=== PATIENT | female | born 1935 | race Caucasian/White ===

== ENCOUNTER 2016-08-28 07:38 | Observation (INO) | payer OTHER ==
[2016-08-26 11:41] VITALS: BMI 51.8
[2016-08-26 11:59] VITALS: BMI 51.8
--- NOTE | 2016-08-26 12:20 | PAT Medication Instructions ---
Service Date Aug 26, 2016. Current Home Medication List Acetaminophen (Tylenol Arthritis Ext Rel), 1,300 MG PO BID Bumetanide (Bumex), 1 TAB PO QAM Docusate Sodium (Stool Softener), 100 MG PO BID Zwaqzpvfgmd-Csibivhauhg-Vul C- (Glucosamine Chondroitin), 1 TAB PO QAM Levothyroxine Sodium (Synthroid), 1 TAB PO QAM Magnesium Oxide (Mag-Ox), 400 MG PO HS Metoprolol Succ (Toprol Xl) (Toprol-Xl), 12.5 MG PO QAM Multivitamin (Multivitamin), 1 TAB PO QAM Potassium Chloride (Micro-K Ext Rel), 20 MEQ PO BID Pyridoxine Hcl (Pyridoxine Hcl), 1 TAB PO QAM Spironolactone (Aldactone), 0.5 TAB PO QAM Tobramycin/Dexamethasone 0.3% Oph (Tobradex 0.3% Oph), 1 DROP OPL QID Medication Instructions For Your Scheduled Surgery - Per 's instructions: Metoprolol Succ (Toprol Xl) (Toprol-Xl), 12.5 MG PO QAM - Hold the following medications the morning of surgery: Bumetanide (Bumex), 1 TAB PO QAM Mcipeuvudde-Miclphhxwoy-Xht C- (Glucosamine Chondroitin), 1 TAB PO QAM Pyridoxine Hcl (Pyridoxine Hcl), 1 TAB PO QAM Multivitamin (Multivitamin), 1 TAB PO QAM Spironolactone (Aldactone), 0.5 TAB PO QAM Docusate Sodium (Stool Softener), 100 MG PO BID Potassium Chloride (Micro-K Ext Rel), 20 MEQ PO BID - Take the following medications the morning of surgery with a sip of water OTHERWISE NOTHING TO EAT OR DRINK AFTER MIDNIGHT: Levothyroxine Sodium (Synthroid), 1 TAB PO QAM Acetaminophen (Tylenol Arthritis Ext Rel), 1,300 MG PO BID (may take if needed up to 4 hours prior to surgery) Tobramycin/Dexamethasone 0.3% Oph (Tobradex 0.3% Oph), 1 DROP OPL QID - Take the following medications as scheduled the night before surgery: Acetaminophen (Tylenol Arthritis Ext Rel), 1,300 MG PO BID Magnesium Oxide (Mag-Ox), 400 MG PO HS Tobramycin/Dexamethasone 0.3% Oph (Tobradex 0.3% Oph), 1 DROP OPL QID Docusate Sodium (Stool Softener), 100 MG PO BID Potassium Chloride (Micro-K Ext Rel), 20 MEQ PO BID If you have any questions please call us at [phone] (Sandra Medina PA-C ) or [phone] or [phone]
[2016-08-26 12:29] VITALS: BMI 51.8
[2016-08-26 12:38] LABS: HEMATOCRIT 36.8 % (37-47); MEAN CELL VOLUME 100.5 fL (80-100); MEAN CORPUSCULAR HEMOGLOBIN 34.2 pg (25-34); MEAN PLATELET VOLUME 8.3 fL (7.4-10.4); PLATELET COUNT 310 K/uL (130-400); RED BLOOD COUNT 3.66 M/uL (4.2-5.4)
[2016-08-26 12:50] LABS: INR 1.1 (0.9-1.1); PROTHROMBIN TIME (PATIENT) 11.3 SECONDS (9.0-12.0)
[2016-08-26 12:56] VITALS: BMI 52.0
[2016-08-26 13:05] LABS: BUN/CREATININE RATIO 14.4 (10-20); CALCIUM 9.1 mg/dl (8.5-10.1); CREATININE 0.96 mg/dl (0.60-1.20); POTASSIUM 4.4 mmol/L (3.5-5.1)
[~2016-08-28] VITALS: Ht 152.4 cm; Wt 123.7 kg
[~2016-08-28 07:38] MED LIST: ACET1TAB84 PO; BACITRACIN 50000 UNIT VIAL ONE; BUME1TAB PO; BUPIVACAINE 0.5 % 5 MG/1 ML MPF 30ML VIAL ONE; CLINDAMYCIN 600 MG/54 ML D5W IV SCH; DOCU100C PO; GLUCTAB7 PO; LACTATED RINGER'S 1000ML 1,000 ML IV SCH; LEVO75TA PO; LIDOCAINE HCL 1% 20 ML VIAL ONE; MAGN400T6 PO; METO25TA3 PO; MULT-506 PO; POTA-335 PO; PROPOFOL IV EMULSION 10 MG/ML 100 ML VIAL IV ONE; PYRI100T6 PO; SPIR25TA PO; TOBRSUS OPL
[2016-08-28] MEDS ORDERED: MIDAZOLAM HCL 1 MG/ML 2ML VIAL ONE (07:42)
[2016-08-28] MEDS ORDERED: FENTANYL CITRATE INJ 50 MCG/1 ML 2 ML VIAL ONE ×3 (07:42→13:00)
[2016-08-28 08:08] VITALS: BP 146/72; PULSE 72; TEMP 36.5; O2SAT 94; Ht 152.4 cm; Wt 123.7 kg
--- NOTE | 2016-08-28 08:29 | History & Physical Bridge Note ---
H&P Re-Evaluation Bridge Note: I have examined the patient, reviewed the History & Physical and in the interval since the performance of the History & Physical I have noted the following changes of clinical significance: NEW UPDATED HNP DICTATED TODAY PATIENT FOR BIV PACEMAKER
--- NOTE | 2016-08-28 08:51 | HISTORY & PHYSICAL EXAMINATION ---
DATE OF ADMISSION: 08/28/2016 REFERRING PHYSICIAN: Dr. Heredia. HISTORY OF PRESENT ILLNESS: This is a 81-year-old female who I saw in the office initially back in June because of possible referral for a biventricular device. She has a past medical history of nonischemic cardiomyopathy, ejection fraction 20%, which was diagnosed in February 2016. Repeat echo shows that the EF is still low, chronic systolic heart failure, [place] Heart Association class 3, left bundle branch block, coronary artery disease by catheterization in May 2016, mild nonobstructive disease, hypertension and hyperlipidemia. When I saw her in the office in June with her daughter she had been doing fairly better, her shortness of breath was at baseline, she can ambulate around the house, but up and down stairs she does get short of breath. She denied any lightheadedness, dizziness, chest pain, palpitations, orthopnea or syncope and her lower extremity edema is at baseline. When I saw her in June she wanted to go home and think more about the procedure. She then saw my partner, Dr. Heredia in followup and agreed that she is ready to go through the procedure however not until after the new years. She presents today to have the procedure. PAST MEDICAL HISTORY: In addition to those listed above, diverticulitis, gastroesophageal reflux disease, calculus of the kidney, hypothyroidism, osteoarthritis. PAST SURGICAL HISTORY: Hysterectomy, total knee replacement bilaterally, kidney stones and cholecystectomy. ALLERGIES: ADVIL, ASPIRIN AND PENICILLIN. FAMILY HISTORY: Noncontributory due to the patient's age. SOCIAL HISTORY: She is a nonsmoker, no alcohol. . HOME MEDICATIONS: Potassium, metoprolol, Bumex, Aldactone, Synthroid, magnesium, meclizine, multivitamins, glucosamine, stool softeners and Tylenol. REVIEW OF SYSTEMS: All other 10 point review of systems are reviewed and are essentially negative at this time. See HPI for pertinent positives. PHYSICAL EXAMINATION: VITAL SIGNS: 36?C, 72 heart rate, respirations 16, blood pressure 146/72, oxygen saturation 94% on room air. GENERAL: She is awake, alert, oriented x3, no acute distress, sitting up comfortably in the bed. HEAD, EYES, EARS, NOSE, AND THROAT: Normocephalic, atraumatic. Extraocular motions intact. Sclerae is nonicteric. Mucous membranes moist. NECK: Supple, no carotid bruits appreciated. No JVD. CARDIOVASCULAR: Normal S1, S2, regular rate and rhythm, positive systolic murmur 2/6. Pulses are intact. LOWER EXTREMITIES: +2 bilateral lower extremity edema. PULMONARY: Clear to auscultation bilaterally. No wheezes, rales or rhonchi. ABDOMEN: Soft, nontender. NEUROLOGIC: Grossly intact. SKIN: Grossly intact. PERTINENT TESTING: EKG from May 2016 sinus laurel at 53 beats per minute with left bundle branch block. Echocardiogram from May 2016, ejection fraction 20-24%, diastolic dysfunction grade 1, moderately calcified aortic valve, borderline severe aortic stenosis by Doppler, but it is overestimated in the setting of severe LV dysfunction, mild functional MR. Echo in February 2016 EF was 20-24%, grade 1 diastolic dysfunction. Left atrium mildly enlarged, moderate calcified aortic valve, borderline severe aortic stenosis but again underestimated due to the decreased LV function. Cardiac catheterization in May 2016, mild nonobstructive coronary disease, mild to moderate , moderate pulmonary hypertension, diffuse hypofunction with an EF of 25-30%. Hematology: WBC 6.3, hemoglobin 12, hematocrit 36, platelets 310. Chemistry: Sodium 136, potassium 4.4, chloride 100, carbon dioxide 29, BUN 14, creatinine 0.96, glucose 100, calcium 9.1. Coagulation: PT 11.3, INR 1.1. IMPRESSION: 1. Nonischemic cardiomyopathy, ejection fraction 20%, newly discovered in February 2016, remains low despite medication. 2. Left bundle branch block. 3. Chronic systolic heart failure, [place] Heart Association class 3. 4. Coronary artery disease by catheterization, mild nonobstructive disease in May 2016. 5. Mild to moderate aortic stenosis. 6. Hypertension. 7. Hyperlipidemia. 8. Hypothyroidism. PLAN: Recommend biventricular pacemaker. The patient was informed of risks, benefits, alternatives to the procedure. Risks include but not limited to sudden cardiac , cardiac arrhythmias, cerebrovascular accident, myocardial infarction, injury to the blood vessels, chamber of the heart, bleeding, lungs, injury to the lungs, bleeding and infection. The patient understood these risks and agreed to undergo the procedure as planned. Informed consent was obtained.
[2016-08-28] MEDS ORDERED: EpHEDrine SULFATE 50MG/5ML SYR ONE (09:38)
[2016-08-28] MEDS ORDERED: PHENYLEPHRINE 100MCG/ML 5ML SYR ONE (09:38)
[2016-08-28] MEDS ORDERED: PROPOFOL IV EMULSION 10 MG/ML 20 ML VIAL IV ONE ×2 (09:38→12:32)
[2016-08-28] MEDS ORDERED: LIDOCAINE HCL 2% 2 ML VIAL (20MG/ML) ONE (09:38)
[2016-08-28] MEDS ORDERED: PROPOFOL IV EMULSION 10 MG/ML 100 ML VIAL IV ONE (12:26)
--- NOTE | 2016-08-28 13:23 | [facility] Post Operative Brief Note ---
Immediate Operative Summary Operative Date Aug 28, 2016. Pre-Operative Diagnosis NICM, LBBB, CHRONIC SYSTOLIC HF, NYHA CLASS III Post-Operative Diagnosis SAME Procedure(s) Performed BIV RATE RESPONSIVE PACEMAKER Surgeon GLENROY WANG Supervisor Fireworks Assembly Surgeon(s) NONE Estimated Blood Loss 30CC Findings NONE Fluids (cc crystalloids) 400CC Specimens NONE Drains NONE Anesthesia 2MG VERSED, 300MCG FENTANTYL, 1400MG PROPOFOL Complication(s) None Disposition PCU
--- NOTE | 2016-08-28 13:25 | Procedure Note ---
Post-Mod Sedation Assessment General Date of Moderate Sedation Aug 28, 2016. Vital Signs: Vital Signs Past 12 Hours Date Time Temp Pulse Resp B/P Pulse Ox O2 Delivery O2 Flow Rate FiO2 08/28/16 08:08 36.5 72 16 146/72 94 Room Air Review - Discharge Criteria Vital Signs Stable: Yes Alert/Oriented/Conversant: Yes Returned to Baseline Mental St: Yes Nausea Absent/Minimal: Yes Pain/Discomfort/Absent/Minimal: Yes Normal/Baseline Respirations: Yes Active Bleeding?: No Pt Received D/C Instructions: N/A Prescriptions Given: None Specific Proced. D/C Criteria Distal Pulses Present (Cardiac: N/A Groin site assessed-Card Cath: N/A Voided Prior To Discharge: N/A Discharged Patients Adult Escort/Transportation: N/A
[2016-08-28] MEDS ORDERED: OXYCODONE/ACETAMINOPHEN 5-325 TAB PO PRN (13:30)
[2016-08-28] MEDS ORDERED: ACETAMINOPHEN 325 MG TAB PO PRN (13:30)
--- NOTE | 2016-08-28 13:34 | Discharge Summary ---
Discharge Summary Admission Date: 08/28/2016 Discharge Date: Aug 29, 2016 Discharge Disposition: Home Principal Diagnosis: NICM Secondary Diagnoses/Problems: LBBB CHRONIC SYSTOLIC HF, NYHA CLASS III HTN HLD CAD NONOBSTRUCTIVE BY CATH 05/2016 MILD TO MODERATE Procedures: BIVENTRICULAR PERMANENT PACEMAKER WITH PERIPHERAL VENOGRAM Medication Reconciliation Continued Medications: Acetaminophen (Tylenol Arthritis Ext Rel) 650 Mg Cplt 1300 MG PO BID, CAP Bumetanide (Bumex) 1 Mg Tab 1 TAB PO QAM, TAB 1 Refill Docusate Sodium (Stool Softener) 100 Mg Cap 100 MG PO BID Tncmbtknkzg-Ljjqnyqshea-Yil C- (Glucosamine Chondroitin) 1 Tab Tab 1 TAB PO QAM Levothyroxine Sodium (Synthroid) 75 Mcg Tab 1 TAB PO QAM, TAB 5 Refills Magnesium Oxide (Mag-Ox) 400 Mg Tab 400 MG PO HS, TAB Metoprolol Succ (Toprol Xl) (Toprol-Xl) 25 Mg Tabcr 12.5 MG PO QAM, #30 TAB Multivitamin (Multivitamin) Tab 1 TAB PO QAM, TAB Potassium Chloride (Micro-K Ext Rel) 20 Meq Cap 20 MEQ PO BID, CAP Pyridoxine Hcl (Pyridoxine Hcl) 100 Mg Tab 1 TAB PO QAM Spironolactone (Aldactone) 25 Mg Tab 0.5 TAB PO QAM, TAB 1 Refill Tobramycin/Dexamethasone 0.3% Oph (Tobradex 0.3% Oph) Susp 1 DROP OPL QID Admission Information Physical Exam (per Admitting): BRADYCARDIA, +MURMUR CTA B/L NO W/R/R SOFT NO EDEMA B/L AAOX3 Hospital Course Patient admitted for elective biventricular pacemaker implant. Underwent procedure without any complications. Monitored overnight and discharged home in stable condition Total time spent on discharge = This includes examination of the patient, discharge planning, medication reconciliation, and communication with other providers. Discharge Instructions ACTIVITY RECOMMENDATIONS: * Do not raise affected arm over head for 4 weeks. SPECIAL CARE INSTRUCTIONS: * If bleeding occurs, apply direct pressure to area for 5 minutes. * Call your doctor if you have severe pain, fever, drainage or bleeding at site. * Keep dry for 48 hours. * Keep any scheduled doctor's appointment. * Implant Card - hand held device with website information given. SKIN IRRITATION: * You may experience some redness and/or swelling in the area where radiation was administered. If any skin irritation occurs, please contact your family physician. FOLLOW UP VISIT: Keep any scheduled doctor appointments.
--- NOTE | 2016-08-28 13:36 | Discharge Instructions ---
Discharge Instructions Admission Reason for Admission: Cardiomyopathy, Left Bundle Branch Block, Chf Discharge Discharge Diagnosis / Problem: nicm Discharge Goals Goal(s): Improve function Activity Recommendations Activity Limitations: as noted below Lifting Limitations: no more than 10 pounds (with the left arm for 2 weeks; do not lift the left elbow over the left shoulder for 1 month) May Resume Sexual Activity: after follow-up appointment Shower/Bathe: tomorrow Driving or Machine Use: resume 3 days after discharge . Instructions / Follow-Up Instructions / Follow-Up follow up in [facility] device clinic for device and wound check in 7-10 days Current Hospital Diet Patient's current hospital diet: AHA Diet (Heart Healthy), Low Sodium Diet (2gm Na) Discharge Diet Recommended Diet: AHA Diet (Heart Healthy), Low Sodium Diet (2gm Na) Procedures Procedures Performed: BIV RATE RESPONSIVE PACEMAKER Pending Studies Studies pending at discharge: no Medical Emergencies . Who to Call and When: Medical Emergencies: If at any time you feel your situation is an emergency, please call 911 immediately. . Non-Emergent Contact Non-Emergency issues call your: Php Mysql Web Developer . . "Provider Documentation" section prepared by Marnie Chaidez. VTE Core Measure Inpt VTE Proph given/why not?: Treatment not indicated
[2016-08-28] MEDS ORDERED: IV FLUIDS COMPLETED PRN (13:45)
[2016-08-28 16:01] VITALS: O2SAT 97
[2016-08-28 16:07] VITALS: BP 108/72; PULSE 69; TEMP 36.6; O2SAT 97
[2016-08-28 19:25] VITALS: BP 127/73; PULSE 71; TEMP 36.6; O2SAT 96
[2016-08-28] MEDS ORDERED: MAGNESIUM OXIDE 400 MG TAB PO SCH (21:00)
[2016-08-28] MEDS: TOBRAMYCIN/DEXAMETHASONE OPH SUSP 2.5 ML BTL OPL SCH (21:12)
[2016-08-28] MEDS: DOCUSATE SODIUM 100 MG CAP PO SCH (21:13)
[2016-08-28] MEDS: POTASSIUM CHLORIDE 20 MEQ TABCR PO SCH (21:13)
[2016-08-29] VITALS: BP 133/66; PULSE 77; TEMP 36.5; O2SAT 94
[2016-08-29 04:00] VITALS: BP 107/64; PULSE 85; TEMP 37.2; O2SAT 94
[2016-08-29] MEDS ORDERED: LEVOTHYROXINE 75 MCG TAB PO SCH (06:00)
--- NOTE | 2016-08-29 07:19 | DIAGNOSTIC IMAGING REPORT ---
CHEST 2 VIEWS ROUTINE HISTORY: EXACT TIME ORDERED Evaluate for pneumothorax and lead placement COMPARISON: Chest 06/26/2015. FINDINGS: Interval placement of a left pacemaker/defibrillator. No pneumothorax. There is blunting of the left lateral costophrenic sulcus and a few left basilar linear densities. The heart remains mildly enlarged. No evidence for pulmonary edema. The leads appear intact. A few linear densities within the right upper lobe. IMPRESSION: 1. Interval left-sided pacemaker/defibrillator. The leads appear intact. No pneumothorax. 2. Trace left pleural effusion with left basilar subsegmental atelectasis. 3. Stable cardiomegaly. 4. Linear densities within the right upper lobe may represent atelectasis. Electronically signed by: Erik Jameson M.D. 08/29/2016 7:17 AM
[2016-08-29 08:08] VITALS: BP 134/64; PULSE 85; TEMP 37.6; O2SAT 94
[2016-08-29] MEDS ORDERED: METOPROLOL SUCC 25MG EXT REL TAB PO SCH (09:00)
[2016-08-29] MEDS ORDERED: BUMETANIDE 1 MG TAB PO SCH (09:00)
[2016-08-29] MEDS ORDERED: SPIRONOLACTONE 25 MG TAB PO SCH (09:00)
[2016-08-29] MEDS ORDERED: MULTIVITAMIN TAB PO SCH (09:00)
--- NOTE | 2016-08-29 09:23 | Cardiology Follow-Up ---
Subjective Subjective Date of Service: Aug 29, 2016. Pt evaluation today including: conversation w/ patient, conversation w/ family , physical exam, chart review, review of studies Pain: minimal discomfort at incision site Review of Systems Constitutional: + fever, No fatigue Respiratory: No dyspnea on exertion, No shortness of breath, No wheezing Cardiac: No chest pain, No edema, No palpitations Abdomen: No diarrhea, No nausea Endo: No fatigue Objective Vital Signs Last Vital Signs Documentation Date Time Temp Pulse Resp B/P Pulse Ox O2 Delivery O2 Flow Rate FiO2 08/29/16 08:08 37.6 85 18 134/64 94 Room Air 08/28/16 14:30 2 Physical Exam: General Appearance: WD/WN, no apparent distress Eyes: bilateral eyes EOMI, bilateral eyes PERRL, bilateral eyes normal inspection Neck: supple, no JVD Respiratory/Chest: lungs clear, normal breath sounds Cardiovascular: regular rate, rhythm, no edema, + systolic murmur Abdomen: soft Neurologic/Psychiatric: alert, oriented x 3 Skin: warm/dry, no rash (left pectoral incision intact with mild ecchymosis; no hematoma) Assessment and Plan Impression: 1. NICM, EF 25% diagnosed 02/2016 2. LBBB 3. Chronic systolic HF, NYHA Class III 4. CAD mild non-obstructive disease by cath 05/2016 5. Mild to moderate 6. HTN 7. Hypothyroidism 8. HLD Plan: -Normal BiV ppm function -Ok for discharge home -Continue home medications -Pt not allowed to lift the left elbow over the left shoulder for 1 month; do not lift more than 10 pounds with the left arm for 2 weeks -F/u in [facility] device clinic in 7-10 days Medications: Medications Administered Medications (Trade) Dose Ordered Sig/Shayla Route Start Time Stop Time Status Last Admin Dose Admin Lactated Ringer's 1,000 ml @ 15 mls/hr Q24H IV 08/28/16 06:00 08/29/16 05:59 DC 08/28/16 08:15 15 MLS/HR Clindamycin Phosphate (Cleocin 600mg/ 54ml D5W) 54 ml @ 100 mls/hr PREOP IV 08/28/16 06:00 08/28/16 18:02 DC 08/28/16 08:58 100 MLS/HR Lidocaine HCl (Xylocaine 1% Inj (Local)) 20 ml STK-MED ONCE .ROUTE 08/28/16 07:26 08/28/16 07:27 DC 08/28/16 07:26 20 ML Bupivacaine HCl (Marcaine 0.5% MPF Inj) 30 ml STK-MED ONCE .ROUTE 08/28/16 07:26 08/28/16 07:27 DC 08/28/16 07:26 30 ML Bacitracin (Bacitracin Inj) 50,000 units STK-MED ONCE .ROUTE 08/28/16 07:26 08/28/16 07:27 DC 08/28/16 07:26 50,000 UNITS Heparin Sodium/ Sodium Chloride (Heparin Sod/Ns 2 Units/Ml) 2,000 unit STK-MED ONCE .ROUTE 08/28/16 07:30 08/28/16 07:31 DC 08/28/16 07:30 2,000 UNIT Acetaminophen (Tylenol Tab) 650 mg Q4H PRN PO 08/28/16 13:30 09/27/16 13:29 08/29/16 01:40 650 MG Docusate Sodium (coLACE CAP) 100 mg BID PO 08/28/16 21:00 09/27/16 20:59 08/28/16 21:13 100 MG Levothyroxine Sodium (Synthroid Tab) 75 mcg DAILYBB PO 08/29/16 06:00 09/28/16 05:59 08/29/16 06:20 75 MCG Magnesium Oxide (Mag-Ox Tab) 400 mg HS PO 08/28/16 21:00 09/27/16 20:59 08/28/16 21:13 400 MG Potassium Chloride (Klor-Con Tab) 20 meq BID PO 08/28/16 21:00 09/27/16 20:59 08/28/16 21:13 20 MEQ Tobramycin/ Dexamethasone (Tobradex Oph Susp) 1 drops QID OPL 08/28/16 17:00 09/27/16 16:59 08/28/16 21:12 1 DROPS Lab Results: Telemetry:BiV Paced ECG: biv paced CXR: Reviewed with the radiologist; the Leads are in position and there is no PTX PPM Interrogation: Normal and stable lead testing from implant
[2016-08-29] MEDS: TOBRAMYCIN/DEXAMETHASONE OPH SUSP 2.5 ML BTL OPL SCH (09:35)
[2016-08-29] MEDS: POTASSIUM CHLORIDE 20 MEQ TABCR PO SCH (09:37)
[2016-08-29] MEDS: DOCUSATE SODIUM 100 MG CAP PO SCH (09:37)
[2016-08-29 10:03] VITALS: BP 134/64; PULSE 85; TEMP 37.6; O2SAT 94
--- NOTE | 2016-08-30 02:22 | OPERATIVE REPORT ---
DATE OF OPERATION: 08/28/2016 PREOPERATIVE DIAGNOSES: Nonischemic cardiomyopathy, left bundle branch block, chronic systolic congestive heart failure, [place] Heart Association class 3. POSTOPERATIVE DIAGNOSES: Same. PROCEDURE: A biventricular permanent pacemaker under fluoroscopic guidance along with peripheral venogram. SURGEON: GLENROY WANG [employer] OPERATOR: NONE ANESTHESIA: MONITORED ANESTHETIC CARE ADMINISTERED VIA ANESTHESIOLOGY; 2MG VERSED, 300MCG FENTANYL; 1400MG PROPOFOL; START 08:55 END 13:15 PROCEDURE TIME: COMPLICATIONS: Coronary sinus perforation that resolved while in the lab, was asymptomatic. CONDITION: STABLE URINE OUTPUT: N/A DRAINS: NONE SPECIMEN: NONE IV FLUIDS: 400CC IV CONTRAST: 60CC BLOOD LOSS: 30CC INDICATIONS: This is an 81-year-old female who has a past medical history of nonischemic cardiomyopathy, ejection fraction about 25%, diagnosed in February of 2016; left bundle branch block; chronic systolic congestive heart failure, [place] Heart Association class 3; hypertension; [id number] aortic stenosis; hyperlipidemia; hypothyroidism; and obesity. After appropriate medications and repeat echocardiogram, she remained to have a dilated cardiomyopathy and having heart failure symptoms and was recommended a biventricular device. She opted for a pacemaker. Due to her age, she did not want to have any defibrillator. CONSENT: Consent was obtained prior to patient going into electrophysiology lab. The patient was explained the risks, benefits and alternatives to the procedure. Risks include but not limited to sudden cardiac , cardiac arrhythmias, cerebrovascular accident, myocardial infarction, injury to the blood vessels, chamber of the heart and lungs, bleeding and infection. The patient understood these risks and agreed to undergo the procedure as planned. Informed consent was obtained. DESCRIPTION OF THE PROCEDURE: The patient was brought into the electrophysiology lab in a fasting state. She was connected to continuous cardiac monitoring. Timeout was performed to ensure patient's identity and procedure correctly. The patient received prophylactic antibiotics prior to incision. She was prepped and draped over the left infraclavicular space in normal surgical standard fashion. Monitored anesthetic care was given throughout the procedure via anesthesiology for patient's comfort level. [place] precautions were maintained throughout the procedure. A 10 mL of 1% lidocaine/bupivacaine mixture were given in the left deltopectoral groove. Incision was made in left deltopectoral groove. Blunt dissection was performed down to identify the cephalic vein. The cephalic vein was isolated using 0 silk sutures. A peripheral venogram was then performed using 10 mL of IV contrast diluted in 10 mL of saline followed by a 20 mL flush to identify the axillary vein and venous access was obtained through the axillary vein as well. I then went back to the cephalic vein and nicked it with an 11 blade and a guidewire was inserted without any resistance. An 8-Kittitian sheath was then inserted over the guidewire without any resistance and the dilator was removed and a second guidewire was inserted through the sheath to allow for retained venous access. The sheath was removed, flushed, dilator reinserted and 7-Kittitian sheath was then reinserted over one of the guidewires through the cephalic vein. The guidewire and dilator were removed. The right ventricular pacing lead was then advanced through the 8-Kittitian sheath and positioned into the right ventricular apex under fluoroscopic guidance. There was adequate pacing and sensing thresholds and no diaphragmatic stimulation with high output pacing. The 8-Kittitian sheath was peeled away and lead was fixated to the pectoralis muscle using 0 silk suture. A second 7-Kittitian sheath was then advanced over the retained guidewire in the cephalic vein. The guidewire and dilator were removed. The right atrial lead was then advanced into the right atrium and positioned into the right atrial appendage under fluoroscopic guidance. There was adequate pacing and sensing thresholds and no diaphragmatic stimulation with high output pacing. The 7-Kittitian sheath was peeled away and lead was fixated to pectoralis muscle using 0 silk suture. A 9.5-Kittitian sheath was then inserted over the retained guidewire in the axillary vein via the axillary vein access without any resistance. The guidewire and dilator were removed. An MPX Attain Command outer coronary sinus catheter was inserted in the guidewire and dilator were removed, and using a diagnostic coronary sinus Decapolar catheter, the coronary sinus was cannulated. Of note, there was an S-shaped curve to the coronary sinus os. Ultimately, I did have to switch out the Attain Command MPX outer coronary sinus catheter for Attain extended hook coronary sinus catheter. Once I had better positioning in the coronary sinus, I did a coronary sinus venogram. There was 1 small branch posterolateral, it also had a takeoff from the main coronary sinus that was S-shaped. I was able to get a Whisper down here. I tried to push get a lead; however, it was not able to track over the Whisper, was not also able to track over a mailman. I also tried with an inner 90 catheter, but I still do not have the stability due to the acute angle S-shape from that the ostium of the branch had. I then performed an additional venogram looking for bailout coronary sinus branch which I did see and was able to cannulate using and the Attain extended hook outer catheter. Then I placed a Whisper out into the branch following then with the tracking over them with LV pacing lead. The pacing thresholds were not ideal, but were acceptable given I had no other pacing options. The Attain command extended hook coronary sinus outer sheath then was split under fluoroscopy. The LV lead was then sutured to the pectoralis muscle using 0 silk suture. Of note, during one of my coronary sinus venograms, I did notice that there appeared to be some small perforation, but this resolved in prior venograms. So, there must have been at one point one of the branches that I was trying to wire a small coronary sinus perforation. The patient was asymptomatic and it resolved during the course of the procedure. A pacemaker pocket was created using blunt dissection over the pectoralis muscle within the fascia. The pocket was flushed with copious amounts of bacitracin saline wash and inspected for hemostasis. The pulse generator was then attached to the leads making sure that the pins were in appropriate position, passed the set screws and set screws were all tightened. Pulse generator was then placed in the pocket, making sure that the leads were lying flat beneath the device. A stay stitch using 0 silk suture was used to secure the device to the pectoralis muscle. Ramón stat was placed in the pocket to prevent any extra oozing. The incision was then closed in a 3-layer fashion using 2 layers of interrupted 2-0 Vicryl followed by a 4-0 Monocryl running stitch, and Dermabond was applied. EQUIPMENT: 1. Pulse generator is a Medtronic Viva MILK CONDENSER-P [id number], serial #[id number]. 2. Right atrial lead Medtronic 5076-52 cm, serial #[id number]. 3. Right ventricular lead, Medtronic 5076-58 cm, serial #[id number]. 4. Left ventricular lead Medtronic 4196, 88 cm, serial #[id number]. INTRAOPERATIVE TESTIN. Right atrial lead: P-wave sensing 3.7 millivolts, impedance 583 ohms, threshold 3.7 volts at 0.6 milliamps. 2. Right ventricular lead: R-wave sensing 6.1 millivolts, impedance 659 ohms, threshold 0.3 volts at 0.5 milliamps. 3. Left ventricular lead programmed LV ring to the pacing can, impedance 641 Ohms, threshold 4.7 volts at 8.7 milliamps. FINAL MEASUREMENTS THROUGH THE DEVICE: 1. Right atrial lead: P-wave sensing 3.9 millivolts, impedance 418 ohms, threshold 0.5 volts at 0.4 milliseconds. 2. Right ventricular R-wave sensing 7.1 millivolts, impedance 513 ohms, threshold 0.75 volts at 0.4 milliseconds. 3. LV programmed unipolar pacemaker can to LV ring, impedance 398 ohms, threshold 3.5 volts at 1 millisecond. FINAL PARAMETERS: DDDR 60/120. Adaptive BiV and LV, the right atrial amplitude 3.5 volts, pulse width 0.4 milliseconds, sensitivity 0.3 millivolts. Right ventricular amplitude 3.5 volts, pulse width 0.4 milliseconds, sensitivity 0.9 millivolts. The left ventricular amplitude 5.5 volts and pulse width 1 millisecond. CONCLUSION: Successful implantation of biventricular permanent rate responsive pacemaker under fluoroscopic guidance along with peripheral venogram. PLAN: Monitor patient overnight, 12-lead ECG, chest x-ray, continue her home medications. She is not allowed to lift left elbow or left shoulder for 1 month, no heavy lifting with the left arm for 2 weeks. She should follow up in our [facility] office in 7-10 days for device and wound check. I attest to the content of the Intraoperative Record and any orders documented therein. Any exceptions are noted below. HERNANDEZ
--- NOTE | 2016-09-24 06:49 | Anesthesiology Progress Note ---
Anesthesia Post Op Note Date & Time Sep 24, 2016 at 06:48 Vital Signs Pain Intensity: 0.0 Notes Mental Status: alert / awake / arousable, participated in evaluation Pt Amnestic to Procedure: Yes Nausea / Vomiting: adequately controlled Pain: adequately controlled Airway Patency, RR, SpO2: stable & adequate BP & HR: stable & adequate Hydration State: stable & adequate Anesthetic Complications: no major complications apparent Note entered late for procedure on 08/28/16. I recall this pt and reviewed post- op notes.
== END 2016-08-29 10:56 | disposition home or self-care (01) ==
LOC: C.ACU 07:38 → C.2T 13:27
PROVIDERS: ADMIT Internal Medicine; ATTEND Internal Medicine
DX: I42.0 Dilated cardiomyopathy (principal); I44.7 Left bundle-branch block, unspecified; I50.22 Chronic systolic (congestive) heart failure; K21.9 Gastro-esophageal reflux disease without esophagitis; E03.9 Hypothyroidism, unspecified; M19.90 Unspecified osteoarthritis, unspecified site; I10 Essential (primary) hypertension; E78.5 Hyperlipidemia, unspecified; E66.9 Obesity, unspecified; I35.0 Nonrheumatic aortic (valve) stenosis; I25.10 Atherosclerotic heart disease of native coronary artery without angina pectoris; Z96.653 Presence of artificial knee joint, bilateral; Z87.442 Personal history of urinary calculi; Z90.710 Acquired absence of both cervix and uterus; Z88.0 Allergy status to penicillin

== ENCOUNTER 2019-02-04 17:17 | Observation (INO) ==
[2019-02-04 18:08] LABS: Basophils # (auto) 0.03 K/uL (0-0.2); Basophils % (auto) 0.5 %; Eosinophils # (auto) 0.06 K/uL (0-0.5); Hematocrit (blood only) 36.1 % (37-47); Hemoglobin 12.3 g/dL (12.0-16.0); Immature Granulocytes # (auto) 0.01 K/uL (0.00-0.02); Immature Granulocytes % (auto) 0.2 %; Lymphocytes # (auto) 2.21 K/uL (1.2-3.4); Lymphocytes % (auto) 35.6 %; Mean Corpuscular Hgb Conc 34.1 g/dL (32-36); Monocytes % (auto) 9.7 %; Platelet Count 245 K/uL (130-400); RDW Coefficient of Variation 13.5 % (11.5-14.5); RDW Standard Deviation 50.4 fL (36.4-46.3); Red Blood Count 3.47 M/uL (4.2-5.4); White Blood Count 6.21 K/uL (4.8-10.8)
[2019-02-04 18:33] LABS: Alanine Aminotransferase 17 U/L (12-78); Albumin Level 3.6 gm/dl (3.4-5.0); Alkaline Phosphatase 77 U/L (45-117); Aspartate Aminotransferase 19 U/L (15-37); BUN Creatinine Ratio 19.7 (10-20); Bilirubin,Total 0.3 mg/dl (0.2-1); Blood Urea Nitrogen 20 mg/dl (7-18); Calcium 9.2 mg/dl (8.5-10.1); Carbon Dioxide 27 mmol/L (21-32); Chloride 105 mmol/L (98-107); Creatine Kinase 49 U/L (26-192); Creatine Kinase MB < 1.0 ng/ml (0.5-3.6); Est GFR (African American) 60.3; Est GFR (Non-African American) 52.1; Globulin 3.6 gm/dl (2.5-4.0); Glucose 99 mg/dl (70-99); NT Pro B Type Natriuretic Pept 410 pg/ml (0-1800); Potassium 4.3 mmol/L (3.5-5.1); Sodium 140 mmol/L (136-145); Total Protein 7.2 gm/dl (6.4-8.2); Troponin I < 0.015 ng/ml (0-0.045)
[2019-02-04] MEDS ORDERED: FUROSEMIDE 40 MG/4 ML VIAL IV STA (18:40)
--- NOTE | 2019-02-04 18:41 | XRay Report ---
XR chest 1V portable CLINICAL HISTORY: 83 years-old Female presenting with Chest Pain. TECHNIQUE: Portable upright AP view of the chest was obtained. COMPARISON: 05/31/2018. FINDINGS: Left subclavian implanted cardiac device with several leads. The lead termini are not visualized. Ath erosclerosis of the aortic arch. Mildly enlarged cardiac silhouette. Mild pulmonary vascular prominen ce similar to prior. Positioning of the patient and patient body habitus limits evaluation of the dewey g bases. Allowing for this, no gross focal infiltrate. No large effusion or pneumothorax. Degenerativ e changes of the thoracic spine. Osteopenia suspected. IMPRESSION: 1. Positioning of the patient as well as patient body habitus limits evaluation of the lung bases. T his decreases diagnostic sensitivity the exam. 2. Mild cardiomegaly with mild volume overload. No akil pulmonary edema. Electronically signed by: Shimon Foster M.D. 02/04/2019 6:39 PM
[2019-02-04] MEDS ORDERED: OPTIRAY 320 125ml IV PRN (19:32)
--- NOTE | 2019-02-04 19:47 | CT Scan Report ---
CT angio chest PE protocol CLINICAL HISTORY: 83 years-old Female presenting with atypical chest pain, clinical concern for pulmo nary embolus. TECHNIQUE: Multidetector CT angiography of the chest was performed after administration of intravenou s contrast. 3-D volumetric and/or maximum intensity projection (MIP) images were subsequently reconst ructed for review. IV contrast: 77 mL of Optiray 320. One or more dose lowering techniques were used consistent with the principles of ALARA (as low as reasonably achievable), including automatic exposu re control, mA or kV adjustment to individual patient size, and/or use of iterative reconstruction. COMPARISON: 06/26/2015. CT DOSE (mGy.cm): The estimated cumulative dose is 624.50 mGy.cm. FINDINGS: [employer] Detailer topogram: Left subclavian pacer with leads to the right atrium and right ventricular apex. An a dditional lead is in place possibly within the coronary sinus. Cholecystectomy clips. Pulmonary vasculature: The study is adequate for assessment of the pulmonary vascular tree. No filling defect within the pul monary arteries to suggest embolus. Main pulmonary artery is not enlarged. No flattening of the inter ventricular septum. No intracardiac filling defect. No reflux of contrast into the hepatic veins. Remaining chest: Soft tissues: Normal thyroid and thoracic inlet. No axillary, supraclavicular, mediastinal, or hilar lymphadenopathy. Atherosclerosis of the aorta. Normal heart size. Coronary artery and aortic valve ca lcification. No pericardial or pleural effusion. Well-defined hypodensity in anterior left hepatic lo be likely hepatic cyst. Lungs and airways: No pneumothorax. Central airways patent. Pulmonary arteries are not significantly enlarged relative to adjacent bronchi. No interlobular septal thickening. Minimal dependent changes l ikely atelectasis. Musculoskeletal: Degenerative changes of the spine. Osteopenia. Degenerative changes of the glenohume ral joints. IMPRESSION: 1. No evidence of pulmonary embolus. No acute intrathoracic pathology. Electronically signed by: Shimon Foster M.D. 02/04/2019 7:45 PM
[2019-02-04 19:57] LABS: Appearance Urine Clear (Clear); Bilirubin Urine Negative (Negative); Blood Urine Negative (Negative); Color Urine Yellow; Glucose Urine UA Negative (Negative); Ketones Urine Negative (Negative); Leukocyte Esterase Urine Negative (Negative); Nitrite Urine Negative (Negative); Protein Urine Negative (Negative); Specific Gravity Urine 1.009 (1.000-1.030); Urobilinogen Urine Negative (Negative)
[2019-02-04] MEDS ORDERED: POLYETHYLENE (MIRALAX) 17 GM PACK PO PRN (21:46)
[2019-02-04] MEDS ORDERED: MAGNESIUM HYDROXIDE SUSP 30 ML UDC PO PRN (21:46)
[2019-02-04] MEDS ORDERED: NITROGLYCERIN SL 0.4 MG/TAB TAB SL PRN (21:46)
[2019-02-04] MEDS ORDERED: ACETAMINOPHEN 325 MG TAB PO PRN (21:46)
[2019-02-04] MEDS ORDERED: ONDANSETRON INJ 2 MG/ML 2 ML VIAL IV PRN (21:46)
[2019-02-04] MEDS ORDERED: MECLIZINE HCL 25 MG TAB PO PRN (21:46)
[2019-02-04] MEDS ORDERED: DOCUSATE SODIUM/SENNA 50/8.6MG TAB PO PRN (21:46)
--- NOTE | 2019-02-04 22:28 | History and Physical Report ---
DATE OF ADMISSION: 02/04/2019 CHIEF COMPLAINT: Chest pain. HISTORY OF PRESENT ILLNESS: This is an 83-year-old female with past medical history significant for diabetes, not on medications, hypothyroidism, hyperlipidemia, history of exertional dyspnea, history of CAD, history of idiopathic systolic CHF, left bundle branch block, status post biventricular pacemaker, chronic kidney disease stage III, hypertension, aortic stenosis, chronic lymphedema of both lower extremities, aspirin allergy. Presents with chest discomfort. The patient says since today morning 10:00 she felt flashes like zigzag lightening below the left breast on and off. It happened even at rest. Last episode was about 4:30 p.m. Since then she is doing okay. Her pacemaker was checked a couple of weeks ago. She also noted she goes to lymphedema clinic a couple of times a week and also has lymphedema machine at home and she uses it on one leg each day. The last 2 weeks, her swelling in the lower extremities has been increasing for no apparent reason. The patient has chronic exertional shortness of breath. She uses a walker at home with wheels on it. She lives alone, daughter lives next door. As per daughter, she can take care of most of her work herself. She can cook her own food. The patient recently a few days ago had episode of 1 day of diarrhea and nausea, but that has resolved now. She has chronic dizziness. No headaches. She has issues with her vision, She is going to see ophthalmology soon. Denies any sore throat. No difficulty swallowing, no cough. Appetite is okay. Currently, no nausea, no vomiting, no abdominal pain, somewhat constipated. Normal bladder movements. No blood in the urine, no burning micturition, no rash. As per daughter, her ambulation status has also slightly worsened since last few days. ALLERGIES: ADVIL, ASPIRIN, PENICILLIN, PREDNISONE. PAST MEDICAL HISTORY: As mentioned above. PAST SURGICAL HISTORY: Bilateral total knee replacement, lithotripsy for kidney stones, total hysterectomy for fibroids, laparoscopic cholecystectomy, excision of seborrheic keratosis on the left breast, has a plate in left arm. MEDICATIONS: The patient is on Aldactone 12.5 mg p.o. daily, levothyroxine 75 mcg p.o. daily, potassium chloride 20 mEq p.o. b.i.d., Toprol-XL 12.5 mg p.o. daily, Bumex 1 mg p.o. daily, magnesium 400 mg p.o. daily, meclizine 25 mg p.o. t.i.d. p.r.n., multivitamins 1 tablet daily, glucosamine chondroitin 1 tablet daily, milk of magnesia daily as needed, Tylenol Arthritis 650 mg 2 tablets b.i.d. p.r.n. FAMILY HISTORY: Significant for mother had diabetes and AR at age of 50 and hypertension. SOCIAL HISTORY: , lives alone. Daughter lives next door. No smoking history, no alcohol, no drug use. REVIEW OF SYMPTOMS: As per HPI. Rest of the review of symptoms negative. PHYSICAL EXAMINATION: GENERAL: The patient is old and frail, not in acute distress. VITAL SIGNS: Temperature 36.6, pulse 66, respiratory rate 20, blood pressure 127/65, oxygen 97% on room air. HEENT: No pallor, no icterus. Pupils equal, round, and reactive to light. NECK: No JVD, no neck masses, no carotid bruits. CARDIOVASCULAR: S1, S2 heard, regular rate and rhythm, no murmur, no gallop. RESPIRATORY SYSTEM: Normal AP diameter. No accessory muscle use. No wheezing, no crackles. ABDOMEN: Soft, bowel sounds present. Nontender. No distention. CENTRAL NERVOUS SYSTEM: Cranial nerves II-XII grossly intact. Nonfocal. EXTREMITIES: Chronic gross lymphedema seen in both the lower extremities. LABORATORY DATA: WBC 6.2, hemoglobin 12.3, hematocrit 36.1, platelets 245. Sodium 140, potassium 4.3, chloride 105, bicarbonate 27, BUN 20, creatinine 1, serum glucose 99, calcium 9.0, total bilirubin 0.3, AST 19, ALT 17, alkaline phosphatase 77, total creatinine kinase 49, troponin I less than 0.015. BNP 410. Lipase 79. Urinalysis negative. IMAGING DATA: Chest x-ray, not a good study, but shows mild cardiomegaly with mild volume overload. CT of the chest, no PE, no acute intrathoracic pathology. EKG: AV dual paced rhythm with a rate of 60. ASSESSMENT AND PLAN: This is an 83-year-old female who presents with chest discomfort. 1. Chest discomfort, feeling of flashes of lightening mildly below the left breast. Recently had a pacemaker interrogation a couple of weeks ago. Initial workup was negative. Currently, patient is asymptomatic. We will do serial cardiac enzymes, echocardiogram. Consult cardiology for further recommendations. Pacemaker interrogation as per cardiology. 2. Chronic systolic congestive heart failure, nonischemic, left bundle branch block. Initial EF was 25%. After biventricular pacemaker, the EF improved and latest EF was 45% on echo in November 2018. The patient received a dose of IV Lasix in the ER. Will continue home Bumex and Aldactone follow the echocardiogram. Monitor for any volume overload. 3. History of diabetes, not on any medications. Will follow diabetic diet and follow HbA1c level. 4. Hypothyroidism, on Synthroid. 5. Hypertension, on Toprol-XL and diuretics. We will monitor the blood pressure. 6. Chronic kidney disease stage III, stable. Will follow the labs. 7. bilateral lower extremity lymphedema. Follows with the lymphedema clinic.Will check Doppler. 8. Deep venous thrombosis prophylaxis, sequential compression devices for now. . 9. Disposition: Observe in tele floor. Level 1 full code. MTDD
[2019-02-04] MEDS: POTASSIUM CHLORIDE 20 MEQ TABCR PO SCH (23:04)
[2019-02-05 05:36] LABS: Basophils # (auto) 0.02 K/uL (0-0.2); Basophils % (auto) 0.4 %; Eosinophils # (auto) 0.06 K/uL (0-0.5); Eosinophils % (auto) 1.2 %; Hematocrit (blood only) 35.6 % (37-47); Hemoglobin 12.1 g/dL (12.0-16.0); Lymphocytes # (auto) 1.75 K/uL (1.2-3.4); Lymphocytes % (auto) 36.2 %; Mean Corpuscular Volume 104.1 fL (80-100); Mean Platelet Volume 8.8 fL (7.4-10.4); Monocytes # (auto) 0.54 K/uL (0.11-0.59); Monocytes % (auto) 11.2 %; Neutrophils # (auto) 2.46 K/uL (1.4-6.5); Platelet Count 225 K/uL (130-400); RDW Coefficient of Variation 13.4 % (11.5-14.5); RDW Standard Deviation 50.4 fL (36.4-46.3); Red Blood Count 3.42 M/uL (4.2-5.4); White Blood Count 4.83 K/uL (4.8-10.8)
[2019-02-05 06:01] LABS: BUN Creatinine Ratio 22.7 (10-20); Creatinine Clr Calc Pharmacy 48.9 ml/min; Est GFR (African American) 58.9; Est GFR (Non-African American) 50.8; Magnesium 2.1 mg/dl (1.8-2.4); Potassium 3.8 mmol/L (3.5-5.1)
[2019-02-05 06:13] LABS: Estimated Average Glucose 126 mg/dl
[2019-02-05] MEDS ORDERED: LEVOTHYROXINE SODIUM 75 MCG TABLET PO SCH (06:30)
--- NOTE | 2019-02-05 07:11 | Ultrasound Report ---
BILATERAL LOWER EXTREMITY VENOUS DOPPLER HISTORY: Leg swelling. dvt? COMPARISON STUDY: None. FINDINGS: There is normal compressibility, flow, and augmentation within the bilateral lower extremit y deep venous systems. IMPRESSION: No DVT within the right or left lower extremity. Electronically signed by: Erik Jameson M.D. 02/05/2019 7:09 AM
[2019-02-05] MEDS: POTASSIUM CHLORIDE 20 MEQ TABCR PO SCH (07:33)
[2019-02-05] MEDS ORDERED: NON-FORMULARY MEDICATION (Glucos Sul 2kcl-Msm-Chond-C-Mn [Glucosamine Chondroitin] 1 CAP) PO SCH (09:00)
[2019-02-05] MEDS ORDERED: MAGNESIUM OXIDE 400 MG TAB PO SCH (09:00)
[2019-02-05] MEDS ORDERED: BUMETANIDE 1 MG TAB PO SCH (09:00)
[2019-02-05] MEDS ORDERED: SPIRONOLACTONE 25 MG TAB PO SCH (09:00)
[2019-02-05] MEDS ORDERED: MULTIVITAMIN TAB PO SCH (09:00)
[2019-02-05] MEDS ORDERED: METOPROLOL SUCC 25MG EXT REL TAB PO SCH (09:00)
--- NOTE | 2019-02-05 12:34 | Cardiology Consultation ---
Date of Consultation February 05, 2019 Assessment & Plan (1) Chest pain: Given the patient's risk factors, I think it was a good idea for her to seek emergency department care for her symptoms. Fortunately she has done well with further observation overnight. Serial cardiac isoenzymes are negative, and her echocardiogram findings are stable. She received 1 dose of IV furosemide. I think her volume status is about at its baseline. As I discussed with her, her EKG is nondiagnostic in terms of ischemia due to her chronic ventricular paced rhythm with history of biventricular pacemaker. She has benefited from cardiac or cicatrization therapy as the time for cardiac catheterization in 2016, severe left ventricular systolic dysfunction was present with ejection fraction in the range of 20 to 25%, which was new compared to 2012. Her ejection fraction is now mildly reduced to perhaps at the lower limit of normal on echocardiogram. She has had cardiac catheterization in 2 past occasions with nonobstructive disease. Her present symptoms are atypical for angina did not occur with exertion. Given her stable clinical symptoms, negative cardiac isoenzymes, and stable echocardiogram results, she can be discharged on her chronic prior to hospital medications. History of Present Illness Attending Physician: Joselyn Singh MD History of Present Illness Regla Castano is an 83 year old female seen in cardiology consultation per the request of Dr Valdez for the evaluation of chest pain. Patient is well-known to the undersigned as I follow her as an outpatient. She states that yesterday she had several episodes of the "zigzag" discomfort in her chest. She denies chest pressure or change in her activity tolerance. Her EKG is nondiagnostic due to her chronic ventricular paced rhythm. Serial cardiac enzymes are negative thus far and she is in a good humor feeling well at present. Cardiology Problems List: 1. Nonischemic cardiomyopathy (history of past severe left ventricular systolic dysfunction at proportion to her relatively mild coronary artery disease) in the setting of left bundle branch 2. Patient subsequently underwent biventricular pacemaker (no AICD capability) in August 2015 with favorable response to cardiac recent conization therapy 3. Cardiac catheterization performed in 2011 for chest discomfort, syncope, and left bundle branch block, [facility] revealed nonobstructive CAD with moderate single branch vessel disease of the diagonal 4. Repeat left and right heart catheterization performed at [facility] May 2016 revealed mild to moderate aortic stenosis, mild coronary sclerosis with no significant narrowing of 30% and 50% in the mid left anterior descending coronary artery 5. Chronic lymphedema Allergies Allergy/AdvReac Type Severity Reaction Status Date / Time aspirin Allergy Intermediate Hives, Verified 02/04/19 18:33 shortness of breath ibuprofen Allergy Intermediate Rash, hives Verified 02/04/19 18:33 Penicillins Allergy Intermediate Rash, hives Verified 02/04/19 18:33 adhesive Allergy Mild Reddened Verified 02/04/19 18:33 and sore skin prednisone Allergy Unknown Confusion Verified 02/04/19 18:43 Home Medications Home Medications Medication Instructions Recorded Confirmed Type acetaminophen [Tylenol Arthritis 1,300 mg PO BID 05/31/18 02/04/19 History Pain] bumetanide 1 mg PO QAM 05/31/18 02/04/19 History levothyroxine 75 mcg PO QAM 05/31/18 02/04/19 History magnesium hydroxide [Milk of 15 ml PO DAILY PRN 05/31/18 02/04/19 History Magnesia] magnesium oxide 400 mg PO QAM 05/31/18 02/04/19 History meclizine 25 mg PO TID PRN 05/31/18 02/04/19 History metoprolol succinate [Toprol XL] 12.5 mg PO QAM 05/31/18 02/04/19 History multivitamin 1 tab PO QAM 05/31/18 02/04/19 History potassium chloride 20 meq PO BID 05/31/18 02/04/19 History spironolactone [Aldactone] 12.5 mg PO QAM 05/31/18 02/04/19 History glucos sul [id number] 1 cap PO QAM 02/04/19 02/04/19 History [Glucosamine Chondroitin] sennosides-docusate sodium [Senna 2 tab PO DAILY PRN 02/04/19 02/04/19 History Laxative-Stool Softener] Patient History Medical History History of recurrent UTIs (Acute) Arthritis (Chronic) LBBB (left bundle branch block) (Chronic) Vertigo (Chronic) Systolic heart failure (Chronic) Hypothyroidism (Chronic) Head trauma (Acute) Fall (Acute) Sprain of right shoulder (Acute) Bronchitis (Acute) NICM (nonischemic cardiomyopathy) Right shoulder pain (Acute) Leaky heart valve Lymphedema Pacemaker Surgical History History of knee replacement, total (Resolved) Family History Other No pertinent family history Social History Preferred Language: Bhutanese Communication Ability: Effective Physician Office Secretary Required: No Beliefs That Will Affect Care: None marital status: / Current Living Situation: Alone current occupational status: retired Other Information That Helps Us Care for You: No Feels Safe at Home: Yes Safety Concerns: Feels Safe At This Time Smoking Status: Never smoker Do You Dip or Chew Tobacco: No Second Hand Exposure: No Tobacco Cessation Education Requested by Patient: No Hx Alcohol Use: No Hx Substance Use: No Physical Exam Physical Exam: General: no acute distress and stated age Eyes: conjunctiva are pink and non-injected, sclera clear Neck: normal jugular venous pulse, no hepatojugular reflux Chest: normal shape and normal respiratory effort Lungs: clear to auscultation and percussion Cardiac Exam: - regular heart sounds, no murmurs, rubs, or gallops, no jugular venous distention Abdomen: abdomen soft, non-tender, no abnormal masses and no hepatosplenomegaly Extremities: Findings consistent with chronic lymphedema, without significant volume overload worse than her usual, no evidence of saline Neuro:awake, coversant, follows commands, no focal motor deficits Psych: appropriate affect and insight. Results & Data Vital Signs (Past 12 Hours) Vital Signs Temp Pulse Pulse Resp BP Pulse Ox 02/05/19 11:30 36.6 C 72 16 129/62 94 02/05/19 07:29 36.8 C 78 16 108/69 96 02/05/19 07:28 37 C 63 18 128/77 94 02/05/19 04:37 36.6 C 62 17 120/71 94 Laboratory Results Cardiac Enzymes 02/04/19 02/04/19 02/05/19 Range/Units 17:57 22:51 05:21 AST 19 (15-37) U/L CK-MB (CK-2) < 1.0 (0.5-3.6) ng/ml Troponin I < 0.015 < 0.015 < 0.015 (0-0.045) ng/ml 02/05/19 Range/Units 10:45 AST (15-37) U/L CK-MB (CK-2) (0.5-3.6) ng/ml Troponin I < 0.015 (0-0.045) ng/ml CBC 02/04/19 02/05/19 Range/Units 17:57 05:21 WBC 6.21 4.83 (4.8-10.8) K/uL RBC 3.47 L 3.42 L (4.2-5.4) M/uL Hgb 12.3 12.1 (12.0-16.0) g/dL Hct 36.1 L 35.6 L (37-47) % Plt Count 245 225 (130-400) K/uL Neut # (Auto) 3.30 2.46 (1.4-6.5) K/uL Lymph # (Auto) 2.21 1.75 (1.2-3.4) K/uL [place] # (Auto) 0.60 H 0.54 (0.11-0.59) K/uL Eos # (Auto) 0.06 0.06 (0-0.5) K/uL Baso # (Auto) 0.03 0.02 (0-0.2) K/uL Comprehensive Metabolic Panel 02/04/19 02/05/19 Range/Units 17:57 05:21 Sodium 140 141 (136-145) mmol/L Potassium 4.3 3.8 (3.5-5.1) mmol/L Chloride 105 105 (98-107) mmol/L Carbon Dioxide 27 30 (21-32) mmol/L BUN 20 H 23 H (7-18) mg/dl Creatinine 1.00 1.02 (0.6-1.2) mg/dl Glucose 99 113 H (70-99) mg/dl Calcium 9.2 9.0 (8.5-10.1) mg/dl AST 19 (15-37) U/L ALT 17 (12-78) U/L Alkaline Phosphatase 77 (45-117) U/L Total Protein 7.2 (6.4-8.2) gm/dl Albumin 3.6 (3.4-5.0) gm/dl Intake and Output 02/04/19 02/05/19 02/05/19 22:59 06:59 14:59 Intake Total 250 / 250 Output Total 500 / 925 425 / 925 Balance -250 / -675 -425 / -675 Intake: Oral 250 / 250 Output: Urine 500 / 925 425 / 925 Other: Other Intake Source sips # Unmeasured Voids 1 Weight 110.1 kg 110.9 kg Diagnostic Findings Lower extremity venous duplex revealed no DVT in the right or left lower extremity Summary of CT report performed by radiology, no evidence of pulmonary embolism, no acute intrathoracic pathology Summary of transthoracic echocardiogram performed this morning 02/05/2019 with images reviewed independently by the undersigned: Left ventricular systolic function is borderline reduced with qualitative ejection fraction in the range of 50-55% Abnormal septal motion noted consistent with paced rhythm The basal inferior wall is moderately hypokinetic. Moderate aortic valve stenosis present (1) Chest pain Chest pain type: unspecified Qualified Code(s): R07.9 - Chest pain, unspecified
--- NOTE | 2019-02-06 14:09 | Discharge Summary ---
Date of Service February 06, 2019 Admission HPI Per Admitting Provider DICTATED BY: Cyrus Valdez MD DATE OF ADMISSION: 02/04/2019 CHIEF COMPLAINT: Chest pain. HISTORY OF PRESENT ILLNESS: This is an 83-year-old female with past medical history significant for diabetes, not on medications, hypothyroidism, hyperlipidemia, history of exertional dyspnea, history of CAD, history of idiopathic systolic CHF, left bundle branch block, status post biventricular pacemaker, chronic kidney disease stage III, hypertension, aortic stenosis, chronic lymphedema of both lower extremities, aspirin allergy. Presents with chest discomfort. The patient says since today morning 10:00 she felt flashes like zigzag lightening below the left breast on and off. It happened even at rest. Last episode was about 4:30 p.m. Since then she is doing okay. Her pacemaker was checked a couple of weeks ago. She also noted she goes to lymphedema clinic a couple of times a week and also has lymphedema machine at home and she uses it on one leg each day. The last 2 weeks, her swelling in the lower extremities has been increasing for no apparent reason. The patient has chronic exertional shortness of breath. She uses a walker at home with wheels on it. She lives alone, daughter lives next door. As per daughter, she can take care of most of her work herself. She can cook her own food. The patient recently a few days ago had episode of 1 day of diarrhea and nausea, but that has resolved now. She has chronic dizziness. No headaches. She has issues with her vision, She is going to see ophthalmology soon. Denies any sore throat. No difficulty swallowing, no cough. Appetite is okay. Currently, no nausea, no vomiting, no abdominal pain, somewhat constipated. Normal bladder movements. No blood in the urine, no burning micturition, no rash. As per daughter, her ambulation status has also slightly worsened since last few days. Principal Diagnosis Chest pain/noncardiac Discharge Data Allergies Allergy/AdvReac Type Severity Reaction Status Date / Time aspirin Allergy Intermediate Hives, Verified 02/04/19 18:33 shortness of breath ibuprofen Allergy Intermediate Rash, hives Verified 02/04/19 18:33 Penicillins Allergy Intermediate Rash, hives Verified 02/04/19 18:33 adhesive Allergy Mild Reddened Verified 02/04/19 18:33 and sore skin prednisone Allergy Unknown Confusion Verified 02/04/19 18:43 Consultations 02/04/19 19:38 ED Decision to Admit Stat 02/04/19 21:46 Consult Case Management - Discharge Planning Routine 02/05/19 08:00 Consult Cardiology Routine Ordered Studies 02/04/19 18:42 CT angio chest PE protocol Stat 02/04/19 21:46 US venous doppler [facility] Urgent Hospital Course (1) Chest pain: Presented with chest pain, Symptom has resolved Appreciate input from cardiology, no evidence of acute coronary event, no anginal symptoms Patient reports of having epigastric discomfort, Pacemaker interrogated, Does not appear that there is any diaphragmatic stimulation Per cardiology, patient symptoms possibly secondary to acid reflux/GERD Ordered for H2 barry Able to be discharged home, routine follow-up with cardiology in outpatient (2) LBBB (left bundle branch block): Chronic, no acute coronary event (3) Systolic heart failure: Volume status stable, no evidence of cardiac decompensation Continue previous meds (4) Hypothyroidism: On thyroid replacement CODE STATUS: Full code Disposition: Stable to be discharged home today Total Time Total Time Spent Total Time Spent (In Minutes): Approximate 35 minutes Total Time Includes: Examination of the Patient, Discharge Planning, Medication Reconciliation and Communication With Other Providers Discharge Plan Discharge Items Patient Disposition: Home - Self-Care Reason For Visit: CHEST PAIN Discharge Diagnosis: Chest pain Discharge Goals: Decrease discomfort, Diagnostic testing and Therapeutic intervention Activity: Resume your previous activity Non-emergency contact: Primary Care Provider Call non-emergency contact if: you have any medication questions Follow-up/Referrals: Verónica Benavides MD [Primary Care Provider] - Diet: Heart Healthy Addtl Provider Instructions: HOSPITAL FOLLOW UP WITH DR Baylee Alfredo MD ON 02/11/2019 @ 2:40 PM Provider Internal Medicine [facility] NEW MEDICATION l RANITIDINE 150 MG BY MOUTH TWICE DAILY Prescriptions: New ranitidine HCl 150 mg capsule 150 mg PO BID Qty: 60 RF: 3 Continued multivitamin Tablet 1 tab PO QAM RF: 0 spironolactone [Aldactone] 25 mg Tablet 12.5 mg PO QAM RF: 0 acetaminophen [Tylenol Arthritis Pain] 650 mg Tablet Extended Release 1,300 mg PO BID RF: 0 levothyroxine 75 mcg Tablet 75 mcg PO QAM RF: 0 potassium chloride 20 mEq Tablet,Er Particles/Crystals 20 meq PO BID RF: 0 magnesium oxide 400 mg (241.3 mg magnesium) Tablet 400 mg PO QAM RF: 0 magnesium hydroxide [Milk of Magnesia] 400 mg/5 mL Suspension 15 ml PO DAILY PRN (Reason: Constipation) RF: 0 meclizine 25 mg Tablet 25 mg PO TID PRN (Reason: Dizziness) RF: 0 bumetanide 1 mg Tablet 1 mg PO QAM RF: 0 metoprolol succinate [Toprol XL] 25 mg Tablet Extended Release 24 Hr 12.5 mg PO QAM RF: 0 sennosides-docusate sodium [Senna Laxative-Stool Softener] 8.6-50 mg Tablet 2 tab PO DAILY PRN (Reason: Constipation) RF: 0 Glucosamine Chondroitin 550-30-1 mg Capsule 1 cap PO QAM RF: 0 Stand-Alone Forms: [facility] Discharge Orders: Discharge Order (Routine); Ordered 02/05/19 Ordered By: Joselyn Singh Admission Data Admit Date/Time: 02/04/19 20:12 Attending Provider: Joselyn Singh Admit Provider: Cyrus Valdez Primary Care Provider: Verónica Benavides Other Providers: Cyrus Valdez ; Bernard uKnz ; Hermann Heredia ; Fran Boucher ; Abilio Qureshi ; Carmine Calabrese ; Chris Faulkner ; aMrcela Evans ; Marnie Chaidez Service: Telemetry Other Interventions: Discharge Summary Assessment (RN) Last Done: 02/05/19 16:36 DC Date/Time DO NOT enter until pt leaves facility: 02/05/19 17:04
--- NOTE | 2019-02-06 14:25 | Emergency Department Note ---
Entered by Tabitha Choudhary acting as a scribe for History of Present Illness General Chief complaint: Referred by Doctor Stated complaint: CHEST PAINS, SWELLING OF FEET/LEGS, WEAKNESS Time Seen by Provider: 02/04/19 17:45 Source: patient History of Present Illness Onset (ago): hour(s) 8 Location: chest Pain Consistency: + intermittent Quality: + other ("jagging") Exacerbated By: not by eating and not by movement Associated symptoms: + other (shakiness, increased leg swelling); no loss of appetite and no weakness (leg) The patient is an 83 year old female who presents to the ED with complaints of intermittent chest pain starting 8 hours ago. The patient states that all day she has had this jagging feeling in her chest. She states that it has been coming on every 2-3 hours and mostly comes on when she is sitting. She states that when Jimdo came in and saw her today, the recommended she comes here to be evaluated. The patients daughter notes that the patient has become shaky over the past 3 weeks. She states that she goes to lymphedema therapy 2 times a week while also using a home machine, but her legs are continuing to swell. The patient complains of her legs being weak. The patient denies taking Aspirin, taking Nitroglycerin, being worse with exertion, being worse with eating, loss of appetite, and ever having this before. Home Medications Home Medications Medication Instructions Recorded Confirmed Type acetaminophen [Tylenol Arthritis 1,300 mg PO BID 05/31/18 02/04/19 History Pain] bumetanide 1 mg PO QAM 05/31/18 02/04/19 History levothyroxine 75 mcg PO QAM 05/31/18 02/04/19 History magnesium hydroxide [Milk of 15 ml PO DAILY PRN 05/31/18 02/04/19 History Magnesia] magnesium oxide 400 mg PO QAM 05/31/18 02/04/19 History meclizine 25 mg PO TID PRN 05/31/18 02/04/19 History metoprolol succinate [Toprol XL] 12.5 mg PO QAM 05/31/18 02/04/19 History multivitamin 1 tab PO QAM 05/31/18 02/04/19 History potassium chloride 20 meq PO BID 05/31/18 02/04/19 History spironolactone [Aldactone] 12.5 mg PO QAM 05/31/18 02/04/19 History Glucosamine Chondroitin 1 cap PO QAM 02/04/19 02/04/19 History sennosides-docusate sodium [Senna 2 tab PO DAILY PRN 02/04/19 02/04/19 History Laxative-Stool Softener] ranitidine HCl 150 mg PO BID #60 cap 02/05/19 Rx Allergies Allergy/AdvReac Type Severity Reaction Status Date / Time aspirin Allergy Intermediate Hives, Verified 02/04/19 18:33 shortness of breath ibuprofen Allergy Intermediate Rash, hives Verified 02/04/19 18:33 Penicillins Allergy Intermediate Rash, hives Verified 02/04/19 18:33 adhesive Allergy Mild Reddened Verified 02/04/19 18:33 and sore skin prednisone Allergy Unknown Confusion Verified 02/04/19 18:43 Past Med/Surg History Medical History History of recurrent UTIs (Acute) Arthritis (Chronic) LBBB (left bundle branch block) (Chronic) Vertigo (Chronic) Systolic heart failure (Chronic) Hypothyroidism (Chronic) Head trauma (Acute) Fall (Acute) Sprain of right shoulder (Acute) Bronchitis (Acute) NICM (nonischemic cardiomyopathy) Right shoulder pain (Acute) Leaky heart valve Lymphedema Pacemaker Surgical History History of knee replacement, total (Resolved) Family History Other No pertinent family history Social History Preferred Language: Armenian Communication Ability: Effective 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 and A total of 10 systems reviewed and were otherwise negative Physical Exam Vital Signs Vital Signs - 24 hr 02/04/19 17:21 02/04/19 19:22 Temperature 36.6 C Temperature Source Oral Sepsis Recent Fever Within 48 Hours No Sepsis New/Unexplained Change in Mental Status No Sepsis Action Taken by Nursing No Action Required Pulse Rate 93 H 66 Pulse Rate [Apical] 66 Respiratory Rate 20 20 Respiratory Effort / Characteristics Short of Breath Blood Pressure 172/97 H Blood Pressure [Right Arm] 127/65 Blood Pressure Mean 122 Blood Pressure Mean [Right Arm] 85 Blood Pressure Position Sitting Pulse Oximetry 97 97 Oxygen Delivery Method Room Air Room Air GENERAL: Awake, alert, well-appearing, in no acute distress HENT: Normocephalic, atraumatic. Oropharynx unremarkable. EYES: Normal conjunctiva. Sclera non-icteric. NECK: Supple. No nuchal rigidity. FROM. No JVD. RESPIRATORY: Clear to auscultation. CARDIAC: Regular rate, normal rhythm. Extremities warm and well perfused. Pulses equal. ABDOMEN: Soft, non-distended. No tenderness to palpation. No rebound or guarding. No masses. RECTAL: Deferred. MUSCULOSKELETAL: Chest examination reveals no tenderness. The back is symmetrical on inspection without obvious abnormality. There is no CVA tendernes s to palpation. No joint edema. LOWER EXTREMITIES: Calves are equal size bilaterally and non-tender. Bilateral +2 pitting edema. No discoloration. NEURO: Normal sensorium. No sensory or motor deficits noted. SKIN: No rash or jaundice noted. Course 1746: Past medical records reviewed. The patient was evaluated in room B11A. A complete history and physical exam was performed. 1843: I reevaluated the patient and updated her on going to CT. She is agreeable to this. 1931: I reevaluated the patient and updated her on her test results. I discussed the treatment plan with her. She verbally agrees and understands. 1941: I discussed the patient's case with Dr. Alex Archibald. He will evaluate the patient for further management. Consultations Consultation #1: I discussed the patient's case with Dr. Alex Archibald. He will evaluate the patient for further management. Time: 19:42 Administered Medications Discontinued Medications Bumetanide (Bumex) 1 mg PO [facility] Stop: 03/07/19 08:59 Last Admin: 02/05/19 07:33 Dose: 1 mg Documented by: [id number] Furosemide (Lasix) 40 mg IV NOW STA Stop: 02/04/19 18:41 Last Admin: 02/04/19 19:14 Dose: 40 mg Documented by: [id number] Ioversol (Optiray 320 125ml) 120 ml IV ONCE PRN PRN Reason: Interaction Checking Stop: 02/08/19 19:31 Last Admin: 02/04/19 19:32 Dose: 1 ml Documented by: [id number] Levothyroxine Sodium (Synthroid) 75 mcg PO DAILYBB [facility] Stop: 03/07/19 06:29 Last Admin: 02/05/19 06:38 Dose: 75 mcg Documented by: [id number] Magnesium Oxide (Mag-Ox) 400 mg PO [facility] Stop: 03/07/19 08:59 Last Admin: 02/05/19 07:33 Dose: 400 mg Documented by: [id number] Metoprolol Succinate (Toprol Xl) 12.5 mg PO [facility] Stop: 03/07/19 08:59 Last Admin: 02/05/19 07:32 Dose: 12.5 mg Documented by: [id number] Multivitamins (Multivitamin Tab) 1 tab PO [facility] Stop: 03/07/19 08:59 Last Admin: 02/05/19 07:33 Dose: 1 tab Documented by: [id number] Potassium Chloride (Klor-Con M20) 20 meq PO BID [facility] Stop: 03/06/19 21:45 Last Admin: 02/05/19 07:33 Dose: 20 meq Documented by: [id number] Admin: 02/04/19 23:04 Dose: 20 meq Documented by: [id number] Spironolactone (Aldactone) 12.5 mg PO [facility] Stop: 03/07/19 08:59 Last Admin: 02/05/19 07:32 Dose: 12.5 mg Documented by: [id number] Medical Decision Making Differential Diagnosis Differential diagnosis: Etiologies such as shingles, musculoskeletal pain, pericarditis, myocarditis, cardiac ischemia, pericardial tamponade, pneumonia, pneumothorax, pleural effusion, hemothorax, pleurisy, aortic pathology, pulmonary embolism, intra- abdominal process, as well as others were considered. Medical Records Attestation: I reviewed the patient's medical records. Home Medications Current Medication List: was personally reviewed by me Laboratory Data Attestation: I reviewed the patient's lab results. Result diagrams: 02/05/19 05:21 02/05/19 05:21 Lab Results 02/04/19 02/04/19 02/04/19 Range/Units 17:57 17:57 17:58 WBC 6.21 (4.8-10.8) K/uL RBC 3.47 L (4.2-5.4) M/uL Hgb 12.3 (12.0-16.0) g/dL Hct 36.1 L (37-47) % MCV 104.0 H (80-100) fL MCH 35.4 H (25-34) pg MCHC 34.1 (32-36) g/dL RDW Std Deviation 50.4 H (36.4-46.3) fL RDW Coeff of Jon 13.5 (11.5-14.5) % Plt Count 245 (130-400) K/uL MPV 9.0 (7.4-10.4) fL Immature Gran % (Auto) 0.2 % Neut % (Auto) 53.0 % Lymph % (Auto) 35.6 % Jerome % (Auto) 9.7 % Eos % (Auto) 1.0 % Baso % (Auto) 0.5 % Immature Gran # (Auto) 0.01 (0.00-0.02) K/uL Neut # (Auto) 3.30 (1.4-6.5) K/uL Lymph # (Auto) 2.21 (1.2-3.4) K/uL Jerome # (Auto) 0.60 H (0.11-0.59) K/uL Eos # (Auto) 0.06 (0-0.5) K/uL Baso # (Auto) 0.03 (0-0.2) K/uL Sodium 140 (136-145) mmol/L Potassium 4.3 (3.5-5.1) mmol/L Chloride 105 (98-107) mmol/L Carbon Dioxide 27 (21-32) mmol/L Anion Gap 8.0 (3-11) BUN 20 H (7-18) mg/dl Creatinine 1.00 (0.6-1.2) mg/dl Est Cr Clr Drug Dosing Not Reportable Est GFR ( Amer) 60.3 Est GFR (Non-Af Amer) 52.1 BUN/Creatinine Ratio 19.7 (10-20) Glucose 99 (70-99) mg/dl Calcium 9.2 (8.5-10.1) mg/dl Total Bilirubin 0.3 (0.2-1) mg/dl AST 19 (15-37) U/L ALT 17 (12-78) U/L Alkaline Phosphatase 77 (45-117) U/L Total Creatine Kinase 49 (26-192) U/L CK-MB (CK-2) < 1.0 (0.5-3.6) ng/ml CK/CKMB % Calc TNP POC Troponin I (0-0.045) ng/ml Troponin I < 0.015 (0-0.045) ng/ml NT-Pro-B Natriuret Pep 410 (0-1800) pg/ml Total Protein 7.2 (6.4-8.2) gm/dl Albumin 3.6 (3.4-5.0) gm/dl Globulin 3.6 (2.5-4.0) gm/dl Albumin/Globulin Ratio 1.0 (0.9-2) Lipase 79 (73-393) U/L Specimen Hemolysis Urine Color Yellow Urine Appearance Clear (Clear) Urine pH 7.0 (4.5-7.5) Ur Specific [place] 1.009 (1.000-1.030) Urine Protein Negative (Negative) Urine Glucose (UA) Negative (Negative) Urine Ketones Negative (Negative) Urine Blood Negative (Negative) Urine Nitrite Negative (Negative) Urine Bilirubin Negative (Negative) Urine Urobilinogen Negative (Negative) Ur Leukocyte Esterase Negative (Negative) 02/04/19 Range/Units 19:23 WBC (4.8-10.8) K/uL RBC (4.2-5.4) M/uL Hgb (12.0-16.0) g/dL Hct (37-47) % MCV (80-100) fL MCH (25-34) pg MCHC (32-36) g/dL RDW Std Deviation (36.4-46.3) fL RDW Coeff of Jon (11.5-14.5) % Plt Count (130-400) K/uL MPV (7.4-10.4) fL Immature Gran % (Auto) % Neut % (Auto) % Lymph % (Auto) % Jerome % (Auto) % Eos % (Auto) % Baso % (Auto) % Immature Gran # (Auto) (0.00-0.02) K/uL Neut # (Auto) (1.4-6.5) K/uL Lymph # (Auto) (1.2-3.4) K/uL Jerome # (Auto) (0.11-0.59) K/uL Eos # (Auto) (0-0.5) K/uL Baso # (Auto) (0-0.2) K/uL Sodium (136-145) mmol/L Potassium (3.5-5.1) mmol/L Chloride (98-107) mmol/L Carbon Dioxide (21-32) mmol/L Anion Gap (3-11) BUN (7-18) mg/dl Creatinine (0.6-1.2) mg/dl Est Cr Clr Drug Dosing Est GFR ( Amer) Est GFR (Non-Af Amer) BUN/Creatinine Ratio (10-20) Glucose (70-99) mg/dl Calcium (8.5-10.1) mg/dl Total Bilirubin (0.2-1) mg/dl AST (15-37) U/L ALT (12-78) U/L Alkaline Phosphatase (45-117) U/L Total Creatine Kinase (26-192) U/L CK-MB (CK-2) (0.5-3.6) ng/ml CK/CKMB % Calc POC Troponin I < 0.03 (0-0.045) ng/ml Troponin I (0-0.045) ng/ml NT-Pro-B Natriuret Pep (0-1800) pg/ml Total Protein (6.4-8.2) gm/dl Albumin (3.4-5.0) gm/dl Globulin (2.5-4.0) gm/dl Albumin/Globulin Ratio (0.9-2) Lipase (73-393) U/L Specimen Hemolysis Urine Color Urine Appearance (Clear) Urine pH (4.5-7.5) Ur Specific [place] (1.000-1.030) Urine Protein (Negative) Urine Glucose (UA) (Negative) Urine Ketones (Negative) Urine Blood (Negative) Urine Nitrite (Negative) Urine Bilirubin (Negative) Urine Urobilinogen (Negative) Ur Leukocyte Esterase (Negative) Imaging Data Radiologist's Impression: Radiology results as stated below per my review and the radiologist's interpretation: XR chest 1V portable CLINICAL HISTORY: 83 years-old Female presenting with Chest Pain. TECHNIQUE: Portable upright AP view of the chest was obtained. COMPARISON: 05/31/2018. FINDINGS: Left subclavian implanted cardiac device with several leads. The lead termini are not visualized. Atherosclerosis of the aortic arch. Mildly enlarged cardiac silhouette. Mild pulmonary vascular prominence similar to prior. Positioning of the patient and patient body habitus limits evaluation of the lung bases. Allowing for this, no gross focal infiltrate. No large effusion or pneumothorax. Degenerative changes of the thoracic spine. Osteopenia suspected. IMPRESSION: 1. Positioning of the patient as well as patient body habitus limits evaluation of the lung bases. This decreases diagnostic sensitivity the exam. 2. Mild cardiomegaly with mild volume overload. No akil pulmonary edema. Electronically signed by: Shimon Foster M.D. 02/04/2019 6:[address] angio chest PE protocol CLINICAL HISTORY: 83 years-old Female presenting with atypical chest pain, clinical concern for pulmonary embolus. TECHNIQUE: Multidetector CT angiography of the chest was performed after administration of intravenous contrast. 3-D volumetric and/or maximum intensity projection (MIP) images were subsequently reconstructed for review. IV contrast: 77 mL of Optiray 320. One or more dose lowering techniques were used consistent with the principles of ALARA (as low as reasonably achievable), including automatic exposure control, mA or kV adjustment to individual patient size, and/or use of iterative reconstruction. COMPARISON: 06/26/2015. CT DOSE (mGy.cm): The estimated cumulative dose is 624.50 mGy.cm. FINDINGS: Production Statistical Clerk topogram: Left subclavian pacer with leads to the right atrium and right ventricular apex. An additional lead is in place possibly within the coronary sinus. Cholecystectomy clips. Pulmonary vasculature: The study is adequate for assessment of the pulmonary vascular tree. No filling defect within the pulmonary arteries to suggest embolus. Main pulmonary artery is not enlarged. No flattening of the interventricular septum. No intracardiac filling defect. No reflux of contrast into the hepatic veins. Remaining chest: Soft tissues: Normal thyroid and thoracic inlet. No axillary, supraclavicular, mediastinal, or hilar lymphadenopathy. Atherosclerosis of the aorta. Normal heart size. Coronary artery and aortic valve calcification. No pericardial or pleural effusion. Well-defined hypodensity in anterior left hepatic lobe likely hepatic cyst. Lungs and airways: No pneumothorax. Central airways patent. Pulmonary arteries are not significantly enlarged relative to adjacent bronchi. No interlobular septal thickening. Minimal dependent changes likely atelectasis. Musculoskeletal: Degenerative changes of the spine. Osteopenia. Degenerative changes of the glenohumeral joints. IMPRESSION: 1. No evidence of pulmonary embolus. No acute intrathoracic pathology. Electronically signed by: Shimon Foster M.D. 02/04/2019 7:45 PM ECG Data Attestation: I personally reviewed and interpreted this ECG as follows: Indication: chest pain Rate (beats per minute): 76 Rhythm: other (paced rhythm) Findings: no ST depression and no ST elevation Additional Comments: REPEAT EKG: Unchanged from prior. Blood Pressure Blood Pressure Findings: Elevated blood pressure Blood Pressure Disposition: elevated BP felt to be situational MDM Narrative This is an 83-year-old female who presents emergency department complaining of chest pain with exertion. Patient appears to be slightly volume overloaded therefore was given Lasix in the emergency department. Due to the patient having chest pain I did refer her to the hospitalist service who agreed to admit the patient. Patient and family were in agreement with the treatment plan. Impression & Plan CHF exacerbation, Chest pain Discharge Plan Visit Data *Final* Discharge Date/Time: 02/04/19 20:57 Chief Complaint: Referred by Doctor Stated Complaint: CHEST PAINS, SWELLING OF FEET/LEGS, WEAKNESS ED Provider: Smith Shay Discharge Problem: CHF exacerbation, Chest pain Patient Disposition: Admitted As Inpatient Discharge Instructions Interventions: ED Discharge Assessment Last Done: 02/04/19 20:57 Discharge Problem: CHF exacerbation Qualifiers: Heart failure type: unspecified Qualified Code(s): I50.9 - Heart failure, unspecified Chest pain Qualifiers: Chest pain type: unspecified Qualified Code(s): R07.9 - Chest pain, unspecified The scribe's documentation has been prepared under my direction and personally reviewed by me in its entirety. I confirm that the note above accurately reflects all work, treatment, procedures, and medical decision making performed by me.
== END 2019-02-05 17:04 | disposition home or self-care (01) ==
LOC: ED 17:17 → 2S 17:17

== ENCOUNTER 2019-05-11 17:38 | Inpatient (IN) ==
[2019-05-11 18:12] LABS: Appearance Urine Clear (Clear); Bacteria Urine Automated 2+ (Negative); Bilirubin Urine Negative (Negative); Blood Urine Negative (Negative); Cast Urine Automated 0 /lpf (0-5); Color Urine Yellow; Glucose Urine UA Negative (Negative); Ketones Urine Negative (Negative); Leukocyte Esterase Urine Trace (Negative); Nitrite Urine Positive (Negative); Protein Urine Negative (Negative); RBC Urine Automated 0-4 /hpf (0-4); Specific Gravity Urine 1.015 (1.000-1.030); Urobilinogen Urine Negative (Negative)
--- NOTE | 2019-05-11 18:16 | Emergency Department Note ---
Entered by Adolfo Vargas acting as a scribe for Adalberto Turner DO History of Present Illness General Chief complaint: Shortness of Breath/Dyspnea Stated complaint: RET OF FLUID, WEAKNESS, SOB Source: patient History of Present Illness Onset (ago): day(s) (few) Location: chest Pain Consistency: + other (worsening) Quality: + other (SOB) Exacerbated By: + movement Associated symptoms: + denies other symptoms (abdominal pain, black stool, bloody stool); no chest pain, no fever/chills and no nausea/vomiting The patient is an 83 y/o female who presents to the ED w/ CC of worsening shortness of breath beginning a few days ago. The patient states she was evaluated earlier today by her PCP for being short of breath. She reports she has not been keeping track of her weight and therefore does not know if she has gained weight. The patient notes she also is not sure if her legs are more swelled because she has not looked at them. She states her PCP today sent her to the ED because they thought she would benefit from a possible hospitalist admission vs out patient. The patient reports she is also having difficulty walking short distances because she becomes short of breath. She notes she had a history of SOB before and had fluid removed from around her heart, but her symptoms have not been this severe before. The patient denies shortness of br eath while laying flat, chest pain, changes to her medication, nausea, vomiting, fevers, chills, abdominal pain, black stool, bloody stool, and a history of an GA. Home Medications Home Medications Medication Instructions Recorded Confirmed Type acetaminophen [Tylenol Arthritis 1,300 mg PO BID 05/31/18 05/11/19 History Pain] bumetanide 1 mg PO QAM 05/31/18 05/11/19 History levothyroxine 75 mcg PO QAM 05/31/18 05/11/19 History magnesium oxide 400 mg PO QAM 05/31/18 05/11/19 History meclizine 25 mg PO TID PRN 05/31/18 05/11/19 History metoprolol succinate [Toprol XL] 12.5 mg PO QAM 05/31/18 05/11/19 History multivitamin 1 tab PO QAM 05/31/18 05/11/19 History potassium chloride 20 meq PO BID 05/31/18 05/11/19 History spironolactone [Aldactone] 12.5 mg PO QAM 05/31/18 05/11/19 History Glucosamine Chondroitin 1 cap PO QAM 02/04/19 05/11/19 History docusate sodium [Colace] 200 mg PO BID 05/11/19 05/11/19 History ranitidine HCl 150 mg PO HS 05/11/19 05/11/19 History sennosides [Senna Lax] 16.8 mg PO BID PRN 05/11/19 05/11/19 History Allergies Allergy/AdvReac Type Severity Reaction Status Date / Time aspirin Allergy Intermediate Hives, Verified 02/04/19 18:33 shortness of breath ibuprofen Allergy Intermediate Rash, hives Verified 02/04/19 18:33 Penicillins Allergy Intermediate Rash, hives Verified 02/04/19 18:33 adhesive Allergy Mild Reddened Verified 02/04/19 18:33 and sore skin prednisone Allergy Unknown Confusion Verified 02/04/19 18:43 Past Med/Surg History Medical History Diabetes mellitus, type II (Chronic) Pacemaker (Chronic) Lymphedema (Chronic) History of recurrent UTIs (Chronic) Arthritis (Chronic) LBBB (left bundle branch block) (Chronic) Vertigo (Chronic) Systolic heart failure (Chronic) Hypothyroidism (Chronic) NICM (nonischemic cardiomyopathy) (Chronic) Surgical History History of knee replacement, total (Chronic) History of hysterectomy (Chronic) Hx of cholecystectomy (Chronic) Family History Other Diabetes Heart disease Hypertension Social History Preferred Language: Portuguese Communication Ability: Effective 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 and A total of 10 systems reviewed and were otherwise negative Physical Exam Vital Signs Vital Signs - 24 hr 05/12/19 11:52 05/12/19 15:08 05/12/19 19:12 Temperature 36.5 C 36.4 C L 36.9 C Temperature Source Oral Oral Oral Pulse Rate [Left Finger] 64 65 70 Respiratory Rate 18 20 16 Respiratory Effort / Characteristics Respiratory Depth Respiratory Pattern Blood Pressure [Left Arm] 144/65 H 135/61 139/82 Blood Pressure Mean [Left Arm] 91 85 101 Blood Pressure Position [Left Arm] Sitting Lying Lying Pulse Oximetry 96 96 95 Oxygen Delivery Method Room Air Room Air Room Air 05/12/19 20:26 05/12/19 23:00 05/13/19 03:41 Temperature 36.5 C 36.6 C Temperature Source Oral Oral Pulse Rate [Left Finger] 63 60 Respiratory Rate 18 18 Respiratory Effort / Characteristics SOB on Exertion Respiratory Depth Normal Normal Normal Respiratory Pattern Regular Blood Pressure [Left Arm] 125/61 109/58 L Blood Pressure Mean [Left Arm] 82 75 Blood Pressure Position [Left Arm] Lying Lying Pulse Oximetry 96 96 Oxygen Delivery Method Room Air Room Air GENERAL: Patient is awake and alert. She is somewhat anxious appearing. EYES: The conjunctivae are clear. The pupils are round and reactive. EARS, NOSE, MOUTH AND THROAT: The nose is without any evidence of any deformity. Mucous membranes are moist tongue is midline NECK: The neck is nontender and supple. RESPIRATORY: Significant tachypnea was noted on physical exam. Diminished breath sounds were noted at the bases. CARDIOVASCULAR: Regular rate and rhythm noted there no murmurs rubs or gallops normal S1 normal S2 GASTROINTESTINAL: The abdomen is soft. Bowel sounds are present in all quadrants. Abdomen is nontender MUSCULOSKELETAL/EXTREMITIES: There is no evidence of gross deformity full range of motion is noted in the hips and shoulders SKIN: There is no obvious evidence of any rash. Pedal edema was noted bilaterally. NEUROLOGIC: Patient is awake alert and oriented x3. Course 1755: Past medical records reviewed. The patient was evaluated in room C09. A complete history and physical exam was performed. 2023: Upon reevaluation, I discussed findings and results with her and her daughter. The daughter states the patient cannot go home. She verbalized agreement of the treatment plan. She will be evaluate for further management and care. 2033: I spoke with Dr. Medina of the [facility]. The patient will be evaluated for further management and care. Administered Medications Acetaminophen (Tylenol) 1,300 mg PO BID [facility] Stop: 06/11/19 08:59 Last Admin: 05/12/19 19:47 Dose: 1,300 mg Documented by: [id number] Admin: 05/12/19 07:59 Dose: 1,300 mg Documented by: [id number] Bumetanide (Bumex) 1 mg PO QAM [facility] Stop: 06/11/19 08:59 Last Admin: 05/12/19 07:58 Dose: 1 mg Documented by: [id number] Docusate Sodium (Colace) 200 mg PO BID [facility] Stop: 06/11/19 08:59 Last Admin: 05/12/19 19:47 Dose: 200 mg Documented by: [id number] Admin: 05/12/19 07:58 Dose: 200 mg Documented by: [id number] Heparin Sodium (Porcine) (Heparin Sodium (Porcine)) 5,000 units SQ Q8 [facility] Stop: 06/10/19 22:24 Last Admin: 05/12/19 19:48 Dose: 5,000 units Documented by: [id number] Cosigned by: [id number] Admin: 05/12/19 13:35 Dose: 5,000 units Documented by: [id number] Cosigned by: [id number] Admin: 05/12/19 05:51 Dose: 5,000 units Documented by: [id number] Cosigned by: [id number] Admin: 05/11/19 23:05 Dose: 5,000 units Documented by: [id number] Cosigned by: [id number] Sodium Chloride (Nss 1000ml) 1,000 mls @ 110 mls/hr IV .Q9H6M [facility] Stop: 06/12/19 00:00 Last Admin: 05/13/19 01:03 Dose: 110 mls/hr Documented by: [id number] Levothyroxine Sodium (Synthroid) 75 mcg PO DAILYBB [facility] Stop: 06/11/19 06:29 Last Admin: 05/13/19 05:54 Dose: 75 mcg Documented by: [id number] Admin: 05/12/19 05:51 Dose: 75 mcg Documented by: [id number] [facility] [place] [facility]: 06/11/19 08:59 Last Admin: 05/12/19 07:59 Dose: 400 mg Documented by: [id number] Metoprolol Succ[facility] ([facility] Xl) [facility] [place] Stop: 06/11/19 08:59 Last Admin: 05/12/19 07:57 Dose: 12.5 mg Documented by: [id number] Multivitamins (Multivitamin Tab) 1 tab PO QAM [facility] Stop: 06/11/19 08:59 Last Admin: 05/12/19 07:57 Dose: 1 tab Documented by: [id number] Potassium Chloride (Klor-Con M20) 20 meq PO BID [facility] Stop: 06/11/19 08:59 Last Admin: 05/12/19 07:57 Dose: 20 meq Documented by: [id number] Ranitidine HCl (Zantac) 150 mg PO HS [facility] Stop: 06/11/19 20:59 Last Admin: 05/12/19 19:47 Dose: 150 mg Documented by: [id number] Spironolactone (Aldactone) 12.5 mg PO QAM [facility] Stop: 06/11/19 08:59 Last Admin: 05/12/19 07:58 Dose: 12.5 mg Documented by: [id number] Discontinued Medications Sodium Chloride (Nss 1000ml) 1,000 mls @ 110 mls/hr IV .Q9H6M [facility] Stop: 06/11/19 11:29 Last Admin: 05/12/19 13:43 Dose: Not Given Documented by: [id number] Ioversol (Optiray 320 125ml) 119 ml IV ONCE PRN PRN Reason: Interaction Checking Stop: 05/15/19 20:00 Last Admin: 05/11/19 20:02 Dose: 119 ml Documented by: [id number] Medical Decision Making Differential Diagnosis Differential diagnoses includes but is not limited to pneumonia, bronchitis, PARTS FACILITATOR D/Asthma exacerbation, pneumothorax, pulmonary embolism, congestive heart failure, acute coronary syndrome Medical Records Attestation: I reviewed the patient's medical records. Home Medications Current Medication List: was personally reviewed by me Laboratory Data Attestation: I reviewed the patient's lab results. Result diagrams: 05/13/19 05:54 05/13/19 05:54 Lab Results 05/11/19 05/11/19 05/11/19 Range/Units 17:50 18:19 18:19 WBC 5.36 (4.8-10.8) K/uL RBC 3.83 L (4.2-5.4) M/uL Hgb 13.6 (12.0-16.0) g/dL Hct 40.2 (37-47) % MCV 105.0 H (80-100) fL MCH 35.5 H (25-34) pg MCHC 33.8 (32-36) g/dL RDW Std Deviation 51.2 H (36.4-46.3) fL RDW Coeff of Jon 13.5 (11.5-14.5) % Plt Count 269 (130-400) K/uL MPV 9.0 (7.4-10.4) fL Immature Gran % (Auto) 0.2 % Neut % (Auto) 48.5 % Lymph % (Auto) 40.3 % [place] % (Auto) 9.1 % Eos % (Auto) 1.3 % Baso % (Auto) 0.6 % Immature Gran # (Auto) 0.01 (0.00-0.02) K/uL Neut # (Auto) 2.60 (1.4-6.5) K/uL Lymph # (Auto) 2.16 (1.2-3.4) K/uL [place] # (Auto) 0.49 (0.11-0.59) K/uL Eos # (Auto) 0.07 (0-0.5) K/uL Baso # (Auto) 0.03 (0-0.2) K/uL PT 10.7 (9.0-12.0) Seconds INR 1.0 (0.9-1.1) APTT 22.1 (21.0-31.0) Seconds PTT Ratio 0.8 Sodium (136-145) mmol/L Potassium (3.5-5.1) mmol/L Chloride (98-107) mmol/L Carbon Dioxide (21-32) mmol/L Anion Gap (3-11) BUN (7-18) mg/dl Creatinine (0.6-1.2) mg/dl Est Cr Clr Drug Dosing Est GFR ( Amer) Est GFR (Non-Af Amer) BUN/Creatinine Ratio (10-20) Glucose (70-99) mg/dl Calcium (8.5-10.1) mg/dl Magnesium (1.8-2.4) mg/dl Total Bilirubin (0.2-1) mg/dl AST (15-37) U/L ALT (12-78) U/L Alkaline Phosphatase (45-117) U/L Troponin I (0-0.045) ng/ml NT-Pro-B Natriuret Pep (0-1800) pg/ml Total Protein (6.4-8.2) gm/dl Albumin (3.4-5.0) gm/dl Globulin (2.5-4.0) gm/dl Albumin/Globulin Ratio (0.9-2) Urine Color Yellow Urine Appearance Clear (Clear) Urine pH 5.0 (4.5-7.5) Ur Specific [place] 1.015 (1.000-1.030) Urine Protein Negative (Negative) Urine Glucose (UA) Negative (Negative) Urine Ketones Negative (Negative) Urine Blood Negative (Negative) Urine Nitrite Positive A (Negative) Urine Bilirubin Negative (Negative) Urine Urobilinogen Negative (Negative) Ur Leukocyte Esterase Trace H (Negative) Urine WBC (Auto) 1-5 (0-5) /hpf Urine RBC (Auto) 0-4 (0-4) /hpf U Hyaline Cast (Auto) 0 (0-5) /lpf U Epithel Cells (Auto) 10-20 H (0-5) /lpf Urine Bacteria (Auto) 2+ H (Negative) 05/11/19 05/12/19 05/12/19 Range/Units 18:19 05:34 05:34 WBC 5.02 (4.8-10.8) K/uL RBC 3.26 L (4.2-5.4) M/uL Hgb 11.3 L (12.0-16.0) g/dL Hct 34.4 L (37-47) % MCV 105.5 H (80-100) fL MCH 34.7 H (25-34) pg MCHC 32.8 (32-36) g/dL RDW Std Deviation 52.2 H (36.4-46.3) fL RDW Coeff of Jon 13.5 (11.5-14.5) % Plt Count 242 (130-400) K/uL MPV 9.2 (7.4-10.4) fL Immature Gran % (Auto) % Neut % (Auto) % Lymph % (Auto) % [place] % (Auto) % Eos % (Auto) % Baso % (Auto) % Immature Gran # (Auto) (0.00-0.02) K/uL Neut # (Auto) (1.4-6.5) K/uL Lymph # (Auto) (1.2-3.4) K/uL G[place] # (Auto) (0.11-0.59) K/uL Eos # (Auto) (0-0.5) K/uL Baso # (Auto) (0-0.2) K/uL PT (9.0-12.0) Seconds INR (0.9-1.1) APTT (21.0-31.0) Seconds PTT Ratio Sodium 140 142 (136-145) mmol/L Potassium 3.8 4.1 (3.5-5.1) mmol/L Chloride 105 107 (98-107) mmol/L Carbon Dioxide 27 29 (21-32) mmol/L Anion Gap 8.0 6.0 (3-11) BUN 20 H 19 H (7-18) mg/dl Creatinine 1.17 0.91 (0.6-1.2) mg/dl Est Cr Clr Drug Dosing Not Reportable 53.0 Est GFR ( Amer) 49.9 67.6 Est GFR (Non-Af Amer) 43.1 58.3 BUN/Creatinine Ratio 17.0 20.4 H (10-20) Glucose 125 H 99 (70-99) mg/dl Calcium 9.5 8.7 (8.5-10.1) mg/dl Magnesium 1.8 (1.8-2.4) mg/dl Total Bilirubin 0.3 (0.2-1) mg/dl AST 16 (15-37) U/L ALT 18 (12-78) U/L Alkaline Phosphatase 98 (45-117) U/L Troponin I < 0.015 (0-0.045) ng/ml NT-Pro-B Natriuret Pep 583 (0-1800) pg/ml Total Protein 7.8 (6.4-8.2) gm/dl Albumin 4.0 (3.4-5.0) gm/dl Globulin 3.8 (2.5-4.0) gm/dl Albumin/Globulin Ratio 1.0 (0.9-2) Urine Color Urine Appearance (Clear) Urine pH (4.5-7.5) Ur Specific [place] (1.000-1.030) Urine Protein (Negative) Urine Glucose (UA) (Negative) Urine Ketones (Negative) Urine Blood (Negative) Urine Nitrite (Negative) Urine Bilirubin (Negative) Urine Urobilinogen (Negative) Ur Leukocyte Esterase (Negative) Urine WBC (Auto) (0-5) /hpf Urine RBC (Auto) (0-4) /hpf U Hyaline Cast (Auto) (0-5) /lpf U Epithel Cells (Auto) (0-5) /lpf Urine Bacteria (Auto) (Negative) 05/12/19 05/13/19 05/13/19 Range/Units 05:34 05:54 05:54 WBC 5.54 (4.8-10.8) K/uL RBC 3.15 L (4.2-5.4) M/uL Hgb 11.1 L (12.0-16.0) g/dL Hct 33.0 L (37-47) % MCV 104.8 H (80-100) fL MCH 35.2 H (25-34) pg MCHC 33.6 (32-36) g/dL RDW Std Deviation 50.8 H (36.4-46.3) fL RDW Coeff of Jon 13.5 (11.5-14.5) % Plt Count 224 (130-400) K/uL MPV 9.0 (7.4-10.4) fL Immature Gran % (Auto) % Neut % (Auto) % Lymph % (Auto) % [place] % (Auto) % Eos % (Auto) % Baso % (Auto) % Immature Gran # (Auto) (0.00-0.02) K/uL Neut # (Auto) (1.4-6.5) K/uL Lymph # (Auto) (1.2-3.4) K/uL [place] # (Auto) (0.11-0.59) K/uL Eos # (Auto) (0-0.5) K/uL Baso # (Auto) (0-0.2) K/uL PT (9.0-12.0) Seconds INR (0.9-1.1) APTT (21.0-31.0) Seconds PTT Ratio Sodium 140 (136-145) mmol/L Potassium 3.7 (3.5-5.1) mmol/L Chloride 108 H (98-107) mmol/L Carbon Dioxide 28 (21-32) mmol/L Anion Gap 4.0 (3-11) BUN 21 H (7-18) mg/dl Creatinine 0.86 (0.6-1.2) mg/dl Est Cr Clr Drug Dosing 56.0 Est GFR ( Amer) 72.4 Est GFR (Non-Af Amer) 62.5 BUN/Creatinine Ratio 24.8 H (10-20) Glucose 90 (70-99) mg/dl Calcium 8.2 L (8.5-10.1) mg/dl Magnesium (1.8-2.4) mg/dl Total Bilirubin (0.2-1) mg/dl AST (15-37) U/L ALT (12-78) U/L Alkaline Phosphatase (45-117) U/L Troponin I < 0.015 (0-0.045) ng/ml NT-Pro-B Natriuret Pep (0-1800) pg/ml Total Protein (6.4-8.2) gm/dl Albumin (3.4-5.0) gm/dl Globulin (2.5-4.0) gm/dl Albumin/Globulin Ratio (0.9-2) Urine Color Urine Appearance (Clear) Urine pH (4.5-7.5) Ur Specific [place] (1.000-1.030) Urine Protein (Negative) Urine Glucose (UA) (Negative) Urine Ketones (Negative) Urine Blood (Negative) Urine Nitrite (Negative) Urine Bilirubin (Negative) Urine Urobilinogen (Negative) Ur Leukocyte Esterase (Negative) Urine WBC (Auto) (0-5) /hpf Urine RBC (Auto) (0-4) /hpf U Hyaline Cast (Auto) (0-5) /lpf U Epithel Cells (Auto) (0-5) /lpf Urine Bacteria (Auto) (Negative) 05/13/19 Range/Units 05:54 WBC (4.8-10.8) K/uL RBC (4.2-5.4) M/uL Hgb (12.0-16.0) g/dL Hct (37-47) % MCV (80-100) fL MCH (25-34) pg MCHC (32-36) g/dL RDW Std Deviation (36.4-46.3) fL RDW Coeff of Jon (11.5-14.5) % Plt Count (130-400) K/uL MPV (7.4-10.4) fL Immature Gran % (Auto) % Neut % (Auto) % Lymph % (Auto) % [place] % (Auto) % Eos % (Auto) % Baso % (Auto) % Immature Gran # (Auto) (0.00-0.02) K/uL Neut # (Auto) (1.4-6.5) K/uL Lymph # (Auto) (1.2-3.4) K/uL [place] # (Auto) (0.11-0.59) K/uL Eos # (Auto) (0-0.5) K/uL Baso # (Auto) (0-0.2) K/uL PT (9.0-12.0) Seconds INR (0.9-1.1) APTT (21.0-31.0) Seconds PTT Ratio Sodium (136-145) mmol/L Potassium (3.5-5.1) mmol/L Chloride (98-107) mmol/L Carbon Dioxide (21-32) mmol/L Anion Gap (3-11) BUN (7-18) mg/dl Creatinine (0.6-1.2) mg/dl Est Cr Clr Drug Dosing Est GFR ( Amer) Est GFR (Non-Af Amer) BUN/Creatinine Ratio (10-20) Glucose (70-99) mg/dl Calcium (8.5-10.1) mg/dl Magnesium 1.7 L (1.8-2.4) mg/dl Total Bilirubin (0.2-1) mg/dl AST (15-37) U/L ALT (12-78) U/L Alkaline Phosphatase (45-117) U/L Troponin I (0-0.045) ng/ml NT-Pro-B Natriuret Pep (0-1800) pg/ml Total Protein (6.4-8.2) gm/dl Albumin (3.4-5.0) gm/dl Globulin (2.5-4.0) gm/dl Albumin/Globulin Ratio (0.9-2) Urine Color Urine Appearance (Clear) Urine pH (4.5-7.5) Ur Specific [place] (1.000-1.030) Urine Protein (Negative) Urine Glucose (UA) (Negative) Urine Ketones (Negative) Urine Blood (Negative) Urine Nitrite (Negative) Urine Bilirubin (Negative) Urine Urobilinogen (Negative) Ur Leukocyte Esterase (Negative) Urine WBC (Auto) (0-5) /hpf Urine RBC (Auto) (0-4) /hpf U Hyaline Cast (Auto) (0-5) /lpf U Epithel Cells (Auto) (0-5) /lpf Urine Bacteria (Auto) (Negative) Imaging Data Radiologist's Impression: Radiology results as stated below per my review and the radiologist's interpretation: CT angio chest PE protocol CT DOSE: 710.17 mGy.cm HISTORY: Dyspnea PE TECHNIQUE: Multiaxial CT images of the chest were performed following the intravenous administration of contrast to evaluate the pulmonary arteries. Maximal intensity projection images were also obtained. A dose lowering technique was utilized adhering to the principles of ALARA. COMPARISON STUDY: None. FINDINGS: There is a normal caliber thoracic aorta with no evidence for d issection. There is no evidence for pulmonary embolus. No pleural effusions. No pneumothorax. The liver and spleen are unremarkable. No mediastinal or hilar lymphadenopathy. The central airways are patent. The lungs are clear. IMPRESSION: No evidence for pulmonary embolus. Lungs are clear. The above report was generated using voice recognition software. It may contain grammatical, syntax or spelling errors. Electronically signed by: Chris Bautista M.D. 05/11/2019 8:18 PM XR chest 1V portable CLINICAL HISTORY: Dyspnea chest pain COMPARISON STUDY: 02/04/2019 FINDINGS: Mild stable grade megaly. Permanent bipolar cardiac pacemaker. Lungs are clear. No focal infiltrative change. IMPRESSION: Chronic and postoperative change. No acute process. The above report was generated using voice recognition software. It may contain grammatical, syntax or spelling errors. Electronically signed by: Chris Bautista M.D. 05/11/2019 6:14 PM ECG Data Attestation: I personally reviewed and interpreted this ECG as follows: Indication: SOB/dyspnea Rate (beats per minute): 66 Rhythm: other (Dual chamberred pacer with ventricular firing, no wales beats.) Findings: no nonspecific-ST abn Comparison ECG Date: from (02/05/19) Change: no significant change Blood Pressure Blood Pressure Findings: Elevated blood pressure Blood Pressure Disposition: further management by hospitalist ABHIJEET Narrative The patient is an 83-year-old female who presented to the emergency department for evaluation of shortness of breath. 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 The patient was felt to be in volume overload. The patient's breath sounds were not overwhelmingly consistent with volume overload. Her chest x-ray did not appear to be consistent with pulmonary edema either. For this reason further radiographic studies were obtained including a CTA of the chest but no definite source for the patient's shortness of breath was found. She was very tachypneic upon any exertion but was not hypoxic. I discussed the patient's laboratory and radiographic studies with her and her family member. I also discussed her case with the on-call [facility] group as the patient was sent in specifically for inpatient management. The patient's family member felt the patient would not do well with outpatient management as she lives alone and her symptoms have become much worse over the last few days. Impression & Plan Dyspnea on exertion, Tachypnea Discharge Plan Visit Data *Final* Discharge Date/Time: 05/11/19 21:58 Chief Complaint: Shortness of Breath/Dyspnea Stated Complaint: RET OF FLUID, WEAKNESS, SOB ED Provider: Adalberto Turner Discharge Problem: Dyspnea on exertion, Tachypnea Patient Disposition: Admitted As Inpatient Discharge Instructions Interventions: ED Discharge Assessment Last Done: 05/11/19 21:58 The scribe's documentation has been prepared under my direction and personally reviewed by me in its entirety. I confirm that the note above accurately reflects all work, treatment, procedures, and medical decision making performed by me.
[2019-05-11 18:29] LABS: Basophils # (auto) 0.03 K/uL (0-0.2); Basophils % (auto) 0.6 %; Eosinophils # (auto) 0.07 K/uL (0-0.5); Eosinophils % (auto) 1.3 %; Hematocrit (blood only) 40.2 % (37-47); Hemoglobin 13.6 g/dL (12.0-16.0); Immature Granulocytes # (auto) 0.01 K/uL (0.00-0.02); Immature Granulocytes % (auto) 0.2 %; Lymphocytes # (auto) 2.16 K/uL (1.2-3.4); Lymphocytes % (auto) 40.3 %; Mean Corpuscular Hemoglobin 35.5 pg (25-34); Mean Corpuscular Hgb Conc 33.8 g/dL (32-36); Monocytes # (auto) 0.49 K/uL (0.11-0.59); Monocytes % (auto) 9.1 %; Neutrophils % (auto) 48.5 %; Platelet Count 269 K/uL (130-400); RDW Coefficient of Variation 13.5 % (11.5-14.5); RDW Standard Deviation 51.2 fL (36.4-46.3); Red Blood Count 3.83 M/uL (4.2-5.4); White Blood Count 5.36 K/uL (4.8-10.8)
[2019-05-11 18:40] LABS: Partial Thromboplastin Ratio 0.8; Partial Thromboplastin Time 22.1 Seconds (21.0-31.0); Prothrombin Time 10.7 Seconds (9.0-12.0)
[2019-05-11 18:46] LABS: Alanine Aminotransferase 18 U/L (12-78); Aspartate Aminotransferase 16 U/L (15-37); Blood Urea Nitrogen 20 mg/dl (7-18); Calcium 9.5 mg/dl (8.5-10.1); Carbon Dioxide 27 mmol/L (21-32); Chloride 105 mmol/L (98-107); Est GFR (African American) 49.9; Est GFR (Non-African American) 43.1; Glucose 125 mg/dl (70-99); Magnesium 1.8 mg/dl (1.8-2.4); Potassium 3.8 mmol/L (3.5-5.1); Sodium 140 mmol/L (136-145)
[2019-05-11 18:51] LABS: Alkaline Phosphatase 98 U/L (45-117); Bilirubin,Total 0.3 mg/dl (0.2-1); Globulin 3.8 gm/dl (2.5-4.0); NT Pro B Type Natriuretic Pept 583 pg/ml (0-1800); Total Protein 7.8 gm/dl (6.4-8.2); Troponin I < 0.015 ng/ml (0-0.045)
[2019-05-11] MEDS ORDERED: OPTIRAY 320 125ml IV PRN (20:01)
--- NOTE | 2019-05-11 20:20 | CT Scan Report ---
CT angio chest PE protocol CT DOSE: 710.17 mGy.cm HISTORY: Dyspnea PE TECHNIQUE: Multiaxial CT images of the chest were performed following the intravenous administration of contrast to evaluate the pulmonary arteries. Maximal intensity projection images were also obtaine d. A dose lowering technique was utilized adhering to the principles of ALARA. COMPARISON STUDY: None. FINDINGS: There is a normal caliber thoracic aorta with no evidence for dissection. There is no evide nce for pulmonary embolus. No pleural effusions. No pneumothorax. The liver and spleen are unremarkab le. No mediastinal or hilar lymphadenopathy. The central airways are patent. The lungs are clear. IMPRESSION: No evidence for pulmonary embolus. Lungs are clear. The above report was generated using voice recognition software. It may contain grammatical, syntax or spelling errors. Electronically signed by: Chris Bautista M.D. 05/11/2019 8:18 PM
--- NOTE | 2019-05-11 21:23 | History & Physical Report ---
Date of Service May 11, 2019 Assessment & Plan (1) Dyspnea on exertion: This is an 83-year-old female with a PMH of CAD, DM II, LBBB, systolic heart failure, CKD III, lymphedema and other medical problems listed below who presents with worsening dyspnea on exertion x1 week. -In setting of CAD, moderate aortic stenosis. No known lung pathology -Afebrile and hemodynamically stable. Troponin normal. BNP normal. No leukocytosis or electrolyte abnormalities on lab work -EKG with paced rhythm. Chest x-ray without any acute cardiopulmonary abnormalities. Chest CTA without evidence of pulmonary embolus -TTE from November 2018 with EF 45-49%, moderate aortic valve stenosis. Compared to previous echo, aortic valve systolic gradients have increased -Monitor on telemetry, trend troponin, continue oral diuretics, repeat 2D echo -Routine cardio consult (2) Systolic heart failure: (3) NICM (nonischemic cardiomyopathy): Appears euvolemic on exam and CXR, CTA chest -BNP normal -Continue oral diuretics, monitor volume status closely (4) Hypothyroidism: Continue levothyroxine (5) Diabetes mellitus, type II: A1c of 6.1 in February 2019 -Not on diabetic medications -Carb consistent diet DVT Ppx: SQ heparin Code status: FULL per discussion with patient PCP: Kennedy Dispo: Observation telemetry. Discharge planning ordered. Patient seen in collaboration with Dr. Rogel. Please see addendum. History of Present Illness Chief Complaint: Dyspnea on exertion Primary Care Provider: Verónica Benavides MD This is an 83-year-old female with a PMH of CAD, DM II, LBBB, systolic heart failure, CKD III, lymphedema and other medical problems listed below who presents with worsening dyspnea on exertion x1 week. Patient's family noted that she has become much more short of breath in the past few days, hardly able to make it the 3 steps from chair to bed without becoming dyspneic. Has also been paler and more fatigued than usual. No chest pain. Denies any fever, chills, lightheadedness, visual changes, palpitations, wheezing, nausea, vomiting, abdominal pain, dysuria or diarrhea. Has chronic constipation but has been moving bowels regularly with stool softeners. Has chronic lymphedema that she notes is slightly worse than usual. Also feels like she has more weight in her abdomen than usual. Was seen in cardiology clinic today and was sent to ED for further evaluation and concern for volume overload versus worsening aortic stenosis. In ED, was found to be afebrile and hemodynamically stable. No leukocytosis or electrolyte abnormalities on lab work. Troponin normal. Chest x-ray without any acute cardiopulmonary abnormalities. Chest CTA without evidence of pulmonary embolus. Allergies Allergy/AdvReac Type Severity Reaction Status Date / Time aspirin Allergy Intermediate Hives, Verified 02/04/19 18:33 shortness of breath ibuprofen Allergy Intermediate Rash, hives Verified 02/04/19 18:33 Penicillins Allergy Intermediate Rash, hives Verified 02/04/19 18:33 adhesive Allergy Mild Reddened Verified 02/04/19 18:33 and sore skin prednisone Allergy Unknown Confusion Verified 02/04/19 18:43 Home Medications Home Medications Medication Instructions Recorded Confirmed Type acetaminophen [Tylenol Arthritis 1,300 mg PO BID 05/31/18 05/11/19 History Pain] bumetanide 1 mg PO QAM 05/31/18 05/11/19 History levothyroxine 75 mcg PO QAM 05/31/18 05/11/19 History magnesium oxide 400 mg PO QAM 05/31/18 05/11/19 History meclizine 25 mg PO TID PRN 05/31/18 05/11/19 History metoprolol succinate [Toprol XL] 12.5 mg PO QAM 05/31/18 05/11/19 History multivitamin 1 tab PO QAM 05/31/18 05/11/19 History potassium chloride 20 meq PO BID 05/31/18 05/11/19 History spironolactone [Aldactone] 12.5 mg PO QAM 05/31/18 05/11/19 History Glucosamine Chondroitin 1 cap PO QAM 02/04/19 05/11/19 History docusate sodium [Colace] 200 mg PO BID 05/11/19 05/11/19 History ranitidine HCl 150 mg PO HS 05/11/19 05/11/19 History sennosides [Senna Lax] 16.8 mg PO BID PRN 05/11/19 05/11/19 History Past Med/Surg History Medical History Diabetes mellitus, type II (Chronic) Pacemaker (Chronic) Lymphedema (Chronic) History of recurrent UTIs (Chronic) Arthritis (Chronic) LBBB (left bundle branch block) (Chronic) Vertigo (Chronic) Systolic heart failure (Chronic) Hypothyroidism (Chronic) NICM (nonischemic cardiomyopathy) (Chronic) Surgical History History of knee replacement, total (Chronic) History of hysterectomy (Chronic) Hx of cholecystectomy (Chronic) Family History Other Diabetes Heart disease Hypertension Social History Preferred Language: Cymraes Communication Ability: Effective 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 Physical Exam Physical Exam: General Appearance: WD/WN, vitals as above, NAD, conversing easily, morbidly obese Head: normocephalic, atraumatic Eyes: normal inspection, PERRL, conjunctivae normal, anicteric sclerae ENT: external ear and nose normal, oropharynx normal Neck: trachea midline, no thyromegaly normal visual inspection Respiratory: normal respiratory effort, lungs clear to auscultation, no wheeze, rales, rhonchi. Normal insp/exp effort, no accessory muscle use Cardiovascular: regular rate, rhythm, III/ systolic murmur, normal peripheral pulses. Vessels: no JVD or carotid bruit Chest: normal inspection of chest Abdomen/GI: normal bowel sounds, soft, nontender, no hepatosplenomegaly Extremities/Musculoskelatal: no cyanosis or clubbing, BLE edema consistent with lymphedema, extremities motor strength 5/5 Neurologic: PERRL, EOMI, accommodation nl, no face palsy, no dysarthria CN's II-XI intact bilaterally and moves all extremities Psychiatric: A+Ox3, euthymic affect Skin: no rashes, + pale, warm/dry Results & Data Vital Signs (Past 12 Hours) Vital Signs Pulse Pulse Resp BP BP Pulse Ox 05/11/19 20:15 62 18 152/79 H 96 05/11/19 18:28 62 20 100 05/11/19 17:42 69 22 206/112 H 99 Laboratory Results Short CBC 05/11/19 05/11/19 05/11/19 Range/Units 17:50 18:19 18:19 WBC 5.36 (4.8-10.8) K/uL RBC 3.83 L (4.2-5.4) M/uL Hgb 13.6 (12.0-16.0) g/dL Hct 40.2 (37-47) % MCV 105.0 H (80-100) fL MCH 35.5 H (25-34) pg MCHC 33.8 (32-36) g/dL RDW Std Deviation 51.2 H (36.4-46.3) fL RDW Coeff of Jon 13.5 (11.5-14.5) % Plt Count 269 (130-400) K/uL MPV 9.0 (7.4-10.4) fL Immature Gran % (Auto) 0.2 % Neut % (Auto) 48.5 % Lymph % (Auto) 40.3 % [place] % (Auto) 9.1 % Eos % (Auto) 1.3 % Baso % (Auto) 0.6 % Immature Gran # (Auto) 0.01 (0.00-0.02) K/uL Neut # (Auto) 2.60 (1.4-6.5) K/uL Lymph # (Auto) 2.16 (1.2-3.4) K/uL [place] # (Auto) 0.49 (0.11-0.59) K/uL Eos # (Auto) 0.07 (0-0.5) K/uL Baso # (Auto) 0.03 (0-0.2) K/uL PT 10.7 (9.0-12.0) Seconds INR 1.0 (0.9-1.1) APTT 22.1 (21.0-31.0) Seconds PTT Ratio 0.8 Sodium (136-145) mmol/L Potassium (3.5-5.1) mmol/L Chloride (98-107) mmol/L Carbon Dioxide (21-32) mmol/L Anion Gap (3-11) BUN (7-18) mg/dl Creatinine (0.6-1.2) mg/dl Est Cr Clr Drug Dosing Est GFR ( Amer) Est GFR (Non-Af Amer) BUN/Creatinine Ratio (10-20) Glucose (70-99) mg/dl Calcium (8.5-10.1) mg/dl Magnesium (1.8-2.4) mg/dl Total Bilirubin (0.2-1) mg/dl AST (15-37) U/L ALT (12-78) U/L Alkaline Phosphatase (45-117) U/L Troponin I (0-0.045) ng/ml NT-Pro-B Natriuret Pep (0-1800) pg/ml Total Protein (6.4-8.2) gm/dl Albumin (3.4-5.0) gm/dl Globulin (2.5-4.0) gm/dl Albumin/Globulin Ratio (0.9-2) Urine Color Yellow Urine Appearance Clear (Clear) Urine pH 5.0 (4.5-7.5) Ur Specific [place] 1.015 (1.000-1.030) Urine Protein Negative (Negative) Urine Glucose (UA) Negative (Negative) Urine Ketones Negative (Negative) Urine Blood Negative (Negative) Urine Nitrite Positive A (Negative) Urine Bilirubin Negative (Negative) Urine Urobilinogen Negative (Negative) Ur Leukocyte Esterase Trace H (Negative) Urine WBC (Auto) 1-5 (0-5) /hpf Urine RBC (Auto) 0-4 (0-4) /hpf U Hyaline Cast (Auto) 0 (0-5) /lpf U Epithel Cells (Auto) 10-20 H (0-5) /lpf Urine Bacteria (Auto) 2+ H (Negative) 05/11/19 Range/Units 18:19 WBC (4.8-10.8) K/uL RBC (4.2-5.4) M/uL Hgb (12.0-16.0) g/dL Hct (37-47) % MCV (80-100) fL MCH (25-34) pg MCHC (32-36) g/dL RDW Std Deviation (36.4-46.3) fL RDW Coeff of Jon (11.5-14.5) % Plt Count (130-400) K/uL MPV (7.4-10.4) fL Immature Gran % (Auto) % Neut % (Auto) % Lymph % (Auto) % [place] % (Auto) % Eos % (Auto) % Baso % (Auto) % Immature Gran # (Auto) (0.00-0.02) K/uL Neut # (Auto) (1.4-6.5) K/uL Lymph # (Auto) (1.2-3.4) K/uL [place] # (Auto) (0.11-0.59) K/uL Eos # (Auto) (0-0.5) K/uL Baso # (Auto) (0-0.2) K/uL PT (9.0-12.0) Seconds INR (0.9-1.1) APTT (21.0-31.0) Seconds PTT Ratio Sodium 140 (136-145) mmol/L Potassium 3.8 (3.5-5.1) mmol/L Chloride 105 (98-107) mmol/L Carbon Dioxide 27 (21-32) mmol/L Anion Gap 8.0 (3-11) BUN 20 H (7-18) mg/dl Creatinine 1.17 (0.6-1.2) mg/dl Est Cr Clr Drug Dosing Not Reportable Est GFR ( Amer) 49.9 Est GFR (Non-Af Amer) 43.1 BUN/Creatinine Ratio 17.0 (10-20) Glucose 125 H (70-99) mg/dl Calcium 9.5 (8.5-10.1) mg/dl Magnesium 1.8 (1.8-2.4) mg/dl Total Bilirubin 0.3 (0.2-1) mg/dl AST 16 (15-37) U/L ALT 18 (12-78) U/L Alkaline Phosphatase 98 (45-117) U/L Troponin I < 0.015 (0-0.045) ng/ml NT-Pro-B Natriuret Pep 583 (0-1800) pg/ml Total Protein 7.8 (6.4-8.2) gm/dl Albumin 4.0 (3.4-5.0) gm/dl Globulin 3.8 (2.5-4.0) gm/dl Albumin/Globulin Ratio 1.0 (0.9-2) Urine Color Urine Appearance (Clear) Urine pH (4.5-7.5) Ur Specific [place] (1.000-1.030) Urine Protein (Negative) Urine Glucose (UA) (Negative) Urine Ketones (Negative) Urine Blood (Negative) Urine Nitrite (Negative) Urine Bilirubin (Negative) Urine Urobilinogen (Negative) Ur Leukocyte Esterase (Negative) Urine WBC (Auto) (0-5) /hpf Urine RBC (Auto) (0-4) /hpf U Hyaline Cast (Auto) (0-5) /lpf U Epithel Cells (Auto) (0-5) /lpf Urine Bacteria (Auto) (Negative) BMP 05/11/19 18:19 Sodium 140 Potassium 3.8 Chloride 105 Carbon Dioxide 27 BUN 20 H Creatinine 1.17 Glucose 125 H Calcium 9.5 Cardiac Enzymes 05/11/19 Range/Units 18:19 Troponin I < 0.015 (0-0.045) ng/ml Liver Function 05/11/19 Range/Units 18:19 Total Bilirubin 0.3 (0.2-1) mg/dl AST 16 (15-37) U/L ALT 18 (12-78) U/L Alkaline Phosphatase 98 (45-117) U/L Albumin 4.0 (3.4-5.0) gm/dl Urine 05/11/19 Range/Units 17:50 Urine Color Yellow Urine Appearance Clear (Clear) Urine pH 5.0 (4.5-7.5) Ur Specific [place] 1.015 (1.000-1.030) Urine Protein Negative (Negative) Urine Glucose (UA) Negative (Negative) Diagnostic Findings CXR: IMPRESSION: Chronic and postoperative change. No acute process. CTA chest: IMPRESSION: No evidence for pulmonary embolus. Lungs are clear. ECG Findings: + paced rhythm Code Status & VTE Plan VTE Prophylaxis Plan VTE Prophylaxis will be ordered: Yes Supervising Physician Co-Signing Physician Notes HISTORY: Record reviewed. Patient interviewed and examined in her room after being admitted from the ED. Care coordinated with Korina Aranda PA-C, please refer to her documentation for patient's history. Briefly, 83-year-old female with history of ischemic heart disease, cardiomyopathy, moderate aortic stenosis, and other problems. Referred to ED because of worsening dyspnea on exertion over the past week or so. Chronic lymphedema of lower extremities, unchanged. No apparent weight gain, although patient unable to weigh herself at home. No associated chest pain. No fever, cough, wheezing. EXAM: General- no distress Lungs- clear to auscultation; no respiratory distress Cardiovascular- RRR; III/ systolic murmur at base; no gallop; + JVD; carotids 2/2 bilat; chronic appearing 4+ lymphedema bilat lower extremities Abdomen- + bowel sounds, soft, nontender Extremities- no cyanosis; no calf tenderness Neuro- alert, oriented Skin- warm & dry DATA: Hemoglobin 13.6, white count 5360, platelet count 269,000. Normal electrolytes, BUN 20, creatinine 1.17, glucose 125. Serum troponin less than 0.015. proBNP 583. Other lab studies as noted. Chest x-ray showed pacemaker, cardiomegaly, no acute process. EKG performed at 1819 reviewed and demonstrated sinus rhythm at 66/minute with ventricular pacing. ASSESSMENT AND PLAN: Worsening dyspnea on exertion. History of ischemic heart disease, cardiomyopathy, and moderate aortic stenosis. CHF appears to be compensated clinically and radiographically; proBNP is normal. Consider myocardial ischemia. Consider worsening aortic stenosis. Check echocardiogram. Consult Cardiology. Please refer to MADISON Aranda's documentation for discussion of other issues.
[2019-05-11] MEDS ORDERED: POLYETHYLENE (MIRALAX) 17 GM PACK PO PRN (22:25)
[2019-05-11] MEDS ORDERED: MECLIZINE HCL 25 MG TAB PO PRN (22:25)
[2019-05-11] MEDS ORDERED: ONDANSETRON INJ 2 MG/ML 2 ML VIAL IV PRN (22:25)
[2019-05-11] MEDS: HEPARIN SOD 5,000 UNIT/0.5 ML VIAL SQ SCH (23:05)
[2019-05-12] MEDS: LEVOTHYROXINE SODIUM 75 MCG TABLET PO SCH (05:51)
[2019-05-12] MEDS: HEPARIN SOD 5,000 UNIT/0.5 ML VIAL SQ SCH ×3 (05:51→19:48)
[2019-05-12 05:59] LABS: Hematocrit (blood only) 34.4 % (37-47); Hemoglobin 11.3 g/dL (12.0-16.0); Mean Corpuscular Hemoglobin 34.7 pg (25-34); Mean Corpuscular Hgb Conc 32.8 g/dL (32-36); Mean Corpuscular Volume 105.5 fL (80-100); Mean Platelet Volume 9.2 fL (7.4-10.4); Platelet Count 242 K/uL (130-400); RDW Coefficient of Variation 13.5 % (11.5-14.5); RDW Standard Deviation 52.2 fL (36.4-46.3); Red Blood Count 3.26 M/uL (4.2-5.4); White Blood Count 5.02 K/uL (4.8-10.8)
[2019-05-12 06:29] LABS: BUN Creatinine Ratio 20.4 (10-20); Calcium 8.7 mg/dl (8.5-10.1); Est GFR (African American) 67.6; Est GFR (Non-African American) 58.3; Potassium 4.1 mmol/L (3.5-5.1)
[2019-05-12] MEDS: MULTIVITAMIN TAB PO SCH (07:57)
[2019-05-12] MEDS: POTASSIUM CHLORIDE 20 MEQ TABCR PO SCH (07:57)
[2019-05-12] MEDS: METOPROLOL SUCC 25MG EXT REL TAB PO SCH (07:57)
[2019-05-12] MEDS: DOCUSATE SODIUM 100 MG CAP PO SCH ×2 (07:58→19:47)
[2019-05-12] MEDS: SPIRONOLACTONE 25 MG TAB PO SCH (07:58)
[2019-05-12] MEDS: MAGNESIUM OXIDE 400 MG TAB PO SCH (07:59)
[2019-05-12] MEDS: ACETAMINOPHEN 325 MG TAB PO SCH ×2 (07:59→19:47)
[2019-05-12] MEDS ORDERED: BUMETANIDE 1 MG TAB PO SCH (09:00)
--- NOTE | 2019-05-12 10:15 | Cardiology Consultation ---
Date of Consultation May 12, 2019 Assessment & Plan (1) Dyspnea on exertion: The patient has a long-standing history of a nonischemic cardiomyopathy in the setting of left bundle branch block. 2016 her ejection fraction had declined to the range of 20 to 25%. Cardiac catheterization performed at that time revealed nonobstructive CAD with a 50% mid LAD lesion. Hemodynamic assessment was consistent with mild and at worst moderate aortic valve stenosis at that time. She went on to have basement of a biventricular pacemaker (without AICD capability) and responded well clinically to cardiac recent radiation therapy with normalization of her LVEF and improvement in her functional capacity. Device interrogation performed as an outpatient last month March, revealed appropriate biventricular pacing 97.9% the time. Appropriate device function. More recently, she has had a subtle decline in her ejection fraction, and she no complaints of dyspnea with minimal exertion. Test findings did not suggest acute volume overload. At this time I recommend proceeding with definitive left and right heart catheterization with coronary angiography. Hemodynamic assessment of diastolic dysfunction and aortic valve stenosis will be performed as well as coronary angiography. The patient has type 2 diabetes mellitus, stage III chronic kidney disease and received a dose of iodinated contrast last evening for a CAT scan. We will therefore allow her to eat today, and we will plan on keeping her n.p.o. after midnight for planned cardiac catheterization tomorrow, 05/13/[address] Calabrese[address] I will place a hold on her Bumex and spironolactone for tomorrow's dose. We will hold her subcutaneous heparin, we will plan on resuming these post cardiac catheterization. The patient and her daughter were agreeable to plan as noted above. Further recommendations be forthcoming after the procedure is completed. History of Present Illness Attending Physician: Hector Timmons MD History of Present Illness Regla Castano is an 83-year-old female seen in cardiology consultation per the request of Korina Aranda PA-C and Dr Timmons of the [facility] group for the evaluation of exertional shortness of breath. The patient is accompanied by her daughter at the bedside today at the time of my history and physical in room 229-2. The patient is well-known to the undersigned as I have followed her on both an outpatient inpatient basis from a cardiology perspective for years. She been seen as an outpatient yesterday in cardiology clinic and had complaints of new onset significant dyspnea with minimal exertion such as walking minimal distance. She states that this is been occurring for approximately last 2 weeks. This is new compared to the chest symptom that prompted her admission 3 months ago in January, at which time she presented with a chest discomfort that was atypical in character for angina. Her EKG reveals chronic ventricular paced rhythm and is therefore nondiagnostic for ischemia. Work-up overnight included troponin which is been undetectable x2. Her proBNP screen was relatively low at 5[address] mL[address] A CT angiogram of the chest revealed no evidence of pulmonary embolism, and no suggestion of interstitial edema. Chest x-ray also revealed no suggestive of CHF. Past Cardiac History: 1. Patient underwent cardiac catheterization in 2011 ([facility] , Dr Qureshi) for symptom of chest discomfort, syncope, and left bundle branch block with preserved LVEF revealing nonobstructive CAD including a 20% proximal and 30% mid LAD lesion, and a 60% stenosis of the first diagonal branch of the LAD. 2. She was subsequently followed for several years for left bundle branch block with preserved LVEF, however in 2015 she developed progressive shortness of breath and an echocardiogram revealed a decline in her ejection fraction to the range of 20 to 25% that was refractory to medication therapy. She therefore underwent repeat invasive coronary angiography as well as hemodynamic assessment due to concerns of aortic valve stenosis in the setting of low ejection fraction, this procedure took place on 06/14/[address] Boucher at [facility]. The report describes nonobstructive CAD with a 50% mid LAD lesion. Hemodynamic assessment of aortic stenosis revealed mild at worst moderate aortic valve stenosis with mean aortic valve gradient of 7.5 mmHg, calculated aortic valve area by cardiac catheterization of over 2 cm at that time. The point of capillary wedge pressure was 16, mild elevation in the right ventricular pressure was noted at 44/4. The patient therefore went on to have placement of a biventricular pacemaker (no AICD capability) in August 2015 due to what was felt to be a nonischemic cardiomyopathy in the setting of left bundle branch block, she had a favorable clinical response to cardiac resynchronization therapy with normalization of her LVEF, and improvement in her functional capacity. 3. Chronic lower extremity lymphedema 4. Obesity Allergies Allergy/AdvReac Type Severity Reaction Status Date / Time aspirin Allergy Intermediate Hives, Verified 02/04/19 18:33 shortness of breath ibuprofen Allergy Intermediate Rash, hives Verified 02/04/19 18:33 Penicillins Allergy Intermediate Rash, hives Verified 02/04/19 18:33 adhesive Allergy Mild Reddened Verified 02/04/19 18:33 and sore skin prednisone Allergy Unknown Confusion Verified 02/04/19 18:43 Home Medications Home Medications Medication Instructions Recorded Confirmed Type acetaminophen [Tylenol Arthritis 1,300 mg PO BID 05/31/18 05/11/19 History Pain] bumetanide 1 mg PO QAM 05/31/18 05/11/19 History levothyroxine 75 mcg PO QAM 05/31/18 05/11/19 History magnesium oxide 400 mg PO QAM 05/31/18 05/11/19 History meclizine 25 mg PO TID PRN 05/31/18 05/11/19 History metoprolol succinate [Toprol XL] 12.5 mg PO QAM 05/31/18 05/11/19 History multivitamin 1 tab PO QAM 05/31/18 05/11/19 History potassium chloride 20 meq PO BID 05/31/18 05/11/19 History spironolactone [Aldactone] 12.5 mg PO QAM 05/31/18 05/11/19 History Glucosamine Chondroitin 1 cap PO QAM 02/04/19 05/11/19 History docusate sodium [Colace] 200 mg PO BID 05/11/19 05/11/19 History ranitidine HCl 150 mg PO HS 05/11/19 05/11/19 History sennosides [Senna Lax] 16.8 mg PO BID PRN 05/11/19 05/11/19 History Patient History Medical History Diabetes mellitus, type II (Chronic) Pacemaker (Chronic) Lymphedema (Chronic) History of recurrent UTIs (Chronic) Arthritis (Chronic) LBBB (left bundle branch block) (Chronic) Vertigo (Chronic) Systolic heart failure (Chronic) Hypothyroidism (Chronic) NICM (nonischemic cardiomyopathy) (Chronic) Surgical History History of knee replacement, total (Chronic) History of hysterectomy (Chronic) Hx of cholecystectomy (Chronic) Family History Other Diabetes Heart disease Hypertension Social History Preferred Language: Kazakh Communication Ability: Effective Scientific Technical Writer 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: No Beliefs That Will Affect Care: None marital status: / Current Living Situation: Alone current occupational status: retired Other Information That Helps Us Care for You: No Feels Safe at Home: Yes Safety Concerns: Feels Safe At This Time Smoking Status: Never smoker Do You Dip or Chew Tobacco: No ; Second Hand Exposure: No ; Hx Alcohol Use: No Hx Substance Use: No Review of Systems Review of Systems: All systems reviewed & are unremarkable except as noted in HPI & below Physical Exam 2 Physical Exam: Temp Pulse Resp BP Pulse Ox 36.9 C 54 L 20 147/76 H 17 L 05/12/19 07:32 05/12/19 07:32 05/12/19 04:12 05/12/19 07:32 05/12/19 07:32 Constitutional: WD/WN, vitals as above Neck: trachea midline Respiratory: normal respiratory effort, lungs clear to auscultation Cardiovascular: RRR, no murmur, no edema Vessels: no JVD Extremities: + edema (Chronic edema, with appearance characteristic for lymphedema, no skin erythema) Gastrointestinal (Abdomen): normal bowel sounds, soft, nontender, no hepatosplenomegaly Neurologic: PERRL, EOMI, accommodation nl, no face palsy, no dysarthria Results & Data Vital Signs (Past 12 Hours) Vital Signs Temp Pulse Pulse Resp BP Pulse Ox 05/12/19 07:32 36.9 C 54 L 147/76 H 17 L 05/12/19 04:12 36.6 C 70 20 144/79 H 95 05/11/19 23:35 63 05/11/19 22:15 36.5 C 65 20 106/62 94 Laboratory Results Cardiac Enzymes 05/11/19 05/12/19 Range/Units 18:19 05:34 AST 16 (15-37) U/L Troponin I < 0.015 < 0.015 (0-0.045) ng/ml Coagulation 05/11/19 Range/Units 18:19 PT 10.7 (9.0-12.0) Seconds APTT 22.1 (21.0-31.0) Seconds CBC 05/11/19 05/12/19 Range/Units 18:19 05:34 WBC 5.36 5.02 (4.8-10.8) K/uL RBC 3.83 L 3.26 L (4.2-5.4) M/uL Hgb 13.6 11.3 L (12.0-16.0) g/dL Hct 40.2 34.4 L (37-47) % Plt Count 269 242 (130-400) K/uL Neut # (Auto) 2.60 (1.4-6.5) K/uL Lymph # (Auto) 2.16 (1.2-3.4) K/uL [place] # (Auto) 0.49 (0.11-0.59) K/uL Eos # (Auto) 0.07 (0-0.5) K/uL Baso # (Auto) 0.03 (0-0.2) K/uL Comprehensive Metabolic Panel 05/11/19 05/12/19 Range/Units 18:19 05:34 Sodium 140 142 (136-145) mmol/L Potassium 3.8 4.1 (3.5-5.1) mmol/L Chloride 105 107 (98-107) mmol/L Carbon Dioxide 27 29 (21-32) mmol/L BUN 20 H 19 H (7-18) mg/dl Creatinine 1.17 0.91 (0.6-1.2) mg/dl Glucose 125 H 99 (70-99) mg/dl Calcium 9.5 8.7 (8.5-10.1) mg/dl AST 16 (15-37) U/L ALT 18 (12-78) U/L Alkaline Phosphatase 98 (45-117) U/L Total Protein 7.8 (6.4-8.2) gm/dl Albumin 4.0 (3.4-5.0) gm/dl Intake and Output 05/11/19 05/12/19 05/12/19 22:59 06:59 14:59 Output Total 401 / 401 Balance -401 / -401 Output: Urine 400 / 400 # Bowel Movements Other: Weight 110.8 kg 110.8 kg Patient Weight 05/13/19 06:59 Weight 110.8 kg Diagnostic Findings EKG performed 05/12/2019 at 6:51 AM reveals sinus rhythm with AV sequential pacing. Summary of transthoracic echocardiogram performed this morning 05/12/2019 reviewed Angel by the undersigned: Mild concentric left ventricular hypertrophy is present with borderline to mild diffuse left ventricular hypokinesis that is more focal in the inferior wall. Low normal LVEF is noted with ejection fraction in the range of 50-55%. The aortic valve is moderately calcified, with Doppler findings suggestive of moderate aortic valve stenosis. The estimated pulmonary artery systolic pressure is normal at 33 mmHg. Grade 1 diastolic dysfunction is noted. Medications Administered Current Inpatient Medications Acetaminophen (Tylenol) 1,300 mg PO BID [facility] Stop: 06/11/19 08:59 Last Admin: 05/12/19 07:59 Dose: 1,300 mg Documented by: Bumetanide (Bumex) 1 mg PO QAM [facility] Stop: 06/11/19 08:59 Last Admin: 05/12/19 07:58 Dose: 1 mg Documented by: Docusate Sodium (Colace) 200 mg PO BID [facility] Stop: 06/11/19 08:59 Last Admin: 05/12/19 07:58 Dose: 200 mg Documented by: Heparin Sodium (Porcine) (Heparin Sodium (Porcine)) 5,000 units SQ Q8 [facility] Stop: 06/10/19 22:24 Last Admin: 05/12/19 05:51 Dose: 5,000 units Documented by: Levothyroxine Sodium (Synthroid) 75 mcg PO DAILYBB [facility] Stop: 06/11/19 06:29 Last Admin: 05/12/19 05:51 Dose: 75 mcg Documented by: Magnesium Oxide (Mag-Ox) 400 mg PO QAM [facility] Stop: 06/11/19 08:59 Last Admin: 05/12/19 07:59 Dose: 400 mg Documented by: Meclizine HCl (Antivert) 25 mg PO TID PRN PRN Reason: Dizziness Stop: 06/10/19 22:24 Metoprolol Su[facility] ([facility] [place] Stop: 06/11/19 08:59 Last Admin: 05/12/19 07:57 Dose: 12.5 mg Documented by: Multivitamins ([facility]ivitamin Tab) [facility] [place] Stop: 06/11/19 08:59 Last Admin: 05/12/19 07:57 Dose: 1 tab Documented by: Ondansetron HCl (Zofran) 4 mg IV Q6H PRN PRN Reason: Nausea Stop: 06/10/19 22:24 Polyethylene Glycol (Miralax Powder Packet) 17 gm PO DAILY PRN PRN Reason: Constipation Stop: 06/10/19 22:24 Potassium Chloride (Klor-Con M20) 20 meq PO BID [facility] Stop: 06/11/19 08:59 Last Admin: 05/12/19 07:57 Dose: 20 meq Documented by: Ranitidine HCl (Zantac) 150 mg PO HS [facility] Stop: 06/11/19 20:59 Spironolactone (Aldactone) 12.5 mg PO QAM [facility] Stop: 06/11/19 08:59 Last Admin: 05/12/19 07:58 Dose: 12.5 mg Documented by:
[2019-05-12] MEDS ORDERED: SODIUM CHLORIDE 0.9% 1000ML 1,000 ML IV SCH (11:30)
--- NOTE | 2019-05-12 18:12 | Hospitalist Progress Note ---
Date of Service May 12, 2019 Assessment & Plan (1) Dyspnea on exertion: This is an 83-year-old female with a PMH of CAD, DM II, LBBB, systolic heart failure, CKD III, lymphedema and other medical problems listed below who presents with worsening dyspnea on exertion x1 week. -Chest x-ray without any acute cardiopulmonary abnormalities. Chest CTA without evidence of pulmonary embolus -as per cardiology evaluation on 05/12/19 that recently, patient has had a subtle decline in her ejection fraction. Patient having complaints of dyspnea with exertion. Cardiology service recommend proceeding with definitive left and right heart catheterization with coronary angiography with Hemodynamic assessment of diastolic dysfunction and aortic valve stenosis to be performed on 05/13/19 as of 05/12/19, cardiology has placed a hold on her Bumex and spironolactone for tomorrow's dose; hold her subcutaneous heparin, will plan on resuming these post cardiac catheterization. (2) Systolic heart failure: (3) NICM (nonischemic cardiomyopathy): -Patient underwent cardiac catheterization in 2011 ([facility] , Dr Qureshi) for symptom of chest discomfort, syncope, and left bundle branch block with preserved LVEF revealing nonobstructive CAD including a 20% proximal and 30% mid LAD lesion, and a 60% stenosis of the first diagonal branch of the LAD. -She was subsequently followed for several years for left bundle branch block with preserved LVEF, however in 2015 she developed progressive shortness of breath and an echocardiogram revealed a decline in her ejection fraction to the range of 20 to 25% that was refractory to medication therapy. -06/14/2016 patient had repeat invasive coronary angiography as well as hemodynamic assessment due to concerns of aortic valve stenosis in the setting of low ejection fraction, and the report describes nonobstructive CAD with a 50% mid LAD lesion with hemodynamic assessment of aortic stenosis revealed mild at worst moderate aortic valve stenosis -The patient therefore went on to have placement of a biventricular pacemaker (no AICD capability) in August 2015 due to what was felt to be a nonischemic cardiomyopathy in the setting of left bundle branch block -Device interrogation performed as an outpatient last month March, revealed appropriate biventricular pacing 97.9% the time -as per cardiology evaluation on 05/12/19 that recently, patient has had a subtle decline in her ejection fraction. Patient having complaints of dyspnea with exertion. Cardiology service recommend proceeding with definitive left and right heart catheterization with coronary angiography with Hemodynamic assessment of d iastolic dysfunction and aortic valve stenosis to be performed on 05/13/19 (4) Hypothyroidism: Continue levothyroxine (5) Diabetes mellitus, type II: A1c of 6.1 in February 2019 -Not on diabetic medications -Carb consistent diet NPO after midnight for planned cardic cath on 05/13/19 upgrade from observation to admission status because cardiology service to perform cardiac cath DVT Ppx: hold her subcutaneous heparin, plan on resuming these post cardiac catheterization on 05/13/19 Code status: FULL per discussion with patient PCP: Kennedy Daughter [phone] Subjective Patient reported dsypnea on exertion with minimal exertion walking back from bathroom today. currently no shortness of breath at rest. denies lightheadedness or dizziness or chest pain. no palpitations. no abdomen pain. no nausea. no vomiting Physical Exam Constitutional: comfortable Eyes: PERRL, conjunctivae normal, anicteric sclerae EOM intact bilaterally ENMT: external ear and nose normal, oropharynx normal Neck: normal visual inspection Respiratory: normal respiratory effort, lungs clear to auscultation Cardiovascular: Rate/Rhythm: regular rate bilateral lower extremity edema Gastrointestinal (Abdomen): normal bowel sounds, soft, nontender, no hepatosplenomegaly Musculoskeletal: Head/Neck/Chest: normocephalic and head atraumatic Neurologic: PERRL, EOMI, accommodation nl, no face palsy, no dysarthria Psychiatric: A+Ox3, euthymic affect Results & Data Vital Signs (Past 12 Hours) Vital Signs Temp Pulse Resp BP Pulse Ox 05/12/19 15:08 36.4 C L 65 20 135/61 96 05/12/19 11:52 36.5 C 64 18 144/65 H 96 05/12/19 07:32 36.9 C 54 L 147/76 H 17 L
[2019-05-13] MEDS: SODIUM CHLORIDE 0.9% 1000ML 1,000 ML IV SCH ×2 (01:03→15:03)
[2019-05-13] MEDS: LEVOTHYROXINE SODIUM 75 MCG TABLET PO SCH (05:54)
[2019-05-13 06:27] LABS: Hemoglobin 11.1 g/dL (12.0-16.0); Mean Corpuscular Hemoglobin 35.2 pg (25-34); Mean Corpuscular Hgb Conc 33.6 g/dL (32-36); Mean Corpuscular Volume 104.8 fL (80-100); Platelet Count 224 K/uL (130-400); RDW Coefficient of Variation 13.5 % (11.5-14.5); RDW Standard Deviation 50.8 fL (36.4-46.3); Red Blood Count 3.15 M/uL (4.2-5.4); White Blood Count 5.54 K/uL (4.8-10.8)
[2019-05-13 07:00] LABS: BUN Creatinine Ratio 24.8 (10-20); Calcium 8.2 mg/dl (8.5-10.1); Est GFR (African American) 72.4; Est GFR (Non-African American) 62.5; Potassium 3.7 mmol/L (3.5-5.1)
[2019-05-13] MEDS: ACETAMINOPHEN 325 MG TAB PO SCH ×2 (08:23→21:15)
[2019-05-13] MEDS: MULTIVITAMIN TAB PO SCH (08:24)
[2019-05-13] MEDS: METOPROLOL SUCC 25MG EXT REL TAB PO SCH (08:24)
[2019-05-13] MEDS: MAGNESIUM OXIDE 400 MG TAB PO SCH (08:25)
[2019-05-13] MEDS: DOCUSATE SODIUM 100 MG CAP PO SCH ×2 (08:25→21:16)
[2019-05-13] MEDS ORDERED: fentaNYL citrate 100 MCG/2 ML VIAL ONE (10:08)
[2019-05-13] MEDS ORDERED: MIDAZOLAM HCL 1 MG/ML 2ML VIAL ONE (10:08)
[2019-05-13] MEDS ORDERED: SODIUM CHLORIDE 0.9% 1000ML 1,000 ML IV SCH (11:15)
--- NOTE | 2019-05-13 11:27 | Cardiac Catheterization ---
Date of Service May 13, 2019 Cardiac Cath Report Cardiac Cath Report Procedure: 1. Left heart catheterization 2. Right heart catheterization 3. Coronary angiography 4. Left ventriculography History: This is an 83-year-old female with a history of a dilated cardiomyopathy and a biventricular pacemaker. She has had progressive shortness of breath of undetermined etiology. Procedure summary: After informed consent was obtained the patient was taken to the cardiac catheterization lab where she was prepped and draped in the usual manner for a right transfemoral approach. A [place] catheter was utilized for right heart pressures and cardiac outputs. A 5 [place] preformed diagnostic catheters were utilized for the coronary angiograms. A 5 [place] pigtail catheter was utilized for left heart pressures in the left ventriculogram. Following the procedure the arterial site was closed with a minx device and the patient was taken to the holding area the Grocery Manager in stable condition. ACC data: Start time 10:11 AM End time 11:07 AM Opening aortic pressure 182/92 Closing aortic pressure 176/102 LV pressure 204/21 Sedation 1 mg intravenous Versed IV fluid 100 cc normal saline Contrast 90 cc Optiray Fluoroscopy time 16 minutes and 2 seconds Radiation 2107 mGy Dap 204.8 mGy/m AUC score 7 Right dominant system Hemodynamic data: Right atrial 28 mmHg Right ventricular 63/27 mmHg PA pressure 59/21 mmHg Pulmonary capillary wedge pressure 32 mmHg Central aortic 182/92 mmHg LV 204/21 mmHg Cardiac output by thermal dilution 5.17 L/min Cardiac output by Alida 4.51 L/min Cardiac index 2.55 L/min/m Left ventriculogram: The left ventricle is dilated with severe global hypokinesis. The estimated left ventricular ejection fraction is 30%. Coronary angiography: Selective injections of the left coronary artery revealed the left main trunk to be widely patent. The left circumflex artery consists of a medium size first marginal and second marginal than a large third marginal. The left circumflex artery is widely patent. The LAD gives off a large first diagonal branch. In the mid to distal portion of the LAD there is minor nonobstructive disease with the remainder the artery being widely patent. The large first diagonal is widely patent. Selective injections of the right coronary artery reveal it to be dominant. The right coronary artery is widely patent with luminal irregularities in its mid segment. Summary: The patient has pulmonary hypertension as well as systemic hypertension. Left ventricular function is severely reduced. Coronary anatomy is widely patent. Recommendations: Medical management of the patient's dilated cardiomyopathy.
[2019-05-13] MEDS ORDERED: cefTRIAXone SODIUM 2,000 MG in DEXTROSE 5% 50 ML IV STA (12:08)
[2019-05-13] MEDS: MAGNESIUM SULFATE / D5W 1 GM/100 ML BAG IV SCH ×2 (13:33→14:27)
--- NOTE | 2019-05-13 14:33 | Hospitalist Progress Note ---
Date of Service May 13, 2019 Assessment & Plan (1) Dyspnea on exertion: This is an 83-year-old female with a PMH of CAD, DM II, LBBB, systolic heart failure, CKD III, lymphedema and other medical problems listed below who presents with worsening dyspnea on exertion x1 week. -Chest x-ray without any acute cardiopulmonary abnormalities. Chest CTA without evidence of pulmonary embolus -as per cardiology evaluation on 05/12/19 that recently, patient has had a subtle decline in her ejection fraction. Patient having complaints of dyspnea with exertion. Cardiology service recommend proceeding with definitive left and right heart catheterization with coronary angiography with Hemodynamic assessment of diastolic dysfunction and aortic valve stenosis to be performed on 05/13/19 (2) Systolic heart failure: (3) NICM (nonischemic cardiomyopathy): -Patient underwent cardiac catheterization in 2011 ([facility] , Dr Qureshi) for symptom of chest discomfort, syncope, and left bundle branch block with preserved LVEF revealing nonobstructive CAD including a 20% proximal and 30% mid LAD lesion, and a 60% stenosis of the first diagonal branch of the LAD. -She was subsequently followed for several years for left bundle branch block with preserved LVEF, however in 2015 she developed progressive shortness of breath and an echocardiogram revealed a decline in her ejection fraction to the range of 20 to 25% that was refractory to medication therapy. -06/14/2016 patient had repeat invasive coronary angiography as well as hemodynamic assessment due to concerns of aortic valve stenosis in the setting of low ejection fraction, and the report describes nonobstructive CAD with a 50% mid LAD lesion with hemodynamic assessment of aortic stenosis revealed mild at worst moderate aortic valve stenosis -The patient therefore went on to have placement of a biventricular pacemaker (no AICD capability) in August 2015 due to what was felt to be a nonischemic cardiomyopathy in the setting of left bundle branch block -Device interrogation performed as an outpatient last month March, revealed appropriate biventricular pacing 97.9% the time -as per cardiology evaluation on 05/12/19 that recently, patient has had a subtle decline in her ejection fraction. Patient having complaints of dyspnea with exertion. Cardiology service recommend proceeding with definitive left and right heart catheterization with coronary angiography with Hemodynamic assessment of diastolic dysfunction and aortic valve stenosis to be performed on 05/13/19 Cardiac cath performed on 05/13/19 and that The patient has pulmonary hypertension as well as systemic hypertension. Left ventricular function is severely reduced. Coronary anatomy is widely patent. Cardiac cath Recommendations: Medical management of the patient's dilated cardiomyopathy. Discussed with Dr. Calabrese that patient's medical management may involve needing more diuresis while in the hospital will plan on resuming spirolactone tomorrow will plan on Lasix IV BID with first dose at night of 05/13/19 and holding home dose bumex (4) Hypothyroidism: Continue levothyroxine (5) UTI due to Klebsiella species: -urine culture with porter sensitive Klebsiella pneumoniae -discussed with patient about possible colonization given Klebsiella pneumoniae in urine in May 2018. However, patient did have normal 02/04/19 urine analysis -started ceftriaxone 2 grams daily for urinary tract infection (6) Diabetes mellitus, type II: HbA1c of 6.1 in February 2019 -Not on diabetic medications as patient's diabetes is diet controlled -continue Carb consistent diet DVT Ppx: SCDS for now, heparin subcutaneous may be resumed starting on 05/14/19 to avoid potential bleeding issues from developing due to recent cardiac cath Code status: FULL CODE PCP: Kennedy Daughter [phone] Subjective Patient returns from cardiac cath. Patient denies acute pain. breathing is non labored. denies headache or dizziness or lightheadedness. Physical Exam Constitutional: comfortable Eyes: PERRL, conjunctivae normal, anicteric sclerae EOM intact bilaterally ENMT: external ear and nose normal, oropharynx normal Neck: normal visual inspection Respiratory: normal respiratory effort, lungs clear to auscultation Cardiovascular: Rate/Rhythm: + bradycardic Gastrointestinal (Abdomen): normal bowel sounds, soft, nontender, no hepatosplenomegaly Musculoskeletal: Head/Neck/Chest: normocephalic and head atraumatic presence of bilateral lower extremity edema Neurologic: PERRL, EOMI, accommodation nl, no face palsy, no dysarthria Psychiatric: A+Ox3, euthymic affect Results & Data Vital Signs (Past 12 Hours) Vital Signs Temp Pulse Resp BP Pulse Ox 05/13/19 13:29 36.5 C 59 L 16 121/75 93 05/13/19 12:29 36.5 C 18 124/78 93 05/13/19 12:15 36.5 C 64 16 162/90 H 96 05/13/19 11:59 36.4 C L 60 17 167/84 H 97 05/13/19 11:45 36.4 C L 62 18 167/84 H 96 05/13/19 08:08 36.8 C 63 18 135/77 95 05/13/19 03:41 36.6 C 60 18 109/58 L 96
[2019-05-13 18:58] LABS: Albumin Level 3.4 gm/dl (3.4-5.0); BUN Creatinine Ratio 16.3 (10-20); Calcium 8.9 mg/dl (8.5-10.1); Creatinine Clr Calc Pharmacy 45.3 ml/min; Est GFR (African American) 55.6; Magnesium 2.4 mg/dl (1.8-2.4); Potassium 3.9 mmol/L (3.5-5.1)
[2019-05-13 19:01] LABS: Albumin Globulin Ratio 0.9 (0.9-2); Bilirubin,Total 0.3 mg/dl (0.2-1); Globulin 3.6 gm/dl (2.5-4.0)
[2019-05-13] MEDS: FUROSEMIDE 40 MG in SYRINGE 0 ML IV SCH (21:15)
[2019-05-14] MEDS: LEVOTHYROXINE SODIUM 75 MCG TABLET PO SCH (05:35)
[2019-05-14] MEDS: METOPROLOL SUCC 25MG EXT REL TAB PO SCH (08:22)
[2019-05-14] MEDS: MAGNESIUM OXIDE 400 MG TAB PO SCH (08:22)
[2019-05-14] MEDS: DOCUSATE SODIUM 100 MG CAP PO SCH ×2 (08:22→20:06)
[2019-05-14] MEDS: MULTIVITAMIN TAB PO SCH (08:22)
[2019-05-14] MEDS: ACETAMINOPHEN 325 MG TAB PO SCH ×2 (08:22→20:06)
[2019-05-14] MEDS: FUROSEMIDE 40 MG in SYRINGE 0 ML IV SCH ×2 (08:23→13:30)
[2019-05-14 08:26] LABS: Albumin Globulin Ratio 1.2 (0.9-2); Albumin Level 3.3 gm/dl (3.4-5.0); BUN Creatinine Ratio 20.1 (10-20); Bilirubin,Total 0.4 mg/dl (0.2-1); Calcium 8.9 mg/dl (8.5-10.1); Creatinine Clr Calc Pharmacy 52.4 ml/min; Est GFR (African American) 66.7; Est GFR (Non-African American) 57.6; Globulin 2.7 gm/dl (2.5-4.0); Potassium 3.8 mmol/L (3.5-5.1)
[2019-05-14] MEDS: cefTRIAXone SODIUM 2,000 MG in DEXTROSE 5% 50 ML IV SCH (09:03)
[2019-05-14 09:41] LABS: iSTAT Arterial Blood Gas HCO3 23 meg/L (19-24); iSTAT Arterial Blood Gas pCO2 43 mmHg (35-46); iSTAT Arterial Blood Gas pH 7.34 (7.35-7.45); iSTAT Arterial Blood Gas pO2 103 mmHg (80-95); iSTAT Carbon Dioxide 25 mEq/l (24-31)
[2019-05-14 09:42] LABS: iSTAT Venous Carbon Dioxide 27 mEq/l (24-31)
[2019-05-14] MEDS: SPIRONOLACTONE 25 MG TAB PO SCH (10:12)
--- NOTE | 2019-05-14 11:32 | Cardiology Progress Note ---
Date of Service May 14, 2019 Assessment & Plan (1) NICM (nonischemic cardiomyopathy): Cardiac catheterization data is very helpful. There is no significant obstructive CAD, so it does not appear that her presenting symptoms of dyspnea on exertion due to angina. Severe aortic stenosis was excluded. Elevated pulmonary capillary wedge pressure, right ventricular and pulmonary pressures, as well as systemic hypertension was observed, consistent with systolic and diastolic dysfunction, patient needs a significant dose of diuretic therapy. Her blood pressure has been much better controlled since arriving back to the floor. She has been placed on IV diuretics, which I think we should continue to reassess tomorrow. Resume DVT prophylaxis Lovenox dose 40 mg subcutaneous daily. Continue furosemide 40 mg twice daily ,dosing changed to 7 am, 1400. (2) Aortic stenosis, moderate: (3) Lymphedema: (4) Pacemaker: Subjective Chief complaint: Follow-up exertional dyspnea Subjective: Patient is in good spirits. She feels well. She tolerated cardiac catheterization well without complication yesterday. Last evening she was in the bathroom for a bowel movement, and tachycardia was noted on her seed collector. Although heart rates up to 160 bpm were reported, per my review of her telemetry, I see that the fastest heart rates for the most part in the range of 135 bpm. It appears that for a brief interval of time still being paced, [place] left bundle branch block came through, and this resolved spontaneously within seconds. Similar episode occurred when she walked to the bathroom this morning. Patient states that she was completely asymptomatic during this time. Her device was interrogated revealing appropriate function without significant arrhythmia. She is biventricular paced 89% the time, when accounting for time which she is left ventricular paced she is receiving cardiac resynchronization therapy 98to 99% the time. Her generator longevity is stable at 3 years. Review of Systems Review of Systems: All systems reviewed & are unremarkable except as noted in HPI & below Physical Exam Physical Exam: Temp Pulse Resp BP Pulse Ox 36.4 C L 67 19 103/65 95 05/14/19 10:55 05/14/19 10:55 05/14/19 10:55 05/14/19 10:55 05/14/19 10:55 Constitutional: WD/WN, vitals as above Respiratory: normal respiratory effort, lungs clear to auscultation Cardiovascular: RRR, no murmur, no edema Right femoral arterial/venous site dry and intact post cardiac catheterization without evidence of ecchymosis or hematoma. Gastrointestinal (Abdomen): normal bowel sounds, soft, nontender, no hepatosplenomegaly Neurologic: PERRL, EOMI, accommodation nl, no face palsy, no dysarthria Results & Data Vital Signs (Past 12 Hours) Vital Signs Temp Pulse Pulse Resp BP BP Pulse Ox 05/14/19 10:55 36.4 C L 67 19 103/65 95 05/14/19 07:01 36.8 C 65 18 112/62 90 05/14/19 03:05 36.7 C 76 18 116/74 93 05/14/19 01:34 65
[2019-05-14] MEDS: ENOXAPARIN INJ 40 MG/0.4 ML SYR SQ SCH (12:20)
--- NOTE | 2019-05-14 12:57 | Hospitalist Progress Note ---
Date of Service May 14, 2019 Assessment & Plan (1) Dyspnea on exertion: This is an 83-year-old female with a PMH of CAD, DM II, LBBB, systolic heart failure, CKD III, lymphedema and other medical problems listed below who presents with worsening dyspnea on exertion x1 week. -Chest x-ray without any acute cardiopulmonary abnormalities. Chest CTA without evidence of pulmonary embolus -as per cardiology evaluation on 05/12/19 that recently, patient has had a subtle decline in her ejection fraction. -cardiology management as described below (2) NICM (nonischemic cardiomyopathy): Acute on chronic combined systolic (congestive) and diastolic (congestive) heart failure -Patient underwent cardiac catheterization in 2011 ([facility] , Dr Qureshi) for symptom of chest discomfort, syncope, and left bundle branch block with preserved LVEF revealing nonobstructive CAD including a 20% proximal and 30% mid LAD lesion, and a 60% stenosis of the first diagonal branch of the LAD. -She was subsequently followed for several years for left bundle branch block with preserved LVEF, however in 2015 she developed progressive shortness of breath and an echocardiogram revealed a decline in her ejection fraction to the range of 20 to 25% that was refractory to medication therapy. -06/14/2016 patient had repeat invasive coronary angiography as well as hemodynamic assessment due to concerns of aortic valve stenosis in the setting of low ejection fraction, and the report describes nonobstructive CAD with a 50% mid LAD lesion with hemodynamic assessment of aortic stenosis revealed mild at worst moderate aortic valve stenosis -The patient therefore went on to have placement of a biventricular pacemaker (no AICD capability) in August 2015 due to what was felt to be a nonischemic cardiomyopathy in the setting of left bundle branch block -Device interrogation performed as an outpatient last month March, revealed appropriate biventricular pacing 97.9% the time -as per cardiology evaluation on 05/12/19 that recently, patient has had a subtle decline in her ejection fraction. Patient having complaints of dyspnea with exertion. Cardiology service recommend proceeding with definitive left and right heart catheterization with coronary angiography with Hemodynamic assessment of diastolic dysfunction and aortic valve stenosis to be performed on 05/13/19 -Cardiac cath performed on 05/13/19 and that The patient has pulmonary hypertension as well as systemic hypertension (Left ventricular function is severely reduced. Elevated pulmonary capillary wedge pressure, right ventricular and pulmonary pressures, as well as systemic hypertension was observed, consistent with systolic and diastolic dysfunction). Coronary anatomy is widely patent. There is no significant obstructive CAD, so it does not appear that her presenting symptoms of dyspnea on exertion due to angina. -continue home dose spirolactone, continue Lasix as 40 mg IV BID (3) Aortic stenosis, moderate: -no severe aortic stenosis on cardiac cath on 05/13/19 (4) Pacemaker: Presence of pacemaker Left Bundle Branch block -from 6:03 to 6:08 PM on 05/13/19, patient appeared to have a run of ventricular tachycardia. as per nurse, this started when patient was ambulating to bathroom, as per patient she went to the bathroom and then bear down, she denied of having any symptoms, 12 lead EKG performed showed heart rate and rhythm back at baseline. on exam, patient appeared comfortable and heart rate at baseline. nurse showed telemetry rhythm strip to cardiology Sigrid Sullivan. he recommend pace maker interrogation -again around 9 AM on 05/14/19 patient recorded to have runs of tachycardia and again was asymptomatic -as per cardiology Dr. Heredia evaluation on 05/14/19: Her device was interrogated revealing appropriate function without significant arrhythmia. She is biventricular paced 89% the time, when accounting for time which she is left ventricular paced she is receiving cardiac resynchronization therapy 98to 99% the time. Her generator longevity is stable at 3 years -currently the periods of tachycardia are being attributed to left bundle branch block which patient is known to have (5) Hypothyroidism: Continue levothyroxine (6) UTI due to Klebsiella species: -urine culture with porter sensitive Klebsiella pneumoniae -discussed with patient about possible colonization given Klebsiella pneumoniae in urine in May 2018. However, patient did have normal 02/04/19 urine anal ysis -started ceftriaxone 2 grams daily for urinary tract infection on 05/13/19, continue (7) Diabetes mellitus, type II: HbA1c of 6.1 in February 2019 -Not on diabetic medications as patient's diabetes is diet controlled -continue Carb consistent diet Obesity with BMI 47.8 -PT/OT evaluations DVT Ppx: Lovenox 40 mg daily Code status: FULL CODE PCP: Kennedy Daughter [phone] Daughter [phone] Subjective Patient denies feeling palpitations this AM despite telemetry picking up tachycardia around 9 AM. Patient denies of having any acute symptoms since cardiac cath yesterday. denies shortness of breath at rest. she has not ambulated today. no chest pain. no palpitations. no headache. no dizziness Physical Exam Constitutional: + obese and comfortable Eyes: PERRL, conjunctivae normal, anicteric sclerae EOM intact bilaterally ENMT: external ear and nose normal, oropharynx normal Neck: normal visual inspection Respiratory: normal respiratory effort, lungs clear to auscultation Cardiovascular: Rate/Rhythm: + bradycardic Gastrointestinal (Abdomen): normal bowel sounds, soft, nontender, no hepatosplenomegaly Musculoskeletal: Head/Neck/Chest: normocephalic and head atraumatic Extremities: + foot abnormality (bilateral pedal edema) Neurologic: PERRL, EOMI, accommodation nl, no face palsy, no dysarthria Psychiatric: A+Ox3, euthymic affect Results & Data Vital Signs (Past 12 Hours) Vital Signs Temp Pulse Pulse Resp BP BP Pulse Ox 05/14/19 10:55 36.4 C L 67 19 103/65 95 05/14/19 07:01 36.8 C 65 18 112/62 90 05/14/19 03:05 36.7 C 76 18 116/74 93 05/14/19 01:34 65
[2019-05-15] MEDS: LEVOTHYROXINE SODIUM 75 MCG TABLET PO SCH (05:17)
[2019-05-15 06:09] LABS: Hematocrit (blood only) 32.1 % (37-47); Hemoglobin 10.7 g/dL (12.0-16.0); Mean Corpuscular Hemoglobin 35.1 pg (25-34); Mean Corpuscular Hgb Conc 33.3 g/dL (32-36); Mean Corpuscular Volume 105.2 fL (80-100); Mean Platelet Volume 9.3 fL (7.4-10.4); Platelet Count 222 K/uL (130-400); RDW Coefficient of Variation 13.6 % (11.5-14.5); RDW Standard Deviation 51.7 fL (36.4-46.3); Red Blood Count 3.05 M/uL (4.2-5.4); White Blood Count 5.82 K/uL (4.8-10.8)
[2019-05-15 06:45] LABS: Calcium 8.5 mg/dl (8.5-10.1); Creatinine Clr Calc Pharmacy 40.5 ml/min; Est GFR (African American) 49.4; Est GFR (Non-African American) 42.6; Magnesium 2.1 mg/dl (1.8-2.4); Potassium 3.8 mmol/L (3.5-5.1)
[2019-05-15] MEDS: METOPROLOL SUCC 25MG EXT REL TAB PO SCH (08:16)
[2019-05-15] MEDS: MULTIVITAMIN TAB PO SCH (08:16)
[2019-05-15] MEDS: SPIRONOLACTONE 25 MG TAB PO SCH (08:17)
[2019-05-15] MEDS: ENOXAPARIN INJ 40 MG/0.4 ML SYR SQ SCH (08:19)
[2019-05-15] MEDS: DOCUSATE SODIUM 100 MG CAP PO SCH ×2 (08:20→20:34)
[2019-05-15] MEDS: ACETAMINOPHEN 325 MG TAB PO SCH ×2 (08:20→20:34)
[2019-05-15] MEDS: FUROSEMIDE 40 MG in SYRINGE 0 ML IV SCH ×2 (08:21→14:38)
[2019-05-15] MEDS: MAGNESIUM OXIDE 400 MG TAB PO SCH (08:21)
[2019-05-15] MEDS: cefTRIAXone SODIUM 2,000 MG in DEXTROSE 5% 50 ML IV SCH (08:23)
--- NOTE | 2019-05-15 10:03 | Hospitalist Progress Note ---
Date of Service May 15, 2019 Assessment & Plan (1) Dyspnea on exertion: This is an 83-year-old female with a PMH of CAD, DM II, LBBB, systolic heart failure, CKD III, lymphedema and other medical problems listed below who presents with worsening dyspnea on exertion x1 week. -Chest x-ray without any acute cardiopulmonary abnormalities. Chest CTA without evidence of pulmonary embolus -as per cardiology evaluation on 05/12/19 that recently, patient has had a subtle decline in her ejection fraction. -cardiology management as described below (2) NICM (nonischemic cardiomyopathy): Acute on chronic combined systolic (congestive) and diastolic (congestive) heart failure -Patient underwent cardiac catheterization in 2011 ([facility] , Dr Qureshi) for symptom of chest discomfort, syncope, and left bundle branch block with preserved LVEF revealing nonobstructive CAD including a 20% proximal and 30% mid LAD lesion, and a 60% stenosis of the first diagonal branch of the LAD. -She was subsequently followed for several years for left bundle branch block with preserved LVEF, however in 2015 she developed progressive shortness of breath and an echocardiogram revealed a decline in her ejection fraction to the range of 20 to 25% that was refractory to medication therapy. -06/14/2016 patient had repeat invasive coronary angiography as well as hemodynamic assessment due to concerns of aortic valve stenosis in the setting of low ejection fraction, and the report describes nonobstructive CAD with a 50% mid LAD lesion with hemodynamic assessment of aortic stenosis revealed mild at worst moderate aortic valve stenosis -The patient therefore went on to have placement of a biventricular pacemaker (no AICD capability) in August 2015 due to what was felt to be a nonischemic cardiomyopathy in the setting of left bundle branch block -Device interrogation performed as an outpatient last month March, revealed appropriate biventricular pacing 97.9% the time -as per cardiology evaluation on 05/12/19 that recently, patient has had a subtle decline in her ejection fraction. Patient having complaints of dyspnea with exertion. Cardiology service recommend proceeding with definitive left and right heart catheterization with coronary angiography with Hemodynamic assessment of diastolic dysfunction and aortic valve stenosis to be performed on 05/13/19 -Cardiac cath performed on 05/13/19 and that The patient has pulmonary hypertension as well as systemic hypertension (Left ventricular function is severely reduced. Elevated pulmonary capillary wedge pressure, right ventricular and pulmonary pressures, as well as systemic hypertension was observed, consistent with systolic and diastolic dysfunction). Coronary anatomy is widely patent. There is no significant obstructive CAD, so it does not appear that her presenting symptoms of dyspnea on exertion due to angina. -continue home dose spirolactone, continue Lasix as 40 mg IV BID (3) Aortic stenosis, moderate: -no severe aortic stenosis on cardiac cath on 05/13/19 (4) Pacemaker: Presence of pacemaker Left Bundle Branch block -from 6:03 to 6:08 PM on 05/13/19, patient appeared to have a run of ventricular tachycardia. as per nurse, this started when patient was ambulating to bathroom, as per patient she went to the bathroom and then bear down, she denied of having any symptoms, 12 lead EKG performed showed heart rate and rhythm back at baseline. on exam, patient appeared comfortable and heart rate at baseline. nurse showed telemetry rhythm strip to cardiology [facility] Danielle Sullivan. he recommend pace maker interrogation -again around 9 AM on 05/14/19 patient recorded to have runs of tachycardia and again was asymptomatic -as per cardiology Dr. Heredia evaluation on 05/14/19: Her device was interrogated revealing appropriate function without significant arrhythmia. She is biventricular paced 89% the time, when accounting for time which she is left ventricular paced she is receiving cardiac resynchronization therapy 98to 99% the time. Her generator longevity is stable at 3 years -at this time the periods of tachycardia are being attributed to left bundle branch block which patient is known to have (5) Hypothyroidism: Continue levothyroxine (6) UTI due to Klebsiella species: -urine culture with porter sensitive Klebsiella pneumoniae -discussed with patient about possible colonization given Klebsiella pneumoniae in urine in May 2018. However, patient did have normal 02/04/19 urine a nalysis -started ceftriaxone 2 grams daily for urinary tract infection on 05/13/19, continue ceftriaxone (7) Diabetes mellitus, type II: HbA1c of 6.1 in February 2019 -Not on diabetic medications as patient's diabetes is diet controlled -continue Carb consistent diet Obesity with BMI 47.8 -PT/OT evaluations DVT Ppx: Lovenox 40 mg daily Code status: FULL CODE PCP: Kennedy Daughter [phone] Daughter [phone] Subjective Patient reports she has no breathing difficulty when at rest. She has not moved out of bed yesterday or today. Dr. Heredia discussed with patient and hospitalist about continuing IV diuresis for further fluid output. Patient denies lightheadedness. no chest pain. no abdominal pain. no nausea. no vomiting Physical Exam Constitutional: + obese and comfortable Eyes: PERRL, conjunctivae normal, anicteric sclerae EOM intact bilaterally ENMT: external ear and nose normal, oropharynx normal Neck: normal visual inspection Respiratory: normal respiratory effort, lungs clear to auscultation Cardiovascular: Rate/Rhythm: + bradycardic Gastrointestinal (Abdomen): normal bowel sounds, soft, nontender, no hepatosplenomegaly Musculoskeletal: Head/Neck/Chest: normocephalic and head atraumatic Extremities: + foot abnormality (bilateral pedal edema) Neurologic: PERRL, EOMI, accommodation nl, no face palsy, no dysarthria Psychiatric: A+Ox3, euthymic affect Results & Data Vital Signs (Past 12 Hours) Vital Signs Temp Pulse Resp BP BP Pulse Ox 05/15/19 07:14 36.7 C 63 17 118/24 L 92 05/15/19 03:30 36.7 C 68 18 120/76 95 05/14/19 23:00 37.0 C 63 18 111/63 94
--- NOTE | 2019-05-15 10:59 | Cardiology Progress Note ---
Date of Service May 15, 2019 Assessment & Plan (1) NICM (nonischemic cardiomyopathy): Patient presents with dyspnea on exertion, long-standing history of nonischemic cardiomyopathy, acute on chronic combined systolic, diastolic dysfunction. Her ejection fraction measurements have been somewhat discordant, with ejection fraction in the range of 30 noted by left ventriculography, 50% on most recent transthoracic echocardiogram, and past echocardiograms in the range of 45%. I feel she likely has residual mild left ventricular systolic dysfunction (were perhaps low normal) based on her review of her serial echocardiograms studies. Hemodynamic assessment performed in the [employer] is consistent with diastolic dysfunction with resultant elevated LVEDP and pulmonary hypertension. At this time continue IV diuretics. We will likely transition her from IV furosemide to oral torsemide instead of her previous dose of oral Bumex. Perhaps her screening BNP noted on admission was falsely low due to obesity. Blood pressures are better controlled today, but given her history of cardi omyopathy, will start low-dose lisinopril 5 mg. Looking back, she had been on this medication as an outpatient in 2012, I do not think she has been on an MARIO inhibitor or angiotensin receptor barry due to relative hypotension as well as her preference to be on as few medications as possible, but given her symptoms now is the time to reintroduce this medication. Trend renal function. Continue IV diuretics and will reassess her tomorrow. Continue subcutaneous Lovenox for DVT prophylaxis. Increase activity as tolerated, physical therapy and Occupational Therapy consulted. Patient to resume home physical therapy for lymphedema as an outpatient. Subjective Chief Complaint: Follow-up dyspnea with exertion Subjective: Patient in good spirits, feeling well. No additional tachycardia recently noted on the monitor. 4.2 L of urine output noted on 05/14/2019, and 1.9 L noted as of this a.m. 05/15/2019. Review of Systems Review of Systems: All systems reviewed & are unremarkable except as noted in HPI & below Physical Exam Physical Exam: Temp Pulse Resp BP Pulse Ox 36.7 C 63 17 118/24 L 92 05/15/19 07:14 05/15/19 07:14 05/15/19 07:14 05/15/19 07:14 05/15/19 07:14 Respiratory: normal respiratory effort, lungs clear to auscultation Cardiovascular: Rate/Rhythm: regular rate and regular rhythm Vessels: no JVD Extremities: + edema (Lower extremities consistent with her history of lymphedema, rather than heart failure) Gastrointestinal (Abdomen): normal bowel sounds, soft, nontender, no hepatosplenomegaly Neurologic: PERRL, EOMI, accommodation nl, no face palsy, no dysarthria Results & Data Vital Signs (Past 12 Hours) Vital Signs Temp Pulse Resp BP BP Pulse Ox 05/15/19 07:14 36.7 C 63 17 118/24 L 92 05/15/19 03:30 36.7 C 68 18 120/76 95 05/14/19 23:00 37.0 C 63 18 111/63 94 Laboratory Results CBC 05/15/19 Range/Units 05:25 WBC 5.82 (4.8-10.8) K/uL RBC 3.05 L (4.2-5.4) M/uL Hgb 10.7 L (12.0-16.0) g/dL Hct 32.1 L (37-47) % Plt Count 222 (130-400) K/uL Comprehensive Metabolic Panel 05/15/19 Range/Units 05:25 Sodium 139 (136-145) mmol/L Potassium 3.8 (3.5-5.1) mmol/L Chloride 103 (98-107) mmol/L Carbon Dioxide 32 (21-32) mmol/L BUN 25 H (7-18) mg/dl Creatinine 1.18 (0.6-1.2) mg/dl Glucose 103 H (70-99) mg/dl Calcium 8.5 (8.5-10.1) mg/dl Intake and Output 05/14/19 05/15/19 05/15/19 22:59 06:59 14:59 Intake Total 275 / 655 50 / 655 70 / 70 Output Total 200 / 1900 300 / 1900 Balance 75 / -1245 -250 / -1245 70 / 70 Intake: IV 70 / 70 Rocephin 2,000 mg In D5w 50 ml 70 / 70 @ 100 mls/hr IV DAILY [facility] Rx#: [id number] Oral 275 / 585 50 / 585 Output: Urine 200 / 1900 300 / 1900 Other: Weight 109.4 kg Medications Administered Current Inpatient Medications Acetaminophen (Tylenol) 1,300 mg PO BID [facility] Stop: 06/11/19 08:59 Last Admin: 05/15/19 08:20 Dose: 1,300 mg Documented by: Docusate Sodium (Colace) 200 mg PO BID [facility] Stop: 06/11/19 08:59 Last Admin: 05/15/19 08:20 Dose: 200 mg Documented by: Enoxaparin Sodium (Lovenox) 40 mg SQ QAM [facility] Stop: 06/13/19 11:59 Last Admin: 05/15/19 08:19 Dose: 40 mg Documented by: Ceftriaxone Sodium 2,000 mg/ (Dextrose) 70 mls @ 100 mls/hr IV DAILY [facility]; Protocol Stop: 05/19/19 08:59 Last Infusion: 05/15/19 09:30 Dose: Infused Documented by: Furosemide 40 mg/ Syringe 4 mls @ 4 mls/min IV [id number] [facility] Stop: 06/13/19 13:59 Last Admin: 05/15/19 08:21 Dose: 4 mls/min Documented by: Levothyroxine Sodium (Synthroid) 75 mcg PO DAILYBB [facility] Stop: 06/11/19 06:29 Last Admin: 05/15/19 05:17 Dose: 75 mcg Documented by: Magnesium Oxide (Mag-Ox) 400 mg PO QAM [facility] Stop: 06/11/19 08:59 Last Admin: 05/15/19 08:21 Dose: 400 mg Documented by: Meclizine HCl (Antivert) 25 mg PO TID PRN PRN Reason: Dizziness Stop: 06/10/19 22:24 Metoprolol Succinate (Toprol Xl) 12.5 mg PO QAM [facility] Stop: 06/11/19 08:59 Last Admin: 05/15/19 08:16 Dose: 12.5 mg Documented by: [facility]ivitamins ([facility]ivitamin Tab) [facility] [place]: 06/11/19 08:59 Last Admin: 05/15/19 08:16 Dose: 1 tab Documented by: Ondansetron HCl (Zofran) 4 mg IV Q6H PRN PRN Reason: Nausea Stop: 06/10/19 22:24 Polyethylene Glycol (Miralax Powder Packet) 17 gm PO DAILY PRN PRN Reason: Constipation Stop: 06/10/19 22:24 Potassium Chloride (Klor-Con M20) 20 meq PO BID [facility] Stop: 06/11/19 08:59 Last Admin: 05/12/19 07:57 Dose: 20 meq Documented by: Ranitidine HCl (Zantac) 150 mg PO HS [facility] Stop: 06/11/19 20:59 Last Admin: 05/14/19 20:07 Dose: 150 mg Documented by: Spironolactone (Aldactone) [facility] [place] Stop: 06/11/19 08:59 Last Admin: 05/15/19 08:17 Dose: 12.5 mg Documented by:
[2019-05-15] MEDS: LISINOPRIL 5 MG TAB PO SCH (11:59)
[2019-05-15] MEDS ORDERED: Nursing to Pharmacy Communication ONE (16:26)
[2019-05-16 06:12] LABS: BUN Creatinine Ratio 32.2 (10-20); Calcium 8.4 mg/dl (8.5-10.1); Creatinine Clr Calc Pharmacy 48.8 ml/min; Est GFR (African American) 61.8; Est GFR (Non-African American) 53.3; Potassium 3.5 mmol/L (3.5-5.1)
[2019-05-16] MEDS: LEVOTHYROXINE SODIUM 75 MCG TABLET PO SCH (06:46)
[2019-05-16] MEDS: FUROSEMIDE 40 MG in SYRINGE 0 ML IV SCH ×2 (06:46→13:55)
[2019-05-16] MEDS ORDERED: POTASSIUM CHLORIDE 20 MEQ TABCR PO STA (07:17)
[2019-05-16] MEDS: DOCUSATE SODIUM 100 MG CAP PO SCH ×2 (07:48→20:29)
[2019-05-16] MEDS: METOPROLOL SUCC 25MG EXT REL TAB PO SCH (07:48)
[2019-05-16] MEDS: MULTIVITAMIN TAB PO SCH (07:48)
[2019-05-16] MEDS: ACETAMINOPHEN 325 MG TAB PO SCH (07:49)
[2019-05-16] MEDS: SPIRONOLACTONE 25 MG TAB PO SCH (07:50)
[2019-05-16] MEDS: LISINOPRIL 5 MG TAB PO SCH (07:51)
[2019-05-16] MEDS: ENOXAPARIN INJ 40 MG/0.4 ML SYR SQ SCH (07:52)
[2019-05-16] MEDS: MAGNESIUM OXIDE 400 MG TAB PO SCH (07:52)
[2019-05-16] MEDS: cefTRIAXone SODIUM 2,000 MG in DEXTROSE 5% 50 ML IV SCH (08:15)
--- NOTE | 2019-05-16 11:29 | Cardiology Progress Note ---
Date of Service May 16, 2019 Assessment & Plan (1) NICM (nonischemic cardiomyopathy): Discontinued IV furosemide. Transition to oral torsemide [address] of prior to hospital buokx. Continue [employer] spironolactone and potassium doses of spironolactone 12.5 mg and KCL 20 meq BID. Lisinopril 5 mg added yesterday. If pt able to walk today, consider discharge to home this afternoon, or tomorrow. I will help arrange cardio follow up. Subjective CC: follow up exertional SOB Subjective: Regla is in good spirits. Her daughter accompanies her at the bedside. She denies chest pain. No dyspnea with walking to the hallway. Telemetry reveals SR with V pacing and occasional sinus tachycardia with LBBB. Review of Systems Review of Systems: All systems reviewed & are unremarkable except as noted in HPI & below Physical Exam Physical Exam: Temp Pulse Resp BP Pulse Ox 36.7 C 64 20 118/66 96 05/16/19 07:41 05/16/19 07:41 05/16/19 07:41 05/16/19 07:41 05/16/19 07:41 Constitutional: WD/WN, vitals as above Respiratory: normal respiratory effort, lungs clear to auscultation Cardiovascular: Rate/Rhythm: regular rate and regular rhythm lower extremities with appearance of lymphedema , improved compared to recent baseline. Neurologic: PERRL, EOMI, accommodation nl, no face palsy, no dysarthria Results & Data Vital Signs (Past 12 Hours) Vital Signs Temp Pulse Resp BP Pulse Ox 05/16/19 07:41 36.7 C 64 20 118/66 96 05/16/19 03:26 36.8 C 67 18 94 Laboratory Results Comprehensive Metabolic Panel 05/16/19 Range/Units 05:25 Sodium 139 (136-145) mmol/L Potassium 3.5 (3.5-5.1) mmol/L Chloride 102 (98-107) mmol/L Carbon Dioxide 31 (21-32) mmol/L BUN 31 H (7-18) mg/dl Creatinine 0.98 (0.6-1.2) mg/dl Glucose 100 H (70-99) mg/dl Calcium 8.4 L (8.5-10.1) mg/dl Intake and Output 05/15/19 05/16/19 05/16/19 22:59 06:59 14:59 Intake Total 1069.333 / 1139.333 70 / 70 Output Total 1100 / 3400 300 / 3400 Balance -30.667 / -2260.667 -300 / -2260.667 70 / 70 Intake: IV 709.333 / 779.333 70 / 70 Rocephin 2,000 mg In D5w 50 ml 70 / 70 @ 100 mls/hr IV DAILY [facility] Rx#: [id number] Oral 360 / 360 Output: Urine 1100 / 3400 300 / 3400 Other: Weight 106.3 kg Patient Weight 05/17/19 06:59 Weight 106.3 kg
--- NOTE | 2019-05-16 13:01 | Hospitalist Progress Note ---
Date of Service May 16, 2019 Assessment & Plan (1) Dyspnea on exertion: This is an 83-year-old female with a PMH of CAD, DM II, LBBB, systolic heart failure, CKD III, lymphedema and other medical problems listed below who presents with worsening dyspnea on exertion x1 week. -Chest x-ray without any acute cardiopulmonary abnormalities. Chest CTA without evidence of pulmonary embolus -as per cardiology evaluation on 05/12/19 that recently, patient has had a subtle decline in her ejection fraction. -cardiology management as described below (2) NICM (nonischemic cardiomyopathy): Acute on chronic combined systolic (congestive) and diastolic (congestive) heart failure -Patient underwent cardiac catheterization in 2011 ([facility] , Dr Qureshi) for symptom of chest discomfort, syncope, and left bundle branch block with preserved LVEF revealing nonobstructive CAD including a 20% proximal and 30% mid LAD lesion, and a 60% stenosis of the first diagonal branch of the LAD. -She was subsequently followed for several years for left bundle branch block with preserved LVEF, however in 2015 she developed progressive shortness of breath and an echocardiogram revealed a decline in her ejection fraction to the range of 20 to 25% that was refractory to medication therapy. -06/14/2016 patient had repeat invasive coronary angiography as well as hemodynamic assessment due to concerns of aortic valve stenosis in the setting of low ejection fraction, and the report describes nonobstructive CAD with a 50% mid LAD lesion with hemodynamic assessment of aortic stenosis revealed mild at worst moderate aortic valve stenosis -The patient therefore went on to have placement of a biventricular pacemaker (no AICD capability) in August 2015 due to what was felt to be a nonischemic cardiomyopathy in the setting of left bundle branch block -Device interrogation performed as an outpatient last month March, revealed appropriate biventricular pacing 97.9% the time -as per cardiology evaluation on 05/12/19 that recently, patient has had a subtle decline in her ejection fraction. Patient having complaints of dyspnea with exertion. Cardiology service recommend proceeding with definitive left and right heart catheterization with coronary angiography with Hemodynamic assessment of diastolic dysfunction and aortic valve stenosis to be performed on 05/13/19 -Cardiac cath performed on 05/13/19 and that The patient has pulmonary hypertension as well as systemic hypertension (Left ventricular function is severely reduced. Elevated pulmonary capillary wedge pressure, right ventricular and pulmonary pressures, as well as systemic hypertension was observed, consistent with systolic and diastolic dysfunction). Coronary anatomy is widely patent. There is no significant obstructive CAD, so it does not appear that her presenting symptoms of dyspnea on exertion due to angina. -during hospital stay, treatment to date had included IV diuretics of Lasix -continue oral metoprolol , continue spirolactone, lisinopril added on by cardiology service, IV Lasix being transitioned to torsemide -continue home dose spirolactone, continue Lasix as 40 mg IV BID (3) Aortic stenosis, moderate: -no severe aortic stenosis on cardiac cath on 05/13/19 (4) Pacemaker: Presence of pacemaker Left Bundle Branch block -from 6:03 to 6:08 PM on 05/13/19, patient appeared to have a run of ventricular tachycardia. as per nurse, this started when patient was ambulating to bathroom, as per patient she went to the bathroom and then bear down, she denied of having any symptoms, 12 lead EKG performed showed heart rate and rhythm back at baseline. on exam, patient appeared comfortable and heart rate at baseline. nurse showed telemetry rhythm strip to cardiology [facility] Danielle Sullivan. he recommend pace maker interrogation -again around 9 AM on 05/14/19 patient recorded to have runs of tachycardia and again was asymptomatic -as per cardiology Dr. Heredia evaluation on 05/14/19: Her device was interrogated revealing appropriate function without significant arrhythmia. She is biventricular paced 89% the time, when accounting for time which she is left ventricular paced she is receiving cardiac resynchronization therapy 98to 99% the time. Her generator longevity is stable at 3 years -at this time the periods of tachycardia are being attributed to left bundle branch block which patient is known to have (5) Hypothyroidism: Continue levothyroxine (6) UTI due to Klebsiella species: -urine culture with porter sensitive Klebsiella pneumoniae -discussed with patient about possible colonization given Klebsiella pneumoniae in urine in May 2018. However, patient did have normal 02/04/19 urine analysis -started ceftriaxone 2 grams daily for urinary tract infection on 05/13/19, continue ceftriaxone (7) Diabetes mellitus, type II: HbA1c of 6.1 in February 2019 -Not on diabetic medications as patient's diabetes is diet controlled -continue Carb consistent diet Obesity with BMI 47.8 -PT/OT evaluations DVT Ppx: Lovenox 40 mg daily Code status: FULL CODE PCP: Kennedy Daughter [phone] Daughter [phone] Subjective Patient was bale to ambulate further but at the end of her walk, she was feeling labored breathing. Patient currently sitting at rest on the bed. no shortness of breath at rest. breathing is currently not labored. no chest pain. no palpitations. no abdominal pain. no vomiting. no lightheadedness. no dizziness. Physical Exam Constitutional: + obese and comfortable Eyes: PERRL, conjunctivae normal, anicteric sclerae EOM intact bilaterally ENMT: external ear and nose normal, oropharynx normal Neck: normal visual inspection Respiratory: normal respiratory effort, lungs clear to auscultation Cardiovascular: Rate/Rhythm: regular rate and regular rhythm Gastrointestinal (Abdomen): normal bowel sounds, soft, nontender, no hepatosplenomegaly Musculoskeletal: Head/Neck/Chest: normocephalic and head atraumatic Extremities: + foot abnormality (bilateral pedal edema) Neurologic: PERRL, EOMI, accommodation nl, no face palsy, no dysarthria Psychiatric: A+Ox3, euthymic affect Results & Data Vital Signs (Past 12 Hours) Vital Signs Temp Pulse Resp BP Pulse Ox 05/16/19 11:43 36.5 C 95 H 20 116/73 93 05/16/19 07:41 36.7 C 64 20 118/66 96 05/16/19 03:26 36.8 C 67 18 94
[2019-05-16] MEDS ORDERED: ACETAMINOPHEN 325 MG TAB PO PRN (13:02)
[2019-05-17] MEDS: LEVOTHYROXINE SODIUM 75 MCG TABLET PO SCH (05:54)
[2019-05-17] MEDS ORDERED: TORSEMIDE 10 MG TAB PO SCH (09:00)
[2019-05-17] MEDS: MULTIVITAMIN TAB PO SCH (09:13)
[2019-05-17] MEDS: METOPROLOL SUCC 25MG EXT REL TAB PO SCH (09:13)
[2019-05-17] MEDS: DOCUSATE SODIUM 100 MG CAP PO SCH (09:14)
[2019-05-17] MEDS: LISINOPRIL 5 MG TAB PO SCH (09:15)
[2019-05-17] MEDS: SPIRONOLACTONE 25 MG TAB PO SCH (09:15)
[2019-05-17] MEDS: MAGNESIUM OXIDE 400 MG TAB PO SCH (09:16)
[2019-05-17] MEDS: ENOXAPARIN INJ 40 MG/0.4 ML SYR SQ SCH (09:16)
[2019-05-17 09:26] LABS: Basophils # (auto) 0.03 K/uL (0-0.2); Basophils % (auto) 0.5 %; Eosinophils # (auto) 0.07 K/uL (0-0.5); Eosinophils % (auto) 1.1 %; Hematocrit (blood only) 35.2 % (37-47); Hemoglobin 11.8 g/dL (12.0-16.0); Immature Granulocytes # (auto) 0.01 K/uL (0.00-0.02); Immature Granulocytes % (auto) 0.2 %; Lymphocytes # (auto) 1.54 K/uL (1.2-3.4); Lymphocytes % (auto) 23.7 %; Mean Corpuscular Hemoglobin 35.6 pg (25-34); Mean Corpuscular Volume 106.3 fL (80-100); Mean Platelet Volume 9.2 fL (7.4-10.4); Monocytes # (auto) 0.58 K/uL (0.11-0.59); Monocytes % (auto) 8.9 %; Neutrophils # (auto) 4.26 K/uL (1.4-6.5); Neutrophils % (auto) 65.6 %; Platelet Count 225 K/uL (130-400); RDW Coefficient of Variation 13.7 % (11.5-14.5); RDW Standard Deviation 52.8 fL (36.4-46.3); Red Blood Count 3.31 M/uL (4.2-5.4); White Blood Count 6.49 K/uL (4.8-10.8)
[2019-05-17 09:38] LABS: Mean Corpuscular Hgb Conc 33.5 g/dL (32-36)
[2019-05-17 09:43] LABS: BUN Creatinine Ratio 32.3 (10-20); Calcium 9.1 mg/dl (8.5-10.1); Creatinine Clr Calc Pharmacy 41.3 ml/min; Est GFR (African American) 51.5; Est GFR (Non-African American) 44.4; Potassium 4.1 mmol/L (3.5-5.1)
--- NOTE | 2019-05-17 10:40 | Cardiology Progress Note ---
Date of Service May 17, 2019 Assessment & Plan (1) Dyspnea on exertion: (2) NICM (nonischemic cardiomyopathy): Dyspnea on exertion due to acute on chronic combined systolic and diastolic heart failure. Patient stable for discharge. Her prior to hospital dose of Bumex is to be replaced with torsemide 20 mg by mouth daily. Lisinopril has been added. Continue prior to hospital dose of Aldactone 12.5 mg daily. Continue potassium chloride 20 mEq twice daily. Continue metoprolol succinate 12.5 mg daily. I will contact office to arrange follow up . Subjective Chief complaint: Follow-up shortness of breath Subjective: Patient feeling well. Telemetry reveals stable findings. She is eager for discharge. Review of Systems Review of Systems: All systems reviewed & are unremarkable except as noted in HPI & below Physical Exam Physical Exam: Temp Pulse Resp BP Pulse Ox 36.7 C 64 18 109/63 92 05/17/19 07:28 05/17/19 08:00 05/17/19 07:28 05/17/19 07:28 05/17/19 07:28 Constitutional: WD/WN, vitals as above Respiratory: normal respiratory effort, lungs clear to auscultation Cardiovascular: Rate/Rhythm: regular rhythm Heart Sounds: + murmur (I/ systolic murmur) Vessels: no JVD Extremities: + edema (Findings are consistent with her chronic history of lymphedema, without significant superimposed edema.) Neurologic: PERRL, EOMI, accommodation nl, no face palsy, no dysarthria Results & Data Vital Signs (Past 12 Hours) Vital Signs Temp Pulse Pulse Resp BP BP Pulse Ox 05/17/19 08:00 64 05/17/19 07:28 36.7 C 64 18 109/63 92 05/17/19 03:55 36.7 C 99 H 96/59 L 93 05/16/19 23:00 36.7 C 65 18 160/75 H 94
[2019-05-17] MEDS: cefTRIAXone SODIUM 2,000 MG in DEXTROSE 5% 50 ML IV SCH (11:21)
[2019-05-17] MEDS: POTASSIUM CHLORIDE 20 MEQ TABCR PO SCH (11:23)
--- NOTE | 2019-05-17 12:25 | Hospitalist Progress Note ---
Date of Service May 17, 2019 Assessment & Plan (1) Dyspnea on exertion: This is an 83-year-old female with a PMH of CAD, DM II, LBBB, systolic heart failure, CKD III, lymphedema and other medical problems listed below who presents with worsening dyspnea on exertion x1 week. -Chest x-ray without any acute cardiopulmonary abnormalities. Chest CTA without evidence of pulmonary embolus -as per cardiology evaluation on 05/12/19 that recently, patient has had a subtle decline in her ejection fraction. -cardiology management as described below (2) NICM (nonischemic cardiomyopathy): Acute on chronic combined systolic (congestive) and diastolic (congestive) heart failure -Patient underwent cardiac catheterization in 2011 ([facility] , Dr Qureshi) for symptom of chest discomfort, syncope, and left bundle branch block with preserved LVEF revealing nonobstructive CAD including a 20% proximal and 30% mid LAD lesion, and a 60% stenosis of the first diagonal branch of the LAD. -She was subsequently followed for several years for left bundle branch block with preserved LVEF, however in 2015 she developed progressive shortness of breath and an echocardiogram revealed a decline in her ejection fraction to the range of 20 to 25% that was refractory to medication therapy. -06/14/2016 patient had repeat invasive coronary angiography as well as hemodynamic assessment due to concerns of aortic valve stenosis in the setting of low ejection fraction, and the report describes nonobstructive CAD with a 50% mid LAD lesion with hemodynamic assessment of aortic stenosis revealed mild at worst moderate aortic valve stenosis -The patient therefore went on to have placement of a biventricular pacemaker (no AICD capability) in August 2015 due to what was felt to be a nonischemic cardiomyopathy in the setting of left bundle branch block -Device interrogation performed as an outpatient last month March, revealed appropriate biventricular pacing 97.9% the time -as per cardiology evaluation on 05/12/19 that recently, patient has had a subtle decline in her ejection fraction. Patient having complaints of dyspnea with exertion. Cardiology service recommend proceeding with definitive left and right heart catheterization with coronary angiography with Hemodynamic assessment of diastolic dysfunction and aortic valve stenosis to be performed on 05/13/19 -Cardiac cath performed on 05/13/19 and that The patient has pulmonary hypertension as well as systemic hypertension (Left ventricular function is severely reduced. Elevated pulmonary capillary wedge pressure, right ventricular and pulmonary pressures, as well as systemic hypertension was observed, consistent with systolic and diastolic dysfunction). Coronary anatomy is widely patent. There is no significant obstructive CAD, so it does not appear that her presenting symptoms of dyspnea on exertion due to angina. -during hospital stay, treatment had included included IV diuretics of Lasix and then subsequently transitioned to torsemide with addition of lisinopril 05/17/19 Patient was able to ambulate without dyspnea today. the telemetry recorded episode of tachycardia during walking. Patient denies symptoms. Patient's heart rate normal at rest. She did not feel short of breath. No lightheadedness. No dizziness. no nausea. discussed with Dr. Herdeia in regards to telemetry and he reported that as long as patient is currently asymptomatic that patient can be discharged from hospital. Dr. Heredia discussed patient's left bundle branch block and that patient's heart rates can be 130s on exertion but she has intolerance to excessive beta barry medications Discharge instructions: -Patient should take lisinopril 5 mg daily Patient should take torsemide 20 mg daily instead of bumetanide when at home Patient should avoid more than 2000 grams of acetaminophen daily, patient may take acetaminophen 325 mg every 6 hours as needed for fever or pain Patient should take Cephalexin 500 mg every 12 hours for 2 more days to complete treatment of urinary tract infection Discharge medications sent electronically to [facility] [address] [place] [address] Francis Elizalde, [place] [id number] -Patient should have comprehensive metabolic panel and urine analysis repeated by family medical doctor on next visit -Patient should have follow up with cardiology clinic. Dr. Heredia discussed in his notes that he will help with coordination. Hospitalist called clinic appointment line and they will send message to cardiology clinic to set up earlier cardiology follow up than currently active and previously scheduled June cardiology appointment -Scheduled follow ups 05/20/2019 12:30 PM Provider Susanna Neal [facility] [employer] Psychologist Department [facility] 05/24/2019 3:00 PM Provider Verónica Benavides MD Department Internal Medicine [facility] 07/13/2019 10:30 AM Provider Hermann Heredia DO Department Cardiology [facility] 08/04/2019 11:30 AM Provider Pacer Clinic [facility] Department Cardiology, [facility] (3) Aortic stenosis, moderate: -no severe aortic stenosis on cardiac cath on 05/13/19 (4) Pacemaker: Presence of pacemaker Left Bundle Branch block -from 6:03 to 6:08 PM on 05/13/19, patient appeared to have a run of ventricular tachycardia. as per nurse, this started when patient was ambulating to bathroom, as per patient she went to the bathroom and then bear down, she denied of having any symptoms, 12 lead EKG performed showed heart rate and rhythm back at baseline. on exam, patient appeared comfortable and heart rate at baseline. nurse showed telemetry rhythm strip to cardiology Sigrid Sullivan. he recommend pace maker interrogation -again around 9 AM on 05/14/19 patient recorded to have runs of tachycardia and again was asymptomatic -as per cardiology Dr. Heredia evaluation on 05/14/19: Her device was interrogated revealing appropriate function without significant arrhythmia. She is biventricular paced 89% the time, when accounting for time which she is left ventricular paced she is receiving cardiac resynchronization therapy 98to 99% the time. Her generator longevity is stable at 3 years -at this time the periods of tachycardia are being attributed to left bundle branch block which patient is known to have (5) Hypothyroidism: Continue levothyroxine (6) UTI due to Klebsiella species: -urine culture with porter sensitive Klebsiella pneumoniae -discussed with patient about possible colonization given Klebsiella pneumoniae in urine in May 2018. However, patient did have normal 02/04/19 urine analysis -started ceftriaxone 2 grams daily for urinary tract infection on 05/13/19 to 05/17/19 -Patient should take Cephalexin 500 mg every 12 hours for 2 more days to complete treatment of urinary tract infection (7) Diabetes mellitus, type II: HbA1c of 6.1 in February 2019 -Not on diabetic medications as patient's diabetes is diet controlled -continue Carb consistent diet Obesity with BMI 47.8 -has been evaluated by PT/OT evaluations DVT Ppx: Lovenox 40 mg daily Code status: FULL CODE PCP: Kennedy Daughter [phone] Daughter [phone] Discharge Diagnosis: Dyspnea on exertion; nonischemic cardiomyopathy; Acute on chronic combined systolic (congestive) and diastolic (congestive) heart failure; moderate Aortic stenosis, Left Bundle Branch Block, Urinary tract infection due to Klebsiella species Subjective Patient was able to ambulate without dyspnea today. the telemetry recorded episode of tachycardia during walking. Patient denies symptoms. Patient's heart rate normal at rest. She did not feel short of breath. No lightheadedness. No dizziness. no nausea. discussed with Dr. Heredia in regards to telemetry and he reported that as long as patient is currently asymptomatic that patient can be discharged from hospital. Dr. Heredia discussed patient's left bundle branch block and that patient's heart rates can be 130s on exertion but she has intolerance to excessive beta barry medications. Physical Exam Constitutional: + obese and comfortable Eyes: PERRL, conjunctivae normal, anicteric sclerae EOM intact bilaterally ENMT: external ear and nose normal, oropharynx normal Neck: normal visual inspection Respiratory: normal respiratory effort, lungs clear to auscultation Cardiovascular: Rate/Rhythm: regular rate and regular rhythm Gastrointestinal (Abdomen): normal bowel sounds, soft, nontender, no he patosplenomegaly Musculoskeletal: Head/Neck/Chest: normocephalic and head atraumatic Extremities: + foot abnormality (bilateral pedal edema) Neurologic: PERRL, EOMI, accommodation nl, no face palsy, no dysarthria Psychiatric: A+Ox3, euthymic affect Results & Data Vital Signs (Past 12 Hours) Vital Signs Temp Pulse Pulse Resp BP BP Pulse Ox 05/17/19 12:08 36.8 C 78 16 105/75 92 05/17/19 08:00 64 05/17/19 07:28 36.7 C 64 18 109/63 92 05/17/19 03:55 36.7 C 99 H 96/59 L 93
--- NOTE | 2019-05-17 12:34 | Discharge Summary ---
Date of Service May 17, 2019 Admission HPI Per Admitting Provider This is an 83-year-old female with a PMH of CAD, DM II, LBBB, systolic heart failure, CKD III, lymphedema and other medical problems listed below who presents with worsening dyspnea on exertion x1 week. Patient's family noted that she has become much more short of breath in the past few days, hardly able to make it the 3 steps from chair to bed without becoming dyspneic. Has also been paler and more fatigued than usual. No chest pain. Denies any fever, chills, lightheadedness, visual changes, palpitations, wheezing, nausea, vomiting, abdominal pain, dysuria or diarrhea. Has chronic constipation but has been moving bowels regularly with stool softeners. Has chronic lymphedema that she notes is slightly worse than usual. Also feels like she has more weight in her abdomen than usual. Was seen in cardiology clinic today and was sent to ED for further evaluation and concern for volume overload versus worsening aortic stenosis. In ED, was found to be afebrile and hemodynamically stable. No leukocytosis or electrolyte abnormalities on lab work. Troponin normal. Chest x-ray without any acute cardiopulmonary abnormalities. Chest CTA without evidence of pulmonary embolus. Admission Exam Per Admitting Provider General Appearance: WD/WN, vitals as above, NAD, conversing easily, morbidly obese Head: normocephalic, atraumatic Eyes: normal inspection, PERRL, conjunctivae normal, anicteric sclerae ENT: external ear and nose normal, oropharynx normal Neck: trachea midline, no thyromegaly normal visual inspection Respiratory: normal respiratory effort, lungs clear to auscultation, no wheeze, rales, rhonchi. Normal insp/exp effort, no accessory muscle use Cardiovascular: regular rate, rhythm, III/ systolic murmur, normal peripheral pulses. Vessels: no JVD or carotid bruit Chest: normal inspection of chest Abdomen/GI: normal bowel sounds, soft, nontender, no hepatosplenomegaly Extremities/Musculoskelatal: no cyanosis or clubbing, BLE edema consistent with lymphedema, extremities motor strength 5/5 Neurologic: PERRL, EOMI, accommodation nl, no face palsy, no dysarthria CN's II-XI intact bilaterally and moves all extremities Psychiatric: A+Ox3, euthymic affect Skin: no rashes, + pale, warm/dry Principal Diagnosis Dyspnea on exertion; nonischemic cardiomyopathy; Acute on chronic combined systolic (congestive) and diastolic (congestive) heart failure; moderate Aortic stenosis, Left Bundle Branch Block, Urinary tract infection due to Klebsiella species Discharge Exam Constitutional + obese and comfortable Eyes PERRL, conjunctivae normal, anicteric sclerae EOM intact bilaterally ENMT external ear and nose normal, oropharynx normal Neck normal visual inspection Respiratory normal respiratory effort, lungs clear to auscultation Cardiovascular Rate/Rhythm: regular rate and regular rhythm Gastrointestinal (Abdomen) normal bowel sounds, soft, nontender, no hepatosplenomegaly Musculoskeletal Head/Neck/Chest: normocephalic and head atraumatic Extremities: + foot abnormality (bilateral pedal edema) Neurologic PERRL, EOMI, accommodation nl, no face palsy, no dysarthria Psychiatric A+Ox3, euthymic affect Discharge Data Allergies Allergy/AdvReac Type Severity Reaction Status Date / Time aspirin Allergy Intermediate Hives, Verified 02/04/19 18:33 shortness of breath ibuprofen Allergy Intermediate Rash, hives Verified 02/04/19 18:33 Penicillins Allergy Intermediate Rash, hives Verified 02/04/19 18:33 adhesive Allergy Mild Reddened Verified 02/04/19 18:33 and sore skin prednisone AdvReac Mild Confusion Verified 05/13/19 15:01 Consultations 05/11/19 20:36 ED Decision to Admit Stat 05/11/19 22:25 Consult Case Management - Discharge Planning Routine 05/12/19 08:00 Consult Cardiology Routine Procedures Performed Operation Date: 05/13/19 09:30 Actual Procedures s Cineradiography w/Routine Exam - Carmine Calabrese DO p Cath, Right and Left Heart - Carmine Calabrese DO Ordered Studies 05/11/19 18:52 CT angio chest PE protocol Stat 05/13/19 06:40 CL Cath Imgs for PACS use only Routine Hospital Course (1) Dyspnea on exertion: This is an 83-year-old female with a PMH of CAD, DM II, LBBB, systolic heart failure, CKD III, lymphedema and other medical problems listed below who presents with worsening dyspnea on exertion x1 week. -Chest x-ray without any acute cardiopulmonary abnormalities. Chest CTA without evidence of pulmonary embolus -as per cardiology evaluation on 05/12/19 that recently, patient has had a subtle decline in her ejection fraction. -cardiology management as described below (2) NICM (nonischemic cardiomyopathy): Acute on chronic combined systolic (congestive) and diastolic (congestive) heart failure -Patient underwent cardiac catheterization in 2011 ([facility] , Dr Qureshi) for symptom of chest discomfort, syncope, and left bundle branch block with preserved LVEF revealing nonobstructive CAD including a 20% proximal and 30% mid LAD lesion, and a 60% stenosis of the first diagonal branch of the LAD. -She was subsequently followed for several years for left bundle branch block with preserved LVEF, however in 2015 she developed progressive shortness of breath and an echocardiogram revealed a decline in her ejection fraction to the range of 20 to 25% that was refractory to medication therapy. -06/14/2016 patient had repeat invasive coronary angiography as well as hemodynamic assessment due to concerns of aortic valve stenosis in the setting of low ejection fraction, and the report describes nonobstructive CAD with a 50% mid LAD lesion with hemodynamic assessment of aortic stenosis revealed mild at worst moderate aortic valve stenosis -The patient therefore went on to have placement of a biventricular pacemaker (no AICD capability) in August 2015 due to what was felt to be a nonischemic cardiomyopathy in the setting of left bundle branch block -Device interrogation performed as an outpatient last month March, revealed appropriate biventricular pacing 97.9% the time -as per cardiology evaluation on 05/12/19 that recently, patient has had a subtle decline in her ejection fraction. Patient having complaints of dyspnea with exertion. Cardiology service recommend proceeding with definitive left and right heart catheterization with coronary angiography with Hemodynamic assessment of diastolic dysfunction and aortic valve stenosis to be performed on 05/13/19 -Cardiac cath performed on 05/13/19 and that The patient has pulmonary hypertension as well as systemic hypertension (Left ventricular function is severely reduced. Elevated pulmonary capillary wedge pressure, right ventricular and pulmonary pressures, as well as systemic hypertension was observed, consistent with systolic and diastolic dysfunction). Coronary anatomy is widely patent. There is no significant obstructive CAD, so it does not appear that her presenting symptoms of dyspnea on exertion due to angina. -during hospital stay, treatment had included included IV diuretics of Lasix and then subsequently transitioned to torsemide with addition of lisinopril 05/17/19 Patient was able to ambulate without dyspnea today. the telemetry recorded episode of tachycardia during walking. Patient denies symptoms. Patient's heart rate normal at rest. She did not feel short of breath. No lightheadedness. No dizziness. no nausea. discussed with Dr. Heredia in regards to telemetry and he reported that as long as patient is currently asymptomatic that patient can be discharged from hospital. Dr. Heredia discussed patient's left bundle branch block and that patient's heart rates can be 130s on exertion but she has intolerance to excessive beta barry medications Discharge instructions: -Patient should take lisinopril 5 mg daily Patient should take torsemide 20 mg daily instead of bumetanide when at home Patient should avoid more than 2000 grams of acetaminophen daily, patient may take acetaminophen 325 mg every 6 hours as needed for fever or pain Patient should take Cephalexin 500 mg every 12 hours for 2 more days to complete treatment of urinary tract infection Discharge medications sent electronically to [address] [place] [address] -Patient should have comprehensive metabolic panel and urine analysis repeated by family medical doctor on next visit -Patient should have follow up with cardiology clinic. Dr. Heredia discussed in his notes that he will help with coordination. Hospitalist called clinic appointment line and they will send message to cardiology clinic to set up earlier cardiology follow up than currently active and previously scheduled June cardiology appointment -Scheduled follow ups 05/20/2019 12:30 PM Provider Susanna Neal [facility] Department [facility] 05/24/2019 3:00 PM Provider Verónica Benavides MD Department Internal M edicine [facility] 07/13/2019 10:30 AM Provider Hermann Heredia DO Department Cardiology [facility] 08/04/2019 11:30 AM Provider Pacer Clinic [facility] Department Cardiology, [facility] (3) Aortic stenosis, moderate: -no severe aortic stenosis on cardiac cath on 05/13/19 (4) Pacemaker: Presence of pacemaker Left Bundle Branch block -from 6:03 to 6:08 PM on 05/13/19, patient appeared to have a run of ventricular tachycardia. as per nurse, this started when patient was ambulating to bathroom, as per patient she went to the bathroom and then bear down, she denied of having any symptoms, 12 lead EKG performed showed heart rate and rhythm back at baseline. on exam, patient appeared comfortable and heart rate at baseline. nurse showed telemetry rhythm strip to cardiology Sigrid Sullivan. he recommend pace maker interrogation -again around 9 AM on 05/14/19 patient recorded to have runs of tachycardia and again was asymptomatic -as per cardiology Dr. Heredia evaluation on 05/14/19: Her device was interrogated revealing appropriate function without significant arrhythmia. She is biventricular paced 89% the time, when accounting for time which she is left ventricular paced she is receiving cardiac resynchronization therapy 98to 99% the time. Her generator longevity is stable at 3 years -at this time the periods of tachycardia are being attributed to left bundle branch block which patient is known to have (5) Hypothyroidism: Continue levothyroxine (6) UTI due to Klebsiella species: -urine culture with porter sensitive Klebsiella pneumoniae -discussed with patient about possible colonization given Klebsiella pneumoniae in urine in May 2018. However, patient did have normal 02/04/19 urine analysis -started ceftriaxone 2 grams daily for urinary tract infection on 05/13/19 to 05/17/19 -Patient should take Cephalexin 500 mg every 12 hours for 2 more days to complete treatment of urinary tract infection (7) Diabetes mellitus, type II: HbA1c of 6.1 in February 2019 -Not on diabetic medications as patient's diabetes is diet controlled -continue Carb consistent diet Obesity with BMI 47.8 -has been evaluated by PT/OT evaluations DVT Ppx: Lovenox 40 mg daily Code status: FULL CODE PCP: Kennedy Daughter [phone] Daughter [phone] Discharge Diagnosis: Dyspnea on exertion; nonischemic cardiomyopathy; Acute on chronic combined systolic (congestive) and diastolic (congestive) heart failure; moderate Aortic stenosis, Left Bundle Branch Block, Urinary tract infection due to Klebsiella species Total Time Total Time Spent Total Time Spent (In Minutes): 40 minutes Total Time Includes: Examination of the Patient, Discharge Planning, Medication Reconciliation and Communication With Other Providers Discharge Plan Discharge Items Patient Disposition: Home - Self-Care Reason For Visit: DYSPNEA ON EXERTION Discharge Diagnosis: Dyspnea on exertion; nonischemic cardiomyopathy; Acute on chronic combined systolic (congestive) and diastolic (congestive) heart failure; moderate Aortic stenosis, Left Bundle Branch Block, Urinary tract infection due to Klebsiella species Condition on Discharge: Good Activity: Per Instructions section Non-emergency contact: Primary Care Provider and Clinical Appeals Rn Call non-emergency contact if: you have any medication questions Follow-up/Referrals: Verónica Benavides MD [Primary Care Provider] - Diet: Carb Consistent or DM2, Heart Healthy and Low Sodium (2gm) Addtl Attending Provider Instructions: Patient should take lisinopril 5 mg daily Patient should take torsemide 20 mg daily instead of bumetanide when at home Patient should avoid more than 2000 grams of acetaminophen daily, patient may take acetaminophen 325 mg every 6 hours as needed for fever or pain Patient should take Cephalexin 500 mg every 12 hours for 2 more days to complete treatment of urinary tract infection Discharge medications sent electronically to [facility] [address] [place] [address] [place], [place] [id number] Patient should have comprehensive metabolic panel and urine analysis repeated by family medical doctor on next visit Patient should have follow up with cardiology clinic. Dr. Heredia discussed in his notes that he will help with coordination. Hospitalist called clinic appointment line and they will send message to cardiology clinic to set up earlier cardiology follow up than currently active and previously scheduled November cardiology appointment Scheduled follow ups 05/20/2019 12:30 PM Provider Susanna Neal [facility] [employer] [facility] Department [facility] 05/24/2019 3:00 PM Provider Verónica Benavides MD Department Internal Medicine [facility] 07/13/2019 10:30 AM Provider Hermann Heredia DO Department Cardiology [facility] 08/04/2019 11:30 AM Provider [facility] Department Cardiology, [facility] Pending Studies at Discharge: No Stand-Alone Forms: [facility] Medications and DC Order Prescriptions: New torsemide 10 mg Tablet 20 mg PO QAM 30 Days Qty: 60 RF: 0 lisinopril [Zestril] 5 mg Tablet 5 mg PO QAM 30 Days Qty: 30 RF: 0 acetaminophen 325 mg tablet 325 mg PO Q6H PRN (Reason: fever or pain) 5 Days Qty: 20 RF: 0 cephalexin 500 mg capsule 500 mg PO Q12H 2 Days Qty: 4 RF: 0 Continued multivitamin Tablet 1 tab PO QAM RF: 0 spironolactone [Aldactone] 25 mg Tablet 12.5 mg PO QAM RF: 0 levothyroxine 75 mcg Tablet 75 mcg PO QAM RF: 0 potassium chloride 20 mEq Tablet,Er Particles/Crystals 20 meq PO BID RF: 0 magnesium oxide 400 mg (241.3 mg magnesium) Tablet 400 mg PO QAM RF: 0 meclizine 25 mg Tablet 25 mg PO TID PRN (Reason: Dizziness) RF: 0 metoprolol succinate [Toprol XL] 25 mg Tablet Extended Release 24 Hr 12.5 mg PO QAM RF: 0 Glucosamine Chondroitin 550-30-1 mg Capsule 1 cap PO QAM RF: 0 sennosides [Senna Lax] 8.6 mg Tablet 16.8 mg PO BID PRN (Reason: Constipation) RF: 0 ranitidine HCl 150 mg capsule 150 mg PO HS RF: 0 docusate sodium [Colace] 100 mg Capsule 200 mg PO BID RF: 0 Discontinued acetaminophen [Tylenol Arthritis Pain] 650 mg Tablet Extended Release 1,300 mg PO BID RF: 0 bumetanide 1 mg Tablet 1 mg PO QAM RF: 0 Discharge Orders: Discharge Order (Routine); Ordered 05/17/19 Ordered By: Hector Timmons Admission Data Admit Date/Time: 05/13/19 06:51 Attending Provider: Hector Timmons Admit Provider: Asif Rogel Primary Care Provider: Verónica Benavides Other Providers: Carmine Calabrese ; Yeyo Medina
== END 2019-05-17 14:30 | disposition home or self-care (01) | DRG 286 ==
LOC: ED 17:38 → 2S 17:38 → SUATTDRO 21:22 → 2S 21:58
DX: I44.7 Left bundle-branch block, unspecified; I42.9 Cardiomyopathy, unspecified; Z88.6 Allergy status to analgesic agent; Z82.49 Family history of ischemic heart disease and other diseases of the circulatory system; E11.22 Type 2 diabetes mellitus with diabetic chronic kidney disease; Z88.0 Allergy status to penicillin; Z90.710 Acquired absence of both cervix and uterus; Z90.49 Acquired absence of other specified parts of digestive tract; Z68.42 Body mass index [BMI] 45.0-49.9, adult; I50.43 Acute on chronic combined systolic (congestive) and diastolic (congestive) heart failure; Z95.0 Presence of cardiac pacemaker; N18.3 Chronic kidney disease, stage 3 (moderate); E03.9 Hypothyroidism, unspecified; Z83.3 Family history of diabetes mellitus; I13.0 Hypertensive heart and chronic kidney disease with heart failure and stage 1 through stage 4 chronic kidney disease, or unspecified chronic kidney disease; I89.0 Lymphedema, not elsewhere classified; I47.2 Ventricular tachycardia; I25.10 Atherosclerotic heart disease of native coronary artery without angina pectoris; E66.9 Obesity, unspecified; N39.0 Urinary tract infection, site not specified; Z96.653 Presence of artificial knee joint, bilateral

== ENCOUNTER 2021-05-12 01:37 | Inpatient (IN) ==
[2021-05-12 03:52] LABS: Basophils # (auto) 0.02 K/uL (0-0.2); Basophils % (auto) 0.3 %; Eosinophils # (auto) 0.01 K/uL (0-0.5); Eosinophils % (auto) 0.1 %; Hematocrit (blood only) 35.7 % (37-47); Hemoglobin 11.9 g/dL (12.0-16.0); Immature Granulocytes # (auto) 0.03 K/uL (0.00-0.02); Immature Granulocytes % (auto) 0.4 %; Lymphocytes # (auto) 1.65 K/uL (1.2-3.4); Lymphocytes % (auto) 22.6 %; Mean Corpuscular Hemoglobin 35.3 pg (25-34); Mean Corpuscular Hgb Conc 33.3 g/dL (32-36); Mean Corpuscular Volume 105.9 fL (80-100); Monocytes # (auto) 0.89 K/uL (0.11-0.59); Monocytes % (auto) 12.2 %; Neutrophils # (auto) 4.71 K/uL (1.4-6.5); Neutrophils % (auto) 64.4 %; Platelet Count 244 K/uL (130-400); RDW Coefficient of Variation 13.9 % (11.5-14.5); Red Blood Count 3.37 M/uL (4.2-5.4); White Blood Count 7.31 K/uL (4.8-10.8)
[2021-05-12 04:11] LABS: Alanine Aminotransferase 14 U/L (12-78); Albumin Level 3.4 gm/dl (3.4-5.0); Aspartate Aminotransferase 17 U/L (15-37); BUN Creatinine Ratio 17.1 (10-20); Blood Urea Nitrogen 18 mg/dl (7-18); Calcium 8.5 mg/dl (8.5-10.1); Carbon Dioxide 25 mmol/L (21-32); Chloride 104 mmol/L (98-107); Est GFR (African American) 56.1 ml/min; Est GFR (Non-African American) 48.4 ml/min; Glucose 143 mg/dl (70-99); Lipase 64 U/L (73-393); Magnesium 1.7 mg/dl (1.8-2.4); Potassium 3.6 mmol/L (3.5-5.1); Sodium 134 mmol/L (136-145)
[2021-05-12 04:17] LABS: Albumin Globulin Ratio 0.9 (0.9-2); Alkaline Phosphatase 94 U/L (45-117); Bilirubin,Total 0.6 mg/dl (0.2-1); Globulin 3.8 gm/dl (2.5-4.0); NT Pro B Type Natriuretic Pept 687 pg/ml (0-1800); Total Protein 7.2 gm/dl (6.4-8.2); Troponin I 0.019 ng/ml (0-0.045)
--- NOTE | 2021-05-12 04:17 | Emergency Department Note ---
History of Present Illness General Chief complaint: Fall Stated complaint: FALL w/ rt. HEEL AND ANKLE PAIN; lt TOE PAIN Time Seen by Provider: 05/12/21 01:40 Source: patient and family Mode of arrival: EMS Limitations: no limitations History of Present Illness Provider complaint: Fall, weakness, cough Onset (ago): day(s) 3 Maximum Pain Intensity: 4 Associated symptoms: + cough, + fever/chills, + loss of appetite, + malaise and + shortness of breath; no chest pain, no headaches or no nausea/vomiting Treatments prior to arrival: none This is an 85-year-old female brought in by EMS with family at bedside due to concern for multiple complaints. Family bedside reports patient had an episode of vomiting in the middle the night the other night, and the following day developed a bit of a cough. Patient states the cough is nonproductive. Family states she seemed to have decreased appetite in the next 2 days as well as increased fatigue. This evening then patient also fell. She denied head injury, although family did notice an abrasion to her right cheondoism. Patient complains of pain at the right heel and her left second toe. Patient denies any loss of consciousness. Patient denies any syncope or feeling dizzy/lightheaded. No use of antiplatelet or anticoagulation therapy. Patient does report of pacemaker. No other recent illness or known sick contacts per family. Pt seen during a time of high acuity and national emergency pandemic while wearing PPE. Home Medications Medication Instructions Recorded Confirmed Type magnesium oxide 400 mg (241.3 mg 400 mg PO QAM 05/31/18 05/12/21 History magnesium) tablet metoprolol succinate 25 mg 12.5 mg PO QAM 05/31/18 05/12/21 History tablet,extended release 24 hr (Toprol XL) multivitamin 1 tab PO QAM 05/31/18 05/12/21 History potassium chloride 20 mEq 20 meq PO BID 05/31/18 05/12/21 History tablet,extended release(part/cryst) spironolactone 25 mg tablet 12.5 mg PO QAM 05/31/18 05/12/21 History (Aldactone) glucosamine sulf dipot 1 cap PO BID 02/04/19 05/12/21 History chlr,msm,chond 550 mg-C 30 mg-vandana 1 mg capsule (Glucosamine Chondroitin) docusate sodium 100 mg capsule 300 mg PO DAILY PRN 05/11/19 05/12/21 History (Colace) torsemide 20 mg tablet 20 mg PO QAM 10/12/19 05/12/21 History levothyroxine 88 mcg tablet 88 mcg PO QAM 05/12/21 05/12/21 History lisinopril 2.5 mg tablet 2.5 mg PO QAM 05/12/21 05/12/21 History Allergies Allergy/AdvReac Type Severity Reaction Status Date / Time aspirin Allergy Intermediate Hives, Verified 05/12/21 02:24 shortness of breath ibuprofen Allergy Intermediate Rash, hives Verified 05/12/21 02:24 Penicillins Allergy Intermediate Rash, hives Verified 05/12/21 02:24 adhesive Allergy Mild Reddened Verified 05/12/21 02:24 and sore skin ciprofloxacin AdvReac Intermediate Weakness Verified 05/12/21 02:24 prednisone AdvReac Mild Confusion Verified 05/12/21 02:24 Past Med/Surg History Medical History (Updated 05/14/21 @ 09:45 by Lilia Walker DO) Arthritis Diabetes mellitus, type II History of recurrent UTIs Hypothyroidism LBBB (left bundle branch block) Lymphedema NICM (nonischemic cardiomyopathy) Pacemaker Pneumonia Systolic heart failure Vertigo Surgical History History of hysterectomy History of knee replacement, total Hx of cholecystectomy Family History Other Diabetes Heart disease Hypertension Social History Smoking Status: Never smoker Second Hand Exposure: No; Hx Alcohol Use: No Hx Substance Use: No Preferred Language: Italian Communication Ability: Effective [employer]illery [employer] Required: No Beliefs That Will Affect Care: None marital status: / Current Living Situation: Alone Current Living Situation Comment: home alone, daughter lives next door current occupational status: retired How many Children do You have: 1 Other Information That Helps Us Care for You: Yes ([employer]) Feels Safe at Home: Yes Safety Concerns: Feels Safe At This Time Assistive Devices: Walker Assistive Devices Comment: compression device for lymphedema Review of Systems A total of 10 systems reviewed and were otherwise negative All systems reviewed & are unremarkable except as noted in HPI & below Physical Exam Vital Signs Vital Signs - 24 hr 05/12/21 01:37 Temperature 37.6 C H Temperature Source Oral Pulse Rate 91 H Respiratory Rate 18 Blood Pressure 147/96 H Blood Pressure Mean 113 Pulse Oximetry 90 Oxygen Delivery Method Room Air Sepsis Recent Fever Within 48 Hours Yes Sepsis New/Unexplained Change in Mental Status No Sepsis Action Taken by Nursing No Action Required GENERAL: alert, well appearing, well nourished, no distress, non-toxic, BMI>43 EYE EXAM: normal conjunctiva, PERRL and EOM's grossly intact OROPHARYNX: no exudate, no erythema, lips, buccal mucosa, and tongue normal and mucous membranes are moist NECK: supple, no nuchal rigidity, no adenopathy, non-tender LUNGS: Clear to auscultation. Normal chest wall mechanics, no w/r/r, frequent coarse cough noted during exam HEART: no murmurs, S1 normal and S2 normal ABDOMEN: abdomen soft, non-tender, normo-active bowel sounds, no masses, no rebound or guarding. BACK: Back is symmetrical on inspection and there is no deformity, no midline tenderness, no CVA tenderness. SKIN: no rashes and no bruising UPPER EXTREMITIES: upper extremities are grossly normal. FROM, nml pulses b/l. LOWER EXTREMITIES: chronic appearing b/l LE pitting edema. FROM, nml pulses b/l. Pain with palpation over the plantar aspect of the right heel, no obvious contusion or deformity. Pain with palpation of the left second toe, which patient states is chronically edematous, no evidence of ecchymosis. NEURO EXAM: Normal sensorium, cranial nerves II-XII grossly intact, normal speech, no gross weakness of arms, no gross weakness of legs. Gross sensation intact. Course Course 0556: Patient and daughter updated on results at bedside. Patient now with roseline lving right foot ecchymosis that is new compared to my initial exam. Patient unable to stand at bedside to use bedside commode due to pain in her feet and ankles. Will add additional imaging of foot due to evolving ecchymosis. Discussed additional inpatient evaluation due to symptoms, COVID, and inability to walk. Administered Medications Acetaminophen (Acetaminophen 325 Mg Tab) 650 mg PO Q4H PRN PRN Reason: Pain or Fever Stop: 06/11/21 15:26 Last Admin: 05/12/21 17:49 Dose: 650 mg Documented by: [id number] Ascorbic Acid (Ascorbic Acid 500 Mg Tab) 500 mg PO BID [facility] Stop: 06/12/21 20:59 Last Admin: 05/14/21 08:32 Dose: 500 mg Documented by: [id number] Admin: 05/13/21 20:23 Dose: 500 mg Documented by: [id number] Enoxaparin Sodium (Enoxaparin Inj 40 Mg/0.4 Ml Syr) 40 mg SQ Q12H BRENT Stop: 06/11/21 20:59 Last Admin: 05/14/21 08:34 Dose: 40 mg Documented by: [id number] Admin: 05/13/21 20:22 Dose: 40 mg Documented by: [id number] Admin: 05/13/21 08:25 Dose: 40 mg Documented by: [id number] Admin: 05/12/21 20:09 Dose: 40 mg Documented by: [id number] Glucosamine Sulfate (Glucosamine Sulfate 500 Mg Cap) 500 mg PO BID [facility] Stop: 06/11/21 20:59 Last Admin: 05/14/21 08:32 Dose: 500 mg Documented by: [id number] Admin: 05/13/21 20:22 Dose: 500 mg Documented by: [id number] Admin: 05/13/21 08:28 Dose: 500 mg Documented by: [id number] Admin: 05/12/21 21:12 Dose: 500 mg Documented by: [id number] Guaifenesin (Guaifenesin 600 Mg Tabcr) 600 mg PO Q12 [facility] Stop: 06/12/21 20:59 Last Admin: 05/14/21 08:32 Dose: 600 mg Documented by: [id number] Admin: 05/13/21 20:23 Dose: 600 mg Documented by: [id number] Guaifenesin/Dextromethorphan (Guaifenesin/Dextrom Syrup 200mg/20mg 10ml Udc) 10 ml PO Q6H PRN PRN Reason: Cough Stop: 06/11/21 18:45 Last Admin: 05/14/21 08:32 Dose: 10 ml Documented by: [id number] Remdesivir 100 mg/ Sodium (Chloride) 250 mls @ 250 mls/hr IV Q24H [facility]ENT; Protocol Stop: 05/16/21 12:59 Last Infusion: 05/13/21 16:43 Dose: 0 mls/hr Documented by: [id number] Admin: 05/13/21 12:54 Dose: 250 mls/hr Documented by: [id number] Dexamethasone 6 mg/ Syringe 1.5 mls @ 1 mls/min IV DAILY [facility] Stop: 05/22/21 15:44 Last Admin: 05/14/21 08:31 Dose: 1 mls/min Documented by: [id number] Admin: 05/13/21 08:20 Dose: 1 mls/min Documented by: [id number] Admin: 05/12/21 17:52 Dose: 1 mls/min Documented by: [id number] Ceftriaxone Sodium 2,000 mg/ (Dextrose) 70 mls @ 100 mls/hr IV Q24H [facility]ENT; Protocol Stop: 05/17/21 18:59 Last Infusion: 05/13/21 20:05 Dose: 0 mls/hr Documented by: [id number] Admin: 05/13/21 19:11 Dose: 100 mls/hr Documented by: [id number] Infusion: 05/12/21 20:20 Dose: 0 mls/hr Documented by: [id number] Admin: 05/12/21 19:24 Dose: 100 mls/hr Documented by: [id number] Insulin Aspart (Insulin Aspart 100 Units/Ml 3 Ml Pen) 0 units SC ACHS BRENT Stop: 06/11/21 15:26 Last Admin: 05/13/21 20:52 Dose: 1 units Documented by: [id number] Cosigned by: [id number] Admin: 05/13/21 17:03 Dose: 2 units Documented by: [id number] Cosigned by: [id number] Admin: 05/13/21 15:15 Dose: 2 units Documented by: [id number] Cosigned by: [id number] Admin: 05/13/21 08:18 Dose: Not Given Documented by: [id number] Admin: 05/12/21 20:04 Dose: 2 units Documented by: [id number] Cosigned by: [id number] Admin: 05/12/21 18:07 Dose: Not Given Documented by: [id number] Admin: 05/12/21 18:06 Dose: Not Given Documented by: [id number] Levothyroxine Sodium (Levothyroxine Sodium 88 Mcg Tablet) 88 mcg PO DAILYBB [facility] Stop: 06/11/21 15:26 Last Admin: 05/14/21 06:16 Dose: 88 mcg Documented by: [id number] Admin: 05/13/21 06:12 Dose: 88 mcg Documented by: [id number] Admin: 05/12/21 17:51 Dose: 88 mcg Documented by: [id number] Lisinopril (Lisinopril 2.5 Mg Tab) [facility] [place] Stop: 06/11/21 15:26 Last Admin: 05/14/21 08:32 Dose: 2.5 mg Documented by: [id number] Admin: 05/13/21 08:29 Dose: 2.5 mg Documented by: [id number] Admin: 05/12/21 17:51 Dose: 2.5 mg Documented by: [id number] Magnesium Oxide (Magnesium Oxide 400 Mg Tab) 400 mg PO [facility] Stop: 06/11/21 15:26 Last Admin: 05/14/21 08:33 Dose: 400 mg Documented by: [id number] Admin: 05/13/21 08:29 Dose: 400 mg Documented by: [id number] Admin: 05/12/21 17:50 Dose: 400 mg Documented by: [id number] Metoprolol Succinate (Metoprolol Succ 25mg Ext Rel Tab) 12.5 mg PO [facility] Stop: 06/11/21 15:26 Last Admin: 05/14/21 08:32 Dose: 12.5 mg Documented by: [id number] Admin: 05/13/21 08:29 Dose: 12.5 mg Documented by: [id number] Admin: 05/12/21 17:49 Dose: 12.5 mg Documented by: [id number] Multivitamins (Multivitamin Tab) 1 tab PO [facility] Stop: 06/11/21 15:26 Last Admin: 05/14/21 08:32 Dose: 1 tab Documented by: [id number] Admin: 05/13/21 08:30 Dose: 1 tab Documented by: [id number] Admin: 05/12/21 17:49 Dose: 1 tab Documented by: [id number] Potassium Chloride (Potassium Chloride Crtab 20 Meq Tabcr) 20 meq PO BID [facility] Stop: 06/11/21 15:26 Last Admin: 05/14/21 08:32 Dose: 20 meq Documented by: [id number] Admin: 05/13/21 20:23 Dose: 20 meq Documented by: [id number] Admin: 05/13/21 08:28 Dose: 20 meq Documented by: [id number] Admin: 05/12/21 20:09 Dose: 20 meq Documented by: [id number] Admin: 05/12/21 17:53 Dose: 20 meq Documented by: [id number] Sodium Chloride (Sodium Chloride 0.9% 10ml Flush) 30 ml IV Q24H [facility] Stop: 05/16/21 13:01 Last Admin: 05/13/21 12:54 Dose: 30 ml Documented by: [id number] Spironolactone (Spironolactone 12.5 Mg Tab) 12.5 mg PO [facility] Stop: 06/11/21 15:26 Last Admin: 05/14/21 08:33 Dose: 12.5 mg Documented by: [id number] Admin: 05/13/21 08:30 Dose: 12.5 mg Documented by: [id number] Admin: 05/12/21 17:52 Dose: 12.5 mg Documented by: [id number] Torsemide (Torsemide 20 Mg Tab) 20 mg PO [facility] Stop: 06/11/21 15:26 Last Admin: 05/14/21 08:33 Dose: 20 mg Documented by: [id number] Admin: 05/13/21 08:28 Dose: 20 mg Documented by: [id number] Admin: 05/12/21 17:52 Dose: 20 mg Documented by: [id number] Tramadol HCl (Tramadol Hcl 50 Mg Tablet) 50 mg PO Q4H PRN PRN Reason: Pain Stop: 06/11/21 18:45 Last Admin: 05/12/21 19:49 Dose: 50 mg Documented by: [id number] Vitamin D (Cholecalciferol 1,000 Units 25 Mcg Tab) 1,000 units PO [facility] Stop: 06/13/21 08:59 Last Admin: 05/14/21 08:33 Dose: 1,000 units Documented by: [id number] Zinc Sulfate (Zinc Sulfate 220 Mg Capsule) 220 mg PO [facility] Stop: 06/13/21 08:59 Last Admin: 05/14/21 08:33 Dose: 220 mg Documented by: [id number] Discontinued Medications Acetaminophen (Acetaminophen 325 Mg Tab) Confirm Administered Dose 650 mg .ROUTE .STK-MED ONE Stop: 05/12/21 05:44 Last Admin: 05/12/21 05:58 Dose: Not Given Documented by: [id number] Acetaminophen (Acetaminophen 325 Mg Tab) 650 mg PO NOW STA Stop: 05/12/21 05:45 Last Admin: 05/12/21 05:47 Dose: 650 mg Documented by: [id number] Acetaminophen (Acetaminophen 500 Mg Tab) Confirm Administered Dose 1,000 mg .ROUTE .STK-MED ONE Stop: 05/12/21 12:39 Last Admin: 05/12/21 12:45 Dose: 1,000 mg Documented by: [id number] Sodium Chloride (Nss 1000ml) 1,000 mls @ 125 mls/hr IV .Q8H [facility] Stop: 06/11/21 02:44 Last Admin: 05/12/21 14:01 Dose: Not Given Documented by: [id number] Infusion: 05/12/21 14:00 Dose: 0 mls/hr Documented by: [id number] Admin: 05/12/21 04:39 Dose: 125 mls/hr Documented by: [id number] Remdesivir 200 mg/ Sodium (Chloride) 250 mls @ 125 mls/hr IV ONE STA; Protocol Stop: 05/12/21 09:02 Last Infusion: 05/12/21 10:30 Dose: 0 mls/hr Documented by: [id number] Admin: 05/12/21 08:19 Dose: 125 mls/hr Documented by: [id number] Medical Decision Making Differential Diagnosis Differential diagnoses includes but is not limited to pneumonia, bronchitis, COPD/Asthma exacerbation, pneumothorax, pulmonary embolism, congestive heart failure, acute coronary syndrome Medical Records Attestation: I reviewed the patient's medical records. Home Medications Current Medication List: was personally reviewed by me Laboratory Data Attestation: I reviewed the patient's lab results. Result diagrams: 05/13/21 06:05 05/14/21 08:09 Lab Results 05/12/21 05/12/21 05/12/21 Range/Units 03:01 03:01 03:42 WBC 7.31 (4.8-10.8) K/uL RBC 3.37 L (4.2-5.4) M/uL Hgb 11.9 L (12.0-16.0) g/dL Hct 35.7 L (37-47) % MCV 105.9 H (80-100) fL MCH 35.3 H (25-34) pg MCHC 33.3 (32-36) g/dL RDW Std Deviation 54.0 H (36.4-46.3) fL RDW Coeff of Jon 13.9 (11.5-14.5) % Plt Count 244 (130-400) K/uL MPV 9.0 (7.4-10.4) fL Immature Gran % (Auto) 0.4 % Neut % (Auto) 64.4 % Lymph % (Auto) 22.6 % [place]zel % (Auto) 12.2 % Eos % (Auto) 0.1 % Baso % (Auto) 0.3 % Neut # (Auto) 4.71 (1.4-6.5) K/uL Lymph # (Auto) 1.65 (1.2-3.4) K/uL [place] # (Auto) 0.89 H (0.11-0.59) K/uL Eos # (Auto) 0.01 (0-0.5) K/uL Baso # (Auto) 0.02 (0-0.2) K/uL Immature Gran # (Auto) 0.03 H (0.00-0.02) K/uL Sodium (136-145) mmol/L Potassium (3.5-5.1) mmol/L Chloride (98-107) mmol/L Carbon Dioxide (21-32) mmol/L Anion Gap (3-11) BUN (7-18) mg/dl Creatinine (0.6-1.2) mg/dl Est Cr Clr Drug Dosing Est GFR ( Amer) ml/min Est GFR (Non-Af Amer) ml/min BUN/Creatinine Ratio (10-20) Glucose (70-99) mg/dl Calcium (8.5-10.1) mg/dl Magnesium (1.8-2.4) mg/dl Total Bilirubin (0.2-1) mg/dl AST (15-37) U/L ALT (12-78) U/L Alkaline Phosphatase (45-117) U/L Troponin I (0-0.045) ng/ml NT-Pro-B Natriuret Pep (0-1800) pg/ml Total Protein (6.4-8.2) gm/dl Albumin (3.4-5.0) gm/dl Globulin (2.5-4.0) gm/dl Albumin/Globulin Ratio (0.9-2) Lipase (73-393) U/L COVID-19 Eval Order Covid19 at [facility] SARS-CoV-2 (PCR) POSITIVE A* (Negative) 05/12/21 Range/Units 03:42 WBC (4.8-10.8) K/uL RBC (4.2-5.4) M/uL Hgb (12.0-16.0) g/dL Hct (37-47) % MCV (80-100) fL MCH (25-34) pg MCHC (32-36) g/dL RDW Std Deviation (36.4-46.3) fL RDW Coeff of Jon (11.5-14.5) % Plt Count (130-400) K/uL MPV (7.4-10.4) fL Immature Gran % (Auto) % Neut % (Auto) % Lymph % (Auto) % Wetzel % (Auto) % Eos % (Auto) % Baso % (Auto) % Neut # (Auto) (1.4-6.5) K/uL Lymph # (Auto) (1.2-3.4) K/uL Wetzel # (Auto) (0.11-0.59) K/uL Eos # (Auto) (0-0.5) K/uL Baso # (Auto) (0-0.2) K/uL Immature Gran # (Auto) (0.00-0.02) K/uL Sodium 134 L (136-145) mmol/L Potassium 3.6 (3.5-5.1) mmol/L Chloride 104 (98-107) mmol/L Carbon Dioxide 25 (21-32) mmol/L Anion Gap 5.0 (3-11) BUN 18 (7-18) mg/dl Creatinine 1.05 (0.6-1.2) mg/dl Est Cr Clr Drug Dosing Not Reportable Est GFR ( Amer) 56.1 ml/min Est GFR (Non-Af Amer) 48.4 ml/min BUN/Creatinine Ratio 17.1 (10-20) Glucose 143 H (70-99) mg/dl Calcium 8.5 (8.5-10.1) mg/dl Magnesium 1.7 L (1.8-2.4) mg/dl Total Bilirubin 0.6 (0.2-1) mg/dl AST 17 (15-37) U/L ALT 14 (12-78) U/L Alkaline Phosphatase 94 (45-117) U/L Troponin I 0.019 (0-0.045) ng/ml NT-Pro-B Natriuret Pep 687 (0-1800) pg/ml Total Protein 7.2 (6.4-8.2) gm/dl Albumin 3.4 (3.4-5.0) gm/dl Globulin 3.8 (2.5-4.0) gm/dl Albumin/Globulin Ratio 0.9 (0.9-2) Lipase 64 L (73-393) U/L COVID-19 Eval Order SARS-CoV-2 (PCR) (Negative) Imaging Data My Impression: X-ray: I interpreted the following studies. Chest: A single view study of the chest was reviewed and was negative for cardiomegaly, focal infiltrate, effusion, pulmonary edema, or wide mediastinum. Radiologist's Impression: Cervical Spine CT 05/12/21 02:33 CT OF THE CERVICAL SPINE WITHOUT CONTRAST CLINICAL HISTORY: chi, fall COMPARISON STUDY: Cervical spine CT October 19, 2013. TECHNIQUE: Helical axial images of the cervical spine were obtained without IV contrast. Sagittal and coronal reconstructions were viewed. Automated exposure control was utilized for the study. A dose lowering technique was utilized adhering to the principles of ALARA. FINDINGS: Alignment of the cervical spine is anatomic. Vertebral body heights are maintained. No acute cervical spine fracture or subluxation is present. There is no prevertebral edema. Facet joints are intact. Exam is mildly comprom ised by artifact. There is moderate multilevel degenerative disc disease and facet arthrosis. Extensive degenerative changes at the C1-C2 articulation are noted. IMPRESSION: No acute cervical spine fracture or subluxation. Exam mildly compromised by artifact. ACT 112: Negative or not required by law. Electronically signed by: Bruce Barba M.D. 05/12/2021 6:[address] 05/12/21 02:33 CT OF THE HEAD WITHOUT CONTRAST CLINICAL HISTORY: chi, fall COMPARISON STUDY: Head CT October 19, 2013. CT DOSE: 1043.08 mGy.cm TECHNIQUE: Helical axial images of the head were obtained without IV contrast. Automated exposure control was utilized for the study. A dose lowering technique was utilized adhering to the principles of ALARA. FINDINGS: No acute intracranial hemorrhage, midline shift or mass effect is present. White matter hypodensity suggests small vessel disease. The ventricular system is unremarkable. The basal cisterns are patent. No extra-axial collections are present. There are no findings to suggest acute dural sinus thrombosis or acute territorial infarct. No significant calvarial abnormalities are present. Visualized portions of the sinuses and mastoid air cells are clear. IMPRESSION: 1. No acute intracranial findings. 2. No calvarial fracture. ACT 112: Negative or not required by law. Electronically signed by: Bruce Barba M.D. 05/12/2021 6:[address] head: No ICH, mass-effect or edema. No skull fracture. Senescent changes with parenchymal 1 loss and probable chronic microvascular ischemia. Normal aeration of the visualized paranasal sinuses and mastoid air cells. Radiologist: Kristyn Keyes MD CT C-spine: No acute posttraumatic abnormality. Study is limited by patient motion. No fracture or subluxation. Bones are diffusely osteopenic. Maintenance of height of the vertebral bodies. Moderate multilevel degenerative changes. Prevertebral soft tissues unremarkable. Radiologist: Carmine Petty MD ECG Data Rate (beats per minute): 89 Rhythm: + other ECG Intervals/blocks: + IVCD and + Normal QT ECG [place]: + Right axis deviation ECG ST segments: + Nonspecific ST abnormalities Additional Comments: paced MDM Narrative Patient presents following a fall this evening but with recent evolving URI symptoms per daughter. Patient with increased fatigue, weakness, which may have contributed to the fall. Patient noted to have a cough and mild hypoxia at 90% initially which improved with oxygen. Labs sent, COVID send, CXR performed. CXR reassuring. Xray of pt's feet/ankle also performed due to pain from fall and were reassuring. Labs reassuring however COVID positive. Patient unable to walk and on repeat exam was noted to have evolving ecchymosis to the right plantar aspect of the foot. UA pending on this repeat exam and I discussed inpatient evaluation and tx with the pt and daughter who were in agreement. CAse discussed with hospitalist for additional evaluation, UA and CT R foot pending at that time. VS stable while in the ER. An order was placed for continuous cardiac monitoring. The monitor shows a rate of _80_ with __paced__ rhythm. Impression & Plan Cough, COVID-19, Acute foot pain, Fall Discharge Plan Visit Data Chief Complaint: Fall Stated Complaint: FALL w/ rt. HEEL AND ANKLE PAIN; lt TOE PAIN Discharge Problem: Cough, COVID-19, Acute foot pain, Fall Patient Disposition: Admitted As Inpatient Discharge Instructions Interventions: ED Discharge Assessment Last Done: 05/12/21 14:35 Discharge Problem: Acute foot pain Qualifiers: Laterality: unspecified laterality Qualified Code(s): M79.673 - Pain in unspecified foot Fall Qualifiers: Encounter type: initial encounter Qualified Code(s): W19.XXXA - Unspecified fall, initial encounter
[2021-05-12] MEDS: SODIUM CHLORIDE 0.9% 1000ML 1,000 ML IV SCH ×2 (04:39→14:01)
[2021-05-12] MEDS ORDERED: ACETAMINOPHEN 325 MG TAB ONE (05:43)
[2021-05-12] MEDS ORDERED: ACETAMINOPHEN 325 MG TAB PO STA (05:44)
--- NOTE | 2021-05-12 06:26 | CT Scan Report ---
CT OF THE HEAD WITHOUT CONTRAST CLINICAL HISTORY: chi, fall COMPARISON STUDY: Head CT October 19, 2013. CT DOSE: 1043.08 mGy.cm TECHNIQUE: Helical axial images of the head were obtained without IV contrast. Automated exposure con trol was utilized for the study. A dose lowering technique was utilized adhering to the principles o f ALARA. FINDINGS: No acute intracranial hemorrhage, midline shift or mass effect is present. White matter hyp odensity suggests small vessel disease. The ventricular system is unremarkable. The basal cisterns ar e patent. No extra-axial collections are present. There are no findings to suggest acute dural sinus thrombosis or acute territorial infarct. No significant calvarial abnormalities are present. Visualiz ed portions of the sinuses and mastoid air cells are clear. IMPRESSION: 1. No acute intracranial findings. 2. No calvarial fracture. ACT 112: Negative or not required by law. Electronically signed by: Bruce Barba M.D. 05/12/2021 6:25 AM
--- NOTE | 2021-05-12 06:29 | CT Scan Report ---
CT OF THE CERVICAL SPINE WITHOUT CONTRAST CLINICAL HISTORY: chi, fall COMPARISON STUDY: Cervical spine CT October 19, 2013. TECHNIQUE: Helical axial images of the cervical spine were obtained without IV contrast. Sagittal a nd coronal reconstructions were viewed. Automated exposure control was utilized for the study. A do se lowering technique was utilized adhering to the principles of ALARA. FINDINGS: Alignment of the cervical spine is anatomic. Vertebral body heights are maintained. No acut e cervical spine fracture or subluxation is present. There is no prevertebral edema. Facet joints are intact. Exam is mildly compromised by artifact. There is moderate multilevel degenerative disc dise ase and facet arthrosis. Extensive degenerative changes at the C1-C2 articulation are noted. IMPRESSION: No acute cervical spine fracture or subluxation. Exam mildly compromised by artifact. ACT 112: Negative or not required by law. Electronically signed by: Bruce Barba M.D. 05/12/2021 6:27 AM
[2021-05-12] MEDS ORDERED: REMDESIVIR 200 MG in SODIUM CHLORIDE 0.9% 210 ML IV STA (07:03)
--- NOTE | 2021-05-12 08:21 | CT Scan Report ---
CT foot RT wo con CLINICAL HISTORY: pain, trauma COMPARISON STUDY: Right foot radiographs performed earlier today. TECHNIQUE: Axial images of the right rib pain without IV contrast. Sagittal and coronal reconstructio ns were viewed. Automated exposure control was utilized for the study. A dose lowering technique was utilized adhering to the principles of ALARA. FINDINGS: Note is made of an acute minimally displaced fracture of the posterior medial aspect of the right calcaneus. No definite extension to the subtalar joint is noted. No additional acute fractures are identified within the right foot although its activity is significantly diminished given motion artifact. Tarsometatarsal joints are grossly intact. 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 No ac radha fracture of the distal right tibia or fibula is noted. There is mild right ankle and hindfoot sof t tissue swelling. No suspicious osseous lesions are noted. IMPRESSION: 1. Acute minimally displaced fracture the posterior medial aspect of the right calcaneus. 2. No additional acute fractures within the right foot although sensitivity diminished given motion a rtifact. 2. Moderate mid foot osteoarthritis. ACT 112: Negative or not required by law. Electronically signed by: Bruce Barba M.D. 05/12/2021 8:20 AM
--- NOTE | 2021-05-12 08:23 | XRay Report ---
XR foot RT 2V CLINICAL HISTORY: trauma COMPARISON: Right tibia and fibula radiographs May 28, 2010. FINDINGS: Acute minimally displaced right calcaneal fracture is better depicted on subsequent CT. Th is is not evident by radiography. Tarsometatarsal joints are intact. There is moderate mid foot osteo arthritis. Right foot and ankle soft tissue swelling is noted. There is hallux valgus deformity. Mode rate osteoporosis of the right first metatarsophalangeal joint is noted. Plantar and posterior calcan eal spurring is noted. IMPRESSION: 1. Acute minimally displaced right calcaneal fracture better depicted on subsequent CT. This is not e vident by radiography. 2. Moderate mid foot osteoarthritis. 3. Right ankle and foot soft tissue swelling. ACT 112: Negative or not required by law. Electronically signed by: Bruce Barba M.D. 05/12/2021 8:21 AM
--- NOTE | 2021-05-12 08:25 | XRay Report ---
XR foot LT 2V CLINICAL HISTORY: trauma COMPARISON: None FINDINGS: This exam is compromised by difficulty positioning. No acute fracture is identified. 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 Left ankle and foot soft tissue swelling is noted. There is mod erate osteophytosis of the left first metatarsophalangeal joint. Soft tissue calcifications of the le ft lower leg are chronic. IMPRESSION: 1. No acute fracture or dislocation within the left foot although evaluation compromised given diffic ulty positioning. 2. Moderate mid foot osteoarthritis. ACT 112: Negative or not required by law. Electronically signed by: Bruce Barba M.D. 05/12/2021 8:23 AM
--- NOTE | 2021-05-12 08:35 | History and Physical Report ---
DATE OF ADMISSION: 05/12/2021. CHIEF COMPLAINT: Status post fall and COVID positive. HISTORY OF PRESENT ILLNESS: This is an 85-year-old female with past medical history significant for type 2 diabetes, hypothyroidism, hyperlipidemia, chronic kidney disease stage III, history of chronic systolic congestive heart failure, exertional dyspnea, first-degree AV block, left bundle-branch block, CAD, hypertension, aortic valve stenosis, GERD, lymphedema of both lower extremities, general osteoarthrosis, history of Benign positional vertigo, aspirin allergy, history of moderate aortic stenosis, history of ischemic cardiomyopathy, status post biventricular cardiac pacemaker. Lives alone at home and daughter lives next door. Ambulates with a walker, but ambulatory status is not that great. She gets help at home. She fell last night when she was going to bed to sleep, was a mechanical fall. She was not able to get up and EMS was called in and she has a bruise in the left foot. She could not put weight on the leg, so that is why she was brought in here. She was saturating 90% on room air, with 2 L oxygen she is saturating okay. Her COVID test came back positive. As per the daughter, last Friday night she had one episode of vomiting and the next day she had an episode of diarrhea, but that got resolved.On night had some cough and yesterday night she had low-grade fever and cough got worse and she was feeling weak and tired and somewhat shaky. She had vaccine for COVID, second dose was done on 10/23/2020. Currently, resting comfortably and hemodynamically stable, saturating okay with oxygen. She has mild temperature spike of 37.6 in the ER, labs are okay. CT of the head and CT cervical spine okay. ER also ordered a CT scan of the foot, it is not done yet. The patient denies any headache. Without glasses she has double vision. Has some runny nose. No sore throat. Appetite is down the last few days . No dysphagia, no chest pain. She always has some shortness of breath with exertion, but that has not changed. No abdominal pain. Normal bladder movements. No blood in the stools. No hematuria. Has chronic lymphedema of the lower extremity and she has a lymphedema pump, which helps. ALLERGIES: ASPIRIN, IBUPROFEN, PENICILLIN, ADHESIVES, CIPROFLOXACIN, PREDNISONE. PAST MEDICAL HISTORY: As mentioned above. PAST SURGICAL HISTORY: Bilateral total knee replacement, lithotripsy, excision of seborrheic keratosis on left breast, plate in left arm, laparoscopic cholecystectomy, total hysterectomy. MEDICATIONS: The patient is on Colace 100 mg p.o. daily p.r.n., glucosamine chondroitin 1 capsule p.o. b.i.d., levothyroxine 88 mcg p.o. daily, lisinopril 2.5 mg p.o. a.m., magnesium oxide 400 mg p.o. a.m., metoprolol succinate 12.5 mg p.o. a.m., multivitamin 1 tablet p.o. a.m., potassium chloride 20 mEq p.o. b.i.d., spironolactone 12.5 mg p.o. a.m., torsemide 20 mg p.o. a.m. FAMILY HISTORY: Significant for mother has diabetes and NC and hypertension. SOCIAL HISTORY: , lives alone. Daughter lives next door. No smoking, no alcohol, no drug use. REVIEW OF SYSTEMS: As per HPI. Rest of the review of systems negative. PHYSICAL EXAMINATION: GENERAL: The patient is obese, not in acute distress. VITAL SIGNS: Temperature 37.6, pulse 91, respiratory rate 18, blood pressure 147/96, oxygen 90% on room air. HEENT: Pupils equal, round and reactive to light. Oral mucosa moist. NECK: No JVD. No neck masses seen. CARDIOVASCULAR: S1 and S2 heard. Regular rate and rhythm. No murmur, no gallop. RESPIRATORY SYSTEM: Normal AP diameter. No accessory muscle use. No wheezing, no crackles. ABDOMEN: Soft, bowel sounds present, nontender, no distention. CENTRAL NERVOUS SYSTEM: Cranial nerves II-XII grossly intact, nonfocal. EXTREMITIES: Bilateral lower extremity lymphedema present, no erythema seen. Bruise seen on the right foot region and tender on palpation. LABORATORY DATA: WBC 7.3, hemoglobin 11.9, hematocrit 35.7, platelets 244. Sodium 134, potassium 3.6, chloride 104, bicarbonate 25, BUN 18, creatinine 1.05. Serum glucose 143, calcium 8.8, magnesium 1.7, total bilirubin 0.6, AST 17, ALT 14, alkaline phosphatase 94. Troponin I less than 0.015. BNP 687, lipase 64. SARS-CoV-2 PCR negative. IMAGING DATA: CT head, no acute intracranial findings. CT cervical spine, no acute findings. EKG: Atrial sensed ventricular paced rhythm at a rate of 89. ASSESSMENT AND PLAN: This is an 85-year-old female who lives at home, who presented for mechanical fall and found to be COVID positive. 1. Mechanical fall: Possibly COVID contributing. Await urinalysis. Has a bruise on right foot and is tender on palpation. Will follow the CT of the foot. PT, OT when stable, pain control. 2. COVID positive: The patient is vaccinated for COVID, second dose was 10/23/2020. No obvious lesions on chest x-ray. The patient is generally short of breath on exertion at baseline, but does not use oxygen at home. In Er She was saturating 90% on room air, with 2 liters she is saturating okay and has mild temperature spike. Meets criteria for remdesivir and steroids, which we will give and closely monitor. Monitor the remdesivir labs. 3. Chronic diastolic and systolic congestive heart failure The patient's last echo was on 05/04/2021. EF of 50%. The patient has moderate aortic stenosis. Has chronic lymphedema. Will continue her home diuretics, torsemide and spironolactone with potassium supplements and lisinopril and Toprol-XL. Monitor for any volume overload. 4. History of diabetes: Not on any medication. Will follow the HbA1c, follow the ADA diet and placed on insulin sliding scale. 5. History of mild nonobstructive coronary artery disease: On beta barry. Currently, asymptomatic. 6. Hypertension: Will continue her home medication of lisinopril, metoprolol and diuretics. Will monitor the blood pressure. 7. Hypothyroidism: On Synthroid. 8. Deep venous thrombosis prophylaxis: Placed on Lovenox. DISPOSITION: Closely monitor in the med tele. PT/OT prior to discharge. Social service to help with discharge planning. Level 1 full code only if there is a chance of recovery, as per my discussion with the patient. Job ID: [id number] MTDD
--- NOTE | 2021-05-12 09:00 | XRay Report ---
XR chest 1V portable CLINICAL HISTORY: cough COMPARISON STUDY: Chest radiograph the October 12, 2019. FINDINGS: Dual lead left subclavian pacemaker is in place. There is cardiomegaly without evidence for pulmonary edema. No pneumothorax or pleural effusion is noted. There is no consolidation to suggest pneumonia. Minimal bibasilar opacities favor atelectasis. IMPRESSION: No acute cardiopulmonary findings. ACT 112: Negative or not required by law. Electronically signed by: Bruce Barba M.D. 05/12/2021 8:59 AM
[2021-05-12] MEDS ORDERED: ACETAMINOPHEN 500 MG TAB ONE (12:38)
[2021-05-12] MEDS ORDERED: ACETAMINOPHEN 325 MG TAB PO PRN (15:27)
[2021-05-12] MEDS ORDERED: NITROGLYCERIN SL 0.4 MG/TAB TAB SL PRN (15:27)
[2021-05-12] MEDS ORDERED: ONDANSETRON INJ 2 MG/ML 2 ML VIAL IV PRN (15:27)
--- NOTE | 2021-05-12 16:52 | Hospitalist Progress Note ---
Date of Service May 12, 2021 Assessment & Plan (1) Right calcaneal fracture: Plan: Continue with Tylenol and as needed tramadol for good pain control. Patient seems managed on Tylenol. Orthopedics consult requested in setting of displaced fracture. Hold off on weightbearing until orthopedics has commented. (2) COVID-19: Plan: No evidence of pneumonia on chest x-ray and this vaccinated individual. She is Covid positive and does have a recent history of Covid symptoms that began over the last 5 days. Agree with steroids and remdesivir at this time. Oxygen requirements are minimal to none at this point. Continue efforts and pulmonary toilet using incentive spirometer (3) Hypoxia: Plan: Appears resolved, continue to monitor. (4) Hypothyroidism: Plan: Continue Synthroid per home regimen. (5) HTN (hypertension): Plan: At goal, continue home regimen including Lisinopril 2.5 p.o. daily, torsemide 20 mg p.o. daily, Toprol-XL 12.5 p.o. daily, potassium 20 mill equivalents p.o. twice daily, Aldactone 12.5 mg p.o. daily. It should be noted she also has a history of chronic diastolic and systolic heart failure. She is compensated at this time. These medications are also appropriate treatment for this issue. (6) DVT prophylaxis: Plan: Lovenox Full Dispo-pending ortho an therapy assessments. Taisha De La Garza DO [facility] Hospitalist Admission and Anticipated Discharge Date Admission Date: May 12, 2021 Subjective 85-year-old female Covid positive who had a mechanical fall at home resulting in a minimally displaced calcaneal fracture. Recent GI upset that as improved Last BM was at home on and was diarrhea. Painful right heel managed well with APAP. We also discussed Tramadol PRN Feels she has a UTI but has no overt urinary symptoms States she is just apathetic and that is how she knows Updated her daughter by phone this evening. Review of Systems Review of Systems: At least ten systems were reviewed and negative except as indicated in HPI above. Physical Exam Physical Exam: CONSTITUTIONAL: morbid obesity, vitals as above, generally well-appearing, NAD EYES: normal conjunctivae, no scleral icterus ENT: external ear and nose normal, MMM NECK: trachea midline RESPIRATORY: clear to auscultation bilaterally, no crackles, rales or wheezes, normal respiratory effort CARDIOVASCULAR: regular rate and rhythm, S1 and 2 heard without murmurs, gallops or rubs, no JVD, chronic lymphedema of bilateral lower extremities, no pitting edema present. GASTROINTESTINAL: soft, nontender, nondistended, no guarding. Protuberant MUSCULOSKELETAL: strength 5/5 throughout, head is normocephalic and atraumatic SKIN: warm and dry, ecchymosis on distal plantar surface of right foot. Heel difficult to visualize as she is not strong enough to completely lift her leg off the bed. NEUROLOGIC: CN 2-12 grossly intact, normal cognition, normal speech, no tremor. No gross focal deficit. PSYCHIATRIC: alert cooperative and oriented to person, place and time. Results & Data Results & Data ([facility]) Vital Signs (Past 12 Hours) Vital Signs Temp Pulse Pulse Resp BP BP Pulse Ox 05/12/21 15:48 37.7 C H 79 20 144/85 H 93 05/12/21 15:44 37.7 C H 79 20 144/85 H 93 05/12/21 15:32 81 05/12/21 14:00 76 23 125/68 96 05/12/21 13:30 74 21 105/65 95 05/12/21 13:00 81 22 112/61 97 05/12/21 12:30 82 22 123/69 96 05/12/21 11:30 85 24 134/71 96 05/12/21 10:00 75 21 126/69 05/12/21 09:30 76 20 118/63 05/12/21 09:00 74 21 103/52 L 05/12/21 08:30 76 22 121/58 L 05/12/21 08:13 77 21 113/55 L 96 Laboratory Results Short CBC 05/12/21 Range/Units 03:42 WBC 7.31 (4.8-10.8) K/uL Hgb 11.9 L (12.0-16.0) g/dL Hct 35.7 L (37-47) % Plt Count 244 (130-400) K/uL BMP 05/12/21 03:42 Sodium 134 L Potassium 3.6 Chloride 104 Carbon Dioxide 25 BUN 18 Creatinine 1.05 Glucose 143 H Calcium 8.5 Cardiac Enzymes 05/12/21 Range/Units 03:42 Troponin I 0.019 (0-0.045) ng/ml Liver Function 05/12/21 Range/Units 03:42 Total Bilirubin 0.6 (0.2-1) mg/dl AST 17 (15-37) U/L ALT 14 (12-78) U/L Alkaline Phosphatase 94 (45-117) U/L Albumin 3.4 (3.4-5.0) gm/dl Medications Administered Current Inpatient Medications Acetaminophen (Acetaminophen 325 Mg Tab) 650 mg PO Q4H PRN PRN Reason: Pain or Fever Stop: 06/11/21 15:26 Docusate Sodium (Docusate Sodium 100 Mg Cap) 300 mg PO DAILY PRN PRN Reason: Constipation Stop: 06/11/21 15:26 Enoxaparin Sodium (Enoxaparin Inj 40 Mg/0.4 Ml Syr) 40 mg SQ Q12H [facility]ENT Stop: 06/11/21 20:59 Glucosamine Sulfate (Glucosamine Sulfate 500 Mg Cap) 1 mg PO BID BRENT Stop: 06/11/21 20:59 Remdesivir 100 mg/ Sodium (Chloride) 250 mls @ 250 mls/hr IV Q24H BRENT; Protocol Stop: 05/16/21 12:59 Dexamethasone 6 mg/ Syringe 1.5 mls @ 1 mls/min IV DAILY [facility]ENT Stop: 05/22/21 15:44 Insulin Aspart (Insulin Aspart 100 Units/Ml 3 Ml Pen) 0 units SC ACHS [facility] Stop: 06/11/21 15:26 Levothyroxine Sodium (Levothyroxine Sodium 88 Mcg Tablet) 88 mcg PO DAILYBB [facility] Stop: 06/11/21 15:26 Lisinopril (Lisinopril 2.5 Mg Tab) 2.5 mg PO QAM [facility] Stop: 06/11/21 15:26 Magnesium Oxide (Magnesium Oxide 400 Mg Tab) 400 mg PO QAM [facility] Stop: 06/11/21 15:26 Metoprolol Succinate (Metoprolol Succ 25mg Ext Rel Tab) 12.5 mg PO QAM [facility] Stop: 06/11/21 15:26 Multivitamins (Multivitamin Tab) 1 tab PO QAM [facility] Stop: 06/11/21 15:26 Nitroglycerin (Nitroglycerin Sl 0.4 Mg/Tab Tab) 0.4 mg SL UD PRN PRN Reason: Chest Pain Stop: 06/11/21 15:26 Ondansetron HCl (Ondansetron Inj 2 Mg/Ml 2 Ml Vial) 4 mg IV Q6H PRN PRN Reason: Nausea Stop: 06/11/21 15:26 Potassium Chloride (Potassium Chloride Crtab 20 Meq Tabcr) 20 meq PO BID [facility] Stop: 06/11/21 15:26 Sodium Chloride (Sodium Chloride 0.9% 10ml Flush) 30 ml IV Q24H [facility] Stop: 05/16/21 13:01 Spironolactone (Spironolactone 12.5 Mg Tab) 12.5 mg PO QAM [facility] Stop: 06/11/21 15:26 Torsemide (Torsemide 20 Mg Tab) 20 mg PO QAM [facility] Stop: 06/11/21 15:26
[2021-05-12] MEDS: METOPROLOL SUCC 25MG EXT REL TAB PO SCH (17:49)
[2021-05-12] MEDS: MULTIVITAMIN TAB PO SCH (17:49)
[2021-05-12] MEDS: MAGNESIUM OXIDE 400 MG TAB PO SCH (17:50)
[2021-05-12] MEDS: LEVOTHYROXINE SODIUM 88 MCG TABLET PO SCH (17:51)
[2021-05-12] MEDS: lisinopril 2.5 MG TAB PO SCH (17:51)
[2021-05-12] MEDS: TORSEMIDE 20 MG TAB PO SCH (17:52)
[2021-05-12] MEDS: SPIRONOLACTONE 12.5 MG TAB PO SCH (17:52)
[2021-05-12] MEDS: dexAMETHasone 6 MG in SYRINGE 0 ML IV SCH (17:52)
[2021-05-12] MEDS: POTASSIUM CHLORIDE CRTAB 20 MEQ TABCR PO SCH ×2 (17:53→20:09)
[2021-05-12 18:05] LABS: Appearance Urine Clear (Clear); Bacteria Urine Automated 3+ (Negative); Bilirubin Urine Negative (Negative); Blood Urine Negative (Negative); Color Urine Yellow; Glucose Urine UA Negative (Negative); Ketones Urine Trace (Negative); Leukocyte Esterase Urine Negative (Negative); Nitrite Urine Positive (Negative); Protein Urine Negative (Negative); RBC Urine Automated 0-4 /hpf (0-4); Specific Gravity Urine 1.015 (1.000-1.030); Urobilinogen Urine Negative (Negative)
[2021-05-12] MEDS: INSULIN ASPART 100 UNITS/ML 3 ML PEN SC SCH ×3 (18:06→20:04)
--- NOTE | 2021-05-12 18:14 | Orthopedic Consultation ---
Date of Service May 12, 2021 Assessment & Plan (1) Right calcaneal fracture: Stable pattern, minimally displaced calcaneus fracture from an impact injury to the heel due to fall at home. Recommend pain control and slow advancement with weightbearing as tolerated. Given the obvious lymphedema, I think immobilization will provide no advantage that would outweigh potential for skin irritation or compromise. Weightbearing as tolerated in normal shoes. Shoe modifications as needed. Con partnership manager trial of fracture shoe, but this often leads to imbalance. Strict heel pressure sore precautions while in bed. Ice and elevation in addition to pain control per the primary team. May treat symptomatically and follow-up with primary care. May also follow-up with orthopedics if she desires in 4 to 6 weeks for repeat x-rays, sooner if there is worsening pain or other issues of concern. History of Present Illness Reason for Consultation: Right calcaneal fracture Requesting Physician: . Attending Physician: Taisha De aL Garza DO Chart reviewed. Images reviewed. 85-year-old female who lives at home with diabetes and lymphedema was admitted from the emergency room because of COVID-19 symptoms and a fall. Consult was for calcaneal fracture suspected due to mechanism and bruising but n one seen on x-ray. CT revealed a minimally displaced fracture. Patient had difficulty in the emergency room weightbearing due to pain. No previous history of major foot injuries. Allergies Allergy/AdvReac Type Severity Reaction Status Date / Time aspirin Allergy Intermediate Hives, Verified 05/12/21 02:24 shortness of breath ibuprofen Allergy Intermediate Rash, hives Verified 05/12/21 02:24 Penicillins Allergy Intermediate Rash, hives Verified 05/12/21 02:24 adhesive Allergy Mild Reddened Verified 05/12/21 02:24 and sore skin ciprofloxacin AdvReac Intermediate Weakness Verified 05/12/21 02:24 prednisone AdvReac Mild Confusion Verified 05/12/21 02:24 Home Medications Medication Instructions Recorded Confirmed Type magnesium oxide 400 mg (241.3 mg 400 mg PO QAM 05/31/18 05/12/21 History magnesium) tablet metoprolol succinate 25 mg 12.5 mg PO QAM 05/31/18 05/12/21 History tablet,extended release 24 hr (Toprol XL) multivitamin 1 tab PO QAM 05/31/18 05/12/21 History potassium chloride 20 mEq 20 meq PO BID 10/07/18 09/18/21 History tablet,extended release(part/cryst) spironolactone 25 mg tablet 12.5 mg PO QAM 05/31/18 05/12/21 History (Aldactone) glucosamine sulf dipot 1 cap PO BID 02/04/19 05/12/21 History chlr,msm,chond 550 mg-C 30 mg-vandana 1 mg capsule (Glucosamine Chondroitin) docusate sodium 100 mg capsule 300 mg PO DAILY PRN 05/11/19 05/12/21 History (Colace) torsemide 20 mg tablet 20 mg PO QAM 10/12/19 05/12/21 History levothyroxine 88 mcg tablet 88 mcg PO QAM 05/12/21 05/12/21 History lisinopril 2.5 mg tablet 2.5 mg PO QAM 05/12/21 05/12/21 History Past Med/Surg History Medical History Arthritis Diabetes mellitus, type II History of recurrent UTIs Hypothyroidism LBBB (left bundle branch block) Lymphedema NICM (nonischemic cardiomyopathy) Pacemaker Pneumonia Systolic heart failure Vertigo Surgical History History of hysterectomy History of knee replacement, total Hx of cholecystectomy Family History Other Diabetes Heart disease Hypertension Social History Smoking Status: Never smoker Second Hand Exposure: No; Hx Alcohol Use: No Hx Substance Use: No Preferred Language: Surinamese Communication Ability: Effective Jewelry Manager Required: No Beliefs That Will Affect Care: None marital status: / Current Living Situation: Alone Current Living Situation Comment: home alone, daughter lives next door current occupational status: retired Other Information That Helps Us Care for You: Yes ([place]) Feels Safe at Home: Yes Safety Concerns: Feels Safe At This Time Assistive Devices: Denture - Upper, Denture - Lower, Glasses and Walker Assistive Devices Comment: compression device for lymphedema Review of Systems All systems reviewed & are unremarkable except as noted in HPI & below. Physical Exam In person exam deferred due to COVID-19 positivity and symptomology, PPE conservation, low severity of the fracture pattern and low utility of clinical exam Objective findings in the chart include lymphedema and ecchymosis about the heel. Results & Data Results & Data Laboratory Results . Diagnostic Findings Radiographs of the right foot were reviewed by me and I agree with the radiologist rotation. There is no evidence of calcaneal fracture on these views. There is diffuse osteoarthritis and obvious lymphedema. CT scan of the right foot was also reviewed and I also agree with the radiologist interpretation. There is a minimally displaced fracture in the posterior lateral corner of the calcaneus. There is no articular extension. Stable pattern. PG Care Time/CCT Total # of Minutes Spent Total Time Spent with Patient: Total time spent is greater than 50% in coordination of care (as documented) at patient's floor/unit and/or counseling patient: Coding Level of Care Code 69810 Inpt Consult Level 4 Diagnoses Right calcaneal fracture S92.001A Additional Codes Fx Foot - Calcaneus: Calcaneus ([id number])
[2021-05-12] MEDS ORDERED: traMADol HCL 50 MG TABLET PO PRN (18:46)
[2021-05-12] MEDS: cefTRIAXone SODIUM 2,000 MG in DEXTROSE 5% 50 ML IV SCH (19:24)
[2021-05-12] MEDS: ENOXAPARIN INJ 40 MG/0.4 ML SYR SQ SCH (20:09)
[2021-05-12] MEDS ORDERED: GLUCOSAMINE SULFATE 500 MG CAP PO SCH (21:00)
[2021-05-12] MEDS: GLUCOSAMINE SULFATE 500 MG CAP PO SCH (21:12)
[2021-05-13] MEDS: LEVOTHYROXINE SODIUM 88 MCG TABLET PO SCH (06:12)
[2021-05-13 06:14] LABS: Basophils # (auto) 0.01 K/uL (0-0.2); Basophils % (auto) 0.2 %; Hematocrit (blood only) 33.4 % (37-47); Hemoglobin 11.1 g/dL (12.0-16.0); Immature Granulocytes # (auto) 0.01 K/uL (0.00-0.02); Immature Granulocytes % (auto) 0.2 %; Lymphocytes # (auto) 0.87 K/uL (1.2-3.4); Lymphocytes % (auto) 20.2 %; Mean Corpuscular Hemoglobin 34.6 pg (25-34); Mean Corpuscular Hgb Conc 33.2 g/dL (32-36); Mean Platelet Volume 9.2 fL (7.4-10.4); Monocytes # (auto) 0.37 K/uL (0.11-0.59); Monocytes % (auto) 8.6 %; Neutrophils # (auto) 3.05 K/uL (1.4-6.5); Neutrophils % (auto) 70.8 %; Platelet Count 213 K/uL (130-400); RDW Coefficient of Variation 14.1 % (11.5-14.5); RDW Standard Deviation 53.8 fL (36.4-46.3); Red Blood Count 3.21 M/uL (4.2-5.4); White Blood Count 4.31 K/uL (4.8-10.8)
[2021-05-13 06:35] LABS: Alanine Aminotransferase 14 U/L (12-78); Aspartate Aminotransferase 19 U/L (15-37); BUN Creatinine Ratio 20.2 (10-20); Bilirubin Direct < 0.1 mg/dl (0-0.2); Blood Urea Nitrogen 21 mg/dl (7-18); Carbon Dioxide 24 mmol/L (21-32); Chloride 106 mmol/L (98-107); Creatinine Clr Calc Pharmacy 46.2 ml/min; Est GFR (African American) 55.4 ml/min; Est GFR (Non-African American) 47.8 ml/min; Glucose 154 mg/dl (70-99); Potassium 3.8 mmol/L (3.5-5.1); Sodium 137 mmol/L (136-145)
[2021-05-13 06:38] LABS: Alkaline Phosphatase 75 U/L (45-117); Bilirubin,Total 0.3 mg/dl (0.2-1); Total Protein 6.6 gm/dl (6.4-8.2)
[2021-05-13] MEDS: INSULIN ASPART 100 UNITS/ML 3 ML PEN SC SCH ×4 (08:18→20:52)
[2021-05-13] MEDS: dexAMETHasone 6 MG in SYRINGE 0 ML IV SCH (08:20)
[2021-05-13] MEDS: ENOXAPARIN INJ 40 MG/0.4 ML SYR SQ SCH ×2 (08:25→20:22)
[2021-05-13] MEDS: GLUCOSAMINE SULFATE 500 MG CAP PO SCH ×2 (08:28→20:22)
[2021-05-13] MEDS: TORSEMIDE 20 MG TAB PO SCH (08:28)
[2021-05-13] MEDS: POTASSIUM CHLORIDE CRTAB 20 MEQ TABCR PO SCH ×2 (08:28→20:23)
[2021-05-13] MEDS: lisinopril 2.5 MG TAB PO SCH (08:29)
[2021-05-13] MEDS: MAGNESIUM OXIDE 400 MG TAB PO SCH (08:29)
[2021-05-13] MEDS: METOPROLOL SUCC 25MG EXT REL TAB PO SCH (08:29)
[2021-05-13] MEDS: MULTIVITAMIN TAB PO SCH (08:30)
[2021-05-13] MEDS: SPIRONOLACTONE 12.5 MG TAB PO SCH (08:30)
--- NOTE | 2021-05-13 11:28 | Hospitalist Progress Note ---
Date of Service May 13, 2021 Assessment & Plan (1) Right calcaneal fracture: Plan: Continue with Tylenol and as needed tramadol for good pain control. Patient seems managed on Tylenol. Orthopedics consult requested in setting of displaced fracture. Weightbearing as tolerated. PT/OT ordered. Waffle boots ordered for prevention of skin breakdown on heels. (2) COVID-19: Plan: No evidence of pneumonia on chest x-ray and this vaccinated individual. She is Covid positive and does have a recent history of Covid symptoms that began over the last 5 days. Agree with steroids and remdesivir at this time. Oxygen requirements are minimal to none at this point. Continue efforts and pulmonary toilet using incentive spirometer (3) Hypoxia: Plan: Persistent with 91% on room air, continue therapy as above. (4) Hypothyroidism: Plan: Continue Synthroid per home regimen. (5) HTN (hypertension): Plan: At goal, continue home regimen including Lisinopril 2.5 p.o. daily, torsemide 20 mg p.o. daily, Toprol-XL 12.5 p.o. daily, potassium 20 mill equivalents p.o. twice daily, Aldactone 12.5 mg p.o. daily. It should be noted she also has a history of chronic diastolic and systolic heart failure. She is compensated at this time. These medications are also appropriate treatment for this issue. (6) DVT prophylaxis: Plan: Lovenox Full Disposition-pending ability to mobilize and PT/OT recommendations. Taisha De La Garza DO [facility] Hospitalist Admission and Anticipated Discharge Date Admission Date: May 12, 2021 Subjective 85-year-old female Covid positive who had a mechanical fall at home resulting in a minimally displaced calcaneal fracture. Reports feeling last apathetic, less confused today Afebrile, tolerating p.o. Right heel pain is well managed. She has not gotten out of bed today despite being weightbearing as tolerated. Some cough present but declines cough syrup. Reports no issues with shortness of breath. Oxygenating 91% on room air. Review of Systems Review of Systems: At least ten systems were reviewed and negative except as indicated in HPI above. Physical Exam Physical Exam: CONSTITUTIONAL: morbid obesity, vitals as above, generally well-appearing, NAD EYES: normal conjunctivae, no scleral icterus ENT: external ear and nose normal, MMM NECK: trachea midline RESPIRATORY: clear to auscultation bilaterally, no crackles, rales or wheezes, normal respiratory effort CARDIOVASCULAR: regular rate and rhythm, S1 and 2 heard without murmurs, gallops or rubs, no JVD, chronic lymphedema of bilateral lower extremities, no pitting edema present. GASTROINTESTINAL: soft, nontender, nondistended, no guarding. Protuberant MUSCULOSKELETAL: strength 5/5 throughout, head is normocephalic and atraumatic SKIN: warm and dry, ecchymosis on distal plantar surface of right foot. External heel with no wound NEUROLOGIC: CN 2-12 grossly intact, normal cognition, normal speech, no tremor. No gross focal deficit. PSYCHIATRIC: alert cooperative and oriented to person, place and time. Results & Data Results & Data ([facility]) Vital Signs (Past 12 Hours) Vital Signs Temp Pulse Pulse Resp BP Pulse Ox 05/13/21 08:47 37.1 C 69 20 145/63 H 96 05/13/21 04:00 36.6 C 66 18 106/65 93 05/12/21 23:34 36.7 C 71 20 98/61 L 90 05/12/21 23:31 67 Laboratory Results Short CBC 05/13/21 Range/Units 06:05 WBC 4.31 L (4.8-10.8) K/uL Hgb 11.1 L (12.0-16.0) g/dL Hct 33.4 L (37-47) % Plt Count 213 (130-400) K/uL BMP 05/13/21 06:05 Sodium 137 Potassium 3.8 Chloride 106 Carbon Dioxide 24 BUN 21 H Creatinine 1.06 Glucose 154 H Calcium 8.0 L Liver Function 05/13/21 Range/Units 06:05 Total Bilirubin 0.3 (0.2-1) mg/dl Direct Bilirubin < 0.1 (0-0.2) mg/dl AST 19 (15-37) U/L ALT 14 (12-78) U/L Alkaline Phosphatase 75 (45-117) U/L Albumin 3.0 L (3.4-5.0) gm/dl Urine 05/12/21 Range/Units 17:45 Urine Color Yellow Urine Appearance Clear (Clear) Urine pH 5.0 (4.5-7.5) Ur Specific Buckner 1.015 (1.000-1.030) Urine Protein Negative (Negative) Urine Glucose (UA) Negative (Negative) Medications Administered Current Inpatient Medications Acetaminophen (Acetaminophen 325 Mg Tab) 650 mg PO Q4H PRN PRN Reason: Pain or Fever Stop: 06/11/21 15:26 Last Admin: 05/12/21 17:49 Dose: 650 mg Documented by: Docusate Sodium (Docusate Sodium 100 Mg Cap) 300 mg PO DAILY PRN PRN Reason: Constipation Stop: 06/11/21 15:26 Enoxaparin Sodium (Enoxaparin Inj 40 Mg/0.4 Ml Syr) 40 mg SQ Q12H [facility] Stop: 06/11/21 20:59 Last Admin: 05/13/21 08:25 Dose: 40 mg Documented by: Glucosamine Sulfate (Glucosamine Sulfate 500 Mg Cap) 500 mg PO BID [facility] Stop: 06/11/21 20:59 Last Admin: 05/13/21 08:28 Dose: 500 mg Documented by: Guaifenesin/Dextromethorphan (Guaifenesin/Dextrom Syrup 200mg/20mg 10ml Udc) 10 ml PO Q6H PRN PRN Reason: Cough Stop: 06/11/21 18:45 Remdesivir 100 mg/ Sodium (Chloride) 250 mls @ 250 mls/hr IV Q24H [facility]; Protocol Stop: 05/16/21 12:59 Dexamethasone 6 mg/ Syringe 1.5 mls @ 1 mls/min IV DAILY [facility] Stop: 05/22/21 15:44 Last Admin: 05/13/21 08:20 Dose: 1 mls/min Documented by: Ceftriaxone Sodium 2,000 mg/ (Dextrose) 70 mls @ 100 mls/hr IV Q24H [facility]; Protocol Stop: 05/17/21 18:59 Last Infusion: 05/12/21 20:20 Dose: Infused Documented by: Insulin Aspart (Insulin Aspart 100 Units/Ml 3 Ml Pen) 0 units SC ACHS [facility] Stop: 06/11/21 15:26 Last Admin: 05/13/21 08:18 Dose: Not Given Documented by: Levothyroxine Sodium (Levothyroxine Sodium 88 Mcg Tablet) 88 mcg PO DAILYBB [facility] Stop: 06/11/21 15:26 Last Admin: 05/13/21 06:12 Dose: 88 mcg Documented by: Lisinopril (Lisinopril 2.5 Mg Tab) [facility] Stop: 06/11/21 15:26 Last Admin: 05/13/21 08:29 Dose: 2.5 mg Documented by: Magnesium Oxide (Magnesium Oxide 400 Mg Tab) 400 mg PO QAM [facility] Stop: 06/11/21 15:26 Last Admin: 05/13/21 08:29 Dose: 400 mg Documented by: Metoprolol Succinate (Metoprolol Succ 25mg Ext Rel Tab) 12.5 mg PO [facility] Stop: 06/11/21 15:26 Last Admin: 05/13/21 08:29 Dose: 12.5 mg Documented by: Multivitamins (Multivitamin Tab) 1 tab PO [facility] Stop: 06/11/21 15:26 Last Admin: 05/13/21 08:30 Dose: 1 tab Documented by: Nitroglycerin (Nitroglycerin Sl 0.4 Mg/Tab Tab) 0.4 mg SL UD PRN PRN Reason: Chest Pain Stop: 06/11/21 15:26 Ondansetron HCl (Ondansetron Inj 2 Mg/Ml 2 Ml Vial) 4 mg IV Q6H PRN PRN Reason: Nausea Stop: 06/11/21 15:26 Potassium Chloride (Potassium Chloride Crtab 20 Meq Tabcr) 20 meq PO BID [facility] Stop: 06/11/21 15:26 Last Admin: 05/13/21 08:28 Dose: 20 meq Documented by: Sodium Chloride (Sodium Chloride 0.9% 10ml Flush) 30 ml IV Q24H [facility] Stop: 05/16/21 13:01 Spironolactone (Spironolactone 12.5 Mg Tab) 12.5 mg PO [facility] Stop: 06/11/21 15:26 Last Admin: 05/13/21 08:30 Dose: 12.5 mg Documented by: Torsemide (Torsemide 20 Mg Tab) 20 mg PO [facility] Stop: 06/11/21 15:26 Last Admin: 05/13/21 08:28 Dose: 20 mg Documented by: Tramadol HCl (Tramadol Hcl 50 Mg Tablet) 50 mg PO Q4H PRN PRN Reason: Pain Stop: 06/11/21 18:45 Last Admin: 05/12/21 19:49 Dose: 50 mg Documented by:
[2021-05-13] MEDS ORDERED: REMDESIVIR 100 MG in SODIUM CHLORIDE 0.9% 230 ML IV SCH (12:00)
[2021-05-13] MEDS: SODIUM CHLORIDE 0.9% 10ML FLUSH IV SCH (12:54)
[2021-05-13] MEDS ORDERED: COUGH DROP (SUGAR FREE) LOZ 24 LOZ/1 BOX BUCCAL PRN (15:47)
[2021-05-13] MEDS: cefTRIAXone SODIUM 2,000 MG in DEXTROSE 5% 50 ML IV SCH (19:11)
--- NOTE | 2021-05-13 20:01 | Electrocardiogram Report ---
Test Reason : Blood Pressure : / mmHG Vent. Rate : 089 BPM Atrial Rate : 089 BPM P-R Int : 160 ms QRS Dur : 150 ms QT Int : 430 ms P-R-T Axes : 066 149 113 degrees QTc Int : 523 ms Poor data quality, interpretation may be adversely affected Atrial-sensed ventricular-paced rhythm Abnormal ECG When compared with ECG of 12-OCT-2019 18:50, Vent. rate has increased BY 24 BPM Confirmed by Richie Handy ([id number]) on 05/13/2021 8:00:58 PM Referred By: REFERRED SELF Confirmed By:Richie Handy
[2021-05-13] MEDS: ASCORBIC ACID 500 MG TAB PO SCH (20:23)
[2021-05-13] MEDS: guaiFENesin 600 MG TABCR PO SCH (20:23)
[2021-05-14] MEDS: LEVOTHYROXINE SODIUM 88 MCG TABLET PO SCH (06:16)
[2021-05-14 07:28] LABS: Estimated Average Glucose 137 mg/dl; Hemoglobin A1C 6.4 % (4.5-5.6)
[2021-05-14] MEDS: dexAMETHasone 6 MG in SYRINGE 0 ML IV SCH (08:31)
[2021-05-14] MEDS: guaiFENesin 600 MG TABCR PO SCH ×2 (08:32→20:24)
[2021-05-14] MEDS: MULTIVITAMIN TAB PO SCH (08:32)
[2021-05-14] MEDS: ASCORBIC ACID 500 MG TAB PO SCH ×2 (08:32→20:23)
[2021-05-14] MEDS: POTASSIUM CHLORIDE CRTAB 20 MEQ TABCR PO SCH ×2 (08:32→20:24)
[2021-05-14] MEDS: GLUCOSAMINE SULFATE 500 MG CAP PO SCH ×2 (08:32→20:24)
[2021-05-14] MEDS: METOPROLOL SUCC 25MG EXT REL TAB PO SCH (08:32)
[2021-05-14] MEDS: lisinopril 2.5 MG TAB PO SCH (08:32)
[2021-05-14] MEDS: guaiFENesin/DEXTROM SYRUP 200MG/20MG 10ML UDC PO PRN (08:32)
[2021-05-14] MEDS: ZINC SULFATE 220 MG CAPSULE PO SCH (08:33)
[2021-05-14] MEDS: CHOLECALCIFEROL 1,000 UNITS 25 MCG TAB PO SCH (08:33)
[2021-05-14] MEDS: TORSEMIDE 20 MG TAB PO SCH (08:33)
[2021-05-14] MEDS: MAGNESIUM OXIDE 400 MG TAB PO SCH (08:33)
[2021-05-14] MEDS: SPIRONOLACTONE 12.5 MG TAB PO SCH (08:33)
[2021-05-14] MEDS: ENOXAPARIN INJ 40 MG/0.4 ML SYR SQ SCH ×2 (08:34→20:28)
[2021-05-14 09:21] LABS: Creatinine Clr Calc Pharmacy 42.1 ml/min; Est GFR (African American) 49.2 ml/min; Est GFR (Non-African American) 42.5 ml/min
[2021-05-14] MEDS: INSULIN ASPART 100 UNITS/ML 3 ML PEN SC SCH ×4 (11:29→21:42)
[2021-05-14] MEDS: ERTAPENEM SODIUM 1,000 MG in SODIUM CHLORIDE 0.9% 50 ML IV SCH (11:50)
[2021-05-14] MEDS: SODIUM CHLORIDE 0.9% 10ML FLUSH IV SCH (11:56)
[2021-05-14] MEDS: ACETAMINOPHEN 500 MG TAB PO SCH ×2 (16:43→23:39)
--- NOTE | 2021-05-14 17:17 | XRay Report ---
SINGLE VIEW CHEST CLINICAL HISTORY: Cough. Covid. FINDINGS: An AP, portable, upright chest radiograph is compared to chest x-ray dated 05/12/2021 and co rrelated with chest CT dated 05/11/2019. The examination is degraded by portable technique and patient rotation. A 3-lead cardiac pacemaker is unchanged in position. The heart is enlarged. The pulmonary vasculature is noncongested. Chronic interstitial thickening is similar to previous. Scarring/atelect asis is seen at both lung bases. No airspace consolidation or large pleural effusion is identified. N o pneumothorax is seen. The skeletal structures are osteopenic. The bony thorax is grossly intact. Ca lcific tendinopathy is noted in the left shoulder. IMPRESSION: 1. Cardiomegaly and cardiac pacemaker. There is no radiographic evidence of congestive failure. 2. No airspace consolidation or large pleural effusion is identified. Electronically signed by: Nigel Virgen M.D. 05/14/2021 5:15 PM
--- NOTE | 2021-05-14 18:29 | Hospitalist Progress Note ---
Date of Service May 14, 2021 Assessment & Plan (1) Right calcaneal fracture: Plan: Continue with Tylenol, Which was now scheduled, and as needed tramadol for good pain control. Patient seems managed on Tylenol. Weightbearing as tolerated Which was difficult for her today. PT/OT ordered. Waffle boots ordered for prevention of skin breakdown on heels. Dr. Hernandez will help provide a postop shoe for her (2) COVID-19: Plan: No evidence of pneumonia on chest x-ray and this vaccinated individual. Increased coughing today with repeat chest x-ray in no signs of pneumonia or pulmonary vascular congestion. She is Covid positive Reports a recent history of symptoms. Initially agreed with steroids and remdesivir, however, in the setting of an active UTI, will stop steroids. She is oxygenating well on room air. (3) Hypoxia: Plan: Resolved. (4) Hypothyroidism: Plan: Continue Synthroid per home regimen. (5) HTN (hypertension): Plan: At goal, continue home regimen including Lisinopril 2.5 p.o. daily, torsemide 20 mg p.o. daily, Toprol-XL 12.5 p.o. daily, potassium 20 mill equivalents p.o. twice daily, Aldactone 12.5 mg p.o. daily. It should be noted she also has a history of chronic diastolic and systolic heart failure. She is compensated at this time. These medications are also appropriate treatment for this issue. (6) DVT prophylaxis: Plan: Lovenox Full Disposition-pending ability to mobilize and PT/OT recommendations. Discussed case with daughter by phone and requested she bring in patient's home walker which she trusts more than the hospital walker. Taisha De La Garza DO [facility] Hospitalist Admission and Anticipated Discharge Date Admission Date: May 12, 2021 Subjective 85-year-old female Covid positive who had a mechanical fall at home resulting in a minimally displaced calcaneal fracture. Reports more "cold symptoms" Feels she caught a cold while being here. Reports runny nose and nonproductive cough. Has had some throat lozenges which have helped. Declines cough syrup at this time. She reports some pain in her right big toe. She denies a history of gout. She reports this is arthritis. Tylenol scheduled and as needed tramadol ordered. She was unsuccessful in working with physical therapy today as the walker was not wide enough for her. She reports having a power walker at home and we discussed how her daughter can bring this to help her ambulate in a.m. Also discussed with orthopedics the possibility of having some type of postop shoe to ambulate on. He will work on getting this for tomorrow's therapy session. Review of Systems Review of Systems: At least ten systems were reviewed and negative except as indicated in HPI above. Physical Exam Physical Exam: CONSTITUTIONAL: morbid obesity, vitals as above, generally well-appearing, NAD EYES: normal conjunctivae, no scleral icterus ENT: external ear and nose normal, MMM NECK: trachea midline RESPIRATORY: clear to auscultation bilaterally, no crackles, rales or wheezes, normal respiratory effort CARDIOVASCULAR: regular rate and rhythm, S1 and 2 heard without murmurs, gallops or rubs, no JVD, chronic lymphedema of bilateral lower extremities, no pitting edema present. GASTROINTESTINAL: soft, nontender, nondistended, no guarding. Protuberant MUSCULOSKELETAL: strength 5/5 throughout, head is normocephalic and atraumatic SKIN: warm and dry, ecchymosis on distal plantar surface of right foot. External heel with no wound NEUROLOGIC: CN 2-12 grossly intact, normal cognition, normal speech, no tremor. No gross focal deficit. PSYCHIATRIC: alert cooperative and oriented to person, place and time. Results & Data Results & Data ([facility]) Vital Signs (Past 12 Hours) Vital Signs Temp Pulse Pulse Resp BP Pulse Ox 05/14/21 08:11 36.6 C 64 18 116/72 92 05/14/21 08:00 61 Laboratory Results BMP 05/14/21 08:09 Creatinine 1.17 Liver Function 05/14/21 Range/Units 08:09 AST 26 (15-37) U/L ALT 17 (12-78) U/L Diagnostic Findings Chest X-Ray 05/14/21 15:49 SINGLE VIEW CHEST CLINICAL HISTORY: Cough. Covid. FINDINGS: An AP, portable, upright chest radiograph is compared to chest x-ray dated 05/12/2021 and correlated with chest CT dated 05/11/2019. The examination is degraded by portable technique and patient rotation. A 3-lead cardiac pacemaker is unchanged in position. The heart is enlarged. The pulmonary vasculature is noncongested. Chronic interstitial thickening is similar to previous. Scarring/atelectasis is seen at both lung bases. No airspace consolidation or large pleural effusion is identified. No pneumothorax is seen. The skeletal structures are osteopenic. The bony thorax is grossly intact. Calcific tendinopathy is noted in the left shoulder. IMPRESSION: 1. Cardiomegaly and cardiac pacemaker. There is no radiographic evidence of congestive failure. 2. No airspace consolidation or large pleural effusion is identified. Electronically signed by: Nigel Virgen M.D. 05/14/2021 5:15 PM Medications Administered Current Inpatient Medications Acetaminophen (Acetaminophen 325 Mg Tab) 650 mg PO Q4H PRN PRN Reason: Pain or Fever Stop: 06/11/21 15:26 Last Admin: 05/12/21 17:49 Dose: 650 mg Documented by: Acetaminophen (Acetaminophen 500 Mg Tab) 1,000 mg PO Q8H [facility] Stop: 06/13/21 15:59 Last Admin: 05/14/21 16:43 Dose: 1,000 mg Documented by: Ascorbic Acid (Ascorbic Acid 500 Mg Tab) 500 mg PO BID [facility] Stop: 06/12/21 20:59 Last Admin: 05/14/21 08:32 Dose: 500 mg Documented by: Docusate Sodium (Docusate Sodium 100 Mg Cap) 300 mg PO DAILY PRN PRN Reason: Constipation Stop: 06/11/21 15:26 Enoxaparin Sodium (Enoxaparin Inj 40 Mg/0.4 Ml Syr) 40 mg SQ Q12H [facility] Stop: 06/11/21 20:59 Last Admin: 05/14/21 08:34 Dose: 40 mg Documented by: Glucosamine Sulfate (Glucosamine Sulfate 500 Mg Cap) 500 mg PO BID [facility] Stop: 06/11/21 20:59 Last Admin: 05/14/21 08:32 Dose: 500 mg Documented by: Guaifenesin (Guaifenesin 600 Mg Tabcr) 600 mg PO Q12 [facility] Stop: 06/12/21 20:59 Last Admin: 05/14/21 08:32 Dose: 600 mg Documented by: Guaifenesin/Dextromethorphan (Guaifenesin/Dextrom Syrup 200mg/20mg 10ml Udc) 10 ml PO Q6H PRN PRN Reason: Cough Stop: 06/11/21 18:45 Last Admin: 05/14/21 08:32 Dose: 10 ml Documented by: Ertapenem 1,000 mg/ Sodium (Chloride) 60 mls @ 100 mls/hr IV Q24H [facility]; Protocol Stop: 05/24/21 10:59 Last Infusion: 05/14/21 12:26 Dose: Infused Documented by: Insulin Aspart (Insulin Aspart 100 Units/Ml 3 Ml Pen) 0 units SC ACHS [facility] Stop: 06/11/21 15:26 Last Admin: 05/14/21 16:52 Dose: 3 units Documented by: Levothyroxine Sodium (Levothyroxine Sodium 88 Mcg Tablet) 88 mcg PO DAILYBB [facility] Stop: 06/11/21 15:26 Last Admin: 05/14/21 06:16 Dose: 88 mcg Documented by: Lisinopril (Lisinopril 2.5 Mg Tab) 2.5 mg PO [facility] Stop: 06/11/21 15:26 Last Admin: 05/14/21 08:32 Dose: 2.5 mg Documented by: Magnesium Oxide (Magnesium Oxide 400 Mg Tab) 400 mg PO [facility] Stop: 06/11/21 15:26 Last Admin: 05/14/21 08:33 Dose: 400 mg Documented by: Menthol (Cough Drop (Sugar Free) Nicole 24 Nicole/1 Box) 1 nicole BUCCAL Q1H PRN PRN Reason: Sore Throat/cough Stop: 06/12/21 15:46 Metoprolol Succinate (Metoprolol Succ 25mg Ext Rel Tab) 12.5 mg PO [facility] Stop: 06/11/21 15:26 Last Admin: 05/14/21 08:32 Dose: 12.5 mg Documented by: Multivitamins (Multivitamin Tab) 1 tab PO [facility] Stop: 06/11/21 15:26 Last Admin: 05/14/21 08:32 Dose: 1 tab Documented by: Nitroglycerin (Nitroglycerin Sl 0.4 Mg/Tab Tab) 0.4 mg SL UD PRN PRN Reason: Chest Pain Stop: 06/11/21 15:26 Ondansetron HCl (Ondansetron Inj 2 Mg/Ml 2 Ml Vial) 4 mg IV Q6H PRN PRN Reason: Nausea Stop: 06/11/21 15:26 Potassium Chloride (Potassium Chloride Crtab 20 Meq Tabcr) 20 meq PO BID [facility] Stop: 06/11/21 15:26 Last Admin: 05/14/21 08:32 Dose: 20 meq Documented by: Spironolactone (Spironolactone 12.5 Mg Tab) 12.5 mg PO QAM [facility] Stop: 06/11/21 15:26 Last Admin: 05/14/21 08:33 Dose: 12.5 mg Documented by: Torsemide (Torsemide 20 Mg Tab) 20 mg PO QAM [facility] Stop: 06/11/21 15:26 Last Admin: 05/14/21 08:33 Dose: 20 mg Documented by: Tramadol HCl (Tramadol Hcl 50 Mg Tablet) 50 mg PO Q4H PRN PRN Reason: Pain Stop: 06/11/21 18:45 Last Admin: 05/12/21 19:49 Dose: 50 mg Documented by: Vitamin D (Cholecalciferol 1,000 Units 25 Mcg Tab) 1,000 units PO QAM [facility] Stop: 06/13/21 08:59 Last Admin: 05/14/21 08:33 Dose: 1,000 units Documented by: Zinc Sulfate (Zinc Sulfate 220 Mg Capsule) 220 mg PO QAM [facility] Stop: 06/13/21 08:59 Last Admin: 05/14/21 08:33 Dose: 220 mg Documented by:
[2021-05-15] MEDS: LEVOTHYROXINE SODIUM 88 MCG TABLET PO SCH (06:16)
[2021-05-15 08:12] LABS: Creatinine Clr Calc Pharmacy 45.1 ml/min; Est GFR (African American) 54.8 ml/min; Est GFR (Non-African American) 47.3 ml/min
[2021-05-15] MEDS: TORSEMIDE 20 MG TAB PO SCH (08:29)
[2021-05-15] MEDS: MAGNESIUM OXIDE 400 MG TAB PO SCH (08:29)
[2021-05-15] MEDS: ZINC SULFATE 220 MG CAPSULE PO SCH (08:29)
[2021-05-15] MEDS: MULTIVITAMIN TAB PO SCH (08:29)
[2021-05-15] MEDS: POTASSIUM CHLORIDE CRTAB 20 MEQ TABCR PO SCH ×2 (08:29→21:07)
[2021-05-15] MEDS: ACETAMINOPHEN 500 MG TAB PO SCH ×2 (08:29→16:27)
[2021-05-15] MEDS: guaiFENesin 600 MG TABCR PO SCH ×2 (08:29→21:06)
[2021-05-15] MEDS: SPIRONOLACTONE 12.5 MG TAB PO SCH (08:29)
[2021-05-15] MEDS: METOPROLOL SUCC 25MG EXT REL TAB PO SCH (08:29)
[2021-05-15] MEDS: GLUCOSAMINE SULFATE 500 MG CAP PO SCH ×2 (08:30→21:05)
[2021-05-15] MEDS: CHOLECALCIFEROL 1,000 UNITS 25 MCG TAB PO SCH (08:30)
[2021-05-15] MEDS: lisinopril 2.5 MG TAB PO SCH (08:30)
[2021-05-15] MEDS: ENOXAPARIN INJ 40 MG/0.4 ML SYR SQ SCH ×2 (08:30→21:05)
[2021-05-15] MEDS: ASCORBIC ACID 500 MG TAB PO SCH ×2 (08:30→21:04)
[2021-05-15] MEDS: INSULIN ASPART 100 UNITS/ML 3 ML PEN SC SCH ×4 (08:33→21:31)
[2021-05-15] MEDS: ERTAPENEM SODIUM 1,000 MG in SODIUM CHLORIDE 0.9% 50 ML IV SCH (11:27)
--- NOTE | 2021-05-15 13:04 | Hospitalist Progress Note ---
Date of Service May 15, 2021 Assessment & Plan (1) Right calcaneal fracture: Plan: Continue with Tylenol, Which was now scheduled, and as needed tramadol for good pain control. Patient seems managed on Tylenol. Weightbearing as tolerated PT/OT ordered. Waffle boots ordered for prevention of skin breakdown on heels while in bed. Dr. Hernandez will help provide a postop shoe for her, but if not available she should still be OOB as tolerated, ambulating with walker. Please utilize her home shoes. (2) UTI due to extended-spectrum beta lactamase (ESBL) producing Escherichia coli: Plan: Ertapenem, cont contact precautions beyond covid precautions for MDR bacteria. ID consultation pending. (3) COVID-19: Plan: No evidence of pneumonia on chest x-ray and this vaccinated individual. Increased coughing today with repeat chest x-ray in no signs of pneumonia or pulmonary vascular congestion. She is Covid positive Reports a recent history of symptoms. Initially agreed with steroids and remdesivir, however, in the setting of an active UTI, will stop steroids. She is oxygenating well on room air. Benzonatate for the cough. (4) Hypoxia: Plan: Minimally present early in the admission and has resolved. (5) Hypothyroidism: Plan: Continue Synthroid per home regimen. (6) HTN (hypertension): Plan: At goal, continue home regimen including Lisinopril 2.5 p.o. daily, torsemide 20 mg p.o. daily, Toprol-XL 12.5 p.o. daily, potassium 20 mill equivalents p.o. twice daily, Aldactone 12.5 mg p.o. daily. It should be noted she also has a history of chronic diastolic and systolic heart failure. She is compensated at this time. These medications are also appropriate treatment for this issue. (7) DVT prophylaxis: Plan: Lovenox Full Disposition-pending ability to mobilize and PT/OT recommendations and ID recs. SNF authorization placed. DO David Raphaelfox [facility] Hospitalist Admission and Anticipated Discharge Date Admission Date: May 12, 2021 Subjective 85-year-old female Covid positive who had a mechanical fall at home resulting in a minimally displaced calcaneal fracture. worsened cough today-started roxane kam ID did not see her yet, continues on the ertapenem Didn't get out of bed today Didn't work with PT despite having home walker right outside the doorway. Review of Systems Review of Systems: At least ten systems were reviewed and negative except as indicated in HPI above. Physical Exam Physical Exam: CONSTITUTIONAL: morbid obesity, vitals as above, generally well-appearing, NAD EYES: normal conjunctivae, no scleral icterus ENT: external ear and nose normal, MMM NECK: trachea midline RESPIRATORY: clear to auscultation bilaterally, no crackles, rales or wheezes, normal respiratory effort CARDIOVASCULAR: regular rate and rhythm, S1 and 2 heard without murmurs, gallops or rubs, no JVD, chronic lymphedema of bilateral lower extremities, no pitting edema present. GASTROINTESTINAL: soft, nontender, nondistended, no guarding. Protuberant MUSCULOSKELETAL: strength 5/5 throughout, head is normocephalic and atraumatic SKIN: warm and dry, ecchymosis on distal plantar surface of right foot. External heel with no wound NEUROLOGIC: CN 2-12 grossly intact, normal cognition, normal speech, no tremor. No gross focal deficit. PSYCHIATRIC: alert cooperative and oriented to person, place and time. Results & Data Results & Data ([facility]) Vital Signs (Past 12 Hours) Vital Signs Temp Pulse Pulse Resp BP BP Pulse Ox 05/15/21 11:32 36.7 C 63 18 136/70 93 05/15/21 08:22 36.7 C 68 18 132/61 93 05/15/21 08:00 79 05/15/21 04:05 36.8 C 68 18 135/85 92 Laboratory Results BMP 05/15/21 07:09 Creatinine 1.07 Liver Function 05/15/21 Range/Units 07:09 AST 18 (15-37) U/L ALT 14 (12-78) U/L Medications Administered Current Inpatient Medications Acetaminophen (Acetaminophen 325 Mg Tab) 650 mg PO Q4H PRN PRN Reason: Pain or Fever Stop: 06/11/21 15:26 Last Admin: 05/12/21 17:49 Dose: 650 mg Documented by: Acetaminophen (Acetaminophen 500 Mg Tab) 1,000 mg PO Q8H [facility]ENT Stop: 06/13/21 15:59 Last Admin: 05/15/21 08:29 Dose: 1,000 mg Documented by: Ascorbic Acid (Ascorbic Acid 500 Mg Tab) 500 mg PO BID BRENT Stop: 06/12/21 20:59 Last Admin: 05/15/21 08:30 Dose: 500 mg Documented by: Docusate Sodium (Docusate Sodium 100 Mg Cap) 300 mg PO DAILY PRN PRN Reason: Constipation Stop: 06/11/21 15:26 Enoxaparin Sodium (Enoxaparin Inj 40 Mg/0.4 Ml Syr) 40 mg SQ Q12H [facility] Stop: 06/11/21 20:59 Last Admin: 05/15/21 08:30 Dose: 40 mg Documented by: Glucosamine Sulfate (Glucosamine Sulfate 500 Mg Cap) 500 mg PO BID [facility] Stop: 06/11/21 20:59 Last Admin: 05/15/21 08:30 Dose: 500 mg Documented by: Guaifenesin (Guaifenesin 600 Mg Tabcr) 600 mg PO Q12 [facility] Stop: 06/12/21 20:59 Last Admin: 05/15/21 08:29 Dose: 600 mg Documented by: Guaifenesin/Dextromethorphan (Guaifenesin/Dextrom Syrup 200mg/20mg 10ml Udc) 10 ml PO Q6H PRN PRN Reason: Cough Stop: 06/11/21 18:45 Last Admin: 05/14/21 08:32 Dose: 10 ml Documented by: Ertapenem 1,000 mg/ Sodium (Chloride) 60 mls @ 100 mls/hr IV Q24H [facility]; Protocol Stop: 05/24/21 10:59 Last Infusion: 05/15/21 12:38 Dose: Infused Documented by: Insulin Aspart (Insulin Aspart 100 Units/Ml 3 Ml Pen) 0 units SC ACHS [facility] Stop: 06/11/21 15:26 Last Admin: 05/15/21 11:42 Dose: 1 units Documented by: Levothyroxine Sodium (Levothyroxine Sodium 88 Mcg Tablet) 88 mcg PO DAILYBB [facility] Stop: 06/11/21 15:26 Last Admin: 05/15/21 06:16 Dose: 88 mcg Documented by: Lisinopril (Lisinopril 2.5 Mg Tab) 2.5 mg PO QAM [facility] Stop: 06/11/21 15:26 Last Admin: 05/15/21 08:30 Dose: 2.5 mg Documented by: Magnesium Oxide (Magnesium Oxide 400 Mg Tab) 400 mg PO QAM [facility] Stop: 06/11/21 15:26 Last Admin: 05/15/21 08:29 Dose: 400 mg Documented by: Menthol (Cough Drop (Sugar Free) Nicole 24 Nicole/1 Box) 1 nicole BUCCAL Q1H PRN PRN Reason: Sore Throat/cough Stop: 06/12/21 15:46 Metoprolol Succinate (Metoprolol Succ 25mg Ext Rel Tab) [facility] [place]: 06/11/21 15:26 Last Admin: 05/15/21 08:29 Dose: 12.5 mg Documented by: Multivitamins (Multivitamin Tab) 1 [facility] [place]: 06/11/21 15:26 Last Admin: 05/15/21 08:29 Dose: 1 tab Documented by: Nitroglycerin (Nitroglycerin Sl 0.4 Mg/Tab Tab) 0.4 mg SL UD PRN PRN Reason: Chest Pain Stop: 06/11/21 15:26 Ondansetron HCl (Ondansetron Inj 2 Mg/Ml 2 Ml Vial) 4 mg IV Q6H PRN PRN Reason: Nausea Stop: 06/11/21 15:26 Potassium Chloride (Potassium Chloride Crtab 20 Meq Tabcr) 20 meq PO BID [facility] Stop: 06/11/21 15:26 Last Admin: 05/15/21 08:29 Dose: 20 meq Documented by: Spironolactone (Spironolactone 12.5 Mg Tab) 12.[facility] [place]: 06/11/21 15:26 Last Admin: 05/15/21 08:29 Dose: 12.5 mg Documented by: Torsemide (Torsemide 20 Mg Tab) [facility] [place]: 06/11/21 15:26 Last Admin: 05/15/21 08:29 Dose: 20 mg Documented by: Tramadol HCl (Tramadol Hcl 50 Mg Tablet) 50 mg PO Q4H PRN PRN Reason: Pain Stop: 06/11/21 18:45 Last Admin: 05/12/21 19:49 Dose: 50 mg Documented by: Vitamin D (Cholecalciferol 1,000 Units 25 Mcg Tab) 1,000 [facility] [place]: 06/13/21 08:59 Last Admin: 05/15/21 08:30 Dose: 1,000 units Documented by: Zinc Sulfate (Zinc Sulfate 220 Mg Capsule) 220 mg PO [facility] Stop: 06/13/21 08:59 Last Admin: 05/15/21 08:29 Dose: 220 mg Documented by:
[2021-05-15] MEDS: BENZONATATE 100 MG CAPSULE PO SCH (21:40)
[2021-05-16] MEDS: ACETAMINOPHEN 500 MG TAB PO SCH ×4 (00:09→23:32)
[2021-05-16] MEDS: LEVOTHYROXINE SODIUM 88 MCG TABLET PO SCH (06:02)
[2021-05-16 07:34] LABS: Hematocrit (blood only) 39.2 % (37-47); Mean Corpuscular Hemoglobin 34.7 pg (25-34); Mean Corpuscular Hgb Conc 33.2 g/dL (32-36); Mean Corpuscular Volume 104.5 fL (80-100); Mean Platelet Volume 9.8 fL (7.4-10.4); Platelet Count 240 K/uL (130-400); RDW Standard Deviation 53.8 fL (36.4-46.3); Red Blood Count 3.75 M/uL (4.2-5.4); White Blood Count 5.29 K/uL (4.8-10.8)
[2021-05-16 08:04] LABS: BUN Creatinine Ratio 34.6 (10-20); Calcium 8.8 mg/dl (8.5-10.1); Creatinine Clr Calc Pharmacy 39.5 ml/min; Est GFR (African American) 46.3 ml/min; Potassium 4.5 mmol/L (3.5-5.1)
[2021-05-16] MEDS: guaiFENesin/DEXTROM SYRUP 200MG/20MG 10ML UDC PO PRN (08:55)
[2021-05-16] MEDS: METOPROLOL SUCC 25MG EXT REL TAB PO SCH (08:56)
[2021-05-16] MEDS: MULTIVITAMIN TAB PO SCH (08:57)
[2021-05-16] MEDS: SPIRONOLACTONE 12.5 MG TAB PO SCH (08:57)
[2021-05-16] MEDS: MAGNESIUM OXIDE 400 MG TAB PO SCH (08:58)
[2021-05-16] MEDS: CHOLECALCIFEROL 1,000 UNITS 25 MCG TAB PO SCH (08:58)
[2021-05-16] MEDS: TORSEMIDE 20 MG TAB PO SCH (08:58)
[2021-05-16] MEDS: POTASSIUM CHLORIDE CRTAB 20 MEQ TABCR PO SCH ×2 (08:59→21:34)
[2021-05-16] MEDS: GLUCOSAMINE SULFATE 500 MG CAP PO SCH ×2 (08:59→21:32)
[2021-05-16] MEDS: ASCORBIC ACID 500 MG TAB PO SCH ×2 (08:59→21:32)
[2021-05-16] MEDS: guaiFENesin 600 MG TABCR PO SCH ×2 (08:59→21:33)
[2021-05-16] MEDS: lisinopril 2.5 MG TAB PO SCH (09:00)
[2021-05-16] MEDS: ENOXAPARIN INJ 40 MG/0.4 ML SYR SQ SCH ×2 (09:00→21:34)
[2021-05-16] MEDS: ZINC SULFATE 220 MG CAPSULE PO SCH (09:01)
[2021-05-16] MEDS: INSULIN ASPART 100 UNITS/ML 3 ML PEN SC SCH ×4 (09:03→21:58)
[2021-05-16] MEDS: BENZONATATE 100 MG CAPSULE PO SCH ×3 (09:06→21:34)
[2021-05-16] MEDS: DOCUSATE SODIUM 100 MG CAP PO PRN (11:36)
[2021-05-16] MEDS: ERTAPENEM SODIUM 1,000 MG in SODIUM CHLORIDE 0.9% 50 ML IV SCH (12:29)
--- NOTE | 2021-05-16 15:27 | Hospitalist Progress Note ---
Date of Service May 16, 2021 Assessment & Plan (1) Right calcaneal fracture: Plan: Minimally displaced calcaneal fracture Secondary to fall Conservative management Pain control Slow advancement with weightbearing as tolerated Ice and elevation Appreciate orthopedics input Needs follow-up with Dr. Hernandez in 4 to 6 weeks with repeat x-rays PT OT Fall precautions (2) UTI due to extended-spectrum beta lactamase (ESBL) producing Escherichia coli: Plan: Urine culture growing ESBL E. coli Currently on ertapenem ID consult pending (3) COVID-19: Plan: --CXR: Cardiomegaly and cardiac pacemaker. There is no radiographic evidence of congestive failure. No airspace consolidation or large pleural effusion is identified. Taken COVID-19 vaccine Saturating fairly well on room air Monitor (4) Hypoxia: Plan: Minimally present early in the admission Resolved (5) Hypothyroidism: Plan: Continue levothyroxine (6) HTN (hypertension): Plan: Bp stable Continue home medications with holding parameters Monitor (7) DVT prophylaxis: Plan: Lovenox SQ Code Status Full Code Admission and Anticipated Discharge Date Admission Date: May 12, 2021 Subjective Patient is seen and examined bedside States having right heel pain with ambulation Also reports minimal cough Otherwise no complaints Denies chest pain, dyspnea, dizziness, nausea, abdominal pain Review of Systems Review of Systems: All systems reviewed & are unremarkable except as noted in Subjective Physical Exam Physical Exam: Physical Exam: Vitals signs as noted above General Appearance:Morbidly Obese, no apparent distress Head: normocephalic, Atraumatic Eyes: normal inspection, EOMI, PERRL Neck: supple, Trachea midline Respiratory/Chest: Normal breath sounds, CTA, No accessory muscle use Cardiovascular: S1, S2, No murmur Abdomen/GI:Soft, Non tender, Bowel sounds present Extremities/Musculoskeletal:normal inspection, B/L Lymphedema Neurologic/Psych:AAOX3, grossly no focal neurological deficits Skin: normal color, warm Results & Data Results & Data ([facility]) Vital Signs (Past 12 Hours) Vital Signs Temp Pulse Resp BP BP Pulse Ox 05/16/21 14:19 36.5 C 76 18 107/75 93 05/16/21 08:45 36.5 C 69 18 110/70 94 Laboratory Results Short CBC 05/16/21 Range/Units 07:14 WBC 5.29 (4.8-10.8) K/uL Hgb 13.0 (12.0-16.0) g/dL Hct 39.2 (37-47) % Plt Count 240 (130-400) K/uL [facility] 05/16/21 07:14 Sodium 136 Potassium 4.5 Chloride 104 Carbon Dioxide 24 BUN 43 H Creatinine 1.23 H Glucose 104 H Calcium 8.8
[2021-05-17] MEDS: LEVOTHYROXINE SODIUM 88 MCG TABLET PO SCH (05:05)
[2021-05-17] MEDS: SPIRONOLACTONE 12.5 MG TAB PO SCH (08:30)
[2021-05-17] MEDS: MAGNESIUM OXIDE 400 MG TAB PO SCH (08:31)
[2021-05-17] MEDS: MULTIVITAMIN TAB PO SCH (08:31)
[2021-05-17] MEDS: ZINC SULFATE 220 MG CAPSULE PO SCH (08:32)
[2021-05-17] MEDS: CHOLECALCIFEROL 1,000 UNITS 25 MCG TAB PO SCH (08:32)
[2021-05-17] MEDS: TORSEMIDE 20 MG TAB PO SCH (08:32)
[2021-05-17] MEDS: METOPROLOL SUCC 25MG EXT REL TAB PO SCH (08:32)
[2021-05-17] MEDS: GLUCOSAMINE SULFATE 500 MG CAP PO SCH ×2 (08:33→21:55)
[2021-05-17] MEDS: guaiFENesin 600 MG TABCR PO SCH ×2 (08:33→21:56)
[2021-05-17] MEDS: lisinopril 2.5 MG TAB PO SCH (08:33)
[2021-05-17] MEDS: ASCORBIC ACID 500 MG TAB PO SCH ×2 (08:33→21:56)
[2021-05-17] MEDS: ACETAMINOPHEN 500 MG TAB PO SCH ×3 (08:34→23:00)
[2021-05-17] MEDS: ENOXAPARIN INJ 40 MG/0.4 ML SYR SQ SCH ×2 (08:34→21:53)
[2021-05-17] MEDS: INSULIN ASPART 100 UNITS/ML 3 ML PEN SC SCH ×4 (08:37→22:40)
[2021-05-17 09:02] LABS: BUN Creatinine Ratio 36.1 (10-20); Calcium 8.9 mg/dl (8.5-10.1); Creatinine Clr Calc Pharmacy 43.8 ml/min; Est GFR (African American) 52.4 ml/min; Est GFR (Non-African American) 45.2 ml/min; Potassium 4.3 mmol/L (3.5-5.1)
[2021-05-17] MEDS: POTASSIUM CHLORIDE CRTAB 20 MEQ TABCR PO SCH ×2 (10:49→21:56)
[2021-05-17] MEDS: BENZONATATE 100 MG CAPSULE PO SCH ×3 (10:49→21:56)
[2021-05-17] MEDS: DOCUSATE SODIUM 100 MG CAP PO PRN (10:49)
[2021-05-17] MEDS: ERTAPENEM SODIUM 1,000 MG in SODIUM CHLORIDE 0.9% 50 ML IV SCH (10:50)
[2021-05-17] MEDS: POLYETHYLENE (MIRALAX) 17 GM PACK PO SCH (15:59)
--- NOTE | 2021-05-17 16:27 | Hospitalist Progress Note ---
Date of Service May 17, 2021 Assessment & Plan (1) Right calcaneal fracture: Plan: Minimally displaced calcaneal fracture Secondary to fall Conservative management Pain control Slow advancement with weightbearing as tolerated Ice and elevation Appreciate orthopedics input Needs follow-up with Dr. Hernandez in 4 to 6 weeks with repeat x-rays PT OT Fall precautions (2) UTI due to extended-spectrum beta lactamase (ESBL) producing Escherichia coli: Plan: Urine culture growing ESBL E. coli Continue IV Ertapenem Day 4/5 await ID consult Constipation Started on bowel regimen (3) COVID-19: Plan: --CXR: Cardiomegaly and cardiac pacemaker. There is no radiographic evidence of congestive failure. No airspace consolidation or large pleural effusion is identified. Taken COVID-19 vaccine Saturating fairly well on room air Monitor (4) Hypoxia: Plan: Minimally present early in the admission Resolved (5) Hypothyroidism: Plan: Continue levothyroxine (6) HTN (hypertension): Plan: Bp relative low Hold Lisinopril Continue other meds with holding parameters Monitor (7) DVT prophylaxis: Plan: Lovenox SQ Code Status Full Code Admission and Anticipated Discharge Date Admission Date: May 12, 2021 Subjective Patient is seen and examined bedside Reports constipation Also states having arthritic pain Minimal cough with expectoration States having nausea overnight which resolved Tolerating diet Denies chest pain, dyspnea, dizziness, abdominal pain Review of Systems Review of Systems: All systems reviewed & are unremarkable except as noted in Subjective Physical Exam Physical Exam: Physical Exam: Vitals signs as noted above General Appearance:Morbidly Obese, no apparent distress Head: normocephalic, Atraumatic Eyes: normal inspection, EOMI, PERRL Neck: supple, Trachea midline Respiratory/Chest: Normal breath sounds, CTA, No accessory muscle use Cardiovascular: S1, S2, No murmur Abdomen/GI:Soft, Non tender, Bowel sounds present Extremities/Musculoskeletal:normal inspection, B/L Lymphedema Neurologic/Psych:AAOX3, grossly no focal neurological deficits Skin: normal color, warm Results & Data Results & Data ([facility]) Vital Signs (Past 12 Hours) Vital Signs Temp Pulse Resp BP BP Pulse Ox 05/17/21 15:01 36.4 C L 82 18 88/64 L 94 05/17/21 08:29 36.6 C 60 16 115/70 93 Laboratory Results BMP 05/17/21 08:07 Sodium 139 Potassium 4.3 Chloride 106 Carbon Dioxide 25 BUN 40 H Creatinine 1.11 Glucose 120 H Calcium 8.9
[2021-05-17] MEDS: SENNA 8.6 MG TAB PO SCH (21:54)
[2021-05-18] MEDS: LEVOTHYROXINE SODIUM 88 MCG TABLET PO SCH (05:52)
[2021-05-18] MEDS: DOCUSATE SODIUM 100 MG CAP PO SCH (09:14)
[2021-05-18] MEDS: POTASSIUM CHLORIDE CRTAB 20 MEQ TABCR PO SCH ×2 (09:14→21:29)
[2021-05-18] MEDS: BENZONATATE 100 MG CAPSULE PO SCH ×3 (09:15→21:10)
[2021-05-18] MEDS: ACETAMINOPHEN 500 MG TAB PO SCH ×3 (09:15→23:48)
[2021-05-18] MEDS: ENOXAPARIN INJ 40 MG/0.4 ML SYR SQ SCH ×2 (09:16→21:09)
[2021-05-18] MEDS: POLYETHYLENE (MIRALAX) 17 GM PACK PO SCH (09:17)
[2021-05-18] MEDS: CHOLECALCIFEROL 1,000 UNITS 25 MCG TAB PO SCH (09:17)
[2021-05-18] MEDS: guaiFENesin/DEXTROM SYRUP 200MG/20MG 10ML UDC PO PRN (09:17)
[2021-05-18] MEDS: METOPROLOL SUCC 25MG EXT REL TAB PO SCH (09:18)
[2021-05-18] MEDS: GLUCOSAMINE SULFATE 500 MG CAP PO SCH ×2 (09:18→21:10)
[2021-05-18] MEDS: guaiFENesin 600 MG TABCR PO SCH ×2 (09:18→21:10)
[2021-05-18] MEDS: MAGNESIUM OXIDE 400 MG TAB PO SCH (09:18)
[2021-05-18] MEDS: TORSEMIDE 20 MG TAB PO SCH (09:19)
[2021-05-18] MEDS: ZINC SULFATE 220 MG CAPSULE PO SCH (09:19)
[2021-05-18] MEDS: SPIRONOLACTONE 12.5 MG TAB PO SCH (09:19)
[2021-05-18] MEDS: ASCORBIC ACID 500 MG TAB PO SCH ×2 (09:20→21:11)
[2021-05-18] MEDS: MULTIVITAMIN TAB PO SCH (09:20)
[2021-05-18] MEDS: INSULIN ASPART 100 UNITS/ML 3 ML PEN SC SCH ×4 (09:28→21:20)
[2021-05-18] MEDS: ERTAPENEM SODIUM 1,000 MG in SODIUM CHLORIDE 0.9% 50 ML IV SCH (12:36)
--- NOTE | 2021-05-18 15:43 | Hospitalist Progress Note ---
Date of Service May 18, 2021 Assessment & Plan (1) Right calcaneal fracture: Plan: Minimally displaced calcaneal fracture Secondary to fall Conservative management Pain control Slow advancement with weightbearing as tolerated Ice and elevation Appreciate orthopedics input Needs follow-up with Dr. Hernandez in 4 to 6 weeks with repeat x-rays PT OT Fall precautions Schulz to discharge to Rehab when accepted (2) UTI due to extended-spectrum beta lactamase (ESBL) producing Escherichia coli: Plan: Urine culture growing ESBL E. coli Completed 5 day course of IV Ertapenem Appreciate ID Input Constipation Continue bowel regimen (3) COVID-19: Plan: --CXR: Cardiomegaly and cardiac pacemaker. There is no radiographic evidence of congestive failure. No airspace consolidation or large pleural effusion is identified. Taken COVID-19 vaccine Saturating fairly well on room air Monitor (4) Hypoxia: Plan: Minimally present early in the admission Resolved (5) Hypothyroidism: Plan: Continue levothyroxine (6) HTN (hypertension): Plan: Bp Variable Hold Lisinopril for now Continue other meds with holding parameters Monitor (7) DVT prophylaxis: Plan: Lovenox SQ Code Status Full Code Admission and Anticipated Discharge Date Admission Date: May 12, 2021 Subjective Patient is seen and examined bedside Reports leg pain is improving States having nausea + Flatus, No BM this morning Minimal persistent cough Denies chest pain, dyspnea, dizziness, abdominal pain, vomiting Review of Systems Review of Systems: All systems reviewed & are unremarkable except as noted in Subjective Physical Exam Physical Exam: Physical Exam: Vitals signs as noted above General Appearance:Morbidly Obese, no apparent distress Head: normocephalic, Atraumatic Eyes: normal inspection, EOMI, PERRL Neck: supple, Trachea midline Respiratory/Chest: Normal breath sounds, CTA, No accessory muscle use Cardiovascular: S1, S2, No murmur Abdomen/GI:Soft, Non tender, Bowel sounds present Extremities/Musculoskeletal:normal inspection, B/L Lymphedema Neurologic/Psych:AAOX3, grossly no focal neurological deficits Skin: normal color, warm Results & Data Results & Data ([facility]) Vital Signs (Past 12 Hours) Vital Signs Temp Pulse Resp BP Pulse Ox 05/18/21 08:38 36.8 C 64 16 138/65 93
[2021-05-18] MEDS: SENNA 8.6 MG TAB PO SCH (21:11)
[2021-05-19] MEDS: LEVOTHYROXINE SODIUM 88 MCG TABLET PO SCH (05:51)
[2021-05-19] MEDS: ACETAMINOPHEN 500 MG TAB PO SCH ×2 (09:02→17:39)
[2021-05-19] MEDS: BENZONATATE 100 MG CAPSULE PO SCH ×3 (09:03→21:44)
[2021-05-19] MEDS: ASCORBIC ACID 500 MG TAB PO SCH ×2 (09:03→21:19)
[2021-05-19] MEDS: DOCUSATE SODIUM 100 MG CAP PO SCH (09:04)
[2021-05-19] MEDS: CHOLECALCIFEROL 1,000 UNITS 25 MCG TAB PO SCH (09:04)
[2021-05-19] MEDS: ENOXAPARIN INJ 40 MG/0.4 ML SYR SQ SCH ×2 (09:04→21:17)
[2021-05-19] MEDS: guaiFENesin 600 MG TABCR PO SCH ×2 (09:05→21:18)
[2021-05-19] MEDS: GLUCOSAMINE SULFATE 500 MG CAP PO SCH ×2 (09:05→21:18)
[2021-05-19] MEDS: MULTIVITAMIN TAB PO SCH (09:06)
[2021-05-19] MEDS: METOPROLOL SUCC 25MG EXT REL TAB PO SCH (09:06)
[2021-05-19] MEDS: MAGNESIUM OXIDE 400 MG TAB PO SCH (09:06)
[2021-05-19] MEDS: ZINC SULFATE 220 MG CAPSULE PO SCH (09:07)
[2021-05-19] MEDS: TORSEMIDE 20 MG TAB PO SCH (09:07)
[2021-05-19] MEDS: POTASSIUM CHLORIDE CRTAB 20 MEQ TABCR PO SCH ×2 (09:07→21:44)
[2021-05-19] MEDS: SPIRONOLACTONE 12.5 MG TAB PO SCH (09:07)
[2021-05-19] MEDS: INSULIN ASPART 100 UNITS/ML 3 ML PEN SC SCH ×4 (09:34→21:29)
[2021-05-19] MEDS: POLYETHYLENE (MIRALAX) 17 GM PACK PO SCH (10:03)
[2021-05-19] MEDS ORDERED: bisacodyL 10 MG SUPP PR ONE (11:48)
[2021-05-19] MEDS ORDERED: bisacodyL 10 MG SUPP PR PRN (11:48)
--- NOTE | 2021-05-19 17:19 | Hospitalist Progress Note ---
Date of Service May 19, 2021 Assessment & Plan (1) Right calcaneal fracture: Plan: Minimally displaced calcaneal fracture Secondary to fall Conservative management Pain control Slow advancement with weightbearing as tolerated Ice and elevation Appreciate orthopedics input Needs follow-up with Dr. Hernandez in 4 to 6 weeks with repeat x-rays PT OT Fall precautions Cshulz to discharge to Rehab when accepted Waiting for placement (2) UTI due to extended-spectrum beta lactamase (ESBL) producing Escherichia coli: Plan: Urine culture growing ESBL E. coli Completed 5 day course of IV Ertapenem Appreciate ID Input Constipation Continue bowel regimen Add Dulcolax (3) COVID-19: Plan: --CXR: Cardiomegaly and cardiac pacemaker. There is no radiographic evidence of congestive failure. No airspace consolidation or large pleural effusion is identified. Taken COVID-19 vaccine Saturating fairly well on room air Monitor (4) Hypoxia: Plan: Minimally present early in the admission Resolved (5) Hypothyroidism: Plan: Continue levothyroxine (6) HTN (hypertension): Plan: Bp Variable Hold Lisinopril for now Continue other meds with holding parameters Monitor (7) DVT prophylaxis: Plan: Lovenox SQ Code Status Full Code Admission and Anticipated Discharge Date Admission Date: May 12, 2021 Subjective Patient is seen and examined bedside No new complaints leg pain is controlled Minimal persistent cough Denies chest pain, dyspnea, dizziness, abdominal pain, vomiting No BM this morning Review of Systems Review of Systems: All systems reviewed & are unremarkable except as noted in Subjective Physical Exam Physical Exam: Physical Exam: Vitals signs as noted above General Appearance:Morbidly Obese, no apparent distress Head: normocephalic, Atraumatic Eyes: normal inspection, EOMI, PERRL Neck: supple, Trachea midline Respiratory/Chest: Normal breath sounds, CTA, No accessory muscle use Cardiovascular: S1, S2, No murmur Abdomen/GI:Soft, Non tender, Bowel sounds present Extremities/Musculoskeletal:normal inspection, B/L Lymphedema Neurologic/Psych:AAOX3, grossly no focal neurological deficits Skin: normal color, warm Results & Data Results & Data ([facility]) Vital Signs (Past 12 Hours) Vital Signs Temp Pulse Resp BP Pulse Ox 05/19/21 09:09 36.6 C 71 18 137/80 94
[2021-05-19] MEDS: SENNA 8.6 MG TAB PO SCH (21:19)
[2021-05-20] MEDS: ACETAMINOPHEN 500 MG TAB PO SCH ×4 (01:15→23:37)
[2021-05-20] MEDS: LEVOTHYROXINE SODIUM 88 MCG TABLET PO SCH (05:38)
[2021-05-20] MEDS: INSULIN ASPART 100 UNITS/ML 3 ML PEN SC SCH ×4 (08:54→21:01)
[2021-05-20] MEDS: POTASSIUM CHLORIDE CRTAB 20 MEQ TABCR PO SCH ×2 (08:55→20:42)
[2021-05-20] MEDS: BENZONATATE 100 MG CAPSULE PO SCH ×3 (08:55→20:42)
[2021-05-20] MEDS: GLUCOSAMINE SULFATE 500 MG CAP PO SCH ×2 (08:56→20:42)
[2021-05-20] MEDS: CHOLECALCIFEROL 1,000 UNITS 25 MCG TAB PO SCH (08:56)
[2021-05-20] MEDS: ENOXAPARIN INJ 40 MG/0.4 ML SYR SQ SCH ×2 (08:56→20:41)
[2021-05-20] MEDS: DOCUSATE SODIUM 100 MG CAP PO SCH (08:56)
[2021-05-20] MEDS: MULTIVITAMIN TAB PO SCH (08:57)
[2021-05-20] MEDS: guaiFENesin 600 MG TABCR PO SCH ×2 (08:57→20:42)
[2021-05-20] MEDS: METOPROLOL SUCC 25MG EXT REL TAB PO SCH (08:57)
[2021-05-20] MEDS: MAGNESIUM OXIDE 400 MG TAB PO SCH (08:57)
[2021-05-20] MEDS: TORSEMIDE 20 MG TAB PO SCH (08:58)
[2021-05-20] MEDS: POLYETHYLENE (MIRALAX) 17 GM PACK PO SCH (08:58)
[2021-05-20] MEDS: SPIRONOLACTONE 12.5 MG TAB PO SCH (08:58)
[2021-05-20] MEDS: ZINC SULFATE 220 MG CAPSULE PO SCH (08:58)
[2021-05-20] MEDS: ASCORBIC ACID 500 MG TAB PO SCH ×2 (12:46→20:41)
--- NOTE | 2021-05-20 16:10 | Hospitalist Progress Note ---
Date of Service May 20, 2021 Assessment & Plan (1) Right calcaneal fracture: Plan: Minimally displaced calcaneal fracture Secondary to fall Conservative management Pain control Slow advancement with weightbearing as tolerated Ice and elevation Appreciate orthopedics input Continue PT OT Fall precautions Schulz to discharge to Rehab when accepted Needs follow-up with Dr. Hernandez in 4 to 6 weeks with repeat x-rays (2) UTI due to extended-spectrum beta lactamase (ESBL) producing Escherichia coli: Plan: Urine culture growing ESBL E. coli Completed 5 day course of IV Ertapenem Appreciate ID Input Constipation Continue bowel regimen Add Dulcolax Had small BM overnight (3) COVID-19: Plan: --CXR: Cardiomegaly and cardiac pacemaker. There is no radiographic evidence of congestive failure. No airspace consolidation or large pleural effusion is identified. Taken COVID-19 vaccine Saturating fairly well on room air Monitor (4) Hypoxia: Plan: Minimally present early in the admission Resolved (5) Hypothyroidism: Plan: Continue levothyroxine (6) HTN (hypertension): Plan: Bp Variable Hold Lisinopril for now Continue other meds with holding parameters Monitor (7) DVT prophylaxis: Plan: Lovenox SQ Code Status Full Code Disposition SNF when accepted Admission and Anticipated Discharge Date Admission Date: May 12, 2021 Subjective Patient is seen and examined bedside States having nausea intermittently with certain foods Had small bowel movement overnight Cough continues to improve Waiting for rehab placement leg pain is controlled Denies chest pain, dyspnea, dizziness, abdominal pain, vomiting Review of Systems Review of Systems: All systems reviewed & are unremarkable except as noted in Subjective Physical Exam Physical Exam: Physical Exam: Vitals signs as noted above General Appearance:Morbidly Obese, no apparent distress Head: normocephalic, Atraumatic Eyes: normal inspection, EOMI, PERRL Neck: supple, Trachea midline Respiratory/Chest: Normal breath sounds, CTA, No accessory muscle use Cardiovascular: S1, S2, No murmur Abdomen/GI:Soft, Non tender, Bowel sounds present Extremities/Musculoskeletal:normal inspection, B/L Lymphedema Neurologic/Psych:AAOX3, grossly no focal neurological deficits Skin: normal color, warm Results & Data Results & Data ([facility]) Vital Signs (Past 12 Hours) Vital Signs Temp Pulse Resp BP Pulse Ox 05/20/21 09:00 37.2 C 82 14 119/78 93
[2021-05-20] MEDS: SENNA 8.6 MG TAB PO SCH (20:41)
[2021-05-21] MEDS: LEVOTHYROXINE SODIUM 88 MCG TABLET PO SCH (05:47)
[2021-05-21] MEDS: MAGNESIUM OXIDE 400 MG TAB PO SCH (08:58)
[2021-05-21] MEDS: ENOXAPARIN INJ 40 MG/0.4 ML SYR SQ SCH ×2 (08:58→20:50)
[2021-05-21] MEDS: METOPROLOL SUCC 25MG EXT REL TAB PO SCH (08:59)
[2021-05-21] MEDS: ZINC SULFATE 220 MG CAPSULE PO SCH (08:59)
[2021-05-21] MEDS: POLYETHYLENE (MIRALAX) 17 GM PACK PO SCH (08:59)
[2021-05-21] MEDS: guaiFENesin/DEXTROM SYRUP 200MG/20MG 10ML UDC PO PRN (08:59)
[2021-05-21] MEDS: ASCORBIC ACID 500 MG TAB PO SCH ×2 (08:59→20:50)
[2021-05-21] MEDS: guaiFENesin 600 MG TABCR PO SCH ×2 (09:00→20:50)
[2021-05-21] MEDS: TORSEMIDE 20 MG TAB PO SCH (09:00)
[2021-05-21] MEDS: GLUCOSAMINE SULFATE 500 MG CAP PO SCH ×2 (09:00→20:50)
[2021-05-21] MEDS: SPIRONOLACTONE 12.5 MG TAB PO SCH (09:00)
[2021-05-21] MEDS: MULTIVITAMIN TAB PO SCH (09:00)
[2021-05-21] MEDS: CHOLECALCIFEROL 1,000 UNITS 25 MCG TAB PO SCH (09:00)
[2021-05-21] MEDS: DOCUSATE SODIUM 100 MG CAP PO SCH (09:01)
[2021-05-21] MEDS: INSULIN ASPART 100 UNITS/ML 3 ML PEN SC SCH ×4 (09:23→21:10)
[2021-05-21] MEDS: ACETAMINOPHEN 500 MG TAB PO SCH ×3 (10:08→23:09)
[2021-05-21] MEDS: POTASSIUM CHLORIDE CRTAB 20 MEQ TABCR PO SCH ×2 (10:08→20:51)
[2021-05-21] MEDS: BENZONATATE 100 MG CAPSULE PO SCH ×3 (10:08→20:50)
[2021-05-21] MEDS: lisinopril 2.5 MG TAB PO SCH (10:09)
--- NOTE | 2021-05-21 15:56 | Hospitalist Progress Note ---
Date of Service May 21, 2021 Assessment & Plan (1) Right calcaneal fracture: Plan: Minimally displaced calcaneal fracture Secondary to fall Conservative management Pain control Slow advancement with weightbearing as tolerated Ice and elevation Appreciate orthopedics input Continue PT OT Fall precautions Needs follow-up with Dr. Hernandez in 4 to 6 weeks with repeat x-rays Waiting for rehab placement (2) UTI due to extended-spectrum beta lactamase (ESBL) producing Escherichia coli: Plan: Urine culture growing ESBL E. coli Completed 5 day course of IV Ertapenem Appreciate ID Input Constipation Continue bowel regimen Add Dulcolax (3) COVID-19: Plan: --CXR: Cardiomegaly and cardiac pacemaker. There is no radiographic evidence of congestive failure. No airspace consolidation or large pleural effusion is identified. Taken COVID-19 vaccine Saturating fairly well on room air Monitor (4) Hypoxia: Plan: Minimally present early in the admission Resolved (5) Hypothyroidism: Plan: Continue levothyroxine (6) HTN (hypertension): Plan: Bp Variable Start lisinopril Continue metoprolol Monitor (7) DVT prophylaxis: Plan: Lovenox SQ Code Status Full Code Disposition SNF when accepted Admission and Anticipated Discharge Date Admission Date: May 12, 2021 Subjective Patient is seen and examined bedside Less nauseous today No new complaints Had PT earlier today Waiting for rehab placement leg pain is controlled Denies chest pain, dyspnea, dizziness, abdominal pain, vomiting Review of Systems Review of Systems: All systems reviewed & are unremarkable except as noted in Subjective Physical Exam Physical Exam: Physical Exam: Vitals signs as noted above General Appearance:Morbidly Obese, no apparent distress Head: normocephalic, Atraumatic Eyes: normal inspection, EOMI, PERRL Neck: supple, Trachea midline Respiratory/Chest: Normal breath sounds, CTA, No accessory muscle use Cardiovascular: S1, S2, No murmur Abdomen/GI:Soft, Non tender, Bowel sounds present Extremities/Musculoskeletal:normal inspection, B/L Lymphedema Neurologic/Psych:AAOX3, grossly no focal neurological deficits Skin: normal color, warm Results & Data Results & Data ([facility]) Vital Signs (Past 12 Hours) Vital Signs Temp Pulse Resp BP Pulse Ox 05/21/21 10:09 108/64 05/21/21 08:54 36.7 C 71 16 116/75 92
[2021-05-21] MEDS: SENNA 8.6 MG TAB PO SCH (20:51)
[2021-05-22] MEDS: LEVOTHYROXINE SODIUM 88 MCG TABLET PO SCH (05:33)
[2021-05-22] MEDS: ZINC SULFATE 220 MG CAPSULE PO SCH (09:03)
[2021-05-22] MEDS: SPIRONOLACTONE 12.5 MG TAB PO SCH (09:04)
[2021-05-22] MEDS: DOCUSATE SODIUM 100 MG CAP PO SCH (09:04)
[2021-05-22] MEDS: CHOLECALCIFEROL 1,000 UNITS 25 MCG TAB PO SCH (09:05)
[2021-05-22] MEDS: MULTIVITAMIN TAB PO SCH (09:05)
[2021-05-22] MEDS: MAGNESIUM OXIDE 400 MG TAB PO SCH (09:06)
[2021-05-22] MEDS: TORSEMIDE 20 MG TAB PO SCH (09:06)
[2021-05-22] MEDS: guaiFENesin 600 MG TABCR PO SCH ×2 (09:07→20:04)
[2021-05-22] MEDS: GLUCOSAMINE SULFATE 500 MG CAP PO SCH ×2 (09:07→20:05)
[2021-05-22] MEDS: METOPROLOL SUCC 25MG EXT REL TAB PO SCH (09:07)
[2021-05-22] MEDS: ASCORBIC ACID 500 MG TAB PO SCH ×2 (09:08→20:05)
[2021-05-22] MEDS: lisinopril 2.5 MG TAB PO SCH (09:09)
[2021-05-22] MEDS: POLYETHYLENE (MIRALAX) 17 GM PACK PO SCH (09:11)
[2021-05-22] MEDS: ENOXAPARIN INJ 40 MG/0.4 ML SYR SQ SCH ×2 (09:11→20:04)
[2021-05-22] MEDS: POTASSIUM CHLORIDE CRTAB 20 MEQ TABCR PO SCH ×2 (09:13→20:04)
[2021-05-22] MEDS: ACETAMINOPHEN 500 MG TAB PO SCH ×3 (09:13→23:13)
[2021-05-22] MEDS: BENZONATATE 100 MG CAPSULE PO SCH ×3 (09:13→20:04)
[2021-05-22] MEDS: INSULIN ASPART 100 UNITS/ML 3 ML PEN SC SCH ×4 (10:09→20:41)
--- NOTE | 2021-05-22 16:36 | Hospitalist Progress Note ---
Date of Service May 22, 2021 Assessment & Plan (1) Right calcaneal fracture: Plan: Minimally displaced calcaneal fracture Secondary to fall Conservative management Pain control Slow advancement with weightbearing as tolerated Ice and elevation Appreciate orthopedics input Continue PT OT Fall precautions Needs follow-up with Dr. Hernandez in 4 to 6 weeks with repeat x-rays Waiting for rehab placement Case management to help with discharge planning (2) UTI due to extended-spectrum beta lactamase (ESBL) producing Escherichia coli: Plan: Urine culture growing ESBL E. coli Completed 5 day course of IV Ertapenem Appreciate ID Input Constipation Continue bowel regimen Add Dulcolax (3) COVID-19: Plan: --CXR: Cardiomegaly and cardiac pacemaker. There is no radiographic evidence of congestive failure. No airspace consolidation or large pleural effusion is identified. Taken COVID-19 vaccine Saturating fairly well on room air Monitor (4) Hypoxia: Plan: Minimally present early in the admission Resolved (5) Hypothyroidism: Plan: Continue levothyroxine (6) HTN (hypertension): Plan: Bp Variable Continue metoprolol, lisinopril with holding parameters Monitor BP Adjust medications as needed (7) DVT prophylaxis: Plan: Lovenox SQ Code Status Full Code Disposition SNF when accepted Admission and Anticipated Discharge Date Admission Date: May 12, 2021 Subjective Patient is seen and examined bedside Nausea improved [place] dizzy overnight which resolved leg pain is controlled Denies chest pain, dyspnea, dizziness, abdominal pain, vomiting Waiting for rehab placement Review of Systems Review of Systems: All systems reviewed & are unremarkable except as noted in Subjective Physical Exam Physical Exam: Physical Exam: Vitals signs as noted above General Appearance:Morbidly Obese, no apparent distress Head: normocephalic, Atraumatic Eyes: normal inspection, EOMI, PERRL Neck: supple, Trachea midline Respiratory/Chest: Normal breath sounds, CTA, No accessory muscle use Cardiovascular: S1, S2, No murmur Abdomen/GI:Soft, Non tender, Bowel sounds present Extremities/Musculoskeletal:normal inspection, B/L Lymphedema Neurologic/Psych:AAOX3, grossly no focal neurological deficits Skin: normal color, warm Results & Data Results & Data ([facility]) Vital Signs (Past 12 Hours) Vital Signs Temp Pulse Resp BP Pulse Ox 05/22/21 14:39 36.4 C L 71 18 105/69 93 09/28/21 08:48 36.9 C 68 20 116/73 92
[2021-05-22] MEDS: SENNA 8.6 MG TAB PO SCH (20:05)
[2021-05-23] MEDS: LEVOTHYROXINE SODIUM 88 MCG TABLET PO SCH (06:06)
[2021-05-23] MEDS: SPIRONOLACTONE 12.5 MG TAB PO SCH (09:14)
[2021-05-23] MEDS: lisinopril 2.5 MG TAB PO SCH (09:14)
[2021-05-23] MEDS: METOPROLOL SUCC 25MG EXT REL TAB PO SCH (09:14)
[2021-05-23] MEDS: MAGNESIUM OXIDE 400 MG TAB PO SCH (09:14)
[2021-05-23] MEDS: CHOLECALCIFEROL 1,000 UNITS 25 MCG TAB PO SCH (09:14)
[2021-05-23] MEDS: ACETAMINOPHEN 500 MG TAB PO SCH ×3 (09:14→23:42)
[2021-05-23] MEDS: MULTIVITAMIN TAB PO SCH (09:14)
[2021-05-23] MEDS: ZINC SULFATE 220 MG CAPSULE PO SCH (09:15)
[2021-05-23] MEDS: POTASSIUM CHLORIDE CRTAB 20 MEQ TABCR PO SCH ×2 (09:15→20:17)
[2021-05-23] MEDS: GLUCOSAMINE SULFATE 500 MG CAP PO SCH ×2 (09:15→20:17)
[2021-05-23] MEDS: guaiFENesin 600 MG TABCR PO SCH ×2 (09:15→20:19)
[2021-05-23] MEDS: ASCORBIC ACID 500 MG TAB PO SCH ×2 (09:15→20:19)
[2021-05-23] MEDS: BENZONATATE 100 MG CAPSULE PO SCH ×3 (09:15→20:17)
[2021-05-23] MEDS: TORSEMIDE 20 MG TAB PO SCH (09:15)
[2021-05-23] MEDS: DOCUSATE SODIUM 100 MG CAP PO SCH (09:16)
[2021-05-23] MEDS: POLYETHYLENE (MIRALAX) 17 GM PACK PO SCH (09:16)
[2021-05-23] MEDS: ENOXAPARIN INJ 40 MG/0.4 ML SYR SQ SCH ×2 (09:21→20:17)
[2021-05-23] MEDS: INSULIN ASPART 100 UNITS/ML 3 ML PEN SC SCH ×4 (10:04→20:19)
--- NOTE | 2021-05-23 13:02 | Hospitalist Progress Note ---
Date of Service May 23, 2021 Assessment & Plan (1) Right calcaneal fracture: Plan: Minimally displaced calcaneal fracture Secondary to fall Conservative management Pain control Slow advancement with weightbearing as tolerated Ice and elevation Appreciate orthopedics input Continue PT OT Fall precautions Needs follow-up with Dr. Hernandez in 4 to 6 weeks with repeat x-rays Waiting for rehab placement Case management working on rehab placement (2) UTI due to extended-spectrum beta lactamase (ESBL) producing Escherichia coli: Plan: Urine culture growing ESBL E. coli Completed 5 day course of IV Ertapenem Appreciate ID Input Constipation Continue bowel regimen Add Dulcolax (3) COVID-19: Plan: --CXR: Cardiomegaly and cardiac pacemaker. There is no radiographic evidence of congestive failure. No airspace consolidation or large pleural effusion is identified. Taken COVID-19 vaccine Saturating fairly well on room air Monitor (4) Hypoxia: Plan: Minimally present early in the admission Resolved (5) Hypothyroidism: Plan: Continue levothyroxine (6) HTN (hypertension): Plan: Bp Variable Continue metoprolol, lisinopril with holding parameters Monitor BP Adjust medications as needed (7) DVT prophylaxis: Plan: Lovenox SQ Code Status Full Code Disposition SNF when accepted Admission and Anticipated Discharge Date Admission Date: May 12, 2021 Subjective 85-year-old woman with history of DM type II, hypothyroidism, hyperlipidemia, CKD 3, chronic systolic congestive heart failure, exertional dyspnea, first- degree AV block, left bundle-branch block, CAD, hypertension, aortic valve stenosis, GERD, lymphedema of both lower extremities, general osteoarthrosis, history of Benign positional vertigo, aspirin allergy, history of moderate aortic stenosis, history of ischemic cardiomyopathy, status post biventricular cardiac pacemaker who presents after mechanical fall at home. Being managed for Right calcaneal fracture and found to be positive for COVID 19 Patient seen and examined today. Reports only pain in right calcaneal region especially with dorsiflexion. Denies any chest pain, shortness of breath. Reports occasional cough Denies any headache, dizziness, nausea or vomiting Denies any dysuria or frequency Physical Exam Constitutional: Elderly woman in no obvious distress Eyes: PERRL, conjunctivae normal, anicteric sclerae ENMT: external ear and nose normal, oropharynx normal Respiratory: normal respiratory effort, lungs clear to auscultation Cardiovascular: RRR, S1-S2 Gastrointestinal (Abdomen): normal bowel sounds, soft, nontender, no hepatosplenomegaly Musculoskeletal: Chronic lymphedema Neurologic: PERRL, EOMI, accommodation nl, no face palsy, no dysarthria Psychiatric: A+Ox3, euthymic affect Results & Data Results & Data ([facility]) Vital Signs (Past 12 Hours) Vital Signs Temp Pulse Resp BP Pulse Ox 05/23/21 07:11 36.6 C 60 18 123/63 94 Laboratory Results Abnormal lab results 05/22/21 05/22/21 05/23/21 Range/Units 17:20 20:25 08:21 POC Glucose 109 H 137 H 118 H (70-99) mg/dl 05/23/21 Range/Units 12:12 POC Glucose 151 H (70-99) mg/dl
[2021-05-23] MEDS: SENNA 8.6 MG TAB PO SCH (20:18)
[2021-05-24] MEDS: LEVOTHYROXINE SODIUM 88 MCG TABLET PO SCH (05:52)
[2021-05-24] MEDS: ACETAMINOPHEN 500 MG TAB PO SCH ×3 (09:00→23:24)
[2021-05-24] MEDS: ASCORBIC ACID 500 MG TAB PO SCH ×2 (09:29→20:19)
[2021-05-24] MEDS: guaiFENesin 600 MG TABCR PO SCH ×2 (09:29→20:18)
[2021-05-24] MEDS: DOCUSATE SODIUM 100 MG CAP PO SCH (09:29)
[2021-05-24] MEDS: ENOXAPARIN INJ 40 MG/0.4 ML SYR SQ SCH ×2 (09:30→20:18)
[2021-05-24] MEDS: GLUCOSAMINE SULFATE 500 MG CAP PO SCH ×2 (09:30→20:18)
[2021-05-24] MEDS: CHOLECALCIFEROL 1,000 UNITS 25 MCG TAB PO SCH (09:31)
[2021-05-24] MEDS: ZINC SULFATE 220 MG CAPSULE PO SCH (09:31)
[2021-05-24] MEDS: SPIRONOLACTONE 12.5 MG TAB PO SCH (09:31)
[2021-05-24] MEDS: TORSEMIDE 20 MG TAB PO SCH (09:31)
[2021-05-24] MEDS: MULTIVITAMIN TAB PO SCH (09:31)
[2021-05-24] MEDS: lisinopril 2.5 MG TAB PO SCH (09:31)
[2021-05-24] MEDS: MAGNESIUM OXIDE 400 MG TAB PO SCH (09:32)
[2021-05-24] MEDS: METOPROLOL SUCC 25MG EXT REL TAB PO SCH (09:32)
[2021-05-24] MEDS: POLYETHYLENE (MIRALAX) 17 GM PACK PO SCH (09:33)
[2021-05-24] MEDS: INSULIN ASPART 100 UNITS/ML 3 ML PEN SC SCH ×4 (09:34→20:47)
[2021-05-24] MEDS: POTASSIUM CHLORIDE CRTAB 20 MEQ TABCR PO SCH ×2 (09:41→20:17)
[2021-05-24] MEDS: BENZONATATE 100 MG CAPSULE PO SCH ×3 (09:41→20:17)
--- NOTE | 2021-05-24 13:27 | Hospitalist Progress Note ---
Date of Service May 24, 2021 Assessment & Plan (1) Right calcaneal fracture: Plan: Minimally displaced calcaneal fracture Secondary to fall Conservative management Pain control Slow advancement with weightbearing as tolerated Encourage to get OOB Appreciate orthopedics input Continue PT OT Fall precautions Needs follow-up with Dr. Hernandez in 4 to 6 weeks with repeat x-rays Waiting for rehab placement Case management working on rehab placement (2) UTI due to extended-spectrum beta lactamase (ESBL) producing Escherichia coli: Plan: Urine culture growing ESBL E. coli Completed 5 day course of IV Ertapenem Appreciate ID Input (3) COVID-19: Plan: --CXR: Cardiomegaly and cardiac pacemaker. There is no radiographic evidence of congestive failure. No airspace consolidation or large pleural effusion is identified. Taken COVID-19 vaccine Saturating fairly well on room air Monitor (4) Hypoxia: Plan: Minimally present early in the admission Resolved (5) Hypothyroidism: Plan: Continue levothyroxine (6) HTN (hypertension): Plan: BP controlled in the past 24h Continue metoprolol, lisinopril with holding parameters Monitor BP Adjust medications as needed (7) DVT prophylaxis: Plan: Lovenox SQ Code Status Full Code Disposition SNF when accepted Plan: Constipation Bowel regimen. Monitor BM Increase activity Admission and Anticipated Discharge Date Admission Date: May 12, 2021 Subjective 85-year-old woman with history of DM type II, hypothyroidism, hyperlipidemia, CKD 3, chronic systolic congestive heart failure, exertional dyspnea, first- degree AV block, left bundle-branch block, CAD, hypertension, aortic valve st enosis, GERD, lymphedema of both lower extremities, general osteoarthrosis, history of Benign positional vertigo, aspirin allergy, history of moderate aortic stenosis, history of ischemic cardiomyopathy, status post biventricular cardiac pacemaker who presents after mechanical fall at home. Being managed for Right calcaneal fracture and found to be positive for COVID 19 Patient seen and examined today. Reports right calcaneal pain is controlled Denies any chest pain, shortness of breath. Reports mild cough Denies any headache, dizziness, nausea or vomiting. Reports constipation today Denies any dysuria or frequency Physical Exam Eyes: PERRL, conjunctivae normal, anicteric sclerae ENMT: external ear and nose normal, oropharynx normal Respiratory: normal respiratory effort, lungs clear to auscultation Gastrointestinal (Abdomen): normal bowel sounds, soft, nontender, no hepatosplenomegaly Musculoskeletal: chronic lymphedema Neurologic: PERRL, EOMI, accommodation nl, no face palsy, no dysarthria Psychiatric: A+Ox3, euthymic affect Results & Data Results & Data ([facility]) Vital Signs (Past 12 Hours) Vital Signs Temp Pulse Resp BP Pulse Ox 05/24/21 09:26 65 138/81 94 05/24/21 06:43 36.4 C L 63 18 136/77 92 Laboratory Results Abnormal lab results 05/23/21 05/23/21 05/24/21 Range/Units 17:32 19:58 08:41 POC Glucose 121 H 145 H 119 H (70-99) mg/dl 05/24/21 Range/Units 12:58 POC Glucose 132 H (70-99) mg/dl
[2021-05-24] MEDS: SENNA 8.6 MG TAB PO SCH (20:19)
[2021-05-25] MEDS: LEVOTHYROXINE SODIUM 88 MCG TABLET PO SCH (05:58)
[2021-05-25] MEDS: INSULIN ASPART 100 UNITS/ML 3 ML PEN SC SCH ×4 (10:06→21:03)
[2021-05-25] MEDS: POTASSIUM CHLORIDE CRTAB 20 MEQ TABCR PO SCH ×2 (10:14→22:15)
[2021-05-25] MEDS: BENZONATATE 100 MG CAPSULE PO SCH ×3 (10:15→21:01)
[2021-05-25] MEDS: lisinopril 2.5 MG TAB PO SCH (10:15)
[2021-05-25] MEDS ORDERED: Nursing to Pharmacy Communication SCH (10:15)
[2021-05-25] MEDS: CHOLECALCIFEROL 1,000 UNITS 25 MCG TAB PO SCH (10:15)
[2021-05-25] MEDS: MAGNESIUM OXIDE 400 MG TAB PO SCH (10:15)
[2021-05-25] MEDS: ASCORBIC ACID 500 MG TAB PO SCH ×2 (10:16→21:01)
[2021-05-25] MEDS: guaiFENesin 600 MG TABCR PO SCH ×2 (10:16→21:00)
[2021-05-25] MEDS: GLUCOSAMINE SULFATE 500 MG CAP PO SCH ×2 (10:16→21:01)
[2021-05-25] MEDS: ENOXAPARIN INJ 40 MG/0.4 ML SYR SQ SCH ×2 (10:17→21:02)
[2021-05-25] MEDS: DOCUSATE SODIUM 100 MG CAP PO SCH (10:17)
[2021-05-25] MEDS: TORSEMIDE 20 MG TAB PO SCH (10:18)
[2021-05-25] MEDS: METOPROLOL SUCC 25MG EXT REL TAB PO SCH (10:18)
[2021-05-25] MEDS: ZINC SULFATE 220 MG CAPSULE PO SCH (10:18)
[2021-05-25] MEDS: MULTIVITAMIN TAB PO SCH (10:19)
[2021-05-25] MEDS: SPIRONOLACTONE 12.5 MG TAB PO SCH (10:20)
[2021-05-25] MEDS: POLYETHYLENE (MIRALAX) 17 GM PACK PO SCH (10:20)
[2021-05-25] MEDS: ACETAMINOPHEN 500 MG TAB PO SCH ×3 (10:25→23:13)
--- NOTE | 2021-05-25 13:50 | Hospitalist Progress Note ---
Date of Service May 25, 2021 Assessment & Plan (1) Right calcaneal fracture: Plan: Minimally displaced calcaneal fracture Secondary to fall Conservative management Pain controlled Slow advancement with weightbearing as tolerated Encourage to get OOB Appreciate orthopedics input Continue PT OT while inpt Fall precautions Needs follow-up with Dr. Hernandez in 4 to 6 weeks with repeat x-rays Waiting for rehab placement Case management working on rehab placement (2) UTI due to extended-spectrum beta lactamase (ESBL) producing Escherichia coli: Plan: Urine culture growing ESBL E. coli Completed 5 day course of IV Ertapenem Appreciate ID Input (3) COVID-19: Plan: --CXR: Cardiomegaly and cardiac pacemaker. There is no radiographic evidence of congestive failure. No airspace consolidation or large pleural effusion is identified. Taken COVID-19 vaccine Saturating fairly well on room air Monitor (4) Hypoxia: Plan: Minimally present early in the admission Resolved (5) Hypothyroidism: Plan: Continue levothyroxine (6) HTN (hypertension): Plan: Coontrolled Continue metoprolol, lisinopril with holding parameters Monitor BP Adjust medications as needed (7) DVT prophylaxis: Plan: Lovenox SQ Code Status Full Code Disposition SNF when accepted Admission and Anticipated Discharge Date Admission Date: May 12, 2021 Subjective 85-year-old woman with history of DM type II, hypothyroidism, hyperlipidemia, CKD 3, chronic systolic congestive heart failure, exertional dyspnea, first- degree AV block, left bundle-branch block, CAD, hypertension, aortic valve stenosis, GERD, lymphedema of both lower extremities, general osteoarthrosis, history of Benign positional vertigo, aspirin allergy, history of moderate aortic stenosis, history of ischemic cardiomyopathy, status post biventricular cardiac pacemaker who presents after mechanical fall at home. Being managed for Right calcaneal fracture and found to be positive for COVID 19 Patient seen and examined today. Reports right calcaneal pain is controlled Denies any chest pain, shortness of breath. Reports mild cough Denies any headache, dizziness, nausea or vomiting. Constipation resolved. Had BM yesterday Denies any dysuria or frequency Physical Exam Eyes: PERRL, conjunctivae normal, anicteric sclerae ENMT: external ear and nose normal, oropharynx normal Respiratory: normal respiratory effort, lungs clear to auscultation Cardiovascular: RRR. S1 S2 Gastrointestinal (Abdomen): normal bowel sounds, soft, nontender, no hepatosplenomegaly Musculoskeletal: Chronic lymphedema Neurologic: PERRL, EOMI, accommodation nl, no face palsy, no dysarthria Psychiatric: A+Ox3, euthymic affect Results & Data Results & Data ([facility]) Vital Signs (Past 12 Hours) Vital Signs Temp Pulse Resp BP Pulse Ox 05/25/21 10:10 75 133/65 05/25/21 07:24 36.5 C 62 16 140/68 93 Laboratory Results Abnormal lab results 05/24/21 05/24/21 05/25/21 Range/Units 17:23 20:38 08:06 POC Glucose 126 H 124 H 103 H (70-99) mg/dl 05/25/21 Range/Units 12:00 POC Glucose 179 H (70-99) mg/dl
[2021-05-25] MEDS: SENNA 8.6 MG TAB PO SCH (21:01)
[2021-05-26] MEDS: LEVOTHYROXINE SODIUM 88 MCG TABLET PO SCH (05:46)
[2021-05-26] MEDS: INSULIN ASPART 100 UNITS/ML 3 ML PEN SC SCH ×4 (09:01→21:59)
[2021-05-26] MEDS: TORSEMIDE 20 MG TAB PO SCH (09:03)
[2021-05-26] MEDS: GLUCOSAMINE SULFATE 500 MG CAP PO SCH ×2 (09:03→21:24)
[2021-05-26] MEDS: DOCUSATE SODIUM 100 MG CAP PO SCH (09:03)
[2021-05-26] MEDS: ENOXAPARIN INJ 40 MG/0.4 ML SYR SQ SCH ×2 (09:03→21:24)
[2021-05-26] MEDS: guaiFENesin 600 MG TABCR PO SCH ×2 (09:03→21:23)
[2021-05-26] MEDS: POTASSIUM CHLORIDE CRTAB 20 MEQ TABCR PO SCH ×2 (09:04→21:23)
[2021-05-26] MEDS: CHOLECALCIFEROL 1,000 UNITS 25 MCG TAB PO SCH (09:04)
[2021-05-26] MEDS: ACETAMINOPHEN 500 MG TAB PO SCH ×3 (09:04→23:29)
[2021-05-26] MEDS: ASCORBIC ACID 500 MG TAB PO SCH ×2 (09:04→21:24)
[2021-05-26] MEDS: MAGNESIUM OXIDE 400 MG TAB PO SCH (09:04)
[2021-05-26] MEDS: BENZONATATE 100 MG CAPSULE PO SCH ×3 (09:05→21:35)
[2021-05-26] MEDS: POLYETHYLENE (MIRALAX) 17 GM PACK PO SCH (09:05)
[2021-05-26] MEDS: ZINC SULFATE 220 MG CAPSULE PO SCH (09:05)
[2021-05-26] MEDS: SPIRONOLACTONE 12.5 MG TAB PO SCH (09:05)
[2021-05-26] MEDS: METOPROLOL SUCC 25MG EXT REL TAB PO SCH (09:05)
[2021-05-26] MEDS: lisinopril 2.5 MG TAB PO SCH (09:05)
[2021-05-26] MEDS: MULTIVITAMIN TAB PO SCH (09:05)
--- NOTE | 2021-05-26 11:37 | Hospitalist Progress Note ---
Date of Service May 26, 2021 Assessment & Plan (1) Right calcaneal fracture: Plan: Minimally displaced calcaneal fracture Secondary to fall Conservative management Pain controlled Slow advancement with weightbearing as tolerated Encourage to get OOB Appreciate orthopedics input Continue PT OT while inpt Fall precautions Needs follow-up with Dr. Hernandez in 4 to 6 weeks with repeat x-rays Waiting for rehab placement Case management working on rehab placement (2) UTI due to extended-spectrum beta lactamase (ESBL) producing Escherichia coli: Plan: Urine culture growing ESBL E. coli Completed 5 day course of IV Ertapenem (3) COVID-19: Plan: --CXR: Cardiomegaly and cardiac pacemaker. There is no radiographic evidence of congestive failure. No airspace consolidation or large pleural effusion is identified. Taken COVID-19 vaccine Saturating fairly well on room air Monitor (4) Hypoxia: Plan: Minimally present early in the admission Resolved (5) Hypothyroidism: Plan: Continue levothyroxine (6) HTN (hypertension): Plan: Coontrolled Continue metoprolol, lisinopril with holding parameters Monitor BP Adjust medications as needed (7) DVT prophylaxis: Plan: Lovenox SQ Code Status Full Code Disposition SNF when accepted Admission and Anticipated Discharge Date Admission Date: May 12, 2021 Subjective 85-year-old woman with history of DM type II, hypothyroidism, hyperlipidemia, CKD 3, chronic systolic congestive heart failure, exertional dyspnea, first- degree AV block, left bundle-branch block, CAD, hypertension, aortic valve stenosis, GERD, lymphedema of both lower extremities, general osteoarthrosis, history of Benign positional vertigo, aspirin allergy, history of moderate aortic stenosis, history of ischemic cardiomyopathy, status post biventricular cardiac pacemaker who presents after mechanical fall at home. Being managed for Right calcaneal fracture and found to be positive for COVID 19 Patient seen and examined today. Denies any chest pain, shortness of breath. Reports mild cough but improving Denies any headache, dizziness, nausea, vomiting, abd pain, constipation or esperanza rrhea Denies any dysuria or frequency Right calcaneal pain is controlled Physical Exam Eyes: PERRL, conjunctivae normal, anicteric sclerae ENMT: external ear and nose normal, oropharynx normal Respiratory: normal respiratory effort, lungs clear to auscultation Cardiovascular: RRR S1 S2 Gastrointestinal (Abdomen): normal bowel sounds, soft, nontender, no hepatosplenomegaly Musculoskeletal: Chronic lymphedema Neurologic: PERRL, EOMI, accommodation nl, no face palsy, no dysarthria Psychiatric: A+Ox3, euthymic affect Results & Data Results & Data ([facility]) Vital Signs (Past 12 Hours) Vital Signs Temp Pulse Resp BP Pulse Ox 05/26/21 07:56 36.6 C 60 16 139/82 93 Laboratory Results Abnormal lab results 05/25/21 05/26/21 05/26/21 Range/Units 20:38 07:44 11:34 POC Glucose 132 H 123 H 134 H (70-99) mg/dl
[2021-05-26] MEDS: SENNA 8.6 MG TAB PO SCH (21:23)
[2021-05-27] MEDS: LEVOTHYROXINE SODIUM 88 MCG TABLET PO SCH (06:15)
[2021-05-27] MEDS: INSULIN ASPART 100 UNITS/ML 3 ML PEN SC SCH ×4 (08:14→21:29)
[2021-05-27] MEDS: ACETAMINOPHEN 500 MG TAB PO SCH ×2 (09:12→15:43)
[2021-05-27] MEDS: ZINC SULFATE 220 MG CAPSULE PO SCH (09:13)
[2021-05-27] MEDS: lisinopril 2.5 MG TAB PO SCH (09:13)
[2021-05-27] MEDS: TORSEMIDE 20 MG TAB PO SCH (09:13)
[2021-05-27] MEDS: POTASSIUM CHLORIDE CRTAB 20 MEQ TABCR PO SCH ×2 (09:13→20:32)
[2021-05-27] MEDS: CHOLECALCIFEROL 1,000 UNITS 25 MCG TAB PO SCH (09:13)
[2021-05-27] MEDS: ASCORBIC ACID 500 MG TAB PO SCH ×2 (09:13→20:30)
[2021-05-27] MEDS: GLUCOSAMINE SULFATE 500 MG CAP PO SCH ×2 (09:13→20:32)
[2021-05-27] MEDS: guaiFENesin 600 MG TABCR PO SCH ×2 (09:13→20:32)
[2021-05-27] MEDS: POLYETHYLENE (MIRALAX) 17 GM PACK PO SCH (09:14)
[2021-05-27] MEDS: METOPROLOL SUCC 25MG EXT REL TAB PO SCH (09:14)
[2021-05-27] MEDS: ENOXAPARIN INJ 40 MG/0.4 ML SYR SQ SCH ×2 (09:14→20:31)
[2021-05-27] MEDS: MAGNESIUM OXIDE 400 MG TAB PO SCH (09:14)
[2021-05-27] MEDS: SPIRONOLACTONE 12.5 MG TAB PO SCH (09:14)
[2021-05-27] MEDS: BENZONATATE 100 MG CAPSULE PO SCH ×3 (09:14→20:31)
[2021-05-27] MEDS: DOCUSATE SODIUM 100 MG CAP PO SCH (09:14)
[2021-05-27] MEDS: MULTIVITAMIN TAB PO SCH (09:14)
--- NOTE | 2021-05-27 11:47 | Hospitalist Progress Note ---
Date of Service May 27, 2021 Assessment & Plan (1) Right calcaneal fracture: Plan: Minimally displaced calcaneal fracture Secondary to fall Conservative management Pain controlled Slow advancement with weightbearing as tolerated Encourage to get OOB. Appreciate orthopedics input Continue PT OT while inpt Fall precautions Needs follow-up with Dr. Hernandez in 4 to 6 weeks with repeat x-rays Waiting for rehab placement Case management working on rehab placement (2) UTI due to extended-spectrum beta lactamase (ESBL) producing Escherichia coli: Plan: Urine culture growing ESBL E. coli Completed 5 day course of IV Ertapenem (3) COVID-19: Plan: --CXR: Cardiomegaly and cardiac pacemaker. There is no radiographic evidence of congestive failure. No airspace consolidation or large pleural effusion is identified. Taken COVID-19 vaccine Received dexa and remdesivir on admission and later discontinued (4) Hypoxia: Plan: Minimally present early in the admission Resolved (5) Hypothyroidism: Plan: Continue levothyroxine (6) HTN (hypertension): Plan: Coontrolled Continue metoprolol, lisinopril with holding parameters Monitor BP Adjust medications as needed (7) DVT prophylaxis: Plan: Lovenox SQ Code Status Full Code Disposition SNF when accepted Admission and Anticipated Discharge Date Admission Date: May 12, 2021 Subjective 85-year-old woman with history of DM type II, hypothyroidism, hyperlipidemia, CKD 3, chronic systolic congestive heart failure, exertional dyspnea, first- degree AV block, left bundle-branch block, CAD, hypertension, aortic valve stenosis, GERD, lymphedema of both lower extremities, general osteoarthrosis, history of Benign positional vertigo, aspirin allergy, history of moderate aortic stenosis, history of ischemic cardiomyopathy, status post biventricular cardiac pacemaker who presents after mechanical fall at home. Being managed for Right calcaneal fracture and found to be positive for COVID 19 Patient seen and examined today. Reports mild cough. Denies any chest pain, shortness of breath. Denies any headache, dizziness, nausea, vomiting, abd pain, constipation or diarrhea Denies any dysuria or frequency Review of Systems Review of Systems: All systems reviewed & are unremarkable except as noted in Subjective Physical Exam Eyes: PERRL, conjunctivae normal, anicteric sclerae ENMT: external ear and nose normal, oropharynx normal Respiratory: normal respiratory effort, lungs clear to auscultation Cardiovascular: Rate/Rhythm: regular rate and regular rhythm Heart Sounds: normal S1 and normal S2 Gastrointestinal (Abdomen): normal bowel sounds, soft, nontender, no hepatosplenomegaly Musculoskeletal: Chronic lymphedema Neurologic: PERRL, EOMI, accommodation nl, no face palsy, no dysarthria Psychiatric: A+Ox3, euthymic affect Results & Data Results & Data ([facility]) Vital Signs (Past 12 Hours) Vital Signs Temp Pulse Resp BP Pulse Ox 05/27/21 08:23 36.7 C 61 18 110/68 93 05/27/21 07:46 93 05/27/21 07:40 86 L Laboratory Results Abnormal lab results 05/26/21 05/26/21 05/27/21 Range/Units 16:34 21:17 08:04 POC Glucose 117 H 116 H 128 H (70-99) mg/dl 05/27/21 Range/Units 11:59 POC Glucose 177 H (70-99) mg/dl
[2021-05-27] MEDS: SENNA 8.6 MG TAB PO SCH (20:33)
[2021-05-28] MEDS: ACETAMINOPHEN 500 MG TAB PO SCH ×2 (00:15→07:35)
[2021-05-28] MEDS: LEVOTHYROXINE SODIUM 88 MCG TABLET PO SCH (05:57)
[2021-05-28] MEDS: POTASSIUM CHLORIDE CRTAB 20 MEQ TABCR PO SCH ×2 (07:35→20:48)
[2021-05-28] MEDS: METOPROLOL SUCC 25MG EXT REL TAB PO SCH (07:35)
[2021-05-28] MEDS: ASCORBIC ACID 500 MG TAB PO SCH ×2 (07:35→20:47)
[2021-05-28] MEDS: ZINC SULFATE 220 MG CAPSULE PO SCH (07:35)
[2021-05-28] MEDS: lisinopril 2.5 MG TAB PO SCH (07:35)
[2021-05-28] MEDS: guaiFENesin 600 MG TABCR PO SCH ×2 (07:35→20:47)
[2021-05-28] MEDS: CHOLECALCIFEROL 1,000 UNITS 25 MCG TAB PO SCH (07:35)
[2021-05-28] MEDS: ENOXAPARIN INJ 40 MG/0.4 ML SYR SQ SCH ×2 (07:35→20:48)
[2021-05-28] MEDS: SPIRONOLACTONE 12.5 MG TAB PO SCH (07:35)
[2021-05-28] MEDS: GLUCOSAMINE SULFATE 500 MG CAP PO SCH ×2 (07:35→20:47)
[2021-05-28] MEDS: TORSEMIDE 20 MG TAB PO SCH (07:35)
[2021-05-28] MEDS: MULTIVITAMIN TAB PO SCH (07:35)
[2021-05-28] MEDS: MAGNESIUM OXIDE 400 MG TAB PO SCH (07:35)
[2021-05-28] MEDS ORDERED: ACETAMINOPHEN 500 MG TAB PO PRN (08:17)
[2021-05-28] MEDS: DOCUSATE SODIUM 100 MG CAP PO SCH (08:36)
[2021-05-28] MEDS: POLYETHYLENE (MIRALAX) 17 GM PACK PO SCH (08:37)
[2021-05-28] MEDS: INSULIN ASPART 100 UNITS/ML 3 ML PEN SC SCH ×4 (09:14→21:17)
[2021-05-28] MEDS: BENZONATATE 100 MG CAPSULE PO SCH ×3 (11:47→20:47)
--- NOTE | 2021-05-28 12:05 | Hospitalist Progress Note ---
Date of Service May 28, 2021 Assessment & Plan (1) Right calcaneal fracture: Plan: Minimally displaced calcaneal fracture Secondary to fall Conservative management Pain controlled Slow advancement with weightbearing as tolerated Encourage to get OOB. Appreciate orthopedics input Continue PT OT while inpt Fall precautions Needs follow-up with Dr. Hernandez in 4 to 6 weeks with repeat x-rays Waiting for rehab placement Case management working on rehab placement (2) UTI due to extended-spectrum beta lactamase (ESBL) producing Escherichia coli: Plan: Urine culture growing ESBL E. coli Completed 5 day course of IV Ertapenem (3) COVID-19: Plan: --CXR: Cardiomegaly and cardiac pacemaker. There is no radiographic evidence of congestive failure. No airspace consolidation or large pleural effusion is identified. Taken COVID-19 vaccine Received dexa and remdesivir on admission and later discontinued Discontinue isolation precautions (4) Hypoxia: Plan: Minimally present early in the admission Resolved (5) Hypothyroidism: Plan: Continue levothyroxine (6) HTN (hypertension): Plan: Coontrolled Continue metoprolol, lisinopril with holding parameters Monitor BP Adjust medications as needed (7) DVT prophylaxis: Plan: Lovenox SQ Code Status Full Code Disposition SNF when accepted Admission and Anticipated Discharge Date Admission Date: May 12, 2021 Subjective 85-year-old woman with history of DM type II, hypothyroidism, hyperlipidemia, CKD 3, chronic systolic congestive heart failure, exertional dyspnea, first- degree AV block, left bundle-branch block, CAD, hypertension, aortic valve stenosis, GERD, lymphedema of both lower extremities, general osteoarthrosis, history of Benign positional vertigo, aspirin allergy, history of moderate aortic stenosis, history of ischemic cardiomyopathy, status post biventricular cardiac pacemaker who presents after mechanical fall at home. Being managed for Right calcaneal fracture and found to be positive for COVID 19 Patient seen and examined today. Reports mild cough improving. any chest pain, shortness of breath. Denies any headache, dizziness, nausea, vomiting, abd pain, constipation or diarrhea Denies any dysuria or frequency Physical Exam Eyes: PERRL, conjunctivae normal, anicteric sclerae ENMT: external ear and nose normal, oropharynx normal Respiratory: normal respiratory effort, lungs clear to auscultation Cardiovascular: Rate/Rhythm: regular rate and regular rhythm Heart Sounds: normal S1 and normal S2 Gastrointestinal (Abdomen): normal bowel sounds, soft, nontender, no hepatosplenomegaly Musculoskeletal: Chronic lymphedema Neurologic: PERRL, EOMI, accommodation nl, no face palsy, no dysarthria Psychiatric: A+Ox3, euthymic affect Results & Data Results & Data ([facility]) Vital Signs (Past 12 Hours) Vital Signs Temp Pulse Resp BP Pulse Ox 05/28/21 07:29 36.7 C 61 16 127/69 91 Laboratory Results Abnormal lab results 05/27/21 05/27/21 05/28/21 Range/Units 17:07 20:47 08:09 POC Glucose 141 H 114 H 118 H (70-99) mg/dl 05/28/21 Range/Units 12:16 POC Glucose 168 H (70-99) mg/dl
[2021-05-28] MEDS: SENNA 8.6 MG TAB PO SCH (20:47)
[2021-05-29] MEDS: LEVOTHYROXINE SODIUM 88 MCG TABLET PO SCH (05:46)
[2021-05-29] MEDS: GLUCOSAMINE SULFATE 500 MG CAP PO SCH (07:17)
[2021-05-29] MEDS: POTASSIUM CHLORIDE CRTAB 20 MEQ TABCR PO SCH (07:17)
[2021-05-29] MEDS: ASCORBIC ACID 500 MG TAB PO SCH (07:17)
[2021-05-29] MEDS: TORSEMIDE 20 MG TAB PO SCH (07:17)
[2021-05-29] MEDS: CHOLECALCIFEROL 1,000 UNITS 25 MCG TAB PO SCH (07:18)
[2021-05-29] MEDS: MAGNESIUM OXIDE 400 MG TAB PO SCH (07:18)
[2021-05-29] MEDS: METOPROLOL SUCC 25MG EXT REL TAB PO SCH (07:18)
[2021-05-29] MEDS: MULTIVITAMIN TAB PO SCH (07:18)
[2021-05-29] MEDS: lisinopril 2.5 MG TAB PO SCH (07:19)
[2021-05-29] MEDS: SPIRONOLACTONE 12.5 MG TAB PO SCH (07:19)
[2021-05-29] MEDS: POLYETHYLENE (MIRALAX) 17 GM PACK PO SCH (07:19)
[2021-05-29] MEDS: guaiFENesin 600 MG TABCR PO SCH (07:20)
[2021-05-29] MEDS: ZINC SULFATE 220 MG CAPSULE PO SCH (07:20)
[2021-05-29] MEDS: DOCUSATE SODIUM 100 MG CAP PO SCH (07:20)
[2021-05-29] MEDS: BENZONATATE 100 MG CAPSULE PO SCH (07:23)
[2021-05-29] MEDS: INSULIN ASPART 100 UNITS/ML 3 ML PEN SC SCH (08:21)
[2021-05-29] MEDS: ENOXAPARIN INJ 40 MG/0.4 ML SYR SQ SCH (08:33)
--- NOTE | 2021-05-29 11:15 | Discharge Summary ---
Date of Service May 29, 2021 Admission Exam Per Admitting Provider GENERAL: The patient is obese, not in acute distress. VITAL SIGNS: Temperature 37.6, pulse 91, respiratory rate 18, blood pressure 147/96, oxygen 90% on room air. HEENT: Pupils equal, round and reactive to light. Oral mucosa moist. NECK: No JVD. No neck masses seen. CARDIOVASCULAR: S1 and S2 heard. Regular rate and rhythm. No murmur, no gallop. RESPIRATORY SYSTEM: Normal AP diameter. No accessory muscle use. No wheezing, no crackles. ABDOMEN: Soft, bowel sounds present, nontender, no distention. CENTRAL NERVOUS SYSTEM: Cranial nerves II-XII grossly intact, nonfocal. EXTREMITIES: Bilateral lower extremity lymphedema present, no erythema seen. Bruise seen on the right foot region and tender on palpation. Principal Diagnosis Fall Right calcaneal fracture COVID 19 infection Urinary tract infection Discharge Exam Eyes PERRL, conjunctivae normal, anicteric sclerae ENMT external ear and nose normal, oropharynx normal Respiratory normal respiratory effort, lungs clear to auscultation Cardiovascular Rate/Rhythm: regular rate and regular rhythm Heart Sounds: normal S1 and normal S2 Gastrointestinal (Abdomen) normal bowel sounds, soft, nontender, no hepatosplenomegaly Musculoskeletal Chronic lymphedema Neurologic PERRL, EOMI, accommodation nl, no face palsy, no dysarthria Psychiatric A+Ox3, euthymic affect Discharge Data Allergies Allergy/AdvReac Type Severity Reaction Status Date / Time aspirin Allergy Intermediate Hives, Verified 05/12/21 02:24 shortness of breath ibuprofen Allergy Intermediate Rash, hives Verified 05/12/21 02:24 Penicillins Allergy Intermediate Rash, hives Verified 05/12/21 02:24 adhesive Allergy Mild Reddened Verified 05/12/21 02:24 and sore skin ciprofloxacin AdvReac Intermediate Weakness Verified 05/12/21 02:24 prednisone AdvReac Mild Confusion Verified 05/12/21 02:24 Consultations 05/12/21 06:29 ED Decision to Admit Stat 05/12/21 16:45 Consult Orthopedic Surgery Routine 05/14/21 15:50 Consult Infectious Diseases Routine Ordered Studies 05/12/21 02:33 CT cervical spine wo con Urgent : Alignment of the cervical spine is anatomic. Vertebral body heights are maintained. No acute cervical spine fracture or subluxation is present. There is no prevertebral edema. Facet joints are intact. Exam is mildly compromised by artifact. There is moderate multilevel degenerative disc disease and facet arthrosis. Extensive degenerative changes at the C1-C2 articulation are noted. IMPRESSION: No acute cervical spine fracture or subluxation. Exam mildly compromised by artifact. CT head/brain wo con Urgent No acute intracranial hemorrhage, midline shift or mass effect is present. White matter hypodensity suggests small vessel disease. The ventricular system is unremarkable. The basal cisterns are patent. No extra-axial collections are present. There are no findings to suggest acute dural sinus thrombosis or acute territorial infarct. No significant calvarial abnormalities are present. Visualized portions of the sinuses and mastoid air cells are clear. IMPRESSION: 1. No acute intracranial findings. 2. No calvarial fracture. 05/12/21 06:29 CT foot RT wo con Stat Note is made of an acute minimally displaced fracture of the posterior medial aspect of the right calcaneus. No definite extension to the subtalar joint is noted. No additional acute fractures are identified within the right foot although its activity is significantly diminished given motion artifact. Tarsometatarsal joints are grossly intact. 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 No acute fracture of the distal right tibia or fibula is noted. There is mild right ankle and hindfoot soft tissue swelling. No suspicious osseous lesions are noted. IMPRESSION: 1. Acute minimally displaced fracture the posterior medial aspect of the right calcaneus. 2. No additional acute fractures within the right foot although sensitivity diminished given motion artifact. 2. Moderate mid foot osteoarthritis. Hospital Course (1) Right calcaneal fracture: Minimally displaced calcaneal fracture Secondary to fall Conservative management Pain controlled Slow advancement with weightbearing as tolerated Fall precautions Needs follow-up with Dr. Hernandez in 2 to 4 weeks with repeat x-rays Discharged to rehab (2) UTI due to extended-spectrum beta lactamase (ESBL) producing Escherichia coli: Urine culture growing ESBL E. coli Completed 5 day course of IV Ertapenem (3) COVID-19: --CXR: Cardiomegaly and cardiac pacemaker. There is no radiographic evidence of congestive failure. No airspace consolidation or large pleural effusion is identified. Taken COVID-19 vaccine Received dexa and remdesivir on admission and later discontinued Isolation precautions discontinued (4) Hypoxia: Minimally present early in the admission Resolved (5) Hypothyroidism: Continue levothyroxine (6) HTN (hypertension): Coontrolled Continue metoprolol, lisinopril Total Time Total Time Spent Total Time Spent (In Minutes): 40 Total Time Includes: Examination of the Patient, Discharge Planning and Medication Reconciliation Discharge Plan Discharge Items Patient Disposition: Transfer [facility] Reason For Visit: FALL Discharge Diagnosis: Fall Right calcaneal fracture COVID 19 infection Urinary tract infection Activity: As commented below Activity Comment: Advancement with weightbearing as tolerated Non-emergency contact: Primary Care Provider Call non-emergency contact if: you have any medication questions Follow-up/Referrals: Smith Hernandez MD [Surgeon] - Verónica Benavides MD [Primary Care Provider] - Diet: Heart Healthy Addtl Attending Provider Instructions: Mrs Castano. You came into the hospital after a fall with right leg pain. You were evaluated and found to have right calcaneal fracture but did not require surgical procedure. You also tested positive for COVID 19 infection and was treated briefly. You are currently off isolation. You also had urinary tract infection and have completed antibiotics. Please follow up with Orthopedics (Dr Smith Hernandez) in 2-4 weeks for repeat Xrays, sooner if there is worsening pain or any issues. Please follow up with your Primary Doctor. It was a pleasure taking care of you. Pending Studies at Discharge: No Stand-Alone Forms: My [facility] Skilled Items Patient informed of condition?: Yes DNR: No Discharge Level of Care: Skilled Communicable Disease: No Discharge Prognosis: Stable Lines: None Urinary Catheter: No Medications and DC Order Prescriptions: New sennosides [Senokot] 8.6 mg Tablet 8.6 mg PO HS Qty: 30 RF: 0 acetaminophen [Tylenol Extra Strength] 500 mg Tablet 1,000 mg PO Q8H PRN (Reason: pain) Qty: 30 RF: 0 ascorbic acid (vitamin C) [Vitamin C] 500 mg Tablet 500 mg PO BID Qty: 60 RF: 0 cholecalciferol (vitamin D3) 25 mcg (1,000 unit) Capsule 1,000 unit PO QAM Qty: 30 RF: 0 Continued multivitamin Tablet 1 tab PO QAM Qty: 30 RF: 0 torsemide 20 mg Tablet 20 mg PO QAM Qty: 30 RF: 0 spironolactone [Aldactone] 25 mg Tablet 12.5 mg PO QAM Qty: 30 RF: 0 levothyroxine 88 mcg tablet 88 mcg PO QAM Qty: 30 RF: 0 potassium chloride 20 mEq Tablet,Er Particles/Crystals 20 meq PO BID Qty: 60 RF: 0 magnesium oxide 400 mg (241.3 mg magnesium) Tablet 400 mg PO QAM Qty: 30 RF: 0 docusate sodium [Colace] 100 mg Capsule 300 mg PO DAILY PRN (Reason: Constipation) Qty: 30 RF: 0 metoprolol succinate [Toprol XL] 25 mg Tablet Extended Release 24 Hr 12.5 mg PO QAM Qty: 30 RF: 0 lisinopril 2.5 mg tablet 2.5 mg PO QAM 30 Days Qty: 30 RF: 0 Glucosamine Chondroitin 550-30-1 mg Capsule 1 cap PO BID Qty: 60 RF: 0 Discharge Orders: Discharge Order (Routine); Ordered 05/29/21 Ordered By: Arina Birch/Other Patient Handouts: A1C, Managing Type 2 Diabetes Admission Data Admit Date/Time: 05/12/21 07:03 Attending Provider: Arina Gregorio I. Admit Provider: Cyrus Valdez Primary Care Provider: Verónica Benavides Other Providers: [facility] ; [facility] ; Cyrus Valdez ; Smith Hernandez ; Jose Alfredo Sesay ; Flavio Low ; Lobo Aranda I. ; Danilo Palacio II ; Marietta Amaya ; Chris Saha ; [facility] [place] ; Francis Werner ; Joanna Arias [place] Other Interventions: Discharge Summary Assessment (RN) Last Done: 05/29/21 10:10
== END 2021-05-29 12:41 | DRG 562 ==
LOC: ED 01:37 → SUATTDRO 07:03 → 2W 07:03 → 3E 05-15 16:31 → 3W 05-22 17:01 → 3E 05-28 14:43

== ENCOUNTER 2022-10-22 10:56 | Inpatient (IN) ==
--- NOTE | 2022-10-22 11:35 | Emergency Department Note ---
History of Present Illness General Chief complaint: Weakness Stated complaint: WEAKNESS, UNABLE TO AMBULATE Time Seen by Provider: 10/22/22 11:07 Source: patient and family (Adult children at bedside) History of Present Illness Provider complaint: Weakness near syncope UTI Maximum Pain Intensity: 0 87-year-old female presents emergency department from [facility] for weakness near syncope and UTI. Patient reports she woke up this morning felt very weak like she was going to pass out. She states her legs gave out from underneath her and she was falling. Patient denies any loss of conscious. Daughter at bedside states she did not hit the ground to someone from the correction caught her. Family reports that the patient is currently being treated for UTI. Patient is reporting no chest pain or difficulty breathing. She is reporting no headache. No abdominal pain. No hematuria or dysuria. No melena hematochezia. Family reports that the patient has not eaten all day. Home Medications Medication Instructions Recorded Confirmed Type acetaminophen 500 mg tablet 1,000 mg PO Q8H PRN pain #30 tabs 05/29/21 10/22/22 Rx (Tylenol Extra Strength) cholecalciferol (vitamin D3) 25 1,000 unit PO QAM #30 caps 05/29/21 10/22/22 Rx mcg (1,000 unit) capsule docusate sodium 100 mg capsule 300 mg PO DAILY PRN Constipation 05/29/21 10/22/22 Rx (Colace) #30 caps glucosamine sulf dipot 1 cap PO BID #60 caps 05/29/21 10/22/22 Rx chlr,msm,chond 550 mg-C 30 mg-vandana 1 mg capsule (Glucosamine Chondroitin) levothyroxine 88 mcg tablet 88 mcg PO QAM #30 tabs 05/29/21 10/22/22 Rx magnesium oxide 400 mg (241.3 mg 400 mg PO QAM #30 tabs 05/29/21 10/22/22 Rx magnesium) tablet metoprolol succinate 25 mg 12.5 mg PO QAM #30 tabs 05/29/21 10/22/22 Rx tablet,extended release 24 hr (Toprol XL) multivitamin 1 tab PO QAM #30 tabs 05/29/21 10/22/22 Rx potassium chloride 20 mEq 20 meq PO BID #60 tabs 05/29/21 10/22/22 Rx tablet,extended release(part/cryst) sennosides 8.6 mg tablet (Senokot) 8.6 mg PO HS #30 tabs 05/29/21 10/22/22 Rx d-mannose 500 mg capsule 1,000 mg PO BID 10/22/22 10/22/22 History mirabegron 25 mg tablet,extended 25 mg PO DAILY 10/22/22 10/22/22 History release 24 hr (Myrbetriq) omeprazole 20 mg capsule,delayed 20 mg PO DAILY 10/22/22 10/22/22 History release spironolactone 25 mg tablet 12.5 mg PO BID 10/22/22 10/22/22 History (Aldactone) torsemide 20 mg tablet 60 mg PO QAM 10/22/22 10/22/22 History Allergies Allergy/AdvReac Type Severity Reaction Status Date / Time aspirin Allergy Intermediate Hives, Verified 05/12/21 02:24 shortness of breath ibuprofen Allergy Intermediate Rash, hives Verified 05/12/21 02:24 Penicillins Allergy Intermediate Rash, hives Verified 05/12/21 02:24 adhesive Allergy Mild Reddened Verified 05/12/21 02:24 and sore skin ciprofloxacin AdvReac Intermediate Weakness Verified 05/12/21 02:24 prednisone AdvReac Mild Confusion Verified 05/12/21 02:24 Past Med/Surg History Medical History (Updated 10/22/22 @ 19:54 by Sekou Serrano) Arthritis CHF (congestive heart failure) Diabetes mellitus, type II History of recurrent UTIs Hypothyroidism LBBB (left bundle branch block) Lymphedema NICM (nonischemic cardiomyopathy) Pacemaker Pneumonia Systolic heart failure Vertigo Surgical History History of hysterectomy History of knee replacement, total Hx of cholecystectomy Family History Other Diabetes Heart disease Hypertension Social History Smoking Status: Never smoker Second Hand Exposure: No; Do You Dip or Chew Tobacco: No; Tobacco Cessation Education Requested by Patient: No Hx Alcohol Use: No Hx Substance Use: No Preferred Language: Hebrew Communication Ability: Effective Laundry Clerk Required: No Beliefs That Will Affect Care: None marital status: / Current Living Situation: Alone Current Living Situation Comment: has 17/03 help at home current occupational status: retired How many Children do You have: 1 Feels Safe at Home: Yes Safety Concerns: Feels Safe At This Time Assistive Devices: Walker Physical Exam Vital Signs Vital Signs - 24 hr 10/22/22 10:57 10/22/22 11:14 10/22/22 11:44 Pulse Rate 92 H Respiratory Rate 20 24 Respiratory Effort / Characteristics Non-Labored Non-Labored Respiratory Depth Normal Normal Respiratory Pattern Blood Pressure 107/69 Blood Pressure [Right Arm] 140/58 L Blood Pressure Mean 81 Blood Pressure Mean [Right Arm] 85 Pulse Oximetry 89 L 96 Oxygen Delivery Method Room Air Nasal Cannula Nasal Cannula Oxygen Flow Rate 2 Sepsis Recent Fever Within 48 Hours No Sepsis New/Unexplained Change in Mental Status N/A Sepsis Action Taken by Nursing No Action Required 10/22/22 12:14 10/22/22 13:02 10/22/22 13:20 Pulse Rate 61 Respiratory Rate Respiratory Effort / Characteristics Non-Labored Respiratory Depth Normal Respiratory Pattern Regular Blood Pressure Blood Pressure [Right Arm] Blood Pressure Mean Blood Pressure Mean [Right Arm] Pulse Oximetry Oxygen Delivery Method Nasal Cannula Oxygen Flow Rate Sepsis Recent Fever Within 48 Hours Sepsis New/Unexplained Change in Mental Status Sepsis Action Taken by Nursing 10/22/22 15:11 Pulse Rate Respiratory Rate Respiratory Effort / Characteristics Non-Labored Spontaneous Respiratory Depth Respiratory Pattern Blood Pressure Blood Pressure [Right Arm] 140/58 L Blood Pressure Mean Blood Pressure Mean [Right Arm] 85 Pulse Oximetry 96 Oxygen Delivery Method Nasal Cannula Oxygen Flow Rate Sepsis Recent Fever Within 48 Hours Sepsis New/Unexplained Change in Mental Status Sepsis Action Taken by Nursing Physical Exam HENT: Exam performed. -Head: Normocephalic and atraumatic. NECK: Normal range of motion. Neck supple. No JVD present. No spinous process tenderness present. CV: Normal rate, regular rhythm, normal heart sounds and intact distal pulses. Palpable radial pulses bue. PULM/CHEST: Rhonchi bilaterally and inspiratory rales bilaterally. ABD: The abdomen is soft. There is no tenderness. There is no rebound, no guarding. MUSC/SKEL: Pelvis stable. Lymphedema bilaterally. NEURO: She is alert and oriented to person, place, and time. She has normal strength. No cranial nerve deficit or sensory deficit. Coordination and gait normal. GCS eye subscore is 4. GCS verbal subscore is 5. GCS motor subscore is 6. Cerebellar tests wnl. SKIN: Skin is warm and dry. She is not diaphoretic. PSYCH: She has a normal mood and affect. Behavior is normal. Judgment and thought content normal. Course Course 1107: The patient was evaluated in room C4. A complete history and physical exam was performed Cardiac monitoring: An order was placed for continuous cardiac monitoring. The monitor shows a rate of 90 with sinus rhythm interpreted by me. Patient was found to be hypoxic on room air. Patient does not usually wear supplemental oxygen. Supplemental oxygen was applied to the patient via nasal cannula which improved her oxygen saturation. 1615: Vital signs stable on supplemental oxygen via nasal cannula. Labs show w brijesh blood cell count of 6.09 venous blood gas shows venous pH 7.4 venous PCO2 of 53 venous bicarb of 33. Patient's creatinine 1.26. Initial lactic acid 3.4. Chest x-ray showed no pneumonia. Procalcitonin negative. Patient's COVID and influenza swab negative. Urinalysis shows greater than 30 white blood cells and 2+ leukocyte esterase however negative bacteria negative nitrates. It is uncle ar if the patient is still suffering from UTI however given the patient's elevated lactic acid will treat with broad-spectrum antibiotics after discussed with pharmacy. Patient was treated with 30 cc/kg bolus of normal saline. It is unclear if the patient's lactic acidemia is secondary to her hypoxia or due to sepsis caused by a UTI. Imaging is within normal limits CT of the chest negative for PE CT of the head within normal limits no pneumonia. Patient will be admitted to the [facility] team. Administered Medications Discontinued Medications Sodium Chloride (Nss) 500 mls @ 125 mls/hr IV .Q4H BRENT Stop: 11/21/22 12:14 Last Infusion: 10/22/22 18:39 Dose: 0 mls/hr Documented By: Infusion: 10/22/22 18:38 Dose: 125 mls/hr Documented By: Admin: 10/22/22 17:19 Dose: 125 mls/hr Documented By: Infusion: 10/22/22 16:35 Dose: 125 mls/hr Documented By: Admin: 10/22/22 12:35 Dose: 125 mls/hr Documented By: JUJU Sodium Chloride (Nss 1000ml) 2,000 mls @ 999 mls/hr IV .Q2H1M ONE Stop: 10/22/22 15:50 Last Infusion: 10/22/22 17:20 Dose: 0 mls/hr Documented By: Admin: 10/22/22 14:25 Dose: 999 mls/hr Documented By: JUJU Meropenem 500 mg/ Syringe 10 mls @ 2 mls/min IV Q8H BRENT; Protocol Stop: 11/01/22 13:59 Last Admin: 10/22/22 15:10 Dose: 2 mls/min Documented By: JUJU Ioversol (Optiray 320 500ml) 105 ml IV ONCE ONE Stop: 10/22/22 14:59 Last Admin: 10/22/22 14:59 Dose: 105 ml Documented By: BRENNEN Critical Care Time Critical Care Time: Yes Total Critical Care Time: 53 I have personally spent greater than 53 minutes of critical care time in the direct management of this patient. This includes bedside care, interpretation of diagnostic studies, and testing, discussion with consultants, patient, and family members, and other required patient management activities. This 53 minutes is in excess of all separately billable procedures. Medical Decision Making Laboratory Data Attestation: I reviewed the patient's lab results. 10/22/22 11:29 10/22/22 11:29 Lab Results 10/22/22 10/22/22 10/22/22 Range/Units 11:29 11:29 11:29 WBC 6.09 (4.8-10.8) K/ul RBC 3.20 L (4.20-5.40) M/uL Hgb 11.8 L (12.0-16.0) g/dl Hct 35.6 L (37.0-47.0) % MCV 111.3 H (80.0-100.0) fL MCH 36.9 H (25.0-34.0) pg MCHC 33.1 (32.0-36.0) g/dL RDW Std Deviation 53.3 H (36.4-46.3) fL RDW Coeff of Jon 13.0 (11.5-14.5) % Plt Count 261 (130-400) K/uL MPV 9.6 (9.4-12.4) fL Immature Gran % (Auto) 0.3 % Neut % (Auto) 63.5 % Lymph % (Auto) 24.8 % Nash % (Auto) 10.2 % Eos % (Auto) 0.7 % Baso % (Auto) 0.5 % Neut # (Auto) 3.87 (1.40-6.50) K/uL Lymph # (Auto) 1.51 (1.2-3.4) K/uL Nash # (Auto) 0.62 H (0.11-0.59) K/uL Eos # (Auto) 0.04 (0-0.50) K/uL Baso # (Auto) 0.03 (0-0.2) K/uL Immature Gran # (Auto) 0.02 (0.01-0.20) K/uL Absolute Nucleated RBC 0.02 (0-0.12) K/uL Nucleated RBC % (auto) 0.3 % Macrocytosis Present PT (9.0-12.0) Seconds INR (0.9-1.1) APTT (21.0-31.0) Seconds PTT Ratio VBG pH (7.36-7.41) VBG pCO2 (38-50) mmHg VBG pO2 mmHg VBG HCO3 mmol/L VBG O2 Saturation % VBG Base Excess mEq/L Sodium 136 (136-145) mmol/L Potassium 4.0 (3.5-5.1) mmol/L Chloride 99 (98-107) mmol/L Carbon Dioxide 30 (21-32) mmol/L Anion Gap 7 (3-11) BUN 38 H (6-23) mg/dl Creatinine 1.26 H (0.6-1.2) mg/dl Est Cr Clr Drug Dosing Not Reportable Est GFR ( Amer) 44.4 ml/min Est GFR (Non-Af Amer) 38.3 ml/min BUN/Creatinine Ratio 30.2 H (10-20) Glucose 257 H (70-99(Fasting)) mg/dl POC Glucose (70-99) mg/dl Lactate 3.4 H* (0.4-2.0) mmol/L Calcium 9.7 (8.5-10.1) mg/dl Magnesium 2.2 (1.7-2.4) mg/dl Total Bilirubin 0.6 (0.2-1.0) mg/dl Direct Bilirubin 0.1 (0-0.2) mg/dl AST 15 (13-39) U/L ALT 15 (7-52) U/L Alkaline Phosphatase 67 (34-104) U/L Troponin I High Sens 12.2 (0-14) pg/ml B-Natriuretic Peptide (0-100) pg/ml Total Protein 7.1 (6.0-8.3) gm/dl Albumin 4.0 (3.4-5.0) gm/dl Procalcitonin (0-0.5) ng/ml Urine Color Urine Appearance (Clear) Urine pH (4.5-7.5) Ur Specific [place] (1.000-1.030) Urine Protein (Negative) Urine Glucose (UA) (Negative) Urine Ketones (Negative) Urine Blood (Negative) Urine Nitrite (Negative) Urine Bilirubin (Negative) Urine Urobilinogen (Negative) Ur Leukocyte Esterase (Negative) Urine WBC (Auto) (0-5) /hpf Urine RBC (Auto) (0-4) /hpf U Hyaline Cast (Auto) (0-5) /lpf U Epithel Cells (Auto) (0-5) /lpf Urine Bacteria (Auto) (Negative) SARS-CoV-2 (PCR) (Negative) Influenza Type A (PCR) (Neg) Influenza Type B (PCR) (Neg) RSV (RT-PCR) (Neg) 10/22/22 10/22/22 10/22/22 Range/Units 11:29 11:29 11:29 WBC (4.8-10.8) K/ul RBC (4.20-5.40) M/uL Hgb (12.0-16.0) g/dl Hct (37.0-47.0) % MCV (80.0-100.0) fL MCH (25.0-34.0) pg MCHC (32.0-36.0) g/dL RDW Std Deviation (36.4-46.3) fL RDW Coeff of Jon (11.5-14.5) % Plt Count (130-400) K/uL MPV (9.4-12.4) fL Immature Gran % (Auto) % Neut % (Auto) % Lymph % (Auto) % Nash % (Auto) % Eos % (Auto) % Baso % (Auto) % Neut # (Auto) (1.40-6.50) K/uL Lymph # (Auto) (1.2-3.4) K/uL Nash # (Auto) (0.11-0.59) K/uL Eos # (Auto) (0-0.50) K/uL Baso # (Auto) (0-0.2) K/uL Immature Gran # (Auto) (0.01-0.20) K/uL Absolute Nucleated RBC (0-0.12) K/uL Nucleated RBC % (auto) % Macrocytosis PT 11.0 (9.0-12.0) Seconds INR 1.0 (0.9-1.1) APTT 25.9 (21.0-31.0) Seconds PTT Ratio 0.9 VBG pH (7.36-7.41) VBG pCO2 (38-50) mmHg VBG pO2 mmHg VBG HCO3 mmol/L VBG O2 Saturation % VBG Base Excess mEq/L Sodium (136-145) mmol/L Potassium (3.5-5.1) mmol/L Chloride (98-107) mmol/L Carbon Dioxide (21-32) mmol/L Anion Gap (3-11) BUN (6-23) mg/dl Creatinine (0.6-1.2) mg/dl Est Cr Clr Drug Dosing Est GFR ( Amer) ml/min Est GFR (Non-Af Amer) ml/min BUN/Creatinine Ratio (10-20) Glucose (70-99(Fasting)) mg/dl POC Glucose (70-99) mg/dl Lactate (0.4-2.0) mmol/L Calcium (8.5-10.1) mg/dl Magnesium (1.7-2.4) mg/dl Total Bilirubin (0.2-1.0) mg/dl Direct Bilirubin (0-0.2) mg/dl AST (13-39) U/L ALT (7-52) U/L Alkaline Phosphatase (34-104) U/L Troponin I High Sens (0-14) pg/ml B-Natriuretic Peptide 49 (0-100) pg/ml Total Protein (6.0-8.3) gm/dl Albumin (3.4-5.0) gm/dl Procalcitonin < 0.05 (0-0.5) ng/ml Urine Color Urine Appearance (Clear) Urine pH (4.5-7.5) Ur Specific [place] (1.000-1.030) Urine Protein (Negative) Urine Glucose (UA) (Negative) Urine Ketones (Negative) Urine Blood (Negative) Urine Nitrite (Negative) Urine Bilirubin (Negative) Urine Urobilinogen (Negative) Ur Leukocyte Esterase (Negative) Urine WBC (Auto) (0-5) /hpf Urine RBC (Auto) (0-4) /hpf U Hyaline Cast (Auto) (0-5) /lpf U Epithel Cells (Auto) (0-5) /lpf Urine Bacteria (Auto) (Negative) SARS-CoV-2 (PCR) (Negative) Influenza Type A (PCR) (Neg) Influenza Type B (PCR) (Neg) RSV (RT-PCR) (Neg) 10/22/22 10/22/22 10/22/22 Range/Units 11:47 12:13 12:30 WBC (4.8-10.8) K/ul RBC (4.20-5.40) M/uL Hgb (12.0-16.0) g/dl Hct (37.0-47.0) % MCV (80.0-100.0) fL MCH (25.0-34.0) pg MCHC (32.0-36.0) g/dL RDW Std Deviation (36.4-46.3) fL RDW Coeff of Jon (11.5-14.5) % Plt Count (130-400) K/uL MPV (9.4-12.4) fL Immature Gran % (Auto) % Neut % (Auto) % Lymph % (Auto) % Nash % (Auto) % Eos % (Auto) % Baso % (Auto) % Neut # (Auto) (1.40-6.50) K/uL Lymph # (Auto) (1.2-3.4) K/uL Nash # (Auto) (0.11-0.59) K/uL Eos # (Auto) (0-0.50) K/uL Baso # (Auto) (0-0.2) K/uL Immature Gran # (Auto) (0.01-0.20) K/uL Absolute Nucleated RBC (0-0.12) K/uL Nucleated RBC % (auto) % Macrocytosis PT (9.0-12.0) Seconds INR (0.9-1.1) APTT (21.0-31.0) Seconds PTT Ratio VBG pH 7.40 (7.36-7.41) VBG pCO2 53 H (38-50) mmHg VBG pO2 41 mmHg VBG HCO3 33 mmol/L VBG O2 Saturation 62.7 % VBG Base Excess 6.7 mEq/L Sodium (136-145) mmol/L Potassium (3.5-5.1) mmol/L Chloride (98-107) mmol/L Carbon Dioxide (21-32) mmol/L Anion Gap (3-11) BUN (6-23) mg/dl Creatinine (0.6-1.2) mg/dl Est Cr Clr Drug Dosing Est GFR ( Amer) ml/min Est GFR (Non-Af Amer) ml/min BUN/Creatinine Ratio (10-20) Glucose (70-99(Fasting)) mg/dl POC Glucose 249 H (70-99) mg/dl Lactate (0.4-2.0) mmol/L Calcium (8.5-10.1) mg/dl Magnesium (1.7-2.4) mg/dl Total Bilirubin (0.2-1.0) mg/dl Direct Bilirubin (0-0.2) mg/dl AST (13-39) U/L ALT (7-52) U/L Alkaline Phosphatase (34-104) U/L Troponin I High Sens (0-14) pg/ml B-Natriuretic Peptide (0-100) pg/ml Total Protein (6.0-8.3) gm/dl Albumin (3.4-5.0) gm/dl Procalcitonin (0-0.5) ng/ml Urine Color Yellow Urine Appearance Cloudy A (Clear) Urine pH 6.0 (4.5-7.5) Ur Specific [place] 1.013 (1.000-1.030) Urine Protein 1+ H (Negative) Urine Glucose (UA) Negative (Negative) Urine Ketones Negative (Negative) Urine Blood Negative (Negative) Urine Nitrite Negative (Negative) Urine Bilirubin Negative (Negative) Urine Urobilinogen Negative (Negative) Ur Leukocyte Esterase 2+ H (Negative) Urine WBC (Auto) >30 H (0-5) /hpf Urine RBC (Auto) 0-4 (0-4) /hpf U Hyaline Cast (Auto) 1-5 (0-5) /lpf U Epithel Cells (Auto) 0-5 (0-5) /lpf Urine Bacteria (Auto) Negative (Negative) SARS-CoV-2 (PCR) (Negative) Influenza Type A (PCR) (Neg) Influenza Type B (PCR) (Neg) RSV (RT-PCR) (Neg) 10/22/22 10/22/22 Range/Units 12:40 15:16 WBC (4.8-10.8) K/ul RBC (4.20-5.40) M/uL Hgb (12.0-16.0) g/dl Hct (37.0-47.0) % MCV (80.0-100.0) fL MCH (25.0-34.0) pg MCHC (32.0-36.0) g/dL RDW Std Deviation (36.4-46.3) fL RDW Coeff of Jon (11.5-14.5) % Plt Count (130-400) K/uL MPV (9.4-12.4) fL Immature Gran % (Auto) % Neut % (Auto) % Lymph % (Auto) % Nash % (Auto) % Eos % (Auto) % Baso % (Auto) % Neut # (Auto) (1.40-6.50) K/uL Lymph # (Auto) (1.2-3.4) K/uL Nash # (Auto) (0.11-0.59) K/uL Eos # (Auto) (0-0.50) K/uL Baso # (Auto) (0-0.2) K/uL Immature Gran # (Auto) (0.01-0.20) K/uL Absolute Nucleated RBC (0-0.12) K/uL Nucleated RBC % (auto) % Macrocytosis PT (9.0-12.0) Seconds INR (0.9-1.1) APTT (21.0-31.0) Seconds PTT Ratio VBG pH (7.36-7.41) VBG pCO2 (38-50) mmHg VBG pO2 mmHg VBG HCO3 mmol/L VBG O2 Saturation % VBG Base Excess mEq/L Sodium (136-145) mmol/L Potassium (3.5-5.1) mmol/L Chloride (98-107) mmol/L Carbon Dioxide (21-32) mmol/L Anion Gap (3-11) BUN (6-23) mg/dl Creatinine (0.6-1.2) mg/dl Est Cr Clr Drug Dosing Est GFR ( Amer) ml/min Est GFR (Non-Af Amer) ml/min BUN/Creatinine Ratio (10-20) Glucose (70-99(Fasting)) mg/dl POC Glucose (70-99) mg/dl Lactate 1.1 (0.4-2.0) mmol/L Calcium (8.5-10.1) mg/dl Magnesium (1.7-2.4) mg/dl Total Bilirubin (0.2-1.0) mg/dl Direct Bilirubin (0-0.2) mg/dl AST (13-39) U/L ALT (7-52) U/L Alkaline Phosphatase (34-104) U/L Troponin I High Sens (0-14) pg/ml B-Natriuretic Peptide (0-100) pg/ml Total Protein (6.0-8.3) gm/dl Albumin (3.4-5.0) gm/dl Procalcitonin (0-0.5) ng/ml Urine Color Urine Appearance (Clear) Urine pH (4.5-7.5) Ur Specific [place] (1.000-1.030) Urine Protein (Negative) Urine Glucose (UA) (Negative) Urine Ketones (Negative) Urine Blood (Negative) Urine Nitrite (Negative) Urine Bilirubin (Negative) Urine Urobilinogen (Negative) Ur Leukocyte Esterase (Negative) Urine WBC (Auto) (0-5) /hpf Urine RBC (Auto) (0-4) /hpf U Hyaline Cast (Auto) (0-5) /lpf U Epithel Cells (Auto) (0-5) /lpf Urine Bacteria (Auto) (Negative) SARS-CoV-2 (PCR) NEGATIVE (Negative) Influenza Type A (PCR) Negative (Neg) Influenza Type B (PCR) Negative (Neg) RSV (RT-PCR) Negative (Neg) Imaging Data Attestation: I personally reviewed and interpreted this imaging study as follows: My Impression: No significant change from the chest x-ray done in April 2021 Radiologist's Impression: Chest X-Ray 10/22/22 11:14 XR chest 1V portable CLINICAL HISTORY: Sepsis TECHNIQUE: Single frontal radiograph of the chest was obtained. Comparison: Comparison is made to chest radiograph 05/14/2021 FINDINGS: Dual lead pacemaker is seen. The cardiomediastinal silhouette is normal. The lungs are clear. No evidence of pleural effusion or pneumothorax. IMPRESSION: No acute abnormalities and in particular no evidence of pneumonia. ACT 112: Negative or not required by law. Electronically signed by: Yosef Prieto M.D. 10/22/2022 12:[address] 10/22/22 11:14 CT head/brain wo con CLINICAL HISTORY: 87 years-old Female with near syncope. Acute weakness with syncope TECHNIQUE: Multiple axial CT images of the head were obtained without contrast. A dose lowering technique was utilized adhering to the principles of ALARA. CT DOSE: 720.95 mGycm COMPARISON: 05/12/2021. FINDINGS: No acute intracranial hemorrhage, midline shift, intracranial mass, hydrocephalus, territorial ischemia or abnormal extra-axial collection. Involutional changes with chronic microvascular ischemic disease. The calvarium is intact. Prior bilateral lens repair. Unremarkable soft tissues. The paranasal sinuses, mastoid air cells, and middle ear cavities are clear. IMPRESSION: No acute intracranial abnormality or calvarial fracture. ACT 112: Negative or not required by law. The above report was generated using voice recognition software. It may contain grammatical, syntax or spelling errors. Electronically signed by: Declan Sevilla M.D. 10/22/2022 1:15 PM Chest CTA 10/22/22 13:52 CT angio chest PE protocol CT DOSE: 725.86 mGy.cm HISTORY: 87 years-old Female with ro PE. Acute chest pain with shortness of breath TECHNIQUE: Multiple CTA images of the chest were obtained after the intravenous administration of 105 ml Optiray. Coronal and sagittal MIPS were obtained from the axial data set and were submitted for review. All measurements were obtained according to NASCET criteria. A dose lowering technique was utilized adhering to the principles of ALARA. COMPARISON: CT chest 05/11/2019 FINDINGS: CTA: Moderate cardiomegaly. No pericardial effusion. Left subclavian pacer. A therosclerosis of the aorta without thoracic aortic aneurysm or dissection. Patency of the imaged great vessels. Suboptimal evaluation of the pulmonary arterial tree secondary to contrast bolus timing and respiratory motion artifact. No central pulmonary emboli identified. CT CHEST: Unremarkable thyroid. No lymphadenopathy. There is no pneumothorax, pleural effusion or overt pulmonary edema. Mild subsegmental linear bibasilar consolidation. No suspicious pulmonary nodules or masses identified. Mild nonspecific distal esophageal wall thickening. Osteoarthritis of the bilateral shoulders with intra-articular loose bodies and likely degenerative glenohumeral joint effusions. Multilevel degenerative changes of the spine. IMPRESSION: 1. Limited exam as above. No central pulmonary emboli identified. 2. Subsegmental bibasilar consolidative densities suggest atelectasis. 3. Cardiomegaly without pulmonary edema. ACT 112: Negative or not required by law. The above report was generated using voice recognition software. It may contain grammatical, syntax or spelling errors. Electronically signed by: Declan Sevilla M.D. 10/22/2022 3:53 PM ECG Data Attestation: I personally reviewed and interpreted this ECG as follows: Additional Comments: Paced rhythm with a rate of 73. CT 142 QRS 176 QTc 522. No ectopy. [facility] Narrative 1107: The patient was evaluated in room C4. A complete history and physical exam was performed Cardiac monitoring: An order was placed for continuous cardiac monitoring. The monitor shows a rate of 90 with sinus rhythm interpreted by me. Patient was found to be hypoxic on room air. Patient does not usually wear supplemental oxygen. Supplemental oxygen was applied to the patient via nasal cannula which improved her oxygen saturation. 1615: Vital signs stable on supplemental oxygen via nasal cannula. Labs show white blood cell count of 6.09 venous blood gas shows venous pH 7.4 venous PCO2 of 53 venous bicarb of 33. Patient's creatinine 1.26. Initial lactic acid 3.4. Chest x-ray showed no pneumonia. Procalcitonin negative. Patient's COVID and influenza swab negative. Urinalysis shows greater than 30 white blood cells and 2+ leukocyte esterase however negative bacteria negative nitrates. It is unclear if the patient is still suffering from UTI however given the patient's elevated lactic acid will treat with broad-spectrum antibiotics after discussed with pharmacy. Patient was treated with 30 cc/kg bolus of normal saline. It is unclear if the patient's lactic acidemia is secondary to her hypoxia or due to sepsis caused by a UTI. Imaging is within normal limits CT of the chest negat shawn for PE CT of the head within normal limits no pneumonia. Patient will be admitted to the [facility]. Impression & Plan Hypoxia, Acute UTI, Lactic acidemia Discharge Plan Visit Data Chief Complaint: Weakness Stated Complaint: WEAKNESS, UNABLE TO AMBULATE ED Provider: Sekou Serrano Discharge Problem: Hypoxia, Acute UTI, Lactic acidemia Patient Disposition: Admitted As Inpatient Discharge Instructions Interventions: ED Discharge Assessment Last Done: 10/22/22 17:45
--- NOTE | 2022-10-22 12:01 | XRay Report ---
XR chest 1V portable CLINICAL HISTORY: Sepsis TECHNIQUE: Single frontal radiograph of the chest was obtained. Comparison: Comparison is made to chest radiograph 05/14/2021 FINDINGS: Dual lead pacemaker is seen. The cardiomediastinal silhouette is normal. The lungs are clear. No evid ence of pleural effusion or pneumothorax. IMPRESSION: No acute abnormalities and in particular no evidence of pneumonia. ACT 112: Negative or not required by law. Electronically signed by: Yosef Prieto M.D. 10/22/2022 12:00 PM
[2022-10-22 12:16] LABS: Basophils # (auto) 0.03 K/uL (0-0.2); Basophils % (auto) 0.5 %; Eosinophils # (auto) 0.04 K/uL (0-0.50); Eosinophils % (auto) 0.7 %; Hematocrit (blood only) 35.6 % (37.0-47.0); Hemoglobin 11.8 g/dl (12.0-16.0); Immature Granulocytes # (auto) 0.02 K/uL (0.01-0.20); Immature Granulocytes % (auto) 0.3 %; Lymphocytes # (auto) 1.51 K/uL (1.2-3.4); Lymphocytes % (auto) 24.8 %; Mean Corpuscular Hemoglobin 36.9 pg (25.0-34.0); Mean Corpuscular Hgb Conc 33.1 g/dL (32.0-36.0); Mean Corpuscular Volume 111.3 fL (80.0-100.0); Mean Platelet Volume 9.6 fL (9.4-12.4); Monocytes # (auto) 0.62 K/uL (0.11-0.59); Monocytes % (auto) 10.2 %; Neutrophils # (auto) 3.87 K/uL (1.40-6.50); Neutrophils % (auto) 63.5 %; Nucleated RBC # (auto) 0.02 K/uL (0-0.12); Nucleated RBC % (auto) 0.3 %; Platelet Count 261 K/uL (130-400); RDW Standard Deviation 53.3 fL (36.4-46.3); White Blood Count 6.09 K/ul (4.8-10.8)
[2022-10-22 12:30] LABS: Alanine Aminotransferase 15 U/L (7-52); Alkaline Phosphatase 67 U/L (34-104); Anion Gap 7 (3-11); Aspartate Aminotransferase 15 U/L (13-39); BUN Creatinine Ratio 30.2 (10-20); Bilirubin Direct 0.1 mg/dl (0-0.2); Bilirubin,Total 0.6 mg/dl (0.2-1.0); Blood Urea Nitrogen 38 mg/dl (6-23); Calcium 9.7 mg/dl (8.5-10.1); Carbon Dioxide 30 mmol/L (21-32); Chloride 99 mmol/L (98-107); Est GFR (African American) 44.4 ml/min; Est GFR (Non-African American) 38.3 ml/min; Glucose 257 mg/dl (70-99(Fasting)); Magnesium 2.2 mg/dl (1.7-2.4); Sodium 136 mmol/L (136-145); Total Protein 7.1 gm/dl (6.0-8.3)
[2022-10-22 12:35] LABS: Troponin I High Sensitivity 12.2 pg/ml (0-14)
[2022-10-22] MEDS: SODIUM CHLORIDE 0.9% 500 ML IV SCH ×2 (12:35→17:19)
[2022-10-22 12:36] LABS: Partial Thromboplastin Ratio 0.9; Partial Thromboplastin Time 25.9 Seconds (21.0-31.0)
[2022-10-22 12:37] LABS: Base Excess VBG 6.7 mEq/L; HCO3 VBG 33 mmol/L; Oxygen Saturation VBG 62.7 %; PCO2 VBG 53 mmHg (38-50); PO2 VBG 41 mmHg
[2022-10-22 12:50] LABS: Macrocytosis Present
[2022-10-22 13:02] LABS: Appearance Urine Cloudy (Clear); Bacteria Urine Automated Negative (Negative); Bilirubin Urine Negative (Negative); Blood Urine Negative (Negative); Color Urine Yellow; Epithelial Cell Urine Auto 0-5 /lpf (0-5); Glucose Urine UA Negative (Negative); Ketones Urine Negative (Negative); Leukocyte Esterase Urine 2+ (Negative); Nitrite Urine Negative (Negative); Protein Urine 1+ (Negative); RBC Urine Automated 0-4 /hpf (0-4); Specific Gravity Urine 1.013 (1.000-1.030); Urobilinogen Urine Negative (Negative); WBC Urine Automated >30 /hpf (0-5)
--- NOTE | 2022-10-22 13:16 | CT Scan Report ---
CT head/brain wo con CLINICAL HISTORY: 87 years-old Female with near syncope. Acute weakness with syncope TECHNIQUE: Multiple axial CT images of the head were obtained without contrast. A dose lowering tech nique was utilized adhering to the principles of ALARA. CT DOSE: 720.95 mGycm COMPARISON: 05/12/2021. FINDINGS: No acute intracranial hemorrhage, midline shift, intracranial mass, hydrocephalus, territorial ischem ia or abnormal extra-axial collection. Involutional changes with chronic microvascular ischemic disea se. The calvarium is intact. Prior bilateral lens repair. Unremarkable soft tissues. The paranasal sinuse s, mastoid air cells, and middle ear cavities are clear. IMPRESSION: No acute intracranial abnormality or calvarial fracture. ACT 112: Negative or not required by law. The above report was generated using voice recognition software. It may contain grammatical, syntax o r spelling errors. Electronically signed by: Declan Sevilla M.D. 10/22/2022 1:15 PM
[2022-10-22] MEDS ORDERED: SODIUM CHLORIDE 0.9% 1000ML 2,000 ML IV ONE (13:50)
[2022-10-22] MEDS ORDERED: MEROPENEM 500 MG in SYRINGE 0 ML IV SCH (14:00)
[2022-10-22 14:23] LABS: Influenza A virus by PCR Negative (Neg); Influenza B virus by PCR Negative (Neg); RSV by PCR Negative (Neg); SARS CoV2 RNA(COVID-19) Ceph NEGATIVE (Negative)
--- NOTE | 2022-10-22 14:46 | Electrocardiogram Report ---
Test Reason : Blood Pressure : / mmHG Vent. Rate : 073 BPM Atrial Rate : 073 BPM P-R Int : 142 ms QRS Dur : 176 ms QT Int : 474 ms P-R-T Axes : 011 152 108 degrees QTc Int : 522 ms Atrial-sensed ventricular-paced rhythm Biventricular pacemaker detected Abnormal ECG When compared with ECG of 12-MAY-2021 03:50, Vent. rate has decreased BY 16 BPM Confirmed by Adalberto Giron ([id number]) on 10/22/2022 2:45:40 PM Referred By: ED Confirmed By:Adalberto Giron
[2022-10-22] MEDS ORDERED: OPTIRAY 320 500ml IV ONE (14:58)
--- NOTE | 2022-10-22 15:54 | CT Scan Report ---
CT angio chest PE protocol CT DOSE: 725.86 mGy.cm HISTORY: 87 years-old Female with ro PE. Acute chest pain with shortness of breath TECHNIQUE: Multiple CTA images of the chest were obtained after the intravenous administration of 105 ml Optiray. Coronal and sagittal MIPS were obtained from the axial data set and were submitted for review. All measurements were obtained according to NASCET criteria. A dose lowering technique was u tilized adhering to the principles of ALARA. COMPARISON: CT chest 05/11/2019 FINDINGS: CTA: Moderate cardiomegaly. No pericardial effusion. Left subclavian pacer. Atherosclerosis of the aorta w ithout thoracic aortic aneurysm or dissection. Patency of the imaged great vessels. Suboptimal evalua tion of the pulmonary arterial tree secondary to contrast bolus timing and respiratory motion artifac t. No central pulmonary emboli identified. CT CHEST: Unremarkable thyroid. No lymphadenopathy. There is no pneumothorax, pleural effusion or overt pulmona ry edema. Mild subsegmental linear bibasilar consolidation. No suspicious pulmonary nodules or masses identified. Mild nonspecific distal esophageal wall thickening. Osteoarthritis of the bilateral shoulders with in tra-articular loose bodies and likely degenerative glenohumeral joint effusions. Multilevel degenerat shawn changes of the spine. IMPRESSION: 1. Limited exam as above. No central pulmonary emboli identified. 2. Subsegmental bibasilar consolidative densities suggest atelectasis. 3. Cardiomegaly without pulmonary edema. ACT 112: Negative or not required by law. The above report was generated using voice recognition software. It may contain grammatical, syntax o r spelling errors. Electronically signed by: Declan Sevilla M.D. 10/22/2022 3:53 PM
--- NOTE | 2022-10-22 16:45 | History & Physical Report ---
Date of Service October 22, 2022 Assessment & Plan (1) UTI due to extended-spectrum beta lactamase (ESBL) producing Escherichia coli: (2) Hypoxia: (3) HTN (hypertension): (4) Diabetes mellitus, type II: (5) Aortic stenosis, moderate: (6) Lymphedema: (7) Hypothyroidism: (8) CHF (congestive heart failure): Plan: This is an 87-year-old female with PMH DM type II, recurrent UTIs, hypothyroidism, hyperlipidemia, CKD 3, chronic systolic congestive heart failu re, exertional dyspnea, first-degree AV block, left bundle-branch block, CAD, hypertension, lymphedema of both lower extremities, aspirin allergy, history of moderate aortic stenosis, history of ischemic cardiomyopathy, status post biventricular cardiac pacemaker who presents with generalized weakness, near syncope and UTI. UTI due to extended-spectrum beta lactamase (ESBL) producing Escherichia coli Generalized weakness Urine culture from 10/11 growing ESBL E. coli Completed 4/5 day course of IV Ertapenem, received Meropenem in ED today Still having dysuria but significantly improved Outpatient ID scheduled for today but presented to ED - will consult for recommendations Fall precautions, PT/OT evaluation Lactic acidosis Initially 3.4 but improved to 1.1 after fluids Hypoxia Minimally present today, 86% on RA improved to 99 on 2L NC Present on previous admission as well and resolved CXR and chest CTA unremarkable Would benefit from 2 step at time of dc Hypothyroidism Continue levothyroxine HTN (hypertension) Normotensive. Continue metoprolol, lisinopril with holding parameters Monitor BP Adjust medications as needed Chronic systolic heart failure Moderate aortic stenosis [place] to be dry in ED, received IV fluids in ED Plan on resuming home diuretics tomorrow after BMP S/p pacemaker placement DVT Ppx: SQ heparin Code status: DNR PCP: [facility] Dispo: Admit to med tele Patient seen in collaboration with Dr. Richard. Please see addendum. A total of 80 minutes were spent with greater than 50% of that time face to face with the patient, personally reviewing all current laboratories, imaging studies, past medication reconciliation, outpatient chart review, and discussion with specialists to collaborate care for the patient with attending and utilization of translation services. Please see attending documentation for corrections and/or additions. History of Present Illness Chief Complaint: Weakness, Primary Care Provider: Verónica Benavides MD This is an 87-year-old female with PMH DM type II, recurrent UTIs, hypoth yroidism, hyperlipidemia, CKD 3, chronic systolic congestive heart failure, exertional dyspnea, first-degree AV block, left bundle-branch block, CAD, hypertension, lymphedema of both lower extremities, aspirin allergy, history of moderate aortic stenosis, history of ischemic cardiomyopathy, status post biventricular cardiac pacemaker who presents with generalized weakness, near syncope and UTI. Lives at home with 24 hr care. Woke up feeling weak and legs gave out from underneath her but no loss of consciousness or head trauma. Nursing staff reportedly caught her in a chair. Patient is being treated for a UTI with outpatient urine culture from 10/11/22 growing ESBL e coli and was prescribed 5 day course of IV Ertapenem. Today would be last day. Urinary symptoms have improved but still feels weak. Only took levothyroxine and Protonix this morning. Denies any fever, chills, headache, CP, SOB, N/V, abdominal pain, hematuria, dysuria, diarrhea or constipation. Allergies Allergy/AdvReac Type Severity Reaction Status Date / Time aspirin Allergy Intermediate Hives, Verified 05/12/21 02:24 shortness of breath ibuprofen Allergy Intermediate Rash, hives Verified 05/12/21 02:24 Penicillins Allergy Intermediate Rash, hives Verified 05/12/21 02:24 adhesive Allergy Mild Reddened Verified 05/12/21 02:24 and sore skin ciprofloxacin AdvReac Intermediate Weakness Verified 05/12/21 02:24 prednisone AdvReac Mild Confusion Verified 05/12/21 02:24 Home Medications Medication Instructions Recorded Confirmed Type acetaminophen 500 mg tablet 1,000 mg PO Q8H PRN pain #30 tabs 05/29/21 10/22/22 Rx (Tylenol Extra Strength) cholecalciferol (vitamin D3) 25 1,000 unit PO QAM #30 caps 05/29/21 10/22/22 Rx mcg (1,000 unit) capsule docusate sodium 100 mg capsule 300 mg PO DAILY PRN Constipation 05/29/21 10/22/22 Rx (Colace) #30 caps glucosamine sulf dipot 1 cap PO BID #60 caps 05/29/21 10/22/22 Rx chlr,msm,chond 550 mg-C 30 mg-vandana 1 mg capsule (Glucosamine Chondroitin) levothyroxine 88 mcg tablet 88 mcg PO QAM #30 tabs 10/05/21 02/28/23 Rx magnesium oxide 400 mg (241.3 mg 400 mg PO QAM #30 tabs 05/29/21 10/22/22 Rx magnesium) tablet metoprolol succinate 25 mg 12.5 mg PO QAM #30 tabs 05/29/21 10/22/22 Rx tablet,extended release 24 hr (Toprol XL) multivitamin 1 tab PO QAM #30 tabs 05/29/21 10/22/22 Rx potassium chloride 20 mEq 20 meq PO BID #60 tabs 05/29/21 10/22/22 Rx tablet,extended release(part/cryst) sennosides 8.6 mg tablet (Senokot) 8.6 mg PO HS #30 tabs 05/29/21 10/22/22 Rx d-mannose 500 mg capsule 1,000 mg PO BID 10/22/22 10/22/22 History mirabegron 25 mg tablet,extended 25 mg PO DAILY 10/22/22 10/22/22 History release 24 hr (Myrbetriq) omeprazole 20 mg capsule,delayed 20 mg PO DAILY 10/22/22 10/22/22 History release spironolactone 25 mg tablet 12.5 mg PO BID 10/22/22 10/22/22 History (Aldactone) torsemide 20 mg tablet 60 mg PO QAM 10/22/22 10/22/22 History Past Med/Surg History Medical History (Updated 10/22/22 @ 19:54 by Sekou Serrano) Arthritis CHF (congestive heart failure) Diabetes mellitus, type II History of recurrent UTIs Hypothyroidism LBBB (left bundle branch block) Lymphedema NICM (nonischemic cardiomyopathy) Pacemaker Pneumonia Systolic heart failure Vertigo Surgical History History of hysterectomy History of knee replacement, total Hx of cholecystectomy Family History Other Diabetes Heart disease Hypertension Social History Smoking Status: Never smoker Second Hand Exposure: No; Do You Dip or Chew Tobacco: No; Tobacco Cessation Education Requested by Patient: No Hx Alcohol Use: No Hx Substance Use: No Preferred Language: [place] Communication Ability: Effective Customer Experience Consultant Required: No Beliefs That Will Affect Care: None marital status: / Current Living Situation: Alone Current Living Situation Comment: has / help at home current occupational status: retired How many Children do You have: 1 Feels Safe at Home: Yes Safety Concerns: Feels Safe At This Time Assistive Devices: Walker Review of Systems Review of Systems: At least ten systems reviewed and negative except as noted in the HPI. Physical Exam Physical Exam: General Appearance: WD/WN, vitals as above, NAD, sitting up in bed, pleasant, conversing easily, morbidly obese Head: normocephalic, atraumatic Eyes: normal inspection, PERRL, conjunctivae normal, anicteric sclerae ENT: external ear and nose normal, oropharynx normal Neck: normal visual inspection, trachea midline, no thyromegaly Respiratory: normal respiratory effort, lungs clear to auscultation, no wheeze, rales, rhonchi. No accessory muscle use Cardiovascular: regular rate, rhythm, no murmur, normal peripheral pulses, +BLE lymphedema Chest: normal inspection of chest Abdomen/GI: normal bowel sounds, soft, nontender, no hepatosplenomegaly Extremities/Musculoskeletal: no cyanosis or clubbing, extremities motor strength 5/5 Neurologic: PERRL, EOMI, accommodation nl, no face palsy, no dysarthria, CN's II-XI intact bilaterally and moves all extremities Psychiatric: A+Ox3, euthymic affect Skin: no rashes, normal color, warm/dry Results & Data Results & Data ([facility]) Vital Signs (Past 12 Hours) Vital Signs Pulse Resp BP BP Pulse Ox O2 Del Method O2 Flow Rate 10/22/22 15:11 140/58 L 96 Nasal Cannula 10/22/22 13:20 61 10/22/22 13:02 Nasal Cannula 10/22/22 11:44 24 140/58 L 96 Nasal Cannula 10/22/22 11:14 Nasal Cannula 2 10/22/22 10:57 92 H 20 107/69 89 L Room Air Laboratory Results Short CBC 10/22/22 Range/Units 11:29 WBC 6.09 (4.8-10.8) K/ul Hgb 11.8 L (12.0-16.0) g/dl Hct 35.6 L (37.0-47.0) % Plt Count 261 (130-400) K/uL BMP 10/22/22 11:29 Sodium 136 Potassium 4.0 Chloride 99 Carbon Dioxide 30 BUN 38 H Creatinine 1.26 H Glucose 257 H Calcium 9.7 Liver Function 10/22/22 Range/Units 11:29 Total Bilirubin 0.6 (0.2-1.0) mg/dl Direct Bilirubin 0.1 (0-0.2) mg/dl AST 15 (13-39) U/L ALT 15 (7-52) U/L Alkaline Phosphatase 67 (34-104) U/L Albumin 4.0 (3.4-5.0) gm/dl Urine 10/22/22 Range/Units 12:30 Urine Color Yellow Urine Appearance Cloudy A (Clear) Urine pH 6.0 (4.5-7.5) Ur Specific [place] 1.013 (1.000-1.030) Urine Protein 1+ H (Negative) Urine Glucose (UA) Negative (Negative) Diagnostic Findings Chest X-Ray 10/22/22 11:14 XR chest 1V portable CLINICAL HISTORY: Sepsis TECHNIQUE: Single frontal radiograph of the chest was obtained. Comparison: Comparison is made to chest radiograph 05/14/2021 FINDINGS: Dual lead pacemaker is seen. The cardiomediastinal silhouette is normal. The lungs are clear. No evidence of pleural effusion or pneumothorax. IMPRESSION: No acute abnormalities and in particular no evidence of pneumonia. ACT 112: Negative or not required by law. Electronically signed by: Yosef Prieto M.D. 10/22/2022 12:[address] 10/22/22 11:14 CT head/brain wo con CLINICAL HISTORY: 87 years-old Female with near syncope. Acute weakness with syncope TECHNIQUE: Multiple axial CT images of the head were obtained without contrast. A dose lowering technique was utilized adhering to the principles of ALARA. CT DOSE: 720.95 mGycm COMPARISON: 05/12/2021. FINDINGS: No acute intracranial hemorrhage, midline shift, intracranial mass, hydrocephalus, territorial ischemia or abnormal extra-axial collection. Involutional changes with chronic microvascular ischemic disease. The calvarium is intact. Prior bilateral lens repair. Unremarkable soft tissues. The paranasal sinuses, mastoid air cells, and middle ear cavities are clear. IMPRESSION: No acute intracranial abnormality or calvarial fracture. ACT 112: Negative or not required by law. The above report was generated using voice recognition software. It may contain grammatical, syntax or spelling errors. Electronically signed by: Declan Sevilla M.D. 10/22/2022 1:15 PM Chest CTA 10/22/22 13:52 CT angio chest PE protocol CT DOSE: 725.86 mGy.cm HISTORY: 87 years-old Female with ro PE. Acute chest pain with shortness of breath TECHNIQUE: Multiple CTA images of the chest were obtained after the intravenous administration of 105 ml Optiray. Coronal and sagittal MIPS were obtained from the axial data set and were submitted for review. All measurements were obtained according to NASCET criteria. A dose lowering technique was utilized ad antoinette to the principles of ALARA. COMPARISON: CT chest 05/11/2019 FINDINGS: CTA: Moderate cardiomegaly. No pericardial effusion. Left subclavian pacer. Atherosclerosis of the aorta without thoracic aortic aneurysm or dissection. Patency of the imaged great vessels. Suboptimal evaluation of the pulmonary arterial tree secondary to contrast bolus timing and respiratory motion artifact. No central pulmonary emboli identified. CT CHEST: Unremarkable thyroid. No lymphadenopathy. There is no pneumothorax, pleural effusion or overt pulmonary edema. Mild subsegmental linear bibasilar cons olidation. No suspicious pulmonary nodules or masses identified. Mild nonspecific distal esophageal wall thickening. Osteoarthritis of the bilateral shoulders with intra-articular loose bodies and likely degenerative glenohumeral joint effusions. Multilevel degenerative changes of the spine. IMPRESSION: 1. Limited exam as above. No central pulmonary emboli identified. 2. Subsegmental bibasilar consolidative densities suggest atelectasis. 3. Cardiomegaly without pulmonary edema. ACT 112: Negative or not required by law. The above report was generated using voice recognition software. It may contain grammatical, syntax or spelling errors. Electronically signed by: Declan Sevilla M.D. 10/22/2022 3:53 PM ECG Additional Comments: Independently reviewed - atrial-sensed paced rhythm Supervising Physician Co-Signing Physician Notes Patient was seen and examined independently. Chart reviewed. Case discussed with LATOYA. Agree with assessment and plan as above
[2022-10-22] MEDS ORDERED: ACETAMINOPHEN 325 MG TAB PO PRN (18:17)
[2022-10-22] MEDS ORDERED: ONDANSETRON INJ 2 MG/ML 2 ML VIAL IV PRN (18:17)
[2022-10-22] MEDS ORDERED: ALUMINUM/MAGNESIUM SUSP 30 ML UDC PO PRN (18:17)
[2022-10-22] MEDS ORDERED: POLYETHYLENE (MIRALAX) 17 GM PACK PO PRN (18:17)
[2022-10-22] MEDS ORDERED: MAGNESIUM HYDROXIDE SUSP 30 ML UDC PO PRN (18:17)
[2022-10-22] MEDS ORDERED: DOCUSATE SODIUM 100 MG CAP PO PRN (18:34)
[2022-10-22] MEDS ORDERED: NON-FORMULARY MEDICATION (D-Mannose 500 mg Capsule) PO SCH (21:00)
[2022-10-22] MEDS ORDERED: NON-FORMULARY MEDICATION (Glucos Sul 2kcl-Msm-Chond-C-Mn [Glucosamine Chondroitin] 550-30- PO SCH (21:00)
[2022-10-22] MEDS: SPIRONOLACTONE 12.5 MG TAB PO SCH (21:12)
[2022-10-22] MEDS: HEPARIN SOD 5,000 UNIT/0.5 ML VIAL SQ SCH (21:12)
[2022-10-22] MEDS: SENNA 8.6 MG TAB PO SCH (21:12)
[2022-10-22] MEDS ORDERED: GLUCOSE 40% GEL 15 GM TUBE PO PRN (21:12)
[2022-10-22] MEDS: POTASSIUM CHLORIDE CRTAB 20 MEQ TABCR PO SCH (21:12)
[2022-10-22] MEDS ORDERED: DEXTROSE 50% 50 ML SYRINGE IV PRN (21:12)
[2022-10-22] MEDS ORDERED: CARBOHYDRATES FOR HYPOGLYCEMIA PO PRN (21:12)
[2022-10-22] MEDS ORDERED: GLUCOSE 10 TAB/TUBE PO PRN (21:12)
[2022-10-22] MEDS ORDERED: GLUCAGON FOR INJ 1 MG VIAL SQ PRN (21:12)
[2022-10-22] MEDS: MEROPENEM 500 MG in SYRINGE 0 ML IV SCH (22:32)
[2022-10-22] MEDS: INSULIN ASPART PER UNIT CHARGE SC SCH (22:32)
[2022-10-23] MEDS: LEVOTHYROXINE SODIUM 88 MCG TABLET PO SCH (04:57)
[2022-10-23] MEDS: HEPARIN SOD 5,000 UNIT/0.5 ML VIAL SQ SCH ×3 (04:57→20:12)
[2022-10-23] MEDS: MEROPENEM 500 MG in SYRINGE 0 ML IV SCH ×3 (06:06→22:11)
[2022-10-23 06:37] LABS: Basophils # (auto) 0.04 K/uL (0-0.2); Basophils % (auto) 0.7 %; Eosinophils # (auto) 0.08 K/uL (0-0.50); Eosinophils % (auto) 1.4 %; Hematocrit (blood only) 30.7 % (37.0-47.0); Hemoglobin 10.4 g/dl (12.0-16.0); Immature Granulocytes # (auto) 0.02 K/uL (0.01-0.20); Immature Granulocytes % (auto) 0.3 %; Lymphocytes # (auto) 1.47 K/uL (1.2-3.4); Mean Corpuscular Hgb Conc 33.9 g/dL (32.0-36.0); Mean Corpuscular Volume 109.3 fL (80.0-100.0); Mean Platelet Volume 9.7 fL (9.4-12.4); Monocytes # (auto) 0.65 K/uL (0.11-0.59); Neutrophils # (auto) 3.63 K/uL (1.40-6.50); Neutrophils % (auto) 61.6 %; Nucleated RBC # (auto) 0.02 K/uL (0-0.12); Nucleated RBC % (auto) 0.3 %; Platelet Count 262 K/uL (130-400); RDW Coefficient of Variation 13.1 % (11.5-14.5); RDW Standard Deviation 52.8 fL (36.4-46.3); Red Blood Count 2.81 M/uL (4.20-5.40); White Blood Count 5.89 K/ul (4.8-10.8)
[2022-10-23 06:58] LABS: BUN Creatinine Ratio 28.3 (10-20); Calcium 9.5 mg/dl (8.5-10.1); Creatinine Clr Calc Pharmacy 53.5 ml/min; Est GFR (African American) 59.4 ml/min; Est GFR (Non-African American) 51.2 ml/min; Magnesium 2.4 mg/dl (1.7-2.4); Potassium 4.1 mmol/L (3.5-5.1)
[2022-10-23] MEDS ORDERED: INSULIN ASPART PER UNIT CHARGE SC SCH (07:30)
[2022-10-23 08:14] LABS: Estimated Average Glucose 171 mg/dl; Hemoglobin A1C 7.6 % (4.5-5.6)
[2022-10-23] MEDS: METOPROLOL SUCC 25MG EXT REL TAB PO SCH (08:52)
[2022-10-23] MEDS: MULTIVITAMIN TAB PO SCH (08:52)
[2022-10-23] MEDS: POTASSIUM CHLORIDE CRTAB 20 MEQ TABCR PO SCH ×2 (08:52→20:13)
[2022-10-23] MEDS: MIRABEGRON ER 25 MG TAB PO SCH (08:52)
[2022-10-23] MEDS: MAGNESIUM OXIDE 400 MG TAB PO SCH (08:52)
[2022-10-23] MEDS: CHOLECALCIFEROL 1,000 UNITS 25 MCG TAB PO SCH (08:52)
[2022-10-23] MEDS: TORSEMIDE 20 MG TAB PO SCH (08:52)
[2022-10-23] MEDS: SPIRONOLACTONE 12.5 MG TAB PO SCH ×2 (08:52→20:13)
[2022-10-23] MEDS: PANTOprazole 40 MG TAB PO SCH (08:52)
[2022-10-23] MEDS: INSULIN ASPART PER UNIT CHARGE SC SCH ×4 (08:53→20:12)
--- NOTE | 2022-10-23 16:59 | Hospitalist Progress Note ---
Date of Service October 23, 2022 Assessment & Plan (1) UTI due to extended-spectrum beta lactamase (ESBL) producing Escherichia coli: (2) Hypoxia: (3) HTN (hypertension): (4) Diabetes mellitus, type II: (5) Aortic stenosis, moderate: (6) Lymphedema: Plan: (7) Hypothyroidism: (8) CHF (congestive heart failure): Plan: This is an 87-year-old female with PMH DM type II, recurrent UTIs, hypothy roidism, hyperlipidemia, CKD 3, chronic systolic congestive heart failure, exertional dyspnea, first-degree AV block, left bundle-branch block, CAD, hypertension, lymphedema of both lower extremities, aspirin allergy, history of moderate aortic stenosis, history of ischemic cardiomyopathy, status post biventricular cardiac pacemaker who presents with generalized weakness, near syncope and UTI. UTI due to extended-spectrum beta lactamase (ESBL) producing Escherichia coli Generalized weakness Urine culture from 10/11 growing ESBL E. coli Completed 5 day course of IV Ertapenem/meropenem Still having dysuria but significantly improved, already on mirabegron Lactic acidosis Initially 3.4 but improved to 1.1 after fluids Hypoxia Minimally present today, 86% on RA improved to 99 on 2L NC. Now weaned to room air Present on previous admission as well and resolved CXR and chest CTA unremarkable Would benefit from 2 step at time of dc Hypothyroidism Continue levothyroxine HTN (hypertension) Normotensive. Continue metoprolol, lisinopril with holding parameters Monitor BP Adjust medications as needed Chronic systolic heart failure Moderate aortic stenosis [place] to be dry in ED, received IV fluids in ED resume home diuretics S/p pacemaker placement DVT Ppx: SQ heparin Code status: DNR PCP: [facility] Dispo: Admit to med tele Admission and Anticipated Discharge Date Admission Date: October 22, 2022 Subjective No issues overnight Patient reports feeling like her legs are swollen and heavy Feels weak Physical Exam Physical Exam: Appears chronically ill, poor historian, no acute distress Respiratory: breathing comfortably on room air, no wheezing/rhonchi Cardiovascular: regular rate and rhythm, no murmurs/rubs Gastrointestinal (Abdomen): soft, non tender Musculoskeletal: Legs are large, non pitting edema (looks unchanged from yesterday, yesterday she reports it is "chronic", today is complaining that her legs are swollen) Results & Data Results & Data ([facility]) Vital Signs (Past 12 Hours) Vital Signs Temp Pulse Pulse Pulse Resp BP Pulse Ox 10/23/22 11:30 36.3 C L 78 16 106/60 92 10/23/22 11:11 36.4 C L 88 18 129/78 94 10/23/22 07:30 36.3 C L 72 16 122/74 92 10/23/22 08:09 77 10/23/22 05:04 36.6 C 77 18 130/63 92 O2 Del Method 10/23/22 11:30 Room Air 10/23/22 11:11 Room Air 10/23/22 07:30 Room Air 10/23/22 08:09 10/23/22 05:04 Room Air
[2022-10-23] MEDS: SENNA 8.6 MG TAB PO SCH (20:16)
[2022-10-24] MEDS: HEPARIN SOD 5,000 UNIT/0.5 ML VIAL SQ SCH ×3 (06:13→20:41)
[2022-10-24] MEDS: LEVOTHYROXINE SODIUM 88 MCG TABLET PO SCH (06:13)
[2022-10-24] MEDS: MEROPENEM 500 MG in SYRINGE 0 ML IV SCH (06:14)
[2022-10-24] MEDS: INSULIN ASPART PER UNIT CHARGE SC SCH ×4 (08:22→20:08)
[2022-10-24] MEDS: CHOLECALCIFEROL 1,000 UNITS 25 MCG TAB PO SCH (08:35)
[2022-10-24] MEDS: MIRABEGRON ER 25 MG TAB PO SCH (08:35)
[2022-10-24] MEDS: MULTIVITAMIN TAB PO SCH (08:35)
[2022-10-24] MEDS: PANTOprazole 40 MG TAB PO SCH (08:35)
[2022-10-24] MEDS: METOPROLOL SUCC 25MG EXT REL TAB PO SCH (08:35)
[2022-10-24] MEDS: MAGNESIUM OXIDE 400 MG TAB PO SCH (08:35)
[2022-10-24] MEDS: POTASSIUM CHLORIDE CRTAB 20 MEQ TABCR PO SCH ×2 (08:36→20:40)
[2022-10-24] MEDS: SPIRONOLACTONE 12.5 MG TAB PO SCH ×2 (08:36→20:40)
[2022-10-24] MEDS: TORSEMIDE 20 MG TAB PO SCH (08:36)
--- NOTE | 2022-10-24 09:58 | Ultrasound Report ---
BILATERAL LOWER EXTREMITY VENOUS DOPPLER HISTORY: Acute pain and swelling of the lower legs leg swelling. eval for DVT COMPARISON STUDY: Doppler study 02/04/2019 FINDINGS: There is normal compressibility, flow, and augmentation within the bilateral lower extremit y deep venous systems. Subcutaneous edema. IMPRESSION: No DVT within the right or left lower extremity. ACT 112: Negative or not required by law. Electronically signed by: Declan Sevilla M.D. 10/24/2022 9:56 AM
[2022-10-24] MEDS ORDERED: [UNRECOGNIZED DRUG - OTHER] EXT PRN (17:59)
--- NOTE | 2022-10-24 18:07 | Hospitalist Progress Note ---
Date of Service October 24, 2022 Assessment & Plan (1) UTI due to extended-spectrum beta lactamase (ESBL) producing Escherichia coli: (2) Hypoxia: (3) HTN (hypertension): (4) Diabetes mellitus, type II: (5) Aortic stenosis, moderate: (6) Lymphedema: Plan: (7) Hypothyroidism: (8) CHF (congestive heart failure): Plan: This is an 87-year-old female with PMH DM type II, recurrent UTIs, hypothy roidism, hyperlipidemia, CKD 3, chronic systolic congestive heart failure, exertional dyspnea, first-degree AV block, left bundle-branch block, CAD, hypertension, lymphedema of both lower extremities, aspirin allergy, history of moderate aortic stenosis, history of ischemic cardiomyopathy, status post biventricular cardiac pacemaker who presents with generalized weakness, near syncope and UTI. UTI due to extended-spectrum beta lactamase (ESBL) producing Escherichia coli Generalized weakness Urine culture from 10/11 growing ESBL E. coli Completed 5 day course of IV Ertapenem/meropenem Still having dysuria but significantly improved, already on mirabegron Repeat urine culture here negative for infection Lactic acidosis Initially 3.4 but improved to 1.1 after fluids Acute Hypoxia respiratory failure Possibly from obesity hypoventilation syndrome Minimal( 86% on RA) improved to 99 on 2L NC. Now weaned to room air Present on previous admission as well and resolved CXR and chest CTA unremarkable Hypothyroidism Continue levothyroxine HTN (hypertension) Normotensive. Continue metoprolol, lisinopril with holding parameters Monitor BP Adjust medications as needed Chronic systolic heart failure Moderate aortic stenosis [place] to be dry in ED, received IV fluids in ED home diuretics now resumved Chronic lymphedema LE u/s negative for DVT continue SCDs S/p pacemaker placement DVT Ppx: SQ heparin Code status: DNR PCP: [facility] Dispo: Discharge to rehab when bed available, likely tomorrow. Patient is medically stable for discharge. Admission and Anticipated Discharge Date Admission Date: October 22, 2022 Subjective No events overnight Daughter reports patient complaining of leg cramps, brought in her home stockings and pain cream Physical Exam Physical Exam: Laying in bed, pleasant and comfortable Respiratory: Breathing comfortably on room air, no wheezing/rhonchi/rales Cardiovascular: regular rate and rhythm, no murmurs/rubs/gallops Gastrointestinal (Abdomen): soft, non tender, non distended Musculoskeletal: chronic non pitting edema Neurologic: awake, alert, spontaneously moving extremities Results & Data Results & Data ([facility]) Vital Signs (Past 12 Hours) Vital Signs Temp Pulse Pulse Resp BP Pulse Ox O2 Del Method 10/24/22 16:54 73 10/24/22 15:27 36.7 C 73 18 121/71 92 Room Air 10/24/22 12:00 36.3 C L 71 18 113/67 91 Room Air 10/24/22 08:01 36.6 C 67 18 117/69 93 Room Air
[2022-10-24] MEDS: SENNA 8.6 MG TAB PO SCH (20:40)
[2022-10-25] MEDS: HEPARIN SOD 5,000 UNIT/0.5 ML VIAL SQ SCH ×2 (06:01→12:22)
[2022-10-25] MEDS: LEVOTHYROXINE SODIUM 88 MCG TABLET PO SCH (06:01)
[2022-10-25 07:42] LABS: BUN Creatinine Ratio 30.1 (10-20); Calcium 9.4 mg/dl (8.5-10.1); Creatinine Clr Calc Pharmacy 47.7 ml/min; Est GFR (African American) 50.6 ml/min; Est GFR (Non-African American) 43.7 ml/min; Magnesium 2.3 mg/dl (1.7-2.4)
[2022-10-25] MEDS: INSULIN ASPART PER UNIT CHARGE SC SCH ×2 (08:50→11:48)
[2022-10-25] MEDS: POTASSIUM CHLORIDE CRTAB 20 MEQ TABCR PO SCH (08:51)
[2022-10-25] MEDS: METOPROLOL SUCC 25MG EXT REL TAB PO SCH (08:52)
[2022-10-25] MEDS: SPIRONOLACTONE 12.5 MG TAB PO SCH (08:52)
[2022-10-25] MEDS: PANTOprazole 40 MG TAB PO SCH (08:52)
[2022-10-25] MEDS: CHOLECALCIFEROL 1,000 UNITS 25 MCG TAB PO SCH (08:53)
[2022-10-25] MEDS: MULTIVITAMIN TAB PO SCH (08:53)
[2022-10-25] MEDS: MAGNESIUM OXIDE 400 MG TAB PO SCH (08:53)
[2022-10-25] MEDS: TORSEMIDE 20 MG TAB PO SCH (08:53)
[2022-10-25] MEDS: MIRABEGRON ER 25 MG TAB PO SCH (08:53)
--- NOTE | 2022-10-25 14:51 | Discharge Summary ---
Date of Service October 25, 2022 Admission HPI Per Admitting Provider This is an 87-year-old female with PMH DM type II, recurrent UTIs, hypothyroidism, hyperlipidemia, CKD 3, chronic systolic congestive heart failure, exertional dyspnea, first-degree AV block, left bundle-branch block, CA D, hypertension, lymphedema of both lower extremities, aspirin allergy, history of moderate aortic stenosis, history of ischemic cardiomyopathy, status post biventricular cardiac pacemaker who presents with generalized weakness, near syncope and UTI. Lives at home with 24 hr care. Woke up feeling weak and legs gave out from underneath her but no loss of consciousness or head trauma. Nursing staff reportedly caught her in a chair. Patient is being treated for a UTI with outpatient urine culture from 10/11/22 growing ESBL e coli and was prescribed 5 day course of IV Ertapenem. Today would be last day. Urinary symptoms have improved but still feels weak. Only took levothyroxine and Protonix this morning. Denies any fever, chills, headache, CP, SOB, N/V, abdominal pain, hematuria, dysuria, diarrhea or constipation. Principal Diagnosis Debility Weakness Recent ESBL UTI Chronic lymphedema Discharge Exam Sitting in chair, no acute distress, pleasant and comfortable Respiratory Breathing comfortably, no wheezing/rhonchi/rales Cardiovascular regular rate and rhythm, no murmurs/rubs/gallops Gastrointestinal (Abdomen) soft, non tender Musculoskeletal chronic lymphedema Neurologic awake, alert, spontaneously moving extremities Discharge Data Allergies Allergy/AdvReac Type Severity Reaction Status Date / Time aspirin Allergy Intermediate Hives, Verified 05/12/21 02:24 shortness of breath ibuprofen Allergy Intermediate Rash, hives Verified 05/12/21 02:24 Penicillins Allergy Intermediate Rash, hives Verified 05/12/21 02:24 adhesive Allergy Mild Reddened Verified 05/12/21 02:24 and sore skin ciprofloxacin AdvReac Intermediate Weakness Verified 05/12/21 02:24 prednisone AdvReac Mild Confusion Verified 05/12/21 02:24 Consultations 10/22/22 16:15 ED Decision to Admit Stat 10/22/22 18:25 Consult Infectious Diseases Routine Ordered Studies 10/22/22 11:14 CT head/brain wo con Stat 10/22/22 13:52 CT angio chest PE protocol Stat 10/24/22 17:58 US venous doppler LE Routine Hospital Course (1) UTI due to extended-spectrum beta lactamase (ESBL) producing Escherichia coli: (2) Hypoxia: (3) HTN (hypertension): (4) Diabetes mellitus, type II: (5) Aortic stenosis, moderate: (6) Lymphedema: (7) Hypothyroidism: (8) CHF (congestive heart failure): Plan This is an 87-year-old female with PMH DM type II, recurrent UTIs, hypothyroidism, hyperlipidemia, CKD 3, chronic systolic congestive heart failure, exertional dyspnea, first-degree AV block, left bundle-branch block, CAD, hypertension, lymphedema of both lower extremities, aspirin allergy, history of moderate aortic stenosis, history of ischemic cardiomyopathy, status post biventricular cardiac pacemaker who presents with generalized weakness, near syncope and UTI. UTI due to extended-spectrum beta lactamase (ESBL) producing Escherichia coli Generalized weakness Outpatient urine culture from 10/11 growing ESBL E. coli and she was placed on ertapenem Finished 5 day course of treatment with meropenem while here Still having dysuria but significantly improved, already on mirabegron Repeat urine culture here negative for infection Lactic acidosis Initially 3.4 but improved to 1.1 after fluids Acute Hypoxia respiratory failure Possibly from obesity hypoventilation syndrome Minimal( 86% on RA) improved to 99 on 2L NC. Present on previous admission as well and resolved CXR and chest CTA unremarkable Will discharge on 2L NC to be used as needed. Would benefit from outpatient sleep study Hypothyroidism Continue levothyroxine HTN (hypertension) Normotensive. Continue metoprolol, lisinopril with holding parameters Chronic systolic heart failure Moderate aortic stenosis [place] to be dry in ED, received IV fluids in ED Home diuretics were continued here Euvolemic at discharge Chronic lymphedema LE u/s negative for DVT continue SCDs Patient evaluated by PT and recommended rehab. She was discharged to [place]. Total Time Total Time Spent Total Time Spent (In Minutes): 35 Discharge Plan Discharge Items Patient Disposition: Transfer [facility] Reason For Visit: UTI, WEAKNESS Discharge Diagnosis: Debility Weakness Recent ESBL UTI Chronic lymphadema Condition on Discharge: Good Activity: Resume your previous activity Non-emergency contact: Primary Care Provider Call non-emergency contact if: you have any medication questions and you have a fever Follow-up/Referrals: Verónica Benavides MD [Primary Care Provider] - Diet: Carb Consistent or DM2 and Heart Healthy Diet Texture: Easy to Chew Addtl Attending Provider Instructions: Please follow up with your primary care doctor after discharge You finished your antibiotic course in the hospital (5 days total) Ertapenem at home, Meropenem here Repeat urine culture negative for infection Intermittently requires oxygen. Would continue 2L NC as needed and wean as tolerated. Would recommend outpatient sleep study to assess for sleep apnea. No changes to home oxygen Pending Studies at Discharge: No Stand-Alone Forms: [facility] Skilled Items Patient informed of condition?: Yes DNR: Yes Discharge Level of Care: Acute rehab Communicable Disease: No Discharge Prognosis: Stable Lines: None Urinary Catheter: No Medications and DC Order Prescriptions: Continued omeprazole 20 mg capsule,delayed release(DR/EC) 20 mg PO DAILY Myrbetriq 25 mg tablet extended release 24 hr 25 mg PO DAILY d-mannose 500 mg Capsule 1,000 mg PO BID torsemide 20 mg tablet 60 mg PO QAM spironolactone [Aldactone] 25 mg tablet 12.5 mg PO BID sennosides [Senokot] 8.6 mg Tablet 8.6 mg PO HS Qty: 30 0RF acetaminophen [Tylenol Extra Strength] 500 mg Tablet 1,000 mg PO Q8H PRN (Reason: pain) Qty: 30 0RF cholecalciferol (vitamin D3) 25 mcg (1,000 unit) Capsule 1,000 unit PO QAM Qty: 30 0RF multivitamin Tablet 1 tab PO QAM Qty: 30 0RF levothyroxine 88 mcg tablet 88 mcg PO QAM Qty: 30 0RF potassium chloride 20 mEq Tablet,Er Particles/Crystals 20 meq PO BID Qty: 60 0RF Rx Instructions: PER PT'S DAUGHTER "HASN'T TAKE PM DOSE OF POTASSIUM FOR 3-4 DAYS". magnesium oxide 400 mg (241.3 mg magnesium) Tablet 400 mg PO QAM Qty: 30 0RF docusate sodium [Colace] 100 mg Capsule 300 mg PO DAILY PRN (Reason: Constipation) Qty: 30 0RF metoprolol succinate [Toprol XL] 25 mg Tablet Extended Release 24 Hr 12.5 mg PO QAM Qty: 30 0RF Glucosamine Chondroitin 550-30-1 mg Capsule 1 cap PO BID Qty: 60 0RF Rx Instructions: PER PT'S DAUGHTER "HASN'T TAKEN PM DOSE FOR 3-4 DAYS". Discharge Orders: Discharge Order (Routine); Ordered 10/25/22 Ordered By: Kayce Birch/Other Patient Handouts: Managing Type 2 Diabetes Admission Data Admit Date/Time: 10/22/22 16:46 Attending Provider: Kayce Richard Admit Provider: Kayce Richard Primary Care Provider: Verónica Benavides Other Providers: Kayce Richard ; Jose Alfredo Sesay ; Flavio Low ; Lobo Aranda I. ; Danilo Palacio II ; Marietta Amaya ; Chris Saha ; Smith Roman ; Jenn Tiwari ; Joanna Arias Other Interventions: Discharge Summary Assessment (RN) Last Done: 10/25/22 14:17
--- NOTE | 2022-10-30 14:05 | Coding Query ---
PRESENT ON ADMISSION QUERY To promote full compliance with coding requirements relating to pateint care, physician participation is requested in all cases of blade grinder uncertainty. Please assist us with the question(s) below: Please place an X within the parenthesis (x). The following diagnosis listed in this patient's medical record require physician assistance to determine if they were present on admission (POA) or not. Please advise for each diagnosis whether it was present on admission, not present on admission, or if it was clinically undetermined. 1. ACUTE HYPOXIA RESPIRATORY FAILURE - (regarding Acute Respiratory Failure that begins documentation on 10/24 Progress Note and Discharge Summary) (X ) Present On Admission ( ) Not Present On Admission ( ) Clinically Undetermined Thank you Abena Kessler *Definition of the present on admission (POA)-Present on admission is defined as present at the time the order for inpatient admission occurs. Conditions that develop during an outpatient encounter prior to a written order for inpatient admission (including emergency department, observation, or outpatient surgery) are considered present on admission. VETOD
--- NOTE | 2022-10-30 14:08 | Coding Query ---
To promote full compliance with coding requirements relating to patient care, provider participation is requested in all cases of assembler camper uncertainty. Please assist us with the question(s) below: Coding Question(s): The diagnosis below was documented in the ER H&P, then subsequently fell off all further documentation. Please indicate if it is still a possible diagnosis or ruled out. Physician's Response(s): SEPSIS - (the ER H&P documents regarding Sepsis, "It is unclear if the patient's lactic acidemia is secondary to her hypoxia or due to sepsis caused by a UTI") ( ) Diagnosed and POA ( ) Diagnosed and not POA (X ) Ruled out ( ) Other (please specify) MTDD
--- NOTE | 2022-10-30 14:13 | Coding Query ---
CODING QUERY To promote full compliance with coding requirements relating to patient care, provider participation is requested in all cases of internet sales consultant uncertainty. Please assist us with the question(s) below: Coding Question(s): UTI is documented through the record with documentation on the Discharge Summary Principal Diagnosis area of, "Recent ESBL UTI", and documentation on the Discharge Hospital Course of, "UTI due to extended-spectrum beta lactamase (ESBL) producing Escherichia coli:", and also, "UTI due to extended-spectrum beta lactamase (ESBL) producing Escherichia coli Generalized weakness Outpatient urine culture from 10/11 growing ESBL E. coli and she was placed on ertapenem Finished 5 day course of treatment with meropenem while here Still having dysuria but significantly improved, already on mirabegron Repeat urine culture here negative for infection", Please clarify below, in your clinical opinion, regarding UTI on this admission: ( ) Acute UTI was treated on this admission (X ) History only of recent UTI with No Acute UTI ( ) Other UTI: Please Specify Physician's Response(s): Thank you Abena Kessler Principal Diagnosis: "that condition established after study, to be chiefly responsible for occasioning the admission of the patient to the hospital for care." Co-Existing Principal Diagnosis: "when two or more diagnoses equally meet the criteria for principal diagnosis as determined by the circumstances of admission, diagnostic work up, and/or therapy provided, and the Alphabetic Index, Tabular List, or another coding guideline does not provide sequencing direction, any one of the diagnoses may be sequenced first." "When the physician has documented what appears to be a current diagnosis in the body of the record, but has not included the diagnosis in the final diagnostic statement, the physician should be asked whether the diagnosis should be added." ([facility] 2 QTR90. p3-4) HERNANDEZ
--- NOTE | 2022-12-04 14:29 | Coding Query ---
CODING QUERY To promote full compliance with coding requirements relating to patient care, provider participation is requested in all cases of machine loader uncertainty. Please assist us with the question(s) below: Coding Question(s): Your help is needed and appreciated in order to determine the diagnosis from the previous query that was answered with ( xx ) Other: Please Specify probable but not confirmed. Please specify below, the diagnosis that is probable but not confirmed: ( ) Probable but not confirmed Sepsis ( ) Probable but not confirmed Urosepsis with NO Sepsis ( ) Other: Please Specify Physician's Response(s): Thank you Abena Kessler Principal Diagnosis: "that condition established after study, to be chiefly responsible for occasioning the admission of the patient to the hospital for care." Co-Existing Principal Diagnosis: "when two or more diagnoses equally meet the criteria for principal diagnosis as determined by the circumstances of admission, diagnostic work up, and/or therapy provided, and the Alphabetic Index, Tabular List, or another coding guideline does not provide sequencing direction, any one of the diagnoses may be sequenced first." "When the physician has documented what appears to be a current diagnosis in the body of the record, but has not included the diagnosis in the final diagnostic statement, the physician should be asked whether the diagnosis should be added." ([facility] 2 QTR90. p3-4) HERNANDEZ
== END 2022-10-25 15:00 | DRG 189 ==
LOC: ED 10:56 → 2W 16:46

== ENCOUNTER 2023-03-20 17:43 | Inpatient (IN) ==
--- NOTE | 2023-03-20 17:52 | ED Triage Note ---
Date of Service March 20, 2023 History of Present Illness This patient was briefly evaluated while in triage. An abbreviated physical exam was performed. This patient is a 87-year-old Female who presents to the ED for evaluation of dizziness over the past few days. Presents via EMS. She lives at home. She feels dizzy with standing and movements. She feels like she is "drunk" but denies alcohol use. She denies any falls recently. No headache. She notes low back pain. Physical Exam GENERAL: 87 year old female. In no acute distress. SKIN: No lesions or rashes. HEART: Regular rate and rhythm. LUNGS: Clear to auscultation. NEURO: Alert and oriented. No deficits. MUSCULOSKELETAL: No deformities to inspection of the extremities. PSYCH: Patient is pleasant and answers all questions appropriately. Initial orders for labs and / or imaging were placed and patient was placed in the waiting area until a bed is available. Please see further documentation for the full ED course.
[2023-03-20 19:22] LABS: Basophils # (auto) 0.03 K/uL (0-0.2); Basophils % (auto) 0.4 %; Eosinophils # (auto) 0.11 K/uL (0-0.50); Eosinophils % (auto) 1.6 %; Hematocrit (blood only) 36.2 % (37.0-47.0); Hemoglobin 12.3 g/dl (12.0-16.0); Immature Granulocytes # (auto) 0.03 K/uL (0.01-0.20); Immature Granulocytes % (auto) 0.4 %; Lymphocytes # (auto) 2.95 K/uL (1.2-3.4); Lymphocytes % (auto) 43.8 %; Mean Corpuscular Hemoglobin 37.4 pg (25.0-34.0); Mean Platelet Volume 9.6 fL (9.4-12.4); Monocytes # (auto) 0.68 K/uL (0.11-0.59); Monocytes % (auto) 10.1 %; Neutrophils # (auto) 2.93 K/uL (1.40-6.50); Neutrophils % (auto) 43.7 %; Nucleated RBC # (auto) 0.02 K/uL (0-0.12); Nucleated RBC % (auto) 0.3 %; Platelet Count 362 K/uL (130-400); RDW Coefficient of Variation 13.6 % (11.5-14.5); RDW Standard Deviation 55.3 fL (36.4-46.3); Red Blood Count 3.29 M/uL (4.20-5.40); White Blood Count 6.73 K/ul (4.8-10.8)
[2023-03-20 19:38] LABS: Alanine Aminotransferase 11 U/L (7-52); Albumin Globulin Ratio 1.2 (0.9-2); Albumin Level 4.3 gm/dl (3.4-5.0); Alkaline Phosphatase 92 U/L (34-104); Anion Gap 9 (3-11); Aspartate Aminotransferase 15 U/L (13-39); BUN Creatinine Ratio 23.4 (10-20); Bilirubin,Total 0.5 mg/dl (0.2-1.0); Blood Urea Nitrogen 25 mg/dl (6-23); Calcium 10.1 mg/dl (8.6-10.3); Carbon Dioxide 29 mmol/L (21-32); Chloride 99 mmol/L (98-107); Est GFR (African American) 54.1 ml/min; Est GFR (Non-African American) 46.6 ml/min; Globulin 3.6 gm/dl (2.5-4.0); Glucose 154 mg/dl (70-99(Fasting)); Potassium 3.7 mmol/L (3.5-5.1); Sodium 137 mmol/L (136-145); Total Protein 7.9 gm/dl (6.0-8.3)
[2023-03-20 19:44] LABS: Troponin I High Sensitivity 9.4 pg/ml (0-14)
[2023-03-20 19:47] LABS: Partial Thromboplastin Ratio 0.9; Partial Thromboplastin Time 25.6 Seconds (21.0-31.0); Prothrombin Time 10.9 Seconds (9.0-12.0)
[2023-03-20 19:54] LABS: Thyroid Stimulating Hormone 3.491 uIu/ml (0.300-4.500)
[2023-03-20] MEDS ORDERED: MECLIZINE 12.5 MG TAB PO STA (21:54)
--- NOTE | 2023-03-20 23:26 | CT Scan Report ---
Exam(s): CT HEAD Without Contrast EXAM: CT Head Without Intravenous Contrast CLINICAL HISTORY: Reason for exam: Dizziness. TECHNIQUE: Axial computed tomography images of the head/brain without intravenous contrast. CTDI is 36.79 mGy and DLP is 546.36 mGy-cm. Automated exposure control was utilized for the study. A dose lowering technique was utilized adhering to the principles of ALARA. COMPARISON: Head CT 10/22/2022 FINDINGS: Brain: No hemorrhage, extra-axial fluid collection, mass effect, or edema. Chronic microvascular ischemic changes and mild atrophy. Ventricles: Unremarkable. Bones/joints: Unremarkable. No fracture. Soft tissues: Unremarkable. Sinuses: No acute sinusitis. Mastoid air cells: Unremarkable as visualized. IMPRESSION: 1. No acute intracranial abnormality. Electronically signed by: Carlos Crane MD 03/20/23 23:25 PM
[2023-03-20 23:29] LABS: Appearance Urine Cloudy (Clear); Bilirubin Urine Negative (Negative); Blood Urine Negative (Negative); Color Urine Yellow; Glucose Urine UA Negative (Negative); Ketones Urine Negative (Negative); Leukocyte Esterase Urine 1+ (Negative); Nitrite Urine Negative (Negative); Protein Urine Negative (Negative); Specific Gravity Urine 1.011 (1.000-1.030); Urobilinogen Urine Negative (Negative)
[2023-03-20 23:30] LABS: Bacteria Urine Automated 1+ (Negative); Epithelial Cell Urine Auto >30 /lpf (0-5); RBC Urine Automated 0-4 /hpf (0-4)
--- NOTE | 2023-03-21 02:13 | History & Physical Report ---
Date of Service March 21, 2023 Assessment & Plan (1) Dizziness: Plan: This is an 87-year-old female with PMH DM type II, recurrent UTIs, hypothyroidism, hyperlipidemia, CKD 3, chronic systolic congestive heart failure, exertional dyspnea, first-degree AV block, left bundle-branch block, CAD, hypertension, lymphedema of both lower extremities, aspirin allergy,history of benign positional vertigo, history of moderate aortic stenosis, history of ischemic cardiomyopathy, status post biventricular cardiac pacemaker who presents dizziness. Dizziness History of benign positional vertigo Says going on for last 1 week got worse lately Lying down is okay but when she ambulating she feels out of dizzy In the ER improved with meclizine but having difficulty ambulation because of the dizziness. We will observe in the hospital Meclizine as needed PT OT evaluation Questionable UTI History of recurrent UTIs Was treated with Invanz for ESBL in the past UA is positive Seen by urology by telemedicine in February 26, 2023 Urology recommends try to avoid antibiotics if possible most likely bacteriuria Currently does not have any symptoms On Myrbetriq Will monitor Diabetes On insulin sliding scale will follow blood sugars Chronic systolic CHF EF 50% on echo in November 2022 Moderate aortic stenosis Lower extremity lymphedema Continue her home diuretics Hypertension On metoprolol and diuretics We will monitor DVT prophylaxis Heparin subcu Disposition observation medical floor Full code only if there is chance of recovery as per discussion with the patient History of Present Illness Chief Complaint: Dizziness Primary Care Provider: Verónica Benavides MD This is an 87-year-old female with PMH DM type II, recurrent UTIs, hypothyroidism, hyperlipidemia, CKD 3, chronic systolic congestive heart failure, exertional dyspnea, first-degree AV block, left bundle-branch block, CAD, hypertension, lymphedema of both lower extremities, aspirin allergy,history of benign positional vertigo, history of moderate aortic stenosis, history of ischemic cardiomyopathy, status post biventricular cardiac pacemaker who presents dizziness. Patient states this started 1 week ago but got progressively worse. Lying down she is okay when when she ambulates she is feeling very dizzy. She ambulates with a walker. She lives alone at home but she has 24 hours care. Daughter lives close by. Denies any fevers. No nausea. No headaches. Vision is okay. Denies any earaches. No runny nose. No sore throat. Has some cough. Appetite is okay. Swallows okay as per patient. No chest pain. Says he is always short of breath. No abdominal pain. No burning micturition. Normal bowel movements. Currently resting comfortably and hemodynamically stable. In the ER with the meclizine dizziness improved but but she had issues with ambulation. Allergies Allergy/AdvReac Type Severity Reaction Status Date / Time aspirin Allergy Intermediate Hives, Verified 05/12/21 02:24 shortness of breath ibuprofen Allergy Intermediate Rash, hives Verified 05/12/21 02:24 Penicillins Allergy Intermediate Rash, hives Verified 05/12/21 02:24 adhesive Allergy Mild Reddened Verified 05/12/21 02:24 and sore skin ciprofloxacin AdvReac Intermediate Weakness Verified 05/12/21 02:24 prednisone AdvReac Mild Confusion Verified 05/12/21 02:24 Home Medications Medication Instructions Recorded Confirmed Type d-mannose 500 mg capsule 1,000 mg PO AMPM 10/22/22 03/21/23 History mirabegron 25 mg tablet,extended 25 mg PO QAM 10/22/22 03/21/23 History release 24 hr (Myrbetriq) omeprazole 20 mg capsule,delayed 20 mg PO DAILYBB 10/22/22 03/21/23 History release spironolactone 25 mg tablet 12.5 mg PO QAM 10/22/22 03/21/23 History (Aldactone) torsemide 20 mg tablet 60 mg PO QAM 10/22/22 03/21/23 History Lactobacillus acidophilus 10 10,000 mmu cells PO QAM 03/21/23 03/21/23 History billion cell capsule (Probiotic) acetaminophen 500 mg tablet 1,000 mg PO HS PRN leg cramps 03/21/23 03/21/23 History bisacodyl 5 mg tablet,delayed 10 mg PO DAILY PRN Constipation 03/21/23 03/21/23 History release (Dulcolax (bisacodyl)) cholecalciferol (vitamin D3) 25 1,000 unit PO .DAILY AT 2PM 03/21/23 03/21/23 History mcg (1,000 unit) capsule clotrimazole 1 % topical cream 1 applic topical BID PRN affected 03/21/23 03/21/23 History area colchicine 0.6 mg tablet 0.6 mg PO BID PRN gout attacks 03/21/23 03/21/23 History cyanocobalamin (vitamin B-12) 1,000 mcg PO .DAILY @ 2PM 03/21/23 03/21/23 History 1,000 mcg tablet (Vitamin B-12) dulaglutide 0.75 mg/0.5 mL 0.75 mg subcut WK 03/21/23 03/21/23 History subcutaneous pen injector (Trulicity) glucosamine-chondroitin 500 mg-400 1 tab PO AMPM 03/21/23 03/21/23 History mg tablet levothyroxine 88 mcg tablet 88 mcg PO DAILYBB 03/21/23 03/21/23 History magnesium oxide 400 mg (241.3 mg 400 mg PO .@ 2PM 03/21/23 03/21/23 History magnesium) tablet meclizine 25 mg tablet 25 mg PO TID PRN Dizziness 03/21/23 03/21/23 History methenamine hippurate 1 gram tablet 1 g PO HS 03/21/23 03/21/23 History metoprolol succinate 25 mg 12.5 mg PO QPM 03/21/23 03/21/23 History tablet,extended release 24 hr (Toprol XL) potassium chloride 20 mEq 20 meq PO AMHS 03/21/23 03/21/23 History tablet,extended release(part/cryst) promethazine-DM 6.25 mg-15 mg/5 mL 5 ml PO QID PRN persistant cough 03/21/23 03/21/23 History oral syrup quinine-vitamin E capsule 3 cap PO HS PRN leg cramps 03/21/23 03/21/23 History sennosides 8.6 mg-docusate sodium 12 tab-cap PO BID 03/21/23 03/21/23 History 50 mg tablet (Stool Softener-Laxative) Past Med/Surg History Medical History Acute UTI Arthritis CHF (congestive heart failure) Diabetes mellitus, type II History of recurrent UTIs Hypothyroidism Hypoxia Lactic acidemia LBBB (left bundle branch block) Lymphedema NICM (nonischemic cardiomyopathy) Pacemaker Pneumonia Systolic heart failure UTI due to extended-spectrum beta lactamase (ESBL) producing Escherichia coli Vertigo Surgical History History of hysterectomy History of knee replacement, total Hx of cholecystectomy Family History Other Diabetes Heart disease Hypertension Social History Smoking Status: Never smoker Second Hand Exposure: No; Do You Dip or Chew Tobacco: No; Hx Alcohol Use: No Hx Substance Use: No Preferred Language: Amharic Communication Ability: Effective Floor Layer Required: No Beliefs That Will Affect Care: None marital status: / Current Living Situation: Alone Current Living Situation Comment: has 17/03 help at home current occupational status: retired How many Children do You have: 1 Feels Safe at Home: Yes Assistive Devices: Lift Chair, Stair Lift and Walker Review of Systems Review of Systems: All systems reviewed & are unremarkable except as noted in Subjective Physical Exam Physical Exam: General- Not in distress Head- atraumatic Eyes- PERRL ENT- oropharynx clear Neck- supple, no JVD, Lungs- clear to auscultation and percussion, no added sounds Heart- regular rate and rhythm; no murmur, no gallop. Abdomen- normal bowel sounds, soft, nontender, no distension Extremities- chronic lymphedema Neuro- alert, oriented x 3; PERRL no facial palsy; no dysarthria obeys commands, moves extremities Skin- warm & dry Results & Data Results & Data Vital Signs (Past 12 Hours) Vital Signs Temp Pulse Pulse Resp BP BP Pulse Ox 03/21/23 01:30 73 18 122/66 94 03/21/23 00:33 69 18 121/71 93 03/20/23 23:09 78 03/20/23 23:35 03/20/23 23:34 96 03/20/23 23:33 70 18 126/61 96 03/20/23 17:49 36.1 C L 76 18 112/60 97 O2 Del Method 03/21/23 01:30 Room Air 03/21/23 00:33 Room Air 03/20/23 23:09 03/20/23 23:35 Room Air 03/20/23 23:34 Room Air 03/20/23 23:33 Room Air 03/20/23 17:49 Room Air Diagnostic Findings Laboratory Results WBC 6.73 K/ul (4.8-10.8) 03/20/23 18:52 RBC 3.29 M/uL (4.20-5.40) L 03/20/23 18:52 Hgb 12.3 g/dl (12.0-16.0) 03/20/23 18:52 Hct 36.2 % (37.0-47.0) L 03/20/23 18:52 MCV 110.0 fL (80.0-100.0) H 03/20/23 18:52 MCH 37.4 pg (25.0-34.0) H 03/20/23 18:52 MCHC 34.0 g/dL (32.0-36.0) 03/20/23 18:52 RDW Std Deviation 55.3 fL (36.4-46.3) H 03/20/23 18:52 RDW Coeff of Jon 13.6 % (11.5-14.5) 03/20/23 18:52 Plt Count 362 K/uL (130-400) 03/20/23 18:52 MPV 9.6 fL (9.4-12.4) 03/20/23 18:52 Immature Gran % (Auto) 0.4 % 03/20/23 18:52 Neut % (Auto) 43.7 % 03/20/23 18:52 Lymph % (Auto) 43.8 % 03/20/23 18:52 [place] % (Auto) 10.1 % 03/20/23 18:52 Eos % (Auto) 1.6 % 03/20/23 18:52 Baso % (Auto) 0.4 % 03/20/23 18:52 Neut # (Auto) 2.93 K/uL (1.40-6.50) 03/20/23 18:52 Lymph # (Auto) 2.95 K/uL (1.2-3.4) 03/20/23 18:52 [place] # (Auto) 0.68 K/uL (0.11-0.59) H 03/20/23 18:52 Eos # (Auto) 0.11 K/uL (0-0.50) 03/20/23 18:52 Baso # (Auto) 0.03 K/uL (0-0.2) 03/20/23 18:52 Immature Gran # (Auto) 0.03 K/uL (0.01-0.20) 03/20/23 18:52 Absolute Nucleated RBC 0.02 K/uL (0-0.12) 03/20/23 18:52 Nucleated RBC % (auto) 0.3 % 03/20/23 18:52 PT 10.9 Seconds (9.0-12.0) 03/20/23 18:52 INR 1.0 (0.9-1.1) 03/20/23 18:52 APTT 25.6 Seconds (21.0-31.0) 03/20/23 18:52 PTT Ratio 0.9 03/20/23 18:52 Sodium 137 mmol/L (136-145) 03/20/23 18:52 Potassium 3.7 mmol/L (3.5-5.1) 03/20/23 18:52 Chloride 99 mmol/L (98-107) 03/20/23 18:52 Carbon Dioxide 29 mmol/L (21-32) 03/20/23 18:52 Anion Gap 9 (3-11) 03/20/23 18:52 BUN 25 mg/dl (6-23) H 03/20/23 18:52 Creatinine 1.07 mg/dl (0.6-1.2) 03/20/23 18:52 Est Cr Clr Drug Dosing Not Reportable 03/20/23 18:52 Est GFR ( Amer) 54.1 ml/min 03/20/23 18:52 Est GFR (Non-Af Amer) 46.6 ml/min 03/20/23 18:52 BUN/Creatinine Ratio 23.4 (10-20) H 03/20/23 18:52 Glucose 154 mg/dl (70-99(Fasting)) H 03/20/23 18:52 Calcium 10.1 mg/dl (8.6-10.3) 03/20/23 18:52 Magnesium 2.0 mg/dl (1.7-2.4) 03/20/23 18:52 Total Bilirubin 0.5 mg/dl (0.2-1.0) 03/20/23 18:52 AST 15 U/L (13-39) 03/20/23 18:52 ALT 11 U/L (7-52) 03/20/23 18:52 Alkaline Phosphatase 92 U/L (34-104) 03/20/23 18:52 Troponin I High Sens 9.4 pg/ml (0-14) 03/20/23 18:52 Total Protein 7.9 gm/dl (6.0-8.3) 03/20/23 18:52 Albumin 4.3 gm/dl (3.4-5.0) 03/20/23 18:52 Globulin 3.6 gm/dl (2.5-4.0) 03/20/23 18:52 Albumin/Globulin Ratio 1.2 (0.9-2) 03/20/23 18:52 TSH 3.491 uIu/ml (0.300-4.500) 03/20/23 18:52 Urine Color Yellow 03/20/23 23:00 Urine Appearance Cloudy (Clear) A 03/20/23 23:00 Urine pH 7.0 (4.5-7.5) 03/20/23 23:00 Ur Specific [place] 1.011 (1.000-1.030) 03/20/23 23:00 Urine Protein Negative (Negative) 03/20/23 23:00 Urine Glucose (UA) Negative (Negative) 03/20/23 23:00 Urine Ketones Negative (Negative) 03/20/23 23:00 Urine Blood Negative (Negative) 03/20/23 23:00 Urine Nitrite Negative (Negative) 03/20/23 23:00 Urine Bilirubin Negative (Negative) 03/20/23 23:00 Urine Urobilinogen Negative (Negative) 03/20/23 23:00 Ur Leukocyte Esterase 1+ (Negative) H 03/20/23 23:00 Urine WBC (Auto) 10-30 /hpf (0-5) H 03/20/23 23:00 Urine RBC (Auto) 0-4 /hpf (0-4) 03/20/23 23:00 U Hyaline Cast (Auto) 1-5 /lpf (0-5) 03/20/23 23:00 U Epithel Cells (Auto) >30 /lpf (0-5) H 03/20/23 23:00 Urine Bacteria (Auto) 1+ (Negative) H 03/20/23 23:00 Urine Yeast Present (None Prsent) A 03/20/23 23:[address] 07/27/23 17:52 Exam(s): CT HEAD Without Contrast EXAM: CT Head Without Intravenous Contrast CLINICAL HISTORY: Reason for exam: Dizziness. TECHNIQUE: Axial computed tomography images of the head/brain without intravenous contrast. CTDI is 36.79 mGy and DLP is 546.36 mGy-cm. Automated exposure control was utilized for the study. A dose lowering technique was utilized adhering to the principles of ALARA. COMPARISON: Head CT 10/22/2022 FINDINGS: Brain: No hemorrhage, extra-axial fluid collection, mass effect, or edema. Chronic microvascular ischemic changes and mild atrophy. Ventricles: Unremarkable. Bones/joints: Unremarkable. No fracture. Soft tissues: Unremarkable. Sinuses: No acute sinusitis. Mastoid air cells: Unremarkable as visualized. IMPRESSION: 1. No acute intracranial abnormality. Electronically signed by: Carlos Crane MD 03/20/23 23:25 PM ECG Additional Comments: ECG atrial sensed ventricular paced rhythm at rate of 79 Code Status & VTE Plan VTE Prophylaxis Plan VTE Prophylaxis will be ordered: Yes
--- NOTE | 2023-03-21 02:45 | Emergency Department Note ---
Impression & Plan Vertigo, Pacemaker ED Provider Note CHIEF COMPLAINT: Dizziness HISTORY OF PRESENT ILLNESS: This 87-year-old female patient with past medical history of morbid obesity, congestive heart failure, hypertension, diabetes mellitus, aortic stenosis, chronic lymphedema, pacemaker placement, hypothy roidism and knee replacement presents to the emergency department with complaints of dizziness. She states she feels as though the room is spinning. This does happen to her occasionally. Her daughter has given her 2 doses of meclizine prior to arrival. They also note that she is currently taking fosfomycin for UTI and follows with urology. She had a dose several days ago and then again today. She denies any fevers, abdominal pain, vomiting or diarrhea. She has not had any falls with head injuries recently. REVIEW OF SYSTEMS: A review of systems was performed with positives and pertine nt negatives listed in the history of present illness. 10 systems were reviewed and are otherwise negative. ALLERGIES: see below MEDICATIONS: see below PMH: see below SOCIAL HISTORY: see below DDx: Benign positional vertigo, dehydration, hypovolemia, anemia, tumor, infection, hypoglycemia, electrolyte abnormalities, cardiac sources, intracerebral event, toxicologic, neurologic, as well as other pathologies. PHYSICAL EXAM: Vital signs reviewed. General:87 yo female patient, in no significant distress. HEENT: No scleral icterus, PERRLA, neck supple. Atraumatic. Minimal horizontal nystagmus Cardiovascular: Regular rate and rhythm, systolic ejection murmur Pulmonary: Clear to auscultation bilaterally, normal work of breathing. Abdomen: Soft, obese, nontender, nondistended, positive bowel sounds. Musculoskeletal: Atraumatic, positive peripheral edema. Neurologic: Patient awake alert and oriented x 3, speech is clear Skin: Warm, dry, no rash EMERGENCY DEPARTMENT COURSE/MDM: This patient was evaluated and appeared to be in no significant distress. External medical records were reviewed. IV access was obtained and laboratory work was drawn. The patient was placed on the library monitor and noted to be in a paced rhythm. Head CT was performed and reveals no evidence of acute abnormality. The patient had been given meclizine at home but was given an additional 12.5 mg in the ER. Laboratory work is fairly reassuring, UA is contaminated and will be sent for culture. Patient was not feeling much improved on my reevaluation. Her case was discussed with the hospitalist service for admission and further management at the request of her daughter. She did not feel safe taking the patient home. MONITORING: An order for cardiac monitoring was placed and the patient is noted to be in a AV sequential paced rhythm at 70 at beats per minute. RADIOLOGY: Chest x-ray to my interpretation reveals pacemaker in place, cardiomegaly without congestive change. Otherwise defer to radiology. Head CT to my review reveals no evidence of acute intracranial abnormality, o therwise refer to radiology. EKG: To my interpretation reveals an atrially sensed and ventricularly paced rhythm at 79 bpm. No PVC, no PAC. Normal ST segments. QTc is 538. DISPOSITION: Admission Past Med/Surg History Medical History (Updated 03/23/23 @ 21:20 by Razia Chambers MD) Acute on chronic heart failure with preserved ejection fraction (HFpEF) Acute UTI Arthritis CHF (congestive heart failure) Diabetes mellitus, type II History of recurrent UTIs Hypothyroidism Hypoxia Lactic acidemia LBBB (left bundle branch block) Lymphedema NICM (nonischemic cardiomyopathy) Pacemaker Pneumonia Systolic heart failure UTI due to extended-spectrum beta lactamase (ESBL) producing Escherichia coli Vertigo Surgical History History of hysterectomy History of knee replacement, total Hx of cholecystectomy Family History Other Diabetes Heart disease Hypertension Social History Smoking Status: Never smoker Second Hand Exposure: No; Do You Dip or Chew Tobacco: No; Tobacco Cessation Education Requested by Patient: No Hx Alcohol Use: No Hx Substance Use: No Preferred Language: Irish Communication Ability: Effective 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 Beliefs That Will Affect Care: None marital status: / Current Living Situation: Alone Current Living Situation Comment: has 17/03 help at home current occupational status: retired How many Children do You have: 1 Other Information That Helps Us Care for You: No Feels Safe at Home: Yes Safety Concerns: Feels Safe At This Time Assistive Devices: Lift Chair and Other Allergies Allergies Allergy/AdvReac Type Severity Reaction Status Date / Time aspirin Allergy Intermediate Hives, Verified 05/12/21 02:24 shortness of breath ibuprofen Allergy Intermediate Rash, hives Verified 05/12/21 02:24 Penicillins Allergy Intermediate Rash, hives Verified 05/12/21 02:24 adhesive Allergy Mild Reddened Verified 05/12/21 02:24 and sore skin ciprofloxacin AdvReac Intermediate Weakness Verified 05/12/21 02:24 prednisone AdvReac Mild Confusion Verified 05/12/21 02:24 Home Meds Home Medications Medication Instructions Recorded Confirmed d-mannose 500 mg capsule 1,000 mg PO AMPM 10/22/22 03/21/23 mirabegron 25 mg tablet,extended 25 mg PO QAM 10/22/22 03/21/23 release 24 hr (Myrbetriq) omeprazole 20 mg capsule,delayed 20 mg PO DAILYBB 10/22/22 03/21/23 release spironolactone 25 mg tablet 12.5 mg PO QAM 10/22/22 03/21/23 (Aldactone) torsemide 20 mg tablet 60 mg PO QAM 10/22/22 03/21/23 Lactobacillus acidophilus 10 10,000 mmu cells PO QAM 03/21/23 03/21/23 billion cell capsule (Probiotic) acetaminophen 500 mg tablet 1,000 mg PO HS PRN leg cramps 03/21/23 03/21/23 bisacodyl 5 mg tablet,delayed 10 mg PO DAILY PRN Constipation 03/21/23 03/21/23 release (Dulcolax (bisacodyl)) cholecalciferol (vitamin D3) 25 1,000 unit PO .DAILY AT 2PM 03/21/23 03/21/23 mcg (1,000 unit) capsule clotrimazole 1 % topical cream 1 applic topical BID PRN affected 03/21/23 03/21/23 area colchicine 0.6 mg tablet 0.6 mg PO BID PRN gout attacks 03/21/23 03/21/23 cyanocobalamin (vitamin B-12) 1,000 mcg PO .DAILY @ 2PM 03/21/23 03/21/23 1,000 mcg tablet (Vitamin B-12) dulaglutide 0.75 mg/0.5 mL 0.75 mg subcut WK 03/21/23 03/21/23 subcutaneous pen injector (Trulicity) glucosamine-chondroitin 500 mg-400 1 tab PO AMPM 03/21/23 03/21/23 mg tablet levothyroxine 88 mcg tablet 88 mcg PO DAILYBB 03/21/23 03/21/23 magnesium oxide 400 mg (241.3 mg 400 mg PO .@ 2PM 03/21/23 03/21/23 magnesium) tablet meclizine 25 mg tablet 25 mg PO TID PRN Dizziness 03/21/23 03/21/23 methenamine hippurate 1 gram tablet 1 g PO HS 03/21/23 03/21/23 metoprolol succinate 25 mg 12.5 mg PO QPM 03/21/23 03/21/23 tablet,extended release 24 hr (Toprol XL) potassium chloride 20 mEq 20 meq PO AMHS 03/21/23 03/21/23 tablet,extended release(part/cryst) promethazine-DM 6.25 mg-15 mg/5 mL 5 ml PO QID PRN persistant cough 03/21/23 03/21/23 oral syrup quinine-vitamin E capsule 3 cap PO HS PRN leg cramps 03/21/23 03/21/23 sennosides 8.6 mg-docusate sodium 1 tab-cap PO BID 03/21/23 03/21/23 50 mg tablet (Stool Softener-Laxative) Results & Data (ED) Vital Signs Vital Signs - 24 hr 03/20/23 17:49 03/20/23 23:33 03/20/23 23:34 Temperature 36.1 C L Temperature Source Temporal Artery Scan Pulse Rate 76 Pulse Rate [Apical] 70 Respiratory Rate 18 18 Respiratory Effort / Characteristics Non-Labored Respiratory Depth Normal Blood Pressure 112/60 Blood Pressure [Right Arm] 126/61 Blood Pressure Mean 77 Blood Pressure Mean [Right Arm] 82 Pulse Oximetry 97 96 96 Oxygen Delivery Method Room Air Room Air Room Air Sepsis Recent Fever Within 48 Hours No Sepsis New/Unexplained Change in Mental Status No Sepsis Action Taken by Nursing No Action Required 03/20/23 23:35 03/20/23 23:09 03/21/23 00:33 Temperature Temperature Source Pulse Rate 78 Pulse Rate [Apical] 69 Respiratory Rate 18 Respiratory Effort / Characteristics Respiratory Depth Blood Pressure Blood Pressure [Right Arm] 121/71 Blood Pressure Mean Blood Pressure Mean [Right Arm] 87 Pulse Oximetry 93 Oxygen Delivery Method Room Air Room Air Sepsis Recent Fever Within 48 Hours Sepsis New/Unexplained Change in Mental Status Sepsis Action Taken by Nursing 03/21/23 01:30 03/21/23 02:39 Temperature Temperature Source Pulse Rate Pulse Rate [Apical] 73 69 Respiratory Rate 18 18 Respiratory Effort / Characteristics Respiratory Depth Blood Pressure Blood Pressure [Right Arm] 122/66 112/50 L Blood Pressure Mean Blood Pressure Mean [Right Arm] 84 70 Pulse Oximetry 94 98 Oxygen Delivery Method Room Air Room Air Sepsis Recent Fever Within 48 Hours Sepsis New/Unexplained Change in Mental Status Sepsis Action Taken by Jail Medications Current Medication List: was personally reviewed by me Laboratory Data Attestation: I reviewed the patient's lab results. 03/20/23 18:52 03/20/23 18:52 Lab Results 03/20/23 03/20/23 03/20/23 Range/Units 18:52 18:52 18:52 WBC 6.73 (4.8-10.8) K/ul RBC 3.29 L (4.20-5.40) M/uL Hgb 12.3 (12.0-16.0) g/dl Hct 36.2 L (37.0-47.0) % MCV 110.0 H (80.0-100.0) fL MCH 37.4 H (25.0-34.0) pg MCHC 34.0 (32.0-36.0) g/dL RDW Std Deviation 55.3 H (36.4-46.3) fL RDW Coeff of Jon 13.6 (11.5-14.5) % Plt Count 362 (130-400) K/uL MPV 9.6 (9.4-12.4) fL Immature Gran % (Auto) 0.4 % Neut % (Auto) 43.7 % Lymph % (Auto) 43.8 % Bremer % (Auto) 10.1 % Eos % (Auto) 1.6 % Baso % (Auto) 0.4 % Neut # (Auto) 2.93 (1.40-6.50) K/uL Lymph # (Auto) 2.95 (1.2-3.4) K/uL Bremer # (Auto) 0.68 H (0.11-0.59) K/uL Eos # (Auto) 0.11 (0-0.50) K/uL Baso # (Auto) 0.03 (0-0.2) K/uL Immature Gran # (Auto) 0.03 (0.01-0.20) K/uL Absolute Nucleated RBC 0.02 (0-0.12) K/uL Nucleated RBC % (auto) 0.3 % PT 10.9 (9.0-12.0) Seconds INR 1.0 (0.9-1.1) APTT 25.6 (21.0-31.0) Seconds PTT Ratio 0.9 Sodium 137 (136-145) mmol/L Potassium 3.7 (3.5-5.1) mmol/L Chloride 99 (98-107) mmol/L Carbon Dioxide 29 (21-32) mmol/L Anion Gap 9 (3-11) BUN 25 H (6-23) mg/dl Creatinine 1.07 (0.6-1.2) mg/dl Est Cr Clr Drug Dosing Not Reportable Est GFR ( Amer) 54.1 ml/min Est GFR (Non-Af Amer) 46.6 ml/min BUN/Creatinine Ratio 23.4 H (10-20) Glucose 154 H (70-99(Fasting)) mg/dl POC Glucose (70-99) mg/dl Estimat Average Glucose mg/dl Hemoglobin A1c (4.5-5.6) % Calcium 10.1 (8.6-10.3) mg/dl Magnesium 2.0 (1.7-2.4) mg/dl Total Bilirubin 0.5 (0.2-1.0) mg/dl AST 15 (13-39) U/L ALT 11 (7-52) U/L Alkaline Phosphatase 92 (34-104) U/L Troponin I High Sens 9.4 (0-14) pg/ml Total Protein 7.9 (6.0-8.3) gm/dl Albumin 4.3 (3.4-5.0) gm/dl Globulin 3.6 (2.5-4.0) gm/dl Albumin/Globulin Ratio 1.2 (0.9-2) TSH 3.491 (0.300-4.500) uIu/ml Urine Color Urine Appearance (Clear) Urine pH (4.5-7.5) Ur Specific [place] (1.000-1.030) Urine Protein (Negative) Urine Glucose (UA) (Negative) Urine Ketones (Negative) Urine Blood (Negative) Urine Nitrite (Negative) Urine Bilirubin (Negative) Urine Urobilinogen (Negative) Ur Leukocyte Esterase (Negative) Urine WBC (Auto) (0-5) /hpf Urine RBC (Auto) (0-4) /hpf U Hyaline Cast (Auto) (0-5) /lpf U Epithel Cells (Auto) (0-5) /lpf Urine Bacteria (Auto) (Negative) Urine Yeast (None Prsent) 03/20/23 03/21/23 03/21/23 Range/Units 23:00 07:24 07:24 WBC 5.76 (4.8-10.8) K/ul RBC 2.89 L (4.20-5.40) M/uL Hgb 10.9 L (12.0-16.0) g/dl Hct 31.7 L (37.0-47.0) % MCV 109.7 H (80.0-100.0) fL MCH 37.7 H (25.0-34.0) pg MCHC 34.4 (32.0-36.0) g/dL RDW Std Deviation 54.6 H (36.4-46.3) fL RDW Coeff of Jon 13.6 (11.5-14.5) % Plt Count 302 (130-400) K/uL MPV 9.6 (9.4-12.4) fL Immature Gran % (Auto) 0.3 % Neut % (Auto) 54.6 % Lymph % (Auto) 32.1 % Bremer % (Auto) 10.2 % Eos % (Auto) 2.3 % Baso % (Auto) 0.5 % Neut # (Auto) 3.14 (1.40-6.50) K/uL Lymph # (Auto) 1.85 (1.2-3.4) K/uL Bremer # (Auto) 0.59 (0.11-0.59) K/uL Eos # (Auto) 0.13 (0-0.50) K/uL Baso # (Auto) 0.03 (0-0.2) K/uL Immature Gran # (Auto) 0.02 (0.01-0.20) K/uL Absolute Nucleated RBC (0-0.12) K/uL Nucleated RBC % (auto) % PT (9.0-12.0) Seconds INR (0.9-1.1) APTT (21.0-31.0) Seconds PTT Ratio Sodium 139 (136-145) mmol/L Potassium 3.4 L (3.5-5.1) mmol/L Chloride 102 (98-107) mmol/L Carbon Dioxide 30 (21-32) mmol/L Anion Gap 7 (3-11) BUN 23 (6-23) mg/dl Creatinine 0.91 (0.6-1.2) mg/dl Est Cr Clr Drug Dosing 50.8 Est GFR ( Amer) 65.7 ml/min Est GFR (Non-Af Amer) 56.7 ml/min BUN/Creatinine Ratio 25.3 H (10-20) Glucose 157 H (70-99(Fasting)) mg/dl POC Glucose (70-99) mg/dl Estimat Average Glucose mg/dl Hemoglobin A1c (4.5-5.6) % Calcium 9.5 (8.6-10.3) mg/dl Magnesium 1.9 (1.7-2.4) mg/dl Total Bilirubin (0.2-1.0) mg/dl AST (13-39) U/L ALT (7-52) U/L Alkaline Phosphatase (34-104) U/L Troponin I High Sens (0-14) pg/ml Total Protein (6.0-8.3) gm/dl Albumin (3.4-5.0) gm/dl Globulin (2.5-4.0) gm/dl Albumin/Globulin Ratio (0.9-2) TSH (0.300-4.500) uIu/ml Urine Color Yellow Urine Appearance Cloudy A (Clear) Urine pH 7.0 (4.5-7.5) Ur Specific [place] 1.011 (1.000-1.030) Urine Protein Negative (Negative) Urine Glucose (UA) Negative (Negative) Urine Ketones Negative (Negative) Urine Blood Negative (Negative) Urine Nitrite Negative (Negative) Urine Bilirubin Negative (Negative) Urine Urobilinogen Negative (Negative) Ur Leukocyte Esterase 1+ H (Negative) Urine WBC (Auto) 10-30 H (0-5) /hpf Urine RBC (Auto) 0-4 (0-4) /hpf U Hyaline Cast (Auto) 1-5 (0-5) /lpf U Epithel Cells (Auto) >30 H (0-5) /lpf Urine Bacteria (Auto) 1+ H (Negative) Urine Yeast Present A (None Prsent) 03/21/23 03/21/23 03/21/23 Range/Units 07:24 08:21 11:53 WBC (4.8-10.8) K/ul RBC (4.20-5.40) M/uL Hgb (12.0-16.0) g/dl Hct (37.0-47.0) % MCV (80.0-100.0) fL MCH (25.0-34.0) pg MCHC (32.0-36.0) g/dL RDW Std Deviation (36.4-46.3) fL RDW Coeff of Jon (11.5-14.5) % Plt Count (130-400) K/uL MPV (9.4-12.4) fL Immature Gran % (Auto) % Neut % (Auto) % Lymph % (Auto) % Bremer % (Auto) % Eos % (Auto) % Baso % (Auto) % Neut # (Auto) (1.40-6.50) K/uL Lymph # (Auto) (1.2-3.4) K/uL Bremer # (Auto) (0.11-0.59) K/uL Eos # (Auto) (0-0.50) K/uL Baso # (Auto) (0-0.2) K/uL Immature Gran # (Auto) (0.01-0.20) K/uL Absolute Nucleated RBC (0-0.12) K/uL Nucleated RBC % (auto) % PT (9.0-12.0) Seconds INR (0.9-1.1) APTT (21.0-31.0) Seconds PTT Ratio Sodium (136-145) mmol/L Potassium (3.5-5.1) mmol/L Chloride (98-107) mmol/L Carbon Dioxide (21-32) mmol/L Anion Gap (3-11) BUN (6-23) mg/dl Creatinine (0.6-1.2) mg/dl Est Cr Clr Drug Dosing Est GFR ( Amer) ml/min Est GFR (Non-Af Amer) ml/min BUN/Creatinine Ratio (10-20) Glucose (70-99(Fasting)) mg/dl POC Glucose 147 H 180 H (70-99) mg/dl Estimat Average Glucose 203 mg/dl Hemoglobin A1c 8.7 H (4.5-5.6) % Calcium (8.6-10.3) mg/dl Magnesium (1.7-2.4) mg/dl Total Bilirubin (0.2-1.0) mg/dl AST (13-39) U/L ALT (7-52) U/L Alkaline Phosphatase (34-104) U/L Troponin I High Sens (0-14) pg/ml Total Protein (6.0-8.3) gm/dl Albumin (3.4-5.0) gm/dl Globulin (2.5-4.0) gm/dl Albumin/Globulin Ratio (0.9-2) TSH (0.300-4.500) uIu/ml Urine Color Urine Appearance (Clear) Urine pH (4.5-7.5) Ur Specific [place] (1.000-1.030) Urine Protein (Negative) Urine Glucose (UA) (Negative) Urine Ketones (Negative) Urine Blood (Negative) Urine Nitrite (Negative) Urine Bilirubin (Negative) Urine Urobilinogen (Negative) Ur Leukocyte Esterase (Negative) Urine WBC (Auto) (0-5) /hpf Urine RBC (Auto) (0-4) /hpf U Hyaline Cast (Auto) (0-5) /lpf U Epithel Cells (Auto) (0-5) /lpf Urine Bacteria (Auto) (Negative) Urine Yeast (None Prsent) 03/21/23 03/21/23 03/21/23 Range/Units 17:14 19:55 20:52 WBC (4.8-10.8) K/ul RBC (4.20-5.40) M/uL Hgb (12.0-16.0) g/dl Hct (37.0-47.0) % MCV (80.0-100.0) fL MCH (25.0-34.0) pg MCHC (32.0-36.0) g/dL RDW Std Deviation (36.4-46.3) fL RDW Coeff of Jon (11.5-14.5) % Plt Count (130-400) K/uL MPV (9.4-12.4) fL Immature Gran % (Auto) % Neut % (Auto) % Lymph % (Auto) % Bre[place] % (Auto) % Eos % (Auto) % Baso % (Auto) % Neut # (Auto) (1.40-6.50) K/uL Lymph # (Auto) (1.2-3.4) K/uL Bremer # (Auto) (0.11-0.59) K/uL Eos # (Auto) (0-0.50) K/uL Baso # (Auto) (0-0.2) K/uL Immature Gran # (Auto) (0.01-0.20) K/uL Absolute Nucleated RBC (0-0.12) K/uL Nucleated RBC % (auto) % PT (9.0-12.0) Seconds INR (0.9-1.1) APTT (21.0-31.0) Seconds PTT Ratio Sodium (136-145) mmol/L Potassium (3.5-5.1) mmol/L Chloride (98-107) mmol/L Carbon Dioxide (21-32) mmol/L Anion Gap (3-11) BUN (6-23) mg/dl Creatinine (0.6-1.2) mg/dl Est Cr Clr Drug Dosing Est GFR ( Amer) ml/min Est GFR (Non-Af Amer) ml/min BUN/Creatinine Ratio (10-20) Glucose (70-99(Fasting)) mg/dl POC Glucose 146 H 172 H (70-99) mg/dl Estimat Average Glucose mg/dl Hemoglobin A1c (4.5-5.6) % Calcium (8.6-10.3) mg/dl Magnesium (1.7-2.4) mg/dl Total Bilirubin (0.2-1.0) mg/dl AST (13-39) U/L ALT (7-52) U/L Alkaline Phosphatase (34-104) U/L Troponin I High Sens 11.0 (0-14) pg/ml Total Protein (6.0-8.3) gm/dl Albumin (3.4-5.0) gm/dl Globulin (2.5-4.0) gm/dl Albumin/Globulin Ratio (0.9-2) TSH (0.300-4.500) uIu/ml Urine Color Urine Appearance (Clear) Urine pH (4.5-7.5) Ur Specific [place] (1.000-1.030) Urine Protein (Negative) Urine Glucose (UA) (Negative) Urine Ketones (Negative) Urine Blood (Negative) Urine Nitrite (Negative) Urine Bilirubin (Negative) Urine Urobilinogen (Negative) Ur Leukocyte Esterase (Negative) Urine WBC (Auto) (0-5) /hpf Urine RBC (Auto) (0-4) /hpf U Hyaline Cast (Auto) (0-5) /lpf U Epithel Cells (Auto) (0-5) /lpf Urine Bacteria (Auto) (Negative) Urine Yeast (None Prsent) 03/22/23 03/22/23 03/22/23 Range/Units 05:53 05:53 08:11 WBC 5.92 (4.8-10.8) K/ul RBC 2.69 L (4.20-5.40) M/uL Hgb 10.0 L (12.0-16.0) g/dl Hct 29.6 L (37.0-47.0) % MCV 110.0 H (80.0-100.0) fL MCH 37.2 H (25.0-34.0) pg MCHC 33.8 (32.0-36.0) g/dL RDW Std Deviation 54.8 H (36.4-46.3) fL RDW Coeff of Jon 13.6 (11.5-14.5) % Plt Count 282 (130-400) K/uL MPV 10.0 (9.4-12.4) fL Immature Gran % (Auto) % Neut % (Auto) % Lymph % (Auto) % [place] % (Auto) % Eos % (Auto) % Baso % (Auto) % Neut # (Auto) (1.40-6.50) K/uL Lymph # (Auto) (1.2-3.4) K/uL [place] # (Auto) (0.11-0.59) K/uL Eos # (Auto) (0-0.50) K/uL Baso # (Auto) (0-0.2) K/uL Immature Gran # (Auto) (0.01-0.20) K/uL Absolute Nucleated RBC 0.03 (0-0.12) K/uL Nucleated RBC % (auto) 0.5 % PT (9.0-12.0) Seconds INR (0.9-1.1) APTT (21.0-31.0) Seconds PTT Ratio Sodium 139 (136-145) mmol/L Potassium 3.9 (3.5-5.1) mmol/L Chloride 103 (98-107) mmol/L Carbon Dioxide 30 (21-32) mmol/L Anion Gap 6 (3-11) BUN 25 H (6-23) mg/dl Creatinine 1.14 (0.6-1.2) mg/dl Est Cr Clr Drug Dosing 40.5 Est GFR ( Amer) 50.1 ml/min Est GFR (Non-Af Amer) 43.2 ml/min BUN/Creatinine Ratio 21.9 H (10-20) Glucose 144 H (70-99(Fasting)) mg/dl POC Glucose 130 H (70-99) mg/dl Estimat Average Glucose mg/dl Hemoglobin A1c (4.5-5.6) % Calcium 9.4 (8.6-10.3) mg/dl Magnesium (1.7-2.4) mg/dl Total Bilirubin (0.2-1.0) mg/dl AST (13-39) U/L ALT (7-52) U/L Alkaline Phosphatase (34-104) U/L Troponin I High Sens (0-14) pg/ml Total Protein (6.0-8.3) gm/dl Albumin (3.4-5.0) gm/dl Globulin (2.5-4.0) gm/dl Albumin/Globulin Ratio (0.9-2) TSH (0.300-4.500) uIu/ml Urine Color Urine Appearance (Clear) Urine pH (4.5-7.5) Ur Specific [place] (1.000-1.030) Urine Protein (Negative) Urine Glucose (UA) (Negative) Urine Ketones (Negative) Urine Blood (Negative) Urine Nitrite (Negative) Urine Bilirubin (Negative) Urine Urobilinogen (Negative) Ur Leukocyte Esterase (Negative) Urine WBC (Auto) (0-5) /hpf Urine RBC (Auto) (0-4) /hpf U Hyaline Cast (Auto) (0-5) /lpf U Epithel Cells (Auto) (0-5) /lpf Urine Bacteria (Auto) (Negative) Urine Yeast (None Prsent) 03/22/23 03/22/23 Range/Units 12:14 17:06 WBC (4.8-10.8) K/ul RBC (4.20-5.40) M/uL Hgb (12.0-16.0) g/dl Hct (37.0-47.0) % MCV (80.0-100.0) fL MCH (25.0-34.0) pg MCHC (32.0-36.0) g/dL RDW Std Deviation (36.4-46.3) fL RDW Coeff of Jon (11.5-14.5) % Plt Count (130-400) K/uL MPV (9.4-12.4) fL Immature Gran % (Auto) % Neut % (Auto) % Lymph % (Auto) % [place] % (Auto) % Eos % (Auto) % Baso % (Auto) % Neut # (Auto) (1.40-6.50) K/uL Lymph # (Auto) (1.2-3.4) K/uL [place] # (Auto) (0.11-0.59) K/uL Eos # (Auto) (0-0.50) K/uL Baso # (Auto) (0-0.2) K/uL Immature Gran # (Auto) (0.01-0.20) K/uL Absolute Nucleated RBC (0-0.12) K/uL Nucleated RBC % (auto) % PT (9.0-12.0) Seconds INR (0.9-1.1) APTT (21.0-31.0) Seconds PTT Ratio Sodium (136-145) mmol/L Potassium (3.5-5.1) mmol/L Chloride (98-107) mmol/L Carbon Dioxide (21-32) mmol/L Anion Gap (3-11) BUN (6-23) mg/dl Creatinine (0.6-1.2) mg/dl Est Cr Clr Drug Dosing Est GFR ( Amer) ml/min Est GFR (Non-Af Amer) ml/min BUN/Creatinine Ratio (10-20) Glucose (70-99(Fasting)) mg/dl POC Glucose 140 H 127 H (70-99) mg/dl Estimat Average Glucose mg/dl Hemoglobin A1c (4.5-5.6) % Calcium (8.6-10.3) mg/dl Magnesium (1.7-2.4) mg/dl Total Bilirubin (0.2-1.0) mg/dl AST (13-39) U/L ALT (7-52) U/L Alkaline Phosphatase (34-104) U/L Troponin I High Sens (0-14) pg/ml Total Protein (6.0-8.3) gm/dl Albumin (3.4-5.0) gm/dl Globulin (2.5-4.0) gm/dl Albumin/Globulin Ratio (0.9-2) TSH (0.300-4.500) uIu/ml Urine Color Urine Appearance (Clear) Urine pH (4.5-7.5) Ur Specific [place] (1.000-1.030) Urine Protein (Negative) Urine Glucose (UA) (Negative) Urine Ketones (Negative) Urine Blood (Negative) Urine Nitrite (Negative) Urine Bilirubin (Negative) Urine Urobilinogen (Negative) Ur Leukocyte Esterase (Negative) Urine WBC (Auto) (0-5) /hpf Urine RBC (Auto) (0-4) /hpf U Hyaline Cast (Auto) (0-5) /lpf U Epithel Cells (Auto) (0-5) /lpf Urine Bacteria (Auto) (Negative) Urine Yeast (None Prsent) Administered Medications Cyanocobalamin (Cyanocobalamin (B-12) 500 Mcg Tablet) 1,000 mcg PO 1400 [facility] Stop: 04/20/23 13:59 Last Admin: 03/23/23 12:58 Dose: 1,000 mcg Documented By: Admin: 03/22/23 13:20 Dose: 1,000 mcg Documented By: Admin: 03/21/23 13:48 Dose: 1,000 mcg Documented By: SABRINA Heparin Sodium (Porcine) (Heparin Sod 5,000 Unit/0.5 Ml Vial) 5,000 units SQ Q12 [facility] Stop: 04/20/23 08:59 Last Admin: 03/23/23 07:37 Dose: 5,000 units Documented By: Admin: 03/22/23 21:17 Dose: 5,000 units Documented By: Admin: 03/22/23 08:54 Dose: 5,000 units Documented By: Admin: 03/21/23 20:11 Dose: 5,000 units Documented By: Admin: 03/21/23 08:56 Dose: 5,000 units Documented By: SABRINA Insulin Aspart (Insulin Aspart Per Unit Charge) 0 units SC ACHS [facility] Stop: 04/20/23 07:29 Last Admin: 03/23/23 21:01 Dose: Not Given Documented By: Admin: 03/23/23 16:50 Dose: Not Given Documented By: Admin: 03/23/23 12:30 Dose: Not Given Documented By: Admin: 03/23/23 08:04 Dose: Not Given Documented By: Admin: 03/22/23 21:17 Dose: 2 units Documented By: EMILY Co-signed By: BLANCA Admin: 03/22/23 17:09 Dose: Not Given Documented By: Admin: 03/22/23 12:20 Dose: Not Given Documented By: Admin: 03/22/23 08:55 Dose: Not Given Documented By: Admin: 03/21/23 21:44 Dose: 1 units Documented By: HEBER Co-signed By: TRUNG Admin: 03/21/23 18:13 Dose: Not Given Documented By: Admin: 03/21/23 13:48 Dose: 1 units Documented By: SABRINA Co-signed By: RONAK Admin: 03/21/23 10:31 Dose: Not Given Documented By: SABRINA Lactobacillus Acidophilus (Advanced Probiotic 1250 Mg Capsule) 2 cap PO QAM [facility] Stop: 04/20/23 08:59 Last Admin: 03/23/23 07:37 Dose: 2 cap Documented By: Admin: 03/22/23 08:54 Dose: 2 cap Documented By: Admin: 03/21/23 08:55 Dose: 2 cap Documented By: SABRINA Levothyroxine Sodium (Levothyroxine Sodium 88 Mcg Tablet) 88 mcg PO DAILYBB [facility] Stop: 04/20/23 06:29 Last Admin: 03/23/23 05:46 Dose: 88 mcg Documented By: Admin: 03/22/23 05:15 Dose: 88 mcg Documented By: Admin: 03/21/23 06:21 Dose: 88 mcg Documented By: OKSANA Magnesium Oxide (Magnesium Oxide 400 Mg Tab) 400 mg PO 1400 [facility] Stop: 04/20/23 13:59 Last Admin: 03/23/23 12:58 Dose: 400 mg Documented By: Admin: 03/22/23 13:20 Dose: 400 mg Documented By: Admin: 03/21/23 13:49 Dose: 400 mg Documented By: SABRINA Meclizine HCl (Meclizine Hcl 25 Mg Tab) 25 mg PO TID PRN PRN Reason: Dizziness Stop: 04/20/23 04:43 Last Admin: 03/21/23 13:54 Dose: 25 mg Documented By: SABRINA Methenamine Hippurate (Methenamine Hippurate 1 Gm Tab) 1 gm PO HS [facility] Stop: 04/20/23 20:59 Last Admin: 03/22/23 21:17 Dose: 1 gm Documented By: Admin: 03/21/23 20:11 Dose: 1 gm Documented By: HEBER Metoprolol Succinate (Metoprolol Succ 25mg Ext Rel Tab) 12.5 mg PO QPM [facility] Stop: 04/20/23 20:59 Last Admin: 03/22/23 21:16 Dose: 12.5 mg Documented By: Admin: 03/21/23 20:12 Dose: 12.5 mg Documented By: HEBER Pantoprazole Sodium (Pantoprazole 40 Mg Tab) 40 mg PO DAILYBB [facility] Stop: 04/20/23 06:29 Last Admin: 03/23/23 05:46 Dose: 40 mg Documented By: Admin: 03/22/23 05:15 Dose: 40 mg Documented By: Admin: 03/21/23 06:21 Dose: 40 mg Documented By: OKSANA Potassium Chloride (Potassium Chloride Crtab 20 Meq Tabcr) 20 meq PO AMHS [facility] Stop: 04/20/23 08:59 Last Admin: 03/23/23 07:44 Dose: 20 meq Documented By: Admin: 03/22/23 21:16 Dose: 20 meq Documented By: Admin: 03/22/23 08:54 Dose: 20 meq Documented By: Admin: 03/21/23 20:13 Dose: 20 meq Documented By: Admin: 03/21/23 08:55 Dose: 20 meq Documented By: SABRINA Senna/Docusate Sodium (Docusate Sodium/Senna 50/8.6mg Tab) 1 tab PO BID@0900,1400 [facility] Stop: 04/20/23 08:59 Last Admin: 03/23/23 12:58 Dose: Not Given Documented By: Admin: 03/23/23 07:37 Dose: Not Given Documented By: Admin: 03/22/23 13:20 Dose: 1 tab Documented By: Admin: 03/22/23 08:54 Dose: 1 tab Documented By: Admin: 03/21/23 13:49 Dose: 1 tab Documented By: Admin: 03/21/23 08:54 Dose: 1 tab Documented By: SABRINA Spironolactone (Spironolactone 12.5 Mg Tab) 12.5 mg PO QAM BR[facility] Stop: 04/20/23 08:59 Last Admin: 03/23/23 07:37 Dose: 12.5 mg Documented By: Admin: 03/22/23 08:54 Dose: 12.5 mg Documented By: Admin: 03/21/23 08:54 Dose: 12.5 mg Documented By: SABRINA Torsemide (Torsemide 20 Mg Tab) 60 mg PO QAM BRENT Stop: 04/20/23 08:59 Last Admin: 03/23/23 07:37 Dose: 60 mg Documented By: Admin: 03/22/23 08:54 Dose: 60 mg Documented By: Admin: 03/21/23 08:55 Dose: 60 mg Documented By: SABRINA Vibegron (Vibegron 75 Mg Tab) 75 mg PO DAILY [facility] Stop: 04/20/23 08:59 Last Admin: 03/23/23 07:37 Dose: 75 mg Documented By: Admin: 03/22/23 08:54 Dose: 75 mg Documented By: Admin: 03/21/23 08:55 Dose: 75 mg Documented By: SABRINA Discontinued Medications Meclizine HCl (Meclizine 12.5 Mg Tab) 12.5 mg PO NOW STA Stop: 03/20/23 21:55 Last Admin: 03/20/23 23:32 Dose: 12.5 mg Documented By: FATOU Imaging Data Radiologist's Impression: Head CT 03/20/23 17:52 Exam(s): CT HEAD Without Contrast EXAM: CT Head Without Intravenous Contrast CLINICAL HISTORY: Reason for exam: Dizziness. TECHNIQUE: Axial computed tomography images of the head/brain without intravenous contrast. CTDI is 36.79 mGy and DLP is 546.36 mGy-cm. Automated exposure control was utilized for the study. A dose lowering technique was utilized adhering to the principles of ALARA. COMPARISON: Head CT 10/22/2022 FINDINGS: Brain: No hemorrhage, extra-axial fluid collection, mass effect, or edema. Chronic microvascular ischemic changes and mild atrophy. Ventricles: Unremarkable. Bones/joints: Unremarkable. No fracture. Soft tissues: Unremarkable. Sinuses: No acute sinusitis. Mastoid air cells: Unremarkable as visualized. IMPRESSION: 1. No acute intracranial abnormality. Electronically signed by: Carlos Crane MD 03/20/23 23:25 PM Discharge Plan Visit Data Chief Complaint: Dizziness Stated Complaint: DIZZINESS ED Provider: Razia Chambers Discharge Problem: Vertigo, Pacemaker Patient Disposition: Admitted As Inpatient Discharge Instructions Interventions: ED Discharge Assessment Last Done: 03/21/23 04:44
[2023-03-21] MEDS ORDERED: CHOLECALCIFEROL 1,000 UNITS 25 MCG TAB PO SCH (04:44)
[2023-03-21] MEDS ORDERED: CARBOHYDRATES FOR HYPOGLYCEMIA PO PRN (04:44)
[2023-03-21] MEDS ORDERED: DEXTROSE 50% 50 ML SYRINGE IV PRN (04:44)
[2023-03-21] MEDS ORDERED: GLUCOSE 10 TAB/TUBE PO PRN (04:44)
[2023-03-21] MEDS ORDERED: ACETAMINOPHEN 325 MG TAB PO PRN (04:44)
[2023-03-21] MEDS ORDERED: MECLIZINE HCL 25 MG TAB PO PRN (04:44)
[2023-03-21] MEDS ORDERED: GLUCOSAMINE CHONDROITIN PO SCH (04:44)
[2023-03-21] MEDS ORDERED: ACETAMINOPHEN 500 MG TAB PO PRN (04:44)
[2023-03-21] MEDS ORDERED: GLUCOSE 40% GEL 15 GM TUBE PO PRN (04:44)
[2023-03-21] MEDS ORDERED: NON-FORMULARY MEDICATION (D-Mannose 500 mg Capsule) PO SCH (04:44)
[2023-03-21] MEDS ORDERED: GLUCAGON FOR INJ 1 MG VIAL SQ PRN (04:44)
[2023-03-21] MEDS ORDERED: HYDROcodone/HOMATROPINE SYRUP 5MG/1.5MG 5ML UDP PO PRN (05:11)
[2023-03-21] MEDS: PANTOprazole 40 MG TAB PO SCH (06:21)
[2023-03-21] MEDS: LEVOTHYROXINE SODIUM 88 MCG TABLET PO SCH (06:21)
--- NOTE | 2023-03-21 07:16 | XRay Report ---
SINGLE VIEW CHEST CLINICAL HISTORY: Dizziness. FINDINGS: An AP, portable, upright chest radiograph is compared to chest x-ray and chest CT dated 09/26. The examination is degraded by portable technique and patient rotation. A 3-lead cardiac pace maker is unchanged in position. The heart is enlarged. The pulmonary vasculature is noncongested. Chr onic interstitial thickening is similar to previous. Scarring/atelectasis is seen at both lung bases. No airspace consolidation or large pleural effusion is identified. No pneumothorax is seen. The skel etal structures are osteopenic. The bony thorax is grossly intact. Calcific tendinopathy is noted in the left shoulder. IMPRESSION: 1. Cardiomegaly and cardiac pacemaker. There is no radiographic evidence of congestive failure. 2. No airspace consolidation or large pleural effusion is identified. Electronically signed by: Nigel Virgen M.D. 03/21/2023 7:14 AM
[2023-03-21 08:47] LABS: BUN Creatinine Ratio 25.3 (10-20); Calcium 9.5 mg/dl (8.6-10.3); Creatinine Clr Calc Pharmacy 50.8 ml/min; Est GFR (African American) 65.7 ml/min; Est GFR (Non-African American) 56.7 ml/min; Magnesium 1.9 mg/dl (1.7-2.4); Potassium 3.4 mmol/L (3.5-5.1)
[2023-03-21] MEDS: DOCUSATE SODIUM/SENNA 50/8.6MG TAB PO SCH ×2 (08:54→13:49)
[2023-03-21] MEDS: SPIRONOLACTONE 12.5 MG TAB PO SCH (08:54)
[2023-03-21] MEDS: POTASSIUM CHLORIDE CRTAB 20 MEQ TABCR PO SCH ×2 (08:55→20:13)
[2023-03-21] MEDS: ADVANCED PROBIOTIC 1250 MG CAPSULE PO SCH (08:55)
[2023-03-21] MEDS: TORSEMIDE 20 MG TAB PO SCH (08:55)
[2023-03-21] MEDS: VIBEGRON 75 MG TAB PO SCH (08:55)
[2023-03-21] MEDS: HEPARIN SOD 5,000 UNIT/0.5 ML VIAL SQ SCH ×2 (08:56→20:11)
[2023-03-21 09:01] LABS: Basophils # (auto) 0.03 K/uL (0-0.2); Basophils % (auto) 0.5 %; Eosinophils # (auto) 0.13 K/uL (0-0.50); Eosinophils % (auto) 2.3 %; Hematocrit (blood only) 31.7 % (37.0-47.0); Hemoglobin 10.9 g/dl (12.0-16.0); Immature Granulocytes # (auto) 0.02 K/uL (0.01-0.20); Immature Granulocytes % (auto) 0.3 %; Lymphocytes # (auto) 1.85 K/uL (1.2-3.4); Lymphocytes % (auto) 32.1 %; Mean Corpuscular Hemoglobin 37.7 pg (25.0-34.0); Mean Corpuscular Hgb Conc 34.4 g/dL (32.0-36.0); Mean Corpuscular Volume 109.7 fL (80.0-100.0); Mean Platelet Volume 9.6 fL (9.4-12.4); Monocytes # (auto) 0.59 K/uL (0.11-0.59); Monocytes % (auto) 10.2 %; Neutrophils # (auto) 3.14 K/uL (1.40-6.50); Neutrophils % (auto) 54.6 %; Platelet Count 302 K/uL (130-400); RDW Coefficient of Variation 13.6 % (11.5-14.5); RDW Standard Deviation 54.6 fL (36.4-46.3); Red Blood Count 2.89 M/uL (4.20-5.40); White Blood Count 5.76 K/ul (4.8-10.8)
[2023-03-21 09:14] LABS: Estimated Average Glucose 203 mg/dl; Hemoglobin A1C 8.7 % (4.5-5.6)
[2023-03-21] MEDS: INSULIN ASPART PER UNIT CHARGE SC SCH ×4 (10:31→21:44)
--- NOTE | 2023-03-21 10:32 | Electrocardiogram Report ---
Test Reason : Blood Pressure : / mmHG Vent. Rate : 079 BPM Atrial Rate : 079 BPM P-R Int : 138 ms QRS Dur : 176 ms QT Int : 470 ms P-R-T Axes : 002 -68 104 degrees QTc Int : 538 ms Atrial-sensed ventricular-paced rhythm Biventricular pacemaker detected Abnormal ECG When compared with ECG of 22-OCT-2022 11:29, Vent. rate has increased BY 6 BPM Confirmed by Mak Salinas ([id number]) on 03/21/2023 10:31:45 AM Referred By: REFERRED SELF Confirmed By:Mak Salinas
[2023-03-21] MEDS: CYANOCOBALAMIN (B-12) 500 MCG TABLET PO SCH (13:48)
[2023-03-21] MEDS: MAGNESIUM OXIDE 400 MG TAB PO SCH (13:49)
--- NOTE | 2023-03-21 17:15 | Communication Note ---
Date of Service: March 21, 2023 Patient admitted today from home for vertigo. Reports feeling like room is spinning when she gets up. History of BPPV which improved with vestibular thera py. Also, daughter reports mom was experiencing chest pain with deep breathing--> patient describes sensation of brief, sharp "twinges" on her left chest which has been ongoing for some time now. Patient reports "I've been told I don't take deep breaths so I've been trying" A/P 1)- Vertigo -- PT/OT. Likely will need vestibular therapy again. meclizine prn --Check orthostatic vital signs 2 atypical chest pain which sounds pleuritic in nature --> EKG shows V paced rhythm, trop neg on admission will repeat. CXR unremarkable. CTA chest from 10/22/2022 shows bilateral atelectasis. Will repeat trop now Will check TTE to evaluate further Full note tomorrow
[2023-03-21] MEDS: METHENAMINE HIPPURATE 1 GM TAB PO SCH (20:11)
[2023-03-21] MEDS: METOPROLOL SUCC 25MG EXT REL TAB PO SCH (20:12)
[2023-03-22] MEDS: PANTOprazole 40 MG TAB PO SCH (05:15)
[2023-03-22] MEDS: LEVOTHYROXINE SODIUM 88 MCG TABLET PO SCH (05:15)
[2023-03-22 06:17] LABS: Hematocrit (blood only) 29.6 % (37.0-47.0); Mean Corpuscular Hemoglobin 37.2 pg (25.0-34.0); Mean Corpuscular Hgb Conc 33.8 g/dL (32.0-36.0); Nucleated RBC # (auto) 0.03 K/uL (0-0.12); Nucleated RBC % (auto) 0.5 %; Platelet Count 282 K/uL (130-400); RDW Coefficient of Variation 13.6 % (11.5-14.5); RDW Standard Deviation 54.8 fL (36.4-46.3); Red Blood Count 2.69 M/uL (4.20-5.40); White Blood Count 5.92 K/ul (4.8-10.8)
[2023-03-22 06:28] LABS: BUN Creatinine Ratio 21.9 (10-20); Calcium 9.4 mg/dl (8.6-10.3); Creatinine Clr Calc Pharmacy 40.5 ml/min; Est GFR (African American) 50.1 ml/min; Est GFR (Non-African American) 43.2 ml/min; Potassium 3.9 mmol/L (3.5-5.1)
[2023-03-22] MEDS: SPIRONOLACTONE 12.5 MG TAB PO SCH (08:54)
[2023-03-22] MEDS: DOCUSATE SODIUM/SENNA 50/8.6MG TAB PO SCH ×2 (08:54→13:20)
[2023-03-22] MEDS: TORSEMIDE 20 MG TAB PO SCH (08:54)
[2023-03-22] MEDS: HEPARIN SOD 5,000 UNIT/0.5 ML VIAL SQ SCH ×2 (08:54→21:17)
[2023-03-22] MEDS: ADVANCED PROBIOTIC 1250 MG CAPSULE PO SCH (08:54)
[2023-03-22] MEDS: VIBEGRON 75 MG TAB PO SCH (08:54)
[2023-03-22] MEDS: POTASSIUM CHLORIDE CRTAB 20 MEQ TABCR PO SCH ×2 (08:54→21:16)
[2023-03-22] MEDS: INSULIN ASPART PER UNIT CHARGE SC SCH ×4 (08:55→21:17)
[2023-03-22] MEDS: MAGNESIUM OXIDE 400 MG TAB PO SCH (13:20)
[2023-03-22] MEDS: CYANOCOBALAMIN (B-12) 500 MCG TABLET PO SCH (13:20)
--- NOTE | 2023-03-22 17:25 | Hospitalist Progress Note ---
Date of Service March 22, 2023 Assessment & Plan (1) Dizziness: Plan: This is an 87-year-old female with PMH DM type II, recurrent UTIs, hypothyroidism, hyperlipidemia, CKD 3, chronic systolic congestive heart failure, exertional dyspnea, first-degree AV block, left bundle-branch block, CAD, hypertension, lymphedema of both lower extremities, aspirin allergy,history of benign positional vertigo, history of moderate aortic stenosis, history of ischemic cardiomyopathy, status post biventricular cardiac pacemaker who presents dizziness. Dizziness History of benign positional vertigo Says going on for last 1 week got worse lately TTE today now shows severe aortic stenosis (previously it was moderate). Will ask for Cardiology consult Chronic systolic CHF Severe aortic stenosis (prior was moderate) continue home diuretics Recently with intermittent chest pain, now dizziness. Question whether this is related to her severe . Cardiology consult History of recurrent UTIs -no symptoms currently Diabetes On insulin sliding scale will follow blood sugars Hypertension On metoprolol and diuretics We will monitor DVT prophylaxis Heparin subcu Disposition-- Patient with 24 hour caregiver. Yesterday plan for her to return home with home PT and caregivers. Daughter today concerned that mom hasn't gotten out of bed in 3 days and that she would be too weak to return home. I agree with this concern. Will encourage ongoing PT while here and reassess need closer to discharge Will convert to inpatient. Move to telemetry Admission and Anticipated Discharge Date Admission Date: March 21, 2023 Subjective Ongoing light headedness/dizziness when she gets up Denies urinary symptoms Review of Systems Review of Systems: as above Physical Exam Physical Exam: Appears stated age, no acute distress, pleasant and comfortable Respiratory: breathing comfortably on room air Cardiovascular: +systolic murmur, regular rhythm Gastrointestinal (Abdomen): soft, non tender Musculoskeletal: No edema Neurologic: awake, alert, spontaneously moving extremities Results & Data Results & Data Vital Signs (Past 12 Hours) Vital Signs Temp Pulse Resp BP BP Pulse Ox O2 Del Method 03/22/23 14:50 36.4 C L 71 18 124/68 93 Room Air 03/22/23 08:00 36.9 C 68 18 117/74 92 Room Air
[2023-03-22] MEDS: METOPROLOL SUCC 25MG EXT REL TAB PO SCH (21:16)
[2023-03-22] MEDS: METHENAMINE HIPPURATE 1 GM TAB PO SCH (21:17)
[2023-03-23] MEDS: LEVOTHYROXINE SODIUM 88 MCG TABLET PO SCH (05:46)
[2023-03-23] MEDS: PANTOprazole 40 MG TAB PO SCH (05:46)
[2023-03-23 07:28] LABS: Hematocrit (blood only) 30.6 % (37.0-47.0); Hemoglobin 10.4 g/dl (12.0-16.0); Mean Corpuscular Hemoglobin 37.1 pg (25.0-34.0); Mean Corpuscular Volume 109.3 fL (80.0-100.0); Mean Platelet Volume 9.8 fL (9.4-12.4); Nucleated RBC # (auto) 0.03 K/uL (0-0.12); Nucleated RBC % (auto) 0.7 %; Platelet Count 301 K/uL (130-400); RDW Coefficient of Variation 13.9 % (11.5-14.5); RDW Standard Deviation 55.1 fL (36.4-46.3); White Blood Count 4.54 K/ul (4.8-10.8)
[2023-03-23] MEDS: SPIRONOLACTONE 12.5 MG TAB PO SCH (07:37)
[2023-03-23] MEDS: HEPARIN SOD 5,000 UNIT/0.5 ML VIAL SQ SCH ×2 (07:37→21:23)
[2023-03-23] MEDS: DOCUSATE SODIUM/SENNA 50/8.6MG TAB PO SCH ×2 (07:37→12:58)
[2023-03-23] MEDS: ADVANCED PROBIOTIC 1250 MG CAPSULE PO SCH (07:37)
[2023-03-23] MEDS: TORSEMIDE 20 MG TAB PO SCH (07:37)
[2023-03-23] MEDS: VIBEGRON 75 MG TAB PO SCH (07:37)
[2023-03-23] MEDS: POTASSIUM CHLORIDE CRTAB 20 MEQ TABCR PO SCH ×2 (07:44→21:23)
[2023-03-23 07:46] LABS: BUN Creatinine Ratio 25.3 (10-20); Calcium 9.3 mg/dl (8.6-10.3); Creatinine Clr Calc Pharmacy 50.6 ml/min; Est GFR (African American) 65.7 ml/min; Est GFR (Non-African American) 56.7 ml/min; Magnesium 1.9 mg/dl (1.7-2.4); Potassium 3.8 mmol/L (3.5-5.1)
--- NOTE | 2023-03-23 07:52 | Cardiology Consultation ---
Date of Consultation March 23, 2023 Assessment & Plan (1) Severe aortic stenosis: (2) Dizziness: (3) Chronic heart failure with preserved ejection fraction: Plan Repeat echocardiogram suggests severe aortic stenosis with a mild increase of systolic aortic valve gradients compared to most recent echocardiogram in October. I discussed the natural history and pathophysiology of aortic stenosis with the patient. I do not believe the echocardiographic findings are contributing to h er symptoms of vertigo. No further inpatient testing from a cardiovascular perspective. I will arrange for follow-up appointment with her outpatient kit planner to discuss further. Continue current cardiovascular medications. History of Present Illness Reason for Consultation: Progression of aortic valve stenosis Requesting Physician: Dr. Richard Attending Physician: Kayce Richard MD History of Present Illness 87-year-old female present to the emergency department with dizziness. Symptoms consistent with vertigo. Treated with meclizine in the ER with improvement. Questionable urinary tract infection with history of ESBL. Patient seen examined the bedside. Denies exertional chest discomfort, unusual shortness of breath, orthopnea, or PND. No syncope or near syncope. Reports positional dizziness primarily when sitting upright or standing. Ambulates with use of a rolling walker. No recent falls or injuries. Admits to sedentary lifestyle. Cardiac history includes borderline LV systolic dysfunction with left bundle branch block, moderate aortic valve stenosis, and hospitalization for decompensated heart failure. Evaluated by Dr. Case in the outpatient clinic 11/19/2022. During that visit, diuretic therapy titrated. Dr. Case recommended conservative management of aortic stenosis at that time noting that patient is not a strong candidate for SAVR or TAVR. Repeat echocardiogram performed on admission demonstrates severe aortic valve stenosis. Aortic valve systolic gradient has mildly increased when compared to most recent echocar diogram 11/2022. Allergies Allergy/AdvReac Type Severity Reaction Status Date / Time aspirin Allergy Intermediate Hives, Verified 05/12/21 02:24 shortness of breath ibuprofen Allergy Intermediate Rash, hives Verified 05/12/21 02:24 Penicillins Allergy Intermediate Rash, hives Verified 05/12/21 02:24 adhesive Allergy Mild Reddened Verified 05/12/21 02:24 and sore skin ciprofloxacin AdvReac Intermediate Weakness Verified 05/12/21 02:24 prednisone AdvReac Mild Confusion Verified 05/12/21 02:24 Home Medications Medication Instructions Recorded Confirmed Type d-mannose 500 mg capsule 1,000 mg PO AMPM 10/22/22 03/21/23 History mirabegron 25 mg tablet,extended 25 mg PO QAM 10/22/22 03/21/23 History release 24 hr (Myrbetriq) omeprazole 20 mg capsule,delayed 20 mg PO DAILYBB 10/22/22 03/21/23 History release spironolactone 25 mg tablet 12.5 mg PO QAM 10/22/22 03/21/23 History (Aldactone) torsemide 20 mg tablet 60 mg PO QAM 10/22/22 03/21/23 History Lactobacillus acidophilus 10 10,000 mmu cells PO QAM 03/21/23 03/21/23 History billion cell capsule (Probiotic) acetaminophen 500 mg tablet 1,000 mg PO HS PRN leg cramps 03/21/23 03/21/23 History bisacodyl 5 mg tablet,delayed 10 mg PO DAILY PRN Constipation 03/21/23 03/21/23 History release (Dulcolax (bisacodyl)) cholecalciferol (vitamin D3) 25 1,000 unit PO .DAILY AT 2PM 03/21/23 03/21/23 History mcg (1,000 unit) capsule clotrimazole 1 % topical cream 1 applic topical BID PRN affected 03/21/23 03/21/23 History area colchicine 0.6 mg tablet 0.6 mg PO BID PRN gout attacks 03/21/23 03/21/23 History cyanocobalamin (vitamin B-12) 1,000 mcg PO .DAILY @ 2PM 03/21/23 03/21/23 History 1,000 mcg tablet (Vitamin B-12) dulaglutide 0.75 mg/0.5 mL 0.75 mg subcut WK 03/21/23 03/21/23 History subcutaneous pen injector (Trulicity) glucosamine-chondroitin 500 mg-400 1 tab PO AMPM 03/21/23 03/21/23 History mg tablet levothyroxine 88 mcg tablet 88 mcg PO DAILYBB 03/21/23 03/21/23 History magnesium oxide 400 mg (241.3 mg 400 mg PO .@ 2PM 03/21/23 03/21/23 History magnesium) tablet meclizine 25 mg tablet 25 mg PO TID PRN Dizziness 03/21/23 03/21/23 History methenamine hippurate 1 gram tablet 1 g PO HS 03/21/23 03/21/23 History metoprolol succinate 25 mg 12.5 mg PO QPM 03/21/23 03/21/23 History tablet,extended release 24 hr (Toprol XL) potassium chloride 20 mEq 20 meq PO AMHS 03/21/23 03/21/23 History tablet,extended release(part/cryst) promethazine-DM 6.25 mg-15 mg/5 mL 5 ml PO QID PRN persistant cough 03/21/23 03/21/23 History oral syrup quinine-vitamin E capsule 3 cap PO HS PRN leg cramps 03/21/23 03/21/23 History sennosides 8.6 mg-docusate sodium 1 tab-cap PO BID 03/21/23 03/21/23 History 50 mg tablet (Stool Softener-Laxative) Patient History Medical History (Updated 03/23/23 @ 10:10 by Abilio Qureshi DO) Acute on chronic heart failure with preserved ejection fraction (HFpEF) Acute UTI Arthritis CHF (congestive heart failure) Diabetes mellitus, type II History of recurrent UTIs Hypothyroidism Hypoxia Lactic acidemia LBBB (left bundle branch block) Lymphedema NICM (nonischemic cardiomyopathy) Pacemaker Pneumonia Systolic heart failure UTI due to extended-spectrum beta lactamase (ESBL) producing Escherichia coli Vertigo Surgical History History of hysterectomy History of knee replacement, total Hx of cholecystectomy Family History Other Diabetes Heart disease Hypertension Social History Smoking Status: Never smoker Second Hand Exposure: No; Do You Dip or Chew Tobacco: No; Tobacco Cessation Education Requested by Patient: No Hx Alcohol Use: No Hx Substance Use: No Preferred Language: Mongolian Communication Ability: Effective Concrete Technician Required: No Beliefs That Will Affect Care: None marital status: / Current Living Situation: Alone Current Living Situation Comment: has / help at home current occupational status: retired How many Children do You have: 1 Other Information That Helps Us Care for You: No Feels Safe at Home: Yes Safety Concerns: Feels Safe At This Time Assistive Devices: Lift Chair and Other Review of Systems Review of Systems: All systems reviewed & are unremarkable except as noted in Subjective Physical Exam Constitutional: well nourished; no acute distress Respiratory: normal respiratory effort; no respiratory distress, no labored breathing and no retractions Auscultation: no crackles, no rales, no rhonchi and no wheezes Cardiovascular: Rate/Rhythm: regular rate and regular rhythm Heart Sounds: normal S1 and + murmur (3/6 medium pitched mid to late peaking systolic ejection murmur); + abnormal S2 (Diminished) Extremities: + edema (Mild bilateral pedal edema) Gastrointestinal (Abdomen): Inspection/Auscultation: abdomen normal to inspection; abdomen not distended Percussion/Palpation: abdomen soft; abdomen nontender, no guarding and abdomen not rigid Neurologic: CN's II-XI intact bilaterally and moves all extremities; no focal motor deficits Results & Data Vital Signs (Past 12 Hours) Vital Signs Temp Pulse Pulse Resp BP Pulse Ox O2 Del Method 03/23/23 07:42 36.5 C 72 20 130/76 94 Room Air 03/23/23 07:28 85 03/23/23 04:58 36.7 C 64 20 124/72 92 Room Air 03/22/23 23:56 36.6 C 65 20 124/76 92 Room Air 03/22/23 21:59 69 03/22/23 19:51 86 03/22/23 20:00 36.6 C 79 20 132/66 92 Room Air Laboratory Results CBC 03/23/23 Range/Units 06:48 WBC 4.54 L (4.8-10.8) K/ul RBC 2.80 L (4.20-5.40) M/uL Hgb 10.4 L (12.0-16.0) g/dl Hct 30.6 L (37.0-47.0) % Plt Count 301 (130-400) K/uL Comprehensive Metabolic Panel 03/23/23 Range/Units 06:48 Sodium 139 (136-145) mmol/L Potassium 3.8 (3.5-5.1) mmol/L Chloride 104 (98-107) mmol/L Carbon Dioxide 28 (21-32) mmol/L BUN 23 (6-23) mg/dl Creatinine 0.91 (0.6-1.2) mg/dl Glucose 152 H (70-99(Fasting)) mg/dl Calcium 9.3 (8.6-10.3) mg/dl Intake and Output 03/22/23 03/23/23 03/23/23 22:59 06:59 14:59 Intake Total 100 / 1060 120 / 1060 Output Total Balance 100 / 1059 119 / 1059 Intake: Oral 100 / 1060 120 / 1060 Output: # Bowel Movements Other: # Unmeasured Voids 1 Weight 112.3 kg Weight Measurement Method Built in [facility]
[2023-03-23] MEDS: INSULIN ASPART PER UNIT CHARGE SC SCH ×4 (08:04→21:01)
[2023-03-23] MEDS: MAGNESIUM OXIDE 400 MG TAB PO SCH (12:58)
[2023-03-23] MEDS: CYANOCOBALAMIN (B-12) 500 MCG TABLET PO SCH (12:58)
--- NOTE | 2023-03-23 15:27 | Hospitalist Progress Note ---
Date of Service March 23, 2023 Assessment & Plan (1) Dizziness: Plan: This is an 87-year-old female with PMH DM type II, recurrent UTIs, hypothyroidism, hyperlipidemia, CKD 3, chronic systolic congestive heart failure, exertional dyspnea, first-degree AV block, left bundle-branch block, CAD, hypertension, lymphedema of both lower extremities, aspirin allergy,history of benign positional vertigo, history of moderate aortic stenosis, history of ischemic cardiomyopathy, status post biventricular cardiac pacemaker who presents dizziness. Vertigo -History of BPPV in the past for which she had vestibular therapy with resolution -Had Dexter maneuver with PT today with improved nystagmus but patient unsure if her symptoms also improved -Will need ongoing vestibular PT. -Family requesting rehab placement Chronic systolic CHF Severe aortic stenosis (prior was moderate) continue home diuretics Previously with moderate , repeat echo here shows progression to severe -Appreciate Cardiology input, Recommend follow up with primary Extrusion Press Supervisor after discharge. Does not feel current symptoms is due to her History of recurrent UTIs -no symptoms currently Diabetes On insulin sliding scale will follow blood sugars Hypertension On metoprolol and diuretics We will monitor DVT prophylaxis Heparin subcu Disposition-- Patient with 24 hour caregiver. Daughters feel patient would benefit from rehab with her dizziness/vertigo currently. CM notified Admission and Anticipated Discharge Date Admission Date: March 22, 2023 Subjective Patient worked with PT today. Had Dexter maneuver She does not know if her vertigo improved. States "it may be too early to tell" Other daughter, Gladis, is present at bedside Review of Systems Review of Systems: as above Physical Exam Physical Exam: Appears stated age, no acute distress, pleasant and comfortable Respiratory: Breathing comfortably on room air, no wheezing Cardiovascular: +systolic murmur, no rubs/gallops Gastrointestinal (Abdomen): soft, non tender, non distended Musculoskeletal: No edema Neurologic: awake, alert, spontaneously moving extremities Results & Data Results & Data Vital Signs (Past 12 Hours) Vital Signs Temp Pulse Pulse Resp BP Pulse Ox O2 Del Method 03/23/23 15:07 36.5 C 66 20 112/52 L 92 Room Air 03/23/23 13:29 97 03/23/23 11:25 36.5 C 63 18 100/65 93 Room Air 03/23/23 07:42 36.5 C 72 20 130/76 94 Room Air 03/23/23 07:28 85 03/23/23 04:58 36.7 C 64 20 124/72 92 Room Air
[2023-03-23] MEDS: METHENAMINE HIPPURATE 1 GM TAB PO SCH (21:23)
[2023-03-23] MEDS: COLCHICINE 0.6 MG TAB PO PRN (21:23)
[2023-03-23] MEDS: METOPROLOL SUCC 25MG EXT REL TAB PO SCH (21:24)
[2023-03-24] MEDS: PANTOprazole 40 MG TAB PO SCH (05:32)
[2023-03-24] MEDS: LEVOTHYROXINE SODIUM 88 MCG TABLET PO SCH (05:32)
[2023-03-24] MEDS ORDERED: DICLOFENAC SOD 1% GEL 100 GM TUBE EXT PRN (05:36)
[2023-03-24] MEDS: CYANOCOBALAMIN (B-12) 500 MCG TABLET PO SCH (07:39)
[2023-03-24] MEDS: VIBEGRON 75 MG TAB PO SCH (07:39)
[2023-03-24] MEDS: TORSEMIDE 20 MG TAB PO SCH (07:39)
[2023-03-24] MEDS: MAGNESIUM OXIDE 400 MG TAB PO SCH (07:39)
[2023-03-24] MEDS: SPIRONOLACTONE 12.5 MG TAB PO SCH (07:39)
[2023-03-24] MEDS: COLCHICINE 0.6 MG TAB PO PRN (07:39)
[2023-03-24] MEDS: ADVANCED PROBIOTIC 1250 MG CAPSULE PO SCH (07:39)
[2023-03-24] MEDS: HEPARIN SOD 5,000 UNIT/0.5 ML VIAL SQ SCH (07:40)
[2023-03-24] MEDS: DOCUSATE SODIUM/SENNA 50/8.6MG TAB PO SCH ×2 (07:43→13:00)
[2023-03-24] MEDS: POTASSIUM CHLORIDE CRTAB 20 MEQ TABCR PO SCH (07:43)
[2023-03-24] MEDS: INSULIN ASPART PER UNIT CHARGE SC SCH ×2 (08:39→12:59)
[2023-03-24 08:49] LABS: Hematocrit (blood only) 31.7 % (37.0-47.0); Hemoglobin 10.6 g/dl (12.0-16.0); Mean Corpuscular Hemoglobin 37.2 pg (25.0-34.0); Mean Corpuscular Hgb Conc 33.4 g/dL (32.0-36.0); Mean Corpuscular Volume 111.2 fL (80.0-100.0); Mean Platelet Volume 9.5 fL (9.4-12.4); Nucleated RBC # (auto) 0.02 K/uL (0-0.12); Nucleated RBC % (auto) 0.4 %; Platelet Count 292 K/uL (130-400); RDW Coefficient of Variation 13.8 % (11.5-14.5); RDW Standard Deviation 56.3 fL (36.4-46.3); Red Blood Count 2.85 M/uL (4.20-5.40); White Blood Count 5.06 K/ul (4.8-10.8)
[2023-03-24 09:09] LABS: BUN Creatinine Ratio 18.4 (10-20); Calcium 9.5 mg/dl (8.6-10.3); Creatinine Clr Calc Pharmacy 44.6 ml/min; Est GFR (African American) 56.6 ml/min; Est GFR (Non-African American) 48.8 ml/min; Potassium 4.1 mmol/L (3.5-5.1); Uric Acid 7.8 mg/dl (2.6-7.2)
--- NOTE | 2023-03-24 15:17 | Discharge Summary ---
Date of Service March 24, 2023 Admission HPI Per Admitting Provider This is an 87-year-old female with PMH DM type II, recurrent UTIs, hypothyroidism, hyperlipidemia, CKD 3, chronic systolic congestive heart failure, exertional dyspnea, first-degree AV block, left bundle-branch block, CA D, hypertension, lymphedema of both lower extremities, aspirin allergy,history of benign positional vertigo, history of moderate aortic stenosis, history of ischemic cardiomyopathy, status post biventricular cardiac pacemaker who presents dizziness. Patient states this started 1 week ago but got progressively worse. Lying down she is okay when when she ambulates she is feeling very dizzy. She ambulates with a walker. She lives alone at home but she has 24 hours care. Daughter lives close by. Denies any fevers. No nausea. No headaches. Vision is okay. Denies any earaches. No runny nose. No sore throat. Has some cough. Appetite is okay. Swallows okay as per patient. No chest pain. Says he is always short of breath. No abdominal pain. No burning micturition. Normal bowel movements. Currently resting comfortably and hemodynamically stable. In the ER with the meclizine dizziness improved but but she had issues with ambulation. Principal Diagnosis Vertigo due to BPPV Aortic stenosis progression to severe Debility and deconditioning Acute gout flare of right 1st toe Discharge Exam Patient was seen on day of discharge She was feeling well. Right toe redness and pain has resolved after colchicine Breathing comfortably on room air. Heart +systolic murmur, rate and rhythm is regular Discharge Data Allergies Allergy/AdvReac Type Severity Reaction Status Date / Time aspirin Allergy Intermediate Hives, Verified 05/12/21 02:24 shortness of breath ibuprofen Allergy Intermediate Rash, hives Verified 05/12/21 02:24 Penicillins Allergy Intermediate Rash, hives Verified 05/12/21 02:24 adhesive Allergy Mild Reddened Verified 05/12/21 02:24 and sore skin ciprofloxacin AdvReac Intermediate Weakness Verified 05/12/21 02:24 prednisone AdvReac Mild Confusion Verified 05/12/21 02:24 Consultations 03/21/23 01:09 ED Decision to Admit Stat 03/22/23 17:22 Consult Cardiology Routine Ordered Studies 03/20/23 17:52 CT head/brain wo con Stat Hospital Course (1) Dizziness: This is an 87-year-old female with PMH DM type II, recurrent UTIs, hypothyroidism, hyperlipidemia, CKD 3, chronic systolic congestive heart failure, exertional dyspnea, first-degree AV block, left bundle-branch block, CAD, hypertension, lymphedema of both lower extremities, aspirin allergy,history of benign positional vertigo, history of moderate aortic stenosis, history of ischemic cardiomyopathy, status post biventricular cardiac pacemaker who presents with vertigo. Vertigo -History of BPPV in the past for which she had vestibular therapy with resolution -Had Honorio maneuver with PT here with improved nystagmus but patient still with ongoing vertigo -She was seen by PT and OT and recommended she can return home with 24 hour supervision and outpatient PT. -Patient's daughter concerned that mom is a fall risk with her ongoing vertigo and debility. She will be going to [facility] prior to returning home. Chronic systolic CHF Severe aortic stenosis (prior was moderate) continue home diuretics Previously with moderate , repeat echo here shows progression to severe Evaluated by Cardiology here and her vertigo not believed to be related to her . She is recommend to follow up with her primary Fire Management Specialist after discharge to discuss management of her severe . She is euvolemic at the time of discharge Acute gout flare -Right first toe -Uric acid level elevated at 7.6. Started allopurinol 100mg daily -Flare relieved with colchicine x 2 doses given here -Daughter reports recently also with gout flare when after starting her Methenamine--this is now discontinued History of recurrent UTIs -no symptoms currently -Follow up with Urology for management Total Time Total Time Spent Total Time Spent (In Minutes): 40 Discharge Plan Discharge Items Patient Disposition: Transfer Inpatient Rehab Fac Reason For Visit: DIZZINESS Discharge Diagnosis: Vertigo, Likely BPPV Aortic stenosis progression to severe Debility and deconditioning Acute gout flare of right 1st toe Condition on Discharge: Good Activity: Resume your previous activity Non-emergency contact: Primary Care Provider, Fire Management Specialist and Urologist Call non-emergency contact if: you have any medication questions Follow-up/Referrals: Hermann Heredia DO [Fire Management Specialist] - Verónica Benavides MD [Primary Care Provider] - Diet: Carb Consistent or DM2 and Heart Healthy Diet Texture: Easy to Chew Addtl Attending Provider Instructions: You were admitted for vertigo You have a history of BPPV You were seen by PT/OT here and had honorio maneuver with improvement of your nystagmus but still with vertigo You will be discharged to rehab for ongoing PT/OT and vestibular therapy You had an Echo here which showed progression of your aortic stenosis from moderate to now severe stenosis You were seen by Dr Qureshi here and felt that your current vertigo is unrelated to your Valve disease. However, you need to follow up with your primary layer out Dr Heredia to discuss further management of your now severe aortic stenosis You had an acute gout flare of your right toe. You had 2 doses of colchicine with relieve. Your daughter mentions association with Methenamine which you take for your recurrent UTIs. Methenamine is now discontinued. Your uric acid level is elevated so you were started on Allopurinol. Please follow up with your Urologist for your history of recurrent UTIs Pending Studies at Discharge: No Stand-Alone Forms: My [facility] Skilled Items Patient informed of condition?: Yes DNR: No Discharge Level of Care: Acute rehab Communicable Disease: No Discharge Prognosis: Stable Lines: None Urinary Catheter: Yes Medications and DC Order Prescriptions: New allopurinol 100 mg tablet 100 mg PO DAILY Qty: 30 0RF Continued omeprazole 20 mg capsule,delayed release(DR/EC) 20 mg PO DAILYBB Myrbetriq 25 mg tablet extended release 24 hr 25 mg PO QAM d-mannose 500 mg Capsule 1,000 mg PO AMPM torsemide 20 mg tablet 60 mg PO QAM spironolactone [Aldactone] 25 mg tablet 12.5 mg PO QAM levothyroxine 88 mcg tablet 88 mcg PO DAILYBB magnesium oxide 400 mg (241.3 mg magnesium) tablet 400 mg PO .@ 2PM cholecalciferol (vitamin D3) 25 mcg (1,000 unit) capsule 1,000 unit PO .DAILY AT 2PM glucosamine-chondroitin 500-400 mg Tablet 1 tab PO AMPM potassium chloride 20 mEq tablet,ER particles/crystals 20 meq PO AMHS metoprolol succinate [Toprol XL] 25 mg tablet extended release 24 hr 12.5 mg PO QPM sennosides-docusate sodium [Stool Softener-Laxative] 8.6-50 mg Tablet 1 tab-cap PO BID Rx Instructions: take in morning and at 2 pm cyanocobalamin (vitamin B-12) [Vitamin B-12] 1,000 mcg Tablet 1,000 mcg PO .DAILY @ 2PM Probiotic 10 billion cell Capsule 10,000 mmu cells PO QAM Trulicity 0.75 mg/0.5 mL pen injector 0.75 mg SUBCUT WK Rx Instructions: wednesdays promethazine-DM 6.25-15 mg/5 mL syrup 5 ml PO QID PRN (Reason: persistant cough) acetaminophen 500 mg tablet 1,000 mg PO HS PRN (Reason: leg cramps) meclizine 25 mg tablet 25 mg PO TID PRN (Reason: Dizziness) colchicine 0.6 mg tablet 0.6 mg PO BID PRN (Reason: gout attacks) bisacodyl [Dulcolax (bisacodyl)] 5 mg Tablet,Delayed Release (Dr/Ec) 10 mg PO DAILY PRN (Reason: Constipation) clotrimazole 1 % cream 1 applic TOPICAL BID PRN (Reason: affected area ) Rx Instructions: use on affected area quinine-vitamin E Capsule 3 cap PO HS PRN (Reason: leg cramps) Discontinued methenamine hippurate 1 gram tablet 1 g PO HS Discharge Orders: Discharge Order (Routine); Ordered 03/24/23 Ordered By: Kayce Birch/Other Patient Handouts: Managing Type 2 Diabetes Admission Data Admit Date/Time: 03/22/23 17:17 Attending Provider: Kayce Richard Admit Provider: Cyrus Valdez Primary Care Provider: Verónica Benavides Other Providers: Cyrus Valdez ; Abilio Qureshi ; [facility]
== END 2023-03-24 16:10 | DRG 149 ==
LOC: ED 17:43 → EDINP 17:43 → 3N 03-21 04:44 → 2N 03-22 19:11

== ENCOUNTER 2023-12-09 16:18 | Inpatient (IN) ==
--- NOTE | 2023-12-09 16:28 | ED Triage Note ---
Date of Service December 09, 2023 Provider in Triage Author: Wilma Carvajal History of Present Illness This patient was briefly evaluated while in triage. An abbreviated physical exam was performed. This patient is a 88-year-old Female who presents to the ED for evaluation of weakness, "tired, can hardly stand up." Pt with [facility] at home. Urinalysis done last Friday showed different strain of E.coli, took 7 days of Bactrim. Urine is "looking better." Daughter reports "she is getting weaker and weaker. Physical Exam Initial orders for labs and / or imaging were placed and patient was placed in the waiting area until a bed is available. Please see further documentation for the full ED course.
[2023-12-09 18:23] LABS: Appearance Urine Clear (Clear); Bilirubin Urine Negative (Negative); Blood Urine Negative (Negative); Color Urine Yellow; Glucose Urine UA Negative (Negative); Ketones Urine Negative (Negative); Leukocyte Esterase Urine Negative (Negative); Nitrite Urine Negative (Negative); Protein Urine Negative (Negative); Urobilinogen Urine Negative (Negative)
[2023-12-09 18:35] LABS: Basophils # (auto) 0.04 K/uL (0.00-0.20); Basophils % (auto) 0.4 %; Eosinophils # (auto) 0.07 K/uL (0.00-0.50); Eosinophils % (auto) 0.8 %; Hematocrit (blood only) 30.5 % (37.0-47.0); Hemoglobin 10.2 g/dl (12.0-16.0); Immature Granulocytes # (auto) 0.03 K/uL (0.01-0.20); Immature Granulocytes % (auto) 0.3 %; Lymphocytes # (auto) 3.26 K/uL (1.20-3.40); Lymphocytes % (auto) 36.7 %; Mean Corpuscular Hemoglobin 38.1 pg (25.0-34.0); Mean Corpuscular Hgb Conc 33.4 g/dL (32.0-36.0); Mean Corpuscular Volume 113.8 fL (80.0-100.0); Mean Platelet Volume 9.8 fL (9.4-12.4); Monocytes # (auto) 0.94 K/uL (0.11-0.59); Monocytes % (auto) 10.6 %; Neutrophils # (auto) 4.55 K/uL (1.40-6.50); Neutrophils % (auto) 51.2 %; Nucleated RBC # (auto) 0.07 K/uL (0.00-0.12); Nucleated RBC % (auto) 0.8 %; Platelet Count 360 K/uL (130-400); RDW Coefficient of Variation 13.6 % (11.5-14.5); RDW Standard Deviation 57.6 fL (36.4-46.3); Red Blood Count 2.68 M/uL (4.20-5.40); White Blood Count 8.89 K/ul (4.8-10.8)
[2023-12-09 18:51] LABS: Alanine Aminotransferase 7 U/L (7-52); Albumin Level 4.2 gm/dl (3.4-5.0); Alkaline Phosphatase 105 U/L (34-104); Anion Gap 8 (3-11); Aspartate Aminotransferase 13 U/L (13-39); BUN Creatinine Ratio 18.8 (10-20); Bilirubin Direct 0.1 mg/dl (0-0.2); Bilirubin,Total 0.4 mg/dl (0.2-1.0); Blood Urea Nitrogen 26 mg/dl (6-23); Calcium 9.8 mg/dl (8.6-10.3); Carbon Dioxide 28 mmol/L (21-32); Chloride 99 mmol/L (98-107); Est GFR (African American) 39.5 ml/min; Est GFR (Non-African American) 34.1 ml/min; Glucose 170 mg/dl (70-99(Fasting)); Magnesium 2.1 mg/dl (1.7-2.4); Sodium 135 mmol/L (136-145); Total Protein 7.8 gm/dl (6.0-8.3)
[2023-12-09 18:57] LABS: Troponin I High Sensitivity 12.8 pg/ml (0-14)
[2023-12-09 19:00] LABS: Anisocytosis Present; Macrocytosis Present
--- NOTE | 2023-12-09 19:09 | XRay Report ---
SINGLE VIEW CHEST CLINICAL HISTORY: Sepsis. FINDINGS: An AP, portable, upright chest radiograph is compared to study dated 03/20/2023 and correlat ed with chest CT dated 10/22/2022. A 3-lead cardiac pacemaker is unchanged in position. The heart is e nlarged but noting atherosclerotic calcification of the thoracic aorta. There is pulmonary vascular c ongestion. Chronic interstitial thickening is similar to previous. There is bibasilar scarring/atelec tasis. No airspace consolidation or large pleural effusion is identified. No pneumothorax is seen. Th e skeletal structures are osteopenic. The bony thorax is grossly intact. Arthritic change is seen in the shoulders. Calcific tendinopathy is noted on the left. IMPRESSION: 1. Cardiomegaly and cardiac pacemaker with pulmonary vascular congestion. 2. No airspace consolidation or pleural effusion is identified. ACT 112: Negative or not required by law. Electronically signed by: Nigel Virgen M.D. 12/09/2023 7:08 PM
[2023-12-09] MEDS: ERTAPENEM SODIUM 1,000 MG in SYRINGE 0 ML IV SCH (22:07)
--- NOTE | 2023-12-09 23:28 | History & Physical Report ---
Date of Service December 09, 2023 Assessment & Plan (1) UTI due to extended-spectrum beta lactamase (ESBL) producing Escherichia coli: Plan: This is an 88-year-old female with PMH DM type II, recurrent UTIs, hypothyroidism, hyperlipidemia, CKD 3, chronic systolic congestive heart failure, exertional dyspnea, first-degree AV block, left bundle-branch block, CAD, hypertension, lymphedema of both lower extremities, aspirin allergy, ,History of benign positional vertigo, history of severe aortic stenosis, history of ischemic cardiomyopathy, status post biventricular cardiac pacemaker who lives at home with 24 hours care and ambulates with walker was brought in because of weakness and ESBL UTI. Patient was diagnosed with UTI on December 02 with ESBL which is also sensitive to Bactrim. She was taking Bactrim until today and completed the course. But as per daughter patient urine looks clear but she has became more weaker. Currently because of weakness is not able to ambulate. And she was also having some nausea. Which prompted daughter to bring patient to the ER. Because of her recent ESBL infection she was started on Invanz in the ER. Daughter helped with most H&P but patient is also alert and oriented x 3. Has chronic dizziness. Currently no runny nose or sore throat or cough. Appetite is okay. No difficulty swallowing. No chest pain . Has GARNICA.. Currently no nausea. Has some right sided back pain. No burning micturition. Somewhat constipated. Daughter thinks Since yesterday patient gained about 3 pounds of weight. She has chronic lymphedema. But thinks edema is slightly worse. Daughter also wants her mom to be active with physical therapy because she does not want her to go to rehab. Also recommends skin barrier cream. Also recommend to take her to bathroom every 2-3 hours during the morning to micturate and also get the chance to ambulate. And also requesting to place her on lower bed so she can easily get up. ESBL UTI History of recurrent UTIs Started Invanz Will complete the course Will monitor Weakness Ambulatory dysfunction Patient general ambulates with walker But currently is weak to ambulate Mostly from above PT OT Will monitor Diabetes Sliding scale Follow HbA1c STEVE on CKD stage III Baseline creatinine 1 Presented creatinine 1.3 Will follow the labs If worsening will hold the diuretics Chronic lower extremity lymphedema Daughter thinks they are slightly worse Will check Dopplers Will monitor Chronic systolic and diastolic CHF Severe aortic stenosis Dilated cardiomyopathy EF was 30% but now improved to 55% in February 2023 echo S/p biventricular cardiac pacemaker On metoprolol succinate, torsemide and Aldactone. Potassium supplements Will monitor for volume overload Hypertension On metoprolol and diuretics Hypothyroidism On Synthyroid Chronic anemia Hemoglobin 10.2 around baseline. Will follow labs Constipation Stool softeners DVT prophylaxis Heparin subcu Disposition Admit/telemetry CODE STATUS DNR per discussion with the daughter History of Present Illness Chief Complaint: ESBL UTI and weakness Primary Care Provider: Verónica Benavides MD This is an 88-year-old female with PMH DM type II, recurrent UTIs, hypothyroidism, hyperlipidemia, CKD 3, chronic systolic congestive heart failure, exertional dyspnea, first-degree AV block, left bundle-branch block, CAD, hypertension, lymphedema of both lower extremities, aspirin allergy, ,History of benign positional vertigo, history of severe aortic stenosis, history of ischemic cardiomyopathy, status post biventricular cardiac pacemaker who lives at home with 24 hours care and ambulates with walker was brought in because of weakness and ESBL UTI. Patient was diagnosed with UTI on December 02 with ESBL which is also sensitive to Bactrim. She was taking Bactrim until today and completed the course. But as per daughter patient urine looks clear but she has became more weaker. Currently because of weakness is not able to ambulate. And she was also having some nausea. Which prompted daughter to bring patient to the ER. Because of her recent ESBL infection she was started on Invanz in the ER. Daughter helped with most H&P but patient is also alert and oriented x 3. Has chronic dizziness. Currently no runny nose or sore throat or cough. Appetite is okay. No difficulty swallowing. No chest pain . Has GARNICA.. Currently no nausea. Has some right sided back pain. No burning micturition. Somewhat constipated. Daughter thinks Since yesterday patient gained about 3 pounds of weight. She has chronic lymphedema. But thinks edema is slightly worse. Daughter also wants her mom to be active with physical therapy because she does not want her to go to rehab. Also recommends skin barrier cream. Also recommend to take her to bathroom every 2-3 hours during the morning to micturate and also get the chance to ambulate. And also requesting to place her on lower bed so she can easily get up. Past medical history. As mentioned above. Past surgical history. Bilateral total knee replacements. Lithotripsy. Excision of seborrheic keratosis on the left breast. Laparoscopic cholecystectomy. Total hysterectomy. Social history. . Lives at home with 24 hours care. No smoking. No alcohol use. No drug use. Family history. Mother had diabetes. [place]. Hypertension. Father had bladder cancer. Allergies Allergy/AdvReac Type Severity Reaction Status Date / Time aspirin Allergy Intermediate Hives, Verified 12/09/23 21:28 shortness of breath ibuprofen Allergy Intermediate Rash, hives Verified 12/09/23 21:28 Penicillins Allergy Intermediate Rash, hives Verified 12/09/23 21:28 adhesive Allergy Mild Reddened Verified 12/09/23 21:28 and sore skin morphine AdvReac Severe BLACKED OUT Verified 12/09/23 21:28 ciprofloxacin AdvReac Intermediate DIZZINESS/H Verified 12/09/23 21:28 OARSE/DISOR IENTED sulfamethoxazole AdvReac Intermediate NAUSEA/VOMI Verified 12/09/23 21:28 [From Bactrim] TING/DIZZIN ESS trimethoprim [From Bactrim] AdvReac Intermediate NAUSEA/VOMI Verified 12/09/23 21:28 TING/DIZZIN ESS prednisone AdvReac Mild CONFUSION/BLURRED Verified 12/09/23 21:28 VISION/WEAKNESS Home Medications Medication Instructions Recorded Confirmed Type d-mannose 500 mg capsule 1,000 mg PO AMPM 10/22/22 12/09/23 History mirabegron 25 mg tablet,extended 25 mg PO QAM 10/22/22 12/09/23 History release 24 hr (Myrbetriq) omeprazole 20 mg capsule,delayed 20 mg PO DAILYBB 10/22/22 12/09/23 History release spironolactone 25 mg tablet 12.5 mg PO QAM 10/22/22 12/09/23 History (Aldactone) torsemide 20 mg tablet See Rx Instructions .Route .COMPLEX 10/22/22 12/09/23 History Lactobacillus acidophilus 10 10,000 mmu cells PO .QAFTERNOON 03/21/23 12/09/23 History billion cell capsule (Probiotic) bisacodyl 5 mg tablet,delayed 10 mg PO DAILY PRN Constipation 03/21/23 12/09/23 History release (Dulcolax (bisacodyl)) cholecalciferol (vitamin D3) 25 1,000 unit PO .QAFTERNOON 03/21/23 12/09/23 History mcg (1,000 unit) capsule clotrimazole 1 % topical cream 1 applic topical DAILY affected 03/21/23 12/09/23 History area colchicine 0.6 mg tablet 0.6 mg PO BID PRN gout attacks 03/21/23 12/09/23 History cyanocobalamin (vitamin B-12) 1,000 mcg PO .QAFTERNOON 03/21/23 12/09/23 History 1,000 mcg tablet (Vitamin B-12) dulaglutide 0.75 mg/0.5 mL 0.75 mg subcut WK 03/21/23 12/09/23 History subcutaneous pen injector (Trulicity) glucosamine-chondroitin 500 mg-400 1 tab PO AMPM 03/21/23 12/09/23 History mg tablet levothyroxine 88 mcg tablet 88 mcg PO DAILYBB 03/21/23 12/09/23 History magnesium oxide 400 mg (241.3 mg 400 mg PO .QAFTERNOON 03/21/23 12/09/23 History magnesium) tablet meclizine 25 mg tablet 25 mg PO TID PRN Dizziness 03/21/23 12/09/23 History metoprolol succinate 25 mg 12.5 mg PO QPM 03/21/23 12/09/23 History tablet,extended release 24 hr (Toprol XL) potassium chloride 20 mEq 20 meq PO AMHS 03/21/23 12/09/23 History tablet,extended release(part/cryst) promethazine-DM 6.25 mg-15 mg/5 mL 5 ml PO QID PRN persistant cough 03/21/23 12/09/23 History oral syrup benzonatate 100 mg capsule 100 mg PO TID PRN Cough 12/09/23 12/09/23 History conjugated estrogens 0.625 mg/gram 1 applic vaginal HS 12/09/23 12/09/23 History vaginal cream (Premarin) docusate sodium 100 mg capsule 100 mg PO BID 12/09/23 12/10/23 History glycerin 0.5 % eye drops (Biotrue See Rx Instructions .Route .COMPLEX 12/09/23 12/09/23 History Hydration Boost) metolazone 2.5 mg tablet 2.5 mg PO DAILY PRN FLUID 12/09/23 12/09/23 History RETENTION/LAST RESORT nitrofurantoin 100 mg PO HS 12/09/23 12/09/23 History monohydrate/macrocrystals 100 mg capsule (Macrobid) ondansetron HCl 4 mg tablet 4 mg PO Q6H PRN NAUSEA/VOMITING 12/09/23 12/09/23 History sulfamethoxazole 800 1 tab PO BID 12/09/23 12/09/23 History mg-trimethoprim 160 mg tablet Past Med/Surg History Medical History (Updated 12/10/23 @ 02:18 by Asif Pride MD) Acute on chronic heart failure with preserved ejection fraction (HFpEF) Dizziness Lactic acidemia Acute UTI CHF (congestive heart failure) UTI due to extended-spectrum beta lactamase (ESBL) producing Escherichia coli Hypoxia Pneumonia Diabetes mellitus, type II Lymphedema Pacemaker History of recurrent UTIs Arthritis LBBB (left bundle branch block) Vertigo Systolic heart failure Hypothyroidism NICM (nonischemic cardiomyopathy) Surgical History History of hysterectomy Hx of cholecystectomy History of knee replacement, total Family History Other Diabetes Heart disease Hypertension Social History Smoking Status: Never smoker Second Hand Exposure: No; Do You Dip or Chew Tobacco: No; Hx Alcohol Use: No Hx Substance Use: No Preferred Language: [place] Communication Ability: Effective Client Delivery Specialist Required: No Beliefs That Will Affect Care: None marital status: / Current Living Situation: Family Current Living Situation Comment: has 17/03 help at home current occupational status: retired How many Children do You have: 1 Other Information That Helps Us Care for You: No Feels Safe at Home: Yes Safety Concerns: Feels Safe At This Time Assistive Devices: Walker Review of Systems Review of Systems: All systems reviewed & are unremarkable except as noted in HPI & below Physical Exam Physical Exam: General- Not in distress Head- atraumatic Eyes- PERRL. ENT- oropharynx clear Neck- supple, no JVD. Lungs- clear to auscultation no wheezing or crackles. Heart- regular rate and rhythm; ESM heard, no gallop. Abdomen- normal bowel sounds, soft, nontender, no distension. Extremities- chronic lower extremity lymphedema seen. No erythema seen. Neuro- alert, oriented x 3; PERRL, no facial palsy; no dysarthria; obeys simple commands. Results & Data Results & Data Vital Signs (Past 12 Hours) Vital Signs Temp Pulse Pulse Resp BP BP Pulse Ox 12/09/23 22:00 63 16 138/62 98 12/09/23 21:21 66 20 140/66 93 12/09/23 21:00 76 12/09/23 20:58 90 12/09/23 20:58 76 18 12/09/23 16:36 36.9 C 70 16 143/70 H 93 O2 Del Method O2 Flow Rate 12/09/23 22:00 Nasal Cannula 3 12/09/23 21:21 Nasal Cannula 3 12/09/23 21:00 12/09/23 20:58 Room Air 12/09/23 20:58 Room Air 12/09/23 16:36 Room Air Diagnostic Findings Laboratory Results WBC 8.89 K/ul (4.8-10.8) 12/09/23 17:55 RBC 2.68 M/uL (4.20-5.40) L 12/09/23 17:55 Hgb 10.2 g/dl (12.0-16.0) L 12/09/23 17:55 Hct 30.5 % (37.0-47.0) L 12/09/23 17:55 MCV 113.8 fL (80.0-100.0) H 12/09/23 17:55 MCH 38.1 pg (25.0-34.0) H 12/09/23 17:55 MCHC 33.4 g/dL (32.0-36.0) 12/09/23 17:55 RDW Std Deviation 57.6 fL (36.4-46.3) H 12/09/23 17:55 RDW Coeff of Jon 13.6 % (11.5-14.5) 12/09/23 17:55 Plt Count 360 K/uL (130-400) 12/09/23 17:55 MPV 9.8 fL (9.4-12.4) 12/09/23 17:55 Immature Gran % (Auto) 0.3 % 12/09/23 17:55 Neut % (Auto) 51.2 % 12/09/23 17:55 Lymph % (Auto) 36.7 % 12/09/23 17:55 Pershing % (Auto) 10.6 % 12/09/23 17:55 Eos % (Auto) 0.8 % 12/09/23 17:55 Baso % (Auto) 0.4 % 12/09/23 17:55 Neut # (Auto) 4.55 K/uL (1.40-6.50) 12/09/23 17:55 Lymph # (Auto) 3.26 K/uL (1.20-3.40) 12/09/23 17:55 Pershing # (Auto) 0.94 K/uL (0.11-0.59) H 12/09/23 17:55 Eos # (Auto) 0.07 K/uL (0.00-0.50) 12/09/23 17:55 Baso # (Auto) 0.04 K/uL (0.00-0.20) 12/09/23 17:55 Immature Gran # (Auto) 0.03 K/uL (0.01-0.20) 12/09/23 17:55 Absolute Nucleated RBC 0.07 K/uL (0.00-0.12) 12/09/23 17:55 Nucleated RBC % (auto) 0.8 % 12/09/23 17:55 Anisocytosis Present 12/09/23 17:55 Macrocytosis Present 12/09/23 17:55 Sodium 135 mmol/L (136-145) L 12/09/23 17:55 Potassium 4.0 mmol/L (3.5-5.1) 12/09/23 17:55 Chloride 99 mmol/L (98-107) 12/09/23 17:55 Carbon Dioxide 28 mmol/L (21-32) 12/09/23 17:55 Anion Gap 8 (3-11) 12/09/23 17:55 BUN 26 mg/dl (6-23) H 12/09/23 17:55 Creatinine 1.38 mg/dl (0.6-1.2) H 12/09/23 17:55 Est Cr Clr Drug Dosing Not Reportable 12/09/23 17:55 Est GFR ( Amer) 39.5 ml/min 12/09/23 17:55 Est GFR (Non-Af Amer) 34.1 ml/min 12/09/23 17:55 BUN/Creatinine Ratio 18.8 (10-20) 12/09/23 17:55 Glucose 170 mg/dl (70-99(Fasting)) H 12/09/23 17:55 Lactate 1.8 mmol/L (0.4-2.0) 12/09/23 20:57 Calcium 9.8 mg/dl (8.6-10.3) 12/09/23 17:55 Magnesium 2.1 mg/dl (1.7-2.4) 12/09/23 17:55 Total Bilirubin 0.4 mg/dl (0.2-1.0) 12/09/23 17:55 Direct Bilirubin 0.1 mg/dl (0-0.2) 12/09/23 17:55 AST 13 U/L (13-39) 12/09/23 17:55 ALT 7 U/L (7-52) 12/09/23 17:55 Alkaline Phosphatase 105 U/L (34-104) H 12/09/23 17:55 Troponin I High Sens 12.8 pg/ml (0-14) 12/09/23 17:55 B-Natriuretic Peptide 472 pg/ml (0-100) H 12/09/23 20:57 Total Protein 7.8 gm/dl (6.0-8.3) 12/09/23 17:55 Albumin 4.2 gm/dl (3.4-5.0) 12/09/23 17:55 Procalcitonin 0.03 ng/ml (0-0.5) 12/09/23 17:55 Urine Color Yellow 12/09/23 17:42 Urine Appearance Clear (Clear) 12/09/23 17:42 Urine pH 6.0 (4.5-7.5) 12/09/23 17:42 Ur Specific [place] 1.010 (1.000-1.030) 12/09/23 17:42 Urine Protein Negative (Negative) 12/09/23 17:42 Urine Glucose (UA) Negative (Negative) 12/09/23 17:42 Urine Ketones Negative (Negative) 12/09/23 17:42 Urine Blood Negative (Negative) 12/09/23 17:42 Urine Nitrite Negative (Negative) 12/09/23 17:42 Urine Bilirubin Negative (Negative) 12/09/23 17:42 Urine Urobilinogen Negative (Negative) 12/09/23 17:42 Ur Leukocyte Esterase Negative (Negative) 12/09/23 17:42 Impressions Chest X-Ray 12/09/23 16:39 SINGLE VIEW CHEST CLINICAL HISTORY: Sepsis. FINDINGS: An AP, portable, upright chest radiograph is compared to study dated 03/20/2023 and correlated with chest CT dated 10/22/2022. A 3-lead cardiac pacemaker is unchanged in position. The heart is enlarged but noting a therosclerotic calcification of the thoracic aorta. There is pulmonary vascular congestion. Chronic interstitial thickening is similar to previous. There is bibasilar scarring/atelectasis. No airspace consolidation or large pleural effusion is identified. No pneumothorax is seen. The skeletal structures are osteopenic. The bony thorax is grossly intact. Arthritic change is seen in the shoulders. Calcific tendinopathy is noted on the left. IMPRESSION: 1. Cardiomegaly and cardiac pacemaker with pulmonary vascular congestion. 2. No airspace consolidation or pleural effusion is identified. ACT 112: Negative or not required by law. Electronically signed by: Nigel Virgen M.D. 12/09/2023 7:08 PM Code Status & VTE Plan VTE Prophylaxis Plan VTE Prophylaxis will be ordered: Yes
--- OUTSIDE RECORDS SUMMARY | 2023-12-10 00:28 | External Medical Summary | Summary of Care ---
Author Name Unknown Organization [facility] Address [address] [place] [address] Phone [phone] Care Team Providers Care Leader Assembler Name Role Phone Verónica Benavides MD Primary Care Provide r Reason for Visit * Reason Onset Date Comments [facility]: Acute 12/09/2023 Encounter Details Date Type Department Care Team (Late st Contact Info) Description 12/09/2023 Telephone [facility], [facility] [address] [place] [address] [facility], Nurse [facility] [address] [place] [address] [facility]: Acute Allergies Active Allergy Reactions Criticality Noted Date Comments Adhesive Tape Medium 01/30/2022 Ibuprofen Hives 01/13/2012 Aspirin Hives,Rash 09/15/2000 Sulfamethoxazole-Trimeth oprim Nausea/vomiting,Othe r (Please comment) 10/27/2020 Dizziness Ciprofloxacin Hcl 06/16/2019 Hoarse, dizzy,disoriented Morphine 09/21/2021 Blacked out Penicillins Hives,Rash 09/15/2000 Prednisone 12/30/2017 Weakness/memory changes/blurred vision documented as of this encounter (statuses as of 12/09/2023) Medications Medication Sig Dispensed Refills Start Date End Date Status STOOL SOFTENER 100 MG PO TABS 3-4 tabs daily as needed 0 Active GLUCOSAMINE CHONDR 500 COMPLEX PO CAPS Take by mouth 2 times a day. 0 Active MAGNESIUM OXIDE 400 MG PO TABS one pill each day 0 10/20/2014 Active Acetaminophen (APAP) 325 MG Tablet Take 1 Tablet by mouth every 6 hours as needed. 0 Active OneTouch Verio w/Device Kit Use up to 4 times a day E11.9 1 Kit 0 08/28/2020 Active Cyanocobalamin 1000 MCG Oral Tablet (Cyanocobalamin) Take 1 Tablet by mouth in the morning. 0 08/08/2021 Active Nystatin 481560 UNIT/GM External Powder (Nystop)Indications: Lydia rash of groin Apply topically to affected area 2 times a day . 60 g 11 01/03/2022 Active Additional Information Patient not taking.Reported on 10/22/2023 Probiotic Acidophilus BioBeads Oral Capsule Take 1 Capsule by mouth every evening. Just with antibiotics 0 Active D-Mannose 500 MG Oral Capsule Take by mouth 2 times a day. 2 caps two times daily 0 Active Vitamin D-3 25 MCG (1000 UT) Oral Capsule Take 1 Capsule by mouth in the morning. 0 Active Docusate Sodium 50 MG/5ML Oral Liquid (Colace) Place 10 gtts to each ear for 30 min then irrigate. 120 mL 3 11/29/2022 Active Additional Information Patient not taking.Reported on 10/22/2023 Bisacodyl 5 MG Oral Tablet Delayed Release Take 2 Tablets by mouth daily as needed for Constipation. Do not use for more than one week. Do not cut, crush or chew 40 Tablet 1 01/24/2023 Active Metoprolol Succinate ER 25 MG Oral Tablet Extended Release 24 Hour (toPROL XL)Indications:Non-i schemic cardiomyopathy (HCC),Coronary artery disease involving [place] coronary artery of [place] heart without angina pectoris,HTN, goal below 140/90 Take 1 Tablet by mouth every evening. 90 Tablet 11 02/27/2023 Active Spironolactone 25 MG Oral Tablet (Aldactone)Indicatio ns:Non-ischemic cardiomyopathy (HCC) Take 0.5 Tablets by mouth in the morning. 45 Tablet 3 02/27/2023 Active metOLazone 2.5 MG Oral Tablet (Zaroxolyn) Take one tablet only when directed by clinician. 5 Tablet 0 03/12/2023 Active Benzonatate 100 MG Oral Capsule Take 1 Capsule by mouth 3 times a day as needed for Cough. 30 Capsule 1 04/29/2023 Active OneTouch Verio In Vitro Strip (Glucose Blood)Indications:Ty pe 2 diabetes mellitus with stage 3 chronic kidney disease, without long-term current use of insulin (HCC),Type 2 diabetes mellitus with hemoglobin A1c goal of less than 8.0% ([facility]) TEST UP TO FOUR TIMES DAILY 400 Strip 1 05/30/2023 Active Colchicine 0.6 MG Oral Tablet Take one twice for gout attack 8 Tablet 0 06/03/2023 Active Fosfomycin Tromethamine 3 GM Oral Packet (Monurol)Indications :Complicated UTI (urinary tract infection) Take 3 g by mouth every 3 days. 3 Packet 0 06/04/2023 Active Additional Information Patient not taking.Reported on 10/22/2023 Promethazine-DM 6.25-15 MG/5ML Oral Syrup Take 5 mL by mouth 4 times a day as needed for Cough. 120 mL 1 06/16/2023 Active Myrbetriq 25 MG Oral Tablet Extended Release 24 Hour (Mirabegron ER) Take 1 Tablet by mouth in the morning. 90 Tablet 3 07/08/2023 Active OneTouch Delica Plus [id number] :Type 2 diabetes mellitus with hemoglobin A1c goal of less than 8.0% ([facility]) Test up to two times daily or as directed by [facility] pharmacist 200 Each 3 07/11/2023 Active Estrogens Conjugated 0.625 MG/GM Vaginal Cream (Premarin) Administer 0.5 g into the vagina every night at bedtime. Pea-sized amount around vulvar area nightly 30 g 5 07/14/2023 Active Omeprazole 20 MG Oral Capsule Delayed Release (PriLOSEC) TAKE ONE CAPSULE BY MOUTH EVERY DAY, ONE hour BEFORE THE first meal of THE DAY 90 Capsule 1 08/11/2023 Active Levothyroxine Sodium 88 MCG Oral Tablet (Levoxyl)Indications :Hypothyroidism, unspecified type TAKE ONE TABLET BY MOUTH EVERY MORNING 30 MINS PRIOR TO FIRST MEAL OF THE DAY OR OTHER MEDS 90 Tablet 3 08/11/2023 Active Nitrofurantoin Monohyd Macro 100 MG Oral Capsule (Macrobid) Take 1 Capsule by mouth at bedtime. With food. 90 Capsule 3 10/08/2023 Active Trulicity 0.75 MG/0.5ML Subcutaneous Solution Pen-injector (Dulaglutide) Inject 0.75 mg under the skin once a week. 2 mL 3 10/15/2023 Active Clotrimazole 1 % External Cream (Lotrimin)Indication s:Candidal intertrigo APPLY TO THE AFFECTED AREA(S) TWICE DAILY FOR FOURTEEN DAYS 60 g 2 10/22/2023 Active Additional Information Patient not taking.Reported on 10/22/2023 Potassium Chloride Laura ER 20 MEQ Oral Tablet Extended Release Take 1 Tablet by mouth 2 times a day with morning and evening meals. 180 Tablet 1 11/21/2023 Active Torsemide 20 MG Oral Tablet (Demadex)Indications :Heart failure, systolic, due to idiopathic cardiomyopathy (HCC) Take 60 mg by mouth in the morning, 40 mg by mouth in the afternoon. Additional 20 mg in the afternoon ONLY if directed by health care provider for weight gain of 3 lbs or more. 180 Tablet 3 11/28/2023 Active DIURETIC TITRATION PLAN If no improvement on day 3, contact [facility] for possible home visit 1 Each 0 11/28/2023 Active Meclizine HCl 25 MG Oral Tablet (Antivert)Indication s:Vertigo Take 1 tablet by mouth 3 times a day as needed for dizziness 30 Tablet 5 11/28/2023 Active Ondansetron HCl 4 MG Oral Tablet Take 1 Tablet by mouth every 6 hours as needed for Nausea. 20 Tablet 0 12/03/2023 Active Sulfamethoxazole-Tri methoprim 800-160 MG Oral Tablet (Bactrim DS) Take 1 Tablet by mouth in the morning and 1 Tablet before bedtime. Do all this for 7 days. Until gone. 14 Tablet 0 12/03/2023 4 Active documented as of this encounter (statuses as of 12/09/2023) Active Problems Problem Noted Date Diagnosed Date 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/26/2023 Transient confusion 01/30/2023 Last Assessment & Plan: Patient has been progressively more confused over the last week despite treatment with Keflex 500 mg three times daily for urinary tract infection. Urine still is cloudy. It is possible that the UTI persists. Will do an infectious workup. -BMP, CBC, UA, stool studies Acute cystitis without hematuria 01/24/2023 Last Assessment & Plan: Pt symptomatic with weakness, dysuria, some nausea, murky urine -Will increase and extend keflex Bilateral impacted cerumen 11/29/2022 Last Assessment & Plan: Attempted question ears today with minimal success -prescription for Colace liquid. Ten drops to ears bilaterally daily. Allowed to sit for at least 30 minutes. Flush years afterwards with warm water. Constipation 11/29/2022 Last Assessment & Plan: Improving -continue current regimen Impaired mobility and ADLs 11/12/2022 Ventral hernia without obstruction or gangrene 1 10/08/2020 Trochanteric bursitis of right hip 07/10/2021 History of recurrent UTI (urinary tract infectio n) 07/09/2021 Last Assessment & Plan: Currently on cipro for UTI. -continue mybetriq -urology appointment coming up in february -continue to monitor Morbid obesity with BMI of 45.0-49.9, adult 12/2020 ESBL E. 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 Last Assessment & Plan: [facility] Triage Call: Reviewed last C&S - treated initially w/ Fosfomycin x 3 doses and then subsequently with Macrobid. Typically Fosfomycin would have covered it - although Macrobid listed as sensitive, not ideal for ESBL. 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 There was normal sinus rhythm during the examination. The LV wall thickness is moderately increased (concentric). There is mild diffuse left ventricular hypokinesis. Calculated LV ejection Fraction = 50% (three dimensional volumes, lower limit of normal). The left atrium is mildly enlarged. Moderate aortic valve stenosis is present. Mild aortic valve regurgitation is present. The aortic root diameter is normal. The proximal ascending aorta is not visualized well enough to allow measurement. Compared to the previous study dated 11/02/2020, there has been no significant interval change. Left Ventricle Calculated LV ejection Fraction = 50% (three dimensional volumes). The left ventricular cavity size is normal. The LV wall thickness is moderately increased (concentric). There is no left ventricular mural thrombus. Left Ventricular Wall Motion There is mild diffuse left ventricular hypokinesis. Right Ventricle The right ventricular cavity size is normal (basal dimension < 4.2 cm RV apical 4 chamber view). The right ventricular systolic function is normal as assessed by tricuspid annular plane systolic excursion (TAPSE) (normal >1.7 cm). An intracardiac device lead is noted in the right ventricle. Atria The left atrium is mildly enlarged. The right atrial size is normal. Diastolic Function The left ventricular diastolic function is mildly abnormal (grade I). Last Assessment & Plan: Current Status: Actively exacerbating Degree of Condition Awareness: Demonstrates very good awareness of condition, disease course, and prognosis "RED FLAG" HF Symptoms: o Increased dyspnea on exertion (Example: "I can't walk to the kitchen or up the stairs") o Increased shortness of breath at rest (Example: "I struggle to breathe even when watching TV") Current Heart Failure Classifications: o With less than ordinary activity ([employer] CLASS III) Diagnostic Review: Recent Labs Units 12/11/22 0947 12/05/22 1541 11/01/22 0618 10/28/22 0628 06/21/22 0942 05/24/22 1052 LEFT VENTRICULAR EJECTION FRACTION % -- 50 -- -- -- -- BNP (NT-PRO-BNP) - [facility] pg/mL -- -- -- -- -- 380* ESTIMATED GLOMERULAR FILTRATION RATE - [facility] mL/min 53* -- < > 50* < > 48* HGB - [facility] g/dL -- -- -- 10.3* < > -- < > = values in this interval not displayed. Medication Regimen: o Beta Berta Therapy: Metoprolol Succinate (ER) o MARIO Inhibitor/ARB Therapy: Other: none o Diuretic therapy: Torsemide Aldactone Self - Management Plan o Other/Additional Comments: additional torsemide 20 mg in afternoon x 3 days Exacerbation Plan o Anticipated IV Lasix dose: 80 mg Initiate DTP today. 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 There was normal sinus rhythm during the examination. The LV wall thickness is moderately increased (concentric). There is mild diffuse left ventricular hypokinesis. Calculated LV ejection Fraction = 50% (three dimensional volumes, lower limit of normal). The left atrium is mildly enlarged. Moderate aortic valve stenosis is present. Mild aortic valve regurgitation is present. The aortic root diameter is normal. The proximal ascending aorta is not visualized well enough to allow measurement. Compared to the previous study dated 11/02/2020, there has been no significant interval change. 05/04/21 Heart failure, systolic, due to idiopathic cardi omyopathy 06/05/2016 Non-ischemic cardiomyopathy 03/15/2016 Last Assessment & Plan: Continue synthroid Coronary artery disease invo lving [place] coronary artery of [place] heart without angina pectoris 07/03/2012 Overview: 60% diagonal per catheterization 03/2012 Last Assessment & Plan: Stable. No angina. -continue Toprol and diuretics. Was on lisinopril. Was taken off due to low BP. Allergy to ASA. Exertional dyspnea 03/31/2012 Aspirin allergy 03/31/2012 LBBB (left bundle branch block) 03/31/2012 First degree atrioventricular block 03/31/2012 DYSLIPIDEMIA, GOAL LDL BELOW 100 08/03/2009 Overview: Per Lipid Taxonomy. Hypothyroidism 01/01/2008 Last Assessment & Plan: TSH stable continue synthroid GENERAL OSTEOARTHROSIS 03/03/2003 ACEI/ARB contraindicated Type 2 diabetes mellitus wit h hemoglobin A1c goal of less than 8.0% Overview: Diabetes Type II, Controlled ICD-10 update of inactive term Last Assessment & Plan: Current Status: Actively exacerbating Degree of Condition Awareness: Demonstrates very good awareness of condition, disease course, and prognosis "RED FLAG" Diabetic symptoms: o none Goal HgbA1c o <7 Diabetic Complications o Vascular (examples: PVD, PAD, CAD, CVA) Medication Regimen o Lifestyle Modification / Monitoring ONLY DM Secondary Prevention o Moderate-High Intensity Statin o Aspirin BS high right now likely due to infection documented as of this encounter (statuses as of 12/09/2023) Resolved Problems Problem Noted Date Diagnosed Date Resolved Date Stage 3a chronic kidney disease 07/03/2020 10/05/2020 Overview: Per CKD protocol Hypertensive heart disease w ith systolic heart failure and stage 3a chronic kidney disease 07/03/2020 11/28/2020 Overview: Per CKD protocol Type 2 diabetes mellitus wit h diabetic peripheral angiopathy without gangrene 03/07/2020 0 11/28/2020 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/09/201910/23 Morbid obesity with BMI of 45.0-49.9, adult 02/11/2019 07/09/2019 Body mass index (BMI) of 45. 0 to 49.9 in adult 06/01/2018 02/23/2019 Overview: Per Obesity protocol #1 Asymptomatic bacteriuria 05/28/2018 Generalized weakness 05/27/2018 018 Hypertensive heart disease w ith systolic heart failure and stage 3 chronic kidney disease 05/15/2018 07/06/2020 Overview: Per CKD protocol Hypertensive heart disease, benign w/chronic kidney disease stage 1-4 04/30/2018 05/15/2018 Trigger little finger of right hand 11/17/2017 04/30/2018 Carpal tunnel syndrome of right wrist 11/17/2017 04/30/2018 BMI 45.0-49.9, adult 03/26/2017 018 Kidney disease, chronic, sta ge III (GFR 30-59 ml/min) 09/02/2016 07/06/2020 Overview: Per CKD protocol #1 Actinic keratosis 06/24/2016 04/30/2018 HTN, goal below 140/90 11/09/201209/06 Seronegative arthropathy of multiple sites 08/19/2012 04/30/2018 Near syncope 03/31/2012 07/28/2015 Adult body mass index 50.0-59.9 12/20/2010 03/26/2017 Obesity, morbid (more than 1 00 lbs over ideal weight or BMI > 40) 11/21/2009 05/15/2018 Overview: Per Obesity Taxonomy ICD-10 update of inactive term Ventral hernia, unspecified, without mention of obstruction or gangrene 10/13/2009 04/30/2018 ACTIVE CASE MANAGEMENT 07/26/200906/11 Overview: Marcela Dixon RN Arthritis, rheumatoid 06/30/20092011 Overview: Seronegative Type 2 diabetes mellitus wit h hemoglobin A1c goal of less than 7.0% 06/22/2009 02/21/2010 Overview: Per Diabetes Taxonomy. ICD-10 update of inactive term Polyarthropathy or polyarthr itis of multiple sites 12/30/2008 06/30/2009 Overview: ICD-10 update of inactive term DIVERTICULOSIS OF COLON 03/21/200401/2018 Calculus of kidney 09/15/2003 8 Hypercalcemia 01/24/2003 07/28/2015 Dyslipidemia, goal to be determined 04/05/2002 08/03/2009 Overview: Per Lipid Taxonomy. OBESITY, UNSPECIFIED 010 Overview: Per Obesity Taxonomy Diverticulitis of colon 01/2018 Esophageal reflux 04/30/2018 Type 2 diabetes mellitus wit h hemoglobin A1c goal of less than 7.0% 06/22/2009 Overview: Per Diabetes Taxonomy. ICD-10 update of inactive term Impaired glucose tolerance 0 04/30/2018 documented as of this encounter (statuses as of 12/09/2023) Immunizations Name Administration Dates Next Due COVID-19 mRNA, LNP-s, No Pre serve, 2-Dose Series (SetuServ) 08/29/2021,10/23/2020,10/02/2020 COVID-19, MRNA-LNP, 23-24, P F, 30 MCG/0.3 mL, 12 YRS AND ABOVE, IM ([employer]) 08/04/2023 Covid-19, Mrna, Lnp-s, Pf, B ivalent, 30 Mcg, IM, 12 yrs and above (Pfizer) 08/02/2022 Influenza, Whole Virus 08/07/2000 Pneumococcal Conjugate Vacc, 13 Valent (Prevnar) 09/11/2015 Pneumococcal Polysaccharide PPV23 (Pneumovax) 05/25/2008,06/23/2001 Season Influenza, Quad, PF, Adjuvanted, 65+ Yrs, IM (FLUAD) 06/06/2020 Seasonal Influenza Virus Vac cine, Unspecified Formulation 06/04/2019,04/30/2018,06/05/2017,05/25,05/23/2017,08/12/2016,04/22/2014 ,05/17/2013,04/29/2012,06/21/2011,10/2009,05/31/2009,07/01/2008, 7,08/08/2006,06/21/2005,07/05/2003,06/2002,06/23/2001,08/07/2000 Seasonal Influenza, PF, 6 M & above, IM , (FluLaval or Fluzone) 06/04/2019,04/30/2018 Seasonal Influenza, Quadriva lent Hd (Fluzone Hd) 06/20/2022,06/29/2021 Seasonal Influenza, Quadriva lent, No Preserve, IM 05/25/2017,08/12/2016,07/28/2015 Seasonal Influenza, Split, I IV3, With Preserve, Inj 04/22/2014,05/17/2013,04/29/2012,06/21,05/27/2010,05/31/2009,07/01/2008 ,06/16/2007,08/08/2006,06/21/2005,06/25,07/05/2002,06/23/2001 TD - Tetanus/Diptheria (ADULT) 03/29/2008 TD, Preservative Free 03/29/2008 TDAP (age 10 and older)(Boostrix) 11/15/2013 documented as of this encounter Social History Tobacco Use Types Packs/Day Years Used Date Smoking Tobacco: Never Smokeless Tobacco: Never Alcohol Use Standard Drinks/Week Comments No 0 (1 standard drink = 0.6 oz pur e alcohol) PHQ-2 Answer Date Recorded PHQ-2 Score 0 05/24/2019 Sex and Gender Information Value Date Recorded Sex Assigned at Not on file Gender Identity Not on file Sexual Orientation Not on file Job Start Date Occupation Industry Not on file Not on file Not on file documented as of this encounter Miscellaneous Notes * Addendum Note - Libia Sanchez MD - 12/09/2023 11:00 AM EDTAddended by: LIBIA SANCHEZ on: 12/09/2023 11:00 AM Modules accepted: Orders * Telephone Encounter - Libia Sanchez MD - 12/09/2023 10:56 AM EDT [facility] [employer] QuickNote [facility] Subprogram: [facility] at Home Recommendations: Remember initial urine culture and again reviewed patient with ESBL E coli. The Bactrim was used asa last effort to keep the patient from the hospital but concern that true resolution of symptoms especially now with worsening behaviors would require IV antibiotics unfortunately only available inpatient. We can repeat UA and culture at present but if UA positive and especially if culture showing recurrent ESBL organism patient should seek inpatient care for IV antibiotics. In the interim, any worsening lethargy somnolence fevers should prompt more urgent ED evaluation given concern for not optimally treated known ESBL UTI and to rule out things like bacteremia. Orders: No orders of the defined types were placed in this encounter. To Do: Please see below for follow up items to be completed and correspondence: JUNIOR to Regla's Care Team work order clerk Pool please work on the following: contact the caller with advice and orders as above Libia Sanchez MD [facility] - [facility] 12/09/2023 Scheduled appointments in the next 60 days: Future Appointments-next 60 days Date/Time Provider Specialty Dept Phone 12/10/2023 12:30 PM Coordinator, [facility] [phone] 12/17/2023 10:00 AM Romel Mcclelland, Ophthalmology [phone] 12/23/2023 10:00 AM Destiny Schultz RN [facility] [phone] 03/30/2024 3:40 PM (Arrive by 3:25 PM) Verónica Benavides MD Family Medicine [phone] 04/21/2024 10:30 AM Chandler Pena MD Urology [phone] 11/24/2024 1:40 PM (Arrive by 1:25 PM) Sheryl Pena PA-C Dermatology [phone] * Telephone Encounter - Nanci Leiva RN - 12/09/2023 10:38 AM EDT [facility] work order clerk Acute Call Date: 12/09/2023 Time: 10:39 AM Name: Regla Castano : 1935 Caller: Josselyn Relationship to : daughter Chief Complaint [facility] with [facility]: Acute HPI: Regla Castano is a 88 year old female who is calling [employer] [facility] to report she is not sure what is going on with her mother Had a UTI, started on Bactrim 12/02. Today is last dose Urine "looks better", not able to provide any more specific info when asked However, patient is "much weaker", more confused then before antbx started, demeanor has changed ( slumping in chair, difficulty getting up from chair and now c/o knee pain , giving nanny caregiver a hardtime, doesn't remember things that have occurred or people who were there) Afebrile Eating/drinking well, urine not concentrated Weight up over last week, was 233-234, today 239. 1 week ago, she had 3 days of double Torsemide, weight down, back up again. No swelling or SOB noted She had a Dulcolax w stimulant yesterday, + BM afterward. Patient takes daily maintenance dose of Macrobid ordered by Urology Daughter asking if repeat urine needed ( she had some of these symptoms prior to starting Bactrim ). Can this be side effect of Bactrim, (she has had side effects from it before) ROS: Patient Active Problem List Diagnosis Code GENERAL OSTEOARTHROSIS M15.9 Hypothyroidism E03.9 DYSLIPIDEMIA, GOAL LDL BELOW 100 E78.5 Exertional dyspnea R06.09 Aspirin allergy Z88.8 LBBB (left bundle branch block) I44.7 First degree atrioventricular block I44.0 Coronary artery disease involving [place] coronary artery of [place] heart without angina pectoris I25.10 ACEI/ARB contraindicated [id number] Type 2 diabetes mellitus with hemoglobin A1c goal of less than 8.0% ([facility]) E11.9 Non-ischemic cardiomyopathy ([facility]) I42.8 Heart failure, systolic, due to idiopathic cardiomyopathy ([facility]) I50.20, I42.9 Aortic valve stenosis I35.0 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 Type 2 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 disease, without long-term current use of insulin ([facility]) E11.22, N18.31 Lymphedema of both lower extremities I89.0 Benign paroxysmal vertigo of both ears H81.13 Gastroesophageal reflux disease without esophagitis K21.9 Type 2 diabetes mellitus with mild nonproliferative diabetic retinopathy without macular edema, right eye (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) I13.0, I50.22, N18.32 Morbid obesity with BMI of 45.0-49.9, adult ([facility]) E66.01, Z68.42 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 History of recurrent UTI (urinary tract infection) Z87.440 Trochanteric bursitis of right hip M70.61 Ventral hernia without obstruction or gangrene K43.9 Impaired mobility and ADLs Z74.09, Z78.9 Bilateral impacted cerumen H61.23 Constipation K59.00 Acute cystitis without hematuria N30.00 Transient confusion R41.0 Postmenopausal atrophic vaginitis N95.2 FREQUENT UTI's with urine labs 1-2 x per month Nursing Assessment: Patient's chief complaint for this call: Other, describe Multi: confusion, weakness, demeanor, wt increase, Pain Denies pain Baseline Assessment Able to performing ADLs at baseline (walking, daily tasks, etc.): Unknown Chief Complaint is related to a chronic condition: Unknown Patient prescribed oxygen? No Patient has been ordered DME equipment (assistive devices, respiratory equipment, etc.): No Medication Reconciliation: Received flu shot this season: Yes Taking medication as ordered: Yes Medications ordered/taking to treat reason for call: No Heart failure symptoms: No COPD exacerbation symptoms: No Reinforcement Education: Take all medications as ordered Completed Bactrim today Fluids for hydration and avoid urine concentration. Tylenol prn pain/fever Assist patient with change in position/ambulation to avoid falls Routed to [facility] and Dr Pena, Urology, [facility] ( at daughter's request) Treatment/Plan: Level of call: Acute Appointment scheduled for same day: No Follow up call set Liliam Leiva RN, BSN [facility] Intake Triage Coordinator [phone] Call back instructions provided to patient. documented in this encounter Plan of Treatment Upcoming Encounters Date Type Department Care Team (Late st Contact Info) Description 12/10/2023 12:30 PM EDT Scheduled Telephone [facility] at [place], [facility] [address] [place] [address] Coordinator, [facility] [address] [place] [address] 12/17/2023 10:00 AM EDT Office Visit Ophthalmology, [facility] [address] [facility] [place] [address] Romel [facility]cclelland[facility] [address] 12/23/2023 10:00 AM EDT [facility] Visit [facility], [facility] [address] [facility] [place] [address] Destiny Schultz, POPPY 132 [place] [address] 03/30/2024 3:40 PM EDT Office Visit Family Medicine [address] [place] [phone] Verónica Benavides MD [address] [place] [address] [place] [id number] 04/21/2024 10:30 AM EDT Telemedicine Urology, [facility] [address] [facility] [place] [address] Chandler Pena MD [address] [place] [address] [place] [address] 11/24/2024 1:40 PM EDT Office Visit Dermatology [address] [place] [address] Sheryl Pena PA-C [address] [place] [address] [place] [address] Scheduled Orders Name Type Priority Associated Diagnoses Orde r Schedule URINALYSIS, REFLEX TO CULTURE (NOT FOR NEUTROPENIC PATIENTS) Lab Routine UTI symptoms Expected: 12/09/2023, Expires: 12/08/2024 Health Maintenance Due Date Last Done Comments Zoster Vaccines (1 of 2) 1985 DXA Scan 04/02/2020 04/02/2017, 12/24, 11/05/2007 Depression Screening 05/24/2020 05/24/2019 Diabetic Foot Exam 11/08/2020 11/09/2019, 0 09/01/2018, 08/28/2017, Additional history exists HbA1c 08/13/2023 02/11/2023, 10/23, 01/11/2022, Additional history exists DTaP,Tdap,and Td Vaccines (2 - Td or Tdap) 11/16/2023 11/15/2013, 03/29/2008, 03/29/2008 Diabetic Eye Exam 12/22/2023 12/21/2022, , 03/10/2021, Additional history exists Albumin/Creatinine Ratio 02/08/2024 023, 01/18/2022, 12/23/2017, Additional history exists CKD PHOS USE SMARTSET 97325 02/08/202401/23, 08/07/2021, 11/09/2019, Additional history exists TSH 03/25/2024 03/25/2023, 07/0 10/2022, 10/28/2022, Additional history exists Influenza Vaccine (FLU shot) (Season Ended) 2024 06/20/2022, 06/20/2022, 06/29/2021, Additional history exists CKD HGB USE SMARTSET 42593 05/26/202405/26, 05/26/2023, 04/07/2023, Additional history exists Pneumococcal Vaccine: 65+ Years Completed 03/26/2023, 09/11/2015, 05/25/2008, Additional history exists COVID-19 Vaccine Completed 08/04/2023, 04/2022, 08/02/2022, Additional history exists GARDASIL-HPV IMMUNIZATION SERIES Aged Out No longer eligible based on patient's age to complete this topic Hepatitis B Aged Out No longer eligi ble based on patient's age to complete this topic MENINGOCOCCAL (MENACTRA/MENVEO) Aged Out No longer eligible based on patient's age to complete this topic documented as of this encounter Medical Devices Not on filedocumented as of this encounter Visit Diagnoses Diagnosis UTI symptoms- Primary Other symptoms involving urinary system documented in this encounter Additional Health Concerns 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/2023 documented as of this encounter Advance Directives Documents on File Type Date Recorded 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
--- OUTSIDE RECORDS SUMMARY | 2023-12-10 00:28 | External Medical Summary | Summary of Care ---
Author Name Unknown Organization [facility] Address [address] [place] [address] Phone [phone] Care Team Providers Care Finishing Technician Name Role Phone Verónica Benavides MD Primary Care Provide r Reason for Visit * Reason Onset Date Comments [facility]: Acute 12/09/2023 Encounter Details Date Type Department Care Team (Late st Contact Info) Description 12/09/2023 Telephone [facility], [facility] [address] [place] [address] [facility], Nurse [facility] [address] [place] [address] [facility]: Acute Allergies Active Allergy [...] in the morning. 0 08/08/2021 Active Nystatin 840108 UNIT/GM External Powder (Nystop)Indications: Lydia rash of [...] XL)Indications:Non-i schemic cardiomyopathy (HCC),Coronary artery disease involving [place] coronary artery of [place] heart without angina pectoris,HTN, goal below 140/90 [...] hemoglobin A1c goal of less than 8.0% ([facility]) TEST UP TO FOUR TIMES DAILY [...] Tablet 3 07/08/2023 Active OneTouch Delica Plus [id number] :Type 2 diabetes mellitus with hemoglobin A1c goal of less than 8.0% ([facility]) Test up to two times daily or as directed by [facility] pharmacist 200 Each 3 07/11/2023 Active [...] If no improvement on day 3, contact [facility] for possible home visit 1 Each [...] 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 Last Assessment & Plan: [facility] Triage Call: Reviewed last C&S - [...] Continue synthroid Coronary artery disease invo lving [place] coronary artery of [place] heart without angina pectoris 07/03/2012 Overview: 60% [...] mRNA, LNP-s, No Pre serve, 2-Dose Series (3DSoC) 08/29/2021,10/23/2020,10/02/2020 COVID-19, MRNA-LNP, 23-24, P F, 30 MCG/0.3 mL, 12 YRS AND ABOVE, IM ([employer]) 08/04/2023 Covid-19, Mrna, Lnp-s, Pf, B ivalent, [...] [facility] QuickNote [facility] Subprogram: Primary Care at Home Recommendations: [...] and correspondence: JUNIOR to Regla's Care Team technical sales engineer Pool please work on the following: contact the caller with advice and orders as above Libia Sanchez MD [facility] - [facility] 12/09/2023 Scheduled appointments in the next 60 days: Future Appointments-next 60 days Date/Time Provider Specialty Dept Phone 12/10/2023 12:30 PM Coordinator, [facility] Ian [facility] [phone] 12/17/2023 10:00 AM Romel Mcclelland, Ophthalmology [phone] 12/23/2023 10:00 AM Destiny Schultz RN [facility] [phone] 03/30/2024 3:40 PM (Arrive by 3:25 PM) Verónica Benavides MD Family Medicine [phone] 04/21/2024 10:30 AM Chandler Pena MD Urology [phone] 11/24/2024 1:40 PM (Arrive by 1:25 PM) Sheryl Pena PA-C Dermatology [phone] * Telephone Encounter - Nanci Leiva RN - 12/09/2023 10:38 AM EDT [facility] technical sales engineer Acute Call Date: 12/09/2023 Time: 10:39 AM Name: Regla Castano : 1935 Caller: Josselyn Relationship to : daughter Chief Complaint [facility] with [facility]: Acute HPI: Regla Castano is a 88 year old female who is calling [facility] Int[facility] to report she is [...] and now c/o knee pain , giving care transition coordinator a hardtime, doesn't remember things that have [...] atrioventricular block I44.0 Coronary artery disease involving [place] coronary artery of [place] heart without angina pectoris I25.10 ACEI/ARB contraindicated [id number] Type 2 diabetes mellitus with hemoglobin A1c goal of less than 8.0% ([facility]) E11.9 Non-ischemic cardiomyopathy ([facility]) I42.8 Heart failure, systolic, due to idiopathic cardiomyopathy ([facility]) I50.20, I42.9 Aortic valve stenosis I35.0 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 Type 2 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 disease, without long-term current use of insulin ([facility]) E11.22, N18.31 Lymphedema of both lower extremities I89.0 Benign paroxysmal vertigo of both ears H81.13 Gastroesophageal reflux disease without esophagitis K21.9 Type 2 diabetes mellitus with mild nonproliferative diabetic retinopathy without macular edema, right eye ([facility]) E11.3291 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 documented in this encounter Plan of Treatment Upcoming Encounters Date Type Department Care Team (Late st Contact Info) Description 12/10/2023 12:30 PM EDT Scheduled Telephone Ar[facility] at [place], [facility] [address] [place] [address] Coordinator, [facility] [address] [place] [address] 12/17/2023 10:00 AM EDT Office Visit Ophthalmology, [facility] 132 [facility] [address] Romel Mcclelland, [facility] [address] 12/23/2023 10:00 AM EDT Home Visit [facility], [facility] 132 [facility] [place] [address] Destiny Schultz, POPPY 132 [facility] [place] [address] 03/30/2024 3:40 PM EDT Office Visit Family Medicine [address] [place] [phone] Verónica Benavides MD [address] [place] [address] [place] [address] 04/21/2024 10:30 AM EDT Telemedicine Urology, [facility] 132 [facility] [place] [address] Chandler Pena MD [address] [place] [address] [place] [address] 11/24/2024 1:40 PM EDT Office Visit Dermatology [address] [place] [address] Sheryl Pena PA-C [address] [place] [address] [place] [address] Scheduled Orders Name Type Priority Associated Diagnoses [...] Additional history exists CKD PHOS USE SMARTSET 11689 02/08/202401/23, 08/07/2021, 11/09/2019, Additional history exists TSH 03/25/2024 03/25/2023, 07/0 10/2022, 10/28/2022, Additional history exists Influenza Vaccine (FLU shot) (Season Ended) 2024 06/20/2022, 06/20/2022, 06/29/2021, Additional history exists CKD HGB USE SMARTSET 20174 05/26/202405/26, 05/26/2023, 04/07/2023, Additional history exists Pneumococcal [...] Documents on File Type Date Recorded 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
--- OUTSIDE RECORDS SUMMARY | 2023-12-10 00:28 | External Medical Summary | Summary of Care ---
Author Name Unknown Organization [facility] Address [address] [place] [address] Phone [phone] Care Team Providers Care Elevator Tender Name Role Phone Verónica Benavides MD Primary Care Provide r Reason for Visit * Reason Onset Date Comments [facility]: Maintenance 12/04/2023 Encounter Details Date Type Department Care Team (Late st Contact Info) Description 12/04/2023 1:00 PM EDT Scheduled Telephone [facility], [facility] [address] [facility] [place] [address] Coordinator, [facility] [address] [facility] [place] [address] Allergies Active Allergy Reactions Criticality Noted Date Comments Adhesive Tape Medium 01/30/2022 Ibuprofen Hives 01/13/2012 Aspirin Hives,Rash 09/15/2000 Sulfamethoxazole-Trimeth oprim Nausea/vomiting,Othe r (Please comment) 10/27/2020 Dizziness Ciprofloxacin Hcl 06/16/2019 Hoarse, dizzy,disoriented Morphine 09/21/2021 Blacked out Penicillins Hives,Rash 09/15/2000 Prednisone 12/30/2017 Weakness/memory changes/blurred vision documented as of this encounter (statuses as of 12/04/2023) Medications Medication Sig Dispensed Refills Start Date [...] in the morning. 0 08/08/2021 Active Nystatin 424295 UNIT/GM External Powder (Nystop)Indications: Lydia rash of [...] XL)Indications:Non-i schemic cardiomyopathy (HCC),Coronary artery disease involving [place] coronary artery of [place] heart without angina pectoris,HTN, goal below 140/90 [...] hemoglobin A1c goal of less than 8.0% ([facility]) TEST UP TO FOUR TIMES DAILY 400 [...] Tablet 3 07/08/2023 Active OneTouch Delica Plus [id number] :Type 2 diabetes mellitus with hemoglobin A1c goal of less than 8.0% ([facility]) Test up to two times daily or as directed by [facility] pharmacist 200 Each 3 07/11/2023 Active Estrogens [...] If no improvement on day 3, contact [facility] for possible home visit 1 Each 0 [...] as of this encounter (statuses as of 12/04/2023) Active Problems Problem Noted Date Diagnosed Date [...] 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 Last Assessment & Plan: [facility] Triage Call: Reviewed last C&S - treated [...] Continue synthroid Coronary artery disease invo lving [place] coronary artery of [place] heart without angina pectoris 07/03/2012 Overview: 60% [...] as of this encounter (statuses as of 12/04/2023) Resolved Problems Problem Noted Date Diagnosed Date [...] as of this encounter (statuses as of 12/04/2023) Immunizations Name Administration Dates Next Due COVID-19 mRNA, LNP-s, No Pre serve, 2-Dose Series ([employer]) 08/29/2021,10/23/2020,10/02/2020 COVID-19, MRNA-LNP, 23-24, P F, 30 MCG/0.3 mL, 12 YRS AND ABOVE, IM ([employer]) 08/04/2023 Covid-19, Mrna, Lnp-s, Pf, B ivalent, 30 Mcg, IM, 12 yrs and above ([employer]) 08/02/2022 Pneumococcal Conjugate Vacc, 13 Valent (Prevnar) 09/11/2015 [...] Split, I IV3, With Preserve, Inj 04/22/2014,05/17/2013,04/29/2012,06/21,05/27/2010,05/31/2009,07/01/2008 ,06/16/2007,08/08/2006 TD - Tetanus/Diptheria (ADULT) 03/29/2008 TD, Preservative [...] as of this encounter Miscellaneous Notes * Telephone Encounter - Nanci Leiva RN - 12/04/2023 9:51 AM EDT [facility] Telephonic Nurse Follow-Up Call [facility] Subprogram: Primary Care at Home Follow Up Call Type: Routine follow up call / Status Check Acute issue requiring follow-up call: Complicated UTI Follow up if any side effects from Bactrim Objective: 11/11/2023 2:14 PM 10/31/2023 2:19 PM 10/22/2023 2:01 PM 09/10/2023 1:31 PM 07/29/2023 2:56 PM VITALS ACROSS ENCOUNTERS BP 122/64 108/60 116/74 104/76 108/68 Pulse 62 68 68 72 72 Weight 108 kg 107 kg 106.1 kg 106.1 kg BMI 44.97 kg/m2 44.59 kg/m2 44.21 kg/m2 44.21 kg/m2 Remote Patient Monitoring: NONE Oxygen Needs: NO CHANGE from baseline supplemental oxygen needs DME Needs: NO DME needs identified Medications: New medication(s) added: Bactrim, Zofran Subjective: Condition Status: Improvement in symptoms but not at baseline Current Concerns: Call to patient, spoke with daughter, Josselyn. Pt has had 2 doses of Bactrim so far. She is giving Zofran with it. No ill side effects noted. Pt actually slept very well last night, and seems to havemore spunk this morning, asking for scratch off lottery tickets Pushing fluids, she is eating OK No complaints so far Advised to call [facility] with any issues/concerns Daughter stated if she starts to have any issues, " will not hesitate to take her to ED " Disposition: Issue resolved. All appropriate follow up scheduled. Future Visits Scheduled: Future Appointments-next 60 days Date/Time Provider Specialty Dept Phone 12/04/2023 1:00 PM Coordinator, [facility] [phone] 12/05/2023 12:00 PM Coordinator, [facility] [phone] 12/17/2023 10:00 AM Romel Mcclelland DO Ophthalmology [phone] 12/23/2023 10:00 AM Destiny Schultz RN [facility] [phone] 03/30/2024 3:40 PM (Arrive by 3:25 PM) Verónica Benavides MD Family Medicine [phone] 04/21/2024 10:30 AM Chandler Pena MD Urology [phone] 11/24/2024 1:40 PM (Arrive by 1:25 PM) Sheryl Pena PA-Antonio Dermatology [phone] Nanci Leiva, RN documented in this encounter Plan of Treatment Upcoming Encounters Date Type Department Care Team (Late st Contact Info) Description 12/17/2023 10:00 AM EDT Office Visit Ophthalmology, [address] [place] [address] Romel Mcclelland DO [address] [place] [address] [place] [address] 12/23/2023 10:00 AM EDT Home Visit [facility], [facility] [address] [facility] [place] [address] Destiny Schultz RN 132 [facility] [place] [address] 03/30/2024 3:40 PM EDT Office Visit Family Medicine [address] [place] [phone] Verónica Benavides MD [address] [place] [address] [place] [address] 04/21/2024 10:30 AM EDT [facility]medicine Urology, [facility] [place] [address] Chandler Pena MD [address] [address] [place] [address] 11/24/2024 1:40 PM EDT Office Visit Dermatology [address] [place] [address] Sheryl Pena PA-C [address] [place] [address] [place] [address] Health Maintenance Due Date Last Done Comments [...] Additional history exists CKD PHOS USE SMARTSET 03093 02/08/2024 06/01/2023, 08/07/2021, 11/09/2019, Additional history exists TSH 03/25/2024 03/25/2023, 07/0 10/2022, 10/28/2022, Additional history exists Influenza Vaccine (FLU shot) (Season Ended) 2024 06/20/2022, 06/20/2022, 06/29/2021, Additional history exists CKD HGB USE SMARTSET 53022 05/26/202405/26, 05/26/2023, 04/07/2023, Additional history exists Pneumococcal [...] Not on filedocumented as of this encounter Additional Health Concerns 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/2023 documented as of this encounter Advance Directives Documents on File Type Date Recorded 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
--- OUTSIDE RECORDS SUMMARY | 2023-12-10 00:28 | External Medical Summary | Summary of Care ---
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 [address] [place] [address] [facility]: Acute Allergies Active Allergy [...] in the morning. 0 08/08/2021 Active Nystatin 858775 UNIT/GM External Powder (Nystop)Indications: Lydia rash of [...] XL)Indications:Non-i schemic cardiomyopathy (HCC),Coronary artery disease involving tulalip coronary artery of tulalip heart without angina pectoris,HTN, goal below 140/90 [...] hemoglobin A1c goal of less than 8.0% ([facility]) TEST UP TO FOUR TIMES DAILY 400 [...] Tablet 3 07/08/2023 Active OneTouch Delica Plus [id number] :Type 2 diabetes mellitus with hemoglobin A1c goal of less than 8.0% ([facility]) Test up to two times daily or as directed by [facility] pharmacist 200 Each 3 07/11/2023 Active [...] If no improvement on day 3, contact [facility] for possible home visit 1 Each [...] 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 Last Assessment & Plan: [facility] Triage Call: Reviewed last C&S - [...] Continue synthroid Coronary artery disease invo lving tulalip coronary artery of tulalip heart without angina pectoris 07/03/2012 Overview: 60% [...] mRNA, LNP-s, No Pre serve, 2-Dose Series (Scancell) 08/29/2021,10/23/2020,10/02/2020 COVID-19, MRNA-LNP, 23-24, P F, 30 MCG/0.3 mL, 12 YRS AND ABOVE, IM ([facility]) 08/04/2023 Covid-19, Mrna, Lnp-s, Pf, B ivalent, [...] Encounter - Nanci Leiva RN - 12/09/2023 11:11 AM EDT Called and spoke with daughterJosselyn She was receptive to taking her mother to ED.Will talk to her about it and also her sister who is POA Aware if Roel Santos needs any information, they can call [facility] to either have documents faxed or to speak to [facility] or Dr Pena Requested Josselyn keep us updated Liliam Leiva RN, BSN [facility] Intake Triage Coordinator [phone] * Addendum Note - Libia Sanchez MD - 12/09/2023 11:00 AM EDTAddended by: LIBIA SANCHEZ on: 12/09/2023 11:00 AM Modules accepted: Orders * Telephone Encounter - Libia Sanchez MD - 12/09/2023 10:56 AM EDT [facility] Pr[facility]akar Galvez Subprogram: Primary Care at Home Recommendations: Remember [...] up items to be completed and correspondence: 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 please work on the following: contact the caller with advice and orders as above Libia Sanchez MD [facility] - [facility] 12/09/2023 Scheduled appointments in the next 60 days: Future Appointments-next 60 days Date/Time Provider Specialty Dept Phone 12/10/2023 12:30 PM Lise Connell [facility] [phone] 12/17/2023 10:00 AM Romel Mcclelland, DO Ophthalmology [phone] 12/23/2023 10:00 AM Destiny Schultz RN [facility] [phone] 03/30/2024 3:40 PM (Arrive by 3:25 PM) Verónica Benavides MD Family Medicine [phone] 04/21/2024 10:30 AM Chandler Pena MD Urology [phone] 11/24/2024 1:40 PM (Arrive by 1:25 PM) Sheryl Pena PA-C Dermatology [phone] * Telephone Encounter - Nanci Leiva, RN - 12/09/2023 10:38 AM EDT [facility] dock material mover Acute Call Date: 12/09/2023 Time: 10:39 AM Name: Regla Castano : 1935 Caller: Josselyn Relationship to : daughter Chief Complaint Patient presents with [facility]: Acute HPI: Regla Castano is a 88 year old female who is calling [facility] Intake to report she is [...] and now c/o knee pain , giving healthcare management a hardtime, doesn't remember things that have [...] atrioventricular block I44.0 Coronary artery disease involving tulalip coronary artery of tulalip heart without angina pectoris I25.10 ACEI/ARB contraindicated [id number] Type 2 diabetes mellitus with hemoglobin A1c goal of less than 8.0% (HCC) E11.9 Non-ischemic cardiomyopathy (HCC) I42.8 Heart failure, systolic, due to idiopathic cardiomyopathy (HCC) I50.20, I42.9 Aortic valve stenosis I35.0 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 Type 2 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 disease, without long-term current use of insulin ([facility]) E11.22, N18.31 Lymphedema of both lower extremities I89.0 Benign paroxysmal vertigo of both ears H81.13 Gastroesophageal reflux disease without esophagitis K21.9 Type 2 diabetes mellitus with mild nonproliferative diabetic retinopathy without macular edema, right eye ([facility]) E11.3291 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 documented in this encounter Plan of Treatment Upcoming Encounters Date Type Department Care Team (Late st Contact Info) Description 12/10/2023 12:30 PM EDT Scheduled Telephone [facility], [address] [place] [address] Coordinator, [facility] 132 [facility] [place] [address] 12/17/2023 10:00 AM EDT Office Visit Ophthalmology, [facility] 132 [facility] [place] [address] Romel Mcclelland, DO [address] [place] [address] 12/23/2023 10:00 AM EDT Home Visit [facility], [facility] [address] [facility] [place] [address] Destiny Schultz RN 132 [facility] [place] [address] 03/30/2024 3:40 PM EDT Office Visit Family Medicine [address] [place] [address] Verónica Benavides MD [address] [place] [address] [place] [address] 04/21/2024 10:30 AM EDT Telemedicine Urology, [facility] 132 [facility] [place] [address] Chandler Pena MD [address] [place] [address] [place] [address] 11/24/2024 1:40 PM EDT Office Visit Dermatology [address] [place] [address] Sheryl Pena PA-C [address] [place] [address] [place] [address] Scheduled Orders Name Type Priority Associated Diagnoses [...] Additional history exists CKD PHOS USE SMARTSET 35835 02/08/202401/23, 08/07/2021, 11/09/2019, Additional history exists TSH 03/25/2024 03/25/2023, 07/0 10/2022, 10/28/2022, Additional history exists Influenza Vaccine (FLU shot) (Season Ended) 2024 06/20/2022, 06/20/2022, 06/29/2021, Additional history exists CKD HGB USE SMARTSET 39770 05/26/202405/26, 05/26/2023, 04/07/2023, Additional history exists Pneumococcal [...] Documents on File Type Date Recorded 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
--- OUTSIDE RECORDS SUMMARY | 2023-12-10 00:29 | External Medical Summary | Summary of Care ---
Author Name Unknown Organization [facility] Address [address] [place] [address] Phone [phone] Care Team Providers Care Hot Stick Worker Name Role Phone Verónica Benavides MD Primary Care Provide r Reason for Visit * Reason Onset Date Comments [facility]: Maintenance 12/03/2023 Encounter Details Date Type Department Care Team (Late st Contact Info) Description 12/03/2023 12:15 PM EDT Scheduled Telephone [facility], [facility] 132 [facility] [place] [address] Coordinator, [facility] 132 [facility] [place] [address] Allergies Active Allergy Reactions Criticality Noted Date Comments Adhesive Tape Medium 01/30/2022 Ibuprofen Hives 01/13/2012 Aspirin Hives,Rash 09/15/2000 Sulfamethoxazole-Trimeth oprim Nausea/vomiting,Othe r (Please comment) 10/27/2020 Dizziness Ciprofloxacin Hcl 06/16/2019 Hoarse, dizzy,disoriented Morphine 09/21/2021 Blacked out Penicillins Hives,Rash 09/15/2000 Prednisone 12/30/2017 Weakness/memory changes/blurred vision documented as of this encounter (statuses as of 12/03/2023) Medications Medication Sig Dispensed Refills Start Date [...] in the morning. 0 08/08/2021 Active Nystatin 569625 UNIT/GM External Powder (Nystop)Indications :Lydia rash of groin Apply topically to affected [...] Oral Tablet Extended Release 24 Hour (toPROL XL)Indications:Non- ischemic cardiomyopathy (HCC),Coronary artery disease involving jamul coronary artery of jamul heart without angina pectoris,HTN, goal below 140/90 Take 1 Tablet by mouth every evening. 90 Tablet 11 02/27/2023 Active Spironolactone 25 MG Oral Tablet (Aldactone)Indicati ons:Non-ischemic cardiomyopathy (HCC) Take 0.5 Tablets by mouth in the morning. 45 Tablet 3 02/27/2023 Active metOLazone 2.5 MG Oral Tablet (Zaroxolyn) Take one tablet only when directed by clinician. 5 Tablet 0 03/12/2023 Active Benzonatate 100 MG Oral Capsule Take 1 Capsule by mouth 3 times a day as needed for Cough. 30 Capsule 1 04/29/2023 Active OneTouch Verio In Vitro Strip (Glucose Blood)Indications:T ype 2 diabetes mellitus with stage 3 chronic kidney disease, without long-term current use of insulin ([facility]),Type 2 diabetes mellitus with hemoglobin A1c goal of less than 8.0% ([facility]) TEST UP TO FOUR TIMES DAILY 400 Strip 1 05/30/2023 Active Colchicine 0.6 MG Oral Tablet Take one twice for gout attack 8 Tablet 0 06/03/2023 Active Fosfomycin Tromethamine 3 GM Oral Packet (Monurol)Indication s:Complicated UTI (urinary tract infection) Take 3 g [...] Tablet 3 07/08/2023 Active OneTouch Delica Plus [id number] s:Type 2 diabetes mellitus with hemoglobin A1c goal of less than 8.0% ([facility]) Test up to two times daily [...] Active Levothyroxine Sodium 88 MCG Oral Tablet (Levoxyl)Indication s:Hypothyroidism, unspecified type TAKE ONE TABLET BY MOUTH [...] 10/15/2023 Active Clotrimazole 1 % External Cream (Lotrimin)Indicatio ns:Candidal intertrigo APPLY TO THE AFFECTED AREA(S) TWICE DAILY FOR FOURTEEN DAYS 60 g 2 10/22/2023 Active Additional Information Patient not taking.Reported on 10/22/2023 Potassium Chloride Laura ER 20 MEQ Oral Tablet Extended Release Take 1 Tablet by mouth 2 times a day with morning and evening meals. 180 Tablet 1 11/21/2023 Active Torsemide 20 MG Oral Tablet (Demadex)Indication s:Heart failure, systolic, due to idiopathic cardiomyopathy (HCC) Take 60 mg by mouth in the morning, 40 mg by mouth in the afternoon. Additional 20 mg in the afternoon ONLY if directed by health care provider for weight gain of 3 lbs or more. 180 Tablet 3 11/28/2023 Active DIURETIC TITRATION PLAN If no improvement on day 3, contact [facility] for [facility] home visit 1 Each 0 11/28/2023 Active Meclizine HCl 25 MG Oral Tablet (Antivert)Indicatio ns:Vertigo Take 1 tablet by mouth 3 times a day as needed for dizziness 30 Tablet 5 11/28/2023 Active Ondansetron HCl 4 MG Oral Tablet Take 1 Tablet by mouth every 6 hours as needed for Nausea. 20 Tablet 0 12/03/2023 Active Sulfamethoxazole-Tr imethoprim 800-160 MG Oral Tablet (Bactrim DS) Take 1 Tablet by mouth in the morning and 1 Tablet before bedtime. Do all this for 7 days. Until gone. 14 Tablet 0 12/03/2023 4 Active Ondansetron HCl 4 MG Oral Tablet Take 1 Tablet by mouth every 6 hours as needed for Nausea. 30 Tablet 0 05/04/2023 4 Discontinu ed(Refill) documented as of this encounter (statuses as of 12/03/2023) Active Problems Problem Noted Date Diagnosed Date [...] 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 Last Assessment & Plan: [facility] Triage Call: Reviewed last C&S - [...] Continue synthroid Coronary artery disease invo lving jamul coronary artery of jamul heart without angina pectoris 07/03/2012 Overview: 60% [...] as of this encounter (statuses as of 12/03/2023) Resolved Problems Problem Noted Date Diagnosed Date Resolved Date Stage 3a chronic kidney disease 07/03/2020 10/05/2020 Overview: Per CKD protocol Hypertensive heart disease w ith systolic heart failure and stage 3a chronic kidney disease 07/03/2020 11/28/2020 Overview: Per CKD protocol Type 2 diabetes mellitus wit h diabetic peripheral angiopathy without gangrene 03/07/2020 0 11/28/2020 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/09/2019 03/02/2020 Morbid obesity with BMI of 45.0-49.9, adult [...] as of this encounter (statuses as of 12/03/2023) Immunizations Name Administration Dates Next Due COVID-19 mRNA, LNP-s, No Pre serve, 2-Dose Series (OuiCar) 08/29/2021,10/23/2020,10/02/2020 COVID-19, MRNA-LNP, 23-24, P F, 30 MCG/0.3 mL, 12 YRS AND ABOVE, IM ([employer]och[employer]-Comirnat) 08/04/2023 Covid-19, Mrna, Lnp-s, Pf, B ivalent, 30 Mcg, IM, 12 yrs and above ([employer]) 08/02/2022 Influenza, Whole Virus 08/07/2000 Pneumococcal Conjugate [...] encounter Miscellaneous Notes * Addendum Note - Mackenzie Orona MD - 12/03/2023 1:51 PM EDTAddended by: MACKENZIE ORONA on: 12/03/2023 01:51 PM Modules accepted: Orders * Telephone Encounter - Mackenzie Orona MD - 12/03/2023 1:50 PM EDT Rx x 2 sent Follow-up phone call tomorrow If side effects occur, stop bactrim, call [facility] and will likely need admission for iv antibiotics. * Telephone Encounter - Nanci Leiva RN - 12/03/2023 1:44 PM EDT Called daughter. Wants to go the Bactrim and Zofran route. When patient is admitted, she loses her mobility, then needs to go to rehab She has eyelid surgery coming up in a couple weeks, would be very upset if she misses that. [facility] for Bactrim & Zofran orders, please Liliam Leiva RN, BSN [facility] Intake Triage Coordinator [phone] * Telephone Encounter - Mackenzie Orona MD - 12/03/2023 1:39 PM EDT I collaborated with Dr Pena. We agree that we could try bactrim but she has know intolerance to this listed as nausea/vomiting and dizziness. If we went that route, we would also rx zofran prn n/v. Otherwise, admission for iv antibiotics is the alternative. * Telephone Encounter - Nanci Leiva RN - 12/03/2023 1:18 PM EDT PC to daughterJosselyn She is wondering if UTI is due to Dr Pena, Urology, recently decreasing her maintenance dose of Macrobid from BID to 1x/day She is requesting Dr Orona reach out and talk [facility], , prior toher taking patient to ED If she takes patient to ED, it would be [place] Advised I will send Dr Orona the message Call her back with any update Liliam Leiva RN, BSN [facility] Intake Triage Coordinator [phone] * Telephone Encounter - Mackenzie Orona MD - 12/03/2023 12:57 PM EDT Due to multiple drug resistant E coli with ESBL production, she will likely need IV antibiotics. In her location, there are no direct admission options. Therefore, I recommend family take her to ED today. If they know which facility, we can fax a copy of her urine culture report. Cc: Jimi PACHECO * Telephone Encounter - Nanci Leiva RN - 12/03/2023 12:37 PM EDT Images from the original note were not included. [facility] Telephonic Nurse Follow-Up Call [facility] Subprogram: Primary Care at Home Follow Up Call Type: Routine follow up call / Status Check Acute issue requiring follow-up call: Complicated UTI Objective: 11/11/2023 2:14 PM 10/31/2023 2:19 PM [...] DME Needs: NO DME needs identified Medications: No medication or dose adjustments made during acute episode , pending order Subjective: Condition Status: No change in symptoms Current Concerns: Poor appetite, weakness, confused on and off. Remains with same urine symptoms: foul smell, concentrated Drinking water , but probably not as much as she should. Have to push her to drink. Disposition: Routed to [facility] and/or [facility] at Home Care Team for further advice Future Visits Scheduled: Future Appointments-next 60 days Date/Time Provider Specialty Dept Phone 12/17/2023 10:00 AM Romel Mcclelland, Ophthalmology [phone] 12/23/2023 10:00 AM Destiny Schultz RN [facility] [phone] 03/30/2024 3:40 PM (Arrive by 3:25 PM) Verónica Benavides MD Family Medicine [phone] 04/21/2024 10:30 AM Chandler Pena MD Urology [phone] 11/24/2024 1:40 PM (Arrive by 1:25 PM) Sheryl Pena PA-Antonio Dermatology [phone] Nanci Leiva, RN documented in this encounter Plan of Treatment Upcoming Encounters Date Type Department Care Team (Late st Contact Info) Description 12/06/2023 11:30 AM EDT Scheduled Telephone [facility], [address] [place] [address] [facility], Nurse [facility] 132 [facility] [place] [address] 12/17/2023 10:00 AM EDT Office Visit Ophthalmology, [facility] 132 [facility] [place] [address] Romel Mcclelland, DO [address] [place] [address] 12/23/2023 10:00 AM EDT Home Visit [facility], [facility] 132 [facility] [place] [address] Destiny Schultz RN 132 [facility] [place] [address] 03/30/2024 3:40 PM EDT Office Visit Family Medicine [address] [place] [phone] Verónica Benavides MD [address] [place] [address] [place] [address] 04/21/2024 10:30 AM EDT Telemedicine Urology, [facility] 132 [facility] [place] [address] Chandler Pena MD [address] [place] [address] [place] [address] 11/24/2024 1:40 PM EDT Office Visit Dermatology [address] [place] [address] Sheryl Pena PA-C [address] [place] [address] [place] [address] Health Maintenance Due Date Last Done Comments [...] Additional history exists CKD PHOS USE SMARTSET 16456 02/08/202401/23, 08/07/2021, 11/09/2019, Additional history exists TSH 03/25/2024 03/25/2023, 07/0 10/2022, 10/28/2022, Additional history exists Influenza Vaccine (FLU shot) (Season Ended) 2024 06/20/2022, 06/20/2022, 06/29/2021, Additional history exists CKD HGB USE SMARTSET 28937 05/26/202405/26, 05/26/2023, 04/07/2023, Additional history exists Pneumococcal [...] Documents on File Type Date Recorded 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 Communication Josselyn [facility] Power of Attor nathalie Care Teams Hot Stick Worker Relationship Specialty Start Date End Date Verónica Benavides MD [address] [place] [address] [place] [phone] PCP - General Family Medicine 09/16/14 documented as of this encounter
--- OUTSIDE RECORDS SUMMARY | 2023-12-10 00:29 | External Medical Summary | Summary of Care ---
Author Name Unknown Organization [facility] Address [address] [place] [address] Phone [phone] Care Team Providers Care School Custodian Name Role Phone Verónica Benavides MD Primary Care Provide r Reason for Visit * Reason Onset Date Comments [facility]: Maintenance 12/03/2023 Encounter Details Date Type Department Care Team (Late st Contact Info) Description 12/03/2023 12:15 PM EDT Scheduled Telephone [facility], [facility] [address] [facility] [place] [address] Coordinator, [facility] 132 [facility] [place] [address] Allergies Active Allergy Reactions Criticality Noted Date [...] in the morning. 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 30 Capsule 1 04/29/2023 Active Ondansetron HCl 4 MG Oral Tablet Take 1 Tablet by mouth every 6 hours as needed for Nausea. 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, without long-term current use of insulin ([facility]),Type 2 diabetes mellitus with hemoglobin A1c goal of less than 8.0% ([facility]) TEST UP TO FOUR TIMES DAILY 400 [...] Tablet 3 07/08/2023 Active OneTouch Delica Plus [id number] :Type 2 diabetes mellitus with hemoglobin A1c goal of less than 8.0% ([facility]) Test up to two times daily or as directed by [facility] pharmacist 200 Each 3 07/11/2023 Active Estrogens [...] Patient not taking.Reported on 10/22/2023 Potassium Chloride Lauar ER 20 MEQ Oral Tablet Extended Release [...] If no improvement on day 3, contact [facility] for possible home visit 1 Each 0 11/28/2023 Active Meclizine HCl 25 MG Oral Tablet (Antivert)Indication s:Vertigo Take 1 tablet by mouth 3 times a day as needed for dizziness 30 Tablet 5 11/28/2023 Active documented as of this encounter (statuses [...] 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 Last Assessment & Plan: [facility] Triage Call: Reviewed last C&S - [...] Beta Berta Therapy: Metoprolol Succinate (ER) o MRAIO Inhibitor/ARB Therapy: Other: none o Diuretic therapy: [...] Continue synthroid Coronary artery disease invo lving tribal coronary artery of tribal heart without angina pectoris 07/03/2012 Overview: 60% [...] mRNA, LNP-s, No Pre serve, 2-Dose Series (Tapestry) 08/29/2021,10/23/2020,10/02/2020 COVID-19, MRNA-LNP, 23-24, P F, 30 MCG/0.3 mL, 12 YRS AND ABOVE, IM (Justin.TV-Comirnaty) 08/04/2023 Covid-19, Mrna, Lnp-s, Pf, B ivalent, [...] be very upset if she misses that. [facility] for Bactrim & Zofran orders, please Liliam Leiva RN, BSN [facility] Intake Triage Coordinator [phone] * Telephone Encounter - Hermann Orona MD - 12/03/2023 1:39 PM EDT [...] - 12/03/2023 1:18 PM EDT PC to daughter, Josselyn She is wondering if UTI is due to Dr Pena, Urology, recently decreasing her maintenance dose of Macrobid from BID to 1x/day She is requesting Dr Orona reach out and talk with Dr Pena [facility] [place], , prior toher taking patient to ED If she takes patient to ED, it would be [facility] Santos Advised I will send Dr Orona the message Call her back with any update Liliam Leiva RN, BSN [facility] Intake Triage Coordinator [phone] * Telephone Encounter - Hermann Orona MD - 12/03/2023 12:57 PM EDT [...] [facility] Telephonic Nurse Follow-Up Call [facility] Subprogram: Primary Care at Home Follow [...] push her to drink. Disposition: Routed to [facility] and/or [facility] Care Team for further advice Future Visits Scheduled: Future Appointments-next 60 days Date/Time Provider Specialty Dept Phone 12/17/2023 10:00 AM Romel Mcclelland DO Ophthalmology [phone] 12/23/2023 10:00 AM Destiny Schultz RN [facility] [phone] 03/30/2024 3:40 PM (Arrive by 3:25 PM) Verónica Benavides MD Family Medicine [phone] 04/21/2024 10:30 AM Chandler Pena MD Urology [phone] 11/24/2024 1:40 PM (Arrive by 1:25 PM) Sheryl Pena [place] [facility] [phone] Nanci Leiva, RN documented in this encounter Plan of Treatment Upcoming Encounters Date Type Department Care Team (Late st Contact Info) Description 12/06/2023 11:30 AM EDT Scheduled Telephone [facility] [place], [facility] 132 [facility] [place] [address] [facility], Nurse [facility] 132 [facility] [place] [address] 12/17/2023 10:00 AM EDT Office Visit Ophthalmology, [facility] [address] [facility] [place] [address] Romel Mcclelland DO [address] [place], [place] [address] [address] 12/23/2023 10:00 AM EDT Home Visit [facility], [facility] [address] [facility] [place] [address] Detsiny Schultz, RN 132 [facility] [place] [address] 03/30/2024 3:40 PM EDT Office Visit Family Medicine [address] [place] [phone] Verónica Benavides MD [address] [place] [address] [place] [address] 04/21/2024 10:30 AM EDT Telemedicine Urology, [facility] [address] [facility] [place] [address] Chandler Pena MD 27 [facility] [address] [place] [address] 11/24/2024 1:40 PM EDT Office Visit Dermatology [address] [place] [address] Sheryl Pena PA-C [address] [place] [address] [place] [address] Health Maintenance Due Date Last Done Comments [...] Additional history exists CKD PHOS USE SMARTSET 24266 02/08/202401/23, 08/07/2021, 11/09/2019, Additional history exists TSH 03/25/2024 03/25/2023, 07/0 10/2022, 10/28/2022, Additional history exists Influenza Vaccine (FLU shot) (Season Ended) 2024 06/20/2022, 06/20/2022, 06/29/2021, Additional history exists CKD HGB USE SMARTSET 37465 05/26/202405/26, 05/26/2023, 04/07/2023, Additional history exists Pneumococcal [...] Documents on File 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
--- OUTSIDE RECORDS SUMMARY | 2023-12-10 00:29 | External Medical Summary | Summary of Care ---
Author Name Unknown Organization [facility] Address [address] [place] [address] Phone [phone] Care Team Providers Care Concrete Journeyman Name Role Phone Verónica Benavides MD Primary Care Provide r Reason for Visit * Reason Onset Date Comments [facility]: Maintenance 12/03/2023 Encounter Details Date Type Department Care Team (Late st Contact Info) Description 12/03/2023 12:15 PM EDT Scheduled Telephone [facility], [facility] 132 [facility] [place] [address] Coordinator, [facility] 132 [facility] [place] [address] Allergies Active Allergy Reactions Criticality Noted Date [...] in the morning. 0 08/08/2021 Active Nystatin 501652 UNIT/GM External Powder (Nystop)Indications: Lydia rash of [...] XL)Indications:Non-i schemic cardiomyopathy (HCC),Coronary artery disease involving aniak coronary artery of aniak heart without angina pectoris,HTN, goal below 140/90 [...] long-term current use of insulin ([facility]),Type 2 diabetes mellitus with hemoglobin A1c goal of less than 8.0% ([facility]) TEST UP TO FOUR TIMES DAILY [...] Tablet 3 07/08/2023 Active OneTouch Delica Plus [id number] :Type 2 diabetes mellitus with hemoglobin A1c goal of less than 8.0% ([facility]) Test up to two times daily or as directed by [facility] pharmacist 200 Each 3 07/11/2023 Active [...] If no improvement on day 3, contact [facility] for possible home visit 1 Each [...] 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, , prior toher taking patient to ED If she takes patient to ED, it would be [facility] Advised I will send Dr Orona the message Call her back with any update Liliam Leiva RN, BSN [facility] Intake Triage Coordinator [phone] * Telephone Encounter - Hermann Orona MD [...] [facility] Telephonic Nurse Follow-Up Call [facility] Subprogram: Primary Care at Home Follow [...] push her to drink. Disposition: Routed to [facility] and/or [facility] at Home Care Team for further advice Future Visits Scheduled: Future Appointments-next 60 days Date/Time Provider Specialty Dept Phone 12/17/2023 10:00 AM Romel Mcclelland DO Ophthalmology [phone] 12/23/2023 10:00 AM Destiny Schultz, POPPY [facility] [phone] 03/30/2024 3:40 PM (Arrive by 3:25 PM) Verónica Benavides MD Family Medicine [phone] 04/21/2024 10:30 AM Chandler Pena MD Urology [phone] 11/24/2024 1:40 PM (Arrive by 1:25 PM) Sheryl Pena PA-C Dermatology [phone] Nanci Leiva, RN documented in this encounter Plan of Treatment Upcoming Encounters Date Type Department Care Team (Late st Contact Info) Description 12/17/2023 10:00 AM EDT Office Visit Ophthalmology, [facility] 132 [facility] [place] [address] Romel Mcclelland, DO [address] [place] [address] 12/23/2023 10:00 AM EDT [facility] Visit [facility] [place], [facility] 132 [facility] [place] [address] Destiny Schultz RN 132 [place] [address] 03/30/2024 3:40 PM EDT Office Visit Family Medicine [address] [place] [phone] Verónica Benavides MD [address] [place] [address] [place] [address] 04/21/2024 10:30 AM EDT Telemedicine Urology, [facility] 132 [facility] [place] [address] Chandler Pena MD [address] [place] [address] [place] [address] 11/24/2024 1:40 PM EDT Office Visit Dermatology [address] [place] [address] Sheryl Pena PA-C [address] [place] [address] [place] [address] Health Maintenance Due Date Last Done Comments [...] Additional history exists CKD PHOS USE SMARTSET 15572 02/08/202401/23, 08/07/2021, 11/09/2019, Additional history exists TSH 03/25/2024 03/25/2023, 07/0 10/2022, 10/28/2022, Additional history exists Influenza Vaccine (FLU shot) (Season Ended) 2024 06/20/2022, 06/20/2022, 06/29/2021, Additional history exists CKD HGB USE SMARTSET 96013 05/26/202405/26, 05/26/2023, 04/07/2023, Additional history exists Pneumococcal [...] Documents on File Type Date 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
--- OUTSIDE RECORDS SUMMARY | 2023-12-10 00:29 | External Medical Summary | Summary of Care ---
Author Name Unknown Organization [facility] Address [address] [place] [address] Phone [phone] Care Team Providers Care Scientific Helper Name Role Phone Verónica Benavides MD Primary Care Provide r Reason for Visit * Reason Onset Date Comments [facility]: Maintenance 12/03/2023 Encounter Details Date Type Department Care Team (Late st Contact Info) Description 12/03/2023 12:15 PM EDT Scheduled Telephone [facility], [facility] 132 [facility] [place] [address] Coordinator, [facility] 132 [facility] [place] [address] Allergies Active Allergy Reactions Criticality Noted Date [...] in the morning. 0 08/08/2021 Active Nystatin 658312 UNIT/GM External Powder (Nystop)Indications :Lydia rash of [...] XL)Indications:Non- ischemic cardiomyopathy (HCC),Coronary artery disease involving nez perce coronary artery of nez perce heart without angina pectoris,HTN, goal below 140/90 [...] long-term current use of insulin ([facility]),Type 2 diabetes mellitus with hemoglobin A1c goal of less than 8.0% ([facility]) TEST UP TO FOUR TIMES DAILY [...] Tablet 3 07/08/2023 Active OneTouch Delica Plus [id number] s:Type 2 diabetes mellitus with hemoglobin A1c goal of less than 8.0% ([facility]) Test up to two times daily or as directed by [facility] pharmacist 200 Each 3 07/11/2023 Active Estrogens [...] If no improvement on day 3, contact [facility] for possible home visit 1 Each [...] 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 Last Assessment & Plan: [facility] Triage Call: Reviewed last C&S - [...] Continue synthroid Coronary artery disease invo lving nez perce coronary artery of nez perce heart without angina pectoris 07/03/2012 Overview: 60% [...] mRNA, LNP-s, No Pre serve, 2-Dose Series (K2 Intelligence) 08/29/2021,10/23/2020,10/02/2020 COVID-19, MRNA-LNP, 23-24, P F, 30 MCG/0.3 mL, 12 YRS AND ABOVE, IM (Best Learning English-Comirnat) 08/04/2023 Covid-19, Mrna, Lnp-s, Pf, B ivalent, 30 Mcg, IM, 12 yrs and above ([employer]) 08/02/2022 Influenza, Whole Virus 08/07/2000 Pneumococcal Conjugate [...] very upset if she misses that. [facility] for Bactrim & Zofran orders, please Liliam Leiva RN, BSN [facility] Intake Triage Coordinator [phone] * Telephone Encounter - Mackenzie Orona MD [...] Orona reach out and talk with [facility], , prior toher taking patient to ED If she takes patient to ED, it would be [facility] Advised I will send Dr Orona the message Call her back with any update Liliam Leiva RN, BSN [facility] Intake Triage Coordinator [phone] * Telephone Encounter - Mackenzie Orona MD [...] [facility] Telephonic Nurse Follow-Up Call [facility] Subprogram: Primary Care at Home Follow [...] push her to drink. Disposition: Routed to [facility] and/or [facility] at Home Care Team for further advice Future Visits Scheduled: Future Appointments-next 60 days Date/Time Provider Specialty Dept Phone 12/17/2023 10:00 AM Romel Mcclelland, Ophthalmology [phone] 12/23/2023 10:00 AM Destiny Schultz RN [facility] [phone] 03/30/2024 3:40 PM (Arrive by 3:25 PM) Verónica Benavides MD Family Medicine [phone] 04/21/2024 10:30 AM Chandler Pena MD Urology [phone] 11/24/2024 1:40 PM (Arrive by 1:25 PM) Sheryl Pena PA-[place] D[facility]at[facility] [phone] Nanci Leiva, RN documented in this encounter Plan of Treatment Upcoming Encounters Date Type Department Care Team (Late st Contact Info) Description 12/04/2023 1:00 PM EDT Scheduled Telephone [facility], [address] [place] [address] Coordinator, [place] [address] [facility] [place] [address] 12/05/2023 12:00 PM EDT Scheduled Telephone [facility], [address] [place] [address] Coordinator, [address] [place] [address] 12/17/2023 10:00 AM EDT Office Visit Ophthalmology, [facility] [address] [place] [address] Romel Mcclelland T, [address] [address] 12/23/2023 10:00 AM EDT Home Visit [facility], [facility] 132 [facility] [place] [address] Destiny Schultz, POPPY 132 [facility] [place] [address] 03/30/2024 3:40 PM EDT Office Visit Family Medicine [address] [phone] Verónica Benavides MD [address] [place] [address] [place] [address] 04/21/2024 10:30 AM EDT Telemedicine Urology, [facility] 132 [address] [place] [address] Chandler Pena MD [address] [facility] [place] [address] [place] [address] 11/24/2024 1:40 PM EDT Office Visit Dermatology [address] [place] [address] Sheryl Pena PA-C [address] [place] [address] [place] [address] Health Maintenance Due Date Last Done Comments [...] Additional history exists CKD PHOS USE SMARTSET 84437 02/08/202401/23, 08/07/2021, 11/09/2019, Additional history exists TSH 03/25/2024 03/25/2023, 07/10/2022, 10/28/2022, Additional history exists Influenza Vaccine (FLU shot) (Season Ended) 2024 06/20/2022, 06/20/2022, 06/29/2021, Additional history exists CKD HGB USE SMARTSET 38402 05/26/202405/26, 05/26/2023, 04/07/2023, Additional history exists Pneumococcal [...] Documents on File Type Date Recorded 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
--- OUTSIDE RECORDS SUMMARY | 2023-12-10 00:29 | External Medical Summary | Summary of Care ---
Author Name Unknown Organization [facility] Address [address] [place] [address] Phone [phone] Care Team Providers Care Sales And Marketing Assistant Name Role Phone Verónica Benavides MD Primary Care Provide r Reason for Visit * Reason Onset Date Comments [facility]: Maintenance 12/03/2023 Encounter Details Date Type Department Care Team (Late st Contact Info) Description 12/03/2023 12:15 PM EDT Scheduled Telephone [facility], [facility] 132 [facility] [place] [address] Coordinator, [facility] 132 [facility] [place] [address] Allergies Active Allergy Reactions Criticality Noted Date [...] in the morning. 0 08/08/2021 Active Nystatin 307564 UNIT/GM External Powder (Nystop)Indications: Lydia rash of [...] XL)Indications:Non-i schemic cardiomyopathy (HCC),Coronary artery disease involving [place] coronary artery of [place] heart without angina pectoris,HTN, goal below 140/90 [...] (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 Last Assessment & Plan: [facility] Triage Call: Reviewed last C&S [...] Continue synthroid Coronary artery disease invo lving [place] coronary artery of [place] heart without angina pectoris 07/03/2012 Overview: 60% [...] mRNA, LNP-s, No Pre serve, 2-Dose Series (Bocom) 08/29/2021,10/23/2020,10/02/2020 COVID-19, MRNA-LNP, 23-24, P F, 30 MCG/0.3 mL, 12 YRS AND ABOVE, IM (Keep Me Certified-Comirnaty) 08/04/2023 Covid-19, Mrna, Lnp-s, Pf, B ivalent, [...] encounter Miscellaneous Notes * Telephone Encounter - Hermann Orona MD [...] reach out and talk with Dr Pena [facility], , prior toher taking patient to ED If she takes patient to ED, it would be Roel Santos Advised I will send Dr Orona the message Call her back with any update Liliam Leiva RN, BSN [facility] Intake Triage Coordinator [phone] * Telephone Encounter - Hermann Orona MD [...] from the original note were not included. [facility] Telephonic Nurse Follow-Up Call [facility] Subprogram: Primary Care at Home [...] push her to drink. Disposition: Routed to [facility] and/or [facility] at Home Care Team for further advice Future Visits Scheduled: Future Appointments-next 60 days Date/Time Provider Specialty Dept Phone 12/17/2023 10:00 AM Romel Mcclelland, DO Ophthalmology [phone] 12/23/2023 10:00 AM Destiny Schultz, POPPY [facility] [phone] 03/30/2024 3:40 PM (Arrive by 3:25 PM) Verónica Benavides MD Family Medicine [phone] 04/21/2024 10:30 AM Chandler Pena MD Urology [phone] 11/24/2024 1:40 PM (Arrive by 1:25 PM) Sheryl Pena PA-C Dermatology [phone] Nanci Leiva RN documented in this encounter Plan of Treatment Upcoming Encounters Date Type Department Care Team (Late st Contact Info) Description 12/17/2023 10:00 AM EDT Office Visit Ophthalmology, [facility] 132 [place] [address] Romel Mcclelland, DO [address] [place] [address] 12/23/2023 10:00 AM EDT [facility] [place], [facility] 132 [facility] [place] [address] Destiny Schultz RN 132 [place] [address] 03/30/2024 3:40 PM EDT Office Visit Family Medicine [address] [place] [phone] Verónica Benavides MD [address] [place] [address] [place] [address] 04/21/2024 10:30 AM EDT Telemedicine Urology, [facility] 132 [facility] [place] [address] Chandler Pena MD [address] [place] [address] [place] [address] 11/24/2024 1:40 PM EDT Office Visit Dermatology [address] [place] [address] Sheryl Pena PA-C [address] [place] [address] [place] [address] Health Maintenance Due Date Last Done Comments [...] Additional history exists CKD PHOS USE SMARTSET 36164 02/08/202401/23, 08/07/2021, 11/09/2019, Additional history exists TSH 03/25/2024 03/25/2023, 07/0 10/2022, 10/28/2022, Additional history exists Influenza Vaccine (FLU shot) (Season Ended) 2024 06/20/2022, 06/20/2022, 06/29/2021, Additional history exists CKD HGB USE SMARTSET 67192 05/26/202405/26, 05/26/2023, 04/07/2023, Additional history exists Pneumococcal [...] Documents on File Type Date 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
--- OUTSIDE RECORDS SUMMARY | 2023-12-10 00:30 | External Medical Summary | Summary of Care ---
Author Name Unknown Organization [facility] Address [address] [place] [address] Phone [phone] Care Team Providers Care Customer Manager Name Role Phone Verónica Benavides MD Primary Care Provide r Reason for Visit * Reason Onset Date Comments [facility]: Maintenance 12/03/2023 Encounter Details Date Type Department Care Team (Late st Contact Info) Description 12/03/2023 12:15 PM EDT Scheduled Telephone [facility], [facility] 132 [facility] [place] [address] Coordinator, [facility] 132 [facility] [place] [address] Allergies Active Allergy Reactions Criticality Noted Date [...] in the morning. 0 08/08/2021 Active Nystatin 627940 UNIT/GM External Powder (Nystop)Indications: Lydia rash of [...] XL)Indications:Non-i schemic cardiomyopathy (HCC),Coronary artery disease involving rosebud coronary artery of rosebud heart without angina pectoris,HTN, goal below 140/90 [...] disease, without long-term current use of insulin ([facility]),Type 2 diabetes mellitus with hemoglobin A1c goal of less than 8.0% ([facility]) TEST UP TO FOUR TIMES DAILY 400 [...] Tablet 3 07/08/2023 Active OneTouch Delica Plus [id number] :Type 2 diabetes mellitus with hemoglobin A1c goal of less than 8.0% ([facility]) Test up to two times daily or as directed by [facility] pharmacist 200 Each 3 07/11/2023 [...] Continue synthroid Coronary artery disease invo lving rosebud coronary artery of rosebud heart without angina pectoris 07/03/2012 Overview: 60% [...] mRNA, LNP-s, No Pre serve, 2-Dose Series (Livra Panels) 08/29/2021,10/23/2020,10/02/2020 COVID-19, MRNA-LNP, 23-24, P F, 30 MCG/0.3 mL, 12 YRS AND ABOVE, IM (Hazel Mail-Comirnaty) 08/04/2023 Covid-19, Mrna, Lnp-s, Pf, B ivalent, [...] Orona reach out and talk with [facility], , prior toher taking patient to ED Advised I will send Dr Orona the message Call her back with any update Liliam Leiva RN, BSN [facility] Intake Triage Coordinator [phone] * Telephone Encounter - Hermann Orona MD [...] [facility] Telephonic Nurse Follow-Up Call [facility] [...] her to drink. Disposition: [place] [facility] [place] [facility] Care Team for further advice Future Visits Scheduled: Future Appointments-next 60 days Date/Time Provider Specialty Dept Phone 12/17/2023 10:00 AM Romel Mcclelland DO Ophthalmology [phone] 12/23/2023 10:00 AM Destiny Schultz RN [facility] [phone] 03/30/2024 3:40 PM (Arrive by 3:25 PM) Verónica Benavides MD Family Medicine [phone] 04/21/2024 10:30 AM Chandler Pena MD Urology [phone] 11/24/2024 1:40 PM (Arrive by 1:25 PM) Sheryl Pena PA-C Dermatology [phone] Nanci Leiva, RN documented in this encounter Plan of Treatment Upcoming Encounters Date Type Department Care Team (Late st Contact Info) Description 12/17/2023 10:00 AM EDT Office Visit Ophthalmology, [facility] [place] [address] Romel Mcclelland, DO [address] [place] [address] 12/23/2023 10:00 AM EDT [facility], [facility] 132 [facility] [place] [address] Destiny Schultz RN 132 [place] [address] 03/30/2024 3:40 PM EDT Office Visit Family Medicine [address] [place] [phone] Verónica Benavides MD [address] [place] [address] [place] [address] 04/21/2024 10:30 AM EDT Telemedicine Urology, [facility] 132 [place] [address] Chandler Pena MD [address] [address] [place] [address] 11/24/2024 1:40 PM EDT Office Visit Dermatology [address] [place] [address] Sheryl Pena PA-C [address] [place] [address] [place] [address] Health Maintenance Due Date Last Done Comments [...] Additional history exists CKD PHOS USE SMARTSET 50267 02/08/202401/23, 08/07/2021, 11/09/2019, Additional history exists TSH 03/25/2024 03/25/2023, 07/0 10/2022, 10/28/2022, Additional history exists Influenza Vaccine (FLU shot) (Season Ended) 2024 06/20/2022, 06/20/2022, 06/29/2021, Additional history exists CKD HGB USE SMARTSET 52927 05/26/202405/26, 05/26/2023, 04/07/2023, Additional history exists Pneumococcal [...] Documents on File Type Date Recorded Patient 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
--- OUTSIDE RECORDS SUMMARY | 2023-12-10 00:30 | External Medical Summary | Summary of Care ---
Author Name Unknown Organization [facility] Address [address] [place] [address] Phone [phone] Care Team Providers Care Sand Buffer Name Role Phone Verónica Benavides MD Primary Care Provide r Reason for Visit * Reason Onset Date Comments [facility]: Maintenance 12/03/2023 Encounter Details Date Type Department Care Team (Late st Contact Info) Description 12/03/2023 12:15 PM EDT Scheduled Telephone [facility], [facility] 132 [facility] [place] [address] Coordinator, [facility] 132 [facility] [place] [address] Allergies Active Allergy Reactions Criticality Noted Date [...] in the morning. 0 08/08/2021 Active Nystatin 248445 UNIT/GM External Powder (Nystop)Indications: Lydia rash of [...] XL)Indications:Non-i schemic cardiomyopathy (HCC),Coronary artery disease involving united [place] coronary artery of united [place] heart without angina pectoris,HTN, goal below 140/90 [...] disease, without long-term current use of insulin ([facility]),Type 2 diabetes mellitus with hemoglobin A1c goal of less than 8.0% ([facility]) TEST UP TO FOUR [...] Tablet 3 07/08/2023 Active OneTouch Delica Plus [id number] :Type 2 diabetes mellitus with hemoglobin A1c goal of less than 8.0% ([facility]) Test up to two times daily or as directed by [facility] pharmacist 200 Each 3 07/11/2023 [...] If no improvement on day 3, contact [facility] for possible home visit 1 Each [...] 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 Last Assessment & Plan: [facility] Triage Call: Reviewed last C&S - [...] Continue synthroid Coronary artery disease invo lving united [place]ub[place] coronary artery of united [place]ub[place] heart without angina pectoris 07/03/2012 Overview: 60% [...] mRNA, LNP-s, No Pre serve, 2-Dose Series ([employer]) 08/29/2021,10/23/2020,10/02/2020 COVID-19, MRNA-LNP, 23-24, P F, 30 MCG/0.3 mL, 12 YRS AND ABOVE, IM (Ruzuku-Comirnaty) 08/04/2023 Covid-19, Mrna, Lnp-s, Pf, B ivalent, 30 Mcg, IM, 12 yrs and above (Pfizer) 08/02/2022 Pneumococcal Conjugate Vacc, 13 Valent (Prevnar) [...] from the original note were not included. [facility] [place] Telephonic Nurse Follow-Up Call [facility] Subprogram: Primary Care at Home Follow [...] push her to drink. Disposition: Routed [place] [facility] [place] and/or [facility] at Home Care Team for further advice Future Visits Scheduled: Future Appointments-next 60 days Date/Time Provider Specialty Dept Phone 12/17/2023 10:00 AM Romel Mcclelland DO Ophthalmology [phone] 12/23/2023 10:00 AM Destiny Schultz, RN [facility] [phone] 03/30/2024 3:40 PM (Arrive by 3:25 PM) Verónica Benavides MD Family Medicine [phone] 04/21/2024 10:30 AM Chandler Pena MD Urology [phone] 11/24/2024 1:40 PM (Arrive by 1:25 PM) Sheryl Pena PA-C Dermatology [phone] Nanci Leiva, RN documented in this encounter Plan of Treatment Upcoming Encounters Date Type Department Care Team (Late st Contact Info) Description 12/17/2023 10:00 AM EDT Office Visit Ophthalmology, [facility] 132 [place] [address] Romel Mcclelland DO [address] [place] [address] 12/23/2023 10:00 AM EDT [facility] Visit [facility], [facility] 132 [facility] [place] [address] Destiny Schultz, POPPY 132 [facility] [place] [address] 03/30/2024 3:40 PM EDT Office Visit Family Medicine [address] [place] [phone] Verónica Benavides MD [address] [place] [address] [place] [address] 04/21/2024 10:30 AM EDT Telemedicine Urology, [facility] [place] [address] Chandler Pena MD [address] [facility] [address] [place] [address] 11/24/2024 1:40 PM EDT Office Visit Dermatology [address] [place] [address] Sheryl Pena PA-C [address] [place] [address] [place] [address] Health Maintenance Due Date Last Done Comments [...] Additional history exists CKD PHOS USE SMARTSET 09630 02/08/202401/23, 08/07/2021, 11/09/2019, Additional history exists TSH 03/25/2024 03/25/2023, 0710/2022, 10/28/2022, Additional history exists Influenza Vaccine (FLU shot) (Season Ended) 2024 06/20/2022, 06/20/2022, 06/29/2021, Additional history exists CKD HGB USE SMARTSET 64428 05/26/202405/263, 05/26/2023, 04/07/2023, Additional history exists Pneumococcal Vaccine: [...] Documents on File Type Date Recorded Patient Quality Eng Expl anation Advance Directives and Living Will 08/10/2021 ADVANCE DIRECTIVE / LIVING WILL LIVING WILL Healthcare Agents on File Name Relationship Healthcare Agent [facility] Communication Josselyn Judd Adult Child Health Care Power of Attor nathalie Care Teams Sand Buffer Relationship Specialty Start Date End Date Verónica Benavides MD [address] [place] [address] [place] [address] PCP - General Family Medicine 09/16/14 documented as of this encounter
--- OUTSIDE RECORDS SUMMARY | 2023-12-10 00:30 | External Medical Summary | Summary of Care ---
Author Name Unknown Organization [facility] Address [address] [place] [address] Phone [phone] Care Team Providers Care Ore Crushing Dust Collector Name Role Phone Verónica Benavides MD Primary Care Provide r Reason for Visit * Reason Onset Date Comments [facility]: Maintenance 12/02/2023 Encounter Details Date Type Department Care Team (Late st Contact Info) Description 12/02/2023 3:15 PM EDT Scheduled Telephone [facility], [facility] 132 [facility] [place] [address] Coordinator, [facility] 132 [facility] [place] [address] Allergies Active Allergy Reactions Criticality Noted Date Comments Adhesive Tape Medium 01/30/2022 Ibuprofen Hives 01/13/2012 Aspirin Hives,Rash 09/15/2000 Sulfamethoxazole-Trimeth oprim Nausea/vomiting,Othe r (Please comment) 10/27/2020 Dizziness Ciprofloxacin Hcl 06/16/2019 Hoarse, dizzy,disoriented Morphine 09/21/2021 Blacked out Penicillins Hives,Rash 09/15/2000 Prednisone 12/30/2017 Weakness/memory changes/blurred vision documented as of this encounter (statuses as of 12/02/2023) Medications Medication Sig Dispensed Refills Start Date [...] in the morning. 0 08/08/2021 Active Nystatin 948859 UNIT/GM External Powder (Nystop)Indications: Lydia rash of [...] XL)Indications:Non-i schemic cardiomyopathy (HCC),Coronary artery disease involving kas[place] coronary artery of kasigl[place] heart without angina pectoris,HTN, goal below 140/90 [...] disease, without long-term current use of insulin ([facility]),Type 2 diabetes mellitus with hemoglobin A1c goal of less than 8.0% ([facility]) TEST UP TO FOUR TIMES DAILY 400 [...] Tablet 3 07/08/2023 Active OneTouch Delica Plus [id number] :Type 2 diabetes mellitus with hemoglobin A1c goal of less than 8.0% ([facility]) Test up to two times daily or as directed by [facility] pharmacist 200 Each 3 07/11/2023 Active [...] If no improvement on day 3, contact [facility] for possible home visit 1 Each 0 11/28/2023 Active Meclizine HCl 25 MG Oral Tablet (Antivert)Indication s:Vertigo Take 1 tablet by mouth 3 times a day as needed for dizziness 30 Tablet 5 11/28/2023 Active documented as of this encounter (statuses as of 12/02/2023) Active Problems Problem Noted Date Diagnosed Date [...] 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 Last Assessment & Plan: [facility] Triage Call: Reviewed last C&S - [...] Continue synthroid Coronary artery disease invo lving kas[place] coronary artery of kasigl[place] heart without angina pectoris 07/03/2012 Overview: 60% [...] as of this encounter (statuses as of 12/02/2023) Resolved Problems Problem Noted Date Diagnosed Date [...] as of this encounter (statuses as of 12/02/2023) Immunizations Name Administration Dates Next Due COVID-19 mRNA, LNP-s, No Pre serve, 2-Dose Series (Monogram) 08/29/2021,10/23/2020,10/02/2020 COVID-19, MRNA-LNP, 23-24, P F, 30 MCG/0.3 mL, 12 YRS AND ABOVE, IM ([employer]-Comirnaty) 08/04/2023 Covid-19, Mrna, Lnp-s, Pf, B ivalent, [...] Telephone Encounter - Nanci Leiva RN - 12/02/2023 8:58 AM EDT Images from the original note were not included. [facility] Subprogram: Primary Care at Home Follow Up Call Type: 24 hour follow up Acute issue requiring follow-up call: Other: Post DTP, Urine results PENDING CULTURE & SENSITIVITY Objective: 11/11/2023 2:14 PM 10/31/2023 2:19 PM [...] dose adjustments made during acute episode , DTP completed 11/29 Subjective: Condition Status: No change in symptoms Current Concerns: NO change in symptoms, remains confused. Very weak, not eating well. Urine remains unchanged. Awarewe are awaiting urine culture. Instructed to push fluids Disposition: Follow up call scheduled for tomorrow with FIREPOT OPERATOR AND TENDER Financial Analyst Future Visits Scheduled: Future Appointments-next 60 days Date/Time Provider Specialty Dept Phone 12/02/2023 3:15 PM Coordinator, Lise Lepe [facility] [phone] 12/17/2023 10:00 AM Romel Mcclelland DO Ophthalmology [phone] 12/23/2023 10:00 AM Destiny Schultz, POPPY [facility] [phone] 03/30/2024 3:40 PM (Arrive by 3:25 PM) Verónica Benavides MD Family Medicine [phone] 04/21/2024 10:30 AM Chandler Pena MD Urology [phone] 11/24/2024 1:40 PM (Arrive by 1:25 PM) Sheryl Pena PA-C Dermatology [phone] Nanci Leiva RN documented in this encounter Plan of Treatment Upcoming Encounters Date Type Department Care Team (Late st Contact Info) Description 12/03/2023 12:15 PM EDT Scheduled Telephone [facility] [place], [facility] [address] [place] [address] Coordinator, Lise Lepe [address] [place] [address] 12/17/2023 10:00 AM EDT Office Visit Ophthalmology, [facility] [address] [place] [address] Romel Mcclelland DO 16 [facility] [place] [address] 12/23/2023 10:00 AM EDT [facility] Visit [facility] [place], [facility] 132 [place] [address] Destiny Schultz, POPPY 132 [facility] [place] [address] 03/30/2024 3:40 PM EDT Office Visit Family Medicine [address] [place] [phone] Verónica Benavides MD [address] [place] [address] [place] [address] 04/21/2024 10:30 AM EDT Telemedicine Urology, [facility] 132 [facility] [place] [address] Chandler Pena MD [address] [facility] [address] [place] [address] 11/24/2024 1:40 PM EDT Office Visit Dermatology [address] [place] [address] Sheryl Pena PA-C [address] [place] [address] [place] [address] Health Maintenance Due Date Last Done Comments [...] Additional history exists CKD PHOS USE SMARTSET 01341 02/08/202401/23, 08/07/2021, 11/09/2019, Additional history exists TSH 03/25/2024 03/25/2023, 07/0 10/2022, 10/28/2022, Additional history exists Influenza Vaccine (FLU shot) (Season Ended) 2024 06/20/2022, 06/20/2022, 06/29/2021, Additional history exists CKD HGB USE SMARTSET 79025 05/26/202405/26, 05/26/2023, 04/07/2023, Additional history exists Pneumococcal [...] Not on filedocumented as of this encounter Advance Directives Documents on File Type Date Recorded Patient 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
--- OUTSIDE RECORDS SUMMARY | 2023-12-10 00:30 | External Medical Summary | Summary of Care ---
Author Name Unknown Organization [facility] Address [address] [place] [address] Phone [phone] Care Team Providers Care Captain Fire Prevention Bureau Name Role Phone Verónica Benavides MD Primary Care Provide r Reason for Visit * Reason Onset Date Comments [facility]: Maintenance 12/03/2023 Encounter Details Date Type Department Care Team (Late st Contact Info) Description 12/03/2023 12:15 PM EDT Scheduled Telephone [facility], [facility] 132 [facility] [place] [address] Coordinator, [facility] 132 [facility] [place] [address] Allergies Active Allergy Reactions Criticality Noted Date [...] in the morning. 0 08/08/2021 Active Nystatin 519470 UNIT/GM External Powder (Nystop)Indications: Lydia rash of [...] XL)Indications:Non-i schemic cardiomyopathy (HCC),Coronary artery disease involving af[place] coronary artery of afognak heart without angina pectoris,HTN, goal below 140/90 [...] disease, without long-term current use of insulin ([facility]),Type 2 diabetes mellitus with hemoglobin A1c goal of less than 8.0% ([facility]) TEST UP TO FOUR TIMES DAILY [...] Tablet 3 07/08/2023 Active OneTouch Delica Plus [id number] :Type 2 diabetes mellitus with hemoglobin A1c goal of less than 8.0% ([facility]) Test up to two times daily or as directed by [facility] pharmacist 200 Each 3 07/11/2023 [...] If no improvement on day 3, contact [facility] for possible home visit 1 Each 0 [...] 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 Last Assessment & Plan: [facility] Triage Call: Reviewed last C&S - treated [...] Continue synthroid Coronary artery disease invo lving afognak coronary artery of afognak heart without angina pectoris 07/03/2012 Overview: 60% [...] mRNA, LNP-s, No Pre serve, 2-Dose Series ([employer]) 08/29/2021,10/23/2020,10/02/2020 COVID-19, MRNA-LNP, 23-24, P F, 30 MCG/0.3 mL, 12 YRS AND ABOVE, IM ([employer]ion-Comirnaty) 08/04/2023 Covid-19, Mrna, Lnp-s, Pf, B ivalent, [...] [facility] Telephonic Nurse Follow-Up Call [facility] Subprogram: Primary Care at Home Follow Up [...] push her to drink. Disposition: Routed to [facility] and/or [facility] at Home Care Team for further advice Future Visits Scheduled: Future Appointments-next 60 days Date/Time Provider Specialty Dept Phone 12/17/2023 10:00 AM Romel Mcclelland DO Ophthalmology [phone] 12/23/2023 10:00 AM Destiny Schultz RN [facility] [phone] 03/30/2024 3:40 PM (Arrive by 3:25 PM) Verónica Benavides MD Family Medicine [phone] 04/21/2024 10:30 AM Chandler Pena MD Urology [phone] 11/24/2024 1:40 PM (Arrive by 1:25 PM) Sheryl Pena PA-Antonio Dermatology [phone] Nanci Leiva RN documented in this encounter Plan of Treatment Upcoming Encounters Date Type Department Care Team (Late st Contact Info) Description 12/17/2023 10:00 AM EDT Office Visit Ophthalmology, [facility] 132 [facility] [place] [address] Romel Mcclelland DO [address] [place] [address] [place] [address] 12/23/2023 10:00 AM EDT Home Visit [facility] [place], [facility] 132 [facility] [place] [address] Destiny Schultz, RN [address] [place] [address] 03/30/2024 3:40 PM EDT Office Visit Family Medicine [address] [place] [phone] Verónica Benavides MD [address] [place] [address] [place] [address] 04/21/2024 10:30 AM EDT Telemedicine Urology, [facility] [place] [address] Chandler Pena MD 27 [facility] [address] [place] [address] 11/24/2024 1:40 PM EDT Office Visit Dermatology [address] [place] [address] Sheryl Pena PA-C [address] [place] [address] [place] [address] Health Maintenance Due Date Last Done Comments [...] , 03/10/2021, Additional history exists Albumin/Creatinine Ratio 02/08/202402/07/2 023, 01/18/2022, 12/23/2017, Additional history exists CKD PHOS USE SMARTSET 00851 02/08/202401/23, 08/07/2021, 11/09/2019, Additional history exists TSH 03/25/2024 03/25/2023, 07/0 10/2022, 10/28/2022, Additional history exists Influenza Vaccine (FLU shot) (Season Ended) 2024 06/20/2022, 06/20/2022, 06/29/2021, Additional history exists CKD HGB USE SMARTSET 88305 05/26/202405/26, 05/26/2023, 04/07/2023, Additional history exists Pneumococcal [...] Documents on File Type Date Recorded 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
--- OUTSIDE RECORDS SUMMARY | 2023-12-10 00:31 | External Medical Summary | Summary of Care ---
Author Name Unknown Organization [facility] Address [address] [place] [address] Phone [phone] Care Team Providers Care Medical Genetics Director Name Role Phone Verónica Benavides MD Primary Care Provide r Reason for Visit * Reason Onset Date Comments [facility]: Acute 11/28/2023 Encounter Details Date Type Department Care Team (Late st Contact Info) Description 11/28/2023 Telephone [facility], [facility] [address] [facility] [place] [address] Region, Nurse [address] [place] [address] [facility]: Acute Allergies Active Allergy Reactions Criticality Noted Date Comments Adhesive Tape Medium 01/30/2022 Ibuprofen Hives 01/13/2012 Aspirin Hives,Rash 09/15/2000 Sulfamethoxazole-Trimeth oprim Nausea/vomiting,Othe r (Please comment) 10/27/2020 Dizziness Ciprofloxacin Hcl 06/16/2019 Hoarse, dizzy,disoriented Morphine 09/21/2021 Blacked out Penicillins Hives,Rash 09/15/2000 Prednisone 12/30/2017 Weakness/memory changes/blurred vision documented as of this encounter (statuses as of 11/28/2023) Medications Medication Sig Dispensed Refills Start Date [...] in the morning. 0 08/08/2021 Active Nystatin 508477 UNIT/GM External Powder (Nystop)Indications: Lydia rash of groin Apply topically to affected area 2 times a day . 60 g 11 01/03/2022 Active Additional Information Patient not taking.Reported on 10/22/2023 Probiotic Acidophilus BioBeads Oral Capsule Take 1 Capsule by mouth every evening. Just with antibiotics 0 Active Meclizine HCl 25 MG Oral Tablet (Antivert)Indication s:Vertigo Take 1 tablet by mouth 3 times a day as needed for dizziness 30 Tablet 5 09/09/2022 Active D-Mannose 500 MG Oral Capsule Take [...] XL)Indications:Non-i schemic cardiomyopathy (HCC),Coronary artery disease involving point [place] ira coronary artery of [place] heart without angina pectoris,HTN, goal below 140/90 [...] Tablet 3 07/08/2023 Active OneTouch Delica Plus [id number] :Type 2 diabetes mellitus with hemoglobin A1c goal of less than 8.0% ([facility]) Test up to two times daily or as directed by [facility] pharmacist 200 Each 3 07/11/2023 Active [...] If no improvement on day 3, contact [facility] for possible home visit 1 Each 0 11/28/2023 Active documented as of this encounter (statuses as of 11/28/2023) Active Problems Problem Noted Date Diagnosed Date [...] 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 Last Assessment & Plan: [facility] Triage Call: Reviewed last C&S [...] Continue synthroid Coronary artery disease invo lving point hope ira coronary artery of point [place] ir[place] heart without angina pectoris 07/03/2012 Overview: 60% [...] as of this encounter (statuses as of 11/28/2023) Resolved Problems Problem Noted Date Diagnosed Date [...] wrist 11/17/2017 04/30/2018 BMI 45.0-49.9, adult 03/26/2017 05/01/2 018 Kidney disease, chronic, sta ge III [...] as of this encounter (statuses as of 11/28/2023) Immunizations Name Administration Dates Next Due COVID-19 mRNA, LNP-s, No Pre serve, 2-Dose Series ([employer]) 08/29/2021,10/23/2020,10/02/2020 COVID-19, MRNA-LNP, 23-24, P F, 30 MCG/0.3 mL, 12 YRS AND ABOVE, IM ([employer]) 08/04/2023 Covid-19, Mrna, Lnp-s, Pf, B ivalent, [...] encounter Miscellaneous Notes * Addendum Note - Karthikeyan Chaudhari DO - 11/28/2023 11:39 AM EDTAddended by: KARTHIKEYAN CHUADHARI on: 11/28/2023 11:39 AM Modules accepted: Orders * Telephone Encounter - Karthikeyan Chaudhari DO - 11/28/2023 11:39 AM EDT [facility] Prabhakar Galvez Subprogram: [facility] at Home Recommendations: Agree with DTP - offical order placed Orders: Plan DIURETIC TITRATION PLAN To Do: Please see below for follow up items to be completed and correspondence: FYI to Regla's Care Team Agree with advice given and plan of care. No further action needed. Routed to sender as an FYI thatmessage was addressed. Karthikeyan Chaudhari DO [facility] - [facility] 11/28/2023 Scheduled appointments in the next 60 days: Future Appointments-next 60 days Date/Time Provider Specialty Dept Phone 11/30/2023 9:30 AM Celina, Nurse Lise Hickory [facility] [phone] 12/17/2023 10:00 AM Romel Mcclelland DO Ophthalmology [phone] 12/23/2023 10:00 AM Destiny Schultz RN [facility] [phone] 03/30/2024 3:40 PM (Arrive by 3:25 PM) Verónica Benavides MD Family Medicine [phone] 04/21/2024 10:30 AM Chandler Pena MD Urology [phone] 11/24/2024 1:40 PM (Arrive by 1:25 PM) Sheryl Pena PA-C Dermatology [phone] * Telephone Encounter - Nigel Cosme MD - 11/28/2023 11:32 AM EDT Agree with recommendations as written in note. E * Telephone Encounter - Sondra Sandra RN - 11/28/2023 11:07 AM EDT [facility] Acute Call Date: 11/28/2023 Time: 11:07 AM Name: Regla Castano : 1935 Caller: Daughter Josselyn Relationship to Chief Complaint Patient presents with [facility]: Acute HPI: Regla Castano is a 88 year old female whose daughter and CG Josselyn is calling [facility] to report Pt had extra Easter foods and has had a weight gain since Friday. Mon- 239 Tues 238.4 Thurs 237.0 Fri 237.2 Pt baseline weight is reported at 233- 234 lbs. She has some SOB and edema in the legs. Daughter is calling to inform [facility] that she is instituting DTP which is Torsemide extra 20 mg in thepm daily x 3 days. Total dosing for DTP is 60 mg BID x 3 days. Pt also has Mewtalozone in the home but has not taken this recently and daughter does not feel pt needs this. Advised daughter to go ahead with DTP dose of Torsemide in pm x days. Weekend PC scheduled. Pt takes KCL 20 MEQ po BID. No wheezing or cough reported. No RPM Nursing Assessment: Patient's chief complaint for this call: Edema Shortness of breath Pain Denies pain Baseline Assessment Able to performing ADLs at baseline (walking, daily tasks, etc.): Yes Chief Complaint is related to a chronic condition: Yes Chronic Condition: HF Chief Complaint is a change in baseline: Yes, weight gain of 4 lbs since Patient prescribed oxygen? No Patient has been ordered DME equipment (assistive devices, respiratory equipment, etc.): Yes Describe DME devices: Walker Patient is using DME device as directed: Yes Medication Reconciliation: (See medication list) Received flu shot this season: Unknown Taking medication as ordered: Yes Medications ordered/taking to treat reason for call: No Heart failure symptoms: Yes Is Diuretic Titration Protocol (DTP) ordered? Yes Describe Diuretic Titration Protocol (DTP): Extra Torsemide 20 mg po in pm x 3 days. Total dose forDTP 60 mg po BID x 3 days Diuretic Titration Protocol (DTP) activated: Yes, date/time activated 11/28/23 @ 11:15 am COPD exacerbation symptoms: No Reinforcement Education: Call [facility] if sxs worsen or no change in weight; Weekend PC scheduled [facility] will call if there are any further recommednations. Follow low sodium <2,000 mg diet. Fluid limit of 64 oz/daily Treatment/Plan: (need to report) Level of call: Non-Acute Recommended treatment plan: Clinical advice given over the phone Routing to Care team and [facility] for any further recommendations. May need labs next week. No labs since 06/16. [facility] PC scheduled. Sondra Sandra RN [facility] Intake Triage Coordinator [phone] documented in this encounter Plan of Treatment Upcoming Encounters Date Type Department Care Team (Late st Contact Info) Description 11/30/2023 9:30 AM EDT Scheduled Telephone [facility] [place], [address] [place] [address] [facility], Nurse [place] [address] [facility] [address] 12/17/2023 10:00 AM EDT Office Visit Ophthalmology, [facility] [address] [facility] [place] [address] Romel Mcclelland T, DO [address] [place] [address] 12/23/2023 10:00 AM EDT Home Visit [facility], [facility] [address] [facility] [place] [address] Destiny Schultz RN [address] [place] [address] 03/30/2024 3:40 PM EDT Office Visit Family Medicine [address] [place] [phone] Verónica Benavides MD [address] [place] [address] [place] [address] 04/21/2024 10:30 AM EDT Telemedicine Urology, [facility] [address] [facility] [place] [address] Chandler Pena MD [address] [place] [address] [place] [address] 11/24/2024 1:40 PM EDT Office Visit Dermatology [address] [place] [address] Sheryl Pena PA-C [address] [place] [address] [place] [address] Health Maintenance Due Date Last Done Comments [...] Additional history exists CKD PHOS USE SMARTSET 56607 02/08/202401/23, 08/07/2021, 11/09/2019, Additional history exists TSH 03/25/2024 03/25/2023, 07/0 10/2022, 10/28/2022, Additional history exists Influenza Vaccine (FLU shot) (Season Ended) 2024 06/20/2022, 06/20/2022, 06/29/2021, Additional history exists CKD HGB USE SMARTSET 94403 05/26/202405/26, 05/26/2023, 04/07/2023, Additional history exists Pneumococcal [...] Documents on File Type Date Recorded Patient Can Capper Expl anation Advance Directives and Living Will 08/10/2021 ADVANCE DIRECTIVE / LIVING WILL LIVING WILL Healthcare Agents on File Name Relationship Healthcare Agent Relationshi p Communication Josselyn Judd Adult Child Health Care Power of Attor nathalie Care Teams Medical Genetics Director Relationship Specialty Start Date End Date Verónica Benavides MD [address] [place] [address] [place] [address] PCP - General Family Medicine 09/16/14 documented as of this encounter
--- OUTSIDE RECORDS SUMMARY | 2023-12-10 00:31 | External Medical Summary ---
Author Name Unknown Address Unknown Organization [id number]:[facility] [place] [address] [place] [address] Laboratory Report Ordering Provider Test Date Status JOSE ANTONIO MANN 12/01/2023 10:04:18 Final Observation Date Value Abnormality Reference (Units ) Status Bacteria identified in Specimen by Culture 12/01/2023 10:04:18 [id number]^ESCHE RICHIA COLI ESBL Abnormal Final >100,000 colonies/mL Escheri dianne coli ESBL producing organism, This patient may require isolation.
This gram negative bacilli displays in vitro resistance to multiple antibiotics. This patient may require isolation. Carbapenem use is preferred. Contact infectious disease service for further recommendations. Performing Location [facility] - [address] [place] [address] Ordering Provider Test Date Status JOSE ANTONIO MANN 12/01/2023 10:04:18 Final Observation Date Value Abnormality Reference (Units ) Status Ampicillin 12/01/2023 10:04:18 >=32 Resistant Final Ampicillin + Sulbactam 12/01/2023 10:04:18 16 Intermediate Final Cefazolin 12/01/2023 10:04:18 >=64 Resistant Final Cefepime susceptibility 12/01/2023 10:04:18 Susceptible Final This is an appended report. These results have been appended to a previously preliminary verified report. cefOXitin [Susceptibility] 12/01/2023 10:04:18 16 Int ermediate Final Ceftriaxone suceptibility 12/01/2023 10:04:18 >=64 Resi stant Final Ciprofloxacin 12/01/2023 10:04:18 0.5 Intermediate Final Due to serious side effects, the FDA has advised against using Ciprofloxacin to treat uncomplicated UTIs and respiratory tract infections unless there are no alternative treatment options. Gentamicin susceptibility 12/01/2023 10:04:18 <=1 Susc eptible Final Levofloxacin susceptibility 12/01/2023 10:04:18 1 In termediate Final Due to serious side effects, the FDA has advised against using Levofloxacin to treat uncomplicated UTIs and respiratory tract infections unless there are no alternative treatment options. Meropenem [Susceptibility] 12/01/2023 10:04:18 <=0.25 Katie ceptible Final Nitrofurantoin susceptibility 12/01/2023 10:04:18 256 Resistant Final Piperacillin + Tazobactamsusceptibility 12/01/2023 10:04:18 <=4 Susceptible Final TMP-SMZ susceptibility 12/01/2023 10:04:18 <=20 Suscept ible Final Performing Location [facility] - [address] [place] [address] Ordering Provider Test Date Status JOSE ANTONIO MANN 12/01/2023 10:04:18 Final Observation Date Value Abnormality Reference (Units ) Status Ertapenem [Susceptibility] 12/01/2023 10:04:18 29 Susceptible Susceptible >21 , Intermediate <=21 , Resistant <=18 Final Test: Culture, Urine, Quanti tative
Specimen Source: Urine, Catheter
Specimen Type: Urine
Specimen Date: 12/01/2023 10:04 AM
Result Date: 12/04/2023 2:33 PM
Result Status: Final result
Abnormal: Yes
Resulting Lab: [facility]ATORY [facility]
[address]
[place] [address]

CULTURE

>100,000 colonies/mL Escherichia coli ESBL producing organism, This patient may
require isolation. (Abnormal)

This gram negative bacilli displays in vitro resistance to multiple
antibiotics. This patient may require isolation. Carbapenem use is
preferred. Contact infectious disease service for further recommendations.

SUSCEPTIBILITY

Escherichia coli ESBL producing
organism, This patient may require
isolation.
METHOD ANDREW CASTILLO

AMPICILLIN
AMPICILLIN/SULBACTAM
CEFAZOLIN
CEFEPIME
CEFOXITIN
CEFTRIAXONE
CIPROFLOXACIN
ERTAPENEM 29 Susceptible
GENTAMICIN
LEVOFLOXACIN
MEROPENEM
NITROFURANTOIN
PIPERACILLIN TAZOBACTAM
TRIMETH/SULFAMETHOXAZOLE

Escherichia coli ESBL producing
organism, This patient may require
isolation.
METHOD MICROBROTH DILUTIONS

AMPICILLIN >=32 Resistant
AMPICILLIN/SULBACTAM 16 Intermediate
CEFAZOLIN >=64 Resistant
CEFEPIME -- Susceptible - Dose Dependent
CEFOXITIN 16 Intermediate
CEFTRIAXONE >=64 Resistant
CIPROFLOXACIN 0.5 Intermediate
ERTAPENEM
GENTAMICIN <=1 Susceptible
LEVOFLOXACIN 1 Intermediate
MEROPENEM <=0.25 Susceptible
NITROFURANTOIN 256 Resistant
PIPERACILLIN TAZOBACTAM <=4 Susceptible
TRIMETH/SULFAMETHOXAZOLE <=20 Susceptible

[facility] Location [facility] - [address] [place] [address]
--- OUTSIDE RECORDS SUMMARY | 2023-12-10 00:31 | External Medical Summary | Summary of Care ---
Author Name Unknown Organization [facility] Address [address] [place] [address] Phone [phone] Care Team Providers Care Slot Operations Manager Name Role Phone Verónica Benavides MD Primary Care Provide r Reason for Visit * Reason Comments Outpatient Testing Encounter Details Date Type Department Care Team (Late st Contact Info) Description 12/01/2023 10:10 AM EDT Laboratory Laboratory [address] [place] [address] , Specimen Drop Off [address] [place] [id number] Arrived Allergies Active Allergy Reactions Criticality Noted Date Comments Adhesive Tape Medium 01/30/2022 Ibuprofen Hives 01/13/2012 Aspirin Hives,Rash 09/15/2000 Sulfamethoxazole-Trimeth oprim Nausea/vomiting,Othe r (Please comment) 10/27/2020 Dizziness Ciprofloxacin Hcl 06/16/2019 Hoarse, dizzy,disoriented Morphine 09/21/2021 Blacked out Penicillins Hives,Rash 09/15/2000 Prednisone 12/30/2017 Weakness/memory changes/blurred vision documented as of this encounter (statuses as of 12/01/2023) Medications Medication Sig Dispensed Refills Start Date [...] in the morning. 0 08/08/2021 Active Nystatin [id number] UNIT/GM External Powder (Nystop)Indications: Lydia rash of [...] XL)Indications:Non-i schemic cardiomyopathy (HCC),Coronary artery disease involving ho-chunk coronary artery of ho-chunk heart without angina pectoris,HTN, goal below 140/90 [...] long-term current use of insulin ([facility]),Type 2 diabetes mellitus with hemoglobin A1c goal of less than 8.0% ([facility]) TEST UP TO FOUR TIMES DAILY 400 [...] Tablet 3 07/08/2023 Active OneTouch Delica Plus [id number] :Type 2 diabetes mellitus with hemoglobin A1c goal of less than 8.0% ([facility]) Test up to two times daily or as directed by [facility] pharmacist 200 Each 3 07/11/2023 Active Estrogens [...] If no improvement on day 3, contact [facility] for possible home visit 1 Each 0 11/28/2023 Active Meclizine HCl 25 MG Oral Tablet (Antivert)Indication s:Vertigo Take 1 tablet by mouth 3 times a day as needed for dizziness 30 Tablet 5 11/28/2023 Active documented as of this encounter (statuses as of 12/01/2023) Active Problems Problem Noted Date Diagnosed Date [...] 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 Last Assessment & Plan: [facility] Triage Call: Reviewed last C&S - [...] Continue synthroid Coronary artery disease invo lving ho-chunk coronary artery of ho-chunk heart without angina pectoris 07/03/2012 Overview: 60% [...] as of this encounter (statuses as of 12/01/2023) Resolved Problems Problem Noted Date Diagnosed Date [...] as of this encounter (statuses as of 12/01/2023) Immunizations Name Administration Dates Next Due COVID-19 mRNA, LNP-s, No Pre serve, 2-Dose Series ([employer]) 08/29/2021,10/23/2020,10/02/2020 COVID-19, MRNA-LNP, 23-24, P F, 30 MCG/0.3 mL, 12 YRS AND ABOVE, IM ([employer]) 08/04/2023 Covid-19, Mrna, Lnp-s, Pf, B ivalent, 30 Mcg, IM, 12 yrs and above ([employer]) 08/02/2022 Pneumococcal Conjugate Vacc, 13 Valent (Prevnar) [...] on file documented as of this encounter Plan of Treatment Upcoming Encounters Date Type Department Care Team (Late st Contact Info) Description 12/01/2023 1:00 PM EDT Scheduled Telephone [facility] [place] [address] Coordinator, [facility] [address] [facility] [place] [address] 12/17/2023 10:00 AM EDT Office Visit Ophthalmology, [facility] [address] [facility] [place] [address] Romel Mcclelland, DO [address] [place] [address] 12/23/2023 10:00 AM EDT [facility] [address] [facility] [place] [address] Destiny Schultz, POPPY [address] [facility] [place] [address] 03/30/2024 3:40 PM EDT Office Visit Family Medicine [address] [place] [phone] Verónica Benavides MD [address] [place] [address] [place] [address] 04/21/2024 10:30 AM EDT Telemedicine Urology, [facility] [address] [place] [address] Chandler Pena MD [address] [facility] [place] [address] [place] [address] 11/24/2024 1:40 PM EDT Office Visit Dermatology [address] [place] [address] Sheryl Pena PA-C [address] [place] [address] [place] [address] Health Maintenance Due Date Last Done Comments [...] Additional history exists CKD PHOS USE SMARTSET 92613 02/08/202401/23, 08/07/2021, 11/09/2019, Additional history exists TSH 03/25/2024 03/25/2023, 07/0 10/2022, 10/28/2022, Additional history exists Influenza Vaccine (FLU shot) (Season Ended) 2024 06/20/2022, 06/20/2022, 06/29/2021, Additional history exists CKD HGB USE SMARTSET 89462 05/26/202405/26, 05/26/2023, 04/07/2023, Additional history exists Pneumococcal [...] Documents on File Type Date Recorded Patient Hostage Negotiator Expl anation Advance Directives and Living Will 08/10/2021 ADVANCE DIRECTIVE / LIVING WILL LIVING WILL Healthcare Agents on File Name Relationship Healthcare Agent [facility] Communication Josselyn Judd Adult Child Health Care Power of Attor nathalie Care Teams Slot Operations Manager Relationship Specialty Start Date End Date Verónica Benavides MD [address] [place] [address] [place] [address] PCP - General Family Medicine 09/16/14 documented as of this encounter
--- OUTSIDE RECORDS SUMMARY | 2023-12-10 00:31 | External Medical Summary | Summary of Care ---
Author Name Unknown Organization [facility] Address [address] [place] [address] Phone [phone] Care Team Providers Care Sewing Machine Repairer Name Role Phone Verónica Benavides MD Primary Care Provide r Reason for Visit * Reason Onset Date Comments [facility]: Maintenance 11/30/2023 Encounter Details Date Type Department Care Team (Late st Contact Info) Description 11/30/2023 9:30 AM EDT Scheduled Telephone [facility], [facility] [address] [place] [address] [facility], Nurse [facility] [address] [place] [address] UTI symptoms* Allergies Active Allergy Reactions Criticality Noted Date Comments Adhesive Tape Medium 01/30/2022 Ibuprofen Hives 01/13/2012 Aspirin Hives,Rash 09/15/2000 Sulfamethoxazole-Trimeth oprim Nausea/vomiting,Othe r (Please comment) 10/27/2020 Dizziness Ciprofloxacin Hcl 06/16/2019 Hoarse, dizzy,disoriented Morphine 09/21/2021 Blacked out Penicillins Hives,Rash 09/15/2000 Prednisone 12/30/2017 Weakness/memory changes/blurred vision documented as of this encounter (statuses as of 11/30/2023) Medications Medication Sig Dispensed Refills Start Date [...] in the morning. 0 08/08/2021 Active Nystatin 945948 UNIT/GM External Powder (Nystop)Indications: Lydia rash of [...] XL)Indications:Non-i schemic cardiomyopathy (HCC),Coronary artery disease involving lime coronary artery of lime heart without angina pectoris,HTN, goal below 140/90 [...] disease, without long-term current use of insulin ([facility]),Type 2 diabetes mellitus with hemoglobin A1c goal of less than 8.0% ([facility]) TEST UP TO FOUR TIMES DAILY [...] Tablet 3 07/08/2023 Active OneTouch Delica Plus [id number] :Type 2 diabetes mellitus with hemoglobin A1c goal of less than 8.0% ([facility]) Test up to two times daily or as directed by [facility] pharmacist 200 Each 3 07/11/2023 [...] If no improvement on day 3, contact [facility] for possible home visit 1 Each 0 11/28/2023 Active Meclizine HCl 25 MG Oral Tablet (Antivert)Indication s:Vertigo Take 1 tablet by mouth 3 times a day as needed for dizziness 30 Tablet 5 11/28/2023 Active documented as of this encounter (statuses as of 11/30/2023) Active Problems Problem Noted Date Diagnosed Date [...] 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 Last Assessment & Plan: [facility] Triage Call: Reviewed last C&S - [...] Continue synthroid Coronary artery disease invo lving lime coronary artery of lime heart without angina pectoris 07/03/2012 Overview: 60% [...] as of this encounter (statuses as of 11/30/2023) Resolved Problems Problem Noted Date Diagnosed Date [...] as of this encounter (statuses as of 11/30/2023) Immunizations Name Administration Dates Next Due COVID-19 mRNA, LNP-s, No Pre serve, 2-Dose Series ([employer]) 08/29/2021,10/23/2020,10/02/2020 COVID-19, MRNA-LNP, 23-24, P F, 30 MCG/0.3 mL, 12 YRS AND ABOVE, IM ([employer]) 08/04/2023 Covid-19, Mrna, Lnp-s, Pf, B ivalent, [...] encounter Miscellaneous Notes * Telephone Encounter - Morales, Rebecca Staples RN - 11/30/2023 2:[address] [facility]-Up Call [facility] Subprogram: Primary Care at Home Follow Up Call Type: Weekend Call 1526:PC to M # daughter Josselyn Spoke with Josselyn. Patient identified by full name and date of Acute issue requiring follow-up call: Heart Failure Exacerbation f/u DTP x 3 days 11/27,, Objective: 11/11/2023 2:14 PM 10/31/2023 2:19 PM 10/22/2023 2:01 PM 09/10/2023 1:31 PM 07/29/2023 2:56 PM VITALS ACROSS ENCOUNTERS BP 122/64 108/60 116/74 104/76 108/68 Pulse 62 68 68 72 72 Weight 108 kg 107 kg 106.1 kg 106.1 kg BMI 44.97 kg/m2 44.59 kg/m2 44.21 kg/m2 44.21 kg/m2 Remote Patient Monitoring: NONE Oxygen Needs: NO supplemental oxygen needs identified DME Needs: NO DME needs identified Medications: Current DTP: Add additional 1 tab to evening dose of Torsemide = DTP of Torsemide 60 mg BID x 3 days Has metolazone 2.5 mg if primary DTP ineffective (no recent use) Subjective: Condition Status: Improvement in symptoms but not at baseline and New symptoms Current Concerns: per EPIC Weights 4/ -239 4/2 -238.4 / -237 4/5 -237.2 11/29 -234.2 - last day of DTP, - 4.8 lbs since DTP started Now has UTI symptoms - murky,malodorous urine. Legs weak/heavy, dizzy, decreased concentration Daughter reports urology - Dr Chandler Pena decreased macrobid to daily dosing x ~ 3 weeks ago (hadbeen on BID dosing prior) Requesting urine testing - order placed. Disposition: Follow up call scheduled for tomorrow with [facility] Storehouse Clerk - asked that they share urine results with Dr Chandler Pena - Urology Future Visits Scheduled: Future Appointments-next 60 days Date/Time Provider Specialty Dept Phone 12/17/2023 10:00 AM Romel Mcclelland, DO Ophthalmology [phone] 12/23/2023 10:00 AM Destiny Schultz RN [facility] [phone] 03/30/2024 3:40 PM (Arrive by 3:25 PM) Verónica Benavides MD Family Medicine [phone] 04/21/2024 10:30 AM Chandler Pena MD Urology [phone] 11/24/2024 1:40 PM (Arrive by 1:25 PM) Sheryl Pena PA-C Dermatology [phone] Rosalina Nielsen RN [facility] Director Of Housing/ [place] Toll Free Number: documented in this encounter Plan of Treatment Upcoming Encounters Date Type Department Care Team (Late st Contact Info) Description 12/01/2023 1:00 PM EDT Scheduled Telephone [facility], [facility] [address] [place] [address] Coordinator, [facility] [address] [place] [address] 12/17/2023 10:00 AM EDT Office Visit Ophthalmology, [facility] 132 [facility] [place] [address] Romel [facility]cclelland[facility] [address] [facility] [address] 12/23/2023 10:00 AM EDT Home Visit [facility], [facility] 132 [facility] [place] [address] Destiny Schultz, POPPY 132 [facility] [place] [address] 03/30/2024 3:40 PM EDT Office Visit Family Medicine [address] [place] [phone] Verónica Benavides MD [address] [place] [address] [place] [address] 04/21/2024 10:30 AM EDT Telemedicine Urology, [facility] 132 [facility] [place] [address] Chandler Pena MD [address] [address] [place] [address] 11/24/2024 1:40 PM EDT Office Visit Dermatology [address] [place] [address] Sheryl Pena PA-C [address] [place] [address] [place] [address] Scheduled Orders Name Type Priority Associated Diagnoses Orde r Schedule URINALYSIS, REFLEX TO CULTUR E (NOT FOR NEUTROPENIC PATIENTS) Lab STAT UTI symptoms Ordered: 11/30/2023 Health Maintenance Due Date Last Done Comments [...] Additional history exists CKD PHOS USE SMARTSET 81171 02/08/202401/23, 08/07/2021, 11/09/2019, Additional history exists TSH 03/25/2024 03/25/2023, 07/0 10/2022, 10/28/2022, Additional history exists Influenza Vaccine (FLU shot) (Season Ended) 2024 06/20/2022, 06/20/2022, 06/29/2021, Additional history exists CKD HGB USE SMARTSET 71246 05/26/202405/26, 05/26/2023, 04/07/2023, Additional history exists Pneumococcal [...] involving urinary system documented in this encounter Advance Directives Documents on File Type Date Recorded Patient Second Hand Expl anation Advance Directives and Living Will 08/10/2021 ADVANCE DIRECTIVE / LIVING WILL LIVING WILL Healthcare Agents on File Name Relationship Healthcare Agent Relationshi p Communication Josselyn Judd Adult Child Health Care Power of Attor nathalie Care Teams Sewing Machine Repairer Relationship Specialty Start Date End Date Verónica Benavides MD [address] [place] [address] [place] [phone] PCP - General Family Medicine 09/16/14 documented as of this encounter
--- OUTSIDE RECORDS SUMMARY | 2023-12-10 00:31 | External Medical Summary | Summary of Care ---
Author Name Unknown Organization [facility] Address [address] [place] [address] Phone [phone] Care Team Providers Care Infectious Waste Technician Name Role Phone Verónica Benavides MD Primary Care Provide r Reason for Visit * Reason Onset Date Comments [facility]: Maintenance 12/01/2023 Encounter Details Date Type Department Care Team (Late st Contact Info) Description 12/01/2023 1:00 PM EDT Scheduled Telephone [facility], [facility] 132 [facility] [place] [address] Coordinator, [facility] 132 [facility] [place] [address] Allergies Active Allergy Reactions Criticality Noted Date [...] in the morning. 0 08/08/2021 Active Nystatin [id number] UNIT/GM External Powder (Nystop)Indications: Lydia rash of [...] XL)Indications:Non-i schemic cardiomyopathy (HCC),Coronary artery disease involving [place] apache coronary artery of [place] apache heart without angina pectoris,HTN, goal below 140/90 [...] disease, without long-term current use of insulin ([facility]),Type 2 diabetes mellitus with hemoglobin A1c goal of less than 8.0% ([facility]) TEST UP TO FOUR TIMES [...] Tablet 3 07/08/2023 Active OneTouch Delica Plus [id number] :Type 2 diabetes mellitus with hemoglobin A1c goal of less than 8.0% ([facility]) Test up to two times daily or as directed by [facility] pharmacist 200 Each 3 07/11/2023 Active [...] If no improvement on day 3, contact [facility] for possible home visit 1 Each [...] 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 Last Assessment & Plan: [facility] Triage Call: Reviewed last C&S - [...] Continue synthroid Coronary artery disease invo lving [place] apache coronary artery of [place] apache heart without angina pectoris 07/03/2012 Overview: 60% [...] mRNA, LNP-s, No Pre serve, 2-Dose Series ([employer]) 08/29/2021,10/23/2020,10/02/2020 COVID-19, MRNA-LNP, 23-24, P F, 30 MCG/0.3 mL, 12 YRS AND ABOVE, IM ([employer]) 08/04/2023 Covid-19, Mrna, Lnp-s, Pf, B ivalent, [...] encounter Miscellaneous Notes * Telephone Encounter - Beth Bailon RN - 12/01/2023 3:55 PM EDT [facility] Telephonic Nurse Follow-Up Call [facility] Subprogram: Primary Care at Home Follow Up Call Type: DTP finished 11/29. New urinary sxs Acute issue requiring follow-up call: Other: follow up on urinary symptoms/urine results Objective: 11/11/2023 2:14 PM 10/31/2023 2:19 PM [...] or dose adjustments made during acute episode completed DTP 11/30/23 Subjective: Condition Status: No change in symptoms and pt continues to have increased confusion, weakness. Spoke with daughter, Josselyn who reports that pt's weight was down yesterday. Finished DTP. Unsure of what her weight was today and is not with pt. Daughter dropped urine specimen off at lab this morningand is in process. Denies fever/chills. Still has foul smell to urine. Trying to remind pt to stay hydrated. Is on 1500 ml fluid restriction and hasn't been getting quite that much, but daughter willcontinue to encourage. Disposition: [facility] to continue to encourage adequate hydration Future Visits Scheduled: Future Appointments-next 60 days Date/Time Provider Specialty Dept Phone 12/17/2023 10:00 AM Romel Mcclelland DO Ophthalmology [phone] 12/23/2023 10:00 AM Destiny Schultz, POPPY [facility] [phone] 03/30/2024 3:40 PM (Arrive by 3:25 PM) Verónica Benavides MD Family Medicine [phone] 04/21/2024 10:30 AM Chandler Pena MD Urology [phone] 11/24/2024 1:40 PM (Arrive by 1:25 PM) Sheryl Pena PA-C Dermatology [phone] Beth Bailon, RN documented in this encounter Plan of Treatment Upcoming Encounters Date Type Department Care Team (Late st Contact Info) Description 12/02/2023 3:15 PM EDT Scheduled Telephone [facility] 132 [facility] [place] [address] Coordinator, [facility] [address] [place] [address] 12/17/2023 10:00 AM EDT Office Visit Ophthalmology, [facility] [address] [place] [address] Romel Mcclelland DO [address] [place] [address] [place] [address] 12/23/2023 10:00 AM EDT Home Visit [facility] [place], [facility] [address] [place] [address] Destiny Schultz, POPPY 132 [facility] [place] [address] 03/30/2024 3:40 PM EDT Office Visit Family Medicine [address] [place] [phone] Verónica Benavides MD [address] [place] [address] [place] [address] 04/21/2024 10:30 AM EDT Telemedicine Urology, [facility] [place] [address] Chandler Pena MD 27 [facility] [address] [place] [address] 11/24/2024 1:40 PM EDT Office Visit Dermatology [address] [place] [address] Sheryl Pena PA-C [address] [place] [address] [place] [address] Health Maintenance Due Date Last Done Comments [...] Additional history exists CKD PHOS USE SMARTSET 08338 02/08/202401/23, 08/07/2021, 11/09/2019, Additional history exists TSH 03/25/2024 03/25/2023, 07/0 10/2022, 10/28/2022, Additional history exists Influenza Vaccine (FLU shot) (Season Ended) 2024 06/20/2022, 06/20/2022, 06/29/2021, Additional history exists CKD HGB USE SMARTSET 14472 05/26/202405/26, 05/26/2023, 04/07/2023, Additional history exists Pneumococcal [...] Documents on File Type Date Recorded 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
--- OUTSIDE RECORDS SUMMARY | 2023-12-10 00:31 | External Medical Summary ---
Author Name Unknown Address Unknown Organization K01:[facility] [place] [address] [facility] [address] Laboratory Report Ordering Provider Test Date Status JOSE ANTONIO MANN 12/01/2023 10:04:18 Final Observation Date Value Abnormality Reference (Units ) Status Color of Urine by Auto 12/01/2023 10:04:18 Light Yellow Colorless, Light Yellow, Yellow, Dark Yellow Final Clarity, Urine 12/01/2023 10:04:18 Slightly Cloudy Abnormal Clear Final Glucose [Mass/volume] in Urine by Automated test strip 12/01/2023 10:04:18 Negative Negative (mg/dL) Final Bilirubin.total [Presence] in Urine by Automated test strip 12/01/2023 10:04:18 Negative Negative Final Ketones [Mass/volume] in Urine by Automated test strip 12/01/2023 10:04:18 Negative Negative (mg/dL) Final Specific gravity, Urine 12/01/2023 10:04:18 1.010 1.003-1.030 Final Hemoglobin [Presence] in Urine by Automated test strip 12/01/2023 10:04:18 Negative Negative Final pH, Urine 12/01/2023 10:04:18 6.0 5.0-7.5 (Units) Final Protein [Mass/volume] in Urine by Automated test strip 12/01/2023 10:04:18 Negative Negative (mg/dL) Final Urobilinogen [Mass/volume] in Urine by Automated test strip 12/01/2023 10:04:18 Normal Normal (mg/dL) Final Nitrite [Presence] in Urine by Automated test strip 12/01/2023 10:04:18 Negative Negative Final Leukocyte esterase [Presence] in Urine by Automated test strip 12/01/2023 10:04:18 Large Abnormal Negative Final RBC, Urine 12/01/2023 10:04:18 0-2 0-2 (/HPF) Final WBC, Urine 12/01/2023 10:04:18 50+ Abnormal 0-2 (/HPF) Final Bacteria [#/area] in Urine sediment by Microscopy high power field 12/01/2023 10:04:18 >200 Abnormal 0-25 (/HPF) Final Calcium oxalate crystals [#/area] in Urine sediment by Microscopy high power field 12/01/2023 10:04:18 10-19 Abnormal None (/HPF) Final Hyaline casts, Urine 12/01/2023 10:04:18 1-4 Abnormal None (/LPF) Final CULTURE, URINE - [facility] 12/01/2023 10:04:18 Final Quantitative urine culture t o be performed Performing Location [facility] [place] [facility] [address]. [facility] [address]
--- OUTSIDE RECORDS SUMMARY | 2023-12-10 00:31 | External Medical Summary | Summary of Care ---
Author Name Unknown Organization [facility] Address [address] [place] [address] Phone [phone] Care Team Providers Care Computer Technical Support Specialist Name Role Phone Verónica Benavides MD Primary Care Provide r Reason for Visit * Reason Onset Date Comments Medication Refill 11/28/2023 Re: Meclizine 25 MG Tablet Encounter Details Date Type Department Care Team (Late st Contact Info) Description 11/28/2023 Refill [facility], [facility] [address] [place] [facility] [place] [address] Karthikeyan Chaudhari DO [address] [place] [address] Vertigo Allergies Active Allergy Reactions Criticality Noted Date [...] in the morning. 0 08/08/2021 Active Nystatin 809825 UNIT/GM External Powder (Nystop)Indications :Lydia rash of [...] XL)Indications:Non- ischemic cardiomyopathy (HCC),Coronary artery disease involving hughes coronary artery of hughes heart without angina pectoris,HTN, goal below 140/90 [...] disease, without long-term current use of insulin ([facility]),Type 2 diabetes mellitus with hemoglobin A1c goal of less than 8.0% ([facility]) TEST UP TO FOUR TIMES DAILY [...] Tablet 3 07/08/2023 Active OneTouch Delica Plus [id number] s:Type 2 diabetes mellitus with hemoglobin A1c goal of less than 8.0% ([facility]) Test up to two times daily or as directed by [facility] pharmacist 200 Each 3 07/11/2023 Active [...] If no improvement on day 3, contact [facility] for possible home visit 1 Each 0 11/28/2023 Active Meclizine HCl 25 MG Oral Tablet (Antivert)Indicatio ns:Vertigo Take 1 tablet by mouth 3 times a day as needed for dizziness 30 Tablet 5 11/28/2023 Active Meclizine HCl 25 MG Oral Tablet (Antivert)Indicatio ns:Vertigo Take 1 tablet by mouth 3 times a day as needed for dizziness 30 Tablet 5 09/09/2022 4 Discontinu ed(Refill) documented as of this [...] 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 Last Assessment & Plan: [facility] Triage Call: Reviewed last C&S - [...] Continue synthroid Coronary artery disease invo lving hughes coronary artery of hughes heart without angina pectoris 07/03/2012 Overview: 60% [...] mRNA, LNP-s, No Pre serve, 2-Dose Series ([employer]) 08/29/2021,10/23/2020,10/02/2020 COVID-19, MRNA-LNP, 23-24, P F, 30 MCG/0.3 mL, 12 YRS AND ABOVE, IM ([employer]) 08/04/2023 Covid-19, Mrna, Lnp-s, Pf, B ivalent, 30 Mcg, IM, 12 yrs and above ([employer]) 08/02/2022 Pneumococcal Conjugate Vacc, 13 Valent (Prevnar) [...] encounter Miscellaneous Notes * Telephone Encounter - Karthikeyan Chaudhari DO - 11/28/2023 2:14 PM EDTSigned Prescriptions: Disp Refills Meclizine HCl 25 MG Oral Tablet (Antivert) 30 Tab*5 Sig: Take 1 tablet by mouth 3 times a day as needed for dizziness Authorizing Provider: KARTHIKEYAN CHAUDHARI * Telephone Encounter - Tonie Painting OSA - 11/28/2023 12:56 PM EDT Please authorize with refills, as appropriate. Thank you, BETTY Lyon documented in this encounter Plan of Treatment Upcoming Encounters Date Type Department Care Team (Late st Contact Info) Description 11/30/2023 9:30 AM EDT Scheduled Telephone [facility], [facility] 132 [facility] [place] [address] Region, Nurse [facility] [address] [facility] [place] [address] 12/17/2023 10:00 AM EDT Office Visit Ophthalmology, [facility] [address] [facility] [place] [address] Romel Mcclelland, [address] [address] 12/23/2023 10:00 AM EDT Home Visit [facility], [address] [place] [address] Destiny Schultz RN 132 [facility] [place] [address] 03/30/2024 3:40 PM EDT Office Visit Family Medicine [address] [place] [phone] Verónica Benavides MD [address] [place] [address] [place] [address] 04/21/2024 10:30 AM EDT Telemedicine Urology, [facility] 132 [facility] [place] [address] Chandler Pena MD [address] [place] [address] [place] [address] 11/24/2024 1:40 PM EDT Office Visit Dermatology [address] [place] [address] Sheryl Pena PA-C [address] [place] [address] [place] [address] Health Maintenance Due Date Last Done Comments [...] Additional history exists CKD PHOS USE SMARTSET 90987 02/08/202401/23, 08/07/2021, 11/09/2019, Additional history exists TSH 03/25/2024 03/25/2023, 07/0 10/2022, 10/28/2022, Additional history exists Influenza Vaccine (FLU shot) (Season Ended) 2024 06/20/2022, 06/20/2022, 06/29/2021, Additional history exists CKD HGB USE SMARTSET 42484 05/26/202405/26, 05/26/2023, 04/07/2023, Additional history exists Pneumococcal [...] as of this encounter Visit Diagnoses Diagnosis Vertigo Dizziness and giddiness documented in this encounter Advance Directives Documents on File Type Date Recorded Patient Lead Electrician Expl anation Advance Directives and Living Will 08/10/2021 ADVANCE DIRECTIVE / LIVING WILL LIVING WILL Healthcare Agents on File Name Relationship Healthcare Agent [facility] Communication Josselyn Judd [facility] Child Health Care Power of Attor nathalie Care Teams Computer Technical Support Specialist Relationship Specialty Start Date End Date Verónica Benavides MD [address] [place] [address] [place] [address] PCP - General Family Medicine 09/16/14 documented as of this encounter
--- OUTSIDE RECORDS SUMMARY | 2023-12-10 00:32 | External Medical Summary | Summary of Care ---
Author Name Unknown Organization [facility] Address [address] [place] [address] Phone [phone] Care Team Providers Care Packing Machine Operator Name Role Phone Verónica Benavides MD Primary Care Provide r Reason for Visit * Reason Onset Date Comments Advice 11/26/2023 Pacemaker transm ission Encounter Details Date Type Department Care Team (Late st Contact Info) Description 11/26/2023 Telephone Cardiology, [facility] [address] [facility] [place] [address] Hermann Heredia, [address] [place] [address] Advice (Pacemaker transmission) Allergies Active Allergy Reactions Criticality Noted Date Comments Adhesive Tape Medium 01/30/2022 Ibuprofen Hives 01/13/2012 Aspirin Hives,Rash 09/15/2000 Sulfamethoxazole-Trimeth oprim Nausea/vomiting,Othe r (Please comment) 10/27/2020 Dizziness Ciprofloxacin Hcl 06/16/2019 Hoarse, dizzy,disoriented Morphine 09/21/2021 Blacked out Penicillins Hives,Rash 09/15/2000 Prednisone 12/30/2017 Weakness/memory changes/blurred vision documented as of this encounter (statuses as of 11/26/2023) Medications Medication Sig Dispensed Refills Start Date [...] in the morning. 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 angina pectoris,HTN, goal below 140/90 [...] long-term current use of insulin ([facility]),Type 2 diabetes mellitus with hemoglobin A1c goal of less than 8.0% ([facility]) TEST UP TO FOUR TIMES [...] Tablet 3 07/08/2023 Active OneTouch Delica Plus [id number] :Type 2 diabetes mellitus with hemoglobin A1c goal of less than 8.0% ([facility]) Test up to two times daily or as directed by [facility] pharmacist 200 Each 3 07/11/2023 Active Torsemide 20 MG Oral Tablet (Demadex)Indications :Heart failure, systolic, due to idiopathic cardiomyopathy ([facility]) Take 60 mg by mouth in the morning, 40 mg by mouth in the afternoon. Additional 20 mg in the afternoon ONLY if directed by health care provider for weight gain of 3 lbs or more. 180 Tablet 3 07/11/2023 Active Estrogens Conjugated 0.625 MG/GM [...] evening meals. 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 Last Assessment & Plan: [facility] Triage Call: Reviewed last C&S [...] Continue synthroid Coronary artery disease invo lving menominee coronary artery of menominee heart without angina pectoris 07/03/2012 Overview: 60% [...] as of this encounter (statuses as of 11/26/2023) Resolved Problems Problem Noted Date Diagnosed Date [...] as of this encounter (statuses as of 11/26/2023) Immunizations Name Administration Dates Next Due COVID-19 mRNA, LNP-s, No Pre serve, 2-Dose Series ([employer] 08/29/2021,10/23/2020,10/02/2020 COVID-19, MRNA-LNP, 23-24, P F, 30 MCG/0.3 mL, 12 YRS AND ABOVE, IM ([facility]) 08/04/2023 Covid-19, Mrna, Lnp-s, Pf, B ivalent, 30 Mcg, IM, 12 yrs and above ([employer] 08/02/2022 Pneumococcal Conjugate Vacc, 13 Valent (Prevnar) [...] encounter Miscellaneous Notes * Telephone Encounter - Nirmala Sandoval LPN - 11/26/2023 9:27 AM EDT Spoke with patients daughter. Guidance provided on remote monitoring vs in office. Daughter prefershome monitoring due to patients mobility concerns. Transmission received on 11/24 shows 2 years on the battery, no events. Opitvol is elevated but daughter states patient has lymphedema. [facility] appointment in [facility] cancelled * Telephone Encounter - Peg Dc OSA - 11/26/2023 8:41 AM EDT Person calling: Josselyn Relationship to patient: Daughter Number to return call: [phone] Reason for call: Concerns on the transmission of the pacemaker. Pharmacy: N/A Provider Name:Giovanna documented in this encounter Plan of Treatment Upcoming Encounters Date Type Department Care Team (Late st Contact Info) Description 12/17/2023 10:00 AM EDT Office Visit Ophthalmology, [facility] 132 [facility] [place] [address] Romel Mcclelland, DO [address] [place] [address] [place] [address] 12/23/2023 10:00 AM EDT [facility] Visit [facility], [facility] [address] [facility] [place] [address] Destiny Schultz RN [address] [place] [address] 01/06/2024 1:30 PM EDT Cardiac Studies Cardiology [address] [place] [address] [facility] [place] [address] 03/30/2024 3:40 PM EDT Office Visit Family Medicine [address] [place] [phone] Verónica Benavides MD [address] [place] [address] [place] [address] 04/21/2024 10:30 AM EDT Telemedicine Urology, [facility] [address] [place] [address] Chandler Pena MD [address] [address] [place] [address] 11/24/2024 1:40 PM EDT Office Visit Dermatology [address] [place] [address] Sheryl Pena PA-C [address] [place] [address] [place] [address] Health Maintenance Due Date Last Done Comments Zoster Vaccines (1 of 2) 1985 DXA Scan 04/02/2020 04/02/2017, 052 11/2012, 11/05/2007 Depression Screening 05/24/2020 05/24/2019 Diabetic Foot Exam 11/08/2020 11/09/2019, 0 09/01/2018, 08/28/2017, Additional history exists HbA1c 08/13/2023 02/11/2023, 10/23, 01/11/2022, Additional history exists DTaP,Tdap,and Td Vaccines (2 - Td or Tdap) 11/16/2023 11/15/2013, 03/29/2008, 03/29/2008 Diabetic Eye Exam 12/22/2023 12/21/2022, , 03/10/2021, Additional history exists Albumin/Creatinine Ratio 02/08/2024 023, 01/18/2022, 12/23/2017, Additional history exists CKD PHOS USE SMARTSET 00803 02/08/202401/23, 08/07/2021, 11/09/2019, Additional history exists TSH 03/25/2024 03/25/2023, 0710/2022, 10/28/2022, Additional history exists Influenza Vaccine (FLU shot) (Season Ended) 2024 06/20/2022, 06/20/2022, 06/29/2021, Additional history exists CKD HGB USE SMARTSET 07336 05/26/202405/26, 05/26/2023, 04/07/2023, Additional history exists Pneumococcal [...] Documents on File Type Date Recorded Patient Dial Refinisher Expl anation Advance Directives and Living Will 08/10/2021 ADVANCE DIRECTIVE / LIVING WILL LIVING WILL Healthcare Agents on File Name Relationship Healthcare Agent [facility] Communication Josselyn Judd Adult Child Health Care Power of Attor nathalie Care Teams Packing Machine Operator Relationship Specialty Start Date End Date Verónica Benavides MD [address] [place] [address] [place] [phone] PCP - General Family Medicine 09/16/14 documented as of this encounter
--- OUTSIDE RECORDS SUMMARY | 2023-12-10 00:32 | External Medical Summary | Summary of Care ---
Author Name Unknown Organization [facility] Address [address] [place] [address] Phone [phone] Care Team Providers Care Bottom Sander Name Role Phone Verónica Benavides MD Primary Care Provide r Reason for Visit * Reason Onset Date Comments [facility]: Acute 11/28/2023 Encounter Details Date Type Department Care Team (Late st Contact Info) Description 11/28/2023 Telephone [facility], [facility] [address] [facility] [place] [address] Region, Nurse [address] [place] [address] [facility]: [...] in the morning. 0 08/08/2021 Active Nystatin [id number] UNIT/GM External Powder (Nystop)Indications: Lydia rash of [...] XL)Indications:Non-i schemic cardiomyopathy (HCC),Coronary artery disease involving [place] coronary artery of [place] heart without angina pectoris,HTN, goal below 140/90 [...] disease, without long-term current use of insulin ([facility]),Type 2 diabetes mellitus with hemoglobin A1c goal of less than 8.0% ([facility]) TEST UP TO FOUR TIMES DAILY 400 [...] Tablet 3 07/08/2023 Active OneTouch Delica Plus [id number] :Type 2 diabetes mellitus with hemoglobin A1c goal of less than 8.0% ([facility]) Test up to two times daily or as directed by [facility] pharmacist 200 Each 3 07/11/2023 Active [...] or more. 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 Triage Call: Reviewed last C&S - [...] Continue synthroid Coronary artery disease invo lving [place] coronary artery of [place] heart without angina pectoris 07/03/2012 Overview: 60% [...] mRNA, LNP-s, No Pre serve, 2-Dose Series ([employer]) 08/29/2021,10/23/2020,10/02/2020 COVID-19, MRNA-LNP, 23-24, P F, 30 MCG/0.3 mL, 12 YRS AND ABOVE, IM ([facility]) 08/04/2023 Covid-19, Mrna, Lnp-s, Pf, B ivalent, 30 Mcg, IM, 12 yrs and above ([employer]) 08/02/2022 Influenza, Whole Virus 08/07/2000 Pneumococcal Conjugate [...] encounter Miscellaneous Notes * Telephone Encounter - Nigel Cosme MD - 11/28/2023 11:32 AM EDT Agree with recommendations as written in note. E * Telephone Encounter - Sondra Sandra RN - 11/28/2023 11:07 AM EDT [facility] landscape technician Acute Call Date: 11/28/2023 Time: 11:07 AM Name: Regla Castano : 1935 Caller: Daughter Josselyn Relationship to Chief Complaint Patient presents with [facility]: Acute HPI: Regla Castano is a 88 year old female whose daughter and CG Josselyn is calling [facility] Intake to report Pt had extra Easter foods and has had a weight gain since Friday. Mon- 239 Tues 238.4 Thurs 237.0 Fri 237.2 Pt baseline weight is reported at 233- 234 lbs. She has some SOB and edema in the legs. Daughter is calling to inform [facility] that she is instituting DTP which is [...] Yes, weight gain of 4 lbs since [facility] Patient prescribed oxygen? No Patient has been [...] COPD exacerbation symptoms: No Reinforcement Education: Call [facility] if sxs worsen or no change in weight; Weekend PC scheduled [facility] will call if there are any further recommednations. Follow low sodium <2,000 mg diet. Fluid limit of 64 oz/daily Treatment/Plan: (need to report) Level of call: Non-Acute Recommended treatment plan: Clinical advice given over the phone Routing to Care team and [facility] for any further recommendations. May need labs next week. No labs since 06/16. L PC scheduled. Sondra Sandra RN [facility] Intake Triage Coordinator [phone] documented in this encounter Plan of Treatment Upcoming Encounters Date Type Department Care Team (Late st Contact Info) Description 11/30/2023 9:30 AM EDT Scheduled Telephone [facility], [facility] 132 [facility] [place] [address] [facility], Nurse [facility] 132 [facility] [place] [address] 12/17/2023 10:00 AM EDT Office Visit Ophthalmology, [facility] [address] [facility] [place] [address] Romel Mcclelland, DO [address] [place] [address] 12/23/2023 10:00 AM EDT [facility], [facility] [address] [facility] [place] [address] Destiny Schultz RN [address] [facility] [place] [address] 03/30/2024 3:40 PM EDT Office Visit Family Medicine [address] [place] [phone] Verónica Benavides MD [address] [place] [address] [place] [address] 04/21/2024 10:30 AM EDT Telemedicine Urology, [facility] [address] [facility] [place] [address] Chandler Pena MD [address] [place] [address] [place] [address] 11/24/2024 1:40 PM EDT Office Visit Dermatology [address] [place] [address] Sheryl Pena PA-C [address] [place] [address] [place] [address] Health Maintenance Due Date Last Done Comments [...] Additional history exists CKD PHOS USE SMARTSET 33780 02/08/202401/23, 08/07/2021, 11/09/2019, Additional history exists TSH 03/25/2024 03/25/2023, 07/0 10/2022, 10/28/2022, Additional history exists Influenza Vaccine (FLU shot) (Season Ended) 2024 06/20/2022, 06/20/2022, 06/29/2021, Additional history exists CKD HGB USE SMARTSET 57836 05/26/202405/26, 05/26/2023, 04/07/2023, Additional history exists Pneumococcal [...] Documents on File Type Date Recorded Patient Orthopedic Nurse Practitioner Expl anation Advance Directives and Living Will 08/10/2021 ADVANCE DIRECTIVE / LIVING WILL LIVING WILL Healthcare Agents on File Name Relationship Healthcare Agent Relationshi p Communication Josselyn Judd Adult Child Health Care Power of Attor nathalie Care Teams Bottom Sander Relationship Specialty Start Date End Date Verónica Benavides MD [address] [place] [address] [place] [address] PCP - General Family Medicine 09/16/14 documented as of this encounter
--- OUTSIDE RECORDS SUMMARY | 2023-12-10 00:32 | External Medical Summary | Summary of Care ---
Author Name Unknown Organization [facility] Address [address] [place] [address] Phone [phone] Care Team Providers Care Human Relations Teacher Name Role Phone Verónica Benavides MD Primary Care Provide r Reason for Visit * Reason Onset Date Comments [facility]: Acute 11/28/2023 Encounter Details Date Type Department Care Team (Late st Contact Info) Description 11/28/2023 Telephone [facility], [facility] [address] [facility] [place] [address] Region, Nurse [address] [place] [address] [facility] [...] in the morning. 0 08/08/2021 Active Nystatin [id number] UNIT/GM External Powder (Nystop)Indications: Lydia rash of [...] XL)Indications:Non-i schemic cardiomyopathy (HCC),Coronary artery disease involving lower [place] coronary artery of [place] heart without angina pectoris,HTN, goal below 140/90 [...] disease, without long-term current use of insulin ([facility]),Type 2 diabetes mellitus with hemoglobin A1c goal of less than 8.0% ([facility]) TEST UP TO FOUR TIMES [...] Tablet 3 07/08/2023 Active OneTouch Delica Plus [id number] :Type 2 diabetes mellitus with hemoglobin A1c goal of less than 8.0% ([facility]) Test up to two times daily or as directed by [facility] pharmacist 200 Each 3 07/11/2023 Active [...] 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 Last Assessment & Plan: [facility] Triage Call: Reviewed last C&S [...] Continue synthroid Coronary artery disease invo lving lower [place] coronary artery of [place] heart without angina pectoris 07/03/2012 Overview: 60% [...] mRNA, LNP-s, No Pre serve, 2-Dose Series ([employer]) 08/29/2021,10/23/2020,10/02/2020 COVID-19, MRNA-LNP, 23-24, P F, 30 MCG/0.3 mL, 12 YRS AND ABOVE, IM ([facility] 08/04/2023 Covid-19, Mrna, Lnp-s, Pf, B ivalent, 30 Mcg, IM, 12 yrs and above ([employer]) 08/02/2022 Influenza, Whole Virus 08/07/2000 Pneumococcal Conjugate [...] Sandra RN - 11/28/2023 11:07 AM EDT [facility] Acute Call Date: 11/28/2023 Time: 11:07 AM Name: Regla Castano : 1935 Caller: Daughter Josselyn Relationship to Chief Complaint Patient presents with [facility]: Acute HPI: Regla Castano is a 88 year old female whose daughter and CG Josselyn is calling [facility] Intake to report Pt had extra Easter foods and has had a weight gain since Friday. Mon- 239 Tues 238.4 Thurs 237.0 Fri 237.2 Pt baseline weight is reported at 233- 234 lbs. She has some SOB and edema in the legs. Daughter is calling to inform [facility] that she is instituting DTP which is [...] Yes, weight gain of 4 lbs since [facility] Patient prescribed oxygen? No Patient has been [...] COPD exacerbation symptoms: No Reinforcement Education: Call [facility] if sxs worsen or no change in weight; Weekend PC scheduled [facility] will call if there are any further recommednations. Follow low sodium <2,000 mg diet. Fluid limit of 64 oz/daily Treatment/Plan: (need to report) Level of call: Non-Acute Recommended treatment plan: Clinical advice given over the phone Routing to Care team and [facility] for any further recommendations. May need labs next week. No labs since 06/16. L PC scheduled. Sondra Sandra RN [facility] Intake Triage Coordinator [phone] documented in this encounter Plan of Treatment Upcoming Encounters Date Type Department Care Team (Late st Contact Info) Description 11/30/2023 9:30 AM EDT Scheduled Telephone [facility], [facility] [address] [facility] [place] [address] [facility], Nurse [facility] 132 [facility] [place] [address] 12/17/2023 10:00 AM EDT Office Visit Ophthalmology, [facility] [address] [facility] [place] [address] Romel Mcclelland, DO [address] [place] [address] 12/23/2023 10:00 AM EDT [facility], [facility] [address] [facility] [place] [address] Destiny Schultz RN [address] [place] [address] 03/30/2024 3:40 PM EDT Office Visit Family Medicine [address] [place] [phone] Verónica Benavides MD [address] [place] [address] [place] [address] 04/21/2024 10:30 AM EDT Telemedicine Urology, [facility] [address] [facility] [place] [address] Chandler Pena MD [address] [place] [address] [place] [address] 11/24/2024 1:40 PM EDT Office Visit Dermatology [address] [place] [address] Sheryl Pena PA-C [address] [place] [address] [place] [address] Health Maintenance Due Date Last Done Comments [...] Additional history exists CKD PHOS USE SMARTSET 17444 02/08/202401/23, 08/07/2021, 11/09/2019, Additional history exists TSH 03/25/2024 03/25/2023, 07/0 10/2022, 10/28/2022, Additional history exists Influenza Vaccine (FLU shot) (Season Ended) 2024 06/20/2022, 06/20/2022, 06/29/2021, Additional history exists CKD HGB USE SMARTSET 18189 05/26/202405/26, 05/26/2023, 04/07/2023, Additional history exists Pneumococcal [...] Documents on File Type Date Recorded Patient It Consulting Director Expl anation Advance Directives and Living Will 08/10/2021 ADVANCE DIRECTIVE / LIVING WILL LIVING WILL Healthcare Agents on File Name Relationship Healthcare Agent Relationshi p Communication Josselyn Judd Adult Child Health Care Power of Attor nathalie Care Teams Human Relations Teacher Relationship Specialty Start Date End Date Verónica Benavides MD [address] [place] [address] [place] [address] PCP - General Family Medicine 09/16/14 documented as of this encounter
--- OUTSIDE RECORDS SUMMARY | 2023-12-10 00:32 | External Medical Summary | Summary of Care ---
Author Name Unknown Organization [facility] Address [address] [place] [address] Phone [phone] Care Team Providers Care Industrial Furnace Fabricator Name Role Phone Verónica Benavides MD Primary Care Provide r Reason for Visit * Reason Onset Date Comments Medication Refill 11/26/2023 Re: Torsemide 20MG Tablet Encounter Details Date Type Department Care Team (Late st Contact Info) Description 11/26/2023 Refill [facility], [facility] [address] [facility] [place] [phone] Karthikeyan Chaudhari DO [address] [facility] [place] [address] Heart failure, systolic, due to idiopathic cardiomyopathy (HCC) Allergies Active Allergy Reactions Criticality Noted Date [...] in the morning. 0 08/08/2021 Active Nystatin 255889 UNIT/GM External Powder (Nystop)Indications :Lydia rash of [...] XL)Indications:Non- ischemic cardiomyopathy (HCC),Coronary artery disease involving [place] coronary artery of [place] heart without angina pectoris,HTN, goal below 140/90 [...] disease, without long-term current use of insulin ([facility]),Type 2 diabetes mellitus with hemoglobin A1c goal of less than 8.0% ([facility]) TEST UP TO FOUR TIMES [...] Tablet 3 07/08/2023 Active OneTouch Delica Plus [id number] s:Type 2 diabetes mellitus with hemoglobin A1c goal of less than 8.0% ([facility]) Test up to two times daily or as directed by [facility] pharmacist 200 Each 3 07/11/2023 Active [...] or more. 180 Tablet 3 11/28/2023 Active Torsemide 20 MG Oral Tablet (Demadex)Indication s:Heart failure, systolic, due to idiopathic cardiomyopathy (HCC) Take 60 mg by mouth in the morning, 40 mg by mouth in the afternoon. Additional 20 mg in the afternoon ONLY if directed by health care provider for weight gain of 3 lbs or more. 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 Last Assessment & Plan: [facility] Triage Call: Reviewed last C&S [...] Continue synthroid Coronary artery disease invo lving [place] coronary artery of [place] heart without angina pectoris 07/03/2012 Overview: 60% [...] mRNA, LNP-s, No Pre serve, 2-Dose Series ([employer]) 08/29/2021,10/23/2020,10/02/2020 COVID-19, MRNA-LNP, 23-24, P F, 30 MCG/0.3 mL, 12 YRS AND ABOVE, IM ([facility] 08/04/2023 Covid-19, Mrna, Lnp-s, Pf, B ivalent, 30 Mcg, IM, 12 yrs and above ([employer]) 08/02/2022 Pneumococcal Conjugate Vacc, 13 Valent (Prevnar) [...] Encounter - Karthikeyan Chaudhari DO - 11/28/2023 10:27 AM EDTSigned Prescriptions: Disp Refills Torsemide 20 MG Oral Tablet (Demadex) 180 Ta*3 Sig: Take 60 mg by mouth in the morning, 40 mg by mouth in the afternoon. Additional 20 mg in the afternoon ONLY if directed by health care provider for weight gain of 3 lbs or more. Authorizing Provider: KARTHIKEYAN CHAUDHARI * Telephone Encounter - Tonie Painting OSA - 11/26/2023 9:30 AM EDT Please authorize with refills, as appropriate. Thank you, BETTY Lyon documented in this encounter Plan of Treatment Upcoming Encounters Date Type Department Care Team (Late st Contact Info) Description 12/17/2023 10:00 AM EDT Office Visit Ophthalmology, [facility] [address] [facility] [place] [address] Romel Mcclelland, DO 16 [place] [address] 12/23/2023 10:00 AM EDT [facility], [facility] [address] [facility] [place] [address] Destiny Schultz RN 132 [facility] [place] [address] 03/30/2024 3:40 PM EDT Office Visit Family Medicine [address] [place] [phone] Verónica Benavides MD [address] [place] [address] [place] [address] 04/21/2024 10:30 AM EDT Telemedicine Urology, [facility] 132 [facility] [place] [address] Chandler Pena MD [address] [place] [address] [place] [address] 11/24/2024 1:40 PM EDT Office Visit Dermatology [address] [place] [address] Sheryl Pena PA-C [address] [place] [address] [place] [address] Health Maintenance Due Date Last Done Comments [...] Additional history exists CKD PHOS USE SMARTSET 62492 02/08/202401/23, 08/07/2021, 11/09/2019, Additional history exists TSH 03/25/2024 03/25/2023, 07/0 10/2022, 10/28/2022, Additional history exists Influenza Vaccine (FLU shot) (Season Ended) 2024 06/20/2022, 06/20/2022, 06/29/2021, Additional history exists CKD HGB USE SMARTSET 68251 05/26/202405/26, 05/26/2023, 04/07/2023, Additional history exists Pneumococcal [...] as of this encounter Visit Diagnoses Diagnosis Heart failure, systolic, due to idiopathic cardiomyopathy (HCC) Unspecified systolic heart failure documented in this encounter Advance Directives Documents on File Type Date Recorded Patient Adoption Worker Expl anation Advance Directives and Living Will 08/10/2021 ADVANCE DIRECTIVE / LIVING WILL LIVING WILL Healthcare Agents on File Name Relationship Healthcare Agent [facility] p Communication Josselyn Judd Adult Child Health Care Power of Attor nathalie Care Teams Industrial Furnace Fabricator Relationship Specialty Start Date End Date Verónica Benavides MD [address] [place] [address] [place] [address] PCP - General Family Medicine 09/16/14 documented as of this encounter
--- OUTSIDE RECORDS SUMMARY | 2023-12-10 00:33 | External Medical Summary | Summary of Care ---
Author Name Unknown Organization [facility] Address [address] [place] [address] Phone [phone] Care Team Providers Care Equipment Maintenance Supervisor Name Role Phone Verónica Benavides MD Primary Care Provide r Reason for Visit * Reason Comments [facility]: Maintenance Encounter Details Date Type Department Care Team ([facility] st Contact Info) Description 11/11/2023 2:30 PM EDT Home Visit [facility], [facility] [address] [facility] [place] [address] Destiny Schultz, POPPY [facility] [address] Allergies Active Allergy Reactions Criticality Noted Date Comments Adhesive Tape Medium 01/30/2022 Ibuprofen Hives 01/13/2012 Aspirin Hives,Rash 09/15/2000 Sulfamethoxazole-Trimeth oprim Nausea/vomiting,Othe r (Please comment) 10/27/2020 Dizziness Ciprofloxacin Hcl 06/16/2019 Hoarse, dizzy,disoriented Morphine 09/21/2021 Blacked out Penicillins Hives,Rash 09/15/2000 Prednisone 12/30/2017 Weakness/memory changes/blurred vision documented as of this encounter (statuses as of 11/11/2023) Medications Medication Sig Dispensed Refills Start Date [...] in the morning. 0 08/08/2021 Active Nystatin 615187 UNIT/GM External Powder (Nystop)Indications: Lydia rash of [...] XL)Indications:Non-i schemic cardiomyopathy (HCC),Coronary artery disease involving [place] coronary artery of [place] heart without angina pectoris,HTN, goal below 140/90 [...] disease, without long-term current use of insulin ([facility]),Type 2 diabetes mellitus with hemoglobin A1c goal of less than 8.0% ([facility]) TEST UP TO FOUR TIMES DAILY 400 Strip 1 05/30/2023 Active Potassium Chloride Laura ER 20 MEQ Oral Tablet Extended Release Take 1 Tablet by mouth 2 times a day with morning and evening meals. 180 Tablet 1 05/30/2023 Active Colchicine 0.6 MG Oral [...] Tablet 3 07/08/2023 Active OneTouch Delica Plus [id number] :Type 2 diabetes mellitus with hemoglobin A1c goal of less than 8.0% ([facility]) Test up to two times daily or as directed by [facility] pharmacist 200 Each 3 07/11/2023 Active Torsemide 20 MG Oral Tablet (Demadex)Indications :Heart failure, systolic, due to idiopathic cardiomyopathy ([facility]) Take 60 mg by mouth in the [...] Additional Information Patient not taking.Reported on 10/22/2023 documented as of this encounter (statuses as of 11/11/2023) Active Problems Problem Noted Date Diagnosed Date [...] 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 Last Assessment & Plan: [facility] Triage Call: Reviewed last C&S [...] Continue synthroid Coronary artery disease invo lving [place] coronary artery of [place] heart without angina pectoris 07/03/2012 Overview: 60% [...] as of this encounter (statuses as of 11/11/2023) Resolved Problems Problem Noted Date Diagnosed Date [...] as of this encounter (statuses as of 11/11/2023) Immunizations Name Administration Dates Next Due COVID-19 mRNA, LNP-s, No Pre serve, 2-Dose Series ([employer]) 08/29/2021,10/23/2020,10/02/2020 COVID-19, MRNA-LNP, 23-24, P F, 30 MCG/0.3 mL, 12 YRS AND ABOVE, IM ([employer] [facility]) 08/04/2023 Covid-19, Mrna, Lnp-s, Pf, B ivalent, 30 Mcg, IM, 12 yrs and above ([employer]) 08/02/2022 Pneumococcal Conjugate Vacc, 13 Valent (Prevnar) [...] on file documented as of this encounter Last Filed Vital Signs Vital Sign Reading Time Taken Comments Blood Pressure 122/64 11/11/2023 2:14 PM EDT Pulse 62 11/11/2023 2:14 PM EDT Temperature 35.7 C (96.3 F) 11/11/2023 2:14 PM ED T Respiratory Rate 18 11/11/2023 2:14 PM EDT Oxygen Saturation 91% 11/11/2023 2:14 PM EDT Inhaled Oxygen Concentration - - Weight 108 kg (238 lb) 11/11/2023 2:14 PM EDT Height - - Body Mass Index 44.97 02/26/2023 10:32 AM EDT documented in this encounter Progress Notes * Destiny Schultz, POPPY - 11/11/2023 1:53 PM EDT [facility] [employer] Safety Engineer Visit Date: 11/11/2023 Time: 1:53 PM Name: Regla Castano : 1935 Current Concerns: Patient seen for follow up- h/o falls/ UTI, CHF, CKD, DM2 Getting nails and toenails done on arrival. Daughter and caregiver present for visit. Reports patient is doing well. Daughter states weight has been creeping up but she hasn't had a real good bowel movement. Will admin Dulcolax tab tonight. Had BM last evening but still wasn't enough. Blood sugar 110 Weight 238 Patient offers no complaints VS wnl Lungs clear but diminished Sob with exertion Chronic BLE lymphedema Voiding without difficulty Appetite good Taking fluids well Denies pain Problems/Symptoms: Review of Systems Constitutional: Negative. HENT: Negative. Eyes: Negative. Respiratory: Positive for shortness of breath. Cardiovascular: Positive for leg swelling. Gastrointestinal: Negative. Endocrine: Negative. Genitourinary: Negative. Musculoskeletal: Positive for gait problem. Skin: Negative. Allergic/Immunologic: Negative. Hematological: Negative. Psychiatric/Behavioral: Negative. Physical Exam: BP 122/64 (BP Site: Right Arm, BP Position: Sitting, BP Cuff Size: Regular) | Pulse 62 | Temp 35.7 C (96.3 F) (Tympanic) | Resp 18 | Wt 108 kg (238 lb) | SpO2 91% | BMI 44.97 kg/m | BSA 2.16 m Pain 0 Physical Exam Constitutional: Appearance: Normal appearance. Cardiovascular: Rate and Rhythm: Normal rate and regular rhythm. Pulses: Normal pulses. Pulmonary: Effort: Pulmonary effort is normal. Breath sounds: Normal breath sounds. Abdominal: General: Bowel sounds are normal. Palpations: Abdomen is soft. Musculoskeletal: Right lower leg: Edema present. Left lower leg: Edema present. Skin: General: Skin is warm and dry. Capillary Refill: Capillary refill takes 2 to 3 seconds. Neurological: General: No focal deficit present. Mental Status: She is alert and oriented to person, place, and time. Psychiatric: Mood and Affect: Mood normal. Behavior: Behavior normal. [facility]-10 Completed this Visit: No. No falls since last visit Treatment/Plan: Compression stockings BLE Compression pumps daily alternating legs Continue medications as prescribed Keep all upcoming MD appointments Fall precautions- walker Low na diet Elevate ble- edema 4 bottles water daily Weights and blood sugars daily- keep log RN CM follow up in 6 weeks. Home Interventions Provided: Reinforced current Plan of Care, including self-management and medication regimen Patient Needs to Remember: Call [facility] with any medical concerns/ red flags Referrals Needed: N/a Follow Up: Is there cellular connectivity/connectivity in the home? Yes Does the patient have internet in the home? Yes Patient encouraged to call the intake phone number for all urgent but not emergent issues. Scheduled to follow up with patient in 6 weeks. Destiny Byers RN 11/11/2023 1:53 PM documented in this encounter Plan of Treatment Upcoming Encounters Date Type Department Care Team (Late st Contact Info) Description 12/03/2023 3:00 PM EDT Office Visit Dermatology [address] [place] [address] Sheryl Pena PA-C [address] [place] [address] [place] [address] 12/08/2023 1:00 PM EDT Office Visit Ophthalmology, [facility] [address] [facility] [place] [address] Romel Mcclelland, DO 16 [place] [address] 12/23/2023 10:00 AM EDT Home Visit [facility], [facility] [address] [facility] [place] [address] Destiny Schultz, POPPY 132 [facility] [place] [address] 01/06/2024 1:30 PM EDT Cardiac Studies Cardiology [address] [place] [address] Aleta [facility] 132 [facility] [place] [address] 03/30/2024 3:40 PM EDT Office Visit Family Medicine [address] [place] [phone] Verónica Benavides MD [address] [place] [address] [place] [address] 04/21/2024 10:30 AM EDT Telemedicine Urology, [facility] [address] [facility] [place] [address] Chandler Pena MD 27 [facility] [address] [place] [address] Health Maintenance Due Date Last Done Comments Zoster Vaccines (1 of 2) 1985 DXA Scan 04/02/2020 04/02/2017, 0511/2012, 11/05/2007 Depression Screening 05/24/2020 05/24/2019 Diabetic Foot Exam 11/08/2020 11/09/2019, 0 09/01/2018, 08/28/2017, Additional history exists Influenza Vaccine (FLU shot) (#1) 2023 06/20/2022, 06/20/2022, 06/29/2021, Additional history exists HbA1c 08/13/2023 02/11/2023, 10/23, 01/11/2022, Additional history exists DTaP,Tdap,and Td Vaccines (2 - Td or Tdap) 11/16/2023 11/15/2013, 03/29/2008, 03/29/2008 Diabetic Eye Exam 12/22/2023 12/21/2022, , 03/10/2021, Additional history exists Albumin/Creatinine Ratio 02/08/2024 023, 01/18/2022, 12/23/2017, Additional history exists CKD PHOS USE SMARTSET 91383 02/08/202401/23, 08/07/2021, 11/09/2019, Additional history exists TSH 03/25/2024 03/25/2023, 07/0 10/2022, 10/28/2022, Additional history exists CKD HGB USE SMARTSET 71826 05/26/202405/26, 05/26/2023, 04/07/2023, Additional history exists Pneumococcal [...] Documents on File Type Date Recorded Patient Medication Manager Expl anation Advance Directives and Living Will 08/10/2021 ADVANCE DIRECTIVE / LIVING WILL LIVING WILL Healthcare Agents on File Name Relationship Healthcare Agent [facility] Communication [facility] Adult Child Health Care Power of Attor nathalie Care Teams Equipment Maintenance Supervisor Relationship Specialty Start Date End Date Verónica Benavides MD [address] [place] [address] [place] [address] PCP - General Family Medicine 09/16/14 documented as of this encounter
--- OUTSIDE RECORDS SUMMARY | 2023-12-10 00:33 | External Medical Summary | Summary of Care ---
Author Name Unknown Organization [facility] Address [address] [place] [address] Phone [phone] Care Team Providers Care Load Test Mechanic Name Role Phone Verónica Benavides MD Primary Care Provide r Reason for Visit * Reason Onset Date Comments Advice 08/14/2023 Time sensitive-o xygen Encounter Details Date Type Department Care Team (Late st Contact Info) Description 08/14/2023 Telephone Family [address] [phone] Verónica Benavides MD [address] [place] [address] [place] [phone] Advice (Time sensitive-oxygen) Allergies Active Allergy Reactions Criticality Noted Date Comments Adhesive Tape Medium 01/30/2022 Ibuprofen Hives 01/13/2012 Aspirin Hives,Rash 09/15/2000 Sulfamethoxazole-Trimeth oprim Nausea/vomiting,Othe r (Please comment) 10/27/2020 Dizziness Ciprofloxacin Hcl 06/16/2019 Hoarse, dizzy,disoriented Morphine 09/21/2021 Blacked out Penicillins Hives,Rash 09/15/2000 Prednisone 12/30/2017 Weakness/memory changes/blurred vision documented as of this encounter (statuses as of 11/13/2023) Medications Medication Sig Dispensed Refills Start Date [...] in the morning. 0 08/08/2021 Active Nystatin 015540 UNIT/GM External Powder (Nystop)Indications: Lydia rash of [...] long-term current use of insulin ([facility]),Type 2 diabetes mellitus with hemoglobin A1c goal of less than 8.0% ([facility]) TEST UP TO FOUR TIMES [...] Tablet 3 07/08/2023 Active OneTouch Delica Plus [id number] :Type 2 diabetes mellitus with hemoglobin A1c goal of less than 8.0% ([facility]) Test up to two times daily or as directed by [facility] pharmacist 200 Each 3 07/11/2023 Active Torsemide 20 MG Oral Tablet (Demadex)Indications :Heart failure, systolic, due to idiopathic cardiomyopathy ([facility]) Take 60 mg by mouth [...] OTHER MEDS 90 Tablet 3 08/11/2023 Active documented as of this encounter (statuses as of 11/13/2023) Active Problems Problem Noted Date Diagnosed Date [...] Morbid obesity with BMI of 45.0-49.9, adult 110 12/2020 ESBL E. 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 Last Assessment & Plan: [facility] Triage Call: Reviewed last C&S - [...] as of this encounter (statuses as of 11/13/2023) Resolved Problems Problem Noted Date Diagnosed Date [...] as of this encounter (statuses as of 11/13/2023) Immunizations Name Administration Dates Next Due COVID-19 mRNA, LNP-s, No Pre serve, 2-Dose Series ([employer]) 08/29/2021,10/23/2020,10/02/2020 COVID-19, MRNA-LNP, 23-24, P F, 30 MCG/0.3 mL, 12 YRS AND ABOVE, IM ([facility]) 08/04/2023 Covid-19, Mrna, Lnp-s, Pf, B ivalent, 30 Mcg, IM, 12 yrs and above ([employer]) 08/02/2022 Pneumococcal Conjugate Vacc, 13 Valent (Prevnar) 09/11/2015 Pneumococcal Polysaccharide PPV23 (Pneumovax) 05/25/2008,06/23/2001 Season Influenza, Quad, PF, Adjuvanted, 65+ Yrs, IM ([employer]) 06/06/2020 Seasonal Influenza Virus Vac cine, Unspecified Formulation 06/04/2019,04/30/2018,06/05/2017,05/25,05/23/2017,08/12/2016,04/22/2014 ,05/17/2013,04/29/2012,06/21/2011,10/2009,05/31/2009,07/01/2008,,08/08/2006,06/21/2005,07/05/2003,06/2002,06/23/2001,08/07/2000 Seasonal Influenza, PF, 6 M & above, [...] encounter Miscellaneous Notes * Telephone Encounter - Mami Penny LPN - 08/14/2023 11:21 AM EST Daughter is calling back. Tomorrow Health is going to redo some paper work for her mothers oxygen. Then it will be covered. Wanted to thank us for all the help. * Telephone Encounter - Alona Mayer LPN - 08/14/2023 11:02 AM EST Spoke with pt daughter She is going to contact [employer] and insurance to see why claims are being rejected and not paid. She will contact us back, to let us know if we need to send anything to either of those places to get the claims paid for. * Telephone Encounter - Verna Campa OSA - 08/14/2023 9:22 AM EST Patient's daughter calling states Regla has been on oxygen for the past 6-8 weeks and it is helping.Patient received the oxygen from [facility] and she received a call from [employer] 08/13/23 stating that they would be coming to fern picker the equipment because her insurance was not paying the claims. [facility] was requesting to schedule a fern picker time. Patient is in the waiver program and does not understand why the insurance is not paying the claims. Please contact Josselyn at: [phone] documented in this encounter Plan of Treatment Upcoming Encounters Date Type Department Care Team (Late st Contact Info) Description 12/03/2023 3:00 PM EDT Office Visit Dermatology [address] [place] [address] Sheryl Pena PA-C [address] [place] [address] [place] [address] 12/08/2023 1:00 PM EDT Office Visit Ophthalmology, [facility] 132 [facility] [place] [address] Romel Mcclelland, DO 16 [place] [address] 12/23/2023 10:00 AM EDT [facility], [facility] 132 [facility] [place] [address] Destiny Schultz, POPPY 132 [facility] [place] [address] 01/06/2024 1:30 PM EDT Cardiac Studies Cardiology [address] [place] [address] [facility] 132 [facility] [place] [address] 03/30/2024 3:40 PM EDT Office Visit Family Medicine [address] [place] [phone] Verónica Benavides MD [address] [place] [address] [place] [address] 04/21/2024 10:30 AM EDT Telemedicine Urology, [facility] 132 [facility] [place] [address] Chandler Pena MD [address] [place] [address] [place] [address] Health Maintenance Due Date Last Done Comments [...] Additional history exists CKD PHOS USE SMARTSET 86593 02/08/202401/23, 08/07/2021, 11/09/2019, Additional history exists TSH 03/25/2024 03/25/2023, 07/0 10/2022, 10/28/2022, Additional history exists CKD HGB USE SMARTSET 75263 05/26/202405/26, 05/26/2023, 04/07/2023, Additional history exists Pneumococcal [...] Documents on File Type Date Recorded Patient Capacitor Tester Expl anation Advance Directives and Living Will 08/10/2021 ADVANCE DIRECTIVE / LIVING WILL LIVING WILL Healthcare Agents on File Name Relationship Healthcare Agent [facility] Communication Josselyn Judd Adult Child Health Care Power of Attor nathalie Care Teams Load Test Mechanic Relationship Specialty Start Date End Date Verónica Benavides MD [address] [place] [address] [place] [phone] PCP - General Family Medicine 09/16/14 documented as of this encounter
--- OUTSIDE RECORDS SUMMARY | 2023-12-10 00:33 | External Medical Summary | Summary of Care ---
Author Name Unknown Organization [facility] Address [address] [place] [address] Phone [phone] Care Team Providers Care Volleyball Commentator Name Role Phone Verónica Benavides MD Primary Care Provide r Reason for Visit * Reason Onset Date Comments Advice 11/20/2023 Encounter Details Date Type Department Care Team (Late st Contact Info) Description 11/20/2023 Telephone Ophthalmology, [facility] [address] [place] [address] Services, Scheduling [address] [place] [address] Advice Allergies Active Allergy Reactions Criticality Noted Date Comments Adhesive Tape Medium 01/30/2022 Ibuprofen Hives 01/13/2012 Aspirin Hives,Rash 09/15/2000 Sulfamethoxazole-Trimeth oprim Nausea/vomiting,Othe r (Please comment) 10/27/2020 Dizziness Ciprofloxacin Hcl 06/16/2019 Hoarse, dizzy,disoriented Morphine 09/21/2021 Blacked out Penicillins Hives,Rash 09/15/2000 Prednisone 12/30/2017 Weakness/memory changes/blurred vision documented as of this encounter (statuses as of 11/21/2023) Medications Medication Sig Dispensed Refills Start Date [...] in the morning. 0 08/08/2021 Active Nystatin 667891 UNIT/GM External Powder (Nystop)Indications: Lydia rash of [...] XL)Indications:Non-i schemic cardiomyopathy (HCC),Coronary artery disease involving [place] coronary artery of [place] heart without angina pectoris,HTN, goal below 140/90 [...] Tablet 3 07/08/2023 Active OneTouch Delica Plus [id number] :Type 2 diabetes mellitus with hemoglobin A1c goal of less than 8.0% ([facility]) Test up to two times daily or as directed by [facility] pharmacist 200 Each 3 07/11/2023 Active Torsemide 20 MG Oral Tablet (Demadex)Indications :Heart failure, systolic, due to idiopathic cardiomyopathy ([facility]) Take 60 mg by mouth in the [...] as of this encounter (statuses as of 11/21/2023) Active Problems Problem Noted Date Diagnosed Date [...] 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 Last Assessment & Plan: [facility] Triage Call: Reviewed last C&S - [...] Continue synthroid Coronary artery disease invo lving [place] coronary artery of [place] heart without angina pectoris 07/03/2012 Overview: 60% [...] as of this encounter (statuses as of 11/21/2023) Resolved Problems Problem Noted Date Diagnosed Date [...] as of this encounter (statuses as of 11/21/2023) Immunizations Name Administration Dates Next Due COVID-19 mRNA, LNP-s, No Pre serve, 2-Dose Series ([employer]) 08/29/2021,10/23/2020,10/02/2020 COVID-19, MRNA-LNP, 23-24, P F, 30 MCG/0.3 mL, 12 YRS AND ABOVE, IM ([employer]-Comirnaty) 08/04/2023 Covid-19, Mrna, Lnp-s, Pf, B ivalent, [...] encounter Miscellaneous Notes * Telephone Encounter - Romel Mcclelland DO - 11/21/2023 8:29 AM EDT Call me to daughter. All questions answered. Patient with severe aortic stenosis and can not tolerate general anesthesia. Discussed local anesthesia with epinephrine we will clear with cardiology. Discussed with her insurance we can evaluate multiple visits and set her up for the definitive photography and repair on the 16 of December at 10:00 a.m. daughter and patient are agreeable. * Telephone Encounter - Elbert Toussaint OSA - 11/20/2023 3:48 PM EDT Patient's daughter calling in requesting a return call regarding whether the patient would have theprocedure done in the office for her eyelid turning in. She stated that she specifically wants to know if they would use a local anesthetic. Please advise. documented in this encounter Plan of Treatment Upcoming Encounters Date Type Department Care Team (Late st Contact Info) Description 12/08/2023 1:00 PM EDT Office Visit Ophthalmology, [facility] [address] [facility] [place] [address] Romel Mcclelland DO [address] [place], [place] [address] [address] 12/23/2023 10:00 AM EDT Home Visit [facility] at [facility] [address] [facility] [place] [address] Destiny Schultz RN 132 [facility] [place] [address] 01/06/2024 1:30 PM EDT Cardiac Studies Cardiology [address] [place] [address] [facility] [address] [facility] [place] [address] 03/30/2024 3:40 PM EDT Office Visit Family Medicine [address] [place] [phone] Verónica Benavides MD [address] [place] [address] [place] [address] 04/21/2024 10:30 AM EDT Telemedicine Urology, [facility] 132 [facility] [place] [address] Chandler Pena MD 27 [facility] [address] [place] [address] 11/24/2024 1:40 PM EDT Office Visit Dermatology [address] [place] [address] Sheryl Pena PA-C [address] [place] [address] [place] [address] Health Maintenance Due Date Last Done Comments [...] Additional history exists CKD PHOS USE SMARTSET 89067 02/08/202401/23, 08/07/2021, 11/09/2019, Additional history exists TSH 03/25/2024 03/25/2023, 10/2022, 10/28/2022, Additional history exists CKD HGB USE SMARTSET 22023 05/26/202405/26, 05/26/2023, 04/07/2023, Additional history exists Pneumococcal [...] Documents on File Type Date Recorded Patient Analyst Competitive Intelligence Expl 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 Communication Josselyn Judd Adult Child Health Care Power of Attor nathalie Care Teams Volleyball Commentator Relationship Specialty Start Date End Date Verónica Benavides MD [address] [place] [address] [place] [phone] PCP - General Family Medicine 09/16/14 documented as of this encounter
--- OUTSIDE RECORDS SUMMARY | 2023-12-10 00:33 | External Medical Summary | Summary of Care ---
Author Name Unknown Organization [facility] Address [address] [place] [address] Phone [phone] Care Team Providers Care Straightening Machine Operator Name Role Phone Verónica Jiang MD Primary Care Provide r Reason for Visit * Reason Comments eRx-Medication Refill Encounter Details Date Type Department Care Team (Late st Contact Info) Description 11/20/2023 Refill Family Medicine [address] [phone] Verónica Jiang MD [address] [place] [address] Allergies Active Allergy Reactions Criticality Noted Date [...] PO TABS one pill each day 0 5 Active Acetaminophen (APAP) 325 MG Tablet Take 1 Tablet by mouth every 6 hours as needed. 0 Active OneTouch Verio w/Device Kit Use up to 4 times a day E11.9 1 Kit 0 1 Active Cyanocobalamin 1000 MCG Oral Tablet (Cyanocobalamin) Take 1 Tablet by mouth in the morning. 0 1 Active Nystatin 309971 UNIT/GM External Powder (Nystop)Indications :Lydia rash of groin Apply topically to affected area 2 times a day . 60 g 11 2 Active Additional Information Patient not taking.Reported on 10/22/2023 Probiotic Acidophilus BioBeads Oral Capsule Take 1 Capsule by mouth every evening. Just with antibiotics 0 Active Meclizine HCl 25 MG Oral Tablet (Antivert)Indicatio ns:Vertigo Take 1 tablet by mouth 3 times a day as needed for dizziness 30 Tablet 5 3 Active D-Mannose 500 MG Oral Capsule Take by mouth 2 times a day. 2 caps two times daily 0 Active Vitamin D-3 25 MCG (1000 UT) Oral Capsule Take 1 Capsule by mouth in the morning. 0 Active Docusate Sodium 50 MG/5ML Oral Liquid (Colace) Place 10 gtts to each ear for 30 min then irrigate. 120 mL 3 3 Active Additional Information Patient not taking.Reported on 10/22/2023 Bisacodyl 5 MG Oral Tablet Delayed Release Take 2 Tablets by mouth daily as needed for Constipation. Do not use for more than one week. Do not cut, crush or chew 40 Tablet 1 3 Active Metoprolol Succinate ER 25 MG Oral Tablet Extended Release 24 Hour (toPROL XL)Indications:Non- ischemic cardiomyopathy (HCC),Coronary artery disease involving [place] coronary artery of [place] heart without angina pectoris,HTN, goal below 140/90 Take 1 Tablet by mouth every evening. 90 Tablet 11 3 Active Spironolactone 25 MG Oral Tablet (Aldactone)Indicati ons:Non-ischemic cardiomyopathy (HCC) Take 0.5 Tablets by mouth in the morning. 45 Tablet 3 3 Active metOLazone 2.5 MG Oral Tablet (Zaroxolyn) Take one tablet only when directed by clinician. 5 Tablet 0 3 Active Benzonatate 100 MG Oral Capsule Take 1 Capsule by mouth 3 times a day as needed for Cough. 30 Capsule 1 3 Active Ondansetron HCl 4 MG Oral Tablet Take 1 Tablet by mouth every 6 hours as needed for Nausea. 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 3 Packet 0 3 Active Additional Information Patient not taking.Reported on 10/22/2023 Promethazine-DM 6.25-15 MG/5ML Oral Syrup Take 5 mL by mouth 4 times a day as needed for Cough. 120 mL 1 3 Active Myrbetriq 25 MG Oral Tablet Extended Release 24 Hour (Mirabegron ER) Take 1 Tablet by mouth in the morning. 90 Tablet 3 3 Active OneTouch Delica Plus [id number] s:Type 2 diabetes mellitus with hemoglobin A1c goal of less than 8.0% ([facility]) Test up to two times daily or as directed by [facility] pharmacist 200 Each 3 3 Active Torsemide 20 MG Oral Tablet (Demadex)Indication s:Heart failure, systolic, due to idiopathic cardiomyopathy ([facility]) Take 60 mg by mouth in the morning, 40 mg by mouth in the afternoon. Additional 20 mg in the afternoon ONLY if directed by health care provider for weight gain of 3 lbs or more. 180 Tablet 3 3 Active Estrogens Conjugated 0.625 MG/GM Vaginal Cream (Premarin) Administer 0.5 g into the vagina every night at bedtime. Pea-sized amount around vulvar area nightly 30 g 5 3 Active Omeprazole 20 MG Oral Capsule Delayed Release (PriLOSEC) TAKE ONE CAPSULE BY MOUTH EVERY DAY, ONE hour BEFORE THE first meal of THE DAY 90 Capsule 1 3 Active Levothyroxine Sodium 88 MCG Oral Tablet (Levoxyl)Indication s:Hypothyroidism, unspecified type TAKE ONE TABLET BY MOUTH EVERY MORNING 30 MINS PRIOR TO FIRST MEAL OF THE DAY OR OTHER MEDS 90 Tablet 3 3 Active Nitrofurantoin Monohyd Macro 100 MG Oral Capsule (Macrobid) Take 1 Capsule by mouth at bedtime. With food. 90 Capsule 3 4 Active Trulicity 0.75 MG/0.5ML Subcutaneous Solution Pen-injector (Dulaglutide) Inject 0.75 mg under the skin once a week. 2 mL 3 4 Active Clotrimazole 1 % External Cream (Lotrimin)Indicatio ns:Candidal intertrigo APPLY TO THE AFFECTED AREA(S) TWICE DAILY FOR FOURTEEN DAYS 60 g 2 4 Active Additional Information Patient not taking.Reported on 10/22/2023 Potassium Chloride Laura ER 20 MEQ Oral Tablet Extended Release Take 1 Tablet by mouth 2 times a day with morning and evening meals. 180 Tablet 1 4 Active Potassium Chloride Laura ER 20 MEQ Oral Tablet Extended Release Take 1 Tablet by mouth 2 times a day with morning and evening meals. 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 Last Assessment & Plan: [facility] Triage Call: Reviewed last C&S [...] Continue synthroid Coronary artery disease invo lving [place] coronary artery of [place] heart without angina pectoris 07/03/2012 Overview: 60% [...] mRNA, LNP-s, No Pre serve, 2-Dose Series ([employer]) 08/29/2021,10/23/2020,10/02/2020 COVID-19, MRNA-LNP, 23-24, P F, 30 MCG/0.3 mL, 12 YRS AND ABOVE, IM ([employer]Comirnat[employer]In[employer]) 08/04/2023 Covid-19, Mrna, Lnp-s, Pf, B ivalent, [...] encounter Miscellaneous Notes * Telephone Encounter - Antonio Gimenez RPh - 11/21/2023 7:35 AM EDTSigned Prescriptions: Disp Refills Potassium Chloride Laura ER 20 MEQ Oral Tab*180 Ta*1 Sig: Take 1 Tablet by mouth 2 times a day with morning and evening meals.Authorizing Provider: VERÓNICA JIANG User: ANTONIO GIMENEZ documented in this encounter Plan of Treatment Upcoming Encounters Date Type Department Care Team (Late st Contact Info) Description 12/08/2023 1:00 PM EDT Office Visit Ophthalmology, [facility] 132 [facility] [place] [address] Romel Mcclelland, DO [address] [place] [address] [place] [address] 12/23/2023 10:00 AM EDT Home Visit [place] at [facility] 132 [facility] [place] [address] Destiny Schultz, RN 132 [facility] [place] [address] 01/06/2024 1:30 PM EDT Cardiac Studies Cardiology [address] [place] [address] Aleta Abel [facility] 132 [facility] [place] [address] 03/30/2024 3:40 PM EDT Office Visit Family Medicine [address] [place] [phone] Verónica Jiang MD [address] [place] [address] [place] [address] 04/21/2024 10:30 AM EDT Telemedicine Urology, [facility] 132 [facility] [place] [address] Chandler Pena MD [address] [place] [address] [place] [address] 11/24/2024 1:40 PM EDT Office Visit Dermatology [address] [place] [address] Sheryl Pena PA-C [address] [place] [address] [place] [address] Health Maintenance Due Date Last Done Comments [...] Additional history exists CKD PHOS USE SMARTSET 88569 02/08/202401/23, 08/07/2021, 11/09/2019, Additional history exists TSH 03/25/2024 03/25/2023, 07/0 10/2022, 10/28/2022, Additional history exists CKD HGB USE SMARTSET 30535 05/26/202405/26, 05/26/2023, 04/07/2023, Additional history exists Pneumococcal [...] Documents on File Type Date Recorded Patient Customer Service Representative Teacher Expl anation Advance Directives and Living Will 08/10/2021 ADVANCE DIRECTIVE / LIVING WILL LIVING WILL Healthcare Agents on File Name Relationship Healthcare Agent [facility] Communication Josselyn Judd Adult [facility] Health Care Power of Attor nathalie Care Teams Straightening Machine Operator Relationship Specialty Start Date End Date Verónica [place] MD [address] [place] [address] [place] [phone] PCP - General Family Medicine 09/16/14 documented as of this encounter
--- OUTSIDE RECORDS SUMMARY | 2023-12-10 00:34 | External Medical Summary | Summary of Care ---
Author Name Unknown Organization [facility] Address [address] [place] [address] Phone [phone] Care Team Providers Care Senior Drupal Developer Name Role Phone Verónica Benavides MD Primary Care Provide r Reason for Visit * Reason Onset Date Comments [facility]: Maintenance 11/01/2023 Encounter Details Date Type Department Care Team (Late st Contact Info) Description 11/01/2023 9:30 AM EST Scheduled Telephone [facility], [facility] [address] [place] [address] [facility], Nurse [facility] [address] [place] [address] Allergies Active Allergy Reactions Criticality Noted Date Comments Adhesive Tape Medium 01/30/2022 Ibuprofen Hives 01/13/2012 Aspirin Hives,Rash 09/15/2000 Sulfamethoxazole-Trimeth oprim Nausea/vomiting,Othe r (Please comment) 10/27/2020 Dizziness Ciprofloxacin Hcl 06/16/2019 Hoarse, dizzy,disoriented Morphine 09/21/2021 Blacked out Penicillins Hives,Rash 09/15/2000 Prednisone 12/30/2017 Weakness/memory changes/blurred vision documented as of this encounter (statuses as of 11/01/2023) Medications Medication Sig Dispensed Refills Start Date [...] in the morning. 0 08/08/2021 Active Nystatin 539743 UNIT/GM External Powder (Nystop)Indications: Lydia rash of [...] XL)Indications:Non-i schemic cardiomyopathy (HCC),Coronary artery disease involving [place] coronary artery of [place] heart without angina pectoris,HTN, goal below 140/90 [...] current use of insulin ([facility]),Type 2 diabetes mellitus with hemoglobin A1c goal of less than 8.0% ([facility]) TEST UP TO FOUR TIMES DAILY [...] Tablet 3 07/08/2023 Active OneTouch Delica Plus [id number] :Type 2 diabetes mellitus with hemoglobin A1c goal of less than 8.0% ([facility]) Test up to two times daily or as directed by [facility] pharmacist 200 Each 3 07/11/2023 Active Torsemide 20 MG Oral Tablet (Demadex)Indications :Heart failure, systolic, due to idiopathic cardiomyopathy ([facility]) Take 60 mg by mouth in [...] as of this encounter (statuses as of 11/01/2023) Active Problems Problem Noted Date Diagnosed Date [...] carrier 06/29/2021 Last Assessment & Plan: [facility] Triage Call: Reviewed last C&S - [...] Continue synthroid Coronary artery disease invo lving [place] coronary artery of [place] heart without angina pectoris 07/03/2012 Overview: 60% [...] as of this encounter (statuses as of 11/01/2023) Resolved Problems Problem Noted Date Diagnosed Date [...] as of this encounter (statuses as of 11/01/2023) Immunizations Name Administration Dates Next Due COVID-19 mRNA, LNP-s, No Pre serve, 2-Dose Series ([employer]) 08/29/2021,10/23/2020,10/02/2020 COVID-19, MRNA-LNP, 23-24, P F, 30 MCG/0.3 mL, 12 YRS AND ABOVE, IM ([facility]) 08/04/2023 Covid-19, Mrna, Lnp-s, Pf, B ivalent, 30 Mcg, IM, 12 yrs and above ([employer]) 08/02/2022 Pneumococcal Conjugate Vacc, 13 Valent (Prevnar) [...] encounter Miscellaneous Notes * Telephone Encounter - Carol Portillo RN - 11/01/2023 12:03 PM EST [facility] Telephonic Nurse Follow-Up Call [facility] Subprogram: Primary Care at Home Follow Up Call Type: Weekend Call Acute issue requiring follow-up call: Other: pink eye concern Objective: 10/31/2023 2:19 PM 10/22/2023 2:01 PM 09/10/2023 1:31 PM 07/29/2023 2:56 PM 06/26/2023 3:50 PM VITALS ACROSS ENCOUNTERS BP 108/60 116/74 104/76 108/68 122/76 Pulse 68 68 72 72 60 Weight 107 kg 106.1 kg 106.1 kg BMI 44.59 kg/m2 44.21 kg/m2 44.21 kg/m2 Remote Patient Monitoring: NONE Oxygen Needs: NO supplemental oxygen needs identified wears O2 @ HS DME Needs: NO DME needs identified Medications: No medication or dose adjustments made during acute episode Subjective: Condition Status: Improvement in symptoms but not at baseline Current Concerns: Spoke with Josselyn, reports Regla doing good this morning, did have a nose bleed this morning that has resolved, reports no evidence of pink eye, taking all medications as directed. Disposition: Routed to [facility] and/or [facility] Care Team for further advice and Follow up call scheduled for tomorrow with [facility] [employer] Future Visits Scheduled: Future Appointments-next 60 days Date/Time Provider Specialty Dept Phone 11/02/2023 9:30 AM [facility], Nurse [place] [facility] [phone] 11/11/2023 2:30 PM Destiny Schultz, RN [facility] [phone] 12/03/2023 3:00 PM (Arrive by 2:45 PM) Sheryl Pena PA-C Dermatology [phone] 12/08/2023 1:00 PM Romel Mcclelland, Ophthalmology [phone] 01/06/2024 1:30 PM (Arrive by 1:15 PM) [facility] [phone] 03/30/2024 3:40 PM (Arrive by 3:25 PM) Verónica Benavides MD Family Medicine [phone] 04/21/2024 10:30 AM Chandler Pena MD Urology [phone] Carol Portillo RN documented in this encounter Plan of Treatment Upcoming Encounters Date Type Department Care Team (Late st Contact Info) Description 11/02/2023 9:30 AM EDT Scheduled Telephone [facility] [place], [address] [place] [address] [place], Nurse [facility] 132 [facility] [place] [address] 11/11/2023 2:30 PM EDT Home Visit [facility] [place], [address] [place] [address] Destiny Schultz, RN [address] [place] [address] 12/03/2023 3:00 PM EDT Office Visit Dermatology [address] [place] [address] Sheryl Pena PA-C [address] [place] [address] [place] [address] 12/08/2023 1:00 PM EDT Office Visit Ophthalmology, [facility] 132 [facility] [place] [address] Romel Mcclelland, DO [address] [place] [address] 01/06/2024 1:30 PM EDT Cardiac Studies Cardiology [address] [place] [address] [place], Pacer Clinic [facility] 132 [facility] [place] [address] 03/30/2024 3:40 PM EDT Office Visit Family Medicine [address] [place] [phone] Verónica Benavides MD [address] [place] [address] [place] [address] 04/21/2024 10:30 AM EDT Telemedicine Urology, [facility] 132 [facility] [place] [address] Chandler ePna MD [address] [address] [place] [address] Health Maintenance Due Date Last Done Comments [...] Additional history exists CKD PHOS USE SMARTSET 99631 02/08/202401/23, 08/07/2021, 11/09/2019, Additional history exists TSH 03/25/2024 03/25/2023, 10/2022, 10/28/2022, Additional history exists CKD HGB USE SMARTSET 92643 05/26/202405/26, 05/26/2023, 04/07/2023, Additional history exists Pneumococcal [...] Documents on File Type Date Recorded Patient Pharmaceutical Sales Expl anation Advance Directives and Living Will 08/10/2021 ADVANCE DIRECTIVE / LIVING WILL LIVING WILL Healthcare Agents on File Name Relationship Healthcare Agent [facility] Communication Josselyn Judd Adult Child Health Care Power of Attor nathalie Care Teams Senior Drupal Developer Relationship Specialty Start Date End Date Verónica Benavides MD [address] [place] [address] [place] [phone] PCP - General Family Medicine 09/16/14 documented as of this encounter
--- OUTSIDE RECORDS SUMMARY | 2023-12-10 00:34 | External Medical Summary | Summary of Care ---
Author Name Unknown Organization [facility] Address [address] [place] [address] Phone [phone] Care Team Providers Care Chain Maker Machine Name Role Phone Verónica Benavides MD Primary Care Provide r Reason for Visit * Reason Onset Date Comments [facility]: Maintenance 11/02/2023 Encounter Details Date Type Department Care Team (Late st Contact Info) Description 11/02/2023 9:30 AM EDT Scheduled Telephone [facility], [facility] [address] [place] [address] [facility], Nurse [facility] [address] [place] [address] Allergies Active Allergy Reactions Criticality Noted Date Comments Adhesive Tape Medium 01/30/2022 Ibuprofen Hives 01/13/2012 Aspirin Hives,Rash 09/15/2000 Sulfamethoxazole-Trimeth oprim Nausea/vomiting,Othe r (Please comment) 10/27/2020 Dizziness Ciprofloxacin Hcl 06/16/2019 Hoarse, dizzy,disoriented Morphine 09/21/2021 Blacked out Penicillins Hives,Rash 09/15/2000 Prednisone 12/30/2017 Weakness/memory changes/blurred vision documented as of this encounter (statuses as of 11/02/2023) Medications Medication Sig Dispensed Refills Start Date [...] in the morning. 0 08/08/2021 Active Nystatin 146966 UNIT/GM External Powder (Nystop)Indications: Lydia rash of [...] without long-term current use of insulin ([facility]),Type 2 diabetes mellitus with hemoglobin A1c goal of less than 8.0% ([facility]) TEST UP TO FOUR TIMES DAILY 400 [...] Tablet 3 07/08/2023 Active OneTouch Delica Plus [id number] :Type 2 diabetes mellitus with hemoglobin A1c goal of less than 8.0% ([facility]) Test up to two times daily or as directed by [facility] pharmacist 200 Each 3 07/11/2023 Active Torsemide 20 MG Oral Tablet (Demadex)Indications :Heart failure, systolic, due to idiopathic cardiomyopathy ([facility]) Take 60 mg by mouth in the [...] as of this encounter (statuses as of 11/02/2023) Active Problems Problem Noted Date Diagnosed Date [...] 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 Last Assessment & Plan: [facility] Triage Call: Reviewed last C&S - [...] as of this encounter (statuses as of 11/02/2023) Resolved Problems Problem Noted Date Diagnosed Date [...] as of this encounter (statuses as of 11/02/2023) Immunizations Name Administration Dates Next Due COVID-19 mRNA, LNP-s, No Pre serve, 2-Dose Series ([facility]) 08/29/2021,10/23/2020,10/02/2020 COVID-19, MRNA-LNP, 23-24, P F, 30 MCG/0.3 mL, 12 YRS AND ABOVE, IM ([facility]) 08/04/2023 Covid-19, Mrna, Lnp-s, Pf, B ivalent, 30 Mcg, IM, 12 yrs and above ([facility]) 08/02/2022 Pneumococcal Conjugate Vacc, 13 Valent (Prevnar) [...] Telephone Encounter - Beth Bailon RN - 11/02/2023 8:44 AM EDT Follow up call for eye irritation. Left VM requesting return call. Per notes yesterday, issue resolved. documented in this encounter Plan of Treatment Upcoming Encounters Date Type Department Care Team (Late st Contact Info) Description 11/11/2023 2:30 PM EDT [facility] [place], [facility] 132 [facility] [place] [address] Destiny Schultz, POPPY 132 [facility] [place] [address] 12/03/2023 3:00 PM EDT Office Visit Dermatology [address] [place] [address] Sheryl Pena PA-C [address] [place] [address] [place] [address] 12/08/2023 1:00 PM EDT Office Visit Ophthalmology, [facility] [address] [place] [address] Romel Mcclelland, DO [address] [place], [place] [address] [address] 01/06/2024 1:30 PM EDT Cardiac Studies Cardiology [address] [place] [address] [facility] 132 [facility] [place] [address] 03/30/2024 3:40 PM EDT Office Visit Family Medicine [address] [place] [phone] Verónica Benavides MD [address] [place] [address] [place] [address] 04/21/2024 10:30 AM EDT Telemedicine Urology, [facility] 132 [facility] [place] [address] Chandler Pena MD [address] [place] [address] [address] [place] [address] Health Maintenance Due Date Last Done Comments [...] Additional history exists CKD PHOS USE SMARTSET 62868 02/08/202401/23, 08/07/2021, 11/09/2019, Additional history exists TSH 03/25/2024 03/25/2023, 07/0 10/2022, 10/28/2022, Additional history exists CKD HGB USE SMARTSET 71635 05/26/202405/26, 05/26/2023, 04/07/2023, Additional history exists Pneumococcal [...] Documents on File Type Date Recorded Patient Promotion Producer Expl anation Advance Directives and Living Will 08/10/2021 ADVANCE DIRECTIVE / LIVING WILL LIVING WILL Healthcare Agents on File Name Relationship Healthcare Agent [facility] p Communication Josselyn [facility] Health Care Power of Attor nathalie Care Teams Chain Maker Machine Relationship Specialty Start Date End Date Verónica Benavides MD [address] [place] [address] [place] [address] PCP - General Family Medicine 09/16/14 documented as of this encounter
--- OUTSIDE RECORDS SUMMARY | 2023-12-10 00:34 | External Medical Summary | Summary of Care ---
Author Name Unknown Organization [facility] Address [address] [place] [address] Phone [phone] Care Team Providers Care Truss Maker Name Role Phone Verónica Benavides MD Primary Care Provide r Reason for Visit * Reason Comments [facility]: Acute Encounter Details Date Type Department Care Team ([facility] st Contact Info) Description 10/31/2023 12:30 PM EST [facility] Visit [facility], [facility] [place] [address] Destiny Schultz RN 132 [facility] [place] [address] Allergies Active Allergy Reactions Criticality Noted Date Comments Adhesive Tape Medium 01/30/2022 Ibuprofen Hives 01/13/2012 Aspirin Hives,Rash 09/15/2000 Sulfamethoxazole-Trimeth oprim Nausea/vomiting,Othe r (Please comment) 10/27/2020 Dizziness Ciprofloxacin Hcl 06/16/2019 Hoarse, dizzy,disoriented Morphine 09/21/2021 Blacked out Penicillins Hives,Rash 09/15/2000 Prednisone 12/30/2017 Weakness/memory changes/blurred vision documented as of this encounter (statuses as of 10/31/2023) Medications Medication Sig Dispensed Refills Start Date [...] in the morning. 0 08/08/2021 Active Nystatin 462569 UNIT/GM External Powder (Nystop)Indications: Lydia rash of [...] XL)Indications:Non-i schemic cardiomyopathy (HCC),Coronary artery disease involving craig coronary artery of craig heart without angina pectoris,HTN, goal below 140/90 [...] Tablet 3 07/08/2023 Active OneTouch Delica Plus [id number] :Type 2 diabetes mellitus with hemoglobin A1c goal of less than 8.0% ([facility]) Test up to two times daily or as directed by [facility] pharmacist 200 Each 3 07/11/2023 Active Torsemide 20 MG Oral Tablet (Demadex)Indications :Heart failure, systolic, due to idiopathic cardiomyopathy ([facility]) Take 60 mg by mouth [...] as of this encounter (statuses as of 10/31/2023) Active Problems Problem Noted Date Diagnosed Date [...] carrier 06/29/2021 Last Assessment & Plan: [facility] Triage Call: Reviewed last C&S [...] Continue synthroid Coronary artery disease invo lving craig coronary artery of craig heart without angina pectoris 07/03/2012 Overview: 60% [...] as of this encounter (statuses as of 10/31/2023) Resolved Problems Problem Noted Date Diagnosed Date [...] as of this encounter (statuses as of 10/31/2023) Immunizations Name Administration Dates Next Due COVID-19 mRNA, LNP-s, No Pre serve, 2-Dose Series ([place]) 08/29/2021,10/23/2020,10/02/2020 COVID-19, MRNA-LNP, 23-24, P F, 30 MCG/0.3 mL, 12 YRS AND ABOVE, IM ([facility]) 08/04/2023 Covid-19, Mrna, Lnp-s, Pf, B ivalent, 30 Mcg, IM, 12 yrs and above ([place]) 08/02/2022 Pneumococcal Conjugate Vacc, 13 Valent (Prevnar) [...] Sign Reading Time Taken Comments Blood Pressure 108/60 10/31/2023 2:19 PM EST Pulse 68 10/31/2023 2:19 PM EST Temperature 35.6 C (96.1 F) 10/31/2023 2:19 PM ES T Respiratory Rate 18 10/31/2023 2:19 PM EST Oxygen Saturation 93% 10/31/2023 2:19 PM EST Inhaled Oxygen Concentration - - Weight - - Height - - Body Mass Index - - documented in this encounter Progress Notes * Destiny Schultz RN - 10/31/2023 1:56 PM EST [facility] Visit Date: 10/31/2023 Time: 1:56 PM Name: Regla Castano : 1935 Current Concerns: Patient seen for acute visit- complaint of eye drainage, ? [place] [facility]- Right Caregiver that took care of patient yesterday has pink eye. No redness noted to sclera or drainage noted. Daughter reports she had some drainage this am. No edema to eye. Reports its dry and tears up. Uses Bio-True eye gtts 2-3 x day. Problems/Symptoms: Physical Exam: BP 108/60 (BP Site: Right Arm, BP Position: Sitting, BP Cuff Size: Regular) | Pulse 68 | Temp 35.6 C (96.1 F) (Tympanic) | Resp 18 | SpO2 93% Pain 0 [facility]-10 Completed this Visit: No. No falls since last visit Treatment/Plan: Monitor right eye for redness/ edema/ discomfort Continue eye gtts as per order Follow up phone calls x 2 days. Home Interventions Provided: Reinforced current Plan of Care, including self-management and medication regimen Patient Needs to Remember: Call [facility] with any medical concerns/ red Referrals Needed: N/a Follow Up: Is there cellular connectivity/connectivity in the home? Yes Does the patient have internet in the home? No Patient encouraged to call the intake phone number for all urgent but not emergent issues. Scheduled to follow up with patient in 1 day. Destiny Byers RN 10/31/2023 1:56 PM documented in this encounter Plan of Treatment Upcoming Encounters Date Type Department Care Team (Late st Contact Info) Description 11/01/2023 9:30 AM EST Scheduled Telephone [facility], [facility] [address] [place] [address] [facility], Nurse [place] [address] [address] [place] [address] 11/02/2023 9:30 AM EDT Scheduled Telephone [facility], [facility] [address] [place] [address] [facility], Nurse [place] [address] [address] [place] [address] 11/11/2023 2:30 PM EDT Home Visit [facility], [facility] [address] [place] [address] Destiny Schultz, POPPY [address] [place] [address] 12/03/2023 3:00 PM EDT Office Visit Dermatology [address] [place] [address] Sheryl Pena PA-C [address] [place] [address] [place] [address] 12/08/2023 1:00 PM EDT Office Visit Ophthalmology, [facility] 132 [facility] [place] [address] Romel Mcclelland, DO [address] [place] [address] 01/06/2024 1:30 PM EDT Cardiac Studies Cardiology [address] [place] [address] [place] 132 [facility] [place] [address] 03/30/2024 3:40 PM EDT Office Visit Family Medicine [address] [place] [phone] Verónica Benavides MD [address] [place] [address] [place] [address] 04/21/2024 10:30 AM EDT Telemedicine Urology, [facility] 132 [facility] [place] [address] Chandler Pena MD [address] [place] [address] [place] [address] Health Maintenance Due Date Last Done Comments [...] Additional history exists CKD PHOS USE SMARTSET 89073 02/08/202401/23, 08/07/2021, 11/09/2019, Additional history exists TSH 03/25/2024 03/25/2023, 10/2022, 10/28/2022, Additional history exists CKD HGB USE SMARTSET 84841 05/26/202405/26, 05/26/2023, 04/07/2023, Additional history exists Pneumococcal [...] Documents on File Type Date Recorded Patient Transfer Engineer Expl 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 Communication Josselyn Judd Adult Child Health Care Power of Attor nathalie Care Teams Truss Maker Relationship Specialty Start Date End Date Verónica Benavides MD [address] [place] [address] [place] [phone] PCP - General Family Medicine 09/16/14 documented as of this encounter
--- OUTSIDE RECORDS SUMMARY | 2023-12-10 00:34 | External Medical Summary | Summary of Care ---
Author Name Unknown Organization [facility] Address [address] [place] [address] Phone [phone] Care Team Providers Care Senior Radiation Protection Technician Name Role Phone Verónica Benavides MD Primary Care Provide r Reason for Visit * Reason Onset Date Comments [facility]: Acute 10/31/2023 Encounter Details Date Type Department Care Team (Late st Contact Info) Description 10/31/2023 Telephone [facility], [facility] [address] [facility] [place] [address] [place], Nurse [address] [place] [address] [facility]: [...] in the morning. 0 08/08/2021 Active Nystatin 268987 UNIT/GM External Powder (Nystop)Indications: Lydia rash of [...] XL)Indications:Non-i schemic cardiomyopathy (HCC),Coronary artery disease involving cherokee coronary artery of cherokee heart without angina pectoris,HTN, goal below 140/90 [...] Tablet 3 07/08/2023 Active OneTouch Delica Plus [id number] :Type 2 diabetes mellitus with hemoglobin A1c goal of less than 8.0% ([facility]) Test up to two times daily or as directed by 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 Last Assessment & Plan: [facility] Triage Call: Reviewed last C&S - [...] Continue synthroid Coronary artery disease invo lving cherokee coronary artery of cherokee heart without angina pectoris 07/03/2012 Overview: 60% [...] mRNA, LNP-s, No Pre serve, 2-Dose Series ([employer]) 08/29/2021,10/23/2020,10/02/2020 COVID-19, MRNA-LNP, 23-24, P F, 30 MCG/0.3 mL, 12 YRS AND ABOVE, IM ([facility]) 08/04/2023 Covid-19, Mrna, Lnp-s, Pf, B ivalent, 30 Mcg, IM, 12 yrs and above ([facility]) 08/02/2022 Pneumococcal Conjugate Vacc, 13 Valent (Prevnar) [...] encounter Miscellaneous Notes * Telephone Encounter - Silvina Araujo RN - 10/31/2023 11:17 AM EST Communication Note Name: Regla Castano Situation: 88 yo female in [place] Background: HF, CAD, AVS, CKD, Pacer, DM 2 Assessment: Pt's daughter Josselyn is requesting if [facility] can send a nurse to evaluate the pt today asshe may have pink eye. Josselyn states that the pt has a "little cold this week", onset Friday. Shehas been sniffling a lot and had been taking Tylenol. The pt has a runny nose and a hoarse voice. She is not doing badly however the pt's right eye looks a little different today, it has thicker drainage that "looks goopy" and is yellowish to pinkish in color. She has no fever or chills. She has anoccasional cough- but Josselyn states not enough that she would give the pt Tessalon pearles. The pt's eyes do usually tear, she has runny eyes and they give her BioTrue drops for this. Josselyn reports that the pt's caregiver had gone to acute care and has been diagnosed with pink eye. Recommendation: acute HV Care team availability: CE Schultz RNCM- outgoing call to the pt's daughter to notify her of same Acute nurse: none MIH: none [facility] ingot header Acute Call Date: 10/31/2023 Time: 11:31 AM Name: Regla BOSWELLN: [id number] : 1935 Caller: Josselyn Relationship to pt- daughter Chief Complaint Patient presents with [facility]: Acute HPI: Regla Castano is a 88 year old female whose daughter is calling [facility] to report that she is concerned that the pt may have pink eye and would like for a nurse to see her today. Nursing Assessment: Patient's chief complaint for this call: Pt's daughter Josselyn is requesting if [facility] can send a nurse to evaluate the pt today as she may have pink eye. Josselyn states that the pt has a "little cold this week", onset Friday. She has been sniffling a lot and had been taking Tylenol. The pt has a runny nose and a hoarse voice. She is not doing badly however the pt's right eye looks a little different today, it has thicker drainage that "looks goopy" and is yellowish to pinkish in color. She has no fever or chills. She has an occasional cough- but Josselyn states not enough that she would give the pt Tessalon pearles. The pt's eyes do usually tear, she has runny eyes and they give her BioTrue drops for this. Josselyn reports that the pt 's caregiver had gone to acute care and has been diagnosed with pink eye. Pain Denies pain Baseline Assessment Able to performing ADLs at baseline (walking, daily tasks, etc.): Yes Chief Complaint is related to a chronic condition: No Patient prescribed oxygen? No Patient has been ordered DME equipment (assistive devices, respiratory equipment, etc.): Unknown Medication Reconciliation: (See medication list) Received flu shot this season: Unknown Taking medication as ordered: Yes Medications ordered/taking to treat reason for call: No Heart failure symptoms: No COPD exacerbation symptoms: No Reinforcement Education: Wash hands well after assisting the pt or administering her eye drops Monitor for fever, chills. NVD, eye redness, swelling, drainage, itching, pain, cough, URI symptoms Treatment/Plan: (need to report) Level of call: Acute Appointment scheduled for same day: Yes Clinic Coordinator Provider Name: Shaun MEJIA Treatment plan until appointment: as above Will route to [facility] Scheduled 24/ 48 hr f/u calls Call back instructions provided to patient. Silvina BURNS, RN [facility] Intake Triage Coordinator [phone] documented in this encounter Plan of Treatment Upcoming Encounters Date Type Department Care Team (Late st Contact Info) Description 11/01/2023 9:30 AM EST Scheduled Telephone [facility], [address] [place] [address] [facility] Nurse [address] [place] [address] 11/02/2023 9:30 AM EDT Scheduled Telephone [facility], [address] [place] [address] [facility] Nurse [address] [place] [address] 11/11/2023 2:30 PM EDT Home Visit [facility], [facility] 132 [facility] [place] [address] Destiny Schultz RN 132 [facility] [place] [address] 12/03/2023 3:00 PM EDT Office Visit Dermatology [address] [place] [address] Sheryl Pena PA-C [address] [place] [address] [place] [address] 12/08/2023 1:00 PM EDT Office Visit Ophthalmology, [facility] 132 [facility] [place] [address] Romel Mcclelland T, DO [address] [place] [address] 01/06/2024 1:30 PM EDT Cardiac Studies Cardiology [address] [place] [address] [facility] [address] [place] [address] 03/30/2024 3:40 PM EDT Office Visit Family Medicine [address] [place] [phone] Verónica Benavides MD [address] [place] [address] [place] [address] 04/21/2024 10:30 AM EDT Telemedicine Urology, [facility] [address] [place] [address] Chandler Pena MD 27 [facility] [address] [place] [address] Health Maintenance Due Date Last Done Comments [...] Additional history exists CKD PHOS USE SMARTSET 39955 02/08/202401/23, 08/07/2021, 11/09/2019, Additional history exists TSH 03/25/2024 03/25/2023, 07/0 10/2022, 10/28/2022, Additional history exists CKD HGB USE SMARTSET 41851 05/26/202405/26, 05/26/2023, 04/07/2023, Additional history exists Pneumococcal [...] Documents on File Type Date Recorded Patient Supply Cataloguer Expl anation Advance Directives and Living Will 08/10/2021 ADVANCE DIRECTIVE / LIVING WILL LIVING WILL Healthcare Agents on File Name Relationship Healthcare Agent [facility] p Communication Josselyn Judd Adult Child Health Care Power of Attor nathalie Care Teams Senior Radiation Protection Technician Relationship Specialty Start Date End Date Verónica Benavides MD [address] [place] [address] [place] [address] PCP - General Family Medicine 09/16/14 documented as of this encounter
--- OUTSIDE RECORDS SUMMARY | 2023-12-10 00:35 | External Medical Summary | Summary of Care ---
Author Name Unknown Organization [facility] Address [address] [place] [address] Phone [phone] Care Team Providers Care Fuel Cell Engineer Name Role Phone Verónica Benavides MD Primary Care Provide r Encounter Details Date Type Department Care Team (Late st Contact Info) Description 07/22/2023 Telephone Urology, [facility] [address] [place], [place] [id number] Services, Scheduling [address] [place] [address] Allergies Active Allergy Reactions Criticality Noted Date Comments Adhesive Tape Medium 01/30/2022 Ibuprofen Hives 01/13/2012 Aspirin Hives,Rash 09/15/2000 Sulfamethoxazole-Trimeth oprim Nausea/vomiting,Othe r (Please comment) 10/27/2020 Dizziness Ciprofloxacin Hcl 06/16/2019 Hoarse, dizzy,disoriented Morphine 09/21/2021 Blacked out Penicillins Hives,Rash 09/15/2000 Prednisone 12/30/2017 Weakness/memory changes/blurred vision documented as of this encounter (statuses as of 10/21/2023) Medications Medication Sig Dispensed Refills Start Date [...] in the morning. 0 1 Active Nystatin 528296 UNIT/GM External Powder (Nystop)Indication s:Lydia rash of groin Apply topically to affected area 2 times a day . 60 g 11 2 Active Probiotic Acidophilus BioBeads Oral Capsule Take 1 Capsule by mouth every evening. Just with antibiotics 0 Active Meclizine HCl 25 MG Oral Tablet (Antivert)Indicati ons:Vertigo Take 1 tablet by mouth 3 times [...] then irrigate. 120 mL 3 3 Active Bisacodyl 5 MG Oral Tablet Delayed Release Take 2 Tablets by mouth daily as needed for Constipation. Do not use for more than one week. Do not cut, crush or chew 40 Tablet 1 3 Active Metoprolol Succinate ER 25 MG Oral Tablet Extended Release 24 Hour (toPROL XL)Indications:Non -ischemic cardiomyopathy (HCC),Coronary artery disease involving [place] coronary artery of [place] heart without angina pectoris,HTN, goal below 140/90 Take 1 Tablet by mouth every evening. 90 Tablet 11 3 Active Spironolactone 25 MG Oral Tablet (Aldactone)Indicat ions:Non-ischemic cardiomyopathy (HCC) Take 0.5 Tablets by mouth in the morning. 45 Tablet 3 3 Active metOLazone 2.5 MG Oral Tablet (Zaroxolyn) Take one tablet only when directed by clinician. 5 Tablet 0 3 Active Benzonatate 100 MG Oral Capsule Take 1 Capsule by mouth 3 times a day as needed for Cough. 30 Capsule 1 3 Active Clotrimazole 1 % External Cream (Lotrimin)Indicati ons:Candidal intertrigo APPLY TO THE AFFECTED AREA(S) TWICE DAILY FOR FOURTEEN DAYS 60 g 2 3 Active Ondansetron HCl 4 MG Oral Tablet Take 1 Tablet by mouth every 6 hours as needed for Nausea. 30 Tablet 0 3 Active OneTouch Verio In Vitro Strip (Glucose Blood)Indications: Type 2 diabetes mellitus with stage 3 chronic kidney disease, without long-term current use of insulin ([facility]),Type 2 diabetes mellitus with hemoglobin A1c goal of less than 8.0% ([facility]) TEST UP TO FOUR TIMES DAILY 400 Strip 1 3 Active Potassium Chloride Laura ER 20 MEQ Oral Tablet Extended Release Take 1 Tablet by mouth 2 times a day with morning and evening meals. 180 Tablet 1 3 Active Colchicine 0.6 MG Oral Tablet Take one twice for gout attack 8 Tablet 0 3 Active Fosfomycin Tromethamine 3 GM Oral Packet (Monurol)Indicatio ns:Complicated UTI (urinary tract infection) Take 3 g by mouth every 3 days. 3 Packet 0 3 Active Promethazine-DM 6.25-15 MG/5ML Oral Syrup Take 5 mL by mouth 4 times a day as needed for Cough. 120 mL 1 3 Active Myrbetriq 25 MG Oral Tablet Extended Release 24 Hour (Mirabegron ER) Take 1 Tablet by mouth in the morning. 90 Tablet 3 3 Active OneTouch Delica Plus [id number] ns:Type 2 diabetes mellitus with hemoglobin A1c goal of less than 8.0% ([facility]) Test up to two times daily or as directed by [facility] pharmacist 200 Each 3 3 Active Torsemide 20 MG Oral Tablet (Demadex)Indicatio ns:Heart failure, systolic, due to idiopathic cardiomyopathy (HCC) [...] area nightly 30 g 5 3 Active Levothyroxine Sodium 88 MCG Oral Tablet (Levoxyl)Indicatio ns:Hypothyroidism, unspecified type TAKE ONE TABLET BY MOUTH EVERY MORNING 30 MINS PRIOR TO FIRST MEAL OF THE DAY OR OTHER MEDS 90 Tablet 2 3 023 Discontinued Omeprazole 20 MG Oral Capsule Delayed Release (PriLOSEC) TAKE ONE CAPSULE BY MOUTH EVERY DAY, ONE hour BEFORE THE first meal of THE DAY 90 Capsule 1 3 023 Discontinued Trulicity 0.75 MG/0.5ML Subcutaneous Solution Pen-injector (Dulaglutide) Inject 0.75 mg under the skin once a week. 2 mL 3 3 024 Discontinued Nitrofurantoin Monohyd Macro 100 MG Oral Capsule (Macrobid) Take 1 Capsule by mouth at bedtime. With food. 30 Capsule 3 3 023 Discontinued(Re fill) Nitrofurantoin Monohyd Macro 100 MG Oral Capsule (Macrobid) Take 1 Capsule by mouth in the morning and 1 Capsule before bedtime. With food.. 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 Last Assessment & Plan: [facility] Triage Call: Reviewed last C&S [...] omeprazole Benign paroxysmal vertigo of both ears 11/15/201 9 Lymphedema of both lower extremities 08/11/2018 [...] Continue synthroid Coronary artery disease invo lving [place] coronary artery of [place] heart without angina pectoris 07/03/2012 Overview: 60% [...] as of this encounter (statuses as of 10/21/2023) Resolved Problems Problem Noted Date Diagnosed Date [...] as of this encounter (statuses as of 10/21/2023) Immunizations Name Administration Dates Next Due COVID-19 mRNA, LNP-s, No Pre serve, 2-Dose Series ([employer]) 08/29/2021,10/23/2020,10/02/2020 Covid-19, Mrna, Lnp-s, Pf, B ivalent, 30 [...] encounter Miscellaneous Notes * Telephone Encounter - Chandler Pena MD - 07/22/2023 2:00 PM EST Patient was provided 30 pills with 3 refills recently. 1 refill for BID provided. Thx, HM * Telephone Encounter - Paris Santos LPN - 07/22/2023 12:34 PM EST Patient needs further antibiotic prescription. Please sendto [facility] pharmacy. Thank you Sabra * Telephone Encounter - Chandler Pena MD - 07/22/2023 12:08 PM EST If daughter wants to give it longer, she can proceed. Thanks, HM * Telephone Encounter - Yarely Mccrary LPN - 07/22/2023 8:43 AM EST Please advise, positive urine culture on 07/07. * Telephone Encounter - Beth Sinha OSA - 07/22/2023 8:36 AM EST Patient daughter calling, wanting to know if she should continue giving 2 a day medication instead of one for a few days longer, thinks the urine is looking a little better but a few more days longerof the extra dose may help, and if so they need another refill sent in because they will be out of the medication Nitrofurantoin (Macrobid), please call to advise, and sent however many extra days work of pills pt is recommended to take, thanks documented in this encounter Plan of Treatment Upcoming Encounters Date Type Department Care Team (Late st Contact Info) Description 10/22/2023 2:00 PM EST Office Visit Cardiology, [facility] 132 [facility] [place] [address] Mariano Patel MD [address] [place] [address] 10/23/2023 5:30 PM EST Home Visit [facility] at [facility] 132 [facility] [place] [address] Destiny Schultz RN 132 [facility] [place] [address] 12/03/2023 3:00 PM EDT Office Visit Dermatology [address] [place] [address] Sheryl Pena PA-C [address] [place] [address] [place] [address] 12/08/2023 1:00 PM EDT Office Visit Ophthalmology, [facility] 132 [facility] [place] [address] Romel Mcclelland, DO [address] [place] [address] 01/06/2024 1:30 PM EDT Cardiac Studies Cardiology [address] [place] [address] [facility] 132 [facility] [place] [address] 03/30/2024 3:40 PM EDT Office Visit Family Medicine [address] [place] [phone] Verónica Benavides MD [address] [place] [address] [place] [address] 04/21/2024 10:30 AM EDT Telemedicine Urology, [facility] [address] [place] [address] Chandler Pena MD [address] [place] [address] [place] [address] Health Maintenance Due Date Last Done Comments [...] Additional history exists CKD PHOS USE SMARTSET 03740 02/08/202401/23, 08/07/2021, 11/09/2019, Additional history exists TSH 03/25/2024 03/25/2023, 07/0 10/2022, 10/28/2022, Additional history exists CKD HGB USE SMARTSET 84718 05/26/202405/26, 05/26/2023, 04/07/2023, Additional history exists Pneumococcal [...] Documents on File Type Date Recorded 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 Communication Josselyn [facility] Health Care Power of Attor nathalie Care Teams Fuel Cell Engineer Relationship Specialty Start Date End Date Verónica Benavides MD [address] [place] [address] [place] [phone] PCP - General Family Medicine 09/16/14 documented as of this encounter
--- OUTSIDE RECORDS SUMMARY | 2023-12-10 00:35 | External Medical Summary | Summary of Care ---
Author Name Unknown Organization [facility] Address [address] [place] [address] Phone [phone] Care Team Providers Care Maintenance Plumber Name Role Phone Verónica Benavides MD Primary Care Provide r Reason for Visit * Reason Onset Date Comments Medication Refill 10/22/2023 Re: Clotrimazo le 1% Cream Encounter Details Date Type Department Care Team (Late st Contact Info) Description 10/22/2023 Refill [facility] [address] [place] [address] Murray Smith PA-C [address] [place] [address] Candidal intertrigo Allergies Active Allergy Reactions Criticality Noted Date Comments Adhesive Tape Medium 01/30/2022 Ibuprofen Hives 01/13/2012 Aspirin Hives,Rash 09/15/2000 Sulfamethoxazole-Trimeth oprim Nausea/vomiting,Othe r (Please comment) 10/27/2020 Dizziness Ciprofloxacin Hcl 06/16/2019 Hoarse, dizzy,disoriented Morphine 09/21/2021 Blacked out Penicillins Hives,Rash 09/15/2000 Prednisone 12/30/2017 Weakness/memory changes/blurred vision documented as of this encounter (statuses as of 10/22/2023) Medications Medication Sig Dispensed Refills Start Date [...] in the morning. 0 08/08/2021 Active Nystatin 363211 UNIT/GM External Powder (Nystop)Indications :Lydia rash of groin Apply topically to affected area 2 times a day . 60 g 11 01/03/2022 Active Probiotic Acidophilus BioBeads Oral Capsule Take [...] then irrigate. 120 mL 3 11/29/2022 Active Bisacodyl 5 MG Oral Tablet Delayed Release Take 2 Tablets by mouth daily as needed for Constipation. Do not use for more than one week. Do not cut, crush or chew 40 Tablet 1 01/24/2023 Active Metoprolol Succinate ER 25 MG Oral Tablet Extended Release 24 Hour (toPROL XL)Indications:Non- ischemic cardiomyopathy (HCC),Coronary artery disease involving [place] coronary artery of [place] heart without angina pectoris,HTN, goal below 140/90 [...] long-term current use of insulin ([facility]),Type 2 diabetes mellitus with hemoglobin A1c goal of less than 8.0% ([facility]) TEST UP TO FOUR TIMES [...] 3 days. 3 Packet 0 06/04/2023 Active Promethazine-DM 6.25-15 MG/5ML Oral Syrup Take 5 mL by mouth 4 times a day as needed for Cough. 120 mL 1 06/16/2023 Active Myrbetriq 25 MG Oral Tablet Extended Release 24 Hour (Mirabegron ER) Take 1 Tablet by mouth in the morning. 90 Tablet 3 07/08/2023 Active OneTouch Delica Plus [id number] s:Type 2 diabetes mellitus with hemoglobin A1c goal of less than 8.0% ([facility]) Test up to two times daily or as directed by [facility] pharmacist 200 Each 3 07/11/2023 Active Torsemide 20 MG Oral Tablet (Demadex)Indication s:Heart failure, systolic, due to idiopathic cardiomyopathy ([facility]) Take 60 mg by mouth [...] FOURTEEN DAYS 60 g 2 10/22/2023 Active Clotrimazole 1 % External Cream (Lotrimin)Indicatio ns:Candidal intertrigo APPLY TO THE AFFECTED AREA(S) TWICE DAILY FOR FOURTEEN DAYS 60 g 2 05/06/2023 4 Discontinu ed(Refill) documented as of this encounter (statuses as of 10/22/2023) Active Problems Problem Noted Date Diagnosed Date [...] 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 Triage Call: Reviewed last C&S [...] Continue synthroid Coronary artery disease invo lving [place] coronary artery of [place] heart without angina pectoris 07/03/2012 Overview: 60% [...] as of this encounter (statuses as of 10/22/2023) Resolved Problems Problem Noted Date Diagnosed Date [...] as of this encounter (statuses as of 10/22/2023) Immunizations Name Administration Dates Next Due COVID-19 mRNA, LNP-s, No Pre serve, 2-Dose Series ([employer]) 08/29/2021,10/23/2020,10/02/2020 COVID-19, MRNA-LNP, 23-24, P F, 30 MCG/0.3 mL, 12 YRS AND ABOVE, IM ([facility]) 08/04/2023 Covid-19, Mrna, Lnp-s, Pf, B ivalent, 30 Mcg, IM, 12 yrs and above ([employer]) 08/02/2022 Pneumococcal Conjugate Vacc, 13 Valent (Prevnar) [...] encounter Miscellaneous Notes * Telephone Encounter - Murray Smith PA-C - 10/22/2023 9:45 AM ESTSigned Prescriptions: Disp Refills Clotrimazole 1 % External Cream (Lotrimin) 60 g 2 Sig: APPLY TO THE AFFECTED AREA(S) TWICE DAILY FOR FOURTEEN DAYS Authorizing Provider: MURRAY SMITH * Telephone Encounter - Tonie Painting OSA - 10/22/2023 9:18 AM EST Please authorize with refills, as appropriate. Thank you, BETTY Lyon documented in this encounter Plan of Treatment Upcoming Encounters Date Type Department Care Team (Late st Contact Info) Description 10/22/2023 2:00 PM EST Office Visit Cardiology, [facility] 132 [facility] [place] [address] Mariano Patel MD [address] [place] [address] 10/23/2023 5:30 PM EST [facility] Visit [facility] 132 [facility] [place] [address] Destiny Schultz RN 132 [facility] [place] [address] 12/03/2023 3:00 PM EDT Office Visit Dermatology [address] [place] [address] Sheryl Pena PA-C [address] [place] [address] [place] [address] 12/08/2023 1:00 PM EDT Office Visit Ophthalmology, [address] [place] [address] Romel Mcclelland, DO [address] [place] [address] 01/06/2024 1:30 PM EDT Cardiac Studies Cardiology [address] [place] [address] Aleta Able [facility] 132 [facility] [place] [address] 03/30/2024 3:40 PM EDT Office Visit Family Medicine [address] [place] [phone] Verónica Benavides MD [address] [place] [address] [place] [address] 04/21/2024 10:30 AM EDT Telemedicine Urology, [facility] 132 [facility] [place] [address] Chandler Pena MD [address] [place] [address] [place] [address] Health Maintenance Due Date Last Done Comments [...] Additional history exists CKD PHOS USE SMARTSET 21645 02/08/202401/23, 08/07/2021, 11/09/2019, Additional history exists TSH 03/25/2024 03/25/2023, 07/0 10/2022, 10/28/2022, Additional history exists CKD HGB USE SMARTSET 61854 05/26/202405/26, 05/26/2023, 04/07/2023, Additional history exists Pneumococcal [...] as of this encounter Visit Diagnoses Diagnosis Candidal intertrigo Candidiasis of skin and nails documented in this encounter Advance Directives Documents on File Type Date Recorded Patient Control Clerk Head Expl anation Advance Directives and Living Will 08/10/2021 ADVANCE DIRECTIVE / LIVING WILL LIVING WILL Healthcare Agents on File Name Relationship Healthcare Agent [facility] Communication Josselyn Judd [facility] Child Health Care Power of Attor nathalie Care Teams Maintenance Plumber Relationship Specialty Start Date End Date Verónica Benavides MD [address] [place] [address] [place] [address] PCP - General Family Medicine 09/16/14 documented as of this encounter
--- OUTSIDE RECORDS SUMMARY | 2023-12-10 00:35 | External Medical Summary | Summary of Care ---
Author Name Unknown Organization [facility] Address [address] [place] [address] Phone [phone] Care Team Providers Care Multimedia Services Manager Name Role Phone Verónica Benavides MD Primary Care Provide r Reason for Visit * Reason Comments NEW PATIENT Encounter Details Date Type Department Care Team (Late st Contact Info) Description 10/22/2023 2:00 PM EST Office Visit Cardiology, [facility] [address] [place] [address] Mariano Patel MD [address] [place] [address] Nonrheumatic aortic valve stenosis*; Chronic combined systolic (congestive) and diastolic (congestive) heart failure (HCC); Biventricular cardiac pacemaker in situ Allergies Active Allergy Reactions Criticality Noted Date [...] in the morning. 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 Last Assessment & Plan: [facility] Triage Call: Reviewed last C&S - [...] Continue synthroid Coronary artery disease invo lving [place] coronary artery of [place] heart without angina pectoris 07/03/2012 Overview: 60% [...] mRNA, LNP-s, No Pre serve, 2-Dose Series ([employer]) 08/29/2021,10/23/2020,10/02/2020 COVID-19, MRNA-LNP, 23-24, P F, 30 MCG/0.3 mL, 12 YRS AND ABOVE, IM ([employer]) 08/04/2023 Covid-19, Mrna, Lnp-s, Pf, B ivalent, 30 Mcg, IM, 12 yrs and above ([employer]ef[employer]) 08/02/2022 Pneumococcal Conjugate Vacc, 13 Valent (Prevnar) [...] Sign Reading Time Taken Comments Blood Pressure 116/74 10/22/2023 2:01 PM EST Pulse 68 10/22/2023 2:01 PM EST Temperature - - Respiratory Rate 16 10/22/2023 2:01 PM EST Oxygen Saturation - - Inhaled Oxygen Concentration - - Weight 107 kg (236 lb) 10/22/2023 2:01 PM EST Height - - Body Mass Index 44.59 02/26/2023 10:32 AM EDT documented in this encounter Progress Notes * Mariano Patel MD - 10/22/2023 2:22 PM EST I have reviewed the advanced practitioner's documentation on the date of service referenced in note, and I agree with, and take responsibility for the plan of care. 88 year old female with severe symptomatic H/o DCM with ADHF Biv pacemaker Chronic lymphedema SOBOE. Relatively sedantary, not very active Echo done at [facility] in 02/2023: EF: normal velocity: 412 cm/s She has extremely limited functional capacity and in need for 24X7 care I had a long conversation with the patient, she is NOT a candidate for percutaneous or surgical therapies due to extremely limited functional capacity. Mariano Patel MD MPH Interventional Cardiology Pager: [phone] 10/22/23 2:56 PM * Maria Dolores Melendez CRNP - 10/22/2023 2:00 PM EST Images from the original note were not included. Valve Clinic Cardiology Outpatient Clinic Note 10/22/2023 Patient disposition: NEW PATIENT Primary Artist Woodblock: Dr. Heredia Referring Provider: Dr. Heredia PCP: Verónica Benavides MD Past medical history: Aortic stenosis Chronic systolic and diastolic CHF Dilated cardiomyopathy with an LVEF of 30% with interval improvement to 50% Status post biventricular pacemaker, no a ICD capability Mild nonobstructive CAD cardiac catheterization, 2018 Chronic lymphedema Obesity Generalized weakness HPI 88-year-old medically complex female presenting to the valve clinic today as a new patient. Referred due to aortic stenosis. Most recent echocardiogram dated 03/22/2023 completed at [facility] showed a normal LVEF of 55-60% mild hypokinesis of the basal inferior wall. Severe aortic valve stenosis noted, velocity of 412 cm/sec. Today the patient presents with her 2 daughters. Notes that over the last 6 months or shortness of breath has been progressively worse however patient lives a very sedentary life. Only walks about 20ft to the bathroom but uses a wheelchair to get back. She is more fatigued and weak in her knees. She denies chest pain. No lightheadedness or dizziness. No palpitations. Has chronic lower extremity lymphedema. Volume status appears well managed, daughter state that her lower extremity edema is at baseline if not improved. No fever, chills, cough, hematochezia, melena, or hemoptysis. Patient is compliant with all medications, and offers no side effects. Denies tobacco and alcohol use. Has dentures. Denies bleeding issues. Denies any known anesthesia issues. Current Outpatient Medications Medication Sig Dispense Refill STOOL SOFTENER 100 MG PO TABS 3-4 tabs daily as needed GLUCOSAMINE CHONDR 500 COMPLEX PO CAPS Take by mouth 2 times a day. MAGNESIUM OXIDE 400 MG PO TABS one pill each day Cyanocobalamin 1000 MCG Oral Tablet (Cyanocobalamin) Take 1 Tablet by mouth in the morning. Probiotic Acidophilus BioBeads Oral Capsule Take 1 Capsule by mouth every evening. Just with antibiotics Meclizine HCl 25 MG Oral Tablet (Antivert) Take 1 tablet by mouth 3 times a day as needed for dizziness 30 Tablet 5 Vitamin D-3 25 MCG (1000 UT) Oral Capsule Take 1 Capsule by mouth in the morning. Bisacodyl 5 MG Oral Tablet Delayed Release Take 2 Tablets by mouth daily as needed for Constipation. Do not use for more than one week. Do not cut, crush or chew 40 Tablet 1 Metoprolol Succinate ER 25 MG Oral Tablet Extended Release 24 Hour (toPROL XL) Take 1 Tablet by mouth every evening. 90 Tablet 11 Spironolactone 25 MG Oral Tablet (Aldactone) Take 0.5 Tablets by mouth in the morning. 45 Tablet 3 Benzonatate 100 MG Oral Capsule Take 1 Capsule by mouth 3 times a day as needed for Cough. 30 Capsule 1 Potassium Chloride Laura ER 20 MEQ Oral Tablet Extended Release Take 1 Tablet by mouth 2 times a daywith morning and evening meals. 180 Tablet 1 Myrbetriq 25 MG Oral Tablet Extended Release 24 Hour (Mirabegron ER) Take 1 Tablet by mouth in the morning. 90 Tablet 3 Torsemide 20 MG Oral Tablet (Demadex) Take 60 mg by mouth in the morning, 40 mg by mouth in the afternoon. Additional 20 mg in the afternoon ONLY if directed by health care provider for weight gain of 3 lbs or more. 180 Tablet 3 Estrogens Conjugated 0.625 MG/GM Vaginal Cream (Premarin) Administer 0.5 g into the vagina every night at bedtime. Pea-sized amount around vulvar area nightly 30 g 5 Omeprazole 20 MG Oral Capsule Delayed Release (PriLOSEC) TAKE ONE CAPSULE BY MOUTH EVERY DAY, ONE hour BEFORE THE first meal of THE DAY 90 Capsule 1 Levothyroxine Sodium 88 MCG Oral Tablet (Levoxyl) TAKE ONE TABLET BY MOUTH EVERY MORNING 30 MINS PRIOR TO FIRST MEAL OF THE DAY OR OTHER MEDS 90 Tablet 3 Nitrofurantoin Monohyd Macro 100 MG Oral Capsule (Macrobid) Take 1 Capsule by mouth at bedtime. With food. 90 Capsule 3 Trulicity 0.75 MG/0.5ML Subcutaneous Solution Pen-injector (Dulaglutide) Inject 0.75 mg under the skin once a week. 2 mL 3 Acetaminophen (APAP) 325 MG Tablet Take 1 Tablet by mouth every 6 hours as needed. (Patient not taking: Reported on 10/22/2023) [facility] EHR w/Device Kit Use up to 4 times a day E11.9 1 Kit 0 Nystatin 249270 UNIT/GM External Powder (Nystop) Apply topically to affected area 2 times a day . (Patient not taking: Reported on 10/22/2023) 60 g 11 D-Mannose 500 MG Oral Capsule Take by mouth 2 times a day. 2 caps two times daily Docusate Sodium 50 MG/5ML Oral Liquid (Colace) Place 10 gtts to each ear for 30 min then irrigate. (Patient not taking: Reported on 10/22/2023) 120 mL 3 metOLazone 2.5 MG Oral Tablet (Zaroxolyn) Take one tablet only when directed by clinician. 5 Tablet0 Ondansetron HCl 4 MG Oral Tablet Take 1 Tablet by mouth every 6 hours as needed for Nausea. 30 Tablet 0 OneTouch Verio In Vitro Strip (Glucose Blood) TEST UP TO FOUR TIMES DAILY 400 Strip 1 Colchicine 0.6 MG Oral Tablet Take one twice for gout attack 8 Tablet 0 Fosfomycin Tromethamine 3 GM Oral Packet (Monurol) Take 3 g by mouth every 3 days. (Patient not taking: Reported on 10/22/2023) 3 Packet 0 Promethazine-DM 6.25-15 MG/5ML Oral Syrup Take 5 mL by mouth 4 times a day as needed for Cough. 120mL 1 OneTouch Delica Plus [id number] Test up to two times daily or as directed by [facility] pharmacist 200 Each 3 Clotrimazole 1 % External Cream (Lotrimin) APPLY TO THE AFFECTED AREA(S) TWICE DAILY FOR FOURTEEN DAYS (Patient not taking: Reported on 10/22/2023) 60 g 2 No current facility-administered medications for this visit. Past Medical History: Diagnosis Date ACEI/ARB contraindicated Calculus of kidney Diverticulitis of colon DM type 2, goal A1c below 7 Diabetes Type II, Controlled Esophageal reflux Impaired glucose tolerance Obesity, BMI not known Past Surgical History: Procedure Laterality Date ANESTH, TOTAL KNEE REPLACEMENT Bilateral FRAGMENT KIDNEY STONE BY SHOCK WAVE 11/08/05 ESWL (Extracorporeal Shock Wave Lithotripsy) FRAGMENT KIDNEY STONE BY SHOCK WAVE 07-06-2008 ESWL (Extracorporeal Shock Wave Lithotripsy) FRAGMENT KIDNEY STONE BY SHOCK WAVE 08/12/2008 INFORMATION 2000 excision of seborrheic keratosis on L breast INFORMATION plate in left arm LAPAROSCOPY; CHOLECYSTECTOMY TOTAL HYSTERECTOMY age 48 fibroids Social History Tobacco Use Smoking status: Never Smokeless tobacco: Never Vaping Use Vaping Use: Never used Substance Use Topics Alcohol use: No Drug use: No Review of patient's allergies indicates: Allergen Reactions Adhesive Tape Advil [Ibuprofen] Hives Aspirin Hives and Rash Bactrim [Sulfamethoxazole-Trimethoprim] Nausea/vomiting and Other (Please comment) Dizziness Ciprofloxacin Hcl Hoarse, dizzy,disoriented Morphine Blacked out Penicillins Hives and Rash Prednisone Weakness/memory changes/blurred vision Review of Systems: See HPI for pertinent positives. All others negative, other than those noted in HPI. Physical Exam BP 116/74 | Pulse 68 | Resp 16 | Wt 107 kg (236 lb) | BMI 44.59 kg/m | BSA 2.15 m General: No acute distress. A+Ox3. HEENT: Normocephalic. Atraumatic. Conjunctiva and sclera clear. NECK: No carotid bruits. No JVD. Carotid upstrokes are brisk. Heart: RRR. S1+, diminished S2 +3/6 systolic murmur Lungs: Clear to auscultation. No wheezes, rhonchi, rales. Abdomen: Normal bowel sounds. Soft. Nontender. No masses or organomegaly. No abdominal bruits. Extremities: No edema. No clubbing or cyanosis. Pulses: radial=2/4, posterior tibial=2/4, dorsalis pedis = 2/4. NEURO: No focal deficits. PSYCH: Normal. Lab data/imaging study review: Echo 03/22/2023 Ao V2 max: 412 cm/sec Ao mean P.9 mmHg KAYLA(I,D): 0.96 cm2 Impression/Plan: Patient care was discussed/coordinated with Dr. Patel. Please refer to above for full plan of care. 1. Nonrheumatic aortic valve stenosis Severe symptomatic aortic stenosis. NYHA class 3, volume status compensated. 1. Discussed TAVR procedure, patient hesitant to proceeding at this time. Per Dr. Patel-- she is NOT a candidate for percutaneous or surgical therapies due to extremely limited functional capacity. 2. Chronic combined systolic (congestive) and diastolic (congestive) heart failure (HCC) 3. Biventricular cardiac pacemaker in situ Chronic combined diastolic and systolic CHF, NYHA class 3. LVEF as low as 30%, improved to 55% on recent echo at [facility], 02/2023 Status post biventricular pacemaker, no AICD function Continue goal-directed medical therapy and diuretics as ordered. The patient agrees to the above plan and will call with additional questions or concerns. ER with all emergencies advised. I spent a total of 80 minutes on the date of service in preparation, delivery, and documentation ofthe care provided to Regla Castano excluding any time spent in the performance of separately billed services. GASTON Curiel, Department of Cardiology This chart was completed in part utilizing [employer] Speech Voice Recognition Software. Grammatical errors, random word insertions, prounoun errors, and incomplete sentences are an occasional consequence of this system due to software limitations, ambient noise, and hardware issues. Any formal questions or concerns about the content, text, or information contained within the body of this dictation should be directly addressed to the provider for clarification. documented in this encounter Nursing Notes * Greg Ward RN - 10/22/2023 2:01 PM EST Examination Room: room 15 Name: Regla Castano Date of : (1935). Reason for Visit: for new patient Interim Hospitalization(s): denies Problems/Concerns: denies Chest Pain/SOB: denies [facility] Discussed: Yes [facility] is a way you can talk to your provider online through e-mail. Would you like to sign up? I can activate it for you? ALREADY ACTIVE Patient was instructed to not get up on the exam table until directed and assisted by their provider; patient is to remain seated in the chair/ wheelchair/ exam table for fall prevention and safety reasons. Patient is aware to have assistance to step down off exam table with personnel. Patient voiced full comprehension of instructions. documented in this encounter Plan of Treatment Upcoming Encounters Date Type Department Care Team (Late st Contact Info) Description 10/23/2023 5:30 PM EST [facility] [address] [facility] [place] [address] Destiny Schultz RN 132 [facility] [place] [address] 12/03/2023 3:00 PM EDT Office Visit Dermatology [address] [place] [address] Sheryl Pena PA-C [address] [place] [address] [place] [address] 12/08/2023 1:00 PM EDT Office Visit Ophthalmology, [facility] 132 [facility] [place] [address] Romel Mcclelland, DO 16 [facility] [place] [address] 01/06/2024 1:30 PM EDT Cardiac Studies Cardiology [address] [place] [address] [facility] [address] [place] [address] 03/30/2024 3:40 PM EDT Office Visit Family Medicine [address] [place] [phone] Verónica Benavides MD [address] [place] [address] [place] [address] 04/21/2024 10:30 AM EDT Telemedicine Urology, [address] [place] [address] Chandler Pena MD [address] [address] [place] [address] Health Maintenance Due Date Last Done Comments [...] Additional history exists CKD PHOS USE SMARTSET 08317 02/08/202401/23, 08/07/2021, 11/09/2019, Additional history exists TSH 03/25/2024 03/25/2023, 07/0 10/2022, 10/28/2022, Additional history exists CKD HGB USE SMARTSET 30723 05/26/202405/26, 05/26/2023, 04/07/2023, Additional history exists Pneumococcal [...] as of this encounter Visit Diagnoses Diagnosis Nonrheumatic aortic valve stenosis- Primary Aortic valve disorders 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 pacemaker in situ Cardiac pacemaker in situ documented in this encounter Advance Directives Documents on File Type Date Recorded Patient Wildlife Control Agent Expl anation Advance Directives and Living Will 08/10/2021 ADVANCE DIRECTIVE / LIVING WILL LIVING WILL Healthcare Agents on File Name Relationship [facility] Josselyn Judd Adult Child Health Care Power of Attor nathalie Care Teams Multimedia Services Manager Relationship Specialty Start Date End Date Verónica Benavides MD [address] [place] [address] [place] [phone] PCP - General Family Medicine 09/16/14 documented as of this encounter
--- OUTSIDE RECORDS SUMMARY | 2023-12-10 00:35 | External Medical Summary | Summary of Care ---
Author Name Unknown Organization [facility] Address [address] [place] [address] Phone [phone] Care Team Providers Care Intensive Care Anaesthetist Name Role Phone Verónica Jiang MD Primary Care Provide r Reason for Visit * Reason Comments eRx-Medication Refill Encounter Details Date Type Department Care Team (Late st Contact Info) Description 10/15/2023 Refill Pharmacy, [address] [place] [address] Verónica Jiang MD [address] [place] [address] [place] [phone] Allergies Active Allergy Reactions Criticality Noted Date Comments Adhesive Tape Medium 01/30/2022 Ibuprofen Hives 01/13/2012 Aspirin Hives,Rash 09/15/2000 Sulfamethoxazole-Trimeth oprim Nausea/vomiting,Othe r (Please comment) 10/27/2020 Dizziness Ciprofloxacin Hcl 06/16/2019 Hoarse, dizzy,disoriented Morphine 09/21/2021 Blacked out Penicillins Hives,Rash 09/15/2000 Prednisone 12/30/2017 Weakness/memory changes/blurred vision documented as of this encounter (statuses as of 10/15/2023) Medications Medication Sig Dispensed Refills Start Date [...] in the morning. 0 1 Active Nystatin 433150 UNIT/GM External Powder (Nystop)Indications :Lydia rash of [...] XL)Indications:Non- ischemic cardiomyopathy (HCC),Coronary artery disease involving [place] coronary artery of [place] heart without angina pectoris,HTN, goal below 140/90 [...] 3 Active Clotrimazole 1 % External Cream (Lotrimin)Indicatio [...] Tablet 3 3 Active OneTouch Delica Plus [id number] s:Type 2 diabetes mellitus with hemoglobin A1c goal of less than 8.0% ([facility]) Test up to two times daily or as directed by [facility] pharmacist 200 Each 3 3 Active Torsemide 20 MG Oral Tablet (Demadex)Indication s:Heart failure, systolic, due to idiopathic cardiomyopathy ([facility]) Take 60 mg by mouth in the [...] a week. 2 mL 3 4 Active Trulicity 0.75 MG/0.5ML Subcutaneous Solution Pen-injector (Dulaglutide) Inject 0.75 mg under the skin once a week. 2 mL 3 3 10/15/19 24 Discontinued documented as of this encounter (statuses as of 10/15/2023) Active Problems Problem Noted Date Diagnosed Date [...] 06/29/2021 Last Assessment & Plan: [facility] Triage Call: Reviewed last C&S [...] Continue synthroid Coronary artery disease invo lving [place] coronary artery of [place] heart without angina pectoris 07/03/2012 Overview: 60% [...] as of this encounter (statuses as of 10/15/2023) Resolved Problems Problem Noted Date Diagnosed Date [...] as of this encounter (statuses as of 10/15/2023) Immunizations Name Administration Dates Next Due COVID-19 mRNA, LNP-s, No Pre serve, 2-Dose Series ([employer]) 08/29/2021,10/23/2020,10/02/2020 COVID-19, MRNA-LNP, 23-24, P F, 30 MCG/0.3 mL, 12 YRS AND ABOVE, IM ([employer]) 08/04/2023 Covid-19, Mrna, Lnp-s, Pf, B ivalent, [...] encounter Miscellaneous Notes * Telephone Encounter - Verónica Jiang MD - 10/15/2023 10:55 AM EST Signed Prescriptions: Disp Refills Trulicity 0.75 MG/0.5ML Subcutaneous Solut*2 mL 3 Sig: Inject 0.75 mg under the skin once a week. Authorizing Provider: VERÓNICA JIANG * Telephone Encounter - Kathe Ahmadi RPh - 10/15/2023 10:12 AM EST Pending Prescriptions: Disp Refills Trulicity 0.75 MG/0.5ML Subcutaneous Solut*2 mL 3 Sig: Inject 0.75 mg under the skin once a week. documented in this encounter Plan of Treatment Upcoming Encounters Date Type Department Care Team (Late st Contact Info) Description 10/22/2023 2:00 PM EST Office Visit Cardiology, [facility] 132 [facility] [place] [address] Mariano Patel MD [address] [place] [address] 10/23/2023 5:30 PM EST [facility] Visit [facility], [facility] 132 [facility] [place] [address] Destiny Schultz, POPPY 132 [facility] [place] [address] 12/03/2023 3:00 PM EDT Office Visit Dermatology [address] [place] [address] Sheryl Pena PA-C [address] [place] [address] [place] [address] 12/08/2023 1:00 PM EDT Office Visit Ophthalmology, [address] [place] [address] Romel Mcclelland T, DO [address] [place] [address] 01/06/2024 1:30 PM EDT Cardiac Studies Cardiology [address] [place] [address] [facility] 132 [facility] [place] [address] 03/30/2024 3:40 PM EDT Office Visit Family Medicine [address] [place] [phone] Verónica Jiang MD [address] [place] [address] [place] [address] 04/21/2024 10:30 AM EDT Telemedicine Urology, [facility] 132 [facility] [place] [address] Chandler Pena MD 27 [facility] [place] [address] [place] [address] Health Maintenance Due Date Last Done Comments [...] Additional history exists CKD PHOS USE SMARTSET 40844 02/08/202401/23, 08/07/2021, 11/09/2019, Additional history exists TSH 03/25/2024 03/25/2023, 07/0 10/2022, 10/28/2022, Additional history exists CKD HGB USE SMARTSET 46748 05/26/202405/26, 05/26/2023, 04/07/2023, Additional history exists Pneumococcal [...] Documents on File 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
--- OUTSIDE RECORDS SUMMARY | 2023-12-10 00:35 | External Medical Summary | Summary of Care ---
Author Name Unknown Organization [facility] Address [address] [place] [address] Phone [phone] Care Team Providers Care Looper Operator Name Role Phone Verónica Beanvides MD Primary Care Provide r Reason for Visit * Reason Onset Date Comments [facility]: Maintenance 10/11/2023 Encounter Details Date Type Department Care Team ([facility] st Contact Info) Description 10/11/2023 1:00 PM EST Scheduled Telephone [facility], [facility] [place] [address] [place] [address] [facility], Nurse [facility] [address] [place] [address] Allergies Active Allergy Reactions Criticality Noted Date Comments Adhesive Tape Medium 01/30/2022 Ibuprofen Hives 01/13/2012 Aspirin Hives,Rash 09/15/2000 Sulfamethoxazole-Trimeth oprim Nausea/vomiting,Othe r (Please comment) 10/27/2020 Dizziness Ciprofloxacin Hcl 06/16/2019 Hoarse, dizzy,disoriented Morphine 09/21/2021 Blacked out Penicillins Hives,Rash 09/15/2000 Prednisone 12/30/2017 Weakness/memory changes/blurred vision documented as of this encounter (statuses as of 10/11/2023) Medications Medication Sig Dispensed Refills Start Date [...] in the morning. 0 08/08/2021 Active Nystatin 967947 UNIT/GM External Powder (Nystop)Indications: Lydia rash of [...] XL)Indications:Non-i schemic cardiomyopathy (HCC),Coronary artery disease involving [place] coronary artery of [place] heart without angina pectoris,HTN, goal below 140/90 [...] for Cough. 30 Capsule 1 04/29/2023 Active Clotrimazole 1 % External Cream (Lotrimin)Indication s:Candidal intertrigo APPLY TO THE AFFECTED AREA(S) TWICE DAILY FOR FOURTEEN DAYS 60 g 2 05/06/2023 Active Ondansetron HCl 4 MG Oral Tablet Take 1 Tablet by mouth every 6 hours as needed for Nausea. 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, without long-term current use of insulin ([facility]),Type 2 diabetes mellitus with hemoglobin A1c goal of less than 8.0% ([facility]) TEST UP TO FOUR TIMES [...] for Cough. 120 mL 1 06/16/2023 Active Trulicity 0.75 MG/0.5ML Subcutaneous Solution Pen-injector (Dulaglutide) Inject 0.75 mg under the skin once a week. 2 mL 3 06/27/2023 Active Myrbetriq 25 MG Oral Tablet Extended Release 24 Hour (Mirabegron ER) Take 1 Tablet by mouth in the morning. 90 Tablet 3 07/08/2023 Active OneTouch Delica Plus [id number] :Type 2 diabetes mellitus with hemoglobin A1c goal of less than 8.0% ([facility]) Test up to two times daily or as directed by [facility] pharmacist 200 Each 3 07/11/2023 Active Torsemide 20 MG Oral Tablet (Demadex)Indications :Heart failure, systolic, due to idiopathic cardiomyopathy ([facility]) Take 60 mg by mouth [...] With food. 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] Telephone Encounter - Beth Bailon RN - 10/11/2023 2:24 PM EST Communication Note Name: Regla Stiles Situation: Pt on for follow up call to check fluid status. Background: 10/06 231 lbs 10/07 232 lbs 10/08 236.8 lbs 10/09 236 lbs 10/10 235.8 lbs 10/11 235.5 lbs Patient does not have a [facility] scale, daughter weighs her daily on home scale. Daughter stated her mother normally takes Torsemide 60 mg every am and 40 mg every pm. Also taking Spironolactone 12.5 mg daily. DTP started 10/10 which is an additional 20 mg torsemide x 3 days. Assessment: Spoke with daughter Josselyn. Reports that weight only came down slighly to 235.5 lbs from 235.8 lbs. No increased sob from baseline. No increase in urination noted with the extra torsemide, but no decrease. Daughter wondering it pt may have just gained flesh wt. Reports that she has been eating more cakes, cookies. Prefers sweets rather than other foods such as fruit/vegetables. Blood sugars have been okay-running in 100s. Wearing her oxygen at night as ordered. Sats staying above 90% during the day and doesn't use it. Had additional Torsemide 20 mg today and will take tomorrow also. On for follow up call tomorrow also. Recommendation/ Plan: Continue daily wts Low sodium diet Limit sweets Fluids <1.5 L per day Compression pumps to legs as ordered DTP day 10/25 tomorrow On for follow up call to check fluid status. documented in this encounter Plan of Treatment Upcoming Encounters Date Type Department Care Team (Late st Contact Info) Description 10/12/2023 1:00 PM EST Scheduled Telephone [facility], [facility] [place] [address] [facility] [place] [address] [facility], Nurse [facility] 132 [facility] [place] [address] 10/22/2023 2:00 PM EST Office Visit Cardiology, [facility] [address] [facility] [place] [address] Mariano Patel MD [address] [place] [address] 10/23/2023 5:30 PM EST Home Visit [facility], [facility] [place] [address] [facility] [place] [address] Destiny Schultz RN 132 [facility] [place] [address] 12/03/2023 3:00 PM EDT Office Visit Dermatology [address] [place] [address] Sheryl Pena PA-C [address] [place] [address] [place] [address] 12/08/2023 1:00 PM EDT Office Visit Ophthalmology, [facility] 132 [facility] [place] [address] Romel Mcclelland T, DO [address] [place] [address] 01/06/2024 1:30 PM EDT Cardiac Studies Cardiology [address] [place] [address] [facility] [address] [facility] [place] [address] 03/30/2024 3:40 PM EDT Office Visit Family Medicine [address] [place] [phone] Verónica Benavides MD [address] [place] [address] [place] [address] 04/21/2024 10:30 AM EDT Telemedicine Urology, [facility] [address] 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
--- OUTSIDE RECORDS SUMMARY | 2023-12-10 00:35 | External Medical Summary | Summary of Care ---
Author Name Unknown Organization [facility] Address [address] [place] [address] Phone [phone] Care Team Providers Care Director Institution Name Role Phone Verónica Benavides MD Primary Care Provide r Reason for Visit * Reason Onset Date Comments [facility]: Maintenance 10/12/2023 Encounter Details Date Type Department Care Team ([facility] st Contact Info) Description 10/12/2023 1:00 PM EST Scheduled Telephone [facility], [facility] [address] [place] [address] [facility], Nurse [facility] [address] [place] [address] Allergies Active Allergy Reactions Criticality Noted Date Comments Adhesive Tape Medium 01/30/2022 Ibuprofen Hives 01/13/2012 Aspirin Hives,Rash 09/15/2000 Sulfamethoxazole-Trimeth oprim Nausea/vomiting,Othe r (Please comment) 10/27/2020 Dizziness Ciprofloxacin Hcl 06/16/2019 Hoarse, dizzy,disoriented Morphine 09/21/2021 Blacked out Penicillins Hives,Rash 09/15/2000 Prednisone 12/30/2017 Weakness/memory changes/blurred vision documented as of this encounter (statuses as of 10/12/2023) Medications Medication Sig Dispensed Refills Start Date [...] in the morning. 0 08/08/2021 Active Nystatin [id number] UNIT/GM External Powder (Nystop)Indications: Lydia rash of [...] disease, without long-term current use of insulin ([facility]),Type 2 diabetes mellitus with hemoglobin A1c goal of less than 8.0% ([facility]) TEST UP TO FOUR TIMES [...] Tablet 3 07/08/2023 Active OneTouch Delica Plus [id number] :Type 2 diabetes mellitus with hemoglobin A1c goal of less than 8.0% ([facility]) Test up to two times daily or as directed by [facility] pharmacist 200 Each 3 07/11/2023 Active Torsemide 20 MG Oral Tablet (Demadex)Indications :Heart failure, systolic, due to idiopathic cardiomyopathy ([facility]) Take 60 mg by mouth [...] as of this encounter (statuses as of 10/12/2023) Active Problems Problem Noted Date Diagnosed Date [...] as of this encounter (statuses as of 10/12/2023) Resolved Problems Problem Noted Date Diagnosed Date [...] as of this encounter (statuses as of 10/12/2023) Immunizations Name Administration Dates Next Due COVID-19 mRNA, LNP-s, No Pre serve, 2-Dose Series ([employer]) 08/29/2021,10/23/2020,10/02/2020 COVID-19, MRNA-LNP, 23-24, P F, 30 [...] Telephone Encounter - Carol Portillo RN - 10/12/2023 1:38 PM EST [facility] Telephonic Nurse Follow-Up Call [facility] Subprogram: Primary Care at Home Follow Up Call Type: Weekend Call Acute issue requiring follow-up call: Other: follow up on weight gain, extra 20 mg of torsemide with afternoon dose x 3 days (10/10,10/11,10/12) Objective: 09/10/2023 1:31 PM 07/29/2023 2:56 PM 06/26/2023 3:50 PM 06/16/2023 3:59 PM 06/05/2023 1:25 PM VITALS ACROSS ENCOUNTERS BP 104/76 108/68 122/76 102/72 Pulse 72 72 60 78 Weight 106.1 kg 106.1 kg 108.9 kg BMI 44.21 kg/m2 44.21 kg/m2 45.35 kg/m2 Lab Results Component Value Date BLOOD, URINE - [facility] Small (A) 09/01/2023 PROTEIN, URINE - [facility] Trace (A) 09/01/2023 ESTERASE, URINE - [facility] Large (A) 09/01/2023 WBC CLUMPS, URINE -[facility] Present (A) 09/01/2023 WBC, URINE - [facility] 50+ (A) 09/01/2023 NITRITE, URINE - [facility] Negative 09/01/2023 QUANT URINE CULTURE GROWTH >100,000 colonies/mL Klebsiella pneumoniae (A) 09/01/2023 QUANT URINE CULTURE GROWTH (A) 09/01/2023 >100,000 colonies/mL - second type Klebsiella pneumoniae No results found for: "WBC AUTO - [facility]", "HGB - [facility]", "PLATELET AUTO - [facility]" No results found for: "SODIUM - [facility]", "POTASSIUM - [facility]", "MAGNESIUM - [facility]", "CO2 - [facility]", "CREATININE - [facility]", "ESTIMATED GLOMERULAR FILTRATION RATE - [facility]", "ALBUMIN- [facility]", "AST - [facility]", "ALT - [facility]", "ALKALINE PHOSPHATASE - [facility]" No results found for: "PRO BNP", "LEFT VENTRICULAR EJECTION FRACTION" Remote Patient Monitoring: NONE Oxygen Needs: NO supplemental oxygen needs identified DME Needs: NO DME needs identified Medications: New medication(s) added: take an extra Torsemide with afternoon dose for three days , 10/12 is the last day Subjective: Condition Status: Improvement in symptoms but not at baseline Current Concerns: Spoke with Regla, reports feeling okay, denies any SOB, reports her weight came down to 234.7 lbs. Denies any SOB at rest but has with exertion, wears O2 at night. Last day of DTP today with extra Torsemide in PM dose. Is urinating with last BM today, pulse ox remains above 90%. Has a good appetite,like to snack on sweets. Background: 10/06 231 lbs 10/07 232 lbs 10/08 236.8 lbs 10/09 236 lbs 10/10 235.8 lbs 10/11 235.5 lbs 10/12 234.7 lbs Disposition: RNCM visit scheduled Future Visits Scheduled: Future Appointments-next 60 days Date/Time Provider Specialty Dept Phone 10/22/2023 2:00 PM (Arrive by 1:45 PM) Mariano Patel MD Cardiology [phone] 10/23/2023 5:30 PM Destiny Schultz RN [facility] [phone] 12/03/2023 3:00 PM (Arrive by 2:45 PM) Sheryl Pena PA-C Dermatology [phone] 12/08/2023 1:00 PM Romel Mcclelland, Ophthalmology [phone] 01/06/2024 1:30 PM (Arrive by 1:15 PM) lAeta Abel [facility] Cardiology [phone] 03/30/2024 3:40 PM (Arrive by 3:25 PM) Verónica Benavides MD Family Medicine [phone] 04/21/2024 10:30 AM Chandler Pena MD Urology [phone] Carol Portillo, POPPY documented in this encounter Plan of Treatment Upcoming Encounters Date Type Department Care Team (Late st Contact Info) Description 10/22/2023 2:00 PM EST Office Visit Cardiology, [facility] 132 [facility] [place] [address] Mariano Patel MD [address] [place] [address] 10/23/2023 5:30 PM EST Home Visit [facility] [place], [facility] [address] [facility] [place] [address] Destiny Schultz RN 132 [facility] [place] [address] 12/03/2023 3:00 PM EDT Office Visit Dermatology [address] [place] [address] Sheryl Pena PA-C [address] [place] [address] [place] [address] 12/08/2023 1:00 PM EDT Office Visit Ophthalmology, [facility] 132 [facility] [place] [address] Romel Mcclelland T, DO [address] [place] [address] 01/06/2024 1:30 PM EDT Cardiac Studies Cardiology [address] [place] [address] [facility] 132 [facility] [place] [address] 03/30/2024 3:40 PM EDT Office Visit Family Medicine [address] [place] [phone] Verónica Benavides MD [address] [place] [address] [place] [address] 04/21/2024 10:30 AM EDT Telemedicine Urology, [facility] [address] [facility] [place] [address] Chandler Pena MD [address] [place] [...] Additional history exists CKD PHOS USE SMARTSET 14890 02/08/202401/23, 08/07/2021, 11/09/2019, Additional history exists TSH 03/25/2024 03/25/2023, 07/0 10/2022, 10/28/2022, Additional history exists CKD HGB USE SMARTSET 38758 05/26/202405/26, 05/26/2023, 04/07/2023, Additional history exists Pneumococcal [...] Documents on File Type Date Recorded Patient [employer] Expl anation Advance Directives and Living Will 08/10/2021 ADVANCE DIRECTIVE / LIVING WILL LIVING WILL Healthcare Agents on File Name Relationship [facility] Josselyn Judd Adult Child Health Care Power of Attor nathalie Care Teams Director Institution Relationship Specialty Start Date End Date Verónica Benavides MD [address] [place] [address] [place] [id number] PCP - General Family Medicine 09/16/14 documented as of this encounter
--- OUTSIDE RECORDS SUMMARY | 2023-12-10 00:35 | External Medical Summary | Summary of Care ---
Author Name Unknown Organization [facility] Address [address] [place] [address] Phone [phone] Care Team Providers Care Telecommunication Equipment Repairer Name Role Phone Verónica Benavides MD Primary Care Provide r Reason for Visit * Reason Onset Date Comments [facility]: Acute 10/10/2023 Encounter Details Date Type Department Care Team ([facility] st Contact Info) Description 10/10/2023 Telephone [facility], [facility] [address] [place] [address] [facility], Nurse [facility] [address] [place] [address] [facility]: Acute Allergies Active Allergy Reactions Criticality Noted Date Comments Adhesive Tape Medium 01/30/2022 Ibuprofen Hives 01/13/2012 Aspirin Hives,Rash 09/15/2000 Sulfamethoxazole-Trimeth oprim Nausea/vomiting,Othe r (Please comment) 10/27/2020 Dizziness Ciprofloxacin Hcl 06/16/2019 Hoarse, dizzy,disoriented Morphine 09/21/2021 Blacked out Penicillins Hives,Rash 09/15/2000 Prednisone 12/30/2017 Weakness/memory changes/blurred vision documented as of this encounter (statuses as of 10/10/2023) Medications Medication Sig Dispensed Refills Start Date [...] in the morning. 0 08/08/2021 Active Nystatin 906002 UNIT/GM External Powder (Nystop)Indications: Lydia rash of [...] without long-term current use of insulin ([facility]),Type 2 diabetes mellitus with hemoglobin A1c goal of less than 8.0% ([facility]) TEST UP TO FOUR TIMES DAILY 400 [...] Tablet 3 07/08/2023 Active OneTouch Delica Plus [id number] :Type 2 diabetes mellitus with hemoglobin A1c goal of less than 8.0% ([facility]) Test up to two times daily or as directed by [facility] pharmacist 200 Each 3 07/11/2023 Active Torsemide 20 MG Oral Tablet (Demadex)Indications :Heart failure, systolic, due to idiopathic cardiomyopathy ([facility]) Take 60 mg by mouth in the [...] as of this encounter (statuses as of 10/10/2023) Active Problems Problem Noted Date Diagnosed Date [...] Morbid obesity with BMI of 45.0-49.9, adult 1112/2020 ESBL E. 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 Last Assessment & Plan: [facility] Triage Call: Reviewed last C&S - treated [...] as of this encounter (statuses as of 10/10/2023) Resolved Problems Problem Noted Date Diagnosed Date [...] as of this encounter (statuses as of 10/10/2023) Immunizations Name Administration Dates Next Due COVID-19 mRNA, LNP-s, No Pre serve, 2-Dose Series ([employer]) 08/29/2021,10/23/2020,10/02/2020 COVID-19, MRNA-LNP, 23-24, P F, 30 MCG/0.3 mL, 12 YRS AND ABOVE, IM (PFIZER-Comirnat) 08/04/2023 Covid-19, Mrna, Lnp-s, Pf, B ivalent, [...] encounter Miscellaneous Notes * Telephone Encounter - Briseyda Rich RN - 10/10/2023 1:55 PM EST Daughter aware her mother is to take an extra 20 mg Torsemide in the afternoon for 3 days. Follow up calls scheduled. Briseyda Rich RN Ostomy Rn [facility] * Telephone Encounter - Mak Chaudhari DO - 10/10/2023 1:40 PM EST 3 days please Mak Chaudhari DO * Telephone Encounter - Briseyda Rich RN - 10/10/2023 1:05 PM EST Called daughter / Josselyn back , aware to give her mother an extra 20 mg of Torsemide today for herweight gain. Daughter wants to know should her give her mother the extra 20 mg of Torsemide for 3 days like she has done in the past? Or just today? Informed daughter order for Torsemide is for 60 mg in the morning, 40 mg in the afternoon, additional 20 mg in the afternoon only if directed by health care provider for weight gain of 3 lbs or more. I will check with provider to confirm how many days and call her back. Briseyda Rich RN Ostomy Rn [facility] * Telephone Encounter - Mak Chaudhari DO - 10/10/2023 12:04 PM EST Images from the original note were not included. [facility] Prabhakar LennyJimi Subprogram: Primary Care at Home Recommendations: I would start the DTP as outlined in her chart - unclear if this advice was given: I think this demonstrates work still needed on education and teach back surrounding self-mgt planning - FYI care team Orders: No orders of the defined types were placed in this encounter. To Do: Please see below for follow up items to be completed and correspondence: FYI to Regla's Care Team garbage truck helper Pool please work on the following: contact the caller with advice and orders as above Mak Chaudhari DO [facility] - [facility] 10/10/2023 Scheduled appointments in the next 60 days: Future Appointments-next 60 days Date/Time Provider Specialty Dept Phone 10/22/2023 2:00 PM (Arrive by 1:45 PM) Mariano Patel MD Cardiology [phone] 10/23/2023 5:30 PM Destiny Schultz RN [facility] [phone] 12/03/2023 3:00 PM (Arrive by 2:45 PM) Sheryl Pena PA-C Dermatology [phone] 12/08/2023 1:00 PM Romel Mcclelland DO Ophthalmology [phone] 01/06/2024 1:30 PM (Arrive by 1:15 PM) [facility] Cardiology [phone] 03/30/2024 3:40 PM (Arrive by 3:25 PM) Verónica Benavides MD Family Medicine [phone] 04/21/2024 10:30 AM Chandler Pena MD Urology [phone] * Telephone Encounter - Briseyda Rich RN - 10/10/2023 11:29 AM EST [facility] garbage truck helper Acute Call Date: 10/10/2023 Time: 11:29 AM Name: eRgla Stiles : 1935 Caller: Josselyn Relationship to : daughter HPI: Regla Stiles is a 88 year old female whose daughter / Josselyn is calling [email or web address] to report her mother "has problems with fluid" and gained weight the past 3 days. 10/06 she was 231 lbs 10/07 she was 232 lbs 10/08 she was 236.8 lbs 10/09 she was 236 lbs Today 235.8 lbs Patient does not have a [facility] scale, daughter weighs her daily on home scale. Daughter stated her mother normally takes Torsemide 60 mg every am and 40 mg every pm. Also taking Spironolactone 12.5 mg daily. Daughter stated when her mother has a weight gain she usually gives her an extra 20 mg of Torsemidein the evening for 3 days, but always calls to check with [facility] before doing that. Daughter stated her mothers lower legs are swollen , but she did not elevate them or have compression stockings on 2 days ago. Legs are elevated with compression stockings on today. Patient is SOB but no worse then baseline,ox sat was 92 % this morning and she has oxygen on at 2 liters during the night. Patients has regular daily BM's,no constipation. Nursing Assessment: Patient's chief complaint for this call: Other, describe " weight gain Pain Denies pain Baseline Assessment Able to performing ADLs at baseline (walking, daily tasks, etc.): Unknown Chief Complaint is related to a chronic condition: Unknown Patient prescribed oxygen? Yes, 2L/min Patient has been ordered DME equipment (assistive devices, respiratory equipment, etc.): Yes Describe DME devices: oxygen Patient is using DME device as directed: Yes Medication Reconciliation: (See medication list) Received flu shot this season: No Taking medication as ordered: Yes Medications ordered/taking to treat reason for call: No Heart failure symptoms: Unknown COPD exacerbation symptoms: No Reinforcement Education: Continue medications Elevate legs when sitting Where compression stockings Monitor daily weights and oxygen sat Treatment/Plan: (need to report) Level of call: Acute Appointment scheduled for same day: No Await [facility] recommendations Follow up weekend calls Briseyda Rich RN Ostomy Rn [facility] documented in this encounter Plan of Treatment Upcoming Encounters Date Type Department Care Team (Late st Contact Info) Description 10/11/2023 1:00 PM EST Scheduled Telephone [facility], [facility] 132 [facility] [place] [address] [facility], Nurse [address] [place] [address] 10/12/2023 1:00 PM EST Scheduled Telephone [facility], [facility] [address] [facility] [place] [address] [facility], Nurse [address] [place] [address] 10/22/2023 2:00 PM EST Office Visit Cardiology, [facility] [address] [facility] [place] [address] Mariano Patel MD [address], [place] [id number] 10/23/2023 5:30 PM EST Home Visit [facility], [address] [place] [address] Destiny Schultz RN 132 [facility] [place] [address] 12/03/2023 3:00 PM EDT Office Visit Dermatology [address] [place] [address] Sheryl Pena PA-C [address] [place] [address] [place] [address] 12/08/2023 1:00 PM EDT Office Visit Ophthalmology, [facility] 132 [facility] [place] [address] Romel Mcclelland T, DO [address] [place] [address] 01/06/2024 1:30 PM EDT Cardiac Studies Cardiology [address] [place] [address] [facility] [address] [facility] [address] 03/30/2024 3:40 PM EDT Office Visit Family Medicine [address] [place] [phone] Verónica Benavides MD [address] [place] [address] [place] [address] 04/21/2024 10:30 AM EDT Telemedicine Urology, [facility] 132 [facility] [place] [address] Chandler Pena MD 27 [facility] [address] [place] [address] Health Maintenance Due Date Last Done Comments [...] Additional history exists CKD PHOS USE SMARTSET 23871 02/08/202401/23, 08/07/2021, 11/09/2019, Additional history exists TSH 03/25/2024 03/25/2023, 07/0 10/2022, 10/28/2022, Additional history exists CKD HGB USE SMARTSET 02307 05/26/202405/26, 05/26/2023, 04/07/2023, Additional history exists Pneumococcal [...] Documents on File Type Date Recorded Patient Internet Merchant Expl anation Advance Directives and Living Will 08/10/2021 ADVANCE DIRECTIVE / LIVING WILL LIVING WILL Healthcare Agents on File Name Relationship Healthcare Agent [facility] Communication Josselyn [facility] Child Health Care Power of Attor nathalie Care Teams Telecommunication Equipment Repairer Relationship Specialty Start Date End Date Verónica Benavides MD [address] [place] [address] [place] [address] PCP - General Family Medicine 09/16/14 documented as of this encounter
--- OUTSIDE RECORDS SUMMARY | 2023-12-10 00:35 | External Medical Summary | Summary of Care ---
Author Name Unknown Organization [facility] Address [address] [place] [address] Phone [phone] Care Team Providers Care Area Counselor Name Role Phone Verónica Benavides MD Primary Care Provide r Encounter Details Date Type Department Care Team (Late st Contact Info) Description 10/21/2023 Documentation [facility], Cardiac Recovery Suite, [facility] [address] [place] [address] Hafsa Mcqueen, RN Allergies Active Allergy Reactions Criticality Noted Date [...] in the morning. 0 08/08/2021 Active Nystatin 027039 UNIT/GM External Powder (Nystop)Indications: Lydia rash of [...] XL)Indications:Non-i schemic cardiomyopathy (HCC),Coronary artery disease involving [place] coronary artery of [place] heart without angina pectoris,HTN, goal below 140/90 [...] without long-term current use of insulin ([facility]),Type 2 diabetes mellitus with hemoglobin A1c goal of less than 8.0% ([facility]) TEST UP TO FOUR TIMES DAILY 400 [...] Tablet 3 07/08/2023 Active OneTouch Delica Plus [id number] :Type 2 diabetes mellitus with hemoglobin A1c goal of less than 8.0% ([facility]) Test up to two times daily or as directed by [facility] pharmacist 200 Each 3 07/11/2023 Active Torsemide 20 MG Oral Tablet (Demadex)Indications :Heart failure, systolic, due to idiopathic cardiomyopathy ([facility]) Take 60 mg by mouth in the [...] a week. 2 mL 3 10/15/2023 Active documented as of this encounter (statuses [...] 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 Last Assessment & Plan: [facility] Triage Call: Reviewed last C&S - [...] Continue synthroid Coronary artery disease invo lving [place] coronary artery of [place] heart without angina pectoris 07/03/2012 Overview: 60% [...] mRNA, LNP-s, No Pre serve, 2-Dose Series ([employer]) 08/29/2021,10/23/2020,10/02/2020 COVID-19, MRNA-LNP, 23-24, P F, 30 MCG/0.3 mL, 12 YRS AND ABOVE, IM ([facility]) 08/04/2023 Covid-19, Mrna, Lnp-s, Pf, B [...] on file documented as of this encounter Progress Notes * Hafsa Mcqueen, RN - 10/21/2023 2:29 PM EST Images from the original note were not included. 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, BIV pacemaker, lymphedema, DM2, LBBB, BMI - 44 ALBERTO MillerN Interventional Valve Nurse Navigator documented in this encounter Plan of Treatment Upcoming Encounters Date Type Department Care Team (Late st Contact Info) Description 10/22/2023 2:00 PM EST Office Visit Cardiology, [facility] 132 [facility] [place] [address] Mariano Patel MD [address], [place] [phone] 10/23/2023 5:30 PM EST Home Visit [facility] 132 [facility] [place] [address] Destiny Schultz RN [address] [place] [address] 12/03/2023 3:00 PM EDT Office Visit Dermatology [address] [place] [address] Sheryl Pena PA-C [address] [place] [address] [place] [address] 12/08/2023 1:00 PM EDT Office Visit Ophthalmology, [facility] [address] Romel Mcclelland, DO [address] [place] [address] 01/06/2024 1:30 PM EDT Cardiac Studies Cardiology [address] [place] [address] Page [facility] [address] [place] [address] 03/30/2024 3:40 PM EDT Office Visit Family Medicine [address] [place] [phone] Verónica Benavides MD [address] [place] [address] [place] [address] 04/21/2024 10:30 AM EDT Telemedicine Urology, [facility] 132 [facility] [place] [address] Chandler Pena MD 27 [facility] 270 [place] [phone] Health Maintenance Due Date Last Done Comments [...] Additional history exists CKD PHOS USE SMARTSET 72045 02/08/2024 06/1 01/2023, 08/07/2021, 11/09/2019, Additional history exists TSH 03/25/2024 03/25/2023, 07/0 10/2022, 10/28/2022, Additional history exists CKD HGB USE SMARTSET 43154 05/26/202405/26, 05/26/2023, 04/07/2023, Additional history exists Pneumococcal [...] Documents on File Type Date Recorded Patient Barrel Reamer Expl anation Advance Directives and Living Will 08/10/2021 ADVANCE DIRECTIVE / LIVING WILL LIVING WILL Healthcare Agents on File Name Relationship Healthcare Agent [facility] p Communication Josselyn Judd Adult Child Health Care Power of Attor nathalie Care Teams Area Counselor Relationship Specialty Start Date End Date Verónica Benavides MD [address] [place] [address] [place] [address] PCP - General Family Medicine 09/16/14 documented as of this encounter
--- OUTSIDE RECORDS SUMMARY | 2023-12-10 00:36 | External Medical Summary | Summary of Care ---
Author Name Unknown Organization [facility] Address [address] [place] [address] Phone [phone] Care Team Providers Care Director Of Psychology Name Role Phone Verónica Benavides MD Primary Care Provide r Reason for Visit * Reason Onset Date Comments [facility]: Acute 10/10/2023 Encounter Details Date Type Department Care Team ([facility] st Contact Info) Description 10/10/2023 Telephone [facility], [facility] [address] [place] [address] [facility], Nurse [facility] [address] [place] [address] [facility]: Acute Allergies Active Allergy [...] in the morning. 0 08/08/2021 Active Nystatin 318037 UNIT/GM External Powder (Nystop)Indications: Lydia rash of [...] XL)Indications:Non-i schemic cardiomyopathy (HCC),Coronary artery disease involving [place] coronary artery of [place] heart without angina pectoris,HTN, goal below 140/90 [...] disease, without long-term current use of insulin ([facility]),Type 2 diabetes mellitus with hemoglobin A1c goal of less than 8.0% ([facility]) TEST UP TO FOUR TIMES [...] Tablet 3 07/08/2023 Active OneTouch Delica Plus [id number] :Type 2 diabetes mellitus with hemoglobin A1c goal of less than 8.0% ([facility]) Test up to two times daily or as directed by [facility] pharmacist 200 Each 3 07/11/2023 Active Torsemide 20 MG Oral Tablet (Demadex)Indications :Heart failure, systolic, due to idiopathic cardiomyopathy ([facility]) Take 60 mg by mouth [...] 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 Last Assessment & Plan: [facility] Triage Call: Reviewed last C&S - [...] Continue synthroid Coronary artery disease invo lving [place] coronary artery of [place] heart without angina pectoris 07/03/2012 Overview: 60% [...] mRNA, LNP-s, No Pre serve, 2-Dose Series ([employer]) 08/29/2021,10/23/2020,10/02/2020 COVID-19, MRNA-LNP, 23-24, P F, 30 [...] encounter Miscellaneous Notes * Telephone Encounter - Mak Chaudhari DO [...] days and call her back. Briseyda Rich methodologistMethods Specialist [facility] * Telephone Encounter - Mak Chaudhari DO - 10/10/2023 12:04 PM EST Images from the original note were not included. [facility] Subprogram: Primary Care at Home Recommendations: I [...] and correspondence: FYI to Regla's Care Team hogshead stock clerk Pool please work on the following: contact the caller with advice and orders as above Mak Chaudhari DO [facility] - [facility] 10/10/2023 Scheduled appointments in the next 60 days: Future Appointments-next 60 days Date/Time Provider Specialty Dept Phone 10/22/2023 2:00 PM (Arrive by 1:45 PM) Mariano Patel MD Cardiology [phone] 10/23/2023 5:30 PM Destiny Schultz RN [facility] [phone] 12/03/2023 3:00 PM (Arrive by 2:45 PM) Sheryl Pena PA-C Dermatology [phone] 12/08/2023 1:00 PM Romel Mcclelland DO Ophthalmology [phone] 01/06/2024 1:30 PM (Arrive by 1:15 PM) [facility] Cardiology [phone] 03/30/2024 3:40 PM (Arrive by 3:25 PM) Verónica Benavides MD Family Medicine [phone] 04/21/2024 10:30 AM Chandler Pena MD Urology [phone] * Telephone Encounter - Briseyda Rich RN - 10/10/2023 11:29 AM EST [facility] hogshead stock clerk Acute Call Date: 10/10/2023 Time: 11:29 AM Name: Regla Stiles : 1935 Caller: Josselyn Relationship to : daughter HPI: Regla Stiles is a 88 year old female whose daughter / Josselyn is calling [facility] to report her mother "has problems with fluid" and gained weight the past 3 days. 10/06 she was 231 lbs 10/07 she was 232 lbs 2 she was 236.8 lbs 2 she was 236 lbs Today 235.8 lbs [...] days, but always calls to check with [facility] before doing that. Daughter stated her mothers [...] Appointment scheduled for same day: No Await [facility] recommendations Follow up weekend calls Briseyda Rich RN Methods Specialist [facility] documented in this encounter Plan of Treatment Upcoming Encounters Date Type Department Care Team (Late st Contact Info) Description 10/22/2023 2:00 PM EST Office Visit Cardiology, [facility] [address] [place] [address] Mariano Patel MD [address] [place] [address] 10/23/2023 5:30 PM EST Home Visit [facility], [facility] 132 [facility] [place] [address] Destiny Schultz, RN 132 [facility] [place] [address] 12/03/2023 3:00 PM EDT Office Visit Dermatology [address] [place] [address] Sheryl Pena PA-C [address] [place] [address] [place] [address] 12/08/2023 1:00 PM EDT Office Visit Ophthalmology, [address] [place] [address] Romel Mcclelland, DO [address] [place] [address] 01/06/2024 1:30 PM EDT Cardiac Studies Cardiology [address] [place] [address] Aleta Abel [facility] 132 [facility] [place] [address] 03/30/2024 3:40 PM EDT Office Visit Family Medicine [address] [place] [phone] Verónica Benavides MD [address] [place] [address] [place] [address] 04/21/2024 10:30 AM EDT Telemedicine Urology, [facility] 132 [facility] [place] [address] Chandler Pena MD [address] [place] [address] [place] [phone] Health Maintenance Due Date Last Done Comments [...] Additional history exists CKD PHOS USE SMARTSET 63716 02/08/202401/23, 08/07/2021, 11/09/2019, Additional history exists TSH 03/25/2024 03/25/2023, 07/0 10/2022, 10/28/2022, Additional history exists CKD HGB USE SMARTSET 06095 05/26/202405/26, 05/26/2023, 04/07/2023, Additional history exists Pneumococcal [...] Documents on File Type Date Recorded Patient Gluer And Slicer Hand Expl anation Advance Directives and Living Will 08/10/2021 ADVANCE DIRECTIVE / LIVING WILL LIVING WILL Healthcare Agents on File Name Relationship [facility] Josselyn Judd [facility] Care Power of Attor nathalie Care Teams Director Of Psychology Relationship Specialty Start Date End Date Verónica Benavides MD [address] [place] [address] [place] [address] PCP - General Family Medicine 09/16/14 documented as of this encounter
--- OUTSIDE RECORDS SUMMARY | 2023-12-10 00:36 | External Medical Summary | Summary of Care ---
Author Name Unknown Organization [facility] Address [address] [place] [address] Phone [phone] Care Team Providers Care Log Pond Worker Name Role Phone Verónica Benavides MD Primary Care Provide r Reason for Visit * Reason Onset Date Comments [facility]: Acute 10/10/2023 Encounter Details Date Type Department Care Team ([facility] st Contact Info) Description 10/10/2023 Telephone [facility], [facility] [address] [place] [address] [facility], Nurse [facility] [address] [place] [address] [facility]: Acute Allergies Active Allergy [...] in the morning. 0 08/08/2021 Active Nystatin 517632 UNIT/GM External Powder (Nystop)Indications: Lydia rash of [...] XL)Indications:Non-i schemic cardiomyopathy (HCC),Coronary artery disease involving [place] [...] without long-term current use of insulin ([facility]),Type 2 diabetes mellitus with hemoglobin A1c goal of less than 8.0% ([facility]) TEST UP TO FOUR TIMES [...] Tablet 3 07/08/2023 Active OneTouch Delica Plus [id number] :Type 2 diabetes mellitus with hemoglobin A1c goal of less than 8.0% ([facility]) Test up to two times daily or as directed by [facility] pharmacist 200 Each 3 07/11/2023 Active Torsemide 20 MG Oral Tablet (Demadex)Indications :Heart failure, systolic, due to idiopathic cardiomyopathy ([facility]) Take 60 mg by mouth in [...] 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 Last Assessment & Plan: [facility] Triage Call: Reviewed last C&S - [...] mRNA, LNP-s, No Pre serve, 2-Dose Series ([employer]) 08/29/2021,10/23/2020,10/02/2020 COVID-19, MRNA-LNP, 23-24, P F, 30 [...] [facility] Prabhakar Reyna Subprogram: Primary Care at Home Recommendations: I [...] and correspondence: FYI to Regla's Care Team project geologist Pool please work on the following: contact the caller with advice and orders as above Mak Chaudhari DO Remote Medical Command - [facility] 10/10/2023 Scheduled appointments in the next 60 days: Future Appointments-next 60 days Date/Time Provider Specialty Dept Phone 10/22/2023 2:00 PM (Arrive by 1:45 PM) Mariano Patel MD Cardiology [phone] 10/23/2023 5:30 PM Destiny Schultz, POPPY [facility] [phone] 12/03/2023 3:00 PM (Arrive by 2:45 PM) Sheryl Pena PA-C Dermatology [phone] 12/08/2023 1:00 PM Romel Mcclelland DO Ophthalmology [phone] 01/06/2024 1:30 PM (Arrive by 1:15 PM) Aleta Abel [facility] Cardiology [phone] 03/30/2024 3:40 PM (Arrive by 3:25 PM) Verónica Benavides MD Family Medicine [phone] 04/21/2024 10:30 AM Chandler Pena MD Urology [phone] * Telephone Encounter - Briseyda Rich RN - 10/10/2023 11:29 AM EST [facility] project geologist Acute Call Date: 10/10/2023 Time: 11:29 AM Name: Regla Stiles : 1935 Caller: Josselyn Relationship to : daughter HPI: Regla Stiles is a 88 year old female whose daughter / Josselyn is calling [facility] to report her mother [...] days, but always calls to check with [facility] before doing that. Daughter stated her [...] Appointment scheduled for same day: No Await [facility] recommendations Follow up weekend calls Briseyda Rich etl managerStator Connector [facility] documented in this encounter Plan of Treatment Upcoming Encounters Date Type Department Care Team (Late st Contact Info) Description 10/22/2023 2:00 PM EST Office Visit Cardiology, [facility] 132 [facility] [place] [address] Mariano Patel MD [address] [place] [facility] [place] [address] 10/23/2023 5:30 PM EST Home Visit [facility] [address] [facility] [place] [address] Destiny Schultz, POPPY [facility] [address] 12/03/2023 3:00 PM EDT Office Visit Dermatology [address] [place] [address] Sheryl Pena PA-C [address] [place] [address] [place] [address] 12/08/2023 1:00 PM EDT Office Visit Ophthalmology, [facility] 132 [facility] [place] [address] Romel Mcclelland, DO [address] [place] [address] 01/06/2024 1:30 PM EDT Cardiac Studies Cardiology [address] [place] [address] Aleta Abel [facility] 132 [facility] [place] [address] 03/30/2024 3:40 PM EDT Office Visit Family Medicine [address] [place] [phone] Verónica Benavides MD [address] [place] [address] [place] [address] 04/21/2024 10:30 AM EDT Telemedicine Urology, [facility] 132 [facility] [place] [address] Chandler Pena MD [address] [place] [address] [place] [address] Health Maintenance Due Date Last Done Comments [...] Additional history exists CKD PHOS USE SMARTSET 86918 02/08/202401/23, 08/07/2021, 11/09/2019, Additional history exists TSH 03/25/2024 03/25/2023, 07/0 10/2022, 10/28/2022, Additional history exists CKD HGB USE SMARTSET 75694 05/26/202405/26, 05/26/2023, 04/07/2023, Additional history exists Pneumococcal [...] Documents on File Type Date Recorded 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
--- OUTSIDE RECORDS SUMMARY | 2023-12-10 00:36 | External Medical Summary | Summary of Care ---
Author Name Unknown Organization [facility] Address [address] [place] [address] Phone [phone] Care Team Providers Care Employee Wellness/Fitness Coordinator Name Role Phone Verónica Benavides MD Primary Care Provide r Reason for Visit * Reason Onset Date Comments [facility]: Acute 10/10/2023 Encounter Details Date Type Department Care Team ([facility] st Contact Info) Description 10/10/2023 Telephone [facility], [facility] [address] [place] [address] [facility], Nurse [facility] [address] [place] [address] [facility]: Acute Allergies Active Allergy [...] in the morning. 0 08/08/2021 Active Nystatin 095965 UNIT/GM External Powder (Nystop)Indications: Lydia rash of [...] XL)Indications:Non-i schemic cardiomyopathy (HCC),Coronary artery disease involving sun'aq coronary artery of sun'aq heart without angina pectoris,HTN, goal below 140/90 [...] long-term current use of insulin ([facility]),Type 2 diabetes mellitus with hemoglobin A1c goal of less than 8.0% ([facility]) TEST UP TO FOUR TIMES [...] Tablet 3 07/08/2023 Active OneTouch Delica Plus [id number] :Type 2 diabetes mellitus with hemoglobin A1c goal of less than 8.0% ([facility]) Test up to two times daily or as directed by [facility] pharmacist 200 Each 3 07/11/2023 Active Torsemide 20 MG Oral Tablet (Demadex)Indications :Heart failure, systolic, due to idiopathic cardiomyopathy ([facility]) Take 60 mg by mouth in [...] 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 Last Assessment & Plan: [facility] Triage Call: Reviewed last C&S [...] Continue synthroid Coronary artery disease invo lving sun'aq coronary artery of sun'aq heart without angina pectoris 07/03/2012 Overview: 60% [...] mRNA, LNP-s, No Pre serve, 2-Dose Series ([employer]) 08/29/2021,10/23/2020,10/02/2020 COVID-19, MRNA-LNP, 23-24, P F, 30 [...] and correspondence: FYI to Regla's Care Team car varnisher Pool please work on the following: contact the caller with advice and orders as above Mak Chaudhari DO Remote Medical Command - [facility] 10/10/2023 Scheduled appointments in the next 60 days: Future Appointments-next 60 days Date/Time Provider Specialty Dept Phone 10/22/2023 2:00 PM (Arrive by 1:45 PM) Mariano Patel MD Cardiology [phone] 10/23/2023 5:30 PM Destiny Schultz, POPPY [facility] [phone] 12/03/2023 3:00 PM (Arrive by 2:45 PM) Sheryl Pena PA-C Dermatology [phone] 12/08/2023 1:00 PM Romel Mcclelland DO Ophthalmology [phone] 01/06/2024 1:30 PM (Arrive by 1:15 PM) Aleta Abel [facility] Cardiology [phone] 03/30/2024 3:40 PM (Arrive by 3:25 PM) Verónica Benavides MD Family Medicine [phone] 04/21/2024 10:30 AM Chandler Pena MD Urology [phone] * Telephone Encounter - Briseyda Rich RN - 10/10/2023 11:29 AM EST [facility] car varnisher Acute Call Date: 10/10/2023 Time: 11:29 AM Name: Regla Stiles : 1935 Caller: Josselyn Relationship to : daughter HPI: Regla Stiles is a 88 year old female whose daughter / Josselyn is calling [facility] to report her mother [...] days, but always calls to check with [facility] before doing that. Daughter stated her [...] Appointment scheduled for same day: No Await [facility] recommendations Follow up weekend calls Briseyda Rich residential support workerDimension Specification Inspector [facility] documented in this encounter Plan of Treatment Upcoming Encounters Date Type Department Care Team (Late st Contact Info) Description 10/22/2023 2:00 PM EST Office Visit Cardiology, [facility] 132 [facility] [place] [address] Mariano Patel MD [address] [place] [facility] [place] [address] 10/23/2023 5:30 PM EST Home Visit [facility] 132 [facility] [place] [address] Destiny Schultz, POPPY [facility] [place] [address] 12/03/2023 3:00 PM EDT Office Visit Dermatology [address] [place] [address] Sheryl Pena PA-C [address] [place] [address] [place] [address] 12/08/2023 1:00 PM EDT Office Visit Ophthalmology, [facility] 132 [facility] [place] [address] Romel Mcclelland, DO [address] [place] [address] 01/06/2024 1:30 PM EDT Cardiac Studies Cardiology [address] [place] [address] Aleta Abel [facility] [address] [facility] [place] [address] 03/30/2024 3:40 PM EDT Office Visit Family Medicine [address] [place] [phone] Verónica Benavides MD [address] [place] [address] [place] [address] 04/21/2024 10:30 AM EDT Telemedicine Urology, [facility] [address] 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
--- OUTSIDE RECORDS SUMMARY | 2023-12-10 00:36 | External Medical Summary | Summary of Care ---
Author Name Unknown Organization [facility] Address [address] [place] [address] Phone [phone] Care Team Providers Care Soup Person Name Role Phone Verónica Benavides MD Primary Care Provide r Reason for Visit * Reason Onset Date Comments [facility]: Acute 10/10/2023 Encounter Details Date Type Department Care Team ([facility] st Contact Info) Description 10/10/2023 Telephone [facility], [facility] [address] [place] [address] [facility], Nurse [facility] [address] [place] [address] [facility]: Acute Allergies Active Allergy [...] in the morning. 0 08/08/2021 Active Nystatin 675982 UNIT/GM External Powder (Nystop)Indications: Lydia rash of [...] XL)Indications:Non-i schemic cardiomyopathy (HCC),Coronary artery disease involving sitka coronary artery of sitka heart without angina pectoris,HTN, goal below 140/90 [...] long-term current use of insulin ([facility]),Type 2 diabetes mellitus with hemoglobin A1c goal of less than 8.0% ([facility]) TEST UP TO FOUR TIMES DAILY [...] Tablet 3 07/08/2023 Active OneTouch Delica Plus [id number] :Type 2 diabetes mellitus with hemoglobin A1c goal of less than 8.0% ([facility]) Test up to two times daily or as directed by [facility] pharmacist 200 Each 3 07/11/2023 Active Torsemide 20 MG Oral Tablet (Demadex)Indications :Heart failure, systolic, due to idiopathic cardiomyopathy ([facility]) Take 60 mg by mouth in [...] 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 Briseyda Rich ordering machine operatorPantograph Transferrer [facility] * Telephone Encounter - Mak Chaudhari DO - 10/10/2023 12:04 PM EST Images from the original note were not included. [facility] Remote Medical Command QuickNote [facility] Subprogram: Primary Care at Home Recommendations: [...] and correspondence: FYI to Regla's Care Team golf course patroller Pool please work on the following: contact the caller with advice and orders as above Mak Chaudhari DO Remote Medical Command - [facility] 10/10/2023 Scheduled appointments in the next 60 days: Future Appointments-next 60 days Date/Time Provider Specialty Dept Phone 10/22/2023 2:00 PM (Arrive by 1:45 PM) Mariano Patel MD Cardiology [phone] 10/23/2023 5:30 PM Destiny Schultz RN [facility] [phone] 12/03/2023 3:00 PM (Arrive by 2:45 PM) Sheryl Pena PA-C Dermatology [phone] 12/08/2023 1:00 PM Romel Mcclelland DO Ophthalmology [phone] 01/06/2024 1:30 PM (Arrive by 1:15 PM) [facility] [phone] 03/30/2024 3:40 PM (Arrive by 3:25 PM) Verónica Benavides MD Family Medicine [phone] 04/21/2024 10:30 AM Chandler Pena MD Urology [phone] * Telephone Encounter - Briseyda Rich RN - 10/10/2023 11:29 AM EST [facility] golf course patroller Acute Call Date: 10/10/2023 Time: 11:29 AM Name: Regla Stiles : 1935 Caller: Josselyn Relationship to : daughter HPI: Regla Stiles is a 88 year old female whose daughter / Josselyn is calling [facility] to report her mother "has problems with fluid" and gained weight the past 3 days. 10/06 she was 231 lbs 2 she was 232 lbs 2 she was [...] days, but always calls to check with [facility] before doing that. Daughter stated her mothers [...] Appointment scheduled for same day: No Await [facility] recommendations Follow up weekend calls Briseyda Rich RN Pantograph Transferrer [facility] documented in this encounter Plan of Treatment Upcoming Encounters Date Type Department Care Team (Late st Contact Info) Description 10/22/2023 2:00 PM EST Office Visit Cardiology, [facility] [address] [place] [address] Mariano Patel MD [address] [place], [place] [phone] 10/23/2023 5:30 PM EST Home Visit [facility] [address] [place] [address] Destiny Schultz RN [address] [place] [address] 12/03/2023 3:00 PM EDT Office Visit Dermatology [address] [place] [address] Sheryl Pena PA-C [address] [place] [address] [place] [address] 12/08/2023 1:00 PM EDT Office Visit Ophthalmology, [facility] 132 [facility] [place] [address] Romel Mcclelland, DO [address] [facility] [place] [address] 01/06/2024 1:30 PM EDT Cardiac Studies Cardiology [address] [place] [address] Aleta Abel [address] [place] [address] 03/30/2024 3:40 PM EDT Office Visit Family Medicine [address] [place] [phone] Verónica Benavides MD [address] [place] [address] [place] [address] 04/21/2024 10:30 AM EDT Telemedicine Urology, [facility] 132 [facility] [place] [address] Chandler Pena MD 27 [facility] [address] [place] [address] Health Maintenance Due Date Last Done Comments [...] Additional history exists CKD PHOS USE SMARTSET 27242 02/08/202401/23, 08/07/2021, 11/09/2019, Additional history exists TSH 03/25/2024 03/25/2023, 07/0 10/2022, 10/28/2022, Additional history exists CKD HGB USE SMARTSET 97612 05/26/202405/26, 05/26/2023, 04/07/2023, Additional history exists Pneumococcal [...] Documents on File Type Date Recorded 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
--- OUTSIDE RECORDS SUMMARY | 2023-12-10 00:37 | External Medical Summary | Summary of Care ---
Author Name Unknown Organization [facility] Address [address] [place] [address] Phone [phone] Care Team Providers Care Raiser Helper Name Role Phone Verónica Benavides MD Primary Care Provide r Encounter Details Date Type Department Care Team (Late st Contact Info) Description 09/05/2023 Telephone Urology Jhon Zayas [address] [place] [address] [place] [address] Chandler Pena MD [address] [place] [address] [place] [id number] Allergies Active Allergy Reactions Criticality Noted Date Comments Adhesive Tape Medium 01/30/2022 Ibuprofen Hives 01/13/2012 Aspirin Hives,Rash 09/15/2000 Sulfamethoxazole-Trimeth oprim Nausea/vomiting,Othe r (Please comment) 10/27/2020 Dizziness Ciprofloxacin Hcl 06/16/2019 Hoarse, dizzy,disoriented Morphine 09/21/2021 Blacked out Penicillins Hives,Rash 09/15/2000 Prednisone 12/30/2017 Weakness/memory changes/blurred vision documented as of this encounter (statuses as of 09/09/2023) Medications Medication Sig Dispensed Refills Start Date [...] in the morning. 0 08/08/2021 Active Nystatin 783508 UNIT/GM External Powder (Nystop)Indications: Lydia rash of [...] XL)Indications:Non-i schemic cardiomyopathy (HCC),Coronary artery disease involving [place] coronary artery of [place] heart without angina pectoris,HTN, goal below 140/90 [...] long-term current use of insulin ([facility]),Type 2 diabetes mellitus with hemoglobin A1c goal of less than 8.0% ([facility]) TEST UP TO FOUR TIMES DAILY [...] Tablet 3 07/08/2023 Active OneTouch Delica Plus [id number] :Type 2 diabetes mellitus with hemoglobin A1c goal of less than 8.0% ([facility]) Test up to two times daily or as directed by [facility] pharmacist 200 Each 3 07/11/2023 Active Torsemide 20 MG Oral Tablet (Demadex)Indications :Heart failure, systolic, due to idiopathic cardiomyopathy ([facility]) Take 60 mg by mouth in [...] area nightly 30 g 5 07/14/2023 Active Nitrofurantoin Monohyd Macro 100 MG Oral Capsule (Macrobid) Take 1 Capsule by mouth in the morning and 1 Capsule before bedtime. With food.. 60 Capsule 2 07/22/2023 Active Omeprazole 20 MG Oral Capsule Delayed [...] OTHER MEDS 90 Tablet 3 08/11/2023 Active Cefdinir 300 MG Oral Capsule (Omnicef) Take 1 Capsule by mouth in the morning and 1 Capsule before bedtime. 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 Last Assessment & Plan: [facility] Triage Call: Reviewed last C&S [...] Continue synthroid Coronary artery disease invo lving [place] coronary artery of [place] heart without angina pectoris 07/03/2012 Overview: 60% [...] as of this encounter (statuses as of 09/09/2023) Resolved Problems Problem Noted Date Diagnosed Date [...] as of this encounter (statuses as of 09/09/2023) Immunizations Name Administration Dates Next Due COVID-19 mRNA, LNP-s, No Pre serve, 2-Dose Series ([employer]) 08/29/2021,10/23/2020,10/02/2020 COVID-19, MRNA-LNP, 23-24, P F, 30 MCG/0.3 mL, 12 YRS AND ABOVE, IM ([employer]) 08/04/2023 Covid-19, Mrna, Lnp-s, Pf, B ivalent, [...] Telephone Encounter - Chandler Pena MD - 09/09/2023 11:32 AM EST Addressed in telephone visit yesterday, thanks, continue current antibiotic. DYLAN Villarreal * Telephone Encounter - Paris Santos LPN - 09/09/2023 9:[address] Pena Results are completed, please review and advise. Thank you Sabra * Telephone Encounter - Svetlana Samuel LPN - 09/05/2023 4:42 PM EST Patients daughter aware and verbalized understanding. She will call if the patient has any reactions and stop the Cefdinir. * Telephone Encounter - Chandler Pena MD - 09/05/2023 4:18 PM EST Culture preliminarily positive. Allergies noted. Can use Cefdnir with benadryl, monitor for reaction or increase Macrobid to BID until results completed. Thx, HM documented in this encounter Plan of Treatment Upcoming Encounters Date Type Department Care Team (Late st Contact Info) Description 09/10/2023 2:00 PM EST [facility], [facility] [address] [facility] [place] [address] Destiny Schultz RN [facility] [address] 10/08/2023 1:30 PM EST Telemedicine Urology, [facility] [address] [place] [address] Chandler Pena MD 27 [facility] [address] [place] [address] 10/22/2023 2:00 PM EST Office Visit Cardiology, [facility] 132 [place] [address] Mariano Patel MD [address] [place] [address] 12/03/2023 3:00 PM EDT Office Visit Dermatology [address] [place] [address] Sheryl Pena PA-C [address] [place] [address] [place] [address] 12/08/2023 1:00 PM EDT Office Visit Ophthalmology, [facility] [place] [address] Romel Mcclelland T, DO [address] [place] [address] 01/06/2024 1:30 PM EDT Cardiac Studies Cardiology [address] [place] [address] [facility] 132 [facility] [place] [address] 03/30/2024 3:40 PM EDT Office Visit Family Medicine [address] [place] [address] Verónica Benavides MD [address] [place] [address] [place] [address] Health Maintenance Due Date Last Done Comments Zoster Vaccines (1 of 2) 1985 Hepatitis B (1 of 3 - Risk 3-dose series) 1995 DXA Scan 04/02/2020 04/02/2017, 12/24, 11/05/2007 Depression Screening 05/24/2020 05/24/2019 Diabetic Foot Exam 11/08/2020 11/09/2019, 0 09/01/2018, 08/28/2017, Additional history exists Influenza Vaccine (FLU shot) (#1) 2023 06/20/2022, 06/20/2022, 06/29/2021, Additional history exists HbA1c 08/13/2023 02/11/2023, 10/23, 01/11/2022, Additional history exists DTaP,Tdap,and Td Vaccines (2 - Td or Tdap) 11/16/2023 11/15/2013, 03/29/2008, 03/29/2008 Diabetic Eye Exam 12/22/2023 12/21/2022, , 02/13/2020, Additional history exists Albumin/Creatinine Ratio 02/08/2024 023, 01/18/2022, 12/23/2017, Additional history exists CKD PHOS USE SMARTSET 88050 02/08/202401/23, 08/07/2021, 11/09/2019, Additional history exists TSH 03/25/2024 03/25/2023, 07/0 10/2022, 10/28/2022, Additional history exists CKD HGB USE SMARTSET 89366 05/26/202405/26, 05/26/2023, 04/07/2023, Additional history exists Pneumococcal [...] Documents on File Type Date Recorded 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
--- OUTSIDE RECORDS SUMMARY | 2023-12-10 00:37 | External Medical Summary | Summary of Care ---
Author Name Unknown Organization [facility] Address [address] [place] [address] Phone [phone] Care Team Providers Care Barnworker Groom Name Role Phone Verónica Benavides MD Primary Care Provide r Reason for Visit * Reason Comments [facility]: Maintenance Encounter Details Date Type Department Care Team (Late st Contact Info) Description 09/10/2023 2:00 PM EST [facility], [facility] [address] [facility] [place] [address] Destiny Schultz, POPPY [address] [facility] [place] [address] Allergies Active Allergy Reactions Criticality Noted Date Comments Adhesive Tape Medium 01/30/2022 Ibuprofen Hives 01/13/2012 Aspirin Hives,Rash 09/15/2000 Sulfamethoxazole-Trimeth oprim Nausea/vomiting,Othe r (Please comment) 10/27/2020 Dizziness Ciprofloxacin Hcl 06/16/2019 Hoarse, dizzy,disoriented Morphine 09/21/2021 Blacked out Penicillins Hives,Rash 09/15/2000 Prednisone 12/30/2017 Weakness/memory changes/blurred vision documented as of this encounter (statuses as of 09/10/2023) Medications Medication Sig Dispensed Refills Start Date [...] in the morning. 0 08/08/2021 Active Nystatin [id number] UNIT/GM External Powder (Nystop)Indications: Lydia rash of [...] XL)Indications:Non-i schemic cardiomyopathy (HCC),Coronary artery disease involving [place] coronary artery of [place] heart without angina pectoris,HTN, goal below 140/90 [...] disease, without long-term current use of insulin ([facility]),Type 2 diabetes mellitus with hemoglobin A1c goal of less than 8.0% ([facility]) TEST UP TO FOUR TIMES DAILY [...] Tablet 3 07/08/2023 Active OneTouch Delica Plus [id number] :Type 2 diabetes mellitus with hemoglobin A1c goal of less than 8.0% ([facility]) Test up to two times daily or as directed by [facility] pharmacist 200 Each 3 07/11/2023 Active Torsemide 20 MG Oral Tablet (Demadex)Indications :Heart failure, systolic, due to idiopathic cardiomyopathy ([facility]) Take 60 mg by mouth in [...] as of this encounter (statuses as of 09/10/2023) Active Problems Problem Noted Date Diagnosed Date [...] 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 Last Assessment & Plan: Health system Triage Call: Reviewed last C&S - treated [...] Continue synthroid Coronary artery disease invo lving [place] coronary artery of [place] heart without angina pectoris 07/03/2012 Overview: 60% [...] as of this encounter (statuses as of 09/10/2023) Resolved Problems Problem Noted Date Diagnosed Date [...] as of this encounter (statuses as of 09/10/2023) Immunizations Name Administration Dates Next Due COVID-19 mRNA, LNP-s, No Pre serve, 2-Dose Series ([employer]) 08/29/2021,10/23/2020,10/02/2020 COVID-19, MRNA-LNP, 23-24, P F, 30 MCG/0.3 mL, 12 YRS AND ABOVE, IM ([employer]) 08/04/2023 Covid-19, Mrna, Lnp-s, Pf, B ivalent, [...] Sign Reading Time Taken Comments Blood Pressure 104/76 09/10/2023 1:31 PM EST Pulse 72 09/10/2023 1:31 PM EST Temperature 36.5 C (97.7 F) 09/10/2023 1:31 PM ES T Respiratory Rate 18 09/10/2023 1:31 PM EST Oxygen Saturation 90% 09/10/2023 1:31 PM EST Inhaled Oxygen Concentration - - Weight 106.1 kg (234 lb) 09/10/2023 1:31 PM EST Height - - Body Mass Index 44.21 02/26/2023 10:32 AM EDT documented in this encounter Progress Notes * Destiny Schultz RN - 09/10/2023 1:29 PM EST [facility] Visit Date: 09/10/2023 Time: 1:29 PM Name: Regla Stiles : 1935 Current Concerns: Patient seen for follow up- h/o falls/ UTI, CHF, CKD, DM2 Taking Cefdinir for UTI- LD tomorrow. Blood sugar 150 Weight 234- ranges 232-234lbs Reports feeling well- has her days that consist of weakness/ not wanting to get in the shower/ irritable. Caregiver and daughter present during visit. Has not showered to present today. VS wnl Lungs clear slightly diminished Sob with exertion Chronic BLE lymphedema- compression pumps daily if patient agreeable. Alternating legs. Voiding without difficulty- urine color improving. Denies symptoms Bowels wnl- per report Appetite good Taking fluids well- 4 bottles daily Problems/Symptoms: Review of Systems Constitutional: Negative. HENT: Negative. Respiratory: Positive for shortness of breath. Cardiovascular: Positive for leg swelling. Gastrointestinal: Negative. Genitourinary: Negative. Musculoskeletal: Positive for arthralgias and gait problem. Skin: Negative. Hematological: Negative. Psychiatric/Behavioral: Negative. Physical Exam: BP 104/76 (BP Site: Right Arm, BP Position: Sitting, BP Cuff Size: Regular) | Pulse 72 | Temp 36.5 C (97.7 F) (Tympanic) | Resp 18 | Wt 106.1 kg (234 lb) | SpO2 90% | BMI 44.21 kg/m | BSA 2.14 m Pain 0 Physical Exam Constitutional: Appearance: She is obese. Cardiovascular: Rate and Rhythm: Normal rate and regular rhythm. Pulses: Normal pulses. Pulmonary: Effort: Pulmonary effort is normal. Breath sounds: Normal breath sounds. Abdominal: General: Bowel sounds are normal. Palpations: Abdomen is soft. Musculoskeletal: General: Normal range of motion. Cervical back: Normal range of motion. Right lower leg: Edema present. Left lower leg: Edema present. Skin: General: Skin is warm and dry. Capillary Refill: Capillary refill takes 2 to 3 seconds. Neurological: General: No focal deficit present. Mental Status: She is alert and oriented to person, place, and time. Psychiatric: Mood and Affect: Mood normal. Behavior: Behavior normal. [facility]-10 Completed this Visit: No. Routine visit Treatment/Plan: Continue medications as prescribed Keep all upcoming MD appointments Low na/diabetic diet Weigh daily Blood sugar daily Fall precautions- walker 24 hour caregiver Compression pumps daily- alternating legs RN CM follow up in 6 weeks. Home Interventions Provided: Reinforced current Plan of Care, including self-management and medication regimen Patient Needs to Remember: Call [facility] with any medical concerns/ red flags Referrals Needed: N/a Follow Up: Is there cellular connectivity/connectivity in the home? Yes Does the patient have internet in the home? No Patient encouraged to call the intake phone number for all urgent but not emergent issues. Scheduled to follow up with patient in 6 weeks. Destiny Byers RN 09/10/2023 1:29 PM documented in this encounter Plan of Treatment Upcoming Encounters Date Type Department Care Team (Late st Contact Info) Description 10/08/2023 1:30 PM EST Telemedicine Urology, [facility] 132 [place] [address] Chandler Pena MD 27 [facility] [address] [place] [address] 10/22/2023 2:00 PM EST Office Visit Cardiology, [facility] 132 [facility] [place] [address] Mariano Patel MD [address] [place] [address] 10/23/2023 5:30 PM EST [facility], [facility] 132 [facility] [place] [address] Destiny Schultz RN 132 [place] [address] 12/03/2023 3:00 PM EDT Office Visit Dermatology [address] [place] [address] Sheryl Pena PA-C [address] [place] [address] [place] [address] 12/08/2023 1:00 PM EDT Office Visit Ophthalmology, [facility] 132 [facility] [place] [address] Romel Mcclelland T, DO [address] [place] [address] 01/06/2024 1:30 PM EDT Cardiac Studies Cardiology [address] [place] [address] [facility] 132 [facility] [place] [address] 03/30/2024 3:40 PM EDT Office Visit Family Medicine [address] [place] [address] Verónica Benavides MD [address] [place] [address] [place] [address] Health Maintenance Due Date Last Done Comments [...] Additional history exists CKD PHOS USE SMARTSET 95841 02/08/202401/23, 08/07/2021, 11/09/2019, Additional history exists TSH 03/25/2024 03/25/2023, 07/0 10/2022, 10/28/2022, Additional history exists CKD HGB USE SMARTSET 62205 05/26/202405/26, 05/26/2023, 04/07/2023, Additional history exists Pneumococcal [...] Documents on File Type Date Recorded 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
--- OUTSIDE RECORDS SUMMARY | 2023-12-10 00:37 | External Medical Summary | Summary of Care ---
Author Name Unknown Organization [facility] Address [address] [place] [address] Phone [phone] Care Team Providers Care Cardio Clinician Name Role Phone Verónica Benavides MD Primary Care Provide r Encounter Details Date Type Department Care Team (Late st Contact Info) Description 09/05/2023 Telephone Urology Jhon Zayas [address] [place] [address] [place] [address] Chandler Pena MD [address] [place] [address] [place] [address] Allergies Active Allergy Reactions Criticality Noted Date [...] in the morning. 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 Last Assessment & Plan: [facility] Triage Call: Reviewed last C&S [...] mRNA, LNP-s, No Pre serve, 2-Dose Series ([employer]) 08/29/2021,10/23/2020,10/02/2020 COVID-19, MRNA-LNP, 23-24, P F, 30 MCG/0.3 mL, 12 YRS AND ABOVE, IM ([employer]) 08/04/2023 Covid-19, Mrna, Lnp-s, Pf, B ivalent, [...] encounter Miscellaneous Notes * Telephone Encounter - Paris Santos LPN [...] Description 09/10/2023 2:00 PM EST [facility], [facility] 132 [facility] [place] [address] Destiny Schultz RN 132 [facility] [place] [address] 10/08/2023 1:30 PM EST Telemedicine Urology, [facility] 132 [facility] [address] Chandler Pena MD 27 [facility] [place] [address] [place] [address] 10/22/2023 2:00 PM EST Office Visit Cardiology, [address] [place] [address] Mariano Patel MD [address] [place], [place] [address] 12/03/2023 3:00 PM EDT Office Visit Dermatology [address] [place] [address] Sheryl Pena PA-C [address] [place] [address] [place] [address] 12/08/2023 1:00 PM EDT Office Visit Ophthalmology, [address] [place] [address] Romel Mcclelland T, DO [address] [place] [address] 01/06/2024 1:30 PM EDT Cardiac Studies Cardiology [address] [place] [address] [facility] 132 [facility] [place] [address] 03/30/2024 3:40 PM EDT Office Visit Family Medicine [address] [place] [phone] Verónica Benavides MD [address] [place] [address] [place] [address] Health Maintenance Due Date Last Done Comments [...] Additional history exists CKD PHOS USE SMARTSET 01082 02/08/202401/23, 08/07/2021, 11/09/2019, Additional history exists TSH 03/25/2024 03/25/2023, 07/0 10/2022, 10/28/2022, Additional history exists CKD HGB USE SMARTSET 50740 05/26/202405/26, 05/26/2023, 04/07/2023, Additional history exists Pneumococcal [...] Documents on File Type Date Recorded Patient Credit Professional Expl anation Advance Directives and Living Will 08/10/2021 ADVANCE DIRECTIVE / LIVING WILL LIVING WILL Healthcare Agents on File Name Relationship Healthcare Agent Relationshi p Communication Josselyn Judd Adult Child Health Care Power of Attor nathalie Care Teams Cardio Clinician Relationship Specialty Start Date End Date Verónica Benavides MD [address] [place] [address] [place] [address] PCP - General Family Medicine 09/16/14 documented as of this encounter
--- OUTSIDE RECORDS SUMMARY | 2023-12-10 00:37 | External Medical Summary | Summary of Care ---
Author Name Unknown Organization [facility] Address [address] [place] [address] Phone [phone] Care Team Providers Care Fuse Cutter Name Role Phone Verónica Benavides MD Primary Care Provide r Reason for Visit * Reason Onset Date Comments [facility]: Acute 10/10/2023 Encounter Details Date Type Department Care Team ([facility] st Contact Info) Description 10/10/2023 Telephone [facility], [facility] [address] [place] [address] [facility], Nurse [facility] [address] [place] [address] [facility]: Acute Allergies Active Allergy [...] in the morning. 0 08/08/2021 Active Nystatin 117191 UNIT/GM External Powder (Nystop)Indications: Lydia rash of [...] XL)Indications:Non-i schemic cardiomyopathy (HCC),Coronary artery disease involving [place]ana coronary artery of gulkana heart without angina pectoris,HTN, goal below 140/90 [...] without long-term current use of insulin ([facility]),Type 2 diabetes mellitus with hemoglobin A1c goal of less than 8.0% ([facility]) TEST UP TO FOUR [...] Tablet 3 07/08/2023 Active OneTouch Delica Plus [id number] :Type 2 diabetes mellitus with hemoglobin A1c goal of less than 8.0% ([facility]) Test up to two times daily or as directed by [facility] pharmacist 200 Each 3 07/11/2023 Active Torsemide 20 MG Oral Tablet (Demadex)Indications :Heart failure, systolic, due to idiopathic cardiomyopathy ([facility]) Take 60 mg by [...] 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 Last Assessment & Plan: [facility] Triage Call: Reviewed last C&S [...] Continue synthroid Coronary artery disease invo lving gulkana coronary artery of gulkana heart without angina pectoris 07/03/2012 Overview: 60% [...] mRNA, LNP-s, No Pre serve, 2-Dose Series ([employer]) 08/29/2021,10/23/2020,10/02/2020 COVID-19, MRNA-LNP, 23-24, P F, 30 [...] and correspondence: FYI to Regla's Care Team named account executive Pool please work on the following: contact the caller with advice and orders as above Mak Chaudhari DO [facility] - [facility] 10/10/2023 Scheduled appointments in the next 60 days: Future Appointments-next 60 days Date/Time Provider Specialty Dept Phone 10/22/2023 2:00 PM (Arrive by 1:45 PM) Mariano Patel MD Cardiology [phone] 10/23/2023 5:30 PM Destiny Schultz, POPPY [facility] [phone] 12/03/2023 3:00 PM (Arrive by 2:45 PM) Sheryl Pena PA-C Dermatology [phone] 12/08/2023 1:00 PM Romel Mcclelland DO Ophthalmology [phone] 01/06/2024 1:30 PM (Arrive by 1:15 PM) Aleta Abel [facility] Cardiology [phone] 03/30/2024 3:40 PM (Arrive by 3:25 PM) Verónica Benavides MD Family Medicine [phone] 04/21/2024 10:30 AM Chandler Pena MD Urology [phone] * Telephone Encounter - Briseyda Rich RN - 10/10/2023 11:29 AM EST [facility] named account executive Acute Call Date: 10/10/2023 Time: 11:29 AM Name: Regla Stiles : 1935 Caller: Josselyn Relationship to : daughter HPI: Regla Stiles is a 88 year old female whose daughter / Josselyn is calling [facility] to report her mother [...] days, but always calls to check with [facility] before doing that. Daughter stated her [...] recommendations Follow up weekend calls Briseyda Rich case resolution specialistExamination Grader [facility] documented in this encounter Plan of Treatment Upcoming Encounters Date Type Department Care Team (Late st Contact Info) Description 10/22/2023 2:00 PM EST Office Visit Cardiology, [facility] 132 [facility] [place] [address] Mariano Patel MD [address] [place] [address] 10/23/2023 5:30 PM EST Home Visit [facility] 132 [facility] [place] [address] Destiny Schultz, POPPY [facility] [place] [address] 12/03/2023 3:00 PM EDT Office Visit Dermatology [address] [place] [address] Sheryl Pena PA-C [address] [place] [address] [place] [address] 12/08/2023 1:00 PM EDT Office Visit Ophthalmology, [facility] 132 [facility] [place] [address] Romel Mcclelland, DO [address] [place] [address] 01/06/2024 1:30 PM EDT Cardiac Studies Cardiology [address] [place] [address] Aleta Abel [facility] 132 [facility] [place] [address] 03/30/2024 3:40 PM EDT Office Visit Family Medicine [address] [place] [phone] Verónica Benavides MD [address] [place] [address] [place] [address] 04/21/2024 10:30 AM EDT Telemedicine Urology, [facility] 132 [facility] [place] [address] Chandler Pena MD [address] [place] [address] [address] [place] [address] Health Maintenance Due Date Last Done Comments [...] Additional history exists CKD PHOS USE SMARTSET 21872 02/08/202401/23, 08/07/2021, 11/09/2019, Additional history exists TSH 03/25/2024 03/25/2023, 07/0 10/2022, 10/28/2022, Additional history exists CKD HGB USE SMARTSET 99386 05/26/202405/26, 05/26/2023, 04/07/2023, Additional history exists Pneumococcal [...] Documents on File Type Date Recorded Patient Client Support Associate Expl anation Advance Directives and Living Will 08/10/2021 ADVANCE DIRECTIVE / LIVING WILL LIVING WILL Healthcare Agents on File Name Relationship Healthcare Agent Relationshi p Communication Josselyn Judd Adult Child Health Care Power of Attor nathalie Care Teams Fuse Cutter Relationship Specialty Start Date End Date Verónica Benavides MD [address] [place] [address] [place] [address] PCP - General Family Medicine 09/16/14 documented as of this encounter
--- OUTSIDE RECORDS SUMMARY | 2023-12-10 00:37 | External Medical Summary | Summary of Care ---
Author Name Unknown Organization [facility] Address [address] [place] [address] Phone [phone] Care Team Providers Care Informatics Consultant Name Role Phone Verónica Jiang MD Primary Care Provide r Encounter Details Date Type Department Care Team (Late st Contact Info) Description 10/08/2023 1:30 PM EST Telemedicine Urology, [facility] 132 [facility] [place] [address] Chandler Pena MD 27 [facility] [address] [place] [address] Dysuria*; Postmenopausal atrophic vaginitis; Chronic bacteriuria Allergies Active Allergy Reactions Criticality Noted Date Comments Adhesive Tape Medium 01/30/2022 Ibuprofen Hives 01/13/2012 Aspirin Hives,Rash 09/15/2000 Sulfamethoxazole-Trimeth oprim Nausea/vomiting,Othe r (Please comment) 10/27/2020 Dizziness Ciprofloxacin Hcl 06/16/2019 Hoarse, dizzy,disoriented Morphine 09/21/2021 Blacked out Penicillins Hives,Rash 09/15/2000 Prednisone 12/30/2017 Weakness/memory changes/blurred vision documented as of this encounter (statuses as of 10/08/2023) Medications Medication Sig Dispensed Refills Start Date [...] in the morning. 0 1 Active Nystatin 766016 UNIT/GM External Powder (Nystop)Indication s:Lydia rash of [...] XL)Indications:Non -ischemic cardiomyopathy (HCC),Coronary artery disease involving [place] coronary artery of [place] heart without angina pectoris,HTN, goal below [...] disease, without long-term current use of insulin ([facility]),Type 2 diabetes mellitus with hemoglobin A1c goal of less than 8.0% ([facility]) TEST UP TO FOUR TIMES [...] for Cough. 120 mL 1 3 Active Trulicity 0.75 MG/0.5ML Subcutaneous Solution Pen-injector (Dulaglutide) Inject 0.75 mg under the skin once a week. 2 mL 3 3 Active Myrbetriq 25 MG Oral Tablet Extended Release 24 Hour (Mirabegron ER) Take 1 Tablet by mouth in the morning. 90 Tablet 3 3 Active OneTouch Delica Plus [id number] ns:Type 2 diabetes mellitus with hemoglobin A1c goal of less than 8.0% ([facility]) Test up to two times daily or as directed by [facility] pharmacist 200 Each 3 3 Active Torsemide [...] With food. 90 Capsule 3 4 Active Nitrofurantoin Monohyd Macro 100 MG Oral Capsule (Macrobid) Take 1 Capsule by mouth in the morning and 1 Capsule before bedtime. With food.. 60 Capsule 2 3 024 Discontinued(Re fill) Cefdinir 300 MG Oral Capsule (Omnicef) Take 1 Capsule by mouth in the morning and 1 Capsule before bedtime. 10 Capsule 0 4 024 Discontinued documented as of this encounter (statuses as of 10/08/2023) Active Problems Problem Noted Date Diagnosed Date [...] 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 Last Assessment & Plan: [facility] Triage Call: Reviewed last C&S - [...] Continue synthroid Coronary artery disease invo lving ute mountain coronary artery of [place] mountain heart without angina pectoris 07/03/2012 Overview: [...] as of this encounter (statuses as of 10/08/2023) Resolved Problems Problem Noted Date Diagnosed Date [...] as of this encounter (statuses as of 10/08/2023) Immunizations Name Administration Dates Next Due COVID-19 mRNA, LNP-s, No Pre serve, 2-Dose Series ([employer]) 08/29/2021,10/23/2020,10/02/2020 COVID-19, MRNA-LNP, 23-24, P F, 30 MCG/0.3 mL, 12 YRS AND ABOVE, IM ([employer]) 08/04/2023 Covid-19, Mrna, Lnp-s, Pf, B ivalent, [...] as of this encounter Progress Notes * Chandler Pena MD - 10/08/2023 1:46 PM EST [id number] PCP: VERÓNICA JIANG [address] [place] [address] [place] [address] Patient location: HOME. I was in a hospital or clinic location. After connecting through televideo,patient was verified with two unique identifiers. Patient (or authorized legal healthcare sales representative) was then informed that this was a Telemedicine visit and being conducted confidentially over secure lines. Methods to assure confidentiality were taken. Patient acknowledged consent and understanding of pr ivacy and security of the Telemedicine visit. The patient agreed to participate. Regla Stiles is a 88 year old female, who presents for f/u of her history of UTI. She is currently on Macrobid BID. She notes she has "good days and bad days," the latter being days when she feels like doesn't want to do anything. Daughter feels Cefdnir "cleared cloudiness" and improved voiding. UTI: Presented to Urology Feb 2023. Provided Myrbetriq 25 mg. Using vaginal estrogens. Questionable intolerance of methenamine in the past. Renal US Jan 2023. Cystoscopy February 2023: Sequelae of bladder outlet obstruction. UC&S Aug 2023: Culture Growth >100,000 colonies/mL Klebsiella pneumoniae Abnormal AmpC Beta-lactamase producing organism. This gram negative bacilli displays in vitro resistance to multiple antibiotics. >100,000 colonies/mL - second type Klebsiella pneumoniae Abnormal <10,000 colonies/ml mixed normal rachid Resulting Agency: Susceptibility Klebsiella pneumoniae (1) Klebsiella pneumoniae (2) MICROBROTH DILUTIONS MICROBROTH DILUTIONS Ampicillin/Sulbactam Susceptible Susceptible Cefazolin Susceptible Susceptible Cefepime Susceptible Susceptible Cefoxitin Resistant Ceftriaxone Susceptible Susceptible Ciprofloxacin Susceptible Susceptible Gentamicin Susceptible Susceptible Levofloxacin Intermediate Nitrofurantoin Resistant Resistant Piperacillin Tazobactam Susceptible Susceptible Trimeth/Sulfamethoxazole Susceptible Susceptible Current Outpatient Medications Medication Sig Dispense Refill STOOL SOFTENER 100 MG PO TABS 3-4 tabs daily as needed GLUCOSAMINE CHONDR 500 COMPLEX PO CAPS Take by mouth 2 times a day. MAGNESIUM OXIDE 400 MG PO TABS one pill each day Acetaminophen (APAP) 325 MG Tablet Take 1 Tablet by mouth every 6 hours as needed. [employer] Verio w/Device Kit Use up to 4 times a day E11.9 1 Kit 0 Cyanocobalamin 1000 MCG Oral Tablet (Cyanocobalamin) Take 1 Tablet by mouth in the morning. Nystatin [id number] UNIT/GM External Powder (Nystop) Apply topically to affected area 2 times a day . 60 g 11 Probiotic Acidophilus BioBeads Oral Capsule Take 1 Capsule by mouth every evening. Just with antibiotics Meclizine HCl 25 MG Oral Tablet (Antivert) Take 1 tablet by mouth 3 times a day as needed for dizziness 30 Tablet 5 D-Mannose 500 MG Oral Capsule Take by mouth 2 times a day. 2 caps two times daily Vitamin D-3 25 MCG (1000 UT) Oral Capsule Take 1 Capsule by mouth in the morning. Docusate Sodium 50 MG/5ML Oral Liquid (Colace) Place 10 gtts to each ear for 30 min then irrigate. 120 mL 3 Bisacodyl 5 MG Oral Tablet Delayed Release [...] mouth in the morning. 45 Tablet 3 metOLazone 2.5 MG Oral Tablet (Zaroxolyn) Take one tablet only when directed by clinician. 5 Tablet0 Benzonatate 100 MG Oral Capsule Take 1 Capsule by mouth 3 times a day as needed for Cough. 30 Capsule 1 Clotrimazole 1 % External Cream (Lotrimin) APPLY TO THE AFFECTED AREA(S) TWICE DAILY FOR FOURTEEN DAYS 60 g 2 Ondansetron HCl 4 MG Oral Tablet Take 1 Tablet by mouth every 6 hours as needed for Nausea. 30 Tablet 0 OneTouch Verio In Vitro Strip (Glucose Blood) TEST UP TO FOUR TIMES DAILY 400 Strip 1 Potassium Chloride Laura ER 20 MEQ Oral Tablet Extended Release Take 1 Tablet by mouth 2 times a daywith morning and evening meals. 180 Tablet 1 Colchicine 0.6 MG Oral Tablet Take one twice for gout attack 8 Tablet 0 Fosfomycin Tromethamine 3 GM Oral Packet (Monurol) Take 3 g by mouth every 3 days. 3 Packet 0 Promethazine-DM 6.25-15 MG/5ML Oral Syrup Take 5 mL by mouth 4 times a day as needed for Cough. 120mL 1 Trulicity 0.75 MG/0.5ML Subcutaneous Solution Pen-injector (Dulaglutide) Inject 0.75 mg under the skin once a week. 2 mL 3 Myrbetriq 25 MG Oral Tablet Extended Release 24 Hour (Mirabegron ER) Take 1 Tablet by mouth in the morning. 90 Tablet 3 OneTouch Delica Plus [id number] Test up to two times daily or as directed by [facility] pharmacist 200 Each 3 Torsemide 20 MG Oral Tablet (Demadex) [...] around vulvar area nightly 30 g 5 Nitrofurantoin Monohyd Macro 100 MG Oral Capsule (Macrobid) Take 1 Capsule by mouth in the morning and 1 Capsule before bedtime. With food.. 60 Capsule 2 Omeprazole 20 MG Oral Capsule Delayed Release (PriLOSEC) TAKE ONE CAPSULE BY MOUTH EVERY DAY, ONE hour BEFORE THE first meal of THE DAY 90 Capsule 1 Levothyroxine Sodium 88 MCG Oral Tablet (Levoxyl) TAKE ONE TABLET BY MOUTH EVERY MORNING 30 MINS PRIOR TO FIRST MEAL OF THE DAY OR OTHER MEDS 90 Tablet 3 Cefdinir 300 MG Oral Capsule (Omnicef) Take 1 Capsule by mouth in the morning and 1 Capsule before bedtime. 10 Capsule 0 No current facility-administered medications for this visit. Review of patient's allergies indicates: Allergen Reactions Adhesive Tape Advil [Ibuprofen] Hives Aspirin Hives and Rash Bactrim [Sulfamethoxazole-Trimethoprim] Nausea/vomiting and Other (Please comment) Dizziness Ciprofloxacin Hcl Hoarse, dizzy,disoriented Morphine Blacked out Penicillins Hives and Rash Prednisone Weakness/memory changes/blurred vision Social History: Social History Tobacco Use Smoking status: Never Smokeless tobacco: Never Substance Use Topics Alcohol use: No Vaping/E-Cigarette Use Vaping/E-Cigarette Use Never User Vaping/E-Cigarette Substances Vaping/E-Cigarette Devices Family History Problem Relation Age of Onset Heart Disorder Mother mi age 50 Hypertension Mother Diabetes Mother Past Surgical History: Procedure Laterality Date ANESTH, TOTAL KNEE REPLACEMENT Bilateral FRAGMENT KIDNEY STONE BY SHOCK WAVE 11/08/05 ESWL (Extracorporeal Shock Wave Lithotripsy) FRAGMENT KIDNEY STONE BY SHOCK WAVE 07-06-2008 ESWL (Extracorporeal Shock Wave Lithotripsy) FRAGMENT KIDNEY STONE BY SHOCK WAVE 08/12/2008 INFORMATION 2000 excision of seborrheic keratosis on L breast INFORMATION plate in left arm LAPAROSCOPY; CHOLECYSTECTOMY TOTAL HYSTERECTOMY age 48 fibroids Past Medical History: Diagnosis Date ACEI/ARB contraindicated Calculus of kidney Diverticulitis of colon DM type 2, goal A1c below 7 Diabetes Type II, Controlled Esophageal reflux Impaired glucose tolerance Obesity, BMI not known Patient Active Problem List Diagnosis Code GENERAL OSTEOARTHROSIS M15.9 Hypothyroidism E03.9 DYSLIPIDEMIA, GOAL LDL BELOW 100 E78.5 Exertional dyspnea R06.09 Aspirin allergy Z88.8 LBBB (left bundle branch block) I44.7 First degree atrioventricular block I44.0 Coronary artery disease involving ute mountain coronary artery of ute mountain heart without angina pectoris I25.10 ACEI/ARB contraindicated [id number] Type 2 diabetes mellitus with hemoglobin A1c goal of less than 8.0% ([facility]) E11.9 Non-ischemic cardiomyopathy ([facility]) I42.8 Heart failure, systolic, due to idiopathic cardiomyopathy ([facility]) I50.20, I42.9 Aortic valve stenosis I35.0 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 Type 2 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 disease, without long-term current use of insulin ([facility]) E11.22, N18.31 Lymphedema of both lower extremities I89.0 Benign paroxysmal vertigo of both ears H81.13 Gastroesophageal reflux disease without esophagitis K21.9 Type 2 diabetes mellitus with mild nonproliferative diabetic retinopathy without macular edema, right eye ([facility]) E11.3291 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 History of recurrent UTI (urinary tract infection) Z87.440 Trochanteric bursitis of right hip M70.61 Ventral hernia without obstruction or gangrene K43.9 Impaired mobility and ADLs Z74.09, Z78.9 Bilateral impacted cerumen H61.23 Constipation K59.00 Acute cystitis without hematuria N30.00 Transient confusion R41.0 Postmenopausal atrophic vaginitis N95.2 Constitutional: (-) fever and (-) chills Eyes: (+) corrective lenses ENT: (-) stridor Female : (+) see HPI Musculoskeletal: (+) muscle weakness Neurology: (+) loss of balance Psychiatry: (+) depression Physical Exam Constitutional: General: She is not in acute distress. Appearance: She is obese. She is not toxic-appearing. HENT: Head: Normocephalic and atraumatic. Right Ear: External ear normal. Left Ear: External ear normal. Nose: Nose normal. Mouth/Throat: Mouth: Mucous membranes are moist. Eyes: Extraocular Movements: Extraocular movements intact. Pulmonary: Effort: Pulmonary effort is normal. No respiratory distress. Abdominal: General: There is no distension. Palpations: Abdomen is soft. Skin: Coloration: Skin is not pale. Neurological: General: No focal deficit present. Mental Status: She is oriented to person, place, and time. Psychiatric: Thought Content: Thought content normal. Impression/Plan: 88 yo female with history of UTI. Seen the patient's holding behaviour I think timed voiding would be [place]. Will switch to [facility] Macrobid again once her current course if complete. Above content is personally reviewed. Patient vocalizes good understanding of the treatment plan. Fluid intake encouraged. Will see back in 6 months to check on progress. Chandler Pena MD 1:46 PM 10/08/2023 documented in this encounter Plan of Treatment Upcoming Encounters Date Type Department Care Team (Late st Contact Info) Description 10/22/2023 2:00 PM EST Office Visit Cardiology, [facility] 132 [facility] [place] [address] Mariano Patel MD [address] [place] [address] 10/23/2023 5:30 PM EST Home Visit [facility] 132 [facility] [place] [address] Destiny Schultz RN 132 [facility] [place] [address] 12/03/2023 3:00 PM EDT Office Visit Dermatology [address] [place] [address] Sheryl Pena PA-C [address] [place] [address] [place] [address] 12/08/2023 1:00 PM EDT Office Visit Ophthalmology, [facility] 132 [facility] [place] [address] Romel Mcclelland, DO [address] [place] [address] 01/06/2024 1:30 PM EDT Cardiac Studies Cardiology [address] [place] [address] [facility] 132 [facility] [place] [address] 03/30/2024 3:40 PM EDT Office Visit Family Medicine [address] [place] [phone] Verónica Jiang MD [address] [place] [address] [place] [address] 04/21/2024 10:30 AM EDT Telemedicine Urology, [facility] 132 [facility] [place] [address] Chandler Pena MD [address] [place] [address] [place] [address] Health Maintenance Due Date Last Done Comments [...] Additional history exists CKD PHOS USE SMARTSET 31356 02/08/202401/23, 08/07/2021, 11/09/2019, Additional history exists TSH 03/25/2024 03/25/2023, 0710/2022, 10/28/2022, Additional history exists CKD HGB USE SMARTSET 45550 05/26/202405/26, 05/26/2023, 04/07/2023, Additional history exists Pneumococcal [...] as of this encounter Visit Diagnoses Diagnosis Dysuria- Primary Postmenopausal atrophic vaginitis Chronic bacteriuria Other nonspecific finding on examination of urine documented in this encounter Advance Directives Documents on File Type Date Recorded Patient Echo Technologist Expl anation Advance Directives and Living Will 08/10/2021 ADVANCE DIRECTIVE / LIVING WILL LIVING WILL Healthcare Agents on File Name Relationship Healthcare Agent [facility] Communication Josselyn Judd Adult Child Health Care Power of Attor nathalie Care Teams Informatics Consultant Relationship Specialty Start Date End Date Verónica Jiang MD [address] [place] [address] [place] [address] PCP - General Family Medicine 09/16/14 documented as of this encounter
--- OUTSIDE RECORDS SUMMARY | 2023-12-10 00:38 | External Medical Summary | Summary of Care ---
Author Name Unknown Organization [facility] Address [address] [place] [address] Phone [phone] Care Team Providers Care Bell Neck Hammerer Name Role Phone Verónica Benavides MD Primary Care Provide r Reason for Visit * Reason Onset Date Comments [facility]: Maintenance 09/06/2023 Encounter Details Date Type Department Care Team ([facility] st Contact Info) Description 09/06/2023 11:30 AM EST Scheduled Telephone [facility], [facility] [address] [place] [address] [facility], Nurse [facility] [address] [place] [address] Allergies Active Allergy Reactions Criticality Noted Date Comments Adhesive Tape Medium 01/30/2022 Ibuprofen Hives 01/13/2012 Aspirin Hives,Rash 09/15/2000 Sulfamethoxazole-Trimeth oprim Nausea/vomiting,Othe r (Please comment) 10/27/2020 Dizziness Ciprofloxacin Hcl 06/16/2019 Hoarse, dizzy,disoriented Morphine 09/21/2021 Blacked out Penicillins Hives,Rash 09/15/2000 Prednisone 12/30/2017 Weakness/memory changes/blurred vision documented as of this encounter (statuses as of 09/08/2023) Medications Medication Sig Dispensed Refills Start Date [...] in the morning. 0 08/08/2021 Active Nystatin 643131 UNIT/GM External Powder (Nystop)Indications: Lydia rash of [...] XL)Indications:Non-i schemic cardiomyopathy (HCC),Coronary artery disease involving poarch coronary artery of poarch heart without angina pectoris,HTN, goal below 140/90 [...] disease, without long-term current use of insulin ([facility]),Type 2 diabetes mellitus with hemoglobin A1c goal of less than 8.0% ([facility]) TEST UP TO FOUR TIMES DAILY 400 [...] Tablet 3 07/08/2023 Active OneTouch Delica Plus [id number] :Type 2 diabetes mellitus with hemoglobin A1c goal of less than 8.0% ([facility]) Test up to two times daily or as directed by [facility] pharmacist 200 Each 3 07/11/2023 Active Torsemide 20 MG Oral Tablet (Demadex)Indications :Heart failure, systolic, due to idiopathic cardiomyopathy ([facility]) Take 60 mg by mouth in the [...] as of this encounter (statuses as of 09/08/2023) Active Problems Problem Noted Date Diagnosed Date [...] 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 Last Assessment & Plan: [facility] Triage Call: Reviewed last C&S [...] Continue synthroid Coronary artery disease invo lving poarch coronary artery of poarch heart without angina pectoris 07/03/2012 Overview: 60% [...] as of this encounter (statuses as of 09/08/2023) Resolved Problems Problem Noted Date Diagnosed Date [...] as of this encounter (statuses as of 09/08/2023) Immunizations Name Administration Dates Next Due COVID-19 mRNA, LNP-s, No Pre serve, 2-Dose Series ([employer]) 08/29/2021,10/23/2020,10/02/2020 COVID-19, MRNA-LNP, 23-24, P F, 30 MCG/0.3 mL, 12 YRS AND ABOVE, IM ([facility]) 08/04/2023 Covid-19, Mrna, Lnp-s, Pf, B [...] encounter Miscellaneous Notes * Telephone Encounter - Svetlana Samuel LPN - 09/08/2023 11:20 AM EST Patients daughter aware * Telephone Encounter - Chandler Pena MD - 09/08/2023 10:34 AM EST Sensitivities noted, continue with current therapy. Thanks, * Telephone Encounter - Svetlana Samuel LPN - 09/08/2023 10:16 AM EST Patient daughter aware, she states home nursing stated she might not be on the right antibiotic in relation to her urine results. Please advise if you would like to change the antibiotic or continue with current rx. Daughter does note the patient seems to be having improvement, she played cards with peers, which she has not been doing. Thank you, Svetlana * Telephone Encounter - Carol Portillo RN - 09/07/2023 9:18 AM EST Phone call to daughter to make her aware of [facility] recommendations KATY Lynn Medical Records Technician [facility] * Telephone Encounter - Abilio Mora MD - 09/06/2023 6:41 PM EST Abx just sent to pharmacy yesteraday afternoon at 4:30, only 24 hrs into tx, I'd cont current regimen for now, sensitive to cephalosporins (pansensitive) * Telephone Encounter - Tali Patel RN - 09/06/2023 3:56 PM EST Images from the original note were not included. [facility] Telephonic Nurse Follow-Up Call [facility] Subprogram: Primary Care at Home Follow Up Call Type: 48 hour follow up Acute issue requiring follow-up call: Complicated UTI Objective: 07/29/2023 2:56 PM 06/26/2023 3:50 PM 06/16/2023 3:59 PM 06/05/2023 1:25 PM 06/04/2023 2:59 PM VITALS ACROSS ENCOUNTERS BP 108/68 122/76 102/72 118/62 Pulse 72 60 78 72 Weight 106.1 kg 108.9 kg BMI 44.21 kg/m2 45.35 kg/m2 Lab Results Component Value Date BLOOD, URINE - [facility] Small (A) 09/01/2023 PROTEIN, URINE - [facility] Trace (A) 09/01/2023 ESTERASE, URINE - [facility] Large (A) 09/01/2023 WBC CLUMPS, URINE -[facility] Present (A) 09/01/2023 WBC, URINE - [facility] 50+ (A) 09/01/2023 NITRITE, URINE - [facility] Negative 09/01/2023 QUANT URINE CULTURE GROWTH >100,000 colonies/mL Klebsiella pneumoniae (A) 09/01/2023 No results found for: "WBC AUTO - [...] DME needs identified Medications: New medication(s) added: cefdinir Subjective: Condition Status: No change in symptoms Current Concerns: Spoke to patient states she just tired Urine cloudy/phillips in color Denies belly pain/back pain 97.5, O2 95%RA, HR 80 Prelim culture + kleb C currently on cefdinir May need ABX change Please send to [facility] if new ABX is required Sending to urology also per DTR request Disposition: Follow up call scheduled for tomorrow with JDE DEVELOPER Corporate Webmaster Future Visits Scheduled: Future Appointments-next 60 days Date/Time Provider Specialty Dept Phone 09/10/2023 2:00 PM Destiny Schultz RN [facility] [phone] 10/08/2023 1:30 PM Chandler Pena MD Urology [phone] 10/22/2023 2:00 PM (Arrive by 1:45 PM) Mariano Patel MD Cardiology [phone] 12/03/2023 3:00 PM (Arrive by 2:45 PM) Sheryl Pena PA-C Dermatology [phone] 12/08/2023 1:00 PM Romel Mcclelland, Ophthalmology [phone] 01/06/2024 1:30 PM (Arrive by 1:15 PM) Aleta Abel [facility] Cardiology [phone] 03/30/2024 3:40 PM (Arrive by 3:25 PM) Verónica Benavides MD Family Medicine [phone] Tali Patel RN documented in this encounter Plan of Treatment Upcoming Encounters Date Type Department Care Team (Late st Contact Info) Description 09/10/2023 2:00 PM EST Home Visit [facility], [facility] [address] [place] [address] Destiny Schultz RN [address] [place] [address] 10/08/2023 1:30 PM EST Telemedicine Urology, [facility] [address] [place] [address] Chandler Pena MD [address] [facility] [address] [place] [address] 10/22/2023 2:00 PM EST Office Visit Cardiology, [facility] [address] [place] [address] Mariano Patel MD [address] [place], [place] [id number] 12/03/2023 3:00 PM EDT Office Visit Dermatology [address] [place] [address] Sheryl Pena PA-C [address] [place] [address] [place] [address] 12/08/2023 1:00 PM EDT Office Visit Ophthalmology, [facility] [address] [place] [address] Romel Mcclelland T, DO [address] [place] [address] 01/06/2024 1:30 PM EDT Cardiac Studies Cardiology [address] [place] [address] [facility] 132 [facility] [place] [address] 03/30/2024 3:40 PM EDT Office Visit Family Medicine [address] [place] [phone] Verónica Benavides MD [address] [place] [address] [place] [address] Health Maintenance Due Date Last Done Comments [...] Additional history exists CKD PHOS USE SMARTSET 60405 02/08/202401/23, 08/07/2021, 11/09/2019, Additional history exists TSH 03/25/2024 03/25/2023, 07/0 10/2022, 10/28/2022, Additional history exists CKD HGB USE SMARTSET 83011 05/26/202405/26, 05/26/2023, 04/07/2023, Additional history exists Pneumococcal [...] on File Type Date Recorded Patient Client Analyst Expl anation Advance Directives and Living Will 08/10/2021 ADVANCE DIRECTIVE / LIVING WILL LIVING WILL Healthcare Agents on File Name Relationship Healthcare Agent [facility] Communication Josselyn Judd [facility] Child Health Care Power of Attor nathalie Care Teams [place] Hammerer Relationship Specialty Start Date End Date Verónica Benavides MD [address] [place] [address] [place] [address] PCP - General Family Medicine 09/16/14 documented as of this encounter
--- OUTSIDE RECORDS SUMMARY | 2023-12-10 00:38 | External Medical Summary | Summary of Care ---
Author Name Unknown Organization [facility] Address [address] [place] [address] Phone [phone] Care Team Providers Care Patch Worker Name Role Phone Verónica Benavides MD Primary Care Provide r Reason for Visit * Reason Onset Date Comments [facility]: Maintenance 09/06/2023 Encounter Details Date Type Department Care Team ([facility] st Contact Info) Description 09/06/2023 11:30 AM EST Scheduled Telephone [facility], [facility] [address] [place] [address] [facility], Nurse [facility] [address] [place] [address] Allergies Active Allergy Reactions Criticality Noted Date [...] in the morning. 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 Thanks, HM * Telephone Encounter - Svetlana Samuel LPN [...] to daughter to make her aware of [facility] recommendations KATY Lynn Robotics Technologist [facility] at Home * Telephone Encounter - Abilio [...] [facility] Telephonic Nurse Follow-Up Call [facility] Subprogram: Primary Care at Home Follow [...] May need ABX change Please send to [facility] if new ABX is required Sending to urology also per DTR request Disposition: Follow up call scheduled for tomorrow with SCALING MACHINE OPERATOR Diesel Locomotive Engineer Future Visits Scheduled: Future Appointments-next 60 days Date/Time Provider Specialty Dept Phone 09/10/2023 2:00 PM Destiny Schultz, POPPY [facility] [phone] 10/08/2023 1:30 PM Chandler Pena MD Urology [phone] 10/22/2023 2:00 PM (Arrive by 1:45 PM) Mariano Patel MD Cardiology [phone] 12/03/2023 3:00 PM (Arrive by 2:45 PM) Sheryl Pena PA-C Dermatology [phone] 12/08/2023 1:00 PM Romel Mcclelland, Ophthalmology [phone] 01/06/2024 1:30 PM (Arrive by 1:15 PM) [facility] [phone] 03/30/2024 3:40 PM (Arrive by 3:25 PM) Verónica Benavides MD Family Medicine [phone] Tali Patel RN documented in this encounter Plan of Treatment Upcoming Encounters Date Type Department Care Team (Late st Contact Info) Description 09/10/2023 2:00 PM EST Home Visit [facility], [facility] 132 [facility] [place] [address] Destiny Schultz RN 132 [facility] [place] [address] 10/08/2023 1:30 PM EST Telemedicine Urology, [facility] [address] [place] [address] Chandler Pena MD 27 [facility] [address] [place] [address] 10/22/2023 2:00 PM EST Office Visit Cardiology, [facility] [address] [place] [address] Mariano Patel MD [address] [place] [address] 12/03/2023 3:00 PM EDT Office Visit Dermatology [address] [place] [address] Sheryl Pena PA-C [address] [place] [address] [place] [address] 12/08/2023 1:00 PM EDT Office Visit Ophthalmology, [facility] [address] [place] [address] Romel Mcclelland T, DO [address] [place] [address] 01/06/2024 1:30 PM EDT Cardiac Studies Cardiology [address] [place] [address] [facility] 132 [facility] [place] [address] 03/30/2024 3:40 PM EDT Office Visit Family Medicine [address] [place] [phone] Verónica Benavides MD [address] [place] [address] [place] [address] Health Maintenance Due Date Last Done Comments [...] Additional history exists CKD PHOS USE SMARTSET 61414 02/08/202401/23, 08/07/2021, 11/09/2019, Additional history exists TSH 03/25/2024 03/25/2023, 07/0 10/2022, 10/28/2022, Additional history exists CKD HGB USE SMARTSET 10049 05/26/202405/26, 05/26/2023, 04/07/2023, Additional history exists Pneumococcal [...] Documents on File Type Date Recorded Patient Javascript Developer Expl anation Advance Directives and Living Will 08/10/2021 ADVANCE DIRECTIVE / LIVING WILL LIVING WILL Healthcare Agents on File Name Relationship [facility] Josselyn Judd Adult Child Health Care Power of Attor nathalie Care Teams Patch Worker Relationship Specialty Start Date End Date Verónica Benavides MD [address] [place] [address] [place] [address] PCP - General Family Medicine 09/16/14 documented as of this encounter
--- OUTSIDE RECORDS SUMMARY | 2023-12-10 00:38 | External Medical Summary | Summary of Care ---
Author Name Unknown Organization [facility] Address [address] [place] [address] Phone [phone] Care Team Providers Care Engineering Group Leader Name Role Phone Verónica Benavides MD Primary Care Provide r Reason for Visit * Reason Onset Date Comments [facility]: Maintenance 09/06/2023 Encounter Details Date Type Department Care Team ([facility] st Contact Info) Description 09/06/2023 11:30 AM EST Scheduled Telephone [facility], [facility] [address] [place] [address] [facility], Nurse [facility] [address] [place] [address] Allergies Active Allergy Reactions Criticality Noted Date Comments Adhesive Tape Medium 01/30/2022 Ibuprofen Hives 01/13/2012 Aspirin Hives,Rash 09/15/2000 Sulfamethoxazole-Trimeth oprim Nausea/vomiting,Othe r (Please comment) 10/27/2020 Dizziness Ciprofloxacin Hcl 06/16/2019 Hoarse, dizzy,disoriented Morphine 09/21/2021 Blacked out Penicillins Hives,Rash 09/15/2000 Prednisone 12/30/2017 Weakness/memory changes/blurred vision documented as of this encounter (statuses as of 09/07/2023) Medications Medication Sig Dispensed Refills Start Date [...] in the morning. 0 08/08/2021 Active Nystatin 518507 UNIT/GM External Powder (Nystop)Indications: Lydia rash of [...] XL)Indications:Non-i schemic cardiomyopathy (HCC),Coronary artery disease involving [place] coronary artery of [place] heart without angina pectoris,HTN, goal below 140/90 [...] Tablet 3 07/08/2023 Active OneTouch Delica Plus [id number] :Type 2 diabetes mellitus with hemoglobin A1c goal of less than 8.0% ([facility]) Test up to two times daily or as directed by 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 Last Assessment & Plan: [facility] Triage Call: Reviewed last C&S - [...] Continue synthroid Coronary artery disease invo lving [place] point coronary artery of [place] heart without angina pectoris 07/03/2012 Overview: 60% [...] as of this encounter (statuses as of 09/07/2023) Resolved Problems Problem Noted Date Diagnosed Date [...] as of this encounter (statuses as of 09/07/2023) Immunizations Name Administration Dates Next Due COVID-19 mRNA, LNP-s, No Pre serve, 2-Dose Series ([employer]) 08/29/2021,10/23/2020,10/02/2020 COVID-19, MRNA-LNP, 23-24, P F, 30 MCG/0.3 mL, 12 YRS AND ABOVE, IM ([facility]) 08/04/2023 Covid-19, Mrna, Lnp-s, Pf, B ivalent, [...] to daughter to make her aware of [facility] recommendations KATY Lynn Business Specialist [facility] * Telephone Encounter - Abilio [...] [facility] Telephonic Nurse Follow-Up Call [facility] Subprogram: Primary Care at Home Follow [...] May need ABX change Please send to [facility] if new ABX is required Sending to urology also per DTR request Disposition: Follow up call scheduled for tomorrow with COURT ADVOCATE Poultry Farm Laborer Future Visits Scheduled: Future Appointments-next 60 days Date/Time Provider Specialty Dept Phone 09/10/2023 2:00 PM Destiny Schultz RN [facility] [phone] 10/08/2023 1:30 PM Chandler Pena MD Urology [phone] 10/22/2023 2:00 PM (Arrive by 1:45 PM) Mariano Patel MD Cardiology [phone] 12/03/2023 3:00 PM (Arrive by 2:45 PM) Sheryl Pena PA-C Dermatology [phone] 12/08/2023 1:00 PM Romel Mcclelland T, DO Ophthalmology [phone] 01/06/2024 1:30 PM (Arrive by 1:15 PM) Aleta Abel [facility] Cardiology [phone] 03/30/2024 3:40 PM (Arrive by 3:25 PM) Verónica Benavides MD Family Medicine [phone] Tali Patel, POPPY documented in this encounter Plan of Treatment Upcoming Encounters Date Type Department Care Team (Late st Contact Info) Description 09/10/2023 2:00 PM EST Home Visit [facility] 132 [facility] [place] [address] Destiny Schultz, POPPY 132 [facility] [place] [address] 10/08/2023 1:30 PM EST Telemedicine Urology, [facility] 132 [facility] [place] [address] Chnadler Pena MD [address] [place] [address] [place] [address] 10/22/2023 2:00 PM EST Office Visit Cardiology, [facility] 132 [facility] [place] [address] Mariano Patel MD [address] [facility] [place] [address] 12/03/2023 3:00 PM EDT Office Visit Dermatology [address] [place] [address] Sheryl Pena PA-C [address] [place] [address] [place] [address] 12/08/2023 1:00 PM EDT Office Visit Ophthalmology, [facility] [address] [place] [address] Romel Mcclelland, DO [address] [place] [address] 01/06/2024 1:30 PM EDT Cardiac Studies Cardiology [address] [place] [address] Aleta Abel [facility] 132 [facility] [address] 03/30/2024 3:40 PM EDT Office Visit Family Medicine [address] [place] [phone] Verónica Benavides MD [address] [place] [address] [place] [address] Health Maintenance Due Date Last Done Comments [...] Additional history exists CKD PHOS USE SMARTSET 62404 02/08/202401/23, 08/07/2021, 11/09/2019, Additional history exists TSH 03/25/2024 03/25/2023, 07/0 10/2022, 10/28/2022, Additional history exists CKD HGB USE SMARTSET 27230 05/26/202405/26, 05/26/2023, 04/07/2023, Additional history exists Pneumococcal [...] Documents on File Type Date Recorded Patient Bailiff Expl anation Advance Directives and Living Will 08/10/2021 ADVANCE DIRECTIVE / LIVING WILL LIVING WILL Healthcare Agents on File Name Relationship Healthcare Agent [facility] Josselyn Judd Adult Child Health Care Power of Attor nathalie Care Teams Engineering Group Leader Relationship Specialty Start Date End Date Verónica Benavides MD [address] [place] [address] [place] [address] PCP - General Family Medicine 09/16/14 documented as of this encounter
--- OUTSIDE RECORDS SUMMARY | 2023-12-10 00:38 | External Medical Summary | Summary of Care ---
Author Name Unknown Organization [facility] Address [address] [place] [address] Phone [phone] Care Team Providers Care Manager Semiconductor Name Role Phone Verónica Benavides MD Primary Care Provide r Reason for Visit * Reason Onset Date Comments [facility]: Maintenance 09/06/2023 Encounter Details Date Type Department Care Team ([facility] st Contact Info) Description 09/06/2023 11:30 AM EST Scheduled Telephone [facility], [facility] [address] [place] [address] [facility], Nurse [facility] [address] [place] [address] Allergies Active Allergy Reactions Criticality Noted Date [...] in the morning. 0 08/08/2021 Active Nystatin 497338 UNIT/GM External Powder (Nystop)Indications: Lydia rash of [...] XL)Indications:Non-i schemic cardiomyopathy (HCC),Coronary artery disease involving seneca coronary artery of seneca heart without angina pectoris,HTN, goal below 140/90 [...] disease, without long-term current use of insulin ([facility]),Type 2 diabetes mellitus with hemoglobin A1c goal of less than 8.0% ([facility]) TEST UP TO FOUR TIMES DAILY [...] Tablet 3 07/08/2023 Active OneTouch Delica Plus [id number] :Type 2 diabetes mellitus with hemoglobin A1c goal of less than 8.0% ([facility]) Test up to two times daily or as directed by [facility] pharmacist 200 Each 3 07/11/2023 Active Torsemide 20 MG Oral Tablet (Demadex)Indications :Heart failure, systolic, due to idiopathic cardiomyopathy ([facility]) Take 60 mg by mouth in [...] 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 Last Assessment & Plan: [facility] Triage Call: Reviewed last C&S [...] Continue synthroid Coronary artery disease invo lving seneca coronary artery of seneca heart without angina pectoris 07/03/2012 Overview: 60% [...] mRNA, LNP-s, No Pre serve, 2-Dose Series ([employer]) 08/29/2021,10/23/2020,10/02/2020 COVID-19, MRNA-LNP, 23-24, P F, 30 MCG/0.3 mL, 12 YRS AND ABOVE, IM ([facility]) 08/04/2023 Covid-19, Mrna, Lnp-s, Pf, [...] to daughter to make her aware of [facility] recommendations KATY Lynn Airborne Electronics Analyst [facility] * Telephone Encounter - Abilio [...] [facility] Telephonic Nurse Follow-Up Call [facility] Subprogram: Primary Care at Home Follow [...] May need ABX change Please send to [facility] if new ABX is required Sending to urology also per DTR request Disposition: Follow up call scheduled for tomorrow with SOIL ANALYST Key Account Representative Future Visits Scheduled: Future Appointments-next 60 days Date/Time Provider Specialty Dept Phone 09/10/2023 2:00 PM Destiny Schultz, POPPY [facility] [phone] 10/08/2023 1:30 PM Chandler Pena MD Urology [phone] 10/22/2023 2:00 PM (Arrive by 1:45 PM) Mariano Patel MD Cardiology [phone] 12/03/2023 3:00 PM (Arrive by 2:45 PM) Sheryl Pena PA-C Dermatology [phone] 12/08/2023 1:00 PM Romel Mcclelland, Ophthalmology [phone] 01/06/2024 1:30 PM (Arrive by 1:15 PM) Aleta Abel [facility] Cardiology [phone] 03/30/2024 3:40 PM (Arrive by 3:25 PM) Verónica Benavides MD Family Medicine [phone] Tali Patel RN documented in this encounter Plan of Treatment Upcoming Encounters Date Type Department Care Team (Late st Contact Info) Description 09/10/2023 2:00 PM EST [facility] Visit [facility], [facility] [place] [address] Destiny Schultz RN 132 [facility] [place] [address] 10/08/2023 1:30 PM EST Telemedicine Urology, [facility] [address] [place] [address] Chandler Pena MD [address] [place] [address] [place] [address] 10/22/2023 2:00 PM EST Office Visit Cardiology, [facility] 132 [facility] [place] [address] Mariano Patel MD [address] [place] [address] 12/03/2023 3:00 PM EDT Office Visit Dermatology [address] [place] [address] Sheryl Pena PA-C [address] [place] [address] [place] [address] 12/08/2023 1:00 PM EDT Office Visit Ophthalmology, [address] [place] [address] Romel Mcclelland T, [address] [address] 01/06/2024 1:30 PM EDT Cardiac Studies Cardiology [address] [place] [address] [facility] [address] [place] [address] 03/30/2024 3:40 PM EDT Office Visit Family Medicine [address] [place] [phone] Verónica Benavides MD [address] [place] [address] [place] [address] Health Maintenance Due Date Last Done Comments [...] Additional history exists CKD PHOS USE SMARTSET 46970 02/08/202401/23, 08/07/2021, 11/09/2019, Additional history exists TSH 03/25/2024 03/25/2023, 07/0 10/2022, 10/28/2022, Additional history exists CKD HGB USE SMARTSET 97445 05/26/202405/26, 05/26/2023, 04/07/2023, Additional history exists Pneumococcal [...] Documents on File Type Date Recorded Patient Automatic Tire Tester Expl anation Advance Directives and Living Will 08/10/2021 ADVANCE DIRECTIVE / LIVING WILL LIVING WILL Healthcare Agents on File Name Relationship Healthcare Agent [facility] p Communication Josselyn Judd Adult Child Health Care Power of Attor nathalie Care Teams Manager Semiconductor Relationship Specialty Start Date End Date Verónica Benavides MD [address] [place] [address] [place] [phone] PCP - General Family Medicine 09/16/14 documented as of this encounter
--- OUTSIDE RECORDS SUMMARY | 2023-12-10 00:38 | External Medical Summary | Summary of Care ---
Author Name Unknown Organization [facility] Address [address] [place] [address] Phone [phone] Care Team Providers Care Rn Ent Name Role Phone Verónica Benavides MD Primary Care Provide r Reason for Visit * Reason Onset Date Comments [facility]: Maintenance 09/06/2023 Encounter Details Date Type Department Care Team ([facility] st Contact Info) Description 09/06/2023 11:30 AM EST Scheduled Telephone [facility], [facility] [address] [place] [address] [facility], Nurse [facility] [address] [place] [address] Allergies Active Allergy Reactions Criticality Noted Date [...] in the morning. 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 Last Assessment & Plan: [facility] Triage Call: Reviewed last C&S - [...] Continue synthroid Coronary artery disease invo lving [place] coronary artery of [place] heart without angina pectoris 07/03/2012 Overview: 60% [...] mRNA, LNP-s, No Pre serve, 2-Dose Series ([employer]) 08/29/2021,10/23/2020,10/02/2020 COVID-19, MRNA-LNP, 23-24, P F, 30 MCG/0.3 mL, 12 YRS AND ABOVE, IM ([facility]) 08/04/2023 Covid-19, Mrna, Lnp-s, Pf, B ivalent, [...] her aware of [facility] recommendations KATY Lynn Direct Service Provider [facility] * Telephone Encounter - [...] [facility] Telephonic Nurse Follow-Up Call [facility] Subprogram: Primary Care at Home Follow [...] May need ABX change Please send to [facility] if new ABX is required Sending to urology also per DTR request Disposition: Follow up call scheduled for tomorrow with REVENUE TAX SPECIALIST Salon Professional Future Visits Scheduled: Future Appointments-next 60 days Date/Time Provider Specialty Dept Phone 09/10/2023 2:00 PM Destiny Schultz RN [facility] [phone] 10/08/2023 1:30 PM Chandler Pena MD Urology [phone] 10/22/2023 2:00 PM (Arrive by 1:45 PM) Mariano Patel MD Cardiology [phone] 12/03/2023 3:00 PM (Arrive by 2:45 PM) Sheryl Pena PA-C Dermatology [phone] 12/08/2023 1:00 PM Romel Mcclelland T, DO Ophthalmology [phone] 01/06/2024 1:30 PM (Arrive by 1:15 PM) Aleta Abel [facility] Cardiology [phone] 03/30/2024 3:40 PM (Arrive by 3:25 PM) Verónica Benavides MD Family Medicine [phone] Tali Patel, POPPY documented in this encounter Plan of Treatment Upcoming Encounters Date Type Department Care Team (Late st Contact Info) Description 09/10/2023 2:00 PM EST Home Visit [facility] 132 [facility] [place] [address] Destiny Schultz, POPPY 132 [facility] [place] [address] 10/08/2023 1:30 PM EST Telemedicine Urology, [facility] 132 [facility] [place] [address] Chandler Pena MD [address] [place] [address] [place] [address] 10/22/2023 2:00 PM EST Office Visit Cardiology, [facility] 132 [facility] [place] [address] Mariano Patel MD [address] [facility] [address] 12/03/2023 3:00 PM EDT Office Visit Dermatology [address] [place] [address] Sheryl Pena PA-C [address] [place] [address] [place] [address] 12/08/2023 1:00 PM EDT Office Visit Ophthalmology, [facility] [address] [place] [address] Romel Mcclelland, DO [address] [place] [address] 01/06/2024 1:30 PM EDT Cardiac Studies Cardiology [address] [place] [address] Aleta Abel [facility] 132 [place] [address] 03/30/2024 3:40 PM EDT Office Visit Family Medicine [address] [place] [phone] Verónica Benavides MD [address] [place] [address] [place] [address] Health Maintenance Due Date Last Done Comments [...] Additional history exists CKD PHOS USE SMARTSET 58104 02/08/202401/23, 08/07/2021, 11/09/2019, Additional history exists TSH 03/25/2024 03/25/2023, 07/0 10/2022, 10/28/2022, Additional history exists CKD HGB USE SMARTSET 34353 05/26/202405/26, 05/26/2023, 04/07/2023, Additional history exists Pneumococcal [...] Documents on File Type Date Recorded Patient Riprap Placing Supervisor Expl anation Advance Directives and Living Will 08/10/2021 ADVANCE DIRECTIVE / LIVING WILL LIVING WILL Healthcare Agents on File Name Relationship Healthcare Agent [facility] Communication Josselyn Judd Adult Child Health Care Power of Attor nathalie Care Teams Rn Ent Relationship Specialty Start Date End Date Verónica Benavides MD [address] [place] [address] [place] [address] PCP - General Family Medicine 09/16/14 documented as of this encounter
--- OUTSIDE RECORDS SUMMARY | 2023-12-10 00:38 | External Medical Summary | Summary of Care ---
Author Name Unknown Organization [facility] Address [address] [place] [address] Phone [phone] Care Team Providers Care Refrigeration Person Name Role Phone Verónica Benavides MD Primary Care Provide r Reason for Visit * Reason Onset Date Comments [facility]: Maintenance 09/06/2023 Encounter Details Date Type Department Care Team ([facility] st Contact Info) Description 09/06/2023 11:30 AM EST Scheduled Telephone [facility], [facility] [address] [place] [address] [facility], Nurse [facility] [address] [place] [address] Allergies Active Allergy Reactions Criticality Noted Date [...] in the morning. 0 08/08/2021 Active Nystatin 434010 UNIT/GM External Powder (Nystop)Indications: Lydia rash of [...] XL)Indications:Non-i schemic cardiomyopathy (HCC),Coronary artery disease involving [place] coronary artery of [place]yt[place] heart without angina pectoris,HTN, goal below 140/90 [...] Tablet 3 07/08/2023 Active OneTouch Delica Plus [id number] :Type 2 diabetes mellitus with hemoglobin A1c goal of less than 8.0% ([facility]) Test up to two times daily or as directed by [facility] pharmacist 200 Each 3 07/11/2023 Active Torsemide 20 MG Oral Tablet (Demadex)Indications :Heart failure, systolic, due to idiopathic cardiomyopathy ([facility]) Take 60 mg by mouth [...] 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 Thank you, Svetlana * Telephone Encounter - Carol Portillo RN - 09/07/2023 9:18 AM EST Phone call to daughter to make her aware of [facility] recommendations KATY Lynn Reptile Farmer [facility] * Telephone Encounter - Abilio [...] [facility] Telephonic Nurse Follow-Up Call [facility] Subprogram: Primary Care at Home [...] May need ABX change Please send to [facility] if new ABX is required Sending to urology also per DTR request Disposition: Follow up call scheduled for tomorrow with PROSTHETIC TECHNICIAN Detector Car Operator Future Visits Scheduled: Future Appointments-next 60 days Date/Time Provider Specialty Dept Phone 09/10/2023 2:00 PM Destiny Schultz, POPPY [facility] [phone] 10/08/2023 1:30 PM Chandler Pena MD Urology [phone] 10/22/2023 2:00 PM (Arrive by 1:45 PM) Mariano Patel MD Cardiology [phone] 12/03/2023 3:00 PM (Arrive by 2:45 PM) Sheryl Pena PA-C Dermatology [phone] 12/08/2023 1:00 PM Romel Mcclelland DO Ophthalmology [phone] 01/06/2024 1:30 PM (Arrive by 1:15 PM) Aleta Abel [facility] Cardiology [phone] 03/30/2024 3:40 PM (Arrive by 3:25 PM) Verónica Benavides MD Family Medicine [phone] Tali Patel RN documented in this encounter Plan of Treatment Upcoming Encounters Date Type Department Care Team (Late st Contact Info) Description 09/10/2023 2:00 PM EST Home Visit [facility], [facility] [address] [place] [address] Destiny Schultz RN 132 [facility] [place] [address] 10/08/2023 1:30 PM EST Telemedicine Urology, [facility] [address] [place] [address] Chandler Pena MD [address] [facility] [address] [place] [address] 10/22/2023 2:00 PM EST Office Visit Cardiology, [facility] 132 [employer] [place] [address] Mariano Patel MD [address] [place] [address] 12/03/2023 3:00 PM EDT Office Visit Dermatology [address] [place] [address] Sheryl Pena PA-C [address] [place] [address] [place] [address] 12/08/2023 1:00 PM EDT Office Visit Ophthalmology, [facility] 132 [employer] [place] [address] Romel Mcclelland, [address] [address] 01/06/2024 1:30 PM EDT Cardiac Studies Cardiology [address] [place] [address] [facility] [address] [place] [address] 03/30/2024 3:40 PM EDT Office Visit Family Medicine [address] [place] [address] Verónica Benavides MD [address] [place] [address] [place] [address] Health Maintenance Due Date Last Done Comments Zoster Vaccines (1 of 2) 1985 Hepatitis B (1 of 3 - Risk 3-dose series) 1995 DXA Scan 04/02/2020 04/02/2017, 0511/2012, 11/05/2007 Depression [...] Additional history exists CKD PHOS USE SMARTSET 83456 02/08/202401/23, 08/07/2021, 11/09/2019, Additional history exists TSH [...] Documents on File Type Date Recorded 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 Communication Josselyn Judd Adult Child Health Care Power of Attor nathalie Care Teams Refrigeration Person Relationship Specialty Start Date End Date Verónica Benavides MD [address] [place] [address] [place] [phone] PCP - General Family Medicine 09/16/14 documented as of this encounter
--- OUTSIDE RECORDS SUMMARY | 2023-12-10 00:39 | External Medical Summary | Summary of Care ---
Author Name Unknown Organization [facility] Address [address] [place] [address] Phone [phone] Care Team Providers Care Global Sales Executive Name Role Phone Verónica Benavides MD Primary Care Provide r Reason for Visit * Reason Onset Date Comments [facility]: Maintenance 09/06/2023 Encounter Details Date Type Department Care Team ([facility] st Contact Info) Description 09/06/2023 11:30 AM EST Scheduled Telephone [facility], [facility] [address] [place] [address] [facility], Nurse [facility] [address] [place] [address] Allergies Active Allergy Reactions Criticality Noted Date Comments Adhesive Tape Medium 01/30/2022 Ibuprofen Hives 01/13/2012 Aspirin Hives,Rash 09/15/2000 Sulfamethoxazole-Trimeth oprim Nausea/vomiting,Othe r (Please comment) 10/27/2020 Dizziness Ciprofloxacin Hcl 06/16/2019 Hoarse, dizzy,disoriented Morphine 09/21/2021 Blacked out Penicillins Hives,Rash 09/15/2000 Prednisone 12/30/2017 Weakness/memory changes/blurred vision documented as of this encounter (statuses as of 09/06/2023) Medications Medication Sig Dispensed Refills Start Date [...] in the morning. 0 08/08/2021 Active Nystatin 944486 UNIT/GM External Powder (Nystop)Indications: Lydia rash of [...] XL)Indications:Non-i schemic cardiomyopathy (HCC),Coronary artery disease involving [place] coronary artery of [place] heart without angina pectoris,HTN, goal below 140/90 [...] current use of insulin ([facility]),Type 2 diabetes mellitus with hemoglobin A1c goal of less than 8.0% ([facility]) TEST UP TO FOUR TIMES DAILY [...] Tablet 3 07/08/2023 Active OneTouch Delica Plus [id number] :Type 2 diabetes mellitus with hemoglobin A1c goal of less than 8.0% ([facility]) Test up to two times daily or as directed by [facility] pharmacist 200 Each 3 07/11/2023 Active Torsemide 20 MG Oral Tablet (Demadex)Indications :Heart failure, systolic, due to idiopathic cardiomyopathy ([facility]) Take 60 mg by mouth in [...] as of this encounter (statuses as of 09/06/2023) Active Problems Problem Noted Date Diagnosed Date [...] 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 Last Assessment & Plan: [facility] Triage Call: Reviewed last C&S [...] Continue synthroid Coronary artery disease invo lving [place] coronary artery of [place] heart without angina pectoris 07/03/2012 Overview: 60% [...] as of this encounter (statuses as of 09/06/2023) Resolved Problems Problem Noted Date Diagnosed Date [...] as of this encounter (statuses as of 09/06/2023) Immunizations Name Administration Dates Next Due COVID-19 mRNA, LNP-s, No Pre serve, 2-Dose Series ([employer]) 08/29/2021,10/23/2020,10/02/2020 COVID-19, MRNA-LNP, 23-24, P F, 30 MCG/0.3 mL, 12 YRS AND ABOVE, IM ([facility]) 08/04/2023 Covid-19, Mrna, Lnp-s, Pf, B ivalent, 30 Mcg, IM, 12 yrs and above (Pfizer) 08/02/2022 Pneumococcal Conjugate Vacc, 13 Valent (Prevnar) 09/11/2015 Pneumococcal Polysaccharide PPV23 (Pneumovax) 05/25/2008,06/23/2001 Season Influenza, Quad, PF, Adjuvanted, 65+ Yrs, IM ([employer]UAD) 06/06/2020 Seasonal Influenza Virus Vac cine, Unspecified Formulation 06/04/2019,04/30/2018,06/05/2017,05/25,05/23/2017,08/12/2016,04/22/2014 ,05/17/2013,04/29/2012,06/21/2011,1010/2009,05/31/2009,07/01/2008, 7,08/08/2006,06/21/2005,07/05/2003,06/2002,06/23/2001,08/07/2000 Seasonal Influenza, PF, 6 M & [...] encounter Miscellaneous Notes * Telephone Encounter - Tali Patel RN - 09/06/2023 3:56 PM EST Images from the original note were not included. [facility] Telephonic Nurse Follow-Up Call [facility] Subprogram: Primary Care at Home [...] May need ABX change [facility] send to [facility] if [facility] ABX is required Sending to urology also per DTR request Disposition: Follow up call scheduled for tomorrow with FORK REPAIRER Corrective And Manual Arts Therapist Future Visits Scheduled: Future Appointments-next 60 days Date/Time Provider Specialty Dept Phone 09/10/2023 2:00 PM Destiny Schultz RN [facility] [phone] 10/08/2023 1:30 PM Chandler Pena MD Urology [phone] 10/22/2023 2:00 PM (Arrive by 1:45 PM) Mariano Patel MD Cardiology [phone] 12/03/2023 3:00 PM (Arrive by 2:45 PM) Sheryl Pena PA-C Dermatology [phone] 12/08/2023 1:00 PM Romel Mcclelland DO Ophthalmology [phone] 01/06/2024 1:30 PM (Arrive by 1:15 PM) [facility] Cardiology [phone] 03/30/2024 3:40 PM (Arrive by 3:25 PM) Verónica Benavides MD Family Medicine [phone] Tali Patel RN documented in this encounter Plan of Treatment Upcoming Encounters Date Type Department Care Team (Late st Contact Info) Description 09/10/2023 2:00 PM EST [facility] Visit [facility], [facility] 132 [facility] [place] [address] Destiny Schultz RN 132 [facility] [place] [address] 10/08/2023 1:30 PM EST Telemedicine Urology, [facility] 132 [facility] [place] [address] Chandler Pena MD 27 [facility] 270 [place] [address] 10/22/2023 2:00 PM EST Office Visit Cardiology, [facility] 132 [facility] [place] [address] Mariano Patel MD [address] [place] [address] 12/03/2023 3:00 PM EDT Office Visit Dermatology [address] [place] [address] Sheryl Pena PA-C [address] [place] [address] [place] [address] 12/08/2023 1:00 PM EDT Office Visit Ophthalmology, [facility] 132 [facility] [address] Romel Mcclelland T, DO [address] [place] [address] 01/06/2024 1:30 PM EDT Cardiac Studies Cardiology [address] [place] [address] [facility] 132 [facility] [place] [address] 03/30/2024 3:40 PM EDT Office Visit Family Medicine [address] [place] [phone] Verónica Benavides MD [address] [place] [address] [place] [address] Health Maintenance Due Date Last Done Comments [...] Additional history exists CKD PHOS USE SMARTSET 09620 02/08/202401/23, 08/07/2021, 11/09/2019, Additional history exists TSH 03/25/2024 03/25/2023, 07/0 10/2022, 10/28/2022, Additional history exists CKD HGB USE SMARTSET 48263 05/26/202405/26, 05/26/2023, 04/07/2023, Additional history exists Pneumococcal [...] Documents on File Type Date 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
--- OUTSIDE RECORDS SUMMARY | 2023-12-10 00:39 | External Medical Summary | Summary of Care ---
Author Name Unknown Organization [facility] Address [address] [place] [address] Phone [phone] Care Team Providers Care Manager Switch Name Role Phone Verónica Benavides MD Primary Care Provide r Encounter Details Date Type Department Care Team (Late st Contact Info) Description 09/05/2023 Telephone Urology Jhon Zayas [address] [place] [address] [place] [address] Chandler Pena MD [address] [place] [address] [place] [address] Allergies Active Allergy Reactions Criticality Noted Date Comments Adhesive Tape Medium 01/30/2022 Ibuprofen Hives 01/13/2012 Aspirin Hives,Rash 09/15/2000 Sulfamethoxazole-Trimeth oprim Nausea/vomiting,Othe r (Please comment) 10/27/2020 Dizziness Ciprofloxacin Hcl 06/16/2019 Hoarse, dizzy,disoriented Morphine 09/21/2021 Blacked out Penicillins Hives,Rash 09/15/2000 Prednisone 12/30/2017 Weakness/memory changes/blurred vision documented as of this encounter (statuses as of 09/05/2023) Medications Medication Sig Dispensed Refills Start Date [...] in the morning. 0 08/08/2021 Active Nystatin 003173 UNIT/GM External Powder (Nystop)Indications: Lydia rash of [...] XL)Indications:Non-i schemic cardiomyopathy (HCC),Coronary artery disease involving [place] coronary artery of [place] heart without angina pectoris,HTN, goal below 140/90 [...] of insulin ([facility]),Type 2 diabetes mellitus with hemoglobin A1c [...] Tablet 3 07/08/2023 Active OneTouch Delica Plus [id number] :Type 2 diabetes mellitus with hemoglobin A1c goal of less than 8.0% ([facility]) Test up to two times daily or as directed by 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 Last Assessment & Plan: [facility] Triage Call: Reviewed last C&S [...] Continue synthroid Coronary artery disease invo lving [place] coronary artery of [place] heart without angina pectoris 07/03/2012 Overview: 60% [...] as of this encounter (statuses as of 09/05/2023) Resolved Problems Problem Noted Date Diagnosed Date [...] as of this encounter (statuses as of 09/05/2023) Immunizations Name Administration Dates Next Due COVID-19 mRNA, LNP-s, No Pre serve, 2-Dose Series ([employer]) 08/29/2021,10/23/2020,10/02/2020 COVID-19, MRNA-LNP, 23-24, P F, 30 MCG/0.3 mL, 12 YRS AND ABOVE, IM ([employer]) 08/04/2023 Covid-19, Mrna, Lnp-s, Pf, B ivalent, [...] Care Team (Late st Contact Info) Description 09/06/2023 11:30 AM EST Scheduled Telephone [facility] [address] [place] [address] [facility], Nurse [facility] [address] [place] [address] 09/10/2023 2:00 PM EST [facility] Visit [facility] [address] [place] [address] Destiny Schultz, POPPY [address] [place] [address] 10/08/2023 1:30 PM EST Telemedicine Urology, [facility] [address] [place] [address] Chandler Pena MD 27 [facility] [address] [place] [address] 10/22/2023 2:00 PM EST Office Visit Cardiology, [address] [place] [address] Mariano Patel MD [address] [place] [address] 12/03/2023 3:00 PM EDT Office Visit Dermatology [address] [place] [address] Sheryl Pena PA-C [address] [place] [address] [place] [address] 12/08/2023 1:00 PM EDT Office Visit Ophthalmology, [address] [place] [address] Romel Mcclelland T, [address] [address] 01/06/2024 1:30 PM EDT Cardiac Studies Cardiology [address] [place] [address] [facility] 132 [facility] [place] [address] 03/30/2024 3:40 PM EDT Office Visit Family Medicine [address] [place] [phone] Verónica Benavides MD [address] [place] [address] [place] [address] Health Maintenance Due Date Last Done Comments [...] Additional history exists CKD PHOS USE SMARTSET 40375 02/08/202401/23, 08/07/2021, 11/09/2019, Additional history exists TSH 03/25/2024 03/25/2023, 07/0 10/2022, 10/28/2022, Additional history exists CKD HGB USE SMARTSET 42547 05/26/202405/26, 05/26/2023, 04/07/2023, Additional history exists Pneumococcal [...] Documents on File Type Date Recorded Patient 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
--- OUTSIDE RECORDS SUMMARY | 2023-12-10 00:39 | External Medical Summary | Summary of Care ---
Author Name Unknown Organization [facility] Address [address] [place] [address] Phone [phone] Care Team Providers Care Computer Support Technician Name Role Phone Verónica Benavides MD Primary Care Provide r Reason for Visit * Reason Onset Date Comments [facility]: Maintenance 09/05/2023 Encounter Details Date Type Department Care Team ([facility] st Contact Info) Description 09/05/2023 2:00 PM EST Scheduled Telephone [facility], [facility] 132 [facility] [place] [address] Coordinator, [facility] 132 [facility] [place] [address] Allergies Active Allergy Reactions Criticality Noted Date [...] in the morning. 0 08/08/2021 Active Nystatin 600582 UNIT/GM External Powder (Nystop)Indications: Lydia rash of [...] XL)Indications:Non-i schemic cardiomyopathy (HCC),Coronary artery disease involving [place] coronary artery of [place] heart without angina pectoris,HTN, goal below 140/90 [...] disease, without long-term current use of insulin ([facility]),Type 2 diabetes mellitus with hemoglobin A1c goal of less than 8.0% ([facility]) TEST UP TO FOUR TIMES [...] Tablet 3 07/08/2023 Active OneTouch Delica Plus [id number] :Type 2 diabetes mellitus with hemoglobin A1c goal of less than 8.0% ([facility]) Test up to two times daily or as directed by [facility] pharmacist 200 Each 3 07/11/2023 Active Torsemide 20 MG Oral Tablet (Demadex)Indications :Heart failure, systolic, due to idiopathic cardiomyopathy ([facility]) Take 60 mg by mouth [...] 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 Aware a follow up call is scheduled for tomorrow to check for final urine culture result, advised to call [facility] if her mother's condition changes or worsens. Briseyda Rich underground conduit installerDevelopment Lead [facility] * Telephone Encounter - Mak Chaudhari DO - 09/05/2023 3:36 PM EST [facility] Subprogram: Primary Care at Home Recommendations: Known colonization with Klebsiella species, so I would wait for a final culture to see if it is anything different, especially since her only symptoms is being "off" unless there is additional objective changes like low BP, tachycardia, fever, etc. Orders: No orders of the defined types were placed in this encounter. To Do: Please see below for follow up items to be completed and correspondence: FYI to Regla's Care Team bridge builder Pool please work on the following: contact the caller with advice and orders as above Mak Chaudhari DO [facility] 09/05/2023 Scheduled appointments in the next 60 days: Future Appointments-next 60 days Date/Time Provider Specialty Dept Phone 09/06/2023 11:30 AM [facility], Nurse [facility] [place] [phone] 09/10/2023 2:00 PM Destiny Schultz RN [facility] [phone] 10/08/2023 1:30 PM Chandler Pena MD Urology [phone] 10/22/2023 2:00 PM (Arrive by 1:45 PM) Mariano Patel MD Cardiology [phone] 12/03/2023 3:00 PM (Arrive by 2:45 PM) Sheryl Pena PA-C Dermatology [phone] 12/08/2023 1:00 PM Romel Mcclelland DO Ophthalmology [phone] 01/06/2024 1:30 PM (Arrive by 1:15 PM) [facility] Cardiology [phone] 03/30/2024 3:40 PM (Arrive by 3:25 PM) Verónica Benavides MD Family Medicine [phone] * Telephone Encounter - Briseyda Rich RN - 09/05/2023 2:11 PM EST Images from the original note were not included. [facility] Telephonic Nurse Follow-Up Call [facility] Subprogram: Primary Care at Home Follow Up Call Type: Routine follow up call / Status Check Acute issue requiring follow-up call: Other: follow up on urine culture Objective: 07/29/2023 2:56 PM 06/26/2023 3:50 PM [...] 09/01/2023 QUANT URINE CULTURE GROWTH >100,000 colonies/mL Gram negative bacilli (A) 09/01/2023 No results found for: "WBC [...] made during acute episode Subjective: Condition Status: No change in symptoms Current Concerns: Called and spoke with daughter / Josselyn, she stated her mother is about the same. Her behavior is "off" and she feels weak. Daughter did state that her mother has been taking Macrobid twice a day since the end of June. Informed daughter that Urine Culture Preliminary result is resulted in chart , but no sensitivitiesyet. Another follow up call scheduled for tomorrow to check on final culture results. Disposition: Routed to [facility] and/or [facility] Care Team for further advice Future Visits Scheduled: Future Appointments-next 60 days Date/Time Provider Specialty Dept Phone 09/10/2023 2:00 PM Destiny Schultz RN [facility] [phone] 10/08/2023 1:30 PM Chandler Pena MD Urology [phone] 10/22/2023 2:00 PM (Arrive by 1:45 PM) Mariano Patel MD Cardiology [phone] 12/03/2023 3:00 PM (Arrive by 2:45 PM) Sheryl Pena PA-C Dermatology [phone] 12/08/2023 1:00 PM Romel Mcclelland, DO Ophthalmology [phone] 01/06/2024 1:30 PM (Arrive by 1:15 PM) [facility] Cardiology [phone] 03/30/2024 3:40 PM (Arrive by 3:25 PM) Verónica Benavides MD Family Medicine [phone] Briseyda Rich underground conduit installerDevelopment Lead [facility] documented in this encounter Plan of Treatment Upcoming Encounters Date Type Department Care Team (Late st Contact Info) Description 09/06/2023 11:30 AM EST Scheduled Telephone [facility], [facility] 132 [facility] [place] [address] [facility], Nurse [facility] 132 [facility] [place] [address] 09/10/2023 2:00 PM EST Home Visit [facility], [facility] 132 [facility] [place] [address] Destiny Schultz, POPPY 132 [facility] [place] [address] 10/08/2023 1:30 PM EST Telemedicine Urology, [facility] 132 [facility] [place] [address] Chandler Pena MD 27 [facility] [address] [place] [address] 10/22/2023 2:00 PM EST Office Visit Cardiology, [facility] 132 [facility] [place] [address] Mariano Patel MD [address] [place] [address] 12/03/2023 3:00 PM EDT Office Visit Dermatology [address] [place] [address] Sheryl Pena PA-C [address] [place] [address] [place] [address] 12/08/2023 1:00 PM EDT Office Visit Ophthalmology, [facility] 132 [facility] [place] [address] Romel Mcclelland T, DO 16 [place] [address] 01/06/2024 1:30 PM EDT Cardiac Studies Cardiology [address] [place] [address] [facility] 132 [facility] [place] [address] 03/30/2024 3:40 PM EDT Office Visit Family Medicine [address] [place] [phone] Verónica Benavides MD [address] [place] [address] [place] [address] Health Maintenance Due Date Last Done Comments [...] Additional history exists CKD PHOS USE SMARTSET 52767 02/08/202401/23, 08/07/2021, 11/09/2019, Additional history exists TSH 03/25/2024 03/25/2023, 0710/2022, 10/28/2022, Additional history exists CKD HGB USE SMARTSET 51184 05/26/202405/26, 05/26/2023, 04/07/2023, Additional history exists Pneumococcal [...] Documents on File Type Date Recorded Patient 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
--- OUTSIDE RECORDS SUMMARY | 2023-12-10 00:39 | External Medical Summary | Summary of Care ---
Author Name Unknown Organization [facility] Address [address] [place] [address] Phone [phone] Care Team Providers Care Product/Industry Consultant Name Role Phone Verónica Benavides MD Primary Care Provide r Reason for Visit * Reason Onset Date Comments [facility]: Maintenance 09/06/2023 Encounter Details Date Type Department Care Team ([facility] st Contact Info) Description 09/06/2023 11:30 AM EST Scheduled Telephone [facility], [facility] [address] [place] [address] [facility], Nurse [facility] [address] [place] [address] Allergies Active Allergy Reactions Criticality Noted Date [...] in the morning. 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 Last Assessment & Plan: [facility] Triage Call: Reviewed last C&S - [...] mRNA, LNP-s, No Pre serve, 2-Dose Series (LLLer) 08/29/2021,10/23/2020,10/02/2020 COVID-19, MRNA-LNP, 23-24, P F, 30 MCG/0.3 mL, 12 YRS AND ABOVE, IM ([facility]) 08/04/2023 Covid-19, Mrna, Lnp-s, Pf, B [...] encounter Miscellaneous Notes * Telephone Encounter - Abilio Mora MD - 09/06/2023 6:41 PM EST Abx just sent to pharmacy yesteraday afternoon at 4:30, only 24 hrs into tx, I'd cont current regimen for now, sensitive to cephalosporins (pansensitive) * Telephone Encounter - Tali Patel RN - 09/06/2023 3:56 PM EST Images from the original note were not included. [facility] Telephonic Nurse Follow-Up Call [facility] Subprogram: Primary Care at Home Follow [...] May need ABX change Please send to [facility] if new ABX is required Sending to urology also per DTR request Disposition: Follow up call scheduled for tomorrow with RACE CAR DRIVER Account Associate Future Visits Scheduled: Future Appointments-next 60 days Date/Time Provider Specialty Dept Phone 09/10/2023 2:00 PM Destiny Schultz RN [facility] [phone] 10/08/2023 1:30 PM Chandler Pena MD Urology [phone] 10/22/2023 2:00 PM (Arrive by 1:45 PM) Mariano Patel MD Cardiology [phone] 12/03/2023 3:00 PM (Arrive by 2:45 PM) Sheryl Pena PA-C Dermatology [phone] 12/08/2023 1:00 PM Romel Mcclelland, DO Ophthalmology [phone] 01/06/2024 1:30 PM (Arrive by 1:15 PM) [facility] Cardiology [phone] 03/30/2024 3:40 PM (Arrive by 3:25 PM) Verónica Benavides MD Family Medicine [phone] Tali Patel, RN documented in this encounter Plan of Treatment Upcoming Encounters Date Type Department Care Team (Late st Contact Info) Description 09/10/2023 2:00 PM EST Home Visit [facility], [facility] 132 [facility] [place] [address] Destiny Schultz RN 132 [facility] [place] [address] 10/08/2023 1:30 PM EST Telemedicine Urology, [facility] 132 [facility] [address] Chandler Pena MD [address] [facility] [address] [place] [address] 10/22/2023 2:00 PM EST Office Visit Cardiology, [facility] 132 [facility] [place] [address] Mariano Patel MD [address] [facility] [address] 12/03/2023 3:00 PM EDT Office Visit Dermatology [address] [place] [address] Sheryl Pena PA-C [address] [place] [address] [place] [address] 12/08/2023 1:00 PM EDT Office Visit Ophthalmology, [facility] 132 [facility] [place] [address] Romel Mcclelland, DO 16 [place] [address] 01/06/2024 1:30 PM EDT Cardiac Studies Cardiology [address] [place] [address] [place] [address] [place] [address] 03/30/2024 3:40 PM EDT Office Visit Family Medicine [address] [place] [phone] Verónica Benavides MD [address] [place] [address] [place] [address] Health Maintenance Due Date Last Done Comments [...] Additional history exists CKD PHOS USE SMARTSET 69446 02/08/2024 0601/2023, 08/07/2021, 11/09/2019, Additional history exists TSH 03/25/2024 03/25/2023, 07/0 10/2022, 10/28/2022, Additional history exists CKD HGB USE SMARTSET 29157 05/26/202405/26, 05/26/2023, 04/07/2023, Additional history exists Pneumococcal [...] Documents on File Type Date Recorded Patient Bowl Attendant Expl anation Advance Directives and Living Will 08/10/2021 ADVANCE DIRECTIVE / LIVING WILL LIVING WILL Healthcare Agents on File Name Relationship Healthcare Agent [facility] p Communication Josselyn Judd Adult Child Health Care Power of Attor nathalie Care Teams Product/Industry Consultant Relationship Specialty Start Date End Date Verónica Benavides MD [address] [place] [address] [place] [phone] PCP - General Family Medicine 09/16/14 documented as of this encounter
--- OUTSIDE RECORDS SUMMARY | 2023-12-10 00:40 | External Medical Summary | Summary of Care ---
Author Name Unknown Organization [facility] Address [address] [place] [address] Phone [phone] Care Team Providers Care Websphere Commerce Architect Name Role Phone Verónica Benavides MD Primary Care Provide r Reason for Visit * Reason Onset Date Comments Follow Up 09/01/2023 Encounter Details Date Type Department Care Team (Late st Contact Info) Description 09/01/2023 Telephone [facility], [facility] [address] [facility] [address] [facility] [place] [address] Destiny Schultz RN [address] [facility] [address] [facility] [place] [address] Follow Up Allergies Active Allergy Reactions Criticality Noted Date Comments Adhesive Tape Medium 01/30/2022 Ibuprofen Hives 01/13/2012 Aspirin Hives,Rash 09/15/2000 Sulfamethoxazole-Trimeth oprim Nausea/vomiting,Othe r (Please comment) 10/27/2020 Dizziness Ciprofloxacin Hcl 06/16/2019 Hoarse, dizzy,disoriented Morphine 09/21/2021 Blacked out Penicillins Hives,Rash 09/15/2000 Prednisone 12/30/2017 Weakness/memory changes/blurred vision documented as of this encounter (statuses as of 09/01/2023) Medications Medication Sig Dispensed Refills Start Date [...] in the morning. 0 08/08/2021 Active Nystatin 233217 UNIT/GM External Powder (Nystop)Indications: Lydia rash of [...] XL)Indications:Non-i schemic cardiomyopathy (HCC),Coronary artery disease involving [place] coronary artery of [place] heart without angina pectoris,HTN, goal below 140/90 [...] Tablet 3 07/08/2023 Active OneTouch Delica Plus [id number] :Type 2 diabetes mellitus with hemoglobin A1c goal of less than 8.0% ([facility]) Test up to two times daily or as directed by [facility] pharmacist 200 Each 3 07/11/2023 Active Torsemide 20 MG Oral Tablet (Demadex)Indications :Heart failure, systolic, due to idiopathic cardiomyopathy ([facility]) Take 60 mg by mouth [...] as of this encounter (statuses as of 09/01/2023) Active Problems Problem Noted Date Diagnosed Date [...] 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 Last Assessment & Plan: [facility] Triage Call: Reviewed last C&S [...] Continue synthroid Coronary artery disease invo lving [place] coronary artery of [place] heart without angina pectoris 07/03/2012 Overview: 60% [...] as of this encounter (statuses as of 09/01/2023) Resolved Problems Problem Noted Date Diagnosed Date [...] as of this encounter (statuses as of 09/01/2023) Immunizations Name Administration Dates Next Due COVID-19 mRNA, LNP-s, No Pre serve, 2-Dose Series ([employer]) 08/29/2021,10/23/2020,10/02/2020 COVID-19, MRNA-LNP, 23-24, P F, 30 [...] encounter Miscellaneous Notes * Telephone Encounter - Destiny Schultz RN - 09/01/2023 11:46 AM EST Re[facility] a [facility] stating a urine has been dropped off for patient. Daughter feels as though patient is getting more stubborn, a little more tired, and a bit more confused. Taking Macrobid BID. She feels as though her urine needs to be tested. TT to Brandt Santacruz PA-C- order for UA C&S placed. Daughter made aware to call [facility] with concerns before dropping off urine at clinic. documented in this encounter Plan of Treatment Upcoming Encounters Date Type Department Care Team (Late st Contact Info) Description 09/02/2023 12:30 PM EST Home Visit [facility] 132 [facility] [place] [address] Destiny Schultz RN 132 [facility] [place] [address] 10/08/2023 1:30 PM EST Telemedicine Urology, [facility] 132 [facility] [place] [address] Chandler Pena MD [address] [address] [place] [address] 10/22/2023 2:00 PM EST Office Visit Cardiology, [facility] 132 [facility] [place] [address] Mariano Patel MD [address] [place] [address] 12/03/2023 3:00 PM EDT Office Visit Dermatology [address] [place] [address] Sheryl Pena PA-C [address] [place] [address] [place] [address] 12/08/2023 1:00 PM EDT Office Visit Ophthalmology, [facility] [address] [place] [address] Romel Mcclelland, DO [address] [place] [address] 01/06/2024 1:30 PM EDT Cardiac Studies Cardiology [address] [place] [address] Aleta Abel [facility] 132 [facility] [place] [address] 03/30/2024 3:40 PM EDT Office Visit Family Medicine [address] [place] [phone] Verónica Benavides MD [address] [place] [address] [place] [address] Pending Results Name Type Priority Associated Diagnoses Date /Time URINALYSIS, REFLEX TO CULTURE (NOT FOR NEUTROPENIC PATIENTS) Lab Routine Confusion 09/01/2023 11:59 AM EST Scheduled Orders Name Type Priority Associated Diagnoses Orde r Schedule URINALYSIS, REFLEX TO CULTURE (NOT FOR NEUTROPENIC PATIENTS) Lab Routine Confusion Expected: 09/01/2023, Expires: 09/01/2024 Health Maintenance Due Date Last Done Comments [...] Additional history exists CKD PHOS USE SMARTSET 93242 02/08/202401/23, 08/07/2021, 11/09/2019, Additional history exists TSH 03/25/2024 03/25/2023, 07/0 10/2022, 10/28/2022, Additional history exists CKD HGB USE SMARTSET 58881 05/26/202405/26, 05/26/2023, 04/07/2023, Additional history exists Pneumococcal [...] as of this encounter Visit Diagnoses Diagnosis Confusion- Primary Unspecified psychosis documented in this encounter Advance Directives Documents on File Type Date Recorded Patient Crocheter Hand Expl anation Advance Directives and Living Will 08/10/2021 ADVANCE DIRECTIVE / LIVING WILL LIVING WILL Healthcare Agents on File Name Relationship Healthcare Agent Relationshi p Communication Josselyn Judd Adult Child Health Care Power of Attor nathalie Care Teams Websphere Commerce Architect Relationship Specialty Start Date End Date Verónica Benavides MD [address] [place] [address] [place] [address] PCP - General Family Medicine 09/16/14 documented as of this encounter
--- OUTSIDE RECORDS SUMMARY | 2023-12-10 00:40 | External Medical Summary | Summary of Care ---
Author Name Unknown Organization [facility] Address [address] [place] [address] Phone [phone] Care Team Providers Care Livestock Counter Name Role Phone Verónica Benavides MD Primary Care Provide r Reason for Visit * Reason Onset Date Comments Follow Up 09/02/2023 Encounter Details Date Type Department Care Team ([facility] st Contact Info) Description 09/02/2023 12:30 PM EST Scheduled Telephone [facility], [facility] [address] [place] [address] Destiny Schultz, RN [address] [facility] [place] [address] Allergies Active Allergy Reactions Criticality Noted Date Comments Adhesive Tape Medium 01/30/2022 Ibuprofen Hives 01/13/2012 Aspirin Hives,Rash 09/15/2000 Sulfamethoxazole-Trimeth oprim Nausea/vomiting,Othe r (Please comment) 10/27/2020 Dizziness Ciprofloxacin Hcl 06/16/2019 Hoarse, dizzy,disoriented Morphine 09/21/2021 Blacked out Penicillins Hives,Rash 09/15/2000 Prednisone 12/30/2017 Weakness/memory changes/blurred vision documented as of this encounter (statuses as of 09/02/2023) Medications Medication Sig Dispensed Refills Start Date [...] in the morning. 0 08/08/2021 Active Nystatin 060714 UNIT/GM External Powder (Nystop)Indications: Lydia rash of [...] XL)Indications:Non-i schemic cardiomyopathy (HCC),Coronary artery disease involving [place] coronary artery of [place] heart without angina pectoris,HTN, goal below 140/90 [...] Tablet 3 07/08/2023 Active OneTouch Delica Plus [id number] :Type 2 diabetes mellitus with hemoglobin A1c goal of less than 8.0% ([facility]) Test up to two times daily or as directed by [facility] pharmacist 200 Each 3 07/11/2023 Active [...] as of this encounter (statuses as of 09/02/2023) Active Problems Problem Noted Date Diagnosed Date [...] 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 Last Assessment & Plan: [facility] Triage Call: Reviewed last C&S - [...] Continue synthroid Coronary artery disease invo lving [place] coronary artery of [place] heart without angina pectoris 07/03/2012 Overview: 60% [...] as of this encounter (statuses as of 09/02/2023) Resolved Problems Problem Noted Date Diagnosed Date [...] as of this encounter (statuses as of 09/02/2023) Immunizations Name Administration Dates Next Due COVID-19 mRNA, LNP-s, No Pre serve, 2-Dose Series (Mult[employer]) 08/29/2021,10/23/2020,10/02/2020 COVID-19, MRNA-LNP, 23-24, P F, 30 MCG/0.3 mL, 12 YRS AND ABOVE, IM ([employer]) 08/04/2023 Covid-19, Mrna, Lnp-s, Pf, B ivalent, [...] Telephone Encounter - Destiny Schultz RN - 09/02/2023 11:53 AM EST Phone call to daughter- no visit made today d/t weather. Per Josselyn- patient behavior is off- she is refusing shower. Nasty with family/caregivers. Weights/blood sugars stable- doesn't feel visit isnecessary as we are waiting on urine results which is the main concern. Rescheduled for next week- Josselyn is aware. Encouraged to call with worsening symptoms. Voices understanding. documented in this encounter Plan of Treatment Upcoming Encounters Date Type Department Care Team (Late st Contact Info) Description 09/10/2023 2:00 PM EST Home Visit [facility] 132 [facility] [place] [address] Destiny Schultz RN 132 [facility] [place] [address] 10/08/2023 1:30 PM EST Telemedicine Urology, [facility] 132 [facility] [place] [address] Chandler Pena MD [address] [address] [place] [address] 10/22/2023 2:00 PM EST Office Visit Cardiology, [facility] 132 [facility] [place] [address] Mariano Patel MD [address] [place] [address] 12/03/2023 3:00 PM EDT Office Visit Dermatology [address] [place] [address] Sheryl Pena PA-C [address] [place] [address] [place] [address] 12/08/2023 1:00 PM EDT Office Visit Ophthalmology, [facility] 132 [facility] [place] [address] Romel Mcclelland, DO [address] [place] [address] [place] [address] 01/06/2024 1:30 PM EDT Cardiac Studies Cardiology [address] [place] [address] Aleta Abel [facility] 132 [facility] [place] [address] 03/30/2024 3:40 PM EDT Office Visit Family Medicine [address] [place] [phone] Verónica Benavides MD [address] [place] [address] [place] [address] Health Maintenance Due Date Last Done Comments [...] Additional history exists CKD PHOS USE SMARTSET 84361 02/08/202401/23, 08/07/2021, 11/09/2019, Additional history exists TSH 03/25/2024 03/25/2023, 10/2022, 10/28/2022, Additional history exists CKD HGB USE SMARTSET 73169 05/26/202405/26, 05/26/2023, 04/07/2023, Additional history exists Pneumococcal [...] Documents on File Type Date Recorded Patient Assistant Manager/Embalmer Expl anation Advance Directives and Living Will 08/10/2021 ADVANCE DIRECTIVE / LIVING WILL LIVING WILL Healthcare Agents on File Name Relationship Healthcare Agent [facility] Communication Josselyn Judd Adult Child Health Care Power of Attor nathalie Care Teams Livestock Counter Relationship Specialty Start Date End Date Verónica Benavides MD [address] [place] [address] [place] [phone] PCP - General Family Medicine 09/16/14 documented as of this encounter
--- OUTSIDE RECORDS SUMMARY | 2023-12-10 00:40 | External Medical Summary | Summary of Care ---
Author Name Unknown Organization [facility] Address [address] [place] [address] Phone [phone] Care Team Providers Care Meat Service Team Member Name Role Phone Verónica Benavides MD Primary Care Provide r Reason for Visit * Reason Comments Outpatient Testing Encounter Details Date Type Department Care Team (Late st Contact Info) Description 09/01/2023 10:30 AM EST Laboratory Laboratory [address] [place] [phone] , Specimen Drop Off [address] [place] [address] Confusion Allergies Active Allergy Reactions Criticality Noted Date [...] in the morning. 0 08/08/2021 Active Nystatin 246745 UNIT/GM External Powder (Nystop)Indications: Lydia rash of [...] XL)Indications:Non-i schemic cardiomyopathy (HCC),Coronary artery disease involving [place] coronary artery of [place] heart without angina pectoris,HTN, goal below 140/90 [...] Tablet 3 07/08/2023 Active OneTouch Delica Plus [id number] :Type 2 diabetes mellitus with hemoglobin A1c goal of less than 8.0% ([facility]) Test up to two times daily or as directed by [facility] pharmacist 200 Each 3 07/11/2023 [...] Morbid obesity with BMI of 45.0-49.9, adult 11/0 12/2020 ESBL E. 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 Last Assessment & Plan: [facility] Triage Call: Reviewed last C&S - treated [...] Continue synthroid Coronary artery disease invo lving [place] coronary artery of [place] heart without angina pectoris 07/03/2012 Overview: 60% [...] mRNA, LNP-s, No Pre serve, 2-Dose Series ([employer]) 08/29/2021,10/23/2020,10/02/2020 COVID-19, MRNA-LNP, 23-24, P F, [...] Description 09/02/2023 12:30 PM EST [facility] 132 [facility] [place] [address] Destiny Schultz RN 132 [facility] [place] [address] 10/08/2023 1:30 PM EST Telemedicine Urology, [facility] 132 [facility] [place] [address] Chandler Pena MD 27 [facility] 270 [place], [place] [address] 10/22/2023 2:00 PM EST Office Visit Cardiology, [facility] 132 [facility] [place] [address] Mariano Patel MD [address] [place] [address] 12/03/2023 3:00 PM EDT Office Visit Dermatology [address] [place] [address] Sheryl Pena PA-C [address] [place] [address] [place] [address] 12/08/2023 1:00 PM EDT Office Visit Ophthalmology, [facility] 132 [facility] [place] [address] Romel Mcclelland, DO 16 [facility], [place] [address] 01/06/2024 1:30 PM EDT Cardiac Studies Cardiology [address] [place] [address] [place] [address] [place] [address] 03/30/2024 3:40 PM EDT Office Visit Family Medicine [address] [place] [phone] Verónica Benavides MD [address] [place] [address] [place] [address] Pending Results Name Type Priority Associated Diagnoses Date /Time URINALYSIS, REFLEX TO CULTURE (NOT FOR NEUTROPENIC PATIENTS) Lab Routine Confusion 09/01/2023 11:59 AM EST URINALYSIS, REFLEX TO CULTURE (CUP ONLY) Lab Routine Confusion 09/01/2023 11:59 AM EST URINALYSIS, REFLEX TO CULTURE Lab Routine Confusion 09/01/2023 11:59 AM EST Health Maintenance Due Date Last Done Comments [...] Additional history exists CKD PHOS USE SMARTSET 25042 02/08/2024 06/1 01/2023, 08/07/2021, 11/09/2019, Additional history exists TSH 03/25/2024 03/25/2023, 07/0 10/2022, 10/28/2022, Additional history exists CKD HGB USE SMARTSET 44647 05/26/202405/26, 05/26/2023, 04/07/2023, Additional history exists Pneumococcal [...] as of this encounter Visit Diagnoses Diagnosis Confusion Unspecified psychosis documented in this encounter Advance Directives Documents on File Type Date Recorded Patient Telephone Information Clerk Expl anation Advance Directives and Living Will 08/10/2021 ADVANCE DIRECTIVE / LIVING WILL LIVING WILL Healthcare Agents on File Name Relationship Healthcare [facility] Communication Josselyn Judd Adult Child Health Care Power of Attor nathalie Care Teams Meat Service Team Member Relationship Specialty Start Date End Date Verónica Benavides MD [address] [place] [address] [place] [address] PCP - General Family Medicine 09/16/14 documented as of this encounter
--- OUTSIDE RECORDS SUMMARY | 2023-12-10 00:40 | External Medical Summary | Summary of Care ---
Author Name Unknown Organization [facility] Address [address] [place] [address] Phone [phone] Care Team Providers Care Bulb Packer Name Role Phone Verónica Benavides MD Primary Care Provide r Reason for Visit * Reason Onset Date Comments [facility]: Maintenance 09/05/2023 Encounter Details Date Type Department Care Team ([facility] st Contact Info) Description 09/05/2023 2:00 PM EST Scheduled Telephone [facility], [facility] 132 [facility] [place] [address] Coordinator, [facility] 132 [facility] [place] [address] Allergies Active Allergy Reactions Criticality Noted Date [...] in the morning. 0 08/08/2021 Active Nystatin 647823 UNIT/GM External Powder (Nystop)Indications: Lydia rash of [...] cardiomyopathy (HCC),Coronary artery disease involving [place] coronary artery of [place] heart without angina pectoris,HTN, goal below 140/90 [...] disease, without long-term current use of insulin ([facility]),Type 2 diabetes mellitus with hemoglobin A1c goal of less than 8.0% ([facility]) TEST UP TO FOUR TIMES DAILY 400 [...] Tablet 3 07/08/2023 Active OneTouch Delica Plus [id number] :Type 2 diabetes mellitus with hemoglobin A1c goal of less than 8.0% ([facility]) Test up to two times daily or as directed by [facility] pharmacist 200 Each 3 07/11/2023 Active Torsemide 20 MG Oral Tablet (Demadex)Indications :Heart failure, systolic, due to idiopathic cardiomyopathy ([facility]) Take 60 mg by mouth in the [...] Coronary artery disease invo lving [place] coronary artery of [place] heart without angina pectoris 07/03/2012 Overview: 60% [...] mRNA, LNP-s, No Pre serve, 2-Dose Series ([employer]) 08/29/2021,10/23/2020,10/02/2020 COVID-19, MRNA-LNP, 23-24, P F, 30 [...] - 09/05/2023 3:36 PM EST [facility] Prabhakar Galvez Subprogram: Primary Care at Home Recommendations: Known [...] and correspondence: FYI to Regla's Care Team cut off machine operator Pool please work on the following: contact the caller with advice and orders as above Mak Chaudhari DO [facility] - [facility] 09/05/2023 Scheduled appointments in the next 60 days: Future Appointments-next 60 days Date/Time Provider Specialty Dept Phone 09/06/2023 11:30 AM [facility], Nurse [facility] at Home [phone] 09/10/2023 2:00 PM Destiny Schultz RN [facility] [phone] 10/08/2023 1:30 PM Chandler Pena MD Urology [phone] 10/22/2023 2:00 PM (Arrive by 1:45 PM) Mariano Patel MD Cardiology [phone] 12/03/2023 3:00 PM (Arrive by 2:45 PM) Sheryl Pena PA-C Dermatology [phone] 12/08/2023 1:00 PM Romel Mcclelland DO Ophthalmology [phone] 01/06/2024 1:30 PM (Arrive by 1:15 PM) [facility] [phone] 03/30/2024 3:40 PM (Arrive by 3:25 PM) Verónica Benavides MD Family Medicine [phone] * Telephone Encounter - Briseyda Rich RN [...] on final culture results. Disposition: Routed to [facility] and/or [facility] at Home Care Team for further advice Future Visits Scheduled: Future Appointments-next 60 days Date/Time Provider Specialty Dept Phone 09/10/2023 2:00 PM Destiny Schultz RN [facility] [phone] 10/08/2023 1:30 PM Chandler Pena MD Urology [phone] 10/22/2023 2:00 PM (Arrive by 1:45 PM) Mariano Patel MD Cardiology [phone] 12/03/2023 3:00 PM (Arrive by 2:45 PM) Sheryl Pena PA-C Dermatology [phone] 12/08/2023 1:00 PM Romel Mcclelland DO Ophthalmology [phone] 01/06/2024 1:30 PM (Arrive by 1:15 PM) Aleta Abel [facility] Cardiology [phone] 03/30/2024 3:40 PM (Arrive by 3:25 PM) Verónica Benavides MD Family Medicine [phone] Briseyda Rich RN Chlorine Operator [facility] documented in this encounter Plan of Treatment Upcoming Encounters Date Type Department Care Team (Late st Contact Info) Description 09/06/2023 11:30 AM EST Scheduled Telephone [facility], [facility] 132 [facility] [place] [address] [facility], Nurse [facility] 132 [facility] [place] [address] 09/10/2023 2:00 PM EST Home Visit [facility], [facility] 132 [facility] [place] [address] Destiny Schultz RN 132 [facility] [place] [address] 10/08/2023 1:30 PM EST Telemedicine Urology, [facility] 132 [facility] [place] [address] Chandler Pena MD 27 [facility] [address] [place] [address] 10/22/2023 2:00 PM EST Office Visit Cardiology, [facility] 132 [facility] [address] Mariano Patel MD [address] [place] [address] 12/03/2023 3:00 PM EDT Office Visit Dermatology [address] [place] [address] Sheryl Pena PA-C [address] [place] [address] [place] [address] 12/08/2023 1:00 PM EDT Office Visit Ophthalmology, [facility] 132 [facility] [place] [address] Romel Mcclelland T, DO [address] [place] [address] 01/06/2024 1:30 PM EDT Cardiac Studies Cardiology [address] [place] [address] [facility] [address] [place] [address] 03/30/2024 3:40 PM EDT Office Visit Family Medicine [address] [place] [phone] Verónica Benavides MD [address] [place] [address] [place] [address] Health Maintenance Due Date Last Done Comments [...] Additional history exists CKD PHOS USE SMARTSET 30514 02/08/202401/23, 08/07/2021, 11/09/2019, Additional history exists TSH 03/25/2024 03/25/2023, 07/0 10/2022, 10/28/2022, Additional history exists CKD HGB USE SMARTSET 29261 05/26/202405/26, 05/26/2023, 04/07/2023, Additional history exists Pneumococcal [...] Documents on File Type Date Recorded 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
--- OUTSIDE RECORDS SUMMARY | 2023-12-10 00:40 | External Medical Summary | Summary of Care ---
Author Name Unknown Organization [facility] Address [address] [place] [address] Phone [phone] Care Team Providers Care Stove Mechanic Name Role Phone Verónica Benavides MD Primary Care Provide r Reason for Visit * Reason Onset Date Comments [facility]: Maintenance 09/05/2023 Encounter Details Date Type Department Care Team ([facility] st Contact Info) Description 09/05/2023 2:00 PM EST Scheduled Telephone [facility], [facility] 132 [facility] [place] [address] Coordinator, [facility] 132 [facility] [place] [address] Allergies Active Allergy Reactions Criticality Noted Date [...] in the morning. 0 08/08/2021 Active Nystatin 334382 UNIT/GM External Powder (Nystop)Indications: Lydia rash of [...] XL)Indications:Non-i schemic cardiomyopathy (HCC),Coronary artery disease involving [place] coronary artery of [place] heart without angina pectoris,HTN, goal below 140/90 [...] long-term current use of insulin ([facility]),Type 2 diabetes mellitus with hemoglobin A1c goal of less than 8.0% ([facility]) TEST UP TO FOUR TIMES DAILY 400 [...] Tablet 3 07/08/2023 Active OneTouch Delica Plus [id number] :Type 2 diabetes mellitus with hemoglobin A1c goal of less than 8.0% ([facility]) Test up to two times daily or as directed by 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 Disposition: Routed to [facility] and/or [facility] at Home Care Team for further advice Future Visits Scheduled: Future Appointments-next 60 days Date/Time Provider Specialty Dept Phone 09/10/2023 2:00 PM Destiny Schultz RN [facility] at Home [phone] 10/08/2023 1:30 PM Chandler Pena MD Urology [phone] 10/22/2023 2:00 PM (Arrive by 1:45 PM) Mariano Patel MD Cardiology [phone] 12/03/2023 3:00 PM (Arrive by 2:45 PM) Sheryl Pena PA-C Dermatology [phone] 12/08/2023 1:00 PM Romel Mcclelland, Ophthalmology [phone] 01/06/2024 1:30 PM (Arrive by 1:15 PM) Aleta Abel [facility] Cardiology [phone] 03/30/2024 3:40 PM (Arrive by 3:25 PM) Verónica Benavides MD Family Medicine [phone] Briseyda Rich RN Division Engineer [facility] documented in this encounter Plan of Treatment Upcoming Encounters Date Type Department Care Team (Late st Contact Info) Description 09/06/2023 11:30 AM EST Scheduled Telephone [facility], [facility] 132 [facility] [place] [address] [facility], Nurse [facility] [address] [facility] [place], [place] [address] 09/10/2023 2:00 PM EST Home Visit [facility], [address] [place] [address] Destiny Schultz RN 132 [place] [address] 10/08/2023 1:30 PM EST Telemedicine Urology, [facility] 132 [place] [address] Chandler Pena MD [address] [place] [address] 10/22/2023 2:00 PM EST Office Visit Cardiology, [facility] 132 [place] [address] Mariano Patel MD [address] [place] [address] 12/03/2023 3:00 PM EDT Office Visit Dermatology [address] [place] [address] Sheryl Pena PA-C [address] [place] [address] [place] [address] 12/08/2023 1:00 PM EDT Office Visit Ophthalmology, [facility] 132 [place] [address] Romel Mcclelland T, DO [address] [place] [address] 01/06/2024 1:30 PM EDT Cardiac Studies Cardiology [address] [place] [address] Page Pacer [facility] [address] 03/30/2024 3:40 PM EDT Office Visit Family Medicine [address] [place] [phone] Verónica Benavides MD [address] [place] [address] [place] [address] Health Maintenance Due Date Last Done Comments [...] Additional history exists CKD PHOS USE SMARTSET 90649 02/08/2024 0601/2023, 08/07/2021, 11/09/2019, Additional history exists TSH 03/25/2024 03/25/2023, 07/0 10/2022, 10/28/2022, Additional history exists CKD HGB USE SMARTSET 70976 05/26/202405/26, 05/26/2023, 04/07/2023, Additional history exists Pneumococcal [...] Documents on File Type Date Recorded 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
--- OUTSIDE RECORDS SUMMARY | 2023-12-10 00:40 | External Medical Summary | Summary of Care ---
Author Name Unknown Organization [facility] Address [address] [place] [address] Phone [phone] Care Team Providers Care Line Staker Name Role Phone Verónica Benavides MD Primary Care Provide r Reason for Visit * Reason Onset Date Comments [facility]: Maintenance 09/05/2023 Encounter Details Date Type Department Care Team ([facility] st Contact Info) Description 09/05/2023 2:00 PM EST Scheduled Telephone [facility], [facility] 132 [facility] [place] [address] Coordinator, [facility] 132 [facility] [place] [address] Allergies Active Allergy Reactions Criticality Noted Date [...] in the morning. 0 08/08/2021 Active Nystatin 434374 UNIT/GM External Powder (Nystop)Indications: Lydia rash of [...] XL)Indications:Non-i schemic cardiomyopathy (HCC),Coronary artery disease involving platinum coronary artery of platinum heart without angina pectoris,HTN, goal below 140/90 [...] disease, without long-term current use of insulin ([facility]),Type 2 diabetes mellitus with hemoglobin A1c goal of less than 8.0% ([facility]) TEST UP TO FOUR TIMES [...] Tablet 3 07/08/2023 Active OneTouch Delica Plus [id number] :Type 2 diabetes mellitus with hemoglobin A1c goal of less than 8.0% ([facility]) Test up to two times daily or as directed by [facility] pharmacist 200 Each 3 07/11/2023 Active Torsemide 20 MG Oral Tablet (Demadex)Indications :Heart failure, systolic, due to idiopathic cardiomyopathy ([facility]) Take 60 mg by mouth [...] 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 Disposition: Routed to [facility] and/or [facility] at Home Care Team for further advice Future Visits Scheduled: Future Appointments-next 60 days Date/Time Provider Specialty Dept Phone 09/10/2023 2:00 PM Destiny Schutlz RN [facility] at Home [phone] 10/08/2023 1:30 PM Chandler Pena MD Urology [phone] 10/22/2023 2:00 PM (Arrive by 1:45 PM) Mariano Patel MD Cardiology [phone] 12/03/2023 3:00 PM (Arrive by 2:45 PM) Sheryl Pena PA-C Dermatology [phone] 12/08/2023 1:00 PM Romel Mcclelland, Ophthalmology [phone] 01/06/2024 1:30 PM (Arrive by 1:15 PM) Aleta Abel [facility] Cardiology [phone] 03/30/2024 3:40 PM (Arrive by 3:25 PM) Verónica Benavides MD Family Medicine [phone] Briseyda Rich RN Washerette Machine Operator [facility] documented in this encounter Plan of Treatment Upcoming Encounters Date Type Department Care Team (Late st Contact Info) Description 09/06/2023 11:30 AM EST Scheduled Telephone [facility], [facility] 132 [facility] [place] [address] [facility], Nurse [facility] 132 [facility] [place], [place] [address] 09/10/2023 2:00 PM EST Home Visit [facility], [address] [place] [address] Destiny Schultz RN 132 [place] [address] 10/08/2023 1:30 PM EST Telemedicine Urology, [facility] 132 [place] [address] Chandler Pena MD [address] [place] [address] 10/22/2023 2:00 PM EST Office Visit Cardiology, [facility] 132 [place] [address] Mariano Patel MD [address] [place] [address] 12/03/2023 3:00 PM EDT Office Visit Dermatology [address] [place] [address] Sheryl Pena PA-C [address] [place] [address] [place] [address] 12/08/2023 1:00 PM EDT Office Visit Ophthalmology, [facility] 132 [place] [address] Romel Mcclelland T, DO [address] [place] [address] 01/06/2024 1:30 PM EDT Cardiac Studies Cardiology [address] [place] [address] Page Pacer [facility] [place] [address] 03/30/2024 3:40 PM EDT Office Visit Family Medicine [address] [place] [phone] Verónica Benavides MD [address] [place] [address] [place] [address] Health Maintenance Due Date Last Done Comments [...] Additional history exists CKD PHOS USE SMARTSET 05246 02/08/2024 0601/2023, 08/07/2021, 11/09/2019, Additional history exists TSH 03/25/2024 03/25/2023, 07/0 10/2022, 10/28/2022, Additional history exists CKD HGB USE SMARTSET 22859 05/26/202405/26, 05/26/2023, 04/07/2023, Additional history exists Pneumococcal [...] Documents on File Type Date Recorded 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
--- OUTSIDE RECORDS SUMMARY | 2023-12-10 00:40 | External Medical Summary | Summary of Care ---
Author Name Unknown Organization [facility] Address [address] [place] [address] Phone [phone] Care Team Providers Care Labor And Delivery Nurse Name Role Phone Verónica Benavides MD Primary Care Provide r Reason for Visit * Reason Onset Date Comments [facility]: Maintenance 09/04/2023 Encounter Details Date Type Department Care Team ([facility] st Contact Info) Description 09/04/2023 Telephone [facility], [facility] [address] [place] [facility] [place] [address] [facility], Nurse [facility] [address] [place] [address] [facility]: Maintenance Allergies Active Allergy Reactions Criticality Noted Date Comments Adhesive Tape Medium 01/30/2022 Ibuprofen Hives 01/13/2012 Aspirin Hives,Rash 09/15/2000 Sulfamethoxazole-Trimeth oprim Nausea/vomiting,Othe r (Please comment) 10/27/2020 Dizziness Ciprofloxacin Hcl 06/16/2019 Hoarse, dizzy,disoriented Morphine 09/21/2021 Blacked out Penicillins Hives,Rash 09/15/2000 Prednisone 12/30/2017 Weakness/memory changes/blurred vision documented as of this encounter (statuses as of 09/04/2023) Medications Medication Sig Dispensed Refills Start Date [...] in the morning. 0 08/08/2021 Active Nystatin [id number] UNIT/GM External Powder (Nystop)Indications: Lydia rash of [...] XL)Indications:Non-i schemic cardiomyopathy (HCC),Coronary artery disease involving [place] coronary artery of [place] heart without angina pectoris,HTN, goal below 140/90 [...] Tablet 3 07/08/2023 Active OneTouch Delica Plus [id number] :Type 2 diabetes mellitus with hemoglobin A1c goal of less than 8.0% ([facility]) Test up to two times daily or as directed by [facility] pharmacist 200 Each 3 07/11/2023 Active Torsemide [...] as of this encounter (statuses as of 09/04/2023) Active Problems Problem Noted Date Diagnosed Date [...] Continue synthroid Coronary artery disease invo lving in[place] coronary artery of in[place] heart without angina pectoris 07/03/2012 Overview: 60% [...] as of this encounter (statuses as of 09/04/2023) Resolved Problems Problem Noted Date Diagnosed Date [...] as of this encounter (statuses as of 09/04/2023) Immunizations Name Administration Dates Next Due COVID-19 mRNA, LNP-s, No Pre serve, 2-Dose Series ([employer]) 08/29/2021,10/23/2020,10/02/2020 COVID-19, MRNA-LNP, 23-24, P F, 30 [...] encounter Miscellaneous Notes * Telephone Encounter - Johanne Licona RN - 09/04/2023 11:11 AM EST Josselyn calling. She was checking to see if the culture results were available. She said she just got a text back from POPPY Dixon and told her they were still processing. I told her we will schedule a follow up call for tomorrow to check for results. Routed to care team Johanne Licona. OPPPY [facility] RN [phone] documented in this encounter Plan of Treatment Upcoming Encounters Date Type Department Care Team (Late st Contact Info) Description 09/05/2023 2:00 PM EST Scheduled Telephone [facility], [facility] [address] [place] [address] Coordinator, [facility] 132 [place] [address] 09/10/2023 2:00 PM EST Home Visit [facility] [place], [facility] 132 [place] [address] Destiny Schultz RN [address] [place] [address] 10/08/2023 1:30 PM EST Telemedicine Urology, [facility] [address] [place] [address] Chandler Pena MD [address] [address] [place] [address] 10/22/2023 2:00 PM EST Office Visit Cardiology, [facility] 132 [place] [address] Mariano Patel MD [address] [place] [address] 12/03/2023 3:00 PM EDT Office Visit Dermatology [address] [place] [address] Sheryl Pena PA-C [address] [place] [address] [place] [address] 12/08/2023 1:00 PM EDT Office Visit Ophthalmology, [facility] 132 [facility] [place] [address] Romel Mcclelland T, DO [address] [place] [phone] 01/06/2024 1:30 PM EDT Cardiac Studies Cardiology [address] [place] [address] Aleta Abel [address] [place] [address] 03/30/2024 3:40 PM EDT Office Visit Family Medicine [address] [place] [phone] Verónica Benavides MD [address] [place] [address] [place] [address] Health Maintenance Due Date Last Done Comments [...] Additional history exists CKD PHOS USE SMARTSET 39353 02/08/202401/23, 08/07/2021, 11/09/2019, Additional history exists TSH 03/25/2024 03/25/2023, 07/0 10/2022, 10/28/2022, Additional history exists CKD HGB USE SMARTSET 35465 05/26/202405/26, 05/26/2023, 04/07/2023, Additional history exists Pneumococcal [...] Documents on File Type Date Recorded 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
--- OUTSIDE RECORDS SUMMARY | 2023-12-10 00:41 | External Medical Summary ---
Author Name Unknown Address Unknown Organization K01:LABORATORY [facility] - [address] [facility] [address] Laboratory Report Ordering Provider Test Date Status SARAH GOA 09/01/2023 11:59:27 Final Observation Date Value Abnormality Reference (Units ) Status Color of Urine by Auto 09/01/2023 11:59:27 Newcomb Abnormal Colorless, Light Yellow, Yellow, Dark Yellow Final Clarity, Urine 09/01/2023 11:59:27 Cloudy Abnormal Clear Final Glucose [Mass/volume] in Urine by Automated test strip 09/01/2023 11:59:27 Negative Negative (mg/dL) Final Bilirubin.total [Presence] in Urine by Automated test strip 09/01/2023 11:59:27 Negative Negative Final Ketones [Mass/volume] in Urine by Automated test strip 09/01/2023 11:59:27 Negative Negative (mg/dL) Final Specific gravity, Urine 09/01/2023 11:59:27 1.010 1.003-1.030 Final Hemoglobin [Presence] in Urine by Automated test strip 09/01/2023 11:59:27 Small Abnormal Negative Final pH, Urine 09/01/2023 11:59:27 6.5 5.0-7.5 (Units) Final Protein [Mass/volume] in Urine by Automated test strip 09/01/2023 11:59:27 Trace Abnormal Negative (mg/dL) Final Urobilinogen [Mass/volume] in Urine by Automated test strip 09/01/2023 11:59:27 Normal Normal (mg/dL) Final Nitrite [Presence] in Urine by Automated test strip 09/01/2023 11:59:27 Negative Negative Final Leukocyte esterase [Presence] in Urine by Automated test strip 09/01/2023 11:59:27 Large Abnormal Negative Final RBC, Urine 09/01/2023 11:59:27 10-19 Abnormal 0-2 (/HPF) Final WBC, Urine 09/01/2023 11:59:27 50+ Abnormal 0-2 (/HPF) Final Bacteria [#/area] in Urine sediment by Microscopy high power field 09/01/2023 11:59:27 151-200 Abnormal 0-25 (/HPF) Final Leukocyte clumps [#/area] in Urine sediment by Microscopy high power field 09/01/2023 11:59:27 Present Abnormal None (/HPF) Final CULTURE, URINE - [facility] 09/01/2023 11:59:27 Final Quantitative urine culture t o be performed Performing Location LABORATORY [facility] - [address] [facility] [address]
--- OUTSIDE RECORDS SUMMARY | 2023-12-10 00:41 | External Medical Summary | Summary of Care ---
Author Name Unknown Organization [facility] Address [address] [place] [address] Phone [phone] Care Team Providers Care Defense Analyst Name Role Phone Verónica Benavides MD Primary Care Provide r Reason for Visit * Reason Comments Outpatient Testing Encounter Details Date Type Department Care Team (Late st Contact Info) Description 09/01/2023 10:30 AM EST Laboratory Laboratory [address] [place] [phone] , Specimen Drop Off [address] [place] [address] Arrived Allergies Active Allergy Reactions Criticality Noted [...] in the morning. 0 08/08/2021 Active Nystatin 400148 UNIT/GM External Powder (Nystop)Indications: Lydia rash of [...] XL)Indications:Non-i schemic cardiomyopathy (HCC),Coronary artery disease involving [place] coronary artery of [place] heart without angina pectoris,HTN, goal below 140/90 [...] disease, without long-term current use of insulin ([facility]),Type 2 diabetes mellitus with hemoglobin A1c goal of less than 8.0% ([facility]) TEST UP TO FOUR TIMES DAILY [...] Tablet 3 07/08/2023 Active OneTouch Delica Plus [id number] :Type 2 diabetes mellitus with hemoglobin A1c goal of less than 8.0% ([facility]) Test up to two times daily or as directed by [facility] pharmacist 200 Each 3 07/11/2023 Active Torsemide 20 MG Oral Tablet (Demadex)Indications :Heart failure, systolic, due to idiopathic cardiomyopathy (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 Last Assessment & Plan: [facility] Triage Call: Reviewed last C&S - treated [...] Continue synthroid Coronary artery disease invo lving [place] coronary artery of [place] heart without angina pectoris 07/03/2012 Overview: 60% [...] mRNA, LNP-s, No Pre serve, 2-Dose Series ([employer]) 08/29/2021,10/23/2020,10/02/2020 COVID-19, MRNA-LNP, 23-24, P F, 30 [...] [facility], [facility] [address] [facility] [place] [address] Destiny Schultz, RN 132 [facility] [place] [address] 10/08/2023 1:30 PM EST Telemedicine Urology, [facility] [address] [place] [address] Chandler Pena MD [address] [address] [place] [address] 10/22/2023 2:00 PM EST Office Visit Cardiology, [facility] 132 [place] [address] Mariano Patel MD [address] [place] [address] 12/03/2023 3:00 PM EDT Office Visit Dermatology [address] [place] [address] Sheryl Pena PA-C [address] [place] [address] [place] [address] 12/08/2023 1:00 PM EDT Office Visit Ophthalmology, [facility] [address] [facility] [place] [address] Romel Mcclelland T, DO [address] [place] [address] 01/06/2024 1:30 PM EDT Cardiac Studies Cardiology [address] [place] [address] Page Pacer [facility] [place] [facility] 132 [facility] [place] [address] 03/30/2024 3:40 PM EDT Office Visit Family Medicine [address] [place] [phone] Verónica Benavides MD [address] [place] [address] [place] [address] Health Maintenance Due Date Last Done Comments [...] Additional history exists CKD PHOS USE SMARTSET 65404 02/08/2024 0601/2023, 08/07/2021, 11/09/2019, Additional history exists TSH 03/25/2024 03/25/2023, 07/0 10/2022, 10/28/2022, Additional history exists CKD HGB USE SMARTSET 23953 05/26/202405/26, 05/26/2023, 04/07/2023, Additional history exists Pneumococcal [...] Documents on File Type Date Recorded Patient Dough Panner Expl anation Advance Directives and Living Will 08/10/2021 ADVANCE DIRECTIVE / LIVING WILL LIVING WILL Healthcare Agents on File Name Relationship Healthcare Agent [facility] Communication Josselyn Judd Adult Child Health Care Power of Attor nathalie Care Teams Defense Analyst Relationship Specialty Start Date End Date Verónica Benavides MD [address] [place] [address] [place] [address] PCP - General Family Medicine 09/16/14 documented as of this encounter
--- OUTSIDE RECORDS SUMMARY | 2023-12-10 00:41 | External Medical Summary | Summary of Care ---
Author Name Unknown Organization [facility] Address [address] [place] [address] Phone [phone] Care Team Providers Care Heel Brusher Name Role Phone Verónica Benavides MD Primary Care Provide r Encounter Details Date Type Department Care Team (Late st Contact Info) Description 08/29/2023 Result Scan Unspecified Department Hermann Heredia, DO [address] [place] [address] <No scans attached> Allergies Active Allergy Reactions Criticality Noted Date Comments Adhesive Tape Medium 01/30/2022 Ibuprofen Hives 01/13/2012 Aspirin Hives,Rash 09/15/2000 Sulfamethoxazole-Trimeth oprim Nausea/vomiting,Othe r (Please comment) 10/27/2020 Dizziness Ciprofloxacin Hcl 06/16/2019 Hoarse, dizzy,disoriented Morphine 09/21/2021 Blacked out Penicillins Hives,Rash 09/15/2000 Prednisone 12/30/2017 Weakness/memory changes/blurred vision documented as of this encounter (statuses as of 08/29/2023) Medications Medication Sig Dispensed Refills Start Date [...] in the morning. 0 08/08/2021 Active Nystatin 249130 UNIT/GM External Powder (Nystop)Indications: Lydia rash of [...] XL)Indications:Non-i schemic cardiomyopathy (HCC),Coronary artery disease involving [place] coronary artery of [place] heart without angina pectoris,HTN, goal below 140/90 [...] current use of insulin ([facility]),Type 2 diabetes mellitus with hemoglobin A1c goal of less than 8.0% ([facility]) TEST UP TO FOUR TIMES DAILY 400 [...] Tablet 3 07/08/2023 Active OneTouch Delica Plus [id number] :Type 2 diabetes mellitus with hemoglobin A1c goal of less than 8.0% ([facility]) Test up to two times daily or as directed by [facility] pharmacist 200 Each 3 07/11/2023 Active Torsemide 20 MG Oral Tablet (Demadex)Indications :Heart failure, systolic, due to idiopathic cardiomyopathy ([facility]) Take 60 mg by mouth in the [...] as of this encounter (statuses as of 08/29/2023) Active Problems Problem Noted Date Diagnosed Date [...] 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 Last Assessment & Plan: [facility] Triage Call: Reviewed last C&S [...] Continue synthroid Coronary artery disease invo lving [place] coronary artery of [place] heart without angina pectoris 07/03/2012 Overview: 60% [...] as of this encounter (statuses as of 08/29/2023) Resolved Problems Problem Noted Date Diagnosed Date [...] as of this encounter (statuses as of 08/29/2023) Immunizations Name Administration Dates Next Due COVID-19 mRNA, LNP-s, No Pre serve, 2-Dose Series ([employer]) 08/29/2021,10/23/2020,10/02/2020 COVID-19, MRNA-LNP, 23-24, P F, 30 [...] Description 09/02/2023 12:30 PM EST Home Visit [facility], [facility] 132 [facility] [place] [address] Destiny Schultz RN 132 [facility] [place] [address] 10/08/2023 1:30 PM EST Telemedicine Urology, [facility] 132 [facility] [place] [address] Chandler Pena MD [address] [address] 10/22/2023 2:00 PM EST Office Visit Cardiology, [facility] 132 [facility] [place] [address] Mariano Patel MD [address] [place], [place] [id number] 12/03/2023 3:00 PM EDT Office Visit Dermatology [address] [place] [address] Sheryl Pena PA-C [address] [place] [address] [place] [address] 12/08/2023 1:00 PM EDT Office Visit Ophthalmology, [facility] 132 [facility] [place] [address] Romel Mcclelland, DO [address] [place] [address] 01/06/2024 1:30 PM EDT Cardiac Studies Cardiology [address] [place] [address] Aleta Abel [facility] [place] [address] 03/30/2024 3:40 PM EDT Office Visit Family Medicine [address] [place] [phone] Verónica Benavides MD [address] [place] [address] [place] [address] Health Maintenance Due Date Last Done Comments [...] Additional history exists CKD PHOS USE SMARTSET 23601 02/08/202401/23, 08/07/2021, 11/09/2019, Additional history exists TSH 03/25/2024 03/25/2023, 07/0 10/2022, 10/28/2022, Additional history exists CKD HGB USE SMARTSET 07778 05/26/202405/26, 05/26/2023, 04/07/2023, Additional history exists Pneumococcal [...] Not on filedocumented as of this encounter Procedures Procedure Name Priority Date/Time Associated Diagnosis Comments CARDIOLOGY SCANNED RESULT 08/29/2023 documented in this encounter Results * CARDIOLOGY SCANNED RESULT (08/29/2023) 08/29/2023 Hermann CAMPOS documented in this encounter Advance Directives Documents on File Type Date Recorded Patient Caser In Expl anation Advance Directives and Living Will 08/10/2021 ADVANCE DIRECTIVE / LIVING WILL LIVING WILL Healthcare Agents on File Name Relationship Healthcare Agent [facility] Communication Josselyn Judd Adult Child Health Care Power of Attor nathalie Care Teams Heel Brusher Relationship Specialty Start Date End Date Verónica Benavides MD [address] [place] [address] [place] [phone] PCP - General Family Medicine 09/16/14 documented as of this encounter
--- OUTSIDE RECORDS SUMMARY | 2023-12-10 00:41 | External Medical Summary ---
Author Name Unknown Address Unknown Organization K01:[facility] [place] [address] [facility] [address] Laboratory Report Ordering Provider Test Date Status SARAH GAO 09/01/2023 11:59:27 Final <10,000 colonies/ml mixed no rmal rachid Observation Date Value Abnormality Reference (Units ) Status Bacteria identified in Specimen by Culture 09/01/2023 11:59:27 [id number]^KLEBSIELL A PNEUMONIAE Abnormal Final >100,000 colonies/mL Klebsie lla pneumoniae
AmpC Beta-lactamase producing organism. This gram negative bacilli displays in vitro resistance to multiple antibiotics. Bacteria identified in Specimen by Culture 09/01/2023 11:59:27 [id number]^KLEBSIELLA PNEUMONIAE Abnormal Final >100,000 colonies/mL - secon d type Klebsiella pneumoniae Performing Location LABORATORY C - [address] [facility] [address] Ordering Provider Test Date Status SARAH GAO 09/01/2023 11:59:27 Final Observation Date Value Abnormality Reference (Units) Status Ampicillin + Sulbactam 09/01/2023 11:59:27 4 Susceptible Final Cefazolin 09/01/2023 11:59:27 <=4 Susceptible Final Cefepime susceptibility 09/01/2023 11:59:27 <=1 Susceptible Final cefOXitin [Susceptibility] 09/01/2023 11:59:27 32 Resistant Final Ceftriaxone suceptibility 09/01/2023 11:59:27 <=1 Susceptible Final Ciprofloxacin 09/01/2023 11:59:27 <=0.25 Susceptible Final Gentamicin susceptibility 09/01/2023 11:59:27 <=1 Susceptible Final Levofloxacin susceptibility 09/01/2023 11:59:27 1 Intermediate Final Nitrofurantoin susceptibility 09/01/2023 11:59:27 256 Resistant Final Piperacillin + Tazobactamsusceptibility 09/01/2023 11:59:27 <=4 Susceptible Final TMP-SMZ susceptibility 09/01/2023 11:59:27 <=20 Susceptible Final Performing Location [facility] - [address] [facility] [address] Ordering Provider Test Date Status SARAH GAO 09/01/2023 11:59:27 Final Observation Date Value Abnormality Reference (Units) Status Ampicillin + Sulbactam 09/01/2023 11:59:27 <=2 Susceptible Final Cefazolin 09/01/2023 11:59:27 <=4 Susceptible Final Cefepime susceptibility 09/01/2023 11:59:27 <=1 Susceptible Final Ceftriaxone suceptibility 09/01/2023 11:59:27 <=1 Susceptible Final Ciprofloxacin 09/01/2023 11:59:27 <=0.25 Susceptible Final Gentamicin susceptibility 09/01/2023 11:59:27 <=1 Susceptible Final Nitrofurantoin susceptibility 09/01/2023 11:59:27 >=512 Resistant Final Piperacillin + Tazobactamsusceptibility 09/01/2023 11:59:27 <=4 Susceptible Final TMP-SMZ susceptibility 09/01/2023 11:59:27 <=20 Susceptible Final Test: Culture, Urine, Quanti tative
Specimen Source: Urine, Clean Catch
Specimen Type: Urine
Specimen Date: 09/01/2023 11:59 AM
Result Date: 09/08/2023 11:30 AM
Result Status: Final result
Abnormal: Yes
Resulting Lab: [facility]
[address]
[place] [address]

CULTURE

>100,000 colonies/mL Klebsiella pneumoniae (Abnormal)

AmpC Beta-lactamase producing organism. This gram negative bacilli displays
in vitro resistance to multiple antibiotics.

>100,000 colonies/mL - second type Klebsiella pneumoniae (Abnormal)

<10,000 colonies/ml mixed normal rachid

SUSCEPTIBILITY

Klebsiella Klebsiella
pneumoniae (1) pneumoniae (2)
METHOD MICROBROTH DILUTIONS MICROBROTH DILUTIONS

AMPICILLIN/SULBACTAM 4 Susceptible <=2 Susceptible
CEFAZOLIN <=4 Susceptible <=4 Susceptible
CEFEPIME <=1 Susceptible <=1 Susceptible
CEFOXITIN 32 Resistant
CEFTRIAXONE <=1 Susceptible <=1 Susceptible
CIPROFLOXACIN <=0.25 Susceptible <=0.25 Susceptible
GENTAMICIN <=1 Susceptible <=1 Susceptible
LEVOFLOXACIN 1 Intermediate
NITROFURANTOIN 256 Resistant >=512 Resistant
PIPERACILLIN TAZOBACTAM <=4 Susceptible <=4 Susceptible
TRIMETH/SULFAMETHOXAZOLE <=20 Susceptible <=20 Susceptible

[facility] Location LABOR[facility] - [address] [facility] [address]
--- OUTSIDE RECORDS SUMMARY | 2023-12-10 00:41 | External Medical Summary | Summary of Care ---
Author Name Unknown Organization [facility] Address [address] [place] [address] Phone [phone] Care Team Providers Care Supply Controller Name Role Phone Verónica Benavides MD Primary Care Provide r Reason for Visit * Reason Comments Dosage Adjustment Via Phone (anticoag Cl inic) Diabetes Follow-Up Encounter Details Date Type Department Care Team ([facility] st Contact Info) Description 08/15/2023 9:10 AM EST Telemedicine Pharmacy, [address] [place] [address] [place] [address] Type 2 diabetes mellitus with hemoglobin A1c goal of less than 8.0% ([facility])* Allergies Active Allergy Reactions Criticality Noted Date Comments Adhesive Tape Medium 01/30/2022 Ibuprofen Hives 01/13/2012 Aspirin Hives,Rash 09/15/2000 Sulfamethoxazole-Trimeth oprim Nausea/vomiting,Othe r (Please comment) 10/27/2020 Dizziness Ciprofloxacin Hcl 06/16/2019 Hoarse, dizzy,disoriented Morphine 09/21/2021 Blacked out Penicillins Hives,Rash 09/15/2000 Prednisone 12/30/2017 Weakness/memory changes/blurred vision documented as of this encounter (statuses as of 08/15/2023) Medications Medication Sig Dispensed Refills Start Date [...] in the morning. 0 08/08/2021 Active Nystatin 048212 UNIT/GM External Powder (Nystop)Indications: Lydia rash of [...] XL)Indications:Non-i schemic cardiomyopathy (HCC),Coronary artery disease involving [place] coronary artery of [place] heart without angina pectoris,HTN, goal below 140/90 [...] Tablet 3 07/08/2023 Active OneTouch Delica Plus [id number] :Type 2 diabetes mellitus with hemoglobin A1c goal of less than 8.0% ([facility]) Test up to two times daily or as directed by [facility] pharmacist 200 Each 3 07/11/2023 Active [...] as of this encounter (statuses as of 08/15/2023) Active Problems Problem Noted Date Diagnosed Date [...] 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 Last Assessment & Plan: [facility] Triage Call: Reviewed last C&S [...] Continue synthroid Coronary artery disease invo lving [place] coronary artery of [place] heart without angina pectoris 07/03/2012 Overview: 60% [...] as of this encounter (statuses as of 08/15/2023) Resolved Problems Problem Noted Date Diagnosed Date [...] as of this encounter (statuses as of 08/15/2023) Immunizations Name Administration Dates Next Due COVID-19 mRNA, LNP-s, No Pre serve, 2-Dose Series ([employer]) 08/29/2021,10/23/2020,10/02/2020 COVID-19, MRNA-LNP, 23-24, P F, 30 [...] as of this encounter Progress Notes * Kathe Ahmadi, [facility] - 08/15/2023 9:16 AM EST After connecting to the patient via telephone, the patient was identified by name and date of . Patient was then informed that this was a telephone call only visit. The patient agreed to participate. Visit Disposition: Routine follow-up Called and spoke with patient's daughter Total call duration was 10 minutes. Medication Therapy Disease Management [facility] - Diabetes Management Progress Note Regla Stiles, identified by name and date of , is a 88 year old female being seen for diabetesmanagement/education. Patient presents for return diabetic visit. DIABETES: Current diabetic medications: Trulicity 0.75mg weekly eGFR 54 as of 05/26/23 Medication Injection Site: Abdomen Lifestyle: Diet: unchanged Glucose Review/SMBG: Not available Hypoglycemia: Does your blood sugar go below 70 mg/dL? Denies Hyperglycemia symptoms present: none Recent Labs Units 02/11/23 1340 11/01/22 0618 01/11/22 0825 HEMOGLOBIN A1C - [facility] % 9.6* 7.6* 6.9* Recent Labs Units 05/26/23 1011 04/07/23 0648 03/31/23 0710 ESTIMATED GLOMERULAR FILTRATION RATE - [facility] mL/min 53* 57* 62 CREATININE - [facility] mg/dL 1.0 1.0 0.9 HYPERTENSION: Patient on ACEi/ARB: no, deferred to PCP BP Readings from Last 3 Encounters: 07/29/23 108/68 06/26/23 122/76 06/16/23 102/72 Blood pressure at goal: yes HYPERLIPIDEMIA: Patient is taking moderate or high intensity statin: no, deferred to PCP HEALTH MAINTENANCE REVIEW: Health Maintenance Due Topic Date Due Zoster Vaccines (1 of 2) Never done Hepatitis B (1 of 3 - Risk 3-dose series) Never done DXA Scan 04/02/2020 Depression Screening 05/24/2020 Diabetic Foot Exam 11/08/2020 Influenza Vaccine (FLU shot) (1) 04/25/2023 HbA1c 08/13/2023 ASSESSMENT & PLAN: ICD-10-CM 1. Type 2 diabetes mellitus with hemoglobin A1c goal of less than 8.0% (HCC) E11.9 Considerations: Chronic UTIs Works with [facility] Renal Fx BG Readings - Blood sugars not available. However daughter reports they are remaining stable and well controlled at goal. Notices a rise to ~ 150mg/dL if she snacks on sweets. Medications - Reviewed current regimen, patient is adherent to regimen. Tolerating well and withoutissue. Diet, Exercise, Lifestyle - No significant lifestyle changes since last visit. Discharge at this time due to great control. Welcome future referrals as appropriate. Thank you forallowing us to participate in the care of this patient. This patient has met their goal HgA1C and has been graduated from the [facility] Diabetes Management Program effective today. YES Patient is agreeable to SMBG 1-2 time(s) daily. Patient aware to contact clinic if any hypoglycemia before next visit. MEDICATION CHANGES: no change Diabetic Medications: Trulicity 0.75mg weekly eGFR 54 as of 05/26/23 HEALTH MAINTENANCE INTERVENTIONS: Deferred, telephonic visit FOLLOW UP: Return to clinic n/a Kathe Ahmadi [facility] Clinical Pharmacist - Manual Tester Medication Therapy Management Clinic 08/15/2023, 9:16 AM documented in this encounter Plan of Treatment Upcoming Encounters Date Type Department Care Team (Late st Contact Info) Description 09/02/2023 12:30 PM EST Home Visit [facility], [facility] [address] [place] [address] Destiny Schultz, POPPY [address] [place] [address] 10/08/2023 1:30 PM EST Telemedicine Urology, [facility] [address] [place] [address] Chandler Pena MD 27 [facility] [address] [place] [address] 10/22/2023 2:00 PM EST Office Visit Cardiology, [facility] 132 [facility] [place] [address] Mariano Patel MD [address] [place] [address] 12/03/2023 3:00 PM EDT Office Visit Dermatology [address] [place] [address] Sheryl Pena PA-C [address] [place] [address] [place] [address] 12/08/2023 1:00 PM EDT Office Visit Ophthalmology, [facility] 132 [facility] [place] [address] Romel Mcclelland T, DO 16 [place] [address] 01/06/2024 1:30 PM EDT Cardiac Studies Cardiology [address] [place] [address] Aleta Abel [facility] 132 [facility] [place] [address] 03/30/2024 3:40 PM EDT Office Visit Family Medicine [address] [place] [phone] Verónica Benavides MD [address] [place] [address] [place] [address] Health Maintenance Due Date Last Done Comments [...] Additional history exists CKD PHOS USE SMARTSET 87177 02/08/202401/23, 08/07/2021, 11/09/2019, Additional history exists TSH 03/25/2024 03/25/2023, 0710/2022, 10/28/2022, Additional history exists CKD HGB USE SMARTSET 60375 05/26/202405/26, 05/26/2023, 04/07/2023, Additional history exists Pneumococcal [...] as of this encounter Visit Diagnoses Diagnosis Type 2 diabetes mellitus with hemoglobin A1c goal of less than 8.0% (HCC)- Primary documented in this encounter Advance Directives Documents on File Type Date Recorded 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
--- OUTSIDE RECORDS SUMMARY | 2023-12-10 00:41 | External Medical Summary | Summary of Care ---
Author Name Unknown Organization [facility] Address [address] [place] [address] Phone [phone] Care Team Providers Care Director Network Development Name Role Phone Verónica Benavides MD Primary Care Provide r Reason for Visit * Reason Comments Outpatient Testing Encounter Details Date Type Department Care Team (Late st Contact Info) Description 09/01/2023 10:30 AM EST Laboratory Laboratory [address] [place] [phone] , Specimen Drop Off [address] [place] [address] Arrived Allergies Active [...] in the morning. 0 08/08/2021 Active Nystatin 222615 UNIT/GM External Powder (Nystop)Indications: Lydia rash of [...] XL)Indications:Non-i schemic cardiomyopathy (HCC),Coronary artery disease involving [place] coronary artery of [place] heart without angina pectoris,HTN, goal below 140/90 [...] disease, without long-term current use of insulin ([facility]),Type 2 diabetes mellitus with hemoglobin A1c goal of less than 8.0% ([facility]) TEST UP TO FOUR TIMES [...] Tablet 3 07/08/2023 Active OneTouch Delica Plus [id number] :Type 2 diabetes mellitus with hemoglobin A1c goal of less than 8.0% ([facility]) Test up to two times daily or as directed by [facility] pharmacist 200 Each 3 07/11/2023 Active Torsemide 20 MG Oral Tablet (Demadex)Indications :Heart failure, systolic, due to idiopathic cardiomyopathy ([facility]) Take 60 mg by mouth [...] Continue synthroid Coronary artery disease invo lving [place] coronary artery of [place] heart without angina pectoris 07/03/2012 Overview: 60% [...] mRNA, LNP-s, No Pre serve, 2-Dose Series ([employer]) 08/29/2021,10/23/2020,10/02/2020 COVID-19, MRNA-LNP, 23-24, P F, 30 [...] PM EST Home Visit [facility], [facility] 132 [facility] [place] [address] Destiny Schultz, RN 132 [facility] [place] [address] 10/08/2023 1:30 PM EST Telemedicine Urology, [facility] 132 [facility] [place] [address] Chandler Pena MD [address] [place] [address] [place] [address] 10/22/2023 2:00 PM EST Office Visit Cardiology, [facility] 132 [facility] [place] [address] Mariano Patel MD [address] [place] [address] 12/03/2023 3:00 PM EDT Office Visit Dermatology [address] [place] [address] Sheryl Pena PA-C [address] [place] [address] [place] [address] 12/08/2023 1:00 PM EDT Office Visit Ophthalmology, [facility] 132 [facility] [place] [address] Romel Mcclelland T, DO 16 [place] [address] 01/06/2024 1:30 PM EDT Cardiac Studies Cardiology [address] [place] [address] [facility] 132 [facility] [place] [address] 03/30/2024 3:40 PM EDT Office Visit Family Medicine [address] [place] [phone] Verónica Benavides MD [address] [place] [address] [place] [address] Health Maintenance Due Date Last Done Comments [...] Additional history exists CKD PHOS USE SMARTSET 39920 02/08/2024 0601/2023, 08/07/2021, 11/09/2019, Additional history exists TSH 03/25/2024 03/25/2023, 07/0 10/2022, 10/28/2022, Additional history exists CKD HGB USE SMARTSET 12270 05/26/202405/26, 05/26/2023, 04/07/2023, Additional history exists Pneumococcal [...] Documents on File Type Date Recorded Patient Defense Travel Administrator Expl anation Advance Directives and Living Will 08/10/2021 ADVANCE DIRECTIVE / LIVING WILL LIVING WILL Healthcare Agents on File Name Relationship Healthcare Agent [facility] Communication Josselyn Judd Adult Child Health Care Power of Attor nathalie Care Teams Director Network Development Relationship Specialty Start Date End Date Verónica Benavides MD [address] [place] [address] [place] [address] PCP - General Family Medicine 09/16/14 documented as of this encounter
--- OUTSIDE RECORDS SUMMARY | 2023-12-10 00:42 | External Medical Summary | Summary of Care ---
Author Name Unknown Organization [facility] Address [address] [place] [address] Phone [phone] Care Team Providers Care Medical Staff Specialist Name Role Phone Verónica Jiang MD Primary Care Provide r Reason for Visit * Reason Comments eRx-Medication Refill Encounter Details Date Type Department Care Team (Late st Contact Info) Description 08/11/2023 Refill Family Medicine [address] [phone] Verónica Jiang MD [address] [place] [address] [place] [address] Hypothyroidism, unspecified type Allergies Active Allergy Reactions Criticality Noted Date Comments Adhesive Tape Medium 01/30/2022 Ibuprofen Hives 01/13/2012 Aspirin Hives,Rash 09/15/2000 Sulfamethoxazole-Trimeth oprim Nausea/vomiting,Othe r (Please comment) 10/27/2020 Dizziness Ciprofloxacin Hcl 06/16/2019 Hoarse, dizzy,disoriented Morphine 09/21/2021 Blacked out Penicillins Hives,Rash 09/15/2000 Prednisone 12/30/2017 Weakness/memory changes/blurred vision documented as of this encounter (statuses as of 08/11/2023) Medications Medication Sig Dispensed Refills Start Date [...] in the morning. 0 1 Active Nystatin 273641 UNIT/GM External Powder (Nystop)Indications :Lydia rash of [...] XL)Indications:Non- ischemic cardiomyopathy (HCC),Coronary artery disease involving [place] coronary artery of [place] heart without angina pectoris,HTN, goal below 140/90 [...] without long-term current use of insulin ([facility]),Type 2 diabetes mellitus with hemoglobin A1c goal of less than 8.0% ([facility]) TEST UP TO FOUR TIMES DAILY [...] Tablet 3 3 Active OneTouch Delica Plus [id number] s:Type 2 diabetes mellitus with hemoglobin A1c goal of less than 8.0% ([facility]) Test up to two times daily or as directed by [facility] pharmacist 200 Each 3 3 Active Torsemide 20 MG Oral Tablet (Demadex)Indication s:Heart failure, systolic, due to idiopathic cardiomyopathy ([facility]) Take 60 mg by mouth in [...] area nightly 30 g 5 3 Active Nitrofurantoin Monohyd Macro 100 MG Oral Capsule (Macrobid) Take 1 Capsule by mouth in the morning and 1 Capsule before bedtime. With food.. 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 Last Assessment & Plan: [facility] Triage Call: Reviewed last C&S [...] Continue synthroid Coronary artery disease invo lving [place] coronary artery of [place] heart without angina pectoris 07/03/2012 Overview: 60% [...] as of this encounter (statuses as of 08/11/2023) Resolved Problems Problem Noted Date Diagnosed Date [...] as of this encounter (statuses as of 08/11/2023) Immunizations Name Administration Dates Next Due COVID-19 mRNA, LNP-s, No Pre serve, 2-Dose Series ([employer]) 08/29/2021,10/23/2020,10/02/2020 COVID-19, MRNA-LNP, 23-24, P F, 30 MCG/0.3 mL, 12 YRS AND ABOVE, IM [facility] 08/04/2023 Covid-19, Mrna, Lnp-s, Pf, B ivalent, 30 Mcg, IM, 12 yrs and above ([employer]) 08/02/2022 Pneumococcal Conjugate Vacc, 13 Valent (Prevnar) [...] encounter Miscellaneous Notes * Telephone Encounter - Gustavo Zhao RPh - 08/11/2023 5:10 PM EST Signed Prescriptions: Disp Refills Levothyroxine Sodium 88 MCG Oral Tablet (L*90 Tab*3 Sig: TAKE ONE TABLET BY MOUTH EVERY MORNING 30 MINS PRIOR TO FIRST MEAL OF THE DAY OR OTHER MEDSAuthorizing Provider: VERÓNICA JIANG User: GUSTAVO ZHAO documented in this encounter Plan of Treatment Upcoming Encounters Date Type Department Care Team (Late st Contact Info) Description 08/15/2023 9:10 AM EST Telemedicine Pharmacy, [address] [place] [address] [place] [address] 09/02/2023 12:30 PM EST Home Visit [facility] [address] [place] [address] Destiny Schultz, POPPY [address] [place] [address] 10/08/2023 1:30 PM EST Telemedicine Urology, [facility] 132 [place] [address] Chandler Pena MD 27 [facility] [place] [address] [place] [address] 10/22/2023 2:00 PM EST Office Visit Cardiology, [facility] [address] [place] [address] Mariano Patel MD [address] [place], [place] [id number] 12/03/2023 3:00 PM EDT Office Visit Dermatology [address] [place] [address] Sheryl Pena PA-C [address] [place] [address] [place] [address] 12/08/2023 1:00 PM EDT Office Visit Ophthalmology, [facility] 132 [place] [address] Romel Mcclelland T, DO [address] [place] [address] 01/06/2024 1:30 PM EDT Cardiac Studies Cardiology [address] [place] [address] [facility] 132 [facility] [place] [address] 03/30/2024 3:40 PM EDT Office Visit Family Medicine [address] [place] [phone] Verónica Jiang MD [address] [place] [address] [place] [address] Health Maintenance Due Date Last Done Comments [...] Additional history exists CKD PHOS USE SMARTSET 82504 02/08/202401/23, 08/07/2021, 11/09/2019, Additional history exists TSH 03/25/2024 03/25/2023, 07/0 10/2022, 10/28/2022, Additional history exists CKD HGB USE SMARTSET 58752 05/26/202405/26, 05/26/2023, 04/07/2023, Additional history exists Pneumococcal [...] as of this encounter Visit Diagnoses Diagnosis Hypothyroidism, unspecified type documented in this encounter Advance Directives Documents on File Type 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
--- OUTSIDE RECORDS SUMMARY | 2023-12-10 00:42 | External Medical Summary | Summary of Care ---
Author Name Unknown Organization [facility] Address [address] [place] [address] Phone [phone] Care Team Providers Care Agile Project Manager Name Role Phone Verónica Benavides MD Primary Care Provide r Encounter Details Date Type Department Care Team (Late st Contact Info) Description 08/04/2023 1:30 PM EST [facility] [address] [place] [address] Marija Londono, RN [address] [facility] [address] Encounter for immunization* Allergies Active Allergy Reactions Criticality Noted Date Comments Adhesive Tape Medium 01/30/2022 Ibuprofen Hives 01/13/2012 Aspirin Hives,Rash 09/15/2000 Sulfamethoxazole-Trimeth oprim Nausea/vomiting,Othe r (Please comment) 10/27/2020 Dizziness Ciprofloxacin Hcl 06/16/2019 Hoarse, dizzy,disoriented Morphine 09/21/2021 Blacked out Penicillins Hives,Rash 09/15/2000 Prednisone 12/30/2017 Weakness/memory changes/blurred vision documented as of this encounter (statuses as of 08/04/2023) Medications Medication Sig Dispensed Refills Start Date [...] in the morning. 0 08/08/2021 Active Nystatin 302307 UNIT/GM External Powder (Nystop)Indications: Lydia rash of [...] for dizziness 30 Tablet 5 09/09/2022 Active Levothyroxine Sodium 88 MCG Oral Tablet (Levoxyl)Indications :Hypothyroidism, unspecified type TAKE ONE TABLET BY MOUTH EVERY MORNING 30 MINS PRIOR TO FIRST MEAL OF THE DAY OR OTHER MEDS 90 Tablet 2 10/04/2022 Active D-Mannose 500 MG Oral Capsule Take by mouth 2 times a day. 2 caps two times daily 0 Active Vitamin D-3 25 MCG (1000 UT) Oral Capsule Take 1 Capsule by mouth in the morning. 0 Active Docusate Sodium 50 MG/5ML Oral Liquid (Colace) Place 10 gtts to each ear for 30 min then irrigate. 120 mL 3 11/29/2022 Active Omeprazole 20 MG Oral Capsule Delayed Release (PriLOSEC) TAKE ONE CAPSULE BY MOUTH EVERY DAY, ONE hour BEFORE THE first meal of THE DAY 90 Capsule 1 01/03/2023 Active Bisacodyl 5 MG Oral Tablet Delayed Release Take 2 Tablets by mouth daily as needed for Constipation. Do not use for more than one week. Do not cut, crush or chew 40 Tablet 1 01/24/2023 Active Metoprolol Succinate ER 25 MG Oral Tablet Extended Release 24 Hour (toPROL XL)Indications:Non-i schemic cardiomyopathy (HCC),Coronary artery disease involving [place] coronary artery of [place] heart without angina pectoris,HTN, goal below 140/90 [...] disease, without long-term current use of insulin ([facility]),Type 2 diabetes mellitus with hemoglobin A1c goal of less than 8.0% ([facility]) TEST UP TO FOUR TIMES DAILY [...] Tablet 3 07/08/2023 Active OneTouch Delica Plus [id number] :Type 2 diabetes mellitus with hemoglobin A1c goal of less than 8.0% ([facility]) Test up to two times daily or as directed by [facility] pharmacist 200 Each 3 07/11/2023 [...] With food.. 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 Last Assessment & Plan: [facility] Triage Call: Reviewed last C&S [...] Continue synthroid Coronary artery disease invo lving [place] coronary artery of [place] heart without angina pectoris 07/03/2012 Overview: 60% [...] as of this encounter (statuses as of 08/04/2023) Resolved Problems Problem Noted Date Diagnosed Date [...] as of this encounter (statuses as of 08/04/2023) Immunizations Name Administration Dates Next Due COVID-19 mRNA, LNP-s, No Pre serve, 2-Dose Series ([employer]bs) 08/29/2021,10/23/2020,10/02/2020 COVID-19, MRNA-LNP, 23-24, P F, 30 MCG/0.3 mL, 12 YRS AND ABOVE, IM ([employer]-Comirnaty) 08/04/2023 Covid-19, Mrna, Lnp-s, Pf, B ivalent, 30 Mcg, IM, 12 yrs and above ([employer]) 08/02/2022 Pneumococcal Conjugate Vacc, 13 Valent (Prevnar) 09/11/2015 Pneumococcal Polysaccharide PPV23 (Pneumovax) 05/25/2008,06/23/2001 SEASONAL INFLUENZA, PF, 6 M & Above, IM , (FLULAVAL or FLUZONE) 06/04/2019,04/30/2018 Season Influenza, Quad, PF, Adjuvanted, 65+ Yrs, IM (FLUAD) 06/06/2020 Seasonal Influenza Virus Vac cine, Unspecified Formulation 06/04/2019,04/30/2018,06/05/2017,05/25,05/23/2017,08/12/2016,04/22/2014 ,05/17/2013,04/29/2012,06/21/2011,10/2009,05/31/2009,07/01/2008, 7,08/08/2006,06/21/2005,07/05/2003,06/2002,06/23/2001,08/07/2000 Seasonal Influenza, Quadriva lent Hd (Fluzone Hd) [...] Sign Reading Time Taken Comments Blood Pressure - - Pulse - - Temperature 36.4 C (97.6 F) 08/04/2023 1:32 PM ES T Respiratory Rate - - Oxygen Saturation - - Inhaled Oxygen Concentration - - Weight - - Height - - Body Mass Index - - documented in this encounter Plan of Treatment Upcoming Encounters Date Type Department Care Team (Late st Contact Info) Description 08/05/2023 10:00 AM EST [facility] [address] [place] [address] Coordinator, [facility] [address] [place] [address] 08/08/2023 1:00 PM EST Telemedicine Pharmacy, [address] [place] [address] [place] [address] 09/02/2023 12:30 PM EST [facility] [address] [place] [address] Destiny Schultz, POPPY [address] [place] [address] 10/08/2023 1:30 PM EST Telemedicine Urology, [facility] [address] [place] [address] Chandler Pena MD 27 [facility] [address] [place] [address] 10/22/2023 2:00 PM EST Office Visit Cardiology, [facility] 132 [facility] [place] [address] Mariano Patel MD [address] [place], [place] [id number] 12/03/2023 3:00 PM EDT Office Visit Dermatology [address] [place] [address] Sheryl Pena PA-C [address] [place] [address] [place] [address] 12/08/2023 1:00 PM EDT Office Visit Ophthalmology, [facility] 132 [facility] [place] [address] Romel Mcclelland, DO [address] [place] [phone] 01/06/2024 1:30 PM EDT Cardiac Studies Cardiology [address] [place] [address] [place] [address] [place] [address] 03/30/2024 3:40 PM EDT Office Visit Family Medicine [address] [place] [phone] Verónica Benavides MD [address] [place] [address] [place] [address] Health Maintenance Due Date Last Done Comments Zoster Vaccines (1 of 2) 1985 Hepatitis B (1 of 3 - Risk 3-dose series) 1995 DXA Scan 04/02/2020 04/02/2017, 05/2 11/2012, 11/05/2007 Depression Screening 05/24/2020 05/24/2019 Diabetic [...] Additional history exists CKD PHOS USE SMARTSET 43938 02/08/202401/23, 08/07/2021, 11/09/2019, Additional history exists TSH 03/25/2024 03/25/2023, 0710/2022, 10/28/2022, Additional history exists CKD HGB USE SMARTSET 06724 05/26/202405/26, 05/26/2023, 04/07/2023, Additional history exists Pneumococcal [...] as of this encounter Visit Diagnoses Diagnosis Encounter for immunization- Primary Need for other specified prophylactic vaccination against single bacterial disease documented in this encounter Advance Directives Documents on File Type Date 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
--- OUTSIDE RECORDS SUMMARY | 2023-12-10 00:42 | External Medical Summary | Summary of Care ---
Author Name Unknown Organization [facility] Address [address] [place] [address] Phone [phone] Care Team Providers Care Watch Supervisor Name Role Phone Verónica Benavides MD Primary Care Provide r Reason for Visit * Reason Onset Date Comments [facility]: Maintenance 08/05/2023 Encounter Details Date Type Department Care Team ([facility] Contact Info) Description 08/05/2023 10:00 AM EST Scheduled Telephone [facility], [facility] 132 [facility] [place] [address] Coordinator, [facility] 132 [facility] [place] [address] Allergies Active Allergy Reactions Criticality Noted Date Comments Adhesive Tape Medium 01/30/2022 Ibuprofen Hives 01/13/2012 Aspirin Hives,Rash 09/15/2000 Sulfamethoxazole-Trimeth oprim Nausea/vomiting,Othe r (Please comment) 10/27/2020 Dizziness Ciprofloxacin Hcl 06/16/2019 Hoarse, dizzy,disoriented Morphine 09/21/2021 Blacked out Penicillins Hives,Rash 09/15/2000 Prednisone 12/30/2017 Weakness/memory changes/blurred vision documented as of this encounter (statuses as of 08/05/2023) Medications Medication Sig Dispensed Refills Start Date [...] in the morning. 0 08/08/2021 Active Nystatin 563639 UNIT/GM External Powder (Nystop)Indications: Lydia rash of [...] XL)Indications:Non-i schemic cardiomyopathy (HCC),Coronary artery disease involving [place] coronary artery of [place] heart without angina pectoris,HTN, goal below [...] long-term current use of insulin ([facility]),Type 2 diabetes mellitus with hemoglobin A1c goal of less than 8.0% ([facility]) TEST UP TO FOUR TIMES DAILY 400 [...] Tablet 3 07/08/2023 Active OneTouch Delica Plus [id number] :Type 2 diabetes mellitus with hemoglobin A1c goal of less than 8.0% ([facility]) Test up to two times daily or as directed by [facility] pharmacist 200 Each 3 07/11/2023 [...] as of this encounter (statuses as of 08/05/2023) Active Problems Problem Noted Date Diagnosed Date [...] 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 Last Assessment & Plan: [facility] Triage Call: Reviewed last C&S - [...] Continue synthroid Coronary artery disease invo lving [place] coronary artery of [place] heart without angina pectoris 07/03/2012 Overview: [...] as of this encounter (statuses as of 08/05/2023) Resolved Problems Problem Noted Date Diagnosed Date [...] as of this encounter (statuses as of 08/05/2023) Immunizations Name Administration Dates Next Due COVID-19 mRNA, LNP-s, No Pre serve, 2-Dose Series ([employer]) 08/29/2021,10/23/2020,10/02/2020 COVID-19, MRNA-LNP, 23-24, P F, 30 [...] Telephone Encounter - Johanne Licona RN - 08/05/2023 9:45 AM EST Patient had covid booster yesterday. Follow up call to see if any adverse effects from booster. Patient is just a little tired. Advised to call with new/worsening non emergent health issue. Johanne Licona. RN [facility] analog circuit designer [phone] documented in this encounter Plan of Treatment Upcoming Encounters Date Type Department Care Team (Late st Contact Info) Description 08/08/2023 1:00 PM EST Telemedicine Pharmacy, [address] [place] [address] [place] [address] 09/02/2023 12:30 PM EST Home Visit [facility] 132 [facility] [place] [address] Destiny Schultz RN 132 [facility] [place] [address] 10/08/2023 1:30 PM EST Telemedicine Urology, [facility] [address] [facility] [place] [address] Chandler Pena MD [address] [place] [address] [place] [address] 10/22/2023 2:00 PM EST Office Visit Cardiology, [facility] 132 [facility] [place] [address] Mariano Patel MD [address] [place] [address] 12/03/2023 3:00 PM EDT Office Visit Dermatology [address] [place] [address] Sheryl Pena PA-C [address] [place] [address] [place] [address] 12/08/2023 1:00 PM EDT Office Visit Ophthalmology, [facility] 132 [facility] [place] [address] Romel Mcclelland, [address] [phone] 01/06/2024 1:30 PM EDT Cardiac Studies Cardiology [address] [place] [address] [place] 132 [facility] [place] [address] 03/30/2024 3:40 PM EDT Office Visit Family Medicine [address] [place] [phone] Verónica Benavides MD [address] [place] [address] [place] [address] Health Maintenance Due Date Last Done Comments [...] Additional history exists CKD PHOS USE SMARTSET 69542 02/08/202401/23, 08/07/2021, 11/09/2019, Additional history exists TSH 03/25/2024 03/25/2023, 10/2022, 10/28/2022, Additional history exists CKD HGB USE SMARTSET 74395 05/26/202405/26, 05/26/2023, 04/07/2023, Additional history exists Pneumococcal [...] Documents on File Type Date 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
--- OUTSIDE RECORDS SUMMARY | 2023-12-10 00:42 | External Medical Summary | Summary of Care ---
Author Name Unknown Organization [facility] Address [address] [place] [address] Phone [phone] Care Team Providers Care Limited Radiology Technician Name Role Phone Verónica Benavides MD Primary Care Provide r Reason for Visit * Reason Comments eRx-Medication Refill Encounter Details Date Type Department Care Team (Late st Contact Info) Description 08/06/2023 Refill [facility], [facility] 132 [facility] [place] [address] Verónica Benavides MD [address] [place] [address] [place] [address] Allergies Active Allergy Reactions Criticality Noted [...] in the morning. 0 1 Active Nystatin 529618 UNIT/GM External Powder (Nystop)Indications :Lydia rash of [...] for dizziness 30 Tablet 5 3 Active Levothyroxine Sodium 88 MCG Oral Tablet (Levoxyl)Indication s:Hypothyroidism, unspecified type TAKE ONE TABLET BY MOUTH EVERY MORNING 30 MINS PRIOR TO FIRST MEAL OF THE DAY OR OTHER MEDS 90 Tablet 2 3 Active D-Mannose 500 MG Oral Capsule [...] XL)Indications:Non- ischemic cardiomyopathy (HCC),Coronary artery disease involving [place] coronary artery of [place] heart without angina pectoris,HTN, goal below 140/90 [...] without long-term current use of insulin ([facility]),Type 2 diabetes mellitus with hemoglobin A1c goal of less than 8.0% ([facility]) TEST UP TO FOUR TIMES DAILY [...] Tablet 3 3 Active OneTouch Delica Plus [id number] s:Type 2 diabetes mellitus with hemoglobin A1c goal of less than 8.0% ([facility]) Test up to two times daily or as directed by [facility] pharmacist 200 Each 3 3 [...] THE DAY 90 Capsule 1 3 Active Omeprazole 20 MG Oral Capsule Delayed Release (PriLOSEC) TAKE ONE CAPSULE BY MOUTH EVERY DAY, ONE hour BEFORE THE first meal of THE DAY 90 Capsule 1 3 08/11/20 23 Discontinued documented as of [...] Continue synthroid Coronary artery disease invo lving [place] coronary artery of [place] heart without angina pectoris 07/03/2012 Overview: 60% [...] mRNA, LNP-s, No Pre serve, 2-Dose Series ([employer]) 08/29/2021,10/23/2020,10/02/2020 COVID-19, MRNA-LNP, 23-24, P F, 30 MCG/0.3 mL, 12 YRS AND ABOVE, IM ([facility]) 08/04/2023 Covid-19, Mrna, Lnp-s, Pf, [...] Telephone Encounter - Murray Smith PA-C - 08/11/2023 3:05 PM ESTSigned Prescriptions: Disp Refills Omeprazole 20 MG Oral Capsule Delayed Rele*90 Cap*1 Sig: TAKE ONE CAPSULE BY MOUTH EVERY DAY, ONE hour BEFORE THE first meal of THE DAYAuthorizing Provider: MURRAY SMITH * Telephone Encounter - Colette Lo LPN - 08/11/2023 1:47 PM ESTPending Prescriptions: Disp Refills Omeprazole 20 MG Oral Capsule Delayed Rele*90 Cap*1 Sig: TAKE ONE CAPSULE BY MOUTH EVERY DAY, ONE hour BEFORE THE first meal of THE DAY * Telephone Encounter - Colette Lo LPN - 08/11/2023 1:47 PM EST Did you pend patient's preferred pharmacy and medication before forwarding?yes Pharmacy: [facility], [address] [place] Pending Prescriptions: Disp Refills Omeprazole 20 MG Oral Capsule Delayed Rel*90 Cap*1 Sig: TAKE ONE CAPSULE BY MOUTH EVERY DAY, ONE hour BEFORE THE first meal of THE DAY Last Visit: 07/15/2019 (in office), 04/30/2023 (telemedicine) Next Visit: 09/02/2023 If no future appointments scheduled, and last appointment is greater than a year ago, please schedule patient for a follow-up appointment Last date the medication was ordered: 01/03/2023 Is this request for a controlled substance?No Urine Drug Screen:No results found. However, due to the size of the patient record, not all encounters were searched. Please check Results Review for a complete set of results. Patient Phone Numbers Labs: Lab Results Component Value Date/Time CREAT 1.0 05/26/2023 10:11 AM CREAT 1.1 (H) 09/13/2020 12:57 PM POTASSIUM 3.7 05/26/2023 10:11 AM POTASSIUM 4.5 09/13/2020 12:57 PM TSH 4.22 (H) 03/25/2023 06:08 AM TSH 6.83 (H) 07/14/2020 12:47 PM LDLCALC 95 11/28/2020 03:04 PM LDLCALC 90 11/09/2019 03:52 PM LDLDIRECT 81 05/24/2022 10:52 AM LDLDIRECT NOT APPLICABLE 11/09/2019 03:52 PM LDLDIRECT 106 08/27/2016 03:06 PM ALT 13 07/18/2021 09:24 AM ALT 15 07/07/2020 11:05 AM HGBA1C 9.6 (H) 02/11/2023 01:40 PM HGBA1C 6.4 (H) 06/06/2020 11:14 AM * Telephone Encounter - [facility], located within [facility] - 08/06/2023 8:40 AM EST Pending Prescriptions: Disp Refills Omeprazole 20 MG Oral Capsule Delayed Rele*90 Cap*1 Sig: TAKE ONE CAPSULE BY MOUTH EVERY DAY, ONE hour BEFORE THE first meal of THE DAY Electronically signed by [facility] located [facility] at 08/06/2023 8:40 AM EST documented in this encounter Plan of Treatment Upcoming Encounters Date Type Department Care Team (Late st Contact Info) Description 08/15/2023 9:10 AM EST Telemedicine Pharmacy, [address] [place] [address] [place] [address] 09/02/2023 12:30 PM EST [facility] Visit [facility] [address] Destiny Schultz, RN [facility] [place] [address] 10/08/2023 1:30 PM EST Telemedicine Urology, [facility] 132 [facility] [place] [address] Chandler Pena MD [address] [address] [place] [address] 10/22/2023 2:00 PM EST Office Visit Cardiology, [facility] 132 [facility] [place] [address] Mariano Patel MD [address] [facility] [place] [address] 12/03/2023 3:00 PM EDT Office Visit Dermatology [address] [place] [address] Sheryl Pena PA-C [address] [place] [address] [place] [address] 12/08/2023 1:00 PM EDT Office Visit Ophthalmology, [facility] 132 [facility] [place] [address] Romel Mcclelland, DO [address] [place] [address] 01/06/2024 1:30 PM EDT Cardiac Studies Cardiology [address] [place] [address] [place], [facility] [place] [address] 03/30/2024 3:40 PM EDT Office Visit Family Medicine [address] [place] [phone] Verónica Benavides MD [address] [place] [address] [place] [address] Health Maintenance Due Date Last Done Comments [...] Additional history exists CKD PHOS USE SMARTSET 97167 02/08/2024 06/01/2023, 08/07/2021, 11/09/2019, Additional history exists TSH 03/25/2024 03/25/2023, 07/0 10/2022, 10/28/2022, Additional history exists CKD HGB USE SMARTSET 83325 05/26/202405/26, 05/26/2023, 04/07/2023, Additional history exists Pneumococcal [...] Documents on File Type Date Recorded Patient [employer] [place] Expl anation Advance Directives and Living Will 08/10/2021 ADVANCE DIRECTIVE / LIVING WILL LIVING WILL Healthcare Agents on File Name Relationship Healthcare Agent [facility] Communication Josselyn [facility] Adult Child Health Care Power of Attor nathalie Care Teams Limited Radiology Technician Relationship Specialty Start Date End Date Verónica Benavides MD [address] [place] [address] [place] [phone] PCP - General Family Medicine 09/16/14 documented as of this encounter
--- OUTSIDE RECORDS SUMMARY | 2023-12-10 00:43 | External Medical Summary | Summary of Care ---
Author Name Unknown Organization [facility] Address [address] [place] [address] Phone [phone] Care Team Providers Care [employer] Field Technician Name Role Phone Verónica Benavides MD Primary Care Provide r Reason for Visit * Reason Onset Date Comments [facility]: Acute 07/09/2023 Encounter Details Date Type Department Care Team ([facility] Contact Info) Description 07/09/2023 2:00 PM EST Scheduled Telephone [facility], [facility] 132 [facility] [place] [address] Coordinator, [facility] 132 [facility] [place] [address] Allergies Active Allergy Reactions Criticality Noted Date Comments Adhesive Tape Medium 01/30/2022 Ibuprofen Hives 01/13/2012 Aspirin Hives,Rash 09/15/2000 Sulfamethoxazole-Trimeth oprim Nausea/vomiting,Othe r (Please comment) 10/27/2020 Dizziness Ciprofloxacin Hcl 06/16/2019 Hoarse, dizzy,disoriented Morphine 09/21/2021 Blacked out Penicillins Hives,Rash 09/15/2000 Prednisone 12/30/2017 Weakness/memory changes/blurred vision documented as of this encounter (statuses as of 07/14/2023) Medications Medication Sig Dispensed Refills Start Date [...] in the morning. 0 1 Active Nystatin 782205 UNIT/GM External Powder (Nystop)Indication s:Lydia rash of [...] then irrigate. 120 mL 3 3 Active Omeprazole 20 MG Oral Capsule Delayed Release (PriLOSEC) TAKE ONE CAPSULE BY MOUTH EVERY DAY, ONE hour BEFORE THE first meal of THE DAY 90 Capsule 1 3 Active Bisacodyl 5 MG Oral Tablet Delayed Release Take 2 Tablets by mouth daily as needed for Constipation. Do not use for more than one week. Do not cut, crush or chew 40 Tablet 1 3 Active Metoprolol Succinate ER 25 MG Oral Tablet Extended Release 24 Hour (toPROL XL)Indications:Non -ischemic cardiomyopathy (HCC),Coronary artery disease involving [place] coronary artery of [place] heart without angina pectoris,HTN, goal below 140/90 Take 1 Tablet by mouth every evening. 90 Tablet 11 3 Active Spironolactone 25 MG Oral Tablet (Aldactone)Indicat ions:Non-ischemic cardiomyopathy (HCC) Take 0.5 Tablets by mouth in the morning. 45 Tablet 3 3 Active metOLazone 2.5 MG Oral Tablet (Zaroxolyn) Take one tablet only when directed by clinician. 5 Tablet 0 3 Active Estrogens Conjugated 0.625 MG/GM Vaginal Cream (Premarin) Administer 0.5 g into the vagina every night at bedtime. Pea-sized amount around vulvar area nightly 30 g 5 3 Active Benzonatate 100 MG Oral Capsule [...] a week. 2 mL 3 3 Active Nitrofurantoin Monohyd Macro 100 MG Oral Capsule (Macrobid) Take 1 Capsule by mouth at bedtime. With food. 30 Capsule 3 3 Active Myrbetriq 25 MG Oral Tablet Extended Release 24 Hour (Mirabegron ER) Take 1 Tablet by mouth in the morning. 90 Tablet 3 3 Active OneTouch Delica Plus [id number] TEST UP TO FOUR TIMES DAILY, E11.9 400 Each 1 2 023 Discontinued Torsemide 20 MG Oral Tablet (Demadex)Indicatio ns:Heart failure, systolic, due to idiopathic cardiomyopathy (HCC) Take 60 mg by mouth in the morning, 40 mg by mouth in the afternoon. Additional 20 mg in the afternoon ONLY if directed by health care provider for weight gain of 3 lbs or more. 180 Tablet 3 3 023 Discontinued(Re fill) documented as of this encounter (statuses as of 07/14/2023) Active Problems Problem Noted Date Diagnosed Date [...] Continue synthroid Coronary artery disease invo lving [place] coronary artery of [place] heart without angina pectoris 07/03/2012 Overview: 60% [...] as of this encounter (statuses as of 07/14/2023) Resolved Problems Problem Noted Date Diagnosed Date [...] as of this encounter (statuses as of 07/14/2023) Immunizations Name Administration Dates Next Due COVID-19 mRNA, LNP-s, No Pre serve, 2-Dose Series ([employer]) 08/29/2021,10/23/2020,10/02/2020 Covid-19, Mrna, Lnp-s, Pf, B [...] Telephone Encounter - Paris Santos LPN - 07/14/2023 9:04 AM EST Spoke with pt's daughter, relayed Dr Pena's instructions. Daughter is not concerned about patient's ability to empty bladder. States the feeling of needing to urinate with inability to urinate happened only a few times. Josselyn states patient is improving, and urine appears less cloudy, patient is less confused. Josselyn will increase macrobid to BID for 7 days, then resume daily prophylaxis. Will continue myerbetriq as prescribed, and does not feel tamsulosin is necessary. Josselyn will contact office with further questions, concerns, deterioration, or lack of significant improvement with completion of BID macrobid. Thank you Sabra * Telephone Encounter - Hermann Orona MD - 07/09/2023 2:59 PM EST Regarding management of her recurrent/persistent UTI, I'll defer to Dr. Pena who just saw for telemedicine visit on 07/08 and started daily macrobid. I'm not sure if bladder imaging will be helpful or not. * Telephone Encounter - Tali Patel RN - 07/09/2023 1:52 PM EST Images from the original note were not included. [facility] Telephonic Nurse Follow-Up Call [facility] Subprogram: Primary Care at Home Follow Up Call Type: 48 hour follow up Acute issue requiring follow-up call: Complicated UTI Objective: 06/26/2023 3:50 PM 06/16/2023 3:59 PM 06/05/2023 1:25 PM 06/04/2023 2:59 PM 05/24/2023 10:16 AM VITALS ACROSS ENCOUNTERS BP 122/76 102/72 118/62 108/58 Pulse 60 78 72 62 Weight 108.9 kg BMI 45.35 kg/m2 Lab Results Component Value Date BLOOD, URINE - [facility] Trace (A) 07/07/2023 PROTEIN, URINE - [facility] Trace (A) 07/07/2023 ESTERASE, URINE - [facility] Large (A) 07/07/2023 WBC AUTO - [facility] 7.42 05/26/2023 WBC CLUMPS, URINE -[facility] Present (A) 07/07/2023 WBC, URINE - [facility] 50+ (A) 07/07/2023 NITRITE, URINE - [facility] Negative 07/07/2023 QUANT URINE CULTURE GROWTH (A) 07/07/2023 >100,000 colonies/mL Lactose fermenting gram negative bacilli Lab Results Component Value Date WBC AUTO - [facility] 7.42 05/26/2023 HGB - [facility] 12.0 05/26/2023 PLATELET AUTO - [facility] 348 05/26/2023 Lab Results Component Value Date SODIUM - [facility] 139 05/26/2023 POTASSIUM - [facility] 3.7 05/26/2023 CO2 - [facility] 26 05/26/2023 CREATININE - [facility] 1.0 05/26/2023 ESTIMATED GLOMERULAR FILTRATION RATE - [facility] 53 (L) 05/26/2023 No results found for: "PRO BNP", "LEFT VENTRICULAR EJECTION FRACTION" Remote Patient Monitoring: NONE Oxygen Needs: NO CHANGE from baseline supplemental oxygen needs DME Needs: NO DME needs identified Medications: New medication(s) added: macrobid daily maint dose placed by urology Subjective: Condition Status: No change in symptoms Current Concerns: Chart reviewed pt preliminary urine culture positive Spoke to daughter pt sx unchanged.+ urgency and at times feels she has to urinate but can't urinate Patient frequent UTIs/short durations inbetween UTIs Pt placed on maintenance daily dose of macrobid by urology DTR just received RX and will start tonight 07/09/23 DTR denies fevers,chills,N/V,tachycardia + HS O2 2.5 LPM NC,BS 132 this am but weight was up 5lbs from yesterday per DTR weight today 237lbs DTR denies distress or sx. States edema in legs are not bad so she feels pt may be full of stool asshe only had small BMs yesterday according to CGs DTR also feels that pt trouble urinating may be contributing factor DTR wanted to wait until tomorrow to see what pt weight is before starting DTP Instructed DTR to call [facility] with weight before initiating any additional medication (pt has both metolazone,potassium,and takes torsemide but no instructions regarding potassium when placed on DTP) DTR will call [facility] tomorrow if weight is still up Care teams please advise...since UTIs never seem to clear and pt is having trouble with urination can bladder scan be done for residual urine? Disposition: Routed to [facility] and/or [facility] Care Team for further advice Future Visits Scheduled: Future Appointments-next 60 days Date/Time Provider Specialty Dept Phone 07/29/2023 8:30 AM Destiny Schultz, POPPY [facility] [phone] 08/04/2023 1:30 PM Marija Londono RN [facility] [phone] 08/05/2023 10:00 AM CoordinatorLenny Ian Lepe [facility] [phone] 08/08/2023 1:00 PM [facility] [phone] 10/08/2023 1:30 PM Chandler Pena MD Urology [phone] 10/22/2023 2:00 PM (Arrive by 1:45 PM) Mariano Patel MD Cardiology [phone] 12/03/2023 3:00 PM (Arrive by 2:45 PM) Sheryl Pena PA-C Dermatology [phone] 12/08/2023 1:00 PM Romel Mcclelland T, DO Ophthalmology [phone] 01/06/2024 1:30 PM (Arrive by 1:15 PM) Aleta Abel [facility] Cardiology [phone] 03/30/2024 3:40 PM (Arrive by 3:25 PM) Verónica Benavides MD Family Medicine [phone] Tali Patel, RN documented in this encounter Plan of Treatment Upcoming Encounters Date Type Department Care Team (Late st Contact Info) Description 07/29/2023 8:30 AM EST Home Visit [facility], [facility] 132 [facility] [place] [address] Destiny Schultz, POPPY 132 [facility] [place] [address] 08/04/2023 1:30 PM EST Home Visit [facility], [facility] 132 [facility] [place] [address] Marija Londono RN 132 [facility] [place] [address] 08/05/2023 10:00 AM EST Scheduled Telephone [facility] [place], [facility] 132 [facility] [place] [address] Coordinator, [facility] [place] [address] 08/08/2023 1:00 PM EST Telemedicine Pharmacy, [address] [place] [address] [place] [address] 10/08/2023 1:30 PM EST Telemedicine Urology, [facility] [address] [place] [address] Chandler Pena MD [address] [address] [place] [address] 10/22/2023 2:00 PM EST Office Visit Cardiology, [facility] 132 [place] [address] Mariano Patel MD [address] [place], [place] [phone] 12/03/2023 3:00 PM EDT Office Visit Dermatology [address] [place] [address] Sheryl Pena PA-C [address] [place] [address] [place] [address] 12/08/2023 1:00 PM EDT Office Visit Ophthalmology, [facility] 132 [facility] [place] [address] Romel Mcclelland, [address] [phone] 01/06/2024 1:30 PM EDT Cardiac Studies Cardiology [address] [place] [address] [place] [address] [place] [address] 03/30/2024 3:40 PM EDT Office Visit Family Medicine [address] [place] [phone] Verónica Benavides MD [address] [place] [address] [place] [address] Health Maintenance Due Date Last Done Comments Zoster Vaccines (1 of 2) 1985 Hepatitis B (1 of 3 - Risk 3-dose series) 1995 DXA Scan 04/02/2020 04/02/2017, 05/11/2012, 11/05/2007 Depression Screening 05/24/2020 05/24/2019 Diabetic Foot Exam 11/08/2020 11/09/2019, 0 09/01/2018, 08/28/2017, Additional history exists COVID-19 Vaccine ( season) 2023 08/02/2022, 08/02/2022, 08/29/2021, Additional history exists Influenza Vaccine (FLU shot) (#1) 2023 06/20/2022, 06/20/2022, 06/29/2021, Additional history exists HbA1c 08/13/2023 02/11/2023, 10/23, 01/11/2022, Additional history exists DTaP,Tdap,and Td Vaccines (2 - Td or Tdap) 11/16/2023 11/15/2013, 03/29/2008, 03/29/2008 Diabetic Eye Exam 12/22/2023 12/21/2022, , 02/13/2020, Additional history exists Albumin/Creatinine Ratio 02/08/2024 023, 01/18/2022, 12/23/2017, Additional history exists CKD PHOS USE SMARTSET 70350 02/08/202401/23, 08/07/2021, 11/09/2019, Additional history exists TSH 03/25/2024 03/25/2023, 07/10/2022, 10/28/2022, Additional history exists CKD HGB USE SMARTSET 67262 05/26/202405/26, 05/26/2023, 04/07/2023, Additional history exists Pneumococcal Vaccine: 65+ Years Completed 03/26/2023, 09/11/2015, 05/25/2008, Additional history exists GARDASIL-HPV IMMUNIZATION SERIES Aged Out No longer eligible based on patient's age to complete this topic MENINGOCOCCAL (MENACTRA/MENVEO) Aged Out No longer eligible based on patient's age to complete this topic documented as of this encounter Medical Devices Not on filedocumented as of this encounter Advance Directives Documents on File Type Date 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 Communication Josselyn Judd Adult Child Health Care Power of Attor nathalie Care Teams [employer] Field Technician Relationship Specialty Start Date End Date Verónica Benavides MD [address] [place] [address] [place] [phone] PCP - General Family Medicine 09/16/14 documented as of this encounter
--- OUTSIDE RECORDS SUMMARY | 2023-12-10 00:43 | External Medical Summary | Summary of Care ---
Author Name Unknown Organization [facility] Address [address] [place] [address] Phone [phone] Care Team Providers Care Band Reamer Machine Operator Name Role Phone Verónica Benavides MD Primary Care Provide r Reason for Visit * Reason Comments [facility]: Maintenance Encounter Details Date Type Department Care Team (Late st Contact Info) Description 07/29/2023 8:30 AM EST [facility] Visit [facility], [facility] [address] [facility] [place] [address] Destiny Schultz, POPPY [address] [facility] [place] [address] Allergies Active Allergy Reactions Criticality Noted Date Comments Adhesive Tape Medium 01/30/2022 Ibuprofen Hives 01/13/2012 Aspirin Hives,Rash 09/15/2000 Sulfamethoxazole-Trimeth oprim Nausea/vomiting,Othe r (Please comment) 10/27/2020 Dizziness Ciprofloxacin Hcl 06/16/2019 Hoarse, dizzy,disoriented Morphine 09/21/2021 Blacked out Penicillins Hives,Rash 09/15/2000 Prednisone 12/30/2017 Weakness/memory changes/blurred vision documented as of this encounter (statuses as of 07/30/2023) Medications Medication Sig Dispensed Refills Start Date [...] in the morning. 0 08/08/2021 Active Nystatin 336242 UNIT/GM External Powder (Nystop)Indications: Lydia rash of [...] XL)Indications:Non-i schemic cardiomyopathy (HCC),Coronary artery disease involving the [place] coronary artery of [place] heart without angina pectoris,HTN, goal below 140/90 [...] disease, without long-term current use of insulin ([facility]),Type 2 diabetes mellitus with hemoglobin A1c goal of less than 8.0% ([facility]) TEST UP TO FOUR TIMES DAILY [...] Tablet 3 07/08/2023 Active OneTouch Delica Plus [id number] :Type 2 diabetes mellitus with hemoglobin A1c goal of less than 8.0% (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 Last Assessment & Plan: [facility] Triage Call: Reviewed last C&S - [...] Continue synthroid Coronary artery disease invo lving the [place] coronary artery of [place] heart without angina pectoris 07/03/2012 Overview: 60% [...] as of this encounter (statuses as of 07/30/2023) Resolved Problems Problem Noted Date Diagnosed Date [...] as of this encounter (statuses as of 07/30/2023) Immunizations Name Administration Dates Next Due COVID-19 mRNA, LNP-s, No Pre serve, 2-Dose Series ([employer]Hop) 08/29/2021,10/23/2020,10/02/2020 Covid-19, Mrna, Lnp-s, Pf, B ivalent, [...] Sign Reading Time Taken Comments Blood Pressure 108/68 07/29/2023 2:56 PM EST Pulse 72 07/29/2023 2:56 PM EST Temperature 36.1 C (97 F) 07/29/2023 2:56 PM EST Respiratory Rate 18 07/29/2023 2:56 PM EST Oxygen Saturation 91% 07/29/2023 2:56 PM EST Inhaled Oxygen Concentration - - Weight 106.1 kg (234 lb) 07/29/2023 2:56 PM EST Height - - Body Mass Index 44.21 02/26/2023 10:32 AM EDT documented in this encounter Progress Notes * Destiny Schultz RN - 07/29/2023 2:46 PM EST [facility] Manager Tele[employer] Visit Date: 07/29/2023 Time: 2:46 PM Name: Regla Stiles : 1935 Current Concerns: Patient seen for follow up- h/o falls/ UTI, CHF, CKD, DM2 Reports doing well. Blood sugar- 134 Weight 234lb Recent Urology appointment- taking Macrobid BID Daughter reports intermittent weakness. Caregiver present for visit. VS wnl Lungs clear bilaterally Sob with exertion Chronic BLE lymphedema Voiding without difficulty- urine cloudy- denies foul smell. Bowels wnl- per report Appetite good Taking fluids Problems/Symptoms: Review of Systems Constitutional: Negative. HENT: Negative. Eyes: Negative. Respiratory: Positive for shortness of breath. Cardiovascular: Negative. Gastrointestinal: Negative. Endocrine: Negative. Genitourinary: Negative. Musculoskeletal: Negative. Skin: Negative. Allergic/Immunologic: Negative. Neurological: Negative. Hematological: Negative. Psychiatric/Behavioral: Negative. Physical Exam: BP 108/68 (BP Site: Right Arm, BP Position: Sitting, BP Cuff Size: Regular) | Pulse 72 | Temp 36.1 C (97 F) (Tympanic) | Resp 18 | Wt 106.1 kg (234 lb) | SpO2 91% | BMI 44.21 kg/m | BSA 2.14 m Pain 0 Physical Exam Constitutional: Appearance: Normal appearance. Cardiovascular: Rate and Rhythm: Normal rate and regular rhythm. Pulses: Normal pulses. Pulmonary: Effort: Pulmonary effort is normal. Breath sounds: Normal breath sounds. Abdominal: General: Bowel sounds are normal. Palpations: Abdomen is soft. Musculoskeletal: General: Normal range of motion. Right lower leg: Edema present. Left lower leg: Edema present. Skin: General: Skin is warm and dry. Capillary Refill: Capillary refill takes 2 to 3 seconds. Neurological: General: No focal deficit present. Mental Status: She is alert and oriented to person, place, and time. Psychiatric: Mood and Affect: Mood normal. Behavior: Behavior normal. [facility]-10 Completed this Visit: No. No falls since last visit Treatment/Plan: Oxygen at 2L via n/c at HS Continue medications as prescribed Keep all upcoming MD appointments Fall precautions Low na diet Blood sugar daily Weigh daily RN CM follow up in 5 weeks Home Interventions Provided: Reinforced current Plan of Care, including self-management and medication regimen Patient Needs to Remember: Call [facility] with any medical concerns/ red flags Referrals Needed: N/a Follow Up: Is there cellular connectivity/connectivity in the home? Yes Does the patient have internet in the home? Yes Patient encouraged to call the intake phone number for all urgent but not emergent issues. Scheduled to follow up with patient in 5 weeks. Destiny Byers RN 07/29/2023 2:46 PM documented in this encounter Plan of Treatment Upcoming Encounters Date Type Department Care Team (Late st Contact Info) Description 08/04/2023 1:30 PM EST [facility] Visit [facility], [facility] [address] [place] [address] Marija Londono RN [address] [place] [address] 08/05/2023 10:00 AM EST Scheduled Telephone [facility] [place], [facility] [address] [place] [address] Coordinator, [facility] [address] [place] [address] 08/08/2023 1:00 PM EST Telemedicine Pharmacy, [address] [place] [address] [place] [address] 09/02/2023 12:30 PM EST [facility] Visit [facility], [facility] 132 [facility] [place] [address] Destiny Schultz RN 132 [place] [address] 10/08/2023 1:30 PM EST Telemedicine Urology, [facility] 132 [place] [address] Chandler Pena MD [address] [address] 10/22/2023 2:00 PM EST Office Visit Cardiology, [facility] 132 [place] [address] Mariano Patel MD [address] [place] [address] 12/03/2023 3:00 PM EDT Office Visit Dermatology [address] [place] [address] Sheryl Pena PA-C [address] [place] [address] [place] [address] 12/08/2023 1:00 PM EDT Office Visit Ophthalmology, [facility] 132 [place] [address] Romel Mcclelland T, [address] [address] 01/06/2024 1:30 PM EDT Cardiac Studies Cardiology [address] [place] [address] [facility] [address] [place] [address] 03/30/2024 3:40 PM EDT Office Visit Family Medicine [address] [place] [phone] Verónica Benavides MD [address] [place] [address] [place] [address] Health Maintenance Due Date Last Done Comments [...] Additional history exists CKD PHOS USE SMARTSET 83679 02/08/2024 06/1 01/2023, 08/07/2021, 11/09/2019, Additional history exists TSH 03/25/2024 03/25/2023, 07/0 10/2022, 10/28/2022, Additional history exists CKD HGB USE SMARTSET 38044 05/26/202405/26, 05/26/2023, 04/07/2023, Additional history exists Pneumococcal [...] on File Type Date Recorded 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
--- OUTSIDE RECORDS SUMMARY | 2023-12-10 00:43 | External Medical Summary | Summary of Care ---
Author Name Unknown Organization [facility] Address [address] [place] [address] Phone [phone] Care Team Providers Care Quantitative Consultant Name Role Phone Verónica Benavides MD Primary Care Provide r Reason for Visit * Reason Onset Date Comments Medication Refill 07/11/2023 Re: Torsemide 20MG Tablet Encounter Details Date Type Department Care Team (Late st Contact Info) Description 07/11/2023 Refill [facility] [address] [place] [address] Aroldo Telles PA-C [address] [place] [address] Heart failure, systolic, due to idiopathic cardiomyopathy (HCC) Allergies Active Allergy Reactions Criticality Noted Date Comments Adhesive Tape Medium 01/30/2022 Ibuprofen Hives 01/13/2012 Aspirin Hives,Rash 09/15/2000 Sulfamethoxazole-Trimeth oprim Nausea/vomiting,Othe r (Please comment) 10/27/2020 Dizziness Ciprofloxacin Hcl 06/16/2019 Hoarse, dizzy,disoriented Morphine 09/21/2021 Blacked out Penicillins Hives,Rash 09/15/2000 Prednisone 12/30/2017 Weakness/memory changes/blurred vision documented as of this encounter (statuses as of 07/11/2023) Medications Medication Sig Dispensed Refills Start Date [...] in the morning. 0 08/08/2021 Active Nystatin 504146 UNIT/GM External Powder (Nystop)Indications :Lydia rash of [...] XL)Indications:Non- ischemic cardiomyopathy (HCC),Coronary artery disease involving [place] coronary artery of [place] heart without angina pectoris,HTN, goal below 140/90 Take 1 Tablet by mouth every evening. 90 Tablet 11 02/27/2023 Active Spironolactone 25 MG Oral Tablet (Aldactone)Indicati ons:Non-ischemic cardiomyopathy (HCC) Take 0.5 Tablets by mouth in the morning. 45 Tablet 3 02/27/2023 Active metOLazone 2.5 MG Oral Tablet (Zaroxolyn) Take one tablet only when directed by clinician. 5 Tablet 0 03/12/2023 Active Estrogens Conjugated 0.625 MG/GM Vaginal Cream (Premarin) Administer 0.5 g into the vagina every night at bedtime. Pea-sized amount around vulvar area nightly 30 g 5 04/22/2023 Active Benzonatate 100 MG Oral Capsule Take 1 Capsule by mouth 3 times a day as needed for Cough. 30 Capsule 1 04/29/2023 Active Clotrimazole 1 % External Cream (Lotrimin)Indicatio [...] of insulin ([facility]),Type 2 diabetes mellitus with hemoglobin A1c goal of less than 8.0% ([facility]) TEST UP TO FOUR TIMES DAILY [...] a week. 2 mL 3 06/27/2023 Active Nitrofurantoin Monohyd Macro 100 MG Oral Capsule (Macrobid) Take 1 Capsule by mouth at bedtime. With food. 30 Capsule 3 07/08/2023 Active Myrbetriq 25 MG Oral Tablet Extended Release 24 Hour (Mirabegron ER) Take 1 Tablet by mouth in the morning. 90 Tablet 3 07/08/2023 Active Torsemide 20 MG Oral Tablet (Demadex)Indication s:Heart failure, systolic, due to idiopathic cardiomyopathy (HCC) Take 60 mg by mouth in the morning, 40 mg by mouth in the afternoon. Additional 20 mg in the afternoon ONLY if directed by health care provider for weight gain of 3 lbs or more. 180 Tablet 3 07/11/2023 Active Torsemide 20 MG Oral Tablet (Demadex)Indication s:Heart failure, systolic, due to idiopathic cardiomyopathy (HCC) Take 60 mg by mouth in the morning, 40 mg by mouth in the afternoon. Additional 20 mg in the afternoon ONLY if directed by health care provider for weight gain of 3 lbs or more. 180 Tablet 3 12/05/2022 3 Discontinu ed(Refill) documented as of this encounter (statuses as of 07/11/2023) Active Problems Problem Noted Date Diagnosed Date [...] Continue synthroid Coronary artery disease invo lving [place] coronary artery of [place] heart without angina pectoris 07/03/2012 Overview: 60% [...] as of this encounter (statuses as of 07/11/2023) Resolved Problems Problem Noted Date Diagnosed Date [...] as of this encounter (statuses as of 07/11/2023) Immunizations Name Administration Dates Next Due COVID-19 mRNA, LNP-s, No Pre serve, 2-Dose Series (BugBuster) 08/29/2021,10/23/2020,10/02/2020 Covid-19, Mrna, Lnp-s, Pf, B ivalent, [...] encounter Miscellaneous Notes * Telephone Encounter - Aroldo Telles PA-C - 07/11/2023 5:06 PM ESTSigned Prescriptions: Disp Refills Torsemide 20 MG Oral Tablet (Demadex) 180 Ta*3 Sig: Take 60 mg by mouth in the morning, 40 mg by mouth in the afternoon. Additional 20 mg in the afternoon ONLY if directed by health care provider for weight gain of 3 lbs or more. Authorizing Provider: AROLDO TELLES * Telephone Encounter - Tonie Painting OSA - 07/11/2023 9:15 AM EST Please authorize with refills, as appropriate. Thank you, BETTY Lyon documented in this encounter Plan of Treatment Upcoming Encounters Date Type Department Care Team (Late st Contact Info) Description 07/29/2023 8:30 AM EST [facility] Visit [facility] [address] [place] [address] Destiny Schultz, POPPY [address] [place] [address] 08/04/2023 1:30 PM EST [facility] Visit [facility] 132 [facility] [place] [address] Marija Londono, RN [address] [place] [address] 08/05/2023 10:00 AM EST Scheduled Telephone [facility], [facility] [address] [place] [address] Coordinator, [facility] [address] [place] [address] 08/08/2023 1:00 PM EST Telemedicine Pharmacy, [address] [place] [address] [place] [address] 10/08/2023 1:30 PM EST Telemedicine Urology, [facility] 132 [facility] [place] [address] Chandler Pena MD 27 [facility] [address] [place] [address] 10/22/2023 2:00 PM EST Office Visit Cardiology, [facility] 132 [facility] [place] [address] Mariano Ptael MD [address] [place] [address] 12/03/2023 3:00 PM EDT Office Visit Dermatology [address] [place] [address] Sheryl Pena PA-C [address] [place] [address] [place] [address] 12/08/2023 1:00 PM EDT Office Visit Ophthalmology, [facility] 132 [facility] [place] [address] Romel Mcclelland, DO [facility], [place] [address] 01/06/2024 1:30 PM EDT Cardiac Studies Cardiology [address] [place] [address] Page[facility] [address] [place] [address] 03/30/2024 3:40 PM EDT Office Visit Family Medicine [address] [place] [phone] Verónica Benavides MD [address] [place] [address] [place] [address] Health Maintenance Due Date Last Done Comments [...] Additional history exists CKD PHOS USE SMARTSET 37930 02/08/2024 06/1 01/2023, 08/07/2021, 11/09/2019, Additional history exists TSH 03/25/2024 03/25/2023, 07/0 10/2022, 10/28/2022, Additional history exists CKD HGB USE SMARTSET 56674 05/26/202405/26, 05/26/2023, 04/07/2023, Additional history exists Pneumococcal [...] Documents on File Type Date Recorded Patient Fsr Expl anation Advance Directives and Living Will 08/10/2021 ADVANCE DIRECTIVE / LIVING WILL LIVING WILL Healthcare Agents on File Name Relationship Healthcare Agent Relationshi p Communication Josselyn Judd Adult Child Health Care Power of Attor nathalie Care Teams Quantitative Consultant Relationship Specialty Start Date End Date Verónica Benavides MD [address] [place] [address] [place] [address] PCP - General Family Medicine 09/16/14 documented as of this encounter
--- OUTSIDE RECORDS SUMMARY | 2023-12-10 00:43 | External Medical Summary | Summary of Care ---
Author Name Unknown Organization [facility] Address [address] [place] [address] Phone [phone] Care Team Providers Care Personal Trainer Name Role Phone Verónica Benavides MD Primary Care Provide r Reason for Visit * Reason Onset Date Comments [facility]: Acute 07/09/2023 Encounter Details Date Type Department Care Team ([facility] Contact Info) Description 07/09/2023 2:00 PM EST Scheduled Telephone [facility], [facility] 132 [employer] [place] [address] Coordinator, [facility] 132 [facility] [place] [address] Allergies Active Allergy Reactions Criticality Noted Date [...] in the morning. 0 1 Active Nystatin 151705 UNIT/GM External Powder (Nystop)Indication s:Lydia rash of [...] XL)Indications:Non -ischemic cardiomyopathy (HCC),Coronary artery disease involving [place] coronary artery of [place] heart without angina pectoris,HTN, goal below 140/90 [...] Tablet 3 3 Active OneTouch Delica Plus [id number] TEST UP TO FOUR TIMES DAILY, E11.9 [...] 06/29/2021 Last Assessment & Plan: [facility] Triage Call: Reviewed last C&S - [...] Continue synthroid Coronary artery disease invo lving [place] coronary artery of [place] heart without angina pectoris 07/03/2012 Overview: 60% [...] mRNA, LNP-s, No Pre serve, 2-Dose Series ([employer]) 08/29/2021,10/23/2020,10/02/2020 Covid-19, Mrna, Lnp-s, Pf, B ivalent, [...] Telephone Encounter - Tali Patel RN - 07/14/2023 9:43 AM EST Spoke with patients daughter Josselyn she is aware of Dr. Pena recommendations States she spoke with urology office this am Macrobid increased to BID x [address] judy Patel RN, BSN [facility] meter readers supervisorMechanic Chief * Telephone Encounter - Paris Santos LPN [...] significant improvement with completion of BID macrobid. Confirmed with daughter that patient is using premarin as instructed. Thank you Sabra * Telephone Encounter - [...] [facility] Telephonic Nurse Follow-Up Call [facility] Subprogram: Primary Care at Home Follow [...] before starting DTP Instructed DTR to call [facility] with weight before initiating any additional medication (pt has both metolazone,potassium,and takes torsemide but no instructions regarding potassium when placed on DTP) DTR will call [facility] tomorrow if weight is still up Care teams please advise...since UTIs never seem to clear and pt is having trouble with urination can bladder scan be done for residual urine? Disposition: Routed to [facility] and/or [facility] Care Team for further advice Future Visits Scheduled: Future Appointments-next 60 days Date/Time Provider Specialty Dept Phone 07/29/2023 8:30 AM Destiny Schultz, RN [facility] [phone] 08/04/2023 1:30 PM Marija Londono RN [facility] [phone] 08/05/2023 10:00 AM [facility] [phone] 08/08/2023 1:00 PM [facility] [phone] 10/08/2023 1:30 PM Chandler Pena MD Urology [phone] 10/22/2023 2:00 PM (Arrive by 1:45 PM) Mariano Patel MD Cardiology [phone] 12/03/2023 3:00 PM (Arrive by 2:45 PM) Sheryl Pena PA-C Dermatology [phone] 12/08/2023 1:00 PM Romel Mcclelland, Ophthalmology [phone] 01/06/2024 1:30 PM (Arrive by 1:15 PM) Aleta Abel [facility] Cardiology [phone] 03/30/2024 3:40 PM (Arrive by 3:25 PM) Verónica Benavides MD Family Medicine [phone] Tali Patel RN documented in this encounter Plan of Treatment Upcoming Encounters Date Type Department Care Team (Late st Contact Info) Description 07/29/2023 8:30 AM EST [facility] Visit [facility] [place], [facility] [address] [place] [address] Destiny Schultz, POPPY [address] [place] [address] 08/04/2023 1:30 PM EST [facility] Visit [facility], [facility] [address] [place] [address] Marija Londono RN 132 [facility] [place] [address] 08/05/2023 10:00 AM EST Scheduled Telephone [facility], [facility] [address] [place] [address] Coordinator, [facility] [address] [place] [address] 08/08/2023 1:00 PM EST Telemedicine Pharmacy, [address] [place] [address] [place] [address] 10/08/2023 1:30 PM EST Telemedicine Urology, [address] [place] [address] Chandler Pena MD 27 [facility] [address] [place] [address] 10/22/2023 2:00 PM EST Office Visit Cardiology, [address] [place] [address] Mariano Patel MD [address] [place] [address] 12/03/2023 3:00 PM EDT Office Visit Dermatology [address] [place] [address] Sheryl Pena PA-C [address] [place] [address] [place] [address] 12/08/2023 1:00 PM EDT Office [address]mology, [address] [address] Romel Mcclelland T, DO [address] [place] [address] 01/06/2024 1:30 PM EDT Cardiac Studies Cardiology [address] [place] [address] [facility] [address] [place] [address] 03/30/2024 3:40 PM EDT Office Visit Family Medicine [address] [place] [phone] Verónica Benavides MD [address] [place] [address] [place] [address] Health Maintenance Due Date Last Done Comments [...] Additional history exists CKD PHOS USE SMARTSET 91110 02/08/202401/23, 08/07/2021, 11/09/2019, Additional history exists TSH 03/25/2024 03/25/2023, 07/0 10/2022, 10/28/2022, Additional history exists CKD HGB USE SMARTSET 87906 05/26/202405/26, 05/26/2023, 04/07/2023, Additional history exists Pneumococcal [...] Documents on File Type Date Recorded 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 Communication Josselyn [facility] Health Care Power of Attor nathalie Care Teams Personal Trainer Relationship Specialty Start Date End Date Verónica Benavides MD [address] [place] [address] [place] [address] PCP - General Family Medicine 09/16/14 documented as of this encounter
--- OUTSIDE RECORDS SUMMARY | 2023-12-10 00:43 | External Medical Summary | Summary of Care ---
Author Name Unknown Organization [facility] Address [address] [place] [address] Phone [phone] Care Team Providers Care Insulator Apprentice Name Role Phone Verónica Benavides MD Primary Care Provide r Reason for Visit * Reason Onset Date Comments [facility]: Acute 07/09/2023 Encounter Details Date Type Department Care Team ([facility] Contact Info) Description 07/09/2023 2:00 PM EST Scheduled Telephone [facility], [facility] 132 [facility] [place] [address] Coordinator, [facility] [place] 132 [facility] [place] [address] Allergies Active Allergy Reactions Criticality Noted Date [...] in the morning. 0 1 Active Nystatin 475649 UNIT/GM External Powder (Nystop)Indication s:Lydia rash of [...] XL)Indications:Non -ischemic cardiomyopathy (HCC),Coronary artery disease involving yocha dehe coronary artery of yocha dehe heart without angina pectoris,HTN, goal below 140/90 [...] Tablet 3 3 Active OneTouch Delica Plus [id number] TEST UP TO FOUR TIMES DAILY, E11.9 [...] Continue synthroid Coronary artery disease invo lving yocha dehe coronary artery of yocha dehe heart without angina pectoris 07/03/2012 Overview: 60% [...] mRNA, LNP-s, No Pre serve, 2-Dose Series (AroundWire) 08/29/2021,10/23/2020,10/02/2020 Covid-19, Mrna, Lnp-s, Pf, B ivalent, [...] before starting DTP Instructed DTR to call [facility] with weight before initiating any additional medication (pt has both metolazone,potassium,and takes torsemide but no instructions regarding potassium when placed on DTP) DTR will call [facility] tomorrow if weight is still up Care teams please advise...since UTIs never seem to clear and pt is having trouble with urination can bladder scan be done for residual urine? Disposition: Routed to [facility] and/or [facility] Care Team for further advice Future Visits Scheduled: Future Appointments-next 60 days Date/Time Provider Specialty Dept Phone 07/29/2023 8:30 AM Destiny Schultz, POPPY [facility] [phone] 08/04/2023 1:30 PM Marija Londono RN [facility] [phone] 08/05/2023 10:00 AM Lise Connell [facility] [phone] 08/08/2023 1:00 PM [facility] [phone] 10/08/2023 1:30 PM Chandler Pena MD Urology [phone] 10/22/2023 2:00 PM (Arrive by 1:45 PM) Mariano Patel MD Cardiology [phone] 12/03/2023 3:00 PM (Arrive by 2:45 PM) Sheryl Pena PA-C Dermatology [phone] 12/08/2023 1:00 PM Romel Mcclelland, DO Ophthalmology [phone] 01/06/2024 1:30 PM (Arrive by 1:15 PM) Aleta Abel [facility] Cardiology [phone] 03/30/2024 3:40 PM (Arrive by 3:25 PM) Verónica Benavides MD Family Medicine [phone] Tali Patel, POPPY documented in this encounter Plan of Treatment Upcoming Encounters Date Type Department Care Team (Late st Contact Info) Description 07/29/2023 8:30 AM EST Home Visit [facility], [facility] 132 [facility] [place] [address] Destiny Schultz RN 132 [facility] [place] [address] 08/04/2023 1:30 PM EST Home Visit [facility], [facility] [address] [place] [address] Marija Londono RN 132 [facility] [place] [address] 08/05/2023 10:00 AM EST Scheduled Telephone [facility] [place], [facility] 132 [facility] [place] [address] Coordinator, [facility] [place] [facility] [place] [address] 08/08/2023 1:00 PM EST Telemedicine Pharmacy, [address] [place] [address] [place] [address] 10/08/2023 1:30 PM EST Telemedicine Urology, [facility] [address] [place] [address] Chandler Pena MD 27 [facility] [address] [place] [address] 10/22/2023 2:00 PM EST Office Visit Cardiology, [facility] 132 [facility] [place] [address] Mariano Patel MD [address] [place] [address] 12/03/2023 3:00 PM EDT Office Visit Dermatology [address] [place] [address] Sheryl Pena PA-C [address] [place] [address] [place] [address] 12/08/2023 1:00 PM EDT Office Visit Ophthalmology, [facility] 132 [facility] [place] [address] Romel Mcclelland T, [address] [phone] 01/06/2024 1:30 PM EDT Cardiac Studies Cardiology [address] [place] [address] Aleta Abel [address] [place] [address] 03/30/2024 3:40 PM EDT Office Visit Family Medicine [address] [place] [phone] Verónica Benavides MD [address] [place] [address] [place] [address] Health Maintenance Due Date Last Done Comments [...] Additional history exists CKD PHOS USE SMARTSET 39232 02/08/202401/23, 08/07/2021, 11/09/2019, Additional history exists TSH 03/25/2024 03/25/2023, 10/2022, 10/28/2022, Additional history exists CKD HGB USE SMARTSET 78976 05/26/202405/26, 05/26/2023, 04/07/2023, Additional history exists Pneumococcal [...] Documents on File Type Date Recorded Patient Box Liner Expl anation Advance Directives and Living Will 08/10/2021 ADVANCE DIRECTIVE / LIVING WILL LIVING WILL Healthcare Agents on File Name Relationship Healthcare Agent [facility] Communication Josselyn Judd Adult Child Health Care Power of Attor nathalie Care Teams Insulator Apprentice Relationship Specialty Start Date End Date Verónica Benavides MD [address] [place] [address] [place] [phone] PCP - General Family Medicine 09/16/14 documented as of this encounter
--- OUTSIDE RECORDS SUMMARY | 2023-12-10 00:43 | External Medical Summary | Summary of Care ---
Author Name Unknown Organization [facility] Address [address] [place] [address] Phone [phone] Care Team Providers Care Strategic Partnership Representative Name Role Phone Verónica Jiang MD Primary Care Provide r Reason for Visit * Reason Onset Date Comments Medication Refill 07/14/2023 Encounter Details Date Type Department Care Team (Late st Contact Info) Description 07/14/2023 Refill Urology Jhon Zayas [address] [place] [address] [place] [address] Chandler Pena MD [address] [place] [address] [place] [address] Allergies Active Allergy Reactions Criticality Noted Date [...] in the morning. 0 08/08/2021 Active Nystatin [id number] UNIT/GM External Powder (Nystop)Indications :Lydia rash of [...] XL)Indications:Non- ischemic cardiomyopathy (HCC),Coronary artery disease involving reno-sparks coronary artery of reno-sparks heart without angina pectoris,HTN, goal below 140/90 [...] Tablet 3 07/08/2023 Active OneTouch Delica Plus [id number] s:Type 2 diabetes mellitus with hemoglobin A1c [...] area nightly 30 g 5 07/14/2023 Active Estrogens Conjugated 0.625 MG/GM Vaginal Cream (Premarin) Administer 0.5 g into the vagina every night at bedtime. Pea-sized amount around vulvar area nightly 30 g 5 04/22/2023 3 Discontinu ed(Refill) documented as of this [...] 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 Last Assessment & Plan: [facility] Triage Call: Reviewed last C&S - [...] Continue synthroid Coronary artery disease invo lving reno-sparks coronary artery of reno-sparks heart without angina pectoris 07/03/2012 Overview: 60% [...] No Pre serve, 2-Dose Series (Pfizer) 08/29/2021,10/23/2020,10/02/2020 Covid-19, Mrna, Lnp-s, Pf, B ivalent, 30 Mcg, IM, 12 yrs and above (Pfizer) 08/02/2022 Pneumococcal Conjugate Vacc, 13 Valent (Prevnar) 09/11/2015 Pneumococcal Polysaccharide PPV23 (Pneumovax) 05/25/2008,06/23/2001 SEASONAL INFLUENZA, PF, 6 M & Above, IM , (FLULAVAL or FLUZONE) 06/04/2019,04/30/2018 Season Influenza, Quad, PF, Adjuvanted, 65+ Yrs, IM (FLUAD) 06/06/2020 Seasonal Influenza Virus Vac cine, Unspecified Formulation 06/04/2019,04/30/2018,06/05/2017,05/25,05/23/2017,08/12/2016,04/22/2014 ,05/17/2013,04/29/2012,06/21/2011,100 10/2009,05/31/2009,07/01/2008, 7,08/08/2006,06/21/2005,07/05/2003,06/2002,06/23/2001,08/07/2000 Seasonal Influenza, Quadriva lent Hd (Fluzone [...] Telephone Encounter - Verónica Jiang MD - 07/14/2023 11:33 AM EST Signed Prescriptions: Disp Refills Estrogens Conjugated 0.625 MG/GM Vaginal C*30 g 5 Sig: Administer 0.5 g into the vagina every night at bedtime. Pea-sized amount around vulvar area nightly Authorizing Provider: VERÓNICA JIANG * Telephone Encounter - Vilma Broderick CMA - 07/14/2023 11:26 AM ESTPending Prescriptions: Disp Refills Estrogens Conjugated 0.625 MG/GM Vaginal C*30 g 5 Sig: Administer 0.5 g into the vagina every night at bedtime. Pea-sized amount around vulvar area nightly * Telephone Encounter - Vilma Broderick CMA - 07/14/2023 11:25 AM EST Pending Prescriptions: Disp Refills Estrogens Conjugated 0.625 MG/GM Vaginal *30 g 5 Sig: Administer 0.5 g into the vagina every night at bedtime. Pea-sized amount around vulvar area nightly Last Visit: Visit date not found (in office), 02/26/2023 (telemedicine) Next Visit: Visit date not found Last date the medication was ordered: 04/22/2023 Patient Active Problem List Diagnosis Code GENERAL OSTEOARTHROSIS M15.9 Hypothyroidism E03.9 DYSLIPIDEMIA, GOAL LDL BELOW 100 E78.5 Exertional dyspnea R06.09 Aspirin allergy Z88.8 LBBB (left bundle branch block) I44.7 First degree atrioventricular block I44.0 Coronary artery disease involving reno-sparks coronary artery of reno-sparks heart without angina pectoris I25.10 ACEI/ARB contraindicated ET1967 Type 2 diabetes mellitus with hemoglobin A1c goal of less than 8.0% ([facility]) E11.9 Non-ischemic cardiomyopathy ([facility]) I42.8 Heart failure, systolic, due to idiopathic cardiomyopathy ([facility]) I50.20, I42.9 Aortic valve stenosis I35.0 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 Type 2 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 disease, without long-term current use of insulin ([facility]) E11.22, N18.31 Lymphedema of both lower extremities I89.0 Benign paroxysmal vertigo of both ears H81.13 Gastroesophageal reflux disease without esophagitis K21.9 Type 2 diabetes mellitus with mild nonproliferative diabetic retinopathy without macular edema, right eye ([facility]) E11.3291 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 History of recurrent UTI (urinary tract infection) Z87.440 Trochanteric bursitis of right hip M70.61 Ventral hernia without obstruction or gangrene K43.9 Impaired mobility and ADLs Z74.09, Z78.9 Bilateral impacted cerumen H61.23 Constipation K59.00 Acute cystitis without hematuria N30.00 Transient confusion R41.0 Postmenopausal atrophic vaginitis N95.2 Labs: Lab Results Component Value Date/Time CREATININE - [facility] 1.0 05/26/2023 10:11 AM CREATININE - [facility] 1.1 (H) 09/13/2020 12:57 PM CREATININE, RANDOM URINE - [facility] 45 02/07/2023 04:27 PM CREATININE, RANDOM URINE - [facility] 31 05/24/2019 04:18 PM CREATININE-OUTSIDE LAB 0.86 05/31/2018 12:00 AM Lab Results Component Value Date/Time POTASSIUM - [facility] 3.7 05/26/2023 10:11 AM POTASSIUM - [facility] 4.5 09/13/2020 12:57 PM POTASSIUM-OUTSIDE LAB 4.2 05/31/2018 12:00 AM Lab Results Component Value Date/Time TSH - [facility] 4.22 (H) 03/25/2023 06:08 AM TSH - [facility] 6.83 (H) 07/14/2020 12:47 PM TSH - OUTSIDE LAB 3.030 05/31/2018 12:00 AM Lab Results Component Value Date/Time LDL CHOLESTEROL (CALCULATED) - [facility] 95 11/28/2020 03:04 PM LDL CHOLESTEROL (CALCULATED) - [facility] 90 11/09/2019 03:52 PM LDL CHOLESTEROL (CALCULATED) - [facility] 76 09/01/2018 03:55 PM LDL CHOLESTEROL (DIRECT MEASURE) - [facility] 81 05/24/2022 10:52 AM LDL CHOLESTEROL (DIRECT MEASURE) - [facility] NOT APPLICABLE 11/09/2019 03:52 PM LDL CHOLESTEROL (DIRECT MEASURE) - [facility] NOT APPLICABLE 09/01/2018 03:55 PM LDL CHOLESTEROL (DIRECT MEASURE) - [facility] 106 08/27/2016 03:06 PM LDL CHOLESTEROL (DIRECT MEASURE) - [facility] 125 11/27/2001 11:13 AM Lab Results Component Value Date/Time ALT - [facility] 13 07/18/2021 09:24 AM ALT - [facility] 15 07/07/2020 11:05 AM Hemoglobin AIC Results: Lab Results Component Value Date/Time HEMOGLOBIN A1C - [facility] 9.6 (H) 02/11/2023 01:40 PM HEMOGLOBIN A1C - [facility] 7.6 (H) 11/01/2022 06:18 AM HEMOGLOBIN A1C - [facility] 6.9 (H) 01/11/2022 08:25 AM HEMOGLOBIN A1C - [facility] 6.4 (H) 06/06/2020 11:14 AM HEMOGLOBIN A1C - [facility] 6.5 (H) 11/09/2019 03:52 PM HEMOGLOBIN A1C - [facility] 6.2 (H) 07/09/2019 03:08 PM * Telephone Encounter - Paris Santos LPN - 07/14/2023 9:11 AM EST Refill of Premarin requested. Last appt: 04/22/2023 Next appt: 04/17/2024 Review of patient's allergies indicates: Allergen Reactions Adhesive Tape Advil [Ibuprofen] Hives Aspirin Hives and Rash Bactrim [Sulfamethoxazole-Trimethoprim] Nausea/vomiting and Other (Please comment) Dizziness Ciprofloxacin Hcl Hoarse, dizzy,disoriented Morphine Blacked out Penicillins Hives and Rash Prednisone Weakness/memory changes/blurred vision Thank you, Paris Santos LPN documented in this encounter Plan of Treatment Upcoming Encounters Date Type Department Care Team (Late st Contact Info) Description 07/29/2023 8:30 AM EST [facility] Visit [facility], [facility] [address] [place] [address] Destiny Schultz RN [address] [place] [address] 08/04/2023 1:30 PM EST [facility] Visit [facility], [facility] [address] [place] [address] Marija Londono RN [address] [place] [address] 08/05/2023 10:00 AM EST Scheduled Telephone [facility] [place], [facility] [address] [place] [address] Coordinator, [facility] [address] [place] [address] 08/08/2023 1:00 PM EST Telemedicine Pharmacy, [address] [place] [address] [place] [address] 10/08/2023 1:30 PM EST Telemedicine Urology, [facility] 132 [facility] [place] [address] Chandler Pena MD 27 [facility] [address] [place] [address] 10/22/2023 2:00 PM EST Office Visit Cardiology, [facility] 132 [facility] [place] [address] Mariano Patel MD 100 [place] [address] 12/03/2023 3:00 PM EDT Office Visit Dermatology [address] [place] [address] Sheryl Pena PA-C [address] [place] [address] [place] [address] 12/08/2023 1:00 PM EDT Office Visit Ophthalmology, [facility] 132 [facility] [place] [address] Romel Mcclelland T, DO [address] [place] [address] 01/06/2024 1:30 PM EDT Cardiac Studies Cardiology [address] [place] [address] Aleta Abel [facility] 132 [facility] [place] [address] 03/30/2024 3:40 PM EDT Office Visit Family Medicine [address] [place] [phone] Verónica Jiang MD [address] [place] [address] [place] [address] Health Maintenance Due Date Last Done Comments [...] Additional history exists CKD PHOS USE SMARTSET 89306 02/08/202401/23, 08/07/2021, 11/09/2019, Additional history exists TSH 03/25/2024 03/25/2023, 07/0 10/2022, 10/28/2022, Additional history exists CKD HGB USE SMARTSET 54916 05/26/202405/26, 05/26/2023, 04/07/2023, Additional history exists Pneumococcal [...] Documents on File Type Date Recorded Patient Base Filler Operator Expl anation Advance Directives and Living Will 08/10/2021 ADVANCE DIRECTIVE / LIVING WILL LIVING WILL Healthcare Agents on File Name Relationship Healthcare Agent Relationshi p Communication Josselyn Judd Adult Child Health Care Power of Attor nathalie Care Teams Strategic Partnership Representative Relationship Specialty Start Date End Date Verónica Jiang MD [address] [place] [address] [place] [address] PCP - General Family Medicine 09/16/14 documented as of this encounter
--- OUTSIDE RECORDS SUMMARY | 2023-12-10 00:44 | External Medical Summary | Summary of Care ---
Author Name Unknown Organization [facility] Address [address] [place] [address] Phone [phone] Care Team Providers Care Assistant Branch Manager Name Role Phone Verónica Benavides MD Primary Care Provide r Reason for Visit * Reason Onset Date Comments [facility]: Maintenance 07/08/2023 Encounter Details Date Type Department Care Team ([facility] Contact Info) Description 07/08/2023 1:00 PM EST Scheduled Telephone [facility], [facility] [address] [facility] [place] [address] Coordinator, [facility] [address] [employer] [place] [address] Allergies Active Allergy Reactions Criticality Noted Date Comments Adhesive Tape Medium 01/30/2022 Ibuprofen Hives 01/13/2012 Aspirin Hives,Rash 09/15/2000 Sulfamethoxazole-Trimeth oprim Nausea/vomiting,Othe r (Please comment) 10/27/2020 Dizziness Ciprofloxacin Hcl 06/16/2019 Hoarse, dizzy,disoriented Morphine 09/21/2021 Blacked out Penicillins Hives,Rash 09/15/2000 Prednisone 12/30/2017 Weakness/memory changes/blurred vision documented as of this encounter (statuses as of 07/08/2023) Medications Medication Sig Dispensed Refills Start Date [...] in the morning. 0 08/08/2021 Active Nystatin 801000 UNIT/GM External Powder (Nystop)Indications: Lydia rash of groin Apply topically to affected area 2 times a day . 60 g 11 01/03/2022 Active OneTouch Delica Plus [id number] TEST UP TO FOUR TIMES DAILY, E11.9 400 Each 1 05/24/2022 Active Probiotic Acidophilus BioBeads Oral Capsule Take [...] then irrigate. 120 mL 3 11/29/2022 Active Torsemide 20 MG Oral Tablet (Demadex)Indications :Heart failure, systolic, due to idiopathic cardiomyopathy (HCC) Take 60 mg by mouth in the morning, 40 mg by mouth in the afternoon. Additional 20 mg in the afternoon ONLY if directed by health care provider for weight gain of 3 lbs or more. 180 Tablet 3 12/05/2022 Active Omeprazole 20 MG Oral Capsule Delayed [...] XL)Indications:Non-i schemic cardiomyopathy (HCC),Coronary artery disease involving [place] coronary artery of [place] heart without angina pectoris,HTN, goal below 140/90 [...] area nightly 30 g 5 04/22/2023 Active Myrbetriq 25 MG Oral Tablet Extended Release 24 Hour (Mirabegron ER) Take 1 Tablet by mouth in the morning. 30 Tablet 1 05/14/2023 Active Benzonatate 100 MG Oral Capsule Take [...] a week. 2 mL 3 06/27/2023 Active documented as of this encounter (statuses as of 07/08/2023) Active Problems Problem Noted Date Diagnosed Date [...] 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 Last Assessment & Plan: [facility] Triage Call: Reviewed last C&S [...] Continue synthroid Coronary artery disease invo lving [place] coronary artery of [place] heart without angina pectoris 07/03/2012 Overview: 60% [...] as of this encounter (statuses as of 07/08/2023) Resolved Problems Problem Noted Date Diagnosed Date [...] as of this encounter (statuses as of 07/08/2023) Immunizations Name Administration Dates Next Due COVID-19 mRNA, LNP-s, No Pre serve, 2-Dose Series ([employer]) 08/29/2021,10/23/2020,10/02/2020 Covid-19, Mrna, Lnp-s, Pf, B ivalent, 30 Mcg, IM, 12 yrs and above ([employer]) 08/02/2022 Influenza, Whole Virus 08/07/2000 Pneumococcal Conjugate Vacc, 13 Valent (Prevnar) 09/11/2015 Pneumococcal Polysaccharide PPV23 (Pneumovax) 05/25/2008,06/23/2001 SEASONAL INFLUENZA, PF, 6 M & Above, IM , (FLULAVAL or FLUZONE) 06/04/2019,04/30/2018 Season Influenza, Quad, PF, Adjuvanted, 65+ Yrs, IM (FLUAD) 06/06/2020 Seasonal Influenza Virus Vac cine, Unspecified Formulation 06/04/2019,04/30/2018,06/05/2017,05/25,05/23/2017,08/12/2016,04/22/2014 ,05/17/2013,04/29/2012,06/21/2011,10/2009,05/31/2009,07/01/2008,,08/08/2006,06/21/2005,07/05/2003,06/2002,06/23/2001,08/07/2000 Seasonal Influenza, Quadriva lent Hd (Fluzone Hd) [...] Telephone Encounter - Aroldo Telles PA-C - 07/08/2023 10:56 AM EST [facility] Phone Encounter Thank you for your assistance in the care of this patient today. Reviewed phone message. I agree w/ the advice offered via phone by our intake nursing team. Please let me know via encounter or TT message if there is any change Thank you in advance, I appreciate it. Aroldo Telles PA-C * Telephone Encounter - Briseyda Rich RN - 07/08/2023 9:01 AM EST Images from the original note were not included. [facility] Telephonic Nurse Follow-Up Call [facility] Subprogram: Primary Care at Home Follow Up Call Type: 24 hour follow up Acute issue requiring follow-up call: Other: UTI symptoms Objective: 06/26/2023 3:50 PM 06/16/2023 3:59 PM [...] [facility] Negative 07/07/2023 QUANT URINE CULTURE GROWTH >100,000 colonies/mL Klebsiella oxytoca (A) 06/17/2023 Lab Results Component Value Date WBC AUTO [...] symptoms Current Concerns: Called and spoke with daughter/ Josselyn, she stated her mother was " very tired" last evening, still having the urinary urgency and foul smelling urine. She has not checked on her yet this morning. Her mother is scheduled for a video visit with Urology later today. Informed daughter her mothers urine results are back, and a urine culture is being performed. Daughter stated when an antibiotic is ordered please send to [facility] in [place] Disposition: Routed to [facility] and/or [facility] Care Team for further advice Future Visits Scheduled: Future Appointments-next 60 days Date/Time Provider Specialty Dept Phone 07/08/2023 1:00 PM Coordinator, Lenny Ian Lepe [facility] [phone] 07/08/2023 1:45 PM Chandler Pena MD Urology [phone] 07/09/2023 2:00 PM Coordinator [facility] [phone] 07/29/2023 8:30 AM Destiny Schultz RN [facility] [phone] 08/04/2023 1:30 PM Marija Londono RN [facility] [phone] 08/05/2023 10:00 AM CoordinatorLenny Ian Lepe [facility] [phone] 08/08/2023 1:00 PM [facility] [phone] 10/22/2023 2:00 PM (Arrive by 1:45 PM) Mariano Patel MD Cardiology [phone] 12/03/2023 3:00 PM (Arrive by 2:45 PM) Sheryl Pena PA-C Dermatology [phone] 12/08/2023 1:00 PM Romel Mcclelland, Ophthalmology [phone] 01/06/2024 1:30 PM (Arrive by 1:15 PM) Aleta Abel [facility] Cardiology [phone] 03/30/2024 3:40 PM (Arrive by 3:25 PM) Verónica Benavides MD Family Medicine [phone] Briseyda Rich RN Audio Visual Aids Director [facility] documented in this encounter Plan of Treatment Upcoming Encounters Date Type Department Care Team (Late st Contact Info) Description 07/08/2023 1:45 PM EST Telemedicine Urology, [facility] [address] [place] [address] Chandler Pena MD [address] [facility] [address] [place] [address] 07/09/2023 2:00 PM EST Scheduled Telephone [facility], [facility] 132 [facility] [place] [address] Coordinator, [facility] [place] [address] 07/29/2023 8:30 AM EST Home Visit [facility], [facility] [address] [place] [address] Destiny Schultz, POPPY [address] [place] [address] 08/04/2023 1:30 PM EST Home Visit [facility], [facility] [address] [place] [address] Marija Londono, RN [address] [facility] [place] [address] 08/05/2023 10:00 AM EST Scheduled Telephone [facility], [facility] [place] [address] Coordinator, [facility] [place] [address] 08/08/2023 1:00 PM EST Telemedicine Pharmacy, [address] [place] [address] [place] [address] 10/22/2023 2:00 PM EST Office Visit Cardiology, [address] [place] [address] Mariano Patel MD [address] [place] [address] 12/03/2023 3:00 PM EDT Office Visit Dermatology [address] [place] [address] Sheryl Pena PA-C [address] [place] [address] [place] [address] 12/08/2023 1:00 PM EDT Office Visit Ophthalmology, [facility] [address] [facility] [place] [address] Romel Mcclelland T, DO [address] [place] [id number] 01/06/2024 1:30 PM EDT Cardiac Studies Cardiology [address] [place] [address] Aleta Abel [facility] [address] [place] [address] 03/30/2024 3:40 PM EDT Office Visit Family Medicine [address] [place] [phone] Verónica Benavides MD [address] [place] [address] [place] [address] Health Maintenance Due Date Last Done Comments [...] Additional history exists CKD PHOS USE SMARTSET 92348 02/08/202401/23, 08/07/2021, 11/09/2019, Additional history exists TSH 03/25/2024 03/25/2023, 0710/2022, 10/28/2022, Additional history exists CKD HGB USE SMARTSET 44604 05/26/202405/26, 05/26/2023, 04/07/2023, Additional history exists Pneumococcal [...] Documents on File Type Date Recorded Patient Cafe Lead Expl anation Advance Directives and Living Will 08/10/2021 ADVANCE DIRECTIVE / LIVING WILL LIVING WILL Healthcare Agents on File Name Relationship Healthcare Agent [facility] Communication Josselyn Judd Adult Child Health Care Power of Attor nathalie Care Teams Assistant Branch Manager Relationship Specialty Start Date End Date Verónica Benavides MD [address] [place] [address] [place] [address] PCP - General Family Medicine 09/16/14 documented as of this encounter
--- OUTSIDE RECORDS SUMMARY | 2023-12-10 00:44 | External Medical Summary | Summary of Care ---
Author Name Unknown Organization [facility] Address [address] [place] [address] Phone [phone] Care Team Providers Care Supervisor Engraving Name Role Phone Verónica Benavides MD Primary Care Provide r Reason for Visit * Reason Onset Date Comments [facility]: Acute 07/09/2023 Encounter Details Date Type Department Care Team ([facility] st Contact Info) Description 07/09/2023 2:00 PM EST Scheduled Telephone [facility], [facility] 132 [facility] [place] [address] Coordinator, [facility] 132 [facility] [place] [address] Allergies Active Allergy Reactions Criticality Noted Date Comments Adhesive Tape Medium 01/30/2022 Ibuprofen Hives 01/13/2012 Aspirin Hives,Rash 09/15/2000 Sulfamethoxazole-Trimeth oprim Nausea/vomiting,Othe r (Please comment) 10/27/2020 Dizziness Ciprofloxacin Hcl 06/16/2019 Hoarse, dizzy,disoriented Morphine 09/21/2021 Blacked out Penicillins Hives,Rash 09/15/2000 Prednisone 12/30/2017 Weakness/memory changes/blurred vision documented as of this encounter (statuses as of 07/09/2023) Medications Medication Sig Dispensed Refills Start Date [...] in the morning. 0 08/08/2021 Active Nystatin 168321 UNIT/GM External Powder (Nystop)Indications: Lydia rash of groin Apply topically to affected area 2 times a day . 60 g 11 01/03/2022 Active OneTouch Delica Plus Gjzrjj13G TEST UP TO FOUR TIMES DAILY, E11.9 [...] XL)Indications:Non-i schemic cardiomyopathy (HCC),Coronary artery disease involving [place] coronary artery of [place] heart without angina pectoris,HTN, goal below [...] the morning. 90 Tablet 3 07/08/2023 Active documented as of this encounter (statuses as of 07/09/2023) Active Problems Problem Noted Date Diagnosed Date [...] Continue synthroid Coronary artery disease invo lving [place] coronary artery of [place] heart without angina pectoris 07/03/2012 Overview: [...] as of this encounter (statuses as of 07/09/2023) Resolved Problems Problem Noted Date Diagnosed Date [...] as of this encounter (statuses as of 07/09/2023) Immunizations Name Administration Dates Next Due COVID-19 mRNA, LNP-s, No Pre serve, 2-Dose Series (Ning) 08/29/2021,10/23/2020,10/02/2020 Covid-19, Mrna, Lnp-s, Pf, B ivalent, 30 Mcg, IM, 12 yrs and above (Ning) 08/02/2022 Pneumococcal Conjugate Vacc, 13 Valent (Prevnar) [...] Miscellaneous Notes * Telephone Encounter - Tali Patel, RN - 07/09/2023 1:52 PM EST Images from the original note were not included. [facility] Telephonic Nurse Follow-Up Call [facility] Subprogram: Primary Care at Home Follow Up [...] before starting DTP Instructed DTR to call [facility] with weight before initiating any additional medication (pt has both metolazone,potassium,and takes torsemide but no instructions regarding potassium when placed on DTP) DTR will call [facility] tomorrow if weight is still up Care teams please advise...since UTIs never seem to clear and pt is having trouble with urination can bladder scan be done for residual urine? Disposition: Routed to [facility] and/or [facility] Care Team for further advice Future Visits Scheduled: Future Appointments-next 60 days Date/Time Provider Specialty Dept Phone 07/29/2023 8:30 AM Destiny Schultz, RN [facility] [phone] 08/04/2023 1:30 PM Marija Londono RN [facility] [phone] 08/05/2023 10:00 AM [facility] [phone] 08/08/2023 1:00 PM [facility] [phone] 10/08/2023 1:30 PM Chandler Pena MD Urology [phone] 10/22/2023 2:00 PM (Arrive by 1:45 PM) Mariano Patel MD Cardiology [phone] 12/03/2023 3:00 PM (Arrive by 2:45 PM) hSeryl Pena PA-C Dermatology [phone] 12/08/2023 1:00 PM Romel Mcclelland, Ophthalmology [phone] 01/06/2024 1:30 PM (Arrive by 1:15 PM) Aleta Abel [facility] Cardiology [phone] 03/30/2024 3:40 PM (Arrive by 3:25 PM) Verónica Benavides MD Family Medicine [phone] Tali Patel RN documented in this encounter Plan of Treatment Upcoming Encounters Date Type Department Care Team (Late st Contact Info) Description 07/29/2023 8:30 AM EST Home Visit [facility], [facility] [address] [place] [address] Destiny Schultz, POPPY [address] [place] [address] 08/04/2023 1:30 PM EST Home Visit [facility], [facility] [address] [place] [address] Marija Londono RN 132 [facility] [place] [address] 08/05/2023 10:00 AM EST Scheduled Telephone [facility], [facility] [address] [place] [address] Coordinator, [facility] [address] [place] [address] 08/08/2023 1:00 PM EST Telemedicine Pharmacy, [address] [place] [address] [place] [address] 10/08/2023 1:30 PM EST Telemedicine Urology, [address] [place] [address] Chandler Pena MD 27 [facility] [address] [place] [address] 10/22/2023 2:00 PM EST Office Visit Cardiology, [address] [place] [address] Mariano Patel MD [address] [place] [address] 12/03/2023 3:00 PM EDT Office Visit Dermatology [address] [place] [address] Sheryl Pena PA-C [address] [place] [address] [place] [address] 12/08/2023 1:00 PM EDT Office [address] Op[address]mology, [address] [address] Romel Mcclelland T, [address] [address] 01/06/2024 1:30 PM EDT Cardiac Studies Cardiology [address] [place] [address] Page Pacer [address] [place] [address] 03/30/2024 3:40 PM EDT Office Visit Family Medicine [address] [place] [phone] Verónica Benavides MD [address] [place] [address] [place] [address] Health Maintenance Due Date Last Done Comments [...] Additional history exists CKD PHOS USE SMARTSET 61265 02/08/202401/23, 08/07/2021, 11/09/2019, Additional history exists TSH 03/25/2024 03/25/2023, 07/0 10/2022, 10/28/2022, Additional history exists CKD HGB USE SMARTSET 53517 05/26/202405/26, 05/26/2023, 04/07/2023, Additional history exists Pneumococcal [...] on File Type Date Recorded Patient Credit Support Specialist Expl anation Advance Directives and Living Will 08/10/2021 ADVANCE DIRECTIVE / LIVING WILL LIVING WILL Healthcare Agents on File Name Relationship Healthcare Agent [facility] Communication Josselyn Judd Adult Child Health Care Power of Attor nathalie Care Teams Supervisor Engraving Relationship Specialty Start Date End Date Verónica Benavides MD [address] [place] [address] [place] [address] PCP - General Family Medicine 09/16/14 documented as of this encounter
--- OUTSIDE RECORDS SUMMARY | 2023-12-10 00:44 | External Medical Summary | Summary of Care ---
Author Name Unknown Organization [facility] Address [address] [place] [address] Phone [phone] Care Team Providers Care Wire Stretcher Name Role Phone Verónica Jiang MD Primary Care Provide r Encounter Details Date Type Department Care Team (Late st Contact Info) Description 07/08/2023 1:45 PM EST Telemedicine Urology, [facility] [address] Chandler ePna MD [facility] [address] [place] [address] Dysuria*; Postmenopausal atrophic vaginitis; Chronic bacteriuria [...] in the morning. 0 08/08/2021 Active Nystatin 043426 UNIT/GM External Powder (Nystop)Indications :Lydia rash of groin Apply topically to affected area 2 times a day . 60 g 11 01/03/2022 Active OneTouch Delica Plus Ptaedt07J TEST UP TO FOUR TIMES DAILY, E11.9 [...] 11/29/2022 Active Torsemide 20 MG Oral Tablet (Demadex)Indication [...] XL)Indications:Non- ischemic cardiomyopathy (HCC),Coronary artery disease involving [place] coronary artery of [place] heart without angina pectoris,HTN, goal below 140/90 [...] the morning. 90 Tablet 3 07/08/2023 Active Myrbetriq 25 MG Oral Tablet Extended Release 24 Hour (Mirabegron ER) Take 1 Tablet by mouth in the morning. 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 I was in a hospital or clinic location. After connecting through televideo,patient was verified with two unique identifiers. Patient (or authorized legal inbound call center representative) was then informed that this was a Telemedicine visit and being conducted confidentially over secure lines. Methods to assure confidentiality were taken. Patient acknowledged consent and understanding of pr ivacy and security of the Telemedicine visit. The patient agreed to participate. Regla Stiles is a 88 year old female, who presents for f/u of her voiding. Family feels she is fatigued, confused and has malodorous urine. They deny dysuria, SP pain or fever. She remains on topicalestrogens. Past notes and culture results are reviewed. UTI: Presented to Urology Feb 2023. Provided Myrbetriq 25 mg. Using vaginal estrogens. Questionable intolerance of methenamine in the past. Renal US Jan 2023. Cystoscopy February 2023: Sequelae of bladder outlet obstruction. UC&S May 2023: Culture Growth >100,000 colonies/mL Klebsiella oxytoca Abnormal <10,000 colonies/ml mixed normal rachid Resulting Agency: Susceptibility Klebsiella oxytoca MICROBROTH DILUTIONS Ampicillin/Sulbactam Susceptible Cefepime Susceptible Ceftriaxone Susceptible Ciprofloxacin Susceptible 1 Gentamicin Susceptible Nitrofurantoin Susceptible Piperacillin Tazobactam Susceptible Trimeth/Sulfamethoxazole Susceptible Creatinine Results: Lab Results Component Value Date/Time CREATININE - [facility] 1.0 05/26/2023 10:11 AM CREATININE - [facility] 1.0 04/07/2023 06:48 AM CREATININE - [facility] 0.9 03/31/2023 07:10 AM CREATININE - [facility] 1.1 (H) 09/13/2020 12:57 PM CREATININE - [facility] 1.3 (H) 08/09/2020 08:40 AM CREATININE - [facility] 1.2 (H) 08/04/2020 12:02 PM CREATININE, RANDOM URINE - [facility] 45 02/07/2023 04:27 PM CREATININE, RANDOM URINE - [facility] 59 01/18/2022 12:00 PM CREATININE, RANDOM URINE - [facility] 31 05/24/2019 04:18 PM CREATININE, RANDOM URINE - [facility] 95 12/23/2017 03:02 PM CREATININE, RANDOM URINE - [facility] 13 01/16/2017 02:20 PM CREATININE-OUTSIDE LAB 0.86 05/31/2018 12:00 AM CREATININE-OUTSIDE LAB 0.96 08/26/2016 12:00 AM CREATININE-OUTSIDE LAB 0.8 10/12/2015 12:00 AM Current Outpatient Medications Medication Sig Dispense Refill STOOL SOFTENER 100 MG PO TABS 3-4 tabs daily as needed GLUCOSAMINE CHONDR 500 COMPLEX PO CAPS Take by mouth 2 times a day. MAGNESIUM OXIDE 400 MG PO TABS one pill each day Acetaminophen (APAP) 325 MG Tablet Take 1 Tablet by mouth every 6 hours as needed. ENOVIXuch Verio w/Device Kit Use up to 4 times a day E11.9 1 Kit 0 Cyanocobalamin 1000 MCG Oral Tablet (Cyanocobalamin) Take 1 Tablet by mouth in the morning. Nystatin 383613 UNIT/GM External Powder (Nystop) Apply topically to affected area 2 times a day . 60 g 11 BookThatDocTouch Delica Plus Zjyaja96N TEST UP TO FOUR TIMES DAILY, E11.9 400 Each 1 Probiotic Acidophilus BioBeads Oral Capsule Take 1 Capsule by mouth every evening. Just with antibiotics Meclizine HCl 25 MG Oral Tablet (Antivert) Take 1 tablet by mouth 3 times a day as needed for dizziness 30 Tablet 5 Levothyroxine Sodium 88 MCG Oral Tablet (Levoxyl) TAKE ONE TABLET BY MOUTH EVERY MORNING 30 MINS PRIOR TO FIRST MEAL OF THE DAY OR OTHER MEDS 90 Tablet 2 D-Mannose 500 MG Oral Capsule Take by mouth 2 times a day. 2 caps two times daily Vitamin D-3 25 MCG (1000 UT) Oral Capsule Take 1 Capsule by mouth in the morning. Docusate Sodium 50 MG/5ML Oral Liquid (Colace) Place 10 gtts to each ear for 30 min then irrigate. 120 mL 3 Torsemide 20 MG Oral Tablet (Demadex) Take 60 mg by mouth in the morning, 40 mg by mouth in the afternoon. Additional 20 mg in the afternoon ONLY if directed by health care provider for weight gain of 3 lbs or more. 180 Tablet 3 Omeprazole 20 MG Oral Capsule Delayed Release (PriLOSEC) TAKE ONE CAPSULE BY MOUTH EVERY DAY, ONE hour BEFORE THE first meal of THE DAY 90 Capsule 1 Bisacodyl 5 MG Oral Tablet Delayed Release [...] only when directed by clinician. 5 Tablet0 Estrogens Conjugated 0.625 MG/GM Vaginal Cream (Premarin) Administer 0.5 g into the vagina every night at bedtime. Pea-sized amount around vulvar area nightly 30 g 5 Myrbetriq 25 MG Oral Tablet Extended Release 24 Hour (Mirabegron ER) Take 1 Tablet by mouth in the morning. 30 Tablet 1 Benzonatate 100 MG Oral Capsule Take 1 [...] skin once a week. 2 mL 3 No current facility-administered medications for this visit. [...] atrioventricular block I44.0 Coronary artery disease involving [place] coronary artery of georgetown heart without angina pectoris I25.10 ACEI/ARB contraindicated BF2021 Type 2 diabetes mellitus with hemoglobin A1c goal of less than 8.0% ([facility]) E11.9 Non-ischemic cardiomyopathy ([facility]) I42.8 Heart failure, systolic, due to idiopathic cardiomyopathy ([facility]) I50.20, I42.9 Aortic valve stenosis I35.0 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 Type 2 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 disease, without long-term current use of insulin ([facility]) E11.22, N18.31 Lymphedema of both lower extremities I89.0 Benign paroxysmal vertigo of both ears H81.13 Gastroesophageal reflux disease without esophagitis K21.9 Type 2 diabetes mellitus with mild nonproliferative diabetic retinopathy without macular edema, right eye ([facility]) E11.3291 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 coli [...] and (-) chills Eyes: (+) corrective lenses Female : (+) see HPI Musculoskeletal: (+) muscle weakness Neurology: (+) loss of balance Psychiatry: (+) memory loss Physical Exam Constitutional: General: She is not in acute distress. Appearance: She is obese. She is not ill-appearing or toxic-appearing. HENT: Head: Normocephalic. Right Ear: External ear normal. Left Ear: External ear normal. Nose: Nose normal. Mouth/Throat: Mouth: Mucous membranes are moist. Eyes: Extraocular Movements: Extraocular movements intact. Cardiovascular: Pulses: Normal pulses. Pulmonary: Effort: Pulmonary effort is normal. No respiratory distress. Abdominal: General: There is distension. Palpations: Abdomen is soft. Skin: Coloration: Skin is not pale. Neurological: Motor: Weakness present. Gait: Gait abnormal. Psychiatric: Behavior: Behavior normal. Thought Content: Thought content normal. Impression/Plan: 88 yo female with persistent bacteruria. Refill of Myrbetriq provided per patient request for a 90 day supply. Seen the patient's difficulties with recurrent pansensitive Klebsiella in urine will try course of prophylactic Macrobid to minimize bacteriuria. Will see the patient back in 3 months to check on progress. As noted, her symptoms are relatively nonspecific for the possibility of urinary tract infection. Would avoid aggressive use of antibiotics barring other more systemic symptoms to avoid resistance to therapeutic medication in the future. Worrisome signs and symptoms are reviewed, family can contact us with any concerns inthe interim. Above content is personally reviewed. Chandler Pena MD 1:46 PM 07/08/2023 documented in this encounter Plan of Treatment Upcoming Encounters Date Type Department Care Team (Late st Contact Info) Description 07/09/2023 2:00 PM EST Scheduled Telephone [facility], [place] [address] [address] [place] [address] Coordinator, [place] [address] [address] [place] [address] 07/29/2023 8:30 AM EST Home Visit [facility], [facility] [address] [place] [address] Destiny Schultz RN [address] [place] [address] 08/04/2023 1:30 PM EST Home Visit [facility], [facility] [address] [place] [address] Marija Londono RN [address] [place] [address] 08/05/2023 10:00 AM EST Scheduled Telephone [facility], [facility] [address] [place] [address] Coordinator, [facility] [address] [place] [address] 08/08/2023 1:00 PM EST Telemedicine Pharmacy, [address] [place] [address] [place] [address] 10/08/2023 1:30 PM EST Telemedicine Urology, [address] [place] [address] Chandler Pena MD 27 [facility] [address] [place] [address] 10/22/2023 2:00 PM EST Office Visit Cardiology, [address] [place] [address] Mariano Patel MD [address] [place], [place] [phone] 12/03/2023 3:00 PM EDT Office Visit Dermatology [address] [place] [address] Sheryl Pena PA-C [address] [place] [address] [place] [address] 12/08/2023 1:00 PM EDT Office [address], [address] [address] Romel Mcclelland T, DO [address] [place] [id number] 01/06/2024 1:30 PM EDT Cardiac Studies Cardiology [address] [place] [address] Page Pacer [facility] 132 [facility] [place] [address] 03/30/2024 3:40 PM EDT Office Visit Family Medicine [address] [place] [phone] Verónica Jiang MD [address] [place] [address] [place] [address] Health Maintenance Due Date Last Done Comments [...] Additional history exists CKD PHOS USE SMARTSET 58190 02/08/202401/23, 08/07/2021, 11/09/2019, Additional history exists TSH 03/25/2024 03/25/2023, 07/0 10/2022, 10/28/2022, Additional history exists CKD HGB USE SMARTSET 14648 05/26/202405/26, 05/26/2023, 04/07/2023, Additional history exists Pneumococcal [...] Documents on File Type Date Recorded 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
--- OUTSIDE RECORDS SUMMARY | 2023-12-10 00:44 | External Medical Summary | Summary of Care ---
Author Name Unknown Organization [facility] Address [address] [place] [address] Phone [phone] Care Team Providers Care Shrimp Peeler Name Role Phone Verónica Benavides MD Primary Care Provide r Reason for Visit * Reason Onset Date Comments [facility]: Acute 07/09/2023 Encounter Details Date Type Department Care Team ([facility] st Contact Info) Description 07/09/2023 2:00 PM EST Scheduled Telephone [facility], [facility] 132 [facility] [place] [address] Coordinator, [facility] 132 [facility] [place] [address] Allergies Active Allergy Reactions Criticality Noted Date [...] in the morning. 0 08/08/2021 Active Nystatin 807861 UNIT/GM External Powder (Nystop)Indications: Lydia rash of groin Apply topically to affected area 2 times a day . 60 g 11 01/03/2022 Active OneTouch Delica Plus Lkmlii87K TEST UP TO FOUR TIMES DAILY, E11.9 [...] XL)Indications:Non-i schemic cardiomyopathy (HCC),Coronary artery disease involving [facility] coronary artery of [place] heart without angina pectoris,HTN, goal below [...] disease, without long-term current use of insulin ([facility]),Type 2 diabetes mellitus with hemoglobin A1c goal of less than 8.0% ([facility]) TEST UP TO FOUR [...] Continue synthroid Coronary artery disease invo lving [facility] [place] coronary artery of [facility] heart without angina pectoris 07/03/2012 Overview: [...] mRNA, LNP-s, No Pre serve, 2-Dose Series ([facility]) 08/29/2021,10/23/2020,10/02/2020 Covid-19, Mrna, Lnp-s, Pf, B ivalent, 30 Mcg, IM, 12 yrs and above ([facility]) 08/02/2022 Influenza, Whole Virus 08/07/2000 Pneumococcal Conjugate [...] before starting DTP Instructed DTR to call [facility] with weight before initiating any additional medication (pt has both metolazone,potassium,and takes torsemide but no instructions regarding potassium when placed on DTP) DTR will call [facility] tomorrow if weight is still up Care teams please advise...since UTIs never seem to clear and pt is having trouble with urination can bladder scan be done for residual urine? Disposition: Routed to [facility] and/or [facility] Home Care Team for further advice Future Visits Scheduled: Future Appointments-next 60 days Date/Time Provider Specialty Dept Phone 07/29/2023 8:30 AM Destiny Schultz, POPPY [facility] [phone] 08/04/2023 1:30 PM Marija Londono RN [facility] [phone] 08/05/2023 10:00 AM Coordinator Lise Lepe [facility] [phone] 08/08/2023 1:00 PM [facility] [phone] 10/08/2023 1:30 PM Chandler Pena MD Urology [phone] 10/22/2023 2:00 PM (Arrive by 1:45 PM) Mariano Patel MD Cardiology [phone] 12/03/2023 3:00 PM (Arrive by 2:45 PM) Sheryl Pena PA-C Dermatology [phone] 12/08/2023 1:00 PM Romel Mcclelland, Ophthalmology [phone] 01/06/2024 1:30 PM (Arrive by 1:15 PM) [facility] Cardiology [phone] 03/30/2024 3:40 PM (Arrive by 3:25 PM) Verónica Benavides MD Family Medicine [phone] Tali Patel RN documented in this encounter Plan of Treatment Upcoming Encounters Date Type Department Care Team (Late st Contact Info) Description 07/29/2023 8:30 AM EST Home Visit [facility], [facility] [address] [place] [address] Destiny Schultz RN [address] [place] [address] 08/04/2023 1:30 PM EST Home Visit [facility], [facility] [address] [place] [address] Marija Londono RN [address] [place] [address] 08/05/2023 10:00 AM EST Scheduled Telephone [facility], [facility] 132 [facility] [place] [address] Coordinator, [facility] [address] [facility] [place] [address] 08/08/2023 1:00 PM EST Telemedicine Pharmacy, [address] [place] [address] [place] [address] 10/08/2023 1:30 PM EST Telemedicine Urology, [facility] 132 [facility] [place] [address] Chandler Pena MD [address] [place] [address] [place] [address] 10/22/2023 2:00 PM EST Office Visit Cardiology, [address] [place] [address] Mariano Patel MD [address] [place], [place] [phone] 12/03/2023 3:00 PM EDT Office Visit Dermatology [address] [place] [address] Sheryl Pena PA-C [address] [place] [address] [place] [address] 12/08/2023 1:00 PM EDT Office Visit Ophthalmology, [address] [place] [address] Romel Mcclelland T, DO [address] [place] [address] 01/06/2024 1:30 PM EDT Cardiac Studies Cardiology [address] [place] [address] Aleta Abel [facility] 132 [facility] [place] [address] 03/30/2024 3:40 PM EDT Office Visit Family Medicine [address] [place] [phone] Verónica Benavides MD [address] [place] [address] [place] [address] Health Maintenance Due Date Last Done Comments [...] 06/29/2021, Additional history exists HbA1c 08/13/2023 02/11/2023, 03, 01/11/2022, Additional history exists DTaP,Tdap,and Td Vaccines (2 - Td or Tdap) 11/16/2023 11/15/2013, 03/29/2008, 03/29/2008 Diabetic Eye Exam 12/22/2023 12/21/2022, , 02/13/2020, Additional history exists Albumin/Creatinine Ratio 02/08/2024 023, 01/18/2022, 12/23/2017, Additional history exists CKD PHOS USE SMARTSET 14147 02/08/2024 0601/2023, 08/07/2021, 11/09/2019, Additional history exists TSH 03/25/2024 03/25/2023, 07/0 10/2022, 10/28/2022, Additional history exists CKD HGB USE SMARTSET 07635 05/26/202405/26, 05/26/2023, 04/07/2023, Additional history exists Pneumococcal [...] Documents on File Type Date Recorded Patient [id number] Consultant Expl 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 Communication Josselyn Judd Adult Child Health Care Power of Attor nathalie Care Teams Shrimp Peeler Relationship Specialty Start Date End Date Verónica Benavides MD [address] [place] [address] [place] [address] PCP - General Family Medicine 09/16/14 documented as of this encounter
--- OUTSIDE RECORDS SUMMARY | 2023-12-10 00:44 | External Medical Summary | Summary of Care ---
Author Name Unknown Organization [facility] Address [address] [place] [address] Phone [phone] Care Team Providers Care Lace Inspector Name Role Phone Verónica Jiang MD Primary Care Provide r Reason for Visit * Reason Comments eRx-Medication Refill Encounter Details Date Type Department Care Team (Late st Contact Info) Description 07/11/2023 Refill Family Medicine [address] [phone] Verónica Jiang MD [address] [place] [address] Type 2 diabetes mellitus with hemoglobin A1c goal of less than 8.0% ([facility])* Allergies Active Allergy Reactions Criticality [...] in the morning. 0 1 Active Nystatin 216840 UNIT/GM External Powder (Nystop)Indications :Lydia rash of [...] then irrigate. 120 mL 3 3 Active Torsemide 20 MG Oral Tablet (Demadex)Indication s:Heart failure, systolic, due to idiopathic cardiomyopathy (HCC) Take 60 mg by mouth in the morning, 40 mg by mouth in the afternoon. Additional 20 mg in the afternoon ONLY if directed by health care provider for weight gain of 3 lbs or more. 180 Tablet 3 3 Active Omeprazole 20 MG Oral [...] XL)Indications:Non- ischemic cardiomyopathy (HCC),Coronary artery disease involving sitka coronary [...] Tablet 3 3 Active OneTouch Delica Plus Pnttub75EOutcgdflan s:Type 2 diabetes mellitus with hemoglobin A1c goal of less than 8.0% ([facility]) Test up to two times daily or as directed by [facility] pharmacist 200 Each 3 3 Active OneTouch Delica Plus Nxtify13R TEST UP TO FOUR TIMES DAILY, E11.9 400 Each 1 2 07/11/20 23 Discontinued documented as of this encounter [...] carrier 06/29/2021 Last Assessment & Plan: [facility] Triage Call: Reviewed last C&S - treated [...] mRNA, LNP-s, No Pre serve, 2-Dose Series (Private.Me) 08/29/2021,10/23/2020,10/02/2020 Covid-19, Mrna, Lnp-s, Pf, B ivalent, [...] encounter Miscellaneous Notes * Telephone Encounter - Nevin Sherman RPh - 07/11/2023 1:15 PM ESTSigned Prescriptions: Disp Refills OneTouch Delica Plus [id number] 200 Ea*3 Sig: Test up to two times daily or as directed by [facility] pharmacistAuthorizing Provider: VERÓNICA JINAG User: NEVIN SHERMAN * Telephone Encounter - Nevin Sherman RPh - 07/11/2023 1:11 PM EST Per 06/13/23 [facility] telemedicine encounter, "Patient is agreeable to SMBG 1-2 time(s) daily." ThanksNevin PharmD Clinical Pharmacist [facility] ([facility]) (Formerly Telepharmacy) [phone] 07/11/2023 1:14 PM documented in this encounter Plan of Treatment Upcoming Encounters Date Type Department Care Team (Late st Contact Info) Description 07/29/2023 8:30 AM EST Home Visit [facility] [address] [place] [address] Destiny Schultz, POPPY [address] [place] [address] 08/04/2023 1:30 PM EST [facility] Visit [facility], [facility] [address] [place] [address] Marija Londono, RN [address] [place] [address] 08/05/2023 10:00 AM EST Scheduled Telephone [facility], [facility] 132 [facility] ANH [place] [address] Coordinator, [facility] [address] [place] [address] 08/08/2023 1:00 PM EST Telemedicine Pharmacy, [address] [place] [address] [place] [address] 10/08/2023 1:30 PM EST Telemedicine Urology, [facility] 132 [facility] [place] [address] Chandler Pena MD [address] [place] [address] [place] [address] 10/22/2023 2:00 PM EST Office Visit Cardiology, [facility] [address] Mariano Patel MD [address] [place] [address] 12/03/2023 3:00 PM EDT Office Visit Dermatology [address] [place] [address] Sheryl Pena PA-C [address] [place] [address] [place] [address] 12/08/2023 1:00 PM EDT Office Visit Ophthalmology, [facility] [place] [address] Romel Mcclelland, DO [address] [place] [address] 01/06/2024 1:30 PM EDT Cardiac Studies Cardiology [address] [place] [address] [facility] [place] [address] 03/30/2024 3:40 PM EDT Office Visit Family Medicine [address] [place] [phone] Verónica Jiang MD [address] [place] [address] [place] [address] Health Maintenance Due Date Last Done Comments [...] Additional history exists CKD PHOS USE SMARTSET 75678 02/08/2024 06/01/2023, 08/07/2021, 11/09/2019, Additional history exists TSH 03/25/2024 03/25/2023, 07/0 10/2022, 10/28/2022, Additional history exists CKD HGB USE SMARTSET 47070 05/26/202405/26, 05/26/2023, 04/07/2023, Additional history exists Pneumococcal [...] less than 8.0% ([facility])- Primary documented in this encounter Advance Directives Documents on File Type Date Recorded 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
--- OUTSIDE RECORDS SUMMARY | 2023-12-10 00:44 | External Medical Summary | Summary of Care ---
Author Name Unknown Organization [facility] Address [address] [place] [address] Phone [phone] Care Team Providers Care Tow Truck Driver Name Role Phone Verónica Benavides MD Primary Care Provide r Reason for Visit * Reason Onset Date Comments Forms Request 05/20/2023 signature Encounter Details Date Type Department Care Team ([facility] st Contact Info) Description 05/20/2023 Telephone Family Medicine [address] [phone] Verónica Benavides MD [address] [place] [address] Forms Request (signature) Allergies Active Allergy Reactions Criticality Noted Date [...] in the morning. 0 1 Active Nystatin 889150 UNIT/GM External Powder (Nystop)Indication s:Lydia rash of groin Apply topically to affected area 2 times a day . 60 g 11 2 Active OneTouch Delica Plus Rpmeiy57N TEST UP TO FOUR TIMES DAILY, E11.9 400 Each 1 2 Active Probiotic Acidophilus BioBeads Oral Capsule [...] XL)Indications:Non -ischemic cardiomyopathy (HCC),Coronary artery disease involving [place] coronary artery of [place] heart without angina pectoris,HTN, goal below 140/90 [...] area nightly 30 g 5 3 Active Myrbetriq 25 MG Oral Tablet Extended Release 24 Hour (Mirabegron ER) Take 1 Tablet by mouth in the morning. 30 Tablet 1 3 Active Benzonatate 100 MG Oral Capsule [...] for Nausea. 30 Tablet 0 3 Active Promethazine-DM 6.25-15 MG/5ML Oral Syrup Take by mouth 5 mL as needed in the morning AND 5 mL as needed at noon AND 5 mL as needed in the evening AND 5 mL as needed before bedtime for Cough. 120 mL 1 2 023 Discontinued(Re fill) OneTouch Ver In Vitro Strip (Glucose Blood)Indications: Type 2 diabetes mellitus with stage 3 chronic kidney disease, without long-term current use of insulin (HCC),Type 2 diabetes mellitus with hemoglobin A1c goal of less than 8.0% ([facility]) TEST UP TO FOUR TIMES DAILY 400 Strip 1 2 023 Discontinued Colchicine 0.6 MG Oral Tablet Take one twice for gout attack 8 Tablet 0 2 023 Discontinued(Re fill) Potassium Chloride Laura ER 20 MEQ Oral Tablet Extended Release TAKE ONE TABLET BY MOUTH TWICE DAILY 180 Tablet 1 2 023 Discontinued(Re fill) Dulaglutide 0.75 MG/0.5ML Subcutaneous Solution Pen-injector ([employer]) Inject 0.75 mg under the skin once a week. 2 mL 3 3 023 Discontinued Cefdinir 300 MG Oral Capsule (Omnicef) Take 1 Capsule by mouth in the morning and 1 Capsule before bedtime. Do all this for 5 days. 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 We cannot send order for wheel chair to [facility] until the pt has the mobility assessment completed. * Telephone Encounter - Alona Mayer LPN - 05/20/2023 4:38 PM EDT [facility] We have not received any forms from [facility], to be filled out at this time. * Telephone Encounter - Leonarda Arizmendi - 05/20/2023 2:52 PM EDT Regla's daughter was in 05/20/2023 asking about a form that needed signed for a powered wheel chair from [facility] per Ramez Mcfarland. Please call [phone] documented in this encounter Plan of Treatment Upcoming Encounters Date Type Department Care Team (Late st Contact Info) Description 07/08/2023 1:00 PM EST Scheduled Telephone [facility] [place], [facility] [address] [place] [address] [address] Coordinator, [facility] [address] [place] [address] 07/08/2023 1:45 PM EST Telemedicine Urology, [facility] [address] [place] [address] Chandler [facility] [address] [place] [address] 07/09/2023 2:00 PM EST Scheduled Telephone [facility], [facility] 132 [facility] Sam [place] [address] Coordinator, [address] [place] [address] 07/29/2023 8:30 AM EST Home Visit [facility], [facility] [place] [address] Destiny Schultz RN [address] [place] [address] 08/04/2023 1:30 PM EST Home Visit [facility], [facility] [place] [address] Marija Londono RN 132 [facility] [place] [address] 08/05/2023 10:00 AM EST Scheduled Telephone [facility], [facility] 132 [facility] [place] [address] Coordinator, [address] [place] [address] 08/08/2023 1:00 PM EST Telemedicine Pharmacy, [address] [place] [address] [place] [address] 10/22/2023 2:00 PM EST Office Visit Cardiology, [facility] [address] [place] [address] Mariano Patel MD [address] [place] [address] 12/03/2023 3:00 PM EDT Office Visit Dermatology [address] [place] [address] Sheryl Pena PA-C [address] [place] [address] [place] [address] 12/08/2023 1:00 PM EDT Office Visit Ophthalmology, [facility] 132 [place] [address] Romel Mcclelland, [address] [address] 01/06/2024 1:30 PM EDT Cardiac Studies Cardiology [address] [place] [address] [facility] 132 [facility] [place] [address] 03/30/2024 3:40 PM EDT Office Visit Family Medicine [address] [place] [phone] Verónica Benavides MD [address] [place] [address] [place] [address] Health Maintenance Due Date Last Done Comments [...] Additional history exists CKD PHOS USE SMARTSET 45825 02/08/202401/23, 08/07/2021, 11/09/2019, Additional history exists TSH 03/25/2024 03/25/2023, 07/0 10/2022, 10/28/2022, Additional history exists CKD HGB USE SMARTSET 80662 05/26/202405/26, 05/26/2023, 04/07/2023, Additional history exists Pneumococcal [...] Infection Onset Date Last Indicated Resolved Time Respiratory Rule-Out 06/17/2023 06/17/2023 023 2:38 PM EDT Enterovirus (resp)/Rhinovirus 06/17/2023 06/17/2023 07/08/2023 12:18 AM EST documented as of this encounter Advance Directives Documents on File Type Date Recorded 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
--- OUTSIDE RECORDS SUMMARY | 2023-12-10 00:45 | External Medical Summary | Summary of Care ---
Author Name Unknown Organization [facility] Address [address] [place] [address] Phone [phone] Care Team Providers Care Courtroom Reporter Name Role Phone Verónica Benavides MD Primary Care Provide r Reason for Visit * Reason Onset Date Comments [facility]: Acute 07/07/2023 Encounter Details Date Type Department Care Team ([facility] Contact Info) Description 07/07/2023 Telephone [facility], [facility] [address] [place] [address] [facility], Nurse [facility] [address] [place] [address] [facility]: Acute Allergies Active Allergy Reactions Criticality Noted Date Comments Adhesive Tape Medium 01/30/2022 Ibuprofen Hives 01/13/2012 Aspirin Hives,Rash 09/15/2000 Sulfamethoxazole-Trimeth oprim Nausea/vomiting,Othe r (Please comment) 10/27/2020 Dizziness Ciprofloxacin Hcl 06/16/2019 Hoarse, dizzy,disoriented Morphine 09/21/2021 Blacked out Penicillins Hives,Rash 09/15/2000 Prednisone 12/30/2017 Weakness/memory changes/blurred vision documented as of this encounter (statuses as of 07/07/2023) Medications Medication Sig Dispensed Refills Start Date [...] in the morning. 0 08/08/2021 Active Nystatin 105788 UNIT/GM External Powder (Nystop)Indications: Lydia rash of groin Apply topically to affected area 2 times a day . 60 g 11 01/03/2022 Active OneTouch Delica Plus [id number] TEST UP TO FOUR TIMES DAILY, E11.9 [...] XL)Indications:Non-i schemic cardiomyopathy (HCC),Coronary artery disease involving [place] coronary [...] as of this encounter (statuses as of 07/07/2023) Active Problems Problem Noted Date Diagnosed Date [...] carrier 06/29/2021 Last Assessment & Plan: [facility] Triage Call: Reviewed last C&S - [...] as of this encounter (statuses as of 07/07/2023) Resolved Problems Problem Noted Date Diagnosed Date [...] as of this encounter (statuses as of 07/07/2023) Immunizations Name Administration Dates Next Due COVID-19 mRNA, LNP-s, No Pre serve, 2-Dose Series ([employer]) 08/29/2021,10/23/2020,10/02/2020 Covid-19, Mrna, Lnp-s, Pf, B ivalent, 30 Mcg, IM, 12 yrs and above ([employer]) 08/02/2022 Pneumococcal Conjugate Vacc, 13 Valent (Prevnar) [...] Telephone Encounter - Briseyda Rich RN - 07/07/2023 10:26 AM EST [facility] post closer Acute Call Date: 07/07/2023 Time: 10:27 AM Name: Regla Stiles : 1935 Caller: Josselyn Relationship to : daughter HPI: Regla Stiles is a 88 year old female whose daughter / Josselyn is calling [facility] to report her mother has a HX of UTI's and for the past few days her mother has been more confused, has urinary urgency and her urine has a very foul odor. Daughter has urine specimen supplies in the home , will assist in obtaining a urine specimen from her mother and can drop urine specimen at a [facility] today. Requesting a lab order be placed. Daughter also stated her mother has a follow up scheduled with Urology tomorrow. Nursing Assessment: Patient's chief complaint for this call: Urinary symptoms Pain Denies pain Baseline Assessment Able to [...] No COPD exacerbation symptoms: No Reinforcement Education: Continue current medications Stay hydrated Monitor temperature Treatment/Plan: (need to report) Level of call: Non-Acute Recommended treatment plan: Clinical advice given over the phone Urinalysis , reflex to culture ( Not for Neutropenic patients) ordered in [facility] Await [facility] recommendations Follow up phone calls scheduled next 2 days. Briseyda Rich suspension cord tierExtractor And Wringer Operator [facility] documented in this encounter Plan of Treatment Upcoming Encounters Date Type Department Care Team (Late st Contact Info) Description 07/08/2023 1:00 PM EST Scheduled Telephone [facility] [place], [facility] 132 [facility] [place] [address] Coordinator, [facility] 132 [facility] [place] [address] 07/08/2023 1:45 PM EST Telemedicine Urology, [facility] [address] [place] [address] Chandler Pena MD [address] [place] [address] [place] [address] 07/09/2023 2:00 PM EST Scheduled Telephone [facility], [facility] [address] [place] [address] Coordinator, [facility] [address] [place] [address] 07/29/2023 8:30 AM EST Home Visit [facility], [facility] [address] [place] [address] Destiny Schultz RN [address] [place] [address] 08/04/2023 1:30 PM EST Home Visit [facility], [facility] [address] [place] [address] Marija Londono RN [address] [place] [address] 08/05/2023 10:00 AM EST Scheduled Telephone [facility], [facility] [place] [address] Coordinator, [facility] [place] [address] 08/08/2023 1:00 PM EST Telemedicine Pharmacy, [address] [place] [address] [place] [address] 10/22/2023 2:00 PM EST Office Visit Cardiology, [facility] 132 [facility] [place] [address] Mariano Patel MD [address] [place] [address] 12/03/2023 3:00 PM EDT Office Visit Dermatology [address] [place] [address] Sheryl Pena PA-C [address] [place] [address] [place] [address] 12/08/2023 1:00 PM EDT Office Visit Ophthalmology, [facility] 132 [facility] [place] [address] Romel Mcclelland T, DO [address] [place] [address] 01/06/2024 1:30 PM EDT Cardiac Studies Cardiology [address] [place] [address] Aleta Abel [address] [place] [address] 03/30/2024 3:40 PM EDT Office Visit Family Medicine [address] [place] [phone] Verónica Benavides MD [address] [place] [address] [place] [address] Scheduled Orders Name Type Priority Associated Diagnoses Orde r Schedule URINALYSIS, REFLEX TO CULTURE (NOT FOR NEUTROPENIC PATIENTS) Lab Routine Acute cystitis without hematuria Expected: 07/07/2023, Expires: 07/07/2024 Health Maintenance Due Date Last Done Comments [...] Additional history exists CKD PHOS USE SMARTSET 91334 02/08/202401/23, 08/07/2021, 11/09/2019, Additional history exists TSH 03/25/2024 03/25/2023, 07/0 10/2022, 10/28/2022, Additional history exists CKD HGB USE SMARTSET 86406 05/26/202405/26, 05/26/2023, 04/07/2023, Additional history exists Pneumococcal Vaccine: 65+ Years Completed 09/11/2015, 05/25/2008, 06/23/2001 GARDASIL-HPV IMMUNIZATION SERIES Aged Out No longer eligible based on patient's age to complete this topic MENINGOCOCCAL (MENACTRA/MENVEO) Aged Out No longer eligible based on patient's age to complete this topic documented as of this encounter Medical Devices Not on filedocumented as of this encounter Visit Diagnoses Diagnosis Acute cystitis without hematuria- Primary Acute cystitis documented in this encounter Additional Health Concerns Infection Onset Date Last Indicated Resolved Time Enterovirus (resp)/Rhinovirus 06/17/2023 06/17/2023 documented as of this encounter Advance Directives Documents on File Type Date Recorded 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
--- OUTSIDE RECORDS SUMMARY | 2023-12-10 00:45 | External Medical Summary | Summary of Care ---
Author Name Unknown Organization [facility] Address [address] [place] [address] Phone [phone] Care Team Providers Care Petroleum Sampler Name Role Phone Verónica Benavides MD Primary Care Provide r Reason for Visit * Reason Onset Date Comments [facility]: Maintenance 07/08/2023 Encounter Details Date Type Department Care Team ([facility] Contact Info) Description 07/08/2023 1:00 PM EST Scheduled Telephone [facility], [facility] 132 [facility] [place] [address] Coordinator, [facility] 132 [facility] [place] [address] Allergies Active Allergy Reactions Criticality Noted Date [...] in the morning. 0 08/08/2021 Active Nystatin 423294 UNIT/GM External Powder (Nystop)Indications: Lydia rash of groin Apply topically to affected area 2 times a day . 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 Last Assessment & Plan: [facility] Triage Call: Reviewed last C&S - [...] Continue synthroid Coronary artery disease invo lving blue [place] coronary artery of blue lake heart without angina pectoris 07/03/2012 Overview: [...] mRNA, LNP-s, No Pre serve, 2-Dose Series ([employer]) 08/29/2021,10/23/2020,10/02/2020 Covid-19, Mrna, Lnp-s, Pf, B ivalent, 30 Mcg, IM, 12 yrs and above ([employer]) 08/02/2022 Pneumococcal Conjugate Vacc, 13 Valent (Prevnar) [...] [facility] Telephonic Nurse Follow-Up Call [facility] Subprogram: Primary Care at Home Follow [...] an antibiotic is ordered please send to [facility] in [place] Disposition: [place] [facility] [place]or [facility] at [place] Care Team for further advice Future Visits Scheduled: Future Appointments-next 60 days Date/Time Provider Specialty Dept Phone 07/08/2023 1:00 PM Coordinator, Lise Lepe [facility] [phone] 07/08/2023 1:45 PM Chandler Pena MD Urology [phone] 07/09/2023 2:00 PM CoordinatorLenny Ian Lepe [facility] [phone] 07/29/2023 8:30 AM Destiny Schultz RN [facility] [phone] 08/04/2023 1:30 PM Marija Londono RN [facility] [phone] 08/05/2023 10:00 AM Coordinator, Lenny Ian Lepe [employer] [facility] [phone] 08/08/2023 1:00 PM [facility] [phone] 10/22/2023 2:00 PM (Arrive by 1:45 PM) Mariano Patel MD Cardiology [phone] 12/03/2023 3:00 PM (Arrive by 2:45 PM) Sheryl Pena PA-C Dermatology [phone] 12/08/2023 1:00 PM Romel Mcclelland, Ophthalmology [phone] 01/06/2024 1:30 PM (Arrive by 1:15 PM) Aleta Abel [facility] Cardiology [phone] 03/30/2024 3:40 PM (Arrive by 3:25 PM) Verónica Benavides MD Family Medicine [phone] Briseyda Rich RN Mental Health Social Worker [facility] documented in this encounter Plan of Treatment Upcoming Encounters Date Type Department Care Team (Late st Contact Info) Description 07/08/2023 1:45 PM EST Telemedicine Urology, [facility] [address] [place] [address] Chandler Pena MD 27 [facility] [address] [place] [address] 07/09/2023 2:00 PM EST Scheduled Telephone [facility], [facility] [address] [place] [address] Coordinator, [facility] [address] [place] [address] 07/29/2023 8:30 AM EST Home Visit [facility], [facility] [address] [place] [address] Destiny Schultz RN [address] [place] [address] 08/04/2023 1:30 PM EST Home Visit [facility], [facility] [address] [place] [address] Marija Londono RN [address] [place] [address] 08/05/2023 10:00 AM EST Scheduled Telephone [facility], [facility] [address] [place] [address] Coordinator, [facility] [address] [place] [address] 08/08/2023 1:00 PM EST Telemedicine Pharmacy, [address] [place] [address] [place] [address] 10/22/2023 2:00 PM EST Office Visit Cardiology, [facility] 132 [facility] [place] [address] Mariano Patel MD [address] [place], [place] [phone] 12/03/2023 3:00 PM EDT Office Visit Dermatology [address] [place] [address] Sheryl Pena PA-C [address] [place] [address] [place] [address] 12/08/2023 1:00 PM EDT Office Visit Ophthalmology, [facility] 132 [facility] [place] [address] Romel Mcclelland T, [address] [address] 01/06/2024 1:30 PM EDT Cardiac Studies Cardiology [address] [place] [address] Page Pacer [facility] [address] 03/30/2024 3:40 PM EDT Office Visit Family Medicine [address] [place] [phone] Verónica Benavides MD [address] [place] [address] [place] [address] Health Maintenance Due Date Last Done Comments [...] Additional history exists CKD PHOS USE SMARTSET 60541 02/08/202401/23, 08/07/2021, 11/09/2019, Additional history exists TSH 03/25/2024 03/25/2023, 07/0 10/2022, 10/28/2022, Additional history exists CKD HGB USE SMARTSET 43054 05/26/202405/26, 05/26/2023, 04/07/2023, Additional history exists Pneumococcal [...] Documents on File Type Date Recorded 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
--- OUTSIDE RECORDS SUMMARY | 2023-12-10 00:45 | External Medical Summary ---
Author Name Unknown Address Unknown Organization K01:[facility] [place] [address] [facility] [address] Laboratory Report Ordering Provider Test Date Status ALEX NAPIER 07/07/2023 13:07:54 Final <10,000 colonies/ml mixed no rmal rachid Observation Date Value Abnormality Reference (Units ) Status Bacteria identified in Specimen by Culture 07/07/2023 13:07:54 [id number]^KLEBSIELL A PNEUMONIAE Abnormal Final >100,000 colonies/mL Klebsie lla pneumoniae Performing Location [facility] - [address] [facility] [address] Ordering Provider Test Date Status ALEX NAPIER 07/07/2023 13:07:54 Final Observation Date Value Abnormality Reference (Units ) Status Ampicillin + Sulbactam 07/07/2023 13:07:54 <=2 Susceptible Final Cefazolin 07/07/2023 13:07:54 <=4 Susceptible Final Cefepime susceptibility 07/07/2023 13:07:54 <=1 Susceptible Final Ceftriaxone suceptibility 07/07/2023 13:07:54 <=1 Susceptible Final Ciprofloxacin 07/07/2023 13:07:54 <=0.25 Susceptible Final Due to serious side effects, the FDA has advised against using Ciprofloxacin to treat uncomplicated UTIs and respiratory tract infections unless there are no alternative treatment options. Gentamicin susceptibility 07/07/2023 13:07:54 <=1 Susc eptible Final Nitrofurantoin susceptibility 07/07/2023 13:07:54 <=16 Susceptible Final Piperacillin + Tazobactamsusceptibility 07/07/2023 13:07:54 <=4 Susceptible Final TMP-SMZ susceptibility 07/07/2023 13:07:54 <=20 Suscept ible Final Test: Culture, Urine, Quanti tative
Specimen Source: Urine, Clean Catch
Specimen Type: Urine
Specimen Date: 07/07/2023 1:07 PM
Result Date: 07/10/2023 2:27 PM
Result Status: Final result
Abnormal: Yes
Resulting Lab: [facility]
[address]
[facility] [address]

CULTURE

>100,000 colonies/mL Klebsiella pneumoniae (Abnormal)

<10,000 colonies/ml mixed normal rachid

SUSCEPTIBILITY

Klebsiella pneumoniae
METHOD MICROBROTH DILUTIONS

AMPICILLIN/SULBACTAM <=2 Susceptible
CEFAZOLIN <=4 Susceptible
CEFEPIME <=1 Susceptible
CEFTRIAXONE <=1 Susceptible
CIPROFLOXACIN <=0.25 Susceptible [1]
GENTAMICIN <=1 Susceptible
NITROFURANTOIN <=16 Susceptible
PIPERACILLIN TAZOBACTAM <=4 Susceptible
TRIMETH/SULFAMETHOXAZOLE <=20 Susceptible

[1] Due to serious side effects, the FDA has advised against using
Ciprofloxacin to treat uncomplicated UTIs and respiratory tract infections
unless there are no alternative treatment options.

null Performing Location [facility] - [address] [facility] [address]
--- OUTSIDE RECORDS SUMMARY | 2023-12-10 00:45 | External Medical Summary ---
Author Name Unknown Address Unknown Organization K01:[facility] - [address] [address] Laboratory Report Ordering Provider Test Date Status ALEX NAPIER 07/07/2023 13:07:54 Final Observation Date Value Abnormality Reference (Units ) Status Color of Urine by Auto 07/07/2023 13:07:54 Yellow Colorless, Light Yellow, Yellow, Dark Yellow Final Clarity, Urine 07/07/2023 13:07:54 Slightly Cloudy Abnormal Clear Final Glucose [Mass/volume] in Urine by Automated test strip 07/07/2023 13:07:54 Negative Negative (mg/dL) Final Bilirubin.total [Presence] in Urine by Automated test strip 07/07/2023 13:07:54 Negative Negative Final Ketones [Mass/volume] in Urine by Automated test strip 07/07/2023 13:07:54 Negative Negative (mg/dL) Final Specific gravity, Urine 07/07/2023 13:07:54 1.012 1.003-1.030 Final Hemoglobin [Presence] in Urine by Automated test strip 07/07/2023 13:07:54 Trace Abnormal Negative Final pH, Urine 07/07/2023 13:07:54 7.0 5.0-7.5 (Units) Final Protein [Mass/volume] in Urine by Automated test strip 07/07/2023 13:07:54 Trace Abnormal Negative (mg/dL) Final Urobilinogen [Mass/volume] in Urine by Automated test strip 07/07/2023 13:07:54 Normal Normal (mg/dL) Final Nitrite [Presence] in Urine by Automated test strip 07/07/2023 13:07:54 Negative Negative Final Leukocyte esterase [Presence] in Urine by Automated test strip 07/07/2023 13:07:54 Large Abnormal Negative Final RBC, Urine 07/07/2023 13:07:54 0-2 0-2 (/HPF) Final WBC, Urine 07/07/2023 13:07:54 50+ Abnormal 0-2 (/HPF) Final Bacteria [#/area] in Urine sediment by Microscopy high power field 07/07/2023 13:07:54 151-200 Abnormal 0-25 (/HPF) Final Leukocyte clumps [#/area] in Urine sediment by Microscopy high power field 07/07/2023 13:07:54 Present Abnormal None (/HPF) Final CULTURE, URINE - [facility] 07/07/2023 13:07:54 Final Quantitative urine culture t o be performed Performing Location [facility] [place] - [address] [facility] [address]
--- OUTSIDE RECORDS SUMMARY | 2023-12-10 00:45 | External Medical Summary | Summary of Care ---
Author Name Unknown Organization [facility] Address [address] [place] [address] Phone [phone] Care Team Providers Care Graphic Art Technician Name Role Phone Verónica Benavides MD Primary Care Provide r Reason for Visit * Reason Comments Outpatient Testing Encounter Details Date Type Department Care Team (Late st Contact Info) Description 07/07/2023 1:00 PM EST Laboratory Laboratory [address] [place] [phone] , Specimen Drop Off [address] [place] [address] Acute cystitis without hematuria Allergies Active Allergy Reactions Criticality Noted Date [...] in the morning. 0 08/08/2021 Active Nystatin 017497 UNIT/GM External Powder (Nystop)Indications: Lydia rash of groin Apply topically to affected area 2 times a day . 60 g 11 01/03/2022 Active OneTouch Delica Plus [id number] TEST UP TO FOUR TIMES DAILY, E11.9 [...] XL)Indications:Non-i schemic cardiomyopathy (HCC),Coronary artery disease involving hopi coronary artery of hopi heart without angina pectoris,HTN, goal below 140/90 [...] without long-term current use of insulin ([facility]),Type 2 diabetes mellitus with hemoglobin A1c goal of less than 8.0% ([facility]) TEST UP TO FOUR TIMES [...] Continue synthroid Coronary artery disease invo lving hopi coronary artery of hopi heart without angina pectoris 07/03/2012 Overview: 60% [...] mRNA, LNP-s, No Pre serve, 2-Dose Series ([employer]) 08/29/2021,10/23/2020,10/02/2020 Covid-19, Mrna, Lnp-s, Pf, B ivalent, 30 Mcg, IM, 12 yrs and above ([employer]) 08/02/2022 Pneumococcal Conjugate Vacc, 13 Valent (Prevnar) [...] PM EST Scheduled Telephone [facility], [facility] 132 [facility] [place] [address] Coordinator, [facility] [address] [place] [address] 07/08/2023 1:45 PM EST Telemedicine Urology, [facility] [address] [place] [address] Chandler Pena MD 27 [facility] [address] [place] [address] 07/09/2023 2:00 PM EST Scheduled Telephone [facility], [facility] [address] [place] [address] Coordinator, [place] [address] [address] [place] [address] 07/29/2023 8:30 AM EST Home Visit [facility], [place] [address] [address] [place] [address] Destiny Schultz RN [address] [place] [address] 08/04/2023 1:30 PM EST Home Visit [facility], [facility] [address] [place] [address] Marija Londono RN [address] [place] [address] 08/05/2023 10:00 AM EST Scheduled Telephone [facility], [facility] [address] [place] [address] Coordinator, [place] [address] [place] [address] 08/08/2023 1:00 PM EST Telemedicine Pharmacy, [address] [place] [address] [place] [address] 10/22/2023 2:00 PM EST Office Visit Cardiology, [address] [place] [address] Mariano Patel MD [address] [place] [address] 12/03/2023 3:00 PM EDT Office Visit Dermatology [address] [place] [address] Sheryl Pena ARCarlotta [address] [place] [address] [place] [address] 12/08/2023 1:00 PM EDT Office Visit Ophthalmology, [facility] [address] Romel Mcclelland T, DO [address] [place] [phone] 01/06/2024 1:30 PM EDT Cardiac Studies Cardiology [address] [place] [address] Page Pacer [address] [place] [address] 03/30/2024 3:40 PM EDT Office Visit Family Medicine [address] [place] [phone] Verónica Benavides MD [address] [place] [address] [place] [address] Pending Results Name Type Priority Associated Diagnoses Date /Time URINALYSIS, REFLEX TO CULTURE (NOT FOR NEUTROPENIC PATIENTS) Lab Routine Acute cystitis without hematuria 07/07/2023 1:07 PM EST URINALYSIS, REFLEX TO CULTURE (CUP ONLY) Lab Routine Acute cystitis without hematuria 07/07/2023 1:07 PM EST URINALYSIS, REFLEX TO CULTURE Lab Routine Acute cystitis without hematuria 07/07/2023 1:07 PM EST Health Maintenance Due Date Last Done [...] Additional history exists CKD PHOS USE SMARTSET 80050 02/08/2024 06/1 01/2023, 08/07/2021, 11/09/2019, Additional history exists TSH 03/25/2024 03/25/2023, 07/0 10/2022, 10/28/2022, Additional history exists CKD HGB USE SMARTSET 57583 05/26/202405/26, 05/26/2023, 04/07/2023, Additional history exists Pneumococcal [...] encounter Visit Diagnoses Diagnosis Acute cystitis without hematuria Acute cystitis documented in this encounter Additional Health Concerns Infection Onset Date Last Indicated Resolved Time Enterovirus (resp)/Rhinovirus 06/17/2023 06/17/2023 documented as of this encounter Advance Directives Documents on File Type Date Recorded 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
--- OUTSIDE RECORDS SUMMARY | 2023-12-10 00:45 | External Medical Summary | Summary of Care ---
Author Name Unknown Organization [facility] Address [address] [place] [address] Phone [phone] Care Team Providers Care Area Intelligence Technician Name Role Phone Verónica Benavides MD Primary Care Provide r Reason for Visit * Reason Onset Date Comments [facility]: Acute 07/07/2023 Encounter Details Date Type Department Care Team ([facility] Contact Info) Description 07/07/2023 Telephone [facility], [facility] [address] [place] [address] [facility], Nurse [facility] [address] [place] [address] [facility]: Acute Allergies Active Allergy [...] in the morning. 0 08/08/2021 Active Nystatin 444293 UNIT/GM External Powder (Nystop)Indications: Lydia rash of groin Apply topically to affected area 2 times a day . 60 g 11 01/03/2022 Active OneTouch Delica Plus [id number] TEST UP TO FOUR TIMES DAILY, E11.9 [...] XL)Indications:Non-i schemic cardiomyopathy (HCC),Coronary artery disease involving [place] coronary artery of [place] heart without angina pectoris,HTN, goal below 140/90 [...] disease, without long-term current use of insulin ([facility]),Type 2 diabetes mellitus with hemoglobin A1c goal of less than 8.0% ([facility]) TEST UP TO FOUR TIMES [...] Continue synthroid Coronary artery disease invo lving cous[place] coronary artery of [place] heart without angina pectoris 07/03/2012 Overview: 60% [...] mRNA, LNP-s, No Pre serve, 2-Dose Series ([employer]) 08/29/2021,10/23/2020,10/02/2020 Covid-19, Mrna, Lnp-s, Pf, B ivalent, 30 Mcg, IM, 12 yrs and above ([employer]) 08/02/2022 Influenza, Whole Virus 08/07/2000 Pneumococcal Conjugate [...] Telephone Encounter - Mak Chaudhari DO - 07/07/2023 11:11 AM EST [facility] Phone Encounter Reviewed phone message. I agree w/ the advice offered via phone by our intake nursing team. Please let me know via encounter or TT message if there is any change Thank you in advance, I appreciate it. Mak Chaudhari DO [facility] Repairer Hairspring - [facility] 07/07/2023 * Telephone Encounter - Briseyda Rich RN - 07/07/2023 10:26 AM EST [facility] [place] Acute Call Date: 07/07/2023 Time: 10:27 AM Name: Regla Stiles : 1935 Caller: Josselyn Relationship to : daughter HPI: Regla Stiles is a 88 year old female whose daughter / Josselyn is calling [facility] to report her mother has a HX of UTI's and for the past few days her mother has been more confused, has urinary urgency and her urine has a very foul odor. Daughter has urine specimen supplies in the home , will assist in obtaining a urine specimen from her mother and can drop urine specimen at a [facility] today. Requesting a lab order be [...] ( Not for Neutropenic patients) ordered in EPIC [facility]wait [facility] recommendations Follow up phone calls scheduled next 2 days. Briseyda Rich foreign broadcast specialistBingo Checker [facility] documented in this encounter Plan of Treatment Upcoming Encounters Date Type Department Care Team (Late st Contact Info) Description 07/08/2023 1:00 PM EST Scheduled Telephone [facility], [facility] [address] [place] [address] Coordinator, [facility] [address] [place] [address] 07/08/2023 1:45 PM EST Telemedicine Urology, [facility] [address] [place] [address] Chandler Pena MD [address] [place] [address] [place] [address] 07/09/2023 2:00 PM EST Scheduled Telephone [facility], [facility] [address] [place] [address] Coordinator, [facility] [address] [place] [address] 07/29/2023 8:30 AM EST Home Visit [facility], [facility] [address] [place] [address] Destiny Schultz RN [address] [place] [address] 08/04/2023 1:30 PM EST Home Visit [facility], [facility] [address] [place] [address] Marija Londono RN [address] [place] [address] 08/05/2023 10:00 AM EST Scheduled Telephone [facility], [facility] 132 [facility] [place] [address] Coordinator, [facility] [address] [place] [address] 08/08/2023 1:00 PM EST Telemedicine Pharmacy, [address] [place] [address] [place] [address] 10/22/2023 2:00 PM EST Office Visit Cardiology, [address] [place] [address] Mariano Patel MD [address] [place] [address] 12/03/2023 3:00 PM EDT Office Visit Dermatology [address] [place] [address] Sheryl Pena PAAntonio [address] [place] [address] [place] [address] 12/08/2023 1:00 PM EDT Office Visit Ophthalmology, [address] [place] [address] Romel Mcclelland T, DO [address] [place] [address] 01/06/2024 1:30 PM EDT Cardiac Studies Cardiology [address] [place] [address] Aleta Abel [facility] 132 [facility] [place] [address] 03/30/2024 3:40 PM EDT Office Visit Family Medicine [address] [place] [phone] Verónica Benavides MD [address] [place] [address] [place] [address] Scheduled Orders Name Type Priority Associated Diagnoses [...] Additional history exists CKD PHOS USE SMARTSET 78378 02/08/202401/23, 08/07/2021, 11/09/2019, Additional history exists TSH 03/25/2024 03/25/2023, 07/0 10/2022, 10/28/2022, Additional history exists CKD HGB USE SMARTSET 10477 05/26/202405/26, 05/26/2023, 04/07/2023, Additional history exists Pneumococcal [...] Documents on File Type Date Recorded 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
--- OUTSIDE RECORDS SUMMARY | 2023-12-10 00:45 | External Medical Summary | Summary of Care ---
Author Name Unknown Organization [facility] Address [address] [place] [address] Phone [phone] Care Team Providers Care Container Shop Welder Name Role Phone Verónica Benavides MD Primary Care Provide r Reason for Visit * Reason Onset Date Comments [facility]: Maintenance 07/03/2023 Encounter Details Date Type Department Care Team ([facility] st Contact Info) Description 07/03/2023 Telephone [facility], [address] [address] Services, Scheduling [address] [place] [address] [facility]: Maintenance Allergies Active Allergy Reactions Criticality Noted Date Comments Adhesive Tape Medium 01/30/2022 Ibuprofen Hives 01/13/2012 Aspirin Hives,Rash 09/15/2000 Sulfamethoxazole-Trimeth oprim Nausea/vomiting,Othe r (Please comment) 10/27/2020 Dizziness Ciprofloxacin Hcl 06/16/2019 Hoarse, dizzy,disoriented Morphine 09/21/2021 Blacked out Penicillins Hives,Rash 09/15/2000 Prednisone 12/30/2017 Weakness/memory changes/blurred vision documented as of this encounter (statuses as of 07/03/2023) Medications Medication Sig Dispensed Refills Start Date [...] in the morning. 0 08/08/2021 Active Nystatin 137855 UNIT/GM External Powder (Nystop)Indications: Lydia rash of groin Apply topically to affected area 2 times a day . 60 g 11 01/03/2022 Active OneTouch Delica Plus [id number] TEST UP TO FOUR TIMES DAILY, E11.9 [...] XL)Indications:Non-i schemic cardiomyopathy (HCC),Coronary artery disease involving pok[place] coronary artery of pokagon heart without angina pectoris,HTN, goal below 140/90 [...] as of this encounter (statuses as of 07/03/2023) Active Problems Problem Noted Date Diagnosed Date [...] 06/29/2021 Last Assessment & Plan: [facility] Triage Call: Reviewed last C&S [...] Continue synthroid Coronary artery disease invo lving pokagon coronary artery of pokagon heart without angina pectoris 07/03/2012 Overview: 60% [...] as of this encounter (statuses as of 07/03/2023) Resolved Problems Problem Noted Date Diagnosed Date [...] as of this encounter (statuses as of 07/03/2023) Immunizations Name Administration Dates Next Due COVID-19 [...] encounter Miscellaneous Notes * Telephone Encounter - Taylor Bustillo, BETTY - 07/03/2023 2:30 PM EST Daughter is agreeable to scheduled covid booster on 08/04/23 with BETTY Fuller documented in this encounter Plan of Treatment Upcoming Encounters Date Type Department Care Team (Late st Contact Info) Description 07/08/2023 1:45 PM EST Telemedicine Urology, [facility] [address] [place] [address] Chandler Pena MD [address] [facility] [address] [place] [address] 07/29/2023 8:30 AM EST [facility] Visit [facility], [facility] [address] [place] [address] Destiny Schultz, POPPY 132 [facility] [place] [address] 08/04/2023 1:30 PM EST Home Visit [facility], [facility] [address] [place] [address] Marija Londono, RN 132 [facility] [place] [address] 08/05/2023 10:00 AM EST Scheduled Telephone [facility], [facility] [address] [place] [address] Coordinator, [facility] [place] [address] 08/08/2023 1:00 PM EST Telemedicine Pharmacy, [address] [place] [address] [place] [address] 10/22/2023 2:00 PM EST Office Visit Cardiology, [facility] [address] [place] [address] Mariano Patel MD [address] [place], [place] [address] 12/03/2023 3:00 PM EDT Office Visit Dermatology [address] [place] [address] Sheryl Pena PA-C [address] [place] [address] [place] [address] 12/08/2023 1:00 PM EDT Office Visit Ophthalmology, [facility] [address] [place] [address] Romel Mcclelland, [address] [phone] 01/06/2024 1:30 PM EDT Cardiac Studies Cardiology [address] [place] [address] [place], Pacer Clinic [facility] [address] [place] [address] 03/30/2024 3:40 PM EDT Office Visit Family Medicine [address] [place] [phone] Verónica Benavides MD [address] [place] [address] [place] [address] Health Maintenance Due Date Last Done Comments [...] Additional history exists CKD PHOS USE SMARTSET 83424 02/08/202401/23, 08/07/2021, 11/09/2019, Additional history exists TSH 03/25/2024 03/25/2023, 07/0 10/2022, 10/28/2022, Additional history exists CKD HGB USE SMARTSET 76118 05/26/202405/26, 05/26/2023, 04/07/2023, Additional history exists Pneumococcal [...] Documents on File Type Date Recorded 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
--- OUTSIDE RECORDS SUMMARY | 2023-12-10 00:46 | External Medical Summary | Summary of Care ---
Author Name Unknown Organization [facility] Address [address] [place] [address] Phone [phone] Care Team Providers Care Program Manager Slp Name Role Phone Verónica Benavides MD Primary Care Provide r Reason for Visit * Reason Onset Date Comments [facility]: Maintenance 06/25/2023 Encounter Details Date Type Department Care Team ([facility] Contact Info) Description 06/25/2023 10:00 AM EDT Scheduled Telephone [facility], [facility] 132 [facility] [place] [address] Coordinator, [facility] 132 [facility] [place] [address] Allergies Active Allergy Reactions Criticality Noted Date Comments Adhesive Tape Medium 01/30/2022 Ibuprofen Hives 01/13/2012 Aspirin Hives,Rash 09/15/2000 Sulfamethoxazole-Trimeth oprim Nausea/vomiting,Othe r (Please comment) 10/27/2020 Dizziness Ciprofloxacin Hcl 06/16/2019 Hoarse, dizzy,disoriented Morphine 09/21/2021 Blacked out Penicillins Hives,Rash 09/15/2000 Prednisone 12/30/2017 Weakness/memory changes/blurred vision documented as of this encounter (statuses as of 06/25/2023) Medications Medication Sig Dispensed Refills Start Date [...] in the morning. 0 08/08/2021 Active Nystatin 292824 UNIT/GM External Powder (Nystop)Indications: Lydia rash of groin Apply topically to affected area 2 times a day . 60 g 11 01/03/2022 Active OneTouch Delica Plus [id number] TEST UP TO FOUR TIMES DAILY, E11.9 [...] XL)Indications:Non-i schemic cardiomyopathy (HCC),Coronary artery disease involving [place] coronary artery of [place] heart without angina pectoris,HTN, goal below 140/90 Take 1 Tablet by mouth every evening. 90 Tablet 11 02/27/2023 Active Spironolactone 25 MG Oral Tablet (Aldactone)Indicatio ns:Non-ischemic cardiomyopathy (HCC) Take 0.5 Tablets by mouth in the morning. 45 Tablet 3 02/27/2023 Active Dulaglutide 0.75 MG/0.5ML Subcutaneous Solution Pen-injector (Trellie) Inject 0.75 mg under the skin once a week. 2 mL 3 03/07/2023 Active metOLazone 2.5 MG Oral Tablet (Zaroxolyn) [...] for Cough. 120 mL 1 06/16/2023 Active Cefdinir 300 MG Oral Capsule (Omnicef) Take 1 Capsule by mouth in the morning and 1 Capsule before bedtime. Do all this for 7 days. 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] Telephone Encounter - Nanci Leiva RN - 06/25/2023 9:38 AM EDT [facility] Telephonic Nurse Follow-Up Call [facility] Subprogram: Primary Care at Home Follow Up Call Type: Routine follow up call / Status Check Acute issue requiring follow-up call: Complicated UTI Objective: 06/16/2023 3:59 PM 06/05/2023 1:25 PM 06/04/2023 2:59 PM 05/24/2023 10:16 AM 05/07/2023 2:05 PM VITALS ACROSS ENCOUNTERS BP 102/72 118/62 108/58 110/64 Pulse 78 72 62 72 Weight 108.9 kg BMI 45.35 kg/m2 Lab Results Component Value Date BLOOD, URINE - [facility] Negative 06/17/2023 PROTEIN, URINE - [facility] Trace (A) 06/17/2023 ESTERASE, URINE - [facility] Large (A) 06/17/2023 WBC AUTO - [facility] 7.42 05/26/2023 WBC CLUMPS, URINE -[facility] Present (A) 06/02/2023 WBC, URINE - [facility] 50+ (A) 06/17/2023 NITRITE, URINE - [facility] Negative 06/17/2023 QUANT URINE CULTURE GROWTH >100,000 colonies/mL Klebsiella [...] "LEFT VENTRICULAR EJECTION FRACTION" Remote Patient Monitoring: AMC Scale: na Oxygen Needs: NO supplemental oxygen needs identified , uses prn only DME Needs: NO DME needs identified Medications: New medication(s) added: Cefdinir BID x 7 days, started 06/19 Subjective: Condition Status: Improvement in symptoms but not at baseline Current Concerns: Spoke with daughter Anne. Patient doing ok, non productive cough, no fever, no congestion. Urine is clearing up. She is not complaining about any symptoms. Eating/drinking well. Antbx should be done tomorrow or 1 more dose Fri morning. Disposition: Issue resolved. All appropriate follow up scheduled. Future Visits Scheduled: Future Appointments-next 60 days Date/Time Provider Specialty Dept Phone 06/25/2023 10:00 AM Coordinator, Lise Lepe [facility] [phone] 06/26/2023 5:30 PM Destiny Schultz RN [facility] [phone] 07/08/2023 1:45 PM Chandler Pena MD Urology [phone] 08/08/2023 1:00 PM [facility] [phone] 08/20/2023 1:30 PM (Arrive by 1:15 PM) Mariano Patel MD Cardiology [phone] 12/03/2023 3:00 PM (Arrive by 2:45 PM) Sheryl Pena PA-C Dermatology [phone] 12/08/2023 1:00 PM Romel Mcclelland, Ophthalmology [phone] 01/06/2024 1:30 PM (Arrive by 1:15 PM) Aleta Abel [facility] Cardiology [phone] 03/30/2024 3:40 PM (Arrive by 3:25 PM) Verónica Benavides MD Family Medicine [phone] Nanci Leiva, RN documented in this encounter Plan of Treatment Upcoming Encounters Date Type Department Care Team (Late st Contact Info) Description 06/26/2023 5:30 PM EDT Home Visit [facility] [place], [address] [place] [address] Destiny Schultz RN 132 [facility] [place] [address] 07/08/2023 1:45 PM EST Telemedicine Urology, [facility] 132 [facility] [place] [address] Chandler Pena MD [address] [address] [place] [address] 08/08/2023 1:00 PM EST Telemedicine Pharmacy, [address] [place] [address] [place] [address] 08/20/2023 1:30 PM EST Office Visit Cardiology, [address] [place] [address] Mariano Patel MD [address] [place] [address] 12/03/2023 3:00 PM EDT Office Visit Dermatology [address] [place] [address] Sheryl Pena PA-C [address] [place] [address] [place] [address] 12/08/2023 1:00 PM EDT Office Visit Ophthalmology, [facility] 132 [facility] [place] [address] Romel Mcclelland T, DO [address] [place] [address] 01/06/2024 1:30 PM EDT Cardiac Studies Cardiology [address] [place] [address] Aleta Abel [facility] 132 [place] [address] 03/30/2024 3:40 PM EDT Office Visit Family Medicine [address] [place] [phone] Verónica Benavides MD [address] [place] [address] [place] [address] Health Maintenance Due Date Last Done Comments [...] Additional history exists CKD PHOS USE SMARTSET 26813 02/08/202401/23, 08/07/2021, 11/09/2019, Additional history exists TSH 03/25/2024 03/25/2023, 07/0 10/2022, 10/28/2022, Additional history exists CKD HGB USE SMARTSET 99706 05/26/202405/26, 05/26/2023, 04/07/2023, Additional history exists Pneumococcal [...] Documents on File Type Date Recorded 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
--- OUTSIDE RECORDS SUMMARY | 2023-12-10 00:46 | External Medical Summary | Summary of Care ---
Author Name Unknown Organization [facility] Address [address] [place] [address] Phone [phone] Care Team Providers Care Hall Manager Name Role Phone Verónica Jiang MD Primary Care Provide r Reason for Visit * Reason Comments eRx-Medication Refill Encounter Details Date Type Department Care Team (Late st Contact Info) Description 06/27/2023 Refill Pharmacy, [address] [place] [address] Verónica Jiang MD [address] [place] [address] [place] [phone] Allergies Active Allergy Reactions Criticality Noted Date Comments Adhesive Tape Medium 01/30/2022 Ibuprofen Hives 01/13/2012 Aspirin Hives,Rash 09/15/2000 Sulfamethoxazole-Trimeth oprim Nausea/vomiting,Othe r (Please comment) 10/27/2020 Dizziness Ciprofloxacin Hcl 06/16/2019 Hoarse, dizzy,disoriented Morphine 09/21/2021 Blacked out Penicillins Hives,Rash 09/15/2000 Prednisone 12/30/2017 Weakness/memory changes/blurred vision documented as of this encounter (statuses as of 06/27/2023) Medications Medication Sig Dispensed Refills Start Date [...] in the morning. 0 1 Active Nystatin 521269 UNIT/GM External Powder (Nystop)Indications :Lydia rash of groin Apply topically to affected area 2 times a day . 60 g 11 2 Active OneTouch Delica Plus Sxzwxh87M TEST UP TO FOUR TIMES DAILY, E11.9 [...] XL)Indications:Non- ischemic cardiomyopathy (HCC),Coronary artery disease involving nikolski coronary artery of nikolski heart without angina pectoris,HTN, goal below 140/90 [...] a week. 2 mL 3 3 Active Dulaglutide 0.75 MG/0.5ML Subcutaneous Solution Pen-injector (Trulicity) Inject 0.75 mg under the skin once a week. 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 Last Assessment & Plan: [facility] Triage Call: Reviewed last C&S - treated [...] Continue synthroid Coronary artery disease invo lving nikolski coronary artery of nikolski heart without angina pectoris 07/03/2012 Overview: 60% [...] as of this encounter (statuses as of 06/27/2023) Resolved Problems Problem Noted Date Diagnosed Date [...] as of this encounter (statuses as of 06/27/2023) Immunizations Name Administration Dates Next Due COVID-19 mRNA, LNP-s, No Pre serve, 2-Dose Series (Medic Trace) 08/29/2021,10/23/2020,10/02/2020 Covid-19, Mrna, Lnp-s, Pf, B ivalent, 30 Mcg, IM, 12 yrs and above (Medic Trace) 08/02/2022 Pneumococcal Conjugate Vacc, 13 Valent (Prevnar) [...] encounter Miscellaneous Notes * Telephone Encounter - Lemuel Ahmadi [facility] - 06/27/2023 10:05 AM EDT Signed Prescriptions: Disp Refills Trulicity 0.75 MG/0.5ML Subcutaneous Solut*2 mL 3 Sig: Inject 0.75 mg under the skin once a week.Authorizing Provider: VERÓNICA JIANG User: LEMUEL AHMADI documented in this encounter Plan of Treatment Upcoming Encounters Date Type Department Care Team (Late st Contact Info) Description 07/08/2023 1:45 PM EST Telemedicine Urology, [facility] 132 [facility] [place] [address] Chandler Pena MD [address] [address] [place] [address] 07/29/2023 8:30 AM EST Home Visit [facility] 132 [facility] [place] [address] Destiny Schultz RN 132 [facility] [place] [address] 08/08/2023 1:00 PM EST Telemedicine Pharmacy, [address] [place] [address] [place] [address] 10/22/2023 2:00 PM EST Office Visit Cardiology, [facility] 132 [facility] [place] [address] Mariano Patel MD [address] [place] [address] 12/03/2023 3:00 PM EDT Office Visit Dermatology [address] [place] [address] Sheryl Pena PA-C [address] [place] [address] [place] [address] 12/08/2023 1:00 PM EDT Office Visit Ophthalmology, [facility] [place] [address] Romel Mcclelland, [address] [address] 01/06/2024 1:30 PM EDT Cardiac Studies Cardiology [address] [place] [address] [place], Pacer Clinic [facility] 132 [facility] [place] [address] 03/30/2024 3:40 PM EDT Office Visit Family Medicine [address] [place] [phone] Verónica Jiang MD [address] [place] [address] [place] [address] Health Maintenance Due Date Last Done Comments Zoster Vaccines (1 of 2) 1985 Hepatitis B (1 of 3 - Risk 3-dose series) 1995 DXA Scan 04/02/2020 04/02/2017, 12/24, 11/05/2007 Depression Screening 05/24/2020 05/24/2019 Diabetic Foot Exam 11/08/2020 11/09/2019, 0 09/01/2018, 08/28/2017, Additional history exists COVID-19 Vaccine (2022- season) 2023 08/02/2022, 08/02/2022, 08/29/2021, Additional history exists Influenza Vaccine (FLU shot) (#1) 2023 06/20/2022, 06/20/2022, 06/29/2021, Additional history exists HbA1c 08/13/2023 02/11/2023, 10/23, 01/11/2022, Additional history exists DTaP,Tdap,and Td Vaccines (2 - Td or Tdap) 11/16/2023 11/15/2013, 03/29/2008, 03/29/2008 Diabetic Eye Exam 12/22/2023 12/21/2022, , 02/13/2020, Additional history exists Albumin/Creatinine Ratio 02/08/2024 023, 01/18/2022, 12/23/2017, Additional history exists CKD PHOS USE SMARTSET 61318 02/08/202401/23, 08/07/2021, 11/09/2019, Additional history exists TSH 03/25/2024 03/25/2023, 07/0 10/2022, 10/28/2022, Additional history exists CKD HGB USE SMARTSET 24961 05/26/202405/26, 05/26/2023, 04/07/2023, Additional history exists Pneumococcal [...] Documents on File Type Date Recorded 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 Communication Josselyn Judd Adult Child Health Care Power of Attor nathalie Care Teams Hall Manager Relationship Specialty Start Date End Date Verónica Jiang MD [address] [place] [address] [place] [phone] PCP - General Family Medicine 09/16/14 documented as of this encounter
--- OUTSIDE RECORDS SUMMARY | 2023-12-10 00:46 | External Medical Summary | Summary of Care ---
Author Name Unknown Organization [facility] Address [address] [place] [address] Phone [phone] Care Team Providers Care Manager Business Name Role Phone Verónica Benavides MD Primary Care Provide r Reason for Visit * Reason Comments [facility]: Maintenance Encounter Details Date Type Department Care Team ([facility] st Contact Info) Description 06/26/2023 5:30 PM EDT Home Visit [facility], [facility] [address] [facility] [place] [address] Destiny Schultz, RN [address] [place] [address] Allergies Active Allergy Reactions Criticality Noted Date [...] in the morning. 0 08/08/2021 Active Nystatin 285758 UNIT/GM External Powder (Nystop)Indications: Lydia rash of groin Apply topically to affected area 2 times a day . 60 g 11 01/03/2022 Active OneTouch Delica Plus [id number] TEST UP TO FOUR TIMES DAILY, E11.9 [...] XL)Indications:Non-i schemic cardiomyopathy (HCC),Coronary artery disease involving [place] coronary artery of [place] heart without angina pectoris,HTN, goal below 140/90 [...] long-term current use of insulin ([facility]),Type 2 diabetes mellitus with hemoglobin A1c goal of less than 8.0% ([facility]) TEST UP TO FOUR TIMES DAILY [...] for Cough. 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 Last Assessment & Plan: [facility] Triage Call: Reviewed last C&S - [...] Continue synthroid Coronary artery disease invo lving [place] coronary artery of [place] heart without angina pectoris 07/03/2012 Overview: 60% [...] mRNA, LNP-s, No Pre serve, 2-Dose Series ([employer]) 08/29/2021,10/23/2020,10/02/2020 Covid-19, Mrna, Lnp-s, Pf, B ivalent, 30 Mcg, IM, 12 yrs and above ([employer]) 08/02/2022 Pneumococcal Conjugate Vacc, 13 Valent (Prevnar) [...] Sign Reading Time Taken Comments Blood Pressure 122/76 06/26/2023 3:50 PM EDT Pulse 60 06/26/2023 3:50 PM EDT Temperature 36.6 C (97.8 F) 06/26/2023 3:50 PM ED T Respiratory Rate 18 06/26/2023 3:50 PM EDT Oxygen Saturation 92% 06/26/2023 3:50 PM EDT Inhaled Oxygen Concentration - - Weight - - Height - - Body Mass Index - - documented in this encounter Progress Notes * Destiny Schultz RN - 06/26/2023 3:34 PM EDT [facility] Director Decision Support Visit Date: 06/26/2023 Time: 3:34 PM Name: Regla Stiles : 1935 Current Concerns: Patient seen for follow up- h/o falls/ UTI, CHF, CKD, DM2 Continues with Cefdinir- UTI Weight 238.6- up from Friday- Edema increased to BLE daughter to give extra torsemide x 3 days Blood sugar- 128 VS wnl Lungs clear bilaterally Sob with exertion Chronic BLE lymphedema Voiding without difficulty Bowels wnl- per report Appetite good Taking fluids- 4 bottles daily Problems/Symptoms: Review of Systems Constitutional: Negative. HENT: Negative. Eyes: Negative. Respiratory: Positive for cough and shortness of breath. Cardiovascular: Positive for leg swelling. Gastrointestinal: Negative. Endocrine: Negative. Genitourinary: Negative. Musculoskeletal: Positive for gait problem. Skin: Negative. Allergic/Immunologic: Negative. Hematological: Negative. Psychiatric/Behavioral: Negative. Physical Exam: BP 122/76 (BP Site: Left Arm, BP Position: Sitting, BP Cuff Size: Regular) | Pulse 60 | Temp 36.6 C (97.8 F) (Tympanic) | Resp 18 | SpO2 92% Pain 0 Physical Exam Constitutional: Appearance: Normal appearance. She is obese. Cardiovascular: Rate and Rhythm: [...] and Affect: Mood normal. Behavior: Behavior normal. [facility]-10 Completed this Visit: No. Routine visit Treatment/Plan: DTP- extra Torsemide in evening x 3 days. Daughter will call if ineffective Compression pumps every day- alternating legs Elevate ble- recliner Low na diet Continue medications as prescribed Keep all upcoming MD appointments Fall precautions- walker/w/c 24 hour caregivers Blood sugars daily Weights daily RN CM follow up in 4 weeks. Home Interventions Provided: Oral Medications: Diuretic Titration Protocol Started Patient Needs to Remember: Call [facility] with any medical concerns/ red flags Referrals Needed: N/a Follow Up: Is there cellular connectivity/connectivity in the home? Yes Does the patient have internet in the home? No Patient encouraged to call the intake phone number for all urgent but not emergent issues. Scheduled to follow up with patient in 4 weeks. Destiny Byers RN 06/26/2023 3:34 PM documented in this encounter Plan of Treatment Upcoming Encounters Date Type Department Care Team (Late st Contact Info) Description 07/08/2023 1:45 PM EST Telemedicine Urology, [facility] 132 [facility] [place] [address] Chandler Pena MD [address] [address] [place] [address] 07/29/2023 8:30 AM EST Home Visit [facility] 132 [facility] [place] [address] Destiny Schultz, POPPY 132 [facility] [place] [address] 08/08/2023 1:00 PM EST Telemedicine Pharmacy, [address] [place] [address] [place] [address] 10/22/2023 2:00 PM EST Office Visit Cardiology, [facility] 132 [place] [address] Mariano Patel MD [address] [place], [place] [id number] 12/03/2023 3:00 PM EDT Office Visit Dermatology [address] [place] [address] Sheryl Pena PA-C [address] [place] [address] [place] [address] 12/08/2023 1:00 PM EDT Office Visit Ophthalmology, [facility] 132 [facility] [place] [address] Romel Mcclelland, [address] [id number] 01/06/2024 1:30 PM EDT Cardiac Studies Cardiology [address] [place] [address] [place] 132 [facility] [place] [address] 03/30/2024 3:40 PM EDT Office Visit Family Medicine [address] [place] [phone] Verónica Benavides MD [address] [place] [address] [place] [address] Health Maintenance Due Date Last Done Comments [...] Additional history exists CKD PHOS USE SMARTSET 22412 02/08/202401/23, 08/07/2021, 11/09/2019, Additional history exists TSH 03/25/2024 03/25/2023, 07/0 10/2022, 10/28/2022, Additional history exists CKD HGB USE SMARTSET 26280 05/26/202405/26, 05/26/2023, 04/07/2023, Additional history exists Pneumococcal [...] Documents on File Type Date Recorded 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
--- OUTSIDE RECORDS SUMMARY | 2023-12-10 00:46 | External Medical Summary | Summary of Care ---
Author Name Unknown Organization [facility] Address [address] [place] [address] Phone [phone] Care Team Providers Care Machine Lead Burner Name Role Phone Verónica Benavides MD Primary Care Provide r Reason for Visit * Reason Onset Date Comments Appointment 06/23/2023 Encounter Details Date Type Department Care Team (Late st Contact Info) Description 06/23/2023 Telephone Urology Jhon Zayas [address] [place] [address] [place] [address] Services, Scheduling [address] [place] [address] Appointment Allergies Active Allergy Reactions Criticality Noted Date Comments Adhesive Tape Medium 01/30/2022 Ibuprofen Hives 01/13/2012 Aspirin Hives,Rash 09/15/2000 Sulfamethoxazole-Trimeth oprim Nausea/vomiting,Othe r (Please comment) 10/27/2020 Dizziness Ciprofloxacin Hcl 06/16/2019 Hoarse, dizzy,disoriented Morphine 09/21/2021 Blacked out Penicillins Hives,Rash 09/15/2000 Prednisone 12/30/2017 Weakness/memory changes/blurred vision documented as of this encounter (statuses as of 06/24/2023) Medications Medication Sig Dispensed Refills Start Date [...] in the morning. 0 08/08/2021 Active Nystatin [id number] UNIT/GM External Powder (Nystop)Indications: Lydia rash of groin Apply topically to affected area 2 times a day . 60 g 11 01/03/2022 Active OneTouch Delica Plus [id number] TEST UP TO FOUR TIMES DAILY, E11.9 [...] XL)Indications:Non-i schemic cardiomyopathy (HCC),Coronary artery disease involving [place] coronary artery of [place] heart without angina pectoris,HTN, goal below 140/90 Take 1 Tablet by mouth every evening. 90 Tablet 11 02/27/2023 Active Spironolactone 25 MG Oral Tablet (Aldactone)Indicatio ns:Non-ischemic cardiomyopathy (HCC) Take 0.5 Tablets by mouth in the morning. 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 Last Assessment & Plan: [facility] Triage Call: Reviewed last C&S - [...] Continue synthroid Coronary artery disease invo lving [place] coronary artery of [place] heart without angina pectoris 07/03/2012 Overview: 60% [...] as of this encounter (statuses as of 06/24/2023) Resolved Problems Problem Noted Date Diagnosed Date [...] as of this encounter (statuses as of 06/24/2023) Immunizations Name Administration Dates Next Due COVID-19 mRNA, LNP-s, No Pre serve, 2-Dose Series ([employer]) 08/29/2021,10/23/2020,10/02/2020 Covid-19, Mrna, Lnp-s, Pf, B ivalent, 30 Mcg, IM, 12 yrs and above ([employer]) 08/02/2022 Pneumococcal Conjugate Vacc, 13 Valent (Prevnar) [...] encounter Miscellaneous Notes * Telephone Encounter - Declan Saucedo, BETTY - 06/24/2023 8:31 AM EDT Appt changed to video visit and daughter was made aware * Telephone Encounter - Paris Santos LPN - 06/23/2023 4:24 PM EDT Scott: Please change upcoming appt to home telemed, and inform daughter. Thank you Sabra * Telephone Encounter - Chandler Pena MD - 06/23/2023 4:14 PM EDT TeleMed visit okay. Thanks, * Telephone Encounter - Yarely Mccrary LPN - 06/23/2023 2:40 PM EDT Please advise if your okay with TeleMed visit on 07/08/23 * Telephone Encounter - Daniella Lemus OSA - 06/23/2023 12:05 PM EDT Patients daughter Josselyn calling to ask if appt on 07/08/[address] Pena can be a Tele-Med visit as patient has great difficulty getting out. documented in this encounter Plan of Treatment Upcoming Encounters Date Type Department Care Team (Late st Contact Info) Description 06/25/2023 10:00 AM EDT Scheduled Telephone [facility], [facility] 132 [facility] [place] [address] Coordinator, [facility] 132 [facility] [place] [address] 06/26/2023 5:30 PM EDT Home Visit [facility], [facility] 132 [facility] [place] [address] Destiny Schultz RN 132 [facility] [place] [address] 07/08/2023 1:45 PM EST Telemedicine Urology, [facility] 132 [place] [address] Chandler Pena MD [address] [address] [place] [address] 08/08/2023 1:00 PM EST Telemedicine Pharmacy, [address] [place] [address] [place] [address] 08/20/2023 1:30 PM EST Office Visit Cardiology, [address] [place] [address] Mariano Patel MD [address] [place] [address] 12/03/2023 3:00 PM EDT Office Visit Dermatology [address] [place] [address] Sheryl Pena PA-C [address] [place] [address] [place] [address] 12/08/2023 1:00 PM EDT Office Visit Ophthalmology, [facility] 132 [facility] [place] [address] Romel Mcclelland T, DO [address] [place] [id number] 01/06/2024 1:30 PM EDT Cardiac Studies Cardiology [address] [place] [address] Aleta Abel [facility] 132 [facility] [place] [address] 03/30/2024 3:40 PM EDT Office Visit Family Medicine [address] [place] [phone] Verónica Benavides MD [address] [place] [address] [place] [address] Health Maintenance Due Date Last Done Comments [...] Additional history exists CKD PHOS USE SMARTSET 53546 02/08/20241 01/2023, 08/07/2021, 11/09/2019, Additional history exists TSH 03/25/2024 03/25/2023, 07/0 10/2022, 10/28/2022, Additional history exists CKD HGB USE SMARTSET 85160 05/26/202405/26, 05/26/2023, 04/07/2023, Additional history exists Pneumococcal [...] Documents on File Type Date Recorded Patient Supervisor Unloading Expl anation Advance Directives and Living Will 08/10/2021 ADVANCE DIRECTIVE / LIVING WILL LIVING WILL Healthcare Agents on File Name Relationship [facility] Adult Child Health Care Power of Attor nathalie Care Teams Machine Lead Burner Relationship Specialty Start Date End Date Verónica Benavides MD [address] [place] [address] [place] [address] PCP - General Family Medicine 09/16/14 documented as of this encounter
--- OUTSIDE RECORDS SUMMARY | 2023-12-10 00:47 | External Medical Summary | Summary of Care ---
Author Name Unknown Organization [facility] Address [address] [place] [address] Phone [phone] Care Team Providers Care Searchlight Operator Name Role Phone Verónica Benavides MD Primary Care Provide r Reason for Visit * Reason Onset Date Comments [facility]: Maintenance 06/19/2023 Encounter Details Date Type Department [facility] Description 06/19/2023 Telephone [facility], [facility] [address] [place] [address] [facility], Nurse [facility] [address] [place] [address] [facility]: Maintenance Allergies Active Allergy Reactions Criticality Noted Date Comments Adhesive Tape Medium 01/30/2022 Ibuprofen Hives 01/13/2012 Aspirin Hives,Rash 09/15/2000 Sulfamethoxazole-Trimeth oprim Nausea/vomiting,Othe r (Please comment) 10/27/2020 Dizziness Ciprofloxacin Hcl 06/16/2019 Hoarse, dizzy,disoriented Morphine 09/21/2021 Blacked out Penicillins Hives,Rash 09/15/2000 Prednisone 12/30/2017 Weakness/memory changes/blurred vision documented as of this encounter (statuses as of 06/19/2023) Medications Medication Sig Dispensed Refills Start Date [...] in the morning. 0 08/08/2021 Active Nystatin 518782 UNIT/GM External Powder (Nystop)Indications: Lydia rash of groin Apply topically to affected area 2 times a day . 60 g 11 01/03/2022 Active OneTouch Delica Plus [id number] TEST UP TO FOUR TIMES DAILY, E11.9 [...] schemic cardiomyopathy (HCC),Coronary artery disease involving [place] coronary artery of [place] heart without angina pectoris,HTN, goal below 140/90 Take 1 Tablet by mouth every evening. 90 Tablet 11 02/27/2023 Active Spironolactone 25 MG Oral Tablet (Aldactone)Indicatio ns:Non-ischemic cardiomyopathy (HCC) Take 0.5 Tablets by mouth in the morning. 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 Last Assessment & Plan: [facility] Triage Call: Reviewed last C&S [...] synthroid Coronary artery disease invo lving [place] coronary artery of [place] heart without angina pectoris 07/03/2012 [...] as of this encounter (statuses as of 06/19/2023) Resolved Problems Problem Noted Date Diagnosed Date [...] as of this encounter (statuses as of 06/19/2023) Immunizations Name Administration Dates Next Due COVID-19 mRNA, LNP-s, No Pre serve, 2-Dose Series ([employer]) 08/29/2021,10/23/2020,10/02/2020 Covid-19, Mrna, Lnp-s, Pf, B ivalent, [...] Telephone Encounter - Tali Patel RN - 06/19/2023 4:16 PM EDT Patint DTR josselyn aware of new RX cefdinir sent to pharmacy for UTI PC placed at end of ABX cycle DTR aware to call [facility] with any worsening s/s Tali Patel RN, BSN [facility] occ therapy asstWellness Ambassador documented in this encounter Plan of Treatment Upcoming Encounters Date Type Department Care Team (Late st Contact Info) Description 06/20/2023 11:45 AM EDT Scheduled Telephone [facility], [address] [place] [address] [address] [place] [address] Coordinator, [facility] [place] [address] 06/25/2023 10:00 AM EDT Scheduled Telephone [facility], [facility] [address] [place] [address] Coordinator, [facility] 132 [facility] [place] [address] 06/26/2023 5:30 PM EDT Home Visit [facility], [facility] [address] [place] [address] Destiny Schultz, POPPY 132 [facility] [place] [address] 07/07/2023 8:00 AM EST Office Visit Ophthalmology, [facility] [address] [place] [address] Romel Mcclelland T, [address] [place] [address] 07/08/2023 1:45 PM EST Office Visit Urology, [facility] 132 [facility] [place] [address] Chandler Pena MD 27 [facility] 270 [place] [address] 08/08/2023 1:00 PM EST Telemedicine Pharmacy, [address] [place] [address] [place] [address] 08/20/2023 1:30 PM EST Office Visit Cardiology, [facility] 132 [facility] [place] [address] Mariano Patel MD [address] [place] [address] 12/03/2023 3:00 PM EDT Office Visit Dermatology [address] [place] [address] Sheryl Pena PA-C [address] [place] [address] [place] [address] 12/16/2023 2:00 PM EDT Cardiac Studies Cardiology [address] [place] [address] Aleta Abel [facility] 132 [facility] [place] [address] 03/30/2024 3:40 PM EDT Office Visit Family Medicine [address] [place] [phone] Verónica Benavides MD [address] [place] [address] [place] [address] Health Maintenance Due Date Last Done Comments [...] Td or Tdap) 11/16/2023 11/15/2013, 03/29/2008, 03/29/2008 DIABETES-EYE EXAM 12/22/2023 12/21/2022, , 02/13/2020, Additional history exists Albumin/Creatinine Ratio 02/08/2024 023, 01/18/2022, 12/23/2017, Additional history exists CKD PHOS USE SMARTSET 65191 02/08/202401/23, 08/07/2021, 11/09/2019, Additional history exists TSH 03/25/2024 03/25/2023, 07/0 10/2022, 10/28/2022, Additional history exists CKD HGB USE SMARTSET 90520 05/26/202405/26, 05/26/2023, 04/07/2023, Additional history exists Pneumococcal [...] Documents on File Type Date Recorded 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
--- OUTSIDE RECORDS SUMMARY | 2023-12-10 00:47 | External Medical Summary | Summary of Care ---
Author Name Unknown Organization [facility] Address [address] [place] [address] Phone [phone] Care Team Providers Care Assembler Leather Goods Name Role Phone Verónica Benavides MD Primary Care Provide r Encounter Details Date Type Department Care Team (Late st Contact Info) Description 03/22/2023 Result Scan Unspecified Department <No scans attached> Allergies Active Allergy Reactions Criticality Noted Date Comments Adhesive Tape Medium 01/30/2022 Ibuprofen Hives 01/13/2012 Aspirin Hives,Rash 09/15/2000 Sulfamethoxazole-Trimeth oprim Nausea/vomiting,Othe r (Please comment) 10/27/2020 Dizziness Ciprofloxacin Hcl 06/16/2019 Hoarse, dizzy,disoriented Morphine 09/21/2021 Blacked out Penicillins Hives,Rash 09/15/2000 Prednisone 12/30/2017 Weakness/memory changes/blurred vision documented as of this encounter (statuses as of 06/23/2023) Medications Medication Sig Dispensed Refills Start Date [...] in the morning. 0 08/08/2021 Active Nystatin 429827 UNIT/GM External Powder (Nystop)Indications: Lydia rash of groin Apply topically to affected area 2 times a day . 60 g 11 01/03/2022 Active OneTouch Delica Plus [id number] TEST UP TO FOUR TIMES DAILY, E11.9 [...] XL)Indications:Non-i schemic cardiomyopathy (HCC),Coronary artery disease involving standing [place] coronary artery of standing rock heart without angina pectoris,HTN, goal below 140/90 [...] by clinician. 5 Tablet 0 03/12/2023 Active documented as of this encounter (statuses as of 06/23/2023) Active Problems Problem Noted Date Diagnosed Date [...] carrier 06/29/2021 Last Assessment & Plan: [facility] Triage Call: Reviewed last C&S [...] Continue synthroid Coronary artery disease invo lving standing rock coronary artery of standing rock heart without angina pectoris 07/03/2012 Overview: 60% [...] as of this encounter (statuses as of 06/23/2023) Resolved Problems Problem Noted Date Diagnosed Date [...] as of this encounter (statuses as of 06/23/2023) Immunizations Name Administration Dates Next Due COVID-19 mRNA, LNP-s, No Pre serve, 2-Dose Series ([employer]) 08/29/2021,10/23/2020,10/02/2020 Covid-19, Mrna, Lnp-s, Pf, B ivalent, 30 Mcg, IM, 12 yrs and above ([employer]) 08/02/2022 Pneumococcal Conjugate Vacc, 13 Valent (Prevnar) [...] AM EDT Scheduled Telephone [facility], [facility] 132 [facility] [place] [address] Coordinator, [facility] [address] [place] [address] 06/26/2023 5:30 PM EDT Home Visit [facility], [facility] 132 [facility] [place] [address] Destiny Schultz RN 132 [facility] [place] [address] 07/08/2023 1:45 PM EST Office Visit Urology, [facility] 132 [facility] [place] [address] Chandler Pena MD [address] [address] 08/08/2023 1:00 PM EST Telemedicine Pharmacy, [address] [place] [address] [place] [address] 08/20/2023 1:30 PM EST Office Visit Cardiology, [facility] 132 [facility] [place] [address] Mariano Patel MD [address] [place] [address] 12/03/2023 3:00 PM EDT Office Visit Dermatology [address] [place] [address] Sheryl Pena PA-C [address] [place] [address] [place] [address] 12/08/2023 1:00 PM EDT Office Visit Ophthalmology, [facility] [place] [address] Romel Mcclelland, DO [address] [place], [place] [address] [address] 01/06/2024 1:30 PM EDT Cardiac Studies Cardiology [address] [place] [address] [facility] [place] [address] 03/30/2024 3:40 PM EDT Office Visit Family Medicine [address] [place] [phone] Verónica Benavides MD [address] [place] [address] [place] [address] Health Maintenance Due Date Last Done Comments [...] Additional history exists CKD PHOS USE SMARTSET 35631 02/08/2024 06/01/2023, 08/07/2021, 11/09/2019, Additional history exists TSH 03/25/2024 03/25/2023, 07/0 10/2022, 10/28/2022, Additional history exists CKD HGB USE SMARTSET 97526 05/26/202405/26, 05/26/2023, 04/07/2023, Additional history exists Pneumococcal [...] Procedure Name Priority Date/Time Associated Diagnosis Comments ECHOCARDIOLOGY SCANNED RESULT 03/22/2023 documented in this encounter Results * ECHOCARDIOLOGY SCANNED RESULT (03/22/2023) 03/22/2023 No Physician Data Unknown ECHOCARDIOLOGY documented in this encounter Additional Health Concerns Infection Onset Date Last Indicated Resolved Time Respiratory Rule-Out 06/17/2023 06/17/2023 023 2:38 PM EDT Enterovirus (resp)/Rhinovirus 06/17/2023 06/17/2023 documented as of this encounter Advance Directives Documents on File Type Date Recorded Patient Security Expert Expl anation Advance Directives and Living Will 08/10/2021 ADVANCE DIRECTIVE / LIVING WILL LIVING WILL Healthcare Agents on File Name Relationship Healthcare Agent [facility] Communication Josselyn Judd [facility] Health Care Power of Attor nathalie Care Teams Assembler Leather Goods Relationship Specialty Start Date End Date Verónica Benavides MD [address] [place] [address] [place] [address] PCP - General Family Medicine 09/16/14 documented as of this encounter
--- OUTSIDE RECORDS SUMMARY | 2023-12-10 00:47 | External Medical Summary | Summary of Care ---
Author Name Unknown Organization [facility] Address [address] [place] [address] Phone [phone] Care Team Providers Care Environmental Programs Manager Name Role Phone Verónica Benavides MD Primary Care Provide r Reason for Visit * Reason Onset Date Comments Encounter Created in Error 06/16/2023 Encounter Details Date Type Department Care Team ([facility] Contact Info) Description 06/16/2023 Telephone [facility], [facility] [address] [place] [address] Abilio Colbert, [address] [facility] [place] [address] Encounter Created in Error Allergies Active Allergy Reactions Criticality Noted Date [...] in the morning. 0 08/08/2021 Active Nystatin 477670 UNIT/GM External Powder (Nystop)Indications: Lydia rash of groin Apply topically to affected area 2 times a day . 60 g 11 01/03/2022 Active OneTouch Delica Plus [id number] TEST UP TO FOUR TIMES DAILY, E11.9 [...] XL)Indications:Non-i schemic cardiomyopathy (HCC),Coronary artery disease involving [place] coronary artery of [place]ahu[place] heart without angina pectoris,HTN, goal below 140/90 Take 1 Tablet by mouth every evening. 90 Tablet 11 02/27/2023 Active Spironolactone 25 MG Oral Tablet (Aldactone)Indicatio ns:Non-ischemic cardiomyopathy (HCC) Take 0.5 Tablets by mouth in the morning. 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 documented in this encounter Plan of Treatment Upcoming Encounters Date Type Department Care Team (Late st Contact Info) Description 06/25/2023 10:00 AM EDT Scheduled Telephone [facility], [facility] 132 [facility] [place] [address] Coordinator, [facility] 132 [facility] [place] [address] 06/26/2023 5:30 PM EDT Home Visit [facility], [facility] [place] [address] Destiny Schultz RN 132 [facility] [place] [address] 07/07/2023 8:00 AM EST Office Visit Ophthalmology, [facility] 132 [facility] [place] [address] Romel Mcclelland DO [address] [place] [address] 07/08/2023 1:45 PM EST Office Visit Urology, [facility] 132 [facility] [place] [address] Chandler Pena MD [address] [place] [address] [place] [address] 08/08/2023 1:00 PM EST Telemedicine Pharmacy, [address] [place] [address] [place] [address] 08/20/2023 1:30 PM EST Office Visit Cardiology, [facility] 132 [facility] [place] [address] Mariano Patel MD [address] [facility] [place], [place] [address] 12/03/2023 3:00 PM EDT Office Visit Dermatology [address] [place] [address] Sheryl Pena PA-C [address] [place] [address] [place] [address] 12/16/2023 2:00 PM EDT Cardiac Studies Cardiology [address] [place] [address] [facility] 132 [facility] [place] [address] 03/30/2024 3:40 PM EDT Office Visit Family Medicine [address] [place] [phone] Vreónica Benavides MD [address] [place] [address] [place] [address] Health Maintenance Due Date Last Done Comments [...] Additional history exists CKD PHOS USE SMARTSET 13418 02/08/202401/23, 08/07/2021, 11/09/2019, Additional history exists TSH 03/25/2024 03/25/2023, 10/2022, 10/28/2022, Additional history exists CKD HGB USE SMARTSET 86745 05/26/202405/26, 05/26/2023, 04/07/2023, Additional history exists Pneumococcal [...] Documents on File Type Date Recorded 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
--- OUTSIDE RECORDS SUMMARY | 2023-12-10 00:47 | External Medical Summary | Summary of Care ---
Author Name Unknown Organization [facility] Address [address] [place] [address] Phone [phone] Care Team Providers Care Green Prize Packer Name Role Phone Verónica Benavides MD Primary Care Provide r Reason for Visit * Reason Onset Date Comments [facility]: Acute 06/19/2023 Encounter Details Date Type Department Care Team (Latest Contact Info) Description 06/19/2023 12:00 PM EDT Scheduled Telephone [facility], [facility] 132 [facility] [place] [address] Coordinator, [facility] 132 [facility] [place] [address] Canceled (Clinician Appointment Cancel Rescheduled at later date) Allergies Active Allergy Reactions Criticality Noted Date [...] in the morning. 0 08/08/2021 Active Nystatin 222167 UNIT/GM External Powder (Nystop)Indications: Lydia rash of groin Apply topically to affected area 2 times a day . 60 g 11 01/03/2022 Active OneTouch Delica Plus [id number] TEST UP TO FOUR TIMES DAILY, E11.9 [...] Active Dulaglutide 0.75 MG/0.5ML Subcutaneous Solution Pen-injector ([employer]) Inject 0.75 mg under the skin once [...] long-term current use of insulin ([facility]),Type 2 diabetes mellitus with hemoglobin A1c goal of less than 8.0% ([facility]) TEST UP TO FOUR TIMES DAILY 400 [...] mRNA, LNP-s, No Pre serve, 2-Dose Series ([employer]) 08/29/2021,10/23/2020,10/02/2020 Covid-19, Mrna, Lnp-s, Pf, B ivalent, [...] encounter Miscellaneous Notes * Addendum Note - Harshad Reveles DO - 06/19/2023 4:06 PM EDTAddended by: HARSHAD REVELES on: 06/19/2023 04:06 PM Modules accepted: Orders * Telephone Encounter - Harshad Reveles DO - 06/19/2023 4:05 PM EDT Since fosfomycin did not work, I recommend a trial of cefdinir which she has tolerated in the past. When used last year, Enterococcus was growing on the culture, culture now shows Klebsiella which issusceptible to cephalosporins. * Telephone Encounter - Tali Patel RN - 06/19/2023 1:00 PM EDT Preliminary urine culture resulted. No sensitivities as of yet Spoke with josselyn " Milky whitish/yellow urine continues w/ strong odor Doesn't usually run fevers with UTIs + chills today + decreased appetite from her normal today per DTR Please note DTR mentioned yesterday that fosfomyacin was ineffective See Dr reveles note Preferred pharmacy [facility] Tali Patel RN, BSN [facility] laminator preformsManager Infrastructure documented in this encounter Plan of Treatment Upcoming Encounters Date Type Department Care Team (Late st Contact Info) Description 06/20/2023 11:45 AM EDT Scheduled Telephone ising at [place], [facility] 132 [facility] [place] [address] Coordinator, [facility] 132 [facility] [place] [address] 06/26/2023 5:30 PM EDT Home Visit [facility], [facility] 132 [facility] [place] [address] Destiny Schultz, RN 132 [facility] [address] 07/07/2023 8:00 AM EST Office Visit Ophthalmology, [place] [address] Romel Mcclelland, [address] [address] 07/08/2023 1:45 PM EST Office Visit Urology, [facility] 132 [facility] [place] [address] Chandler Pena MD [address] [address] 08/08/2023 1:00 PM EST Telemedicine Pharmacy, [address] [place] [address] [place] [address] 08/20/2023 1:30 PM EST Office Visit Cardiology, [address] [address] Mariano Patel MD [address] [place] [address] 12/03/2023 3:00 PM EDT Office Visit Dermatology [address] [place] [address] Sheryl Pena PA-C [address] [place] [address] [place] [address] 12/16/2023 2:00 PM EDT Cardiac Studies Cardiology [address] [place] [address] Aleta Abel [address] [place] [address] 03/30/2024 3:40 PM EDT Office Visit Family Medicine [address] [place] [phone] Verónica Benavides MD [address] [place] [address] [place] [address] Health Maintenance Due Date Last Done Comments [...] Additional history exists CKD PHOS USE SMARTSET 55916 02/08/2024 06/1 01/2023, 08/07/2021, 11/09/2019, Additional history exists TSH 03/25/2024 03/25/2023, 07/0 10/2022, 10/28/2022, Additional history exists CKD HGB USE SMARTSET 13771 05/26/202405/26, 05/26/2023, 04/07/2023, Additional history exists Pneumococcal [...] Documents on File Type Date Recorded Patient Erp Manager Expl anation Advance Directives and Living Will 08/10/2021 ADVANCE DIRECTIVE / LIVING WILL LIVING WILL Healthcare Agents on File Name Relationship Healthcare Agent [facility] Communication Josselyn Judd Adult Child Health Care Power of Attor nathalie Care Teams Green Prize Packer Relationship Specialty Start Date End Date Verónica Benavides MD [address] [place] [address] [place] [phone] PCP - General Family Medicine 09/16/14 documented as of this encounter
--- OUTSIDE RECORDS SUMMARY | 2023-12-10 00:47 | External Medical Summary | Summary of Care ---
Author Name Unknown Organization [facility] Address [address] [place] [address] Phone [phone] Care Team Providers Care Breakdown Man Name Role Phone Verónica Benavides MD Primary Care Provide r Reason for Visit * Reason Onset Date Comments [facility]: Maintenance 06/20/2023 Encounter Details Date Type Department Care Team ([facility] Contact Info) Description 06/20/2023 11:45 AM EDT Scheduled Telephone [facility], [facility] 132 [facility] [place] [address] Coordinator, [facility] 132 [facility] [place] [address] Allergies Active Allergy Reactions Criticality Noted Date Comments Adhesive Tape Medium 01/30/2022 Ibuprofen Hives 01/13/2012 Aspirin Hives,Rash 09/15/2000 Sulfamethoxazole-Trimeth oprim Nausea/vomiting,Othe r (Please comment) 10/27/2020 Dizziness Ciprofloxacin Hcl 06/16/2019 Hoarse, dizzy,disoriented Morphine 09/21/2021 Blacked out Penicillins Hives,Rash 09/15/2000 Prednisone 12/30/2017 Weakness/memory changes/blurred vision documented as of this encounter (statuses as of 06/20/2023) Medications Medication Sig Dispensed Refills Start Date [...] in the morning. 0 08/08/2021 Active Nystatin 535746 UNIT/GM External Powder (Nystop)Indications: Lydia rash of groin Apply topically to affected area 2 times a day . 60 g 11 01/03/2022 Active OneTouch Delica Plus [id number] TEST UP TO FOUR TIMES DAILY, E11.9 [...] XL)Indications:Non-i schemic cardiomyopathy (HCC),Coronary artery disease involving [place] coronary artery of [place] heart without angina pectoris,HTN, goal below 140/90 Take 1 Tablet by mouth every evening. 90 Tablet 11 02/27/2023 Active Spironolactone 25 MG Oral Tablet (Aldactone)Indicatio ns:Non-ischemic cardiomyopathy (HCC) Take 0.5 Tablets by mouth in the morning. 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 Last Assessment & Plan: [facility] Triage Call: Reviewed last C&S - [...] Continue synthroid Coronary artery disease invo lving [place] coronary artery of [place] heart without angina pectoris 07/03/2012 [...] as of this encounter (statuses as of 06/20/2023) Resolved Problems Problem Noted Date Diagnosed Date [...] as of this encounter (statuses as of 06/20/2023) Immunizations Name Administration Dates Next Due COVID-19 mRNA, LNP-s, No Pre serve, 2-Dose Series ([employer]) 08/29/2021,10/23/2020,10/02/2020 Covid-19, Mrna, Lnp-s, Pf, B ivalent, [...] Telephone Encounter - Briseyda Rich RN - 06/20/2023 3:00 PM EDT Images from the original note were not included. [facility] Telephonic Nurse Follow-Up Call [facility] Subprogram: [facility] at Home Follow Up Call Type: Routine follow up call / Status Check Acute issue requiring follow-up call: Other: follow up on urine and chest xray results @OBJECTIVEBEGINOP@ Objective: 06/16/2023 3:59 PM 06/05/2023 1:25 PM [...] "LEFT VENTRICULAR EJECTION FRACTION" Remote Patient Monitoring: [facility] Scale: scale Oxygen Needs: NO supplemental oxygen needs identified DME Needs: NO DME needs identified Medications: New medication(s) added: cefdinir BID x 7 days ordered on 06/19 Subjective: Condition Status: Improvement in symptoms but not at baseline Current Concerns: Called and spoke with daughter / Josselyn ,she stated her mother is a little better today. No fever,taking antibiotic as ordered. Not much of an appetite, but drinking adequately. Had oxygen on last night and slept all night without coughing. Advised to call [facility] if her mothers condition changes or worsens. Disposition: Issue resolved. All appropriate follow up scheduled. Future Visits Scheduled: Future Appointments-next 60 days Date/Time Provider Specialty Dept Phone 06/25/2023 10:00 AM [facility] [phone] 06/26/2023 5:30 PM Destiny Schultz RN [facility] [phone] 07/07/2023 8:00 AM Romel Mcclelland, Ophthalmology [phone] 07/08/2023 1:45 PM Chandler Pena MD Urology [phone] 08/08/2023 1:00 PM [facility] [phone] 08/20/2023 1:30 PM (Arrive by 1:15 PM) Mariano Patel MD Cardiology [phone] 12/03/2023 3:00 PM (Arrive by 2:45 PM) Sheryl Pena PA-C Dermatology [phone] 12/16/2023 2:00 PM (Arrive by 1:45 PM) Aleta Abel [facility] Cardiology [phone] 03/30/2024 3:40 PM (Arrive by 3:25 PM) Verónica Benavides MD Family Medicine [phone] Briseyda Rich RN Case Supervisor [facility] documented in this encounter Plan of Treatment Upcoming Encounters Date Type Department Care Team (Late st Contact Info) Description 06/25/2023 10:00 AM EDT Scheduled Telephone [facility], [address] [place] [address] Coordinator, [facility] [place] [address] 06/26/2023 5:30 PM EDT Home Visit [facility], [facility] 132 [facility] [place]H [place] [address] Destiny Schultz, POPPY 132 [facility] [place] [address] 07/07/2023 8:00 AM EST Office Visit Ophthalmology, [address] [place] [address] Romel Mcclelland T, [address] [address] 07/08/2023 1:45 PM EST Office Visit Urology, [facility] 132 [facility] [place] [address] Chandler Pena MD [address] [place] [address] 08/08/2023 1:00 PM EST Telemedicine Pharmacy, [address] [place] [address] [place] [address] 08/20/2023 1:30 PM EST Office Visit Cardiology, [facility] 132 [facility] [place] [address] Mariano Patel MD [address] [place] [address] 12/03/2023 3:00 PM EDT Office Visit Dermatology [address] [place] [address] Sheryl Pena PA-C [address] [place] [address] [place] [address] 12/16/2023 2:00 PM EDT Cardiac Studies Cardiology [address] [place] [address] Aleta Abel [facility] 132 [facility] [place] [address] 03/30/2024 3:40 PM EDT Office Visit Family Medicine [address] [place] [phone] Verónica Benavides MD [address] [place] [address] [place] [address] Health Maintenance Due Date Last Done Comments [...] Additional history exists CKD PHOS USE SMARTSET 71461 02/08/2024 0601/2023, 08/07/2021, 11/09/2019, Additional history exists TSH 03/25/2024 03/25/2023, 0710/2022, 10/28/2022, Additional history exists CKD HGB USE SMARTSET 50771 05/26/202405/26, 05/26/2023, 04/07/2023, Additional history exists Pneumococcal [...] Documents on File Type Date Recorded Patient Allied Health Professional Expl anation Advance Directives and Living Will 08/10/2021 ADVANCE DIRECTIVE / LIVING WILL LIVING WILL Healthcare Agents on File Name Relationship Healthcare Agent [facility] Communication Josselyn [place] Adult Child Health Care Power of Attor nathalie Care Teams Breakdown Man Relationship Specialty Start Date End Date Verónica Benavides MD [address] [place] [address] [place] [address] PCP - General Family Medicine 09/16/14 documented as of this encounter
--- OUTSIDE RECORDS SUMMARY | 2023-12-10 00:48 | External Medical Summary | Summary of Care ---
Author Name Unknown Organization [facility] Address [address] [place] [address] Phone [phone] Care Team Providers Care College Recruiter Name Role Phone Verónica Benavides MD Primary Care Provide r Reason for Visit * Reason Onset Date Comments [facility]: Acute 06/19/2023 Encounter Details Date Type Department Care Team (Latest Contact Info) Description 06/19/2023 12:00 PM EDT Scheduled Telephone [facility], [facility] [address] [facility] [place] [address] Coordinator, [facility] 132 [facility] [place] [address] Canceled (Clinician Appointment Cancel Rescheduled at later [...] in the morning. 0 08/08/2021 Active Nystatin 188320 UNIT/GM External Powder (Nystop)Indications: Lydia rash of groin Apply topically to affected area 2 times a day . 60 g 11 01/03/2022 Active OneTouch Delica Plus Rlvzyl59G TEST UP TO FOUR TIMES DAILY, E11.9 [...] XL)Indications:Non-i schemic cardiomyopathy (HCC),Coronary artery disease involving [place] coronary artery of [place] heart without angina pectoris,HTN, goal below 140/90 Take 1 Tablet by mouth every evening. 90 Tablet 11 02/27/2023 Active Spironolactone 25 MG Oral Tablet (Aldactone)Indicatio ns:Non-ischemic cardiomyopathy (HCC) Take 0.5 Tablets by mouth in the morning. 45 Tablet 3 02/27/2023 Active Dulaglutide 0.75 MG/0.5ML Subcutaneous Solution Pen-injector (MOVL) Inject 0.75 mg under the skin once [...] Continue synthroid Coronary artery disease invo lving [place] coronary artery of [place] heart without angina pectoris 07/03/2012 Overview: 60% [...] mRNA, LNP-s, No Pre serve, 2-Dose Series (Cotap) 08/29/2021,10/23/2020,10/02/2020 Covid-19, Mrna, Lnp-s, Pf, B ivalent, 30 Mcg, IM, 12 yrs and above (Cotap) 08/02/2022 Pneumococcal Conjugate Vacc, 13 Valent (Prevnar) [...] ineffective See Dr reveles note Preferred pharmacy [facility] Tali Patel RN, BSN [facility] pole inspectorEngineering Design Supervisor documented in this encounter Plan of Treatment Upcoming Encounters Date Type Department Care Team (Late st Contact Info) Description 06/20/2023 11:45 AM EDT Scheduled Telephone [facility], [facility] 132 [facility] [place] [address] Coordinator, [facility] [address] [facility] [place] [address] 06/26/2023 5:30 PM EDT Home Visit [facility], [facility] [address] [place] [address] Destiny Schulzt RN 132 [facility] [place] [address] 07/07/2023 8:00 AM EST Office Visit Ophthalmology, [facility] 132 [facility] [place] [address] Romel Mcclelland T, DO [address] [place] [address] 07/08/2023 1:45 PM EST Office Visit Urology, [facility] 132 [facility] [place] [address] Chandler Pena MD [address] [address] [place] [address] 08/08/2023 1:00 PM EST Telemedicine Pharmacy, [address] [place] [address] [place] [address] 08/20/2023 1:30 PM EST Office Visit Cardiology, [facility] [address] [facility] [place] [address] Mariano Patel MD [address] [place] [address] 12/03/2023 3:00 PM EDT Office Visit Dermatology [address] [place] [address] Sheryl Pena PA-C [address] [place] [address] [place] [address] 12/16/2023 2:00 PM EDT Cardiac Studies Cardiology [address] [place] [address] Aleta Abel [facility] 132 [facility] [place] [address] 03/30/2024 3:40 PM EDT Office Visit Family Medicine [address] [place] [phone] Verónica Benavides MD [address] [place] [address] [place] [address] Health Maintenance Due Date Last Done Comments [...] Additional history exists CKD PHOS USE SMARTSET 98902 02/08/202401/23, 08/07/2021, 11/09/2019, Additional history exists TSH 03/25/2024 03/25/2023, 0710/2022, 10/28/2022, Additional history exists CKD HGB USE SMARTSET 19650 05/26/202405/26, 05/26/2023, 04/07/2023, Additional history exists Pneumococcal [...] Documents on File Type Date Recorded Patient Counselling Psychologist Expl anation Advance Directives and Living Will 08/10/2021 ADVANCE DIRECTIVE / LIVING WILL LIVING WILL Healthcare Agents on File Name Relationship Healthcare Agent Relationshi p Communication Josselyn Judd Adult Child Health Care Power of Attor nathalie Care Teams College Recruiter Relationship Specialty Start Date End Date Verónica Benavides MD [address] [place] [address] [place] [address] PCP - General Family Medicine 09/16/14 documented as of this encounter
--- OUTSIDE RECORDS SUMMARY | 2023-12-10 00:48 | External Medical Summary | Summary of Care ---
Author Name Unknown Organization [facility] Address [address] [place] [address] Phone [phone] Care Team Providers Care Waterproofer Helper Name Role Phone Verónica Benavides MD Primary Care Provide r Reason for Visit * Reason Comments [facility]: Acute Encounter Details Date Type Department Care Team ([facility] st Contact Info) Description 06/17/2023 8:30 AM EDT Home Visit [facility], [facility] [place] [address] Destiny Schultz, POPPY [address] [place] [address] Acute cough; SOB (shortness of breath); Fatigue, unspecified type Allergies Active Allergy Reactions Criticality Noted Date Comments Adhesive Tape Medium 01/30/2022 Ibuprofen Hives 01/13/2012 Aspirin Hives,Rash 09/15/2000 Sulfamethoxazole-Trimeth oprim Nausea/vomiting,Othe r (Please comment) 10/27/2020 Dizziness Ciprofloxacin Hcl 06/16/2019 Hoarse, dizzy,disoriented Morphine 09/21/2021 Blacked out Penicillins Hives,Rash 09/15/2000 Prednisone 12/30/2017 Weakness/memory changes/blurred vision documented as of this encounter (statuses as of 06/17/2023) Medications Medication Sig Dispensed Refills Start Date [...] in the morning. 0 08/08/2021 Active Nystatin 759342 UNIT/GM External Powder (Nystop)Indications: Lydia rash of groin Apply topically to affected area 2 times a day . 60 g 11 01/03/2022 Active OneTouch Delica Plus Xwujcj13G TEST UP TO FOUR TIMES DAILY, E11.9 [...] cardiomyopathy (HCC),Coronary artery disease involving [place] coronary artery of [place] heart without angina pectoris,HTN, goal below 140/90 Take 1 Tablet by mouth every evening. 90 Tablet 11 02/27/2023 Active Spironolactone 25 MG Oral Tablet (Aldactone)Indicatio ns:Non-ischemic cardiomyopathy (HCC) Take 0.5 Tablets by mouth in the morning. 45 Tablet 3 02/27/2023 Active Dulaglutide 0.75 MG/0.5ML Subcutaneous Solution Pen-injector ([employer]) Inject 0.75 mg under the skin once [...] as of this encounter (statuses as of 06/17/2023) Active Problems Problem Noted Date Diagnosed Date [...] 06/29/2021 Last Assessment & Plan: [facility] Triage Call: Reviewed last C&S - treated [...] Coronary artery disease invo lving [place] coronary artery of [place] heart without angina pectoris 07/03/2012 Overview: 60% [...] as of this encounter (statuses as of 06/17/2023) Resolved Problems Problem Noted Date Diagnosed Date [...] as of this encounter (statuses as of 06/17/2023) Immunizations Name Administration Dates Next Due COVID-19 mRNA, LNP-s, No Pre serve, 2-Dose Series ([employer]) 08/29/2021,10/23/2020,10/02/2020 Covid-19, Mrna, Lnp-s, Pf, B ivalent, 30 Mcg, IM, 12 yrs and above (Godengo) 08/02/2022 Pneumococcal Conjugate Vacc, 13 Valent (Prevnar) [...] as of this encounter Progress Notes * Destiny Schultz RN - 06/17/2023 9:10 AM EDT [facility] Double Ending Machine OperatorMedical Transport Specialist Visit Date: 06/17/2023 Time: 9:10 AM Name: Regla Stiles : 1935 Current Concerns: Patient seen for respiratory panel swab per Dr. Colbert Respiratory panel to [facility]. Destiny Byers RN 06/17/2023 9:10 AM documented in this encounter Plan of Treatment Upcoming Encounters Date Type Department Care Team (Late st Contact Info) Description 06/18/2023 10:00 AM EDT Scheduled Telephone [facility], [facility] [address] [place] [address] Coordinator, [facility] 132 [facility] [place] [address] 06/19/2023 12:00 PM EDT Scheduled Telephone [facility], [facility] [address] [place] [address] Coordinator, [facility] 132 [facility] [place] [address] 06/26/2023 5:30 PM EDT Home Visit [facility], [facility] [address] [place] [address] Destiny Schultz RN 132 [facility] [place] [address] 07/07/2023 8:00 AM EST Office Visit Ophthalmology, [facility] [address] [place] [address] Romel Mcclelland, DO 16 [facility] [place] [address] 07/08/2023 1:45 PM EST Office Visit Urology, [facility] 132 [facility] [place] [address] Chandler Pena MD 27 [facility] 270 [place] [address] 08/08/2023 1:00 PM EST Telemedicine Pharmacy, [address] [place] [address] [place] [address] 08/20/2023 1:30 PM EST Office Visit Cardiology, [facility] 132 [facility] [place] [address] Mariano Patel MD [address] [place] [address] 12/03/2023 3:00 PM EDT Office Visit Dermatology [address] [place] [address] Sheryl Pena PA-C [address] [place] [address] [place] [address] 12/16/2023 2:00 PM EDT Cardiac Studies Cardiology [address] [place] [address] Aleta Abel [facility] [place] [address] 03/30/2024 3:40 PM EDT Office Visit Family Medicine [address] [place] [phone] Verónica Benavides MD [address] [place] [address] [place] [address] Health Maintenance Due Date Last Done Comments [...] Additional history exists CKD PHOS USE SMARTSET 37495 02/08/202401/23, 08/07/2021, 11/09/2019, Additional history exists TSH 03/25/2024 03/25/2023, 07/0 10/2022, 10/28/2022, Additional history exists CKD HGB USE SMARTSET 31696 05/26/202405/26, 05/26/2023, 04/07/2023, Additional history exists Pneumococcal [...] Procedure Name Priority Date/Time Associated Diagnosis Comments RESPIRATORY PATHOGEN PANEL, PCR Routine 06/17/2023 9:11 AM EDT Acute cough SOB (shortness of breath) Fatigue, unspecified type documented in this encounter Results * (ABNORMAL) RESPIRATORY PATHOGEN PANEL, PCR (06/17/2023 9:11 AM EDT) Adenovirus by PCR Negative Negative 023 2:38 PM EDT [facility] Coronavirus 229E by PCR Negative Negative 06/17/2023 2:38 PM EDT [facility] Coronavirus HKU1 by PCR Negative Negative 06/17/2023 2:38 PM EDT [facility] Coronavirus NL63 by PCR Negative Negative 06/17/2023 2:38 PM EDT [facility] Coronavirus OC43 by PCR Negative Negative 06/17/2023 2:38 PM EDT [facility] Coronavirus SARS-CoV-2 by PCR Negative Negative 06/17/2023 2:38 PM EDT [facility] Human Metapneumovirus by PCR Negative Negative 06/17/2023 2:38 PM EDT [facility] Rhinovirus/Enterov irus by PCR Positive(A) Negative 06/17/2023 2:38 PM EDT [facility] Comment:Rhinovirus/Enterovir us detected by PCR (amplified probe). Influenza A Virus by PCR Negative Negative 06/17/2023 2:38 PM EDT [facility] Influenza B Virus by PCR Negative Negative 06/17/2023 2:38 PM EDT [facility] Parainfluenza Virus 1 by PCR Negative Negative 06/17/2023 2:38 PM EDT [facility] Parainfluenza Virus 2 by PCR Negative Negative 06/17/2023 2:38 PM EDT [facility] Parainfluenza Virus 3 by PCR Negative Negative 06/17/2023 2:38 PM EDT [facility] Parainfluenza Virus 4 by PCR Negative Negative 06/17/2023 2:38 PM EDT [facility] Respiratory Syncytial Virus by PCR Negative Negative 06/17/2023 2:38 PM EDT [facility] Bordetella pertussis by PCR Negative Negative 06/17/2023 2:38 PM EDT [facility] Chlamydia pneumoniae by PCR Negative Negative 06/17/2023 2:38 PM EDT [facility] Mycoplasma pneumoniae by PCR Negative Negative 06/17/2023 2:38 PM EDT [facility] Bordetella parapertussis by PCR Negative Negative 06/17/2023 2:38 PM EDT [facility] Comment: The primers that detect Rhinovirus may cross react with some Enterorviruses. The validation of bronchial specimens, tracheal aspirates, and throats for this assay was developed and performance characteristics determined by [employer]. The validation of alternate specimen types has not been cleared or approved by the U.S. Food and Drug Administration (FDA). It has been determined that such clearance or approval is not necessary. Upper Respiratory Nasopharyngeal swab / Unknown Non-blood Collection / Unknown 06/17/2023 9:11 AM EDT 06/17/2023 9:12 AM EDT Abilio Colbert DO LAB MICRO - GENERAL ORDERABLES Performing Organization Address City/State/[facility] Co de Phone Number [facility] [address] [facility] [place] [address] documented in this encounter Visit Diagnoses Diagnosis Acute cough SOB (shortness of breath) Shortness of breath Fatigue, unspecified type documented in this encounter Additional Health Concerns Infection Onset Date Last Indicated Resolved Time Respiratory Rule-Out 06/17/2023 06/17/2023 023 2:38 PM EDT documented as of this encounter Advance Directives Documents on File Type Date Recorded Patient Slat Basket Maker Helper Expl anation Advance Directives and Living Will 08/10/2021 ADVANCE DIRECTIVE / LIVING WILL LIVING WILL Healthcare Agents on File Name Relationship Healthcare Agent Relationshi p Communication Josselyn Judd Adult Child Health Care Power of Attor nathalie Care Teams Waterproofer Helper Relationship Specialty Start Date End Date Verónica Benavides MD [address] [place] [address] [place] [address] PCP - General Family Medicine 09/16/14 documented as of this encounter
--- OUTSIDE RECORDS SUMMARY | 2023-12-10 00:48 | External Medical Summary | Summary of Care ---
Author Name Unknown Organization [facility] Address [address] [place] [address] Phone [phone] Care Team Providers Care Autism Teacher Name Role Phone Verónica Benavides MD Primary Care Provide r Reason for Visit * Reason Onset Date Comments [facility]: Maintenance 06/17/2023 Encounter Details Date Type Department Care Team ([facility] Contact Info) Description 06/17/2023 10:00 AM EDT Scheduled Telephone [facility], [facility] 132 [facility] [place] [address] Coordinator, [facility] 132 [facility] [place] [address] Allergies Active Allergy Reactions Criticality Noted Date [...] in the morning. 0 08/08/2021 Active Nystatin 136062 UNIT/GM External Powder (Nystop)Indications: Lydia rash of groin Apply topically to affected area 2 times a day . 60 g 11 01/03/2022 Active OneTouch Delica Plus Ccmaxh68S TEST UP TO FOUR TIMES DAILY, E11.9 [...] XL)Indications:Non-i schemic cardiomyopathy (HCC),Coronary artery disease involving [place] coronary artery of [place] heart without angina pectoris,HTN, goal below 140/90 Take 1 Tablet by mouth every evening. 90 Tablet 11 02/27/2023 Active Spironolactone 25 MG Oral Tablet (Aldactone)Indicatio ns:Non-ischemic cardiomyopathy (HCC) Take 0.5 Tablets by mouth in the morning. 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 Last Assessment & Plan: [facility] Triage Call: Reviewed last C&S - [...] Continue synthroid Coronary artery disease invo lving [place] coronary artery of [place] heart without angina pectoris 07/03/2012 Overview: 60% [...] mRNA, LNP-s, No Pre serve, 2-Dose Series ([employer]) 08/29/2021,10/23/2020,10/02/2020 Covid-19, Mrna, Lnp-s, Pf, B ivalent, 30 Mcg, IM, 12 yrs and above ([employer]) 08/02/2022 Pneumococcal Conjugate Vacc, 13 Valent (Prevnar) [...] Telephone Encounter - Tali Patel RN - 06/17/2023 3:30 PM EDT [facility] Telephonic Nurse Follow-Up Call [facility] Subprogram: Primary [facility] at Home Follow Up Call Type: 24 hour follow up Acute issue requiring follow-up call: Other: cold sx and poss unresolved UTI @OBJECTIVEBEGINOP@ Objective: 06/16/2023 3:59 PM 06/05/2023 1:25 PM 06/04/2023 2:59 PM 05/24/2023 10:16 AM 05/07/2023 2:05 PM VITALS ACROSS ENCOUNTERS BP 102/72 118/62 108/58 110/64 Pulse 78 72 62 72 Weight 108.9 kg BMI 45.35 kg/m2 Lab Results Component Value Date BLOOD, URINE - [facility] Small (A) 06/02/2023 PROTEIN, URINE - [facility] Trace (A) 06/02/2023 ESTERASE, URINE - [facility] Large (A) 06/02/2023 WBC AUTO - [facility] 7.42 05/26/2023 WBC CLUMPS, URINE -[facility] Present (A) 06/02/2023 WBC, URINE - [facility] 50+ (A) 06/02/2023 NITRITE, URINE - [facility] Negative 06/02/2023 QUANT URINE CULTURE GROWTH >100,000 colonies/mL Klebsiella pneumoniae (A) 06/02/2023 Lab Results Component Value Date WBC AUTO [...] FRACTION" Remote Patient Monitoring: NONE Oxygen Needs: NEW supplemental oxygen needs. Pt new oxygen 2 lPM NC delivered today 06/17/23 DME Needs: NO DME needs identified Medications: New medication(s) added: promethazine DM @OBJECTIVEEND@ Subjective: Condition Status: Improvement in symptoms but not at baseline Current Concerns: Spoke to patients DTR velerie. Pt doing ok . No fevers,distress or worsening s/s PCR resulted--+ for rhinovirus. Josselyn aware Oxygen --Oxygen continuous at 2 liters/minute. May increase up to 5 liters/minute to maintain O2 sat >92%. delivered today per DTR . DME is Juana Ferreira ([phone]). Can we update med list CXR and urine still pending PCs placed to follow Disposition: Follow up call scheduled for tomorrow with [facility] Bindery Assistant Future Visits Scheduled: Future Appointments-next 60 days Date/Time Provider Specialty Dept Phone 06/26/2023 5:30 PM Destiny Schultz RN [facility] [phone] 07/07/2023 8:00 AM Romel Mcclelland DO Ophthalmology [phone] 07/08/2023 1:45 PM Chandler Pena MD Urology [phone] 08/08/2023 1:00 PM [facility] [phone] 08/20/2023 1:30 PM (Arrive by 1:15 PM) Mariano Patel MD Cardiology [phone] 12/03/2023 3:00 PM (Arrive by 2:45 PM) Sheryl Pena PA-C Dermatology [phone] 12/16/2023 2:00 PM (Arrive by 1:45 PM) [facility] Cardiology [phone] 03/30/2024 3:40 PM (Arrive by 3:25 PM) Verónica Benavides MD Family Medicine [phone] Tali Patel RN documented in this encounter Plan of Treatment Upcoming Encounters Date Type Department Care Team (Late st Contact Info) Description 06/18/2023 10:00 AM EDT Scheduled Telephone [facility], [facility] 132 [facility] [place] [address] Coordinator, [facility] 132 [facility] [place] [address] 06/19/2023 12:00 PM EDT Scheduled Telephone [facility], [address] [place] [address] Coordinator, [facility] 132 [facility] [place] [address] 06/26/2023 5:30 PM EDT Home Visit [facility], [address] [place] [address] Destiny Schultz RN 132 [place] [address] 07/07/2023 8:00 AM EST Office Visit Ophthalmology, [address] [place] [address] Romel Mcclelland, DO [address] [place] [address] 07/08/2023 1:45 PM EST Office Visit Urology, [facility] [address] Chandler Pena MD [address] [address] 08/08/2023 1:00 PM EST Telemedicine Pharmacy, [address] [place] [address] [place] [address] 08/20/2023 1:30 PM EST Office Visit Cardiology, [address] [place] [address] Mariano Patel MD [address] [place] [address] 12/03/2023 3:00 PM EDT Office Visit Dermatology [address] [place] [address] Sheryl Pena PA-C [address] [place] [address] [place] [address] 12/16/2023 2:00 PM EDT Cardiac Studies Cardiology [address] [place] [address] Page Pacer [facility] [address] [place] [address] 03/30/2024 3:40 PM EDT Office Visit Family Medicine [address] [place] [phone] Verónica Benavides MD [address] [place] [address] [place] [address] Health Maintenance Due Date Last Done Comments [...] Additional history exists CKD PHOS USE SMARTSET 27543 02/08/2024 0601/2023, 08/07/2021, 11/09/2019, Additional history exists TSH 03/25/2024 03/25/2023, 07/0 10/2022, 10/28/2022, Additional history exists CKD HGB USE SMARTSET 90049 05/26/202405/26, 05/26/2023, 04/07/2023, Additional history exists Pneumococcal [...] on File Type Date Recorded 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
--- OUTSIDE RECORDS SUMMARY | 2023-12-10 00:48 | External Medical Summary | Summary of Care ---
Author Name Unknown Organization [facility] Address [address] [place] [address] Phone [phone] Care Team Providers Care Welding Machine Operator Plasma Arc Name Role Phone Verónica Benavides MD Primary Care Provide r Reason for Visit * Reason Onset Date Comments [facility]: Maintenance 06/18/2023 Encounter Details Date Type Department Care Team ([facility] Contact Info) Description 06/18/2023 10:00 AM EDT Scheduled Telephone [facility] 132 [facility] [place] [address] Coordinator, [facility] 132 [facility] [place] [address] Allergies Active Allergy Reactions Criticality Noted Date Comments Adhesive Tape Medium 01/30/2022 Ibuprofen Hives 01/13/2012 Aspirin Hives,Rash 09/15/2000 Sulfamethoxazole-Trimeth oprim Nausea/vomiting,Othe r (Please comment) 10/27/2020 Dizziness Ciprofloxacin Hcl 06/16/2019 Hoarse, dizzy,disoriented Morphine 09/21/2021 Blacked out Penicillins Hives,Rash 09/15/2000 Prednisone 12/30/2017 Weakness/memory changes/blurred vision documented as of this encounter (statuses as of 06/18/2023) Medications Medication Sig Dispensed Refills Start Date [...] in the morning. 0 08/08/2021 Active Nystatin 943376 UNIT/GM External Powder (Nystop)Indications: Lydia rash of groin Apply topically to affected area 2 times a day . 60 g 11 01/03/2022 Active OneTouch Delica Plus [id number] TEST UP TO FOUR TIMES DAILY, E11.9 [...] XL)Indications:Non-i schemic cardiomyopathy (HCC),Coronary artery disease involving [place] coronary artery of [place] heart without angina pectoris,HTN, goal below 140/90 Take 1 Tablet by mouth every evening. 90 Tablet 11 02/27/2023 Active Spironolactone 25 MG Oral Tablet (Aldactone)Indicatio ns:Non-ischemic cardiomyopathy (HCC) Take 0.5 Tablets by mouth in the morning. 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 Last Assessment & Plan: [facility] Triage Call: Reviewed last C&S - [...] Continue synthroid Coronary artery disease invo lving [place] coronary artery of [place] heart without angina pectoris 07/03/2012 Overview: 60% [...] as of this encounter (statuses as of 06/18/2023) Resolved Problems Problem Noted Date Diagnosed Date [...] as of this encounter (statuses as of 06/18/2023) Immunizations Name Administration Dates Next Due COVID-19 mRNA, LNP-s, No Pre serve, 2-Dose Series (Anomo) 08/29/2021,10/23/2020,10/02/2020 Covid-19, Mrna, Lnp-s, Pf, B ivalent, 30 Mcg, IM, 12 yrs and above (Anomo) 08/02/2022 Influenza, Whole Virus 08/07/2000 Pneumococcal Conjugate [...] Telephone Encounter - Abilio Colbert DO - 06/18/2023 11:09 AM EDT Chest x-ray shows no acute cardiopulmonary process. Continue O2 as needed to maintain O2 sat >92% and continue symptomatic treatment. With normal chest x-ray and rhino virus/enterovirus on the respiratory panel, symptoms are viral and no need for antibiotic. Urine culture pending. Once culture results, will need to re-evaluate symptoms. I think it is more likely asymptomatic bacteriuria versus true infection but if symptomatic, will need to treat. * Telephone Encounter - Tali Patel RN - 06/18/2023 9:41 AM EDT FCC on for today to follow CXR and urine results No CXR results noted under scans or patient files Urine culture still pending [facility] stated yesterday that xray was completed and results were faxed to 7563# OSAs did not see any results. [facility] called again and asked to refax Tonie or Renato can we please see if xray results were received today. Thanks If not please call [facility] Bcipnm-[phone] , select option for completed results/xray, and provide rep with [facility] acct number [id number]. Thanks Tali Patel RN, BSN [facility] bicycle rental clerkTreatment Technician documented in this encounter Plan of Treatment Upcoming Encounters Date Type Department Care Team (Late st Contact Info) Description 06/19/2023 12:00 PM EDT Scheduled Telephone [facility] [place] [address] [place] [address] Coordinator, [facility] 132 [place] [address] 06/26/2023 5:30 PM EDT [facility] [address] [place] [address] Destiny Schultz, POPPY 132 [facility] [place] [address] 07/07/2023 8:00 AM EST Office Visit Ophthalmology, [facility] 132 [facility] [place] [address] Romel Mcclelland, DO [address] [place] [address] 07/08/2023 1:45 PM EST Office Visit Urology, [facility] 132 [facility] [place] [address] Chandler Pena MD [address] [address] [place] [address] 08/08/2023 1:00 PM EST Telemedicine Pharmacy, [address] [place] [address] [place] [address] 08/20/2023 1:30 PM EST Office Visit Cardiology, [address] [place] [address] Mariano Patel MD [address] [place] [address] 12/03/2023 3:00 PM EDT Office Visit Dermatology [address] [place] [address] Sheryl Pena PA-C [address] [place] [address] [place] [address] 12/16/2023 2:00 PM EDT Cardiac Studies Cardiology [address] [place] [address] Aleta Abel [address] [place] [address] 03/30/2024 3:40 PM EDT Office Visit [address] [place] [phone] Verónica Benavides MD [address] [place] [address] [place] [address] Health Maintenance Due Date Last Done Comments [...] Additional history exists CKD PHOS USE SMARTSET 39034 02/08/202401/23, 08/07/2021, 11/09/2019, Additional history exists TSH 03/25/2024 03/25/2023, 07/0 10/2022, 10/28/2022, Additional history exists CKD HGB USE SMARTSET 14891 05/26/202405/26, 05/26/2023, 04/07/2023, Additional history exists Pneumococcal [...] Documents on File Type Date Recorded Patient Manager Latin Expl anation Advance Directives and Living Will 08/10/2021 ADVANCE DIRECTIVE / LIVING WILL LIVING WILL Healthcare Agents on File Name Relationship [facility] Josselyn Judd Adult Child Health Care Power of Attor nathalie Care Teams Welding Machine Operator Plasma Arc Relationship Specialty Start Date End Date Verónica Benavides MD [address] [place] [address] [place] [address] PCP - General Family Medicine 09/16/14 documented as of this encounter
--- OUTSIDE RECORDS SUMMARY | 2023-12-10 00:48 | External Medical Summary | Summary of Care ---
Author Name Unknown Organization [facility] Address [address] [place] [address] Phone [phone] Care Team Providers Care Spice Miller Hammer Mill Name Role Phone Verónica Benavides MD Primary Care Provide r Reason for Visit * Reason Onset Date Comments Appointment 06/16/2023 Encounter Details Date Type Department Care Team (Late st Contact Info) Description 06/16/2023 Telephone [facility], [place] [address] [place] [address] [phone] Services, Scheduling [address] [place] [address] Appointment (/) Allergies Active Allergy Reactions Criticality Noted Date [...] in the morning. 0 08/08/2021 Active Nystatin 871735 UNIT/GM External Powder (Nystop)Indications: Lydia rash of groin Apply topically to affected area 2 times a day . 60 g 11 01/03/2022 Active OneTouch Delica Plus Ebvwdt70M TEST UP TO FOUR TIMES DAILY, E11.9 [...] XL)Indications:Non-i schemic cardiomyopathy (HCC),Coronary artery disease involving [place] coronary artery of rampart heart without angina pectoris,HTN, goal below 140/90 Take 1 Tablet by mouth every evening. 90 Tablet 11 02/27/2023 Active Spironolactone 25 MG Oral Tablet (Aldactone)Indicatio ns:Non-ischemic cardiomyopathy (HCC) Take 0.5 Tablets by mouth in the morning. 45 Tablet 3 02/27/2023 Active Dulaglutide 0.75 MG/0.5ML Subcutaneous Solution Pen-injector ([employer]) Inject 0.75 mg under the skin once [...] carrier 06/29/2021 Last Assessment & Plan: [facility] Triage Call: Reviewed last C&S [...] Continue synthroid Coronary artery disease invo lving ramp[place] coronary artery of rampart heart without angina pectoris 07/03/2012 Overview: 60% [...] encounter Miscellaneous Notes * Telephone Encounter - BETTY Epstein - 06/16/2023 4:32 PM EDT Tt request to scheduled rncm acute for 06/17 for resp swab, sched for 06/17 at 830, LMOM for daughter kadie Stat cxr order and pt ins/demo called in to [facility] and faxed the same Uploaded O2 order, Os testing, [facility] Referral [id number] Regla Stiles documented in this encounter Plan of Treatment Upcoming Encounters Date Type Department Care Team (Late st Contact Info) Description 06/18/2023 10:00 AM EDT Scheduled Telephone [facility], [address] [place] [address] Coordinator, [address] [place] [address] 06/19/2023 12:00 PM EDT Scheduled Telephone [facility], [address] [place] [address] Coordinator, [address] [place] [address] 06/26/2023 5:30 PM EDT [facility] Visit [facility], [facility] 132 [facility] [place] [address] Destiyn Schultz RN 132 [facility] [place] [address] 07/07/2023 8:00 AM EST Office Visit Ophthalmology, [facility] 132 [facility] [place] [address] Romel Mcclelland T, DO 16 [facility] [place] [address] 07/08/2023 1:45 PM EST Office Visit Urology, [facility] 132 [facility] [place] [address] Chandler Pena MD 27 [facility] [address] [place] [address] 08/08/2023 1:00 PM EST Telemedicine Pharmacy, [address] [place] [address] [place] [address] 08/20/2023 1:30 PM EST [facility] 132 [facility] [place] [address] Mariano Patel MD [address] [place], [place] [id number] 12/03/2023 3:00 PM EDT Office Visit Dermatology [address] [place] [address] Sheryl Pena PA-C [address] [place] [address] [place] [address] 12/16/2023 2:00 PM EDT Cardiac Studies Cardiology [address] [place] [address] Aleta Abel [facility] 132 [facility] [place] [address] 03/30/2024 3:40 PM EDT Office Visit Family Medicine [address] [place] [phone] Verónica Benavides MD [address] [place] [address] [place] [address] Health Maintenance Due Date Last Done Comments [...] Additional history exists CKD PHOS USE SMARTSET 08100 02/08/202401/23, 08/07/2021, 11/09/2019, Additional history exists TSH [...] Documents on File Type Date Recorded Patient Flatbed Stitcher Expl anation Advance Directives and Living Will 08/10/2021 ADVANCE DIRECTIVE / LIVING WILL LIVING WILL Healthcare Agents on File Name Relationship Healthcare Agent [facility] Communication [facility]osselyn [facility] Child Health Care Power of Attor nathalie Care Teams Spice [employer] Hammer Mill Relationship Specialty Start Date End Date Verónica Benavides MD [address] [place] [address] [place] [phone] PCP - General Family Medicine 09/16/14 documented as of this encounter
--- OUTSIDE RECORDS SUMMARY | 2023-12-10 00:48 | External Medical Summary | Summary of Care ---
Author Name Unknown Organization [facility] Address [address] [place] [address] Phone [phone] Care Team Providers Care School Community Relations Coordinator Name Role Phone Verónica Benavides MD Primary Care Provide r Reason for Visit * Reason Onset Date Comments [facility]: Maintenance 06/18/2023 Encounter Details Date Type Department Care Team ([facility] Contact Info) Description 06/18/2023 10:00 AM EDT Scheduled Telephone [facility], [facility] 132 [facility] [place] [address] Coordinator, [facility] 132 [facility] [place] [address] Allergies Active Allergy Reactions Criticality Noted Date [...] in the morning. 0 08/08/2021 Active Nystatin 824376 UNIT/GM External Powder (Nystop)Indications: Lydia rash of groin Apply topically to affected area 2 times a day . 60 g 11 01/03/2022 Active OneTouch Delica Plus Cfkfgi74A TEST UP TO FOUR TIMES DAILY, E11.9 [...] XL)Indications:Non-i schemic cardiomyopathy (HCC),Coronary artery disease involving [place] coronary artery of [place] heart without angina pectoris,HTN, goal below 140/90 Take 1 Tablet by mouth every evening. 90 Tablet 11 02/27/2023 Active Spironolactone 25 MG Oral Tablet (Aldactone)Indicatio ns:Non-ischemic cardiomyopathy (HCC) Take 0.5 Tablets by mouth in the morning. 45 Tablet 3 02/27/2023 Active Dulaglutide 0.75 MG/0.5ML Subcutaneous Solution Pen-injector ([employer] Inject 0.75 mg under the skin once [...] disease, without long-term current use of insulin ([facility]),Type 2 diabetes mellitus with hemoglobin A1c goal of less than 8.0% ([facility]) TEST UP TO FOUR TIMES [...] carrier 06/29/2021 Last Assessment & Plan: [facility] Triage Call: Reviewed last C&S - [...] Continue synthroid Coronary artery disease invo lving [place] coronary artery of [place] heart without angina pectoris 07/03/2012 Overview: [...] mRNA, LNP-s, No Pre serve, 2-Dose Series ([employer]) 08/29/2021,10/23/2020,10/02/2020 Covid-19, Mrna, Lnp-s, Pf, B ivalent, 30 Mcg, IM, 12 yrs and above ([employer]) 08/02/2022 Influenza, Whole Virus 08/07/2000 Pneumococcal Conjugate [...] Encounter - Tali Patel RN - 06/18/2023 12:26 PM EDT PC to Josselyn pt DTr she is aware of CXR results and orders per provider Per josselyn patient does not complain of burning w/ urination, however,her urine is "milky whitish/yellow" with very strong odor DTR wanted Dr. Colbert to know most recent use of fosfomyacin was not effective She states it was working then once stopped urine reverted back quickly Awaiting urine culture. PC placed on for tomorrow Tali Patel RN, BSN [facility] pc maintenance technicianEngine Pilot * Telephone Encounter - Abilio Colbert DO [...] or patient files Urine culture still pending [facility] stated yesterday that xray was completed and results were faxed to [phone]# OSAs did not see any results. [facility] called again and asked to refax Tonie or Renato can we please see if xray results were received today. Thanks If not please call [facility] Qydoem-[phone] , select option for completed results/xray, and provide rep with [facility] acct number [id number]. Thanks Tali Patel RN, BSN [facility] pc maintenance technicianEngine Pilot documented in this encounter Plan of Treatment Upcoming Encounters Date Type Department Care Team (Late st Contact Info) Description 06/19/2023 12:00 PM EDT Scheduled Telephone [facility], [address] [place] [address] Coordinator, [facility] 132 [facility] [place] [address] 06/26/2023 5:30 PM EDT [facility] Visit [facility], [facility] 132 [facility] [place] [address] Destiny Schultz RN 132 [facility] [place] [address] 07/07/2023 8:00 AM EST Office Visit Ophthalmology, [address] [place] [address] Romel Mcclelland T, DO [address] [place] [address] 07/08/2023 1:45 PM EST Office Visit Urology, [address] [place] [address] Chandler Pena MD [address] [place] [address] [place] [address] 08/08/2023 1:00 PM EST Telemedicine Pharmacy, [address] [place] [address] [place] [address] 08/20/2023 1:30 PM EST Office Visit Cardiology, [address] [place] [address] Mariano Patel MD [address] [facility] [address] 12/03/2023 3:00 PM EDT Office Visit Dermatology [address] [place] [address] Sheryl Pena PA-C [address] [place] [address] [place] [address] 12/16/2023 2:00 PM EDT Cardiac Studies Cardiology [address] [place] [address] Page Pacer [facility] 132 [facility] [place] [address] 03/30/2024 3:40 PM EDT Office Visit Family Medicine [address] [place] [phone] Verónica Benavides MD [address] [place] [address] [place] [address] Health Maintenance Due Date Last Done Comments [...] Additional history exists CKD PHOS USE SMARTSET 26484 02/08/202401/23, 08/07/2021, 11/09/2019, Additional history exists TSH 03/25/2024 03/25/2023, 10/2022, 10/28/2022, Additional history exists CKD HGB USE SMARTSET 92916 05/26/202405/26, 05/26/2023, 04/07/2023, Additional history exists Pneumococcal [...] Documents on File Type Date Recorded Patient Travel Med Surg Rn Expl 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 Communication Josselyn Judd Adult Child Health Care Power of Attor nathalie Care Teams School Community Relations Coordinator Relationship Specialty Start Date End Date Verónica Benavides MD [address] [place] [address] [place] [phone] PCP - General Family Medicine 09/16/14 documented as of this encounter
--- OUTSIDE RECORDS SUMMARY | 2023-12-10 00:48 | External Medical Summary | Summary of Care ---
Author Name Unknown Organization [facility] Address [address] [place] [address] Phone [phone] Care Team Providers Care Cable Maker Name Role Phone Verónica Benavides MD Primary Care Provide r Reason for Visit * Reason Onset Date Comments [facility]: Maintenance 06/18/2023 Encounter Details Date Type Department Care Team ([facility] Contact Info) Description 06/18/2023 10:00 AM EDT Scheduled Telephone [facility], [facility] 132 [facility] [place] [address] Coordinator, [facility] 132 [facility] [place] [address] Allergies Active Allergy Reactions Criticality Noted Date [...] in the morning. 0 08/08/2021 Active Nystatin 639453 UNIT/GM External Powder (Nystop)Indications: Lydia rash of groin Apply topically to affected area 2 times a day . 60 g 11 01/03/2022 Active OneTouch Delica Plus Flezch11G TEST UP TO FOUR TIMES DAILY, E11.9 [...] schemic cardiomyopathy (HCC),Coronary artery disease involving [place] coronary artery of [place] heart without angina pectoris,HTN, goal below 140/90 Take 1 Tablet by mouth every evening. 90 Tablet 11 02/27/2023 Active Spironolactone 25 MG Oral Tablet (Aldactone)Indicatio ns:Non-ischemic cardiomyopathy (HCC) Take 0.5 Tablets by mouth in the morning. 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 Last Assessment & Plan: [facility] Triage Call: Reviewed last C&S [...] synthroid Coronary artery disease invo lving [place] coronary artery of [place] heart without angina pectoris 07/03/2012 Overview: [...] mRNA, LNP-s, No Pre serve, 2-Dose Series ([employer]) 08/29/2021,10/23/2020,10/02/2020 Covid-19, Mrna, Lnp-s, Pf, B ivalent, 30 Mcg, IM, 12 yrs and above ([employer]) 08/02/2022 Pneumococcal Conjugate Vacc, 13 Valent (Prevnar) [...] or patient files Urine culture still pending [facility] stated yesterday that xray was completed and results were faxed to [facility] OSAs did not see any results. [facility] called again and asked to refax Tonie or Renato can we please see if xray results were received today. Thanks If not please call tony [phone] , select option for completed results/xray, and provide rep with [facility] acct number [id number]. Thanks Tali Patel RN, BSN [facility] fuse cup expanderBalance Assembler documented in this encounter Plan of Treatment Upcoming Encounters Date Type Department Care Team (Late st Contact Info) Description 06/19/2023 12:00 PM EDT Scheduled Telephone [facility] at [place], [facility] 132 [facility] [place] [address] Coordinator, [facility] [place] [address] 06/26/2023 5:30 PM EDT [facility] [place], [facility] [address] [place] [address] Destiny Schultz RN 132 [facility] [place] [address] 07/07/2023 8:00 AM EST Office Visit Ophthalmology, [facility] [address] [place] [address] Romel Mcclelland, DO [facility] [place] [address] 07/08/2023 1:45 PM EST Office Visit Urology, [facility] [address] [place] [address] Chandler Pena MD [address] [place] [address] [place] [address] 08/08/2023 1:00 PM EST Telemedicine Pharmacy, [address] [place] [address] [place] [address] 08/20/2023 1:30 PM EST Office Visit Cardiology, [facility] [address] Mariano Patel MD [address] [place] [address] 12/03/2023 3:00 PM EDT Office Visit Dermatology [address] [place] [address] Sheryl Pena PA-C [address] [place] [address] [place] [address] 12/16/2023 2:00 PM EDT Cardiac Studies Cardiology [address] [place] [address] Aleta Abel [facility] 132 [facility] [place] [address] 03/30/2024 3:40 PM EDT Office Visit Family Medicine [address] [place] [phone] Verónica Benavides MD [address] [place] [address] [place] [address] Health Maintenance Due Date Last Done Comments [...] Additional history exists CKD PHOS USE SMARTSET 01525 02/08/202401/23, 08/07/2021, 11/09/2019, Additional history exists TSH 03/25/2024 03/25/2023, 07/0 10/2022, 10/28/2022, Additional history exists CKD HGB USE SMARTSET 69203 05/26/202405/26, 05/26/2023, 04/07/2023, Additional history exists Pneumococcal [...] Documents on File Type Date Recorded Patient Doctor Of Naprapathy Expl anation Advance Directives and Living Will 08/10/2021 ADVANCE DIRECTIVE / LIVING WILL LIVING WILL Healthcare Agents on File Name Relationship Healthcare Agent [facility] Communication Josselyn Judd Adult Child Health Care Power of Attor nathalie Care Teams Cable Maker Relationship Specialty Start Date End Date Verónica Benavides MD [address] [place] [address] [place] [phone] PCP - General Family Medicine 09/16/14 documented as of this encounter
--- OUTSIDE RECORDS SUMMARY | 2023-12-10 00:49 | External Medical Summary ---
Author Name Unknown Address Unknown Organization [id number]:LABORATORY [facility] [place] - [address] [facility] [address] Laboratory Report Ordering Provider Test Date Status EMORY PATRICIA 06/17/2023 08:04:07 Final Observation Date Value Abnormality Reference (Units ) Status Color of Urine by Auto 06/17/2023 08:04:07 Yellow Colorless, Light Yellow, Yellow, Dark Yellow Final Clarity, Urine 06/17/2023 08:04:07 Cloudy Abnormal Clear Final Glucose [Mass/volume] in Urine by Automated test strip 06/17/2023 08:04:07 Negative Negative (mg/dL) Final Bilirubin.total [Presence] in Urine by Automated test strip 06/17/2023 08:04:07 Negative Negative Final Ketones [Mass/volume] in Urine by Automated test strip 06/17/2023 08:04:07 Negative Negative (mg/dL) Final Specific gravity, Urine 06/17/2023 08:04:07 1.009 1.003-1.030 Final Hemoglobin [Presence] in Urine by Automated test strip 06/17/2023 08:04:07 Negative Negative Final pH, Urine 06/17/2023 08:04:07 7.5 5.0-7.5 (Units) Final Protein [Mass/volume] in Urine by Automated test strip 06/17/2023 08:04:07 Trace Abnormal Negative (mg/dL) Final Urobilinogen [Mass/volume] in Urine by Automated test strip 06/17/2023 08:04:07 Normal Normal (mg/dL) Final Nitrite [Presence] in Urine by Automated test strip 06/17/2023 08:04:07 Negative Negative Final Leukocyte esterase [Presence] in Urine by Automated test strip 06/17/2023 08:04:07 Large Abnormal Negative Final RBC, Urine 06/17/2023 08:04:07 0-2 0-2 (/HPF) Final WBC, Urine 06/17/2023 08:04:07 50+ Abnormal 0-2 (/HPF) Final Bacteria [#/area] in Urine sediment by Microscopy high power field 06/17/2023 08:04:07 >200 Abnormal 0-25 (/HPF) Final Hyaline casts, Urine 06/17/2023 08:04:07 1-4 Abnormal None (/LPF) Final CULTURE, URINE - [facility] 06/17/2023 08:04:07 Final Quantitative urine culture t o be performed Performing Location LABORATORY [facility] [place] - [address] [facility] [address]
--- OUTSIDE RECORDS SUMMARY | 2023-12-10 00:49 | External Medical Summary | Summary of Care ---
Author Name Unknown Organization [facility] Address [address] [place] [address] Phone [phone] Care Team Providers Care Dental Instrument Maker Name Role Phone Verónica Benavides MD Primary Care Provide r Reason for Visit * Reason Onset Date Comments Appointment 06/16/2023 Encounter Details Date Type Department Care Team (Late st Contact Info) Description 06/16/2023 Telephone [facility], [place] [address] [place] [address] [phone] Services, Scheduling [address] [place] [address] Appointment (/) Allergies Active Allergy Reactions Criticality Noted Date Comments Adhesive Tape Medium 01/30/2022 Ibuprofen Hives 01/13/2012 Aspirin Hives,Rash 09/15/2000 Sulfamethoxazole-Trimeth oprim Nausea/vomiting,Othe r (Please comment) 10/27/2020 Dizziness Ciprofloxacin Hcl 06/16/2019 Hoarse, dizzy,disoriented Morphine 09/21/2021 Blacked out Penicillins Hives,Rash 09/15/2000 Prednisone 12/30/2017 Weakness/memory changes/blurred vision documented as of this encounter (statuses as of 06/16/2023) Medications Medication Sig Dispensed Refills Start Date [...] in the morning. 0 08/08/2021 Active Nystatin 718226 UNIT/GM External Powder (Nystop)Indications: Lydia rash of groin Apply topically to affected area 2 times a day . 60 g 11 01/03/2022 Active OneTouch Delica Plus [id number] TEST UP TO FOUR TIMES DAILY, E11.9 [...] XL)Indications:Non-i schemic cardiomyopathy (HCC),Coronary artery disease involving [place] coronary artery of [place] heart without angina pectoris,HTN, goal below 140/90 Take 1 Tablet by mouth every evening. 90 Tablet 11 02/27/2023 Active Spironolactone 25 MG Oral Tablet (Aldactone)Indicatio ns:Non-ischemic cardiomyopathy (HCC) Take 0.5 Tablets by mouth in the morning. 45 Tablet 3 02/27/2023 Active Dulaglutide 0.75 MG/0.5ML Subcutaneous Solution Pen-injector (Your Tribute) Inject 0.75 mg under the skin once [...] as of this encounter (statuses as of 06/16/2023) Active Problems Problem Noted Date Diagnosed Date [...] carrier 06/29/2021 Last Assessment & Plan: [facility] Triage Call: Reviewed last C&S - [...] Continue synthroid Coronary artery disease invo lving [place] coronary artery of [place] heart without angina pectoris 07/03/2012 [...] as of this encounter (statuses as of 06/16/2023) Resolved Problems Problem Noted Date Diagnosed Date [...] as of this encounter (statuses as of 06/16/2023) Immunizations Name Administration Dates Next Due COVID-19 [...] and faxed the same Uploaded O2 order, pt ins/demo to [facility] Referral [id number] Regla Stiles documented in this encounter Plan of Treatment Upcoming Encounters Date Type Department Care Team (Late st Contact Info) Description 06/17/2023 8:30 AM EDT Home Visit [facility], [facility] [address] [facility] [place] [address] Destiny Schultz, RN [address] [facility] [place] [address] 06/17/2023 10:00 AM EDT Scheduled Telephone [facility] [place], [facility] [address] [facility] [place] [address] Coordinator, [facility] [address] [facility] [place] [address] 06/26/2023 5:30 PM EDT Home Visit [facility], [facility] [address] [facility] [place] [address] Destiny Schultz, POPPY [address] [facility] [place] [address] 07/07/2023 8:00 AM EST Office Visit Ophthalmology, [facility] [address] [facility] [place] [address] Romel Mcclelland T, DO [address] [facility] [place] [address] 07/08/2023 1:45 PM EST Office Visit Urology, [facility] [address] [facility] [place] [address] Chandler Pena MD [address] [facility] [address] [place] [address] 08/08/2023 1:00 PM EST Telemedicine Pharmacy, [address] [place] [address] [place] [address] 08/20/2023 1:30 PM EST Office Visit Cardiology, [facility] [address] [place] [address] Mariano Patel MD [address] [place] [address] 12/03/2023 3:00 PM EDT Office Visit Dermatology [address] [place] [address] Sheryl Pena PA-C [address] [place] [address] [place] [address] 12/16/2023 2:00 PM EDT Cardiac Studies Cardiology [address] [place] [address] Ann-Marie Abelr [facility] 132 [place] [address] 03/30/2024 3:40 PM EDT Office Visit Family Medicine [address] [place] [phone] Verónica Benavides MD [address] [place] [address] [place] [address] Health Maintenance Due Date Last Done Comments [...] Additional history exists CKD PHOS USE SMARTSET 44714 02/08/202401/23, 08/07/2021, 11/09/2019, Additional history exists TSH 03/25/2024 03/25/2023, 07/0 10/2022, 10/28/2022, Additional history exists CKD HGB USE SMARTSET 85704 05/26/202405/26, 05/26/2023, 04/07/2023, Additional history exists Pneumococcal [...] Documents on File Type Date Recorded Patient [place] Worker Expl anation Advance Directives and Living Will 08/10/2021 ADVANCE DIRECTIVE / LIVING WILL LIVING WILL Healthcare Agents on File Name Relationship [facility] Josselyn Judd Adult Child Health Care Power of Attor nathalie Care Teams Dental Instrument Maker Relationship Specialty Start Date End Date Verónica Benavides MD [address] [place] [address] [place] [address] PCP - General Family Medicine 09/16/14 documented as of this encounter
--- OUTSIDE RECORDS SUMMARY | 2023-12-10 00:49 | External Medical Summary ---
Author Name Unknown Address Unknown Organization K01:LABORATORY [facility] [place] - [address] [facility] [address] Laboratory Report Ordering Provider Test Date Status EMORY PATRICIA 06/17/2023 09:11:08 Final Observation Date Value Abnormality Reference (Units ) Status Adenovirus DNA [Presence] in Nasopharynx by BASIM with non-probe detection 06/17/2023 09:11:08 Negative Negative Final Human coronavirus 229E RNA [Presence] in Nasopharynx by BASIM with non-probe detection 06/17/2023 09:11:08 Negative Negative Final Human coronavirus HKU1 RNA [Presence] in Nasopharynx by BASIM with non-probe detection 06/17/2023 09:11:08 Negative Negative Final Human coronavirus NL63 RNA [Presence] in Nasopharynx by BASIM with non-probe detection 06/17/2023 09:11:08 Negative Negative Final Human coronavirus OC43 RNA [Presence] in Nasopharynx by BASIM with non-probe detection 06/17/2023 09:11:08 Negative Negative Final SARS-CoV-2 (COVID-19) RNA [Presence] in Nasopharynx by BASIM with non-probe detection 06/17/2023 09:11:08 Negative Negative Final Human metapneumovirus RNA [Presence] in Nasopharynx by BASIM with non-probe detection 06/17/2023 09:11:08 Negative Negative Final Rhinovirus+Enterovirus RNA [Presence] in Nasopharynx by BASIM with non-probe detection 06/17/2023 09:11:08 Positive Abnormal Negative Final Rhinovirus/Enterovirus detec nica by PCR (amplified probe). Influenza virus A RNA [Prese nce] in Nasopharynx by BASIM with non-probe detection 06/17/2023 09:11:08 Negative Negative Final Influenza virus B RNA [Prese nce] in Nasopharynx by BASIM with non-probe detection 06/17/2023 09:11:08 Negative Negative Final Parainfluenza virus 1 RNA [P resence] in Nasopharynx by BASIM with non-probe detection 06/17/2023 09:11:08 Negative Negative Final Parainfluenza virus 2 RNA [P resence] in Nasopharynx by BASIM with non-probe detection 06/17/2023 09:11:08 Negative Negative Final Parainfluenza virus 3 RNA [P resence] in Nasopharynx by BASIM with non-probe detection 06/17/2023 09:11:08 Negative Negative Final Parainfluenza virus 4 RNA [P resence] in Nasopharynx by BASIM with non-probe detection 06/17/2023 09:11:08 Negative Negative Final Respiratory syncytial virus RNA [Presence] in Nasopharynx by BASIM with non-probe detection 06/17/2023 09:11:08 Negative Negative F inal Bordetella pertussis.pertuss is toxin promoter region [Presence] in Nasopharynx by BASIM with non-probe detection 06/17/2023 09:11:08 Negative Negative Final Chlamydophila pneumoniae DNA [Presence] in Nasopharynx by BASIM with non-probe detection 06/17/2023 09:11:08 Negative Negative Final Mycoplasma pneumoniae DNA [P resence] in Nasopharynx by BASIM with non-probe detection 06/17/2023 09:11:08 Negative Negative Final Bordetella parapertussis IS1 001 DNA [Presence] in Nasopharynx by BASIM with non-probe detection 06/17/2023 09:11:08 Negative Negative F inal
The primers that detect Rhinovirus may cross react with some Enterorviruses. The validation of bronchial specimens, tracheal aspirates, and throats for this assay was developed and performance characteristics determined by [employer]. The validation of alternate specimen types has not been cleared or approved by the U.S. Food and Drug Administration (FDA). It has been determined that such clearance or approval is not necessary. Performing Location LABORATORY [facility] [place] - [facility] [address] [facility] [address]
--- OUTSIDE RECORDS SUMMARY | 2023-12-10 00:49 | External Medical Summary ---
Author Name Unknown Address Unknown Organization K01:LABORATORY [facility] [place] - [address] [facility] [address] [facility] [address] Laboratory Report Ordering Provider Test Date Status EMORY PATRICIA 06/17/2023 08:04:07 Final <10,000 colonies/ml mixed no rmal rachid Observation Date Value Abnormality Reference (Units ) Status Bacteria identified in Specimen by Culture 06/17/2023 08:04:07 [id number]^KLEBSIE LLA OXYTOCA Abnormal Final >100,000 colonies/mL Klebsie lla oxytoca Performing Location LABORATORY [facility] [place] - [address] [facility] [address] Ordering Provider Test Date Status EMORY PATRICIA 06/17/2023 08:04:07 Final Observation Date Value Abnormality Reference (Units ) Status Ampicillin + Sulbactam 06/17/2023 08:04:07 <=2 Susceptible Final Cefepime susceptibility 06/17/2023 08:04:07 <=1 Susceptible Final Ceftriaxone suceptibility 06/17/2023 08:04:07 <=1 Susceptible Final Ciprofloxacin 06/17/2023 08:04:07 <=0.25 Susceptible Final Due to serious side effects, the FDA has advised against using Ciprofloxacin to treat uncomplicated UTIs and respiratory tract infections unless there are no alternative treatment options. Gentamicin susceptibility 06/17/2023 08:04:07 <=1 Susc eptible Final Nitrofurantoin susceptibility 06/17/2023 08:04:07 <=16 Susceptible Final Piperacillin + Tazobactamsusceptibility 06/17/2023 08:04:07 <=4 Susceptible Final TMP-SMZ susceptibility 06/17/2023 08:04:07 <=20 Suscept ible Final Test: Culture, Urine, Quanti tative
Specimen Source: Urine, Clean Catch
Specimen Type: Urine
Specimen Date: 06/17/2023 8:04 AM
Result Date: 06/19/2023 2:33 PM
Result Status: Final result
Abnormal: Yes
Resulting Lab: LABORATORY [facility]
[address]
[place] [address]

CULTURE

>100,000 colonies/mL Klebsiella oxytoca (Abnormal)

<10,000 colonies/ml mixed normal rachid

SUSCEPTIBILITY

Klebsiella oxytoca
METHOD MICROBROTH DILUTIONS

AMPICILLIN/SULBACTAM <=2 Susceptible
CEFEPIME <=1 Susceptible
CEFTRIAXONE <=1 Susceptible
CIPROFLOXACIN <=0.25 Susceptible [1]
GENTAMICIN <=1 Susceptible
NITROFURANTOIN <=16 Susceptible
PIPERACILLIN TAZOBACTAM <=4 Susceptible
TRIMETH/SULFAMETHOXAZOLE <=20 Susceptible

[1] Due to serious side effects, the FDA has advised against using
Ciprofloxacin to treat uncomplicated UTIs and respiratory tract infections
unless there are no alternative treatment options.

null Performing Location LABORATORY [facility] [place] - [address] [facility] [address]
--- OUTSIDE RECORDS SUMMARY | 2023-12-10 00:49 | External Medical Summary | Summary of Care ---
Author Name Unknown Organization [facility] Address [address] [place] [address] Phone [phone] Care Team Providers Care Reconciliation Specialist Name Role Phone Verónica Benavides MD Primary Care Provide r Reason for Visit * Reason Comments [facility]: Acute Encounter Details Date Type Department Care Team (Late st Contact Info) Description 06/16/2023 3:30 PM EDT Telemedicine [facility], [facility] [address] [facility] [place] [address] Abilio Colbert, DO [address] [place] [place] [address] Monserrat Lloyd [facility] [address] [place] [address] [place] [address] Acute cough*; SOB (shortness of breath); Fatigue, unspecified type; Hypoxia Allergies Active Allergy Reactions Criticality Noted Date [...] in the morning. 0 08/08/2021 Active Nystatin 154339 UNIT/GM External Powder (Nystop)Indications: Lydia rash of groin Apply topically to affected area 2 times a day . 60 g 11 01/03/2022 Active OneTouch Delica Plus [id number] TEST UP TO FOUR TIMES DAILY, E11.9 [...] Active Dulaglutide 0.75 MG/0.5ML Subcutaneous Solution Pen-injector (Zenoss) Inject 0.75 mg under the skin once [...] without long-term current use of insulin ([facility]),Type 2 diabetes mellitus with hemoglobin A1c goal of less than 8.0% ([facility]) TEST UP TO FOUR TIMES [...] mRNA, LNP-s, No Pre serve, 2-Dose Series (Bloc) 08/29/2021,10/23/2020,10/02/2020 Covid-19, Mrna, Lnp-s, Pf, B ivalent, [...] Sign Reading Time Taken Comments Blood Pressure 102/72 06/16/2023 3:59 PM EDT Pulse 78 06/16/2023 3:59 PM EDT Temperature 37 C (98.6 F) 06/16/2023 3:59 PM EDT Respiratory Rate 20 06/16/2023 3:59 PM EDT Oxygen Saturation 92% 06/16/2023 3:59 PM EDT Inhaled Oxygen Concentration - - Weight - - Height - - Body Mass Index - - documented in this encounter Progress Notes * Monserrat Lloyd, [facility] Concrete [facility]cher - 06/16/2023 3:59 PM EDT Community [facility] Concrete [facility]cher Visit Date: 06/16/2023 Time: 4:00 PM Name: Regla Stiles : 1935 Referral Source: Provider Source of Information: Patient and daughter/caregiver, Josselyn Spoken language: Pakistani Patient can read in Pakistani: Yes. Call Center Coordinator needed: No. COVID-19 screening completed: Yes Vitals: Vital signs completed: Yes, vital signs within normal range. BP 102/72 (BP Site: Left Arm, BP Position: Sitting, BP Cuff Size: Large) | Pulse 78 | Temp 37 C (98.6 F) | Resp 20 | SpO2 92% Condition Changes: Changes in health or social status since last visit: [facility] home visit for acute telemed with [facility] provider The patient has new concerns since last visit: Yes, daughter reports approx one week ago, patient began to have a non productive cough through the night, which was keeping her awake. Gradually began coughing more during the day. Yesterday, patient began to have occasional productive cough with green/yellow sputum. Daughter reports patient had multiple visitors over the past week to celebrate her birthday. Daughter also reports patient was recently treated with fosfomycin, however urine is cloudy again. Progress towards goals since last visit: continues living in her own home with assistance of family/caregivers. Medications: Medication review completed? No, Does the patient have barriers to medication adherence? No. Patient reports difficulty paying for medications or might in the future: No. Telehealth: This is a telehealth visit: Yes. Type of telehealth visit: Acute Visit conducted with: Physician/AP Symptoms Surveys and Evaluations: MAHC10 completed this visit: Yes. Score is 4 or more? Yes, notified Provider/House Decorator Last flowsheet values for MAHC10: Age 65+: 1 (06/16/2023 4:00 PM) Diagnosis (3 or more co-existing): 1 (06/16/2023 4:00 PM) Prior history of falls within 3 months: 0 (06/16/2023 4:00 PM) Incontinence: 1 (06/16/2023 4:00 PM) Visual impairment: 1 (06/16/2023 4:00 PM) Impaired functional mobility: 1 (06/16/2023 4:00 PM) Environmental hazards: 0 (06/16/2023 4:00 PM) Poly Pharmacy (4 or more prescriptions - any type): 1 (06/16/2023 4:00 PM) Pain affecting level of function: 0 (06/16/2023 4:00 PM) Cognitive impairment: 1 (06/16/2023 4:00 PM) Score - a score of 4 or more is considered at risk for fallin (06/16/2023 4:00 PM) Heart Failure Checklist A "good day" for the patient looks like little or no SOB or fatigue. Today is different than a "good day": Yes. Patient stated there is more edema, shortness of breath, cough, change in color of mucus, and/or fever. Patient describes sleep as Change in sleep pattern or ease. Has been waking through the night to go to living room and sleep in recliner chair The patient has been asked to track the amount of fluid they drink: Yes. Describe how patient tracks fluid volume: labels bottled water to ensure drinking 3 per day. There is an AMC scale in the home: No. Typically, the patient's meals look like Patient's food choices are lower in sodium. Plan: Reinforced patient's three red flags by the care team 1. Increased SOB, edema 2. Fall 3. Urinary symptoms confusion, burning, cloudy urine Plan for patient: Urine specimen obtained and transported to lab at [facility]. Follow Up: Patient encouraged to call the intake phone number for all urgent but not emergent issues. Scheduled to follow up with patient in as needed. Monserrat Lloyd [facility] 06/16/2023 4:00 PM Electronically signed by Monserrat Lloyd [facility] Concrete [facility]cher at 06/17/2023 9:23 AM EDT * Abilio Colbert DO - 06/16/2023 3:30 PM EDT Images from the original note were not included. [facility] Problem Oriented Charting Provider Visit Date: 06/16/2023 Time: 3:[address] [facility] Sub-Program: Primary Care at Home [facility] Episode Start Date: Noted: 05/08/2018 Assessment and Plan #1 Acute cough (Primary) - XR Chest 2 Views - Respiratory Pathogen Panel, PCR; Future; Expected date: 06/16/2023 #2 SOB (shortness of breath) - XR Chest 2 Views - Respiratory Pathogen Panel, PCR; Future; Expected date: 06/16/2023 #3 Fatigue, unspecified type - XR Chest 2 Views - Respiratory Pathogen Panel, PCR; Future; Expected date: 06/16/2023 - Urinalysis, Reflex to Culture (Not for Neutropenic Patients); Future; Expected date: 06/16/2023 #4 Hypoxia - Home Oxygen (DME) Additional Medical Decision Making: Concern for viral process vs PNA. Will get resp panel and CXR. Her daughter feels that her urine did not improve after the recent course of fosfomycin. Will repeatUA. Scheduled appointments in the next 60 days: Future Appointments-next 60 days Date/Time Provider Specialty Dept Phone 06/16/2023 3:30 PM Monserrat Lloyd [facility]; DO [facility] [phone] 06/17/2023 10:00 AM [facility] Gynecological Assistant [facility] [phone] 06/26/2023 5:30 PM Destiny Schultz, POPPY [facility] [phone] 07/07/2023 8:00 AM Romel Mcclelland DO Ophthalmology [phone] 07/08/2023 1:45 PM Chandler Pena MD Urology [phone] 08/08/2023 1:00 PM [facility] [phone] 08/20/2023 1:30 PM (Arrive by 1:15 PM) Mariano Patel MD Cardiology [phone] 12/03/2023 3:00 PM (Arrive by 2:45 PM) Sheryl Pena PA-C Dermatology [phone] 12/16/2023 2:00 PM (Arrive by 1:45 PM) [facility] Baldemar Salcedo [facility] Cardiology [phone] 03/30/2024 3:40 PM (Arrive by 3:25 PM) Verónica Benavides MD Family Medicine [phone] A total of 25 minutes was spent face to face (via video-based telemedicine if designated as a telemedicine visit) Subjective Subjective Is this a Telemedicine Visit? Yes, Patient location: HOME. I was not in a hospital or clinic location. After connecting through televideo, patient was verified with two unique identifiers. Patient (or authorized legal correspondence representative) was then informed that this was a Telemedicine visit and being conducted confidentially over secure lines. Methods to assure confidentiality were taken. Patient acknowledged consent and understanding of privacy and security of the Telemedicine visit. The patient agreed to participate. Reason For [facility] Visit: Acute needs Current Concerns: Regla Stiles is a 88 year old female seen today for a [facility] provider visit. Today's concerns are: States that she "could be better." Cough started Friday. Productive starting yesterday. SOB at rest. Worse since the end of last week. O2 sat dropped to 84% last evening while ambulating. Drops in to the 80s when resting. No O2 in thehome. No fever. No known sick contacts but has been around multiple people recently to celebrate her birthday. Urine is cloudy. Does not feel that the fosfomycin totally cleared up the recent infection. Significant fatigue. Coughing is keeping her awake at night but was better last night with promethazine-DM. Objective Objective Vitals: 06/16/23 1559 Temp: 37 C (98.6 F) Pulse: 78 Resp: 20 SpO2: 92% BP: 102/72 Last Weights: Wt Readings from Last 3 Encounters: 06/05/23 108.9 kg (240 lb) 04/15/23 112 kg (247 lb) 02/26/23 108.9 kg (240 lb) Last BPs: BP Readings from Last 4 Encounters: 06/16/23 102/72 06/04/23 118/62 05/24/23 108/58 05/07/23 110/64 Lab Review: I have reviewed the following results: BMP results Recent Labs Units 05/26/23 1011 04/07/23 0648 03/31/23 0710 SODIUM - [facility] mmol/L 139 140 138 POTASSIUM - [facility] mmol/L 3.7 4.2 4.4 CHLORIDE - [facility] mmol/L 99 102 101 CO2 - [facility] mmol/L 26 29 24 CREATININE - [facility] mg/dL 1.0 1.0 0.9 BUN - [facility] mg/dL 22* 20 17 CBC results Recent Labs Units 05/26/23 1011 04/07/23 0648 03/31/23 0710 WBC AUTO - [facility] K/uL 7.42 6.02 5.57 HGB - [facility] g/dL 12.0 10.1* 10.2* HCT - [facility] % 38.0 30.2* 31.2* PLATELET AUTO - [facility] K/uL 348 280 278 Medication Review "Bottles Out" medication review not performed today due to acute issue with medication list reviewed and updated in the EMR as appropriate Abilio Colbert DO 3:09 PM *Communication sent to PCP (via autofax if [facility]), [facility] Care Team members,relevant Specialty Care Physicians* IF OXYGEN NOT IN HOME: Patient pulse ox 92% on room air at rest. Patient pulse ox 84% on room air during ambulation. Able to tolerate 1 minutes of ambulation. Additional SpO2 testing scheduled to be completed when oxygen in home. Documentation at that time will be faxed by G@ intake s/p upcoming HV. documented in this encounter Plan of Treatment Upcoming Encounters Date Type Department Care Team (Late st Contact Info) Description 06/17/2023 10:00 AM EDT Scheduled Telephone [facility], [facility] [address] [facility] [place] [address] Coordinator, [facility] [address] [facility] [place] [address] 06/26/2023 5:30 PM EDT Home Visit [facility], [facility] [address] [place] [address] Destiny Schultz, RN 132 [place] [address] 07/07/2023 8:00 AM EST Office Visit Ophthalmology, [address] [place] [address] Romel Mcclelland, [address] [address] 07/08/2023 1:45 PM EST Office Visit Urology, [facility] 132 [place] [address] Chandler Pena MD [address] [address] [place] [address] 08/08/2023 1:00 PM EST Telemedicine Pharmacy, [address] [place] [address] [place] [address] 08/20/2023 1:30 PM EST Office Visit Cardiology, [address] [place] [address] Mariano Patel MD [address] [place] [address] 12/03/2023 3:00 PM EDT Office Visit Dermatology [address] [place] [address] Sheryl Pena PA-C [address] [place] [address] [place] [address] 12/16/2023 2:00 PM EDT Cardiac Studies Cardiology [address] [place] [address] Aleta Abel [facility] 132 [facility] [place] [address] 03/30/2024 3:40 PM EDT Office Visit Family Medicine [address] [place] [phone] Verónica Benavides MD [address] [place] [address] [place] [address] Pending Results Name Type Priority Associated Diagnoses Date /Time RESPIRATORY PATHOGEN PANEL, PCR Lab Routine Acute cough SOB (shortness of breath) Fatigue, unspecified type 06/17/2023 9:11 AM EDT URINALYSIS, REFLEX TO CULTURE (NOT FOR NEUTROPENIC PATIENTS) Lab Routine Fatigue, unspecified type 06/17/2023 8:04 AM EDT Scheduled Orders Name Type Priority Associated Diagnoses Orde r Schedule XR CHEST 2 VIEWS Medical Imaging STAT Acute cough SOB (shortness of breath) Fatigue, unspecified type Ordered: 06/16/2023 RESPIRATORY PATHOGEN PANEL, PCR Lab Routine Acute cough SOB (shortness of breath) Fatigue, unspecified type Expected: 06/16/2023 (Approximate), Expires: 06/15/2024 URINALYSIS, REFLEX TO CULTURE (NOT FOR NEUTROPENIC PATIENTS) Lab Routine Fatigue, unspecified type Expected: 06/16/2023, Expires: 06/16/2024 Health Maintenance Due Date Last Done Comments [...] Additional history exists CKD PHOS USE SMARTSET 83215 02/08/202401/23, 08/07/2021, 11/09/2019, Additional history exists TSH 03/25/2024 03/25/2023, 07/0 10/2022, 10/28/2022, Additional history exists CKD HGB USE SMARTSET 95058 05/26/202405/26, 05/26/2023, 04/07/2023, Additional history exists Pneumococcal Vaccine: 65+ Years Completed 09/11/2015, 05/25/2008, 06/23/2001 GARDASIL-HPV IMMUNIZATION SERIES Aged Out No longer eligible based on patient's age to complete this topic MENINGOCOCCAL (MENACTRA/MENVEO) Aged Out No longer eligible based on patient's age to complete this topic documented as of this encounter Medical Devices Not on filedocumented as of this encounter Visit Diagnoses Diagnosis Acute cough- Primary SOB (shortness of breath) Shortness of breath Fatigue, unspecified type Hypoxia Hypoxemia documented in this encounter Advance Directives Documents on File Type Date Recorded Patient Manufacturing Team Member Expl anation Advance Directives and Living Will 08/10/2021 ADVANCE DIRECTIVE / LIVING WILL LIVING WILL Healthcare Agents on File Name Relationship Healthcare Agent [facility] Communication Josselyn Judd Adult Child Health Care Power of Attor nathalie Care Teams Reconciliation Specialist Relationship Specialty Start Date End Date Verónica Benavides MD [address] [place] [address] [place] [phone] PCP - General Family Medicine 09/16/14 documented as of this encounter
--- OUTSIDE RECORDS SUMMARY | 2023-12-10 00:49 | External Medical Summary | Summary of Care ---
Author Name Unknown Organization [facility] Address [address] [place] [address] Phone [phone] Care Team Providers Care Net Lead Developer Name Role Phone Verónica Benavides MD Primary Care Provide r Reason for Visit * Reason Comments Outpatient Testing Encounter Details Date Type Department Care Team (Late st Contact Info) Description 06/17/2023 8:10 AM EDT Laboratory Laboratory [address] [place] [phone] , Specimen Drop Off [address] [place] [phone] Fatigue, unspecified type Allergies Active Allergy Reactions [...] in the morning. 0 08/08/2021 Active Nystatin 147452 UNIT/GM External Powder (Nystop)Indications: Lydia rash of groin Apply topically to affected area 2 times a day . 60 g 11 01/03/2022 Active OneTouch Delica Plus Faeaqy99M TEST UP TO FOUR TIMES DAILY, E11.9 [...] XL)Indications:Non-i schemic cardiomyopathy (HCC),Coronary artery disease involving [place] coronary artery of [place] heart without angina pectoris,HTN, goal below 140/90 Take 1 Tablet by mouth every evening. 90 Tablet 11 02/27/2023 Active Spironolactone 25 MG Oral Tablet (Aldactone)Indicatio ns:Non-ischemic cardiomyopathy (HCC) Take 0.5 Tablets by mouth in the morning. 45 Tablet 3 02/27/2023 Active Dulaglutide 0.75 MG/0.5ML Subcutaneous Solution Pen-injector (Digital Ocean) Inject 0.75 mg under the skin once [...] Continue synthroid Coronary artery disease invo lving [place] coronary artery of [place] heart without angina pectoris 07/03/2012 Overview: 60% [...] mRNA, LNP-s, No Pre serve, 2-Dose Series (EoeMobile) 08/29/2021,10/23/2020,10/02/2020 Covid-19, Mrna, Lnp-s, Pf, B ivalent, 30 Mcg, IM, 12 yrs and above ([employer]oe[employer]) 08/02/2022 Pneumococcal Conjugate Vacc, 13 Valent (Prevnar) [...] Description 06/17/2023 8:30 AM EDT Home Visit [facility] [address] [address] Destiny Schultz, RN 132 [facility] [place] [address] 06/17/2023 10:00 AM EDT Scheduled Telephone [facility], [address] [place] [address] Coordinator, [facility] [place] [address] 06/26/2023 5:30 PM EDT Home Visit [facility], [facility] 132 [address] [place] [address] Destiny Schultz, POPPY 132 [facility] [place] [address] 07/07/2023 8:00 AM EST Office Visit Ophthalmology, [facility] 132 [facility] [place] [address] Romel Mcclelland T, DO [address] [place] [address] 07/08/2023 1:45 PM EST Office Visit Urology, [facility] 132 [facility] [place] [address] Chandler Pena MD [address] [place] [address] [place] [address] 08/08/2023 1:00 PM EST Telemedicine Pharmacy, [address] [place] [address] [place] [address] 08/20/2023 1:30 PM EST Office Visit Cardiology, [address] [place] [address] [facility] [address] 12/03/2023 3:00 PM EDT Office Visit Dermatology [address] [place] [address] Sheryl Pena PA-C [address] [place] [address] [place] [address] 12/16/2023 2:00 PM EDT Cardiac Studies Cardiology [address] [place] [address] Aleta Abel [facility] 132 [facility] [place] [address] 03/30/2024 3:40 PM EDT Office Visit Family Medicine [address] [place] [phone] Verónica Benavides MD [address] [place] [address] [place] [address] Pending Results Name Type Priority Associated Diagnoses Date /Time URINALYSIS, REFLEX TO CULTURE (NOT FOR NEUTROPENIC PATIENTS) Lab Routine Fatigue, unspecified type 06/17/2023 8:04 AM EDT URINALYSIS, REFLEX TO CULTURE (CUP ONLY) Lab Routine Fatigue, unspecified type 06/17/2023 8:04 AM EDT URINALYSIS, REFLEX TO CULTURE Lab Routine Fatigue, unspecified type 06/17/2023 8:04 AM EDT Health Maintenance Due Date Last Done Comments [...] Additional history exists CKD PHOS USE SMARTSET 65862 02/08/202401/23, 08/07/2021, 11/09/2019, Additional history exists TSH 03/25/2024 03/25/2023, 07/0 10/2022, 10/28/2022, Additional history exists CKD HGB USE SMARTSET 92640 05/26/202405/26, 05/26/2023, 04/07/2023, Additional history exists Pneumococcal Vaccine: 65+ Years Completed 09/11/2015, 05/25/2008, 06/23/2001 GARDASIL-HPV IMMUNIZATION SERIES Aged Out No longer eligible based on patient's age to complete this topic MENINGOCOCCAL (MENACTRA/MENVEO) Aged Out No longer eligible based on patient's age to complete this topic documented as of this encounter Medical Devices Not on filedocumented as of this encounter Visit Diagnoses Diagnosis Fatigue, unspecified type documented in this encounter Advance Directives Documents on File Type Date Recorded Patient Vtc Technician Expl anation Advance Directives and Living Will 08/10/2021 ADVANCE DIRECTIVE / LIVING WILL LIVING WILL Healthcare Agents on File Name Relationship Healthcare Agent [facility] Communication Josselyn Judd Adult Child Health Care Power of Attor nathalie Care Teams Net Lead Developer Relationship Specialty Start Date End Date Verónica Benavides MD [address] [place] [address] [place] [phone] PCP - General Family Medicine 09/16/14 documented as of this encounter
--- OUTSIDE RECORDS SUMMARY | 2023-12-10 00:50 | External Medical Summary | Summary of Care ---
Author Name Unknown Organization [facility] Address [address] [place] [address] Phone [phone] Care Team Providers Care Electric Power Line Repairer Name Role Phone Verónica Benavides MD Primary Care Provide r Reason for Visit * Reason Onset Date Comments [facility]: Maintenance 06/16/2023 Encounter Details Date Type Department Care Team ([facility] Contact Info) Description 06/16/2023 Telephone [facility], [facility] [address] [place] [address] [facility], Nurse [facility] [address] [place] [address] [facility]: Maintenance Allergies Active Allergy [...] in the morning. 0 08/08/2021 Active Nystatin 851150 UNIT/GM External Powder (Nystop)Indications: Lydia rash of groin Apply topically to affected area 2 times a day . 60 g 11 01/03/2022 Active Promethazine-DM 6.25-15 MG/5ML Oral Syrup Take by mouth 5 mL as needed in the morning AND 5 mL as needed at noon AND 5 mL as needed in the evening AND 5 mL as needed before bedtime for Cough. 120 mL 1 05/04/2022 Active OneTouch Delica Plus [id number] TEST UP TO FOUR TIMES DAILY, E11.9 [...] Active Dulaglutide 0.75 MG/0.5ML Subcutaneous Solution Pen-injector (Synapse) Inject 0.75 mg under the skin once [...] without long-term current use of insulin ([facility]),Type 2 diabetes mellitus with hemoglobin A1c goal of less than 8.0% ([facility]) TEST UP TO FOUR TIMES DAILY 400 [...] 3 days. 3 Packet 0 06/04/2023 Active documented as of this encounter (statuses [...] mRNA, LNP-s, No Pre serve, 2-Dose Series ([facility]) 08/29/2021,10/23/2020,10/02/2020 Covid-19, Mrna, Lnp-s, Pf, B ivalent, 30 Mcg, IM, 12 yrs and above ([facility]) 08/02/2022 Pneumococcal Conjugate Vacc, 13 Valent (Prevnar) [...] Telephone Encounter - Tali Patel RN - 06/16/2023 10:42 AM EDT [facility] provider visit scheduled today for cough Patient + UTI 06/02/23. Macrobid ordered 06/04/23 PCs placed RNCM HV 06/26/23 Tali Patel RN, BSN [facility] field specialistDisbursement Clerk documented in this encounter Plan of Treatment Upcoming Encounters Date Type Department Care Team (Late st Contact Info) Description 06/16/2023 3:30 PM EDT Telemedicine [facility], [facility] [address] [facility] [place] [address] Abilio Colbert, DO [address] [facility] [place] [address] Monserrat Lloyd, Community Health Project Economist [address] [address] [place] [address] 06/17/2023 10:00 AM EDT Scheduled Telephone [facility], [facility] 132 [facility] [place] [address] Coordinator, [facility] [address] [facility] [place] [address] 06/26/2023 5:30 PM EDT Home Visit [facility], [facility] 132 [facility] [place] [address] Destiny Schultz, POPPY 132 [facility] [place] [address] 07/07/2023 8:00 AM EST Office Visit Ophthalmology, [facility] [address] [place] [address] Romel Mcclelland T, DO 16 [facility] [place] [address] 07/08/2023 1:45 PM EST Office Visit Urology, [facility] 132 [facility] [place] [address] Chandler Pena MD 27 [facility] [address] [place] [address] 08/08/2023 1:00 PM EST Telemedicine Pharmacy, [address] [place] [address] [place] [address] 08/20/2023 1:30 PM EST Office Visit Cardiology, [address] [place] [address] Mariano Patel MD [address] [place] [address] 12/03/2023 3:00 PM EDT Office Visit Dermatology [address] [place] [address] Sheryl Pena PA-C [address] [place] [address] [place] [address] 12/16/2023 2:00 PM EDT Cardiac Studies Cardiology [address] [place] [address] Page Pacer [facility] 132 [facility] [address] 03/30/2024 3:40 PM EDT Office Visit Family Medicine [address] [place] [phone] Verónica Benavides MD [address] [address] [place] [address] Health Maintenance Due Date Last Done Comments [...] Additional history exists CKD PHOS USE SMARTSET 98413 02/08/202401/23, 08/07/2021, 11/09/2019, Additional history exists TSH 03/25/2024 03/25/2023, 07/0 10/2022, 10/28/2022, Additional history exists CKD HGB USE SMARTSET 94925 05/26/202405/26, 05/26/2023, 04/07/2023, Additional history exists Pneumococcal [...] Documents on File Type Date Recorded Patient Guest Service Agent Expl anation Advance Directives and Living Will 08/10/2021 ADVANCE DIRECTIVE / LIVING WILL LIVING WILL Healthcare Agents on File Name Relationship Healthcare Agent Relationshi p Communication Josselyn Judd Adult Child Health Care Power of Attor nathalie Care Teams Electric Power Line Repairer Relationship Specialty Start Date End Date Verónica Benavides MD [address] [place] [address] [place] [address] PCP - General Family Medicine 09/16/14 documented as of this encounter
--- OUTSIDE RECORDS SUMMARY | 2023-12-10 00:50 | External Medical Summary | Summary of Care ---
Author Name Unknown Organization [facility] Address [address] [place] [address] Phone [phone] Care Team Providers Care Project Controls Specialist Name Role Phone Verónica Benavides MD Primary Care Provide r Reason for Visit * Reason Onset Date Comments Medication Refill 06/16/2023 Encounter Details Date Type Department Care Team (Late st Contact Info) Description 06/16/2023 Refill Family Medicine [address] [phone] Verónica Benavides MD [address] [place] [phone] Allergies Active Allergy Reactions Criticality Noted [...] in the morning. 0 08/08/2021 Active Nystatin 199797 UNIT/GM External Powder (Nystop)Indications :Lydia rash of groin Apply topically to affected area 2 times a day . 60 g 11 01/03/2022 Active OneTouch Delica Plus [id number] TEST UP TO FOUR TIMES DAILY, E11.9 [...] XL)Indications:Non- ischemic cardiomyopathy (HCC),Coronary artery disease involving chilkoot coronary artery of chilkoot heart without angina pectoris,HTN, goal below 140/90 Take 1 Tablet by mouth every evening. 90 Tablet 11 02/27/2023 Active Spironolactone 25 MG Oral Tablet (Aldactone)Indicati ons:Non-ischemic cardiomyopathy (HCC) Take 0.5 Tablets by mouth in the morning. 45 Tablet 3 02/27/2023 Active Dulaglutide 0.75 MG/0.5ML Subcutaneous Solution Pen-injector ([facility]) Inject 0.75 mg under the skin once [...] for Cough. 120 mL 1 06/16/2023 Active Promethazine-DM 6.25-15 MG/5ML Oral Syrup Take by mouth 5 mL as needed in the morning AND 5 mL as needed at noon AND 5 mL as needed in the evening AND 5 mL as needed before bedtime for Cough. 120 mL 1 05/04/2022 3 Discontinu ed(Refill) documented as of this [...] Continue synthroid Coronary artery disease invo lving chilkoot coronary artery of chilkoot heart without angina pectoris 07/03/2012 Overview: 60% [...] mRNA, LNP-s, No Pre serve, 2-Dose Series (Selectron) 08/29/2021,10/23/2020,10/02/2020 Covid-19, Mrna, Lnp-s, Pf, B ivalent, [...] Miscellaneous Notes * Telephone Encounter - Verónica Benavides MD - 06/16/2023 3:41 PM EDT Signed Prescriptions: Disp Refills Promethazine-DM 6.25-15 MG/5ML Oral Syrup 120 mL 1 Sig: Take 5 mL by mouth 4 times a day as needed for Cough. Authorizing Provider: VERÓNICA BENAVIDES * Telephone Encounter - Bertha [place] shear grinder operator - 06/16/2023 2:53 PM EDT Did you pend patient's preferred pharmacy and medication before forwarding?yes Pharmacy: [facility], [address] [place] Pending Prescriptions: Disp Refills Promethazine-DM 6.25-15 MG/5ML Oral Syrup 120 mL 1 Sig: Take 5 mL by mouth 4 times a day as needed for Cough. Last Visit: 12/05/2022 (in office), 04/22/2023 (telemedicine) Next Visit: 03/30/2024 If no future appointments scheduled, and last appointment is greater than a year ago, please schedule patient for a follow-up appointment Last date the medication was ordered: 05/04/2022 Is this request for a controlled substance?No [...] PM HGBA1C 6.4 (H) 06/06/2020 11:14 AM documented in this encounter Plan of Treatment Upcoming Encounters Date Type Department Care Team (Late st Contact Info) Description 06/17/2023 10:00 AM EDT Scheduled Telephone [facility], [facility] [address] [place] [address] Coordinator, [facility] [address] [place] [address] 06/26/2023 5:30 PM EDT Home Visit [facility] [place], [facility] [address] [place] [address] Destiny Schultz, POPPY [address] [place] [address] 07/07/2023 8:00 AM EST Office Visit Ophthalmology, [facility] [address] [place] [address] Romel Mcclelland T, DO [address] [place] [address] [place] [address] 07/08/2023 1:45 PM EST Office Visit Urology, [facility] 132 [facility] [place] [address] Chandler Pena MD 27 [facility] 270 [place] [address] 08/08/2023 1:00 PM EST Telemedicine Pharmacy, [address] [place] [address] [place] [address] 08/20/2023 1:30 PM EST Office Visit Cardiology, [facility] 132 [facility] [place] [address] Mariano Patel MD [address] [place] [address] 12/03/2023 3:00 PM EDT Office Visit Dermatology [address] [place] [address] Sheryl Pena PA-C [address] [place] [address] [place] [address] 12/16/2023 2:00 PM EDT Cardiac Studies Cardiology [address] [place] [address] [facility] 132 [facility] [place] [address] 03/30/2024 3:40 PM EDT Office Visit Family Medicine [address] [place] [phone] Verónica Benavides MD [address] [place] [address] [place] [address] Health Maintenance Due Date Last Done Comments [...] Additional history exists CKD PHOS USE SMARTSET 69566 02/08/202401/23, 08/07/2021, 11/09/2019, Additional history exists TSH 03/25/2024 03/25/2023, 07/0 10/2022, 10/28/2022, Additional history exists CKD HGB USE SMARTSET 28150 05/26/202405/26, 05/26/2023, 04/07/2023, Additional history exists Pneumococcal [...] Documents on File Type Date Recorded Patient Commercial Illustrator Expl anation Advance Directives and Living Will 08/10/2021 ADVANCE DIRECTIVE / LIVING WILL LIVING WILL Healthcare Agents on File Name Relationship Healthcare Agent Relationshi p Communication Josselyn Judd Adult Child Health Care Power of Attor nathalie Care Teams Project Controls Specialist Relationship Specialty Start Date End Date Verónica Benavides MD [address] [place] [address] [place] [phone] PCP - General Family Medicine 09/16/14 documented as of this encounter
--- OUTSIDE RECORDS SUMMARY | 2023-12-10 00:50 | External Medical Summary | Summary of Care ---
Author Name Unknown Organization [facility] Address [address] [place] [address] Phone [phone] Care Team Providers Care Rubber Belt Splicer Name Role Phone Verónica Benavides MD Primary Care Provide r Reason for Visit * Reason Onset Date Comments Appointment 06/16/2023 Encounter Details Date Type Department Care Team (Late st Contact Info) Description 06/16/2023 Telephone [facility], [facility] [facility] [address] [place] [address] [phone] Services, Scheduling [address] [place] [address] Appointment (//) Allergies Active Allergy Reactions Criticality Noted Date [...] in the morning. 0 08/08/2021 Active Nystatin 483179 UNIT/GM External Powder (Nystop)Indications: Lydia rash of [...] mL 1 05/04/2022 Active OneTouch Delica Plus [id number] TEST UP TO FOUR TIMES DAILY, E11.9 [...] Active Dulaglutide 0.75 MG/0.5ML Subcutaneous Solution Pen-injector ([facility]) Inject 0.75 mg under the skin once [...] mRNA, LNP-s, No Pre serve, 2-Dose Series ([facility]) 08/29/2021,10/23/2020,10/02/2020 Covid-19, Mrna, Lnp-s, Pf, B ivalent, 30 Mcg, IM, 12 yrs and above ([facility]) 08/02/2022 Pneumococcal Conjugate Vacc, 13 Valent (Prevnar) [...] Telephone Encounter - BETTY Epstein - 06/16/2023 9:15 AM EDT Tt request to schedule acute telemed today, schedueld today at 330pm, daughter aware and agreeable,tt of same to lesly and AP documented in this encounter Plan of Treatment Upcoming Encounters Date Type Department Care Team (Late st Contact Info) Description 06/16/2023 3:30 PM EDT Telemedicine [facility], [facility] [address] [facility] [place] [address] Abilio Colbert, DO [address] [facility] [place] [address] [address] [place] [address] 06/26/2023 5:30 PM EDT Home Visit [facility], [facility] 132 [facility] [place] [address] Destiny Schultz, POPPY 132 [facility] [place] [address] 07/07/2023 8:00 AM EST Office Visit Ophthalmology, [facility] 132 [facility] [place] [address] Romel Mcclelland, DO 16 [place] [address] 07/08/2023 1:45 PM EST Office Visit Urology, [facility] 132 [facility] [place] [address] Chandler Pena MD [address] [place] [address] [place] [address] 08/08/2023 1:00 PM EST Telemedicine Pharmacy, [address] [place] [address] [place] [address] 08/20/2023 1:30 PM EST Office Visit Cardiology, [facility] 132 [facility] [place] [address] Mariano Patel MD [address] [place] [address] 12/03/2023 3:00 PM EDT Office Visit Dermatology [address] [place] [address] Sheryl Pena PA-C [address] [place] [address] [place] [address] 12/16/2023 2:00 PM EDT Cardiac Studies Cardiology [address] [place] [address] Aleta Abel [facility] 132 [facility] [place] [address] 03/30/2024 3:40 PM EDT Office Visit Family Medicine [address] [place] [phone] Verónica Benavides MD [address] [place] [address] [place] [address] Health Maintenance Due Date Last Done Comments [...] Additional history exists CKD PHOS USE SMARTSET 26809 02/08/202401/23, 08/07/2021, 11/09/2019, Additional history exists TSH 03/25/2024 03/25/2023, 0710/2022, 10/28/2022, Additional history exists CKD HGB USE SMARTSET 17575 05/26/202405/26, 05/26/2023, 04/07/2023, Additional history exists Pneumococcal [...] Documents on File Type Date Recorded Patient Construction Superintendent Expl anation Advance Directives and Living Will 08/10/2021 ADVANCE DIRECTIVE / LIVING WILL LIVING WILL Healthcare Agents on File Name Relationship Healthcare Agent [facility] Communication Josselyn Judd Adult Child Health Care Power of Attor nathalie Care Teams Rubber Belt Splicer Relationship Specialty Start Date End Date Verónica Benavides MD [address] [place] [address] [place] [phone] PCP - General Family Medicine 1/23/15 documented as of this encounter
--- OUTSIDE RECORDS SUMMARY | 2023-12-10 00:50 | External Medical Summary | Summary of Care ---
Author Name Unknown Organization [facility] Address [address] [place] [address] Phone [phone] Care Team Providers Care Stroke Belt Sander Operator Name Role Phone Verónica Benavides MD Primary Care Provide r Reason for Visit * Reason Comments Dosage Adjustment Via Phone (anticoag Cl inic) Diabetes Follow-Up Encounter Details Date Type Department Care Team Description 06/13/2023 Telemedicine Pharmacy, [address] [place] [address] [place] [address] Type 2 diabetes mellitus with hemoglobin A1c goal of less than 8.0% ([facility])* Allergies Active Allergy Reactions Severity Noted Date Comments Adhesive Tape Medium 01/30/2022 Ibuprofen Hives 01/13/2012 Aspirin Hives,Rash 09/15/2000 Sulfamethoxazole-Trimetho prim Nausea/vomiting,Other (Please comment) 10/27/2020 Dizziness Ciprofloxacin Hcl 06/16/2019 Hoarse, dizzy,disoriented Morphine 09/21/2021 Blacked out Penicillins Hives,Rash 09/15/2000 Prednisone 12/30/2017 Weakness/memory changes/blurred vision documented as of this encounter (statuses as of 06/13/2023) Medications Medication Sig Dispensed Refills Start Date [...] in the morning. 0 08/08/2021 Active Nystatin 388434 UNIT/GM External Powder (Nystop)Indications: Lydia rash of [...] mL 1 05/04/2022 Active OneTouch Delica Plus [id number] TEST UP TO FOUR TIMES DAILY, E11.9 [...] XL)Indications:Non-i schemic cardiomyopathy (HCC),Coronary artery disease involving shinnecock coronary artery of shinnecock heart without angina pectoris,HTN, goal below 140/90 Take 1 Tablet by mouth every evening. 90 Tablet 11 02/27/2023 Active Spironolactone 25 MG Oral Tablet (Aldactone)Indicatio ns:Non-ischemic cardiomyopathy (HCC) Take 0.5 Tablets by mouth in the morning. 45 Tablet 3 02/27/2023 Active Dulaglutide 0.75 MG/0.5ML Subcutaneous Solution Pen-injector ([employer]) Inject 0.75 mg under the skin [...] long-term current use of insulin ([facility]),Type 2 diabetes mellitus with hemoglobin A1c goal of less than 8.0% ([facility]) TEST UP TO FOUR TIMES DAILY 400 [...] as of this encounter (statuses as of 06/13/2023) Active Problems Problem Noted Date Postmenopausal atrophic vaginitis 2022 Transient confusion 01/30/2023 Last Assessment & Plan: Patient has been progressively more confused over the last week despite treatment with Keflex 500 mg three times daily for urinary tract infection. Urine still is cloudy. It is possible that the UTI persists. Will do an infectious workup. -BMP, CBC, UA, stool studies Acute cystitis without hematuria 023 Last Assessment & Plan: Pt symptomatic with [...] ADLs 11/12/2022 Ventral hernia without obstruction or ga ngrene 08/07/2021 Trochanteric bursitis of right hip 07/10 History of recurrent UTI (urinary tract infection) 07/09/2021 Last Assessment & Plan: Currently on cipro for UTI. -continue mybetriq -urology appointment coming up in february -continue to monitor Morbid obesity with BMI of 45.0-49.9, ad ult 06/29/2021 ESBL E. 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 Last Assessment & Plan: [facility] Triage Call: Reviewed last C&S [...] right eye 03/07/2020 Gastroesophageal reflux disease without esophagitis 11/09/2019 Last Assessment & Plan: Stable -continue omeprazole Benign paroxysmal vertigo of both ears 1 09/08/2018 Lymphedema of both lower extremities Type 2 diabetes mellitus wit h stage 3a chronic kidney disease, without long-term current use of insulin 03/26/2017 Biventricular cardiac pacemaker in situ 09/04/2016 Aortic valve stenosis 07/23/2016 Overview: Interpretation Summary [...] change. 05/04/21 Heart failure, systolic, due to idiopath ic cardiomyopathy 06/05/2016 Non-ischemic cardiomyopathy 03/15/2016 Last Assessment & Plan: Continue synthroid Coronary artery disease invo lving shinnecock coronary artery of shinnecock heart without angina pectoris 07/03/2012 Overview: 60% diagonal per catheterization 03/2012 Last Assessment & Plan: Stable. No angina. -continue Toprol and diuretics. Was on lisinopril. Was taken off due to low BP. Allergy to ASA. Exertional dyspnea 03/31/2012 Aspirin allergy 03/31/2012 LBBB (left bundle branch block) 03/31/20 First degree atrioventricular block 02/2012 DYSLIPIDEMIA, GOAL LDL BELOW 100 009 Overview: Per Lipid Taxonomy. 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 stage 3a chronic kidney disease 07/03/2020 11/28/2020 Overview: Per CKD protocol Type 2 diabetes mellitus wit h diabetic peripheral angiopathy without gangrene 03/07/2020 11/28/2020 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/09/2019 11/09/19 20 Morbid obesity with BMI of 45.0-49.9, adult 01/2407/09/2019 Body mass index (BMI) of 45.0 to 49.9 in adult 1 02/23/2019 Overview: Per Obesity protocol #1 Asymptomatic bacteriuria 05/28/2018 018 Generalized weakness 05/27/2018 06/08/2018 Hypertensive heart disease w ith systolic heart failure and stage 3 chronic kidney disease 05/15/2018 07/06/2020 Overview: Per CKD protocol Hypertensive heart disease, benign w/chronic kidney disease stage 1-4 04/30/2018 05/15/2018 Trigger little finger of right hand 11/17/2017 04/30/2018 Carpal tunnel syndrome of right wrist 11/17/2017 04/30/2018 BMI 45.0-49.9, adult 03/26/2017 12/23/2017 Kidney disease, chronic, stage III (GFR 30-59 ml /min) 09/02/2016 07/06/2020 Overview: Per CKD protocol #1 Actinic keratosis 06/24/2016 04/30/2018 HTN, goal below 140/90 11/09/2012 3 Seronegative arthropathy of multiple sites 08/1904/30/2018 Near syncope 03/31/2012 07/28/2015 Adult body mass index 50.0-59.9 12/20/2010 03/26/2017 Obesity, morbid (more than 1 00 lbs over ideal weight or BMI > 40) 11/21/2009 05/15/2018 Overview: Per Obesity Taxonomy ICD-10 update of inactive term Ventral hernia, unspecified, without mention of obstruction or gangrene 10/13/2009 04/30/2018 ACTIVE CASE MANAGEMENT 07/26/2009 0 Overview: Marcela Dixon RN Arthritis, rheumatoid 06/30/2009 08/19/2012 Overview: Seronegative Type 2 diabetes mellitus wit h hemoglobin A1c goal of less than 7.0% 06/22/2009 02/21/2010 Overview: Per Diabetes Taxonomy. ICD-10 update of inactive term Polyarthropathy or polyarthritis of multiple sit es 12/30/2008 06/30/2009 Overview: ICD-10 update of inactive term DIVERTICULOSIS OF COLON 03/21/2004 04/30/20 18 Calculus of kidney 09/15/2003 04/30/2018 Hypercalcemia 01/24/2003 07/28/2015 Dyslipidemia, goal to be determined 04/05/2002 08/03/2009 Overview: Per Lipid Taxonomy. OBESITY, UNSPECIFIED 11/21/2009 Overview: Per Obesity Taxonomy Diverticulitis of colon 04/30/20 18 Esophageal reflux 04/30/2018 Type 2 diabetes mellitus wit h hemoglobin A1c goal of less than 7.0% 06/22/2009 Overview: Per Diabetes Taxonomy. ICD-10 update of inactive term Impaired glucose tolerance 04/30 documented as of this encounter (statuses as of 06/13/2023) Immunizations Name Administration Dates Next Due COVID-19 mRNA, LNP-s, No Pre serve, 2-Dose Series ([employer]) 08/29/2021,10/23/2020,10/02/2020 Covid-19, Mrna, Lnp-s, Pf, B ivalent, 30 Mcg, IM, 12 yrs and above ([employer]) 08/02/2022 Pneumococcal Conjugate Vacc, 13 Valent (Prevnar) [...] drink = 0.6 oz pur e alcohol) Sex Assigned at Date Recorded Not on file Job Start Date Occupation Industry Not on file Not on file Not on file documented as of this encounter Progress Notes * Kathe Ahmadi, formerly [facility] - 06/13/2023 12:29 PM EDT After connecting to the patient via telephone, [...] Current diabetic medications: Trulicity 0.75mg weekly eGFR 40 as of 02/07/23 Medication Injection Site: Abdomen Lifestyle: Diet: unchanged Glucose Review/SMBG: BG log not available, discussed below Hypoglycemia: Does your blood sugar go below 70 mg/dL? No Hyperglycemia symptoms present: none Recent Labs Units 02/11/23 1340 11/01/22 0618 01/11/22 0825 HEMOGLOBIN A1C - [facility] % 9.6* 7.6* 6.9* Recent Labs Units 05/26/23 1011 04/07/23 0648 03/31/23 0710 ESTIMATED GLOMERULAR FILTRATION RATE - [facility] mL/min 53* 57* 62 CREATININE - [facility] mg/dL 1.0 1.0 0.9 HYPERTENSION: Patient on ACEi/ARB: no, deferred to PCP BP Readings from Last 3 Encounters: 06/04/23 118/62 05/24/23 108/58 05/07/23 110/64 Blood pressure at goal: yes HYPERLIPIDEMIA: Patient is taking moderate or high intensity statin: no, deferred to PCP HEALTH MAINTENANCE REVIEW: Health Maintenance Due Topic Date Due Zoster Vaccines (1 of 2) Never done DXA Scan 04/02/2020 Depression Screening 05/24/2020 Diabetic Foot Exam 11/08/2020 Influenza Vaccine (FLU shot) (1) 04/25/2023 COVID-19 Vaccine (2022- season) 2023 ASSESSMENT & PLAN: ICD-10-CM 1. Type 2 diabetes mellitus with hemoglobin A1c goal of less than 8.0% (HCC) E11.9 Considerations: Chronic UTIs Works with [facility] BG Readings - Blood sugars remaining stable. Daughter reports readings 120- 150mg/dL. On higher end if eating something sweet, also had x3 UTIs the last few weeks where this occurred. Updated A1c not yet obtained. Daughter plans to have this drawn at next mobile lab visit. Medications - Reviewed current regimen, patient is adherent to regimen. Tolerating well and withoutissue. Diet, Exercise, Lifestyle - No significant lifestyle changes since last visit. Recently had a birthday. Celebrated with friends/family. Patient is agreeable to SMBG 1-2 time(s) daily. Patient aware to contact clinic if any hypoglycemia before next visit. MEDICATION CHANGES: no change Diabetic Medications: Trulicity 0.75mg weekly eGFR 54 as of 05/26/23 HEALTH MAINTENANCE INTERVENTIONS: Deferred, telephonic visit FOLLOW UP: Return to clinic in 8 weeks 08/08/2023 Kathe Ahmadi formerly [facility] Clinical Pharmacist - Unclaimed Property Officer Medication Therapy Management [facility] 06/13/2023, 12:29 PM documented in this encounter Plan of Treatment Upcoming Encounters Date Type Specialty Care Team Description 06/26/2023 Home Visit [facility] Destiny Schultz RN [address] [facility] [address] 07/07/2023 Office Visit Ophthalmology Romel Mcclelland, [address] [place] [address] 07/08/2023 Office Visit Urology Chandler Pena MD [address] [facility] [address] [address] 08/08/[address] [place] [address] 08/20/2023 Office Visit Cardiology Mariano Patel MD [address] [facility] [place] [address] 12/03/2023 Office Visit Dermatology Sheryl Pena PA-C [address] [place] [address] [place] [address] 12/16/2023 Cardiac Studies Cardiology [facility] [address] [facility] [place] [address] 03/30/2024 Office Visit Family Medicine Verónica Benavides MD [address] [place] [address] [place] [address] Health Maintenance Due Date Last Done Comments [...] Additional history exists CKD PHOS USE SMARTSET 61631 02/08/202401/23, 08/07/2021, 11/09/2019, Additional history exists TSH 03/25/2024 03/25/2023, 07/0 10/2022, 10/28/2022, Additional history exists CKD HGB USE SMARTSET 96338 05/26/202405/26, 05/26/2023, 04/07/2023, Additional history exists Pneumococcal [...] goal of less than 8.0% ([facility])- Primary documented in this encounter Advance Directives Documents on File Type Date Recorded 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 Adult Child Health Care Power of Attor nathalie Care Teams Stroke Belt Sander Operator Relationship Specialty Start Date End Date Verónica Benavides MD [address] [place] [address] [place] [phone] PCP - General Family Medicine 09/16/14 documented as of this encounter
[2023-12-10] MEDS ORDERED: ACETAMINOPHEN 325 MG TAB PO PRN (01:08)
[2023-12-10] MEDS ORDERED: GLUCOSE 40% GEL 15 GM TUBE PO PRN (01:08)
[2023-12-10] MEDS ORDERED: DEXTROSE 50% 50 ML SYRINGE IV PRN (01:08)
[2023-12-10] MEDS ORDERED: CARBOHYDRATES FOR HYPOGLYCEMIA PO PRN (01:08)
[2023-12-10] MEDS ORDERED: GLUCAGON FOR INJ 1 MG VIAL SQ PRN (01:08)
[2023-12-10] MEDS ORDERED: NITROGLYCERIN SL 0.4 MG/TAB TAB SL PRN (01:08)
[2023-12-10] MEDS ORDERED: BENZONATATE 100 MG CAPSULE PO PRN (01:08)
[2023-12-10] MEDS ORDERED: bisacodyL 5 MG TABEC PO PRN (01:08)
[2023-12-10] MEDS ORDERED: NON-FORMULARY MEDICATION (D-Mannose 500 mg Capsule) PO SCH (01:08)
[2023-12-10] MEDS ORDERED: GLYCERIN SCH (01:08)
[2023-12-10] MEDS ORDERED: POLYETHYLENE (MIRALAX) 17 GM PACK PO PRN (01:08)
[2023-12-10] MEDS ORDERED: GLUCOSE 10 TAB/TUBE PO PRN (01:08)
--- NOTE | 2023-12-10 02:18 | Emergency Department Note ---
Impression & Plan UTI due to extended-spectrum beta lactamase (ESBL) producing Escherichia coli, Generalized weakness, CHF (congestive heart failure) ED Provider Note NAME: NITIN PURCELL AGE: 88 SEX: Female INFORMANT: Patient and daughter ED PROVIDER(S): Asif Pride MD CHIEF COMPLAINT: UTI and weakness PLAN: Disposition: Admitted Outpatient prescription management: none Referral: None MEDICAL DECISION MAKING: Patient presented because of generalized weakness. Daughter also noted weight gain and some lower leg swelling. She was recommended for admission last week but they declined and wanted to treat with oral antibiotics. Unfortunately she has not extended-spectrum beta-lactamase producing E. coli. In vitro it was susceptible to Bactrim however this would not be an ideal in vivo treatment. Discussed with pharmacy and they agreed. Recommended IV ertapenem. Patient has had this before without problems. This was administered. Urinalysis today does not reveal any significant problems. CBC shows a mild anemia. Dehydration on chemistry panel. Troponin negative. Given the situation I discussed further management in the hospital. Patient was in agreement. Consultation was made with the [facility] service. Patient was evaluated in the ER admitted for further management Care/management discussed with: travel manager Level of care consideration(s): After review of the information above and other included data, I feel the patient requires escalation of care to admission. Triage Nursing notes: reviewed and agree them. Vital Signs: reviewed and remarkable for hypertension Additional History obtained from: Patient's daughter. She notes that her legs have been more swollen today and she has had a 3 pound weight gain Chronic Medical/Social Conditions affecting care: Frequent UTI, left CHF Prior/ Outside/ External records reviewed: none Differential Diagnosis: Infection, dehydration, metabolic abnormality, hypo/hyperglycemia, electrolyte disturbance, anemia, hypoxia, cardiac sources, intracerebral event, toxicologic, neurologic, as well as other pathologies. Diagnostics, independently interpreted by me: ECG: Twelve-lead ECG reveals an atrial sensed ventricular paced rhythm at 71 bpm. Cardiac Monitoring: Cardiac monitoring ordered by me: The patient was placed on continuous cardiac monitoring and observed. It revealed a n paced rhythm at 64 bpm Medical decision rules: none Imaging studies: Chest x-ray reveals pulmonary vascular congestion. HPI: 88 year old Female arrives for evaluation of weakness and UTI. Daughter is present and helps with history. She notes that the patient has had UTIs in the past and was diagnosed with 1 last week. She was following with her urologist, Dr. Pena. Daughter noted that they recommended admission for IV antibiotics but patient asked to try oral therapies first declining admission. Patient was placed on Bactrim. Her culture did reveal the presence of an ESBL E. coli. Daughter states the patient has had about a 3 pound weight gain. Patient feels some mild shortness of breath. She has generalized weakness. She also did note having some pain in the flanks but that has improved. Patient has had no abdominal pain. Pt denies headache, fevers, chills, diaphoresis, visual changes, neck pain, chest pain, breathing difficulties, nausea, vomiting, abdominal pain, melena, hematochezia, numbness, weakness, lymphadenopathy, rash, or other complaints. PAST MEDICAL HISTORY: See Below, CHF PAST SURGICAL HISTORY: See Below, SOCIAL HISTORY: See Below, retired HOME MEDICATIONS: See Below ALLERGIES: See Below VITALS: See Below PHYSICAL EXAMINATION: GENERAL: Awake, tired appearing, in no distress HENT: Normocephalic, atraumatic. Oropharynx unremarkable. EYES: Normal conjunctiva. Sclera non-icteric. NECK: Inspection normal. Non-tender. Supple. No nuchal rigidity. FROM. No masses. RESPIRATORY: Clear to auscultation. No wheezes. No rales. Normal respiratory effort. CARDIAC: Normal rate. Normal rhythm. No murmurs. No rubs. Extremities warm and well perfused. Pulses equal. No JVD. GI: Soft, non-distended. No tenderness to palpation. No rebound or guarding. No masses. MUSCULOSKELETAL: Atraumatic. Chest examination reveals no tenderness. The back is symmetrical on inspection without obvious abnormality. There is no CVA tenderness to palpation. No joint edema. LOWER EXTREMITIES: Calves are equal size bilaterally and non-tender. 3 edema. No discoloration. NEURO: Normal sensorium. No sensory or motor deficits noted. SKIN: No rash or jaundice noted. PROCEDURES: none CRITICAL CARE: none OBSERVATION NOTE: none Past Med/Surg History Medical History (Updated 12/10/23 @ 02:18 by Asif Pride MD) Acute on chronic heart failure with preserved ejection fraction (HFpEF) Dizziness Lactic acidemia Acute UTI CHF (congestive heart failure) UTI due to extended-spectrum beta lactamase (ESBL) producing Escherichia coli Hypoxia Pneumonia Diabetes mellitus, type II Lymphedema Pacemaker History of recurrent UTIs Arthritis LBBB (left bundle branch block) Vertigo Systolic heart failure Hypothyroidism NICM (nonischemic cardiomyopathy) Surgical History History of hysterectomy Hx of cholecystectomy History of knee replacement, total Family History Other Diabetes Heart disease Hypertension Social History Smoking Status: Never smoker Second Hand Exposure: No; Do You Dip or Chew Tobacco: No; Hx Alcohol Use: No Hx Substance Use: No Preferred Language: Italian Communication Ability: Effective Timber Trimmer Required: No Beliefs That Will Affect Care: None marital status: / Current Living Situation: Family Current Living Situation Comment: has 17/03 help at home current occupational status: retired How many Children do You have: 1 Other Information That Helps Us Care for You: No Feels Safe at Home: Yes Safety Concerns: Feels Safe At This Time Assistive Devices: Walker Allergies Allergies Allergy/AdvReac Type Severity Reaction Status Date / Time aspirin Allergy Intermediate Hives, Verified 12/09/23 21:28 shortness of breath ibuprofen Allergy Intermediate Rash, hives Verified 12/09/23 21:28 Penicillins Allergy Intermediate Rash, hives Verified 12/09/23 21:28 adhesive Allergy Mild Reddened Verified 12/09/23 21:28 and sore skin morphine AdvReac Severe BLACKED OUT Verified 12/09/23 21:28 ciprofloxacin AdvReac Intermediate DIZZINESS/H Verified 12/09/23 21:28 OARSE/DISOR IENTED sulfamethoxazole AdvReac Intermediate NAUSEA/VOMI Verified 12/09/23 21:28 [From Bactrim] TING/DIZZIN ESS trimethoprim [From Bactrim] AdvReac Intermediate NAUSEA/VOMI Verified 12/09/23 21:28 TING/DIZZIN ESS prednisone AdvReac Mild CONFUSION/BLURRED Verified 12/09/23 21:28 VISION/WEAKNESS Home Meds Home Medications Medication Instructions Recorded Confirmed d-mannose 500 mg capsule 1,000 mg PO AMPM 10/22/22 12/09/23 mirabegron 25 mg tablet,extended 25 mg PO QAM 10/22/22 12/09/23 release 24 hr (Myrbetriq) omeprazole 20 mg capsule,delayed 20 mg PO DAILYBB 10/22/22 12/09/23 release spironolactone 25 mg tablet 12.5 mg PO QAM 10/22/22 12/09/23 (Aldactone) torsemide 20 mg tablet See Rx Instructions .Route .COMPLEX 10/22/22 12/09/23 Lactobacillus acidophilus 10 10,000 mmu cells PO .QAFTERNOON 03/21/23 12/09/23 billion cell capsule (Probiotic) bisacodyl 5 mg tablet,delayed 10 mg PO DAILY PRN Constipation 03/21/23 12/09/23 release (Dulcolax (bisacodyl)) cholecalciferol (vitamin D3) 25 1,000 unit PO .ERNOON 03/21/23 12/09/23 mcg (1,000 unit) capsule clotrimazole 1 % topical cream 1 applic topical DAILY affected 03/21/23 12/09/23 area colchicine 0.6 mg tablet 0.6 mg PO BID PRN gout attacks 03/21/23 12/09/23 cyanocobalamin (vitamin B-12) 1,000 mcg PO .QAFTERNOON 03/21/23 12/09/23 1,000 mcg tablet (Vitamin B-12) dulaglutide 0.75 mg/0.5 mL 0.75 mg subcut WK 03/21/23 12/09/23 subcutaneous pen injector (Trulicity) glucosamine-chondroitin 500 mg-400 1 tab PO AMPM 03/21/23 12/09/23 mg tablet levothyroxine 88 mcg tablet 88 mcg PO DAILYBB 03/21/23 12/09/23 magnesium oxide 400 mg (241.3 mg 400 mg PO .QAFTERNOON 03/21/23 12/09/23 magnesium) tablet meclizine 25 mg tablet 25 mg PO TID PRN Dizziness 03/21/23 12/09/23 metoprolol succinate 25 mg 12.5 mg PO QPM 03/21/23 12/09/23 tablet,extended release 24 hr (Toprol XL) potassium chloride 20 mEq 20 meq PO AMHS 03/21/23 12/09/23 tablet,extended release(part/cryst) promethazine-DM 6.25 mg-15 mg/5 mL 5 ml PO QID PRN persistant cough 03/21/23 12/09/23 oral syrup benzonatate 100 mg capsule 100 mg PO TID PRN Cough 12/09/23 12/09/23 conjugated estrogens 0.625 mg/gram 1 applic vaginal HS 12/09/23 12/09/23 vaginal cream (Premarin) docusate sodium 100 mg capsule 300 mg PO BID 12/09/23 12/09/23 glycerin 0.5 % eye drops (Biotrue See Rx Instructions .Route .COMPLEX 12/09/23 12/09/23 Hydration Boost) metolazone 2.5 mg tablet 2.5 mg PO DAILY PRN FLUID 12/09/23 12/09/23 RETENTION/LAST RESORT nitrofurantoin 100 mg PO HS 12/09/23 12/09/23 monohydrate/macrocrystals 100 mg capsule (Macrobid) ondansetron HCl 4 mg tablet 4 mg PO Q6H PRN NAUSEA/VOMITING 12/09/23 12/09/23 sulfamethoxazole 800 1 tab PO BID 12/09/23 12/09/23 mg-trimethoprim 160 mg tablet Results & Data (ED) Vital Signs Vital Signs - 24 hr 12/09/23 16:36 12/09/23 20:58 12/09/23 20:58 Temperature 36.9 C Temperature Source Temporal Artery Scan Pulse Rate 70 Pulse Rate [Apical] 76 Respiratory Rate 16 18 Respiratory Effort / Characteristics Non-Labored Spontaneous Non-Labored Spontaneous Respiratory Depth Normal Normal Respiratory Pattern Regular Blood Pressure 143/70 H Blood Pressure [Left Arm] Blood Pressure Mean 94 Blood Pressure Mean [Left Arm] Blood Pressure Position [Left Arm] Pulse Oximetry 93 90 Oxygen Delivery Method Room Air Room Air Room Air Oxygen Flow Rate Sepsis Recent Fever Within 48 Hours No Sepsis New/Unexplained Change in Mental Status No Sepsis Action Taken by Nursing No Action Required 12/09/23 21:00 12/09/23 21:21 12/09/23 22:00 Temperature Temperature Source Pulse Rate 76 Pulse Rate [Apical] 66 63 Respiratory Rate 20 16 Respiratory Effort / Characteristics Non-Labored Spontaneous Non-Labored Spontaneous Respiratory Depth Normal Normal Respiratory Pattern Regular Regular Blood Pressure Blood Pressure [Left Arm] 140/66 138/62 Blood Pressure Mean Blood Pressure Mean [Left Arm] 90 87 Blood Pressure Position [Left Arm] Semi-fowlers Semi-fowlers Pulse Oximetry 93 98 Oxygen Delivery Method Nasal Cannula Nasal Cannula Oxygen Flow Rate 3 3 Sepsis Recent Fever Within 48 Hours Sepsis New/Unexplained Change in Mental Status Sepsis Action Taken by Nursing Laboratory Data 12/09/23 17:55 12/09/23 17:55 Lab Results 12/09/23 12/09/23 12/09/23 Range/Units 17:42 17:55 20:57 WBC 8.89 (4.8-10.8) K/ul RBC 2.68 L (4.20-5.40) M/uL Hgb 10.2 L (12.0-16.0) g/dl Hct 30.5 L (37.0-47.0) % MCV 113.8 H (80.0-100.0) fL MCH 38.1 H (25.0-34.0) pg MCHC 33.4 (32.0-36.0) g/dL RDW Std Deviation 57.6 H (36.4-46.3) fL RDW Coeff of Jon 13.6 (11.5-14.5) % Plt Count 360 (130-400) K/uL MPV 9.8 (9.4-12.4) fL Immature Gran % (Auto) 0.3 % Neut % (Auto) 51.2 % Lymph % (Auto) 36.7 % [place] % (Auto) 10.6 % Eos % (Auto) 0.8 % Baso % (Auto) 0.4 % Neut # (Auto) 4.55 (1.40-6.50) K/uL Lymph # (Auto) 3.26 (1.20-3.40) K/uL [place] # (Auto) 0.94 H (0.11-0.59) K/uL Eos # (Auto) 0.07 (0.00-0.50) K/uL Baso # (Auto) 0.04 (0.00-0.20) K/uL Immature Gran # (Auto) 0.03 (0.01-0.20) K/uL Absolute Nucleated RBC 0.07 (0.00-0.12) K/uL Nucleated RBC % (auto) 0.8 % Anisocytosis Present Macrocytosis Present Sodium 135 L (136-145) mmol/L Potassium 4.0 (3.5-5.1) mmol/L Chloride 99 (98-107) mmol/L Carbon Dioxide 28 (21-32) mmol/L Anion Gap 8 (3-11) BUN 26 H (6-23) mg/dl Creatinine 1.38 H (0.6-1.2) mg/dl Est Cr Clr Drug Dosing Not Reportable Est GFR ( Amer) 39.5 ml/min Est GFR (Non-Af Amer) 34.1 ml/min BUN/Creatinine Ratio 18.8 (10-20) Glucose 170 H (70-99(Fasting)) mg/dl Lactate 1.8 (0.4-2.0) mmol/L Calcium 9.8 (8.6-10.3) mg/dl Magnesium 2.1 (1.7-2.4) mg/dl Total Bilirubin 0.4 (0.2-1.0) mg/dl Direct Bilirubin 0.1 (0-0.2) mg/dl AST 13 (13-39) U/L ALT 7 (7-52) U/L Alkaline Phosphatase 105 H (34-104) U/L Troponin I High Sens 12.8 (0-14) pg/ml B-Natriuretic Peptide 472 H (0-100) pg/ml Total Protein 7.8 (6.0-8.3) gm/dl Albumin 4.2 (3.4-5.0) gm/dl Procalcitonin 0.03 (0-0.5) ng/ml Urine Color Yellow Urine Appearance Clear (Clear) Urine pH 6.0 (4.5-7.5) Ur Specific Mineral 1.010 (1.000-1.030) Urine Protein Negative (Negative) Urine Glucose (UA) Negative (Negative) Urine Ketones Negative (Negative) Urine Blood Negative (Negative) Urine Nitrite Negative (Negative) Urine Bilirubin Negative (Negative) Urine Urobilinogen Negative (Negative) Ur Leukocyte Esterase Negative (Negative) Administered Medications Ertapenem 1,000 mg/ Syringe 10 mls @ 2 mls/min IV Q24H BRENT Stop: 12/11/23 21:29 Last Admin: 12/09/23 22:07 Dose: 2 mls/min Documented By: LCD Imaging Data Radiologist's Impression: Chest X-Ray 12/09/23 16:39 SINGLE VIEW CHEST CLINICAL HISTORY: Sepsis. FINDINGS: An AP, portable, upright chest radiograph is compared to study dated 03/20/2023 and correlated with chest CT dated 10/22/2022. A 3-lead cardiac pacemaker is unchanged in position. The heart is enlarged but noting atherosclerotic calcification of the thoracic aorta. There is pulmonary vascular congestion. Chronic interstitial thickening is similar to previous. There is bibasilar scarring/atelectasis. No airspace consolidation or large pleural effusion is identified. No pneumothorax is seen. The skeletal structures are osteopenic. The bony thorax is grossly intact. Arthritic change is seen in the shoulders. Calcific tendinopathy is noted on the left. IMPRESSION: 1. Cardiomegaly and cardiac pacemaker with pulmonary vascular congestion. 2. No airspace consolidation or pleural effusion is identified. ACT 112: Negative or not required by law. Electronically signed by: Nigel Virgen M.D. 12/09/2023 7:08 PM Discharge Plan Visit Data Chief Complaint: Illness Stated Complaint: DIFFERENT STAIN OF E-COLI ED Provider: Asif Pride Discharge Problem: UTI due to extended-spectrum beta lactamase (ESBL) producing Escherichia coli, Generalized weakness, CHF (congestive heart failure) Patient Disposition: Admitted As Inpatient Discharge Instructions Interventions: ED Discharge Assessment Last Done: 12/10/23 00:38
[2023-12-10 05:49] LABS: Basophils # (auto) 0.03 K/uL (0.00-0.20); Basophils % (auto) 0.4 %; Eosinophils # (auto) 0.07 K/uL (0.00-0.50); Hematocrit (blood only) 26.2 % (37.0-47.0); Hemoglobin 8.4 g/dl (12.0-16.0); Immature Granulocytes # (auto) 0.02 K/uL (0.01-0.20); Immature Granulocytes % (auto) 0.3 %; Mean Corpuscular Hgb Conc 32.1 g/dL (32.0-36.0); Mean Corpuscular Volume 115.4 fL (80.0-100.0); Mean Platelet Volume 9.8 fL (9.4-12.4); Monocytes # (auto) 0.72 K/uL (0.11-0.59); Monocytes % (auto) 10.6 %; Neutrophils # (auto) 3.83 K/uL (1.40-6.50); Neutrophils % (auto) 56.7 %; Nucleated RBC # (auto) 0.05 K/uL (0.00-0.12); Nucleated RBC % (auto) 0.7 %; Platelet Count 271 K/uL (130-400); RDW Coefficient of Variation 13.6 % (11.5-14.5); RDW Standard Deviation 57.7 fL (36.4-46.3); Red Blood Count 2.27 M/uL (4.20-5.40); White Blood Count 6.77 K/ul (4.8-10.8)
[2023-12-10] MEDS: LEVOTHYROXINE SODIUM 88 MCG TABLET PO SCH (05:56)
[2023-12-10] MEDS: PANTOprazole 40 MG TAB PO SCH (05:56)
[2023-12-10 06:16] LABS: Calcium 9.3 mg/dl (8.6-10.3); Macrocytosis Present; Magnesium 2.1 mg/dl (1.7-2.4); Potassium 3.7 mmol/L (3.5-5.1)
[2023-12-10 06:21] LABS: BUN Creatinine Ratio 19.4 (10-20); Creatinine Clr Calc Pharmacy 39.1 ml/min; Est GFR (African American) 44.9 ml/min; Est GFR (Non-African American) 38.8 ml/min
[2023-12-10] MEDS: POTASSIUM CHLORIDE CRTAB 20 MEQ TABCR PO SCH (07:50)
[2023-12-10] MEDS: GLUCOSAMINE SULFATE 500 MG CAP PO SCH (07:50)
[2023-12-10] MEDS: SPIRONOLACTONE 12.5 MG TAB PO SCH (07:50)
[2023-12-10] MEDS: VIBEGRON 75 MG TAB PO SCH (07:51)
[2023-12-10] MEDS: DOCUSATE SODIUM 100 MG CAP PO SCH (07:51)
[2023-12-10] MEDS: HEPARIN SOD 5,000 UNIT/0.5 ML VIAL SQ SCH (07:53)
[2023-12-10] MEDS: TORSEMIDE 20 MG TAB PO SCH ×2 (07:53→12:42)
[2023-12-10] MEDS: CLOTRIMAZOLE 1% CR 15 GM TUBE TOP SCH (08:01)
--- NOTE | 2023-12-10 08:16 | Hospitalist Progress Note ---
Date of Service December 10, 2023 Assessment & Plan (1) UTI due to extended-spectrum beta lactamase (ESBL) producing Escherichia coli: Plan Pt is an 88yoF with PMHx significant for DM type II, recurrent UTIs, hypothyroidism, hyperlipidemia, CKD 3, chronic systolic congestive heart failure, exertional dyspnea, first-degree AV block, left bundle-branch block, CAD, hypertension, lymphedema of both lower extremities, aspirin allergy, ,History of benign positional vertigo, history of severe aortic stenosis, history of ischemic cardiomyopathy, s/p biventricular cardiac pacemaker presenting with weakness and ESBL UTI. Patient was diagnosed with UTI on December 02 with ESBL and completed a course of Bactrim to which it was sensitive. ESBL UTI History of recurrent UTIs Diagnosed with ESBL UTI on December 02, completed a course of Bactrim to which it was sensitive. UA on admission with no current signs of infection, reflex urine culture not obtained as a result Blood Cx x 2 sets currently pending Was started on Invanz on admission, continue and follow Blood Cx results Consider Urology input Weakness Ambulatory dysfunction Patient general ambulates with walker But currently is weak to ambulate Likely in setting of above However pt also notes that her lymphedema could be playing a role PT/OT- appreciate recs Atrial tachycardia S/p biventricular cardiac pacemaker Pt with pacemaker, noted runs of atrial arrhythmia on telemetry on 12/09 Pacemaker interrogated Cardiology consulted, appreciate recs -pacemaker readjusted -metoprolol succinate dose increased from 12.5mg qpm to 25mg qpm Continue with telemetry monitoring Chronic systolic and diastolic CHF Severe aortic stenosis Dilated cardiomyopathy EF was 30% but now improved to 55% in February 2023 echo S/p biventricular cardiac pacemaker On metoprolol succinate, torsemide and Aldactone. Potassium supplements Cardiology consulted, appreciate recs -continue with current home diuretic/BB regimen Continue to monitor for volume overload Chronic lower extremity lymphedema Per Daughter, slightly worse Dopplers with no noted DVT Will monitor STEVE on CKD stage III Baseline creatinine ~ 1 Presented creatinine 1.3 Improving If worsening will hold the diuretics and other nephrotoxic meds as able Monitor with AM labs Acute on Chronic anemia Hemoglobin 10.2 on admission, around baseline hgb dropped to 8.4 on 12/09 Will workup further with anemia panel (iron panel, b12 and folate levels) Monitor H/H transfuse if hgb <7 DMII [id number] of 6.7 ISS Hold home meds, resume on discharge Hypertension On metoprolol and diuretics Currently controlled, continue to monitor Hypothyroidism On Synthroid, continue Constipation continue stool softeners Diet: DMII/Low sodium DVT prophylaxis: Heparin subcu CODE STATUS: DNR per admitting provider's discussion with the daughter Dispo: PT/OT ordered, appreciate recs Admission and Anticipated Discharge Date Admission Date: December 09, 2023 Subjective Pt was seen sitting in chair at bedside. Stated that she wanted hot chocolate rather than coffee. Denied chest pain or SOB. Did note that she flet like her legs were "getting in the way of moving". Daughter not at bedside but she noted she would be by later. Review of Systems Review of Systems: All systems reviewed & are unremarkable except as noted in Subjective Physical Exam Physical Exam: General: Alert, oriented. No acute distress Psych: Appropriate mood and affect Neuro: difficulty with movements HEENT: NC/AT CV: RRR Resp: Breath sounds decreased bilaterally, no increased effort of breathing. Abdomen: Soft, nontender Extremities: edema in arms and lower extremities bilaterally Results & Data Results & Data Vital Signs (Past 12 Hours) Vital Signs Temp Pulse Pulse Resp BP Pulse Ox O2 Del Method 12/10/23 07:38 65 92 Nasal Cannula 12/10/23 07:36 37.1 C 66 16 105/54 L 84 L Room Air 12/10/23 01:28 64 12/10/23 01:15 Nasal Cannula 12/10/23 01:08 36.7 C 65 20 145/76 H 94 Nasal Cannula 12/09/23 22:00 63 16 138/62 98 Nasal Cannula 12/09/23 21:21 66 20 140/66 93 Nasal Cannula 12/09/23 21:00 76 12/09/23 20:58 90 Room Air 12/09/23 20:58 76 18 Room Air O2 Flow Rate 12/10/23 07:38 3 12/10/23 07:36 12/10/23 01:28 12/10/23 01:15 2 12/10/23 01:08 2 12/09/23 22:00 3 12/09/23 21:21 3 12/09/23 21:00 12/09/23 20:58 12/09/23 20:58
[2023-12-10 08:43] LABS: Estimated Average Glucose 146 mg/dl; Hemoglobin A1C 6.7 % (4.5-5.6)
[2023-12-10] MEDS ORDERED: DOCUSATE SODIUM 100 MG CAP PO SCH (09:00)
--- NOTE | 2023-12-10 09:07 | Ultrasound Report ---
ULTRASOUND BILATERAL LOWER EXTREMITY VENOUS CLINICAL HISTORY: Lower extremity edema. COMPARISON STUDY: Bilateral lower extremity venous ultrasound dated 10/24/2022. TECHNIQUE: Real-time, grayscale, and color Doppler sonography of the deep veins of the right and left lower extremity was performed from the inguinal crease to the calf. Compression and augmentation wer e utilized. FINDINGS: There is no sonographic evidence of deep venous thrombosis identified in the right or left lower extremity. The common femoral, superficial femoral, and popliteal veins are patent and normally compressible bilaterally. The greater saphenous vein and the profunda femoris vein at the junction w ith the common femoral vein are clear in both legs. The visualized calf veins are patent bilaterally. IMPRESSION: There is no sonographic evidence of deep venous thrombosis identified in the right or lef t lower extremity. ACT 112: Negative or not required by law. Electronically signed by: Nigel Virgen M.D. 12/10/2023 9:05 AM
[2023-12-10] MEDS: INSULIN ASPART PER UNIT CHARGE SC SCH (09:35)
--- NOTE | 2023-12-10 10:39 | Electrocardiogram Report ---
Test Reason : Blood Pressure : / mmHG Vent. Rate : 071 BPM Atrial Rate : 071 BPM P-R Int : 174 ms QRS Dur : 160 ms QT Int : 460 ms P-R-T Axes : 010 -53 109 degrees QTc Int : 499 ms Atrial-sensed ventricular-paced rhythm Abnormal ECG When compared with ECG of 20-MAR-2023 19:02, Vent. rate has decreased BY 8 BPM Confirmed by Bryan Castaneda ([id number]) on 12/10/2023 10:39:34 AM Referred By: REFERRED SELF Confirmed By:Tony Castaneda
--- NOTE | 2023-12-10 11:32 | Cardiology Consultation ---
Date of Consultation December 10, 2023 Assessment & Plan (1) Severe aortic stenosis: (2) Chronic combined systolic (congestive) and diastolic (congestive) heart failure: (3) UTI (urinary tract infection): Plan IMPRESSION: Medically complex 88-year-old female with severe aortic stenosis and chronic combined systolic and diastolic CHF. Admitted for weakness and generalized malaise. Positive for ESBL UTI. Blood cultures pending. Episode of atrial tach on telemetry. No evidence of A-fib. PLAN: UTI: ESBL UTI. -Management per primary service, on Invanz. Severe aortic valve stenosis Severe aortic stenosis. Currently asymptomatic. -Per Dr. Patel (09/2023)-- Due to extremely limited functional capacity and in need for 24x7 care she was deemed NOT a candidate for percutaneous or surgical therapies. Chronic combined systolic and diastolic heart failure: NYHA class 3. LVEF as low as 30%, improved to 55% on recent echo at [facility], 02/2023 Status post biventricular pacemaker, no AICD function Volume status appears well compensated. No evidence of heart failure on exam. -Continue home dose torsemide 60 mg in the morning and 40 mg in the afternoon -Continue goal-directed medical therapy with metoprolol succinate and spironolactone. Atrial tachycardia Atrial tachycardia up to the 120s on telemetry. No evidence of atrial fibrillation. Patient was asymptomatic. -Treat underlying illness and maintain electrolyte balance with a potassium goal of 4.0 and mag goal of 2.0. -Patient normally maintains on metoprolol succinate 25 mg daily, will increase to suppress further episodes of atrial tach. Case discussed with Dr. Boucher. Further recommendations pending assessment. I spent a total of 40 minutes on the date of service in preparation, delivery, and documentation of the care provided to the patient excluding any time spent in the performance of separately billed services. GASTON Nicole Department of Cardiology, [facility] This chart was completed in part utilizing Speech Voice Recognition Software. Grammatical errors, random word insertions, pronoun errors, and incomplete sentences are an occasional consequence of this system due to software limitations, ambient noise, and hardware issues. Any formal questions or concerns about the content, text, or information contained within the body of this dictation should be directly addressed to the provider for clarification. Supervising Physician Co-Signing Physician Notes Patient was seen and personally examined. Full assessment and plan as well outlined above. Care and management discussed with advanced provider and personally endorsed 88-year-old female with severe aortic stenosis admitted with complaints of fatigue. Patient very vague historian. Exam does not suggest significant volume overload. Transient atrial tachycardia (not atrial fibrillation) noted in hospital with atrial tracking via pacemaker. Device readjusted, continue, usual dose torsemide Plan as above Treat urinary tract infection History of Present Illness Reason for Consultation: CHF/Atrial tach Requesting Physician: Leonarda Archibald Attending Physician: Elizabeth Matt MD History of Present Illness Medically complex 88-year-old female who presented to [facility] emergency department last evening due to weakness. Diagnosed with a UTI on 12/03/2023. Initially treated with oral antibiotics as an outpatient. Symptoms worsened and patient became weak and nauseated. Daughter noted a 3 pound weight gain and increase in her lower extremity lymphedema. Patient presented to the ED for further care. She has known chronic combined systolic and diastolic CHF with most recent EF being approximately 50% on echo 02/2023. She also has known severe aortic stenosis and was evaluated by valve clinic 09/2023. velocity: 412 cm/s Due to extremely limited functional capacity and in need for 24X7 care she was deemed NOT a candidate for percutaneous or surgical therapies. Blood work showing anemia 10.2>>8.4. Scr 1.3>>1.24. BNP 472. Telemetry: Paced with underlying sinus rhythm in the 60s. Episode of atrial tach up to the 120s. Patient was asymptomatic. Upon entrance into the room patient resting comfortably in bed. Head of bed flat. Denies chest pain or shortness of breath. No palpitations or lightheadedness. No orthopnea or PND. Minimal lower extremity lymphedema noted. Denies abdominal bloating. Primary Transferrer: Dr. Heredia Past medical history: 1.Severe aortic stenosis, not a candidate for percutaneous or surgical intervention per Dr. Patel 09/2023 2.Chronic systolic and diastolic CHF a.Dilated cardiomyopathy with an LVEF of 30% with interval improvement to 50% 3.Status post biventricular pacemaker, no a ICD capability 4.Mild nonobstructive CAD cardiac catheterization, 2018 5.Chronic lymphedema 6.Obesity 7.Generalized weakens Allergies Allergy/AdvReac Type Severity Reaction Status Date / Time aspirin Allergy Intermediate Hives, Verified 12/09/23 21:28 shortness of breath ibuprofen Allergy Intermediate Rash, hives Verified 12/09/23 21:28 Penicillins Allergy Intermediate Rash, hives Verified 12/09/23 21:28 adhesive Allergy Mild Reddened Verified 12/09/23 21:28 and sore skin morphine AdvReac Severe BLACKED OUT Verified 12/09/23 21:28 ciprofloxacin AdvReac Intermediate DIZZINESS/H Verified 12/09/23 21:28 OARSE/DISOR IENTED sulfamethoxazole AdvReac Intermediate NAUSEA/VOMI Verified 12/09/23 21:28 [From Bactrim] TING/DIZZIN ESS trimethoprim [From Bactrim] AdvReac Intermediate NAUSEA/VOMI Verified 12/09/23 21:28 TING/DIZZIN ESS prednisone AdvReac Mild CONFUSION/BLURRED Verified 12/09/23 21:28 VISION/WEAKNESS Home Medications Medication Instructions Recorded Confirmed Type d-mannose 500 mg capsule 1,000 mg PO AMPM 10/22/22 12/09/23 History mirabegron 25 mg tablet,extended 25 mg PO QAM 10/22/22 12/09/23 History release 24 hr (Myrbetriq) omeprazole 20 mg capsule,delayed 20 mg PO DAILYBB 10/22/22 12/09/23 History release spironolactone 25 mg tablet 12.5 mg PO QAM 10/22/22 12/09/23 History (Aldactone) torsemide 20 mg tablet See Rx Instructions .Route .COMPLEX 10/22/22 12/09/23 History Lactobacillus acidophilus 10 10,000 mmu cells PO .QAFTERNOON 03/21/23 12/09/23 History billion cell capsule (Probiotic) bisacodyl 5 mg tablet,delayed 10 mg PO DAILY PRN Constipation 03/21/23 12/09/23 History release (Dulcolax (bisacodyl)) cholecalciferol (vitamin D3) 25 1,000 unit PO .QAFTERNOON 03/21/23 12/09/23 History mcg (1,000 unit) capsule clotrimazole 1 % topical cream 1 applic topical DAILY affected 03/21/23 12/09/23 History area colchicine 0.6 mg tablet 0.6 mg PO BID PRN gout attacks 03/21/23 12/09/23 History cyanocobalamin (vitamin B-12) 1,000 mcg PO .QAFTERNOON 03/21/23 12/09/23 History 1,000 mcg tablet (Vitamin B-12) dulaglutide 0.75 mg/0.5 mL 0.75 mg subcut WK 03/21/23 12/09/23 History subcutaneous pen injector (Trulicity) glucosamine-chondroitin 500 mg-400 1 tab PO AMPM 03/21/23 12/09/23 History mg tablet levothyroxine 88 mcg tablet 88 mcg PO DAILYBB 03/21/23 12/09/23 History magnesium oxide 400 mg (241.3 mg 400 mg PO .QAFTERNOON 03/21/23 12/09/23 History magnesium) tablet meclizine 25 mg tablet 25 mg PO TID PRN Dizziness 03/21/23 12/09/23 History metoprolol succinate 25 mg 12.5 mg PO QPM 03/21/23 12/09/23 History tablet,extended release 24 hr (Toprol XL) potassium chloride 20 mEq 20 meq PO AMHS 03/21/23 12/09/23 History tablet,extended release(part/cryst) promethazine-DM 6.25 mg-15 mg/5 mL 5 ml PO QID PRN persistant cough 03/21/23 12/09/23 History oral syrup benzonatate 100 mg capsule 100 mg PO TID PRN Cough 12/09/23 12/09/23 History conjugated estrogens 0.625 mg/gram 1 applic vaginal HS 12/09/23 12/09/23 History vaginal cream (Premarin) docusate sodium 100 mg capsule 100 mg PO BID 12/09/23 12/10/23 History glycerin 0.5 % eye drops (Biotrue See Rx Instructions .Route .COMPLEX 12/09/23 12/09/23 History Hydration Boost) metolazone 2.5 mg tablet 2.5 mg PO DAILY PRN FLUID 12/09/23 12/09/23 History RETENTION/LAST RESORT nitrofurantoin 100 mg PO HS 12/09/23 12/09/23 History monohydrate/macrocrystals 100 mg capsule (Macrobid) ondansetron HCl 4 mg tablet 4 mg PO Q6H PRN NAUSEA/VOMITING 12/09/23 12/09/23 History sulfamethoxazole 800 1 tab PO BID 12/09/23 12/09/23 History mg-trimethoprim 160 mg tablet Patient History Medical History (Updated 12/10/23 @ 12:26 by GASTON Curiel) Acute on chronic heart failure with preserved ejection fraction (HFpEF) Dizziness Lactic acidemia Acute UTI CHF (congestive heart failure) UTI due to extended-spectrum beta lactamase (ESBL) producing Escherichia coli Hypoxia Pneumonia Diabetes mellitus, type II Lymphedema Pacemaker History of recurrent UTIs Arthritis LBBB (left bundle branch block) Vertigo Systolic heart failure Hypothyroidism NICM (nonischemic cardiomyopathy) Surgical History History of hysterectomy Hx of cholecystectomy History of knee replacement, total Family History Other Diabetes Heart disease Hypertension Social History Smoking Status: Never smoker Second Hand Exposure: No; Do You Dip or Chew Tobacco: No; Hx Alcohol Use: No Hx Substance Use: No Preferred Language: Syrian Communication Ability: Effective Ota Required: No Beliefs That Will Affect Care: None marital status: / Current Living Situation: Family Current Living Situation Comment: has 17/03 help at home current occupational status: retired How many Children do You have: 1 Other Information That Helps Us Care for You: No Feels Safe at Home: Yes Safety Concerns: Feels Safe At This Time Assistive Devices: Walker Review of Systems Review of Systems: All systems reviewed & are unremarkable except as noted in HPI & below Physical Exam Physical Exam: General: No acute distress. A+Ox3. HEENT: Normocephalic. Atraumatic. Conjunctiva and sclera clear. NECK: No carotid bruits. No JVD. Carotid upstrokes are brisk. Heart: RRR. S1+, diminished S2. +3/6 systolic murmur Lungs: Clear to auscultation. No wheezes, rhonchi, rales. Abdomen: Normal bowel sounds. Soft. Nontender. No masses or organomegaly. No abdominal bruits. Extremities: No pitting edema/chronic lymphedema. No clubbing or cyanosis. Pulses: radial=2/4, posterior tibial=2/4, dorsalis pedis = 2/4. NEURO: No focal deficits. PSYCH: Normal Results & Data Vital Signs (Past 12 Hours) Vital Signs Temp Pulse Pulse Resp BP Pulse Ox O2 Del Method 12/10/23 11:10 36.6 C 67 16 112/69 92 Room Air 12/10/23 07:38 65 92 Nasal Cannula 12/10/23 07:36 37.1 C 66 16 105/54 L 84 L Room Air 12/10/23 01:28 64 12/10/23 01:15 Nasal Cannula 12/10/23 01:08 36.7 C 65 20 145/76 H 94 Nasal Cannula O2 Flow Rate 12/10/23 11:10 12/10/23 07:38 3 12/10/23 07:36 12/10/23 01:28 12/10/23 01:15 2 12/10/23 01:08 2 Laboratory Results Cardiac Enzymes 12/09/23 12/09/23 Range/Units 17:55 20:57 AST 13 (13-39) U/L Troponin I High Sens 12.8 (0-14) pg/ml B-Natriuretic Peptide 472 H (0-100) pg/ml Coagulation 12/09/23 Range/Units 20:57 B-Natriuretic Peptide 472 H (0-100) pg/ml CBC 12/09/23 12/10/23 Range/Units 17:55 04:56 WBC 8.89 6.77 (4.8-10.8) K/ul RBC 2.68 L 2.27 L (4.20-5.40) M/uL Hgb 10.2 L 8.4 L (12.0-16.0) g/dl Hct 30.5 L 26.2 L (37.0-47.0) % Plt Count 360 271 (130-400) K/uL Neut # (Auto) 4.55 3.83 (1.40-6.50) K/uL Lymph # (Auto) 3.26 2.10 (1.20-3.40) K/uL Knott # (Auto) 0.94 H 0.72 H (0.11-0.59) K/uL Eos # (Auto) 0.07 0.07 (0.00-0.50) K/uL Baso # (Auto) 0.04 0.03 (0.00-0.20) K/uL Comprehensive Metabolic Panel 12/09/23 12/10/23 Range/Units 17:55 04:56 Sodium 135 L 138 (136-145) mmol/L Potassium 4.0 3.7 (3.5-5.1) mmol/L Chloride 99 102 (98-107) mmol/L Carbon Dioxide 28 30 (21-32) mmol/L BUN 26 H 24 H (6-23) mg/dl Creatinine 1.38 H 1.24 H (0.6-1.2) mg/dl Glucose 170 H 134 H (70-99(Fasting)) mg/dl Calcium 9.8 9.3 (8.6-10.3) mg/dl Direct Bilirubin 0.1 (0-0.2) mg/dl AST 13 (13-39) U/L ALT 7 (7-52) U/L Alkaline Phosphatase 105 H (34-104) U/L Total Protein 7.8 (6.0-8.3) gm/dl Albumin 4.2 (3.4-5.0) gm/dl Intake and Output 12/09/23 12/10/23 12/10/23 22:59 06:59 14:59 Output Total 0 / 0 Balance 0 / 0 Output: Urine 0 / 0 Other: Other Intake Source sips # Unmeasured Voids 1 Weight 111 kg 112 kg Weight [facility] (3) UTI (urinary tract infection) Hematuria presence: without hematuria Urinary tract infection type: site unspecified Qualified Code(s): N39.0 - Urinary tract infection, site not specified
[2023-12-10] MEDS: ADVANCED PROBIOTIC 625 MG CAPSULE PO SCH (12:42)
[2023-12-10] MEDS: CYANOCOBALAMIN (B-12) 500 MCG TABLET PO SCH (12:43)
[2023-12-10] MEDS: CHOLECALCIFEROL 25 MCG (1000 UNITS) TAB PO SCH (12:43)
[2023-12-10] MEDS: MAGNESIUM OXIDE 400 MG TAB PO SCH (12:43)
[2023-12-10] MEDS: PREMARIN VAG CRM 14 APPLN/30 GM TUBE PV SCH (20:32)
[2023-12-10] MEDS: METOPROLOL SUCC 25MG EXT REL TAB PO SCH (20:33)
[2023-12-10] MEDS ORDERED: METOPROLOL SUCC 25MG EXT REL TAB PO SCH (21:00)
[2023-12-11 04:15] LABS: Hemoglobin 8.3 g/dl (12.0-16.0); Mean Corpuscular Hemoglobin 36.9 pg (25.0-34.0); Mean Corpuscular Hgb Conc 31.9 g/dL (32.0-36.0); Mean Corpuscular Volume 115.6 fL (80.0-100.0); Mean Platelet Volume 9.4 fL (9.4-12.4); Nucleated RBC # (auto) 0.07 K/uL (0.00-0.12); Nucleated RBC % (auto) 1.2 %; Platelet Count 266 K/uL (130-400); RDW Coefficient of Variation 13.6 % (11.5-14.5); RDW Standard Deviation 57.5 fL (36.4-46.3); Red Blood Count 2.25 M/uL (4.20-5.40)
[2023-12-11 04:38] LABS: Albumin Globulin Ratio 1.2 (0.9-2); Albumin Level 3.4 gm/dl (3.4-5.0); Bilirubin,Total 0.3 mg/dl (0.2-1.0); Calcium 9.3 mg/dl (8.6-10.3); Creatinine Clr Calc Pharmacy 38.8 ml/min; Est GFR (African American) 44.5 ml/min; Est GFR (Non-African American) 38.4 ml/min; Globulin 2.8 gm/dl (2.5-4.0); Phosphorus 3.8 mg/dl (2.5-4.9); Total Protein 6.2 gm/dl (6.0-8.3)
[2023-12-11 05:01] LABS: Ferritin 175.4 ng/ml (8-388)
[2023-12-11 05:45] LABS: Folate (Folic Acid),Ser orPlas 7.47 ng/ml (>5.38)
[2023-12-11] MEDS: MECLIZINE HCL 25 MG TAB PO PRN (08:19)
--- NOTE | 2023-12-11 12:41 | Hospitalist Progress Note ---
Date of Service December 11, 2023 Assessment & Plan (1) UTI due to extended-spectrum beta lactamase (ESBL) producing Escherichia coli: Plan Pt is an 88yoF with PMHx significant for DM type II, recurrent UTIs, hypothyroidism, hyperlipidemia, CKD 3, chronic systolic congestive heart failure, exertional dyspnea, first-degree AV block, left bundle-branch block, CAD, hypertension, lymphedema of both lower extremities, aspirin allergy, ,History of benign positional vertigo, history of severe aortic stenosis, history of ischemic cardiomyopathy, s/p biventricular cardiac pacemaker presenting with weakness and ESBL UTI. Patient was diagnosed with UTI on December 02 with ESBL and completed a course of Bactrim to which it was sensitive. ESBL UTI History of recurrent UTIs Diagnosed with ESBL UTI on December 02, completed a course of Bactrim to which it was sensitive. UA on admission with no current signs of infection, reflex urine culture not obtained as a result Blood Cx x 2 sets NGTD Was started on Invanz on admission, continue and follow Blood Cx results Consider Urology input, pt follows with Urology outpt Weakness Ambulatory dysfunction Patient general ambulates with walker But currently is weak, difficulty with ambulation Likely in setting of above However pt also notes that her lymphedema could be playing a role PT/OT- appreciate recs Atrial tachycardia S/p biventricular cardiac pacemaker Pt with pacemaker, noted runs of atrial arrhythmia on telemetry on 12/09 Pacemaker interrogated Cardiology consulted, appreciate recs -pacemaker readjusted -metoprolol succinate dose increased from 12.5mg qpm to 25mg qpm Continue with telemetry monitoring Chronic systolic and diastolic CHF Severe aortic stenosis Dilated cardiomyopathy EF was 30% but now improved to 55% in February 2023 echo S/p biventricular cardiac pacemaker On metoprolol succinate, torsemide and Aldactone. Potassium supplements Cardiology consulted, appreciate recs -continue with current home diuretic/BB regimen Continue to monitor for volume overload Chronic lower extremity lymphedema Per Daughter, slightly worse Dopplers with no noted DVT Will monitor STEVE on CKD stage III Baseline creatinine ~ 1 Presented creatinine 1.3 Improving If worsening will hold the diuretics and other nephrotoxic meds as able Monitor with AM labs Acute on Chronic anemia Hemoglobin 10.2 on admission, around baseline hgb dropped to 8.4 on 12/09 Will workup further with anemia panel (iron panel, b12 and folate levels) Monitor H/H transfuse if hgb <7 DMII [id number] of 6.7 ISS Hold home meds, resume on discharge Hypertension On metoprolol and diuretics Currently controlled, continue to monitor Hypothyroidism On Synthroid, continue Constipation continue stool softeners Diet: DMII/Low sodium DVT prophylaxis: Heparin subcu CODE STATUS: DNR per admitting provider's discussion with the daughter Dispo: PT/OT ordered, appreciate recs Admission and Anticipated Discharge Date Admission Date: December 09, 2023 Subjective Pt was seen sitting in chair at bedside. noted that she was feeling better. Was thinking of going walking around the hospital. Daughter called and updated. All questions answered to the best of ability. Review of Systems Review of Systems: All systems reviewed & are unremarkable except as noted in Subjective Physical Exam Physical Exam: General: Alert, oriented. No acute distress Psych: Appropriate mood and affect Neuro: difficulty with movements HEENT: NC/AT CV: RRR Resp: Breath sounds decreased bilaterally, no increased effort of breathing. Abdomen: Soft, nontender Extremities: edema in arms and lower extremities bilaterally Results & Data Results & Data Vital Signs (Past 12 Hours) Vital Signs Temp Pulse Pulse Pulse Resp BP Pulse Ox 12/11/23 11:08 36.3 C L 64 16 129/69 91 12/11/23 08:58 60 12/11/23 07:40 36.8 C 60 18 143/69 H 91 12/11/23 03:57 36.6 C 60 18 119/74 92 O2 Del Method 12/11/23 11:08 Room Air 12/11/23 08:58 12/11/23 07:40 Room Air 12/11/23 03:57 Room Air
[2023-12-12 03:59] LABS: Hematocrit (blood only) 26.9 % (37.0-47.0); Mean Corpuscular Hemoglobin 38.1 pg (25.0-34.0); Mean Corpuscular Hgb Conc 33.5 g/dL (32.0-36.0); Mean Platelet Volume 9.6 fL (9.4-12.4); Nucleated RBC # (auto) 0.08 K/uL (0.00-0.12); Nucleated RBC % (auto) 1.3 %; Platelet Count 299 K/uL (130-400); RDW Coefficient of Variation 13.9 % (11.5-14.5); RDW Standard Deviation 57.2 fL (36.4-46.3); Red Blood Count 2.36 M/uL (4.20-5.40); White Blood Count 6.06 K/ul (4.8-10.8)
[2023-12-12 04:17] LABS: Albumin Globulin Ratio 1.2 (0.9-2); Albumin Level 3.6 gm/dl (3.4-5.0); BUN Creatinine Ratio 18.8 (10-20); Bilirubin,Total 0.4 mg/dl (0.2-1.0); Calcium 9.7 mg/dl (8.6-10.3); Creatinine Clr Calc Pharmacy 33.6 ml/min; Est GFR (African American) 37.5 ml/min; Est GFR (Non-African American) 32.3 ml/min; Magnesium 2.2 mg/dl (1.7-2.4); Phosphorus 3.9 mg/dl (2.5-4.9); Potassium 4.4 mmol/L (3.5-5.1); Total Protein 6.6 gm/dl (6.0-8.3)
--- NOTE | 2023-12-12 15:03 | Hospitalist Progress Note ---
Date of Service December 12, 2023 Assessment & Plan (1) UTI due to extended-spectrum beta lactamase (ESBL) producing Escherichia coli: Plan Pt is an 88yoF with PMHx significant for DM type II, recurrent UTIs, hypothyroidism, hyperlipidemia, CKD 3, chronic systolic congestive heart failure, exertional dyspnea, first-degree AV block, left bundle-branch block, CAD, hypertension, lymphedema of both lower extremities, aspirin allergy, ,History of benign positional vertigo, history of severe aortic stenosis, history of ischemic cardiomyopathy, s/p biventricular cardiac pacemaker presenting with weakness and ESBL UTI. Patient was diagnosed with UTI on December 02 with ESBL and completed a course of Bactrim to which it was sensitive. ESBL UTI History of recurrent UTIs Diagnosed with ESBL UTI on December 02, completed a course of Bactrim to which it was sensitive. UA on admission with no current signs of infection, reflex urine culture not obtained as a result Blood Cx x 2 sets NGTD Was started on Invanz on admission, continue and follow Blood Cx results Consider Urology input, pt follows with Urology outpt Weakness Ambulatory dysfunction Patient general ambulates with walker But currently is weak, difficulty with ambulation Likely in setting of above However pt also notes that her lymphedema could be playing a role PT/OT- appreciate recs Atrial tachycardia S/p biventricular cardiac pacemaker Pt with pacemaker, noted runs of atrial arrhythmia on telemetry on 12/09 Pacemaker interrogated Cardiology consulted, appreciate recs -pacemaker readjusted -metoprolol succinate dose increased from 12.5mg qpm to 25mg qpm Continue with telemetry monitoring Chronic systolic and diastolic CHF Severe aortic stenosis Dilated cardiomyopathy EF was 30% but now improved to 55% in February 2023 echo S/p biventricular cardiac pacemaker On metoprolol succinate, torsemide and Aldactone. Potassium supplements Cardiology consulted, appreciate recs -continue with current home diuretic/BB regimen Continue to monitor for volume overload Chronic lower extremity lymphedema Per Daughter, slightly worse Dopplers with no noted DVT Will monitor STEVE on CKD stage III Baseline creatinine ~ 1 Presented creatinine 1.3 Improving If worsening will hold the diuretics and other nephrotoxic meds as able Monitor with AM labs Acute on Chronic anemia Hemoglobin 10.2 on admission, around baseline hgb dropped to 8.4 on 12/09 Will workup further with anemia panel (iron panel, b12 and folate levels) Monitor H/H transfuse if hgb <7 DMII [id number] of 6.7 ISS Hold home meds, resume on discharge Hypertension On metoprolol and diuretics Currently controlled, continue to monitor Hypothyroidism On Synthroid, continue Constipation continue stool softeners Diet: DMII/Low sodium DVT prophylaxis: Heparin subcu CODE STATUS: DNR per admitting provider's discussion with the daughter Dispo: PT/OT ordered, appreciate recs Admission and Anticipated Discharge Date Admission Date: December 09, 2023 Subjective Regla was seen laying in bed. Denied acute concerns. Per nursing had some difficulty with ambulation, daughter requesting rehab placement. Review of Systems Review of Systems: All systems reviewed & are unremarkable except as noted in Subjective Physical Exam Physical Exam: General: Alert, oriented. No acute distress Psych: Appropriate mood and affect Neuro: difficulty with movements HEENT: NC/AT CV: RRR Resp: Breath sounds decreased bilaterally, no increased effort of breathing. Abdomen: Soft, nontender Extremities: edema in arms and lower extremities bilaterally Results & Data Results & Data Vital Signs (Past 12 Hours) Vital Signs Temp Pulse Pulse Resp BP Pulse Ox O2 Del Method 12/12/23 11:32 36.5 C 62 18 113/57 L 93 Room Air 12/12/23 08:00 36.8 C 60 18 108/65 91 Room Air 12/12/23 07:41 61
[2023-12-13 05:20] LABS: Hematocrit (blood only) 26.8 % (37.0-47.0); Mean Corpuscular Hemoglobin 38.1 pg (25.0-34.0); Mean Corpuscular Hgb Conc 33.6 g/dL (32.0-36.0); Mean Corpuscular Volume 113.6 fL (80.0-100.0); Mean Platelet Volume 9.7 fL (9.4-12.4); Nucleated RBC # (auto) 0.07 K/uL (0.00-0.12); Nucleated RBC % (auto) 1.1 %; Platelet Count 300 K/uL (130-400); RDW Coefficient of Variation 13.8 % (11.5-14.5); RDW Standard Deviation 57.1 fL (36.4-46.3); Red Blood Count 2.36 M/uL (4.20-5.40); White Blood Count 6.25 K/ul (4.8-10.8)
[2023-12-13 05:38] LABS: Albumin Globulin Ratio 1.2 (0.9-2); Albumin Level 3.4 gm/dl (3.4-5.0); BUN Creatinine Ratio 18.4 (10-20); Bilirubin,Total 0.4 mg/dl (0.2-1.0); Calcium 9.6 mg/dl (8.6-10.3); Creatinine Clr Calc Pharmacy 32.4 ml/min; Est GFR (African American) 36.6 ml/min; Est GFR (Non-African American) 31.5 ml/min; Globulin 2.9 gm/dl (2.5-4.0); Magnesium 2.1 mg/dl (1.7-2.4); Phosphorus 4.5 mg/dl (2.5-4.9); Potassium 4.2 mmol/L (3.5-5.1); Total Protein 6.3 gm/dl (6.0-8.3)
--- NOTE | 2023-12-13 09:57 | Nephrology Consultation ---
Date of Consultation December 13, 2023 Assessment & Plan (1) NATY (acute kidney injury): (2) UTI due to extended-spectrum beta lactamase (ESBL) producing Escherichia coli: (3) Chronic combined systolic (congestive) and diastolic (congestive) heart failure: Current Renal function is only slightly worse than usual but this is in the setting of UTI with ESBL. also she has severe Aortic stenosis and Combined CHF. All of theses means she is expected to have a slightly higher creatinine going forward. Not volume depleted. In fact still has some e/o fluid overload/CHF. Raise torsemide to 60 bid given only 90% o2 sats. Advanced age with severe untreatable means need to revisit the goal of care. Will follow peripherally.. History of Present Illness Reason for Consultation: Naty on CKD with CHF Attending Physician: Elizabeth Matt MD History of Present Illness 88/F with Severe Aortic stenosis ( not even a candidate for TAVR), CHF ( Systolic and Diasltolic), CKD 3 A baseline about 1.0--1.2. She llives at home with 24 hours care and ambulates with walker was brought in because of weakness and ESBL- UTI. Patient was diagnosed with UTI on December 02 with ESBL and was taking Bactrim and completed the course. she has became more weaker and not able to ambulate. And she was also having some nausea. Because of her recent ESBL infection she was started on Invanz in the ER. CXR showed some pulm congestion. has been getting same dose of Diuretics as home. cards saw 3 days ago. Creat is only slightly higher than baseline at 1.4. Making urine ? amount. ROS--- Says eh is weak and unsteady. Chronic SOB and no worse than usual. 12 systems otherwise negative Physical Exam Physical Exam: General: No acute distress. RA but only 90% HEENT: Normocephalic. Atraumatic. Conjunctiva and sclera clear. NECK: No carotid bruits. No JVD. Carotid upstrokes are brisk. Heart: RRR. S1+, diminished S2. +3/6 systolic murmur Lungs: Clear to auscultation. No wheezes, rhonchi, rales. Abdomen: Normal bowel sounds. Soft. Nontender. No masses or organomegaly. No abdominal bruits. Extremities: No pitting edema/chronic lymphedema. No clubbing or cyanosis. NEURO: No focal deficits. PSYCH: Normal Allergies Allergy/AdvReac Type Severity Reaction Status Date / Time aspirin Allergy Intermediate Hives, Verified 12/09/23 21:28 shortness of breath ibuprofen Allergy Intermediate Rash, hives Verified 12/09/23 21:28 Penicillins Allergy Intermediate Rash, hives Verified 12/09/23 21:28 adhesive Allergy Mild Reddened Verified 12/09/23 21:28 and sore skin morphine AdvReac Severe BLACKED OUT Verified 12/09/23 21:28 ciprofloxacin AdvReac Intermediate DIZZINESS/H Verified 12/09/23 21:28 OARSE/DISOR IENTED sulfamethoxazole AdvReac Intermediate NAUSEA/VOMI Verified 12/09/23 21:28 [From Bactrim] TING/DIZZIN ESS trimethoprim [From Bactrim] AdvReac Intermediate NAUSEA/VOMI Verified 12/09/23 21:28 TING/DIZZIN ESS prednisone AdvReac Mild CONFUSION/BLURRED Verified 12/09/23 21:28 VISION/WEAKNESS Home Medications Medication Instructions Recorded Confirmed Type d-mannose 500 mg capsule 1,000 mg PO AMPM 10/22/22 12/09/23 History mirabegron 25 mg tablet,extended 25 mg PO QAM 10/22/22 12/09/23 History release 24 hr (Myrbetriq) omeprazole 20 mg capsule,delayed 20 mg PO DAILYBB 10/22/22 12/09/23 History release spironolactone 25 mg tablet 12.5 mg PO QAM 10/22/22 12/09/23 History (Aldactone) torsemide 20 mg tablet See Rx Instructions .Route .COMPLEX 10/22/22 12/09/23 History Lactobacillus acidophilus 10 10,000 mmu cells PO .QAFTERNOON 03/21/23 12/09/23 History billion cell capsule (Probiotic) bisacodyl 5 mg tablet,delayed 10 mg PO DAILY PRN Constipation 03/21/23 12/09/23 History release (Dulcolax (bisacodyl)) cholecalciferol (vitamin D3) 25 1,000 unit PO .QAFTERNOON 03/21/23 12/09/23 History mcg (1,000 unit) capsule clotrimazole 1 % topical cream 1 applic topical DAILY affected 03/21/23 12/09/23 History area colchicine 0.6 mg tablet 0.6 mg PO BID PRN gout attacks 03/21/23 12/09/23 History cyanocobalamin (vitamin B-12) 1,000 mcg PO .QAFTERNOON 03/21/23 12/09/23 History 1,000 mcg tablet (Vitamin B-12) dulaglutide 0.75 mg/0.5 mL 0.75 mg subcut WK 03/21/23 12/09/23 History subcutaneous pen injector (Trulicity) glucosamine-chondroitin 500 mg-400 1 tab PO AMPM 03/21/23 12/09/23 History mg tablet levothyroxine 88 mcg tablet 88 mcg PO DAILYBB 03/21/23 12/09/23 History magnesium oxide 400 mg (241.3 mg 400 mg PO .QAFTERNOON 03/21/23 12/09/23 History magnesium) tablet meclizine 25 mg tablet 25 mg PO TID PRN Dizziness 03/21/23 12/09/23 History metoprolol succinate 25 mg 12.5 mg PO QPM 03/21/23 12/09/23 History tablet,extended release 24 hr (Toprol XL) potassium chloride 20 mEq 20 meq PO AMHS 03/21/23 12/09/23 History tablet,extended release(part/cryst) promethazine-DM 6.25 mg-15 mg/5 mL 5 ml PO QID PRN persistant cough 03/21/23 12/09/23 History oral syrup benzonatate 100 mg capsule 100 mg PO TID PRN Cough 12/09/23 12/09/23 History conjugated estrogens 0.625 mg/gram 1 applic vaginal HS 12/09/23 12/09/23 History vaginal cream (Premarin) docusate sodium 100 mg capsule 100 mg PO BID 12/09/23 12/10/23 History glycerin 0.5 % eye drops (Biotrue See Rx Instructions .Route .COMPLEX 12/09/23 12/09/23 History Hydration Boost) metolazone 2.5 mg tablet 2.5 mg PO DAILY PRN FLUID 12/09/23 12/09/23 History RETENTION/LAST RESORT nitrofurantoin 100 mg PO HS 12/09/23 12/09/23 History monohydrate/macrocrystals 100 mg capsule (Macrobid) ondansetron HCl 4 mg tablet 4 mg PO Q6H PRN NAUSEA/VOMITING 12/09/23 12/09/23 History sulfamethoxazole 800 1 tab PO BID 12/09/23 12/09/23 History mg-trimethoprim 160 mg tablet Patient History Medical History Acute on chronic heart failure with preserved ejection fraction (HFpEF) Dizziness Lactic acidemia Acute UTI CHF (congestive heart failure) UTI due to extended-spectrum beta lactamase (ESBL) producing Escherichia coli Hypoxia Pneumonia Diabetes mellitus, type II Lymphedema Pacemaker History of recurrent UTIs Arthritis LBBB (left bundle branch block) Vertigo Systolic heart failure Hypothyroidism NICM (nonischemic cardiomyopathy) Surgical History History of hysterectomy Hx of cholecystectomy History of knee replacement, total Family History Other Diabetes Heart disease Hypertension Social History Smoking Status: Never smoker Second Hand Exposure: No; Do You Dip or Chew Tobacco: No; Hx Alcohol Use: No Hx Substance Use: No Preferred Language: Mexican Communication Ability: Effective Dining Room Helper Required: No Beliefs That Will Affect Care: None marital status: / Current Living Situation: Family Current Living Situation Comment: has 17/03 help at home current occupational status: retired How many Children do You have: 1 Other Information That Helps Us Care for You: No Feels Safe at Home: Yes Safety Concerns: Feels Safe At This Time Assistive Devices: Cane, Lift Chair, Walker and Other Results & Data Vital Signs (Past 12 Hours) Vital Signs Temp Pulse Pulse Resp BP BP Pulse Ox 12/13/23 08:51 78 12/13/23 08:24 12/13/23 07:27 36.4 C L 60 20 111/69 90 12/13/23 03:09 36.4 C L 69 18 109/66 93 12/12/23 22:58 36.2 C L 78 18 122/76 95 O2 Del Method 12/13/23 08:51 12/13/23 08:24 Room Air 12/13/23 07:27 Room Air 12/13/23 03:09 Room Air 12/12/23 22:58 Room Air
--- NOTE | 2023-12-13 13:03 | Hospitalist Progress Note ---
Date of Service December 13, 2023 Assessment & Plan (1) UTI due to extended-spectrum beta lactamase (ESBL) producing Escherichia coli: Plan Pt is an 88yoF with PMHx significant for DM type II, recurrent UTIs, hypothyroidism, hyperlipidemia, CKD 3, chronic systolic congestive heart failure, exertional dyspnea, first-degree AV block, left bundle-branch block, CAD, hypertension, lymphedema of both lower extremities, aspirin allergy, ,History of benign positional vertigo, history of severe aortic stenosis, history of ischemic cardiomyopathy, s/p biventricular cardiac pacemaker presenting with weakness and ESBL UTI. Patient was diagnosed with UTI on December 02 with ESBL and completed a course of Bactrim to which it was sensitive. Currently stable for discharge and awaiting placement. ESBL UTI History of recurrent UTIs Diagnosed with ESBL UTI on December 02, completed a course of Bactrim to which it was sensitive. UA on admission with no current signs of infection, reflex urine culture not obtained as a result Blood Cx x 2 sets NGTD Was started on Invanz on admission However UA unremarkable, Blood Cx NGTD, discontinued Consider Urology input, pt follows with Urology outpt Weakness Ambulatory dysfunction Patient general ambulates with walker But currently is weak, difficulty with ambulation Likely in setting of above However pt also notes that her lymphedema could be playing a role PT/OT- appreciate recs Atrial tachycardia S/p biventricular cardiac pacemaker Pt with pacemaker, noted runs of atrial arrhythmia on telemetry on 12/09 Pacemaker interrogated Cardiology consulted, appreciate recs -pacemaker readjusted -metoprolol succinate dose increased from 12.5mg qpm to 25mg qpm Continue with telemetry monitoring Chronic systolic and diastolic CHF Severe aortic stenosis Dilated cardiomyopathy EF was 30% but now improved to 55% in February 2023 echo S/p biventricular cardiac pacemaker On metoprolol succinate, torsemide and Aldactone. Potassium supplements Cardiology consulted, appreciate recs -continue with current home diuretic/BB regimen Continue to monitor for volume overload Chronic lower extremity lymphedema Per Daughter, slightly worse Dopplers with no noted DVT Will monitor STEVE on CKD stage III Baseline creatinine ~ 1 Presented creatinine 1.3 Improving If worsening will hold the diuretics and other nephrotoxic meds as able Monitor with AM labs Acute on Chronic anemia Hemoglobin 10.2 on admission, around baseline hgb dropped to 8.4 on 12/09 Will workup further with anemia panel (iron panel, b12 and folate levels) Monitor H/H transfuse if hgb <7 DMII [id number] of 6.7 ISS Hold home meds, resume on discharge Hypertension On metoprolol and diuretics Currently controlled, continue to monitor Hypothyroidism On Synthroid, continue Constipation continue stool softeners Diet: DMII/Low sodium DVT prophylaxis: Heparin subcu CODE STATUS: DNR per admitting provider's discussion with the daughter Dispo: PT/OT ordered, appreciate recs Admission and Anticipated Discharge Date Admission Date: December 09, 2023 Subjective Regla was seen sitting in chair at bedside. Denied acute concerns. Review of Systems Review of Systems: All systems reviewed & are unremarkable except as noted in Subjective Physical Exam Physical Exam: General: Alert, oriented. No acute distress Psych: Appropriate mood and affect Neuro: difficulty with movements HEENT: NC/AT CV: RRR Resp: Breath sounds decreased bilaterally, no increased effort of breathing. Abdomen: Soft, nontender Extremities: edema in arms and lower extremities bilaterally Results & Data Results & Data Vital Signs (Past 12 Hours) Vital Signs Temp Pulse Pulse Resp BP BP Pulse Ox 12/13/23 11:45 36.7 C 71 20 110/64 92 12/13/23 08:51 78 12/13/23 08:24 12/13/23 07:27 36.4 C L 60 20 111/69 90 12/13/23 03:09 36.4 C L 69 18 109/66 93 O2 Del Method 12/13/23 11:45 Room Air 12/13/23 08:51 12/13/23 08:24 Room Air 12/13/23 07:27 Room Air 12/13/23 03:09 Room Air
[2023-12-13] MEDS: TORSEMIDE 20 MG TAB PO SCH (16:11)
[2023-12-14 04:56] LABS: Hematocrit (blood only) 27.3 % (37.0-47.0); Hemoglobin 8.8 g/dl (12.0-16.0); Mean Corpuscular Hemoglobin 37.3 pg (25.0-34.0); Mean Corpuscular Hgb Conc 32.2 g/dL (32.0-36.0); Mean Corpuscular Volume 115.7 fL (80.0-100.0); Mean Platelet Volume 9.7 fL (9.4-12.4); Nucleated RBC # (auto) 0.08 K/uL (0.00-0.12); Nucleated RBC % (auto) 1.2 %; Platelet Count 292 K/uL (130-400); RDW Coefficient of Variation 13.9 % (11.5-14.5); RDW Standard Deviation 59.3 fL (36.4-46.3); Red Blood Count 2.36 M/uL (4.20-5.40); White Blood Count 6.43 K/ul (4.8-10.8)
[2023-12-14 05:05] LABS: BUN Creatinine Ratio 23.1 (10-20); Calcium 9.5 mg/dl (8.6-10.3); Creatinine Clr Calc Pharmacy 35.4 ml/min; Est GFR (African American) 40.9 ml/min; Est GFR (Non-African American) 35.3 ml/min; Potassium 3.9 mmol/L (3.5-5.1)
--- NOTE | 2023-12-14 13:01 | Hospitalist Progress Note ---
Date of Service December 14, 2023 Assessment & Plan (1) UTI due to extended-spectrum beta lactamase (ESBL) producing Escherichia coli: Plan Pt is an 88yoF with PMHx significant for DM type II, recurrent UTIs, hypothyroidism, hyperlipidemia, CKD 3, chronic systolic congestive heart failure, exertional dyspnea, first-degree AV block, left bundle-branch block, CAD, hypertension, lymphedema of both lower extremities, aspirin allergy, ,History of benign positional vertigo, history of severe aortic stenosis, history of ischemic cardiomyopathy, s/p biventricular cardiac pacemaker presenting with weakness and ESBL UTI. Patient was diagnosed with UTI on December 02 with ESBL and completed a course of Bactrim to which it was sensitive. Currently stable for discharge and awaiting placement. ESBL UTI History of recurrent UTIs Diagnosed with ESBL UTI on December 02, completed a course of Bactrim to which it was sensitive. UA on admission with no current signs of infection, reflex urine culture not obtained as a result Blood Cx x 2 sets NGTD Was started on Invanz on admission However UA unremarkable, Blood Cx NGTD, discontinued Consider Urology input, pt follows with Urology outpt Weakness Ambulatory dysfunction Patient general ambulates with walker But currently is weak, difficulty with ambulation Likely in setting of above However pt also notes that her lymphedema could be playing a role PT/OT- appreciate recs -pt and daughter want rehab Atrial tachycardia S/p biventricular cardiac pacemaker Pt with pacemaker, noted runs of atrial arrhythmia on telemetry on 12/09 Pacemaker interrogated Cardiology consulted, appreciate recs -pacemaker readjusted -metoprolol succinate dose increased from 12.5mg qpm to 25mg qpm Continue with telemetry monitoring Chronic systolic and diastolic CHF Severe aortic stenosis Dilated cardiomyopathy EF was 30% but now improved to 55% in February 2023 echo S/p biventricular cardiac pacemaker On metoprolol succinate, torsemide and Aldactone. Potassium supplements Cardiology consulted, appreciate recs -continue with current home diuretic/BB regimen -nephrology increased torsemide dose on 12/12 Continue to monitor for volume overload Chronic lower extremity lymphedema Per Daughter, slightly worse Dopplers with no noted DVT Will monitor STEVE on CKD stage III Baseline creatinine ~ 1 Presented creatinine 1.3, climbing Improving If worsening will hold the diuretics and other nephrotoxic meds as able Monitor with AM labs Nephrology consulted, appreciate recs -increased torsemide dose -likely new baseline Acute on Chronic anemia Hemoglobin 10.2 on admission, around baseline hgb dropped to 8.4 on 12/09 Will workup further with anemia panel (iron panel, b12 and folate levels) Monitor H/H transfuse if hgb <7 DMII [id number] of 6.7 ISS Hold home meds, resume on discharge Hypertension On metoprolol and diuretics Currently controlled, continue to monitor Hypothyroidism On Synthroid, continue Constipation continue stool softeners Diet: DMII/Low sodium DVT prophylaxis: Heparin subcu CODE STATUS: DNR per admitting provider's discussion with the daughter Dispo: PT/OT ordered, appreciate recs Admission and Anticipated Discharge Date Admission Date: December 09, 2023 Subjective Regla was seen sitting in chair at bedside. Denied acute concerns. Review of Systems Review of Systems: All systems reviewed & are unremarkable except as noted in Subjective Physical Exam Physical Exam: General: Alert, oriented. No acute distress Psych: Appropriate mood and affect Neuro: difficulty with movements HEENT: NC/AT CV: RRR Resp: Breath sounds decreased bilaterally, no increased effort of breathing. Abdomen: Soft, nontender Extremities: edema in arms and lower extremities bilaterally Results & Data Results & Data Vital Signs (Past 12 Hours) Vital Signs Temp Pulse Pulse Resp BP BP Pulse Ox 12/14/23 11:23 36.7 C 69 18 136/61 91 12/14/23 07:23 36.6 C 60 20 116/64 94 12/14/23 07:10 63 12/14/23 06:56 12/14/23 03:20 37.0 C 60 18 114/64 92 O2 Del Method 12/14/23 11:23 Room Air 12/14/23 07:23 Room Air 12/14/23 07:10 12/14/23 06:56 Room Air 12/14/23 03:20 Room Air
[2023-12-15 06:19] LABS: Hematocrit (blood only) 27.7 % (37.0-47.0); Hemoglobin 9.2 g/dl (12.0-16.0); Mean Corpuscular Hemoglobin 37.7 pg (25.0-34.0); Mean Corpuscular Hgb Conc 33.2 g/dL (32.0-36.0); Mean Corpuscular Volume 113.5 fL (80.0-100.0); Mean Platelet Volume 9.6 fL (9.4-12.4); Nucleated RBC # (auto) 0.08 K/uL (0.00-0.12); Nucleated RBC % (auto) 1.3 %; Platelet Count 319 K/uL (130-400); RDW Coefficient of Variation 13.7 % (11.5-14.5); RDW Standard Deviation 56.4 fL (36.4-46.3); Red Blood Count 2.44 M/uL (4.20-5.40); White Blood Count 6.04 K/ul (4.8-10.8)
[2023-12-15 06:53] LABS: BUN Creatinine Ratio 25.7 (10-20); Calcium 9.6 mg/dl (8.6-10.3); Creatinine Clr Calc Pharmacy 41.6 ml/min; Est GFR (African American) 50.3 ml/min; Est GFR (Non-African American) 43.4 ml/min; Potassium 4.2 mmol/L (3.5-5.1)
--- NOTE | 2023-12-15 16:09 | Hospitalist Progress Note ---
Date of Service December 15, 2023 Assessment & Plan (1) UTI due to extended-spectrum beta lactamase (ESBL) producing Escherichia coli: Plan Pt is an 88yoF with PMHx significant for DM type II, recurrent UTIs, hypothyroidism, hyperlipidemia, CKD 3, chronic systolic congestive heart failure, exertional dyspnea, first-degree AV block, left bundle-branch block, CAD, hypertension, lymphedema of both lower extremities, aspirin allergy, ,History of benign positional vertigo, history of severe aortic stenosis, history of ischemic cardiomyopathy, s/p biventricular cardiac pacemaker presenting with weakness and ESBL UTI. Patient was diagnosed with UTI on December 02 with ESBL and completed a course of Bactrim to which it was sensitive. Currently stable for discharge and awaiting placement. ESBL UTI History of recurrent UTIs Diagnosed with ESBL UTI on December 02, completed a course of Bactrim to which it was sensitive. UA on admission with no current signs of infection, reflex urine culture not obtained as a result Blood Cx x 2 sets NGTD Was started on Invanz on admission However UA unremarkable, Blood Cx NGTD, discontinued Consider Urology input, pt follows with Urology outpt Weakness Ambulatory dysfunction Patient general ambulates with walker But currently is weak, difficulty with ambulation Likely in setting of above However pt also notes that her lymphedema could be playing a role PT/OT- appreciate recs -pt and daughter want rehab Atrial tachycardia S/p biventricular cardiac pacemaker Pt with pacemaker, noted runs of atrial arrhythmia on telemetry on 12/09 Pacemaker interrogated Cardiology consulted, appreciate recs -pacemaker readjusted -metoprolol succinate dose increased from 12.5mg qpm to 25mg qpm Continue with telemetry monitoring Chronic systolic and diastolic CHF Severe aortic stenosis Dilated cardiomyopathy EF was 30% but now improved to 55% in February 2023 echo S/p biventricular cardiac pacemaker On metoprolol succinate, torsemide and Aldactone. Potassium supplements Cardiology consulted, appreciate recs -continue with current home diuretic/BB regimen -nephrology increased torsemide dose on 12/12 Continue to monitor for volume overload Chronic lower extremity lymphedema Per Daughter, slightly worse Dopplers with no noted DVT Will monitor STEVE on CKD stage III Baseline creatinine ~ 1 Presented creatinine 1.3, climbing Improving If worsening will hold the diuretics and other nephrotoxic meds as able Monitor with AM labs Nephrology consulted, appreciate recs -increased torsemide dose -likely new baseline Currently normal Acute on Chronic anemia Hemoglobin 10.2 on admission, around baseline hgb dropped to 8.4 on 12/09 Will workup further with anemia panel (iron panel, b12 and folate levels) Monitor H/H transfuse if hgb <7 DMII [id number] of 6.7 ISS Hold home meds, resume on discharge Hypertension On metoprolol and diuretics Currently controlled, continue to monitor Hypothyroidism On Synthroid, continue Constipation continue stool softeners Diet: DMII/Low sodium DVT prophylaxis: Heparin subcu CODE STATUS: DNR per admitting provider's discussion with the daughter Dispo: PT/OT ordered, appreciate recs Admission and Anticipated Discharge Date Admission Date: December 09, 2023 Subjective Regla was seen sitting in chair at bedside. Shw had difficulty walking from bathroom to chair with her walker. Nursing assisted. Denied acute concerns. Review of Systems Review of Systems: All systems reviewed & are unremarkable except as noted in Subjective Physical Exam Physical Exam: General: Alert, oriented. No acute distress Psych: Appropriate mood and affect Neuro: difficulty with movements HEENT: NC/AT CV: RRR Resp: Breath sounds decreased bilaterally, no increased effort of breathing. Abdomen: Soft, nontender Extremities: edema in arms and lower extremities bilaterally Results & Data Results & Data Vital Signs (Past 12 Hours) Vital Signs Temp Pulse Pulse Resp BP BP Pulse Ox 12/15/23 15:45 36.8 C 80 18 118/72 92 12/15/23 15:29 76 12/15/23 11:06 36.6 C 73 18 94/63 L 92 12/15/23 08:14 36.3 C L 67 18 138/69 90 12/15/23 07:11 12/15/23 06:58 72 O2 Del Method 12/15/23 15:45 Room Air 12/15/23 15:29 12/15/23 11:06 Room Air 12/15/23 08:14 Room Air 12/15/23 07:11 Room Air 12/15/23 06:58
[2023-12-16 08:10] LABS: Anion Gap 8 (3-11); BUN Creatinine Ratio 31.3 (10-20); Blood Urea Nitrogen 31 mg/dl (6-23); Calcium 9.4 mg/dl (8.6-10.3); Carbon Dioxide 27 mmol/L (21-32); Chloride 102 mmol/L (98-107); Creatinine Clr Calc Pharmacy 47.7 ml/min; Est GFR (Non-African American) 50.9 ml/min; Glucose 138 mg/dl (70-99(Fasting)); Sodium 137 mmol/L (136-145)
[2023-12-16 08:38] LABS: Hematocrit (blood only) 28.4 % (37.0-47.0); Hemoglobin 9.5 g/dl (12.0-16.0); Mean Corpuscular Hemoglobin 38.3 pg (25.0-34.0); Mean Corpuscular Hgb Conc 33.5 g/dL (32.0-36.0); Mean Corpuscular Volume 114.5 fL (80.0-100.0); Mean Platelet Volume 9.5 fL (9.4-12.4); Nucleated RBC # (auto) 0.05 K/uL (0.00-0.12); Nucleated RBC % (auto) 0.8 %; Platelet Count 324 K/uL (130-400); RDW Coefficient of Variation 13.9 % (11.5-14.5); RDW Standard Deviation 58.5 fL (36.4-46.3); Red Blood Count 2.48 M/uL (4.20-5.40)
--- NOTE | 2023-12-16 11:19 | Hospitalist Progress Note ---
Date of Service December 16, 2023 Assessment & Plan (1) UTI due to extended-spectrum beta lactamase (ESBL) producing Escherichia coli: Plan Pt is an 88yoF with PMHx significant for DM type II, recurrent UTIs, hypothyroidism, hyperlipidemia, CKD 3, chronic systolic congestive heart failure, exertional dyspnea, first-degree AV block, left bundle-branch block, CAD, hypertension, lymphedema of both lower extremities, aspirin allergy, ,History of benign positional vertigo, history of severe aortic stenosis, history of ischemic cardiomyopathy, s/p biventricular cardiac pacemaker presenting with weakness and ESBL UTI. Patient was diagnosed with UTI on December 02 with ESBL and completed a course of Bactrim to which it was sensitive. Currently stable for discharge and awaiting placement. ESBL UTI History of recurrent UTIs Diagnosed with ESBL UTI on December 02, completed a course of Bactrim to which it was sensitive. UA on admission with no current signs of infection, reflex urine culture not obtained as a result Blood Cx x 2 sets NGTD Was started on Invanz on admission However UA unremarkable, Blood Cx NGTD, Invanz discontinued Consider Urology input, pt follows with Urology outpt Weakness Ambulatory dysfunction Patient generally ambulates with walker But currently weak, difficulty with ambulation Likely in setting of above However pt also notes that her lymphedema could be playing a role PT/OT- appreciate recs -pt and daughter want rehab -currently awaiting placement Atrial tachycardia S/p biventricular cardiac pacemaker Pt with pacemaker, noted runs of atrial arrhythmia on telemetry on 12/09 Pacemaker interrogated Cardiology consulted, appreciate recs -pacemaker readjusted -metoprolol succinate dose increased from 12.5mg qpm to 25mg qpm Continue with telemetry monitoring Chronic systolic and diastolic CHF Severe aortic stenosis Dilated cardiomyopathy EF was 30% but now improved to 55% in February 2023 echo S/p biventricular cardiac pacemaker On metoprolol succinate, torsemide and Aldactone. Potassium supplements Cardiology consulted, appreciate recs -continue with current home diuretic/BB regimen -nephrology increased torsemide dose on 12/12 to torsemide 60mg BID Continue to monitor for volume overload Chronic lower extremity lymphedema Per Daughter, slightly worse Dopplers with no noted DVT Will monitor STEVE on CKD stage III Baseline creatinine ~ 1 Presented creatinine 1.3, climbing Improving If worsening will hold the diuretics and other nephrotoxic meds as able Monitor with AM labs Nephrology consulted, appreciate recs -increased torsemide dose -likely new baseline Currently normal Acute on Chronic anemia Hemoglobin 10.2 on admission, around baseline hgb dropped to 8.4 on 12/09 Will workup further with anemia panel (iron panel, b12 and folate levels)- all within normal limits Monitor H/H transfuse if hgb <7 DMII Hepikceyxap6j of 6.7 ISS Hold home meds, resume on discharge Hypertension On metoprolol and diuretics Currently controlled, continue to monitor Hypothyroidism On Synthroid, continue Constipation continue stool softeners Diet: DMII/Low sodium DVT prophylaxis: Heparin subcu CODE STATUS: DNR per admitting provider's discussion with the daughter Dispo: PT/OT ordered, appreciate recs. Pt currently awaiting placement at rehab facility per family request Admission and Anticipated Discharge Date Admission Date: December 09, 2023 Subjective Regla was seen sitting in chair at bedside. Denied acute concerns. Currently awaiting placement Review of Systems Review of Systems: All systems reviewed & are unremarkable except as noted in Subjective Physical Exam Physical Exam: General: Alert, oriented. No acute distress Psych: Appropriate mood and affect Neuro: difficulty with movements HEENT: NC/AT CV: RRR Resp: Breath sounds decreased bilaterally, no increased effort of breathing. Abdomen: Soft, nontender Extremities: edema in arms and lower extremities bilaterally Results & Data Results & Data Vital Signs (Past 12 Hours) Vital Signs Temp Pulse Pulse Resp BP BP Pulse Ox 12/16/23 10:29 12/16/23 10:29 62 12/16/23 07:23 36.6 C 63 18 142/70 H 91 12/16/23 03:45 36.9 C 75 18 110/64 91 12/15/23 23:46 36.7 C 75 18 117/59 L 93 12/15/23 23:22 78 O2 Del Method 12/16/23 10:29 Room Air 12/16/23 10:29 12/16/23 07:23 Room Air 12/16/23 03:45 Room Air 12/15/23 23:46 Room Air 12/15/23 23:22
[2023-12-17 06:18] LABS: Hematocrit (blood only) 28.1 % (37.0-47.0); Hemoglobin 9.2 g/dl (12.0-16.0); Mean Corpuscular Hemoglobin 37.9 pg (25.0-34.0); Mean Corpuscular Hgb Conc 32.7 g/dL (32.0-36.0); Mean Corpuscular Volume 115.6 fL (80.0-100.0); Mean Platelet Volume 9.7 fL (9.4-12.4); Nucleated RBC # (auto) 0.04 K/uL (0.00-0.12); Nucleated RBC % (auto) 0.5 %; Platelet Count 320 K/uL (130-400); RDW Coefficient of Variation 13.7 % (11.5-14.5); RDW Standard Deviation 58.4 fL (36.4-46.3); Red Blood Count 2.43 M/uL (4.20-5.40); White Blood Count 7.47 K/ul (4.8-10.8)
[2023-12-17 06:25] LABS: Calcium 9.3 mg/dl (8.6-10.3); Creatinine Clr Calc Pharmacy 38.1 ml/min; Est GFR (African American) 44.5 ml/min; Est GFR (Non-African American) 38.4 ml/min; Magnesium 2.1 mg/dl (1.7-2.4); Phosphorus 4.1 mg/dl (2.5-4.9); Potassium 3.8 mmol/L (3.5-5.1)
--- NOTE | 2023-12-17 12:27 | Discharge Summary ---
Date of Service December 17, 2023 Admission HPI Per Admitting Provider This is an 88-year-old female with PMH DM type II, recurrent UTIs, hypothyroidism, hyperlipidemia, CKD 3, chronic systolic congestive heart failure, exertional dyspnea, first-degree AV block, left bundle-branch block, CAD, hypertension, lymphedema of both lower extremities, aspirin allergy, ,History of benign positional vertigo, history of severe aortic stenosis, history of ischemic cardiomyopathy, status post biventricular cardiac pacemaker who lives at home with 24 hours care and ambulates with walker was brought in because of weakness and ESBL UTI. Patient was diagnosed with UTI on December 02 with ESBL which is also sensitive to Bactrim. She was taking Bactrim until today and completed the course. But as per daughter patient urine looks clear but she has became more weaker. Currently because of weakness is not able to ambulate. And she was also having some nausea. Which prompted daughter to bring patient to the ER. Because of her recent ESBL infection she was started on Invanz in the ER. Daughter helped with most H&P but patient is also alert and oriented x 3. Has chronic dizziness. Currently no runny nose or sore throat or cough. Appetite is okay. No difficulty swallowing. No chest pain . Has GARNICA.. Currently no nausea. Has some right sided back pain. No burning micturition. Somewhat constipated. Daughter thinks Since yesterday patient gained about 3 pounds of weight. She has chronic lymphedema. But thinks edema is slightly worse. Daughter also wants her mom to be active with physical therapy because she does not want her to go to rehab. Also recommends skin barrier cream. Also recommend to take her to bathroom every 2-3 hours during the morning to micturate and also get the chance to ambulate. And also requesting to place her on lower bed so she can easily get up. Past medical history. As mentioned above. Past surgical history. Bilateral total knee replacements. Lithotripsy. Excision of seborrheic keratosis on the left breast. Laparoscopic kelly cystectomy. Total hysterectomy. Social history. . Lives at home with 24 hours care. No smoking. No alcohol use. No drug use. Family history. Mother had diabetes. [place]. Hypertension. Father had bladder cancer. Admission Exam Per Admitting Provider General- Not in distress Head- atraumatic Eyes- PERRL. ENT- oropharynx clear Neck- supple, no JVD. Lungs- clear to auscultation no wheezing or crackles. Heart- regular rate and rhythm; ESM heard, no gallop. Abdomen- normal bowel sounds, soft, nontender, no distension. Extremities- chronic lower extremity lymphedema seen. No erythema seen. Neuro- alert, oriented x 3; PERRL, no facial palsy; no dysarthria; obeys simple commands. Principal Diagnosis ESBL UTI STEVE on CKD stage 3 Discharge Exam General: Elderly F in No acute distress Psych: Appropriate mood and affect Neuro: awake, alert, answers simple questions appropriately, difficulty with movements HEENT: NC/AT CV: RRR Resp: Breath sounds decreased bilaterally, no increased effort of breathing. Abdomen: Soft, nontender Extremities: edema in arms and lower extremities bilaterally Discharge Data Allergies Allergy/AdvReac Type Severity Reaction Status Date / Time aspirin Allergy Intermediate Hives, Verified 12/09/23 21:28 shortness of breath ibuprofen Allergy Intermediate Rash, hives Verified 12/09/23 21:28 Penicillins Allergy Intermediate Rash, hives Verified 12/09/23 21:28 adhesive Allergy Mild Reddened Verified 12/09/23 21:28 and sore skin morphine AdvReac Severe BLACKED OUT Verified 12/09/23 21:28 ciprofloxacin AdvReac Intermediate DIZZINESS/H Verified 12/09/23 21:28 OARSE/DISOR IENTED sulfamethoxazole AdvReac Intermediate NAUSEA/VOMI Verified 12/09/23 21:28 [From Bactrim] TING/DIZZIN ESS trimethoprim [From Bactrim] AdvReac Intermediate NAUSEA/VOMI Verified 12/09/23 21:28 TING/DIZZIN ESS prednisone AdvReac Mild CONFUSION/BLURRED Verified 12/09/23 21:28 VISION/WEAKNESS Consultations 12/10/23 09:32 Consult Cardiology Routine 12/13/23 08:31 Consult Nephrology Routine Ordered Studies 12/10/23 01:08 US venous doppler LE BI Routine FINDINGS: There is no sonographic evidence of deep venous thrombosis identified in the right or left lower extremity. The common femoral, superficial femoral, and popliteal veins are patent and normally compressible bilaterally. The greater saphenous vein and the profunda femoris vein at the junction with the common femoral vein are clear in both legs. The visualized calf veins are patent bilaterally. IMPRESSION: There is no sonographic evidence of deep venous thrombosis identified in the right or left lower extremity. Hospital Course (1) UTI due to extended-spectrum beta lactamase (ESBL) producing Escherichia coli: Plan Pt is an 88yoF with PMHx significant for DM type II, recurrent UTIs, hypothyroidism, hyperlipidemia, CKD 3, chronic systolic congestive heart failure, exertional dyspnea, first-degree AV block, left bundle-branch block, CAD, hypertension, lymphedema of both lower extremities, aspirin allergy, ,History of benign positional vertigo, history of severe aortic stenosis, history of ischemic cardiomyopathy, s/p biventricular cardiac pacemaker presenting with weakness and ESBL UTI. Patient was diagnosed with UTI on December 02 with ESBL and completed a course of Bactrim to which it was sensitive. ESBL UTI History of recurrent UTIs Diagnosed with ESBL UTI on December 02, completed a course of Bactrim to which it was sensitive. UA on admission with no current signs of infection, reflex urine culture not obtained as a result Blood Cx x 2 sets NGTD Was started on Invanz on admission However UA unremarkable, Blood Cx NGTD, Invanz discontinued Consider Urology input, pt follows with Urology outpt Weakness Ambulatory dysfunction Patient generally ambulates with walker But currently weak, difficulty with ambulation Likely in setting of above However pt also notes that her lymphedema could be playing a role PT/OT- appreciate recs -per CM, plan to DC home with HH Atrial tachycardia S/p biventricular cardiac pacemaker Pt with pacemaker, noted runs of atrial arrhythmia on telemetry on 12/09 Pacemaker interrogated Cardiology consulted, appreciate recs -pacemaker readjusted -metoprolol succinate dose increased from 12.5mg qpm to 25mg qpm Continue with telemetry monitoring Chronic systolic and diastolic CHF Severe aortic stenosis Dilated cardiomyopathy EF was 30% but now improved to 55% in February 2023 echo S/p biventricular cardiac pacemaker On metoprolol succinate, torsemide and Aldactone. Potassium supplements Cardiology consulted, appreciate recs -continue with current home diuretic/BB regimen -nephrology increased torsemide dose on 12/12 to torsemide 60mg BID Continue to monitor for volume overload Chronic lower extremity lymphedema Per Daughter, slightly worse Dopplers with no noted DVT Will monitor STEVE on CKD stage III Baseline creatinine ~ 1 Presented creatinine 1.3, climbing Improving If worsening will hold the diuretics and other nephrotoxic meds as able Monitor with AM labs Nephrology consulted, appreciate recs -increased torsemide dose -likely new baseline Currently normal Acute on Chronic anemia Hemoglobin 10.2 on admission, around baseline hgb dropped to 8.4 on 12/09 anemia panel (iron panel, b12 and folate levels)- all within normal limits Monitor H/H transfuse if hgb <7 DMII [id number] of 6.7 ISS Hold home meds, resume on discharge Hypertension On metoprolol and diuretics Currently controlled, continue to monitor Hypothyroidism On Synthroid, continue Constipation continue stool softeners Dispo: plan to DC home w/ HH Total Time Total Time Spent Total Time Spent (In Minutes): 40 Discharge Plan Discharge Items Patient Disposition: Home - Home Health Services Reason For Visit: ESBL UTI, WEAKNESS, EDEMA Discharge Diagnosis: ESBL UTI STEVE on CKD stage 3 Activity: Per Instructions section Non-emergency contact: Primary Care Provider Call non-emergency contact if: you have any medication questions and your symptoms worsen Follow-up/Referrals: Verónica Benavides MD [Primary Care Provider] - (Date & Time 12/22/2023 1:20 PM Provider Kusum Jones CRNP Department Family Medicine [facility] ) Diet: Carb Consistent or DM2, Heart Healthy and Low Sodium (2gm) Addtl Attending Provider Instructions: Follow up with your primary care doctor within 1 week. The appointment was scheduled for you for 12/22/2023. Your metoprolol and torsemide doses were changed - make sure you take them as prescribed. Pending Studies at Discharge: No Stand-Alone Forms: My [facility], Smoking Cessation Medications and DC Order Prescriptions: New metoprolol succinate 25 mg Tablet Extended Release 24 Hr 25 mg PO QPM Qty: 30 0RF torsemide 20 mg Tablet 60 mg PO BID Qty: 60 0RF Continued omeprazole 20 mg capsule,delayed release(DR/EC) 20 mg PO DAILYBB Myrbetriq 25 mg tablet extended release 24 hr 25 mg PO QAM d-mannose 500 mg Capsule 1,000 mg PO AMPM spironolactone [Aldactone] 25 mg tablet 12.5 mg PO QAM levothyroxine 88 mcg tablet 88 mcg PO DAILYBB magnesium oxide 400 mg (241.3 mg magnesium) tablet 400 mg PO .QAFTERNOON cholecalciferol (vitamin D3) 25 mcg (1,000 unit) capsule 1,000 unit PO .QAFTERNOON glucosamine-chondroitin 500-400 mg Tablet 1 tab PO AMPM potassium chloride 20 mEq tablet,ER particles/crystals 20 meq PO AMHS cyanocobalamin (vitamin B-12) [Vitamin B-12] 1,000 mcg Tablet 1,000 mcg PO .QAFTERNOON Probiotic 10 billion cell Capsule 10,000 mmu cells PO .QAFTERNOON Trulicity 0.75 mg/0.5 mL pen injector 0.75 mg SUBCUT WK Rx Instructions: wednesdays promethazine-DM 6.25-15 mg/5 mL syrup 5 ml PO QID PRN (Reason: persistant cough) meclizine 25 mg tablet 25 mg PO TID PRN (Reason: Dizziness) colchicine 0.6 mg tablet 0.6 mg PO BID PRN (Reason: gout attacks) bisacodyl [Dulcolax (bisacodyl)] 5 mg Tablet,Delayed Release (Dr/Ec) 10 mg PO DAILY PRN (Reason: Constipation) clotrimazole 1 % cream 1 applic TOPICAL DAILY Rx Instructions: APPLY UNDER BREASTS, ABD FOLDS, GROIN AREA metolazone 2.5 mg Tablet 2.5 mg PO DAILY PRN (Reason: FLUID RETENTION/LAST RESORT) ondansetron HCl 4 mg tablet 4 mg PO Q6H PRN (Reason: NAUSEA/VOMITING) Rx Instructions: PER PT'S DAUGHTER "TAKES WITH BACTRIM TO HELP WITH NAUSEA/VOMITING". benzonatate [Tessalon Perles] 100 mg Capsule 100 mg PO TID PRN (Reason: Cough) Premarin 0.625 mg/gram cream 1 applic vaginal HS Rx Instructions: APPLY PEA-SIZE AMT TO VULUAR AT HS FOR IRRITATION docusate sodium 100 mg Capsule 100 mg PO BID Biotrue Hydration Boost 0.5 % Drops See Rx Instructions .ROUTE .COMPLEX Rx Instructions: TAKES 2 DRP OPR BID, THEN 1 DRP OPL BID. CAN USE MORE OFTEN IF NEEDED FOR DRY EYES. Discontinued torsemide 20 mg tablet See Rx Instructions .ROUTE .COMPLEX Rx Instructions: TAKES 60 MG QAM, THEN 40 MG Q AFTERNOON metoprolol succinate [Toprol XL] 25 mg tablet extended release 24 hr 12.5 mg PO QPM sulfamethoxazole-trimethoprim 800-160 mg tablet 1 tab PO BID Rx Instructions: STARTED 12/03/23 FOR 7 DAYS, PT TAKES ZOFRAN WITH EVERY DOSE TO HELP WITH NAUSEA/VOMITING. nitrofurantoin monohyd/m-cryst [Macrobid] 100 mg Capsule 100 mg PO HS Rx Instructions: PREVENTION must administer with a meal/food Discharge Orders: Discharge Order (Routine); Ordered 12/17/23 Ordered By: Ralph Birch/Other Patient Handouts: Managing Type 2 Diabetes Admission Data Admit Date/Time: 12/09/23 23:00 Attending Provider: Ralph Sierra Admit Provider: Cyrus Valdez Primary Care Provider: Verónica Benavides Other Providers: Sergio Taylor; Joanna Arias Roshan; [facility]
== END 2023-12-17 14:37 | disposition home health service (06) | DRG 690 ==
LOC: ED 16:18 → 2W 23:00 → SUATTDRO 23:00 → 2W 12-10 00:38

== ENCOUNTER 2024-04-24 10:58 | Inpatient (IN) ==
--- OUTSIDE RECORDS SUMMARY | 2024-04-24 11:07 | External Medical Summary | Summary of Care ---
Author Name Unknown Organization [facility] Address [address] [place] [address] Phone [phone] Care Team Providers Care Water Pollution Control Technician Name Role Phone Verónica Benavides MD Primary Care Provide r Reason for Visit * Reason Onset Date Comments Referral 04/22/2024 Encounter Details Date Type Department Care Team (Late st Contact Info) Description 04/22/2024 Telephone [facility], [place] [address] [place] [address] Sarah Dickerson, BETTY [address] [place] [address] Referral Allergies Active Allergy Reactions Criticality Noted Date Comments Adhesive Tape Medium 01/30/2022 Ibuprofen Hives 01/13/2012 Aspirin Hives,Rash 09/15/2000 Sulfamethoxazole-Trimeth oprim Nausea/vomiting,Othe r (Please comment) 10/27/2020 Dizziness Ciprofloxacin Hcl 06/16/2019 Hoarse, dizzy,disoriented Morphine 09/21/2021 Blacked out Penicillins Hives,Rash 09/15/2000 Prednisone 12/30/2017 Weakness/memory changes/blurred vision documented as of this encounter (statuses as of 04/22/2024) Medications Medication Sig Dispensed Refills Start Date End Date Status STOOL SOFTENER 100 MG PO TABS 3-4 tabs daily as needed Active GLUCOSAMINE CHONDR 500 COMPLEX PO CAPS Take by mouth 2 times a day. Active MAGNESIUM OXIDE 400 MG PO TABS one pill each day 10/20/2014 Active Acetaminophen (APAP) 325 MG Tablet Take 1 Tablet by mouth every 6 hours as needed. Active OneTouch Verio w/Device Kit Use up to 4 times a day E11.9 1 Kit 08/28/2020 Active Cyanocobalamin 1000 MCG Oral Tablet (Cyanocobalamin) Take 1 Tablet by mouth in the morning. 08/08/2021 Active Nystatin 446276 UNIT/GM External Powder (Nystop)Indications: Lydia rash of groin Apply topically to affected area 2 times a day . 60 g 11 01/03/2022 Active Additional Information Patient not taking.Reported on 10/22/2023 Probiotic Acidophilus BioBeads Oral Capsule Take 1 Capsule by mouth every evening. Just with antibiotics Active D-Mannose 500 MG Oral Capsule Take by mouth 2 times a day. 2 caps two times daily Active Vitamin D-3 25 MCG (1000 UT) Oral Capsule Take 1 Capsule by mouth in the morning. Active Bisacodyl 5 MG Oral Tablet Delayed Release Take 2 Tablets by mouth daily as needed for Constipation. Do not use for more than one week. Do not cut, crush or chew 40 Tablet 1 01/24/2023 Active Benzonatate 100 MG Oral Capsule Take 1 Capsule by mouth 3 times a day as needed for Cough. 30 Capsule 1 04/29/2023 Active OneTouch Verio In Vitro Strip (Glucose Blood)Indications:Ty pe 2 diabetes mellitus with stage 3 chronic kidney disease, without long-term current use of insulin ([facility]),Type 2 diabetes mellitus with hemoglobin A1c goal of less than 8.0% ([facility]) TEST UP TO FOUR TIMES DAILY 400 Strip 1 05/30/2023 Active Colchicine 0.6 MG Oral Tablet Take one twice for gout attack 8 Tablet 06/03/2023 Active Promethazine-DM 6.25-15 MG/5ML Oral Syrup Take 5 mL by mouth 4 times a day as needed for Cough. 120 mL 1 06/16/2023 Active Myrbetriq 25 MG Oral Tablet Extended Release 24 Hour (Mirabegron ER) Take 1 Tablet by mouth in the morning. 90 Tablet 3 07/08/2023 Active OneTouch Delica Plus [id number] :Type 2 diabetes mellitus with hemoglobin A1c goal of less than 8.0% ([facility]) Test up to two times daily or as directed by [facility] pharmacist 200 Each 3 07/11/2023 Active Estrogens Conjugated 0.625 MG/GM Vaginal Cream (Premarin) Administer 0.5 g into the vagina every night at bedtime. Pea-sized amount around vulvar area nightly 30 g 5 07/14/2023 Active Levothyroxine Sodium 88 MCG Oral Tablet (Levoxyl)Indications :Hypothyroidism, unspecified type TAKE ONE TABLET BY MOUTH EVERY MORNING 30 MINS PRIOR TO FIRST MEAL OF THE DAY OR OTHER MEDS 90 Tablet 3 08/11/2023 Active Clotrimazole 1 % External Cream (Lotrimin)Indication s:Candidal intertrigo APPLY TO THE AFFECTED AREA(S) TWICE DAILY FOR FOURTEEN DAYS 60 g 2 10/22/2023 Active Additional Information Patient not taking.Reported on 10/22/2023 Potassium Chloride Laura ER 20 MEQ Oral Tablet Extended Release Take 1 Tablet by mouth 2 times a day with morning and evening meals. 180 Tablet 1 11/21/2023 Active DIURETIC TITRATION PLAN If no improvement on day 3, contact [facility] for possible home visit 1 Each 11/28/2023 Active Meclizine HCl 25 MG Oral Tablet (Antivert)Indication s:Vertigo Take 1 tablet by mouth 3 times a day as needed for dizziness 30 Tablet 5 11/28/2023 Active Ondansetron HCl 4 MG Oral Tablet Take 1 Tablet by mouth every 6 hours as needed for Nausea. 20 Tablet 12/03/2023 Active Trulicity 0.75 MG/0.5ML Subcutaneous Solution Pen-injector (Dulaglutide) Inject 0.75 mg under the skin once a week. 2 mL 3 01/31/2024 Active Omeprazole 20 MG Oral Capsule Delayed Release (PriLOSEC) Take 1 Capsule by mouth in the morning. One hour before the first meal of the day.. 90 Capsule 1 02/10/2024 Active Spironolactone 25 MG Oral Tablet (Aldactone)Indicatio ns:Non-ischemic cardiomyopathy (HCC) TAKE 1/2 TABLET BY MOUTH EVERY MORNING 45 Tablet 3 03/03/2024 Active Fosfomycin Tromethamine 3 GM Oral Packet (Monurol) Take 3 g by mouth every 3 days. 3 Packet 03/22/2024 Active Fluorouracil 5 % External Cream (Efudex) Apply to site on right cheek twice daily x 6 weeks 40 g 03/22/2024 Active Torsemide 20 MG Oral Tablet (Demadex)Indications :Heart failure, systolic, due to idiopathic cardiomyopathy (HCC) 60 mg in the morning and 60 mg in the afternoon 03/30/2024 Active Nitrofurantoin Monohyd Macro 100 MG Oral Capsule (Macrobid) Take 1 Capsule by mouth every night at bedtime. 90 Capsule 1 03/30/2024 Active Metoprolol Succinate ER 25 MG Oral Tablet Extended Release 24 Hour (toPROL XL)Indications:Non-i schemic cardiomyopathy (HCC),Coronary artery disease involving [place] coronary artery of [place] heart without angina pectoris,HTN, goal below 140/90 TAKE ONE TABLET BY MOUTH in the evening 90 Tablet 1 04/08/2024 Active Diclofenac Sodium 1 % External Gel (Voltaren) Apply topically to affected area 3 times a day as needed for Pain, Mild. 50 g 3 04/15/2024 Active Phenazopyridine HCl 200 MG Oral Tablet (Pyridium) Take 1 Tablet by mouth 3 times a day as needed for Pain, Severe. After meals for pain with urination 6 Tablet 04/19/2024 Active metOLazone 2.5 MG Oral Tablet (Zaroxolyn) Take one tablet only when directed by clinician. 5 Tablet 04/19/2024 Active documented as of this encounter (statuses as of 04/22/2024) Active Problems Problem Noted Date Diagnosed Date Recurrent UTI (urinary tract infection) 12/17/19 24 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/26/2023 Transient confusion 01/30/2023 Last Assessment & Plan: Patient has been progressively more confused over the last week despite treatment with Keflex 500 mg three times daily for urinary tract infection. Urine still is cloudy. It is possible that the UTI persists. Will do an infectious workup. -BMP, CBC, UA, stool studies Bilateral impacted cerumen 11/29/2022 Last Assessment & Plan: Attempted question ears today with minimal success -prescription for Colace liquid. Ten drops to ears bilaterally daily. Allowed to sit for at least 30 minutes. Flush years afterwards with warm water. Impaired mobility and ADLs 11/12/2022 Ventral hernia [...] Continue synthroid Coronary artery disease invo lving [place] coronary artery of [place] heart without angina pectoris 07/03/2012 Overview: 60% diagonal per catheterization 03/2012 Last Assessment & Plan: Stable. No angina. -continue Toprol and diuretics. Was on lisinopril. Was taken off due to low BP. Allergy to ASA. Aspirin allergy 03/31/2012 LBBB (left bundle branch [...] as of this encounter (statuses as of 04/22/2024) Resolved Problems Problem Noted Date Diagnosed Date Resolved Date Acute cystitis without hematuria 01/24/2023 03/22/2024 Last Assessment & Plan: Pt symptomatic with weakness, dysuria, some nausea, murky urine -Will increase and extend keflex Constipation 11/29/2022 03/22/2024 Last Assessment & Plan: Improving -continue current regimen Stage 3a chronic kidney disease 07/03/2020 10/05/2020 [...] sites 08/19/2012 04/30/2018 Near syncope 03/31/2012 07/28/2015 Exertional dyspnea 03/31/2012 4 Adult body mass index 50.0-59.9 12/20/2010 03/26/2017 [...] as of this encounter (statuses as of 04/22/2024) Immunizations Name Administration Dates Next Due COVID-19 mRNA, LNP-s, No Pre serve, 2-Dose Series (Advestigo) 08/29/2021,10/23/2020,10/02/2020 COVID-19, MRNA-LNP, 23-24, P F, 30 MCG/0.3 mL, 12 YRS AND ABOVE, IM ([employer]) 08/04/2023 Covid-19, Mrna, Lnp-s, Pf, B ivalent, [...] lent, No Preserve, IM 05/25/2017,08/12/2016,07/28/2015 Seasonal Influenza, Trivalen t, (IIV3), with Preserv, (Fluzone) 04/22/2014,05/17/2013,04/29/2012,06/21,05/27/2010,05/31/2009,07/01/2008 ,06/16/2007,08/08/2006 TD - Tetanus/Diptheria (ADULT) 03/29/2008 [...] encounter Miscellaneous Notes * Telephone Encounter - Sarah Dickerson OSA - 04/22/2024 10:01 AM EDT TT Request from Destiny Schultz - to fax OT referral to [facility] at [phone]. documented in this encounter Plan of Treatment Upcoming Encounters Date Type Department Care Team (Late st Contact Info) Description 04/22/2024 1:30 PM EDT Scheduled Telephone [facility] at [address] [place] [address] Coordinator, [place] [address] Ethel [place] [address] 04/23/2024 12:00 PM EDT Scheduled Telephone [facility] [address] [place] [address] Coordinator, [facility] [address] [place] [address] 05/14/2024 7:00 AM EDT Laboratory Lab Mobile Phlebotomy [facility] [address] [facility] [address] [facility] Mobile [facility] Draw [facility] [facility] [address] 05/24/2024 8:30 AM EDT Home Visit [facility], [facility] [address] [facility] [place] [address] Destiny Schultz RN 132 [facility] [place] [address] 10/01/2024 1:00 PM EST Telemedicine Family Medicine [address] [place] [phone] Kusum Jones CRNP [address] [place] [address] [place] [address] 10/13/2024 11:30 AM EST Telemedicine Urology, [facility] 132 [facility] [place] [address] Chandler Pena MD [address] [place] [address] 11/24/2024 1:40 PM EDT Office Visit Dermatology [address] [place] [address] Sheryl Pena PA-C [address] [place] [address] [place] [address] 04/18/2025 1:20 PM EDT Telemedicine Family Medicine [address] [place] [phone] Verónica Benavides MD [address] [place] [address] [place] [address] Health Maintenance Due Date Last Done Comments Zoster Vaccines (1 of 2) 1985 Adult Wellness Visit 09/11/2016 09/11/2015 DXA Scan 04/02/2020 04/02/2017, 12/24, 11/05/2007 Depression Screening 05/24/2020 05/24/2019 Diabetic Foot Exam 11/08/2020 11/09/2019, 0 09/01/2018, 08/28/2017, Additional history exists DTap/Tdap Vaccines (2 - Td or Tdap) 11/16/2023 11/15/2013, 03/29/2008, 03/29/2008 COVID-19 Vaccine ( season) 2023 08/04/2023, 08/02/2022, 08/02/2022, Additional history exists Diabetic Eye Exam 12/22/2023 12/21/2022, , 03/10/2021, Additional history exists Influenza Vaccine (FLU shot) (#1) 2024 06/20/2022, 06/20/2022, 06/29/2021, Additional history exists HbA1c 10/03/2024 04/02/2024, 01/24, 11/01/2022, Additional history exists CKD HGB USE SMARTSET 14826 04/02/202504/02, 04/02/2024, 05/26/2023, Additional history exists CKD PHOS USE SMARTSET 93842 04/02/2025 08/0 04/2024, 02/07/2023, 08/07/2021, Additional history exists TSH 04/02/2025 04/02/2024, 08/0 08/2022, 02/24/2023, Additional history exists Albumin/Creatinine Ratio 04/19/2025 024, 02/07/2023, 01/18/2022, Additional history exists Pneumococcal Vaccine: 65+ Years Completed 03/26/2023, 09/11/2015, 05/25/2008, Additional history exists HPV (Gardasil) Vaccine Aged Out No lo nger eligible based on patient's age to complete this topic Hepatitis B Vaccine Aged Out No longe r eligible based on patient's age to complete this topic MENINGOCOCCAL (MENACTRA/MENVEO) Aged Out No longer eligible based on patient's age to complete this topic documented as of this encounter Medical Devices Not on filedocumented as of this encounter Advance Directives Documents on File Type Date Recorded Patient Control Room Technician Expl anation Advance Directives and Living Will 08/10/2021 ADVANCE DIRECTIVE / LIVING WILL LIVING WILL Healthcare Agents on File Name Relationship [facility] Josselyn Judd Adult Child Health Care Power of Attor nathalie Care Teams Water Pollution Control Technician Relationship Specialty Start Date End Date Verónica Benavides MD [address] [place] [address] [place] [phone] PCP - General Family Medicine 09/16/14 documented as of this encounter
--- OUTSIDE RECORDS SUMMARY | 2024-04-24 11:07 | External Medical Summary | Summary of Care ---
Author Name Unknown Organization [facility] Address [address] [place] [address] Phone [phone] Care Team Providers Care Vocational Examiner Name Role Phone Verónica Benavides MD Primary Care Provide r Reason for Visit * Reason Onset Date Comments [facility]: Maintenance 04/23/2024 Encounter Details Date Type Department Care Team (Late st Contact Info) Description 04/23/2024 12:00 PM EDT Scheduled Telephone [facility], [facility] [address] [facility] [place] [address] Coordinator, [facility] 132 [facility] [place] [address] Allergies Active Allergy Reactions Criticality Noted Date Comments Adhesive Tape Medium 01/30/2022 Ibuprofen Hives 01/13/2012 Aspirin Hives,Rash 09/15/2000 Sulfamethoxazole-Trimeth oprim Nausea/vomiting,Othe r (Please comment) 10/27/2020 Dizziness Ciprofloxacin Hcl 06/16/2019 Hoarse, dizzy,disoriented Morphine 09/21/2021 Blacked out Penicillins Hives,Rash 09/15/2000 Prednisone 12/30/2017 Weakness/memory changes/blurred vision documented as of this encounter (statuses as of 04/23/2024) Medications Medication Sig Dispensed Refills Start Date End Date Status STOOL SOFTENER 100 MG PO TABS 3-4 tabs daily as needed Active GLUCOSAMINE CHONDR 500 COMPLEX PO CAPS Take by mouth 2 times a day. Active MAGNESIUM OXIDE 400 MG PO TABS one pill each day 5 Active Acetaminophen (APAP) 325 MG Tablet Take 1 Tablet by mouth every 6 hours as needed. Active OneTouch Verio w/Device Kit Use up to 4 times a day E11.9 1 Kit 1 Active Cyanocobalamin 1000 MCG Oral Tablet (Cyanocobalamin) Take 1 Tablet by mouth in the morning. 1 Active Nystatin 097300 UNIT/GM External Powder (Nystop)Indications :Lydia rash of [...] or chew 40 Tablet 1 3 Active Benzonatate 100 MG Oral Capsule Take 1 Capsule by mouth 3 times a day as needed for Cough. 30 Capsule 1 3 Active OneTouch Verio In Vitro Strip [...] one twice for gout attack 8 Tablet 3 Active Promethazine-DM 6.25-15 MG/5ML Oral Syrup Take 5 mL by mouth 4 times a day as needed for Cough. 120 mL 1 3 Active Myrbetriq 25 MG Oral Tablet Extended Release 24 Hour (Mirabegron ER) Take 1 Tablet by mouth in the morning. 90 Tablet 3 3 Active OneTouch Delica Plus [id number] s:Type 2 diabetes mellitus with hemoglobin A1c goal of less than 8.0% ([facility]) Test up to two times daily or as directed by [facility] pharmacist 200 Each 3 3 Active Estrogens Conjugated 0.625 MG/GM [...] OTHER MEDS 90 Tablet 3 3 Active Clotrimazole 1 % External Cream (Lotrimin)Indicatio ns:Candidal intertrigo APPLY TO THE AFFECTED AREA(S) TWICE DAILY FOR FOURTEEN DAYS 60 g 2 4 Active Additional Information Patient not taking.Reported on 10/22/2023 Potassium Chloride Laura ER 20 MEQ Oral Tablet Extended Release Take 1 Tablet by mouth 2 times a day with morning and evening meals. 180 Tablet 1 4 Active DIURETIC TITRATION PLAN If no improvement on day 3, contact [facility] for possible home visit 1 Each 4 Active Meclizine HCl 25 MG Oral Tablet (Antivert)Indicatio ns:Vertigo Take 1 tablet by mouth 3 times a day as needed for dizziness 30 Tablet 5 4 Active Ondansetron HCl 4 MG Oral Tablet Take 1 Tablet by mouth every 6 hours as needed for Nausea. 20 Tablet 4 Active Trulicity 0.75 MG/0.5ML Subcutaneous Solution Pen-injector (Dulaglutide) Inject 0.75 mg under the skin once a week. 2 mL 3 4 Active Omeprazole 20 MG Oral Capsule Delayed Release (PriLOSEC) Take 1 Capsule by mouth in the morning. One hour before the first meal of the day.. 90 Capsule 1 4 Active Spironolactone 25 MG Oral Tablet (Aldactone)Indicati ons:Non-ischemic cardiomyopathy (HCC) TAKE 1/2 TABLET BY MOUTH EVERY MORNING 45 Tablet 3 4 Active Fluorouracil 5 % External Cream (Efudex) Apply to site on right cheek twice daily x 6 weeks 40 g 4 Active Torsemide 20 MG Oral Tablet (Demadex)Indication s:Heart failure, systolic, due to idiopathic cardiomyopathy (HCC) 60 mg in the morning and 60 mg in the afternoon 4 Active Nitrofurantoin Monohyd Macro 100 MG Oral Capsule (Macrobid) Take 1 Capsule by mouth every night at bedtime. 90 Capsule 1 4 Active Metoprolol Succinate ER 25 MG Oral Tablet Extended Release 24 Hour (toPROL XL)Indications:Non- ischemic cardiomyopathy (HCC),Coronary artery disease involving [place] coronary artery of [place] heart without angina pectoris,HTN, goal below 140/90 TAKE ONE TABLET BY MOUTH in the evening 90 Tablet 1 4 Active Diclofenac Sodium 1 % External Gel (Voltaren) Apply topically to affected area 3 times a day as needed for Pain, Mild. 50 g 3 4 Active Phenazopyridine HCl 200 MG Oral Tablet (Pyridium) Take 1 Tablet by mouth 3 times a day as needed for Pain, Severe. After meals for pain with urination 6 Tablet 4 Active metOLazone 2.5 MG Oral Tablet (Zaroxolyn) Take one tablet only when directed by clinician. 5 Tablet 4 Active Cefdinir 300 MG Oral Capsule (Omnicef) Take 1 Capsule by mouth in the morning and 1 Capsule before bedtime. Do all this for 7 days. For 7 days. 14 Capsule 4 04/30/20 24 Active Fosfomycin Tromethamine 3 GM Oral Packet (Monurol) Take 3 g by mouth every 3 days. 3 Packet 4 04/23/20 24 Discontinued documented as of this encounter (statuses as of 04/23/2024) Active Problems Problem Noted Date Diagnosed Date [...] carrier 06/29/2021 Last Assessment & Plan: [facility] Triage Call: Reviewed last C&S [...] Continue synthroid Coronary artery disease invo lving [place] coronary artery of [place] heart without angina pectoris 07/03/2012 Overview: 60% [...] as of this encounter (statuses as of 04/23/2024) Resolved Problems Problem Noted Date Diagnosed Date [...] of inactive term DIVERTICULOSIS OF COLON 03/21/2004 0901/2018 Calculus of kidney 09/15/2003 8 Hypercalcemia 01/24/2003 [...] as of this encounter (statuses as of 04/23/2024) Immunizations Name Administration Dates Next Due COVID-19 mRNA, LNP-s, No Pre serve, 2-Dose Series ([employer]) 08/29/2021,10/23/2020,10/02/2020 COVID-19, MRNA-LNP, 23-24, P F, 30 MCG/0.3 mL, 12 YRS AND ABOVE, IM ([facility]) 08/04/2023 Covid-19, Mrna, Lnp-s, Pf, [...] Trivalen t, (IIV3), with Preserv, (Fluzone) 04/22/2014,05/17/2013,04/29/2012,06/21,05/27/2010,05/31/2009,07/01/2008 ,06/16/2007,08/08/2006,06/21/2005,06/25,07/05/2002,06/23/2001 TD - Tetanus/Diptheria (ADULT) 03/29/2008 [...] encounter Miscellaneous Notes * Telephone Encounter - Jacinta Mendoza RN - 04/23/2024 12:42 PM EDT Call placed to pt, spoke with dtr Josselyn, aware [place] [facility] [place] and advice. Will fruit or nut picker and have ptstart cefdinir 300 mg PO BID x 7 days today. Aware to stop nitrofurantoin. Scheduled for f/u call next week. Josselyn asking if nitrofurantoin is to be stopped indefinitely at this time or just while pt on cefdinir? * Addendum Note - Karthikeyan Chaudhari DO - 04/23/2024 11:33 AM EDTAddended by: KARTHIKEYAN CHAUDHARI on: 04/23/2024 11:33 AM Modules accepted: Orders * Telephone Encounter - Karthikeyan Chaudhari DO - 04/23/2024 11:30 AM EDT [facility] Prabhakar [facility] Subprogram: Primary Care at Home Recommendations: 8th urine cx in the 1st 8 months of the year Typically grows [id number] - Proteus (colonization vs real UTI) - will start Cefdinir based on allergies and past sensitivities. I would recommend stopping Nitrofurantoin. This is due to: Proteus isn't tested for sensitivities against it Other sensitivities have been resistant With the pure volume of urine testing this year alone, it's clearly not making an impact. Fewer pills = better. Orders: Plan Cefdinir 300 MG Oral Capsule (Omnicef) To Do: Please see below for follow up items to be completed and correspondence: JUNIOR to Regla's Care Team wafer polishing lead worker Pool please work on the following: contact the caller with advice and orders as above Karthikeyan Chaudhari DO [facility] - [facility] 04/23/2024 Scheduled appointments in the next 60 days: Future Appointments-next 60 days Date/Time Provider Specialty Dept Phone 04/23/2024 12:00 PM Lise Connell [facility] [phone] 05/14/2024 7:00 AM [facility], [facility] Mobile Home Draw Laboratory Processing [phone] 05/24/2024 8:30 AM Destiny Schultz RN [facility] [phone] 10/01/2024 1:00 PM Kusum Jones CRNP Family Medicine [phone] 10/13/2024 11:30 AM Chandler Pena MD Urology [phone] 11/24/2024 1:40 PM (Arrive by 1:25 PM) Sheryl Pena PA-C Dermatology [phone] 04/18/2025 1:20 PM Verónica Benavides MD Family Medicine [phone] * Telephone Encounter - Jacinta Mendoza RN - 04/23/2024 11:08 AM EDT Images from the original note were not included. Urine culture resulted, awaiting sensitivity report. Pt taking pyridium prn for burning. Urine remains cloudy and malodorous. +frequency. documented in this encounter Plan of Treatment Upcoming Encounters Date Type Department Care Team (Late st Contact Info) Description 05/14/2024 7:00 AM EDT Laboratory Lab Mobile Phlebotomy [facility] [address] [facility] [place] [address] [facility], Gml Mobile Home Draw [address] [place] [address] 05/24/2024 8:30 AM EDT [facility] 132 [facility] [place] [address] Destiny Schultz RN 132 [facility] [place] [address] 10/01/2024 1:00 PM EST Telemedicine Family Medicine [address] [phone] Kusum Jones [address] [place] [address] 10/13/2024 11:30 AM EST Telemedicine Urology, [facility] 132 [facility] [place] [address] Chandler ePna MD [address] [place] [address] 11/24/2024 1:40 PM EDT Office Visit Dermatology [address] [place] [address] Sheryl Pena PA-C [address] [place] [address] [place] [address] 04/18/2025 1:20 PM EDT Telemedicine Family Medicine [address] [place] [phone] Verónica Benavides MD [address] [place] [address] [place] [address] Health Maintenance Due Date Last Done Comments [...] Additional history exists CKD HGB USE SMARTSET 85962 04/02/202504/02, 04/02/2024, 05/26/2023, Additional history exists CKD PHOS USE SMARTSET 17830 04/02/2025 08/0 04/2024, 02/07/2023, 08/07/2021, Additional history exists TSH 04/02/2025 04/02/2024, 08/0 08/2022, 02/24/2023, Additional history exists Albumin/Creatinine Ratio 04/19/202504/19/2 024, 02/07/2023, 01/18/2022, Additional history exists Pneumococcal [...] Documents on File Type Date Recorded Patient [employer]er Expl anation Advance Directives and Living Will 08/10/2021 ADVANCE DIRECTIVE / LIVING WILL LIVING WILL Healthcare Agents on File Name Relationship Healthcare Agent [facility] Communication Josselyn Judd Adult Child Health Care Power of Attor nathalie Care Teams Vocational Examiner Relationship Specialty Start Date End Date Verónica Benavides MD [address] [place] [address] [place] [address] PCP - General Family Medicine 09/16/14 documented as of this encounter
--- OUTSIDE RECORDS SUMMARY | 2024-04-24 11:07 | External Medical Summary | Summary of Care ---
Author Name Unknown Organization [facility] Address [address] [place] [address] Phone [phone] Care Team Providers Care Md Physician Dermatologist Name Role Phone Verónica Benavides MD Primary Care Provide r Reason for Visit * Reason Onset Date Comments [facility]: Maintenance 04/23/2024 Encounter Details Date Type Department Care Team (Late st Contact Info) Description 04/23/2024 12:00 PM EDT Scheduled Telephone [facility], [facility] 132 [facility] [place] [address] Coordinator, [facility] 132 [facility] [place] [address] Allergies Active Allergy Reactions Criticality Noted Date [...] mouth in the morning. 1 Active Nystatin 050256 UNIT/GM External Powder (Nystop)Indications :Lydia rash of [...] Tablet 3 3 Active OneTouch Delica Plus [id number] s:Type 2 diabetes mellitus with hemoglobin A1c goal of less than 8.0% ([facility]) Test up to two times daily or as directed by [facility] pharmacist 200 Each 3 3 Active Estrogens [...] If no improvement on day 3, contact 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 Triage Call: Reviewed last C&S [...] Continue synthroid Coronary artery disease invo lving [place] coronary artery of [place] heart without angina pectoris 07/03/2012 Overview: [...] mRNA, LNP-s, No Pre serve, 2-Dose Series ([employer]) 08/29/2021,10/23/2020,10/02/2020 COVID-19, MRNA-LNP, 23-24, P F, 30 MCG/0.3 mL, 12 YRS AND ABOVE, IM ([employer]) 08/04/2023 Covid-19, Mrna, Lnp-s, [...] [facility] Prabhakar [facility] Subprogram: Primary Care at Home Recommendations: 8th [...] up items to be completed and correspondence: CALIXTOI to Regla's Care Team solderer electronic Pool please work on the following: contact the caller with advice and orders as above Karthikeyan Chaudhari DO [facility] - [facility] 04/23/2024 Scheduled appointments in the next 60 days: Future Appointments-next 60 days Date/Time Provider Specialty Dept Phone 04/23/2024 12:00 PM CoordinatorLise [facility] [phone] 05/14/2024 7:00 AM [facility] Mobile Home Draw Laboratory Processing [phone] 05/24/2024 8:30 AM Destiny Schultz RN [facility] [phone] 10/01/2024 1:00 PM Kusum Jones CRNP Family Medicine [phone] 10/13/2024 11:30 AM Chandler Pena MD Urology [phone] 11/24/2024 1:40 PM (Arrive by 1:25 PM) Sheryl Pena PA-C Dermatology [phone] 04/18/2025 1:20 PM Verónica Benavides MD Family Medicine [phone] * Telephone Encounter - Jacinta Mendoza RN [...] AM EDT Laboratory Lab Mobile Phlebotomy [facility] [address] [facility] [place] [address] [facility] Home Draw [address] [facility] [place] [address] 05/24/2024 8:30 AM EDT Home Visit [facility], [facility] [address] [place] [address] Destiny Schultz, RN 132 [facility] [place] [address] 10/01/2024 1:00 PM EST Telemedicine Family Medicine [address] [place] [phone] Kusum Jones CRNP [address] [place] [address] [place] [address] 10/13/2024 11:30 AM EST Telemedicine Urology, [facility] 132 [facility] [place] [address] Chandler Pena MD [address] [place] [address] 11/24/2024 1:40 PM EDT Office Visit Dermatology [address] [place] [address] Sheryl Pena PA-C [address] [place] [address] [place] [address] 04/18/2025 1:20 PM EDT Telemedicine Family Medicine [address] [place] [phone] Verónica Benavides MD [address] [place] [address] [place] [address] Health Maintenance Due Date Last Done Comments [...] Additional history exists CKD HGB USE SMARTSET 35454 04/02/202504/02, 04/02/2024, 05/26/2023, Additional history exists CKD PHOS USE SMARTSET 77799 04/02/2025 08/0 04/2024, 02/07/2023, 08/07/2021, Additional history [...] Documents on File Type Date Recorded Patient Progressive Care Nurse Expl anation Advance Directives and Living Will 08/10/2021 ADVANCE DIRECTIVE / LIVING WILL LIVING WILL Healthcare Agents on File Name Relationship Healthcare Agent [facility] Communication Josselyn [facility] Health Care Power of Attor nathalie Care Teams Md Physician Dermatologist Relationship Specialty Start Date End Date Verónica Benavides MD [address] [place] [address] [place] [phone] PCP - General Family Medicine 09/16/14 documented as of this encounter
--- OUTSIDE RECORDS SUMMARY | 2024-04-24 11:07 | External Medical Summary | Summary of Care ---
Author Name Unknown Organization [facility] Address [address] [place] [address] Phone [phone] Care Team Providers Care Size Worker Name Role Phone Verónica Benavides MD Primary Care Provide r Reason for Visit * Reason Onset Date Comments [facility]: Maintenance 04/22/2024 Encounter Details Date Type Department Care Team (Late st Contact Info) Description 04/22/2024 1:30 PM EDT Scheduled Telephone [facility], [facility] 132 [facility] [place] [address] Coordinator, [facility] 132 [facility] [place] [address] Allergies Active Allergy Reactions Criticality Noted Date [...] mouth in the morning. 08/08/2021 Active Nystatin 066609 UNIT/GM External Powder (Nystop)Indications: Lydia rash of [...] Tablet 3 07/08/2023 Active OneTouch Delica Plus [id number] :Type 2 diabetes mellitus with hemoglobin A1c goal of less than 8.0% ([facility]) Test up to two times daily or as directed by [facility] pharmacist 200 Each 3 07/11/2023 [...] If no improvement on day 3, contact [facility] for possible home visit 1 Each 11/28/2023 [...] 04/30/2018 ACTIVE CASE MANAGEMENT 07/26/200906/11 Overview: Marcela Dixon, RN Arthritis, rheumatoid 06/30/20092011 Overview: Seronegative Type [...] mRNA, LNP-s, No Pre serve, 2-Dose Series (I Had Cancer) 08/29/2021,10/23/2020,10/02/2020 COVID-19, MRNA-LNP, 23-24, P F, 30 MCG/0.3 mL, 12 YRS AND ABOVE, IM ([employer]) 08/04/2023 Covid-19, Mrna, Lnp-s, Pf, B ivalent, 30 Mcg, IM, 12 yrs and above (I Had Cancer) 08/02/2022 Influenza, Whole Virus 08/07/2000 Pneumococcal Conjugate [...] Telephone Encounter - Nigel Cosme MD - 04/22/2024 11:11 AM EDT Awaiting urine culture results and hoping that these are amenable to oral antibiotic therapy. Know this patient well and often requires IV antibiotics. E * Telephone Encounter - Briseyda Rich RN - 04/22/2024 10:53 AM EDT Images from the original note were not included. [facility] Telephonic Nurse Follow-Up Call [facility] Subprogram: Primary Care at Home Follow Up Call Type: 24 hour follow up Acute issue requiring follow-up call: follow up on straight cath urinalysis results from 04/21 Objective: 04/14/2024 3:03 PM 02/20/2024 2:00 PM 02/20/2024 1:59 PM 01/08/2024 4:45 PM 12/19/2023 11:03 AM VITALS ACROSS ENCOUNTERS BP 112/74 136/68 136/68 104/76 118/62 Pulse 68 80 80 72 64 Weight 106.9 kg 105.1 kg 105.1 kg 108 kg BMI 44.52 kg/m2 43.8 kg/m2 43.8 kg/m2 44.97 kg/m2 Remote Patient Monitoring: NONE Oxygen Needs: NO supplemental oxygen needs identified DME Needs: NO DME needs identified Medications: No medication or dose adjustments made during acute episode Subjective: Condition Status: No change in symptoms Current Concerns: Called and spoke with daughter / Josselyn she stated "her mother does not have as much burning on urination because she is taking Pyridium prn." Her urine remains cloudy and foul smelling. Patient still has urinary frequency, but she also had a dose of Metolazone yesterday. Weight yesterday was 239.7 lbs , today 234.6 lbs. Daughter is aware of urinalysis results from yesterday, also aware provider may wait for final culture results before ordering an antibiotic. Preferred pharmacy is [facility] pharmacy in [place]. Daughter aware if antibiotic is ordered today she will be notified otherwise another follow up betsey scheduled for tomorrow. Disposition: Routed to [facility] and/or [facility] Care Team for further advice Future Visits Scheduled: Future Appointments-next 60 days Date/Time Provider Specialty Dept Phone 04/22/2024 1:30 PM Coordinator, Lise Lepe [facility] [phone] 04/23/2024 12:00 PM Coordinator, [facility] [phone] 05/14/2024 7:00 AM [facility] Mobile Home Draw Laboratory Processing [phone] 05/24/2024 8:30 AM Destiny Schultz RN [facility] [phone] 10/01/2024 1:00 PM Kusum Jones CRNP Family Medicine [phone] 10/13/2024 11:30 AM Chandler Pena MD Urology [phone] 11/24/2024 1:40 PM (Arrive by 1:25 PM) Sheryl Pena PA-C Dermatology [phone] 04/18/2025 1:20 PM Verónica Benavides MD Family Medicine [phone] Briseyda Rich RN [facility] Registered Nurse Navigator Triage documented in this encounter Plan of Treatment Upcoming Encounters Date Type Department Care Team (Late st Contact Info) Description 04/23/2024 12:00 PM EDT Scheduled Telephone [facility], [facility] 132 [facility] [place] [address] Coordinator, [facility] [address] [place] [address] 05/14/2024 7:00 AM EDT Laboratory Lab Mobile Phlebotomy [facility] [address] [facility] [place] [address] [facility], [facility] Mobile Home Draw [address] [employer] [place] [address] 05/24/2024 8:30 AM EDT Home Visit [facility], [facility] [address] [place] [address] Destiny Shcultz, POPPY 132 [facility] [place] [address] 10/01/2024 1:00 PM EST Telemedicine Family Medicine [address] [place] [phone] Kusum Jones [address] [place] [address] 10/13/2024 11:30 AM EST Telemedicine Urology, [facility] [address] [place] [address] Chandler Pena MD [address] [place] [address] 11/24/2024 1:40 PM EDT Office Visit Dermatology [address] [place] [address] Sheryl Pena PA-C [address] [place] [address] [place] [address] 04/18/2025 1:20 PM EDT Telemedicine Family Medicine [address] [phone] Verónica Benavides MD [address] [place] [address] [place] [address] Health Maintenance Due Date Last Done Comments [...] Additional history exists CKD HGB USE SMARTSET 73675 04/02/202504/02, 04/02/2024, 05/26/2023, Additional history exists CKD PHOS USE SMARTSET 60967 04/02/2025 08/0 04/2024, 02/07/2023, 08/07/2021, Additional history exists TSH 04/02/2025 04/02/2024, 0808/2022, 02/24/2023, Additional history exists Albumin/Creatinine Ratio 04/19/2025 [...] Documents on File Type Date Recorded Patient Cro Expl anation Advance Directives and Living Will 08/10/2021 ADVANCE DIRECTIVE / LIVING WILL LIVING WILL Healthcare Agents on File Name Relationship Healthcare Agent Relationshi p Communication Josselyn Judd Adult Child Health Care Power of Attor nathalie Care Teams Size Worker Relationship Specialty Start Date End Date Verónica Benavides MD [address] [place] [address] [place] [address] PCP - General Family Medicine 09/16/14 documented as of this encounter
--- OUTSIDE RECORDS SUMMARY | 2024-04-24 11:07 | External Medical Summary | Summary of Care ---
Author Name Unknown Organization [facility] Address [address] [place] [address] Phone [phone] Care Team Providers Care Mingler Operator Name Role Phone Verónica Benavides MD Primary Care Provide r Reason for Visit * Reason Onset Date Comments [facility]: Maintenance 04/22/2024 Encounter Details Date Type Department Care Team (Late st Contact Info) Description 04/22/2024 1:30 PM EDT Scheduled Telephone [facility], [facility] 132 [facility] [place] [address] Coordinator, [facility] 132 [facility] [place] [address] Allergies Active Allergy Reactions Criticality Noted Date [...] mouth in the morning. 08/08/2021 Active Nystatin 269485 UNIT/GM External Powder (Nystop)Indications: Lydia rash of [...] Tablet 3 07/08/2023 Active OneTouch Delica Plus [id number] :Type 2 diabetes mellitus with hemoglobin A1c goal of less than 8.0% ([facility]) Test up to two times daily or as directed by [facility] pharmacist 200 Each 3 [...] If no improvement on day 3, contact [facility] for possible home visit 1 [...] XL)Indications:Non-i schemic cardiomyopathy (HCC),Coronary artery disease involving campo coronary artery of campo heart without angina pectoris,HTN, goal below 140/90 [...] 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 Last Assessment & Plan: [facility] Triage Call: Reviewed last [...] Continue synthroid Coronary artery disease invo lving campo coronary artery of campo heart without angina pectoris 07/03/2012 Overview: 60% [...] mRNA, LNP-s, No Pre serve, 2-Dose Series ([employer]) 08/29/2021,10/23/2020,10/02/2020 COVID-19, MRNA-LNP, 23-24, P F, 30 MCG/0.3 mL, 12 YRS AND ABOVE, IM ([employer]) 08/04/2023 Covid-19, Mrna, Lnp-s, Pf, B ivalent, 30 Mcg, IM, 12 yrs and above ([employer]) 08/02/2022 Influenza, Whole Virus 08/07/2000 Pneumococcal Conjugate [...] [facility] Telephonic Nurse Follow-Up Call [facility] Subprogram: Primary Care at Home [...] before ordering an antibiotic. Preferred pharmacy is [facility] pharmacy in [place]. Daughter aware if antibiotic is ordered today she will be notified otherwise another follow up betsey scheduled for tomorrow. Disposition: Routed to [facility] and/or [facility] Care Team for further advice Future Visits Scheduled: Future Appointments-next 60 days Date/Time Provider Specialty Dept Phone 04/22/2024 1:30 PM Coordinator, Lise Lepe [facility] [phone] 04/23/2024 12:00 PM Coordinator, [facility] [employer] [facility] [phone] 05/14/2024 7:00 AM [facility] Mobile Home Draw Laboratory Processing [phone] 05/24/2024 8:30 AM Destiny Schultz RN [facility] [phone] 10/01/2024 1:00 PM Kusum Jones CRNP Family Medicine [phone] 10/13/2024 11:30 AM Chandler Pena MD Urology [phone] 11/24/2024 1:40 PM (Arrive by 1:25 PM) Sheryl Pena PA-C Dermatology [phone] 04/18/2025 1:20 PM Verónica Benavides MD Family Medicine [phone] Briseyda Rich RN [facility] Registered Nurse Navigator Triage documented in this encounter Plan of Treatment Upcoming Encounters Date Type Department Care Team (Late st Contact Info) Description 04/23/2024 12:00 PM EDT Scheduled Telephone [facility], [facility] 132 [facility] [place] [address] Coordinator, [facility] [address] [place] [address] 05/14/2024 7:00 AM EDT Laboratory Lab Mobile Phlebotomy [facility] [address] [facility] [employer] [facility] [place] [address] [facility], [facility] Mobile Home Draw [address] [place] [address] 05/24/2024 8:30 AM EDT Home Visit [facility], [facility] [address] [place] [address] Destiny Schultz, POPPY 132 [facility] [place] [address] 10/01/2024 1:00 PM EST Telemedicine Family Medicine [address] [place] [phone] Kusum Jones [address] [place] [address] 10/13/2024 11:30 AM EST Telemedicine Urology, [facility] [address] [place] [address] Chandler Pena MD [address] [place] [address] 11/24/2024 1:40 PM EDT Office Visit Dermatology [address] [place] [address] Sheryl Pena PA-C [address] [place] [address] [place] [address] 04/18/2025 1:20 PM EDT Telemedicine Family Medicine [address] [phone] Verónica Benavides MD [address] [place] [address] [place] [address] Health Maintenance Due Date Last Done Comments [...] Additional history exists CKD HGB USE SMARTSET 80400 04/02/202504/02, 04/02/2024, 05/26/2023, Additional history exists CKD PHOS USE SMARTSET 70196 04/02/2025 08/0 04/2024, 02/07/2023, 08/07/2021, Additional history [...] Documents on File Type Date Recorded Patient Smash Fixer Expl anation Advance Directives and Living Will 08/10/2021 ADVANCE DIRECTIVE / LIVING WILL LIVING WILL Healthcare Agents on File Name Relationship Healthcare Agent Relationshi p Communication Josselyn Judd Adult Child Health Care Power of Attor nathalie Care Teams Mingler Operator Relationship Specialty Start Date End Date Verónica Benavides MD [address] [place] [address] [place] [address] PCP - General Family Medicine 09/16/14 documented as of this encounter
--- OUTSIDE RECORDS SUMMARY | 2024-04-24 11:07 | External Medical Summary | Summary of Care ---
Author Name Unknown Organization [facility] Address [address] [place] [address] Phone [phone] Care Team Providers Care Major Donor Coordinator Name Role Phone Verónica Jiang MD Primary Care Provide r Reason for Visit * Reason Comments eRx-Medication Refill Encounter Details Date Type Department Care Team (Late st Contact Info) Description 04/23/2024 Refill [facility], [facility] [address] [facility] [place] [address] Mak Chaudhari DO [address] [place] [facility] [place] [address] Heart failure, systolic, due to idiopathic cardiomyopathy [...] mouth in the morning. 1 Active Nystatin 617106 UNIT/GM External Powder (Nystop)Indications :Lydia rash of [...] Tablet 3 3 Active OneTouch Delica Plus [id number] s:Type 2 diabetes mellitus with hemoglobin A1c goal of less than 8.0% ([facility]) Test up to two times daily or as directed by [facility] pharmacist 200 Each 3 3 [...] If no improvement on day 3, contact [facility] for possible home visit 1 [...] x 6 weeks 40 g 4 Active Nitrofurantoin Monohyd Macro 100 MG Oral Capsule (Macrobid) Take 1 Capsule by mouth every night at bedtime. 90 Capsule 1 4 Active Metoprolol Succinate ER 25 MG Oral Tablet Extended Release 24 Hour (toPROL XL)Indications:Non- ischemic cardiomyopathy (HCC),Coronary artery disease involving [place] coronary artery of [place] heart without angina pectoris,HTN, goal below 140/90 [...] directed by clinician. 5 Tablet 4 Active Torsemide 20 MG Oral Tablet (Demadex)Indication s:Heart failure, systolic, due to idiopathic cardiomyopathy (HCC) take THREE tablets BY MOUTH EVERY MORNING, TWO tablets IN afternoon - additional tablet IN afternoon ONLY if directed by healthcare provider FOR weight gain of THREE lbs OR more 180 Tablet 3 4 Active Cefdinir 300 MG Oral Capsule (Omnicef) Take 1 Capsule by mouth in the morning and 1 Capsule before bedtime. Do all this for 7 days. For 7 days. 14 Capsule 4 04/30/20 24 Active Torsemide 20 MG Oral Tablet (Demadex)Indication s:Heart failure, systolic, due to idiopathic cardiomyopathy (HCC) 60 mg in the morning and 60 mg in the afternoon 4 04/23/20 24 Discontinued documented as of [...] Continue synthroid Coronary artery disease invo lving [place] coronary artery of [place] heart without angina pectoris 07/03/2012 Overview: 60% [...] mRNA, LNP-s, No Pre serve, 2-Dose Series ([employer] app) 08/29/2021,10/23/2020,10/02/2020 COVID-19, MRNA-LNP, 23-24, P F, 30 MCG/0.3 mL, 12 YRS AND ABOVE, IM ([employer]) 08/04/2023 Covid-19, Mrna, Lnp-s, Pf, B ivalent, 30 Mcg, IM, 12 yrs and above (Context app) 08/02/2022 Pneumococcal Conjugate Vacc, 13 Valent (Prevnar) [...] Telephone Encounter - Verónica Jiang MD - 04/23/2024 1:32 PM EDT Signed Prescriptions: Disp Refills Torsemide 20 MG Oral Tablet (Demadex) 180 Ta*3 Sig: take THREE tablets BY MOUTH EVERY MORNING, TWO tablets IN afternoon - additional tablet IN afternoon ONLY if directed by healthcare provider FOR weight gain of THREE lbs OR more Authorizing Provider: VERÓNICA JIANG * Telephone Encounter - Cindy Wilder LPN - 04/23/2024 1:06 PM EDT Did you pend patient's preferred pharmacy and medication before forwarding?yes Pharmacy: [facility], [address] [place] Pending Prescriptions: Disp Refills Torsemide 20 MG Oral Tablet (Demadex) [Ph*180 Ta*3 Sig: take THREE tablets BY MOUTH EVERY MORNING, TWO tablets IN afternoon - additional tablet IN afternoon ONLY if directed by healthcare provider FOR weight gain of THREE lbs OR more Last Visit: Visit date not found (in office), 06/16/2023 (telemedicine) Next Visit: Visit date not found If no future appointments scheduled, and last appointment is greater than a year ago, please schedule patient for a follow-up appointment Last date the medication was ordered: 03/14/24 Is this request for a controlled substance?No Urine Drug Screen:No results found. However, due to the size of the patient record, not all encounters were searched. Please check Results Review for a complete set of results. Patient Phone Numbers Labs: Lab Results Component Value Date/Time CREAT 0.9 04/02/2024 09:53 AM CREAT 1.1 (H) 09/13/2020 12:57 PM POTASSIUM 4.0 04/02/2024 09:53 AM POTASSIUM 4.5 09/13/2020 12:57 PM TSH 6.01 (H) 04/02/2024 09:53 AM TSH 6.83 (H) 07/14/2020 12:47 PM LDL 73 04/02/2024 09:53 AM LDL 90 11/09/2019 03:52 PM LDL NOT APPLICABLE 11/09/2019 03:52 PM ALT 13 07/18/2021 09:24 AM ALT 15 07/07/2020 11:05 AM HGBA1C 7.3 (H) 04/02/2024 09:53 AM HGBA1C 6.4 (H) 06/06/2020 11:14 AM * Telephone Encounter - Fely Portillo [facility] - 04/23/2024 9:29 AM EDT Pending Prescriptions: Disp Refills Torsemide 20 MG Oral Tablet [Pharmacy Med *180 Ta*3 Sig: take THREE tablets BY MOUTH EVERY MORNING, TWO tablets IN afternoon - additional tablet IN afternoon ONLY if directed by healthcare provider FOR weight gain of THREE lbs OR more documented in this encounter Plan of Treatment Upcoming Encounters Date Type Department Care Team (Late st Contact Info) Description 04/30/2024 10:00 AM EDT Scheduled Telephone [facility] [address] [place] [address] Coordinator, [facility] [address] [place] [address] 05/14/2024 7:00 AM EDT Laboratory Lab Mobile Phlebotomy [facility] [address] [address] [facility] [address] [facility] [facility] [address] 05/24/2024 8:30 AM EDT [facility] Visit [facility] [address] [place] [address] Destiny Schultz, RN [address] [place] [address] 10/01/2024 1:00 PM EST Telemedicine Family Medicine [address] [place] [phone] Kusum Jones CRNP [address] [place] [address] [place] [address] 10/13/2024 11:30 AM EST Telemedicine Urology, [facility] [address] [place] [address] Chandler Pena MD [address] [place] [address] 11/24/2024 1:40 PM EDT Office Visit Dermatology [address] [place] [address] Sheryl Pena PA-C [address] [place] [address] [place] [address] 04/18/2025 1:20 PM EDT Telemedicine Family Medicine [address] [place] [phone] Verónica Jiang MD [address] [place] [address] [place] [address] Health Maintenance Due Date Last Done Comments [...] Additional history exists CKD HGB USE SMARTSET 70339 04/02/202504/02, 04/02/2024, 05/26/2023, Additional history exists CKD PHOS USE SMARTSET 89514 04/02/2025 08/0 04/2024, 02/07/2023, 08/07/2021, Additional history [...] Documents on File Type Date Recorded 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
--- OUTSIDE RECORDS SUMMARY | 2024-04-24 11:07 | External Medical Summary | Summary of Care ---
Author Name Unknown Organization [facility] Address [address] [place] [address] Phone [phone] Care Team Providers Care Phd Internship Name Role Phone Verónica Benavides MD Primary Care Provide r Reason for Visit * Reason Onset Date Comments [facility]: Maintenance 04/23/2024 Encounter Details Date Type Department Care Team (Late st Contact Info) Description 04/23/2024 12:00 PM EDT Scheduled Telephone [facility], [facility] 132 [facility] [place] [address] Coordinator, [facility] 132 [facility] [place] [address] Allergies Active Allergy Reactions Criticality Noted Date [...] mouth in the morning. 1 Active Nystatin 569886 UNIT/GM External Powder (Nystop)Indications :Lydia rash of [...] Tablet 3 3 Active OneTouch Delica Plus [id number] s:Type 2 diabetes mellitus with hemoglobin A1c goal of less than 8.0% ([facility]) Test up to two times daily or as directed by [facility] pharmacist 200 Each 3 3 Active Estrogens [...] If no improvement on day 3, contact [facility] for possible home visit 1 Each [...] XL)Indications:Non- ischemic cardiomyopathy (HCC),Coronary artery disease involving [place] coronary artery of [place] heart without angina pectoris,HTN, goal below 140/90 [...] 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 Last Assessment & Plan: [facility] Triage Call: Reviewed last C&S [...] Continue synthroid Coronary artery disease invo lving [place] coronary artery of [place] heart without angina pectoris 07/03/2012 Overview: 60% [...] mRNA, LNP-s, No Pre serve, 2-Dose Series ([employer]) 08/29/2021,10/23/2020,10/02/2020 COVID-19, MRNA-LNP, 23-24, P F, 30 MCG/0.3 mL, 12 YRS AND ABOVE, IM ([employer]) 08/04/2023 Covid-19, Mrna, Lnp-s, Pf, B ivalent, 30 Mcg, IM, 12 yrs and above (Heal[employer]) 08/02/2022 Pneumococcal Conjugate Vacc, 13 Valent (Prevnar) [...] AM EDT Laboratory Lab Mobile Phlebotomy [facility] [address] [place] [address] M[facility], Gml Mobile Home Draw [address] [place] [address] 05/24/2024 8:30 AM EDT [facility] Visit [facility], [facility] [address] [place] [address] Destiny Schultz, POPPY [address] [place] [address] 10/01/2024 1:00 PM EST Telemedicine Family Medicine [address] [place] [phone] Kusum Jones CRNP [address] [place] [address] [place] [address] 10/13/2024 11:30 AM EST Telemedicine Urology, [facility] [address] [place] [address] Chandler Pena MD [address] [place] [address] 11/24/2024 1:40 PM EDT Office Visit Dermatology [address] [place] [address] Sheryl Pena PA-C [address] [place] [address] [place] [address] 04/18/2025 1:20 PM EDT Telemedicine Family Medicine [address] [place] [phone] Verónica Benavides MD [address] [place] [address] [place] [address] Health Maintenance Due Date Last Done Comments [...] Additional history exists CKD HGB USE SMARTSET 80951 04/02/202504/02, 04/02/2024, 05/26/2023, Additional history exists CKD PHOS USE SMARTSET 45366 04/02/2025 08/0 04/2024, 02/07/2023, 08/07/2021, Additional history [...] Documents on File Type Date Recorded Patient Human Resources Mgr Expl anation Advance Directives and Living Will 08/10/2021 ADVANCE DIRECTIVE / LIVING WILL LIVING WILL Healthcare Agents on File Name Relationship Healthcare Agent [facility] Communication Josselyn Judd Adult Child Health Care Power of Attor nathalie Care Teams Phd Internship Relationship Specialty Start Date End Date Verónica Benavides MD [address] [place] [address] [place] [phone] PCP - General Family Medicine 09/16/14 documented as of this encounter
--- OUTSIDE RECORDS SUMMARY | 2024-04-24 11:07 | External Medical Summary | Summary of Care ---
Author Name Unknown Organization [facility] Address [address] [place] [address] Phone [phone] Care Team Providers Care Advertising Account Representative Name Role Phone Verónica Benavides MD Primary Care Provide r Reason for Visit * Reason Onset Date Comments Referral 04/22/2024 Encounter Details Date Type Department Care Team (Late st Contact Info) Description 04/22/2024 Telephone [facility], [facility] [address] [place] [address] Sarah Dickerson, BETTY [address] [place] [address] Referral Allergies Active Allergy Reactions [...] mouth in the morning. 08/08/2021 Active Nystatin 237229 UNIT/GM External Powder (Nystop)Indications: Lydia rash of [...] Tablet 3 07/08/2023 Active OneTouch Delica Plus [id number] :Type 2 diabetes mellitus with hemoglobin A1c goal of less than 8.0% ([facility]) Test up to two times daily or as directed by [facility] pharmacist 200 Each 3 07/11/2023 [...] If no improvement on day 3, contact [facility] for possible home visit 1 [...] XL)Indications:Non-i schemic cardiomyopathy (HCC),Coronary artery disease involving hoh coronary artery of hoh heart without angina pectoris,HTN, goal below 140/90 [...] 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 Last Assessment & Plan: [facility] Triage Call: Reviewed last C&S [...] Continue synthroid Coronary artery disease invo lving hoh coronary artery of hoh heart without angina pectoris 07/03/2012 Overview: 60% [...] mRNA, LNP-s, No Pre serve, 2-Dose Series ([employer]) 08/29/2021,10/23/2020,10/02/2020 COVID-19, MRNA-LNP, 23-24, P F, 30 MCG/0.3 mL, 12 YRS AND ABOVE, IM ([employer] 08/04/2023 Covid-19, Mrna, Lnp-s, Pf, B ivalent, [...] Request from Destiny Schultz - to fax OP referral to Patrick [place] at [phone] Need to call [phone] for an update. documented in this encounter Plan of Treatment Upcoming Encounters Date Type Department Care Team (Late st Contact Info) Description 04/22/2024 1:30 PM EDT Scheduled Telephone [facility], [facility] [address] [place] [address] Coordinator, [facility] [address] [place] [address] 04/23/2024 12:00 PM EDT Scheduled Telephone [facility] [address] [place] [address] Coordinator, [facility] [address] [place] [address] 05/14/2024 7:00 AM EDT Laboratory Lab Mobile Phlebotomy [facility] [address] [facility] [place] [address] [facility], Gml Mobile Home Draw [address] [facility] [place] [address] 05/24/2024 8:30 AM EDT Home Visit [facility], [facility] [address] [place] [address] Destiny Schultz, POPPY 132 [facility] [place] [address] 10/01/2024 1:00 PM EST Telemedicine Family [address] [phone] Kusum Jones CRNP [address] [place] [address] [place] [address] 10/13/2024 11:30 AM EST Telemedicine Urology, [facility] 132 [facility] [place] [address] Chandler Pena MD [address] [place] [address] 11/24/2024 1:40 PM EDT Office Visit Dermatology [address] [place] [address] Sheryl Pena PA-C [address] [place] [address] [place] [address] 04/18/2025 1:20 PM EDT Telemedicine Family Medicine [address] [place] [phone] Verónica Benavides MD [address] [place] [address] [place] [address] Health Maintenance Due Date Last Done Comments [...] Additional history exists CKD HGB USE SMARTSET 40445 04/02/202504/02, 04/02/2024, 05/26/2023, Additional history exists CKD PHOS USE SMARTSET 41325 04/02/2025 08/0 04/2024, 02/07/2023, 08/07/2021, Additional history [...] Documents on File Type Date Recorded Patient Video Manager Expl anation Advance Directives and Living Will 08/10/2021 ADVANCE DIRECTIVE / LIVING WILL LIVING WILL Healthcare Agents on File Name Relationship Healthcare Agent [facility] Communication Josselyn Judd [facility] Health Care Power of Attor nathalie Care Teams Advertising Account Representative Relationship Specialty Start Date End Date Verónica Benavides MD [address] [place] [address] [place] [phone] PCP - General Family Medicine 09/16/14 documented as of this encounter
--- OUTSIDE RECORDS SUMMARY | 2024-04-24 11:08 | External Medical Summary | Summary of Care ---
Author Name Unknown Organization [facility] Address [address] [place] [address] Phone [phone] Care Team Providers Care Lead Developer Name Role Phone Verónica Benavides MD Primary Care Provide r Reason for Visit * Reason Onset Date Comments [facility]: Maintenance 04/21/2024 Encounter Details Date Type Department Care Team (Late st Contact Info) Description 04/21/2024 10:00 AM EDT Scheduled Telephone [facility] [address] [place] [address] Coordinator, [facility] [address] [place] [address] Allergies Active Allergy Reactions Criticality Noted Date Comments Adhesive Tape Medium 01/30/2022 Ibuprofen Hives 01/13/2012 Aspirin Hives,Rash 09/15/2000 Sulfamethoxazole-Trimeth oprim Nausea/vomiting,Othe r (Please comment) 10/27/2020 Dizziness Ciprofloxacin Hcl 06/16/2019 Hoarse, dizzy,disoriented Morphine 09/21/2021 Blacked out Penicillins Hives,Rash 09/15/2000 Prednisone 12/30/2017 Weakness/memory changes/blurred vision documented as of this encounter (statuses as of 04/21/2024) Medications Medication Sig Dispensed Refills Start Date [...] mouth in the morning. 08/08/2021 Active Nystatin 963913 UNIT/GM External Powder (Nystop)Indications: Lydia rash of [...] Tablet 3 07/08/2023 Active OneTouch Delica Plus [id number] :Type 2 diabetes mellitus with hemoglobin A1c goal of less than 8.0% ([facility]) Test up to two times daily or as directed by 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 Last Assessment & Plan: [facility] Triage Call: Reviewed last C&S [...] Continue synthroid Coronary artery disease invo lving tejon coronary artery of tejon heart without angina pectoris 07/03/2012 Overview: 60% [...] as of this encounter (statuses as of 04/21/2024) Resolved Problems Problem Noted Date Diagnosed Date [...] as of this encounter (statuses as of 04/21/2024) Immunizations Name Administration Dates Next Due COVID-19 mRNA, LNP-s, No Pre serve, 2-Dose Series ([employer]) 08/29/2021,10/23/2020,10/02/2020 COVID-19, MRNA-LNP, 23-24, P F, 30 MCG/0.3 mL, 12 YRS AND ABOVE, IM ([employer]) 08/04/2023 Covid-19, Mrna, Lnp-s, Pf, B ivalent, 30 Mcg, IM, 12 yrs and above ([employer]) 08/02/2022 Influenza, Whole Virus 08/07/2000 Pneumococcal Conjugate [...] Telephone Encounter - Hermann Orona MD - 04/21/2024 11:48 AM EDT Urine collections for this patient should only be accepted by catheter. "Clean catch" is not reliable. If pt/family does not follow our advice (taking metolazone), our ability to help her is significantly diminished. Hermann Orona MD, [facility], [facility], FAAFP Remote Medical [facility] ([facility]) [facility] Available on [employer] * Telephone Encounter - Briseyda Rich RN - 04/21/2024 10:15 AM EDT Images from the original note were not included. [facility] Telephonic Nurse Follow-Up Call [facility] Subprogram: Primary Care at Home Follow UP Call Type: 48 hour follow up Acute issue requiring follow-up call: Other: UTI symptoms 04/19 and weight gain 04/20 Objective: 04/14/2024 3:03 PM 02/20/2024 2:00 PM [...] NO DME needs identified Medications: Current DTP: Other: Metolazone 2.5 mg x 1 Subjective: Condition Status: No change in symptoms Current Concerns: Called and spoke with daughter/ Josselyn, she stated "her mother is still miserable with UTI symptoms", she does however have a little less burning on urination since taking Pyridium. Informed daughter urine culture results from today and she may need to collect a new urine specimen. Patients weight was 239.7 lbs today , daughter stated she did not give her mother the Metolazone 2.5 mg yesterday as recommended. Patient received a new bed yesterday and and daughter stated if her mother took the dose of Metolazone yesterday she would need to urinate more frequently and "getting in and out of the new bed wouldbe too much for her." Daughter gave her mother the Metolazone this morning and will monitor her weight.. Disposition: Routed to [facility] and/or [facility] Care Team for further advice Preferred Pharmacy is [facility] in [place] Future Visits Scheduled: Future Appointments-next 60 days Date/Time Provider Specialty Dept Phone 05/14/2024 7:00 AM [facility], Gml Mobile Home Draw Laboratory Processing [phone] 05/24/2024 8:30 AM Destiny Schultz RN [facility] [phone] 10/01/2024 1:00 PM Kusum Jones CRNP Family Medicine [phone] 10/13/2024 11:30 AM Chandler Pena MD Urology [phone] 11/24/2024 1:40 PM (Arrive by 1:25 PM) Sheryl Pena PA-C Dermatology [phone] 04/18/2025 1:20 PM Verónica Benavides MD Family Medicine [phone] Briseyda Rich RN [facility] Registered Nurse Navigator Triage documented in this encounter Plan of Treatment Upcoming Encounters Date Type Department Care Team (Late st Contact Info) Description 05/14/2024 7:00 AM EDT Laboratory Lab Mobile Phlebotomy [facility] [address] [employer] [place] [address] [facility], Gml Mobile Home Draw [address] [employer] [place] [address] 05/24/2024 8:30 AM EDT Home Visit [facility] [address] [place] [address] Destiny Schultz RN 132 [facility] [place] [address] 10/01/2024 1:00 PM EST Telemedicine Family Medicine [address] [place] [phone] Kusum Jones CRNP [address] [place] [address] [place] [address] 10/13/2024 11:30 AM EST Telemedicine Urology, [facility] [place] [address] Chandler Pena MD [address] [place] [address] 11/24/2024 1:40 PM EDT Office Visit Dermatology [address] [place] [address] Sheryl Pena PA-C [address] [place] [address] [place] [address] 04/18/2025 1:20 PM EDT Telemedicine Family Medicine [address] [place] [phone] Verónica Benavides MD [address] [place] [address] [place] [address] Health Maintenance Due Date Last Done Comments [...] Additional history exists CKD HGB USE SMARTSET 98960 04/02/202504/02, 04/02/2024, 05/26/2023, Additional history exists CKD PHOS USE SMARTSET 53913 04/02/2025 08/0 04/2024, 02/07/2023, 08/07/2021, Additional history exists TSH 04/02/2025 04/02/2024, 08/0 08/2022, 02/24/2023, Additional history exists Albumin/Creatinine Ratio 04/19/20252 024, 02/07/2023, 01/18/2022, Additional history exists Pneumococcal [...] Documents on File Type Date Recorded Patient Clinical Resource Coordinator Expl anation Advance Directives and Living Will 08/10/2021 ADVANCE DIRECTIVE / LIVING WILL LIVING WILL Healthcare Agents on File Name Relationship [facility] Child Health Care Power of Attor nathalie Care Teams Lead Developer Relationship Specialty Start Date End Date Verónica Benavides MD [address] [place] [address] [place] [phone] PCP - General Family Medicine 09/16/14 documented as of this encounter
--- OUTSIDE RECORDS SUMMARY | 2024-04-24 11:08 | External Medical Summary | Summary of Care ---
Author Name Unknown Organization [facility] Address [address] [place] [address] Phone [phone] Care Team Providers Care Uke Operator Name Role Phone Verónica Benavides MD Primary Care Provide r Reason for Visit * Reason Onset Date Comments [facility]: Maintenance 04/21/2024 Encounter Details Date Type Department Care Team (Late st Contact Info) Description 04/21/2024 10:00 AM EDT Scheduled Telephone [facility], [place] [address] [place] [address] Coordinator, [facility] [address] [place] [address] Allergies Active Allergy Reactions Criticality Noted Date [...] mouth in the morning. 08/08/2021 Active Nystatin 608561 UNIT/GM External Powder (Nystop)Indications: Lydia rash of [...] Tablet 3 07/08/2023 Active OneTouch Delica Plus [id number] :Type 2 diabetes mellitus with hemoglobin A1c goal of less than 8.0% ([facility]) Test up to two times daily or as directed by [facility] pharmacist 200 Each 3 07/11/2023 [...] If no improvement on day 3, contact [facility] for possible home visit 1 Each 11/28/2023 [...] XL)Indications:Non-i schemic cardiomyopathy (HCC),Coronary artery disease involving wiyot coronary artery of wiyot heart without angina pectoris,HTN, goal below 140/90 [...] 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 Last Assessment & Plan: [facility] Triage Call: Reviewed last C&S [...] Continue synthroid Coronary artery disease invo lving wiyot coronary artery of wiyot heart without angina pectoris 07/03/2012 Overview: 60% [...] mRNA, LNP-s, No Pre serve, 2-Dose Series ([employer]) 08/29/2021,10/23/2020,10/02/2020 COVID-19, MRNA-LNP, 23-24, P F, 30 MCG/0.3 mL, 12 YRS AND ABOVE, IM ([employer]) 08/04/2023 Covid-19, Mrna, Lnp-s, Pf, B ivalent, 30 Mcg, IM, 12 yrs and above ([employer]) 08/02/2022 Influenza, Whole Virus 08/07/2000 Pneumococcal Conjugate [...] Encounter - Briseyda Rich RN - 04/21/2024 12:58 PM EDT Communication Note Name: Regla Castano Situation: 88 year old female complaining of UTI symptoms since 04/19. Burning, increased frequency, weakness, strong urine odor. Urine culture results : Multiple rachid suggest contamination or colonization. Dr. Orona replied "that urine collections for this patient should only be accepted by catheter, clean catch is not reliable." Background: hx HF, CAD, pacemaker, CKD, recurrent UTI's, DM, GERD Assessment: daughter confirmed her mother still has urinary frequency, urine is cloudy and foul smelling, she is exhausted. Pyridium is helping with the burning Recommendation: [facility] RNYENNIFER for Straight Cath urinalysis Care team availability: TT to Destiny MEJIA , she will let me know Briseyda Rich RN [facility] Registered Nurse Navigator Triage * Telephone Encounter - Hermann Orona MD - 04/21/2024 11:48 AM EDT Urine collections for this patient should only be accepted by catheter. "Clean catch" is not reliable. If pt/family does not follow our advice (taking metolazone), our ability to help her is significantly diminished. Hermann Orona MD, [facility], [facility], FAAFP Remote Medical Command ([facility] Available on [employer] * Telephone Encounter - Briseyda Rich RN - 04/21/2024 10:15 AM EDT Images from the original note were not included. [facility] Telephonic Nurse Follow-Up Call [facility] Subprogram: Primary Care at Home Follow UP [...] will monitor her weight.. Disposition: Routed to [facility] and/or [facility] Care Team for further advice Preferred Pharmacy is [facility] in [place] Future Visits Scheduled: Future Appointments-next 60 days Date/Time Provider Specialty Dept Phone 05/14/2024 7:00 AM [facility] Home Draw Laboratory Processing [phone] 05/24/2024 8:30 AM Destiny Schultz, POPPY [facility] [phone] 10/01/2024 1:00 PM Kusum Jones CRNP Family Medicine [phone] 10/13/2024 11:30 AM Chandler Pena MD Urology [phone] 11/24/2024 1:40 PM (Arrive by 1:25 PM) Sheryl Pena PA-C Dermatology [phone] 04/18/2025 1:20 PM Verónica Benavides MD Family Medicine [phone] Briseyda Rich RN [facility] Registered Nurse Navigator Triage documented in this encounter Plan of Treatment Upcoming Encounters Date Type Department Care Team (Late st Contact Info) Description 05/14/2024 7:00 AM EDT Laboratory Lab Mobile Phlebotomy [facility] [address] [place] [address] [facility] Home Draw [address] [place] [address] 05/24/2024 8:30 AM EDT Home Visit [facility] [place], [facility] [address] [place] [address] Destiny Schultz, POPPY [address] [facility] [place] [address] 10/01/2024 1:00 PM EST Telemedicine Family Medicine [address] [place] [phone] Kusum Jones CRNP [address] [place] [address] [place] [address] 10/13/2024 11:30 AM EST Telemedicine Urology, [facility] [address] [place] [address] Chandler Pena MD [address] [facility] [place] [address] 11/24/2024 1:40 PM EDT Office Visit Dermatology [address] [place] [address] Sheryl Pena PA-C [address] [place] [address] [place] [address] 04/18/2025 1:20 PM EDT Telemedicine Family [address] [place] [phone] Verónica Benavides MD [address] [place] [address] [place] [address] Health Maintenance Due Date Last Done Comments Zoster Vaccines (1 of 2) 1985 Adult Wellness Visit 09/11/2016 09/11/2015 DXA Scan 04/02/2020 04/02/2017, /11/2012, 11/05/2007 Depression Screening 05/24/2020 05/24/2019 Diabetic Foot Exam 11/08/2020 11/09/2019, 0 09/01/2018, 08/28/2017, Additional history exists DTap/Tdap Vaccines (2 - Td or Tdap) 11/16/2023 11/15/2013, 03/29/2008, 03/29/2008 COVID-19 Vaccine (6 - 2023-24 season) 2023 08/04/2023, 08/02/2022, 08/02/2022, Additional history exists Diabetic Eye Exam 12/22/2023 12/21/2022, , 03/10/2021, Additional history exists Influenza Vaccine (FLU shot) (#1) 2024 06/20/2022, 06/20/2022, 06/29/2021, Additional history exists HbA1c 10/03/2024 04/02/2024, 01/24, 11/01/2022, Additional history exists CKD HGB USE SMARTSET 57775 04/02/202504/02, 04/02/2024, 05/26/2023, Additional history exists CKD PHOS USE SMARTSET 91051 04/02/2025 08/0 04/2024, 02/07/2023, 08/07/2021, Additional history [...] Documents on File Type Date Recorded Patient Grocery Store Manager Expl anation Advance Directives and Living Will 08/10/2021 ADVANCE DIRECTIVE / LIVING WILL LIVING WILL Healthcare Agents on File Name Relationship [facility] Josselyn Judd Adult Child Health Care Power of Attor nathalie Care Teams Uke Operator Relationship Specialty Start Date End Date Verónica Benavides MD [address] [place] [address] [place] [address] PCP - General Family Medicine 09/16/14 documented as of this encounter
--- OUTSIDE RECORDS SUMMARY | 2024-04-24 11:08 | External Medical Summary | Summary of Care ---
Author Name Unknown Organization [facility] Address [address] [place] [address] Phone [phone] Care Team Providers Care Electroplating Sales Representative Name Role Phone Verónica Benavides MD Primary Care Provide r Reason for Visit * Reason Onset Date Comments Follow Up 04/14/2024 Encounter Details Date Type Department Care Team (Late st Contact Info) Description 04/14/2024 Telephone [facility], [facility] [address] [facility] [place] [address] Destiny Schultz RN [address] [facility] [place] [address] Follow Up Allergies Active Allergy Reactions Criticality Noted Date Comments Adhesive Tape Medium 01/30/2022 Ibuprofen Hives 01/13/2012 Aspirin Hives,Rash 09/15/2000 Sulfamethoxazole-Trimeth oprim Nausea/vomiting,Othe r (Please comment) 10/27/2020 Dizziness Ciprofloxacin Hcl 06/16/2019 Hoarse, dizzy,disoriented Morphine 09/21/2021 Blacked out Penicillins Hives,Rash 09/15/2000 Prednisone 12/30/2017 Weakness/memory changes/blurred vision documented as of this encounter (statuses as of 04/19/2024) Medications Medication Sig Dispensed Refills Start Date [...] mouth in the morning. 08/08/2021 Active Nystatin 959551 UNIT/GM External Powder (Nystop)Indications :Lydia rash of [...] Tablet 3 07/08/2023 Active OneTouch Delica Plus [id number] s:Type 2 diabetes mellitus with hemoglobin A1c [...] 08/11/2023 Active Clotrimazole 1 % External Cream (Lotrimin)Indicatio [...] If no improvement on day 3, contact [facility] for possible home visit 1 [...] 02/10/2024 Active Spironolactone 25 MG Oral Tablet (Aldactone)Indicati [...] 03/22/2024 Active Torsemide 20 MG Oral Tablet (Demadex)Indication [...] XL)Indications:Non- ischemic cardiomyopathy (HCC),Coronary artery disease involving suquamish coronary artery 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 5 Tablet 04/19/2024 Active metOLazone 2.5 MG Oral Tablet (Zaroxolyn) Take one tablet only when directed by clinician. 5 Tablet 02/11/2024 4 Discontinu ed(Refill) Phenazopyridine HCl 200 MG Oral Tablet (Pyridium) Take 1 Tablet by mouth 3 times a day as needed for Pain, Severe. After meals for pain with urination 6 Tablet 03/20/2024 4 Discontinu ed(Refill) documented as of this encounter (statuses as of 04/19/2024) Active Problems Problem Noted Date Diagnosed Date [...] 06/29/2021 Last Assessment & Plan: [facility] Triage Call: Reviewed last C&S [...] Continue synthroid Coronary artery disease invo lving suquamish coronary artery of suquamish heart without angina pectoris 07/03/2012 Overview: 60% [...] as of this encounter (statuses as of 04/19/2024) Resolved Problems Problem Noted Date Diagnosed Date [...] as of this encounter (statuses as of 04/19/2024) Immunizations Name Administration Dates Next Due COVID-19 mRNA, LNP-s, No Pre serve, 2-Dose Series ([employer]) 08/29/2021,10/23/2020,10/02/2020 COVID-19, MRNA-LNP, 23-24, P F, 30 MCG/0.3 mL, 12 YRS AND ABOVE, IM ([employer]) 08/04/2023 Covid-19, Mrna, Lnp-s, Pf, B ivalent, 30 Mcg, IM, 12 yrs and above ([employer]) 08/02/2022 Influenza, Whole Virus 08/07/2000 Pneumococcal Conjugate [...] encounter Miscellaneous Notes * Addendum Note - Murray Smith PA-C - 04/19/2024 10:32 PM EDTAddended by: MURRAY SMITH on: 04/19/2024 10:32 PM Modules accepted: Orders * Telephone Encounter - Destiny Schultz RN - 04/14/2024 4:32 PM EDT Murray, Home visit with Regla today. Josselyn has purchased OTC voltaren gel for Regla for discomfort in legs. Has been effective. She is asking if you could put a script in for Voltaren gel so that it would be cheaper with insurance. Also, Josselyn gave patient a Metolazone on 04/08 for 4lb weight gain(239-240lb range). Patient symptomatic of weakness, SOB- Reports effectiveness. She is asking if the Metolazone could be ordered once weekly for weight gain of 3-5lbs PRN. It has been used sparingly in the past and wants it to continue that way(given approximately once a month).But she would like permission IF patient needs it to admin med. She would communicate to [facility] if shehas had to give it weekly to have labs drawn to monitor kidney function. OR should she continue to give DTP(3 days) and if ineffective call [facility]? Please advise. Thanks! Destiny documented in this encounter Plan of Treatment Upcoming Encounters Date Type Department Care Team (Late st Contact Info) Description 04/21/2024 10:00 AM EDT Scheduled Telephone [facility], [facility] [address] [facility] [place] [address] Coordinator, [facility] [address] [facility] [place] [address] 05/14/2024 7:00 AM EDT Laboratory Lab Mobile Phlebotomy [facility] [address] [facility] [place] [address] [facility] Mobile Home Draw [address] [facility] [place] [address] 05/24/2024 8:30 AM EDT Home Visit [facility] [place], [facility] 132 [facility] [place] [address] Destiny Schultz RN 132 [facility] [place] [address] 10/01/2024 1:00 PM EST Telemedicine Family Medicine [address] [place] [phone] Kusum Jones CRNP [address] [place] [address] [place] [address] 10/13/2024 11:30 AM EST Telemedicine Urology, [facility] [address] [facility] [place] [address] Chandler Pena MD [address] [place] [address] 11/24/2024 1:40 PM EDT Office Visit Dermatology [address] [place] [address] Sheryl Pena PA-C [address] [place] [address] [place] [address] 04/18/2025 1:20 PM EDT Telemedicine Family Medicine [address] [place] [phone] Verónica Benavides MD [address] [place] [address] [place] [address] Health Maintenance Due Date Last Done Comments Zoster Vaccines (1 of 2) 1985 Adult Wellness Visit 09/11/2016 09/11/2015 DXA Scan 04/02/2020 04/02/2017, 12/24, 11/05/2007 Depression Screening 05/24/2020 05/24/2019 Diabetic Foot Exam 11/08/2020 11/09/2019, 0 09/01/2018, 08/28/2017, Additional history exists DTaP,Tdap,and Td Vaccines (2 - Td or Tdap) 11/16/2023 11/15/2013, 03/29/2008, 03/29/2008 COVID-19 Vaccine ( season) 2023 08/04/2023, 08/02/2022, 08/02/2022, Additional history exists Diabetic Eye Exam 12/22/2023 12/21/2022, , 03/10/2021, Additional history exists Albumin/Creatinine Ratio 02/08/2024 023, 01/18/2022, 12/23/2017, Additional history exists Influenza Vaccine (FLU shot) (#1) 2024 06/20/2022, 06/20/2022, 06/29/2021, Additional history exists HbA1c 10/03/2024 04/02/2024, 06/2 , 11/01/2022, Additional history exists CKD HGB USE SMARTSET 22455 04/02/202504/02, 04/02/2024, 05/26/2023, Additional history exists CKD PHOS USE SMARTSET 79162 04/02/2025 08/0 04/2024, 02/07/2023, 08/07/2021, Additional history exists TSH 04/02/2025 04/02/2024, 080 08/2022, 02/24/2023, Additional history exists Pneumococcal Vaccine: 65+ Years [...] Documents on File Type Date Recorded Patient Cloth Dyer Expl anation Advance Directives and Living Will 08/10/2021 ADVANCE DIRECTIVE / LIVING WILL LIVING WILL Healthcare Agents on File Name Relationship Healthcare Agent [facility] Communication Josselyn Judd Adult Child Health Care Power of Attor nathalie Care Teams Electroplating Sales Representative Relationship Specialty Start Date End Date Verónica Benavides MD [address] [place] [address] [place] [address] PCP - General Family Medicine 09/16/14 documented as of this encounter
--- OUTSIDE RECORDS SUMMARY | 2024-04-24 11:08 | External Medical Summary ---
Author Name Unknown Address Unknown Organization K01:[facility] - [address] [facility] [place]. [place] [id number] Laboratory Report Ordering Provider Test Date Status SARAH GAO 04/21/2024 14:43:51 Preliminary Observation Date Value Abnormality Reference (Units) Status Bacteria identified in Specimen by Culture 04/21/2024 14:43:51 [id number]^NON LACTOSE FERMENTING GRAM NEGATIVE BACILLI Abnormal Preliminary >100,000 colonies/mL Non lac tose fermenting gram negative bacilli
Test: Culture, Urine, Quantitative
Specimen Source: Urine, Catheter
Specimen Type: Urine
Specimen Date: 04/21/2024 1443
Result Date: 04/23/2024 0842
Result Status: Preliminary result
Abnormal: Yes
Resulting Lab: [facility]
[address]
[facility] [address]

CULTURE

>100,000 colonies/mL Non lactose fermenting gram negative bacilli (Abnormal)

null Performing Location [facility] - [address] [facility] [place]. [facility] [address]
--- OUTSIDE RECORDS SUMMARY | 2024-04-24 11:08 | External Medical Summary | Summary of Care ---
Author Name Unknown Organization [facility] Address [address] [place] [address] Phone [phone] Care Team Providers Care Sourcer Name Role Phone Verónica Benavides MD Primary Care Provide r Reason for Visit * Reason Onset Date Comments [facility]: Maintenance 04/20/2024 Encounter Details Date Type Department Care Team (Late st Contact Info) Description 04/20/2024 Telephone [facility], [facility] [address] [place] [id number] Janiya Cárdenas RN [address] [place] [address] [facility]: Maintenance Allergies Active Allergy Reactions Criticality Noted Date Comments Adhesive Tape Medium 01/30/2022 Ibuprofen Hives 01/13/2012 Aspirin Hives,Rash 09/15/2000 Sulfamethoxazole-Trimeth oprim Nausea/vomiting,Othe r (Please comment) 10/27/2020 Dizziness Ciprofloxacin Hcl 06/16/2019 Hoarse, dizzy,disoriented Morphine 09/21/2021 Blacked out Penicillins Hives,Rash 09/15/2000 Prednisone 12/30/2017 Weakness/memory changes/blurred vision documented as of this encounter (statuses as of 04/20/2024) Medications Medication Sig Dispensed Refills Start Date [...] mouth in the morning. 08/08/2021 Active Nystatin 660426 UNIT/GM External Powder (Nystop)Indications: Lydia rash of [...] Tablet 3 07/08/2023 Active OneTouch Delica Plus [id number] :Type 2 diabetes mellitus with hemoglobin A1c goal of less than 8.0% ([facility]) Test up to two times daily or as directed by [facility] pharmacist 200 Each 3 [...] If no improvement on day 3, contact [facility] for possible home visit 1 Each [...] XL)Indications:Non-i schemic cardiomyopathy (HCC),Coronary artery disease involving dot lake coronary artery of [place] lake heart without angina pectoris,HTN, goal below [...] as of this encounter (statuses as of 04/20/2024) Active Problems Problem Noted Date Diagnosed Date [...] 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 Last Assessment & Plan: [facility] Triage Call: Reviewed last C&S - [...] Continue synthroid Coronary artery disease invo lving [place] coronary artery of [place] heart without angina pectoris 07/03/2012 Overview: [...] as of this encounter (statuses as of 04/20/2024) Resolved Problems Problem Noted Date Diagnosed Date [...] as of this encounter (statuses as of 04/20/2024) Immunizations Name Administration Dates Next Due COVID-19 mRNA, LNP-s, No Pre serve, 2-Dose Series ([employer]) 08/29/2021,10/23/2020,10/02/2020 COVID-19, MRNA-LNP, 23-24, P F, 30 MCG/0.3 mL, 12 YRS AND ABOVE, IM ([employer]) 08/04/2023 Covid-19, Mrna, Lnp-s, Pf, B ivalent, 30 Mcg, IM, 12 yrs and above ([employer]) 08/02/2022 Pneumococcal Conjugate Vacc, 13 Valent (Prevnar) [...] encounter Miscellaneous Notes * Telephone Encounter - Janiya Cárdenas RN - 04/20/2024 10:10 AM EDT Images from the original note were not included. [facility] at Home Telephonic Nurse Follow-Up Call [facility] Subprogram: Primary Care at Home Follow Up Call Type: 24 hour follow up Acute issue requiring follow-up call: Other: UTI Objective: 04/14/2024 3:03 PM 02/20/2024 2:00 PM [...] Medications: Current DTP: Other: Metolazone 2.5 mg x1 Subjective: Condition Status: New symptoms Current Concerns: Pt's dtr states that the pt continues to have burning on urination and frequency. UTI results pending. Albumin/creatine ratio 194 Dtr reports that the pt is having new symptoms. Reports that she has been having steady weight gainover the past week. Weights: 04/13 234lbs 04/14 235.6 lbs 04/15 236.5 lbs 04/16- 237.0 lbs 04/19 237.4 lbs 04/20 239.1 lbs Dtr states that the pt is more SOB than baseline, legs very swollen and heavy, new cough at night and increased fatigue Advised dtr to start pt's DTP taking the Metolazone since the pt is already taking Torsemide 60 mg BID daily as her regular dose. Will send to pt's care team to update pt's DTP since change in diuretic dosage. Disposition: Routed to [facility] and/or [facility] Care Team for further advice and Follow up call scheduled for tomorrow with [facility] Motivational Speaker Future Visits Scheduled: Future Appointments-next 60 days Date/Time Provider Specialty Dept Phone 04/21/2024 10:00 AM Lise Connell [facility] [phone] 05/14/2024 7:00 AM [facility] Mobile Home Draw Laboratory Processing [phone] 05/24/2024 8:30 AM Destiny Schultz RN [facility] [phone] 10/01/2024 1:00 PM Kusum Jones CRNP Family Medicine [phone] 10/13/2024 11:30 AM Chandler Pena MD Urology [phone] 11/24/2024 1:40 PM (Arrive by 1:25 PM) Sheryl Pena PA-C Dermatology [phone] 04/18/2025 1:20 PM Verónica Benavides MD Family Medicine [phone] Janiya Cárdenas, POPPY documented in this encounter Plan of Treatment Upcoming Encounters Date Type Department Care Team (Late st Contact Info) Description 04/21/2024 10:00 AM EDT Scheduled Telephone [facility], [address] [place] [address] Coordinator, [facility] [place] [address] [facility] [place] [address] 05/14/2024 7:00 AM EDT Laboratory Lab Mobile Phlebotomy [facility] [address] [facility] [place] [address] [facility], [facility] Mobile Home Draw [address] [facility] [place] [address] 05/24/2024 8:30 AM EDT Home Visit [facility], [facility] [address] [facility] [place] [address] Destiny Schultz RN 132 [facility] [place] [address] 10/01/2024 1:00 PM EST Telemedicine Family [address] [place] [phone] Kusum Jones CRNP [address] [place] [address] [place] [address] 10/13/2024 11:30 AM EST Telemedicine Urology, [facility] [address] [facility] [place] [address] Chandler Pena MD [address] [place] [address] 11/24/2024 1:40 PM EDT Office Visit Dermatology [address] [place] [address] Sheryl ePna PA-C [address] [place] [address] [place] [address] 04/18/2025 1:20 PM EDT Telemedicine Family Medicine [address] [place] [phone] Verónica Benavides MD [address] [place] [address] [place] [address] Health Maintenance Due Date Last Done Comments [...] Additional history exists CKD HGB USE SMARTSET 88135 04/02/202504/02, 04/02/2024, 05/26/2023, Additional history exists CKD PHOS USE SMARTSET 41830 04/02/2025 08/0 04/2024, 02/07/2023, 08/07/2021, Additional history [...] on File Type Date Recorded 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
--- OUTSIDE RECORDS SUMMARY | 2024-04-24 11:08 | External Medical Summary ---
Author Name Unknown Address Unknown Organization K01:[facility] [place] [address] [facility] [address] Laboratory Report Ordering Provider Test Date Status SARAH GAO 04/21/2024 14:43:51 Final Observation Date Value Abnormality Reference (Units) Status Color of Urine by Auto 04/21/2024 14:43:51 Yellow Colorless, Light Yellow, Yellow, Dark Yellow Final Clarity, Urine 04/21/2024 14:43:51 Slightly Cloudy Abnormal Clear Final Glucose [Mass/volume] in Urine by Automated test strip 04/21/2024 14:43:51 Negative Negative (mg/dL) Final Bilirubin.total [Presence] in Urine by Automated test strip 04/21/2024 14:43:51 Negative Negative Final Ketones [Mass/volume] in Urine by Automated test strip 04/21/2024 14:43:51 Negative Negative (mg/dL) Final Specific gravity, Urine 04/21/2024 14:43:51 1.008 1.003-1.030 Final Hemoglobin [Presence] in Urine by Automated test strip 04/21/2024 14:43:51 Trace Abnormal Negative Final pH, Urine 04/21/2024 14:43:51 8.0 Above high normal 5.0-7.5 (Units) Final Protein [Mass/volume] in Urine by Automated test strip 04/21/2024 14:43:51 Trace Abnormal Negative (mg/dL) Final Urobilinogen [Mass/volume] in Urine by Automated test strip 04/21/2024 14:43:51 Normal Normal (mg/dL) Final Nitrite [Presence] in Urine by Automated test strip 04/21/2024 14:43:51 Negative Negative Final Leukocyte esterase [Presence] in Urine by Automated test strip 04/21/2024 14:43:51 Large Abnormal Negative Final RBC, Urine 04/21/2024 14:43:51 0-2 0-2 (/HPF) Final WBC, Urine 04/21/2024 14:43:51 50+ Abnormal 0-2 (/HPF) Final Bacteria [#/area] in Urine sediment by Microscopy high power field 04/21/2024 14:43:51 >200 Abnormal 0-25 (/HPF) Final CULTURE, URINE - [facility] 04/21/2024 14:43:51 Final Quantitative urine culture t o be performed Performing Location [facility] [place] [address] Emily Padilla. [facility] [address]
--- OUTSIDE RECORDS SUMMARY | 2024-04-24 11:08 | External Medical Summary | Summary of Care ---
Author Name Unknown Organization [facility] Address [address] [place] [address] Phone [phone] Care Team Providers Care Inflated Ball Molder Name Role Phone Verónica Benavides MD Primary Care Provide r Reason for Visit * Reason Onset Date Comments [facility]: Maintenance 04/21/2024 Encounter Details Date Type Department Care Team (Latest Contact Info) Description 04/21/2024 10:00 AM EDT Scheduled Telephone [facility], [place] [address] [place] [address] Coordinator, [facility] [address] [place] [address] Acute cystitis without hematuria* Allergies Active Allergy Reactions Criticality Noted Date [...] mouth in the morning. 08/08/2021 Active Nystatin 325381 UNIT/GM External Powder (Nystop)Indications: Lydia rash of [...] use of insulin ([facility]),Type 2 diabetes mellitus with hemoglobin A1c goal of less than 8.0% ([facility]) TEST UP TO FOUR TIMES DAILY 400 [...] Tablet 3 07/08/2023 Active OneTouch Delica Plus [id number] :Type 2 diabetes mellitus with hemoglobin A1c goal of less than 8.0% ([facility]) Test up to two times daily or as directed by [facility] pharmacist 200 Each 3 07/11/2023 Active [...] If no improvement on day 3, contact [facility] for possible home visit 1 [...] mRNA, LNP-s, No Pre serve, 2-Dose Series ([employer]) 08/29/2021,10/23/2020,10/02/2020 COVID-19, MRNA-LNP, 23-24, P F, 30 MCG/0.3 mL, 12 YRS AND ABOVE, IM ([employer] Daily[employer]acul[facility]) 08/04/2023 Covid-19, Mrna, Lnp-s, Pf, B ivalent, [...] encounter Miscellaneous Notes * Addendum Note - Rosendo Dailey RN - 04/21/2024 1:46 PM EDT Addended by: ROSENDO DAILEY on: 04/21/2024 01:46 PM Modules accepted: Orders * Telephone Encounter - Rosendo Dailey RN - 04/21/2024 12:58 PM EDT Images from the original note were not included. Communication Note Name: Regla Castano Situation: 88 [...] Pyridium is helping with the burning Recommendation: [facility] RNCM HV for Straight Cath urinalysis Care team availability: Destiny Lasodalysdana RNCM has availability today Then this note was in chart from Dr. Pena Sent TT to Dr. Orona to check if a straight cath urine is needed He replied to check with Dr. Pena TT to Dr. Chandler Pena , he replied if she is sympathetic sure. Called daughter/ Josselyn back, she states her mother is symptomatic for a UTI, she has urinary frequency, urine is cloudy and foul smelling, her mother is exhausted Daughter aware Destiny POPPYCM will have HV today for straight cath urine Urinalysis , reflex to culture , not for neutropenic patients ordered in [facility] Follow up phone calls scheduled next [address] [facility] Registered Nurse Navigator Triage * Telephone Encounter - Hermann Orona MD - 04/21/2024 11:48 AM EDT Urine collections for this patient should only be accepted by catheter. "Clean catch" is not reliable. If pt/family does not follow our advice (taking metolazone), our ability to help her is significantly diminished. Hermann Orona MD, [facility], [facility], [employer] ([facility]) [facility] Available on [email or web address] * Telephone Encounter - Rosendo Dailey RN - 04/21/2024 10:15 AM EDT Images from the original note were not included. [facility] Telephonic Nurse Follow-Up Call [facility] Subprogram: Primary Care at Home Follow UP [...] will monitor her weight.. Disposition: Routed to [facility] and/or [facility] at Home Care Team for further advice Preferred Pharmacy is [facility] in [place] Future Visits Scheduled: Future Appointments-next 60 days Date/Time Provider Specialty Dept Phone 05/14/2024 7:00 AM Amarilis, [facility] Draw Laboratory Processing [phone] 05/24/2024 8:30 AM Destiny Schultz RN [facility] [phone] 10/01/2024 1:00 PM Kusum Jones CRNP Family Medicine [phone] 10/13/2024 11:30 AM Chandler ePna MD Urology [phone] 11/24/2024 1:40 PM (Arrive by 1:25 PM) Sheryl Pena PA-C Dermatology [phone] 04/18/2025 1:20 PM Verónica Benavides MD Family Medicine [phone] [facility] Registered Nurse Navigator Triage documented in this encounter Plan of Treatment Upcoming Encounters Date Type Department Care Team (Late st Contact Info) Description 05/14/2024 7:00 AM EDT Laboratory Lab Mobile Phlebotomy [facility] [address] [place] [address] M[facility], G[facility] Mobile Home Draw [address] [place] [address] 05/24/2024 8:30 AM EDT [facility], [facility] 132 [facility] [place] [address] Destiny Schultz RN 132 [facility] [place] [address] 10/01/2024 1:00 PM EST Telemedicine Family Medicine [address] [place] [phone] Kusum Jones [address] [place] [address] 10/13/2024 11:30 AM EST Telemedicine Urology, [facility] 132 [facility] [place] [address] Chandler Pena MD [address] [place] [address] 11/24/2024 1:40 PM EDT Office Visit Dermatology [address] [place] [address] Sheryl Pena PA-C [address] [place] [address] [place] [address] 04/18/2025 1:20 PM EDT Telemedicine Family Medicine [address] [place] [phone] Verónica Benavides MD [address] [place] [address] [place] [address] Scheduled Orders Name Type Priority Associated Diagnoses Orde r Schedule URINALYSIS, REFLEX TO CULTURE (NOT FOR NEUTROPENIC PATIENTS) Lab Routine Acute cystitis without hematuria Expected: 04/21/2024, Expires: 04/21/2025 Health Maintenance Due Date Last Done Comments [...] Additional history exists CKD HGB USE SMARTSET 60275 04/02/202504/02, 04/02/2024, 05/26/2023, Additional history exists CKD PHOS USE SMARTSET 54558 04/02/2025 08/04/2024, 02/07/2023, 08/07/2021, Additional history exists TSH 04/02/2025 [...] Primary Acute cystitis documented in this encounter Advance Directives Documents on File Type Date Recorded 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
--- OUTSIDE RECORDS SUMMARY | 2024-04-24 11:08 | External Medical Summary | Summary of Care ---
Author Name Unknown Organization [facility] Address [address] [place] [address] Phone [phone] Care Team Providers Care Livestock Haulier Name Role Phone Verónica Benavides MD Primary Care Provide r Reason for Visit * Reason Onset Date Comments Follow Up 04/21/2024 Encounter Details Date Type Department Care Team (Late st Contact Info) Description 04/21/2024 Telephone [facility], [facility] [address] [facility] [place] [address] Destiny cShultz RN [address] [facility] [place] [address] Follow Up Allergies Active Allergy Reactions Criticality [...] mouth in the morning. 08/08/2021 Active Nystatin 842009 UNIT/GM External Powder (Nystop)Indications: Lydia rash of [...] Tablet 3 07/08/2023 Active OneTouch Delica Plus [id number] :Type 2 diabetes mellitus with hemoglobin A1c goal of less than 8.0% ([facility]) Test up to two times daily or as directed by [facility] pharmacist 200 Each 3 07/11/2023 [...] If no improvement on day 3, contact [facility] for possible home visit 1 Each 11/28/2023 [...] XL)Indications:Non-i schemic cardiomyopathy (HCC),Coronary artery disease involving [place] coronary artery of [place] heart without angina pectoris,HTN, goal below 140/90 [...] Continue synthroid Coronary artery disease invo lving [place]-apache coronary artery of [place] heart without angina pectoris 07/03/2012 Overview: 60% [...] mRNA, LNP-s, No Pre serve, 2-Dose Series ([employer]) 08/29/2021,10/23/2020,10/02/2020 COVID-19, MRNA-LNP, 23-24, P F, 30 MCG/0.3 mL, 12 YRS AND ABOVE, IM ([employer]-ComirnatDocalytics) 08/04/2023 Covid-19, Mrna, Lnp-s, Pf, B ivalent, [...] Telephone Encounter - Destiny Schultz RN - 04/21/2024 4:[address] Benavides, Patient seen today. Family has bought a new bed(UP bed [place] [facility] [employer]) for patient and they are having difficulty getting patient in and out. Daughter requesting Home health OT referral to assist with transfers to bed for herself and caregivers. Will you please place there referral and include me when signed so I can assist with getting therapy in there as soon as possible? Thank you! Destiny documented in this encounter Plan of Treatment Upcoming Encounters Date Type Department Care Team (Late st Contact Info) Description 04/22/2024 1:30 PM EDT Scheduled Telephone [facility], [facility] [address] [place] [address] Coordinator, [facility] [address] [place] [address] 04/23/2024 12:00 PM EDT Scheduled Telephone [facility], [facility] [address] [place] [address] Coordinator, [facility] [address] [place] [address] 05/14/2024 7:00 AM EDT Laboratory Lab Mobile Phlebotomy [facility] [address] [facility] [place] [address] [facility], Gml Mobile Home Draw [address] [facility] [place] [address] 05/24/2024 8:30 AM EDT Home Visit [facility], [facility] [place] [address] Destiny Schultz RN 132 [facility] [place] [address] 10/01/2024 1:00 PM EST Telemedicine Family [address] [phone] Kusum Jones CRNP [address] [place] [address] [place] [address] 10/13/2024 11:30 AM EST Telemedicine Urology, [facility] 132 [facility] [place] [address] Chandler Pena MD [address] [place] [address] 11/24/2024 1:40 PM EDT Office Visit Dermatology [address] [place] [address] Sheryl Pena PA-C [address] [place] [address] [place] [address] 04/18/2025 1:20 PM EDT Telemedicine Family Medicine [address] [place] [phone] Verónica Benavides MD [address] [place] [address] [place] [address] Health Maintenance Due Date Last Done Comments [...] Additional history exists CKD HGB USE SMARTSET 43511 04/02/202504/02, 04/02/2024, 05/26/2023, Additional history exists CKD PHOS USE SMARTSET 37532 04/02/2025 08/0 04/2024, 02/07/2023, 08/07/2021, Additional history [...] Documents on File Type Date Recorded 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 Health Care Power of Attor nathalie Care Teams Livestock Haulier Relationship Specialty Start Date End Date Verónica Benavides MD [address] [place] [address] [place] [address] PCP - General Family Medicine 09/16/14 documented as of this encounter
--- OUTSIDE RECORDS SUMMARY | 2024-04-24 11:08 | External Medical Summary | Summary of Care ---
Author Name Unknown Organization [facility] Address [address] [place] [address] Phone [phone] Care Team Providers Care Application Architect Name Role Phone Verónica Jiang MD Primary Care Provide r Reason for Referral * Evaluate & Treat - Unlimited Visits (Within 10 days (routine)) - Authorized Specialty Diagnoses / Procedures Referred By Contjoce vaz Referred To Contact HOME CARE / Home Care Diagnoses Heart failure, systolic, due to idiopathic cardiomyopathy (HCC) Lymphedema of both lower extremities Impaired mobility and ADLs Verónica Jiang MD [address] [place] [address] [place] [address] Referral ID Status Reason Start Date Expiration Date Visits Requested Visits Authorized [id number] Authorized Specialty Services Required 04/22/2024 999 999 Question Answer Referral Priority Within 10 days (routine) Where should this appointment be scheduled? [facility] Comments Documentation of Ifba-an-Fzid Encounter Addendum Patient Name: Regla Castano I certify that this patient is under my care and that I, or a nurse practitioner or physician's client account assistant working with me, had a yksm-ms-zobr encounter that meets the physician yocb-qu-ewta encounter requirements with this patient on: 03/30/2024 The encounter with the patient was in whole, or in part, for the following medical condition, which is the primary reason for home health care (List medical condition): ADL dysfunction I certify that, based on my findings, the following services are medically necessary home health services: Physical Therapy and Occupational Therapy To provide the following care/treatments: (All hospitalists not following the patient after discharge should complete this section): Assistance with transfers in and out of bed Primary Care Physician to follow home care plan of care after discharge: Kennedy My clinical findings support the need for the above services because: Patient is debilitated and family/caregiver are having difficulty transferring her in and out of new bed Further, I certify that my clinical findings support that this patient is homebound (i.e. Absences from home require considerable and taxing effort and are for medical reasons or advent services or infrequently or of short duration when for other reason) because: Patient is debilitated and requires taxing effort to leave the house Physician Signature: Date of Signature: Physician Printed Name: Verónica Jiang MD Reason for Visit * Reason Onset Date Comments Follow Up 04/21/2024 Encounter Details Date Type Department Care Team (Late st Contact Info) Description 04/21/2024 Telephone [facility], [facility] [place] [address] Destiny Schultz, POPPY [address] [place] [address] Follow Up Allergies Active Allergy Reactions Criticality [...] mouth in the morning. 08/08/2021 Active Nystatin [id number] UNIT/GM External Powder (Nystop)Indications: Lydia rash of [...] goal of less than 8.0% ([facility]) TEST UP TO FOUR TIMES DAILY 400 [...] Tablet 3 07/08/2023 Active OneTouch Delica Plus [id number] :Type 2 diabetes mellitus with hemoglobin A1c goal of less than 8.0% ([facility]) Test up to two times daily or as directed by [facility] pharmacist 200 Each 3 07/11/2023 Active [...] If no improvement on day 3, contact [facility] for possible home visit 1 [...] XL)Indications:Non-i schemic cardiomyopathy (HCC),Coronary artery disease involving [place] coronary artery of [place] heart without angina pectoris,HTN, goal below 140/90 [...] Continue synthroid Coronary artery disease invo lving [place] coronary artery of [place] heart without angina pectoris 07/03/2012 Overview: 60% [...] mRNA, LNP-s, No Pre serve, 2-Dose Series ([employer]) 08/29/2021,10/23/2020,10/02/2020 COVID-19, MRNA-LNP, 23-24, P F, 30 MCG/0.3 mL, 12 YRS AND ABOVE, IM ([employer]irnat[employer]obucket) 08/04/2023 Covid-19, Mrna, Lnp-s, Pf, B ivalent, 30 Mcg, IM, 12 yrs and above (Pop[employer]) 08/02/2022 Influenza, Whole Virus 08/07/2000 Pneumococcal Conjugate [...] encounter Miscellaneous Notes * Addendum Note - Verónica Jiang MD - 04/22/2024 8:54 AM EDTAddended by: VERÓNICA JIANG on: 04/22/2024 08:54 AM Modules accepted: Orders * Telephone Encounter - Verónica Jiang MD - 04/22/2024 8:53 AM EDT The order is in * Telephone Encounter - Destiny Schultz RN - 04/21/2024 4:[address] Jiang, Patient seen today. Family has bought a new bed(UP bed [place] [facility] [employer]) for patient and they are [...] Scheduled Telephone [facility], [facility] [address] [place] [address] Coordinator, [facility] [address] [place] [address] 04/23/2024 12:00 PM EDT Scheduled Telephone [facility], [facility] [address] [place] [address] Coordinator, [facility] [address] [place] [address] 05/14/2024 7:00 AM EDT Laboratory Lab Mobile Phlebotomy [facility] [facility] [address] [facility], [facility] Mobile Home Draw [address] [facility] [place] [address] 05/24/2024 8:30 AM EDT Home Visit [facility], [facility] [address] [place] [address] Destiny Schultz RN [address] [place] [address] 10/01/2024 1:00 PM EST Telemedicine Family Medicine [address] [phone] Kusum Jones CRNP [address] [place] [address] [place] [address] 10/13/2024 11:30 AM EST Telemedicine Urology, [facility] 132 [facility] [place] [address] Chandler Pena MD [address] [place] [address] 11/24/2024 1:40 PM EDT Office Visit Dermatology [address] [place] [address] Sheryl Pena PA-C [address] [place] [address] [place] [address] 04/18/2025 1:20 PM EDT Telemedicine Family Medicine [address] [place] [phone] Verónica Jiang MD [address] [place] [address] [place] [address] Scheduled Referrals Name Type Priority Associated Diagnoses Orde r Schedule HOME HEALTH REFERRAL OP Referral Within 10 days (routine) Heart failure, systolic, due to idiopathic cardiomyopathy (HCC) Lymphedema of both lower extremities Impaired mobility and ADLs Ordered: 04/22/2024 Health Maintenance Due Date Last Done Comments [...] Additional history exists CKD HGB USE SMARTSET 45271 04/02/202504/02, 04/02/2024, 05/26/2023, Additional history exists CKD PHOS USE SMARTSET 75892 04/02/2025 08/0 04/2024, 02/07/2023, 08/07/2021, Additional history [...] Heart failure, systolic, due to idiopathic cardiomyopathy (HCC)- Primary Unspecified systolic heart failure Lymphedema of both lower extremities Impaired mobility and ADLs Mechanical problems with limbs documented in this encounter Advance Directives Documents on File Type Date Recorded Patient Shop Hand Expl anation Advance Directives and Living Will 08/10/2021 ADVANCE DIRECTIVE / LIVING WILL LIVING WILL Healthcare Agents on File Name Relationship Healthcare Agent [facility] Communication Josselyn Judd Adult Child Health Care Power of Attor nathalie Care Teams Application Architect Relationship Specialty Start Date End Date Verónica Jiang MD [address] [place] [address] [place] [phone] PCP - General Family Medicine 09/16/14 documented as of this encounter
--- OUTSIDE RECORDS SUMMARY | 2024-04-24 11:08 | External Medical Summary | Summary of Care ---
Author Name Unknown Organization [facility] Address [address] [place] [address] Phone [phone] Care Team Providers Care Olive Picker Name Role Phone Verónica Benavides MD Primary Care Provide r Reason for Visit * Reason Comments [facility]: Acute Encounter Details Date Type Department Care Team ([facility] Contact Info) Description 04/21/2024 1:30 PM EDT [facility], [facility] [address] [facility] [address] Destiny Schultz, POPPY [address] [place] [address] Acute cystitis without hematuria Allergies Active Allergy [...] mouth in the morning. 08/08/2021 Active Nystatin 856698 UNIT/GM External Powder (Nystop)Indications: Lydia rash of [...] Tablet 3 07/08/2023 Active OneTouch Delica Plus [id number] :Type 2 diabetes mellitus with hemoglobin A1c goal of less than 8.0% ([facility]) Test up to two times daily or as directed by 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 Last Assessment & Plan: [facility] Triage Call: Reviewed last C&S [...] Continue synthroid Coronary artery disease invo lving eastern cherokee coronary artery of eastern cherokee heart without angina pectoris 07/03/2012 Overview: [...] mRNA, LNP-s, No Pre serve, 2-Dose Series ([employer]) 08/29/2021,10/23/2020,10/02/2020 COVID-19, MRNA-LNP, 23-24, P F, 30 MCG/0.3 mL, 12 YRS AND ABOVE, IM (Zillabyte-Comirformerly vidant duplin hospitalMedikidz) 08/04/2023 Covid-19, Mrna, Lnp-s, Pf, B ivalent, [...] Progress Notes * Destiny Schultz RN - 04/21/2024 2:19 PM EDT [facility] Organ Pipe VoicerHuman Resources Office Assistant Visit Date: 04/21/2024 Time: 2:19 PM Name: Regla Castano : 1935 Current Concerns: Patient seen for acute visit- recent UA clean catch- contaminated. Request for Straight cath to obtain urine. Patient continues to report burning, frequency, weakness. Daughters/ caregivers present for visit. Upon arrival- patient being transferred to new bed "Up bed [facility]" Daughters and caregivers having difficulty getting patient in and out of bed. Daughter requesting OT referral for bed transfers. T/E sent to PCP for HH OT referral. Problems/Symptoms: Physical Exam: There were no vitals taken for this visit. Pain 0 [facility]-10 Completed this Visit: No. No falls since last visit Treatment/Plan: Patient straight cathed via sterile technique Urine yellow/clear- no odor noted Tolerated well Specimen taken to [facility]. Home Interventions Provided: Reinforced current Plan of Care, including self-management and medication regimen Patient Needs to Remember: Call [facility] at with any new or worsening health concerns or problems, red flag symptoms. Referrals Needed: N/a Follow Up: Is there cellular connectivity/connectivity in the home? Yes Does the patient have internet in the home? Yes Patient encouraged to call the intake phone number for all urgent but not emergent issues. Scheduled to follow up with patient in 4 weeks. Destiny Byers RN 04/21/2024 2:19 PM documented in this encounter Plan of Treatment Upcoming Encounters Date Type Department Care Team (Late st Contact Info) Description 04/22/2024 1:30 PM EDT Scheduled Telephone [facility], [address] [place] [address] Coordinator, [place] [address] [facility] [place] [address] 04/23/2024 12:00 PM EDT Scheduled Telephone [facility], [facility] [address] [place] [address] Coordinator, [address] [place] [address] 05/14/2024 7:00 AM EDT Laboratory Lab Mobile Phlebotomy [facility] [address] [facility] [address] M[facility], Gml Mobile Home Draw [address] [facility] [address] 05/24/2024 8:30 AM EDT Home Visit [facility], [facility] [address] [place] [address] Destiny Schultz RN 132 [facility] [place] [address] 10/01/2024 1:00 PM EST Telemedicine Family Medicine [address] [phone] Kusum Jones CRNP [address] [place] [address] [place] [address] 10/13/2024 11:30 AM EST Telemedicine Urology, Health system [address] [place] [address] Chandler Pena MD [address] [place] [address] 11/24/2024 1:40 PM EDT Office Visit Dermatology [address] [place] [address] Sheryl Pena PA-C [address] [place] [address] [place] [address] 04/18/2025 1:20 PM EDT Telemedicine Family Medicine [address] [place] [phone] Verónica Benavides MD [address] [place] [address] [place] [address] Pending Results Name Type Priority Associated Diagnoses Date /Time URINALYSIS, REFLEX TO CULTURE (NOT FOR NEUTROPENIC PATIENTS) Lab Routine Acute cystitis without hematuria 04/21/2024 2:43 PM EDT URINALYSIS, REFLEX TO CULTURE Lab Routine Acute cystitis without hematuria 04/21/2024 2:43 PM EDT Scheduled Orders Name Type Priority Associated Diagnoses Orde r Schedule URINALYSIS, REFLEX TO CULTURE (CUP ONLY) Lab Routine Acute cystitis without hematuria Ordered: 04/21/2024 Health Maintenance Due Date Last Done Comments [...] Additional history exists CKD HGB USE SMARTSET 54958 04/02/202504/02, 04/02/2024, 05/26/2023, Additional history exists CKD PHOS USE SMARTSET 13382 04/02/2025 08/0 04/2024, 02/07/2023, 08/07/2021, Additional history [...] hematuria Acute cystitis documented in this encounter Advance Directives Documents on File Type Date Recorded 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
--- OUTSIDE RECORDS SUMMARY | 2024-04-24 11:08 | External Medical Summary | Summary of Care ---
Author Name Unknown Organization [facility] Address [address] [place] [address] Phone [phone] Care Team Providers Care Dinkey Operator Slate Name Role Phone Verónica Benavides MD Primary Care Provide r Reason for Visit * Reason Onset Date Comments [facility]: Maintenance 04/21/2024 Encounter Details Date Type Department Care Team (Late st Contact Info) Description 04/21/2024 10:00 AM EDT Scheduled Telephone [facility], [facility] [address] [place] [address] Coordinator, [facility] [address] [place] [address] Allergies Active Allergy Reactions Criticality Noted Date [...] mouth in the morning. 08/08/2021 Active Nystatin 306892 UNIT/GM External Powder (Nystop)Indications: Lydia rash of [...] Tablet 3 07/08/2023 Active OneTouch Delica Plus [id number] :Type 2 diabetes mellitus with hemoglobin A1c goal of less than 8.0% ([facility]) Test up to two times daily or as directed by [facility] pharmacist 200 Each 3 07/11/2023 [...] XL)Indications:Non-i schemic cardiomyopathy (HCC),Coronary artery disease involving lumbee coronary artery of lumbee heart without angina pectoris,HTN, goal below 140/90 [...] Continue synthroid Coronary artery disease invo lving lumbee coronary artery of lumbee heart without angina pectoris 07/03/2012 Overview: 60% [...] mRNA, LNP-s, No Pre serve, 2-Dose Series (resmio) 08/29/2021,10/23/2020,10/02/2020 COVID-19, MRNA-LNP, 23-24, P F, 30 MCG/0.3 mL, 12 YRS AND ABOVE, IM ([employer]ing-Room ChoiceirWiNetworks) 08/04/2023 Covid-19, Mrna, Lnp-s, Pf, B ivalent, 30 Mcg, IM, 12 yrs and above (resmio) 08/02/2022 Pneumococcal Conjugate Vacc, 13 Valent (Prevnar) [...] from the original note were not included. [facility] Telephonic Nurse Follow-Up Call [facility] Subprogram: Primary Care at [...] will monitor her weight.. Disposition: Routed to [facility] and/or [facility] Care Team for further advice Preferred Pharmacy is [facility] in [place] Future Visits Scheduled: Future Appointments-next 60 days Date/Time Provider Specialty Dept Phone 05/14/2024 7:00 AM [facility], Gml Mobile Home Draw Laboratory Processing [phone] 05/24/2024 8:30 AM Destiny Schultz RN [facility] [phone] 10/01/2024 1:00 PM Kusum Jones CRNP Family Medicine [phone] 10/13/2024 11:30 AM Chandler Pena MD Urology [phone] 11/24/2024 1:40 PM (Arrive by 1:25 PM) Sheryl Pena PA-C Dermatology [phone] 04/18/2025 1:20 PM Verónica Benavides MD Family Medicine [phone] Briseyda Rich RN [facility] Registered Nurse Navigator Triage documented in this encounter Plan of Treatment Upcoming Encounters Date Type Department Care Team (Late st Contact Info) Description 05/14/2024 7:00 AM EDT Laboratory Lab Mobile Phlebotomy [facility] [address] [place] [address] Mvmg, Gml Mobile Home Draw [address] [place] [address] 05/24/2024 8:30 AM EDT [facility] Visit [facility], [facility] [place] [address] Destiny Schultz, RN 132 [facility] [place] [address] 10/01/2024 1:00 PM EST Telemedicine Family Medicine [address] [place] [phone] Kusum Jones CRNP [address] [place] [address] [place] [address] 10/13/2024 11:30 AM EST Telemedicine Urology, [facility] [place] [address] Chandler Pena MD [address] [place] [address] [place] [address] 11/24/2024 1:40 PM EDT Office Visit Dermatology [address] [place] [address] Sheryl Pena PA-C [address] [place] [address] [place] [address] 04/18/2025 1:20 PM EDT Telemedicine Family Medicine [address] [place] [phone] Verónica Benavides MD [address] [place] [address] [place] [address] Health Maintenance Due Date Last Done Comments Zoster Vaccines (1 of 2) 1985 Adult Wellness Visit 09/11/2016 09/11/2015 DXA Scan 04/02/2020 04/02/2017, 0511/2012, 11/05/2007 Depression [...] Additional history exists CKD HGB USE SMARTSET 76008 04/02/202504/02, 04/02/2024, 05/26/2023, Additional history exists CKD PHOS USE SMARTSET 16023 04/02/2025 08/0 04/2024, 02/07/2023, 08/07/2021, Additional history [...] Documents on File Type Date Recorded 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
--- OUTSIDE RECORDS SUMMARY | 2024-04-24 11:09 | External Medical Summary | Summary of Care ---
Author Name Unknown Organization [facility] Address [address] [place] [address] Phone [phone] Care Team Providers Care Milk Handler Name Role Phone Verónica Jiang MD Primary Care Provide r Reason for Visit * Reason Onset Date Comments [facility]: Acute 04/19/2024 Encounter Details Date Type Department Care Team (Late st Contact Info) Description 04/19/2024 Telephone [facility], [facility] [address] [place] [address] [facility], Nurse [place] [phone] [place] [address] [facility]: Acute Allergies Active Allergy [...] mouth in the morning. 08/08/2021 Active Nystatin 417584 UNIT/GM External Powder (Nystop)Indications :Lydia rash of [...] Tablet 3 07/08/2023 Active OneTouch Delica Plus Gxotjj68PQyqckksmyc s:Type 2 diabetes mellitus with hemoglobin A1c goal of less than 8.0% ([facility]) Test up to two times daily or as directed by [facility] pharmacist 200 Each 3 07/11/2023 Active Estrogens [...] no improvement on day 3, contact [facility] for possible home visit 1 Each [...] the day.. 90 Capsule 1 02/10/2024 Active metOLazone 2.5 MG Oral Tablet (Zaroxolyn) Take one tablet only when directed by clinician. 5 Tablet 02/11/2024 Active Spironolactone 25 MG Oral Tablet (Aldactone)Indicati [...] XL)Indications:Non- ischemic cardiomyopathy (HCC),Coronary artery disease involving makah coronary artery of makah heart without angina pectoris,HTN, goal below 140/90 [...] pain with urination 6 Tablet 04/19/2024 Active Phenazopyridine HCl 200 MG Oral Tablet [...] Continue synthroid Coronary artery disease invo lving makah coronary artery of makah heart without angina pectoris 07/03/2012 Overview: 60% [...] mRNA, LNP-s, No Pre serve, 2-Dose Series (ProNerve) 08/29/2021,10/23/2020,10/02/2020 COVID-19, MRNA-LNP, 23-24, P F, 30 MCG/0.3 mL, 12 YRS AND ABOVE, IM (MoneyDesktop-ComirnatNatural Power Concepts) 08/04/2023 Covid-19, Mrna, Lnp-s, Pf, B ivalent, 30 Mcg, IM, 12 yrs and above (ProNerve) 08/02/2022 Influenza, Whole Virus 08/07/2000 Pneumococcal Conjugate [...] Addendum Note - Verónica Jiang MD - 04/19/2024 11:43 AM EDTAddended by: VERÓNICA JIANG on: 04/19/2024 11:43 AM Modules accepted: Orders * Telephone Encounter - Verónica Jiang MD - 04/19/2024 11:43 AM EDT Sent pyridium to [facility]. Standing urine test is ordered by urology. * Telephone Encounter - Berna Mathis PA-C - 04/19/2024 11:38 AM EDT Daughter contacted me via MyG. Consistent with Efudex use. Berna Mathis PA-C 04/19/2024 11:38 AM * Telephone Encounter - Tali Patel RN - 04/19/2024 10:18 AM EDT Images from the original note were not included. 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 PC received from Josselyn [employer] DTR states patient has another UTI Patient chronic UTIs DTR states she has a standing urine order from PCP [facility] DTR states patient is also being treated for squamous cell carcinoma had recent scraping by dermatology and placed on Fluorouracil 5% BID x 6 weeks. DTr asking if " blister on face is normal". She states she already sent pic to dermatology Pic she sent me today looks unchanged from pic 04/12/24 in media scanned by dermatology Berna Mathis ROS: DTR reports her UTI s/s started Friday night 04/16/24 + burning, increased frequency, + weakness BLE, + strong urine odor, + cloudy "puss" looking urine Rarely has temps per DTR DTR states patient is in no emergent distress DTR not home to obtain vitals 04/12/24 photo 04/19/24 Nursing Assessment: Patient's chief complaint for this call: Urinary symptoms Pain Denies pain Baseline Assessment Able to performing ADLs at baseline (walking, daily tasks, etc.): Yes Chief Complaint is related to a chronic condition: Yes Chronic Condition: UTIs Chief Complaint is a change in baseline: Yes, increased burning,frequency Patient prescribed oxygen? No Patient has been ordered DME equipment (assistive devices, respiratory equipment, etc.): No Medication Reconciliation: Taking medication as ordered: Yes Medications ordered/taking to treat reason for call: Fluorouracil 5% BID x 6 weeks. Nothing for UTI Heart filure symptoms: No COPD exacerbation symptoms: No Reinforcement Education: Hydrate with water up to fluid restriction Monitor for worsening s/s Frequent yvette care DTr requesting refill of pyridium which patient uses for urinary burning written by PCP Since patient is currently symptomatic and AP is on the road and PCP response may not occur today...sending to [facility] for refill today Please send refill of pyridium to [facility] as requested by Josselyn Did not pend as I am Unsure if I can pend medication if requesting a different provider to refill Also Routing to dermatology to advise on facial blister and if this is normal with use of Fluorouracil Treatment/Plan: Level of call: Acute Appointment scheduled for same day: No Provider Name: N/A Treatment plan until appointment: to [facility] for refill of pyridium F/u PC placed Call back instructions provided to patient. Tali Patel RN, BSN [facility] hot box spotterVpk Teacher documented in this encounter Plan of Treatment Upcoming Encounters Date Type Department Care Team (Late st Contact Info) Description 04/21/2024 10:00 AM EDT Scheduled Telephone [facility] [place], [facility] [address] [place] [address] Coordinator, [facility] [address] [facility] [place] [address] 05/14/2024 7:00 AM EDT Laboratory Lab Mobile Phlebotomy [facility] [address] [facility] [place] [address] Mvmg, Gml Mobile Home Draw [address] [facility] [place] [address] 05/24/2024 8:30 AM EDT Home Visit [facility], [facility] [address] [address] Destiny Schultz, POPPY [address] [place] [address] 10/01/2024 1:00 PM EST Telemedicine Family Medicine [address] [place] [phone] Kusum Jones CRNP [address] [place] [address] [place] [address] 10/13/2024 11:30 AM EST Telemedicine Urology, [facility] 132 [facility] [place] [address] Chandler Pena MD [address] [place] [address] 11/24/2024 1:40 PM EDT Office Visit Dermatology [address] [place] [address] Sheryl Pena PA-C [address] [place] [address] [place] [address] 04/18/2025 1:20 PM EDT Telemedicine Family Medicine [address] [place] [phone] Verónica Jiang MD [address] [place] [address] [place] [address] Health Maintenance Due Date Last Done Comments [...] Additional history exists CKD HGB USE SMARTSET 88079 04/02/202504/02, 04/02/2024, 05/26/2023, Additional history exists CKD PHOS USE SMARTSET 73933 04/02/2025 08/0 04/2024, 02/07/2023, 08/07/2021, Additional history exists TSH 04/02/2025 04/02/2024, 08/0 08/2022, 02/24/2023, Additional history exists Pneumococcal Vaccine: [...] Documents on File Type Date Recorded Patient Special Education Professor Expl anation Advance Directives and Living Will 08/10/2021 ADVANCE DIRECTIVE / LIVING WILL LIVING WILL Healthcare Agents on File Name Relationship Healthcare Agent [facility] Communication Josselyn Judd Adult Child Health Care Power of Attor nathalie Care Teams Milk Handler Relationship Specialty Start Date End Date Verónica Jiang MD [address] [place] [address] [place] [phone] PCP - General Family Medicine 09/16/14 documented as of this encounter
--- OUTSIDE RECORDS SUMMARY | 2024-04-24 11:09 | External Medical Summary | Summary of Care ---
Author Name Unknown Organization [facility] Address [address] [place] [address] Phone [phone] Care Team Providers Care Director Internal Audit Name Role Phone Verónica Benavides MD Primary Care Provide r Reason for Visit * Reason Onset Date Comments [facility]: Acute 04/19/2024 Encounter Details Date Type Department Care Team (Late st Contact Info) Description 04/19/2024 Telephone [facility], [facility] [address] [place] [address] [facility], Nurse [place] [id number] [place] [address] [facility]: Acute Allergies [...] mouth in the morning. 08/08/2021 Active Nystatin 302116 UNIT/GM External Powder (Nystop)Indications: Lydia rash of [...] Tablet 3 07/08/2023 Active OneTouch Delica Plus [id number] :Type 2 diabetes mellitus with hemoglobin A1c goal of less than 8.0% ([facility]) Test up to two times daily or as directed by [facility] pharmacist 200 Each 3 07/11/2023 [...] 02/11/2024 Active Spironolactone 25 MG Oral Tablet (Aldactone)Indicatio ns:Non-ischemic cardiomyopathy (HCC) TAKE 1/2 TABLET BY MOUTH EVERY MORNING 45 Tablet 3 03/03/2024 Active Phenazopyridine HCl 200 MG Oral Tablet (Pyridium) Take 1 Tablet by mouth 3 times a day as needed for Pain, Severe. After meals for pain with urination 6 Tablet 03/20/2024 Active Fosfomycin Tromethamine 3 GM Oral Packet [...] XL)Indications:Non-i schemic cardiomyopathy (HCC),Coronary artery disease involving [place] coronary artery of [place] heart without angina pectoris,HTN, goal below 140/90 TAKE ONE TABLET BY MOUTH in the evening 90 Tablet 1 04/08/2024 Active Diclofenac Sodium 1 % External Gel (Voltaren) Apply topically to affected area 3 times a day as needed for Pain, Mild. 50 g 3 04/15/2024 Active documented as of this encounter (statuses [...] Continue synthroid Coronary artery disease invo lving [place] coronary artery of [place] heart without angina pectoris 07/03/2012 Overview: 60% [...] mRNA, LNP-s, No Pre serve, 2-Dose Series ([employer]) 08/29/2021,10/23/2020,10/02/2020 COVID-19, MRNA-LNP, 23-24, P F, 30 MCG/0.3 mL, 12 YRS AND ABOVE, IM ([employer]) 08/04/2023 Covid-19, Mrna, Lnp-s, Pf, B ivalent, [...] encounter Miscellaneous Notes * Telephone Encounter - Berna Mathis PA-C - 04/19/2024 11:38 AM EDT Daughter contacted me via MyG. Consistent with Efudex use. Berna Mathis PA-C 04/19/2024 11:38 AM * Telephone Encounter - Tali Patel RN - 04/19/2024 10:18 AM EDT Images from the original note were not included. 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 PC received from [facility] DTR states patient has another UTI Patient chronic UTIs DTR states she has a standing urine order from PCP And took a urine over to [facility] lab today DTR states patient is also [...] PCP response may not occur today...sending to [facility] for refill today Please send refill of pyridium to [facility] as requested by Josselyn Kirby not pend as I am Unsure if I can pend medication if requesting a different provider to refill Also Routing to dermatology to advise on facial blister and if this is normal with use of Fluorouracil Treatment/Plan: Level of call: Acute Appointment scheduled for same day: No Provider Name: N/A Treatment plan until appointment: to [facility] for refill of pyridium F/u PC placed Call back instructions provided to patient. Tali Patel RN, BSN [facility] casting testerTailings Man documented in this encounter Plan of Treatment Upcoming Encounters Date Type Department Care Team (Late st Contact Info) Description 04/21/2024 10:00 AM EDT Scheduled Telephone [facility], [place] [address] [place] [address] Coordinator, [facility] [address] [place] [address] 05/14/2024 7:00 AM EDT Laboratory Lab Mobile Phlebotomy [facility] [address] [place] [address] [facility], Gml Mobile Home Draw [address] [place] [address] 05/24/2024 8:30 AM EDT [facility] Visit [facility], [facility] [address] [place] [address] Destiny Schultz RN 132 [facility] [place] [address] 10/01/2024 1:00 PM EST Telemedicine Family Medicine [address] [place] [phone] Kusum Jones CRNP [address] [place] [address] [place] [address] 10/13/2024 11:30 AM EST Telemedicine Urology, [facility] 132 [facility] [place] [address] Chandler Pena MD [address] [place] [address] 11/24/2024 1:40 PM EDT Office Visit Dermatology [address] [place] [address] Sheryl Pena PA-C [address] [place] [address] [place] [address] 04/18/2025 1:20 PM EDT Telemedicine Family [address] [place] [phone] Verónica Benavides MD [address] [place] [address] [place] [address] Health Maintenance Due Date Last Done Comments [...] Additional history exists CKD HGB USE SMARTSET 96265 04/02/202504/02, 04/02/2024, 05/26/2023, Additional history exists CKD PHOS USE SMARTSET 21122 04/02/2025 08/0 04/2024, 02/07/2023, 08/07/2021, Additional history [...] Documents on File Type Date Recorded 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
--- OUTSIDE RECORDS SUMMARY | 2024-04-24 11:09 | External Medical Summary | Summary of Care ---
Author Name Unknown Organization [facility] Address [address] [place] [address] Phone [phone] Care Team Providers Care Atg Java Developer Name Role Phone Verónica Jiang MD Primary Care Provide r Reason for Visit * Reason Comments eRx-Medication Refill Encounter Details Date Type Department Care Team ([facility] Contact Info) Description 04/08/2024 Refill [facility], [facility] [address] [place] [address] Marcela Evans PA-C [address] [place] [address] Non-ischemic cardiomyopathy (HCC); Coronary artery disease involving [place] coronary artery of [place] heart without angina pectoris; HTN, goal below 140/90 Allergies Active Allergy Reactions Criticality Noted Date Comments Adhesive Tape Medium 01/30/2022 Ibuprofen Hives 01/13/2012 Aspirin Hives,Rash 09/15/2000 Sulfamethoxazole-Trimeth oprim Nausea/vomiting,Othe r (Please comment) 10/27/2020 Dizziness Ciprofloxacin Hcl 06/16/2019 Hoarse, dizzy,disoriented Morphine 09/21/2021 Blacked out Penicillins Hives,Rash 09/15/2000 Prednisone 12/30/2017 Weakness/memory changes/blurred vision documented as of this encounter (statuses as of 04/08/2024) Medications Medication Sig Dispensed Refills Start Date [...] mouth in the morning. 1 Active Nystatin 855182 UNIT/GM External Powder (Nystop)Indications :Lydia rash of [...] without long-term current use of insulin ([facility]),Type 2 diabetes mellitus with hemoglobin A1c goal of less than 8.0% ([facility]) TEST UP TO FOUR TIMES DAILY 400 [...] Tablet 3 3 Active OneTouch Delica Plus [id number] s:Type 2 diabetes mellitus with hemoglobin A1c goal of less than 8.0% ([facility]) Test up to two times daily or as directed by [facility] pharmacist 200 Each 3 3 [...] If no improvement on day 3, contact [facility] for possible home visit 1 Each [...] the day.. 90 Capsule 1 4 Active metOLazone 2.5 MG Oral Tablet (Zaroxolyn) Take one tablet only when directed by clinician. 5 Tablet 4 Active Spironolactone 25 MG Oral Tablet (Aldactone)Indicati ons:Non-ischemic cardiomyopathy (HCC) TAKE 1/2 TABLET BY MOUTH EVERY MORNING 45 Tablet 3 4 Active Phenazopyridine HCl 200 MG Oral Tablet (Pyridium) Take 1 Tablet by mouth 3 times a day as needed for Pain, Severe. After meals for pain with urination 6 Tablet 4 Active Fosfomycin Tromethamine 3 GM Oral Packet (Monurol) Take 3 g by mouth every 3 days. 3 Packet 4 Active Fluorouracil 5 % External Cream [...] ischemic cardiomyopathy (HCC),Coronary artery disease involving [place] coronary artery of [place] heart without angina pectoris,HTN, goal below 140/90 TAKE ONE TABLET BY MOUTH in the evening 90 Tablet 1 4 Active Metoprolol Succinate ER 25 MG Oral Tablet Extended Release 24 Hour (toPROL XL)Indications:Non- ischemic cardiomyopathy (HCC),Coronary artery disease involving [place] coronary artery of [place] heart without angina pectoris,HTN, goal below 140/90 Take 1 Tablet by mouth every evening. 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 Last Assessment & Plan: [facility] Triage Call: Reviewed last C&S - [...] synthroid Coronary artery disease invo lving [place] coronary artery of [place] heart without angina pectoris 07/03/2012 Overview: 60% [...] as of this encounter (statuses as of 04/08/2024) Resolved Problems Problem Noted Date Diagnosed Date [...] as of this encounter (statuses as of 04/08/2024) Immunizations Name Administration Dates Next Due COVID-19 mRNA, LNP-s, No Pre serve, 2-Dose Series ([employer]) 08/29/2021,10/23/2020,10/02/2020 COVID-19, MRNA-LNP, 23-24, P F, 30 MCG/0.3 mL, 12 YRS AND ABOVE, IM ([employer]) 08/04/2023 Covid-19, Mrna, Lnp-s, Pf, B ivalent, 30 Mcg, IM, 12 yrs and above ([employer]) 08/02/2022 Pneumococcal Conjugate Vacc, 13 Valent (Prevnar) [...] Telephone Encounter - Verónica Jiang MD - 04/08/2024 1:25 PM EDT Signed Prescriptions: Disp Refills Metoprolol Succinate ER 25 MG Oral Tablet *90 Tab*1 Sig: TAKE ONE TABLET BY MOUTH in the evening Authorizing Provider: VERÓNICA JIANG * Telephone Encounter - Cindy Wilder LPN - 04/08/2024 1:23 PM EDT Did you pend patient's preferred pharmacy and medication before forwarding?yes Pharmacy: [facility], [address] [place] Pending Prescriptions: Disp Refills Metoprolol Succinate ER 25 MG Oral Tablet*90 Tab*11 Sig: TAKE ONE TABLET BY MOUTH in the evening Last Visit: 07/15/2019 (in office), 04/30/2023 (telemedicine) Next Visit: 04/14/2024 If no future appointments scheduled, and last appointment is greater than a year ago, please schedule patient for a follow-up appointment Last date the medication was ordered: 01/02/24 Is this request for a controlled substance?No [...] TSH 6.83 (H) 07/14/2020 12:47 PM LDLCALC 73 04/02/2024 09:53 AM LDLCALC 90 11/09/2019 03:52 PM LDLDIRECT 81 05/24/2022 10:52 AM LDLDIRECT NOT APPLICABLE 11/09/2019 03:52 PM LDLDIRECT 106 08/27/2016 03:06 PM ALT 13 07/18/2021 09:24 AM ALT 15 07/07/2020 11:05 AM HGBA1C 7.3 (H) 04/02/2024 09:53 AM HGBA1C 6.4 (H) 06/06/2020 11:14 AM * Telephone Encounter - Fely Portillo [facility] - 04/08/2024 9:24 AM EDT Pending Prescriptions: Disp Refills Metoprolol Succinate ER 25 MG Oral Tablet *90 Tab*11 Sig: TAKEONE TABLET BY MOUTH in the evening documented in this encounter Plan of Treatment Upcoming Encounters Date Type Department Care Team (Late st Contact Info) Description 04/14/2024 4:00 PM EDT [facility] [address] [place] [address] Destiny Schultz, POPPY 132 [facility] [place] [address] 10/01/2024 1:00 PM EST Telemedicine Family [address] [place] [phone] Kusum Jones [address] [place] [address] 10/13/2024 11:30 AM EST Telemedicine Urology, [facility] [address] [place] [address] Chandler Pena MD [address] [place] [address] 11/24/2024 1:40 PM EDT Office Visit Dermatology [address] [place] [address] Sheryl Pena PA-C [address] [place] [address] [place] [address] 04/18/2025 1:20 PM EDT Telemedicine Family [address] [place] [phone] Verónica Jiang MD [address] [place] [address] [place] [phone] Health Maintenance Due Date Last Done Comments [...] Additional history exists CKD HGB USE SMARTSET 10153 04/02/202504/02, 04/02/2024, 05/26/2023, Additional history exists CKD PHOS USE SMARTSET 59912 04/02/2025 08/0 04/2024, 02/07/2023, 08/07/2021, Additional history [...] as of this encounter Visit Diagnoses Diagnosis Non-ischemic cardiomyopathy (HCC) Other primary cardiomyopathies Coronary artery disease involving [place] coronary artery of [place] heart without angina pectoris HTN, goal below 140/90 Unspecified essential hypertension documented in this encounter Advance Directives Documents on File Type Date Recorded Patient Technologist Development Expl anation Advance Directives and Living Will 08/10/2021 ADVANCE DIRECTIVE / LIVING WILL LIVING WILL Healthcare Agents on File Name Relationship [facility] Josselyn Judd Adult Child Health Care Power of Attor nathalie Care Teams Atg Java Developer Relationship Specialty Start Date End Date Verónica Jiang MD [address] [place] [address] [place] [phone] PCP - General Family Medicine 09/16/14 documented as of this encounter
--- OUTSIDE RECORDS SUMMARY | 2024-04-24 11:09 | External Medical Summary | Summary of Care ---
Author Name Unknown Organization [facility] Address [address] [place] [address] Phone [phone] Care Team Providers Care Severity Of Illness Coordinator Name Role Phone Verónica Jiang MD Primary Care Provide r Reason for Visit * Reason Onset Date Comments [facility]: Acute 04/19/2024 Encounter Details Date Type Department Care Team (Late st Contact Info) Description 04/19/2024 Telephone [facility], [facility] [address] [place] [address] [facility], Nurse [place] [phone] [place] [address] [facility]: Acute Allergies [...] mouth in the morning. 08/08/2021 Active Nystatin 405957 UNIT/GM External Powder (Nystop)Indications :Lydia rash of [...] of insulin ([facility]),Type 2 diabetes mellitus with hemoglobin A1c goal [...] Tablet 3 07/08/2023 Active OneTouch Delica Plus [id number] s:Type 2 diabetes mellitus with hemoglobin A1c goal of less than 8.0% ([facility]) Test up to two times daily or as directed by [facility] pharmacist 200 Each 3 07/11/2023 Active [...] If no improvement on day 3, contact [facility] for possible home visit 1 Each [...] XL)Indications:Non- ischemic cardiomyopathy (HCC),Coronary artery disease involving [place] coronary artery of [place] heart without angina pectoris,HTN, goal below 140/90 [...] synthroid Coronary artery disease invo lving [place] coronary artery of [place] heart without angina pectoris 07/03/2012 Overview: 60% [...] mRNA, LNP-s, No Pre serve, 2-Dose Series ([employer]) 08/29/2021,10/23/2020,10/02/2020 COVID-19, MRNA-LNP, 23-24, P F, 30 MCG/0.3 mL, 12 YRS AND ABOVE, IM ([employer]) 08/04/2023 Covid-19, Mrna, Lnp-s, Pf, B ivalent, 30 Mcg, IM, 12 yrs and above ([employer]) 08/02/2022 Influenza, Whole Virus 08/07/2000 Pneumococcal Conjugate [...] 04/19/2024 11:43 AM EDT Sent pyridium to [facility]. Standing urine test is ordered by urology. * Telephone Encounter - Berna Mathis PA-C - 04/19/2024 11:38 AM EDT Daughter contacted me via MyG. Consistent with Efudex use. Berna Mathis PA-C 04/19/2024 11:38 AM * Telephone Encounter - Tali Patel RN - 04/19/2024 10:18 AM EDT Images from the original note were not included. 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 PC received from [facility] DTR states patient has another UTI Patient chronic UTIs DTR states she has a standing urine order from PCP [facility] DTR states patient is also [...] PCP response may not occur today...sending to [facility] for refill today Please send refill of pyridium to [facility] as requested by Josselyn Did not pend as I am Unsure if I can pend medication if requesting a different provider to refill Also Routing to dermatology to advise on facial blister and if this is normal with use of Fluorouracil Treatment/Plan: Level of call: Acute Appointment scheduled for same day: No Provider Name: N/A Treatment plan until appointment: to [facility] for refill of pyridium F/u PC placed Call back instructions provided to patient. Tali Patel RN, BSN [facility] metal tank erectorFudge Candy Maker documented in this encounter Plan of Treatment Upcoming Encounters Date Type Department Care Team (Late st Contact Info) Description 04/21/2024 10:00 AM EDT Scheduled Telephone [facility] [place], [facility] [address] [place] [address] Coordinator, [facility] [address] [place] [address] 05/14/2024 7:00 AM EDT Laboratory Lab Mobile Phlebotomy [facility] [address] [facility] [place] [address] Mvmg, Gml Mobile Home Draw [address] [facility] [place] [address] 05/24/2024 8:30 AM EDT [facility], [facility] [address] [place] [address] Destiny Schultz, POPPY [address] [place] [address] 10/01/2024 1:00 PM EST Telemedicine Family Medicine [address] [place] [phone] Kusum Jones CRNP [address] [place] [address] [place] [address] 10/13/2024 11:30 AM EST Telemedicine Urology, [facility] 132 [facility] [place] [address] Chandler Pena MD [address] [place] [address] 11/24/2024 1:40 PM EDT Office Visit Dermatology [address] [place] [address] Sheryl Pena PA-C [address] [place] [address] [place] [address] 04/18/2025 1:20 PM EDT Telemedicine Family Medicine [address] [place] [phone] Verónica Jiang MD [address] [place] [address] [place] [address] Health Maintenance Due Date Last Done Comments [...] Additional history exists CKD HGB USE SMARTSET 98848 04/02/202504/02, 04/02/2024, 05/26/2023, Additional history exists CKD PHOS USE SMARTSET 70200 04/02/2025 08/0 04/2024, 02/07/2023, 08/07/2021, Additional history [...] Documents on File Type Date Recorded Patient Director Of Market Research Expl anation Advance Directives and Living Will 08/10/2021 ADVANCE DIRECTIVE / LIVING WILL LIVING WILL Healthcare Agents on File Name Relationship Healthcare Agent [facility] Communication Josselyn Judd Adult Child Health Care Power of Attor nathalie Care Teams Severity Of Illness Coordinator Relationship Specialty Start Date End Date Verónica Jiang MD [address] [place] [address] [place] [phone] PCP - General Family Medicine 09/16/14 documented as of this encounter
--- OUTSIDE RECORDS SUMMARY | 2024-04-24 11:09 | External Medical Summary | Summary of Care ---
Author Name Unknown Organization [facility] Address [address] [place] [address] Phone [phone] Care Team Providers Care Agriculture Technician Name Role Phone Verónica Benavides MD Primary Care Provide r Reason for Visit * Reason Comments [facility]: Maintenance Encounter Details Date Type Department Care Team ([facility] st Contact Info) Description 04/14/2024 4:00 PM EDT Home Visit [facility], [facility] 132 [facility] [place] [address] Destiny Schultz, POPPY 132 [facility] [place] [address] Allergies Active Allergy Reactions Criticality Noted Date Comments Adhesive Tape Medium 01/30/2022 Ibuprofen Hives 01/13/2012 Aspirin Hives,Rash 09/15/2000 Sulfamethoxazole-Trimeth oprim Nausea/vomiting,Othe r (Please comment) 10/27/2020 Dizziness Ciprofloxacin Hcl 06/16/2019 Hoarse, dizzy,disoriented Morphine 09/21/2021 Blacked out Penicillins Hives,Rash 09/15/2000 Prednisone 12/30/2017 Weakness/memory changes/blurred vision documented as of this encounter (statuses as of 04/16/2024) Medications Medication Sig Dispensed Refills Start Date [...] mouth in the morning. 08/08/2021 Active Nystatin 434155 UNIT/GM External Powder (Nystop)Indications: Lydia rash of [...] Tablet 3 07/08/2023 Active OneTouch Delica Plus [id number] :Type 2 diabetes mellitus with hemoglobin A1c goal of less than 8.0% ([facility]) Test up to two times daily or as directed by [facility] pharmacist 200 Each 3 07/11/2023 [...] no improvement on day 3, contact [facility] for possible home visit 1 [...] XL)Indications:Non-i schemic cardiomyopathy (HCC),Coronary artery disease involving [place] coronary artery of [place] heart without angina pectoris,HTN, goal below 140/90 TAKE ONE TABLET BY MOUTH in the evening 90 Tablet 1 04/08/2024 Active Diclofenac Sodium 1 % External Gel (Voltaren) Apply topically to affected area 3 times a day as needed for Pain, Mild. 50 g 3 04/15/2024 Active documented as of this encounter (statuses as of 04/16/2024) Active Problems Problem Noted Date Diagnosed Date [...] carrier 06/29/2021 Last Assessment & Plan: [facility] Triage Call: Reviewed last C&S [...] Continue synthroid Coronary artery disease invo lving chitina coronary artery of chitina heart without angina pectoris 07/03/2012 Overview: 60% [...] as of this encounter (statuses as of 04/16/2024) Resolved Problems Problem Noted Date Diagnosed Date [...] as of this encounter (statuses as of 04/16/2024) Immunizations Name Administration Dates Next Due COVID-19 mRNA, LNP-s, No Pre serve, 2-Dose Series ([employer]) 08/29/2021,10/23/2020,10/02/2020 COVID-19, MRNA-LNP, 23-24, P F, 30 MCG/0.3 mL, 12 YRS AND ABOVE, IM ([employer]) 08/04/2023 Covid-19, Mrna, Lnp-s, Pf, B ivalent, [...] Sign Reading Time Taken Comments Blood Pressure 112/74 04/14/2024 3:03 PM EDT Pulse 68 04/14/2024 3:03 PM EDT Temperature 36 C (96.8 F) 04/14/2024 3:03 PM EDT Respiratory Rate 18 04/14/2024 3:03 PM EDT Oxygen Saturation 97% 04/14/2024 3:03 PM EDT Inhaled Oxygen Concentration - - Weight 106.9 kg (235 lb 9.6 oz) 04/14/2024 3:03 PM EDT Height - - Body Mass Index 44.52 02/26/2023 10:32 AM EDT documented in this encounter Progress Notes * Destiny Schultz RN - 04/14/2024 3:00 PM EDT [facility] Visit Date: 04/14/2024 Time: 3:01 PM Name: Regla Castano : 1935 Current Concerns: Patient seen for follow up- h/o falls/ UTI, CHF, CKD, DM2 Daughter and caregiver present for visit. Reports patient is doing well. Weights/blood sugars monitored regularly Daughter admin Metolazone on 04/08- gain of 4lbs- patient with weakness and increased sob per daughter. Effectiveness noted. Daughter would like permission to give metolazone once weekly prn weight increase of 3-5lb- she states normally patient only requires one dose a month but medication is very effective and patient is able to ambulate much better because of improvement to edema in BLE. Chu sent T/E to provider for guidance. VS wnl Lungs clear slightly diminished Sob with exertion Nonpitting edema BLE Voiding without difficulty Bowels wnl- per report Appetite good Taking fluids well. Right face open area- recent scraping by dermatology. Squamous cell carcinoma- Fluorouracil 5% BID x 6 weeks. Problems/Symptoms: Review of Systems Constitutional: Negative. HENT: Negative. Respiratory: Positive for shortness of breath. Cardiovascular: Positive for leg swelling. Gastrointestinal: Negative. Genitourinary: Negative. Musculoskeletal: Positive for gait problem. Skin: Negative. Hematological: Negative. Psychiatric/Behavioral: Negative. Physical Exam: BP 112/74 (BP Site: Right Arm, BP Position: Sitting, BP Cuff Size: Regular) | Pulse 68 | Temp 36 C (96.8 F) (Tympanic) | Resp 18 | Wt 106.9 kg (235 lb 9.6 oz) | SpO2 97% | BMI 44.52 kg/m | BSA 2.14 m Pain 0 [...] and Affect: Mood normal. Behavior: Behavior normal. [facility]-10 Completed this Visit: No. No falls since last visit Treatment/Plan: OTC Voltaren for leg discomfort prn- request sent to provider for script to be sent to pharmacy. Low na/NCS diet Elevate ble- edema Weigh daily Blood sugar daily Compression pumps daily alternating legs Continue medications as prescribed Keep all upcoming MD appointments Fall precautions 24 hour caregivers RN CM follow up in 5 weeks Home Interventions Provided: Reinforced current Plan of Care, including self-management and medication regimen Patient's Goals of Care: Stay in my own home Continue to walk with my walker Stay out of the hospital Patient's 'Red Flags': Increased sob Increased swelling Falls Urinary symptoms- confusion, burning Patient Needs to Remember: Call [facility] at with any new or worsening health concerns or problems, red flag symptoms. Referrals Needed: N/a Follow Up: Is there cellular connectivity/connectivity in the home? Yes Does the patient have internet in the home? Yes Patient encouraged to call the intake phone number for all urgent but not emergent issues. Scheduled to follow up with patient in 5 weeks. Destiny Byers RN 04/14/2024 3:01 PM documented in this encounter Plan of Treatment Upcoming Encounters Date Type Department Care Team (Late st Contact Info) Description 05/14/2024 7:00 AM EDT Laboratory Lab Mobile Phlebotomy [facility] [address] [facility] [place] [address] Mvmg, Gml Mobile Home Draw [address] [facility] [place] [address] 05/24/2024 8:30 AM EDT Home Visit [facility] [address] [place] [address] Destiny Schultz, POPPY 132 [facility] [place] [address] 10/01/2024 1:00 PM EST Telemedicine Family Medicine [address] [place] [phone] Kusum Jones [address] [place] [address] 10/13/2024 11:30 AM EST Telemedicine Urology, [facility] 132 [facility] [place] [address] Chandler Pena MD [address] [place] [address] 11/24/2024 1:40 PM EDT Office Visit Dermatology [address] [place] [address] Sheryl Pena PA-C [address] [place] [address] [place] [address] 04/18/2025 1:20 PM EDT Telemedicine Family Medicine [address] [place] [phone] Verónica Benavides MD [address] [place] [address] [place] [address] Health Maintenance Due Date Last Done Comments [...] Additional history exists CKD HGB USE SMARTSET 63680 04/02/202504/02, 04/02/2024, 05/26/2023, Additional history exists CKD PHOS USE SMARTSET 91351 04/02/2025 08/0 04/2024, 02/07/2023, 08/07/2021, Additional history exists TSH 04/02/2025 04/02/2024, 08/2022, 02/24/2023, Additional history exists Pneumococcal Vaccine: [...] Documents on File Type Date Recorded Patient Mental Health Technician Expl 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 Communication Josselyn Judd Adult Child Health Care Power of Attor nathalie Care Teams Agriculture Technician Relationship Specialty Start Date End Date Verónica Benavides MD [address] [place] [address] [place] [address] PCP - General Family Medicine 09/16/14 documented as of this encounter
--- OUTSIDE RECORDS SUMMARY | 2024-04-24 11:09 | External Medical Summary ---
Author Name Unknown Address Unknown Organization K01:LAB[facility]ATORY [facility] - [address] [place] [phone] Laboratory Report Ordering Provider Test Date Status SATISH GEORGE 04/19/2024 09:50:07 Final Observation Date Value Abnormality Reference (Units) Status Bacteria identified in Specimen by Culture 04/19/2024 09:50:07 Multiple rachid suggests contamination or colonization Final Test: Culture, Urine, Quanti tative
Specimen Source: Urine, Clean Catch
Specimen Type: Urine
Specimen Date: 04/19/2024 0950
Result Date: 04/21/2024 0833
Result Status: Final result
Resulting Lab: [facility]
[address]
[facility] [address]

CULTURE

Multiple rachid suggests contamination or colonization

null Performing Location LABORATORY [facility] - [address] [facility] [address]
--- OUTSIDE RECORDS SUMMARY | 2024-04-24 11:09 | External Medical Summary | Summary of Care ---
Author Name Unknown Organization [facility] Address [address] [place] [address] Phone [phone] Care Team Providers Care Bench Shear Operator Name Role Phone Verónica Benavides MD Primary Care Provide r Reason for Visit * Reason Onset Date Comments Follow Up 04/14/2024 Encounter Details Date Type Department Care Team (Late st Contact Info) Description 04/14/2024 Telephone [facility], [facility] [address] [facility] [place] [address] Destiny Schultz RN [address] [facility] [place] [address] Follow Up Allergies Active Allergy Reactions Criticality Noted Date Comments Adhesive Tape Medium 01/30/2022 Ibuprofen Hives 01/13/2012 Aspirin Hives,Rash 09/15/2000 Sulfamethoxazole-Trimeth oprim Nausea/vomiting,Othe r (Please comment) 10/27/2020 Dizziness Ciprofloxacin Hcl 06/16/2019 Hoarse, dizzy,disoriented Morphine 09/21/2021 Blacked out Penicillins Hives,Rash 09/15/2000 Prednisone 12/30/2017 Weakness/memory changes/blurred vision documented as of this encounter (statuses as of 04/14/2024) Medications Medication Sig Dispensed Refills Start Date [...] mouth in the morning. 08/08/2021 Active Nystatin 094562 UNIT/GM External Powder (Nystop)Indications: Lydia rash of [...] Tablet 3 07/08/2023 Active OneTouch Delica Plus [id number] :Type 2 diabetes mellitus with hemoglobin A1c goal of less than 8.0% ([facility]) Test up to two times daily or as directed by [facility] pharmacist 200 Each 3 07/11/2023 [...] If no improvement on day 3, contact [facility] for possible home visit 1 Each [...] schemic cardiomyopathy (HCC),Coronary artery disease involving [place] coronary artery of [place] heart without angina pectoris,HTN, goal below 140/90 TAKE ONE TABLET BY MOUTH in the evening 90 Tablet 1 04/08/2024 Active documented as of this encounter (statuses as of 04/14/2024) Active Problems Problem Noted Date Diagnosed Date [...] synthroid Coronary artery disease invo lving [place] coronary artery of [place] heart without angina pectoris 07/03/2012 Overview: [...] as of this encounter (statuses as of 04/14/2024) Resolved Problems Problem Noted Date Diagnosed Date [...] as of this encounter (statuses as of 04/14/2024) Immunizations Name Administration Dates Next Due COVID-19 mRNA, LNP-s, No Pre serve, 2-Dose Series ([employer]) 08/29/2021,10/23/2020,10/02/2020 COVID-19, MRNA-LNP, 23-24, P F, 30 MCG/0.3 mL, 12 YRS AND ABOVE, IM ([employer]) 08/04/2023 Covid-19, Mrna, Lnp-s, Pf, B ivalent, 30 Mcg, IM, 12 yrs and above ([employer]) 08/02/2022 Pneumococcal Conjugate Vacc, 13 Valent (Prevnar) [...] Schultz RN - 04/14/2024 4:32 PM EDT Brandt, Home visit with Regla today. Josselyn has [...] to admin med. She would communicate to [facility] if shehas had to give it weekly to have labs drawn to monitor kidney function. OR should she continue to give DTP(3 days) and if ineffective call [facility]? Please advise. Thanks! Destiny documented in this encounter Plan of Treatment Upcoming Encounters Date Type Department Care Team (Late st Contact Info) Description 05/14/2024 7:00 AM EDT Laboratory Lab Mobile Phlebotomy [facility] [facility] [address] [facility] Mobile [facility] Draw [address] [facility] [place] [address] 05/24/2024 8:30 AM EDT Home Visit [facility], [facility] 132 [facility] [place] [address] Destiny Schultz, POPPY 132 [facility] [place] [address] 10/01/2024 1:00 PM EST Telemedicine Family Medicine [address] [place] [phone] Kusum Jones CRNP [address] [place] [address] [place] [address] 10/13/2024 11:30 AM EST Telemedicine Urology, [facility] [place] [address] Chandler Pena MD [address] [place] [address] 11/24/2024 1:40 PM EDT Office Visit Dermatology [address] [place] [address] Sheryl Pena PA-C [address] [place] [address] [place] [address] 04/18/2025 1:20 PM EDT Telemedicine Family Medicine [address] [place] [phone] Verónica Benavides MD [address] [place] [address] [place] [address] Health Maintenance Due Date Last Done Comments [...] Additional history exists CKD HGB USE SMARTSET 09241 04/02/202504/02, 04/02/2024, 05/26/2023, Additional history exists CKD PHOS USE SMARTSET 11522 04/02/2025 08/0 04/2024, 02/07/2023, 08/07/2021, Additional history [...] Documents on File Type Date Recorded Patient Principal Technologist Expl anation Advance Directives and Living Will 08/10/2021 ADVANCE DIRECTIVE / LIVING WILL LIVING WILL Healthcare Agents on File Name Relationship Healthcare Agent Relationshi p Communication Josselyn Judd Adult Child Health Care Power of Attor nathalie Care Teams Bench Shear Operator Relationship Specialty Start Date End Date Verónica Benavides MD [address] [place] [address] [place] [phone] PCP - General Family Medicine 09/16/14 documented as of this encounter
--- OUTSIDE RECORDS SUMMARY | 2024-04-24 11:09 | External Medical Summary | Summary of Care ---
Author Name Unknown Organization [facility] Address [address] [place] [address] Phone [phone] Care Team Providers Care Candlemaking Laborer Name Role Phone Verónica Benavides MD Primary Care Provide r Reason for Visit * Reason Comments Outpatient Testing Encounter Details Date Type Department Care Team (Late st Contact Info) Description 04/19/2024 9:50 AM EDT Laboratory Laboratory [address] [place] [phone] , Specimen Drop Off [address] [place] [phone] Dysuria; Chronic bacteriuria; Recurrent UTI; Type 2 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 disease, without long-term current use of insulin ([facility]) Allergies Active Allergy Reactions Criticality Noted Date [...] mouth in the morning. 08/08/2021 Active Nystatin 516038 UNIT/GM External Powder (Nystop)Indications: Lydia rash of [...] Tablet 3 07/08/2023 Active OneTouch Delica Plus [id number] :Type 2 diabetes mellitus with hemoglobin A1c goal of less than 8.0% ([facility]) Test up to two times daily or as directed by [facility] pharmacist 200 Each 3 07/11/2023 Active [...] no improvement on day 3, contact [facility] for possible home visit 1 Each [...] Oral Tablet (Aldactone)Indicatio ns:Non-ischemic cardiomyopathy (HCC) TAKE /2 TABLET BY MOUTH EVERY MORNING 45 Tablet [...] XL)Indications:Non-i schemic cardiomyopathy (HCC),Coronary artery disease involving [place] coronary artery of [place] heart without angina pectoris,HTN, goal below 140/90 [...] carrier 06/29/2021 Last Assessment & Plan: [facility] Triage Call: Reviewed last C&S [...] Continue synthroid Coronary artery disease invo lving [place] coronary artery of [place] heart without angina pectoris 07/03/2012 Overview: 60% [...] mRNA, LNP-s, No Pre serve, 2-Dose Series ([employer]) 08/29/2021,10/23/2020,10/02/2020 COVID-19, MRNA-LNP, 23-24, P F, 30 MCG/0.3 mL, 12 YRS AND ABOVE, IM ([employer]) 08/04/2023 Covid-19, Mrna, Lnp-s, Pf, B ivalent, 30 Mcg, IM, 12 yrs and above ([employer]) 08/02/2022 Pneumococcal Conjugate Vacc, 13 Valent (Prevnar) [...] EDT Laboratory Lab Mobile Phlebotomy [facility] [facility] [place] [address] Mv[facility], Gml Mobile Home Draw [address] [facility] [place] [address] 05/24/2024 8:30 AM EDT Home Visit [facility] 132 [facility] [place] [address] Destiny Schultz RN 132 [facility] [place] [address] 10/01/2024 1:00 PM EST Telemedicine Family Medicine [address] [place] [phone] Kusum Jones [address] [place] [address] 10/13/2024 11:30 AM EST Telemedicine Urology, [facility] 132 [facility] [place] [address] Chandler Pena MD [address] [place] [address] 11/24/2024 1:40 PM EDT Office Visit Dermatology [address] [place] [address] Sheryl Pena PA-C [address] [place] [address] [place] [address] 04/18/2025 1:20 PM EDT Telemedicine Family Medicine [address] [place] [phone] Verónica Benavides MD [address] [place] [address] [place] [address] Pending Results Name Type Priority Associated Diagnoses Date /Time CULTURE, URINE, QUANTITATIVE Lab Routine Dysuria Chronic bacteriuria Recurrent UTI 04/19/2024 9:50 AM EDT ALBUMIN / CREATININE RATIO, URINE Lab Routine Type 2 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 disease, without long-term current use of insulin ([facility]) 04/19/2024 9:50 AM EDT Health Maintenance Due Date Last [...] Additional history exists CKD HGB USE SMARTSET 62073 04/02/202504/02, 04/02/2024, 05/26/2023, Additional history exists CKD PHOS USE SMARTSET 73054 04/02/2025 08/0 04/2024, 02/07/2023, 08/07/2021, Additional history [...] as of this encounter Visit Diagnoses Diagnosis Dysuria Chronic bacteriuria Other nonspecific finding on examination of urine Recurrent UTI Urinary tract infection, site not specified Type 2 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 disease, without long-term current use of insulin (HCC) documented in this encounter Advance Directives Documents on File Type Date Recorded Patient Manager Care Management Expl anation Advance Directives and Living Will 08/10/2021 ADVANCE DIRECTIVE / LIVING WILL LIVING WILL Healthcare Agents on File Name Relationship Healthcare Agent [facility] Judd Adult Child Health Care Power of Attor nathalie Care Teams Candlemaking Laborer Relationship Specialty Start Date End Date Verónica Benavides MD [address] [place] [address] [place] [address] PCP - General Family Medicine 09/16/14 documented as of this encounter
--- OUTSIDE RECORDS SUMMARY | 2024-04-24 11:09 | External Medical Summary | Summary of Care ---
Author Name Unknown Organization [facility] Address [address] [place] [address] Phone [phone] Care Team Providers Care Hot Shot Name Role Phone Verónica Jiang MD Primary Care Provide r Reason for Visit * Reason Onset Date Comments [facility]: Acute 04/19/2024 Encounter Details Date Type Department Care Team (Late st Contact Info) Description 04/19/2024 Telephone [facility], [facility] [address] [place] [address] [facility], Nurse [place] [id number] [place] [address] [facility]: Acute Allergies [...] mouth in the morning. 08/08/2021 Active Nystatin 452849 UNIT/GM External Powder (Nystop)Indications :Lydia rash of [...] long-term current use of insulin ([facility]),Type 2 diabetes mellitus with hemoglobin A1c goal of less than 8.0% ([facility]) TEST UP TO FOUR TIMES [...] Tablet 3 07/08/2023 Active OneTouch Delica Plus [id number] s:Type 2 diabetes mellitus with hemoglobin A1c goal of less than 8.0% ([facility]) Test up to two times daily or as directed by [facility] pharmacist 200 Each 3 07/11/2023 [...] If no improvement on day 3, contact [facility] for possible home visit 1 [...] XL)Indications:Non- ischemic cardiomyopathy (HCC),Coronary artery disease involving [place] coronary artery of [place] heart without angina pectoris,HTN, goal below 140/90 [...] 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 Last Assessment & Plan: [facility] Triage Call: Reviewed last C&S [...] Continue synthroid Coronary artery disease invo lving [place] coronary artery of [place] heart without angina pectoris 07/03/2012 Overview: 60% [...] mRNA, LNP-s, No Pre serve, 2-Dose Series ([facility]) 08/29/2021,10/23/2020,10/02/2020 COVID-19, MRNA-LNP, 23-24, P F, 30 MCG/0.3 mL, 12 YRS AND ABOVE, IM ([email or web address]) 08/04/2023 Covid-19, Mrna, Lnp-s, Pf, B ivalent, 30 Mcg, IM, 12 yrs and above ([facility]) 08/02/2022 Influenza, Whole Virus 08/07/2000 Pneumococcal Conjugate [...] Encounter - Tali Patel RN - 04/19/2024 1:46 PM EDT Josselyn aware refill of pyridium placed She is aware to call [facility] with any additional concerns Tali Patel RN, BSN [facility] methods examinerPaste Maker * Addendum Note - Verónica Jiang MD - 04/19/2024 11:43 AM EDTAddended by: VERÓNICA JIANG on: 04/19/2024 11:43 AM Modules accepted: Orders * Telephone Encounter - Verónica Jiang MD - 04/19/2024 11:43 AM EDT Sent pyridium to [facility]. Standing urine test is ordered by urology. * Telephone Encounter - Berna Mathis PA-C - 04/19/2024 11:38 AM EDT Daughter contacted me via MyG. Consistent with Efudex use. Berna Mathis PA-C 04/19/2024 11:38 AM * Telephone Encounter - Tali Patel RN - 04/19/2024 10:18 AM EDT Images from the original note were not included. 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 PC received from Josselyn [facility] DTR states patient has another UTI Patient chronic UTIs DTR states she has a standing urine order from PCP And [facility] DTR states patient [...] PCP response may not occur today...sending to [facility] for refill today Please send refill of pyridium to [facility] as requested by Josselyn Did not pend as I am Unsure if I can pend medication if requesting a different provider to refill Also Routing to dermatology to advise on facial blister and if this is normal with use of Fluorouracil Treatment/Plan: Level of call: Acute Appointment scheduled for same day: No Provider Name: N/A Treatment plan until appointment: to [facility] for refill of pyridium F/u PC placed Call back instructions provided to patient. Tali Patel RN, BSN [facility] methods examinerPaste Maker documented in this encounter Plan of Treatment Upcoming Encounters Date Type Department Care Team (Late st Contact Info) Description 04/21/2024 10:00 AM EDT Scheduled Telephone [facility] [place], [place] [address] [place] [address] Coordinator, [facility] [address] [place] [address] 05/14/2024 7:00 AM EDT Laboratory Lab Mobile Phlebotomy [facility] [address] [place] [address] [facility], G[facility] Mobile Home Draw [address] [place] [address] 05/24/2024 8:30 AM EDT [facility] Visit [facility], [facility] [address] [facility] [place] [address] Destiny Schultz, RN 132 [facility] [place] [address] 10/01/2024 1:00 PM EST Telemedicine Family Medicine [address] [place] [address] Kusum Jones CRNP [address] [place] [address] [place] [address] 10/13/2024 11:30 AM EST Telemedicine Urology, [facility] [address] [facility] [place] [address] Chandler Pena MD 27 [facility] [place] [address] 11/24/2024 1:40 PM EDT Office Visit Dermatology [address] [place] [address] Sheryl Pena PA-C [address] [place] [address] [place] [address] 04/18/2025 1:20 PM EDT Telemedicine Family Medicine [address] [place] [address] Verónica Jiang MD [address] [place] [address] [place] [address] Health Maintenance Due Date Last Done Comments [...] Additional history exists CKD HGB USE SMARTSET 40875 04/02/202504/02, 04/02/2024, 05/26/2023, Additional history exists CKD PHOS USE SMARTSET 38720 04/02/2025 08/0 04/2024, 02/07/2023, 08/07/2021, Additional history [...] on File Type Date Recorded Patient Lead Cashier Expl anation Advance Directives and Living Will 08/10/2021 ADVANCE DIRECTIVE / LIVING WILL LIVING WILL Healthcare Agents on File Name Relationship Healthcare Agent Relationshi p Communication Josselyn Judd Adult Child Health Care Power of Attor nathalie Care Teams Hot Shot Relationship Specialty Start Date End Date Verónica Jiang MD [address] [place] [address] [place] [phone] PCP - General Family Medicine 09/16/14 documented as of this encounter
--- OUTSIDE RECORDS SUMMARY | 2024-04-24 11:09 | External Medical Summary | Summary of Care ---
Author Name Unknown Organization [facility] Address [address] [place] [address] Phone [phone] Care Team Providers Care Sizer Machine Name Role Phone Verónica Jiang MD Primary Care Provide r Reason for Visit * Reason Onset Date Comments Order Request 03/01/2024 Lift Bed order Encounter Details Date Type Department Care Team (Late st Contact Info) Description 03/01/2024 Telephone Family [address] [phone] Verónica Jiang MD [address] [place] [address] [place] [address] Order Request (Lift Bed order ) Allergies Active Allergy Reactions Criticality Noted Date Comments Adhesive Tape Medium 01/30/2022 Ibuprofen Hives 01/13/2012 Aspirin Hives,Rash 09/15/2000 Sulfamethoxazole-Trimeth oprim Nausea/vomiting,Othe r (Please comment) 10/27/2020 Dizziness Ciprofloxacin Hcl 06/16/2019 Hoarse, dizzy,disoriented Morphine 09/21/2021 Blacked out Penicillins Hives,Rash 09/15/2000 Prednisone 12/30/2017 Weakness/memory changes/blurred vision documented as of this encounter (statuses as of 04/05/2024) Medications Medication Sig Dispensed Refills Start Date [...] mouth in the morning. 1 Active Nystatin 322630 UNIT/GM External Powder (Nystop)Indications :Lydia rash of [...] XL)Indications:Non- ischemic cardiomyopathy (HCC),Coronary artery disease involving [place] coronary artery of [place] heart without angina pectoris,HTN, goal below 140/90 Take 1 Tablet by mouth every evening. 90 Tablet 11 3 Active Benzonatate 100 MG Oral Capsule [...] Tablet 3 3 Active OneTouch Delica Plus [id number] s:Type 2 diabetes mellitus with hemoglobin A1c goal of less than 8.0% ([facility]) Test up to two times daily or as directed by [facility] pharmacist 200 Each 3 3 Active Estrogens [...] If no improvement on day 3, contact [facility] for possible home visit 1 Each [...] directed by clinician. 5 Tablet 4 Active Docusate Sodium 50 MG/5ML Oral Liquid (Colace) Place 10 gtts to each ear for 30 min then irrigate. 120 mL 3 3 03/30/20 24 Discontinued Torsemide 20 MG Oral Tablet (Demadex)Indication s:Heart failure, systolic, due to idiopathic cardiomyopathy (HCC) Take 60 mg by mouth in the morning, 40 mg by mouth in the afternoon. Additional 20 mg in the afternoon ONLY if directed by health care provider for weight gain of 3 lbs or more. 180 Tablet 3 4 03/30/20 24 Discontinued Erythromycin 5 MG/GM Ophthalmic Ointment Apply .25 inch ribbon to right lower eyelid 4 times daily for 14 days then daily at bedtime 3.5 g 3 4 03/30/20 24 Discontinued Cefdinir 300 MG Oral Capsule (Omnicef) Take 1 Capsule by mouth in the morning and 1 Capsule before bedtime. Do all this for 3 days. 6 Capsule 4 03/04/20 24 documented as of this encounter (statuses as of 04/05/2024) Active Problems Problem Noted Date Diagnosed Date [...] Coronary artery disease invo lving [place] coronary artery of [place] heart without angina pectoris 07/03/2012 Overview: 60% [...] as of this encounter (statuses as of 04/05/2024) Resolved Problems Problem Noted Date Diagnosed Date [...] as of this encounter (statuses as of 04/05/2024) Immunizations Name Administration Dates Next Due COVID-19 mRNA, LNP-s, No Pre serve, 2-Dose Series ([facility]) 08/29/2021,10/23/2020,10/02/2020 COVID-19, MRNA-LNP, 23-24, P F, 30 MCG/0.3 mL, 12 YRS AND ABOVE, IM ([employer]) 08/04/2023 Covid-19, Mrna, Lnp-s, Pf, B ivalent, 30 Mcg, IM, 12 yrs and above ([facility]) 08/02/2022 Influenza, Whole Virus 08/07/2000 Pneumococcal Conjugate [...] encounter Miscellaneous Notes * Telephone Encounter - Medina Braswell RN - 04/05/2024 12:35 PM EDT On pcp desk for physical signature * Telephone Encounter - Verónica Jiang MD - 04/01/2024 1:43 PM EDT Signed letter * Addendum Note - Vernóica Jiang MD - 04/01/2024 1:14 PM EDTAddended by: VERÓNICA JIANG on: 04/01/2024 01:14 PM Modules accepted: Orders * Telephone Encounter - Vilma Broderick CMA - 04/01/2024 12:55 PM EDT Letter pended. * Telephone Encounter - Hermelinda Garrison OSA - 03/31/2024 11:31 AM EDT Caller requesting the following information to be faxed: Name/Company of caller: [employer] Information requested to be faxed: Stating needed, script for lift bed and letter of medical of necessity, 3 points of HIPAA, why she needs it and signature and date of signature, on letter head. Fax number: [phone] Attention to Name/Company: n/a Any additional information?: n/a * Telephone Encounter - Medina Braswell RN - 03/09/2024 3:59 PM EDT I faxed the order again * Telephone Encounter - Sarah Fernandez OSA - 03/09/2024 2:27 PM EDT Caller requesting the following information to be faxed: Name/Company of caller: [employer] Information requested to be faxed: Referral for PT, Script for DME for lift bed, and letter of Medical Necessity this should state pt's name, , her dx and why the dx requires the lift bed. Fax number: [phone] Attention to Name/Company: [employer] Any additional information?: Mimi states that the fax she received was blank pages so she is askingthis information to be re faxed * Telephone Encounter - Medina Braswell RN - 03/03/2024 1:33 PM EDT faxed * Telephone Encounter - Verónica Jiang MD - 03/03/2024 1:24 PM EDT Signed order * Telephone Encounter - Medina Braswell RN - 03/03/2024 1:16 PM EDT Order pended,if agreeble. Then we will fax to [facility] Pt has an appt with you in March If it comes back and we have to submit it thru [facility] for ANGI AGUIRRE, pt will need to wait until her appt, so we have clinic notes to send * Telephone Encounter - Nirmala Montero OSA - 03/01/2024 4:48 PM EDT Mimi from [facility] states patient is asking for a lift bed, a bed that swivels so she doesn't have to lift her legs and helps elevate her out of the bed. Requesting a letter of medical necessity and order Fax # documented in this encounter Plan of Treatment Upcoming Encounters Date Type Department Care Team (Late st Contact Info) Description 04/09/2024 2:30 PM EDT Home Visit [facility] 132 [facility] [place] [address] Destiny Schultz RN 132 [facility] [place] [address] 10/01/2024 1:00 PM EST Telemedicine Family Medicine [address] [place] [phone] [address]usum Jones [address] [place] [address] 10/13/2024 11:30 AM EST Telemedicine Urology, [facility] [address] [place] [address] Chandler Pena MD [address] [place] [address] 11/24/2024 1:40 PM EDT Office Visit Dermatology [address] [place] [address] Sheryl Pena PA-C [address] [place] [address] [place] [address] 04/18/2025 1:20 PM EDT Telemedicine Family Medicine [address] [place] [phone] Verónica Jiang MD [address] [place] [address] [place] [address] Health Maintenance Due Date Last Done Comments [...] Additional history exists CKD HGB USE SMARTSET 09990 04/02/202504/02, 04/02/2024, 05/26/2023, Additional history exists CKD PHOS USE SMARTSET 14430 04/02/2025 08/0 04/2024, 02/07/2023, 08/07/2021, Additional history [...] cardiomyopathy (HCC)- Primary Unspecified systolic heart failure Morbid obesity with BMI of 45.0-49.9, adult (HCC) Morbid obesity Lymphedema of both lower extremities Impaired mobility and ADLs Mechanical problems with limbs GENERAL OSTEOARTHROSIS Generalized osteoarthrosis, unspecified site documented in this encounter Advance Directives Documents on File Type Date Recorded Patient Literacy Coordinator Expl anation Advance Directives and Living Will 08/10/2021 ADVANCE DIRECTIVE / LIVING WILL LIVING WILL Healthcare Agents on File Name Relationship Healthcare Agent Relationshi p Communication Josselyn Judd Adult Child Health Care Power of Attor nathalie Care Teams Sizer Machine Relationship Specialty Start Date End Date Verónica Jiang MD [address] [place] [address] [place] [address] PCP - General Family Medicine 09/16/14 documented as of this encounter
--- OUTSIDE RECORDS SUMMARY | 2024-04-24 11:09 | External Medical Summary ---
Author Name Unknown Address Unknown Organization K01:[facility] [place] [address] [place] [address] Laboratory Report Ordering Provider Test Date Status APOLINAR ARMANDO 04/19/2024 09:50:07 Final Normal: <30 mg/g creatinine< br/>High: 30-300 mg/g creatinine
Very High: >300 mg/g creatinine
Nephrotic: >2200 mg/g creatinine Observation Date Value Abnormality Reference (Units ) Status Albumin, Urine 04/19/2024 09:50:07 7.39 (mg/dL) Final Creatinine, Urine 04/19/2024 09:50:07 38 (mg/dL) Final Albumin/Creatinine [Mass Ratio] in Urine 04/19/2024 09:50:07 194 Above high normal <30 (mg/g Creat) Final Performing Location [facility] [place] [address] [place] [address]
--- OUTSIDE RECORDS SUMMARY | 2024-04-24 11:10 | External Medical Summary | Summary of Care ---
Author Name Unknown Organization [facility] Address [address] [place] [address] Phone [phone] Care Team Providers Care Human Resources Office Assistant Name Role Phone Verónica Benavides MD Primary Care Provide r Reason for Visit * Reason Onset Date Comments Order Request 03/01/2024 Lift Bed order Encounter Details Date Type Department Care Team (Late st Contact Info) Description 03/01/2024 Telephone Family [address] [phone] Verónica Benavides MD [address] [place] [address] [place] [address] Order Request (Lift Bed order ) Allergies Active Allergy Reactions Criticality Noted Date Comments Adhesive Tape Medium 01/30/2022 Ibuprofen Hives 01/13/2012 Aspirin Hives,Rash 09/15/2000 Sulfamethoxazole-Trimeth oprim Nausea/vomiting,Othe r (Please comment) 10/27/2020 Dizziness Ciprofloxacin Hcl 06/16/2019 Hoarse, dizzy,disoriented Morphine 09/21/2021 Blacked out Penicillins Hives,Rash 09/15/2000 Prednisone 12/30/2017 Weakness/memory changes/blurred vision documented as of this encounter (statuses as of 04/01/2024) Medications Medication Sig Dispensed Refills Start Date [...] mouth in the morning. 1 Active Nystatin [id number] UNIT/GM External Powder (Nystop)Indications :Lydia rash of [...] XL)Indications:Non- ischemic cardiomyopathy (HCC),Coronary artery disease involving [place] coronary artery of [place] heart without angina pectoris,HTN, goal below [...] of insulin ([facility]),Type 2 diabetes mellitus with hemoglobin A1c goal of less than 8.0% ([facility]) TEST UP TO FOUR TIMES DAILY [...] Tablet 3 3 Active OneTouch Delica Plus Nvbhhk47BHmwwkzzlnb s:Type 2 diabetes mellitus with hemoglobin A1c goal of less than 8.0% ([facility]) Test up to two times daily or as directed by [facility] pharmacist 200 Each 3 3 Active Estrogens [...] If no improvement on day 3, contact [facility] for possible home visit 1 Each 4 [...] as of this encounter (statuses as of 04/01/2024) Active Problems Problem Noted Date Diagnosed Date [...] 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 Last Assessment & Plan: [facility] Triage Call: Reviewed last C&S [...] Continue synthroid Coronary artery disease invo lving [place] coronary artery of [place] heart without angina pectoris 07/03/2012 Overview: [...] as of this encounter (statuses as of 04/01/2024) Resolved Problems Problem Noted Date Diagnosed Date [...] as of this encounter (statuses as of 04/01/2024) Immunizations Name Administration Dates Next Due COVID-19 mRNA, LNP-s, No Pre serve, 2-Dose Series ([employer]) 08/29/2021,10/23/2020,10/02/2020 COVID-19, MRNA-LNP, 23-24, P F, 30 MCG/0.3 mL, 12 YRS AND ABOVE, IM ([email or web address]) 08/04/2023 Covid-19, Mrna, Lnp-s, Pf, B ivalent, 30 Mcg, IM, 12 yrs and above ([facility]) 08/02/2022 Influenza, Whole Virus 08/07/2000 Pneumococcal Conjugate [...] encounter Miscellaneous Notes * Telephone Encounter - Hermelinda Garrison OSA - 03/31/2024 11:31 AM EDT Caller requesting the following information to be faxed: Name/Company of caller: [employer] Information requested to be faxed: Stating needed, script for lift bed and letter of medical of necessity, 3 points of HIPAA, why she needs it and signature and date of signature, on letter head. Fax number: [phone] Attention to Name/Company: n/a Any additional information?: n/a * Telephone Encounter - Medina Braswell RN - 03/09/2024 3:59 PM EDT I faxed the order again * Telephone Encounter - Sarah Fernandez OSA - 03/09/2024 2:27 PM EDT Caller requesting the following information to be faxed: Name/Company of caller: [employer] Information requested to be faxed: Referral for PT, Script for DME for lift bed, and letter of Medical Necessity this should state pt's name, , her dx and why the dx requires the lift bed. Fax number: [phone] Attention to Name/Company: [employer] Any additional information?: Mimi states that the fax she received was blank pages so she is askingthis information to be re faxed * Telephone Encounter - Medina Braswell RN - 03/03/2024 1:33 PM EDT faxed * Telephone Encounter - Verónica Benavides MD - 03/03/2024 1:24 PM EDT Signed order * Telephone Encounter - Medina Braswell RN - 03/03/2024 1:16 PM EDT Order pended,if agreeble. Then we will fax to [facility] Pt has an appt with you in March If it comes back and we have to submit it thru [facility] for Megan AGUIRRE, pt will need to wait until her appt, so we have clinic notes to send * Telephone Encounter - Nirmala Montero OSA - 03/01/2024 4:48 PM EDT Mimi from [facility] states patient is asking for a lift bed, a bed that swivels so she doesn't have to lift her legs and helps elevate her out of the bed. Requesting a letter of medical necessity and order Fax # documented in this encounter Plan of Treatment Upcoming Encounters Date Type Department Care Team (Late st Contact Info) Description 04/02/2024 7:05 AM EDT Laboratory Lab [facility] [address] [facility] [place] [address] [facility], [facility] Mobile Home Draw [address] [place] [address] 04/09/2024 2:30 PM EDT [facility], [facility] [address] [place] [address] Destiny Schultz, RN 132 [facility] [place] [address] 10/01/2024 1:00 PM EST Telemedicine Family Medicine [address] [place] [phone] Kusum Jones CRNP [address] [place] [address] [place] [address] 10/13/2024 11:30 AM EST Telemedicine Urology, Health system [address] [place] [address] Chandler Pena MD [address] [place] [address] 11/24/2024 1:40 PM EDT Office Visit Dermatology [address] [place] [address] Sheryl Pena PA-C [address] [place] [address] [place] [address] 04/18/2025 1:20 PM EDT Telemedicine Family Medicine [address] [place] [phone] Verónica Benavides MD [address] [place] [address] [place] [address] Health Maintenance Due Date Last Done Comments [...] Additional history exists CKD PHOS USE SMARTSET 83795 02/08/202401/23, 08/07/2021, 11/09/2019, Additional history exists TSH 03/25/2024 03/25/2023, 07/0 10/2022, 10/28/2022, Additional history exists Influenza Vaccine (FLU shot) (#1) 2024 06/20/2022, 06/20/2022, 06/29/2021, Additional history exists CKD HGB USE SMARTSET 69654 05/26/202405/26, 05/26/2023, 04/07/2023, Additional history exists Pneumococcal [...] on File Type Date Recorded Patient Manager Primary Expl anation Advance Directives and Living Will 08/10/2021 ADVANCE DIRECTIVE / LIVING WILL LIVING WILL Healthcare Agents on File Name Relationship Healthcare Agent [facility] Communication Josselyn Judd Adult Child Health Care Power of Attor nathalie Care Teams Human Resources Office Assistant Relationship Specialty Start Date End Date Verónica Benavides MD [address] [place] [address] [place] [address] PCP - General Family Medicine 09/16/14 documented as of this encounter
--- OUTSIDE RECORDS SUMMARY | 2024-04-24 11:10 | External Medical Summary | Summary of Care ---
Author Name Unknown Organization [facility] Address [address] [place] [address] Phone [phone] Care Team Providers Care Cat Driver Name Role Phone Verónica Jiang MD Primary Care Provide r Reason for Visit * Reason Onset Date Comments Order Request 03/01/2024 Lift Bed order Encounter Details Date Type Department Care Team (Late st Contact Info) Description 03/01/2024 Telephone Family [address] [address] Verónica Jiang MD [address] [place] [address] [place] [address] Order Request (Lift Bed order ) [...] mouth in the morning. 1 Active Nystatin 474599 UNIT/GM External Powder (Nystop)Indications :Lydia rash of [...] XL)Indications:Non- ischemic cardiomyopathy (HCC),Coronary artery disease involving [place] coronary artery of [place] heart without angina pectoris,HTN, goal below 140/90 [...] Tablet 3 3 Active OneTouch Delica Plus [id number] s:Type 2 diabetes mellitus with hemoglobin A1c goal of less than 8.0% ([facility]) Test up to two times daily or as directed by [facility] pharmacist 200 Each 3 3 Active [...] If no improvement on day 3, contact [facility] for possible home visit 1 Each 4 [...] Continue synthroid Coronary artery disease invo lving [place] coronary artery of [place] heart without angina pectoris 07/03/2012 Overview: 60% [...] mRNA, LNP-s, No Pre serve, 2-Dose Series ([employer]) 08/29/2021,10/23/2020,10/02/2020 COVID-19, MRNA-LNP, 23-24, P F, 30 MCG/0.3 mL, 12 YRS AND ABOVE, IM ([employer]) 08/04/2023 Covid-19, Mrna, Lnp-s, Pf, B ivalent, 30 Mcg, IM, 12 yrs and above ([employer]) 08/02/2022 Influenza, Whole Virus 08/07/2000 Pneumococcal Conjugate [...] EDT Signed letter * Addendum Note - Verónica Jiang MD - 04/01/2024 1:14 PM EDTAddended by: VERÓNICA JIANG on: 04/01/2024 01:14 PM Modules accepted: Orders * Telephone Encounter - Vilma Broderick CMA - 04/01/2024 12:55 PM EDT Letter pended. * Telephone Encounter - Hermelinda Garrison OSA - 03/31/2024 11:31 AM EDT Caller requesting the following information to be faxed: Name/Company of caller: Mimi[employer] Information requested to be faxed: Stating needed, script for lift bed and letter of medical of necessity, 3 points of HIPAA, why she needs it and signature and date of signature, on letter head. Fax number: [phone] Attention to Name/Company: n/a Any additional information?: [...] dx requires the lift bed. Fax number: [phone] Attention to Name/Company: [facility] Any additional information?: Mimi states that the [...] pended,if agreeble. Then we will fax to [facility] Pt has an appt with you in March If it comes back and we have to submit it thru [facility] for ANGI AGUIRRE, pt will need to wait until her appt, so we have clinic notes to send * Telephone Encounter - Nirmala Montero OSA - 03/01/2024 4:48 PM EDT Mimi from [facility] states patient is asking for [...] EDT Laboratory Lab Mobile Phlebotomy [facility] [address] [facility] [place] [address] Mvmg, Gml Mobile Home Draw [address] [facility] [place] [address] 04/09/2024 2:30 PM EDT Home Visit [facility] 132 [facility] [place] [address] Destiny Schultz RN 132 [facility] [place] [address] 10/01/2024 1:00 PM EST Telemedicine Family Medicine [address] [place] [phone] Kusum Jones [address] [place] [address] 10/13/2024 11:30 AM EST Telemedicine Urology, [facility] [address] [place] [address] Chandler Pena MD [address] [place] [address] 11/24/2024 1:40 PM EDT Office Visit Dermatology [address] [place] [address] Sheryl Pena PA-C [address] [place] [address] [place] [address] 04/18/2025 1:20 PM EDT Telemedicine Family Medicine [address] [place] [phone] Verónica Jiang MD [address] [place] [address] [place] [address] Health Maintenance Due Date Last Done Comments [...] Additional history exists CKD PHOS USE SMARTSET 55859 02/08/2024 06/1 01/2023, 08/07/2021, 11/09/2019, Additional history exists TSH 03/25/2024 03/25/2023, 07/0 10/2022, 10/28/2022, Additional history exists Influenza Vaccine (FLU shot) (#1) 2024 06/20/2022, 06/20/2022, 06/29/2021, Additional history exists CKD HGB USE SMARTSET 58849 05/26/202405/26, 05/26/2023, 04/07/2023, Additional history exists Pneumococcal [...] Documents on File Type Date Recorded 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
--- OUTSIDE RECORDS SUMMARY | 2024-04-24 11:10 | External Medical Summary ---
Author Name Unknown Address Unknown Organization K01:LABORATORY [facility] [place] - [address] [place] [address] Laboratory Report Ordering Provider Test Date Status APOLINAR ARMANDO 04/02/2024 09:53:00 Final Observation Date Value Abnormality Reference (Units ) Status TSH 04/02/2024 09:53:00 6.01 Above high normal 0. 27-4.20 (uIU/mL) Final Performing Location LABORATORY C - [address] [place] [address]
--- OUTSIDE RECORDS SUMMARY | 2024-04-24 11:10 | External Medical Summary ---
Author Name Unknown Address Unknown Organization K01:LABORATORY [facility] [place] - [address] [facility] [address] [facility] [address] Laboratory Report Ordering Provider Test Date Status APOLINAR ARMANDO 04/02/2024 09:53:00 Final Observation Date Value Abnormality Reference (Units ) Status BUN 04/02/2024 09:53:00 27 Above high normal 6-20 (mg/dL) Final Creatinine 04/02/2024 09:53:00 0.9 0.5-1.0 (mg/dL) Final Glomerular filtration rate/1.73 sq M.predicted [Volume Rate/Area] in Serum, Plasma or Blood by Creatinine-based formula (CKD-EPI) 04/02/2024 09:53:00 61 >=60 (mL/min) Final eGFR is calculated based on the CKD-EPI 2020 equation. Sodium 04/02/2024 09:53:00 140 135-146 (m mol/L) Final Potassium 04/02/2024 09:53:00 4.0 3.5-5.1 (m mol/L) Final Cl 04/02/2024 09:53:00 98 98-107 (mm ol/L) Final CO2 04/02/2024 09:53:00 27 22-32 (mmo l/L) Final Anion gap 04/02/2024 09:53:00 15 7-15 (mmol /L) Final Glucose 04/02/2024 09:53:00 184 Above high normal 70 -120 (mg/dL) Final Calcium 04/02/2024 09:53:00 8.9 8.4-10.2 ( mg/dL) Final Performing Location LABORATORY [facility] [place] - [address] [place] [address]
--- OUTSIDE RECORDS SUMMARY | 2024-04-24 11:10 | External Medical Summary | Summary of Care ---
Author Name Unknown Organization [facility] Address [address] [place] [address] Phone [phone] Care Team Providers Care Real Estate Transaction Coordinator Name Role Phone Verónica Jiang MD Primary Care Provide r Reason for Visit * Reason Onset Date Comments Order Request 03/01/2024 Lift Bed order Encounter Details Date Type Department Care Team (Late st Contact Info) Description 03/01/2024 Telephone Family [address] [address] Verónica Jiang MD [address] [place] [address] [place] [address] Order Request (Lift Bed order ) [...] mouth in the morning. 1 Active Nystatin [id number] UNIT/GM External Powder (Nystop)Indications :Lydia rash of [...] XL)Indications:Non- ischemic cardiomyopathy (HCC),Coronary artery disease involving [place] coronary artery of [place] heart without angina pectoris,HTN, goal below 140/90 [...] Tablet 3 3 Active OneTouch Delica Plus [id number] s:Type 2 diabetes mellitus with hemoglobin A1c goal of less than 8.0% ([facility]) Test up to two times daily or as directed by [facility] pharmacist 200 Each 3 3 Active [...] Continue synthroid Coronary artery disease invo lving [place] coronary artery of [place] heart without angina pectoris 07/03/2012 Overview: 60% [...] mRNA, LNP-s, No Pre serve, 2-Dose Series ([employer]) 08/29/2021,10/23/2020,10/02/2020 COVID-19, MRNA-LNP, 23-24, P F, 30 MCG/0.3 mL, 12 YRS AND ABOVE, IM ([employer]) 08/04/2023 Covid-19, Mrna, Lnp-s, Pf, B ivalent, 30 Mcg, IM, 12 yrs and above ([employer]) 08/02/2022 Influenza, Whole Virus 08/07/2000 Pneumococcal Conjugate [...] information to be faxed: Name/Company of caller: Mimi[employer] Information requested to be faxed: Stating needed, script for lift bed and letter of medical of necessity, 3 points of HIPAA, why she needs it and signature and date of signature, on letter head. Fax number: [phone] Attention to Name/Company: n/a Any additional information?: [...] dx requires the lift bed. Fax number: [phone] Attention to Name/Company: [facility] Any additional information?: Mimi states that the [...] pended,if agreeble. Then we will fax to [facility] Pt has an appt with you in March If it comes back and we have to submit it thru [facility] for ANGI AGUIRRE, pt will need to wait until her appt, so we have clinic notes to send * Telephone Encounter - Nirmala Montero OSA - 03/01/2024 4:48 PM EDT Mimi from [facility] states patient is asking for a lift [...] EDT Laboratory Lab Mobile Phlebotomy [facility] [address] [facility] [place] [address] Mvmg, Gml Mobile Home Draw [address] [facility] [place] [address] 04/09/2024 2:30 PM EDT [facility] 132 [facility] [place] [address] Destiny Schultz RN 132 [facility] [place] [address] 10/01/2024 1:00 PM EST Telemedicine Family Medicine [address] [place] [phone] Kusum Jones [address] [place] [address] 10/13/2024 11:30 AM EST Telemedicine Urology, [facility] [address] [place] [address] Chandler Pena MD 27 [place] [address] 11/24/2024 1:40 PM EDT Office Visit Dermatology [address] [place] [address] Sheryl Pena PA-C [address] [place] [address] [place] [address] 04/18/2025 1:20 PM EDT Telemedicine Family Medicine [address] [place] [phone] Verónica Jiang MD [address] [place] [address] [place] [address] Health Maintenance Due Date Last Done Comments [...] Additional history exists CKD PHOS USE SMARTSET 79049 02/08/2024 06/1 01/2023, 08/07/2021, 11/09/2019, Additional history exists TSH 03/25/2024 03/25/2023, 07/0 10/2022, 10/28/2022, Additional history exists Influenza Vaccine (FLU shot) (#1) 2024 06/20/2022, 06/20/2022, 06/29/2021, Additional history exists CKD HGB USE SMARTSET 78099 05/26/202405/26, 05/26/2023, 04/07/2023, Additional history exists Pneumococcal [...] Documents on File Type Date Recorded 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
--- OUTSIDE RECORDS SUMMARY | 2024-04-24 11:10 | External Medical Summary ---
Author Name Unknown Address Unknown Organization K01:LABORATORY [facility] [place] - [address] [place] [address] Laboratory Report Ordering Provider Test Date Status APOLINAR ARMANDO 04/02/2024 09:53:00 Final Observation Date Value Abnormality Reference (Units ) Status Triglyceride 04/02/2024 09:53:00 71 <=174 ( mg/dL) Final Triglyceride Reference Range s (mg/dL):
<150 Acceptable
150-174 Borderline high
175-499 High
>=500 Very high Cholesterol 04/02/2024 09:53:00 131 <200 (mg /dL) Final Total Cholesterol Reference Ranges (mg/dL):
<200 Desirable
200-239 Borderline high
>=240 High HDL 04/02/2024 09:53:00 44 Below low normal >49 (mg/dL) Final HDL Cholesterol Reference Ra nges (mg/dL):
>=60 High (Desirable)
<50 Low (Undesirable) For Females
<40 Low (Undesirable) For Males NON-HDL CHOLESTEROL 04/02/2024 09:53:00 87 <=159 (mg/dL) Final Non-HDL Cholesterol Referenc e Range (mg/dL):
<100 Target level for high risk ASCVD patient
<130 Optimal for general population
130-159 Near optimal for general population
160-189 Borderline High
190-219 High
>=220 Very High LDL, (calculated) 04/02/2024 09:53:00 73 <= 129 (mg/dL) Final LDL Cholesterol Reference Ra nges (mg/dL):
<70 Target level for high risk ASCVD patient
<100 Optimal for general population
100-129 Near optimal for general population
130-159 Borderline high
160-189 High
>=190 Very high Performing Location LABORATORY [facility] [place] - [address] [facility] [address]
--- OUTSIDE RECORDS SUMMARY | 2024-04-24 11:10 | External Medical Summary | Summary of Care ---
Author Name Unknown Organization [facility] Address [address] [place] [address] Phone [phone] Care Team Providers Care Regrinder Name Role Phone Verónica Benavides MD Primary Care Provide r Reason for Visit * Reason Onset Date Comments Order Request 03/01/2024 Lift Bed order Encounter Details Date Type Department Care Team (Late st Contact Info) Description 03/01/2024 Telephone Family [address] [address] Verónica Benavides MD [address] [place] [address] [place] [address] Order Request (Lift Bed order ) Allergies Active Allergy Reactions Criticality Noted Date Comments Adhesive Tape Medium 01/30/2022 Ibuprofen Hives 01/13/2012 Aspirin Hives,Rash 09/15/2000 Sulfamethoxazole-Trimeth oprim Nausea/vomiting,Othe r (Please comment) 10/27/2020 Dizziness Ciprofloxacin Hcl 06/16/2019 Hoarse, dizzy,disoriented Morphine 09/21/2021 Blacked out Penicillins Hives,Rash 09/15/2000 Prednisone 12/30/2017 Weakness/memory changes/blurred vision documented as of this encounter (statuses as of 03/31/2024) Medications Medication Sig Dispensed Refills Start Date [...] mouth in the morning. 1 Active Nystatin [id number] UNIT/GM External Powder (Nystop)Indications :Lydia rash of [...] XL)Indications:Non- ischemic cardiomyopathy (HCC),Coronary artery disease involving [place] coronary artery of [place] heart without angina pectoris,HTN, goal below [...] Tablet 3 3 Active OneTouch Delica Plus [id number] s:Type 2 diabetes mellitus with hemoglobin A1c goal of less than 8.0% ([facility]) Test up to two times daily or as directed by [facility] pharmacist 200 Each 3 3 Active Estrogens [...] If no improvement on day 3, contact [facility] for possible home visit 1 Each [...] as of this encounter (statuses as of 03/31/2024) Active Problems Problem Noted Date Diagnosed Date [...] Continue synthroid Coronary artery disease invo lving [place] coronary artery of [place] heart without angina pectoris 07/03/2012 Overview: [...] as of this encounter (statuses as of 03/31/2024) Resolved Problems Problem Noted Date Diagnosed Date [...] as of this encounter (statuses as of 03/31/2024) Immunizations Name Administration Dates Next Due COVID-19 mRNA, LNP-s, No Pre serve, 2-Dose Series ([employer]) 08/29/2021,10/23/2020,10/02/2020 COVID-19, MRNA-LNP, 23-24, P F, 30 MCG/0.3 mL, 12 YRS AND ABOVE, IM ([employer]) 08/04/2023 Covid-19, Mrna, Lnp-s, Pf, B ivalent, 30 Mcg, IM, 12 yrs and above ([employer]) 08/02/2022 Influenza, Whole Virus 08/07/2000 Pneumococcal Conjugate [...] of signature, on letter head. Fax number: [phone] Attention to Name/Company: n/a Any additional information?: n/a * Telephone Encounter - Medina Braswell RN - 03/09/2024 3:59 PM EDT I faxed the order again * Telephone Encounter - Sarah Fernandez OSA - 03/09/2024 2:27 PM EDT Caller requesting the following information to be faxed: Name/Company of caller: Mimi [employer] Information requested to be faxed: Referral for PT, Script for DME for lift bed, and letter of Medical Necessity this should state pt's name, , her dx and why the dx requires the lift bed. Fax number: [phone] Attention to Name/Company: Mimi [facility] Any additional information?: Mimi states that the [...] pended,if agreeble. Then we will fax to [facility] Pt has an appt with you in March If it comes back and we have to submit it thru [facility] for Megan AGUIRRE, pt will need to wait until her appt, so we have clinic notes to send * Telephone Encounter - Nirmala Montero OSA - 03/01/2024 4:48 PM EDT Mimi from [facility] states patient is asking for a lift [...] EDT Laboratory Lab Mobile Phlebotomy [facility] [address] [facility] [place] [address] Mvmg, Gml Mobile Home Draw [address] [facility] [place] [address] 04/09/2024 2:30 PM EDT [facility] [address] [place] [address] Destiny Schultz, RN [facility] [place] [address] 10/01/2024 1:00 PM EST Office Visit Family Medicine [address] [place] [phone] Kusum Jones CRNP [address] [place] [address] [place] [address] 10/13/2024 11:30 AM EST Telemedicine Urology, [facility] [address] [place] [address] Chandler Pena MD [address] [place] [address] 11/24/2024 1:40 PM EDT Office Visit Dermatology [address] [place] [address] Sheryl Pena PA-C [address] [place] [address] [place] [address] 04/18/2025 1:20 PM EDT Office Visit Family Medicine [address] [place] [phone] Verónica Benavides MD [address] [place] [address] [place] [address] Health Maintenance Due Date Last Done Comments [...] Additional history exists CKD PHOS USE SMARTSET 33136 02/08/202401/23, 08/07/2021, 11/09/2019, Additional history exists TSH 03/25/2024 03/25/2023, 07/0 10/2022, 10/28/2022, Additional history exists Influenza Vaccine (FLU shot) (#1) 2024 06/20/2022, 06/20/2022, 06/29/2021, Additional history exists CKD HGB USE SMARTSET 91406 05/26/202405/26, 05/26/2023, 04/07/2023, Additional history exists Pneumococcal [...] Documents on File Type Date Recorded 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
--- OUTSIDE RECORDS SUMMARY | 2024-04-24 11:10 | External Medical Summary | Summary of Care ---
Author Name Unknown Organization [facility] Address [address] [place] [address] Phone [phone] Care Team Providers Care Assistant Media Planner Name Role Phone Verónica Benavides MD Primary Care Provide r Encounter Details Date Type Department Care Team (Late st Contact Info) Description 04/01/2024 Orders Only PATIENT PORTAL DO NOT DELETE THIS DEPT USED BY [place], [place] [id number] Allergies Active Allergy Reactions Criticality Noted Date [...] mouth in the morning. 08/08/2021 Active Nystatin 173419 UNIT/GM External Powder (Nystop)Indications: Lydia rash of [...] XL)Indications:Non-i schemic cardiomyopathy (HCC),Coronary artery disease involving [place] coronary artery of [place] heart without angina pectoris,HTN, goal below 140/90 Take 1 Tablet by mouth every evening. 90 Tablet 11 02/27/2023 Active Benzonatate 100 MG Oral Capsule Take [...] Tablet 3 07/08/2023 Active OneTouch Delica Plus [id number] :Type 2 diabetes mellitus with hemoglobin A1c [...] If no improvement on day 3, contact [facility] for possible home visit 1 Each 11/28/2023 [...] pain with urination 6 Tablet 03/20/2024 Active Cephalexin 500 MG Oral Capsule Take 1 Capsule by mouth in the morning and 1 Capsule before bedtime. Do all this for 14 days. 28 Capsule 03/20/2024 Active Fosfomycin Tromethamine 3 GM Oral [...] at bedtime. 90 Capsule 1 03/30/2024 Active documented as of this encounter (statuses [...] Continue synthroid Coronary artery disease invo lving [place] coronary artery of [place] heart without angina pectoris 07/03/2012 Overview: 60% [...] mRNA, LNP-s, No Pre serve, 2-Dose Series ([employer]) 08/29/2021,10/23/2020,10/02/2020 COVID-19, MRNA-LNP, 23-24, P F, 30 MCG/0.3 mL, 12 YRS AND ABOVE, IM ([employer]) 08/04/2023 Covid-19, Mrna, Lnp-s, Pf, B ivalent, [...] EDT Laboratory Lab Mobile Phlebotomy [facility] [address] [place] [facility] [place] [address] Mvmg, Gml Mobile Home Draw [address] [place] [address] 04/09/2024 2:30 PM EDT [facility] [address] [place] [address] Destiny Schultz RN [address] [place] [address] 10/01/2024 1:00 PM EST Telemedicine Family Medicine [address] [place] [phone] Kusum Jones [address] [place] [address] 10/13/2024 11:30 AM EST Telemedicine Urology, [facility] [address] [place] [address] Chandler Pena MD [address] [place] [address] 11/24/2024 1:40 PM EDT Office Visit Dermatology [address] [place] [address] Sheryl Pena PA-C [address] [place] [address] [place] [address] 04/18/2025 1:20 PM EDT Telemedicine Family Medicine [address] [place] [phone] Verónica Benavides MD [address] [place] [address] [place] [address] Health Maintenance Due Date Last Done Comments Zoster Vaccines (1 of 2) 1985 Adult Wellness Visit 09/11/2016 09/11/2015 DXA Scan 04/02/2020 04/02/2017, 12/24, 11/05/2007 Depression Screening 05/24/2020 05/24/2019 Diabetic Foot Exam 11/08/2020 11/09/2019, 0 09/01/2018, 08/28/2017, Additional history exists HbA1c 08/13/2023 02/11/2023, 10/23, 01/11/2022, Additional history exists DTaP,Tdap,and Td Vaccines (2 - Td or Tdap) 11/16/2023 11/15/2013, 03/29/2008, 03/29/2008 COVID-19 Vaccine ( - season) 2023 08/04/2023, 08/02/2022, 08/02/2022, Additional history exists Diabetic Eye Exam 12/22/2023 12/21/2022, , 03/10/2021, Additional history exists Albumin/Creatinine Ratio 02/08/2024 023, 01/18/2022, 12/23/2017, Additional history exists CKD PHOS USE SMARTSET 09879 02/08/202401/23, 08/07/2021, 11/09/2019, Additional history exists TSH 03/25/2024 03/25/2023, 07/0 10/2022, 10/28/2022, Additional history exists Influenza Vaccine (FLU shot) (#1) 2024 06/20/2022, 06/20/2022, 06/29/2021, Additional history exists CKD HGB USE SMARTSET 71365 05/26/202405/26, 05/26/2023, 04/07/2023, Additional history exists Pneumococcal [...] Documents on File Type Date Recorded 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
--- OUTSIDE RECORDS SUMMARY | 2024-04-24 11:10 | External Medical Summary | Summary of Care ---
Author Name Unknown Organization [facility] Address [address] [place] [address] Phone [phone] Care Team Providers Care Chart Calculator Name Role Phone Verónica Benavides MD Primary Care Provide r Reason for Visit * Reason Onset Date Comments Appointment 03/31/2024 Return in about 6 months (around 09/30/2024) for Clinic Visit. Encounter Details Date Type Department Care Team (Late st Contact Info) Description 03/31/2024 Telephone Family Medicine [address] [address] Verónica Benavides MD [address] [place], [place] [address] [address] Appointment (Return in about 6 months (nilda... Allergies Active Allergy Reactions Criticality Noted Date [...] mouth in the morning. 08/08/2021 Active Nystatin 127653 UNIT/GM External Powder (Nystop)Indications: Lydia rash of [...] XL)Indications:Non-i schemic cardiomyopathy (HCC),Coronary artery disease involving habematolel coronary artery of habematolel heart without angina pectoris,HTN, goal below 140/90 [...] A1c goal of less than 8.0% (HCC) TEST UP TO FOUR TIMES DAILY 400 [...] Tablet 3 07/08/2023 Active OneTouch Delica Plus [id number] :Type 2 diabetes mellitus with hemoglobin A1c goal of less than 8.0% ([facility]) Test up to two times daily or as directed by [facility] pharmacist 200 Each 3 07/11/2023 Active [...] If no improvement on day 3, contact [facility] for possible home visit [...] 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 Last Assessment & Plan: [facility] Triage Call: Reviewed last [...] Continue synthroid Coronary artery disease invo lving habematolel coronary artery of habematolel heart without angina pectoris 07/03/2012 Overview: 60% [...] mRNA, LNP-s, No Pre serve, 2-Dose Series (Microarrays) 08/29/2021,10/23/2020,10/02/2020 COVID-19, MRNA-LNP, 23-24, P F, 30 MCG/0.3 mL, 12 YRS AND ABOVE, IM ([employer] Systems-ComirnatAttendify) 08/04/2023 Covid-19, Mrna, Lnp-s, Pf, B ivalent, 30 Mcg, IM, 12 yrs and above (Microarrays) 08/02/2022 Pneumococcal Conjugate Vacc, 13 Valent (Prevnar) [...] encounter Miscellaneous Notes * Telephone Encounter - Nato Friend OSA - 03/31/2024 3:49 PM EDT Okay, thank you . I will get switched to Video and inform daughter. * Telephone Encounter - Verónica Benavides MD - 03/31/2024 3:44 PM EDT OK for Video. She is also seen by [facility] * Telephone Encounter - Nato Friend OSA - 03/31/2024 11:56 AM EDT Pt had Video appt 03/30/2024. Nothing avail medhat/ [place], so made appt w/ Kusum. Made the appt as inperson. Also scheduled the next [address] Benavides as in person. Per daughters MyChart response, would like those to be video appts unless having problems. Is this ok or do you need them as inperson? Please advise. Thank you. documented in this encounter Plan of Treatment Upcoming Encounters Date Type Department Care Team (Late st Contact Info) Description 04/02/2024 7:05 AM EDT Laboratory Lab Mobile Phlebotomy [facility] [address] [facility] [place] [address] [facility], Gml Mobile Home Draw [address] [facility] [place] [address] 04/09/2024 2:30 PM EDT [facility], [facility] 132 [facility] [place] [address] Destiny Schultz, POPPY 132 [facility] [place] [address] 10/01/2024 1:00 PM EST Telemedicine Family Medicine [address] [place] [phone] Kusum Jones CRNP [address] [place] [address] [place] [address] 10/13/2024 11:30 AM EST Telemedicine Urology, [facility] 132 [facility] [place] [address] Chandler Pena MD [address] [place] [address] 11/24/2024 1:40 PM EDT Office Visit Dermatology [address] [place] [address] Sheryl Pena PA-C [address] [place] [address] [place] [address] 04/18/2025 1:20 PM EDT Telemedicine Family Medicine [address] [place] [phone] Verónica Benavides MD [address] [place] [address] [place] [address] Health Maintenance Due Date [...] Additional history exists CKD PHOS USE SMARTSET 66705 02/08/202401/23, 08/07/2021, 11/09/2019, Additional history exists TSH 03/25/2024 03/25/2023, 07/0 10/2022, 10/28/2022, Additional history exists Influenza Vaccine (FLU shot) (#1) 2024 06/20/2022, 06/20/2022, 06/29/2021, Additional history exists CKD HGB USE SMARTSET 94459 05/26/202405/26, 05/26/2023, 04/07/2023, Additional history exists Pneumococcal [...] Documents on File Type Date Recorded Patient Exchange Administrator Expl anation Advance Directives and Living Will 08/10/2021 ADVANCE DIRECTIVE / LIVING WILL LIVING WILL Healthcare Agents on File Name Relationship Healthcare Agent Relationshi p Communication Josselyn Judd Adult Child Health Care Power of Attor nathalie Care Teams Chart Calculator Relationship Specialty Start Date End Date Verónica Benavides MD [address] [place] [address] [place] [address] PCP - General Family Medicine 09/16/14 documented as of this encounter
--- OUTSIDE RECORDS SUMMARY | 2024-04-24 11:10 | External Medical Summary | Summary of Care ---
Author Name Unknown Organization [facility] Address [address] [place] [address] Phone [phone] Care Team Providers Care Verify Rep Name Role Phone Verónica Jiang MD Primary Care Provide r Reason for Visit * Reason Onset Date Comments Order Request 03/01/2024 Lift Bed order Encounter Details Date Type Department Care Team (Late st Contact Info) Description 03/01/2024 Telephone Family [address] [phone] Verónica Jiang MD [address] [place] [address] [place] [address] Order Request (Lift Bed order ) [...] mouth in the morning. 1 Active Nystatin 619694 UNIT/GM External Powder (Nystop)Indications :Lydia rash of [...] XL)Indications:Non- ischemic cardiomyopathy (HCC),Coronary artery disease involving [place] coronary artery of [place] heart without angina pectoris,HTN, goal below [...] long-term current use of insulin ([facility]),Type 2 diabetes mellitus with hemoglobin A1c goal of less than 8.0% ([facility]) TEST UP TO FOUR TIMES [...] Tablet 3 3 Active OneTouch Delica Plus [id number] s:Type 2 diabetes mellitus with hemoglobin A1c goal of less than 8.0% ([facility]) Test up to two times daily or as directed by [facility] pharmacist 200 Each 3 3 Active [...] If no improvement on day 3, contact [facility] for possible home visit 1 [...] 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 Last Assessment & Plan: [facility] Triage Call: Reviewed last C&S [...] Continue synthroid Coronary artery disease invo lving [place] coronary artery of [place] heart without angina pectoris 07/03/2012 Overview: [...] mRNA, LNP-s, No Pre serve, 2-Dose Series (EventRadar) 08/29/2021,10/23/2020,10/02/2020 COVID-19, MRNA-LNP, 23-24, P F, 30 MCG/0.3 mL, 12 YRS AND ABOVE, IM (Values of n-ComirnatStratus5) 08/04/2023 Covid-19, Mrna, Lnp-s, Pf, B ivalent, 30 Mcg, IM, 12 yrs and above (EventRadar) 08/02/2022 Influenza, Whole Virus 08/07/2000 Pneumococcal Conjugate [...] of signature, on letter head. Fax number: [phone] Attention to Name/Company: n/a Any additional information?: [...] dx requires the lift bed. Fax number: [phone] Attention to Name/Company[facility] Any additional information?: Mimi states that the [...] pended,if agreeble. Then [facility] Pt has an appt with you in March If it comes back and we have to submit it thru [facility] for [facility] GOLD, pt will need to wait until her appt, so we have clinic notes to send * Telephone Encounter - Nirmala Montero OSA - 03/01/2024 4:48 PM EDT Mimi from [facility] states patient is asking for [...] EDT Laboratory Lab Mobile Phlebotomy [facility] [address] [place] [address] Mvmg, Gml Mobile Home Draw [address] [facility] [place] [address] 04/09/2024 2:30 PM EDT Home Visit [facility] [address] [place] [address] Destiny Schultz RN 132 [facility] [place] [address] 10/01/2024 1:00 PM EST Telemedicine Family Medicine [address] [phone] Kusum Jones [address] [place] [address] 10/13/2024 11:30 AM EST Telemedicine Urology, [facility] [address] [place] [address] Chandler Pena MD [address] [place] [address] 11/24/2024 1:40 PM EDT Office Visit Dermatology [address] [place] [address] Sheryl Pena PA-C [address] [place] [address] [place] [address] 04/18/2025 1:20 PM EDT Telemedicine Family Medicine [address] [place] [phone] Verónica Jiang MD [address] [place] [address] [place] [address] Health Maintenance Due Date Last Done Comments [...] Additional history exists CKD PHOS USE SMARTSET 79587 02/08/202401/23, 08/07/2021, 11/09/2019, Additional history exists TSH 03/25/2024 03/25/2023, 07/0 10/2022, 10/28/2022, Additional history exists Influenza Vaccine (FLU shot) (#1) 2024 06/20/2022, 06/20/2022, 06/29/2021, Additional history exists CKD HGB USE SMARTSET 17670 05/26/202405/26, 05/26/2023, 04/07/2023, Additional history exists Pneumococcal [...] Documents on File Type Date Recorded Patient Priming Powder Premix Blender Expl anation Advance Directives and Living Will 08/10/2021 ADVANCE DIRECTIVE / LIVING WILL LIVING WILL Healthcare Agents on File Name Relationship Healthcare Agent Relationshi p Communication Josselyn Judd Adult Child Health Care Power of Attor nathalie Care Teams Verify Rep Relationship Specialty Start Date End Date Verónica Jiang MD [address] [place] [address] [place] [address] PCP - General Family Medicine 09/16/14 documented as of this encounter
--- OUTSIDE RECORDS SUMMARY | 2024-04-24 11:10 | External Medical Summary | Summary of Care ---
Author Name Unknown Organization [facility] Address [address] [place] [address] Phone [phone] Care Team Providers Care Supply Manager Name Role Phone Verónica Benavides MD Primary Care Provide r Reason for Visit * Reason Onset Date Comments Order Request 03/01/2024 Lift Bed order Encounter Details Date Type Department Care Team (Late st Contact Info) Description 03/01/2024 Telephone Family [address] [phone] Verónica Benavides MD [address] [place] [address] [place] [address] Order Request (Lift Bed order ) [...] mouth in the morning. 1 Active Nystatin 476295 UNIT/GM External Powder (Nystop)Indications :Lydia rash of [...] XL)Indications:Non- ischemic cardiomyopathy (HCC),Coronary artery disease involving [place] coronary artery of [place] heart without angina pectoris,HTN, goal below 140/90 [...] of insulin ([facility]),Type 2 diabetes mellitus with hemoglobin A1c goal of less than 8.0% ([facility]) TEST UP TO FOUR TIMES DAILY [...] Tablet 3 3 Active OneTouch Delica Plus [id number] s:Type 2 diabetes mellitus with hemoglobin A1c goal of less than 8.0% ([facility]) Test up to two times daily or as directed by [facility] pharmacist 200 Each 3 3 [...] Continue synthroid Coronary artery disease invo lving [place] coronary artery of [place] heart without angina pectoris 07/03/2012 Overview: 60% [...] mRNA, LNP-s, No Pre serve, 2-Dose Series (SourceLair) 08/29/2021,10/23/2020,10/02/2020 COVID-19, MRNA-LNP, 23-24, P F, 30 MCG/0.3 mL, 12 YRS AND ABOVE, IM (Daishu.com-ComirnatSitatByoot.com) 08/04/2023 Covid-19, Mrna, Lnp-s, Pf, B ivalent, 30 Mcg, IM, 12 yrs and above ([employer]) 08/02/2022 Influenza, Whole Virus 08/07/2000 Pneumococcal Conjugate [...] encounter Miscellaneous Notes * Telephone Encounter - Vilma Broderick CMA [...] of signature, on letter head. Fax number: [phone] Attention to Name/Company: n/a Any additional information?: [...] dx requires the lift bed. Fax number: [phone] Attention to Name[facility] Any additional information?: Mimi states that [...] pended,if agreeble. Then we will fax to [facility] Pt has an appt with you in March If it comes back and we have to submit it thru [facility] for [facility] GOLD, pt will need to wait until her appt, so we have clinic notes to send * Telephone Encounter - Nirmala Montero OSA - 03/01/2024 4:48 PM EDT Mimi from [facility] states patient is asking for a lift [...] EDT Laboratory Lab Mobile Phlebotomy [facility] [address] [facility] [place] [address] Mvmg, Gml Mobile Home Draw [address] [facility] [place] [address] 04/09/2024 2:30 PM EDT [facility] Visit [facility] [place], [facility] 132 [facility] [place] [address] Destiny Schultz, POPPY 132 [facility] [place] [address] 10/01/2024 1:00 PM EST Telemedicine Family Medicine [address] [place] [phone] Kusum Jones CRNP [address] [place] [address] [place] [address] 10/13/2024 11:30 AM EST Telemedicine Urology, [facility] 132 [facility] [place] [address] Chandler Pena MD 27 [place] [address] 11/24/2024 1:40 PM EDT Office Visit Dermatology [address] [place] [address] Sheryl Pena PA-C [address] [place] [address] [place] [address] 04/18/2025 1:20 PM EDT Telemedicine Family Medicine [address] [place] [phone] Verónica Benavides MD [address] [place] [address] [place] [address] Health Maintenance Due Date Last Done Comments [...] Additional history exists CKD PHOS USE SMARTSET 78430 02/08/202401/23, 08/07/2021, 11/09/2019, Additional history exists TSH 03/25/2024 03/25/2023, 07/0 10/2022, 10/28/2022, Additional history exists Influenza Vaccine (FLU shot) (#1) 2024 06/20/2022, 06/20/2022, 06/29/2021, Additional history exists CKD HGB USE SMARTSET 63699 05/26/202405/26, 05/26/2023, 04/07/2023, Additional history exists Pneumococcal [...] Documents on File Type Date Recorded Patient Make Up Worker Expl anation Advance Directives and Living Will 08/10/2021 ADVANCE DIRECTIVE / LIVING WILL LIVING WILL Healthcare Agents on File Name Relationship Healthcare Agent [facility] Communication Josselyn Judd Adult Child Health Care Power of Attor nathalie Care Teams Supply Manager Relationship Specialty Start Date End Date Verónica Benavides MD [address] [place] [address] [place] [address] PCP - General Family Medicine 09/16/14 documented as of this encounter
--- OUTSIDE RECORDS SUMMARY | 2024-04-24 11:10 | External Medical Summary ---
Author Name Unknown Address Unknown Organization K01:[facility] [address] [place] [address] Laboratory Report Ordering Provider Test Date Status APOLINAR ARMANDO 04/02/2024 09:53:00 Final Observation Date Value Abnormality Reference (Units ) Status Phosphate 04/02/2024 09:53:00 3.1 2.5-4.8 (m g/dL) Final Performing Location [facility] - [address] [place] [facility] [address]
--- OUTSIDE RECORDS SUMMARY | 2024-04-24 11:10 | External Medical Summary ---
Author Name Unknown Address Unknown Organization K01:[facility] [place] [address] [facility] [address] Laboratory Report Ordering Provider Test Date Status APOLINAR ARMANDO 04/02/2024 09:53:00 Final Observation Date Value Abnormality Reference (Units ) Status WBC, Total 04/02/2024 09:53:00 9.07 4.00-10.80 (K/uL) Final RBC 04/02/2024 09:53:00 2.54 3.85-5.15 (M/uL) Final Hemoglobin 04/02/2024 09:53:00 9.8 Below low normal 12.0-15.3 (g/dL) Final HCT 04/02/2024 09:53:00 29.9 Below low normal 36.0-45.2 (%) Final MCV 04/02/2024 09:53:00 117.7 81.5-97.5 (fL) Final MCH 04/02/2024 09:53:00 38.6 27.0-34.0 (pg) Final MCHC 04/02/2024 09:53:00 32.8 32.0-36.0 (g/dL) Final RDW 04/02/2024 09:53:00 13.4 11.5-15.5 (%) Final Platelets 04/02/2024 09:53:00 368 140-400 (K/uL) Final MPV 04/02/2024 09:53:00 10.0 6.6-11.1 (fL) Final Nucleated erythrocytes/100 leukocytes [Ratio] in Blood by Automated count 04/02/2024 09:53:00 0 <=0 (/100 WBCs) Final Performing Location [facility] - [address] [facility] [address]
--- OUTSIDE RECORDS SUMMARY | 2024-04-24 11:10 | External Medical Summary ---
Author Name Unknown Address Unknown Organization K01:[facility] [place] [address] [facility] [address] Laboratory Report Ordering Provider Test Date Status APOLINAR ARMANDO 04/02/2024 09:53:00 Final Observation Date Value Abnormality Reference (Units ) Status HbA1C 04/02/2024 09:53:00 7.3 Above high normal 4. 0-5.6 (%) Final The use of HbA1c to monitor glycemic status is based on normal hemoglobin and HbA composition. This test should not be used in patients with abnormal hemoglobin that affects the half life of the red blood cell or the in vivo glycation rates. Glucose, estimated average 04/02/2024 09:53:00 163 Above high normal <126 (mg/dL) Nelson bonilla Performing Location [facility] [place] [address] [facility] [address]
--- OUTSIDE RECORDS SUMMARY | 2024-04-24 11:11 | External Medical Summary | Summary of Care ---
Author Name Unknown Organization [facility] Address [address] [place] [address] Phone [phone] Care Team Providers Care Facilities Operator Name Role Phone Verónica Benavides MD Primary Care Provide r Reason for Visit * Reason Onset Date Comments [facility]: Maintenance 03/23/2024 Encounter Details Date Type Department Care Team (Late st Contact Info) Description 03/23/2024 12:30 PM EDT Scheduled Telephone [facility], [facility] 132 [facility] [place] [address] Coordinator, [facility] 132 [facility] [place] [address] Allergies Active Allergy Reactions Criticality Noted Date Comments Adhesive Tape Medium 01/30/2022 Ibuprofen Hives 01/13/2012 Aspirin Hives,Rash 09/15/2000 Sulfamethoxazole-Trimeth oprim Nausea/vomiting,Othe r (Please comment) 10/27/2020 Dizziness Ciprofloxacin Hcl 06/16/2019 Hoarse, dizzy,disoriented Morphine 09/21/2021 Blacked out Penicillins Hives,Rash 09/15/2000 Prednisone 12/30/2017 Weakness/memory changes/blurred vision documented as of this encounter (statuses as of 03/23/2024) Medications Medication Sig Dispensed Refills Start Date [...] mouth in the morning. 08/08/2021 Active Nystatin [id number] UNIT/GM External Powder (Nystop)Indications: Lydia rash of [...] Capsule by mouth in the morning. Active Docusate Sodium 50 MG/5ML Oral Liquid [...] XL)Indications:Non-i schemic cardiomyopathy (HCC),Coronary artery disease involving [place] coronary artery of [place] heart without angina pectoris,HTN, goal below [...] Tablet 3 07/08/2023 Active OneTouch Delica Plus [id number] :Type 2 diabetes mellitus with hemoglobin A1c goal of less than 8.0% ([facility]) Test up to two times daily or as directed by [facility] pharmacist 200 Each 3 07/11/2023 Active Estrogens [...] or more. 180 Tablet 3 11/28/2023 Active Additional Information Patient taking differently: 60 mg Oral BID (.AM/PM), (No instructions reported), Reported on 12/19/2023 DIURETIC TITRATION PLAN If no improvement on [...] needed for Nausea. 20 Tablet 12/03/2023 Active Erythromycin 5 MG/GM Ophthalmic Ointment Apply .25 inch ribbon to right lower eyelid 4 times daily for 14 days then daily at bedtime 3.5 g 3 01/07/2024 Active Additional Information Patient not taking.Reported on 03/04/2024 Trulicity 0.75 MG/0.5ML Subcutaneous Solution Pen-injector (Dulaglutide) [...] this for 14 days. 28 Capsule 03/20/2024 4 Active Fosfomycin Tromethamine 3 GM Oral Packet (Monurol) Take 3 g by mouth every 3 days. 3 Packet 03/22/2024 Active Fluorouracil 5 % External Cream (Efudex) Apply to site on right cheek twice daily x 6 weeks 40 g 03/22/2024 Active documented as of this encounter (statuses as of 03/23/2024) Active Problems Problem Noted Date Diagnosed Date [...] Continue synthroid Coronary artery disease invo lving [place] coronary artery of [place] heart without angina pectoris 07/03/2012 Overview: [...] as of this encounter (statuses as of 03/23/2024) Resolved Problems Problem Noted Date Diagnosed Date [...] as of this encounter (statuses as of 03/23/2024) Immunizations Name Administration Dates Next Due COVID-19 mRNA, LNP-s, No Pre serve, 2-Dose Series ([employer]) 08/29/2021,10/23/2020,10/02/2020 COVID-19, MRNA-LNP, 23-24, P F, 30 MCG/0.3 mL, 12 YRS AND ABOVE, IM (iWantoo-Comirnat) 08/04/2023 Covid-19, Mrna, Lnp-s, Pf, B ivalent, 30 Mcg, IM, 12 yrs and above ([employer]) 08/02/2022 Pneumococcal Conjugate Vacc, 13 Valent (Prevnar) [...] Telephone Encounter - Tali Patel RN - 03/23/2024 12:43 PM EDT See prev encounter Tali Patel RN, BSN [facility] local city driverCellar Worker documented in this encounter Plan of Treatment Upcoming Encounters Date Type Department Care Team (Late st Contact Info) Description 03/26/2024 10:15 AM EDT Scheduled Telephone [facility], [facility] 132 [facility] [place] [address] Coordinator, [address] [place] [address] 03/30/2024 3:40 PM EDT Telemedicine Family Medicine [address] [place] [phone] Verónica Benavides MD [address] [place] [address] [place] [address] 04/09/2024 2:30 PM EDT [facility], [facility] 132 [facility] [place] [address] Destiny Schultz RN 132 [facility] [place] [address] 04/21/2024 10:30 AM EDT Telemedicine Urology, [facility] 132 [facility] [place] [address] Chandler Pena MD [address] [place] [address] 11/24/2024 1:40 PM EDT Office Visit Dermatology [address] [place] [address] Sheryl Pena PA-C [address] [place] [address] [place] [address] Health Maintenance Due Date Last Done Comments Zoster Vaccines (1 of 2) 1985 DXA Scan 04/02/2020 04/02/2017, 12/24, 11/05/2007 Depression Screening 05/24/2020 05/24/2019 Diabetic Foot Exam 11/08/2020 11/09/2019, 0 09/01/2018, 08/28/2017, Additional history exists HbA1c 08/13/2023 02/11/2023, 10/23, 01/11/2022, Additional history exists DTaP,Tdap,and Td Vaccines (2 - Td or Tdap) 11/16/2023 11/15/2013, 03/29/2008, 03/29/2008 COVID-19 Vaccine (2022- season) 2023 08/04/2023, 08/02/2022, 08/02/2022, Additional history exists Diabetic Eye Exam 12/22/2023 12/21/2022, , 03/10/2021, Additional history exists Albumin/Creatinine Ratio 02/08/2024 023, 01/18/2022, 12/23/2017, Additional history exists CKD PHOS USE SMARTSET 95527 02/08/202401/23, 08/07/2021, 11/09/2019, Additional history exists TSH 03/25/2024 03/25/2023, 07/0 10/2022, 10/28/2022, Additional history exists Influenza Vaccine (FLU shot) (#1) 2024 06/20/2022, 06/20/2022, 06/29/2021, Additional history exists CKD HGB USE SMARTSET 07824 05/26/202405/26, 05/26/2023, 04/07/2023, Additional history exists Pneumococcal [...] Documents on File Type Date Recorded Patient Conservation Coordinator Expl anation Advance Directives and Living Will 08/10/2021 ADVANCE DIRECTIVE / LIVING WILL LIVING WILL Healthcare Agents on File Name Relationship Healthcare Agent [facility] Communication Josselyn Judd Adult Child Health Care Power of Attor nathalie Care Teams Facilities Operator Relationship Specialty Start Date End Date Verónica Benavides MD [address] [place] [address] [place] [address] PCP - General Family Medicine 09/16/14 documented as of this encounter
--- OUTSIDE RECORDS SUMMARY | 2024-04-24 11:11 | External Medical Summary | Summary of Care ---
Author Name Unknown Organization [facility] Address [address] [place] [address] Phone [phone] Care Team Providers Care Mathematician Research Name Role Phone Verónica Benavides MD Primary Care Provide r Reason for Visit * Reason Onset Date Comments Medication Management 03/22/2024 Encounter Details Date Type Department Care Team ([facility] st Contact Info) Description 03/22/2024 Telephone [facility], [facility] [address] [place] [address] [facility], Nurse [facility] [address] [place] [id number] Medication Management Allergies Active Allergy Reactions Criticality Noted Date [...] mouth in the morning. 08/08/2021 Active Nystatin [id number] UNIT/GM External Powder (Nystop)Indications: Lydia rash of [...] XL)Indications:Non-i schemic cardiomyopathy (HCC),Coronary artery disease involving kotlik coronary artery of kotlik heart without angina pectoris,HTN, goal below 140/90 [...] Tablet 3 07/08/2023 Active OneTouch Delica Plus [id number] :Type 2 diabetes mellitus with hemoglobin A1c goal of less than 8.0% ([facility]) Test up to two times daily or as directed by [facility] pharmacist 200 Each 3 07/11/2023 Active Estrogens [...] If no improvement on day 3, contact [facility] for possible home visit 1 [...] every 3 days. 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 Last Assessment & Plan: [facility] Triage Call: Reviewed last C&S [...] Continue synthroid Coronary artery disease invo lving kotlik coronary artery of kotlik heart without angina pectoris 07/03/2012 Overview: 60% [...] mRNA, LNP-s, No Pre serve, 2-Dose Series ([employer]) 08/29/2021,10/23/2020,10/02/2020 COVID-19, MRNA-LNP, 23-24, P F, 30 MCG/0.3 mL, 12 YRS AND ABOVE, IM ([employer]) 08/04/2023 Covid-19, Mrna, Lnp-s, Pf, B ivalent, 30 Mcg, IM, 12 yrs and above ([employer]) 08/02/2022 Influenza, Whole Virus 08/07/2000 Pneumococcal Conjugate [...] Telephone Encounter - Nigel Cosme MD - 03/23/2024 12:38 PM EDT Noted. Appreciate the efforts greatly E * Telephone Encounter - Jennifer Damon LPN - 03/23/2024 12:24 PM EDT Prior auth for fosfomycin approved. Tali made aware, she is calling pharmacy. Pt's daughter, Josselyn made aware and RX is at [facility]. Jennifer Damon LPN [facility] 03/23/2024 * Telephone Encounter - Jennifer Damon LPN - 03/23/2024 9:16 AM EDT Prior auth denied. Specific Rationale :Do not see medical record documentation of therapeutic failure on, intolerance to, contraindication to, or bacterial resistance to nitrofurantoin AND sulfamethoxazole-trimethoprim. Formulary Alternatives :sulfamethoxazole-trimethoprim, nitrofurantoin Sent appeal documentation as urgent [facility] 03/23/2024 * Telephone Encounter - Jennifer Damon LPN - 03/23/2024 9:08 AM EDT Fosfomycin Prior Auth Criteria -Patient is exhibiting the following symptoms of uncomplicated UTI (Frequency, burning, odor): burning, frequency, cloudy urine. -Fosfomycin susceptibilities do not appear on urine culture report in Epic system. 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 Urgent prior auth placed. EOC ID [id number] Will follow. [facility] 03/22/2024 documented in this encounter Plan of Treatment Upcoming Encounters Date Type Department Care Team (Late st Contact Info) Description 03/26/2024 10:15 AM EDT Scheduled Telephone [facility], [facility] [address] [place] [address] Coordinator, [facility] [address] [facility] [place] [address] 03/30/2024 3:40 PM EDT Telemedicine Family Medicine [address] [place] [phone] Verónica Benavides MD [address] [place] [address] [place] [address] 04/09/2024 2:30 PM EDT Home Visit [facility], [facility] [address] [facility] [place] [address] Destiny Schultz RN [address] [facility] [place] [address] 04/21/2024 10:30 AM EDT Telemedicine Urology, [facility] [address] [place] [address] Chandler Pena MD [address] [place] [address] [place] [address] 11/24/2024 1:40 PM EDT Office Visit Dermatology [address] [place] [address] Sheryl Pena PA-C [address] [place] [address] [place] [address] Health Maintenance Due Date Last Done Comments [...] Additional history exists CKD PHOS USE SMARTSET 84851 02/08/202401/23, 08/07/2021, 11/09/2019, Additional history exists TSH 03/25/2024 03/25/2023, 07/0 10/2022, 10/28/2022, Additional history exists Influenza Vaccine (FLU shot) (#1) 2024 06/20/2022, 06/20/2022, 06/29/2021, Additional history exists CKD HGB USE SMARTSET 43163 05/26/202405/26, 05/26/2023, 04/07/2023, Additional history exists Pneumococcal [...] Documents on File Type Date Recorded Patient Rn Imaging Expl anation Advance Directives and Living Will 08/10/2021 ADVANCE DIRECTIVE / LIVING WILL LIVING WILL Healthcare Agents on File Name Relationship Healthcare Agent Relationshi p Communication Josselyn Judd Adult Child Health Care Power of Attor nathalie Care Teams Mathematician Research Relationship Specialty Start Date End Date Verónica Benavides MD [address] [place] [address] [place] [address] PCP - General Family Medicine 09/16/14 documented as of this encounter
--- OUTSIDE RECORDS SUMMARY | 2024-04-24 11:11 | External Medical Summary | Summary of Care ---
Author Name Unknown Organization [facility] Address [address] [place] [address] Phone [phone] Care Team Providers Care Chief [place] Division Name Role Phone Verónica Benavides MD Primary Care Provide r Reason for Visit * Reason Comments Follow Up Encounter Details Date Type Department Care Team (Latest Contact Info) Description 03/30/2024 3:40 PM EDT Telemedicine Family Medicine [address] [id number] Verónica Benavides MD [address] [place] [address] [place] [id number] Type 2 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 disease, without long-term current use of insulin ([facility]; Heart failure, systolic, due to idiopathic cardiomyopathy ([facility]); Lymphedema of both lower extremities; Morbid obesity with BMI of 45.0-49.9, adult ([facility]); History of recurrent UTI (urinary tract infection); Coronary artery disease involving hoh coronary artery of hoh heart without angina pectoris; Hypothyroidism, unspecified type; Dyslipidemia, goal LDL below 100; Impaired mobility and ADLs; ESBL E. 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; Benign paroxysmal vertigo of both ears; Nonrheumatic aortic valve stenosis Allergies Active Allergy Reactions Criticality Noted Date Comments Adhesive Tape Medium 01/30/2022 Ibuprofen Hives 01/13/2012 Aspirin Hives,Rash 09/15/2000 Sulfamethoxazole-Trimeth oprim Nausea/vomiting,Othe r (Please comment) 10/27/2020 Dizziness Ciprofloxacin Hcl 06/16/2019 Hoarse, dizzy,disoriented Morphine 09/21/2021 Blacked out Penicillins Hives,Rash 09/15/2000 Prednisone 12/30/2017 Weakness/memory changes/blurred vision documented as of this encounter (statuses as of 03/30/2024) Medications Medication Sig Dispensed Refills Start Date [...] mouth in the morning. 1 Active Nystatin 735487 UNIT/GM External Powder (Nystop)Indications :Lydia rash of [...] XL)Indications:Non- ischemic cardiomyopathy (HCC),Coronary artery disease involving hoh coronary [...] Tablet 3 3 Active OneTouch Delica Plus [id number] s:Type 2 diabetes mellitus with hemoglobin A1c goal of less than 8.0% ([facility]) Test up to two times daily or as directed by [facility] pharmacist 200 Each 3 3 Active [...] If no improvement on day 3, contact [facility] for possible home visit 1 Each [...] pain with urination 6 Tablet 4 Active Cephalexin 500 MG Oral Capsule Take 1 Capsule by mouth in the morning and 1 Capsule before bedtime. Do all this for 14 days. 28 Capsule 4 04/03/20 24 Active Fosfomycin Tromethamine 3 GM Oral [...] at bedtime. 90 Capsule 1 4 Active Docusate Sodium 50 MG/5ML Oral [...] 3.5 g 3 4 03/30/20 24 Discontinued documented as of this encounter (statuses as of 03/30/2024) Active Problems Problem Noted Date Diagnosed Date [...] 06/29/2021 Last Assessment & Plan: [facility] Triage Call: Reviewed last C&S [...] as of this encounter (statuses as of 03/30/2024) Resolved Problems Problem Noted Date Diagnosed Date [...] as of this encounter (statuses as of 03/30/2024) Immunizations Name Administration Dates Next Due COVID-19 mRNA, LNP-s, No Pre serve, 2-Dose Series ([employer]) 08/29/2021,10/23/2020,10/02/2020 COVID-19, MRNA-LNP, 23-24, P F, 30 MCG/0.3 mL, 12 YRS AND ABOVE, IM ([employer]) 08/04/2023 Covid-19, Mrna, Lnp-s, Pf, B ivalent, 30 Mcg, IM, 12 yrs and above ([employer]) 08/02/2022 Pneumococcal Conjugate Vacc, 13 Valent [...] as of this encounter Progress Notes * Verónica Benavides MD - 03/30/2024 3:42 PM EDT Subjective: Regla Castano is a 88 year old female. Chief Complaint Patient presents with Follow Up HPI: Brief Clinical History Ms. Castano is a 88 year old female last seen in [facility] on 03/27/2024 by Nurse [facility] She has a h/o the following chronic conditions indicated on the problem list: Chronic Conditions First degree atrioventricular block Heart failure, systolic, due to idiopathic cardiomyopathy (HCC) Type 2 diabetes mellitus with hemoglobin A1c goal of less than 8.0% ([facility]) Patient location: HOME. I was in a hospital or clinic location. After connecting through [employer]pp[employer],patient was verified with two unique identifiers. 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 Methods to assure confidentiality were taken. Patient acknowledged consent and understanding of pr ivacy and security of the Telemedicine visit. The patient agreed to participate. Seen with [facility]. Following with urology for recurrent UTI. Is on daily suppression with Macrobid now at bedtime. Shesometimes takes a twice a day dose briefly for a UTI depending on sensitivity. She is currently on cephalexin for a UTI and took 3 days of fosfomycin last week. She is feeling better. Was told by urology to try and be more mobile to help cut down on infections. She is also on Premarin cream. Has been checking blood sugars every day. They were good until the last 3-4 day. They have been in the 180s-190s for the last few days. They had been in the 120s-130s prior to going on the antibiotics for this recent UTI. Is on Trulicity at 0.75 mg weekly. No hypoglycemia. Had a near-fall while going to the bathroom last week. She ambulates with a walker but has to back herself into the bathroom. Her caregivers usually follow her with a wheelchair in case she needs to sit down suddenly. Daughter was able to lower her to the commode so that she did not fall. Patient states that her knees gave out under her. Daughter states they have made an exercise chart to encourage and remind her to be more active. Urology suggested she get up and walk around some every 2 hours to get more exercise. Has caregivers that assist at home. Has a hard time getting her legs into bed because they are weakand very heavy. She cannot lift them into bed herself. She has had her caregivers injure their backs and shoulders getting her into bed. Daughter found a bed that will lift her legs into bed so that she can get into bed more easily and without risking injury to family or caregivers that are assisting her into bed. She is currently working with insurance and a medical [employer] to get the bed. Has a lymphedema pump at home for her lymphedema. The machine is working well but the garments are old and worn out and needs an order for more garments for the machine. Is to have a paper sent for the order. Is enrolled with [employer]. CBC Results: Results for orders placed or performed in visit on 05/26/23 CBC Result Value Ref Range WBC 7.42 4.00 - 10.80 K/uL RBC 3.20 3.85 - 5.15 M/uL HGB 12.0 12.0 - 15.3 g/dL HCT 38.0 36.0 - 45.2 % MCV 118.8 81.5 - 97.5 fL MCH 37.5 27.0 - 34.0 pg MCHC 31.6 32.0 - 36.0 g/dL RDW 13.5 11.5 - 15.5 % PLT 348 140 - 400 K/uL MPV 10.2 6.6 - 11.1 fL nRBCs 0 <=0 /100 WBCs Basic Panel Results: Results for orders placed or performed in visit on 12/24/23 BASIC METABOLIC PANEL Result Value Ref Range BUN 20 6 - 20 mg/dL Creatinine 0.9 0.5 - 1.0 mg/dL Estimated Glomerular Filtration Rate 65 >=60 mL/min Sodium 139 135 - 146 mmol/L Potassium 4.0 3.5 - 5.1 mmol/L Chloride 101 98 - 107 mmol/L CO2 28 22 - 32 mmol/L Anion Gap 10 7 - 15 mmol/L Glucose 118 70 - 120 mg/dL Calcium 8.8 8.4 - 10.2 mg/dL Hemoglobin AIC Results: Lab Results Component Value Date/Time HEMOGLOBIN A1C - [facility] 9.6 (H) 02/11/2023 01:40 PM HEMOGLOBIN A1C - [facility] 7.6 (H) 11/01/2022 06:18 AM HEMOGLOBIN A1C - [facility] 6.9 (H) 01/11/2022 08:25 AM HEMOGLOBIN A1C - [facility] 6.4 (H) 06/06/2020 11:14 AM HEMOGLOBIN A1C - [facility] 6.5 (H) 11/09/2019 03:52 PM HEMOGLOBIN A1C - [facility] 6.2 (H) 07/09/2019 03:08 PM Lipid Panel Results: Results for orders placed or performed in visit on 11/28/20 LIPID PANEL WITH DIRECT LDL IF TG IS HIGH Result Value Ref Range Triglycerides 103 <=174 mg/dL Cholesterol 165 <200 mg/dL HDL Cholesterol 49 (L) >49 mg/dL Non-HDL Cholesterol 116 <=159 mg/dL LDL Cholesterol 95 <=129 mg/dL Results for orders placed or performed in visit on 03/18/24 URINALYSIS, REFLEX TO CULTURE (CUP ONLY) Result Value Ref Range Urinalysis, Reflex to Culture Specimen Specimen collected and received URINALYSIS, REFLEX TO CULTURE Result Value Ref Range Color, Urine Yellow Colorless, Light Yellow, Yellow, Dark Yellow Clarity, Urine Cloudy (A) Clear Glucose, Urine Negative Negative mg/dL Bilirubin, Urine Negative Negative Ketone, Urine Negative Negative mg/dL Specific Chrisney, Urine 1.008 1.003 - 1.030 Blood, Urine Moderate (A) Negative pH, Urine 7.5 5.0 - 7.5 Units Protein, Urine 30 (A) Negative mg/dL Urobilinogen, Urine Normal Normal mg/dL Nitrite, Urine Negative Negative Esterase, Urine Large (A) Negative RBC, Urine 10-19 (A) 0 - 2 /HPF WBC, Urine 50+ (A) 0 - 2 /HPF Bacteria, Urine >200 (A) 0 - 25 /HPF Culture, Urine CULTURE, URINE, QUANTITATIVE Specimen: Urine, Clean Catch Result Value Ref Range Culture Growth 10,000 to 100,000 colonies/mL Proteus mirabilis (A) Culture Growth 10,000 to 100,000 colonies/mL Enterococcus species (A) Susceptibility Enterococcus species - [employer]BR[employer]ILUTIONS Ampicillin Resistant Nitrofurantoin Susceptible Tetracycline Resistant Vancomycin Susceptible Proteus mirabilis - MI[employer]ILUT[employer] Ampicillin Susceptible Cefazolin Susceptible Cefepime Susceptible Ceftriaxone Susceptible Ciprofloxacin* Susceptible * Due to serious side effects, the FDA has advised against using Ciprofloxacin to treat uncomplicated UTIs and respiratory tract infections unless there are no alternative treatment options. Gentamicin Susceptible Piperacillin Tazobactam Susceptible Trimeth/Sulfamethoxazole Susceptible *Note: Due to a large number of results and/or encounters for the requested time period, some results have not been displayed. A complete set of results can be found in Results Review. PHM: Patient Active Problem List Diagnosis GENERAL OSTEOARTHROSIS Hypothyroidism DYSLIPIDEMIA, GOAL LDL BELOW 100 Aspirin allergy LBBB (left bundle branch block) First degree atrioventricular block Coronary artery disease involving hoh coronary artery of hoh heart without angina pectoris ACEI/ARB contraindicated Type 2 diabetes mellitus with hemoglobin A1c goal of less than 8.0% ([facility]) Non-ischemic cardiomyopathy ([facility]) Heart failure, systolic, due to idiopathic cardiomyopathy ([facility]) Aortic valve stenosis 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, without long-term current use of insulin ([facility]) Lymphedema of both lower extremities Benign paroxysmal vertigo of both ears Gastroesophageal reflux disease without esophagitis Type 2 diabetes mellitus with mild nonproliferative diabetic retinopathy without macular edema, right eye ([facility]) 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 History of recurrent UTI (urinary tract infection) Trochanteric bursitis of right hip Ventral hernia without obstruction or gangrene Impaired mobility and ADLs Bilateral impacted cerumen Transient confusion Postmenopausal atrophic vaginitis Recurrent UTI (urinary tract infection) Current Outpatient Medications Medication Sig Dispense Refill Torsemide 20 MG Oral Tablet (Demadex) 60 mg in the morning and 60 mg in the afternoon Nitrofurantoin Monohyd Macro 100 MG Oral Capsule (Macrobid) Take 1 Capsule by mouth every night at bedtime. 90 Capsule 1 STOOL SOFTENER 100 MG PO TABS 3-4 tabs daily as needed GLUCOSAMINE CHONDR 500 COMPLEX PO CAPS Take by mouth 2 times a day. MAGNESIUM OXIDE 400 MG PO TABS one pill each day Acetaminophen (APAP) 325 MG Tablet Take 1 Tablet by mouth every 6 hours as needed. (Patient not taking: Reported on 10/22/2023) Vee24 w/Device Kit Use up to 4 times a day E11.9 1 Kit 0 Cyanocobalamin 1000 MCG Oral Tablet (Cyanocobalamin) Take 1 Tablet by mouth in the morning. Nystatin 677607 UNIT/GM External Powder (Nystop) Apply topically to affected area 2 times a day . (Patient not taking: Reported on 10/22/2023) 60 g 11 Probiotic Acidophilus [employer] Oral Capsule Take 1 Capsule by mouth every evening. Just with antibiotics D-Mannose 500 MG Oral Capsule Take by [...] by mouth every evening. 90 Tablet 11 Benzonatate 100 MG Oral Capsule Take 1 Capsule by mouth 3 times a day as needed for Cough. 30 Capsule 1 OneTouch Verio In Vitro Strip (Glucose Blood) TEST UP TO FOUR TIMES DAILY 400 Strip 1 Colchicine 0.6 MG Oral Tablet Take one twice for gout attack 8 Tablet 0 Promethazine-DM 6.25-15 MG/5ML Oral Syrup Take 5 mL by mouth 4 times a day as needed for Cough. 120mL 1 Myrbetriq 25 MG Oral Tablet Extended Release 24 Hour (Mirabegron ER) Take 1 Tablet by mouth in the morning. 90 Tablet 3 OneTouch Delica Plus [id number] Test up to two times daily or as directed by [facility] pharmacist 200 Each 3 Estrogens Conjugated 0.625 MG/GM Vaginal Cream (Premarin) Administer 0.5 g into the vagina every night at bedtime. Pea-sized amount around vulvar area nightly 30 g 5 Levothyroxine Sodium 88 MCG Oral Tablet (Levoxyl) TAKE ONE TABLET BY MOUTH EVERY MORNING 30 MINS PRIOR TO FIRST MEAL OF THE DAY OR OTHER MEDS 90 Tablet 3 Clotrimazole 1 % External Cream (Lotrimin) APPLY TO THE AFFECTED AREA(S) TWICE DAILY FOR FOURTEEN DAYS (Patient not taking: Reported on 10/22/2023) 60 g 2 Potassium Chloride Laura ER 20 MEQ Oral Tablet Extended Release Take 1 Tablet by mouth 2 times a daywith morning and evening meals. 180 Tablet 1 DIURETIC TITRATION PLAN If no improvement on day 3, contact [facility] for possible home visit 1 Each 0 Meclizine HCl 25 MG Oral Tablet (Antivert) Take 1 tablet by mouth 3 times a day as needed for dizziness 30 Tablet 5 Ondansetron HCl 4 MG Oral Tablet Take 1 Tablet by mouth every 6 hours as needed for Nausea. 20 Tablet 0 Trulicity 0.75 MG/0.5ML Subcutaneous Solution Pen-injector (Dulaglutide) Inject 0.75 mg under the skin once a week. 2 mL 3 Omeprazole 20 MG Oral Capsule Delayed Release (PriLOSEC) Take 1 Capsule by mouth in the morning. One hour before the first meal of the day.. 90 Capsule 1 metOLazone 2.5 MG Oral Tablet (Zaroxolyn) Take one tablet only when directed by clinician. 5 Tablet0 Spironolactone 25 MG Oral Tablet (Aldactone) TAKE 1/2 TABLET BY MOUTH EVERY MORNING 45 Tablet 3 Phenazopyridine HCl 200 MG Oral Tablet (Pyridium) Take 1 Tablet by mouth 3 times a day as needed for Pain, Severe. After meals for pain with urination 6 Tablet 0 Cephalexin 500 MG Oral Capsule Take 1 Capsule by mouth in the morning and 1 Capsule before bedtime.Do all this for 14 days. 28 Capsule 0 Fosfomycin Tromethamine 3 GM Oral Packet (Monurol) Take 3 g by mouth every 3 days. 3 Packet 0 Fluorouracil 5 % External Cream (Efudex) Apply to site on right cheek twice daily x 6 weeks 40 g 0 No current facility-administered medications for this visit. Past Medical History: Diagnosis Date ACEI/ARB contraindicated Calculus of kidney Diverticulitis of colon DM type 2, goal A1c below 7 Diabetes Type II, Controlled Esophageal reflux Impaired glucose tolerance Obesity, BMI not known Past Surgical History: Procedure Laterality Date ANESTH, TOTAL KNEE REPLACEMENT 08/25/1994 Bilateral FRAGMENT KIDNEY STONE BY SHOCK WAVE 11/08/2005 ESWL (Extracorporeal Shock Wave Lithotripsy) FRAGMENT KIDNEY STONE BY SHOCK WAVE 07/06/2008 ESWL (Extracorporeal Shock Wave Lithotripsy) FRAGMENT KIDNEY STONE BY SHOCK WAVE 08/12/2008 INFORMATION 08/25/1999 excision of seborrheic keratosis on L breast INFORMATION plate in left arm LAPAROSCOPY; CHOLECYSTECTOMY 12/24/1995 SUTURE REPAIR OF ENTROPION Right 01/07/2024 Dr. Mcclelland-Entropion repair RLL TOTAL HYSTERECTOMY age 48 fibroids Social History Socioeconomic History Marital status: Spouse name: Not on file Number of children: 3 Years of education: Not on file Highest education level: Not on file Occupational History Not on file Tobacco Use Smoking status: Never Smokeless tobacco: Never Vaping Use Vaping status: Never Used Substance and Sexual Activity Alcohol use: No Drug use: No Sexual activity: Never Other Topics Concern Service Not Asked Blood Transfusions Not Asked Caffeine Concern Not Asked Occupational Exposure Not Asked Hobby Hazards Not Asked Sleep Concern Not Asked Stress Concern Not Asked Weight Concern Not Asked Special Diet Not Asked Back Care Not Asked Exercise Yes Comment: CV2x/wk Bike Helmet Not Asked Seat Belt Not Asked Self-Exams Yes Comment: breast Social History Narrative Not on file Social Determinants of Health Financial Resource Strain: Not on file Food Insecurity: Not on file Transportation Needs: Not on file Social Connections: Unknown (03/30/2024) Social Connections How often do you feel lonely or isolated from those around you? (Adult - for ages 18 years and over): Not on file Housing Stability: Not on file Review of patient's allergies indicates: Allergen Reactions Adhesive Tape Advil [Ibuprofen] Hives Aspirin Hives and Rash Bactrim [Sulfamethoxazole-Trimethoprim] Nausea/vomiting and Other (Please comment) Dizziness Ciprofloxacin Hcl Hoarse, dizzy,disoriented Morphine Blacked out Penicillins Hives and Rash Prednisone Weakness/memory changes/blurred vision Objective: There were no vitals taken for this visit. Physical Exam: General: alert, no distress, well nourished, well developed, and obese. Seated in a recliner chair Neuro Exam: alert & oriented x 3 with fluent speech Extensive ROS Constitutional (f/c/wt/vision/hearing): Negative Resp (cough/sob/cummings): Negative CV (cp/palp/fluttering/diaphoresis/cummings/pnd):+severe with CUMMINGS GI (n/v/d/hrtburn): GERD controlled with PPI Endo (hair/cold or heat intol/ 3 p's): +type 2 diabetes mellitus Neuro (shaking/weak/fatigu/parasthesi/): +generalized weakness and debility Skin (rash/easy bruis/xerosis): following with dermatology for skin lesion of cheek Psy (si/hi/halluc/): Negative (nocturia/hesit/drib/sexual review): see above hpi Lymph (swollen glands/b sx's/: see above hpi ASSESSMENT: Type 2 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 disease, without long-term current use of insulin ([facility]) (Primary)--last A1C above goal but sugars much improved on Trulicity per patient and daughter. Check follow-up labs. Sugars a little bit higher with current UTI. Increase Trulicity to 1.5 mg weekly if remain high or A1C above goal. Have mobile lab draw labs. Last GFR was normal. - HEMOGLOBIN A1C; Future; Expected date: 03/30/2024 - BASIC METABOLIC PANEL; Future; Expected date: 03/30/2024 - PHOSPHORUS; Future; Expected date: 03/30/2024 - CBC WITH WBC DIFFERENTIAL; Future; Expected date: 03/30/2024 - ALBUMIN / CREATININE RATIO, URINE; Future; Expected date: 03/30/2024 Heart failure, systolic, due to idiopathic cardiomyopathy ([facility])--continue torsemide 60 mg twice daily. Recently had to add metolazone for weight gain and weight is down 8 pounds. Lymphedema of both lower extremities--needs new garments for her lymphedema pump. Morbid obesity with BMI of 45.0-49.9, adult ([facility])--continue Trulicity and encourage increased physical activity. History of recurrent UTI (urinary tract infection)--following with urology. Is on suppression with Macrobid. Currently on cephalexin and took course of fosfomycin last week for ESBL. Also on premarincream. Encouraged by urology to be more active. Coronary artery disease involving hoh coronary artery of hoh heart without angina pectoris--stable. Continue metoprolol succinate 25 mg daily. Hypothyroidism, unspecified type--continue levothyroxine 88 mg daily. Due for labs. - TSH WITH FREE T4 IF INDICATED; Future; Expected date: 03/30/2024 Dyslipidemia, goal LDL below 100--has been at goal without medication. Impaired mobility and ADLs--would benefit from bed that lifts legs into bed. Has very heavy, lymphedematous legs and unable to get in bed on her own and her caregivers are getting injured lifting herlegs into bed. ESBL E. 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--following with urology. Took fosfomycin last week. Benign paroxysmal vertigo of both ears--continue meclizine as needed. Nonrheumatic aortic valve stenosis--stable. Follows with cardiology. Follow Up: Return in about 6 months (around 09/30/2024) for Clinic Visit. | For: Clinic Visit PLAN: Continue present medication(s): Schedule labs: A1C, BMP, TSH, CBC w/diff, phosphorus, lipid panel, and microalbumin to be drawn by mobile lab. Patient education: Discussed diabetes control. Would increase Trulicity if sugars remains high or A1C is above goal. Follow up: in 6 month(s). Verónica Benavides MD documented in this encounter Plan of Treatment Upcoming Encounters Date Type Department Care Team (Late st Contact Info) Description 04/09/2024 2:30 PM EDT Home Visit [facility] [address] [place] [address] Destiny Schultz RN [address] [place] [address] 10/13/2024 11:30 AM EST Telemedicine Urology, [facility] [address] [place] [address] Chandler Pena MD [address] [place] [id number] 11/24/2024 1:40 PM EDT Office Visit Dermatology [address] [place] [address] Sheryl Pena PA-C [address] [place] [address] [place] [id number] Scheduled Orders Name Type Priority Associated Diagnoses Orde r Schedule HEMOGLOBIN A1C Lab Routine Type 2 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 disease, without long-term current use of insulin (HCC) Expected: 03/30/2024 (Approximate), Expires: 03/30/2025 BASIC METABOLIC PANEL Lab Routine Type 2 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 disease, without long-term current use of insulin (HCC) Expected: 03/30/2024 (Approximate), Expires: 03/30/2025 PHOSPHORUS Lab Routine Type 2 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 disease, without long-term current use of insulin (HCC) Expected: 03/30/2024 (Approximate), Expires: 03/30/2025 CBC WITH WBC DIFFERENTIAL Lab Routine Type 2 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 disease, without long-term current use of insulin (HCC) Expected: 03/30/2024 (Approximate), Expires: 03/30/2025 TSH WITH FREE T4 IF INDICATED Lab Routine Hypothyroidism, unspecified type Expected: 03/30/2024 (Approximate), Expires: 03/30/2025 ALBUMIN / CREATININE RATIO, URINE Lab Routine Type 2 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 disease, without long-term current use of insulin (HCC) Expected: 03/30/2024 (Approximate), Expires: 03/30/2025 LIPID PANEL WITH DIRECT LDL IF TG IS HIGH Lab Routine Dyslipidemia, goal LDL below 100 Expected: 03/30/2024, Expires: 03/30/2025 Health Maintenance Due Date Last Done Comments [...] Additional history exists CKD PHOS USE SMARTSET [id number] 02/08/2024 06/1 01/2023, 08/07/2021, 11/09/2019, Additional history exists TSH 03/25/2024 03/25/2023, 07/0 10/2022, 10/28/2022, Additional history exists Influenza Vaccine (FLU shot) (#1) 2024 06/20/2022, 06/20/2022, 06/29/2021, Additional history exists CKD HGB USE SMARTSET 62514 05/26/202405/26, 05/26/2023, 04/07/2023, Additional history exists Pneumococcal [...] Diagnoses Diagnosis Type 2 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 disease, without long-term current use of insulin (HCC)- Primary Heart failure, systolic, due to idiopathic cardiomyopathy (HCC) Unspecified systolic heart failure Lymphedema of both lower extremities Morbid obesity with BMI of 45.0-49.9, adult (HCC) Morbid obesity History of recurrent UTI (urinary tract infection) Personal history of urinary (tract) infection Coronary artery disease involving hoh coronary artery of hoh heart without angina pectoris Hypothyroidism, unspecified type Dyslipidemia, goal LDL below 100 Other and unspecified hyperlipidemia Impaired mobility and ADLs Mechanical problems with limbs ESBL E. 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
--- OUTSIDE RECORDS SUMMARY | 2024-04-24 11:11 | External Medical Summary | Summary of Care ---
Author Name Unknown Organization [facility] Address [address] [place] [address] Phone [phone] Care Team Providers Care Acid Changer Name Role Phone Tr Jiang MD Primary Care Provide r Encounter Details Date Type Department Care Team (Late st Contact Info) Description 03/29/2024 9:45 AM EDT Telemedicine Urology, [facility] [address] [facility] [place] [address] Chandler Pena MD [address] [place] [address] Dysuria*; Postmenopausal atrophic vaginitis; Chronic bacteriuria; Recurrent UTI Allergies Active Allergy Reactions Criticality Noted Date Comments Adhesive Tape Medium 01/30/2022 Ibuprofen Hives 01/13/2012 Aspirin Hives,Rash 09/15/2000 Sulfamethoxazole-Trimeth oprim Nausea/vomiting,Othe r (Please comment) 10/27/2020 Dizziness Ciprofloxacin Hcl 06/16/2019 Hoarse, dizzy,disoriented Morphine 09/21/2021 Blacked out Penicillins Hives,Rash 09/15/2000 Prednisone 12/30/2017 Weakness/memory changes/blurred vision documented as of this encounter (statuses as of 03/29/2024) Medications Medication Sig Dispensed Refills Start Date [...] mouth in the morning. 08/08/2021 Active Nystatin 139631 UNIT/GM External Powder (Nystop)Indications: Lydia rash of [...] XL)Indications:Non-i schemic cardiomyopathy (HCC),Coronary artery disease involving northway coronary artery of northway heart without angina pectoris,HTN, goal below 140/90 [...] Tablet 3 07/08/2023 Active OneTouch Delica Plus [id number] :Type 2 diabetes mellitus with hemoglobin A1c goal of less than 8.0% ([facility]) Test up to two times daily or as directed by [facility] pharmacist 200 Each 3 07/11/2023 Active Estrogens [...] If no improvement on day 3, contact [facility] for possible home visit 1 Each [...] as of this encounter (statuses as of 03/29/2024) Active Problems Problem Noted Date Diagnosed Date [...] 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 Last Assessment & Plan: [facility] Triage Call: Reviewed last C&S - [...] Continue synthroid Coronary artery disease invo lving northway coronary artery of northway heart without angina pectoris 07/03/2012 Overview: 60% [...] as of this encounter (statuses as of 03/29/2024) Resolved Problems Problem Noted Date Diagnosed Date [...] as of this encounter (statuses as of 03/29/2024) Immunizations Name Administration Dates Next Due COVID-19 mRNA, LNP-s, No Pre serve, 2-Dose Series ([employer]) 08/29/2021,10/23/2020,10/02/2020 COVID-19, MRNA-LNP, 23-24, P F, 30 MCG/0.3 mL, 12 YRS AND ABOVE, IM ([employer]) 08/04/2023 Covid-19, Mrna, Lnp-s, Pf, B ivalent, 30 Mcg, IM, 12 yrs and above ([employer]) 08/02/2022 Pneumococcal Conjugate Vacc, 13 Valent (Prevnar) [...] Progress Notes * Chandler Pena MD - 03/29/2024 10:08 AM EDT [id number] PCP: TR JIANG [address] [place] [address] [place] [address] Patient location: HOME. I was in a hospital or clinic location. After connecting through televideo,patient was verified with two unique identifiers. Patient (or authorized legal risk control representative) was then informed that this was a Telemedicine visit and being conducted confidentially over secure lines. Methods to assure confidentiality were taken. Patient acknowledged consent and understanding of pr ivacy and security of the Telemedicine visit. The patient agreed to participate. Regla Castano is a 88 year old female, who presents for 6 month f/u of her history. She notes "except for UTIs" everything is good. Recent course of fosfomycin and Keflex are noted. Persistent positive cultures are noted. Family is present with patient. They note weakness, frequency, dysuria, cloudiness of urine, fluid retention associated with her UTI and positive cultures. Timed voiding was used, but patient has resistance to the practice, returned to baseline. She remains on estrogen creamand Myrbetriq. She notes she avoid constipation via diet. UTI: Presented to Urology Feb 2023. Provided Myrbetriq 25 mg. Using vaginal estrogens. Questionable intolerance of methenamine in the past. Renal US Jan 2023. Cystoscopy February 2023: Sequelae of bladder outlet obstruction. UC&S Aug 2023: Culture Growth >100,000 colonies/mL Klebsiella pneumoniae Abnormal UC&S Feb 2024: Culture Growth 10,000 to 100,000 colonies/mL Proteus mirabilis Abnormal 10,000 to 100,000 colonies/mL Enterococcus species Abnormal Renal US 2021. Current Outpatient Medications Medication Sig Dispense Refill STOOL SOFTENER 100 MG PO TABS 3-4 tabs daily as needed GLUCOSAMINE CHONDR 500 COMPLEX PO CAPS Take by mouth 2 times a day. MAGNESIUM OXIDE 400 MG PO TABS one pill each day Acetaminophen (APAP) 325 MG Tablet Take 1 Tablet by mouth every 6 hours as needed. (Patient not taking: Reported on 10/22/2023) OneTouch Verio w/Device Kit Use up to 4 times a day E11.9 1 Kit 0 Cyanocobalamin 1000 MCG Oral Tablet (Cyanocobalamin) Take 1 Tablet by mouth in the morning. Nystatin 368098 UNIT/GM External Powder (Nystop) Apply topically to [...] taking: Reported on 10/22/2023) 120 mL 3 Bisacodyl 5 MG Oral [...] morning. 90 Tablet 3 OneTouch Delica Plus [id number] Test up to two times daily or as directed by [facility] pharmacist 200 Each 3 Estrogens Conjugated 0.625 [...] morning and evening meals. 180 Tablet 1 Torsemide 20 MG Oral Tablet (Demadex) Take 60 mg by mouth in the morning, 40 mg by mouth in the afternoon. Additional 20 mg in the afternoon ONLY if directed by health care provider for weight gain of 3 lbs or more. (Patient taking differently: Take 3 Tablets by mouth in the morning and 3 Tablets before bedtime.) 180 Tablet 3 DIURETIC TITRATION PLAN If no improvement on day 3, contact [facility] for possible home visit 1 Each 0 Meclizine HCl 25 MG Oral Tablet (Antivert) Take 1 tablet by mouth 3 times a day as needed for dizziness 30 Tablet 5 Ondansetron HCl 4 MG Oral Tablet Take 1 Tablet by mouth every 6 hours as needed for Nausea. 20 Tablet 0 Erythromycin 5 MG/GM Ophthalmic Ointment Apply .25 inch ribbon to right lower eyelid 4 times daily for 14 days then daily at bedtime (Patient not taking: Reported on 03/04/2024) 3.5 g 3 Trulicity 0.75 MG/0.5ML Subcutaneous Solution Pen-injector [...] Substances Vaping/E-Cigarette Devices Family History Problem Relation Name Age of Onset Heart Disorder Mother mi [...] repair RLL TOTAL HYSTERECTOMY age 48 fibroids Past Medical History: Diagnosis Date ACEI/ARB contraindicated Calculus of kidney Diverticulitis of colon DM type 2, goal A1c below 7 Diabetes Type II, Controlled Esophageal reflux Impaired glucose tolerance Obesity, BMI not known Patient Active Problem List Diagnosis GENERAL OSTEOARTHROSIS Hypothyroidism DYSLIPIDEMIA, GOAL LDL BELOW 100 Aspirin allergy LBBB (left bundle branch block) First degree atrioventricular block Coronary artery disease involving northway coronary artery of northway heart without angina pectoris ACEI/ARB contraindicated Type 2 diabetes mellitus with hemoglobin A1c goal of less than 8.0% ([facility]) Non-ischemic cardiomyopathy ([facility]) Heart failure, systolic, due to idiopathic cardiomyopathy ([facility]) Aortic valve stenosis 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, without long-term current use of insulin ([facility]) Lymphedema of both lower extremities Benign paroxysmal vertigo of both ears Gastroesophageal reflux disease without esophagitis Type 2 diabetes mellitus 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 History of recurrent UTI (urinary tract infection) Trochanteric bursitis of right hip Ventral hernia without obstruction or gangrene Impaired mobility and ADLs Bilateral impacted cerumen Transient confusion Postmenopausal atrophic vaginitis Recurrent UTI (urinary tract infection) Constitutional: (+) weakness Eyes: (+) corrective lenses Female : (+) see HPI Musculoskeletal: (+) muscle weakness Neurology: (+) loss of balance Psychiatry: (+) memory loss Physical Exam Constitutional: General: She is not in acute distress. Appearance: She is obese. She is not ill-appearing or toxic-appearing. Comments: Using walker HENT: Head: Normocephalic. Right Ear: External ear normal. Left Ear: External ear normal. Nose: Nose normal. Cardiovascular: Pulses: Normal pulses. Pulmonary: Effort: Pulmonary effort is normal. No respiratory distress. Abdominal: General: Abdomen is protuberant. There is no distension. Skin: Coloration: Skin is not pale. Neurological: Motor: Weakness present. Gait: Gait abnormal. Psychiatric: Comments: Poor historian Impression/Plan: 88 yo female with a history of recurrent positive culture. Contributors to her symptoms are reviewed. Patient seems to be optimized from a medical standpoint.She is strongly encouraged to continue to try to increase activity. Will keep at interval 6 month telehealth visits. Above content is personally reviewed. Patient vocalizes good understanding of the treatment plan. PRN UC&S order refilled. I suspect time voiding and increased activity will also assist with the patient's ongoing symptoms. Chandler Pena MD 10:08 AM 03/29/2024 documented in this encounter Plan of Treatment Upcoming Encounters Date Type Department Care Team (Late st Contact Info) Description 03/30/2024 3:40 PM EDT Telemedicine Family Medicine [address] [place] [phone] Tr Jiang MD [address] [place] [address] [place] [address] 04/09/2024 2:30 PM EDT Home Visit [facility] [address] [facility] [place] [address] Destiny Schultz RN [address] [place] [address] 11/24/2024 1:40 PM EDT Office Visit Dermatology [address] [place] [address] Sheryl Pena PA-C [address] [place] [address] [place] [id number] Scheduled Orders Name Type Priority Associated Diagnoses Orde r Schedule CULTURE, URINE, QUANTITATIVE Lab Routine Dysuria Chronic bacteriuria Recurrent UTI 6 Occurrences starting 03/29/2024 until 03/29/2025 Health Maintenance Due Date Last Done Comments [...] Additional history exists CKD PHOS USE SMARTSET 16730 02/08/202401/23, 08/07/2021, 11/09/2019, Additional history exists TSH 03/25/2024 03/25/2023, 07/0 10/2022, 10/28/2022, Additional history exists Influenza Vaccine (FLU shot) (#1) 2024 06/20/2022, 06/20/2022, 06/29/2021, Additional history exists CKD HGB USE SMARTSET 43468 05/26/202405/26, 05/26/2023, 04/07/2023, Additional history exists Pneumococcal [...] UTI Urinary tract infection, site not specified documented in this encounter Advance Directives Documents on File Type Date Recorded Patient Optical Fabrication Technician Expl anation Advance Directives and Living Will 08/10/2021 ADVANCE DIRECTIVE / LIVING WILL LIVING WILL Healthcare Agents on File Name Relationship Healthcare Agent [facility] Communication Josselyn [facility] Power of Attor nathalie Care Teams Acid Changer Relationship Specialty Start Date End Date Tr Jiang MD [address] [place] [address] [place] [address] PCP - General Family Medicine 09/16/14 documented as of this encounter
--- OUTSIDE RECORDS SUMMARY | 2024-04-24 11:11 | External Medical Summary | Summary of Care ---
Author Name Unknown Organization [facility] Address [address] [place] [address] Phone [phone] Care Team Providers Care Customer Engagement Analyst Name Role Phone Verónica Benavides MD Primary Care Provide r Reason for Visit * Reason Onset Date Comments [facility]: Maintenance 03/26/2024 Encounter Details Date Type Department Care Team (Late st Contact Info) Description 03/26/2024 10:15 AM EDT Scheduled Telephone [facility], [facility] [address] [facility] [place] [address] Coordinator, [facility] [address] [facility] [place] [address] Allergies Active Allergy Reactions Criticality Noted Date Comments Adhesive Tape Medium 01/30/2022 Ibuprofen Hives 01/13/2012 Aspirin Hives,Rash 09/15/2000 Sulfamethoxazole-Trimeth oprim Nausea/vomiting,Othe r (Please comment) 10/27/2020 Dizziness Ciprofloxacin Hcl 06/16/2019 Hoarse, dizzy,disoriented Morphine 09/21/2021 Blacked out Penicillins Hives,Rash 09/15/2000 Prednisone 12/30/2017 Weakness/memory changes/blurred vision documented as of this encounter (statuses as of 03/26/2024) Medications Medication Sig Dispensed Refills Start Date [...] mouth in the morning. 08/08/2021 Active Nystatin 426081 UNIT/GM External Powder (Nystop)Indications: Lydia rash of [...] Tablet 3 07/08/2023 Active OneTouch Delica Plus [id number] :Type 2 diabetes mellitus with hemoglobin A1c goal of less than 8.0% ([facility]) Test up to two times daily or as directed by [facility] pharmacist 200 Each 3 07/11/2023 Active Estrogens [...] If no improvement on day 3, contact [facility] for possible home visit 1 [...] as of this encounter (statuses as of 03/26/2024) Active Problems Problem Noted Date Diagnosed Date [...] 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 Last Assessment & Plan: [facility] Triage Call: Reviewed last C&S [...] as of this encounter (statuses as of 03/26/2024) Resolved Problems Problem Noted Date Diagnosed Date [...] as of this encounter (statuses as of 03/26/2024) Immunizations Name Administration Dates Next Due COVID-19 mRNA, LNP-s, No Pre serve, 2-Dose Series ([employer]) 08/29/2021,10/23/2020,10/02/2020 COVID-19, MRNA-LNP, 23-24, P F, 30 MCG/0.3 mL, 12 YRS AND ABOVE, IM ([employer]) 08/04/2023 Covid-19, Mrna, Lnp-s, Pf, B ivalent, 30 Mcg, IM, 12 yrs and above ([employer]) 08/02/2022 Pneumococcal Conjugate Vacc, 13 Valent (Prevnar) [...] Telephone Encounter - Janiya Cárdenas RN - 03/26/2024 11:41 AM EDT [facility] Telephonic Nurse Follow-Up Call [facility] Subprogram: Primary Care at Home Follow Up Call Type: Routine follow up call / Status Check Acute issue requiring follow-up call: Complicated UTI Objective: 02/20/2024 2:00 PM 02/20/2024 1:59 PM 01/08/2024 4:45 PM 12/19/2023 11:03 AM 11/11/2023 2:14 PM VITALS ACROSS ENCOUNTERS BP 136/68 136/68 104/76 118/62 122/64 Pulse 80 80 72 64 62 Weight 105.1 kg 105.1 kg 108 kg 108 kg BMI 43.8 kg/m2 43.8 kg/m2 44.97 kg/m2 44.97 kg/m2 Remote Patient Monitoring: NONE Oxygen Needs: NO supplemental oxygen needs identified DME Needs: NO DME needs identified Medications: New medication(s) added: fosfomyacin Subjective: Condition Status: Improvement in symptoms but not at baseline Current Concerns: Spoke with dtr Josselyn, states that her mother's urine is much improved. Clear light yellow urine. Pt is afebrile. Denies burning on urination but does have some residual pressure. Josselyn noted pt's weight elevated and her legs puffy. Wt up 5 lbs this week to 238.5lb. last nightgave pt a metolazone and pt urinated q2 hrs last night. Weight today 234.0 lbs. States that the pt is pretty fatigued today due to being up all night urinating. SOB at baseline. Denies Chest pain, abd bloating, lightheadedness and dizziness. Disposition: Weekend call scheduled Future Visits Scheduled: Future Appointments-next 60 days Date/Time Provider Specialty Dept Phone 03/30/2024 3:40 PM Verónica Benavides MD Family Medicine [phone] 04/09/2024 2:30 PM Destiny Schultz RN [facility] [phone] 04/21/2024 10:30 AM Chandler Pena MD Urology [phone] 11/24/2024 1:40 PM (Arrive by 1:25 PM) Sheryl Pena PA-C Dermatology [phone] Janiya Cárdenas RN documented in this encounter Plan of Treatment Upcoming Encounters Date Type Department Care Team (Late st Contact Info) Description 03/27/2024 3:00 PM EDT Scheduled Telephone [facility], [facility] [address] [facility] [place] [address] [facility], Nurse [facility] [address] [facility] [place] [address] 03/30/2024 3:40 PM EDT Telemedicine Family Medicine [address] [place] [phone] Verónica Benavides MD [address] [place] [address] [place] [address] 04/09/2024 2:30 PM EDT [facility] [place] [address] Destiny Schultz, POPPY [address] [facility] [place] [address] 04/21/2024 10:30 AM EDT Telemedicine Urology, [facility] [address] [facility] [place] [address] Chandler Pena MD [address] [place] [address] 11/24/2024 1:40 PM EDT Office Visit Dermatology [address] [place] [address] Sheryl Pena PA-C [address] [place] [address] [place] [address] Health Maintenance Due Date Last Done Comments [...] Additional history exists CKD PHOS USE SMARTSET 39168 02/08/202401/23, 08/07/2021, 11/09/2019, Additional history exists TSH 03/25/2024 03/25/2023, 10/2022, 10/28/2022, Additional history exists Influenza Vaccine (FLU shot) (#1) 2024 06/20/2022, 06/20/2022, 06/29/2021, Additional history exists CKD HGB USE SMARTSET 19708 05/26/202405/26, 05/26/2023, 04/07/2023, Additional history exists Pneumococcal [...] Documents on File Type Date Recorded Patient 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 p Communication Josselyn Judd Adult Child Health Care Power of Attor nathalie Care Teams Customer Engagement Analyst Relationship Specialty Start Date End Date Verónica Benavides MD [address] [place] [address] [place] [address] PCP - General Family Medicine 09/16/14 documented as of this encounter
--- OUTSIDE RECORDS SUMMARY | 2024-04-24 11:11 | External Medical Summary | Summary of Care ---
Author Name Unknown Organization [facility] Address [address] [place] [address] Phone [phone] Care Team Providers Care Phytopathology Teacher Name Role Phone Verónica Benavides MD Primary Care Provide r Reason for Visit * Reason Onset Date Comments Medication Management 03/22/2024 Encounter Details Date Type Department Care Team ([facility] st Contact Info) Description 03/22/2024 Telephone [facility], [facility] [address] [place] [facility] [place] [address] [facility], Nurse [facility] [address] [facility] [place] [id number] Medication Management Allergies Active Allergy Reactions Criticality [...] mouth in the morning. 08/08/2021 Active Nystatin 773382 UNIT/GM External Powder (Nystop)Indications: Lydia rash of [...] XL)Indications:Non-i schemic cardiomyopathy (HCC),Coronary artery disease involving mohegan coronary artery of mohegan heart without angina pectoris,HTN, goal below 140/90 [...] goal of less than 8.0% ([facility]) TEST UP TO FOUR TIMES DAILY [...] Tablet 3 07/08/2023 Active OneTouch Delica Plus [id number] :Type 2 diabetes mellitus with hemoglobin A1c goal of less than 8.0% ([facility]) Test up to two times daily or as directed by [facility] pharmacist 200 Each 3 [...] If no improvement on day 3, contact [facility] for possible home visit 1 [...] Continue synthroid Coronary artery disease invo lving mohegan coronary artery of mohegan heart without angina pectoris 07/03/2012 Overview: 60% [...] mRNA, LNP-s, No Pre serve, 2-Dose Series ([employer]) 08/29/2021,10/23/2020,10/02/2020 COVID-19, MRNA-LNP, 23-24, P F, 30 MCG/0.3 mL, 12 YRS AND ABOVE, IM ([employer]) 08/04/2023 Covid-19, Mrna, Lnp-s, Pf, B ivalent, 30 Mcg, IM, 12 yrs and above ([employer]) 08/02/2022 Influenza, Whole Virus 08/07/2000 Pneumococcal Conjugate [...] encounter Miscellaneous Notes * Telephone Encounter - Jennifer aDmon LPN - 03/23/2024 12:24 PM EDT Prior auth for fosfomycin approved. Tali made aware, she is calling pharmacy. Pt's daughter, Josselyn made aware and RX is at [facility]. Jennifer Damon LPN [facility] [...] fosfomycin. Urgent prior auth placed. EOC ID [id number] Will follow. [facility] 03/22/2024 documented in this encounter Plan of Treatment Upcoming Encounters Date Type Department Care Team (Late st Contact Info) Description 03/30/2024 3:40 PM EDT Telemedicine Family Medicine [address] [place] [phone] Verónica Benavides MD [address] [place] [address] [place] [address] 04/09/2024 2:30 PM EDT Home Visit [facility], [facility] [address] [place] [address] Destiny Schultz RN [address] [place] [address] 04/21/2024 10:30 AM EDT Telemedicine Urology, [facility] [address] [place] [address] Chandler Pena MD [address] [place] [address] 11/24/2024 1:40 PM EDT Office Visit Dermatology [address] [place] [address] Sheryl Pena PA-C [address] [place] [address] [place] [address] Health Maintenance Due Date Last Done Comments [...] , 03/10/2021, Additional history exists Albumin/Creatinine Ratio 02/08/20242 023, 01/18/2022, 12/23/2017, Additional history exists CKD PHOS USE SMARTSET 96323 02/08/2024/01/2023, 08/07/2021, 11/09/2019, Additional history exists TSH 03/25/2024 03/25/2023, 07/0 10/2022, 10/28/2022, Additional history exists Influenza Vaccine (FLU shot) (#1) 2024 06/20/2022, 06/20/2022, 06/29/2021, Additional history exists CKD HGB USE SMARTSET 68574 05/26/202405/26, 05/26/2023, 04/07/2023, Additional history exists Pneumococcal [...] on File Type Date Recorded 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
--- OUTSIDE RECORDS SUMMARY | 2024-04-24 11:11 | External Medical Summary | Summary of Care ---
Author Name Unknown Organization [facility] Address [address] [place] [address] Phone [phone] Care Team Providers Care Optical Assistant Name Role Phone Verónica Benavides MD Primary Care Provide r Reason for Visit * Reason Onset Date Comments [facility]: Maintenance 03/23/2024 Encounter Details Date Type Department Care Team (Late st Contact Info) Description 03/23/2024 Telephone [facility], [facility] [address] [place] [address] [facility], Nurse [facility] [address] [place] [address] [facility]: Maintenance Allergies Active Allergy [...] mouth in the morning. 08/08/2021 Active Nystatin [id number] UNIT/GM External Powder (Nystop)Indications: Lydia rash of [...] XL)Indications:Non-i schemic cardiomyopathy (HCC),Coronary artery disease involving grayling coronary artery of grayling heart without angina pectoris,HTN, goal below 140/90 [...] Tablet 3 07/08/2023 Active OneTouch Delica Plus [id number] :Type 2 diabetes mellitus with hemoglobin A1c goal of less than 8.0% ([facility]) Test up to two times daily or as directed by [facility] pharmacist 200 Each 3 07/11/2023 Active [...] If no improvement on day 3, contact [facility] for possible home visit 1 Each 11/28/2023 [...] Continue synthroid Coronary artery disease invo lving grayling coronary artery of grayling heart without angina pectoris 07/03/2012 Overview: 60% [...] mRNA, LNP-s, No Pre serve, 2-Dose Series ([employer]) 08/29/2021,10/23/2020,10/02/2020 COVID-19, MRNA-LNP, 23-24, P F, 30 MCG/0.3 mL, 12 YRS AND ABOVE, IM ([employer]ir[employer]) 08/04/2023 Covid-19, Mrna, Lnp-s, Pf, B ivalent, 30 Mcg, IM, 12 yrs and above ([employer]) 08/02/2022 Pneumococcal Conjugate Vacc, 13 Valent (Prevnar) [...] Encounter - Tali Patel RN - 03/23/2024 12:40 PM EDT [facility] Telephonic Nurse Follow-Up Call [facility] Subprogram: Primary Care at Home Follow Up [...] New medication(s) added: fosfomyacin Subjective: Condition Status: No change in symptoms Current Concerns: PC received from patients daughter states she received a PC [facility] that they do not carry the fosfomyacin And requested a pharmacy change PC to [facility]. Spoke to [facility] states they have the medication they just did not receive approval of prior auth from insurance yet As of 12:35pm 03/23/24 per oneyda loja prior auth is approved PC to pharmacy spoke with [facility]. Medication is processing Oneyda loja calling patients daughter to notify her F/u call placed Disposition: Issue resolved. All appropriate follow up scheduled. Future Visits Scheduled: Future Appointments-next 60 days Date/Time Provider Specialty Dept Phone 03/26/2024 10:15 AM Coordinator, Lise Lepe [facility] [phone] 03/30/2024 3:40 PM Verónica Benavides MD Family Medicine [phone] 04/09/2024 2:30 PM Destiny Schultz, PPOPY [facility] [phone] 04/21/2024 10:30 AM Chandler Pena MD Urology [phone] 11/24/2024 1:40 PM (Arrive by 1:25 PM) Colten Pena PA-C Dermatology [phone] Tali Patel, RN documented in this encounter Plan of Treatment Upcoming Encounters Date Type Department Care Team (Late st Contact Info) Description 03/26/2024 10:15 AM EDT Scheduled Telephone [facility], [facility] [address] [place] [address] Coordinator, [facility] [address] [facility] [place] [address] 03/30/2024 3:40 PM EDT Telemedicine Family Medicine [address] [place] [phone] Verónica Benavides MD [address] [place] [address] [place] [address] 04/09/2024 2:30 PM EDT Home Visit [facility] [address] [facility] [place] [address] Destiny Schultz, POPPY 132 [facility] [place] [address] 04/21/2024 10:30 AM EDT Telemedicine Urology, [facility] [address] [facility] [place] [address] Chandler Pena MD [address] [facility] [place] [address] 11/24/2024 1:40 PM EDT Office Visit Dermatology [address] [place] [address] Colten Pena PA-C [address] [place] [address] [place] [address] Health Maintenance Due Date Last Done Comments [...] Additional history exists CKD PHOS USE SMARTSET 14336 02/08/202401/23, 08/07/2021, 11/09/2019, Additional history exists TSH 03/25/2024 03/25/2023, 10/2022, 10/28/2022, Additional history exists Influenza Vaccine (FLU shot) (#1) 2024 06/20/2022, 06/20/2022, 06/29/2021, Additional history exists CKD HGB USE SMARTSET 75513 05/26/202405/26, 05/26/2023, 04/07/2023, Additional history exists Pneumococcal [...] Documents on File Type Date 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
--- OUTSIDE RECORDS SUMMARY | 2024-04-24 11:11 | External Medical Summary | Summary of Care ---
Author Name Unknown Organization [facility] Address [address] [place] [address] Phone [phone] Care Team Providers Care Post Acute Care Registered Nurse Name Role Phone Verónica Benavides MD Primary Care Provide r Reason for Visit * Reason Onset Date Comments Medication Management 03/22/2024 Encounter Details Date Type Department Care Team ([facility] st Contact Info) Description 03/22/2024 Telephone [facility], [facility] [address] [place] [address] [facility], Nurse [facility] [address] [facility] [place] [id number] Medication Management Allergies Active Allergy Reactions Criticality [...] mouth in the morning. 08/08/2021 Active Nystatin [id number] UNIT/GM External Powder (Nystop)Indications: Lydia rash of [...] XL)Indications:Non-i schemic cardiomyopathy (HCC),Coronary artery disease involving cahto coronary artery of cahto heart without angina pectoris,HTN, goal below 140/90 [...] Tablet 3 07/08/2023 Active OneTouch Delica Plus [id number] :Type 2 diabetes mellitus with hemoglobin A1c goal of less than 8.0% ([facility]) Test up to two times daily or as directed by [facility] pharmacist 200 Each 3 07/11/2023 [...] If no improvement on day 3, contact [facility] for possible home visit 1 [...] 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 Last Assessment & Plan: [facility] Triage Call: Reviewed last C&S [...] Continue synthroid Coronary artery disease invo lving cahto coronary artery of cahto heart without angina pectoris 07/03/2012 Overview: 60% [...] mRNA, LNP-s, No Pre serve, 2-Dose Series ([employer]) 08/29/2021,10/23/2020,10/02/2020 COVID-19, MRNA-LNP, 23-24, P F, 30 MCG/0.3 mL, 12 YRS AND ABOVE, IM ([employer]) 08/04/2023 Covid-19, Mrna, Lnp-s, Pf, B ivalent, 30 Mcg, IM, 12 yrs and above ([employer]) 08/02/2022 Influenza, Whole Virus 08/07/2000 Pneumococcal Conjugate [...] Miscellaneous Notes * Telephone Encounter - Jennifer Damon LPN - 03/23/2024 9:16 AM EDT Prior auth denied. Specific Rationale :Do not see medical record documentation of therapeutic failure on, intolerance to, contraindication to, or bacterial resistance to nitrofurantoin AND sulfamethoxazole-trimethoprim. Formulary Alternatives :sulfamethoxazole-trimethoprim, nitrofurantoin Sent appeal documentation as urgent Jennifer Damon LPN [facility] 03/23/2024 [...] allergy Ciprofloxacin or Levofloxacin: serious side effects Jennifer Damon LPN [facility] 03/23/2024 * Telephone Encounter - Jennifer Damon LPN - 03/22/2024 3:01 PM EDT Received teams msg that pt needs prior auth on fosfomycin. Urgent prior auth placed. EOC ID [id number] Will follow. Jennifer Damon LPN [facility] 03/22/2024 documented in this encounter Plan of Treatment Upcoming Encounters Date Type Department Care Team (Late st Contact Info) Description 03/23/2024 12:30 PM EDT Scheduled Telephone [facility] [place] [address] [place] [address] Coordinator, [facility] [address] [place] [address] 03/30/2024 3:40 PM EDT Telemedicine Family Medicine [address] [place] [phone] Verónica Benavides MD [address] [place] [address] [place] [address] 04/09/2024 2:30 PM EDT [facility] [address] [place] [address] Destiny Schultz, RN [address] [address] 04/21/2024 10:30 AM EDT Telemedicine Urology, [facility] [address] [place] [address] Chandler Pena MD [address] [place] [address] 11/24/2024 1:40 PM EDT Office Visit Dermatology [address] [place] [address] Sheryl Pena PA-C [address] [place] [address] [place] [address] Health Maintenance Due Date Last Done Comments [...] Additional history exists CKD PHOS USE SMARTSET 61187 02/08/2024 06/01/2023, 08/07/2021, 11/09/2019, Additional history exists TSH 03/25/2024 03/25/2023, 07/0 10/2022, 10/28/2022, Additional history exists Influenza Vaccine (FLU shot) (#1) 2024 06/20/2022, 06/20/2022, 06/29/2021, Additional history exists CKD HGB USE SMARTSET 73172 05/26/202405/26, 05/26/2023, 04/07/2023, Additional history exists Pneumococcal [...] Documents on File Type Date Recorded 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
--- OUTSIDE RECORDS SUMMARY | 2024-04-24 11:11 | External Medical Summary | Summary of Care ---
Author Name Unknown Organization [facility] Address [address] [place] [address] Phone [phone] Care Team Providers Care Hydroelectric Station Operator Chief Name Role Phone Verónica Benavides MD Primary Care Provide r Reason for Visit * Reason Onset Date Comments Follow Up 03/27/2024 Encounter Details Date Type Department Care Team (Late st Contact Info) Description 03/27/2024 3:00 PM EDT Scheduled Telephone [facility], [facility] [address] [place] [address] [facility], Nurse [facility] [address] [place] [address] Allergies Active Allergy Reactions Criticality Noted Date Comments Adhesive Tape Medium 01/30/2022 Ibuprofen Hives 01/13/2012 Aspirin Hives,Rash 09/15/2000 Sulfamethoxazole-Trimeth oprim Nausea/vomiting,Othe r (Please comment) 10/27/2020 Dizziness Ciprofloxacin Hcl 06/16/2019 Hoarse, dizzy,disoriented Morphine 09/21/2021 Blacked out Penicillins Hives,Rash 09/15/2000 Prednisone 12/30/2017 Weakness/memory changes/blurred vision documented as of this encounter (statuses as of 03/27/2024) Medications Medication Sig Dispensed Refills Start Date [...] mouth in the morning. 08/08/2021 Active Nystatin 235015 UNIT/GM External Powder (Nystop)Indications: Lydia rash of [...] XL)Indications:Non-i schemic cardiomyopathy (HCC),Coronary artery disease involving capitan grande band coronary artery of capitan grande band heart without angina pectoris,HTN, goal below 140/90 [...] Tablet 3 07/08/2023 Active OneTouch Delica Plus [id number] :Type 2 diabetes mellitus with hemoglobin A1c goal of less than 8.0% ([facility]) Test up to two times daily or as directed by [facility] pharmacist 200 Each 3 07/11/2023 [...] If no improvement on day 3, contact [facility] for possible home visit [...] as of this encounter (statuses as of 03/27/2024) Active Problems Problem Noted Date Diagnosed Date [...] Continue synthroid Coronary artery disease invo lving capitan grande band coronary artery of capitan grande band heart without angina pectoris 07/03/2012 Overview: 60% [...] as of this encounter (statuses as of 03/27/2024) Resolved Problems Problem Noted Date Diagnosed Date [...] as of this encounter (statuses as of 03/27/2024) Immunizations Name Administration Dates Next Due COVID-19 mRNA, LNP-s, No Pre serve, 2-Dose Series ([employer]) 08/29/2021,10/23/2020,10/02/2020 COVID-19, MRNA-LNP, 23-24, P F, 30 MCG/0.3 mL, 12 YRS AND ABOVE, IM ([employer]) 08/04/2023 Covid-19, Mrna, Lnp-s, Pf, B ivalent, 30 Mcg, IM, 12 yrs and above ([employer]) 08/02/2022 Pneumococcal Conjugate Vacc, 13 Valent (Prevnar) [...] encounter Miscellaneous Notes * Telephone Encounter - Evens Dalton RN - 03/27/2024 4:21 PM EDT Follow up phone call to patient, spoke to daughter Josselyn, she states patient is doing ok, she is tired from going to bathroom to urinate during the night. Urine is ok. No UTI s/s. Has an appointment with urology on Friday, 03/29. Advised to call [facility] at [phone] with any new or worsening symptoms, call 911 in case of emergency. documented in this encounter Plan of Treatment Upcoming Encounters Date Type Department Care Team (Late st Contact Info) Description 03/29/2024 9:45 AM EDT Telemedicine Urology, [facility] 132 [facility] [place] [address] Chandler Pena MD [address] [place] [address] 03/30/2024 3:40 PM EDT Telemedicine Family Medicine [address] [place] [phone] Verónica Benavides MD [address] [place] [address] [place] [address] 04/09/2024 2:30 PM EDT Home Visit [facility] [address] [place] [address] Destiny Schultz RN 132 [facility] [place] [address] 11/24/2024 1:40 PM EDT Office Visit Dermatology [address] [place] [address] Sheryl Pena PA-C [address] [place] [address] [place] [address] Health Maintenance Due Date Last Done Comments [...] Additional history exists CKD PHOS USE SMARTSET 35674 02/08/202401/23, 08/07/2021, 11/09/2019, Additional history exists TSH 03/25/2024 03/25/2023, 0710/2022, 10/28/2022, Additional history exists Influenza Vaccine (FLU shot) (#1) 2024 06/20/2022, 06/20/2022, 06/29/2021, Additional history exists CKD HGB USE SMARTSET 48292 05/26/202405/26, 05/26/2023, 04/07/2023, Additional history exists Pneumococcal [...] Documents on File Type Date 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
--- OUTSIDE RECORDS SUMMARY | 2024-04-24 11:12 | External Medical Summary | Summary of Care ---
Author Name Unknown Organization [facility] Address [address] [place] [address] Phone [phone] Care Team Providers Care Crane Ladle Person Name Role Phone Verónica Benavides MD Primary Care Provide r Reason for Visit * Reason Onset Date Comments [facility]: Maintenance 03/22/2024 Encounter Details Date Type Department Care Team (Late st Contact Info) Description 03/22/2024 9:30 AM EDT Scheduled Telephone [facility], [facility] 132 [facility] [place] [address] Coordinator, [facility] [address] [facility] [place] [address] Allergies Active Allergy Reactions Criticality Noted Date Comments Adhesive Tape Medium 01/30/2022 Ibuprofen Hives 01/13/2012 Aspirin Hives,Rash 09/15/2000 Sulfamethoxazole-Trimeth oprim Nausea/vomiting,Othe r (Please comment) 10/27/2020 Dizziness Ciprofloxacin Hcl 06/16/2019 Hoarse, dizzy,disoriented Morphine 09/21/2021 Blacked out Penicillins Hives,Rash 09/15/2000 Prednisone 12/30/2017 Weakness/memory changes/blurred vision documented as of this encounter (statuses as of 03/22/2024) Medications Medication Sig Dispensed Refills Start Date [...] mouth in the morning. 08/08/2021 Active Nystatin [id number] UNIT/GM External Powder (Nystop)Indications: Lydia rash of [...] XL)Indications:Non-i schemic cardiomyopathy (HCC),Coronary artery disease involving lone pine coronary artery of lone pine heart without angina pectoris,HTN, goal below 140/90 [...] Tablet 3 07/08/2023 Active OneTouch Delica Plus [id number] :Type 2 diabetes mellitus with hemoglobin A1c goal of less than 8.0% ([facility]) Test up to two times daily or as directed by [facility] pharmacist 200 Each 3 07/11/2023 [...] Take 3 g by mouth every 3 days for 3 doses. 3 Packet 03/22/2024 4 Active documented as of this encounter (statuses as of 03/22/2024) Active Problems Problem Noted Date Diagnosed Date [...] Continue synthroid Coronary artery disease invo lving lone pine coronary artery of lone pine heart without angina pectoris 07/03/2012 Overview: 60% [...] as of this encounter (statuses as of 03/22/2024) Resolved Problems Problem Noted Date Diagnosed Date [...] as of this encounter (statuses as of 03/22/2024) Immunizations Name Administration Dates Next Due COVID-19 mRNA, LNP-s, No Pre serve, 2-Dose Series ([employer]) 08/29/2021,10/23/2020,10/02/2020 COVID-19, MRNA-LNP, 23-24, P F, 30 MCG/0.3 mL, 12 YRS AND ABOVE, IM ([employer]) 08/04/2023 Covid-19, Mrna, Lnp-s, Pf, B ivalent, 30 Mcg, IM, 12 yrs and above ([employer]) 08/02/2022 Influenza, Whole Virus 08/07/2000 Pneumococcal Conjugate [...] Telephone Encounter - Tali Patel RN - 03/22/2024 1:47 PM EDT Patients preferred pharmacy is noted [facility] [place] can you please change Tali Patel RN, BSN [facility] residential program managerMail Messenger Contractor * Addendum Note - Libia Sanchez MD - 03/22/2024 1:19 PM EDTAddended by: LIBIA SANCHEZ on: 03/22/2024 01:19 PM Modules accepted: Orders * Telephone Encounter - Libia Sanchez MD - 03/22/2024 1:05 PM EDT Recommendations: C/w the cephalexin for now and will add on trial of fosfomycin given her urine culture contains multiple organisms. Plan Fosfomycin Tromethamine 3 GM Oral Packet (Monurol) E * Telephone Encounter - Tali Patel RN - 03/22/2024 12:06 PM EDT [facility] Telephonic Nurse Follow-Up Call [facility] Subprogram: Primary Care at Home Follow Up Call Type: Routine follow up call / Status Check Acute issue requiring follow-up call: follow up on UTI symptoms after starting antibiotic Objective: 02/20/2024 2:00 PM 02/20/2024 1:59 PM [...] DME Needs: NO DME needs identified Medications: Cephalexin 500 mg , Pyridium 200mg 1 tab tid as needed for painful urination Subjective: Condition Status: No change in symptoms Current Concerns: Spoke to Josselyn patients DTR Josselyn states patient was on keflex and doxycycline d/t a skin infection on her face and started with UTI sx the day after the ABX ended Patient started with urinary frequency and burning. New RX for keflex and pyridium by PCP Josselyn questioning if Keflex is the right ABX since she developed UTI sx after being on keflex fora week prior to developing UTI sx and also hasn't seen much of an improvement w/ UTI sx with current dose of keflex Josselyn states pyridium is helping with the burning Pt still has urinary frequency more than normal Josselyn denies patient has Fevers,chills,N,V,abd pain/back pain I do not see cephalexin listed in sensitivities [facility] please review culture and advise if keflex is appropriate [facility]acy [facility] choice is [facility] Disposition: Routed to [facility] and/or [facility] Care Team for further advice Future Visits Scheduled: Future Appointments-next 60 days Date/Time Provider Specialty Dept Phone 03/30/2024 3:40 PM Verónica Benavides MD Family Medicine [phone] 04/09/2024 2:30 PM Destiny Schultz, POPPY [facility] [phone] 04/21/2024 10:30 AM Chandler Pena MD Urology [phone] 11/24/2024 1:40 PM (Arrive by 1:25 PM) Sheryl Pena PA-C Dermatology [phone] Tali Patel RN * Telephone Encounter - Beth Bailon RN - 03/22/2024 9:58 AM EDT [facility] Telephonic Nurse Follow-Up Call [facility] Subprogram: Primary Care at Home Follow Up Call Type: UTI follow up Acute issue requiring follow-up call: Other: follow up on UTI symptoms after starting antibiotic Objective: 02/20/2024 2:00 PM 02/20/2024 1:59 PM [...] DME needs identified Medications: New medication(s) added: Cephalexin 500 mg , Pyridium 200mg 1 tab tid as needed for painful urination Subjective: Condition Status: [facility] Current Concerns: Left VM for daughterJosselyn requesting return call with update. Disposition: Follow up call scheduled for tomorrow with SUPERVISOR MULTIFOCAL L[employer] Api Product Manager Future Visits Scheduled: Future Appointments-next 60 days Date/Time Provider Specialty Dept Phone 03/30/2024 3:40 PM Verónica Benavides MD Family Medicine [phone] 04/09/2024 2:30 PM Destiny Schultz, RN [facility] [phone] 04/21/2024 10:30 AM Chandler Pena MD Urology [phone] 11/24/2024 1:40 PM (Arrive by 1:25 PM) Sheryl Pena PA-Antonio Dermatology [phone] Beth Bailon RN documented in this encounter Plan of Treatment Upcoming Encounters Date Type Department Care Team (Late st Contact Info) Description 03/30/2024 3:40 PM EDT Telemedicine Family [address] [phone] Verónica Benavides MD [address] [place] [address] [place] [address] 04/09/2024 2:30 PM EDT [facility] [address] [place] [address] Destiny Schultz, RN [address] [place] [address] 04/21/2024 10:30 AM EDT Telemedicine Urology, [facility] [address] [place] [address] Chandler Pena MD [address] [place] [address] 11/24/2024 1:40 PM EDT Office Visit Dermatology [address] [place] [address] Sheryl Pena PA-C [address] [place] [address] [place] [address] Health Maintenance Due Date Last Done Comments [...] Additional history exists CKD PHOS USE SMARTSET 01568 02/08/202401/23, 08/07/2021, 11/09/2019, Additional history exists TSH 03/25/2024 03/25/2023, 0710/2022, 10/28/2022, Additional history exists Influenza Vaccine (FLU shot) (#1) 2024 06/20/2022, 06/20/2022, 06/29/2021, Additional history exists CKD HGB USE SMARTSET 65233 05/26/202405/26, 05/26/2023, 04/07/2023, Additional history exists Pneumococcal [...] Documents on File Type Date Recorded 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
--- OUTSIDE RECORDS SUMMARY | 2024-04-24 11:12 | External Medical Summary | Summary of Care ---
Author Name Unknown Organization [facility] Address [address] [place] [address] Phone [phone] Care Team Providers Care Trial Manager Name Role Phone Verónica Benavides MD Primary Care Provide r Reason for Visit * Reason Onset Date Comments [facility]: Maintenance 03/22/2024 Encounter Details Date Type Department Care Team (Late st Contact Info) Description 03/22/2024 9:30 AM EDT Scheduled Telephone [facility], [facility] 132 [facility] [place] [address] Coordinator, [facility] 132 [facility] [place] [address] Allergies Active Allergy Reactions Criticality Noted Date [...] mouth in the morning. 08/08/2021 Active Nystatin 759701 UNIT/GM External Powder (Nystop)Indications: Lydia rash of [...] Tablet 3 07/08/2023 Active OneTouch Delica Plus [id number] :Type 2 diabetes mellitus with hemoglobin A1c [...] If no improvement on day 3, contact [facility] for possible home visit 1 Each [...] mRNA, LNP-s, No Pre serve, 2-Dose Series (GirlsAskGuys.com) 08/29/2021,10/23/2020,10/02/2020 COVID-19, MRNA-LNP, 23-24, P F, 30 MCG/0.3 mL, 12 YRS AND ABOVE, IM ([employer]) 08/04/2023 Covid-19, Mrna, Lnp-s, Pf, B ivalent, 30 Mcg, IM, 12 yrs and above ([employer]sAskGuys.com) 08/02/2022 Influenza, Whole Virus 08/07/2000 Pneumococcal Conjugate [...] [facility] Telephonic Nurse Follow-Up Call [facility] Subprogram: Primary Care at Home Follow [...] do not see cephalexin listed in sensitivities [facility] please review culture and advise if keflex is appropriate Pharmacy of choice is [facility] Disposition: Routed to [facility] and/or [facility] at Home Care Team for further advice Future Visits Scheduled: Future Appointments-next 60 days Date/Time Provider Specialty Dept Phone 03/30/2024 3:40 PM Verónica Benavides MD Family Medicine [phone] 04/09/2024 2:30 PM Destiny Schultz, POPPY [facility] [phone] 04/21/2024 10:30 AM Chandler Pena MD Urology [phone] 11/24/2024 1:40 PM (Arrive by 1:25 PM) Sheryl Pena PA-C Dermatology [phone] Tali Patel RN * Telephone Encounter - Beth Bailon RN - 03/22/2024 9:58 AM EDT [facility] Telephonic Nurse Follow-Up Call [facility] Subprogram: Primary Care at Home Follow [...] needed for painful urination Subjective: Condition Status: [facility] Current Concerns: Left VM for daughterJoseslyn requesting return call with update. 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 Future Visits Scheduled: Future Appointments-next 60 days Date/Time Provider Specialty Dept Phone 03/30/2024 3:40 PM Verónica Benavides MD Family Medicine [phone] 04/09/2024 2:30 PM Destiny Schultz, RN [facility] [phone] 04/21/2024 10:30 AM Chandler Pena MD Urology [phone] 11/24/2024 1:40 PM (Arrive by 1:25 PM) Sheryl Pena PA-C Dermatology [phone] Beth Bailon, RN documented in this encounter Plan of Treatment Upcoming Encounters Date Type Department Care Team (Late st Contact Info) Description 03/30/2024 3:40 PM EDT Telemedicine Family Medicine [address] [place] [phone] Verónica Benavides MD [address] [place] [address] [place] [address] 04/09/2024 2:30 PM EDT Home Visit [facility], [facility] 132 [facility] [place] [address] Destiny Schultz, RN 132 [facility] [place] [address] 04/21/2024 10:30 AM EDT Telemedicine Urology, [facility] 132 [facility] [place] [address] Chandler Pena MD Gladis [place] [address] 11/24/2024 1:40 PM EDT Office Visit Dermatology [address] [place] [address] Sheryl Pena PA-C [address] [place] [address] [place] [address] Health Maintenance Due Date Last Done Comments [...] Additional history exists CKD PHOS USE SMARTSET 39069 02/08/202401/23, 08/07/2021, 11/09/2019, Additional history exists TSH 03/25/2024 03/25/2023, 07/0 10/2022, 10/28/2022, Additional history exists Influenza Vaccine (FLU shot) (#1) 2024 06/20/2022, 06/20/2022, 06/29/2021, Additional history exists CKD HGB USE SMARTSET 27631 05/26/202405/26, 05/26/2023, 04/07/2023, Additional history exists Pneumococcal [...] Documents on File Type Date Recorded Patient Neurology Technologist Expl 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 Communication Josselyn Judd [facility] Health Care Power of Attor nathalie Care Teams Trial Manager Relationship Specialty Start Date End Date Verónica Benavides MD [address] [place] [address] [place] [phone] PCP - General Family Medicine 09/16/14 documented as of this encounter
--- OUTSIDE RECORDS SUMMARY | 2024-04-24 11:12 | External Medical Summary | Summary of Care ---
Author Name Unknown Organization [facility] Address [address] [place] [address] Phone [phone] Care Team Providers Care Diversified Crops Farmworker Name Role Phone Verónica Benavides MD Primary Care Provide r Reason for Visit * Reason Onset Date Comments [facility]: Maintenance 03/22/2024 Encounter Details Date Type Department Care Team (Late st Contact Info) Description 03/22/2024 9:30 AM EDT Scheduled Telephone [facility], [facility] 132 [facility] [place] [address] Coordinator, [facility] 132 [facility] [place] [address] Allergies Active Allergy Reactions Criticality Noted Date [...] mouth in the morning. 08/08/2021 Active Nystatin 467024 UNIT/GM External Powder (Nystop)Indications: Lydia rash of [...] XL)Indications:Non-i schemic cardiomyopathy (HCC),Coronary artery disease involving [place] coronary artery of [place] heart without angina pectoris,HTN, goal below 140/90 [...] long-term current use of insulin ([facility]),Type 2 diabetes mellitus with hemoglobin [...] Tablet 3 07/08/2023 Active OneTouch Delica Plus [id number] :Type 2 diabetes mellitus with hemoglobin A1c [...] If no improvement on day 3, contact [facility] for possible home visit 1 [...] 14 days. 28 Capsule 03/20/2024 4 Active documented as of this encounter [...] Continue synthroid Coronary artery disease invo lving [place] coronary artery of [place] heart without angina pectoris 07/03/2012 Overview: 60% [...] mRNA, LNP-s, No Pre serve, 2-Dose Series (DirectRM) 08/29/2021,10/23/2020,10/02/2020 COVID-19, MRNA-LNP, 23-24, P F, 30 MCG/0.3 mL, 12 YRS AND ABOVE, IM ([employer]ist[employer]-Comirnat[employer]ge [employer]) 08/04/2023 Covid-19, Mrna, Lnp-s, Pf, B ivalent, 30 Mcg, IM, 12 yrs and above (DirectRM) 08/02/2022 Influenza, Whole Virus 08/07/2000 Pneumococcal Conjugate [...] Telephone Encounter - Nigel Cosme MD - 03/22/2024 1:05 PM EDT Recommendations: No orders of the defined types were placed in this encounter. E * Telephone Encounter - Tali Patel RN - 03/22/2024 12:06 PM EDT [facility] Telephonic Nurse Follow-Up Call [facility] Subprogram: Primary Care at Home [...] do not see cephalexin listed in sensitivities [facility] please review culture and advise if keflex is appropriate Pharmacy of choice is [facility] Disposition: Routed to [facility] and/or [facility] Care Team for further advice Future Visits Scheduled: Future Appointments-next 60 days Date/Time Provider Specialty Dept Phone 03/30/2024 3:40 PM Verónica Benavides MD Family Medicine [phone] 04/09/2024 2:30 PM Destiny Schultz, POPPY [facility] [phone] 04/21/2024 10:30 AM Chandler Pena MD Urology [phone] 11/24/2024 1:40 PM (Arrive by 1:25 PM) Sheryl Pena PA-C Dermatology [phone] Tali Patel RN * Telephone Encounter - Beth Bailon RN - 03/22/2024 9:58 AM EDT [facility] Telephonic Nurse Follow-Up Call [facility] Subprogram: Primary Care at Home [...] needed for painful urination Subjective: Condition Status: [facility] Current Concerns: Left VM for daughterJosselyn requesting return call with update. 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 Future Visits Scheduled: Future Appointments-next 60 days Date/Time Provider Specialty Dept Phone 03/30/2024 3:40 PM Verónica Benavides MD Family Medicine [phone] 04/09/2024 2:30 PM Destiny Schultz RN [facility] [phone] 04/21/2024 10:30 AM Chandler Pena MD Urology [phone] 11/24/2024 1:40 PM (Arrive by 1:25 PM) Sheryl Pena PA-C Dermatology [phone] Beth Bailon RN documented in this encounter Plan of Treatment Upcoming Encounters Date Type Department Care Team (Late st Contact Info) Description 03/30/2024 3:40 PM EDT Telemedicine Family Medicine [address] [place] [phone] Verónica Benavides MD [address] [place] [address] [place] [address] 04/09/2024 2:30 PM EDT Home Visit [facility] at [facility] 132 [facility] [place] [address] Destiny Schultz, POPPY 132 [facility] [place] [address] 04/21/2024 10:30 AM EDT Telemedicine Urology, [facility] 132 [facility] [place] [address] Chandler Pena MD 27 [facility] [place] [address] 11/24/2024 1:40 PM EDT Office Visit Dermatology [address] [place] [address] Sheryl ePna PA-C [address] [place] [address] [place] [address] Health Maintenance Due Date Last Done Comments [...] Additional history exists CKD PHOS USE SMARTSET 16666 02/08/202401/23, 08/07/2021, 11/09/2019, Additional history exists TSH 03/25/2024 03/25/2023, 0710/2022, 10/28/2022, Additional history exists Influenza Vaccine (FLU shot) (#1) 2024 06/20/2022, 06/20/2022, 06/29/2021, Additional history exists CKD HGB USE SMARTSET 04253 05/26/202405/26, 05/26/2023, 04/07/2023, Additional history exists Pneumococcal [...] Documents on File Type Date Recorded 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
--- OUTSIDE RECORDS SUMMARY | 2024-04-24 11:12 | External Medical Summary | Summary of Care ---
Author Name Unknown Organization [facility] Address [address] [place] [address] Phone [phone] Care Team Providers Care Equipment Detailer Name Role Phone Verónica Benavides MD Primary Care Provide r Reason for Visit * Reason Onset Date Comments [facility]: Maintenance 03/22/2024 Encounter Details Date Type Department Care Team (Late st Contact Info) Description 03/22/2024 9:30 AM EDT Scheduled Telephone [facility], [facility] 132 [facility] [place] [address] Coordinator, [facility] 132 [facility] [place] [address] Allergies Active Allergy Reactions Criticality Noted Date [...] mouth in the morning. 1 Active Nystatin 094148 UNIT/GM External Powder (Nystop)Indication s:Lydia rash of [...] XL)Indications:Non -ischemic cardiomyopathy (HCC),Coronary artery disease involving [place] coronary artery of [place] heart without angina pectoris,HTN, goal below [...] long-term current use of insulin ([facility]),Type 2 diabetes mellitus with hemoglobin A1c goal of less than 8.0% ([facility]) TEST UP TO FOUR TIMES DAILY [...] Tablet 3 3 Active OneTouch Delica Plus [id number] ns:Type 2 diabetes mellitus with hemoglobin A1c goal of less than 8.0% ([facility]) Test up to two times daily or as directed by [facility] pharmacist 200 Each 3 3 [...] evening meals. 180 Tablet 1 4 Active Torsemide 20 MG Oral Tablet (Demadex)Indicatio ns:Heart failure, systolic, due to idiopathic cardiomyopathy (HCC) Take 60 mg by mouth in the morning, 40 mg by mouth in the afternoon. Additional 20 mg in the afternoon ONLY if directed by health care provider for weight gain of 3 lbs or more. 180 Tablet 3 4 Active Additional Information Patient taking differently: 60 mg Oral BID (.AM/PM), (No instructions reported), Reported on 12/19/2023 DIURETIC TITRATION PLAN If no improvement on day 3, contact [facility] for possible home visit 1 Each 4 Active Meclizine HCl 25 MG Oral Tablet (Antivert)Indicati ons:Vertigo Take 1 tablet by mouth 3 times a day as needed for dizziness 30 Tablet 5 4 Active Ondansetron HCl 4 MG Oral Tablet Take 1 Tablet by mouth every 6 hours as needed for Nausea. 20 Tablet 4 Active Erythromycin 5 MG/GM Ophthalmic Ointment Apply .25 inch ribbon to right lower eyelid 4 times daily for 14 days then daily at bedtime 3.5 g 3 4 Active Additional Information Patient not taking.Reported [...] 4 Active Spironolactone 25 MG Oral Tablet (Aldactone)Indicat ions:Non-ischemic cardiomyopathy (HCC) TAKE 1/2 TABLET BY MOUTH [...] every 3 days. 3 Packet 4 Active Fosfomycin Tromethamine 3 GM Oral Packet (Monurol) Take 3 g by mouth every 3 days for 3 doses. 3 Packet 4 03/22/20 24 Discontinued documented as of this encounter [...] Continue synthroid Coronary artery disease invo lving [place] coronary artery of [place] heart without angina pectoris 07/03/2012 Overview: [...] mRNA, LNP-s, No Pre serve, 2-Dose Series (Globial) 08/29/2021,10/23/2020,10/02/2020 COVID-19, MRNA-LNP, 23-24, P F, 30 MCG/0.3 mL, 12 YRS AND ABOVE, IM ([facility]) 08/04/2023 Covid-19, Mrna, Lnp-s, Pf, B ivalent, 30 Mcg, IM, 12 yrs and above (Globial) 08/02/2022 Influenza, Whole Virus 08/07/2000 Pneumococcal Conjugate [...] Note - Libia Sanchez MD - 03/22/2024 1:50 PM EDTAddended by: LIBIA SANCHEZ on: 03/22/2024 01:50 PM Modules accepted: Orders * Telephone Encounter - Tali Patel RN - 03/22/2024 1:47 PM EDT Patients [facility] pharmacy is [facility] [place] can you please change Tali Patel RN, BSN [facility] patternatorFeed In Worker * Addendum Note - Libia Sanchez MD [...] (Monurol) E * Telephone Encounter - Tali aPtel RN - 03/22/2024 12:06 PM EDT [facility] Telephonic Nurse Follow-Up Call [facility] Subprogram: Primary Care at Home Follow [...] do not see cephalexin listed in sensitivities [facility] please review culture and advise if keflex is appropriate Pharmacy of choice is [facility] Disposition: Routed to [facility] and/or [facility] at Home Care Team for further advice Future Visits Scheduled: Future Appointments-next 60 days Date/Time Provider Specialty Dept Phone 03/30/2024 3:40 PM Verónica Benavides MD Family Medicine [phone] 04/09/2024 2:30 PM Destiny Schultz RN [facility] [phone] 04/21/2024 10:30 AM Chandler Pena MD Urology [phone] 11/24/2024 1:40 PM (Arrive by 1:25 PM) Sheryl Pena PA-C Dermatology [phone] Tali Patel RN * Telephone Encounter - Beth Bailon RN - 03/22/2024 9:58 AM EDT [facility] Telephonic Nurse Follow-Up Call [facility] Subprogram: Primary Care at Home Follow [...] Follow up call scheduled for 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 with [facility] 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 Future Visits Scheduled: Future Appointments-next 60 days Date/Time Provider Specialty Dept Phone 03/30/2024 3:40 PM Verónica Benavides MD Family Medicine [phone] 04/09/2024 2:30 PM Destiny Schultz RN [facility] [phone] 04/21/2024 10:30 AM Chandler Pena MD Urology [phone] 11/24/2024 1:40 PM (Arrive by 1:25 PM) Sheryl Pena PA-Antonio Dermatology [phone] Beth Bailon RN documented in this encounter Plan of Treatment Upcoming Encounters Date Type Department Care Team (Late st Contact Info) Description 03/30/2024 3:40 PM EDT Telemedicine Family Medicine [address] [place] [phone] Verónica Benavides MD [address] [place] [address] [place] [address] 04/09/2024 2:30 PM EDT Home Visit [place] [facility] [place], [address] [place] [address] Destiny Schultz, POPPY 132 [place] [address] 04/21/2024 10:30 AM EDT Telemedicine Urology, [facility] 132 [place] [address] Chandler Pena MD 27 [place] [address] 11/24/2024 1:40 PM EDT Office Visit Dermatology [address] [place] [address] Sheryl Pena PA-C [address] [place] [address] [place] [address] Health Maintenance Due Date Last Done Comments [...] Additional history exists CKD PHOS USE SMARTSET 86906 02/08/2024 06/1 01/2023, 08/07/2021, 11/09/2019, Additional history exists TSH 03/25/2024 03/25/2023, 07/0 10/2022, 10/28/2022, Additional history exists Influenza Vaccine (FLU shot) (#1) 2024 06/20/2022, 06/20/2022, 06/29/2021, Additional history exists CKD HGB USE SMARTSET 96552 05/26/202405/26, 05/26/2023, 04/07/2023, Additional history exists Pneumococcal [...] Documents on File Type Date Recorded 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
--- OUTSIDE RECORDS SUMMARY | 2024-04-24 11:12 | External Medical Summary | Summary of Care ---
Author Name Unknown Organization [facility] Address [address] [place] [address] Phone [phone] Care Team Providers Care Education Specialist Name Role Phone Verónica Benavides MD Primary Care Provide r Reason for Visit * Reason Onset Date Comments Medication Management 03/22/2024 Encounter Details Date Type Department Care Team ([facility] st Contact Info) Description 03/22/2024 Telephone [facility], [facility] [address] [place] [address] [facility], Nurse [facility] [address] [facility] [place] [id number] Medication Management Allergies Active Allergy Reactions Criticality [...] mouth in the morning. 08/08/2021 Active Nystatin 049548 UNIT/GM External Powder (Nystop)Indications: Lydia rash of [...] Tablet 3 07/08/2023 Active OneTouch Delica Plus [id number] :Type 2 diabetes mellitus with hemoglobin A1c goal of less than 8.0% ([facility]) Test up to two times daily or as directed by [facility] pharmacist 200 Each 3 07/11/2023 Active [...] mRNA, LNP-s, No Pre serve, 2-Dose Series ([employer]) 08/29/2021,10/23/2020,10/02/2020 COVID-19, MRNA-LNP, 23-24, P F, 30 MCG/0.3 mL, 12 YRS AND ABOVE, IM ([employer]irnat[employer]) 08/04/2023 Covid-19, Mrna, Lnp-s, Pf, B ivalent, 30 Mcg, IM, 12 yrs and above ([employer]) 08/02/2022 Pneumococcal Conjugate Vacc, 13 Valent (Prevnar) [...] fosfomycin. Urgent prior auth placed. EOC ID [id number] Will follow. Jennifer Damon LPN [facility] 03/22/2024 documented in this encounter Plan of Treatment Upcoming Encounters Date Type Department Care Team (Late st Contact Info) Description 03/23/2024 12:30 PM EDT Scheduled Telephone [facility], [facility] 132 [facility] [place] [address] Coordinator, [facility] 132 [facility] [place] [address] 03/30/2024 3:40 PM EDT Telemedicine Family Medicine [address] [place] [phone] Verónica Benavides MD [address] [place] [address] [place] [address] 04/09/2024 2:30 PM EDT [facility] [place] [address] Destiny Schultz, POPPY 132 [facility] [place] [address] 04/21/2024 10:30 AM EDT Telemedicine Urology, [facility] [place] [address] Chandler Pena MD [address] [facility] [place] [address] 11/24/2024 1:40 PM EDT Office Visit Dermatology [address] [place] [address] Sheryl Pena PA-C [address] [place] [address] [place] [address] Health Maintenance Due Date Last Done Comments [...] Additional history exists CKD PHOS USE SMARTSET 47793 02/08/202401/23, 08/07/2021, 11/09/2019, Additional history exists TSH 03/25/2024 03/25/2023, 0710/2022, 10/28/2022, Additional history exists Influenza Vaccine (FLU shot) (#1) 2024 06/20/2022, 06/20/2022, 06/29/2021, Additional history exists CKD HGB USE SMARTSET 48740 05/26/202405/26, 05/26/2023, 04/07/2023, Additional history exists Pneumococcal [...] Documents on File Type Date Recorded Patient Visitor Services Associate Expl anation Advance Directives and Living Will 08/10/2021 ADVANCE DIRECTIVE / LIVING WILL LIVING WILL Healthcare Agents on File Name Relationship Healthcare Agent [facility] Communication Josselyn Judd Adult Child Health Care Power of Attor nathalie Care Teams Education Specialist Relationship Specialty Start Date End Date Verónica Benavides MD [address] [place] [address] [place] [phone] PCP - General Family Medicine 09/16/14 documented as of this encounter
--- OUTSIDE RECORDS SUMMARY | 2024-04-24 11:12 | External Medical Summary | Summary of Care ---
Author Name Unknown Organization [facility] Address [address] [place] [address] Phone [phone] Care Team Providers Care Transmission And Coordination Engineer Name Role Phone Verónica Benavides MD Primary Care Provide r Reason for Visit * Reason Onset Date Comments [facility]: Maintenance 03/20/2024 Encounter Details Date Type Department Care Team (Late st Contact Info) Description 03/20/2024 11:30 AM EDT Scheduled Telephone [facility], [facility] [address] [place] [address] [facility], Nurse [facility] [address] [place] [address] Allergies Active Allergy Reactions Criticality Noted Date Comments Adhesive Tape Medium 01/30/2022 Ibuprofen Hives 01/13/2012 Aspirin Hives,Rash 09/15/2000 Sulfamethoxazole-Trimeth oprim Nausea/vomiting,Othe r (Please comment) 10/27/2020 Dizziness Ciprofloxacin Hcl 06/16/2019 Hoarse, dizzy,disoriented Morphine 09/21/2021 Blacked out Penicillins Hives,Rash 09/15/2000 Prednisone 12/30/2017 Weakness/memory changes/blurred vision documented as of this encounter (statuses as of 03/20/2024) Medications Medication Sig Dispensed Refills Start Date [...] mouth in the morning. 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 for possible home visit 1 Each [...] as of this encounter (statuses as of 03/20/2024) Active Problems Problem Noted Date Diagnosed Date [...] carrier 06/29/2021 Last Assessment & Plan: [facility] Triage Call: Reviewed last C&S - [...] Continue synthroid Coronary artery disease invo lving cloverdale coronary artery of cloverdale heart without angina pectoris 07/03/2012 Overview: 60% [...] as of this encounter (statuses as of 03/20/2024) Resolved Problems Problem Noted Date Diagnosed Date [...] as of this encounter (statuses as of 03/20/2024) Immunizations Name Administration Dates Next Due COVID-19 mRNA, LNP-s, No Pre serve, 2-Dose Series ([employer] Green) 08/29/2021,10/23/2020,10/02/2020 COVID-19, MRNA-LNP, 23-24, P F, 30 MCG/0.3 mL, 12 YRS AND ABOVE, IM ([facility]) 08/04/2023 Covid-19, Mrna, Lnp-s, Pf, B ivalent, 30 Mcg, IM, 12 yrs and above ([facility] Green) 08/02/2022 Pneumococcal Conjugate Vacc, 13 Valent (Prevnar) [...] encounter Miscellaneous Notes * Telephone Encounter - Teressa Ramirez LPN - 03/20/2024 1:32 PM EDT Please see triage call today Teressa Ramirez LPN [facility] 03/20/2024,1:32 PM documented in this encounter Plan of Treatment Upcoming Encounters Date Type Department Care Team (Late st Contact Info) Description 03/22/2024 9:30 AM EDT Scheduled Telephone [facility], [facility] [address] [place] [address] Coordinator, [facility] [address] [place] [address] 03/30/2024 3:40 PM EDT Telemedicine Family Medicine [address] [phone] Verónica Benavides MD [address] [place] [address] [place] [address] 04/09/2024 2:30 PM EDT [facility], [facility] 132 [facility] [place] [address] Destiny Schultz, POPPY 132 [facility] [place] [address] 04/21/2024 10:30 AM EDT Telemedicine Urology, [facility] 132 [facility] [place] [address] Chandler Pena MD [address] [place] [address] 11/24/2024 1:40 PM EDT Office Visit Dermatology [address] [place] [address] Sheryl Pena PA-C [address] [place] [address] [place] [address] Health Maintenance Due Date Last Done Comments [...] Additional history exists CKD PHOS USE SMARTSET 70102 02/08/2024 06/1 01/2023, 08/07/2021, 11/09/2019, Additional history exists TSH 03/25/2024 03/25/2023, 07/0 10/2022, 10/28/2022, Additional history exists Influenza Vaccine (FLU shot) (#1) 2024 06/20/2022, 06/20/2022, 06/29/2021, Additional history exists CKD HGB USE SMARTSET 06306 05/26/202405/26, 05/26/2023, 04/07/2023, Additional history exists Pneumococcal [...] Documents on File Type Date Recorded 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
--- OUTSIDE RECORDS SUMMARY | 2024-04-24 11:12 | External Medical Summary | Summary of Care ---
Author Name Unknown Organization [facility] Address [address] [place] [address] Phone [phone] Care Team Providers Care School Business Administrator Name Role Phone Verónica Benavides MD Primary Care Provide r Reason for Visit * Reason Onset Date Comments [facility]: Maintenance 03/22/2024 Encounter Details Date Type Department Care Team (Late st Contact Info) Description 03/22/2024 9:30 AM EDT Scheduled Telephone [facility], [facility] 132 [facility] [place] [address] Coordinator, [facility] 132 [facility] [place] [address] Allergies Active Allergy Reactions Criticality Noted Date [...] mouth in the morning. 1 Active Nystatin [id number] UNIT/GM External Powder (Nystop)Indication s:Lydia rash of [...] XL)Indications:Non -ischemic cardiomyopathy (HCC),Coronary artery disease involving moapa coronary [...] Tablet 3 3 Active OneTouch Delica Plus [id number] ns:Type 2 diabetes mellitus with hemoglobin A1c goal of less than 8.0% ([facility]) Test up to two times daily or as directed by [facility] pharmacist 200 Each 3 3 Active [...] If no improvement on day 3, contact [facility] for possible home visit 1 [...] mRNA, LNP-s, No Pre serve, 2-Dose Series ([employer]) 08/29/2021,10/23/2020,10/02/2020 COVID-19, MRNA-LNP, 23-24, P F, 30 MCG/0.3 mL, 12 YRS AND ABOVE, IM ([facility]) 08/04/2023 Covid-19, Mrna, Lnp-s, Pf, B ivalent, 30 Mcg, IM, 12 yrs and above ([employer]) 08/02/2022 Influenza, Whole Virus 08/07/2000 Pneumococcal Conjugate [...] Encounter - Tali Patel RN - 03/22/2024 2:56 PM EDT PC to KJ spoke to [facility] fosfomyacin is non formulary and not covered by insurance PC to ANGI garcia spoke to pharmacy staff They confirmed medication is non formulary and will need a prior auth for coverage Teams sent to aiyana loja she is aware And will work on prior auth PC to josselyn patients DTR she is aware PC placed for f/u aTli Patel RN, BSN [facility] magistrate judgePrincipal Investigator * Addendum Note - Libia Sanchez MD - 03/22/2024 1:50 PM EDTAddended by: LIBIA SANCHEZ on: 03/22/2024 01:50 PM Modules accepted: Orders * Telephone Encounter - Tali Patel RN - 03/22/2024 1:47 PM EDT Patients preferred pharmacy is noted to be [facility] in [place] can you please change Tali Patel RN, BSN [facility] magistrate judgePrincipal Investigator * Addendum Note - Libia Sanchez MD [...] [facility] Telephonic Nurse Follow-Up Call [facility] Subprogram: Primary Care at Home [...] do not see cephalexin listed in sensitivities [facility] please review culture and advise if keflex is appropriate Pharmacy of choice is [facility] Disposition: Routed to [facility] and/or [facility] Care Team for further advice Future Visits Scheduled: Future Appointments-next 60 days Date/Time Provider Specialty Dept Phone 03/30/2024 3:40 PM Verónica Benavides MD Family Medicine [phone] 04/09/2024 2:30 PM Destiny Schultz RN [facility] [phone] 04/21/2024 10:30 AM Chandler Pena MD Urology [phone] 11/24/2024 1:40 PM (Arrive by 1:25 PM) Sheryl Pena PA-C Dermatology [phone] Tali Patel RN * Telephone Encounter - Beth Bailon RN - 03/22/2024 9:58 AM EDT [facility] Telephonic Nurse Follow-Up Call [facility] Subprogram: Primary Care at Home [...] needed for painful urination Subjective: Condition Status: [facility] Current Concerns: Left VM for daughterJosselyn requesting return call with update. Disposition: Follow up call scheduled for tomorrow with [facility] Ergonomics Engineer Future Visits Scheduled: Future Appointments-next 60 days Date/Time Provider Specialty Dept Phone 03/30/2024 3:40 PM Verónica Benavides MD Family Medicine [phone] 04/09/2024 2:30 PM Destiny Schultz RN [facility] [phone] 04/21/2024 10:30 AM Chandler Pena MD Urology [phone] 11/24/2024 1:40 PM (Arrive by 1:25 PM) Sheryl Pena PA-C Dermatology [phone] Beth J Burfield, RN documented in this encounter Plan of Treatment Upcoming Encounters Date Type Department Care Team (Late st Contact Info) Description 03/23/2024 12:30 PM EDT Scheduled Telephone [facility], [facility] [address] [place] [address] Coordinator, [facility] [address] [place] [address] 03/30/2024 3:40 PM EDT Telemedicine Family Medicine [address] [place] [phone] Verónica Benavides MD [address] [place] [address] [place] [address] 04/09/2024 2:30 PM EDT Home Visit [facility], [facility] [address] [place] [address] Destiny Schultz RN [address] [place] [address] 04/21/2024 10:30 AM EDT Telemedicine Urology, [facility] [address] [place] [address] Chandler Pena MD [address] [place] [address] 11/24/2024 1:40 PM EDT Office Visit Dermatology [address] [place] [address] Sheryl Pena PA-C [address] [place] [address] [place] [address] Health Maintenance Due Date Last Done Comments [...] Additional history exists CKD PHOS USE SMARTSET 71663 02/08/202401/23, 08/07/2021, 11/09/2019, Additional history exists TSH 03/25/2024 03/25/2023, 0710/2022, 10/28/2022, Additional history exists Influenza Vaccine (FLU shot) (#1) 2024 06/20/2022, 06/20/2022, 06/29/2021, Additional history exists CKD HGB USE SMARTSET 82226 05/26/202405/26, 05/26/2023, 04/07/2023, Additional history exists Pneumococcal [...] Documents on File Type Date Recorded 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
--- OUTSIDE RECORDS SUMMARY | 2024-04-24 11:12 | External Medical Summary | Summary of Care ---
Author Name Unknown Organization [facility] Address [address] [place] [address] Phone [phone] Care Team Providers Care Truck Dispatcher Name Role Phone Verónica Benavdies MD Primary Care Provide r Reason for Visit * Reason Onset Date Comments [facility]: Maintenance 03/22/2024 Encounter Details Date Type Department Care Team (Late st Contact Info) Description 03/22/2024 9:30 AM EDT Scheduled Telephone [facility], [facility] 132 [facility] [place] [address] Coordinator, [facility] 132 [facility] [place] [address] Allergies Active Allergy Reactions Criticality Noted Date [...] mouth in the morning. 08/08/2021 Active Nystatin 432859 UNIT/GM External Powder (Nystop)Indications: Lydia rash of [...] XL)Indications:Non-i schemic cardiomyopathy (HCC),Coronary artery disease involving eagle coronary artery of eagle heart without angina pectoris,HTN, goal below 140/90 [...] Tablet 3 07/08/2023 Active OneTouch Delica Plus [id number] :Type 2 diabetes mellitus with hemoglobin A1c goal of less than 8.0% ([facility]) Test up to two times daily or as directed by [facility] pharmacist 200 Each 3 07/11/2023 Active [...] If no improvement on day 3, contact [facility] for possible home visit 1 Each [...] Continue synthroid Coronary artery disease invo lving eagle coronary artery of eagle heart without angina pectoris 07/03/2012 Overview: 60% [...] mRNA, LNP-s, No Pre serve, 2-Dose Series (Instant [employer]) 08/29/2021,10/23/2020,10/02/2020 COVID-19, MRNA-LNP, 23-24, P F, 30 MCG/0.3 mL, 12 YRS AND ABOVE, IM ([facility]) 08/04/2023 Covid-19, Mrna, Lnp-s, Pf, B ivalent, 30 Mcg, IM, 12 yrs and above ([employer]) 08/02/2022 Pneumococcal Conjugate Vacc, 13 Valent (Prevnar) [...] Patel RN - 03/22/2024 12:06 PM EDT [facility] Telephonic Nurse Follow-Up Call [facility] [...] do not see cephalexin listed in sensitivities [facility] please review culture and advise if keflex is appropriate Pharmacy of choice is [facility] Disposition: Routed to [facility] and/or [facility] at Home Care Team for further advice Future Visits Scheduled: Future Appointments-next 60 days Date/Time Provider Specialty Dept Phone 03/30/2024 3:40 PM Verónica Benavides MD Family Medicine [phone] 04/09/2024 2:30 PM Destiny Schultz, POPPY [facility] [phone] 04/21/2024 10:30 AM Chandler Pena MD Urology [phone] 11/24/2024 1:40 PM (Arrive by 1:25 PM) Sheryl Pena PA-C Dermatology [phone] Tali Patel RN * Telephone Encounter - Beth Bailon RN - 03/22/2024 9:58 AM EDT [facility] Telephonic [facility] Follow-Up Call [facility] [...] needed for painful urination Subjective: Condition Status: ARC Current Concerns: Left VM for daughterJosselyn requesting return call with update. Disposition: Follow up call scheduled for tomorrow with [facility] Civil Engineering Intern Future Visits Scheduled: Future Appointments-next 60 days Date/Time Provider Specialty Dept Phone 03/30/2024 3:40 PM Verónica Benavides MD Family Medicine [phone] 04/09/2024 2:30 PM Destiny Schultz, POPPY [facility] [phone] 04/21/2024 10:30 AM Chandler Pena MD Urology [phone] 11/24/2024 1:40 PM (Arrive by 1:25 PM) Sheryl Pena PA-Antonio Dermatology [phone] Beth Bailon RN documented in this encounter Plan of Treatment Upcoming Encounters Date Type Department Care Team (Late st Contact Info) Description 03/30/2024 3:40 PM EDT Telemedicine Family Medicine [address] [place] [phone] Verónica Benavides MD [address] [place] [address] [place] [address] 04/09/2024 2:30 PM EDT Home Visit [facility], [facility] [address] [place] [address] Destiny Schultz, RN [address] [place] [address] 04/21/2024 10:30 AM EDT Telemedicine Urology, [facility] [address] [place] [address] Chandler Pena MD [address] [place] [address] 11/24/2024 1:40 PM EDT Office Visit Dermatology [address] [place] [address] Sheryl Pena PA-C [address] [place] [address] [place] [address] Health Maintenance Due Date Last Done Comments [...] Additional history exists CKD PHOS USE SMARTSET 59524 02/08/2024 06/1 01/2023, 08/07/2021, 11/09/2019, Additional history exists TSH 03/25/2024 03/25/2023, 07/0 10/2022, 10/28/2022, Additional history exists Influenza Vaccine (FLU shot) (#1) 2024 06/20/2022, 06/20/2022, 06/29/2021, Additional history exists CKD HGB USE SMARTSET 87018 05/26/202405/26, 05/26/2023, 04/07/2023, Additional history exists Pneumococcal [...] Documents on File Type Date Recorded Patient Rod Hanger Expl anation Advance Directives and Living Will 08/10/2021 ADVANCE DIRECTIVE / LIVING WILL LIVING WILL Healthcare Agents on File Name Relationship Healthcare Agent Relationshi p Communication Josselyn [facility] Power of Attor nathalie Care Teams Truck Dispatcher Relationship Specialty Start Date End Date Verónica Benavides MD [address] [place] [address] [place] [address] PCP - General Family Medicine 09/16/14 documented as of this encounter
--- OUTSIDE RECORDS SUMMARY | 2024-04-24 11:12 | External Medical Summary | Summary of Care ---
Author Name Unknown Organization [facility] Address [address] [place] [address] Phone [phone] Care Team Providers Care Books Binder Name Role Phone Verónica Benavides MD Primary Care Provide r Reason for Visit * Reason Onset Date Comments [facility]: Maintenance 03/19/2024 Encounter Details Date Type Department Care Team (Late st Contact Info) Description 03/19/2024 Telephone [facility], [facility] [address] [place] [address] [facility], Nurse [facility] [address] [place] [address] [facility]: Maintenance Allergies Active Allergy Reactions Criticality Noted Date Comments Adhesive Tape Medium 01/30/2022 Ibuprofen Hives 01/13/2012 Aspirin Hives,Rash 09/15/2000 Sulfamethoxazole-Trimeth oprim Nausea/vomiting,Othe r (Please comment) 10/27/2020 Dizziness Ciprofloxacin Hcl 06/16/2019 Hoarse, dizzy,disoriented Morphine 09/21/2021 Blacked out Penicillins Hives,Rash 09/15/2000 Prednisone 12/30/2017 Weakness/memory changes/blurred vision documented as of this encounter (statuses as of 03/19/2024) Medications Medication Sig Dispensed Refills Start Date [...] mouth in the morning. 08/08/2021 Active Nystatin 547753 UNIT/GM External Powder (Nystop)Indications: Lydia rash of [...] XL)Indications:Non-i schemic cardiomyopathy (HCC),Coronary artery disease involving [place] coronary artery of [place] heart without angina pectoris,HTN, goal below 140/90 [...] Tablet 3 07/08/2023 Active OneTouch Delica Plus [id number] :Type 2 diabetes mellitus with hemoglobin A1c goal of less than 8.0% ([facility]) Test up to two times daily or as directed by [facility] pharmacist 200 Each 3 07/11/2023 Active [...] If no improvement on day 3, contact [facility] for possible home visit 1 [...] EVERY MORNING 45 Tablet 3 03/03/2024 Active documented as of this encounter (statuses as of 03/19/2024) Active Problems Problem Noted Date Diagnosed Date [...] Continue synthroid Coronary artery disease invo lving [place] coronary artery of [place] heart without angina pectoris 07/03/2012 Overview: 60% [...] as of this encounter (statuses as of 03/19/2024) Resolved Problems Problem Noted Date Diagnosed Date [...] as of this encounter (statuses as of 03/19/2024) Immunizations Name Administration Dates Next Due COVID-19 mRNA, LNP-s, No Pre serve, 2-Dose Series (Cylex) 08/29/2021,10/23/2020,10/02/2020 COVID-19, MRNA-LNP, 23-24, P F, 30 MCG/0.3 mL, 12 YRS AND ABOVE, IM ([employer]) 08/04/2023 Covid-19, Mrna, Lnp-s, Pf, B ivalent, [...] Telephone Encounter - Beth Bailon RN - 03/19/2024 12:43 PM EDT Daughter, Josselyn calling back in to check on abnormal urinalysis results she received on my G. Advised that urine culture is pending and someone will follow up with her once those results are reviewed by provider. Josselyn verbalizes understanding. * Telephone Encounter - Nanci Leiva RN - 03/19/2024 8:46 AM EDT Images from the original note were not included. [facility] Telephonic Nurse Follow-Up Call [facility] Subprogram: [facility] Home Follow Up Call Type: 24 hour follow up Acute issue requiring follow-up call: Other: Urinary symptoms, follow up on lab results Objective: 02/20/2024 2:00 PM 02/20/2024 1:59 PM 01/08/2024 4:45 PM 12/19/2023 11:03 AM 11/11/2023 2:14 PM VITALS ACROSS ENCOUNTERS BP 136/68 136/68 104/76 118/62 122/64 Pulse 80 80 72 64 62 Weight 105.1 kg 105.1 kg 108 kg 108 kg BMI 43.8 kg/m2 43.8 kg/m2 44.97 kg/m2 44.97 kg/m2 Culture/Sensitivity pending Remote Patient Monitoring: NONE Oxygen Needs: NO supplemental oxygen needs identified DME Needs: NO DME needs identified Medications: No medication or dose adjustments made during acute episode Subjective: Condition Status: No change in symptoms Current Concerns: No change in symptoms. Pending urine culture results Weekend call set Disposition: Weekend call scheduled Future Visits Scheduled: Future Appointments-next 60 days Date/Time Provider Specialty Dept Phone 03/19/2024 12:00 PM Coordinator, Lise Lepe [facility] [phone] 03/20/2024 11:30 AM Region, Nurse Lise Sosa [facility] [phone] 03/30/2024 3:40 PM Verónica Benavides MD Family Medicine [phone] 04/09/2024 2:30 PM Destiny Schultz RN [facility] [phone] 04/21/2024 10:30 AM Chandler Pena MD Urology [phone] 11/24/2024 1:40 PM (Arrive by 1:25 PM) Sheryl Pena PA-C Dermatology [phone] Nanci Leiva, RN documented in this encounter Plan of Treatment Upcoming Encounters Date Type Department Care Team (Late st Contact Info) Description 03/20/2024 11:30 AM EDT Scheduled Telephone [facility] [place], [facility] [address] [address] [facility], Nurse [place] [address] [place] [address] 03/30/2024 3:40 PM EDT Telemedicine Family Medicine [address] [place] [phone] Verónica Benavides MD [address] [place] [address] [place] [address] 04/09/2024 2:30 PM EDT Home Visit [facility], [facility] [address] [place] [address] Destiny Schultz, RN [address] [place] [address] 04/21/2024 10:30 AM EDT Telemedicine Urology, [facility] [address] [place] [address] Chandler Pena MD [address] [facility] [place] [address] 11/24/2024 1:40 PM EDT Office Visit Dermatology [address] [place] [address] Sheryl Pena PA-C [address] [place] [address] [place] [address] Health Maintenance Due Date Last Done Comments Zoster Vaccines (1 of 2) 1985 DXA Scan 04/02/2020 04/02/2017, 12/24, 11/05/2007 Depression Screening 05/24/2020 05/24/2019 Diabetic Foot Exam 11/08/2020 11/09/2019, 0 09/01/2018, 08/28/2017, Additional history exists HbA1c 08/13/2023 02/11/2023, 10/23, 01/11/2022, Additional history exists DTaP,Tdap,and Td Vaccines (2 - Td or Tdap) 11/16/2023 11/15/2013, 03/29/2008, 03/29/2008 COVID-19 Vaccine ( - 2022- season) 2023 08/04/2023, 08/02/2022, 08/02/2022, Additional history exists Diabetic Eye Exam 12/22/2023 12/21/2022, , 03/10/2021, Additional history exists Albumin/Creatinine Ratio 02/08/2024 023, 01/18/2022, 12/23/2017, Additional history exists CKD PHOS USE SMARTSET 91854 02/08/2024 06/01/2023, 08/07/2021, 11/09/2019, Additional history exists TSH 03/25/2024 03/25/2023, 07/0 10/2022, 10/28/2022, Additional history exists Influenza Vaccine (FLU shot) (#1) 2024 06/20/2022, 06/20/2022, 06/29/2021, Additional history exists CKD HGB USE SMARTSET 92654 05/26/202405/26, 05/26/2023, 04/07/2023, Additional history exists Pneumococcal [...] on File Type Date 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
--- OUTSIDE RECORDS SUMMARY | 2024-04-24 11:13 | External Medical Summary | Summary of Care ---
Author Name Unknown Organization [facility] Address [address] [place] [address] Phone [phone] Care Team Providers Care Director [employer]gen Storage Engineering Name Role Phone Verónica Benavides MD Primary Care Provide r Reason for Visit * Reason Onset Date Comments Order Request 03/01/2024 Lift Bed order Encounter Details Date Type Department Care Team (Late st Contact Info) Description 03/01/2024 Telephone Family [address] [phone] Verónica Benavides MD [address] [place] [address] [place] [address] Order Request (Lift Bed order ) Allergies Active Allergy Reactions Criticality Noted Date Comments Adhesive Tape Medium 01/30/2022 Ibuprofen Hives 01/13/2012 Aspirin Hives,Rash 09/15/2000 Sulfamethoxazole-Trimeth oprim Nausea/vomiting,Othe r (Please comment) 10/27/2020 Dizziness Ciprofloxacin Hcl 06/16/2019 Hoarse, dizzy,disoriented Morphine 09/21/2021 Blacked out Penicillins Hives,Rash 09/15/2000 Prednisone 12/30/2017 Weakness/memory changes/blurred vision documented as of this encounter (statuses as of 03/09/2024) Medications Medication Sig Dispensed Refills Start Date [...] mouth in the morning. 08/08/2021 Active Nystatin 025906 UNIT/GM External Powder (Nystop)Indications: Lydia rash of [...] XL)Indications:Non-i schemic cardiomyopathy (HCC),Coronary artery disease involving [place] coronary artery of [place] heart without angina pectoris,HTN, goal below 140/90 [...] goal of less than 8.0% ([facility]) TEST UP TO FOUR TIMES [...] Tablet 3 07/08/2023 Active OneTouch Delica Plus [id number] :Type 2 diabetes mellitus with hemoglobin A1c goal of less than 8.0% ([facility]) Test up to two times daily or as directed by [facility] pharmacist 200 Each 3 [...] If no improvement on day 3, contact [facility] for possible home visit 1 [...] directed by clinician. 5 Tablet 02/11/2024 Active Cefdinir 300 MG Oral Capsule (Omnicef) Take 1 Capsule by mouth in the morning and 1 Capsule before bedtime. Do all this for 3 days. 6 Capsule 03/01/2024 documented as of this encounter (statuses as of 03/09/2024) Active Problems Problem Noted Date Diagnosed Date [...] 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 Last Assessment & Plan: [facility] Triage Call: Reviewed last C&S [...] Continue synthroid Coronary artery disease invo lving [place] coronary artery of [place] heart without angina pectoris 07/03/2012 Overview: 60% [...] as of this encounter (statuses as of 03/09/2024) Resolved Problems Problem Noted Date Diagnosed Date [...] as of this encounter (statuses as of 03/09/2024) Immunizations Name Administration Dates Next Due COVID-19 mRNA, LNP-s, No Pre serve, 2-Dose Series ([employer]) 08/29/2021,10/23/2020,10/02/2020 COVID-19, MRNA-LNP, 23-24, P F, 30 MCG/0.3 mL, 12 YRS AND ABOVE, IM ([employer]) 08/04/2023 Covid-19, Mrna, Lnp-s, Pf, B [...] Miscellaneous Notes * Telephone Encounter - Sarah Fernandez OSA - 03/09/2024 2:27 PM EDT Caller requesting the following information to be faxed: Name/Company of caller: [employer] Information requested to be faxed: Referral for PT, Script for DME for lift bed, and letter of Medical Necessity this should state pt's name, , her dx and why the dx requires the lift bed. Fax number: [phone] Attention to Name[facility] Any additional information?: Mimi states that [...] pended,if agreeble. Then we will fax to [facility] Pt has an appt with you in March If it comes back and we have to submit it thru [facility] for ANGI AGUIRRE, pt will need to wait until her appt, so we have clinic notes to send * Telephone Encounter - Nirmala Montero OSA - 03/01/2024 4:48 PM EDT Mimi from [facility] states patient is asking for a lift bed, a bed that swivels so she doesn't have to lift her legs and helps elevate her out of the bed. Requesting a letter of medical necessity and order Fax # documented in this encounter Plan of Treatment Upcoming Encounters Date Type Department Care Team (Late st Contact Info) Description 03/30/2024 3:40 PM EDT Office Visit Family [address] [place] [address] Veróniac Benavides MD [address] [place] [address] [place] [address] 04/09/2024 2:30 PM EDT Home Visit [facility] [address] [address] Destiny Schultz, RN [address] [place] [address] 04/21/2024 10:30 AM EDT Telemedicine Urology, [facility] [address] [facility] [place] [address] Chandler Pena MD [address] [place] [address] 11/24/2024 1:40 PM EDT Office Visit Dermatology [address] [place] [address] Sheryl Pena PA-C [address] [place] [address] [place] [address] Health Maintenance Due Date Last Done Comments [...] Additional history exists CKD PHOS USE SMARTSET 62841 02/08/202401/23, 08/07/2021, 11/09/2019, Additional history exists TSH 03/25/2024 03/25/2023, 07/0 10/2022, 10/28/2022, Additional history exists Influenza Vaccine (FLU shot) (#1) 2024 06/20/2022, 06/20/2022, 06/29/2021, Additional history exists CKD HGB USE SMARTSET 74234 05/26/202405/26, 05/26/2023, 04/07/2023, Additional history exists Pneumococcal [...] Documents on File Type Date Recorded 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
--- OUTSIDE RECORDS SUMMARY | 2024-04-24 11:13 | External Medical Summary | Summary of Care ---
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 * Evaluate & Treat - Unlimited Visits (Within 3 days (urgent)) - Authorized Specialty Diagnoses / Procedures Referred By Chaz vaz Referred To Contact Dermatology Diagnoses Skin lesion Libia Sanchez MD [address] [place] [phone] Referral ID Status Reason Start Date Expiration Date Visits Requested Visits Authorized [id number] Authorized Specialty Services Required 01/12/[phone] Encounter Details Date Type Department Care Team (Late st Contact Info) Description 03/04/2024 3:10 PM EDT Office Visit Dermatology, Jhon Zayas [address] [place] [address] Berna Mathis PA-C [address] [place] [address] Skin neoplasm* Allergies Active Allergy Reactions Criticality Noted Date Comments Adhesive Tape Medium 01/30/2022 Ibuprofen Hives 01/13/2012 Aspirin Hives,Rash 09/15/2000 Sulfamethoxazole-Trimeth oprim Nausea/vomiting,Othe r (Please comment) 10/27/2020 Dizziness Ciprofloxacin Hcl 06/16/2019 Hoarse, dizzy,disoriented Morphine 09/21/2021 Blacked out Penicillins Hives,Rash 09/15/2000 Prednisone 12/30/2017 Weakness/memory changes/blurred vision documented as of this encounter (statuses as of 03/08/2024) Medications Medication Sig Dispensed Refills Start Date [...] mouth in the morning. 08/08/2021 Active Nystatin 285488 UNIT/GM External Powder (Nystop)Indications: Lydia rash of [...] XL)Indications:Non-i schemic cardiomyopathy (HCC),Coronary artery disease involving [place] [...] Tablet 3 07/08/2023 Active OneTouch Delica Plus [id number] :Type 2 diabetes mellitus with hemoglobin A1c goal of less than 8.0% ([facility]) Test up to two times daily or as directed by [facility] pharmacist 200 Each 3 07/11/2023 [...] If no improvement on day 3, contact [facility] for possible home visit 1 Each [...] EVERY MORNING 45 Tablet 3 03/03/2024 Active Cefdinir 300 MG Oral Capsule (Omnicef) Take 1 Capsule by mouth in the morning and 1 Capsule before bedtime. Do all this for 3 days. 6 Capsule 03/01/2024 4 documented as of this encounter (statuses as of 03/08/2024) Active Problems Problem Noted Date Diagnosed Date [...] 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 Last Assessment & Plan: [facility] Triage Call: Reviewed last C&S - [...] as of this encounter (statuses as of 03/08/2024) Resolved Problems Problem Noted Date Diagnosed Date [...] as of this encounter (statuses as of 03/08/2024) Immunizations Name Administration Dates Next Due COVID-19 mRNA, LNP-s, No Pre serve, 2-Dose Series (Solexant) 08/29/2021,10/23/2020,10/02/2020 COVID-19, MRNA-LNP, 23-24, P F, 30 MCG/0.3 mL, 12 YRS AND ABOVE, IM ([facility]) 08/04/2023 Covid-19, Mrna, Lnp-s, Pf, B ivalent, 30 Mcg, IM, 12 yrs and above (Solexant) 08/02/2022 Influenza, Whole Virus 08/07/2000 Pneumococcal Conjugate [...] as of this encounter Progress Notes * Paola Bowling MD - 03/08/2024 12:58 PM EDT I have seen and examined the patient via teledermatology review of chart note and photos with Berna Mathis PA-C. I have reviewed and agree with the assessment and plan. 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 Present for years. Per daughters they saw Sheryl Pena in past and told to use HCT 1% on it. Getting bigger. Also tried vaseline. No relief. No other concerns. REVIEW OF SYSTEMS: See HPI- all other findings negative Constitutional: (-) fever, chills, sweats, weight loss Cardiovascular: (-) lower extremity edema Skin: (-) no rash or new or changing moles or skin lesions Past Medical History: Diagnosis Date ACEI/ARB contraindicated Calculus of kidney Diverticulitis of colon DM type 2, goal A1c below 7 Diabetes Type II, Controlled Esophageal reflux Impaired glucose tolerance Obesity, BMI not known Patien t Active Problem List Diagnosis GENERAL OSTEOARTHROSIS Hypothyroidism DYSLIPIDEMIA, GOAL LDL BELOW 100 Exertional dyspnea Aspirin allergy LBBB (left bundle branch block) First degree atrioventricular block Coronary artery disease involving [place] coronary artery of [place] heart without angina pectoris ACEI/ARB contraindicated Type 2 diabetes mellitus with hemoglobin A1c goal of less than 8.0% (HCC) Non-ischemic cardiomyopathy (HCC) Heart failure, systolic, due to idiopathic cardiomyopathy ([facility]) Aortic valve stenosis 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, without long-term current use of insulin ([facility]) Lymphedema of both lower extremities Benign paroxysmal vertigo of both ears Gastroesophageal reflux disease without esophagitis Type 2 diabetes mellitus 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 History of recurrent UTI (urinary tract infection) Trochanteric bursitis of right hip Ventral hernia without obstruction or gangrene Impaired mobility and ADLs Bilateral impacted cerumen Constipation Acute cystitis without hematuria Transient confusion Postmenopausal atrophic vaginitis Recurrent UTI (urinary tract infection) SOCIAL HISTORY: Social History Tobacco Use Smoking status: Never Smokeless tobacco: Never Substance Use Topics Alcohol use: No Vaping/E-Cigarette Use Vaping/E-Cigarette Use Never User Vaping/E-Cigarette Substances Vaping/E-Cigarette Devices MEDICA TIONS: Current Outpatient Medications Medication Sig Dispense Refill [...] Tablet by mouth in the morning. Nystatin 287304 UNIT/GM External Powder (Nystop) Apply topically to [...] morning. 90 Tablet 3 OneTouch Delica Plus [id number] Test up to two times daily or as directed by [facility] pharmacist 200 Each 3 Estrogens Conjugated 0.625 [...] If no improvement on day 3, contact [facility] for possible home visit 1 Each [...] only when directed by clinician. 5 Tablet0 Cefdinir 300 MG Oral Capsule (Omnicef) Take 1 Capsule by mouth in the morning and 1 Capsule before bedtime. Do all this for 3 days. 6 Capsule 0 Spironolactone 25 MG Oral Tablet (Aldactone) TAKE 1/2 TABLET BY MOUTH EVERY MORNING 45 Tablet 3 No current facility-administered medications for this visit. ALLERG IES: Adhesive tape, Advil [ibuprofen], Aspirin, Bactrim [sulfamethoxazole- trimethoprim], Ciprofloxacin hcl, Morphine, Penicillins, and Prednisone OBJECTIVE: GEN: Healthy, alert, no distress, appears oriented, pleasant, and cooperative. PSYCH: Appropriate mood and affect, alert SKIN: Detailed exam of face was completed and are within normal limits with the following exceptions: 1. 1.5 cm pink scaly plaque on R cheek ASSESS MENT/PLAN: 1. Favor HAK vs SCCIS vs SCC -Discussed concern for potential malignancy and recommendation of biopsy. Patient agreeable. -Biopsy of the lesion noted above to establish and confirm diagnosis. Biopsy by tangential shave biopsy was recommended which the patient was agreeable to. The procedure, risks, benefits, indications, alternatives, and complications were discussed with the patient and informed consent was obtained.Specifically, the expectation of a permanent scar and risk of possible infection were explained to the patient and understood. Time out called. Patient identified, procedure verified, site identifiedand verified. Patient and staff present in agreement. Area prepped with alcohol and anesthetized with 2.5 mL of 0.5% lidocaine with epinephrine. Biopsy via horizontal technique was performed. Hemostasis was obtained with aluminum chloride. Petrolatum and bandage were applied. The patient tolerated the procedure well without complications and with minimal blood loss. Patient instructed in routine post-op care. Specimen(s) sent to pathology. We will call with biopsy results and arrange appropriate follow-up care as indicated. -Discussed Mohs procedure if NMSC. Daughters report they would not want to pursue that course of treatment due to her age and health. Discussed Efudex and they would be agreeable. Discussed Efudex indetail. Recommend BID x 5 weeks if NMSC. Side effects discussed. Patient daughter today. Follow-up: pending results Photos taken 1-5, patient consented to photos. Contact patient via cell phone (Datam) Ok to leave results on message: Yes Patient Phone Numbers Applicable photos (if any) and chart reviewed by Dr. Paola Bowling The patient was encouraged to contact me with any further questions or concerns. Berna Mathis PA-C 03/04/2024 2:49 PM Ref: LIBIA SANCHEZ[[id number]] [address] 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, scaly and itchy documented in this encounter Plan of Treatment Upcoming Encounters Date Type Department Care Team (Late st Contact Info) Description 03/30/2024 3:40 PM EDT Office Visit Family [address] [phone] Verónica Benavides MD [address] [place] [address] [place] [address] 04/09/2024 2:30 PM EDT Home Visit [facility] [address] [place] [address] Destiny Schultz, RN [address] [place] [address] 04/21/2024 10:30 AM EDT Telemedicine Urology, [facility] [address] [place] [address] Chandler Pena MD [address] [place] [address] 11/24/2024 1:40 PM EDT Office Visit Dermatology [address] [place] [address] Sheryl Pena PA-C [address] [place] [address] [place] [address] Health Maintenance Due Date Last Done Comments [...] Additional history exists CKD PHOS USE SMARTSET 67066 02/08/202401/23, 08/07/2021, 11/09/2019, Additional history exists TSH 03/25/2024 03/25/2023, 07/0 10/2022, 10/28/2022, Additional history exists Influenza Vaccine (FLU shot) (#1) 2024 06/20/2022, 06/20/2022, 06/29/2021, Additional history exists CKD HGB USE SMARTSET 27087 05/26/202405/26, 05/26/2023, 04/07/2023, Additional history exists Pneumococcal [...] Procedure Name Priority Date/Time Associated Diagnosis Comments DERM EXAM - DERM (IMAGES ONLY, NO REPORT) Routine 03/04/2024 3:15 PM EDT Skin neoplasm SURGICAL PATHOLOGY Routine 03/04/2024 3: 01 PM EDT Skin neoplasm documented in this encounter Results * DERM EXAM - DERM (IMAGES ONLY, NO REPORT) (03/04/2024 3:15 PM EDT) Narrative Scheduling, Silent - 03/04/2024 3:15 PM EDT This is an imaging study not interpreted or resulted by a [facility] or [facility] contracted radiologist. Berna Mathis PA-C RADIOLO GY (RAD GENERAL) * SURGICAL PATHOLOGY (03/04/2024 3:01 PM EDT) Final Diagnosis A. Skin, R cheek, shave: Squamous cell carcinoma in situ, papillated Thayer type 03/05/2024 4:41 PM EDT [facility] Clinical History See Order Comments 03/05/2024 4:41 PM EDT [facility] Order Comments 1.5 cm pink scaly plaque on R cheek. Pre-Op Dx: SCCIS vs AK. Shave 03/05/2024 4:41 PM EDT LABORATORY [facility] Gross Description A. Skin. Received in formalin with a container labeled with "Regla Karin FabianCastano", "[id number]", "1935" and " right cheek". Received is a 1.5 x 1.3 cm skin shave. The skin surface is barrett to brown, firm, raised throughout, slightly keratotic. The underlying tissue is inked. The specimen is serially sectioned into 5 and submitted in cassettes A1-A2. Gross By: MF 03/05/2024 4:41 PM EDT LABORATORY [facility] [place] Sign Out Location Pathologist sign out performed at [facility] ([facility] [address] [place] [id number]. 03/05/2024 4:41 PM EDT LABORATORY [facility] [place] Photographic images and diagrams represent de dios findings in this case; they are not intended to replace a complete review of the final diagnostic report. The following statement applies to Flow Cytometry, Histology, In situ Hybridization Assays and Molecular Genetics. This test was developed and performed at [facility] and its performance characteristics determined by [facility]. It has not been cleared or approved by the U.S. Food and Drug Administration. The FDA has determined that such clearance or approval is not necessary. This test is used for clinical purposes. It should not be regarded as investigational or for research. Special stains, including histochemical stains, and studies using immunologic and MO methodology (where applicable) are performed with appropriate positive and negative control reactions. 03/05/2024 4:41 PM EDT LABORATORY [facility] [place] Tissue Skin structure / Unknown 03/04/2024 3:01 PM EDT 03/04/2024 3:01 PM EDT Comment:1.5 cm pink scaly pl aque on R cheek. Pre-Op Dx: SCCIS vs AK. 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
--- OUTSIDE RECORDS SUMMARY | 2024-04-24 11:13 | External Medical Summary | Summary of Care ---
Author Name Unknown Organization [facility] Address [address] [place] [address] Phone [phone] Care Team Providers Care Recharger Name Role Phone Verónica Benavides MD Primary Care Provide r Reason for Visit * Reason Onset Date Comments [facility]: Maintenance 03/19/2024 Encounter Details Date Type Department Care Team (Late st Contact Info) Description 03/19/2024 Telephone [facility], [facility] [address] [place] [address] [facility], Nurse [facility] [address] [place] [address] [facility]: Maintenance Allergies Active Allergy [...] mouth in the morning. 08/08/2021 Active Nystatin 453004 UNIT/GM External Powder (Nystop)Indications: Lydia rash of [...] Tablet 3 07/08/2023 Active OneTouch Delica Plus Hudzkk89DHrlqwxbghse :Type 2 diabetes mellitus with hemoglobin A1c goal of less than 8.0% ([facility]) Test up to two times daily or as directed by [facility] pharmacist 200 Each 3 07/11/2023 [...] If no improvement on day 3, contact [facility] for possible home visit 1 Each [...] 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 Last Assessment & Plan: [facility] Triage Call: Reviewed last C&S - [...] mRNA, LNP-s, No Pre serve, 2-Dose Series ([employer]) 08/29/2021,10/23/2020,10/02/2020 COVID-19, MRNA-LNP, 23-24, P F, 30 MCG/0.3 mL, 12 YRS AND ABOVE, IM (Gigit-Comirnat?) 08/04/2023 Covid-19, Mrna, Lnp-s, Pf, B ivalent, [...] [facility] at Home Telephonic Nurse Follow-Up Call [facility] Subprogram: Primary Care at Home Follow [...] PM Coordinator, Lise Lepe [facility] [phone] 03/20/2024 11:[address] [facility], Nurse [facility] [phone] 03/30/2024 3:40 PM Verónica Benavides MD Family Medicine [phone] 04/09/2024 2:30 PM Destiny Schultz, RN [facility] [phone] 04/21/2024 10:30 AM Chandler Pena MD Urology [phone] 11/24/2024 1:40 PM (Arrive by 1:25 PM) Sheryl Pena PA-Antonio Dermatology [phone] Nanci Leiva, RN documented in this encounter Plan of Treatment Upcoming Encounters Date Type Department Care Team (Late st Contact Info) Description 03/19/2024 12:00 PM EDT Scheduled Telephone [facility], [address] [place] [address] Coordinator, [address] [place] [address] 03/20/2024 11:30 AM EDT Scheduled Telephone [facility], [address] [place] [address] [facility], Nurse [address] [place] [address] 03/30/2024 3:40 PM EDT Telemedicine Family [address] [place] [phone] Verónica Benavides MD [address] [place] [address] [place] [address] 04/09/2024 2:30 PM EDT Home Visit [facility], [place] [address] [address] [place] [address] Destiny Schultz RN [address] [place] [address] 04/21/2024 10:30 AM EDT Telemedicine Urology, [facility] [address] [place] [address] Chandler Pena MD [address] [facility] [place] [address] 11/24/2024 1:40 PM EDT Office Visit Dermatology [address] [place] [address] Sheryl Pena PA-C [address] [place] [address] [place] [address] Health Maintenance Due Date Last Done Comments [...] Additional history exists CKD PHOS USE SMARTSET 51031 02/08/202401/23, 08/07/2021, 11/09/2019, Additional history exists TSH 03/25/2024 03/25/2023, 07/0 10/2022, 10/28/2022, Additional history exists Influenza Vaccine (FLU shot) (#1) 2024 06/20/2022, 06/20/2022, 06/29/2021, Additional history exists CKD HGB USE SMARTSET 59001 05/26/202405/26, 05/26/2023, 04/07/2023, Additional history exists Pneumococcal [...] Documents on File Type Date 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
--- OUTSIDE RECORDS SUMMARY | 2024-04-24 11:13 | External Medical Summary | Summary of Care ---
Author Name Unknown Organization [facility] Address [address] [place] [address] Phone [phone] Care Team Providers Care Rod Mill Operator Name Role Phone Verónica Benavides MD Primary Care Provide r Reason for Visit * Reason Onset Date Comments [facility]: Maintenance 03/19/2024 Encounter Details Date Type Department Care Team (Late st Contact Info) Description 03/19/2024 12:00 PM EDT Scheduled Telephone [facility], [facility] [address] [facility] [place] [address] Coordinator, [facility] [address] [facility] [place] [address] Allergies Active Allergy Reactions Criticality Noted Date [...] mouth in the morning. 08/08/2021 Active Nystatin 424199 UNIT/GM External Powder (Nystop)Indications: Lydia rash of [...] XL)Indications:Non-i schemic cardiomyopathy (HCC),Coronary artery disease involving [place] coronary artery of [place] heart without angina pectoris,HTN, goal below 140/90 [...] Tablet 3 07/08/2023 Active OneTouch Delica Plus [id number] :Type 2 diabetes mellitus with hemoglobin A1c goal of less than 8.0% ([facility]) Test up to two times daily or [...] If no improvement on day 3, contact [facility] for possible home visit 1 Each 11/28/2023 [...] 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 Last Assessment & Plan: [facility] Triage Call: Reviewed last C&S - [...] Continue synthroid Coronary artery disease invo lving [place] coronary artery of [place] heart without angina pectoris 07/03/2012 Overview: 60% [...] mRNA, LNP-s, No Pre serve, 2-Dose Series ([employer]uso) 08/29/2021,10/23/2020,10/02/2020 COVID-19, MRNA-LNP, 23-24, P F, 30 MCG/0.3 mL, 12 YRS AND ABOVE, IM (Vindi-ComirnatScreen Fix Gibson) 08/04/2023 Covid-19, Mrna, Lnp-s, Pf, B ivalent, [...] 11:30 AM EDT [facility] [address] [place] [address] [facility], Nurse [facility] [address] [place] [address] 03/30/2024 3:40 PM EDT Telemedicine Family [address] [place] [phone] Verónica Benavides MD [address] [place] [address] [place] [address] 04/09/2024 2:30 PM EDT [facility] [address] [place] [address] Destiny Schultz, POPPY [address] [place] [address] 04/21/2024 10:30 AM EDT Telemedicine Urology, [facility] [address] [place] [address] Chandler Pena MD [address] [place] [address] 11/24/2024 1:40 PM EDT Office Visit Dermatology [address] [place] [address] Sheryl Pena PA-C [address] [place] [address] [place] [address] Health Maintenance Due Date Last Done Comments [...] Additional history exists CKD PHOS USE SMARTSET 16572 02/08/202401/23, 08/07/2021, 11/09/2019, Additional history exists TSH 03/25/2024 03/25/2023, 0710/2022, 10/28/2022, Additional history exists Influenza Vaccine (FLU shot) (#1) 2024 06/20/2022, 06/20/2022, 06/29/2021, Additional history exists CKD HGB USE SMARTSET 82824 05/26/202405/26, 05/26/2023, 04/07/2023, Additional history exists Pneumococcal [...] Documents on File Type Date Recorded Patient Ammonia Operator Expl anation Advance Directives and Living Will 08/10/2021 ADVANCE DIRECTIVE / LIVING WILL LIVING WILL Healthcare Agents on File Name Relationship Healthcare Agent [facility] Communication Josselyn Judd Adult Child Health Care Power of Attor nathalie Care Teams Rod Mill Operator Relationship Specialty Start Date End Date Verónica Benavides MD [address] [place] [address] [place] [address] PCP - General Family Medicine 09/16/14 documented as of this encounter
--- OUTSIDE RECORDS SUMMARY | 2024-04-24 11:13 | External Medical Summary ---
Author Name Unknown Address Unknown Organization K01:[facility] [place] - [address] [facility] [address] Laboratory Report Ordering Provider Test Date Status SARAH GAO 03/17/2024 21:14:00 Final Observation Date Value Abnormality Reference (Units ) Status Color of Urine by Auto 03/17/2024 21:14:00 Yellow Colorless, Light Yellow, Yellow, Dark Yellow Final Clarity, Urine 03/17/2024 21:14:00 Cloudy Abnormal Clear Final Glucose [Mass/volume] in Urine by Automated test strip 03/17/2024 21:14:00 Negative Negative (mg/dL) Final Bilirubin.total [Presence] in Urine by Automated test strip 03/17/2024 21:14:00 Negative Negative Final Ketones [Mass/volume] in Urine by Automated test strip 03/17/2024 21:14:00 Negative Negative (mg/dL) Final Specific gravity, Urine 03/17/2024 21:14:00 1.008 1.003-1.030 Final Hemoglobin [Presence] in Urine by Automated test strip 03/17/2024 21:14:00 Moderate Abnormal Negative Final pH, Urine 03/17/2024 21:14:00 7.5 5.0-7.5 (Units) Final Protein [Mass/volume] in Urine by Automated test strip 03/17/2024 21:14:00 30 Abnormal Negative (mg/dL) Final Urobilinogen [Mass/volume] in Urine by Automated test strip 03/17/2024 21:14:00 Normal Normal (mg/dL) Final Nitrite [Presence] in Urine by Automated test strip 03/17/2024 21:14:00 Negative Negative Final Leukocyte esterase [Presence] in Urine by Automated test strip 03/17/2024 21:14:00 Large Abnormal Negative Final RBC, Urine 03/17/2024 21:14:00 10-19 Abnormal 0-2 (/HPF) Final WBC, Urine 03/17/2024 21:14:00 50+ Abnormal 0-2 (/HPF) Final Bacteria [#/area] in Urine sediment by Microscopy high power field 03/17/2024 21:14:00 >200 Abnormal 0-25 (/HPF) Final CULTURE, URINE - [facility] 03/17/2024 21:14:00 Final Quantitative urine culture t o be performed Performing Location [facility] [place] - [facility] [address]. [facility] [address]
--- OUTSIDE RECORDS SUMMARY | 2024-04-24 11:13 | External Medical Summary | Summary of Care ---
Author Name Unknown Organization [facility] Address [address] [place] [address] Phone [phone] Care Team Providers Care Guest Services Officer Name Role Phone Verónica Benavides MD Primary Care Provide r Reason for Visit * Reason Comments Outpatient Testing Encounter Details Date Type Department Care Team (Late st Contact Info) Description 03/18/2024 9:20 AM EDT Laboratory Laboratory [address] [place] [phone] , Specimen Drop Off [address] [place] [address] Burning with urination; Cloudy urine; Foul smelling urine; Low back pain without sciatica Allergies Active Allergy Reactions Criticality Noted Date Comments Adhesive Tape Medium 01/30/2022 Ibuprofen Hives 01/13/2012 Aspirin Hives,Rash 09/15/2000 Sulfamethoxazole-Trimeth oprim Nausea/vomiting,Othe r (Please comment) 10/27/2020 Dizziness Ciprofloxacin Hcl 06/16/2019 Hoarse, dizzy,disoriented Morphine 09/21/2021 Blacked out Penicillins Hives,Rash 09/15/2000 Prednisone 12/30/2017 Weakness/memory changes/blurred vision documented as of this encounter (statuses as of 03/18/2024) Medications Medication Sig Dispensed Refills Start Date [...] mouth in the morning. 08/08/2021 Active Nystatin 793308 UNIT/GM External Powder (Nystop)Indications: Ldyia rash of groin Apply topically to affected [...] XL)Indications:Non-i schemic cardiomyopathy (HCC),Coronary artery disease involving yocha dehe [...] Tablet 3 07/08/2023 Active OneTouch Delica Plus [id number] :Type 2 diabetes mellitus with hemoglobin A1c [...] as of this encounter (statuses as of 03/18/2024) Active Problems Problem Noted Date Diagnosed Date [...] as of this encounter (statuses as of 03/18/2024) Resolved Problems Problem Noted Date Diagnosed Date [...] as of this encounter (statuses as of 03/18/2024) Immunizations Name Administration Dates Next Due COVID-19 mRNA, LNP-s, No Pre serve, 2-Dose Series (ReDent Nova) 08/29/2021,10/23/2020,10/02/2020 COVID-19, MRNA-LNP, 23-24, P F, 30 MCG/0.3 mL, 12 YRS AND ABOVE, IM (Sazneo-ComirnatPublicVine) 08/04/2023 Covid-19, Mrna, Lnp-s, Pf, B ivalent, [...] PM EDT Scheduled Telephone [facility], [place] [address] [place] [address] Coordinator, [place] [address] [address] [place] [address] 03/20/2024 11:30 AM EDT Scheduled Telephone [facility], [place] [address] [place] [address] Region, Nurse [place] [address] [address] [place] [address] 03/30/2024 3:40 PM EDT Telemedicine Family Medicine [address] [place] [phone] Verónica Benavides MD [address] [place] [address] [place] [address] 04/09/2024 2:30 PM EDT Home Visit [facility], [facility] [address] [place] [address] Destiny Schultz, POPPY [address] [place] [address] 04/21/2024 10:30 AM EDT Telemedicine Urology, [facility] [address] [place] [address] Chandler Pena MD [address] [place] [address] 11/24/2024 1:40 PM EDT Office Visit Dermatology [address] [place] [address] Sheryl Pena PA-C [address] [place] [address] [place] [address] Pending Results Name Type Priority Associated Diagnoses Date /Time URINALYSIS, REFLEX TO CULTURE (NOT FOR NEUTROPENIC PATIENTS) Lab Routine Burning with urination Cloudy urine Foul smelling urine Low back pain without sciatica 03/17/2024 9:14 PM EDT URINALYSIS, REFLEX TO CULTURE (CUP ONLY) Lab Routine Burning with urination Cloudy urine Foul smelling urine Low back pain without sciatica 03/18/2024 9:14 AM EDT URINALYSIS, REFLEX TO CULTURE Lab Routine Burning with urination Cloudy urine Foul smelling urine Low back pain without sciatica 03/17/2024 9:14 PM EDT Health Maintenance Due Date Last Done [...] Additional history exists CKD PHOS USE SMARTSET 68558 02/08/202401/23, 08/07/2021, 11/09/2019, Additional history exists TSH 03/25/2024 03/25/2023, 07/10/2022, 10/28/2022, Additional history exists Influenza Vaccine (FLU shot) (#1) 2024 06/20/2022, 06/20/2022, 06/29/2021, Additional history exists CKD HGB USE SMARTSET 02712 05/26/202405/26, 05/26/2023, 04/07/2023, Additional history exists Pneumococcal [...] as of this encounter Visit Diagnoses Diagnosis Burning with urination Dysuria Cloudy urine Other nonspecific finding on examination of urine Foul smelling urine Other nonspecific finding on examination of urine Low back pain without sciatica Lumbago documented in this encounter Advance Directives Documents on File Type Date Recorded 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
--- OUTSIDE RECORDS SUMMARY | 2024-04-24 11:13 | External Medical Summary | Summary of Care ---
Author Name Unknown Organization [facility] Address [address] [place] [address] Phone [phone] Care Team Providers Care Cat Skinner Name Role Phone Verónica Benavides MD Primary Care Provide r Reason for Visit * Reason Onset Date Comments [facility]: Acute 03/17/2024 Encounter Details Date Type Department Care Team (Late st Contact Info) Description 03/17/2024 Telephone [facility], [facility] [address] [place] [address] [facility], Nurse [facility] [address] [place] [address] [facility]: Acute Allergies Active Allergy Reactions Criticality Noted Date Comments Adhesive Tape Medium 01/30/2022 Ibuprofen Hives 01/13/2012 Aspirin Hives,Rash 09/15/2000 Sulfamethoxazole-Trimeth oprim Nausea/vomiting,Othe r (Please comment) 10/27/2020 Dizziness Ciprofloxacin Hcl 06/16/2019 Hoarse, dizzy,disoriented Morphine 09/21/2021 Blacked out Penicillins Hives,Rash 09/15/2000 Prednisone 12/30/2017 Weakness/memory changes/blurred vision documented as of this encounter (statuses as of 03/17/2024) Medications Medication Sig Dispensed Refills Start Date [...] mouth in the morning. 08/08/2021 Active Nystatin 607865 UNIT/GM External Powder (Nystop)Indications: Lydia rash of [...] XL)Indications:Non-i schemic cardiomyopathy (HCC),Coronary artery disease involving [place] coronary artery of [place] heart without angina pectoris,HTN, goal below 140/90 [...] long-term current use of insulin ([facility]),Type 2 diabetes mellitus with hemoglobin A1c goal [...] Tablet 3 07/08/2023 Active OneTouch Delica Plus [id number] :Type 2 diabetes mellitus with hemoglobin A1c goal of less than 8.0% ([facility]) Test up to two times daily or as directed by [facility] pharmacist 200 Each 3 07/11/2023 Active Estrogens [...] If no improvement on day 3, contact [facility] for possible home visit 1 [...] as of this encounter (statuses as of 03/17/2024) Active Problems Problem Noted Date Diagnosed Date [...] 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 Last Assessment & Plan: [facility] Triage Call: Reviewed last C&S [...] Continue synthroid Coronary artery disease invo lving kakt[place] coronary artery of [place] heart without angina pectoris 07/03/2012 Overview: 60% [...] as of this encounter (statuses as of 03/17/2024) Resolved Problems Problem Noted Date Diagnosed Date [...] as of this encounter (statuses as of 03/17/2024) Immunizations Name Administration Dates Next Due COVID-19 mRNA, LNP-s, No Pre serve, 2-Dose Series (Groupon) 08/29/2021,10/23/2020,10/02/2020 COVID-19, MRNA-LNP, 23-24, P F, 30 MCG/0.3 mL, 12 YRS AND ABOVE, IM ([employer]on Biosciences-ComirnatUSDS) 08/04/2023 Covid-19, Mrna, Lnp-s, Pf, B ivalent, [...] Telephone Encounter - Nanci Leiva RN - 03/17/2024 2:41 PM EDT [facility] sap basis Acute Call Date: 03/17/2024 Time: 2:41 PM Name: Regla Castano : 1935 Caller: Josselyn, arianna Relationship to Chief Complaint Patient presents with [facility]: Acute HPI: Regla Castano is a 88 year old female who is calling [facility] Intake to report she believesher mother has another UTI, gets them about 1x/month.. Patient reports 2 day history of "doesn't feel right when I urinate", has burning, pressure. Daughter found cloudy, concentrated, foul smelling urine. Occasional low back pain reporting. Had recent facial skin tag removed, it got infected. She was on Doxy and Keflex for that . Now finished Daughter asking for a urine order to be placed ROS: Patient Active Problem List Diagnosis GENERAL OSTEOARTHROSIS Hypothyroidism DYSLIPIDEMIA, GOAL LDL BELOW 100 Exertional dyspnea Aspirin allergy LBBB (left bundle branch block) First degree atrioventricular block Coronary artery disease involving k[place] coronary artery of [place] heart without angina pectoris ACEI/ARB contraindicated Type 2 diabetes mellitus with hemoglobin A1c goal of less than 8.0% (HCC) Non-ischemic cardiomyopathy (HCC) Heart failure, systolic, due to idiopathic cardiomyopathy (HCC) Aortic valve stenosis 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, without long-term current use of insulin ([facility]) Lymphedema of both lower extremities Benign paroxysmal vertigo of both ears Gastroesophageal reflux disease without esophagitis Type 2 diabetes mellitus with mild nonproliferative diabetic retinopathy without macular edema, right eye ([facility]) 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 History of recurrent UTI (urinary tract infection) Trochanteric bursitis of right hip Ventral hernia without obstruction or gangrene Impaired mobility and ADLs Bilateral impacted cerumen Constipation Acute cystitis without hematuria Transient confusion Postmenopausal atrophic vaginitis Recurrent UTI (urinary tract infection) Nursing Assessment: Patient's chief complaint for this call: Urinary symptoms Pain Has pain Pain level: 3-4 at times Location: low back Quality of Pain: not sure Does the pain radiate: Unknown Baseline Assessment Able to performing ADLs at baseline (walking, daily tasks, etc.): Yes Chief Complaint is related to a chronic condition: No Patient prescribed oxygen? No Patient has been ordered DME equipment (assistive devices, respiratory equipment, etc.): No Medication Reconciliation: Received flu shot this season: Unknown Taking medication as ordered: Yes Medications ordered/taking to treat reason for call: No Heart failure symptoms: No COPD exacerbation symptoms: No Reinforcement Education: Push fluids Good Personal Hygiene, wipe front to back, clean well after BM Empty bladder frequently, do not hold in urine Change any wet underwear/pants/bedding as soon as possible Daughter will take urine sample to hospital Followup calls set TT to care team provider Treatment/Plan: Level of call: Acute Appointment scheduled for same day: No Provider Name: GEOVANNY Leiva RN, BSN [facility] Intake Triage Coordinator [phone] Call back instructions provided to patient. documented in this encounter Plan of Treatment Upcoming Encounters Date Type Department Care Team (Late st Contact Info) Description 03/19/2024 12:00 PM EDT Scheduled Telephone [facility] [place], [facility] 132 [facility] [place] [address] Coordinator, [facility] 132 [facility] [place] [address] 03/20/2024 11:30 AM EDT Scheduled Telephone [facility], [address] [place] [address] [facility], Nurse [facility] 132 [facility] [place] [address] 03/30/2024 3:40 PM EDT Telemedicine Family Medicine [address] [place] [phone] Verónica Benavides MD [address] [place] [address] [place] [address] 04/09/2024 2:30 PM EDT Home Visit [facility], [address] [place] [address] Destiny Schultz RN 132 [facility] [place] [address] 04/21/2024 10:30 AM EDT Telemedicine Urology, [facility] 132 [facility] [place] [address] Chandler Pena MD [address] [place] [address] [place] [address] 11/24/2024 1:40 PM EDT Office Visit Dermatology [address] [place] [address] Sheryl Pena PA-C [address] [place] [address] [place] [address] Scheduled Orders Name Type Priority Associated Diagnoses Orde r Schedule URINALYSIS, REFLEX TO CULTURE (NOT FOR NEUTROPENIC PATIENTS) Lab Routine Burning with urination Cloudy urine Foul smelling urine Low back pain without sciatica Expected: 03/17/2024, Expires: 03/17/2025 Health Maintenance Due Date Last Done Comments [...] Additional history exists CKD PHOS USE SMARTSET 04800 02/08/202401/23, 08/07/2021, 11/09/2019, Additional history exists TSH 03/25/2024 03/25/2023, 07/0 10/2022, 10/28/2022, Additional history exists Influenza Vaccine (FLU shot) (#1) 2024 06/20/2022, 06/20/2022, 06/29/2021, Additional history exists CKD HGB USE SMARTSET 10642 05/26/202405/26, 05/26/2023, 04/07/2023, Additional history exists Pneumococcal [...] this encounter Visit Diagnoses Diagnosis Burning with urination- Primary Dysuria Cloudy urine Other nonspecific finding on examination of urine Foul smelling urine Other nonspecific finding on examination of urine Low back pain without sciatica Lumbago documented in this encounter Advance Directives Documents on File Type Date Recorded Patient Applier Expl anation Advance Directives and Living Will 08/10/2021 ADVANCE DIRECTIVE / LIVING WILL LIVING WILL Healthcare Agents on File Name Relationship Healthcare Agent Relationshi p Communication Josselyn Judd Adult Child Health Care Power of Attor nathalie Care Teams Cat Skinner Relationship Specialty Start Date End Date Verónica Benavides MD [address] [place] [address] [place] [address] PCP - General Family Medicine 09/16/14 documented as of this encounter
--- OUTSIDE RECORDS SUMMARY | 2024-04-24 11:13 | External Medical Summary | Summary of Care ---
Author Name Unknown Organization [facility] Address [address] [place] [address] Phone [phone] Care Team Providers Care Fabric Pattern Grader Name Role Phone Verónica Benavides MD Primary Care Provide r Reason for Visit * Reason Onset Date Comments Order Request 03/01/2024 Lift Bed order Encounter Details Date Type Department Care Team (Late st Contact Info) Description 03/01/2024 Telephone Family [address] [phone] Verónica Benavides MD [address] [place] [address] [place] [address] Order Request (Lift Bed order ) [...] mouth in the morning. 08/08/2021 Active Nystatin 229436 UNIT/GM External Powder (Nystop)Indications: Lydia rash of [...] XL)Indications:Non-i schemic cardiomyopathy (HCC),Coronary artery disease involving [place] coronary artery of [place] heart without angina pectoris,HTN, goal below 140/90 [...] Tablet 3 07/08/2023 Active OneTouch Delica Plus [id number] :Type 2 diabetes mellitus with hemoglobin A1c [...] If no improvement on day 3, contact [facility] for possible home visit 1 [...] 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 Last Assessment & Plan: [facility] Triage Call: Reviewed last C&S [...] Continue synthroid Coronary artery disease invo lving [place] coronary artery of [place] heart without angina pectoris 07/03/2012 Overview: 60% [...] mRNA, LNP-s, No Pre serve, 2-Dose Series ([employer]) 08/29/2021,10/23/2020,10/02/2020 COVID-19, MRNA-LNP, 23-24, P F, 30 MCG/0.3 mL, 12 YRS AND ABOVE, IM (Zova-ComirnatWrite.my) 08/04/2023 Covid-19, Mrna, Lnp-s, Pf, B ivalent, [...] dx requires the lift bed. Fax number: [phone] Attention to Name/Company: [facility] Any additional information?: Mimi states that [...] pended,if agreeble. Then we will fax to [facility] Pt has an appt with you in March If it comes back and we [facility], pt will need to wait until her appt, so we have clinic notes to send * Telephone Encounter - Nirmala Montero OSA - 03/01/2024 4:48 PM EDT Mimi from [facility] states patient is asking for a lift [...] 3:40 PM EDT Office Visit Family Medicine [address] [place] [phone] Verónica Benavides MD [address] [place] [address] [place] [address] 04/09/2024 2:30 PM EDT [facility] [address] [place] [id number] Destiny Schultz RN [address] [place] [address] 04/21/2024 10:30 AM EDT Telemedicine Urology, [facility] [address] [place] [address] Chandler Pena MD 27 [facility] [place] [address] 11/24/2024 1:40 PM EDT Office Visit Dermatology [address] [place] [address] Sheryl Pena PA-C [address] [place] [address] [place] [address] Health Maintenance Due Date Last Done Comments [...] Additional history exists CKD PHOS USE SMARTSET 37080 02/08/202401/23, 08/07/2021, 11/09/2019, Additional history exists TSH 03/25/2024 03/25/2023, 07/0 10/2022, 10/28/2022, Additional history exists Influenza Vaccine (FLU shot) (#1) 2024 06/20/2022, 06/20/2022, 06/29/2021, Additional history exists CKD HGB USE SMARTSET 72695 05/26/202405/26, 05/26/2023, 04/07/2023, Additional history exists Pneumococcal [...] Documents on File Type Date Recorded 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
--- OUTSIDE RECORDS SUMMARY | 2024-04-24 11:13 | External Medical Summary ---
Author Name Unknown Address Unknown Organization K01:[facility] [place] [address] [facility] [address] [facility] [address] Laboratory Report Ordering Provider Test Date Status SARAH GAO 03/17/2024 21:14:00 Final Observation Date Value Abnormality Reference (Units ) Status Bacteria identified in Specimen by Culture 03/17/2024 21:14:00 [id number]^PROTEUS MIRABILIS Abnormal Final 10,000 to 100,000 colonies/m L Proteus mirabilis Bacteria identified in Specimen by Culture 03/17/2024 21:14:00 [id number]^ENTEROCOCCUS SPECIES Abnormal Final 10,000 to 100,000 colonies/m L Enterococcus species Performing Location [facility] [place] [address] [facility] [address] [facility] [address] Ordering Provider Test Date Status SARAH GAO 03/17/2024 21:14:00 Final Observation Date Value Abnormality Reference (Units ) Status Ampicillin 03/17/2024 21:14:00 <=2 Susceptible Final Cefazolin 03/17/2024 21:14:00 <=4 Susceptible Final Cefepime susceptibility 03/17/2024 21:14:00 <=1 Susceptible Final Ceftriaxone suceptibility 03/17/2024 21:14:00 <=1 Susceptible Final Ciprofloxacin 03/17/2024 21:14:00 <=0.25 Susceptible Final Due to serious side effects, the FDA has advised against using Ciprofloxacin to treat uncomplicated UTIs and respiratory tract infections unless there are no alternative treatment options. Gentamicin susceptibility 03/17/2024 21:14:00 <=1 Susc eptible Final Piperacillin + Tazobactamsusceptibility 03/17/2024 21:14:00 <=4 Susceptible Final TMP-SMZ susceptibility 03/17/2024 21:14:00 <=20 Suscept ible Final Performing Location [facility] [place] [address] [facility] [facility] [address] Ordering Provider Test Date Status SARAH GAO 03/17/2024 21:14:00 Final Observation Date Value Abnormality Reference (Units ) Status Ampicillin 03/17/2024 21:14:00 >=32 Resistant Final Nitrofurantoin susceptibility 03/17/2024 21:14:00 32 Susceptible Final Tetracyclinesusceptibility 03/17/2024 21:14:00 >=16 Resistant Final Vancomycinsusceptibility 03/17/2024 21:14:00 <=0.5 Susceptible Final Test: Culture, Urine, Quanti tative
Specimen Source: Urine, Clean Catch
Specimen Type: Urine
Specimen Date: 03/17/[id number]
Result Date: 03/21/2024 150
Result Status: Final result
Abnormal: Yes
Resulting Lab: [facility]
[address]
[facility] [address]

CULTURE

10,000 to 100,000 colonies/mL Proteus mirabilis (Abnormal)

10,000 to 100,000 colonies/mL Enterococcus species (Abnormal)

SUSCEPTIBILITY

Proteus mirabilis Enterococcus
species
METHOD MICROBROTH MICROBROTH
DILUTIONS DILUTIONS

AMPICILLIN <=2 Susceptible >=32 Resistant
CEFAZOLIN <=4 Susceptible
CEFEPIME <=1 Susceptible
CEFTRIAXONE <=1 Susceptible
CIPROFLOXACIN <=0.25 Susceptible
[1]
GENTAMICIN <=1 Susceptible
NITROFURANTOIN 32 Susceptible
PIPERACILLIN TAZOBACTAM <=4 Susceptible
TETRACYCLINE >=16 Resistant
TRIMETH/SULFAMETHOXAZOLE <=20 Susceptible
VANCOMYCIN <=0.5 Susceptible

[1] Due to serious side effects, the FDA has advised against using
Ciprofloxacin to treat uncomplicated UTIs and respiratory tract infections
unless there are no alternative treatment options.

null Performing Location [facility] [place] [address] [facility] [address]
--- OUTSIDE RECORDS SUMMARY | 2024-04-24 11:13 | External Medical Summary | Summary of Care ---
Author Name Unknown Organization [facility] Address [address] [place] [address] Phone [phone] Care Team Providers Care Sports Anchor Name Role Phone Verónica Benavides MD Primary Care Provide r Reason for Visit * Reason Comments Outpatient Testing Encounter Details Date Type Department Care Team (Late st Contact Info) Description 03/18/2024 9:20 AM EDT Laboratory Laboratory [address] [place] [id number] , Specimen Drop Off [address] [place] [address] Burning with urination; Cloudy urine; Foul smelling [...] mouth in the morning. 08/08/2021 Active Nystatin 217879 UNIT/GM External Powder (Nystop)Indications: Lydia rash of [...] XL)Indications:Non-i schemic cardiomyopathy (HCC),Coronary artery disease involving [place] coronary artery of [place] heart without angina pectoris,HTN, goal below 140/90 [...] Tablet 3 07/08/2023 Active OneTouch Delica Plus [id number] :Type 2 diabetes mellitus with hemoglobin A1c goal of less than 8.0% ([facility]) Test up to two times daily or as directed by [facility] pharmacist 200 Each 3 07/11/2023 Active [...] If no improvement on day 3, contact [facility] for possible home visit 1 [...] Continue synthroid Coronary artery disease invo lving [place] coronary artery of [place] heart without angina pectoris 07/03/2012 Overview: 60% [...] mRNA, LNP-s, No Pre serve, 2-Dose Series (just.me) 08/29/2021,10/23/2020,10/02/2020 COVID-19, MRNA-LNP, 23-24, P F, 30 MCG/0.3 mL, 12 YRS AND ABOVE, IM ([employer]-Comirnat[employer]eregene) 08/04/2023 Covid-19, Mrna, Lnp-s, Pf, B ivalent, [...] PM EDT Scheduled Telephone [facility], [place] [address] [place] [address] Coordinator, [place] [address] [address] [place] [address] 03/20/2024 11:30 AM EDT Scheduled Telephone [facility], [place] [address] [place] [address] Region, Nurse [place] [address] [address] [place] [address] 03/30/2024 3:40 PM EDT Telemedicine Family Medicine [address] [place] [phone] Verónica Benavides MD [address] [place] [address] [place] [address] 04/09/2024 2:30 PM EDT Home Visit [facility], [facility] [address] [place] [address] Destiny Schultz, POPPY [address] [place] [address] 04/21/2024 10:30 AM EDT Telemedicine Urology, [facility] [address] [place] [address] Chandler Pena MD [address] [place] [address] 11/24/2024 1:40 PM EDT Office Visit Dermatology [address] [place] [address] Sheryl Pena PA-C [address] [place] [address] [place] [address] Pending Results Name Type Priority Associated Diagnoses [...] Additional history exists CKD PHOS USE SMARTSET 08958 02/08/202401/23, 08/07/2021, 11/09/2019, Additional history exists TSH 03/25/2024 03/25/2023, 07/10/2022, 10/28/2022, Additional history exists Influenza Vaccine (FLU shot) (#1) 2024 06/20/2022, 06/20/2022, 06/29/2021, Additional history exists CKD HGB USE SMARTSET 04936 05/26/202405/26, 05/26/2023, 04/07/2023, Additional history exists Pneumococcal [...] Documents on File Type Date Recorded Patient 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
--- OUTSIDE RECORDS SUMMARY | 2024-04-24 11:13 | External Medical Summary | Summary of Care ---
Author Name Unknown Organization [facility] Address [address] [place] [address] Phone [phone] Care Team Providers Care Window Unit Air Conditioning Mechanic Name Role Phone Verónica Benavides MD Primary Care Provide r Reason for Visit * Reason Comments Outpatient Testing Encounter Details Date Type Department Care Team (Late st Contact Info) Description 03/18/2024 9:20 AM EDT Laboratory Laboratory [address] [place] [id number] , Specimen Drop Off [address] [place] [address] Burning with urination; Cloudy urine; Foul smelling [...] mouth in the morning. 08/08/2021 Active Nystatin 517396 UNIT/GM External Powder (Nystop)Indications: Lydia rash of [...] Tablet 3 07/08/2023 Active OneTouch Delica Plus [id number] :Type 2 diabetes mellitus with hemoglobin A1c [...] If no improvement on day 3, contact [facility] for possible home visit 1 [...] mRNA, LNP-s, No Pre serve, 2-Dose Series (Cinna[employer]id) 08/29/2021,10/23/2020,10/02/2020 COVID-19, MRNA-LNP, 23-24, P F, 30 MCG/0.3 mL, 12 YRS AND ABOVE, IM ([employer]ico.[employer]-ComirnatTebla) 08/04/2023 Covid-19, Mrna, Lnp-s, Pf, B ivalent, [...] PM EDT Scheduled Telephone [facility], [place] [address] [place] [address] Coordinator, [place] [address] [address] [place] [address] 03/20/2024 11:30 AM EDT Scheduled Telephone [facility], [place] [address] [place] [address] Region, Nurse [place] [address] [address] [place] [address] 03/30/2024 3:40 PM EDT Telemedicine Family Medicine [address] [place] [phone] Verónica Benavides MD [address] [place] [address] [place] [address] 04/09/2024 2:30 PM EDT Home Visit [facility], [facility] [address] [place] [address] Destiny Schultz, POPPY [address] [place] [address] 04/21/2024 10:30 AM EDT Telemedicine Urology, [facility] [address] [place] [address] Chandler Pena MD [address] [place] [address] 11/24/2024 1:40 PM EDT Office Visit Dermatology [address] [place] [address] Sheryl Pena PA-C [address] [place] [address] [place] [address] Pending Results Name Type Priority Associated Diagnoses [...] Additional history exists CKD PHOS USE SMARTSET 81962 02/08/202401/23, 08/07/2021, 11/09/2019, Additional history exists TSH 03/25/2024 03/25/2023, 07/10/2022, 10/28/2022, Additional history exists Influenza Vaccine (FLU shot) (#1) 2024 06/20/2022, 06/20/2022, 06/29/2021, Additional history exists CKD HGB USE SMARTSET 24758 05/26/202405/26, 05/26/2023, 04/07/2023, Additional history exists Pneumococcal [...] Documents on File Type Date Recorded Patient Call Center Assistant Expl anation Advance Directives and Living Will 08/10/2021 ADVANCE DIRECTIVE / LIVING WILL LIVING WILL Healthcare Agents on File Name Relationship Healthcare Agent [facility] Communication Josselyn Judd Adult [facility] Health Care Power of Attor nathalie Care Teams Window Unit Air Conditioning Mechanic Relationship Specialty Start Date End Date Verónica Benavides MD [address] [place] [address] [place] [address] PCP - General Family Medicine 09/16/14 documented as of this encounter
--- OUTSIDE RECORDS SUMMARY | 2024-04-24 11:14 | External Medical Summary | Summary of Care ---
Author Name Unknown Organization [facility] Address [address] [place] [address] Phone [phone] Care Team Providers Care Physician Name Role Phone Verónica Benavides MD Primary Care Provide r Encounter Details Date Type Department Care Team (Latest Contact Info) Description 03/04/2024 3:15 PM EDT - 03/04/2024 11:59 PM EDT Hospital Encounter Radiology Film File [address] [place] [address] Arrived Discharge Disposition: Home - Self Care Allergies Active Allergy Reactions Criticality Noted Date Comments Adhesive Tape Medium 01/30/2022 Ibuprofen Hives 01/13/2012 Aspirin Hives,Rash 09/15/2000 Sulfamethoxazole-Trimeth oprim Nausea/vomiting,Othe r (Please comment) 10/27/2020 Dizziness Ciprofloxacin Hcl 06/16/2019 Hoarse, dizzy,disoriented Morphine 09/21/2021 Blacked out Penicillins Hives,Rash 09/15/2000 Prednisone 12/30/2017 Weakness/memory changes/blurred vision documented as of this encounter (statuses as of 03/05/2024) Medications Medication Sig Dispensed Refills Start Date [...] mouth in the morning. 08/08/2021 Active Nystatin 373124 UNIT/GM External Powder (Nystop)Indications: Lydia rash of [...] schemic cardiomyopathy (HCC),Coronary artery disease involving [place] coronary artery of [place] heart without angina pectoris,HTN, goal below 140/90 [...] Tablet 3 07/08/2023 Active OneTouch Delica Plus [id number] :Type 2 diabetes mellitus with hemoglobin A1c goal of less than 8.0% (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 Last Assessment & Plan: [facility] Triage Call: Reviewed last [...] synthroid Coronary artery disease invo lving [place] coronary artery of [place] heart without angina pectoris 07/03/2012 Overview: 60% [...] as of this encounter (statuses as of 03/05/2024) Resolved Problems Problem Noted Date Diagnosed Date [...] as of this encounter (statuses as of 03/05/2024) Immunizations Name Administration Dates Next Due COVID-19 mRNA, LNP-s, No Pre serve, 2-Dose Series ([employer]) 08/29/2021,10/23/2020,10/02/2020 COVID-19, MRNA-LNP, 23-24, P F, 30 MCG/0.3 mL, 12 YRS AND ABOVE, IM ([facility]) 08/04/2023 Covid-19, Mrna, Lnp-s, Pf, B ivalent, [...] PM EDT Office Visit Family Medicine [address] [place] [phone] Verónica Benavides MD [address] [place] [address] [place] [address] 04/09/2024 2:30 PM EDT Home Visit [facility] 132 [facility] [place] [address] Destiny Schultz, POPPY 132 [facility] [place] [address] 04/21/2024 10:30 AM EDT Telemedicine Urology, [facility] [address] [place] [address] Chandler Pena MD [address] [place] [address] 11/24/2024 1:40 PM EDT Office Visit Dermatology [address] [place] [address] Sheryl Pena PA-C [address] [place] [address] [place] [address] Health Maintenance Due Date Last Done Comments [...] Additional history exists CKD PHOS USE SMARTSET 55319 02/08/202401/23, 08/07/2021, 11/09/2019, Additional history exists TSH 03/25/2024 03/25/2023, 0710/2022, 10/28/2022, Additional history exists Influenza Vaccine (FLU shot) (#1) 2024 06/20/2022, 06/20/2022, 06/29/2021, Additional history exists CKD HGB USE SMARTSET 09874 05/26/202405/26, 05/26/2023, 04/07/2023, Additional history exists Pneumococcal [...] Routine 03/04/2024 3:15 PM EDT Skin neoplasm documented in this encounter Results * DERM EXAM - DERM (IMAGES ONLY, NO REPORT) (03/04/2024 3:15 PM EDT) Narrative Scheduling, Silent - 03/04/2024 3:15 PM EDT This is an imaging study not interpreted or resulted by a unamiaer or [employer] contracted radiologist. 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
--- OUTSIDE RECORDS SUMMARY | 2024-04-24 11:14 | External Medical Summary | Summary of Care ---
Author Name Unknown Organization [facility] Address [address] [place] [address] Phone [phone] Care Team Providers Care Corporate Vp Advertising & Online Name Role Phone Verónica Benavides MD Primary Care Provide r Reason for Visit * Reason Onset Date Comments Advice 03/07/2024 Encounter Details Date Type Department Care Team (Late st Contact Info) Description 03/07/2024 Telephone Access Center, [address] *DO NOT REMOVE THIS DEPARTMENT* [place] [address] Services, Scheduling [address] [place] [address] Advice Allergies Active Allergy Reactions Criticality Noted [...] mouth in the morning. 08/08/2021 Active Nystatin 307952 UNIT/GM External Powder (Nystop)Indications: Lydia rash of [...] XL)Indications:Non-i schemic cardiomyopathy (HCC),Coronary artery disease involving [place] coronary artery of [place] heart without angina pectoris,HTN, goal below 140/90 [...] Tablet 3 07/08/2023 Active OneTouch Delica Plus [id number] :Type 2 diabetes mellitus with hemoglobin A1c [...] EVERY MORNING 45 Tablet 3 03/03/2024 Active Cephalexin 500 MG Oral CapsuleIndications:C ellulitis of face Take 1 Capsule by mouth in the morning and 1 Capsule at noon and 1 Capsule before bedtime. Do all this for 7 days. 21 Capsule 03/06/2024 4 Active Doxycycline Hyclate 100 MG Oral CapsuleIndications:C ellulitis of face Take 1 Capsule by mouth in the morning and 1 Capsule before bedtime. Do all this for 7 days. Until gone.. 14 Capsule 03/06/2024 4 Active documented as of this encounter [...] Continue synthroid Coronary artery disease invo lving [place] coronary artery of [place] heart without angina pectoris 07/03/2012 Overview: 60% [...] mRNA, LNP-s, No Pre serve, 2-Dose Series ([employer]) 08/29/2021,10/23/2020,10/02/2020 COVID-19, MRNA-LNP, 23-24, P F, 30 MCG/0.3 mL, 12 YRS AND ABOVE, IM ([facility]) 08/04/2023 Covid-19, Mrna, Lnp-s, Pf, B ivalent, 30 Mcg, IM, 12 yrs and above ([employer]) 08/02/2022 Pneumococcal Conjugate Vacc, 13 Valent (Prevnar) [...] encounter Miscellaneous Notes * Telephone Encounter - Rosalina Reeves LPN - 03/08/2024 10:17 AM EDT Call to daughter Josselyn - Potential infection would liekly be covered by doxycyline. Encouraged them to wash wound daily withsoap and water. Apply vaseline. Complete doxy course as prescribed. Follow up with nurses at [facility]. If develops fever, feeling unwell then go to ER. Daughter voiced understanding Patient's daughter called and Derm scheduling sent message to me - when I looked it looks like Dr. Plascencia spoke with her and I told the Derm scheduling they could tell her the message. I called Josselyn to see if she had any questions and she does not. * Telephone Encounter - Jack Plascencia MD - 03/08/2024 8:56 AM EDT Spoke with patient's daughter on 03/07. Potential infection would liekly be covered by doxycyline. Encouraged them to wash wound daily with soap and water. Apply vaseline. Complete doxy course as prescribed. Follow up with nurses at [facility]. If develops fever, feeling unwell then go to ER. Daughter voiced understanding * Telephone Encounter - Arti Eid OSA - 03/07/2024 8:46 AM EDT Pt's daughter Josselyn calling they saw Berna on 03/04. Benra did a bx of the right cheek and it isnow infected. Yesterday it was swollen and red and they called [facility] at home and they put her on Doxy and Keplex. Sent TT to Dr. Plascencia to call. Karla arti documented in this encounter Plan of Treatment Upcoming Encounters Date Type Department Care Team (Late st Contact Info) Description 03/30/2024 3:40 PM EDT Office Visit Family Medicine [address] [phone] Verónica Benavides MD [address] [place] [address] [place] [address] 04/09/2024 2:30 PM EDT [facility] Visit [facility] [place] [address] [place] [address] Destiny Schultz RN [address] [place] [address] 04/21/2024 10:30 AM EDT Telemedicine Urology, [facility] [address] [place] [address] Chandler Pena MD [address] [place] [address] 11/24/2024 1:40 PM EDT Office Visit Dermatology [address] [place] [address] Sheryl Pena PA-C [address] [place] [address] [place] [address] Health Maintenance Due Date Last Done Comments [...] Additional history exists CKD PHOS USE SMARTSET 15816 02/08/202401/23, 08/07/2021, 11/09/2019, Additional history exists TSH 03/25/2024 03/25/2023, 07/0 10/2022, 10/28/2022, Additional history exists Influenza Vaccine (FLU shot) (#1) 2024 06/20/2022, 06/20/2022, 06/29/2021, Additional history exists CKD HGB USE SMARTSET 77534 05/26/202405/26, 05/26/2023, 04/07/2023, Additional history exists Pneumococcal [...] Documents on File Type Date Recorded Patient Flexo Operator Expl anation Advance Directives and Living Will 08/10/2021 ADVANCE DIRECTIVE / LIVING WILL LIVING WILL Healthcare Agents on File Name Relationship [facility] Josselyn Judd Adult Child Health Care Power of Attor nathalie Care Teams Corporate Vp Advertising & Online Relationship Specialty Start Date End Date Verónica Benavides MD [address] [place] [address] [place] [phone] PCP - General Family Medicine 09/16/14 documented as of this encounter
--- OUTSIDE RECORDS SUMMARY | 2024-04-24 11:14 | External Medical Summary | Summary of Care ---
Author Name Unknown Organization [facility] Address [address] [place] [address] Phone [phone] Care Team Providers Care Lawn Sprinkler Servicer Name Role Phone Verónica Benavides MD Primary Care Provide r Reason for Visit * Reason Onset Date Comments [facility]: Maintenance 03/06/2024 Encounter Details Date Type Department Care Team (Late st Contact Info) Description 03/06/2024 Telephone [facility], [facility] [address] [place] [address] [facility], Nurse [facility] [address] [place] [address] [facility]: Maintenance Allergies Active Allergy Reactions Criticality Noted Date Comments Adhesive Tape Medium 01/30/2022 Ibuprofen Hives 01/13/2012 Aspirin Hives,Rash 09/15/2000 Sulfamethoxazole-Trimeth oprim Nausea/vomiting,Othe r (Please comment) 10/27/2020 Dizziness Ciprofloxacin Hcl 06/16/2019 Hoarse, dizzy,disoriented Morphine 09/21/2021 Blacked out Penicillins Hives,Rash 09/15/2000 Prednisone 12/30/2017 Weakness/memory changes/blurred vision documented as of this encounter (statuses as of 03/06/2024) Medications Medication Sig Dispensed Refills Start Date [...] mouth in the morning. 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,HTN, goal below 140/90 [...] Tablet 3 07/08/2023 Active OneTouch Delica Plus [id number] :Type 2 diabetes mellitus with hemoglobin A1c goal of less than 8.0% ([facility]) Test up to two times daily or as directed by [facility] pharmacist 200 Each 3 [...] as of this encounter (statuses as of 03/06/2024) Active Problems Problem Noted Date Diagnosed Date [...] Continue synthroid Coronary artery disease invo lving flandreau coronary artery of flandreau heart without angina pectoris 07/03/2012 Overview: 60% [...] as of this encounter (statuses as of 03/06/2024) Resolved Problems Problem Noted Date Diagnosed Date [...] as of this encounter (statuses as of 03/06/2024) Immunizations Name Administration Dates Next Due COVID-19 mRNA, LNP-s, No Pre serve, 2-Dose Series ([employer]) 08/29/2021,10/23/2020,10/02/2020 COVID-19, MRNA-LNP, 23-24, P F, 30 MCG/0.3 mL, 12 YRS AND ABOVE, IM ([employer]-Comirnat3225 films) 08/04/2023 Covid-19, Mrna, Lnp-s, Pf, B ivalent, 30 Mcg, IM, 12 yrs and above ([employer]) 08/02/2022 Influenza, Whole Virus 08/07/2000 Pneumococcal Conjugate [...] encounter Miscellaneous Notes * Addendum Note - Trever Mares MD - 03/06/2024 2:32 PM EDTAddended by: TREVER MARES on: 03/06/2024 02:32 PM Modules accepted: Orders * Telephone Encounter - Trever Mares MD - 03/06/2024 2:31 PM EDT 1. Cellulitis of face - Cephalexin 500 MG Oral Capsule; Take 1 Capsule by mouth in the morning and 1 Capsule at noon and 1 Capsule before bedtime. Do all this for 7 days. Dispense: 21 Capsule; Refill: 0 - Doxycycline Hyclate 100 MG Oral Capsule; Take 1 Capsule by mouth in the morning and 1 Capsule before bedtime. Do all this for 7 days. Until gone.. Dispense: 14 Capsule; Refill: 0 Antibiotics sent to her [facility] pharmacy today. See photograph in other telephone encounter. Infected wound following skin biopsy on her face. Given location and size of wound will treat aggressively covering for strep and potential Ca MRSA. Patient needs to call motor boss on Friday if not this as well to let them know what is going on. She will need to follow-up either with Dermatology in office or at the very least with PCPon Friday or Friday of next week * Telephone Encounter - Carol Portillo RN - 03/06/2024 1:59 PM EDT Images from the original note were not included. [employer] [facility] fuel manager Acute Call Date: 03/06/2024 Time: 1:59 PM Name: Regla Castano : 1935 Caller: Trinh Relationship to caregiver Chief Complaint Patient presents with [employer] [facility]: Maintenance HPI: Regla Castano is a 88 year old female whose caregiver is calling [employer] [facility] Intake to report that pt saw Derm on and had a "lump removed from her face", this morning when they took offthe bandage to clean it, caregiver noted the site was, red, inflamed and tender to touch. States that "it just doesn't look right" and is concerned for infection. Denies any fever/chills, Temp was 96.7 Just finished Omnicef for a UTI. Family did not call Dermatology Nursing Assessment: Patient's chief complaint for this call: Integumentary Pain Has pain Pain level: 5 Location: right cheek Quality of Pain: aching Does the pain radiate: No Baseline Assessment Able to performing ADLs at baseline (walking, daily tasks, etc.): Yes Chief Complaint is related to a chronic condition: No Patient prescribed oxygen? No Patient has been ordered DME equipment (assistive devices, respiratory equipment, etc.): Unknown Medication Reconciliation: Received flu shot this season: Yes Taking medication as ordered: Yes Medications ordered/taking to treat reason for call: No Heart failure symptoms: No COPD exacerbation symptoms: No Reinforcement Education: Provide daily wound care as directed by Derm Routed to religious education coordinator physician for recommendations [facility] [place] Treatment/Plan: Level of call: Non-Acute Recommended treatment plan: Clinical advice given over the phone Call back instructions provided to patient. KATY Lynn Car Driver [facility] documented in this encounter Plan of Treatment Upcoming Encounters Date Type Department Care Team (Late st Contact Info) Description 03/07/2024 1:30 PM EDT Scheduled Telephone [facility] [place], [facility] 132 [facility] [place] [address] [facility], Nurse [facility] [address] [place] [address] 03/30/2024 3:40 PM EDT Office Visit Family Medicine [address] [phone] Verónica Benavides MD [address] [place] [address] [place] [address] 04/09/2024 2:30 PM EDT [facility] [address] [place] [address] Destiny Schultz RN 132 [facility] [place] [address] 04/21/2024 10:30 AM EDT Telemedicine Urology, [facility] [address] [place] [address] Chandler Pena MD [address] [place] [address] 11/24/2024 1:40 PM EDT Office Visit Dermatology [address] [place] [address] Sheryl Pena PA-C [address] [place] [address] [place] [address] Health Maintenance Due Date Last Done Comments [...] Additional history exists CKD PHOS USE SMARTSET 10515 02/08/202401/23, 08/07/2021, 11/09/2019, Additional history exists TSH 03/25/2024 03/25/2023, 07/0 10/2022, 10/28/2022, Additional history exists Influenza Vaccine (FLU shot) (#1) 2024 06/20/2022, 06/20/2022, 06/29/2021, Additional history exists CKD HGB USE SMARTSET 87881 05/26/202405/26, 05/26/2023, 04/07/2023, Additional history exists Pneumococcal [...] as of this encounter Visit Diagnoses Diagnosis Cellulitis of face- Primary Cellulitis and abscess of face documented in this encounter Advance Directives Documents on File Type Date Recorded Patient Renal Dietitian Expl anation Advance Directives and Living Will 08/10/2021 ADVANCE DIRECTIVE / LIVING WILL LIVING WILL Healthcare Agents on File Name Relationship Healthcare Agent [facility] p Communication Josselyn [facility] Adult Child Health Care Power of Attor nathalie Care Teams Lawn Sprinkler Servicer Relationship Specialty Start Date End Date Verónica Benavides MD [address] [place] [address] [place] [phone] PCP - General Family Medicine 09/16/14 documented as of this encounter
--- OUTSIDE RECORDS SUMMARY | 2024-04-24 11:14 | External Medical Summary | Summary of Care ---
Author Name Unknown Organization [facility] Address [address] [place] [address] Phone [phone] Care Team Providers Care Records Management Manager Name Role Phone Verónica Benavides MD Primary Care Provide r Reason for Visit * Reason Onset Date Comments [facility]: Maintenance 03/06/2024 Encounter Details Date Type Department Care Team (Late st Contact Info) Description 03/06/2024 Telephone [facility], [facility] [address] [place] [address] [facility], Nurse [facility] [address] [place] [address] [facility]: Maintenance Allergies Active Allergy [...] mouth in the morning. 08/08/2021 Active Nystatin 090477 UNIT/GM External Powder (Nystop)Indications: Lydia rash of [...] XL)Indications:Non-i schemic cardiomyopathy (HCC),Coronary artery disease involving timbi-sha shoshone coronary artery of timbi-sha shoshone heart without angina pectoris,HTN, goal below 140/90 [...] Tablet 3 07/08/2023 Active OneTouch Delica Plus [id number] :Type 2 diabetes mellitus with hemoglobin A1c goal of less than 8.0% ([facility]) Test up to two times daily or as directed by [facility] pharmacist 200 Each 3 [...] no improvement on day 3, contact [facility] for possible home visit 1 Each [...] carrier 06/29/2021 Last Assessment & Plan: [facility] Triage Call: Reviewed last C&S - [...] Continue synthroid Coronary artery disease invo lving timbi-sha shoshone coronary artery of timbi-[place] shoshone heart without angina pectoris 07/03/2012 Overview: 60% [...] mRNA, LNP-s, No Pre serve, 2-Dose Series ([employer]) 08/29/2021,10/23/2020,10/02/2020 COVID-19, MRNA-LNP, 23-24, P F, 30 MCG/0.3 mL, 12 YRS AND ABOVE, IM ([employer]-ComirnatFootballScout) 08/04/2023 Covid-19, Mrna, Lnp-s, Pf, B ivalent, 30 Mcg, IM, 12 yrs and above ([employer]) 08/02/2022 Influenza, Whole Virus 08/07/2000 Pneumococcal Conjugate [...] Capsule; Refill: 0 Antibiotics sent to her [facility] pharmacy today. See photograph in other telephone encounter. Infected wound following skin biopsy on her face. Given location and size of wound will treat aggressively covering for strep and potential Ca MRSA. Patient needs to call dial brusher on Friday if not this as well to let them know what is going on. She will need to follow-up either with Dermatology in office or at the very least with PCPon Friday or Friday of next week * Telephone Encounter - Carol Portillo RN - 03/06/2024 1:59 PM EDT Images from the original note were not included. [employer] [facility] public safety telecommunicator Acute Call Date: 03/06/2024 Time: 1:59 PM Name: Regla Castano : 1935 Caller: Trinh Relationship to caregiver Chief Complaint Patient presents with [employer] [facility]: Maintenance HPI: Regla Castano is a 88 year old female whose caregiver is calling [employer] [facility] Intake to report that pt [...] care as directed by Derm Routed to dust control engineer physician for recommendations [facility] [place] Treatment/Plan: Level of call: Non-Acute Recommended treatment plan: Clinical advice given over the phone Call back instructions provided to patient. KATY Lynn [employer] Scout [facility] documented in this encounter Plan of Treatment Upcoming Encounters Date Type Department Care Team (Late st Contact Info) Description 03/07/2024 1:30 PM EDT Scheduled Telephone [facility] [place], [facility] 132 [facility] [place] [address] [facility], Nurse [facility] [address] [place] [address] 03/30/2024 3:40 PM EDT Office Visit Family Medicine [address] [phone] Verónica Benavides MD [address] [place] [address] [place] [address] 04/09/2024 2:30 PM EDT [facility] [address] [place] [address] Destiny Schultz RN 132 [facility] [place] [address] 04/21/2024 10:30 AM EDT Telemedicine Urology, [facility] [address] [place] [address] Chandler Pena MD [address] [place] [address] 11/24/2024 1:40 PM EDT Office Visit Dermatology [address] [place] [address] Sheryl Pena PA-C [address] [place] [address] [place] [address] Health Maintenance Due Date Last Done Comments [...] Additional history exists CKD PHOS USE SMARTSET 33541 02/08/202401/23, 08/07/2021, 11/09/2019, Additional history exists TSH 03/25/2024 03/25/2023, 07/0 10/2022, 10/28/2022, Additional history exists Influenza Vaccine (FLU shot) (#1) 2024 06/20/2022, 06/20/2022, 06/29/2021, Additional history exists CKD HGB USE SMARTSET 57371 05/26/202405/26, 05/26/2023, 04/07/2023, Additional history exists Pneumococcal [...] Documents on File Type Date Recorded Patient Operation Manager Expl anation Advance Directives and Living Will 08/10/2021 ADVANCE DIRECTIVE / LIVING WILL LIVING WILL Healthcare Agents on File Name Relationship Healthcare Agent [facility] p Communication Josselyn [facility] Adult Child Health Care Power of Attor nathalie Care Teams Records Management Manager Relationship Specialty Start Date End Date Verónica Benavides MD [address] [place] [address] [place] [phone] PCP - General Family Medicine 09/16/14 documented as of this encounter
--- OUTSIDE RECORDS SUMMARY | 2024-04-24 11:14 | External Medical Summary | Summary of Care ---
Author Name Unknown Organization [facility] Address [address] [place] [address] Phone [phone] Care Team Providers Care Actuarial Science Professor Name Role Phone Verónica Benavides MD Primary Care Provide r Reason for Visit * Reason Onset Date Comments [facility]: Maintenance 03/06/2024 Encounter Details Date Type Department Care Team (Late st Contact Info) Description 03/06/2024 Telephone [facility], [facility] [address] [place] [address] [facility], Nurse [facility] [address] [place] [address] [facility]: Maintenance Allergies Active Allergy [...] mouth in the morning. 08/08/2021 Active Nystatin 600598 UNIT/GM External Powder (Nystop)Indications: Lydia rash of [...] schemic cardiomyopathy (HCC),Coronary artery disease involving [place] coronary artery of 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 george coronary artery of [place] george heart without angina pectoris 07/03/2012 Overview: 60% [...] mRNA, LNP-s, No Pre serve, 2-Dose Series ([employer]) 08/29/2021,10/23/2020,10/02/2020 COVID-19, MRNA-LNP, 23-24, P F, 30 MCG/0.3 mL, 12 YRS AND ABOVE, IM ([employer]-Comirnat[employer]s) 08/04/2023 Covid-19, Mrna, Lnp-s, Pf, B ivalent, 30 Mcg, IM, 12 yrs and above ([employer]) 08/02/2022 Influenza, Whole Virus 08/07/2000 Pneumococcal Conjugate [...] Encounter - Carol Portillo RN - 03/06/2024 2:47 PM EDT Phone call to caregiver Trinh to make her aware of [facility] recommendations: Antibiotics sent to her [facility] pharmacy today. See photograph in other telephone encounter. Infected wound following skin biopsy on her face. Given location and size of wound will treat aggressively covering for strep and potential Ca MRSA. Patient needs to call curtain fitter on Friday if not this weekend as well to let them know what is going on. She will need to follow-up either with Dermatology in office or at the very least with [facility]CP[facility] Friday or Friday of next week Caregiver verbalized understanding Follow up call for tomorrow scheduled. KATY Lynn Typewriter Assembly And Parts Inspector [facility] * Addendum Note - Daniel Mares MD - 03/06/2024 2:32 PM EDTAddended by: DANIEL MARES on: 03/06/2024 02:32 PM Modules accepted: Orders * Telephone Encounter - Daniel Mares MD - 03/06/2024 2:31 PM EDT [...] Capsule; Refill: 0 Antibiotics sent to her [facility] pharmacy today. See photograph in other telephone encounter. Infected wound following skin biopsy on her face. Given location and size of wound will treat aggressively covering for strep and potential Ca MRSA. Patient needs to call curtain fitter on Friday if not this as well to let them know what is going on. She will need to follow-up either with Dermatology in office or at the very least with PCPon Friday or Friday of next week * Telephone Encounter - Carol Portillo RN - 03/06/2024 1:59 PM EDT Images from the original note were not included. [facility] live study manager Acute Call Date: 03/06/2024 Time: 1:59 PM Name: Regla Castano : 1935 Caller: Trinh Relationship to caregiver Chief Complaint Patient presents with [facility]: Maintenance HPI: Regla Castano is a 88 year old female whose caregiver is calling [employer] at [facility] Intake to report that pt [...] care as directed by Derm Routed to continuous loft operator physician for recommendations [facility] [place] Treatment/Plan: Level of call: Non-Acute Recommended treatment plan: Clinical advice given over the phone Call back instructions provided to patient. KATY Lynn Typewriter Assembly And Parts Inspector [facility] documented in this encounter Plan of Treatment Upcoming Encounters Date Type Department Care Team (Late st Contact Info) Description 03/07/2024 1:30 PM EDT Scheduled Telephone [facility], [address] [place] [address] [facility], Nurse [address] [place] [address] 03/30/2024 3:40 PM EDT Office Visit Family Medicine [address] [place] [phone] Verónica Benavides MD [address] [place] [address] [place] [address] 04/09/2024 2:30 PM EDT [facility] Visit [facility], [facility] [address] [place] [address] Destiny Schultz RN [address] [place] [address] 04/21/2024 10:30 AM EDT Telemedicine Urology, [facility] [address] [place] [address] Chandler Pena MD [address] [place] [address] 11/24/2024 1:40 PM EDT Office Visit Dermatology [address] [place] [address] Sheryl Pena PA-Antonoi [address] [place] [address] [place] [address] Health Maintenance Due Date Last Done Comments [...] Additional history exists CKD PHOS USE SMARTSET 77406 02/08/2024 06/1 01/2023, 08/07/2021, 11/09/2019, Additional history exists TSH 03/25/2024 03/25/2023, 07/0 10/2022, 10/28/2022, Additional history exists Influenza Vaccine (FLU shot) (#1) 2024 06/20/2022, 06/20/2022, 06/29/2021, Additional history exists CKD HGB USE SMARTSET 58005 05/26/202405/26, 05/26/2023, 04/07/2023, Additional history exists Pneumococcal [...] Documents on File Type Date Recorded Patient Stars Analytical Lead Expl anation Advance Directives and Living Will 08/10/2021 ADVANCE DIRECTIVE / LIVING WILL LIVING WILL Healthcare Agents on File Name Relationship Healthcare Agent [facility] Communication Josseyln Judd [facility] Health Care Power of Attor nathalie Care Teams Actuarial Science Professor Relationship Specialty Start Date End Date Verónica Benavides MD [address] [place] [address] [place] [phone] PCP - General Family Medicine 09/16/14 documented as of this encounter
--- OUTSIDE RECORDS SUMMARY | 2024-04-24 11:14 | External Medical Summary | Summary of Care ---
Author Name Unknown Organization [facility] Address [address] [place] [address] Phone [phone] Care Team Providers Care Aerotriangulation Specialist Name Role Phone Verónica Benavides MD Primary Care Provide r Reason for Visit * Reason Onset Date Comments [facility]: Maintenance 03/07/2024 Encounter Details Date Type Department Care Team (Late st Contact Info) Description 03/07/2024 1:30 PM EDT Scheduled Telephone [facility], [facility] [address] [place] [address] [facility], [facility] [address] [place] [address] Allergies Active Allergy Reactions Criticality Noted Date Comments Adhesive Tape Medium 01/30/2022 Ibuprofen Hives 01/13/2012 Aspirin Hives,Rash 09/15/2000 Sulfamethoxazole-Trimeth oprim Nausea/vomiting,Othe r (Please comment) 10/27/2020 Dizziness Ciprofloxacin Hcl 06/16/2019 Hoarse, dizzy,disoriented Morphine 09/21/2021 Blacked out Penicillins Hives,Rash 09/15/2000 Prednisone 12/30/2017 Weakness/memory changes/blurred vision documented as of this encounter (statuses as of 03/07/2024) Medications Medication Sig Dispensed Refills Start Date [...] mouth in the morning. 08/08/2021 Active Nystatin 142640 UNIT/GM External Powder (Nystop)Indications: Lydia rash of [...] XL)Indications:Non-i schemic cardiomyopathy (HCC),Coronary artery disease involving [place] coronary artery of [place] heart without angina pectoris,HTN, goal below 140/90 [...] Tablet 3 07/08/2023 Active OneTouch Delica Plus [id number] :Type 2 diabetes mellitus with hemoglobin A1c goal of less than 8.0% ([facility]) Test up to two times daily or as directed by [facility] pharmacist 200 Each 3 07/11/2023 Active [...] improvement on day 3, contact [facility] for possible home visit 1 Each [...] as of this encounter (statuses as of 03/07/2024) Active Problems Problem Noted Date Diagnosed Date [...] 06/29/2021 Last Assessment & Plan: [facility] Triage Call: Reviewed last C&S - [...] Continue synthroid Coronary artery disease invo lving [place] coronary artery of [place] heart without angina pectoris 07/03/2012 Overview: 60% [...] as of this encounter (statuses as of 03/07/2024) Resolved Problems Problem Noted Date Diagnosed Date [...] as of this encounter (statuses as of 03/07/2024) Immunizations Name Administration Dates Next Due COVID-19 mRNA, LNP-s, No Pre serve, 2-Dose Series ([employer]) 08/29/2021,10/23/2020,10/02/2020 COVID-19, MRNA-LNP, 23-24, P F, 30 MCG/0.3 mL, 12 YRS AND ABOVE, IM ([employer]) 08/04/2023 Covid-19, Mrna, Lnp-s, Pf, B ivalent, 30 Mcg, IM, 12 yrs and above ([employer]) 08/02/2022 Pneumococcal Conjugate Vacc, 13 Valent (Prevnar) [...] Telephone Encounter - Nanci Leiva RN - 03/07/2024 12:51 PM EDT [facility] Telephonic Nurse Follow-Up Call [facility] Subprogram: Primary Care at Home Follow Up Call Type: Weekend Call Acute issue requiring follow-up call: Other: Infected wound biopsy site Objective: 02/20/2024 2:00 PM 02/20/2024 1:59 PM [...] Medications: New medication(s) added: Cephalexin 500 mg TID x 7 days, Subjective: Condition Status: UTC Current Concerns: UTC, left message on answering machine wanting to confirm she started the antbx and is tolerating same, reminded her to contact dr who did the biopsy and make an appt to be seen, and to call [facility] withany new concerning symptoms or concerns. [phone]# provided Disposition: Issue resolved. All appropriate follow up scheduled. Future Visits Scheduled: Future Appointments-next 60 days Date/Time Provider Specialty Dept Phone 03/07/2024 1:[address] [facility] [phone] 03/30/2024 3:40 PM (Arrive by 3:25 PM) Verónica Benavides MD Family Medicine [phone] 04/09/2024 2:30 PM Destiny Schultz, POPPY [facility] [phone] 04/21/2024 10:30 AM Chandler Pena MD Urology [phone] 11/24/2024 1:40 PM (Arrive by 1:25 PM) Sheryl Pena PA-C Dermatology [phone] Nanci Leiva RN documented in this encounter Plan of Treatment Upcoming Encounters Date Type Department Care Team (Late st Contact Info) Description 03/30/2024 3:40 PM EDT Office Visit Family Medicine [address] [place] [phone] Verónica Benavides MD [address] [place] [address] [place] [address] 04/09/2024 2:30 PM EDT Home Visit [facility] [address] [place] [address] Destiny Schultz, RN 132 [facility] [place] [address] 04/21/2024 10:30 AM EDT Telemedicine Urology, [facility] [place] [address] Chandler Pena MD [address] [place] [address] 11/24/2024 1:40 PM EDT Office Visit Dermatology [address] [place] [address] Sheryl Pena PA-C [address] [place] [address] [place] [address] Health Maintenance Due Date Last Done Comments [...] Additional history exists CKD PHOS USE SMARTSET 53909 02/08/202401/23, 08/07/2021, 11/09/2019, Additional history exists TSH 03/25/2024 03/25/2023, 07/0 10/2022, 10/28/2022, Additional history exists Influenza Vaccine (FLU shot) (#1) 2024 06/20/2022, 06/20/2022, 06/29/2021, Additional history exists CKD HGB USE SMARTSET 24034 05/26/202405/26, 05/26/2023, 04/07/2023, Additional history exists Pneumococcal [...] Documents on File Type Date Recorded Patient Head Holder Expl anation Advance Directives and Living Will 08/10/2021 ADVANCE DIRECTIVE / LIVING WILL LIVING WILL Healthcare Agents on File Name Relationship Healthcare Agent Relationshi p Communication Josselyn Judd Adult Child Health Care Power of Attor nathalie Care Teams Aerotriangulation Specialist Relationship Specialty Start Date End Date Verónica Benavides MD [address] [place] [address] [place] [address] PCP - General Family Medicine 09/16/14 documented as of this encounter
--- OUTSIDE RECORDS SUMMARY | 2024-04-24 11:14 | External Medical Summary | Summary of Care ---
Author Name Unknown Organization [facility] Address [address] [place] [address] Phone [phone] Care Team Providers Care Event Services Manager Name Role Phone Verónica Benavides MD Primary Care Provide r Reason for Visit * Reason Onset Date Comments [facility]: Maintenance 03/06/2024 Encounter Details Date Type Department Care Team (Late st Contact Info) Description 03/06/2024 Telephone [facility], [facility] [address] [place] [address] [facility], Nurse [facility] [address] [place] [address] [facility]: Maintenance Allergies Active Allergy [...] mouth in the morning. 08/08/2021 Active Nystatin 381542 UNIT/GM External Powder (Nystop)Indications: Lydia rash of [...] XL)Indications:Non-i schemic cardiomyopathy (HCC),Coronary artery disease involving [place] coronary artery of [place] heart without angina pectoris,HTN, goal below 140/90 [...] Tablet 3 07/08/2023 Active OneTouch Delica Plus [id number] :Type 2 diabetes mellitus with hemoglobin A1c goal of less than 8.0% ([facility]) Test up to two times daily or as directed by [facility] pharmacist 200 Each 3 07/11/2023 Active [...] If no improvement on day 3, contact [facility] for possible home visit 1 [...] Continue synthroid Coronary artery disease invo lving [place] coronary artery of [place] heart without angina pectoris 07/03/2012 Overview: 60% [...] mRNA, LNP-s, No Pre serve, 2-Dose Series ([employer]) 08/29/2021,10/23/2020,10/02/2020 COVID-19, MRNA-LNP, 23-24, P F, 30 MCG/0.3 mL, 12 YRS AND ABOVE, IM ([employer]) 08/04/2023 Covid-19, Mrna, Lnp-s, Pf, B ivalent, 30 Mcg, IM, 12 yrs and above ([employer]) 08/02/2022 Influenza, Whole Virus 08/07/2000 Pneumococcal Conjugate [...] Capsule; Refill: 0 Antibiotics sent to her [facility] pharmacy today. See photograph in other telephone encounter. Infected wound following skin biopsy on her face. Given location and size of wound will treat aggressively covering for strep and potential Ca MRSA. * Telephone Encounter - Carol Portillo RN - 03/06/2024 1:59 PM EDT Images from the original note were not included. [facility] civil engineering director Acute Call Date: 03/06/2024 Time: 1:59 PM Name: Regla Castano : 1935 Caller: Trinh Relationship to caregiver Chief Complaint Patient presents with [facility]: Maintenance HPI: Regla Castano is a 88 year old female whose caregiver is calling [facility] Intake to report that pt [...] care as directed by Derm Routed to sales promotion representative physician for recommendations Uses [facility] in [place] Treatment/Plan: Level of call: Non-Acute Recommended treatment plan: Clinical advice given over the phone Call back instructions provided to patient. KATY Lynn Store Product Demonstrator [facility] documented in this encounter Plan of Treatment Upcoming Encounters Date Type Department Care Team (Late st Contact Info) Description 03/07/2024 1:30 PM EDT Scheduled Telephone [facility], [address] [place] [address] [facility], Nurse [facility] [place] [address] 03/30/2024 3:40 PM EDT Office Visit Family Medicine [address] [place] [phone] Verónica Benavides MD [address] [place] [address] [place] [address] 04/09/2024 2:30 PM EDT Home Visit [facility], [facility] [address] [place] [address] Destiny Schultz RN 132 [facility] [place] [address] 04/21/2024 10:30 AM EDT Telemedicine Urology, [facility] 132 [facility] [place] [address] Chandler Pena MD [address] [place] [address] 11/24/2024 1:40 PM EDT Office Visit Dermatology [address] [place] [address] Sheryl Pena PA-C [address] [place] [address] [place] [address] Health Maintenance Due Date Last Done Comments [...] Additional history exists CKD PHOS USE SMARTSET 04778 02/08/202401/23, 08/07/2021, 11/09/2019, Additional history exists TSH 03/25/2024 03/25/2023, 07/0 10/2022, 10/28/2022, Additional history exists Influenza Vaccine (FLU shot) (#1) 2024 06/20/2022, 06/20/2022, 06/29/2021, Additional history exists CKD HGB USE SMARTSET 40059 05/26/202405/26, 05/26/2023, 04/07/2023, Additional history exists Pneumococcal [...] Documents on File Type Date Recorded 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
--- OUTSIDE RECORDS SUMMARY | 2024-04-24 11:14 | External Medical Summary | Summary of Care ---
Author Name Unknown Organization [facility] Address [address] [place] [address] Phone [phone] Care Team Providers Care Litigator Name Role Phone Veróniac Benavides MD Primary Care Provide r Reason for Visit * Reason Onset Date Comments Order Request 03/01/2024 Lift Bed order Encounter Details Date Type Department Care Team (Late st Contact Info) Description 03/01/2024 Telephone Family [address] [phone] Verónica Benavides MD [address] [place] [address] [place] [phone] Order Request (Lift Bed order ) Allergies Active Allergy Reactions Criticality Noted Date Comments Adhesive Tape Medium 01/30/2022 Ibuprofen Hives 01/13/2012 Aspirin Hives,Rash 09/15/2000 Sulfamethoxazole-Trimeth oprim Nausea/vomiting,Othe r (Please comment) 10/27/2020 Dizziness Ciprofloxacin Hcl 06/16/2019 Hoarse, dizzy,disoriented Morphine 09/21/2021 Blacked out Penicillins Hives,Rash 09/15/2000 Prednisone 12/30/2017 Weakness/memory changes/blurred vision documented as of this encounter (statuses as of 03/03/2024) Medications Medication Sig Dispensed Refills Start Date [...] mouth in the morning. 08/08/2021 Active Nystatin 638632 UNIT/GM External Powder (Nystop)Indications: Lydia rash of [...] XL)Indications:Non-i schemic cardiomyopathy (HCC),Coronary artery disease involving [place] coronary artery of [place] heart without angina pectoris,HTN, goal below 140/90 [...] goal of less than 8.0% ([facility]) TEST UP TO FOUR TIMES [...] Tablet 3 07/08/2023 Active OneTouch Delica Plus [id number] :Type 2 diabetes mellitus with hemoglobin A1c goal of less than 8.0% ([facility]) Test up to two times daily or as directed by [facility] pharmacist 200 Each 3 07/11/2023 [...] If no improvement on day 3, contact [facility] for possible home visit 1 [...] at bedtime 3.5 g 3 01/07/2024 Active Trulicity 0.75 MG/0.5ML Subcutaneous Solution Pen-injector [...] for 3 days. 6 Capsule 03/01/2024 4 Active documented as of this encounter (statuses as of 03/03/2024) Active Problems Problem Noted Date Diagnosed Date [...] 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 Last Assessment & Plan: [facility] Triage Call: Reviewed last C&S [...] Continue synthroid Coronary artery disease invo lving [place] coronary artery of [place] heart without angina pectoris 07/03/2012 Overview: 60% [...] as of this encounter (statuses as of 03/03/2024) Resolved Problems Problem Noted Date Diagnosed Date [...] as of this encounter (statuses as of 03/03/2024) Immunizations Name Administration Dates Next Due COVID-19 mRNA, LNP-s, No Pre serve, 2-Dose Series ([employer]) 08/29/2021,10/23/2020,10/02/2020 COVID-19, MRNA-LNP, 23-24, P F, 30 MCG/0.3 mL, 12 YRS AND ABOVE, IM ([employer]) 08/04/2023 Covid-19, Mrna, Lnp-s, Pf, B ivalent, 30 Mcg, IM, 12 yrs and above ([employer]) 08/02/2022 Pneumococcal Conjugate Vacc, 13 Valent (Prevnar) [...] pended,if agreeble. Then we will fax to [facility] Pt has an appt with you in March If it comes back and we have to submit it thru [facility] for Megan AGUIRRE, pt will need to wait until her appt, so we have clinic notes to send * Telephone Encounter - Nirmala Montero OSA - 03/01/2024 4:48 PM EDT Mimi from [facility] states patient is asking for a [...] [address] [place] [address] [place] [address] Berna Mathis PA-C [address] [place] [address] 03/04/2024 5:30 PM EDT Home Visit [facility] at [facility] [address] [place] [address] Destiny Schultz, POPPY [address] [place] [address] 03/30/2024 3:40 PM EDT Office Visit Family Medicine [address] [phone] Verónica Benavides MD [address] [place] [address] [place] [address] 04/09/2024 2:30 PM EDT Home Visit [facility] [address] [place] [address] Destiny Schultz, POPPY [address] [place] [address] 04/21/2024 10:30 AM EDT Telemedicine Urology, [facility] [address] [place] [address] Chandler Pena MD [address] [place] [address] 11/24/2024 1:40 PM EDT Office Visit Dermatology [address] [place] [address] Sheryl Pena PA-C [address] [place] [address] [place] [address] Health Maintenance Due Date Last Done Comments [...] Additional history exists CKD PHOS USE SMARTSET 02388 02/08/202401/23, 08/07/2021, 11/09/2019, Additional history exists TSH 03/25/2024 03/25/2023, 07/0 10/2022, 10/28/2022, Additional history exists Influenza Vaccine (FLU shot) (#1) 2024 06/20/2022, 06/20/2022, 06/29/2021, Additional history exists CKD HGB USE SMARTSET 07387 05/26/202405/26, 05/26/2023, 04/07/2023, Additional history exists Pneumococcal [...] Documents on File Type Date Recorded 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
--- OUTSIDE RECORDS SUMMARY | 2024-04-24 11:14 | External Medical Summary | Summary of Care ---
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, scaly and itchy * Evaluate & Treat - Unlimited Visits (Within 3 days (urgent)) - Authorized Specialty Diagnoses / Procedures Referred By Chaz vaz Referred To Contact Dermatology Diagnoses Skin lesion Libia Sanchez MD [address] [place] [id number] Referral ID Status Reason Start Date Expiration Date Visits Requested Visits Authorized [id number] Authorized Specialty Services Required 01/12/[phone] Encounter Details Date Type Department Care Team (Late st Contact Info) Description 03/04/2024 3:10 PM EDT Office Visit Dermatology, [facility]ay[facility] [address] [place] [address] [place] [address] Berna Mathis PA-C [address] [place] [address] Skin neoplasm* Allergies Active Allergy Reactions Criticality Noted Date Comments Adhesive Tape Medium 01/30/2022 Ibuprofen Hives 01/13/2012 Aspirin Hives,Rash 09/15/2000 Sulfamethoxazole-Trimeth oprim Nausea/vomiting,Othe r (Please comment) 10/27/2020 Dizziness Ciprofloxacin Hcl 06/16/2019 Hoarse, dizzy,disoriented Morphine 09/21/2021 Blacked out Penicillins Hives,Rash 09/15/2000 Prednisone 12/30/2017 Weakness/memory changes/blurred vision documented as of this encounter (statuses as of 03/04/2024) Medications Medication Sig Dispensed Refills Start Date [...] mouth in the morning. 08/08/2021 Active Nystatin 096249 UNIT/GM External Powder (Nystop)Indications: Lydia rash of [...] Tablet 3 07/08/2023 Active OneTouch Delica Plus [id number] :Type 2 diabetes mellitus with hemoglobin A1c goal of less than 8.0% ([facility]) Test up to two times daily or as directed by [facility] pharmacist 200 Each 3 07/11/2023 [...] this for 3 days. 6 Capsule 03/01/2024 Active Spironolactone 25 MG Oral Tablet (Aldactone)Indicatio ns:Non-ischemic cardiomyopathy (HCC) TAKE 1/2 TABLET BY MOUTH EVERY MORNING 45 Tablet 3 03/03/2024 Active documented as of this encounter (statuses as of 03/04/2024) Active Problems Problem Noted Date Diagnosed Date [...] as of this encounter (statuses as of 03/04/2024) Resolved Problems Problem Noted Date Diagnosed Date [...] as of this encounter (statuses as of 03/04/2024) Immunizations Name Administration Dates Next Due COVID-19 mRNA, LNP-s, No Pre serve, 2-Dose Series ([employer]) 08/29/2021,10/23/2020,10/02/2020 COVID-19, MRNA-LNP, 23-24, P F, 30 MCG/0.3 mL, 12 YRS AND ABOVE, IM ([employer] Agent[employer] access [employer]) 08/04/2023 Covid-19, Mrna, Lnp-s, Pf, B ivalent, 30 Mcg, IM, 12 yrs and above ([employer]) 08/02/2022 Pneumococcal Conjugate Vacc, 13 Valent (Prevnar) [...] as of this encounter Progress Notes * Berna Mathis PA-C - 03/04/2024 2:49 PM EDT 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, scaly and [...] than 8.0% ([facility]) Non-ischemic cardiomyopathy ([facility]) Heart failure, systolic, due to idiopathic cardiomyopathy ([facility]) Aortic valve stenosis 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, without long-term current use of insulin ([facility]) Lymphedema of both lower extremities Benign paroxysmal vertigo of both ears Gastroesophageal reflux disease without esophagitis Type 2 diabetes mellitus with mild nonproliferative diabetic retinopathy without macular edema, right eye ([facility]) 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 History of recurrent [...] needed. (Patient not taking: Reported on 10/22/2023) Xanofi w/Device Kit Use up to 4 times a day E11.9 1 Kit 0 Cyanocobalamin 1000 MCG Oral Tablet (Cyanocobalamin) Take 1 Tablet by mouth in the morning. Nystatin 777622 UNIT/GM External Powder (Nystop) Apply topically to [...] morning. 90 Tablet 3 OneTouch Delica Plus [id number] Test up to two times daily or as directed by [facility] pharmacist 200 Each 3 Estrogens Conjugated [...] to photos. Contact patient via cell phone ([employer]) Ok to leave results on message: Yes Patient Phone Numbers Applicable photos (if any) and chart reviewed by Dr. Paola Bowling The patient was encouraged to contact me with any further questions or concerns. 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 face, scaly and itchy documented in this encounter Plan of Treatment Upcoming Encounters Date Type Department Care Team (Late st Contact Info) Description 03/04/2024 5:30 PM EDT [facility] [address] [place] [address] Destiny Schultz RN [address] [place] [address] 03/30/2024 3:40 PM EDT Office Visit Family [address] [place] [phone] Verónica Benavides MD [address] [place] [address] [place] [address] 04/09/2024 2:30 PM EDT Home Visit [facility] at [facility] [address] [place] [address] Destiny Schultz RN [address] [place] [address] 04/21/2024 10:30 AM EDT Telemedicine Urology, [facility] [address] [place] [address] Chandler Pena MD [address] [place] [address] 11/24/2024 1:40 PM EDT Office Visit Dermatology [address] [place] [address] Sheryl Pena PA-C [address] [place] [address] [place] [address] Pending Results Name Type Priority Associated Diagnoses Date /Time SURGICAL PATHOLOGY Pathology Routine Skin neoplasm 03/04/2024 3:01 PM EDT Health Maintenance Due Date Last [...] Additional history exists CKD PHOS USE SMARTSET 12926 02/08/202401/23, 08/07/2021, 11/09/2019, Additional history exists TSH 03/25/2024 03/25/2023, 0710/2022, 10/28/2022, Additional history exists Influenza Vaccine (FLU shot) (#1) 2024 06/20/2022, 06/20/2022, 06/29/2021, Additional history exists CKD HGB USE SMARTSET 78206 05/26/202405/26, 05/26/2023, 04/07/2023, Additional history exists Pneumococcal [...] interpreted or resulted by a [facility] or [facility] contracted radiologist. 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
--- OUTSIDE RECORDS SUMMARY | 2024-04-24 11:15 | External Medical Summary | Summary of Care ---
Author Name Unknown Organization [facility] Address [address] [place] [address] Phone [phone] Care Team Providers Care Cloth Presser Name Role Phone Verónica Jiang MD Primary Care Provide r Reason for Visit * Reason Comments eRx-Medication Refill Encounter Details Date Type Department Care Team (Late st Contact Info) Description 03/03/2024 Refill [facility], [facility] [address] [place] [address] Marcela Evans PA-C [address] [place] [address] Non-ischemic cardiomyopathy (HCC) Allergies Active Allergy Reactions Criticality [...] mouth in the morning. 1 Active Nystatin 857556 UNIT/GM External Powder (Nystop)Indication s:Lydia rash of [...] XL)Indications:Non -ischemic cardiomyopathy (HCC),Coronary artery disease involving [place] coronary artery of [place] heart without angina pectoris,HTN, goal below 140/90 [...] current use of insulin ([facility]),Type 2 diabetes mellitus with hemoglobin A1c goal of less than 8.0% ([facility]) TEST UP TO FOUR TIMES DAILY 400 [...] Tablet 3 3 Active OneTouch Delica Plus [id number] ns:Type 2 diabetes mellitus with hemoglobin A1c goal of less than 8.0% (HCC) Test up to two times daily or as directed by [facility] pharmacist 200 Each 3 3 Active [...] If no improvement on day 3, contact [facility] for possible home visit 1 Each [...] at bedtime 3.5 g 3 4 Active Trulicity 0.75 MG/0.5ML Subcutaneous [...] 3 days. 6 Capsule 4 03/04/20 24 Active Spironolactone 25 MG Oral Tablet (Aldactone)Indicat ions:Non-ischemic cardiomyopathy (HCC) TAKE 1/2 TABLET BY MOUTH EVERY MORNING 45 Tablet 3 4 Active Spironolactone 25 MG Oral Tablet (Aldactone)Indicat ions:Non-ischemic cardiomyopathy (HCC) Take 0.5 Tablets by mouth in the morning. 45 Tablet 3 3 03/03/20 24 Discontinued documented as of this encounter [...] Continue synthroid Coronary artery disease invo lving sk[place] coronary artery of sk[place] heart without angina pectoris 07/03/2012 Overview: 60% [...] mRNA, LNP-s, No Pre serve, 2-Dose Series (Proxama) 08/29/2021,10/23/2020,10/02/2020 COVID-19, MRNA-LNP, 23-24, P F, 30 MCG/0.3 mL, 12 YRS AND ABOVE, IM ([facility]) 08/04/2023 Covid-19, Mrna, Lnp-s, Pf, B ivalent, 30 Mcg, IM, 12 yrs and above (Proxama) 08/02/2022 Pneumococcal Conjugate Vacc, 13 Valent (Prevnar) [...] Encounter - Verónica Jiang MD - 03/03/2024 10:29 AM EDT Signed Prescriptions: Disp Refills Spironolactone 25 MG Oral Tablet (Aldacton*45 Tab*3 Sig: TAKE 1/2 TABLET BY MOUTH EVERY MORNING Authorizing Provider: VERÓNICA JIANG * Telephone Encounter - Cindy Wilder LPN - 03/03/2024 10:24 AM EDT Did you pend patient's preferred pharmacy and medication before forwarding?yes Pharmacy: [facility], [address] [place] Pending Prescriptions: Disp Refills Spironolactone 25 MG Oral Tablet (Aldacto*45 Tab*3 Sig: TAKE 1/2 TABLET BY MOUTH EVERY MORNING Last Visit: 07/15/2019 (in office), 04/30/2023 (telemedicine) Next Visit: 03/04/2024 If no future appointments scheduled, and last appointment is greater than a year ago, please schedule patient for a follow-up appointment Last date the medication was ordered: 12/01/23 Is this request for a controlled substance?No Urine Drug Screen:No results found. However, due to the size of the patient record, not all encounters were searched. Please check Results Review for a complete set of results. Patient Phone Numbers Labs: Lab Results Component Value Date/Time CREAT 0.9 12/26/2023 08:56 AM CREAT 1.1 (H) 09/13/2020 12:57 PM POTASSIUM 4.0 12/26/2023 08:56 AM POTASSIUM 4.5 09/13/2020 12:57 PM TSH [...] 06/06/2020 11:14 AM * Telephone Encounter - Lima Andrade [facility] - 03/03/2024 9:40 AM EDT Pending Prescriptions: Disp Refills Spironolactone 25 MG Oral Tablet [Pharmacy*45 Tab*3 Sig: TAKE 1/2 TABLET BY MOUTH EVERY MORNING documented in this encounter Plan of Treatment Upcoming Encounters Date Type Department Care Team (Late st Contact Info) Description 03/04/2024 3:10 PM EDT Office Visit Dermatology, [facility] Zay[facility] [address] [place] [address] Berna Mathis PA-C [address] [place] [address] 03/04/2024 5:30 PM EDT [facility] [address] [place] [address] Destiny Schultz, RN [address] [place] [address] 03/30/2024 3:40 PM EDT Office Visit Family Medicine [address] [phone] Verónica Jiang MD [address] [place] [address] [place] [address] 04/09/2024 2:30 PM EDT [facility] Visit [facility] [address] [place] [address] Destiny Schultz, RN [address] [place] [address] 04/21/2024 10:30 AM EDT Telemedicine Urology, [facility] [address] [place] [address] Chandler Pena MD [address] [place] [address] 11/24/2024 1:40 PM EDT Office Visit Dermatology [address] [place] [address] Sheryl Pena PA-C [address] [place] [address] [place] [address] Health Maintenance Due Date Last Done Comments [...] Additional history exists CKD PHOS USE SMARTSET 20545 02/08/202401/23, 08/07/2021, 11/09/2019, Additional history exists TSH 03/25/2024 03/25/2023, 07/10/2022, 10/28/2022, Additional history exists Influenza Vaccine (FLU shot) (#1) 2024 06/20/2022, 06/20/2022, 06/29/2021, Additional history exists CKD HGB USE SMARTSET 95881 05/26/202405/26, 05/26/2023, 04/07/2023, Additional history exists Pneumococcal [...] Diagnosis Non-ischemic cardiomyopathy (HCC) Other primary cardiomyopathies documented in this encounter Advance Directives Documents on File Type Date Recorded 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
--- OUTSIDE RECORDS SUMMARY | 2024-04-24 11:15 | External Medical Summary | Summary of Care ---
Author Name Unknown Organization [facility] Address [address] [place] [address] Phone [phone] Care Team Providers Care Environmental Systems Coordinator Name Role Phone Verónica Benavides MD Primary Care Provide r Reason for Visit * Reason Onset Date Comments [facility]: Maintenance 02/29/2024 Encounter Details Date Type Department Care Team (Late st Contact Info) Description 02/29/2024 9:00 AM EDT Scheduled Telephone [facility], [facility] [address] [place] [address] [facility], Nurse [facility] [address] [place] [address] Allergies Active Allergy Reactions Criticality Noted Date Comments Adhesive Tape Medium 01/30/2022 Ibuprofen Hives 01/13/2012 Aspirin Hives,Rash 09/15/2000 Sulfamethoxazole-Trimeth oprim Nausea/vomiting,Othe r (Please comment) 10/27/2020 Dizziness Ciprofloxacin Hcl 06/16/2019 Hoarse, dizzy,disoriented Morphine 09/21/2021 Blacked out Penicillins Hives,Rash 09/15/2000 Prednisone 12/30/2017 Weakness/memory changes/blurred vision documented as of this encounter (statuses as of 02/29/2024) Medications Medication Sig Dispensed Refills Start Date [...] mouth in the morning. 08/08/2021 Active Nystatin 569990 UNIT/GM External Powder (Nystop)Indications: Lydia rash of [...] the morning. 45 Tablet 3 02/27/2023 Active Benzonatate 100 MG Oral Capsule [...] Tablet 3 07/08/2023 Active OneTouch Delica Plus [id number] :Type 2 diabetes mellitus with hemoglobin A1c goal of less than 8.0% ([facility]) Test up to two times daily or as directed by [facility] pharmacist 200 Each 3 07/11/2023 [...] 7 days. For 7 days. 14 Capsule 02/23/2024 4 Active documented as of this encounter (statuses as of 02/29/2024) Active Problems Problem Noted Date Diagnosed Date [...] as of this encounter (statuses as of 02/29/2024) Resolved Problems Problem Noted Date Diagnosed Date [...] as of this encounter (statuses as of 02/29/2024) Immunizations Name Administration Dates Next Due COVID-19 mRNA, LNP-s, No Pre serve, 2-Dose Series (Unocoin) 08/29/2021,10/23/2020,10/02/2020 COVID-19, MRNA-LNP, 23-24, P F, 30 MCG/0.3 mL, 12 YRS AND ABOVE, IM ([facility]) 08/04/2023 Covid-19, Mrna, Lnp-s, Pf, B ivalent, 30 Mcg, IM, 12 yrs and above ([employer]) 08/02/2022 Pneumococcal Conjugate Vacc, 13 Valent (Prevnar) [...] Telephone Encounter - Carol Portillo RN - 02/29/2024 10:26 AM EDT [facility] Telephonic Nurse Follow-Up Call [facility] Subprogram: Primary Care at Home Follow Up Call Type: Weekend Call Acute issue requiring follow-up call: Complicated UTI follow up on UTI sxs. Antibiotic to complete 03/01. is pt back to baseline? Objective: 02/20/2024 2:00 PM 02/20/2024 1:59 PM [...] needs identified Medications: New medication(s) added: Cefdinir 300 mg Subjective: Condition Status: [facility] Current Concerns: Left message requesting return call Disposition: Routed to [facility] and/or [facility] Home Care Team for further advice and Follow up call scheduled for tomorrow with [facility] Sound Ranging Crewmember Future Visits Scheduled: Future Appointments-next 60 days Date/Time Provider Specialty Dept Phone 03/04/2024 3:10 PM (Arrive by 2:55 PM) Berna Mathis PA-C Dermatology [phone] 03/04/2024 5:30 PM Destiny Schultz RN [facility] [phone] 03/30/2024 3:40 PM (Arrive by 3:25 PM) Verónica Benavides MD Family Medicine [phone] 04/09/2024 2:30 PM Destiny Schultz RN [facility] [phone] 04/21/2024 10:30 AM Chandler Pena MD Urology [phone] 11/24/2024 1:40 PM (Arrive by 1:25 PM) Sheryl Pena PA-C Dermatology [phone] Carol Portillo RN documented in this encounter Plan of Treatment Upcoming Encounters Date Type Department Care Team (Late st Contact Info) Description 03/01/2024 10:45 AM EDT Scheduled Telephone [facility], [facility] [address] [place] [address] Coordinator, [facility] [address] [place] [address] 03/04/2024 3:10 PM EDT Office [place] [address] [place] [address] Berna Mathis PA-C [address] [place] [address] 03/04/2024 5:30 PM EDT Home Visit [facility], [facility] 132 [facility] [place] [address] Destiny Schultz RN [address] [place] [address] 03/30/2024 3:40 PM EDT Office Visit Family Medicine [address] [place] [phone] Verónica Benavides MD [address] [place] [address] [place] [address] 04/09/2024 2:30 PM EDT Home Visit [facility] [address] [place] [address] Destiny Schultz RN [address] [place] [address] 04/21/2024 10:30 AM EDT Telemedicine Urology, [facility] [address] [place] [address] Chandler Pena MD [address] [place] [address] 11/24/2024 1:40 PM EDT Office Visit Dermatology [address] [place] [address] Sheryl Pena PA-C [address] [place] [address] [place] [address] Health Maintenance Due Date Last Done Comments [...] Additional history exists CKD PHOS USE SMARTSET 05161 02/08/202401/23, 08/07/2021, 11/09/2019, Additional history exists TSH 03/25/2024 03/25/2023, 07/0 10/2022, 10/28/2022, Additional history exists Influenza Vaccine (FLU shot) (#1) 2024 06/20/2022, 06/20/2022, 06/29/2021, Additional history exists CKD HGB USE SMARTSET 80403 05/26/202405/26, 05/26/2023, 04/07/2023, Additional history exists Pneumococcal [...] Documents on File Type Date Recorded Patient Education Courses Sales Representative Expl anation Advance Directives and Living Will 08/10/2021 ADVANCE DIRECTIVE / LIVING WILL LIVING WILL Healthcare Agents on File Name Relationship Healthcare Agent [facility] Communication Josselyn Judd Adult Child Health Care Power of Attor nathalie Care Teams Environmental Systems Coordinator Relationship Specialty Start Date End Date Verónica Benavides MD [address] [place] [address] [place] [phone] PCP - General Family Medicine 09/16/14 documented as of this encounter
--- OUTSIDE RECORDS SUMMARY | 2024-04-24 11:15 | External Medical Summary | Summary of Care ---
Author Name Unknown Organization [facility] Address [address] [place] [address] Phone [phone] Care Team Providers Care Ironer Name Role Phone Verónica Benavides MD Primary Care Provide r Reason for Visit * Reason Onset Date Comments [facility]: Maintenance 02/24/2024 Encounter Details Date Type Department Care Team (Late st Contact Info) Description 02/24/2024 1:45 PM EDT Scheduled Telephone [facility], [facility] 132 [facility] [place] [address] Coordinator, [facility] 132 [facility] [place] [address] Allergies Active Allergy Reactions Criticality Noted Date Comments Adhesive Tape Medium 01/30/2022 Ibuprofen Hives 01/13/2012 Aspirin Hives,Rash 09/15/2000 Sulfamethoxazole-Trimeth oprim Nausea/vomiting,Othe r (Please comment) 10/27/2020 Dizziness Ciprofloxacin Hcl 06/16/2019 Hoarse, dizzy,disoriented Morphine 09/21/2021 Blacked out Penicillins Hives,Rash 09/15/2000 Prednisone 12/30/2017 Weakness/memory changes/blurred vision documented as of this encounter (statuses as of 02/24/2024) Medications Medication Sig Dispensed Refills Start Date [...] mouth in the morning. 08/08/2021 Active Nystatin 647736 UNIT/GM External Powder (Nystop)Indications: Lydia rash of [...] XL)Indications:Non-i schemic cardiomyopathy (HCC),Coronary artery disease involving [place] coronary artery of [place] heart without angina pectoris,HTN, goal below 140/90 [...] Tablet 3 07/08/2023 Active OneTouch Delica Plus [id number] :Type 2 diabetes mellitus with hemoglobin A1c goal of less than 8.0% ([facility]) Test up to two times daily or as directed by [facility] pharmacist 200 Each 3 07/11/2023 [...] If no improvement on day 3, contact [facility] for possible home visit 1 Each [...] directed by clinician. 5 Tablet 02/11/2024 Active Nitrofurantoin Monohyd Macro 100 MG Oral Capsule (Macrobid) Take 1 Capsule by mouth in the morning for 5 days. With food until gone. 5 Capsule 02/22/2024 4 Active Cefdinir 300 MG Oral Capsule (Omnicef) Take 1 Capsule by mouth in the morning and 1 Capsule before bedtime. Do all this for 7 days. For 7 days. 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 Last Assessment & Plan: [facility] Triage Call: Reviewed last C&S [...] Continue synthroid Coronary artery disease invo lving [place] coronary artery of [place] heart without angina pectoris 07/03/2012 Overview: 60% [...] as of this encounter (statuses as of 02/24/2024) Resolved Problems Problem Noted Date Diagnosed Date [...] as of this encounter (statuses as of 02/24/2024) Immunizations Name Administration Dates Next Due COVID-19 mRNA, LNP-s, No Pre serve, 2-Dose Series ([employer]) 08/29/2021,10/23/2020,10/02/2020 COVID-19, MRNA-LNP, 23-24, P F, 30 MCG/0.3 mL, 12 YRS AND ABOVE, IM ([facility]) 08/04/2023 Covid-19, Mrna, Lnp-s, Pf, B ivalent, 30 Mcg, IM, 12 yrs and above ([employer]) 08/02/2022 Pneumococcal Conjugate Vacc, 13 Valent (Prevnar) [...] Telephone Encounter - Janiya Cárdenas RN - 02/24/2024 10:51 AM EDT [facility] Telephonic Nurse Follow-Up Call [facility] Subprogram: Primary Care at Home Follow Up Call Type: Routine follow up call / Status Check Acute issue requiring follow-up call: Other: UTI follow up Objective: 02/20/2024 2:00 PM 02/20/2024 1:59 PM [...] Medications: New medication(s) added: Cefdinir 300 mg Medication(s) discontinued: macrobid dc due to sensitivity report Subjective: Condition Status: No change in symptoms Current Concerns: Spoke to Josselyn. No improvement yet in pt's symptoms. Only has had 2 doses of abx since change yesterday in RX. Pt continues to be fatigued. Shaky and weak in legs. Daughter denies fever or chills. Denies blood in urine. Urine remains cloudy. Josselyn states that last UTI it took 4 days for abx to kick in. Disposition: Follow up call scheduled for tomorrow with [facility] Mediator Future Visits Scheduled: Future Appointments-next 60 days Date/Time Provider Specialty Dept Phone 02/24/2024 1:45 PM CoordinatorLise [facility] [phone] 02/25/2024 10:45 AM Lise [facility] [phone] 03/04/2024 3:10 PM (Arrive by 2:55 PM) Berna Mathis PA-C Dermatology [phone] 03/04/2024 5:30 PM Destiny Schultz RN [facility] [phone] 03/30/2024 3:40 PM (Arrive by 3:25 PM) Verónica Benavides MD Family Medicine [phone] 04/09/2024 2:30 PM Destiny Schultz RN [facility] [phone] 04/21/2024 10:30 AM Chandler Pena MD Urology [phone] 11/24/2024 1:40 PM (Arrive by 1:25 PM) Sheryl Pena PA-C Dermatology [phone] Janiya Cárdenas, POPPY documented in this encounter Plan of Treatment Upcoming Encounters Date Type Department Care Team (Late st Contact Info) Description 02/25/2024 10:45 AM EDT Scheduled Telephone [facility] [place], [address] [place] [address] Coordinator, [facility] [address] [place] [address] 03/04/2024 3:10 PM EDT Office Visit Dermatology, Gladis VargasJhon [address] [place] [address] Berna Mathis PA-C [address] [place] [address] 03/04/2024 5:30 PM EDT [facility] Visit [facility], [facility] [address] [place] [address] Destiny Schultz RN [address] [place] [address] 03/30/2024 3:40 PM EDT Office Visit Family Medicine [address] [phone] Verónica Benavides MD [address] [place] [address] [place] [address] 04/09/2024 2:30 PM EDT [facility] Visit [facility] [place], [facility] [address] [address] Destiny Schultz RN [address] [place] [address] 04/21/2024 10:30 AM EDT Telemedicine Urology, [facility] [address] [place] [address] Chandler Pena MD [address] [place] [address] 11/24/2024 1:40 PM EDT Office Visit Dermatology [address] [place] [address] Sheryl Pena PA-C [address] [place] [address] [place] [address] Health Maintenance Due Date Last Done Comments [...] Additional history exists CKD PHOS USE SMARTSET 78832 02/08/202401/23, 08/07/2021, 11/09/2019, Additional history exists TSH 03/25/2024 03/25/2023, 07/0 10/2022, 10/28/2022, Additional history exists Influenza Vaccine (FLU shot) (#1) 2024 06/20/2022, 06/20/2022, 06/29/2021, Additional history exists CKD HGB USE SMARTSET 70586 05/26/202405/26, 05/26/2023, 04/07/2023, Additional history exists Pneumococcal [...] Documents on File Type Date Recorded 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
--- OUTSIDE RECORDS SUMMARY | 2024-04-24 11:15 | External Medical Summary | Summary of Care ---
Author Name Unknown Organization [facility] Address [address] [place] [address] Phone [phone] Care Team Providers Care Dredge Pipe Operator Name Role Phone Verónica Benavides MD Primary Care Provide r Reason for Visit * Reason Onset Date Comments Health Maintenance 03/02/2024 Encounter Details Date Type Department Care Team (Late st Contact Info) Description 03/02/2024 Telephone Family [address] [phone] Verónica Benavides MD [address] [place] [address] [place] [address] Health Maintenance Allergies Active Allergy Reactions Criticality Noted Date Comments Adhesive Tape Medium 01/30/2022 Ibuprofen Hives 01/13/2012 Aspirin Hives,Rash 09/15/2000 Sulfamethoxazole-Trimeth oprim Nausea/vomiting,Othe r (Please comment) 10/27/2020 Dizziness Ciprofloxacin Hcl 06/16/2019 Hoarse, dizzy,disoriented Morphine 09/21/2021 Blacked out Penicillins Hives,Rash 09/15/2000 Prednisone 12/30/2017 Weakness/memory changes/blurred vision documented as of this encounter (statuses as of 03/02/2024) Medications Medication Sig Dispensed Refills Start Date [...] mouth in the morning. 08/08/2021 Active Nystatin 851154 UNIT/GM External Powder (Nystop)Indications: Lydia rash of [...] XL)Indications:Non-i schemic cardiomyopathy (HCC),Coronary artery disease involving [place] coronary artery of [place] heart without angina pectoris,HTN, goal below 140/90 [...] Tablet 3 07/08/2023 Active OneTouch Delica Plus [id number] :Type 2 diabetes mellitus with hemoglobin A1c [...] If no improvement on day 3, contact 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 Triage Call: Reviewed last C&S [...] Continue synthroid Coronary artery disease invo lving qagan [place] coronary artery of qagan [place] heart without angina pectoris 07/03/2012 Overview: 60% [...] as of this encounter (statuses as of 03/02/2024) Resolved Problems Problem Noted Date Diagnosed Date [...] as of this encounter (statuses as of 03/02/2024) Immunizations Name Administration Dates Next Due COVID-19 mRNA, LNP-s, No Pre serve, 2-Dose Series ([employer]) 08/29/2021,10/23/2020,10/02/2020 COVID-19, MRNA-LNP, 23-24, P F, 30 MCG/0.3 mL, 12 YRS AND ABOVE, IM ([facility]) 08/04/2023 Covid-19, Mrna, Lnp-s, Pf, B ivalent, [...] encounter Miscellaneous Notes * Telephone Encounter - Marleny CunninghamCHANDRIKA - 03/02/2024 8:44 AM EDT Care Gaps Comprehensive Care Outreach Last Office/Telemedicine Visit: 12/05/2022 (in office), 12/22/2023 (telemedicine) Next Office Visit: 03/30/2024 Hemoglobin AIC Results: Lab Results Component Value Date/Time HEMOGLOBIN A1C - [facility] 9.6 (H) 02/11/2023 01:40 PM HEMOGLOBIN A1C - [facility] 7.6 (H) 11/01/2022 06:18 AM HEMOGLOBIN A1C - [facility] 6.9 (H) 01/11/2022 08:25 AM HEMOGLOBIN A1C - [facility] 6.4 (H) 06/06/2020 11:14 AM HEMOGLOBIN A1C - [facility] 6.5 (H) 11/09/2019 03:52 PM HEMOGLOBIN A1C - [facility] 6.2 (H) 07/09/2019 03:08 PM BP Readings from Last 1 Encounters: 02/20/24 136/68 Reviewed Health Maintenance below: Health Maintenance Topic Date Due Zoster Vaccines (1 of 2) Never done DXA Scan 04/02/2020 Depression Screening 05/24/2020 Diabetic Foot Exam 11/08/2020 HbA1c 08/13/2023 DTaP,Tdap,and Td Vaccines (2 - Td or Tdap) 11/16/2023 COVID-19 Vaccine ( season) 2023 Diabetic Eye Exam 12/22/2023 Albumin/Creatinine Ratio 02/08/2024 CKD PHOS USE SMARTSET 66969 02/08/2024 TSH 03/25/2024 Labs Eye Care Gap Outreach Action Taken: Left message documented in this encounter Plan of Treatment Upcoming Encounters Date Type Department Care Team (Late st Contact Info) Description 03/04/2024 3:10 PM EDT Office Visit Dermatology, Jhon Zayas [address] [place] [address] [place] [address] Berna Mathis PA-C [address] [place] [address] 03/04/2024 5:30 PM EDT Home Visit [facility] [address] [place] [address] Destiny Schultz, RN [address] [place] [address] 03/30/2024 3:40 PM EDT Office Visit Family Medicine [address] [phone] Verónica Benavides MD [address] [place] [address] [place] [address] 04/09/2024 2:30 PM EDT Home Visit [facility] [address] [place] [address] Destiny Schultz, RN [address] [place] [address] 04/21/2024 10:30 AM EDT Telemedicine Urology, [facility] [address] [place] [address] Chandler Pena MD [address] [place] [address] 11/24/2024 1:40 PM EDT Office Visit Dermatology [address] [place] [address] Sheryl Pena PA-C [address] [place] [address] [place] [address] Health Maintenance Due Date Last Done Comments [...] Additional history exists CKD PHOS USE SMARTSET 17614 02/08/202401/23, 08/07/2021, 11/09/2019, Additional history exists TSH 03/25/2024 03/25/2023, 07/0 10/2022, 10/28/2022, Additional history exists Influenza Vaccine (FLU shot) (#1) 2024 06/20/2022, 06/20/2022, 06/29/2021, Additional history exists CKD HGB USE SMARTSET 66660 05/26/202405/26, 05/26/2023, 04/07/2023, Additional history exists Pneumococcal [...] Documents on File Type Date Recorded 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
--- OUTSIDE RECORDS SUMMARY | 2024-04-24 11:15 | External Medical Summary | Summary of Care ---
Author Name Unknown Organization [facility] Address [address] [place] [address] Phone [phone] Care Team Providers Care Bead Flipper Name Role Phone Verónica Benavides MD Primary Care Provide r Reason for Visit * Reason Onset Date Comments [facility]: Maintenance 03/01/2024 Encounter Details Date Type Department Care Team (Late st Contact Info) Description 03/01/2024 10:45 AM EDT Scheduled Telephone [facility], [facility] 132 [facility] [place] [address] Coordinator, [facility] [place] [address] Allergies Active Allergy Reactions Criticality Noted Date Comments Adhesive Tape Medium 01/30/2022 Ibuprofen Hives 01/13/2012 Aspirin Hives,Rash 09/15/2000 Sulfamethoxazole-Trimeth oprim Nausea/vomiting,Othe r (Please comment) 10/27/2020 Dizziness Ciprofloxacin Hcl 06/16/2019 Hoarse, dizzy,disoriented Morphine 09/21/2021 Blacked out Penicillins Hives,Rash 09/15/2000 Prednisone 12/30/2017 Weakness/memory changes/blurred vision documented as of this encounter (statuses as of 03/01/2024) Medications Medication Sig Dispensed Refills Start Date [...] mouth in the morning. 08/08/2021 Active Nystatin 882216 UNIT/GM External Powder (Nystop)Indications :Lydia rash of [...] XL)Indications:Non- ischemic cardiomyopathy (HCC),Coronary artery disease involving [place] coronary [...] Tablet 3 07/08/2023 Active OneTouch Delica Plus [id number] s:Type 2 diabetes mellitus with hemoglobin A1c goal of less than 8.0% ([facility]) Test up to two times daily or as directed by [facility] pharmacist 200 Each 3 [...] this for 3 days. 6 Capsule 03/01/2024 03/04/20 24 Active Cefdinir 300 MG Oral Capsule (Omnicef) Take 1 Capsule by mouth in the morning and 1 Capsule before bedtime. Do all this for 7 days. For 7 days. 14 Capsule 02/23/2024 03/01/20 24 Discontinu ed(Refill) documented as of this encounter (statuses as of 03/01/2024) Active Problems Problem Noted Date Diagnosed Date [...] as of this encounter (statuses as of 03/01/2024) Resolved Problems Problem Noted Date Diagnosed Date [...] as of this encounter (statuses as of 03/01/2024) Immunizations Name Administration Dates Next Due COVID-19 mRNA, LNP-s, No Pre serve, 2-Dose Series ([employer]) 08/29/2021,10/23/2020,10/02/2020 COVID-19, MRNA-LNP, 23-24, P F, 30 MCG/0.3 mL, 12 YRS AND ABOVE, IM ([facility]) 08/04/2023 Covid-19, Mrna, Lnp-s, Pf, B ivalent, 30 Mcg, IM, 12 yrs and above ([employer]) 08/02/2022 Pneumococcal Conjugate Vacc, 13 Valent (Prevnar) [...] Telephone Encounter - Carol Portillo RN - 03/01/2024 12:26 PM EDT Phone call to daughter to make her aware of antibiotic being extended for 3 more days, very appreciative. KATY Lynn Auto Body Worker [facility] * Telephone Encounter - Mak Chaudhari DO - 03/01/2024 12:14 PM EDT [facility] Prabhakar Galvez Subprogram: Primary Care at Home Recommendations: OK to extend additional 3 days for a total of 10 days Orders: Plan Cefdinir 300 MG Oral Capsule (Omnicef) To Do: Please see below for follow up items to be completed and correspondence: FYI to Regla's Care Team document control assistant Pool please work on the following: contact the caller with advice and orders as above Mak Chaudhari DO [facility] - [facility] 03/01/2024 Scheduled appointments in the next 60 days: Future Appointments-next 60 days Date/Time Provider Specialty Dept Phone 03/04/2024 3:10 PM (Arrive by 2:55 PM) Berna Mathis PA-C Dermatology [phone] 03/04/2024 5:30 PM Destiny Schultz RN [facility] [phone] 03/30/2024 3:40 PM (Arrive by 3:25 PM) Verónica Benavides MD Family Medicine [phone] 04/09/2024 2:30 PM Destiny Schultz RN [facility] [phone] 04/21/2024 10:30 AM Chandler Pena MD Urology [phone] 11/24/2024 1:40 PM (Arrive by 1:25 PM) Sheryl Pena PA-C Dermatology [phone] * Telephone Encounter - Carol Portillo RN - 03/01/2024 11:33 AM EDT [facility] Telephonic Nurse Follow-Up Call Beth [...] added: Cefdinir 300 mg Subjective: Condition Status: Improvement in symptoms but not at baseline Current Concerns: Spoke with daughter, reports she is doing so much better this morning, confusion is resolving, urine is clear, still has slight odor to it, no fever/chills last night. Is staying hydrated, is eating,slept well last night no sweats overnight Daughter concerned that she may need the antibiotic extended for a few more days as her confusion just started to clear up Disposition: Routed to [facility] and/or [facility] at Home Care Team for further advice Future Visits Scheduled: Future Appointments-next 60 days Date/Time Provider Specialty Dept Phone 03/04/2024 3:10 PM (Arrive by 2:55 PM) Berna Mathis PA-C Dermatology [phone] 03/04/2024 5:30 PM Destiny Schultz RN [facility] [phone] 03/30/2024 3:40 PM (Arrive by 3:25 PM) Verónica Benavides MD Family Medicine [phone] 04/09/2024 2:30 PM Destiny Schultz RN [facility] [phone] 04/21/2024 10:30 AM Chandler Pena MD Urology [phone] 11/24/2024 1:40 PM (Arrive by 1:25 PM) Sheryl Pena PA-C Dermatology [phone] Carol Portillo RN documented in this encounter Plan of Treatment Upcoming Encounters Date Type Department Care Team (Late st Contact Info) Description 03/04/2024 3:10 PM EDT [place] [address] [place] [address] [place] [address] Berna Mathis PA-C [address] [place] [address] 03/04/2024 5:30 PM EDT [facility] Visit [facility], [facility] [address] [facility] [place] [address] Destiny Schultz RN [address] [place] [address] 03/30/2024 3:40 PM EDT Office Visit Family Medicine [address] [place] [phone] Verónica Benavides MD [address] [place] [address] [place] [address] 04/09/2024 2:30 PM EDT [facility] Visit [facility] [address] [place] [address] Destiny Schultz RN 132 [facility] [place] [address] 04/21/2024 10:30 AM EDT Telemedicine Urology, [facility] [place] [address] Chandler Pena MD [address] [place] [address] 11/24/2024 1:40 PM EDT Office Visit Dermatology [address] [place] [address] Sheryl Pena PA-C [address] [place] [address] [place] [address] Health Maintenance Due Date Last Done Comments [...] Additional history exists CKD PHOS USE SMARTSET 01976 02/08/202401/23, 08/07/2021, 11/09/2019, Additional history exists TSH 03/25/2024 03/25/2023, 07/0 10/2022, 10/28/2022, Additional history exists Influenza Vaccine (FLU shot) (#1) 2024 06/20/2022, 06/20/2022, 06/29/2021, Additional history exists CKD HGB USE SMARTSET 69514 05/26/202405/26, 05/26/2023, 04/07/2023, Additional history exists Pneumococcal [...] Documents on File Type Date Recorded 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
--- OUTSIDE RECORDS SUMMARY | 2024-04-24 11:15 | External Medical Summary | Summary of Care ---
Author Name Unknown Organization [facility] Address [address] [place] [address] Phone [phone] Care Team Providers Care Eeg Technologist Name Role Phone Verónica Benavides MD Primary Care Provide r Reason for Visit * Reason Onset Date Comments [facility]: Maintenance 02/23/2024 Encounter Details Date Type Department Care Team (Late st Contact Info) Description 02/23/2024 1:30 PM EDT Scheduled Telephone [facility], [facility] 132 [facility] [place] [address] Coordinator, [facility] 132 [facility] [place] [address] Allergies Active Allergy Reactions Criticality Noted Date Comments Adhesive Tape Medium 01/30/2022 Ibuprofen Hives 01/13/2012 Aspirin Hives,Rash 09/15/2000 Sulfamethoxazole-Trimeth oprim Nausea/vomiting,Othe r (Please comment) 10/27/2020 Dizziness Ciprofloxacin Hcl 06/16/2019 Hoarse, dizzy,disoriented Morphine 09/21/2021 Blacked out Penicillins Hives,Rash 09/15/2000 Prednisone 12/30/2017 Weakness/memory changes/blurred vision documented as of this encounter (statuses as of 02/23/2024) Medications Medication Sig Dispensed Refills Start Date [...] mouth in the morning. 08/08/2021 Active Nystatin 792875 UNIT/GM External Powder (Nystop)Indications: Lydia rash of [...] XL)Indications:Non-i schemic cardiomyopathy (HCC),Coronary artery disease involving [place] coronary artery of [place] heart without angina pectoris,HTN, goal below 140/90 [...] disease, without long-term current use of insulin ([facility]),Type 2 diabetes mellitus with hemoglobin A1c goal of less than 8.0% ([facility]) TEST UP TO FOUR [...] Tablet 3 07/08/2023 Active OneTouch Delica Plus [id number] :Type 2 diabetes mellitus with hemoglobin A1c goal of less than 8.0% ([facility]) Test up to two times daily or as directed by [facility] pharmacist 200 Each 3 07/11/2023 Active Estrogens [...] improvement on day 3, contact [facility] for possible home visit 1 Each [...] as of this encounter (statuses as of 02/23/2024) Active Problems Problem Noted Date Diagnosed Date [...] 06/29/2021 Last Assessment & Plan: [facility] Triage Call: Reviewed last C&S - [...] Continue synthroid Coronary artery disease invo lving [place] coronary artery of [place] heart without angina pectoris 07/03/2012 Overview: 60% [...] as of this encounter (statuses as of 02/23/2024) Resolved Problems Problem Noted Date Diagnosed Date [...] as of this encounter (statuses as of 02/23/2024) Immunizations Name Administration Dates Next Due COVID-19 mRNA, LNP-s, No Pre serve, 2-Dose Series ([employer]) 08/29/2021,10/23/2020,10/02/2020 COVID-19, MRNA-LNP, 23-24, P F, 30 MCG/0.3 mL, 12 YRS AND ABOVE, IM ([facility]) 08/04/2023 Covid-19, Mrna, Lnp-s, Pf, B ivalent, 30 Mcg, IM, 12 yrs and above ([employer]) 08/02/2022 Influenza, Whole Virus 08/07/2000 Pneumococcal [...] Telephone Encounter - Janiya Cárdenas RN - 02/23/2024 2:53 PM EDT Call placed to the pt's daughter Josselyn. Made her aware of new RX for abx change due to sensitivity. Josselyn confirmed med sent to correct pharmacy. Verbalized understanding of such. FC calls scheduled for 24/48 hrs * Addendum Note - Karthikeyan Chaudhari DO - 02/23/2024 2:35 PM EDTAddended by: KARTHIKEYAN CHAUDHARI on: 02/23/2024 02:35 PM Modules accepted: Orders * Telephone Encounter - Karthikeyan Chaudhari DO - 02/23/2024 2:34 PM EDT [facility]abh[facility]ar [facility] Subprogram: Primary Care at Home Recommendations: Stop Macrodantin and start Cefdinir - has taken and tolerated in the past. Sent to [facility] if this is the right pharm s none was selected Orders: Plan Cefdinir 300 MG Oral Capsule (Omnicef) To Do: Please see below for follow up items to be completed and correspondence: laboratory aide Pool please work on the following: contact the caller with advice and orders as above Karthikeyan Chaudhari DO [facility] - [facility] 02/23/2024 Scheduled appointments in the next 60 days: Future Appointments-next 60 days Date/Time Provider Specialty Dept Phone 03/04/2024 3:10 PM (Arrive by 2:55 PM) Berna Mathis PA-C Dermatology [phone] 03/04/2024 5:30 PM Destiyn Schultz RN [facility] [phone] 03/30/2024 3:40 PM (Arrive by 3:25 PM) Verónica Benavides MD Family Medicine [phone] 04/09/2024 2:30 PM Destiny Schultz RN [facility] [phone] 04/21/2024 10:30 AM Chandler Pena MD Urology [phone] 11/24/2024 1:40 PM (Arrive by 1:25 PM) Sheryl Pena PA-C Dermatology [phone] * Telephone Encounter - Janiya Cárdenas RN - 02/23/2024 2:06 PM EDT Images from the original note were not included. [facility] Telephonic Nurse Follow-Up Call [facility] Subprogram: Primary Care at Home Follow [...] DME needs identified Medications: New medication(s) added: Nitrofurantoin 100 mg x 5 days Subjective: Condition Status: No change in symptoms Current Concerns: Spoke to daughter Josselyn. States that the pt has had no change in symptoms. Reports weakness to the legs, pt shaky, tired and confused. Denies fever, blood in urine or burning, urgency or frequency. Will forward sensitivity report [facility] to review for med sensitivity. Disposition: Routed to [facility] and/or [facility] at Home Care Team for further advice and Follow up call scheduled for tomorrow with [facility] Directory Carrier Future Visits Scheduled: Future Appointments-next 60 days Date/Time Provider Specialty Dept Phone 03/04/2024 3:10 PM (Arrive by 2:55 PM) Berna Mathis PA-C Dermatology [phone] 03/04/2024 5:30 PM Destiny Schultz RN [facility] [phone] 03/30/2024 3:40 PM (Arrive by 3:25 PM) Verónica Benavides MD Family Medicine [phone] 04/09/2024 2:30 PM Destiny Schultz RN [facility] [phone] 04/21/2024 10:30 AM Chandler Pena MD Urology [phone] 11/24/2024 1:40 PM (Arrive by 1:25 PM) Sheryl Pena PA-C Dermatology [phone] POPPY Gauthierally signed by Janiya Cárdenas RN at 02/23/2024 2:30 PM EDT documented in this encounter Plan of Treatment Upcoming Encounters Date Type Department Care Team (Late st Contact Info) Description 03/04/2024 3:10 PM EDT Office Visit Dermatology, Jhon Zayas [address] [place] [address] [place] [address] Berna Mathis PA-C [address] [place] [address] 03/04/2024 5:30 PM EDT [facility] Visit [facility] [place], [facility] [address] [place] [address] Destiny Schultz RN [address] [place] [address] 03/30/2024 3:40 PM EDT Office Visit Family Medicine [address] [phone] Verónica Benavides MD [address] [place] [address] [place] [address] 04/09/2024 2:30 PM EDT Home Visit [facility] [address] [place] [address] Destiny Schultz, POPPY [address] [place] [address] 04/21/2024 10:30 AM EDT Telemedicine Urology, [facility] [address] [place] [address] Chandler Pena MD [address] [place] [address] 11/24/2024 1:40 PM EDT Office Visit Dermatology [address] [place] [address] Sheryl Pena PA-C [address] [place] [address] [place] [address] Health Maintenance Due Date Last Done Comments [...] Additional history exists CKD PHOS USE SMARTSET 58089 02/08/202401/23, 08/07/2021, 11/09/2019, Additional history exists TSH 03/25/2024 03/25/2023, 07/0 10/2022, 10/28/2022, Additional history exists Influenza Vaccine (FLU shot) (#1) 2024 06/20/2022, 06/20/2022, 06/29/2021, Additional history exists CKD HGB USE SMARTSET 10074 05/26/202405/26, 05/26/2023, 04/07/2023, Additional history exists Pneumococcal [...] Documents on File Type Date Recorded Patient Developmental Therapist Expl anation Advance Directives and Living Will 08/10/2021 ADVANCE DIRECTIVE / LIVING WILL LIVING WILL Healthcare Agents on File Name Relationship Healthcare Agent [facility] p Communication Josselyn [facility] Health Care Power of Attor nathalie Care Teams Eeg Technologist Relationship Specialty Start Date End Date Verónica Benavides MD [address] [place] [address] [place] [address] PCP - General Family Medicine 09/16/14 documented as of this encounter
--- OUTSIDE RECORDS SUMMARY | 2024-04-24 11:15 | External Medical Summary | Summary of Care ---
Author Name Unknown Organization [facility] Address [address] [place] [address] Phone [phone] Care Team Providers Care Squad Boss Name Role Phone Verónica Benavides MD Primary Care Provide r Reason for Visit * Reason Onset Date Comments [facility]: Maintenance 02/23/2024 Encounter Details Date Type Department Care Team (Late st Contact Info) Description 02/23/2024 1:30 PM EDT Scheduled Telephone [facility], [facility] 132 [facility] [place] [address] Coordinator, [facility] 132 [facility] [place] [address] Allergies Active Allergy Reactions Criticality Noted Date [...] mouth in the morning. 08/08/2021 Active Nystatin 157606 UNIT/GM External Powder (Nystop)Indications: Lydia rash of [...] XL)Indications:Non-i schemic cardiomyopathy (HCC),Coronary artery disease involving [place] coronary artery of [place] heart without angina pectoris,HTN, goal below 140/90 [...] Tablet 3 07/08/2023 Active OneTouch Delica Plus [id number] :Type 2 diabetes mellitus with hemoglobin A1c goal of less than 8.0% ([facility]) Test up to two times daily or as directed by [facility] pharmacist 200 Each 3 07/11/2023 [...] Continue synthroid Coronary artery disease invo lving [place] coronary artery of [place] heart without angina pectoris 07/03/2012 Overview: 60% [...] mRNA, LNP-s, No Pre serve, 2-Dose Series (Netadmin) 08/29/2021,10/23/2020,10/02/2020 COVID-19, MRNA-LNP, 23-24, P F, 30 MCG/0.3 mL, 12 YRS AND ABOVE, IM ([facility] 08/04/2023 Covid-19, Mrna, Lnp-s, Pf, B ivalent, 30 Mcg, IM, 12 yrs and above (Netadmin) 08/02/2022 Influenza, Whole Virus 08/07/2000 Pneumococcal Conjugate [...] Reyna Subprogram: Primary Care at Home Recommendations: Stop Macrodantin and start Cefdinir - has taken and tolerated in the past. Sent to [facility] - Sra[facility] marquez if this is the right pharm s none was selected Orders: Plan Cefdinir 300 MG Oral Capsule (Omnicef) To Do: Please see below for follow up items to be completed and correspondence: reception manager Pool please work on the following: contact the caller with advice and orders as above Karthikeyan Chaudhari DO [facility] - [facility] 02/23/2024 Scheduled appointments in the next 60 days: Future Appointments-next 60 days Date/Time Provider Specialty Dept Phone 03/04/2024 3:10 PM (Arrive by 2:55 PM) Berna Mathis PA-C Dermatology [phone] 03/04/2024 5:30 PM Destiny Schultz RN [facility] [phone] 03/30/2024 3:40 PM (Arrive by 3:25 PM) Verónica Benavides MD Family Medicine [phone] 04/09/2024 2:30 PM Destiny Schultz RN [facility] [phone] 04/21/2024 10:30 AM Chandler Pena MD Urology [phone] 11/24/2024 1:40 PM (Arrive by 1:25 PM) Sheryl Pena PA-C Dermatology [phone] * Telephone Encounter - Janiya Cárdenas RN - 02/23/2024 2:06 PM EDT Images from the original note were not included. [facility] Telephonic Nurse Follow-Up Call [facility] Subprogram: Primary Care at [...] or frequency. Will forward sensitivity report to [facility] to review for med sensitivity. Disposition: Routed to [facility] and/or [facility] at Home Care Team for further advice and Follow up call scheduled for tomorrow with [facility] Drilling Machine Runner Future Visits Scheduled: Future Appointments-next 60 days Date/Time Provider Specialty Dept Phone 03/04/2024 3:10 PM (Arrive by 2:55 PM) Berna Mathis PA-C Dermatology [phone] 03/04/2024 5:30 PM Destiny Schultz RN [facility] [phone] 03/30/2024 3:40 PM (Arrive by 3:25 PM) Verónica Benavides MD Family Medicine [phone] 04/09/2024 2:30 PM Destiny Schultz RN [facility] [phone] 04/21/2024 10:30 AM Chandler Pena MD Urology [phone] 11/24/2024 1:40 PM (Arrive by 1:25 PM) Sheryl Pena PA-C Dermatology [phone] Janiya Cárdenas, POPPY documented in this encounter Plan of Treatment Upcoming Encounters Date Type Department Care Team (Late st Contact Info) Description 03/04/2024 3:10 PM EDT Office [place] [address] [place] [address] [place] [address] Berna Mathis PA-C [address] [place] [address] 03/04/2024 5:30 PM EDT Home Visit [facility], [facility] [address] [place] [address] Destiny Schultz, POPPY [address] [place] [address] 03/30/2024 3:40 PM EDT Office Visit Family Medicine [address] [place] [phone] Verónica Benavides MD [address] [place] [address] [place] [address] 04/09/2024 2:30 PM EDT Home Visit [facility], [facility] 132 [facility] [place] [address] Destiny Schultz RN [address] [place] [address] 04/21/2024 10:30 AM EDT Telemedicine Urology, [facility] [address] [place] [address] Chandler Pena MD [address] [place] [address] 11/24/2024 1:40 PM EDT Office Visit Dermatology [address] [place] [address] Sheryl Pena PA-C [address] [place] [address] [place] [address] Health Maintenance Due Date Last Done Comments [...] Additional history exists CKD PHOS USE SMARTSET 78350 02/08/202401/23, 08/07/2021, 11/09/2019, Additional history exists TSH 03/25/2024 03/25/2023, 07/10/2022, 10/28/2022, Additional history exists Influenza Vaccine (FLU shot) (#1) 2024 06/20/2022, 06/20/2022, 06/29/2021, Additional history exists CKD HGB USE SMARTSET 83206 05/26/202405/26, 05/26/2023, 04/07/2023, Additional history exists Pneumococcal [...] Documents on File Type Date Recorded 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
--- OUTSIDE RECORDS SUMMARY | 2024-04-24 11:15 | External Medical Summary | Summary of Care ---
Author Name Unknown Organization [facility] Address [address] [place] [address] Phone [phone] Care Team Providers Care Flanger Name Role Phone Verónica Benavides MD Primary Care Provide r Encounter Details Date Type Department Care Team (Late st Contact Info) Description 02/23/2024 Result Scan Unspecified Department Hermann Heredia, DO [address] [place] [address] <No scans attached> Allergies Active Allergy Reactions [...] mouth in the morning. 08/08/2021 Active Nystatin [id number] UNIT/GM External Powder (Nystop)Indications: Lydia rash of [...] XL)Indications:Non-i schemic cardiomyopathy (HCC),Coronary artery disease involving [place] coronary artery of [place] heart without angina pectoris,HTN, goal below 140/90 [...] Tablet 3 07/08/2023 Active OneTouch Delica Plus [id number] :Type 2 diabetes mellitus with hemoglobin A1c goal of less than 8.0% ([facility]) Test up to two times daily or as directed by [facility] pharmacist 200 Each 3 07/11/2023 Active [...] no improvement on day 3, contact [facility] for possible home visit 1 [...] carrier 06/29/2021 Last Assessment & Plan: [facility] Triage Call: Reviewed last C&S [...] Continue synthroid Coronary artery disease invo lving [place] coronary artery of [place] heart without angina pectoris 07/03/2012 Overview: 60% [...] mRNA, LNP-s, No Pre serve, 2-Dose Series (RapidMiner) 08/29/2021,10/23/2020,10/02/2020 COVID-19, MRNA-LNP, 23-24, P F, 30 MCG/0.3 mL, 12 YRS AND ABOVE, IM ([facility]) 08/04/2023 Covid-19, Mrna, Lnp-s, Pf, B ivalent, 30 Mcg, IM, 12 yrs and above (RapidMiner) 08/02/2022 Pneumococcal Conjugate Vacc, 13 Valent (Prevnar) [...] PM EDT Scheduled Telephone [facility], [address] [place] [address] Coordinator, [address] [place] [address] 02/25/2024 10:45 AM EDT Scheduled Telephone [facility] [address] [place] [address] Coordinator, [address] [place] [address] 03/04/2024 3:10 PM EDT Office Visit Dermatology, Jhon Zayas [address] [place] [address] [place] [address] Berna Mathis PA-C [address] [place] [address] 03/04/2024 5:30 PM EDT [facility] Visit [facility], [facility] [place] [address] Destiny Schultz, RN [address] [place] [address] 03/30/2024 3:40 PM EDT Office Visit Family Medicine [address] [place] [phone] Verónica Benavides MD [address] [place] [address] [place] [address] 04/09/2024 2:30 PM EDT Home Visit ising at [facility] [address] [place] [address] Destiny Schultz RN [address] [place] [address] 04/21/2024 10:30 AM EDT Telemedicine Urology, [facility] [address] [place] [address] Chandler Pena MD [address] [place] [address] 11/24/2024 1:40 PM EDT Office Visit Dermatology [address] [place] [address] Sheryl Pena PA-C [address] [place] [address] [place] [address] Health Maintenance Due Date Last Done Comments Zoster Vaccines (1 of 2) 1985 DXA Scan 04/02/2020 04/02/2017, 0511/2012, 11/05/2007 Depression Screening 05/24/2020 05/24/2019 Diabetic Foot Exam 11/08/2020 11/09/2019, 0 09/01/2018, 08/28/2017, Additional history exists HbA1c 08/13/2023 02/11/2023, 10/23, 01/11/2022, Additional history exists DTaP,Tdap,and Td Vaccines (2 - Td or Tdap) 11/16/2023 11/15/2013, 03/29/2008, 03/29/2008 COVID-19 Vaccine (6 - 2022- season) 2023 08/04/2023, 08/02/2022, 08/02/2022, Additional history exists Diabetic Eye Exam 12/22/2023 12/21/2022, , 03/10/2021, Additional history exists Albumin/Creatinine Ratio 02/08/2024 023, 01/18/2022, 12/23/2017, Additional history exists CKD PHOS USE SMARTSET 00068 02/08/202401/23, 08/07/2021, 11/09/2019, Additional history exists TSH 03/25/2024 03/25/2023, 10/2022, 10/28/2022, Additional history exists Influenza Vaccine (FLU shot) (#1) 2024 06/20/2022, 06/20/2022, 06/29/2021, Additional history exists CKD HGB USE SMARTSET 16169 05/26/202405/26, 05/26/2023, 04/07/2023, Additional history exists Pneumococcal [...] Date/Time Associated Diagnosis Comments CARDIOLOGY SCANNED RESULT 02/23/2024 documented in this encounter Results * CARDIOLOGY SCANNED RESULT (02/23/2024) 02/23/2024 Hermann Heredia DO OTHER documented in this encounter Advance Directives Documents on File Type Date Recorded 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
--- OUTSIDE RECORDS SUMMARY | 2024-04-24 11:15 | External Medical Summary | Summary of Care ---
Author Name Unknown Organization [facility] Address [address] [place] [address] Phone [phone] Care Team Providers Care Water Manager Name Role Phone Verónica Benavides MD Primary Care Provide r Reason for Visit * Reason Onset Date Comments [facility]: Maintenance 02/27/2024 Encounter Details Date Type Department Care Team (Late st Contact Info) Description 02/27/2024 9:45 AM EDT Scheduled Telephone [facility], [facility] 132 [facility] [place] [address] Coordinator, [facility] 132 [facility] [place] [address] Allergies Active Allergy Reactions Criticality Noted Date Comments Adhesive Tape Medium 01/30/2022 Ibuprofen Hives 01/13/2012 Aspirin Hives,Rash 09/15/2000 Sulfamethoxazole-Trimeth oprim Nausea/vomiting,Othe r (Please comment) 10/27/2020 Dizziness Ciprofloxacin Hcl 06/16/2019 Hoarse, dizzy,disoriented Morphine 09/21/2021 Blacked out Penicillins Hives,Rash 09/15/2000 Prednisone 12/30/2017 Weakness/memory changes/blurred vision documented as of this encounter (statuses as of 02/27/2024) Medications Medication Sig Dispensed Refills Start Date [...] mouth in the morning. 08/08/2021 Active Nystatin [id number] UNIT/GM External Powder (Nystop)Indications: Lydia rash of [...] XL)Indications:Non-i schemic cardiomyopathy (HCC),Coronary artery disease involving [place] coronary artery of [place] heart without angina pectoris,HTN, goal below [...] Tablet 3 07/08/2023 Active OneTouch Delica Plus [id number] :Type 2 diabetes mellitus with hemoglobin A1c [...] no improvement on day 3, contact [facility] for possible home visit 1 [...] as of this encounter (statuses as of 02/27/2024) Active Problems Problem Noted Date Diagnosed Date [...] carrier 06/29/2021 Last Assessment & Plan: [facility] Triage Call: Reviewed last C&S [...] Continue synthroid Coronary artery disease invo lving [place] coronary artery of [place] heart without angina pectoris 07/03/2012 Overview: [...] as of this encounter (statuses as of 02/27/2024) Resolved Problems Problem Noted Date Diagnosed Date [...] as of this encounter (statuses as of 02/27/2024) Immunizations Name Administration Dates Next Due COVID-19 mRNA, LNP-s, No Pre serve, 2-Dose Series (Slicebooks) 08/29/2021,10/23/2020,10/02/2020 COVID-19, MRNA-LNP, 23-24, P F, 30 MCG/0.3 mL, 12 YRS AND ABOVE, IM ([facility]) 08/04/2023 Covid-19, Mrna, Lnp-s, Pf, B ivalent, 30 Mcg, IM, 12 yrs and above (Slicebooks) 08/02/2022 Pneumococcal Conjugate Vacc, 13 Valent (Prevnar) [...] Telephone Encounter - Beth Bailon RN - 02/27/2024 9:41 AM EDT [facility]Up Call [facility] Subprogram: Primary Care at Home [...] due to sensitivity report Subjective: Condition Status: Improvement in symptoms but not at baseline Current Concerns: Spoke to Josselyn. States that patient is still weak and intermittently confused. Asking if for confusion, "could she be having mini strokes? Discussed signs of stroke could include unilateral weakness, numbness, facial droop, changes in vision, difficulty with or slurring speech, headaches. Daughter denies any of these symptoms. Emphasized that if pt having sxs of stroke to call 911. Daughter verbalizes understanding. Denies fever,chills, n/v , flank pain, hematuria. Pt on day 5 of 7 of antibiotics. Daughter feels pt is somewhat improved, but still not at baseline.Reinforced to push fluids up to daily limit of 64 oz, continue antibiotic until complete. Disposition: Weekend call scheduled Future Visits Scheduled: Future Appointments-next 60 days Date/Time Provider Specialty Dept Phone 02/24/2024 1:45 PM CoordinatorLise [facility] [phone] 02/25/2024 10:45 AM Coordinator, Lenny Ian Lepe [facility] [phone] 03/04/2024 3:10 PM (Arrive by 2:55 PM) Berna Mathis PA-C Dermatology [phone] 03/04/2024 5:30 PM Destiny Schultz RN [facility] [phone] 03/30/2024 3:40 PM (Arrive by 3:25 PM) Verónica Benavides MD Family Medicine [phone] 04/09/2024 2:30 PM Destiny Schultz RN [facility] [phone] 04/21/2024 10:30 AM Chandler Pena MD Urology [phone] 11/24/2024 1:40 PM (Arrive by 1:25 PM) Sheryl Pena PA-C Dermatology [phone] Beth Bailon RN 02/27/2024 12:18 PM documented in this encounter Plan of Treatment Upcoming Encounters Date Type Department Care Team (Late st Contact Info) Description 02/29/2024 9:00 AM EDT Scheduled Telephone [facility], [facility] [address] [place] [address] Region, Nurse [facility] [address] [place] [address] 03/04/2024 3:10 PM EDT Office Visit Dermatology, Jhon Zayas [address] [place] [address] [place] [address] Berna Mathis PA-C [address] [place] [address] 03/04/2024 5:30 PM EDT Home Visit [facility], [facility] [address] [place] [address] Destiny Schultz, POPPY [address] [place] [address] 03/30/2024 3:40 PM EDT Office Visit Family Medicine [address] [phone] Verónica Benavides MD [address] [place] [address] [place] [address] 04/09/2024 2:30 PM EDT Home Visit [facility], [facility] [address] [place] [address] Destiny Schultz, RN [address] [place] [address] 04/21/2024 10:30 AM EDT Telemedicine Urology, [facility] [address] [place] [address] Chandler Pena MD [address] [place] [address] 11/24/2024 1:40 PM EDT Office Visit Dermatology [address] [place] [address] Sheryl Pena PA-C [address] [place] [address] [place] [address] Health Maintenance Due Date Last Done Comments [...] Additional history exists CKD PHOS USE SMARTSET 33520 02/08/202401/23, 08/07/2021, 11/09/2019, Additional history exists TSH 03/25/2024 03/25/2023, 07/10/2022, 10/28/2022, Additional history exists Influenza Vaccine (FLU shot) (#1) 2024 06/20/2022, 06/20/2022, 06/29/2021, Additional history exists CKD HGB USE SMARTSET 43489 05/26/202405/26, 05/26/2023, 04/07/2023, Additional history exists Pneumococcal [...] Documents on File Type Date Recorded 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
--- OUTSIDE RECORDS SUMMARY | 2024-04-24 11:15 | External Medical Summary | Summary of Care ---
Author Name Unknown Organization [facility] Address [address] [place] [address] Phone [phone] Care Team Providers Care Chart Collector Name Role Phone Verónica Benavides MD Primary Care Provide r Reason for Visit * Reason Onset Date Comments [facility]: Maintenance 02/25/2024 Encounter Details Date Type Department Care Team (Late st Contact Info) Description 02/25/2024 10:45 AM EDT Scheduled Telephone [facility], [facility] [address] [facility] [place] [address] Coordinator, [facility] [address] [facility] [place] [address] Allergies Active Allergy Reactions Criticality Noted Date Comments Adhesive Tape Medium 01/30/2022 Ibuprofen Hives 01/13/2012 Aspirin Hives,Rash 09/15/2000 Sulfamethoxazole-Trimeth oprim Nausea/vomiting,Othe r (Please comment) 10/27/2020 Dizziness Ciprofloxacin Hcl 06/16/2019 Hoarse, dizzy,disoriented Morphine 09/21/2021 Blacked out Penicillins Hives,Rash 09/15/2000 Prednisone 12/30/2017 Weakness/memory changes/blurred vision documented as of this encounter (statuses as of 02/25/2024) Medications Medication Sig Dispensed Refills Start Date [...] mouth in the morning. 08/08/2021 Active Nystatin 226090 UNIT/GM External Powder (Nystop)Indications: Lydia rash of [...] XL)Indications:Non-i schemic cardiomyopathy (HCC),Coronary artery disease involving [place] coronary artery of [place] heart without angina pectoris,HTN, goal below 140/90 [...] Tablet 3 07/08/2023 Active OneTouch Delica Plus [id number] :Type 2 diabetes mellitus with hemoglobin A1c goal of less than 8.0% ([facility]) Test up to two times daily or as directed by [facility] pharmacist 200 Each 3 [...] as of this encounter (statuses as of 02/25/2024) Active Problems Problem Noted Date Diagnosed Date [...] Continue synthroid Coronary artery disease invo lving [place] coronary artery of guid[place] heart without angina pectoris 07/03/2012 Overview: 60% [...] as of this encounter (statuses as of 02/25/2024) Resolved Problems Problem Noted Date Diagnosed Date [...] as of this encounter (statuses as of 02/25/2024) Immunizations Name Administration Dates Next Due COVID-19 mRNA, LNP-s, No Pre serve, 2-Dose Series ([employer]) 08/29/2021,10/23/2020,10/02/2020 COVID-19, MRNA-LNP, 23-24, P F, 30 MCG/0.3 mL, 12 YRS AND ABOVE, IM ([facility]) 08/04/2023 Covid-19, Mrna, Lnp-s, Pf, B ivalent, 30 Mcg, IM, 12 yrs and above ([employer]) 08/02/2022 Pneumococcal Conjugate Vacc, 13 Valent (Prevnar) [...] Telephone Encounter - Beth Bailon RN - 02/25/2024 11:54 AM EDT [facility] Subprogram: Primary Care at Home [...] in symptoms Current Concerns: Spoke to Josselyn. States that patient is still weak and shaky, but she was able to get into the shower yesterday which was a slight improvement. Having some increased confusion from baseline in the evenings, but during the day seems clear. Daughter reports that patient is taking in her daily limit of fluids 1.5- 2L per day. Daughter denies fever or chills. No flank pain. Denies blood in urine. Urine remains cloudy. Josselyn states that last UTI it took 4-5 days for abx to kick in. Will add follow up call 02/26 to check status. Reinforced to call in the meantime if having fever, chills, flank pain, worsening confusion, lethargy. Disposition: Follow up call scheduled for tomorrow with CHANDRIKA LepeEvent Operations Manager Future Visits Scheduled: Future Appointments-next 60 days Date/Time Provider Specialty Dept Phone 02/24/2024 1:45 PM CoordinatorLise [facility] [phone] 02/25/2024 10:45 AM [facility] [phone] 03/04/2024 3:10 PM (Arrive by 2:55 PM) Berna Mathis PA-C Dermatology [phone] 03/04/2024 5:30 PM Destiny Schultz RN [facility] [phone] 03/30/2024 3:40 PM (Arrive by 3:25 PM) Verónica Benavides MD Family Medicine [phone] 04/09/2024 2:30 PM Destiny Schultz RN [facility] [phone] 04/21/2024 10:30 AM Chandler Pena MD Urology [phone] 11/24/2024 1:40 PM (Arrive by 1:25 PM) Sheryl Pena PA-C Dermatology [phone] Beth Bailon RN 02/25/2024 11:54 AM documented in this encounter Plan of Treatment Upcoming Encounters Date Type Department Care Team (Late st Contact Info) Description 02/27/2024 9:45 AM EDT Scheduled Telephone [facility], [facility] [address] [place] [address] Coordinator, [facility] [address] [place] [address] 03/04/2024 3:10 PM EDT Office Visit Dermatology, Jhon Zayas [address] [place] [address] [place] [address] Berna Mathis PA-C [address] [place] [address] 03/04/2024 5:30 PM EDT Home Visit [facility], [facility] [address] [place] [address] Destiny Schultz RN [address] [place] [address] 03/30/2024 3:40 PM EDT Office Visit Family [address] [place] [phone] Verónica Benavides MD [address] [place] [address] [place] [address] 04/09/2024 2:30 PM EDT [facility] Visit [facility], [facility] [address] [place] [address] Destiny Schultz, RN [address] [place] [address] 04/21/2024 10:30 AM EDT Telemedicine Urology, [facility] [address] [place] [address] Chandler Pena MD [address] [place] [address] 11/24/2024 1:40 PM EDT Office Visit Dermatology [address] [place] [address] Sheryl Pena PA-C [address] [place] [address] [place] [address] Health Maintenance Due Date Last Done Comments [...] Additional history exists CKD PHOS USE SMARTSET 97628 02/08/202401/23, 08/07/2021, 11/09/2019, Additional history exists TSH 03/25/2024 03/25/2023, 07/0 10/2022, 10/28/2022, Additional history exists Influenza Vaccine (FLU shot) (#1) 2024 06/20/2022, 06/20/2022, 06/29/2021, Additional history exists CKD HGB USE SMARTSET 06135 05/26/202405/26, 05/26/2023, 04/07/2023, Additional history exists Pneumococcal [...] on File Type Date Recorded 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
--- OUTSIDE RECORDS SUMMARY | 2024-04-24 11:16 | External Medical Summary | Summary of Care ---
Author Name Unknown Organization [facility] Address [address] [place] [address] Phone [phone] Care Team Providers Care Breaker Hand Name Role Phone Verónica Benavides MD Primary Care Provide r Reason for Visit * Reason Onset Date Comments Order Request 11/26/2023 DME Encounter Details Date Type Department Care Team (Late st Contact Info) Description 11/26/2023 Telephone Family [address] [phone] Verónica Benavides MD [address] [place], [place] [address] [address] Order Request (DME) Allergies Active Allergy Reactions Criticality Noted Date Comments Adhesive Tape Medium 01/30/2022 Ibuprofen Hives 01/13/2012 Aspirin Hives,Rash 09/15/2000 Sulfamethoxazole-Trimeth oprim Nausea/vomiting,Othe r (Please comment) 10/27/2020 Dizziness Ciprofloxacin Hcl 06/16/2019 Hoarse, dizzy,disoriented Morphine 09/21/2021 Blacked out Penicillins Hives,Rash 09/15/2000 Prednisone 12/30/2017 Weakness/memory changes/blurred vision documented as of this encounter (statuses as of 02/16/2024) Medications Medication Sig Dispensed Refills Start Date [...] mouth in the morning. 1 Active Nystatin 750665 UNIT/GM External Powder (Nystop)Indication s:Lydia rash of [...] XL)Indications:Non -ischemic cardiomyopathy (HCC),Coronary artery disease involving [place] coronary artery of [place] heart without angina pectoris,HTN, goal below 140/90 Take 1 Tablet by mouth every evening. 90 Tablet 11 3 Active Spironolactone 25 MG Oral Tablet (Aldactone)Indicat ions:Non-ischemic cardiomyopathy (HCC) Take 0.5 Tablets by mouth in the morning. 45 Tablet 3 3 Active Benzonatate 100 MG Oral Capsule [...] Tablet 3 3 Active OneTouch Delica Plus [id number] ns:Type 2 diabetes mellitus with hemoglobin A1c goal of less than 8.0% ([facility]) Test up to two times daily or as directed by [facility] pharmacist 200 Each 3 3 Active [...] evening meals. 180 Tablet 1 4 Active metOLazone 2.5 MG Oral Tablet (Zaroxolyn) Take one tablet only when directed by clinician. 5 Tablet 3 024 Discontinued Ondansetron HCl 4 MG Oral Tablet Take 1 Tablet by mouth every 6 hours as needed for Nausea. 30 Tablet 3 024 Discontinued(Re fill) Fosfomycin Tromethamine 3 GM Oral Packet (Monurol)Indicatio ns:Complicated UTI (urinary tract infection) Take 3 g by mouth every 3 days. 3 Packet 3 024 Discontinued(Pa tient preference/disc ontinuation) Omeprazole 20 MG Oral Capsule Delayed Release (PriLOSEC) TAKE ONE CAPSULE BY MOUTH EVERY DAY, ONE hour BEFORE THE first meal of THE DAY 90 Capsule 1 3 024 Discontinued(Re fill) Nitrofurantoin Monohyd Macro 100 MG Oral Capsule (Macrobid) Take 1 Capsule by mouth at bedtime. With food. 90 Capsule 3 4 024 Discontinued(Pa tient preference/disc ontinuation) Trulicity 0.75 MG/0.5ML Subcutaneous Solution Pen-injector (Dulaglutide) Inject 0.75 mg under the skin once a week. 2 mL 3 4 024 Discontinued documented as of this encounter (statuses as of 02/16/2024) Active Problems Problem Noted Date Diagnosed Date [...] Continue synthroid Coronary artery disease invo lving [place] coronary artery of [place] heart without angina pectoris 07/03/2012 Overview: 60% [...] as of this encounter (statuses as of 02/16/2024) Resolved Problems Problem Noted Date Diagnosed Date [...] as of this encounter (statuses as of 02/16/2024) Immunizations Name Administration Dates Next Due COVID-19 mRNA, LNP-s, No Pre serve, 2-Dose Series ([employer]) 08/29/2021,10/23/2020,10/02/2020 COVID-19, MRNA-LNP, 23-24, P F, 30 [...] Telephone Encounter - Medina Braswell RN - 02/16/2024 9:30 AM EDT Order [id number] for Regla Castano (1935) has been delivered by [facility].. If you have any questions, please call . * Telephone Encounter - Medina Braswell RN - 01/12/2024 7:01 AM EDT Order [id number] for Regla Castano (1935) is being fulfilled by [employer].. If you need assistance with this order, please call . * Telephone Encounter - Medina Braswell RN - 01/06/2024 7:05 AM EDT Order sent to [facility] * Telephone Encounter - Alona Rolle OSA - 12/31/2023 5:32 PM EDT Liz called from [employer] stating that the pt has [employer] insurance so the order for the blue incontinence pads needs upload to the online tomorrow health portal. * Telephone Encounter - Alona Mayer LPN - 12/01/2023 10:33 AM EDT Faxed. * Telephone Encounter - Verónica Benavides MD - 11/26/2023 11:22 AM EDT Signed * Telephone Encounter - Alona Mayer LPN - 11/26/2023 11:04 AM EDT Pended DME- blue incontinence pads We do not have any forms for these. Will try to send DME & see if they will be approved without form or appt discussing these. * Telephone Encounter - Bertha Sanders OSA - 11/26/2023 8:31 AM EDT Pt's daughter called to request an order for blue incontinence pads. The pt uses [facility] [employer] [facility] [employer]. Ph.[phone] Fax. [phone] documented in this encounter Plan of Treatment Upcoming Encounters Date Type Department Care Team (Late st Contact Info) Description 03/01/2024 11:20 AM EDT Office Visit Ophthalmology, [facility] 132 [facility] [place] [address] Romel Mcclelland, [address] [facility] [place] [address] 03/04/2024 3:10 PM EDT Office Visit Dermatology, Jhon Zayas [address] [place] [address] [place] [address] Berna Mathis PA-C [address] [place] [address] [place] [address] 03/04/2024 5:30 PM EDT Home Visit [facility] 132 [facility] [place] [address] Destiny Schultz, POPPY 132 [facility] [place] [address] 03/30/2024 3:40 PM EDT Office Visit Family Medicine [address] [place] [phone] Verónica Benavides MD [address] [place] [address] [place] [address] 04/21/2024 10:30 AM EDT Telemedicine Urology, [facility] 132 [facility] [place] [address] Chandler Pena MD [address] [place] [address] [place] [address] 11/24/2024 1:40 PM EDT Office Visit Dermatology [address] [place] [address] Sheryl Pena PA-C [address] [place] [address] [place] [address] Health Maintenance Due Date Last Done Comments [...] Additional history exists CKD PHOS USE SMARTSET 15714 02/08/202401/23, 08/07/2021, 11/09/2019, Additional history exists TSH 03/25/2024 03/25/2023, 10/2022, 10/28/2022, Additional history exists Influenza Vaccine (FLU shot) (Season Ended) 2024 06/20/2022, 06/20/2022, 06/29/2021, Additional history exists CKD HGB USE SMARTSET 49505 05/26/202405/26, 05/26/2023, 04/07/2023, Additional history exists Pneumococcal [...] as of this encounter Visit Diagnoses Diagnosis Mixed incontinence- Primary Mixed incontinence urge and stress (male)(female) documented in this encounter Additional Health Concerns 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/2023 01/30/2024 12:1 9 AM EDT documented as of this encounter Advance Directives Documents on File Type Date Recorded Patient Stamp Maker Expl anation Advance Directives and Living Will 08/10/2021 ADVANCE DIRECTIVE / LIVING WILL LIVING WILL Healthcare Agents on File Name Relationship [facility] Josselyn Judd Adult Child Health Care Power of Attor nathalie Care Teams Breaker Hand Relationship Specialty Start Date End Date Verónica Benavides MD [address] [place] [address] [place] [phone] PCP - General Family Medicine 09/16/14 documented as of this encounter
--- OUTSIDE RECORDS SUMMARY | 2024-04-24 11:16 | External Medical Summary ---
Author Name Unknown Address Unknown Organization K01:[facility] [place] [address] [facility] [address] Laboratory Report Ordering Provider Test Date Status SARAH GAO 02/20/2024 14:29:56 Final Observation Date Value Abnormality Reference (Units ) Status Color of Urine by Auto 02/20/2024 14:29:56 Brown Abnormal Colorless, Light Yellow, Yellow, Dark Yellow Final Clarity, Urine 02/20/2024 14:29:56 Cloudy Abnormal Clear Final Glucose [Mass/volume] in Urine by Automated test strip 02/20/2024 14:29:56 Negative Negative (mg/dL) Final Bilirubin.total [Presence] in Urine by Automated test strip 02/20/2024 14:29:56 Negative Negative Final Ketones [Mass/volume] in Urine by Automated test strip 02/20/2024 14:29:56 Negative Negative (mg/dL) Final Specific gravity, Urine 02/20/2024 14:29:56 1.008 1.003-1.030 Final Hemoglobin [Presence] in Urine by Automated test strip 02/20/2024 14:29:56 Trace Abnormal Negative Final pH, Urine 02/20/2024 14:29:56 8.5 Above high normal 5.0-7.5 (Units) Final Protein [Mass/volume] in Urine by Automated test strip 02/20/2024 14:29:56 >300 Abnormal Negative (mg/dL) Final Urobilinogen [Mass/volume] in Urine by Automated test strip 02/20/2024 14:29:56 Normal Normal (mg/dL) Final Nitrite [Presence] in Urine by Automated test strip 02/20/2024 14:29:56 Negative Negative Final Leukocyte esterase [Presence] in Urine by Automated test strip 02/20/2024 14:29:56 Large Abnormal Negative Final RBC, Urine 02/20/2024 14:29:56 6-9 Abnormal 0-2 (/HPF) Final WBC, Urine 02/20/2024 14:29:56 50+ Abnormal 0-2 (/HPF) Final Bacteria [#/area] in Urine sediment by Microscopy high power field 02/20/2024 14:29:56 151-200 Abnormal 0-25 (/HPF) Final Triple phosphate crystals [#/area] in Urine sediment by Microscopy high power field 02/20/2024 14:29:56 20-29 Abnormal None (/HPF) Final CULTURE, URINE - [facility] 02/20/2024 14:29:56 Final Quantitative urine culture t o be performed Performing Location [facility] [place] [address] [facility] [address]
--- OUTSIDE RECORDS SUMMARY | 2024-04-24 11:16 | External Medical Summary | Summary of Care ---
Author Name Unknown Organization [facility] Address [address] [place] [address] Phone [phone] Care Team Providers Care Baseball Player Name Role Phone Verónica Benavides MD Primary Care Provide r Reason for Visit * Reason Comments [facility]: Maintenance Encounter Details Date Type Department Care Team ([facility] st Contact Info) Description 02/20/2024 4:00 PM EDT [facility], [facility] 132 [facility] [place] [address] Destiny Schultz, POPPY [facility] [place] [address] Allergies Active Allergy Reactions Criticality Noted Date Comments Adhesive Tape Medium 01/30/2022 Ibuprofen Hives 01/13/2012 Aspirin Hives,Rash 09/15/2000 Sulfamethoxazole-Trimeth oprim Nausea/vomiting,Othe r (Please comment) 10/27/2020 Dizziness Ciprofloxacin Hcl 06/16/2019 Hoarse, dizzy,disoriented Morphine 09/21/2021 Blacked out Penicillins Hives,Rash 09/15/2000 Prednisone 12/30/2017 Weakness/memory changes/blurred vision documented as of this encounter (statuses as of 02/20/2024) Medications Medication Sig Dispensed Refills Start Date [...] mouth in the morning. 08/08/2021 Active Nystatin 803105 UNIT/GM External Powder (Nystop)Indications: Lydia rash of [...] XL)Indications:Non-i schemic cardiomyopathy (HCC),Coronary artery disease involving robinson coronary artery of robinson heart without angina pectoris,HTN, goal below 140/90 [...] Tablet 3 07/08/2023 Active OneTouch Delica Plus [id number] :Type 2 diabetes mellitus with hemoglobin A1c goal of less than 8.0% ([facility]) Test up to two times daily or as directed by [facility] pharmacist 200 Each 3 07/11/2023 Active [...] If no improvement on day 3, contact [facility] for possible home visit 1 [...] directed by clinician. 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 Last Assessment & Plan: [facility] Triage Call: Reviewed last C&S [...] Continue synthroid Coronary artery disease invo lving robinson coronary artery of robinson heart without angina pectoris 07/03/2012 Overview: 60% [...] as of this encounter (statuses as of 02/20/2024) Resolved Problems Problem Noted Date Diagnosed Date [...] as of this encounter (statuses as of 02/20/2024) Immunizations Name Administration Dates Next Due COVID-19 mRNA, LNP-s, No Pre serve, 2-Dose Series (Exerscrip) 08/29/2021,10/23/2020,10/02/2020 COVID-19, MRNA-LNP, 23-24, P F, 30 MCG/0.3 mL, 12 YRS AND ABOVE, IM (Safer Minicabs-ComirnatPurplu) 08/04/2023 Covid-19, Mrna, Lnp-s, Pf, B ivalent, 30 Mcg, IM, 12 yrs and above (Exerscrip) 08/02/2022 Pneumococcal Conjugate Vacc, 13 Valent (Prevnar) [...] Sign Reading Time Taken Comments Blood Pressure 136/68 02/20/2024 2:00 PM EDT Pulse 80 02/20/2024 2:00 PM EDT Temperature 36.7 C (98.1 F) 02/20/2024 2:00 PM ED T Respiratory Rate 18 02/20/2024 2:00 PM EDT Oxygen Saturation 97% 02/20/2024 2:00 PM EDT Inhaled Oxygen Concentration - - Weight 105.1 kg (231 lb 12.8 oz) 02/20/2024 2:00 PM EDT Height - - Body Mass Index 43.8 02/26/2023 10:32 AM EDT documented in this encounter Progress Notes * Destiny Schultz RN - 02/20/2024 3:40 PM EDT [facility] Financial Accounting Analyst Visit Date: 02/20/2024 Time: 1:45 PM Name: Regla Castano : 1935 Current Concerns: Patient seen for follow up- h/o falls/ UTI, CHF, CKD, DM2 Reports doing ok other than urinary issues Complaint of frequency/burning with urination. Caregiver reports she has had some weakness. UA obtained. Urine cloudy yellow. VS wnl Lungs clear bilaterally Sob with exertion Chronic BLE lymphedema Compression pumps daily Bowels wnl Appetite good Taking fluids Blood sugar 169 today. Daughter reports in the last few weeks has had to admin one metolazone with effectiveness d/t weight increasing to 238- became sob, leg edema increasing. Legs/weight back to baseline. Weight stable at present. Encouraged to limit sodium intact. Problems/Symptoms: Review of Systems Constitutional: Negative. HENT: Negative. Respiratory: Positive for shortness of breath. Cardiovascular: Positive for leg swelling. Gastrointestinal: Negative. Genitourinary: Positive for difficulty urinating and frequency. Musculoskeletal: Positive for arthralgias and gait problem. Skin: Negative. Neurological: Positive for weakness. Hematological: Negative. Psychiatric/Behavioral: Negative. Physical Exam: BP 136/68 (BP Site: Left Arm, BP Position: Sitting, BP Cuff Size: Regular) | Pulse 80 | Temp 36.7 C (98.1 F) (Tympanic) | Resp 18 | Wt 105.1 kg (231 lb 12.8 oz) | SpO2 97% | BMI 43.80 kg/m | BSA 2.13 m Pain 8- declines APAP Physical Exam Constitutional: Appearance: Normal appearance. Cardiovascular: [...] and Affect: Mood normal. Behavior: Behavior normal. [facility]-10 Completed this Visit: No. No falls since last visit Treatment/Plan: Non-bleached coffee filters under bilateral breasts/ abdominal folds Continue medications as prescribed Keep all upcoming MD appointments Fall precautions Blood sugar/weight daily- keep log. Fluids encouraged- 4 bottle water daily UA C&S to [facility] Compression pumps daily alternating legs. 24 hour caregivers through [facility] APAP prn pain Follow up phone calls- pending UA C&S results Home Interventions Provided: Labs/Specimen Collection Performed UA C&S Lab/Imaging Ordered UA C&S Reinforced current Plan of Care, including self-management and medication regimen Patient's Goals of Care: Stay in my own home Continue to walk with my walker Stay out of the hospital Patient's 'Red Flags': Increased sob Increased swelling Falls Urinary symptoms- confusion, burning Patient Needs to Remember: Call [facility] at with any new or worsening health concerns or problems, red flag symptoms. Referrals Needed: N/a Follow Up: Is there cellular connectivity/connectivity in the home? Yes Does the patient have internet in the home? Yes Patient encouraged to call the intake phone number for all urgent but not emergent issues. Scheduled to follow up with patient in 8 weeks. Destiny Byers RN 02/20/2024 3:40 PM documented in this encounter Plan of Treatment Upcoming Encounters Date Type Department Care Team (Late st Contact Info) Description 02/21/2024 9:15 AM EDT Scheduled Telephone [facility], [facility] [address] [place] [address] [facility], Nurse [address] [place] [address] 02/22/2024 2:30 PM EDT Scheduled Telephone [facility], [facility] [address] [place] [address] [facility], Nurse [address] [place] [address] 03/04/2024 3:10 PM EDT Office Visit Dermatology, Jhon Zayas [address] [place] [address] [place] [address] Berna Mathis PA-C 27 [place] [address] 03/04/2024 5:30 PM EDT Home Visit [facility], [facility] [address] [place] [address] Destiny Schultz, POPPY 132 [facility] [place] [address] 03/30/2024 3:40 PM EDT Office Visit Family Medicine [address] [place] [phone] Vreónica Benavides MD [address] [place] [address] [place] [address] 04/09/2024 2:30 PM EDT [facility] [place] [address] Destiny Schultz, POPPY 132 [facility] [place] [address] 04/21/2024 10:30 AM EDT Telemedicine Urology, [facility] [place] [address] Chandler Pena MD [address] [facility] [place] [address] 11/24/2024 1:40 PM EDT Office Visit Dermatology [address] [place] [address] Sheryl Pena PA-C [address] [place] [address] [place] [address] Health Maintenance Due Date Last Done Comments [...] Additional history exists CKD PHOS USE SMARTSET 40092 02/08/202401/23, 08/07/2021, 11/09/2019, Additional history exists TSH 03/25/2024 03/25/2023, 10/2022, 10/28/2022, Additional history exists Influenza Vaccine (FLU shot) (Season Ended) 2024 06/20/2022, 06/20/2022, 06/29/2021, Additional history exists CKD HGB USE SMARTSET 98326 05/26/202405/26, 05/26/2023, 04/07/2023, Additional history exists Pneumococcal [...] Documents on File Type Date Recorded Patient Pad Making Machine Operator Expl anation Advance Directives and Living Will 08/10/2021 ADVANCE DIRECTIVE / LIVING WILL LIVING WILL Healthcare Agents on File Name Relationship Healthcare Agent Relationshi p Communication Josselyn Judd Adult Child Health Care Power of Attor nathalie Care Teams Baseball Player Relationship Specialty Start Date End Date Verónica Benavides MD [address] [place] [address] [place] [address] PCP - General Family Medicine 09/16/14 documented as of this encounter
--- OUTSIDE RECORDS SUMMARY | 2024-04-24 11:16 | External Medical Summary | Summary of Care ---
Author Name Unknown Organization [facility] Address [address] [place] [address] Phone [phone] Care Team Providers Care Senior Process Control Tech Name Role Phone Verónica Benavides MD Primary Care Provide r Reason for Visit * Reason Comments eRx-Medication Refill Encounter Details Date Type Department Care Team ([facility] st Contact Info) Description 02/11/2024 Refill [facility], [facility] [address] [place] [address] Hermann Orona MD [address] [place] [address] Allergies Active Allergy Reactions Criticality Noted Date Comments Adhesive Tape Medium 01/30/2022 Ibuprofen Hives 01/13/2012 Aspirin Hives,Rash 09/15/2000 Sulfamethoxazole-Trimeth oprim Nausea/vomiting,Othe r (Please comment) 10/27/2020 Dizziness Ciprofloxacin Hcl 06/16/2019 Hoarse, dizzy,disoriented Morphine 09/21/2021 Blacked out Penicillins Hives,Rash 09/15/2000 Prednisone 12/30/2017 Weakness/memory changes/blurred vision documented as of this encounter (statuses as of 02/11/2024) Medications Medication Sig Dispensed Refills Start Date [...] mouth in the morning. 1 Active Nystatin 404890 UNIT/GM External Powder (Nystop)Indication s:Lydia rash of [...] XL)Indications:Non -ischemic cardiomyopathy (HCC),Coronary artery disease involving inupiat coronary artery of inupiat heart without angina pectoris,HTN, goal below 140/90 [...] Tablet 3 3 Active OneTouch Delica Plus [id number] ns:Type 2 diabetes mellitus with hemoglobin A1c goal of less than 8.0% ([facility]) Test up to two times daily or as directed by [facility] pharmacist 200 Each 3 3 [...] improvement on day 3, contact [facility] for possible home visit 1 [...] directed by clinician. 5 Tablet 4 Active metOLazone 2.5 MG Oral Tablet (Zaroxolyn) Take one tablet only when directed by clinician. 5 Tablet 3 02/11/20 24 Discontinued documented as of this encounter (statuses as of 02/11/2024) Active Problems Problem Noted Date Diagnosed Date [...] 06/29/2021 Last Assessment & Plan: [facility] Triage Call: Reviewed last C&S [...] Continue synthroid Coronary artery disease invo lving inupiat coronary artery of inupiat heart without angina pectoris 07/03/2012 Overview: 60% [...] as of this encounter (statuses as of 02/11/2024) Resolved Problems Problem Noted Date Diagnosed Date [...] as of this encounter (statuses as of 02/11/2024) Immunizations Name Administration Dates Next Due COVID-19 mRNA, LNP-s, No Pre serve, 2-Dose Series ([employer]) 08/29/2021,10/23/2020,10/02/2020 COVID-19, MRNA-LNP, 23-24, P F, 30 MCG/0.3 mL, 12 YRS AND ABOVE, IM ([facility] [employer] 08/04/2023 Covid-19, Mrna, Lnp-s, Pf, B ivalent, [...] encounter Miscellaneous Notes * Telephone Encounter - Devon Dhillon DO - 02/11/2024 1:25 PM EDTSigned Prescriptions: Disp Refills metOLazone 2.5 MG Oral Tablet (Zaroxolyn) 5 Tabl*0 Sig: Take one tablet only when directed by clinician. Authorizing Provider: DEVON DHILLON * Telephone Encounter - Devon Wilder LPN - 02/11/2024 9:53 AM EDT Did you pend patient's preferred pharmacy and medication before forwarding?yes Pharmacy: [facility], [address] [place] Pending Prescriptions: Disp Refills metOLazone 2.5 MG Oral Tablet (Zaroxolyn)*5 Tabl*0 Sig: Take one tablet only when directed by clinician. Last Visit: 07/15/2019 (in office), 04/30/2023 (telemedicine) Next Visit: 03/04/2024 If no future appointments scheduled, and last appointment is greater than a year ago, please schedule patient for a follow-up appointment Last date the medication was ordered: 03/12/23 Is this request for a controlled substance?No [...] 11:14 AM * Telephone Encounter - Fely Portillo, [facility] - 02/11/2024 9:45 AM EDT Pending Prescriptions: Disp Refills metOLazone 2.5 MG Oral Tablet [Pharmacy Me*5 Tabl*0 Sig: Take one tablet only when directed by clinician. documented in this encounter Plan of Treatment Upcoming Encounters Date Type Department Care Team (Late st Contact Info) Description 03/01/2024 11:20 AM EDT Office Visit Ophthalmology, [facility] [place] [address] Romel Mcclelland, DO [address] [place] [address] 03/04/2024 3:10 PM EDT Office Visit Dermatology, Jhon Zayas [address] [place] [address] Berna Mathis PA-C 27 [facility] [place] [address] [place] [address] 03/04/2024 5:30 PM EDT Home Visit [facility] at [facility] 132 [facility] [place] [address] Destiny Schultz RN 132 [facility] [place] [address] 03/30/2024 3:40 PM EDT Office Visit Family Medicine [address] [place] [phone] Verónica Benavides MD [address] [place] [address] [place] [address] 04/21/2024 10:30 AM EDT Telemedicine Urology, [facility] 132 [facility] [place] [address] Chandler Pena MD 27 [facility] [place] [address] [place] [address] 11/24/2024 1:40 PM EDT Office Visit Dermatology [address] [place] [address] Sheryl Pena PA-C [address] [place] [address] [place] [address] Health Maintenance Due Date Last Done Comments [...] Additional history exists CKD PHOS USE SMARTSET 99952 02/08/202401/23, 08/07/2021, 11/09/2019, Additional history exists TSH 03/25/2024 03/25/2023, 07/0 10/2022, 10/28/2022, Additional history exists Influenza Vaccine (FLU shot) (Season Ended) 2024 06/20/2022, 06/20/2022, 06/29/2021, Additional history exists CKD HGB USE SMARTSET 82946 05/26/202405/26, 05/26/2023, 04/07/2023, Additional history exists Pneumococcal [...] Documents on File Type Date Recorded Patient Data Coordinator Expl anation Advance Directives and Living Will 08/10/2021 ADVANCE DIRECTIVE / LIVING WILL LIVING WILL Healthcare Agents on File Name Relationship Healthcare Agent Relationshi p Communication Josselyn Judd Adult Child Health Care Power of Attor nathalie Care Teams Senior Process Control Tech Relationship Specialty Start Date End Date Verónica Benavides MD [address] [place] [address] [place] [address] PCP - General Family Medicine 09/16/14 documented as of this encounter
--- OUTSIDE RECORDS SUMMARY | 2024-04-24 11:16 | External Medical Summary ---
Author Name Unknown Address Unknown Organization K01:[facility] [place] [address] [facility] [address] Laboratory Report Ordering Provider Test Date Status SARAH GAO 02/20/2024 14:29:56 Final <10,000 colonies/ml mixed no rmal rachid Observation Date Value Abnormality Reference (Units ) Status Bacteria identified in Specimen by Culture 02/20/2024 14:29:56 [id number]^PROTEUS MIRABILIS Abnormal Final >100,000 colonies/mL Proteus mirabilis Performing Location [facility] [place] [address] [facility] [address] Ordering Provider Test Date Status SARAH GAO 02/20/2024 14:29:56 Final Observation Date Value Abnormality Reference (Units ) Status Ampicillin 02/20/2024 14:29:56 <=2 Susceptible Final Cefazolin 02/20/2024 14:29:56 <=4 Susceptible Final Cefepime susceptibility 02/20/2024 14:29:56 <=1 Susceptible Final Ceftriaxone suceptibility 02/20/2024 14:29:56 <=1 Susceptible Final Ciprofloxacin 02/20/2024 14:29:56 <=0.25 Susceptible Final Due to serious side effects, the FDA has advised against using Ciprofloxacin to treat uncomplicated UTIs and respiratory tract infections unless there are no alternative treatment options. Gentamicin susceptibility 02/20/2024 14:29:56 <=1 Susc eptible Final Piperacillin + Tazobactamsusceptibility 02/20/2024 14:29:56 <=4 Susceptible Final TMP-SMZ susceptibility 02/20/2024 14:29:56 <=20 Suscept ible Final Test: Culture, Urine, Quanti tative
Specimen Source: Urine, Clean Catch
Specimen Type: Urine
Specimen Date: 02/20/2024 1429
Result Date: 02/23/2024 0706
Result Status: Final result
Abnormal: Yes
Resulting Lab: [facility]
[address]
[place] [address]

CULTURE

>100,000 colonies/mL Proteus mirabilis (Abnormal)

<10,000 colonies/ml mixed normal rachid

SUSCEPTIBILITY

Proteus mirabilis
METHOD MICROBROTH
DILUTIONS

AMPICILLIN <=2 Susceptible
CEFAZOLIN <=4 Susceptible
CEFEPIME <=1 Susceptible
CEFTRIAXONE <=1 Susceptible
CIPROFLOXACIN <=0.25 Susceptible
[1]
GENTAMICIN <=1 Susceptible
PIPERACILLIN TAZOBACTAM <=4 Susceptible
TRIMETH/SULFAMETHOXAZOLE <=20 Susceptible

[1] Due to serious side effects, the FDA has advised against using
Ciprofloxacin to treat uncomplicated UTIs and respiratory tract infections
unless there are no alternative treatment options.

null Performing Location [facility] [place] [address] [facility] [address]
--- OUTSIDE RECORDS SUMMARY | 2024-04-24 11:16 | External Medical Summary | Summary of Care ---
Author Name Unknown Organization [facility] Address [address] [place] [address] Phone [phone] Care Team Providers Care Software Engineering Project Manager Name Role Phone Verónica Benavides MD Primary Care Provide r Reason for Visit * Reason Onset Date Comments Follow Up 02/22/2024 Encounter Details Date Type Department Care Team (Late st Contact Info) Description 02/22/2024 2:30 PM EDT Scheduled Telephone [facility], [facility] [address] [place] [address] [facility], Nurse [facility] [address] [place] [address] Allergies Active Allergy Reactions Criticality Noted Date Comments Adhesive Tape Medium 01/30/2022 Ibuprofen Hives 01/13/2012 Aspirin Hives,Rash 09/15/2000 Sulfamethoxazole-Trimeth oprim Nausea/vomiting,Othe r (Please comment) 10/27/2020 Dizziness Ciprofloxacin Hcl 06/16/2019 Hoarse, dizzy,disoriented Morphine 09/21/2021 Blacked out Penicillins Hives,Rash 09/15/2000 Prednisone 12/30/2017 Weakness/memory changes/blurred vision documented as of this encounter (statuses as of 02/22/2024) Medications Medication Sig Dispensed Refills Start Date [...] mouth in the morning. 08/08/2021 Active Nystatin 728046 UNIT/GM External Powder (Nystop)Indications: Lydia rash of [...] Tablet 3 07/08/2023 Active OneTouch Delica Plus [id number] :Type 2 diabetes mellitus with hemoglobin A1c [...] If no improvement on day 3, contact [facility] for possible home visit 1 [...] until gone. 5 Capsule 02/22/2024 4 Active documented as of this encounter (statuses as of 02/22/2024) Active Problems Problem Noted Date Diagnosed Date [...] as of this encounter (statuses as of 02/22/2024) Resolved Problems Problem Noted Date Diagnosed Date [...] as of this encounter (statuses as of 02/22/2024) Immunizations Name Administration Dates Next Due COVID-19 mRNA, LNP-s, No Pre serve, 2-Dose Series ([employer]) 08/29/2021,10/23/2020,10/02/2020 COVID-19, MRNA-LNP, 23-24, P F, 30 MCG/0.3 mL, 12 YRS AND ABOVE, IM (MakuCell-RxAppsirQinti) 08/04/2023 Covid-19, Mrna, Lnp-s, Pf, B ivalent, 30 Mcg, IM, 12 yrs and above ([employer]) 08/02/2022 Pneumococcal Conjugate Vacc, 13 Valent (Prevnar) [...] Telephone Encounter - Destiny Schultz RN - 02/22/2024 3:19 PM EDT Daughter made aware of script/recommendations. Voices understanding. * Telephone Encounter - Kip Gutierrez MD - 02/22/2024 3:14 PM EDT Urine culture preliminary showing non lactose fermenting Gram-negative bacilli but specificity and sensitivity are still pending. Patient history of UTI in the past. Noted she is allergic to penicillin, Bactrim and Cipro. Plan to start nitrofurantoin 100 mg capsule p.o. q.12 with food for 5 days. Encourage good hydration and to take probiotic while on the antibiotic. Follow- up sensitivity and specificity. E script sentTo patient's local pharmacy Thank you * Telephone Encounter - Destiny Schultz RN - 02/22/2024 2:53 PM EDT Preliminary urine results- awaiting sensitivity Spoke with daughter- patient is shaky, + weakness, doesn't want to do anything. TT to MD oxidation operator to make aware. documented in this encounter Plan of Treatment Upcoming Encounters Date Type Department Care Team (Late st Contact Info) Description 02/23/2024 1:30 PM EDT Scheduled Telephone [facility] [place], [facility] [address] [place] [address] Coordinator, [facility] [address] [place] [address] 03/04/2024 3:10 PM EDT Office Visit Dermatology, Jhon Zayas [address] [place] [address] [place] [address] Berna Mathis PA-C [address] [place] [address] 03/04/2024 5:30 PM EDT [facility] Visit [facility] [place], [facility] [address] [place] [address] Destiny Schultz RN [address] [place] [address] 03/30/2024 3:40 PM EDT Office Visit Family Medicine [address] [place] [phone] Verónica Benavides MD [address] [place] [address] [place] [address] 04/09/2024 2:30 PM EDT [facility] Visit [facility] [place], [facility] [address] [place] [address] Destiny Schultz RN [address] [place] [address] 04/21/2024 10:30 AM EDT Telemedicine Urology, [facility] [address] [place] [address] Chandler Pena MD [address] [place] [address] 11/24/2024 1:40 PM EDT Office Visit Dermatology [address] [place] [address] Sheryl Pena PA-C [address] [place] [address] [place] [address] Health Maintenance Due Date Last Done Comments [...] Additional history exists CKD PHOS USE SMARTSET 65645 02/08/202401/23, 08/07/2021, 11/09/2019, Additional history exists TSH 03/25/2024 03/25/2023, 07/0 10/2022, 10/28/2022, Additional history exists Influenza Vaccine (FLU shot) (Season Ended) 2024 06/20/2022, 06/20/2022, 06/29/2021, Additional history exists CKD HGB USE SMARTSET 60096 05/26/202405/26, 05/26/2023, 04/07/2023, Additional history exists Pneumococcal [...] Documents on File Type Date Recorded Patient Perinatal Nurse Expl anation Advance Directives and Living Will 08/10/2021 ADVANCE DIRECTIVE / LIVING WILL LIVING WILL Healthcare Agents on File Name Relationship Healthcare Agent Relationshi p Communication Josselyn Judd Adult Child Health Care Power of Attor nathalie Care Teams Software Engineering Project Manager Relationship Specialty Start Date End Date Verónica Benavides MD [address] [place] [address] [place] [address] PCP - General Family Medicine 09/16/14 documented as of this encounter
--- OUTSIDE RECORDS SUMMARY | 2024-04-24 11:16 | External Medical Summary | Summary of Care ---
Author Name Unknown Organization [facility] Address [address] [place] [address] Phone [phone] Care Team Providers Care Ham Trimmer Name Role Phone Verónica Benavides MD Primary Care Provide r Reason for Visit * Reason Onset Date Comments [facility]: Maintenance 02/23/2024 Encounter Details Date Type Department Care Team (Late st Contact Info) Description 02/23/2024 1:30 PM EDT Scheduled Telephone [facility], [facility] 132 [facility] [place] [address] Coordinator, [facility] 132 [facility] [place] [address] Allergies Active Allergy Reactions Criticality Noted Date [...] mouth in the morning. 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,HTN, goal below 140/90 [...] Tablet 3 07/08/2023 Active OneTouch Delica Plus [id number] :Type 2 diabetes mellitus with hemoglobin A1c goal of less than 8.0% ([facility]) Test up to two times daily or as directed by [facility] pharmacist 200 Each 3 07/11/2023 Active Estrogens [...] synthroid Coronary artery disease invo lving big sandy coronary artery of big sandy heart without angina pectoris 07/03/2012 Overview: 60% [...] mRNA, LNP-s, No Pre serve, 2-Dose Series (Jianjian) 08/29/2021,10/23/2020,10/02/2020 COVID-19, MRNA-LNP, 23-24, P F, 30 MCG/0.3 mL, 12 YRS AND ABOVE, IM ([facility]) 08/04/2023 Covid-19, Mrna, Lnp-s, Pf, B ivalent, 30 Mcg, IM, 12 yrs and above (Jianjian) 08/02/2022 Influenza, Whole Virus 08/07/2000 Pneumococcal Conjugate [...] up items to be completed and correspondence: chief operator reformer Pool please work on the following: contact the caller with advice and orders as above Karthikeyan Chaudhari DO [facility] - [facility] 02/23/2024 Scheduled appointments in the next 60 days: Future Appointments-next 60 days Date/Time Provider Specialty Dept Phone 03/04/2024 3:10 PM (Arrive by 2:55 PM) Berna Mathis PA-C Dermatology [phone] 03/04/2024 5:30 PM Destiny Schultz RN [facility] [phone] 03/30/2024 3:40 PM (Arrive by 3:25 PM) Verónica Benavides MD Family Medicine [phone] 04/09/2024 2:30 PM Destiny Schultz RN [facility] [phone] 04/21/2024 10:30 AM Chandler Pena MD Urology [phone] 11/24/2024 1:40 PM (Arrive by 1:25 PM) Sheryl Pena PA-C Dermatology [phone] * Telephone Encounter - Janiya Cárdenas RN [...] or frequency. Will forward sensitivity report to [facility] to review for med sensitivity. Disposition: Routed to [facility] and/or [facility] at Home Care Team for further advice and Follow up call scheduled for tomorrow with [facility] Talend Etl Developer Future Visits Scheduled: Future Appointments-next 60 days Date/Time Provider Specialty Dept Phone 03/04/2024 3:10 PM (Arrive by 2:55 PM) Berna Mathis PA-C Dermatology [phone] 03/04/2024 5:30 PM Destiny Schultz RN [facility] [phone] 03/30/2024 3:40 PM (Arrive by 3:25 PM) Verónica Benavides MD Family Medicine [phone] 04/09/2024 2:30 PM Destiny Schultz RN [facility] [phone] 04/21/2024 10:30 AM Chandler Pena MD Urology [phone] 11/24/2024 1:40 PM (Arrive by 1:25 PM) Sheryl Pena PA-C Dermatology [phone] Janiya Cárdenas, POPPY documented in this encounter Plan of Treatment Upcoming Encounters Date Type Department Care Team (Late st Contact Info) Description 03/04/2024 3:10 PM EDT Office [place] [address] [place] [address] [place] [address] Berna Mathis PA-C [address] [place] [address] 03/04/2024 5:30 PM EDT Home Visit [facility], [facility] [address] [place] [address] Destiny Schultz, POPPY [address] [place] [address] 03/30/2024 3:40 PM EDT Office Visit Family Medicine [address] [place] [phone] Verónica Benavides MD [address] [place] [address] [place] [address] 04/09/2024 2:30 PM EDT Home Visit [facility], [facility] 132 [facility] [place] [address] Destiny Schultz RN [address] [place] [address] 04/21/2024 10:30 AM EDT Telemedicine Urology, [facility] [address] [place] [address] Chandler Pena MD [address] [place] [address] 11/24/2024 1:40 PM EDT Office Visit Dermatology [address] [place] [address] Sheryl Pena PA-C [address] [place] [address] [place] [address] Health Maintenance Due Date Last Done Comments [...] Additional history exists CKD PHOS USE SMARTSET 17780 02/08/202401/23, 08/07/2021, 11/09/2019, Additional history exists TSH 03/25/2024 03/25/2023, 07/10/2022, 10/28/2022, Additional history exists Influenza Vaccine (FLU shot) (#1) 2024 06/20/2022, 06/20/2022, 06/29/2021, Additional history exists CKD HGB USE SMARTSET 15685 05/26/202405/26, 05/26/2023, 04/07/2023, Additional history exists Pneumococcal [...] Documents on File Type Date Recorded Patient Scientific Informatics Project Leader Expl anation Advance Directives and Living Will 08/10/2021 ADVANCE DIRECTIVE / LIVING WILL LIVING WILL Healthcare Agents on File Name Relationship Healthcare Agent Relationshi p Communication Josselyn Judd Adult Child Health Care Power of Attor nathalie Care Teams Ham Trimmer Relationship Specialty Start Date End Date Verónica Benavides MD [address] [place] [address] [place] [phone] PCP - General Family Medicine 09/16/14 documented as of this encounter
--- OUTSIDE RECORDS SUMMARY | 2024-04-24 11:16 | External Medical Summary | Summary of Care ---
Author Name Unknown Organization [facility] Address [address] [place] [address] Phone [phone] Care Team Providers Care Radiation Control Health Physicist Name Role Phone Verónica Benavides MD Primary Care Provide r Reason for Visit * Reason Onset Date Comments Follow Up 02/22/2024 Encounter Details Date Type Department Care Team (Late st Contact Info) Description 02/22/2024 2:30 PM EDT Scheduled Telephone [facility], [facility] [address] [place] [address] [facility], Nurse [facility] [address] [place] [address] Allergies Active Allergy Reactions Criticality Noted Date [...] mouth in the morning. 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 TT to MD mainspring fabrication supervisor to make aware. documented in this encounter Plan of Treatment Upcoming Encounters Date Type Department Care Team (Late st Contact Info) Description 02/23/2024 1:30 PM EDT Scheduled Telephone [facility], [facility] [address] [place] [address] Coordinator, [facility] [address] [place] [address] 03/04/2024 3:10 PM EDT Office Visit Dermatology, [facility] [address] [place] [address] [place] [address] Berna Mathis PA-C 27 [place] [address] 03/04/2024 5:30 PM EDT Home Visit [facility] [place], [facility] [address] [place] [address] Destiny Schultz RN 132 [facility] [place] [address] 03/30/2024 3:40 PM EDT Office Visit Family Medicine [address] [place] [phone] Verónica Benavides MD [address] [place] [address] [place] [address] 04/09/2024 2:30 PM EDT Home Visit [facility], [facility] [address] [place] [address] Destiny Schultz RN [address] [place] [address] 04/21/2024 10:30 AM EDT Telemedicine Urology, [facility] [address] [place] [address] Chandler Pena MD 27 [facility] [place] [address] 11/24/2024 1:40 PM EDT Office Visit Dermatology [address] [place] [address] Sheryl Pena PA-C [address] [place] [address] [place] [address] Health Maintenance Due Date Last Done Comments [...] Additional history exists CKD PHOS USE SMARTSET 89090 02/08/202401/23, 08/07/2021, 11/09/2019, Additional history exists TSH 03/25/2024 03/25/2023, 07/0 10/2022, 10/28/2022, Additional history exists Influenza Vaccine (FLU shot) (Season Ended) 2024 06/20/2022, 06/20/2022, 06/29/2021, Additional history exists CKD HGB USE SMARTSET 87883 05/26/202405/26, 05/26/2023, 04/07/2023, Additional history exists Pneumococcal [...] Documents on File Type Date Recorded Patient Sheet Folder Expl anation Advance Directives and Living Will 08/10/2021 ADVANCE DIRECTIVE / LIVING WILL LIVING WILL Healthcare Agents on File Name Relationship Healthcare Agent [facility] p Communication Josselyn Judd Adult Child Health Care Power of Attor nathalie Care Teams Radiation Control Health Physicist Relationship Specialty Start Date End Date Verónica Benavides MD [address] [place] [address] [place] [address] PCP - General Family Medicine 09/16/14 documented as of this encounter
--- OUTSIDE RECORDS SUMMARY | 2024-04-24 11:16 | External Medical Summary | Summary of Care ---
Author Name Unknown Organization [facility] Address [address] [place] [address] Phone [phone] Care Team Providers Care Operator Catalyst Concentration Name Role Phone Verónica Benavides MD Primary Care Provide r Reason for Visit * Reason Onset Date Comments [facility]: Maintenance 02/21/2024 Encounter Details Date Type Department Care Team (Late st Contact Info) Description 02/21/2024 9:15 AM EDT Scheduled Telephone [facility], [facility] [address] [place] [address] [facility], Nurse [facility] [address] [place] [address] Allergies Active Allergy Reactions Criticality Noted Date Comments Adhesive Tape Medium 01/30/2022 Ibuprofen Hives 01/13/2012 Aspirin Hives,Rash 09/15/2000 Sulfamethoxazole-Trimeth oprim Nausea/vomiting,Othe r (Please comment) 10/27/2020 Dizziness Ciprofloxacin Hcl 06/16/2019 Hoarse, dizzy,disoriented Morphine 09/21/2021 Blacked out Penicillins Hives,Rash 09/15/2000 Prednisone 12/30/2017 Weakness/memory changes/blurred vision documented as of this encounter (statuses as of 02/21/2024) Medications Medication Sig Dispensed Refills Start Date [...] mouth in the morning. 08/08/2021 Active Nystatin [id number] UNIT/GM External Powder (Nystop)Indications: Lydia rash of [...] XL)Indications:Non-i schemic cardiomyopathy (HCC),Coronary artery disease involving [place] coronary artery of [place] heart without angina pectoris,HTN, goal below 140/90 [...] Tablet 3 07/08/2023 Active OneTouch Delica Plus [id number] :Type 2 diabetes mellitus with hemoglobin A1c goal of less than 8.0% ([facility]) Test up to two times daily or as directed by [facility] pharmacist 200 Each 3 07/11/2023 [...] as of this encounter (statuses as of 02/21/2024) Active Problems Problem Noted Date Diagnosed Date [...] Continue synthroid Coronary artery disease invo lving [place] coronary artery of [place]uiqs[place] heart without angina pectoris 07/03/2012 Overview: 60% [...] as of this encounter (statuses as of 02/21/2024) Resolved Problems Problem Noted Date Diagnosed Date [...] as of this encounter (statuses as of 02/21/2024) Immunizations Name Administration Dates Next Due COVID-19 mRNA, LNP-s, No Pre serve, 2-Dose Series (micecloud) 08/29/2021,10/23/2020,10/02/2020 COVID-19, MRNA-LNP, 23-24, P F, 30 MCG/0.3 mL, 12 YRS AND ABOVE, IM ([employer]) 08/04/2023 Covid-19, Mrna, Lnp-s, Pf, B ivalent, 30 Mcg, IM, 12 yrs and above (micecloud) 08/02/2022 Pneumococcal Conjugate Vacc, 13 Valent (Prevnar) [...] Telephone Encounter - Carol Portillo RN - 02/21/2024 1:02 PM EDT Urine culture pending and still in process, no call made today, has follow up call scheduled for tomorrow to review urine culture results. KATY Lynn Wire Stitcher Operator [facility] documented in this encounter Plan of Treatment Upcoming Encounters Date Type Department Care Team (Late st Contact Info) Description 02/22/2024 2:30 PM EDT Scheduled Telephone [facility] [place], [facility] 132 [facility] [place] [address] [facility], Nurse [facility] 132 [facility] [place] [address] 03/04/2024 3:10 PM EDT Office Visit Dermatology, Jhon Zayas [address] [place] [address] [place] [address] Berna Mathis PA-C [address] [place] [address] 03/04/2024 5:30 PM EDT Home Visit [facility] [place], [facility] 132 [facility] [place] [address] Destiny Schultz RN [address] [place] [address] 03/30/2024 3:40 PM EDT Office Visit Family Medicine [address] [place] [phone] Verónica Benavides MD [address] [place] [address] [place] [address] 04/09/2024 2:30 PM EDT Home Visit [facility], [facility] [address] [place] [address] Destiny Schultz RN [address] [place] [address] 04/21/2024 10:30 AM EDT Telemedicine Urology, [facility] [address] [place] [address] Chandler Pena MD [address] [place] [address] 11/24/2024 1:40 PM EDT Office Visit Dermatology [address] [place] [address] Sheryl Pena PA-C [address] [place] [address] [place] [address] Health Maintenance Due Date Last Done Comments [...] Additional history exists CKD PHOS USE SMARTSET 94570 02/08/202401/23, 08/07/2021, 11/09/2019, Additional history exists TSH 03/25/2024 03/25/2023, 07/0 10/2022, 10/28/2022, Additional history exists Influenza Vaccine (FLU shot) (Season Ended) 2024 06/20/2022, 06/20/2022, 06/29/2021, Additional history exists CKD HGB USE SMARTSET 60865 05/26/202405/26, 05/26/2023, 04/07/2023, Additional history exists Pneumococcal [...] Documents on File Type Date Recorded Patient Wedding Transportation Driver Expl 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 Communication Josselyn Judd Adult [facility] Health Care Power of Attor nathalie Care Teams Operator Catalyst Concentration Relationship Specialty Start Date End Date Verónica Benavides MD [address] [place] [address] [place] [phone] PCP - General Family Medicine 09/16/14 documented as of this encounter
--- OUTSIDE RECORDS SUMMARY | 2024-04-24 11:16 | External Medical Summary | Summary of Care ---
Author Name Unknown Organization [facility] Address [address] [place] [address] Phone [phone] Care Team Providers Care Garde Manager Name Role Phone Verónica Benavides MD Primary Care Provide r Reason for Visit * Reason Onset Date Comments Medication Refill 02/10/2024 Re: Omeprazole DR 20MG Capsule Encounter Details Date Type Department Care Team (Late st Contact Info) Description 02/10/2024 Refill [facility], [place] [facility] [address] [facility] [place] [address] Murray Smith PA-C [address] [facility] [address] Allergies Active Allergy Reactions Criticality Noted Date Comments Adhesive Tape Medium 01/30/2022 Ibuprofen Hives 01/13/2012 Aspirin Hives,Rash 09/15/2000 Sulfamethoxazole-Trimeth oprim Nausea/vomiting,Othe r (Please comment) 10/27/2020 Dizziness Ciprofloxacin Hcl 06/16/2019 Hoarse, dizzy,disoriented Morphine 09/21/2021 Blacked out Penicillins Hives,Rash 09/15/2000 Prednisone 12/30/2017 Weakness/memory changes/blurred vision documented as of this encounter (statuses as of 02/10/2024) Medications Medication Sig Dispensed Refills Start Date [...] mouth in the morning. 08/08/2021 Active Nystatin 580171 UNIT/GM External Powder (Nystop)Indications :Lydia rash of [...] XL)Indications:Non- ischemic cardiomyopathy (HCC),Coronary artery disease involving [place] coronary artery of [place] heart without angina pectoris,HTN, goal below 140/90 Take 1 Tablet by mouth every evening. 90 Tablet 11 02/27/2023 Active Spironolactone 25 MG Oral Tablet (Aldactone)Indicati ons:Non-ischemic cardiomyopathy (HCC) Take 0.5 Tablets by mouth in the morning. 45 Tablet 3 02/27/2023 Active metOLazone 2.5 MG Oral Tablet (Zaroxolyn) Take one tablet only when directed by clinician. 5 Tablet 03/12/2023 Active Benzonatate 100 MG Oral Capsule Take 1 Capsule by mouth 3 times a day as needed for Cough. 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 Last Assessment & Plan: [facility] Triage Call: Reviewed last C&S - [...] Continue synthroid Coronary artery disease invo lving [place] coronary artery of [place] heart without angina pectoris 07/03/2012 Overview: [...] as of this encounter (statuses as of 02/10/2024) Resolved Problems Problem Noted Date Diagnosed Date [...] as of this encounter (statuses as of 02/10/2024) Immunizations Name Administration Dates Next Due COVID-19 mRNA, LNP-s, No Pre serve, 2-Dose Series (Kiggit) 08/29/2021,10/23/2020,10/02/2020 COVID-19, MRNA-LNP, 23-24, P F, 30 MCG/0.3 mL, 12 YRS AND ABOVE, IM ([employer]) 08/04/2023 Covid-19, Mrna, Lnp-s, Pf, B ivalent, 30 Mcg, IM, 12 yrs and above (Kiggit) 08/02/2022 Pneumococcal Conjugate Vacc, 13 Valent (Prevnar) [...] Telephone Encounter - Murray Smith PA-C - 02/10/2024 9:31 AM EDTSigned Prescriptions: Disp Refills Omeprazole 20 MG Oral Capsule Delayed Rele*90 Cap*1 Sig: Take 1 Capsule by mouth in the morning. One hour before the first meal of the day.. Authorizing Provider: MURRAY SMITH * Telephone Encounter - Tonie Painting OSA - 02/10/2024 9:26 AM EDT Please authorize with refills, as appropriate. Thank you, BETTY Lyon documented in this encounter Plan of Treatment Upcoming Encounters Date Type Department Care Team (Late st Contact Info) Description 03/01/2024 11:20 AM EDT Office Visit Ophthalmology, [facility] 132 [facility] [place] [address] Romel Mcclelland, DO [address] [place] [address] 03/04/2024 3:10 PM EDT Office Visit Dermatology, Gladis VargasJhon [address] [place] [address] [place] [address] Berna Mathis PA-C [address] [place] [address] [place] [address] 03/04/2024 5:30 PM EDT [facility] Visit [facility], [facility] 132 [facility] [place] [address] Destiny Schultz RN 132 [facility] [place] [address] 03/30/2024 3:40 PM EDT Office Visit Family Medicine [address] [place] [phone] Verónica Benavides MD [address] [place] [address] [place] [address] 04/21/2024 10:30 AM EDT Telemedicine Urology, [facility] 132 [facility] [place] [address] Chandler Pena MD [address] [place] [address] [place] [address] 11/24/2024 1:40 PM EDT Office Visit Dermatology [address] [place] [address] Sheryl Pena PA-C [address] [place] [address] [place] [address] Health Maintenance Due Date Last Done Comments [...] Additional history exists CKD PHOS USE SMARTSET 58121 02/08/202401/23, 08/07/2021, 11/09/2019, Additional history exists TSH 03/25/2024 03/25/2023, 07/0 10/2022, 10/28/2022, Additional history exists Influenza Vaccine (FLU shot) (Season Ended) 2024 06/20/2022, 06/20/2022, 06/29/2021, Additional history exists CKD HGB USE SMARTSET 65632 05/26/202405/26, 05/26/2023, 04/07/2023, Additional history exists Pneumococcal [...] Documents on File Type Date Recorded Patient Electric 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 Helper Expl anation Advance Directives and Living Will 08/10/2021 ADVANCE DIRECTIVE / LIVING WILL LIVING WILL Healthcare Agents on File Name Relationship Healthcare Agent [facility] Communication Josselyn Judd [facility] Health Care Power of Attor nathalie Care Teams Garde Manager Relationship Specialty Start Date End Date Verónica Benavides MD [address] [place] [address] [place] [phone] PCP - General Family Medicine 09/16/14 documented as of this encounter
--- OUTSIDE RECORDS SUMMARY | 2024-04-24 11:16 | External Medical Summary | Summary of Care ---
Author Name Unknown Organization [facility] Address [address] [place] [address] Phone [phone] Care Team Providers Care Cellar Worker Name Role Phone Verónica Benavides MD Primary Care Provide r Reason for Visit * Reason Onset Date Comments Appointment 02/20/2024 Encounter Details Date Type Department Care Team (Late st Contact Info) Description 02/20/2024 Telephone [facility], [place] [address] [place], [place] [id number] Services, Scheduling [address] [place] [address] Appointment (//) Allergies Active Allergy Reactions Criticality [...] mouth in the morning. 08/08/2021 Active Nystatin 728705 UNIT/GM External Powder (Nystop)Indications: Lydia rash of [...] XL)Indications:Non-i schemic cardiomyopathy (HCC),Coronary artery disease involving false pass coronary artery of false pass heart without angina pectoris,HTN, goal below [...] Tablet 3 07/08/2023 Active OneTouch Delica Plus [id number] :Type 2 diabetes mellitus with hemoglobin A1c goal of less than 8.0% ([facility]) Test up to two times daily or as directed by [facility] pharmacist 200 Each 3 07/11/2023 [...] If no improvement on day 3, contact [facility] for possible home visit 1 Each [...] 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 Last Assessment & Plan: [facility] Triage Call: Reviewed last C&S - [...] Continue synthroid Coronary artery disease invo lving false pass coronary artery of false pass heart without angina pectoris 07/03/2012 Overview: [...] mRNA, LNP-s, No Pre serve, 2-Dose Series (gDecide) 08/29/2021,10/23/2020,10/02/2020 COVID-19, MRNA-LNP, 23-24, P F, 30 MCG/0.3 mL, 12 YRS AND ABOVE, IM ([employer]) 08/04/2023 Covid-19, Mrna, Lnp-s, Pf, B ivalent, [...] encounter Miscellaneous Notes * Telephone Encounter - Liliam Hsieh OSA - 02/20/2024 3:47 PM EDT Request to schedule weekend phone calls to f/u on UA C&S results documented in this encounter Plan of Treatment Upcoming Encounters Date Type Department Care Team (Late st Contact Info) Description 02/21/2024 9:15 AM EDT Scheduled Telephone [facility], [address] [place] [address] [facility], Nurse [address] [place] [address] 02/22/2024 2:30 PM EDT Scheduled Telephone [facility], [address] [place] [address] [facility], Nurse [address] [place] [address] 03/04/2024 3:10 PM EDT Office Visit Dermatology, Jhon Zayas [address] [place] [address] Berna Mathis PA-C [address] [place] [address] 03/04/2024 5:30 PM EDT Home Visit [facility], [facility] [address] [place] [address] Destiny Schultz, POPPY [address] [place] [address] 03/30/2024 3:40 PM EDT Office Visit Family Medicine [address] [place] [phone] Verónica Benavides MD [address] [place] [address] [place] [address] 04/09/2024 2:30 PM EDT Home Visit [facility] [address] [place] [address] Destiny Schultz RN [address] [place] [address] 04/21/2024 10:30 AM EDT Telemedicine Urology, [facility] [address] [place] [address] Chandler Pena MD [address] [place] [address] 11/24/2024 1:40 PM EDT Office Visit Dermatology [address] [place] [address] Sheryl Pena PA-C [address] [place] [address] [place] [address] Health Maintenance Due Date Last Done Comments Zoster Vaccines (1 of 2) 1985 DXA Scan 04/02/2020 04/02/2017, 05/2 11/2012, 11/05/2007 [...] Additional history exists CKD PHOS USE SMARTSET 06457 02/08/202401/23, 08/07/2021, 11/09/2019, Additional history exists TSH 03/25/2024 03/25/2023, 10/2022, 10/28/2022, Additional history exists Influenza Vaccine (FLU shot) (Season Ended) 2024 06/20/2022, 06/20/2022, 06/29/2021, Additional history exists CKD HGB USE SMARTSET 84223 05/26/202405/26, 05/26/2023, 04/07/2023, Additional history exists Pneumococcal [...] Documents on File Type Date Recorded Patient Insurance Administrator Expl anation Advance Directives and Living Will 08/10/2021 ADVANCE DIRECTIVE / LIVING WILL LIVING WILL Healthcare Agents on File Name Relationship Healthcare Agent [facility] p Communication Josselyn Judd Adult Child Health Care Power of Attor nathalie Care Teams Cellar Worker Relationship Specialty Start Date End Date Verónica Benavides MD [address] [place] [address] [place] [phone] PCP - General Family Medicine 09/16/14 documented as of this encounter
--- OUTSIDE RECORDS SUMMARY | 2024-04-24 11:17 | External Medical Summary | Summary of Care ---
Author Name Unknown Organization [facility] Address [address] [place] [address] Phone [phone] Care Team Providers Care Labor Relations Worker Name Role Phone Verónica Benavides MD Primary Care Provide r Reason for Visit * Reason Onset Date Comments [facility]: Maintenance 01/29/2024 Encounter Details Date Type Department Care Team (Late st Contact Info) Description 01/29/2024 10:00 AM EDT Scheduled Telephone [facility], [facility] 132 [facility] [place] [address] Coordinator, [facility] 132 [facility] [place] [address] Allergies Active Allergy Reactions Criticality Noted Date Comments Adhesive Tape Medium 01/30/2022 Ibuprofen Hives 01/13/2012 Aspirin Hives,Rash 09/15/2000 Sulfamethoxazole-Trimeth oprim Nausea/vomiting,Othe r (Please comment) 10/27/2020 Dizziness Ciprofloxacin Hcl 06/16/2019 Hoarse, dizzy,disoriented Morphine 09/21/2021 Blacked out Penicillins Hives,Rash 09/15/2000 Prednisone 12/30/2017 Weakness/memory changes/blurred vision documented as of this encounter (statuses as of 01/29/2024) Medications Medication Sig Dispensed Refills Start Date [...] mouth in the morning. 08/08/2021 Active Nystatin 168190 UNIT/GM External Powder (Nystop)Indications: Lydia rash of [...] XL)Indications:Non-i schemic cardiomyopathy (HCC),Coronary artery disease involving tolowa dee-ni' coronary artery of tolowa dee-ni' heart without angina pectoris,HTN, goal below 140/90 [...] Tablet 3 07/08/2023 Active OneTouch Delica Plus [id number] :Type 2 diabetes mellitus with hemoglobin A1c goal of less than 8.0% ([facility]) Test up to two times daily or as directed by [facility] pharmacist 200 Each 3 07/11/2023 Active [...] OTHER MEDS 90 Tablet 3 08/11/2023 Active Trulicity 0.75 MG/0.5ML Subcutaneous Solution Pen-injector [...] at bedtime 3.5 g 3 01/07/2024 Active Cephalexin 500 MG Oral Capsule Take 1 Capsule by mouth in the morning and 1 Capsule at noon and 1 Capsule before bedtime. Do all this for 10 days. 30 Capsule 01/28/2024 4 Active documented as of this encounter (statuses as of 01/29/2024) Active Problems Problem Noted Date Diagnosed Date [...] Beta Berta Therapy: Metoprolol Succinate (ER) o MAROI Inhibitor/ARB Therapy: Other: none o Diuretic therapy: [...] Continue synthroid Coronary artery disease invo lving tolowa dee-ni' coronary artery of tolowa dee-ni' heart without angina pectoris 07/03/2012 Overview: 60% [...] as of this encounter (statuses as of 01/29/2024) Resolved Problems Problem Noted Date Diagnosed Date [...] as of this encounter (statuses as of 01/29/2024) Immunizations Name Administration Dates Next Due COVID-19 mRNA, LNP-s, No Pre serve, 2-Dose Series ([employer]) 08/29/2021,10/23/2020,10/02/2020 COVID-19, MRNA-LNP, 23-24, P F, 30 MCG/0.3 mL, 12 YRS AND ABOVE, IM ([employer]) 08/04/2023 Covid-19, Mrna, Lnp-s, Pf, B ivalent, [...] Telephone Encounter - Beth Bailon RN - 01/29/2024 11:58 AM EDT [facility] Telephonic Nurse Follow-Up Call [facility] Subprogram: Primary Care at Home Follow Up Call Type: Routine follow up call / Status Check Acute issue requiring follow-up call: Other: follow up on urinary symptoms, culture results Objective: 01/08/2024 4:45 PM 12/19/2023 11:03 AM 11/11/2023 2:14 PM 10/31/2023 2:19 PM 10/22/2023 2:01 PM VITALS ACROSS ENCOUNTERS BP 104/76 118/62 122/64 108/60 116/74 Pulse 72 64 62 68 68 Weight 108 kg 108 kg 107 kg BMI 44.97 kg/m2 44.97 kg/m2 44.59 kg/m2 Remote Patient Monitoring: NONE Oxygen Needs: NO supplemental oxygen needs identified DME Needs: NO DME needs identified Medications: New medication(s) added: pending provider review Subjective: Condition Status: Improvement in symptoms but not at baseline Current Concerns: Spoke with daughterJosselyn.reports that there has been some improvement. Notes that pt is still somewhat confused at times though. Urinating easier. Denies fever/chills, flank pain. Encouraged to continue to push fluids up to daily limit and report if having fever, chills, increase in lethergy/changes in mental status. Pt verbalizes understanding and able to repeat back instruction correctly. Reviewed s/s and prevention of UTI: Symptoms: -burning with urination -increased urination -cloudy urine -dark urine -foul smelling urine -fever -weakness/change in mental status Prevention: -drink plenty of fluids -wear cotton panties -wipe from front to back -avoid delayed bladder emptying Disposition: [facility] Future Visits Scheduled: Future Appointments-next 60 days Date/Time Provider Specialty Dept Phone 01/28/2024 9:30 AM Coordinator, Lise Lepe [facility] [phone] 02/11/2024 11:20 AM (Arrive by 11:05 AM) Sheryl Pena PA-C Dermatology [phone] 03/01/2024 11:20 AM Romel Mcclelland, DO Ophthalmology [phone] 03/04/2024 5:30 PM Destiny Schultz RN [facility] [phone] 03/30/2024 3:40 PM (Arrive by 3:25 PM) Verónica Benavides MD Family Medicine [phone] 04/21/2024 10:30 AM Chandler Pena MD Urology [phone] 11/24/2024 1:40 PM (Arrive by 1:25 PM) Sheryl Pena PA-C Dermatology [phone] Beth Bailon RN documented in this encounter Plan of Treatment Upcoming Encounters Date Type Department Care Team (Late st Contact Info) Description 01/30/2024 12:45 PM EDT Scheduled Telephone [facility], [facility] [address] [place] [address] Coordinator, Lise Lepe 132 [facility] [place] [address] 02/11/2024 11:20 AM EDT Office Visit Dermatology [address] [place] [address] Sheryl Pena PA-C [address] [place] [address] [place] [address] 03/01/2024 11:20 AM EDT Office Visit Ophthalmology, [facility] 132 [facility] [place] [address] Romel Mcclelland, DO [address] [place] [address] 03/04/2024 5:30 PM EDT Home Visit [facility], [facility] 132 [facility] [place] [address] Destiny Schultz RN 132 [place] [address] 03/30/2024 3:40 PM EDT Office Visit Family Medicine [address] [place] [phone] Verónica Benavides MD [address] [place] [address] [place] [address] 04/21/2024 10:30 AM EDT Telemedicine Urology, [facility] 132 [facility] [place] [address] Chandler Pena MD 27 [facility] [address] [place] [address] 11/24/2024 1:40 PM EDT Office Visit Dermatology [address] [place] [address] Sheryl Pena PA-C [address] [place] [address] [place] [address] Health Maintenance Due Date Last Done Comments [...] Additional history exists CKD PHOS USE SMARTSET 29797 02/08/202401/23, 08/07/2021, 11/09/2019, Additional history exists TSH 03/25/2024 03/25/2023, 07/0 10/2022, 10/28/2022, Additional history exists Influenza Vaccine (FLU shot) (Season Ended) 2024 06/20/2022, 06/20/2022, 06/29/2021, Additional history exists CKD HGB USE SMARTSET 89997 05/26/202405/26, 05/26/2023, 04/07/2023, Additional history exists Pneumococcal [...] on File Type Date Recorded Patient Manager Front Expl anation Advance Directives and Living Will 08/10/2021 ADVANCE DIRECTIVE / LIVING WILL LIVING WILL Healthcare Agents on File Name Relationship [facility] Josselyn Judd Adult Child Health Care Power of Attor nathalie Care Teams Labor Relations Worker Relationship Specialty Start Date End Date Verónica Benavides MD [address] [place] [address] [place] [phone] PCP - General Family Medicine 09/16/14 documented as of this encounter
--- OUTSIDE RECORDS SUMMARY | 2024-04-24 11:17 | External Medical Summary | Summary of Care ---
Author Name Unknown Organization [facility] Address [address] [place] [address] Phone [phone] Care Team Providers Care Transformer Assembler Name Role Phone Verónica Benavides MD Primary Care Provide r Reason for Visit * Reason Onset Date Comments [facility]: Maintenance 01/27/2024 Encounter Details Date Type Department Care Team (Late st Contact Info) Description 01/27/2024 9:30 AM EDT Scheduled Telephone [facility], [facility] 132 [facility] [place] [address] Coordinator, [facility] 132 [facility] [place] [address] Allergies Active Allergy Reactions Criticality Noted Date Comments Adhesive Tape Medium 01/30/2022 Ibuprofen Hives 01/13/2012 Aspirin Hives,Rash 09/15/2000 Sulfamethoxazole-Trimeth oprim Nausea/vomiting,Othe r (Please comment) 10/27/2020 Dizziness Ciprofloxacin Hcl 06/16/2019 Hoarse, dizzy,disoriented Morphine 09/21/2021 Blacked out Penicillins Hives,Rash 09/15/2000 Prednisone 12/30/2017 Weakness/memory changes/blurred vision documented as of this encounter (statuses as of 01/27/2024) Medications Medication Sig Dispensed Refills Start Date [...] mouth in the morning. 08/08/2021 Active Nystatin 901693 UNIT/GM External Powder (Nystop)Indications: Lydia rash of [...] for gout attack 8 Tablet 06/03/2023 Active Fosfomycin Tromethamine 3 GM Oral Packet (Monurol)Indications :Complicated UTI (urinary tract infection) Take 3 g by mouth every 3 days. 3 Packet 06/04/2023 Active Additional Information Patient not taking.Reported on 10/22/2023 Promethazine-DM 6.25-15 MG/5ML Oral Syrup Take 5 mL by mouth 4 times a day as needed for Cough. 120 mL 1 06/16/2023 Active Myrbetriq 25 MG Oral Tablet Extended Release 24 Hour ([facility]) Take 1 Tablet by mouth in the morning. 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 Last Assessment & Plan: [facility] Triage Call: Reviewed last C&S [...] as of this encounter (statuses as of 01/27/2024) Resolved Problems Problem Noted Date Diagnosed Date [...] as of this encounter (statuses as of 01/27/2024) Immunizations Name Administration Dates Next Due COVID-19 mRNA, LNP-s, No Pre serve, 2-Dose Series ([employer]) 08/29/2021,10/23/2020,10/02/2020 COVID-19, MRNA-LNP, 23-24, P F, 30 MCG/0.3 mL, 12 YRS AND ABOVE, IM ([facility]) 08/04/2023 Covid-19, Mrna, Lnp-s, Pf, B ivalent, 30 Mcg, IM, 12 yrs and above ([employer]) 08/02/2022 Influenza, Whole Virus 08/07/2000 Pneumococcal Conjugate [...] Telephone Encounter - Silvina Araujo RN - 01/27/2024 12:38 PM EDT Images from the original note were not included. Received call from the pt's daughter Josselyn who is returning call to [facility]. Josselyn states that she did drop off the urine sample yesterday. Advised Josselyn that the UA is abnormal and that the preliminary urine culture is back. Josselyn states that the pt having a lot of UTI symptoms now. The pt c/o burning with urination, states it does not feel right when she is voiding. The pt has been really tired for the past 3-4 days. The pt is not as agreeable as her usual. She is more feisty and is saying "no" to things. Her blood sugars are up a little bit. The pt's norm is 110s to 120s but she has had recent blood sugar readings of 159, 148 and 130s today. She does not have fever or chills. No nausea or vomiting. She does have loose stools but she takes a lot of laxatives. Josselyn reports that the pt weighed 239- 240 lbs last week and her legs were swollen so she had thept take one Metolazone in addition to her 3 Torsemide in the am and pm. Metolazone was effective. The pt has weighed 234 lbs for the past 2 days which is her norm. Will route to [facility] and the pt's [facility] care team. Silvina BURNS, RN [facility] Intake Triage Coordinator [phone] * Telephone Encounter - Beth Bailon RN - 01/27/2024 10:45 AM EDT [facility] Telephonic Nurse Follow-Up Call [facility] Subprogram: Primary Care at Home Follow Up Call Type: 24 hour follow up Acute issue requiring follow-up call: Other: follow up on urine results. Daughter took to lab 01/26/24 Objective: 01/08/2024 4:45 PM 12/19/2023 11:03 AM [...] made during acute episode Subjective: Condition Status: UTC-left VM Current Concerns: Patient on for follow up call today to check urine results. Daughter took ordered specimen to the lab yesterday after calling to report cloudy urine, increased agitation. Left VM for daughterJosselyn requesting call back with update on how she is doing today. Urinalysis resulted. Triggered culture which is still in process. Results for orders placed or performed in visit on 01/26/24 URINALYSIS, REFLEX TO CULTURE (CUP ONLY) Result Value Ref Range Urinalysis, Reflex to Culture Specimen Specimen collected and received URINALYSIS, REFLEX TO CULTURE Result Value Ref Range Color, Urine Yellow Light Yellow, Yellow, Dark Yellow Clarity, Urine Slightly Cloudy (A) Clear Glucose, Urine Negative Negative mg/dL Bilirubin, Urine Negative Negative Ketone, Urine Negative Negative mg/dL Specific [place], Urine 1.010 1.003 - 1.030 Blood, Urine Moderate (A) Negative pH, Urine >=9.0 (H) 5.0 - 7.5 Units Protein, Urine 30 (A) Negative mg/dL Urobilinogen, Urine 0.2 0.2, 1.0 mg/dL Nitrite, Urine Negative Negative Esterase, Urine Trace (A) Negative RBC, Urine 0-2 0 - 2 /HPF WBC, Urine 0-2 0 - 2 /HPF Bacteria, Urine >200 (A) 0 - 25 /HPF Culture, Urine *Note: Due to a large number of results and/or encounters for the requested time period, some results have not been displayed. A complete set of results can be found in Results Review. Disposition: Follow up call scheduled for tomorrow with [facility] Chief Privacy Officer Future Visits Scheduled: Future Appointments-next 60 days Date/Time Provider Specialty Dept Phone 02/11/2024 11:20 AM (Arrive by 11:05 AM) Sheryl Pena PA-C Dermatology [phone] 03/01/2024 11:20 AM Romel Mcclelland, Ophthalmology [phone] 03/04/2024 5:30 PM Destiny Schultz RN [facility] [phone] 03/30/2024 3:40 PM (Arrive by 3:25 PM) Verónica Benavides MD Family Medicine [phone] 04/21/2024 10:30 AM Chandler Pena MD Urology [phone] 11/24/2024 1:40 PM (Arrive by 1:25 PM) Sheryl Pena PA-C Dermatology [phone] Beth Bailon RN documented in this encounter Plan of Treatment Upcoming Encounters Date Type Department Care Team (Late st Contact Info) Description 01/28/2024 9:30 AM EDT Scheduled Telephone [facility], [facility] 132 [facility] [place] [address] Coordinator, [facility] [address] [place] [address] 02/11/2024 11:20 AM EDT Office Visit Dermatology [address] [place] [address] Sheryl Pena PA-C [address] [place] [address] [place] [address] 03/01/2024 11:20 AM EDT Office Visit Ophthalmology, [facility] 132 [facility] [place] [address] Romel Mcclelland, DO [address] [place] [address] 03/04/2024 5:30 PM EDT Home Visit [facility], [facility] [address] [facility] [place] [address] Destiny Schultz, POPPY [address] [facility] [place] [address] 03/30/2024 3:40 PM EDT Office Visit Family Medicine [address] [place] [phone] Verónica Benavides MD [address] [place] [address] [place] [address] 04/21/2024 10:30 AM EDT Telemedicine Urology, [facility] [address] [facility] [place] [address] Chandler Pena MD [address] [place] [address] [place] [address] 11/24/2024 1:40 PM EDT Office Visit Dermatology [address] [place] [address] Sheryl Pena PA-C [address] [place] [address] [place] [address] Health Maintenance Due Date Last Done Comments [...] Additional history exists CKD PHOS USE SMARTSET 58359 02/08/202401/23, 08/07/2021, 11/09/2019, Additional history exists TSH 03/25/2024 03/25/2023, 0710/2022, 10/28/2022, Additional history exists Influenza Vaccine (FLU shot) (Season Ended) 2024 06/20/2022, 06/20/2022, 06/29/2021, Additional history exists CKD HGB USE SMARTSET 59869 05/26/202405/26, 05/26/2023, 04/07/2023, Additional history exists Pneumococcal [...] Documents on File Type Date Recorded Patient [place] Gold Attendant Expl anation Advance Directives and Living Will 08/10/2021 ADVANCE DIRECTIVE / LIVING WILL LIVING WILL Healthcare Agents on File Name Relationship Healthcare Agent Relationshi p Communication [facility] Power of Attor nathalie Care Teams Transformer Assembler Relationship Specialty Start Date End Date Verónica Benavides MD [address] [place] [address] [place] [address] PCP - General Family Medicine 09/16/14 documented as of this encounter
--- OUTSIDE RECORDS SUMMARY | 2024-04-24 11:17 | External Medical Summary | Summary of Care ---
Author Name Unknown Organization [facility] Address [address] [place] [address] Phone [phone] Care Team Providers Care Quill Fixer Name Role Phone Verónica Benavides MD Primary Care Provide r Reason for Visit * Reason Onset Date Comments [facility]: Maintenance 01/31/2024 Encounter Details Date Type Department Care Team (Late st Contact Info) Description 01/31/2024 10:30 AM EDT Scheduled Telephone [facility], [facility] [address] [place] [address] [facility], Nurse [facility] [address] [place] [address] Allergies Active Allergy Reactions Criticality Noted Date Comments Adhesive Tape Medium 01/30/2022 Ibuprofen Hives 01/13/2012 Aspirin Hives,Rash 09/15/2000 Sulfamethoxazole-Trimeth oprim Nausea/vomiting,Othe r (Please comment) 10/27/2020 Dizziness Ciprofloxacin Hcl 06/16/2019 Hoarse, dizzy,disoriented Morphine 09/21/2021 Blacked out Penicillins Hives,Rash 09/15/2000 Prednisone 12/30/2017 Weakness/memory changes/blurred vision documented as of this encounter (statuses as of 01/31/2024) Medications Medication Sig Dispensed Refills Start Date [...] mouth in the morning. 08/08/2021 Active Nystatin 023892 UNIT/GM External Powder (Nystop)Indications: Lydia rash of [...] Tablet 3 07/08/2023 Active OneTouch Delica Plus [id number] :Type 2 diabetes mellitus with hemoglobin A1c goal of less than 8.0% ([facility]) Test up to two times daily or as directed by [facility] pharmacist 200 Each 3 07/11/2023 [...] no improvement on day 3, contact [facility] for possible home visit 1 Each [...] as of this encounter (statuses as of 01/31/2024) Active Problems Problem Noted Date Diagnosed Date [...] carrier 06/29/2021 Last Assessment & Plan: [facility] Triage Call: Reviewed last C&S - [...] as of this encounter (statuses as of 01/31/2024) Resolved Problems Problem Noted Date Diagnosed Date [...] as of this encounter (statuses as of 01/31/2024) Immunizations Name Administration Dates Next Due COVID-19 mRNA, LNP-s, No Pre serve, 2-Dose Series ([employer]) 08/29/2021,10/23/2020,10/02/2020 COVID-19, MRNA-LNP, 23-24, P F, 30 MCG/0.3 mL, 12 YRS AND ABOVE, IM ([employer]) 08/04/2023 Covid-19, Mrna, Lnp-s, Pf, B ivalent, [...] Telephone Encounter - Carol Portillo RN - 01/31/2024 2:45 PM EDT [facility] Telephonic Nurse Follow-Up Call [facility] Subprogram: Primary Care at Home Follow Up Call Type: Weekend Call Acute issue requiring follow-up call: Complicated UTI and Shaky Objective: 01/08/2024 4:45 PM 12/19/2023 11:03 AM [...] DME needs identified Medications: New medication(s) added: Keflex 500mg tid ordered 01/27. Subjective: Condition Status: No change in symptoms Current Concerns: Spoke with daughter Josselyn, reports patient is unchanged from yesterday, still complaining of shakiness at time, refused to get weighed this morning as it was unimportant to her. Compliant with all medications and antibiotic, BS was 120 this morning, denies any pain, reports no UTI symptoms at all, confusion remains the same per daughter. Daughter to continue with antibiotic and will call [facility] with any change in condition. Disposition: Issue resolved. All appropriate follow up scheduled. Future Visits Scheduled: Future Appointments-next 60 days Date/Time Provider Specialty Dept Phone 02/11/2024 11:20 AM (Arrive by 11:05 AM) Sheryl Pena PA-C Dermatology [phone] 03/01/2024 11:20 AM Romel Mcclelland DO Ophthalmology [phone] 03/04/2024 5:30 PM Destiny Schultz RN [facility] [phone] 03/30/2024 3:40 PM (Arrive by 3:25 PM) Verónica Benavides MD Family Medicine [phone] 04/21/2024 10:30 AM Chandler Pena MD Urology [phone] 11/24/2024 1:40 PM (Arrive by 1:25 PM) Sheryl Pena PA-C Dermatology [phone] Carol Portillo RN documented in this encounter Plan of Treatment Upcoming Encounters Date Type Department Care Team (Late st Contact Info) Description 02/11/2024 11:20 AM EDT Office Visit Dermatology [address] [place] [address] Sheryl Pena PA-C [address] [place] [address] [place] [address] 03/01/2024 11:20 AM EDT Office Visit Ophthalmology, [facility] 132 [facility] [place] [address] Romel Mcclelland DO [address] [place] [address] [place] [address] 03/04/2024 5:30 PM EDT [facility] Visit [facility], [facility] 132 [facility] [place] [address] Destiny Schultz, POPPY 132 [facility] [place] [address] 03/30/2024 3:40 PM EDT Office Visit Family Medicine [address] [place] [phone] Verónica Benavides MD [address] [place] [address] [place] [address] 04/21/2024 10:30 AM EDT Telemedicine Urology, [facility] 132 [facility] [place] [address] Chandler Pena MD 27 [facility] [address] [place] [address] 11/24/2024 1:40 PM EDT Office Visit Dermatology [address] [place] [address] Sheryl Pena PA-C [address] [place] [address] [place] [address] Health Maintenance Due Date Last Done Comments [...] Additional history exists CKD PHOS USE SMARTSET 50592 02/08/202401/23, 08/07/2021, 11/09/2019, Additional history exists TSH 03/25/2024 03/25/2023, 07/0 10/2022, 10/28/2022, Additional history exists Influenza Vaccine (FLU shot) (Season Ended) 2024 06/20/2022, 06/20/2022, 06/29/2021, Additional history exists CKD HGB USE SMARTSET 18050 05/26/202405/26, 05/26/2023, 04/07/2023, Additional history exists Pneumococcal [...] Documents on File Type Date Recorded Patient Financial Services Internship Expl anation Advance Directives and Living Will 08/10/2021 ADVANCE DIRECTIVE / LIVING WILL LIVING WILL Healthcare Agents on File Name Relationship Healthcare Agent Relationshi p Communication Josselyn Judd Adult Child Health Care Power of Attor nathalie Care Teams Quill Fixer Relationship Specialty Start Date End Date Verónica Benavides MD [address] [place] [address] [place] [address] PCP - General Family Medicine 09/16/14 documented as of this encounter
--- OUTSIDE RECORDS SUMMARY | 2024-04-24 11:17 | External Medical Summary | Summary of Care ---
Author Name Unknown Organization [facility] Address [address] [place] [address] Phone [phone] Care Team Providers Care Lining Maker Hand Name Role Phone Verónica Benavides MD Primary Care Provide r Reason for Visit * Reason Onset Date Comments [facility]: Maintenance 01/28/2024 Encounter Details Date Type Department Care Team (Late st Contact Info) Description 01/28/2024 9:30 AM EDT Scheduled Telephone [facility], [facility] [address] [facility] [place] [address] Coordinator, [facility] 132 [facility] [place] [address] Allergies Active Allergy Reactions Criticality Noted Date Comments Adhesive Tape Medium 01/30/2022 Ibuprofen Hives 01/13/2012 Aspirin Hives,Rash 09/15/2000 Sulfamethoxazole-Trimeth oprim Nausea/vomiting,Othe r (Please comment) 10/27/2020 Dizziness Ciprofloxacin Hcl 06/16/2019 Hoarse, dizzy,disoriented Morphine 09/21/2021 Blacked out Penicillins Hives,Rash 09/15/2000 Prednisone 12/30/2017 Weakness/memory changes/blurred vision documented as of this encounter (statuses as of 01/28/2024) Medications Medication Sig Dispensed Refills Start Date [...] mouth in the morning. 08/08/2021 Active Nystatin 297453 UNIT/GM External Powder (Nystop)Indications :Lydia rash of [...] XL)Indications:Non- ischemic cardiomyopathy (HCC),Coronary artery disease involving [place] coronary artery of [place] heart without angina pectoris,HTN, goal below [...] Tablet 3 07/08/2023 Active OneTouch Delica Plus [id number] s:Type 2 diabetes mellitus with hemoglobin A1c [...] If no improvement on day 3, contact [facility] for possible home visit 1 [...] this for 10 days. 30 Capsule 01/28/2024 02/07/20 24 Active Fosfomycin Tromethamine 3 GM Oral Packet (Monurol)Indication s:Complicated UTI (urinary tract infection) Take 3 g by mouth every 3 days. 3 Packet 06/04/2023 01/28/20 24 Discontinu ed(Patient preference /discontin uation) Nitrofurantoin Monohyd Macro 100 MG Oral Capsule (Macrobid) Take 1 Capsule by mouth at bedtime. With food. 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 Last Assessment & Plan: [facility] Triage Call: Reviewed last C&S [...] -- -- -- -- BNP (NT-PRO-BNP) - [facility] pg/mL -- -- -- -- -- 380* [...] Continue synthroid Coronary artery disease invo lving [place] coronary artery of [place] heart without angina pectoris 07/03/2012 Overview: [...] as of this encounter (statuses as of 01/28/2024) Resolved Problems Problem Noted Date Diagnosed Date [...] as of this encounter (statuses as of 01/28/2024) Immunizations Name Administration Dates Next Due COVID-19 mRNA, LNP-s, No Pre serve, 2-Dose Series ([email or web address]) 08/29/2021,10/23/2020,10/02/2020 COVID-19, MRNA-LNP, 23-24, P F, 30 MCG/0.3 mL, 12 YRS AND ABOVE, IM ([employer]) 08/04/2023 Covid-19, Mrna, Lnp-s, Pf, B ivalent, 30 Mcg, IM, 12 yrs and above ([email or web address]) 08/02/2022 Pneumococcal Conjugate Vacc, 13 Valent (Prevnar) [...] encounter Miscellaneous Notes * Telephone Encounter - Beht Bailon RN - 01/28/2024 8:22 AM EDT [facility] Telephonic Nurse Follow-Up Call [facility] Subprogram: Primary Care at Home [...] added: pending provider review Subjective: Condition Status: Worsening of symptoms -now has dysuria since last evening. Current Concerns: Spoke with daughter, Josselyn. Patient continues to have increased weakness, agitation. Blood sugars also reading higher than patient's normal (140-150s) +dysuria now Denies fever/chills, flank pain. Denies n/v or abdominal pain. Pushing fluids up to her daily limit of 1500 ml per day. Culture resulted Confirmed pharmacy as [facility] in [place] Results for orders placed or performed in [...] Negative Ketone, Urine Negative Negative mg/dL Specific [place], Urine 1.010 1.003 - 1.030 Blood, Urine [...] Catch Result Value Ref Range Culture Growth >100,000 colonies/mL Proteus mirabilis (A) Susceptibility Proteus mirabilis - MICROBROTH DILUTIONS Ampicillin Susceptible [...] can be found in Results Review. Disposition: Routed to [facility] and/or [facility] Care Team for further advice and Follow up call scheduled for tomorrow with [employer] Specialist Future Visits Scheduled: Future Appointments-next 60 days Date/Time Provider Specialty Dept Phone 01/28/2024 9:30 AM Lise Connell [facility] [phone] 02/11/2024 11:20 AM (Arrive by 11:05 AM) Sheryl Pena PA-C Dermatology [phone] 03/01/2024 11:20 AM Romel Mcclelland, Ophthalmology [phone] 03/04/2024 5:30 PM Destiny Schultz RN [facility] [phone] 03/30/2024 3:40 PM (Arrive by 3:25 PM) Verónica Benavides MD Family Medicine [phone] 04/21/2024 10:30 AM Chandler Pena MD Urology [phone] 11/24/2024 1:40 PM (Arrive by 1:25 PM) Sheryl Pena PA-C Dermatology [phone] Beth Bailon, RN documented in this encounter Plan of Treatment Upcoming Encounters Date Type Department Care Team (Late st Contact Info) Description 02/11/2024 11:20 AM EDT Office Visit Dermatology [address] [place] [address] hSeryl Pena PA-C [address] [place] [address] [place] [address] 03/01/2024 11:20 AM EDT Office Visit Ophthalmology, [address] [place] [address] Romel Mcclelland, DO [address] [place] [address] [place] [address] 03/04/2024 5:30 PM EDT Home Visit [facility], [facility] [address] [place] [address] Destiny Schultz, RN 132 [facility] [place] [address] 03/30/2024 3:40 PM EDT Office Visit Family Medicine [address] [place] [phone] Verónica Benavides MD [address] [place] [address] [place] [address] 04/21/2024 10:30 AM EDT Telemedicine Urology, [facility] 132 [facility] [place] [address] Chandler Pean MD 27 [facility] [address] [place] [address] 11/24/2024 1:40 PM EDT Office Visit Dermatology [address] [place] [address] Sheryl Pena PA-C [address] [place] [address] [place] [address] Health Maintenance Due Date Last Done Comments [...] Additional history exists CKD PHOS USE SMARTSET 83931 02/08/202401/23, 08/07/2021, 11/09/2019, Additional history exists TSH 03/25/2024 03/25/2023, 10/2022, 10/28/2022, Additional history exists Influenza Vaccine (FLU shot) (Season Ended) 2024 06/20/2022, 06/20/2022, 06/29/2021, Additional history exists CKD HGB USE SMARTSET 76948 05/26/202405/26, 05/26/2023, 04/07/2023, Additional history exists Pneumococcal [...] on File Type Date Recorded 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
--- OUTSIDE RECORDS SUMMARY | 2024-04-24 11:17 | External Medical Summary | Summary of Care ---
Author Name Unknown Organization [facility] Address [address] [place] [address] Phone [phone] Care Team Providers Care Principal Technical Writer Name Role Phone Verónica Benavides MD Primary Care Provide r Reason for Visit * Reason Onset Date Comments [facility]: Maintenance 01/28/2024 Encounter Details Date Type Department Care Team (Late st Contact Info) Description 01/28/2024 9:30 AM EDT Scheduled Telephone [facility], [facility] 132 [facility] [place] [address] Coordinator, [facility] 132 [facility] [place] [address] Allergies Active Allergy Reactions Criticality Noted Date [...] mouth in the morning. 08/08/2021 Active Nystatin 182962 UNIT/GM External Powder (Nystop)Indications :Lydia rash of [...] XL)Indications:Non- ischemic cardiomyopathy (HCC),Coronary artery disease involving [place] coronary artery of [place] heart without angina pectoris,HTN, goal below 140/90 [...] long-term current use of insulin ([facility]),Type 2 diabetes mellitus with hemoglobin [...] Tablet 3 07/08/2023 Active OneTouch Delica Plus [id number] s:Type 2 diabetes mellitus with hemoglobin A1c goal of less than 8.0% ([facility]) Test up to two times daily or as directed by [facility] pharmacist 200 Each 3 07/11/2023 [...] no improvement on day 3, contact [facility] for possible home visit 1 Each [...] carrier 06/29/2021 Last Assessment & Plan: [facility] Triage Call: Reviewed last C&S - [...] -- -- -- -- [facility] ([facility] -- -- -- -- -- 380* [...] Continue synthroid Coronary artery disease invo lving southern [place] coronary artery of southern [place] heart without angina pectoris 07/03/2012 Overview: 60% [...] mRNA, LNP-s, No Pre serve, 2-Dose Series ([employer]) 08/29/2021,10/23/2020,10/02/2020 COVID-19, MRNA-LNP, 23-24, P F, 30 MCG/0.3 mL, 12 YRS AND ABOVE, IM ([employer]) 08/04/2023 Covid-19, Mrna, Lnp-s, Pf, B ivalent, 30 Mcg, IM, 12 yrs and above ([email or web address]) 08/02/2022 Influenza, Whole Virus 08/07/2000 Pneumococcal Conjugate [...] encounter Miscellaneous Notes * Addendum Note - Aroldo Telles PA-C - 01/28/2024 8:50 AM EDTAddended by: AROLDO TELLES on: 01/28/2024 08:50 AM Modules accepted: Orders * Telephone Encounter - Aroldo Telles PA-C - 01/28/2024 8:45 AM EDT [facility] [employer] Phone Encounter Thank you for your assistance in the care of this patient today. 88 year old year old female patient who presents today with UTI symptoms. A urinalysis with reflex to culture was done yesterday which was preliminary finding of greater than 100,000 colonies oxidasenegative non lactose fermenting g negative bacilli. Sensitivities are completed. Reports symptoms of dysuria, increased fatigue, changes in her mental status. Assessment UTI Culture Growth >100,000 colonies/mL Proteus mirabilis Abnormal <10,000 colonies/ml mixed normal rachid Resulting Agency: Susceptibility Proteus mirabilis MICROBROTH DILUTIONS Ampicillin Susceptible Cefazolin Susceptible Cefepime Susceptible Ceftriaxone Susceptible Ciprofloxacin Susceptible 1 Gentamicin Susceptible Piperacillin Tazobactam Susceptible Trimeth/Sulfamethoxazole Susceptible Allergies as of 01/28/2024 - Reviewed 01/21/2024 Allergen Reaction Noted Adhesive tape 01/30/2022 Advil [ibuprofen] Hives 01/13/2012 Aspirin Hives and Rash 09/15/2000 Bactrim [sulfamethoxazole-trimethoprim] Nausea/vomiting and Other (Please comment) 10/27/2020 Ciprofloxacin hcl 06/16/2019 Morphine 09/21/2021 Penicillins Hives and Rash 09/15/2000 Prednisone 12/30/2017 Recommendations: Keflex 500 mg twice daily for 10 days. This note was prepared with the help of fluency and if there is any mis-spelled words , sentences or something which doesn't represent the content of the subject that could be technical error and please refer to the author for clarification. * Telephone Encounter - Beth Bailon RN - 01/28/2024 8:22 AM EDT [facility] Telephonic Nurse Follow-Up Call [facility] Subprogram: Primary Care at Home Follow [...] per day. Culture resulted Confirmed pharmacy as [facility] in [place] Results for orders placed or performed in [...] Negative Ketone, Urine Negative Negative mg/dL Specific [place], Urine 1.010 1.003 - 1.030 Blood, Urine [...] found in Results Review. Disposition: Routed to [facility] and/or [facility] Care Team for further advice and Follow up call scheduled for tomorrow with MECHANICAL UNIT REPAIRER Visiting Nurse Future Visits Scheduled: Future Appointments-next 60 days Date/Time Provider Specialty Dept Phone 01/28/2024 9:30 AM Lise Connell [facility] [phone] 02/11/2024 11:20 AM (Arrive by 11:05 AM) Sheryl Pena PA-C Dermatology [phone] 03/01/2024 11:20 AM Romel Mcclelland DO Ophthalmology [phone] 03/04/2024 5:30 PM Destiny Schultz RN [facility] [phone] 03/30/2024 3:40 PM (Arrive by 3:25 PM) Verónica Benavides MD Family Medicine [phone] 04/21/2024 10:30 AM Chandler Pean MD Urology [phone] 11/24/2024 1:40 PM (Arrive by 1:25 PM) Sheryl Pena PA-C Dermatology [phone] Beth Bailon, RN documented in this encounter Plan of Treatment Upcoming Encounters Date Type Department Care Team (Late st Contact Info) Description 02/11/2024 11:20 AM EDT Office Visit Dermatology [address] [place] [address] Sheryl Pena PA-C [address] [place] [address] [place] [address] 03/01/2024 11:20 AM EDT Office Visit Ophthalmology, [address] [place] [address] Romel Mcclelland, [address] [place] [address] [place] [address] 03/04/2024 5:30 PM EDT [facility] Visit [facility], [facility] 132 [facility] [place] [address] Destiny Schultz, RN 132 [facility] [place] [address] 03/30/2024 3:40 PM EDT Office Visit Family Medicine [address] [place] [phone] Verónica Benavides MD [address] [place] [address] [place] [address] 04/21/2024 10:30 AM EDT Telemedicine Urology, [facility] 132 [facility] [place] [address] Chandler Pena MD 27 [facility] [address] [place] [address] 11/24/2024 1:40 PM EDT Office Visit Dermatology [address] [place] [address] Sheryl Pena PA-C [address] [place] [address] [place] [address] Health Maintenance Due Date Last Done Comments [...] Additional history exists CKD PHOS USE SMARTSET 71011 02/08/202401/23, 08/07/2021, 11/09/2019, Additional history exists TSH 03/25/2024 03/25/2023, 10/2022, 10/28/2022, Additional history exists Influenza Vaccine (FLU shot) (Season Ended) 2024 06/20/2022, 06/20/2022, 06/29/2021, Additional history exists CKD HGB USE SMARTSET 46870 05/26/202405/26, 05/26/2023, 04/07/2023, Additional history exists Pneumococcal [...] Documents on File Type Date Recorded Patient Monitoring Coordinator Expl anation Advance Directives and Living Will 08/10/2021 ADVANCE DIRECTIVE / LIVING WILL LIVING WILL Healthcare Agents on File Name Relationship Healthcare Agent [facility] Communication Josselyn Judd Adult Child Health Care Power of Attor nathalie Care Teams Principal Technical Writer Relationship Specialty Start Date End Date Verónica Benavides MD [address] [place] [address] [place] [address] PCP - General Family Medicine 09/16/14 documented as of this encounter
--- OUTSIDE RECORDS SUMMARY | 2024-04-24 11:17 | External Medical Summary | Summary of Care ---
Author Name Unknown Organization [facility] Address [address] [place] [address] Phone [phone] Care Team Providers Care Compliance Attorney Name Role Phone Verónica Benavides MD Primary Care Provide r Reason for Visit * Reason Onset Date Comments [facility]: Maintenance 01/30/2024 Encounter Details Date Type Department Care Team (Late st Contact Info) Description 01/30/2024 12:45 PM EDT Scheduled Telephone [facility], [facility] [address] [facility] [place] [address] Coordinator, [facility] [place] [address] Allergies Active Allergy Reactions Criticality Noted Date Comments Adhesive Tape Medium 01/30/2022 Ibuprofen Hives 01/13/2012 Aspirin Hives,Rash 09/15/2000 Sulfamethoxazole-Trimeth oprim Nausea/vomiting,Othe r (Please comment) 10/27/2020 Dizziness Ciprofloxacin Hcl 06/16/2019 Hoarse, dizzy,disoriented Morphine 09/21/2021 Blacked out Penicillins Hives,Rash 09/15/2000 Prednisone 12/30/2017 Weakness/memory changes/blurred vision documented as of this encounter (statuses as of 01/30/2024) Medications Medication Sig Dispensed Refills Start Date [...] mouth in the morning. 08/08/2021 Active Nystatin 249255 UNIT/GM External Powder (Nystop)Indications: Lydia rash of [...] XL)Indications:Non-i schemic cardiomyopathy (HCC),Coronary artery disease involving kaw coronary artery of kaw heart without angina pectoris,HTN, goal below 140/90 [...] hemoglobin A1c goal of less than 8.0% ([facility]) TEST UP TO FOUR TIMES [...] Tablet 3 07/08/2023 Active OneTouch Delica Plus [id number] :Type 2 diabetes mellitus with hemoglobin A1c goal of less than 8.0% ([facility]) Test up to two times daily or as directed by [facility] pharmacist 200 Each 3 07/11/2023 Active [...] If no improvement on day 3, contact [facility] for possible home visit 1 Each [...] as of this encounter (statuses as of 01/30/2024) Active Problems Problem Noted Date Diagnosed Date [...] 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 Last Assessment & Plan: [facility] Triage Call: Reviewed last C&S - [...] Continue synthroid Coronary artery disease invo lving kaw coronary artery of kaw heart without angina pectoris 07/03/2012 Overview: 60% [...] as of this encounter (statuses as of 01/30/2024) Resolved Problems Problem Noted Date Diagnosed Date [...] as of this encounter (statuses as of 01/30/2024) Immunizations Name Administration Dates Next Due COVID-19 mRNA, LNP-s, No Pre serve, 2-Dose Series ([employer]) 08/29/2021,10/23/2020,10/02/2020 COVID-19, MRNA-LNP, 23-24, P F, 30 MCG/0.3 mL, 12 YRS AND ABOVE, IM ([employer]) 08/04/2023 Covid-19, Mrna, Lnp-s, Pf, B ivalent, [...] Telephone Encounter - Carol Portillo RN - 01/30/2024 2:50 PM EDT Phone call to daughter to make her aware of [facility] stating to encourage the patient to continue with the antibiotic overnight. Is less likely that this antibiotic is causing these issues at the same time providing the chance to get this "infection resolved". Verbalized understanding. KATY Lynn [facility] * Telephone Encounter - Carol Portillo RN - 01/30/2024 11:31 AM EDT [facility] Telephonic Nurse Follow-Up Call [facility] Subprogram: Primary Care at Home Follow Up Call Type: Routine follow up call / Status Check Acute issue requiring follow-up call: Other: F/U UTI symptoms. Keflex 500mg tid ordered 01/27. Objective: 01/08/2024 4:45 PM 12/19/2023 11:03 AM [...] needs identified Medications: New medication(s) added: Cephalexin 500mg Subjective: Condition Status: No change in symptoms Current Concerns: Spoke with Josselyn, daughter, reports she is not having dysuria, no hematuria, does have urgency and frequency, still confused at times, no fever/chills, no flank pain. Daughter did report that patient is having shakiness, felt she was too shaky for a shower this morning, and got a sponge bath. Theshakiness has patient and daughter concerned and unsure if it is from the Keflex. Encouraged to continue to push fluids up to daily limit and report if having fever, chills, increase in lethergy/changes in mental status. Will place for a follow up call tomorrow Reviewed s/s and prevention of UTI: Symptoms: -burning with urination -increased urination -cloudy urine -dark urine -foul smelling urine -fever -weakness/change in mental status Prevention: -drink plenty of fluids -wear cotton panties -wipe from front to back -avoid delayed bladder emptying Disposition: Routed to [facility] and/or [facility] Care Team for further advice and Follow up call scheduled for tomorrow with [employer] Future Visits Scheduled: Future Appointments-next 60 days Date/Time Provider Specialty Dept Phone 01/30/2024 12:45 PM Coordinator, Lise Lepe [facility] [phone] 02/11/2024 11:20 AM (Arrive by 11:05 AM) Sheryl Pena PA-C Dermatology [phone] 03/01/2024 11:20 AM Romel Mcclelland, Ophthalmology [phone] 03/04/2024 5:30 PM Destiny Schultz RN [facility] [phone] 03/30/2024 3:40 PM (Arrive by 3:25 PM) Verónica Benavides MD Family Medicine [phone] 04/21/2024 10:30 AM Chandler Pena MD Urology [phone] 11/24/2024 1:40 PM (Arrive by 1:25 PM) Sheryl Pena PA-C Dermatology [phone] Carol Portillo, RN documented in this encounter Plan of Treatment Upcoming Encounters Date Type Department Care Team (Late st Contact Info) Description 01/31/2024 10:30 AM EDT Scheduled Telephone [facility], [address] [place] [address] [facility], Nurse [facility] [place] [address] 02/11/2024 11:20 AM EDT Office Visit Dermatology [address] [place] [address] Sheryl Pena PA-C [address] [place] [address] [place] [address] 03/01/2024 11:20 AM EDT Office Visit Ophthalmology, [facility] [address] [facility] [place] [address] Romel Mcclelland T, [address] [address] 03/04/2024 5:30 PM EDT Home Visit [facility], [facility] [address] [facility] [place] [address] Destiny Schultz, POPPY 132 [facility] [place] [address] 03/30/2024 3:40 PM EDT Office Visit Family Medicine [address] [place] [phone] Verónica Benavides MD [address] [place] [address] [place] [address] 04/21/2024 10:30 AM EDT Telemedicine Urology, [facility] [address] [place] [address] Chandler Pena MD 27 [facility] [address] [place] [address] 11/24/2024 1:40 PM EDT Office Visit Dermatology [address] [place] [address] Sheryl Pena PA-C [address] [place] [address] [place] [address] Health Maintenance Due Date Last Done Comments [...] Additional history exists CKD PHOS USE SMARTSET 17350 02/08/202401/23, 08/07/2021, 11/09/2019, Additional history exists TSH 03/25/2024 03/25/2023, 07/0 10/2022, 10/28/2022, Additional history exists Influenza Vaccine (FLU shot) (Season Ended) 2024 06/20/2022, 06/20/2022, 06/29/2021, Additional history exists CKD HGB USE SMARTSET 68832 05/26/202405/26, 05/26/2023, 04/07/2023, Additional history exists Pneumococcal [...] Documents on File Type Date Recorded Patient Managed Care Provider Expl anation Advance Directives and Living Will 08/10/2021 ADVANCE DIRECTIVE / LIVING WILL LIVING WILL Healthcare Agents on File Name Relationship Healthcare Agent [facility] p Communication Josselyn [facility] Adult Child Health Care Power of Attor nathalie Care Teams Compliance Attorney Relationship Specialty Start Date End Date Verónica Benavides MD [address] [place] [address] [place] [phone] PCP - General Family Medicine 09/16/14 documented as of this encounter
--- OUTSIDE RECORDS SUMMARY | 2024-04-24 11:17 | External Medical Summary | Summary of Care ---
Author Name Unknown Organization [facility] Address [address] [place] [address] Phone [phone] Care Team Providers Care Medical Donation Professional Name Role Phone Verónica Benavides MD Primary Care Provide r Reason for Visit * Reason Onset Date Comments [facility]: Maintenance 01/28/2024 Encounter Details Date Type Department Care Team (Late st Contact Info) Description 01/28/2024 9:30 AM EDT Scheduled Telephone [facility], [facility] 132 [facility] [place] [address] Coordinator, [facility] 132 [facility] [place] [address] Allergies Active Allergy Reactions Criticality Noted Date [...] mouth in the morning. 08/08/2021 Active Nystatin 280823 UNIT/GM External Powder (Nystop)Indications :Lydia rash of [...] XL)Indications:Non- ischemic cardiomyopathy (HCC),Coronary artery disease involving chemehuevi coronary artery of chemehuevi heart without angina pectoris,HTN, goal below 140/90 [...] Tablet 3 07/08/2023 Active OneTouch Delica Plus [id number] s:Type 2 diabetes mellitus with hemoglobin A1c [...] -- -- -- -- BNP (NT-PRO-BNP) - [facility] pg/mL -- -- -- -- -- 380* [...] Continue synthroid Coronary artery disease invo lving chemehuevi coronary artery of chemehuevi heart without angina pectoris 07/03/2012 Overview: 60% [...] mRNA, LNP-s, No Pre serve, 2-Dose Series ([employer]) 08/29/2021,10/23/2020,10/02/2020 COVID-19, MRNA-LNP, 23-24, P F, 30 MCG/0.3 mL, 12 YRS AND ABOVE, IM ([employer]-ComirnatSina) 08/04/2023 Covid-19, Mrna, Lnp-s, Pf, B ivalent, 30 Mcg, IM, 12 yrs and above ([employer]) 08/02/2022 Influenza, Whole Virus 08/07/2000 Pneumococcal Conjugate [...] Encounter - Beth Bailon RN - 01/28/2024 9:19 AM EDT Call to daughter, Jsoselyn. Updated her on antibiotic sent into pharmacy. Reviewed dosing instructions. Verbalized understanding. Pt on for additional call tomorrow to check status. * Addendum Note - Aroldo Telles PA-C - 01/28/2024 8:50 AM EDTAddended by: AROLDO TELLES on: 01/28/2024 08:50 AM Modules accepted: Orders * Telephone Encounter - Aroldo Telles PA-C - 01/28/2024 8:45 AM EDT [facility] Remote Medical Command Phone [...] Bailon RN - 01/28/2024 8:22 AM EDT [facility] Telephonic Nurse Follow-Up Call [facility] [...] per day. Culture resulted Confirmed pharmacy as [facility] in [place] Results for orders placed or performed in [...] Negative Ketone, Urine Negative Negative mg/dL Specific [place], Urine 1.010 1.003 - 1.030 Blood, Urine [...] found in Results Review. Disposition: Routed to [facility] and/or [facility] Care Team for further advice and [facility] Future Visits Scheduled: Future Appointments-next 60 days Date/Time Provider Specialty Dept Phone 01/28/2024 9:30 AM CoordinatorLise [facility] [phone] 02/11/2024 11:20 AM (Arrive by 11:05 AM) Sheryl Pena PA-C Dermatology [phone] 03/01/2024 11:20 AM Romel Mcclelland, DO Ophthalmology [phone] 03/04/2024 5:30 PM Destiny Schultz RN [facility] [phone] 03/30/2024 3:40 PM (Arrive by 3:25 PM) Verónica Benavides MD Family Medicine [phone] 04/21/2024 10:30 AM Chandler Pena MD Urology [phone] 11/24/2024 1:40 PM (Arrive by 1:25 PM) Sheryl Pena PA-C Dermatology [phone] Beth Bailon, POPPY documented in this encounter Plan of Treatment Upcoming Encounters Date Type Department Care Team (Late st Contact Info) Description 01/29/2024 10:00 AM EDT Scheduled Telephone [facility], [address] [place] [address] Coordinator, [facility] [address] [place] [address] [place] [phone] 02/11/2024 11:20 AM EDT Office Visit Dermatology [address] [place] [address] Sheryl Pena PA-C [address] [place] [address] [place] [address] 03/01/2024 11:20 AM EDT Office Visit Ophthalmology, [facility] 132 [facility] [place] [address] Romel Mcclelland, [address] [address] 03/04/2024 5:30 PM EDT [facility] 132 [facility] [place] [address] Destiny Schultz RN 132 [facility] [place] [address] 03/30/2024 3:40 PM EDT Office Visit Family Medicine [address] [place] [phone] Verónica Benavides MD [address] [place] [address] [place] [address] 04/21/2024 10:30 AM EDT Telemedicine Urology, [facility] 132 [facility] [place] [address] Chandler Pena MD [address] [address] [place] [address] 11/24/2024 1:40 PM EDT Office Visit Dermatology [address] [place] [address] Sheryl Pena PA-C [address] [place] [address] [place] [address] Health Maintenance Due Date Last Done Comments [...] Additional history exists CKD PHOS USE SMARTSET 54197 02/08/202401/23, 08/07/2021, 11/09/2019, Additional history exists TSH 03/25/2024 03/25/2023, 07/0 10/2022, 10/28/2022, Additional history exists Influenza Vaccine (FLU shot) (Season Ended) 2024 06/20/2022, 06/20/2022, 06/29/2021, Additional history exists CKD HGB USE SMARTSET 73320 05/26/202405/26, 05/26/2023, 04/07/2023, Additional history exists Pneumococcal [...] Documents on File Type Date Recorded Patient Point Of Sale Associate Expl anation Advance Directives and Living Will 08/10/2021 ADVANCE DIRECTIVE / LIVING WILL LIVING WILL Healthcare Agents on File Name Relationship Healthcare Agent Relationshi p Communication [facility] Adult Child Health Care Power of Attor nathalie Care Teams Medical Donation Professional Relationship Specialty Start Date End Date Verónica Benavides MD [address] [place] [address] [place] [address] PCP - General Family Medicine 09/16/14 documented as of this encounter
--- OUTSIDE RECORDS SUMMARY | 2024-04-24 11:17 | External Medical Summary | Summary of Care ---
Author Name Unknown Organization [facility] Address [address] [place] [address] Phone [phone] Care Team Providers Care Local Company Hazmat Driver Name Role Phone Verónica Benavides MD Primary Care Provide r Reason for Visit * Reason Onset Date Comments [facility]: Maintenance 01/27/2024 Encounter Details Date Type Department Care Team (Late st Contact Info) Description 01/27/2024 9:30 AM EDT Scheduled Telephone [facility], [facility] 132 [facility] [place] [address] Coordinator, [facility] [address] [facility] [place] [address] Allergies Active Allergy Reactions Criticality Noted Date [...] mouth in the morning. 08/08/2021 Active Nystatin 661706 UNIT/GM External Powder (Nystop)Indications :Lydia rash of [...] XL)Indications:Non- ischemic cardiomyopathy (HCC),Coronary artery disease involving cahto coronary [...] long-term current use of insulin ([facility]),Type 2 diabetes mellitus with hemoglobin [...] Tablet 3 07/08/2023 Active OneTouch Delica Plus [id number] s:Type 2 diabetes mellitus with hemoglobin A1c goal of less than 8.0% ([facility]) Test up to two times daily or as directed by [facility] pharmacist 200 Each 3 07/11/2023 Active [...] at bedtime 3.5 g 3 01/07/2024 Active Fosfomycin Tromethamine 3 GM Oral Packet [...] Date Recurrent UTI (urinary tract infection) 12/17/19 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/26/2023 Transient confusion 01/30/2023 [...] of inactive term DIVERTICULOSIS OF COLON 03/21/2004 090 01/2018 Calculus of kidney 09/15/2003 8 Hypercalcemia 01/24/2003 [...] mRNA, LNP-s, No Pre serve, 2-Dose Series ([place] [email or web address]) 08/29/2021,10/23/2020,10/02/2020 COVID-19, MRNA-LNP, 23-24, P F, 30 MCG/0.3 mL, 12 YRS AND ABOVE, IM ([facility]natPlumbr) 08/04/2023 Covid-19, Mrna, Lnp-s, Pf, B ivalent, 30 Mcg, IM, 12 yrs and above ([place] [email or web address]) 08/02/2022 Influenza, Whole Virus 08/07/2000 Pneumococcal Conjugate [...] Telephone Encounter - Aroldo Telles PA-C - 01/27/2024 2:55 PM EDT [facility] Remote Medical Command Phone Encounter Thank you for your assistance in the care of this patient today. 88 year old year old female patient who presents today with UTI symptoms. A urinalysis with reflex to culture was done yesterday which was preliminary finding of greater than 100,000 colonies oxidasenegative non lactose fermenting g negative bacilli. Sensitivities are pending. Reports symptoms of dysuria, increased fatigue, changes in her mental status. Assessment UTI Recommendations: Await sensitivities This note was prepared with the help of fluency and if there is any mis-spelled words , sentences or something which doesn't represent the content of the subject that could be technical error and please refer to the author for clarification. * Telephone Encounter - Silvina Araujo RN - 01/27/2024 12:38 PM EDT Images from the original note were not included. Received call from the pt's daughter Josselyn who is returning call to [facility]. Josselyn states that she did drop off [...] which is her norm. Will route to [facility] and the pt's [facility] care team. Silvina BURNS, RN [facility] Intake Triage Coordinator [phone] * Telephone Encounter - Beth Bailon RN [...] cloudy urine, increased agitation. 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 Future Visits Scheduled: Future Appointments-next 60 days Date/Time Provider Specialty Dept Phone 02/11/2024 11:20 AM (Arrive by 11:05 AM) Sheryl Pena PA-C Dermatology [phone] 03/01/2024 11:20 AM Romel Mcclelland, Ophthalmology [phone] 03/04/2024 5:30 PM Destiny Schultz, POPPY [facility] [phone] 03/30/2024 3:40 PM (Arrive by 3:25 PM) Verónica Benavides MD Family Medicine [phone] 04/21/2024 10:30 AM Chandler Pena MD Urology [phone] 11/24/2024 1:40 PM (Arrive by 1:25 PM) Sheryl Pena PA-C Dermatology [phone] Beth Bailon, RN documented in this encounter Plan of Treatment Upcoming Encounters Date Type Department Care Team (Late st Contact Info) Description 01/28/2024 9:30 AM EDT Scheduled Telephone [facility], [facility] [place] [address] Coordinator, [facility] [place] [address] 02/11/2024 11:20 AM EDT Office Visit Dermatology [address] [place] [address] Sheryl Pena PA-C [address] [place] [address] [place] [address] 03/01/2024 11:20 AM EDT Office Visit Ophthalmology, [facility] [place] [address] Romel Mcclelland, DO [address] [place], [place] [address] [address] 03/04/2024 5:30 PM EDT [facility] Visit [facility], [facility] [place] [address] Destiny Schultz RN [address] [place] [address] 03/30/2024 3:40 PM EDT Office Visit Family Medicine [address] [place] [phone] Verónica Benavides MD [address] [place] [address] [place] [address] 04/21/2024 10:30 AM EDT Telemedicine Urology, [facility] [place] [address] Chandler Pena MD 27 [facility] [address] [place] [address] 11/24/2024 1:40 PM EDT Office Visit Dermatology [address] [place] [address] Sheryl Pena PA-C [address] [place] [address] [place] [address] Health Maintenance Due Date Last Done Comments [...] Additional history exists CKD PHOS USE SMARTSET 54917 02/08/202401/23, 08/07/2021, 11/09/2019, Additional history exists TSH 03/25/2024 03/25/2023, 07/0 10/2022, 10/28/2022, Additional history exists Influenza Vaccine (FLU shot) (Season Ended) 2024 06/20/2022, 06/20/2022, 06/29/2021, Additional history exists CKD HGB USE SMARTSET 72854 05/26/202405/26, 05/26/2023, 04/07/2023, Additional history exists Pneumococcal [...] Documents on File Type Date Recorded 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
--- OUTSIDE RECORDS SUMMARY | 2024-04-24 11:17 | External Medical Summary | Summary of Care ---
Author Name Unknown Organization [facility] Address [address] [place] [address] Phone [phone] Care Team Providers Care Vp Ad Products And Planning Name Role Phone Verónica Benavides MD Primary Care Provide r Reason for Visit * Reason Comments eRx-Medication Refill Encounter Details Date Type Department Care Team (Late st Contact Info) Description 01/30/2024 Refill Pharmacy, [address] [place] [address] Verónica Benavides MD [address] [place] [address] [place] [address] Allergies Active Allergy Reactions Criticality Noted Date [...] mouth in the morning. 1 Active Nystatin 412714 UNIT/GM External Powder (Nystop)Indication s:Lydia rash of [...] XL)Indications:Non -ischemic cardiomyopathy (HCC),Coronary artery disease involving [place] coronary artery of [place] heart without angina pectoris,HTN, goal below 140/90 Take 1 Tablet by mouth every evening. 90 Tablet 11 3 Active Spironolactone 25 MG Oral Tablet (Aldactone)Indicat ions:Non-ischemic cardiomyopathy (HCC) Take 0.5 Tablets by mouth in the morning. 45 Tablet 3 3 Active metOLazone 2.5 MG Oral Tablet (Zaroxolyn) Take one tablet only when directed by clinician. 5 Tablet 3 Active Benzonatate 100 MG Oral Capsule Take 1 Capsule by mouth 3 times a day as needed for Cough. 30 Capsule 1 3 Active OneTouch Verio In Vitro Strip (Glucose Blood)Indications: Type 2 diabetes mellitus with stage 3 chronic kidney disease, without long-term current use of insulin ([facility]),Type 2 diabetes mellitus with hemoglobin A1c goal of less than 8.0% ([facility]) TEST UP TO FOUR TIMES [...] Tablet 3 3 Active OneTouch Delica Plus [id number] ns:Type 2 diabetes mellitus with hemoglobin A1c goal of less than 8.0% ([facility]) Test up to two times daily or as directed by [facility] pharmacist 200 Each 3 3 [...] at bedtime 3.5 g 3 4 Active Cephalexin 500 MG Oral Capsule Take 1 Capsule by mouth in the morning and 1 Capsule at noon and 1 Capsule before bedtime. Do all this for 10 days. 30 Capsule 4 02/07/20 24 Active Trulicity 0.75 MG/0.5ML Subcutaneous Solution Pen-injector (Dulaglutide) Inject 0.75 mg under the skin once a week. 2 mL 3 4 Active Trulicity 0.75 MG/0.5ML Subcutaneous Solution Pen-injector (Dulaglutide) Inject 0.75 mg under the skin once a week. 2 mL 3 4 01/31/20 24 Discontinued documented as of this encounter [...] Continue synthroid Coronary artery disease invo lving [place] coronary artery of [place] heart without angina pectoris 07/03/2012 Overview: 60% [...] mRNA, LNP-s, No Pre serve, 2-Dose Series (Center[employer]) 08/29/2021,10/23/2020,10/02/2020 COVID-19, MRNA-LNP, 23-24, P F, 30 MCG/0.3 mL, 12 YRS AND ABOVE, IM (Drinks[employer]-you-ComirTamecco) 08/04/2023 Covid-19, Mrna, Lnp-s, Pf, B ivalent, 30 Mcg, IM, 12 yrs and above (Center'd) 08/02/2022 Pneumococcal Conjugate Vacc, 13 Valent (Prevnar) [...] Telephone Encounter - Devon Dhillon DO - 01/31/2024 10:46 PM EDTSigned Prescriptions: Disp Refills Trulicity 0.75 MG/0.5ML Subcutaneous Solut*2 mL 3 Sig: Inject 0.75 mg under the skin once a week. Authorizing Provider: DEVON DHILLON * Telephone Encounter - Kathe Ahmadi [facility] - 01/30/2024 8:37 AM EDT Pending Prescriptions: Disp Refills Trulicity 0.75 MG/0.5ML Subcutaneous Solut*2 mL 3 Sig: Inject 0.75 mg under the skin once a week. documented in this encounter Plan of Treatment Upcoming Encounters Date Type Department Care Team (Late st Contact Info) Description 02/11/2024 11:20 AM EDT Office Visit Dermatology [address] [place] [address] Sheryl Pena PA-C [address] [place] [address] [place] [address] 03/01/2024 11:20 AM EDT Office Visit Ophthalmology, [facility] 132 [facility] [place] [address] Romel Mcclelland, [address] [place] [address] 03/04/2024 5:30 PM EDT Home Visit [facility] 132 [facility] [place] [address] Destiny Schultz, RN 132 [facility] [place] [address] 03/30/2024 3:40 PM EDT Office Visit Family Medicine [address] [place] [phone] Verónica Benavides MD [address] [place] [address] [place] [address] 04/21/2024 10:30 AM EDT Telemedicine Urology, [facility] 132 [facility] [place] [address] Chandler Pena MD [address] [address] [place] [id number] 11/24/2024 1:40 PM EDT Office Visit Dermatology [address] [place] [address] Sheryl Pena PA-C [address] [place] [address] [place] [address] Health Maintenance Due Date Last Done Comments [...] Additional history exists CKD PHOS USE SMARTSET 75230 02/08/202401/23, 08/07/2021, 11/09/2019, Additional history exists TSH 03/25/2024 03/25/2023, 0710/2022, 10/28/2022, Additional history exists Influenza Vaccine (FLU shot) (Season Ended) 2024 06/20/2022, 06/20/2022, 06/29/2021, Additional history exists CKD HGB USE SMARTSET 99220 05/26/202405/26, 05/26/2023, 04/07/2023, Additional history exists Pneumococcal [...] Documents on File Type Date Recorded 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
--- OUTSIDE RECORDS SUMMARY | 2024-04-24 11:18 | External Medical Summary | Summary of Care ---
Author Name Unknown Organization [facility] Address [address] [place] [address] Phone [phone] Care Team Providers Care Entry Level Software Engineer Name Role Phone Verónica Benavides MD Primary Care Provide r Reason for Visit * Reason Onset Date Comments [facility]: Maintenance 01/27/2024 Encounter Details Date Type Department Care Team (Late st Contact Info) Description 01/27/2024 9:30 AM EDT Scheduled Telephone [facility], [facility] 132 [facility] [place] [address] Coordinator, [facility] 132 [facility] [place] [address] Allergies Active Allergy Reactions Criticality Noted Date [...] mouth in the morning. 08/08/2021 Active Nystatin 613978 UNIT/GM External Powder (Nystop)Indications: Lydia rash of [...] XL)Indications:Non-i schemic cardiomyopathy (HCC),Coronary artery disease involving [place] coronary artery of [place] heart without angina pectoris,HTN, goal below 140/90 [...] Tablet 3 07/08/2023 Active OneTouch Delica Plus [id number] :Type 2 diabetes mellitus with hemoglobin A1c goal of less than 8.0% ([facility]) Test up to two times daily or as directed by [facility] pharmacist 200 Each 3 07/11/2023 [...] Continue synthroid Coronary artery disease invo lving [place] coronary artery of [place] heart without angina pectoris 07/03/2012 Overview: 60% [...] mRNA, LNP-s, No Pre serve, 2-Dose Series ([employer]) 08/29/2021,10/23/2020,10/02/2020 COVID-19, MRNA-LNP, 23-24, P F, 30 MCG/0.3 mL, 12 YRS AND ABOVE, IM ([facility]) 08/04/2023 Covid-19, Mrna, Lnp-s, Pf, B ivalent, 30 Mcg, IM, 12 yrs and above ([employer]) 08/02/2022 Influenza, Whole Virus 08/07/2000 Pneumococcal Conjugate [...] daughter Josselyn who is returning call to [facility]. Josselyn states that she did drop off [...] which is her norm. Will route to [facility] and the pt's [facility] care team. Silvina BURNS, RN [facility] Intake Triage Coordinator [phone] * Telephone Encounter - Beth Bailon RN - 01/27/2024 10:45 AM EDT [facility] Telephonic Nurse Follow-Up Call [facility] Subprogram: Primary Care at Home [...] Negative Ketone, Urine Negative Negative mg/dL Specific [place], Urine 1.010 1.003 - 1.030 Blood, Urine [...] Follow up call scheduled for tomorrow with [facility] Future Visits Scheduled: Future Appointments-next 60 days Date/Time Provider Specialty Dept Phone 02/11/2024 11:20 AM (Arrive by 11:05 AM) Sheryl Pena PA-C Dermatology [phone] 03/01/2024 11:20 AM Romle Mcclelland, Ophthalmology [phone] 03/04/2024 5:30 PM Destiny Schultz RN [facility] [phone] 03/30/2024 3:40 PM (Arrive by 3:25 PM) Verónica Benavides MD Family Medicine [phone] 04/21/2024 10:30 AM Chandler Pena MD Urology [phone] 11/24/2024 1:40 PM (Arrive by 1:25 PM) Sheryl Pena PA-C Dermatology [phone] Beth Bailon RN documented in this encounter Plan of Treatment Upcoming Encounters Date Type Department Care Team (Late st Contact Info) Description 02/11/2024 11:20 AM EDT Office Visit Dermatology [address] [place] [address] Sheryl Pena PA-C [address] [place] [address] [place] [address] 03/01/2024 11:20 AM EDT Office Visit Ophthalmology, [facility] 132 [facility] [place] [address] Romel Mcclelland T, DO [address] [place] [address] 03/04/2024 5:30 PM EDT Home Visit [facility], [facility] 132 [facility] [place] [address] Destiny Schultz RN 132 [facility] [place] [address] 03/30/2024 3:40 PM EDT Office Visit Family Medicine [address] [place] [phone] Verónica Benavides MD [address] [place] [address] [place] [address] 04/21/2024 10:30 AM EDT Telemedicine Urology, [facility] 132 [facility] [place] [address] Chandler Pena MD [address] [address] [place] [address] 11/24/2024 1:40 PM EDT Office Visit Dermatology [address] [place] [address] Sheryl Pena PA-C [address] [place] [address] [place] [address] Health Maintenance Due Date Last Done Comments [...] Additional history exists CKD PHOS USE SMARTSET 25822 02/08/202401/23, 08/07/2021, 11/09/2019, Additional history exists TSH 03/25/2024 03/25/2023, 07/0 10/2022, 10/28/2022, Additional history exists Influenza Vaccine (FLU shot) (Season Ended) 2024 06/20/2022, 06/20/2022, 06/29/2021, Additional history exists CKD HGB USE SMARTSET 11911 05/26/202405/26, 05/26/2023, 04/07/2023, Additional history exists Pneumococcal [...] Documents on File Type Date Recorded 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
--- OUTSIDE RECORDS SUMMARY | 2024-04-24 11:18 | External Medical Summary | Summary of Care ---
Author Name Unknown Organization [facility] Address [address] [place] [address] Phone [phone] Care Team Providers Care Rat Exterminator Name Role Phone Verónica Benavides MD Primary Care Provide r Reason for Visit * Reason Comments Post-Op Encounter Details Date Type Department Care Team ([facility] st Contact Info) Description 01/21/2024 9:10 AM EDT Office Visit Ophthalmology, 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 Last Assessment & Plan: [facility] Triage Call: Reviewed last C&S [...] as of this encounter (statuses as of 01/21/2024) Resolved Problems Problem Noted Date Diagnosed Date [...] as of this encounter (statuses as of 01/21/2024) Immunizations Name Administration Dates Next Due COVID-19 mRNA, LNP-s, No Pre serve, 2-Dose Series ([employer]) 08/29/2021,10/23/2020,10/02/2020 COVID-19, MRNA-LNP, 23-24, P F, 30 MCG/0.3 mL, 12 YRS AND ABOVE, IM ([employer]) 08/04/2023 Covid-19, Mrna, Lnp-s, Pf, B ivalent, 30 Mcg, IM, 12 yrs and above ([employer]) 08/02/2022 Pneumococcal Conjugate Vacc, 13 Valent (Prevnar) [...] as of this encounter Progress Notes * Romel Mcclelland DO - 01/21/2024 9:15 AM EDT Regla Castano seen for 2 weeks post RLL LTS for entropion. Tolerated well using ointment Base Eye Exam Extraocular Movement Right Left Full Full Neuro/Psych Oriented x3: Yes LLL: incisions intact good apposition no entropion C/S: Normal Cornea: Clear Assessment: 2 weeks S/P RLL LTS. Looks great. Plan: Erythromycin ointment QHS Return visit 6 weeks PRN Pt. advised to RTC sooner if there are any problems. Romel Mcclelland DO documented in this encounter Nursing Notes * Purvi Kerr LPN - 01/21/2024 9:16 AM EDT Regla Castano is a 88 year old female who presents for PO. Patient denies issues this visit Last Visit: 01/07/2024 (in office), Visit date not found (telemedicine) She currently states no change in vision. Are you diabetic? Yes. Do you check your sugar daily? YES. Fasting BS this mornin mg/dl. LastHemoglobin A1C: Lab Results Component Value Date/Time HGBA1C 9.6 (H) 02/11/2023 01:40 PM HGBA1C 7.6 (H) 11/01/2022 06:18 AM HGBA1C 6.9 (H) 01/11/2022 08:25 AM HGBA1C 6.4 (H) 06/06/2020 11:14 AM HGBA1C 6.5 (H) 11/09/2019 03:52 PM HGBA1C 6.2 (H) 07/09/2019 03:08 PM Current Ophthalmic Medications: Erythromycin Ointment apply to right eye QPM [facility], IOP, current eyeglass Rx, and pupil check and dilation if needed can be found in ophth exam. documented in this encounter Plan of Treatment Upcoming Encounters Date Type Department Care Team (Late st Contact Info) Description 02/11/2024 11:20 AM EDT Office Visit Dermatology [address] [place] [address] Sheryl Pena PA-C [address] [place] [address] [place] [address] 03/01/2024 11:20 AM EDT Office Visit Ophthalmology, [facility] 132 [facility] [place] [address] Romel Mcclelland, DO 16 [place] [address] 03/04/2024 5:30 PM EDT Home Visit [facility] [place], [facility] [address] [place] [address] Destiny Schultz, POPPY 132 [facility] [place] [address] 03/30/2024 3:40 PM EDT Office Visit Family Medicine [address] [place] [phone] Verónica Benavides MD [address] [place] [address] [place] [address] 04/21/2024 10:30 AM EDT Telemedicine Urology, [facility] 132 [facility] [place] [address] Chandler Pena MD [address] [place] [address] [place] [address] 11/24/2024 1:40 PM EDT Office Visit Dermatology [address] [place] [address] Sheryl Pena PA-C [address] [place] [address] [place] [address] Health Maintenance Due Date Last Done Comments [...] Additional history exists CKD PHOS USE SMARTSET 37718 02/08/2024 06/01/2023, 08/07/2021, 11/09/2019, Additional history exists TSH 03/25/2024 03/25/2023, 07/0 10/2022, 10/28/2022, Additional history exists Influenza Vaccine (FLU shot) (Season Ended) 2024 06/20/2022, 06/20/2022, 06/29/2021, Additional history exists CKD HGB USE SMARTSET 65225 05/26/202405/26, 05/26/2023, 04/07/2023, Additional history exists Pneumococcal [...] as of this encounter Visit Diagnoses Diagnosis 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]- Primary Spastic entropion documented in this encounter Additional Health Concerns 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/2023 documented as of this encounter Advance Directives Documents on File Type Date Recorded 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
--- OUTSIDE RECORDS SUMMARY | 2024-04-24 11:18 | External Medical Summary | Summary of Care ---
Author Name Unknown Organization [facility] Address [address] [place] [address] Phone [phone] Care Team Providers Care Marine Operations Coordinator Name Role Phone Verónica Benavides MD Primary Care Provide r Reason for Visit * Reason Onset Date Comments Appointment 01/12/2024 Encounter Details Date Type Department Care Team (Late st Contact Info) Description 01/12/2024 Telephone Dermatology [facility] [address] [place] [address] Services, Scheduling [address] [place] [address] Appointment Allergies Active Allergy Reactions Criticality Noted Date Comments Adhesive Tape Medium 01/30/2022 Ibuprofen Hives 01/13/2012 Aspirin Hives,Rash 09/15/2000 Sulfamethoxazole-Trimeth oprim Nausea/vomiting,Othe r (Please comment) 10/27/2020 Dizziness Ciprofloxacin Hcl 06/16/2019 Hoarse, dizzy,disoriented Morphine 09/21/2021 Blacked out Penicillins Hives,Rash 09/15/2000 Prednisone 12/30/2017 Weakness/memory changes/blurred vision documented as of this encounter (statuses as of 01/12/2024) Medications Medication Sig Dispensed Refills Start Date [...] mouth in the morning. 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 Last Assessment & Plan: [facility] Triage Call: Reviewed last C&S [...] as of this encounter (statuses as of 01/12/2024) Resolved Problems Problem Noted Date Diagnosed Date [...] as of this encounter (statuses as of 01/12/2024) Immunizations Name Administration Dates Next Due COVID-19 mRNA, LNP-s, No Pre serve, 2-Dose Series ([employer]) 08/29/2021,10/23/2020,10/02/2020 COVID-19, MRNA-LNP, 23-24, P F, 30 MCG/0.3 mL, 12 YRS AND ABOVE, IM ([employer] [email or web address]) 08/04/2023 Covid-19, Mrna, Lnp-s, Pf, B ivalent, [...] encounter Miscellaneous Notes * Telephone Encounter - Purvi Nguyen OSA - 01/12/2024 1:22 PM EDT Called patient's daughter Josselyn and scheduled appt for February 10 in the [place] office. * Telephone Encounter - Kenna De OSA - 01/12/2024 12:26 PM EDT [place], 3 day urgent referral placed for skin lesion. If you can please with scheduling. Thank You documented in this encounter Plan of Treatment Upcoming Encounters Date Type Department Care Team (Late st Contact Info) Description 01/21/2024 9:10 AM EDT Office Visit Ophthalmology, [facility] [address] [place] [address] Romel Mcclelland, DO [address] [place], [place] [address] [address] 02/11/2024 11:20 AM EDT Office Visit Dermatology [address] [place] [address] Sheryl Pena PA-C [address] [place] [address] [place] [address] 03/01/2024 11:20 AM EDT Office Visit Ophthalmology, [facility] 132 [facility] [place] [address] Romel Mcclelland T, DO [address] [place] [address] 03/04/2024 5:30 PM EDT [facility], [facility] 132 [facility] [place] [address] Destiny Schultz RN [address] [facility] [employer] [place] [address] 03/30/2024 3:40 PM EDT Office Visit Family Medicine [address] [place] [phone] Verónica Benavides MD [address] [place] [address] [place] [address] 04/21/2024 10:30 AM EDT Telemedicine Urology, [facility] 132 [facility] [place] [address] Chandler Pena MD [address] [address] [place] [address] 11/24/2024 1:40 PM EDT Office Visit Dermatology [address] [place] [address] Sheryl Pena PA-C [address] [place] [address] [place] [address] Health Maintenance Due Date Last Done Comments [...] Additional history exists CKD PHOS USE SMARTSET 87523 02/08/202401/23, 08/07/2021, 11/09/2019, Additional history exists TSH 03/25/2024 03/25/2023, 07/0 10/2022, 10/28/2022, Additional history exists Influenza Vaccine (FLU shot) (Season Ended) 2024 06/20/2022, 06/20/2022, 06/29/2021, Additional history exists CKD HGB USE SMARTSET 47664 05/26/202405/26, 05/26/2023, 04/07/2023, Additional history exists Pneumococcal [...] on File Type Date Recorded 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
--- OUTSIDE RECORDS SUMMARY | 2024-04-24 11:18 | External Medical Summary | Summary of Care ---
Author Name Unknown Organization [facility] Address [address] [place] [address] Phone [phone] Care Team Providers Care Bulldozer Engineer Name Role Phone Verónica Benavides MD Primary Care Provide r Reason for Visit * Reason Comments Outpatient Testing Encounter Details Date Type Department Care Team (Late st Contact Info) Description 01/26/2024 9:30 AM EDT Laboratory Laboratory [address] [place] [id number] , Specimen Drop Off [address] [place] [address] UTI symptoms Allergies Active Allergy Reactions Criticality Noted Date Comments Adhesive Tape Medium 01/30/2022 Ibuprofen Hives 01/13/2012 Aspirin Hives,Rash 09/15/2000 Sulfamethoxazole-Trimeth oprim Nausea/vomiting,Othe r (Please comment) 10/27/2020 Dizziness Ciprofloxacin Hcl 06/16/2019 Hoarse, dizzy,disoriented Morphine 09/21/2021 Blacked out Penicillins Hives,Rash 09/15/2000 Prednisone 12/30/2017 Weakness/memory changes/blurred vision documented as of this encounter (statuses as of 01/26/2024) Medications Medication Sig Dispensed Refills Start Date [...] mouth in the morning. 08/08/2021 Active Nystatin 332729 UNIT/GM External Powder (Nystop)Indications: Lydia rash of [...] XL)Indications:Non-i schemic cardiomyopathy (HCC),Coronary artery disease involving augustine coronary artery of augustine heart without angina pectoris,HTN, goal below 140/90 [...] Tablet 3 07/08/2023 Active OneTouch Delica Plus [id number] :Type 2 diabetes mellitus with hemoglobin A1c goal of less than 8.0% ([facility]) Test up to two times daily or as directed by [facility] pharmacist 200 Each 3 07/11/2023 Active [...] as of this encounter (statuses as of 01/26/2024) Active Problems Problem Noted Date Diagnosed Date [...] Continue synthroid Coronary artery disease invo lving augustine coronary artery of augustine heart without angina pectoris 07/03/2012 Overview: 60% [...] as of this encounter (statuses as of 01/26/2024) Resolved Problems Problem Noted Date Diagnosed Date [...] as of this encounter (statuses as of 01/26/2024) Immunizations Name Administration Dates Next Due COVID-19 mRNA, LNP-s, No Pre serve, 2-Dose Series ([employer]) 08/29/2021,10/23/2020,10/02/2020 COVID-19, MRNA-LNP, 23-24, P F, 30 MCG/0.3 mL, 12 YRS AND ABOVE, IM ([employer]) 08/04/2023 Covid-19, Mrna, Lnp-s, Pf, B ivalent, 30 Mcg, IM, 12 yrs and above ([employer]) 08/02/2022 Pneumococcal Conjugate Vacc, 13 Valent (Prevnar) [...] AM EDT Scheduled Telephone [facility], [facility] [address] [place] [address] Coordinator, [facility] [address] [place] [address] 02/11/2024 11:20 AM EDT Office Visit Dermatology [address] [place] [address] Sheryl Pena PA-C [address] [place] [address] [place] [address] 03/01/2024 11:20 AM EDT Office Visit Ophthalmology, [facility] [address] [place] [address] Romel Mcclelland T, DO 16 [facility] [place] [address] 03/04/2024 5:30 PM EDT Home Visit [facility], [facility] 132 [facility] [place] [address] Destiny Schultz RN 132 [facility] [place] [address] 03/30/2024 3:40 PM EDT Office Visit Family Medicine [address] [place] [phone] Verónica Benavides MD [address] [place] [address] [place] [address] 04/21/2024 10:30 AM EDT Telemedicine Urology, [facility] [place] [address] Chandler Pena MD [address] [address] [place] [address] 11/24/2024 1:40 PM EDT Office Visit Dermatology [address] [place] [address] Sheryl Pena PA-C [address] [place] [address] [place] [address] Pending Results Name Type Priority Associated Diagnoses Date /Time URINALYSIS, REFLEX TO CULTURE (NOT FOR NEUTROPENIC PATIENTS) Lab Routine UTI symptoms 01/26/2024 9:29 AM EDT URINALYSIS, REFLEX TO CULTURE (CUP ONLY) Lab Routine UTI symptoms 01/26/2024 9:29 AM EDT URINALYSIS, REFLEX TO CULTURE Lab Routine UTI symptoms 01/26/2024 9:29 AM EDT Health Maintenance Due Date Last [...] Additional history exists CKD PHOS USE SMARTSET 21325 02/08/202401/23, 08/07/2021, 11/09/2019, Additional history exists TSH 03/25/2024 03/25/2023, 07/0 10/2022, 10/28/2022, Additional history exists Influenza Vaccine (FLU shot) (Season Ended) 2024 06/20/2022, 06/20/2022, 06/29/2021, Additional history exists CKD HGB USE SMARTSET 57093 05/26/202405/26, 05/26/2023, 04/07/2023, Additional history exists Pneumococcal [...] of this encounter Visit Diagnoses Diagnosis UTI symptoms Other symptoms involving urinary system documented in this encounter Additional Health Concerns 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/2023 documented as of this encounter Advance Directives Documents on File Type Date Recorded 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
--- OUTSIDE RECORDS SUMMARY | 2024-04-24 11:18 | External Medical Summary | Summary of Care ---
Author Name Unknown Organization [facility] Address [address] [place] [address] Phone [phone] Care Team Providers Care Insurance Account Executive Name Role Phone Verónica Benavides MD Primary Care Provide r Reason for Visit * Reason Onset Date Comments [facility]: Maintenance 01/27/2024 Encounter Details Date Type Department Care Team (Late st Contact Info) Description 01/27/2024 9:30 AM EDT Scheduled Telephone [facility], [facility] 132 [facility] [place] [address] Coordinator, [facility] 132 [facility] [place] [address] Allergies Active Allergy Reactions Criticality Noted Date [...] mouth in the morning. 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. Josselyn states that she did drop [...] which is her norm. Will route to [facility] and the pt's [facility] care team. Silvina BURNS, RN [facility] Intake Triage Coordinator [phone] * Telephone Encounter - Beth Bailon RN - 01/27/2024 10:45 AM EDT [facility] Telephonic Nurse Follow-Up Call [facility] Subprogram: Primary Care at Home [...] Negative Ketone, Urine Negative Negative mg/dL Specific [place], Urine 1.010 1.003 - 1.030 Blood, Urine [...] up call scheduled for tomorrow with [facility] Future Visits Scheduled: Future Appointments-next 60 days Date/Time Provider Specialty Dept Phone 02/11/2024 11:20 AM (Arrive by 11:05 AM) Sheryl Pena PA-C Dermatology [phone] 03/01/2024 11:20 AM Romel Mcclelland, Ophthalmology [phone] 03/04/2024 5:30 PM Destiny Schultz RN [facility] [phone] 03/30/2024 3:40 PM (Arrive by 3:25 PM) Verónica Benavides MD Family Medicine [phone] 04/21/2024 10:30 AM Chandler Pena MD Urology [phone] 11/24/2024 1:40 PM (Arrive by 1:25 PM) Sheryl Pena PA-C Dermatology [phone] Beth Bailon RN documented in this encounter Plan of Treatment Upcoming Encounters Date Type Department Care Team (Late st Contact Info) Description 02/11/2024 11:20 AM EDT Office Visit Dermatology [address] [place] [address] Sheryl Pena PA-C [address] [place] [address] [place] [address] 03/01/2024 11:20 AM EDT Office Visit Ophthalmology, [facility] 132 [facility] [place] [address] Romel Mcclelland T, DO 16 [place] [address] 03/04/2024 5:30 PM EDT [facility] Visit [facility], [facility] 132 [facility] [place] [address] Destiny Schultz RN 132 [facility] [place] [address] 03/30/2024 3:40 PM EDT Office Visit Family Medicine [address] [place] [phone] Verónica Benavides MD [address] [place] [address] [place] [address] 04/21/2024 10:30 AM EDT Telemedicine Urology, [facility] 132 [facility] [place] [address] Chandler Pena MD [address] [address] [place] [address] 11/24/2024 1:40 PM EDT Office Visit Dermatology [address] [place] [address] Sheryl Pena PA-C [address] [place] [address] [place] [address] Health Maintenance Due Date Last Done Comments [...] Additional history exists CKD PHOS USE SMARTSET 12496 02/08/202401/23, 08/07/2021, 11/09/2019, Additional history exists TSH 03/25/2024 03/25/2023, 07/0 10/2022, 10/28/2022, Additional history exists Influenza Vaccine (FLU shot) (Season Ended) 2024 06/20/2022, 06/20/2022, 06/29/2021, Additional history exists CKD HGB USE SMARTSET 52408 05/26/202405/26, 05/26/2023, 04/07/2023, Additional history exists Pneumococcal [...] Documents on File Type Date Recorded Patient Assisted Living Executive Director Expl anation Advance Directives and Living Will 08/10/2021 ADVANCE DIRECTIVE / LIVING WILL LIVING WILL Healthcare Agents on File Name Relationship Healthcare Agent [facility] Communication Josselyn Judd [facility] Power of Attor nathalie Care Teams Insurance Account Executive Relationship Specialty Start Date End Date Verónica Benavides MD [address] [place] [address] [place] [address] PCP - General Family Medicine 09/16/14 documented as of this encounter
--- OUTSIDE RECORDS SUMMARY | 2024-04-24 11:18 | External Medical Summary | Summary of Care ---
Author Name Unknown Organization [facility] Address [address] [place] [address] Phone [phone] Care Team Providers Care Landscape Maintenance Internship Name Role Phone Verónica Benavides MD Primary Care Provide r Reason for Visit * Reason Onset Date Comments [facility]: Maintenance 01/27/2024 Encounter Details Date Type Department Care Team (Late st Contact Info) Description 01/27/2024 9:30 AM EDT Scheduled Telephone [facility], [facility] 132 [facility] [place] [address] Coordinator, [facility] 132 [facility] [place] [address] Allergies Active Allergy Reactions Criticality Noted Date [...] mouth in the morning. 08/08/2021 Active Nystatin 602801 UNIT/GM External Powder (Nystop)Indications: Lydia rash of [...] Tablet 3 07/08/2023 Active OneTouch Delica Plus [id number] :Type 2 diabetes mellitus with hemoglobin A1c [...] no improvement on day 3, contact [facility] for possible home visit 1 [...] mRNA, LNP-s, No Pre serve, 2-Dose Series ([employer]) 08/29/2021,10/23/2020,10/02/2020 COVID-19, MRNA-LNP, 23-24, P F, 30 MCG/0.3 mL, 12 YRS AND ABOVE, IM ([facility]) 08/04/2023 Covid-19, Mrna, Lnp-s, Pf, B ivalent, 30 Mcg, IM, 12 yrs and above ([employer]) 08/02/2022 Influenza, Whole Virus 08/07/2000 Pneumococcal Conjugate [...] daughter Josselyn who is returning call to [facility]. Josselyn states that she did drop off [...] which is her norm. Will route to [facility] and the pt's [facility] care team. Silvina BURNS, RN [facility] Intake Triage Coordinator [phone] * Telephone Encounter - Beth Bailon RN - 01/27/2024 10:45 AM EDT [facility] Telephonic Nurse Follow-Up Call [facility] Subprogram: Primary Care at Home [...] Negative Ketone, Urine Negative Negative mg/dL Specific [place], Urine 1.010 1.003 - 1.030 Blood, Urine [...] Follow up call scheduled for tomorrow with [facility] Equity Analyst Future Visits Scheduled: Future Appointments-next 60 days Date/Time Provider Specialty Dept Phone 02/11/2024 11:20 AM (Arrive by 11:05 AM) Sheryl Pena PA-C Dermatology [phone] 03/01/2024 11:20 AM Romel Mcclelland, Ophthalmology [phone] 03/04/2024 5:30 PM Destiny Schultz RN [facility] [phone] 03/30/2024 3:40 PM (Arrive by 3:25 PM) Verónica Benavides MD Family Medicine [phone] 04/21/2024 10:30 AM Chandler Pena MD Urology [phone] 11/24/2024 1:40 PM (Arrive by 1:25 PM) Sheryl Pena PA-C Dermatology [phone] Beth Bailon RN documented in this encounter Plan of Treatment Upcoming Encounters Date Type Department Care Team (Late st Contact Info) Description 02/11/2024 11:20 AM EDT Office Visit Dermatology [address] [place] [address] Sheryl Pena PA-C [address] [place] [address] [place] [address] 03/01/2024 11:20 AM EDT Office Visit Ophthalmology, [facility] 132 [facility] [place] [address] Romel Mcclelland T, DO 16 [place] [address] 03/04/2024 5:30 PM EDT Home Visit [place] [facility], [facility] 132 [facility] [place] [address] Destiny Schultz RN 132 [facility] [place] [address] 03/30/2024 3:40 PM EDT Office Visit Family Medicine [address] [place] [phone] Verónica Benavides MD [address] [place] [address] [place] [address] 04/21/2024 10:30 AM EDT Telemedicine Urology, [facility] 132 [facility] [place] [address] Chandler Pena MD [address] [address] [place] [address] 11/24/2024 1:40 PM EDT Office Visit Dermatology [address] [place] [address] Sheryl Pena PA-C [address] [place] [address] [place] [address] Health Maintenance Due Date Last Done Comments [...] Additional history exists CKD PHOS USE SMARTSET 48120 02/08/202401/23, 08/07/2021, 11/09/2019, Additional history exists TSH 03/25/2024 03/25/2023, 07/0 10/2022, 10/28/2022, Additional history exists Influenza Vaccine (FLU shot) (Season Ended) 2024 06/20/2022, 06/20/2022, 06/29/2021, Additional history exists CKD HGB USE SMARTSET 92332 05/26/202405/26, 05/26/2023, 04/07/2023, Additional history exists Pneumococcal [...] Documents on File Type Date Recorded 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
--- OUTSIDE RECORDS SUMMARY | 2024-04-24 11:18 | External Medical Summary | Summary of Care ---
Author Name Unknown Organization [facility] Address [address] [place] [address] Phone [phone] Care Team Providers Care Envelope Stuffer Name Role Phone Verónica Benavides MD Primary Care Provide r Reason for Visit * Reason Onset Date Comments [facility]: Maintenance 01/27/2024 Encounter Details Date Type Department Care Team (Late st Contact Info) Description 01/27/2024 9:30 AM EDT Scheduled Telephone [facility], [facility] 132 [facility] [place] [address] Coordinator, [facility] 132 [facility] [place] [address] Allergies Active Allergy Reactions Criticality Noted Date [...] mouth in the morning. 08/08/2021 Active Nystatin 148133 UNIT/GM External Powder (Nystop)Indications: Lydia rash of [...] XL)Indications:Non-i schemic cardiomyopathy (HCC),Coronary artery disease involving [place] coronary artery of [place] heart without angina pectoris,HTN, goal below 140/90 [...] A1c goal of less than 8.0% ([facility]) TEST UP TO FOUR TIMES [...] Tablet 3 07/08/2023 Active OneTouch Delica Plus [id number] :Type 2 diabetes mellitus with hemoglobin A1c goal of less than 8.0% ([facility]) Test up to two times [...] If no improvement on day 3, contact [facility] for possible home visit 1 Each [...] carrier 06/29/2021 Last Assessment & Plan: [facility] Triage Call: Reviewed last C&S - [...] Continue synthroid Coronary artery disease invo lving [place] coronary artery of [place] heart without angina pectoris 07/03/2012 Overview: 60% [...] mRNA, LNP-s, No Pre serve, 2-Dose Series ([employer]) 08/29/2021,10/23/2020,10/02/2020 COVID-19, MRNA-LNP, 23-24, P F, 30 MCG/0.3 mL, 12 YRS AND ABOVE, IM ([facility]) 08/04/2023 Covid-19, Mrna, Lnp-s, Pf, B ivalent, 30 Mcg, IM, 12 yrs and above ([employer]) 08/02/2022 Pneumococcal Conjugate Vacc, 13 Valent (Prevnar) [...] Bailon RN - 01/27/2024 10:45 AM EDT [facility] Subprogram: Primary Care at Home Follow [...] Negative Ketone, Urine Negative Negative mg/dL Specific [place], Urine 1.010 1.003 - 1.030 Blood, Urine [...] for tomorrow with [facility] [employer] Teacher Future Visits Scheduled: Future Appointments-next 60 days Date/Time Provider Specialty Dept Phone 02/11/2024 11:20 AM (Arrive by 11:05 AM) Sheryl Pena PA-C Dermatology [phone] 03/01/2024 11:20 AM Romel Mcclelland, DO Ophthalmology [phone] 03/04/2024 5:30 PM Destiny Schultz RN [facility] [phone] 03/30/2024 3:40 PM (Arrive by 3:25 PM) Verónica Benavides MD Family Medicine [phone] 04/21/2024 10:30 AM Chandler Pena MD Urology [phone] 11/24/2024 1:40 PM (Arrive by 1:25 PM) Sheryl Pena PA-C Dermatology [phone] Beth Bailon, RN documented in this encounter Plan of Treatment Upcoming Encounters Date Type Department Care Team (Late st Contact Info) Description 02/11/2024 11:20 AM EDT Office Visit Dermatology [address] [place] [address] Sheryl Pena PA-C [address] [place] [address] [place] [address] 03/01/2024 11:20 AM EDT Office Visit Ophthalmology, [facility] 132 [facility] [place] [address] Romel Mcclelland, DO [address] [place] [address] 03/04/2024 5:30 PM EDT Home Visit [facility], [facility] 132 [facility] [place] [address] Destiny Schultz RN 132 [facility] [place] [address] 03/30/2024 3:40 PM EDT Office Visit Family Medicine [address] [place] [phone] Verónica Benavides MD [address] [place] [address] [place] [address] 04/21/2024 10:30 AM EDT Telemedicine Urology, [facility] 132 [facility] [place] [address] Chandler Pena MD [address] [address] [place] [address] 11/24/2024 1:40 PM EDT Office Visit Dermatology [address] [place] [address] Sheryl Pena PA-C [address] [place] [address] [place] [address] Health Maintenance Due Date Last Done Comments [...] Additional history exists CKD PHOS USE SMARTSET 01628 02/08/202401/23, 08/07/2021, 11/09/2019, Additional history exists TSH 03/25/2024 03/25/2023, 0710/2022, 10/28/2022, Additional history exists Influenza Vaccine (FLU shot) (Season Ended) 2024 06/20/2022, 06/20/2022, 06/29/2021, Additional history exists CKD HGB USE SMARTSET 15660 05/26/202405/26, 05/26/2023, 04/07/2023, Additional history exists Pneumococcal [...] Documents on File Type Date Recorded Patient Homeland Security Program Specialist Expl anation Advance Directives and Living Will 08/10/2021 ADVANCE DIRECTIVE / LIVING WILL LIVING WILL Healthcare Agents on File Name Relationship Healthcare Agent Relationshi p Communication Josselyn Judd Adult Child Health Care Power of Attor nathalie Care Teams Envelope Stuffer Relationship Specialty Start Date End Date Verónica Benavides MD [address] [place] [address] [place] [phone] PCP - General Family Medicine 09/16/14 documented as of this encounter
--- OUTSIDE RECORDS SUMMARY | 2024-04-24 11:18 | External Medical Summary ---
Author Name Unknown Address Unknown Organization K01[facility] [address] [facility] [address] Laboratory Report Ordering Provider Test Date Status LAURA REZA 01/26/2024 09:29:19 Final Observation Date Value Abnormality Reference (Units) Status Color of Urine by Auto 01/26/2024 09:29:19 Yellow Light Yellow, Yellow, Dark Yellow Final Clarity, Urine 01/26/2024 09:29:19 Slightly Cloudy Abnormal Clear Final Glucose [Mass/volume] in Urine by Automated test strip 01/26/2024 09:29:19 Negative Negative (mg/dL) Final Bilirubin.total [Presence] in Urine by Automated test strip 01/26/2024 09:29:19 Negative Negative Final Ketones [Mass/volume] in Urine by Automated test strip 01/26/2024 09:29:19 Negative Negative (mg/dL) Final Specific gravity, Urine 01/26/2024 09:29:19 1.010 1.003-1.030 Final Hemoglobin [Presence] in Urine by Automated test strip 01/26/2024 09:29:19 Moderate Abnormal Negative Final pH, Urine 01/26/2024 09:29:19 >=9.0 Above high normal 5.0-7.5 (Units) Final Protein [Mass/volume] in Urine by Automated test strip 01/26/2024 09:29:19 30 Abnormal Negative (mg/dL) Final Urobilinogen [Mass/volume] in Urine by Automated test strip 01/26/2024 09:29:19 0.2 0.2, 1.0 (mg/dL) Final Nitrite [Presence] in Urine by Automated test strip 01/26/2024 09:29:19 Negative Negative Final Leukocyte esterase [Presence] in Urine by Automated test strip 01/26/2024 09:29:19 Trace Abnormal Negative Final RBC, Urine 01/26/2024 09:29:19 0-2 0-2 (/HPF) Final WBC, Urine 01/26/2024 09:29:19 0-2 0-2 (/HPF) Final Bacteria [#/area] in Urine sediment by Microscopy high power field 01/26/2024 09:29:19 >200 Abnormal 0-25 (/HPF) Final CULTURE, URINE - [facility] 01/26/2024 09:29:19 Final Quantitative urine culture t o be performed Performing Location [facility] [address] [facility] [address]
--- OUTSIDE RECORDS SUMMARY | 2024-04-24 11:18 | External Medical Summary | Summary of Care ---
Author Name Unknown Organization [facility] Address [address] [place] [address] Phone [phone] Care Team Providers Care Printing Shop Supervisor Name Role Phone Verónica Benavides MD Primary Care Provide r Reason for Visit * Reason Onset Date Comments Advice 12/12/2023 Encounter Details Date Type Department Care Team (Late st Contact Info) Description 12/12/[address] [address] Services, Scheduling [address] [place] [address] Advice Allergies Active Allergy Reactions Criticality Noted Date Comments Adhesive Tape Medium 01/30/2022 Ibuprofen Hives 01/13/2012 Aspirin Hives,Rash 09/15/2000 Sulfamethoxazole-Trimeth oprim Nausea/vomiting,Othe r (Please comment) 10/27/2020 Dizziness Ciprofloxacin Hcl 06/16/2019 Hoarse, dizzy,disoriented Morphine 09/21/2021 Blacked out Penicillins Hives,Rash 09/15/2000 Prednisone 12/30/2017 Weakness/memory changes/blurred vision documented as of this encounter (statuses as of 01/15/2024) Medications Medication Sig Dispensed Refills Start Date [...] mouth in the morning. 08/08/2021 Active Nystatin 706493 UNIT/GM External Powder (Nystop)Indications: Lydia rash of [...] XL)Indications:Non-i schemic cardiomyopathy (HCC),Coronary artery disease involving [place] coronary artery of [place] heart without angina pectoris,HTN, goal below 140/90 [...] Tablet 3 07/08/2023 Active OneTouch Delica Plus [id number] :Type 2 diabetes mellitus with hemoglobin A1c goal of less than 8.0% ([facility]) Test up to two times daily or as directed by [facility] pharmacist 200 Each 3 07/11/2023 [...] If no improvement on day 3, contact [facility] for possible home visit 1 Each 11/28/2023 Active Meclizine HCl 25 MG Oral Tablet (Antivert)Indication s:Vertigo Take 1 tablet by mouth 3 times a day as needed for dizziness 30 Tablet 5 11/28/2023 Active Ondansetron HCl 4 MG Oral Tablet Take 1 Tablet by mouth every 6 hours as needed for Nausea. 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 Last Assessment & Plan: [facility] Triage Call: Reviewed last C&S - [...] Continue synthroid Coronary artery disease invo lving [place] coronary artery of com[place] heart without angina pectoris 07/03/2012 Overview: 60% [...] as of this encounter (statuses as of 01/15/2024) Resolved Problems Problem Noted Date Diagnosed Date [...] as of this encounter (statuses as of 01/15/2024) Immunizations Name Administration Dates Next Due COVID-19 mRNA, LNP-s, No Pre serve, 2-Dose Series ([employer]) 08/29/2021,10/23/2020,10/02/2020 COVID-19, MRNA-LNP, 23-24, P F, 30 MCG/0.3 mL, 12 YRS AND ABOVE, IM ([employer]) 08/04/2023 Covid-19, Mrna, Lnp-s, Pf, B ivalent, 30 Mcg, IM, 12 yrs and above ([employer]) 08/02/2022 Pneumococcal Conjugate Vacc, 13 Valent (Prevnar) [...] encounter Miscellaneous Notes * Telephone Encounter - Maria Eugenia Pena PA-C - 12/12/2023 11:31 AM EDT Spoke with Josselyn. She said Regla is in the hospital with UTI (she said she needed IV antibiotics, sounds like she had sepsis) but she is about to be discharged and they are leaning towards sending her to rehab. She was asking if they postpone her eyelid procedure scheduled for 12/16, how soon couldshe be put back on with us? I told her Dr. Mcclelland is flexible and would be willing to add her on just about any day he is operating in [place]. She decided to just go ahead then and push back the procedure to 01/06. I told her to keep us updated if they need to change the date again for any reason. * Telephone Encounter - Wilma Paige OSA - 12/12/2023 8:39 AM EDT Pt is in the hospital for a infection. Daughter Josselyn called in and said she is scheduled for surgery with dr. Stiles on 12/16 but I just see a appt scheduled for that day. Daughter wants to speak to a nurse in regards to this up coming appt/surgery and would really like if someone could call her back today because they are trying to decide if pt will be returning home or to a rehab. Daughter Josselyn can be reached at [phone] Thank you Wilma documented in this encounter Plan of Treatment Upcoming Encounters Date Type Department Care Team (Late st Contact Info) Description 01/21/2024 9:10 AM EDT Office Visit Ophthalmology, [facility] 132 [facility] [place] [address] Romel Mcclelland, DO [address] [place] [address] 02/11/2024 11:20 AM EDT Office Visit Dermatology [address] [place] [address] Sheryl Pena PA-C [address] [place] [address] [place] [address] 03/01/2024 11:20 AM EDT Office Visit Ophthalmology, [facility] 132 [facility] [place] [address] Romel Mcclelland, [address] [place] [address] 03/04/2024 5:30 PM EDT Home Visit [facility] 132 [facility] [place] [address] Destiny Schultz, RN 132 [facility] [place] [address] 03/30/2024 3:40 PM EDT Office Visit Family Medicine [address] [place] [phone] Verónica Benavides MD [address] [place] [address] [place] [address] 04/21/2024 10:30 AM EDT Telemedicine Urology, [facility] [address] [facility] [place] [address] Chandler Pena MD 27 [facility] [place] [address] [place] [address] 11/24/2024 1:40 PM EDT Office Visit Dermatology [address] [place] [address] Sheryl Pena PA-C [address] [place] [address] [place] [address] Health Maintenance Due Date Last Done Comments [...] Additional history exists CKD PHOS USE SMARTSET 87325 02/08/202401/23, 08/07/2021, 11/09/2019, Additional history exists TSH 03/25/2024 03/25/2023, 07/0 10/2022, 10/28/2022, Additional history exists Influenza Vaccine (FLU shot) (Season Ended) 2024 06/20/2022, 06/20/2022, 06/29/2021, Additional history exists CKD HGB USE SMARTSET 60047 05/26/202405/26, 05/26/2023, 04/07/2023, Additional history exists Pneumococcal [...] Documents on File Type Date Recorded Patient Certification Officer Expl anation Advance Directives and Living Will 08/10/2021 ADVANCE DIRECTIVE / LIVING WILL LIVING WILL Healthcare Agents on File Name Relationship Healthcare Agent Relationshi p Communication Josselyn Judd Adult Child Health Care Power of Attor nathalie Care Teams Printing Shop Supervisor Relationship Specialty Start Date End Date Verónica Benavides MD [address] [place] [address] [place] [address] PCP - General Family Medicine 09/16/14 documented as of this encounter
--- OUTSIDE RECORDS SUMMARY | 2024-04-24 11:18 | External Medical Summary | Summary of Care ---
Author Name Unknown Organization [facility] Address [address] [place] [address] Phone [phone] Care Team Providers Care Health Services Rn Name Role Phone Verónica Benavides MD Primary Care Provide r Reason for Visit * Reason Onset Date Comments Home Health 01/16/2024 Encounter Details Date Type Department Care Team (Late st Contact Info) Description 01/16/2024 Telephone Family [address] [phone] Verónica Benavides MD [address] [place] [address] [place] [address] Home Health Allergies Active Allergy Reactions Criticality Noted Date Comments Adhesive Tape Medium 01/30/2022 Ibuprofen Hives 01/13/2012 Aspirin Hives,Rash 09/15/2000 Sulfamethoxazole-Trimeth oprim Nausea/vomiting,Othe r (Please comment) 10/27/2020 Dizziness Ciprofloxacin Hcl 06/16/2019 Hoarse, dizzy,disoriented Morphine 09/21/2021 Blacked out Penicillins Hives,Rash 09/15/2000 Prednisone 12/30/2017 Weakness/memory changes/blurred vision documented as of this encounter (statuses as of 01/20/2024) Medications Medication Sig Dispensed Refills Start Date [...] mouth in the morning. 08/08/2021 Active Nystatin 307078 UNIT/GM External Powder (Nystop)Indications: Lydia rash of [...] XL)Indications:Non-i schemic cardiomyopathy (HCC),Coronary artery disease involving [place] coronary artery of [place] heart without angina pectoris,HTN, goal [...] Tablet 3 07/08/2023 Active OneTouch Delica Plus [id number] :Type 2 diabetes mellitus with hemoglobin A1c goal of less than 8.0% ([facility]) Test up to two times daily or [...] Patient not taking.Reported on 10/22/2023 Potassium Chloride [place] ER 20 MEQ Oral Tablet Extended Release [...] as of this encounter (statuses as of 01/20/2024) Active Problems Problem Noted Date Diagnosed Date [...] Continue synthroid Coronary artery disease invo lving [place] coronary artery of [place] heart without angina pectoris 07/03/2012 [...] as of this encounter (statuses as of 01/20/2024) Resolved Problems Problem Noted Date Diagnosed Date [...] as of this encounter (statuses as of 01/20/2024) Immunizations Name Administration Dates Next Due COVID-19 mRNA, LNP-s, No Pre serve, 2-Dose Series ([employer]) 08/29/2021,10/23/2020,10/02/2020 COVID-19, MRNA-LNP, 23-24, P F, 30 MCG/0.3 mL, 12 YRS AND ABOVE, IM ([employer]) 08/04/2023 Covid-19, Mrna, Lnp-s, Pf, B ivalent, 30 Mcg, IM, 12 yrs and above ([employer]) 08/02/2022 Pneumococcal Conjugate Vacc, 13 Valent [...] Telephone Encounter - Vilma Broderick CMA - 01/20/2024 2:30 PM EDT I faxed this note to them as the order. * Telephone Encounter - Verónica Benavides MD - 01/16/2024 1:58 PM EDT OK to extend * Telephone Encounter - Mami Penny LPN - 01/16/2024 12:49 PM EDT LUCIA PT/OT/ST Katy Start of Care/Continuation Smith PT, Calling from: [facility] PT Plan of care: one times per week for 2 weeks: Beginning week of January 18. Focusing on: gait training, transfer training and strengthening Concerns: no None Symptoms: none Vitals: T 96.8 P 72 RR 18 BP 116/70 SP O2 97 Lung sounds clear Weight 237 Blood sugar 140 FBD Narrative: Smith calling from [facility] HH. PT. Patient had outpatient surgery on her right eye. She satin her chair for a few days after. Became weak again. Asking for extended PT orders. Call back Smith with any advice or orders at [phone] Please fax new orders to [facility] Home Health Advised that additional visit orders will be signed by Dr. Benavides and to fax to the office for signature documented in this encounter Plan of Treatment Upcoming Encounters Date Type Department Care Team (Late st Contact Info) Description 01/21/2024 9:10 AM EDT Office Visit Ophthalmology, [facility] 132 [facility] [place] [address] Romel Mcclelland, DO [address] [place] [address] 02/11/2024 11:20 AM EDT Office Visit Dermatology [address] [place] [address] Sheryl Pena PA-C [address] [place] [address] [place] [address] 03/01/2024 11:20 AM EDT Office Visit Ophthalmology, [facility] 132 [facility] [place] [address] Romel Mcclelland, 16 [facility] [place] [address] 03/04/2024 5:30 PM EDT Home Visit [facility] 132 [facility] [place] [address] Destiny Schultz, POPPY 132 [facility] [place] [address] 03/30/2024 3:40 PM EDT Office Visit Family Medicine [address] [place] [phone] Verónica Benavides MD [address] [place] [address] [place] [address] 04/21/2024 10:30 AM EDT Telemedicine Urology, [facility] 132 [facility] [place] [address] Chandler Pena MD 27 [facility] [address] [place] [address] 11/24/2024 1:40 PM EDT Office Visit Dermatology [address] [place] [address] Sheryl Pena PA-C [address] [place] [address] [place] [address] Health Maintenance Due Date Last Done Comments [...] Additional history exists CKD PHOS USE SMARTSET 09721 02/08/2024 06/01/2023, 08/07/2021, 11/09/2019, Additional history exists TSH 03/25/2024 03/25/2023, 07/0 10/2022, 10/28/2022, Additional history exists Influenza Vaccine (FLU shot) (Season Ended) 2024 06/20/2022, 06/20/2022, 06/29/2021, Additional history exists CKD HGB USE SMARTSET 19689 05/26/202405/26, 05/26/2023, 04/07/2023, Additional history exists Pneumococcal [...] Documents on File Type Date Recorded Patient Sign Carpenter Expl anation Advance Directives and Living Will 08/10/2021 ADVANCE DIRECTIVE / LIVING WILL LIVING WILL Healthcare Agents on File Name Relationship Healthcare Agent [facility] p Communication Josselyn Judd [facility] Power of Attor nathalie Care Teams Health Services Rn Relationship Specialty Start Date End Date Verónica Benavides MD [address] [place] [address] [place] [phone] PCP - General Family Medicine 09/16/14 documented as of this encounter
--- OUTSIDE RECORDS SUMMARY | 2024-04-24 11:18 | External Medical Summary ---
Author Name Unknown Address Unknown Organization K01:[facility] [place] [address] [facility] [id number] Laboratory Report Ordering Provider Test Date Status LAURA REZA 01/26/2024 09:29:19 Final <10,000 colonies/ml mixed no rmal rachid Observation Date Value Abnormality Reference (Units ) Status Bacteria identified in Specimen by Culture 01/26/2024 09:29:19 [id number]^PROTEUS MIRABILIS Abnormal Final >100,000 colonies/mL Proteus mirabilis Performing Location [facility] [place] [address] [place] [address] Ordering Provider Test Date Status LAURA REZA 01/26/2024 09:29:19 Final Observation Date Value Abnormality Reference (Units ) Status Ampicillin 01/26/2024 09:29:19 <=2 Susceptible Final Cefazolin 01/26/2024 09:29:19 <=4 Susceptible Final Cefepime susceptibility 01/26/2024 09:29:19 <=1 Susceptible Final Ceftriaxone suceptibility 01/26/2024 09:29:19 <=1 Susceptible Final Ciprofloxacin 01/26/2024 09:29:19 <=0.25 Susceptible Final Due to serious side effects, the FDA has advised against using Ciprofloxacin to treat uncomplicated UTIs and respiratory tract infections unless there are no alternative treatment options. Gentamicin susceptibility 01/26/2024 09:29:19 <=1 Susc eptible Final Piperacillin + Tazobactamsusceptibility 01/26/2024 09:29:19 <=4 Susceptible Final TMP-SMZ susceptibility 01/26/2024 09:29:19 <=20 Suscept ible Final Test: Culture, Urine, Quanti tative
Specimen Source: Urine, Clean Catch
Specimen Type: Urine
Specimen Date: 01/26/2024928
Result Date: 01/28/2024729
Result Status: Final result
Abnormal: Yes
Resulting Lab: [facility] [place]
[address]
[place] [address]

CULTURE

>100,000 colonies/mL Proteus mirabilis (Abnormal)

<10,000 [...] alternative treatment options.

null Performing Location [facility] [place] [address] [facility] [id number]
--- OUTSIDE RECORDS SUMMARY | 2024-04-24 11:19 | External Medical Summary | Summary of Care ---
Author Name Unknown Organization [facility] Address [address] [place] [address] Phone [phone] Care Team Providers Care Real Estate Transaction Coordinator Name Role Phone Verónica Benavides MD Primary Care Provide r Reason for Visit * Reason Onset Date Comments Appointment 01/12/2024 Encounter Details Date Type Department Care Team (Late st Contact Info) Description 01/12/2024 Telephone Dermatology [facility] [address] [place] [address] Services, Scheduling [address] [place] [address] Appointment Allergies Active Allergy Reactions Criticality Noted [...] mouth in the morning. 08/08/2021 Active Nystatin 239998 UNIT/GM External Powder (Nystop)Indications: Lydia rash of [...] Tablet 3 07/08/2023 Active OneTouch Delica Plus [id number] :Type 2 diabetes mellitus with hemoglobin A1c goal of less than 8.0% ([facility]) Test up to two times daily or as directed by [facility] pharmacist 200 Each 3 07/11/2023 [...] no improvement on day 3, contact [facility] for possible home visit 1 Each [...] mRNA, LNP-s, No Pre serve, 2-Dose Series ([employer]) 08/29/2021,10/23/2020,10/02/2020 COVID-19, MRNA-LNP, 23-24, P F, 30 MCG/0.3 mL, 12 YRS AND ABOVE, IM ([facility]) 08/04/2023 Covid-19, Mrna, Lnp-s, Pf, B ivalent, 30 Mcg, IM, 12 yrs and above ([employer]) 08/02/2022 Pneumococcal Conjugate Vacc, 13 Valent (Prevnar) [...] encounter Miscellaneous Notes * Telephone Encounter - Kenna De OSA - 01/12/2024 12:26 PM EDT [place], 3 day urgent referral placed for skin lesion. If you can please with scheduling. Thank You documented in this encounter Plan of Treatment Upcoming Encounters Date Type Department Care Team (Late st Contact Info) Description 01/21/2024 9:10 AM EDT Office Visit Ophthalmology, [address] [address] Romel Mcclelland, DO [address] [place] [address] 03/01/2024 11:20 AM EDT Office Visit Ophthalmology, [facility] 132 [place] [address] Romel Mcclelland, [address] [place] [address] 03/04/2024 5:30 PM EDT Home Visit [facility] 132 [facility] [place] [address] Destiny Schultz, POPPY 132 [facility] [place] [address] 03/30/2024 3:40 PM EDT Office Visit Family Medicine [address] [place] [phone] Verónica Benavides MD [address] [place] [address] [place] [address] 04/21/2024 10:30 AM EDT Telemedicine Urology, [facility] [place] [address] Chandler Pnea MD 27 [facility] [address] [place] [address] 11/24/2024 1:40 PM EDT Office Visit Dermatology [address] [place] [address] Sheryl Pena PA-C [address] [place] [address] [place] [address] Health Maintenance Due Date Last Done Comments [...] Additional history exists CKD PHOS USE SMARTSET 48200 02/08/202401/23, 08/07/2021, 11/09/2019, Additional history exists TSH 03/25/2024 03/25/2023, 07/0 10/2022, 10/28/2022, Additional history exists Influenza Vaccine (FLU shot) (Season Ended) 2024 06/20/2022, 06/20/2022, 06/29/2021, Additional history exists CKD HGB USE SMARTSET 09609 05/26/202405/26, 05/26/2023, 04/07/2023, Additional history exists Pneumococcal [...] Documents on File Type Date Recorded Patient Yield Loss Inspector Expl anation Advance Directives and Living Will 08/10/2021 ADVANCE DIRECTIVE / LIVING WILL LIVING WILL Healthcare Agents on File Name Relationship Healthcare Agent [facility] p Communication Josselyn Judd Adult Child Health Care Power of Attor nathalie Care Teams Real Estate Transaction Coordinator Relationship Specialty Start Date End Date Verónica Benavides MD [address] [place] [address] [place] [phone] PCP - General Family Medicine 09/16/14 documented as of this encounter
--- OUTSIDE RECORDS SUMMARY | 2024-04-24 11:19 | External Medical Summary | Summary of Care ---
Author Name Unknown Organization [facility] Address [address] [place] [address] Phone [phone] Care Team Providers Care Mold Carrier Name Role Phone Verónica Benavides MD Primary Care Provide r Reason for Visit * Reason Comments [facility]: Maintenance Encounter Details Date Type Department Care Team ([facility] st Contact Info) Description 01/08/2024 5:30 PM EDT [facility] Visit [facility], [facility] 132 [facility] [place] [address] Destiny Schultz, POPPY [facility] [id number] Allergies Active Allergy Reactions Criticality Noted Date Comments Adhesive Tape Medium 01/30/2022 Ibuprofen Hives 01/13/2012 Aspirin Hives,Rash 09/15/2000 Sulfamethoxazole-Trimeth oprim Nausea/vomiting,Othe r (Please comment) 10/27/2020 Dizziness Ciprofloxacin Hcl 06/16/2019 Hoarse, dizzy,disoriented Morphine 09/21/2021 Blacked out Penicillins Hives,Rash 09/15/2000 Prednisone 12/30/2017 Weakness/memory changes/blurred vision documented as of this encounter (statuses as of 01/09/2024) Medications Medication Sig Dispensed Refills Start Date [...] in the morning. 0 08/08/2021 Active Nystatin 341100 UNIT/GM External Powder (Nystop)Indications: Lydia rash of [...] Tablet 3 07/08/2023 Active OneTouch Delica Plus [id number] :Type 2 diabetes mellitus with hemoglobin A1c [...] If no improvement on day 3, contact [facility] for possible home visit 1 Each 0 11/28/2023 Active Meclizine HCl 25 MG Oral Tablet (Antivert)Indication s:Vertigo Take 1 tablet by mouth 3 times a day as needed for dizziness 30 Tablet 5 11/28/2023 Active Ondansetron HCl 4 MG Oral Tablet Take 1 Tablet by mouth every 6 hours as needed for Nausea. 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 Last Assessment & Plan: [facility] Triage Call: Reviewed last C&S [...] as of this encounter (statuses as of 01/09/2024) Resolved Problems Problem Noted Date Diagnosed Date [...] as of this encounter (statuses as of 01/09/2024) Immunizations Name Administration Dates Next Due COVID-19 mRNA, LNP-s, No Pre serve, 2-Dose Series (Dely) 08/29/2021,10/23/2020,10/02/2020 COVID-19, MRNA-LNP, 23-24, P F, 30 MCG/0.3 mL, 12 YRS AND ABOVE, IM ([facility]) 08/04/2023 Covid-19, Mrna, Lnp-s, Pf, B ivalent, 30 Mcg, IM, 12 yrs and above (Dely) 08/02/2022 Pneumococcal Conjugate Vacc, 13 Valent (Prevnar) [...] Reading Time Taken Comments Blood Pressure 104/76 01/08/2024 4:45 PM EDT Pulse 72 01/08/2024 4:45 PM EDT Temperature 37.1 C (98.7 F) 01/08/2024 4:45 PM ED T Respiratory Rate 18 01/08/2024 4:45 PM EDT Oxygen Saturation 93% 01/08/2024 4:45 PM EDT Inhaled Oxygen Concentration - - Weight 108 kg (238 lb) 01/08/2024 4:45 PM EDT Height - - Body Mass Index 44.97 02/26/2023 10:32 AM EDT documented in this encounter Progress Notes * Destiny Schultz RN - 01/08/2024 4:20 PM EDT [facility] Visit Date: 01/08/2024 Time: 4:21 PM Name: Regla Castano : 1935 Current Concerns: Patient seen for follow up- h/o falls/ UTI, CHF, CKD, DM2 S/P Entropion repair of right lower eyelid using lateral tarsal strip and quickert suture 01/06 Right eye with bruising- cold compresses Picture scanned to chart Daughter reports patient doing very well since discharge from hospital Blood sugar- 108 Weight- 238 VS wnl Lungs clear bilaterally Sob with exertion Chronic BLE lymphedema Voiding without difficulty Bowels wnl- per report Appetite good Taking fluids well Denies pain Problems/Symptoms: Review of Systems Constitutional: Negative. HENT: Negative. Respiratory: Positive for shortness of breath. Cardiovascular: Positive for leg swelling. Gastrointestinal: Negative. Genitourinary: Negative. Musculoskeletal: Positive for gait problem. Skin: Negative. Hematological: Negative. Psychiatric/Behavioral: Negative. Physical Exam: BP 104/76 (BP Site: Right Arm, BP Position: Sitting, BP Cuff Size: Regular) | Pulse 72 | Temp 37.1 C (98.7 F) (Tympanic) | Resp 18 | Wt 108 kg (238 lb) | SpO2 93% | BMI 44.97 kg/m | BSA 2.16 [...] and Affect: Mood normal. Behavior: Behavior normal. [facility]-10 Completed this Visit: No. No falls since last visit Treatment/Plan: Low na diet Weigh daily Blood sugar daily Continue medications as prescribed Keep all upcoming MD appointments Fall precautions 24 hour caregivers Cold compressed to right eye Home Interventions Provided: Reinforced current Plan of Care, including self-management and medication regimen Patient's Goals of Care: Stay in my own home Continue to walk with my walker Stay out of the hospital Patient's 'Red Flags': . Increased sob Increased swelling Falls Urinary symptoms- confusion, burning Patient Needs to Remember: Call [facility] with any medical concerns/ red flags Referrals Needed: N/a Follow Up: Is there cellular connectivity/connectivity in the home? Yes Does the patient have internet in the home? Yes Patient encouraged to call the intake phone number for all urgent but not emergent issues. Scheduled to follow up with patient in 8 weeks. Destiny Byers RN 01/08/2024 4:21 PM documented in this encounter Plan of Treatment Upcoming Encounters Date Type Department Care Team (Late st Contact Info) Description 01/21/2024 9:10 AM EDT Office Visit Ophthalmology, [facility] 132 [facility] [place] [address] Romel Mcclelland, [address] [address] 03/01/2024 11:20 AM EDT Office Visit Ophthalmology, [facility] 132 [facility] [place] [address] Romel Mcclelland, DO [address] [place] [address] 03/04/2024 5:30 PM EDT Home Visit [facility] [place], [facility] 132 [facility] [place] [address] Destiny Schultz RN 132 [place] [address] 03/30/2024 3:40 PM EDT Office Visit Family Medicine [address] [place] [phone] Verónica Benavides MD [address] [place] [address] [place] [address] 04/21/2024 10:30 AM EDT Telemedicine Urology, [facility] [address] [place] [address] Chandler Pena MD 27 [facility] [place] [address] [place] [address] 11/24/2024 1:40 PM EDT Office Visit Dermatology [address] [place] [address] Sheryl Pena PA-C [address] [place] [address] [place] [address] Health Maintenance Due Date Last Done Comments [...] Additional history exists CKD PHOS USE SMARTSET 00362 02/08/202401/23, 08/07/2021, 11/09/2019, Additional history exists TSH 03/25/2024 03/25/2023, 07/0 10/2022, 10/28/2022, Additional history exists Influenza Vaccine (FLU shot) (Season Ended) 2024 06/20/2022, 06/20/2022, 06/29/2021, Additional history exists CKD HGB USE SMARTSET 58247 05/26/202405/26, 05/26/2023, 04/07/2023, Additional history exists Pneumococcal [...] Documents on File Type Date Recorded Patient Contact Lens Assistant Expl anation Advance Directives and Living Will 08/10/2021 ADVANCE DIRECTIVE / LIVING WILL LIVING WILL Healthcare Agents on File Name Relationship Healthcare Agent [facility] Communication Josselyn Judd Adult Child Health Care Power of Attor nathalie Care Teams Mold Carrier Relationship Specialty Start Date End Date Verónica Benavides MD [address] [place] [address] [place] [address] PCP - General Family Medicine 09/16/14 documented as of this encounter
--- OUTSIDE RECORDS SUMMARY | 2024-04-24 11:19 | External Medical Summary | Summary of Care ---
Author Name Unknown Organization [facility] Address [address] [place] [address] Phone [phone] Care Team Providers Care Retention Manager Name Role Phone Verónica Benavides MD Primary Care Provide r Reason for Visit * Reason Onset Date Comments Information 01/12/2024 Encounter Details Date Type Department Care Team (Late st Contact Info) Description 01/12/2024 Telephone [facility] [place] [address] [place], [place] [phone] Services, Scheduling [address] [place] [address] Information (///) Allergies Active Allergy Reactions Criticality Noted Date [...] mouth in the morning. 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 Last Assessment & Plan: [facility] Triage Call: Reviewed last C&S - [...] mRNA, LNP-s, No Pre serve, 2-Dose Series (Brandtree) 08/29/2021,10/23/2020,10/02/2020 COVID-19, MRNA-LNP, 23-24, P F, 30 MCG/0.3 mL, 12 YRS AND ABOVE, IM ([employer]) 08/04/2023 Covid-19, Mrna, Lnp-s, Pf, B ivalent, 30 Mcg, IM, 12 yrs and above (Brandtree) 08/02/2022 Pneumococcal Conjugate Vacc, 13 Valent (Prevnar) [...] Telephone Encounter - Liliam Hsieh OSA - 01/12/2024 12:26 PM EDT Called dermatology reg 3 day referral and the chances of it happening on 01/20 when already at [facility] for the morning appt and they only do derm at [facility], not [facility] and they need to cb with an appt direct form their office for any 3 day urgents so they will be calling daughter regarding this appt documented in this encounter Plan of Treatment Upcoming Encounters Date Type Department Care Team (Late st Contact Info) Description 01/21/2024 9:10 AM EDT Office Visit Ophthalmology, [facility] 132 [facility] [place] [address] Romel Mcclelland, [address] [place] [address] [place] [address] 03/01/2024 11:20 AM EDT Office Visit Ophthalmology, [facility] 132 [facility] [place] [address] Romel Mcclelland, DO [address] [place] [address] 03/04/2024 5:30 PM EDT [facility], [facility] 132 [facility] [place] [address] Destiny Schultz, POPPY 132 [facility] [place] [address] 03/30/2024 3:40 PM EDT Office Visit Family Medicine [address] [place] [phone] Verónica Benavides MD [address] [place] [address] [place] [address] 04/21/2024 10:30 AM EDT Telemedicine Urology, [facility] 132 [facility] [place] [address] Chandler Pena MD 27 [facility] 270 [place] [address] 11/24/2024 1:40 PM EDT Office Visit Dermatology [address] [place] [address] Sheryl Pena, DORIE [address] [place] [address] [place] [address] Health Maintenance Due Date Last Done Comments [...] Additional history exists CKD PHOS USE SMARTSET 39828 02/08/202401/23, 08/07/2021, 11/09/2019, Additional history exists TSH 03/25/2024 03/25/2023, 07/0 10/2022, 10/28/2022, Additional history exists Influenza Vaccine (FLU shot) (Season Ended) 2024 06/20/2022, 06/20/2022, 06/29/2021, Additional history exists CKD HGB USE SMARTSET 10980 05/26/202405/26, 05/26/2023, 04/07/2023, Additional history exists Pneumococcal [...] on File Type Date Recorded Patient Machine Bender Expl anation Advance Directives and Living Will 08/10/2021 ADVANCE DIRECTIVE / LIVING WILL LIVING WILL Healthcare Agents on File Name Relationship Healthcare Agent [facility] p Communication Josselyn Judd Adult Child Health Care Power of Attor nathalie Care Teams Retention Manager Relationship Specialty Start Date End Date Verónica Benavides MD [address] [place] [address] [place] [phone] PCP - General Family Medicine 09/16/14 documented as of this encounter
--- OUTSIDE RECORDS SUMMARY | 2024-04-24 11:19 | External Medical Summary | Summary of Care ---
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 0 08/08/2021 Active Nystatin 845147 UNIT/GM External Powder (Nystop)Indications: Lydia rash of [...] Tablet 3 07/08/2023 Active OneTouch Delica Plus [id number] :Type 2 diabetes mellitus with hemoglobin A1c goal of less than 8.0% ([facility]) Test up to two times daily or as directed by [facility] pharmacist 200 Each 3 07/11/2023 [...] at bedtime 3.5 g 3 01/07/2024 Active Hospital, Clinic, or Other Facility Administered Medication Ordered Dose Route Frequency Start Date End Date Status lidocaine-epinephrine 2 %-1:186499 inj 100 mgIndications:Spastic entropion of right eye 100 mg SC ONCE 01/07/2024 01/07/2024 En ded Erythromycin ophthalmic ointmentIndications:Spasti c entropion of right eye RT EYE ONCE 01/07/2024 01/07/2024 Ended documented as of this encounter (statuses as of 01/07/2024) Active Problems Problem Noted Date Diagnosed Date [...] as of this encounter (statuses as of 01/07/2024) Resolved Problems Problem Noted Date Diagnosed Date [...] as of this encounter (statuses as of 01/07/2024) Immunizations Name Administration Dates Next Due COVID-19 mRNA, LNP-s, No Pre serve, 2-Dose Series (Plastic Jungle) 08/29/2021,10/23/2020,10/02/2020 COVID-19, MRNA-LNP, 23-24, P F, 30 MCG/0.3 mL, 12 YRS AND ABOVE, IM ([facility]) 08/04/2023 Covid-19, Mrna, Lnp-s, Pf, B ivalent, 30 Mcg, IM, 12 yrs and above (Plastic Jungle) 08/02/2022 Influenza, Whole Virus 08/07/2000 Pneumococcal Conjugate [...] Progress Notes * Romel Mcclelland DO - 01/07/2024 10:33 AM EDT Office Procedure Note Regla Castano 01/07/2024 Pre/Post Op Dx: Spastic Entropion of right lower eyelid Procedure: Entropion repair of right lower eyelid using lateral tarsal strip and quickert suture Surgeon: Romel Mcclelalnd DO Assistants: Maria Eugenia Pena PA-C Anesthesia: Local 2% Lidocaine with epinephrine Complications: None EBL: minimal Drains: None IVF: None Specimen: none External photos obtained demonstrating above findings Preoperative Evaluation: Patient presented with foreign body sensation and redness of her right eye. On evaluation she was noted to have an entropion of the right lower eyelid. Patient is now for an entropion repair of right lower eyelid. Operative Note: The patient was brought to the procedure room and identified as Regla Castano and the procedure to be performed was confirmed with the patient. After informed consent was obtained the right lateral upper and lower eyelids were infiltrated with 2% lidocaine with epinephrine. The patient was then prepped and draped in the usual sterile fashion. Attention was then turned to the lower eyelid where a lateral canthotomy and inferior cantholysis was performed. A lateral tarsal strip wasthen fashioned. A 4-0 double armed chromic suture was passed from the inferior fornix anteriorly and superiorly exiting inferior to the lashes and fixated. The lateral portion of the eyelids were then approximated to the lateral orbital rim using a double armed 4-0 prolene suture. The lateral canthal angle was reformed with a 6-0 chromic suture. The skin defect in the lateral canthus was closed with the 6-0 chromic suture. Antibiotic ointment was applied. The procedure was performed without comp lications. The patient tolerated the procedure well. Patient was discharged in good condition. Written and verbal discharge instructions were given to the patient. Romel Mcclelland DO documented in this encounter Nursing Notes * Purvi Kerr LPN - 01/07/2024 9:57 AM EDT Patient admitted to procedure room at 9:59 AM and identified by full name and date of Is patient on blood thinners? no . Is patient hypertensive? no, if yes, did you take you blood pressure medication today? yes. The operative team (Dr. Mcclelland), along with Ms. Castano, reviewed that she presents today for entropion repair of right lower eyelid. Ms. Castano agrees with the procedure and operative site. The correct operative site was marked and verified by the operative team. Ms. Castano signed the surgical consent form as witnessed by the operative team. Pre op vitals BP 120/77 P 66 Patient prepped and drapped by Dr. Mcclelland. Procedure completed without incident. Patient tolerated procedure well. Instructions reviewed with patient by Dr. Mcclelland. Patient discharged from procedure room. documented in this encounter Plan of Treatment Upcoming Encounters Date Type Department Care Team (Late st Contact Info) Description 01/08/2024 5:30 PM EDT Home Visit [facility] 132 [facility] [place] [address] Destiny Schultz RN 132 [facility] [place] [address] 01/21/2024 9:10 AM EDT Office Visit Ophthalmology, [facility] 132 [facility] [place] [address] Romel Mcclelland, [address] [address] 03/01/2024 11:20 AM EDT Office Visit Ophthalmology, [address] [place] [address] Romel Mcclelland, [address] [place] [address] 03/30/2024 3:40 PM EDT Office Visit [address] [place] [phone] Verónica Benavides MD [address] [place] [address] [place] [address] 04/21/2024 10:30 AM EDT Telemedicine Urology, [facility] 132 [facility] [place] [address] Chandler Pena MD [address] [place] [address] [place] [address] 11/24/2024 1:40 PM EDT Office Visit Dermatology [address] [place] [address] Sheryl Pena PA-C [address] [place] [address] [place] [address] Scheduled Orders Name Type Priority Associated Diagnoses Orde r Schedule EXTERNAL EYE PHOTOGRAPHY Procedures Routine 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] Ordered: 01/07/2024 Health Maintenance Due Date Last Done Comments [...] Additional history exists CKD PHOS USE SMARTSET 86480 02/08/202401/23, 08/07/2021, 11/09/2019, Additional history exists TSH 03/25/2024 03/25/2023, 07/10/2022, 10/28/2022, Additional history exists Influenza Vaccine (FLU shot) (Season Ended) 2024 06/20/2022, 06/20/2022, 06/29/2021, Additional history exists CKD HGB USE SMARTSET 78320 05/26/202405/26, 05/26/2023, 04/07/2023, Additional history exists Pneumococcal [...] Primary Spastic entropion documented in this encounter Administered Medications Inactive Administered Medications - up to 3 most recent administrations Medication Order MAR Action Action Date Dose Rate Site Erythromycin ophthalmic ointment Right eye, ONCE, On Fri01/07/24 at 1130, For 1 dose Given 01/07/2024 11:07 AM EDT 1 g Eye Right lidocaine-epinephrine 2 %-1:086641 inj 100 mg 100 mg (5 mL), Subcutaneous, ONCE, On Fri01/07/24 at 1130, For 1 dose Given 01/07/2024 11:07 AM EDT 100 mg Eye Right documented in this encounter Additional Health Concerns 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/2023 documented as of this encounter Advance Directives Documents on File Type Date Recorded 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
--- OUTSIDE RECORDS SUMMARY | 2024-04-24 11:19 | External Medical Summary | Summary of Care ---
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 0 08/08/2021 Active Nystatin 919901 UNIT/GM External Powder (Nystop)Indications: Lydia rash of [...] XL)Indications:Non-i schemic cardiomyopathy (HCC),Coronary artery disease involving caddo coronary artery of caddo heart without angina pectoris,HTN, goal below 140/90 [...] Tablet 3 07/08/2023 Active OneTouch Delica Plus [id number] :Type 2 diabetes mellitus with hemoglobin A1c [...] If no improvement on day 3, contact [facility] for possible home visit 1 [...] Start Date End Date Status lidocaine-epinephrine 2 %-1:016495 inj 100 mgIndications:Spastic entropion of right eye 100 mg SC ONCE 01/07/2024 01/07/2024 Ac tive Erythromycin ophthalmic ointmentIndications:Spasti c entropion of right eye RT EYE ONCE 01/07/2024 01/07/2024 Active documented as of this encounter [...] 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 Last Assessment & Plan: [facility] Triage Call: Reviewed last C&S [...] Continue synthroid Coronary artery disease invo lving caddo coronary artery of caddo heart without angina pectoris 07/03/2012 Overview: 60% [...] mRNA, LNP-s, No Pre serve, 2-Dose Series ([employer]) 08/29/2021,10/23/2020,10/02/2020 COVID-19, MRNA-LNP, 23-24, P F, 30 MCG/0.3 mL, 12 YRS AND ABOVE, IM ([employer]) 08/04/2023 Covid-19, Mrna, Lnp-s, Pf, B ivalent, 30 Mcg, IM, 12 yrs and above ([employer]) 08/02/2022 Pneumococcal Conjugate Vacc, 13 Valent (Prevnar) [...] tarsal strip and quickert suture Surgeon: Romel Mcclelland DO Assistants: Maria Eugenia Pena PA-C Anesthesia: [...] this encounter Nursing Notes * Purvi Kerr Kathia, CHANDRIKA - 01/07/2024 9:57 AM EDT Patient admitted [...] Description 01/08/2024 5:30 PM EDT Home Visit [facility], [facility] 132 [place] [address] Destiny Schultz RN 132 [place] [address] 01/21/2024 9:10 AM EDT Office Visit Ophthalmology, [facility] [address] [place] [address] Romel Mcclelland, [address] [address] 03/01/2024 11:20 AM EDT Office Visit Ophthalmology, [address] [place] [address] Romel Mcclelland, DO [address] [place] [address] 03/30/2024 3:40 PM EDT Office Visit Family Medicine [address] [place] [address] Verónica Benavides MD [address] [place] [address] [place] [address] 04/21/2024 10:30 AM EDT Telemedicine Urology, [facility] 132 [place] [address] Chandler Pena MD [address] [address] [place] [address] 11/24/2024 1:40 PM EDT Office Visit Dermatology [address] [place] [address] Sheryl Pena PA-C [address] [place] [address] [place] [address] Scheduled Orders Name Type Priority Associated Diagnoses [...] Additional history exists CKD PHOS USE SMARTSET 21328 02/08/202401/23, 08/07/2021, 11/09/2019, Additional history exists TSH 03/25/2024 03/25/2023, 07/0 10/2022, 10/28/2022, Additional history exists Influenza Vaccine (FLU shot) (Season Ended) 2024 06/20/2022, 06/20/2022, 06/29/2021, Additional history exists CKD HGB USE SMARTSET 08968 05/26/202405/26, 05/26/2023, 04/07/2023, Additional history exists Pneumococcal [...] Documents on File Type Date Recorded Patient 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
--- OUTSIDE RECORDS SUMMARY | 2024-04-24 11:19 | External Medical Summary | Summary of Care ---
Author Name Unknown Organization [facility] Address [address] [place] [address] Phone [phone] Care Team Providers Care Screen Printing Press Operator Name Role Phone Verónica Benavides MD Primary Care Provide r Reason for Referral * Evaluate & Treat - Unlimited Visits (Within 3 days (urgent)) - Authorized Specialty Diagnoses / Procedures Referred By Chaz vaz Referred To Contact Dermatology Diagnoses Skin lesion Nigel Cosme MD [address] [place], [place] [address] [address] Referral ID Status Reason Start Date Expiration Date Visits Requested Visits Authorized [id number] Authorized Specialty Services Required 01/12/2024 999 999 Question Answer Referral Priority Within 3 days (urgent) Where should this appointment be scheduled? [facility] Are you referring the patient for Mohs Surgery and have a current positive skin cancer biopsy result? No What is the reason for the patient referral? Rash/Skin Check/Eval of Lesion or Mole Reason for Visit * Reason Onset Date Comments [facility]: Maintenance 01/12/2024 Encounter Details Date Type Department Care Team ([facility] Contact Info) Description 01/12/2024 Telephone [facility], [facility] [address] [place] [address] [facility], Nurse [facility] 132 [facility] [place] [address] [facility]: Maintenance Allergies Active Allergy [...] mouth in the morning. 08/08/2021 Active Nystatin 913691 UNIT/GM External Powder (Nystop)Indications: Lydia rash of [...] XL)Indications:Non-i schemic cardiomyopathy (HCC),Coronary artery disease involving sioux coronary artery of sioux heart without angina pectoris,HTN, goal below [...] Tablet 3 07/08/2023 Active OneTouch Delica Plus [id number] :Type 2 diabetes mellitus with hemoglobin A1c goal of less than 8.0% ([facility]) Test up to two times daily or as directed by [facility] pharmacist 200 Each 3 07/11/2023 [...] Continue synthroid Coronary artery disease invo lving sioux coronary artery of sioux heart without angina pectoris 07/03/2012 Overview: [...] mRNA, LNP-s, No Pre serve, 2-Dose Series ([employer]) 08/29/2021,10/23/2020,10/02/2020 COVID-19, MRNA-LNP, 23-24, P F, 30 MCG/0.3 mL, 12 YRS AND ABOVE, IM ([employer]-Comirnaty) 08/04/2023 Covid-19, Mrna, Lnp-s, Pf, B ivalent, [...] Telephone Encounter - Nigel Cosme MD - 01/12/2024 9:57 AM EDT Recommendations: Referral placed as urgent per patient family request. Plan DERMATOLOGY REFERRAL OP E * Telephone Encounter - Carol Portillo RN - 01/12/2024 9:39 AM EDT [facility] instructor watch assembly Acute Call Date: 01/12/2024 Time: 9:39 AM Name: Regla Castano : 1935 Caller: Josselyn Relationship to Stoner Chief Complaint Patient presents with [facility]: Maintenance HPI: Regla Castano is a 88 year old female whose daughter is is calling [employer] at Home Intake to report that her mother, Regla has a couple of spots on her face, saw a furnace repair mechanic 2 years ago for the same thin but a friend of hers told it looked like skin cancer. Josselyn reports Regla being upset thatshe may have skin cancer and is anxious, Josselyn requesting a Dermatology referral and hoping to get appt for the same day she is at [place] next Saturday 01/20 for a post op eye appointment. Nursing Assessment: Patient's chief complaint for this call: Other, describe spots on her face Pain Denies pain Baseline Assessment Able to [...] No COPD exacerbation symptoms: No Reinforcement Education: Routed to care team Requesting Derm referral for 01/20 Will route to [facility] schedulers to assist with scheduling appt. Treatment/Plan: Level of call: Non-Acute Recommended treatment plan: Clinical advice given over the phone Referral(s) with current selections available: Other; Dermatology Call back instructions provided to patient. KATY Lynn Movie Operator [facility] documented in this encounter Plan of Treatment Upcoming Encounters Date Type Department Care Team (Late st Contact Info) Description 01/21/2024 9:10 AM EDT Office Visit Ophthalmology, [facility] 132 [place] [address] Romel Mcclelland, DO [address] [place] [address] 03/01/2024 11:20 AM EDT Office Visit Ophthalmology, [facility] 132 [facility] [place] [address] Romel Mcclelladn, DO [address] [place] [address] 03/04/2024 5:30 PM EDT [facility] 132 [facility] [place] [address] Destiny Schultz RN 132 [place] [address] 03/30/2024 3:40 PM EDT Office Visit Family Medicine [address] [place] [address] Verónica Benavides MD [address] [place] [address] [place] [address] 04/21/2024 10:30 AM EDT Telemedicine Urology, [facility] 132 [facility] [place] [address] Chandler Pena MD [address] [facility] [address] [place] [address] 11/24/2024 1:40 PM EDT Office Visit Dermatology [address] [place] [address] Sheryl Pena PA-C [address] [place] [address] [place] [address] Scheduled Referrals Name Type Priority Associated Diagnoses Orde r Schedule DERMATOLOGY REFERRAL OP Referral Within 3 days (urgent) Skin lesion Ordered: 01/12/2024 Health Maintenance Due Date Last Done Comments [...] Additional history exists CKD PHOS USE SMARTSET 28235 02/08/202401/23, 08/07/2021, 11/09/2019, Additional history exists TSH 03/25/2024 03/25/2023, 07/0 10/2022, 10/28/2022, Additional history exists Influenza Vaccine (FLU shot) (Season Ended) 2024 06/20/2022, 06/20/2022, 06/29/2021, Additional history exists CKD HGB USE SMARTSET 69778 05/26/202405/26, 05/26/2023, 04/07/2023, Additional history exists Pneumococcal [...] as of this encounter Visit Diagnoses Diagnosis Skin lesion- Primary Unspecified disorder of skin and subcutaneous tissue documented in this encounter Additional Health Concerns 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/2023 documented as of this encounter Advance Directives Documents on File Type Date Recorded Patient Interior Assemblies Developer Prover Expl anation Advance Directives and Living Will 08/10/2021 ADVANCE DIRECTIVE / LIVING WILL LIVING WILL Healthcare Agents on File Name Relationship Healthcare Agent [facility]oss[facility] Adult Child Health Care Power of Attor nathalie Care Teams Screen Printing Press Operator Relationship Specialty Start Date End Date Verónica Benavides MD [address] [place] [address] [place] [phone] PCP - General Family Medicine 09/16/14 documented as of this encounter
--- OUTSIDE RECORDS SUMMARY | 2024-04-24 11:19 | External Medical Summary | Summary of Care ---
Author Name Unknown Organization [facility] Address [address] [place] [address] Phone [phone] Care Team Providers Care Wellness Coordinator Name Role Phone Verónica Benavides MD Primary Care Provide r Reason for Referral * Evaluate & Treat - Unlimited Visits (Within 3 days (urgent)) - Authorized Specialty Diagnoses / Procedures Referred By Chaz vaz Referred To Contact Dermatology Diagnoses Skin lesion Nigel Cosme MD [address] [place], [place] [address] [address] Referral ID Status Reason Start Date Expiration Date Visits Requested Visits Authorized [id number] Authorized Specialty Services Required 01/12/2024 999 999 [...] Encounter Details Date Type Department Care Team ([facility] Contact Info) Description 01/12/2024 Telephone [facility], [facility] [address] [place] [address] [facility] 132 [facility] [place] [address] [facility]: Maintenance Allergies Active Allergy [...] mouth in the morning. 08/08/2021 Active Nystatin 512238 UNIT/GM External Powder (Nystop)Indications: Lydia rash of [...] XL)Indications:Non-i schemic cardiomyopathy (HCC),Coronary artery disease involving noorvik coronary artery of noorvik heart without angina pectoris,HTN, goal below 140/90 [...] Tablet 3 07/08/2023 Active OneTouch Delica Plus [id number] :Type 2 diabetes mellitus with hemoglobin A1c goal of less than 8.0% ([facility]) Test up to two times daily or as directed by [facility] pharmacist 200 Each 3 07/11/2023 Active [...] If no improvement on day 3, contact [facility] for possible home visit 1 [...] 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 Last Assessment & Plan: [facility] Triage Call: Reviewed last C&S [...] Continue synthroid Coronary artery disease invo lving noorvik coronary artery of noorvik heart without angina pectoris 07/03/2012 Overview: 60% [...] mRNA, LNP-s, No Pre serve, 2-Dose Series ([employer]) 08/29/2021,10/23/2020,10/02/2020 COVID-19, MRNA-LNP, 23-24, P F, 30 MCG/0.3 mL, 12 YRS AND ABOVE, IM ([employer]-Comirnaty) 08/04/2023 Covid-19, Mrna, Lnp-s, Pf, B ivalent, [...] 01/12/2024 9:39 AM EDT [facility] answering service telephone operator Acute Call Date: 01/12/2024 Time: 9:39 AM Name: Regla Castano : 1935 Caller: Josselyn Relationship to Stoner Chief Complaint Patient presents with [facility]: Maintenance HPI: Regla Castano is a 88 year old female whose daughter is is calling [employer] at Home Intake to report that her mother, Regla has a couple of spots on her face, saw a leaf sucker operator 2 years ago for the same thin but a friend of hers told it looked like skin cancer. Josselyn reports Regla being upset thatshe may have skin cancer and is anxious, Josselyn requesting a Dermatology referral and hoping to get appt for the same day she is at [facility] next Saturday 01/20 for a post op [...] Derm referral for 01/20 Will route to [facility] schedulers to assist with scheduling appt. Treatment/Plan: Level of call: Non-Acute Recommended treatment plan: Clinical advice given over the phone Referral(s) with current selections available: Other; Dermatology Call back instructions provided to patient. KATY Lynn Office Helper [facility] documented in this encounter Plan of Treatment Upcoming Encounters Date Type Department Care Team (Late st Contact Info) Description 01/21/2024 9:10 AM EDT Office Visit Ophthalmology, [facility] 132 [place] [address] Romel Mcclelland, DO 16 [place] [address] 03/01/2024 11:20 AM EDT Office Visit Ophthalmology, [facility] 132 [facility] [place] [address] Romel Mcclelland, DO [address] [place] [address] 03/04/2024 5:30 PM EDT [facility] 132 [facility] [place] [address] Destiny Schultz RN 132 [place] [address] 03/30/2024 3:40 PM EDT Office Visit Family Medicine [address] [place] [address] Verónica Benavides MD [address] [place] [address] [place] [address] 04/21/2024 10:30 AM EDT Telemedicine Urology, [facility] 132 [facility] [place] [address] Chandler Pena MD 27 [facility] [address] [place] [address] 11/24/2024 1:40 PM EDT Office Visit Dermatology [address] [place] [address] Sheryl Pena PA-C [address] [place] [address] [place] [address] Scheduled Referrals Name Type Priority Associated Diagnoses [...] Additional history exists CKD PHOS USE SMARTSET 40952 02/08/202401/23, 08/07/2021, 11/09/2019, Additional history exists TSH 03/25/2024 03/25/2023, 07/0 10/2022, 10/28/2022, Additional history exists Influenza Vaccine (FLU shot) (Season Ended) 2024 06/20/2022, 06/20/2022, 06/29/2021, Additional history exists CKD HGB USE SMARTSET 52455 05/26/202405/26, 05/26/2023, 04/07/2023, Additional history exists Pneumococcal [...] Documents on File Type Date Recorded Patient Ammonium Sulfate Operator Expl anation Advance Directives and Living Will 08/10/2021 ADVANCE DIRECTIVE / LIVING WILL LIVING WILL Healthcare Agents on File Name Relationship Healthcare Agent [facility] Communication Josselyn [facility] Adult Child Health Care Power of Attor nathalie Care Teams Wellness Coordinator Relationship Specialty Start Date End Date Verónica Benavides MD [address] [place] [address] [place] [phone] PCP - General Family Medicine 09/16/14 documented as of this encounter
--- OUTSIDE RECORDS SUMMARY | 2024-04-24 11:19 | External Medical Summary | Summary of Care ---
Author Name Unknown Organization [facility] Address [address] [place] [address] Phone [phone] Care Team Providers Care Stock Puller Name Role Phone Verónica Benavides MD Primary Care Provide r Reason for Visit * Reason Onset Date Comments Fax 11/26/2023 Encounter Details Date Type Department Care Team (Late st Contact Info) Description 11/26/2023 Telephone Family [address] [address] Verónica Benavides MD [address] [place] [address] [place] [phone] Fax Allergies Active Allergy Reactions Criticality Noted Date [...] mouth in the morning. 08/08/2021 Active Nystatin 993534 UNIT/GM External Powder (Nystop)Indications :Lydia rash of [...] XL)Indications:Non- ischemic cardiomyopathy (HCC),Coronary artery disease involving coquille coronary artery of coquille heart without angina pectoris,HTN, goal below 140/90 [...] Tablet 3 07/08/2023 Active OneTouch Delica Plus [id number] s:Type 2 diabetes mellitus with hemoglobin A1c goal of less than 8.0% ([facility]) Test up to two times daily or as directed by [facility] pharmacist 200 Each 3 07/11/2023 [...] evening meals. 180 Tablet 1 11/21/2023 Active Ondansetron HCl 4 MG Oral Tablet Take 1 Tablet by mouth every 6 hours as needed for Nausea. 30 Tablet 05/04/2023 4 Discontinu ed(Refill) documented as of [...] 06/29/2021 Last Assessment & Plan: [facility] Triage Call: Reviewed last C&S - [...] Continue synthroid Coronary artery disease invo lving coquille coronary artery of coquille heart without angina pectoris 07/03/2012 Overview: 60% [...] mRNA, LNP-s, No Pre serve, 2-Dose Series ([employer]) 08/29/2021,10/23/2020,10/02/2020 COVID-19, MRNA-LNP, 23-24, P F, 30 [...] RN - 01/12/2024 7:01 AM EDT Order [id number] for Regla Castano (1935) is being fulfilled by [employer]. If you need assistance with this order, please call . * Telephone Encounter - Medina Braswell RN - 01/06/2024 7:05 AM EDT Order sent to [employer] (Closed) * Telephone Encounter - Alona Rolle OSA - 12/31/2023 5:32 PM EDT Liz called from [employer] stating that the pt has [employer] insurance so the order for the blue incontinence pads needs upload to the online [employer] portal. * Telephone Encounter - Alona Mayer [...] for blue incontinence pads. The pt uses [employer]. Ph.[phone] Fax. [phone] documented in this encounter Plan of Treatment Upcoming Encounters Date Type Department Care Team (Late st Contact Info) Description 01/21/2024 9:10 AM EDT Office Visit Ophthalmology, [facility] [address] [place] [address] Romel Mcclelland, DO 16 [place] [address] 03/01/2024 11:20 AM EDT Office Visit Ophthalmology, [facility] [address] [place] [address] Romel Mcclelland, 16 [facility] [place] [address] 03/04/2024 5:30 PM EDT Home Visit [facility] [address] [place] [address] Destiny Schultz, POPPY [address] [place] [address] 03/30/2024 3:40 PM EDT Office Visit Family Medicine [address] [place] [phone] Verónica Benavides MD [address] [place] [address] [place] [address] 04/21/2024 10:30 AM EDT Telemedicine Urology, [facility] 132 [facility] [place] [address] Chandler Pena MD 27 [facility] [address] [place] [address] 11/24/2024 1:40 PM EDT Office Visit Dermatology [address] [place] [address] Sheryl Pena PA-C [address] [place] [address] [place] [address] Health Maintenance Due Date Last Done Comments [...] Additional history exists CKD PHOS USE SMARTSET 73542 02/08/2024 06/01/2023, 08/07/2021, 11/09/2019, Additional history exists TSH 03/25/2024 03/25/2023, 07/0 10/2022, 10/28/2022, Additional history exists Influenza Vaccine (FLU shot) (Season Ended) 2024 06/20/2022, 06/20/2022, 06/29/2021, Additional history exists CKD HGB USE SMARTSET 58058 05/26/202405/26, 05/26/2023, 04/07/2023, Additional history exists Pneumococcal [...] Documents on File Type Date Recorded Patient Nurse Practitioner Adult Expl anation Advance Directives and Living Will 08/10/2021 ADVANCE DIRECTIVE / LIVING WILL LIVING WILL Healthcare Agents on File Name Relationship Healthcare Agent [facility] Communication Josselyn Judd Adult Child Health Care Power of Attor nathalie Care Teams Stock Puller Relationship Specialty Start Date End Date Verónica Benavides MD [address] [place] [address] [place] [address] PCP - General Family Medicine 09/16/14 documented as of this encounter
--- OUTSIDE RECORDS SUMMARY | 2024-04-24 11:19 | External Medical Summary | Summary of Care ---
Author Name Unknown Organization [facility] Address [address] [place] [address] Phone [phone] Care Team Providers Care Scrap Drop Operator Name Role Phone Verónica Benavides MD Primary Care Provide r Reason for Referral * Evaluate & Treat - Unlimited Visits (Within 3 days (urgent)) - Authorized Specialty Diagnoses / Procedures Referred By Chaz vaz Referred To Contact Dermatology Diagnoses Skin lesion Nigel Cosme MD [address] [place], [place] [address] [address] Referral ID Status Reason Start Date Expiration Date Visits Requested Visits Authorized [id number] Authorized Specialty Services Required 01/12/2024 999 999 [...] Encounter Details Date Type Department Care Team ([facility] Contact Info) Description 01/12/2024 Telephone [facility], [facility] [address] [place] [address] [facility] [place] [address] [facility]: Maintenance Allergies Active Allergy [...] mouth in the morning. 08/08/2021 Active Nystatin 819605 UNIT/GM External Powder (Nystop)Indications: Lydia rash of [...] XL)Indications:Non-i schemic cardiomyopathy (HCC),Coronary artery disease involving [place] coronary artery of [place] heart without angina pectoris,HTN, goal below 140/90 [...] Tablet 3 07/08/2023 Active OneTouch Delica Plus [id number] :Type 2 diabetes mellitus with hemoglobin A1c goal of less than 8.0% ([facility]) Test up to two times daily or as directed by [facility] pharmacist 200 Each 3 07/11/2023 [...] Continue synthroid Coronary artery disease invo lving [place] coronary artery of [place] heart without angina pectoris 07/03/2012 Overview: 60% [...] mRNA, LNP-s, No Pre serve, 2-Dose Series ([employer]ian) 08/29/2021,10/23/2020,10/02/2020 COVID-19, MRNA-LNP, 23-24, P F, 30 MCG/0.3 mL, 12 YRS AND ABOVE, IM (Oculogica-Comirnaty) 08/04/2023 Covid-19, Mrna, Lnp-s, Pf, B ivalent, [...] 01/12/2024 9:39 AM EDT [facility] coding and reimbursement specialist Acute Call Date: 01/12/2024 Time: 9:39 AM Name: Regla Castano : 1935 Caller: Josselyn Relationship to Stoner Chief Complaint Patient presents with [facility]: Maintenance HPI: Regla Castano is a 88 year old female whose daughter is is calling [facility] to report that her mother, Regla has a couple of spots on her face, saw a wrecking crane engine operator 2 years ago for the same thin but a friend of hers told it looked like skin cancer. Josselyn reports Regla being upset thatshe may have skin cancer and is anxious, Josselyn requesting a Dermatology referral and hoping to get appt for the same day she is at [facility] next Saturday 01/20 for a post [...] Derm referral for 01/20 Will route to [facility] schedulers to assist with scheduling appt. Treatment/Plan: Level of call: Non-Acute Recommended treatment plan: Clinical advice given over the phone Referral(s) with current selections available: Other; Dermatology Call back instructions provided to patient. KATY Lynn Quality Control Supervisor [facility] documented in this encounter Plan of Treatment Upcoming Encounters Date Type Department Care Team (Late st Contact Info) Description 01/21/2024 9:10 AM EDT Office Visit Ophthalmology, [facility] 132 [place] [address] Romel Mcclelland, DO [address] [place] [address] 03/01/2024 11:20 AM EDT Office Visit Ophthalmology, [facility] 132 [facility] [place] [address] Romel Mcclelland, DO [address] [place] [address] 03/04/2024 5:30 PM EDT [facility] 132 [facility] [place] [address] Destiny Schultz RN 132 [place] [address] 03/30/2024 3:40 PM EDT Office Visit Family Medicine [address] [place] [phone] Verónica Benavides MD [address] [place] [address] [place] [address] 04/21/2024 10:30 AM EDT Telemedicine Urology, [facility] 132 [facility] [place] [address] Chandler Pnea MD 27 [facility] [address] [place] [address] 11/24/2024 1:40 PM EDT Office Visit Dermatology [address] [place] [address] Sheryl Pena PA-C [address] [place] [address] [place] [address] Scheduled Referrals Name Type Priority Associated Diagnoses [...] Additional history exists CKD PHOS USE SMARTSET 81691 02/08/202401/23, 08/07/2021, 11/09/2019, Additional history exists TSH 03/25/2024 03/25/2023, 07/0 10/2022, 10/28/2022, Additional history exists Influenza Vaccine (FLU shot) (Season Ended) 2024 06/20/2022, 06/20/2022, 06/29/2021, Additional history exists CKD HGB USE SMARTSET 00966 05/26/202405/26, 05/26/2023, 04/07/2023, Additional history exists Pneumococcal [...] Documents on File Type Date Recorded Patient Dent Remover Expl anation Advance Directives and Living Will 08/10/2021 ADVANCE DIRECTIVE / LIVING WILL LIVING WILL Healthcare Agents on File Name Relationship Healthcare [facility]oss[facility] Adult Child Health Care Power of Attor nathalie Care Teams Scrap Drop Operator Relationship Specialty Start Date End Date Verónica Benavides MD [address] [place] [address] [place] [phone] PCP - General Family Medicine 09/16/14 documented as of this encounter
--- OUTSIDE RECORDS SUMMARY | 2024-04-24 11:20 | External Medical Summary | Summary of Care ---
Author Name Unknown Organization [facility] Address [address] [place] [address] Phone [phone] Care Team Providers Care Data Warehousing Specialist Name Role Phone Verónica Benavides MD Primary Care Provide r Encounter Details Date Type Department Care Team (Late st Contact Info) Description 12/30/2023 Result Scan Unspecified Department Hermann Heredia, DO [address] [place] [address] <No scans attached> Allergies Active Allergy Reactions Criticality Noted Date Comments Adhesive Tape Medium 01/30/2022 Ibuprofen Hives 01/13/2012 Aspirin Hives,Rash 09/15/2000 Sulfamethoxazole-Trimeth oprim Nausea/vomiting,Othe r (Please comment) 10/27/2020 Dizziness Ciprofloxacin Hcl 06/16/2019 Hoarse, dizzy,disoriented Morphine 09/21/2021 Blacked out Penicillins Hives,Rash 09/15/2000 Prednisone 12/30/2017 Weakness/memory changes/blurred vision documented as of this encounter (statuses as of 12/30/2023) Medications Medication Sig Dispensed Refills Start Date [...] in the morning. 0 08/08/2021 Active Nystatin 974177 UNIT/GM External Powder (Nystop)Indications: Lydia rash of [...] XL)Indications:Non-i schemic cardiomyopathy (HCC),Coronary artery disease involving [place]al[place] coronary artery of [place]alton heart without angina pectoris,HTN, goal below 140/90 [...] Tablet 3 07/08/2023 Active OneTouch Delica Plus [id number] :Type 2 diabetes mellitus with hemoglobin A1c goal of less than 8.0% ([facility]) Test up to two times daily or as directed by [facility] pharmacist 200 Each 3 07/11/2023 Active Estrogens [...] If no improvement on day 3, contact [facility] for possible home visit 1 Each 0 11/28/2023 Active Meclizine HCl 25 MG Oral Tablet (Antivert)Indication s:Vertigo Take 1 tablet by mouth 3 times a day as needed for dizziness 30 Tablet 5 11/28/2023 Active Ondansetron HCl 4 MG Oral Tablet Take 1 Tablet by mouth every 6 hours as needed for Nausea. 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 Last Assessment & Plan: [facility] Triage Call: Reviewed last C&S - [...] Continue synthroid Coronary artery disease invo lving [place]al[place] coronary artery of nondalton heart without angina pectoris 07/03/2012 Overview: 60% [...] as of this encounter (statuses as of 12/30/2023) Resolved Problems Problem Noted Date Diagnosed Date [...] as of this encounter (statuses as of 12/30/2023) Immunizations Name Administration Dates Next Due COVID-19 mRNA, LNP-s, No Pre serve, 2-Dose Series ([facility]) 08/29/2021,10/23/2020,10/02/2020 COVID-19, MRNA-LNP, 23-24, P F, 30 MCG/0.3 mL, 12 YRS AND ABOVE, IM (Poolami-ComirnatLestis [employer]) 08/04/2023 Covid-19, Mrna, Lnp-s, Pf, B ivalent, [...] 01/07/2024 10:00 AM EDT Office Visit Ophthalmology, [facility] [address] [place] [address] Romel Mcclelland, DO 16 [place] [address] 01/08/2024 5:30 PM EDT [facility] Visit [facility] [address] [place] [address] Destiny Schultz RN 132 [place] [address] 01/21/2024 9:10 AM EDT Office Visit Ophthalmology, [facility] [address] [place] [address] Romel Mcclelland, DO [address] [place] [address] 03/01/2024 11:20 AM EDT Office Visit Ophthalmology, [facility] [address] [place] [address] Romel Mcclelland, DO [address] [place] [address] 03/30/2024 3:40 PM EDT Office Visit Family Medicine [address] [place] [phone] Verónica Benavides MD [address] [place] [address] [place] [address] 04/21/2024 10:30 AM EDT Telemedicine Urology, [facility] 132 [facility] [place] [address] Chandler Pena MD 27 [facility] [address] [place] [address] 11/24/2024 1:40 PM EDT Office Visit Dermatology [address] [place] [address] Sheryl Pena PA-C [address] [place] [address] [place] [address] Health Maintenance Due Date Last Done Comments [...] Additional history exists CKD PHOS USE SMARTSET 08102 02/08/2024 06/1 01/2023, 08/07/2021, 11/09/2019, Additional history exists TSH 03/25/2024 03/25/2023, 07/0 10/2022, 10/28/2022, Additional history exists Influenza Vaccine (FLU shot) (Season Ended) 2024 06/20/2022, 06/20/2022, 06/29/2021, Additional history exists CKD HGB USE SMARTSET 98242 05/26/202405/26, 05/26/2023, 04/07/2023, Additional history exists Pneumococcal [...] Date/Time Associated Diagnosis Comments CARDIOLOGY SCANNED RESULT 12/30/2023 documented in this encounter Results * CARDIOLOGY SCANNED RESULT (12/30/2023) 12/30/2023 Hermann CAMPOS documented in this encounter Additional Health Concerns 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/2023 documented as of this encounter Advance Directives Documents on File Type Date Recorded Patient Loss Prevention Consultant Expl anation Advance Directives and Living Will 08/10/2021 ADVANCE DIRECTIVE / LIVING WILL LIVING WILL Healthcare Agents on File Name Relationship Healthcare Agent Relationshi p Communication Josselyn Judd Adult Child Health Care Power of Attor nathalie Care Teams Data Warehousing Specialist Relationship Specialty Start Date End Date Verónica Benavides MD [address] [place] [address] [place] [address] PCP - General Family Medicine 09/16/14 documented as of this encounter
--- OUTSIDE RECORDS SUMMARY | 2024-04-24 11:20 | External Medical Summary | Summary of Care ---
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); Recurrent UTI; Drug-induced constipation Allergies Active Allergy Reactions Criticality Noted Date Comments Adhesive Tape Medium 01/30/2022 Ibuprofen Hives 01/13/2012 Aspirin Hives,Rash 09/15/2000 Sulfamethoxazole-Trimeth oprim Nausea/vomiting,Othe r (Please comment) 10/27/2020 Dizziness Ciprofloxacin Hcl 06/16/2019 Hoarse, dizzy,disoriented Morphine 09/21/2021 Blacked out Penicillins Hives,Rash 09/15/2000 Prednisone 12/30/2017 Weakness/memory changes/blurred vision documented as of this encounter (statuses as of 12/22/2023) Medications Medication Sig Dispensed Refills Start Date [...] in the morning. 0 08/08/2021 Active Nystatin 440293 UNIT/GM External Powder (Nystop)Indications: Lydia rash of [...] XL)Indications:Non-i schemic cardiomyopathy (HCC),Coronary artery disease involving [place] coronary artery of [place] heart without angina pectoris,HTN, goal below [...] Tablet 3 07/08/2023 Active OneTouch Delica Plus [id number] :Type 2 diabetes mellitus with hemoglobin A1c goal of less than 8.0% ([facility]) Test up to two times daily or as directed by [facility] pharmacist 200 Each 3 07/11/2023 Active Estrogens [...] as of this encounter (statuses as of 12/22/2023) Active Problems Problem Noted Date Diagnosed Date [...] Continue synthroid Coronary artery disease invo lving [place] coronary artery of [place] heart without angina pectoris 07/03/2012 Overview: [...] as of this encounter (statuses as of 12/22/2023) Resolved Problems Problem Noted Date Diagnosed Date [...] as of this encounter (statuses as of 12/22/2023) Immunizations Name Administration Dates Next Due COVID-19 mRNA, LNP-s, No Pre serve, 2-Dose Series (K[employer] Prime) 08/29/2021,10/23/2020,10/02/2020 COVID-19, MRNA-LNP, 23-24, P F, 30 MCG/0.3 mL, 12 YRS AND ABOVE, IM ([facility]) 08/04/2023 Covid-19, Mrna, Lnp-s, Pf, B ivalent, 30 Mcg, IM, 12 yrs and above (Kappa Prime) 08/02/2022 Pneumococcal Conjugate Vacc, 13 Valent (Prevnar) [...] Care Team (Late st Contact Info) Description 12/23/2023 10:00 AM EDT Home Visit ising at [facility] 132 [facility] [place] [address] Destiny Schultz, RN 132 [facility] [place] [address] 12/24/2023 7:10 AM EDT Laboratory Lab Mobile Phlebotomy [facility] [address] [place] [address] [facility] Draw [address] [place] [address] 01/07/2024 10:00 AM EDT Office Visit Ophthalmology, [facility] 132 [facility] [place] [address] Romel Mcclelland T, DO 16 [facility] [place] [address] 01/08/2024 5:30 PM EDT [facility] Visit [facility], [facility] 132 [place] [address] Destiny Schultz RN 132 [facility] [place] [address] 01/21/2024 9:10 AM EDT Office Visit Ophthalmology, [address] [place] [address] Romel Mcclelland, DO 16 [place] [address] 03/01/2024 11:20 AM EDT Office Visit Ophthalmology, [address] [place] [address] Romel Mcclelland, 16 [place] [address] 03/30/2024 3:40 PM EDT Office Visit Family Medicine [address] [place] [phone] Verónica Benavides MD [address] [place] [address] [place] [address] 04/21/2024 10:30 AM EDT Telemedicine Urology, [address] [place] [address] Chandler Pena MD [address] [place] [address] [place] [address] 11/24/2024 1:40 PM EDT Office Visit Dermatology [address] [place] [address] Sheryl Pena PA-C [address] [place] [address] [place] [address] Health Maintenance Due Date Last Done Comments [...] Additional history exists CKD PHOS USE SMARTSET 16196 02/08/202401/23, 08/07/2021, 11/09/2019, Additional history exists TSH 03/25/2024 03/25/2023, 0710/2022, 10/28/2022, Additional history exists Influenza Vaccine (FLU shot) (Season Ended) 2024 06/20/2022, 06/20/2022, 06/29/2021, Additional history exists CKD HGB USE SMARTSET 36386 05/26/202405/26, 05/26/2023, 04/07/2023, Additional history exists Pneumococcal [...] as of this encounter Visit Diagnoses Diagnosis Hospital discharge follow-up- Primary Other follow-up examination 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) Recurrent UTI Urinary tract infection, site not specified Drug-induced constipation Other constipation documented in this encounter Additional Health Concerns 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/2023 documented as of this encounter Advance Directives Documents on File Type Date Recorded Patient Post Acute Care Nurse Practitioner Expl anation Advance Directives and Living Will 08/10/2021 ADVANCE DIRECTIVE / LIVING WILL LIVING WILL Healthcare Agents on File Name Relationship Healthcare Agent [facility] Communication Josselyn Judd Adult Child Health Care Power of Attor nathalie Care Teams Upper Leather Cutter Relationship Specialty Start Date End Date Verónica Benavides MD [address] [place] [address] [place] [address] PCP - General Family Medicine 09/16/14 documented as of this encounter
--- OUTSIDE RECORDS SUMMARY | 2024-04-24 11:20 | External Medical Summary | Summary of Care ---
Author Name Unknown Organization [facility] Address [address] [place] [address] Phone [phone] Care Team Providers Care Gear Technician Name Role Phone Verónica Benavides MD Primary Care Provide r Reason for Visit * Reason Onset Date Comments Fax 11/26/2023 Encounter Details Date Type Department Care Team (Late st Contact Info) Description 11/26/2023 Telephone Family [address] [phone] Verónica Benavides MD [address] [place] [address] [place] [phone] Fax Allergies Active Allergy Reactions Criticality Noted Date Comments Adhesive Tape Medium 01/30/2022 Ibuprofen Hives 01/13/2012 Aspirin Hives,Rash 09/15/2000 Sulfamethoxazole-Trimeth oprim Nausea/vomiting,Othe r (Please comment) 10/27/2020 Dizziness Ciprofloxacin Hcl 06/16/2019 Hoarse, dizzy,disoriented Morphine 09/21/2021 Blacked out Penicillins Hives,Rash 09/15/2000 Prednisone 12/30/2017 Weakness/memory changes/blurred vision documented as of this encounter (statuses as of 01/02/2024) Medications Medication Sig Dispensed Refills Start Date [...] in the morning. 0 08/08/2021 Active Nystatin 256415 UNIT/GM External Powder (Nystop)Indications :Lydia rash of [...] XL)Indications:Non- ischemic cardiomyopathy (HCC),Coronary artery disease involving [place] [...] Tablet 3 07/08/2023 Active OneTouch Delica Plus [id number] s:Type 2 diabetes mellitus with hemoglobin A1c goal of less than 8.0% ([facility]) Test up to two times daily or as directed by [facility] pharmacist 200 Each 3 07/11/2023 Active [...] needed for Nausea. 30 Tablet 0 05/04/2023 Discontinu ed(Refill) documented as of this encounter (statuses as of 01/02/2024) Active Problems Problem Noted Date Diagnosed Date [...] as of this encounter (statuses as of 01/02/2024) Resolved Problems Problem Noted Date Diagnosed Date [...] as of this encounter (statuses as of 01/02/2024) Immunizations Name Administration Dates Next Due COVID-19 mRNA, LNP-s, No Pre serve, 2-Dose Series ([employer]) 08/29/2021,10/23/2020,10/02/2020 COVID-19, MRNA-LNP, 23-24, P F, 30 [...] Miscellaneous Notes * Telephone Encounter - Alona Rolle OSA - 12/31/2023 5:32 PM EDT Liz called from [employer] stating that the pt has [employer] insurance so the order for the blue incontinence pads needs upload to the online [employer] portal. * Telephone Encounter - Alona Mayer [...] for blue incontinence pads. The pt uses [employer]. Ph.[phone] Fax. [phone] documented in this encounter Plan of Treatment Upcoming Encounters Date Type Department Care Team (Late st Contact Info) Description 01/07/2024 10:00 AM EDT Office Visit Ophthalmology, [address] [place] [address] Romel Mcclelland, DO 16 [place] [address] 01/08/2024 5:30 PM EDT [facility] Visit [facility], [facility] 132 [facility] [place] [address] Destiny Schultz RN 132 [place] [address] 01/21/2024 9:10 AM EDT Office Visit Ophthalmology, [address] [place] [address] Romel Mcclelland, 16 [place] [address] 03/01/2024 11:20 AM EDT Office Visit Ophthalmology, [address] [place] [address] Romel Mcclelland, DO [address] [place] [address] 03/30/2024 3:40 PM EDT Office Visit Family Medicine [address] [place] [phone] Verónica Benavides MD [address] [place] [address] [place] [address] 04/21/2024 10:30 AM EDT Telemedicine Urology, [address] [place] [address] Chandler Pena MD 27 [facility] [address] [place] [address] 11/24/2024 1:40 PM EDT Office Visit Dermatology [address] [place] [address] Sheryl Pena PA-C [address] [place] [address] [place] [address] Health Maintenance Due Date Last Done Comments [...] Additional history exists CKD PHOS USE SMARTSET 86573 02/08/202401/23, 08/07/2021, 11/09/2019, Additional history exists TSH 03/25/2024 03/25/2023, 0710/2022, 10/28/2022, Additional history exists Influenza Vaccine (FLU shot) (Season Ended) 2024 06/20/2022, 06/20/2022, 06/29/2021, Additional history exists CKD HGB USE SMARTSET 12510 05/26/202405/26, 05/26/2023, 04/07/2023, Additional history exists Pneumococcal [...] Documents on File Type Date Recorded Patient Receiving Barn Custodian Expl anation Advance Directives and Living Will 08/10/2021 ADVANCE DIRECTIVE / LIVING WILL LIVING WILL Healthcare Agents on File Name Relationship Healthcare Agent Relationshi p Communication Josselyn Judd Adult Child Health Care Power of Attor nathalie Care Teams Gear Technician Relationship Specialty Start Date End Date Verónica Benavides MD [address] [place] [address] [place] [address] PCP - General Family Medicine 09/16/14 documented as of this encounter
--- OUTSIDE RECORDS SUMMARY | 2024-04-24 11:20 | External Medical Summary | Summary of Care ---
Author Name Unknown Organization [facility] Address [address] [place] [address] Phone [phone] Care Team Providers Care Regional Director Name Role Phone Verónica Benavides MD Primary Care Provide r Reason for Visit * Reason Onset Date Comments Fax 11/26/2023 Encounter Details Date Type Department Care Team (Late st Contact Info) Description 11/26/2023 Telephone Family [address] [address] Verónica Benavides MD [address] [place] [address] [place] [phone] Fax Allergies Active Allergy Reactions Criticality Noted [...] in the morning. 0 08/08/2021 Active Nystatin 482314 UNIT/GM External Powder (Nystop)Indications :Lydia rash of [...] XL)Indications:Non- ischemic cardiomyopathy (HCC),Coronary artery disease involving [place] coronary artery of [place] heart without angina pectoris,HTN, goal below 140/90 [...] Tablet 3 07/08/2023 Active OneTouch Delica Plus [id number] s:Type 2 diabetes mellitus with hemoglobin A1c goal of less than 8.0% ([facility]) Test up to two times daily or as directed by [facility] pharmacist 200 Each 3 07/11/2023 Active Estrogens [...] Continue synthroid Coronary artery disease invo lving [place] coronary artery of [place] heart without angina pectoris 07/03/2012 Overview: 60% [...] mRNA, LNP-s, No Pre serve, 2-Dose Series ([employer]) 08/29/2021,10/23/2020,10/02/2020 COVID-19, MRNA-LNP, 23-24, P F, 30 [...] 12/31/2023 5:32 PM EDT Liz called from [employer] stating that the pt has [employer] insurance so the order for the blue incontinence pads needs upload to the online [employer] portal. * Telephone Encounter - Alona Mayer [...] for blue incontinence pads. The pt uses [employer]. Ph.[phone] Fax. [phone] documented in this encounter Plan of Treatment Upcoming Encounters Date Type Department Care Team (Late st Contact Info) Description 01/07/2024 10:00 AM EDT Office Visit Ophthalmology, [address] [place] [address] Romel Mcclelland, DO 16 [place] [address] 01/08/2024 5:30 PM EDT Home Visit isinger at Home, [facility] 132 [facility] [place] [address] Destiny Schultz RN 132 [place] [address] 01/21/2024 9:10 AM EDT Office Visit Ophthalmology, [address] [place] [address] Romel Mcclelland, 16 [facility] [place] [address] 03/01/2024 11:20 AM EDT Office Visit Ophthalmology, [address] [place] [address] Romel Mcclelland, DO 16 [place] [address] 03/30/2024 3:40 PM EDT Office Visit Family Medicine [address] [place] [phone] Verónica Benavides MD [address] [place] [address] [place] [address] 04/21/2024 10:30 AM EDT Telemedicine Urology, [address] [place] [address] Chandler Pena MD 27 [facility] [place] 270 [place] [address] 11/24/2024 1:40 PM EDT Office Visit Dermatology [address] [place] [address] Sheryl Pena PA-C [address] [place] [address] [place] [address] Health Maintenance Due Date Last Done Comments [...] Additional history exists CKD PHOS USE SMARTSET 61473 02/08/202401/23, 08/07/2021, 11/09/2019, Additional history exists TSH 03/25/2024 03/25/2023, 0710/2022, 10/28/2022, Additional history exists Influenza Vaccine (FLU shot) (Season Ended) 2024 06/20/2022, 06/20/2022, 06/29/2021, Additional history exists CKD HGB USE SMARTSET 18751 05/26/202405/26, 05/26/2023, 04/07/2023, Additional history exists Pneumococcal [...] Documents on File Type Date Recorded Patient Silk Brusher Expl anation Advance Directives and Living Will 08/10/2021 ADVANCE DIRECTIVE / LIVING WILL LIVING WILL Healthcare Agents on File Name Relationship Healthcare Agent Relationshi p Communication Josselyn Judd Adult Child Health Care Power of Attor nathalie Care Teams Regional Director Relationship Specialty Start Date End Date Verónica Benavides MD [address] [place] [address] [place] [address] PCP - General Family Medicine 09/16/14 documented as of this encounter
--- OUTSIDE RECORDS SUMMARY | 2024-04-24 11:20 | External Medical Summary | Summary of Care ---
Author Name Unknown Organization [facility] Address [address] [place] [address] Phone [phone] Care Team Providers Care Media Marketing Specialist Name Role Phone Verónica Benavides MD Primary Care Provide r Reason for Visit * Reason Onset Date Comments Advice 12/18/2023 Encounter Details Date Type Department Care Team (Late st Contact Info) Description 12/18/2023 Telephone Family Medicine [address] [address] Verónica Benavides MD [address] [place] [address] [place] [address] Advice Allergies Active Allergy Reactions Criticality Noted Date Comments Adhesive Tape Medium 01/30/2022 Ibuprofen Hives 01/13/2012 Aspirin Hives,Rash 09/15/2000 Sulfamethoxazole-Trimeth oprim Nausea/vomiting,Othe r (Please comment) 10/27/2020 Dizziness Ciprofloxacin Hcl 06/16/2019 Hoarse, dizzy,disoriented Morphine 09/21/2021 Blacked out Penicillins Hives,Rash 09/15/2000 Prednisone 12/30/2017 Weakness/memory changes/blurred vision documented as of this encounter (statuses as of 12/19/2023) Medications Medication Sig Dispensed Refills Start Date [...] in the morning. 0 08/08/2021 Active Nystatin 179708 UNIT/GM External Powder (Nystop)Indications: Lydia rash of [...] Tablet 3 07/08/2023 Active OneTouch Delica Plus [id number] :Type 2 diabetes mellitus with hemoglobin A1c goal of less than 8.0% ([facility]) Test up to two times daily or as directed by [facility] pharmacist 200 Each 3 07/11/2023 Active Estrogens [...] as of this encounter (statuses as of 12/19/2023) Active Problems Problem Noted Date Diagnosed Date [...] as of this encounter (statuses as of 12/19/2023) Resolved Problems Problem Noted Date Diagnosed Date [...] as of this encounter (statuses as of 12/19/2023) Immunizations Name Administration Dates Next Due COVID-19 mRNA, LNP-s, No Pre serve, 2-Dose Series ([employer]) 08/29/2021,10/23/2020,10/02/2020 COVID-19, MRNA-LNP, 23-24, P F, 30 MCG/0.3 mL, 12 YRS AND ABOVE, IM ([employer] [employer]) 08/04/2023 Covid-19, Mrna, Lnp-s, Pf, B ivalent, 30 Mcg, IM, 12 yrs and above ([employer]) 08/02/2022 Pneumococcal Conjugate Vacc, 13 Valent (Prevnar) [...] encounter Miscellaneous Notes * Telephone Encounter - Amy Eagle LPN - 12/19/2023 1:33 PM EDT Switched to video, Josselyn notified. * Telephone Encounter - Kusum Jones CRNP - 12/19/2023 1:30 PM EDT It would be fine to switch to a video. Appointment was changed and notification should have been sent to Yary's email. Please notify pt/daughter of this change. * Telephone Encounter - Dane Chambers OSA - 12/18/2023 10:43 AM EDT Pt's daughter calling regarding pt's 12/21 appt. They would like to make it a video visit, please. Pt's daughter states [facility] visited today and checked her vitals. Trinh, her [facility] nurse, is coming on Friday to check her vitals as well. Please advise pt's daughter that this is okay by calling [phone]. documented in this encounter Plan of Treatment Upcoming Encounters Date Type Department Care Team (Late st Contact Info) Description 12/22/2023 1:20 PM EDT Telemedicine [address] [place] [phone] Kusum Jones CRNP [address] [place] [address] [place] [address] 12/23/2023 10:00 AM EDT Home Visit ising at [facility] 132 [facility] [place] [address] Destiny Schultz, POPPY 132 [facility] [place] [address] 01/07/2024 10:00 AM EDT Office Visit Ophthalmology, [facility] 132 [facility] [place] [address] Romel Mcclelland, DO [address] [place] [address] 01/08/2024 5:30 PM EDT Home Visit ising at [facility] 132 [place] [address] Destiny Schultz, POPPY [facility] [place] [address] 01/21/2024 9:10 AM EDT Office Visit Ophthalmology, [facility] [place] [address] Romel Mcclelland, DO 16 [place] [address] 03/01/2024 11:20 AM EDT Office Visit Ophthalmology, [facility] 132 [facility] [place] [address] Romel Mcclelland, DO 16 [facility] [place] [address] 03/30/2024 3:40 PM EDT Office Visit Family Medicine [address] [place] [phone] Verónica Benavides MD [address] [place] [address] [place] [address] 04/21/2024 10:30 AM EDT Telemedicine Urology, [facility] 132 [facility] [place] [address] Chandler Pena MD 27 [facility] 270 [place] [address] 11/24/2024 1:40 PM EDT Office Visit Dermatology [address] [place] [address] Sheryl Pena PA-C [address] [place] [address] [place] [address] Health Maintenance Due Date Last Done Comments [...] Additional history exists CKD PHOS USE SMARTSET 06321 02/08/202401/23, 08/07/2021, 11/09/2019, Additional history exists TSH 03/25/2024 03/25/2023, 07/0 10/2022, 10/28/2022, Additional history exists Influenza Vaccine (FLU shot) (Season Ended) 2024 06/20/2022, 06/20/2022, 06/29/2021, Additional history exists CKD HGB USE SMARTSET 61667 05/26/202405/26, 05/26/2023, 04/07/2023, Additional history exists Pneumococcal [...] Care Power of Attor nathalie Care Teams Media Marketing Specialist Relationship Specialty Start Date End Date Verónica Benavides MD [address] [place] [address] [place] [address] PCP - General Family Medicine 09/16/14 documented as of this encounter
--- OUTSIDE RECORDS SUMMARY | 2024-04-24 11:20 | External Medical Summary | Summary of Care ---
Author Name Unknown Organization [facility] Address [address] [place] [address] Phone [phone] Care Team Providers Care Him Coder Name Role Phone Verónica Benavides MD Primary Care Provide r Reason for Visit * Reason Onset Date Comments Fax 11/26/2023 Encounter Details Date Type Department Care Team (Late st Contact Info) Description 11/26/2023 Telephone Family [address] [address] Verónica Benavides MD [address] [place] [address] [place] [phone] Fax Allergies Active Allergy Reactions Criticality Noted Date Comments Adhesive Tape Medium 01/30/2022 Ibuprofen Hives 01/13/2012 Aspirin Hives,Rash 09/15/2000 Sulfamethoxazole-Trimeth oprim Nausea/vomiting,Othe r (Please comment) 10/27/2020 Dizziness Ciprofloxacin Hcl 06/16/2019 Hoarse, dizzy,disoriented Morphine 09/21/2021 Blacked out Penicillins Hives,Rash 09/15/2000 Prednisone 12/30/2017 Weakness/memory changes/blurred vision documented as of this encounter (statuses as of 01/05/2024) Medications Medication Sig Dispensed Refills Start Date [...] in the morning. 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 Last Assessment & Plan: [facility] Triage Call: Reviewed last C&S [...] Continue synthroid Coronary artery disease invo lving [place] coronary artery of [place] heart without angina pectoris 07/03/2012 Overview: 60% [...] as of this encounter (statuses as of 01/05/2024) Resolved Problems Problem Noted Date Diagnosed Date [...] as of this encounter (statuses as of 01/05/2024) Immunizations Name Administration Dates Next Due COVID-19 mRNA, LNP-s, No Pre serve, 2-Dose Series ([employer]) 08/29/2021,10/23/2020,10/02/2020 COVID-19, MRNA-LNP, 23-24, P F, 30 [...] 12/31/2023 5:32 PM EDT Liz called from [employer] stating that the pt has [employer] insurance so the order for the blue incontinence pads needs upload to the online [employer] portal. * Telephone Encounter - Alona Mayer [...] for blue incontinence pads. The pt uses [employer]. Ph.[phone] Fax. [phone] documented in this encounter Plan of Treatment Upcoming Encounters Date Type Department Care Team (Late st Contact Info) Description 01/07/2024 10:00 AM EDT Office Visit Ophthalmology, [address] [place] [address] Romel Mcclelland, DO 16 [place] [address] 01/08/2024 5:30 PM EDT Home Visit isinger at Home, [facility] 132 [facility] [place] [address] Destiny Schultz RN 132 [facility] [place] [address] 01/21/2024 9:10 AM EDT Office Visit Ophthalmology, [address] [place] [address] Romel Mcclelland, 16 [facility] [place] [address] 03/01/2024 11:20 AM EDT Office Visit Ophthalmology, [address] [place] [address] Romel Mcclelland, DO 16 [place] [address] 03/30/2024 3:40 PM EDT Office Visit Family Medicine [address] [place] [phone] Verónica Benavides MD [address] [place] [address] [place] [address] 04/21/2024 10:30 AM EDT Telemedicine Urology, [address] [place] [address] Chandler Pena MD [address] [facility] [place] 270 [place] [address] 11/24/2024 1:40 PM EDT Office Visit Dermatology [address] [place] [address] Sheryl Pena PA-C [address] [place] [address] [place] [address] Health Maintenance Due Date Last Done Comments [...] Additional history exists CKD PHOS USE SMARTSET 67924 02/08/202401/23, 08/07/2021, 11/09/2019, Additional history exists TSH 03/25/2024 03/25/2023, 0710/2022, 10/28/2022, Additional history exists Influenza Vaccine (FLU shot) (Season Ended) 2024 06/20/2022, 06/20/2022, 06/29/2021, Additional history exists CKD HGB USE SMARTSET 79526 05/26/202405/26, 05/26/2023, 04/07/2023, Additional history exists Pneumococcal [...] on File Type Date Recorded 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
--- OUTSIDE RECORDS SUMMARY | 2024-04-24 11:20 | External Medical Summary ---
Author Name Unknown Address Unknown Organization K0G[facility] [address] [place] [address] Laboratory Report Ordering Provider Test Date Status SARAH GAO 12/26/2023 08:56:00 Final Observation Date Value Abnormality Reference (Units ) Status BUN 12/26/2023 08:56:00 20 6-20 (mg/dL) Final Creatinine 12/26/2023 08:56:00 0.9 0.5-1.0 (mg/dL) Final Glomerular filtration rate/1.73 sq M.predicted [Volume Rate/Area] in Serum, Plasma or Blood by Creatinine-based formula (CKD-EPI) 12/26/2023 08:56:00 65 >=60 (mL/min) Final eGFR is calculated based on the CKD-EPI 2020 equation Sodium 12/26/2023 08:56:00 139 135-146 (m mol/L) Final Potassium 12/26/2023 08:56:00 4.0 3.5-5.1 (m mol/L) Final Cl 12/26/2023 08:56:00 101 98-107 (mm ol/L) Final CO2 12/26/2023 08:56:00 28 22-32 (mmo l/L) Final Anion gap 12/26/2023 08:56:00 10 7-15 (mmol /L) Final Glucose 12/26/2023 08:56:00 118 70-120 (mg /dL) Final Calcium 12/26/2023 08:56:00 8.8 8.4-10.2 ( mg/dL) Final Performing Location [facility] [address] [place] [address]
--- OUTSIDE RECORDS SUMMARY | 2024-04-24 11:20 | External Medical Summary | Summary of Care ---
Author Name Unknown Organization [facility] Address [address] [place] [address] Phone [phone] Care Team Providers Care Service Observer Chief Name Role Phone Verónica Benavides MD Primary Care Provide r Reason for Visit * Reason Onset Date Comments Fax 11/26/2023 Encounter Details Date Type Department Care Team (Late st Contact Info) Description 11/26/2023 Telephone Family [address] [address] Verónica Benavides MD [address] [place] [address] [place] [phone] Fax Allergies Active Allergy Reactions Criticality Noted Date Comments Adhesive Tape Medium 01/30/2022 Ibuprofen Hives 01/13/2012 Aspirin Hives,Rash 09/15/2000 Sulfamethoxazole-Trimeth oprim Nausea/vomiting,Othe r (Please comment) 10/27/2020 Dizziness Ciprofloxacin Hcl 06/16/2019 Hoarse, dizzy,disoriented Morphine 09/21/2021 Blacked out Penicillins Hives,Rash 09/15/2000 Prednisone 12/30/2017 Weakness/memory changes/blurred vision documented as of this encounter (statuses as of 12/31/2023) Medications Medication Sig Dispensed Refills Start Date [...] in the morning. 0 08/08/2021 Active Nystatin [id number] UNIT/GM External Powder (Nystop)Indications :Lydia rash of [...] XL)Indications:Non- ischemic cardiomyopathy (HCC),Coronary artery disease involving [place] coronary artery of [place] heart without angina pectoris,HTN, goal below 140/90 [...] Tablet 3 07/08/2023 Active OneTouch Delica Plus [id number] s:Type 2 diabetes mellitus with hemoglobin A1c goal of less than 8.0% ([facility]) Test up to two times daily or as directed by [facility] pharmacist 200 Each 3 07/11/2023 Active [...] as of this encounter (statuses as of 12/31/2023) Active Problems Problem Noted Date Diagnosed Date [...] Continue synthroid Coronary artery disease invo lving [place] coronary artery of [place] heart without angina pectoris 07/03/2012 Overview: 60% [...] as of this encounter (statuses as of 12/31/2023) Resolved Problems Problem Noted Date Diagnosed Date [...] 10/13/2009 04/30/2018 ACTIVE CASE MANAGEMENT 07/26/200906/11 Overview: Marecla Dixon RN Arthritis, rheumatoid 06/30/20092011 Overview: Seronegative [...] as of this encounter (statuses as of 12/31/2023) Immunizations Name Administration Dates Next Due COVID-19 mRNA, LNP-s, No Pre serve, 2-Dose Series ([employer]) 08/29/2021,10/23/2020,10/02/2020 COVID-19, MRNA-LNP, 23-24, P F, 30 [...] 12/31/2023 5:32 PM EDT Liz called from [employer] stating that the pt has [employer] insurance so the order for the blue incontinence pads needs upload to the online [employer] portal. * Telephone Encounter - Alona Mayer [...] for blue incontinence pads. The pt uses [employer]. Ph.[phone] Fax. [phone] documented in this encounter Plan of Treatment Upcoming Encounters Date Type Department Care Team (Late st Contact Info) Description 01/07/2024 10:00 AM EDT Office Visit Ophthalmology, [address] [place] [address] Romel Mcclelland, DO 16 [place] [address] 01/08/2024 5:30 PM EDT Home Visit isinger at Home, [facility] 132 [facility] [place] [address] Destiny Schultz RN 132 [place] [address] 01/21/2024 9:10 AM EDT Office Visit Ophthalmology, [address] [place] [address] Romel Mcclelland, 16 [facility] [place] [address] 03/01/2024 11:20 AM EDT Office Visit Ophthalmology, [address] [place] [address] Romel Mcclelland, DO 16 [place] [address] 03/30/2024 3:40 PM EDT Office Visit Family Medicine [address] [place] [phone] Verónica Benavides MD [address] [place] [address] [place] [address] 04/21/2024 10:30 AM EDT Telemedicine Urology, [address] [place] [address] Chandler Pena MD 27 [facility] [place] [address] [place] [address] 11/24/2024 1:40 PM EDT Office Visit Dermatology [address] [place] [address] Sheryl Pena PA-C [address] [place] [address] [place] [address] Health Maintenance Due Date Last Done Comments [...] Additional history exists CKD PHOS USE SMARTSET 39691 02/08/202401/23, 08/07/2021, 11/09/2019, Additional history exists TSH 03/25/2024 03/25/2023, 0710/2022, 10/28/2022, Additional history exists Influenza Vaccine (FLU shot) (Season Ended) 2024 06/20/2022, 06/20/2022, 06/29/2021, Additional history exists CKD HGB USE SMARTSET 97661 05/26/202405/26, 05/26/2023, 04/07/2023, Additional history exists Pneumococcal [...] Documents on File Type Date Recorded 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
--- OUTSIDE RECORDS SUMMARY | 2024-04-24 11:20 | External Medical Summary | Summary of Care ---
Author Name Unknown Organization [facility] Address [address] [place] [address] Phone [phone] Care Team Providers Care Business Mail Entry Clerk Name Role Phone Verónica Benavides MD Primary Care Provide r Reason for Visit * Reason Onset Date Comments Fax 11/26/2023 Encounter Details Date Type Department Care Team (Late st Contact Info) Description 11/26/2023 Telephone Family [address] [address] Verónica Benavides MD [address] [place] [address] [place] [phone] Fax Allergies Active Allergy Reactions Criticality Noted Date Comments Adhesive Tape Medium 01/30/2022 Ibuprofen Hives 01/13/2012 Aspirin Hives,Rash 09/15/2000 Sulfamethoxazole-Trimeth oprim Nausea/vomiting,Othe r (Please comment) 10/27/2020 Dizziness Ciprofloxacin Hcl 06/16/2019 Hoarse, dizzy,disoriented Morphine 09/21/2021 Blacked out Penicillins Hives,Rash 09/15/2000 Prednisone 12/30/2017 Weakness/memory changes/blurred vision documented as of this encounter (statuses as of 01/06/2024) Medications Medication Sig Dispensed Refills Start Date [...] in the morning. 0 08/08/2021 Active Nystatin 034884 UNIT/GM External Powder (Nystop)Indications :Lydia rash of [...] XL)Indications:Non- ischemic cardiomyopathy (HCC),Coronary artery disease involving [place] coronary [...] Tablet 3 07/08/2023 Active OneTouch Delica Plus [id number] s:Type 2 diabetes mellitus with hemoglobin A1c [...] as of this encounter (statuses as of 01/06/2024) Active Problems Problem Noted Date Diagnosed Date [...] carrier 06/29/2021 Last Assessment & Plan: [facility] Triage Call: Reviewed last C&S - [...] as of this encounter (statuses as of 01/06/2024) Resolved Problems Problem Noted Date Diagnosed Date [...] as of this encounter (statuses as of 01/06/2024) Immunizations Name Administration Dates Next Due COVID-19 mRNA, LNP-s, No Pre serve, 2-Dose Series ([employer]) 08/29/2021,10/23/2020,10/02/2020 COVID-19, MRNA-LNP, 23-24, P F, 30 [...] 01/06/2024 7:05 AM EDT Order sent to [facility] * Telephone Encounter - Alona Rolle OSA - 12/31/2023 5:32 PM EDT Liz called from [employer] stating that the pt has [employer] insurance so the order for the blue incontinence pads needs upload to the online [employer] portal. * Telephone Encounter - Alona Mayer [...] for blue incontinence pads. The pt uses [employer]. Ph.[phone] Fax. [phone] documented in this encounter Plan of Treatment Upcoming Encounters Date Type Department Care Team (Late st Contact Info) Description 01/07/2024 10:00 AM EDT Office Visit Ophthalmology, [facility] [address] [place] [address] Romel Mcclelland, DO [address] [place] [address] 01/08/2024 5:30 PM EDT Home Visit [facility] [address] [place] [address] Destiny Schultz RN [address] [place] [address] 01/21/2024 9:10 AM EDT Office Visit Ophthalmology, [facility] [address] [place] [address] Romel Mcclelland, [address] [place] [address] 03/01/2024 11:20 AM EDT Office Visit Ophthalmology, [facility] [address] [place] [address] Romel Mcclelland, [address] [place] [address] 03/30/2024 3:40 PM EDT Office Visit Family Medicine [address] [address] Verónica Benavides MD [address] [place] [address] [place] [address] 04/21/2024 10:30 AM EDT Telemedicine Urology, [facility] [address] [place] [address] Chandler Pena MD [address] [facility] [place] [address] [place] [address] 11/24/2024 1:40 PM EDT Office Visit Dermatology [address] [place] [address] Sheryl Pena PA-C [address] [place] [address] [place] [address] Health Maintenance Due Date Last Done Comments [...] Additional history exists CKD PHOS USE SMARTSET 30542 02/08/202401/23, 08/07/2021, 11/09/2019, Additional history exists TSH 03/25/2024 03/25/2023, 07/0 10/2022, 10/28/2022, Additional history exists Influenza Vaccine (FLU shot) (Season Ended) 2024 06/20/2022, 06/20/2022, 06/29/2021, Additional history exists CKD HGB USE SMARTSET 84670 05/26/202405/26, 05/26/2023, 04/07/2023, Additional history exists Pneumococcal [...] Documents on File Type Date Recorded 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
--- OUTSIDE RECORDS SUMMARY | 2024-04-24 11:20 | External Medical Summary | Summary of Care ---
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 [facility] Comments Is Patient homebound? Yes All sections of this form must be filled out completely. Forms with missing or illegible information will be returned for completion. This form should not be modified in any way. Forms that have been modified will be returned. This form may not be submitted by a home health agency. It must be complete and submitted by the ordering provider. One full business day lead time is required and service will be scheduled based on the next service day for the [facility] Home Phlebotomy does not service every geographical location on a daily basis. Contact [facility] Client Services at to find out service days for a specific location. Medical Laboratory Home phlebotomy Patient Name: Regla Castano : 1935 Sex: female Address [address] [facility] [address] Provider: None? Verónica Benavides MD? Diagnosis: I50.20,I42.9 Heart failure, systolic, due to idiopathic cardiomyopathy (HCC) (primary encounter diagnosis) Tests Requested BMP - once starting December 19, 2023 Reason for Visit * Reason Comments [facility]: Maintenance Encounter Details Date Type Department Care Team (Late st Contact Info) Description 12/19/2023 10:00 AM EDT [facility] Visit [facility], [facility] [address] [place] [address] Destiny Schultz, RN [address] [place] [address] Heart failure, systolic, due to idiopathic cardiomyopathy (HCC)* Allergies Active Allergy Reactions Criticality Noted Date [...] in the morning. 0 08/08/2021 Active Nystatin 631732 UNIT/GM External Powder (Nystop)Indications: Lydia rash of [...] XL)Indications:Non-i schemic cardiomyopathy (HCC),Coronary artery disease involving [place] coronary [...] Tablet 3 07/08/2023 Active OneTouch Delica Plus [id number] :Type 2 diabetes mellitus with hemoglobin A1c [...] mRNA, LNP-s, No Pre serve, 2-Dose Series ([employer]) 08/29/2021,10/23/2020,10/02/2020 COVID-19, MRNA-LNP, 23-24, P F, 30 MCG/0.3 mL, 12 YRS AND ABOVE, IM (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 Discharged home 12/17/23 with [facility] and 24 hour caregivers. Torsemide increased to 60mg BID- daughter concerned with kidney function since taking current Torsemide dose. Will place lab order/ mobile lab. Continue Metoprolol 25 mg daily Blood sugar 118 Weight- 235.6- dry weight 233 Reports doing well since being home. VS wnl Lungs clear bilaterally Sob with exertion Chronic BLE lymphedema Voiding without difficulty Bowels wnl- per report Appetite good Taking fluids well- 4 bottles of water daily Mobile lab order with [facility] in 2 weeks. Problems/Symptoms: Review of Systems Constitutional: Negative. HENT: Negative. Respiratory: Positive for shortness of breath. Cardiovascular: Positive for leg swelling. Gastrointestinal: Negative. Genitourinary: Negative. Musculoskeletal: Positive for gait problem. Skin: Negative. Hematological: Negative. Psychiatric/Behavioral: Negative. Physical Exam: BP 118/62 (BP Site: Right Arm, BP Position: Sitting, BP Cuff Size: Regular) | Pulse 64 | Temp 36.5 C (97.7 F) (Tympanic) | Resp 18 | SpO2 91% Pain 0 Physical Exam Constitutional: Appearance: Normal [...] Behavior: Behavior normal. [facility]-10 Completed this Visit: Yes. [facility]-10: Reason Completed: Status post ED visit/hospital admission [facility]-10 Interventions: Fall education provided, reviewed/provided Fall brochure Treatment/Plan: Weigh daily Low na diet Compression pumps daily Blood sugar daily Continue medications as prescribed Keep all upcoming MD appointments Fall precautions- walker 24 hour caregivers RN CM follow up in 4 weeks. Home Interventions Provided: Reinforced current Plan of Care, including self-management and medication regimen Patient Needs to Remember: Call [facility] with any medical concerns/ red flags Referrals Needed: N/a Follow Up: Is there cellular connectivity/connectivity in the home? Yes Does the patient have internet in the home? Yes Patient encouraged to call the intake phone number for all urgent but not emergent issues. Scheduled to follow up with patient in 4 weeks. Destiny Byers RN 12/19/2023 10:46 AM documented in this encounter Plan of Treatment Upcoming Encounters Date Type Department Care Team (Late st Contact Info) Description 12/22/2023 1:20 PM EDT Telemedicine Family Medicine [address] [place] [phone] Kusum Jones [address] [place] [address] 12/23/2023 10:00 AM EDT [facility], [facility] [address] [facility] [place] [address] Destiny Schultz, RN [address] [place] [address] 01/07/2024 10:00 AM EDT Office Visit Ophthalmology, [facility] [address] [facility] [place] [address] Romel Mcclelland, DO [address] [place] [address] 01/08/2024 5:30 PM EDT Home Visit [facility] [place], [facility] 132 [facility] [place] [address] Destiny Schultz, POPPY [address] [place] [address] 01/21/2024 9:10 AM EDT Office Visit Ophthalmology, [facility] [address] Romel Mcclelland, DO [address] [place] [address] 03/01/2024 11:20 AM EDT Office Visit Ophthalmology, [facility] 132 [facility], [place] [address] Romel Mcclelland, DO [address] [place] [address] 03/30/2024 3:40 PM EDT Office Visit Family Medicine [address] [place] [phone] Verónica Benavides MD [address] [place] [address] [place] [address] 04/21/2024 10:30 AM EDT Telemedicine Urology, [facility] [address] [facility] [place] [address] Chandler Pena MD 27 [facility] [place] [address] [place] [address] 11/24/2024 1:40 PM EDT Office Visit Dermatology [address] [place] [address] Sheryl Pena PA-C [address] [place] [address] [place] [address] Scheduled Orders Name Type Priority Associated Diagnoses Orde r Schedule BASIC METABOLIC PANEL Lab Routine Heart failure, systolic, due to idiopathic cardiomyopathy (HCC) Expected: 12/19/2023 (Approximate), Expires: 12/18/2024 Scheduled Referrals Name Type Priority Associated Diagnoses Orde r Schedule HOME PHLEBOTOMY REFERRAL OP Referral Within 30 days (routine) Heart failure, systolic, due to idiopathic cardiomyopathy (HCC) Ordered: 12/19/2023 Health Maintenance Due Date Last Done Comments [...] Additional history exists CKD PHOS USE SMARTSET 93431 02/08/2024 06/01/2023, 08/07/2021, 11/09/2019, Additional history exists TSH 03/25/2024 03/25/2023, 07/0 10/2022, 10/28/2022, Additional history exists Influenza Vaccine (FLU shot) (Season Ended) 2024 06/20/2022, 06/20/2022, 06/29/2021, Additional history exists CKD HGB USE SMARTSET 74272 05/26/202405/26, 05/26/2023, 04/07/2023, Additional history exists Pneumococcal [...] cardiomyopathy (HCC)- Primary Unspecified systolic heart failure documented in this encounter Additional Health Concerns 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/2023 documented as of this encounter Advance Directives Documents on File Type Date 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
--- OUTSIDE RECORDS SUMMARY | 2024-04-24 11:21 | External Medical Summary | Summary of Care ---
Author Name Unknown Organization [facility] Address [address] [place] [address] Phone [phone] Care Team Providers Care Vaccine Specialist Name Role Phone Verónica Benavides MD Primary Care Provide r Reason for Visit * Reason Onset Date Comments Appointment 12/16/2023 Encounter Details Date Type Department Care Team (Late st Contact Info) Description 12/16/2023 Telephone [facility] [place] [address] [place], [place] [phone] Services, Scheduling [address] [place] [address] Appointment Allergies Active Allergy Reactions Criticality Noted Date Comments Adhesive Tape Medium 01/30/2022 Ibuprofen Hives 01/13/2012 Aspirin Hives,Rash 09/15/2000 Sulfamethoxazole-Trimeth oprim Nausea/vomiting,Othe r (Please comment) 10/27/2020 Dizziness Ciprofloxacin Hcl 06/16/2019 Hoarse, dizzy,disoriented Morphine 09/21/2021 Blacked out Penicillins Hives,Rash 09/15/2000 Prednisone 12/30/2017 Weakness/memory changes/blurred vision documented as of this encounter (statuses as of 12/16/2023) Medications Medication Sig Dispensed Refills Start Date [...] in the morning. 0 08/08/2021 Active Nystatin 630046 UNIT/GM External Powder (Nystop)Indications: Lydia rash of [...] schemic cardiomyopathy (HCC),Coronary artery disease involving [place] coronary artery of [place] heart without angina pectoris,HTN, goal below 140/90 [...] Tablet 3 07/08/2023 Active OneTouch Delica Plus [id number] :Type 2 diabetes mellitus with hemoglobin A1c goal of less than 8.0% ([facility]) Test up to two times daily or as directed by [facility] pharmacist 200 Each 3 07/11/2023 Active [...] If no improvement on day 3, contact [facility] for possible home visit 1 [...] as of this encounter (statuses as of 12/16/2023) Active Problems Problem Noted Date Diagnosed Date [...] 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 Last Assessment & Plan: [facility] Triage Call: Reviewed last C&S [...] synthroid Coronary artery disease invo lving [place] coronary artery of [place] heart without angina pectoris 07/03/2012 Overview: 60% [...] as of this encounter (statuses as of 12/16/2023) Resolved Problems Problem Noted Date Diagnosed Date [...] as of this encounter (statuses as of 12/16/2023) Immunizations Name Administration Dates Next Due COVID-19 mRNA, LNP-s, No Pre serve, 2-Dose Series ([employer]) 08/29/2021,10/23/2020,10/02/2020 COVID-19, MRNA-LNP, 23-24, P F, 30 MCG/0.3 mL, 12 YRS AND ABOVE, IM ([facility] 08/04/2023 Covid-19, Mrna, Lnp-s, Pf, B ivalent, 30 Mcg, IM, 12 yrs and above ([employer]) 08/02/2022 Pneumococcal Conjugate Vacc, 13 Valent (Prevnar) [...] encounter Miscellaneous Notes * Telephone Encounter - Alexa Lipscomb OSA - 12/16/2023 4:37 PM EDT Per request to schedule JERICHO visit for pt. Found telemed visit for 12/16 with Noam at 1 PM. Pts daughter, Josselyn advised that would not work for pt because she will not be home until after 5 PM. Advised Josselyn that we have an appt for HV scheduled on the and that in the meantime we could schedule a f/u call with the nurse this week until the HV on the . Pts daughter advised that would work for them. F/u JERICHO call scheduled for 12/17. HV with nurse scheduled for 12/22. documented in this encounter Plan of Treatment Upcoming Encounters Date Type Department Care Team (Late st Contact Info) Description 12/18/2023 12:30 PM EDT Scheduled Telephone [facility] [place], [facility] [address] [place] [address] Coordinator, [facility] [address] [place] [address] 12/23/2023 10:00 AM EDT Home Visit [facility] [place], [facility] [address] [place] [address] Destiny Schultz RN [address] [place] [address] 01/07/2024 10:00 AM EDT Office Visit Ophthalmology, [address] [place] [address] Romel Mcclelland, DO [address] [place] [address] 01/21/2024 9:10 AM EDT Office Visit Ophthalmology, [address] [place] [address] Romel Mcclelland, DO [address] [place] [address] 03/01/2024 11:20 AM EDT Office Visit Ophthalmology, [address] [place] [address] Romel Mcclelland, DO [address] [place] [address] 03/30/2024 3:40 PM EDT Office Visit Family Medicine [address] [place] [address] Verónica Benavides MD [address] [place] [address] [place] [address] 04/21/2024 10:30 AM EDT Telemedicine Urology, [address] [place] [address] Chandler Pena MD [address] [place] [address] [place] [address] 11/24/2024 1:40 PM EDT Office Visit Dermatology [address] [place] [address] Sheryl Pena PA-C [address] [place] [address] [place] [address] Health Maintenance Due Date Last Done Comments [...] Additional history exists CKD PHOS USE SMARTSET 19064 02/08/202401/23, 08/07/2021, 11/09/2019, Additional history exists TSH 03/25/2024 03/25/2023, 0710/2022, 10/28/2022, Additional history exists Influenza Vaccine (FLU shot) (Season Ended) 2024 06/20/2022, 06/20/2022, 06/29/2021, Additional history exists CKD HGB USE SMARTSET 91974 05/26/202405/26, 05/26/2023, 04/07/2023, Additional history exists Pneumococcal [...] Documents on File Type Date Recorded 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
--- OUTSIDE RECORDS SUMMARY | 2024-04-24 11:21 | External Medical Summary | Summary of Care ---
Author Name Unknown Organization [facility] Address [address] [place] [address] Phone [phone] Care Team Providers Care Boiler Control Technician Name Role Phone Verónica Benavides MD Primary Care Provide r Encounter Details Date Type Department Care Team (Late st Contact Info) Description 12/18/2023 Population Health External Data Unspecified Department Allergies Active Allergy Reactions Criticality Noted Date Comments Adhesive Tape Medium 01/30/2022 Ibuprofen Hives 01/13/2012 Aspirin Hives,Rash 09/15/2000 Sulfamethoxazole-Trimeth oprim Nausea/vomiting,Othe r (Please comment) 10/27/2020 Dizziness Ciprofloxacin Hcl 06/16/2019 Hoarse, dizzy,disoriented Morphine 09/21/2021 Blacked out Penicillins Hives,Rash 09/15/2000 Prednisone 12/30/2017 Weakness/memory changes/blurred vision documented as of this encounter (statuses as of 12/18/2023) Medications Medication Sig Dispensed Refills Start Date [...] in the morning. 0 08/08/2021 Active Nystatin 641792 UNIT/GM External Powder (Nystop)Indications: Lydia rash of [...] XL)Indications:Non-i schemic cardiomyopathy (HCC),Coronary artery disease involving twenty[place]nine [place] coronary artery of twenty[place]nine [place] heart without angina pectoris,HTN, goal below 140/90 [...] goal of less than 8.0% ([facility]) TEST UP TO FOUR TIMES [...] Tablet 3 07/08/2023 Active OneTouch Delica Plus [id number] :Type 2 diabetes mellitus with hemoglobin A1c goal of less than 8.0% ([facility]) Test up to two times daily or as directed by [facility] pharmacist 200 Each 3 07/11/2023 Active Estrogens [...] as of this encounter (statuses as of 12/18/2023) Active Problems Problem Noted Date Diagnosed Date [...] Continue synthroid Coronary artery disease invo lving [place]-nine [place] coronary artery of twenty-nine [place] heart without angina pectoris 07/03/2012 Overview: 60% [...] as of this encounter (statuses as of 12/18/2023) Resolved Problems Problem Noted Date Diagnosed Date [...] as of this encounter (statuses as of 12/18/2023) Immunizations Name Administration Dates Next Due COVID-19 mRNA, LNP-s, No Pre serve, 2-Dose Series ([employer]) 08/29/2021,10/23/2020,10/02/2020 COVID-19, MRNA-LNP, 23-24, P F, 30 MCG/0.3 mL, 12 YRS AND ABOVE, IM (Quitt.ch-Comirnat) 08/04/2023 Covid-19, Mrna, Lnp-s, Pf, B ivalent, [...] 12:30 PM EDT Scheduled Telephone [facility] [place], [facility] [address] [place] [address] Coordinator, [facility] [address] [place] [address] 12/19/2023 10:00 AM EDT Home Visit [facility] [place], [facility] [address] [place] [address] Destiny Schultz, RN [address] [place] [address] 12/22/2023 1:20 PM EDT Office Visit [address] Medicine [address] [phone] Kusum Jones [address] [place] [address] 12/23/2023 10:00 AM EDT Home Visit [facility] [place], [facility] [address] [place] [address] Destiny Schultz, RN [address] [place] [address] 01/07/2024 10:00 AM EDT Office Visit Ophthalmology, [facility] [address] [place] [address] Romel Mcclelland, DO [address] [place] [address] 01/21/2024 9:10 AM EDT Office Visit Ophthalmology, [address] [address] Romel Mcclelland, DO [address] [place] [address] 03/01/2024 11:20 AM EDT Office Visit Ophthalmology, [address] [place] [address] Romel Mcclelland, DO [address] [place] [address] 03/30/2024 3:40 PM EDT Office Visit Family Medicine [address] [place] [address] Verónica Benavides MD [address] [place] [address] [place] [address] 04/21/2024 10:30 AM EDT Telemedicine Urology, [address] [address] Chandler Pena MD [address] [place] [address] [place] [address] 11/24/2024 1:40 PM EDT Office Visit Dermatology [address] [place] [address] Sheryl Pena PA-C [address] [place] [address] [place] [address] Health Maintenance Due Date Last Done Comments Zoster Vaccines (1 of 2) 1985 DXA Scan 04/02/2020 04/02/2017, 2 11/2012, 11/05/2007 Depression Screening 05/24/2020 05/24/2019 Diabetic Foot Exam 11/08/2020 11/09/2019, 0 09/01/2018, 08/28/2017, Additional history exists HbA1c 08/13/2023 02/11/2023, 10/23, 01/11/2022, Additional history exists DTaP,Tdap,and Td Vaccines (2 - Td or Tdap) 11/16/2023 11/15/2013, 03/29/2008, 03/29/2008 Diabetic Eye Exam 12/22/2023 12/21/2022, , 03/10/2021, Additional history exists Albumin/Creatinine Ratio 02/08/2024 023, 01/18/2022, 12/23/2017, Additional history exists CKD PHOS USE SMARTSET 57413 02/08/202401/23, 08/07/2021, 11/09/2019, Additional history exists TSH 03/25/2024 03/25/2023, 07/0 10/2022, 10/28/2022, Additional history exists Influenza Vaccine (FLU shot) (Season Ended) 2024 06/20/2022, 06/20/2022, 06/29/2021, Additional history exists CKD HGB USE SMARTSET 12191 05/26/202405/26, 05/26/2023, 04/07/2023, Additional history exists Pneumococcal [...] Documents on File Type Date Recorded 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
--- OUTSIDE RECORDS SUMMARY | 2024-04-24 11:21 | External Medical Summary | Summary of Care ---
Author Name Unknown Organization [facility] Address [address] [place] [address] Phone [phone] Care Team Providers Care Telehealth Nurse Name Role Phone Verónica Benavides MD Primary Care Provide r Reason for Visit * Reason Onset Date Comments [facility]: Maintenance 12/10/2023 Encounter Details Date Type Department Care Team (Late st Contact Info) Description 12/10/2023 Telephone [facility], [facility] [address] [place] [address] [facility], Nurse [facility] [address] [place] [address] [facility]: Maintenance Allergies Active Allergy Reactions Criticality Noted Date Comments Adhesive Tape Medium 01/30/2022 Ibuprofen Hives 01/13/2012 Aspirin Hives,Rash 09/15/2000 Sulfamethoxazole-Trimeth oprim Nausea/vomiting,Othe r (Please comment) 10/27/2020 Dizziness Ciprofloxacin Hcl 06/16/2019 Hoarse, dizzy,disoriented Morphine 09/21/2021 Blacked out Penicillins Hives,Rash 09/15/2000 Prednisone 12/30/2017 Weakness/memory changes/blurred vision documented as of this encounter (statuses as of 12/10/2023) Medications Medication Sig Dispensed Refills Start Date [...] in the morning. 0 08/08/2021 Active Nystatin 421963 UNIT/GM External Powder (Nystop)Indications: Lydia rash of [...] XL)Indications:Non-i schemic cardiomyopathy (HCC),Coronary artery disease involving [place] coronary artery of [place] heart without angina pectoris,HTN, goal below 140/90 [...] Tablet 3 07/08/2023 Active OneTouch Delica Plus [id number] :Type 2 diabetes mellitus with hemoglobin A1c goal of less than 8.0% ([facility]) Test up to two times daily or as directed by [facility] pharmacist 200 Each 3 07/11/2023 Active Estrogens [...] If no improvement on day 3, contact [facility] for possible home visit 1 [...] as of this encounter (statuses as of 12/10/2023) Active Problems Problem Noted Date Diagnosed Date [...] Continue synthroid Coronary artery disease invo lving [place] coronary artery of [place] heart without angina pectoris 07/03/2012 Overview: 60% [...] as of this encounter (statuses as of 12/10/2023) Resolved Problems Problem Noted Date Diagnosed Date [...] as of this encounter (statuses as of 12/10/2023) Immunizations Name Administration Dates Next Due COVID-19 mRNA, LNP-s, No Pre serve, 2-Dose Series ([employer]) 08/29/2021,10/23/2020,10/02/2020 COVID-19, MRNA-LNP, 23-24, P F, 30 MCG/0.3 mL, 12 YRS AND ABOVE, IM ([facility]) 08/04/2023 Covid-19, Mrna, Lnp-s, Pf, B ivalent, [...] encounter Miscellaneous Notes * Telephone Encounter - Tonia Mera LPN - 12/10/2023 9:27 AM EDT Added to hospital list to follow d/c * Telephone Encounter - Angie Lin RN - 12/10/2023 9:00 AM EDT Patients daughter Josselyn calling to make [facility] aware that patient was admitted to [facility] last night and will be receiving IV abx for UTI over the next several days. Daughter is hoping patient will not need rehab and will come home post discharge. She will update [facility] on hospital discharge/plan. Routing to care team/SUPERVISING NURSE pool to follow for discharge Angie Lin RN, BSN [facility] spare fixer Navigator documented in this encounter Plan of Treatment Upcoming Encounters Date Type Department Care Team (Late st Contact Info) Description 12/10/2023 12:30 PM EDT Scheduled Telephone [facility], [facility] [address] [place] [address] Coordinator, [facility] Ian [facility] [address] [place] [address] 12/17/2023 10:00 AM EDT Office Visit Ophthalmology, [facility] 132 [facility] [place] [address] Romel Mcclelland, DO [address] [place], [place] [address] [address] 12/23/2023 10:00 AM EDT Home Visit [facility], [facility] [address] [place] [address] Destiny Schultz RN 132 [facility] [place] [address] 03/30/2024 3:40 PM EDT Office Visit Family Medicine [address] [place] [phone] Verónica Benavides MD [address] [place] [address] [place] [address] 04/21/2024 10:30 AM EDT Telemedicine Urology, [facility] 132 [facility] [place] [address] Chandler Pena MD [address] [place] [address] [place] [address] 11/24/2024 1:40 PM EDT Office Visit Dermatology [address] [place] [address] Sheryl Pena PA-C [address] [place] [address] [place] [address] Health Maintenance Due Date Last Done Comments [...] Additional history exists CKD PHOS USE SMARTSET 29331 02/08/202401/23, 08/07/2021, 11/09/2019, Additional history exists TSH 03/25/2024 03/25/2023, 07/0 10/2022, 10/28/2022, Additional history exists Influenza Vaccine (FLU shot) (Season Ended) 2024 06/20/2022, 06/20/2022, 06/29/2021, Additional history exists CKD HGB USE SMARTSET 05390 05/26/202405/26, 05/26/2023, 04/07/2023, Additional history exists Pneumococcal [...] on File Type Date Recorded Patient Sales Department Clerk Expl anation Advance Directives and Living Will 08/10/2021 ADVANCE DIRECTIVE / LIVING WILL LIVING WILL Healthcare Agents on File Name Relationship Healthcare Agent [facility] Communication Josselyn Judd [facility] Health Care Power of Attor nathalie Care Teams Telehealth Nurse Relationship Specialty Start Date End Date Verónica Benavides MD [address] [place] [address] [place] [address] PCP - General Family Medicine 09/16/14 documented as of this encounter
--- OUTSIDE RECORDS SUMMARY | 2024-04-24 11:21 | External Medical Summary | Summary of Care ---
Author Name Unknown Organization [facility] Address [address] [place] [address] Phone [phone] Care Team Providers Care Call Center Representative Name Role Phone Verónica Benavides MD Primary Care Provide r Reason for Visit * Reason Onset Date Comments [facility]: Maintenance 12/10/2023 Encounter Details Date Type Department Care Team (Late st Contact Info) Description 12/10/2023 Telephone [facility], [facility] [address] [place] [address] [facility], Nurse [facility] [address] [place] [address] [facility]: Maintenance Allergies Active Allergy [...] in the morning. 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 Last Assessment & Plan: [facility] Triage Call: Reviewed last C&S - [...] Continue synthroid Coronary artery disease invo lving [place] coronary artery of [place] heart without angina pectoris 07/03/2012 Overview: 60% [...] mRNA, LNP-s, No Pre serve, 2-Dose Series ([employer]) 08/29/2021,10/23/2020,10/02/2020 COVID-19, MRNA-LNP, 23-24, P F, 30 MCG/0.3 mL, 12 YRS AND ABOVE, IM (Well[facility]-Comircount includes the [facility]) 08/04/2023 Covid-19, Mrna, Lnp-s, Pf, B ivalent, 30 Mcg, IM, 12 yrs and above ([employer]) 08/02/2022 Pneumococcal Conjugate Vacc, 13 Valent [...] encounter Miscellaneous Notes * Telephone Encounter - Angie Lin RN - 12/10/2023 9:00 AM EDT Patients daughter Josselyn calling to make [facility] aware that patient was admitted to [facility] last night and will be receiving IV abx for UTI over the next several days. Daughter is hoping patient will not need rehab and will come home post discharge. She will update [facility] on hospital discharge/plan. Routing to care team/[facility] to follow for discharge Angie Lin RN, BSN [facility] jewelry jobber Navigator documented in this encounter Plan of Treatment Upcoming Encounters Date Type Department Care Team (Late st Contact Info) Description 12/10/2023 12:30 PM EDT Scheduled Telephone [facility], [facility] [address] [place] [address] Coordinator, [facility] [address] [place] [address] 12/17/2023 10:00 AM EDT Office Visit Ophthalmology, [facility] 132 [facility] [place] [address] Romel Mcclelland, DO [address] [place] [address] 12/23/2023 10:00 AM EDT Home Visit [facility], [facility] 132 [facility] [place] [address] Destiny Schultz, POPPY 132 [facility] [place] [address] 03/30/2024 3:40 PM EDT Office Visit Family Medicine [address] [place] [phone] Verónica Benavides MD [address] [place] [address] [place] [address] 04/21/2024 10:30 AM EDT Telemedicine Urology, [facility] 132 [facility] [place] [address] Chandler Pena MD [address] [address] [place] [address] 11/24/2024 1:40 PM EDT Office Visit Dermatology [address] [place] [address] Sheryl Pnea PA-C [address] [place] [address] [place] [address] Health Maintenance Due Date Last Done Comments [...] Additional history exists CKD PHOS USE SMARTSET 51071 02/08/202401/23, 08/07/2021, 11/09/2019, Additional history exists TSH 03/25/2024 03/25/2023, 07/0 10/2022, 10/28/2022, Additional history exists Influenza Vaccine (FLU shot) (Season Ended) 2024 06/20/2022, 06/20/2022, 06/29/2021, Additional history exists CKD HGB USE SMARTSET 32652 05/26/202405/26, 05/26/2023, 04/07/2023, Additional history exists Pneumococcal [...] Documents on File Type Date Recorded Patient Blind Eyeletter Expl anation Advance Directives and Living Will 08/10/2021 ADVANCE DIRECTIVE / LIVING WILL LIVING WILL Healthcare Agents on File Name Relationship Healthcare Agent Relationshi p Communication Josselyn Judd Adult Child Health Care Power of Attor nathalie Care Teams Call Center Representative Relationship Specialty Start Date End Date Verónica Benavides MD [address] [place] [address] [place] [address] PCP - General Family Medicine 09/16/14 documented as of this encounter
--- OUTSIDE RECORDS SUMMARY | 2024-04-24 11:21 | External Medical Summary | Summary of Care ---
Author Name Unknown Organization [facility] Address [address] [place] [address] Phone [phone] Care Team Providers Care Printing Equipment Mechanic Name Role Phone Verónica Benavides MD Primary Care Provide r Reason for Visit * Reason Onset Date Comments [facility]: Maintenance 12/16/2023 Encounter Details Date Type Department Care Team (Late st Contact Info) Description 12/16/2023 Telephone [facility], [facility] [address] [place] [address] [facility], Nurse [facility] [address] [place] [address] [facility]: Maintenance Allergies Active Allergy [...] in the morning. 0 08/08/2021 Active Nystatin [id number] UNIT/GM External Powder (Nystop)Indications: Lydia rash of [...] XL)Indications:Non-i schemic cardiomyopathy (HCC),Coronary artery disease involving [place] coronary artery of [place] heart without angina pectoris,HTN, goal below 140/90 [...] Tablet 3 07/08/2023 Active OneTouch Delica Plus [id number] :Type 2 diabetes mellitus with hemoglobin A1c goal of less than 8.0% ([facility]) Test up to two times daily or as directed by [facility] pharmacist 200 Each 3 [...] If no improvement on day 3, contact [facility] for possible home visit 1 Each [...] Continue synthroid Coronary artery disease invo lving [place] coronary artery of [place] heart without angina pectoris 07/03/2012 Overview: 60% [...] mRNA, LNP-s, No Pre serve, 2-Dose Series ([employer]) 08/29/2021,10/23/2020,10/02/2020 COVID-19, MRNA-LNP, 23-24, P F, 30 MCG/0.3 mL, 12 YRS AND ABOVE, IM (ReSnap-Comirnaty) 08/04/2023 Covid-19, Mrna, Lnp-s, Pf, B ivalent, [...] Telephone Encounter - Janiya Cárdenas RN - 12/16/2023 4:11 PM EDT Call received from the pt's daughter Josselyn. Daughter calling to make the [facility] team to make them aware that the pt will be discharged from [facility] tomorrow in the late afternoon. TT message sent to the [facility] manager relocation to assist with setting up the pt's JERICHO home visits. documented in this encounter Plan of Treatment Upcoming Encounters Date Type Department Care Team (Late st Contact Info) Description 12/17/2023 1:00 PM EDT Telemedicine [facility] [place], [facility] [address] [place] [address] Brandt Santacruz PA-C [address] [place] [address] Monserrat Lloyd, Community Health Lock Up Worker [address] [place] [address] [place] [address] 12/23/2023 10:00 AM EDT Home Visit [facility], [facility] [address] [place] [address] Destiny Schultz RN 132 [facility] [place] [address] 01/07/2024 10:00 AM EDT Office Visit Ophthalmology, [facility] 132 [place] [address] Romel Mcclelland, DO 16 [place] [address] 01/21/2024 9:10 AM EDT Office Visit Ophthalmology, [facility] 132 [place] [address] Roeml Mcclelland, DO 16 [place] [address] 03/01/2024 11:20 AM EDT Office Visit Ophthalmology, [address] [address] Romel Mcclelland, DO 16 [place] [address] 03/30/2024 3:40 PM EDT Office Visit Family Medicine [address] [place] [phone] Verónica Benavides MD [address] [place] [address] [place] [address] 04/21/2024 10:30 AM EDT Telemedicine Urology, [facility] 132 [place] [address] Chandler Pena MD [address] [place] [address] [place] [address] 11/24/2024 1:40 PM EDT Office Visit Dermatology [address] [place] [address] Sheryl Pena PA-C [address] [place] [address] [place] [address] Health Maintenance Due Date Last Done Comments [...] Additional history exists CKD PHOS USE SMARTSET 85035 02/08/202401/23, 08/07/2021, 11/09/2019, Additional history exists TSH 03/25/2024 03/25/2023, 07/0 10/2022, 10/28/2022, Additional history exists Influenza Vaccine (FLU shot) (Season Ended) 2024 06/20/2022, 06/20/2022, 06/29/2021, Additional history exists CKD HGB USE SMARTSET 49335 05/26/202405/26, 05/26/2023, 04/07/2023, Additional history exists Pneumococcal [...] Documents on File Type Date Recorded 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
--- OUTSIDE RECORDS SUMMARY | 2024-04-24 11:21 | External Medical Summary | Summary of Care ---
Author Name Unknown Organization [facility] Address [address] [place] [address] Phone [phone] Care Team Providers Care Diet Supervisor Name Role Phone Verónica Benavides MD Primary Care Provide r Reason for Visit * Reason Onset Date Comments Acute Problem Follow Up 12/18/2023 Encounter Details Date Type Department Care Team (Late st Contact Info) Description 12/18/2023 12:30 PM EDT Scheduled Telephone [facility], [facility] [address] [facility] [place] [address] Coordinator, [facility] [address] [facility] [place] [address] Allergies Active Allergy Reactions Criticality Noted Date [...] in the morning. 0 08/08/2021 Active Nystatin 707973 UNIT/GM External Powder (Nystop)Indications: Lydia rash of [...] XL)Indications:Non-i schemic cardiomyopathy (HCC),Coronary artery disease involving jena coronary artery of jena heart without angina pectoris,HTN, goal below 140/90 [...] Tablet 3 07/08/2023 Active OneTouch Delica Plus [id number] :Type 2 diabetes mellitus with hemoglobin A1c goal of less than 8.0% ([facility]) Test up to two times daily or as directed by [facility] pharmacist 200 Each 3 07/11/2023 [...] Continue synthroid Coronary artery disease invo lving jena coronary artery of jena heart without angina pectoris 07/03/2012 Overview: 60% [...] mRNA, LNP-s, No Pre serve, 2-Dose Series ([facility]) 08/29/2021,10/23/2020,10/02/2020 COVID-19, MRNA-LNP, 23-24, P F, 30 MCG/0.3 mL, 12 YRS AND ABOVE, IM ([employer]) 08/04/2023 Covid-19, Mrna, Lnp-s, Pf, B ivalent, [...] encounter Miscellaneous Notes * Telephone Encounter - Aida Sharif RN - 12/18/2023 12:01 PM EDT [facility] at Home Telephonic Nurse Follow-Up Call [facility] Subprogram: Primary Care at Home Follow Up Call Type: Routine follow up call / Status Check Acute issue requiring follow-up call: Other: Hospital d/c previous day Objective: 11/11/2023 2:14 PM 10/31/2023 2:19 PM [...] DME needs identified Medications: Current DTP: Other: Is currently taking extra Torsemide in afternoon per hospital d/c instructions.Current weight is 239 pounds. Subjective: Condition Status: Improvement in symptoms but not at baseline Current Concerns: Patient was discharged home from [facility] 12/17/23. Patient is ambulating well at home and is being followed by [facility] Physical [facility]. Daughter lissy is weak but is doing well. Disposition: RNCM visit scheduled Future Visits Scheduled: Future Appointments-next 60 days Date/Time Provider Specialty Dept Phone 12/18/2023 12:30 PM Coordinator, Lise Lepe [facility] [phone] 12/19/2023 10:00 AM Destiny Schultz RN [facility] [phone] 12/22/2023 1:20 PM (Arrive by 1:05 PM) Kusum Jones CRNP Family Medicine [phone] 12/23/2023 10:00 AM Destiny Schultz RN [facility] [phone] 01/07/2024 10:00 AM Romel Mcclelland, DO Ophthalmology [phone] 01/21/2024 9:10 AM Romel Mcclelland, DO Ophthalmology [phone] 03/01/2024 11:20 AM Romel Mcclelland, DO Ophthalmology [phone] 03/30/2024 3:40 PM (Arrive by 3:25 PM) Verónica Benavides MD Family Medicine [phone] 04/21/2024 10:30 AM Chandler Pena MD Urology [phone] 11/24/2024 1:40 PM (Arrive by 1:25 PM) Sheryl Pena PA-Antonio Dermatology [phone] Aida Sharif RN documented in this encounter Plan of Treatment Upcoming Encounters Date Type Department Care Team (Late st Contact Info) Description 12/19/2023 10:00 AM EDT Home Visit [facility], [facility] [address] [place] [address] Destiny Schultz RN [address] [facility] [place] [address] 12/22/2023 1:20 PM EDT Office Visit Family [address] [phone] Kusum Jones CRNP [address] [place] [address] [place] [address] 12/23/2023 10:00 AM EDT Home Visit [facility] [place], [facility] 132 [place] [address] Destiny Schultz, POPPY [address] [place] [address] 01/07/2024 10:00 AM EDT Office Visit Ophthalmology, [facility] 132 [place] [address] Romel Mcclelland, DO [address] [place] [address] 01/21/2024 9:10 AM EDT Office Visit Ophthalmology, [address] [address] Romel Mcclelland, DO [address] [place] [address] 03/01/2024 11:20 AM EDT Office Visit Ophthalmology, [address] [place] [address] Romel Mcclelland, DO [address] [place] [address] 03/30/2024 3:40 PM EDT Office Visit [address] [phone] Verónica Benavides MD [address] [place] [address] [place] [address] 04/21/2024 10:30 AM EDT Telemedicine Urology, [facility] [address] [facility] [place] [address] Chandler Pena MD 27 [facility] [address] [place] [address] 11/24/2024 1:40 PM EDT Office Visit Dermatology [address] [place] [address] Sheryl Pena PA-C [address] [place] [address] [place] [address] Health Maintenance Due Date Last Done Comments [...] Additional history exists CKD PHOS USE SMARTSET 53965 02/08/202401/23, 08/07/2021, 11/09/2019, Additional history exists TSH 03/25/2024 03/25/2023, 0710/2022, 10/28/2022, Additional history exists Influenza Vaccine (FLU shot) (Season Ended) 2024 06/20/2022, 06/20/2022, 06/29/2021, Additional history exists CKD HGB USE SMARTSET 82446 05/26/202405/26, 05/26/2023, 04/07/2023, Additional history exists Pneumococcal [...] Documents on File Type Date Recorded Patient Daily Sales Audit Clerk Expl anation Advance Directives and Living Will 08/10/2021 ADVANCE DIRECTIVE / LIVING WILL LIVING WILL Healthcare Agents on File Name Relationship Healthcare Agent Relationshi p Communication Josselyn Judd Adult Child Health Care Power of Attor nathalie Care Teams Diet Supervisor Relationship Specialty Start Date End Date Verónica Benavides MD [address] [place] [address] [place] [address] PCP - General Family Medicine 09/16/14 documented as of this encounter
--- OUTSIDE RECORDS SUMMARY | 2024-04-24 11:21 | External Medical Summary | Summary of Care ---
Author Name Unknown Organization [facility] Address [address] [place] [address] Phone [phone] Care Team Providers Care Clinical Document Improvement Educator Name Role Phone Verónica Benavides MD Primary Care Provide r Reason for Visit * Reason Onset Date Comments Fax 11/26/2023 Encounter Details Date Type Department Care Team (Late st Contact Info) Description 11/26/2023 Telephone Family [address] [phone] Verónica Benavides MD [address] [place] [address] [place] [phone] Fax Allergies Active Allergy Reactions Criticality Noted Date Comments Adhesive Tape Medium 01/30/2022 Ibuprofen Hives 01/13/2012 Aspirin Hives,Rash 09/15/2000 Sulfamethoxazole-Trimeth oprim Nausea/vomiting,Othe r (Please comment) 10/27/2020 Dizziness Ciprofloxacin Hcl 06/16/2019 Hoarse, dizzy,disoriented Morphine 09/21/2021 Blacked out Penicillins Hives,Rash 09/15/2000 Prednisone 12/30/2017 Weakness/memory changes/blurred vision documented as of this encounter (statuses as of 12/15/2023) Medications Medication Sig Dispensed Refills Start Date [...] in the morning. 0 08/08/2021 Active Nystatin [id number] UNIT/GM External Powder (Nystop)Indications :Lydia rash of [...] XL)Indications:Non- ischemic cardiomyopathy (HCC),Coronary artery disease involving qagan tayagungin [...] Tablet 3 07/08/2023 Active OneTouch Delica Plus [id number] s:Type 2 diabetes mellitus with hemoglobin A1c goal of less than 8.0% ([facility]) Test up to two times daily or as directed by [facility] pharmacist 200 Each 3 07/11/2023 Active Estrogens [...] as of this encounter (statuses as of 12/15/2023) Active Problems Problem Noted Date Diagnosed Date [...] Beta Berta Therapy: Metoprolol Succinate (ER) o AMRIO Inhibitor/ARB Therapy: Other: none o Diuretic therapy: [...] as of this encounter (statuses as of 12/15/2023) Resolved Problems Problem Noted Date Diagnosed Date [...] as of this encounter (statuses as of 12/15/2023) Immunizations Name Administration Dates Next Due COVID-19 mRNA, LNP-s, No Pre serve, 2-Dose Series ([employer]) 08/29/2021,10/23/2020,10/02/2020 COVID-19, MRNA-LNP, 23-24, P F, 30 [...] for blue incontinence pads. The pt uses [employer]. Ph.[phone] Fax. [phone] documented in this encounter Plan of Treatment Upcoming Encounters Date Type Department Care Team (Late st Contact Info) Description 12/23/2023 10:00 AM EDT [facility] [address] [facility] [place] [address] Destiny Schultz, POPPY [address] [place] [address] 01/07/2024 10:00 AM EDT Office Visit Ophthalmology, [address] [address] Romel Mcclelland, DO 16 [place] [address] 01/21/2024 9:10 AM EDT Office Visit Ophthalmology, [address] [place] [address] Romel Mcclelland, DO [address] [place] [address] 03/01/2024 11:20 AM EDT Office Visit Ophthalmology, [address] [place] [address] Romel Mcclelland, DO [address] [place] [address] 03/30/2024 3:40 PM EDT Office Visit Family Medicine [address] [place] [phone] Verónica Benavides MD [address] [place] [address] [place] [address] 04/21/2024 10:30 AM EDT Telemedicine Urology, [address] [place] [address] Chandler Pena MD [address] [place] [address] [address] [place] [address] 11/24/2024 1:40 PM EDT Office Visit Dermatology [address] [place] [address] Sheryl Pena PA-C [address] [place] [address] [place] [address] Health Maintenance Due Date Last Done Comments Zoster Vaccines ( 2) 1985 DXA Scan 04/02/2020 04/02/2017, 12/24, [...] Additional history exists CKD PHOS USE SMARTSET 09903 02/08/202401/23, 08/07/2021, 11/09/2019, Additional history exists TSH 03/25/2024 03/25/2023, 07/0 10/2022, 10/28/2022, Additional history exists Influenza Vaccine (FLU shot) (Season Ended) 2024 06/20/2022, 06/20/2022, 06/29/2021, Additional history exists CKD HGB USE SMARTSET 26718 05/26/202405/26, 05/26/2023, 04/07/2023, Additional history exists Pneumococcal [...] Documents on File Type Date Recorded Patient Training And Quality Manager Expl anation Advance Directives and Living Will 08/10/2021 ADVANCE DIRECTIVE / LIVING WILL LIVING WILL Healthcare Agents on File Name Relationship [facility] Josselyn Judd Adult Child Health Care Power of Attor nathalie Care Teams Clinical Document Improvement Educator Relationship Specialty Start Date End Date Verónica Benavides MD [address] [place] [address] [place] [phone] PCP - General Family Medicine 09/16/14 documented as of this encounter
--- OUTSIDE RECORDS SUMMARY | 2024-04-24 11:21 | External Medical Summary | Summary of Care ---
Author Name Unknown Organization [facility] Address [address] [place] [address] Phone [phone] Care Team Providers Care Public Transportation Inspector Name Role Phone Verónica Benavides MD Primary Care Provide r Reason for Visit * Reason Onset Date Comments [facility]: Maintenance 12/10/2023 Encounter Details Date Type Department Care Team (Late st Contact Info) Description 12/10/2023 12:30 PM EDT Scheduled Telephone [facility], [facility] 132 [facility] [place] [address] Coordinator, [facility] 132 [facility] [place] [address] Allergies Active Allergy Reactions Criticality Noted Date [...] in the morning. 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 Angie Lin RN, BSN [facility] sales service executive Navigator documented in this encounter Plan of Treatment Upcoming Encounters Date Type Department Care Team (Late st Contact Info) Description 12/17/2023 10:00 AM EDT Office Visit Ophthalmology, [facility] [address] [facility] [place] [address] Romel Mcclelland, DO 16 [facility] [place] [address] 12/23/2023 10:00 AM EDT [facility] [place] [address] Destiny Schultz RN [address] [facility] [place] [address] 03/30/2024 3:40 PM EDT Office Visit Family Medicine [address] [place] [phone] Verónica Benavides MD [address] [place] [address] [place] [address] 04/21/2024 10:30 AM EDT Telemedicine Urology, [facility] 132 [facility] [place] [address] Chandler Pena MD [address] [facility] [address] [place] [address] 11/24/2024 1:40 PM EDT Office Visit Dermatology [address] [place] [address] Sheryl Pena PA-C [address] [place] [address] [place] [address] Health Maintenance Due Date Last Done Comments [...] Additional history exists CKD PHOS USE SMARTSET 97457 02/08/2024 06/01/2023, 08/07/2021, 11/09/2019, Additional history exists TSH 03/25/2024 03/25/2023, 07/0 10/2022, 10/28/2022, Additional history exists Influenza Vaccine (FLU shot) (Season Ended) 2024 06/20/2022, 06/20/2022, 06/29/2021, Additional history exists CKD HGB USE SMARTSET 10125 05/26/202405/26, 05/26/2023, 04/07/2023, Additional history exists Pneumococcal [...] Documents on File Type Date Recorded 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
--- NOTE | 2024-04-24 12:16 | XRay Report ---
XR hip LT 2V w pelvis CLINICAL HISTORY: fall, hip fx? COMPARISON: CT of the abdomen and pelvis May 27, 2010. FINDINGS: Sacroiliac joints and symphysis pubis are intact. There are no acute fractures within the pelvis or hips. 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 Mild to moderate right hip osteoarthritis is present. IMPRESSION: No fractures within the pelvis or hips. ACT 112: Negative or not required by law. Electronically signed by: Bruce Barba M.D. 04/24/2024 12:15 PM
--- NOTE | 2024-04-24 12:42 | Emergency Department Note ---
Impression & Plan Acute knee pain, Ambulatory dysfunction ED Provider Note NAME: NITIN PURCELL AGE: 88 SEX: F : 1935 ARRIVES VIA: Ambulance INFORMANT: Patient, ED PROVIDER(S): Bubba Diallo MD CHIEF COMPLAINT: Slide out of bed HPI: This is a 88-year-old female senting after a fall. Patient has a new bed that is a sit to stand bed. Reportedly patient was standing up and started to sit down. She is unable to sit back down due to the bed height. She then slid down onto her buttocks and onto her left side. She notes her left hip hurts at this time. She notes no head trauma. No fevers, chills, nausea or vomiting. No dysuria. Unable to get up off the ground so EMS was called. ROS: See above HPI for pertinent positives & negatives. A total of 10 systems reviewed and were otherwise negative. PAST MEDICAL HISTORY: See Below PAST SURGICAL HISTORY: See Below FAMILY HISTORY: See Below SOCIAL HISTORY: See Below HOME MEDICATIONS: See Below ALLERGIES: See Below VITALS: See Below PHYSICAL EXAMINATION: General: resting comfortably in no acute distress Head: Normocephalic and atraumatic Eyes: Normal inspection, extraocular muscles intact Ear, nose, throat: Normal external exam Neck: Normal range of motion Respiratory: lungs clear to auscultation bilaterally Cardiovascular: Regular rate/rhythm, no murmur GI: soft, nontender, no guarding or rebound Extremities: Left knee pain to movement/palpation Neuro: The patient awake and alert, appropriately conversive, no focal deficits, symmetric faces Skin: Warm, dry, and intact MEDICAL DECISION MAKING: This is a an 88-year-old female presenting for fall. Patient has no clear traumatic injury externally. She is able to range her hip and knees however she has extreme pain with left knee range of motion. She does mention she has hardware in this knee. -X-rays of the hip and knee reveal no signs of traumatic injury such as fractures or dislocations upon independent or potation -Patient tried to be ambulated with nursing staff, was unable to successfully ambulate safely to at her baseline. Family comfortable discharge plan home. Will admit for further care as patient is unsafe discharge plan Differential diagnosis: Hip fracture, knee dislocation, hip dislocation ER treatment provided: See below Independent History obtained from: Daughter Diagnostics interpreted by me: ECG: ECG independently interpreted by me with atrial sensed, ventricularly paced rhythm at 70,, intraventricular conduction delay, prolonged QTc Cardiac Monitoring: An order was placed for continuous cardiac monitoring. The monitor shows a rate of 72 with ventricularly paced rhythm. Laboratory studies: As stated above and show below. Imaging studies: See below. Past Med/Surg History Problem List (Updated 04/24/24 @ 18:50 by Bubba Diallo MD) Ambulatory dysfunction (Acute) Acute knee pain (Acute) STEVE (acute kidney injury) Chronic combined systolic (congestive) and diastolic (congestive) heart failure CHF (congestive heart failure) (Acute) Generalized weakness (Acute) UTI due to extended-spectrum beta lactamase (ESBL) producing Escherichia coli (Acute) UTI due to extended-spectrum beta lactamase (ESBL) producing Escherichia coli Chronic heart failure with preserved ejection fraction Acute on chronic heart failure with preserved ejection fraction (HFpEF) Severe aortic stenosis CHF (congestive heart failure) Cough (Acute) Acute foot pain (Acute) Fall (Acute) HTN (hypertension) Right calcaneal fracture COVID-19 (Acute) DVT prophylaxis UTI due to Klebsiella species Diabetes mellitus, type II (Chronic) Aortic stenosis, moderate (Chronic) Pacemaker (Chronic) Lymphedema (Chronic) Dyspnea on exertion (Acute) History of recurrent UTIs (Chronic) Arthritis (Chronic) LBBB (left bundle branch block) (Chronic) Vertigo (Chronic) Systolic heart failure (Chronic) Hypothyroidism (Chronic) History of knee replacement, total (Chronic) NICM (nonischemic cardiomyopathy) (Chronic) Medical History Acute on chronic heart failure with preserved ejection fraction (HFpEF) Dizziness Lactic acidemia Acute UTI CHF (congestive heart failure) UTI due to extended-spectrum beta lactamase (ESBL) producing Escherichia coli Hypoxia Pneumonia Diabetes mellitus, type II Lymphedema Pacemaker History of recurrent UTIs Arthritis LBBB (left bundle branch block) Vertigo Systolic heart failure Hypothyroidism NICM (nonischemic cardiomyopathy) Surgical History History of hysterectomy Hx of cholecystectomy History of knee replacement, total Family History Other Diabetes Heart disease Hypertension Social History Smoking Status: Never smoker Second Hand Exposure: No; Do You Dip or Chew Tobacco: No; Hx Alcohol Use: No Hx Substance Use: No Preferred Language: Icelandic Communication Ability: Effective 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 Primary Required: No Beliefs That Will Affect Care: None marital status: / Current Living Situation: Family Current Living Situation Comment: has 17/03 help at home current occupational status: retired How many Children do You have: 1 Feels Safe at Home: Yes Assistive Devices: Cane, Lift Chair, Walker and Other Allergies Allergies Allergy/AdvReac Type Severity Reaction Status Date / Time aspirin Allergy Intermediate Hives, Verified 04/24/24 15:39 shortness of breath ibuprofen Allergy Intermediate Rash, hives Verified 04/24/24 15:39 Penicillins Allergy Intermediate Rash, hives Verified 04/24/24 15:39 adhesive Allergy Mild Reddened Verified 04/24/24 15:39 and sore skin morphine AdvReac Severe BLACKED OUT Verified 04/24/24 15:39 ciprofloxacin AdvReac Intermediate DIZZINESS/H Verified 04/24/24 15:39 OARSE/DISOR IENTED sulfamethoxazole AdvReac Intermediate NAUSEA/VOMI Verified 04/24/24 15:39 [From Bactrim] TING/DIZZIN ESS trimethoprim [From Bactrim] AdvReac Intermediate NAUSEA/VOMI Verified 04/24/24 15:39 TING/DIZZIN ESS prednisone AdvReac Mild CONFUSION/BLURRED Verified 04/24/24 15:39 VISION/WEAKNESS Home Meds Home Medications Medication Instructions Recorded Confirmed d-mannose 500 mg capsule 1,000 mg PO AMPM 10/22/22 04/24/24 mirabegron 25 mg tablet,extended 25 mg PO QAM 10/22/22 04/24/24 release 24 hr (Myrbetriq) omeprazole 20 mg capsule,delayed 20 mg PO DAILYBB 10/22/22 04/24/24 release spironolactone 25 mg tablet 12.5 mg PO QAM 10/22/22 04/24/24 (Aldactone) Lactobacillus acidophilus 10 10,000 mmu cells PO QPM 03/21/23 04/24/24 billion cell capsule (Probiotic) bisacodyl 5 mg tablet,delayed 10 mg PO DAILY PRN Constipation 03/21/23 04/24/24 release (Dulcolax (bisacodyl)) cholecalciferol (vitamin D3) 25 1,000 unit PO QAM 03/21/23 04/24/24 mcg (1,000 unit) capsule colchicine 0.6 mg tablet 0.6 mg PO BID PRN gout attacks 03/21/23 04/24/24 cyanocobalamin (vitamin B-12) 1,000 mcg PO QAM 03/21/23 04/24/24 1,000 mcg tablet (Vitamin B-12) dulaglutide 0.75 mg/0.5 mL 0.75 mg subcut WK 03/21/23 04/24/24 subcutaneous pen injector (Trulicity) glucosamine-chondroitin 500 mg-400 1 tab PO AMPM 03/21/23 04/24/24 mg tablet levothyroxine 88 mcg tablet 88 mcg PO DAILYBB 03/21/23 04/24/24 magnesium oxide 400 mg (241.3 mg 400 mg PO DAILY 03/21/23 04/24/24 magnesium) tablet meclizine 25 mg tablet 25 mg PO TID PRN Dizziness 03/21/23 04/24/24 potassium chloride 20 mEq 20 meq PO AMHS 03/21/23 04/24/24 tablet,extended release(part/cryst) promethazine-DM 6.25 mg-15 mg/5 mL 5 ml PO QID PRN persistant cough 03/21/23 04/24/24 oral syrup benzonatate 100 mg capsule 100 mg PO TID PRN Cough 12/09/23 04/24/24 conjugated estrogens 0.625 mg/gram 1 applic vaginal HS 12/09/23 04/24/24 vaginal cream (Premarin) docusate sodium 100 mg capsule 100 mg PO BID PRN Constipation 12/09/23 04/24/24 metolazone 2.5 mg tablet 2.5 mg PO DAILY PRN FLUID 12/09/23 04/24/24 RETENTION/LAST RESORT ondansetron HCl 4 mg tablet 4 mg PO Q6H PRN NAUSEA/VOMITING 12/09/23 04/24/24 cefdinir 300 mg capsule 300 mg PO BID 04/24/24 04/24/24 diclofenac sodium 1 % topical gel 2 g topical TID KNEE PAIN 04/24/24 04/24/24 fluorouracil 5 % topical cream 1 applic topical BID 04/24/24 04/24/24 nitrofurantoin 100 mg PO HS 04/24/24 04/24/24 monohydrate/macrocrystals 100 mg capsule nystatin 100,000 unit/gram topical 1 applic topical BID PRN UNDER 04/24/24 04/24/24 powder BREASTS/ABD FOLDS NEEDED phenazopyridine 100 mg tablet 100 mg PO TID PRN BLADDER PAIN 04/24/24 04/24/24 torsemide 20 mg tablet 60 mg PO [id number] 04/24/24 04/24/24 Previous Rx's Medication Instructions Recorded metoprolol succinate 25 mg 25 mg PO QPM #30 tabs 12/17/23 tablet,extended release 24 hr Results & Data (ED) Vital Signs Vital Signs - 24 hr 04/24/24 11:06 04/24/24 11:08 04/24/24 11:18 Temperature 37.0 C Temperature Source Oral Pulse Rate 52 L 67 Pulse Rate [Apical] Pulse Rate from SpO2 Sensor 67 Pulse Rhythm Regular Pulse Rhythm [Apical] Pulse Strength Normal Pulse Strength [Apical] Respiratory Rate 20 20 Respiratory Effort / Characteristics Non-Labored Respiratory Depth Normal Respiratory Pattern Regular Blood Pressure 98/52 L 98/52 L Blood Pressure [Right Arm] Blood Pressure Mean 75 67 Blood Pressure Mean [Right Arm] Blood Pressure Position Lying Blood Pressure Position [Right Arm] Pulse Oximetry 94 85 L Oxygen Delivery Method Room Air Oxygen Flow Rate Sepsis Recent Fever Within 48 Hours No Sepsis New/Unexplained Change in Mental Status N/A Sepsis Action Taken by Nursing No Action Required 04/24/24 11:24 04/24/24 11:25 04/24/24 11:25 Temperature Temperature Source Pulse Rate 63 Pulse Rate [Apical] Pulse Rate from SpO2 Sensor 63 Pulse Rhythm Pulse Rhythm [Apical] Pulse Strength Pulse Strength [Apical] Respiratory Rate 16 Respiratory Effort / Characteristics Respiratory Depth Respiratory Pattern Blood Pressure 100/60 100/60 Blood Pressure [Right Arm] Blood Pressure Mean 70 70 Blood Pressure Mean [Right Arm] Blood Pressure Position Blood Pressure Position [Right Arm] Pulse Oximetry 92 Oxygen Delivery Method Oxygen Flow Rate Sepsis Recent Fever Within 48 Hours Sepsis New/Unexplained Change in Mental Status Sepsis Action Taken by Nursing 04/24/24 11:25 04/24/24 11:25 04/24/24 11:27 Temperature Temperature Source Pulse Rate 68 Pulse Rate [Apical] Pulse Rate from SpO2 Sensor 68 Pulse Rhythm Pulse Rhythm [Apical] Pulse Strength Pulse Strength [Apical] Respiratory Rate 18 Respiratory Effort / Characteristics Respiratory Depth Respiratory Pattern Blood Pressure 100/60 100/60 Blood Pressure [Right Arm] Blood Pressure Mean 70 70 Blood Pressure Mean [Right Arm] Blood Pressure Position Blood Pressure Position [Right Arm] Pulse Oximetry 94 Oxygen Delivery Method Oxygen Flow Rate Sepsis Recent Fever Within 48 Hours Sepsis New/Unexplained Change in Mental Status Sepsis Action Taken by Nursing 04/24/24 11:30 04/24/24 11:30 04/24/24 11:33 Temperature Temperature Source Pulse Rate 65 Pulse Rate [Apical] Pulse Rate from SpO2 Sensor 65 Pulse Rhythm Pulse Rhythm [Apical] Pulse Strength Pulse Strength [Apical] Respiratory Rate 21 Respiratory Effort / Characteristics Respiratory Depth Respiratory Pattern Blood Pressure 112/64 112/64 Blood Pressure [Right Arm] Blood Pressure Mean 98 98 Blood Pressure Mean [Right Arm] Blood Pressure Position Blood Pressure Position [Right Arm] Pulse Oximetry 94 Oxygen Delivery Method Oxygen Flow Rate Sepsis Recent Fever Within 48 Hours Sepsis New/Unexplained Change in Mental Status Sepsis Action Taken by Nursing 04/24/24 11:39 04/24/24 12:00 04/24/24 12:00 Temperature Temperature Source Pulse Rate 65 Pulse Rate [Apical] Pulse Rate from SpO2 Sensor 65 Pulse Rhythm Pulse Rhythm [Apical] Pulse Strength Pulse Strength [Apical] Respiratory Rate 18 Respiratory Effort / Characteristics Respiratory Depth Respiratory Pattern Blood Pressure 100/56 L 100/56 L Blood Pressure [Right Arm] Blood Pressure Mean 67 67 Blood Pressure Mean [Right Arm] Blood Pressure Position Blood Pressure Position [Right Arm] Pulse Oximetry 94 Oxygen Delivery Method Oxygen Flow Rate Sepsis Recent Fever Within 48 Hours Sepsis New/Unexplained Change in Mental Status Sepsis Action Taken by Nursing 04/24/24 12:06 04/24/24 12:15 04/24/24 12:30 Temperature Temperature Source Pulse Rate 62 66 Pulse Rate [Apical] Pulse Rate from SpO2 Sensor 62 Pulse Rhythm Pulse Rhythm [Apical] Pulse Strength Pulse Strength [Apical] Respiratory Rate 15 Respiratory Effort / Characteristics Respiratory Depth Respiratory Pattern Blood Pressure 106/65 Blood Pressure [Right Arm] Blood Pressure Mean 81 Blood Pressure Mean [Right Arm] Blood Pressure Position Blood Pressure Position [Right Arm] Pulse Oximetry 95 Oxygen Delivery Method Oxygen Flow Rate Sepsis Recent Fever Within 48 Hours Sepsis New/Unexplained Change in Mental Status Sepsis Action Taken by Nursing 04/24/24 12:30 04/24/24 12:30 04/24/24 12:30 Temperature Temperature Source Pulse Rate Pulse Rate [Apical] Pulse Rate from SpO2 Sensor Pulse Rhythm Pulse Rhythm [Apical] Pulse Strength Pulse Strength [Apical] Respiratory Rate Respiratory Effort / Characteristics Respiratory Depth Respiratory Pattern Blood Pressure 106/65 106/65 106/65 Blood Pressure [Right Arm] Blood Pressure Mean 81 81 81 Blood Pressure Mean [Right Arm] Blood Pressure Position Blood Pressure Position [Right Arm] Pulse Oximetry Oxygen Delivery Method Oxygen Flow Rate Sepsis Recent Fever Within 48 Hours Sepsis New/Unexplained Change in Mental Status Sepsis Action Taken by Nursing 04/24/24 12:32 04/24/24 12:50 04/24/24 13:08 Temperature Temperature Source Pulse Rate 68 66 Pulse Rate [Apical] Pulse Rate from SpO2 Sensor 68 66 Pulse Rhythm Pulse Rhythm [Apical] Pulse Strength Pulse Strength [Apical] Respiratory Rate 16 19 Respiratory Effort / Characteristics Respiratory Depth Respiratory Pattern Blood Pressure 118/53 L Blood Pressure [Right Arm] Blood Pressure Mean 61 Blood Pressure Mean [Right Arm] Blood Pressure Position Blood Pressure Position [Right Arm] Pulse Oximetry 93 96 Oxygen Delivery Method Oxygen Flow Rate Sepsis Recent Fever Within 48 Hours Sepsis New/Unexplained Change in Mental Status Sepsis Action Taken by Nursing 04/24/24 13:17 04/24/24 13:38 04/24/24 13:44 Temperature Temperature Source Pulse Rate 73 67 64 Pulse Rate [Apical] Pulse Rate from SpO2 Sensor 72 68 63 Pulse Rhythm Pulse Rhythm [Apical] Pulse Strength Pulse Strength [Apical] Respiratory Rate 16 14 22 Respiratory Effort / Characteristics Respiratory Depth Respiratory Pattern Blood Pressure Blood Pressure [Right Arm] Blood Pressure Mean Blood Pressure Mean [Right Arm] Blood Pressure Position Blood Pressure Position [Right Arm] Pulse Oximetry 96 98 96 Oxygen Delivery Method Oxygen Flow Rate Sepsis Recent Fever Within 48 Hours Sepsis New/Unexplained Change in Mental Status Sepsis Action Taken by Nursing 04/24/24 14:00 04/24/24 14:03 04/24/24 14:27 Temperature Temperature Source Pulse Rate 68 69 Pulse Rate [Apical] Pulse Rate from SpO2 Sensor 68 68 Pulse Rhythm Pulse Rhythm [Apical] Pulse Strength Pulse Strength [Apical] Respiratory Rate 15 19 Respiratory Effort / Characteristics Respiratory Depth Respiratory Pattern Blood Pressure 105/52 L Blood Pressure [Right Arm] Blood Pressure Mean 70 Blood Pressure Mean [Right Arm] Blood Pressure Position Blood Pressure Position [Right Arm] Pulse Oximetry 97 94 Oxygen Delivery Method Oxygen Flow Rate Sepsis Recent Fever Within 48 Hours Sepsis New/Unexplained Change in Mental Status Sepsis Action Taken by Nursing 04/24/24 14:30 04/24/24 15:00 04/24/24 15:49 Temperature Temperature Source Pulse Rate Pulse Rate [Apical] 66 Pulse Rate from SpO2 Sensor Pulse Rhythm Pulse Rhythm [Apical] Regular Pulse Strength Pulse Strength [Apical] Normal Respiratory Rate 18 Respiratory Effort / Characteristics Non-Labored Spontaneous Respiratory Depth Normal Respiratory Pattern Regular Blood Pressure 121/59 L 133/80 Blood Pressure [Right Arm] 123/66 Blood Pressure Mean 88 124 Blood Pressure Mean [Right Arm] 85 Blood Pressure Position Blood Pressure Position [Right Arm] Sitting Pulse Oximetry 95 Oxygen Delivery Method Nasal Cannula Oxygen Flow Rate 2 Sepsis Recent Fever Within 48 Hours Sepsis New/Unexplained Change in Mental Status Sepsis Action Taken by Nursing 04/24/24 16:17 04/24/24 17:00 Temperature Temperature Source Pulse Rate 67 Pulse Rate [Apical] 72 Pulse Rate from SpO2 Sensor Pulse Rhythm Pulse Rhythm [Apical] Regular Pulse Strength Pulse Strength [Apical] Normal Respiratory Rate 16 Respiratory Effort / Characteristics Non-Labored Spontaneous Respiratory Depth Normal Respiratory Pattern Regular Blood Pressure Blood Pressure [Right Arm] 128/60 Blood Pressure Mean Blood Pressure Mean [Right Arm] 82 Blood Pressure Position Blood Pressure Position [Right Arm] Sitting Pulse Oximetry 98 Oxygen Delivery Method Nasal Cannula Oxygen Flow Rate 2 Sepsis Recent Fever Within 48 Hours Sepsis New/Unexplained Change in Mental Status Sepsis Action Taken by Nursing Laboratory Data 04/24/24 18:00 04/24/24 18:00 Lab Results 04/24/24 Range/Units 18:00 WBC 11.14 H (4.8-10.8) K/ul RBC 2.64 L (4.20-5.40) M/uL Hgb 10.0 L (12.0-16.0) g/dl Hct 30.0 L (37.0-47.0) % MCV 113.6 H (80.0-100.0) fL MCH 37.9 H (25.0-34.0) pg MCHC 33.3 (32.0-36.0) g/dL RDW Std Deviation 58.0 H (36.4-46.3) fL RDW Coeff of Jon 13.8 (11.5-14.5) % Plt Count 360 (130-400) K/uL MPV 9.9 (9.4-12.4) fL Immature Gran % (Auto) 0.4 % Neut % (Auto) 67.2 % Lymph % (Auto) 19.4 % [place] % (Auto) 12.4 % Eos % (Auto) 0.2 % Baso % (Auto) 0.4 % Neut # (Auto) 7.49 H (1.40-6.50) K/uL Lymph # (Auto) 2.16 (1.20-3.40) K/uL [place] # (Auto) 1.38 H (0.11-0.59) K/uL Eos # (Auto) 0.02 (0.00-0.50) K/uL Baso # (Auto) 0.05 (0.00-0.20) K/uL Immature Gran # (Auto) 0.04 (0.01-0.20) K/uL Absolute Nucleated RBC 0.03 (0.00-0.12) K/uL Nucleated RBC % (auto) 0.3 % Polychromasia 1+ Macrocytosis Present Sodium 137 (136-145) mmol/L Potassium 3.4 L (3.5-5.1) mmol/L Chloride 97 L (98-107) mmol/L Carbon Dioxide 30 (21-32) mmol/L Anion Gap 10 (3-11) BUN 42 H (6-23) mg/dl Creatinine 1.09 (0.6-1.2) mg/dl Est Cr Clr Drug Dosing 42.4 ml/min Est GFR ( Amer) 52.5 ml/min Est GFR (Non-Af Amer) 45.3 ml/min BUN/Creatinine Ratio 38.5 H (10-20) Glucose 199 H (70-99(Fasting)) mg/dl Calcium 10.2 (8.6-10.3) mg/dl Phosphorus 3.7 (2.5-4.9) mg/dl Magnesium 1.9 (1.7-2.4) mg/dl Total Bilirubin 0.4 (0.2-1.0) mg/dl Direct Bilirubin TNP AST 19 (13-39) U/L ALT 10 (7-52) U/L Alkaline Phosphatase 90 (34-104) U/L Total Protein 7.5 (6.0-8.3) gm/dl Albumin 3.9 (3.4-5.0) gm/dl Imaging Data Radiologist's Impression: Hip/Pelvis X-Ray 04/24/24 11:28 XR hip LT 2V w pelvis CLINICAL HISTORY: fall, hip fx? COMPARISON: CT of the abdomen and pelvis May 27, 2010. FINDINGS: Sacroiliac joints and symphysis pubis are intact. There are no acute fractures within the pelvis or hips. 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 Mild to moderate right hip osteoarthritis is present. IMPRESSION: No fractures within the pelvis or hips. ACT 112: Negative or not required by law. Electronically signed by: Bruce Barba M.D. 04/24/2024 12:15 PM Knee X-Ray 04/24/24 12:30 XR knee LT 3V CLINICAL HISTORY: Left knee pain following fall. COMPARISON: None FINDINGS: Left knee arthroplasty is intact. There is no periprosthetic fracture. Small joint effusion. Suprapatellar calcifications may reflect chondrocalcinosis. Multiple soft tissue calcifications are also present. IMPRESSION: Intact total left knee arthroplasty. No periprosthetic fracture. Small joint effusion. ACT 112: Negative or not required by law. Electronically signed by: Bruce Barba M.D. 04/24/2024 1:11 PM Chest X-Ray 04/24/24 17:16 XR chest 1V portable CLINICAL HISTORY: Shortness of breath. COMPARISON STUDY: Chest CT October 22, 2022 and chest radiograph December 09, 2023. FINDINGS: A left subclavian pacer is in place. Cardiomegaly is unchanged. There is no evidence for pulmonary edema. No consolidation is present. There is no pneumothorax or pleural effusion. IMPRESSION: No acute cardiopulmonary findings. Stable cardiomegaly. ACT 112: Negative or not required by law. Electronically signed by: Bruce Barba M.D. 04/24/2024 5:51 PM Discharge Plan Visit Data Chief Complaint: Hip Pain Stated Complaint: HIP PAIN ED Provider: Bubba Diallo Discharge Problem: Acute knee pain, Ambulatory dysfunction Forms Stand Alone Forms: 3[employer] game platform Prescriptions Prescriptions: No Action omeprazole 20 mg capsule,delayed release(DR/EC) 20 mg PO DAILYBB mirabegron [Myrbetriq] 25 mg tablet extended release 24 hr 25 mg PO QAM d-mannose 500 mg Capsule 1,000 mg PO AMPM spironolactone [Aldactone] 25 mg tablet 12.5 mg PO QAM levothyroxine 88 mcg tablet 88 mcg PO DAILYBB magnesium oxide 400 mg (241.3 mg magnesium) tablet 400 mg PO DAILY cholecalciferol (vitamin D3) 25 mcg (1,000 unit) capsule 1,000 unit PO QAM glucosamine-chondroitin 500-400 mg Tablet 1 tab PO AMPM potassium chloride 20 mEq tablet,ER particles/crystals 20 meq PO AMHS cyanocobalamin (vitamin B-12) [Vitamin B-12] 1,000 mcg Tablet 1,000 mcg PO QAM Probiotic 10 billion cell Capsule 10,000 mmu cells PO QPM Trulicity 0.75 mg/0.5 mL pen injector 0.75 mg SUBCUT WK Rx Instructions: wednesdays promethazine-DM 6.25-15 mg/5 mL syrup 5 ml PO QID PRN (Reason: persistant cough) meclizine 25 mg tablet 25 mg PO TID PRN (Reason: Dizziness) colchicine 0.6 mg tablet 0.6 mg PO BID PRN (Reason: gout attacks) bisacodyl [Dulcolax (bisacodyl)] 5 mg Tablet,Delayed Release (Dr/Ec) 10 mg PO DAILY PRN (Reason: Constipation) metolazone 2.5 mg Tablet 2.5 mg PO DAILY PRN (Reason: FLUID RETENTION/LAST RESORT) ondansetron HCl 4 mg tablet 4 mg PO Q6H PRN (Reason: NAUSEA/VOMITING) benzonatate 100 mg Capsule 100 mg PO TID PRN (Reason: Cough) Premarin 0.625 mg/gram cream 1 applic vaginal HS Rx Instructions: APPLY PEA-SIZE AMT TO VULUAR AT HS FOR IRRITATION docusate sodium 100 mg Capsule 100 mg PO BID PRN (Reason: Constipation) metoprolol succinate 25 mg Tablet Extended Release 24 Hr 25 mg PO QPM Qty: 30 0RF fluorouracil 5 % cream 1 applic TOPICAL BID Rx Instructions: APPLY TO RIGHT CHEEK FOR 6 WKS-STARTED 03/22/24 phenazopyridine 100 mg tablet 100 mg PO TID PRN (Reason: BLADDER PAIN) Rx Instructions: PER [facility], PER EXT MED HX--200 MG TID IF NEEDED. nystatin 100,000 unit/gram Powder 1 applic TOPICAL BID PRN (Reason: UNDER BREASTS/ABD FOLDS NEEDED) cefdinir 300 mg capsule 300 mg PO BID Rx Instructions: STARTED 04/23/24 FOR 7 DAYS nitrofurantoin monohyd/m-cryst 100 mg capsule 100 mg PO HS diclofenac sodium [Voltaren] 1 % Gel 2 g TOPICAL TID torsemide 20 mg tablet 60 mg PO BID17 Referrals Referrals: Verónica Benavides MD [Primary Care Provider] -
--- NOTE | 2024-04-24 13:12 | XRay Report ---
XR knee LT 3V CLINICAL HISTORY: Left knee pain following fall. COMPARISON: None FINDINGS: Left knee arthroplasty is intact. There is no periprosthetic fracture. Small joint effusio n. Suprapatellar calcifications may reflect chondrocalcinosis. Multiple soft tissue calcifications ar e also present. IMPRESSION: Intact total left knee arthroplasty. No periprosthetic fracture. Small joint effusion. ACT 112: Negative or not required by law. Electronically signed by: Bruce Barba M.D. 04/24/2024 1:11 PM
--- NOTE | 2024-04-24 17:34 | History & Physical Report ---
Date of Service April 24, 2024 Assessment & Plan (1) Ambulatory dysfunction: Plan: This is an 88 y/o female with DM2, recurrent UTI, hypothyroidism, CKD3, hyperlipidemia, CAD, HTN, bilateral LE lymphedema, ischemic cardiomyopathy, s/p biventricular cardiac pacemaker, severe aortic stenosis, chronic combined systolic and diastolic HF, and other history as outlined below who presents to the ED today with left hip and knee pain after sliding out of bed to the floor and landing in her right hip, where she continues to have pain. Initial work-up in the ED was negative for fracture, but when nursing attempt to ambulate the patient she had significant pain in her left knee and was not able to ambulate safely. She has been referred for admission for additional work-up and PT/OT evaluations. - Admit to med surg - CT pelvis to rule out fracture - Fall precautions - PT/OT evaluations (2) Acute knee pain: Plan: Scheduled Tylenol, diclofenac topically for pain Consult orthopedics due to pain, history of TKR (3) Hip pain, acute: Plan: Pain control as above CT pelvis as above (4) Urinary tract infection due to Proteus: Plan: Diagnosed outpatient, culture results reviewed. Porter-sensitive and had been started on cefdinir Continue course of cefdinir as prescribed (5) Diabetes mellitus, type II: Plan: Diabetic diet Insulin sliding scale BSG ACHS (6) Generalized weakness: Plan: See plan for #1 (7) Chronic combined systolic (congestive) and diastolic (congestive) heart failure: Plan: Chronic, stable. Diuretic regimen as taking outpatient Daily weights 1800 cc fluid restriction as she follows outpatient (8) Severe aortic stenosis: (9) HTN (hypertension): (10) Hypothyroidism: Plan: Chronic, stable. TSH today was 2.619 Continue levothyroxine (11) Lymphedema: Plan: Chronic, stable. Continue diuretics Plan Pt seen and reviewed with collaborating physician, Dr. Farmer. Plan of care discussed and as outlined above. Code status: DNR/DNI per daughter DVT prophylaxis: heparin subQ Admit to med surg Cathy Caballero PA-C History of Present Illness Chief Complaint: hip and knee pain Primary Care Provider: Verónica Benavides MD This is an 88 y/o female with DM2, recurrent UTI, hypothyroidism, CKD3, hyperlipidemia, CAD, HTN, bilateral LE lymphedema, ischemic cardiomyopathy, s/p biventricular cardiac pacemaker, severe aortic stenosis, chronic combined systolic and diastolic HF, and other history as outlined below who presents to the ED today with left hip and knee pain after sliding out of bed to the floor and landing in her right hip, where she continues to have pain. Pt's family recently got patient a new bed as daughters and caregiver have had difficulty getting patient in and out of bed. Home health was being arranged to assist with this but had not yet been arranged. Pt slid to the floor when she was attempting to get out of the lift bed this morning with the assistance of her career development counselor, she did not have a hard fall per family. Daughter and career development counselor were unable to get patient back up so EMS was called. Of note, pt was diagnosed with recurrent Proteus UTI yesterday (straight cath urine culture collected on 04/21/24 - >100,000 Proteus mirabilis that is porter-sensitive. Cefdinir ordered by Dr. Chaudhari, which patient took one dose of last night. Pt follows with urology due to recurrent UTI with last visit in March, note reviewed for additional information including recommendation for timed voiding. Pt's daughter provided the majority of the history as pt had some difficulty recalling the details of what occurred. Patient has no recent febrile illness, appetite is at baseline, no issues with bowel movements. No fevers, chest pain. Allergies Allergy/AdvReac Type Severity Reaction Status Date / Time aspirin Allergy Intermediate Hives, Verified 04/24/24 15:39 shortness of breath ibuprofen Allergy Intermediate Rash, hives Verified 04/24/24 15:39 Penicillins Allergy Intermediate Rash, hives Verified 04/24/24 15:39 adhesive Allergy Mild Reddened Verified 04/24/24 15:39 and sore skin morphine AdvReac Severe BLACKED OUT Verified 04/24/24 15:39 ciprofloxacin AdvReac Intermediate DIZZINESS/H Verified 04/24/24 15:39 OARSE/DISOR IENTED sulfamethoxazole AdvReac Intermediate NAUSEA/VOMI Verified 04/24/24 15:39 [From Bactrim] TING/DIZZIN ESS trimethoprim [From Bactrim] AdvReac Intermediate NAUSEA/VOMI Verified 04/24/24 15:39 TING/DIZZIN ESS prednisone AdvReac Mild CONFUSION/BLURRED Verified 04/24/24 15:39 VISION/WEAKNESS Home Medications Medication Instructions Recorded Confirmed Type d-mannose 500 mg capsule 1,000 mg PO AMPM 10/22/22 04/24/24 History mirabegron 25 mg tablet,extended 25 mg PO QAM 10/22/22 04/24/24 History release 24 hr (Myrbetriq) omeprazole 20 mg capsule,delayed 20 mg PO DAILYBB 10/22/22 04/24/24 History release spironolactone 25 mg tablet 12.5 mg PO QAM 10/22/22 04/24/24 History (Aldactone) Lactobacillus acidophilus 10 10,000 mmu cells PO QPM 03/21/23 04/24/24 History billion cell capsule (Probiotic) bisacodyl 5 mg tablet,delayed 10 mg PO DAILY PRN Constipation 03/21/23 04/24/24 History release (Dulcolax (bisacodyl)) cholecalciferol (vitamin D3) 25 1,000 unit PO QAM 03/21/23 04/24/24 History mcg (1,000 unit) capsule colchicine 0.6 mg tablet 0.6 mg PO BID PRN gout attacks 03/21/23 04/24/24 History cyanocobalamin (vitamin B-12) 1,000 mcg PO QAM 03/21/23 04/24/24 History 1,000 mcg tablet (Vitamin B-12) dulaglutide 0.75 mg/0.5 mL 0.75 mg subcut WK 03/21/23 04/24/24 History subcutaneous pen injector (Trulicity) glucosamine-chondroitin 500 mg-400 1 tab PO AMPM 03/21/23 04/24/24 History mg tablet levothyroxine 88 mcg tablet 88 mcg PO DAILYBB 03/21/23 04/24/24 History magnesium oxide 400 mg (241.3 mg 400 mg PO DAILY 03/21/23 04/24/24 History magnesium) tablet meclizine 25 mg tablet 25 mg PO TID PRN Dizziness 03/21/23 04/24/24 History potassium chloride 20 mEq 20 meq PO AMHS 03/21/23 04/24/24 History tablet,extended release(part/cryst) promethazine-DM 6.25 mg-15 mg/5 mL 5 ml PO QID PRN persistant cough 03/21/23 04/24/24 History oral syrup benzonatate 100 mg capsule 100 mg PO TID PRN Cough 12/09/23 04/24/24 History conjugated estrogens 0.625 mg/gram 1 applic vaginal HS 12/09/23 04/24/24 History vaginal cream (Premarin) docusate sodium 100 mg capsule 100 mg PO BID PRN Constipation 12/09/23 04/24/24 History metolazone 2.5 mg tablet 2.5 mg PO DAILY PRN FLUID 12/09/23 04/24/24 History RETENTION/LAST RESORT ondansetron HCl 4 mg tablet 4 mg PO Q6H PRN NAUSEA/VOMITING 12/09/23 04/24/24 History metoprolol succinate 25 mg 25 mg PO QPM #30 tabs 12/17/23 04/24/24 Rx tablet,extended release 24 hr cefdinir 300 mg capsule 300 mg PO BID 04/24/24 04/24/24 History diclofenac sodium 1 % topical gel 2 g topical TID KNEE PAIN 04/24/24 04/24/24 History fluorouracil 5 % topical cream 1 applic topical BID 04/24/24 04/24/24 History nitrofurantoin 100 mg PO HS 04/24/24 04/24/24 History monohydrate/macrocrystals 100 mg capsule nystatin 100,000 unit/gram topical 1 applic topical BID PRN UNDER 04/24/24 04/24/24 History powder BREASTS/ABD FOLDS NEEDED phenazopyridine 100 mg tablet 100 mg PO TID PRN BLADDER PAIN 04/24/24 04/24/24 History torsemide 20 mg tablet 60 mg PO BID17 04/24/24 04/24/24 History Past Med/Surg History Problem List (Updated 04/24/24 @ 20:09 by Niki Caballero PA-C) Urinary tract infection due to Proteus Hip pain, acute Ambulatory dysfunction (Acute) Acute knee pain (Acute) STEVE (acute kidney injury) Chronic combined systolic (congestive) and diastolic (congestive) heart failure CHF (congestive heart failure) (Acute) Generalized weakness (Acute) UTI due to extended-spectrum beta lactamase (ESBL) producing Escherichia coli (Acute) UTI due to extended-spectrum beta lactamase (ESBL) producing Escherichia coli Chronic heart failure with preserved ejection fraction Acute on chronic heart failure with preserved ejection fraction (HFpEF) Severe aortic stenosis CHF (congestive heart failure) Cough (Acute) Acute foot pain (Acute) Fall (Acute) HTN (hypertension) Right calcaneal fracture COVID-19 (Acute) DVT prophylaxis UTI due to Klebsiella species Diabetes mellitus, type II (Chronic) Aortic stenosis, moderate (Chronic) Pacemaker (Chronic) Lymphedema (Chronic) Dyspnea on exertion (Acute) History of recurrent UTIs (Chronic) Arthritis (Chronic) LBBB (left bundle branch block) (Chronic) Vertigo (Chronic) Systolic heart failure (Chronic) Hypothyroidism (Chronic) History of knee replacement, total (Chronic) NICM (nonischemic cardiomyopathy) (Chronic) Medical History Acute on chronic heart failure with preserved ejection fraction (HFpEF) Dizziness Lactic acidemia Acute UTI CHF (congestive heart failure) UTI due to extended-spectrum beta lactamase (ESBL) producing Escherichia coli Hypoxia Pneumonia Diabetes mellitus, type II Lymphedema Pacemaker History of recurrent UTIs Arthritis LBBB (left bundle branch block) Vertigo Systolic heart failure Hypothyroidism NICM (nonischemic cardiomyopathy) Surgical History History of hysterectomy Hx of cholecystectomy History of knee replacement, total Family History Other Diabetes Heart disease Hypertension Social History Smoking Status: Never smoker Second Hand Exposure: No; Do You Dip or Chew Tobacco: No; Hx Alcohol Use: No Hx Substance Use: No Preferred Language: Indonesian Communication Ability: Effective Quahogger Required: No Beliefs That Will Affect Care: None marital status: / Current Living Situation: Family Current Living Situation Comment: has 17/03 help at home current occupational status: retired How many Children do You have: 1 Feels Safe at Home: Yes Assistive Devices: Cane, Lift Chair, Walker and Other Review of Systems Review of Systems: All systems reviewed & are unremarkable except as noted in Subjective Physical Exam Physical Exam: General: awake, alert, NAD HEENT: no scleral icterus, moist oral mucosa Neck: supple, trachea midline Heart: RRR, +III/ systolic murmur Lungs: CTA bilaterally Abdomen: soft, NT, +BS Extremities: bilateral LE edema, tender left > right knee but no overlying erythema, wounds, or ecchymosis Neurologic: no confusion, no dysarthria, moving all extremities Results & Data Results & Data Vital Signs (Past 12 Hours) Vital Signs Temp Pulse Pulse Resp BP BP Pulse Ox 04/24/24 16:17 67 04/24/24 15:49 66 18 123/66 95 04/24/24 15:00 133/80 04/24/24 14:30 121/59 L 04/24/24 14:27 69 19 94 04/24/24 14:03 68 15 97 04/24/24 14:00 105/52 L 04/24/24 13:44 64 22 96 04/24/24 13:38 67 14 98 04/24/24 13:17 73 16 96 04/24/24 13:08 118/53 L 04/24/24 12:50 66 19 96 04/24/24 12:32 68 16 93 04/24/24 12:30 106/65 04/24/24 12:30 106/65 04/24/24 12:30 106/65 04/24/24 12:30 106/65 04/24/24 12:15 66 04/24/24 12:06 62 15 95 04/24/24 12:00 100/56 L 04/24/24 12:00 100/56 L 04/24/24 11:39 65 18 94 04/24/24 11:33 65 21 94 04/24/24 11:30 112/64 04/24/24 11:30 112/64 04/24/24 11:27 68 18 94 04/24/24 11:25 100/60 04/24/24 11:25 100/60 04/24/24 11:25 100/60 04/24/24 11:25 100/60 04/24/24 11:24 63 16 92 04/24/24 11:18 67 20 85 L 04/24/24 11:08 37.0 C 52 L 20 98/52 L 94 04/24/24 11:06 98/52 L O2 Del Method O2 Flow Rate 04/24/24 16:17 04/24/24 15:49 Nasal Cannula 2 04/24/24 15:00 04/24/24 14:30 04/24/24 14:27 04/24/24 14:03 04/24/24 14:00 04/24/24 13:44 04/24/24 13:38 04/24/24 13:17 04/24/24 13:08 04/24/24 12:50 04/24/24 12:32 04/24/24 12:30 04/24/24 12:30 04/24/24 12:30 04/24/24 12:30 04/24/24 12:15 04/24/24 12:06 04/24/24 12:00 04/24/24 12:00 04/24/24 11:39 04/24/24 11:33 04/24/24 11:30 04/24/24 11:30 04/24/24 11:27 04/24/24 11:25 04/24/24 11:25 04/24/24 11:25 04/24/24 11:25 04/24/24 11:24 04/24/24 11:18 04/24/24 11:08 Room Air 04/24/24 11:06 Diagnostic Findings Hip/Pelvis X-Ray 04/24/24 11:28 XR hip LT 2V w pelvis CLINICAL HISTORY: fall, hip fx? COMPARISON: CT of the abdomen and pelvis May 27, 2010. FINDINGS: Sacroiliac joints and symphysis pubis are intact. There are no acute fractures within the pelvis or hips. 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 Mild to moderate right hip osteoarthritis is present. IMPRESSION: No fractures within the pelvis or hips. ACT 112: Negative or not required by law. Electronically signed by: Bruce Barba M.D. 04/24/2024 12:15 PM Knee X-Ray 04/24/24 12:30 XR knee LT 3V CLINICAL HISTORY: Left knee pain following fall. COMPARISON: None FINDINGS: Left knee arthroplasty is intact. There is no periprosthetic fracture. Small joint effusion. Suprapatellar calcifications may reflect cho ndrocalcinosis. Multiple soft tissue calcifications are also present. IMPRESSION: Intact total left knee arthroplasty. No periprosthetic fracture. Small joint effusion. ACT 112: Negative or not required by law. Electronically signed by: Bruce Barba M.D. 04/24/2024 1:11 PM Supervising Physician Co-Signing Physician Notes 88-year-old lady with PMH of T2DM, recurrent UTI, hypothyroidism, CKD stage III, HLD, CAD, HTN, bilateral LE lymphedema, ischemic cardiomyopathy, status post biventricular cardiac pacemaker, severe aortic stenosis, chronic combined systolic and diastolic HF presented to the ED after she slid out of sit to stand bed. Patient also notes that she has been on antibiotic for UTI since last evening. Patient denies sore throat, reports chronic cough, reports left hip pain. Admitting imagings including chest x-ray/left knee x-ray/left hip x-ray with no acute finding. Labs reviewed, leukocytosis noted. Potassium 3.4, repleted. Mechanical fall, left hip pain: Get CT scan of left pelvis. PT/OT. Pain management, diclofenac gel 4 g left hip every 6 hour as needed for mild to moderate pain. will get CPK. UTI: Diagnosed yesterday, continue with antibiotic. On exam: General- Not in distress, on 2L NC O2. Head- atraumatic Eyes- PERRL. ENT- oropharynx clear Neck- supple, no JVD. Lungs- clear to auscultation no wheezing or crackles. Heart- regular rate and rhythm; +murmur, no gallop. Abdomen- normal bowel sounds, soft, nontender, no distension. Extremities- chronic lower extremity lymphedema seen. No erythema seen. Neuro- alert, oriented x 3; PERRL, no facial palsy; no dysarthria; obeys simple commands. Hip compression , tender left hip. I have seen and examined the patient and have discussed the case with the provider above. I agree with the assessment and plan as stated. (2) Acute knee pain Laterality: left Qualified Code(s): M25.562 - Pain in left knee (3) Hip pain, acute Laterality: right Qualified Code(s): M25.551 - Pain in right hip (5) Diabetes mellitus, type II Diabetes mellitus complication status: with other specified complication Diabetes mellitus jail insulin use: without exterminator helper use Qualified Code(s): E11.69 - Type 2 diabetes mellitus with other specified complication (9) HTN (hypertension) Hypertension type: unspecified Qualified Code(s): I10 - Essential (primary) hypertension (10) Hypothyroidism Hypothyroidism type: unspecified Qualified Code(s): E03.9 - Hypothyroidism, unspecified
--- NOTE | 2024-04-24 17:53 | XRay Report ---
XR chest 1V portable CLINICAL HISTORY: Shortness of breath. COMPARISON STUDY: Chest CT October 22, 2022 and chest radiograph December 09, 2023. FINDINGS: A left subclavian pacer is in place. Cardiomegaly is unchanged. There is no evidence for pu lmonary edema. No consolidation is present. There is no pneumothorax or pleural effusion. IMPRESSION: No acute cardiopulmonary findings. Stable cardiomegaly. ACT 112: Negative or not required by law. Electronically signed by: Bruce Barba M.D. 04/24/2024 5:51 PM
[2024-04-24 18:22] LABS: Basophils # (auto) 0.05 K/uL (0.00-0.20); Basophils % (auto) 0.4 %; Eosinophils # (auto) 0.02 K/uL (0.00-0.50); Eosinophils % (auto) 0.2 %; Immature Granulocytes # (auto) 0.04 K/uL (0.01-0.20); Immature Granulocytes % (auto) 0.4 %; Lymphocytes # (auto) 2.16 K/uL (1.20-3.40); Lymphocytes % (auto) 19.4 %; Mean Corpuscular Hemoglobin 37.9 pg (25.0-34.0); Mean Corpuscular Hgb Conc 33.3 g/dL (32.0-36.0); Mean Corpuscular Volume 113.6 fL (80.0-100.0); Mean Platelet Volume 9.9 fL (9.4-12.4); Monocytes # (auto) 1.38 K/uL (0.11-0.59); Monocytes % (auto) 12.4 %; Neutrophils # (auto) 7.49 K/uL (1.40-6.50); Neutrophils % (auto) 67.2 %; Nucleated RBC # (auto) 0.03 K/uL (0.00-0.12); Nucleated RBC % (auto) 0.3 %; Platelet Count 360 K/uL (130-400); RDW Coefficient of Variation 13.8 % (11.5-14.5); Red Blood Count 2.64 M/uL (4.20-5.40); White Blood Count 11.14 K/ul (4.8-10.8)
[2024-04-24 18:40] LABS: Alanine Aminotransferase 10 U/L (7-52); Albumin Level 3.9 gm/dl (3.4-5.0); Alkaline Phosphatase 90 U/L (34-104); Anion Gap 10 (3-11); Aspartate Aminotransferase 19 U/L (13-39); BUN Creatinine Ratio 38.5 (10-20); Bilirubin,Total 0.4 mg/dl (0.2-1.0); Blood Urea Nitrogen 42 mg/dl (6-23); Calcium 10.2 mg/dl (8.6-10.3); Carbon Dioxide 30 mmol/L (21-32); Chloride 97 mmol/L (98-107); Creatinine Clr Calc Pharmacy 42.4 ml/min; Est GFR (African American) 52.5 ml/min; Est GFR (Non-African American) 45.3 ml/min; Glucose 199 mg/dl (70-99(Fasting)); Magnesium 1.9 mg/dl (1.7-2.4); Phosphorus 3.7 mg/dl (2.5-4.9); Potassium 3.4 mmol/L (3.5-5.1); Sodium 137 mmol/L (136-145); Total Protein 7.5 gm/dl (6.0-8.3)
[2024-04-24 18:41] LABS: Macrocytosis Present; Polychromasia 1+
[2024-04-24 18:52] LABS: Thyroid Stimulating Hormone 2.619 uIu/ml (0.300-4.500)
[2024-04-24] MEDS: DICLOFENAC SOD 1% GEL 100 GM TUBE EXT SCH ×2 (19:51→20:09)
[2024-04-24] MEDS: POTASSIUM CHLORIDE CRTAB 20 MEQ TABCR PO STA (19:51)
--- OUTSIDE RECORDS SUMMARY | 2024-04-24 21:55 | External Medical Summary ---
Author Name Unknown Address Unknown Organization K01:[facility] [address] [facility] [place] [address] Laboratory Report Ordering Provider Test Date Status SARAH GAO 04/21/2024 14:43:51 Final Observation Date Value Abnormality Reference (Units ) Status Bacteria identified in Specimen by Culture 04/21/2024 14:43:51 [id number]^PROTEUS MIRABILIS Abnormal Final >100,000 colonies/mL Proteus mirabilis Performing Location [facility] - [address] [facility] [place] [address] Ordering Provider Test Date Status SARAH GAO 04/21/2024 14:43:51 Final Observation Date Value Abnormality Reference (Units ) Status Ampicillin 04/21/2024 14:43:51 <=2 Susceptible Final Cefazolin 04/21/2024 14:43:51 <=4 Susceptible Final Cefepime susceptibility 04/21/2024 14:43:51 <=1 Susceptible Final Ceftriaxone suceptibility 04/21/2024 14:43:51 <=1 Susceptible Final Ciprofloxacin 04/21/2024 14:43:51 <=0.25 Susceptible Final Due to serious side effects, the FDA has advised against using Ciprofloxacin to treat uncomplicated UTIs and respiratory tract infections unless there are no alternative treatment options. Gentamicin susceptibility 04/21/2024 14:43:51 <=1 Susc eptible Final Piperacillin + Tazobactamsusceptibility 04/21/2024 14:43:51 <=4 Susceptible Final TMP-SMZ susceptibility 04/21/2024 14:43:51 <=20 Suscept ible Final Test: Culture, Urine, Quanti tative
Specimen Source: Urine, Catheter
Specimen Type: Urine
Specimen Date: 04/21/2024 1443
Result Date: 04/24/2024 1305
Result Status: Final result
Abnormal: Yes
Resulting Lab: [facility]
[address]
[facility] [place] [address]

CULTURE

>100,000 colonies/mL Proteus mirabilis (Abnormal)

SUSCEPTIBILITY

Proteus mirabilis
METHOD MICROBROTH
DILUTIONS

AMPICILLIN [...] alternative treatment options.

null Performing Location [facility] [place] - [address] [facility] [place] [address]
[2024-04-24] MEDS ORDERED: MECLIZINE HCL 25 MG TAB PO PRN (22:15)
[2024-04-24] MEDS ORDERED: DOCUSATE SODIUM 100 MG CAP PO PRN (22:15)
[2024-04-24] MEDS ORDERED: DEXTROSE 50% 50 ML SYRINGE IV PRN (22:15)
[2024-04-24] MEDS ORDERED: NYSTATIN POWDER 15GM BTL EXT PRN (22:15)
[2024-04-24] MEDS ORDERED: GLUCOSE 40% GEL 15 GM TUBE PO PRN (22:15)
[2024-04-24] MEDS ORDERED: CARBOHYDRATES FOR HYPOGLYCEMIA PO PRN (22:15)
[2024-04-24] MEDS ORDERED: NON-FORMULARY MEDICATION (Lactobacillus Acidophilus [Probiotic] 10 billion cell Capsule) PO SCH (22:15)
[2024-04-24] MEDS ORDERED: GLUCAGON FOR INJ 1 MG VIAL SQ PRN (22:15)
[2024-04-24] MEDS ORDERED: PHENAZOPYRIDINE HCL 100 MG TAB PO PRN (22:15)
[2024-04-24] MEDS ORDERED: GLUCOSE 10 TAB/TUBE PO PRN (22:15)
[2024-04-24] MEDS ORDERED: ONDANSETRON 4 MG OD TAB PO PRN (22:37)
[2024-04-24] MEDS: ACETAMINOPHEN 500 MG TAB PO SCH (22:49)
[2024-04-24] MEDS: INSULIN ASPART PER UNIT CHARGE SC SCH (22:50)
[2024-04-24] MEDS: POTASSIUM CHLORIDE CRTAB 20 MEQ TABCR PO SCH (22:50)
[2024-04-24] MEDS: PREMARIN VAG CRM 14 APPLN/30 GM TUBE PV SCH (23:04)
--- NOTE | 2024-04-24 23:04 | CT Scan Report ---
Exam(s): CT PELVIS Without Contrast EXAM: CT Pelvis Without Intravenous Contrast CLINICAL HISTORY: Reason for exam: fall, r/o fracture. TECHNIQUE: Axial computed tomography images of the pelvis without intravenous contrast. CTDI is 38.6 mGy and DLP is 1142.16 mGy-cm. Automated exposure control was utilized for the study. A dose lowering technique was utilized adhering to the principles of ALARA. COMPARISON: No relevant prior studies available. FINDINGS: No femoral neck or intertrochanteric hip fracture. No pelvic fracture. Intact bilateral superior and inferior pubic rami. Degenerative changes of the bilateral hip joints, pubic symphysis, and sacroiliac joints. Diffuse osseous demineralization. Lumbar spondylosis and disc space narrowing. Intrapelvic contents are within normal limits for the patient's age. Intact sacrum. IMPRESSION: No hip or pelvic fracture. Electronically signed by: Edy Jean-Baptiste MD 04/24/24 23:04 PM
[2024-04-24] MEDS: HEPARIN SOD 5,000 UNIT/0.5 ML VIAL SQ SCH (23:07)
[2024-04-24] MEDS: METOPROLOL SUCC 25MG EXT REL TAB PO SCH (23:09)
[2024-04-24] MEDS: CEFDINIR 300 MG CAP PO SCH (23:09)
[2024-04-25] MEDS: LEVOTHYROXINE SODIUM 88 MCG TABLET PO SCH (05:33)
[2024-04-25] MEDS: PANTOprazole 40 MG TAB PO SCH (05:33)
[2024-04-25 06:01] LABS: Basophils # (auto) 0.04 K/uL (0.00-0.20); Basophils % (auto) 0.6 %; Eosinophils # (auto) 0.07 K/uL (0.00-0.50); Eosinophils % (auto) 1.1 %; Hematocrit (blood only) 28.4 % (37.0-47.0); Hemoglobin 9.4 g/dl (12.0-16.0); Immature Granulocytes # (auto) 0.03 K/uL (0.01-0.20); Immature Granulocytes % (auto) 0.5 %; Lymphocytes # (auto) 2.33 K/uL (1.20-3.40); Lymphocytes % (auto) 35.6 %; Mean Corpuscular Hemoglobin 37.8 pg (25.0-34.0); Mean Corpuscular Hgb Conc 33.1 g/dL (32.0-36.0); Mean Corpuscular Volume 114.1 fL (80.0-100.0); Mean Platelet Volume 9.7 fL (9.4-12.4); Monocytes # (auto) 0.97 K/uL (0.11-0.59); Monocytes % (auto) 14.8 %; Neutrophils % (auto) 47.4 %; Nucleated RBC # (auto) 0.04 K/uL (0.00-0.12); Nucleated RBC % (auto) 0.6 %; Platelet Count 325 K/uL (130-400); RDW Coefficient of Variation 13.9 % (11.5-14.5); RDW Standard Deviation 58.4 fL (36.4-46.3); Red Blood Count 2.49 M/uL (4.20-5.40); White Blood Count 6.54 K/ul (4.8-10.8)
[2024-04-25 06:10] LABS: BUN Creatinine Ratio 35.1 (10-20); Calcium 9.5 mg/dl (8.6-10.3); Creatinine Clr Calc Pharmacy 41.4 ml/min; Est GFR (African American) 51.3 ml/min; Est GFR (Non-African American) 44.3 ml/min; Magnesium 1.9 mg/dl (1.7-2.4); Potassium 3.9 mmol/L (3.5-5.1)
[2024-04-25 06:28] LABS: Macrocytosis Present
--- NOTE | 2024-04-25 07:33 | Electrocardiogram Report ---
Test Reason : Blood Pressure : */* mmHG Vent. Rate : 70 BPM Atrial Rate : 70 BPM P-R Int : 162 ms QRS Dur : 186 ms QT Int : 486 ms P-R-T Axes : 18 -69 111 degrees QTcB Int : 524 ms Atrial-sensed ventricular-paced rhythm Abnormal ECG When compared with ECG of 09-Dec-2023 17:56, No significant change was found Confirmed by Bryan Castaneda ([id number]) on 04/25/2024 7:32:52 AM Referred By: REFERRED SELF Confirmed By: Bryan Castaneda
[2024-04-25] MEDS: VIBEGRON 75 MG TAB PO SCH (07:34)
[2024-04-25] MEDS: CYANOCOBALAMIN (B-12) 500 MCG TABLET PO SCH (07:34)
[2024-04-25] MEDS: CHOLECALCIFEROL 25 MCG (1000 UNITS) TAB PO SCH (07:34)
[2024-04-25] MEDS: SPIRONOLACTONE 12.5 MG TAB PO SCH (07:35)
[2024-04-25] MEDS: TORSEMIDE 20 MG TAB PO SCH (07:35)
[2024-04-25] MEDS: MAGNESIUM OXIDE 400 MG TAB PO SCH (07:35)
--- NOTE | 2024-04-25 07:40 | Orthopedic Consultation ---
Date of Service April 25, 2024 Assessment & Plan (1) Knee contusion: Fortunately, I do not see anything fractured on the CAT scans or the x-rays. The prosthesis looks okay of the left knee. She does have some ecchymosis around her left knee and size of an contusion. I do not see any operative indications at this point. She can be weightbearing as tolerated on the left leg and I ordered ice on her left knee to help control some of the swelling. History of Present Illness Reason for Consultation: Left knee contusion. Requesting Physician: . Attending Physician: Armando Cope MD Regla is an 88-year-old female who normally ambulates with a walker. She lives by herself in a single-family home but has 24-hour assistance. Yesterday, she slid out of bed and fell onto her left hip and her left knee. She was having significant hip and knee pain. She has a history of a left knee replacement done over 20 years ago. She was having difficulty ambulating. She was brought to the emergency room. X-ray and CT scan of the left hip were negative for fracture. X-rays of the left knee were negative. Unfortunately, she still having difficulty placing weight on the left leg. Orthopedics was consulted to evaluate and treat. Allergies Allergy/AdvReac Type Severity Reaction Status Date / Time aspirin Allergy Intermediate Hives, Verified 04/24/24 15:39 shortness of breath ibuprofen Allergy Intermediate Rash, hives Verified 04/24/24 15:39 Penicillins Allergy Intermediate Rash, hives Verified 04/24/24 15:39 adhesive Allergy Mild Reddened Verified 04/24/24 15:39 and sore skin morphine AdvReac Severe BLACKED OUT Verified 04/24/24 15:39 ciprofloxacin AdvReac Intermediate DIZZINESS/H Verified 04/24/24 15:39 OARSE/DISOR IENTED sulfamethoxazole AdvReac Intermediate NAUSEA/VOMI Verified 04/24/24 15:39 [From Bactrim] TING/DIZZIN ESS trimethoprim [From Bactrim] AdvReac Intermediate NAUSEA/VOMI Verified 04/24/24 15:39 TING/DIZZIN ESS prednisone AdvReac Mild CONFUSION/BLURRED Verified 04/24/24 15:39 VISION/WEAKNESS Home Medications Medication Instructions Recorded Confirmed Type d-mannose 500 mg capsule 1,000 mg PO AMPM 10/22/22 04/24/24 History mirabegron 25 mg tablet,extended 25 mg PO QAM 10/22/22 04/24/24 History release 24 hr (Myrbetriq) omeprazole 20 mg capsule,delayed 20 mg PO DAILYBB 10/22/22 04/24/24 History release spironolactone 25 mg tablet 12.5 mg PO QAM 10/22/22 04/24/24 History (Aldactone) Lactobacillus acidophilus 10 10,000 mmu cells PO QPM 03/21/23 04/24/24 History billion cell capsule (Probiotic) bisacodyl 5 mg tablet,delayed 10 mg PO DAILY PRN Constipation 03/21/23 04/24/24 History release (Dulcolax (bisacodyl)) cholecalciferol (vitamin D3) 25 1,000 unit PO QAM 03/21/23 04/24/24 History mcg (1,000 unit) capsule colchicine 0.6 mg tablet 0.6 mg PO BID PRN gout attacks 03/21/23 04/24/24 History cyanocobalamin (vitamin B-12) 1,000 mcg PO QAM 03/21/23 04/24/24 History 1,000 mcg tablet (Vitamin B-12) dulaglutide 0.75 mg/0.5 mL 0.75 mg subcut WK 03/21/23 04/24/24 History subcutaneous pen injector (Trulicity) glucosamine-chondroitin 500 mg-400 1 tab PO AMPM 03/21/23 04/24/24 History mg tablet levothyroxine 88 mcg tablet 88 mcg PO DAILYBB 03/21/23 04/24/24 History magnesium oxide 400 mg (241.3 mg 400 mg PO DAILY 03/21/23 04/24/24 History magnesium) tablet meclizine 25 mg tablet 25 mg PO TID PRN Dizziness 03/21/23 04/24/24 History potassium chloride 20 mEq 20 meq PO AMHS 03/21/23 04/24/24 History tablet,extended release(part/cryst) promethazine-DM 6.25 mg-15 mg/5 mL 5 ml PO QID PRN persistant cough 03/21/23 04/24/24 History oral syrup benzonatate 100 mg capsule 100 mg PO TID PRN Cough 12/09/23 04/24/24 History conjugated estrogens 0.625 mg/gram 1 applic vaginal HS 12/09/23 04/24/24 History vaginal cream (Premarin) docusate sodium 100 mg capsule 100 mg PO BID PRN Constipation 12/09/23 04/24/24 History metolazone 2.5 mg tablet 2.5 mg PO DAILY PRN FLUID 12/09/23 04/24/24 History RETENTION/LAST RESORT ondansetron HCl 4 mg tablet 4 mg PO Q6H PRN NAUSEA/VOMITING 12/09/23 04/24/24 History metoprolol succinate 25 mg 25 mg PO QPM #30 tabs 12/17/23 04/24/24 Rx tablet,extended release 24 hr cefdinir 300 mg capsule 300 mg PO BID 04/24/24 04/24/24 History diclofenac sodium 1 % topical gel 2 g topical TID KNEE PAIN 04/24/24 04/24/24 History fluorouracil 5 % topical cream 1 applic topical BID 04/24/24 04/24/24 History nitrofurantoin 100 mg PO HS 04/24/24 04/24/24 History monohydrate/macrocrystals 100 mg capsule nystatin 100,000 unit/gram topical 1 applic topical BID PRN UNDER 04/24/24 04/24/24 History powder BREASTS/ABD FOLDS NEEDED phenazopyridine 100 mg tablet 100 mg PO TID PRN BLADDER PAIN 04/24/24 04/24/24 History torsemide 20 mg tablet 60 mg PO BID17 04/24/24 04/24/24 History Past Med/Surg History Problem List (Updated 04/25/24 @ 07:43 by Asif Hernandez DO) Knee contusion Urinary tract infection due to Proteus Hip pain, acute Ambulatory dysfunction (Acute) Acute knee pain (Acute) STEVE (acute kidney injury) Chronic combined systolic (congestive) and diastolic (congestive) heart failure CHF (congestive heart failure) (Acute) Generalized weakness (Acute) UTI due to extended-spectrum beta lactamase (ESBL) producing Escherichia coli (Acute) UTI due to extended-spectrum beta lactamase (ESBL) producing Escherichia coli Chronic heart failure with preserved ejection fraction Acute on chronic heart failure with preserved ejection fraction (HFpEF) Severe aortic stenosis CHF (congestive heart failure) Cough (Acute) Acute foot pain (Acute) Fall (Acute) HTN (hypertension) Right calcaneal fracture COVID-19 (Acute) DVT prophylaxis UTI due to Klebsiella species Diabetes mellitus, type II (Chronic) Aortic stenosis, moderate (Chronic) Pacemaker (Chronic) Lymphedema (Chronic) Dyspnea on exertion (Acute) History of recurrent UTIs (Chronic) Arthritis (Chronic) LBBB (left bundle branch block) (Chronic) Vertigo (Chronic) Systolic heart failure (Chronic) Hypothyroidism (Chronic) History of knee replacement, total (Chronic) NICM (nonischemic cardiomyopathy) (Chronic) Medical History Dizziness Lactic acidemia Acute UTI Hypoxia Pneumonia Surgical History History of hysterectomy Hx of cholecystectomy Family History Other Diabetes Heart disease Hypertension Social History Smoking Status: Never smoker Second Hand Exposure: No; Do You Dip or Chew Tobacco: No; Hx Alcohol Use: No Hx Substance Use: No Preferred Language: Slovak Communication Ability: Effective Lockstitch Binder Required: No Beliefs That Will Affect Care: None marital status: / Current Living Situation: Family Current Living Situation Comment: caregivers current occupational status: retired How many Children do You have: 1 Other Information That Helps Us Care for You: No Feels Safe at Home: Yes Assistive Devices: Denture - Upper, Denture - Lower, Glasses and Oxygen - Continuous Review of Systems All systems reviewed & are unremarkable except as noted in HPI & below. Physical Exam Physical examination of the left knee, there is a little bit of ecchymosis and bruising on the anterior medial aspect of the left knee. She does have some pain with logroll of the left hip. She has pain with range of motion of the kn ee. It seems to be more generalized global pain.. Constitutional WD/WN, vitals as above Eyes PERRL, conjunctivae normal, anicteric sclerae ENMT external ear and nose normal, oropharynx normal Neck trachea midline, no thyromegaly Respiratory normal respiratory effort Cardiovascular RRR, no murmur, no edema Gastrointestinal (Abdomen) normal bowel sounds, soft, nontender, no hepatosplenomegaly Psychiatric A+Ox3, euthymic affect Results & Data Results & Data Laboratory Results . Diagnostic Findings X-rays of the left hip are reviewed and there is no evidence of fracture CT scan of the left hip was reviewed and there was no evidence of pelvic or hip fracture. X-rays of the left knee were reviewed and there is a well-placed cemented left knee replacement without evidence of fracture.. PG Care Time/CCT Total # of Minutes Spent Total Time Spent with Patient: Total time spent is greater than 50% in coordination of care (as documented) at patient's floor/unit and/or counseling patient: Coding Level of Care Code 98827 IN/OBS CONSULT LVL 4,60M Diagnoses Knee contusion S80.00XA
[2024-04-25] MEDS ORDERED: traMADol HCL 50 MG TABLET PO PRN (10:22)
--- NOTE | 2024-04-25 10:22 | Hospitalist Progress Note ---
Date of Service April 25, 2024 Assessment & Plan (1) Ambulatory dysfunction: Plan: This is an 88 y/o female with DM2, recurrent UTI, hypothyroidism, CKD3, hyperlipidemia, CAD, HTN, bilateral LE lymphedema, ischemic cardiomyopathy, s/p biventricular cardiac pacemaker, severe aortic stenosis, chronic combined systolic and diastolic HF, and other histo (2) Acute knee pain: (3) Hip pain, acute: Plan: This is an 88 y/o female with DM2, recurrent UTI, hypothyroidism, CKD3, hyperlipidemia, CAD, HTN, bilateral LE lymphedema, ischemic cardiomyopathy, s/p biventricular cardiac pacemaker, severe aortic stenosis, chronic combined systolic and diastolic HF, and other history as outlined below who presents to the ED with left hip and knee pain after sliding out of bed to the floor and landing in her right hip, where she continues to have pain. Initial work-up in the ED was negative for fracture, but she continued to have significant pain in her left knee and was not able to ambulate safely. She has been referred for admission for additional work-up and PT/OT evaluations. Imaging studies include knee x-ray, hip/pelvic x-ray, pelvic CT do not report any fracture Orthopedic evaluated patient; recommend pain control and ice. Weight-bear as tolerated PT OT evaluation ordered (4) Urinary tract infection due to Proteus: Plan: Diagnosed outpatient, culture results reviewed. Schulz-sensitive and had been started on cefdinir Continue course of cefdinir as prescribed (5) Diabetes mellitus, type II: Plan: Diabetic diet Insulin sliding scale BSG ACHS (6) Generalized weakness: Plan: See plan for #1 (7) Chronic combined systolic (congestive) and diastolic (congestive) heart failure: Plan: Chronic, stable. Diuretic regimen as taking outpatient Daily weights 1800 cc fluid restriction as she follows outpatient (8) Severe aortic stenosis: (9) HTN (hypertension): (10) Hypothyroidism: Plan: Chronic, stable. TSH today was 2.619 Continue levothyroxine (11) Lymphedema: Plan: Chronic, stable. Continue diuretics Plan Code status: DNR/DNI per daughter DVT prophylaxis: heparin subQ Discussed plan of care with daughter at bedside. agreeable with plan. Please note the above document was generated using voice recognition software. It may contain grammatical, syntax or spelling errors. Any formal questions or concerns about the content, text or information contained within the body of this dictation should be directly addressed to the provider for clarification Admission and Anticipated Discharge Date Admission Date: April 24, 2024 Subjective Patient seen and examined at bedside. Reports pain on her knee; denies any other complaint Vital signs are stable and she is saturating well on room air Review of Systems Review of Systems: All systems reviewed & are unremarkable except as noted in Subjective Physical Exam Physical Exam: General: awake, alert, NAD HEENT: no scleral icterus, moist oral mucosa Neck: supple, trachea midline Heart: RRR, +III/ systolic murmur Lungs: CTA bilaterally Abdomen: soft, NT, +BS Extremities: bilateral LE edema, tender left > right knee but no overlying erythema, wounds, or ecchymosis Neurologic: no confusion, no dysarthria, moving all extremities Results & Data Results & Data Vital Signs (Past 12 Hours) Vital Signs Temp Pulse Resp BP Pulse Ox O2 Del Method O2 Flow Rate 04/25/24 07:30 Nasal Cannula 2 04/25/24 07:12 36.4 C L 64 16 107/67 96 Nasal Cannula 2 04/24/24 22:19 36.6 C 69 18 107/68 97 Nasal Cannula 2 (2) Acute knee pain Laterality: left Qualified Code(s): M25.562 - Pain in left knee (3) Hip pain, acute Laterality: right Qualified Code(s): M25.551 - Pain in right hip (5) Diabetes mellitus, type II Diabetes mellitus complication status: with other specified complication Diabetes mellitus senior living insulin use: without termite helper use Qualified Code(s): E11.69 - Type 2 diabetes mellitus with other specified complication (9) HTN (hypertension) Hypertension type: unspecified Qualified Code(s): I10 - Essential (primary) hypertension (10) Hypothyroidism Hypothyroidism type: unspecified Qualified Code(s): E03.9 - Hypothyroidism, unspecified
[2024-04-25] MEDS: FLUOROURACIL TOP CR 5% 40 GM TUBE EXT SCH (16:10)
[2024-04-26 07:07] LABS: Basophils # (auto) 0.04 K/uL (0.00-0.20); Basophils % (auto) 0.7 %; Eosinophils # (auto) 0.07 K/uL (0.00-0.50); Eosinophils % (auto) 1.2 %; Hematocrit (blood only) 26.9 % (37.0-47.0); Hemoglobin 8.9 g/dl (12.0-16.0); Immature Granulocytes # (auto) 0.02 K/uL (0.01-0.20); Immature Granulocytes % (auto) 0.4 %; Lymphocytes # (auto) 2.36 K/uL (1.20-3.40); Lymphocytes % (auto) 41.8 %; Mean Corpuscular Hemoglobin 37.9 pg (25.0-34.0); Mean Corpuscular Hgb Conc 33.1 g/dL (32.0-36.0); Mean Corpuscular Volume 114.5 fL (80.0-100.0); Mean Platelet Volume 9.5 fL (9.4-12.4); Monocytes # (auto) 0.68 K/uL (0.11-0.59); Monocytes % (auto) 12.1 %; Neutrophils # (auto) 2.47 K/uL (1.40-6.50); Neutrophils % (auto) 43.8 %; Nucleated RBC # (auto) 0.04 K/uL (0.00-0.12); Nucleated RBC % (auto) 0.7 %; Platelet Count 305 K/uL (130-400); RDW Coefficient of Variation 13.8 % (11.5-14.5); RDW Standard Deviation 57.7 fL (36.4-46.3); Red Blood Count 2.35 M/uL (4.20-5.40); White Blood Count 5.64 K/ul (4.8-10.8)
[2024-04-26 07:29] LABS: Macrocytosis Present; Polychromasia 1+
[2024-04-26 07:30] LABS: BUN Creatinine Ratio 34.9 (10-20); Calcium 9.2 mg/dl (8.6-10.3); Creatinine Clr Calc Pharmacy 44.2 ml/min; Est GFR (African American) 54.3 ml/min; Est GFR (Non-African American) 46.8 ml/min; Potassium 3.7 mmol/L (3.5-5.1)
--- NOTE | 2024-04-26 09:48 | Hospitalist Progress Note ---
Date of Service April 26, 2024 Assessment & Plan (1) Ambulatory dysfunction: (2) Acute knee pain: (3) Hip pain, acute: Plan: This is an 88 y/o female with DM2, recurrent UTI, hypothyroidism, CKD3, hyperlipidemia, CAD, HTN, bilateral LE lymphedema, ischemic cardiomyopathy, s/p biventricular cardiac pacemaker, severe aortic stenosis, chronic combined systolic and diastolic HF, and presents to the ED with left hip and knee pain after sliding out of bed to the floor and landing in her right hip. Initial work-up in the ED was negative for fracture, but she continued to have significant pain in her left knee and was not able to ambulate safely. She has been referred for admission for additional work-up and PT/OT evaluations. Imaging studies include knee x-ray, hip/pelvic x-ray, pelvic CT do not report any fracture Orthopedic evaluated patient; recommend pain control and ice. Weight-bear as tolerated PT OT evaluation ordered; will likely need rehab. Patient can bear weight as tolerated (4) Urinary tract infection due to Proteus: Plan: Diagnosed outpatient, culture results reviewed. Schulz-sensitive and had been started on cefdinir Continue course of cefdinir as prescribed (5) Diabetes mellitus, type II: Plan: Diabetic diet Insulin sliding scale BSG ACHS (6) Generalized weakness: Plan: See plan for #1 (7) Chronic combined systolic (congestive) and diastolic (congestive) heart failure: Plan: Chronic, stable. Diuretic regimen as taking outpatient Daily weights 1800 cc fluid restriction as she follows outpatient (8) Severe aortic stenosis: (9) HTN (hypertension): (10) Hypothyroidism: Plan: Chronic, stable. TSH today was 2.619 Continue levothyroxine (11) Lymphedema: Plan: Chronic, stable. Continue diuretics Plan Code status: DNR/DNI per daughter DVT prophylaxis: heparin subQ Discussed plan of care with daughter at bedside on 04/25/2024. agreeable with plan. Please note the above document was generated using voice recognition software. It may contain grammatical, syntax or spelling errors. Any formal questions or concerns about the content, text or information contained within the body of this dictation should be directly addressed to the provider for clarification Admission and Anticipated Discharge Date Admission Date: April 24, 2024 Subjective Patient seen and examined at bedside. Comfortable; not in distress. Denies fever, chills, chest pain, shortness of breath, abdominal pain or urinary symptoms. Reports pain on movement of right knee Review of Systems Review of Systems: All systems reviewed & are unremarkable except as noted in Subjective Physical Exam Physical Exam: General: awake, alert, NAD HEENT: no scleral icterus, moist oral mucosa Neck: supple, trachea midline Heart: RRR, +III/ systolic murmur Lungs: CTA bilaterally Abdomen: soft, NT, +BS Extremities: bilateral LE edema, tender left > right knee but no overlying erythema, wounds, or ecchymosis. painful ROM Neurologic: no confusion, no dysarthria, moving all extremities Results & Data Results & Data Vital Signs (Past 12 Hours) Vital Signs Temp Pulse Resp BP Pulse Ox O2 Del Method O2 Flow Rate 04/26/24 07:15 36.4 C L 60 18 114/63 96 Nasal Cannula 2 (2) Acute knee pain Laterality: left Qualified Code(s): M25.562 - Pain in left knee (3) Hip pain, acute Laterality: right Qualified Code(s): M25.551 - Pain in right hip (5) Diabetes mellitus, type II Diabetes mellitus complication status: with other specified complication Diabetes mellitus terminologist insulin use: without [facility] use Qualified Code(s): E11.69 - Type 2 diabetes mellitus with other specified complication (9) HTN (hypertension) Hypertension type: unspecified Qualified Code(s): I10 - Essential (primary) hypertension (10) Hypothyroidism Hypothyroidism type: unspecified Qualified Code(s): E03.9 - Hypothyroidism, unspecified
--- NOTE | 2024-04-27 12:37 | Hospitalist Progress Note ---
Date of Service April 27, 2024 Assessment & Plan (1) Ambulatory dysfunction: (2) Acute knee pain: (3) Hip pain, acute: Plan: This is an 88 y/o female with DM2, recurrent UTI, hypothyroidism, CKD3, hyperlipidemia, CAD, HTN, bilateral LE lymphedema, ischemic cardiomyopathy, s/p biventricular cardiac pacemaker, severe aortic stenosis, chronic combined systolic and diastolic HF, and presents to the ED with left hip and knee pain after sliding out of bed to the floor and landing in her right hip. Initial work-up in the ED was negative for fracture, but she continued to have significant pain in her left knee and was not able to ambulate safely. She has been referred for admission for additional work-up and PT/OT evaluations. Imaging studies include knee x-ray, hip/pelvic x-ray, pelvic CT do not report any fracture Orthopedic evaluated patient; recommend pain control and ice. Weight-bear as tolerated PT OT evaluation ordered; will need rehab. Patient can bear weight as tolerated (4) Urinary tract infection due to Proteus: Plan: Diagnosed outpatient, culture results reviewed. Schulz-sensitive and had been started on cefdinir Continue course of cefdinir as prescribed (5) Diabetes mellitus, type II: Plan: Diabetic diet Insulin sliding scale BSG ACHS (6) Generalized weakness: Plan: See plan for #1 (7) Chronic combined systolic (congestive) and diastolic (congestive) heart failure: Plan: Chronic, stable. Diuretic regimen as taking outpatient Daily weights 1800 cc fluid restriction as she follows outpatient (8) Severe aortic stenosis: (9) HTN (hypertension): (10) Hypothyroidism: Plan: Chronic, stable. TSH today was 2.619 Continue levothyroxine (11) Lymphedema: Plan: Chronic, stable. Continue diuretics Plan Code status: DNR/DNI per daughter DVT prophylaxis: heparin subQ Discussed plan of care with daughter at bedside on 04/25/2024. agreeable with plan. Please note the above document was generated using voice recognition software. It may contain grammatical, syntax or spelling errors. Any formal questions or concerns about the content, text or information contained within the body of this dictation should be directly addressed to the provider for clarification Admission and Anticipated Discharge Date Admission Date: April 24, 2024 Subjective Patient is sitting on a chair at the side of the bed. She reports that her knee pain has improved compared to previous day. Denies any hip pain. Review of Systems Review of Systems: All systems reviewed & are unremarkable except as noted in Subjective Physical Exam Physical Exam: General: awake, alert, NAD HEENT: no scleral icterus, moist oral mucosa Neck: supple, trachea midline Heart: RRR, +III/ systolic murmur Lungs: CTA bilaterally Abdomen: soft, NT, +BS Extremities: bilateral LE edema, tender left > right knee but no overlying erythema, wounds, or ecchymosis. painful ROM Neurologic: no confusion, no dysarthria, moving all extremities Results & Data Results & Data Vital Signs (Past 12 Hours) Vital Signs Temp Pulse Resp BP Pulse Ox O2 Del Method 04/27/24 07:30 36.7 C 75 18 129/73 93 Room Air (2) Acute knee pain Laterality: left Qualified Code(s): M25.562 - Pain in left knee (3) Hip pain, acute Laterality: right Qualified Code(s): M25.551 - Pain in right hip (5) Diabetes mellitus, type II Diabetes mellitus fdc insulin use: without fdc use Diabetes mellitus complication status: with other specified complication Qualified Code(s): E11.69 - Type 2 diabetes mellitus with other specified complication (9) HTN (hypertension) Hypertension type: unspecified Qualified Code(s): I10 - Essential (primary) hypertension (10) Hypothyroidism Hypothyroidism type: unspecified Qualified Code(s): E03.9 - Hypothyroidism, unspecified
[2024-04-27 19:35] VITALS: RESP 20
[2024-04-28 08:00] VITALS: BP 119/54; TEMP 98.1; O2SAT 94
--- NOTE | 2024-04-28 14:37 | Discharge Summary ---
Date of Service April 28, 2024 Admission HPI Per Admitting Provider This is an 88 y/o female with DM2, recurrent UTI, hypothyroidism, CKD3, hyperlipidemia, CAD, HTN, bilateral LE lymphedema, ischemic cardiomyopathy, s/p biventricular cardiac pacemaker, severe aortic stenosis, chronic combined systolic and diastolic HF, and other history as outlined below who presents to the ED today with left hip and knee pain after sliding out of bed to the floor and landing in her right hip, where she continues to have pain. Pt's family recently got patient a new bed as daughters and caregiver have had difficulty getting patient in and out of bed. Home health was being arranged to assist with this but had not yet been arranged. Pt slid to the floor when she was attempting to get out of the lift bed this morning with the assistance of her child care director, she did not have a hard fall per family. Daughter and child care director were unable to get patient back up so EMS was called. Of note, pt was diagnosed with recurrent Proteus UTI yesterday (straight cath urine culture collected on 04/21/24 - >100 ,000 Proteus mirabilis that is porter-sensitive. Cefdinir ordered by Dr. Chaudhari, which patient took one dose of last night. Pt follows with urology due to recurrent UTI with last visit in March, note reviewed for additional information including recommendation for timed voiding. Pt's daughter provided the majority of the history as pt had some difficulty recalling the details of what occurred. Patient has no recent febrile illness, appetite is at baseline, no issues with bowel movements. No fevers, chest pain. Admission Exam Per Admitting Provider General- Not in distress, on 2L NC O2. Head- atraumatic Eyes- PERRL. ENT- oropharynx clear Neck- supple, no JVD. Lungs- clear to auscultation no wheezing or crackles. Heart- regular rate and rhythm; +murmur, no gallop. Abdomen- normal bowel sounds, soft, nontender, no distension. Extremities- chronic lower extremity lymphedema seen. No erythema seen. Neuro- alert, oriented x 3; PERRL, no facial palsy; no dysarthria; obeys simple commands. Hip compression , tender left hip. Principal Diagnosis Ambulatory dysfunction Acute knee pain Acute hip pain Urinary tract infection due to Proteus Discharge Exam General: awake, alert, NAD HEENT: no scleral icterus, moist oral mucosa Neck: supple, trachea midline Heart: RRR, +III/ systolic murmur Lungs: CTA bilaterally Abdomen: soft, NT, +BS Extremities: bilateral LE edema, tender left > right knee but no overlying erythema, wounds, or ecchymosis. painful ROM Neurologic: no confusion, no dysarthria, moving all extremities Discharge Data Allergies Allergy/AdvReac Type Severity Reaction Status Date / Time aspirin Allergy Intermediate Hives, Verified 04/24/24 15:39 shortness of breath ibuprofen Allergy Intermediate Rash, hives Verified 04/24/24 15:39 Penicillins Allergy Intermediate Rash, hives Verified 04/24/24 15:39 adhesive Allergy Mild Reddened Verified 04/24/24 15:39 and sore skin morphine AdvReac Severe BLACKED OUT Verified 04/24/24 15:39 ciprofloxacin AdvReac Intermediate DIZZINESS/H Verified 04/24/24 15:39 OARSE/DISOR IENTED sulfamethoxazole AdvReac Intermediate NAUSEA/VOMI Verified 04/24/24 15:39 [From Bactrim] TING/DIZZIN ESS trimethoprim [From Bactrim] AdvReac Intermediate NAUSEA/VOMI Verified 04/24/24 15:39 TING/DIZZIN ESS prednisone AdvReac Mild CONFUSION/BLURRED Verified 04/24/24 15:39 VISION/WEAKNESS Consultations 04/24/24 17:20 ED Decision to Admit Stat 04/24/24 22:15 Consult Orthopedic Surgery Routine Ordered Studies 04/24/24 19:28 CT pelvis wo con Urgent Hospital Course (1) Ambulatory dysfunction: (2) Acute knee pain: (3) Hip pain, acute: Per prior attending with addendum: This is an 88 y/o female with DM2, recurrent UTI, hypothyroidism, CKD3, hyperlipidemia, CAD, HTN, bilateral LE lymphedema, ischemic cardiomyopathy, s/p biventricular cardiac pacemaker, severe aortic stenosis, chronic combined systolic and diastolic HF, and presents to the ED with left hip and knee pain after sliding out of bed to the floor and landing in her right hip. Initial work-up in the ED was negative for fracture, but she continued to have significant pain in her left knee and was not able to ambulate safely. She has been referred for admission for additional work-up and PT/OT evaluations. Imaging studies include knee x-ray, hip/pelvic x-ray, pelvic CT do not report any fracture Orthopedic evaluated patient; recommend pain control and ice. Weight-bear as tolerated PT OT evaluation ordered; will need rehab. Patient can bear weight as tolerated (4) Urinary tract infection due to Proteus: Diagnosed outpatient, culture results reviewed. Porter-sensitive and had been started on cefdinir Continue course of cefdinir as prescribed (5) Diabetes mellitus, type II: Diabetic diet Insulin sliding scale BSG ACHS (6) Generalized weakness: See plan for #1 (7) Chronic combined systolic (congestive) and diastolic (congestive) heart failure: Chronic, stable. Diuretic regimen as taking outpatient Daily weights 1800 cc fluid restriction as she follows outpatient (8) Severe aortic stenosis: (9) HTN (hypertension): (10) Hypothyroidism: Chronic, stable. TSH today was 2.619 Continue levothyroxine (11) Lymphedema: Chronic, stable. Continue diuretics Plan Code status: DNR/DNI per daughter DVT prophylaxis: heparin subQ Discussed plan of care with daughter at bedside on 04/25/2024. agreeable with plan. Addendum 04/2024: Patient was seen and examined at bedside. Patient hemodynamically stable and feels much improved. Patient reports pain under control. Patient is being discharged to SNF with following instruction at the point of discharge: Follow-up with your primary care physician within a week time and likely you will need labs CBC/CMP/magnesium/phosphorus. Continue with physical therapy upon discharge, weight-bear as tolerated. Complete the course of antibiotic upon discharge for UTI. Take your medications as prescribed. Please make sure that you are able to get your medications today by calling your pharmacy before you leave the hospital so that your treatment continuity is not broken. Please note the above document was generated using voice recognition software. It may contain grammatical, syntax or spelling errors. Any formal questions or concerns about the content, text or information contained within the body of this dictation should be directly addressed to the provider for clarification Home Health Attestation I certify that this patient is under my care and that I, or a physicians assistant oceanographer working with me, had a face to-face encounter that meets the home health [id number] encounter requirements with this patient. The encounter with the patient was in whole, or in part, for the following medical condition, which is the primary reason for home health care (list medical condition): I certify that, based on my findings, the following services are medically necessary home health services: My clinical findings support the need for the above services because: Further, I certify that my clinical findings support that this patient is homebound (i.e. absences from home require considerable and taxing effort and are for medical reasons or cheondoism services or infrequently or of short duration when for other reasons) because: Certification for Home Health Services: Based on the above findings, I certify that this patient is confined to the home and needs intermittent jail care, physical therapy and/or speech therapy or continues to need occupational therapy. The patient is under my care, and I have initiated the establishment of the plan of care. This patient will be followed by a physician who will periodically review the plan of care. Total Time Total Time Spent Total Time Spent (In Minutes): 45 Discharge Plan Discharge Items Patient Disposition: Transfer Alf Fac Reason For Visit: WEAKNESS, KNEE PAIN Discharge Diagnosis: Ambulatory dysfunction Acute knee pain Acute hip pain Urinary tract infection due to Proteus Activity: Per Instructions section Activity Comment: Continue with PT/OT recommendation. Non-emergency contact: Primary Care Provider Call non-emergency contact if: you have any medication questions and your symptoms worsen Follow-up/Referrals: Verónica Benavides MD [Primary Care Provider] - Diet: Carb Consistent or DM2 Fluids: 1800ml (7 cups) Addtl Attending Provider Instructions: Follow-up with your primary care physician within a week time and likely you will need labs CBC/CMP/magnesium/phosphorus. Continue with physical therapy upon discharge, weight-bear as tolerated. Complete the course of antibiotic upon discharge for UTI. Take your medications as prescribed. Please make sure that you are able to get your medications today by calling your pharmacy before you leave the hospital so that your treatment continuity is not broken. Pending Studies at Discharge: No Stand-Alone Forms: My [facility] Skilled Items Patient informed of condition?: Yes DNR: Yes Discharge Level of Care: Skilled Communicable Disease: No Discharge Prognosis: Stable Lines: None Urinary Catheter: No Medications and DC Order Prescriptions: Continued omeprazole 20 mg capsule,delayed release(DR/EC) 20 mg PO DAILYBB mirabegron [Myrbetriq] 25 mg tablet extended release 24 hr 25 mg PO QAM d-mannose 500 mg Capsule 1,000 mg PO AMPM spironolactone [Aldactone] 25 mg tablet 12.5 mg PO QAM levothyroxine 88 mcg tablet 88 mcg PO DAILYBB magnesium oxide 400 mg (241.3 mg magnesium) tablet 400 mg PO DAILY cholecalciferol (vitamin D3) 25 mcg (1,000 unit) capsule 1,000 unit PO QAM glucosamine-chondroitin 500-400 mg Tablet 1 tab PO AMPM potassium chloride 20 mEq tablet,ER particles/crystals 20 meq PO AMHS cyanocobalamin (vitamin B-12) [Vitamin B-12] 1,000 mcg Tablet 1,000 mcg PO QAM Probiotic 10 billion cell Capsule 10,000 mmu cells PO QPM Trulicity 0.75 mg/0.5 mL pen injector 0.75 mg SUBCUT WK Rx Instructions: wednesdays promethazine-DM 6.25-15 mg/5 mL syrup 5 ml PO QID PRN (Reason: persistant cough) meclizine 25 mg tablet 25 mg PO TID PRN (Reason: Dizziness) colchicine 0.6 mg tablet 0.6 mg PO BID PRN (Reason: gout attacks) bisacodyl [Dulcolax (bisacodyl)] 5 mg Tablet,Delayed Release (Dr/Ec) 10 mg PO DAILY PRN (Reason: Constipation) metolazone 2.5 mg Tablet 2.5 mg PO DAILY PRN (Reason: FLUID RETENTION/LAST RESORT) ondansetron HCl 4 mg tablet 4 mg PO Q6H PRN (Reason: NAUSEA/VOMITING) benzonatate 100 mg Capsule 100 mg PO TID PRN (Reason: Cough) Premarin 0.625 mg/gram cream 1 applic vaginal HS Rx Instructions: APPLY PEA-SIZE AMT TO VULUAR AT HS FOR IRRITATION docusate sodium 100 mg Capsule 100 mg PO BID PRN (Reason: Constipation) metoprolol succinate 25 mg Tablet Extended Release 24 Hr 25 mg PO QPM Qty: 30 0RF fluorouracil 5 % cream 1 applic TOPICAL BID Rx Instructions: APPLY TO RIGHT CHEEK FOR 6 WKS-STARTED 03/22/24 phenazopyridine 100 mg tablet 100 mg PO TID PRN (Reason: BLADDER PAIN) Rx Instructions: PER [facility], PER EXT MED HX--200 MG TID IF NEEDED. nystatin 100,000 unit/gram Powder 1 applic TOPICAL BID PRN (Reason: UNDER BREASTS/ABD FOLDS NEEDED) diclofenac sodium [Voltaren] 1 % Gel 2 g TOPICAL TID torsemide 20 mg tablet 60 mg PO BID17 cefdinir 300 mg capsule 300 mg PO BID 3 Days Qty: 6 0RF Rx Instructions: STARTED 04/23/24 FOR 7 DAYS Held nitrofurantoin monohyd/m-cryst 100 mg capsule 100 mg PO HS Hold Instructions: Resume on 05/02/24. resume once cefdinir course is completed. Discharge Orders: Discharge Order (Routine); Ordered 04/28/24 Ordered By: Marguerite Farmer Admission Data Admit Date/Time: 04/24/24 18:14 Attending Provider: Marguerite Farmer Admit Provider: Marguerite Farmer Primary Care Provider: Verónica Benavides Other Providers: Marguerite Farmer; Asif Hernandez; Sergio Taylor; [facility]
[2024-04-28 16:24] VITALS: PULSE 72
--- NOTE | 2024-04-29 18:59 | Coding Query ---
CODING QUERY To promote full compliance with coding requirements relating to patient care, provider participation is requested in all cases of development team lead uncertainty. Please assist us with the question(s) below: Coding Question(s): pt was diagnosed with recurrent Proteus UTI (straight cath urine culture collected on 04/21/24 - >100,000 Proteus mirabilis that is porter-sensitive. Cefdinir ordered by Dr. Chaudhari. Pt follows with urology due to recurrent UTI. Physician's Response(s): ___ UTI d/t straight catheter _x__ UTI only ___ Unable to determine/Other (Please specify: ) Thank you Kelsey NG
== END 2024-04-28 16:37 | DRG 605 ==
LOC: ED 10:58 → 3N 18:14 → SUATTDRO 18:14 → 3N 20:11

== ENCOUNTER 2024-06-09 16:36 | Inpatient (IN) ==
[2024-06-09 17:12] LABS: Basophils # (auto) 0.06 K/uL (0.00-0.20); Basophils % (auto) 0.8 %; Eosinophils # (auto) 0.06 K/uL (0.00-0.50); Eosinophils % (auto) 0.8 %; Hematocrit (blood only) 31.5 % (37.0-47.0); Hemoglobin 10.3 g/dl (12.0-16.0); Immature Granulocytes # (auto) 0.02 K/uL (0.01-0.20); Immature Granulocytes % (auto) 0.3 %; Mean Corpuscular Hemoglobin 37.7 pg (25.0-34.0); Mean Corpuscular Hgb Conc 32.7 g/dL (32.0-36.0); Mean Corpuscular Volume 115.4 fL (80.0-100.0); Mean Platelet Volume 9.5 fL (9.4-12.4); Monocytes # (auto) 0.95 K/uL (0.11-0.59); Monocytes % (auto) 12.4 %; Neutrophils # (auto) 4.27 K/uL (1.40-6.50); Neutrophils % (auto) 55.7 %; Nucleated RBC # (auto) 0.07 K/uL (0.00-0.12); Nucleated RBC % (auto) 0.9 %; Platelet Count 327 K/uL (130-400); RDW Coefficient of Variation 14.4 % (11.5-14.5); RDW Standard Deviation 61.4 fL (36.4-46.3); Red Blood Count 2.73 M/uL (4.20-5.40); White Blood Count 7.66 K/ul (4.8-10.8)
--- NOTE | 2024-06-09 17:28 | Emergency Department Note ---
Impression & Plan Shortness of breath, CHF (congestive heart failure), Anemia, UTI (urinary tract infection) ED Provider Note NAME: NITIN PURCELL AGE: 89 SEX: F : 1935 ARRIVES VIA: Walk-In INFORMANT: Patient ED PROVIDER(S): Jimbo Harris DO CHIEF COMPLAINT: Weakness and shortness of breath HPI: Patient is an 89-year-old female with a past medical history of CHF, STEVE, UTI with ESBL who presents to the ER for shortness of breath. Shortness of breath has been present for the past week. Has been getting worse per daughter who is present at bedside and provides additional history. She has gained 9 pounds over the past 4 days. They have increased her torsemide and she still gaining weight. She is unable to walk as she is significantly short of breath. She feels very weak and rundown. They obtained a urine culture and she believes that was positive for Pseudomonas. Denies any belly pain, nausea, vomiting, or diarrhea. No fevers. No dysuria, urgency, or frequency. ADDITIONAL HISTORY OBTAINED: Per HPI Chronic Medical/Social Conditions Affecting Care: Per HPI PAST MEDICAL HISTORY:See Below PAST SURGICAL HISTORY:See Below FAMILY HISTORY:See Below SOCIAL HISTORY:See Below HOME MEDICATIONS:See Below ALLERGIES:See Below VITALS:See Below PHYSICAL EXAMINATION: GENERAL: Sitting up in bed, alert, well appearing, well nourished, no distress, non-toxic EYE EXAM: normal conjunctiva. OROPHARYNX: mucous membranes are moist NECK: supple, no nuchal rigidity, no adenopathy, non-tender LUNGS: Clear to auscultation. Normal chest wall mechanics HEART: no murmurs, S1 normal and S2 normal ABDOMEN: abdomen soft, non-tender, normo-active bowel sounds, no masses, no rebound or guarding. UPPER EXTREMITIES: upper extremities are grossly normal. LOWER EXTREMITIES: Pitting edema in the lower extremities NEURO EXAM: Normal sensorium, cranial nerves II-XII grossly intact, normal speech, no gross weakness of arms, no gross weakness of legs. MEDICAL DECISION MAKING: Patient is an 89-year-old female who presents ER for the above-stated complaint. IV was established medicos obtained. Labs show no significant leukocytosis and mild anemia 10.3. BMP with a glucose of 222. LFTs bilirubin was unremarkable. Troponin was mildly elevated. BMP up at 450. UA did result with a UTI. This resulted after admission. Viral panel was negative. Chest x-ray with pleural effusions. Patient was given IV Lasix. She was updated bedside. Discussed with the hospitalist patient was admitted for further workup of her shortness of breath likely secondary to CHF. Consults/Care Managements Discussions: Per MDM Triage Nursing notes reviewed. Limited review of prior medical records performed Vital Signs: reviewed and remarkable for no significant abnormalities Differential diagnosis: Differential diagnoses includes but is not limited to pneumonia, bronchitis, COPD/Asthma exacerbation, pneumothorax, pulmonary embolism, congestive heart failure, acute coronary syndrome ER treatment provided: See below Diagnostics interpreted by me include EKG and cardiac monitoring as listed below: -Cardiac Monitoring: An order was placed for continuous cardiac monitoring. The monitor shows a rate of 88 with paced rhythm. -ECG: Paced 87 QTc 517 QRS 152 No PVCs -Laboratory studies:Interpreted by me as stated above in MDM and shown below. Imaging studies: Xrays: As interpreted by me: Portable AP upright 1 view of the chest shows no focal infiltrate CTs show: none Procedures:none Critical Care: None Past Med/Surg History Problem List (Updated 06/09/24 @ 21:12 by Jimbo Harris DO) UTI (urinary tract infection) (Acute) Anemia (Acute) CHF (congestive heart failure) (Acute) Shortness of breath (Acute) Nocturnal hypoxia Recurrent UTI Complicated UTI (urinary tract infection) Acute on chronic combined systolic and diastolic heart failure Knee contusion Urinary tract infection due to Proteus Hip pain, acute Ambulatory dysfunction (Acute) Acute knee pain (Acute) STEVE (acute kidney injury) Chronic combined systolic (congestive) and diastolic (congestive) heart failure CHF (congestive heart failure) (Acute) Generalized weakness (Acute) UTI due to extended-spectrum beta lactamase (ESBL) producing Escherichia coli (Acute) UTI due to extended-spectrum beta lactamase (ESBL) producing Escherichia coli Chronic heart failure with preserved ejection fraction Acute on chronic heart failure with preserved ejection fraction (HFpEF) Severe aortic stenosis CHF (congestive heart failure) Cough (Acute) Acute foot pain (Acute) Fall (Acute) HTN (hypertension) Right calcaneal fracture COVID-19 (Acute) DVT prophylaxis UTI due to Klebsiella species Diabetes mellitus, type II (Chronic) Aortic stenosis, moderate (Chronic) Pacemaker (Chronic) Lymphedema (Chronic) Dyspnea on exertion (Acute) History of recurrent UTIs (Chronic) Arthritis (Chronic) LBBB (left bundle branch block) (Chronic) Vertigo (Chronic) Systolic heart failure (Chronic) Hypothyroidism (Chronic) History of knee replacement, total (Chronic) NICM (nonischemic cardiomyopathy) (Chronic) Medical History Dizziness Lactic acidemia Acute UTI Hypoxia Pneumonia Surgical History History of hysterectomy Hx of cholecystectomy Family History Other Diabetes Heart disease Hypertension Social History Smoking Status: Never smoker Second Hand Exposure: No; Do You Dip or Chew Tobacco: No; Hx Alcohol Use: No Hx Substance Use: No Preferred Language: Stateless Communication Ability: Effective Field Collector Required: No Beliefs That Will Affect Care: None marital status: / Current Living Situation: Family Current Living Situation Comment: caregivers current occupational status: retired How many Children do You have: 1 Feels Safe at Home: Yes Assistive Devices: Denture - Upper, Denture - Lower, Glasses and Oxygen - Continuous Allergies Allergies Allergy/AdvReac Type Severity Reaction Status Date / Time aspirin Allergy Intermediate Hives, Verified 04/24/24 15:39 shortness of breath ibuprofen Allergy Intermediate Rash, hives Verified 04/24/24 15:39 Penicillins Allergy Intermediate Rash, hives Verified 04/24/24 15:39 adhesive Allergy Mild Reddened Verified 04/24/24 15:39 and sore skin morphine AdvReac Severe BLACKED OUT Verified 04/24/24 15:39 ciprofloxacin AdvReac Intermediate DIZZINESS/H Verified 04/24/24 15:39 OARSE/DISOR IENTED sulfamethoxazole AdvReac Intermediate NAUSEA/VOMI Verified 04/24/24 15:39 [From Bactrim] TING/DIZZIN ESS trimethoprim [From Bactrim] AdvReac Intermediate NAUSEA/VOMI Verified 04/24/24 15:39 TING/DIZZIN ESS prednisone AdvReac Mild CONFUSION/BLURRED Verified 04/24/24 15:39 VISION/WEAKNESS Home Meds Home Medications Medication Instructions Recorded Confirmed d-mannose 500 mg capsule 1,000 mg PO AMPM 10/22/22 06/09/24 mirabegron 25 mg tablet,extended 25 mg PO QAM 10/22/22 06/09/24 release 24 hr (Myrbetriq) omeprazole 20 mg capsule,delayed 20 mg PO DAILYBB 10/22/22 06/09/24 release spironolactone 25 mg tablet 12.5 mg PO QAM 10/22/22 06/09/24 (Aldactone) bisacodyl 5 mg tablet,delayed 10 mg PO DAILY PRN Constipation 03/21/23 06/09/24 release (Dulcolax (bisacodyl)) cholecalciferol (vitamin D3) 25 1,000 unit PO QAM 03/21/23 06/09/24 mcg (1,000 unit) capsule colchicine 0.6 mg tablet 0.6 mg PO BID PRN gout attacks 03/21/23 06/09/24 cyanocobalamin (vitamin B-12) 1,000 mcg PO QAM 03/21/23 06/09/24 1,000 mcg tablet (Vitamin B-12) dulaglutide 0.75 mg/0.5 mL 0.75 mg subcut WK 03/21/23 06/09/24 subcutaneous pen injector (Trulicity) glucosamine-chondroitin 500 mg-400 1 tab PO AMPM 03/21/23 06/09/24 mg tablet levothyroxine 88 mcg tablet 88 mcg PO DAILYBB 03/21/23 06/09/24 magnesium oxide 400 mg (241.3 mg 400 mg PO DAILY 03/21/23 06/09/24 magnesium) tablet meclizine 25 mg tablet 25 mg PO TID PRN Dizziness 03/21/23 06/09/24 potassium chloride 20 mEq 20 meq PO AMHS 03/21/23 06/09/24 tablet,extended release(part/cryst) promethazine-DM 6.25 mg-15 mg/5 mL 5 ml PO QID PRN persistant cough 03/21/23 06/09/24 oral syrup benzonatate 100 mg capsule 100 mg PO TID PRN Cough 12/09/23 06/09/24 conjugated estrogens 0.625 mg/gram 1 applic vaginal HS 12/09/23 06/09/24 vaginal cream (Premarin) docusate sodium 100 mg capsule 300 mg PO BID 12/09/23 06/09/24 metolazone 2.5 mg tablet 2.5 mg PO DAILY PRN FLUID 12/09/23 06/09/24 RETENTION/LAST RESORT ondansetron HCl 4 mg tablet 4 mg PO Q6H PRN NAUSEA/VOMITING 12/09/23 06/09/24 diclofenac sodium 1 % topical gel 2 g topical TID KNEE PAIN 04/24/24 06/09/24 nitrofurantoin 100 mg PO HS 04/24/24 06/09/24 monohydrate/macrocrystals 100 mg capsule nystatin 100,000 unit/gram topical 1 applic topical BID PRN UNDER 04/24/24 06/09/24 powder BREASTS/ABD FOLDS NEEDED phenazopyridine 100 mg tablet 100 mg PO TID PRN BLADDER PAIN 04/24/24 06/09/24 torsemide 20 mg tablet 60 mg PO [id number] 04/24/24 06/09/24 Previous Rx's Medication Instructions Recorded metoprolol succinate 25 mg 25 mg PO QPM #30 tabs 12/17/23 tablet,extended release 24 hr Results & Data (ED) Vital Signs Vital Signs - 24 hr 06/09/24 16:41 06/09/24 17:47 06/09/24 18:26 Temperature 36.1 C L Temperature Source Temporal Artery Scan Pulse Rate 77 79 Pulse Rate [Apical] 70 Respiratory Rate 18 19 Respiratory Effort / Characteristics Non-Labored Respiratory Depth Normal Respiratory Pattern Regular Blood Pressure 126/74 Blood Pressure [Left Arm] 123/86 Blood Pressure Mean 91 Blood Pressure Mean [Left Arm] 98 Pulse Oximetry 95 100 Oxygen Delivery Method Room Air Room Air Oxygen Flow Rate Sepsis Recent Fever Within 48 Hours No Sepsis New/Unexplained Change in Mental Status N/A Sepsis Action Taken by Nursing No Action Required 06/09/24 18:33 Temperature Temperature Source Pulse Rate Pulse Rate [Apical] 70 Respiratory Rate 21 Respiratory Effort / Characteristics Respiratory Depth Respiratory Pattern Blood Pressure Blood Pressure [Left Arm] 129/64 Blood Pressure Mean Blood Pressure Mean [Left Arm] 85 Pulse Oximetry 98 Oxygen Delivery Method Nasal Cannula Oxygen Flow Rate 3 Sepsis Recent Fever Within 48 Hours Sepsis New/Unexplained Change in Mental Status Sepsis Action Taken by Nursing Laboratory Data 06/09/24 16:57 06/09/24 16:57 Lab Results 06/09/24 06/09/24 Range/Units 16:57 18:20 WBC 7.66 (4.8-10.8) K/ul RBC 2.73 L (4.20-5.40) M/uL Hgb 10.3 L (12.0-16.0) g/dl Hct 31.5 L (37.0-47.0) % MCV 115.4 H (80.0-100.0) fL MCH 37.7 H (25.0-34.0) pg MCHC 32.7 (32.0-36.0) g/dL RDW Std Deviation 61.4 H (36.4-46.3) fL RDW Coeff of Jon 14.4 (11.5-14.5) % Plt Count 327 (130-400) K/uL MPV 9.5 (9.4-12.4) fL Immature Gran % (Auto) 0.3 % Neut % (Auto) 55.7 % Lymph % (Auto) 30.0 % [place] % (Auto) 12.4 % Eos % (Auto) 0.8 % Baso % (Auto) 0.8 % Neut # (Auto) 4.27 (1.40-6.50) K/uL Lymph # (Auto) 2.30 (1.20-3.40) K/uL [place] # (Auto) 0.95 H (0.11-0.59) K/uL Eos # (Auto) 0.06 (0.00-0.50) K/uL Baso # (Auto) 0.06 (0.00-0.20) K/uL Immature Gran # (Auto) 0.02 (0.01-0.20) K/uL Absolute Nucleated RBC 0.07 (0.00-0.12) K/uL Nucleated RBC % (auto) 0.9 % Polychromasia 1+ Macrocytosis Present Sodium 138 (136-145) mmol/L Potassium 3.8 (3.5-5.1) mmol/L Chloride 99 (98-107) mmol/L Carbon Dioxide 30 (21-32) mmol/L Anion Gap 9 (3-11) BUN 20 (6-23) mg/dl Creatinine 0.99 (0.6-1.2) mg/dl Est Cr Clr Drug Dosing Not Reportable eGFR 54.50 BUN/Creatinine Ratio 20.2 H (10-20) Glucose 222 H (70-99(Fasting)) mg/dl Calcium 8.9 (8.6-10.3) mg/dl Total Bilirubin 0.5 (0.2-1.0) mg/dl AST 13 (13-39) U/L ALT 7 (7-52) U/L Alkaline Phosphatase 80 (34-104) U/L Troponin I High Sens 15.9 H (0-14) pg/ml B-Natriuretic Peptide 437 H (0-100) pg/ml Total Protein 7.6 (6.0-8.3) gm/dl Albumin 3.9 (3.4-5.0) gm/dl Globulin 3.7 (2.5-4.0) gm/dl Albumin/Globulin Ratio 1.1 (0.9-2) Urine Color Yellow Urine Appearance Cloudy A (Clear) Urine pH 7.0 (4.5-7.5) Ur Specific [place] 1.008 (1.000-1.030) Urine Protein Negative (Negative) Urine Glucose (UA) Negative (Negative) Urine Ketones Negative (Negative) Urine Blood Negative (Negative) Urine Nitrite Negative (Negative) Urine Bilirubin Negative (Negative) Urine Urobilinogen Negative (Negative) Ur Leukocyte Esterase 3+ H (Negative) Urine WBC (Auto) >50 H (0-5) /hpf Urine RBC (Auto) 0-2 (0-2) /hpf U Hyaline Cast (Auto) 0-2 (0-2) /lpf U Epithel Cells (Auto) 0-2 (0-2) /hpf Urine Bacteria (Auto) 4+ H (None Seen) Adenovirus (PCR) Not Detected (NotDetected) B. pertussis DNA (PCR) Not Detected (NotDetected) B.parapertussis DNA PCR Not Detected (NotDetected) C. pneumoniae DNA (PCR) Not Detected (NotDetected) Coronavirus OC43 (PCR) Not Detected (NotDetected) Coronavirus HKU1 (PCR) Not Detected (NotDetected) Coronavirus 229E (PCR) Not Detected (NotDetected) SARS-CoV-2 (PCR) Not Detected (NotDetected) Coronavirus NL63 (PCR) Not Detected (NotDetected) Human Metapneumovir PCR Not Detected (NotDetected) Influenza Type A (PCR) Not Detected (NotDetected) Influenza Type B (PCR) Not Detected (NotDetected) M. pneumoniae (PCR) Not Detected (NotDetected) Parainfluenza 1 (PCR) Not Detected (NotDetected) Parainfluenza 2 (PCR) Not Detected (NotDetected) Parainfluenza 3 (PCR) Not Detected (NotDetected) Parainfluenza 4 (PCR) Not Detected (NotDetected) RSV (PCR) Not Detected (NotDetected) Entero/Rhino (PCR) Not Detected (NotDetected) Administered Medications Discontinued Medications Furosemide (Furosemide 40 Mg/4 Ml Vial) 40 mg IV NOW STA Stop: 06/09/24 18:08 Last Admin: 06/09/24 18:26 Dose: 40 mg Documented By: ML Imaging Data Radiologist's Impression: Chest X-Ray 06/09/24 16:50 XR chest 1V portable HISTORY: 89 years-old Female SOB, weakness acute shortness of breath COMPARISON: 04/24/2024 TECHNIQUE: AP view the chest FINDINGS: Cardiac silhouette is enlarged. Unchanged appearance of the left subclavian pacer. Atherosclerosis of the aorta. Probable trace pleural effusions with mild left basilar atelectasis. Pulmonary vascular congestion. Degenerative changes of the shoulders and spine. IMPRESSION: 1. Cardiomegaly with pulmonary vascular congestion. 2. Probable trace pleural effusions with left basilar atelectasis. ACT 112: Negative or not required by law. The above report was generated using voice recognition software. It may contain grammatical, syntax or spelling errors. Electronically signed by: Declan Sevilla M.D. 06/09/2024 6:13 PM Discharge Plan Visit Data Chief Complaint: Illness Stated Complaint: UTI, GAINED 9 LBS IN 5 DAYS, FLUID RETETNTION ED Provider: Jimbo Harris Discharge Problem: Shortness of breath, CHF (congestive heart failure), Anemia, UTI (urinary tract infection) Forms Stand Alone Forms: [facility] Prescriptions Prescriptions: No Action omeprazole 20 mg capsule,delayed release(DR/EC) 20 mg PO DAILYBB mirabegron [Myrbetriq] 25 mg tablet extended release 24 hr 25 mg PO QAM d-mannose 500 mg Capsule 1,000 mg PO AMPM spironolactone [Aldactone] 25 mg tablet 12.5 mg PO QAM levothyroxine 88 mcg tablet 88 mcg PO DAILYBB magnesium oxide 400 mg (241.3 mg magnesium) tablet 400 mg PO DAILY cholecalciferol (vitamin D3) 25 mcg (1,000 unit) capsule 1,000 unit PO QAM glucosamine-chondroitin 500-400 mg Tablet 1 tab PO AMPM potassium chloride 20 mEq tablet,ER particles/crystals 20 meq PO AMHS cyanocobalamin (vitamin B-12) [Vitamin B-12] 1,000 mcg Tablet 1,000 mcg PO QAM Trulicity 0.75 mg/0.5 mL pen injector 0.75 mg SUBCUT WK Rx Instructions: wednesdays promethazine-DM 6.25-15 mg/5 mL syrup 5 ml PO QID PRN (Reason: persistant cough) meclizine 25 mg tablet 25 mg PO TID PRN (Reason: Dizziness) colchicine 0.6 mg tablet 0.6 mg PO BID PRN (Reason: gout attacks) bisacodyl [Dulcolax (bisacodyl)] 5 mg Tablet,Delayed Release (Dr/Ec) 10 mg PO DAILY PRN (Reason: Constipation) metolazone 2.5 mg Tablet 2.5 mg PO DAILY PRN (Reason: FLUID RETENTION/LAST RESORT) ondansetron HCl 4 mg tablet 4 mg PO Q6H PRN (Reason: NAUSEA/VOMITING) benzonatate 100 mg Capsule 100 mg PO TID PRN (Reason: Cough) Premarin 0.625 mg/gram cream 1 applic vaginal HS Rx Instructions: APPLY PEA-SIZE AMT TO VULUAR AT HS FOR IRRITATION docusate sodium 100 mg Capsule 300 mg PO BID metoprolol succinate 25 mg Tablet Extended Release 24 Hr 25 mg PO QPM Qty: 30 0RF phenazopyridine 100 mg tablet 100 mg PO TID PRN (Reason: BLADDER PAIN) Rx Instructions: PER AMANUEL, PER EXT MED HX--200 MG TID IF NEEDED. nystatin 100,000 unit/gram Powder 1 applic TOPICAL BID PRN (Reason: UNDER BREASTS/ABD FOLDS NEEDED) nitrofurantoin monohyd/m-cryst 100 mg capsule 100 mg PO HS Hold Instructions: Resume on 05/02/24. resume once cefdinir course is completed. diclofenac sodium 1 % Gel 2 g TOPICAL TID torsemide 20 mg tablet 60 mg PO [id number] Referrals Referrals: Verónica Benavides MD [Primary Care Provider] - Discharge Problem: CHF (congestive heart failure) Qualifiers: Heart failure type: unspecified Heart failure chronicity: unspecified Qualified Code(s): I50.9 - Heart failure, unspecified Anemia Qualifiers: Anemia type: unspecified type Qualified Code(s): D64.9 - Anemia, unspecified UTI (urinary tract infection) Qualifiers: Urinary tract infection type: acute cystitis Hematuria presence: without hematuria Qualified Code(s): N30.00 - Acute cystitis without hematuria
[2024-06-09 17:29] LABS: Alanine Aminotransferase 7 U/L (7-52); Albumin Globulin Ratio 1.1 (0.9-2); Albumin Level 3.9 gm/dl (3.4-5.0); Alkaline Phosphatase 80 U/L (34-104); Anion Gap 9 (3-11); Aspartate Aminotransferase 13 U/L (13-39); BUN Creatinine Ratio 20.2 (10-20); Bilirubin,Total 0.5 mg/dl (0.2-1.0); Blood Urea Nitrogen 20 mg/dl (6-23); Calcium 8.9 mg/dl (8.6-10.3); Carbon Dioxide 30 mmol/L (21-32); Chloride 99 mmol/L (98-107); Globulin 3.7 gm/dl (2.5-4.0); Glucose 222 mg/dl (70-99(Fasting)); Potassium 3.8 mmol/L (3.5-5.1); Sodium 138 mmol/L (136-145); Total Protein 7.6 gm/dl (6.0-8.3)
[2024-06-09 17:34] LABS: Macrocytosis Present; Polychromasia 1+
[2024-06-09 17:59] LABS: Adenovirus PCR Not Detected (NotDetected); Bordetella parapertussis PCR Not Detected (NotDetected); Bordetella pertussis PCR Not Detected (NotDetected); Chlamydia pneumoniae PCR Not Detected (NotDetected); Coronavirus 229E PCR Not Detected (NotDetected); Coronavirus CoV-2 (COVID19)PCR Not Detected (NotDetected); Coronavirus HKU1 PCR Not Detected (NotDetected); Coronavirus NL63 PCR Not Detected (NotDetected); Coronavirus OC43PCR Not Detected (NotDetected); Human Metapneumovirus PCR Not Detected (NotDetected); Influenza A PCR Not Detected (NotDetected); Influenza B PCR Not Detected (NotDetected); Mycoplasma pneumoniae PCR Not Detected (NotDetected); Parainfluenza Virus 1 PCR Not Detected (NotDetected); Parainfluenza Virus 2 PCR Not Detected (NotDetected); Parainfluenza Virus 3 PCR Not Detected (NotDetected); Parainfluenza Virus 4 PCR Not Detected (NotDetected); Respiratory Syncytial VirusPCR Not Detected (NotDetected); Rhinovirus/Enterovirus PCR Not Detected (NotDetected)
--- NOTE | 2024-06-09 18:14 | XRay Report ---
XR chest 1V portable HISTORY: 89 years-old Female SOB, weakness acute shortness of breath COMPARISON: 04/24/2024 TECHNIQUE: AP view the chest FINDINGS: Cardiac silhouette is enlarged. Unchanged appearance of the left subclavian pacer. Atherosclerosis of the aorta. Probable trace pleural effusions with mild left basilar atelectasis. Pulmonary vascular c ongestion. Degenerative changes of the shoulders and spine. IMPRESSION: 1. Cardiomegaly with pulmonary vascular congestion. 2. Probable trace pleural effusions with left basilar atelectasis. ACT 112: Negative or not required by law. The above report was generated using voice recognition software. It may contain grammatical, syntax o r spelling errors. Electronically signed by: Declan Sevilla M.D. 06/09/2024 6:13 PM
[2024-06-09] MEDS: FUROSEMIDE 40 MG/4 ML VIAL IV STA (18:26)
[2024-06-09 18:38] LABS: Appearance Urine Cloudy (Clear); Bacteria Urine Automated 4+ (None Seen); Bilirubin Urine Negative (Negative); Blood Urine Negative (Negative); Cast Urine Automated 0-2 /lpf (0-2); Color Urine Yellow; Epithelial Cell Urine Auto 0-2 /hpf (0-2); Glucose Urine UA Negative (Negative); Ketones Urine Negative (Negative); Leukocyte Esterase Urine 3+ (Negative); Nitrite Urine Negative (Negative); Protein Urine Negative (Negative); RBC Urine Automated 0-2 /hpf (0-2); Specific Gravity Urine 1.008 (1.000-1.030); Urobilinogen Urine Negative (Negative); WBC Urine Automated >50 /hpf (0-5)
--- NOTE | 2024-06-09 18:47 | History & Physical Report ---
Date of Service June 09, 2024 Assessment & Plan (1) Acute on chronic combined systolic and diastolic heart failure: (2) Severe aortic stenosis: Plan: Patient is 89 year old female with PMH combined CHF, severe aortic stenosis, HTN, DM II, CKD III, hypothyroidism, lymphedema, s/p pacemaker, nocturnal hypoxia, recurrent UTI on suppressive therapy presented to ER with complaint of shortness of breath and weight gain x 1 week despite home attempts at increased torsemide. In ER patient afebrile, vital stable. BNP: 437, troponin: 15.9 CXR: Cardiomegaly, pulmonary vascular congestion Negative respiratory BioFire In ER given Lasix 40 mg IV. So far patient has had 900 mL urine output 03/22/2023 echo: EF: 55-60%, severe aortic stenosis, mild MR, mild TR Monitor I's and O's, daily weight. Home fluid restriction 1500 mL which we will continue Lasix 40 mg IV twice daily Echo Cardiology consult CBC, BMP, magnesium lab in a.m. (3) Ambulatory dysfunction: (4) Generalized weakness: Plan: Uses wheeled walker at baseline. Currently receiving PT/OT at home Reported increased generalized weakness and difficulty ambulating Might be secondary to underlying UTI Fall precautions PT/OT eval (5) Complicated UTI (urinary tract infection): (6) Recurrent UTI: Plan: History ESBL UTI, History recurrent UTI on suppressive therapy, follows with urology Per outpatient chart review: 06/07/2024 urine culture preliminary: >100,000 colonies nonlactose fermenting gram-negative bacilli Follow urine culture Start ertapenem Hold home Macrobid (7) Diabetes mellitus, type II: Plan: A1c: 7.3 on 04/02/2024 Hold home Trulicity NovoLog sliding scale per protocol (8) HTN (hypertension): Plan: Continue metoprolol (9) Hypothyroidism: Plan: Continue levothyroxine (10) Nocturnal hypoxia: Plan: Continue 3L oxygen via NC DVT Prophylaxis Heparin SQ Admit med tele DNR/DNI as per discussion with pt and pt daughter Follows with Dr Benavides for routine care Pt was seen and care coordinated with Dr Farmer. See addendum I spent a total of 78 minutes reviewing notes, outpatient records, labs, medication, coordinating, documenting and providing care for this patient excluding time spent in the performance of separately billed services. History of Present Illness Chief Complaint: SOB, weight gain Primary Care Provider: Verónica Benavides MD Patient is 89 year old female with PMH combined CHF, severe aortic stenosis, HTN, DM II, CKD III, hypothyroidism, lymphedema, s/p pacemaker, nocturnal hypoxia, History ESBL UTI,recurrent UTI on suppressive therapy and others listed below presented to ER with complaint of shortness of breath and weight gain x 1 week. Patient's daughter provides most of history. Patient's daughter states the past week has noted patient to be generally more weak with bilateral leg weakness. Reports ambulates with wheeled walker at baseline however has not been as ambulatory. Is currently receiving PT and OT at home. Daughter also noted patient seemed a little bit more forgetful and confused. Patient had stated had some dysuria couple days ago. She is concerned patient had UTI so had urine culture obtained 06/07/2024. She reports she was contacted today and told patient likely has resistant bacterial UTI present to ER for IV antibiotics. Daughter also reports for the past week patient has had increased shortness of breath and has had steady weight gain. States this is a nonproductive cough. Normally is on torsemide 60 mg twice daily however past 2 days with increased shortness of breath and weight gain attempted 80 mg twice daily without relief. Patient denies any chest pain. Denies fever/chills, diaphoresis, N/V/D/C, GRISSOM, dizziness, syncope, fall, vision changes, neck pain, palpitations, sore throat, otalgia, rhinorrhea, abdominal pain, paresthesias, rashes, hematuria Allergies Allergy/AdvReac Type Severity Reaction Status Date / Time aspirin Allergy Intermediate Hives, Verified 04/24/24 15:39 shortness of breath ibuprofen Allergy Intermediate Rash, hives Verified 04/24/24 15:39 Penicillins Allergy Intermediate Rash, hives Verified 04/24/24 15:39 adhesive Allergy Mild Reddened Verified 04/24/24 15:39 and sore skin morphine AdvReac Severe BLACKED OUT Verified 04/24/24 15:39 ciprofloxacin AdvReac Intermediate DIZZINESS/H Verified 04/24/24 15:39 OARSE/DISOR IENTED sulfamethoxazole AdvReac Intermediate NAUSEA/VOMI Verified 04/24/24 15:39 [From Bactrim] TING/DIZZIN ESS trimethoprim [From Bactrim] AdvReac Intermediate NAUSEA/VOMI Verified 04/24/24 15:39 TING/DIZZIN ESS prednisone AdvReac Mild CONFUSION/BLURRED Verified 04/24/24 15:39 VISION/WEAKNESS Home Medications Medication Instructions Recorded Confirmed Type d-mannose 500 mg capsule 1,000 mg PO AMPM 10/22/22 06/09/24 History mirabegron 25 mg tablet,extended 25 mg PO QAM 10/22/22 06/09/24 History release 24 hr (Myrbetriq) omeprazole 20 mg capsule,delayed 20 mg PO DAILYBB 10/22/22 06/09/24 History release spironolactone 25 mg tablet 12.5 mg PO QAM 10/22/22 06/09/24 History (Aldactone) bisacodyl 5 mg tablet,delayed 10 mg PO DAILY PRN Constipation 03/21/23 06/09/24 History release (Dulcolax (bisacodyl)) cholecalciferol (vitamin D3) 25 1,000 unit PO QAM 03/21/23 06/09/24 History mcg (1,000 unit) capsule colchicine 0.6 mg tablet 0.6 mg PO BID PRN gout attacks 03/21/23 06/09/24 History cyanocobalamin (vitamin B-12) 1,000 mcg PO QAM 03/21/23 06/09/24 History 1,000 mcg tablet (Vitamin B-12) dulaglutide 0.75 mg/0.5 mL 0.75 mg subcut WK 03/21/23 06/09/24 History subcutaneous pen injector (Trulicity) glucosamine-chondroitin 500 mg-400 1 tab PO AMPM 03/21/23 06/09/24 History mg tablet levothyroxine 88 mcg tablet 88 mcg PO DAILYBB 03/21/23 06/09/24 History magnesium oxide 400 mg (241.3 mg 400 mg PO DAILY 03/21/23 06/09/24 History magnesium) tablet meclizine 25 mg tablet 25 mg PO TID PRN Dizziness 03/21/23 06/09/24 History potassium chloride 20 mEq 20 meq PO AMHS 03/21/23 06/09/24 History tablet,extended release(part/cryst) promethazine-DM 6.25 mg-15 mg/5 mL 5 ml PO QID PRN persistant cough 03/21/23 06/09/24 History oral syrup benzonatate 100 mg capsule 100 mg PO TID PRN Cough 12/09/23 06/09/24 History conjugated estrogens 0.625 mg/gram 1 applic vaginal HS 12/09/23 06/09/24 History vaginal cream (Premarin) docusate sodium 100 mg capsule 300 mg PO BID 12/09/23 06/09/24 History metolazone 2.5 mg tablet 2.5 mg PO DAILY PRN FLUID 12/09/23 06/09/24 History RETENTION/LAST RESORT ondansetron HCl 4 mg tablet 4 mg PO Q6H PRN NAUSEA/VOMITING 12/09/23 06/09/24 History metoprolol succinate 25 mg 25 mg PO QPM #30 tabs 12/17/23 06/09/24 Rx tablet,extended release 24 hr diclofenac sodium 1 % topical gel 2 g topical TID KNEE PAIN 04/24/24 06/09/24 History nitrofurantoin 100 mg PO HS 04/24/24 06/09/24 History monohydrate/macrocrystals 100 mg capsule nystatin 100,000 unit/gram topical 1 applic topical BID PRN UNDER 04/24/24 06/09/24 History powder BREASTS/ABD FOLDS NEEDED phenazopyridine 100 mg tablet 100 mg PO TID PRN BLADDER PAIN 04/24/24 06/09/24 History torsemide 20 mg tablet 60 mg PO BID17 04/24/24 06/09/24 History Past Med/Surg History Problem List (Updated 06/09/24 @ 19:49 by Ivelisse Cho PA-C) Nocturnal hypoxia Recurrent UTI Complicated UTI (urinary tract infection) Acute on chronic combined systolic and diastolic heart failure Knee contusion Urinary tract infection due to Proteus Hip pain, acute Ambulatory dysfunction (Acute) Acute knee pain (Acute) STEVE (acute kidney injury) Chronic combined systolic (congestive) and diastolic (congestive) heart failure CHF (congestive heart failure) (Acute) Generalized weakness (Acute) UTI due to extended-spectrum beta lactamase (ESBL) producing Escherichia coli (Acute) UTI due to extended-spectrum beta lactamase (ESBL) producing Escherichia coli Chronic heart failure with preserved ejection fraction Acute on chronic heart failure with preserved ejection fraction (HFpEF) Severe aortic stenosis CHF (congestive heart failure) Cough (Acute) Acute foot pain (Acute) Fall (Acute) HTN (hypertension) Right calcaneal fracture COVID-19 (Acute) DVT prophylaxis UTI due to Klebsiella species Diabetes mellitus, type II (Chronic) Aortic stenosis, moderate (Chronic) Pacemaker (Chronic) Lymphedema (Chronic) Dyspnea on exertion (Acute) History of recurrent UTIs (Chronic) Arthritis (Chronic) LBBB (left bundle branch block) (Chronic) Vertigo (Chronic) Systolic heart failure (Chronic) Hypothyroidism (Chronic) History of knee replacement, total (Chronic) NICM (nonischemic cardiomyopathy) (Chronic) Medical History Dizziness Lactic acidemia Acute UTI Hypoxia Pneumonia Surgical History History of hysterectomy Hx of cholecystectomy Family History Other Diabetes Heart disease Hypertension Social History Smoking Status: Never smoker Second Hand Exposure: No; Do You Dip or Chew Tobacco: No; Hx Alcohol Use: No Hx Substance Use: No Preferred Language: [place] Communication Ability: Effective 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: No Beliefs That Will Affect Care: None marital status: / Current Living Situation: Family Current Living Situation Comment: caregivers current occupational status: retired How many Children do You have: 1 Feels Safe at Home: Yes Assistive Devices: Denture - Upper, Denture - Lower, Glasses and Oxygen - Flash nuous Review of Systems Review of Systems: All systems reviewed & are unremarkable except as noted in HPI & below Physical Exam Physical Exam: General: no distress, obese elderly femal Head: normocephalic, atraumatic Eyes: conjunctiva non-injected, anicteric ENT: normal inspection external ears, nose, mucous membranes moist Neck: supple, trachea midline, non-tender Lungs: no respiratory distress at rest, +rales bases CV: RRR, + murmur, large BLE without noted pitting edema Abd: protuberant, normal BS, soft, non-tender Ext: no cyanosis, no calf tenderness Neuro: Alert, oriented to person and place and knows it is [birth year] birthday today, no focal deficits noted, normal affect Skin: warm, dry Results & Data Results & Data Vital Signs (Past 12 Hours) Vital Signs Temp Pulse Pulse Resp BP BP Pulse Ox 06/09/24 18:33 70 21 129/64 98 06/09/24 18:26 70 19 123/86 100 06/09/24 17:47 79 06/09/24 16:41 36.1 C L 77 18 126/74 95 O2 Del Method O2 Flow Rate 06/09/24 18:33 Nasal Cannula 3 06/09/24 18:26 Room Air 06/09/24 17:47 06/09/24 16:41 Room Air Laboratory Results Short CBC 06/09/24 Range/Units 16:57 WBC 7.66 (4.8-10.8) K/ul Hgb 10.3 L (12.0-16.0) g/dl Hct 31.5 L (37.0-47.0) % Plt Count 327 (130-400) K/uL BMP 06/09/24 16:57 Sodium 138 Potassium 3.8 Chloride 99 Carbon Dioxide 30 BUN 20 Creatinine 0.99 Glucose 222 H Calcium 8.9 Liver Function 06/09/24 Range/Units 16:57 Total Bilirubin 0.5 (0.2-1.0) mg/dl AST 13 (13-39) U/L ALT 7 (7-52) U/L Alkaline Phosphatase 80 (34-104) U/L Albumin 3.9 (3.4-5.0) gm/dl Urine 06/09/24 Range/Units 18:20 Urine Color Yellow Urine Appearance Cloudy A (Clear) Urine pH 7.0 (4.5-7.5) Ur Specific [place] 1.008 (1.000-1.030) Urine Protein Negative (Negative) Urine Glucose (UA) Negative (Negative) Diagnostic Findings Chest X-Ray 06/09/24 16:50 XR chest 1V portable HISTORY: 89 years-old Female SOB, weakness acute shortness of breath COMPARISON: 04/24/2024 TECHNIQUE: AP view the chest FINDINGS: Cardiac silhouette is enlarged. Unchanged appearance of the left subclavian pacer. Atherosclerosis of the aorta. Probable trace pleural effusions with mild left basilar atelectasis. Pulmonary vascular congestion. Degenerative changes of the shoulders and spine. IMPRESSION: 1. Cardiomegaly with pulmonary vascular congestion. 2. Probable trace pleural effusions with left basilar atelectasis. ACT 112: Negative or not required by law. The above report was generated using voice recognition software. It may contain grammatical, syntax or spelling errors. Electronically signed by: Declan Sevilla M.D. 06/09/2024 6:13 PM ECG Additional Comments: paced rhythm per my interpretation Supervising Physician Co-Signing Physician Notes 88 y/o female with DM2, recurrent UTI, hypothyroidism, CKD3, hyperlipidemia, CAD, HTN, bilateral LE lymphedema, ischemic cardiomyopathy, s/p biventricular cardiac pacemaker, severe aortic stenosis, chronic combined systolic and diastolic HF, and presents to the ED with worsening shortness of breath and 9 pounds of weight gain in the last 1 week. She was also noted to have UTI on 06/07 outpatient urine culture, currently preliminary results [nonlactose forming gram-negative bacilli]. Patient denies fever, reports dry cough, denies flulike illness. Labs reviewed, fairly at her baseline, BNP 437. Outpatient urine culture result reviewed, as above. Respiratory BioFire panel negative. CXR with pulmonary vascular congestion. Patient's daughter at bedside reports her torsemide was increased to 80 mg twice daily for 2 days prior to arrival and had a plan of getting IV Lasix at home yesterday but did not happen. Acute on chronic combined systolic and diastolic heart failure: Patient received IV Lasix in the ED, fluid restriction of 1500 mL a day, cardiology consult, telemetry monitoring. 40 Mg IV Lasix BID. Complicated UTI: History of ESBL E. coli, 06/07 urine culture preliminary positive as above, continue with ertapenem for now, add probiotic, de-escalate antibiotic once more results available as appropriate. On Exam: GENERAL:awake, lethargic appearing. NAD, on 3L NC O2. appears ill/frail/weak. HEENT: No pallor, no icterus. Pupils equal, round and reactive to light. Oral mucosa moist. NECK: No JVD, no neck masses. HEART: S1 and S2 heard. Regular rate and rhythm. No murmur, no gallop. RESPIRATORY SYSTEM: Normal AP diameter. No accessory muscle use. No wheezing, bb crackles. ABDOMEN: Soft, bowel sounds present, nontender, no distention. CENTRAL NERVOUS SYSTEM: No facial droop. Speech is clear. Obeys simple commands. Moves extremities. EXTREMITIES: Ble lymphedema w/ swelling, no erythema seen. UC w/ yellow urine collection noted. I have seen and examined the patient and have discussed the case with the provider above. I agree with the assessment and plan as stated. (7) Diabetes mellitus, type II Diabetes mellitus warp splitter insulin use: without warp splitter use Diabetes mellitus complication status: with other specified complication Qualified Code(s): E11.69 - Type 2 diabetes mellitus with other specified complication (8) HTN (hypertension) Hypertension type: unspecified Qualified Code(s): I10 - Essential (primary) hypertension (9) Hypothyroidism Hypothyroidism type: unspecified Qualified Code(s): E03.9 - Hypothyroidism, unspecified
[2024-06-09 19:11] LABS: Troponin I High Sensitivity 15.9 pg/ml (0-14)
[2024-06-09] MEDS ORDERED: GLUCOSE 10 TAB/TUBE PO PRN (21:34)
[2024-06-09] MEDS ORDERED: GLUCOSE 40% GEL 15 GM TUBE PO PRN (21:34)
[2024-06-09] MEDS ORDERED: GLUCAGON FOR INJ 1 MG VIAL SQ PRN (21:34)
[2024-06-09] MEDS ORDERED: DEXTROSE 50% 50 ML SYRINGE IV PRN (21:34)
[2024-06-09] MEDS ORDERED: ACETAMINOPHEN 325 MG TAB PO PRN (21:34)
[2024-06-09] MEDS ORDERED: DICLOFENAC SOD 1% GEL 100 GM TUBE EXT PRN (21:34)
[2024-06-09] MEDS ORDERED: POLYETHYLENE (MIRALAX) 17 GM PACK PO PRN (21:34)
[2024-06-09] MEDS ORDERED: CARBOHYDRATES FOR HYPOGLYCEMIA PO PRN (21:34)
[2024-06-09] MEDS ORDERED: ONDANSETRON INJ 2 MG/ML 2 ML VIAL IV PRN (21:34)
[2024-06-09] MEDS: DOCUSATE SODIUM 100 MG CAP PO SCH (22:04)
[2024-06-09] MEDS: PREMARIN VAG CRM 14 APPLN/30 GM TUBE PV SCH (22:04)
[2024-06-09] MEDS: METOPROLOL SUCC 25MG EXT REL TAB PO SCH (22:05)
[2024-06-09] MEDS: POTASSIUM CHLORIDE CRTAB 20 MEQ TABCR PO SCH (22:05)
[2024-06-09] MEDS: HEPARIN SOD 5,000 UNIT/0.5 ML VIAL SQ SCH (22:05)
[2024-06-09] MEDS: INSULIN ASPART PER UNIT CHARGE SC SCH (22:07)
[2024-06-09] MEDS: ERTAPENEM 1000MG 1,000 MG/10 ML SYR IV SCH (22:19)
[2024-06-10] MEDS: LEVOTHYROXINE SODIUM 88 MCG TABLET PO SCH (06:18)
[2024-06-10] MEDS: PANTOprazole 40 MG TAB PO SCH (06:18)
[2024-06-10 06:48] LABS: Hematocrit (blood only) 27.2 % (37.0-47.0); Mean Corpuscular Hemoglobin 38.3 pg (25.0-34.0); Mean Corpuscular Hgb Conc 33.1 g/dL (32.0-36.0); Mean Corpuscular Volume 115.7 fL (80.0-100.0); Mean Platelet Volume 9.7 fL (9.4-12.4); Nucleated RBC # (auto) 0.04 K/uL (0.00-0.12); Nucleated RBC % (auto) 0.6 %; Platelet Count 276 K/uL (130-400); RDW Coefficient of Variation 14.4 % (11.5-14.5); RDW Standard Deviation 61.1 fL (36.4-46.3); Red Blood Count 2.35 M/uL (4.20-5.40); White Blood Count 7.13 K/ul (4.8-10.8)
[2024-06-10 07:13] LABS: BUN Creatinine Ratio 22.1 (10-20); Calcium 8.7 mg/dl (8.6-10.3); Creatinine Clr Calc Pharmacy 59.2 ml/min; Magnesium 1.7 mg/dl (1.7-2.4); Potassium 3.5 mmol/L (3.5-5.1)
[2024-06-10] MEDS: MAGNESIUM OXIDE 400 MG TAB PO SCH (08:29)
[2024-06-10] MEDS: SPIRONOLACTONE 12.5 MG TAB PO SCH (08:29)
[2024-06-10] MEDS: VIBEGRON 75 MG TAB PO SCH (08:29)
[2024-06-10] MEDS: FUROSEMIDE 40 MG/4 ML VIAL IV SCH (08:29)
[2024-06-10] MEDS: CHOLECALCIFEROL 25 MCG (1000 UNITS) TAB PO SCH (08:29)
[2024-06-10] MEDS: CYANOCOBALAMIN (B-12) 500 MCG TABLET PO SCH (08:29)
--- NOTE | 2024-06-10 08:35 | Electrocardiogram Report ---
Test Reason : Blood Pressure : */* mmHG Vent. Rate : 87 BPM Atrial Rate : 87 BPM P-R Int : 174 ms QRS Dur : 152 ms QT Int : 430 ms P-R-T Axes : 79 -58 109 degrees QTcB Int : 517 ms Atrial-sensed ventricular-paced rhythm Abnormal ECG When compared with ECG of 24-Apr-2024 17:25, Vent. rate has increased by 17 bpm Confirmed by Mak Salinas ([id number]) on 06/10/2024 8:35:04 AM Referred By: Confirmed By: Mak Salinas
--- NOTE | 2024-06-10 08:36 | Cardiology Consultation ---
Date of Consultation June 10, 2024 Assessment & Plan (1) Acute on chronic combined systolic and diastolic heart failure: (2) Severe aortic stenosis: (3) UTI (urinary tract infection): Plan Patient admitted with weakness, SOB, increased weight gain/edema and failing outpatient diuretic titration plan. Chest xray with mild pulm vascular congestion on admission. Started on IV furosemide 40 mg BID. Symptoms improving after several doses. Weight trending downward this morning when compared to home weight, per patient. Good urine outputs today. Continue furosemide 40 mg BID IV today Monitor I+O's Monitor electrolytes BP borderline low at times. Monitor. She is asymptomatic. Echo with severe , known. Previously evaluated for TAVR and deemed not a candidate for procedure. Conservative management recommended. LVEF mildly reduced at 45%. Medication management limited by hypotension. History of dilated/non ischemic cardiomyopathy with LVEF ranging 25-50% in the past. 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 Case discussed with Dr. Qureshi I spent a total of 60 minutes on the date of service in preparation, delivery, and documentation of the care provided to this patient, excluding any time spent in the performance of separately billed services. Marcela Evans PA-C Department of Cardiology, [facility] This chart was completed in part utilizing Speech Voice Recognition Software. Grammatical errors, random word insertions, pronoun errors, and incomplete sentences are an occasional consequence of this system due to software limitations, ambient noise, and hardware issues. Any formal questions or concerns about the content, text, or information contained within the body of this dictation should be directly addressed to the provider for clarification. Supervising Physician Co-Signing Physician Notes I have personally performed a history and physical examination on the patient. I have reviewed the advance practitioner's documentation, and I agree with, and take responsibility for the plan of care. 89-year-old female present to the emergency department with urinary tract infection and acute on chronic heart failure with mildly reduced left ventricular ejection fraction in the setting of severe aortic valve stenosis. Repeat echocardiogram confirms critical calcific aortic valve stenosis with mild LV systolic dysfunction. Patient recently evaluated for TAVR, however, deemed "not a candidate for procedure". Conservative management recommended at that time. Recommend continue IV diuresis with close attention to fluid balance, daily weight, GFR, and electrolytes. Antibiotics as per internal medicine. Patient has inoperable, severe calcific aortic valve stenosis. Consider referral for palliative care consultation. Abilio Qureshi DO, [facility] History of Present Illness Reason for Consultation: CHF Requesting Physician: [facility] Attending Physician: Dr. Qureshi History of Present Illness Patient is an 89 year old female, who presents to [facility] yesterday with complaints of worsening SOB, weight gain, increased edema, consistent with CHF exacerbation. Known to [facility] - Dr. Heredia/Lisa Complex history includes: 1. Aortic stenosis - severe. Valve clinic appt in Spring 2023. [place] not to be a candidate for TAVR given poor functional status, comorbidities, and needing 17/03 care. 2. Chronic systolic and diastolic CHF - Dilated cardiomyopathy with an LVEF of 30% back in 2018 with interval improvement to 50% 3. Status post biventricular pacemaker, no AICD capability 4. Mild nonobstructive CAD cardiac catheterization, 2019 5. Chronic lymphedema 6. Obesity 7. Generalized weakness 8. Recurrent UTI's Patient is followed closely by [facility] at home. Had home visit earlier this week after reporting increased SOB, weight gain of about 9 lbs, and weakness. Torsemide was increased to 80 mg BID for 3 days, started on 06/07 (normal home dose is 60 mg BID). No significant improvement or increased urination noted. Baseline weight ranging 231-232. Increased to 239 and she came to the ER. She also tried 1 dose of metolazone without significant improvement. Diagnosed with UTI as well at home, started on antibiotics but only took for 1 day prior to admission. Chest xray on admission with mild pulm vascular congestion. since admission, patient started on IV furosemide 40 mg BID. Weight this morning was 236. Urine output not measured yesterday per review of records. THus far today, Good urine output noted at 2.3 L Echo revealed severe (known), mild decline in LVEF at 45%. HS troponin not significnatly elevated. no chest pain reported. At time of consult, patient resting in bed eating her breakfast and reports "feeling good". Reports her SOB has improved since admission. No orthopnea, PND. Edema remains about the same. Chronic lymphedema noted. Allergies Allergy/AdvReac Type Severity Reaction Status Date / Time aspirin Allergy Intermediate Hives, Verified 04/24/24 15:39 shortness of breath ibuprofen Allergy Intermediate Rash, hives Verified 04/24/24 15:39 Penicillins Allergy Intermediate Rash, hives Verified 04/24/24 15:39 adhesive Allergy Mild Reddened Verified 04/24/24 15:39 and sore skin morphine AdvReac Severe BLACKED OUT Verified 04/24/24 15:39 ciprofloxacin AdvReac Intermediate DIZZINESS/H Verified 04/24/24 15:39 OARSE/DISOR IENTED sulfamethoxazole AdvReac Intermediate NAUSEA/VOMI Verified 04/24/24 15:39 [From Bactrim] TING/DIZZIN ESS trimethoprim [From Bactrim] AdvReac Intermediate NAUSEA/VOMI Verified 04/24/24 15:39 TING/DIZZIN ESS prednisone AdvReac Mild CONFUSION/BLURRED Verified 04/24/24 15:39 VISION/WEAKNESS Home Medications Medication Instructions Recorded Confirmed Type d-mannose 500 mg capsule 1,000 mg PO AMPM 10/22/22 06/09/24 History mirabegron 25 mg tablet,extended 25 mg PO QAM 10/22/22 06/09/24 History release 24 hr (Myrbetriq) omeprazole 20 mg capsule,delayed 20 mg PO DAILYBB 10/22/22 06/09/24 History release spironolactone 25 mg tablet 12.5 mg PO QAM 10/22/22 06/09/24 History (Aldactone) bisacodyl 5 mg tablet,delayed 10 mg PO DAILY PRN Constipation 03/21/23 06/09/24 History release (Dulcolax (bisacodyl)) cholecalciferol (vitamin D3) 25 1,000 unit PO QAM 03/21/23 06/09/24 History mcg (1,000 unit) capsule colchicine 0.6 mg tablet 0.6 mg PO BID PRN gout attacks 03/21/23 06/09/24 History cyanocobalamin (vitamin B-12) 1,000 mcg PO QAM 03/21/23 06/09/24 History 1,000 mcg tablet (Vitamin B-12) dulaglutide 0.75 mg/0.5 mL 0.75 mg subcut WK 03/21/23 06/09/24 History subcutaneous pen injector (Trulicity) glucosamine-chondroitin 500 mg-400 1 tab PO AMPM 03/21/23 06/09/24 History mg tablet levothyroxine 88 mcg tablet 88 mcg PO DAILYBB 03/21/23 06/09/24 History magnesium oxide 400 mg (241.3 mg 400 mg PO DAILY 03/21/23 06/09/24 History magnesium) tablet meclizine 25 mg tablet 25 mg PO TID PRN Dizziness 03/21/23 06/09/24 History potassium chloride 20 mEq 20 meq PO AMHS 03/21/23 06/09/24 History tablet,extended release(part/cryst) promethazine-DM 6.25 mg-15 mg/5 mL 5 ml PO QID PRN persistant cough 03/21/23 06/09/24 History oral syrup benzonatate 100 mg capsule 100 mg PO TID PRN Cough 12/09/23 06/09/24 History conjugated estrogens 0.625 mg/gram 1 applic vaginal HS 12/09/23 06/09/24 History vaginal cream (Premarin) docusate sodium 100 mg capsule 300 mg PO BID 12/09/23 06/09/24 History metolazone 2.5 mg tablet 2.5 mg PO DAILY PRN FLUID 12/09/23 06/09/24 History RETENTION/LAST RESORT ondansetron HCl 4 mg tablet 4 mg PO Q6H PRN NAUSEA/VOMITING 12/09/23 06/09/24 History metoprolol succinate 25 mg 25 mg PO QPM #30 tabs 12/17/23 06/09/24 Rx tablet,extended release 24 hr diclofenac sodium 1 % topical gel 2 g topical TID KNEE PAIN 04/24/24 06/09/24 History nitrofurantoin 100 mg PO HS 04/24/24 06/09/24 History monohydrate/macrocrystals 100 mg capsule nystatin 100,000 unit/gram topical 1 applic topical BID PRN UNDER 04/24/24 06/09/24 History powder BREASTS/ABD FOLDS NEEDED phenazopyridine 100 mg tablet 100 mg PO TID PRN BLADDER PAIN 04/24/24 06/09/24 History torsemide 20 mg tablet 60 mg PO BID17 04/24/24 06/09/24 History Patient History Medical History Dizziness Lactic acidemia Acute UTI Hypoxia Pneumonia Surgical History History of hysterectomy Hx of cholecystectomy Family History Other Diabetes Heart disease Hypertension Social History Smoking Status: Never smoker Second Hand Exposure: No; Do You Dip or Chew Tobacco: No; Tobacco Cessation Education Requested by Patient: No Hx Alcohol Use: No Hx Substance Use: No Preferred Language: Maori Communication Ability: Effective Gyro Mechanic Required: No Beliefs That Will Affect Care: None marital status: / Current Living Situation: Family Current Living Situation Comment: caregivers current occupational status: retired How many Children do You have: 1 Other Information That Helps Us Care for You: No Feels Safe at Home: Yes Safety Concerns: Feels Safe At This Time Assistive Devices: Glasses, Oxygen - at Night and Walker Review of Systems Review of Systems: All systems reviewed & are unremarkable except as noted in HPI & below Physical Exam Constitutional: WD/WN, vitals as above + morbidly obese; no acute distress Neck: + thick neck Respiratory: normal respiratory effort; no labored breathing Auscultation: + diminished lung sounds; no rales and no rhonchi Cardiovascular: Rate/Rhythm: regular rate and regular rhythm Heart Sounds: + murmur (III/ systolic murmur LSB) Vessels: + JVD Extremities: + edema (Chronic lymphedema noted b/l) Neurologic: PERRL, EOMI, accommodation nl, no face palsy, no dysarthria Results & Data Vital Signs (Past 12 Hours) Vital Signs Temp Pulse Pulse Resp BP Pulse Ox O2 Del Method 06/10/24 07:36 36.6 C 59 L 20 90/54 L 97 Nasal Cannula 06/10/24 07:32 Nasal Cannula 06/10/24 04:30 36.4 C L 65 20 102/63 100 Nasal Cannula 06/10/24 01:34 67 06/10/24 00:47 36.6 C 68 20 109/68 100 Nasal Cannula 06/10/24 00:39 36.6 C 73 18 158/99 H 96 Nasal Cannula 06/09/24 21:16 68 20 121/56 L 97 Nasal Cannula O2 Flow Rate 06/10/24 07:36 3 06/10/24 07:32 3 06/10/24 04:30 3 06/10/24 01:34 06/10/24 00:47 3 06/10/24 00:39 2 06/09/24 21:16 2 Laboratory Results Cardiac Enzymes 06/09/24 Range/Units 16:57 AST 13 (13-39) U/L Troponin I High Sens 15.9 H (0-14) pg/ml B-Natriuretic Peptide 437 H (0-100) pg/ml Coagulation 06/09/24 Range/Units 16:57 B-Natriuretic Peptide 437 H (0-100) pg/ml CBC 06/09/24 06/10/24 Range/Units 16:57 06:22 WBC 7.66 7.13 (4.8-10.8) K/ul RBC 2.73 L 2.35 L (4.20-5.40) M/uL Hgb 10.3 L 9.0 L (12.0-16.0) g/dl Hct 31.5 L 27.2 L (37.0-47.0) % Plt Count 327 276 (130-400) K/uL Neut # (Auto) 4.27 (1.40-6.50) K/uL Lymph # (Auto) 2.30 (1.20-3.40) K/uL [place] # (Auto) 0.95 H (0.11-0.59) K/uL Eos # (Auto) 0.06 (0.00-0.50) K/uL Baso # (Auto) 0.06 (0.00-0.20) K/uL Comprehensive Metabolic Panel 06/09/24 06/10/24 Range/Units 16:57 06:22 Sodium 138 141 (136-145) mmol/L Potassium 3.8 3.5 (3.5-5.1) mmol/L Chloride 99 103 (98-107) mmol/L Carbon Dioxide 30 33 H (21-32) mmol/L BUN 20 17 (6-23) mg/dl Creatinine 0.99 0.77 (0.6-1.2) mg/dl Glucose 222 H 143 H (70-99(Fasting)) mg/dl Calcium 8.9 8.7 (8.6-10.3) mg/dl AST 13 (13-39) U/L ALT 7 (7-52) U/L Alkaline Phosphatase 80 (34-104) U/L Total Protein 7.6 (6.0-8.3) gm/dl Albumin 3.9 (3.4-5.0) gm/dl Intake and Output 06/09/24 06/10/24 06/10/24 22:59 06:59 14:59 Intake Total 100 / 100 Output Total 1350 / 2300 950 / 2300 Balance -1350 / -2200 -850 / -2200 Intake: Oral 100 / 100 Output: Urine Amount (Catheter) 1350 / 2300 950 / 2300 [place]/Indwelling 1350 / 2300 950 / 2300 Other: Weight 113 kg 107.3 kg Weight Measurement Method Built in [facility] Diagnostic Findings Telemetry reviewed: Ventricular paced in the 60's EKG reviewed from 06/09/24: Atrial sensed, ventricular paced rhythm at 87 bmp Echo report from today reviewed: Compared with prior study in February 2023, LV systolic function has mildly declined LVEF 45-50% Moderate concentric LVH Base and mid inferior andrews are hypokinetic Base and posterior wall is hypokinetic severe calcific aortic stenosis Mild AI Mild MR Chest xray reviewed from admission: IMPRESSION: 1. Cardiomegaly with pulmonary vascular congestion. 2. Probable trace pleural effusions with left basilar atelectasis. Prior outside data reviewed: Device interrogation reviewed from May 25, 2024: appropriate function and battery longevity at 1.58 years 0 arrhythmias noted. Optivol status within normal limits Medications Administered Current Inpatient Medications Acetaminophen (Acetaminophen 325 Mg Tab) 650 mg PO Q4H PRN PRN Reason: Pain or Fever Stop: 07/09/24 21:33 Cyanocobalamin (Cyanocobalamin (B-12) 500 Mcg Tablet) 1,000 mcg PO QAM BRENT Stop: 07/10/24 08:59 Last Admin: 06/10/24 08:29 Dose: 1,000 mcg Dextrose (Dextrose 50% 50 Ml Syringe) 25 - 50 ml IV UD PRN; Protocol PRN Reason: Hypoglycemia Protocol Stop: 07/09/24 21:33 Diclofenac Sodium (Diclofenac Sod 1% Gel 100 Gm Tube) 2 gm EXT TID PRN; Protocol PRN Reason: pain Stop: 07/09/24 21:33 Docusate Sodium (Docusate Sodium 100 Mg Cap) 200 mg PO BID BRENT Stop: 07/09/24 21:33 Last Admin: 06/10/24 08:29 Dose: 200 mg Estrogens Conjugated (Premarin Vag Crm 14 Appln/30 Gm Tube) 1 appln PV HS BRENT Stop: 07/09/24 21:33 Last Admin: 06/09/24 22:04 Dose: 1 appln Furosemide (Furosemide 40 Mg/4 Ml Vial) 40 mg IV BID BRENT Stop: 07/10/24 08:59 Last Admin: 06/10/24 08:29 Dose: 40 mg Glucagon (Glucagon For Inj 1 Mg Vial) 1 mg SQ UD PRN; Protocol PRN Reason: Hypoglycemia Protocol Stop: 07/09/24 21:33 Glucose (Glucose 40% Gel 15 Gm Tube) 15 - 30 gm PO UD PRN; Protocol PRN Reason: Hypoglycemia Protocol Stop: 07/09/24 21:33 Glucose (Glucose 10 Tab/Tube) 4 - 8 tab PO UD PRN; Protocol PRN Reason: Hypoglycemia Treatment Stop: 07/09/24 21:33 Heparin Sodium (Porcine) (Heparin Sod 5,000 Unit/0.5 Ml Vial) 5,000 units SQ Q12 BRENT Stop: 07/09/24 21:33 Last Admin: 06/10/24 08:29 Dose: 5,000 units Ertapenem (Invanz 1000mg) 1,000 mg in 10 mls @ 2 mls/min IV Q24H BRENT Stop: 06/19/24 21:44 Last Admin: 06/09/24 22:19 Dose: 2 mls/min Insulin Aspart (Insulin Aspart Per Unit Charge) 0 units SC ACHS BRENT Stop: 07/09/24 21:33 Last Admin: 06/09/24 22:07 Dose: Not Given Levothyroxine Sodium (Levothyroxine Sodium 88 Mcg Tablet) 88 mcg PO DAILYBB BRENT Stop: 07/10/24 06:29 Last Admin: 06/10/24 06:18 Dose: 88 mcg Magnesium Oxide (Magnesium Oxide 400 Mg Tab) 400 mg PO DAILY BRENT Stop: 07/10/24 08:59 Last Admin: 06/10/24 08:29 Dose: 400 mg Metoprolol Succinate (Metoprolol Succ 25mg Ext Rel Tab) 25 mg PO QPM BRENT Stop: 07/09/24 21:33 Last Admin: 06/09/24 22:05 Dose: 25 mg Miscellaneous (Carbohydrates For Hypoglycemia ) 15 - 30 gm PO UD PRN PRN Reason: Hypoglycemia Protocol Stop: 07/09/24 21:33 Ondansetron HCl (Ondansetron Inj 2 Mg/Ml 2 Ml Vial) 4 mg IV Q6H PRN PRN Reason: Nausea Stop: 07/09/24 21:33 Pantoprazole Sodium (Pantoprazole 40 Mg Tab) 40 mg PO DAILYBB BRENT Stop: 07/10/24 06:29 Last Admin: 06/10/24 06:18 Dose: 40 mg Polyethylene Glycol (Polyethylene (Miralax) 17 Gm Pack) 17 gm PO DAILY PRN PRN Reason: Constipation Stop: 07/09/24 21:33 Potassium Chloride (Potassium Chloride Crtab 20 Meq Tabcr) 20 meq PO AMHS BRENT Stop: 07/09/24 21:33 Last Admin: 06/10/24 08:29 Dose: 20 meq Spironolactone (Spironolactone 12.5 Mg Tab) 12.5 mg PO QAM BRENT Stop: 07/10/24 08:59 Last Admin: 06/10/24 08:29 Dose: 12.5 mg Vibegron (Vibegron 75 Mg Tab) 75 mg PO DAILY BRENT Stop: 07/10/24 08:59 Last Admin: 06/10/24 08:29 Dose: 75 mg Vitamin D (Cholecalciferol 25 Mcg (1000 Units) Tab) 25 mcg PO QAM [facility] Stop: 07/10/24 08:59 Last Admin: 06/10/24 08:29 Dose: 25 mcg (3) UTI (urinary tract infection) Hematuria presence: without hematuria Urinary tract infection type: acute cystitis Qualified Code(s): N30.00 - Acute cystitis without hematuria
--- OUTSIDE RECORDS SUMMARY | 2024-06-10 12:47 | External Medical Summary | Summary of Care ---
Author Name Unknown Organization [facility] Address [address] [place] [address] Phone [phone] Care Team Providers Care Slabbing Machine Operator Name Role Phone Verónica Benavides MD Primary Care Provide r Encounter Details Date Type Department Care Team (Late st Contact Info) Description 06/08/2024 12:30 PM EDT [facility] [address] [facility] [place] [address] Marija Londono, RN [address] [facility] [place] [address] Allergies Active Allergy Reactions Criticality Noted Date Comments Adhesive Tape Medium 01/30/2022 Ibuprofen Hives 01/13/2012 Aspirin Hives,Rash 09/15/2000 Sulfamethoxazole-Trimeth oprim Nausea/vomiting,Othe r (Please comment) 10/27/2020 Dizziness Ciprofloxacin Hcl 06/16/2019 Hoarse, dizzy,disoriented Morphine 09/21/2021 Blacked out Penicillins Hives,Rash 09/15/2000 Prednisone 12/30/2017 Weakness/memory changes/blurred vision documented as of this encounter (statuses as of 06/08/2024) Medications Medication Sig Dispensed Refills Start Date End Date Status OneTouch Verio w/Device Kit Use up to 4 times a day E11.9 1 Kit 08/28/2020 Active Bisacodyl 5 MG Oral Tablet Delayed Release Take 2 Tablets by mouth daily as needed for Constipation. Do not use for more than one week. Do not cut, crush or chew 40 Tablet 1 01/24/2023 Active OneTouch Verio In Vitro Strip (Glucose Blood)Indications:Ty pe 2 diabetes mellitus with stage 3 chronic kidney disease, without long-term current use of insulin ([facility]),Type 2 diabetes mellitus with hemoglobin A1c goal of less than 8.0% ([facility]) TEST UP TO FOUR TIMES DAILY 400 Strip 1 05/30/2023 Active OneTouch Delica Plus [id number] :Type 2 diabetes mellitus with hemoglobin A1c [...] area nightly 30 g 5 07/14/2023 Active DIURETIC TITRATION PLAN If no improvement on day 3, contact [facility] for possible home visit 1 Each 11/28/2023 Active Phenazopyridine HCl 200 MG Oral Tablet (Pyridium) Take 1 Tablet by mouth 3 times a day as needed for Pain, Severe. After meals for pain with urination 6 Tablet 04/19/2024 Active D-Mannose 500 MG Oral Capsule Take 2 Tablets by mouth in the morning and 2 Tablets before bedtime. 2 caps two times daily. 120 Capsule 05/12/2024 Active Glucosamine Chondr 500 Complex Oral Capsule Take 1 Capsule by mouth in the morning and 1 Capsule before bedtime. 60 Capsule 05/12/2024 Active Magnesium Oxide 400 MG Oral Tablet Take 1 Tablet by mouth in the morning. 30 Tablet 05/12/2024 Active Polyethylene Glycol 3350 17 GM/SCOOP Oral Powder (MiraLax) Take 17 g by mouth in the morning. Dissolve one heaping tablespoon in 8 ounces of water or juice.. 255 g 05/12/2024 Active Probiotic Acidophilus BioBeads Oral Capsule Take 1 Capsule by mouth every evening. Just with antibiotics 30 Capsule 05/12/2024 Active Sennosides 8.6 MG Oral Tablet Take 2 Tablets by mouth in the morning. 60 Tablet 05/12/2024 Active Stool Softener 100 MG Oral Tablet (Docusate Sodium) Take 3 Tablets by mouth in the morning and 3 Tablets before bedtime. 120 Tablet 05/12/2024 Active Vitamin B-12 500 MCG Oral Tablet (vitamin B-12) Take 1 Tablet by mouth in the morning. 30 Tablet 05/12/2024 Active Vitamin D-3 25 MCG (1000 UT) Oral Capsule Take 1 Capsule by mouth in the morning. 30 Capsule 05/12/2024 Active Potassium Chloride Laura ER 20 MEQ Oral Tablet Extended Release Take 1 Tablet by mouth 2 times a day with morning and evening meals. 180 Tablet 1 05/12/2024 Active Ondansetron HCl 4 MG Oral Tablet Take 1 Tablet by mouth every 6 hours as needed for Nausea. 20 Tablet 05/12/2024 Active Meclizine HCl 25 MG Oral Tablet (Antivert)Indication s:Vertigo Take 1 tablet by mouth 3 times a day as needed for dizziness 30 Tablet 5 05/12/2024 Active Spironolactone 25 MG Oral Tablet (Aldactone)Indicatio ns:Non-ischemic cardiomyopathy (HCC) Take 0.5 Tablets by mouth in the morning. 45 Tablet 3 05/12/2024 Active Diclofenac Sodium 1 % External Gel (Voltaren) Apply topically to affected area 3 times a day as needed for Pain, Mild. 50 g 05/12/2024 Active Omeprazole 20 MG Oral Capsule Delayed Release (PriLOSEC) Take 1 Capsule by mouth in the morning. One hour before the first meal of the day.. 90 Capsule 05/12/2024 Active Levothyroxine Sodium 88 MCG Oral Tablet (Levoxyl)Indications :Hypothyroidism, unspecified type Take 1 Tablet by mouth daily first thing in the morning. 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 90 Tablet 1 05/12/2024 Active Mirabegron ER 25 MG Oral Tablet Extended Release 24 Hour (Myrbetriq) Take 1 Tablet by mouth in the morning. 90 Tablet 05/12/2024 Active Colchicine 0.6 MG Oral Tablet Take 1 Tablet by mouth 2 times a day as needed (GOUT). Active Promethazine-DM 6.25-15 MG/5ML Oral Syrup Take by mouth 4 times a day as needed for Cough. Active Nitrofurantoin Monohyd Macro 100 MG Oral Capsule (Macrobid) Take 1 Capsule by mouth every night at bedtime. 05/21/2024 Active Torsemide 20 MG Oral Tablet (Demadex)Indications :Heart failure, systolic, due to idiopathic cardiomyopathy (HCC) Take 3 Tablets by mouth in the morning and 3 Tablets in the evening. 05/21/2024 Active Clotrimazole 1 % External Cream (Lotrimin)Indication s:Candidal intertrigo APPLY TO THE AFFECTED AREA(S) TWICE DAILY FOR FOURTEEN DAYS 60 g 2 05/25/2024 Active Trulicity 0.75 MG/0.5ML Subcutaneous Solution Pen-injector (Dulaglutide) Inject 0.75 mg under the skin once a week. 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 Urine still is cloudy. It is possible that the UTI persists. Will do an infectious workup. -BMP, CBC, UA, stool studies Impaired mobility and ADLs 11/12/2022 Ventral hernia [...] Type 2 diabetes mellitus wit h stage 3b chronic kidney disease, without long-term current use [...] as of this encounter (statuses as of 06/08/2024) Resolved Problems Problem Noted Date Diagnosed Date Resolved Date Acute cystitis without hematuria 01/24/2023 03/22/2024 Last Assessment & Plan: Pt symptomatic with weakness, dysuria, some nausea, murky urine -Will increase and extend keflex Bilateral impacted cerumen 11/29/2022 0 05/05/2024 Last Assessment & Plan: Attempted question ears today with minimal success -prescription for Colace liquid. Ten drops to ears bilaterally daily. Allowed to sit for at least 30 minutes. Flush years afterwards with warm water. Constipation 11/29/2022 03/22/2024 Last Assessment & Plan: [...] as of this encounter (statuses as of 06/08/2024) Immunizations Name Administration Dates Next Due COVID-19 mRNA, LNP-s, No Pre serve, 2-Dose Series (PostalGuard) 08/29/2021,10/23/2020,10/02/2020 COVID-19, MRNA-LNP, 23-24, P F, 30 MCG/0.3 mL, 12 YRS AND ABOVE, IM ([facility]) 08/04/2023 Covid-19, Mrna, Lnp-s, Pf, B ivalent, 30 Mcg, IM, 12 yrs and above (PostalGuard) 08/02/2022 Pneumococcal Conjugate Vacc, 13 Valent (Prevnar) 09/11/2015 Pneumococcal Polysaccharide PPV23 (Pneumovax) 05/25/2008,06/23/2001 Season Influenza, Quad, PF, Adjuvanted, 65+ Yrs, IM (FLUAD) 06/06/2020 Seasonal Influenza Vac., MDV , IM, 0.5 mL (Fluzone) 04/22/2014,05/17/2013,04/29/2012,06/21,05/27/2010,05/31/2009,07/01/2008 ,06/16/2007,08/08/2006 Seasonal Influenza Virus Vac cine, Unspecified Formulation 06/04/2019,04/30/2018,06/05/2017,05/25,05/23/2017,08/12/2016,04/22/2014 ,05/17/2013,04/29/2012,06/21/2011,10/2009,05/31/2009,07/01/2008, 7,08/08/2006,06/21/2005,07/05/2003,06/2002,06/23/2001,08/07/2000 Seasonal Influenza, PF, 6 M & above, IM , (FluLaval or Fluzone) 06/04/2019,04/30/2018 Seasonal Influenza, Quadriva lent Hd (Fluzone Hd) 06/20/2022,06/29/2021 Seasonal Influenza, Quadriva lent, No Preserve, IM 05/25/2017,08/12/2016,07/28/2015 TD - Tetanus/Diptheria (ADULT) 03/29/2008 TD, Preservative [...] Sign Reading Time Taken Comments Blood Pressure 108/52 06/08/2024 1:49 PM EDT left forearm sitting Pulse 75 06/08/2024 1:49 PM EDT Temperature 37.6 C (99.7 F) 06/08/2024 1 :49 PM EDT Respiratory Rate 20 06/08/2024 1:49 PM EDT Oxygen Saturation 92% 06/08/2024 1:4 9 PM EDT RA Inhaled Oxygen Concentration - - Weight - - Height - - Body Mass Index - - documented in this encounter Progress Notes * Marija Londono RN - 06/08/2024 1:57 PM EDT Current Concerns: Pt seen for acute visit -- dtr called in reporting weight gain, increased SOB, feels pt is fluid overloaded Arrived to home and pt resting in recliner chair with legs elevated + increased SOB with talking Chronic lymphedema, feels worse than normal- pt unsure but dtr thinks pt is having more difficulty walking d/t heavy legs + abd fullness Pt denies pain or acute distress UA shows Prelim culture results show: >100,000 colonies/mL Non lactose fermenting gram negative bacilli Dtr reported increased confusion, weakness and decreased urine output which are her typical signs of UTI She did start DTP yesterday but does not feel it has helped and has not increased urinary output Per [facility] recommendations, attempted to get IV access and labwork. Unable to obtain either after attempt x3 to b/l AC and right hand. MD notified - ok to give Ceftriaxone IM 1 gram - administered in left dorsogluteal, pt tolerated well Mobile lab contacted to get labs that have been ordered. They do come to area on Wednesdays and Fridays but do not think they can collect them until Friday Intake ordering CXR RNCM visit arranged for tomorrow for further assessment and another attempt at IV access Proper team members notified Physical Exam: Physical Exam Constitutional: General: She is not in acute distress. Appearance: She is obese. Cardiovascular: Rate and Rhythm: Normal rate and regular rhythm. Pulses: Normal pulses. Heart sounds: Normal heart sounds. Pulmonary: Effort: Pulmonary effort is normal. Comments: B/l lobes diminished Neurological: Mental Status: She is alert. Review of Systems: Review of Systems Constitutional: Positive for fatigue. Respiratory: Positive for cough (dry) and shortness of breath. Cardiovascular: Positive for leg swelling. Gastrointestinal: Positive for abdominal distention. Genitourinary: Negative. Musculoskeletal: Positive for arthralgias and gait problem. Care Plan Goal Progress: Orders Placed: No orders of the defined types were placed in this encounter. Medications Given: Administrations This Visit cefTRIAXone (Rocephin) inj 1 g Admin Date 06/08/2024 Action Given Dose 1 g Route IV Push Documented By Marija Londono, RN Care Gaps: Care Gaps Care gaps closed this contact:: Education;Home based procedures;Medications;Plan of Care (POC) (06/08/241742) Type of education: Clinical/disease (06/08/241742) Procedure performed: IM injection (06/08/241742) Type of medication care gap: Medication optimization (06/08/241742) Type of plan of care (POC) care gap: Education and review of exacerbation plan (06/08/241742) documented in this encounter Plan of Treatment Upcoming Encounters Date Type Department Care Team (Late st Contact Info) Description 2024 10:00 AM EDT Scheduled Telephone [facility] [address] [place] [address] Coordinator, [facility] [address] [place] [address] 2024 11:30 AM EDT Home Visit [facility], [facility] [address] [place] [id number] Destiny Schultz, POPPY [address] [place] [address] 06/10/2024 10:45 AM EDT Scheduled Telephone [facility], [facility] [address] [place] [address] Coordinator, [facility] [address] [place] [address] 06/11/2024 4:00 PM EDT [facility] [address] [place] [address] Destiny Schultz, POPPY [address] [place] [address] 10/01/2024 1:00 PM EST Telemedicine Family Medicine [address] [place] [phone] Kusum Jones [address] [place] [address] 10/13/2024 11:30 AM EST Telemedicine Urology, [facility] [place] [address] Chandler Pena MD [address] [place] [address] 11/24/2024 1:40 PM EDT Office Visit Dermatology [address] [place] [address] Sheryl Pena PA-C [address] [place] [address] [place] [address] 04/18/2025 1:20 PM EDT Telemedicine Family Medicine [address] [place] [phone] Verónica Benavides MD [address] [place] [address] [place] [id number] Health Maintenance Due Date Last Done Comments Zoster Vaccines (1 of 2) 1985 Adult Wellness Visit 09/11/2016 09/11/2015 DXA Scan 04/02/2020 04/02/2017, 12/24, 11/05/2007 Depression Screening 05/24/2020 05/24/2019 Diabetic Foot Exam 11/08/2020 11/09/2019, 0 09/01/2018, 08/28/2017, Additional history exists DTap/Tdap Vaccines (2 - Td or Tdap) 11/16/2023 11/15/2013, 03/29/2008, 03/29/2008 Diabetic Eye Exam 12/22/2023 12/21/2022, , 03/10/2021, Additional history exists COVID-19 Vaccine ( season) 2024 08/04/2023, 08/04/2023, 08/02/2022, Additional history exists Influenza Vaccine (FLU shot) (#1) 2024 06/20/2022, 06/20/2022, 06/29/2021, Additional history exists HbA1c 10/03/2024 04/02/2024, 01/24, 11/01/2022, Additional history exists TSH 04/02/2025 04/02/2024, 08/0 08/2022, 02/24/2023, Additional history exists Albumin/Creatinine Ratio 04/19/202504/19/2 024, 02/07/2023, 01/18/2022, Additional history exists CKD PHOS USE SMARTSET 05857 05/05/202504/25, 04/30/2024, 04/02/2024, Additional history exists CKD HGB USE SMARTSET 52740 05/26/202505/26, 05/26/2024, 05/07/2024, Additional history exists Pneumococcal Vaccine: 65+ Years [...] Not on filedocumented as of this encounter Administered Medications Inactive Administered Medications - up to 3 most recent administrations Medication Order MAR Action Action Date Dose Rate Site cefTRIAXone (Rocephin) inj 1 g 1 g, IV Push, ONCE, On Fri06/08/24 at 1315, For 1 dose Given 06/08/2024 5:44 PM EDT 1 g Dorsogluteal Left documented in this encounter Advance Directives Documents on File Type Date Recorded 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
--- OUTSIDE RECORDS SUMMARY | 2024-06-10 12:47 | External Medical Summary | Summary of Care ---
Author Name Unknown Organization [facility] Address [address] [place] [address] Phone [phone] Care Team Providers Care Overnight Stocker Name Role Phone Verónica Benavides MD Primary Care Provide r Reason for Visit * Reason Onset Date Comments [facility]: Acute 06/08/2024 Encounter Details Date Type Department Care Team (Latest Contact Info) Description 06/08/2024 11:45 AM EDT Scheduled Telephone [facility], [facility] [address] [facility] [place] [address] Coordinator, [facility] [address] [facility] [place] [address] 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)*; Recurrent UTI (urinary tract infection) Allergies Active Allergy Reactions Criticality Noted Date Comments Adhesive Tape Medium 01/30/2022 Ibuprofen Hives 01/13/2012 Aspirin Hives,Rash 09/15/2000 Sulfamethoxazole-Trimeth oprim Nausea/vomiting,Othe r (Please comment) 10/27/2020 Dizziness Ciprofloxacin Hcl 06/16/2019 Hoarse, dizzy,disoriented Morphine 09/21/2021 Blacked out Penicillins Hives,Rash 09/15/2000 Prednisone 12/30/2017 Weakness/memory changes/blurred vision documented as of this encounter (statuses as of 06/08/2024) Medications Medication Sig Dispensed Refills Start Date End Date Status [employer] ProductsTouch Verio w/Device Kit Use up to 4 times a day E11.9 1 Kit 08/28/2020 Active Bisacodyl 5 MG Oral Tablet Delayed Release Take 2 Tablets by mouth daily as needed for Constipation. Do not use for more than one week. Do not cut, crush or chew 40 Tablet 1 01/24/2023 Active [employer] Products[employer] VerTinkoff Digital In Vitro Strip (Glucose Blood)Indications:Ty pe 2 diabetes mellitus with stage 3 chronic kidney disease, without long-term current use of insulin (HCC),Type 2 diabetes mellitus with hemoglobin A1c goal of less than 8.0% ([facility]) TEST UP TO FOUR TIMES DAILY 400 Strip 1 05/30/2023 Active [employer] Products[employer] Delica Plus [id number] :Type 2 diabetes mellitus with hemoglobin A1c goal of less than 8.0% ([facility]) Test up to two times daily or as directed by [facility] pharmacist 200 Each 3 07/11/2023 Active [...] needed for Pain, Mild. 50 g 3 05/12/2024 Active Omeprazole 20 MG Oral Capsule Delayed Release (PriLOSEC) Take 1 Capsule by mouth in the morning. One hour before the first meal of the day.. 90 Capsule 1 05/12/2024 Active Levothyroxine Sodium 88 MCG Oral Tablet (Levoxyl)Indications :Hypothyroidism, unspecified type Take 1 Tablet by mouth daily first thing in the morning. (at least 30 min prior to breakfast or other meds) 90 Tablet 3 05/12/2024 Active Metoprolol Succinate ER 25 MG Oral Tablet Extended Release 24 Hour (toPROL XL)Indications:Non-i schemic cardiomyopathy (HCC),Coronary artery disease involving [place] coronary artery of [place] heart without angina pectoris,HTN, goal below 140/90 Take 1 Tablet by mouth every evening. 90 Tablet 1 05/12/2024 Active Mirabegron ER 25 MG Oral Tablet Extended Release 24 Hour (Myrbetriq) Take 1 Tablet by mouth in the morning. 90 Tablet 3 05/12/2024 Active Colchicine 0.6 MG Oral Tablet [...] infection) 1 g IV PUSH ONCE 06/08/2024 2024 Active documented as of this encounter (statuses [...] Continue synthroid Coronary artery disease invo lving [place] coronary artery of [place] heart without angina pectoris 07/03/2012 Overview: 60% [...] mRNA, LNP-s, No Pre serve, 2-Dose Series (Infinite [employer]) 08/29/2021,10/23/2020,10/02/2020 COVID-19, MRNA-LNP, 23-24, P F, 30 MCG/0.3 mL, 12 YRS AND ABOVE, IM ([employer]-Comirnat) 08/04/2023 Covid-19, Mrna, Lnp-s, Pf, B ivalent, 30 Mcg, IM, 12 yrs and above ([employer]) 08/02/2022 Influenza, Whole Virus 08/07/2000 Pneumococcal Conjugate Vacc, 13 Valent (Prevnar) 09/11/2015 Pneumococcal Polysaccharide PPV23 (Pneumovax) 05/25/2008,06/23/2001 Season Influenza, Quad, PF, Adjuvanted, 65+ Yrs, IM (FLUAD) 06/06/2020 Seasonal Influenza Vac., MDV , IM, 0.5 mL (Fluzone) 04/22/2014,05/17/2013,04/29/2012,06/21,05/27/2010,05/31/2009,07/01/2008 ,06/16/2007,08/08/2006,06/21/2005,06/25,07/05/2002,06/23/2001 Seasonal Influenza Virus Vac cine, Unspecified Formulation [...] Telephone Encounter - Angie Lin RN - 06/08/2024 1:19 PM EDT Images from the original note were not included. Phone call to daughter Josselyn, made aware of [facility] orders/recommendations. She verbalized understanding. PC placed to [employer], spoke to Maria Antonia-verbal order given for CXR-2 views, to be done today if possible. Claim # [id number] She requests order be faxed to [phone], faxed to same as requested. Fax delivered: Follow up phone calls scheduled Angie BURNS, RN [facility] presser automatic Navigator * Addendum Note - Karthikeyan Chaudhari DO - 06/08/2024 12:45 PM EDTAddended by: KARTHIKEYAN CHAUDHARI on: 06/08/2024 12:45 PM Modules accepted: Orders * Telephone Encounter - Karthikeyan Chaudhari DO - 06/08/2024 12:41 PM EDT [facility] QuickNote Recommendations: Agree with diuresis - orders placed for meds + labs/chest x-ray Would still wait on urine cx ultimately as I'm not convinced this is a true UTI - I don't see UA from specimen and I very very strongly it not be ordered this way moving forward as well as do not take responsibility for results as I did not order nor did I agree with ordering it. With that said, since threat of ED eval, will give 1g CTX but do not recommend more antibiotics at this time. Orders: Plan CBC with WBC Differential BNP, NT-PRO Comprehensive Metabolic Panel Magnesium XR Chest 2 Views Furosemide (Lasix) inj 200 mg To Do: Please see below for follow up items to be completed and correspondence: FYI to Regla's Care Team Karthikeyan Chaudhari DO [facility] - [facility] 06/08/2024 Scheduled appointments in the next 60 days: Future Appointments-next 60 days Date/Time Provider Specialty Dept Phone 2024 10:00 AM Lise Connell [facility] [phone] 06/11/2024 4:00 PM Destiny Schultz, POPPY [facility] [phone] 10/01/2024 1:00 PM Kusum Jones CRNP Family Medicine [phone] 10/13/2024 11:30 AM Chandler Pena MD Urology [phone] 11/24/2024 1:40 PM (Arrive by 1:25 PM) Sheryl Pena PA-C Dermatology [phone] 04/18/2025 1:20 PM Verónica Benavides MD Family Medicine [phone] * Telephone Encounter - Angie Lin RN - 06/08/2024 11:56 AM EDT [facility] Telephonic Nurse Follow-Up Call [facility] Subprogram: Primary Care at Home Follow Up Call Type: 24 hour follow up Acute issue requiring follow-up call: Other: f/u -urine, weight DTP: Torsemide 80 mg po BID x 3 days. Started 06/07. Objective: 05/17/2024 2:04 PM 04/14/2024 3:03 PM 02/20/2024 2:00 PM 02/20/2024 1:59 PM 01/08/2024 4:45 PM VITALS ACROSS ENCOUNTERS BP 118/60 112/74 136/68 136/68 104/76 Pulse 64 68 80 80 72 Weight 106.9 kg 105.1 kg 105.1 kg 108 kg BMI 44.52 kg/m2 43.8 kg/m2 43.8 kg/m2 44.97 kg/m2 Remote Patient Monitoring: NONE Oxygen Needs: NO supplemental oxygen needs identified DME Needs: NO DME needs identified Medications: Current DTP: Other: Torsemide 80 mg BID Subjective: Condition Status: Worsening of symptoms Current Concerns: Daughter calling into report weight gain from yesterday. Patient was 238. 5 lbs yesterday, todays weight 239 lbs. Daughter reports baseline weight is between 231 lbs-232 lbs. Weight on Friday 235 lbs, patient usesown home scale. Patient was instructed yesterday to increase Torsemide to 80 mg po BID x 3 days. Patient had additional dose yesterday and today. Patient is also taking Aldactone 12.5 mg daily Patient did take Metolazone last Friday but daughter does not feel patient diuresed much. She reports increased SOB, chest heaviness but denies chest pain or feeling of elephant on chest. She reports patient is also having conversational dyspnea, relief only at rest. She reports she did not even shower patient today due to effort it would take. Patient wears O2 at 3L at night, instructed to apply as needed for SOB. PT is there but does not feel it is safe to have patient participate today due to SOB and fluid overload. SPO2 94% on RA, HR-75 per therapist. PT was unable to hear BP due to fluid overload per daughter. +BLE edema, nonpitting. Patient reports abdominal bloating. Daughter did obtain urine urine and sent to lab for concerns of UTI. Patient is having less urine output, confusion, and weakness which daughter states are signs of UTI. Prelim culture results show: >100,000 colonies/mL Non lactose fermenting gram negative bacilli Daughter is questioning ED eval and would like patient assessed. Acute RNCM home visit scheduled today with Marija Londono for assessment, poss IV Lasix Disposition: Routed to [facility] and/or [facility] Care Team for further advice and RNCM visit scheduled Future Visits Scheduled: Future Appointments-next 60 days Date/Time Provider Specialty Dept Phone 2024 10:00 AM Ko, Lise Lepe [facility] [phone] 06/11/2024 4:00 PM Destiny Schultz RN [facility] [phone] 10/01/2024 1:00 PM Kusum Jones CRNP Family Medicine [phone] 10/13/2024 11:30 AM Chandler Pena MD Urology [phone] 11/24/2024 1:40 PM (Arrive by 1:25 PM) Sheryl Pena PA-C Dermatology [phone] 04/18/2025 1:20 PM Veróniac Benavides MD Family Medicine [phone] Angie Lin RN documented in this encounter Plan of Treatment Upcoming Encounters Date Type Department Care Team (Late st Contact Info) Description 2024 10:00 AM EDT Scheduled Telephone [facility], [facility] [address] [facility] [address] [place] [address] Coordinator, [facility] [address] [place] [address] 06/11/2024 4:00 PM EDT Home Visit [facility], [facility] [address] [facility] [place] [address] Destiny Schultz, POPPY [address] [facility] [place] [address] 10/01/2024 1:00 PM EST Telemedicine Family Medicine [address] [place] [phone] Kusum Jones CRNP [address] [place] [address] [place] [address] 10/13/2024 11:30 AM EST Telemedicine Urology, [facility] [address] [facility] [place] [address] Chandler Pena MD [address] [place] [address] [place] [address] 11/24/2024 1:40 PM EDT Office Visit Dermatology [address] [place] [address] Sheryl Pena PA-C [address] [place] [address] [place] [address] 04/18/2025 1:20 PM EDT Telemedicine Family Medicine [address] [place] [phone] Verónica Benavides MD [address] [place] [address] [place] [address] Scheduled Orders Name Type Priority Associated Diagnoses Orde r Schedule CBC WITH WBC DIFFERENTIAL Lab Routine 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) Expected: 06/08/2024, Expires: 07/09/2025 BNP, NT-PRO Lab Routine 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) Expected: 06/08/2024 (Approximate), Expires: 06/08/2025 COMPREHENSIVE METABOLIC PANEL Lab Routine 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) Expected: 06/08/2024, Expires: 06/08/2025 MAGNESIUM Lab Routine 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) Expected: 06/08/2024, Expires: 06/08/2025 XR CHEST 2 VIEWS Medical Imaging Routine 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) Ordered: 06/08/2024 Health Maintenance Due Date Last Done Comments [...] 04/19/2025 024, 02/07/2023, 01/18/2022, Additional history exists CKD PHOS USE SMARTSET 71356 05/05/202504/25, 04/30/2024, 04/02/2024, Additional history exists CKD HGB USE SMARTSET 48399 05/26/202505/26, 05/26/2024, 05/07/2024, Additional history exists Pneumococcal [...] as of this encounter Visit Diagnoses Diagnosis 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)- Primary Recurrent UTI (urinary tract infection) Urinary tract infection, site not specified documented in this encounter Advance Directives Documents on File Type Date Recorded Patient Building Maintenance Custodian Expl anation Advance Directives and Living Will 08/10/2021 ADVANCE DIRECTIVE / LIVING WILL LIVING WILL Healthcare Agents on File Name Relationship Healthcare Agent [facility] Communication Josselyn [facility] Child Health Care Power of Attor nathalie Care Teams Overnight Stocker Relationship Specialty Start Date End Date Verónica Benavides MD [address] [place] [address] [place] [address] PCP - General Family Medicine 09/16/14 documented as of this encounter
--- OUTSIDE RECORDS SUMMARY | 2024-06-10 12:48 | External Medical Summary | Summary of Care ---
Author Name Unknown Organization [facility] Address [address] [place] [address] Phone [phone] Care Team Providers Care Meat Products Demonstrator Name Role Phone Verónica Benavides MD Primary Care Provide r Reason for Visit * Reason Onset Date Comments [facility]: Acute 06/08/2024 Encounter Details Date Type Department Care Team (Latest Contact Info) Description 06/08/2024 11:45 AM EDT Scheduled Telephone [facility], [facility] [address] [facility] [place] [address] Coordinator, [facility] [address] [facility] [place] [address] Hypertensive heart and kidney disease with chronic [...] Dispensed Refills Start Date End Date Status [employer] Verio w/Device Kit Use up to 4 times a day E11.9 1 Kit 08/28/2020 Active Bisacodyl 5 MG Oral Tablet Delayed Release Take 2 Tablets by mouth daily as needed for Constipation. Do not use for more than one week. Do not cut, crush or chew 40 Tablet 1 01/24/2023 Active [employer] VerExecOnline In Vitro Strip (Glucose Blood)Indications:Ty pe 2 diabetes mellitus with stage 3 chronic kidney disease, without long-term current use of insulin (HCC),Type 2 diabetes mellitus with hemoglobin A1c goal of less than 8.0% ([facility]) TEST UP TO FOUR TIMES DAILY 400 Strip 1 05/30/2023 Active [employer] Delica Plus [id number] :Type 2 diabetes mellitus with hemoglobin A1c goal of less than 8.0% ([facility]) Test up to two times daily or as directed by [facility] pharmacist 200 Each 3 07/11/2023 Active [...] cardiomyopathy (HCC),Coronary artery disease involving [place] coronary artery of [place] heart without angina pectoris,HTN, goal below [...] Coronary artery disease invo lving [place] coronary artery of [place] heart without angina pectoris 07/03/2012 Overview: [...] mRNA, LNP-s, No Pre serve, 2-Dose Series (Zuli) 08/29/2021,10/23/2020,10/02/2020 COVID-19, MRNA-LNP, 23-24, P F, 30 MCG/0.3 mL, 12 YRS AND ABOVE, IM ([employer]-Comirnat) 08/04/2023 Covid-19, Mrna, Lnp-s, Pf, B ivalent, 30 Mcg, IM, 12 yrs and above (Zuli) 08/02/2022 Pneumococcal Conjugate Vacc, 13 Valent (Prevnar) [...] Lin RN - 06/08/2024 11:56 AM EDT [facility] Telephonic Nurse Follow-Up Call [place] [...] assessment, poss IV Lasix Disposition: Routed to [facility] and/or [facility] Care Team for further advice and RNCM visit scheduled Future Visits Scheduled: Future Appointments-next 60 days Date/Time Provider Specialty Dept Phone 2024 10:00 AM Coordinator, Lise Le[facility] [phone] 06/11/2024 4:00 PM Destiny Schultz, RN [facility] [phone] 10/01/2024 1:00 PM Kusum Jones CRNP Family Medicine [phone] 10/13/2024 11:30 AM Chandler Pena MD Urology [phone] 11/24/2024 1:40 PM (Arrive by 1:25 PM) Sheryl Pena PA-Antonio Dermatology [phone] 04/18/2025 1:20 PM Verónica Benavides MD Family Medicine [phone] Angie Lin RN documented in this encounter Plan of Treatment Upcoming Encounters Date Type Department Care Team (Late st Contact Info) Description 2024 10:00 AM EDT Scheduled Telephone [facility], [facility] [address] [facility] [place] [address] Coordinator, [facility] [address] [facility] [place] [address] 06/11/2024 4:00 PM EDT [facility] [address] [facility] [place] [address] Destiny Schultz RN 132 [facility] [place] [address] 10/01/2024 1:00 PM EST Telemedicine Family Medicine [address] [place] [phone] Kusum oJnes [address] [place] [address] 10/13/2024 11:30 AM EST Telemedicine Urology, [facility] [address] [place] [address] Chandler Pena MD [address] [place] [address] 11/24/2024 1:40 PM EDT Office Visit Dermatology [address] [place] [address] Sheryl Pena PA-C [address] [place] [address] [place] [address] 04/18/2025 1:20 PM EDT Telemedicine Family Medicine [address] [place] [phone] Verónica Benavides MD [address] [place] [address] [place] [address] Scheduled Orders Name Type Priority Associated Diagnoses [...] 06/29/2021, Additional history exists HbA1c 10/03/2024 04/02/2024, 06/, 11/01/2022, Additional history exists TSH 04/02/2025 04/02/2024, 080 08/2022, 02/24/2023, Additional history exists Albumin/Creatinine Ratio 04/19/2025 024, 02/07/2023, 01/18/2022, Additional history exists CKD PHOS USE SMARTSET 72390 05/05/202504/25, 04/30/2024, 04/02/2024, Additional history exists CKD HGB USE SMARTSET 94713 05/26/202505/26, 05/26/2024, 05/07/2024, Additional history exists Pneumococcal [...] Documents on File Type Date Recorded Patient Records Custodian Expl anation Advance Directives and Living Will 08/10/2021 ADVANCE DIRECTIVE / LIVING WILL LIVING WILL Healthcare Agents on File Name Relationship Healthcare Agent [facility] Communication Josselyn Judd Adult Child Health Care Power of Attor nathalie Care Teams Meat Products Demonstrator Relationship Specialty Start Date End Date Verónica Benavides MD [address] [place] [address] [place] [address] PCP - General Family Medicine 09/16/14 documented as of this encounter
--- OUTSIDE RECORDS SUMMARY | 2024-06-10 12:48 | External Medical Summary | Summary of Care ---
Author Name Unknown Organization [facility] Address [address] [place] [address] Phone [phone] Care Team Providers Care Manager Photography Name Role Phone Verónica Benavides MD Primary Care Provide r Reason for Visit * Reason Onset Date Comments Appointment 06/07/2024 Hematology Encounter Details Date Type Department Care Team (Late st Contact Info) Description 06/07/2024 Telephone Family [address] [phone] Verónica Benavides MD [address] [place] [address] [place] [address] Appointment (Hematology ) Allergies Active Allergy Reactions Criticality Noted Date Comments Adhesive Tape Medium 01/30/2022 Ibuprofen Hives 01/13/2012 Aspirin Hives,Rash 09/15/2000 Sulfamethoxazole-Trimeth oprim Nausea/vomiting,Othe r (Please comment) 10/27/2020 Dizziness Ciprofloxacin Hcl 06/16/2019 Hoarse, dizzy,disoriented Morphine 09/21/2021 Blacked out Penicillins Hives,Rash 09/15/2000 Prednisone 12/30/2017 Weakness/memory changes/blurred vision documented as of this encounter (statuses as of 06/07/2024) Medications Medication Sig Dispensed Refills Start Date [...] Strip 1 05/30/2023 Active OneTouch Delica Plus [id number] :Type 2 diabetes mellitus with hemoglobin A1c goal of less than 8.0% ([facility]) Test up to two times daily or as directed by [facility] pharmacist 200 Each 3 07/11/2023 Active Estrogens Conjugated 0.625 MG/GM Vaginal Cream (Premarin) Administer 0.5 g into the vagina every night at bedtime. Pea-sized amount around vulvar area nightly 30 g 5 07/14/2023 Active DIURETIC TITRATION PLAN If no improvement on day 3, contact [facility] for possible home visit 1 [...] XL)Indications:Non-i schemic cardiomyopathy (HCC),Coronary artery disease involving nightmute coronary artery of nightmute heart without angina pectoris,HTN, goal below 140/90 [...] a week. 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..] encounter Miscellaneous Notes * Telephone Encounter - Kathe Carrion LPN - 06/07/2024 1:48 PM EDT Please see New Patient Triage encounter 06/07/2024 * Telephone Encounter - Jennifer Hua OSA - 06/07/2024 11:49 AM EDT Regla needs scheduled for Hematology for: Anemia, unspecified type [D64.9] - Primary Comments Anemia with normal iron, elevated retic count, elevated Epo documented in this encounter Plan of Treatment Upcoming Encounters Date Type Department Care Team (Late st Contact Info) Description 06/08/2024 11:45 AM EDT Scheduled Telephone toño at [place], [facility] [address] [place] [address] Coordinator, [facility] [address] [place] [address] 2024 10:00 AM EDT Scheduled Telephone [facility], [facility] [address] [place] [address] Coordinator, [facility] [address] [place] [address] 06/11/2024 4:00 PM EDT Home Visit [facility], [facility] [address] [place] [address] Destiny Schultz, POPPY [address] [place] [address] 10/01/2024 1:00 PM EST Telemedicine Family Medicine [address] [place] [phone] Kusum Jones CRNP [address] [place] [address] [place] [address] 10/13/2024 11:30 AM EST Telemedicine Urology, [facility] [address] [place] [address] Chandler Pena MD [address] [place] [address] 11/24/2024 1:40 PM EDT Office Visit Dermatology [address] [place] [address] Sheryl Pena PA-C [address] [place] [address] [place] [address] 04/18/2025 1:20 PM EDT Telemedicine Family Medicine [address] [place] [phone] Verónica Benavides MD [address] [place] [address] [place] [address] Health Maintenance Due Date Last Done Comments [...] 04/19/20252 024, 02/07/2023, 01/18/2022, Additional history exists CKD PHOS USE SMARTSET 72148 05/05/202504/25, 04/30/2024, 04/02/2024, Additional history exists CKD HGB USE SMARTSET 36900 05/26/202505/26, 05/26/2024, 05/07/2024, Additional history exists Pneumococcal [...] on File Type Date Recorded Patient Senior Operations Analyst Expl anation Advance Directives and Living Will 08/10/2021 ADVANCE DIRECTIVE / LIVING WILL LIVING WILL Healthcare Agents on File Name Relationship Healthcare Agent [facility] p Communication Josselyn Judd [facility] Power of Attor nathalie Care Teams Manager Photography Relationship Specialty Start Date End Date Verónica Benavides MD [address] [place] [address] [place] [phone] PCP - General Family Medicine 09/16/14 documented as of this encounter
--- OUTSIDE RECORDS SUMMARY | 2024-06-10 12:48 | External Medical Summary | Summary of Care ---
Author Name Unknown Organization [facility] Address [address] [place] [address] Phone [phone] Care Team Providers Care Electrical Technician Instructor Name Role Phone Verónica Benavides MD Primary Care Provide r Reason for Visit * Reason Onset Date Comments Referral 06/07/2024 SP 10-Day Encounter Details Date Type Department Care Team (Late st Contact Info) Description 06/07/2024 New Patient Triage (PROFESSOR IN FAMILY STUDIES USE ONLY) Hematology/Oncology [facility] [address] [facility] [place] [address] Mary Knox CRNP [address] [place] [address] Referral (SP 10-Day) Allergies Active Allergy Reactions Criticality Noted Date [...] Strip 1 05/30/2023 Active OneTouch Delica Plus [id number] :Type 2 diabetes mellitus with hemoglobin A1c [...] XL)Indications:Non-i schemic cardiomyopathy (HCC),Coronary artery disease involving jamul coronary [...] mRNA, LNP-s, No Pre serve, 2-Dose Series ([employer]) 08/29/2021,10/23/2020,10/02/2020 COVID-19, MRNA-LNP, 23-24, P F, 30 MCG/0.3 mL, 12 YRS AND ABOVE, IM ([employer]) 08/04/2023 Covid-19, Mrna, Lnp-s, Pf, B ivalent, [...] of this encounter Progress Notes * Kathe Carrion LPN - 06/07/2024 11:55 AM EDT Images from the original note were not included. New Patient Triage What is the diagnosis/reason for referral?: Anemia, unspecified Enter order ID here: [id number] Specialty specific documentation: Hematology/Oncology NEW PATIENT - HEMATOLOGY/ONCOLOGY SPECIALTY TRIAGE Triage needed?: Yes Referring provider name: Dr. Benavides Confirmation of diagnosis: Yes TRIAGE PLAN: Baseline/staging imaging complete: No Labs available: Yes Referral to other specialty recommended (ie. Surgery, outpatient infusion): No Additional triage comments: Please refer to Patient Message 06/02/2024, Dr. Benavides- requesting video visit if possible. documented in this encounter Plan of Treatment Upcoming Encounters Date Type Department Care Team (Late st Contact Info) Description 06/08/2024 11:45 AM EDT Scheduled Telephone [facility], [facility] [address] [place] [address] Coordinator, [facility] [address] [place] [address] 2024 10:00 AM EDT Scheduled Telephone [facility], [facility] [address] [place] [address] Coordinator, [facility] [address] [place] [address] 06/11/2024 4:00 PM EDT Home Visit [facility], [facility] [address] [place] [address] Destiny Schultz, OPPPY [address] [place] [address] 10/01/2024 1:00 PM EST Telemedicine Family Medicine [address] [place] [phone] Kusum Jones CRNP [address] [place] [address] [place] [address] 10/13/2024 11:30 AM EST Telemedicine Urology, [facility] [address] [place] [address] Chandler Pena MD [address] [place] [address] [place] [address] 11/24/2024 1:40 PM EDT Office Visit Dermatology [address] [place] [address] Sheryl Pena PA-C [address] [place] [address] [place] [address] 04/18/2025 1:20 PM EDT Telemedicine Family Medicine [address] [place] [phone] Veróncia Benavides MD [address] [place] [address] [place] [address] Health Maintenance Due Date Last Done Comments [...] 11/01/2022, Additional history exists TSH 04/02/2025 04/02/2024, 0808/2022, 02/24/2023, Additional history exists Albumin/Creatinine Ratio 04/19/2025 024, 02/07/2023, 01/18/2022, Additional history exists CKD PHOS USE SMARTSET 72073 05/05/202504/25, 04/30/2024, 04/02/2024, Additional history exists CKD HGB USE SMARTSET 11070 05/26/202505/26, 05/26/2024, 05/07/2024, Additional history exists Pneumococcal [...] Documents on File Type Date Recorded Patient [employer] Instructor Expl anation Advance Directives and Living Will 08/10/2021 ADVANCE DIRECTIVE / LIVING WILL LIVING WILL Healthcare Agents on File Name Relationship Healthcare [facility] Communication Josselyn Judd Adult Child Health Care Power of Attor nathalie Care Teams Electrical Technician Instructor Relationship Specialty Start Date End Date Verónica Benavides MD [address] [place] [address] [place] [phone] PCP - General Family Medicine 09/16/14 documented as of this encounter
--- OUTSIDE RECORDS SUMMARY | 2024-06-10 12:48 | External Medical Summary | Summary of Care ---
Author Name Unknown Organization [facility] Address [address] [place] [address] Phone [phone] Care Team Providers Care Catalyst Unit Operator Name Role Phone Verónica Benavides MD Primary Care Provide r Reason for Visit * Reason Onset Date Comments [facility]: Acute 06/08/2024 Encounter Details Date Type Department Care Team (Latest Contact Info) Description 06/08/2024 11:45 AM EDT Scheduled Telephone [facility], [facility] [address] [facility] [place] [address] Coordinator, [facility] [address] [facility] [place] [address] 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 Do not use for more than one week. 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 Pea-sized amount around vulvar area nightly 30 g 5 07/14/2023 Active DIURETIC TITRATION PLAN If no improvement on day 3, contact [facility] for possible home visit 1 [...] XL)Indications:Non-i schemic cardiomyopathy (HCC),Coronary artery disease involving [place] [...] mRNA, LNP-s, No Pre serve, 2-Dose Series ([employer] App) 08/29/2021,10/23/2020,10/02/2020 COVID-19, MRNA-LNP, 23-24, P F, 30 MCG/0.3 mL, 12 YRS AND ABOVE, IM ([employer]-Comirnat) 08/04/2023 Covid-19, Mrna, Lnp-s, Pf, B ivalent, 30 Mcg, IM, 12 yrs and above ([employer] App) 08/02/2022 Influenza, Whole Virus 08/07/2000 Pneumococcal Conjugate [...] Chaudhari DO - 06/08/2024 12:41 PM EDT [facility] QuickNote Recommendations: [...] to be completed and correspondence: FYI to [facility]'s Care Team Karthikeyan Chaudhari DO [facility] - [facility] 06/08/2024 Scheduled appointments in the next 60 days: Future Appointments-next 60 days Date/Time Provider Specialty Dept Phone 2024 10:00 AM Coordinator, Lise Lepe [facility] [phone] 06/11/2024 4:00 PM Destiny Schultz, POPPY [facility] [phone] 10/01/2024 1:00 PM Kusum Jones CRNP Family Medicine [phone] 10/13/2024 11:30 AM Chandler Pena MD Urology [phone] 11/24/2024 1:40 PM (Arrive by 1:25 PM) Sheryl Pena PA-C Dermatology [phone] 04/18/2025 1:20 PM Verónica Benavides MD Family Medicine [phone] * Telephone Encounter - Angie Lin RN - 06/08/2024 11:56 AM EDT [facility] Telephonic Nurse Follow-Up Call [facility] Subprogram: Primary Care at Home [...] assessment, poss IV Lasix Disposition: Routed to [facility] and/or [facility] Care Team for further advice and RNCM visit scheduled Future Visits Scheduled: Future Appointments-next 60 days Date/Time Provider Specialty Dept Phone 2024 10:00 AM Coordinator, Lise Lepe [facility] [phone] 06/11/2024 4:00 PM Destiny Schultz, RN [facility] [phone] 10/01/2024 1:00 PM Kusum Jones CRNP Family Medicine [phone] 10/13/2024 11:30 AM Chandler Pena MD Urology [phone] 11/24/2024 1:40 PM (Arrive by 1:25 PM) Sheryl Pena PA-C Dermatology [phone] 04/18/2025 1:20 PM Verónica Benavides MD Family Medicine [phone] Angie Lin RN documented in this encounter Plan of Treatment Upcoming Encounters Date Type Department Care Team (Late st Contact Info) Description 2024 10:00 AM EDT Scheduled Telephone [facility], [facility] [address] [place] [address] Coordinator, Lise Lepe [address] [place] [address] 06/11/2024 4:00 PM EDT Home Visit [facility], [facility] [address] [place] [address] Destiny Schultz, POPPY [address] [place] [address] 10/01/2024 1:00 PM EST Telemedicine Family Medicine [address] [phone] Kusum Jones CRNP [address] [place] [address] [place] [address] 10/13/2024 11:30 AM EST Telemedicine Urology, [facility] [address] [place] [address] Chandler Pena MD [address] [place] [address] 11/24/2024 1:40 PM EDT Office Visit Dermatology [address] [place] [address] Sheryl Pena PA-C [address] [place] [address] [place] [address] 04/18/2025 1:20 PM EDT Telemedicine Family Medicine [address] [place] [phone] Verónica Benavides MD [address] [place] [address] [place] [address] Scheduled Orders Name Type Priority Associated Diagnoses [...] Additional history exists CKD PHOS USE SMARTSET 46706 05/05/202504/25, 04/30/2024, 04/02/2024, Additional history exists CKD HGB USE SMARTSET 29790 05/26/202505/26, 05/26/2024, 05/07/2024, Additional history exists Pneumococcal [...] Documents on File Type Date Recorded Patient Kennel Keeper Expl anation Advance Directives and Living Will 08/10/2021 ADVANCE DIRECTIVE / LIVING WILL LIVING WILL Healthcare Agents on File Name Relationship [facility] Adult Child Health Care Power of Attor nathalie Care Teams Catalyst Unit Operator Relationship Specialty Start Date End Date Verónica Benavides MD [address] [place] [address] [place] [phone] PCP - General Family Medicine 09/16/14 documented as of this encounter
--- OUTSIDE RECORDS SUMMARY | 2024-06-10 12:48 | External Medical Summary | Summary of Care ---
Author Name Unknown Organization [facility] Address [address] [place] [address] Phone [phone] Care Team Providers Care Manager Home Improvement Name Role Phone Verónica Benavides MD Primary Care Provide r Reason for Visit * Reason Onset Date Comments [facility]: Acute 06/07/2024 Encounter Details Date Type Department Care Team (Late st Contact Info) Description 06/07/2024 Telephone [facility], [facility] [address] [facility] [place] [id number] Sondra Sandra RN [address] [place] [address] [facility]: Acute Allergies Active Allergy [...] Strip 1 05/30/2023 Active OneTouch Delica Plus [id number] :Type 2 diabetes mellitus with hemoglobin A1c goal of less than 8.0% ([facility]) Test up to two times daily or as directed by [facility] pharmacist 200 Each 3 07/11/2023 Active Estrogens Conjugated 0.625 MG/GM Vaginal Cream (Premarin) Administer 0.5 g into the vagina every night at bedtime. Pea-sized amount around vulvar area nightly 30 g 5 07/14/2023 Active DIURETIC TITRATION PLAN If no improvement on day 3, contact [facility] for possible home visit 1 [...] 06/29/2021 Last Assessment & Plan: [facility] Triage Call: Reviewed last C&S [...] mRNA, LNP-s, No Pre serve, 2-Dose Series (Ibercheck) 08/29/2021,10/23/2020,10/02/2020 COVID-19, MRNA-LNP, 23-24, P F, 30 MCG/0.3 mL, 12 YRS AND ABOVE, IM ([employer]-ComirnatGogoCoin) 08/04/2023 Covid-19, Mrna, Lnp-s, Pf, B ivalent, [...] encounter Miscellaneous Notes * Telephone Encounter - Sondra Sandra RN - 06/07/2024 2:10 PM EDT PC placed to daughter Josselyn with new DTP order by [facility]. Increase Torsemide to 80 mg po BID x 3 days. Added FCC's . Sondra Sandra RN [facility] Intake [phone] * Telephone Encounter - Mak Chaudhari DO - 06/07/2024 1:14 PM EDT [facility] QuickNote Recommendations: I would recommend AGAINST checking a UA Let's increase her Torsemide to 80mg BID for the next 3 days and see how she responds Orders: No orders of the defined types were placed in this encounter. To Do: Please see below for follow up items to be completed and correspondence: CALIXTOI to Regla's Care Team internal controls consultant Pool please work on the following: contact the caller with advice and orders as above Mak Chaudhari DO [facility] - [facility] 06/07/2024 Scheduled appointments in the next 60 days: Future Appointments-next 60 days Date/Time Provider Specialty Dept Phone 06/08/2024 11:45 AM Coordinator, Lise Lepe [facility] [phone] 2024 10:00 AM Coordinator, Lise Lepe [facility] [phone] 06/11/2024 4:00 PM Destiny Schultz RN [facility] [phone] 10/01/2024 1:00 PM Kusum Jones CRNP Family Medicine [phone] 10/13/2024 11:30 AM Chandler Pena MD Urology [phone] 11/24/2024 1:40 PM (Arrive by 1:25 PM) Sheryl Pena PA-C Dermatology [phone] 04/18/2025 1:20 PM Verónica Benavides MD Family Medicine [phone] * Telephone Encounter - Sondra Sandra RN - 06/07/2024 12:06 PM EDT [facility] internal controls consultant Acute Call Date: 06/07/2024 Time: 12:06 PM Name: Regla Castano : 1935 Caller: Daughter-Josselyn HPI: Regla Castano is a 88 year old old female that is calling [facility] Intake to report Increase in baseline weight-235 lbs to 238.5lbs today. This increase is over 3-4 days. This is accompanied by increased SOB at rest, increased BLE edema. Weakness. Pt took Metolazone last week but did not diurese much per daughter. Today daughter is unsure what to give for DTP. She is taking Torsemide 60 mg p BID and Aldactone 12.5 mg daily. Unsure if she needs Metolazone 2.5 mg or extra Torsemide or Aldactone.. Daughter sent urine specimen to lab today as well. No complaints of UTI, but wants to r/o same as cause of increased weakness. No constipation. No report of abdominal bloating. Nursing Assessment: Patient's chief complaint for this call: Edema Other, describe Weight gain Pain Denies pain Baseline Assessment Able to performing ADLs at baseline (walking, daily tasks, etc.): Yes Chief Complaint is related to a chronic condition: Yes Chronic Condition: HF Chief Complaint is a change in baseline: Yes, Increase in weight and edema Patient prescribed oxygen? Yes, 3L/min hs Patient has been ordered DME equipment (assistive devices, respiratory equipment, etc.): Yes Describe DME devices: Oxygen Patient is using DME device as directed: Yes Medication Reconciliation: (See medication list) Received flu shot this season: No Taking medication as ordered: Yes Medications ordered/taking to treat reason for call: Yes, PRN medication(s) Has Metolazone 2.5 mg Heart failure symptoms: Yes Is Diuretic Titration Protocol (DTP) ordered? Yes Describe Diuretic Titration Protocol (DTP): Metolazone as per [facility] Diuretic Titration Protocol (DTP) activated: No Intake recommends initiating Diuretic Titration Protocol (DTP): Yes, medications recommended Will await [facility] recommendation. COPD exacerbation symptoms: No Reinforcement Education: Will obtain orders from [facility] and call back. Keep HOB elevated. Monitor urine output. Will call back with DTP orders. Call [facility] if sxs worsening. Maintain fluid restriction of 64oz or less. Treatment/Plan: (need to report) Level of call: Acute Appointment scheduled for same day: No Daughter will start DTP when orders received. May need HV if pt does not diurese. Sondra Sandra RN [facility] Intake [phone] documented in this encounter Plan of Treatment Upcoming Encounters Date Type Department Care Team (Late st Contact Info) Description 06/08/2024 11:45 AM EDT Scheduled Telephone [facility] [address] [place] [address] Coordinator, [facility] [address] [facility] [place] [address] 2024 10:00 AM EDT Scheduled Telephone [facility], [facility] [address] [place] [address] Coordinator, [facility] [address] [place] [address] 06/11/2024 4:00 PM EDT Home Visit [facility], [facility] [address] [place] [address] Destiny Schultz, POPPY [address] [place] [address] 10/01/2024 1:00 PM EST Telemedicine Family [address] [phone] Kusum Jones CRNP [address] [place] [address] [place] [address] 10/13/2024 11:30 AM EST Telemedicine Urology, [facility] 132 [facility] [place] [address] Chandler Pena MD [address] [place] [address] 11/24/2024 1:40 PM EDT Office Visit Dermatology [address] [place] [address] Sheryl Pena PA-C [address] [place] [address] [place] [address] 04/18/2025 1:20 PM EDT Telemedicine Family Medicine [address] [place] [phone] Verónica Benavides MD [address] [place] [address] [place] [address] Health Maintenance Due Date Last Done Comments [...] 11/01/2022, Additional history exists TSH 04/02/2025 04/02/2024, 08/08/2022, 02/24/2023, Additional history exists Albumin/Creatinine Ratio 04/19/2025 024, 02/07/2023, 01/18/2022, Additional history exists CKD PHOS USE SMARTSET 84453 05/05/202504/25, 04/30/2024, 04/02/2024, Additional history exists CKD HGB USE SMARTSET 43890 05/26/202505/26, 05/26/2024, 05/07/2024, Additional history exists Pneumococcal [...] on File Type Date Recorded Patient Rn Geriatric Expl anation Advance Directives and Living Will 08/10/2021 ADVANCE DIRECTIVE / LIVING WILL LIVING WILL Healthcare Agents on File Name Relationship Healthcare Agent [facility] Communication Josselyn Judd [facility] Child Health Care Power of Attor nathalie Care Teams Manager Home Improvement Relationship Specialty Start Date End Date Verónica Benavides MD [address] [place] [address] [place] [phone] PCP - General Family Medicine 09/16/14 documented as of this encounter
--- OUTSIDE RECORDS SUMMARY | 2024-06-10 12:48 | External Medical Summary | Summary of Care ---
Author Name Unknown Organization [facility] Address [address] [place] [address] Phone [phone] Care Team Providers Care Rental Sales Associate Name Role Phone Verónica Benavides MD Primary Care Provide r Reason for Visit * Reason Onset Date Comments Referral 06/07/2024 SP 10-Day Encounter Details Date Type Department Care Team (Late st Contact Info) Description 06/07/2024 New Patient Triage (FLEXIBLE SHAFT WINDER USE ONLY) Hematology/Oncology [facility] [address] [facility] [place] [address] Mary Knox CRNP [address] [place] [phone] Referral (SP 10-Day) Allergies Active Allergy [...] Strip 1 05/30/2023 Active OneTouch Delica Plus [id number] :Type 2 diabetes mellitus with hemoglobin A1c [...] XL)Indications:Non-i schemic cardiomyopathy (HCC),Coronary artery disease involving [place] coronary artery of [place] heart without angina pectoris,HTN, goal below [...] Continue synthroid Coronary artery disease invo lving [place] coronary artery of [place] heart without angina pectoris 07/03/2012 Overview: [...] mRNA, LNP-s, No Pre serve, 2-Dose Series (Shop[employer]at) 08/29/2021,10/23/2020,10/02/2020 COVID-19, MRNA-LNP, 23-24, P F, 30 MCG/0.3 mL, 12 YRS AND ABOVE, IM ([employer]-ComirnatBoutir) 08/04/2023 Covid-19, Mrna, Lnp-s, Pf, B ivalent, [...] referral?: Anemia, unspecified Enter order ID here: [id number] Specialty specific documentation: Hematology/Oncology NEW PATIENT - [...] Scheduled Telephone [facility], [facility] [address] [place] [address] Coordinator, [facility] [address] [place] [address] 06/11/2024 4:00 PM EDT Home Visit [facility], [facility] [address] [place] [address] Destiny Schultz RN [address] [place] [address] 10/01/2024 1:00 PM EST Telemedicine Family Medicine [address] [place] [phone] Kusum Jones CRNP [address] [place] [address] [place] [address] 10/13/2024 11:30 AM EST Telemedicine Urology, [facility] [address] [place] [address] Chandler Pena MD 27 [facility] [place] [address] 11/24/2024 1:40 PM EDT Office Visit Dermatology [address] [place] [address] Sheryl Pena PA-C [address] [place] [address] [place] [address] 04/18/2025 1:20 PM EDT Telemedicine Family Medicine [address] [place] [phone] Verónica Benavides MD [address] [place] [address] [place] [address] Health Maintenance Due Date Last Done Comments Zoster Vaccines (1 of 2) 1985 Adult Wellness Visit 09/11/2016 09/11/2015 DXA Scan 04/02/2020 04/02/2017, 05/11/2012, 11/05/2007 Depression [...] Additional history exists CKD PHOS USE SMARTSET 26481 05/05/202504/25, 04/30/2024, 04/02/2024, Additional history exists CKD HGB USE SMARTSET 77373 05/26/202505/26, 05/26/2024, 05/07/2024, Additional history exists Pneumococcal [...] Documents on File Type Date Recorded Patient Research Biologist Expl anation Advance Directives and Living Will 08/10/2021 ADVANCE DIRECTIVE / LIVING WILL LIVING WILL Healthcare Agents on File Name Relationship [facility] Josselyn Judd Adult Child Health Care Power of Attor nathalie Care Teams Rental Sales Associate Relationship Specialty Start Date End Date Verónica Benavides MD [address] [place] [address] [place] [phone] PCP - General Family Medicine 09/16/14 documented as of this encounter
--- OUTSIDE RECORDS SUMMARY | 2024-06-10 12:49 | External Medical Summary | Summary of Care ---
Author Name Unknown Organization [facility] Address [address] [place] [address] Phone [phone] Care Team Providers Care Commodity Manager Name Role Phone Verónica Benavides MD Primary Care Provide r Reason for Visit * Reason Onset Date Comments Appointment 06/07/2024 Hematology Encounter Details Date Type Department Care Team (Late st Contact Info) Description 06/07/2024 Telephone Family [address] [phone] Verónica Benavides MD [address] [place] [address] [place] [address] Appointment (Hematology ) Allergies [...] Strip 1 05/30/2023 Active OneTouch Delica Plus [id number] :Type 2 diabetes mellitus with hemoglobin A1c goal of less than 8.0% ([facility]) Test up to two times daily or as directed by [facility] pharmacist 200 Each 3 07/11/2023 Active Estrogens Conjugated 0.625 MG/GM Vaginal Cream (Premarin) Administer 0.5 g into the vagina every night at bedtime. Pea-sized amount around vulvar area nightly 30 g 5 07/14/2023 Active DIURETIC TITRATION PLAN If no improvement on day 3, contact [facility] for possible home visit 1 [...] XL)Indications:Non-i schemic cardiomyopathy (HCC),Coronary artery disease involving [place] coronary artery of [place] heart without angina pectoris,HTN, goal below 140/90 [...] carrier 06/29/2021 Last Assessment & Plan: [facility] Triage Call: Reviewed last C&S [...] Continue synthroid Coronary artery disease invo lving [place] coronary artery of [place] heart without angina pectoris 07/03/2012 Overview: 60% [...] mRNA, LNP-s, No Pre serve, 2-Dose Series (Callvine) 08/29/2021,10/23/2020,10/02/2020 COVID-19, MRNA-LNP, 23-24, P F, 30 MCG/0.3 mL, 12 YRS AND ABOVE, IM ([employer]-Comirnaty) 08/04/2023 Covid-19, Mrna, Lnp-s, Pf, B ivalent, [...] Miscellaneous Notes * Telephone Encounter - Jennifer Hua OSA - 06/07/2024 11:49 AM EDT Regla needs scheduled for Hematology for: Anemia, unspecified type [D64.9] - Primary Comments Anemia with normal iron, elevated retic count, elevated Epo documented in this encounter Plan of Treatment Upcoming Encounters Date Type Department Care Team (Late st Contact Info) Description 06/08/2024 11:45 AM EDT Scheduled Telephone [facility], [address] [place] [address] Coordinator, [facility] Ian [facility] [address] [place] [address] 2024 10:00 AM EDT Scheduled Telephone [facility], [facility] [address] [place] [address] Coordinator, Lenny Ian Lepe [address] [place] [address] 06/11/2024 4:00 PM EDT Home Visit [facility], [facility] [address] [place] [address] Destiny Schultz, RN [address] [place] [address] 10/01/2024 1:00 PM EST Telemedicine Family Medicine [address] [place] [phone] Kusum Jones CRNP [address] [place] [address] [place] [address] 10/13/2024 11:30 AM EST Telemedicine Urology, [facility] [address] [place] [address] Chandler Pena MD [address] [place] [address] 11/24/2024 1:40 PM EDT Office Visit Dermatology [address] [place] [address] Sheryl Pena PA-C [address] [place] [address] [place] [address] 04/18/2025 1:20 PM EDT Telemedicine Family [address] [place] [phone] Verónica Benavides MD [address] [place] [address] [place] [address] Health Maintenance Due Date Last Done Comments [...] Additional history exists CKD PHOS USE SMARTSET 10345 05/05/202504/25, 04/30/2024, 04/02/2024, Additional history exists CKD HGB USE SMARTSET 70863 05/26/202505/26, 05/26/2024, 05/07/2024, Additional history exists Pneumococcal [...] Documents on File Type Date Recorded Patient Gas Prover Expl anation Advance Directives and Living Will 08/10/2021 ADVANCE DIRECTIVE / LIVING WILL LIVING WILL Healthcare Agents on File Name Relationship Healthcare Agent [facility] Communication Josselyn Judd Adult Child Health Care Power of Attor nathalie Care Teams Commodity Manager Relationship Specialty Start Date End Date Verónica Benavides MD [address] [place] [address] [place] [phone] PCP - General Family Medicine 09/16/14 documented as of this encounter
--- OUTSIDE RECORDS SUMMARY | 2024-06-10 12:49 | External Medical Summary | Summary of Care ---
Author Name Unknown Organization [facility] Address [address] [place] [address] Phone [phone] Care Team Providers Care Voice Systems Engineer Name Role Phone Verónica Benavides MD Primary Care Provide r Reason for Visit * Reason Onset Date Comments [facility]: Acute 06/07/2024 Encounter Details Date Type Department Care Team (Late st Contact Info) Description 06/07/2024 Telephone [facility], [facility] [address] [facility] [place] [phone] Sondra Sandra RN [address] [place] [address] [facility]: Acute Allergies Active Allergy [...] Strip 1 05/30/2023 Active OneTouch Delica Plus [id number] :Type 2 diabetes mellitus with hemoglobin A1c goal of less than 8.0% ([facility]) Test up to two times daily or as directed by [facility] pharmacist 200 Each 3 07/11/2023 Active Estrogens Conjugated 0.625 MG/GM Vaginal Cream (Premarin) Administer 0.5 g into the vagina every night at bedtime. 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 Last Assessment & Plan: [facility] Triage Call: Reviewed last C&S - [...] mRNA, LNP-s, No Pre serve, 2-Dose Series ([employer]) 08/29/2021,10/23/2020,10/02/2020 COVID-19, MRNA-LNP, 23-24, P F, 30 MCG/0.3 mL, 12 YRS AND ABOVE, IM ([employer]) 08/04/2023 Covid-19, Mrna, Lnp-s, Pf, B ivalent, [...] Sandra RN - 06/07/2024 12:06 PM EDT [facility] 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 COPD exacerbation symptoms: No Reinforcement Education: Will obtain orders from [facility] and call back. Keep HOB elevated. Monitor urine output. Will call back with DTP orders. Call [facility] if sxs worsening. Maintain fluid restriction of 64oz or less. Treatment/Plan: (need to report) Level of call: Acute Appointment scheduled for same day: No Daughter will start DTP when orders received. May need HV if pt does not diurese. Sondra Sandra RN [facility] Intake [phone] documented in this encounter Plan of Treatment Upcoming Encounters Date Type Department Care Team (Late st Contact Info) Description 06/08/2024 11:45 AM EDT Scheduled Telephone [facility] [address] [place] [address] Coordinator, [facility] [address] [place] [address] 2024 10:00 AM EDT Scheduled Telephone [facility] [address] [place] [address] Coordinator, [facility] [address] [place] [address] 06/11/2024 4:00 PM EDT [facility] Visit [facility], [facility] [address] [place] [address] Destiny Schultz, POPPY 132 [facility] [place] [address] 10/01/2024 1:00 PM EST Telemedicine Family Medicine [address] [place] [phone] Kusum Jones CRNP [address] [place] [address] [place] [address] 10/13/2024 11:30 AM EST Telemedicine Urology, [facility] [place] [address] Chandler Pena MD 27 [facility] [place] [address] 11/24/2024 1:40 PM EDT Office Visit Dermatology [address] [place] [address] Sheryl Pena PA-C [address] [place] [address] [place] [address] 04/18/2025 1:20 PM EDT Telemedicine Family Medicine [address] [place] [phone] Verónica Benavides MD [address] [place] [address] [place] [address] Health Maintenance Due Date Last Done Comments [...] 04/02/2024, 06/2 , 11/01/2022, Additional history exists TSH 04/02/2025 04/02/2024, 08/0 08/2022, 02/24/2023, Additional history exists Albumin/Creatinine Ratio 04/19/2025 024, 02/07/2023, 01/18/2022, Additional history exists CKD PHOS USE SMARTSET 50878 05/05/202504/25, 04/30/2024, 04/02/2024, Additional history exists CKD HGB USE SMARTSET 58859 05/26/202505/26, 05/26/2024, 05/07/2024, Additional history exists Pneumococcal [...] Documents on File Type Date Recorded Patient Warp Scouring Vat Tender Expl anation Advance Directives and Living Will 08/10/2021 ADVANCE DIRECTIVE / LIVING WILL LIVING WILL Healthcare Agents on File Name Relationship Healthcare Agent Relationshi p Communication Josselyn Judd Adult Child Health Care Power of Attor nathalie Care Teams Voice Systems Engineer Relationship Specialty Start Date End Date Verónica Benavides MD [address] [place] [address] [place] [phone] PCP - General Family Medicine 09/16/14 documented as of this encounter
--- OUTSIDE RECORDS SUMMARY | 2024-06-10 12:49 | External Medical Summary | Summary of Care ---
Author Name Unknown Organization [facility] Address [address] [place] [address] Phone [phone] Care Team Providers Care Grain Commodity Manager Name Role Phone Verónica Benavides MD Primary Care Provide r Reason for Visit * Reason Onset Date Comments Appointment 06/07/2024 Hematology Encounter Details Date Type Department Care Team (Late st Contact Info) Description 06/07/2024 Telephone Family [address] [phone] Verónica Benavides MD [address] [place] [address] [place] [address] Appointment (Hematology ) Allergies [...] Strip 1 05/30/2023 Active OneTouch Delica Plus [id number] :Type 2 diabetes mellitus with hemoglobin A1c [...] XL)Indications:Non-i schemic cardiomyopathy (HCC),Coronary artery disease involving [place] coronary artery of [place] heart without angina pectoris,HTN, goal below [...] Continue synthroid Coronary artery disease invo lving [place] coronary artery of [place] heart without angina pectoris 07/03/2012 Overview: [...] mRNA, LNP-s, No Pre serve, 2-Dose Series (Brevity) 08/29/2021,10/23/2020,10/02/2020 COVID-19, MRNA-LNP, 23-24, P F, 30 MCG/0.3 mL, 12 YRS AND ABOVE, IM ([employer]-Comirnaty) 08/04/2023 Covid-19, Mrna, Lnp-s, Pf, B ivalent, [...] 11:45 AM EDT Scheduled Telephone [facility], [address] [place] [address] Coordinator, [facility] Ian [facility] [address] [place] [address] 2024 10:00 AM EDT Scheduled Telephone [facility], [facility] [address] [place] [address] Coordinator, Lenny Ian Lepe [address] [place] [address] 06/11/2024 4:00 PM EDT Home Visit [facility], [facility] [address] [place] [address] Destiny Schultz, RN [address] [place] [address] 10/01/2024 1:00 PM EST Telemedicine Family Medicine [address] [place] [phone] Kusum Jones CRNP [address] [place] [address] [place] [address] 10/13/2024 11:30 AM EST Telemedicine Urology, [facility] [address] [place] [address] Chandler Pena MD [address] [place] [address] 11/24/2024 1:40 PM EDT Office Visit Dermatology [address] [place] [address] Sheryl Pena PA-C [address] [place] [address] [place] [address] 04/18/2025 1:20 PM EDT Telemedicine Family [address] [place] [phone] Verónica Benavides MD [address] [place] [address] [place] [address] Health Maintenance Due Date Last Done Comments [...] Additional history exists CKD PHOS USE SMARTSET 01576 05/05/202504/25, 04/30/2024, 04/02/2024, Additional history exists CKD HGB USE SMARTSET 38348 05/26/202505/26, 05/26/2024, 05/07/2024, Additional history exists Pneumococcal [...] Documents on File Type Date Recorded Patient Facilities Operations Technician Expl anation Advance Directives and Living Will 08/10/2021 ADVANCE DIRECTIVE / LIVING WILL LIVING WILL Healthcare Agents on File Name Relationship Healthcare Agent [facility] Communication Josselyn Judd Adult Child Health Care Power of Attor nathalie Care Teams Grain Commodity Manager Relationship Specialty Start Date End Date Verónica Benavides MD [address] [place] [address] [place] [phone] PCP - General Family Medicine 09/16/14 documented as of this encounter
--- OUTSIDE RECORDS SUMMARY | 2024-06-10 12:49 | External Medical Summary | Summary of Care ---
Author Name Unknown Organization [facility] Address [address] [place] [address] Phone [phone] Care Team Providers Care Garbage Truck Dispatcher Name Role Phone Verónica Jiang MD Primary Care Provide r Reason for Visit * Reason Onset Date Comments Medication Refill 06/04/2024 Encounter Details Date Type Department Care Team (Late st Contact Info) Description 06/04/2024 Refill Family Medicine [address] [address] Verónica Jiang MD [address] [place], [place] [address] [address] Allergies Active Allergy Reactions Criticality Noted [...] Strip 1 05/30/2023 Active OneTouch Delica Plus [id number] s:Type 2 diabetes mellitus with hemoglobin A1c [...] If no improvement on day 3, contact [facility] for possible home visit 1 Each [...] 05/12/2024 Active Spironolactone 25 MG Oral Tablet (Aldactone)Indicati [...] MCG Oral Tablet (Levoxyl)Indication s:Hypothyroidism, unspecified type Take 1 Tablet by mouth daily first thing in the morning. (at least 30 min prior to breakfast or other meds) 90 Tablet 3 05/12/2024 Active Metoprolol Succinate ER 25 MG Oral Tablet Extended Release 24 Hour (toPROL XL)Indications:Non- ischemic cardiomyopathy (HCC),Coronary artery disease involving [place] coronary [...] 05/21/2024 Active Torsemide 20 MG Oral Tablet (Demadex)Indication s:Heart failure, systolic, due to idiopathic cardiomyopathy (HCC) Take 3 Tablets by mouth in the morning and 3 Tablets in the evening. 05/21/2024 Active Clotrimazole 1 % External Cream (Lotrimin)Indicatio ns:Candidal intertrigo APPLY TO THE AFFECTED AREA(S) TWICE DAILY FOR FOURTEEN DAYS 60 g 2 05/25/2024 Active Trulicity 0.75 MG/0.5ML Subcutaneous Solution Pen-injector (Dulaglutide) Inject 0.75 mg under the skin once a week. 0.5 mL 3 06/07/2024 Active Trulicity 0.75 MG/0.5ML Subcutaneous Solution Pen-injector (Dulaglutide) Inject 0.75 mg under the skin once a week. 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 Last Assessment & Plan: [facility] Triage Call: Reviewed last C&S - [...] mRNA, LNP-s, No Pre serve, 2-Dose Series (Localler) 08/29/2021,10/23/2020,10/02/2020 COVID-19, MRNA-LNP, 23-24, P F, 30 MCG/0.3 mL, 12 YRS AND ABOVE, IM ([employer]) 08/04/2023 Covid-19, Mrna, Lnp-s, Pf, B ivalent, 30 Mcg, IM, 12 yrs and above (Localler) 08/02/2022 Pneumococcal Conjugate Vacc, 13 Valent (Prevnar) [...] Telephone Encounter - Verónica Jiang MD - 06/07/2024 10:56 AM EDT Signed Prescriptions: Disp Refills Trulicity 0.75 MG/0.5ML Subcutaneous Solut*0.5 mL 3 Sig: Inject 0.75 mg under the skin once a week. Authorizing Provider: VERÓNICA JIANG * Telephone Encounter - Medina Braswell RN - 06/07/2024 9:05 AM EDTPending Prescriptions: Disp Refills Trulicity 0.75 MG/0.5ML Subcutaneous Solut*0.5 mL 3 Sig: Inject 0.75 mg under the skin once a week. * Telephone Encounter - Gloria Astudillo, BETTY - 06/04/2024 8:25 AM EDT Did you pend patient's preferred pharmacy and medication before forwarding?yes Pharmacy: [facility], [address] [place] Pending Prescriptions: Disp Refills Trulicity 0.75 MG/0.5ML Subcutaneous Solu*0.5 mL 0 Sig: Inject 0.75 mg under the skin once a week. Last Visit: 12/05/2022 (in office), 05/21/2024 (telemedicine) Next Visit: 10/01/2024 If no future appointments scheduled, and last appointment is greater than a year ago, please schedule patient for a follow-up appointment Last date the medication was ordered: 05/12/2024 Is this request for a controlled substance?No Urine Drug Screen:No results found. However, due to the size of the patient record, not all encounters were searched. Please check Results Review for a complete set of results. Patient Phone Numbers Labs: Lab Results Component Value Date/Time CREAT 1.0 05/26/2024 10:29 AM CREAT 1.1 (H) 09/13/2020 12:57 PM POTASSIUM 4.2 05/26/2024 10:29 AM POTASSIUM 4.5 09/13/2020 12:57 PM TSH 6.01 (H) 04/02/2024 09:53 AM TSH 6.83 (H) 07/14/2020 12:47 PM LDL 73 04/02/2024 09:53 AM LDL 90 11/09/2019 03:52 PM LDL NOT APPLICABLE 11/09/2019 03:52 PM ALT 11 05/05/2024 05:38 AM ALT 15 07/07/2020 11:05 AM HGBA1C 7.3 (H) 04/02/2024 09:53 AM HGBA1C 6.4 (H) 06/06/2020 11:14 AM documented in this encounter Plan of Treatment Upcoming Encounters Date Type Department Care Team (Late st Contact Info) Description 06/08/2024 11:45 AM EDT Scheduled Telephone [facility], [facility] [address] [place] [address] Coordinator, [place] [address] [address] [place] [address] 2024 10:00 AM EDT Scheduled Telephone [facility], [facility] [address] [place] [address] Coordinator, [place] [address] [address] [place] [address] 06/11/2024 4:00 PM EDT Home Visit [facility], [facility] [address] [place] [address] Destiny Schultz RN [address] [place] [address] 10/01/2024 1:00 PM EST Telemedicine Family [address] [place] [phone] Kusum Jones [address] [place] [address] 10/13/2024 11:30 AM EST Telemedicine Urology, [facility] [address] [place] [address] Chandler Pena MD [address] [place] [address] 11/24/2024 1:40 PM EDT Office Visit Dermatology [address] [place] [address] Sheryl Pena PA-C [address] [place] [address] [place] [address] 04/18/2025 1:20 PM EDT Telemedicine Family Medicine [address] [place] [phone] Verónica Jiang MD [address] [place] [address] [place] [address] Health Maintenance Due Date Last Done Comments [...] Additional history exists CKD PHOS USE SMARTSET 45389 05/05/202504/25, 04/30/2024, 04/02/2024, Additional history exists CKD HGB USE SMARTSET 22427 05/26/202505/26, 05/26/2024, 05/07/2024, Additional history exists Pneumococcal [...] Documents on File Type Date Recorded Patient Behavior Analyst Expl anation Advance Directives and Living Will 08/10/2021 ADVANCE DIRECTIVE / LIVING WILL LIVING WILL Healthcare Agents on File Name Relationship [facility] Josselyn Judd Adult Child Health Care Power of Attor nathalie Care Teams Garbage Truck Dispatcher Relationship Specialty Start Date End Date Verónica Jiang MD [address] [place] [address] [place] [address] PCP - General Family Medicine 09/16/14 documented as of this encounter
--- OUTSIDE RECORDS SUMMARY | 2024-06-10 12:49 | External Medical Summary | Summary of Care ---
Author Name Unknown Organization [facility] Address [address] [place] [address] Phone [phone] Care Team Providers Care Restaurant Area Manager Name Role Phone Verónica Benavides MD Primary Care Provide r Reason for Visit * Reason Onset Date Comments [facility]: Acute 06/07/2024 Encounter Details Date Type Department Care Team (Late st Contact Info) Description 06/07/2024 Telephone [facility], [facility] [address] [facility] [place] [phone] Sondra Sandra RN [address] [place] [address] [facility]: Acute Allergies Active Allergy [...] Strip 1 05/30/2023 Active OneTouch Delica Plus [id number] :Type 2 diabetes mellitus with hemoglobin A1c [...] If no improvement on day 3, contact [facility] for possible home visit 1 [...] XL)Indications:Non-i schemic cardiomyopathy (HCC),Coronary artery disease involving [place] coronary artery of [place] heart without angina pectoris,HTN, goal below 140/90 [...] 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 Last Assessment & Plan: [facility] Triage Call: Reviewed last C&S [...] Continue synthroid Coronary artery disease invo lving [place] coronary artery of [place] heart without angina pectoris 07/03/2012 Overview: 60% [...] mRNA, LNP-s, No Pre serve, 2-Dose Series ([employer]) 08/29/2021,10/23/2020,10/02/2020 COVID-19, MRNA-LNP, 23-24, P F, 30 MCG/0.3 mL, 12 YRS AND ABOVE, IM ([employer]irnat[employer]) 08/04/2023 Covid-19, Mrna, Lnp-s, Pf, B ivalent, [...] Chaudhari DO - 06/07/2024 1:14 PM EDT [facility] QuickNote Recommendations: I would recommend AGAINST checking a UA Let's increase her Torsemide to 80mg BID for the next 3 days and see how she responds Orders: No orders of the defined types were placed in this encounter. To Do: Please see below for follow up items to be completed and correspondence: JUNIOR to Regla's Care Team services rep Pool please work on the following: contact the caller with advice and orders as above Mak Chaudhari DO [facility] - [facility] 06/07/2024 Scheduled appointments in the next 60 days: Future Appointments-next 60 days Date/Time Provider Specialty Dept Phone 06/08/2024 11:45 AM Coordinator, [facility] [phone] 2024 10:00 AM [facility] [phone] 06/11/2024 4:00 PM Destiny Schultz RN [facility] [phone] 10/01/2024 1:00 PM Kusum Jones CRNP Family Medicine [phone] 10/13/2024 11:30 AM Chandler Pena MD Urology [phone] 11/24/2024 1:40 PM (Arrive by 1:25 PM) Sheryl Pena PA-C Dermatology [phone] 04/18/2025 1:20 PM Verónica Benavides MD Family Medicine [phone] * Telephone Encounter - Sondra Sandra RN - 06/07/2024 12:06 PM EDT [employer] at Home services rep Acute Call Date: 06/07/2024 Time: 12:06 PM Name: Regla Castano : 1935 Caller: Daughter-Josselyn HPI: Regla Castano is a 88 year old old female that is calling [facility] Intake to report Increase in [...] Diuretic Titration Protocol (DTP): Metolazone as per [facility] Diuretic Titration Protocol (DTP) activated: No Intake recommends initiating Diuretic Titration Protocol (DTP): Yes, medications recommended Will await [facility] recommendation. COPD exacerbation symptoms: No Reinforcement Education: Will obtain orders from [facility] and call back. Keep HOB elevated. Monitor urine output. Will call back with DTP orders. Call [facility] if sxs worsening. Maintain fluid restriction of 64oz or less. Treatment/Plan: (need to report) Level of call: Acute Appointment scheduled for same day: No Daughter will start DTP when orders received. May need HV if pt does not diurese. Sondra Sandra RN [facility] Intake [phone] documented in this encounter Plan of Treatment Upcoming Encounters Date Type Department Care Team (Late st Contact Info) Description 06/08/2024 11:45 AM EDT Scheduled Telephone [facility] [address] [place] [address] Coordinator, [place] [address] [address] [place] [address] 2024 10:00 AM EDT Scheduled Telephone [facility] [place] [address] [place] [address] Coordinator, [place] [address] [place] [address] 06/11/2024 4:00 PM EDT Home Visit [facility] [place], [address] [place] [address] Destiny Schultz, POPPY [address] [facility] [place] [address] 10/01/2024 1:00 PM EST Telemedicine Family Medicine [address] [place] [phone] Kusum Jones CRNP [address] [place] [address] [place] [address] 10/13/2024 11:30 AM EST Telemedicine Urology, [facility] [place] [address] Chandler Pena MD [address] [place] [address] 11/24/2024 1:40 PM EDT Office Visit Dermatology [address] [place] [address] Sheryl Pena PA-C [address] [place] [address] [place] [address] 04/18/2025 1:20 PM EDT Telemedicine Family Medicine [address] [place] [phone] Verónica Benavides MD [address] [place] [address] [place] [address] Health Maintenance Due Date Last Done Comments [...] Additional history exists CKD PHOS USE SMARTSET 37691 05/05/202504/25, 04/30/2024, 04/02/2024, Additional history exists CKD HGB USE SMARTSET 65567 05/26/202505/26, 05/26/2024, 05/07/2024, Additional history exists Pneumococcal [...] Documents on File Type Date Recorded Patient Ground Hand Expl anation Advance Directives and Living Will 08/10/2021 ADVANCE DIRECTIVE / LIVING WILL LIVING WILL Healthcare Agents on File Name Relationship Healthcare Agent [facility] Communication Josselyn Judd Adult Child Health Care Power of Attor nathalie Care Teams Restaurant Area Manager Relationship Specialty Start Date End Date Verónica Benavides MD [address] [place] [address] [place] [phone] PCP - General Family Medicine 09/16/14 documented as of this encounter
--- OUTSIDE RECORDS SUMMARY | 2024-06-10 12:49 | External Medical Summary | Summary of Care ---
Author Name Unknown Organization [facility] Address [address] [place] [address] Phone [phone] Care Team Providers Care Tower Erector Name Role Phone Verónica Benavides MD Primary Care Provide r Reason for Visit * Reason Onset Date Comments Appointment 06/07/2024 Hematology Encounter Details Date Type Department Care Team (Late st Contact Info) Description 06/07/2024 Telephone Family [address] [phone] Verónica Benavides MD [address] [place] [address] [place] [address] Appointment (Hematology ) Allergies [...] disease, without long-term current use of insulin ([facility]),Type 2 diabetes mellitus with hemoglobin A1c goal of less than 8.0% ([facility]) TEST UP TO FOUR TIMES DAILY 400 Strip 1 05/30/2023 Active OneTouch Delica Plus [id number] :Type 2 diabetes mellitus with hemoglobin A1c goal of less than 8.0% ([facility]) Test up to two times daily or as directed by [facility] pharmacist 200 Each 3 07/11/2023 Active Estrogens Conjugated 0.625 MG/GM Vaginal Cream (Premarin) Administer 0.5 g into the vagina every night at bedtime. Pea-sized amount around vulvar area nightly 30 g 5 07/14/2023 Active DIURETIC TITRATION PLAN If no improvement on day 3, contact [facility] for possible home visit 1 Each 11/28/2023 [...] mRNA, LNP-s, No Pre serve, 2-Dose Series ([employer]) 08/29/2021,10/23/2020,10/02/2020 COVID-19, MRNA-LNP, 23-24, P F, 30 MCG/0.3 mL, 12 YRS AND ABOVE, IM ([employer]-Comirnaty) 08/04/2023 Covid-19, Mrna, Lnp-s, Pf, B ivalent, [...] 11:45 AM EDT Scheduled Telephone [facility] [place], [address] [place] [address] Coordinator, [facility] Ian [facility] [address] [place] [address] 2024 10:00 AM EDT Scheduled Telephone [facility] [place] [address] [place] [address] Coordinator, Lenny Ian Lepe [address] [place] [address] 06/11/2024 4:00 PM EDT Home Visit [facility] [place] [address] [place] [address] Destiny Schultz, RN [address] [place] [address] 10/01/2024 1:00 PM EST Telemedicine Family Medicine [address] [place] [phone] Kusum Jones CRNP [address] [place] [address] [place] [address] 10/13/2024 11:30 AM EST Telemedicine Urology, [facility] [address] [place] [address] Chandler Pena MD [address] [place] [address] 11/24/2024 1:40 PM EDT Office Visit Dermatology [address] [place] [address] Sheryl Pena PA-C [address] [place] [address] [place] [address] 04/18/2025 1:20 PM EDT Telemedicine Family [address] [place] [phone] Verónica Benavides MD [address] [place] [address] [place] [address] Health Maintenance Due Date Last Done Comments [...] Additional history exists CKD PHOS USE SMARTSET 34015 05/05/202504/25, 04/30/2024, 04/02/2024, Additional history exists CKD HGB USE SMARTSET 21476 05/26/202505/26, 05/26/2024, 05/07/2024, Additional history exists Pneumococcal [...] Documents on File Type Date Recorded Patient Geriatric Nurse Practitioner Expl anation Advance Directives and Living Will 08/10/2021 ADVANCE DIRECTIVE / LIVING WILL LIVING WILL Healthcare Agents on File Name Relationship Healthcare Agent [facility] Communication Josselyn Judd Adult Child Health Care Power of Attor nathalie Care Teams Tower Erector Relationship Specialty Start Date End Date Verónica Benavides MD [address] [place] [address] [place] [phone] PCP - General Family Medicine 09/16/14 documented as of this encounter
--- OUTSIDE RECORDS SUMMARY | 2024-06-10 12:49 | External Medical Summary | Summary of Care ---
Author Name Unknown Organization [facility] Address [address] [place] [address] Phone [phone] Care Team Providers Care Aix System Administrator Name Role Phone Verónica Benavides MD Primary Care Provide r Reason for Visit * Reason Onset Date Comments [facility]: Maintenance 06/07/2024 Encounter Details Date Type Department Care Team (Late st Contact Info) Description 06/07/2024 Telephone [facility], [facility] [address] [phone] Jacinta Mendoza RN [address] [place] [facility] [place] [address] [facility]: Maintenance Allergies Active Allergy [...] disease, without long-term current use of insulin ([facility]),Type 2 diabetes mellitus with hemoglobin A1c goal of less than 8.0% ([facility]) TEST UP TO FOUR TIMES DAILY 400 Strip 1 05/30/2023 Active MobileSnackTouch Delica Plus [id number] :Type 2 diabetes mellitus with hemoglobin A1c goal of less than 8.0% ([facility]) Test up to two times daily or as directed by [facility] pharmacist 200 Each 3 07/11/2023 Active Estrogens Conjugated 0.625 MG/GM Vaginal Cream (Premarin) Administer 0.5 g into the vagina every night at bedtime. 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 Last Assessment & Plan: [facility] Triage Call: Reviewed last C&S - [...] Continue synthroid Coronary artery disease invo lving cheesh-na coronary artery of cheesh-na heart without angina pectoris 07/03/2012 Overview: 60% [...] mRNA, LNP-s, No Pre serve, 2-Dose Series ([employer]) 08/29/2021,10/23/2020,10/02/2020 COVID-19, MRNA-LNP, 23-24, P F, 30 MCG/0.3 mL, 12 YRS AND ABOVE, IM ([employer]irnat[employer]) 08/04/2023 Covid-19, Mrna, Lnp-s, Pf, B ivalent, [...] Telephone Encounter - Jacinta Mendoza RN - 06/07/2024 10:35 AM EDT Call rec'd from pt's dtr Josselyn notifying [facility] that she submitted a urine specimen to the lab (currently culture in process, no UA done) as pt has a standing urine order from urologist Dr. Pena. Pt denies urinary symptoms but has had some confusion and increased weakness over the past 2 days and pt reported "I think I have a UTI". Pt continues to deny urinary symptoms. Josselyn also reports pt took a dose of metolazone last week for weight gain of 7 lbs in one week. Pt since lost 4 pounds but has gained 1-2 lbs over the past few days. Reports baseline weight is 231/232 lbs. Pt did not yet weigh self today but Josselyn is going there now and will activate DTP if needed based on weight. Pt has not exceeded fluid restriction or consumed hgih sodium foods recently. Pt does have lymphedema so LE chronically edematous. Scheduled 24/48h f/u calls for urine and weight f/u. Encouraged Josselyn to call [facility] with any new or worsening concerns. documented in this encounter Plan of Treatment Upcoming Encounters Date Type Department Care Team (Late st Contact Info) Description 06/08/2024 11:45 AM EDT Scheduled Telephone [facility], [facility] [address] [place] [address] Coordinator, [place] [address] [place] [address] 2024 10:00 AM EDT Scheduled Telephone [facility], [place] [address] [place] [address] Coordinator, [place] [address] [place] [address] 06/11/2024 4:00 PM EDT Home Visit [facility], [facility] [address] [place] [address] Destiny Schultz RN [address] [place] [address] 10/01/2024 1:00 PM EST Telemedicine Family Medicine [address] [place] [phone] Kusum Jones CRNP [address] [place] [address] [place] [address] 10/13/2024 11:30 AM EST Telemedicine Urology, [facility] [address] [place] [address] Chandler Pena MD [address] [place] [address] 11/24/2024 1:40 PM EDT Office Visit Dermatology [address] [place] [address] Sheryl Pena PA-C [address] [place] [address] [place] [address] 04/18/2025 1:20 PM EDT Telemedicine Family Medicine [address] [place] [phone] Verónica Benavides MD [address] [place] [address] [place] [address] Health Maintenance Due Date Last Done Comments [...] Additional history exists CKD PHOS USE SMARTSET 96954 05/05/202504/25, 04/30/2024, 04/02/2024, Additional history exists CKD HGB USE SMARTSET 26253 05/26/202505/264, 05/26/2024, 05/07/2024, Additional history exists Pneumococcal Vaccine: [...] Documents on File Type Date Recorded Patient Seat Cover Installer Expl anation Advance Directives and Living Will 08/10/2021 ADVANCE DIRECTIVE / LIVING WILL LIVING WILL Healthcare Agents on File Name Relationship Healthcare Agent [facility] Communication Josselyn Judd Adult Child Health Care Power of Attor nathalie Care Teams Aix System Administrator Relationship Specialty Start Date End Date Verónica Benavides MD [address] [place] [address] [place] [address] PCP - General Family Medicine 09/16/14 documented as of this encounter
--- OUTSIDE RECORDS SUMMARY | 2024-06-10 12:49 | External Medical Summary | Summary of Care ---
Author Name Unknown Organization [facility] Address [address] [place] [address] Phone [phone] Care Team Providers Care Neurodiagnostic Tech Name Role Phone Verónica Benavides MD Primary Care Provide r Reason for Visit * Reason Comments Outpatient Testing Encounter Details Date Type Department Care Team (Late st Contact Info) Description 06/07/2024 9:20 AM EDT Laboratory Laboratory [address] [place] [phone] , Specimen Drop Off [address] [place] [address] Dysuria; Chronic bacteriuria; Recurrent UTI Allergies Active Allergy [...] Strip 1 05/30/2023 Active OneTouch Delica Plus [id number] :Type 2 diabetes mellitus with hemoglobin A1c [...] evening meals. 180 Tablet 1 05/12/2024 Active Trulicity 0.75 MG/0.5ML Subcutaneous Solution Pen-injector (Dulaglutide) Inject 0.75 mg under the skin once a week. 0.5 mL 05/12/2024 Active Ondansetron HCl 4 MG Oral [...] schemic cardiomyopathy (HCC),Coronary artery disease involving red devil coronary artery of red devil heart without angina pectoris,HTN, goal below 140/90 [...] FOURTEEN DAYS 60 g 2 05/25/2024 Active documented as of this encounter (statuses [...] synthroid Coronary artery disease invo lving red devil coronary artery of red devil heart without angina pectoris 07/03/2012 Overview: 60% [...] mRNA, LNP-s, No Pre serve, 2-Dose Series ([employer]) 08/29/2021,10/23/2020,10/02/2020 COVID-19, MRNA-LNP, 23-24, P F, 30 MCG/0.3 mL, 12 YRS AND ABOVE, IM ([employer]) 08/04/2023 Covid-19, Mrna, Lnp-s, Pf, B ivalent, [...] Care Team (Late st Contact Info) Description 06/11/2024 4:00 PM EDT Home Visit [facility] [address] [place] [address] Destiny Schultz, POPPY [address] [place] [address] 10/01/2024 1:00 PM EST Telemedicine Family Medicine [address] [place] [phone] [address] [place] [address] 10/13/2024 11:30 AM EST Telemedicine Urology, [facility] [address] [place] [address] Chandler Pena MD [address] [place] [address] 11/24/2024 1:40 PM EDT Office Visit Dermatology [address] [place] [address] BeckySheryl mirza PA-C [address] [place] [address] [place] [address] 04/18/2025 1:20 PM EDT Telemedicine Family Medicine [address] [place] [phone] Verónica Benavides MD [address] [place] [address] [place] [address] Pending Results Name Type Priority Associated Diagnoses Date /Time CULTURE, URINE, QUANTITATIVE Lab Routine Dysuria Chronic bacteriuria Recurrent UTI 06/07/2024 9:20 AM EDT Health Maintenance Due Date Last [...] Additional history exists CKD PHOS USE SMARTSET 58381 05/05/202504/25, 04/30/2024, 04/02/2024, Additional history exists CKD HGB USE SMARTSET 58801 05/26/202505/26, 05/26/2024, 05/07/2024, Additional history exists Pneumococcal [...] Documents on File Type Date Recorded 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
--- OUTSIDE RECORDS SUMMARY | 2024-06-10 12:50 | External Medical Summary | Summary of Care ---
Author Name Unknown Organization [facility] Address [address] [place] [address] Phone [phone] Care Team Providers Care Search Engine Optimization Strategist Name Role Phone Verónica Benavides MD Primary Care Provide r Encounter Details Date Type Department Care Team (Late st Contact Info) Description 05/28/2024 Result Scan Unspecified Department Hermann Heredia, DO [address] [place] [address] <No scans attached> Allergies Active Allergy Reactions Criticality Noted Date Comments Adhesive Tape Medium 01/30/2022 Ibuprofen Hives 01/13/2012 Aspirin Hives,Rash 09/15/2000 Sulfamethoxazole-Trimeth oprim Nausea/vomiting,Othe r (Please comment) 10/27/2020 Dizziness Ciprofloxacin Hcl 06/16/2019 Hoarse, dizzy,disoriented Morphine 09/21/2021 Blacked out Penicillins Hives,Rash 09/15/2000 Prednisone 12/30/2017 Weakness/memory changes/blurred vision documented as of this encounter (statuses as of 05/28/2024) Medications Medication Sig Dispensed Refills Start Date [...] Strip 1 05/30/2023 Active OneTouch Delica Plus [id number] :Type 2 diabetes mellitus with hemoglobin A1c [...] If no improvement on day 3, contact [facility] for possible home visit 1 [...] XL)Indications:Non-i schemic cardiomyopathy (HCC),Coronary artery disease involving [place] coronary artery of [place] heart without angina pectoris,HTN, goal below 140/90 [...] as of this encounter (statuses as of 05/28/2024) Active Problems Problem Noted Date Diagnosed Date [...] synthroid Coronary artery disease invo lving [place] coronary artery of [place] heart without angina pectoris 07/03/2012 Overview: 60% [...] as of this encounter (statuses as of 05/28/2024) Resolved Problems Problem Noted Date Diagnosed Date [...] as of this encounter (statuses as of 05/28/2024) Immunizations Name Administration Dates Next Due COVID-19 mRNA, LNP-s, No Pre serve, 2-Dose Series ([employer]) 08/29/2021,10/23/2020,10/02/2020 COVID-19, MRNA-LNP, 23-24, P F, 30 MCG/0.3 mL, 12 YRS AND ABOVE, IM ([employer] 08/04/2023 Covid-19, Mrna, Lnp-s, Pf, B ivalent, [...] Description 06/11/2024 4:00 PM EDT Home Visit [facility] [address] [place] [address] Destiny Schultz RN [address] [place] [address] 10/01/2024 1:00 PM EST Telemedicine Family Medicine [address] [place] [phone] Kusum Jones CRNP [address] [place] [address] [place] [address] 10/13/2024 11:30 AM EST Telemedicine Urology, [facility] [address] [place] [address] Chandler Pena MD [address] [place] [address] 11/24/2024 1:40 PM EDT Office Visit Dermatology [address] [place] [address] Sheryl Pena PA-C [address] [place] [address] [place] [address] 04/18/2025 1:20 PM EDT Telemedicine Family Medicine [address] [place] [phone] Verónica Benavides MD [address] [place] [address] [place] [address] Health Maintenance Due Date Last Done Comments [...] Additional history exists CKD PHOS USE SMARTSET 42252 05/05/202504/25, 04/30/2024, 04/02/2024, Additional history exists CKD HGB USE SMARTSET 75180 05/26/202505/26, 05/26/2024, 05/07/2024, Additional history exists Pneumococcal [...] Date/Time Associated Diagnosis Comments CARDIOLOGY SCANNED RESULT 05/28/2024 documented in this encounter Results * CARDIOLOGY SCANNED RESULT (05/28/2024) 05/28/2024 Hermann Heredia DO OTHER documented in this encounter Advance Directives Documents on File Type Date Recorded Patient [place] Expl anation Advance Directives and Living Will 08/10/2021 ADVANCE DIRECTIVE / LIVING WILL LIVING WILL Healthcare Agents on File Name Relationship Healthcare Agent [facility] Communication Josselyn Judd Adult Child Health Care Power of Attor nathalie Care Teams Search Engine Optimization Strategist Relationship Specialty Start Date End Date Verónica Benavides MD [address] [place] [address] [place] [address] PCP - General Family Medicine 09/16/14 documented as of this encounter
--- OUTSIDE RECORDS SUMMARY | 2024-06-10 12:50 | External Medical Summary ---
Author Name Unknown Address Unknown Organization : Laboratory Report Ordering Provider Test Date Status APOLINAR ARMANDO 05/26/2024 10:29:00 Final Observation Date Value Abnormality Reference (Units ) Status ERYTHROPOIETIN (EPO) 05/26/2024 10:29:00 55.9 Above high normal 2.6-18.5 (mIU/mL) Final
Test Performed at:
[facility]
[address] [facility] [address]
[place] [address]
Erik Lopez M.D., Ph.D.,Director of Laboratories Performing Location
--- OUTSIDE RECORDS SUMMARY | 2024-06-10 12:50 | External Medical Summary | Summary of Care ---
Author Name Unknown Organization [facility] Address [address] [place] [address] Phone [phone] Care Team Providers Care Fine Arts Model Name Role Phone Verónica Benavides MD Primary Care Provide r Reason for Visit * Reason Onset Date Comments [facility]: Maintenance 06/02/2024 Encounter Details Date Type Department Care Team (Late st Contact Info) Description 06/02/2024 9:15 AM EDT Scheduled Telephone [facility], [facility] [address] [facility] [place] [address] Coordinator, [facility] [address] [facility] [place] [address] Allergies Active Allergy Reactions Criticality Noted Date Comments Adhesive Tape Medium 01/30/2022 Ibuprofen Hives 01/13/2012 Aspirin Hives,Rash 09/15/2000 Sulfamethoxazole-Trimeth oprim Nausea/vomiting,Othe r (Please comment) 10/27/2020 Dizziness Ciprofloxacin Hcl 06/16/2019 Hoarse, dizzy,disoriented Morphine 09/21/2021 Blacked out Penicillins Hives,Rash 09/15/2000 Prednisone 12/30/2017 Weakness/memory changes/blurred vision documented as of this encounter (statuses as of 06/02/2024) Medications Medication Sig Dispensed Refills Start Date End Date Status Star.meTouch Verio w/Device Kit Use up to 4 [...] Strip 1 05/30/2023 Active OneTouch Delica Plus [id number] :Type 2 diabetes mellitus with hemoglobin A1c goal of less than 8.0% ([facility]) Test up to two times daily or as directed by [facility] pharmacist 200 Each 3 07/11/2023 [...] XL)Indications:Non-i schemic cardiomyopathy (HCC),Coronary artery disease involving [place] coronary artery of [place] heart without angina pectoris,HTN, goal below 140/90 [...] as of this encounter (statuses as of 06/02/2024) Active Problems Problem Noted Date Diagnosed Date [...] Continue synthroid Coronary artery disease invo lving [place] coronary artery of [place] heart without angina pectoris 07/03/2012 Overview: 60% [...] as of this encounter (statuses as of 06/02/2024) Resolved Problems Problem Noted Date Diagnosed Date [...] as of this encounter (statuses as of 06/02/2024) Immunizations Name Administration Dates Next Due COVID-19 mRNA, LNP-s, No Pre serve, 2-Dose Series ([employer]) 08/29/2021,10/23/2020,10/02/2020 COVID-19, MRNA-LNP, 23-24, P F, 30 MCG/0.3 mL, 12 YRS AND ABOVE, IM ([employer]) 08/04/2023 Covid-19, Mrna, Lnp-s, Pf, B ivalent, [...] Telephone Encounter - Briseyda Rich RN - 06/02/2024 10:[address] [facility] Subprogram: Primary Care at Home Follow Up Call Type: 24 hour follow up Acute issue requiring follow-up call: Other: follow up on weight increase and Metolazone x 1 yesterday Objective: 05/17/2024 2:04 PM 04/14/2024 3:03 PM [...] DME Needs: NO DME needs identified Medications: Metolazone 2.5 mg x 1 yesterday Subjective: Condition Status: Improvement in symptoms but not at baseline Current Concerns: Called and spoke with daughter/ Josselyn she stated " her mother is good today." Her mother had a dose of Metolazone yesterday and her weight is down, yesterday she was 238.1 lbs today she is 234.5 lbs SOB is at her baseline , no worse and edema in legs slightly better today. Daughter will continue to monitor and agreeable to contact [facility] with any change or worsening of her mother's condition. Disposition: Routed to [facility] and/or ising at Home Care Team for further advice Future Visits Scheduled: Future Appointments-next 60 days Date/Time Provider Specialty Dept Phone 06/11/2024 4:00 PM Destiny Schultz, POPPY [facility] [phone] 10/01/2024 1:00 PM Kusum Jones CRNP Family Medicine [phone] 10/13/2024 11:30 AM Chandler Pena MD Urology [phone] 11/24/2024 1:40 PM (Arrive by 1:25 PM) Sheryl Pena PA-C Dermatology [phone] 04/18/2025 1:20 PM Verónica Benavides MD Family Medicine [phone] [facility] Registered Nurse Navigator Triage documented in this encounter Plan of Treatment Upcoming Encounters Date Type Department Care Team (Late st Contact Info) Description 06/11/2024 4:00 PM EDT Home Visit [facility] [place] [address] [address] [place] [address] Destiny Schultz RN [address] [place] [address] 10/01/2024 1:00 PM EST Telemedicine Family Medicine [address] [place] [phone] Kusum Jones CRNP [address] [place] [address] [place] [address] 10/13/2024 11:30 AM EST Telemedicine Urology, [facility] [address] [place] [address] Chandler Pena MD [address] [place] [address] 11/24/2024 1:40 PM EDT Office Visit Dermatology [address] [place] [address] Sheryl Pena PA-C [address] [place] [address] [place] [address] 04/18/2025 1:20 PM EDT Telemedicine Family Medicine [address] [place] [phone] Verónica Benavides MD [address] [place] [address] [place] [address] Health Maintenance Due Date Last Done Comments [...] Additional history exists CKD PHOS USE SMARTSET 79601 05/05/202504/25, 04/30/2024, 04/02/2024, Additional history exists CKD HGB USE SMARTSET 92408 05/26/202505/26, 05/26/2024, 05/07/2024, Additional history exists Pneumococcal [...] Documents on File Type Date Recorded Patient Vp Of Marketing Expl anation Advance Directives and Living Will 08/10/2021 ADVANCE DIRECTIVE / LIVING WILL LIVING WILL Healthcare Agents on File Name Relationship Healthcare Agent Relationshi p Communication Josselyn [facility] Power of Attor nathalie Care Teams Fine Arts Model Relationship Specialty Start Date End Date Verónica Benavides MD [address] [place] [address] [place] [address] PCP - General Family Medicine 09/16/14 documented as of this encounter
--- OUTSIDE RECORDS SUMMARY | 2024-06-10 12:50 | External Medical Summary ---
Author Name Unknown Address Unknown Organization K01:LABORATORY [facility] [place] [facility] [address] [place] [address] Laboratory Report Ordering Provider Test Date Status ARYAAPOLINAR BATEMAN 05/26/2024 10:29:00 Final Observation Date Value Abnormality Reference (Units ) Status Retic, % (auto) 05/26/2024 10:29:00 2.13 Above high normal 0.80-1.90 (%) Final Reticulocytes, Absolute 05/26/2024 10:29:00 52.6 31.3-100.1 (K/uL) Final Reticulocyte fraction, immature 05/26/2024 10:29:00 22.3 Above high normal 2.5-20.6 (%) Final Reticulocyte HGB 05/26/2024 10:29:00 39.4 Above high normal 29.7-37.4 (pg) Final Performing Location LABORATORY [facility] [place] [facility] [address] [facility] [address]
--- OUTSIDE RECORDS SUMMARY | 2024-06-10 12:50 | External Medical Summary ---
Author Name Unknown Address Unknown Organization K01:[place] [facility] [place] [address] [facility] [address] Laboratory Report Ordering Provider Test Date Status APOLINAR ARMANDO 05/26/2024 10:29:00 Final Observation Date Value Abnormality Reference (Units ) Status WBC, Total 05/26/2024 10:29:00 7.42 4.00-10.80 (K/uL) Final RBC 05/26/2024 10:29:00 2.47 3.85-5.15 (M/uL) Final Hemoglobin 05/26/2024 10:29:00 9.6 Below low normal 12.0-15.3 (g/dL) Final HCT 05/26/2024 10:29:00 30.5 Below low normal 36.0-45.2 (%) Final MCV 05/26/2024 10:29:00 123.5 81.5-97.5 (fL) Final MCH 05/26/2024 10:29:00 38.9 27.0-34.0 (pg) Final MCHC 05/26/2024 10:29:00 31.5 32.0-36.0 (g/dL) Final RDW 05/26/2024 10:29:00 14.6 11.5-15.5 (%) Final Platelets 05/26/2024 10:29:00 338 140-400 (K/uL) Final MPV 05/26/2024 10:29:00 10.0 6.6-11.1 (fL) Final Nucleated erythrocytes/100 leukocytes [Ratio] in Blood by Automated count 05/26/2024 10:29:00 0 <=0 (/100 WBCs) Final Performing Location LABORATORY [facility] - [address] [facility] [address]
--- OUTSIDE RECORDS SUMMARY | 2024-06-10 12:50 | External Medical Summary | Summary of Care ---
Author Name Unknown Organization [facility] Address [address] [place] [address] Phone [phone] Care Team Providers Care Security Trainer Name Role Phone Verónica Benavides MD Primary Care Provide r Encounter Details Date Type Department Care Team (Late st Contact Info) Description 05/24/2024 Population Health External Data Unspecified Department Allergies Active Allergy Reactions Criticality Noted Date Comments Adhesive Tape Medium 01/30/2022 Ibuprofen Hives 01/13/2012 Aspirin Hives,Rash 09/15/2000 Sulfamethoxazole-Trimeth oprim Nausea/vomiting,Othe r (Please comment) 10/27/2020 Dizziness Ciprofloxacin Hcl 06/16/2019 Hoarse, dizzy,disoriented Morphine 09/21/2021 Blacked out Penicillins Hives,Rash 09/15/2000 Prednisone 12/30/2017 Weakness/memory changes/blurred vision documented as of this encounter (statuses as of 05/24/2024) Medications Medication Sig Dispensed Refills Start Date [...] Strip 1 05/30/2023 Active OneTouch Delica Plus [id number] :Type 2 diabetes mellitus with hemoglobin A1c goal of less than 8.0% ([facility]) Test up to two times daily or as directed by [facility] pharmacist 200 Each 3 07/11/2023 Active Estrogens Conjugated 0.625 MG/GM Vaginal Cream (Premarin) Administer 0.5 g into the vagina every night at bedtime. Pea-sized amount around vulvar area nightly 30 g 5 07/14/2023 Active Clotrimazole 1 % External Cream (Lotrimin)Indication s:Candidal intertrigo APPLY TO THE AFFECTED AREA(S) TWICE DAILY FOR FOURTEEN DAYS 60 g 2 10/22/2023 Active DIURETIC TITRATION PLAN If no improvement on day 3, contact [facility] for possible home visit 1 [...] 3 Tablets in the evening. 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 Last Assessment & Plan: [facility] Triage Call: Reviewed last C&S [...] as of this encounter (statuses as of 05/24/2024) Resolved Problems Problem Noted Date Diagnosed Date [...] as of this encounter (statuses as of 05/24/2024) Immunizations Name Administration Dates Next Due COVID-19 mRNA, LNP-s, No Pre serve, 2-Dose Series (Reclip.It) 08/29/2021,10/23/2020,10/02/2020 COVID-19, MRNA-LNP, 23-24, P F, 30 MCG/0.3 mL, 12 YRS AND ABOVE, IM ([facility]) 08/04/2023 Covid-19, Mrna, [...] Description 06/11/2024 4:00 PM EDT [facility], [facility] [address] [place] [address] Destiny Schultz RN [address] [place] [address] 10/01/2024 1:00 PM EST Telemedicine Family Medicine [address] [place] [phone] Kusum Jones CRNP [address] [place] [address] [place] [address] 10/13/2024 11:30 AM EST Telemedicine Urology, [facility] [address] [place] [address] Chandler Pena MD [address] [place] [address] 11/24/2024 1:40 PM EDT Office Visit Dermatology [address] [place] [address] Sheryl Pena PA-C [address] [place] [address] [place] [address] 04/18/2025 1:20 PM EDT Telemedicine Family Medicine [address] [place] [phone] Verónica Benavides MD [address] [place] [address] [place] [address] Health Maintenance Due Date [...] Additional history exists CKD PHOS USE SMARTSET 99053 05/05/202504/25, 04/30/2024, 04/02/2024, Additional history exists CKD HGB USE SMARTSET 02382 05/07/202505/07, 05/07/2024, 05/05/2024, Additional history exists Pneumococcal Vaccine: 65+ Years [...] Documents on File Type Date Recorded 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
--- OUTSIDE RECORDS SUMMARY | 2024-06-10 12:50 | External Medical Summary | Summary of Care ---
Author Name Unknown Organization [facility] Address [address] [place] [address] Phone [phone] Care Team Providers Care Clarification Operator Name Role Phone Verónica Benavides MD Primary Care Provide r Reason for Visit * Reason Onset Date Comments Medication Refill 05/25/2024 Re: Clotrimazo le 1% Cream Encounter Details Date Type Department Care Team (Late st Contact Info) Description 05/25/2024 Refill [facility], [facility] [address] [place] [address] Murray Santacruz PA-C [address] [place] [address] Candidal intertrigo Allergies Active Allergy Reactions Criticality Noted Date Comments Adhesive Tape Medium 01/30/2022 Ibuprofen Hives 01/13/2012 Aspirin Hives,Rash 09/15/2000 Sulfamethoxazole-Trimeth oprim Nausea/vomiting,Othe r (Please comment) 10/27/2020 Dizziness Ciprofloxacin Hcl 06/16/2019 Hoarse, dizzy,disoriented Morphine 09/21/2021 Blacked out Penicillins Hives,Rash 09/15/2000 Prednisone 12/30/2017 Weakness/memory changes/blurred vision documented as of this encounter (statuses as of 05/25/2024) Medications Medication Sig Dispensed Refills Start Date [...] current use of insulin ([facility]),Type 2 diabetes mellitus with hemoglobin A1c goal of less than 8.0% ([facility]) TEST UP TO FOUR TIMES DAILY 400 Strip 1 05/30/2023 Active OneTouch Delica Plus [id number] s:Type 2 diabetes mellitus with hemoglobin A1c goal of less than 8.0% ([facility]) Test up to two times daily or as directed by [facility] pharmacist 200 Each 3 07/11/2023 Active Estrogens Conjugated 0.625 MG/GM Vaginal Cream (Premarin) Administer 0.5 g into the vagina every night at bedtime. Pea-sized amount around vulvar area nightly 30 g 5 07/14/2023 Active DIURETIC TITRATION PLAN If no improvement on day 3, contact [facility] for possible home visit 1 Each [...] XL)Indications:Non- ischemic cardiomyopathy (HCC),Coronary artery disease involving [place] coronary artery of [place] heart without angina pectoris,HTN, goal below [...] FOURTEEN DAYS 60 g 2 05/25/2024 Active Clotrimazole 1 % External Cream (Lotrimin)Indicatio ns:Candidal intertrigo APPLY TO THE AFFECTED AREA(S) TWICE DAILY FOR FOURTEEN DAYS 60 g 2 10/22/2023 05/25/20 24 Discontinu ed(Refill) documented as of this encounter (statuses as of 05/25/2024) Active Problems Problem Noted Date Diagnosed Date [...] 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 Last Assessment & Plan: [facility] Triage Call: Reviewed last C&S - [...] Continue synthroid Coronary artery disease invo lving [place] coronary artery of [place] heart without angina pectoris 07/03/2012 Overview: [...] as of this encounter (statuses as of 05/25/2024) Resolved Problems Problem Noted Date Diagnosed Date [...] 10/13/2009 04/30/2018 ACTIVE CASE MANAGEMENT 07/26/200906/11 Overview: Macrela Dixon RN Arthritis, rheumatoid 06/30/20092011 Overview: Seronegative [...] as of this encounter (statuses as of 05/25/2024) Immunizations Name Administration Dates Next Due COVID-19 mRNA, LNP-s, No Pre serve, 2-Dose Series (reMail) 08/29/2021,10/23/2020,10/02/2020 COVID-19, MRNA-LNP, 23-24, P F, 30 MCG/0.3 mL, 12 YRS AND ABOVE, IM ([facility]) 08/04/2023 Covid-19, Mrna, Lnp-s, Pf, B ivalent, 30 Mcg, IM, 12 yrs and above (reMail) 08/02/2022 Pneumococcal Conjugate Vacc, 13 Valent (Prevnar) [...] Miscellaneous Notes * Telephone Encounter - Murray Santacruz PA-C - 05/25/2024 4:30 PM EDTSigned Prescriptions: Disp Refills Clotrimazole 1 % External Cream (Lotrimin) 60 g 2 Sig: APPLY TO THE AFFECTED AREA(S) TWICE DAILY FOR FOURTEEN DAYS Authorizing Provider: MURRAY SANTACRUZ * Telephone Encounter - Tonie Painting OSA - 05/25/2024 12:27 PM EDT Please authorize with refills, as appropriate. Thank you, BETTY Lyon documented in this encounter Plan of Treatment Upcoming Encounters Date Type Department Care Team (Late st Contact Info) Description 05/26/2024 7:10 AM EDT Laboratory Lab Mobile Phlebotomy [facility] [address] [facility] [place] [address] Mvmg, Gml Mobile Home Draw [address] [facility] [place] [address] 06/11/2024 4:00 PM EDT Home Visit [facility], [facility] [address] [place] [address] Destiny Schultz RN [address] [facility] [place] [address] 10/01/2024 1:00 PM EST Telemedicine Family [address] [place] [phone] Kusum Jones CRNP [address] [place] [address] [place] [address] 10/13/2024 11:30 AM EST Telemedicine Urology, [facility] [address] [facility] [place] [address] Chandler Pena MD [address] [place] [address] 11/24/2024 1:40 PM EDT Office Visit Dermatology [address] [place] [address] Sheryl Pena PA-C [address] [place] [address] [place] [address] 04/18/2025 1:20 PM EDT Telemedicine Family [address] [place] [phone] Verónica Benavides MD [address] [place] [address] [place] [address] Health Maintenance Due Date Last Done Comments [...] Additional history exists CKD PHOS USE SMARTSET 30164 05/05/202504/25, 04/30/2024, 04/02/2024, Additional history exists CKD HGB USE SMARTSET 04597 05/07/202505/07, 05/07/2024, 05/05/2024, Additional history exists Pneumococcal [...] Documents on File Type Date Recorded 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 Power of Attor nathalie Care Teams Clarification Operator Relationship Specialty Start Date End Date Verónica Benavides MD [address] [place] [address] [place] [address] PCP - General Family Medicine 09/16/14 documented as of this encounter
--- OUTSIDE RECORDS SUMMARY | 2024-06-10 12:50 | External Medical Summary | Summary of Care ---
Author Name Unknown Organization [facility] Address [address] [place] [address] Phone [phone] Care Team Providers Care Casino Gaming Inspector Name Role Phone Verónica Benavides MD Primary Care Provide r Reason for Visit * Reason Onset Date Comments [facility]: Maintenance 06/01/2024 Encounter Details Date Type Department Care Team (Late st Contact Info) Description 06/01/2024 Telephone [facility], [facility] [address] [facility] [place] [phone] Carol Portillo RN [address] [place] [address] [facility]: Maintenance Allergies Active Allergy Reactions Criticality Noted Date Comments Adhesive Tape Medium 01/30/2022 Ibuprofen Hives 01/13/2012 Aspirin Hives,Rash 09/15/2000 Sulfamethoxazole-Trimeth oprim Nausea/vomiting,Othe r (Please comment) 10/27/2020 Dizziness Ciprofloxacin Hcl 06/16/2019 Hoarse, dizzy,disoriented Morphine 09/21/2021 Blacked out Penicillins Hives,Rash 09/15/2000 Prednisone 12/30/2017 Weakness/memory changes/blurred vision documented as of this encounter (statuses as of 06/01/2024) Medications Medication Sig Dispensed Refills Start Date End Date Status INFOGRAPHIQSTouch Verio w/Device Kit Use up to 4 [...] Strip 1 05/30/2023 Active OneTouch Delica Plus [id number] :Type 2 diabetes mellitus with hemoglobin A1c goal of less than 8.0% ([facility]) Test up to two times daily or as directed by [facility] pharmacist 200 Each 3 07/11/2023 Active Estrogens Conjugated 0.625 MG/GM Vaginal Cream (Premarin) Administer 0.5 g into the vagina every night at bedtime. 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 Last Assessment & Plan: [facility] Triage Call: Reviewed last C&S - [...] as of this encounter (statuses as of 06/01/2024) Resolved Problems Problem Noted Date Diagnosed Date [...] as of this encounter (statuses as of 06/01/2024) Immunizations Name Administration Dates Next Due COVID-19 mRNA, LNP-s, No Pre serve, 2-Dose Series (batterii) 08/29/2021,10/23/2020,10/02/2020 COVID-19, MRNA-LNP, 23-24, P F, 30 MCG/0.3 mL, 12 YRS AND ABOVE, IM ([employer]) 08/04/2023 Covid-19, Mrna, Lnp-s, Pf, B ivalent, [...] Telephone Encounter - Carol Portillo RN - 06/01/2024 11:09 AM EDT Phone call to daughter to make her aware to give he mother Metolazone today X 1 dose, follow up call scheduled for tomorrow. KATY Lynn Registered Nurse Navigator Triage [facility] * Telephone Encounter - Mak Chaudhari DO - 06/01/2024 9:44 AM EDT [facility] Remote Medical Command [facility] Subprogram: Primary Care at Home Recommendations: OK for Metolazone x 1 today Orders: No orders of the defined types were placed in this encounter. To Do: Please see below for follow up items to be completed and correspondence: FYI to Regla's Care Team director of therapy services Pool please work on the following: contact the caller with advice and orders as above Mka Chaudhari DO Remote Medical Command - [facility] 06/01/2024 Scheduled appointments in the next 60 days: Future Appointments-next 60 days Date/Time Provider Specialty Dept Phone 06/02/2024 9:15 AM CoordinatorLise [facility] [phone] 06/11/2024 4:00 PM Destiny Schultz RN [facility] [phone] 10/01/2024 1:00 PM Kusum Jones CRNP Family Medicine [phone] 10/13/2024 11:30 AM Chandler Pena MD Urology [phone] 11/24/2024 1:40 PM (Arrive by 1:25 PM) Sheryl Pena PA-C Dermatology [phone] 04/18/2025 1:20 PM Verónica Benavides MD Family Medicine [phone] * Telephone Encounter - Carol Portillo RN - 06/01/2024 9:14 AM EDT [facility] director of therapy services Acute Call Date: 06/01/2024 Time: 9:14 AM Name: Regla Castano : 1935 Caller: Josselyn Relationship to daughter No chief complaint on file. HPI: Regla Castano is a 88 year old female whose daughter is calling [facility] to report that Regla's weight has increased over past several day, she is more SOB and swelling to legs is increased. Daughter states she is taking 6 Torsemide daily. Daughter wants to give her 2.5mg of Metolazone today but would like to make [facility] aware and approve it so she can urinate during the day to get thewater off of her. Nursing Assessment: Patient's chief complaint for this call: Edema Shortness of breath Other, describe elevated weight Pain Denies pain Baseline Assessment Able to performing ADLs at baseline (walking, daily tasks, etc.): Unknown Chief Complaint is related to a chronic condition: Yes Chronic Condition: HF Chief Complaint is a change in baseline: Yes, increased weight Patient prescribed oxygen? No Patient has been ordered DME equipment (assistive devices, respiratory equipment, etc.): Unknown Medication Reconciliation: Received flu shot this season: Unknown Taking medication as ordered: Yes Medications ordered/taking to treat reason for call: No Heart failure symptoms: Yes Is Diuretic Titration Protocol (DTP) ordered? Yes Reinforcement Education: Routed to care team for recommendations Follow up call tomorrow Treatment/Plan: Level of call: Non-Acute Recommended treatment plan: Clinical advice given over the phone Call back instructions provided to patient. KATY Lynn Registered Nurse Navigator Triage [facility] documented in this encounter Plan of Treatment Upcoming Encounters Date Type Department Care Team (Late st Contact Info) Description 06/02/2024 9:15 AM EDT Scheduled Telephone [facility], [facility] [address] [place] [address] Coordinator, [facility] [address] [place] [address] 06/11/2024 4:00 PM EDT Home Visit [facility], [facility] [address] [place] [address] Destiny Schultz RN [address] [place] [address] 10/01/2024 1:00 PM EST Telemedicine Family Medicine [address] [place] [phone] Kusum Jones [address] [place] [address] 10/13/2024 11:30 AM EST Telemedicine Urology, [facility] [address] [place] [address] Chandler Pena MD [address] [place] [address] 11/24/2024 1:40 PM EDT Office Visit Dermatology [address] [place] [address] Sheryl Pena PA-C [address] [place] [address] [place] [address] 04/18/2025 1:20 PM EDT Telemedicine Family Medicine [address] [place] [phone] Verónica Benavides MD [address] [place] [address] [place] [address] Health Maintenance Due Date Last Done Comments [...] Additional history exists CKD PHOS USE SMARTSET 52411 05/05/202504/25, 04/30/2024, 04/02/2024, Additional history exists CKD HGB USE SMARTSET 34833 05/26/202505/26, 05/26/2024, 05/07/2024, Additional history exists Pneumococcal [...] Documents on File Type Date Recorded 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
--- OUTSIDE RECORDS SUMMARY | 2024-06-10 12:50 | External Medical Summary | Summary of Care ---
Author Name Unknown Organization [facility] Address [address] [place] [address] Phone [phone] Care Team Providers Care Clinical Assessment Manager Name Role Phone Verónica Benavides MD Primary Care Provide r Reason for Visit * Reason Onset Date Comments Medication Refill 03/01/2024 Encounter Details Date Type Department Care Team (Late st Contact Info) Description 03/01/2024 Telephone [facility], [facility] [address] [facility] [address] [place] [address] Brandt Santacruz PA-C [address] [facility] [place] [address] Medication Refill Allergies Active Allergy Reactions Criticality Noted Date Comments Adhesive Tape Medium 01/30/2022 Ibuprofen Hives 01/13/2012 Aspirin Hives,Rash 09/15/2000 Sulfamethoxazole-Trimeth oprim Nausea/vomiting,Othe r (Please comment) 10/27/2020 Dizziness Ciprofloxacin Hcl 06/16/2019 Hoarse, dizzy,disoriented Morphine 09/21/2021 Blacked out Penicillins Hives,Rash 09/15/2000 Prednisone 12/30/2017 Weakness/memory changes/blurred vision documented as of this encounter (statuses as of 05/31/2024) Medications Medication Sig Dispensed Refills Start Date [...] Strip 1 05/30/2023 Active OneTouch Delica Plus [id number] s:Type 2 diabetes mellitus with hemoglobin A1c [...] possible home visit 1 Each 11/28/2023 Active documented as of this encounter (statuses as of 05/31/2024) Active Problems Problem Noted Date Diagnosed Date [...] Continue synthroid Coronary artery disease invo lving [place] coronary artery of [place] heart without angina pectoris 07/03/2012 Overview: 60% [...] as of this encounter (statuses as of 05/31/2024) Resolved Problems Problem Noted Date Diagnosed Date [...] as of this encounter (statuses as of 05/31/2024) Immunizations Name Administration Dates Next Due COVID-19 mRNA, LNP-s, No Pre serve, 2-Dose Series ([employer]) 08/29/2021,10/23/2020,10/02/2020 COVID-19, MRNA-LNP, 23-24, P F, 30 MCG/0.3 mL, 12 YRS AND ABOVE, IM ([facility] 08/04/2023 Covid-19, Mrna, Lnp-s, Pf, B ivalent, 30 Mcg, IM, 12 yrs and above ([employer]) 08/02/2022 Pneumococcal Conjugate Vacc, 13 Valent (Prevnar) [...] Description 06/11/2024 4:00 PM EDT Home Visit [facility] [address] [place] [address] Destiny Schultz RN [address] [place] [address] 10/01/2024 1:00 PM EST Telemedicine Family Medicine [address] [place] [phone] Kusum Jones [address] [place] [address] 10/13/2024 11:30 AM EST Telemedicine Urology, [facility] [address] [place] [address] Chandler Pena MD [address] [place] [address] 11/24/2024 1:40 PM EDT Office Visit Dermatology [address] [place] [address] Sheryl Pena PA-C [address] [place] [address] [place] [address] 04/18/2025 1:20 PM EDT Telemedicine Family Medicine [address] [place] [phone] Verónica Benavides MD [address] [place] [address] [place] [address] Health Maintenance Due Date Last Done Comments [...] Additional history exists CKD PHOS USE SMARTSET 84215 05/05/202504/25, 04/30/2024, 04/02/2024, Additional history exists CKD HGB USE SMARTSET 07738 05/26/202505/26, 05/26/2024, 05/07/2024, Additional history exists Pneumococcal [...] Documents on File Type Date Recorded 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
--- OUTSIDE RECORDS SUMMARY | 2024-06-10 12:50 | External Medical Summary | Summary of Care ---
Author Name Unknown Organization [facility] Address [address] [place] [address] Phone [phone] Care Team Providers Care Supervisor Sterile Processing Name Role Phone Verónica Benavides MD Primary Care Provide r Reason for Visit * Reason Onset Date Comments Outpatient Testing 04/06/2024 Encounter Details Date Type Department Care Team (Late st Contact Info) Description 04/06/2024 Telephone Family [address] [phone] Verónica Benavides MD [address] [place] [address] [place] [address] Outpatient Testing Allergies Active Allergy Reactions Criticality Noted Date Comments Adhesive Tape Medium 01/30/2022 Ibuprofen Hives 01/13/2012 Aspirin Hives,Rash 09/15/2000 Sulfamethoxazole-Trimeth oprim Nausea/vomiting,Othe r (Please comment) 10/27/2020 Dizziness Ciprofloxacin Hcl 06/16/2019 Hoarse, dizzy,disoriented Morphine 09/21/2021 Blacked out Penicillins Hives,Rash 09/15/2000 Prednisone 12/30/2017 Weakness/memory changes/blurred vision documented as of this encounter (statuses as of 05/26/2024) Medications Medication Sig Dispensed Refills Start Date End Date Status OneTouch Verio w/Device Kit Use up to 4 times a day E11.9 1 Kit 1 Active Bisacodyl 5 MG Oral Tablet Delayed Release Take 2 Tablets by mouth daily as needed for Constipation. Do not use for more than one week. Do not cut, crush or chew 40 Tablet 1 3 Active OneTouch Verio In Vitro Strip (Glucose Blood)Indications: Type 2 diabetes mellitus with stage 3 chronic kidney disease, without long-term current use of insulin ([facility]),Type 2 diabetes mellitus with hemoglobin A1c goal of less than 8.0% ([facility]) TEST UP TO FOUR TIMES DAILY 400 Strip 1 3 Active OneTouch Delica Plus [id number] ns:Type 2 diabetes mellitus with hemoglobin A1c goal of less than 8.0% ([facility]) Test up to two times daily or as directed by [facility] pharmacist 200 Each 3 3 Active Estrogens Conjugated 0.625 MG/GM Vaginal Cream (Premarin) Administer 0.5 g into the vagina every night at bedtime. Pea-sized amount around vulvar area nightly 30 g 5 3 Active DIURETIC TITRATION PLAN If no improvement on day 3, contact [facility] for possible home visit 1 Each 4 Active STOOL SOFTENER 100 MG PO TABS 3-4 tabs daily as needed 024 Discontinued GLUCOSAMINE CHONDR 500 COMPLEX PO CAPS Take by mouth 2 times a day. 024 Discontinued(Re fill) MAGNESIUM OXIDE 400 MG PO TABS one pill each day 5 024 Discontinued(Re fill) Acetaminophen (APAP) 325 MG Tablet Take 1 Tablet by mouth every 6 hours as needed. 024 Discontinued(Me dication List Clean Up) Cyanocobalamin 1000 MCG Oral Tablet (Cyanocobalamin) Take 1 Tablet by mouth in the morning. 1 024 Discontinued(Me dication/Dose Changed) Nystatin 366279 UNIT/GM External Powder (Nystop)Indication s:Lydia rash of groin Apply topically to affected area 2 times a day . 60 g 11 2 024 Discontinued(Me dication List Clean Up) Probiotic Acidophilus BioBeads Oral Capsule Take 1 Capsule by mouth every evening. Just with antibiotics 024 Discontinued(Re fill) D-Mannose 500 MG Oral Capsule Take by mouth 2 times a day. 2 caps two times daily 024 Discontinued(Re fill) Vitamin D-3 25 MCG (1000 UT) Oral Capsule Take 1 Capsule by mouth in the morning. 024 Discontinued(Re fill) Benzonatate 100 MG Oral Capsule Take 1 Capsule by mouth 3 times a day as needed for Cough. 30 Capsule 1 3 024 Discontinued(Me dication List Clean Up) Colchicine 0.6 MG Oral Tablet Take one twice for gout attack 8 Tablet 3 024 Discontinued(Me dication List Clean Up) Promethazine-DM 6.25-15 MG/5ML Oral Syrup Take 5 mL by mouth 4 times a day as needed for Cough. 120 mL 1 3 024 Discontinued(Me dication List Clean Up) Myrbetriq 25 MG Oral Tablet Extended Release 24 Hour (Mirabegron ER) Take 1 Tablet by mouth in the morning. 90 Tablet 3 3 024 Discontinued(Re fill) Levothyroxine Sodium 88 MCG Oral Tablet (Levoxyl)Indicatio ns:Hypothyroidism, unspecified type TAKE ONE TABLET BY MOUTH EVERY MORNING 30 MINS PRIOR TO FIRST MEAL OF THE DAY OR OTHER MEDS 90 Tablet 3 3 024 Discontinued(Re fill) Clotrimazole 1 % External Cream (Lotrimin)Indicati ons:Candidal intertrigo APPLY TO THE AFFECTED AREA(S) TWICE DAILY FOR FOURTEEN DAYS 60 g 2 4 024 Discontinued(Re fill) Potassium Chloride Laura ER 20 MEQ Oral Tablet Extended Release Take 1 Tablet by mouth 2 times a day with morning and evening meals. 180 Tablet 1 4 024 Discontinued(Re fill) Meclizine HCl 25 MG Oral Tablet (Antivert)Indicati ons:Vertigo Take 1 tablet by mouth 3 times a day as needed for dizziness 30 Tablet 5 4 024 Discontinued(Re fill) Ondansetron HCl 4 MG Oral Tablet Take 1 Tablet by mouth every 6 hours as needed for Nausea. 20 Tablet 4 024 Discontinued(Re fill) Cephalexin 500 MG Oral Capsule Take 1 Capsule by mouth in the morning and 1 Capsule at noon and 1 Capsule before bedtime. Do all this for 10 days. 30 Capsule 4 024 Discontinued(Me dication List Clean Up) Trulicity 0.75 MG/0.5ML Subcutaneous Solution Pen-injector (Dulaglutide) Inject 0.75 mg under the skin once a week. 2 mL 3 4 024 Discontinued(Re fill) Omeprazole 20 MG Oral Capsule Delayed Release (PriLOSEC) Take 1 Capsule by mouth in the morning. One hour before the first meal of the day.. 90 Capsule 1 4 024 Discontinued(Re fill) metOLazone 2.5 MG Oral Tablet (Zaroxolyn) Take one tablet only when directed by clinician. 5 Tablet 4 024 Discontinued(Re fill) Nitrofurantoin Monohyd Macro 100 MG Oral Capsule (Macrobid) Take 1 Capsule by mouth in the morning for 5 days. With food until gone. 5 Capsule 4 024 Discontinued(Me dication List Clean Up) Cefdinir 300 MG Oral Capsule (Omnicef) Take 1 Capsule by mouth in the morning and 1 Capsule before bedtime. Do all this for 3 days. 6 Capsule 4 024 Discontinued(Me dication List Clean Up) Spironolactone 25 MG Oral Tablet (Aldactone)Indicat ions:Non-ischemic cardiomyopathy (HCC) TAKE 1/2 TABLET BY MOUTH EVERY MORNING 45 Tablet 3 4 024 Discontinued(Re fill) Cephalexin 500 MG Oral CapsuleIndications :Cellulitis of face Take 1 Capsule by mouth in the morning and 1 Capsule at noon and 1 Capsule before bedtime. Do all this for 7 days. 21 Capsule 4 024 Discontinued(Me dication List Clean Up) Doxycycline Hyclate 100 MG Oral CapsuleIndications :Cellulitis of face Take 1 Capsule by mouth in the morning and 1 Capsule before bedtime. Do all this for 7 days. Until gone.. 14 Capsule 4 024 Discontinued(Me dication List Clean Up) Phenazopyridine HCl 200 MG Oral Tablet (Pyridium) Take 1 Tablet by mouth 3 times a day as needed for Pain, Severe. After meals for pain with urination 6 Tablet 4 024 Discontinued(Re fill) Cephalexin 500 MG Oral Capsule Take 1 Capsule by mouth in the morning and 1 Capsule before bedtime. Do all this for 14 days. 28 Capsule 4 024 Discontinued(Me dication List Clean Up) Fosfomycin Tromethamine 3 GM Oral Packet (Monurol) Take 3 g by mouth every 3 days. 3 Packet 4 024 Discontinued Fluorouracil 5 % External Cream (Efudex) Apply to site on right cheek twice daily x 6 weeks 40 g 4 024 Discontinued(Me dication List Clean Up) Torsemide 20 MG Oral Tablet (Demadex)Indicatio ns:Heart failure, systolic, due to idiopathic cardiomyopathy (HCC) 60 mg in the morning and 60 mg in the afternoon 4 024 Discontinued Nitrofurantoin Monohyd Macro 100 MG Oral Capsule (Macrobid) Take 1 Capsule by mouth every night at bedtime. 90 Capsule 1 4 024 Discontinued(Re fill) documented as of this encounter (statuses as of 05/26/2024) Active Problems Problem Noted Date Diagnosed Date [...] as of this encounter (statuses as of 05/26/2024) Resolved Problems Problem Noted Date Diagnosed Date [...] as of this encounter (statuses as of 05/26/2024) Immunizations Name Administration Dates Next Due COVID-19 mRNA, LNP-s, No Pre serve, 2-Dose Series ([employer]) 08/29/2021,10/23/2020,10/02/2020 COVID-19, MRNA-LNP, 23-24, P F, 30 MCG/0.3 mL, 12 YRS AND ABOVE, IM ([facility]) 08/04/2023 Covid-19, Mrna, Lnp-s, Pf, B ivalent, 30 Mcg, IM, 12 yrs and above ([employer]) 08/02/2022 Pneumococcal Conjugate Vacc, 13 Valent (Prevnar) [...] Telephone Encounter - Vilma Broderick CMA - 04/12/2024 2:44 PM EDT Please schedule to draw labs. * Telephone Encounter - Verónica Benavides MD - 04/06/2024 4:38 PM EDT Please have mobile lab draw CBC w/diff, folic acid, B12, and iron screen in 1 month as ordered documented in this encounter Plan of Treatment Upcoming Encounters Date Type Department Care Team (Late st Contact Info) Description 06/11/2024 4:00 PM EDT Home Visit [facility] [address] [facility] [place] [address] Destiny Schultz RN [address] [place] [address] 10/01/2024 1:00 PM EST Telemedicine Family Medicine [address] [place] [phone] Kusum Jones CRNP [address] [place] [address] [place] [address] 10/13/2024 11:30 AM EST Telemedicine Urology, [facility] [address] [facility] [place] [address] Chandler Pena MD [address] [place] [address] 11/24/2024 1:40 PM EDT Office Visit Dermatology [address] [place] [address] Sheryl Pena PA-C [address] [place] [address] [place] [address] 04/18/2025 1:20 PM EDT Telemedicine Family Medicine [address] [place] [phone] Verónica Benavides MD [address] [place] [address] [place] [address] Health Maintenance Due Date Last Done Comments [...] 11/01/2022, Additional history exists TSH 04/02/2025 04/02/2024, 08/2022, 02/24/2023, Additional history exists Albumin/Creatinine Ratio 04/19/2025 024, 02/07/2023, 01/18/2022, Additional history exists CKD PHOS USE SMARTSET 29084 05/05/202504/25, 04/30/2024, 04/02/2024, Additional history exists CKD HGB USE SMARTSET 65851 05/07/202505/07, 05/07/2024, 05/05/2024, Additional history exists Pneumococcal [...] Documents on File Type Date Recorded 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
--- OUTSIDE RECORDS SUMMARY | 2024-06-10 12:50 | External Medical Summary ---
Author Name Unknown Address Unknown Organization K01:[facility] [place] - [address] [facility] [address] Laboratory Report Ordering Provider Test Date Status APOLINAR ARMANDO 05/26/2024 10:29:00 Final Observation Date Value Abnormality Reference (Units ) Status SYNC LEUKOCYTES IN BLOOD BY AUTOMATED COUNT 05/26/2024 10:29:00 7.42 4.00-10.80 (K/uL) Final Segs 05/26/2024 10:29:00 59.4 40.0-75.0 (%) Final Lymphs % 05/26/2024 10:29:00 28.3 18.0-42.0 (%) Final Monos 05/26/2024 10:29:00 10.4 1.0-11.0 (%) Final Eosinophils 05/26/2024 10:29:00 0.8 0.0-6.0 (%) Final Basos 05/26/2024 10:29:00 0.7 0.0-2.0 (%) Final Immature Granulocyte, Percent 05/26/2024 10:29:00 0.4 0.0-2.0 (%) Final Absolute Segs 05/26/2024 10:29:00 4.41 1.80-7.70 (K/uL) Final Lymphs, absolute 05/26/2024 10:29:00 2.10 1.00-4.80 (K/ul) Final Monos, Abs 05/26/2024 10:29:00 0.77 0.00-1.10 (K/uL) Final Eos, Abs 05/26/2024 10:29:00 0.06 0.00-0.70 (K/uL) Final Basos, Abs 05/26/2024 10:29:00 0.05 0.00-0.20 (K/uL) Final Immature Granulocytes, Number 05/26/2024 10:29:00 0.03 0.00-0.20 (K/uL) Final Performing Location [facility] [place] - [address] [facility] [id number]
--- OUTSIDE RECORDS SUMMARY | 2024-06-10 12:51 | External Medical Summary | Summary of Care ---
Author Name Unknown Organization [facility] Address [address] [place] [address] Phone [phone] Care Team Providers Care Logistics Supervisor Name Role Phone Verónica Benavides MD Primary Care Provide r Encounter Details Date Type Department Care Team (Late st Contact Info) Description 05/17/2024 12:30 PM EDT [facility] [address] [place] [address] Destiny Schultz, RN [address] [place] [address] Allergies Active Allergy Reactions Criticality Noted Date Comments Adhesive Tape Medium 01/30/2022 Ibuprofen Hives 01/13/2012 Aspirin Hives,Rash 09/15/2000 Sulfamethoxazole-Trimeth oprim Nausea/vomiting,Othe r (Please comment) 10/27/2020 Dizziness Ciprofloxacin Hcl 06/16/2019 Hoarse, dizzy,disoriented Morphine 09/21/2021 Blacked out Penicillins Hives,Rash 09/15/2000 Prednisone 12/30/2017 Weakness/memory changes/blurred vision documented as of this encounter (statuses as of 05/19/2024) Medications Medication Sig Dispensed Refills Start Date [...] Strip 1 05/30/2023 Active OneTouch Delica Plus [id number] s:Type 2 diabetes mellitus with hemoglobin A1c [...] 07/14/2023 Active Clotrimazole 1 % External Cream (Lotrimin)Indicatio ns:Candidal intertrigo APPLY TO THE AFFECTED AREA(S) TWICE DAILY FOR FOURTEEN DAYS 60 g 2 10/22/2023 Active DIURETIC TITRATION PLAN If no improvement on day 3, contact [facility] for possible home visit 1 Each [...] evening meals. 180 Tablet 1 05/12/2024 Active Torsemide 20 MG Oral Tablet (Demadex)Indication s:Heart failure, systolic, due to idiopathic cardiomyopathy (HCC) take THREE tablets BY MOUTH EVERY MORNING, TWO tablets IN afternoon - additional tablet IN afternoon ONLY if directed by healthcare provider FOR weight gain of THREE lbs OR more 180 Tablet 3 05/12/2024 Active Additional Information Patient taking differently: 20 mg Oral BID (.AM/PM), take THREE tablets BY MOUTH BID, Reported on 05/17/2024 Trulicity 0.75 MG/0.5ML Subcutaneous Solution Pen-injector (Dulaglutide) [...] XL)Indications:Non- ischemic cardiomyopathy (HCC),Coronary artery disease involving ottawa coronary artery of ottawa heart without angina pectoris,HTN, goal below 140/90 [...] a day as needed for Cough. Active Nystatin 397845 UNIT/GM External Powder (Nystop)Indications :Lydia rash of groin Apply topically to affected area 2 times a day . 60 g 11 01/03/2022 05/17/20 24 Discontinu ed(Medicat ion List Clean Up) Fluorouracil 5 % External Cream (Efudex) Apply to site on right cheek twice daily x 6 weeks 40 g 03/22/2024 05/17/20 24 Discontinu ed(Medicat ion List Clean Up) documented as of this encounter (statuses as of 05/19/2024) Active Problems Problem Noted Date Diagnosed Date [...] Continue synthroid Coronary artery disease invo lving ottawa coronary artery of [place] heart without angina pectoris 07/03/2012 Overview: 60% [...] as of this encounter (statuses as of 05/19/2024) Resolved Problems Problem Noted Date Diagnosed Date [...] as of this encounter (statuses as of 05/19/2024) Immunizations Name Administration Dates Next Due COVID-19 mRNA, LNP-s, No Pre serve, 2-Dose Series ([employer]) 08/29/2021,10/23/2020,10/02/2020 COVID-19, MRNA-LNP, 23-24, P F, 30 MCG/0.3 mL, 12 YRS AND ABOVE, IM ([employer]) 08/04/2023 Covid-19, Mrna, Lnp-s, Pf, B ivalent, 30 Mcg, IM, 12 yrs and above ([employer]) 08/02/2022 Pneumococcal Conjugate Vacc, 13 Valent (Prevnar) [...] Sign Reading Time Taken Comments Blood Pressure 118/60 05/17/2024 2:04 PM EDT Pulse 64 05/17/2024 2:04 PM EDT Temperature 35.6 C (96.1 F) 05/17/2024 2:04 PM ED T Respiratory Rate 18 05/17/2024 2:04 PM EDT Oxygen Saturation 97% 05/17/2024 2:04 PM EDT Inhaled Oxygen Concentration - - Weight - - Height - - Body Mass Index - - documented in this encounter Progress Notes * Destiny Schultz RN - 05/17/2024 1:28 PM EDT Current Concerns: Patient seen for JERICHO#1- Admitted to [facility] 04/24 r/t fall onto knees- inability to ambulate. Transferred to [facility] 04/28/24 for rehab- PMH of recurrent UTIs, often with ESBL E Coli followed by urology, hypertension, chronic systolic CHF and type 2 diabetes mellitus with stage 3a CKD, lymphedema, morbid obesity, current treatment forSCC of right cheek, CAD, severe aortic stenosis, hypothyroidism, generalized osteoarthritis, dyslipidemia, GERD, and ventral hernia Discharged home 05/15/24 with Patrick Beebe- SN/OT/PT Daughter and caregiver present for visit. Weight today 238.3- baseline weight 232 Patient reports feeling improved. Glad to be home. VS wnl Lungs clear but diminished Sob with exertion Chronic BLE lymphedema Voiding without difficulty- daughter reports urine was cloudy- foul smelling. Restarted Macrobid daily yesterday. Appetite good Taking fluids well- 4 bottles day TT to Brandt Santacruz PA-C- regarding above patient to take Metolazone with extra KCL 20 meq today. Also- hold off on urine specimen d/t restarting Macrobid yesterday Physical Exam: Physical Exam Constitutional: Appearance: Normal appearance. Cardiovascular: [...] focal deficit present. Mental Status: She is alert. Psychiatric: Mood and Affect: Mood normal. Behavior: Behavior normal. Review of Systems: Review of Systems Constitutional: Negative. HENT: Negative. Respiratory: Positive for shortness of breath. Cardiovascular: Positive for leg swelling. Gastrointestinal: Negative. Genitourinary: Negative. Musculoskeletal: Positive for arthralgias and gait problem. Skin: Negative. Hematological: Negative. Psychiatric/Behavioral: Negative. Care Plan Goal Progress: Patient will maintain optimal mobility & activity level. (Progressing) Start: 05/19/24 Expected End: 08/17/24 Patient will achieve & maintain optimal fluid balance. (Progressing) Start: 05/19/24 Expected End: 08/17/24 Orders Placed: No orders of the defined types were placed in this encounter. Medications Given: Care Gaps: Care Gaps Care gaps closed this contact:: Education (05/19/24 0853) Type of education: Clinical/disease (05/19/2453) documented in this encounter Plan of Treatment Upcoming Encounters Date Type Department Care Team (Late st Contact Info) Description 05/21/2024 2:20 PM EDT Office Visit Family [address] [place] [phone] Verónica Benavides MD [address] [place] [address] [place] [phone] 05/24/2024 8:30 AM EDT [facility] Visit [facility] [place] [address] [place] [address] Destiny Schultz RN [address] [facility] [place] [address] 06/11/2024 4:00 PM EDT [facility] Visit [facility] [place] [address] [place] [address] Destiny Schultz RN [address] [facility] [place] [address] 10/01/2024 1:00 PM EST Telemedicine Family [address] [place] [phone] Kusum Jones CRNP [address] [place] [address] [place] [address] 10/13/2024 11:30 AM EST Telemedicine Urology, [facility] [address] [facility] [place] [address] Chandler Pena MD [address] [place] [address] 11/24/2024 1:40 PM EDT Office Visit Dermatology [address] [place] [address] Sheryl Pena PA-C [address] [place] [address] [place] [address] 04/18/2025 1:20 PM EDT Telemedicine Family Medicine [address] [place] [phone] Verónica Benavides MD [address] [place] [address] [place] [address] Health Maintenance Due Date Last Done Comments [...] 08/08/2022, 02/24/2023, Additional history exists Albumin/Creatinine Ratio 04/19/20252 024, 02/07/2023, 01/18/2022, Additional history exists CKD PHOS USE SMARTSET 54076 05/05/202504/25, 04/30/2024, 04/02/2024, Additional history exists CKD HGB USE SMARTSET 19521 05/07/202505/07, 05/07/2024, 05/05/2024, Additional history exists Pneumococcal [...] on File Type Date Recorded 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
--- OUTSIDE RECORDS SUMMARY | 2024-06-10 12:51 | External Medical Summary | Summary of Care ---
Author Name Unknown Organization [facility] Address [address] [place] [address] Phone [phone] Care Team Providers Care Account Services Analyst Name Role Phone Verónica Benavides MD Primary Care Provide r Reason for Visit * Reason Onset Date Comments [facility]: Maintenance 05/13/2024 Encounter Details Date Type Department Care Team (Late st Contact Info) Description 05/13/2024 11:30 AM EDT Scheduled Telephone [facility], [facility] [address] [place] [address] Baylee Sandhu, [address] [place] [address] Allergies Active Allergy Reactions Criticality Noted Date Comments Adhesive Tape Medium 01/30/2022 Ibuprofen Hives 01/13/2012 Aspirin Hives,Rash 09/15/2000 Sulfamethoxazole-Trimeth oprim Nausea/vomiting,Othe r (Please comment) 10/27/2020 Dizziness Ciprofloxacin Hcl 06/16/2019 Hoarse, dizzy,disoriented Morphine 09/21/2021 Blacked out Penicillins Hives,Rash 09/15/2000 Prednisone 12/30/2017 Weakness/memory changes/blurred vision documented as of this encounter (statuses as of 05/13/2024) Medications Medication Sig Dispensed Refills Start Date End Date Status OneTouch Verio w/Device Kit Use up to 4 times a day E11.9 1 Kit 08/28/2020 Active Nystatin 710911 UNIT/GM External Powder (Nystop)Indications: Lydia rash of [...] TIMES DAILY 400 Strip 1 05/30/2023 Active DialogicTouch Delica Plus [id number] :Type 2 diabetes mellitus with hemoglobin A1c goal of less than 8.0% ([facility]) Test up to two times daily or as directed by [facility] pharmacist 200 Each 3 [...] Additional Information Patient not taking.Reported on 10/22/2023 DIURETIC TITRATION PLAN If no improvement on day 3, contact [facility] for possible home visit 1 Each 11/28/2023 Active Fluorouracil 5 % External Cream (Efudex) Apply to site on right cheek twice daily x 6 weeks 40 g 03/22/2024 Active Phenazopyridine HCl 200 MG Oral Tablet [...] 05/12/2024 Active Torsemide 20 MG Oral Tablet (Demadex)Indications :Heart failure, systolic, due to idiopathic cardiomyopathy (HCC) take THREE tablets BY MOUTH EVERY MORNING, TWO tablets IN afternoon - additional tablet IN afternoon ONLY if directed by healthcare provider FOR weight gain of THREE lbs OR more 180 Tablet 3 05/12/2024 Active Trulicity 0.75 MG/0.5ML Subcutaneous Solution [...] the morning. 90 Tablet 3 05/12/2024 Active documented as of this encounter (statuses as of 05/13/2024) Active Problems Problem Noted Date Diagnosed Date [...] as of this encounter (statuses as of 05/13/2024) Resolved Problems Problem Noted Date Diagnosed Date [...] as of this encounter (statuses as of 05/13/2024) Immunizations Name Administration Dates Next Due COVID-19 mRNA, LNP-s, No Pre serve, 2-Dose Series ([employer]) 08/29/2021,10/23/2020,10/02/2020 COVID-19, MRNA-LNP, 23-24, P F, 30 MCG/0.3 mL, 12 YRS AND ABOVE, IM ([facility]) 08/04/2023 Covid-19, Mrna, Lnp-s, Pf, B ivalent, 30 Mcg, IM, 12 yrs and above ([employer]) 08/02/2022 Influenza, Whole Virus 08/07/2000 Pneumococcal Conjugate [...] encounter Miscellaneous Notes * Telephone Encounter - Baylee Sandhu CM - 05/13/2024 10:42 AM EDT Call placed to [facility]. Confirmed that pt is still at facility. Transferred to [facility] requesting a call back Incoming call from [facility] at [facility]. Pt scheduled to [facility] Friday with Patrick Watts . will schedule JERICHO visit and route to care team as JUNIOR Sandhu Computer Operations Analyst [email or web address] documented in this encounter Plan of Treatment Upcoming Encounters Date Type Department Care Team (Late st Contact Info) Description 05/14/2024 7:00 AM EDT Laboratory Lab Mobile Phlebotomy [facility] [address] [place] [address] [facility], [facility] Mobile Home Draw [address] [place] [address] 05/17/2024 12:30 PM EDT [facility] Visit [facility] [address] [place] [address] Destiny Schultz, RN [address] [place] [address] 05/21/2024 2:20 PM EDT Office Visit Family Medicine [address] [phone] Verónica Benavides MD [address] [place] [address] [place] [address] 05/24/2024 8:30 AM EDT [facility] Visit [facility] [address] [place] [address] Destiny Schultz RN [address] [place] [place] [address] 10/01/2024 1:00 PM EST Telemedicine Family Medicine [address] [phone] Kusum Jones CRNP [address] [place] [address] [place] [address] 10/13/2024 11:30 AM EST Telemedicine Urology, [facility] [address] [place] [address] Chandler Pena MD [address] [place] [address] 11/24/2024 1:40 PM EDT Office Visit Dermatology [address] [place] [address] Sheryl Pena PA-C [address] [place] [address] [place] [address] 04/18/2025 1:20 PM EDT Telemedicine Family Medicine [address] [place] [phone] Verónica Benavides MD [address] [place] [address] [place] [address] Health Maintenance Due Date Last Done Comments [...] Additional history exists CKD PHOS USE SMARTSET 23379 05/05/202504/25, 04/30/2024, 04/02/2024, Additional history exists CKD HGB USE SMARTSET 78925 05/07/202505/07, 05/07/2024, 05/05/2024, Additional history exists Pneumococcal [...] Documents on File Type Date Recorded Patient Crab Fisherman Expl anation Advance Directives and Living Will 08/10/2021 ADVANCE DIRECTIVE / LIVING WILL LIVING WILL Healthcare Agents on File Name Relationship Healthcare Agent [facility] p Communication [facility] Care Power of Attor nathalie Care Teams Account Services Analyst Relationship Specialty Start Date End Date Verónica Benavides MD [address] [place] [address] [place] [address] PCP - General Family Medicine 09/16/14 documented as of this encounter
--- OUTSIDE RECORDS SUMMARY | 2024-06-10 12:51 | External Medical Summary | Summary of Care ---
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) Allergies Active Allergy Reactions Criticality Noted Date Comments Adhesive Tape Medium 01/30/2022 Ibuprofen Hives 01/13/2012 Aspirin Hives,Rash 09/15/2000 Sulfamethoxazole-Trimeth oprim Nausea/vomiting,Othe r (Please comment) 10/27/2020 Dizziness Ciprofloxacin Hcl 06/16/2019 Hoarse, dizzy,disoriented Morphine 09/21/2021 Blacked out Penicillins Hives,Rash 09/15/2000 Prednisone 12/30/2017 Weakness/memory changes/blurred vision documented as of this encounter (statuses as of 05/18/2024) Medications Medication Sig Dispensed Refills Start Date End Date Status ePark SystemsTouch Verio w/Device Kit Use up to 4 times a day E11.9 1 Kit 08/28/2020 Active Bisacodyl 5 MG Oral Tablet Delayed Release Take 2 Tablets by mouth daily as needed for Constipation. Do not use for more than one week. Do not cut, crush or chew 40 Tablet 1 01/24/2023 Active ePark SystemsTouch Verio In Vitro Strip (Glucose Blood)Indications:T ype 2 diabetes mellitus with stage 3 chronic kidney disease, without long-term current use of insulin (HCC),Type 2 diabetes mellitus with hemoglobin A1c goal of less than 8.0% ([facility]) TEST UP TO FOUR TIMES DAILY 400 Strip 1 05/30/2023 Active ePark SystemsTouch Delica Plus [id number] s:Type 2 diabetes mellitus with hemoglobin A1c goal of less than 8.0% ([facility]) Test up to two times daily or as directed by [facility] pharmacist 200 Each 3 07/11/2023 Active [...] pain with urination 6 Tablet 04/19/2024 Active documented as of this encounter (statuses as of 05/18/2024) Active Problems Problem Noted Date Diagnosed Date [...] as of this encounter (statuses as of 05/18/2024) Resolved Problems Problem Noted Date Diagnosed Date [...] as of this encounter (statuses as of 05/18/2024) Immunizations Name Administration Dates Next Due COVID-19 mRNA, LNP-s, No Pre serve, 2-Dose Series ([employer]) 08/29/2021,10/23/2020,10/02/2020 COVID-19, MRNA-LNP, 23-24, P F, 30 MCG/0.3 mL, 12 YRS AND ABOVE, IM ([employer] [facility]) 08/04/2023 Covid-19, Mrna, Lnp-s, Pf, B ivalent, 30 Mcg, IM, 12 yrs and above ([employer]) 08/02/2022 Pneumococcal Conjugate Vacc, 13 Valent (Prevnar) [...] as of this encounter Progress Notes * Suad Santos PA-C - 05/18/2024 1:08 PM EDT Name: Regla Castano Date of :1935 TRANSITION EVENT: Type: Skilled visit Date: May 11 Code Status: Full Code This note pertains to care provided at [facility]. Please see facility medical record for original note. This note is not to be edited or addended in [employer]. Editing or addending needs to occur in the facilities medical record. Subjective: Regla Castano is a 88 year old female. Patient being seen for skilled visit Chief Complaint Patient presents with Skilled Visit HPI: pt here for rehabilitation due to hospital admisson due to weakness, ambulatory dysfunction and STEVE. Pt is stable. She is ambulating with Therapy. No further hip and knee pain. Vital signs stable. Eating, drinking and sleeping well. BMs and voiding well. Wearing support hose and elevating legsas much as possible. Plans are for discharge end of this week. CBC Results: Results for orders placed or performed in visit on 05/07/24 CBC Result Value Ref Range WBC 9.52 4.00 - 10.80 K/uL RBC 2.24 3.85 - 5.15 M/uL HGB 8.6 (L) 12.0 - 15.3 g/dL HCT 26.9 (L) 36.0 - 45.2 % MCV 120.1 81.5 - 97.5 fL MCH 38.4 27.0 - 34.0 pg MCHC 32.0 32.0 - 36.0 g/dL RDW 14.2 11.5 - 15.5 % PLT 340 140 - 400 K/uL MPV 9.9 6.6 - 11.1 fL Hemoglobin Results: Lab Results Component Value Date/Time HGB 8.6 (L) 05/07/2024 05:35 AM HGB 9.0 (L) 05/05/2024 05:38 AM HGB 8.9 (L) 04/30/2024 05:31 AM HGB 12.5 08/04/2020 12:02 PM HGB 11.2 (L) 07/14/2020 12:47 PM HGB 11.6 (L) 07/07/2020 11:05 AM Basic Panel Results: Results for orders placed or performed in visit on 05/07/24 BASIC METABOLIC PANEL Result Value Ref Range BUN 34 (H) 6 - 20 mg/dL CREATININE 1.3 (H) 0.5 - 1.0 mg/dL EGFR 40 (L) >=60 mL/min SODIUM 139 135 - 146 mmol/L POTASSIUM 4.4 3.5 - 5.1 mmol/L CHLORIDE 100 98 - 107 mmol/L CO2 28 22 - 32 mmol/L ANION GAP 11 7 - 15 mmol/L GLUCOSE 138 (H) 70 - 120 mg/dL CALCIUM 8.9 8.4 - 10.2 mg/dL Creatinine Results: Lab Results Component Value Date/Time CREATININE - [facility] 1.3 (H) 05/07/2024 05:35 AM CREATININE - [facility] 1.5 (H) 05/05/2024 05:38 AM CREATININE - [facility] 1.2 (H) 04/30/2024 05:31 AM CREATININE - [facility] 1.1 (H) 09/13/2020 12:57 PM CREATININE - [facility] 1.3 (H) 08/09/2020 08:40 AM CREATININE - [facility] 1.2 (H) 08/04/2020 12:02 PM CREATININE, RANDOM URINE - [facility] 38 04/19/2024 09:50 AM CREATININE, RANDOM URINE - [facility] 45 02/07/2023 04:27 PM CREATININE, RANDOM URINE - [facility] 59 01/18/2022 12:00 PM CREATININE, RANDOM URINE - [facility] 31 05/24/2019 04:18 PM CREATININE, RANDOM URINE - [facility] 95 12/23/2017 03:02 PM CREATININE, RANDOM URINE - [facility] 13 01/16/2017 02:20 PM Potassium Results: Lab Results Component Value Date/Time POTASSIUM - [facility] 4.4 05/07/2024 05:35 AM POTASSIUM - [facility] 4.3 05/05/2024 05:38 AM POTASSIUM - [facility] 4.5 04/30/2024 05:31 AM POTASSIUM - [facility] 4.5 09/13/2020 12:57 PM POTASSIUM - [facility] 4.7 08/09/2020 08:40 AM POTASSIUM - [facility] 4.6 08/04/2020 12:02 PM Sodium Results: Lab Results Component Value Date/Time SODIUM - [facility] 139 05/07/2024 05:35 AM SODIUM - [facility] 142 05/05/2024 05:38 AM SODIUM - [facility] 141 04/30/2024 05:31 AM SODIUM - [facility] 140 09/13/2020 12:57 PM SODIUM - [facility] 138 08/09/2020 08:40 AM SODIUM - [facility] 136 08/04/2020 12:02 PM Patient Active Problem List Diagnosis GENERAL OSTEOARTHROSIS Hypothyroidism DYSLIPIDEMIA, GOAL LDL BELOW 100 Aspirin allergy LBBB (left bundle branch block) First degree atrioventricular block Coronary artery disease involving [place] coronary artery of [place] heart without angina pectoris ACEI/ARB contraindicated Type 2 diabetes mellitus with hemoglobin A1c goal of less than 8.0% ([facility]) Non-ischemic cardiomyopathy ([facility]) Heart failure, systolic, due to idiopathic cardiomyopathy ([facility]) Aortic valve stenosis 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, without long-term current use of insulin ([facility]) Lymphedema of both lower extremities Benign paroxysmal vertigo of both ears Gastroesophageal reflux disease without esophagitis Type 2 diabetes mellitus with mild nonproliferative diabetic retinopathy without macular edema, right eye ([facility]) 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 Anemia Past Medical History: Diagnosis Date ACEI/ARB contraindicated [...] repair RLL TOTAL HYSTERECTOMY age 48 fibroids Family History Problem Relation Name Age of Onset Heart Disorder Mother mi age 50 Hypertension Mother Diabetes Mother Family Status Relation Status Mo at age 78 DM Fa at age 69 Bladder cancer Sis Alive Bro Alive Bro Alive Sis at age 43 Airplane accident Robby Alive Robby Alive Son Alive Social History Socioeconomic History Marital status: Spouse [...] Needs: Not on file Social Connections: Unknown (05/18/2024) Social Connections How often do you feel [...] Hives and Rash Prednisone Weakness/memory changes/blurred vision I have reviewed medications and allergies. Please refer to MAR in the facility's medical record forthe most up-to-date medication list as this cannot be edited in [employer]. Review of Systems: Constitutional ROS: No change in weight, less weakness, less fatigue and No fevers, sweats, or chills Nose ROS: No nasal stuffiness and No significant epistaxis Mouth/Throat ROS: No thrush or No sore throat Neck ROS: No lumps or masses, No swollen glands, No recent swelling in thyroid area and No significant pain in neck Pulmonary ROS: No cough, sputum, or hemoptysis, No wheezing, No shortness of breath and No recent change in breathing Cardiovascular ROS: No chest pain, No shortness of breath, No edema, No palpitations and No syncope Gastrointestinal ROS: No abdominal pain, No change in bowel habits, No significant change in appetite, No nausea, vomiting, diarrhea, or constipation and No dysphagia Musculoskeletal/Extremities ROS: see HPI Skin/Integumentary ROS: No rash and No itching Neurologic ROS: No headaches and No seizures Psychiatric ROS: No depression, No anxiety and No psychosis Sleep: No sleep disorders OBJECTIVE: PHYSICALEXAM: I reviewed the most recent facilities vitals. General: alert, no distress, well nourished and well developed Eye Exam: Conjunctiva are pink and non-injected, sclera clear Nose: no mucosal erythema, no mucosal edema, no purulent discharge Oropharynx: no exudate, no erythema, lips, buccal mucosa, and tongue normal and mucous membranes are moist Neck: supple, no adenopathy, non-tender, neck veins flat, trachea midline Heart: regular rate & rhythm, no murmurs and no gallops Lungs: normal respiratory rate and rhythm, no chest wall tenderness, lungs clear to auscultation Abdomen: abdomen soft, non-tender, normal bowel sounds and no masses or organomegaly Extremities: +lymphedema, no clubbing, no cyanosis Skin: skin color, texture, turgor are normal, no rashes or significant lesions ASSESSMENT: Ambulatory dysfunction (Primary) Stable currently Continue with Therapy as directed STEVE (acute kidney injury) (HCC) Renal function back to baseline Continue present medications and dosages. 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 PLAN: Reviewed CBC, BMP, Lytes and Continue present medication(s):as ordered. Senior Living Home Treatment Given: as above Electronically signed by: Suad Santos PA-C Over 35 minutes were spent in this visit more than half the time was spent counselling or coordinating care. documented in this encounter Plan of Treatment Upcoming Encounters Date Type Department Care Team (Late st Contact Info) Description 05/21/2024 2:20 PM EDT Office Visit Family [address] [place] [phone] Verónica Benavides MD [address] [place] [address] [place] [address] 05/24/2024 8:30 AM EDT Home Visit [facility] at [facility] [address] [facility] [place] [address] Destiny Schultz, POPPY [address] [place] [address] 06/11/2024 4:00 PM EDT [facility] Visit [facility], [facility] [address] [facility] [place] [address] Destiny Schultz, POPPY [address] [facility] [place] [address] 10/01/2024 1:00 PM EST Telemedicine Family Medicine [address] [place] [phone] Kusum Jones CRNP [address] [place] [address] [place] [address] 10/13/2024 11:30 AM EST [facility]med[facility] [place] [address] Chandler Pena MD [address] [facility] [place] [address] 11/24/2024 1:40 PM EDT Office Visit Dermatology [address] [place] [address] Sheryl Pena PA-C [address] [place] [address] [place] [address] 04/18/2025 1:20 PM EDT Telemedicine Family Medicine [address] [place] [phone] Verónica Benavides MD [address] [place] [address] [place] [address] Health Maintenance Due Date Last Done Comments [...] Additional history exists CKD PHOS USE SMARTSET 02227 05/05/202504/25, 04/30/2024, 04/02/2024, Additional history exists CKD HGB USE SMARTSET 54897 05/07/202505/07, 05/07/2024, 05/05/2024, Additional history exists Pneumococcal [...] as of this encounter Visit Diagnoses Diagnosis Ambulatory dysfunction- Primary STEVE (acute kidney injury) (HCC) Acute kidney failure, unspecified 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) documented in this encounter Advance Directives Documents on File Type Date Recorded Patient Inside [employer]er Expl anation Advance Directives and Living Will 08/10/2021 ADVANCE DIRECTIVE / LIVING WILL LIVING WILL Healthcare Agents on File Name Relationship Healthcare Agent Relationsmd p Communication Josselyn Judd Adult Child Health Care Power of Attor nathalie Care Teams Employee Benefits Specialist Relationship Specialty Start Date End Date Verónica Benavides MD [address] [place] [address] [place] [address] PCP - General Family Medicine 09/16/14 documented as of this encounter
--- OUTSIDE RECORDS SUMMARY | 2024-06-10 12:51 | External Medical Summary | Summary of Care ---
Author Name Unknown Organization [facility] Address [address] [place] [address] Phone [phone] Care Team Providers Care Citrix Systems Administrator Name Role Phone Verónica Benavides MD Primary Care Provide r Reason for Referral * Evaluate & Treat - Unlimited Visits (Within 10 days (routine)) - Authorized Specialty Diagnoses / Procedures Referred By Chaz vaz Referred To Contact HOME CARE / Home Care Diagnoses Heart failure, systolic, due to idiopathic cardiomyopathy (HCC) Suad Santos PA-C [address] [place] [id number] Referral ID Status Reason Start Date Expiration Date Visits Requested Visits Authorized [id number] Authorized Specialty Services Required 05/12/[phone] Question Answer Referral Priority Within 10 days (routine) Where should this appointment be scheduled? [facility] Comments Documentation of Jczg-ij-Cvab Encounter Addendum Patient Name: Regla Castano I certify that this patient is under my care and that I, or a nurse practitioner or physician's commissary assistant working with me, had a cbpj-sh-amdo encounter that meets the physician uhpy-qk-qiis encounter requirements with this patient on: 05/12/24 The encounter with the patient was in whole, or in part, for the following medical condition, which is the primary reason for home health care (List medical condition): AMBULATORY DYSFUNCTION, DM, CHF, I certify that, based on my findings, the following services are medically necessary home health services: Nursing, Physical Therapy, and OT To provide the following care/treatments: (All hospitalists not following the patient after discharge should complete this section): Primary Care Physician to follow home care plan of care after discharge: 5 TO 7 DAYS My clinical findings support the need for the above services because: LIMITED MOBILITY DUE TO DJD, CHF Further, I certify that my clinical findings support that this patient is homebound (i.e. Absences from home require considerable and taxing effort and are for medical reasons or oriental orthodox services or infrequently or of short duration when for other reason) because: Physician Signature: Date of Signature: Physician Printed Name: Suad Santos PA-C Encounter Details Date Type Department Care Team (Late st Contact Info) Description 05/12/2024 Orders Only [address] [address] Suad Santos PA-C [address] [place] [address] Heart failure, systolic, due to idiopathic cardiomyopathy (HCC)*; Vertigo; Non-ischemic cardiomyopathy (HCC); Hypothyroidism, unspecified type; Coronary artery disease involving walker river coronary artery of walk[place] river heart without angina pectoris; HTN, goal below 140/90 Allergies Active Allergy Reactions Criticality Noted Date Comments Adhesive Tape Medium 01/30/2022 Ibuprofen Hives 01/13/2012 Aspirin Hives,Rash 09/15/2000 Sulfamethoxazole-Trimeth oprim Nausea/vomiting,Othe r (Please comment) 10/27/2020 Dizziness Ciprofloxacin Hcl 06/16/2019 Hoarse, dizzy,disoriented Morphine 09/21/2021 Blacked out Penicillins Hives,Rash 09/15/2000 Prednisone 12/30/2017 Weakness/memory changes/blurred vision documented as of this encounter (statuses as of 05/12/2024) Medications Medication Sig Dispensed Refills Start Date End Date Status OneTouch Verio w/Device Kit Use up to 4 times a day E11.9 1 Kit 08/28/2020 Active Nystatin 680263 UNIT/GM External Powder (Nystop)Indications :Lydia rash of [...] Strip 1 05/30/2023 Active OneTouch Delica Plus [id number] s:Type 2 diabetes mellitus with hemoglobin A1c goal of less than 8.0% ([facility]) Test up to two times daily or as directed by [facility] pharmacist 200 Each 3 07/11/2023 Active [...] no improvement on day 3, contact [facility] for possible home visit 1 [...] XL)Indications:Non- ischemic cardiomyopathy (HCC),Coronary artery disease involving walker [place] coronary artery of walker river heart without angina pectoris,HTN, goal below 140/90 Take 1 Tablet by mouth every evening. 90 Tablet 1 05/12/2024 Active Mirabegron ER 25 MG Oral Tablet Extended Release 24 Hour (Myrbetriq) Take 1 Tablet by mouth in the morning. 90 Tablet 3 05/12/2024 Active GLUCOSAMINE CHONDR 500 COMPLEX PO CAPS Take by mouth 2 times a day. 05/12/20 24 Discontinu ed(Refill) MAGNESIUM OXIDE 400 MG PO TABS one pill each day 10/20/2014 05/12/20 24 Discontinu ed(Refill) Cyanocobalamin 1000 MCG Oral Tablet (Cyanocobalamin) Take 1 Tablet by mouth in the morning. 08/08/2021 05/12/20 24 Discontinu ed(Medicat ion/Dose Changed) Probiotic Acidophilus BioBeads Oral Capsule Take 1 Capsule by mouth every evening. Just with antibiotics 05/12/20 Discontinu ed(Refill) D-Mannose 500 MG Oral Capsule Take by mouth 2 times a day. 2 caps two times daily 05/12/20 24 Discontinu ed(Refill) Vitamin D-3 25 MCG (1000 UT) Oral Capsule Take 1 Capsule by mouth in the morning. 05/12/20 24 Discontinu ed(Refill) Myrbetriq 25 MG Oral Tablet Extended Release 24 Hour (Mirabegron ER) Take 1 Tablet by mouth in the morning. 90 Tablet 3 07/08/2023 05/12/20 24 Discontinu ed(Refill) Levothyroxine Sodium 88 MCG Oral Tablet (Levoxyl)Indication s:Hypothyroidism, unspecified type TAKE ONE TABLET BY MOUTH EVERY MORNING 30 MINS PRIOR TO FIRST MEAL OF THE DAY OR OTHER MEDS 90 Tablet 3 08/11/2023 05/12/20 24 Discontinu ed(Refill) Potassium Chloride Laura ER 20 MEQ Oral Tablet Extended Release Take 1 Tablet by mouth 2 times a day with morning and evening meals. 180 Tablet 1 11/21/2023 05/12/20 24 Discontinu ed(Refill) Meclizine HCl 25 MG Oral Tablet (Antivert)Indicatio ns:Vertigo Take 1 tablet by mouth 3 times a day as needed for dizziness 30 Tablet 5 11/28/2023 05/12/20 24 Discontinu ed(Refill) Ondansetron HCl 4 MG Oral Tablet Take 1 Tablet by mouth every 6 hours as needed for Nausea. 20 Tablet 12/03/2023 05/12/20 24 Discontinu ed(Refill) Trulicity 0.75 MG/0.5ML Subcutaneous Solution Pen-injector (Dulaglutide) Inject 0.75 mg under the skin once a week. 2 mL 3 01/31/2024 05/12/20 24 Discontinu ed(Refill) Omeprazole 20 MG Oral Capsule Delayed Release (PriLOSEC) Take 1 Capsule by mouth in the morning. One hour before the first meal of the day.. 90 Capsule 1 02/10/2024 05/12/20 24 Discontinu ed(Refill) Spironolactone 25 MG Oral Tablet (Aldactone)Indicati ons:Non-ischemic cardiomyopathy (HCC) TAKE 1/2 TABLET BY MOUTH EVERY MORNING 45 Tablet 3 03/03/2024 05/12/20 24 Discontinu ed(Refill) Metoprolol Succinate ER 25 MG Oral Tablet Extended Release 24 Hour (toPROL XL)Indications:Non- ischemic cardiomyopathy (HCC),Coronary artery disease involving walk[place] coronary artery of walker river heart without angina pectoris,HTN, goal below 140/90 TAKE ONE TABLET BY MOUTH in the evening 90 Tablet 1 04/08/2024 05/12/20 Discontinu ed(Refill) Diclofenac Sodium 1 % External Gel (Voltaren) Apply topically to affected area 3 times a day as needed for Pain, Mild. 50 g 3 04/15/2024 05/12/20 24 Discontinu ed(Refill) Torsemide 20 MG Oral Tablet (Demadex)Indication s:Heart failure, systolic, due to idiopathic cardiomyopathy (HCC) take THREE tablets BY MOUTH EVERY MORNING, TWO tablets IN afternoon - additional tablet IN afternoon ONLY if directed by healthcare provider FOR weight gain of THREE lbs OR more 180 Tablet 3 04/23/2024 05/12/20 24 Discontinu ed(Refill) Acetaminophen 325 MG Oral Tablet (Tylenol) Take 2 Tablets by mouth every 4 hours as needed for Fever >38C(100.5F), Pain, Severe, Pain, Moderate or Pain, Mild. 05/04/2024 05/12/20 Discontinu ed(Medicat ion List Clean Up) Stool Softener 100 MG Oral Tablet (Docusate Sodium) Take 3 Tablets by mouth in the morning and 3 Tablets before bedtime. 05/04/2024 05/12/20 Discontinu ed(Refill) Sennosides 8.6 MG Oral Tablet Take 2 Tablets by mouth in the morning. 05/06/2024 05/12/20 Discontinu ed(Refill) Polyethylene Glycol 3350 17 GM/SCOOP Oral Powder (MiraLax) Take 17 g by mouth in the morning. Dissolve one heaping tablespoon in 8 ounces of water or juice.. 05/06/2024 05/12/20 Discontinu ed(Refill) Vitamin B-12 500 MCG Oral Tablet (vitamin B-12) Take 1 Tablet by mouth in the morning. 05/12/2024 05/12/20 24 Discontinu ed(Refill) documented as of this encounter (statuses as of 05/12/2024) Active Problems Problem Noted Date Diagnosed Date [...] as of this encounter (statuses as of 05/12/2024) Resolved Problems Problem Noted Date Diagnosed Date [...] as of this encounter (statuses as of 05/12/2024) Immunizations Name Administration Dates Next Due COVID-19 mRNA, LNP-s, No Pre serve, 2-Dose Series ([employer]) 08/29/2021,10/23/2020,10/02/2020 COVID-19, MRNA-LNP, 23-24, P F, 30 MCG/0.3 mL, 12 YRS AND ABOVE, IM ([facility] [facility]) 08/04/2023 Covid-19, Mrna, Lnp-s, Pf, B ivalent, 30 Mcg, IM, 12 yrs and above ([employer] [facility]) 08/02/2022 Pneumococcal Conjugate Vacc, 13 Valent [...] EDT Scheduled Telephone [facility], [facility] [address] [place] [address] Baylee Sandhu, [address] [place] [address] 05/14/2024 7:00 AM EDT Laboratory Lab Mobile Phlebotomy [facility] [address] [facility] [place] [address] M[facility], Gml Mobile Home Draw [address] [facility] [place] [address] 05/18/2024 2:20 PM EDT Office Visit Family [address] [phone] Verónica Benavides MD [address] [place] [address] [place] [address] 05/24/2024 8:30 AM EDT Home Visit [facility]inger at [facility] [address] [facility] [place] [address] Destiny Schultz RN 132 [facility] [place] [address] 10/01/2024 1:00 PM EST Telemedicine Family Medicine [address] [phone] Kusum Jones CRNP [address] [place] [address] [place] [address] 10/13/2024 11:30 AM EST Telemedicine Urology, [facility] 132 [facility] [place] [address] Chandler Pena MD [address] [place] [address] 11/24/2024 1:40 PM EDT Office Visit Dermatology [address] [place] [address] Sheryl Pena PA-C [address] [place] [address] [place] [address] 04/18/2025 1:20 PM EDT Telemedicine Family Medicine [address] [place] [phone] Verónica Benavides MD [address] [place] [address] [place] [address] Scheduled Referrals Name Type Priority Associated Diagnoses Orde r Schedule HOME HEALTH REFERRAL OP Referral Within 10 days (routine) Heart failure, systolic, due to idiopathic cardiomyopathy (HCC) Ordered: 05/12/2024 Health Maintenance Due Date Last Done Comments [...] Additional history exists CKD PHOS USE SMARTSET 99486 05/05/202504/25, 04/30/2024, 04/02/2024, Additional history exists CKD HGB USE SMARTSET 80824 05/07/202505/07, 05/07/2024, 05/05/2024, Additional history exists Pneumococcal [...] cardiomyopathy (HCC)- Primary Unspecified systolic heart failure Vertigo Dizziness and giddiness Non-ischemic cardiomyopathy (HCC) Other primary cardiomyopathies Hypothyroidism, unspecified type Coronary artery disease involving walker river coronary artery of walker river heart without angina pectoris HTN, goal below 140/90 Unspecified essential hypertension documented in this encounter Advance Directives Documents on File Type Date Recorded 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
--- OUTSIDE RECORDS SUMMARY | 2024-06-10 12:51 | External Medical Summary | Summary of Care ---
Author Name Unknown Organization [facility] Address [address] [place] [address] Phone [phone] Care Team Providers Care Dry Room Attendant Name Role Phone Verónica Benavides MD Primary Care Provide r Reason for Visit * Reason Onset Date Comments Prison Visit - Discharge 05/13/2024 Encounter Details Date Type Department Care Team (Latest Contact Info) Description 05/13/2024 6:00 AM EDT Prison Visit [facility] [address] [place] [address] Suad Santos PA-C [address] [place] [address] Ambulatory dysfunction*; STEVE (acute kidney injury) ([facility]); Lymphedema; 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 ([facility]); Heart failure, systolic, due to idiopathic cardiomyopathy ([facility]); Coronary artery disease involving hamilton coronary artery of hamilton heart without angina pectoris; Type 2 diabetes mellitus with right eye affected by mild nonproliferative retinopathy without macular edema, without long-term current use of insulin ([facility]); Morbid obesity with BMI of 45.0-49.9, adult ([facility]); 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 Allergies Active Allergy Reactions Criticality Noted Date [...] day E11.9 1 Kit 08/28/2020 Active Nystatin 636665 UNIT/GM External Powder (Nystop)Indications: Lydia rash of [...] without long-term current use of insulin ([facility]),Type 2 diabetes mellitus with hemoglobin A1c goal of less than 8.0% ([facility]) TEST UP TO FOUR TIMES DAILY 400 Strip 1 05/30/2023 Active PloredTouch Delica Plus [id number] :Type 2 diabetes mellitus with hemoglobin A1c goal of less than 8.0% ([facility]) Test up to two times [...] If no improvement on day 3, contact [facility] for possible home visit 1 Each 11/28/2023 [...] XL)Indications:Non-i schemic cardiomyopathy (HCC),Coronary artery disease involving hamilton coronary artery of hamilton heart without angina pectoris,HTN, goal below 140/90 [...] 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 Last Assessment & Plan: [facility] Triage Call: Reviewed last C&S - treated [...] Continue synthroid Coronary artery disease invo lving hamilton coronary artery of hamilton heart without angina pectoris 07/03/2012 Overview: 60% [...] mRNA, LNP-s, No Pre serve, 2-Dose Series ([employer]) 08/29/2021,10/23/2020,10/02/2020 COVID-19, MRNA-LNP, 23-24, P F, 30 MCG/0.3 mL, 12 YRS AND ABOVE, IM ([employer]) 08/04/2023 Covid-19, Mrna, Lnp-s, Pf, B ivalent, 30 Mcg, IM, 12 yrs and above ([employer]) 08/02/2022 Pneumococcal Conjugate Vacc, 13 Valent (Prevnar) [...] EDT Scheduled Telephone [facility], [facility] [address] [place] [address] Baylee Sandhu, [address] [place] [address] 05/14/2024 7:00 AM EDT Laboratory Lab Mobile Phlebotomy [facility] [address] [place] [address] Mvmg, Gml Mobile Home Draw [address] [place] [place] [address] 05/21/2024 2:20 PM EDT Office Visit Family [address] [place] [phone] Verónica Benavides MD [address] [place] [address] [place] [address] 05/24/2024 8:30 AM EDT Home Visit [facility], [facility] 132 [facility] [place] [address] Destiny Schultz, POPPY 132 [facility] [place] [address] 10/01/2024 1:00 PM EST Telemedicine [address] [place] [phone] Kusum Jones CRNP [address] [place] [address] [place] [address] 10/13/2024 11:30 AM EST Telemedicine Urology, [facility] 132 [facility] [place] [address] Chandler Pena MD [address] [place] [address] 11/24/2024 1:40 PM EDT Office Visit Dermatology [address] [place] [address] Sheryl Pena PA-C [address] [place] [address] [place] [address] 04/18/2025 1:20 PM EDT Telemedicine [address] [place] [phone] Verónica Benavides MD [address] [place] [address] [place] [address] Health Maintenance Due Date Last Done Comments [...] Additional history exists CKD PHOS USE SMARTSET 55025 05/05/202504/25, 04/30/2024, 04/02/2024, Additional history exists CKD HGB USE SMARTSET 20323 05/07/202505/07, 05/07/2024, 05/05/2024, Additional history exists Pneumococcal [...] kidney injury) (HCC) Acute kidney failure, unspecified Lymphedema Other lymphedema 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) Heart failure, systolic, due to idiopathic cardiomyopathy (HCC) Unspecified systolic heart failure Coronary artery disease involving hamilton coronary artery of hamilton heart without angina pectoris Type 2 diabetes mellitus with right eye affected by mild nonproliferative retinopathy without macular edema, without long-term current use of insulin (HCC) Morbid obesity with BMI of 45.0-49.9, adult (HCC) Morbid obesity 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 documented in this encounter Advance Directives Documents on File Type Date Recorded 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
--- OUTSIDE RECORDS SUMMARY | 2024-06-10 12:51 | External Medical Summary | Summary of Care ---
Author Name Unknown Organization [facility] Address [address] [place] [address] Phone [phone] Care Team Providers Care Stretching Machine Operator Name Role Phone Verónica Benavides MD Primary Care Provide r Reason for Visit * Reason Onset Date Comments [facility]: Maintenance 05/13/2024 Encounter Details Date Type Department Care Team (Late st Contact Info) Description 05/13/2024 11:30 AM EDT Scheduled Telephone [facility], [facility] [address] [facility] [place] [address] Baylee Sandhu, [address] [place] [address] Allergies Active Allergy Reactions Criticality Noted Date [...] day E11.9 1 Kit 08/28/2020 Active Nystatin 500922 UNIT/GM External Powder (Nystop)Indications: Lydia rash of [...] long-term current use of insulin ([facility]),Type 2 diabetes mellitus with hemoglobin A1c goal of less than 8.0% ([facility]) TEST UP TO FOUR TIMES DAILY 400 Strip 1 05/30/2023 Active [employer] Delica Plus [id number] :Type 2 diabetes mellitus with hemoglobin A1c goal of less than 8.0% ([facility]) Test up to two times daily or as directed by [facility] pharmacist 200 Each 3 07/11/2023 Active [...] XL)Indications:Non-i schemic cardiomyopathy (HCC),Coronary artery disease involving [place] coronary artery of [place] heart without angina pectoris,HTN, goal below 140/90 [...] Continue synthroid Coronary artery disease invo lving [place] coronary artery of [place] heart without angina pectoris 07/03/2012 Overview: 60% [...] mRNA, LNP-s, No Pre serve, 2-Dose Series ([employer]) 08/29/2021,10/23/2020,10/02/2020 COVID-19, MRNA-LNP, 23-24, P F, 30 MCG/0.3 mL, 12 YRS AND ABOVE, IM ([employer]) 08/04/2023 Covid-19, Mrna, Lnp-s, Pf, B ivalent, 30 Mcg, IM, 12 yrs and above ([employer]) 08/02/2022 Pneumococcal Conjugate Vacc, 13 Valent (Prevnar) [...] 05/13/2024 10:42 AM EDT Call placed to [facility]. Confirmed that pt is still at facility. Transferred to [facility] requesting a call back Baylee Sandhu Manager Line [facility] [email or web address] documented in this encounter Plan of Treatment Upcoming Encounters Date Type Department Care Team (Late st Contact Info) Description 05/14/2024 7:00 AM EDT Laboratory Lab Mobile Phlebotomy [facility] [address] [place] [address] Mvmg, Gml Mobile Home Draw [address] [place] [address] 05/21/2024 2:20 PM EDT Office Visit [address] [phone] Verónica Benavides MD [address] [place] [address] [place] [address] 05/24/2024 8:30 AM EDT Home Visit [facility]inger at [facility] 132 [facility] [place] [address] Destiny Schultz, RN [facility] [place] [address] 10/01/2024 1:00 PM EST Telemedicine Family Medicine [address] [place] [phone] Kusum Jones CRNP [address] [place] [address] [place] [address] 10/13/2024 11:30 AM EST Telemedicine Urology, [facility] 132 [facility] [place] [address] Chandler Pena MD [address] [place] [address] 11/24/2024 1:40 PM EDT Office Visit Dermatology [address] [place] [address] Sheryl Pena PA-C [address] [place] [address] [place] [address] 04/18/2025 1:20 PM EDT Telemedicine Family Medicine [address] [place] [phone] Verónica Benavides MD [address] [place] [address] [place] [address] Health Maintenance Due Date Last Done Comments [...] Additional history exists CKD PHOS USE SMARTSET 81665 05/05/202504/25, 04/30/2024, 04/02/2024, Additional history exists CKD HGB USE SMARTSET 96845 05/07/202505/07, 05/07/2024, 05/05/2024, Additional history exists Pneumococcal [...] Documents on File Type Date Recorded 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
--- OUTSIDE RECORDS SUMMARY | 2024-06-10 12:51 | External Medical Summary | Summary of Care ---
Author Name Unknown Organization [facility] Address [address] [place] [address] Phone [phone] Care Team Providers Care Salon Sales Consultant Name Role Phone Verónica Benavides MD Primary Care Provide r Reason for Visit * Reason Onset Date Comments Hospital Follow-Up Hospital Follow-Up 05/21/2024 Encounter Details Date Type Department Care Team (Latest Contact Info) Description 05/21/2024 2:20 PM EDT Telemedicine Family Medicine [address] [id number] Verónica Benavides MD [address] [place], [place] [address] [id number] Hospital discharge follow-up*; Anemia, unspecified type; History of recurrent UTI (urinary tract infection); Heart failure, systolic, due to idiopathic cardiomyopathy ([facility]); 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 Allergies Active Allergy Reactions Criticality Noted Date Comments Adhesive Tape Medium 01/30/2022 Ibuprofen Hives 01/13/2012 Aspirin Hives,Rash 09/15/2000 Sulfamethoxazole-Trimeth oprim Nausea/vomiting,Othe r (Please comment) 10/27/2020 Dizziness Ciprofloxacin Hcl 06/16/2019 Hoarse, dizzy,disoriented Morphine 09/21/2021 Blacked out Penicillins Hives,Rash 09/15/2000 Prednisone 12/30/2017 Weakness/memory changes/blurred vision documented as of this encounter (statuses as of 05/21/2024) Medications Medication Sig Dispensed Refills Start Date End Date Status NetcontinuumTouch Verio w/Device Kit Use up to 4 times a day E11.9 1 Kit 1 Active Bisacodyl 5 MG Oral Tablet Delayed Release Take 2 Tablets by mouth daily as needed for Constipation. Do not use for more than one week. Do not cut, crush or chew 40 Tablet 1 3 Active NetcontinuumToNaldo Verio In Vitro Strip (Glucose Blood)Indications:T ype 2 diabetes mellitus with stage 3 chronic kidney disease, without long-term current use of insulin ([facility]),Type 2 diabetes mellitus with hemoglobin A1c goal of less than 8.0% ([facility]) TEST UP TO FOUR TIMES DAILY 400 Strip 1 3 Active SeeControl Delica Plus [id number] s:Type 2 diabetes mellitus with hemoglobin A1c goal of less than 8.0% ([facility]) Test up to two times daily or as directed by [facility] pharmacist 200 Each 3 3 Active Estrogens Conjugated 0.625 MG/GM Vaginal Cream (Premarin) Administer 0.5 g into the vagina every night at bedtime. Pea-sized amount around vulvar area nightly 30 g 5 3 Active Clotrimazole 1 % External Cream (Lotrimin)Indicatio ns:Candidal intertrigo APPLY TO THE AFFECTED AREA(S) TWICE DAILY FOR FOURTEEN DAYS 60 g 2 4 Active DIURETIC TITRATION PLAN If no improvement on day 3, contact [facility] for possible home visit 1 Each 4 Active Phenazopyridine HCl 200 MG Oral Tablet (Pyridium) Take 1 Tablet by mouth 3 times a day as needed for Pain, Severe. After meals for pain with urination 6 Tablet 4 Active D-Mannose 500 MG Oral Capsule Take 2 Tablets by mouth in the morning and 2 Tablets before bedtime. 2 caps two times daily. 120 Capsule 4 Active Glucosamine Chondr 500 Complex Oral Capsule Take 1 Capsule by mouth in the morning and 1 Capsule before bedtime. 60 Capsule 4 Active Magnesium Oxide 400 MG Oral Tablet Take 1 Tablet by mouth in the morning. 30 Tablet 4 Active Polyethylene Glycol 3350 17 GM/SCOOP Oral Powder (MiraLax) Take 17 g by mouth in the morning. Dissolve one heaping tablespoon in 8 ounces of water or juice.. 255 g 4 Active Probiotic Acidophilus BioBeads Oral Capsule Take 1 Capsule by mouth every evening. Just with antibiotics 30 Capsule 4 Active Sennosides 8.6 MG Oral Tablet Take 2 Tablets by mouth in the morning. 60 Tablet 4 Active Stool Softener 100 MG Oral Tablet (Docusate Sodium) Take 3 Tablets by mouth in the morning and 3 Tablets before bedtime. 120 Tablet 4 Active Vitamin B-12 500 MCG Oral Tablet (vitamin B-12) Take 1 Tablet by mouth in the morning. 30 Tablet 4 Active Vitamin D-3 25 MCG (1000 UT) Oral Capsule Take 1 Capsule by mouth in the morning. 30 Capsule 4 Active Potassium Chloride Laura ER 20 MEQ Oral Tablet Extended Release Take 1 Tablet by mouth 2 times a day with morning and evening meals. 180 Tablet 1 4 Active Trulicity 0.75 MG/0.5ML Subcutaneous Solution Pen-injector (Dulaglutide) Inject 0.75 mg under the skin once a week. 0.5 mL 4 Active Ondansetron HCl 4 MG Oral Tablet Take 1 Tablet by mouth every 6 hours as needed for Nausea. 20 Tablet 4 Active Meclizine HCl 25 MG Oral Tablet (Antivert)Indicatio ns:Vertigo Take 1 tablet by mouth 3 times a day as needed for dizziness 30 Tablet 5 4 Active Spironolactone 25 MG Oral Tablet (Aldactone)Indicati ons:Non-ischemic cardiomyopathy (HCC) Take 0.5 Tablets by mouth in the morning. 45 Tablet 3 4 Active Diclofenac Sodium 1 % External Gel (Voltaren) Apply topically to affected area 3 times a day as needed for Pain, Mild. 50 g 3 4 Active Omeprazole 20 MG Oral Capsule Delayed Release (PriLOSEC) Take 1 Capsule by mouth in the morning. One hour before the first meal of the day.. 90 Capsule 1 4 Active Levothyroxine Sodium 88 MCG Oral Tablet (Levoxyl)Indication s:Hypothyroidism, unspecified type Take 1 Tablet by mouth daily first thing in the morning. (at least 30 min prior to breakfast or other meds) 90 Tablet 3 4 Active Metoprolol Succinate ER 25 MG Oral Tablet Extended Release 24 Hour (toPROL XL)Indications:Non- ischemic cardiomyopathy (HCC),Coronary artery disease involving north fork coronary artery of north fork heart without angina pectoris,HTN, goal below 140/90 Take 1 Tablet by mouth every evening. 90 Tablet 1 4 Active Mirabegron ER 25 MG Oral Tablet Extended Release 24 Hour (Myrbetriq) Take 1 Tablet by mouth in the morning. 90 Tablet 3 4 Active Colchicine 0.6 MG Oral Tablet Take 1 Tablet by mouth 2 times a day as needed (GOUT). Active Promethazine-DM 6.25-15 MG/5ML Oral Syrup Take by mouth 4 times a day as needed for Cough. Active Nitrofurantoin Monohyd Macro 100 MG Oral Capsule (Macrobid) Take 1 Capsule by mouth every night at bedtime. 4 Active Torsemide 20 MG Oral Tablet (Demadex)Indication s:Heart failure, systolic, due to idiopathic cardiomyopathy (HCC) Take 3 Tablets by mouth in the morning and 3 Tablets in the evening. 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 05/05/2024 Anemia 05/05/2024 Full code status 05/03/2024 Recurrent UTI (urinary tract infection) 04/24/20 24 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/26/2023 Transient confusion [...] Continue synthroid Coronary artery disease invo lving north fork coronary artery of north fork heart without angina pectoris 07/03/2012 Overview: 60% [...] as of this encounter (statuses as of 05/21/2024) Resolved Problems Problem Noted Date Diagnosed Date [...] as of this encounter (statuses as of 05/21/2024) Immunizations Name Administration Dates Next Due COVID-19 mRNA, LNP-s, No Pre serve, 2-Dose Series ([employer]) 08/29/2021,10/23/2020,10/02/2020 COVID-19, MRNA-LNP, 23-24, P F, 30 MCG/0.3 mL, 12 YRS AND ABOVE, IM ([employer]) 08/04/2023 Covid-19, Mrna, Lnp-s, Pf, B ivalent, 30 Mcg, IM, 12 yrs and above ([employer]) 08/02/2022 Pneumococcal Conjugate Vacc, 13 Valent (Prevnar) [...] on file documented as of this encounter Patient Instructions * Patient Instructions* Verónica Benavides MD - 05/21/2024 2:25 PM EDT Taking Medicine Safely Medicine is given to help treat or prevent illness. But if you don't take it correctly, it might not help. It might even harm you. Your doctor or pharmacist can help you learn the right way to take your medicine. Listed below are some tips to help you take medicine safely. Safety Tips Have a routine for taking each medicine. Make it part of something you do each day, such as brushing your teeth or eating a meal. When you go to the hospital or your doctor's office, bring all your current medicines in their original boxes or bottles. If you can't do that, bring an up-to-date list of your medicines. Do not stop taking a prescription medicine unless your doctor tells you to. Doing so could make your condition worse. Do not share medicines. Let your doctor and pharmacist know of any allergies you have. Taking prescription medicines with alcohol, street drugs, herbs, supplements, or even some nfew-doj-dvekdan medicines can be harmful. Talk to your doctor or pharmacist before using any of these things while taking a prescription medicine. When filling your prescriptions, try using the same pharmacy for all your medicines. If not, let the pharmacist know what medicines you are already on. Keep medicines out of the reach of children and pets. Do not use medicine that has or that doesn't look or smell right. Get rid of it properly. To find out the right way to get rid of medicine: Call your [facility] or [facility]'s household trash and recycling service and ask if a drug take-back program is available in your community. Call your local pharmacy and ask the right way to get rid of the medicine. Go to http://www.fda.gov/ForConsumers/ConsumerUpdates/owc079782 to learn how to get rid of medicines safely. Using Generic Medicines Medicines have brand names and generic (chemical) names. When a medicine is first made, it is sold only under its brand name. Later, it can be made and sold as a generic. Generic medicines cost less than brand-name medicines and most work just as well. Most people can use the generic medicine instead of the brand-name medicine, unless their doctor says otherwise. [id number] [employer] [facility], [address] [place] [address], [place] [address]. All rights reserved. This information is not intended as a substitute for professional medical care. Always follow your healthcare professional's instructions. Coping with Your Diagnosis of a Chronic Health Condition If you have a chronic health condition, you have a problem that may not go away over time. Heart disease, asthma, arthritis, and diabetes are just a few of the chronic conditions that exist. Right now, these conditions have no known cure. But you can take an active role in managing your health. Coping with Your Diagnosis If you've just learned about your health condition, you may be angry, depressed, or afraid. Or you might feel relieved just to know what's wrong. Even if you've known about your health problem for a while, adjusting to it can be hard. But learning about your condition can help you cope. Look for books at your local library. If you have access to a computer, check the Internet. Or contact a group that focuses on your specific problem. Accepting Change Change is hard for most people. Yet right now you may be facing many changes. What you eat or the way you work may change. Your moods, and even your symptoms, might vary from day to day. Although it isn't easy, learning to accept change can help you feel more in control. Taking Control Feeling you have control can make living with your condition easier. Discuss treatment options withyour health care provider. The more you know, the more active you can be in your care. Moving Forward You may wonder whether you will be able to do the things you've always done. That depends on your age, the condition you have, and your goals. To make the most of each day, try to build caring relationships, be active, and eat right. Also, do your best to keep a sense of humor. 4511-5383 [facility], [address] [place] [address], [place] [address]. All rights reserved. This information is not intended as a substitute for professional medical care. Always follow your healthcare professional's instructions. Taking an Active Role in Your Medicines Take the time to learn about your medicine. For instance, why are you taking it? What does it do? Work with your doctor or other health care providers to get the answers you need. Talk to your pharmacist about how to take each medicine, and ask for a fact sheet on each one. Ask Questions About Your Medicine What is the name of the medicine? Why do I need to take it? When should I take it? How should I take it: with water? with food? on an empty stomach? How much do I take? What do I do if I miss a dose? What side effects could it cause and which ones should I call the doctor about? Are there any foods or medicines I should avoid while taking this medicine? Keeping track of your medications? Name of medicine: Taken for: Dose: Time(s) to take it: Take an Active Role Fill all your prescriptions at the same pharmacy. This keeps your medicine history in one place. Talk to the pharmacist. Make sure you understand how to take each medicine. Ask for a fact sheet about each one. Tell your doctor and pharmacist about all the prescription and ldym-koo-ytmpkzh medicines you take.This includes vitamins and herbal remedies. Tell your doctor and pharmacist if you have any medical conditions or allergies to any medicine or food, or if you are or . Keep a list of all your medicines. Use the sample to the right as a guide for the type of information needed. 9930-8874 Ey[employer] [facility], [address] [place] [address], [place] [address]. All rights reserved. This information is not intended as a substitute for professional medical care. Always follow your healthcare professional's instructions. documented in this encounter Progress Notes * Verónica Benavides MD - 05/21/2024 2:24 PM EDT SUBJECTIVE: Regla Castano is a 88 year old female. Chief Complaint Patient presents with Hospital Follow-Up Hospital Follow-Up Recent Admission: Patient was recently admitted to [facility] 04/24/24 and then to [facility] 04/28/24. The date of discharge was 05/15/2024. Discharge report received and reviewed. HPI: Brief Clinical History Ms. Castano is a 88 year old female last seen in [facility] on 05/17/2024 by Destiny Byers She has a h/o the following chronic conditions indicated on the problem list: Chronic Conditions First degree atrioventricular block Full code status Heart failure, systolic, due to idiopathic cardiomyopathy (HCC) Type 2 diabetes mellitus with hemoglobin A1c goal of less than 8.0% ([facility]) Patient location: HOME. I was in a hospital or clinic location. After connecting through televideo,patient was verified with two unique identifiers. Patient (or authorized legal screening representative) was then informed that this was a Telemedicine visit and being conducted confidentially over secure lines. Methods to assure confidentiality were taken. Patient acknowledged consent and understanding of pr ivacy and security of the Telemedicine visit. The patient agreed to participate. Daughter is sitting with patient. Admitted to [facility] on 04/24/24 and then to [facility] on 04/28/24 for rehab. From Admission H&P to [facility]: "Patient with PMH of recurrent UTIs, often with ESBL E Coli followed by urology, hypertension, chronic systolic CHF and type 2 diabetes mellitus with stage 3a CKD, lymphedema, morbid obesity, current treatment for SCC of right cheek, CAD, severe aortic stenosis, hypothyroidism, generalized osteoarthritis, dyslipidemia, GERD, and ventral hernia who presented to the ED after a fall at home. Patient states that her knees "gave out" and she fell landing on her knees but the hospital records note that she slid out of bed to the floor and landed on her right hip. She continued to have right hip and knee pain. Family and care aides were not able to get her up and EMS was called. Patient was under treatment for Proteus UTI with Cefdinir, which was started the day before the fall. In the ED, CBC showed WBC of 11.14, hemoglobin of 10.0, and platelets of 360. Creatinine was 1.09, which is close to baseline. Her glucose was elevated at 199. Hip and pelvis x-ray was negative for fractures. Left knee x-ray showed an intact total left knee arthroplasty and small joint effusion. CXR showed stable cardiomegaly with no acute findings. CT of the pelvis was also negative for fractures. She was admitted and seen by orthopedics, who felt there was no knee hardware complication and recommended weightbearing as tolerated. She was continued on her cefdinir to complete course as ordered outpatient, with last dose being today." While at [facility], her recently discovered anemia was further worked up and her iron, TSH, B12, and folic levels were normal. Patient completed therapy and was discharged to home with daughter on 05/15/24. Her weight was up about 6 pounds by 05/17/24. [facility] ordered metolazone on 05/17/24 and now her weight is back to her baseline. Daughter states her torsemide had been increased to 60 mg twice daily at some point and she had needed less metolazone since then. She had not been receiving her suppression dose of Macrobid while at [facility] due to being treated for acute UTI. Her urine was getting cloudy by the time she got home and the Macrobid was restarted by her daughter and it has cleared up some. Not having the burning right now. Macrobid was recommended by urology. Does not use the Nystatin powder anymore because it cakes on. The clotrimazole cream works much better. Results for orders placed or performed in [...] mg/dL CALCIUM 8.9 8.4 - 10.2 mg/dL FERRITIN Result Value Ref Range Ferritin 407 (H) 13 - 150 ng/mL FOLIC ACID Result Value Ref Range Folic Acid 14.4 >4.5 ng/mL IRON SCREEN, INCLUDING TIBC Result Value Ref Range Iron 77 33 - 151 ug/dL Iron Binding Capacity 245 (L) 250 - 425 ug/dL Transferrin Saturation Percent 31 15 - 55 % VITAMIN B12 Result Value Ref Range Vitamin B12 >2,000 (H) 232 - 1,245 pg/mL CBC Result Value Ref Range WBC 9.52 [...] K/uL MPV 9.9 6.6 - 11.1 fL DIFFERENTIAL, AUTOMATED Result Value Ref Range WBC 9.52 4.00 - 10.80 K/uL Neutrophils % 59.9 40.0 - 75.0 % Lymphocytes % 26.1 18.0 - 42.0 % Monocytes % 13.1 (H) 1.0 - 11.0 % Eosinophils % 0.6 0.0 - 6.0 % Basophils % 0.3 0.0 - 2.0 % Absolute Neutrophils 5.70 1.80 - 7.70 K/uL Absolute Lymphocytes 2.48 1.00 - 4.80 K/ul Absolute Monocytes 1.25 (H) 0.00 - 1.10 K/uL Absolute Eosinophils 0.06 0.00 - 0.70 K/uL Absolute Basophils 0.03 0.00 - 0.20 K/uL *Note: Due to a large number of results and/or encounters for the requested time period, some results have not been displayed. A complete set of results can be found in Results Review. Patient Active Problem List Diagnosis GENERAL OSTEOARTHROSIS Hypothyroidism DYSLIPIDEMIA, GOAL LDL BELOW 100 Aspirin allergy LBBB (left bundle branch block) First degree atrioventricular block Coronary artery disease involving north fork coronary artery of north fork heart without angina pectoris ACEI/ARB contraindicated Type 2 diabetes mellitus with hemoglobin A1c goal of less than 8.0% ([facility]) Non-ischemic cardiomyopathy ([facility]) Heart failure, systolic, due to idiopathic cardiomyopathy ([facility]) Aortic valve stenosis Biventricular cardiac pacemaker 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 Torsemide 20 MG Oral Tablet (Demadex) Take 3 Tablets by mouth in the morning and 3 Tablets in the evening. [employer] w/Device Kit Use up to 4 times a day E11.9 1 Kit 0 Bisacodyl 5 MG Oral Tablet Delayed Release Take 2 Tablets by mouth daily as needed for Constipation. Do not use for more than one week. Do not cut, crush or chew 40 Tablet 1 OneTouch Verio In Vitro Strip (Glucose Blood) TEST UP TO FOUR TIMES DAILY 400 Strip 1 OneTouch Delica Plus [id number] Test up to two times daily or as directed by [facility] pharmacist 200 Each 3 Estrogens Conjugated 0.625 MG/GM Vaginal Cream (Premarin) Administer 0.5 g into the vagina every night at bedtime. Pea-sized amount around vulvar area nightly 30 g 5 Clotrimazole 1 % External Cream (Lotrimin) APPLY TO THE AFFECTED AREA(S) TWICE DAILY FOR FOURTEEN DAYS 60 g 2 DIURETIC TITRATION PLAN If no improvement on day 3, contact [facility] for possible home visit 1 Each 0 Phenazopyridine HCl 200 MG Oral Tablet (Pyridium) Take 1 Tablet by mouth 3 times a day as needed for Pain, Severe. After meals for pain with urination 6 Tablet 0 D-Mannose 500 MG Oral Capsule Take 2 Tablets by mouth in the morning and 2 Tablets before bedtime. 2 caps two times daily. 120 Capsule 0 Glucosamine Chondr 500 Complex Oral Capsule Take 1 Capsule by mouth in the morning and 1 Capsule before bedtime. 60 Capsule 0 Magnesium Oxide 400 MG Oral Tablet Take 1 Tablet by mouth in the morning. 30 Tablet 0 Polyethylene Glycol 3350 17 GM/SCOOP Oral Powder (MiraLax) Take 17 g by mouth in the morning. Dissolve one heaping tablespoon in 8 ounces of water or juice.. 255 g 0 Probiotic Acidophilus BioBeads Oral Capsule Take 1 Capsule by mouth every evening. Just with antibiotics 30 Capsule 0 Sennosides 8.6 MG Oral Tablet Take 2 Tablets by mouth in the morning. 60 Tablet 0 Stool Softener 100 MG Oral Tablet (Docusate Sodium) Take 3 Tablets by mouth in the morning and 3 Tablets before bedtime. 120 Tablet 0 Vitamin B-12 500 MCG Oral Tablet (vitamin B-12) Take 1 Tablet by mouth in the morning. 30 Tablet 0 Vitamin D-3 25 MCG (1000 UT) Oral Capsule Take 1 Capsule by mouth in the morning. 30 Capsule 0 Potassium Chloride Laura ER 20 MEQ Oral Tablet Extended Release Take 1 Tablet by mouth 2 times a daywith morning and evening meals. 180 Tablet 1 Trulicity 0.75 MG/0.5ML Subcutaneous Solution Pen-injector (Dulaglutide) Inject 0.75 mg under the skin once a week. 0.5 mL 0 Ondansetron HCl 4 MG Oral Tablet Take 1 Tablet by mouth every 6 hours as needed for Nausea. 20 Tablet 0 Meclizine HCl 25 MG Oral Tablet (Antivert) Take 1 tablet by mouth 3 times a day as needed for dizziness 30 Tablet 5 Spironolactone 25 MG Oral Tablet (Aldactone) Take 0.5 Tablets by mouth in the morning. 45 Tablet 3 Diclofenac Sodium 1 % External Gel (Voltaren) Apply topically to affected area 3 times a day as needed for Pain, Mild. 50 g 3 Omeprazole 20 MG Oral Capsule Delayed Release (PriLOSEC) Take 1 Capsule by mouth in the morning. One hour before the first meal of the day.. 90 Capsule 1 Levothyroxine Sodium 88 MCG Oral Tablet (Levoxyl) Take 1 Tablet by mouth daily first thing in the morning. (at least 30 min prior to breakfast or other meds) 90 Tablet 3 Metoprolol Succinate ER 25 MG Oral Tablet Extended Release 24 Hour (toPROL XL) Take 1 Tablet by mouth every evening. 90 Tablet 1 Mirabegron ER 25 MG Oral Tablet Extended Release 24 Hour (Myrbetriq) Take 1 Tablet by mouth in the morning. 90 Tablet 3 Colchicine 0.6 MG Oral Tablet Take 1 Tablet by mouth 2 times a day as needed (GOUT). Promethazine-DM 6.25-15 MG/5ML Oral Syrup Take by mouth 4 times a day as needed for Cough. No current facility-administered medications for this visit. Current and discharge medications have been reconciled. Review of patient's allergies indicates: Allergen Reactions Adhesive Tape Advil [Ibuprofen] Hives Aspirin Hives and Rash Bactrim [Sulfamethoxazole-Trimethoprim] Nausea/vomiting and Other (Please comment) Dizziness Ciprofloxacin Hcl Hoarse, dizzy,disoriented Morphine Blacked out Penicillins Hives and Rash Prednisone Weakness/memory changes/blurred vision Hemoglobin Results: Lab Results Component Value Date/Time HGB 8.6 (L) 05/07/2024 05:35 AM HGB 9.0 (L) 05/05/2024 05:38 AM HGB 8.9 (L) 04/30/2024 05:31 AM HGB 12.5 08/04/2020 12:02 PM HGB 11.2 (L) 07/14/2020 12:47 PM HGB 11.6 (L) 07/07/2020 11:05 AM CBC Results: Results for orders placed or [...] K/uL MPV 9.9 6.6 - 11.1 fL Lab Results Component Value Date/Time TSH - [facility] 6.01 (H) 04/02/2024 09:53 AM TSH - [facility] 4.22 (H) 03/25/2023 06:08 AM TSH - [facility] 3.46 02/24/2023 02:00 PM TSH - [facility] 6.83 (H) 07/14/2020 12:47 PM TSH - [facility] 4.11 11/09/2019 03:52 PM TSH - [facility] 4.90 (H) 09/01/2018 03:55 PM TSH - [facility] 3.030 05/31/2018 12:00 AM Basic Panel Results: Results for orders [...] mg/dL CALCIUM 8.9 8.4 - 10.2 mg/dL Hemoglobin AIC Results: Lab Results Component Value Date/Time HEMOGLOBIN A1C - [facility] 7.3 (H) 04/02/2024 09:53 AM HEMOGLOBIN A1C - [facility] 9.6 (H) 02/11/2023 01:40 PM HEMOGLOBIN A1C - [facility] 7.6 (H) 11/01/2022 06:18 AM HEMOGLOBIN A1C - [facility] 6.4 (H) 06/06/2020 11:14 AM HEMOGLOBIN A1C - [facility] 6.5 (H) 11/09/2019 03:52 PM HEMOGLOBIN A1C - [facility] 6.2 (H) 07/09/2019 03:08 PM OBJECTIVE: There were no vitals taken for this visit. Review Of Systems: Skin: + SCC of right cheek s/p Efudex Eyes: negative Ears/Nose/Throat: pt denies:, deafness, tinnitus, vertigo, frequent URI's, sinus trouble Respiratory: pt denies:, cough, sputum, and pneumonia or bronchitis Cardiovascular: pt denies:, palpitations, tachycardia, chest pain, exertional chest pain or pressure, paroxysmal nocturnal dyspnea, and +CHF and chronic lower extremity edema Gastrointestinal: pt. denies:, abdominal pain, bloating or excess gas, dysphagia, nausea, heartburn, blood in stool or black stools, constipation or change in bowel habits, diarrhea Genitourinary: +recurrent UTIs and ESBL carrier Musculoskeletal: +OA Neurologic: pt denies:, headaches, syncope, and seizures Psychiatric: pt denies:, sleep disturbance, anxiety, nervousness, and depression Hematologic/Lymphatic/Immunologic: +anemia Endocrine: + diabetes and hypothyroidism PHYSICAL EXAM: General: alert, healthy, no distress, well nourished, well developed, and obese Neuro Exam: alert & oriented x 3 with fluent speech ASSESSMENT: Hospital discharge follow-up (Primary) - DISCH MED RECON CUR MED LIS Anemia, unspecified type--recent worsening of anemia and now in the mid-8 range. Iron levels, B12, and folic acid normal. Likely due to CKD. Has marked difficulty leaving the house due to age and debility. Will check follow-up labs recommended by hematology and consider referral pending results andif family/patient agree. Would likely benefit from Procrit. - CBC WITH WBC DIFFERENTIAL; Future; Expected date: 05/21/2024 - BASIC METABOLIC PANEL; Future; Expected date: 05/21/2024 - ERYTHROPOIETIN (EPO); Future; Expected date: 05/21/2024 - RETICULOCYTE PANEL; Future; Expected date: 05/21/2024 History of recurrent UTI (urinary tract infection)--continue Macrobid daily and urology follow-up. Heart failure, systolic, due to idiopathic cardiomyopathy (HCC)--continue torsemide 60 mg twice daily. Weight down to baseline after dose of metolazone. 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 Type 2 diabetes mellitus with stage 3b chronic kidney disease, without long-term current use of insulin ([facility])--controlled Morbid obesity with BMI of 45.0-49.9, adult ([facility])--monitor weight for CHF. ESBL E. 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 PLAN: Continue present medication(s): Change doses of medications: Increase torsemide to 60 mg twice daily. Begin medications: Restart Macrobid daily. Schedule labs: CBC w/diff, erythropoietin level, BMP, and reticulocyte count per mobile lab. Patient education: Discussed anemia and hematology referral. Daughter notes great difficulty in getting her to appointments and would only want to see hematology if something could be done for her anemia. Ask-A-Doc sent and response was to check EPO level and reticulocyte count. Would need to see he matology to start Procrit injections and may not be covered in the home. Will check the labs and pending may need hematology referral. Follow up as scheduled. I spent a total of 40-54 minutes (exact time 48 mins) minutes on the date of service in preparation, delivery, and documentation of the care provided to Regla Castano excluding any time spent in performance of separately billed services. Verónica Benavides MD documented in this encounter Plan of Treatment Upcoming Encounters Date Type Department Care Team (Late st Contact Info) Description 06/11/2024 4:00 PM EDT Home Visit [facility] [address] [place] [address] Destiny Schultz, POPPY [address] [place] [address] 10/01/2024 1:00 PM [facility] Family [address] [phone] Kusum Jones CRNP [address] [place] [address] [place] [address] 10/13/2024 11:30 AM EST Telemedicine Urology, [facility] [address] [place] [place] [address] Chandler Pena MD [address] [place] [address] 11/24/2024 1:40 PM EDT Office Visit Dermatology [address] [place] [address] Sheryl Pena PA-C [address] [place] [address] [place] [address] 04/18/2025 1:20 PM EDT Telemedicine Family Medicine [address] [phone] Verónica Benavides MD [address] [place] [address] [place] [address] Scheduled Orders Name Type Priority Associated Diagnoses Orde r Schedule CBC WITH WBC DIFFERENTIAL Lab Routine Anemia, unspecified type Expected: 05/21/2024 (Approximate), Expires: 05/21/2025 BASIC METABOLIC PANEL Lab Routine Anemia, unspecified type Expected: 05/21/2024 (Approximate), Expires: 05/21/2025 ERYTHROPOIETIN (EPO) Lab Routine Anemia, unspecified type Expected: 05/21/2024 (Approximate), Expires: 05/21/2025 RETICULOCYTE PANEL Lab Routine Anemia, unspecified type Expected: 05/21/2024 (Approximate), Expires: 05/21/2025 Health Maintenance Due Date Last Done Comments [...] Additional history exists CKD PHOS USE SMARTSET 07058 05/05/202504/25, 04/30/2024, 04/02/2024, Additional history exists CKD HGB USE SMARTSET 43669 05/07/202505/07, 05/07/2024, 05/05/2024, Additional history exists Pneumococcal [...] Hospital discharge follow-up- Primary Other follow-up examination Anemia, unspecified type History of recurrent UTI (urinary tract infection) Personal history of urinary (tract) infection Heart failure, systolic, due to idiopathic cardiomyopathy (HCC) Unspecified systolic heart failure 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 Carrier or suspected carrier of other specified bacterial diseases documented in this encounter Advance Directives Documents on File Type Date Recorded Patient Aviation Operations Specialist Expl anation Advance Directives and Living Will 08/10/2021 ADVANCE DIRECTIVE / LIVING WILL LIVING WILL Healthcare Agents on File Name Relationship Healthcare Agent [facility] Communication Josselyn Judd Adult Child Health Care Power of Attor nathalie Care Teams Salon Sales Consultant Relationship Specialty Start Date End Date Verónica Benavides MD [address] [place] [address] [place] [address] PCP - General Family Medicine 09/16/14 documented as of this encounter
--- OUTSIDE RECORDS SUMMARY | 2024-06-10 12:51 | External Medical Summary | Continuity Of Care Document ---
Author Name Unknown Address [address] [place] [address] Organization [facility] ( ) Care Team Providers Care Glove Machine Operator Name Role Phone Verónica Benavides Primary Care Provider [phone] Allergies Allergy Reaction Start Date End Date Status ASPIRIN Hives Active IBUPROFEN Hives, Rash Active PENICILLINS Hives, Rash Active MORPHINE Active ADHESIVE Active CIPROFLOXACIN Disorientation, Dizziness 000 Active SULFAMETHOXAZOLE Dizziness, Nausea, Vomiting Active TRIMETHOPRIM Dizziness, Nausea, Vomiting Active PREDNISONE Disorientation, Weakness Active Problems Code Description Start Date End Date Status M62.81 Muscle weakness (generalized) 04/28/2024 Active M25.569 Pain in unspecified knee 04/28/2024 Active M25.559 Pain in unspecified hip 04/28/2024 A ctive E11.9 Type 2 diabetes mellitus without complications 04/28/2024 Active N39.0 Urinary tract infection, site not specified 11/2023 Active B96.4 Proteus (mirabilis) (morganii) as the cause of diseases classified elsewhere 04/28/2024 Active I50.40 Unspecified combined systolic (congestive) and diastolic (congestive) heart failure 04/28/2024 Act shawn E03.9 Hypothyroidism, unspecified 04/28/2024 00 Active N18.30 Chronic kidney disease, stage 3 unspecified 11/2023 Active I10. Essential (primary) hypertension 04/28/2024 Active E78.5 Hyperlipidemia, unspecified 04/28/2024 00 Active I89.0 Lymphedema, not elsewhere classified 04/28/2024 Active I25.5 Ischemic cardiomyopathy 04/28/2024 A ctive I35.0 Nonrheumatic aortic (valve) stenosis 04/28/2024 Active Z95.0 Presence of cardiac pacemaker 04/28/2024 Active R26.89 Other abnormalities of gait and mobility 2023 Active M16.12 Unilateral primary osteoarthritis, left hip 11/2023 Active VITAL SIGNS Date Time Diastolic blood pressure Systolic blood pressure Body height Body weight Temperature SpO2 Blood Sugar Pulse Respirations 58851 904 05080 0 68.00 mm[Hg] - Sitting 116.00 mm[Hg] - Sitting 66 NI 235.00 NI 98.20 Ear 92.00 % 85.00/ min 18.00/min 40904 904 43173 7 66 NI 19445 904 90216 9 235.00 NI 21843 905 24087 5 87447 905 53618 2 92714 905 45091 3 59.00 mm[Hg] - Sitting 121.00 mm[Hg] - Sitting 98.40 Oral 92.00 % 74.00/ min 20.00/min 16651 906 84337 2 59.00 mm[Hg] - Sitting 121.00 mm[Hg] - Sitting 98.40 Ear 74.00/ min 20.00/min 72134 906 01982 8 32082 907 64002 0 58.00 mm[Hg] - Sitting 106.00 mm[Hg] - Sitting 97.90 Ear 92.00 % 66.00/ min 18.00/min 67730 910 87453 0 74.00 mm[Hg] - Sitting 114.00 mm[Hg] - Sitting 97.60 Ear 94.00 % 65.00/ min 18.00/min 12151 911 17748 1 98.20 Ear 12768 911 20000 6 97.50 Ear 14601 911 23312 9 55.00 mm[Hg] - Sitting 94.00 mm[Hg] - Sitting 98.30 Ear 94.00 % 69.00/ min 18.00/min 75142 911 46286 7 97.40 Ear 91475 912 63866 3 98.20 Ear 47846 912 92760 8 75.00 mm[Hg] - Sitting 117.00 mm[Hg] - Sitting 98.90 Ear 97.00 % 83.00/ min 16.00/min 25479 913 76196 6 97.40 Oral 38728 913 00333 6 234.00 NI 90291 913 92300 1 97.10 Oral 46304 914 82010 6 97.10 Oral 33630 914 12458 0 74.00 mm[Hg] - Sitting 124.00 mm[Hg] - Sitting 97.10 Oral 92.00 % 63.00/ min 20.00/min 56575 916 62867 5 58.00 mm[Hg] - Sitting 93.00 mm[Hg] - Sitting 98.20 X-Other 90.00 % 60.00/ min 18.00/min Immunizations Vaccine Date Status COVID-19 10/02/2020 Completed COVID-19 10/23/2020 Completed COVID-19 08/29/2021 Completed COVID-19 08/02/2022 Completed COVID-19 08/04/2023 Completed (PPSV23)Pneumococcal 05/25/2008 Completed (PCV20)Pneumococcal 05/03/2024 Completed TDaP 11/15/2013 Completed
--- OUTSIDE RECORDS SUMMARY | 2024-06-10 12:51 | External Medical Summary | Summary of Care ---
Author Name Unknown Organization [facility] Address [address] [place] [address] Phone [phone] Care Team Providers Care Federal Appellate Law Clerk Name Role Phone Verónica Benavides MD Primary Care Provide r Reason for Visit * Reason Onset Date Comments Skilled Visit 05/12/2024 Encounter Details Date Type Department Care Team (Latest Contact Info) Description 05/12/2024 8:00 AM EDT Half-Way Visit 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); Dermatitis associated with moisture Allergies Active Allergy Reactions Criticality Noted Date Comments Adhesive Tape Medium 01/30/2022 Ibuprofen Hives 01/13/2012 Aspirin Hives,Rash 09/15/2000 Sulfamethoxazole-Trimeth oprim Nausea/vomiting,Othe r (Please comment) 10/27/2020 Dizziness Ciprofloxacin Hcl 06/16/2019 Hoarse, dizzy,disoriented Morphine 09/21/2021 Blacked out Penicillins Hives,Rash 09/15/2000 Prednisone 12/30/2017 Weakness/memory changes/blurred vision documented as of this encounter (statuses as of 05/12/2024) Medications Medication Sig Dispensed Refills Start Date End Date Status GLUCOSAMINE CHONDR 500 COMPLEX PO CAPS Take by mouth 2 times a day. Active MAGNESIUM OXIDE 400 MG PO TABS one pill each day 10/20/2014 Active OneTouch Verio w/Device Kit Use up to 4 times a day E11.9 1 Kit 08/28/2020 Active Cyanocobalamin 1000 MCG Oral Tablet (Cyanocobalamin) Take 1 Tablet by mouth in the morning. 08/08/2021 Active Nystatin 364500 UNIT/GM External Powder (Nystop)Indications: Lydia rash of [...] TIMES DAILY 400 Strip 1 05/30/2023 Active Myrbetriq 25 MG Oral Tablet Extended Release 24 Hour (Mirabegron ER) Take 1 Tablet by mouth in the morning. 90 Tablet 3 07/08/2023 Active OneTouch Delica Plus [id number] :Type 2 diabetes mellitus with hemoglobin A1c goal of less than 8.0% ([facility]) Test up to two times daily or as directed by [facility] pharmacist 200 Each 3 07/11/2023 [...] EVERY MORNING 45 Tablet 3 03/03/2024 Active Fluorouracil 5 % External Cream (Efudex) Apply to site on right cheek twice daily x 6 weeks 40 g 03/22/2024 Active Metoprolol Succinate ER 25 MG Oral Tablet Extended Release 24 Hour (toPROL XL)Indications:Non-i schemic cardiomyopathy (HCC),Coronary artery disease involving chinik coronary artery 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 05/04/2024 Active Stool Softener 100 MG Oral Tablet (Docusate Sodium) Take 3 Tablets by mouth in the morning and 3 Tablets before bedtime. 05/04/2024 Active Sennosides 8.6 MG Oral Tablet Take 2 Tablets by mouth in the morning. 05/06/2024 Active Polyethylene Glycol 3350 17 GM/SCOOP Oral Powder (MiraLax) Take 17 g by mouth in the morning. Dissolve one heaping tablespoon in 8 ounces of water or juice.. 05/06/2024 Active documented as of this encounter (statuses [...] Continue synthroid Coronary artery disease invo lving chinik coronary artery of chinik heart without angina pectoris 07/03/2012 Overview: 60% [...] 08/03/2009 Overview: Per Lipid Taxonomy. OBESITY, UNSPECIFIED 03/30/2 010 Overview: Per Obesity Taxonomy Diverticulitis of colon 01/2018 Esophageal reflux 04/30/2018 Type 2 diabetes mellitus wit h hemoglobin A1c goal of less than 7.0% 06/22/2009 Overview: Per Diabetes Taxonomy. ICD-10 update of inactive term Impaired glucose tolerance 0 04/30/2018 documented as of this encounter (statuses as of 05/12/2024) Immunizations Name Administration Dates Next Due COVID-19 mRNA, LNP-s, No Pre serve, 2-Dose Series ([email or web address]) 08/29/2021,10/23/2020,10/02/2020 COVID-19, MRNA-LNP, 23-24, P F, 30 MCG/0.3 mL, 12 YRS AND ABOVE, IM ([email or web address]) 08/04/2023 Covid-19, Mrna, Lnp-s, Pf, B ivalent, 30 Mcg, IM, 12 yrs and above ([email or web address]) 08/02/2022 Pneumococcal Conjugate Vacc, 13 Valent (Prevnar) [...] AM EDT Scheduled Telephone [facility] [address] [place] [address] [facility] [address] [place] [address] 05/14/2024 7:00 AM EDT Laboratory Lab Mobile Phlebotomy [facility] [address] [place] [address] [facility], G[facility] Mobile Home Draw [address] [place] [address] 05/18/2024 2:20 PM EDT Office Visit Family Medicine [address] [place] [phone] Verónica Benavides MD [address] [place] [address] [place] [address] 05/24/2024 8:30 AM EDT Home Visit [facility] [address] [place] [address] Destiny Schultz RN [address] [place] [address] 10/01/2024 1:00 PM EST Telemedicine Family Medicine [address] [place] [phone] Kusum Jones CRNP [address] [place] [address] [place] [address] 10/13/2024 11:30 AM EST Telemedicine Urology, [facility] [place] [address] Chandler Pena MD [address] [facility] [place] [address] 11/24/2024 1:40 PM EDT Office Visit Dermatology [address] [place] [address] Sheryl Pena PA-C [address] [place] [address] [place] [address] 04/18/2025 1:20 PM EDT Telemedicine Family Medicine [address] [place] [phone] Verónica Benavides MD [address] [place] [address] [place] [address] Health Maintenance Due Date Last Done Comments [...] Additional history exists CKD PHOS USE SMARTSET 57225 05/05/202504/25, 04/30/2024, 04/02/2024, Additional history exists CKD HGB USE SMARTSET 11370 05/07/202505/07, 05/07/2024, 05/05/2024, Additional history exists Pneumococcal [...] and stage 3b chronic kidney disease (HCC) Dermatitis associated with moisture documented in this encounter Advance Directives Documents on File Type Date Recorded Patient Process Development Chemist Expl anation Advance Directives and Living Will 08/10/2021 ADVANCE DIRECTIVE / LIVING WILL LIVING WILL Healthcare Agents on File Name Relationship Healthcare Agent [facility] p Communication Josselyn Judd Adult Child Health Care Power of Attor nathalie Care Teams Federal Appellate Law Clerk Relationship Specialty Start Date End Date Verónica Benavides MD [address] [place] [address] [place] [phone] PCP - General Family Medicine 09/16/14 documented as of this encounter
--- OUTSIDE RECORDS SUMMARY | 2024-06-10 12:52 | External Medical Summary ---
Author Name Unknown Address Unknown Organization [id number][facility] [place] [address] Laboratory Report Ordering Provider Test Date Status APOLINAR ARMANDO 05/07/2024 05:35:00 Final Observation Date Value Abnormality Reference (Units ) Status BUN 05/07/2024 05:35:00 34 Above high normal 6-20 (mg/dL) Final Creatinine 05/07/2024 05:35:00 1.3 Above high normal 0.5-1.0 (mg/dL) Final Glomerular filtration rate/1.73 sq M.predicted [Volume Rate/Area] in Serum, Plasma or Blood by Creatinine-based formula (CKD-EPI) 05/07/2024 05:35:00 40 Below low normal >=60 (mL/min) Final eGFR is calculated based on the CKD-EPI 2020 equation. Sodium 05/07/2024 05:35:00 139 135-146 (m mol/L) Final Potassium 05/07/2024 05:35:00 4.4 3.5-5.1 (m mol/L) Final Cl 05/07/2024 05:35:00 100 98-107 (mm ol/L) Final CO2 05/07/2024 05:35:00 28 22-32 (mmo l/L) Final Anion gap 05/07/2024 05:35:00 11 7-15 (mmol /L) Final Glucose 05/07/2024 05:35:00 138 Above high normal 70 -120 (mg/dL) Final Calcium 05/07/2024 05:35:00 8.9 8.4-10.2 ( mg/dL) Final Performing Location LABORATORY [facility] [place] [address] - [address] [place] [address]
--- OUTSIDE RECORDS SUMMARY | 2024-06-10 12:52 | External Medical Summary ---
Author Name Unknown Address Unknown Organization [id number]:LAB[facility]ORY [facility] [place] [address] [place] [address] Laboratory Report Ordering Provider Test Date Status APOLINAR ARMANDO 05/07/2024 05:35:00 Final Observation Date Value Abnormality Reference (Units ) Status SYNC LEUKOCYTES IN BLOOD BY AUTOMATED COUNT 05/07/2024 05:35:00 9.52 4.00-10.80 (K/uL) Final Segs 05/07/2024 05:35:00 59.9 40.0-75.0 (%) Final Lymphs % 05/07/2024 05:35:00 26.1 18.0-42.0 (%) Final Monos 05/07/2024 05:35:00 13.1 Above high normal 1.0-11.0 (%) Final Eosinophils 05/07/2024 05:35:00 0.6 0.0-6.0 (%) Final Basos 05/07/2024 05:35:00 0.3 0.0-2.0 (%) Final Absolute Segs 05/07/2024 05:35:00 5.70 1.80-7.70 (K/uL) Final Lymphs, absolute 05/07/2024 05:35:00 2.48 1.00-4.80 (K/ul) Final Monos, Abs 05/07/2024 05:35:00 1.25 Above high normal 0.00-1.10 (K/uL) Final Eos, Abs 05/07/2024 05:35:00 0.06 0.00-0.70 (K/uL) Final Basos, Abs 05/07/2024 05:35:00 0.03 0.00-0.20 (K/uL) Final Performing Location LABORATORY [facility] [place] [address] - [address] [place] [address]
--- OUTSIDE RECORDS SUMMARY | 2024-06-10 12:52 | External Medical Summary ---
Author Name Unknown Address Unknown Organization K01:LAB[facility]ATORY [facility] [place] - [address] [place] [address] Laboratory Report Ordering Provider Test Date Status ARYABHAVANAAPOLINAR 05/07/2024 05:35:00 Final Observation Date Value Abnormality Reference (Units ) Status Iron 05/07/2024 05:35:00 77 33-151 (ug/dL) Final Iron-binding capacity 05/07/2024 05:35:00 245 Below low normal 250-425 (ug/dL) Final Transferrin Sat % 05/07/2024 05:35:00 31 15-55 (%) Final Performing Location LABORATORY C - [address] [place] [address]
--- OUTSIDE RECORDS SUMMARY | 2024-06-10 12:52 | External Medical Summary | Continuity Of Care Document ---
Author Name Unknown Address [address] [place] [address] Organization [facility] ( ) Care Team Providers Care Traffic Sign Erection Supervisor Name Role Phone Verónica Benavides Primary Care Provider [phone] Allergies Allergy Reaction Start Date End Date [...] abnormalities of gait and mobility 2023 Active S80.00XD Contusion of unspeci fied knee, subsequent encounter 04/28/2024 Active VITAL SIGNS Date Time Diastolic blood pressure Systolic blood pressure Body height Body weight Temperature SpO2 Blood Sugar Pulse Respirations 69879 904 56746 0 68.00 mm[Hg] - Sitting 116.00 mm[Hg] - Sitting 66 NI 235.00 NI 98.20 Ear 92.00 % 85.00/ min 18.00/min 69068 904 88477 7 66 NI 34414 904 18952 9 235.00 NI 38110 905 09021 5 11007 905 45266 2 98360 905 60450 3 59.00 mm[Hg] - Sitting 121.00 mm[Hg] - Sitting 98.40 Oral 92.00 % 74.00/ min 20.00/min 78583 906 19766 2 59.00 mm[Hg] - Sitting 121.00 mm[Hg] - Sitting 98.40 Ear 74.00/ min 20.00/min 60533 906 47805 8 02711 907 30051 0 58.00 mm[Hg] - Sitting 106.00 mm[Hg] - Sitting 97.90 Ear 92.00 % 66.00/ min 18.00/min 27773 910 16254 0 74.00 mm[Hg] - Sitting 114.00 mm[Hg] - Sitting 97.60 Ear 94.00 % 65.00/ min 18.00/min 05245 911 43815 1 98.20 Ear 18832 911 49390 6 97.50 Ear 35936 911 77284 9 55.00 mm[Hg] - Sitting 94.00 mm[Hg] - Sitting 98.30 Ear 94.00 % 69.00/ min 18.00/min 92761 911 96231 7 97.40 Ear 51947 912 57714 3 98.20 Ear 37129 912 76244 8 75.00 mm[Hg] - Sitting 117.00 mm[Hg] - Sitting 98.90 Ear 97.00 % 83.00/ min 16.00/min 71693 913 38603 6 97.40 Oral 99641 913 67436 6 234.00 NI 93570 913 71822 1 97.10 Oral 53533 914 45741 6 97.10 Oral 60263 914 96166 0 74.00 mm[Hg] - Sitting 124.00 mm[Hg] - Sitting 97.10 Oral 92.00 % 63.00/ min 20.00/min Immunizations Vaccine Date Status COVID-19 10/02/2020 Completed COVID-19 10/23/2020 Completed COVID-19 08/29/2021 Completed COVID-19 08/02/2022 Completed COVID-19 08/04/2023 Completed (PPSV23)Pneumococcal 05/25/2008 Completed (PCV20)Pneumococcal 05/03/2024 Completed TDaP 11/15/2013 Completed
--- OUTSIDE RECORDS SUMMARY | 2024-06-10 12:52 | External Medical Summary | Continuity Of Care Document ---
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 Name Role Phone Verónica Benavides Primary Care Provider [phone] Allergies Allergy Reaction Start Date End Date [...] abnormalities of gait and mobility 2023 Active VITAL SIGNS Date Time Diastolic blood pressure Systolic blood pressure Body height Body weight Temperature SpO2 Blood Sugar Pulse Respirations 904 60152 0 68.00 mm[Hg] - Sitting 116.00 mm[Hg] - Sitting 66 NI 235.00 NI 98.20 Ear 92.00 % 85.00/ min 18.00/min 41204 904 80388 7 66 NI 02467 904 40980 9 235.00 NI 07756 905 80673 5 53985 905 11543 2 03110 905 61398 3 59.00 mm[Hg] - Sitting 121.00 mm[Hg] - Sitting 98.40 Oral 92.00 % 74.00/ min 20.00/min 21928 906 33859 2 59.00 mm[Hg] - Sitting 121.00 mm[Hg] - Sitting 98.40 Ear 74.00/ min 20.00/min 33841 906 03621 8 44495 907 07476 0 58.00 mm[Hg] - Sitting 106.00 mm[Hg] - Sitting 97.90 Ear 92.00 % 66.00/ min 18.00/min 56058 910 43149 0 74.00 mm[Hg] - Sitting 114.00 mm[Hg] - Sitting 97.60 Ear 94.00 % 65.00/ min 18.00/min 70430 911 21109 1 98.20 Ear 72458 911 80898 6 97.50 Ear 70500 911 01988 9 55.00 mm[Hg] - Sitting 94.00 mm[Hg] - Sitting 98.30 Ear 94.00 % 69.00/ min 18.00/min 08475 911 70417 7 97.40 Ear 77145 912 35040 3 98.20 Ear 00236 912 82902 8 75.00 mm[Hg] - Sitting 117.00 mm[Hg] - Sitting 98.90 Ear 97.00 % 83.00/ min 16.00/min Immunizations Vaccine Date Status COVID-19 10/02/2020 Completed COVID-19 10/23/2020 Completed COVID-19 08/29/2021 Completed COVID-19 08/02/2022 Completed COVID-19 08/04/2023 Completed (PPSV23)Pneumococcal 05/25/2008 Completed TDaP 11/15/2013 Completed
--- OUTSIDE RECORDS SUMMARY | 2024-06-10 12:52 | External Medical Summary | Summary of Care ---
Author Name Unknown Organization [facility] Address [address] [place] [address] Phone [phone] Care Team Providers Care Butcher All Round Name Role Phone Verónica Benavides MD Primary Care Provide r Reason for Visit * Reason Onset Date Comments Alf Visit - Admission 05/05/2024 Encounter Details Date Type Department Care Team (Latest Contact Info) Description 05/05/2024 8:30 AM EDT Alf Visit [address] [place] [address] Verónica Benavides MD [address] [place] [address] [place] [address] Ambulatory dysfunction*; STEVE (acute kidney injury) ([facility]); Recurrent UTI (urinary tract infection); ESBL E. 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 ([facility]); Type 2 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 disease, without long-term current use of insulin ([facility]); Coronary artery disease involving king salmon coronary artery of king salmon heart without angina pectoris; Anemia, unspecified type; Nonrheumatic aortic valve stenosis; Biventricular cardiac pacemaker in situ Allergies Active Allergy Reactions Criticality Noted Date Comments Adhesive Tape Medium 01/30/2022 Ibuprofen Hives 01/13/2012 Aspirin Hives,Rash 09/15/2000 Sulfamethoxazole-Trimeth oprim Nausea/vomiting,Othe r (Please comment) 10/27/2020 Dizziness Ciprofloxacin Hcl 06/16/2019 Hoarse, dizzy,disoriented Morphine 09/21/2021 Blacked out Penicillins Hives,Rash 09/15/2000 Prednisone 12/30/2017 Weakness/memory changes/blurred vision documented as of this encounter (statuses as of 05/05/2024) Medications Medication Sig Dispensed Refills Start Date [...] mouth in the morning. 08/08/2021 Active Nystatin 844678 UNIT/GM External Powder (Nystop)Indications: Lydia rash of [...] Tablet 3 07/08/2023 Active OneTouch Delica Plus [id number] :Type 2 diabetes mellitus with hemoglobin A1c goal of less than 8.0% ([facility]) Test up to two times daily or as directed by [facility] pharmacist 200 Each 3 07/11/2023 [...] no improvement on day 3, contact [facility] for possible home visit 1 Each 11/28/2023 [...] XL)Indications:Non-i schemic cardiomyopathy (HCC),Coronary artery disease involving king salmon coronary artery of king salmon heart without angina pectoris,HTN, goal below 140/90 [...] and 3 Tablets before bedtime. 05/04/2024 Active documented as of this encounter (statuses as of 05/05/2024) Active Problems Problem Noted Date Diagnosed Date [...] carrier 06/29/2021 Last Assessment & Plan: [facility] Triage Call: Reviewed last C&S - treated [...] Continue synthroid Coronary artery disease invo lving king salmon coronary artery of king salmon heart without angina pectoris 07/03/2012 Overview: 60% [...] as of this encounter (statuses as of 05/05/2024) Resolved Problems Problem Noted Date Diagnosed Date [...] as of this encounter (statuses as of 05/05/2024) Immunizations Name Administration Dates Next Due COVID-19 mRNA, LNP-s, No Pre serve, 2-Dose Series ([employer]) 08/29/2021,10/23/2020,10/02/2020 COVID-19, MRNA-LNP, 23-24, P F, 30 MCG/0.3 mL, 12 YRS AND ABOVE, IM [facility] 08/04/2023 Covid-19, Mrna, Lnp-s, Pf, B ivalent, 30 Mcg, IM, 12 yrs and above ([employer]) 08/02/2022 Pneumococcal Conjugate Vacc, 13 Valent (Prevnar) [...] Progress Notes * Verónica Benavides MD - 05/05/2024 11:40 AM EDT ADMISSION HISTORY and PHYSICAL TRANSITION EVENT: Type: SNF admission Date: April 28 Code Status: Full Code Name: Regla Castano Date of : 1935 This note pertains to care provided at [facility]. Please see facility medical record for original note. This note is not to be edited or addended in [employer]. Editing or addending needs to occur in the facilities medical record. S: Regla Castano had been admitted to [facility] from [facility] for PT and OT. Recently admitted to [facility] on 04/24/24 because of fall to knees and inability to ambulate and was transferred here and admitted on 04/28/2024. Patient with PMH of recurrent UTIs, often with ESBL E Coli followed by urology,hypertension, chronic systolic CHF and type 2 diabetes [...] landed on her right hip. She continued tohave right hip and knee pain. Family and care aides were not able to get her up and EMS was called.Patient was under treatment for Proteus UTI with [...] as ordered outpatient, with last dose being today. She was continued on torsemide 60 mg twice daily and spironolactone 12.5 mg daily for CHF. However,she actually takes 60 mg in AM and 40 mg in the afternoon and only takes 60 mg in the afternoon forweight gain of 3 pounds or more and does not regularly take 60 mg twice daily. She is also on a long-term 1800 mL fluid restriction. Patient states she is very thirsty here following this fluid restriction. Patient recently completed Efudex cream for SCC of the right cheek and has a large scabbed area. Pictures were sent to dermatology and healing as expected. She has Vaseline ordered daily as per recommendations. Patient is now admitted for PT/OT. She plans to return home with family and care aides. She is someone with her 17/03. She states she is feeling OK. Appetite is good. She denies any cough, chest pain,or shortness of breath. Leg edema is stable. She states she does not like the fluid restriction andher mouth is dry. She has been on this fluid restriction for several years due to CHF and marked lymphedema. She reports ongoing weakness and difficulty with ambulating. States she wants to get stronger but not do "too much." Results for orders placed or performed in visit on 05/05/24 CBC Result Value Ref Range WBC 6.65 4.00 - 10.80 K/uL RBC 2.33 3.85 - 5.15 M/uL HGB 9.0 (L) 12.0 - 15.3 g/dL HCT 28.3 (L) 36.0 - 45.2 % MCV 121.5 81.5 - 97.5 fL MCH 38.6 27.0 - 34.0 pg MCHC 31.8 32.0 - 36.0 g/dL RDW 14.4 11.5 - 15.5 % PLT 363 140 - 400 K/uL MPV 9.8 6.6 - 11.1 fL COMPREHENSIVE METABOLIC PANEL Result Value Ref Range BUN 33 (H) 6 - 20 mg/dL Creatinine 1.5 (H) 0.5 - 1.0 mg/dL Estimated Glomerular Filtration Rate 33 (L) >=60 mL/min Sodium 142 135 - 146 mmol/L Potassium 4.3 3.5 - 5.1 mmol/L Chloride 103 98 - 107 mmol/L CO2 30 22 - 32 mmol/L Anion Gap 9 7 - 15 mmol/L Glucose 189 (H) 70 - 120 mg/dL Albumin 3.7 (L) 3.8 - 5.0 g/dL AST 12 10 - 35 U/L Alkaline Phosphatase 75 35 - 130 U/L Bilirubin, Total 0.4 <=1.2 mg/dL Calcium 9.1 8.4 - 10.2 mg/dL Protein 6.4 6.0 - 8.3 g/dL ALT 11 10 - 35 U/L *Note: Due to a large number of results and/or encounters for the requested time period, some results have not been displayed. A complete set of results can be found in Results Review. 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, without long-term current use of insulin ([facility]) Lymphedema of both lower extremities Benign paroxysmal vertigo of both ears Gastroesophageal reflux disease without esophagitis Type 2 diabetes mellitus with mild nonproliferative diabetic retinopathy without macular edema, right eye ([facility]) 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 MAGNESIUM OXIDE 400 MG PO TABS one pill each day [employer] w/Device Kit Use up to 4 times a day E11.9 1 Kit 0 Cyanocobalamin 1000 MCG Oral Tablet (Cyanocobalamin) Take 1 Tablet by mouth in the morning. Nystatin 568935 UNIT/GM External Powder (Nystop) Apply topically to [...] cut, crush or chew 40 Tablet 1 Leatt Verio In Vitro Strip (Glucose Blood) TEST UP TO FOUR TIMES DAILY 400 Strip 1 Myrbetriq 25 MG Oral Tablet Extended Release 24 Hour (Mirabegron ER) Take 1 Tablet by mouth in the morning. 90 Tablet 3 Vettrouch Delica Plus [id number] Test up to two times daily or as directed by [facility] pharmacist 200 Each 3 Estrogens Conjugated [...] no improvement on day 3, contact [facility] for possible home visit 1 Each 0 [...] meal of the day.. 90 Capsule 1 Spironolactone 25 MG Oral Tablet (Aldactone) TAKE 1/2 TABLET BY MOUTH EVERY MORNING 45 Tablet 3 Fluorouracil 5 % External Cream (Efudex) Apply to site on right cheek twice daily x 6 weeks 40 g 0 Metoprolol Succinate ER 25 MG Oral Tablet Extended Release 24 Hour (toPROL XL) TAKE ONE TABLET BY MOUTH in the evening 90 Tablet 1 Diclofenac Sodium 1 % External Gel (Voltaren) Apply topically to affected area 3 times a day as needed for Pain, Mild. 50 g 3 Phenazopyridine HCl 200 MG Oral Tablet (Pyridium) Take 1 Tablet by mouth 3 times a day as needed for Pain, Severe. After meals for pain with urination 6 Tablet 0 Torsemide 20 MG Oral Tablet (Demadex) take THREE tablets BY MOUTH EVERY MORNING, TWO tablets IN afternoon - additional tablet IN afternoon ONLY if directed by healthcare provider FOR weight gain of THREE lbs OR more 180 Tablet 3 Acetaminophen 325 MG Oral Tablet (Tylenol) Take 2 Tablets by mouth every 4 hours as needed for Fever >38C(100.5F), Pain, Severe, Pain, Moderate or Pain, Mild. Stool Softener 100 MG Oral Tablet (Docusate Sodium) Take 3 Tablets by mouth in the morning and 3 Tablets before bedtime. No current facility-administered medications for this visit. Review of patient's allergies indicates: Allergen Reactions Adhesive Tape Advil [Ibuprofen] Hives Aspirin Hives and Rash Bactrim [Sulfamethoxazole-Trimethoprim] Nausea/vomiting and Other (Please comment) Dizziness Ciprofloxacin Hcl Hoarse, dizzy,disoriented Morphine Blacked out Penicillins Hives and Rash Prednisone Weakness/memory changes/blurred vision Social History Tobacco Use Smoking status: Never Smokeless tobacco: Never Substance Use Topics Alcohol use: No Vaping/E-Cigarette Use Vaping/E-Cigarette Use Never User Vaping/E-Cigarette Substances Vaping/E-Cigarette Devices Past Surgical History: Procedure Laterality Date ANESTH, [...] accident Robby Alive Robby Alive Son Alive Results for orders placed or performed in visit on 05/05/24 CBC Result Value Ref Range WBC 6.65 4.00 - 10.80 K/uL RBC 2.33 3.85 - 5.15 M/uL HGB 9.0 (L) 12.0 - 15.3 g/dL HCT 28.3 (L) 36.0 - 45.2 % MCV 121.5 81.5 - 97.5 fL MCH 38.6 27.0 - 34.0 pg MCHC 31.8 32.0 - 36.0 g/dL RDW 14.4 11.5 - 15.5 % PLT 363 140 - 400 K/uL MPV 9.8 6.6 - 11.1 fL COMPREHENSIVE METABOLIC PANEL Result Value Ref Range BUN 33 (H) 6 - 20 mg/dL Creatinine 1.5 (H) 0.5 - 1.0 mg/dL Estimated Glomerular Filtration Rate 33 (L) >=60 mL/min Sodium 142 135 - 146 mmol/L Potassium 4.3 3.5 - 5.1 mmol/L Chloride 103 98 - 107 mmol/L CO2 30 22 - 32 mmol/L Anion Gap 9 7 - 15 mmol/L Glucose 189 (H) 70 - 120 mg/dL Albumin 3.7 (L) 3.8 - 5.0 g/dL AST 12 10 - 35 U/L Alkaline Phosphatase 75 35 - 130 U/L Bilirubin, Total 0.4 <=1.2 mg/dL Calcium 9.1 8.4 - 10.2 mg/dL Protein 6.4 6.0 - 8.3 g/dL ALT 11 10 - 35 U/L *Note: Due to a large number of results and/or encounters for the requested time period, some results have not been displayed. A complete set of results can be found in Results Review. Hemoglobin AIC Results: Lab Results Component Value Date/Time HEMOGLOBIN A1C - [facility] 7.3 (H) 04/02/2024 09:53 AM HEMOGLOBIN A1C - [facility] 9.6 (H) 02/11/2023 01:40 PM HEMOGLOBIN A1C - [facility] 7.6 (H) 11/01/2022 06:18 AM HEMOGLOBIN A1C - [facility] 6.4 (H) 06/06/2020 11:14 AM HEMOGLOBIN A1C - [facility] 6.5 (H) 11/09/2019 03:52 PM HEMOGLOBIN A1C - [facility] 6.2 (H) 07/09/2019 03:08 PM CBC Results: Results for orders placed or performed in visit on 05/05/24 CBC Result Value Ref Range WBC 6.65 4.00 - 10.80 K/uL RBC 2.33 3.85 - 5.15 M/uL HGB 9.0 (L) 12.0 - 15.3 g/dL HCT 28.3 (L) 36.0 - 45.2 % MCV 121.5 81.5 - 97.5 fL MCH 38.6 27.0 - 34.0 pg MCHC 31.8 32.0 - 36.0 g/dL RDW 14.4 11.5 - 15.5 % PLT 363 140 - 400 K/uL MPV 9.8 6.6 - 11.1 fL Hemoglobin Results: Lab Results Component Value Date/Time HGB 9.0 (L) 05/05/2024 05:38 AM HGB 8.9 (L) 04/30/2024 05:31 AM HGB 9.8 (L) 04/02/2024 09:53 AM HGB 12.5 08/04/2020 12:02 PM HGB 11.2 (L) 07/14/2020 12:47 PM HGB 11.6 (L) 07/07/2020 11:05 AM Creatinine Results: Lab Results Component Value Date/Time CREATININE - [facility] 1.5 (H) 05/05/2024 05:38 AM CREATININE - [facility] 1.2 (H) 04/30/2024 05:31 AM CREATININE - [facility] 0.9 04/02/2024 09:53 AM CREATININE - [facility] 1.1 (H) 09/13/2020 [...] AM CREATININE-OUTSIDE LAB 0.8 10/12/2015 12:00 AM Lab Results Component Value Date/Time TSH - [facility] 6.01 (H) 04/02/2024 09:53 AM TSH - [facility] 4.22 (H) 03/25/2023 06:08 AM TSH - [facility] 3.46 02/24/2023 02:00 PM TSH - [facility] 6.83 (H) 07/14/2020 12:47 PM TSH - [facility] 4.11 11/09/2019 03:52 PM TSH - [facility] 4.90 (H) 09/01/2018 03:55 PM TSH - OUTSIDE LAB 3.030 05/31/2018 12:00 AM Review of Systems: Constitutional ROS: No change in weight, No fevers, sweats, or chills, and +generalized weakness Eye ROS: No recent significant change in vision and No eye pain, redness, discharge Ear ROS: No ear pain, No drainage, No tinnitus or vertigo, and No recent change in hearing Nose ROS: No history of frequent colds or sinusitis, No nasal stuffiness, No history of Hay Fever, and No significant epistaxis Mouth/Throat ROS: No bleeding gums, No thrush, or No sore throat Pulmonary ROS: No cough, sputum, or hemoptysis, No wheezing, and No recent change in breathing Cardiovascular ROS: No chest pain, No shortness of breath, No orthopnea, No paroxysmal nocturnal dyspnea, No palpitations, No syncope, and +chronic lymphedema, CHF, severe aortic stenosis, and GARNICA Gastrointestinal ROS: No abdominal pain, No change in bowel habits, No significant heartburn, No significant change in appetite, No nausea, vomiting, diarrhea, or constipation, No hematemesis, No blood in stools or black tarry stools, No abdominal bloating or early satiety, and No dysphagia Genito-Urinary Female ROS: +near constant recurrent UTIs. Currently finishing Abx Musculoskeletal/Extremities ROS: +generalized OA Hematologic/Lymphatic ROS: No coagulation disorder, No abnormal bleeding, No chills, No bruising, and +anemia Skin/Integumentary ROS: No rash Neurologic ROS: No headaches and No seizures Endocrine ROS: No heat intolerance, No cold intolerance, and +type 2 diabetes and hypothyroidism Psychiatric ROS: No depression, No anxiety, and No psychosis ADL skills: dependent Ambulates with walker OBJECTIVE: PHYSICAL EXAM: I reviewed the most recent facilities vitals. Refer to vital signs flowsheet in long-term chart.General: alert, no distress, well nourished, well developed, and +morbidly obese Head: Normocephalic, No masses, lesions, tenderness or abnormalities Eye Exam: PERRLA, extraocular movements intact, conjunctiva are pink and non- injected, sclera clear Ears: External ears normal Nose: no mucosal erythema, no mucosal edema, no purulent discharge Oropharynx: no exudate, no erythema, lips, buccal mucosa, and tongue normal, and mucous membranes are moist Neck: supple, no adenopathy, no bruits Heart: regular rate & rhythm, no gallops, and 3/6 holosystolic low pitched harsh murmur aortic area Lungs: chest symmetric with normal AP diameter, no chest deformities noted, no chest wall tenderness, lungs clear to auscultation Abdomen: abdomen soft, non-tender, normal bowel sounds, and no masses or organomegaly Extremities: +nonpitting marked lymphedema of bilateral lower extremities Neuro Exam: alert & oriented x 3 with fluent speech, no focal motor/sensory deficits ASSESSMENT: Ambulatory dysfunction (Primary)--here for PT/OT. STEVE (acute kidney injury) ([facility])--patient inadvertently discharged on her DTP protocol dose of torsemide. Reduce to 60 mg in AM and 40 mg in afternoon per home dose. Repeat BMP 05/07/24. Also, patient may not be following the fluid restriction as closely at home as she would here and in hospital. Patient reporting her mouth is very dry. Recurrent UTI (urinary tract infection)--complete Cefdinir as ordered today. ESBL E. 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--most recent UTI was Proteus. 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 Follow-up with dermatology as directed. Lymphedema of both lower extremities--continue torsemide as above and spironolactone 12.5 mg daily. Morbid obesity with BMI of 45.0-49.9, adult ([facility])--very sedentary chronically. 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 Hypertension controlled with metoprolol succinate 25 mg daily. Type 2 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 disease, without long-term current use of insulin ([facility])--continue Trulicity 0.75 mg weekly. Last A1C at goal. Coronary artery disease involving king salmon coronary artery of king salmon heart without angina pectoris--no new cardiac symptoms Anemia--unspecified type--check follow-up CBC, iron screen, ferritin, B12, and folic acid. Nonrheumatic aortic valve stenosis--severe Biventricular cardiac pacemaker in situ PLAN: 1. Continue present medication(s): Change dose of medication(s) to Reduce torsemide to her home dose of 60 mg in AM and 40 mg in late afternoon. Patient with mild STEVE that could be related to the increased dose of torsemide she was discharged on (60 mg twice daily) instead of her home dose. Schedule labs: CBC w/diff, iron screen, ferritin, B12, and folic acid for anemia and BMP, both on 05/07/24, to follow-up STEVE on CKD. 2. Admission orders, medications, labs, hospital records and care plan reviewed. 3. Psych Np consult, Physical Therapy, Occupational Therapy, and Speech Therapy ordered. 4. Care plan reviewed. 5. Advance Directives were discussed: Full Code 6. Usp Home Treatment Given: Other n/a Electronically signed by: Verónica Benavides MD I spent a total of 52 minutes coordinating, documenting, and providing care for this patient excluding time spent in the performance of separately billed services or time spent by another provider/QHP. documented in this encounter Plan of Treatment Upcoming Encounters Date Type Department Care Team (Late st Contact Info) Description 05/06/2024 10:30 AM EDT Scheduled Telephone [facility], [facility] [address] [facility] [place] [address] Baylee Sandhu, [address] [place] [address] 05/14/2024 7:00 AM EDT Laboratory Lab Mobile Phlebotomy [facility] [address] [place] [address] [facility] Home Draw [address] [place] [address] 05/24/2024 8:30 AM EDT Home Visit [facility], [facility] [address] [facility] [place] [address] Destiny Schultz, POPPY [address] [place] [address] 10/01/2024 1:00 PM EST Telemedicine Family Medicine [address] [place] [id number] Kusum Jones CRNP [address] [place] [address] [place] [address] 10/13/2024 11:30 AM EST Telemedicine Urology, [facility] [address] [facility] [place] [address] Chandler Pena MD [address] [facility] [place] [address] 11/24/2024 1:40 PM EDT Office Visit Dermatology [address] [place] [address] Sheryl Pena PA-C [address] [place] [address] [place] [address] 04/18/2025 1:20 PM EDT Telemedicine Family Medicine [address] [place] [phone] Verónica Benavides MD [address] [place] [address] [place] [address] Health Maintenance Due Date Last Done Comments Zoster Vaccines (1 of 2) 1985 Adult Wellness Visit 09/11/2016 09/11/2015 DXA Scan 04/02/2020 04/02/2017, 12/24, 11/05/2007 Depression Screening 05/24/2020 05/24/2019 Diabetic Foot Exam 11/08/2020 11/09/2019, 0 09/01/2018, 08/28/2017, Additional history exists DTap/Tdap Vaccines (2 - Td or Tdap) 11/16/2023 11/15/2013, 03/29/2008, 03/29/2008 Diabetic Eye Exam 12/22/2023 12/21/2022, , 03/10/2021, Additional history exists COVID-19 Vaccine (2022- season) 2024 08/04/2023, 08/04/2023, 08/02/2022, Additional history exists Influenza Vaccine (FLU shot) (#1) 2024 06/20/2022, 06/20/2022, 06/29/2021, Additional history exists HbA1c 10/03/2024 04/02/2024, 01/24, 11/01/2022, Additional history exists TSH 04/02/2025 04/02/2024, 08/2022, 02/24/2023, Additional history exists Albumin/Creatinine Ratio 04/19/2025 024, 02/07/2023, 01/18/2022, Additional history exists CKD PHOS USE SMARTSET [id number] 04/30/2025 09/0 01/2024, 04/02/2024, 02/07/2023, Additional history exists CKD HGB USE SMARTSET [id number] 05/05/202505/05, 04/30/2024, 04/30/2024, Additional history exists Pneumococcal Vaccine: 65+ Years [...] kidney injury) (HCC) Acute kidney failure, unspecified Recurrent UTI (urinary tract infection) Urinary tract infection, site not specified ESBL E. 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) Type 2 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 disease, without long-term current use of insulin (HCC) Coronary artery disease involving king salmon coronary artery of king salmon heart without angina pectoris Anemia, unspecified type Nonrheumatic aortic valve stenosis Aortic valve disorders Biventricular cardiac pacemaker in situ Cardiac pacemaker in situ documented in this encounter Advance Directives Documents on File Type Date Recorded Patient Configuration Technician Expl anation Advance Directives and Living Will 08/10/2021 ADVANCE DIRECTIVE / LIVING WILL LIVING WILL Healthcare Agents on File Name Relationship Healthcare Agent Relationshi p Communication Josselyn Judd Adult Child Health Care Power of Attor nathalie Care Teams Butcher All Round Relationship Specialty Start Date End Date Verónica Benavides MD [address] [place] [address] [place] [address] PCP - General Family Medicine 09/16/14 documented as of this encounter
--- OUTSIDE RECORDS SUMMARY | 2024-06-10 12:52 | External Medical Summary ---
Author Name Unknown Address Unknown Organization K0G:LABORATORY [facility] [address] [place] [address] Laboratory Report Ordering Provider Test Date Status APOLINAR ARMANDO 05/07/2024 05:35:00 Final Observation Date Value Abnormality Reference (Units ) Status WBC, Total 05/07/2024 05:35:00 9.52 4.00-10.8 0 (K/uL) Final RBC 05/07/2024 05:35:00 2.24 3.85-5.15 (M/uL) Final Hemoglobin 05/07/2024 05:35:00 8.6 Below low normal 12 .0-15.3 (g/dL) Final HCT 05/07/2024 05:35:00 26.9 Below low normal 36. 0-45.2 (%) Final MCV 05/07/2024 05:35:00 120.1 81.5-97.5 (fL) Final MCH 05/07/2024 05:35:00 38.4 27.0-34.0 (pg) Final MCHC 05/07/2024 05:35:00 32.0 32.0-36.0 (g/dL) Final RDW 05/07/2024 05:35:00 14.2 11.5-15.5 (%) Final Platelets 05/07/2024 05:35:00 340 140-400 (K /uL) Final MPV 05/07/2024 05:35:00 9.9 6.6-11.1 ( fL) Final Performing Location [facility] [address] [place] [address]
--- OUTSIDE RECORDS SUMMARY | 2024-06-10 12:52 | External Medical Summary | Continuity Of Care Document ---
Author Name Unknown Address [address] [place] [address] Organization [facility] ( ) Care Team Providers Care Electrical Integrator Name Role Phone Verónica Benavides Primary Care Provider [phone] Allergies Allergy Reaction Start Date End Date [...] Temperature SpO2 Blood Sugar Pulse Respirations 904 24637 0 68.00 mm[Hg] - Sitting 116.00 mm[Hg] - Sitting 66 NI 235.00 NI 98.20 Ear 92.00 % 85.00/ min 18.00/min 05349 904 96729 7 66 NI 35268 904 05012 9 235.00 [place] [address] 905 17894 5 45048 905 60081 2 21769 905 69653 3 59.00 mm[Hg] - Sitting 121.00 mm[Hg] - Sitting 98.40 Oral 92.00 % 74.00/ min 20.00/min 79999 906 59813 2 59.00 mm[Hg] - Sitting 121.00 mm[Hg] - Sitting 98.40 Ear 74.00/ min 20.00/min 50562 906 97044 8 18954 907 25188 0 58.00 mm[Hg] - Sitting 106.00 mm[Hg] - Sitting 97.90 Ear 92.00 % 66.00/ min 18.00/min 63241 910 56452 0 74.00 mm[Hg] - Sitting 114.00 mm[Hg] - Sitting 97.60 Ear 94.00 % 65.00/ min 18.00/min 60986 911 90016 1 98.20 Ear 45614 911 01129 6 97.50 Ear 14104 911 85362 9 55.00 mm[Hg] - Sitting 94.00 mm[Hg] - Sitting 98.30 Ear 94.00 % 69.00/ min 18.00/min 66720 911 73760 7 97.40 Ear 58065 912 34537 3 98.20 Ear 96366 912 90698 8 75.00 mm[Hg] - Sitting 117.00 mm[Hg] - Sitting 98.90 Ear 97.00 % 83.00/ min 16.00/min 26995 913 45411 6 97.40 Oral 69625 913 17183 6 234.00 NI 68916 913 48081 1 97.10 Oral 75548 914 00338 6 97.10 Oral 42090 914 19196 0 74.00 mm[Hg] - Sitting 124.00 mm[Hg] - Sitting 97.10 Oral 92.00 % 63.00/ min 20.00/min Immunizations Vaccine Date Status COVID-19 10/02/2020 Completed COVID-19 10/23/2020 Completed COVID-19 08/29/2021 Completed COVID-19 08/02/2022 Completed COVID-19 08/04/2023 Completed (PPSV23)Pneumococcal 05/25/2008 Completed (PCV20)Pneumococcal 05/03/2024 Completed TDaP 11/15/2013 Completed
--- OUTSIDE RECORDS SUMMARY | 2024-06-10 12:52 | External Medical Summary | Summary of Care ---
Author Name Unknown Organization [facility] Address [address] [place] [address] Phone [phone] Care Team Providers Care Bank Sales And Service Manager Name Role Phone Verónica Benavides MD Primary Care Provide r Reason for Visit * Reason Onset Date Comments [facility]: Maintenance 05/06/2024 Encounter Details Date Type Department Care Team (Late st Contact Info) Description 05/06/2024 10:30 AM EDT Scheduled Telephone [facility], [facility] [address] [place] [facility] [place] [address] Baylee Sandhu, [address] [place] [address] Allergies Active Allergy Reactions Criticality Noted Date Comments Adhesive Tape Medium 01/30/2022 Ibuprofen Hives 01/13/2012 Aspirin Hives,Rash 09/15/2000 Sulfamethoxazole-Trimeth oprim Nausea/vomiting,Othe r (Please comment) 10/27/2020 Dizziness Ciprofloxacin Hcl 06/16/2019 Hoarse, dizzy,disoriented Morphine 09/21/2021 Blacked out Penicillins Hives,Rash 09/15/2000 Prednisone 12/30/2017 Weakness/memory changes/blurred vision documented as of this encounter (statuses as of 05/06/2024) Medications Medication Sig Dispensed Refills Start Date [...] mouth in the morning. 08/08/2021 Active Nystatin 162144 UNIT/GM External Powder (Nystop)Indications: Lydia rash of [...] without long-term current use of insulin ([facility]),Type 2 diabetes mellitus with hemoglobin A1c goal of less than 8.0% ([facility]) TEST UP TO FOUR TIMES DAILY 400 Strip 1 05/30/2023 Active Myrbetriq 25 MG Oral Tablet Extended Release 24 Hour (Mirabegron ER) Take 1 Tablet by mouth in the morning. 90 Tablet 3 07/08/2023 Active OneTouch Delica Plus [id number] :Type 2 diabetes mellitus with hemoglobin A1c [...] XL)Indications:Non-i schemic cardiomyopathy (HCC),Coronary artery disease involving [place]oon[place] coronary artery of hoonah heart without angina pectoris,HTN, goal below 140/90 [...] as of this encounter (statuses as of 05/06/2024) Active Problems Problem Noted Date Diagnosed Date [...] Continue synthroid Coronary artery disease invo lving hoonah coronary artery of hoonah heart without angina pectoris 07/03/2012 Overview: 60% [...] as of this encounter (statuses as of 05/06/2024) Resolved Problems Problem Noted Date Diagnosed Date [...] as of this encounter (statuses as of 05/06/2024) Immunizations Name Administration Dates Next Due COVID-19 mRNA, LNP-s, No Pre serve, 2-Dose Series ([place]) 08/29/2021,10/23/2020,10/02/2020 COVID-19, MRNA-LNP, 23-24, P F, 30 MCG/0.3 mL, 12 YRS AND ABOVE, IM ([facility]) 08/04/2023 Covid-19, Mrna, Lnp-s, Pf, [...] Telephone Encounter - Baylee Sandhu CM - 05/06/2024 11:43 AM EDT Call placed to [facility]. Spoke with Lilli in psychiatric social worker supervisor. Possible dc 05/14. CW will f/u at that time for dc planning Baylee Sandhu Principal Research Economist [email or web address] documented in this encounter Plan of Treatment Upcoming Encounters Date Type Department Care Team (Late st Contact Info) Description 05/13/2024 11:30 AM EDT Scheduled Telephone [facility], [facility] [address] [facility] [place] [address] Baylee Sandhu CM [address] [facility] [place] [address] 05/14/2024 7:00 AM EDT Laboratory Lab Mobile Phlebotomy [facility] [address] [place] [address] Mvmg, Gml Mobile Home Draw [address] [employer] [address] 05/24/2024 8:30 AM EDT Home Visit [facility], [facility] [place] [address] Destiny Schultz RN [address] [facility] [place] [address] 10/01/2024 1:00 PM EST Telemedicine Family Medicine [address] [place] [phone] Kusum Jones CRNP [address] [place] [address] [place] [address] 10/13/2024 11:30 AM EST Telemedicine Urology, [facility] [address] [place] [address] Chandler Pena MD [address] [place] [address] 11/24/2024 1:40 PM EDT Office Visit Dermatology [address] [place] [address] Sheryl Pena PA-C [address] [place] [address] [place] [address] 04/18/2025 1:20 PM EDT Telemedicine Family Medicine [address] [place] [phone] Verónica Benavides MD [address] [place] [address] [place] [address] Health Maintenance Due Date Last Done Comments [...] 06/29/2021, Additional history exists HbA1c 10/03/2024 04/02/2024, 06, 11/01/2022, Additional history exists TSH 04/02/2025 04/02/2024, 08/2022, 02/24/2023, Additional history exists Albumin/Creatinine Ratio 04/19/2025 024, 02/07/2023, 01/18/2022, Additional history exists CKD HGB USE SMARTSET 87438 05/05/202505/05, 04/30/2024, 04/30/2024, Additional history exists CKD PHOS USE SMARTSET 07563 05/05/202504/25, 04/30/2024, 04/02/2024, Additional history exists Pneumococcal Vaccine: 65+ Years [...] Documents on File Type Date Recorded 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
--- OUTSIDE RECORDS SUMMARY | 2024-06-10 12:52 | External Medical Summary ---
Author Name Unknown Address Unknown Organization K01:[facility] [place] [address] [place] [address] Laboratory Report Ordering Provider Test Date Status APOLINAR ARMANDO 05/07/2024 05:35:00 Final Observation Date Value Abnormality Reference (Units ) Status Folic Acid 05/07/2024 05:35:00 14.4 >4.5 (ng/ mL) Final Performing Location [facility] - [address] [place] [address]
--- OUTSIDE RECORDS SUMMARY | 2024-06-10 12:52 | External Medical Summary | Summary of Care ---
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 08/08/2021 Active Nystatin 279621 UNIT/GM External Powder (Nystop)Indications: Lydia rash of [...] long-term current use of insulin ([facility]),Type 2 diabetes mellitus with hemoglobin A1c goal of less than 8.0% ([facility]) TEST UP TO FOUR TIMES DAILY 400 Strip 1 05/30/2023 Active Myrbetriq 25 MG Oral Tablet Extended Release 24 Hour (Mirabegron ER) Take 1 Tablet by mouth in the morning. 90 Tablet 3 07/08/2023 Active OneTouch Delica Plus [id number] :Type 2 diabetes mellitus with hemoglobin A1c goal of less than 8.0% ([facility]) Test up to two times daily or as directed by [facility] pharmacist 200 Each 3 [...] XL)Indications:Non-i schemic cardiomyopathy (HCC),Coronary artery disease involving [place] coronary [...] mRNA, LNP-s, No Pre serve, 2-Dose Series ([employer]) 08/29/2021,10/23/2020,10/02/2020 COVID-19, MRNA-LNP, 23-24, P F, 30 MCG/0.3 mL, 12 YRS AND ABOVE, IM [facility] 08/04/2023 Covid-19, Mrna, Lnp-s, Pf, B ivalent, 30 Mcg, IM, 12 yrs and above ([employer] [facility]) 08/02/2022 Pneumococcal Conjugate Vacc, 13 Valent (Prevnar) [...] AM EDT Scheduled Telephone [facility], [facility] [place] [address] [facility] [place] [address] Baylee Sandhu, [address] [place] [address] 05/14/2024 7:00 AM EDT Laboratory Lab Mobile Phlebotomy [facility] [address] [facility] [place], [place] [address] Mvmg, Gml Mobile Home Draw [address] [facility], [place] [address] 05/24/2024 8:30 AM EDT Home Visit [facility], [facility] [address] [place] [address] Destiny Schultz, POPPY [address] [place] [address] 10/01/2024 1:00 PM EST Telemedicine Family Medicine [address] [place] [phone] Kusum Jones CRNP [address] [place] [address] [place] [address] 10/13/2024 11:30 AM EST Telemedicine Urology, [facility] [address] [facility] [place] [address] Chandler Pena MD [address] [place] [address] 11/24/2024 1:40 PM EDT Office Visit Dermatology [address] [place] [address] Sheryl Pena PA-C [address] [place] [address] [place] [address] 04/18/2025 1:20 PM EDT Telemedicine Family Medicine [address] [place] [phone] Verónica Benavides MD [address] [place] [address] [place] [address] Health Maintenance Due Date Last Done Comments [...] Additional history exists CKD HGB USE SMARTSET 19604 05/05/202505/05, 04/30/2024, 04/30/2024, Additional history exists CKD PHOS USE SMARTSET 43009 05/05/202504/25, 04/30/2024, 04/02/2024, Additional history exists Pneumococcal [...] and stage 3b chronic kidney disease (HCC) Slow transit constipation documented in this encounter Advance Directives Documents on File Type Date Recorded Patient Client Support Professional Expl anation Advance Directives and Living Will 08/10/2021 ADVANCE DIRECTIVE / LIVING WILL LIVING WILL Healthcare Agents on File Name Relationship Healthcare Agent [facility] Communication Josselyn Judd Adult Child Health Care Power of Attor nathalie Care Teams Appeals Officer Relationship Specialty Start Date End Date Verónica Benavides MD [address] [place] [address] [place] [phone] PCP - General Family Medicine 09/16/14 documented as of this encounter
--- OUTSIDE RECORDS SUMMARY | 2024-06-10 12:52 | External Medical Summary | Continuity Of Care Document ---
Author Name Unknown Address [address] [place] [address] Organization [facility] ( ) Care Team Providers Care Client Service Executive Name Role Phone Verónica Benavides Primary Care Provider [phone] Allergies Allergy Reaction Start Date End Date [...] Z95.0 Presence of cardiac pacemaker 04/28/2024 Active VITAL SIGNS Date Time Diastolic blood pressure Systolic blood pressure Body height Body weight Temperature SpO2 Blood Sugar Pulse Respirations 05345 904 35652 0 68.00 mm[Hg] - Sitting 116.00 mm[Hg] - Sitting 66 NI 235.00 NI 98.20 Ear 92.00 % 85.00/ min 18.00/min 30228 904 08219 7 66 NI 83701 904 42852 9 235.00 NI 57755 905 24970 5 94319 905 61713 2 05383 905 24083 3 59.00 mm[Hg] - Sitting 121.00 mm[Hg] - Sitting 98.40 Oral 92.00 % 74.00/ min 20.00/min 50512 906 15705 2 59.00 mm[Hg] - Sitting 121.00 mm[Hg] - Sitting 98.40 Ear 74.00/ min 20.00/min 66666 906 70514 8 23943 907 63462 0 58.00 mm[Hg] - Sitting 106.00 mm[Hg] - Sitting 97.90 Ear 92.00 % 66.00/ min 18.00/min 04981 910 04102 0 74.00 mm[Hg] - Sitting 114.00 mm[Hg] - Sitting 97.60 Ear 94.00 % 65.00/ min 18.00/min 74466 911 61073 1 98.20 Ear 69706 911 61506 6 97.50 Ear 95475 911 30951 9 55.00 mm[Hg] - Sitting 94.00 mm[Hg] - Sitting 98.30 Ear 94.00 % 69.00/ min 18.00/min 65321 911 84092 7 97.40 Ear 66698 912 24391 3 98.20 Ear 49086 912 48770 8 75.00 mm[Hg] - Sitting 117.00 mm[Hg] - Sitting 98.90 Ear 97.00 % 83.00/ min 16.00/min Immunizations Vaccine Date Status COVID-19 10/02/2020 Completed COVID-19 10/23/2020 Completed COVID-19 08/29/2021 Completed COVID-19 08/02/2022 Completed COVID-19 08/04/2023 Completed (PPSV23)Pneumococcal 05/25/2008 Completed TDaP 11/15/2013 Completed
--- OUTSIDE RECORDS SUMMARY | 2024-06-10 12:52 | External Medical Summary | Continuity Of Care Document ---
Author Name Unknown Address [address] [place] [address] Organization [facility] ( ) Care Team Providers Care General Service Technician Name Role Phone Verónica Benavides Primary Care Provider [phone] Allergies Allergy Reaction Start Date End Date [...] weight Temperature SpO2 Blood Sugar Pulse Respirations 64804 904 67461 0 68.00 mm[Hg] - Sitting 116.00 mm[Hg] - Sitting 66 NI 235.00 NI 98.20 Ear 92.00 % 85.00/ min 18.00/min 27750 904 66035 7 66 NI 04084 904 29109 9 235.00 NI 15260 905 16870 5 45997 905 08333 2 92230 905 85671 3 59.00 mm[Hg] - Sitting 121.00 mm[Hg] - Sitting 98.40 Oral 92.00 % 74.00/ min 20.00/min 83746 906 12166 2 59.00 mm[Hg] - Sitting 121.00 mm[Hg] - Sitting 98.40 Ear 74.00/ min 20.00/min 17459 906 46405 8 69864 907 48522 0 58.00 mm[Hg] - Sitting 106.00 mm[Hg] - Sitting 97.90 Ear 92.00 % 66.00/ min 18.00/min 33264 910 81120 0 74.00 mm[Hg] - Sitting 114.00 mm[Hg] - Sitting 97.60 Ear 94.00 % 65.00/ min 18.00/min 81792 911 63073 1 98.20 Ear 63284 911 42178 6 97.50 Ear 79563 911 00337 9 55.00 mm[Hg] - Sitting 94.00 mm[Hg] - Sitting 98.30 Ear 94.00 % 69.00/ min 18.00/min 18318 911 60527 7 97.40 Ear 04147 912 51107 3 98.20 Ear 09091 912 88316 8 75.00 mm[Hg] - Sitting 117.00 mm[Hg] - Sitting 98.90 Ear 97.00 % 83.00/ min 16.00/min 18592 913 77211 6 97.40 Oral 28404 913 11486 6 234.00 NI 90072 913 25334 1 97.10 Oral 50076 914 07285 6 97.10 Oral 45526 914 63361 0 74.00 mm[Hg] - Sitting 124.00 mm[Hg] - Sitting 97.10 Oral 92.00 % 63.00/ min 20.00/min Immunizations Vaccine Date Status COVID-19 10/02/2020 Completed COVID-19 10/23/2020 Completed COVID-19 08/29/2021 Completed COVID-19 08/02/2022 Completed COVID-19 08/04/2023 Completed (PPSV23)Pneumococcal 05/25/2008 Completed (PCV20)Pneumococcal 05/03/2024 Completed TDaP 11/15/2013 Completed
--- OUTSIDE RECORDS SUMMARY | 2024-06-10 12:52 | External Medical Summary | Summary of Care ---
Author Name Unknown Organization [facility] Address [address] [place] [address] Phone [phone] Care Team Providers Care Cancer Genetic Counselor Name Role Phone Verónica Benavides MD Primary Care Provide r Encounter Details Date Type Department Care Team (Late st Contact Info) Description 05/06/2024 Orders Only Lab Mobile Phlebotomy [facility] [address] ([employer]) [place] [address] Verónica Benavides MD [address] [place] [address] [place] [address] Anemia*; STEVE (acute kidney injury) ([facility]) Allergies Active Allergy Reactions Criticality Noted Date [...] mouth in the morning. 08/08/2021 Active Nystatin 292151 UNIT/GM External Powder (Nystop)Indications: Lydia rash of [...] Tablet 3 07/08/2023 Active OneTouch Delica Plus [id number] :Type 2 diabetes mellitus with hemoglobin A1c goal of less than 8.0% ([facility]) Test up to two times daily or as directed by [facility] pharmacist 200 Each 3 07/11/2023 Active [...] mRNA, LNP-s, No Pre serve, 2-Dose Series ([place]) 08/29/2021,10/23/2020,10/02/2020 COVID-19, MRNA-LNP, 23-24, P F, 30 [...] Care Team (Late st Contact Info) Description 05/07/2024 5:00 AM EDT Laboratory Lab Mobile Phlebotomy [facility] [address] [place] [address] [place] [address] 05/13/2024 11:30 AM EDT Scheduled Telephone [facility], [facility] [address] [facility] [place] [address] [facility] [address] [place] [address] 05/14/2024 7:00 AM EDT Laboratory Lab Mobile Phlebotomy [facility] [address] [place] [address] [facility] Mobile Home Draw [address] [place] [address] 05/24/2024 8:30 AM EDT Home Visit [facility], [facility] [address] [facility] [place] [address] Destiny Schultz, POPPY 132 [facility] [place] [address] 10/01/2024 1:00 PM EST Telemedicine Family Medicine [address] [place] [phone] Kusum Jones CRNP [address] [place] [address] [place] [address] 10/13/2024 11:30 AM EST Telemedicine Urology, [facility] 132 [facility] [place] [address] Chandler Pena MD [address] [place] [address] 11/24/2024 1:40 PM EDT Office Visit Dermatology [address] [place] [address] Sheryl Pena PA-C [address] [place] [address] [place] [address] 04/18/2025 1:20 PM EDT Telemedicine Family [address] [place] [phone] Verónica Benavides MD [address] [place] [address] [place] [address] Scheduled Orders Name Type Priority Associated Diagnoses Orde r Schedule CBC WITH WBC DIFFERENTIAL Lab Routine Anemia STEVE (acute kidney injury) ([facility]) Expected: 05/06/2024, Expires: 05/06/2025 BASIC METABOLIC PANEL Lab Routine Anemia STEVE (acute kidney injury) ([facility]) Expected: 05/06/2024, Expires: 05/06/2025 FERRITIN Lab Routine Anemia STEVE (acute kidney injury) ([facility]) Expected: 05/06/2024, Expires: 05/06/2025 FOLIC ACID Lab Routine Anemia STEVE (acute kidney injury) ([facility]) Expected: 05/06/2024, Expires: 05/06/2025 IRON SCREEN, INCLUDING TIBC Lab Routine Anemia STEVE (acute kidney injury) ([facility]) Expected: 05/06/2024, Expires: 05/06/2025 VITAMIN B12 Lab Routine Anemia STEVE (acute kidney injury) (HCC) Expected: 05/06/2024, Expires: 05/06/2025 Health Maintenance Due Date Last Done Comments [...] Additional history exists CKD HGB USE SMARTSET 92331 05/05/202505/05, 04/30/2024, 04/30/2024, Additional history exists CKD PHOS USE SMARTSET 29349 05/05/202504/25, 04/30/2024, 04/02/2024, Additional history exists Pneumococcal [...] as of this encounter Visit Diagnoses Diagnosis Anemia- Primary Anemia, unspecified STEVE (acute kidney injury) (HCC) Acute kidney failure, unspecified documented in this encounter Advance Directives Documents on File Type Date Recorded Patient Activities Coordinator Expl 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 Communication Josselyn Judd Adult Child Health Care Power of Attor nathalie Care Teams Cancer Genetic Counselor Relationship Specialty Start Date End Date Verónica Benavides MD [address] [place] [address] [place] [address] PCP - General Family Medicine 09/16/14 documented as of this encounter
--- OUTSIDE RECORDS SUMMARY | 2024-06-10 12:52 | External Medical Summary ---
Author Name Unknown Address Unknown Organization K01:[facility] [place] [address] [place] [address] Laboratory Report Ordering Provider Test Date Status APOLINAR ARMANDO 05/07/2024 05:35:00 Final Observation Date Value Abnormality Reference (Units ) Status Vitamin B12 05/07/2024 05:35:00 >2000 Above high normal 232-1245 (pg/mL) Final Performing Location LABORATORY [facility] - [address] [place] [address]
--- OUTSIDE RECORDS SUMMARY | 2024-06-10 12:52 | External Medical Summary | Continuity Of Care Document ---
Author Name Unknown Address [address] [place] [address] Organization [facility] ( ) Care Team Providers Care Business Unit Manager Name Role Phone Verónica Benavides Primary Care Provider [phone] Allergies Allergy Reaction Start Date End Date [...] abnormalities of gait and mobility 2023 Active M17.9 Osteoarthritis of knee, unspecified 04/28/2024 Active VITAL SIGNS Date Time Diastolic blood pressure Systolic blood pressure Body height Body weight Temperature SpO2 Blood Sugar Pulse Respirations 61010 904 64912 0 68.00 mm[Hg] - Sitting 116.00 mm[Hg] - Sitting 66 NI 235.00 NI 98.20 Ear 92.00 % 85.00/ min 18.00/min 04804 904 26048 7 66 NI 48491 904 74592 9 235.00 NI 08931 905 70587 5 75121 905 24672 2 73599 905 63958 3 59.00 mm[Hg] - Sitting 121.00 mm[Hg] - Sitting 98.40 Oral 92.00 % 74.00/ min 20.00/min 52201 906 65213 2 59.00 mm[Hg] - Sitting 121.00 mm[Hg] - Sitting 98.40 Ear 74.00/ min 20.00/min 57236 906 89289 8 94723 907 87415 0 58.00 mm[Hg] - Sitting 106.00 mm[Hg] - Sitting 97.90 Ear 92.00 % 66.00/ min 18.00/min 18764 910 88478 0 74.00 mm[Hg] - Sitting 114.00 mm[Hg] - Sitting 97.60 Ear 94.00 % 65.00/ min 18.00/min 94604 911 09336 1 98.20 Ear 12353 911 69268 6 97.50 Ear 03649 911 16302 9 55.00 mm[Hg] - Sitting 94.00 mm[Hg] - Sitting 98.30 Ear 94.00 % 69.00/ min 18.00/min 94045 911 39634 7 97.40 Ear 49857 912 52590 3 98.20 Ear 23085 912 05495 8 75.00 mm[Hg] - Sitting 117.00 mm[Hg] - Sitting 98.90 Ear 97.00 % 83.00/ min 16.00/min 60663 913 74268 6 97.40 Oral 20907 913 86673 6 234.00 NI 46533 913 89558 1 97.10 Oral 46608 914 55183 6 97.10 Oral 09361 914 88475 0 74.00 mm[Hg] - Sitting 124.00 mm[Hg] - Sitting 97.10 Oral 92.00 % 63.00/ min 20.00/min Immunizations Vaccine Date Status COVID-19 10/02/2020 Completed COVID-19 10/23/2020 Completed COVID-19 08/29/2021 Completed COVID-19 08/02/2022 Completed COVID-19 08/04/2023 Completed (PPSV23)Pneumococcal 05/25/2008 Completed (PCV20)Pneumococcal 05/03/2024 Completed TDaP 11/15/2013 Completed
--- OUTSIDE RECORDS SUMMARY | 2024-06-10 12:52 | External Medical Summary | Continuity Of Care Document ---
Author Name Unknown Address [address] [place] [address] Organization [facility] ( ) Care Team Providers Care Bowling Ball Grader Name Role Phone Verónica Benavides Primary Care Provider [phone] Allergies Allergy Reaction Start Date End Date [...] weight Temperature SpO2 Blood Sugar Pulse Respirations 04874 904 39238 0 68.00 mm[Hg] - Sitting 116.00 mm[Hg] - Sitting 66 NI 235.00 NI 98.20 Ear 92.00 % 85.00/ min 18.00/min 91872 904 36344 7 66 NI 76410 904 63084 9 235.00 NI 18213 905 56892 5 44275 905 58934 2 95051 905 86683 3 59.00 mm[Hg] - Sitting 121.00 mm[Hg] - Sitting 98.40 Oral 92.00 % 74.00/ min 20.00/min 78020 906 81767 2 59.00 mm[Hg] - Sitting 121.00 mm[Hg] - Sitting 98.40 Ear 74.00/ min 20.00/min 77826 906 30660 8 50869 907 64967 0 58.00 mm[Hg] - Sitting 106.00 mm[Hg] - Sitting 97.90 Ear 92.00 % 66.00/ min 18.00/min 20746 910 81601 0 74.00 mm[Hg] - Sitting 114.00 mm[Hg] - Sitting 97.60 Ear 94.00 % 65.00/ min 18.00/min 80144 911 90619 1 98.20 Ear 22047 911 76969 6 97.50 Ear 70492 911 19638 9 55.00 mm[Hg] - Sitting 94.00 mm[Hg] - Sitting 98.30 Ear 94.00 % 69.00/ min 18.00/min 81977 911 51151 7 97.40 Ear 38730 912 55690 3 98.20 Ear 40163 912 05045 8 75.00 mm[Hg] - Sitting 117.00 mm[Hg] - Sitting 98.90 Ear 97.00 % 83.00/ min 16.00/min 10542 913 63901 6 97.40 Oral 65997 913 65973 6 234.00 NI 32471 913 80509 1 97.10 Oral 37546 914 87471 6 97.10 Oral 80839 914 18853 0 74.00 mm[Hg] - Sitting 124.00 mm[Hg] - Sitting 97.10 Oral 92.00 % 63.00/ min 20.00/min Immunizations Vaccine Date Status COVID-19 10/02/2020 Completed COVID-19 10/23/2020 Completed COVID-19 08/29/2021 Completed COVID-19 08/02/2022 Completed COVID-19 08/04/2023 Completed (PPSV23)Pneumococcal 05/25/2008 Completed (PCV20)Pneumococcal 05/03/2024 Completed TDaP 11/15/2013 Completed
--- OUTSIDE RECORDS SUMMARY | 2024-06-10 12:53 | External Medical Summary | Summary of Care ---
Author Name Unknown Organization [facility] Address [address] [place] [address] Phone [phone] Care Team Providers Care Seismograph Operator Name Role Phone Verónica Benavides MD Primary Care Provide r Reason for Visit * Reason Onset Date Comments Skilled Visit 05/03/2024 Encounter Details Date Type Department Care Team (Latest Contact Info) Description 05/03/2024 9:00 AM EDT Half-Way Visit [facility] [address] [place] [address] Suad Santos PA-C [address] [place] [address] Ambulatory dysfunction*; Left knee pain, unspecified chronicity; Hip pain, left; Urinary tract infection due to Proteus; 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); Type 2 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 disease, without long-term current use of insulin ([facility]); SCC (squamous cell carcinoma), face; Edema, unspecified type; Monilial rash Allergies Active Allergy Reactions Criticality Noted Date Comments Adhesive Tape Medium 01/30/2022 Ibuprofen Hives 01/13/2012 Aspirin Hives,Rash 09/15/2000 Sulfamethoxazole-Trimeth oprim Nausea/vomiting,Othe r (Please comment) 10/27/2020 Dizziness Ciprofloxacin Hcl 06/16/2019 Hoarse, dizzy,disoriented Morphine 09/21/2021 Blacked out Penicillins Hives,Rash 09/15/2000 Prednisone 12/30/2017 Weakness/memory changes/blurred vision documented as of this encounter (statuses as of 05/03/2024) Medications Medication Sig Dispensed Refills Start Date [...] mouth in the morning. 08/08/2021 Active Nystatin 377739 UNIT/GM External Powder (Nystop)Indications: Lydia rash of [...] Tablet 3 07/08/2023 Active OneTouch Delica Plus [id number] :Type 2 diabetes mellitus with hemoglobin A1c [...] XL)Indications:Non-i schemic cardiomyopathy (HCC),Coronary artery disease involving qaw[place]angin coronary artery of q[place]in heart without angina pectoris,HTN, goal below 140/90 [...] directed by clinician. 5 Tablet 04/19/2024 Active Torsemide 20 MG Oral Tablet (Demadex)Indications :Heart failure, systolic, due to idiopathic cardiomyopathy (HCC) take THREE tablets BY MOUTH EVERY MORNING, TWO tablets IN afternoon - additional tablet IN afternoon ONLY if directed by healthcare provider FOR weight gain of THREE lbs OR more 180 Tablet 3 04/23/2024 Active Nitrofurantoin Monohyd Macro 100 MG Oral Capsule (Macrobid)Indication s:Recurrent UTI (urinary tract infection) Take 1 Capsule by mouth every night at bedtime. 90 Capsule 1 04/23/2024 Active documented as of this encounter (statuses as of 05/03/2024) Active Problems Problem Noted Date Diagnosed Date Full code status 05/03/2024 Recurrent UTI (urinary [...] Continue synthroid Coronary artery disease invo lving qawalangin coronary artery of qawalangin heart without angina pectoris 07/03/2012 Overview: 60% [...] as of this encounter (statuses as of 05/03/2024) Resolved Problems Problem Noted Date Diagnosed Date [...] as of this encounter (statuses as of 05/03/2024) Immunizations Name Administration Dates Next Due COVID-19 mRNA, LNP-s, No Pre serve, 2-Dose Series ([employer]) 08/29/2021,10/23/2020,10/02/2020 COVID-19, MRNA-LNP, 23-24, P F, 30 MCG/0.3 mL, 12 YRS AND ABOVE, IM ([facility]) 08/04/2023 Covid-19, Mrna, Lnp-s, Pf, B ivalent, 30 Mcg, IM, 12 yrs and above ([facility]) 08/02/2022 Pneumococcal Conjugate Vacc, 13 Valent (Prevnar) [...] Progress Notes * Suad Santos PA-C - 05/03/2024 2:22 PM EDT Name: Regla Castano Date of :1935 TRANSITION EVENT: Type: Skilled visit Date: May 03 Code Status: Full Code This note pertains to care provided at [facility]. Please see facility medical record for original note. This note is not to be edited or addended in [employer]. Editing or addending needs to occur in the facilities medical record. Subjective: Regla Castano is a 88 year old female. Patient being seen for skilled visit Chief Complaint Patient presents with Skilled Visit HPI: pt is here for rehabilitation following [facility] admission due to ambulatory dysfunction, weakness, left hip and knee pain and UTI due to proteus. Pt has been stable. Eating, drinking and sleeping well. .participating in Therapy. Having BMs and voiding ok. No hip or knee pain in SNF. Daughter had some concerns she would like addressed: Pt has monilial rash which pt gets off and on frequently. Currently receiving nystatin powder. Daughter would like changed to Clotrimazole cream with absorbant dressing in skin folds which helps pt the best. Daughter uses a lymphedema pump at home for her edema. Daughter would like to bring it in to use inSNF. Pt has SCC right cheek which is being treated topically by dermatology. Daughter will bring in dermatology recommendations for care of this lesion. Antonyer states pt has been taking Colace 300mg BID at home. Labs on order for Friday Patient Active Problem List Diagnosis GENERAL OSTEOARTHROSIS Hypothyroidism DYSLIPIDEMIA, GOAL LDL BELOW 100 Aspirin allergy LBBB (left bundle branch block) First degree atrioventricular block Coronary artery disease involving qawalangin coronary artery of qaw[place]angin heart without angina pectoris ACEI/ARB contraindicated Type 2 diabetes mellitus with hemoglobin A1c goal of less than 8.0% ([facility]) Non-ischemic cardiomyopathy ([facility]) Heart failure, systolic, due to idiopathic cardiomyopathy ([facility]) Aortic valve stenosis 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, without long-term current use of insulin ([facility]) Lymphedema of both lower extremities Benign paroxysmal vertigo of both ears Gastroesophageal reflux disease without esophagitis 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 History of recurrent UTI (urinary tract infection) Trochanteric bursitis of right hip Ventral hernia without obstruction or gangrene Impaired mobility and ADLs Bilateral impacted cerumen Transient confusion Postmenopausal atrophic vaginitis Recurrent UTI (urinary tract infection) Past Medical History: Diagnosis Date ACEI/ARB contraindicated [...] Needs: Not on file Social Connections: Unknown (05/03/2024) Social Connections How often do you feel [...] list as this cannot be edited in [facility]. Review of Systems: Constitutional ROS: No change in weight, + weakness, +fatigue and No fevers, sweats, or chills Nose [...] dysphagia Musculoskeletal/Extremities ROS: see HPI Skin/Integumentary ROS: see HPI Neurologic ROS: No headaches and No seizures Psychiatric ROS: No depression, No anxiety and No psychosis Sleep: No sleep disorders OBJECTIVE: PHYSICALEXAM: I reviewed the most recent facilities vitals. General: alert, no distress, well nourished and well developed Head: SCC right cheek with fibrous cap noted Eye Exam: Conjunctiva are pink and non-injected, [...] tenderness, lungs clear to auscultation Abdomen: abdomen soft,obese, non-tender, normal bowel sounds and no masses or organomegaly Extremities: 2+edema, no clubbing, no cyanosis Neuro Exam: alert with fluent speech, no focal motor/sensory deficits Skin: skin color, texture, turgor are normal, erythematous wet maculopapular rash abdominal folds Musculoskeletal: moves all extremities with good strength ASSESSMENT: Ambulatory dysfunction (Primary) Continue with Therapy as directed Left knee pain, unspecified chronicity Stable currently Continue Tylenol prn as directed Hip pain, left Stable currently Continue Tylenol prn as directed Urinary tract infection due to Proteus Comleted antibitoic course 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 Stable Continue Trulicity 0.75mg weekly SCC (squamous cell carcinoma), face Daughter will bring in dermatology instructions for care Edema, unspecified type Will consult lymphedema therapy for recommendations Monilial rash Change Nystatin powder to Clotrimazole cream BID with absorbant dressings as directed PLAN: Continue present medication(s):as ordered. [facility] Home Treatment Given: Lab Draw CBC, CMP, Magnesium next lab draw Electronically signed by: Suad Santos PA-C Over 45 minutes were spent in this visit more than half the time was spent counselling or coordinating care. documented in this encounter Plan of Treatment Upcoming Encounters Date Type Department Care Team (Late st Contact Info) Description 05/06/2024 10:30 AM EDT Scheduled Telephone [facility], [facility] [address] [facility] [place] [address] Baylee Sandhu, [address] [facility] [place] [address] 05/14/2024 7:00 AM EDT Laboratory Lab Mobile Phlebotomy [facility] [address] [facility] [place] [address] [facility], [facility] Mobile Home Draw [address] [place] [address] 05/24/2024 8:30 AM EDT Home Visit [facility], [facility] [address] [facility] [place] [address] Destiny Schultz, POPPY [address] [place] [address] 10/01/2024 1:00 PM EST Telemedicine Family Medicine [address] [place] [phone] Kusum Jones CRNP [address] [place] [address] [place] [address] 10/13/2024 11:30 AM EST [facility]medicine [facility], [facility] [place] [address] Chandler Pena MD [address] [place] [address] 11/24/2024 1:40 PM EDT Office Visit Dermatology [address] [place] [address] Sheryl Pena PA-C [address] [place] [address] [place] [address] 04/18/2025 1:20 PM EDT Telemedicine Family Medicine [address] [place] [phone] Verónica Benavides MD [address] [place] [address] [place] [address] Health Maintenance Due Date Last Done Comments [...] exists COVID-19 Vaccine ( season) 2024 08/04/2023, 08/02/2022, 08/02/2022, Additional history exists Influenza Vaccine (FLU shot) (#1) 2024 06/20/2022, 06/20/2022, 06/29/2021, Additional history exists HbA1c 10/03/2024 04/02/2024, 01/24, 11/01/2022, Additional history exists TSH 04/02/2025 04/02/2024, 08/2022, 02/24/2023, Additional history exists Albumin/Creatinine Ratio 04/19/2025 024, 02/07/2023, 01/18/2022, Additional history exists CKD HGB USE SMARTSET 36155 04/30/202504/30, 04/30/2024, 04/02/2024, Additional history exists CKD PHOS USE SMARTSET 74960 04/30/2025 090 01/2024, 04/02/2024, 02/07/2023, Additional history exists Pneumococcal Vaccine: 65+ Years [...] encounter Visit Diagnoses Diagnosis Ambulatory dysfunction- Primary Left knee pain, unspecified chronicity Hip pain, left Pain in joint, pelvic region and thigh Urinary tract infection due to Proteus Urinary tract infection, site not specified 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) Type 2 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 disease, without long-term current use of insulin (HCC) SCC (squamous cell carcinoma), face Squamous cell carcinoma of skin of other and unspecified parts of face Edema, unspecified type Monilial rash Candidiasis of skin and nails documented in this encounter Advance Directives Documents on File Type Date Recorded Patient Solid Die Cutter Expl anation Advance Directives and Living Will 08/10/2021 ADVANCE DIRECTIVE / LIVING WILL LIVING WILL Healthcare Agents on File Name Relationship Healthcare Agent [facility] Communication Josselyn Judd Adult [facility] Health Care Power of Attor nathalie Care Teams Seismograph Operator Relationship Specialty Start Date End Date Verónica Benavides MD [address] [place] [address] [place] [address] PCP - General Family Medicine 09/16/14 documented as of this encounter
--- OUTSIDE RECORDS SUMMARY | 2024-06-10 12:53 | External Medical Summary ---
Author Name Unknown Address Unknown Organization K0G:[facility] [address] [place] [address] Laboratory Report Ordering Provider Test Date Status APOLINAR ARMANDO 05/05/2024 05:38:00 Final Observation Date Value Abnormality Reference (Units ) Status BUN 05/05/2024 05:38:00 33 Above high normal 6-20 (mg/dL) Final Creatinine 05/05/2024 05:38:00 1.5 Above high normal 0.5-1.0 (mg/dL) Final Glomerular filtration rate/1.73 sq M.predicted [Volume Rate/Area] in Serum, Plasma or Blood by Creatinine-based formula (CKD-EPI) 05/05/2024 05:38:00 33 Below low normal >=60 (mL/min) Final eGFR is calculated based on the CKD-EPI 2020 equation. Sodium 05/05/2024 05:38:00 142 135-146 (m mol/L) Final Potassium 05/05/2024 05:38:00 4.3 3.5-5.1 (m mol/L) Final Cl 05/05/2024 05:38:00 103 98-107 (mm ol/L) Final CO2 05/05/2024 05:38:00 30 22-32 (mmo l/L) Final Anion gap 05/05/2024 05:38:00 9 7-15 (mmol /L) Final Glucose 05/05/2024 05:38:00 189 Above high normal 70 -120 (mg/dL) Final Albumin 05/05/2024 05:38:00 3.7 Below low normal 3.8 -5.0 (g/dL) Final AST (Aspartate aminotransferase) 05/05/2024 05:38:00 12 10-35 (U/L) Fin al Alk Phos 05/05/2024 05:38:00 75 35-130 (U/ L) Final Bilirubin, Total 05/05/2024 05:38:00 0.4 <=1 .2 (mg/dL) Final Calcium 05/05/2024 05:38:00 9.1 8.4-10.2 ( mg/dL) Final Protein 05/05/2024 05:38:00 6.4 6.0-8.3 (g /dL) Final ALT (Alanine aminotransferase) 05/05/2024 05:38:00 11 10-35 (U/L) Nelson bonilla Performing Location [facility] [address] [place] [address]
--- OUTSIDE RECORDS SUMMARY | 2024-06-10 12:53 | External Medical Summary ---
Author Name Unknown Address Unknown Organization K01:[facility] [address] [place] [address] Laboratory Report Ordering Provider Test Date Status APOLINAR ARMANDO 05/05/2024 05:38:00 Final Observation Date Value Abnormality Reference (Units ) Status Phosphate 05/05/2024 05:38:00 4.0 2.5-4.8 (m g/dL) Final Performing Location [facility] - [address] [place] [address]
--- OUTSIDE RECORDS SUMMARY | 2024-06-10 12:53 | External Medical Summary | Summary of Care ---
Author Name Unknown Organization [facility] Address [address] [place] [address] Phone [phone] Care Team Providers Care Showroom Executive Director Name Role Phone Verónica Benavides MD Primary Care Provide r Encounter Details Date Type Department Care Team (Late st Contact Info) Description 05/05/2024 Population Health External Data Unspecified Department Allergies [...] mouth in the morning. 08/08/2021 Active Nystatin 826626 UNIT/GM External Powder (Nystop)Indications: Lydia rash of [...] Tablet 3 07/08/2023 Active OneTouch Delica Plus [id number] :Type 2 diabetes mellitus with hemoglobin A1c [...] schemic cardiomyopathy (HCC),Coronary artery disease involving [place] coronary artery of [place] heart without angina pectoris,HTN, goal below [...] synthroid Coronary artery disease invo lving [place] coronary artery of [place] heart without angina pectoris 07/03/2012 Overview: [...] mRNA, LNP-s, No Pre serve, 2-Dose Series ([facility]) 08/29/2021,10/23/2020,10/02/2020 COVID-19, MRNA-LNP, 23-24, P F, 30 MCG/0.3 mL, 12 YRS AND ABOVE, IM ([facility]) 08/04/2023 Covid-19, Mrna, Lnp-s, Pf, B ivalent, 30 Mcg, IM, 12 yrs and above ([facility]) 08/02/2022 Pneumococcal Conjugate Vacc, 13 Valent (Prevnar) [...] Care Team (Late st Contact Info) Description 05/05/2024 8:30 AM EDT M[facility] Visit [facility] [address] [facility] [place] [address] Verónica Benavides MD [address] [place] [address] [place] [address] 05/06/2024 10:30 AM EDT Scheduled Telephone [facility], [facility] [address] [facility] [place] [address] Baylee Sandhu, [address] [place] [address] 05/14/2024 7:00 AM EDT Laboratory Lab Mobile Phlebotomy [facility] [address] [place] [address] [facility], [facility] Mobile Home Draw [address] [place] [address] 05/24/2024 8:30 AM EDT Home Visit [facility], [facility] [address] [place] [address] Destiny Schultz, POPPY [address] [facility] [place] [address] 10/01/2024 1:00 PM EST Telemedicine Family Medicine [address] [place] [phone] Kusum Jones CRNP [address] [place] [address] [place] [address] 10/13/2024 11:30 AM EST Telemedicine Urology, [facility] [address] [place] [address] Chandler Pena MD [address] [place] [address] 11/24/2024 1:40 PM EDT Office Visit Dermatology [address] [place] [address] Sheryl Pena PA-C [address] [place] [address] [place] [address] 04/18/2025 1:20 PM EDT Telemedicine Family Medicine [address] [phone] Verónica Benavides MD [address] [place] [address] [place] [address] Health Maintenance Due Date Last Done Comments [...] Additional history exists CKD HGB USE SMARTSET 76629 04/30/202504/30, 04/30/2024, 04/02/2024, Additional history exists CKD PHOS USE SMARTSET 05228 04/30/2025 09/0 01/2024, 04/02/2024, 02/07/2023, Additional history exists Pneumococcal [...] Documents on File Type Date Recorded Patient Patient Support Specialist Expl anation Advance Directives and Living Will 08/10/2021 ADVANCE DIRECTIVE / LIVING WILL LIVING WILL Healthcare Agents on File Name Relationship Healthcare Agent Relationshi p Communication Josselyn Judd Adult Child Health Care Power of Attor nathalie Care Teams Showroom Executive Director Relationship Specialty Start Date End Date Verónica Benavides MD [address] [place] [address] [place] [address] PCP - General Family Medicine 09/16/14 documented as of this encounter
--- OUTSIDE RECORDS SUMMARY | 2024-06-10 12:53 | External Medical Summary | Summary of Care ---
Author Name Unknown Organization [facility] Address [address] [place] [address] Phone [phone] Care Team Providers Care Manager Plumbing Name Role Phone Verónica Benavides MD Primary Care Provide r Reason for Visit * Reason Onset Date Comments [facility]: Maintenance 04/30/2024 Encounter Details Date Type Department Care Team (Late st Contact Info) Description 04/30/2024 10:00 AM EDT Scheduled Telephone [facility], [facility] 132 [facility] [place] [address] Coordinator, [facility] 132 [facility] [place] [address] Allergies Active Allergy Reactions Criticality Noted Date Comments Adhesive Tape Medium 01/30/2022 Ibuprofen Hives 01/13/2012 Aspirin Hives,Rash 09/15/2000 Sulfamethoxazole-Trimeth oprim Nausea/vomiting,Othe r (Please comment) 10/27/2020 Dizziness Ciprofloxacin Hcl 06/16/2019 Hoarse, dizzy,disoriented Morphine 09/21/2021 Blacked out Penicillins Hives,Rash 09/15/2000 Prednisone 12/30/2017 Weakness/memory changes/blurred vision documented as of this encounter (statuses as of 04/30/2024) Medications Medication Sig Dispensed Refills Start Date [...] mouth in the morning. 08/08/2021 Active Nystatin 890582 UNIT/GM External Powder (Nystop)Indications: Lydia rash of [...] long-term current use of insulin ([facility]),Type 2 diabetes mellitus with hemoglobin A1c [...] Tablet 3 07/08/2023 Active OneTouch Delica Plus [id number] :Type 2 diabetes mellitus with hemoglobin A1c goal of less than 8.0% ([facility]) Test up to two times daily or as directed by [facility] pharmacist 200 Each 3 07/11/2023 Active Estrogens [...] XL)Indications:Non-i schemic cardiomyopathy (HCC),Coronary artery disease involving igiugig coronary artery of igiugig heart without angina pectoris,HTN, goal below 140/90 [...] OR more 180 Tablet 3 04/23/2024 Active Cefdinir 300 MG Oral Capsule (Omnicef) Take 1 Capsule by mouth in the morning and 1 Capsule before bedtime. Do all this for 7 days. For 7 days. 14 Capsule 04/23/2024 Active Nitrofurantoin Monohyd Macro 100 MG Oral Capsule (Macrobid)Indication s:Recurrent UTI (urinary tract infection) Take 1 Capsule by mouth every night at bedtime. 90 Capsule 1 04/23/2024 Active documented as of this encounter (statuses as of 04/30/2024) Active Problems Problem Noted Date Diagnosed Date [...] Continue synthroid Coronary artery disease invo lving igiugig coronary artery of igiugig heart without angina pectoris 07/03/2012 Overview: 60% [...] as of this encounter (statuses as of 04/30/2024) Resolved Problems Problem Noted Date Diagnosed Date [...] as of this encounter (statuses as of 04/30/2024) Immunizations Name Administration Dates Next Due COVID-19 mRNA, LNP-s, No Pre serve, 2-Dose Series ([employer]) 08/29/2021,10/23/2020,10/02/2020 COVID-19, MRNA-LNP, 23-24, P F, 30 MCG/0.3 mL, 12 YRS AND ABOVE, IM ([facility]) 08/04/2023 Covid-19, Mrna, Lnp-s, Pf, B ivalent, 30 Mcg, IM, 12 yrs and above ([employer]) 08/02/2022 Pneumococcal Conjugate Vacc, 13 Valent (Prevnar) [...] Telephone Encounter - Janiya Cárdenas RN - 04/30/2024 10:22 AM EDT FC call scheduled for UTI follow up . Pt is currently inpatient since 04/28 at [facility]. Per dtr Josselyn, pt will be at SNF for at a min of 2 weeks. documented in this encounter Plan of Treatment Upcoming Encounters Date Type Department Care Team (Late st Contact Info) Description 05/06/2024 10:30 AM EDT Scheduled Telephone [facility], [place] [address] [facility] [address] Baylee Sandhu [address] [place] [address] 05/14/2024 7:00 AM EDT Laboratory Lab Mobile [facility] [facility] [address] [facility] [facility] [address] 05/24/2024 8:30 AM EDT Home Visit [facility], [facility] 132 [facility] [place] [address] Destiny Schultz RN 132 [facility] [place] [address] 10/01/2024 1:00 PM EST Telemedicine Family Medicine [address] [place] [phone] Kusum Jones CRNP [address] [place] [address] [place] [address] 10/13/2024 11:30 AM EST Telemedicine Urology, [facility] 132 [facility] [place] [address] Chandler Pena MD [address] [place] [address] 11/24/2024 1:40 PM EDT Office Visit Dermatology [address] [place] [address] Sheryl Pena PA-C [address] [place] [address] [place] [address] 04/18/2025 1:20 PM EDT Telemedicine Family Medicine [address] [place] [phone] Verónica Benavides MD [address] [place] [address] [place] [address] Health Maintenance Due Date Last Done Comments [...] 04/02/2024, 01/24, 11/01/2022, Additional history exists CKD PHOS USE SMARTSET 56096 04/02/2025 08/0 04/2024, 02/07/2023, 08/07/2021, Additional history exists TSH 04/02/2025 04/02/2024, 08/0 08/2022, 02/24/2023, Additional history exists Albumin/Creatinine Ratio 04/19/2025 024, 02/07/2023, 01/18/2022, Additional history exists CKD HGB USE SMARTSET 66111 04/30/202504/30, 04/30/2024, 04/02/2024, Additional history exists Pneumococcal Vaccine: [...] Documents on File Type Date Recorded Patient Chief Learning Officer Expl anation Advance Directives and Living Will 08/10/2021 ADVANCE DIRECTIVE / LIVING WILL LIVING WILL Healthcare Agents on File Name Relationship [facility] Josselyn Judd Adult Child Health Care Power of Attor nathalie Care Teams Manager Plumbing Relationship Specialty Start Date End Date Verónica Benavides MD [address] [place] [address] [place] [phone] PCP - General Family Medicine 09/16/14 documented as of this encounter
--- OUTSIDE RECORDS SUMMARY | 2024-06-10 12:53 | External Medical Summary | Summary of Care ---
Author Name Unknown Organization [facility] Address [address] [place] [address] Phone [phone] Care Team Providers Care Applications Sales Consultant Name Role Phone Verónica Benavides MD Primary Care Provide r Reason for Visit * Reason Onset Date Comments Skilled Visit 05/04/2024 Encounter Details Date Type Department Care Team (Latest Contact Info) Description 05/04/2024 8:30 AM EDT Fdc Visit [facility] [address] [place] [address] Suad Santos PA-C [address] [place] [address] Ambulatory dysfunction*; Urinary tract infection due to Proteus; Hypertensive [...] as of this encounter (statuses as of 05/04/2024) Medications Medication Sig Dispensed Refills Start Date [...] mouth in the morning. 08/08/2021 Active Nystatin [id number] UNIT/GM External Powder (Nystop)Indications: Lydia rash of [...] Tablet 3 07/08/2023 Active OneTouch Delica Plus [id number] :Type 2 diabetes mellitus with hemoglobin A1c goal of less than 8.0% ([facility]) Test up to two times daily or as directed by [facility] pharmacist 200 Each 3 07/11/2023 [...] XL)Indications:Non-i schemic cardiomyopathy (HCC),Coronary artery disease involving wyandotte coronary artery of wyandotte heart without angina pectoris,HTN, goal below 140/90 [...] as of this encounter (statuses as of 05/04/2024) Active Problems Problem Noted Date Diagnosed Date [...] Continue synthroid Coronary artery disease invo lving wyandotte coronary artery of wyandotte heart without angina pectoris 07/03/2012 Overview: 60% [...] as of this encounter (statuses as of 05/04/2024) Resolved Problems Problem Noted Date Diagnosed Date [...] as of this encounter (statuses as of 05/04/2024) Immunizations Name Administration Dates Next Due COVID-19 mRNA, LNP-s, No Pre serve, 2-Dose Series ([employer]) 08/29/2021,10/23/2020,10/02/2020 COVID-19, MRNA-LNP, 23-24, P F, 30 MCG/0.3 mL, 12 YRS AND ABOVE, IM ([facility]) 08/04/2023 Covid-19, Mrna, Lnp-s, Pf, B ivalent, [...] Progress Notes * Suad Santos PA-C - 05/04/2024 11:44 AM EDT Images from the original note were not included. Name: Regla Castano Date of :1935 TRANSITION EVENT: Type: Skilled visit Date: May 04 Code Status: Full Code This note pertains to care provided at [facility]. Please see facility medical record for original note. This note is not to be edited or addended in [facility]. Editing or addending needs to occur in the facilities medical record. Subjective: Regla Castano is a 88 year old female. Patient being seen for skilled visit Chief Complaint Patient presents with Skilled Visit HPI: pt here for rehabilitation following [facility] admission for ambulatory dysfunction, fall out of bed with acute left knee and hip pain. Hip and knee pain is much better. Tylenol covering the pain. Ptis workng with Therapy for ambulation and conditioning. Coming along slowly. Vital signs stable. Ptis elevating her legs due to lymphedema. Wearing support hose. BMs ok and voiding ok. CBC Results: Results for orders placed or performed in visit on 04/30/24 CBC Result Value Ref Range WBC 8.93 4.00 - 10.80 K/uL RBC 2.29 3.85 - 5.15 M/uL HGB 8.9 (L) 12.0 - 15.3 g/dL HCT 27.3 (L) 36.0 - 45.2 % MCV 119.2 81.5 - 97.5 fL MCH 38.9 27.0 - 34.0 pg MCHC 32.6 32.0 - 36.0 g/dL RDW 14.3 11.5 - 15.5 % PLT 326 140 - 400 K/uL MPV 9.9 6.6 - 11.1 fL Hemoglobin Results: Lab Results Component Value Date/Time HGB 8.9 (L) 04/30/2024 05:31 AM HGB 9.8 (L) 04/02/2024 09:53 AM HGB 12.0 05/26/2023 10:11 AM HGB 12.5 08/04/2020 12:02 PM HGB 11.2 (L) 07/14/2020 12:47 PM HGB 11.6 (L) 07/07/2020 11:05 AM COMPREHENSIVE METABOLIC PANEL Order: [id number] Status: Final result Visible to patient: Yes (seen) Next appt: 05/06/2024 at 10:30 AM in *Primary Care* (Baylee Sandhu CM) Dx: HTN, goal below 140/90; Chronic kidne... 0 Result Notes Component Ref Range & Units 4 d ago BUN 6 - 20 mg/dL 37 High Creatinine 0.5 - 1.0 mg/dL 1.2 High Estimated Glomerular Filtration Rate >=60 mL/min 42 Low Comment: eGFR is calculated based on the CKD-EPI 2020 equation. Sodium 135 - 146 mmol/L 141 Potassium 3.5 - 5.1 mmol/L 4.5 Chloride 98 - 107 mmol/L 103 CO2 22 - 32 mmol/L 29 Anion Gap 7 - 15 mmol/L 9 Glucose 70 - 120 mg/dL 160 High Albumin 3.8 - 5.0 g/dL 3.5 Low AST 10 - 35 U/L 28 Alkaline Phosphatase 35 - 130 U/L 73 Bilirubin, Total <=1.2 mg/dL 0.3 Calcium 8.4 - 10.2 mg/dL 9.2 Protein 6.0 - 8.3 g/dL 6.2 ALT 10 - 35 U/L 24 Resulting Agency [facility] 57-10 Specimen Collected: 04/30/24 05:31 Last Resulted: 04/30/24 08:28 Creatinine Results: Lab Results Component Value Date/Time CREATININE - [facility] 1.2 (H) 04/30/2024 05:31 AM CREATININE - [facility] 0.9 04/02/2024 09:53 AM CREATININE - [facility] 0.9 12/26/2023 08:56 AM CREATININE - [facility] 1.1 (H) 09/13/2020 [...] AM CREATININE-OUTSIDE LAB 0.8 10/12/2015 12:00 AM Potassium Results: Lab Results Component Value Date/Time POTASSIUM - [facility] 4.5 04/30/2024 05:31 AM POTASSIUM - [facility] 4.0 04/02/2024 09:53 AM POTASSIUM - [facility] 4.0 12/26/2023 08:56 AM POTASSIUM - [facility] 4.5 09/13/2020 12:57 PM POTASSIUM - [facility] 4.7 08/09/2020 08:40 AM POTASSIUM - [facility] 4.6 08/04/2020 12:02 PM POTASSIUM-OUTSIDE LAB 4.2 05/31/2018 12:00 AM POTASSIUM-OUTSIDE LAB 4.4 08/26/2016 12:00 AM POTASSIUM-OUTSIDE LAB 3.5 (A) 10/12/2015 12:00 AM Sodium Results: Lab Results Component Value Date/Time SODIUM - [facility] 141 04/30/2024 05:31 AM SODIUM - [facility] 140 04/02/2024 09:53 AM SODIUM - [facility] 139 12/26/2023 08:56 AM SODIUM - [facility] 140 09/13/2020 12:57 PM SODIUM - [facility] 138 08/09/2020 08:40 AM SODIUM - [facility] 136 08/04/2020 12:02 PM Patient Active Problem List Diagnosis GENERAL OSTEOARTHROSIS Hypothyroidism DYSLIPIDEMIA, GOAL LDL BELOW 100 Aspirin allergy LBBB (left bundle branch block) First degree atrioventricular block Coronary artery disease involving wyandotte coronary artery of wyandotte heart without angina pectoris ACEI/ARB contraindicated Type 2 diabetes mellitus with hemoglobin A1c goal of less than 8.0% ([facility]) Non-ischemic cardiomyopathy ([facility]) Heart failure, systolic, due to idiopathic cardiomyopathy ([facility]) Aortic valve stenosis 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, without long-term current use of insulin ([facility]) Lymphedema of both lower extremities Benign paroxysmal vertigo of both ears Gastroesophageal reflux disease without esophagitis Type 2 diabetes mellitus with mild nonproliferative diabetic retinopathy without macular edema, right eye ([facility]) 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 History of recurrent UTI (urinary tract infection) Trochanteric bursitis of right hip Ventral hernia without obstruction or gangrene Impaired mobility and ADLs Bilateral impacted cerumen Transient confusion Postmenopausal atrophic vaginitis Recurrent UTI (urinary tract infection) Full code status Past Medical History: Diagnosis Date ACEI/ARB contraindicated [...] Needs: Not on file Social Connections: Unknown (05/04/2024) Social Connections How often do you feel [...] list as this cannot be edited in [employer]. Review of Systems: Constitutional ROS: No change [...] dysphagia Musculoskeletal/Extremities ROS: see HPI Skin/Integumentary ROS: SCC cheek Neurologic ROS: No headaches and No seizures [...] tenderness, lungs clear to auscultation Abdomen: abdomen softobese, non-tender, normal bowel sounds and no masses or organomegaly Extremities: +lymphedema, no clubbing, no cyanosis Skin: skin color, texture, turgor are normal, SCC Rx on right cheek Musculoskeletal: moves all extremities with good strength ASSESSMENT: Ambulatory dysfunction (Primary) Slowly improving Continue with Tylenol prn and PT/OT as directed Urinary tract infection due to Proteus Completed Cefdinir course 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 No active CHF Continue Torsemide and Aldactone as directed CKD stable PLAN: Reviewed CBC, CMP, Lytes and Continue present medication(s):as ordered. Alf Home Treatment Given: as above Electronically signed by: Suad Santos PA-C Over 35 minutes were spent in this visit more than half the time was spent counselling or coordinating care. documented in this encounter Plan of Treatment Upcoming Encounters Date Type Department Care Team (Late st Contact Info) Description 05/05/2024 8:30 AM EDT Fdc Visit [address] [place] [address] Verónica Benavides MD [address] [place] [address] [place] [address] 05/06/2024 10:30 AM EDT Scheduled Telephone [facility], [facility] [address] [facility] [place] [address] Baylee Sandhu, CM [address] [place] [address] 05/14/2024 7:00 AM EDT Laboratory Lab Mobile Phlebotomy [facility] [address] [facility] [place] [address] [facility], Gml Mobile Home Draw [address] [facility] [place] [address] 05/24/2024 8:30 AM EDT Home Visit [facility], [facility] 132 [facility] [place] [address] Destiny Schultz RN 132 [facility] [place] [address] 10/01/2024 1:00 PM EST Telemedicine Family Medicine [address] [place] [phone] Kusum Jones CRNP [address] [place] [address] [place] [address] 10/13/2024 11:30 AM EST Telemedicine Urology, [facility] [address] [facility] [place] [address] Chandler Pena MD [address] [place] [address] 11/24/2024 1:40 PM EDT Office Visit Dermatology [address] [place] [address] Sheryl Pena PA-C [address] [place] [address] [place] [address] 04/18/2025 1:20 PM EDT Telemedicine Family Medicine [address] [place] [phone] Verónica Benavides MD [address] [place] [address] [place] [phone] Health Maintenance Due Date Last Done Comments [...] Additional history exists CKD HGB USE SMARTSET 23084 04/30/202504/30, 04/30/2024, 04/02/2024, Additional history exists CKD PHOS USE SMARTSET 19081 04/30/2025 09/0 01/2024, 04/02/2024, 02/07/2023, Additional history [...] encounter Visit Diagnoses Diagnosis Ambulatory dysfunction- Primary Urinary tract infection due to Proteus Urinary tract infection, site not specified 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) documented in this encounter Advance Directives Documents on File Type Date Recorded 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
--- OUTSIDE RECORDS SUMMARY | 2024-06-10 12:53 | External Medical Summary | Summary of Care ---
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 1 Active Nystatin 704053 UNIT/GM External Powder (Nystop)Indication s:Lydia rash of [...] TIMES DAILY 400 Strip 1 3 Active Myrbetriq 25 MG Oral Tablet Extended Release 24 Hour (Mirabegron ER) Take 1 Tablet by mouth in the morning. 90 Tablet 3 3 Active OneTouch Delica Plus [id number] ns:Type 2 diabetes mellitus with hemoglobin A1c goal of less than 8.0% ([facility]) Test up to two times daily or as directed by [facility] pharmacist 200 Each 3 3 [...] Health for possible home visit 1 Each 4 [...] x 6 weeks 40 g 4 Active Metoprolol Succinate ER 25 MG Oral Tablet Extended Release 24 Hour (toPROL XL)Indications:Non -ischemic cardiomyopathy (HCC),Coronary artery disease involving osage coronary artery of osage heart without angina pectoris,HTN, goal below 140/90 [...] pain with urination 6 Tablet 4 Active Torsemide 20 MG Oral Tablet (Demadex)Indicatio ns:Heart failure, systolic, due to idiopathic cardiomyopathy (HCC) take THREE tablets BY MOUTH EVERY MORNING, TWO tablets IN afternoon - additional tablet IN afternoon ONLY if directed by healthcare provider FOR weight gain of THREE lbs OR more 180 Tablet 3 4 Active Acetaminophen 325 MG Oral Tablet (Tylenol) Take 2 Tablets by mouth every 4 hours as needed for Fever >38C(100.5F), Pain, Severe, Pain, Moderate or Pain, Mild. 4 Active Stool Softener 100 MG Oral Tablet (Docusate Sodium) Take 3 Tablets by mouth in the morning and 3 Tablets before bedtime. 4 Active STOOL SOFTENER 100 MG PO TABS 3-4 tabs daily as needed Discontinued Acetaminophen (APAP) 325 MG Tablet Take 1 Tablet by mouth every 6 hours as needed. Discontinued(Me dication List Clean Up) Benzonatate 100 MG Oral Capsule Take 1 [...] 3 024 Discontinued(Me dication List Clean Up) Cephalexin 500 MG Oral Capsule Take 1 Capsule by mouth in the morning and 1 Capsule at noon and 1 Capsule before bedtime. Do all this for 10 days. 30 Capsule 4 024 Discontinued(Me dication List Clean Up) Nitrofurantoin Monohyd Macro 100 MG Oral Capsule [...] 4 024 Discontinued(Me dication List Clean Up) Cephalexin 500 MG Oral CapsuleIndications :Cellulitis of [...] 4 024 Discontinued(Me dication List Clean Up) Cephalexin 500 MG Oral Capsule Take 1 Capsule by mouth in the morning and 1 Capsule before bedtime. Do all this for 14 days. 28 Capsule 4 024 Discontinued(Me dication List Clean Up) metOLazone 2.5 MG Oral Tablet (Zaroxolyn) Take one tablet only when directed by clinician. 5 Tablet 4 024 Discontinued(Me dication List Clean Up) Cefdinir 300 MG Oral Capsule (Omnicef) Take 1 Capsule by mouth in the morning and 1 Capsule before bedtime. Do all this for 7 days. For 7 days. 14 Capsule 4 024 Discontinued(Me dication List Clean Up) Nitrofurantoin Monohyd Macro 100 MG Oral Capsule (Macrobid)Indicati ons:Recurrent UTI (urinary tract infection) Take 1 Capsule by mouth every night at bedtime. 90 Capsule 1 4 024 Discontinued(Me dication List Clean Up) documented as of this [...] Continue synthroid Coronary artery disease invo lving osage coronary artery of osage heart without angina pectoris 07/03/2012 Overview: 60% [...] mRNA, LNP-s, No Pre serve, 2-Dose Series ([facility]) 08/29/2021,10/23/2020,10/02/2020 COVID-19, MRNA-LNP, 23-24, P F, 30 MCG/0.3 mL, 12 YRS AND ABOVE, IM ([facility]) 08/04/2023 Covid-19, Mrna, Lnp-s, Pf, B ivalent, 30 Mcg, IM, 12 yrs and above ([facility]) 08/02/2022 Pneumococcal Conjugate Vacc, 13 Valent (Prevnar) [...] AM EDT Scheduled Telephone [facility], [facility] [address] [place] [address] Baylee Sandhu, [address] [place] [address] 05/14/2024 7:00 AM EDT Laboratory Lab Mobile Phlebotomy [facility] [address] [facility] [place] [address] [facility], G[facility] Mobile Home Draw [address] [facility] [place] [address] 05/24/2024 8:30 AM EDT Home Visit [facility], [facility] [address] [place] [address] Destiny Schultz, RN 132 [facility] [place] [address] 10/01/2024 1:00 PM EST Telemedicine Family Medicine [address] [place] [phone] Kusum Jones CRNP [address] [place] [address] [place] [address] 10/13/2024 11:30 AM EST Telemedicine Urology, [facility] 132 [facility] [place] [address] Chandler Pena MD [address] [place] [address] 11/24/2024 1:40 PM EDT Office Visit Dermatology [address] [place] [address] Sheryl Pena PA-C [address] [place] [address] [place] [address] 04/18/2025 1:20 PM EDT Telemedicine Family Medicine [address] [place] [phone] Verónica Benavides MD [address] [place] [address] [place] [address] Health Maintenance Due Date Last Done Comments [...] Additional history exists CKD HGB USE SMARTSET 04118 04/30/202504/30, 04/30/2024, 04/02/2024, Additional history exists CKD PHOS USE SMARTSET 96934 04/30/2025 09/0 01/2024, 04/02/2024, 02/07/2023, Additional history [...] encounter Visit Diagnoses Diagnosis Ambulatory dysfunction- Primary Acute pain of left knee Arthritis of left hip Urinary tract infection due to Proteus Urinary tract infection, site not specified 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) Type 2 diabetes mellitus with hemoglobin A1c goal of less than 8.0% (HCC) Coronary artery disease involving osage coronary artery of osage heart without angina pectoris Lymphedema of both lower extremities 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
--- OUTSIDE RECORDS SUMMARY | 2024-06-10 12:53 | External Medical Summary ---
Author Name Unknown Address Unknown Organization K01:[facility] [address] [place] [address] Laboratory Report Ordering Provider Test Date Status APOLINAR ARMANDO 05/05/2024 05:38:00 Final Observation Date Value Abnormality Reference (Units ) Status Magnesium 05/05/2024 05:38:00 2.2 1.5-2.6 (m g/dL) Final Performing Location [facility] - [address] [place] [address]
--- OUTSIDE RECORDS SUMMARY | 2024-06-10 12:53 | External Medical Summary | Summary of Care ---
Author Name Unknown Organization [facility] Address [address] [place] [address] Phone [phone] Care Team Providers Care Lawn Sprinkler Servicer Name Role Phone Verónica Benavides MD Primary Care Provide r Encounter Details Date Type Department Care Team (Late st Contact Info) Description 05/05/2024 Orders Only Lab Mobile Phlebotomy [facility] [address] [place] [address] Verónica Benavides MD [address] [place] [address] [place] [address] HTN, goal below 140/90*; Chronic kidney disease (CKD) Allergies Active Allergy Reactions Criticality Noted Date [...] mouth in the morning. 08/08/2021 Active Nystatin 374167 UNIT/GM External Powder (Nystop)Indications: Lydia rash of [...] Tablet 3 07/08/2023 Active OneTouch Delica Plus [id number] :Type 2 diabetes mellitus with hemoglobin A1c [...] no improvement on day 3, contact [facility] for possible home visit [...] carrier 06/29/2021 Last Assessment & Plan: [facility] Triage Call: Reviewed last [...] mRNA, LNP-s, No Pre serve, 2-Dose Series ([employer]anded Online) 08/29/2021,10/23/2020,10/02/2020 COVID-19, MRNA-LNP, 23-24, P F, 30 [...] Team (Late st Contact Info) Description 05/05/2024 5:10 AM EDT Laboratory Lab Mobile Phlebotomy [facility] [address] [facility] [place] [address] [facility] Mobile [facility] 100 [facility] [place] [address] Arrived 05/05/2024 8:30 AM EDT Senior Care Visit [address] [place] [address] Verónica Benavides MD [address] [place] [address] [place] [address] 05/06/2024 10:30 AM EDT Scheduled Telephone [facility], [facility] [address] [facility] [place] [address] Baylee Sandhu, [address] [facility] [place] [address] 05/14/2024 7:00 AM EDT Laboratory Lab Mobile Phlebotomy [facility] [address] [place] [address] [facility], [facility] Mobile Home Draw [address] [place] [address] 05/24/2024 8:30 AM EDT Home Visit [facility], [facility] [address] [place] [address] Destiny Schultz, POPPY [address] [place] [address] 10/01/2024 1:00 PM EST Telemedicine Family Medicine [address] [place] [phone] Kusum Jones CRNP [address] [place] [address] [place] [address] 10/13/2024 11:30 AM EST Telemedicine Urology, [facility] [address] [place] [address] Chandler Pena MD [address] [place] [address] 11/24/2024 1:40 PM EDT Office Visit Dermatology [address] [place] [address] Sheryl Pena PA-C [address] [place] [address] [place] [address] 04/18/2025 1:20 PM EDT Telemedicine Family Medicine [address] [place] [phone] Verónica Benavides MD [address] [place] [address] [place] [address] Scheduled Orders Name Type Priority Associated Diagnoses Orde r Schedule CBC Lab Routine HTN, goal below 140/90 Chronic kidney disease (CKD) Expected: 05/05/2024, Expires: 05/05/2025 COMPREHENSIVE METABOLIC PANEL Lab Routine HTN, goal below 140/90 Chronic kidney disease (CKD) Expected: 05/05/2024, Expires: 05/05/2025 MAGNESIUM Lab Routine HTN, goal below 140/90 Chronic kidney disease (CKD) Expected: 05/05/2024, Expires: 05/05/2025 PHOSPHORUS Lab Routine HTN, goal below 140/90 Chronic kidney disease (CKD) Expected: 05/05/2024, Expires: 05/05/2025 Health Maintenance Due Date Last Done Comments [...] Additional history exists CKD HGB USE SMARTSET 49292 04/30/202504/30, 04/30/2024, 04/02/2024, Additional history exists CKD PHOS USE SMARTSET 15977 04/30/2025 09/0 01/2024, 04/02/2024, 02/07/2023, Additional history [...] as of this encounter Visit Diagnoses Diagnosis HTN, goal below 140/90- Primary Unspecified essential hypertension Chronic kidney disease (CKD) Chronic kidney disease, unspecified documented in this encounter Advance Directives Documents on File Type Date Recorded 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
--- OUTSIDE RECORDS SUMMARY | 2024-06-10 12:53 | External Medical Summary ---
Author Name Unknown Address Unknown Organization K0G:[facility] [address] - [address] [place] [address] Laboratory Report Ordering Provider Test Date Status APOLINAR ARMANDO 05/05/2024 05:38:00 Final Observation Date Value Abnormality Reference (Units ) Status WBC, Total 05/05/2024 05:38:00 6.65 4.00-10.8 0 (K/uL) Final RBC 05/05/2024 05:38:00 2.33 3.85-5.15 (M/uL) Final Hemoglobin 05/05/2024 05:38:00 9.0 Below low normal 12 .0-15.3 (g/dL) Final HCT 05/05/2024 05:38:00 28.3 Below low normal 36. 0-45.2 (%) Final MCV 05/05/2024 05:38:00 121.5 81.5-97.5 (fL) Final MCH 05/05/2024 05:38:00 38.6 27.0-34.0 (pg) Final MCHC 05/05/2024 05:38:00 31.8 32.0-36.0 (g/dL) Final RDW 05/05/2024 05:38:00 14.4 11.5-15.5 (%) Final Platelets 05/05/2024 05:38:00 363 140-400 (K /uL) Final MPV 05/05/2024 05:38:00 9.8 6.6-11.1 ( fL) Final Performing Location [facility]ATORY [facility] 57[address] 0 - [address] [place] [address]
--- OUTSIDE RECORDS SUMMARY | 2024-06-10 12:54 | External Medical Summary | Summary of Care ---
Author Name Unknown Organization [facility] Address [address] [place] [address] Phone [phone] Care Team Providers Care Job Estimator Name Role Phone Verónica Benavides MD Primary Care Provide r Reason for Visit * Reason Onset Date Comments [facility]: Maintenance 04/29/2024 Encounter Details Date Type Department Care Team (Late st Contact Info) Description 04/29/2024 Telephone [facility], [facility] [address] [place] [address] Teressa Ramirez, ED EDUCATIONAL AIDE [address] [place] [address] [facility]: Maintenance Allergies Active Allergy Reactions Criticality Noted Date Comments Adhesive Tape Medium 01/30/2022 Ibuprofen Hives 01/13/2012 Aspirin Hives,Rash 09/15/2000 Sulfamethoxazole-Trimeth oprim Nausea/vomiting,Othe r (Please comment) 10/27/2020 Dizziness Ciprofloxacin Hcl 06/16/2019 Hoarse, dizzy,disoriented Morphine 09/21/2021 Blacked out Penicillins Hives,Rash 09/15/2000 Prednisone 12/30/2017 Weakness/memory changes/blurred vision documented as of this encounter (statuses as of 04/29/2024) Medications Medication Sig Dispensed Refills Start Date [...] mouth in the morning. 08/08/2021 Active Nystatin 012152 UNIT/GM External Powder (Nystop)Indications: Lydia rash of [...] Tablet 3 07/08/2023 Active OneTouch Delica Plus [id number] :Type 2 diabetes mellitus with hemoglobin A1c [...] If no improvement on day 3, contact [facility] for possible home visit 1 [...] schemic cardiomyopathy (HCC),Coronary artery disease involving [place] [...] days. For 7 days. 14 Capsule 04/23/2024 4 Active Nitrofurantoin Monohyd Macro 100 MG Oral Capsule (Macrobid)Indication s:Recurrent UTI (urinary tract infection) Take 1 Capsule by mouth every night at bedtime. 90 Capsule 1 04/23/2024 Active documented as of this encounter (statuses as of 04/29/2024) Active Problems Problem Noted Date Diagnosed Date [...] as of this encounter (statuses as of 04/29/2024) Resolved Problems Problem Noted Date Diagnosed Date [...] as of this encounter (statuses as of 04/29/2024) Immunizations Name Administration Dates Next Due COVID-19 mRNA, LNP-s, No Pre serve, 2-Dose Series (Food[employer]ee) 08/29/2021,10/23/2020,10/02/2020 COVID-19, MRNA-LNP, 23-24, P F, 30 MCG/0.3 mL, 12 YRS AND ABOVE, IM ([facility]) 08/04/2023 Covid-19, Mrna, Lnp-s, Pf, B ivalent, 30 Mcg, IM, 12 yrs and above ([facility]ee) 08/02/2022 Pneumococcal Conjugate Vacc, 13 Valent (Prevnar) [...] Telephone Encounter - Teressa Ramirez LPN - 04/29/2024 12:28 PM EDT Patient discahrged yesterday 04/28 from [facility] to [facility] Adding to Baylee Sandhu's schedule for 1 week follow up call FYI Care Team documented in this encounter Plan of Treatment Upcoming Encounters Date Type Department Care Team (Late st Contact Info) Description 04/30/2024 10:00 AM EDT Scheduled Telephone [facility], [facility] 132 [facility] [place] [address] Coordinator, [facility] [address] [place] [address] 05/06/2024 10:30 AM EDT Scheduled Telephone [facility], [facility] [address] [place] [address] Baylee Sandhu, YENNIFER [address] [place] [address] 05/14/2024 7:00 AM EDT Laboratory Lab Mobile Phlebotomy [facility] 25[address] [facility] [place] [address] Mv[facility], Gml Mobile Home Draw 25[address] [facility] [place] [address] 05/24/2024 8:30 AM EDT Home Visit [facility], [facility] 132 [facility] [place] [address] Destiny Schultz, POPPY 132 [facility] [place] [address] 10/01/2024 1:00 PM EST Telemedicine Family Medicine [address] [phone] Kusum Jones CRNP [address] [place] [address] [place] [address] 10/13/2024 11:30 AM EST Telemedicine Urology, [facility] 132 [facility] [place] [address] Chandler Pena MD [address] [place] [address] 11/24/2024 1:40 PM EDT Office Visit Dermatology [address] [place] [address] Sheryl Pena PA-C [address] [place] [address] [place] [address] 04/18/2025 1:20 PM EDT Telemedicine Family Medicine [address] [place] [phone] Verónica Benavides MD [address] [place] [address] [place] [address] Health Maintenance Due Date Last Done [...] Additional history exists CKD HGB USE SMARTSET 18424 04/02/202504/02, 04/02/2024, 05/26/2023, Additional history exists CKD PHOS USE SMARTSET 47152 04/02/2025 08/0 04/2024, 02/07/2023, 08/07/2021, Additional history [...] on File Type Date Recorded Patient Rn Transitional Care Expl anation Advance Directives and Living Will 08/10/2021 ADVANCE DIRECTIVE / LIVING WILL LIVING WILL Healthcare Agents on File Name Relationship Healthcare Agent [facility] Communication Josselyn [facility] Power of Attor nathalie Care Teams Job Estimator Relationship Specialty Start Date End Date Verónica Benavides MD [address] [place] [address] [place] [address] PCP - General Family Medicine 09/16/14 documented as of this encounter
--- OUTSIDE RECORDS SUMMARY | 2024-06-10 12:54 | External Medical Summary | Summary of Care ---
Author Name Unknown Organization [facility] Address [address] [place] [address] Phone [phone] Care Team Providers Care Energy Crop Farmer Name Role Phone Verónica Benavides MD Primary Care Provide r Encounter Details Date Type Department Care Team (Late st Contact Info) Description 04/27/2024 Population Health External Data Unspecified Department Allergies Active Allergy Reactions Criticality Noted Date Comments Adhesive Tape Medium 01/30/2022 Ibuprofen Hives 01/13/2012 Aspirin Hives,Rash 09/15/2000 Sulfamethoxazole-Trimeth oprim Nausea/vomiting,Othe r (Please comment) 10/27/2020 Dizziness Ciprofloxacin Hcl 06/16/2019 Hoarse, dizzy,disoriented Morphine 09/21/2021 Blacked out Penicillins Hives,Rash 09/15/2000 Prednisone 12/30/2017 Weakness/memory changes/blurred vision documented as of this encounter (statuses as of 04/27/2024) Medications Medication Sig Dispensed Refills Start Date [...] mouth in the morning. 08/08/2021 Active Nystatin 594445 UNIT/GM External Powder (Nystop)Indications: Lydia rash of [...] Tablet 3 07/08/2023 Active OneTouch Delica Plus [id number] :Type 2 diabetes mellitus with hemoglobin A1c goal of less than 8.0% ([facility]) Test up to two times daily or as directed by [facility] pharmacist 200 Each 3 07/11/2023 Active Estrogens [...] improvement on day 3, contact [facility] for possible home visit 1 Each [...] XL)Indications:Non-i schemic cardiomyopathy (HCC),Coronary artery disease involving torres martinez coronary artery of torres martinez heart without angina pectoris,HTN, goal below 140/90 [...] as of this encounter (statuses as of 04/27/2024) Active Problems Problem Noted Date Diagnosed Date [...] 06/29/2021 Last Assessment & Plan: [facility] Triage Call: Reviewed last C&S - [...] Continue synthroid Coronary artery disease invo lving torres martinez coronary artery of torres martinez heart without angina pectoris 07/03/2012 Overview: 60% [...] as of this encounter (statuses as of 04/27/2024) Resolved Problems Problem Noted Date Diagnosed Date [...] as of this encounter (statuses as of 04/27/2024) Immunizations Name Administration Dates Next Due COVID-19 mRNA, LNP-s, No Pre serve, 2-Dose Series ([employer]) 08/29/2021,10/23/2020,10/02/2020 COVID-19, MRNA-LNP, 23-24, P F, 30 MCG/0.3 mL, 12 YRS AND ABOVE, IM (Availendar-ComirnatMediamind) 08/04/2023 Covid-19, Mrna, Lnp-s, Pf, B ivalent, 30 Mcg, IM, 12 yrs and above ([employer]) 08/02/2022 Pneumococcal Conjugate Vacc, 13 Valent (Prevnar) [...] 10:00 AM EDT [facility] [address] [place] [address] Coordinator, [facility] [address] [place] [address] 05/14/2024 7:00 AM EDT Laboratory Lab Mobile Phlebotomy [facility] [address] [facility] [place] [address] Mv[facility], Gml Mobile Home Draw 2520 [facility] [place] [address] 05/24/2024 8:30 AM EDT [facility] [address] [place] [address] Destiny Schultz, POPPY [address] [place] [address] 10/01/2024 1:00 PM EST Telemedicine Family Medicine [address] [place] [phone] Kusum Jones CRNP [address] [place] [address] [place] [address] 10/13/2024 11:30 AM EST Telemedicine Urology, [facility] [place] [address] Chandler Pena MD [address] [place] [address] 11/24/2024 1:40 PM EDT Office Visit Dermatology [address] [place] [address] Sheryl Pena PA-C [address] [place] [address] [place] [address] 04/18/2025 1:20 PM EDT Telemedicine Family Medicine [address] [place] [phone] Verónica Benavides MD [address] [place] [address] [place] [address] Health Maintenance Due Date Last Done Comments Zoster Vaccines (1 of 2) 1985 Adult Wellness Visit 09/11/2016 09/11/2015 DXA Scan 04/02/2020 04/02/2017, 12/24, 11/05/2007 Depression Screening 05/24/2020 05/24/2019 Diabetic Foot Exam 11/08/2020 11/09/2019, 0 09/01/2018, 08/28/2017, Additional history exists DTap/Tdap Vaccines (2 - Td or Tdap) 11/16/2023 11/15/2013, 03/29/2008, 03/29/2008 Diabetic Eye Exam 12/22/2023 12/21/2022, , 03/10/2021, Additional history exists COVID-19 Vaccine ( - 2022- season) 2024 08/04/2023, 08/02/2022, 08/02/2022, Additional history exists Influenza Vaccine (FLU shot) (#1) 2024 06/20/2022, 06/20/2022, 06/29/2021, Additional history exists HbA1c 10/03/2024 04/02/2024, 01/24, 11/01/2022, Additional history exists CKD HGB USE SMARTSET 69235 04/02/202504/02, 04/02/2024, 05/26/2023, Additional history exists CKD PHOS USE SMARTSET 64531 04/02/2025 08/0 04/2024, 02/07/2023, 08/07/2021, Additional history [...] Documents on File Type Date Recorded 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
--- OUTSIDE RECORDS SUMMARY | 2024-06-10 12:54 | External Medical Summary | Continuity Of Care Document ---
Author Name Unknown Address [address] [place] [address] Organization [facility] ( ) Care Team Providers Care Drapery Supervisor Name Role Phone Verónica Benavides Primary Care Provider [phone] Allergies Allergy Reaction Start Date End Date Status ASPIRIN Hives Active IBUPROFEN Hives, Rash Active PENICILLINS Hives, Rash Active MORPHINE Active ADHESIVE Active CIPROFLOXACIN Disorientation, Dizziness 000 Active SULFAMETHOXAZOLE Dizziness, Nausea, Vomiting Active TRIMETHOPRIM Dizziness, Nausea, Vomiting Active PREDNISONE Disorientation, Weakness Active VITAL SIGNS Date Time Diastolic blood pressure Systolic blood pressure Body height Body weight Temperature SpO2 Blood Sugar Pulse Respirations 79405 904 27619 0 68.00 mm[Hg] - Sitting 116.00 mm[Hg] - Sitting 66 NI 235.00 NI 98.20 Ear 92.00 % 85.00/ min 18.00/min 31464 904 51101 7 66 NI 98189 904 66571 9 235.00 [place] [address] 905 35826 5 26971 905 79566 2 Immunizations Vaccine Date Status COVID-19 10/02/2020 Completed COVID-19 10/23/2020 Completed COVID-19 08/29/2021 Completed COVID-19 08/02/2022 Completed COVID-19 08/04/2023 Completed (PPSV23)Pneumococcal 05/25/2008 Completed TDaP 11/15/2013 Completed
--- OUTSIDE RECORDS SUMMARY | 2024-06-10 12:54 | External Medical Summary | Continuity Of Care Document ---
Author Name Unknown Address [address] [place] [address] Organization [facility] ( ) Care Team Providers Care Prototype Sewer Name Role Phone Donaldo Benavidestanvi Primary Care Provider [phone] Allergies Allergy Reaction Start Date End Date Status ASPIRIN Hives Active IBUPROFEN Hives, Rash Active PENICILLINS Hives, Rash Active MORPHINE Active ADHESIVE Active CIPROFLOXACIN Disorientation, Dizziness 000 Active SULFAMETHOXAZOLE Dizziness, Nausea, Vomiting Active TRIMETHOPRIM Dizziness, Nausea, Vomiting Active PREDNISONE Disorientation, Weakness Active VITAL SIGNS Date Time Diastolic blood pressure Systolic blood pressure Body height Body weight Temperature SpO2 Blood Sugar Pulse Respirations 19418 904 29851 0 68.00 mm[Hg] - Sitting 116.00 mm[Hg] - Sitting 66 NI 235.00 NI 98.20 Ear 92.00 % 85.00/ min 18.00/min 99152 904 89357 7 66 NI [address]07 904 50439 9 [place] [address] 905 39718 5
--- OUTSIDE RECORDS SUMMARY | 2024-06-10 12:54 | External Medical Summary ---
Author Name Unknown Address Unknown Organization K01:[facility] [address] [place] [address] Laboratory Report Ordering Provider Test Date Status APOLINAR ARMANDO 04/30/2024 05:31:00 Final Observation Date Value Abnormality Reference (Units ) Status Magnesium 04/30/2024 05:31:00 2.0 1.5-2.6 (m g/dL) Final Performing Location [facility] - [address] [place] [address]
--- OUTSIDE RECORDS SUMMARY | 2024-06-10 12:54 | External Medical Summary ---
Author Name Unknown Address Unknown Organization K01[facility] [address] [place] [address] Laboratory Report Ordering Provider Test Date Status APOLINAR ARMANDO 04/30/2024 05:31:00 Final Observation Date Value Abnormality Reference (Units ) Status Phosphate 04/30/2024 05:31:00 3.6 2.5-4.8 (m g/dL) Final Performing Location [facility] - [address] [place] [address]
--- OUTSIDE RECORDS SUMMARY | 2024-06-10 12:54 | External Medical Summary ---
Author Name Unknown Address Unknown Organization K0G:[facility] [address] - [address] [place] [address] Laboratory Report Ordering Provider Test Date Status APOLINAR ARMANDO 04/30/2024 05:31:00 Final Observation Date Value Abnormality Reference (Units ) Status WBC, Total 04/30/2024 05:31:00 8.93 4.00-10.8 0 (K/uL) Final RBC 04/30/2024 05:31:00 2.29 3.85-5.15 (M/uL) Final Hemoglobin 04/30/2024 05:31:00 8.9 Below low normal 12 .0-15.3 (g/dL) Final HCT 04/30/2024 05:31:00 27.3 Below low normal 36. 0-45.2 (%) Final MCV 04/30/2024 05:31:00 119.2 81.5-97.5 (fL) Final MCH 04/30/2024 05:31:00 38.9 27.0-34.0 (pg) Final MCHC 04/30/2024 05:31:00 32.6 32.0-36.0 (g/dL) Final RDW 04/30/2024 05:31:00 14.3 11.5-15.5 (%) Final Platelets 04/30/2024 05:31:00 326 140-400 (K /uL) Final MPV 04/30/2024 05:31:00 9.9 6.6-11.1 ( fL) Final Performing Location [facility]ORY [facility] [address] [place] [address]
--- OUTSIDE RECORDS SUMMARY | 2024-06-10 12:54 | External Medical Summary | Summary of Care ---
Author Name Unknown Organization [facility] Address [address] [place] [address] Phone [phone] Care Team Providers Care Client Services Vice President Name Role Phone Verónica Benavides MD Primary Care Provide r Encounter Details Date Type Department Care Team (Late st Contact Info) Description 04/29/2024 Orders Only Lab Mobile Phlebotomy [facility] [address] [place] [address] Verónica Benavides MD [address] [place] [address] [place] [address] Chronic kidney disease (CKD)*; HTN, goal below 140/90 Allergies Active Allergy [...] mouth in the morning. 08/08/2021 Active Nystatin 555872 UNIT/GM External Powder (Nystop)Indications: Lydia rash of [...] Tablet 3 07/08/2023 Active OneTouch Delica Plus [id number] :Type 2 diabetes mellitus with hemoglobin A1c goal of less than 8.0% ([facility]) Test up to two times daily or as directed by [facility] pharmacist 200 Each 3 07/11/2023 [...] mRNA, LNP-s, No Pre serve, 2-Dose Series ([employer]) 08/29/2021,10/23/2020,10/02/2020 COVID-19, MRNA-LNP, 23-24, P F, 30 MCG/0.3 mL, 12 YRS AND ABOVE, IM ([facility]et[facility]) 08/04/2023 Covid-19, Mrna, Lnp-s, Pf, B ivalent, 30 Mcg, IM, 12 yrs and above ([employer]) 08/02/2022 Pneumococcal Conjugate Vacc, 13 Valent (Prevnar) [...] Team (Late st Contact Info) Description 04/30/2024 5:10 AM EDT Laboratory Lab Mobile Phlebotomy [facility] [address] [facility] [place] [address] [place] [address] 04/30/2024 10:00 AM EDT Scheduled Telephone [facility], [facility] 132 [facility] [place] [address] Coordinator, [facility] [address] [facility] [place] [address] 05/06/2024 10:30 AM EDT Scheduled Telephone [facility], [facility] [address] [facility] [place] [address] Baylee Sandhu, [address] [place] [address] 05/14/2024 7:00 AM EDT Laboratory Lab Mobile Phlebotomy [facility] [address] [facility] [place] [address] Mvmg, Gml Mobile Home Draw [address] [facility] [place] [address] 05/24/2024 8:30 AM EDT Home Visit [facility], [facility] 132 [facility] [place] [address] Destiny Schultz RN 132 [facility] [place] [address] 10/01/2024 1:00 PM EST Telemedicine Family Medicine [address] [place] [phone] Kusum Jones CRNP [address] [place] [address] [place] [address] 10/13/2024 11:30 AM EST Telemedicine Urology, [facility] 132 [facility] [place] [address] Chandler Pena MD [address] [place] [address] 11/24/2024 1:40 PM EDT Office Visit Dermatology [address] [place] [address] Sheryl Pena PA-C [address] [place] [address] [place] [address] 04/18/2025 1:20 PM EDT Telemedicine Family Medicine [address] [place] [phone] Verónica Benavides MD [address] [place] [address] [place] [address] Scheduled Orders Name Type Priority Associated Diagnoses Orde r Schedule CBC WITH WBC DIFFERENTIAL Lab Routine Chronic kidney disease (CKD) HTN, goal below 140/90 Expected: 04/30/2024, Expires: 04/29/2025 COMPREHENSIVE METABOLIC PANEL Lab Routine Chronic kidney disease (CKD) HTN, goal below 140/90 Expected: 04/30/2024, Expires: 04/29/2025 MAGNESIUM Lab Routine Chronic kidney disease (CKD) HTN, goal below 140/90 Expected: 04/30/2024, Expires: 04/29/2025 PHOSPHORUS Lab Routine Chronic kidney disease (CKD) HTN, goal below 140/90 Expected: 04/30/2024, Expires: 04/29/2025 Health Maintenance Due Date Last Done Comments [...] Additional history exists CKD HGB USE SMARTSET 04053 04/02/202504/02, 04/02/2024, 05/26/2023, Additional history exists CKD PHOS USE SMARTSET 85915 04/02/2025 08/0 04/2024, 02/07/2023, 08/07/2021, Additional history [...] as of this encounter Visit Diagnoses Diagnosis Chronic kidney disease (CKD)- Primary Chronic kidney disease, unspecified HTN, goal below 140/90 Unspecified essential hypertension documented in this encounter Advance Directives Documents on File Type Date Recorded Patient Teacher Of The Hearing Impaired Expl anation Advance Directives and Living Will 08/10/2021 ADVANCE DIRECTIVE / LIVING WILL LIVING WILL Healthcare Agents on File Name Relationship [facility] Communication Josselyn Judd Adult Child Health Care Power of Attor nathalie Care Teams Client Services Vice President Relationship Specialty Start Date End Date Verónica Benavides MD [address] [place] [address] [place] [address] PCP - General Family Medicine 09/16/14 documented as of this encounter
--- OUTSIDE RECORDS SUMMARY | 2024-06-10 12:54 | External Medical Summary ---
Author Name Unknown Address Unknown Organization K0G:[facility] [address] - [address] [place] [address] Laboratory Report Ordering Provider Test Date Status APOLINAR ARMANDO 04/30/2024 05:31:00 Final Observation Date Value Abnormality Reference (Units ) Status SYNC LEUKOCYTES IN BLOOD BY AUTOMATED COUNT 04/30/2024 05:31:00 8.93 4.00-10.80 (K/uL) Final Segs 04/30/2024 05:31:00 62.7 40.0-75.0 (%) Final Lymphs % 04/30/2024 05:31:00 25.6 18.0-42.0 (%) Final Monos 04/30/2024 05:31:00 10.6 1.0-11.0 (%) Final Eosinophils 04/30/2024 05:31:00 0.7 0.0-6.0 (%) Final Basos 04/30/2024 05:31:00 0.4 0.0-2.0 (%) Final Absolute Segs 04/30/2024 05:31:00 5.59 1.80-7.70 (K/uL) Final Lymphs, absolute 04/30/2024 05:31:00 2.29 1.00-4.80 (K/ul) Final Monos, Abs 04/30/2024 05:31:00 0.95 0.00-1.10 (K/uL) Final Eos, Abs 04/30/2024 05:31:00 0.06 0.00-0.70 (K/uL) Final Basos, Abs 04/30/2024 05:31:00 0.04 0.00-0.20 (K/uL) Final Performing Location [facility] [place] [address]
--- OUTSIDE RECORDS SUMMARY | 2024-06-10 14:47 | External Medical Summary | Summary of Care ---
Author Name Unknown Organization [facility] Address [address] [place] [address] Phone [phone] Care Team Providers Care Environmental Sustainability Manager Name Role Phone Verónica Benavides MD Primary Care Provide r Reason for Visit * Reason Onset Date Comments [facility]: Maintenance 2024 Encounter Details Date Type Department Care Team (Late st Contact Info) Description 2024 Telephone [facility], [facility] [address] [place] [phone] Tali Patel RN [address] [place] [address] [facility]: Maintenance Allergies Active Allergy Reactions Criticality Noted Date Comments Adhesive Tape Medium 01/30/2022 Ibuprofen Hives 01/13/2012 Aspirin Hives,Rash 09/15/2000 Sulfamethoxazole-Trimeth oprim Nausea/vomiting,Othe r (Please comment) 10/27/2020 Dizziness Ciprofloxacin Hcl 06/16/2019 Hoarse, dizzy,disoriented Morphine 09/21/2021 Blacked out Penicillins Hives,Rash 09/15/2000 Prednisone 12/30/2017 Weakness/memory changes/blurred vision documented as of this encounter (statuses as of 2024) Medications Medication Sig Dispensed Refills Start Date [...] Strip 1 05/30/2023 Active OneTouch Delica Plus [id number] :Type 2 diabetes mellitus with hemoglobin A1c [...] as of this encounter (statuses as of 2024) Active Problems Problem Noted Date Diagnosed Date [...] as of this encounter (statuses as of 2024) Resolved Problems Problem Noted Date Diagnosed Date [...] as of this encounter (statuses as of 2024) Immunizations Name Administration Dates Next Due COVID-19 mRNA, LNP-s, No Pre serve, 2-Dose Series ([employer]) 08/29/2021,10/23/2020,10/02/2020 COVID-19, MRNA-LNP, 23-24, P F, 30 MCG/0.3 mL, 12 YRS AND ABOVE, IM (Loaded Pocket-ComirnatTake5) 08/04/2023 Covid-19, Mrna, Lnp-s, Pf, B ivalent, [...] Telephone Encounter - Tali Patel RN - 2024 1:29 PM EDT Images from the original note were not included. PC received from Mony at [facility] to assure [facility] received xray results on patient Chart reviewed xray results scanned in today HV completed yesterday for weight gain,SOB,UTI sx.. please review RNCM HV scheduled today as well Sending to [facility] for advisement documented in this encounter Plan of Treatment Upcoming Encounters Date Type Department Care Team (Late st Contact Info) Description 2024 4:00 PM EDT [facility] [place], [facility] [address] [place] [address] Destiny Schultz, RN [address] [place] [address] 06/10/2024 10:45 AM EDT Scheduled Telephone [facility] [address] [place] [address] Coordinator, [facility] [address] [place] [address] 06/11/2024 7:05 AM EDT Laboratory Lab Mobile Phlebotomy [facility] [facility] [place] [address] [facility], G[facility] Mobile Home Draw [facility] [facility] [place] [address] 06/11/2024 4:00 PM EDT [facility], [facility] [address] [place] [address] Destiny Schultz, POPPY 132 [facility] [place] [address] 10/01/2024 1:00 PM EST Telemedicine Family Medicine [address] [place] [phone] Kusum Jones CRNP [address] [place] [address] [place] [address] 10/13/2024 11:30 AM EST Telemedicine Urology, [facility] 132 [facility] [place] [address] Chandler Pena MD [address] [place] [address] 11/24/2024 1:40 PM EDT Office Visit Dermatology [address] [place] [address] Sheryl Pena PA-C [address] [place] [address] [place] [address] 04/18/2025 1:20 PM EDT Telemedicine Family Medicine [address] [place] [phone] Verónica Benavides MD [address] [place] [address] [place] [address] Health Maintenance Due Date Last Done Comments [...] Additional history exists CKD PHOS USE SMARTSET 48008 05/05/202504/25, 04/30/2024, 04/02/2024, Additional history exists CKD HGB USE SMARTSET 36409 05/26/202505/26, 05/26/2024, 05/07/2024, Additional history exists Pneumococcal [...] Documents on File Type Date 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
--- NOTE | 2024-06-10 16:13 | Hospitalist Progress Note ---
Date of Service June 10, 2024 Assessment & Plan (1) Acute on chronic systolic congestive heart failure: (2) Acute systolic heart failure due to valvular disease: (3) Asymptomatic bacteriuria: (4) Severe aortic stenosis: (5) Diabetes mellitus, type II: (6) Hypothyroidism: Plan Patient with acute decompensated systolic and valvular heart failure that failed outpatient interventions. Continue IV diuresis, anticipate transition to oral diuresis tomorrow Discontinue ertapenem, suspect patient has chronic asymptomatic bacteriuria. Appears to have no symptoms or other constitutional symptoms or findings consistent with infection. Will continue to monitor Check TSH in a.m. Activity as tolerated Continue treatment for diabetes Son at bedside and updated Admission and Anticipated Discharge Date Admission Date: June 09, 2024 Subjective Patient feeling much better. Noticed significantly less edema. No significant urinary complaints, [place] catheter in place at this time Physical Exam Physical Exam: Constitutional: Alert HEENT: Mucous membranes moist. Lungs: Clear to auscultation, decreased, no wheezes rales or rhonchi CV: S1-S2, regular, grade 4/6 systolic ejection murmur Abdomen: Soft, nontender, nondistended Extremities: 1-2+ pitting edema lower extremity, improved Neuro: No focal deficits Psych: Cooperative, normal mood Results & Data Results & Data Vital Signs (Past 12 Hours) Vital Signs Temp Pulse Pulse Pulse Resp BP BP 06/10/24 15:30 36.3 C L 70 18 102/64 06/10/24 12:40 36.4 C 62 18 105/64 06/10/24 08:47 63 06/10/24 07:36 36.6 C 59 L 20 90/54 L 06/10/24 07:32 06/10/24 04:30 36.4 C L 65 20 102/63 Pulse Ox O2 Del Method O2 Flow Rate 06/10/24 15:30 92 Room Air 06/10/24 12:40 93 Room Air 06/10/24 08:47 06/10/24 07:36 97 Nasal Cannula 3 06/10/24 07:32 Nasal Cannula 3 06/10/24 04:30 100 Nasal Cannula 3 Diagnostic Findings Reviewed imaging, laboratory and diagnostic studies. Pertinent findings as below. WBC 7.1 Hemoglobin 9.0 Potassium 3.5 Creatinine 0.77 Urinalysis reviewed Urine culture Noted growing gram-negative bacilli. (5) Diabetes mellitus, type II Diabetes mellitus search strategist insulin use: without search strategist use Diabetes mellitus complication status: with other specified complication Qualified Code(s): E11.69 - Type 2 diabetes mellitus with other specified complication (6) Hypothyroidism Hypothyroidism type: unspecified Qualified Code(s): E03.9 - Hypothyroidism, unspecified
[2024-06-10] MEDS: POTASSIUM CHLORIDE CRTAB 20 MEQ TABCR PO STA (16:18)
[2024-06-11 07:14] LABS: BUN Creatinine Ratio 16.7 (10-20); Calcium 9.1 mg/dl (8.6-10.3); Creatinine Clr Calc Pharmacy 50.5 ml/min; Potassium 4.2 mmol/L (3.5-5.1)
[2024-06-11 07:29] LABS: Thyroid Stimulating Hormone 8.606 uIu/ml (0.300-4.500)
[2024-06-11 08:06] LABS: T4 Free Thyroxine 1.17 ng/dl (0.61-1.60)
--- NOTE | 2024-06-11 12:30 | Cardiology Progress Note ---
Date of Service June 11, 2024 Assessment & Plan (1) Acute on chronic combined systolic and diastolic heart failure: (2) Severe aortic stenosis: (3) UTI (urinary tract infection): Plan 06/10/24: Patient admitted with weakness, SOB, increased weight gain/edema and failing ou tpatient diuretic titration plan. Chest xray with mild pulm vascular congestion on admission. Started on IV furosemide 40 mg BID. Symptoms improving after several doses. Weight trending downward this morning when compared to home weight, per patient. Good urine outputs today. Continue furosemide 40 mg BID IV today Monitor I+O's Monitor electrolytes BP borderline low at times. Monitor. She is asymptomatic. Echo with severe , known. Previously evaluated for TAVR and deemed not a candidate for procedure. Conservative management recommended. LVEF mildly reduced at 45%. Medication management limited by hypotension. History of dilated/non ischemic cardiomyopathy with LVEF ranging 25-50% in the past. 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 06/11/24: Patient with improved volume status and symptoms since admission. Good diuresis/outputs and weight down. Symptoms back to baseline. Recommend increasing torsemide to 80 mg BID on discharge (Prior home dose was 60 mg BID). Known severe . Not amenable to intervention. Conservative therapies recommended. Continue all other home medications. Continue treatment for UTI per hospitalist. No further cardiac testing warranted. Likely discharge later today. Discussed with hospitalist. Case discussed with Dr. Qureshi I spent a total of 30 minutes on the date of service in preparation, delivery, and documentation of the care provided to this patient, excluding any time spent in the performance of separately billed services. Marcela Evans PA-C Department of Cardiology, [facility] This chart was completed in part utilizing Speech Voice Recognition Software. Grammatical errors, random word insertions, pronoun errors, and incomplete sentences are an occasional consequence of this system due to software limitations, ambient noise, and hardware issues. Any formal questions or concerns about the content, text, or information contained within the body of this dictation should be directly addressed to the provider for clarification. Admission and Anticipated Discharge Date Admission Date: June 09, 2024 Supervising Physician Co-Signing Physician Notes I have personally performed a history and physical examination on the patient. I have reviewed the advance practitioner's documentation, and I agree with, and take responsibility for the plan of care. 89-year-old female present to the hospital with urinary tract infection and acute on chronic heart failure with mildly reduced left ventricular ejection fraction in the setting of severe aortic valve stenosis. Repeat echocardiogram confirms critical calcific aortic valve stenosis with mild LV systolic dysfunction. Patient recently evaluated for TAVR, however, deemed "not a candidate for procedure". Conservative management recommended at that time. Clinically improved today. Transition to oral furosemide 80 mg twice daily (outpatient dose previously 60 mg twice daily). No further inpatient cardiac testing or intervention recommended at this time. Cardiology will sign off. Please call with additional concerns/questions. Abilio Qureshi DO, [facility] Subjective Patient resting in bed feeling well. Laying supine without orthopnea. No chest pain. She reports her SOB has improved. Back to baseline. Edema also improved per patient. Known/chronic lymphedema. Review of Systems Review of Systems: All systems reviewed & are unremarkable except as noted in HPI & below Physical Exam Constitutional: WD/WN, vitals as above + morbidly obese; no acute distress Neck: + thick neck Respiratory: normal respiratory effort; no labored breathing Auscultation: + diminished lung sounds; no rales and no rhonchi Cardiovascular: Rate/Rhythm: regular rate and regular rhythm Heart Sounds: + murmur (III/ systolic murmur LSB) Extremities: + edema (Chronic lymphedema noted b/l) Neurologic: PERRL, EOMI, accommodation nl, no face palsy, no dysarthria Results & Data Vital Signs (Past 12 Hours) Vital Signs Temp Pulse Pulse Resp BP Pulse Ox O2 Del Method 06/11/24 08:00 Nasal Cannula 06/11/24 07:46 36.7 C 68 20 99/62 L 96 Nasal Cannula 06/11/24 07:43 79 06/11/24 04:47 37.0 C 78 20 121/74 98 Nasal Cannula O2 Flow Rate 06/11/24 08:00 3 06/11/24 07:46 3 06/11/24 07:43 06/11/24 04:47 2 Laboratory Results Comprehensive Metabolic Panel 06/11/24 Range/Units 05:58 Sodium 141 (136-145) mmol/L Potassium 4.2 (3.5-5.1) mmol/L Chloride 104 (98-107) mmol/L Carbon Dioxide 31 (21-32) mmol/L BUN 15 (6-23) mg/dl Creatinine 0.90 (0.6-1.2) mg/dl Glucose 155 H (70-99(Fasting)) mg/dl Calcium 9.1 (8.6-10.3) mg/dl Intake and Output 06/10/24 06/11/24 06/11/24 22:59 06:59 14:59 Intake Total 375 / 375 Output Total 162 / 2150 Balance -1250 / -1775 Intake: Oral 375 / 375 Output: Urine Amount (Catheter) [id number] [place]/Indwelling 1624 Other: Weight 106.6 kg Weight Measurement Method Built in [facility] Diagnostic Findings Telemetry reviewed - Paced in the 70-80's. She had one run of non sustained PAT at 4:30 AM during presumed sleep. Echo report from 06/11 LVEF 45-50% Moderate concentric LVH Base mid inferior wall is hypokinetic Base posterior wall is hypokinetic Severe Mild AI Medications Administered Current Inpatient Medications Acetaminophen (Acetaminophen 325 Mg Tab) 650 mg PO Q4H PRN PRN Reason: Pain or Fever Stop: 07/09/24 21:33 Cyanocobalamin (Cyanocobalamin (B-12) 500 Mcg Tablet) 1,000 mcg PO QAM BRENT Stop: 07/10/24 08:59 Last Admin: 06/11/24 08:13 Dose: 1,000 mcg Dextrose (Dextrose 50% 50 Ml Syringe) 25 - 50 ml IV UD PRN; Protocol PRN Reason: Hypoglycemia Protocol Stop: 07/09/24 21:33 Diclofenac Sodium (Diclofenac Sod 1% Gel 100 Gm Tube) 2 gm EXT TID PRN; Protocol PRN Reason: pain Stop: 07/09/24 21:33 Docusate Sodium (Docusate Sodium 100 Mg Cap) 200 mg PO BID BRENT Stop: 07/09/24 21:33 Last Admin: 06/11/24 08:20 Dose: Not Given Estrogens Conjugated (Premarin Vag Crm 14 Appln/30 Gm Tube) 1 appln PV HS BRENT Stop: 07/09/24 21:33 Last Admin: 06/10/24 22:03 Dose: 1 appln Furosemide (Furosemide 40 Mg/4 Ml Vial) 40 mg IV BID BRENT Stop: 07/10/24 08:59 Last Admin: 06/11/24 08:13 Dose: 40 mg Glucagon (Glucagon For Inj 1 Mg Vial) 1 mg SQ UD PRN; Protocol PRN Reason: Hypoglycemia Protocol Stop: 07/09/24 21:33 Glucose (Glucose 40% Gel 15 Gm Tube) 15 - 30 gm PO UD PRN; Protocol PRN Reason: Hypoglycemia Protocol Stop: 07/09/24 21:33 Glucose (Glucose 10 Tab/Tube) 4 - 8 tab PO UD PRN; Protocol PRN Reason: Hypoglycemia Treatment Stop: 07/09/24 21:33 Heparin Sodium (Porcine) (Heparin Sod 5,000 Unit/0.5 Ml Vial) 5,000 units SQ Q12 BRENT Stop: 07/09/24 21:33 Last Admin: 06/11/24 08:13 Dose: 5,000 units Insulin Aspart (Insulin Aspart Per Unit Charge) 0 units SC ACHS BRENT Stop: 07/09/24 21:33 Last Admin: 06/11/24 09:03 Dose: 6 units Levothyroxine Sodium (Levothyroxine Sodium 88 Mcg Tablet) 88 mcg PO DAILYBB BRENT Stop: 07/10/24 06:29 Last Admin: 06/11/24 05:16 Dose: 88 mcg Magnesium Oxide (Magnesium Oxide 400 Mg Tab) 400 mg PO DAILY BRENT Stop: 07/10/24 08:59 Last Admin: 06/11/24 08:13 Dose: 400 mg Metoprolol Succinate (Metoprolol Succ 25mg Ext Rel Tab) 25 mg PO QPM BRENT Stop: 07/09/24 21:33 Last Admin: 06/10/24 22:05 Dose: 25 mg Miscellaneous (Carbohydrates For Hypoglycemia ) 15 - 30 gm PO UD PRN PRN Reason: Hypoglycemia Protocol Stop: 07/09/24 21:33 Ondansetron HCl (Ondansetron Inj 2 Mg/Ml 2 Ml Vial) 4 mg IV Q6H PRN PRN Reason: Nausea Stop: 07/09/24 21:33 Pantoprazole Sodium (Pantoprazole 40 Mg Tab) 40 mg PO DAILYBB [facility] Stop: 07/10/24 06:29 Last Admin: 06/11/24 05:16 Dose: 40 mg Polyethylene Glycol (Polyethylene (Miralax) 17 Gm Pack) 17 gm PO DAILY PRN PRN Reason: Constipation Stop: 07/09/24 21:33 Potassium Chloride (Potassium Chloride Crtab 20 Meq Tabcr) 20 meq PO AMHS BRENT Stop: 07/09/24 21:33 Last Admin: 06/11/24 08:12 Dose: 20 meq Spironolactone (Spironolactone 12.5 Mg Tab) 12.5 mg PO QAM BRENT Stop: 07/10/24 08:59 Last Admin: 06/11/24 08:13 Dose: 12.5 mg Vibegron (Vibegron 75 Mg Tab) 75 mg PO DAILY BRENT Stop: 07/10/24 08:59 Last Admin: 06/11/24 08:13 Dose: 75 mg Vitamin D (Cholecalciferol 25 Mcg (1000 Units) Tab) 25 mcg PO QAM BRENT Stop: 07/10/24 08:59 Last Admin: 06/11/24 08:13 Dose: 25 mcg (3) UTI (urinary tract infection) Hematuria presence: without hematuria Urinary tract infection type: acute cystitis Qualified Code(s): N30.00 - Acute cystitis without hematuria
--- NOTE | 2024-06-11 16:25 | Hospitalist Progress Note ---
Date of Service June 11, 2024 Assessment & Plan (1) Acute on chronic systolic congestive heart failure: (2) Acute systolic heart failure due to valvular disease: (3) Asymptomatic bacteriuria: (4) Severe aortic stenosis: (5) Diabetes mellitus, type II: (6) Hypothyroidism: Plan Patient significantly improved, ready for discharge Phone conversation with patient's daughter, concerned that she is weak and unable to return home, requesting rehab placement Case management notified Applications to rehab facilities placed Communication with cardiology team, can transition to oral diuretics with increased dose Continue therapies while pursuing placement Admission and Anticipated Discharge Date Admission Date: June 09, 2024 Subjective Patient doing well. No shortness of breath. Feels ready to go home Physical Exam Physical Exam: Constitutional: Alert, no acute distress HEENT: Mucous membranes moist. Lungs: Clear to auscultation, decreased, no wheezes rales or rhonchi CV: S1-S2, regular Abdomen: Soft, nontender, nondistended Extremities: Trace pretibial edema Neuro: No focal deficits Psych: Cooperative, normal mood Results & Data Results & Data Vital Signs (Past 12 Hours) Vital Signs Temp Pulse Pulse Resp BP Pulse Ox O2 Del Method 06/11/24 14:02 78 06/11/24 08:00 Nasal Cannula 06/11/24 07:46 36.7 C 68 20 99/62 L 96 Nasal Cannula 06/11/24 07:43 79 06/11/24 04:47 37.0 C 78 20 121/74 98 Nasal Cannula O2 Flow Rate 06/11/24 14:02 06/11/24 08:00 3 06/11/24 07:46 3 06/11/24 07:43 06/11/24 04:47 2 Diagnostic Findings Reviewed imaging, laboratory and diagnostic studies. Pertinent findings as below. Potassium 4.2 Rest of electrolytes stable Creatinine 0.9 (5) Diabetes mellitus, type II Diabetes mellitus residential insulin use: without termite exterminator helper use Diabetes mellitus complication status: with other specified complication Qualified Code(s): E11.69 - Type 2 diabetes mellitus with other specified complication (6) Hypothyroidism Hypothyroidism type: unspecified Qualified Code(s): E03.9 - Hypothyroidism, unspecified
[2024-06-11] MEDS: TORSEMIDE 20 MG TAB PO SCH (17:46)
--- NOTE | 2024-06-12 14:40 | Hospitalist Progress Note ---
Date of Service June 12, 2024 Assessment & Plan (1) Acute on chronic systolic congestive heart failure: (2) Acute systolic heart failure due to valvular disease: (3) Asymptomatic bacteriuria: (4) Severe aortic stenosis: (5) Diabetes mellitus, type II: (6) Hypothyroidism: Plan Patient presented with acute heart failure mostly due to her aortic stenosis. She is now compensated Daughter is concerned she may not be able to manage at home even with her home health care. Physical therapy was recommending rehab placement Continue oral medications Continue therapies Continue to pursue placement, patient ready for discharge when placement is available or when family comfortable returning her to home with her home health care Admission and Anticipated Discharge Date Admission Date: June 09, 2024 Subjective Patient states she is feeling well. Reports that she walks to the bathroom with minimal assistance Physical Exam Physical Exam: Constitutional: Alert HEENT: Mucous membranes moist. Lungs: Clear to auscultation, decreased, no wheezes rales or rhonchi CV: S1-S2, regular, systolic murmur Abdomen: Soft, nontender, nondistended Extremities: No significant edema Neuro: No focal deficits Psych: Cooperative, normal mood Results & Data Results & Data Vital Signs (Past 12 Hours) Vital Signs Temp Pulse Resp BP Pulse Ox O2 Del Method 06/12/24 12:25 Room Air 06/12/24 09:00 Room Air 06/12/24 07:26 36.8 C 71 18 113/62 91 Room Air 06/12/24 04:08 37.1 C 87 16 139/72 91 Room Air Diagnostic Findings Glucose was reviewed (5) Diabetes mellitus, type II Diabetes mellitus termite technician insulin use: without termite technician use Diabetes mellitus complication status: with other specified complication Qualified Code(s): E11.69 - Type 2 diabetes mellitus with other specified complication (6) Hypothyroidism Hypothyroidism type: unspecified Qualified Code(s): E03.9 - Hypothyroidism, unspecified
[2024-06-13] MEDS: bisacodyL 10 MG SUPP PR ONE (12:23)
--- NOTE | 2024-06-13 12:24 | Hospitalist Progress Note ---
Date of Service June 13, 2024 Assessment & Plan (1) Acute on chronic systolic congestive heart failure: (2) Acute systolic heart failure due to valvular disease: (3) Asymptomatic bacteriuria: (4) Severe aortic stenosis: (5) Diabetes mellitus, type II: (6) Hypothyroidism: (7) Physical deconditioning: Plan Patient presented with acute on chronic heart failure which is now stabilized and she is back to euvolemic compensated state. However patient's chronic deconditioned state exacerbated with this brief hospitalization. Physical therapy and the patient's family felt that she would be benefit from a short- term rehab stay Continue current medications Encouraged activity today Pending placement to halfway rehab when bed available and authorization obtained. Admission and Anticipated Discharge Date Admission Date: June 09, 2024 Subjective No acute events overnight Physical Exam Physical Exam: Constitutional: Alert, sitting in chair HEENT: Mucous membranes moist. Lungs: Clear to auscultation, decreased, no wheezes rales or rhonchi CV: S1-S2, regular Abdomen: Soft, nontender, nondistended Extremities: No significant edema Neuro: No focal deficits Psych: Cooperative, normal mood Results & Data Results & Data Vital Signs (Past 12 Hours) Vital Signs Temp Pulse Resp BP Pulse Ox O2 Del Method 06/13/24 08:00 36.9 C 62 18 125/79 97 Room Air Diagnostic Findings Glucose reviewed (5) Diabetes mellitus, type II Diabetes mellitus long term acute care registered nurse insulin use: without correction use Diabetes mellitus complication status: with other specified complication Qualified Code(s): E11.69 - Type 2 diabetes mellitus with other specified complication (6) Hypothyroidism Hypothyroidism type: unspecified Qualified Code(s): E03.9 - Hypothyroidism, unspecified
[2024-06-13] MEDS: bisacodyL 5 MG TABEC PO PRN (21:00)
--- NOTE | 2024-06-14 15:43 | Hospitalist Progress Note ---
Date of Service June 14, 2024 Assessment & Plan (1) Acute on chronic systolic congestive heart failure: (2) Acute systolic heart failure due to valvular disease: (3) Asymptomatic bacteriuria: (4) Severe aortic stenosis: (5) Diabetes mellitus, type II: (6) Hypothyroidism: (7) Physical deconditioning: Plan Patient in decompensated heart failure state. Patient reports she is steadily increasing her activity even here over the weekend. Patient observed using her rollator and walking in the shaw earlier this morning. Therapy updated evaluation today-Patient initially ambulated 20 feet on first try than 30 feet on second try Case management working with family to obtain possible rehab placement Continue to encourage activity here Check labs in a.m. Admission and Anticipated Discharge Date Admission Date: June 09, 2024 Subjective No acute issues overnight. Patient denies any chest pain or shortness of breath. Physical Exam Physical Exam: Constitutional: Alert, sitting in chair HEENT: Mucous membranes moist. Lungs: Clear to auscultation, decreased, no wheezes rales or rhonchi CV: S1-S2, regular, systolic murmur Abdomen: Soft, nontender, nondistended Extremities: No significant edema Neuro: No focal deficits Psych: Cooperative, normal mood Results & Data Results & Data Vital Signs (Past 12 Hours) Vital Signs Temp Pulse Resp BP Pulse Ox O2 Del Method 06/14/24 14:08 36.5 C 66 18 140/76 95 Room Air 06/14/24 07:08 36.9 C 61 18 95/60 L 95 Room Air Diagnostic Findings Glucose reviewed (5) Diabetes mellitus, type II Diabetes mellitus detention insulin use: without intermediate teacher use Diabetes mellitus complication status: with other specified complication Qualified Code(s): E11.69 - Type 2 diabetes mellitus with other specified complication (6) Hypothyroidism Hypothyroidism type: unspecified Qualified Code(s): E03.9 - Hypothyroidism, unspecified
[2024-06-15 07:03] LABS: BUN Creatinine Ratio 25.9 (10-20); Calcium 9.1 mg/dl (8.6-10.3); Creatinine Clr Calc Pharmacy 40.1 ml/min; Potassium 3.7 mmol/L (3.5-5.1)
[2024-06-15 07:37] VITALS: RESP 18; TEMP 97.7; O2SAT 97
--- NOTE | 2024-06-15 13:44 | Discharge Summary ---
Discharge Summary Date of Service June 15, 2024 Principal Dx & Hospital Course #1 = Principal Diagnosis (1) Acute on chronic systolic congestive heart failure: (2) Acute systolic heart failure due to valvular disease: (3) Asymptomatic bacteriuria: (4) Severe aortic stenosis: (5) Diabetes mellitus, type II: (6) Hypothyroidism: (7) Physical deconditioning: Plan Patient presenting the emergency room with evidence of decompensated heart failure. Patient was admitted to the hospital. She was diuresed with IV diuretics. She responded well to this intervention. Cardiology consultation was obtained and they agreed with ongoing IV diuresis.Her echocardiogram was updated and showed severe aortic stenosis. This is the most likely etiology for her ongoing heart failure. She was also questioning urinary tract infection. Initially given some antibiotics. Ultimately determined that this was a asymptomatic bacteriuria and did not need antibiotic treatment. Patient was able to be transition to oral diuretics. She has chronic ambulatory dysfunction and deconditioning. She was seen by physical therapy and Occupational Therapy. They recommend possible short-term rehab before returning home. Patient already does have 24-hour caregivers. However we did pursue possible placement. Patient continued to remain stable on the oral torsemide dose throughout the weekend. Her ability to ambulate improved on the over the weekend. However still needed some contact-guard to minimal assistance. Physical therapy continue to recommend rehab. However insurance review initially denied SNF rehab. Peer to peer was performed attempted to make an argument for short-term rehab stay. SNF rehab again was denied peer to peer. They recommended continuing home therapies with her home support services and or potentially considering a rehab stay using her Medicare B services to pay for the therapy but they would have to pay for room and board. Daughter was made aware of these options. She chose to take the patient home with home services. Day of discharge patient was doing well. No significant edema lower extremities. She was on room air. She was able to ambulate to her room. She was tolerating adjustments of the torsemide dose. She can follow-up with her outpatient providers. Notes For Next Care Provider Continue to monitor heart failure, adjust medications as needed Medication Changes From Visit Torsemide dose increased Admission HPI Per Admitting Provider Patient is 89 year old female with PMH combined CHF, severe aortic stenosis, HTN, DM II, CKD III, hypothyroidism, lymphedema, s/p pacemaker, nocturnal hypoxia, History ESBL UTI,recurrent UTI on suppressive therapy and others listed below presented to ER with complaint of shortness of breath and weight gain x 1 week. Patient's daughter provides most of history. Patient's daughter states the past week has noted patient to be generally more weak with bilateral leg weakness. Reports ambulates with wheeled walker at baseline however has not been as ambulatory. Is currently receiving PT and OT at home. Daughter also noted patient seemed a little bit more forgetful and confused. Patient had stated had some dysuria couple days ago. She is concerned patient had UTI so had urine culture obtained 06/07/2024. She reports she was contacted today and told patient likely has resistant bacterial UTI present to ER for IV antibiotics. Daughter also reports for the past week patient has had increased shortness of breath and has had steady weight gain. States this is a nonproductive cough. Normally is on torsemide 60 mg twice daily however past 2 days with increased shortness of breath and weight gain attempted 80 mg twice daily without relief. Patient denies any chest pain. Denies fever/chills, diaphoresis, N/V/D/C, GRISSOM, dizziness, syncope, fall, vision changes, neck pain, palpitations, sore throat, otalgia, rhinorrhea, abdominal pain, paresthesias, rashes, hematuria Admission Exam Per Admitting Provider See H&P Discharge Exam Constitutional: Alert, pleasant HEENT: Mucous membranes moist. Lungs: Decreased breath sounds, few faint crackles CV: S1-S2, regular, systolic murmur Abdomen: Soft, nontender, nondistended Extremities: No significant edema Neuro: No focal deficits Psych: Cooperative, normal mood Updated Medication List Medication Instructions Recorded Confirmed Type d-mannose 500 mg capsule 1,000 mg PO AMPM 10/22/22 06/09/24 History mirabegron 25 mg tablet,extended 25 mg PO QAM 10/22/22 06/09/24 History release 24 hr (Myrbetriq) omeprazole 20 mg capsule,delayed 20 mg PO DAILYBB 10/22/22 06/09/24 History release spironolactone 25 mg tablet 12.5 mg PO QAM 10/22/22 06/09/24 History (Aldactone) bisacodyl 5 mg tablet,delayed 10 mg PO DAILY PRN Constipation 03/21/23 06/09/24 History release (Dulcolax (bisacodyl)) cholecalciferol (vitamin D3) 25 1,000 unit PO QAM 03/21/23 06/09/24 History mcg (1,000 unit) capsule colchicine 0.6 mg tablet 0.6 mg PO BID PRN gout attacks 03/21/23 06/09/24 H istory cyanocobalamin (vitamin B-12) 1,000 mcg PO QAM 03/21/23 06/09/24 History 1,000 mcg tablet (Vitamin B-12) dulaglutide 0.75 mg/0.5 mL 0.75 mg subcut WK 03/21/23 06/09/24 History subcutaneous pen injector (Trulicity) glucosamine-chondroitin 500 mg-400 1 tab PO AMPM 03/21/23 06/09/24 History mg tablet levothyroxine 88 mcg tablet 88 mcg PO DAILYBB 03/21/23 06/09/24 History magnesium oxide 400 mg (241.3 mg 400 mg PO DAILY 03/21/23 06/09/24 History magnesium) tablet meclizine 25 mg tablet 25 mg PO TID PRN Dizziness 03/21/23 06/09/24 History potassium chloride 20 mEq 20 meq PO AMHS 03/21/23 06/09/24 History tablet,extended release(part/cryst) promethazine-DM 6.25 mg-15 mg/5 mL 5 ml PO QID PRN persistant cough 03/21/23 06/09/24 History oral syrup benzonatate 100 mg capsule 100 mg PO TID PRN Cough 12/09/23 06/09/24 History conjugated estrogens 0.625 mg/gram 1 applic vaginal HS 12/09/23 06/09/24 History vaginal cream (Premarin) docusate sodium 100 mg capsule 300 mg PO BID 12/09/23 06/09/24 History metolazone 2.5 mg tablet 2.5 mg PO DAILY PRN FLUID 12/09/23 06/09/24 History RETENTION/LAST RESORT ondansetron HCl 4 mg tablet 4 mg PO Q6H PRN NAUSEA/VOMITING 12/09/23 06/09/24 History metoprolol succinate 25 mg 25 mg PO QPM #30 tabs 12/17/23 06/09/24 Rx tablet,extended release 24 hr diclofenac sodium 1 % topical gel 2 g topical TID KNEE PAIN 04/24/24 06/09/24 History nitrofurantoin 100 mg PO HS 04/24/24 06/09/24 History monohydrate/macrocrystals 100 mg capsule nystatin 100,000 unit/gram topical 1 applic topical BID PRN UNDER 04/24/24 06/09/24 History powder BREASTS/ABD FOLDS NEEDED phenazopyridine 100 mg tablet 100 mg PO TID PRN BLADDER PAIN 04/24/24 06/09/24 History torsemide 20 mg tablet 80 mg (4 x 20 mg) PO BID17 30 days 06/15/24 Rx #120 tabs Hospital Stay Data Consultations 06/09/24 18:07 ED Decision to Admit Stat 06/10/24 08:00 Consult Cardiology Routine Diagnostic Imagining Performed Reviewed imaging, laboratory and diagnostic studies. Pertinent findings as below. Echocardiogram shows ejection fraction 45 to 50% with severe calcific aortic valve stenosis Sodium 138 Potassium 3.7 Creatinine 1.12 Glucose 108 Pending Results Patient Have Any Pending Studies at Discharge: No Discharge Instructions Given to Patient (Per Discharging Provider) Call 911 and go to the Emergency Room if: * You have tightness or pain in your chest that does not go away with rest or Nitroglycerin * You are very short of breath even with rest Call your doctor if any of the following symptoms or problems start or get worse: * Shortness of breath or difficulty breathing * Wake up at night short of breath * Chest pain * Cough * Swelling of your hands, fee, or legs * More fatigued or tired with your normal activity * Palpitations - sudden fast heart beats WEIGHT * Weigh yourself every morning after using the bathroom. * Use the same scale. * Wear the same amount of clothing. * Write your weight down on your chart. * Call your doctor if you gain more than 2-3 pounds in 1-2 days. MEDICATIONS * Use this discharge instruction sheet for instructions. * Take your medications at the time your doctor ordered. * Do not skip a dose of your medicines. * If you miss a dose of medicine, take as soon as possible, but DO NOT DOUBLE A DOSE. * Read your medicine information when you get home. * Know all of the side effects of your medicine. * Call your doctor's office if you have any side effects. * Be sure all of your doctors know what medicine and herbs you take (including cold, flu, and herbal medicine). * Pain Medicine: If you do not get relief from your pain, please call your doctor for help. Take the following with you to your follow-up doctor appointments: * Weight Chart * Medication List * List of questions Do not drink excessive alcohol, beer or wine. Home Health Attestation I certify that this patient is under my care and that I, or a physicians acute care certified nursing assistant working with me, had a face to-face encounter that meets the home health [id number] encounter requirements with this patient. The encounter with the patient was in whole, or in part, for the following medical condition, which is the primary reason for home health care (list medical condition): I certify that, based on my findings, the following services are medically necessary home health services: My clinical findings support the need for the above services because: OT Assess ADL Status and Restore Function w ADLs PT Eval for Safety and Mobility Skilled Nsg Assessment Further, I certify that my clinical findings support that this patient is homebound (i.e. absences from home require considerable and taxing effort and are for medical reasons or [employer] services or infrequently or of short durati on when for other reasons) because: Certification for Home Health Services: Based on the above findings, I certify that this patient is confined to the home and needs intermittent group home care, physical therapy and/or speech therapy or continues to need occupational therapy. The patient is under my care, and I have initiated the establishment of the plan of care. This patient will be followed by a physician who will periodically review the plan of care. Total Time Total Time Spent Total Time Spent (In Minutes): 43
[2024-06-15 14:54] VITALS: BP 120/60; PULSE 68
== END 2024-06-15 15:53 | disposition home health service (06) | DRG 291 ==
LOC: ED 16:36 → 2N 18:56 → SUATTDRO 18:56 → 2N 21:21 → 3E 06-12 11:14

== ENCOUNTER 2024-07-04 18:37 | Inpatient (IN) ==
--- OUTSIDE RECORDS SUMMARY | 2024-07-04 18:46 | External Medical Summary | Summary of Care ---
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; Morbid obesity with BMI of 45.0-49.9, adult ([facility]); Impaired mobility and ADLs Allergies Active Allergy Reactions Criticality Noted Date Comments Adhesive Tape Medium 01/30/2022 Ibuprofen Hives 01/13/2012 Aspirin Hives,Rash 09/15/2000 Sulfamethoxazole-Trimeth oprim Nausea/vomiting,Othe r (Please comment) 10/27/2020 Dizziness Ciprofloxacin Hcl 06/16/2019 Hoarse, dizzy,disoriented Morphine 09/21/2021 Blacked out Penicillins Hives,Rash 09/15/2000 Prednisone 12/30/2017 Weakness/memory changes/blurred vision documented as of this encounter (statuses as of 06/18/2024) Medications Medication Sig Dispensed Refills Start Date [...] TIMES DAILY 400 Strip 1 3 Active DominoTouch Delica Plus [id number] s:Type 2 diabetes mellitus with hemoglobin A1c goal of less than 8.0% ([facility]) Test up to two times daily or as directed by [facility] pharmacist 200 Each 3 3 Active [...] evening meals. 180 Tablet 1 4 Active Ondansetron HCl 4 MG Oral [...] XL)Indications:Non- ischemic cardiomyopathy (HCC),Coronary artery disease involving sauk-suiattle coronary artery of sa[place]-su[place] heart without angina pectoris,HTN, goal below 140/90 [...] mouth every night at bedtime. 4 Active Clotrimazole 1 % External Cream (Lotrimin)Indicatio ns:Candidal intertrigo APPLY TO THE AFFECTED AREA(S) TWICE DAILY FOR FOURTEEN DAYS 60 g 2 4 Active Trulicity 0.75 MG/0.5ML Subcutaneous Solution Pen-injector (Dulaglutide) Inject 0.75 mg under the skin once a week. 0.5 mL 3 4 Active Torsemide 20 MG Oral Tablet (Demadex) Take 4 Tablets by mouth in the morning and 4 Tablets in the evening. 4 Active Torsemide 20 MG Oral Tablet (Demadex)Indication s:Heart failure, systolic, due to idiopathic cardiomyopathy (HCC) Take 3 Tablets by mouth in the morning and 3 Tablets in the evening. 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 05/05/2024 Anemia 05/05/2024 Full code status 05/03/2024 Recurrent UTI (urinary tract infection) 12/17/19 24 Impaired mobility and ADLs 11/12/2022 Ventral hernia without obstruction or gangrene 1 10/08/2020 History of recurrent UTI (urinary tract infectio [...] heart and kidne y disease with chronic combined systolic and diastolic congestive heart failure and stage 3a chronic kidney disease 11/28/2020 Overview: Last Echo: [...] Continue synthroid Coronary artery disease invo lving sauk-suiattle coronary artery of sa[place]-suiattle heart without angina pectoris 07/03/2012 Overview: 60% [...] as of this encounter (statuses as of 06/18/2024) Resolved Problems Problem Noted Date Diagnosed Date Resolved Date 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/26/2023 06/17/2024 Transient confusion 01/30/2023 06/17/20 Last Assessment & Plan: Patient has been progressively more confused over the last week despite treatment with Keflex 500 mg three times daily for urinary tract infection. Urine still is cloudy. It is possible that the UTI persists. Will do an infectious workup. -BMP, CBC, UA, stool studies Acute cystitis without hematuria 01/24/2023 03/22/2024 Last [...] Assessment & Plan: Improving -continue current regimen Trochanteric bursitis of right hip 07/10/2021 06/17/2024 Stage 3a chronic kidney disease 07/03/2020 10/05/2020 [...] as of this encounter (statuses as of 06/18/2024) Immunizations Name Administration Dates Next Due COVID-19 mRNA, LNP-s, No Pre serve, 2-Dose Series (MetaMaterials) 08/29/2021,10/23/2020,10/02/2020 COVID-19, MRNA-LNP, 23-24, P F, 30 MCG/0.3 mL, 12 YRS AND ABOVE, IM (Noribachi-Comirnat) 08/04/2023 Covid-19, Mrna, Lnp-s, Pf, B ivalent, 30 Mcg, IM, 12 yrs and above (MetaMaterials) 08/02/2022 Pneumococcal Conjugate Vacc, 13 Valent (Prevnar) [...] Answer Date Recorded PHQ-2 Score 0 05/24/2019 Hunger Vital Sign Answer Date Recorded Within the past 12 months, y ou worried that your food would run out before you got the money to buy more. Never true 06/09/20 24 Within the past 12 months, t he food you bought just didn't last and you didn't have money to get more. Never true 2024 Childcare Answer Date Recorded Do you feel overwhelmed with taking care of a child, family member or friend? No 2024 Does your family need help f inding childcare? (Household - for ages 0-17 years) Not on file 2024 Clothing Answer Date Recorded Have you been unable to get clothing when it was really needed? No 2024 Is your family able to get c lothes or diapers when needed? (Household - for ages 0-17 years) Not on file 2024 Personal Safety Answer Date Recorded Do you feel unsafe or have concerns for your saf ety? No 2024 Do you have concerns for you r family's safety? (Household - for ages 0-17 years) Not on file 2024 Utilities Answer Date Recorded Do you have trouble paying y our heating, water, or electric bill? No 2024 Is your family able to pay t he heat, water, or electric bill? (Household - for ages 0-17 years) Not on file 2024 Does your family have access to good internet? (Household - for ages 0-17 years) Not on file 2024 Employment Status Answer Date Recorded Are you unemployed or without regular income? No 2024 Does the household have a re gular source of income? (Household - for ages 0-17 years) Not on file 2024 Social Connections Answer Date Recorded How often do you feel lonely or isolated from th ose around you? Never 2024 Financial Resource Strain Answer Date R ecorded Do you have any trouble payi ng for your medications, or do you think you might in the future? No 2024 Does your family have troubl e paying for medicine? (Household - for ages 0-17 years) Not on file 2024 Transportation Needs Answer Date Record ed Do you have trouble getting a ride to medical visits or work? (Adult - for ages 18 years and over) Not on file 2024 Does your family have a hard time getting a ride to doctors visits? (Household - for ages 0-17 years) Not on file 2024 Has lack of transportation k ept you from medical appointments, meetings, work, or from getting things needed for daily living? Check all that apply. No 2024 Do you (or your family) have trouble finding or paying for a ride (transportation)? (Household - for ages 0-17 years) Not on file 2024 Housing Stability Answer Date Recorded Do you currently live in a s helter or have no steady place to sleep at night? No 2024 Do you think you are at risk of becoming homeless? (Adult - for ages 18 years and over) Not on file 2024 Does your family worry about paying for your home or becoming homeless? (Household - for ages 0-17 years) Not on file 1 Are you homeless or worried that you might be in the future? No 2024 Are you (or your family) verona eless or worried that you might be in the future? (Household - for ages 0-17 years) Not on file Food Insecurity Answer Date Recorded Do you need food for this week? No 2024 Are you able to get enough f ood for your family? (Household - for ages 0-17 years) Not on file 2024 Does your family need food t his week? (Household - for ages 0-17 years) Not on file 2024 Do you always have enough fo od for your family? (Household - for ages 0-17 years) Not on file 2024 Sex and Gender Information Value Date Recorded Sex Assigned at Not on file Gender Identity Not on file Sexual Orientation Not on file Job Start Date Occupation Industry Not on file Not on file Not on file documented as of this encounter Patient Instructions * Patient Instructions* Verónica Benavides MD - 06/18/2024 2:24 PM EDT Taking Medicine Safely Medicine is [...] street drugs, herbs, supplements, or even some [id number] medicines can be harmful. Talk to your [...] to get rid of medicine: Call your [facility] or [facility]'s household trash and recycling service and ask if a drug take-back program is available in your community. Call your local pharmacy and ask the right way to get rid of the medicine. Go to http://www.fda.gov/ForConsumers/ConsumerUpdates/lkl893465 to learn how to get rid of [...] brand-name medicine, unless their doctor says otherwise. [id number] [facility], [address] [place] [address], [place] [address]. All rights reserved. This information is not [...] best to keep a sense of humor. 4776-1530 [facility], [address] [place] [address]. All rights reserved. This information is not [...] and pharmacist about all the prescription and xhxe-ioz-[id number] medicines you take.This includes vitamins and herbal remedies. Tell your doctor and pharmacist if you have any medical conditions or allergies to any medicine or food, or if you are or . Keep a list of all your medicines. Use the sample to the right as a guide for the type of information needed. 4913-0683 [facility], [address] [place] [address], [place] [address]. All rights reserved. This information is not intended as a substitute for professional medical care. Always follow your healthcare professional's instructions. documented in this encounter Progress Notes * Verónica Benavides MD - 06/18/2024 2:24 PM EDT SUBJECTIVE: Regla Castano is a 89 year old female. Chief Complaint Patient presents with Hospital Follow-Up Hospital Follow-Up Recent Admission: Patient was recently admitted to [facility] on 06/09/24. The date of discharge was 06/15/24. Discharge report received and reviewed. HPI: Brief Clinical History Ms. Castano is a 89 year old female last seen in [facility] on 06/10/[address] [facility] Manager She has a h/o the following chronic conditions indicated on the problem list: Chronic Conditions First degree atrioventricular block Full code status Heart failure, systolic, due to idiopathic cardiomyopathy (HCC) Type 2 diabetes mellitus with hemoglobin A1c goal of less than 8.0% ([facility]) Type 2 diabetes mellitus with stage 3b chronic kidney disease, without long-term current use of insulin (HCC) Patient location: HOME. I was in a hospital or clinic location. After connecting through televideo,patient was verified with two unique identifiers. Patient (or authorized legal insurance verification representative) was then informed that this was a Telemedicine visit and being conducted confidentially over secure lines. Methods to assure confidentiality were taken. Patient acknowledged consent and understanding of pr ivacy and security of the Telemedicine visit. The patient agreed to participate. Admitted to [facility] from 06/09/24-06/15/24 with acute exacerbation of CHF and ESBL E Coli UTI. Patientis following with [facility] and had UTI symptoms and urine grew two different strains of E Coli and both were ESBL organisms. Patient with long history of recurrent UTIs and follows with urology. Has standing urine order at the lab from urology and is on Macrobid suppression. She was also hermosillo ving shortness of breath and weight gain despite outpatient diuretic titration and was directed to the ED for evaluation. In the ED, CBC was notable for hemoglobin of 10.3 with normal WBC and platelets. Creatinine was 0.99. Respiratory panel was negative. UA with 3+ leuk est and >50 WBC but negative nitrites. CXR showed cardiomegaly with pulmonary vascular congestion. Patient was admitted and diuresed with IV Lasix. She was seen by cardiology. Echo showed EF of 45-50% with severe calcific aortic stenosis. She had been evaluated for TAVR in the past but is not a candidate. Cardiology recommended considering palliative care consult and to continue with IV diuresiswhile admitted. Her diuresis and medications have been limited by hypotension. She was discharged on increased dose of torsemide 80 mg twice daily. She does follow with cardiology for pacemaker checks but has not been seen in the clinic for a while due to how difficult it is to get patient out of the house. Daughter does not want to schedule any more outside appointments than she really has to. She was treated with IV antibiotics, which were complete prior to discharge. Was recommended for rehab but insurance denied stay despite peer to peer. She was discharged to home on 06/15/24. Daughter states her weight was 230 pounds on discharge from the hospital and daughter states her legs looked great. The day after discharge, she was 231.6. It was 233 yesterday but with clothes on. Today it was 233-235 without clothing on. She is still a little bit short of breath. Per daughter, her legs are still less swollen than her usual. Daughter is concerned that she does not diurese as much with oral diuretics as she does in the hospital and with a catheter in. She states she lost 10 pounds in fluid while admitted. She is short of breath but [facility] Following with urology for recurrent UTIs. and is on nitrofurantoin suppression. Daughter is not sure if she empties her bladder the whole way because she does not seem to void much with the diuretic. States she has heard about catheters but she also does not really want to pursue that at this time. Daughter would like a new wheelchair. She has a very old chair that has a broken brake. Patient is able to walk from her chair to the bathroom but then has to come back to her chair in the wheelchairbecause she gets weak and short of breath. She has poor mobility and needs a wheelchair to get around her house. She also has severe GARNICA related to severe aortic stenosis and CHF. Patient was referred to hematology for anemia. Has been running in the low 9's at times. Her iron, B12, folic acid, and TSH have been normal. Epo level was high. Daughter states she spoke with a nurse at the hematology department who did not feel it would be worth scheduling Epogen injections because her hemoglobin was too close to 10. Also discussed possible need for bone marrow biopsy and patient and daughter are not willing to have this done so she declined to schedule. She is being seen by [facility] on 06/21/24. Patient Active Problem List Diagnosis GENERAL OSTEOARTHROSIS Hypothyroidism DYSLIPIDEMIA, GOAL LDL BELOW 100 Aspirin allergy LBBB (left bundle branch block) First degree atrioventricular block Coronary artery disease involving sauk-suiattle coronary artery of sauk-suiattle heart without angina pectoris ACEI/ARB contraindicated Type 2 diabetes mellitus with hemoglobin A1c goal of less than 8.0% ([facility]) Non-ischemic cardiomyopathy ([facility]) Heart failure, systolic, due to idiopathic cardiomyopathy ([facility]) Aortic valve stenosis 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, without long-term current use of insulin ([facility]) Lymphedema of both lower extremities Benign paroxysmal vertigo of both ears Gastroesophageal reflux disease without esophagitis Type 2 diabetes mellitus with mild nonproliferative diabetic retinopathy without macular edema, right eye ([facility]) 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 OneTouch Verio w/Device Kit Use up to [...] TO FOUR TIMES DAILY 400 Strip 1 DominoTouch Delica Plus [id number] Test up to two times daily or as directed by [facility] pharmacist 200 Each 3 Estrogens Conjugated 0.625 MG/GM Vaginal Cream (Premarin) Administer 0.5 g into the vagina every night at bedtime. Pea-sized amount around vulvar area nightly 30 g 5 DIURETIC TITRATION PLAN If no improvement on [...] morning and evening meals. 180 Tablet 1 Ondansetron HCl 4 MG Oral Tablet Take [...] times a day as needed for Cough. Nitrofurantoin Monohyd Macro 100 MG Oral Capsule (Macrobid) Take 1 Capsule by mouth every night at bedtime. Clotrimazole 1 % External Cream (Lotrimin) APPLY TO THE AFFECTED AREA(S) TWICE DAILY FOR FOURTEEN DAYS 60 g 2 Trulicity 0.75 MG/0.5ML Subcutaneous Solution Pen-injector (Dulaglutide) Inject 0.75 mg under the skin once a week. 0.5 mL 3 No current facility-administered medications for this visit. Current and discharge medications have been reconciled. Review of patient's allergies indicates: Allergen Reactions Adhesive Tape Advil [Ibuprofen] Hives Aspirin Hives and Rash Bactrim [Sulfamethoxazole-Trimethoprim] Nausea/vomiting and Other (Please comment) Dizziness Ciprofloxacin Hcl Hoarse, dizzy,disoriented Morphine Blacked out Penicillins Hives and Rash Prednisone Weakness/memory changes/blurred vision Results for orders placed or performed in visit on 06/09/24 COMPREHENSIVE METABOLIC PANEL Result Value Ref Range BUN 19 6 - 20 mg/dL CREATININE 0.9 0.5 - 1.0 mg/dL EGFR 62 >=60 mL/min SODIUM 140 135 - 146 mmol/L POTASSIUM 3.7 3.5 - 5.1 mmol/L CHLORIDE 101 98 - 107 mmol/L CO2 26 22 - 32 mmol/L ANION GAP 13 7 - 15 mmol/L GLUCOSE 214 (H) 70 - 120 mg/dL Albumin 3.6 (L) 3.8 - 5.0 g/dL AST 16 10 - 35 U/L Alkaline Phosphatase 94 35 - 130 U/L Bilirubin, Total 0.3 <=1.2 mg/dL CALCIUM 8.1 (L) 8.4 - 10.2 mg/dL Protein 6.2 6.0 - 8.3 g/dL ALT 6 (L) 10 - 35 U/L MAGNESIUM Result Value Ref Range Magnesium 1.8 1.5 - 2.6 mg/dL *Note: Due to a large number of [...] orders placed or performed in visit on 05/26/24 CBC Result Value Ref Range WBC 7.42 4.00 - 10.80 K/uL RBC 2.47 3.85 - 5.15 M/uL HGB 9.6 (L) 12.0 - 15.3 g/dL HCT 30.5 (L) 36.0 - 45.2 % MCV 123.5 81.5 - 97.5 fL MCH 38.9 27.0 - 34.0 pg MCHC 31.5 32.0 - 36.0 g/dL RDW 14.6 11.5 - 15.5 % PLT 338 140 - 400 K/uL MPV 10.0 6.6 - 11.1 fL nRBCs 0 <=0 /100 WBCs Hemoglobin Results: Lab Results Component Value Date/Time HGB 9.6 (L) 05/26/2024 10:29 AM HGB 8.6 (L) 05/07/2024 05:35 AM HGB 9.0 (L) 05/05/2024 05:38 AM HGB 12.5 08/04/2020 12:02 PM HGB 11.2 (L) 07/14/2020 12:47 PM HGB 11.6 (L) 07/07/2020 11:05 AM Creatinine Results: Lab Results Component Value Date/Time CREATININE - [facility] 0.9 2024 03:09 PM CREATININE - [facility] 1.0 05/26/2024 10:29 AM CREATININE - [facility] 1.3 (H) 05/07/2024 05:35 AM CREATININE - [facility] 1.1 (H) 09/13/2020 [...] URINE - [facility] 13 01/16/2017 02:20 PM OBJECTIVE: There were no vitals taken for this visit. Review Of Systems: Skin: pt denies, new or changing moles, pigmentation change, rash, scaling, itching, bruising, lumps or bumps, hair changes, nail changes Eyes: negative Ears/Nose/Throat: pt denies:, deafness, tinnitus, frequent URI's, sinus trouble Respiratory: +as per HPI Cardiovascular: +as HPI Gastrointestinal: pt. denies:, abdominal pain, bloating or excess gas, dysphagia, nausea, heartburn, blood in stool or black stools, diarrhea Genitourinary: +recurrent UTIs Musculoskeletal: +OA and debility Neurologic: pt denies:, headaches, syncope, and seizures Psychiatric: pt denies:, sleep disturbance, anxiety, nervousness, and depression Hematologic/Lymphatic/Immunologic: +anemia of unknown cause Endocrine: +hypothyroidism and diabetes PHYSICAL EXAM: General: alert, no distress, well nourished, well developed, obese, and seated on a recliner Neuro Exam: alert & oriented x 3 with fluent speech ASSESSMENT: Hospital discharge follow-up (Primary)--reviewed hospital records. - DISCH MED RECON CUR MED LIS Nonrheumatic aortic valve stenosis--severe and inoperable. Contributing to CHF exacerbations and hypotension limits medical management. 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 Daughter notes weight has increased by about 3 pounds since discharge, although her discharge weight was 230 pounds on the hospital scale so difficult to compare to home scale. Daughter notes she does not urinate as much with oral torsemide as when she gets IV diuretics and discussed that this is to be expected. Recommend she follow-up with cardiology but daughter is not able to get her into the office and prefers not to schedule. Unable to check edema or lung sounds on Video visit. Is being seen by [facility] on 06/21/24. Will not increase torsemide further today as already on high dose. Is also on spironolactone 12.5 mg daily. Recommend low salt intake and continuing with daily weights. Anemia, unspecified type--declines hematology. Cannot get to the office appointment that would be needed to have Epogen injections and does not want bone marrow biopsy done. Iron and vitamin levels normal. Likely chronic disease but could have bone marrow process as well. Recurrent UTI (urinary tract infection)--continue to follow-up with urology as scheduled. On Macrobid suppression. Frequently grows ESBL E Coli and suspect she is colonized with this and not all of her urine cultures reflect a true UTI but rather asymptomatic bacteruria. Type 2 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 disease, without long-term current use of insulin ([facility])--diabetes controlled with Trulicity 0.75 mg weekly. Biventricular cardiac pacemaker in situ--stable. ESBL E. 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--following with urology. On nitrofurantoin suppression and has standing urine order at lab. Morbid obesity with BMI of 45.0-49.9, adult ([facility])--sedentary and debilitated. Impaired mobility and ADLs--requires use of wheelchair for mobility in the home. PLAN: Continue present medication(s): Immunization(s) ordered: To have influenza vaccine through [facility] Patient education: Discussed CHF and diuretics at length. Continue torsemide 80 mg twice daily but would recommend seeing cardiology for assistance in management of her CHF complicated by severe inoperable and CKD. Hypotension limits medical management. Continue follow-up with [facility]. Follow-up with urology for recurrent UTIs. Follow up as scheduled. I spent a total of 40-54 minutes (exact time 52 mins) minutes on the date of service in preparation, delivery, and documentation of the care provided to Regla Castano excluding any time spent in performance of separately billed services. Verónica Benavides MD documented in this encounter Plan of Treatment Upcoming Encounters Date Type Department Care Team (Late st Contact Info) Description 06/21/2024 3:00 PM EDT Home Visit [facility] [place] [address] [place] [address] Brandt Santacruz PA-C [address] [place] [address] 10/01/2024 1:00 PM EST Telemedicine Family Medicine [address] [place] [phone] Kusum Jones CRNP [address] [place] [address] [place] [address] 10/13/2024 11:30 AM EST Telemedicine Urology, [facility] [address] [place] [address] Chandler Pena MD [address] [place] [address] 11/24/2024 1:40 PM EDT Office Visit Dermatology [address] [place] [address] Sheryl Pena PA-C [address] [place] [address] [place] [address] 04/18/2025 1:20 PM EDT Telemedicine Family Medicine [address] [place] [phone] Verónica Benavides MD [address] [place] [address] [place] [address] Health Maintenance Due Date Last Done Comments [...] Additional history exists CKD PHOS USE SMARTSET 87414 05/05/202504/25, 04/30/2024, 04/02/2024, Additional history exists CKD HGB USE SMARTSET 98117 05/26/202505/26, 05/26/2024, 05/07/2024, Additional history exists Pneumococcal [...] Hospital discharge follow-up- Primary Other follow-up examination Nonrheumatic aortic valve stenosis Aortic valve disorders 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
--- OUTSIDE RECORDS SUMMARY | 2024-07-04 18:46 | External Medical Summary | Summary of Care ---
Author Name Unknown Organization [facility] Address [address] [place] [address] Phone [phone] Care Team Providers Care Technology Architect Name Role Phone Verónica Benavides MD Primary Care Provide r Reason for Visit * Reason Onset Date Comments Home Health 06/30/2024 Encounter Details Date Type Department Care Team (Late st Contact Info) Description 06/30/2024 Telephone Family [address] [phone] Verónica Benavides MD [address] [place] [address] [place] [address] Home Health Allergies Active Allergy Reactions Criticality Noted Date Comments Adhesive Tape Medium 01/30/2022 Ibuprofen Hives 01/13/2012 Aspirin Hives,Rash 09/15/2000 Sulfamethoxazole-Trimeth oprim Nausea/vomiting,Othe r (Please comment) 10/27/2020 Dizziness Ciprofloxacin Hcl 06/16/2019 Hoarse, dizzy,disoriented Morphine 09/21/2021 Blacked out Penicillins Hives,Rash 09/15/2000 Prednisone 12/30/2017 Weakness/memory changes/blurred vision documented as of this encounter (statuses as of 06/30/2024) Medications Medication Sig Dispensed Refills Start Date [...] Strip 1 05/30/2023 Active OneTouch Delica Plus [id number] :Type 2 diabetes mellitus with hemoglobin A1c [...] If no improvement on day 3, contact [facility] for possible home visit 1 [...] in the morning. 30 Capsule 05/12/2024 Active Ondansetron HCl 4 MG Oral [...] cardiomyopathy (HCC),Coronary artery disease involving [place] coronary artery of [place] heart without angina pectoris,HTN, goal below 140/90 [...] mouth every night at bedtime. 05/21/2024 Active Clotrimazole 1 % External Cream (Lotrimin)Indication s:Candidal intertrigo APPLY TO THE AFFECTED AREA(S) TWICE DAILY FOR FOURTEEN DAYS 60 g 2 05/25/2024 Active Trulicity 0.75 MG/0.5ML Subcutaneous Solution Pen-injector (Dulaglutide) Inject 0.75 mg under the skin once a week. 0.5 mL 3 06/07/2024 Active Torsemide 20 MG Oral Tablet (Demadex) Take 4 Tablets by mouth in the morning and 4 Tablets in the evening. 06/18/2024 Active Potassium Chloride Laura ER 20 MEQ Oral Tablet Extended Release Take 1 Tablet by mouth 2 times a day with morning and evening meals. 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 Last Assessment & Plan: [facility] Triage Call: Reviewed last C&S [...] and stage 3a chronic kidney disease 11/28/2020 Last Assessment & Plan: "RED FLAG" HF Symptoms: Increased dyspnea on exertion Lethargy Decreased appetite Medication Regimen: Beta Berta Therapy: Metoprolol Succinate (ER) MARIO Inhibitor/ARB Therapy: No MARIO/ARB/ARNI secondary to: hypotension Diuretic therapy: Torsemide Aldactone SGLT2 Inhibitor: No Current SGLT2 (Describe in the Comments) Remote Patient Monitoring Vendor: No Connected RPM Device(s): Traditional Scale Traditional Pulse Ox Self - Management Plan Other/Additional Comments: torsemide 100mg bid x 3 days Exacerbation Plan Anticipated IV Lasix dose: 100 mg Additional Comments: Will have patient increased torsemide to 100mg bid x 3 more days Continue fluid restriction and low sodium diet Type 2 diabetes mellitus wit h mild [...] 09/04/19 17 Aortic valve stenosis 07/23/2016 Overview: Images from the original note were not included. Echo 06/10/24 Last Assessment & Plan: Not candidate for TAVR Heart failure, systolic, due to idiopathic cardi omyopathy 06/05/2016 Non-ischemic cardiomyopathy 03/15/2016 Last Assessment & Plan: Continue synthroid Coronary artery disease invo lving [place] coronary artery of [place] heart without angina pectoris 07/03/2012 Overview: 60% [...] as of this encounter (statuses as of 06/30/2024) Resolved Problems Problem Noted Date Diagnosed Date [...] as of this encounter (statuses as of 06/30/2024) Immunizations Name Administration Dates Next Due COVID-19 mRNA, LNP-s, No Pre serve, 2-Dose Series ([employer]) 08/29/2021,10/23/2020,10/02/2020 COVID-19, MRNA-LNP, PF, 30 M CG/0.3 mL, 12 YRS AND ABOVE, IM ([facility]) 08/04/2023 Covid-19, Mrna, Lnp-s, [...] encounter Miscellaneous Notes * Telephone Encounter - Bertha Maurer LPN - 06/30/2024 3:01 PM EST HH Discharge Iris MCWILLIAMS, Calling from: [facility] [place] Patient is/has been discharged from Home Health on 06/30/2024 All goals have been met and patient is safe at home. FYI to PCP Caregiver reports that her urine is cloudy but this is baseline for her. Nothing to worry about at this time unless she presents with symptoms. documented in this encounter Plan of Treatment Upcoming Encounters Date Type Department Care Team (Late st Contact Info) Description 08/23/2024 9:00 AM EST Home Visit [facility] [address] [address] Brandt Santacruz PA-C 132 [facility] [place] [address] 10/01/2024 1:00 PM EST Telemedicine Family Medicine [address] [place] [phone] Kusum Jones CRNP [address] [place] [address] [place] [address] 10/13/2024 11:30 AM EST Telemedicine Urology, [facility] [address] [place] [address] Chandler Pena MD [address] [place] [address] 11/24/2024 1:40 PM EDT Office Visit Dermatology [address] [place] [address] Sheryl Pena PA-C [address] [place] [address] [place] [address] 04/18/2025 1:20 PM EDT Telemedicine Family Medicine [address] [place] [phone] Verónica Benavides MD [address] [place] [address] [place] [address] Health Maintenance Due Date Last Done Comments [...] Additional history exists CKD PHOS USE SMARTSET 88589 05/05/202504/25, 04/30/2024, 04/02/2024, Additional history exists CKD HGB USE SMARTSET 68614 05/26/202505/26, 05/26/2024, 05/07/2024, Additional history exists Pneumococcal [...] on File Type Date Recorded Patient Director Private Music Therapy Agency Expl anation Advance Directives and Living Will 08/10/2021 ADVANCE DIRECTIVE / LIVING WILL LIVING WILL Healthcare Agents on File Name Relationship [facility] Communication Josselyn Judd Adult Child Health Care Power of Attor nathalie Care Teams Technology Architect Relationship Specialty Start Date End Date Verónica Benavides MD [address] [place] [address] [place] [phone] PCP - General Family Medicine 09/16/14 documented as of this encounter
--- OUTSIDE RECORDS SUMMARY | 2024-07-04 18:46 | External Medical Summary | Summary of Care ---
Author Name Unknown Organization [facility] Address [address] [place] [address] Phone [phone] Care Team Providers Care Asphalt Roller Person Name Role Phone Verónica Benavides MD Primary Care Provide r Reason for Visit * Reason Onset Date Comments After Hours Call 03/20/2024 Encounter Details Date Type Department Care Team (Late st Contact Info) Description 03/20/2024 Telephone Family Practice [facility] [address] [place] [phone] Shey Sweet, [address] [place] [address] After Hours Call Allergies Active Allergy Reactions Criticality Noted Date Comments Adhesive Tape Medium 01/30/2022 Ibuprofen Hives 01/13/2012 Aspirin Hives,Rash 09/15/2000 Sulfamethoxazole-Trimeth oprim Nausea/vomiting,Othe r (Please comment) 10/27/2020 Dizziness Ciprofloxacin Hcl 06/16/2019 Hoarse, dizzy,disoriented Morphine 09/21/2021 Blacked out Penicillins Hives,Rash 09/15/2000 Prednisone 12/30/2017 Weakness/memory changes/blurred vision documented as of this encounter (statuses as of 06/19/2024) Medications Medication Sig Dispensed Refills Start Date [...] Strip 1 3 Active OneTouch Delica Plus [id number] ns:Type 2 diabetes mellitus with hemoglobin A1c goal of less than 8.0% ([facility]) Test up to two times daily or as directed by [facility] pharmacist 200 Each 3 3 Active Estrogens Conjugated 0.625 MG/GM Vaginal Cream (Premarin) Administer 0.5 g into the vagina every night at bedtime. Pea-sized amount around vulvar area nightly 30 g 5 3 Active DIURETIC TITRATION PLAN If no improvement on day 3, contact [facility] for possible home visit 1 Each 4 Active STOOL SOFTENER 100 MG PO TABS 3-4 tabs daily as needed Discontinued GLUCOSAMINE CHONDR 500 COMPLEX PO CAPS [...] Tablet by mouth in the morning. 1 Discontinued(Me dication/Dose Changed) Nystatin 355482 UNIT/GM External Powder (Nystop)Indication s:Lydia rash of groin Apply topically to affected area 2 times a day . 60 g 11 2 024 Discontinued(Me dication List Clean Up) Probiotic Acidophilus Bio[employer]eads Oral Capsule Take 1 Capsule by mouth every evening. Just with antibiotics 024 Discontinued(Re fill) D-Mannose 500 MG Oral Capsule Take by mouth 2 times a day. 2 caps two times daily Discontinued(Re fill) Vitamin D-3 25 MCG (1000 UT) Oral Capsule Take 1 Capsule by mouth in the morning. 024 Discontinued(Re fill) Docusate Sodium 50 MG/5ML Oral Liquid (Colace) Place 10 gtts to each ear for 30 min then irrigate. 120 mL 3 3 024 Discontinued Metoprolol Succinate ER 25 MG Oral Tablet Extended Release 24 Hour (toPROL XL)Indications:Non -ischemic cardiomyopathy (HCC),Coronary artery disease involving [place] coronary artery of [place] heart without angina pectoris,HTN, goal below 140/90 Take 1 Tablet by mouth every evening. 90 Tablet 11 3 024 Discontinued Benzonatate 100 MG Oral Capsule Take 1 [...] 180 Tablet 1 4 024 Discontinued(Re fill) Torsemide 20 MG Oral Tablet (Demadex)Indicatio ns:Heart failure, systolic, due to idiopathic cardiomyopathy (HCC) Take 60 mg by mouth in the morning, 40 mg by mouth in the afternoon. Additional 20 mg in the afternoon ONLY if directed by health care provider for weight gain of 3 lbs or more. 180 Tablet 3 4 024 Discontinued Meclizine HCl 25 MG Oral Tablet (Antivert)Indicati ons:Vertigo Take 1 tablet by mouth 3 times a day as needed for dizziness 30 Tablet 5 4 024 Discontinued(Re fill) Ondansetron HCl 4 MG Oral Tablet Take 1 Tablet by mouth every 6 hours as needed for Nausea. 20 Tablet 4 Discontinued(Re fill) Erythromycin 5 MG/GM Ophthalmic Ointment Apply .25 inch ribbon to right lower eyelid 4 times daily for 14 days then daily at bedtime 3.5 g 3 4 024 Discontinued Cephalexin 500 MG Oral Capsule Take 1 Capsule by mouth in the morning and 1 Capsule at noon and 1 Capsule before bedtime. Do all this for 10 days. 30 Capsule 4 024 Discontinued(Ok dication List Clean Up) Trulicity 0.75 MG/0.5ML [...] as of this encounter (statuses as of 06/19/2024) Active Problems Problem Noted Date Diagnosed Date [...] Continue synthroid Coronary artery disease invo lving [place] coronary artery of [place] heart without angina pectoris 07/03/2012 Overview: 60% [...] as of this encounter (statuses as of 06/19/2024) Resolved Problems Problem Noted Date Diagnosed Date [...] as of this encounter (statuses as of 06/19/2024) Immunizations Name Administration Dates Next Due COVID-19 mRNA, LNP-s, No Pre serve, 2-Dose Series ([employer]) 08/29/2021,10/23/2020,10/02/2020 COVID-19, MRNA-LNP, 23-24, P F, 30 MCG/0.3 mL, 12 YRS AND ABOVE, IM ([facility]) 08/04/2023 Covid-19, Mrna, Lnp-s, Pf, B ivalent, 30 Mcg, IM, 12 yrs and above ([employer]) 08/02/2022 Pneumococcal Conjugate Vacc, 13 Valent (Prevnar) [...] No 2024 Does the household have a [facility] source of income? (Household - for ages [...] encounter Miscellaneous Notes * Telephone Encounter - Shey Sweet DO - 03/20/2024 11:43 AM EDT Received page. Full culture not back. Start Keflex based on cultures. Pyridium sent per daughter request. Nursing asked to make them aware. documented in this encounter Plan of Treatment Upcoming Encounters Date Type Department Care Team (Late st Contact Info) Description 06/21/2024 3:00 PM EDT Home Visit [facility] [address] [place] [address] Brandt Santacruz PA-C [address] [place] [address] 10/01/2024 1:00 PM EST Telemedicine Family Medicine [address] [phone] Kusum Jones CRNP [address] [place] [address] [place] [address] 10/13/2024 11:30 AM EST Telemedicine Urology, [facility] [address] [place] [address] Chandler Pena MD [address] [place] [address] 11/24/2024 1:40 PM EDT Office Visit Dermatology [address] [place] [address] Sheryl Pena PA-C [address] [place] [address] [place] [address] 04/18/2025 1:20 PM EDT Telemedicine Family Medicine [address] [place] [phone] Verónica Benavides MD [address] [place] [address] [place] [address] Health Maintenance Due Date Last Done Comments [...] Additional history exists CKD PHOS USE SMARTSET 40982 05/05/202504/25, 04/30/2024, 04/02/2024, Additional history exists CKD HGB USE SMARTSET 10359 05/26/202505/26, 05/26/2024, 05/07/2024, Additional history exists Pneumococcal [...] Documents on File Type Date Recorded 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
--- OUTSIDE RECORDS SUMMARY | 2024-07-04 18:46 | External Medical Summary | Summary of Care ---
Author Name Unknown Organization [facility] Address [address] [place] [address] Phone [phone] Care Team Providers Care Mounting Machine Operator Name Role Phone Verónica Benavides MD Primary Care Provide r Reason for Visit * Reason Onset Date Comments Order Request 06/04/2024 Encounter Details Date Type Department Care Team (Late st Contact Info) Description 06/04/2024 Telephone Family [address] [phone] Verónica Benavides MD [address] [place] [address] [place] [address] Order Request Allergies Active Allergy Reactions Criticality Noted Date [...] Strip 1 05/30/2023 Active OneTouch Delica Plus [id number] :Type 2 diabetes mellitus with hemoglobin A1c goal of less than 8.0% ([facility]) Test up to two times daily or as directed by [facility] pharmacist 200 Each 3 07/11/2023 [...] XL)Indications:Non-i schemic cardiomyopathy (HCC),Coronary artery disease involving [place] coronary artery of [place] heart without angina pectoris,HTN, goal below 140/90 [...] Continue synthroid Coronary artery disease invo lving [place] coronary artery of [place] heart without angina pectoris 07/03/2012 Overview: 60% [...] mRNA, LNP-s, No Pre serve, 2-Dose Series ([employer]) 08/29/2021,10/23/2020,10/02/2020 COVID-19, MRNA-LNP, 23-24, P F, 30 MCG/0.3 mL, 12 YRS AND ABOVE, IM ([facility]) 08/04/2023 Covid-19, Mrna, Lnp-s, Pf, B ivalent, 30 Mcg, IM, 12 yrs and above ([employer]) 08/02/2022 Influenza, Whole Virus 08/07/2000 Pneumococcal Conjugate [...] encounter Miscellaneous Notes * Telephone Encounter - Brina Vega OSA - 06/18/2024 12:07 PM EDT Mimi, from [facility], was calling to check on the status of the wheel chair request. I explained that the patent might need an appointment before this can be done ( per previous documentation.) Shewas wondering if anyone has reached out to the patient regarding this. Please call to advise. * Telephone Encounter - Alona Mayer LPN - 06/15/2024 9:13 AM EDT Faxed to secondary insurance, as they are who is requesting. No documentation in recent notes needing chair. If this has to go through [employer] [facility], we will need to set up appt with provider to discuss need for chair. * Telephone Encounter - Verónica Benavides MD - 06/10/2024 1:10 PM EDT Signed * Telephone Encounter - Medina Braswell RN - 06/10/2024 1:02 PM EDT Needs sent to [employer] [facility] * Telephone Encounter - Tarah Culver OSA - 06/04/2024 11:28 AM EDT An order was requested for this patient. Name of Requesting Provider: Chica Order Requested: regular sized wheelchair Diagnosis/Reason for Request: current wheelchair does not have opperational breaks If order request is for Mammogram: Is the patient having any breast symptoms? N/A Is there a chance of ? N/A Has the patient had any breast problems in the past? NA What location AND department does the patient wish to have their order completed at? DME Company, patient does not have preference. Fax Number, if applicable: Fax to [facility] when completed at [phone] If the caller is not a current patient, please advise the patient to call their current PCP to havethe order's prior to being seen in our office. The patient was informed that our providers would not order anything (medication, labs, etc.) prior to being seen. documented in this encounter Plan of Treatment Upcoming Encounters Date Type Department Care Team (Late st Contact Info) Description 06/18/2024 2:20 PM EDT Telemedicine Family [address] [phone] Verónica Benavides MD [address] [place] [address] [place] [address] 06/21/2024 3:00 PM EDT [facility] [place] [address] Brandt Santacruz PA-C [address] [place] [address] 10/01/2024 1:00 PM EST Telemedicine Family Medicine [address] [phone] Kusum Jones CRNP [address] [place] [address] [place] [address] 10/13/2024 11:30 AM EST Telemedicine Urology, [facility] [address] [facility] [place] [address] Chandler Pena MD [address] [place] [address] 11/24/2024 1:40 PM EDT Office Visit Dermatology [address] [place] [address] Sheryl Pena PA-C [address] [place] [address] [place] [address] 04/18/2025 1:20 PM EDT Telemedicine Family Medicine [address] [place] [phone] Verónica Benavides MD [address] [place] [address] [place] [address] Health Maintenance Due Date Last Done Comments [...] Additional history exists CKD PHOS USE SMARTSET 66711 05/05/202504/25, 04/30/2024, 04/02/2024, Additional history exists CKD HGB USE SMARTSET 13482 05/26/202505/26, 05/26/2024, 05/07/2024, Additional history exists Pneumococcal [...] as of this encounter Visit Diagnoses Diagnosis Impaired mobility and ADLs- Primary Mechanical problems with limbs Trochanteric bursitis of right hip Enthesopathy of hip region Morbid obesity with BMI of 45.0-49.9, adult (HCC) Morbid obesity LBBB (left bundle branch block) Other left bundle branch block GENERAL OSTEOARTHROSIS Generalized osteoarthrosis, unspecified site documented in this encounter Additional Health Concerns Infection Onset Date Last Indicated Resolved Time ESBL 06/07/2024 06/07/2024 documented as of this encounter Advance Directives Documents on File Type Date Recorded Patient 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
--- OUTSIDE RECORDS SUMMARY | 2024-07-04 18:46 | External Medical Summary | Summary of Care ---
Author Name Unknown Organization [facility] Address [address] [place] [address] Phone [phone] Care Team Providers Care Appraisal Coordinator Name Role Phone Verónica Benavides MD Primary Care Provide r Reason for Visit * Reason Onset Date Comments Order Request 06/04/2024 Encounter Details Date Type Department Care Team (Late st Contact Info) Description 06/04/2024 Telephone Family [address] [phone] Verónica Benavides MD [address] [place] [address] [place] [id number] Order Request Allergies Active Allergy Reactions Criticality Noted Date Comments Adhesive Tape Medium 01/30/2022 Ibuprofen Hives 01/13/2012 Aspirin Hives,Rash 09/15/2000 Sulfamethoxazole-Trimeth oprim Nausea/vomiting,Othe r (Please comment) 10/27/2020 Dizziness Ciprofloxacin Hcl 06/16/2019 Hoarse, dizzy,disoriented Morphine 09/21/2021 Blacked out Penicillins Hives,Rash 09/15/2000 Prednisone 12/30/2017 Weakness/memory changes/blurred vision documented as of this encounter (statuses as of 06/21/2024) Medications Medication Sig Dispensed Refills Start Date [...] Strip 1 3 Active OneTouch Delica Plus [id number] s:Type 2 diabetes mellitus with hemoglobin A1c [...] FOURTEEN DAYS 60 g 2 4 Active Torsemide 20 MG Oral Tablet (Demadex)Indication s:Heart failure, systolic, due to idiopathic cardiomyopathy (HCC) Take 3 Tablets by mouth in the morning and 3 Tablets in the evening. 4 06/18/20 24 Discontinued documented as of this encounter (statuses as of 06/21/2024) Active Problems Problem Noted Date Diagnosed Date [...] as of this encounter (statuses as of 06/21/2024) Resolved Problems Problem Noted Date Diagnosed Date [...] as of this encounter (statuses as of 06/21/2024) Immunizations Name Administration Dates Next Due COVID-19 mRNA, LNP-s, No Pre serve, 2-Dose Series (Sparxent) 08/29/2021,10/23/2020,10/02/2020 COVID-19, MRNA-LNP, 23-24, P F, 30 MCG/0.3 mL, 12 YRS AND ABOVE, IM ([place] [employer]-Comirnat[employer] Futures) 08/04/2023 Covid-19, Mrna, Lnp-s, Pf, B ivalent, [...] Telephone Encounter - Medina Braswell RN - 06/21/2024 9:15 AM EDT Orders were faxed on 06/15/24 to [facility] * Telephone Encounter - Nato Friend OSA - 06/18/2024 3:20 PM EDT Please advise. * Telephone Encounter - Brina Vega OSA - 06/18/2024 12:07 PM EDT Mimi, from [facility], was calling to check on the status [...] chair. If this has to go through tomorrow health, we will need to set up appt with provider to discuss need for chair. * Telephone Encounter - Verónica Benavides MD - 06/10/2024 1:10 PM EDT Signed * Telephone Encounter - Medina Braswell RN - 06/10/2024 1:02 PM EDT Needs sent to [employer] * Telephone Encounter - Tarah Culver OSA [...] preference. Fax Number, if applicable: Fax to [facility] when completed at [phone] If the caller is not a current [...] Description 06/21/2024 3:00 PM EDT Home Visit [facility] [address] [place] [address] Brandt Santacruz PA-C [address] [place] [place] [address] 10/01/2024 1:00 PM EST Telemedicine Family Medicine [address] [place] [phone] Kusum Jones CRNP [address] [place] [address] [place] [address] 10/13/2024 11:30 AM EST Telemedicine Urology, [facility] [address] [facility] [place] [address] Chandler Pena MD [address] [place] [address] 11/24/2024 1:40 PM EDT Office Visit Dermatology [address] [place] [address] Sheryl Pena PA-C [address] [place] [address] [place] [address] 04/18/2025 1:20 PM EDT Telemedicine Family Medicine [address] [place] [phone] Verónica Benavides MD [address] [place] [address] [place] [address] Health Maintenance Due Date Last Done Comments Zoster Vaccines (1 of 2) 1985 Adult Wellness Visit 09/11/2016 09/11/2015 DXA Scan 04/02/2020 04/02/2017, 12/24, 11/05/2007 Depression Screening 05/24/2020 05/24/2019 Diabetic Foot Exam 11/08/2020 11/09/2019, 0 09/01/2018, 08/28/2017, Additional history exists DTap/Tdap Vaccines (2 - Td or Tdap) 11/16/2023 11/15/2013, 03/29/2008, 03/29/2008 Diabetic Eye Exam 12/22/2023 12/21/2022, , 03/10/2021, Additional history exists COVID-19 Vaccine (2023- season) 2024 08/04/2023, 08/04/2023, 08/02/2022, Additional history exists Influenza Vaccine (FLU shot) (#1) 2024 06/20/2022, 06/20/2022, 06/29/2021, Additional history exists HbA1c 10/03/2024 04/02/2024, 06/2 , 11/01/2022, Additional history exists TSH 04/02/2025 04/02/2024, 08/0 08/2022, 02/24/2023, Additional history exists Albumin/Creatinine Ratio 04/19/2025 024, 02/07/2023, 01/18/2022, Additional history exists CKD PHOS USE SMARTSET 59851 05/05/202504/25, 04/30/2024, 04/02/2024, Additional history exists CKD HGB USE SMARTSET 70070 05/26/202505/26, 05/26/2024, 05/07/2024, Additional history exists Pneumococcal [...] Documents on File Type Date Recorded Patient Coding Analyst Expl anation Advance Directives and Living Will 08/10/2021 ADVANCE DIRECTIVE / LIVING WILL LIVING WILL Healthcare Agents on File Name Relationship Healthcare Agent Relationshi p Communication Josselyn Judd Adult Child Health Care Power of Attor nathalie Care Teams Appraisal Coordinator Relationship Specialty Start Date End Date Verónica Benavides MD [address] [place] [address] [place] [address] PCP - General Family Medicine 09/16/14 documented as of this encounter
--- OUTSIDE RECORDS SUMMARY | 2024-07-04 18:46 | External Medical Summary | Summary of Care ---
Author Name Unknown Organization [facility] Address [address] [place] [address] Phone [phone] Care Team Providers Care Bed Teacher Name Role Phone Verónica Benavides MD Primary Care Provide r Reason for Visit * Reason Onset Date Comments Order Request 06/04/2024 Encounter Details Date Type Department Care Team (Late st Contact Info) Description 06/04/2024 Telephone Family [address] [phone] Verónica Benavides MD [address] [place] [address] [place] [address] Order Request Allergies Active [...] Strip 1 3 Active OneTouch Delica Plus [id number] s:Type 2 diabetes mellitus with hemoglobin A1c goal of less than 8.0% ([facility]) Test up to two times daily or as directed by [facility] pharmacist 200 Each 3 [...] XL)Indications:Non- ischemic cardiomyopathy (HCC),Coronary artery disease involving stebbins coronary [...] mRNA, LNP-s, No Pre serve, 2-Dose Series (Tred) 08/29/2021,10/23/2020,10/02/2020 COVID-19, MRNA-LNP, 23-24, P F, 30 MCG/0.3 mL, 12 YRS AND ABOVE, IM ([employer]-Comirnat[employer]wall) 08/04/2023 Covid-19, Mrna, Lnp-s, Pf, B ivalent, [...] - 06/18/2024 12:07 PM EDT Mimi, from [facility], was calling to check on the status [...] 06/10/2024 1:02 PM EDT Needs sent to [email or web address] * Telephone Encounter - Tarah Culver OSA - 06/04/2024 11:28 AM EDT An order was requested for this patient. Name of Requesting Provider: Idfazal Order Requested: regular sized wheelchair Diagnosis/Reason for [...] preference. Fax Number, if applicable: Fax to [facility] when completed at [phone] If the caller is not a current [...] Description 06/21/2024 3:00 PM EDT [facility] [place] [address] Brandt Santacruz PA-C [address] [place] [address] 10/01/2024 1:00 PM EST Telemedicine Family Medicine [address] [place] [phone] Kusum Jones CRNP [address] [place] [address] [place] [address] 10/13/2024 11:30 AM EST Telemedicine Urology, [facility] [address] [place] [address] Chandler Pena MD [address] [place] [address] 11/24/2024 1:40 PM EDT Office Visit Dermatology [address] [place] [address] Sheryl Pena PA-C [address] [place] [address] [place] [address] 04/18/2025 1:20 PM EDT Telemedicine Family Medicine [address] [place] [phone] Verónica Benavides MD [address] [place] [address] [place] [address] Health Maintenance Due Date Last Done Comments [...] Additional history exists CKD PHOS USE SMARTSET 43147 05/05/202504/25, 04/30/2024, 04/02/2024, Additional history exists CKD HGB USE SMARTSET 46418 05/26/202505/26, 05/26/2024, 05/07/2024, Additional history exists Pneumococcal [...] Documents on File Type Date Recorded Patient News Technical Director Expl anation Advance Directives and Living Will 08/10/2021 ADVANCE DIRECTIVE / LIVING WILL LIVING WILL Healthcare Agents on File Name Relationship Healthcare Agent [facility] Josselyn Judd Adult Child Health Care Power of Attor nathalie Care Teams Bed Teacher Relationship Specialty Start Date End Date Verónica Benavides MD [address] [place] [address] [place] [address] PCP - General Family Medicine 09/16/14 documented as of this encounter
--- OUTSIDE RECORDS SUMMARY | 2024-07-04 18:46 | External Medical Summary | Summary of Care ---
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; History of recurrent UTI (urinary tract infection); Advanced care planning/counseling discussion Allergies Active Allergy Reactions Criticality Noted Date Comments Adhesive Tape Medium 01/30/2022 Ibuprofen Hives 01/13/2012 Aspirin Hives,Rash 09/15/2000 Sulfamethoxazole-Trimeth oprim Nausea/vomiting,Othe r (Please comment) 10/27/2020 Dizziness Ciprofloxacin Hcl 06/16/2019 Hoarse, dizzy,disoriented Morphine 09/21/2021 Blacked out Penicillins Hives,Rash 09/15/2000 Prednisone 12/30/2017 Weakness/memory changes/blurred vision documented as of this encounter (statuses as of 06/22/2024) Medications Medication Sig Dispensed Refills Start Date [...] Strip 1 05/30/2023 Active OneTouch Delica Plus [id number] :Type 2 diabetes mellitus with hemoglobin A1c goal of less than 8.0% ([facility]) Test up to two times daily or as directed by [facility] pharmacist 200 Each 3 07/11/2023 Active Estrogens Conjugated 0.625 MG/GM Vaginal Cream (Premarin) Administer 0.5 g into the vagina every night at bedtime. Pea-sized amount around vulvar area nightly 30 g 5 07/14/2023 Active DIURETIC TITRATION PLAN If no improvement on day 3, contact [facility] for possible home visit 1 Each [...] XL)Indications:Non-i schemic cardiomyopathy (HCC),Coronary artery disease involving mic[place]ukee coronary artery of [place]ukee heart without angina pectoris,HTN, goal below 140/90 [...] 4 Tablets in the evening. 06/18/2024 Active documented as of this encounter (statuses as of 06/22/2024) Active Problems Problem Noted Date Diagnosed Date [...] Continue synthroid Coronary artery disease invo lving miccosukee coronary artery of [place]ukee heart without angina pectoris 07/03/2012 Overview: 60% [...] as of this encounter (statuses as of 06/22/2024) Resolved Problems Problem Noted Date Diagnosed Date [...] as of this encounter (statuses as of 06/22/2024) Immunizations Name Administration Dates Next Due COVID-19 mRNA, LNP-s, No Pre serve, 2-Dose Series ([employer]) 08/29/2021,10/23/2020,10/02/2020 COVID-19, MRNA-LNP, 23-24, P F, 30 MCG/0.3 mL, 12 YRS AND ABOVE, IM ([employer]) 08/04/2023 Covid-19, Mrna, Lnp-s, Pf, B ivalent, 30 Mcg, IM, 12 yrs and above ([employer]) 08/02/2022 Pneumococcal Conjugate Vacc, 13 Valent (Prevnar) [...] Sign Reading Time Taken Comments Blood Pressure 110/60 06/21/2024 12:23 PM EDT Pulse 80 06/21/2024 12:23 PM EDT Temperature - - Respiratory Rate - - Oxygen Saturation 94% 06/21/2024 12:23 PM EDT Inhaled Oxygen Concentration - - Weight - - Height - - Body Mass Index - - documented in this encounter Progress Notes * Brandt Santacruz PA-C - 06/21/2024 11:50 AM EDT Images from the original note were not included. 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 #4 History of recurrent UTI (urinary tract infection) Assessment & Plan: Urology f/u Continues on macrobid for suppression #5 Advanced care planning/counseling discussion Additional Medical Decision Making: Patient lives in multi level home, but single floor setup Lives next door to daughter Has / care provided by daughter and paid caregivers Appears to almost back to baseline today Will have torsemide increased to 100mg bid x 3 more days Difficult to determine fluid status due to chronic lymphedema and body habitus SOB multifactorial, severe , CHF, obesity, deconditioning Reviewed cardiology consult, recommended palliative due to sever inoperable and progressive CHF.Family aware Reviewed indications for urinary testing. Patient now developing resistant bacteria and will be more difficult to treat as outpatient. Most recent admission was deemed asymptomatic bacteriuria and antibiotics were stopped. Goals of care reviewed. Remains DNR/DNI, with limited interventions Family admits that as patient continues to decline, she may eventually require SNF for care needs. For now, they will continue to provide 24/7 care at home as able. Reviewed with patient that at any point, she can refuse to return to the hospital. Briefly reviewedhospice. Scheduled appointments in the next 60 days: Future Appointments-next 60 days Date/Time Provider Specialty Dept Phone 06/21/2024 3:00 PM Brandt Santacruz PA-C [facility] [phone] 10/01/2024 1:00 PM Kusum Jones CRNP Family Medicine [phone] 10/13/2024 11:30 AM Chandler Pena MD Urology [phone] 11/24/2024 1:40 PM (Arrive by 1:25 PM) Sheryl Pena PA-C Dermatology [phone] 04/18/2025 1:20 PM Verónica Benavides MD Family Medicine [phone] A total of 60 minutes was spent face to face (via video-based telemedicine if designated as a telemedicine visit) Subjective Subjective Is this a Telemedicine Visit? No, this is an Home Visit. Reason For [facility] Visit: Follow-Up Current Concerns: Regla Castano is a 89 year old female seen today for a [facility] provider visit. PMH includes chronic CHF, ischemic cardiomyopathy,CAD, dyslipidemia, CKD stage 3, obesity, type 2 DM, lymphedema,GERD, and severe . Today's concerns are: Since last visit, patient has had multiple hospital and halfway admissions related to CHF, UTI, or weakness Most recent admission 06/09-06/15/24 - [facility] - acute on chronic CHF Initially thought to have UTI, but was deemed asymptomatic bacteruria and abx stopped Treated with IV diuretics during admission, lasix 40mg bid Was denied rehab stay, and returned home in stable condition Today she reports feeling well Daughter has some concerns with recent weight gain Initially 231, then up to 236lbs Torsemide increased slightly from 80mg bid to 90mg with few lbs weight loss She continues to have GARNICA Denies chest pain, palpitations Appetite good Trying to limit to 1500ml fluid restriction Daughter reports variability in urine output, but ultimately no urinary retention Additional I have reviewed the following results: CBC and BMP Current Outpatient Medications Medication Sig Dispense Refill Bisacodyl 5 MG Oral Tablet Delayed Release Take 2 Tablets by mouth daily as needed for Constipation. Do not use for more than one week. Do not cut, crush or chew 40 Tablet 1 Clotrimazole 1 % External Cream (Lotrimin) APPLY TO THE AFFECTED AREA(S) TWICE DAILY FOR FOURTEEN DAYS 60 g 2 Colchicine 0.6 MG Oral Tablet Take 1 Tablet by mouth 2 times a day as needed (GOUT). D-Mannose 500 MG Oral Capsule Take 2 Tablets by mouth in the morning and 2 Tablets before bedtime. 2 caps two times daily. 120 Capsule 0 Diclofenac Sodium 1 % External Gel (Voltaren) Apply topically to affected area 3 times a day as needed for Pain, Mild. 50 g 3 DIURETIC TITRATION PLAN If no improvement on day 3, contact [facility] for possible home visit 1 Each 0 Estrogens Conjugated 0.625 MG/GM Vaginal Cream (Premarin) Administer 0.5 g into the vagina every night at bedtime. Pea-sized amount around vulvar area nightly 30 g 5 Glucosamine Chondr 500 Complex Oral Capsule Take 1 Capsule by mouth in the morning and 1 Capsule before bedtime. 60 Capsule 0 Levothyroxine Sodium 88 MCG Oral Tablet (Levoxyl) Take 1 Tablet by mouth daily first thing in the morning. (at least 30 min prior to breakfast or other meds) 90 Tablet 3 Magnesium Oxide 400 MG Oral Tablet Take 1 Tablet by mouth in the morning. 30 Tablet 0 Meclizine HCl 25 MG Oral Tablet (Antivert) Take 1 tablet by mouth 3 times a day as needed for dizziness 30 Tablet 5 Metoprolol Succinate ER 25 MG Oral Tablet Extended Release 24 Hour (toPROL XL) Take 1 Tablet by mouth every evening. 90 Tablet 1 Mirabegron ER 25 MG Oral Tablet Extended Release 24 Hour (Myrbetriq) Take 1 Tablet by mouth in the morning. 90 Tablet 3 Nitrofurantoin Monohyd Macro 100 MG Oral Capsule (Macrobid) Take 1 Capsule by mouth every night at bedtime. Omeprazole 20 MG Oral Capsule Delayed Release (PriLOSEC) Take 1 Capsule by mouth in the morning. One hour before the first meal of the day.. 90 Capsule 1 Ondansetron HCl 4 MG Oral Tablet Take 1 Tablet by mouth every 6 hours as needed for Nausea. 20 Tablet 0 NuScale Poweruch ProcessUnity Plus [id number] Test up to two times daily or as directed by [facility] pharmacist 200 Each 3 OneTouch Verio In Vitro Strip (Glucose Blood) TEST UP TO FOUR TIMES DAILY 400 Strip 1 OneTouch Verio w/Device Kit Use up to 4 times a day E11.9 1 Kit 0 Phenazopyridine HCl 200 MG Oral Tablet (Pyridium) Take 1 Tablet by mouth 3 times a day as needed for Pain, Severe. After meals for pain with urination 6 Tablet 0 Polyethylene Glycol 3350 17 GM/SCOOP Oral Powder (MiraLax) Take 17 g by mouth in the morning. Dissolve one heaping tablespoon in 8 ounces of water or juice.. 255 g 0 Potassium Chloride Laura ER 20 MEQ Oral Tablet Extended Release Take 1 Tablet by mouth 2 times a daywith morning and evening meals. 180 Tablet 1 Probiotic Acidophilus BioBeads Oral Capsule Take 1 Capsule by mouth every evening. Just with antibiotics 30 Capsule 0 Promethazine-DM 6.25-15 MG/5ML Oral Syrup Take by mouth 4 times a day as needed for Cough. Sennosides 8.6 MG Oral Tablet Take 2 Tablets by mouth in the morning. 60 Tablet 0 Spironolactone 25 MG Oral Tablet (Aldactone) Take 0.5 Tablets by mouth in the morning. 45 Tablet 3 Stool Softener 100 MG Oral Tablet (Docusate Sodium) Take 3 Tablets by mouth in the morning and 3 Tablets before bedtime. 120 Tablet 0 Torsemide 20 MG Oral Tablet (Demadex) Take 4 Tablets by mouth in the morning and 4 Tablets in the evening. Trulicity 0.75 MG/0.5ML Subcutaneous Solution Pen-injector (Dulaglutide) Inject 0.75 mg under the skin once a week. 0.5 mL 3 Vitamin B-12 500 MCG Oral Tablet (vitamin B-12) Take 1 Tablet by mouth in the morning. 30 Tablet 0 Vitamin D-3 25 MCG (1000 UT) Oral Capsule Take 1 Capsule by mouth in the morning. 30 Capsule 0 No current facility-administered medications for this visit. Objective Objective Vitals: 06/21/24 1223 Pulse: 80 SpO2: 94% BP: 110/60 Last Weights: Wt Readings from Last 3 Encounters: 04/14/24 106.9 kg (235 lb 9.6 oz) 02/20/24 105.1 kg (231 lb 12.8 oz) 02/20/24 105.1 kg (231 lb 12.8 oz) Last BPs: BP Readings from Last 4 Encounters: 06/21/24 110/60 06/09/24 108/64 06/08/24 108/52 05/17/24 118/60 General: alert, no distress, and obese Neuro: alert & oriented x 3 with fluent speech Heart: regular rate & rhythm and + murmur Lungs: lungs clear to auscultation, no wheeze, no rales, no rhonchi Abdomen: abdomen soft, non-tender, obese, and normal bowel sounds Ext: +chronic lymphedema Brandt Santacruz PA-C 11:51 AM documented in this encounter Miscellaneous Notes * ACP (Advance Care Planning) - Brandt Santacruz PA-C - 06/22/2024 10:24 AM EDT Images from the original note were not included. Patient-centered Communication 06/21/2024 The patient/surrogate voluntarily agreed to participate in advance care planning discussion. They were advised that this is a separate service which may incur out of pocket cost in the form of copayment and/or deductibles. Location: Home Individual(s) present for conversation: Patient Decisions Synopsis [employer] Most Recent Value Past ~10 years 05/02/2023 18:23 Decisions CPR decision: Declines CPR 05/02/2023 Declines CPR Intubation/Mechanical Ventilation decision: Declines Intubation/mechanical ventilation 05/02/2023 Declines Intubation/mechanical ventilation Non-invasive ventilation or BIPAP decision: Patient chooses non-invasive ventilation. Select interventions below 01/30/2023 Non-Invasive Ventilation Interventions: CPAP;BIPAP;NIV 09/06/2022 Antibiotic therapy decision: Patient chooses Antibiotic therapy 05/02/2023 Patient chooses Antibiotic therapy Artificial nutrition decision: Declines Artificial nutrition 05/02/2023 Declines Artificial nutrition IV hydration decision: Patient chooses IV hydration CHANGE FROM PRIOR 01/30/2023 Blood transfusion decision: Patient chooses Blood transfusion 01/30/2023 Lab draw decision: Patient chooses Lab draws 05/02/2023 Patient chooses Lab draws Hospice decision: Undecided about Hospice 10/04/2021 Transport decision: Declines Transport 02/11/2023 Dying at home decision: Undecided about Dying at home 11/13/2022 Dialysis decision: Undecided about Dialysis 01/30/2023 Additional Comments Synopsis [employer] Most Recent Value Past ~10 years 06/22/2024 10:23 Additional Comments Additional Comments: DNR/dNI. limited interventions 06/22/2024 DNR/dNI. limited interventions Discerning What Matters Most to the Patient: Synopsis [employer] Most Recent Value Past ~10 years 06/22/2024 10:22 Discerning What Matters Most to the Patient In their own words, patient's UNDERSTANDING of their illness is: "my heart is getting weaker" "my legs arent very strong anymore" 11/13/2022 Their current SYMPTOMS include: Pain;Tiredness;Shortnes of breath;Reduced overall well being 06/22/2024 Pain;Tiredness;Shortnes of breath;Reduced overall well being They say their illness has CHANGED THEIR LIFE by: Less enjoyment (quality of life);Feel like a burden to family/loved ones 06/22/2024 Less enjoyment (quality of life);Feel like a burden to family/loved ones Other, patient defines as: limited by weakness and SOB 09/06/2022 Was PROGNOSIS discussed? No 08/31/2021 Prognosis was not discussed due to: Other, please comment prognostic uncertainty 08/31/2021 The patient's HOPES are: Maintain current functional abilities;Avoid intubation/mechanical ventilation;Avoid symptoms 06/22/2024 Maintain current functional abilities;Avoid intubation/mechanical ventilation;Avoid symptoms Other, patient defines as: she would like to be able to walk more 11/13/2022 Avoid symptoms include: Dyspnea 06/22/2024 Dyspnea The patient defines LIVING WELL as: enjoys watching tv, also enjoys watching wildlife in the yard 09/06/2022 The patient's FEARS/WORRIES about illness are: Going to a halfway aware that if her mobility continues to decline, family will no longer be able to care for her at home 11/13/2022 The patient considers these as 'UNACCEPTABLE OUTCOMES': Unable to talk/interact with loved ones;Unable to feed themselves 09/06/2022 The patient's cultural or spiritual BELIEFS that may affect health care decisions: "God will take me when its my time to go and there is nothing I can do to change that" 06/22/2024 "God will take me when its my time to go and there is nothing I can do to change that" Source: Content from [employer] [facility] Aligning Care With What Matters Most: [employer] Most Recent Value Past ~10 years 06/22/2024 10:23 Aligning Care With What Matters Most In their own words, the patient's understanding of their prognosis: "im pushing 90 now, only God knows when its my time to go" 06/22/2024 "im pushing 90 now, only God knows when its my time to go" Interventions/Choices: CPR;Intubation/mechanical ventilation;Antibiotic therapy;Artificial nutrition;Lab draws 05/02/2023 Rationale for Decisions Synopsis [employer] Most Recent Value Past ~10 years 08/31/2021 14:14 CPR They describe the benefits and burdens of CPR treatment as: might live but in unacceptable state 08/31/2021 might live but in unacceptable state Synopsis [employer] Most Recent Value Past ~10 years 08/31/2021 14:15 Intubation/mechanical ventilation They describe the benefits and burdens of Intubation/mechanical ventilation treatment as: might survive 08/31/2021 might survive Their goals for Intubation/mechanical ventilation treatment are: treat reversible condition 08/31/2021 treat reversible condition Unacceptable outcomes from Intubation/mechanical ventilation treatment are: permanent or shelter dependence on vent. unable to interact with family 08/31/2021 permanent or shelter dependence on vent. unable to interact with family Synopsis [facility] Most Recent Value Past ~10 years 09/06/2022 08:37 Non-invasive ventilation or BIPAP Unacceptable outcomes from Non-invasive ventilation or BIPAP treatment are: prolonged more than a few days 09/06/2022 prolonged more than a few days Synopsis [facility] Most Recent Value Past ~10 years 10/04/2021 14:05 Hospice They describe the benefits and burdens of Hospice treatment as: Discussed benefits and burdens and hospice eligibility criteria 10/04/2021 Discussed benefits and burdens and hospice eligibility criteria Their goals for Hospice treatment are: Comfortable peaceful at home 10/04/2021 Comfortable peaceful at home Unacceptable outcomes from Hospice treatment are: Avoiding hospital stay 10/04/2021 Avoiding hospital stay Synopsis [facility] Most Recent Value Past ~10 years 02/11/2023 16:57 Transport Unacceptable outcomes from Transport treatment are: Reports she does not want to go to the hospital. Wants to be left alone- stay at her home. 02/11/2023 Reports she does not want to go to the hospital. Wants to be left alone- stay at her home. Synopsis [facility] Most Recent Value Past ~10 years 11/13/2022 16:22 at home Their fears/concerns about the at home decision are: family likely not able to provide level ofcare if she declines further 11/13/2022 family likely not able to provide level of care if she declines further Source: Content from [employer] [facility] 30 minutes spent in direct [id number] discussion Brandt goodson PA-C * Assessment & Plan Note - Brandt Santacruz PA-C - 06/22/2024 10:21 AM EDT Associated Problem(s): History of recurrent UTI (urinary tract infection) Urology f/u Continues on macrobid for suppression * Assessment & Plan Note - Brandt Santacruz PA-C - 06/22/2024 10:20 AM EDT Associated Problem(s): 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) "RED FLAG" HF Symptoms: Increased dyspnea on [...] Continue fluid restriction and low sodium diet * Assessment & Plan Note - Brandt Santacruz PA-C - 06/22/2024 10:17 AM EDT Associated Problem(s): Aortic valve stenosis Not candidate for TAVR documented in this encounter Plan of Treatment Upcoming Encounters Date Type Department Care Team (Late st Contact Info) Description 08/23/2024 9:00 AM EST Home Visit [facility] [address] [place] [address] Brandt Santacruz PA-C [address] [facility] [place] [address] 10/01/2024 1:00 PM EST Telemedicine Family Medicine [address] [place] [phone] Kusum Jones [address] [place] [address] 10/13/2024 11:30 AM EST Telemedicine Urology, [facility] [address] [place] [address] Chandler Pena MD [address] [place] [address] 11/24/2024 1:40 PM EDT Office Visit Dermatology [address] [place] [address] Sheryl Pena PA-C [address] [place] [address] [place] [address] 04/18/2025 1:20 PM EDT Telemedicine Family Medicine [address] [phone] Verónica Benavides MD [address] [place] [address] [place] [address] Health Maintenance Due Date Last Done Comments [...] Additional history exists CKD PHOS USE SMARTSET 79726 05/05/202504/25, 04/30/2024, 04/02/2024, Additional history exists CKD HGB USE SMARTSET 76874 05/26/202505/26, 05/26/2024, 05/07/2024, Additional history exists Pneumococcal [...] failure and stage 3a chronic kidney disease (HCC)- Primary Nonrheumatic aortic valve stenosis Aortic valve disorders ESBL E. 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 Carrier or suspected carrier of other specified bacterial diseases History of recurrent UTI (urinary tract infection) Personal history of urinary (tract) infection Advanced care planning/counseling discussion Other specified counseling documented in this encounter Additional Health Concerns Infection Onset Date Last Indicated Resolved Time ESBL 06/07/2024 06/07/2024 documented as of this encounter Advance Directives Documents on File Type Date Recorded Patient Self [employer] Expl anation Advance Directives and Living Will 08/10/2021 ADVANCE DIRECTIVE / LIVING WILL LIVING WILL Healthcare Agents on File Name Relationship Healthcare Agent [facility] Communication Josselyn Judd Adult Child Health Care Power of Attor nathalie Care Teams Customer Service Operator Relationship Specialty Start Date End Date Verónica Benavides MD [address] [place] [address] [place] [phone] PCP - General Family Medicine 09/16/14 documented as of this encounter
--- OUTSIDE RECORDS SUMMARY | 2024-07-04 18:46 | External Medical Summary | Summary of Care ---
Author Name Unknown Organization [facility] Address [address] [place] [address] Phone [phone] Care Team Providers Care Geosciences Associate Professor Name Role Phone Verónica Jiang MD Primary Care Provide r Reason for Visit * Reason Comments eRx-Medication Refill Encounter Details Date Type Department Care Team (Late st Contact Info) Description 06/27/2024 Refill Family Medicine [address] [address] Verónica Jiang MD [address] [place] [address] Allergies Active Allergy Reactions Criticality Noted Date Comments Adhesive Tape Medium 01/30/2022 Ibuprofen Hives 01/13/2012 Aspirin Hives,Rash 09/15/2000 Sulfamethoxazole-Trimeth oprim Nausea/vomiting,Othe r (Please comment) 10/27/2020 Dizziness Ciprofloxacin Hcl 06/16/2019 Hoarse, dizzy,disoriented Morphine 09/21/2021 Blacked out Penicillins Hives,Rash 09/15/2000 Prednisone 12/30/2017 Weakness/memory changes/blurred vision documented as of this encounter (statuses as of 06/29/2024) Medications Medication Sig Dispensed Refills Start Date [...] Strip 1 3 Active OneTouch Delica Plus [id number] s:Type 2 diabetes mellitus with hemoglobin A1c goal of less than 8.0% ([facility]) Test up to two times daily or as directed by [facility] pharmacist 200 Each 3 3 Active Estrogens Conjugated 0.625 MG/GM Vaginal Cream (Premarin) Administer 0.5 g into the vagina every night at bedtime. Pea-sized amount around vulvar area nightly 30 g 5 3 Active DIURETIC TITRATION PLAN If no improvement on day 3, contact [facility] for possible home visit 1 Each [...] in the morning. 30 Capsule 4 Active Ondansetron HCl 4 MG Oral [...] 4 Tablets in the evening. 4 Active Potassium Chloride Laura ER 20 MEQ Oral Tablet Extended Release Take 1 Tablet by mouth 2 times a day with morning and evening meals. 180 Tablet 3 4 Active Potassium Chloride Laura ER 20 MEQ Oral Tablet Extended Release Take 1 Tablet by mouth 2 times a day with morning and evening meals. 180 Tablet 1 4 06/29/20 24 Discontinued documented as of this encounter (statuses as of 06/29/2024) Active Problems Problem Noted Date Diagnosed Date [...] as of this encounter (statuses as of 06/29/2024) Resolved Problems Problem Noted Date Diagnosed Date [...] as of this encounter (statuses as of 06/29/2024) Immunizations Name Administration Dates Next Due COVID-19 mRNA, LNP-s, No Pre serve, 2-Dose Series ([employer]) 08/29/2021,10/23/2020,10/02/2020 COVID-19, MRNA-LNP, PF, 30 M CG/0.3 mL, 12 YRS AND ABOVE, IM ([facility]) 08/04/2023 Covid-19, Mrna, Lnp-s, Pf, B ivalent, 30 Mcg, IM, 12 yrs and above ([employer]) 08/02/2022 Pneumococcal Conjugate Vacc, 13 Valent (Prevnar) [...] encounter Miscellaneous Notes * Telephone Encounter - Jolie Nobles miriam - 06/29/2024 7:19 AM ESTSigned Prescriptions: Disp Refills Potassium Chloride Laura ER 20 MEQ Oral Tab*180 Ta*3 Sig: Take 1 Tablet by mouth 2 times a day with morning and evening meals.Authorizing Provider: VERÓNICA JIANG User: JOLIE NOBLES documented in this encounter Plan of Treatment Upcoming Encounters Date Type Department Care Team (Late st Contact Info) Description 08/23/2024 9:00 AM EST Home Visit [facility] [address] [place] [address] Brandt Santacruz PA-C 132 [facility] [place] [address] 10/01/2024 1:00 PM EST Telemedicine Family Medicine [address] [place] [phone] Kusum Jones [address] [place] [address] 10/13/2024 11:30 AM EST Telemedicine Urology, [facility] [address] [place] [address] Chandler Pena MD [address] [place] [address] 11/24/2024 1:40 PM EDT Office Visit Dermatology [address] [place] [address] Sheryl Pena PA-C [address] [place] [address] [place] [address] 04/18/2025 1:20 PM EDT Telemedicine Family Medicine [address] [place] [phone] Verónica Jiang MD [address] [place] [address] [place] [address] Health Maintenance Due Date Last Done Comments [...] Additional history exists CKD PHOS USE SMARTSET 79564 05/05/202504/25, 04/30/2024, 04/02/2024, Additional history exists CKD HGB USE SMARTSET 68303 05/26/202505/26, 05/26/2024, 05/07/2024, Additional history exists Pneumococcal [...] Documents on File Type Date Recorded 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
--- OUTSIDE RECORDS SUMMARY | 2024-07-04 18:47 | External Medical Summary | Summary of Care ---
Author Name Unknown Organization [facility] Address [address] [place] [address] Phone [phone] Care Team Providers Care Surgical Technician Name Role Phone Verónica Benavides MD Primary Care Provide r Reason for Visit * Reason Onset Date Comments Advice 06/11/2024 Encounter Details Date Type Department Care Team (Late st Contact Info) Description 06/11/2024 Telephone Hematology/Oncology [facility] [address] [place] [address] Services, Scheduling [address] [place] [address] Advice Allergies Active Allergy Reactions Criticality Noted Date Comments Adhesive Tape Medium 01/30/2022 Ibuprofen Hives 01/13/2012 Aspirin Hives,Rash 09/15/2000 Sulfamethoxazole-Trimeth oprim Nausea/vomiting,Othe r (Please comment) 10/27/2020 Dizziness Ciprofloxacin Hcl 06/16/2019 Hoarse, dizzy,disoriented Morphine 09/21/2021 Blacked out Penicillins Hives,Rash 09/15/2000 Prednisone 12/30/2017 Weakness/memory changes/blurred vision documented as of this encounter (statuses as of 06/11/2024) Medications Medication Sig Dispensed Refills Start Date [...] Strip 1 05/30/2023 Active OneTouch Delica Plus [id number] :Type 2 diabetes mellitus with hemoglobin A1c [...] artery disease involving [place] coronary artery of [place] heart without angina pectoris,HTN, goal below 140/90 [...] as of this encounter (statuses as of 06/11/2024) Active Problems Problem Noted Date Diagnosed Date [...] disease invo lving [place] coronary artery of [place] heart without angina pectoris 07/03/2012 Overview: 60% [...] as of this encounter (statuses as of 06/11/2024) Resolved Problems Problem Noted Date Diagnosed Date [...] as of this encounter (statuses as of 06/11/2024) Immunizations Name Administration Dates Next Due COVID-19 mRNA, LNP-s, No Pre serve, 2-Dose Series ([employer]) 08/29/2021,10/23/2020,10/02/2020 COVID-19, MRNA-LNP, 23-24, P F, 30 MCG/0.3 mL, 12 YRS AND ABOVE, IM [facility] 08/04/2023 Covid-19, Mrna, Lnp-s, Pf, B ivalent, 30 Mcg, IM, 12 yrs and above ([employer]) 08/02/2022 Pneumococcal Conjugate Vacc, 13 Valent (Prevnar) [...] Telephone Encounter - Kathe Carrion LPN - 06/11/2024 12:04 PM EDT Noted, please see New Patient Triage for further encounters. * Telephone Encounter - Jeanie Walker OSA - 06/11/2024 11:40 AM EDT Pt daughter Josselyn calling in has a message for Mary, at this time we have decided to not do anything/make an appointment. Will let you know when she thinks they are going to make appointment. documented in this encounter Plan of Treatment Upcoming Encounters Date Type Department Care Team (Late st Contact Info) Description 10/01/2024 1:00 PM EST Telemedicine Family Medicine [address] [place] [phone] Kusum Jones CRNP [address] [place] [address] [place] [address] 10/13/2024 11:30 AM EST Telemedicine Urology, [address] [place] [address] Chandler Pena MD [address] [place] [address] 11/24/2024 1:40 PM EDT Office Visit Dermatology [address] [place] [address] Sheryl Pena PA-C [address] [place] [address] [place] [address] 04/18/2025 1:20 PM EDT Telemedicine Family [address] [place] [phone] Verónica Benavides MD [address] [place] [address] [place] [address] Health Maintenance Due Date Last Done Comments [...] Additional history exists CKD PHOS USE SMARTSET 72961 05/05/202504/25, 04/30/2024, 04/02/2024, Additional history exists CKD HGB USE SMARTSET 02065 05/26/202505/26, 05/26/2024, 05/07/2024, Additional history exists Pneumococcal [...] Documents on File Type Date Recorded 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
--- OUTSIDE RECORDS SUMMARY | 2024-07-04 18:47 | External Medical Summary | Summary of Care ---
Author Name Unknown Organization [facility] Address [address] [place] [address] Phone [phone] Care Team Providers Care Home Care Liaison Name Role Phone Verónica Benavides MD Primary Care Provide r Reason for Visit * Reason Onset Date Comments Advice 06/16/2024 Pt daughter is r equesting to change appt from in-person to a video appt on May at 2:20 hrs, Appointment 06/16/2024 Encounter Details Date Type Department Care Team (Late st Contact Info) Description 06/16/2024 Telephone Family Medicine [address] [phone] Verónica Benavides MD [address] [place] [address] [place] [address] Advice (Pt daughter is requesting to parikh... Allergies Active Allergy Reactions Criticality Noted Date Comments Adhesive Tape Medium 01/30/2022 Ibuprofen Hives 01/13/2012 Aspirin Hives,Rash 09/15/2000 Sulfamethoxazole-Trimeth oprim Nausea/vomiting,Othe r (Please comment) 10/27/2020 Dizziness Ciprofloxacin Hcl 06/16/2019 Hoarse, dizzy,disoriented Morphine 09/21/2021 Blacked out Penicillins Hives,Rash 09/15/2000 Prednisone 12/30/2017 Weakness/memory changes/blurred vision documented as of this encounter (statuses as of 06/17/2024) Medications Medication Sig Dispensed Refills Start Date End Date Status AlphaSightsTouch Verio w/Device Kit Use up to 4 [...] Strip 1 05/30/2023 Active OneTouch Delica Plus [id number] :Type 2 diabetes mellitus with hemoglobin A1c goal of less than 8.0% ([facility]) Test up to two times daily or as directed by [facility] pharmacist 200 Each 3 07/11/2023 Active Estrogens Conjugated 0.625 MG/GM Vaginal Cream (Premarin) Administer 0.5 g into the vagina every night at bedtime. Pea-sized amount around vulvar area nightly 30 g 5 07/14/2023 Active DIURETIC TITRATION PLAN If no improvement on day 3, contact 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 Triage Call: Reviewed last C&S - [...] as of this encounter (statuses as of 06/17/2024) Resolved Problems Problem Noted Date Diagnosed Date [...] as of this encounter (statuses as of 06/17/2024) Immunizations Name Administration Dates Next Due COVID-19 mRNA, LNP-s, No Pre serve, 2-Dose Series ([employer]) 08/29/2021,10/23/2020,10/02/2020 COVID-19, MRNA-LNP, 23-24, P F, 30 MCG/0.3 mL, 12 YRS AND ABOVE, IM ([employer]) 08/04/2023 Covid-19, Mrna, Lnp-s, Pf, B ivalent, 30 Mcg, IM, 12 yrs and above ([employer]) 08/02/2022 Pneumococcal Conjugate Vacc, 13 Valent (Prevnar) [...] Telephone Encounter - Nato Friend OSA - 06/17/2024 9:06 AM EDT Appt has been changed. * Telephone Encounter - Efe Villavicencio OSA - 06/16/2024 10:49 AM EDT Pt daughter is requesting to change appt from in-person to a video appt on May at 2:20 hrs, Please to call pt back documented in this encounter Plan of Treatment Upcoming Encounters Date Type Department Care Team (Late st Contact Info) Description 06/18/2024 2:20 PM EDT Telemedicine [address] [place] [phone] Verónica Benavides MD [address] [place] [address] [place] [address] 06/21/2024 3:00 PM EDT [facility] Visit [facility] [address] [place] [address] Brandt Santacruz PA-C [address] [place] [address] 10/01/2024 1:00 PM EST Telemedicine Family Medicine [address] [place] [phone] [address] [place] [address] 10/13/2024 11:30 AM EST Telemedicine Urology, [facility] 132 [facility] [place] [address] Chandler Pena MD [address] [place] [address] 11/24/2024 1:40 PM EDT Office Visit Dermatology [address] [place] [address] Sheryl Pena PA-C [address] [place] [address] [place] [address] 04/18/2025 1:20 PM EDT Telemedicine Family Medicine [address] [place] [phone] Verónica Benavides MD [address] [place] [address] [place] [address] Health Maintenance Due Date Last Done Comments [...] Additional history exists CKD PHOS USE SMARTSET 06224 05/05/202504/25, 04/30/2024, 04/02/2024, Additional history exists CKD HGB USE SMARTSET 12802 05/26/202505/26, 05/26/2024, 05/07/2024, Additional history exists Pneumococcal [...] on File Type Date Recorded 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
--- OUTSIDE RECORDS SUMMARY | 2024-07-04 18:47 | External Medical Summary | Summary of Care ---
Author Name Unknown Organization [facility] Address [address] [place] [address] Phone [phone] Care Team Providers Care Medical Office Representative Name Role Phone Verónica Benavides MD Primary Care Provide r Reason for Visit * Reason Onset Date Comments Referral 06/07/2024 SP 10-Day Encounter Details Date Type Department Care Team (Late st Contact Info) Description 06/07/2024 New Patient Triage (CENTER DIRECTOR USE ONLY) Hematology/Oncology [facility] [address] [facility] [place] [address] Mary Knox CRNP [address] [place] [address] Referral (SP 10-Day) Allergies Active Allergy [...] Strip 1 05/30/2023 Active OneTouch Delica Plus [id number] :Type 2 diabetes mellitus with hemoglobin A1c goal of less than 8.0% ([facility]) Test up to two times daily or as directed by [facility] pharmacist 200 Each 3 07/11/2023 Active Estrogens [...] schemic cardiomyopathy (HCC),Coronary artery disease involving [place] coronary artery of [place] heart without angina pectoris,HTN, goal below 140/90 [...] synthroid Coronary artery disease invo lving [place] coronary artery of [place] heart without angina pectoris 07/03/2012 Overview: 60% [...] mRNA, LNP-s, No Pre serve, 2-Dose Series ([employer]) 08/29/2021,10/23/2020,10/02/2020 COVID-19, MRNA-LNP, 23-24, P F, 30 MCG/0.3 mL, 12 YRS AND ABOVE, IM ([employer]) 08/04/2023 Covid-19, Mrna, Lnp-s, Pf, B ivalent, [...] Progress Notes * Kathe Carrion LPN - 06/11/2024 12:02 PM EDT Mary, please note below. Jeanie Walker OSA17 minutes ago (11:42 AM) Pt daughter Josselyn calling in has a message for Mary, at this time we have decided to not do anything/make an appointment. Will let you know when she thinks they are going to make appointment. * Kathe Carrion LPN - 06/11/2024 12:00 PM EDT Discussed care plan with patient or proxy?: Yes Communicated with patient on Date (mm/dd/yyyy): 06/11/2024 at Time ([facility]): 11:04 AM Additional imaging needed: No Additional imaging orders pended: No Further labs recommended and ordered: No Bone Marrow biopsy recommended:No [facility] clinic review recommended: No * Mary Knox CRNP - 06/11/2024 11:04 AM EDT Hematology New Referral Triage Note 89 y/o female referred for anemia. PMH of CHF, DM type II, recurrent UTI's, HTN, stage 3a CKD, lymphedema, morbid obesity, CAD, severe aortic stenosis, hypothyroidism, OA, and DLD. Please see Ask A Doc dated 05/21/24 for further information. 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 Could consider treating with JASSI in setting of CKD. No nutritional deficiencies present. Patient has difficulty leaving home d/t mobility status. Would request injectionsbe able to be given at home. Called patient's daughter Josselyn to discuss above. Discussed that at this time patient's Hgb is 9.6 and would treatment to goal Hgb of 10. Unsure if insurance would cover JASSI at home. Daughter is willing to administer injections if this is an option. Josselyn will discuss Hematology referral with her siblings and will call back if any further questions or if ready to schedule appointment. Timeframe to be seen: 10 days Can the patient be seen by an advanced practitioner? yes Are additional labs or studies needed prior to initial visit? no Is an infusion appointment needed after initial visit? no Discussed care plan with patient or proxy?: Yes see above Communicated with patient on Date (mm/dd/yyyy): 06/11/24 at Time ([facility]): 1045 Previously seen hematology? No GASTON Lange Hematology * Kathe Carrion LPN - 06/07/2024 11:55 AM EDT Images from the original note were not included. New Patient Triage What is the diagnosis/reason for referral?: Anemia, unspecified Enter order ID here: [id number] Specialty specific documentation: Hematology/Oncology NEW PATIENT - [...] st Contact Info) Description 10/01/2024 1:[address] [phone] Kusum Jones CRNP [address] [place] [address] [place] [address] 10/13/2024 11:30 AM EST Telemedicine Urology, [facility] 132 [facility] [place] [address] Chandler Pena MD [address] [place] [address] 11/24/2024 1:40 PM EDT Office Visit Dermatology [address] [place] [address] Sheryl Pena PA-C [address] [place] [address] [place] [address] 04/18/2025 1:20 PM EDT Telemedicine Family Medicine [address] [place] [phone] Verónica Benavides MD [address] [place] [address] [place] [address] Health Maintenance Due Date Last Done Comments [...] Additional history exists CKD PHOS USE SMARTSET 94087 05/05/202504/25, 04/30/2024, 04/02/2024, Additional history exists CKD HGB USE SMARTSET 36710 05/26/202505/26, 05/26/2024, 05/07/2024, Additional history exists Pneumococcal [...] Documents on File Type Date Recorded Patient Entry Level Expl anation Advance Directives and Living Will 08/10/2021 ADVANCE DIRECTIVE / LIVING WILL LIVING WILL Healthcare Agents on File Name Relationship Healthcare Agent [facility] p Communication Josselyn Judd Adult Child Health Care Power of Attor nathalie Care Teams Medical Office Representative Relationship Specialty Start Date End Date Verónica Benavides MD [address] [place] [address] [place] [phone] PCP - General Family Medicine 09/16/14 documented as of this encounter
--- OUTSIDE RECORDS SUMMARY | 2024-07-04 18:47 | External Medical Summary | Summary of Care ---
Author Name Unknown Organization [facility] Address [address] [place] [address] Phone [phone] Care Team Providers Care Maintenance Mechanic Telephone Name Role Phone Verónica Benavides MD Primary Care Provide r Encounter Details Date Type Department Care Team (Late st Contact Info) Description 06/14/2024 Population Health External Data Unspecified Department Allergies Active Allergy Reactions Criticality Noted Date Comments Adhesive Tape Medium 01/30/2022 Ibuprofen Hives 01/13/2012 Aspirin Hives,Rash 09/15/2000 Sulfamethoxazole-Trimeth oprim Nausea/vomiting,Othe r (Please comment) 10/27/2020 Dizziness Ciprofloxacin Hcl 06/16/2019 Hoarse, dizzy,disoriented Morphine 09/21/2021 Blacked out Penicillins Hives,Rash 09/15/2000 Prednisone 12/30/2017 Weakness/memory changes/blurred vision documented as of this encounter (statuses as of 06/14/2024) Medications Medication Sig Dispensed Refills Start Date [...] Strip 1 05/30/2023 Active OneTouch Delica Plus [id number] :Type 2 diabetes mellitus with hemoglobin A1c [...] XL)Indications:Non-i schemic cardiomyopathy (HCC),Coronary artery disease involving [place] coronary artery of [place] heart without angina pectoris,HTN, goal below 140/90 [...] as of this encounter (statuses as of 06/14/2024) Active Problems Problem Noted Date Diagnosed Date [...] Continue synthroid Coronary artery disease invo lving [place] coronary artery of [place] heart without angina pectoris 07/03/2012 Overview: 60% [...] as of this encounter (statuses as of 06/14/2024) Resolved Problems Problem Noted Date Diagnosed Date [...] as of this encounter (statuses as of 06/14/2024) Immunizations Name Administration Dates Next Due COVID-19 mRNA, LNP-s, No Pre serve, 2-Dose Series ([employer]) 08/29/2021,10/23/2020,10/02/2020 COVID-19, MRNA-LNP, 23-24, P F, 30 MCG/0.3 mL, 12 YRS AND ABOVE, IM ([employer]) 08/04/2023 Covid-19, Mrna, Lnp-s, Pf, B ivalent, [...] 1:00 PM EST Telemedicine Family Medicine [address] [place] [phone] Kusum Jones CRNP [address] [place] [address] [place] [address] 10/13/2024 11:30 AM EST Telemedicine Urology, [facility] 132 [facility] [place] [address] Chandler Pena MD [address] [place] [address] 11/24/2024 1:40 PM EDT Office Visit Dermatology [address] [place] [address] Sheryl Pena PA-C [address] [place] [address] [place] [address] 04/18/2025 1:20 PM EDT Telemedicine Family Medicine [address] [place] [phone] Verónica Benavides MD [address] [place] [address] [place] [address] Health Maintenance Due Date Last Done Comments [...] Additional history exists CKD PHOS USE SMARTSET 39905 05/05/202504/25, 04/30/2024, 04/02/2024, Additional history exists CKD HGB USE SMARTSET 73643 05/26/202505/26, 05/26/2024, 05/07/2024, Additional history exists Pneumococcal [...] on File Type Date Recorded 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
--- OUTSIDE RECORDS SUMMARY | 2024-07-04 18:47 | External Medical Summary | Summary of Care ---
Author Name Unknown Organization [facility] Address [address] [place] [address] Phone [phone] Care Team Providers Care Ladies Suit Operator Name Role Phone Verónica Benavides MD Primary Care Provide r Reason for Visit * Reason Onset Date Comments Appointment 06/16/2024 Encounter Details Date Type Department Care Team (Late st Contact Info) Description 06/16/2024 Telephone [facility] [place] [address] [place] [address] Liliam Hsieh, BETTY [address] [place] [address] Appointment (//) Allergies Active Allergy Reactions Criticality Noted Date Comments Adhesive Tape Medium 01/30/2022 Ibuprofen Hives 01/13/2012 Aspirin Hives,Rash 09/15/2000 Sulfamethoxazole-Trimeth oprim Nausea/vomiting,Othe r (Please comment) 10/27/2020 Dizziness Ciprofloxacin Hcl 06/16/2019 Hoarse, dizzy,disoriented Morphine 09/21/2021 Blacked out Penicillins Hives,Rash 09/15/2000 Prednisone 12/30/2017 Weakness/memory changes/blurred vision documented as of this encounter (statuses as of 06/16/2024) Medications Medication Sig Dispensed Refills Start Date [...] Strip 1 05/30/2023 Active OneTouch Delica Plus [id number] :Type 2 diabetes mellitus with hemoglobin A1c goal of less than 8.0% ([facility]) Test up to two times daily or as directed by [facility] pharmacist 200 Each 3 [...] XL)Indications:Non-i schemic cardiomyopathy (HCC),Coronary artery disease involving [place] coronary artery of alat[place] heart without angina pectoris,HTN, goal below 140/90 [...] as of this encounter (statuses as of 06/16/2024) Active Problems Problem Noted Date Diagnosed Date [...] Continue synthroid Coronary artery disease invo lving alatna coronary artery of alat[place] heart without angina pectoris 07/03/2012 Overview: 60% [...] as of this encounter (statuses as of 06/16/2024) Resolved Problems Problem Noted Date Diagnosed Date [...] as of this encounter (statuses as of 06/16/2024) Immunizations Name Administration Dates Next Due COVID-19 mRNA, LNP-s, No Pre serve, 2-Dose Series ([employer]) 08/29/2021,10/23/2020,10/02/2020 COVID-19, MRNA-LNP, 23-24, P F, 30 MCG/0.3 mL, 12 YRS AND ABOVE, IM ([employer]-ComirnatAdex[employer]) 08/04/2023 Covid-19, Mrna, Lnp-s, Pf, B ivalent, [...] Telephone Encounter - Liliam Hsieh OSA - 06/16/2024 10:43 AM EDT Request form Teressa Ramirez to move pt form Noam's schedule and ask if Regla could see him 06/21@[address] [place] [id number] as a JERICHO and her daughter was agreeable to this documented in this encounter Plan of Treatment Upcoming Encounters Date Type Department Care Team (Late st Contact Info) Description 06/18/2024 2:20 PM EDT Office Visit Family Medicine [address] [place] [phone] Verónica Benavides MD [address] [place] [address] [place] [address] 06/21/2024 3:00 PM EDT [facility] Visit [facility] [place] [address] Brandt Santacruz PA-C [address] [place] [address] 10/01/2024 1:00 PM EST Telemedicine Family Medicine [address] [place] [address] Kusum Jones CRNP [address] [place] [address] [place] [address] 10/13/2024 11:30 AM EST [facility]icine [facility], [facility] [place] [address] Chandler Pena MD [address] [place] [address] 11/24/2024 1:40 PM EDT Office Visit Dermatology [address] [place] [address] Sheryl Pena PA-C [address] [place] [address] [place] [address] 04/18/2025 1:20 PM EDT Telemedicine Family Medicine [address] [place] [phone] Verónica Benavides MD [address] [place] [address] [place] [address] Health Maintenance Due Date Last Done Comments [...] Additional history exists CKD PHOS USE SMARTSET 67093 05/05/202504/25, 04/30/2024, 04/02/2024, Additional history exists CKD HGB USE SMARTSET 38352 05/26/202505/26, 05/26/2024, 05/07/2024, Additional history exists Pneumococcal [...] Documents on File Type Date Recorded 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
--- OUTSIDE RECORDS SUMMARY | 2024-07-04 18:47 | External Medical Summary | Summary of Care ---
Author Name Unknown Organization [facility] Address [address] [place] [address] Phone [phone] Care Team Providers Care Overcaster Name Role Phone Verónica Benavides MD Primary Care Provide r Reason for Visit * Reason Onset Date Comments Referral 06/07/2024 SP 10-Day Encounter Details Date Type Department Care Team (Late st Contact Info) Description 06/07/2024 New Patient Triage (GRINDING WHEEL FACER USE ONLY) Hematology/Oncology [facility] [address] [facility] [place] [address] Mary Knox CRNP [address] [place] [address] Referral (SP 10-Day) Allergies Active Allergy [...] Strip 1 05/30/2023 Active OneTouch Delica Plus [id number] :Type 2 diabetes mellitus with hemoglobin A1c goal of less than 8.0% ([facility]) Test up to two times daily or as directed by [facility] pharmacist 200 Each 3 [...] mRNA, LNP-s, No Pre serve, 2-Dose Series ([employer]) 08/29/2021,10/23/2020,10/02/2020 COVID-19, MRNA-LNP, 23-24, P F, 30 MCG/0.3 mL, 12 YRS AND ABOVE, IM (FirstString-ComirnatMemopal) 08/04/2023 Covid-19, Mrna, Lnp-s, Pf, B ivalent, [...] as of this encounter Progress Notes * Mary Knox CRNP - 06/11/2024 11:04 [...] patient on Date (mm/dd/yyyy): 06/11/24 at Time ([facility]): 1045 Previously seen hematology? No [facility] * Kathe Carrion LPN - 06/07/2024 11:55 AM EDT Images from the original note were not included. New Patient Triage What is the diagnosis/reason for referral?: Anemia, unspecified Enter order ID here: [id number] Specialty specific documentation: Hematology/Oncology NEW PATIENT - [...] 1:00 PM EST Telemedicine Family Medicine [address] [place] [phone] Kusum Jones CRNP [address] [place] [address] [place] [address] 10/13/2024 11:30 AM EST Telemedicine Urology, [address] [place] [address] Chandler Pena MD [address] [place] [address] 11/24/2024 1:40 PM EDT Office Visit Dermatology [address] [place] [address] Sheryl Pena PA-C [address] [place] [address] [place] [address] 04/18/2025 1:20 PM EDT Telemedicine Family [address] [place] [phone] Verónica Benavides MD [address] [place] [address] [place] [address] Health Maintenance Due Date [...] Additional history exists CKD PHOS USE SMARTSET 28471 05/05/202504/25, 04/30/2024, 04/02/2024, Additional history exists CKD HGB USE SMARTSET 99698 05/26/202505/26, 05/26/2024, 05/07/2024, Additional history exists Pneumococcal [...] Documents on File Type Date Recorded 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
--- OUTSIDE RECORDS SUMMARY | 2024-07-04 18:47 | External Medical Summary | Summary of Care ---
Author Name Unknown Organization [facility] Address [address] [place] [address] Phone [phone] Care Team Providers Care Piling Setter Name Role Phone Verónica Benavides MD Primary Care Provide r Reason for Visit * Reason Onset Date Comments Order Request 06/04/2024 Encounter Details Date Type Department Care Team (Late st Contact Info) Description 06/04/2024 Telephone Family [address] [phone] Verónica Benavides MD [address] [place] [address] [place] [address] Order Request Allergies Active Allergy Reactions Criticality Noted Date Comments Adhesive Tape Medium 01/30/2022 Ibuprofen Hives 01/13/2012 Aspirin Hives,Rash 09/15/2000 Sulfamethoxazole-Trimeth oprim Nausea/vomiting,Othe r (Please comment) 10/27/2020 Dizziness Ciprofloxacin Hcl 06/16/2019 Hoarse, dizzy,disoriented Morphine 09/21/2021 Blacked out Penicillins Hives,Rash 09/15/2000 Prednisone 12/30/2017 Weakness/memory changes/blurred vision documented as of this encounter (statuses as of 06/15/2024) Medications Medication Sig Dispensed Refills Start Date [...] long-term current use of insulin ([facility]),Type 2 diabetes mellitus with hemoglobin A1c goal of less than 8.0% ([facility]) TEST UP TO FOUR TIMES DAILY 400 Strip 1 05/30/2023 Active OneTouch Delica Plus [id number] :Type 2 diabetes mellitus with hemoglobin A1c [...] as of this encounter (statuses as of 06/15/2024) Active Problems Problem Noted Date Diagnosed Date [...] as of this encounter (statuses as of 06/15/2024) Resolved Problems Problem Noted Date Diagnosed Date [...] as of this encounter (statuses as of 06/15/2024) Immunizations Name Administration Dates Next Due COVID-19 mRNA, LNP-s, No Pre serve, 2-Dose Series ([employer]) 08/29/2021,10/23/2020,10/02/2020 COVID-19, MRNA-LNP, 23-24, P F, 30 MCG/0.3 mL, 12 YRS AND ABOVE, IM ([facility]) 08/04/2023 Covid-19, Mrna, Lnp-s, Pf, [...] chair. If this has to go through [facility], we will need to set up appt with provider to discuss need for chair. * Telephone Encounter - Verónica Benavides MD - 06/10/2024 1:10 PM EDT Signed * Telephone Encounter - Medina Braswell RN - 06/10/2024 1:02 PM EDT Needs sent to [facility] * Telephone Encounter - Tarah Culver [...] preference. Fax Number, if applicable: Fax to [facility] when completed at [phone] If the caller is not a current [...] 1:00 PM EST Telemedicine Family Medicine [address] [place] [phone] Kusum Jones CRNP [address] [place] [address] [place] [address] 10/13/2024 11:30 AM EST Telemedicine Urology, [facility] [place] [address] Chandler Pena MD 27 [facility] [place] [address] 11/24/2024 1:40 PM EDT Office Visit Dermatology [address] [place] [address] Sheryl Pena PA-C [address] [place] [address] [place] [address] 04/18/2025 1:20 PM EDT Telemedicine Family Medicine [address] [place] [phone] Verónica Benavides MD [address] [place] [address] [place] [address] Health Maintenance Due Date Last Done Comments [...] Additional history exists CKD PHOS USE SMARTSET 50380 05/05/202504/25, 04/30/2024, 04/02/2024, Additional history exists CKD HGB USE SMARTSET 75803 05/26/202505/26, 05/26/2024, 05/07/2024, Additional history exists Pneumococcal [...] Documents on File Type Date 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
--- OUTSIDE RECORDS SUMMARY | 2024-07-04 18:47 | External Medical Summary | Summary of Care ---
Author Name Unknown Organization [facility] Address [address] [place] [address] Phone [phone] Care Team Providers Care Media Strategist Name Role Phone Verónica Benavides MD Primary Care Provide r Reason for Visit * Reason Onset Date Comments Referral 06/07/2024 SP 10-Day Encounter Details Date Type Department Care Team (Late st Contact Info) Description 06/07/2024 New Patient Triage (PATENT LEATHER SORTER USE ONLY) Hematology/Oncology [facility] [place] [address] Mary Knox CRNP [address] [place] [phone] Referral (SP 10-Day) Allergies Active Allergy [...] Strip 1 05/30/2023 Active OneTouch Delica Plus [id number] :Type 2 diabetes mellitus with hemoglobin A1c goal of less than 8.0% ([facility]) Test up to two times daily or as directed by [facility] pharmacist 200 Each 3 07/11/2023 Active [...] schemic cardiomyopathy (HCC),Coronary artery disease involving [place] coronary artery of [place] heart without angina pectoris,HTN, goal below 140/90 [...] synthroid Coronary artery disease invo lving [place] coronary artery of [place] heart without angina pectoris 07/03/2012 Overview: 60% [...] LNP-s, No Pre serve, 2-Dose Series ([employer]) 08/29/2021,10/23/2020,10/02/2020 COVID-19, MRNA-LNP, 23-24, P F, 30 MCG/0.3 mL, 12 YRS AND ABOVE, IM ([employer]-ComirnatSignal360 (formerly [employer])) 08/04/2023 Covid-19, Mrna, Lnp-s, Pf, B ivalent, [...] Date (mm/dd/yyyy): 06/11/24 at [facility] 1045 Previously seen hematology? No [facility] * Kathe Carrion LPN - 06/07/2024 11:55 AM EDT Images from the original note were not included. New Patient Triage What is the diagnosis/reason for referral?: Anemia, unspecified Enter order ID here: [id number] Specialty specific documentation: Hematology/Oncology NEW PATIENT - [...] 10/01/2024 1:00 PM EST Telemedicine Family Medicine [address] [place] [phone] Kusum Jones CRNP [address] [place] [address] [place] [address] 10/13/2024 11:30 AM EST Telemedicine Urology, [address] [place] [address] Chandler Pena MD [address] [place] [address] 11/24/2024 1:40 PM EDT Office Visit Dermatology [address] [place] [address] Sheryl Pena PA-C [address] [place] [address] [place] [address] 04/18/2025 1:20 PM EDT Telemedicine Family [address] [place] [phone] Verónica Benavides MD [address] [place] [address] [place] [address] Health Maintenance Due Date [...] Additional history exists CKD PHOS USE SMARTSET 87919 05/05/202504/25, 04/30/2024, 04/02/2024, Additional history exists CKD HGB USE SMARTSET 80634 05/26/202505/26, 05/26/2024, 05/07/2024, Additional history exists Pneumococcal [...] Documents on File Type Date Recorded 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
--- OUTSIDE RECORDS SUMMARY | 2024-07-04 18:48 | External Medical Summary | Summary of Care ---
Author Name Unknown Organization [facility] Address [address] [place] [address] Phone [phone] Care Team Providers Care Pesticide Chemist Name Role Phone Verónica Benavides MD Primary Care Provide r Reason for Visit * Reason Onset Date Comments [facility]: Maintenance 06/10/2024 Encounter Details Date Type Department Care Team (Late st Contact Info) Description 06/10/2024 10:45 AM EDT Scheduled Telephone [facility], [facility] 132 [facility] [place] [address] Coordinator, [facility] 132 [facility] [place] [address] Allergies Active Allergy Reactions Criticality Noted Date Comments Adhesive Tape Medium 01/30/2022 Ibuprofen Hives 01/13/2012 Aspirin Hives,Rash 09/15/2000 Sulfamethoxazole-Trimeth oprim Nausea/vomiting,Othe r (Please comment) 10/27/2020 Dizziness Ciprofloxacin Hcl 06/16/2019 Hoarse, dizzy,disoriented Morphine 09/21/2021 Blacked out Penicillins Hives,Rash 09/15/2000 Prednisone 12/30/2017 Weakness/memory changes/blurred vision documented as of this encounter (statuses as of 06/10/2024) Medications Medication Sig Dispensed Refills Start Date End Date Status [employer] Verio w/Device Kit Use up to 4 [...] Strip 1 05/30/2023 Active OneTouch Delica Plus [id number] :Type 2 diabetes mellitus with hemoglobin A1c goal of less than 8.0% ([facility]) Test up to two times daily or as directed by [facility] pharmacist 200 Each 3 07/11/2023 Active Estrogens Conjugated 0.625 MG/GM Vaginal Cream (Premarin) Administer 0.5 g into the vagina every night at bedtime. Pea-sized amount around vulvar area nightly 30 g 5 07/14/2023 Active DIURETIC TITRATION PLAN If no improvement on day 3, contact [facility] for possible home visit 1 Each 11/28/2023 [...] as of this encounter (statuses as of 06/10/2024) Active Problems Problem Noted Date Diagnosed Date [...] as of this encounter (statuses as of 06/10/2024) Resolved Problems Problem Noted Date Diagnosed Date [...] as of this encounter (statuses as of 06/10/2024) Immunizations Name Administration Dates Next Due COVID-19 mRNA, LNP-s, No Pre serve, 2-Dose Series ([employer]) 08/29/2021,10/23/2020,10/02/2020 COVID-19, MRNA-LNP, 23-24, P F, 30 MCG/0.3 mL, 12 YRS AND ABOVE, IM ([employer]) 08/04/2023 Covid-19, Mrna, Lnp-s, Pf, B [...] Telephone Encounter - Tonia Mera LPN - 06/10/2024 2:16 PM EDT Added to hospital list to follow d/c * Telephone Encounter - Angie Lin RN - 06/10/2024 1:55 PM EDT Spoke to Kenneth at [facility] ([phone]), confirmed patient is currently admitted to hospital, unsure of admitting dx. Routing to care team Routing to [facility] to follow for hospital discharge Angie BRADFORDN, RN [facility] assistant designer Navigator documented in this encounter Plan of Treatment Upcoming Encounters Date Type Department Care Team (Late st Contact Info) Description 06/11/2024 4:00 PM EDT Home Visit [facility] [address] [place] [address] Destiny Schultz, RN [address] [place] [address] 10/01/2024 1:00 PM [facility] Telemedicine Family Medicine [address] [phone] Kusum Jones CRNP [address] [place] [address] [place] [address] 10/13/2024 11:30 AM EST Telemedicine Urology, [facility] [place] [address] Chandler Pena MD [address] [place] [address] 11/24/2024 1:40 PM EDT Office Visit Dermatology [address] [place] [address] Sheryl Pena PA-C [address] [place] [address] [place] [address] 04/18/2025 1:20 PM EDT Telemedicine Family Medicine [address] [place] [phone] Verónica Benavides MD [address] [place] [address] [place] [address] Health Maintenance Due Date Last Done Comments [...] Additional history exists CKD PHOS USE SMARTSET 43438 05/05/202504/25, 04/30/2024, 04/02/2024, Additional history exists CKD HGB USE SMARTSET 66509 05/26/202505/26, 05/26/2024, 05/07/2024, Additional history exists Pneumococcal [...] Documents on File Type Date Recorded Patient Dive Supervisor Expl anation Advance Directives and Living Will 08/10/2021 ADVANCE DIRECTIVE / LIVING WILL LIVING WILL Healthcare Agents on File Name Relationship Healthcare Agent Relationshi p Communication Josselyn Judd Adult Child Health Care Power of Attor nathalie Care Teams Pesticide Chemist Relationship Specialty Start Date End Date Verónica Benavides MD [address] [place] [address] [place] [address] PCP - General Family Medicine 09/16/14 documented as of this encounter
--- OUTSIDE RECORDS SUMMARY | 2024-07-04 18:48 | External Medical Summary ---
Author Name Unknown Address Unknown Organization K01:[facility] [address] [place] [address] Laboratory Report Ordering Provider Test Date Status ALEX NAPIER 2024 15:09:17 Final Observation Date Value Abnormality Reference (Units ) Status Magnesium 2024 15:09:17 1.8 1.5-2.6 (m g/dL) Final Performing Location [facility] - [address] [place] [address]
--- OUTSIDE RECORDS SUMMARY | 2024-07-04 18:48 | External Medical Summary ---
Author Name Unknown Address Unknown Organization K01:[facility] [facility] [address] [place] [id number] Laboratory Report Ordering Provider Test Date Status ALEX NAPIER 2024 15:09:17 Final Observation Date Value Abnormality Reference (Units ) Status BUN 2024 15:09:17 19 6-20 (mg/dL) Final Creatinine 2024 15:09:17 0.9 0.5-1.0 (mg/dL) Final Glomerular filtration rate/1.73 sq M.predicted [Volume Rate/Area] in Serum, Plasma or Blood by Creatinine-based formula (CKD-EPI) 2024 15:09:17 62 >=60 (mL/min) Final eGFR is calculated based on the CKD-EPI 2020 equation. Sodium 2024 15:09:17 140 135-146 (m mol/L) Final Potassium 2024 15:09:17 3.7 3.5-5.1 (m mol/L) Final Cl 2024 15:09:17 101 98-107 (mm ol/L) Final CO2 2024 15:09:17 26 22-32 (mmo l/L) Final Anion gap 2024 15:09:17 13 7-15 (mmol /L) Final Glucose 2024 15:09:17 214 Above high normal 70 -120 (mg/dL) Final Albumin 2024 15:09:17 3.6 Below low normal 3.8 -5.0 (g/dL) Final AST (Aspartate aminotransferase) 2024 15:09:17 16 10-35 (U/L) Fin al Alk Phos 2024 15:09:17 94 35-130 (U/ L) Final Bilirubin, Total 2024 15:09:17 0.3 <=1 .2 (mg/dL) Final Calcium 2024 15:09:17 8.1 Below low normal 8.4 -10.2 (mg/dL) Final Protein 2024 15:09:17 6.2 6.0-8.3 (g /dL) Final ALT (Alanine aminotransferase) 2024 15:09:17 6 Below low normal 10-35 (U/L) Final Performing Location [facility] [place] [address] [facility] [address]
--- OUTSIDE RECORDS SUMMARY | 2024-07-04 18:48 | External Medical Summary | Summary of Care ---
Author Name Unknown Organization [facility] Address [address] [place] [address] Phone [phone] Care Team Providers Care Pocket Machine Operator Name Role Phone Verónica Benavides MD Primary Care Provide r Encounter Details Date Type Department Care Team (Late Contact Info) Description 2024 4:00 PM EDT [facility] [address] [place] [address] Destiny Schultz, RN [address] [place] [address] Hypertensive heart and kidney disease with chronic [...] TIMES DAILY 400 Strip 1 05/30/2023 Active Hyperlite Mountain GearTouch Delica Plus [id number] :Type 2 diabetes mellitus with hemoglobin A1c [...] If no improvement on day 3, contact [facility] for possible home visit 1 [...] XL)Indications:Non-i schemic cardiomyopathy (HCC),Coronary artery disease involving che[place] coronary [...] mRNA, LNP-s, No Pre serve, 2-Dose Series ([employer]) 08/29/2021,10/23/2020,10/02/2020 COVID-19, MRNA-LNP, 23-24, P F, 30 MCG/0.3 mL, 12 YRS AND ABOVE, IM (Snagsta-Comircritical access hospitalGotaCopy) 08/04/2023 Covid-19, Mrna, Lnp-s, Pf, B ivalent, [...] Sign Reading Time Taken Comments Blood Pressure 108/64 2024 2:29 PM EDT Pulse - - Temperature - - Respiratory Rate 18 2024 2:29 PM EDT Oxygen Saturation 97% 2024 2:29 PM EDT Inhaled Oxygen Concentration - - Weight - - Height - - Body Mass Index - - documented in this encounter Progress Notes * Destiny Schultz RN - 2024 2:14 PM EDT Current Concerns: Patient seen for acute follow up visit- ordered IV lasix yesterday- unable to place IV Weight today 240- baseline weight 232 Failed attempt with oral DTP. IV placed- Labs obtained. Urine culture results- unable to treat infection with available IV ABT's in home Referred to ER by [facility]- Dr. Orona d/t urine culture results. Spoke with Cindy- charge nurse ER- report given. Physical Exam: Physical Exam Constitutional: Appearance: Normal appearance. She [...] and oriented to person, place, and time. Motor: Weakness present. Psychiatric: Mood and Affect: Mood normal. Behavior: Behavior normal. Review of Systems: Review of Systems Constitutional: Negative. HENT: Negative. Respiratory: Positive for shortness of breath. Cardiovascular: Positive for leg swelling. Gastrointestinal: Negative. Genitourinary: Negative. Hematological: Negative. Psychiatric/Behavioral: Negative. Care Plan Goal Progress: Orders Placed: No orders of the defined types were placed in this encounter. Medications Given: Care Gaps: Care Gaps Care gaps closed this contact:: Education;Lab/radiology testing coordinated;Diverts (06/10/24 1113) Type of divert: Divert ED (06/10/24 1113) Type of education: Clinical/disease (06/10/24 1113) documented in this encounter Plan of Treatment Upcoming Encounters Date Type Department Care Team (Late st Contact Info) Description 06/11/2024 4:00 PM EDT Home Visit [facility] [address] [place] [address] Destiny Schultz RN 132 [facility] [place] [address] 10/01/2024 1:00 PM EST Telemedicine Family Medicine [address] [place] [phone] Kusum Jones CRNP [address] [place] [address] [place] [address] 10/13/2024 11:30 AM EST Telemedicine Urology, [facility] 132 [facility] [place] [address] Chandler Pena MD [address] [place] [address] 11/24/2024 1:40 PM EDT Office Visit Dermatology [address] [place] [address] Sheryl Pena PA-C [address] [place] [address] [place] [address] 04/18/2025 1:20 PM EDT Telemedicine Family Medicine [address] [place] [phone] Verónica Benavides MD [address] [place] [address] [place] [address] Health Maintenance Due Date Last Done Comments [...] Additional history exists CKD PHOS USE SMARTSET 39097 05/05/202504/25, 04/30/2024, 04/02/2024, Additional history exists CKD HGB USE SMARTSET 21203 05/26/202505/26, 05/26/2024, 05/07/2024, Additional history exists Pneumococcal [...] Procedure Name Priority Date/Time Associated Diagnosis Comments COMPREHENSIVE METABOLIC PANEL Routine 2024 3:09 PM EDT 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) MAGNESIUM Routine 2024 3:09 PM EDT 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) documented in this encounter Results * MAGNESIUM (2024 3:09 PM EDT) Magnesium 1.8 1.5 - 2.6 mg/dL 06/10/2024 1:05 AM EDT LAB[facility]ORY [facility] Blood Venous blood specimen / Unknown Venipuncture / Unknown 2024 3:09 PM EDT 2024 3:27 PM EDT Mak Chaudhari DO LAB BLOOD ORDERABLES LABORATORY [facility] [address] [place] [address] * (ABNORMAL) COMPREHENSIVE METABOLIC PANEL (2024 3:09 PM EDT) BUN 19 6 - 20 mg/dL 06/10/2024 1:05 AM EDT [facility] CREATININE 0.9 0.5 - 1.0 mg/dL 06/10/2024 1:05 AM EDT LAB[facility]ATORY [facility] EGFR 62 >=60 mL/min 06/10/2024 1:05 AM EDT LAB[facility]ATORY [facility] Comment:eGFR is calculated b ased on the CKD-EPI 2020 equation. SODIUM 140 135 - 146 mmol/L 06/10/2024 1:05 AM EDT LAB[facility]ORY [facility] POTASSIUM 3.7 3.5 - 5.1 mmol/L 06/10/2024 1:05 AM EDT LAB[facility] CHLORIDE 101 98 - 107 mmol/L 06/10/2024 1:05 AM EDT LAB[facility] CO2 26 22 - 32 mmol/L 06/10/2024 1:05 AM EDT [facility] ANION GAP 13 7 - 15 mmol/L 06/10/2024 1:05 AM EDT LAB[facility] GLUCOSE 214(H) 70 - 120 mg/dL 06/10/2024 1:05 AM EDT LAB[facility] Albumin 3.6(L) 3.8 - 5.0 g/dL 06/10/2024 1:05 AM EDT LAB[facility] AST 16 10 - 35 U/L 06/10/2024 1:05 AM EDT LAB[facility] Alkaline Phosphatase 94 35 - 130 U/L 06/10/2024 1:05 AM EDT LAB[facility] Bilirubin, Total 0.3 <=1.2 mg/dL 06/10/2024 1:05 AM EDT LAB[facility] CALCIUM 8.1(L) 8.4 - 10.2 mg/dL 06/10/2024 1:05 AM EDT [facility] Protein 6.2 6.0 - 8.3 g/dL 06/10/2024 1:05 AM EDT LAB[facility]ATORY [facility] ALT 6(L) 10 - 35 U/L 06/10/2024 1:05 AM EDT LAB[facility] Blood Venous blood specimen / Unknown Venipuncture / Unknown 2024 3:09 PM EDT 2024 3:27 PM EDT Mak Chaudhari DO LAB BLOOD ORDERABLES LABORATORY [facility] [address] [place] [address] documented in this encounter Visit Diagnoses Diagnosis 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) documented in this encounter Advance Directives Documents on File Type Date Recorded Patient Packaging Mechanic Expl anation Advance Directives and Living Will 08/10/2021 ADVANCE DIRECTIVE / LIVING WILL LIVING WILL Healthcare Agents on File Name Relationship Healthcare Agent [facility] Communication Josselyn Judd Adult Child Health Care Power of Attor nathalie Care Teams Pocket Machine Operator Relationship Specialty Start Date End Date Verónica Benavides MD [address] [place] [address] [place] [phone] PCP - General Family Medicine 09/16/14 documented as of this encounter
--- OUTSIDE RECORDS SUMMARY | 2024-07-04 18:48 | External Medical Summary | Summary of Care ---
Author Name Unknown Organization [facility] Address [address] [place] [address] Phone [phone] Care Team Providers Care Product Ambassador Name Role Phone Verónica Benavides MD Primary Care Provide r Reason for Visit * Reason Onset Date Comments [facility]: Maintenance 06/10/2024 Encounter Details Date Type Department Care Team (Late st Contact Info) Description 06/10/2024 10:45 AM EDT Scheduled Telephone [facility], [facility] 132 [facility] [place] [address] Coordinator, [facility] 132 [facility] [place] [address] Allergies Active Allergy Reactions Criticality Noted Date Comments Adhesive Tape Medium 01/30/2022 Ibuprofen Hives 01/13/2012 Aspirin Hives,Rash 09/15/2000 Sulfamethoxazole-Trimeth oprim Nausea/vomiting,Othe r (Please comment) 10/27/2020 Dizziness Ciprofloxacin Hcl 06/16/2019 Hoarse, dizzy,disoriented Morphine 09/21/2021 Blacked out Penicillins Hives,Rash 09/15/2000 Prednisone 12/30/2017 Weakness/memory changes/blurred vision documented as of this encounter (statuses as of 06/10/2024) Medications Medication Sig Dispensed Refills Start Date End Date Status GreenFuelTouch Verio w/Device Kit Use up to 4 [...] Strip 1 05/30/2023 Active OneTouch Delica Plus [id number] :Type 2 diabetes mellitus with hemoglobin A1c [...] XL)Indications:Non-i schemic cardiomyopathy (HCC),Coronary artery disease involving [place] coronary artery of [place] heart without angina pectoris,HTN, goal below 140/90 [...] Continue synthroid Coronary artery disease invo lving [place] coronary artery of [place] heart without angina pectoris 07/03/2012 Overview: 60% [...] mRNA, LNP-s, No Pre serve, 2-Dose Series (SpineForm) 08/29/2021,10/23/2020,10/02/2020 COVID-19, MRNA-LNP, 23-24, P F, 30 MCG/0.3 mL, 12 YRS AND ABOVE, IM (Hurray!-ComirnatBravoSolution) 08/04/2023 Covid-19, Mrna, Lnp-s, Pf, B ivalent, [...] 1:55 PM EDT Spoke to Kenneth at [facility] ([phone]), confirmed patient is currently admitted to hospital, unsure of admitting dx. Routing to care team Routing to [facility] to follow for hospital discharge Angie BRADFORDN, RN [facility] icu specialist Navigator documented in this encounter Plan of Treatment Upcoming Encounters Date Type Department Care Team (Late st Contact Info) Description 06/11/2024 4:00 PM EDT Home Visit [facility] [address] [place] [address] Destiny Schultz, RN [address] [place] [address] 10/01/2024 1:00 PM [facility] Telemedicine Family Medicine [address] [phone] Kusum Jones CRNP [address] [place] [address] [place] [address] 10/13/2024 11:30 AM EST Telemedicine Urology, [facility] [place] [address] Chandler Pena MD [address] [place] [address] 11/24/2024 1:40 PM EDT Office Visit Dermatology [address] [place] [address] Sheryl Pena PA-C [address] [place] [address] [place] [address] 04/18/2025 1:20 PM EDT Telemedicine Family Medicine [address] [place] [phone] Verónica Benavides MD [address] [place] [address] [place] [address] Health Maintenance Due Date Last Done Comments [...] Additional history exists CKD PHOS USE SMARTSET 88955 05/05/202504/25, 04/30/2024, 04/02/2024, Additional history exists CKD HGB USE SMARTSET 59922 05/26/202505/26, 05/26/2024, 05/07/2024, Additional history exists Pneumococcal [...] Documents on File Type Date Recorded Patient Transmitter Engineer Expl anation Advance Directives and Living Will 08/10/2021 ADVANCE DIRECTIVE / LIVING WILL LIVING WILL Healthcare Agents on File Name Relationship Healthcare Agent Relationshi p Communication Josselyn Judd Adult Child Health Care Power of Attor nathalie Care Teams Product Ambassador Relationship Specialty Start Date End Date Verónica Benavides MD [address] [place] [address] [place] [address] PCP - General Family Medicine 09/16/14 documented as of this encounter
--- OUTSIDE RECORDS SUMMARY | 2024-07-04 18:48 | External Medical Summary | Summary of Care ---
Author Name Unknown Organization [facility] Address [address] [place] [address] Phone [phone] Care Team Providers Care Neonatal Intensive Care Nurse Name Role Phone Verónica Benavides MD Primary Care Provide r Reason for Visit * Reason Onset Date Comments [facility]: Maintenance 2024 Encounter Details Date Type Department Care Team (Late st Contact Info) Description 2024 Telephone [facility], [facility] [address] [phone] Tali Patel RN [address] [place] [address] [facility]: Maintenance Allergies [...] Strip 1 05/30/2023 Active OneTouch Delica Plus [id number] :Type 2 diabetes mellitus with hemoglobin A1c [...] XL)Indications:Non-i schemic cardiomyopathy (HCC),Coronary artery disease involving [place] coronary artery of [place] heart without angina pectoris,HTN, goal below [...] Coronary artery disease invo lving [place] coronary artery of [place] heart without angina pectoris 07/03/2012 Overview: [...] LNP-s, No Pre serve, 2-Dose Series ([employer] (QEEP)) 08/29/2021,10/23/2020,10/02/2020 COVID-19, MRNA-LNP, 23-24, P F, 30 MCG/0.3 mL, 12 YRS AND ABOVE, IM (XMOS-ComirnatKickanotch mobile) 08/04/2023 Covid-19, Mrna, Lnp-s, Pf, B ivalent, [...] Telephone Encounter - Hermann Orona MD - 2024 2:18 PM EDT Chest x-ray unremarkable Urine culture from 06/07 positive for non lactose fermenting Gram-negative bacilli (most likely Pseudomonas) Recent prior urine cultures: 04/21 Proteus mirabilis, pansensitive 04/19 multiple rachid suggesting colonization 03/17 Proteus mirabilis and Enterococcus Pseudomonas UTI unlikely to be susceptible to any oral agents (except Cipro which she can not take)and will require IV antibiotics for definitive treatment. TT to Destiny Bae while in the home. I think she will need ED visit and possible admission for pseudomonas UTI. Hermann Orona MD, [facility], [facility], [employer] ([facility]) [facility] Available on [employer] * Telephone Encounter - Tali Patel RN - 2024 1:29 PM EDT Images from the original note were not included. PC received from Mony at [facility] to assure [facility] received xray results on patient Chart reviewed xray results scanned in today HV completed yesterday for weight gain,SOB,UTI sx.. 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) 06/10/2024 10:45 AM EDT Scheduled Telephone [facility], [facility] [address] [place] [address] Coordinator, [facility] [address] [place] [address] 06/11/2024 7:05 AM EDT Laboratory Lab Mobile Phlebotomy [facility] [address] [place] [address] [facility], [facility] Mobile Home Draw [address] [place] [address] 06/11/2024 4:00 PM EDT [facility] Visit [facility], [facility] [address] [place] [address] Destiny Schultz, RN [address] [place] [address] 10/01/2024 1:00 PM EST Telemedicine Family Medicine [address] [place] [phone] Kusum Jones [address] [place] [address] 10/13/2024 11:30 AM EST Telemedicine Urology, [facility] [address] [place] [address] Chandler Pena MD [address] [place] [phone] 11/24/2024 1:40 PM EDT Office Visit Dermatology [address] [place] [address] Sheryl Pena PA-C [address] [place] [address] [place] [address] 04/18/2025 1:20 PM EDT Telemedicine Family Medicine [address] [place] [phone] Verónica Benavides MD [address] [place] [address] [place] [address] Health Maintenance Due Date Last Done Comments [...] 08/08/2022, 02/24/2023, Additional history exists Albumin/Creatinine Ratio 04/19/202504/19/2 024, 02/07/2023, 01/18/2022, Additional history exists CKD PHOS USE SMARTSET 34127 05/05/202504/25, 04/30/2024, 04/02/2024, Additional history exists CKD HGB USE SMARTSET 25921 05/26/202505/26, 05/26/2024, 05/07/2024, Additional history exists Pneumococcal [...] Documents on File Type Date Recorded 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
--- OUTSIDE RECORDS SUMMARY | 2024-07-04 18:48 | External Medical Summary | Summary of Care ---
Author Name Unknown Organization [facility] Address [address] [place] [address] Phone [phone] Care Team Providers Care Bowling Ball Grader And Marker Name Role Phone Verónica Benavides MD Primary Care Provide r Reason for Visit * Reason Onset Date Comments [facility]: Maintenance 06/10/2024 Encounter Details Date Type Department Care Team (Late st Contact Info) Description 06/10/2024 10:45 AM EDT Scheduled Telephone [facility], [facility] 132 [facility] [place] [address] Coordinator, [facility] 132 [facility] [place] [address] Allergies Active Allergy Reactions Criticality Noted Date Comments Adhesive Tape Medium 01/30/2022 Ibuprofen Hives 01/13/2012 Aspirin Hives,Rash 09/15/2000 Sulfamethoxazole-Trimeth oprim Nausea/vomiting,Othe r (Please comment) 10/27/2020 Dizziness Ciprofloxacin Hcl 06/16/2019 Hoarse, dizzy,disoriented Morphine 09/21/2021 Blacked out Penicillins Hives,Rash 09/15/2000 Prednisone 12/30/2017 Weakness/memory changes/blurred vision documented as of this encounter (statuses as of 06/10/2024) Medications Medication Sig Dispensed Refills Start Date End Date Status Alion EnergyTouch Verio w/Device Kit Use up to 4 [...] Strip 1 05/30/2023 Active OneTouch Delica Plus [id number] :Type 2 diabetes mellitus with hemoglobin A1c [...] mRNA, LNP-s, No Pre serve, 2-Dose Series ([employer]) 08/29/2021,10/23/2020,10/02/2020 COVID-19, MRNA-LNP, 23-24, P F, 30 MCG/0.3 mL, 12 YRS AND ABOVE, IM (LabMinds-ComirnatShopnation) 08/04/2023 Covid-19, Mrna, Lnp-s, Pf, B ivalent, [...] 1:55 PM EDT Spoke to Kenneth at [facility] ([phone]), confirmed patient is currently admitted to hospital, unsure of admitting dx. Routing to care team Routing to [facility] to follow for hospital discharge Angie BRADFORDN, RN [facility] drying supervisor Navigator documented in this encounter Plan of Treatment Upcoming Encounters Date Type Department Care Team (Late st Contact Info) Description 06/11/2024 4:00 PM EDT Home Visit [facility] [address] [place] [address] Destiny Schultz, POPPY [address] [place] [address] 10/01/2024 1:00 PM EST Telemedicine Family Medicine [address] [phone] Kusum Jones [address] [place] [address] 10/13/2024 11:30 AM EST Telemedicine Urology, [facility] [address] [place] [address] Chandler Pena MD [address] [place] [address] 11/24/2024 1:40 PM EDT Office Visit Dermatology [address] [place] [address] Sheryl Pena PA-C [address] [place] [address] [place] [address] 04/18/2025 1:20 PM EDT Telemedicine Family Medicine [address] [phone] Verónica Benavides MD [address] [place] [address] [place] [address] Health Maintenance Due Date Last Done Comments [...] Additional history exists CKD PHOS USE SMARTSET 68907 05/05/202504/25, 04/30/2024, 04/02/2024, Additional history exists CKD HGB USE SMARTSET 54908 05/26/202505/26, 05/26/2024, 05/07/2024, Additional history exists Pneumococcal [...] Documents on File Type Date Recorded Patient Chart Reader Expl anation Advance Directives and Living Will 08/10/2021 ADVANCE DIRECTIVE / LIVING WILL LIVING WILL Healthcare Agents on File Name Relationship Healthcare Agent Relationshi p Communication Josselyn Judd Adult Child Health Care Power of Attor nathalie Care Teams Bowling Ball Grader And Marker Relationship Specialty Start Date End Date Verónica Benavides MD [address] [place] [address] [place] [address] PCP - General Family Medicine 09/16/14 documented as of this encounter
--- OUTSIDE RECORDS SUMMARY | 2024-07-04 18:50 | External Medical Summary ---
Author Name Unknown Address Unknown Organization [id number]:[facility] [place] [address] [facility] [address] Laboratory Report Ordering Provider Test Date Status SATISH GEORGE 06/07/2024 09:20:03 Final <10,000 colonies/ml mixed no rmal rachid Observation Date Value Abnormality Reference (Units ) Status Bacteria identified in Specimen by Culture 06/07/2024 09:20:03 [id number]^ESCHE RICHIA COLI ESBL Abnormal Final >100,000 colonies/mL Escheri dianne coli ESBL producing organism, This patient may require isolation.
This gram negative bacilli displays in vitro resistance to multiple antibiotics. This patient may require isolation. Carbapenem use is preferred. Contact infectious disease service for further recommendations. Bacteria identified in Specimen by Culture 06/07/2024 09:20:03 [id number]^ESCHERICHIA COLI ESBL Abnormal Final >100,000 colonies/mL - Secon d type Escherichia coli ESBL producing organism, This patient may require isolation.
This gram negative bacilli displays in vitro resistance to multiple antibiotics. This patient may require isolation. Carbapenem use is preferred. Contact infectious disease service for further recommendations. Performing Location [facility] [place] [facility] [address] [facility] [address] Ordering Provider Test Date Status SATISH GEORGE 06/07/2024 09:20:03 Final Observation Date Value Abnormality Reference (Units ) Status Ampicillin 06/07/2024 09:20:03 >=32 Resistant Final Ampicillin + Sulbactam 06/07/2024 09:20:03 8 Susceptible Final Cefazolin 06/07/2024 09:20:03 >=64 Resistant Final Cefepime susceptibility 06/07/2024 09:20:03 Susceptible Final This is an appended report. These results have been appended to a previously preliminary verified report. cefOXitin [Susceptibility] 06/07/2024 09:20:03 16 Int ermediate Final Ceftriaxone suceptibility 06/07/2024 09:20:03 >=64 Resi stant Final Ciprofloxacin 06/07/2024 09:20:03 0.5 Intermediate Final Due to serious side effects, the FDA has advised against using Ciprofloxacin to treat uncomplicated UTIs and respiratory tract infections unless there are no alternative treatment options. Gentamicin susceptibility 06/07/2024 09:20:03 <=1 Susc eptible Final Levofloxacin susceptibility 06/07/2024 09:20:03 1 In termediate Final Due to serious side effects, the FDA has advised against using Levofloxacin to treat uncomplicated UTIs and respiratory tract infections unless there are no alternative treatment options. Meropenem [Susceptibility] 06/07/2024 09:20:03 <=0.25 Katie ceptible Final Nitrofurantoin susceptibility 06/07/2024 09:20:03 128 Resistant Final Piperacillin + Tazobactamsusceptibility 06/07/2024 09:20:03 <=4 Susceptible Final TMP-SMZ susceptibility 06/07/2024 09:20:03 <=20 Suscept ible Final Performing Location [facility] [place] [facility] [address] [place] [address] Ordering Provider Test Date Status SATISH GEORGE 06/07/2024 09:20:03 Final Observation Date Value Abnormality Reference (Units ) Status Ertapenem [Susceptibility] 06/07/2024 09:20:03 25 Susceptible Susceptible >21 , Intermediate <=21 , Resistant <=18 Final Performing Location [facility] [place] [address] [place] [address] Ordering Provider Test Date Status SATISH GEORGE 06/07/2024 09:20:03 Final Observation Date Value Abnormality Reference (Units ) Status Ampicillin 06/07/2024 09:20:03 >=32 Resistant Final Ampicillin + Sulbactam 06/07/2024 09:20:03 8 Susceptible Final Cefazolin 06/07/2024 09:20:03 >=64 Resistant Final Cefepime susceptibility 06/07/2024 09:20:03 <=1 Susceptible Final Ceftriaxone suceptibility 06/07/2024 09:20:03 >=64 Resistant Final Ciprofloxacin 06/07/2024 09:20:03 <=0.25 Susceptible Final Due to serious side effects, the FDA has advised against using Ciprofloxacin to treat uncomplicated UTIs and respiratory tract infections unless there are no alternative treatment options. Gentamicin susceptibility 06/07/2024 09:20:03 <=1 Susc eptible Final Meropenem [Susceptibility] 06/07/2024 09:20:03 <=0.25 Katie ceptible Final Nitrofurantoin susceptibility 06/07/2024 09:20:03 256 Resistant Final Piperacillin + Tazobactamsusceptibility 06/07/2024 09:20:03 <=4 Susceptible Final TMP-SMZ susceptibility 06/07/2024 09:20:03 <=20 Suscept ible Final Performing Location [facility] [place] [address] [facility] [address] Ordering Provider Test Date Status SATISH GEORGE 06/07/2024 09:20:03 Final Observation Date Value Abnormality Reference (Units ) Status Ertapenem [Susceptibility] 06/07/2024 09:20:03 29 Susceptible Susceptible >21 , Intermediate <=21 , Resistant <=18 Final Test: Culture, Urine, Quanti tative
Specimen Source: Urine, Clean Catch
Specimen Type: Urine
Specimen Date: [id number]
Result Date: 06/12/2024 1329
Result Status: Final result
Abnormal: Yes
Resulting Lab: [facility]
[address]
[facility] [address]

CULTURE

>100,000 colonies/mL Escherichia coli ESBL producing organism, This patient may
require isolation. (Abnormal)

This gram negative bacilli displays in vitro resistance to multiple
antibiotics. This patient may require isolation. Carbapenem use is
preferred. Contact infectious disease service for further recommendations.

>100,000 colonies/mL - Second type Escherichia coli ESBL producing organism,
This patient may require isolation. (Abnormal)

This gram negative bacilli displays in vitro resistance to multiple
antibiotics. This patient may require isolation. Carbapenem use is
preferred. Contact infectious disease service for further recommendations.

<10,000 colonies/ml mixed normal rachid

SUSCEPTIBILITY

Escherichia coli ESBL producing
organism, This patient may require
isolation. (1)
METHOD MORALES CASTILLO

AMPICILLIN
AMPICILLIN/SULBACTAM
CEFAZOLIN
CEFEPIME
CEFOXITIN
CEFTRIAXONE
CIPROFLOXACIN
ERTAPENEM 25 Susceptible
GENTAMICIN
LEVOFLOXACIN
MEROPENEM
NITROFURANTOIN
PIPERACILLIN TAZOBACTAM
TRIMETH/SULFAMETHOXAZOLE

Escherichia coli ESBL producing
organism, This patient may require
isolation. (1)
METHOD MICROBROTH DILUTIONS

AMPICILLIN >=32 Resistant
AMPICILLIN/SULBACTAM 8 Susceptible
CEFAZOLIN >=64 Resistant
CEFEPIME -- Susceptible - Dose Dependent
[1]
CEFOXITIN 16 Intermediate
CEFTRIAXONE >=64 Resistant
CIPROFLOXACIN 0.5 Intermediate [2]
ERTAPENEM
GENTAMICIN <=1 Susceptible
LEVOFLOXACIN 1 Intermediate [3]
MEROPENEM <=0.25 Susceptible
NITROFURANTOIN 128 Resistant
PIPERACILLIN TAZOBACTAM <=4 Susceptible
TRIMETH/SULFAMETHOXAZOLE <=20 Susceptible

Escherichia coli ESBL producing
organism, This patient may require
isolation. (2)
METHOD MORALES CASTILLO

AMPICILLIN
AMPICILLIN/SULBACTAM
CEFAZOLIN
CEFEPIME
CEFOXITIN
CEFTRIAXONE
CIPROFLOXACIN
ERTAPENEM 29 Susceptible
GENTAMICIN
LEVOFLOXACIN
MEROPENEM
NITROFURANTOIN
PIPERACILLIN TAZOBACTAM
TRIMETH/SULFAMETHOXAZOLE

Escherichia coli ESBL producing
organism, This patient may require
isolation. (2)
METHOD MICROBROTH DILUTIONS

AMPICILLIN >=32 Resistant
AMPICILLIN/SULBACTAM 8 Susceptible
CEFAZOLIN >=64 Resistant
CEFEPIME <=1 Susceptible
CEFOXITIN
CEFTRIAXONE >=64 Resistant
CIPROFLOXACIN <=0.25 Susceptible [4]
ERTAPENEM
GENTAMICIN <=1 Susceptible
LEVOFLOXACIN
MEROPENEM <=0.25 Susceptible
NITROFURANTOIN 256 Resistant
PIPERACILLIN TAZOBACTAM <=4 Susceptible
TRIMETH/SULFAMETHOXAZOLE <=20 Susceptible

[1] This is an appended report. These results have been appended to a
previously preliminary verified report.

[2] Due to serious side effects, the FDA has advised against using
Ciprofloxacin to treat uncomplicated UTIs and respiratory tract infections
unless there are no alternative treatment options.

[3] Due to serious side effects, the FDA has advised against using
Ciprofloxacin to treat uncomplicated UTIs and respiratory tract infections
unless there are no alternative treatment options.

[4] Due to serious side effects, the FDA has advised against using
Levofloxacin to treat uncomplicated UTIs and respiratory tract infections
unless there are no alternative treatment options.

null Performing Location [facility] [place] [address] [facility] [address]
--- NOTE | 2024-07-04 19:24 | Emergency Department Note ---
Impression & Plan Generalized weakness, Elevated lactic acid level, Non-ST elevation SD (NSTEMI), Complicated urinary tract infection ED Provider Note HISTORY OF PRESENT ILLNESS: Patient is an 89-year-old female presenting with generalized weakness. Daughter helps provide history. Reports that for the last 5 days the patient has had progressively worsening weakness. She normally gets around with a wheeled walker at home but has been significantly more short of breath over the last few days and complaining of bilateral lower leg weakness. Reports the patient has not gained any significant weight. No reported fevers. They were concerned that the patient has a urinary tract infection, as they report her urine is foul-smelling and cloudy. She does have a history of ESBL in urine. She has not been on any antibiotics since her recent admission for ESBL UTI. No chest pain complaints. Patient denies any abdominal pain, nausea or vomiting. She reports she just feels weak. Denies any recent falls or head injury. ROS: as above PHYSICAL EXAM: Constitutional: Patient appears in no acute distress. HENT: Head: Normocephalic and atraumatic. Eyes: EOMI, PERRL Mouth/Throat: Mucous membranes moist. Neck: Trachea midline. Neck supple. Cardiovascular: Paced rhythm. No murmurs, rubs or gallops. Intact distal pulses. Pulmonary/Chest: No respiratory distress. Breath sounds clear and equal bilaterally. No wheezes or rales. Abdominal: Abdomen soft, no tenderness, rebound or guarding. Musculoskeletal: No edema, tenderness or deformity noted. Skin: Warm and dry. No rash, erythema, pallor or cyanosis Psychiatric: Appropriate mood and affect for situation. Neurological: Alert and keenly responsive. CN II-XII grossly intact, moving all extremities equally and fully. MDM: - Vitals signs showed hypertension. - History obtained via patient. History as above. - Chronic conditions affecting care: hypothyroidism; non-ischemic cardiomyopathy; LBBB; HTN; CHF; severe aortic stenosis - Differential diagnoses include, but are not limited to: UTI; pneumonia; viral syndrome; CHF exacerbation; electrolyte abnormality; bacteremia; CVA - Order placed for continuous cardiac monitoring. At this time, monitor showed rate of 66 bpm with paced rhythm, per my interpretation. - External medical records reviewed. Discharge summary dated 06/15/2024 was reviewed. Patient was admitted that time for acute CHF exacerbation and complicated UTI. - EKG interpreted by myself showed atrial paced rhythm. Rate 73 bpm. - Laboratory workup interpreted by myself showed normal WBC; chronic anemia (Hgb 10.5 - improved from 9.0 last month); elevated lactate (2.3); normal electrolytes; hyperglycemia (glucose 179); normal procalcitonin; elevated troponin (16.2); elevated BNP (333) - CXR negative for pneumonia, per my interpretation - Patient grew ESBL on urine culture dated 06/09/2024. IV ertapenem ordered. - Discussion was had with spring encaser about patient's case and need for admission - Hospitalist, Dr. Medina, consulted for admission - [facility] ASSESSMENT AND PLAN: Diagnosis: generalized weakness; elevated lactic acid level; NSTEMI; complicated UTI Plan: admit Past Med/Surg History Problem List (Updated 07/04/24 @ 20:31 by Jasmine Masters MD) Complicated urinary tract infection (Acute) Non-ST elevation SD (NSTEMI) (Acute) Elevated lactic acid level (Acute) Generalized weakness (Acute) Physical deconditioning Asymptomatic bacteriuria Acute systolic heart failure due to valvular disease Acute on chronic systolic congestive heart failure UTI (urinary tract infection) (Acute) Anemia (Acute) CHF (congestive heart failure) (Acute) Shortness of breath (Acute) Nocturnal hypoxia Recurrent UTI Complicated UTI (urinary tract infection) Acute on chronic combined systolic and diastolic heart failure Knee contusion Urinary tract infection due to Proteus Hip pain, acute Ambulatory dysfunction (Acute) Acute knee pain (Acute) STEVE (acute kidney injury) Chronic combined systolic (congestive) and diastolic (congestive) heart failure CHF (congestive heart failure) (Acute) Generalized weakness (Acute) UTI due to extended-spectrum beta lactamase (ESBL) producing Escherichia coli (Acute) UTI due to extended-spectrum beta lactamase (ESBL) producing Escherichia coli Chronic heart failure with preserved ejection fraction Acute on chronic heart failure with preserved ejection fraction (HFpEF) Severe aortic stenosis CHF (congestive heart failure) Cough (Acute) Acute foot pain (Acute) Fall (Acute) HTN (hypertension) Right calcaneal fracture COVID-19 (Acute) DVT prophylaxis UTI due to Klebsiella species Diabetes mellitus, type II (Chronic) Aortic stenosis, moderate (Chronic) Pacemaker (Chronic) Lymphedema (Chronic) Dyspnea on exertion (Acute) History of recurrent UTIs (Chronic) Arthritis (Chronic) LBBB (left bundle branch block) (Chronic) Vertigo (Chronic) Systolic heart failure (Chronic) Hypothyroidism (Chronic) History of knee replacement, total (Chronic) NICM (nonischemic cardiomyopathy) (Chronic) Medical History Dizziness Lactic acidemia Acute UTI Hypoxia Pneumonia Surgical History History of hysterectomy Hx of cholecystectomy Family History Other Diabetes Heart disease Hypertension Social History Smoking Status: Never smoker Second Hand Exposure: No; Do You Dip or Chew Tobacco: No; Hx Alcohol Use: No Hx Substance Use: No Preferred Language: Portuguese Communication Ability: Effective Portrait Painter Required: No Beliefs That Will Affect Care: None marital status: / Current Living Situation: Family Current Living Situation Comment: caregivers current occupational status: retired How many Children do You have: 1 Feels Safe at Home: Yes Assistive Devices: Glasses, Oxygen - at Night and Walker Allergies Allergies Allergy/AdvReac Type Severity Reaction Status Date / Time aspirin Allergy Intermediate Hives, Verified 04/24/24 15:39 shortness of breath ibuprofen Allergy Intermediate Rash, hives Verified 04/24/24 15:39 Penicillins Allergy Intermediate Rash, hives Verified 04/24/24 15:39 adhesive Allergy Mild Reddened Verified 04/24/24 15:39 and sore skin morphine AdvReac Severe BLACKED OUT Verified 04/24/24 15:39 ciprofloxacin AdvReac Intermediate DIZZINESS/H Verified 04/24/24 15:39 OARSE/DISOR IENTED sulfamethoxazole AdvReac Intermediate NAUSEA/VOMI Verified 04/24/24 15:39 [From Bactrim] TING/DIZZIN ESS trimethoprim [From Bactrim] AdvReac Intermediate NAUSEA/VOMI Verified 04/24/24 15:39 TING/DIZZIN ESS prednisone AdvReac Mild CONFUSION/BLURRED Verified 04/24/24 15:39 VISION/WEAKNESS Home Meds Home Medications Medication Instructions Recorded Confirmed d-mannose 500 mg capsule 1,000 mg PO AMPM 10/22/22 06/09/24 mirabegron 25 mg tablet,extended 25 mg PO QAM 10/22/22 06/09/24 release 24 hr (Myrbetriq) omeprazole 20 mg capsule,delayed 20 mg PO DAILYBB 10/22/22 06/09/24 release spironolactone 25 mg tablet 12.5 mg PO QAM 10/22/22 06/09/24 (Aldactone) bisacodyl 5 mg tablet,delayed 10 mg PO DAILY PRN Constipation 03/21/23 06/09/24 release (Dulcolax (bisacodyl)) cholecalciferol (vitamin D3) 25 1,000 unit PO QAM 03/21/23 06/09/24 mcg (1,000 unit) capsule colchicine 0.6 mg tablet 0.6 mg PO BID PRN gout attacks 03/21/23 06/09/24 cyanocobalamin (vitamin B-12) 1,000 mcg PO QAM 03/21/23 06/09/24 1,000 mcg tablet (Vitamin B-12) dulaglutide 0.75 mg/0.5 mL 0.75 mg subcut WK 03/21/23 06/09/24 subcutaneous pen injector (Trulicity) glucosamine-chondroitin 500 mg-400 1 tab PO AMPM 03/21/23 06/09/24 mg tablet levothyroxine 88 mcg tablet 88 mcg PO DAILYBB 03/21/23 06/09/24 magnesium oxide 400 mg (241.3 mg 400 mg PO DAILY 03/21/23 06/09/24 magnesium) tablet meclizine 25 mg tablet 25 mg PO TID PRN Dizziness 03/21/23 06/09/24 potassium chloride 20 mEq 20 meq PO AMHS 03/21/23 06/09/24 tablet,extended release(part/cryst) promethazine-DM 6.25 mg-15 mg/5 mL 5 ml PO QID PRN persistant cough 03/21/23 06/09/24 oral syrup benzonatate 100 mg capsule 100 mg PO TID PRN Cough 12/09/23 06/09/24 conjugated estrogens 0.625 mg/gram 1 applic vaginal HS 12/09/23 06/09/24 vaginal cream (Premarin) docusate sodium 100 mg capsule 300 mg PO BID 12/09/23 06/09/24 metolazone 2.5 mg tablet 2.5 mg PO DAILY PRN FLUID 12/09/23 06/09/24 RETENTION/LAST RESORT ondansetron HCl 4 mg tablet 4 mg PO Q6H PRN NAUSEA/VOMITING 12/09/23 06/09/24 diclofenac sodium 1 % topical gel 2 g topical TID KNEE PAIN 04/24/24 06/09/24 nitrofurantoin 100 mg PO HS 04/24/24 06/09/24 monohydrate/macrocrystals 100 mg capsule nystatin 100,000 unit/gram topical 1 applic topical BID PRN UNDER 04/24/24 06/09/24 powder BREASTS/ABD FOLDS NEEDED phenazopyridine 100 mg tablet 100 mg PO TID PRN BLADDER PAIN 04/24/24 06/09/24 Previous Rx's Medication Instructions Recorded metoprolol succinate 25 mg 25 mg PO QPM #30 tabs 12/17/23 tablet,extended release 24 hr torsemide 20 mg tablet 80 mg (4 x 20 mg) PO BID17 30 days 06/15/24 #120 tabs Results & Data (ED) Vital Signs Vital Signs - 24 hr 07/04/24 18:40 07/04/24 19:22 Temperature 36.2 C L Temperature Source Temporal Artery Scan Pulse Rate 78 66 Respiratory Rate 19 Respiratory Effort / Characteristics Non-Labored Spontaneous Respiratory Depth Normal Blood Pressure 146/104 H Blood Pressure Mean 118 Pulse Oximetry 94 Oxygen Delivery Method Room Air Sepsis Recent Fever Within 48 Hours No Sepsis New/Unexplained Change in Mental Status N/A Sepsis Action Taken by Nursing No Action Required Laboratory Data 07/04/24 19:15 07/04/24 19:15 Lab Results 07/04/24 07/04/24 07/04/24 Range/Units 19:15 19:40 19:58 WBC 7.62 (4.8-10.8) K/ul RBC 2.68 L (4.20-5.40) M/uL Hgb 10.5 L (12.0-16.0) g/dl Hct 30.3 L (37.0-47.0) % MCV 113.1 H (80.0-100.0) fL MCH 39.2 H (25.0-34.0) pg MCHC 34.7 (32.0-36.0) g/dL RDW Std Deviation 57.2 H (36.4-46.3) fL RDW Coeff of Jon 13.8 (11.5-14.5) % Plt Count 379 (130-400) K/uL MPV 10.0 (9.4-12.4) fL Immature Gran % (Auto) 0.3 % Neut % (Auto) 48.1 % Lymph % (Auto) 39.8 % Towns % (Auto) 9.7 % Eos % (Auto) 1.4 % Baso % (Auto) 0.7 % Neut # (Auto) 3.67 (1.40-6.50) K/uL Lymph # (Auto) 3.03 (1.20-3.40) K/uL Towns # (Auto) 0.74 H (0.11-0.59) K/uL Eos # (Auto) 0.11 (0.00-0.50) K/uL Baso # (Auto) 0.05 (0.00-0.20) K/uL Immature Gran # (Auto) 0.02 (0.01-0.20) K/uL Absolute Nucleated RBC 0.03 (0.00-0.12) K/uL Nucleated RBC % (auto) 0.4 % Macrocytosis Present Sodium 137 (136-145) mmol/L Potassium 4.1 (3.5-5.1) mmol/L Chloride 99 (98-107) mmol/L Carbon Dioxide 29 (21-32) mmol/L Anion Gap 9 (3-11) BUN 22 (6-23) mg/dl Creatinine 0.94 (0.6-1.2) mg/dl Est Cr Clr Drug Dosing 47.9 ml/min eGFR 58.00 BUN/Creatinine Ratio 23.4 H (10-20) Glucose 179 H (70-99(Fasting)) mg/dl Lactate 2.3 H* (0.4-2.0) mmol/L Calcium 9.9 (8.6-10.3) mg/dl Total Bilirubin 0.4 (0.2-1.0) mg/dl AST 17 (13-39) U/L ALT 7 (7-52) U/L Alkaline Phosphatase 86 (34-104) U/L Troponin I High Sens 16.2 H (0-14) pg/ml B-Natriuretic Peptide 333 H (0-100) pg/ml Total Protein 7.3 (6.0-8.3) gm/dl Albumin 4.0 (3.4-5.0) gm/dl Globulin 3.3 (2.5-4.0) gm/dl Albumin/Globulin Ratio 1.2 (0.9-2) Procalcitonin < 0.02 (0-0.5) ng/ml Urine Color Yellow Urine Appearance Cloudy A (Clear) Urine pH 6.0 (4.5-7.5) Ur Specific Mcdonough 1.008 (1.000-1.030) Urine Protein Negative (Negative) Urine Glucose (UA) Negative (Negative) Urine Ketones Negative (Negative) Urine Blood Negative (Negative) Urine Nitrite Negative (Negative) Urine Bilirubin Negative (Negative) Urine Urobilinogen Negative (Negative) Ur Leukocyte Esterase 3+ H (Negative) Urine WBC (Auto) >50 H (0-5) /hpf Urine RBC (Auto) 0-2 (0-2) /hpf U Hyaline Cast (Auto) 0-2 (0-2) /lpf U Epithel Cells (Auto) 0-2 (0-2) /hpf Urine Bacteria (Auto) 4+ H (None Seen) Discharge Plan Visit Data Chief Complaint: Urinary Symptoms Stated Complaint: SOB, TIRED, WEAK LEGS, URINE IS CLOUDY, UTI ED Provider: Jasmine Masters Discharge Problem: Generalized weakness, Elevated lactic acid level, Non-ST elevation SD (NSTEMI), Complicated urinary tract infection Forms Stand Alone Forms: My [facility] Prescriptions Prescriptions: No Action omeprazole 20 mg capsule,delayed release(DR/EC) 20 mg PO DAILYBB mirabegron [Myrbetriq] 25 mg tablet extended release 24 hr 25 mg PO QAM d-mannose 500 mg Capsule 1,000 mg PO AMPM spironolactone [Aldactone] 25 mg tablet 12.5 mg PO QAM levothyroxine 88 mcg tablet 88 mcg PO DAILYBB magnesium oxide 400 mg (241.3 mg magnesium) tablet 400 mg PO DAILY cholecalciferol (vitamin D3) 25 mcg (1,000 unit) capsule 1,000 unit PO QAM glucosamine-chondroitin 500-400 mg Tablet 1 tab PO AMPM potassium chloride 20 mEq tablet,ER particles/crystals 20 meq PO AMHS cyanocobalamin (vitamin B-12) [Vitamin B-12] 1,000 mcg Tablet 1,000 mcg PO QAM Trulicity 0.75 mg/0.5 mL pen injector 0.75 mg SUBCUT WK Rx Instructions: wednesdays promethazine-DM 6.25-15 mg/5 mL syrup 5 ml PO QID PRN (Reason: persistant cough) meclizine 25 mg tablet 25 mg PO TID PRN (Reason: Dizziness) colchicine 0.6 mg tablet 0.6 mg PO BID PRN (Reason: gout attacks) bisacodyl [Dulcolax (bisacodyl)] 5 mg Tablet,Delayed Release (Dr/Ec) 10 mg PO DAILY PRN (Reason: Constipation) metolazone 2.5 mg Tablet 2.5 mg PO DAILY PRN (Reason: FLUID RETENTION/LAST RESORT) ondansetron HCl 4 mg tablet 4 mg PO Q6H PRN (Reason: NAUSEA/VOMITING) benzonatate 100 mg Capsule 100 mg PO TID PRN (Reason: Cough) Premarin 0.625 mg/gram cream 1 applic vaginal HS Rx Instructions: APPLY PEA-SIZE AMT TO VULUAR AT HS FOR IRRITATION docusate sodium 100 mg Capsule 300 mg PO BID metoprolol succinate 25 mg Tablet Extended Release 24 Hr 25 mg PO QPM Qty: 30 0RF torsemide 20 mg tablet 80 mg PO BID17 30 Days Qty: 120 0RF phenazopyridine 100 mg tablet 100 mg PO TID PRN (Reason: BLADDER PAIN) Rx Instructions: PER GELUER, PER EXT MED HX--200 MG TID IF NEEDED. nystatin 100,000 unit/gram Powder 1 applic TOPICAL BID PRN (Reason: UNDER BREASTS/ABD FOLDS NEEDED) nitrofurantoin monohyd/m-cryst 100 mg capsule 100 mg PO HS Hold Instructions: Resume on 05/02/24. resume once cefdinir course is completed. diclofenac sodium 1 % Gel 2 g TOPICAL TID Referrals Referrals: Verónica Benavides MD [Primary Care Provider] -
[2024-07-04 19:39] LABS: Basophils # (auto) 0.05 K/uL (0.00-0.20); Basophils % (auto) 0.7 %; Eosinophils # (auto) 0.11 K/uL (0.00-0.50); Eosinophils % (auto) 1.4 %; Hematocrit (blood only) 30.3 % (37.0-47.0); Hemoglobin 10.5 g/dl (12.0-16.0); Immature Granulocytes # (auto) 0.02 K/uL (0.01-0.20); Immature Granulocytes % (auto) 0.3 %; Lymphocytes # (auto) 3.03 K/uL (1.20-3.40); Lymphocytes % (auto) 39.8 %; Mean Corpuscular Hemoglobin 39.2 pg (25.0-34.0); Mean Corpuscular Hgb Conc 34.7 g/dL (32.0-36.0); Mean Corpuscular Volume 113.1 fL (80.0-100.0); Monocytes # (auto) 0.74 K/uL (0.11-0.59); Monocytes % (auto) 9.7 %; Neutrophils # (auto) 3.67 K/uL (1.40-6.50); Neutrophils % (auto) 48.1 %; Nucleated RBC # (auto) 0.03 K/uL (0.00-0.12); Nucleated RBC % (auto) 0.4 %; Platelet Count 379 K/uL (130-400); RDW Coefficient of Variation 13.8 % (11.5-14.5); RDW Standard Deviation 57.2 fL (36.4-46.3); Red Blood Count 2.68 M/uL (4.20-5.40); White Blood Count 7.62 K/ul (4.8-10.8)
[2024-07-04 19:51] LABS: Albumin Globulin Ratio 1.2 (0.9-2); BUN Creatinine Ratio 23.4 (10-20); Bilirubin,Total 0.4 mg/dl (0.2-1.0); Calcium 9.9 mg/dl (8.6-10.3); Creatinine Clr Calc Pharmacy 47.9 ml/min; Globulin 3.3 gm/dl (2.5-4.0); Potassium 4.1 mmol/L (3.5-5.1); Total Protein 7.3 gm/dl (6.0-8.3)
[2024-07-04 19:57] LABS: Troponin I High Sensitivity 16.2 pg/ml (0-14)
[2024-07-04 19:58] LABS: Macrocytosis Present
[2024-07-04 20:13] LABS: Appearance Urine Cloudy (Clear); Bacteria Urine Automated 4+ (None Seen); Bilirubin Urine Negative (Negative); Blood Urine Negative (Negative); Cast Urine Automated 0-2 /lpf (0-2); Color Urine Yellow; Epithelial Cell Urine Auto 0-2 /hpf (0-2); Glucose Urine UA Negative (Negative); Ketones Urine Negative (Negative); Leukocyte Esterase Urine 3+ (Negative); Nitrite Urine Negative (Negative); Protein Urine Negative (Negative); RBC Urine Automated 0-2 /hpf (0-2); Specific Gravity Urine 1.008 (1.000-1.030); Urobilinogen Urine Negative (Negative); WBC Urine Automated >50 /hpf (0-5)
[2024-07-04] MEDS: ERTAPENEM 1000MG 1,000 MG/10 ML SYR IV STA (20:54)
[2024-07-04] MEDS: ALBUMIN 25% 25 GM/100 ML VIAL IV ONE (21:03)
[2024-07-04 21:09] LABS: Magnesium 1.7 mg/dl (1.7-2.4)
--- NOTE | 2024-07-04 21:20 | XRay Report ---
Exam(s): XR CXR 1 VIEW EXAM: XR Chest, 1 View CLINICAL HISTORY: shortness of breath. TECHNIQUE: Frontal view of the chest. COMPARISON: Portable chest single view dated 06/09/2024 FINDINGS: Lungs: Shallow inspiration. No focal airspace consolidation. The interstitial markings are stable. The pulmonary vasculature demonstrates no radiographic evidence for florid CHF. Pleural space: Unremarkable. No pneumothorax. No large pleural effusion. Heart: The cardiac silhouette is predominantly obscured by the hemidiaphragm with projection technique. The heart is presumed stable. Mediastinum: No significant abnormality identified. The trachea is midline. Bones/joints: The nasal contours are stable, accounting for obliquity and accentuated kyphosis. No tracheal deviation. No acute fracture. Tubes, lines and devices: Left subclavian approach pacer leads, stable. IMPRESSION: No definite focal consolidation or acute cardiopulmonary process identified, accounting for limitations with projection technique. Electronically signed by: Stefan Puente MD 07/04/24 21:19 PM
--- NOTE | 2024-07-04 23:51 | History & Physical Report ---
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 hypertension, stable DM2 on oral medications, well-controlled as of recent hemoglobin A1c of 6.30 November 2023 hypothyroidism, euthyroid as of today's TSH chronic anemia, hemoglobin at baseline chronic lymphedema Medical telemetry given troponin elevation Urine CS, Ertapenem given ESBL organism history Palliative care consult to discuss goals of care if patient/family amenable given frequent readmissions/deconditioning. ISS BG goal 1 10-1 40, carb count coverage DVT prophylaxis. Lovenox subcu DNR as per patient's prior directives. Patient daughter requesting updates providers. Ms. Josselyn Judd, contact #[phone]. Text document was generated using [employer]ing[employer]ot voice recognition software. It may contain grammatical or spelling errors. Kindly contact undersigned for clarification of any documentation item in question. History of Present Illness Chief Complaint: UTI Primary Care Provider: Verónica Benavides MD History obtained from patient, family, and records. Medical history significant for chronic systolic heart failure (EF 45 to 50%, TTE 2023) status post biventricular pacemaker, valvular heart disease (severe , mild MR/AR), hypertension, DM2 on oral medications, hypothyroidism, GERD, chronic anemia (baseline hemoglobin 9-10), recurrent UTIs on chronic methenamine suppression Rx, history ESBL, urolithiasis, chronic lymphedema. Monthly admissions since April,. Recent confinement last month for decompensated heart failure and asymptomatic bacteriuria. SNF rehab recommended but denied due to insurance. Patient went home with support services. Patient urine noted to be cloudy over the last few days. Foul odor noted. Patient noted to be increasingly weak and slightly confused than usual. Denies abdominal or flank pain. Usual SOB and fluid retention symptoms. Patient denies chest pain. IV or Ertapenem administered at the ER. 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 Allergies Allergy/AdvReac Type Severity Reaction Status Date / Time aspirin Allergy Intermediate Hives, Verified 07/04/24 21:25 shortness of breath ibuprofen Allergy Intermediate Rash, hives Verified 07/04/24 21:25 Penicillins Allergy Intermediate Rash, hives Verified 07/04/24 21:25 adhesive Allergy Mild Reddened Verified 07/04/24 21:25 and sore skin morphine AdvReac Severe BLACKED OUT Verified 07/04/24 21:25 ciprofloxacin AdvReac Intermediate DIZZINESS/H Verified 07/04/24 21:25 OARSE/DISOR IENTED sulfamethoxazole AdvReac Intermediate NAUSEA/VOMI Verified 07/04/24 21:25 [From Bactrim] TING/DIZZIN ESS trimethoprim [From Bactrim] AdvReac Intermediate NAUSEA/VOMI Verified 07/04/24 21:25 TING/DIZZIN ESS prednisone AdvReac Mild CONFUSION/BLURRED Verified 07/04/24 21:25 VISION/WEAKNESS Home Medications Medication Instructions Recorded Confirmed Type d-mannose 500 mg capsule 1,000 mg PO AMPM 10/22/22 07/04/24 History mirabegron 25 mg tablet,extended 25 mg PO QAM 10/22/22 07/04/24 History release 24 hr (Myrbetriq) omeprazole 20 mg capsule,delayed 20 mg PO DAILYBB 10/22/22 07/04/24 History release spironolactone 25 mg tablet 12.5 mg PO QAM 10/22/22 07/04/24 History (Aldactone) bisacodyl 5 mg tablet,delayed 10 mg PO DAILY PRN Constipation 03/21/23 07/04/24 History release (Dulcolax (bisacodyl)) cholecalciferol (vitamin D3) 25 1,000 unit PO QAM 03/21/23 07/04/24 History mcg (1,000 unit) capsule colchicine 0.6 mg tablet 0.6 mg PO BID PRN gout attacks 03/21/23 07/04/24 History cyanocobalamin (vitamin B-12) 1,000 mcg PO QAM 03/21/23 07/04/24 History 1,000 mcg tablet (Vitamin B-12) dulaglutide 0.75 mg/0.5 mL 0.75 mg subcut WK 03/21/23 07/04/24 History subcutaneous pen injector (Trulicity) glucosamine-chondroitin 500 mg-400 1 tab PO AMPM 03/21/23 07/04/24 History mg tablet levothyroxine 88 mcg tablet 88 mcg PO DAILYBB 03/21/23 07/04/24 History magnesium oxide 400 mg (241.3 mg 400 mg PO DAILY 03/21/23 07/04/24 History magnesium) tablet meclizine 25 mg tablet 25 mg PO TID PRN Dizziness 03/21/23 07/04/24 History potassium chloride 20 mEq 20 meq PO BID 03/21/23 07/04/24 History tablet,extended release(part/cryst) promethazine-DM 6.25 mg-15 mg/5 mL 5 ml PO QID PRN persistant cough 03/21/23 07/04/24 History oral syrup benzonatate 100 mg capsule 100 mg PO TID PRN Cough 12/09/23 07/04/24 History conjugated estrogens 0.625 mg/gram 1 applic vaginal HS 12/09/23 07/04/24 History vaginal cream (Premarin) docusate sodium 100 mg capsule 300 mg PO BID 12/09/23 07/04/24 History metolazone 2.5 mg tablet 2.5 mg PO DAILY PRN FLUID 12/09/23 07/04/24 History RETENTION/LAST RESORT ondansetron HCl 4 mg tablet 4 mg PO Q6H PRN NAUSEA/VOMITING 12/09/23 07/04/24 History metoprolol succinate 25 mg 25 mg PO QPM #30 tabs 12/17/23 07/04/24 Rx tablet,extended release 24 hr diclofenac sodium 1 % topical gel 2 g topical TID KNEE PAIN 04/24/24 07/04/24 History nitrofurantoin 100 mg PO HS 04/24/24 07/04/24 History monohydrate/macrocrystals 100 mg capsule phenazopyridine 100 mg tablet 100 mg PO TID PRN BLADDER PAIN 04/24/24 07/04/24 History torsemide 20 mg tablet 80 mg PO BID 07/04/24 07/04/24 History Past Med/Surg History Problem List (Updated 11/10/24 @ 20:31 by Jasmine Masters MD) Complicated urinary tract infection (Acute) Non-ST elevation MT (NSTEMI) (Acute) Elevated lactic acid level (Acute) Generalized weakness (Acute) Physical deconditioning Asymptomatic bacteriuria Acute systolic heart failure due to valvular disease Acute on chronic systolic congestive heart failure UTI (urinary tract infection) (Acute) Anemia (Acute) CHF (congestive heart failure) (Acute) Shortness of breath (Acute) Nocturnal hypoxia Recurrent UTI Complicated UTI (urinary tract infection) Acute on chronic combined systolic and diastolic heart failure Knee contusion Urinary tract infection due to Proteus Hip pain, acute Ambulatory dysfunction (Acute) Acute knee pain (Acute) STEVE (acute kidney injury) Chronic combined systolic (congestive) and diastolic (congestive) heart failure CHF (congestive heart failure) (Acute) Generalized weakness (Acute) UTI due to extended-spectrum beta lactamase (ESBL) producing Escherichia coli (Acute) UTI due to extended-spectrum beta lactamase (ESBL) producing Escherichia coli Chronic heart failure with preserved ejection fraction Acute on chronic heart failure with preserved ejection fraction (HFpEF) Severe aortic stenosis CHF (congestive heart failure) Cough (Acute) Acute foot pain (Acute) Fall (Acute) HTN (hypertension) Right calcaneal fracture COVID-19 (Acute) DVT prophylaxis UTI due to Klebsiella species Diabetes mellitus, type II (Chronic) Aortic stenosis, moderate (Chronic) Pacemaker (Chronic) Lymphedema (Chronic) Dyspnea on exertion (Acute) History of recurrent UTIs (Chronic) Arthritis (Chronic) LBBB (left bundle branch block) (Chronic) Vertigo (Chronic) Systolic heart failure (Chronic) Hypothyroidism (Chronic) History of knee replacement, total (Chronic) NICM (nonischemic cardiomyopathy) (Chronic) Medical History Dizziness Lactic acidemia Acute UTI Hypoxia Pneumonia Surgical History History of hysterectomy Hx of cholecystectomy Family History Other Diabetes Heart disease Hypertension Social History Smoking Status: Never smoker Second Hand Exposure: No; Do You Dip or Chew Tobacco: No; Tobacco Cessation Education Requested by Patient: No Hx Alcohol Use: No Hx Substance Use: No Preferred Language: Lithuanian Communication Ability: Effective 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 Beliefs That Will Affect Care: None marital status: / Current Living Situation: Alone Current Living Situation Comment: caregivers current occupational status: retired How many Children do You have: 1 Other Information That Helps Us Care for You: No Feels Safe at Home: Yes Safety Concerns: Feels Safe At This Time Assistive Devices: Denture - Upper, Denture - Lower, Glasses, Oxygen - at Night, Walker and Wheelchair Review of Systems Review of Systems: As per HPI, all other systems reviewed and negative Physical Exam Physical Exam: GENERAL: Comfortable, morbidly obese, no respiratory distress SKIN: Pallor, warm HEENT: Pale palpebral conjunctivae, no ptosis, dry buccal mucosa NECK : Supple, short neck, no tenderness CHEST : Decreased breath sounds, no tenderness HEART : RRR, systolic murmur ABDOMEN: Some distention, nontender EXTREMITIES : Black stockings over bilateral LE swelling without tenderness, no other conspicuous deformities noted NEUROLOGIC : Coherent, no facial asymmetry, gait and stance not assessed Results & Data Results & Data Vital Signs (Past 12 Hours) Vital Signs Temp Pulse Pulse Resp BP BP Pulse Ox 07/04/24 23:13 62 07/04/24 22:01 61 16 114/53 L 96 07/04/24 19:22 66 07/04/24 18:40 36.2 C L 78 19 146/104 H 94 O2 Del Method 07/04/24 23:13 07/04/24 22:01 07/04/24 19:22 07/04/24 18:40 Room Air Laboratory Results Laboratory Results WBC 7.62 K/ul (4.8-10.8) 07/04/24 19:15 RBC 2.68 M/uL (4.20-5.40) L 07/04/24 19:15 Hgb 10.5 g/dl (12.0-16.0) L 07/04/24 19:15 Hct 30.3 % (37.0-47.0) L 07/04/24 19:15 MCV 113.1 fL (80.0-100.0) H 07/04/24 19:15 MCH 39.2 pg (25.0-34.0) H 07/04/24 19:15 MCHC 34.7 g/dL (32.0-36.0) 07/04/24 19:15 RDW Std Deviation 57.2 fL (36.4-46.3) H 07/04/24 19:15 RDW Coeff of Jon 13.8 % (11.5-14.5) 07/04/24 19:15 Plt Count 379 K/uL (130-400) 07/04/24 19:15 MPV 10.0 fL (9.4-12.4) 07/04/24 19:15 Immature Gran % (Auto) 0.3 % 07/04/24 19:15 Neut % (Auto) 48.1 % 07/04/24 19:15 Lymph % (Auto) 39.8 % 07/04/24 19:15 [place] % (Auto) 9.7 % 07/04/24 19:15 Eos % (Auto) 1.4 % 07/04/24 19:15 Baso % (Auto) 0.7 % 07/04/24 19:15 Neut # (Auto) 3.67 K/uL (1.40-6.50) 07/04/24 19:15 Lymph # (Auto) 3.03 K/uL (1.20-3.40) 07/04/24 19:15 [place] # (Auto) 0.74 K/uL (0.11-0.59) H 07/04/24 19:15 Eos # (Auto) 0.11 K/uL (0.00-0.50) 07/04/24 19:15 Baso # (Auto) 0.05 K/uL (0.00-0.20) 07/04/24 19:15 Immature Gran # (Auto) 0.02 K/uL (0.01-0.20) 07/04/24 19:15 Absolute Nucleated RBC 0.03 K/uL (0.00-0.12) 07/04/24 19:15 Nucleated RBC % (auto) 0.4 % 07/04/24 19:15 Macrocytosis Present 07/04/24 19:15 Sodium 137 mmol/L (136-145) 07/04/24 19:15 Potassium 4.1 mmol/L (3.5-5.1) 07/04/24 19:15 Chloride 99 mmol/L (98-107) 07/04/24 19:15 Carbon Dioxide 29 mmol/L (21-32) 07/04/24 19:15 Anion Gap 9 (3-11) 07/04/24 19:15 BUN 22 mg/dl (6-23) 07/04/24 19:15 Creatinine 0.94 mg/dl (0.6-1.2) 07/04/24 19:15 Est Cr Clr Drug Dosing 47.9 ml/min 07/04/24 19:15 eGFR 58.00 07/04/24 19:15 BUN/Creatinine Ratio 23.4 (10-20) H 07/04/24 19:15 Glucose 179 mg/dl (70-99(Fasting)) H 07/04/24 19:15 Lactate 1.3 mmol/L (0.4-2.0) 07/04/24 23:26 Calcium 9.9 mg/dl (8.6-10.3) 07/04/24 19:15 Magnesium 1.7 mg/dl (1.7-2.4) 07/04/24 19:15 Total Bilirubin 0.4 mg/dl (0.2-1.0) 07/04/24 19:15 AST 17 U/L (13-39) 07/04/24 19:15 ALT 7 U/L (7-52) 07/04/24 19:15 Alkaline Phosphatase 86 U/L (34-104) 07/04/24 19:15 Troponin I High Sens 16.2 pg/ml (0-14) H 07/04/24 19:15 B-Natriuretic Peptide 333 pg/ml (0-100) H 07/04/24 19:40 Total Protein 7.3 gm/dl (6.0-8.3) 07/04/24 19:15 Albumin 4.0 gm/dl (3.4-5.0) 07/04/24 19:15 Globulin 3.3 gm/dl (2.5-4.0) 07/04/24 19:15 Albumin/Globulin Ratio 1.2 (0.9-2) 07/04/24 19:15 Procalcitonin < 0.02 ng/ml (0-0.5) 07/04/24 19:15 Urine Color Yellow 07/04/24 19:58 Urine Appearance Cloudy (Clear) A 07/04/24 19:58 Urine pH 6.0 (4.5-7.5) 07/04/24 19:58 Ur Specific [place] 1.008 (1.000-1.030) 07/04/24 19:58 Urine Protein Negative (Negative) 07/04/24 19:58 Urine Glucose (UA) Negative (Negative) 07/04/24 19:58 Urine Ketones Negative (Negative) 07/04/24 19:58 Urine Blood Negative (Negative) 07/04/24 19:58 Urine Nitrite Negative (Negative) 07/04/24 19:58 Urine Bilirubin Negative (Negative) 07/04/24 19:58 Urine Urobilinogen Negative (Negative) 07/04/24 19:58 Ur Leukocyte Esterase 3+ (Negative) H 07/04/24 19:58 Urine WBC (Auto) >50 /hpf (0-5) H 07/04/24 19:58 Urine RBC (Auto) 0-2 /hpf (0-2) 07/04/24 19:58 U Hyaline Cast (Auto) 0-2 /lpf (0-2) 07/04/24 19:58 U Epithel Cells (Auto) 0-2 /hpf (0-2) 07/04/24 19:58 Urine Bacteria (Auto) 4+ (None Seen) H 07/04/24 19:58 Impressions Chest X-Ray 07/04/24 18:45 Exam(s): XR CXR 1 VIEW EXAM: XR Chest, 1 View CLINICAL HISTORY: shortness of breath. TECHNIQUE: Frontal view of the chest. COMPARISON: Portable chest single view dated 06/09/2024 FINDINGS: Lungs: Shallow inspiration. No focal airspace consolidation. The interstitial markings are stable. The pulmonary vasculature demonstrates no radiographic evidence for florid CHF. Pleural space: Unremarkable. No pneumothorax. No large pleural effusion. Heart: The cardiac silhouette is predominantly obscured by the hemidiaphragm with projection technique. The heart is presumed stable. Mediastinum: No significant abnormality identified. The trachea is midline. Bones/joints: The nasal contours are stable, accounting for obliquity and accentuated kyphosis. No tracheal deviation. No acute fracture. Tubes, lines and devices: Left subclavian approach pacer leads, stable. IMPRESSION: No definite focal consolidation or acute cardiopulmonary process identified, accounting for limitations with projection technique. Electronically signed by: Stefan Puente MD 07/04/24 21:19 PM Diagnostic Findings EKG as per my interpretation :Rate 75, paced rhythm
[2024-07-05 00:05] LABS: Troponin I High Sensitivity 24.1 pg/ml (0-14)
[2024-07-05] MEDS ORDERED: PROMETHAZINE 6.25 MG/50.25 ML BAG IV PRN (00:34)
[2024-07-05] MEDS ORDERED: ACETAMINOPHEN 325 MG TAB PO PRN (00:34)
[2024-07-05 00:50] LABS: Thyroid Stimulating Hormone 3.675 uIu/ml (0.300-4.500)
[2024-07-05] MEDS: MAGNESIUM SULFATE / D5W 1 GM/100 ML BAG IV ONE (01:26)
[2024-07-05] MEDS ORDERED: GLUCOSE 40% GEL 15 GM TUBE PO PRN (02:24)
[2024-07-05] MEDS ORDERED: GLUCOSE 10 TAB/TUBE PO PRN (02:24)
[2024-07-05] MEDS ORDERED: DEXTROSE 50% 50 ML SYRINGE IV PRN (02:24)
[2024-07-05] MEDS ORDERED: GLUCAGON FOR INJ 1 MG VIAL SQ PRN (02:24)
[2024-07-05] MEDS ORDERED: CARBOHYDRATES FOR HYPOGLYCEMIA PO PRN (02:24)
[2024-07-05] MEDS: INSULIN ASPART PER UNIT CHARGE SC SCH (02:39)
[2024-07-05] MEDS: PANTOprazole 40 MG TAB PO SCH (06:10)
[2024-07-05] MEDS: LEVOTHYROXINE SODIUM 88 MCG TABLET PO SCH (06:10)
[2024-07-05 07:39] LABS: Basophils # (auto) 0.04 K/uL (0.00-0.20); Basophils % (auto) 0.6 %; Eosinophils # (auto) 0.11 K/uL (0.00-0.50); Eosinophils % (auto) 1.7 %; Hematocrit (blood only) 25.8 % (37.0-47.0); Hemoglobin 8.8 g/dl (12.0-16.0); Immature Granulocytes # (auto) 0.02 K/uL (0.01-0.20); Immature Granulocytes % (auto) 0.3 %; Lymphocytes # (auto) 2.11 K/uL (1.20-3.40); Lymphocytes % (auto) 32.9 %; Mean Corpuscular Hemoglobin 38.9 pg (25.0-34.0); Mean Corpuscular Hgb Conc 34.1 g/dL (32.0-36.0); Mean Corpuscular Volume 114.2 fL (80.0-100.0); Monocytes # (auto) 0.78 K/uL (0.11-0.59); Monocytes % (auto) 12.1 %; Neutrophils # (auto) 3.36 K/uL (1.40-6.50); Neutrophils % (auto) 52.4 %; Nucleated RBC # (auto) 0.02 K/uL (0.00-0.12); Nucleated RBC % (auto) 0.3 %; Platelet Count 281 K/uL (130-400); RDW Coefficient of Variation 13.8 % (11.5-14.5); RDW Standard Deviation 57.6 fL (36.4-46.3); Red Blood Count 2.26 M/uL (4.20-5.40); White Blood Count 6.42 K/ul (4.8-10.8)
[2024-07-05] MEDS ORDERED: NON-FORMULARY MEDICATION (D-Mannose 500 mg Capsule) PO SCH (07:45)
[2024-07-05 07:52] LABS: BUN Creatinine Ratio 28.8 (10-20); Calcium 9.5 mg/dl (8.6-10.3); Creatinine Clr Calc Pharmacy 56.5 ml/min; Potassium 3.5 mmol/L (3.5-5.1)
[2024-07-05 07:59] LABS: Troponin I High Sensitivity 19.2 pg/ml (0-14)
[2024-07-05 08:01] LABS: Polychromasia 1+
[2024-07-05] MEDS: CYANOCOBALAMIN (B-12) 500 MCG TABLET PO SCH (08:15)
[2024-07-05] MEDS: CHOLECALCIFEROL 25 MCG (1000 UNITS) TAB PO SCH (08:15)
[2024-07-05] MEDS: DOCUSATE SODIUM 100 MG CAP PO SCH (08:15)
[2024-07-05] MEDS: VIBEGRON 75 MG TAB PO SCH (08:16)
[2024-07-05] MEDS: MAGNESIUM OXIDE 400 MG TAB PO SCH (08:16)
[2024-07-05] MEDS: DICLOFENAC SOD 1% GEL 100 GM TUBE EXT SCH (08:17)
[2024-07-05] MEDS: ENOXAPARIN INJ 40 MG/0.4 ML SYR SQ SCH (08:17)
[2024-07-05] MEDS: TORSEMIDE 20 MG TAB PO SCH (10:56)
[2024-07-05] MEDS: SPIRONOLACTONE 12.5 MG TAB PO SCH (10:56)
--- NOTE | 2024-07-05 16:39 | Hospitalist Progress Note ---
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 Hypertension, stable DM2 on oral medications, well-controlled as of recent hemoglobin A1c of 6.30 November 2023, ISS BG goal 110-140, carb count coverage Hypothyroidism, euthyroid as of current TSH Chronic anemia, hemoglobin at baseline Chronic lymphedema DVT prophylaxis. Lovenox subcu DNR as per patient's prior directives. Patient's daughter - Ms. Josselyn Judd, contact # [phone] Admission and Anticipated Discharge Date Admission Date: July 04, 2024 Subjective Pt seen in follow up of ams, UTI Sitting up in bed in NAD Denies fever, chills, chest pain, shortness of breath, abd. pain, n/v Overall feels better and answers simple questions appropriately. She knows it's June and it's 's day, thanksgiving coming up. She does not know the year. Her son and DIL are present at the bedside and she recognizes them without any difficulty. Son and DIL feel she is not back to baseline though. They report dark, foul smelling urine as well. Pt has chronic lymphedema and does not ambulate much. They say she can get to bathroom about 40 feet but she needs wheelchair to get back. Review of Systems Review of Systems: All systems reviewed & are unremarkable except as noted in Subjective Physical Exam Physical Exam: GENERAL: obese elderly F in NAD HEENT: NC/AT, EOMI NECK : Supple CHEST : Decreased breath sounds, no tenderness HEART : RRR, systolic murmur ABDOMEN: Some distention, nontender EXTREMITIES : LE edema (chronic), moves extremities NEUROLOGIC : Awake, alert, answers simple questions appropriately, knows the month but does not know the year, no facial asymmetry, speech fluent, moves extremities SKIN: Pallor, warm, dry Results & Data Results & Data Vital Signs (Past 12 Hours) Vital Signs Temp Pulse Pulse Pulse Resp BP Pulse Ox 07/05/24 15:25 36.8 C 70 16 97/57 L 93 07/05/24 13:55 65 07/05/24 10:52 36.4 C L 60 18 129/74 97 07/05/24 08:20 36.4 C L 62 16 95/57 L 95 07/05/24 07:43 07/05/24 07:24 60 O2 Del Method O2 Flow Rate 07/05/24 15:25 Room Air 07/05/24 13:55 07/05/24 10:52 Room Air 07/05/24 08:20 Nasal Cannula 2 07/05/24 07:43 Nasal Cannula 2 07/05/24 07:24 Laboratory Results 07/05/24 07/05/24 07/05/24 Range/Units 12:13 06:55 02:38 WBC 6.42 (4.8-10.8) K/ul RBC 2.26 L (4.20-5.40) M/uL Hgb 8.8 L (12.0-16.0) g/dl Hct 25.8 L (37.0-47.0) % MCV 114.2 H (80.0-100.0) fL MCH 38.9 H (25.0-34.0) pg MCHC 34.1 (32.0-36.0) g/dL RDW Std Deviation 57.6 H (36.4-46.3) fL RDW Coeff of Jon 13.8 (11.5-14.5) % Plt Count 281 (130-400) K/uL MPV 10.0 (9.4-12.4) fL Immature Gran % (Auto) 0.3 % Neut % (Auto) 52.4 % Lymph % (Auto) 32.9 % [place] % (Auto) 12.1 % Eos % (Auto) 1.7 % Baso % (Auto) 0.6 % Neut # (Auto) 3.36 (1.40-6.50) K/uL Lymph # (Auto) 2.11 (1.20-3.40) K/uL [place] # (Auto) 0.78 H (0.11-0.59) K/uL Eos # (Auto) 0.11 (0.00-0.50) K/uL Baso # (Auto) 0.04 (0.00-0.20) K/uL Immature Gran # (Auto) 0.02 (0.01-0.20) K/uL Absolute Nucleated RBC 0.02 (0.00-0.12) K/uL Nucleated RBC % (auto) 0.3 % Polychromasia 1+ Macrocytosis Sodium 141 (136-145) mmol/L Potassium 3.5 (3.5-5.1) mmol/L Chloride 101 (98-107) mmol/L Carbon Dioxide 32 (21-32) mmol/L Anion Gap 8 (3-11) BUN 23 (6-23) mg/dl Creatinine 0.80 (0.6-1.2) mg/dl Est Cr Clr Drug Dosing 56.5 ml/min eGFR 70.39 BUN/Creatinine Ratio 28.8 H (10-20) Glucose 134 H (70-99(Fasting)) mg/dl POC Glucose 124 H 136 H (70-99) mg/dl Lactate (0.4-2.0) mmol/L Calcium 9.5 (8.6-10.3) mg/dl Magnesium (1.7-2.4) mg/dl Total Bilirubin (0.2-1.0) mg/dl AST (13-39) U/L ALT (7-52) U/L Alkaline Phosphatase (34-104) U/L Troponin I High Sens 19.2 H D (0-14) pg/ml B-Natriuretic Peptide (0-100) pg/ml Total Protein (6.0-8.3) gm/dl Albumin (3.4-5.0) gm/dl Globulin (2.5-4.0) gm/dl Albumin/Globulin Ratio (0.9-2) Procalcitonin (0-0.5) ng/ml TSH (0.300-4.500) uIu/ml Urine Color Urine Appearance (Clear) Urine pH (4.5-7.5) Ur Specific [place] (1.000-1.030) Urine Protein (Negative) Urine Glucose (UA) (Negative) Urine Ketones (Negative) Urine Blood (Negative) Urine Nitrite (Negative) Urine Bilirubin (Negative) Urine Urobilinogen (Negative) Ur Leukocyte Esterase (Negative) Urine WBC (Auto) (0-5) /hpf Urine RBC (Auto) (0-2) /hpf U Hyaline Cast (Auto) (0-2) /lpf U Epithel Cells (Auto) (0-2) /hpf Urine Bacteria (Auto) (None Seen) 07/04/24 07/04/24 07/04/24 Range/Units 23:26 19:58 19:40 WBC (4.8-10.8) K/ul RBC (4.20-5.40) M/uL Hgb (12.0-16.0) g/dl Hct (37.0-47.0) % MCV (80.0-100.0) fL MCH (25.0-34.0) pg MCHC (32.0-36.0) g/dL RDW Std Deviation (36.4-46.3) fL RDW Coeff of Jon (11.5-14.5) % Plt Count (130-400) K/uL MPV (9.4-12.4) fL Immature Gran % (Auto) % Neut % (Auto) % Lymph % (Auto) % [place] % (Auto) % Eos % (Auto) % Baso % (Auto) % Neut # (Auto) (1.40-6.50) K/uL Lymph # (Auto) (1.20-3.40) K/uL [place] # (Auto) (0.11-0.59) K/uL Eos # (Auto) (0.00-0.50) K/uL Baso # (Auto) (0.00-0.20) K/uL Immature Gran # (Auto) (0.01-0.20) K/uL Absolute Nucleated RBC (0.00-0.12) K/uL Nucleated RBC % (auto) % Polychromasia Macrocytosis Sodium (136-145) mmol/L Potassium (3.5-5.1) mmol/L Chloride (98-107) mmol/L Carbon Dioxide (21-32) mmol/L Anion Gap (3-11) BUN (6-23) mg/dl Creatinine (0.6-1.2) mg/dl Est Cr Clr Drug Dosing ml/min eGFR BUN/Creatinine Ratio (10-20) Glucose (70-99(Fasting)) mg/dl POC Glucose (70-99) mg/dl Lactate 1.3 2.3 H* (0.4-2.0) mmol/L Calcium (8.6-10.3) mg/dl Magnesium (1.7-2.4) mg/dl Total Bilirubin (0.2-1.0) mg/dl AST (13-39) U/L ALT (7-52) U/L Alkaline Phosphatase (34-104) U/L Troponin I High Sens 24.1 H (0-14) pg/ml B-Natriuretic Peptide 333 H (0-100) pg/ml Total Protein (6.0-8.3) gm/dl Albumin (3.4-5.0) gm/dl Globulin (2.5-4.0) gm/dl Albumin/Globulin Ratio (0.9-2) Procalcitonin (0-0.5) ng/ml TSH 3.675 (0.300-4.500) uIu/ml Urine Color Yellow Urine Appearance Cloudy A (Clear) Urine pH 6.0 (4.5-7.5) Ur Specific [place] 1.008 (1.000-1.030) Urine Protein Negative (Negative) Urine Glucose (UA) Negative (Negative) Urine Ketones Negative (Negative) Urine Blood Negative (Negative) Urine Nitrite Negative (Negative) Urine Bilirubin Negative (Negative) Urine Urobilinogen Negative (Negative) Ur Leukocyte Esterase 3+ H (Negative) Urine WBC (Auto) >50 H (0-5) /hpf Urine RBC (Auto) 0-2 (0-2) /hpf U Hyaline Cast (Auto) 0-2 (0-2) /lpf U Epithel Cells (Auto) 0-2 (0-2) /hpf Urine Bacteria (Auto) 4+ H (None Seen) 07/04/24 Range/Units 19:15 WBC 7.62 (4.8-10.8) K/ul RBC 2.68 L (4.20-5.40) M/uL Hgb 10.5 L (12.0-16.0) g/dl Hct 30.3 L (37.0-47.0) % MCV 113.1 H (80.0-100.0) fL MCH 39.2 H (25.0-34.0) pg MCHC 34.7 (32.0-36.0) g/dL RDW Std Deviation 57.2 H (36.4-46.3) fL RDW Coeff of Jon 13.8 (11.5-14.5) % Plt Count 379 (130-400) K/uL MPV 10.0 (9.4-12.4) fL Immature Gran % (Auto) 0.3 % Neut % (Auto) 48.1 % Lymph % (Auto) 39.8 % [place] % (Auto) 9.7 % Eos % (Auto) 1.4 % Baso % (Auto) 0.7 % Neut # (Auto) 3.67 (1.40-6.50) K/uL Lymph # (Auto) 3.03 (1.20-3.40) K/uL [place] # (Auto) 0.74 H (0.11-0.59) K/uL Eos # (Auto) 0.11 (0.00-0.50) K/uL Baso # (Auto) 0.05 (0.00-0.20) K/uL Immature Gran # (Auto) 0.02 (0.01-0.20) K/uL Absolute Nucleated RBC 0.03 (0.00-0.12) K/uL Nucleated RBC % (auto) 0.4 % Polychromasia Macrocytosis Present Sodium 137 (136-145) mmol/L Potassium 4.1 (3.5-5.1) mmol/L Chloride 99 (98-107) mmol/L Carbon Dioxide 29 (21-32) mmol/L Anion Gap 9 (3-11) BUN 22 (6-23) mg/dl Creatinine 0.94 (0.6-1.2) mg/dl Est Cr Clr Drug Dosing 47.9 ml/min eGFR 58.00 BUN/Creatinine Ratio 23.4 H (10-20) Glucose 179 H (70-99(Fasting)) mg/dl POC Glucose (70-99) mg/dl Lactate (0.4-2.0) mmol/L Calcium 9.9 (8.6-10.3) mg/dl Magnesium 1.7 (1.7-2.4) mg/dl Total Bilirubin 0.4 (0.2-1.0) mg/dl AST 17 (13-39) U/L ALT 7 (7-52) U/L Alkaline Phosphatase 86 (34-104) U/L Troponin I High Sens 16.2 H (0-14) pg/ml B-Natriuretic Peptide (0-100) pg/ml Total Protein 7.3 (6.0-8.3) gm/dl Albumin 4.0 (3.4-5.0) gm/dl Globulin 3.3 (2.5-4.0) gm/dl Albumin/Globulin Ratio 1.2 (0.9-2) Procalcitonin < 0.02 (0-0.5) ng/ml TSH (0.300-4.500) uIu/ml Urine Color Urine Appearance (Clear) Urine pH (4.5-7.5) Ur Specific [place] (1.000-1.030) Urine Protein (Negative) Urine Glucose (UA) (Negative) Urine Ketones (Negative) Urine Blood (Negative) Urine Nitrite (Negative) Urine Bilirubin (Negative) Urine Urobilinogen (Negative) Ur Leukocyte Esterase (Negative) Urine WBC (Auto) (0-5) /hpf Urine RBC (Auto) (0-2) /hpf U Hyaline Cast (Auto) (0-2) /lpf U Epithel Cells (Auto) (0-2) /hpf Urine Bacteria (Auto) (None Seen) Medications Administered Current Inpatient Medications Acetaminophen (Acetaminophen 325 Mg Tab) 650 mg PO QID PRN PRN Reason: pain/fever Stop: 08/04/24 00:33 Cyanocobalamin (Cyanocobalamin (B-12) 500 Mcg Tablet) 1,000 mcg PO QAM [facility] Stop: 08/04/24 08:59 Last Admin: 07/05/24 08:15 Dose: 1,000 mcg Dextrose (Dextrose 50% 50 Ml Syringe) 25 - 50 ml IV UD PRN; Protocol PRN Reason: Hypoglycemia Protocol Stop: 08/04/24 02:23 Diclofenac Sodium (Diclofenac Sod 1% Gel 100 Gm Tube) 2 gm EXT TID [facility]; Protocol Stop: 08/04/24 08:59 Last Admin: 07/05/24 13:16 Dose: 2 gm Docusate Sodium (Docusate Sodium 100 Mg Cap) 300 mg PO BID [facility] Stop: 08/04/24 08:59 Last Admin: 07/05/24 08:15 Dose: 300 mg Enoxaparin Sodium (Enoxaparin Inj 40 Mg/0.4 Ml Syr) 40 mg SQ QAM [facility] Stop: 08/04/24 08:59 Last Admin: 07/05/24 08:17 Dose: 40 mg Glucagon (Glucagon For Inj 1 Mg Vial) 1 mg SQ UD PRN; Protocol PRN Reason: Hypoglycemia Protocol Stop: 08/04/24 02:23 Glucose (Glucose 40% Gel 15 Gm Tube) 15 - 30 gm PO UD PRN; Protocol PRN Reason: Hypoglycemia Protocol Stop: 08/04/24 02:23 Glucose (Glucose 10 Tab/Tube) 4 - 8 tab PO UD PRN; Protocol PRN Reason: Hypoglycemia Protocol Stop: 08/04/24 02:23 Ertapenem (Invanz 1000mg) 1,000 mg in 10 mls @ 2 mls/min IV Q24H [facility] Stop: 07/15/24 20:29 Promethazine HCl (Phenergan) 6.25 mg in 50.25 mls @ 201 mls/hr IV Q6H PRN PRN Reason: Nausea And Vomiting Stop: 08/04/24 00:33 Insulin Aspart (Insulin Aspart Per Unit Charge) 0 units SC ACHS [facility] Stop: 08/04/24 02:23 Last Admin: 07/05/24 13:15 Dose: 3 units Levothyroxine Sodium (Levothyroxine Sodium 88 Mcg Tablet) 88 mcg PO DAILYBB [facility] Stop: 08/04/24 06:29 Last Admin: 07/05/24 06:10 Dose: 88 mcg Magnesium Oxide (Magnesium Oxide 400 Mg Tab) 400 mg PO DAILY [facility] Stop: 08/04/24 08:59 Last Admin: 07/05/24 08:16 Dose: 400 mg Metoprolol Succinate (Metoprolol Succ 25mg Ext Rel Tab) 25 mg PO QPM [facility] Stop: 08/04/24 20:59 Miscellaneous (Carbohydrates For Hypoglycemia ) 15 - 30 gm PO UD PRN PRN Reason: Hypoglycemia Protocol Stop: 08/04/24 02:23 Pantoprazole Sodium (Pantoprazole 40 Mg Tab) 40 mg PO DAILYBB [facility] Stop: 08/04/24 06:29 Last Admin: 07/05/24 06:10 Dose: 40 mg Phenazopyridine HCl (Phenazopyridine Hcl 100 Mg Tab) 100 mg PO TID PRN PRN Reason: BLADDER PAIN Stop: 08/04/24 00:34 Spironolactone (Spironolactone 12.5 Mg Tab) 12.5 mg PO QAM [facility] Stop: 08/04/24 08:59 Last Admin: 07/05/24 10:56 Dose: 12.5 mg Torsemide (Torsemide 20 Mg Tab) 80 mg PO BID [facility] Stop: 08/04/24 08:59 Last Admin: 07/05/24 10:56 Dose: 80 mg Vibegron (Vibegron 75 Mg Tab) 75 mg PO DAILY [facility] Stop: 08/04/24 08:59 Last Admin: 07/05/24 08:16 Dose: 75 mg Vitamin D (Cholecalciferol 25 Mcg (1000 Units) Tab) 25 mcg PO QAM [facility] Stop: 08/04/24 08:59 Last Admin: 07/05/24 08:15 Dose: 25 mcg
[2024-07-05] MEDS: ERTAPENEM 1000MG 1,000 MG/10 ML SYR IV SCH (21:36)
[2024-07-05] MEDS: METOPROLOL SUCC 25MG EXT REL TAB PO SCH (21:39)
[2024-07-06 06:22] LABS: Hematocrit (blood only) 28.6 % (37.0-47.0); Hemoglobin 9.5 g/dl (12.0-16.0); Mean Corpuscular Hemoglobin 38.2 pg (25.0-34.0); Mean Corpuscular Hgb Conc 33.2 g/dL (32.0-36.0); Mean Corpuscular Volume 114.9 fL (80.0-100.0); Mean Platelet Volume 9.9 fL (9.4-12.4); Nucleated RBC # (auto) 0.02 K/uL (0.00-0.12); Nucleated RBC % (auto) 0.3 %; Platelet Count 298 K/uL (130-400); RDW Coefficient of Variation 13.7 % (11.5-14.5); RDW Standard Deviation 58.3 fL (36.4-46.3); Red Blood Count 2.49 M/uL (4.20-5.40); White Blood Count 5.79 K/ul (4.8-10.8)
[2024-07-06 06:41] LABS: BUN Creatinine Ratio 26.4 (10-20); Calcium 9.5 mg/dl (8.6-10.3); Creatinine Clr Calc Pharmacy 49.7 ml/min; Magnesium 1.8 mg/dl (1.7-2.4); Phosphorus 4.1 mg/dl (2.5-4.9); Potassium 3.4 mmol/L (3.5-5.1)
--- NOTE | 2024-07-06 16:28 | Hospitalist Progress Note ---
Date of Service July 06, 2024 Assessment & Plan (1) UTI due to extended-spectrum beta lactamase (ESBL) producing Escherichia coli: (2) Acute metabolic encephalopathy: (3) Physical deconditioning: (4) Chronic heart failure with preserved ejection fraction: (5) Severe aortic stenosis: (6) Hypothyroidism: (7) Diabetes mellitus, type II: Plan Patient now with what appears to be symptomatic E. coli ESBL UTI. Continue ertapenem Await sensitivities Continue therapies Spent some time with the patient and the patient's daughter at the bedside explaining that suspect she will be chronic that she is chronically colonized and urine will always grow bacteria, question is whether she is having symptoms. Daughter states that she continue to improve with the first week or so when she had returned home from her previous hospitalization. It was only in the last 3 to 4 days that they noticed her getting weaker and weaker and a bit more confused. Okay to [facility] Case management evaluate for possible rehab based on therapy evaluations. Admission and Anticipated Discharge Date Admission Date: July 04, 2024 Subjective Patient seems still little bit confused, has no recollection of how she got back into the hospital. Daughter at bedside Physical Exam Physical Exam: Constitutional: Alert, nontoxic HEENT: Mucous membranes moist. Lungs: Clear to auscultation, decreased, no wheezes rales or rhonchi CV: S1-S2, regular Abdomen: Soft, nontender, nondistended Extremities: No significant edema Neuro: No focal deficits Psych: Cooperative, normal mood Results & Data Results & Data Vital Signs (Past 12 Hours) Vital Signs Temp Pulse Pulse Pulse Resp BP Pulse Ox 07/06/24 15:44 36.5 C 64 20 121/75 93 07/06/24 15:20 66 07/06/24 12:02 36.5 C 60 18 109/68 93 07/06/24 09:18 07/06/24 08:05 36.6 C 62 18 117/76 91 07/06/24 07:01 70 07/06/24 04:30 36.6 C 69 18 170/71 H 93 O2 Del Method 07/06/24 15:44 Room Air 07/06/24 15:20 07/06/24 12:02 Room Air 07/06/24 09:18 Room Air 07/06/24 08:05 Room Air 07/06/24 07:01 07/06/24 04:30 Room Air Diagnostic Findings Reviewed imaging, laboratory and diagnostic studies. Pertinent findings as below. WBCs 5.7 Hemoglobin 9.5 Potassium 3.4 Creatinine 0.91 Urine culture growing E. 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
[2024-07-06] MEDS: POTASSIUM CHLORIDE CRTAB 20 MEQ TABCR PO STA (18:21)
--- NOTE | 2024-07-07 10:05 | Electrocardiogram Report ---
Test Reason : Blood Pressure : */* mmHG Vent. Rate : 73 BPM Atrial Rate : 73 BPM P-R Int : 128 ms QRS Dur : 172 ms QT Int : 474 ms P-R-T Axes : * -73 104 degrees QTcB Int : 522 ms Atrial-sensed ventricular-paced rhythm Biventricular pacemaker detected Abnormal ECG When compared with ECG of 09-Jun-2024 16:54, Vent. rate has decreased by 14 bpm Confirmed by Richie Handy ([id number]) on 07/07/2024 10:05:24 AM Referred By: REFERRED SELF Confirmed By: Richie Handy
[2024-07-07 10:36] LABS: BUN Creatinine Ratio 21.7 (10-20); Calcium 9.9 mg/dl (8.6-10.3); Creatinine Clr Calc Pharmacy 41.4 ml/min; Potassium 3.9 mmol/L (3.5-5.1)
--- NOTE | 2024-07-07 13:33 | Hospitalist Progress Note ---
Date of Service July 07, 2024 Assessment & Plan (1) UTI due to extended-spectrum beta lactamase (ESBL) producing Escherichia coli: (2) Acute metabolic encephalopathy: (3) Physical deconditioning: (4) Chronic heart failure with preserved ejection fraction: (5) Severe aortic stenosis: (6) Hypothyroidism: (7) Diabetes mellitus, type II: Plan Patient with acute metabolic encephalopathy and weakness due to presumed ESBL UTI. Appears to be back to baseline. Patient received 3 doses of IV or ertapenem, transition to oral Macrobid for a slightly prolonged course of antibiotics due to recurrent nature of UTI based on sensitivities Continue therapies Pursuing potential rehab placement with care management Fluid restriction in addition to diuretics Continue current diabetes manage Admission and Anticipated Discharge Date Admission Date: July 04, 2024 Subjective Patient states she was up and toilet edge of bed transition to chair. Was able to ambulate to bathroom with significant assistance on her rollator. Physical Exam Physical Exam: Constitutional: Alert, sitting in chair HEENT: Mucous membranes moist. Lungs: Clear to auscultation, decreased, no wheezes rales or rhonchi CV: S1-S2, regular, murmur Abdomen: Soft, nontender, nondistended Extremities: Chronic lower extremity edema,, skin is loose, less edema than previous Neuro: No focal deficits Psych: Cooperative, normal mood Results & Data Results & Data Vital Signs (Past 12 Hours) Vital Signs Temp Pulse Resp BP Pulse Ox O2 Del Method O2 Flow Rate 07/07/24 07:44 Nasal Cannula 2 07/07/24 07:31 36.7 C 79 16 106/61 92 Room Air 07/07/24 03:47 36.8 C 69 18 113/67 95 Nasal Cannula 2 Diagnostic Findings Reviewed imaging, laboratory and diagnostic studies. Pertinent findings as below. Intake and output reviewed, weight appears to be at her baseline Urine culture E. 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
[2024-07-07] MEDS: NITROFURANTOIN MONOHYDRATE 100 MG CAP PO SCH (20:55)
[2024-07-08] MEDS: PHENAZOPYRIDINE HCL 100 MG TAB PO PRN (09:31)
[2024-07-08 11:14] VITALS: BP 109/67; RESP 18; TEMP 98.2; O2SAT 90
--- NOTE | 2024-07-08 12:02 | Discharge Summary ---
Discharge Summary Date of Service July 08, 2024 Principal Dx & Hospital Course #1 = Principal Diagnosis (1) UTI due to extended-spectrum beta lactamase (ESBL) producing Escherichia coli: (2) Acute metabolic encephalopathy: (3) Physical deconditioning: (4) Chronic heart failure with preserved ejection fraction: (5) Severe aortic stenosis: (6) Hypothyroidism: (7) Diabetes mellitus, type II: Plan Patient presented to the emergency room with increasing confusion and weakness. Patient has known bacteriuria and has intermittent symptoms associated with UTIs. In the emergency room urinalysis was abnormal. Patient was admitted to the hospital and started on empiric antibiotics for presumed symptomatic UTI based on her previous cultures and sensitivities. Patient responded well to antibiotic intervention. Her metabolic encephalopathy cleared and her strength improved somewhat. Urine culture did grow out ESBL E. coli sensitive to ertapenem as well as Macrobid. She was given a 3-day courses of IV ertapenem and then transition to Macrobid for additional 5 days. She was seen by therapies while here in the hospital. She was still quite weakened and deconditioned and required rehabilitation. Case management involved in her care. They coordinated ongoing rehabilitation at [facility]. On day of discharge her vital signs are stable. Tolerating oral antibiotics. She is back to her baseline mental status. Will definitely benefit and anticipate improvement with specific and guided therapies. Son and daughter at the bedside at time of discharge updated the plan of care and agreeable. During her hos pitalization she was maintained on her usual diuretics. Her weight has remained stable and is compensated state for as far as her heart failure is concerned. Notes For Next Care Provider Recommend monitoring weight on a daily basis, dry weight approximately 100.5 kg Medication Changes From Visit Macrobibelen for ESBL E. coli UTI Admission HPI Per Admitting Provider History obtained from patient, family, and records. Medical history significant for chronic systolic heart failure (EF 45 to 50%, TTE 2023) status post biventricular pacemaker, valvular heart disease (severe , mild MR/AR), hypertension, DM2 on oral medications, hypothyroidism, GERD, chronic anemia (baseline hemoglobin 9-10), recurrent UTIs on chronic methenamine suppression Rx, history ESBL, urolithiasis, chronic lymphedema. Monthly admissions since April,. Recent confinement last month for decompensated heart failure and asymptomatic bacteriuria. SNF rehab recommended but denied due to insurance. Patient went home with support services. Patient urine noted to be cloudy over the last few days. Foul odor noted. Patient noted to be increasingly weak and slightly confused than usual. Denies abdominal or flank pain. Usual SOB and fluid retention symptoms. Patient denies chest pain. IV or Ertapenem administered at the ER. 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 Lungs: Clear to auscultation, decreased, no wheezes rales or rhonchi CV: S1-S2, regular Abdomen: Soft, nontender, nondistended Extremities: No significant edema Neuro: No focal deficits, generalized weakness Psych: Cooperative, normal mood Updated Medication List Medication Instructions Recorded Confirmed Type d-mannose 500 mg capsule 1,000 mg PO AMPM 10/22/22 07/04/24 History glucosamine-chondroitin 500 mg-400 1 tab PO AMPM 03/21/23 07/04/24 History mg tablet promethazine-DM 6.25 mg-15 mg/5 mL 5 ml PO QID PRN persistant cough 03/21/23 07/04/24 History oral syrup benzonatate 100 mg capsule 100 mg PO TID PRN Cough 12/09/23 07/04/24 History metolazone 2.5 mg tablet 2.5 mg PO DAILY PRN FLUID 12/09/23 07/04/24 History RETENTION/LAST RESORT nitrofurantoin 100 mg PO HS 04/24/24 07/04/24 History monohydrate/macrocrystals 100 mg capsule phenazopyridine 100 mg tablet 100 mg PO TID PRN BLADDER PAIN 04/24/24 07/04/24 History bisacodyl 5 mg tablet,delayed 10 mg (2 x 5 mg) PO DAILY PRN 07/08/24 Rx release (Dulcolax (bisacodyl)) Constipation #10 tabs cholecalciferol (vitamin D3) 25 1,000 unit PO QAM #30 caps 07/08/24 Rx mcg (1,000 unit) capsule colchicine 0.6 mg tablet 0.6 mg PO BID PRN gout attacks #10 07/08/24 Rx tabs conjugated estrogens 0.625 mg/gram 1 applic vaginal HS #30 grams 07/08/24 Rx vaginal cream (Premarin) cyanocobalamin (vitamin B-12) 1,000 mcg PO QAM #30 tabs 07/08/24 Rx 1,000 mcg tablet (Vitamin B-12) diclofenac sodium 1 % topical gel 2 g topical TID KNEE PAIN #100 07/08/24 Rx grams docusate sodium 100 mg capsule 300 mg (3 x 100 mg) PO BID #100 07/08/24 Rx caps dulaglutide 0.75 mg/0.5 mL 0.75 mg (0.5 mL) subcut WK #2 mL 07/08/24 Rx subcutaneous pen injector (Trulicity) levothyroxine 88 mcg tablet 88 mcg PO DAILYBB #30 tabs 07/08/24 Rx magnesium oxide 400 mg (241.3 mg 400 mg PO DAILY #30 tabs 07/08/24 Rx magnesium) tablet meclizine 25 mg tablet 25 mg PO TID PRN Dizziness #10 tabs 07/08/24 Rx metoprolol succinate 25 mg 25 mg PO QPM #30 tabs 07/08/24 Rx tablet,extended release 24 hr mirabegron 25 mg tablet,extended 25 mg PO QAM 30 days #30 tabs 07/08/24 Rx release 24 hr (Myrbetriq) nitrofurantoin 100 mg PO BID 4 days #8 caps 07/08/24 Rx monohydrate/macrocrystals 100 mg capsule omeprazole 20 mg capsule,delayed 20 mg PO DAILYBB #30 caps 07/08/24 Rx release ondansetron HCl 4 mg tablet 4 mg PO Q6H PRN NAUSEA/VOMITING 07/08/24 Rx #10 tabs potassium chloride 20 mEq 20 meq PO BID #60 tabs 07/08/24 Rx tablet,extended release(part/cryst) spironolactone 25 mg tablet 12.5 mg (1/2 x 25 mg) PO QAM #30 07/08/24 Rx (Aldactone) tabs torsemide 20 mg tablet 80 mg (4 x 20 mg) PO BID 30 days 07/08/24 Rx #240 tabs Hospital Stay Data Consultations 07/04/24 20:32 ED Decision to Admit Stat Diagnostic Imagining Performed Reviewed imaging, laboratory and diagnostic studies. Pertinent findings as below. Electrolytes within normal range Creatinine 1.06 Glucose overall well-controlled WBCs 5.7 Hemoglobin 9.5 Urine culture grew out ESBL coli sensitive to Macrobid and ertapenem which were the 2 antibiotic she was treated with. Pending Results Patient Have Any Pending Studies at Discharge: No Discharge Instructions Given to Patient (Per Discharging Provider) Call 911 and go to the Emergency Room if: * You have tightness or pain in your chest that does not go away with rest or Nitroglycerin * You are very short of breath even with rest Call your doctor if any of the following symptoms or problems start or get worse: * Shortness of breath or difficulty breathing * Wake up at night short of breath * Chest pain * Cough * Swelling of your hands, fee, or legs * More fatigued or tired with your normal activity * Palpitations - sudden fast heart beats WEIGHT * Weigh yourself every morning after using the bathroom. * Use the same scale. * Wear the same amount of clothing. * Write your weight down on your chart. * Call your doctor if you gain more than 2-3 pounds in 1-2 days. Dry weight is 100.5 kg MEDICATIONS * Use this discharge instruction sheet for instructions. * Take your medications at the time your doctor ordered. * Do not skip a dose of your medicines. * If you miss a dose of medicine, take as soon as possible, but DO NOT DOUBLE A DOSE. * Read your medicine information when you get home. * Know all of the side effects of your medicine. * Call your doctor's office if you have any side effects. * Be sure all of your doctors know what medicine and herbs you take (including cold, flu, and herbal medicine). * Pain Medicine: If you do not get relief from your pain, please call your doctor for help. Take the following with you to your follow-up doctor appointments: * Weight Chart * Medication List * List of questions Do not drink excessive alcohol, beer or wine. Total Time Total Time Spent Total Time Spent (In Minutes): 39
[2024-07-08 14:26] VITALS: PULSE 60
== END 2024-07-08 15:30 | DRG 689 ==
LOC: ED 18:37 → SUATTDRO 23:53 → 2W 23:53

== ENCOUNTER 2024-07-20 13:52 | Observation (INO) ==
[2024-07-20 15:22] LABS: Basophils # (auto) 0.04 K/uL (0.00-0.20); Basophils % (auto) 0.5 %; Eosinophils # (auto) 0.07 K/uL (0.00-0.50); Eosinophils % (auto) 0.8 %; Hematocrit (blood only) 28.7 % (37.0-47.0); Hemoglobin 9.6 g/dl (12.0-16.0); Immature Granulocytes # (auto) 0.04 K/uL (0.01-0.20); Immature Granulocytes % (auto) 0.5 %; Lymphocytes # (auto) 2.12 K/uL (1.20-3.40); Mean Corpuscular Hemoglobin 38.6 pg (25.0-34.0); Mean Corpuscular Hgb Conc 33.4 g/dL (32.0-36.0); Mean Corpuscular Volume 115.3 fL (80.0-100.0); Mean Platelet Volume 9.7 fL (9.4-12.4); Monocytes # (auto) 0.97 K/uL (0.11-0.59); Neutrophils # (auto) 5.58 K/uL (1.40-6.50); Neutrophils % (auto) 63.2 %; Nucleated RBC # (auto) 0.04 K/uL (0.00-0.12); Nucleated RBC % (auto) 0.5 %; Platelet Count 356 K/uL (130-400); RDW Standard Deviation 60.3 fL (36.4-46.3); Red Blood Count 2.49 M/uL (4.20-5.40); White Blood Count 8.82 K/ul (4.8-10.8)
[2024-07-20 15:38] LABS: Alanine Aminotransferase 8 U/L (7-52); Albumin Globulin Ratio 1.3 (0.9-2); Alkaline Phosphatase 80 U/L (34-104); Anion Gap 7 (3-11); Aspartate Aminotransferase 12 U/L (13-39); BUN Creatinine Ratio 20.4 (10-20); Bilirubin,Total 0.5 mg/dl (0.2-1.0); Blood Urea Nitrogen 19 mg/dl (6-23); Calcium 9.4 mg/dl (8.6-10.3); Carbon Dioxide 29 mmol/L (21-32); Chloride 100 mmol/L (98-107); Globulin 3.2 gm/dl (2.5-4.0); Glucose 205 mg/dl (70-99(Fasting)); Sodium 136 mmol/L (136-145); Total Protein 7.2 gm/dl (6.0-8.3)
[2024-07-20 15:45] LABS: Macrocytosis Present
[2024-07-20 15:48] LABS: Partial Thromboplastin Ratio 0.9; Partial Thromboplastin Time 25 Seconds (21-31); Prothrombin Time 10.9 Seconds (9.0-12.0)
--- NOTE | 2024-07-20 16:29 | XRay Report ---
EXAM: Radiograph of the Abdomen 1 View INDICATION: Assess stool burden. TECHNIQUE: Frontal supine view of the abdomen/pelvis. COMPARISON: 04/24/2024 FINDINGS: Limitations: None. Gastrointestinal tract: No interval change large amounts of stool throughout the colon. No obstruction. Organs: Visualized organ shadows appear grossly normal. Bones/joints: Degenerative changes noted in the scoliotic spine. No acute osseous abnormality noted. Soft tissues: No abnormality noted. No radiopaque foreign body noted. IMPRESSION: No interval change large amounts of stool throughout the colon. No obstruction. ACT 112: Negative or not required by law. Electronically signed by Karely Springer 07-20-2024 4:16 PM
--- NOTE | 2024-07-20 17:45 | Emergency Department Note ---
Impression & Plan Constipation, Anemia, Nausea ED Provider Note NAME: NITIN PURCELL AGE: 89 SEX: F : 1935 ARRIVES VIA: Walk-In INFORMANT: [Patient][family] ED PROVIDER(S): [Nigel Gomez MD] CHIEF COMPLAINT: GI assessment HISTORY OF PRESENT ILLNESS: The patient is an 89-year-old female with a history of previous constipation. She recently was at rehab. She has not had a bowel movement since discharge, for at least 4 days. The family believes that they may have used less stool softeners and laxatives at rehab and as a result, the patient is not constipated. The patient has done well with enemas in the past. She was referred by her doctors office for evaluation. There is no abdominal pain, no vomiting. No fever. She does complain of some abdominal distention and some subtle nausea. She is using multiple [id number] meds without relief. PMHx/PSHx/Social Hx: See Below PHYSICAL EXAM: GENERAL: Patient is in no acute distress. HEENT: No acute trauma, normocephalic atraumatic, mucous membranes moist, no nasal congestion. NECK: No stridor, no adenopathy, no meningismus, trachea is midline. LUNGS: Clear to auscultation bilaterally when listening anterior, no wheeze, no rhonchi, breath sounds equal. HEART: 3/6 systolic murmur, regular rate and rhythm. ABDOMEN: Soft, nontender, no peritonitis. Obese. Reducible umbilical hernia noted. EXTREMITIES: No cyanosis, full range of motion of all the joints without pain or difficulty. NEUROLOGIC: Awake and alert, no acute motor or sensory deficits, no focal weakness. SKIN: No jaundice, no diaphoresis. DIFFERENTIAL DIAGNOSIS: Bowel obstruction, constipation, dehydration, among others. EMERGENCY DEPARTMENT PROCEDURES: MEDICAL DECISION MAKING: There is no leukocytosis. The patient is anemic however, this is a chronic finding looking back at previous testing. There is a normal platelet count. No coagulopathy. No renal failure or significant electrolyte abnormality. No concerning liver enzyme elevation. KUB shows significant constipation without bowel obstruction. On exam, patient was not febrile or toxic. There was no peritonitis. I spoke with the patient and family. The decision was made to try enema therapy. A soapsuds enema was ordered. She did have some bowel movement after the enema. A milk and molasses enema was then ordered. I spoke with the patient and her family. Given her age, given her weakness, given the inability right now for her to move her bowels, the family is not comfortable with her being discharged home. The patient will be hospitalized overnight for continued enemas and a bowel regimen. Hopefully, by the morning, she will be improved and able to be discharged home. I did speak with case management, the on-call hospitalist was consulted. Prior/Outside records/notes reviewed: None Imaging/x-ray results per my interpretation: KUB shows significant constipation. There was no bowel obstruction. Chronic Medical/Social conditions affecting care: Advanced age. Care/Management discussed with: Case management, the on-call hospitalist. Level of care consideration(s): After review of the information above and other included data: --I believe the patient requires escalation of care to admission DISPOSITION: Admission Past Med/Surg History Problem List (Updated 07/20/24 @ 19:56 by Nigel Gomez MD) Nausea (Acute) Anemia (Acute) Constipation (Acute) Acute metabolic encephalopathy Complicated urinary tract infection (Acute) Non-ST elevation [place] (NSTEMI) (Acute) Elevated lactic acid level (Acute) Generalized weakness (Acute) Physical deconditioning Asymptomatic bacteriuria Acute systolic heart failure due to valvular disease Acute on chronic systolic congestive heart failure Anemia (Acute) CHF (congestive heart failure) (Acute) Shortness of breath (Acute) Nocturnal hypoxia Recurrent UTI Complicated UTI (urinary tract infection) Acute on chronic combined systolic and diastolic heart failure Knee contusion Urinary tract infection due to Proteus Hip pain, acute Ambulatory dysfunction (Acute) Acute knee pain (Acute) STEVE (acute kidney injury) Chronic combined systolic (congestive) and diastolic (congestive) heart failure CHF (congestive heart failure) (Acute) Generalized weakness (Acute) UTI due to extended-spectrum beta lactamase (ESBL) producing Escherichia coli (Acute) UTI due to extended-spectrum beta lactamase (ESBL) producing Escherichia coli Chronic heart failure with preserved ejection fraction Acute on chronic heart failure with preserved ejection fraction (HFpEF) Severe aortic stenosis CHF (congestive heart failure) Cough (Acute) Acute foot pain (Acute) Fall (Acute) HTN (hypertension) Right calcaneal fracture COVID-19 (Acute) DVT prophylaxis UTI due to Klebsiella species Diabetes mellitus, type II (Chronic) Aortic stenosis, moderate (Chronic) Pacemaker (Chronic) Lymphedema (Chronic) Dyspnea on exertion (Acute) History of recurrent UTIs (Chronic) Arthritis (Chronic) LBBB (left bundle branch block) (Chronic) Vertigo (Chronic) Systolic heart failure (Chronic) Hypothyroidism (Chronic) History of knee replacement, total (Chronic) NICM (nonischemic cardiomyopathy) (Chronic) Medical History Dizziness Lactic acidemia Acute UTI Hypoxia Pneumonia Surgical History History of hysterectomy Hx of cholecystectomy Family History Other Diabetes Heart disease Hypertension Social History Smoking Status: Never smoker Second Hand Exposure: No; Do You Dip or Chew Tobacco: No; Hx Alcohol Use: No Hx Substance Use: No Preferred Language: Mohawk Communication Ability: Effective B2B Outside Sales Representative Required: No Beliefs That Will Affect Care: None marital status: / Current Living Situation: Alone Current Living Situation Comment: caregivers current occupational status: retired How many Children do You have: 1 Feels Safe at Home: Yes Assistive Devices: Oxygen - at Night and Walker Allergies Allergies Allergy/AdvReac Type Severity Reaction Status Date / Time aspirin Allergy Intermediate Hives, Verified 07/04/24 21:25 shortness of breath ibuprofen Allergy Intermediate Rash, hives Verified 07/04/24 21:25 Penicillins Allergy Intermediate Rash, hives Verified 07/04/24 21:25 adhesive Allergy Mild Reddened Verified 07/04/24 21:25 and sore skin morphine AdvReac Severe BLACKED OUT Verified 07/04/24 21:25 ciprofloxacin AdvReac Intermediate DIZZINESS/H Verified 07/04/24 21:25 OARSE/DISOR IENTED sulfamethoxazole AdvReac Intermediate NAUSEA/VOMI Verified 07/04/24 21:25 [From Bactrim] TING/DIZZIN ESS trimethoprim [From Bactrim] AdvReac Intermediate NAUSEA/VOMI Verified 07/04/24 21:25 TING/DIZZIN ESS prednisone AdvReac Mild CONFUSION/BLURRED Verified 07/04/24 21:25 VISION/WEAKNESS Home Meds Previous Rx's Medication Instructions Recorded bisacodyl 5 mg tablet,delayed 10 mg (2 x 5 mg) PO DAILY PRN 07/08/24 release (Dulcolax (bisacodyl)) Constipation #10 tabs cholecalciferol (vitamin D3) 25 1,000 unit PO QAM #30 caps 07/08/24 mcg (1,000 unit) capsule colchicine 0.6 mg tablet 0.6 mg PO BID PRN gout attacks #10 07/08/24 tabs conjugated estrogens 0.625 mg/gram 1 applic vaginal HS #30 grams 07/08/24 vaginal cream (Premarin) cyanocobalamin (vitamin B-12) 1,000 mcg PO QAM #30 tabs 07/08/24 1,000 mcg tablet (Vitamin B-12) diclofenac sodium 1 % topical gel 2 g topical TID KNEE PAIN #100 07/08/24 grams docusate sodium 100 mg capsule 300 mg (3 x 100 mg) PO BID #100 07/08/24 caps dulaglutide 0.75 mg/0.5 mL 0.75 mg (0.5 mL) subcut WK #2 mL 07/08/24 subcutaneous pen injector (Trulicity) levothyroxine 88 mcg tablet 88 mcg PO DAILYBB #30 tabs 07/08/24 magnesium oxide 400 mg (241.3 mg 400 mg PO DAILY #30 tabs 07/08/24 magnesium) tablet meclizine 25 mg tablet 25 mg PO TID PRN Dizziness #10 tabs 07/08/24 metoprolol succinate 25 mg 25 mg PO QPM #30 tabs 07/08/24 tablet,extended release 24 hr mirabegron 25 mg tablet,extended 25 mg PO QAM 30 days #30 tabs 07/08/24 release 24 hr (Myrbetriq) omeprazole 20 mg capsule,delayed 20 mg PO DAILYBB #30 caps 07/08/24 release ondansetron HCl 4 mg tablet 4 mg PO Q6H PRN NAUSEA/VOMITING 07/08/24 #10 tabs potassium chloride 20 mEq 20 meq PO BID #60 tabs 07/08/24 tablet,extended release(part/cryst) spironolactone 25 mg tablet 12.5 mg (1/2 x 25 mg) PO QAM #30 07/08/24 (Aldactone) tabs torsemide 20 mg tablet 80 mg (4 x 20 mg) PO BID 30 days 07/08/24 #240 tabs Results & Data (ED) Vital Signs Vital Signs - 24 hr 07/20/24 14:07 07/20/24 16:28 07/20/24 16:56 Temperature 36.7 C Temperature Source Skin Pulse Rate 85 68 Pulse Rate [Right Brachial] 69 Pulse Rhythm [Right Brachial] Regular Pulse Strength [Right Brachial] Normal Respiratory Rate 18 18 Respiratory Effort / Characteristics Non-Labored Respiratory Depth Normal Respiratory Pattern Regular Blood Pressure 128/58 L Blood Pressure [Right Arm] 125/76 Blood Pressure Mean 81 Blood Pressure Mean [Right Arm] 92 Blood Pressure Position [Right Arm] Lying Pulse Oximetry 98 96 Oxygen Delivery Method Nasal Cannula Oxygen Flow Rate 3 Sepsis Recent Fever Within 48 Hours No Sepsis New/Unexplained Change in Mental Status No Sepsis Action Taken by Nursing No Action Required 07/20/24 18:00 Temperature Temperature Source Pulse Rate Pulse Rate [Right Brachial] 75 Pulse Rhythm [Right Brachial] Regular Pulse Strength [Right Brachial] Normal Respiratory Rate 18 Respiratory Effort / Characteristics Non-Labored Respiratory Depth Normal Respiratory Pattern Regular Blood Pressure Blood Pressure [Right Arm] 126/71 Blood Pressure Mean Blood Pressure Mean [Right Arm] 89 Blood Pressure Position [Right Arm] Lying Pulse Oximetry 96 Oxygen Delivery Method Room Air Oxygen Flow Rate Sepsis Recent Fever Within 48 Hours Sepsis New/Unexplained Change in Mental Status Sepsis Action Taken by [facility] Medications Current Medication List: was personally reviewed by me Laboratory Data Attestation: I reviewed the patient's lab results. 07/20/24 15:08 07/20/24 15:08 Lab Results 07/20/24 Range/Units 15:08 WBC 8.82 (4.8-10.8) K/ul RBC 2.49 L (4.20-5.40) M/uL Hgb 9.6 L (12.0-16.0) g/dl Hct 28.7 L (37.0-47.0) % MCV 115.3 H (80.0-100.0) fL MCH 38.6 H (25.0-34.0) pg MCHC 33.4 (32.0-36.0) g/dL RDW Std Deviation 60.3 H (36.4-46.3) fL RDW Coeff of Jon 14.0 (11.5-14.5) % Plt Count 356 (130-400) K/uL MPV 9.7 (9.4-12.4) fL Immature Gran % (Auto) 0.5 % Neut % (Auto) 63.2 % Lymph % (Auto) 24.0 % [place] % (Auto) 11.0 % Eos % (Auto) 0.8 % Baso % (Auto) 0.5 % Neut # (Auto) 5.58 (1.40-6.50) K/uL Lymph # (Auto) 2.12 (1.20-3.40) K/uL [place] # (Auto) 0.97 H (0.11-0.59) K/uL Eos # (Auto) 0.07 (0.00-0.50) K/uL Baso # (Auto) 0.04 (0.00-0.20) K/uL Immature Gran # (Auto) 0.04 (0.01-0.20) K/uL Absolute Nucleated RBC 0.04 (0.00-0.12) K/uL Nucleated RBC % (auto) 0.5 % Macrocytosis Present PT 10.9 (9.0-12.0) Seconds INR 1.0 (0.9-1.1) APTT 25 (21-31) Seconds PTT Ratio 0.9 Sodium 136 (136-145) mmol/L Potassium 4.0 (3.5-5.1) mmol/L Chloride 100 (98-107) mmol/L Carbon Dioxide 29 (21-32) mmol/L Anion Gap 7 (3-11) BUN 19 (6-23) mg/dl Creatinine 0.93 (0.6-1.2) mg/dl Est Cr Clr Drug Dosing Not Reportable eGFR 58.75 BUN/Creatinine Ratio 20.4 H (10-20) Glucose 205 H (70-99(Fasting)) mg/dl Calcium 9.4 (8.6-10.3) mg/dl Total Bilirubin 0.5 (0.2-1.0) mg/dl AST 12 L (13-39) U/L ALT 8 (7-52) U/L Alkaline Phosphatase 80 (34-104) U/L Total Protein 7.2 (6.0-8.3) gm/dl Albumin 4.0 (3.4-5.0) gm/dl Globulin 3.2 (2.5-4.0) gm/dl Albumin/Globulin Ratio 1.3 (0.9-2) Imaging Data Radiologist's Impression: KUB X-Ray 07/20/24 15:05 EXAM: Radiograph of the Abdomen 1 View INDICATION: Assess stool burden. TECHNIQUE: Frontal supine view of the abdomen/pelvis. COMPARISON: 04/24/2024 FINDINGS: Limitations: None. Gastrointestinal tract: No interval change large amounts of stool throughout the colon. No obstruction. Organs: Visualized organ shadows appear grossly normal. Bones/joints: Degenerative changes noted in the scoliotic spine. No acute osseous abnormality noted. Soft tissues: No abnormality noted. No radiopaque foreign body noted. IMPRESSION: No interval change large amounts of stool throughout the colon. No obstruction. ACT 112: Negative or not required by law. Electronically signed by Karely Springer 07-20-2024 4:16 PM Discharge Plan Visit Data Chief Complaint: GI Assessment Stated Complaint: IMPACTED BOWEL ED Provider: Nigel Gomez Discharge Problem: Constipation, Anemia, Nausea Patient Disposition: Admitted As Inpatient Condition: Good Forms Stand Alone Forms: [facility] Prescriptions Prescriptions: No Action torsemide 20 mg tablet 80 mg PO BID 30 Days Qty: 240 0RF ondansetron HCl 4 mg tablet 4 mg PO Q6H PRN (Reason: NAUSEA/VOMITING) Qty: 10 0RF cyanocobalamin (vitamin B-12) [Vitamin B-12] 1,000 mcg Tablet 1,000 mcg PO QAM Qty: 30 0RF spironolactone [Aldactone] 25 mg tablet 12.5 mg PO QAM Qty: 30 0RF levothyroxine 88 mcg tablet 88 mcg PO DAILYBB Qty: 30 0RF potassium chloride 20 mEq tablet,ER particles/crystals 20 meq PO BID Qty: 60 0RF magnesium oxide 400 mg (241.3 mg magnesium) tablet 400 mg PO DAILY Qty: 30 0RF meclizine 25 mg tablet 25 mg PO TID PRN (Reason: Dizziness) Qty: 10 0RF Premarin 0.625 mg/gram cream 1 applic vaginal HS Qty: 30 0RF Rx Instructions: APPLY PEA-SIZE AMT TO VULUAR AT HS FOR IRRITATION docusate sodium 100 mg Capsule 300 mg PO BID Qty: 100 0RF omeprazole 20 mg capsule,delayed release(DR/EC) 20 mg PO DAILYBB Qty: 30 0RF bisacodyl [Dulcolax (bisacodyl)] 5 mg Tablet,Delayed Release (Dr/Ec) 10 mg PO DAILY PRN (Reason: Constipation) Qty: 10 0RF metoprolol succinate 25 mg Tablet Extended Release 24 Hr 25 mg PO QPM Qty: 30 0RF colchicine 0.6 mg tablet 0.6 mg PO BID PRN (Reason: gout attacks) Qty: 10 0RF cholecalciferol (vitamin D3) 25 mcg (1,000 unit) capsule 1,000 unit PO QAM Qty: 30 0RF diclofenac sodium 1 % Gel 2 g TOPICAL TID Qty: 100 0RF mirabegron [Myrbetriq] 25 mg tablet extended release 24 hr 25 mg PO QAM 30 Days Qty: 30 0RF Trulicity 0.75 mg/0.5 mL pen injector 0.75 mg SUBCUT WK Qty: 2 0RF Rx Instructions: wednesdays Referrals Referrals: Verónica Benavides MD [Primary Care Provider] - Discharge Problem: Constipation Qualifiers: Constipation type: unspecified constipation type Qualified Code(s): K59.00 - Constipation, unspecified Anemia Qualifiers: Anemia type: unspecified type Qualified Code(s): D64.9 - Anemia, unspecified
--- NOTE | 2024-07-20 23:20 | History & Physical Report ---
Date of Service July 20, 2024 Assessment & Plan (1) Constipation: Plan: 89-year-old female with past medical history significant for type 2 diabetes, CKD stage III, hypothyroidism, hyperlipidemia, diabetic retinopathy, first- degree atrioventricular block, chronic combined systolic and diastolic CHF, severe aortic stenosis, history of CAD,biventricular cardiac pacemaker, GERD, morbid obesity, recurrent UTI, lymphedema of both lower extremities, benign par oxysmal vertigo, anemia, aspirin allergy, ACEI/ARB contraindicated, ESBL E. 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, ventral hernia without obstruction, ambulatory dysfunction and ambulates with a rollator walker and lives alone at home and has caregivers and daughter lives close by was brought in because of constipation. Patient was admitted in May for acute on chronic systolic and diastolic CHF. Again in hospital from 07/04/2024 to 07/08/2024 for ESBL UTI. Patient was in rehab. Since discharge from rehab she is constipated. Says she did not move her bowels for last about 4 days. Has some abdominal discomfort. In the ER she was given enema and with initial enema she had only small bowel movement when the family did not want to take her back home. With repeat enema she had about 4 bowel movements coupe of them seems moderate-sized. Currently resting comfortably. Hemodynamically stable. Uses oxygen in the nighttime. Denies any headache. She says she is always dizzy. Currently no runny nose or sore throat. No cough. No fevers. No shortness of breath. She says she has chest discomfort where one of the ECG sticker placed. No nausea. Micturating okay. Constipation Moved bowels after 2 enemas in the ER Continue stool softeners Continue monitor Diabetes Sliding scale Will monitor Chronic systolic and diastolic CHF Severe aortic stenosis Continue home diuretics monitor for volume overload Bilateral lower extremity lymphedema will follow Dopplers CKD stage III Creatinine 0.9 Will follow labs History of CAD On beta-barry Hypothyroidism On Synthyroid GERD On omeprazole Chronic anemia Hemoglobin 9.6 around baseline DVT prophylaxis Heparin subcu Disposition Observation medical floor PT OT in a.m. If stable possible discharge in a.m. History of Present Illness Chief Complaint: Constipation Primary Care Provider: Verónica Benavides MD 89-year-old female with past medical history significant for type 2 diabetes, CKD stage III, hypothyroidism, hyperlipidemia, diabetic retinopathy, first- degree atrioventricular block, chronic combined systolic and diastolic CHF, severe aortic stenosis, history of CAD,biventricular cardiac pacemaker, GERD, morbid obesity, recurrent UTI, lymphedema of both lower extremities, benign paroxysmal vertigo, anemia, aspirin allergy, ACEI/ARB contraindicated, ESBL E. 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, ventral hernia without obstruction, ambulatory dysfunction and ambulates with a rollator walker and lives alone at home and has caregivers and daughter lives close by was brought in because of constipation. Patient was admitted in May for acute on chronic systolic and diastolic CHF. Again in hospital from 07/04/2024 to 07/08/2024 for ESBL UTI. Patient was in rehab. Since discharge from rehab she is constipated. Says she did not move her bowels for last about 4 days. Has some abdominal discomfort. In the ER she was given enema and with initial enema she had only small bowel movement when the family did not want to take her back home. With repeat enema she had about 4 bowel mov ements coupe of them seems moderate-sized. Currently resting comfortably. Hemodynamically stable. Uses oxygen in the nighttime. Denies any headache. She says she is always dizzy. Currently no runny nose or sore throat. No cough. No fevers. No shortness of breath. She says she has chest discomfort where one of the ECG sticker placed. No nausea. Micturating okay. Past medical history. As mentioned above Past surgical history. Bilateral total knee replacement. ESWL. Laparoscopic cholecystectomy. Right suture repair of entropion. Total hysterectomy for fibroids. Social history. . No smoking. No alcohol use. No drug use. Family history. Mother had diabetes. [place]. Hypertension. Allergies Allergy/AdvReac Type Severity Reaction Status Date / Time aspirin Allergy Intermediate Hives, Verified 07/04/24 21:25 shortness of breath ibuprofen Allergy Intermediate Rash, hives Verified 07/04/24 21:25 Penicillins Allergy Intermediate Rash, hives Verified 07/04/24 21:25 adhesive Allergy Mild Reddened Verified 07/04/24 21:25 and sore skin morphine AdvReac Severe BLACKED OUT Verified 07/04/24 21:25 ciprofloxacin AdvReac Intermediate DIZZINESS/H Verified 07/04/24 21:25 OARSE/DISOR IENTED sulfamethoxazole AdvReac Intermediate NAUSEA/VOMI Verified 07/04/24 21:25 [From Bactrim] TING/DIZZIN ESS trimethoprim [From Bactrim] AdvReac Intermediate NAUSEA/VOMI Verified 07/04/24 21:25 TING/DIZZIN ESS prednisone AdvReac Mild CONFUSION/BLURRED Verified 07/04/24 21:25 VISION/WEAKNESS Home Medications Medication Instructions Recorded Confirmed Type bisacodyl 5 mg tablet,delayed 10 mg (2 x 5 mg) PO DAILY PRN 07/08/24 07/20/24 Rx release (Dulcolax (bisacodyl)) Constipation #10 tabs cholecalciferol (vitamin D3) 25 1,000 unit PO QAM #30 caps 07/08/24 07/20/24 Rx mcg (1,000 unit) capsule colchicine 0.6 mg tablet 0.6 mg PO BID PRN gout attacks #10 07/08/24 07/20/24 Rx tabs conjugated estrogens 0.625 mg/gram 1 applic vaginal HS #30 grams 07/08/24 07/20/24 Rx vaginal cream (Premarin) cyanocobalamin (vitamin B-12) 1,000 mcg PO QAM #30 tabs 07/08/24 07/20/24 Rx 1,000 mcg tablet (Vitamin B-12) diclofenac sodium 1 % topical gel 2 g topical TID KNEE PAIN #100 07/08/24 07/20/24 Rx grams docusate sodium 100 mg capsule 300 mg (3 x 100 mg) PO BID #100 07/08/24 07/20/24 Rx caps dulaglutide 0.75 mg/0.5 mL 0.75 mg (0.5 mL) subcut WK #2 mL 07/08/24 07/20/24 Rx subcutaneous pen injector (Trulicity) levothyroxine 88 mcg tablet 88 mcg PO DAILYBB #30 tabs 07/08/24 07/20/24 Rx magnesium oxide 400 mg (241.3 mg 400 mg PO DAILY #30 tabs 07/08/24 07/20/24 Rx magnesium) tablet meclizine 25 mg tablet 25 mg PO TID PRN Dizziness #10 tabs 07/08/24 07/20/24 Rx metoprolol succinate 25 mg 25 mg PO QPM #30 tabs 07/08/24 07/20/24 Rx tablet,extended release 24 hr mirabegron 25 mg tablet,extended 25 mg PO QAM 30 days #30 tabs 07/08/24 07/20/24 Rx release 24 hr (Myrbetriq) omeprazole 20 mg capsule,delayed 20 mg PO DAILYBB #30 caps 07/08/24 07/20/24 Rx release ondansetron HCl 4 mg tablet 4 mg PO Q6H PRN NAUSEA/VOMITING 07/08/24 07/20/24 Rx #10 tabs potassium chloride 20 mEq 20 meq PO BID #60 tabs 07/08/24 07/20/24 Rx tablet,extended release(part/cryst) spironolactone 25 mg tablet 12.5 mg (1/2 x 25 mg) PO QAM #30 07/08/24 07/20/24 Rx (Aldactone) tabs torsemide 20 mg tablet 80 mg (4 x 20 mg) PO BID 30 days 07/08/24 07/20/24 Rx #240 tabs Past Med/Surg History Problem List (Updated 07/20/24 @ 19:56 by Nigel Gomez MD) Nausea (Acute) Anemia (Acute) Constipation (Acute) Acute metabolic encephalopathy Complicated urinary tract infection (Acute) Non-ST elevation [place] (NSTEMI) (Acute) Elevated lactic acid level (Acute) Generalized weakness (Acute) Physical deconditioning Asymptomatic bacteriuria Acute systolic heart failure due to valvular disease Acute on chronic systolic congestive heart failure Anemia (Acute) CHF (congestive heart failure) (Acute) Shortness of breath (Acute) Nocturnal hypoxia Recurrent UTI Complicated UTI (urinary tract infection) Acute on chronic combined systolic and diastolic heart failure Knee contusion Urinary tract infection due to Proteus Hip pain, acute Ambulatory dysfunction (Acute) Acute knee pain (Acute) STEVE (acute kidney injury) Chronic combined systolic (congestive) and diastolic (congestive) heart failure CHF (congestive heart failure) (Acute) Generalized weakness (Acute) UTI due to extended-spectrum beta lactamase (ESBL) producing Escherichia coli (Acute) UTI due to extended-spectrum beta lactamase (ESBL) producing Escherichia coli Chronic heart failure with preserved ejection fraction Acute on chronic heart failure with preserved ejection fraction (HFpEF) Severe aortic stenosis CHF (congestive heart failure) Cough (Acute) Acute foot pain (Acute) Fall (Acute) HTN (hypertension) Right calcaneal fracture COVID-19 (Acute) DVT prophylaxis UTI due to Klebsiella species Diabetes mellitus, type II (Chronic) Aortic stenosis, moderate (Chronic) Pacemaker (Chronic) Lymphedema (Chronic) Dyspnea on exertion (Acute) History of recurrent UTIs (Chronic) Arthritis (Chronic) LBBB (left bundle branch block) (Chronic) Vertigo (Chronic) Systolic heart failure (Chronic) Hypothyroidism (Chronic) History of knee replacement, total (Chronic) NICM (nonischemic cardiomyopathy) (Chronic) Medical History Dizziness Lactic acidemia Acute UTI Hypoxia Pneumonia Surgical History History of hysterectomy Hx of cholecystectomy Family History Other Diabetes Heart disease Hypertension Social History Smoking Status: Never smoker Second Hand Exposure: No; Do You Dip or Chew Tobacco: No; Hx Alcohol Use: No Hx Substance Use: No Preferred Language: Croatian Communication Ability: Effective Grocery Checker Required: No Beliefs That Will Affect Care: None marital status: / Current Living Situation: Alone Current Living Situation Comment: caregivers current occupational status: retired How many Children do You have: 1 Other Information That Helps Us Care for You: No Feels Safe at Home: Yes Safety Concerns: Feels Safe At This Time Assistive Devices: Denture - Upper, Denture - Lower, Oxygen - at Night and Walker Review of Systems Review of Systems: All systems reviewed & are unremarkable except as noted in HPI & below Physical Exam Physical Exam: General- Not in distress. Head- atraumatic Eyes- PERRL. ENT- oropharynx clear Neck- supple, no JVD. Lungs- clear to auscultation no wheezing or crackles. Heart- regular rhythm; ESM murmur, no gallop Abdomen- normal bowel sounds, soft, nontender, ventral hernia seen Extremities- b/l lower extremity lymphedema seen, no erythema seen Neuro- alert, oriented PERRL, no facial palsy; no dysarthria; moves extremities Results & Data Results & Data Vital Signs (Past 12 Hours) Vital Signs Temp Pulse Pulse Resp BP BP Pulse Ox 07/20/24 20:00 74 16 124/74 96 07/20/24 18:00 75 18 126/71 96 07/20/24 16:56 68 07/20/24 16:28 69 18 125/76 96 07/20/24 14:07 36.7 C 85 18 128/58 L 98 O2 Del Method O2 Flow Rate 07/20/24 20:00 Room Air 07/20/24 18:00 Room Air 07/20/24 16:56 07/20/24 16:28 Nasal Cannula 3 07/20/24 14:07 Diagnostic Findings Laboratory Results WBC 8.82 K/ul (4.8-10.8) 07/20/24 15:08 RBC 2.49 M/uL (4.20-5.40) L 07/20/24 15:08 Hgb 9.6 g/dl (12.0-16.0) L 07/20/24 15:08 Hct 28.7 % (37.0-47.0) L 07/20/24 15:08 MCV 115.3 fL (80.0-100.0) H 07/20/24 15:08 MCH 38.6 pg (25.0-34.0) H 07/20/24 15:08 MCHC 33.4 g/dL (32.0-36.0) 07/20/24 15:08 RDW Std Deviation 60.3 fL (36.4-46.3) H 07/20/24 15:08 RDW Coeff of Jon 14.0 % (11.5-14.5) 07/20/24 15:08 Plt Count 356 K/uL (130-400) 07/20/24 15:08 MPV 9.7 fL (9.4-12.4) 07/20/24 15:08 Immature Gran % (Auto) 0.5 % 07/20/24 15:08 Neut % (Auto) 63.2 % 07/20/24 15:08 Lymph % (Auto) 24.0 % 07/20/24 15:08 Villalba % (Auto) 11.0 % 07/20/24 15:08 Eos % (Auto) 0.8 % 07/20/24 15:08 Baso % (Auto) 0.5 % 07/20/24 15:08 Neut # (Auto) 5.58 K/uL (1.40-6.50) 07/20/24 15:08 Lymph # (Auto) 2.12 K/uL (1.20-3.40) 07/20/24 15:08 Villalba # (Auto) 0.97 K/uL (0.11-0.59) H 07/20/24 15:08 Eos # (Auto) 0.07 K/uL (0.00-0.50) 07/20/24 15:08 Baso # (Auto) 0.04 K/uL (0.00-0.20) 07/20/24 15:08 Immature Gran # (Auto) 0.04 K/uL (0.01-0.20) 07/20/24 15:08 Absolute Nucleated RBC 0.04 K/uL (0.00-0.12) 07/20/24 15:08 Nucleated RBC % (auto) 0.5 % 07/20/24 15:08 Macrocytosis Present 07/20/24 15:08 PT 10.9 Seconds (9.0-12.0) 07/20/24 15:08 INR 1.0 (0.9-1.1) 07/20/24 15:08 APTT 25 Seconds (21-31) 07/20/24 15:08 PTT Ratio 0.9 07/20/24 15:08 Sodium 136 mmol/L (136-145) 07/20/24 15:08 Potassium 4.0 mmol/L (3.5-5.1) 07/20/24 15:08 Chloride 100 mmol/L (98-107) 07/20/24 15:08 Carbon Dioxide 29 mmol/L (21-32) 07/20/24 15:08 Anion Gap 7 (3-11) 07/20/24 15:08 BUN 19 mg/dl (6-23) 07/20/24 15:08 Creatinine 0.93 mg/dl (0.6-1.2) 07/20/24 15:08 Est Cr Clr Drug Dosing Not Reportable 07/20/24 15:08 eGFR 58.75 07/20/24 15:08 BUN/Creatinine Ratio 20.4 (10-20) H 07/20/24 15:08 Glucose 205 mg/dl (70-99(Fasting)) H 07/20/24 15:08 Calcium 9.4 mg/dl (8.6-10.3) 07/20/24 15:08 Total Bilirubin 0.5 mg/dl (0.2-1.0) 07/20/24 15:08 AST 12 U/L (13-39) L 07/20/24 15:08 ALT 8 U/L (7-52) 07/20/24 15:08 Alkaline Phosphatase 80 U/L (34-104) 07/20/24 15:08 Total Protein 7.2 gm/dl (6.0-8.3) 07/20/24 15:08 Albumin 4.0 gm/dl (3.4-5.0) 07/20/24 15:08 Globulin 3.2 gm/dl (2.5-4.0) 07/20/24 15:08 Albumin/Globulin Ratio 1.3 (0.9-2) 07/20/24 15:08 Impressions KUB X-Ray 07/20/24 15:05 EXAM: Radiograph of the Abdomen 1 View INDICATION: Assess stool burden. TECHNIQUE: Frontal supine view of the abdomen/pelvis. COMPARISON: 04/24/2024 FINDINGS: Limitations: None. Gastrointestinal tract: No interval change large amounts of stool throughout the colon. No obstruction. Organs: Visualized organ shadows appear grossly normal. Bones/joints: Degenerative changes noted in the scoliotic spine. No acute osseous abnormality noted. Soft tissues: No abnormality noted. No radiopaque foreign body noted. IMPRESSION: No interval change large amounts of stool throughout the colon. No obstruction. ACT 112: Negative or not required by law. Electronically signed by Karely Springer 07-20-2024 4:16 PM Code Status & VTE Plan VTE Prophylaxis Plan VTE Prophylaxis will be ordered: Yes (1) Constipation Constipation type: unspecified constipation type Qualified Code(s): K59.00 - Constipation, unspecified
[2024-07-21] MEDS ORDERED: CARBOHYDRATES FOR HYPOGLYCEMIA PO PRN (00:27)
[2024-07-21] MEDS ORDERED: GLUCOSE 40% GEL 15 GM TUBE PO PRN (00:27)
[2024-07-21] MEDS ORDERED: GLUCAGON FOR INJ 1 MG VIAL SQ PRN (00:27)
[2024-07-21] MEDS ORDERED: ACETAMINOPHEN 325 MG TAB PO PRN (00:27)
[2024-07-21] MEDS ORDERED: bisacodyL 5 MG TABEC PO PRN (00:27)
[2024-07-21] MEDS ORDERED: DEXTROSE 50% 50 ML SYRINGE IV PRN (00:27)
[2024-07-21] MEDS ORDERED: MECLIZINE HCL 25 MG TAB PO PRN (00:27)
[2024-07-21] MEDS ORDERED: POLYETHYLENE (MIRALAX) 17 GM PACK PO PRN (00:27)
[2024-07-21] MEDS ORDERED: GLUCOSE 10 TAB/TUBE PO PRN (00:27)
[2024-07-21] MEDS: NYSTATIN POWDER 15GM BTL EXT SCH (02:00)
--- NOTE | 2024-07-21 02:52 | Ultrasound Report ---
EXAM: US venous doppler LE BI CLINICAL HISTORY: lower extremity edema TECHNIQUE: Ultrasound examination of bilateral lower extremity veins was performed in real time and duplex. One or more of the following were performed- spectral analysis, resistive index, waveform analysis, and pulsed Doppler. COMPARISON: 12/10/2023. FINDINGS: Normal phasic, non-pulsatile, and spontaneous flow is noted in bilateral common femoral veins. Common femoral, superficial femoral, and popliteal veins of both lower extremities demonstrate normal compressibility. No sonographic evidence of acute deep vein thrombosis (DVT) is detected in the visualized veins of both lower extremities. Posterior tibial, anterior tibial and peroneal veins demonstrate preserved color flow. No post-compression images are available. Additional Findings: Bilateral Calf soft tissue edema. IMPRESSION: 1. No sonographic evidence of acute DVT was detected in bilateral common femoral, superficial femoral, or popliteal veins, at the time of examination. (Stable) 2. Bilateral calf soft tissue edema. (New finding) Disclaimer: DVT could be missed early in the disease when the clot burden is minimal. For patients with moderate and high pretest probability of DVT and negative ultrasound, the [employer] clinical guidelines recommend testing with a D-dimer assay or repeat ultrasound in 5-7 days. If symptoms worsen, the Society of radiologists in Ultrasound recommends repeating ultrasound even earlier. Electronically signed by Teresa Robert 07-21-2024 02:13 AM
[2024-07-21] MEDS: LEVOTHYROXINE SODIUM 88 MCG TABLET PO SCH (05:27)
[2024-07-21] MEDS: PANTOprazole 40 MG TAB PO SCH (05:28)
[2024-07-21 06:08] LABS: BUN Creatinine Ratio 19.8 (10-20); Calcium 8.5 mg/dl (8.6-10.3); Creatinine Clr Calc Pharmacy 57.1 ml/min; Magnesium 1.9 mg/dl (1.7-2.4); Potassium 3.4 mmol/L (3.5-5.1)
[2024-07-21 06:13] LABS: Basophils # (auto) 0.04 K/uL (0.00-0.20); Basophils % (auto) 0.6 %; Eosinophils # (auto) 0.12 K/uL (0.00-0.50); Eosinophils % (auto) 1.7 %; Hematocrit (blood only) 24.6 % (37.0-47.0); Hemoglobin 8.2 g/dl (12.0-16.0); Immature Granulocytes # (auto) 0.03 K/uL (0.01-0.20); Immature Granulocytes % (auto) 0.4 %; Lymphocytes # (auto) 2.17 K/uL (1.20-3.40); Lymphocytes % (auto) 31.5 %; Mean Corpuscular Hemoglobin 38.5 pg (25.0-34.0); Mean Corpuscular Hgb Conc 33.3 g/dL (32.0-36.0); Mean Corpuscular Volume 115.5 fL (80.0-100.0); Mean Platelet Volume 9.8 fL (9.4-12.4); Monocytes # (auto) 0.76 K/uL (0.11-0.59); Neutrophils # (auto) 3.77 K/uL (1.40-6.50); Neutrophils % (auto) 54.8 %; Nucleated RBC # (auto) 0.03 K/uL (0.00-0.12); Nucleated RBC % (auto) 0.4 %; Platelet Count 285 K/uL (130-400); RDW Coefficient of Variation 13.8 % (11.5-14.5); RDW Standard Deviation 58.2 fL (36.4-46.3); Red Blood Count 2.13 M/uL (4.20-5.40); White Blood Count 6.89 K/ul (4.8-10.8)
[2024-07-21 06:33] LABS: Macrocytosis Present; Polychromasia 1+
[2024-07-21] MEDS: TORSEMIDE 20 MG TAB PO SCH (08:40)
[2024-07-21] MEDS: CYANOCOBALAMIN (B-12) 500 MCG TABLET PO SCH (08:41)
[2024-07-21] MEDS: MAGNESIUM OXIDE 400 MG TAB PO SCH (08:41)
[2024-07-21] MEDS: VIBEGRON 75 MG TAB PO SCH (08:41)
[2024-07-21] MEDS: SPIRONOLACTONE 12.5 MG TAB PO SCH (08:42)
[2024-07-21] MEDS: DICLOFENAC SOD 1% GEL 100 GM TUBE EXT SCH (08:42)
[2024-07-21] MEDS: CHOLECALCIFEROL 25 MCG (1000 UNITS) TAB PO SCH (08:42)
[2024-07-21] MEDS: INSULIN ASPART PER UNIT CHARGE SC SCH (08:46)
[2024-07-21] MEDS: POLYETHYLENE (MIRALAX) 17 GM PACK PO SCH (09:00)
[2024-07-21] MEDS: POTASSIUM CHLORIDE CRTAB 20 MEQ TABCR PO SCH (09:00)
[2024-07-21] MEDS: DOCUSATE SODIUM 100 MG CAP PO SCH (09:00)
[2024-07-21] MEDS: HEPARIN SOD 5,000 UNIT/0.5 ML VIAL SQ SCH (09:06)
--- OUTSIDE RECORDS SUMMARY | 2024-07-21 10:51 | External Medical Summary | Summary of Care ---
Author Name Unknown Organization [facility] Address [address] [place] [address] Phone [phone] Care Team Providers Care [employer] Program Coordinator Name Role Phone Verónica Benavides MD Primary Care Provide r Reason for Visit * Reason Onset Date Comments Hospital Follow-Up Hospital Follow-Up 07/19/2024 Encounter Details Date Type Department Care Team (Latest Contact Info) Description 07/19/2024 12:20 PM [facility] Telemedicine [address] [id number] Verónica Benavides MD [address] [place] [employer], [place] [address] [id number] Hospital discharge follow-up*; ESBL E. 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 ([facility]); Type 2 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 disease, without long-term current use of insulin ([facility]); Biventricular cardiac pacemaker in situ; Anemia, unspecified type; Nonrheumatic aortic valve stenosis; Morbid obesity with BMI of 45.0-49.9, adult ([facility]) Allergies Active Allergy Reactions Criticality Noted Date Comments Adhesive Tape Medium 01/30/2022 Ibuprofen Hives 01/13/2012 Aspirin Hives,Rash 09/15/2000 Sulfamethoxazole-Trimeth oprim Nausea/vomiting,Othe r (Please comment) 10/27/2020 Dizziness Ciprofloxacin Hcl 06/16/2019 Hoarse, dizzy,disoriented Morphine 09/21/2021 Blacked out Penicillins Hives,Rash 09/15/2000 Prednisone 12/30/2017 Weakness/memory changes/blurred vision documented as of this encounter (statuses as of 07/19/2024) Medications OneTouch Verio w/Device Kit Use up to 4 times a day E11.9 1 Kit 08/28/19 21 Active Bisacodyl 5 MG Oral Tablet Delayed Release Take 2 Tablets by mouth daily as needed for Constipation. Do not use for more than one week. Do not cut, crush or chew 40 Tablet 1 01/25/20 23 Active OneTouch Verio In Vitro Strip (Glucose Blood)Indications: Type 2 diabetes mellitus with stage 3 chronic kidney disease, without long-term current use of insulin ([facility]),Type 2 diabetes mellitus with hemoglobin A1c goal of less than 8.0% ([facility]) TEST UP TO FOUR TIMES DAILY 400 Strip 1 05/30/20 23 Active Inversiones.comTouch Delica Plus [id number] ns:Type 2 diabetes mellitus with hemoglobin A1c goal of less than 8.0% ([facility]) Test up to two times daily or as directed by [facility] pharmacist 200 Each 3 07/11/20 23 Active Estrogens Conjugated 0.625 MG/GM Vaginal Cream (Premarin) Administer 0.5 g into the vagina every night at bedtime. Pea-sized amount around vulvar area nightly 30 g 5 07/14/20 23 Active DIURETIC TITRATION PLAN If no improvement on day 3, contact [facility] for possible home visit 1 Each 11/28/19 24 Active Phenazopyridine HCl 200 MG Oral Tablet (Pyridium) Take 1 Tablet by mouth 3 times a day as needed for Pain, Severe. After meals for pain with urination 6 Tablet 04/19/20 24 Active D-Mannose 500 MG Oral Capsule Take 2 Tablets by mouth in the morning and 2 Tablets before bedtime. 2 caps two times daily. 120 Capsule 05/12/20 24 Active Glucosamine Chondr 500 Complex Oral Capsule Take 1 Capsule by mouth in the morning and 1 Capsule before bedtime. 60 Capsule 05/12/20 24 Active Magnesium Oxide 400 MG Oral Tablet Take 1 Tablet by mouth in the morning. 30 Tablet 05/12/20 24 Active Polyethylene Glycol 3350 17 GM/SCOOP Oral Powder (MiraLax) Take 17 g by mouth in the morning. Dissolve one heaping tablespoon in 8 ounces of water or juice.. 255 g 05/12/20 24 Active Probiotic Acidophilus BioBeads Oral Capsule Take 1 Capsule by mouth every evening. Just with antibiotics 30 Capsule 05/12/20 24 Active Sennosides 8.6 MG Oral Tablet Take 2 Tablets by mouth in the morning. 60 Tablet 05/12/20 24 Active Stool Softener 100 MG Oral Tablet (Docusate Sodium) Take 3 Tablets by mouth in the morning and 3 Tablets before bedtime. 120 Tablet 05/12/20 24 Active Vitamin B-12 500 MCG Oral Tablet (vitamin B-12) Take 1 Tablet by mouth in the morning. 30 Tablet 05/12/20 24 Active Vitamin D-3 25 MCG (1000 UT) Oral Capsule Take 1 Capsule by mouth in the morning. 30 Capsule 05/12/20 24 Active Ondansetron HCl 4 MG Oral Tablet Take 1 Tablet by mouth every 6 hours as needed for Nausea. 20 Tablet 05/12/20 24 Active Meclizine HCl 25 MG Oral Tablet (Antivert)Indicati ons:Vertigo Take 1 tablet by mouth 3 times a day as needed for dizziness 30 Tablet 5 05/12/20 24 Active Spironolactone 25 MG Oral Tablet (Aldactone)Indicat ions:Non-ischemic cardiomyopathy (HCC) Take 0.5 Tablets by mouth in the morning. 45 Tablet 3 05/12/20 24 Active Diclofenac Sodium 1 % External Gel (Voltaren) Apply topically to affected area 3 times a day as needed for Pain, Mild. 50 g 3 05/12/20 24 Active Omeprazole 20 MG Oral Capsule Delayed Release (PriLOSEC) Take 1 Capsule by mouth in the morning. One hour before the first meal of the day.. 90 Capsule 1 05/12/20 24 Active Levothyroxine Sodium 88 MCG Oral Tablet (Levoxyl)Indicatio ns:Hypothyroidism, unspecified type Take 1 Tablet by mouth daily first thing in the morning. (at least 30 min prior to breakfast or other meds) 90 Tablet 3 05/12/20 24 Active Metoprolol Succinate ER 25 MG Oral Tablet Extended Release 24 Hour (toPROL XL)Indications:Non -ischemic cardiomyopathy (HCC),Coronary artery disease involving [place]sem[place] ind[place] tribe coronary artery of [place]sem[place] indian tribe heart without angina pectoris,HTN, goal below 140/90 Take 1 Tablet by mouth every evening. 90 Tablet 1 05/12/20 24 Active Mirabegron ER 25 MG Oral Tablet Extended Release 24 Hour (Myrbetriq) Take 1 Tablet by mouth in the morning. 90 Tablet 3 05/12/20 24 Active Colchicine 0.6 MG Oral Tablet Take 1 Tablet by mouth 2 times a day as needed (GOUT). Active Promethazine-DM 6.25-15 MG/5ML Oral Syrup Take by mouth 4 times a day as needed for Cough. Active Nitrofurantoin Monohyd Macro 100 MG Oral Capsule (Macrobid) Take 1 Capsule by mouth every night at bedtime. 05/21/20 24 Active Clotrimazole 1 % External Cream (Lotrimin)Indicati ons:Candidal intertrigo APPLY TO THE AFFECTED AREA(S) TWICE DAILY FOR FOURTEEN DAYS 60 g 2 05/25/20 24 Active Trulicity 0.75 MG/0.5ML Subcutaneous Solution Pen-injector (Dulaglutide) Inject 0.75 mg under the skin once a week. 0.5 mL 3 06/07/20 24 Active Torsemide 20 MG Oral Tablet (Demadex) Take 4 Tablets by mouth in the morning and 4 Tablets in the evening. 06/18/20 24 Active Potassium Chloride Laura ER 20 MEQ Oral Tablet Extended Release Take 1 Tablet by mouth 2 times a day with morning and evening meals. 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 -continue mybetriq -urology appointment coming up in february -continue to monitor Morbid obesity with BMI of 45.0-49.9, adult 12/2020 ESBL E. 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 Assessment & Plan (08/29/2021 1:27 PM EST): [facility] Triage Call: Reviewed last [...] and stage 3a chronic kidney disease 11/28/2020 Assessment & Plan (06/22/2024 10:20 AM EDT): "RED FLAG" HF Symptoms: Increased dyspnea on [...] Continue fluid restriction and low sodium diet Assessment & Plan (01/24/2023 2:16 PM EDT): Current Status: Actively exacerbating Degree of Condition [...] DTP today. Telephone calls through the weekend Assessment & Plan (11/29/2022 12:50 PM EDT): Current Status: Actively exacerbating Degree of Condition Awareness: Demonstrates very good awareness of condition, disease course, and prognosis "RED FLAG" HF Symptoms: o Leg Swelling (Examples: "I can't wear certain socks or shoes", "My pants feel tight") Current Heart Failure Classifications: o With ordinary activity such as doing housework, yard work or shopping ([employer] CLASS II) Diagnostic Review: Recent Labs Units 11/04/22 0647 11/01/22 0618 10/28/22 0628 06/21/22 0942 05/24/22 1052 05/30/21 0620 05/04/21 1308 LEFT VENTRICULAR EJECTION FRACTION % -- -- -- -- -- -- 50 BNP (NT-PRO-BNP) - [facility] pg/mL -- -- -- -- 380* < > -- ESTIMATED GLOMERULAR FILTRATION RATE - [facility] mL/min 49* < > 50* < > 48* < > -- HGB - [facility] g/dL -- -- 10.3* < > -- < > -- < > = values in this interval not displayed. Medication Regimen: o Beta Berta Therapy: Metoprolol Succinate (ER) o MARIO Inhibitor/ARB Therapy: No MARIO/ARB/ARNI secondary to: low BP o Diuretic therapy: Torsemide Aldactone Self - Management Plan o Double dose of Torsemide for 3 days Exacerbation Plan o BMP o Pro-BNP Doing DTP for 3 days. Last day tomorrow. BMP next week. Assessment & Plan (01/14/2022 1:57 PM EDT): [facility] Call: I'm not sure who Dr Dominguez is as I can't find that name anywhere on chart search, however, not treating volume overload is going to be harder on the heart that adjusting her diuretics. I would have her take an additional dose of Torsemide today along with an extra 1/2 tab of Aldactone I would have her evaluated in the home tomorrow 01/14/2022 Assessment & Plan (08/29/2021 1:21 PM EST): [facility] Triage Call: Based on what is described and lack of improvement to initial dose of diuretic, I have a low threshold for a single dose of IV Lasix in the home. 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 Echo 06/10/24 Assessment & Plan (06/22/2024 10:17 AM EDT): Not candidate for TAVR Heart failure, systolic, due to idiopathic cardi omyopathy 06/05/2016 Non-ischemic cardiomyopathy 03/15/2016 Assessment & Plan (11/29/2022 12:51 PM EDT): Continue synthroid Coronary artery disease invo lving [place]sem[place] ind[place] tribe coronary artery of [place] tribe heart without angina pectoris 07/03/2012 Overview (07/03/2012): 60% diagonal per catheterization 03/2012 Assessment & Plan (11/29/2022 12:48 PM EDT): Stable. No angina. -continue Toprol and diuretics. Was on lisinopril. Was taken off due to low BP. Allergy to ASA. Aspirin allergy 03/31/2012 LBBB (left bundle branch block) 03/31/2012 First degree atrioventricular block 03/31/2012 DYSLIPIDEMIA, GOAL LDL BELOW 100 08/03/2009 Overview (08/03/2009): Per Lipid Taxonomy. Hypothyroidism 01/01/2008 Assessment & Plan (01/24/2023 1:57 PM EDT): TSH stable continue synthroid GENERAL OSTEOARTHROSIS 03/03/2003 ACEI/ARB contraindicated Type 2 diabetes mellitus wit h hemoglobin A1c goal of less than 8.0% Overview (12/19/2015): Diabetes Type II, Controlled ICD-10 update of inactive term Assessment & Plan (01/24/2023 1:59 PM EDT): Current Status: Actively exacerbating Degree of Condition Awareness: Demonstrates very good awareness of condition, disease course, and prognosis "RED FLAG" Diabetic symptoms: o none Goal HgbA1c o <7 Diabetic Complications o Vascular (examples: PVD, PAD, CAD, CVA) Medication Regimen o Lifestyle Modification / Monitoring ONLY DM Secondary Prevention o Moderate-High Intensity Statin o Aspirin BS high right now likely due to infection Assessment & Plan (11/29/2022 12:53 PM EDT): Last hgbA1C 7.6 11/01/22 -? No med management -will f/u next visit documented as of this encounter (statuses as of 07/19/2024) Resolved Problems Problem Noted Date Diagnosed Date Resolved Date 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/26/2023 06/17/2024 Transient confusion 01/30/2023 06/17/20 Assessment & Plan (01/30/2023 4:20 PM EDT): Patient has been progressively more confused over the last week despite treatment with Keflex 500 mg three times daily for urinary tract infection. Urine still is cloudy. It is possible that the UTI persists. Will do an infectious workup. -BMP, CBC, UA, stool studies Acute cystitis without hematuria 01/24/2023 03/22/2024 Assessment & Plan (01/24/2023 2:19 PM EDT): Pt symptomatic with weakness, dysuria, some nausea, murky urine -Will increase and extend keflex Bilateral impacted cerumen 11/29/2022 0 05/05/2024 Assessment & Plan (11/29/2022 12:57 PM EDT): Attempted question ears today with minimal success -prescription for Colace liquid. Ten drops to ears bilaterally daily. Allowed to sit for at least 30 minutes. Flush years afterwards with warm water. Constipation 11/29/2022 03/22/2024 Assessment & Plan (01/24/2023 2:21 PM EDT): Improving -continue current regimen Assessment & Plan (11/29/2022 12:56 PM EDT): Continue current bowel regimen -MiraLax 1 cup twice daily, docusate 100 mg twice daily, prunes twice daily, Fleet enema p.r.n., Dulcolax p.r.n. Trochanteric bursitis of right hip 07/10/2021 06/17/2024 [...] weight or BMI > 40) 11/21/2009 05/15/2018 Overview (11/13/2015): Per Obesity Taxonomy ICD-10 update of inactive term Ventral hernia, unspecified, without mention of obstruction or gangrene 10/13/2009 04/30/2018 ACTIVE CASE MANAGEMENT 07/26/200906/11 Overview (07/26/2009): Marcela Dixon RN Arthritis, rheumatoid 06/30/20092011 Overview (06/30/2009): Seronegative Type 2 diabetes mellitus wit h hemoglobin A1c goal of less than 7.0% 06/22/2009 02/21/2010 Overview (12/19/2015): Per Diabetes Taxonomy. 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 OBESITY, UNSPECIFIED 010 Overview (11/21/2009): Per Obesity Taxonomy Diverticulitis of colon 01/2018 Esophageal reflux 04/30/2018 Type 2 diabetes mellitus wit h hemoglobin A1c goal of less than 7.0% 06/22/2009 Overview (12/19/2015): Per Diabetes Taxonomy. ICD-10 update of inactive term Impaired glucose tolerance 0 04/30/2018 documented as of this encounter (statuses as of 07/19/2024) Immunizations Name Administration Dates Next Due COVID-19 mRNA, LNP-s, No Pre serve, 2-Dose Series (Giv[employer]to) 08/29/2021,10/23/2020,10/02/2020 COVID-19, MRNA-LNP, PF, 30 M CG/0.3 mL, 12 YRS AND ABOVE, IM ([facility] 08/04/2023 Covid-19, Mrna, Lnp-s, Pf, B ivalent, [...] ages 0-17 years) Not on file 2024 Comments No Sex and Gender Information Value Date Recorded Sex Assigned at Not on file Legal Sex Female 5:26 AM EST Gender Identity Not on file Sexual Orientation Not on file documented as of this encounter Patient Instructions * Patient Instructions* Verónica Benavides MD - 07/19/2024 12:21 PM EST Taking Medicine Safely Medicine is given to [...] street drugs, herbs, supplements, or even some jooe-bcx-snrmnpo medicines can be harmful. Talk to your [...] to get rid of medicine: Call your [facility] or [facility]'s household trash and recycling service and ask if a drug take-back program is available in your community. Call your local pharmacy and ask the right way to get rid of the medicine. Go to http://www.fda.gov/ForConsumers/ConsumerUpdates/mac537616 to learn how to get rid of [...] brand-name medicine, unless their doctor says otherwise. [facility], [address] [place] [address]. All rights reserved. This information is not [...] best to keep a sense of humor. [facility], [address] [place] [address], [place] [address]. All rights reserved. This information is not [...] and pharmacist about all the prescription and dkoe-tel-eapznkx medicines you take.This includes vitamins and herbal remedies. Tell your doctor and pharmacist if you have any medical conditions or allergies to any medicine or food, or if you are or . Keep a list of all your medicines. Use the sample to the right as a guide for the type of information needed. [address] [place] [address]. All rights reserved. This information is not intended as a substitute for professional medical care. Always follow your healthcare professional's instructions. documented in this encounter Progress Notes * Verónica Benavides MD - 07/19/2024 12:19 PM EST SUBJECTIVE: Regla Castano is a 89 year old female. Chief Complaint Patient presents with Hospital Follow-Up Hospital Follow-Up Recent Admission: Patient was recently admitted to [facility] on 07/04/24. The date of discharge was 07/08/24 and then to [facility] for rehab on 07/08/23 and discharged to home on 07/17/24. Discharge report received and reviewed. HPI: Brief Clinical History Ms. 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 I was in a hospital or clinic location. After connecting through [employer],patient was verified with two unique identifiers. 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 Methods to assure confidentiality were taken. Patient acknowledged consent and understanding of pr ivacy and security of the Telemedicine visit. The patient agreed to participate. Daughters with patient for appointment. Admitted to [facility] 07/04/24-07/08/24 and then [address] [facility] 07/08/24-07/17/24. She was admitted for ESBL E Coli UTI and was treated with 3 days of IV Ertapenem and then 5 days of Macrobid. Patient tends to get weak and confused while on Ertapenem. Confusion improved after stopping the Ertapenem. Daughter feels this regimen of Ertapenem x 3 days and Macrobid x 5 days has worked better than anythingelse ever has. Daughter notes her swelling of her legs was almost gone when she left the hospital and her weight on discharge from [facility] 226 pounds and did not require diureses while there. Hermetabolic encephalopathy resolved prior to discharge. She was discharged to [facility] for rehab. Her weight yesterday was 238.1 and it was 238.9 this morning (up over 12 pounds since hospital discharge). Daughter notes her legs were very swollen after leaving [facility]. She is on a fluid restriction and reports following it. Has not missed her torsemide. Has not moved her bowels since discharge from the hospital and took some laxatives and prunes todayto try and get them moving. Her daughter gave her 2 dulcolax yesterday and today. She also takes Sennosides and Miralax and stool softeners. Daughter feels some of the weight gain may be from constipation as well as CHF and fluid overload. Has not seen cardiology for a long time. Daughter does not feel she can get her to the office for visits. Her pacemaker is checked remotely. Had a UA done at [facility] last Friday and was good and urine culture with now growth. She is back on her Macrobid at bedtime as per urology recommendation for suppression of UTIs. Daughter wondering if she could be treated at home with IV Ertapenem for 3 days and Macrobid orallyfor 5 days. Daughter asking if she should have a port placed because she is a hard stick. Daughter states it was discussed in the hospital if she wants to continue going to the hospital so often for treatment of her UTIs and patient and daughter wish to continue antibiotics when she gets the infections. Patient Active Problem List Diagnosis GENERAL OSTEOARTHROSIS Hypothyroidism DYSLIPIDEMIA, GOAL LDL BELOW 100 Aspirin allergy LBBB (left bundle branch block) First degree atrioventricular block Coronary artery disease involving [place]sem[place] coronary artery of nansem[place] tribe heart without angina pectoris ACEI/ARB contraindicated Type [...] heartfailure and stage 3a chronic kidney disease ([facility] Current Outpatient Medications Medication Sig Dispense Refill [email or web address] w/Device Kit Use up to 4 times a day E11.9 1 Kit 0 Bisacodyl 5 MG Oral Tablet Delayed Release Take 2 Tablets by mouth daily as needed for Constipation. Do not use for more than one week. Do not cut, crush or chew 40 Tablet 1 [email or web address] In Vitro Strip (Glucose Blood) TEST UP TO FOUR TIMES DAILY 400 Strip 1 [employer] Plus [id number] Test up to two times daily or as directed by [facility] pharmacist 200 Each 3 Estrogens Conjugated [...] mouth in the morning. 30 Capsule 0 Ondansetron HCl 4 MG Oral Tablet [...] skin once a week. 0.5 mL 3 Torsemide 20 MG Oral Tablet (Demadex) Take 4 Tablets by mouth in the morning and 4 Tablets in the evening. Potassium Chloride Laura ER 20 MEQ Oral Tablet Extended Release Take 1 Tablet by mouth 2 times a daywith morning and evening meals. 180 Tablet 3 No current facility-administered medications for this visit. Current and discharge medications have been reconciled. Review of patient's allergies indicates: Allergen Reactions Adhesive Tape Advil [Ibuprofen] Hives Aspirin Hives and Rash Bactrim [Sulfamethoxazole-Trimethoprim] Nausea/vomiting and Other (Please comment) Dizziness Ciprofloxacin Hcl Hoarse, dizzy,disoriented Morphine Blacked out Penicillins Hives and Rash Prednisone Weakness/memory changes/blurred vision OBJECTIVE: There were no vitals taken for this visit. Review Of Systems: Skin: pt denies, new or changing moles, pigmentation change, rash, scaling, itching, bruising, lumps or bumps, hair changes, nail changes Eyes: negative Ears/Nose/Throat: pt denies:, tinnitus, vertigo, frequent URI's, sinus trouble Respiratory: pt denies:, cough, sputum, wheezing, and +GARNICA Cardiovascular: +as per HPI Gastrointestinal: +constipation Genitourinary: as per HPI Musculoskeletal: +OA Neurologic: pt denies:, headaches, syncope, and seizures Psychiatric: pt denies:, sleep disturbance, anxiety, nervousness, and depression Hematologic/Lymphatic/Immunologic: +anemia and recurrent UTI Endocrine: + thyroid disorder and + diabetes PHYSICAL EXAM: General: alert, no distress, well nourished, well developed, and obese ASSESSMENT: Hospital discharge follow-up (Primary) - DISCH MED RECON CUR MED LIS ESBL E. 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 Weight is up 12 pounds since discharge from hospital on 07/08/24. Is not currently seeing cardiology and daughter unable to get her to in person visits. Discussed possibility of treating recurrent UTIs with IV antibiotics in the home but not clear if this will be feasible or not. She does get very weak when being treated for UTIs and is not able to stand or transfer during those times. Daughter notes they are looking into getting a lift so that they could care for her when she is too weak to stand. They do have caregivers in the home that could be trained on the lift. Family and caregivers are not able to lift patient. Discussed port but will not pursue this at this time. Follow up as scheduled. I spent a total of 40-54 minutes (exact time 50 mins) minutes on the date of service in preparation, delivery, and documentation of the care provided to Regla Castano excluding any time spent in performance of separately billed services. Verónica Benavides MD documented in this encounter Plan of Treatment Upcoming Encounters Date Type Department Care Team (Late st Contact Info) Description 07/30/2024 2:30 PM EST [facility], [facility] [address] [place] [address] Destiny Schultz, RN [address] [place] [address] 09/16/2024 3:00 PM EST [facility] Visit [facility] [address] [place] [address] Brandt Santacruz PA-C [address] [place] [address] 10/01/2024 1:00 PM EST Telemedicine Family [address] [place] [phone] Kusum Jones CRNP [address] [place] [address] [place] [address] 10/13/2024 11:30 AM EST Telemedicine Urology, [facility] [address] [place] [address] Chandler Pena MD [address] [place] [address] 11/24/2024 1:40 PM EDT Office Visit Dermatology [address] [place] [address] Sheryl Pena PA-C [address] [place] [address] [place] [address] 04/18/2025 1:20 PM EDT Telemedicine Family Medicine [address] [place] [phone] Verónica Benavides MD [address] [place] [address] [place] [address] Health Maintenance Due Date Last Done Comments [...] Additional history exists CKD PHOS USE SMARTSET 33194 05/05/202504/25, 04/30/2024, 04/02/2024, Additional history exists CKD HGB USE SMARTSET 94472 05/26/202505/26, 05/26/2024, 05/07/2024, Additional history exists Pneumococcal [...] stage 3b chronic kidney disease (HCC)- Primary ESBL E. 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) Non-ischemic cardiomyopathy (HCC) Other primary cardiomyopathies Type 2 diabetes mellitus with hemoglobin A1c goal of less than 8.0% (HCC) Gastroesophageal reflux disease without esophagitis Esophageal reflux History of recurrent UTI (urinary tract infection) Personal history of urinary (tract) infection Constipation, unspecified constipation type Skin lesion- Primary Unspecified disorder of skin and subcutaneous tissue LBBB (left bundle branch block) Other left bundle branch block 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 Carrier or suspected carrier of other specified bacterial diseases History of recurrent UTI (urinary tract infection) Personal history of urinary (tract) infection Advanced care planning/counseling discussion Other specified counseling Hospital discharge follow-up- Primary Other follow-up examination ESBL E. 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) Type 2 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 disease, without long-term current use of insulin (HCC) Biventricular cardiac pacemaker in situ Cardiac pacemaker in situ Anemia, unspecified type Nonrheumatic aortic valve stenosis Aortic valve disorders Morbid obesity with BMI of 45.0-49.9, adult (HCC) Morbid obesity documented in this encounter Additional Health Concerns Infection Onset Date Last Indicated Resolved Time ESBL 06/07/2024 06/07/2024 documented as of this encounter Advance Directives Documents on File Type Date Recorded 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
--- OUTSIDE RECORDS SUMMARY | 2024-07-21 10:51 | External Medical Summary | Summary of Care ---
Author Name Unknown Organization [facility] Address [address] [place] [address] Phone [phone] Care Team Providers Care Steam Bone Press Tender Name Role Phone Verónica Benavides MD Primary Care Provide r Encounter Details Date Type Department Care Team ([facility] Contact Info) Description 07/18/2024 1:00 PM EST [facility] [address] [place] [address] [facility], Nurse [facility] [address] [place] [address] Allergies Active Allergy Reactions Criticality Noted Date Comments Adhesive Tape Medium 01/30/2022 Ibuprofen Hives 01/13/2012 Aspirin Hives,Rash 09/15/2000 Sulfamethoxazole-Trimeth oprim Nausea/vomiting,Othe r (Please comment) 10/27/2020 Dizziness Ciprofloxacin Hcl 06/16/2019 Hoarse, dizzy,disoriented Morphine 09/21/2021 Blacked out Penicillins Hives,Rash 09/15/2000 Prednisone 12/30/2017 Weakness/memory changes/blurred vision documented as of this encounter (statuses as of 07/18/2024) Medications OneTouch Verio w/Device Kit Use up to 4 times a day E11.9 1 Kit 08/28/19 21 Active Bisacodyl 5 MG Oral Tablet Delayed Release Take 2 Tablets by mouth daily as needed for Constipation. Do not use for more than one week. Do not cut, crush or chew 40 Tablet 1 01/25/20 Active OneTouch Verio In Vitro Strip (Glucose Blood)Indications: Type 2 diabetes mellitus with stage 3 chronic kidney disease, without long-term current use of insulin ([facility]),Type 2 diabetes mellitus with hemoglobin A1c goal of less than 8.0% ([facility]) TEST UP TO FOUR TIMES DAILY 400 Strip 1 05/30/20 23 Active OneTouch Delica Plus [id number] ns:Type 2 diabetes mellitus with hemoglobin A1c goal of less than 8.0% ([facility]) Test up to two times daily or as directed by [facility] pharmacist 200 Each 3 07/11/20 23 Active Estrogens Conjugated 0.625 MG/GM Vaginal Cream (Premarin) Administer 0.5 g into the vagina every night at bedtime. Pea-sized amount around vulvar area nightly 30 g 5 07/14/20 23 Active DIURETIC TITRATION PLAN If no improvement on day 3, contact [facility] for possible home visit 1 Each 11/28/19 [...] XL)Indications:Non -ischemic cardiomyopathy (HCC),Coronary artery disease involving anvik coronary [...] by mouth every night at bedtime. 05/21/20 Active Clotrimazole 1 % External Cream (Lotrimin)Indicati ons:Candidal intertrigo APPLY TO THE AFFECTED AREA(S) TWICE DAILY FOR FOURTEEN DAYS 60 g 2 05/25/20 Active Trulicity 0.75 MG/0.5ML Subcutaneous Solution Pen-injector (Dulaglutide) Inject 0.75 mg under the skin once a week. 0.5 mL 3 06/07/20 Active Torsemide 20 MG Oral Tablet (Demadex) Take 4 Tablets by mouth in the morning and 4 Tablets in the evening. 06/18/20 Active Potassium Chloride Laura ER 20 MEQ Oral Tablet Extended Release Take 1 Tablet by mouth 2 times a day with morning and evening meals. 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 05/05/2024 Anemia 05/05/2024 Full code status 05/03/2024 Recurrent UTI (urinary tract infection) 12/17/19 Impaired mobility and ADLs 11/12/2022 Ventral hernia [...] Assessment & Plan (08/29/2021 1:27 PM EST): [facility] Triage Call: Reviewed last [...] Assessment & Plan (01/14/2022 1:57 PM EDT): [facility] Call: I'm not sure who Dr [...] Assessment & Plan (08/29/2021 1:21 PM EST): [facility] Triage Call: Based on what is described [...] of anvik heart without angina pectoris 07/03/2012 Overview (07/03/2012): [...] as of this encounter (statuses as of 07/18/2024) Resolved Problems Problem Noted Date Diagnosed Date [...] as of this encounter (statuses as of 07/18/2024) Immunizations Name Administration Dates Next Due COVID-19 mRNA, LNP-s, No Pre serve, 2-Dose Series (Verenium) 08/29/2021,10/23/2020,10/02/2020 COVID-19, MRNA-LNP, PF, 30 M CG/0.3 mL, 12 YRS AND ABOVE, IM (PayPay-Comirnat) 08/04/2023 Covid-19, Mrna, Lnp-s, Pf, B ivalent, 30 Mcg, IM, 12 yrs and above (Verenium) 08/02/2022 Pneumococcal Conjugate Vacc, 13 Valent (Prevnar) [...] 2024 Does the household have a re lar source of income? (Household - for ages [...] Sign Reading Time Taken Comments Blood Pressure 130/60 07/18/2024 1:26 PM EST Pulse 72 07/18/2024 1:26 PM EST Temperature 36.3 C (97.3 F) 07/18/2024 1:26 PM ES T Respiratory Rate 18 07/18/2024 1:26 PM EST Oxygen Saturation 92% 07/18/2024 1:26 PM EST Inhaled Oxygen Concentration - - Weight 108 kg (238 lb 1.6 oz) 07/18/2024 1:26 PM EST Height - - Body Mass Index 44.99 02/26/2023 10:32 AM EDT documented in this encounter Progress Notes * Destiny Schultz RN - 07/18/2024 1:32 PM EST Current Concerns: Patient seen for JERICHO#1- s/p [facility] stay 07/04 r/t UTI, elevated troponin, history of acute on chronicheart failure transferred to [facility] for rehab. Discharged home yesterday. Home with 24 hour caregivers. [facility] referred in on discharge. Discussion with daughter- patient received 3 days of IV ertapenem followed by PO Macrobid x 5 days. Patient failed IV ertapenem in home because of patient becoming more weak and daughter reports- she"Collapses" Long discussion with patient, daughter, caregiver. In the event patient gets another UTI which is highly likely- she will have to repeatedly go back to the hospital for treatment. Discussed possibly getting a uzma lift in home for mobility because patient becomes weak in lower extremities- have BSCavailable. And treat her medically as she was while inpatient- 3 days of Ertapenem followed by oralABT. She will discuss with siblings. If a plan can be developed- will discuss with [facility] team to see if above is appropriate. Patient reports feeling better but continues to be weak. Daughter reports she was not permitted to have compression pumps while in SNF. They did not have recliner available to elevate LE Edema is above baseline- nonpitting. Home scale- weight 238.1- dry weight 232 Currently taking Torsemide 80mg BID Sob above baseline VS wnl Blood sugar 151 Lungs clear bilaterally Voiding without difficulty Bowels- constipated- patient took Miralax today + BS all quads Appetite good Taking fluids- 4 bottles of water daily TT to MD expedition supervisor- Dr. Taylor Let patient transition- keep close follow up-d/t current dose of Torsemide Continue to elevate BLE Compression pumps daily Low na diet Patient has follow up telemed appointment with PCP tomorrow. Physical Exam: Physical Exam Constitutional: Appearance: Normal [...] of Systems: Review of Systems Constitutional: Negative. Respiratory: Positive for shortness of breath. Cardiovascular: Negative. Gastrointestinal: Negative. Genitourinary: Negative. Musculoskeletal: Positive for gait problem. Skin: Negative. Neurological: Positive for weakness. Hematological: Negative. Psychiatric/Behavioral: Negative. Care Plan Goal Progress: Patient will remain free from infection. (Progressing) Start: 07/18/24 Expected End: 11/15/24 Orders Placed: No orders of the defined types were placed in this encounter. Medications Given: Care Gaps: Care Gaps Care gaps closed this contact: Education;Plan of Care (POC) (07/18/24 164) Type of education: Clinical/disease (07/18/241642) Type of plan of care (POC) care gap: Adjustment of plan of care (POC) and/or Integrated Care Plan (ICP) (07/18/241642) documented in this encounter Plan of Treatment Upcoming Encounters Date Type Department Care Team (Late st Contact Info) Description 07/19/2024 12:20 PM EST Telemedicine Family [address] [place] [phone] Verónica Benavides MD [address] [place] [address] [place] [address] 07/19/2024 4:00 PM EST [facility] [address] [place] [address] Destiny Schultz, RN 132 [facility] [place] [address] 07/30/2024 2:30 PM EST [facility] [address] [place] [address] Destiny Schultz, POPPY [address] [place] [address] 09/16/2024 3:00 PM EST [facility], [facility] 132 [facility] [place] [address] Brandt Santacruz PA-C [address] [place] [address] 10/01/2024 1:00 PM EST Telemedicine Family Medicine [address] [place] [phone] Kusum Jones CRNP [address] [place] [address] [place] [address] 10/13/2024 11:30 AM EST Telemedicine Urology, [facility] [place] [address] Chandler Pena MD [address] [place] [address] [place] [address] 11/24/2024 1:40 PM EDT Office Visit Dermatology [address] [place] [address] Sheryl Pena PA-C [address] [place] [address] [place] [address] 04/18/2025 1:20 PM EDT Telemedicine Family Medicine [address] [place] [phone] Verónica Benavides MD [address] [place] [address] [place] [address] Health Maintenance Due Date Last Done Comments [...] Additional history exists CKD PHOS USE SMARTSET 93625 05/05/202504/25, 04/30/2024, 04/02/2024, Additional history exists CKD HGB USE SMARTSET 93784 05/26/202505/26, 05/26/2024, 05/07/2024, Additional history exists Pneumococcal [...] Documents on File Type Date 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
--- OUTSIDE RECORDS SUMMARY | 2024-07-21 10:51 | External Medical Summary | Summary of Care ---
Author Name Unknown Organization [facility] Address [address] [place] [address] Phone [phone] Care Team Providers Care Data Officer Name Role Phone Verónica Benavides MD Primary Care Provide r Reason for Visit * Reason Onset Date Comments Follow Up 07/18/2024 Encounter Details Date Type Department Care Team (Late st Contact Info) Description 07/18/2024 8:30 AM EST Scheduled Telephone [facility] [address] [place] [address] [facility], Nurse [facility] [address] [place] [address] Allergies Active Allergy Reactions Criticality Noted Date [...] 1 05/30/20 23 Active OneTouch Delica Plus [id number] ns:Type 2 diabetes mellitus with hemoglobin A1c goal of less than 8.0% ([facility]) Test up to two times daily or as directed by [facility] pharmacist 200 Each 3 07/11/20 23 Active [...] XL)Indications:Non -ischemic cardiomyopathy (HCC),Coronary artery disease involving burns paiute coronary artery of burns paiute heart without angina pectoris,HTN, goal below 140/90 [...] 110 12/2020 ESBL E. 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 Assessment & Plan (08/29/2021 1:27 PM EST): [facility] Triage Call: Reviewed last C&S - treated [...] Assessment & Plan (01/14/2022 1:57 PM EDT): [facility] Call: I'm not sure [...] Assessment & Plan (08/29/2021 1:21 PM EST): [facility] Triage Call: Based on what [...] Continue synthroid Coronary artery disease invo lving burns paiute coronary artery of burns paiute heart without angina pectoris 07/03/2012 Overview (07/03/2012): [...] mRNA, LNP-s, No Pre serve, 2-Dose Series ([employer]) 08/29/2021,10/23/2020,10/02/2020 COVID-19, MRNA-LNP, PF, 30 M CG/0.3 mL, 12 YRS AND ABOVE, IM (Zeto-Comirnaty) 08/04/2023 Covid-19, Mrna, Lnp-s, Pf, B ivalent, [...] Telephone Encounter - Destiny Schultz RN - 07/18/2024 8:48 AM EST Phone call changed to home visit per request of daughter. documented in this encounter Plan of Treatment Upcoming Encounters Date Type Department Care Team (Late st Contact Info) Description 07/18/2024 1:00 PM EST [facility] [address] [place] [address] [facility], Nurse [facility] [address] [place] [address] 07/19/2024 12:20 PM EST Telemedicine [address] [phone] Verónica Benavides MD [address] [place] [address] [place] [address] 07/19/2024 4:00 PM EST [facility] [address] [place] [address] Destiny Schultz, RN [address] [place] [address] 07/30/2024 2:30 PM EST [facility] [address] [place] [address] Destiny Schultz, RN [address] [place] [address] 09/16/2024 3:00 PM EST [facility] [address] [place] [address] Brandt Santacruz PA-C [address] [place] [address] 10/01/2024 1:00 PM EST Telemedicine [address] [place] [phone] Kusum Jones CRNP [address] [place] [address] [place] [address] 10/13/2024 11:30 AM EST Telemedicine Urology, [address] [place] [address] Chandler Pena MD [address] [place] [address] 11/24/2024 1:40 PM EDT Office Visit Dermatology [address] [place] [address] Sheryl Pena PA-C [address] [place] [address] [place] [address] 04/18/2025 1:20 PM EDT Telemedicine Family Medicine [address] [place] [phone] Verónica Benavides MD [address] [place] [address] [place] [address] Health Maintenance Due Date Last Done Comments [...] Additional history exists CKD PHOS USE SMARTSET 42983 05/05/202504/25, 04/30/2024, 04/02/2024, Additional history exists CKD HGB USE SMARTSET 91935 05/26/202505/26, 05/26/2024, 05/07/2024, Additional history exists Pneumococcal [...] Documents on File Type Date Recorded 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
--- OUTSIDE RECORDS SUMMARY | 2024-07-21 10:52 | External Medical Summary | Summary of Care ---
Author Name Unknown Organization [facility] Address [address] [place] [address] Phone [phone] Care Team Providers Care Night Baker Name Role Phone Verónica Benavides MD Primary Care Provide r Encounter Details Date Type Department Care Team (Late st Contact Info) Description 07/16/2024 Population Health External Data Unspecified Department Allergies Active Allergy Reactions Criticality Noted Date Comments Adhesive Tape Medium 01/30/2022 Ibuprofen Hives 01/13/2012 Aspirin Hives,Rash 09/15/2000 Sulfamethoxazole-Trimeth oprim Nausea/vomiting,Othe r (Please comment) 10/27/2020 Dizziness Ciprofloxacin Hcl 06/16/2019 Hoarse, dizzy,disoriented Morphine 09/21/2021 Blacked out Penicillins Hives,Rash 09/15/2000 Prednisone 12/30/2017 Weakness/memory changes/blurred vision documented as of this encounter (statuses as of 07/16/2024) Medications LaunchPointTouch Verio w/Device Kit Use up to 4 [...] FOUR TIMES DAILY 400 Strip 1 05/30/20 Active OneTouch Delica Plus [id number] ns:Type 2 diabetes mellitus with hemoglobin A1c goal of less than 8.0% ([facility]) Test up to two times daily or as directed by [facility] pharmacist 200 Each 3 07/11/20 Active Estrogens Conjugated 0.625 MG/GM Vaginal Cream (Premarin) Administer 0.5 g into the vagina every night at bedtime. Pea-sized amount around vulvar area nightly 30 g 5 07/14/20 Active DIURETIC TITRATION PLAN If no improvement on day 3, contact [facility] for possible home visit 1 Each 11/28/19 [...] XL)Indications:Non -ischemic cardiomyopathy (HCC),Coronary artery disease involving [place] coronary [...] as of this encounter (statuses as of 07/16/2024) Active Problems Problem Noted Date Diagnosed Date [...] Assessment & Plan (08/29/2021 1:27 PM EST): [facility] Triage [...] Assessment & Plan (01/14/2022 1:57 PM EDT): [facility] Call: I'm not sure who Dr Dominguez [...] Assessment & Plan (08/29/2021 1:21 PM EST): [facility] Triage Call: Based on what is described [...] of [place] heart without angina pectoris 07/03/2012 Overview (07/03/2012): [...] as of this encounter (statuses as of 07/16/2024) Resolved Problems Problem Noted Date Diagnosed Date [...] as of this encounter (statuses as of 07/16/2024) Immunizations Name Administration Dates Next Due COVID-19 mRNA, LNP-s, No Pre serve, 2-Dose Series ([employer]) 08/29/2021,10/23/2020,10/02/2020 COVID-19, MRNA-LNP, PF, 30 M CG/0.3 mL, 12 YRS AND ABOVE, IM ([facility] 08/04/2023 Covid-19, Mrna, Lnp-s, Pf, B ivalent, 30 Mcg, IM, 12 yrs and above ([employer]) 08/02/2022 Pneumococcal Conjugate Vacc, 13 Valent [...] 8:30 AM EST Scheduled Telephone [facility] [place] [address] [place] [id number] [facility] Nurse [place] [address] [place] [address] 07/19/2024 12:20 PM EST Telemedicine Family Medicine [address] [place] [phone] Verónica Benavides MD [address] [place] [address] [place] [address] 07/19/2024 4:00 PM EST Home Visit [facility] [place] [address] [place] [address] Destiny Schultz, RN [address] [place] [address] 07/30/2024 2:30 PM EST Home Visit [facility], [facility] [address] [place] [address] Destiny Schultz, RN [address] [place] [phone] 09/16/2024 3:00 PM EST Home Visit [facility], [facility] [address] [place] [address] Brandt Santacruz PA-C [address] [place] [address] 10/01/2024 1:00 PM EST Telemedicine Family Medicine [address] [place] [phone] [address]usum Jones [address] [place] [address] 10/13/2024 11:30 AM EST Telemedicine Urology, [facility] [address] [place] [address] Chandler Pena MD [address] [place] [phone] 11/24/2024 1:40 PM EDT Office Visit Dermatology [address] [place] [phone] Sheryl Pena PA-C [address] [place] [address] [place] [address] 04/18/2025 1:20 PM EDT Telemedicine Family Medicine [address] [place] [phone] Verónica Benavides MD [address] [place] [address] [place] [id number] Health Maintenance Due Date Last Done Comments [...] Additional history exists CKD PHOS USE SMARTSET 83257 05/05/202504/25, 04/30/2024, 04/02/2024, Additional history exists CKD HGB USE SMARTSET 13473 05/26/202505/26, 05/26/2024, 05/07/2024, Additional history exists Pneumococcal [...] Documents on File Type Date 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
--- NOTE | 2024-07-21 12:09 | XRay Report ---
KUB CLINICAL HISTORY: f/u constipation COMPARISON STUDY: CT of the abdomen May 27, 2020. KUB July 20, 2024. FINDINGS: Pacer leads and cholecystectomy clips are incidentally noted. There is lumbar spine levosco liosis. There is no radiographic evidence for a bowel obstruction. The amount of stool within the rec britt has decreased. Overall, there is a moderate amount of stool within the colon and rectum. IMPRESSION: Moderate amount of stool within the colon and rectum, decreased since prior KUB. ACT 112: Negative or not required by law. Electronically signed by: Bruce Barba M.D. 07/21/2024 12:08 PM
--- NOTE | 2024-07-21 14:33 | Discharge Summary ---
Discharge Summary Date of Service July 21, 2024 Principal Dx & Hospital Course #1 = Principal Diagnosis (1) Constipation: 89-year-old female with past medical history significant for type 2 diabetes, CKD stage III, hypothyroidism, hyperlipidemia, diabetic retinopathy, first- degree atrioventricular block, chronic combined systolic and diastolic CHF, severe aortic stenosis, history of CAD,biventricular cardiac pacemaker, GERD, morbid obesity, recurrent UTI, lymphedema of both lower extremities, benign paroxysmal vertigo, anemia, aspirin allergy, ACEI/ARB contraindicated, ESBL E. 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, ventral hernia without obstruction, ambulatory dysfunction and ambulates with a rollator walker and lives alone at home and has caregivers and daughter lives close by was brought in because of constipation. Patient was admitted in May for acute on chronic systolic and diastolic CHF. Again in hospital from 07/04/2024 to 07/08/2024 for ESBL UTI. Patient was in rehab. Since discharge from rehab she is constipated. Says she did not move her bowels for last about 4 days. Has some abdominal discomfort. In the ER she was given enema and with initial enema she had only small bowel movement when the family did not want to take her back home. With repeat enema she had about 4 bowel movements coupe of them seems moderate-sized. Currently resting comfortably. Hemodynamically stable. Uses oxygen in the nighttime. Denies any headache. She says she is always dizzy. Currently no runny nose or sore throat. No cough. No fevers. No shortness of breath. She says she has chest discomfort where one of the ECG sticker placed. No nausea. Micturating okay. Constipation Moved bowels after 2 enemas in the ER Continue stool softeners Continue monitor Diabetes Sliding scale Will monitor Chronic systolic and diastolic CHF Severe aortic stenosis Continue home diuretics monitor for volume overload Bilateral lower extremity lymphedema will follow Dopplers CKD stage III Creatinine 0.9 Will follow labs History of CAD On beta-abrry Hypothyroidism On Synthyroid GERD On omeprazole Chronic anemia Hemoglobin 9.6 around baseline DVT prophylaxis Heparin subcu Disposition Observation medical floor PT OT in a.m. If stable possible discharge in a.m. Notes For Next Care Provider please ensure continued improvement and/or resolution of constipation Medication Changes From Visit MiraLAX twice daily scheduled Admission HPI Per Admitting Provider 89-year-old female with past medical history significant for type 2 diabetes, CKD stage III, hypothyroidism, hyperlipidemia, diabetic retinopathy, first- degree atrioventricular block, chronic combined systolic and diastolic CHF, severe aortic stenosis, history of CAD,biventricular cardiac pacemaker, GERD, morbid obesity, recurrent UTI, lymphedema of both lower extremities, benign paroxysmal vertigo, anemia, aspirin allergy, ACEI/ARB contraindicated, ESBL E. 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, ventral hernia without obstruction, ambulatory dysfunction and ambulates with a rollator walker and lives alone at home and has caregivers and daughter lives close by was brought in because of constipation. Patient was admitted in May for acute on chronic systolic and diastolic CHF. Again in hospital from 07/04/2024 to 07/08/2024 for ESBL UTI. Patient was in rehab. Since discharge from rehab she is constipated. Says she did not move her bowels for last about 4 days. Has some abdominal discomfort. In the ER she was given enema and with initial enema she had only small bowel movement when the family did not want to take her back home. With repeat enema she had about 4 bowel movements coupe of them seems moderate-sized. Currently resting comfortably. Hemodynamically stable. Uses oxygen in the nighttime. Denies any headache. She says she is always dizzy. Currently no runny nose or sore throat. No cough. No fevers. No shortness of breath. She says she has chest discomfort where one of the ECG sticker placed. No nausea. Micturating okay. Past medical history. As mentioned above Past surgical history. Bilateral total knee replacement. ESWL. Laparoscopic cholecystectomy. Right suture repair of entropion. Total hysterectomy for fibroids. Social history. . No smoking. No alcohol use. No drug use. Family history. Mother had diabetes. [place]. Hypertension. Updated Medication List Medication Instructions Recorded Confirmed Type bisacodyl 5 mg tablet,delayed 10 mg (2 x 5 mg) PO DAILY PRN 07/08/24 07/20/24 Rx release (Dulcolax (bisacodyl)) Constipation #10 tabs cholecalciferol (vitamin D3) 25 1,000 unit PO QAM #30 caps 07/08/24 07/20/24 Rx mcg (1,000 unit) capsule colchicine 0.6 mg tablet 0.6 mg PO BID PRN gout attacks #10 11/14/24 11/26/24 Rx tabs conjugated estrogens 0.625 mg/gram 1 applic vaginal HS #30 grams 07/08/24 07/20/24 Rx vaginal cream (Premarin) cyanocobalamin (vitamin B-12) 1,000 mcg PO QAM #30 tabs 07/08/24 07/20/24 Rx 1,000 mcg tablet (Vitamin B-12) diclofenac sodium 1 % topical gel 2 g topical TID KNEE PAIN #100 07/08/24 07/20/24 Rx grams docusate sodium 100 mg capsule 300 mg (3 x 100 mg) PO BID #100 07/08/24 07/20/24 Rx caps dulaglutide 0.75 mg/0.5 mL 0.75 mg (0.5 mL) subcut WK #2 mL 07/08/24 07/20/24 Rx subcutaneous pen injector (Trulicity) levothyroxine 88 mcg tablet 88 mcg PO DAILYBB #30 tabs 07/08/24 07/20/24 Rx magnesium oxide 400 mg (241.3 mg 400 mg PO DAILY #30 tabs 07/08/24 07/20/24 Rx magnesium) tablet meclizine 25 mg tablet 25 mg PO TID PRN Dizziness #10 tabs 07/08/24 07/20/24 Rx metoprolol succinate 25 mg 25 mg PO QPM #30 tabs 07/08/24 07/20/24 Rx tablet,extended release 24 hr mirabegron 25 mg tablet,extended 25 mg PO QAM 30 days #30 tabs 07/08/24 07/20/24 Rx release 24 hr (Myrbetriq) omeprazole 20 mg capsule,delayed 20 mg PO DAILYBB #30 caps 07/08/24 07/20/24 Rx release ondansetron HCl 4 mg tablet 4 mg PO Q6H PRN NAUSEA/VOMITING 07/08/24 07/20/24 Rx #10 tabs potassium chloride 20 mEq 20 meq PO BID #60 tabs 07/08/24 07/20/24 Rx tablet,extended release(part/cryst) spironolactone 25 mg tablet 12.5 mg (1/2 x 25 mg) PO QAM #30 07/08/24 07/20/24 Rx (Aldactone) tabs torsemide 20 mg tablet 80 mg (4 x 20 mg) PO BID 30 days 07/08/24 07/20/24 Rx #240 tabs polyethylene glycol 3350 17 gram 17 g PO BID #30 ea 07/21/24 Rx oral powder packet (Miralax) Hospital Stay Data Consultations 07/20/24 20:09 ED Decision to Admit Stat Diagnostic Imagining Performed 07/21/24 00:27 US venous doppler LE BI Routine Pending Results Patient Have Any Pending Studies at Discharge: No Discharge Instructions Given to Patient (Per Discharging Provider) Regla, You were admitted with concern for severe constipation. You had enemas done on the day of admission with bowel movements afterwards. The repeat x-ray of your belly showed improvement. Please continue with your bowel regimen at home. We added twice daily MiraLAX to the regimen. Please keep close follow up with your primary care provider after discharge. Please do not hesitate to come back to the emergency room if your symptoms worsen or return. It was a pleasure taking care of you while you were here.
--- NOTE | 2024-07-21 14:55 | Hospitalist Progress Note ---
Date of Service July 21, 2024 Assessment & Plan (1) Constipation: Plan: Pt is an 89-year-old female with past medical history significant for type 2 diabetes, CKD stage III, hypothyroidism, hyperlipidemia, diabetic retinopathy, first-degree atrioventricular block, chronic combined systolic and diastolic CHF, severe aortic stenosis, history of CAD,biventricular cardiac pacemaker, GERD, morbid obesity, recurrent UTI, lymphedema of both lower extremities, b enign paroxysmal vertigo, anemia, aspirin allergy, ACEI/ARB contraindicated, ESBL E. 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, ventral hernia without obstruction, ambulatory dysfunction and ambulates with a rollator walker and lives alone at home and has caregivers and daughter lives close by was brought in because of constipation. Patient was admitted in May for acute on chronic systolic and diastolic CHF. Again in hospital from 07/04/2024 to 07/08/2024 for ESBL UTI. Patient was in rehab and just discharged 4 days ago. Since discharge from rehab she is constipated. Says she did not move her bowels for last 4 days. Has some abdominal discomfort. In the ER she was given enema and with initial enema she had only small bowel movement. With repeat enema she had about 4 bowel movements, reportedly moderat e-sized. Constipation Moved bowels after 2 enemas in the ER KUB on admission noting large amount of stool. no signs of obstruction Repeat KUB noting improvement but still noting moderate amount of stool Continue stool softeners and laxatives Received another round of enemas on 07/21/24, daughter recommending she be monitored overnight given significant fatigue after enemas Continue to monitor Repeat KUB scheduled for AM of 07/22 Diabetes Sliding scale Will monitor Chronic systolic and diastolic CHF Severe aortic stenosis Continue home diuretics monitor for volume overload Bilateral lower extremity lymphedema Doppler noting lower extremity edema No DVT Continue home torsemide and spironolactone CKD stage III Creatinine 0.9 Will follow labs History of CAD On beta-barry Hypothyroidism On Synthroid GERD On omeprazole Chronic anemia Hemoglobin 9.6 around baseline Diet: HH/DMII/Easy to chew DVT prophylaxis: Heparin subcu Dispo: Home with 24hr care once medically stable Admission and Anticipated Discharge Date Admission Date: July 20, 2024 Subjective patient was seen in the morning. Was ambulating from the bathroom to the bed with many stops in between noting that she was tired. difficulty moving her legs, OT was standard to evaluate as well. Noted that she had no further bowel movements since that emergency room Spoke to her daughter multiple times through the day. Initially in the a.m. daughter stated that she wanted to take her home. Later daughter called with results from repeat KUB which noted improvement but still a moderate amount of stool in the colon. Repeat enemas given, daughter noting that she is usually tired after enemas and asking that she stay since she is so tired. Daughter asking for early a.m. discharge. Review of Systems Review of Systems: All systems reviewed & are unremarkable except as noted in Subjective Physical Exam Physical Exam: General: Alert, oriented. No acute distress Skin: No noted rashes or bruises Psych: Appropriate mood and affect HEENT: NC/AT CV: RRR Resp: Breath sounds clear bilaterally, no increased effort of breathing Abdomen: Soft, nontender Extremities: +++ edema in lower extremities bilaterally. Results & Data Results & Data Vital Signs (Past 12 Hours) Vital Signs Temp Pulse BP Pulse Ox O2 Del Method O2 Flow Rate 07/21/24 08:44 68 93 Room Air 07/21/24 07:17 36.4 C L 65 115/67 96 Nasal Cannula 3 Diagnostic Findings KUB X-Ray 07/20/24 15:05 EXAM: Radiograph of the Abdomen 1 View INDICATION: Assess stool burden. TECHNIQUE: Frontal supine view of the abdomen/pelvis. COMPARISON: 04/24/2024 FINDINGS: Limitations: None. Gastrointestinal tract: No interval change large amounts of stool throughout the colon. No obstruction. Organs: Visualized organ shadows appear grossly normal. Bones/joints: Degenerative changes noted in the scoliotic spine. No acute osseous abnormality noted. Soft tissues: No abnormality noted. No radiopaque foreign body noted. IMPRESSION: No interval change large amounts of stool throughout the colon. No obstruction. ACT 112: Negative or not required by law. Electronically signed by Karely Springer 07-20-2024 4:16 PM Venous Doppler Study 07/21/24 00:27 EXAM: US venous doppler LE CLINICAL HISTORY: lower extremity edema TECHNIQUE: Ultrasound examination of bilateral lower extremity veins was performed in real time and duplex. One or more of the following were performed- spectral analysis, resistive index, waveform analysis, and pulsed Doppler. COMPARISON: 12/10/2023. FINDINGS: Normal phasic, non-pulsatile, and spontaneous flow is noted in bilateral common femoral veins. Common femoral, superficial femoral, and popliteal veins of both lower extremities demonstrate normal compressibility. No sonographic evidence of acute deep vein thrombosis (DVT) is detected in the visualized veins of both lower extremities. Posterior tibial, anterior tibial and peroneal veins demonstrate preserved color flow. No post-compression images are available. Additional Findings: Bilateral Calf soft tissue edema. IMPRESSION: 1. No sonographic evidence of acute DVT was detected in bilateral common femoral, superficial femoral, or popliteal veins, at the time of examination. (Stable) 2. Bilateral calf soft tissue edema. (New finding) Disclaimer: DVT could be missed early in the disease when the clot burden is minimal. For patients with moderate and high pretest probability of DVT and negative ultrasound, the [employer] clinical guidelines recommend testing with a D-dimer assay or repeat ultrasound in 5-7 days. If symptoms worsen, the Society of radiologists in Ultrasound recommends repeating ultrasound even earlier. Electronically signed by Teresa Robert 07-21-2024 02:13 AM KUB X-Ray 07/21/24 10:51 KUB CLINICAL HISTORY: f/u constipation COMPARISON STUDY: CT of the abdomen May 27, 2020. KUB July 20, 2024. FINDINGS: Pacer leads and cholecystectomy clips are incidentally noted. There is lumbar spine levoscoliosis. There is no radiographic evidence for a bowel obstruction. The amount of stool within the rectum has decreased. Overall, there is a moderate amount of stool within the colon and rectum. IMPRESSION: Moderate amount of stool within the colon and rectum, decreased since prior KUB. ACT 112: Negative or not required by law. Electronically signed by: Bruce Barba M.D. 07/21/2024 12:08 PM (1) Constipation Constipation type: unspecified constipation type Qualified Code(s): K59.00 - Constipation, unspecified
[2024-07-21] MEDS: METOPROLOL SUCC 25MG EXT REL TAB PO SCH (20:39)
[2024-07-21] MEDS: PREMARIN VAG CRM 14 APPLN/30 GM TUBE PV SCH (21:36)
[2024-07-22 06:47] LABS: Basophils # (auto) 0.04 K/uL (0.00-0.20); Basophils % (auto) 0.7 %; Eosinophils # (auto) 0.12 K/uL (0.00-0.50); Hemoglobin 8.3 g/dl (12.0-16.0); Immature Granulocytes # (auto) 0.02 K/uL (0.01-0.20); Immature Granulocytes % (auto) 0.3 %; Lymphocytes # (auto) 2.37 K/uL (1.20-3.40); Lymphocytes % (auto) 38.5 %; Mean Corpuscular Hemoglobin 38.4 pg (25.0-34.0); Mean Corpuscular Hgb Conc 33.2 g/dL (32.0-36.0); Mean Corpuscular Volume 115.7 fL (80.0-100.0); Monocytes # (auto) 0.74 K/uL (0.11-0.59); Neutrophils # (auto) 2.86 K/uL (1.40-6.50); Neutrophils % (auto) 46.5 %; Nucleated RBC # (auto) 0.03 K/uL (0.00-0.12); Nucleated RBC % (auto) 0.5 %; Platelet Count 308 K/uL (130-400); RDW Standard Deviation 60.4 fL (36.4-46.3); Red Blood Count 2.16 M/uL (4.20-5.40); White Blood Count 6.15 K/ul (4.8-10.8)
[2024-07-22 07:15] LABS: Albumin Globulin Ratio 1.1 (0.9-2); Albumin Level 3.2 gm/dl (3.4-5.0); BUN Creatinine Ratio 18.5 (10-20); Bilirubin,Total 0.5 mg/dl (0.2-1.0); Calcium 8.8 mg/dl (8.6-10.3); Creatinine Clr Calc Pharmacy 57.1 ml/min; Magnesium 2.1 mg/dl (1.7-2.4); Phosphorus 3.1 mg/dl (2.5-4.9); Potassium 3.8 mmol/L (3.5-5.1); Total Protein 6.2 gm/dl (6.0-8.3)
[2024-07-22 07:18] LABS: Macrocytosis Present
[2024-07-22 07:42] VITALS: BP 110/72; PULSE 70; RESP 16; TEMP 97.7; O2SAT 97
--- OUTSIDE RECORDS SUMMARY | 2024-07-22 08:06 | External Medical Summary | Summary of Care ---
Author Name Unknown Organization [facility] Address [address] [place] [address] Phone [phone] Care Team Providers Care Metalsmith Name Role Phone Verónica Benavides MD Primary Care Provide r Reason for Visit * Reason Onset Date Comments [facility]: Acute 07/20/2024 Encounter Details Date Type Department Care Team (Late st Contact Info) Description 07/20/2024 Telephone [facility], [facility] [address] [facility] [place] [address] Silvina Araujo RN [address] [place] [facility] [place] [address] [facility]: Acute Allergies Active Allergy Reactions Criticality Noted Date Comments Adhesive Tape Medium 01/30/2022 Ibuprofen Hives 01/13/2012 Aspirin Hives,Rash 09/15/2000 Sulfamethoxazole-Trimeth oprim Nausea/vomiting,Othe r (Please comment) 10/27/2020 Dizziness Ciprofloxacin Hcl 06/16/2019 Hoarse, dizzy,disoriented Morphine 09/21/2021 Blacked out Penicillins Hives,Rash 09/15/2000 Prednisone 12/30/2017 Weakness/memory changes/blurred vision documented as of this encounter (statuses as of 07/20/2024) Medications OneTouch Verio w/Device Kit Use up [...] 1 05/30/20 23 Active OneTouch Delica Plus [id number] ns:Type 2 diabetes mellitus with hemoglobin A1c goal of less than 8.0% ([facility]) Test up to two times daily or as directed by [facility] pharmacist 200 Each 3 07/11/20 23 Active Estrogens Conjugated 0.625 MG/GM Vaginal Cream (Premarin) Administer 0.5 g into the vagina every night at bedtime. Pea-sized amount around vulvar area nightly 30 g 5 07/14/20 23 Active DIURETIC TITRATION PLAN If no improvement on day 3, contact [facility] for possible home visit 1 [...] XL)Indications:Non -ischemic cardiomyopathy (HCC),Coronary artery disease involving [place] [...] as of this encounter (statuses as of 07/20/2024) Active Problems Problem Noted Date Diagnosed Date [...] 0 12/2020 ESBL E. 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 Assessment & Plan (08/29/2021 1:27 PM EST): [facility] Triage Call: Reviewed last [...] Assessment & Plan (01/14/2022 1:57 PM EDT): [facility] Call: I'm not sure who [...] Assessment & Plan (08/29/2021 1:21 PM EST): [facility] Triage Call: Based on what is [...] of [place] heart without angina pectoris 07/03/2012 Overview (07/03/2012): [...] as of this encounter (statuses as of 07/20/2024) Resolved Problems Problem Noted Date Diagnosed Date [...] 03/07/2020 0 11/28/2020 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/09/2019 03/1 02/2020 Morbid obesity with BMI of 45.0-49.9, adult [...] as of this encounter (statuses as of 07/20/2024) Immunizations Name Administration Dates Next Due COVID-19 mRNA, LNP-s, No Pre serve, 2-Dose Series ([employer]) 08/29/2021,10/23/2020,10/02/2020 COVID-19, MRNA-LNP, PF, 30 M CG/0.3 mL, 12 YRS AND ABOVE, IM (PFIZER-Comirnaty) [...] Telephone Encounter - Silvina Araujo RN - 07/20/2024 10:54 AM EST Communication Note Name: Regla Castano Situation: 89 yo female in [place] Background: HF, CKD, CAD, anemia, recurrent UTI, DM 2 Assessment: Per pt's daughter Josselyn the pt cam home from rehab on Friday. She is extremely constipated. Her rectal area is distended. They do not know when she last had a BM. The pt has pain, sheis very uncomfortable. Josselyn states that the last time this happened the pt required a nurse to give her 5 enemas. The pt's base weight is 232 lbs, today she weighed 239.5 lbs. Per PCP the pt is jo-ann 2 day DTP since yesterday, Torsemide 90 mg BID. The pt does have edema which is shiny on BLE, more SOB than baseline. +nausea, no vomiting. They have been adhering to the bowel regimen: 6 stool softeners with laxative each day, prunes every morning, Miralax in hot cocoa BID, Dulcolax 2 tabs BID. Only teeny tiny bits of stool have been expelled since Friday. Josselyn is requesting for [facility] to send a nurse to assist the pt to remove stool and give enemas. Recommendation: acute Care team availability: TT sent Melissa Engle RNCM- "no where near the area" S Marion off today Kathia Londono off today [facility] didactic instructor Acute Call Date: 07/20/2024 Time: 11:03 AM Name: Regla Castano : 1935 Caller: Josselyn Relationship to pt- daughter Chief Complaint Patient presents with [facility]: Acute HPI: Regla Castano is a 89 year old female whose daughter is calling [facility] Intake to report constipation with rectal and abdominal distention and pain, edema BLE and weight gain. Nursing Assessment: Patient's chief complaint for this call: Abdominal pain Edema Nausea Per pt's daughter Josselyn the pt cam home from rehab on Friday. She is extremely constipated. Her rectal area is distended. Josselyn states that it is like the stool is stuck in her rectum. They do not know when she last had a BM. The pt has pain in her rectum and abdomen, she is very uncomfortable. She has a hemorrhoid which is bleeding. Josselyn states that the last time this happened the pt required a nurse to give her 5 enemas. Josselyn states that she has never given an enema.The pt's base weight is 232 lbs, today she weighed 239.5 lbs. Per PCP the pt is on a 2 day DTP since yesterday, Torsemide 90 mg BID. The pt does have edema which is shiny on BLE- not as shiny today, more SOBthan baseline. +nausea, no vomiting. They have been adhering to the bowel regimen: 6 stool softeners with laxative each day, prunes every morning, Miralax in hot cocoa BID, Dulcolax 2 tabs BID. Only teeny tiny bits of stool have been expelled since Friday. Josselyn is requesting for [facility] to send a nurse to assist the pt to remove stool and give enemas. Pain Has pain Pain level: not quantified Location: rectal, belly Quality of Pain: not stated other than the pt states "it hurts" Does the pain radiate: Unknown Baseline Assessment Able to performing ADLs at baseline (walking, daily tasks, etc.): No Chief Complaint is related to a chronic condition: Yes Chronic Condition: HF and constipation Chief Complaint is a change in baseline: Yes, increased edema to BLE, no BM since Friday Patient prescribed oxygen? No Patient has been ordered DME equipment (assistive devices, respiratory equipment, etc.): Unknown Medication Reconciliation: (See medication list) Received flu shot this season: Unknown Taking medication as ordered: Yes Medications ordered/taking to treat reason for call: Yes, PRN medication(s) bowel regimen as above Heart failure symptoms: Yes Is Diuretic Titration Protocol (DTP) ordered? Yes Describe Diuretic Titration Protocol (DTP): per PCP- Torsemide 90 mg BID x2 days, started yesterday Diuretic Titration Protocol (DTP) activated: Yes, date/time activated as above COPD exacerbation symptoms: No Reinforcement Education: Continue to take all medications as prescribed Continue bowel regimen Hydration to max fluid limitation Elevate BLE Continue daily weights and record Monitor for worsening symptoms to report: weight gain, increased SOB, lethargy, fatigue, weakness, increased abdominal or rectal pain, vomiting, increased edema, rectal bleeding, decreased urinary output Treatment/Plan: (need to report) Level of call: Acute Appointment scheduled for same day: TBD- TT sent to Melissa MEJIA who requested to run through [facility] Provider Name: - Treatment plan until appointment: as above Will send to [facility] Scheduled 24/ 48 hr f/u calls Call back instructions provided to patient. Silvina BURNS, RN [facility] Intake Nurse Navigator Triage documented in this encounter Plan of Treatment Upcoming Encounters Date Type Department Care Team (Late st Contact Info) Description 07/21/2024 10:00 AM EST Scheduled Telephone [facility], [place] [address] [place] [address] [facility] Nurse [place] [address] [facility] [place] [address] 07/23/2024 9:30 AM EST Scheduled Telephone [facility], [facility] [address] [place] [address] [facility], Nurse [place] [address] [address] [place] [address] 07/30/2024 2:30 PM EST Home Visit [facility], [facility] [address] [place] [address] Destiny Schultz RN [address] [facility] [place] [address] 09/16/2024 3:00 PM EST Home Visit [facility], [facility] Brandon Freiregail [place] [address] Brandt Santacruz PA-C [address] [place] [address] 10/01/2024 1:00 PM EST Telemedicine Family Medicine [address] [place] [phone] Kusum Jones [address] [place] [address] 10/13/2024 11:30 AM EST Telemedicine Urology, [facility] [address] [place] [address] Chandler Pena MD [address] [place] [address] 11/24/2024 1:40 PM EDT Office Visit Dermatology [address] [place] [address] Sheryl Pena PA-C [address] [place] [address] [place] [address] 04/18/2025 1:20 PM EDT Telemedicine Family Medicine [address] [place] [phone] Verónica Benavides MD [address] [place] [address] [place] [address] Health Maintenance Due Date Last Done Comments [...] Additional history exists CKD PHOS USE SMARTSET 81121 05/05/202504/25, 04/30/2024, 04/02/2024, Additional history exists CKD HGB USE SMARTSET 05565 05/26/202505/26, 05/26/2024, 05/07/2024, Additional history exists Pneumococcal [...] Documents on File Type Date Recorded 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
--- OUTSIDE RECORDS SUMMARY | 2024-07-22 08:06 | External Medical Summary | Summary of Care ---
Author Name Unknown Organization [facility] Address [address] [place] [address] Phone [phone] Care Team Providers Care Service Administrator Name Role Phone Verónica Benavides MD Primary Care Provide r Reason for Visit * Reason Onset Date Comments [facility]: Acute 07/20/2024 Encounter Details Date Type Department Care Team (Late st Contact Info) Description 07/20/2024 Telephone [facility], [facility] [address] [facility] [place] [address] Silvina Araujo RN [address] [place] [facility] [place] [address] [facility]: Acute Allergies Active Allergy [...] 1 05/30/20 23 Active OneTouch Delica Plus [id number] ns:Type 2 diabetes mellitus with hemoglobin A1c goal of less than 8.0% ([facility]) Test up to two times daily or as directed by [facility] pharmacist 200 Each 3 07/11/20 23 Active Estrogens Conjugated 0.625 MG/GM Vaginal Cream (Premarin) Administer 0.5 g into the vagina every night at bedtime. Pea-sized amount around vulvar area nightly 30 g 5 07/14/20 23 Active DIURETIC TITRATION PLAN If no improvement on day 3, contact [facility] for possible home visit 1 Each 11/28/19 [...] XL)Indications:Non -ischemic cardiomyopathy (HCC),Coronary artery disease involving [place] coronary [...] Assessment & Plan (08/29/2021 1:27 PM EST): [facility] Triage [...] Assessment & Plan (01/14/2022 1:57 PM EDT): [facility] Call: I'm not sure who Dr [...] Assessment & Plan (08/29/2021 1:21 PM EST): [facility] Triage Call: Based on what is described [...] of [place] heart without angina pectoris 07/03/2012 Overview (07/03/2012): [...] mRNA, LNP-s, No Pre serve, 2-Dose Series ([employer]) 08/29/2021,10/23/2020,10/02/2020 COVID-19, MRNA-LNP, PF, 30 M CG/0.3 [...] the money to buy more. Never true 10/16/20 24 Within the past 12 months, t [...] Miscellaneous Notes * Telephone Encounter - Kathe Madrigal CRNP - 07/20/2024 11:46 AM EST [facility] Medical Command Note Recommendations: Patient with recent admission to [facility] 07/04/24 for ESBL E.coli UTI treated with abx complicated by ADHF in the setting of known HFpEF and severe valvular , not a candidate for TAVR. Weight on discharge from hospital 226 lbs. She has gained a significant amount of weight, now 239.5 lbs (up 13.5 lbs). This is like a combination of her severe constipation and heart failure. She has not responded to DTP and unfortunately her diuretics may be exacerbating her constipation. In the setting of severepain, unknown last bowel movement with rectal pressure, acutely exacerbated heart failure, and no home visit availability today, I recommend she is evaluated in the ED. I would not recommend aggressive diuretics as an outpatient due to her severe . She will require disimpaction in the ED and cautious diuresis while monitored in the hospital. Orders: No orders of the defined types were placed in this encounter. 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 GASTON Mccartney Remote Medical Command - [facility] 07/20/2024 Scheduled appointments in the next 60 days: Future Appointments-next 60 days Date/Time Provider Specialty Dept Phone 07/21/2024 10:[address] [facility] Nurse [facility] [phone] 07/23/2024 9:[address] [facility] [phone] 07/30/2024 2:30 PM Destiny Schultz RN [facility] [phone] 09/16/2024 3:00 PM Brandt Santacruz PA-C [facility] [phone] 10/01/2024 1:00 PM Kusum Jones CRNP Family Medicine [phone] 10/13/2024 11:30 AM Chandler Pena MD Urology [phone] 11/24/2024 1:40 PM (Arrive by 1:25 PM) Sheryl Pena PA-C Dermatology [phone] 04/18/2025 1:20 PM Verónica Benavides MD Family Medicine [phone] The above documentation was completed using the voice recognition dictation program Fluency Direct.As such, there may be misspellings, word substitutions, or other variations that should not change the essence of the clinical content of this encounter note. If there are questions, concerns or needfor further clarification, please contact me. Thank you. * Telephone Encounter - Silvina Araujo RN - 07/20/2024 10:54 AM EST Communication Note Name: Regla Castano Situation: 89 yo female in [place] Background: HF, CKD, CAD, anemia, recurrent UTI, [...] expelled since Friday. Josselyn is requesting for [facility] to send a nurse to assist the pt to remove stool and give enemas. Recommendation: acute HV Care team availability: TT sent Melissa MEJIA- "no where near the area" S Marion off today L Bry off today [facility] pipe washer Acute Call Date: 07/20/2024 Time: 11:03 AM Name: Regla Castano : 1935 Caller: Josselyn Relationship to pt- daughter Chief Complaint Patient presents with [facility]: Acute HPI: Regla Castano is a 89 year old female whose daughter is calling [facility] to report constipation with [...] expelled since Friday. Josselyn is requesting for [facility] to send a nurse to assist [...] Melissa MEJIA who requested to run through [facility] Provider Name: - Treatment plan until appointment: as above Will send to [facility] Scheduled 24/ 48 hr f/u calls Call back instructions provided to patient. Silvina BURNS, RN [facility] Intake Nurse Navigator Triage documented in this encounter Plan of Treatment Upcoming Encounters Date Type Department Care Team (Late st Contact Info) Description 07/21/2024 10:00 AM EST Scheduled Telephone [facility], [address] [place] [address] [facility] Nurse [address] [place] [address] 07/23/2024 9:30 AM EST Scheduled Telephone [facility], [address] [place] [address] [facility] Nurse [address] [place] [address] 07/30/2024 2:30 PM EST [facility] Visit [facility] [address] [place] [address] Destiny Schultz RN [address] [place] [address] [place] [address] 09/16/2024 3:00 PM EST Home Visit [facility], [facility] [address] [place] [address] Brandt Santacruz PA-C [address] [place] [address] 10/01/2024 1:00 PM EST Telemedicine Family Medicine [address] [place] [phone] Kusum Jones CRNP [address] [place] [address] [place] [address] 10/13/2024 11:30 AM EST [facility]medicine [facility], [facility] [place] [address] Chandler Pena MD [address] [facility] [place] [address] 11/24/2024 1:40 PM EDT Office Visit Dermatology [address] [place] [address] Sheryl Pena PA-C [address] [place] [address] [place] [address] 04/18/2025 1:20 PM EDT Telemedicine Family Medicine [address] [place] [phone] Verónica Benavides MD [address] [place] [address] [place] [address] Health Maintenance Due Date Last Done Comments [...] Additional history exists CKD PHOS USE SMARTSET [id number] 05/05/202504/25, 04/30/2024, 04/02/2024, Additional history exists CKD HGB USE SMARTSET 18456 05/26/202505/26, 05/26/2024, 05/07/2024, Additional history exists Pneumococcal [...] Documents on File Type Date Recorded Patient Community Service Specialist Expl anation Advance Directives and Living Will 08/10/2021 ADVANCE DIRECTIVE / LIVING WILL LIVING WILL Healthcare Agents on File Name Relationship [facility] Josselyn Judd Adult Child Health Care Power of Attor nathalie Care Teams Service Administrator Relationship Specialty Start Date End Date Verónica Benavides MD [address] [place] [address] [place] [phone] PCP - General Family Medicine 09/16/14 documented as of this encounter
--- OUTSIDE RECORDS SUMMARY | 2024-07-22 08:06 | External Medical Summary | Summary of Care ---
Author Name Unknown Organization [facility] Address [address] [place] [address] Phone [phone] Care Team Providers Care Heavy Equipment Technician Name Role Phone Verónica Benavides MD Primary Care Provide r Reason for Visit * Reason Onset Date Comments [facility]: Acute 07/20/2024 Encounter Details Date Type Department Care Team (Late st Contact Info) Description 07/20/2024 Telephone [facility], [facility] [address] [facility] [place] [address] Silvina Araujo RN [address] [facility] [place] [address] [facility]: Acute Allergies Active Allergy [...] 1 05/30/20 23 Active OneTouch Delica Plus [id number] ns:Type 2 diabetes mellitus with hemoglobin A1c goal of less than 8.0% ([facility]) Test up to two times daily or as directed by [facility] pharmacist 200 Each 3 07/11/20 [...] XL)Indications:Non -ischemic cardiomyopathy (HCC),Coronary artery disease involving [place] coronary artery of [place] heart without angina pectoris,HTN, goal below 140/90 [...] Assessment & Plan (08/29/2021 1:27 PM EST): [facility] Triage Call: Reviewed last [...] Assessment & Plan (01/14/2022 1:57 PM EDT): [facility] Call: I'm not sure [...] Assessment & Plan (08/29/2021 1:21 PM EST): [facility] Triage Call: Based on what [...] Continue synthroid Coronary artery disease invo lving [place] coronary artery of [place] heart without angina pectoris 07/03/2012 Overview (07/03/2012): [...] mRNA, LNP-s, No Pre serve, 2-Dose Series ([employer]) 08/29/2021,10/23/2020,10/02/2020 COVID-19, MRNA-LNP, PF, 30 M CG/0.3 [...] Encounter - Silvina Araujo RN - 07/20/2024 12:05 PM EST Received message from Shaun FELDMAN. Outgoing call to Josselyn and notified her of recommendation to take the pt to the ED given her status with HF and severe constipation. Josselyn verbalized understanding of same and will speak with her siblings and the pt and take her to the ED. Will send to the pt's [facility] care team. 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 GASTON Mccartney [facility] - [facility] 07/20/2024 Scheduled appointments in the next 60 days: Future Appointments-next 60 days Date/Time Provider Specialty Dept Phone 07/21/2024 10:00 AM [facility] Nurse [facility] Ian [facility] [place] [phone] 07/23/2024 9:30 AM [facility] Nurse [facility] Ian [facility]er [facility] [place] [phone] 07/30/2024 2:30 PM Destiny Schultz RN [facility] [phone] 09/16/2024 3:00 PM Brandt Santacruz PA-C [facility] [phone] 10/01/2024 1:00 PM Kusum Jones CRNP [facility] [phone] 10/13/2024 11:30 AM Chandler Pena MD Urology [phone] 11/24/2024 1:40 PM (Arrive by 1:25 PM) Sheryl Pena PA-C Dermatology [phone] 04/18/2025 1:20 PM Verónica Benavides MD Family Medicine [phone] The above documentation was completed using the [...] Regla Castano Situation: 89 [facility] Background: HF, CKD, CAD, anemia, recurrent UTI, [...] expelled since Friday. Josselyn is requesting for [facility] to send a nurse to assist the pt to remove stool and give enemas. Recommendation: acute Care team availability: TT sent Melissa Engle RNCM- "no where near the area" S [place] off today Kathia Londono off today [facility] leather coverer Acute Call Date: 07/20/2024 Time: 11:03 AM [...] expelled since Friday. Josselyn is requesting for [facility] to send a nurse to assist [...] Melissa MEJIA who requested to run through [facility] Provider Name: - Treatment plan until appointment: as above Will send to [facility] Scheduled 24/ 48 hr f/u calls Call back instructions provided to patient. Silvina BURNS, RN [facility] Intake Nurse Navigator Triage documented in this encounter Plan of Treatment Upcoming Encounters Date Type Department Care Team (Late st Contact Info) Description 07/21/2024 10:00 AM EST Scheduled Telephone [facility], [facility] [address] [facility] [place] [address] [facility], Nurse [address] [place] [address] 07/23/2024 9:30 AM EST Scheduled Telephone [facility], [facility] [address] [facility] [address] [place] [address] [facility], Nurse [facility] [address] [place] [address] 07/30/2024 2:30 PM EST Home Visit [facility], [facility] [address] [facility] [place] [address] Destiny Schultz, POPPY [address] [facility] [place] [address] 09/16/2024 3:00 PM EST Home Visit [facility], [facility] [address] [facility] [place] [address] Brandt Santacruz PA-C [address] [facility] [place] [address] 10/01/2024 1:00 PM EST Telemedicine Family Medicine [address] [place] [phone] Kusum Jones [address] [place] [address] 10/13/2024 11:30 AM EST Telemedicine Urology, [facility] [address] [facility] [place] [address] Chandler Pena MD [address] [place] [address] 11/24/2024 1:40 PM EDT Office Visit Dermatology [address] [place] [address] Sheryl Pena PA-C [address] [place] [address] [place] [address] 04/18/2025 1:20 PM EDT Telemedicine Family Medicine [address] [place] [phone] Verónica Benavides MD [address] [place] [address] [place] [address] Health Maintenance Due Date Last Done Comments [...] Additional history exists CKD PHOS USE SMARTSET 83208 05/05/202504/25, 04/30/2024, 04/02/2024, Additional history exists CKD HGB USE SMARTSET 14617 05/26/202505/26, 05/26/2024, 05/07/2024, Additional history exists Pneumococcal [...] Documents on File Type Date Recorded Patient Dental Prosthetist Expl anation Advance Directives and Living Will 08/10/2021 ADVANCE DIRECTIVE / LIVING WILL LIVING WILL Healthcare Agents on File Name Relationship Healthcare Agent Relationshi p Communication Josselyn Judd Adult Child Health Care Power of Attor nathalie Care Teams Heavy Equipment Technician Relationship Specialty Start Date End Date Verónica Benavides MD [address] [place] [address] [place] [address] PCP - General Family Medicine 09/16/14 documented as of this encounter
--- NOTE | 2024-07-22 09:30 | XRay Report ---
EXAM: Radiograph of the Abdomen 1 View INDICATION: Post enema. TECHNIQUE: Frontal supine view of the abdomen/pelvis. Image obtained at 9:08 AM. COMPARISON: 07/20/2024 FINDINGS: Limitations: None. Gastrointestinal tract: Significantly reduced amounts of colonic stool. Air noted throughout prominent bowel loops in a nonobstructive pattern. Organs: Visualized organ shadows appear grossly normal. Bones/joints: Degenerative changes noted in the scoliotic spine. No acute osseous abnormality noted. Soft tissues: No abnormality noted. No radiopaque foreign body noted. IMPRESSION: 1. Significantly reduced formed stool throughout the colon. 2. Nonobstructive intestinal gas pattern noted. ACT 112: Negative or not required by law. Electronically signed by Karely Springer 07-22-2024 09:29 AM
--- NOTE | 2024-07-22 10:30 | Discharge Summary ---
Discharge Summary Date of Service July 22, 2024 Principal Dx & Hospital Course #1 = Principal Diagnosis (1) Constipation: Plan Pt is an 89-year-old female with past medical history significant for type 2 diabetes, CKD stage III, hypothyroidism, hyperlipidemia, diabetic retinopathy, first-degree atrioventricular block, chronic combined systolic and diastolic CHF, severe aortic stenosis, history of CAD,biventricular cardiac pacemaker, GERD, morbid obesity, recurrent UTI, lymphedema of both lower extremities, benign paroxysmal vertigo, anemia, aspirin allergy, ACEI/ARB contraindicated, ESBL E. 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, ventral hernia without obstruction, ambulatory dysfunction and ambulates with a rollator walker and lives alone at home and has caregivers and daughter lives close by was brought in because of constipation. Patient was admitted in May for acute on chronic systolic and diastolic CHF. Again in hospital from 07/04/2024 to 07/08/2024 for ESBL UTI. Patient was in rehab and just discharged 4 days ago. Since discharge from rehab she is constipated. Says she did not move her bowels for last 4 days. Has some abdominal discomfort. In the ER she was given enema and with initial enema she had only small bowel movement. With repeat enema she had about 4 bowel movements, reportedly moderate-sized. Constipation Moved bowels after 2 enemas in the ER KUB on admission noting large amount of stool. No signs of obstruction Repeat KUB on 07/21/24 noting improvement but still noting moderate amount of stool Continued stool softeners and laxatives Received another round of enemas on 07/21/24, daughter recommending she be monitored overnight given significant fatigue after enemas On day of discharge, repeat KUB noting significant reduction in amount of stool. Pt discharged with plan to continue her home bowel regimen and follow up with her primary care provider. Diabetes Sliding scale while hospitalized Resume home regimen with pcp followup after discharge Chronic systolic and diastolic CHF Severe aortic stenosis Continue home diuretics monitor for volume overload PCP f/u Bilateral lower extremity lymphedema Doppler noting lower extremity edema No DVT Continue home torsemide and spironolactone PCP f/u CKD stage III Creatinine 0.9 Stable, pcp f/u History of CAD On beta-barry Hypothyroidism On Synthroid GERD On omeprazole Chronic anemia Hemoglobin 9.6 around baseline PCP follow up Notes For Next Care Provider Please ensure regular bowel movements Medication Changes From Visit None Admission HPI Per Admitting Provider 89-year-old female with past medical history significant for type 2 diabetes, CKD stage III, hypothyroidism, hyperlipidemia, diabetic retinopathy, first- degree atrioventricular block, chronic combined systolic and diastolic CHF, severe aortic stenosis, history of CAD,biventricular cardiac pacemaker, GERD, morbid obesity, recurrent UTI, lymphedema of both lower extremities, benign paroxysmal vertigo, anemia, aspirin allergy, ACEI/ARB contraindicated, ESBL E. 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, ventral hernia without obstruction, ambulatory dysfunction and ambulates with a rollator walker and lives alone at home and has caregivers and daughter lives close by was brought in because of constipation. Patient was admitted in May for acute on chronic systolic and diastolic CHF. Again in hospital from 07/04/2024 to 07/08/2024 for ESBL UTI. Patient was in rehab. Since discharge from rehab she is constipated. Says she did not move her bowels for last about 4 days. Has some abdominal discomfort. In the ER she was given enema and with initial enema she had only small bowel movement when the family did not want to take her back home. With repeat enema she had about 4 bowel movements coupe of them seems moderate-sized. Currently resting comfortably. Hemodynamically stable. Uses oxygen in the nighttime. Denies any headache. She says she is always dizzy. Currently no runny nose or sore throat. No cough. No fevers. No shortness of breath. She says she has chest discomfort where one of the ECG sticker placed. No nausea. Micturating okay. Past medical history. As mentioned above Past surgical history. Bilateral total knee replacement. ESWL. Laparoscopic cholecystectomy. Right suture repair of entropion. Total hysterectomy for fibroids. Social history. . No smoking. No alcohol use. No drug use. Family history. Mother had diabetes. DC. Hypertension. Admission Exam Per Admitting Provider General- Not in distress. Head- atraumatic Eyes- PERRL. ENT- oropharynx clear Neck- supple, no JVD. Lungs- clear to auscultation no wheezing or crackles. Heart- regular rhythm; ESM murmur, no gallop Abdomen- normal bowel sounds, soft, nontender, ventral hernia seen Extremities- b/l lower extremity lymphedema seen, no erythema seen Neuro- alert, oriented PERRL, no facial palsy; no dysarthria; moves extremities Discharge Exam General: Alert, oriented. No acute distress Skin: No noted rashes or bruises Psych: Appropriate mood and affect HEENT: NC/AT CV: RRR, +murmur Resp: Breath sounds clear bilaterally, no increased effort of breathing Abdomen: Soft, nontender Extremities: +++ edema in lower extremities bilaterally. Updated Medication List Medication Instructions Recorded Confirmed Type bisacodyl 5 mg tablet,delayed 10 mg (2 x 5 mg) PO DAILY PRN 07/08/24 07/20/24 Rx release (Dulcolax (bisacodyl)) Constipation #10 tabs cholecalciferol (vitamin D3) 25 1,000 unit PO QAM #30 caps 07/08/24 07/20/24 Rx mcg (1,000 unit) capsule colchicine 0.6 mg tablet 0.6 mg PO BID PRN gout attacks #10 07/08/24 07/20/24 Rx tabs conjugated estrogens 0.625 mg/gram 1 applic vaginal HS #30 grams 07/08/24 07/20/24 Rx vaginal cream (Premarin) cyanocobalamin (vitamin B-12) 1,000 mcg PO QAM #30 tabs 07/08/24 07/20/24 Rx 1,000 mcg tablet (Vitamin B-12) diclofenac sodium 1 % topical gel 2 g topical TID KNEE PAIN #100 07/08/24 07/20/24 Rx grams docusate sodium 100 mg capsule 300 mg (3 x 100 mg) PO BID #100 07/08/24 07/20/24 Rx caps dulaglutide 0.75 mg/0.5 mL 0.75 mg (0.5 mL) subcut WK #2 mL 07/08/24 07/20/24 Rx subcutaneous pen injector (Trulicity) levothyroxine 88 mcg tablet 88 mcg PO DAILYBB #30 tabs 07/08/24 07/20/24 Rx magnesium oxide 400 mg (241.3 mg 400 mg PO DAILY #30 tabs 07/08/24 07/20/24 Rx magnesium) tablet meclizine 25 mg tablet 25 mg PO TID PRN Dizziness #10 tabs 07/08/24 07/20/24 Rx metoprolol succinate 25 mg 25 mg PO QPM #30 tabs 07/08/24 07/20/24 Rx tablet,extended release 24 hr mirabegron 25 mg tablet,extended 25 mg PO QAM 30 days #30 tabs 07/08/24 07/20/24 Rx release 24 hr (Myrbetriq) omeprazole 20 mg capsule,delayed 20 mg PO DAILYBB #30 caps 07/08/24 07/20/24 Rx release ondansetron HCl 4 mg tablet 4 mg PO Q6H PRN NAUSEA/VOMITING 07/08/24 07/20/24 Rx #10 tabs potassium chloride 20 mEq 20 meq PO BID #60 tabs 07/08/24 07/20/24 Rx tablet,extended release(part/cryst) spironolactone 25 mg tablet 12.5 mg (1/2 x 25 mg) PO QAM #30 07/08/24 07/20/24 Rx (Aldactone) tabs torsemide 20 mg tablet 80 mg (4 x 20 mg) PO BID 30 days 07/08/24 07/20/24 Rx #240 tabs Hospital Stay Data Consultations 07/20/24 20:09 ED Decision to Admit Stat Diagnostic Imagining Performed 07/21/24 00:27 US venous doppler LE BI Routine KUB X-Ray 07/20/24 15:05 EXAM: Radiograph of the Abdomen 1 View INDICATION: Assess stool burden. TECHNIQUE: Frontal supine view of the abdomen/pelvis. COMPARISON: 04/24/2024 FINDINGS: Limitations: None. Gastrointestinal tract: No interval change large amounts of stool throughout the colon. No obstruction. Organs: Visualized organ shadows appear grossly normal. Bones/joints: Degenerative changes noted in the scoliotic spine. No acute osseous abnormality noted. Soft tissues: No abnormality noted. No radiopaque foreign body noted. IMPRESSION: No interval change large amounts of stool throughout the colon. No obstruction. ACT 112: Negative or not required by law. Electronically signed by Karely Springer 07-20-2024 4:16 PM Venous Doppler Study 07/21/24 00:27 EXAM: US venous doppler LE BI CLINICAL HISTORY: lower extremity edema TECHNIQUE: Ultrasound examination of bilateral lower extremity veins was performed in real time and duplex. One or more of the following were performed- spectral analysis, resistive index, waveform analysis, and pulsed Doppler. COMPARISON: 12/10/2023. FINDINGS: Normal phasic, non-pulsatile, and spontaneous flow is noted in bilateral common femoral veins. Common femoral, superficial femoral, and popliteal veins of both lower extremities demonstrate normal compressibility. No sonographic evidence of acute deep vein thrombosis (DVT) is detected in the visualized veins of both lower extremities. Posterior tibial, anterior tibial and peroneal veins demonstrate preserved color flow. No post-compression images are available. Additional Findings: Bilateral Calf soft tissue edema. IMPRESSION: 1. No sonographic evidence of acute DVT was detected in bilateral common femoral, superficial femoral, or popliteal veins, at the time of examination. (Stable) 2. Bilateral calf soft tissue edema. (New finding) Disclaimer: DVT could be missed early in the disease when the clot burden is minimal. For patients with moderate and high pretest probability of DVT and negative ultrasound, the [employer] clinical guidelines recommend testing with a D-dimer assay or repeat ultrasound in 5-7 days. If symptoms worsen, the Society of radiologists in Ultrasound recommends repeating ultrasound even earlier. Electronically signed by Teresa Robert 07-21-2024 02:13 AM KUB X-Ray 07/21/24 10:51 KUB CLINICAL HISTORY: f/u constipation COMPARISON STUDY: CT of the abdomen May 27, 2020. KUB July 20, 2024. FINDINGS: Pacer leads and cholecystectomy clips are incidentally noted. There is lumbar spine levoscoliosis. There is no radiographic evidence for a bowel obstruction. The amount of stool within the rectum has decreased. Overall, there is a moderate amount of stool within the colon and rectum. IMPRESSION: Moderate amount of stool within the colon and rectum, decreased since prior KUB. ACT 112: Negative or not required by law. Electronically signed by: Bruce Barba M.D. 07/21/2024 12:08 PM KUB X-Ray 07/22/24 07:00 EXAM: Radiograph of the Abdomen 1 View INDICATION: Post enema. TECHNIQUE: Frontal supine view of the abdomen/pelvis. Image obtained at 9:08 AM. COMPARISON: 07/20/2024 FINDINGS: Limitations: None. Gastrointestinal tract: Significantly reduced amounts of colonic stool. Air noted throughout prominent bowel loops in a nonobstructive pattern. Organs: Visualized organ shadows appear grossly normal. Bones/joints: Degenerative changes noted in the scoliotic spine. No acute osseous abnormality noted. Soft tissues: No abnormality noted. No radiopaque foreign body noted. IMPRESSION: 1. Significantly reduced formed stool throughout the colon. 2. Nonobstructive intestinal gas pattern noted. ACT 112: Negative or not required by law. Electronically signed by Karely Springer 07-22-2024 09:29 AM Pending Results Patient Have Any Pending Studies at Discharge: No Discharge Instructions Given to Patient (Per Discharging Provider) Regla, You were admitted with concern for severe constipation. You had enemas done on the day of admission with bowel movements afterwards. The repeat x-ray of your belly showed improvement. Please continue with your bowel regimen at home. Please keep close follow up with your primary care provider after discharge. Please do not hesitate to come back to the emergency room if your symptoms worsen or return. It was a pleasure taking care of you while you were here. Total Time Total Time Spent Total Time Spent (In Minutes): 45
--- OUTSIDE RECORDS SUMMARY | 2024-07-22 13:47 | External Medical Summary | Summary of Care ---
Author Name Unknown Organization [facility] Address [address] [place] [address] Phone [phone] Care Team Providers Care Painting Department Supervisor Name Role Phone Verónica Benavides MD Primary Care Provide r Reason for Visit * Reason Onset Date Comments [facility]: Maintenance 07/21/2024 Encounter Details Date Type Department Care Team (Late st Contact Info) Description 07/21/2024 10:00 AM EST Scheduled Telephone [facility], [facility] [address] [place] [address] [facility], Nurse [facility] [address] [place] [address] Allergies Active Allergy Reactions Criticality Noted Date Comments Adhesive Tape Medium 01/30/2022 Ibuprofen Hives 01/13/2012 Aspirin Hives,Rash 09/15/2000 Sulfamethoxazole-Trimeth oprim Nausea/vomiting,Othe r (Please comment) 10/27/2020 Dizziness Ciprofloxacin Hcl 06/16/2019 Hoarse, dizzy,disoriented Morphine 09/21/2021 Blacked out Penicillins Hives,Rash 09/15/2000 Prednisone 12/30/2017 Weakness/memory changes/blurred vision documented as of this encounter (statuses as of 07/21/2024) Medications Danya meléndez/Device Kit Use up to 4 times a [...] 1 05/30/20 23 Active OneTouch Delica Plus [id number] ns:Type 2 diabetes mellitus with hemoglobin A1c goal of less than 8.0% ([facility]) Test up to two times daily or as directed by [facility] pharmacist 200 Each 3 07/11/20 23 Active Estrogens Conjugated 0.625 MG/GM Vaginal Cream (Premarin) Administer 0.5 g into the vagina every night at bedtime. Pea-sized amount around vulvar area nightly 30 g 5 07/14/20 23 Active DIURETIC TITRATION PLAN If no improvement on day 3, contact [facility] for possible home visit 1 Each 11/28/19 [...] cardiomyopathy (HCC),Coronary artery disease involving [place] coronary artery of [place] heart without angina pectoris,HTN, goal below 140/90 [...] as of this encounter (statuses as of 07/21/2024) Active Problems Problem Noted Date Diagnosed Date [...] 11/0 12/2020 ESBL E. 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 Assessment & Plan (08/29/2021 1:27 PM EST): [facility] Triage Call: Reviewed last [...] Assessment & Plan (01/14/2022 1:57 PM EDT): [facility] Call: I'm not sure who Dr [...] Assessment & Plan (08/29/2021 1:21 PM EST): [facility] Triage Call: Based on what is described [...] Coronary artery disease invo lving [place] coronary artery of [place] heart without angina pectoris 07/03/2012 Overview (07/03/2012): [...] as of this encounter (statuses as of 07/21/2024) Resolved Problems Problem Noted Date Diagnosed Date [...] as of this encounter (statuses as of 07/21/2024) Immunizations Name Administration Dates Next Due COVID-19 mRNA, LNP-s, No Pre serve, 2-Dose Series ([employer]) 08/29/2021,10/23/2020,10/02/2020 COVID-19, MRNA-LNP, PF, 30 M CG/0.3 mL, 12 YRS AND ABOVE, IM ([employer]-Comirnaty) 08/04/2023 Covid-19, Mrna, Lnp-s, Pf, B ivalent, [...] Telephone Encounter - Silvina Araujo RN - 07/21/2024 1:00 PM EST [facility] ED Follow Up Patient Overview: Patient Name: Regla Castano [facility]ing [facility] Current [facility] Status: Currently Enrolled - [facility] Outpatient Risk of Hospital Admission and ED Visit: 56 % ED Clinical Background: ED Discharge Diagnosis: Other: constipation Objective Data 07/18/2024 1:26 PM 06/21/2024 12:23 PM 2024 2:29 PM 06/08/2024 1:49 PM 05/17/2024 2:04 PM VITALS ACROSS ENCOUNTERS BP 130/60 110/60 108/64 108/52 118/60 Pulse 72 80 75 64 Weight 108 kg BMI 44.99 kg/m2 Disposition Overview: Remote Patient Monitoring Given: NO Remote Patient Monitoring Oxygen Requirements: NO supplemental oxygen needs identified with status of: Not ordered DME Needs: NO DME needs identified with status of: Not ordered Medication Review: No medication or dose adjustments made during acute episode Current Concerns: Spoke with the pt's daughter Josselyn who states that she did take the pt to [facility] ED yesterday at around 1pm. CT scan revealed that her colon was full of stool, no obstruction.They gave the pt a soap suds enema in the ED and then a milk and molasses enema in the ED and had some results from them. Afterwards the pt was exhausted and they kept her over night. The doctor had the pt undergo another CT scan which revealed that her colon is still full of stool so they plan to give the pt more enemas today. Josselyn is hopeful that the pt can come home either tonight or first thing in the morning. Scheduled follow-up includes: ED to Home follow up complete with appropriate follow up scheduled. Future Visits Scheduled: Future Appointments-next 60 days Date/Time Provider Specialty Dept Phone 07/23/2024 9:30 AM [facility], Nurse Lise [facility] at Home [phone] 07/30/2024 2:30 PM Destiny Schultz RN [facility] [phone] 09/16/2024 3:00 PM Brandt Santacruz PA-C [facility] [phone] 10/01/2024 1:00 PM Kusum Jones CRNP Family Medicine [phone] 10/13/2024 11:30 AM Chandler Pena MD Urology [phone] 11/24/2024 1:40 PM (Arrive by 1:25 PM) Sheryl Pena PA-C Dermatology [phone] 04/18/2025 1:20 PM Verónica Benavides MD Family Medicine [phone] Silvina Araujo, POPPY Telehealth Scheduling Guidelines Current Health Monitor Ordering Guidelines documented in this encounter Plan of Treatment Upcoming Encounters Date Type Department Care Team (Late st Contact Info) Description 07/23/2024 9:30 AM EST Scheduled Telephone [facility], [facility] [address] [facility] [place] [address] [facility], Nurse [facility] [address] [facility] [place] [address] 07/30/2024 2:30 PM EST Home Visit [facility], [facility] [address] [place] [address] Destiny Schultz RN [address] [place] [address] 09/16/2024 3:00 PM EST Home Visit [facility], [facility] [address] [place] [address] Brandt Santacruz PA-C [address] [place] [address] 10/01/2024 1:00 PM EST Telemedicine Family Medicine [address] [place] [phone] Kusum Jones [address] [place] [address] 10/13/2024 11:30 AM EST Telemedicine Urology, [facility] [address] [place] [address] Chandler Pena MD [address] [place] [address] 11/24/2024 1:40 PM EDT Office Visit Dermatology [address] [place] [address] Sheryl Pena PA-C [address] [place] [address] [place] [address] 04/18/2025 1:20 PM EDT Telemedicine Family Medicine [address] [place] [phone] Verónica Benavides MD [address] [place] [address] [place] [address] Health Maintenance Due Date Last Done Comments [...] Additional history exists CKD PHOS USE SMARTSET 04832 05/05/202504/25, 04/30/2024, 04/02/2024, Additional history exists CKD HGB USE SMARTSET 81964 05/26/202505/26, 05/26/2024, 05/07/2024, Additional history exists Pneumococcal [...] on File Type Date 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
== END 2024-07-22 13:56 | disposition home or self-care (01) ==
LOC: 3E 13:52 → ED 13:52 → 3E 07-21 00:06

== ENCOUNTER 2024-08-08 16:40 | Inpatient (IN) ==
--- OUTSIDE RECORDS SUMMARY | 2024-08-08 16:49 | External Medical Summary | Summary of Care ---
Author Name Unknown Organization [facility] Address [address] [place] [address] Phone [phone] Care Team Providers Care Dye Mixer Name Role Phone Verónica Benavides MD Primary Care Provide r Reason for Visit * Reason Onset Date Comments [facility]: Maintenance 08/08/2024 Encounter Details Date Type Department Care Team (Late st Contact Info) Description 08/08/2024 2:00 PM EST Scheduled Telephone [facility], [facility] [address] [place] [address] [facility], Nurse [facility] [address] [place] [address] Allergies Active Allergy Reactions Criticality Noted Date Comments Adhesive Tape Medium 01/30/2022 Ibuprofen Hives 01/13/2012 Aspirin Hives,Rash 09/15/2000 Sulfamethoxazole-Trimeth oprim Nausea/vomiting,Othe r (Please comment) 10/27/2020 Dizziness Ciprofloxacin Hcl 06/16/2019 Hoarse, dizzy,disoriented Morphine 09/21/2021 Blacked out Penicillins Hives,Rash 09/15/2000 Prednisone 12/30/2017 Weakness/memory changes/blurred vision documented as of this encounter (statuses as of 08/08/2024) Medications OneTouch Verio w/Device Kit Use up to 4 times a day E11.9 1 Kit 08/28/19 21 Active Bisacodyl 5 MG Oral Tablet Delayed Release Take 2 Tablets by mouth daily as needed for Constipation. Do not use for more than one week. Do not cut, crush or chew 40 Tablet 1 01/25/20 23 Active Estrogens Conjugated 0.625 MG/GM Vaginal Cream (Premarin) Administer 0.5 g into the vagina every night at bedtime. Pea-sized amount around vulvar area nightly 30 g 5 07/14/20 23 Active Phenazopyridine HCl 200 MG Oral Tablet [...] XL)Indications:Non -ischemic cardiomyopathy (HCC),Coronary artery disease involving [place] coronary artery of [place] heart without angina pectoris,HTN, goal below 140/90 Take 1 Tablet by mouth every evening. 90 Tablet 1 05/12/20 24 Active Colchicine 0.6 MG Oral [...] week. 0.5 mL 3 06/07/20 24 Active Potassium Chloride Laura ER 20 MEQ Oral Tablet Extended Release Take 1 Tablet by mouth 2 times a day with morning and evening meals. 180 Tablet 3 06/29/20 Active metOLazone 2.5 MG Oral Tablet (Zaroxolyn) Take one tab only as directed with diuretic titration plan 07/23/20 Active DIURETIC TITRATION PLAN If no improvement on day 3, contact heart failure managing provider. 1 Each 07/23/20 Active Torsemide 100 MG Oral Tablet (Demadex) Take 1 Tablet by mouth in the morning and 1 Tablet before bedtime. 60 Tablet 1 08/05/20 Active Myrbetriq 25 MG Oral Tablet Extended Release 24 Hour (Mirabegron ER) Take 1 Tablet by mouth in the morning. 90 Tablet 3 08/06/20 Active OneTouch Delica Plus [id number] ns:Type 2 diabetes mellitus with hemoglobin A1c goal of less than 8.0% ([facility]) Test up to two times daily or as directed by [facility] pharmacist 200 Each 3 08/06/20 Active OneTouch Verio In Vitro Strip (Glucose Blood)Indications: Type 2 diabetes mellitus with hemoglobin A1c goal of less than 8.0% (HCC),Type 2 diabetes mellitus with stage 3 chronic kidney disease, without long-term current use of insulin (HCC) TEST UP TO FOUR TIMES DAILY 400 Strip 3 08/06/20 Active documented as of this encounter (statuses as of 08/08/2024) Active Problems Problem Noted Date Diagnosed Date 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 Impaired mobility and ADLs 11/12/2022 Ventral hernia [...] Assessment & Plan (08/29/2021 1:27 PM EST): [facility] Triage Call: Reviewed last [...] chronic kidney disease 11/28/2020 Assessment & Plan (07/23/2024 2:07 PM EST): "RED FLAG" HF Symptoms: Leg Swelling Orthopnea Cough Medication Regimen: Beta Berta Therapy: Metoprolol Succinate (ER) MARIO Inhibitor/ARB Therapy: No MARIO/ARB/ARNI secondary to: Hypotension Diuretic therapy: Torsemide Aldactone SGLT2 Inhibitor: No Current SGLT2 (Describe in the Comments) Remote Patient Monitoring Vendor: No Connected RPM Device(s): Traditional Scale Self - Management Plan Add metolazone (Zaroxolyn) 2.5-5mg for 1 days. If using a potassium supplement, double the dose of the supplement will be given on the day of and on the day after the metolazone Exacerbation Plan Anticipated IV Lasix dose: 200 mg CMP Mag Level Pro-BNP Chest X-Ray Additional Comments: Suspect patient is hypervolemic today-weight is up from baseline from recent inpatient stay. She added additional torsemide beginning of the week without improvement. Sounds like she was having orthopnea, cough and now with diminished/rales in lungs. Increased swelling in legs per daughter. --metolazone 2.5 mg today 30 minutes prior to afternoon torsemide dose Check weight daily we will have intake call daily over the weekend Patient sees PCP on Friday Assessment & Plan (06/22/2024 10:20 AM EDT): [...] Assessment & Plan (01/14/2022 1:57 PM EDT): [facility] Call: I'm not sure who Dr Dominguez [...] Assessment & Plan (08/29/2021 1:21 PM EST): [facility] Triage Call: Based on what is [...] Continue synthroid Coronary artery disease invo lving [place] coronary artery of [place] heart without angina pectoris 07/03/2012 Overview (07/03/2012): [...] as of this encounter (statuses as of 08/08/2024) Resolved Problems Problem Noted Date Diagnosed Date [...] minutes. Flush years afterwards with warm water. Trochanteric bursitis of right hip 07/10/2021 06/17/2024 [...] of inactive term DIVERTICULOSIS OF COLON 03/21/2004 09/0 01/2018 Calculus of kidney 09/15/2003 8 Hypercalcemia [...] as of this encounter (statuses as of 08/08/2024) Immunizations Name Administration Dates Next Due COVID-19 mRNA, LNP-s, No Pre serve, 2-Dose Series ([facility]) 08/29/2021,10/23/2020,10/02/2020 COVID-19, MRNA-LNP, PF, 30 M CG/0.3 mL, 12 YRS AND ABOVE, IM ([employer]-Comirnat) 08/04/2023 Covid-19, Mrna, Lnp-s, Pf, B ivalent, 30 Mcg, IM, 12 yrs and above ([facility]) 08/02/2022 Pneumococcal Conjugate Vacc, 13 Valent (Prevnar) [...] encounter Miscellaneous Notes * Telephone Encounter - Alireza Mcleod MD - 08/08/2024 2:28 PM EST Spoke with daughter. Patient currently very dizzy and having hard time breathing. Patient had Torsemide increased to 100mg BID two days ago but breathing still sounds labored and now patient dizzy. Daughter questioning if treatment at home with bactrim vs ER. Given now with shortness of breath, dizziness and labored breathing recommended ER evaluation as patient may be septic. Daughter in agreement. She is taking to non [facility] facility which is close by. Culture results with sensitivities discussed with daughter. * Telephone Encounter - Alireza Mcleod MD - 08/08/2024 1:59 PM EST Oral option for treatment is Bactrim based on sensitives and renal function. Listed allergy to bactrim is nausea and dizziness. Can give bactrim with Zofran for twice a day for three days to treat at home Otherwise patient willneed to go to hospital for IV treatment. Macrobid not an option based on sensitives. Attempted to call daughter to discuss but no answer. Message left to back [facility]. Please provide recommendations when calls back and if in agreement will send bactrim and zofran to preferred pharmacy. * Telephone Encounter - Vero Buckner RN - 08/08/2024 1:18 PM EST Please review prelim urine results Exacerbation plan notes Pt has been tx in the home with IV ertapenem for FCGG-[id number]-Htsc-urine [facility] keeps on hand. -there are some notes that pt was recently admitted for ertapenem -pcp noted daughter requesting 3 days of ertapenem because it makes her confused and then transition to oral macrobid Preliminary urine results Culture Growth >100,000 colonies/mL Escherichia coli ESBL producing organism, This patient may require isolation. Abnormal This gram negative bacilli displays in vitro resistance to multiple antibiotics. This patient may require isolation. Carbapenem use is preferred. Contact infectious disease service for further recommendations. <10,000 colonies/ml mixed normal rachid Resulting Agency: Susceptibility Escherichia coli ESBL producing organism, This patient may require isolation. MICROBROTH DILUTIONS (Preliminary) Ampicillin Resistant Ampicillin/Sulbactam Susceptible Cefazolin Resistant Cefepime See below 1 Cefoxitin Intermediate Ceftriaxone Resistant Ciprofloxacin Intermediate 2 Gentamicin Susceptible Levofloxacin Intermediate 3 Meropenem Susceptible Nitrofurantoin Resistant Piperacillin Tazobactam Susceptible Trimeth/Sulfamethoxazole Susceptible 1 Pending 2 Due to serious side effects, the FDA has advised against using Ciprofloxacin to treat uncomplicated UTIs and respiratory tract infections unless there are no alternative treatment options. 3 Due to serious side effects, the FDA has advised against using Levofloxacin to treat uncomplicated UTIs and respiratory tract infections unless there are no alternative treatment options. Specimen Collected: 08/06/24 09:20 Last Resulted: 08/08/24 10:44 documented in this encounter Plan of Treatment Upcoming Encounters Date Type Department Care Team (Late st Contact Info) Description 08/11/2024 7:00 AM EST Laboratory Lab Mobile Phlebotomy [facility] [address] [facility] [place] [address] [facility], Gml Mobile Home Draw [address] [place] [address] 08/23/2024 12:30 PM EST Home Visit [facility], [facility] [address] [facility] [place] [address] Destiny Scuhltz, POPPY [address] [facility] [place] [address] 09/16/2024 3:00 PM EST Home Visit [facility], [facility] [address] [facility] [place] [address] Brandt Santacruz PA-C [address] [facility] [place] [address] 10/01/2024 1:00 PM EST Telemedicine Family Medicine [address] [place] [phone] Kusum Jones CRNP [address] [place] [address] [place] [address] 10/13/2024 11:30 AM EST Telemedicine Urology, [facility] [address] [facility] [place] [address] Chandler Pena MD [address] [place] [address] 11/24/2024 1:40 PM EDT Office Visit Dermatology [address] [place] [address] Sheryl Pena PA-C [address] [place] [address] [place] [address] 04/18/2025 1:20 PM EDT Telemedicine Family Medicine [address] [place] [phone] Verónica Benavides MD [address] [place] [address] [place] [address] Health Maintenance Due Date [...] Additional history exists CKD PHOS USE SMARTSET 72954 05/05/202504/25, 04/30/2024, 04/02/2024, Additional history exists CKD HGB USE SMARTSET 69951 08/04/202508/04, 08/04/2024, 05/26/2024, Additional history exists Pneumococcal Vaccine: 65+ Years [...] Onset Date Last Indicated Resolved Time ESBL 08/06/2024 08/06/2024 documented as of this encounter Advance Directives Documents on File Type Date Recorded 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
--- OUTSIDE RECORDS SUMMARY | 2024-08-08 16:49 | External Medical Summary | Summary of Care ---
Author Name Unknown Organization [facility] Address [address] [place] [address] Phone [phone] Care Team Providers Care Flaker Operator Name Role Phone Verónica Jiang MD Primary Care Provide r Reason for Visit * Reason Comments eRx-Medication Refill Encounter Details Date Type Department Care Team (Late st Contact Info) Description 08/06/2024 Refill Family Medicine [address] [phone] Verónica Jiang MD [address] [place] [id number] Type 2 diabetes mellitus with hemoglobin A1c goal of less than 8.0% ([facility]); Type 2 diabetes mellitus with stage 3 chronic kidney disease, without long-term current use of insulin ([facility]) Allergies Active Allergy Reactions Criticality Noted Date Comments Adhesive Tape Medium 01/30/2022 Ibuprofen Hives 01/13/2012 Aspirin Hives,Rash 09/15/2000 Sulfamethoxazole-Trimeth oprim Nausea/vomiting,Othe r (Please comment) 10/27/2020 Dizziness Ciprofloxacin Hcl 06/16/2019 Hoarse, dizzy,disoriented Morphine 09/21/2021 Blacked out Penicillins Hives,Rash 09/15/2000 Prednisone 12/30/2017 Weakness/memory changes/blurred vision documented as of this encounter (statuses as of 08/06/2024) Medications OneTouch Verio w/Device Kit Use up to 4 times a day E11.9 1 Kit 021 Active Bisacodyl 5 MG Oral Tablet Delayed Release Take 2 Tablets by mouth daily as needed for Constipation. Do not use for more than one week. Do not cut, crush or chew 40 Tablet 1 023 Active Estrogens Conjugated 0.625 MG/GM Vaginal Cream (Premarin) Administer 0.5 g into the vagina every night at bedtime. Pea-sized amount around vulvar area nightly 30 g 5 023 Active Phenazopyridine HCl 200 MG Oral Tablet (Pyridium) Take 1 Tablet by mouth 3 times a day as needed for Pain, Severe. After meals for pain with urination 6 Tablet 024 Active D-Mannose 500 MG Oral Capsule Take 2 Tablets by mouth in the morning and 2 Tablets before bedtime. 2 caps two times daily. 120 Capsule 024 Active Glucosamine Chondr 500 Complex Oral Capsule Take 1 Capsule by mouth in the morning and 1 Capsule before bedtime. 60 Capsule 024 Active Magnesium Oxide 400 MG Oral Tablet Take 1 Tablet by mouth in the morning. 30 Tablet 024 Active Polyethylene Glycol 3350 17 GM/SCOOP Oral Powder (MiraLax) Take 17 g by mouth in the morning. Dissolve one heaping tablespoon in 8 ounces of water or juice.. 255 g 024 Active Probiotic Acidophilus BioBeads Oral Capsule Take 1 Capsule by mouth every evening. Just with antibiotics 30 Capsule 024 Active Sennosides 8.6 MG Oral Tablet Take 2 Tablets by mouth in the morning. 60 Tablet 024 Active Stool Softener 100 MG Oral Tablet (Docusate Sodium) Take 3 Tablets by mouth in the morning and 3 Tablets before bedtime. 120 Tablet 024 Active Vitamin B-12 500 MCG Oral Tablet (vitamin B-12) Take 1 Tablet by mouth in the morning. 30 Tablet 024 Active Vitamin D-3 25 MCG (1000 UT) Oral Capsule Take 1 Capsule by mouth in the morning. 30 Capsule 024 Active Ondansetron HCl 4 MG Oral Tablet Take 1 Tablet by mouth every 6 hours as needed for Nausea. 20 Tablet 024 Active Meclizine HCl 25 MG Oral Tablet (Antivert)Indicat ions:Vertigo Take 1 tablet by mouth 3 times a day as needed for dizziness 30 Tablet 5 024 Active Spironolactone 25 MG Oral Tablet (Aldactone)Indica tions:Non-ischemi c cardiomyopathy (HCC) Take 0.5 Tablets by mouth in the morning. 45 Tablet 3 024 Active Diclofenac Sodium 1 % External Gel (Voltaren) Apply topically to affected area 3 times a day as needed for Pain, Mild. 50 g 3 024 Active Omeprazole 20 MG Oral Capsule Delayed Release (PriLOSEC) Take 1 Capsule by mouth in the morning. One hour before the first meal of the day.. 90 Capsule 1 024 Active Levothyroxine Sodium 88 MCG Oral Tablet (Levoxyl)Indicati ons:Hypothyroidis m, unspecified type Take 1 Tablet by mouth daily first thing in the morning. (at least 30 min prior to breakfast or other meds) 90 Tablet 3 024 Active Metoprolol Succinate ER 25 MG Oral Tablet Extended Release 24 Hour (toPROL XL)Indications:No n-ischemic cardiomyopathy (HCC),Coronary artery disease involving ekuk coronary artery of ekuk heart without angina pectoris,HTN, goal below 140/90 Take 1 Tablet by mouth every evening. 90 Tablet 1 024 Active Colchicine 0.6 MG Oral Tablet Take 1 Tablet by mouth 2 times a day as needed (GOUT). Active Promethazine-DM 6.25-15 MG/5ML Oral Syrup Take by mouth 4 times a day as needed for Cough. Active Nitrofurantoin Monohyd Macro 100 MG Oral Capsule (Macrobid) Take 1 Capsule by mouth every night at bedtime. 024 Active Clotrimazole 1 % External Cream (Lotrimin)Indicat ions:Candidal intertrigo APPLY TO THE AFFECTED AREA(S) TWICE DAILY FOR FOURTEEN DAYS 60 g 2 024 Active Trulicity 0.75 MG/0.5ML Subcutaneous Solution Pen-injector (Dulaglutide) Inject 0.75 mg under the skin once a week. 0.5 mL 3 024 Active Potassium Chloride Laura ER 20 MEQ Oral Tablet Extended Release Take 1 Tablet by mouth 2 times a day with morning and evening meals. 180 Tablet 3 024 Active metOLazone 2.5 MG Oral Tablet (Zaroxolyn) Take one tab only as directed with diuretic titration plan Active DIURETIC TITRATION PLAN If no improvement on day 3, contact heart failure managing provider. 1 Each 024 Active Torsemide 100 MG Oral Tablet (Demadex) Take 1 Tablet by mouth in the morning and 1 Tablet before bedtime. 60 Tablet 1 Active Myrbetriq 25 MG Oral Tablet Extended Release 24 Hour (Mirabegron ER) Take 1 Tablet by mouth in the morning. 90 Tablet 3 024 Active OneTouch Delica Plus [id number] ons:Type 2 diabetes mellitus with hemoglobin A1c goal of less than 8.0% (HCC) Test up to two times daily or as directed by [facility] pharmacist 200 Each 3 024 Active OneTouch Verio In Vitro Strip (Glucose Blood)Indications :Type 2 diabetes mellitus with hemoglobin A1c goal of less than 8.0% (HCC),Type 2 diabetes mellitus with stage 3 chronic kidney disease, without long-term current use of insulin (HCC) TEST UP TO FOUR TIMES DAILY 400 Strip 3 024 Active OneTouch Verio In Vitro Strip (Glucose Blood)Indications :Type 2 diabetes mellitus with stage 3 chronic kidney disease, without long-term current use of insulin (HCC),Type 2 diabetes mellitus with hemoglobin A1c goal of less than 8.0% (HCC) TEST UP TO FOUR TIMES DAILY 400 Strip 1 023 2023 Discontinued OneTouch Delica Plus [id number] ons:Type 2 diabetes mellitus with hemoglobin A1c goal of less than 8.0% (HCC) Test up to two times daily or as directed by 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 05/05/2024 Anemia 05/05/2024 Full code status 05/03/2024 Recurrent UTI (urinary tract infection) 12/17/19 24 Slow transit constipation 11/29/2022 Assessment & Plan [...] Plan (08/29/2021 1:27 PM EST): [facility] Triage Call: [...] Assessment & Plan (01/14/2022 1:57 PM EDT): [facility] Call: I'm not sure who [...] Plan (08/29/2021 1:21 PM EST): [facility] Triage Call: Based on what is [...] Continue synthroid Coronary artery disease invo lving ekuk coronary artery of ekuk heart without angina pectoris 07/03/2012 Overview (07/03/2012): [...] as of this encounter (statuses as of 08/06/2024) Resolved Problems Problem Noted Date Diagnosed Date [...] as of this encounter (statuses as of 08/06/2024) Immunizations Name Administration Dates Next Due COVID-19 mRNA, LNP-s, No Pre serve, 2-Dose Series ([employer]ame[employer]) 08/29/2021,10/23/2020,10/02/2020 COVID-19, MRNA-LNP, PF, 30 M CG/0.3 mL, 12 YRS AND ABOVE, IM (Ariisto-Comirnat) 08/04/2023 Covid-19, Mrna, Lnp-s, Pf, B ivalent, [...] No 2024 Does the household have a unm hospitallar source of income? (Household - for ages [...] encounter Miscellaneous Notes * Telephone Encounter - Mackenzie Javier, [facility] - 08/06/2024 5:30 PM ESTSigned Prescriptions: Disp Refills OneTouch Delica Plus [id number] 200 Ea*3 Sig: Test up to two times daily or as directed by [facility] pharmacistAuthorizing Provider: VERÓNICA JIANG User: MACKENZIE JAVIER Verio In Vitro Strip (Glucose Blo*400 St*3 Sig: TEST UP TO FOUR TIMESDAILYAuthorizing Provider: VERÓNICA JIANG User: MACKENZIE JAVIER documented in this encounter Plan of Treatment Upcoming Encounters Date Type Department Care Team (Late st Contact Info) Description 08/07/2024 8:45 AM EST Scheduled Telephone [facility], [facility] [address] [place] [address] [place], Nurse [facility] [address] [place] [address] 08/11/2024 7:00 AM EST Laboratory Lab [facility] [address] [facility] [address] [facility] Mobile Home Draw [address] [place] [address] 08/23/2024 12:30 PM EST Home Visit [facility], [facility] [address] [place] [address] Destiny Schultz, RN [address] [place] [address] 09/16/2024 3:00 PM EST Home Visit [facility], [facility] [address] [place] [address] Brandt Santacruz PA-C [address] [place] [address] 10/01/2024 1:00 PM EST Telemedicine Family Medicine [address] [place] [phone] Kusum Jones CRNP [address] [place] [address] [place] [address] 10/13/2024 11:30 AM EST [facility]medicine [facility], [facility] [place] [address] Chandler Pena MD [address] [place] [address] 11/24/2024 1:40 PM EDT Office Visit Dermatology [address] [place] [address] Sheryl Pena PA-C [address] [place] [address] [place] [address] 04/18/2025 1:20 PM EDT Telemedicine Family Medicine [address] [place] [phone] Verónica Jiang MD [address] [place] [address] [place] [address] Health Maintenance Due Date Last Done Comments [...] Additional history exists CKD PHOS USE SMARTSET 56464 05/05/202504/25, 04/30/2024, 04/02/2024, Additional history exists CKD HGB USE SMARTSET 99132 08/04/202508/04, 08/04/2024, 05/26/2024, Additional history exists Pneumococcal [...] pacemaker in situ Coronary artery disease involving ekuk coronary artery of ekuk heart without angina pectoris Hypertensive heart and [...] Advanced care planning/counseling discussion Other specified counseling 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)- Primary Type 2 diabetes mellitus with hemoglobin A1c goal of less than 8.0% (HCC) documented in this encounter Additional Health Concerns Infection Onset Date Last Indicated Resolved Time ESBL 06/07/2024 06/07/2024 08/06/2024 12:1 9 AM EST documented as of this encounter Advance Directives Documents on File Type Date Recorded 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
--- OUTSIDE RECORDS SUMMARY | 2024-08-08 16:49 | External Medical Summary | Summary of Care ---
Author Name Unknown Organization [facility] Address [address] [place] [address] Phone [phone] Care Team Providers Care Child Nutrition Director Name Role Phone Verónica Benavides MD Primary Care Provide r Reason for Visit * Reason Onset Date Comments [facility]: Maintenance 08/07/2024 Encounter Details Date Type Department Care Team (Late st Contact Info) Description 08/07/2024 8:45 AM EST Scheduled Telephone [facility], [facility] [address] [place] [address] [facility], Nurse [facility] [address] [place] [address] Allergies Active Allergy Reactions Criticality Noted Date Comments Adhesive Tape Medium 01/30/2022 Ibuprofen Hives 01/13/2012 Aspirin Hives,Rash 09/15/2000 Sulfamethoxazole-Trimeth oprim Nausea/vomiting,Othe r (Please comment) 10/27/2020 Dizziness Ciprofloxacin Hcl 06/16/2019 Hoarse, dizzy,disoriented Morphine 09/21/2021 Blacked out Penicillins Hives,Rash 09/15/2000 Prednisone 12/30/2017 Weakness/memory changes/blurred vision documented as of this encounter (statuses as of 08/07/2024) Medications OneTouch Verio w/Device Kit Use up [...] XL)Indications:Non -ischemic cardiomyopathy (HCC),Coronary artery disease involving [place]eb[place] coronary [...] Tablet 3 08/06/20 Active OneTouch Delica Plus [id number] ns:Type 2 diabetes mellitus with hemoglobin A1c goal of less than 8.0% ([facility]) Test up to two times daily or as directed by [facility] pharmacist 200 Each 3 08/06/20 Active OneTouch Verio In Vitro Strip (Glucose Blood)Indications: Type 2 diabetes mellitus with hemoglobin A1c goal of less than 8.0% (HCC),Type 2 diabetes mellitus with stage 3 chronic kidney disease, without long-term current use of insulin (HCC) TEST UP TO FOUR TIMES DAILY 400 Strip 3 08/06/20 Active documented as of this encounter (statuses as of 08/07/2024) Active Problems Problem Noted Date Diagnosed Date [...] Assessment & Plan (08/29/2021 1:27 PM EST): [facility] Triage Call: Reviewed last C&S - [...] Assessment & Plan (01/14/2022 1:57 PM EDT): [facility] Call: I'm not sure who Dr [...] Assessment & Plan (08/29/2021 1:21 PM EST): [facility] Triage Call: Based on what is [...] of stebbins heart without angina pectoris 07/03/2012 Overview (07/03/2012): [...] as of this encounter (statuses as of 08/07/2024) Resolved Problems Problem Noted Date Diagnosed Date [...] as of this encounter (statuses as of 08/07/2024) Immunizations Name Administration Dates Next Due COVID-19 mRNA, LNP-s, No Pre serve, 2-Dose Series ([employer]) 08/29/2021,10/23/2020,10/02/2020 COVID-19, MRNA-LNP, PF, 30 M CG/0.3 mL, 12 YRS AND ABOVE, IM (Diversion-Comirnat) 08/04/2023 Covid-19, Mrna, Lnp-s, Pf, B ivalent, 30 Mcg, IM, 12 yrs and above ([employer]) 08/02/2022 Pneumococcal Conjugate Vacc, 13 Valent (Prevnar) [...] encounter Miscellaneous Notes * Telephone Encounter - Vero Buckner RN - 08/07/2024 9:11 AM EST UTI symptoms. Yary to drop off urine specimen to lab. Also pt weight and LE edema on increased dose of Torsemide Urine received in lab--culture in process. Spoke with Yary for follow up. Pt is very tired. Weight is trending down from 235 lbs Yesterday 232.2 lbs; Bp 128/68 sitting Didn't get a weight yet today, states Regla was still in bed when she was there this morning. She will check her weight when she returns to pt's home. States breathing is improving. Last 3 days have been able to wean from oxygen--monitoring SpO2 closely Per Yary pt has been staying around 90-91% on RA LE edema showing some improvement --daughter is starting to see some wrinkles in legs. Denies fever/chills, increased confusion. States OT recommended urine testing due to odor of urine. Will f/u in 1 day. documented in this encounter Plan of Treatment Upcoming Encounters Date Type Department Care Team (Late st Contact Info) Description 08/08/2024 2:00 PM EST Scheduled Telephone [facility], [facility] [address] [place] [address] [facility] Nurse [facility] [address] [place] [address] 08/11/2024 7:00 AM EST Laboratory Lab Mobile Phlebotomy [facility] [address] [facility] [place] [address] [facility], Gml Mobile Home Draw [address] [facility] [place] [address] 08/23/2024 12:30 PM EST Home Visit [facility], [facility] [address] [place] [address] Destiny Schultz RN [address] [place] [address] 09/16/2024 3:00 PM EST Home Visit [facility] [place], [facility] [address] [place] [address] Brandt Santacruz PA-C [address] [place] [address] 10/01/2024 1:00 PM EST Telemedicine Family Medicine [address] [place] [phone] [address] [place] [address] 10/13/2024 11:30 AM EST Telemedicine [facility]rology, [facility] [place] [address] Chandler Pena MD [address] [place] [address] 11/24/2024 1:40 PM EDT Office Visit Dermatology [address] [place] [address] Sheryl Gutierrez PA-C [address] [place] [address] [place] [address] 04/18/2025 1:20 PM EDT Telemedicine Family Medicine [address] [place] [phone] Verónica Benavides MD [address] [place] [address] [place] [address] Health Maintenance Due Date Last Done Comments [...] Additional history exists CKD PHOS USE SMARTSET 29846 05/05/202504/25, 04/30/2024, 04/02/2024, Additional history exists CKD HGB USE SMARTSET 05389 08/04/202508/04, 08/04/2024, 05/26/2024, Additional history exists Pneumococcal [...] on File Type Date Recorded Patient 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 p Communication Josselyn [facility] Adult Child Health Care Power of Attor nathalie Care Teams Child Nutrition Director Relationship Specialty Start Date End Date Verónica Benavides MD [address] [place] [address] [place] [phone] PCP - General Family Medicine 09/16/14 documented as of this encounter
--- OUTSIDE RECORDS SUMMARY | 2024-08-08 16:49 | External Medical Summary | Summary of Care ---
Author Name Unknown Organization [facility] Address [address] [place] [address] Phone [phone] Care Team Providers Care Outside Installer Apprentice Name Role Phone Verónica Benavides MD Primary Care Provide r Reason for Visit * Reason Onset Date Comments [facility]: Maintenance 08/07/2024 Encounter Details Date Type Department Care Team (Late st Contact Info) Description 08/07/2024 8:45 AM EST Scheduled Telephone [facility], [facility] [address] [place] [address] [facility], Nurse [facility] [address] [place] [address] Allergies Active Allergy Reactions Criticality Noted Date [...] XL)Indications:Non -ischemic cardiomyopathy (HCC),Coronary artery disease involving [place] [...] Tablet 3 08/06/20 Active OneTouch Delica Plus [id number] ns:Type 2 diabetes mellitus with hemoglobin A1c goal of less than 8.0% ([facility]) Test up to two times daily or as directed by [facility] pharmacist 200 Each 3 08/06/20 [...] Assessment & Plan (01/14/2022 1:57 PM EDT): [facility] Call: I'm not sure who [...] [place] heart without angina pectoris 07/03/2012 Overview (07/03/2012): [...] mRNA, LNP-s, No Pre serve, 2-Dose Series ([employer]) 08/29/2021,10/23/2020,10/02/2020 COVID-19, MRNA-LNP, PF, 30 M CG/0.3 mL, 12 YRS AND ABOVE, IM (Datalink-Comirnat) 08/04/2023 Covid-19, Mrna, Lnp-s, Pf, B ivalent, 30 Mcg, IM, 12 yrs and above ([employer]) 08/02/2022 Influenza, Whole Virus 08/07/2000 Pneumococcal Conjugate [...] 235 lbs Yesterday 232.2 lbs; Bp 128/68 08/06/24 per Yary Didn't get a weight yet today, states [...] PM EST Scheduled Telephone [facility], [facility] [address] [place] [address] [facility], Nurse [facility] [place] [address] 08/11/2024 7:00 AM EST Laboratory Lab Mobile Phlebotomy [facility] [address] [employer] [address] [place] [address] [facility], Gml Mobile Home Draw [address] [employer] [place] [address] 08/23/2024 12:30 PM EST Home Visit [facility], [facility] [address] [place] [address] Destiny Schultz RN 132 [facility] [place] [address] 09/16/2024 3:00 PM EST Home Visit [facility], [facility] [address] [place] [address] Brandt Santacruz PA-C 132 [facility] [place] [address] 10/01/2024 1:00 PM EST Telemedicine Family Medicine [address] [place] [phone] Kusum Jones [address] [place] [address] 10/13/2024 11:30 AM EST Telemedicine Urology, [facility] [place] [address] Chadnler Pena MD [address] [place] [address] 11/24/2024 1:40 PM EDT Office Visit Dermatology [address] [place] [address] Sheryl Pena PA-C [address] [place] [address] [place] [address] 04/18/2025 1:20 PM EDT Telemedicine Family Medicine [address] [place] [phone] Verónica Benavides MD [address] [place] [address] [place] [address] Health Maintenance Due Date Last Done Comments [...] 0808/2022, 02/24/2023, Additional history exists Albumin/Creatinine Ratio 04/19/202504/19/2 024, 02/07/2023, 01/18/2022, Additional history exists CKD PHOS USE SMARTSET 57252 05/05/202504/25, 04/30/2024, 04/02/2024, Additional history exists CKD HGB USE SMARTSET 44166 08/04/202508/04, 08/04/2024, 05/26/2024, Additional history exists Pneumococcal [...] Documents on File Type Date Recorded Patient Lower In Supervisor Expl anation Advance Directives and Living Will 08/10/2021 ADVANCE DIRECTIVE / LIVING WILL LIVING WILL Healthcare Agents on File Name Relationship Healthcare Agent Relationshi p Communication Josselyn Judd Adult Child Health Care Power of Attor nathalie Care Teams Outside Installer Apprentice Relationship Specialty Start Date End Date Verónica Benavides MD [address] [place] [address] [place] [address] PCP - General Family Medicine 09/16/14 documented as of this encounter
--- OUTSIDE RECORDS SUMMARY | 2024-08-08 16:50 | External Medical Summary | Summary of Care ---
Author Name Unknown Organization [facility] Address [address] [place] [address] Phone [phone] Care Team Providers Care Telephone Operators Supervisor Name Role Phone Verónica Benavides MD Primary Care Provide r Reason for Visit * Reason Comments eRx-Medication Refill Encounter Details Date Type Department Care Team (Late st Contact Info) Description 08/06/2024 Refill Urology, [facility] 132 [facility] [place] [id number] Chandler Covarrubias MD [address] [place] [address] Allergies Active Allergy Reactions Criticality Noted Date [...] or chew 40 Tablet 1 023 Active OneTouch Verio In Vitro Strip (Glucose Blood)Indications :Type 2 diabetes mellitus with stage 3 chronic kidney disease, without long-term current use of insulin ([facility]),Type 2 diabetes mellitus with hemoglobin A1c goal of less than 8.0% ([facility]) TEST UP TO FOUR TIMES DAILY 400 Strip 1 023 Active OneTouch Delica Plus [id number] ons:Type 2 diabetes mellitus with hemoglobin A1c goal of less than 8.0% ([facility]) Test up to two times daily or as directed by [facility] pharmacist 200 Each 3 023 Active Estrogens Conjugated 0.625 MG/GM Vaginal [...] 2 caps two times daily. 120 Capsule Active Glucosamine Chondr 500 Complex Oral Capsule [...] every evening. Just with antibiotics 30 Capsule Active Sennosides 8.6 MG Oral Tablet Take 2 Tablets by mouth in the morning. 60 Tablet 024 Active Stool Softener 100 MG Oral Tablet (Docusate Sodium) Take 3 Tablets by mouth in the morning and 3 Tablets before bedtime. 120 Tablet Active Vitamin B-12 500 MCG Oral Tablet (vitamin B-12) Take 1 Tablet by mouth in the morning. 30 Tablet Active Vitamin D-3 25 MCG (1000 UT) Oral Capsule Take 1 Capsule by mouth in the morning. 30 Capsule Active Ondansetron HCl 4 MG Oral Tablet Take 1 Tablet by mouth every 6 hours as needed for Nausea. 20 Tablet Active Meclizine HCl 25 MG Oral Tablet (Antivert)Indicat ions:Vertigo Take 1 tablet by mouth 3 times a day as needed for dizziness 30 Tablet 5 Active Spironolactone 25 MG Oral Tablet (Aldactone)Indica tions:Non-ischemi c cardiomyopathy (HCC) Take 0.5 Tablets by mouth in the morning. 45 Tablet 3 Active Diclofenac Sodium 1 % External Gel (Voltaren) Apply topically to affected area 3 times a day as needed for Pain, Mild. 50 g 3 Active Omeprazole 20 MG Oral Capsule Delayed Release (PriLOSEC) Take 1 Capsule by mouth in the morning. One hour before the first meal of the day.. 90 Capsule 1 Active Levothyroxine Sodium 88 MCG Oral Tablet (Levoxyl)Indicati ons:Hypothyroidis m, unspecified type Take 1 Tablet by mouth daily first thing in the morning. (at least 30 min prior to breakfast or other meds) 90 Tablet 3 Active Metoprolol Succinate ER 25 MG Oral Tablet Extended Release 24 Hour (toPROL XL)Indications:No n-ischemic cardiomyopathy (HCC),Coronary artery disease involving [place] coronary artery of [place] heart without angina pectoris,HTN, goal below 140/90 Take 1 Tablet by mouth every evening. 90 Tablet 1 Active Colchicine 0.6 MG Oral Tablet Take 1 Tablet by mouth 2 times a day as needed (GOUT). Active Promethazine-DM 6.25-15 MG/5ML Oral Syrup Take by mouth 4 times a day as needed for Cough. Active Nitrofurantoin Monohyd Macro 100 MG Oral Capsule (Macrobid) Take 1 Capsule by mouth every night at bedtime. Active Clotrimazole 1 % External Cream (Lotrimin)Indicat ions:Candidal intertrigo APPLY TO THE AFFECTED AREA(S) TWICE DAILY FOR FOURTEEN DAYS 60 g 2 Active Trulicity 0.75 MG/0.5ML Subcutaneous Solution Pen-injector (Dulaglutide) Inject 0.75 mg under the skin once a week. 0.5 mL 3 Active Potassium Chloride Laura ER 20 MEQ Oral Tablet Extended Release Take 1 Tablet by mouth 2 times a day with morning and evening meals. 180 Tablet 3 Active metOLazone 2.5 MG Oral Tablet (Zaroxolyn) Take one tab only as directed with diuretic titration plan Active DIURETIC TITRATION PLAN If no improvement on day 3, contact heart failure managing provider. 1 Each Active Torsemide 100 MG Oral Tablet (Demadex) Take 1 Tablet by mouth in the morning and 1 Tablet before bedtime. 60 Tablet 1 024 Active Myrbetriq 25 MG Oral Tablet Extended Release 24 Hour (Mirabegron ER) Take 1 Tablet by mouth in the morning. 90 Tablet 3 024 Active Mirabegron ER 25 MG Oral Tablet Extended Release 24 Hour (Myrbetriq) Take 1 Tablet by mouth in the morning. 90 Tablet 3 024 2023 Discontinued documented as of this encounter [...] Assessment & Plan (08/29/2021 1:27 PM EST): [facility] Triage Call: Reviewed last C&S [...] Assessment & Plan (01/14/2022 1:57 PM EDT): [facility] Call: I'm not sure who [...] Assessment & Plan (08/29/2021 1:21 PM EST): [facility] Triage Call: Based on what is [...] Continue synthroid Coronary artery disease invo lving [place] coronary artery of [place] heart without angina pectoris 07/03/2012 Overview (07/03/2012): [...] mRNA, LNP-s, No Pre serve, 2-Dose Series (Innovacene) 08/29/2021,10/23/2020,10/02/2020 COVID-19, MRNA-LNP, PF, 30 M CG/0.3 mL, 12 YRS AND ABOVE, IM ([employer]-Comirnat[employer]uite) 08/04/2023 Covid-19, Mrna, Lnp-s, Pf, B ivalent, 30 Mcg, IM, 12 yrs and above (Innovacene) 08/02/2022 Pneumococcal Conjugate Vacc, 13 Valent (Prevnar) [...] Miscellaneous Notes * Telephone Encounter - Chandler Covarrubias MD - 08/06/2024 12:11 PM EST Signed Prescriptions: Disp Refills Myrbetriq 25 MG Oral Tablet Extended Relea*90 Tab*3 Sig: Take 1 Tablet by mouth in the morning. Authorizing Provider: CHANDLER COVARRUBIAS * Telephone Encounter - Svetlana Samuel LPN - 08/06/2024 10:47 AM ESTPending Prescriptions: Disp Refills Myrbetriq 25 MG Oral Tablet Extended Relea*90 Tab*3 Sig: Take 1 Tablet by mouth in the morning. * Telephone Encounter - Svetlana Samuel LPN - 08/06/2024 10:47 AM EST Please refill the requested medication(s). Mybretriq Visit date not found (in office), 03/29/2024 (telemedicine) 10/13/2024 Review of patient's allergies indicates: Allergen Reactions Adhesive Tape Advil [Ibuprofen] Hives Aspirin Hives and Rash Bactrim [Sulfamethoxazole-Trimethoprim] Nausea/vomiting and Other (Please comment) Dizziness Ciprofloxacin Hcl Hoarse, dizzy,disoriented Morphine Blacked out Penicillins Hives and Rash Prednisone Weakness/memory changes/blurred vision documented in this encounter Plan of Treatment Upcoming Encounters Date Type Department Care Team (Late st Contact Info) Description 08/07/2024 8:45 AM EST Scheduled Telephone [facility] [place], [facility] [address] [place] [address] [facility], Nurse [facility] [address] [place] [address] 08/23/2024 12:30 PM EST [facility] [address] [place] [address] Destiny Schultz RN [address] [place] [address] 09/16/2024 3:00 PM EST Home Visit [facility] [place], [facility] [address] [place] [address] Brandt Santacruz PA-C [address] [place] [address] 10/01/2024 1:00 PM EST Telemedicine Family Medicine [address] [place] [phone] Kusum Jones CRNP [address] [place] [address] [place] [address] 10/13/2024 11:30 AM EST Telemedicine Urology, [facility] 132 [facility] [place] [address] Chandler Covarrubias MD [address] [place] [address] 11/24/2024 1:40 PM EDT Office Visit Dermatology [address] [place] [address] Sheryl Pnea PA-C [address] [place] [address] [place] [address] 04/18/2025 1:20 PM EDT Telemedicine Family Medicine [address] [place] [phone] Verónica Benavides MD [address] [place] [address] [place] [address] Health Maintenance Due Date Last Done Comments [...] Additional history exists CKD PHOS USE SMARTSET 95771 05/05/202504/25, 04/30/2024, 04/02/2024, Additional history exists CKD HGB USE SMARTSET 16656 08/04/202508/04, 08/04/2024, 05/26/2024, Additional history exists Pneumococcal [...] Documents on File Type Date Recorded Patient Bath Attendant Expl anation Advance Directives and Living Will 08/10/2021 ADVANCE DIRECTIVE / LIVING WILL LIVING WILL Healthcare Agents on File Name Relationship Healthcare Agent Relationshi p Communication Josselyn Judd Adult Child Health Care Power of Attor nathalie Care Teams Telephone Operators Supervisor Relationship Specialty Start Date End Date Verónica Benavides MD [address] [place] [address] [place] [address] PCP - General Family Medicine 09/16/14 documented as of this encounter
--- OUTSIDE RECORDS SUMMARY | 2024-08-08 16:50 | External Medical Summary | Summary of Care ---
Author Name Unknown Organization [facility] Address [address] [place] [address] Phone [phone] Care Team Providers Care Mining Analyst Name Role Phone Verónica Benavides MD Primary Care Provide r Reason for Visit * Reason Comments Outpatient Testing Encounter Details Date Type Department Care Team (Late st Contact Info) Description 08/06/2024 9:20 AM EST Laboratory Laboratory [address] [place] [phone] , Specimen Drop Off [address] [place] [address] UTI (urinary tract infection) Allergies Active Allergy [...] 1 05/30/20 23 Active OneTouch Delica Plus [id number] ns:Type 2 diabetes mellitus with hemoglobin A1c goal of less than 8.0% ([facility]) Test up to two times daily or as directed by [facility] pharmacist 200 Each 3 07/11/20 23 [...] as needed for Pain, Mild. 50 g 05/12/20 24 Active Omeprazole 20 MG Oral [...] -ischemic cardiomyopathy (HCC),Coronary artery disease involving [place] coronary artery of [place] heart without angina pectoris,HTN, goal [...] Tablet before bedtime. 60 Tablet 1 08/05/20 24 Active documented as of this encounter [...] Assessment & Plan (08/29/2021 1:27 PM EST): [facility] Triage Call: Reviewed [...] Assessment & Plan (01/14/2022 1:57 PM EDT): [facility] Call: I'm not sure who Dr Alberto is as I can't find that name [...] Assessment & Plan (08/29/2021 1:21 PM EST): [facility] Triage Call: Based on what is [...] Coronary artery disease invo lving [place] coronary artery of [place] heart without angina pectoris 07/03/2012 Overview (07/03/2012): [...] mRNA, LNP-s, No Pre serve, 2-Dose Series ([employer]) 08/29/2021,10/23/2020,10/02/2020 COVID-19, MRNA-LNP, PF, 30 M CG/0.3 mL, 12 YRS AND ABOVE, IM ([employer] [facility]) 08/04/2023 Covid-19, Mrna, Lnp-s, Pf, B ivalent, 30 Mcg, IM, 12 yrs and above ([employer]) 08/02/2022 Pneumococcal Conjugate Vacc, 13 Valent (Prevnar) [...] Upcoming Encounters Date Type Department Care Team ([facility] st Contact Info) Description 08/06/2024 9:45 AM EST Scheduled Telephone [facility], [address] [place] [address] [facility], Nurse [address] [place] [address] 08/07/2024 8:45 AM EST Scheduled Telephone [facility], [place] [address] [address] [place] [address] [facility] Nurse [address] [place] [address] 08/23/2024 12:30 PM EST [facility] Visit [facility], [facility] [address] [place] [address] Destiny Schultz RN 132 [facility] [place] [address] 09/16/2024 3:00 PM EST [facility] Visit [facility], [facility] Brandon Freiregail [place] [address] Brandt Santacruz PA-C [address] [place] [address] 10/01/2024 1:00 PM EST Telemedicine Family Medicine [address] [place] [phone] Kusum Jones CRNP [address] [place] [address] [place] [address] 10/13/2024 11:30 AM EST Telemedicine Urology, [facility] [place] [address] Chandler Pena MD [address] [place] [address] 11/24/2024 1:40 PM EDT Office Visit Dermatology [address] [place] [address] Sheryl Pena PA-C [address] [place] [address] [place] [address] 04/18/2025 1:20 PM EDT Telemedicine Family Medicine [address] [place] [phone] Verónica Benavides MD [address] [place] [address] [place] [address] Pending Results Name Type Priority Associated Diagnoses Date /Time URINALYSIS, REFLEX TO CULTURE (NOT FOR NEUTROPENIC PATIENTS) Lab Routine UTI (urinary tract infection) 08/06/2024 9:20 AM EST URINALYSIS, REFLEX TO CULTURE (CUP ONLY) Lab Routine UTI (urinary tract infection) 08/06/2024 9:20 AM EST URINALYSIS, REFLEX TO CULTURE Lab Routine UTI (urinary tract infection) 08/06/2024 9:20 AM EST Health Maintenance Due Date Last [...] Additional history exists CKD PHOS USE SMARTSET 45610 05/05/202504/25, 04/30/2024, 04/02/2024, Additional history exists CKD HGB USE SMARTSET 72341 08/04/202508/04, 08/04/2024, 05/26/2024, Additional history exists Pneumococcal [...] pacemaker in situ Coronary artery disease involving [place] coronary artery of [place] heart without angina pectoris Hypertensive heart and [...] less than 8.0% ([facility]) Drug-induced constipation Other constipation Gastroesophageal reflux disease [...] stage 3a chronic kidney disease (HCC)- Primary UTI (urinary tract infection) Urinary tract infection, site not specified documented in this encounter Advance Directives Documents on File Type Date Recorded Patient Logistics Loss Prevention Manager Expl anation Advance Directives and Living Will 08/10/2021 ADVANCE DIRECTIVE / LIVING WILL LIVING WILL Healthcare Agents on File Name Relationship Healthcare Agent [facility] Rodger Judd [facility] Child [facility] Power of Attor nathalie Care Teams Mining Analyst Relationship Specialty Start Date End Date Verónica Benavides MD [address] [place] [address] [place] [address] PCP - General Family Medicine 09/16/14 documented as of this encounter
--- OUTSIDE RECORDS SUMMARY | 2024-08-08 16:50 | External Medical Summary ---
Author Name Unknown Address Unknown Organization K01:[facility]ORY [facility] - [address] [facility] [address] Laboratory Report Ordering Provider Test Date Status ELIZABETH DOMINGUEZ 08/06/2024 09:20:00 Final Observation Date Value Abnormality Reference (Units ) Status Color of Urine by Auto 08/06/2024 09:20:00 Light Yellow Colorless, Light Yellow, Yellow, Dark Yellow Final Clarity, Urine 08/06/2024 09:20:00 Slightly Cloudy Abnormal Clear Final Glucose [Mass/volume] in Urine by Automated test strip 08/06/2024 09:20:00 Negative Negative (mg/dL) Final Bilirubin.total [Presence] in Urine by Automated test strip 08/06/2024 09:20:00 Negative Negative Final Ketones [Mass/volume] in Urine by Automated test strip 08/06/2024 09:20:00 Negative Negative (mg/dL) Final Specific gravity, Urine 08/06/2024 09:20:00 1.010 1.003-1.030 Final Hemoglobin [Presence] in Urine by Automated test strip 08/06/2024 09:20:00 Negative Negative Final pH, Urine 08/06/2024 09:20:00 6.5 5.0-7.5 (Units) Final Protein [Mass/volume] in Urine by Automated test strip 08/06/2024 09:20:00 Negative Negative (mg/dL) Final Urobilinogen [Mass/volume] in Urine by Automated test strip 08/06/2024 09:20:00 Normal Normal (mg/dL) Final Nitrite [Presence] in Urine by Automated test strip 08/06/2024 09:20:00 Negative Negative Final Leukocyte esterase [Presence] in Urine by Automated test strip 08/06/2024 09:20:00 Large Abnormal Negative Final RBC, Urine 08/06/2024 09:20:00 0-2 0-2 (/HPF) Final WBC, Urine 08/06/2024 09:20:00 50+ Abnormal 0-2 (/HPF) Final Bacteria [#/area] in Urine sediment by Microscopy high power field 08/06/2024 09:20:00 >200 Abnormal 0-25 (/HPF) Final Hyaline casts, Urine 08/06/2024 09:20:00 1-4 Abnormal None (/LPF) Final Leukocyte clumps [#/area] in Urine sediment by Microscopy high power field 08/06/2024 09:20:00 Present Abnormal None (/HPF) Final [facility] 08/06/2024 09:20:00 Final Quantitative urine culture t o be performed Performing Location [facility]ORY [facility] - [facility] [address] [place] [facility] [address]
--- OUTSIDE RECORDS SUMMARY | 2024-08-08 16:50 | External Medical Summary | Summary of Care ---
Author Name Unknown Organization [facility] Address [address] [place] [address] Phone [phone] Care Team Providers Care Comber Tender Name Role Phone Verónica Benavides MD Primary Care Provide r Reason for Visit * Reason Onset Date Comments [facility]: Maintenance 08/06/2024 Encounter Details Date Type Department Care Team (Late st Contact Info) Description 08/06/2024 9:45 AM EST Scheduled Telephone [facility], [facility] [address] [place] [address] [facility], Nurse [facility] [address] [place] [address] Allergies Active Allergy Reactions Criticality Noted Date Comments Adhesive Tape Medium 01/30/2022 Ibuprofen Hives 01/13/2012 Aspirin Hives,Rash 09/15/2000 Sulfamethoxazole-Trimeth oprim Nausea/vomiting,Othe r (Please comment) 10/27/2020 Dizziness Ciprofloxacin Hcl 06/16/2019 Hoarse, dizzy,disoriented Morphine 09/21/2021 Blacked out Penicillins Hives,Rash 09/15/2000 Prednisone 12/30/2017 Weakness/memory changes/blurred vision documented as of this encounter (statuses as of 08/06/2024) Medications Danya meléndez/Device Kit Use up to [...] 1 05/30/20 23 Active OneTouch Delica Plus [id number] ns:Type 2 diabetes mellitus with hemoglobin A1c goal of less than 8.0% ([facility]) Test up to two times daily or as directed by [facility] pharmacist 200 Each 3 07/11/20 [...] XL)Indications:Non -ischemic cardiomyopathy (HCC),Coronary artery disease involving [place] coronary [...] heart failure managing provider. 1 Each 07/23/20 24 Active Torsemide 100 MG Oral Tablet (Demadex) [...] Assessment & Plan (08/29/2021 1:27 PM EST): [facility] Triage Call: Reviewed [...] Assessment & Plan (01/14/2022 1:57 PM EDT): [facility] Call: I'm not sure who Dr [...] Assessment & Plan (08/29/2021 1:21 PM EST): [facility] Triage Call: Based on what is described [...] of [place] heart without angina pectoris 07/03/2012 Overview (07/03/2012): [...] mRNA, LNP-s, No Pre serve, 2-Dose Series ([employer]) 08/29/2021,10/23/2020,10/02/2020 COVID-19, MRNA-LNP, PF, 30 M CG/0.3 mL, 12 YRS AND ABOVE, IM ([employer]-Comirnat) 08/04/2023 Covid-19, Mrna, Lnp-s, Pf, B ivalent, 30 Mcg, IM, 12 yrs and above ([employer]) 08/02/2022 Influenza, Whole Virus 08/07/2000 Pneumococcal Conjugate [...] Telephone Encounter - Janiya Cárdenas RN - 08/06/2024 11:54 AM EST [facility] Telephonic Nurse Follow-Up Call [facility] Subprogram: Primary Care at Home Follow Up Call Type: Routine follow up call / Status Check Acute issue requiring follow-up call: Other: urine specimen / How is pt doing on increased dose of Torsemide. Objective: 07/30/2024 1:45 PM 07/23/2024 12:45 PM 07/18/2024 1:26 PM 06/21/2024 12:23 PM 2024 2:29 PM VITALS ACROSS ENCOUNTERS BP 112/78 120/72 130/60 110/60 108/64 Pulse 72 71 72 80 Weight 105.2 kg 108 kg BMI 43.84 kg/m2 44.99 kg/m2 Remote Patient Monitoring: NONE - CH ordered Oxygen Needs: NO supplemental oxygen needs identified DME Needs: NO DME needs identified Medications: No medication or dose adjustments made during acute episode Subjective: Condition Status: [facility] Current Concerns: Call placed to dtonesimo Arcos. No answer. Chart reviewed. Noted urine specimen dropped off this am by pt's dtr oJsselyn. Results pending. Phone call scheduled for tomorrow for specimen follow up Disposition: Follow up call scheduled for tomorrow with [employer] Protozoologist Future Visits Scheduled: Future Appointments-next 60 days Date/Time Provider Specialty Dept Phone 08/07/2024 8:45 AM [facility], Nurse [facility] [phone] 08/23/2024 12:30 PM Destiny Schultz, RN [facility] [phone] 09/16/2024 3:00 PM Brandt Santacruz PA-C [facility] [phone] 10/01/2024 1:00 PM Kusum Jones CRNP Family Medicine [phone] 10/13/2024 11:30 AM Chandler Pena MD Urology [phone] 11/24/2024 1:40 PM (Arrive by 1:25 PM) Sheryl Pena PA-C Dermatology [phone] 04/18/2025 1:20 PM Verónica Benavides MD Family Medicine [phone] Janiya Cárdenas RN documented in this encounter Plan of Treatment Upcoming Encounters Date Type Department Care Team (Late st Contact Info) Description 08/07/2024 8:45 AM EST Scheduled Telephone [facility], [address] [place] [address] [facility] Nurse [address] [place] [address] 08/23/2024 12:30 PM EST [facility] [address] [place] [address] Destiny Schultz, POPPY [address] [place] [address] [place] [address] 09/16/2024 3:00 PM EST [facility] Visit [facility], [facility] [address] [place] [address] Brandt Santacruz PA-C [address] [place] [address] 10/01/2024 1:00 PM EST Telemedicine Family Medicine [address] [place] [phone] Kusum Jones CRNP [address] [place] [address] [place] [address] 10/13/2024 11:30 AM EST Telemedicine Urology, [facility] 132 [facility] [place] [address] Chandler Pena MD [address] [place] [address] 11/24/2024 1:40 PM EDT Office Visit Dermatology [address] [place] [address] Sheryl Pena PA-C [address] [place] [address] [place] [address] 04/18/2025 1:20 PM EDT Telemedicine Family Medicine [address] [place] [phone] Verónica Benavides MD [address] [place] [address] [place] [address] Health Maintenance Due Date Last Done Comments [...] Additional history exists CKD PHOS USE SMARTSET 30592 05/05/202504/25, 04/30/2024, 04/02/2024, Additional history exists CKD HGB USE SMARTSET 10522 08/04/202508/04, 08/04/2024, 05/26/2024, Additional history exists Pneumococcal [...] Documents on File Type Date Recorded Patient Physician Relations Specialist Expl anation Advance Directives and Living Will 08/10/2021 ADVANCE DIRECTIVE / LIVING WILL LIVING WILL Healthcare Agents on File Name Relationship Healthcare Agent Relationshi p Communication Josselyn Judd Adult Child Health Care Power of Attor nathalie Care Teams Comber Tender Relationship Specialty Start Date End Date Verónica Benavides MD [address] [place] [address] [place] [phone] PCP - General Family Medicine 09/16/14 documented as of this encounter
--- OUTSIDE RECORDS SUMMARY | 2024-08-08 16:50 | External Medical Summary | Summary of Care ---
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 External Alarm Settings Standard per protocol Comments Primary Firer Boiler: nevin Barcenas Is the patient already enrolled with another [facility] device/service? (If no, will need to "push the button") No Does the patient have a physical address? (If no, provide physical address if requesting device) Yes Requested Devices/IVR: Requested Device(s): Scale Please specify if patient needs tray or patient is over 300 lbs: No Does the patient need a tray? (Used is patient does not have hard surface for scale) No Heart Failure IVR (Interactive Voice Response) Frequency (Default: Weekly-M/W/F) Time: Anytime Device triggered (default) OR Specific Time: N/A Requested Device(s): Blood pressure Cuff Size: medium Target goal BP (eg less than 130/80): 130/80 High and Low Limits for Systolic AND Diastolic readings: Systolic Low 90 Systolic High 180 Diastolic Low 50 Diastolic High 100 Frequency of BP checks (eg, BID, daily, etc): Daily Begin Date: 08/05/2024 End Date (must be reevaluated at 8 weeks): 08/05/2024 + 8 weeks Requested Device(s): Pulse Oximeter Target range that will be used in [facility] as default is 95-100. 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 [facility] Comments Is Patient homebound? Yes All sections [...] on the next service day for the [facility] Home Phlebotomy does not service every geographical location on a daily basis. Contact [facility] Client Services at to find out service days for a specific location. Medical Laboratory [address] [place] [id number] Dillan Davis M.D. Director and Photo Manager Patient Name: Regla Castano : 1935 Sex: female Address [address] [place] [id number] Provider: @REF@? Verónica Benavides MD? Diagnosis: No diagnosis found. Tests Requested BMP one week Reason for Visit * Reason Onset Date Comments [facility]: Maintenance 08/05/2024 Encounter Details Date Type Department Care Team (Late st Contact Info) Description 08/05/2024 Telephone [facility], [facility] [address] [place] [address] Luz Jacob CRNP [address] [place] [address] [facility]: Maintenance Allergies Active Allergy Reactions Criticality Noted Date Comments Adhesive Tape Medium 01/30/2022 Ibuprofen Hives 01/13/2012 Aspirin Hives,Rash 09/15/2000 Sulfamethoxazole-Trimeth oprim Nausea/vomiting,Othe r (Please comment) 10/27/2020 Dizziness Ciprofloxacin Hcl 06/16/2019 Hoarse, dizzy,disoriented Morphine 09/21/2021 Blacked out Penicillins Hives,Rash 09/15/2000 Prednisone 12/30/2017 Weakness/memory changes/blurred vision documented as of this encounter (statuses as of 08/05/2024) Medications OneTouch Verio w/Device Kit Use up [...] Strip 1 023 Active OneTouch Delica Plus [id number] ons:Type 2 diabetes mellitus with hemoglobin A1c goal of less than 8.0% ([facility]) Test up to two times daily or as directed by [facility] pharmacist 200 Each 3 023 [...] and 1 Capsule before bedtime. 60 Capsule Active Magnesium Oxide 400 MG Oral Tablet Take 1 Tablet by mouth in the morning. 30 Tablet Active Polyethylene Glycol 3350 17 GM/SCOOP Oral Powder (MiraLax) Take 17 g by mouth in the morning. Dissolve one heaping tablespoon in 8 ounces of water or juice.. 255 g Active Probiotic Acidophilus BioBeads Oral Capsule Take [...] XL)Indications:No n-ischemic cardiomyopathy (HCC),Coronary artery disease involving tribe coronary artery of tribe heart without angina pectoris,HTN, goal below 140/90 Take 1 Tablet by mouth every evening. 90 Tablet 1 024 Active Mirabegron ER 25 MG Oral Tablet Extended Release 24 Hour (Myrbetriq) Take 1 Tablet by mouth in the morning. 90 Tablet 3 024 Active Colchicine 0.6 MG Oral Tablet Take 1 Tablet by mouth 2 times a day as needed (GOUT). Active Promethazine-DM 6.25-15 MG/5ML Oral Syrup Take by mouth 4 times a day as needed for Cough. Active Nitrofurantoin Monohyd Macro 100 MG Oral Capsule (Macrobid) Take 1 Capsule by mouth every night at bedtime. 09/27/2 024 Active Clotrimazole 1 % External Cream [...] Tablet before bedtime. 60 Tablet 1 Active Torsemide 20 MG Oral Tablet (Demadex) Take 4 Tablets by mouth in the morning and 4 Tablets in the evening. 024 2023 Discontinued documented as of this encounter (statuses as of 08/05/2024) Active Problems Problem Noted Date Diagnosed Date [...] Assessment & Plan (08/29/2021 1:27 PM EST): [facility] Triage Call: Reviewed [...] Assessment & Plan (01/14/2022 1:57 PM EDT): [facility] Call: I'm not sure who Dr [...] Assessment & Plan (08/29/2021 1:21 PM EST): [facility] Triage Call: Based on what is [...] Continue synthroid Coronary artery disease invo lving tribe coronary artery of tribe heart without angina pectoris 07/03/2012 Overview [...] as of this encounter (statuses as of 08/05/2024) Resolved Problems Problem Noted Date Diagnosed Date [...] as of this encounter (statuses as of 08/05/2024) Immunizations Name Administration Dates Next Due COVID-19 mRNA, LNP-s, No Pre serve, 2-Dose Series ([employer]) 08/29/2021,10/23/2020,10/02/2020 COVID-19, MRNA-LNP, PF, 30 M CG/0.3 mL, 12 YRS AND ABOVE, IM ([employer]) 08/04/2023 Covid-19, Mrna, Lnp-s, Pf, B ivalent, 30 Mcg, IM, 12 yrs and above ([employer]) 08/02/2022 Influenza, Whole Virus 08/07/2000 Pneumococcal [...] encounter Miscellaneous Notes * Addendum Note - Luz Jacob CRNP - 08/05/2024 3:35 PM ESTAddended by: LUZ JAOCB on: 08/05/2024 03:35 PM Modules accepted: Orders * Telephone Encounter - Luz Jacob CRNP - 08/05/2024 3:34 PM EST RPM ordered. Also, I sent new rx for torsemide 100mg tabs. * Telephone Encounter - Janiya Cárdenas RN - 08/05/2024 2:48 PM EST Call placed to pt's dtr Josselyn. Made her aware of lab results and recommendation from Luz FELDMAN. Josselyn is agreeable to increasing the pt's Torsemide to 100 mg BID. Advised to monitor for lightheadedness or dizziness. Per Yary, OT was at the home today and noted pt LE with increased edema. OT unable to get pt steady on the scale but reading was 234.0 Lbs today which Yary questioned the validity of due to how pt was weighed today. Yary also reports that the pt is showing some s/s of a UTI. Reports urine cloudy and foul smelling today. Denies burning on urination, urgency or frequency. Pt is afebrile. Yary states that she has a urine specimen container. Will collect and drop off at lab tonight to tomorrow am. Urine specimen order placed. FC call scheduled for 24/48 hr follow up * Telephone Encounter - Luz Jacob CRNP - 08/05/2024 1:48 PM EST Intake--please notify pt dgt that her CBC and CMP are stable. BNP is significantly elevated from prior. Per phone note from yesterday, pt feeling well, HH RN reported lungs clear, SpO2 dropping when on RA (I believe this is new since rehab d/c) Wt 231.4lb. Her CXR from 08/02 showed increased vascular congestion. Recently completed DTP 07/31 with metolazone and took metolazone 07/23. I am wonderingif her dry wt is possibly a little lower than 231lb. Please see if they are willing to increase torsemide to 100mg BID and request dgt monitor BP (Or have HH check BP early next week or sooner if shedevelops dizziness. I have placed order for repeat BMP one week. JUNIOR Dixon BP Readings from Last 4 Encounters: 07/30/24 112/78 07/23/24 120/72 07/18/24 130/60 06/21/24 110/60 ][ Component Latest Ref Rng 08/29/2021 05/24/2022 08/04/2024 BNP, NT-Pro <300 pg/mL 318 (H) 380 (H) 3,471 (H) Component Latest Ref Rng 05/05/2024 05/07/2024 05/26/2024 08/04/2024 WBC 4.00 - 10.80 K/uL 6.65 9.52 7.42 6.68 RBC 3.85 - 5.15 M/uL 2.33 2.24 2.47 2.37 HGB 12.0 - 15.3 g/dL 9.0 (L) 8.6 (L) 9.6 (L) 9.1 (L) HCT 36.0 - 45.2 % 28.3 (L) 26.9 (L) 30.5 (L) 29.0 (L) MCV 81.5 - 97.5 fL 121.5 120.1 123.5 122.4 MCH 27.0 - 34.0 pg 38.6 38.4 38.9 38.4 MCHC 32.0 - 36.0 g/dL 31.8 32.0 31.5 31.4 RDW 11.5 - 15.5 % 14.4 14.2 14.6 14.0 PLT 140 - 400 K/uL 363 340 338 379 MPV 6.6 - 11.1 fL 9.8 9.9 10.0 10.3 Component Latest Ref Rng 05/26/2024 2024 08/04/2024 BUN 6 - 20 mg/dL 21 (H) 19 25 (H) CREATININE 0.5 - 1.0 mg/dL 1.0 0.9 1.0 EGFR >=60 mL/min 57 (L) 62 55 (L) SODIUM 135 - 146 mmol/L 138 140 137 POTASSIUM 3.5 - 5.1 mmol/L 4.2 3.7 3.9 CHLORIDE 98 - 107 mmol/L 102 101 97 (L) CO2 22 - 32 mmol/L 25 26 27 ANION GAP 7 - 15 mmol/L 11 13 13 GLUCOSE 70 - 120 mg/dL 151 (H) 214 (H) 211 (H) Albumin 3.8 - 5.0 g/dL 3.6 (L) 3.8 AST 10 - 35 U/L 16 13 Alkaline Phosphatase 35 - 130 U/L 94 81 Bilirubin, Total <=1.2 mg/dL 0.3 0.3 CALCIUM 8.4 - 10.2 mg/dL 8.6 8.1 (L) 9.1 Protein 6.0 - 8.3 g/dL 6.2 6.5 ALT 10 - 35 U/L 6 (L) 8 (L) Legend: (H) High (L) Low Legend: (L) Low documented in this encounter Plan of Treatment Upcoming Encounters Date Type Department Care Team (Late st Contact Info) Description 08/06/2024 9:45 AM EST Scheduled Telephone [facility], [facility] [address] [place] [address] [facility], Nurse [place] [address] [place] [address] 08/07/2024 8:45 AM EST Scheduled Telephone [facility], [facility] [place] [address] [facility], Nurse [facility] [place] [address] 08/23/2024 12:30 PM EST Home Visit [facility], [facility] 132 [facility] [place] [address] Nevin Schultz RN 132 [facility] [place] [address] 09/16/2024 3:00 PM EST Home Visit [facility], [address] [place] [address] Brandt Santacruz PA-C 132 [facility] [place] [address] 10/01/2024 1:00 PM EST Telemedicine Family Medicine [address] [place] [phone] Kusum Jones [address] [place] [address] 10/13/2024 11:30 AM EST Telemedicine Urology, [facility] [place] [address] Chandler Pena MD [address] [place] [address] 11/24/2024 1:40 PM EDT Office Visit Dermatology [address] [place] [address] Sheryl Pena PA-C [address] [place] [address] [place] [address] 04/18/2025 1:20 PM EDT Telemedicine Family Medicine [address] [place] [phone] Verónica Benavides MD [address] [place] [address] [place] [address] Scheduled Orders Name Type Priority Associated Diagnoses Orde r Schedule BASIC METABOLIC PANEL Lab Routine 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) Expected: 08/05/2024 (Approximate), Expires: 08/05/2025 URINALYSIS, REFLEX TO CULTURE (NOT FOR NEUTROPENIC PATIENTS) Lab Routine UTI (urinary tract infection) Expected: 08/05/2024, Expires: 08/05/2025 Scheduled Referrals Name Type Priority Associated Diagnoses Orde r Schedule HOME PHLEBOTOMY REFERRAL OP Referral Within 3 days (urgent) 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) Ordered: 08/05/2024 REMOTE PATIENT MONITORING REFERRAL Referral Within 3 days (urgent) 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) Ordered: 08/05/2024 Health Maintenance Due Date Last Done Comments [...] Additional history exists CKD PHOS USE SMARTSET 69130 05/05/202504/25, 04/30/2024, 04/02/2024, Additional history exists CKD HGB USE SMARTSET 81416 08/04/202508/04, 08/04/2024, 05/26/2024, Additional history exists Pneumococcal [...] pacemaker in situ Coronary artery disease involving tribe coronary artery of tribe heart without angina pectoris Hypertensive heart [...] kidney disease (HCC)- Primary UTI (urinary tract infection)- Primary Urinary tract infection, site not specified 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 Rodger Judd Adult Child Health Care Power of Attor nathalie Care Teams Director Of Hotel Operations Relationship Specialty Start Date End Date Verónica Benavides MD [address] [place] [address] [place] [address] PCP - General Family Medicine 09/16/14 documented as of this encounter
--- OUTSIDE RECORDS SUMMARY | 2024-08-08 16:50 | External Medical Summary ---
Author Name Unknown Address Unknown Organization [id number]:[facility] [place] [address] [facility] [address] Laboratory Report Ordering Provider Test Date Status ELIZABETH DOMINGUEZ 08/06/2024 09:20:00 Preliminary <10,000 colonies/ml mixed no rmal rachid Observation Date Value Abnormality Reference (Units ) Status Bacteria identified in Specimen by Culture 08/06/2024 09:20:00 [id number]^ESCH ERICHIA COLI ESBL Abnormal Preliminary >100,000 colonies/mL Escheri dianne coli ESBL producing organism, This patient may require isolation.
This gram negative bacilli displays in vitro resistance to multiple antibiotics. This patient may require isolation. Carbapenem use is preferred. Contact infectious disease service for further recommendations. Performing Location [facility] [address] [facility] [address] Ordering Provider Test Date Status ELIZABETH DOMINGUEZ 08/06/2024 09:20:00 Preliminary Observation Date Value Abnormality Reference (Units ) Status Ampicillin 08/06/2024 09:20:00 >=32 Resistant Preliminary Ampicillin + Sulbactam 08/06/2024 09:20:00 4 Susceptible Preliminary Cefazolin 08/06/2024 09:20:00 >=64 Resistant Preliminary Cefepime susceptibility 08/06/2024 09:20:00 Preliminary Pending cefOXitin [Susceptibility] 08/06/2024 09:20:00 16 Int ermediate Preliminary Ceftriaxone suceptibility 08/06/2024 09:20:00 >=64 Resi stant Preliminary Ciprofloxacin 08/06/2024 09:20:00 0.5 Intermediate Preliminary Due to serious side effects, the FDA has advised against using Ciprofloxacin to treat uncomplicated UTIs and respiratory tract infections unless there are no alternative treatment options. Gentamicin susceptibility 08/06/2024 09:20:00 <=1 Susc eptible Preliminary Levofloxacin susceptibility 08/06/2024 09:20:00 1 In termediate Preliminary Due to serious side effects, the FDA has advised against using Levofloxacin to treat uncomplicated UTIs and respiratory tract infections unless there are no alternative treatment options. Meropenem [Susceptibility] 08/06/2024 09:20:00 <=0.25 Katie ceptible Preliminary Nitrofurantoin susceptibility 08/06/2024 09:20:00 256 Resistant Preliminary Piperacillin + Tazobactamsusceptibility 08/06/2024 09:20:00 <=4 Susceptible Preliminary TMP-SMZ susceptibility 08/06/2024 09:20:00 <=20 Suscept ible Preliminary Test: Culture, Urine, Quanti tative
Specimen Source: Urine, Unspecified
Specimen Type: Urine
Specimen Date: 08/06/[id number]
Result Date: 08/08/20241043
Result Status: Preliminary result
Abnormal: Yes
Resulting Lab: [facility]
[address]
[facility] [address]

CULTURE

>100,000 colonies/mL Escherichia coli ESBL producing [...]
METHOD MICROBROTH DILUTIONS

AMPICILLIN >=32 Resistant
AMPICILLIN/SULBACTAM 4 Susceptible
CEFAZOLIN >=64 Resistant
CEFEPIME -- -- [1]
CEFOXITIN 16 Intermediate
CEFTRIAXONE >=64 Resistant
CIPROFLOXACIN 0.5 Intermediate
[2]
GENTAMICIN <=1 Susceptible
LEVOFLOXACIN 1 Intermediate
[3]
MEROPENEM <=0.25 Susceptible
NITROFURANTOIN 256 Resistant
PIPERACILLIN TAZOBACTAM <=4 Susceptible
TRIMETH/SULFAMETHOXAZOLE <=20 Susceptible

[1] Pending

[2] Due to serious side effects, the FDA has advised against using
Ciprofloxacin to treat uncomplicated UTIs and respiratory tract infections
unless there are no alternative treatment options.

[3] Due to serious side effects, the FDA has advised against using
Levofloxacin to treat uncomplicated UTIs and respiratory tract infections
unless there are no alternative treatment options.

null Performing Location [facility] [place] [address] [facility] [address]
--- OUTSIDE RECORDS SUMMARY | 2024-08-08 16:50 | External Medical Summary | Summary of Care ---
Author Name Unknown Organization [facility] Address [address] [place] [address] Phone [phone] Care Team Providers Care Bowling Alley Manager Name Role Phone Verónica Benavides MD Primary Care Provide r Reason for Visit * Reason Comments Outpatient Testing Encounter Details Date Type Department Care Team (Late st Contact Info) Description 08/06/2024 9:20 AM EST Laboratory Laboratory [address] [place] [phone] , Specimen Drop Off [address] [place] [address] UTI (urinary tract infection) Allergies Active Allergy [...] 1 05/30/20 23 Active OneTouch Delica Plus [id number] ns:Type 2 diabetes mellitus with hemoglobin A1c goal of less than 8.0% ([facility]) Test up to two times daily or as directed by [facility] pharmacist 200 Each 3 07/11/20 23 [...] XL)Indications:Non -ischemic cardiomyopathy (HCC),Coronary artery disease involving barrow coronary [...] Assessment & Plan (08/29/2021 1:27 PM EST): [facility] Triage Call: Reviewed last C&S [...] Assessment & Plan (01/14/2022 1:57 PM EDT): [facility] Call: I'm not sure who [...] Assessment & Plan (08/29/2021 1:21 PM EST): [facility] Triage Call: Based on what [...] of barrow heart without angina pectoris 07/03/2012 Overview (07/03/2012): [...] mRNA, LNP-s, No Pre serve, 2-Dose Series ([employer]) 08/29/2021,10/23/2020,10/02/2020 COVID-19, MRNA-LNP, PF, 30 M CG/0.3 mL, 12 YRS AND ABOVE, IM ([employer]) 08/04/2023 Covid-19, Mrna, Lnp-s, Pf, B ivalent, 30 Mcg, IM, 12 yrs and above ([employer]) 08/02/2022 Pneumococcal Conjugate Vacc, 13 Valent (Prevnar) [...] Upcoming Encounters Date Type Department Care Team ([facility] st Contact Info) Description 08/06/2024 9:45 AM EST Scheduled Telephone [facility], [address] [place] [address] [facility], Nurse [address] [place] [address] 08/07/2024 8:45 AM EST Scheduled Telephone [facility], [place] [address] [place] [address] [facility] Nurse [address] [place] [address] 08/23/2024 12:30 PM EST Home Visit [facility], [facility] [address] [place] [address] Destiny Schultz RN 132 [facility] [place] [address] 09/16/2024 3:00 PM EST Home Visit [facility], [facility] Brandon Fre[address] [place] [address] Brandt Santacruz PA-C [address] [place] [address] 10/01/2024 1:00 PM EST Telemedicine Family Medicine [address] [place] [phone] Kusum Jones CRNP [address] [place] [address] [place] [address] 10/13/2024 11:30 AM EST Telemedicine Urology, [facility] [place] [address] Chandler Pena MD [address] [place] [address] 11/24/2024 1:40 PM EDT Office Visit Dermatology [address] [place] [address] Sheryl Pena PA-C [address] [place] [address] [place] [address] 04/18/2025 1:20 PM EDT Telemedicine Family Medicine [address] [place] [phone] Verónica Benavides MD [address] [place] [address] [place] [address] Pending Results Name Type Priority Associated Diagnoses [...] Additional history exists CKD PHOS USE SMARTSET 01146 05/05/202504/25, 04/30/2024, 04/02/2024, Additional history exists CKD HGB USE SMARTSET 14299 08/04/202508/04, 08/04/2024, 05/26/2024, Additional history exists Pneumococcal [...] 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 Hypertensive heart and [...] less than 8.0% ([facility]) Drug-induced constipation Other constipation Gastroesophageal reflux [...] on File Type Date Recorded Patient Client Services Assistant Expl anation Advance Directives and Living Will 08/10/2021 ADVANCE DIRECTIVE / LIVING WILL LIVING WILL Healthcare Agents on File Name Relationship Healthcare Agent [facility] Rodger Judd [facility] Power of Attor nathalie Care Teams Bowling Alley Manager Relationship Specialty Start Date End Date Verónica Benavides MD [address] [place] [address] [place] [address] PCP - General Family Medicine 09/16/14 documented as of this encounter
--- OUTSIDE RECORDS SUMMARY | 2024-08-08 16:50 | External Medical Summary | Summary of Care ---
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 180 Tablet 3 06/29/20 24 Active metOLazone 2.5 MG Oral Tablet (Zaroxolyn) Take one tab only as directed with diuretic titration plan 07/23/20 Active DIURETIC TITRATION PLAN If no improvement on day 3, contact heart failure managing provider. 1 Each 07/23/20 24 Active Torsemide 100 MG Oral Tablet (Demadex) Take 1 Tablet by mouth in the morning and 1 Tablet before bedtime. 60 Tablet 1 08/05/20 24 Active Myrbetriq 25 MG Oral Tablet Extended Release 24 Hour (Mirabegron ER) Take 1 Tablet by mouth in the morning. 90 Tablet 3 08/06/20 24 Active documented as of this encounter [...] Assessment & Plan (08/29/2021 1:27 PM EST): [facility] Triage Call: Reviewed last [...] Assessment & Plan (01/14/2022 1:57 PM EDT): [facility] Call: I'm not sure [...] Assessment & Plan (08/29/2021 1:21 PM EST): [facility] Triage Call: Based on what [...] of wiyot heart without angina pectoris 07/03/2012 Overview (07/03/2012): [...] mRNA, LNP-s, No Pre serve, 2-Dose Series ([employer]) 08/29/2021,10/23/2020,10/02/2020 COVID-19, MRNA-LNP, PF, 30 M CG/0.3 mL, 12 YRS AND ABOVE, IM ([employer]-Comirnat[employer]IDIP) 08/04/2023 Covid-19, Mrna, Lnp-s, Pf, B ivalent, 30 Mcg, IM, 12 yrs and above ([employer]) 08/02/2022 Pneumococcal Conjugate Vacc, 13 Valent (Prevnar) [...] No 2024 Does the household have a [facility] source of income? (Household - for ages [...] as of this encounter Progress Notes * Yarely Cespedes OSA - 08/06/2024 3:26 PM EST Patient has been successfully enrolled to the [id number] [facility] program and will be provided with the NEON Concierge Wearable device to facilitate their participation in remote monitoring: BP O2 Scale Patient has been oriented to remote patient monitoring by their Straw[employer] Inspector [employer] Packer. The special education case manager has also provided the patient with instruction and education regarding the program. Current health to assist with initial device set-up. Delivery Method: Vendor supplied Patient understands that this monitoring should not be used as a replacement for emergency and/or urgent care. If patient experiences any urgent symptoms, they are aware to call their manager car for additional instructions. In emergency situations, they will either call 911 or report directly to the ED for further evaluation. documented in this encounter Plan of Treatment Upcoming Encounters Date Type Department Care Team (Late st Contact Info) Description 08/07/2024 8:45 AM EST Scheduled Telephone [facility] [place], [facility] [address] [facility] [place] [address] [facility], Nurse [facility] [address] [facility] [place] [address] 08/11/2024 7:00 AM EST Laboratory Lab Mobile Phlebotomy [facility] [address] [facility] [place] [address] [facility], Gml Mobile Home Draw [address] [facility] [place] [address] 08/23/2024 12:30 PM EST Home Visit [facility], [facility] [address] [facility] [place] [address] Destiny Schultz, POPPY [address] [facility] [place] [address] 09/16/2024 3:00 PM EST Home Visit [facility] [place], [facility] [address] [facility] [place] [address] Brandt Santacruz PA-C [address] [facility] [place] [address] 10/01/2024 1:00 PM EST Telemedicine Family Medicine [address] [place] [phone] Kusum Jones CRNP [address] [place] [address] [place] [address] 10/13/2024 11:30 AM EST Telemedicine Urology, [facility] [address] [facility] [place] [address] Chandler Pena MD [address] [place] [address] 11/24/2024 1:40 PM EDT Office Visit Dermatology [address] [place] [address] Sheryl Pena PA-C [address] [place] [address] [place] [address] 04/18/2025 1:20 PM EDT Telemedicine Family Medicine [address] [place] [phone] Verónica Benavides MD [address] [place] [address] [place] [address] Health Maintenance Due Date Last Done Comments [...] Additional history exists CKD PHOS USE SMARTSET 36240 05/05/202504/25, 04/30/2024, 04/02/2024, Additional history exists CKD HGB USE SMARTSET 73536 08/04/202508/04, 08/04/2024, 05/26/2024, Additional history exists Pneumococcal [...] pacemaker in situ Coronary artery disease involving wiyot coronary artery of wiyot heart without angina pectoris Hypertensive heart and [...] stage 3a chronic kidney disease (HCC)- Primary 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)- Primary documented in this encounter Additional Health Concerns Infection Onset Date Last Indicated Resolved Time ESBL 06/07/2024 06/07/2024 08/06/2024 12:1 9 AM EST documented as of this encounter Advance Directives Documents on File Type Date Recorded Patient Front Office Agent Expl anation Advance Directives and Living Will 08/10/2021 ADVANCE DIRECTIVE / LIVING WILL LIVING WILL Healthcare Agents on File Name Relationship Healthcare Agent [facility] Communication Josselyn Judd [facility] Health Care Power of Attor nathalie Care Teams Utility Service Worker Relationship Specialty Start Date End Date Verónica Benavides MD [address] [place] [address] [place] [address] PCP - General Family Medicine 09/16/14 documented as of this encounter
--- OUTSIDE RECORDS SUMMARY | 2024-08-08 16:50 | External Medical Summary | Summary of Care ---
Author Name Unknown Organization [facility] Address [address] [place] [address] Phone [phone] Care Team Providers Care Liquor Blender Name Role Phone Verónica Benavides MD Primary Care Provide r Reason for Visit * Reason Onset Date Comments [facility]: Maintenance 08/06/2024 Encounter Details Date Type Department Care Team (Late st Contact Info) Description 08/06/2024 9:45 AM EST Scheduled Telephone [facility], [facility] [address] [place] [address] [facility], Nurse [facility] [address] [place] [address] Allergies Active Allergy Reactions Criticality Noted Date [...] TIMES DAILY 400 Strip 1 023 Active KnewtonTouch Delica Plus [id number] ons:Type 2 diabetes mellitus with hemoglobin A1c goal of less than 8.0% ([facility]) Test up to two times daily or as directed by [facility] pharmacist 200 Each 3 023 Active Estrogens [...] XL)Indications:No n-ischemic cardiomyopathy (HCC),Coronary artery disease involving nondalton coronary [...] Tablet before bedtime. 60 Tablet 1 Active Mirabegron ER 25 MG Oral Tablet [...] Assessment & Plan (08/29/2021 1:27 PM EST): [facility] Triage Call: Reviewed last C&S [...] Assessment & Plan (01/14/2022 1:57 PM EDT): [facility] Call: I'm not sure who [...] Assessment & Plan (08/29/2021 1:21 PM EST): [facility] Triage Call: Based on what is [...] of nondalton heart without angina pectoris 07/03/2012 Overview (07/03/2012): [...] mRNA, LNP-s, No Pre serve, 2-Dose Series ([employer]) 08/29/2021,10/23/2020,10/02/2020 COVID-19, MRNA-LNP, PF, 30 M CG/0.3 mL, 12 YRS AND ABOVE, IM ([employer]) 08/04/2023 Covid-19, Mrna, Lnp-s, Pf, B ivalent, 30 Mcg, IM, 12 yrs and above ([employer]) 08/02/2022 Influenza, Whole Virus 08/07/2000 Pneumococcal Conjugate [...] Cárdenas RN - 08/06/2024 11:54 AM EST [facility] Telephonic Nurse Follow-Up Call [facility] Subprogram: Primary Care at Home [...] made during acute episode Subjective: Condition Status: [facility] Current Concerns: Call placed to emi Arcos. No answer. Chart reviewed. Noted urine specimen dropped off this am by pt's dtr Josselyn. Results pending. Phone call scheduled for tomorrow for specimen follow up Disposition: Follow up call scheduled for tomorrow with CVIR TECH E Commerce Developer Future Visits Scheduled: Future Appointments-next 60 days Date/Time Provider Specialty Dept Phone 08/07/2024 8:45 AM [facility], Nurse [facility] [phone] 08/23/2024 12:30 PM Destiny Schultz, RN [facility] [phone] 09/16/2024 3:00 PM Brandt Santacruz PA-C [facility] [phone] 10/01/2024 1:00 PM Kusum Jones CRNP Family Medicine [phone] 10/13/2024 11:30 AM Chandler Pena MD Urology [phone] 11/24/2024 1:40 PM (Arrive by 1:25 PM) Sheryl Pena PA-C Dermatology [phone] 04/18/2025 1:20 PM Verónica Benavides MD Family Medicine [phone] Janiya Cárdenas RN documented in this encounter Plan of Treatment Upcoming Encounters Date Type Department Care Team (Late st Contact Info) Description 08/07/2024 8:45 AM EST Scheduled Telephone [facility], [address] [place] [address] [facility], Nurse [facility] [address] [facility] [place] [address] 08/23/2024 12:30 PM EST [facility] [address] [facility] [place] [address] Destiny Schultz, RN [address] [place] [address] 09/16/2024 3:00 PM EST Home Visit [facility], [facility] [address] [place] [address] Brandt Santacruz PA-C [address] [place] [address] 10/01/2024 1:00 PM EST Telemedicine Family Medicine [address] [place] [phone] Kusum Jones CRNP [address] [place] [address] [place] [address] 10/13/2024 11:30 AM EST Telemedicine Urology, [facility] [place] [address] Chandler Pena MD [address] [place] [address] 11/24/2024 1:40 PM EDT Office Visit Dermatology [address] [place] [address] Sheryl Pena PA-C [address] [place] [address] [place] [address] 04/18/2025 1:20 PM EDT Telemedicine Family Medicine [address] [place] [phone] Verónica Benavides MD [address] [place] [address] [place] [address] Health Maintenance Due Date Last Done Comments [...] Additional history exists CKD PHOS USE SMARTSET 09442 05/05/202504/25, 04/30/2024, 04/02/2024, Additional history exists CKD HGB USE SMARTSET 98961 08/04/202508/04, 08/04/2024, 05/26/2024, Additional history exists Pneumococcal [...] Documents on File Type Date Recorded Patient Flight/Transport Nurse Expl anation Advance Directives and Living Will 08/10/2021 ADVANCE DIRECTIVE / LIVING WILL LIVING WILL Healthcare Agents on File Name Relationship Healthcare Agent Relationshi p Communication Josselyn Judd Adult Child Health Care Power of Attor nathalie Care Teams Liquor Blender Relationship Specialty Start Date End Date Verónica Benavides MD [address] [place] [address] [place] [phone] PCP - General Family Medicine 09/16/14 documented as of this encounter
--- OUTSIDE RECORDS SUMMARY | 2024-08-08 16:51 | External Medical Summary ---
Author Name Unknown Address Unknown Organization K01:[facility] [place] [address] [facility] [address] Laboratory Report Ordering Provider Test Date Status APOLINAR ARMANDO 08/04/2024 10:01:00 Final Observation Date Value Abnormality Reference (Units ) Status SYNC LEUKOCYTES IN BLOOD BY AUTOMATED COUNT 08/04/2024 10:01:00 6.68 4.00-10.80 (K/uL) Final Segs 08/04/2024 10:01:00 54.3 40.0-75.0 (%) Final Lymphs % 08/04/2024 10:01:00 29.2 18.0-42.0 (%) Final Monos 08/04/2024 10:01:00 13.0 Above high normal 1.0-11.0 (%) Final Eosinophils 08/04/2024 10:01:00 1.9 0.0-6.0 (%) Final Basos 08/04/2024 10:01:00 0.7 0.0-2.0 (%) Final Immature Granulocyte, Percent 08/04/2024 10:01:00 0.9 0.0-2.0 (%) Final Absolute Segs 08/04/2024 10:01:00 3.62 1.80-7.70 (K/uL) Final Lymphs, absolute 08/04/2024 10:01:00 1.95 1.00-4.80 (K/ul) Final Monos, Abs 08/04/2024 10:01:00 0.87 0.00-1.10 (K/uL) Final Eos, Abs 08/04/2024 10:01:00 0.13 0.00-0.70 (K/uL) Final Basos, Abs 08/04/2024 10:01:00 0.05 0.00-0.20 (K/uL) Final Immature Granulocytes, Number 08/04/2024 10:01:00 0.06 0.00-0.20 (K/uL) Final Performing Location [facility] [place] [place] [address]
--- OUTSIDE RECORDS SUMMARY | 2024-08-08 16:51 | External Medical Summary | Summary of Care ---
Author Name Unknown Organization [facility] Address [address] [place] [address] Phone [phone] Care Team Providers Care Fine Dining Server Name Role Phone Verónica Benavides MD Primary Care Provide r Reason for Visit * Reason Onset Date Comments [facility]: Maintenance 08/04/2024 Encounter Details Date Type Department Care Team (Late st Contact Info) Description 08/04/2024 10:45 AM EST Scheduled Telephone [facility], [facility] [address] [place] [address] [facility], Nurse [facility] [address] [place] [address] Allergies Active Allergy Reactions Criticality Noted Date Comments Adhesive Tape Medium 01/30/2022 Ibuprofen Hives 01/13/2012 Aspirin Hives,Rash 09/15/2000 Sulfamethoxazole-Trimeth oprim Nausea/vomiting,Othe r (Please comment) 10/27/2020 Dizziness Ciprofloxacin Hcl 06/16/2019 Hoarse, dizzy,disoriented Morphine 09/21/2021 Blacked out Penicillins Hives,Rash 09/15/2000 Prednisone 12/30/2017 Weakness/memory changes/blurred vision documented as of this encounter (statuses as of 08/04/2024) Medications Danya meléndez/Device Kit Use up to [...] long-term current use of insulin ([facility]),Type 2 diabetes mellitus with hemoglobin A1c goal of less than 8.0% ([facility]) TEST UP TO FOUR TIMES DAILY 400 Strip 1 05/30/20 23 Active OneTouch Delica Plus [id number] ns:Type 2 diabetes mellitus with hemoglobin A1c goal of less than 8.0% ([facility]) Test up to two times daily or as directed by [facility] pharmacist 200 Each 3 07/11/20 23 [...] XL)Indications:Non -ischemic cardiomyopathy (HCC),Coronary artery disease involving ione coronary artery of ione heart without angina pectoris,HTN, goal below 140/90 [...] failure managing provider. 1 Each 07/23/20 Active documented as of this encounter (statuses as of 08/04/2024) Active Problems Problem Noted Date Diagnosed Date [...] Assessment & Plan (08/29/2021 1:27 PM EST): [facility] Triage Call: Reviewed last C&S [...] Assessment & Plan (01/14/2022 1:57 PM EDT): [facility] Call: I'm not sure who Dr Dominguez [...] Assessment & Plan (08/29/2021 1:21 PM EST): [facility] Triage Call: Based on what is [...] Continue synthroid Coronary artery disease invo lving ione coronary artery of ione heart without angina pectoris 07/03/2012 Overview (07/03/2012): [...] as of this encounter (statuses as of 08/04/2024) Resolved Problems Problem Noted Date Diagnosed Date [...] as of this encounter (statuses as of 08/04/2024) Immunizations Name Administration Dates Next Due COVID-19 mRNA, LNP-s, No Pre serve, 2-Dose Series ([employer]) 08/29/2021,10/23/2020,10/02/2020 COVID-19, MRNA-LNP, PF, 30 M CG/0.3 mL, 12 YRS AND ABOVE, IM ([employer]Comirnat[employer]) 08/04/2023 Covid-19, Mrna, Lnp-s, Pf, B ivalent, 30 Mcg, IM, 12 yrs and above ([employer]) 08/02/2022 Pneumococcal Conjugate Vacc, 13 Valent (Prevnar) [...] Telephone Encounter - Janiya Cárdenas RN - 08/04/2024 10:25 AM EST [facility] Telephonic Nurse Follow-Up Call [facility] Subprogram: Primary Care at Home Follow Up Call Type: Routine follow up call / Status Check Acute issue requiring follow-up call: Other: Follow up on SOB, O2 sat readings Objective: 07/30/2024 1:45 PM 07/23/2024 12:45 PM 07/18/2024 1:26 PM 06/21/2024 12:23 PM 2024 2:29 PM VITALS ACROSS ENCOUNTERS BP 112/78 120/72 130/60 110/60 108/64 Pulse 72 71 72 80 Weight 105.2 kg 108 kg BMI 43.84 kg/m2 44.99 kg/m2 Remote Patient Monitoring: NONE Oxygen Needs: NO supplemental oxygen needs identified DME Needs: Nebulizer machine and supplies Medications: Current DTP: Other: Daughter gave 1/2 of Metolazone instead of full tablet. "It hits her too hard and she gets weak" Subjective: Condition Status: Symptoms resolved and back to baseline Current Concerns: Spoke to the pt's daughter Josselyn, states that the pt is feeling well. Weight stable at 231.4 lbs today. Pt seen yesterday by Patrick MYERS RN who stated that the pt's lungs had good air exchange. O2 sats 92% on 3L O2 which drop to the the 80's when she is off the oxygen. PT services to start today for the pt. Disposition: Issue resolved. All appropriate follow up scheduled. Future Visits Scheduled: Future Appointments-next 60 days Date/Time Provider Specialty Dept Phone 08/04/2024 10:45 AM [facility], Nurse Lise Sosa [facility] [phone] 08/23/2024 12:30 PM Destiny Schultz, POPPY [facility] [phone] 09/16/2024 3:00 PM Brandt Santacruz PA-C [facility] [phone] 10/01/2024 1:00 PM Kusum Jones CRNP Family Medicine [phone] 10/13/2024 11:30 AM Chandler Pena MD Urology [phone] 11/24/2024 1:40 PM (Arrive by 1:25 PM) Sheryl Pena PA-C Dermatology [phone] 04/18/2025 1:20 PM Verónica Benavides MD Family Medicine [phone] Janiya Cárdenas, POPPY documented in this encounter Plan of Treatment Upcoming Encounters Date Type Department Care Team (Late st Contact Info) Description 08/23/2024 12:30 PM EST [facility] [address] [place] [address] Destiny Schultz, RN [address] [place] [address] 09/16/2024 3:00 PM EST [facility] [place], [facility] [address] [place] [address] Brandt Santacruz PA-C [address] [place] [address] 10/01/2024 1:00 PM EST Telemedicine Family Medicine [address] [place] [phone] Kusum Jones CRNP [address] [place] [address] [place] [address] 10/13/2024 11:30 AM EST Telemedicine Urology, [facility] [address] [facility] [place] [address] Chandler Pena MD [address] [place] [address] 11/24/2024 1:40 PM EDT Office Visit Dermatology [address] [place] [address] Sheryl Pena PA-C [address] [place] [address] [place] [address] 04/18/2025 1:20 PM EDT Telemedicine Family Medicine [address] [place] [phone] Verónica Benavides MD [address] [place] [address] [place] [address] Health Maintenance Due Date Last Done Comments [...] Additional history exists CKD PHOS USE SMARTSET 18825 05/05/202504/25, 04/30/2024, 04/02/2024, Additional history exists CKD HGB USE SMARTSET 99512 05/26/202505/26, 05/26/2024, 05/07/2024, Additional history exists Pneumococcal [...] Documents on File Type Date Recorded 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
--- OUTSIDE RECORDS SUMMARY | 2024-08-08 16:51 | External Medical Summary | Summary of Care ---
Author Name Unknown Organization [facility] Address [address] [place] [address] Phone [phone] Care Team Providers Care Eeler Name Role Phone Verónica Benavides MD Primary Care Provide r Reason for Visit * Reason Onset Date Comments [facility] Pharmacist Order Request 07/27/2024 Order Request 07/27/2024 Encounter Details Date Type Department Care Team (Late st Contact Info) Description 07/27/2024 Telephone Family [address] [phone] Verónica Benavides MD [address] [place] [address] [place] [id number] [facility] Pharmacist Order Request; Order Request Allergies Active Allergy Reactions Criticality Noted Date Comments Adhesive Tape Medium 01/30/2022 Ibuprofen Hives 01/13/2012 Aspirin Hives,Rash 09/15/2000 Sulfamethoxazole-Trimeth oprim Nausea/vomiting,Othe r (Please comment) 10/27/2020 Dizziness Ciprofloxacin Hcl 06/16/2019 Hoarse, dizzy,disoriented Morphine 09/21/2021 Blacked out Penicillins Hives,Rash 09/15/2000 Prednisone 12/30/2017 Weakness/memory changes/blurred vision documented as of this encounter (statuses as of 08/03/2024) Medications OneTouch Verio w/Device Kit Use up [...] 1 05/30/20 23 Active OneTouch Delica Plus [id number] ns:Type 2 diabetes mellitus with hemoglobin A1c goal of less than 8.0% ([facility]) Test up to two times daily or as directed by [facility] pharmacist 200 Each 3 07/11/20 [...] XL)Indications:Non -ischemic cardiomyopathy (HCC),Coronary artery disease involving torres martinez [...] as of this encounter (statuses as of 08/03/2024) Active Problems Problem Noted Date Diagnosed Date [...] Assessment & Plan (08/29/2021 1:27 PM EST): [facility] Triage Call: Reviewed last C&S [...] Assessment & Plan (01/14/2022 1:57 PM EDT): [facility] Call: I'm not sure who Dr [...] Assessment & Plan (08/29/2021 1:21 PM EST): [facility] Triage Call: Based on what is [...] torres martinez heart without angina pectoris 07/03/2012 Overview (07/03/2012): [...] as of this encounter (statuses as of 08/03/2024) Resolved Problems Problem Noted Date Diagnosed Date [...] as of this encounter (statuses as of 08/03/2024) Immunizations Name Administration Dates Next Due COVID-19 mRNA, LNP-s, No Pre serve, 2-Dose Series ([employer]) 08/29/2021,10/23/2020,10/02/2020 COVID-19, MRNA-LNP, PF, 30 M CG/0.3 mL, 12 YRS AND ABOVE, IM ([employer]) 08/04/2023 Covid-19, Mrna, Lnp-s, Pf, B ivalent, 30 Mcg, IM, 12 yrs and above ([employer]) 08/02/2022 Pneumococcal Conjugate Vacc, 13 Valent (Prevnar) [...] encounter Miscellaneous Notes * Telephone Encounter - Lizy Cole CMA - 08/03/2024 4:16 PM EST Faxed to number below * Telephone Encounter - Verónica Benavides MD - 07/28/2024 2:08 PM EST Signed. I already documented need for wheelchair in 06/18/24 office visit * Telephone Encounter - Lizy Cole CMA - 07/28/2024 1:29 PM EST Ordered pended will send to [facility]. Will also need to Addend 07/26/24 video visit to justify wheelchair * Telephone Encounter - Brandie Camp CPhT - 07/27/2024 3:53 PM [facility] a [facility] They need an order/RX sent to them. Order ref. [id number] Thank you, Brandie Camp Film Painter [facility] 07/27/2024,3:55 PM documented in this encounter Plan of Treatment Upcoming Encounters Date Type Department Care Team (Late st Contact Info) Description 08/04/2024 7:05 AM EST Laboratory Lab Mobile Phlebotomy [facility] [address] [facility] [place] [address] [facility], [facility] Mobile Home Draw [address] [facility] [place] [address] 08/04/2024 10:45 AM EST Scheduled Telephone [facility] [place], [facility] [address] [place] [address] [facility], Nurse [facility] [address] [place] [address] 08/23/2024 12:30 PM EST [facility], [facility] Brandon Freiregail [place] [address] Destiny Schultz RN [address] [place] [address] 09/16/2024 3:00 PM EST Home Visit [facility] [place], [facility] Brandon Stoddardil [place] [address] Brandt Santacruz PA-C [address] [place] [address] 10/01/2024 1:00 PM EST Telemedicine Family Medicine [address] [place] [phone] Kusum Jones CRNP [address] [place] [address] [place] [address] 10/13/2024 11:30 AM EST [facility], [facility] [place] [address] Chandler Pena MD [address] [place] [address] 11/24/2024 1:40 PM EDT Office Visit Dermatology [address] [place] [address] Sheryl Pena PA-C [address] [place] [address] [place] [address] 04/18/2025 1:20 PM EDT Telemedicine Family Medicine [address] [place] [phone] Verónica Benavides MD [address] [place] [address] [place] [address] Health Maintenance Due Date Last Done Comments [...] Additional history exists CKD PHOS USE SMARTSET 66157 05/05/202504/25, 04/30/2024, 04/02/2024, Additional history exists CKD HGB USE SMARTSET 45659 05/26/202505/26, 05/26/2024, 05/07/2024, Additional history exists Pneumococcal [...] pacemaker in situ Coronary artery disease involving torres martinez coronary artery of torres martinez heart without angina pectoris Hypertensive heart and [...] stage 3a chronic kidney disease (HCC)- Primary Impaired mobility and ADLs- Primary Mechanical problems with limbs GENERAL OSTEOARTHROSIS Generalized osteoarthrosis, unspecified site Lymphedema of both lower extremities Morbid obesity with BMI of 45.0-49.9, adult ([facility]) Morbid obesity documented in this encounter Additional Health Concerns Infection Onset Date Last Indicated Resolved Time ESBL 06/07/2024 06/07/2024 documented as of this encounter Advance Directives Documents on File Type Date Recorded 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
--- OUTSIDE RECORDS SUMMARY | 2024-08-08 16:51 | External Medical Summary | Summary of Care ---
Author Name Unknown Organization [facility] Address [address] [place] [address] Phone [phone] Care Team Providers Care Tattoo Technician Name Role Phone Verónica Benavides MD Primary Care Provide r Reason for Visit * Reason Onset Date Comments [facility]: Maintenance 08/03/2024 Encounter Details Date Type Department Care Team (Late st Contact Info) Description 08/03/2024 9:30 AM EST Scheduled Telephone [facility], [facility] [address] [place] [address] [facility], Nurse [facility] [address] [place] [address] Allergies Active Allergy Reactions Criticality Noted Date Comments Adhesive Tape Medium 01/30/2022 Ibuprofen Hives 01/13/2012 Aspirin Hives,Rash 09/15/2000 Sulfamethoxazole-Trimeth oprim Nausea/vomiting,Othe r (Please comment) 10/27/2020 Dizziness Ciprofloxacin Hcl 06/16/2019 Hoarse, dizzy,disoriented Morphine 09/21/2021 Blacked out Penicillins Hives,Rash 09/15/2000 Prednisone 12/30/2017 Weakness/memory changes/blurred vision documented as of this encounter (statuses as of 08/03/2024) Medications Danya meléndez/Device Kit Use up to [...] 1 05/30/20 23 Active OneTouch Delica Plus [id number] ns:Type 2 diabetes mellitus with hemoglobin A1c [...] Assessment & Plan (08/29/2021 1:27 PM EST): [facility] Triage Call: Reviewed [...] Assessment & Plan (01/14/2022 1:57 PM EDT): [facility] Call: I'm not sure who [...] Assessment & Plan (08/29/2021 1:21 PM EST): [facility] Triage Call: Based on what is [...] yocha dehe heart without angina pectoris 07/03/2012 Overview (07/03/2012): [...] mRNA, LNP-s, No Pre serve, 2-Dose Series ([employer]) 08/29/2021,10/23/2020,10/02/2020 COVID-19, MRNA-LNP, PF, 30 M CG/0.3 mL, 12 YRS AND ABOVE, IM ([employer]ir[employer]) 08/04/2023 Covid-19, Mrna, Lnp-s, Pf, B ivalent, 30 Mcg, IM, 12 yrs and above ([employer]) 08/02/2022 Pneumococcal Conjugate Vacc, 13 Valent (Prevnar) [...] Telephone Encounter - Janiya Cárdenas RN - 08/03/2024 2:21 PM EST [facility] Telephonic Nurse [...] from baseline supplemental oxygen needs DME Needs: Nebulizer machine and supplies Medications: Current DTP: Other: Daughter gave 1/2 of Metolazone instead of full tablet. "It hits her too hard and she gets weak" Subjective: Condition Status: [facility] Current Concerns: Call placed to pt's dtr Josselyn. No answer. LMOM for callback. Call placed for follow up on pts SOB per request from Luz Jacob Disposition: Follow up call scheduled for tomorrow with FLOOR HELPER Beekeeper Farmer Future Visits Scheduled: Future Appointments-next 60 days Date/Time Provider Specialty Dept Phone 08/04/2024 7:05 AM [facility], [facility] Mobile Home Draw Laboratory Processing [phone] 08/04/2024 10:45 AM Celina, Nurse Lise Sosa [facility] [phone] 08/23/2024 12:30 PM Destiny Schultz, POPPY [facility] [phone] 09/16/2024 3:00 PM Brandt Santacruz PA-C [facility] [phone] 10/01/2024 1:00 PM Kusum Jones CRNP Family Medicine [phone] 10/13/2024 11:30 AM Chandler Pena MD Urology [phone] 11/24/2024 1:40 PM (Arrive by 1:25 PM) Sheryl Pena PA-C Dermatology [phone] 04/18/2025 1:20 PM Verónica Benavides MD Family Medicine [phone] Janiya Cárdenas, RN documented in this encounter Plan of Treatment Upcoming Encounters Date Type Department Care Team (Late st Contact Info) Description 08/04/2024 7:05 AM EST Laboratory Lab Mobile Phlebotomy [facility] [address] [facility] [place] [address] [facility], Gml Mobile Home Draw [address] [facility] [place] [address] 08/04/2024 10:45 AM EST Scheduled Telephone [facility] [place], [facility] [address] [place] [address] Nurse Lise Patrick [address] [place] [address] 08/23/2024 12:30 PM EST [facility] 132 [facility] [place] [address] Destiny Schultz RN [address] [place] [address] 09/16/2024 3:00 PM EST Home Visit [facility], [facility] [address] [facility] [place] [address] Brandt Santacruz PA-C [address] [place] [address] 10/01/2024 1:00 PM EST Telemedicine Family Medicine [address] [place] [phone] [address] Jones [address] [place] [address] 10/13/2024 11:30 AM EST Telemedicine Urology, [facility] [place] [address] Chandler Pena MD [address] [place] [address] 11/24/2024 1:40 PM EDT Office Visit Dermatology [address] [place] [address] Sheryl Pena PA-C [address] [place] [address] [place] [address] 04/18/2025 1:20 PM EDT Telemedicine Family Medicine [address] [place] [phone] Verónica Benavides MD [address] [place] [address] [place] [address] Health Maintenance Due Date Last Done Comments [...] Additional history exists CKD PHOS USE SMARTSET 59355 05/05/202504/25, 04/30/2024, 04/02/2024, Additional history exists CKD HGB USE SMARTSET 68987 05/26/202505/26, 05/26/2024, 05/07/2024, Additional history exists Pneumococcal [...] on File Type Date 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
--- OUTSIDE RECORDS SUMMARY | 2024-08-08 16:51 | External Medical Summary ---
Author Name Unknown Address Unknown Organization K01:[facility] [place] - [address] [facility] [address] [facility] [address] Laboratory Report Ordering Provider Test Date Status APOLINAR ARMANDO 08/04/2024 10:01:00 Final Observation Date Value Abnormality Reference (Units ) Status WBC, Total 08/04/2024 10:01:00 6.68 4.00-10.80 (K/uL) Final RBC 08/04/2024 10:01:00 2.37 3.85-5.15 (M/uL) Final Hemoglobin 08/04/2024 10:01:00 9.1 Below low normal 12.0-15.3 (g/dL) Final HCT 08/04/2024 10:01:00 29.0 Below low normal 36.0-45.2 (%) Final MCV 08/04/2024 10:01:00 122.4 81.5-97.5 (fL) Final MCH 08/04/2024 10:01:00 38.4 27.0-34.0 (pg) Final MCHC 08/04/2024 10:01:00 31.4 32.0-36.0 (g/dL) Final RDW 08/04/2024 10:01:00 14.0 11.5-15.5 (%) Final Platelets 08/04/2024 10:01:00 379 140-400 (K/uL) Final MPV 08/04/2024 10:01:00 10.3 6.6-11.1 (fL) Final Nucleated erythrocytes/100 leukocytes [Ratio] in Blood by Automated count 08/04/2024 10:01:00 1 Above high normal <=0 (/100 WBCs) Final Performing Location [facility] [place] - [address] [place] [address]
--- OUTSIDE RECORDS SUMMARY | 2024-08-08 16:51 | External Medical Summary ---
Author Name Unknown Address Unknown Organization K01:[facility] [place] [facility] [address] [place] [address] Laboratory Report Ordering Provider Test Date Status ANGELICAJOHNSON 08/04/2024 10:01:00 Final Exclude Heart Failure: <300 pg/mL
Diagnose Heart Failure:
Age <50 yr: >450 pg/mL
50-75 yr: >900 pg/mL
>75 yr: >1800 pg/mL
GFR is 30-59 mL/min: >1200 pg/mL or Age- adjusted values
GFR <30 mL/min: do not use, not reliable

Prognostic threshold: 1000 pg/mL Observation Date Value Abnormality Reference (Units ) Status BNP, Pro-hormone 08/04/2024 10:01:00 3471 Above high no rmal <300 (pg/mL) Final Performing Location [facility] [place] [address] [place] [address]
--- OUTSIDE RECORDS SUMMARY | 2024-08-08 16:51 | External Medical Summary ---
Author Name Unknown Address Unknown Organization K01:[facility] [place] [address] [facility] [address] Laboratory Report Ordering Provider Test Date Status ELIZABETH DOMINGUEZ 08/04/2024 10:01:00 Final Observation Date Value Abnormality Reference (Units ) Status BUN 08/04/2024 10:01:00 25 Above high normal 6-20 (mg/dL) Final Creatinine 08/04/2024 10:01:00 1.0 0.5-1.0 (mg/dL) Final Glomerular filtration rate/1.73 sq M.predicted [Volume Rate/Area] in Serum, Plasma or Blood by Creatinine-based formula (CKD-EPI) 08/04/2024 10:01:00 55 Below low normal >=60 (mL/min) Final eGFR is calculated based on the CKD-EPI 2020 equation. Sodium 08/04/2024 10:01:00 137 135-146 (m mol/L) Final Potassium 08/04/2024 10:01:00 3.9 3.5-5.1 (m mol/L) Final Cl 08/04/2024 10:01:00 97 Below low normal 98- 107 (mmol/L) Final CO2 08/04/2024 10:01:00 27 22-32 (mmo l/L) Final Anion gap 08/04/2024 10:01:00 13 7-15 (mmol /L) Final Glucose 08/04/2024 10:01:00 211 Above high normal 70 -120 (mg/dL) Final Albumin 08/04/2024 10:01:00 3.8 3.8-5.0 (g /dL) Final AST (Aspartate aminotransferase) 08/04/2024 10:01:00 13 10-35 (U/L) Fin al Alk Phos 08/04/2024 10:01:00 81 35-130 (U/ L) Final Bilirubin, Total 08/04/2024 10:01:00 0.3 <=1 .2 (mg/dL) Final Calcium 08/04/2024 10:01:00 9.1 8.4-10.2 ( mg/dL) Final Protein 08/04/2024 10:01:00 6.5 6.0-8.3 (g /dL) Final ALT (Alanine aminotransferase) 08/04/2024 10:01:00 8 Below low normal 10-35 (U/L) Final Performing Location [facility] [place] [address] [facility] [address]
--- OUTSIDE RECORDS SUMMARY | 2024-08-08 16:51 | External Medical Summary | Summary of Care ---
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 Leonarda [...] on the next service day for the [facility] Home Phlebotomy does not service every geographical location on a daily basis. Contact [facility] Client Services at to find out service days for a specific location. Medical Laboratory [address] [place] [address] Dillan Davis M.D. Director and Frame And Scrap Crusher Patient Name: Regla Castano : 1935 Sex: female Address [address] [place] [id number] Provider: @REF@? Verónica Benavides MD? Diagnosis: No diagnosis found. Tests Requested BMP one week Reason for Visit * Reason Onset Date Comments [facility]: Maintenance 08/05/2024 Encounter Details Date Type Department Care Team (Late st Contact Info) Description 08/05/2024 Telephone [facility], [facility] [address] [facility] [place] [address] Luz Jacob CRNP [address] [facility] [place] [address] [facility]: Maintenance Allergies Active Allergy [...] Strip 1 023 Active OneTouch Delica Plus [id number] ons:Type 2 diabetes mellitus with hemoglobin A1c goal of less than 8.0% ([facility]) Test up to two times daily or as directed by [facility] pharmacist 200 Each 3 Active Estrogens Conjugated 0.625 MG/GM Vaginal Cream (Premarin) Administer 0.5 g into the vagina every night at bedtime. Pea-sized amount around vulvar area nightly 30 g 5 023 Active Phenazopyridine HCl 200 MG Oral Tablet (Pyridium) Take 1 Tablet by mouth 3 times a day as needed for Pain, Severe. After meals for pain with urination 6 Tablet Active D-Mannose 500 MG Oral Capsule Take [...] by mouth in the morning. 60 Tablet Active Stool Softener 100 MG Oral Tablet [...] XL)Indications:No n-ischemic cardiomyopathy (HCC),Coronary artery disease involving standing rock [...] morning and 4 Tablets in the evening. 2023 Discontinued documented as of this encounter [...] Assessment & Plan (08/29/2021 1:27 PM EST): [facility] Triage Call: Reviewed [...] Assessment & Plan (01/14/2022 1:57 PM EDT): [facility] Call: I'm not sure who Dr [...] Assessment & Plan (08/29/2021 1:21 PM EST): [facility] Triage Call: Based on what [...] standing rock heart without angina pectoris 07/03/2012 Overview (07/03/2012): [...] mRNA, LNP-s, No Pre serve, 2-Dose Series ([employer]) 08/29/2021,10/23/2020,10/02/2020 COVID-19, MRNA-LNP, PF, 30 M CG/0.3 mL, 12 YRS AND ABOVE, IM ([facility]) 08/04/2023 Covid-19, Mrna, Lnp-s, Pf, B ivalent, 30 Mcg, IM, 12 yrs and above ([employer]) 08/02/2022 Pneumococcal Conjugate Vacc, 13 Valent (Prevnar) [...] phone note from yesterday, pt feeling well, RN reported lungs clear, SpO2 dropping when [...] 9:45 AM EST [facility]uled Telephone [facility] [address] [place] [address] [facility], Nurse [address] [place] [address] 08/07/2024 8:45 AM EST Scheduled Telephone [facility], [place] [address] [place] [address] [facility] Nurse [address] [place] [address] 08/23/2024 12:30 PM EST [facility] Visit [facility] [place], [address] [place] [address] Destiny Schultz, POPPY [address] [place] [address] 09/16/2024 3:00 PM EST Home Visit [facility], [facility] [address] [place] [address] Brandt Santacruz PA-C [address] [place] [address] 10/01/2024 1:00 PM EST Telemedicine Family Medicine [address] [place] [phone] Kusum Jones CRNP [address] [place] [address] [place] [address] 10/13/2024 11:30 AM EST Telemedicine Urology, [facility] [address] [place] [place] [address] Chandler Pena MD [address] [facility] [place] [address] 11/24/2024 1:40 PM EDT Office Visit Dermatology [address] [place] [address] Sheryl Pena PA-C [address] [place] [address] [place] [address] 04/18/2025 1:20 PM EDT Telemedicine Family Medicine [address] [place] [phone] Verónica Benavides MD [address] [place] [address] [place] [address] Scheduled Orders Name Type Priority Associated Diagnoses [...] Additional history exists CKD PHOS USE SMARTSET 02333 05/05/202504/25, 04/30/2024, 04/02/2024, Additional history exists CKD HGB USE SMARTSET 40229 08/04/202508/04, 08/04/2024, 05/26/2024, Additional history exists Pneumococcal [...] pacemaker in situ Coronary artery disease involving standing rock coronary artery of standing rock heart without angina pectoris Hypertensive heart and [...] Documents on File Type Date Recorded Patient 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
--- OUTSIDE RECORDS SUMMARY | 2024-08-08 16:51 | External Medical Summary | Summary of Care ---
Author Name Unknown Organization [facility] Address [address] [place] [address] Phone [phone] Care Team Providers Care Director Of Integrated Marketing Name Role Phone Verónica Benavides MD Primary Care Provide r Reason for Visit * Reason Onset Date Comments [facility]: Maintenance 08/03/2024 Encounter Details Date Type Department Care Team (Late st Contact Info) Description 08/03/2024 9:30 AM EST Scheduled Telephone [facility], [facility] [address] [place] [address] [facility] [address] [place] [address] Allergies Active Allergy Reactions Criticality Noted Date [...] 1 05/30/20 23 Active OneTouch Delica Plus [id number] ns:Type 2 diabetes mellitus with hemoglobin A1c goal of less than 8.0% ([facility]) Test up to two times daily or as directed by [facility] pharmacist 200 Each 3 07/11/20 23 [...] XL)Indications:Non -ischemic cardiomyopathy (HCC),Coronary artery disease involving [place] coronary artery of [place] heart without angina pectoris,HTN, goal below 140/90 [...] Assessment & Plan (01/14/2022 1:57 PM EDT): [facility] Call: I'm not sure [...] synthroid Coronary artery disease invo lving [place] coronary artery of [place] heart without angina pectoris 07/03/2012 Overview (07/03/2012): [...] mRNA, LNP-s, No Pre serve, 2-Dose Series ([employer]) 08/29/2021,10/23/2020,10/02/2020 COVID-19, MRNA-LNP, PF, 30 M CG/0.3 mL, 12 YRS AND ABOVE, IM ([employer]) 08/04/2023 Covid-19, Mrna, Lnp-s, Pf, B ivalent, 30 Mcg, IM, 12 yrs and above ([employer]) 08/02/2022 Influenza, Whole Virus 08/07/2000 Pneumococcal Conjugate [...] Cárdenas RN - 08/03/2024 2:21 PM EST Images from the original note were not included. [facility] Telephonic Nurse Follow-Up Call [facility] Subprogram: Primary Care at Home [...] and she gets weak" Subjective: Condition Status: Improvement in symptoms but not at baseline Current Concerns: Call placed for follow up on pts SOB per request from Luz Jacob Call placed to pt's dtr Josselyn. States that the pt is doing well today. Weight back to her baseline at 231.0 lbs. Down from 235.0 Pt denies any increased SOB from baseline Pulse ox 92% on 3L O2. Drops to 83% w/o O2 Denies increased LE edema. Disposition: Follow up call scheduled for tomorrow with CREDIT AND COLLECTION MANAGER Tutoring Assistant Future Visits Scheduled: Future Appointments-next 60 days Date/Time Provider Specialty Dept Phone 08/04/2024 7:05 AM [facility] Draw Laboratory Processing [phone] 08/04/2024 10:45 AM Celina, Nurse Lise Sosa [facility] [phone] 08/23/2024 12:30 PM Destiny Schultz RN [facility] [phone] 09/16/2024 3:00 PM Brandt Santacruz PA-C [facility] [phone] 10/01/2024 1:00 PM Kusum Jones CRNP Family Medicine [phone] 10/13/2024 11:30 AM Chandler Pena MD Urology [phone] 11/24/2024 1:40 PM (Arrive by 1:25 PM) Sheryl Pena PA-C Dermatology [phone] 04/18/2025 1:20 PM Verónica Benavides MD Family Medicine [phone] Janiya Cárdenas, POPPY documented in this encounter Plan of Treatment Upcoming Encounters Date Type Department Care Team (Late st Contact Info) Description 08/04/2024 7:05 AM EST Laboratory Lab Mobile Phlebotomy [facility] [address] [address] [facility] Draw [address] [address] 08/04/2024 10:45 AM EST Scheduled Telephone [facility], [facility] 132 [facility] [place] [address] [facility] [address] [place] [address] 08/23/2024 12:30 PM EST Home Visit [facility], [facility] 132 [facility] [place] [address] Destiny Schultz, POPPY 132 [place] [address] 09/16/2024 3:00 PM EST Home Visit [facility], [facility] [place] [address] Brandt Santacruz PA-C 132 [facility] [place] [address] 10/01/2024 1:00 PM EST Telemedicine Family Medicine [address] [place] [phone] Kusum Jones [address] [place] [address] 10/13/2024 11:30 AM EST Telemedicine Urology, [facility] 132 [facility] [place] [address] Chandler Pena MD [address] [place] [address] 11/24/2024 1:40 PM EDT Office Visit Dermatology [address] [place] [address] Sheryl Pena PA-C [address] [place] [address] [place] [address] 04/18/2025 1:20 PM EDT Telemedicine Family Medicine [address] [place] [phone] Verónica Benavides MD [address] [place] [address] [place] [address] Health Maintenance Due Date Last Done Comments [...] Additional history exists CKD PHOS USE SMARTSET 30945 05/05/202504/25, 04/30/2024, 04/02/2024, Additional history exists CKD HGB USE SMARTSET 31722 05/26/202505/26, 05/26/2024, 05/07/2024, Additional history exists Pneumococcal [...] Documents on File Type Date Recorded 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
--- OUTSIDE RECORDS SUMMARY | 2024-08-08 16:51 | External Medical Summary | Summary of Care ---
Author Name Unknown Organization [facility] Address [address] [place] [address] Phone [phone] Care Team Providers Care Publisher Assistant Name Role Phone Verónica Benavides MD Primary Care Provide r Encounter Details Date Type Department Care Team (Late Contact Info) Description 07/30/2024 12:30 PM EST [facility] [address] [facility] [place] [address] Destiny Schultz, RN [address] [facility] [place] [address] Allergies Active Allergy Reactions Criticality Noted Date Comments Adhesive Tape Medium 01/30/2022 Ibuprofen Hives 01/13/2012 Aspirin Hives,Rash 09/15/2000 Sulfamethoxazole-Trimeth oprim Nausea/vomiting,Othe r (Please comment) 10/27/2020 Dizziness Ciprofloxacin Hcl 06/16/2019 Hoarse, dizzy,disoriented Morphine 09/21/2021 Blacked out Penicillins Hives,Rash 09/15/2000 Prednisone 12/30/2017 Weakness/memory changes/blurred vision documented as of this encounter (statuses as of 08/02/2024) Medications OneTouch Verio w/Device Kit Use up [...] 1 05/30/20 23 Active OneTouch Delica Plus [id number] ns:Type 2 diabetes mellitus with hemoglobin A1c [...] XL)Indications:Non -ischemic cardiomyopathy (HCC),Coronary artery disease involving [place] coronary [...] as of this encounter (statuses as of 08/02/2024) Active Problems Problem Noted Date Diagnosed Date [...] Assessment & Plan (08/29/2021 1:27 PM EST): [facility] Triage Call: Reviewed [...] Assessment & Plan (01/14/2022 1:57 PM EDT): [facility] Call: I'm not sure who Dr Dominguez [...] Assessment & Plan (08/29/2021 1:21 PM EST): [facility] Triage Call: Based on what is [...] of [place] heart without angina pectoris 07/03/2012 Overview (07/03/2012): [...] as of this encounter (statuses as of 08/02/2024) Resolved Problems Problem Noted Date Diagnosed Date [...] as of this encounter (statuses as of 08/02/2024) Immunizations Name Administration Dates Next Due COVID-19 mRNA, LNP-s, No Pre serve, 2-Dose Series ([employer]) 08/29/2021,10/23/2020,10/02/2020 COVID-19, MRNA-LNP, PF, 30 M CG/0.3 mL, 12 YRS AND ABOVE, IM ([facility]) 08/04/2023 Covid-19, Mrna, Lnp-s, Pf, B ivalent, 30 Mcg, IM, 12 yrs and above ([employer]) 08/02/2022 Pneumococcal Conjugate Vacc, 13 Valent (Prevnar) [...] Sign Reading Time Taken Comments Blood Pressure 112/78 07/30/2024 1:45 PM EST Pulse 72 07/30/2024 1:45 PM EST Temperature 36.7 C (98.1 F) 07/30/2024 1:45 PM ES T Respiratory Rate 18 07/30/2024 1:45 PM EST Oxygen Saturation 94% 07/30/2024 1:45 PM EST Inhaled Oxygen Concentration - - Weight 105.2 kg (232 lb) 07/30/2024 1:45 PM EST Height - - Body Mass Index 43.84 02/26/2023 10:32 AM EDT documented in this encounter Progress Notes * Destiny Schultz RN - 07/30/2024 1:44 PM EST Current Concerns: Patient seen for follow up- [facility]- 07/20- 07/22- constipation [facility]- 07/04- 07/08- rehab stay at [facility]- UTI- treated with ertapenem IV the oral dose of Macrobid. Spo2- dropping to 79% on RA Feeling week and tired. Nonproductive cough Has been requiring oxygen continuous since . Recent DTP(Metolazone 2.5mg) 07/23/24- effective per daughter. Weight- 232.8 Does report medication "wiped patient out" Utilization 2 x in June- was referred to Home health for therapy. Daughter reports she has not heard from [facility] This nurse contacted agency- patient to be admitted within 24-48 hours. Daughter aware. VS wnl Lungs clear but diminished in bases Sob with minimal exertion Chronic BLE lymphedema Compression pumps daily alternating legs Blood sugar 162 Voiding without difficulty BM today Appetite good this morning- did have some nausea in the afternoon Taking fluids. TT to Luz Jacob- Chest xray ordered Labs to be obtained- mobile lab Follow up phone calls Physical Exam: Physical Exam Constitutional: Appearance: She is obese. [...] Capillary refill takes 2 to 3 seconds. Coloration: Skin is pale. Neurological: General: No focal deficit present. Mental Status: She is alert and oriented to person, place, and time. Psychiatric: Mood and Affect: Mood normal. Behavior: Behavior normal. Review of Systems: Review of Systems Constitutional: Positive for fatigue. Respiratory: Positive for cough and shortness of breath. Cardiovascular: Positive for leg swelling. Gastrointestinal: Negative. Genitourinary: Negative. Musculoskeletal: Positive for gait problem. Skin: Negative. Neurological: Positive for weakness. Hematological: Negative. Psychiatric/Behavioral: Negative. Care Plan Goal Progress: Patient will maintain optimal mobility & activity level. (Not Progressing) Start: 05/19/24 Expected End: 08/17/24 Goal Note Contact to [facility] health- 2 recent hospital stays. Patient deconditioned. to admit 24/48 hours. Patient will achieve & maintain optimal fluid balance. (Not Progressing) Start: 05/19/24 Expected End: 08/17/24 Goal Note Recent addition of Metolazone x 1 dose. Chest xray ordered Labs to be obtained by mobile lab Patient will remain free from infection. (Progressing) Start: 07/18/24 Expected End: 11/15/24 Orders Placed: No orders of the defined types were placed in this encounter. Medications Given: Care Gaps: Care Gaps Care gaps closed this contact: Education;Lab/radiology testing coordinated (08/02/24 1644) Type of education: Clinical/disease (08/02/24 1644) documented in this encounter Plan of Treatment Upcoming Encounters Date Type Department Care Team (Late st Contact Info) Description 08/03/2024 9:30 AM EST Scheduled Telephone [facility], [place] [address] [place] [address] [facility], Nurse [place] [address] [place] [address] 08/04/2024 7:05 AM EST Laboratory Lab Mobile [facility]lebotomy [facility] [facility] [address] [facility] [facility] [address] 08/04/2024 10:45 AM EST Scheduled Telephone [facility], [facility] [address] [place] [address] [facility] Nurse [place] [address] [place] [address] 08/23/2024 12:30 PM EST Home Visit [facility], [facility] [address] [place] [address] Destiny Schultz RN [address] [place] [address] 09/16/2024 3:00 PM EST Home Visit [facility], [facility] [place] [address] Brandt Santacruz PA-C [address] [place] [address] 10/01/2024 1:00 PM EST Telemedicine Family Medicine [address] [phone] Kusum Jones CRNP [address] [place] [address] [place] [address] 10/13/2024 11:30 AM EST Telemedicine Urology, [facility] [address] [place] [address] Chandler Pena MD [address] [place] [address] 11/24/2024 1:40 PM EDT Office Visit Dermatology [address] [place] [address] Sheryl Pena PA-C [address] [place] [address] [place] [address] 04/18/2025 1:20 PM EDT Telemedicine Family Medicine [address] [place] [phone] Verónica Benavides MD [address] [place] [address] [place] [address] Health Maintenance Due Date Last Done Comments [...] Additional history exists CKD PHOS USE SMARTSET 07515 05/05/202504/25, 04/30/2024, 04/02/2024, Additional history exists CKD HGB USE SMARTSET 04130 05/26/202505/26, 05/26/2024, 05/07/2024, Additional history exists Pneumococcal [...] on File Type Date Recorded 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
--- OUTSIDE RECORDS SUMMARY | 2024-08-08 16:51 | External Medical Summary | Summary of Care ---
Author Name Unknown Organization [facility] Address [address] [place] [address] Phone [phone] Care Team Providers Care Senior Formulation Scientist Name Role Phone Verónica Benavides MD Primary Care Provide r Reason for Visit * Reason Onset Date Comments [facility]: Maintenance 08/02/2024 Encounter Details Date Type Department Care Team (Late st Contact Info) Description 08/02/2024 Telephone [facility], [facility] [address] [place] [address] Luz Jacob CRNP [address] [place] [address] [facility]: Maintenance Allergies Active [...] 1 05/30/20 23 Active OneTouch Delica Plus [id number] ns:Type 2 diabetes mellitus with hemoglobin A1c goal of less than 8.0% ([facility]) Test up to two times daily or as directed by [facility] pharmacist 200 Each 3 07/11/20 [...] XL)Indications:Non -ischemic cardiomyopathy (HCC),Coronary artery disease involving [place] coronary [...] Assessment & Plan (08/29/2021 1:27 PM EST): [facility] Triage Call: Reviewed last C&S [...] & Plan (01/14/2022 1:57 PM EDT): [facility] Call: I'm not sure who [...] Assessment & Plan (08/29/2021 1:21 PM EST): [facility] Triage Call: Based on what is [...] of [place] heart without angina pectoris 07/03/2012 Overview (07/03/2012): [...] mRNA, LNP-s, No Pre serve, 2-Dose Series ([employer]) 08/29/2021,10/23/2020,10/02/2020 COVID-19, MRNA-LNP, PF, 30 M CG/0.3 mL, 12 YRS AND ABOVE, IM ([employer]) 08/04/2023 Covid-19, Mrna, Lnp-s, Pf, B ivalent, 30 Mcg, IM, 12 yrs and above ([employer]) 08/02/2022 Influenza, Whole Virus 08/07/2000 Pneumococcal Conjugate [...] Telephone Encounter - Nanci Leiva RN - 08/02/2024 2:46 PM EST Follow up calls set Nanci Leiva, RN, BSN night shift managerProjector Booth Operator [phone] option #1 * Telephone Encounter - Luz Jacob CRNP - 08/02/2024 2:39 PM EST Intake--chest xray showing slight increased pulmonary congestion. I see from today's call pt is feeling better. She was given metolazone yesterday and she may diurese even further. Please continue tocall daily next 48 hours. IF wt trends up or she develops increased shortness of breath we may needto increase torsemide dose to 100mg BID and monitor renal function. JUNIOR Dixon documented in this encounter Plan of Treatment Upcoming Encounters Date Type Department Care Team (Late st Contact Info) Description 08/03/2024 9:30 AM EST Scheduled Telephone [facility], [place] [address] [address] [place] [address] [facility], Nurse [facility] [place] [address] 08/04/2024 7:05 AM EST Laboratory Lab Mobile Phlebotomy [facility] [address] [facility] [address] [facility] Draw [address] [facility] [address] 08/04/2024 10:45 AM EST Scheduled Telephone [facility], [facility] [place] [address] [facility] Nurse [facility] [place] [address] 08/23/2024 12:30 PM EST Home Visit [facility], [address] [place] [address] Destiny Schultz, POPPY 132 [facility] [place] [address] 09/16/2024 3:00 PM EST Home Visit [facility], [address] [place] [address] Brandt Santacruz PA-C 132 [facility] [place] [address] 10/01/2024 1:00 PM EST Telemedicine Family Medicine [address] [place] [phone] Kusum Jones CRNP [address] [place] [address] [place] [address] 10/13/2024 11:30 AM EST Telemedicine Urology, [facility] [address] [place] [address] Chandler Pena MD [address] [place] [address] 11/24/2024 1:40 PM EDT Office Visit Dermatology [address] [place] [address] Sheryl Pena PA-C [address] [place] [address] [place] [address] 04/18/2025 1:20 PM EDT Telemedicine Family Medicine [address] [place] [phone] Verónica Benavides MD [address] [place] [address] [place] [address] Health Maintenance Due Date Last Done Comments [...] Additional history exists CKD PHOS USE SMARTSET 19504 05/05/202504/25, 04/30/2024, 04/02/2024, Additional history exists CKD HGB USE SMARTSET 31758 05/26/202505/26, 05/26/2024, 05/07/2024, Additional history exists Pneumococcal [...] Documents on File Type Date Recorded 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
--- OUTSIDE RECORDS SUMMARY | 2024-08-08 16:52 | External Medical Summary | Summary of Care ---
Author Name Unknown Organization [facility] Address [address] [place] [address] Phone [phone] Care Team Providers Care Mri Supervisor Name Role Phone Verónica Benavides MD Primary Care Provide r Reason for Visit * Reason Onset Date Comments [facility]: Maintenance 07/31/2024 Encounter Details Date Type Department Care Team (Late st Contact Info) Description 07/31/2024 1:15 PM EST Scheduled Telephone [facility], [facility] [address] [place] [address] [facility], Nurse [facility] [address] [place] [address] Allergies Active Allergy Reactions Criticality Noted Date Comments Adhesive Tape Medium 01/30/2022 Ibuprofen Hives 01/13/2012 Aspirin Hives,Rash 09/15/2000 Sulfamethoxazole-Trimeth oprim Nausea/vomiting,Othe r (Please comment) 10/27/2020 Dizziness Ciprofloxacin Hcl 06/16/2019 Hoarse, dizzy,disoriented Morphine 09/21/2021 Blacked out Penicillins Hives,Rash 09/15/2000 Prednisone 12/30/2017 Weakness/memory changes/blurred vision documented as of this encounter (statuses as of 07/31/2024) Medications Danya meléndez/Device Kit Use up to [...] 1 05/30/20 23 Active OneTouch Delica Plus [id number] ns:Type 2 diabetes mellitus with hemoglobin A1c goal of less than 8.0% ([facility]) Test up to two times daily or as directed by [facility] pharmacist 200 Each 3 07/11/20 [...] XL)Indications:Non -ischemic cardiomyopathy (HCC),Coronary artery disease involving [place] [...] as of this encounter (statuses as of 07/31/2024) Active Problems Problem Noted Date Diagnosed Date [...] Plan (08/29/2021 1:27 PM EST): [facility] Triage Call: Reviewed last C&S - [...] Assessment & Plan (01/14/2022 1:57 PM EDT): [facility] Call: I'm not sure who Dr Dominguez [...] Plan (08/29/2021 1:21 PM EST): [facility] Triage Call: Based on what is [...] [place] heart without angina pectoris 07/03/2012 Overview (07/03/2012): [...] as of this encounter (statuses as of 07/31/2024) Resolved Problems Problem Noted Date Diagnosed Date [...] as of this encounter (statuses as of 07/31/2024) Immunizations Name Administration Dates Next Due COVID-19 mRNA, LNP-s, No Pre serve, 2-Dose Series ([employer]) 08/29/2021,10/23/2020,10/02/2020 COVID-19, MRNA-LNP, PF, 30 M CG/0.3 mL, 12 YRS AND ABOVE, IM ([employer]BLOX-Comirnaty) 08/04/2023 Covid-19, Mrna, Lnp-s, Pf, B ivalent, 30 Mcg, IM, 12 yrs and above (Astro) 08/02/2022 Influenza, Whole Virus 08/07/2000 Pneumococcal Conjugate [...] Telephone Encounter - Carol Portillo RN - 07/31/2024 4:08 PM EST Phone call to daughter to make her aware of Dr. Gutierrez's recommendations. Josselyn reports she already got her second Torsemide dose this evening and does not want to give her anymore diuretics tonight but will give her the Metolazone tomorrow morning. Follow up call on for tomorrow. KATY Lynn Registered Nurse Navigator Triage [facility] * Telephone Encounter - Kip Gutierrez MD - 07/31/2024 3:53 PM EST Recomm to give 1 dose of metolazone 2.5mg prior to tonight torsemide dose. Also recomm. extra torsemide 20mg in AM - could you pl inform pt/family. Thank you Kip Gutierrez MD * Telephone Encounter - Carol Portillo RN - 07/31/2024 3:24 PM EST [facility] Telephonic Nurse Follow-Up Call [facility] Subprogram: Primary Care at Home Follow Up Call Type: Weekend Call Acute issue requiring follow-up call: Other: [place] calls to check Shortness of breath? Spo2? How is she feeling? Objective: 07/30/2024 1:45 PM 07/23/2024 12:45 PM 07/18/2024 1:26 PM 06/21/2024 12:23 PM 2024 2:29 PM VITALS ACROSS ENCOUNTERS BP 112/78 120/72 130/60 110/60 108/64 Pulse 72 71 72 80 Weight 105.2 kg 108 kg BMI 43.84 kg/m2 44.99 kg/m2 Remote Patient Monitoring: NONE Oxygen Needs: NO CHANGE from baseline supplemental oxygen needs DME Needs: Nebulizer machine and supplies Medications: No medication or dose adjustments made during acute episode Subjective: Condition Status: No change in symptoms Current Concerns: Spoke with daughter Josselyn, reports she is still SOB at rest and exertion, is using her incentive spirometer, weight up 2.1 lbs since yesterday, legs are increased in swelling, unsure if she has abdominal bloating, no wheezing in lungs today, has non productive cough, no fever/chills, no V/D has nausea and takes Zofran prn, always has dizziness due to inner ear issues, no sore throat, no headache today, is eating/drinking, staying hydrated, is urinating, LBM was yesterday, slept good through the night. Is wearing O2@ 3lpm all the time, pulse ox is 92% with 3lpm. Daughter concerned over the increased SOB at rest, weight gain over night and the increased edema to BLE's. Patient took Metolazone 2.5 mg 8 days ago and was very effective [facility] nurse present today and was able to hear lung sounds today Disposition: Routed to [facility] and/or [facility] Care Team for further advice Future Visits Scheduled: Future Appointments-next 60 days Date/Time Provider Specialty Dept Phone 08/01/2024 10:30 AM [facility], Nurse Lise [facility]er at Home [phone] 08/04/2024 7:05 AM [facility] Home Draw Laboratory Processing [phone] 08/23/2024 12:30 PM Destiny Schultz, RN [facility] [phone] 09/16/2024 3:00 PM Brandt Santacruz PA-C [facility] [phone] 10/01/2024 1:00 PM Kusum Jones CRNP Family Medicine [phone] 10/13/2024 11:30 AM Chandler Pena MD Urology [phone] 11/24/2024 1:40 PM (Arrive by 1:25 PM) Sheryl Pena PA-C Dermatology [phone] 04/18/2025 1:20 PM Verónica Benavides MD Family Medicine [phone] Carol Portillo RN documented in this encounter Plan of Treatment Upcoming Encounters Date Type Department Care Team (Late st Contact Info) Description 08/01/2024 10:30 AM EST Scheduled Telephone [facility], [address] [place] [address] [facility], Nurse [facility] 132 [facility] [place] [address] 08/04/2024 7:05 AM EST Laboratory Lab Mobile Phlebotomy [facility] [facility] [address] [facility] [address] [facility] [address] 08/23/2024 12:30 PM EST Home Visit [facility] [place], [facility] 132 [facility] [place] [address] Destiny Schultz, POPPY 132 [facility] [place] [address] 09/16/2024 3:00 PM EST Home Visit [facility], [facility] [address] [place] [address] Brandt Santacruz PA-C [address] [place] [address] 10/01/2024 1:00 PM EST Telemedicine Family Medicine [address] [place] [phone] Kusum Jones CRNP [address] [place] [address] [place] [address] 10/13/2024 11:30 AM EST Telemedicine Urology, [facility] [address] [place] [address] Chandler Pena MD [address] [place] [address] [place] [address] 11/24/2024 1:40 PM EDT Office Visit Dermatology [address] [place] [address] Sheryl Pena PA-C [address] [place] [address] [place] [address] 04/18/2025 1:20 PM EDT Telemedicine Family Medicine [address] [place] [phone] Verónica Benavides MD [address] [place] [address] [place] [address] Health Maintenance Due Date Last Done Comments [...] Additional history exists CKD PHOS USE SMARTSET 48241 05/05/202504/25, 04/30/2024, 04/02/2024, Additional history exists CKD HGB USE SMARTSET 33604 05/26/202505/26, 05/26/2024, 05/07/2024, Additional history exists Pneumococcal [...] Documents on File Type Date Recorded 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
--- OUTSIDE RECORDS SUMMARY | 2024-08-08 16:52 | External Medical Summary | Summary of Care ---
Author Name Unknown Organization [facility] Address [address] [place] [address] Phone [phone] Care Team Providers Care Hospice Music Therapist Name Role Phone Verónica Benavides MD Primary Care Provide r Reason for Visit * Reason Onset Date Comments [facility]: Maintenance 08/02/2024 Encounter Details Date Type Department Care Team (Late st Contact Info) Description 08/02/2024 Telephone [facility], [facility] [address] [place] [address] Luz Jacob CRNP [address] [place] [address] [facility]: Maintenance Allergies Active Allergy [...] 1 05/30/20 23 Active OneTouch Delica Plus [id number] ns:Type 2 diabetes mellitus with hemoglobin A1c goal of less than 8.0% ([facility]) Test up to two times daily or as directed by [facility] pharmacist 200 Each 3 07/11/20 23 [...] XL)Indications:Non -ischemic cardiomyopathy (HCC),Coronary artery disease involving [place] coronary artery of [place] heart without angina pectoris,HTN, goal below [...] Assessment & Plan (08/29/2021 1:27 PM EST): [facility] Triage Call: Reviewed last [...] Assessment & Plan (01/14/2022 1:57 PM EDT): [facility] Call: I'm not sure who [...] Assessment & Plan (08/29/2021 1:21 PM EST): [facility] Triage Call: Based on what [...] Continue synthroid Coronary artery disease invo lving [place] coronary artery of [place] heart without angina pectoris 07/03/2012 Overview (07/03/2012): [...] mRNA, LNP-s, No Pre serve, 2-Dose Series ([employer]) 08/29/2021,10/23/2020,10/02/2020 COVID-19, MRNA-LNP, PF, 30 M CG/0.3 mL, 12 YRS AND ABOVE, IM ([employer]-Comirnat) 08/04/2023 Covid-19, Mrna, Lnp-s, Pf, B ivalent, 30 Mcg, IM, 12 yrs and above (Floop) 08/02/2022 Influenza, Whole Virus 08/07/2000 Pneumococcal Conjugate [...] up calls set Nanci Leiva, RN, BSN production leadDye And Chemical Coordinator [phone] option #1 * Telephone Encounter - Luz [...] AM EST Scheduled Telephone [facility], [place] [address] [address] [place] [address] [facility], Nurse [facility] [place] [address] 08/04/2024 7:05 AM EST Laboratory Lab Mobile Phlebotomy [facility] [facility] [place] [address] [facility] Home Draw [address] [facility] [address] 08/04/2024 10:45 AM EST Scheduled Telephone [facility], [facility] [place] [address] [facility] Nurse [facility] [place] [address] 08/23/2024 12:30 PM EST Home Visit [facility], [address] [place] [address] Destiny Schultz, POPPY 132 [facility] [place] [address] 09/16/2024 3:00 PM EST Home Visit [facility], [address] [place] [address] Brandt Santacruz PA-C 132 [facility] [place] [address] 10/01/2024 1:00 PM EST Telemedicine Family Medicine [address] [place] [phone] Kusum Jones CRNP [address] [place] [address] [place] [address] 10/13/2024 11:30 AM EST Telemedicine Urology, [facility] [address] [place] [address] Chandler Pena MD [address] [place] [address] 11/24/2024 1:40 PM EDT Office Visit Dermatology [address] [place] [address] Sheryl Pena PA-C [address] [place] [address] [place] [address] 04/18/2025 1:20 PM EDT Telemedicine Family Medicine [address] [place] [phone] Verónica Benavides MD [address] [place] [address] [place] [address] Health Maintenance Due Date Last Done Comments [...] Additional history exists CKD PHOS USE SMARTSET 95226 05/05/202504/25, 04/30/2024, 04/02/2024, Additional history exists CKD HGB USE SMARTSET 13692 05/26/202505/26, 05/26/2024, 05/07/2024, Additional history exists Pneumococcal [...] on File Type Date 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
--- OUTSIDE RECORDS SUMMARY | 2024-08-08 16:52 | External Medical Summary | Summary of Care ---
Author Name Unknown Organization [facility] Address [address] [place] [address] Phone [phone] Care Team Providers Care Supervisor Wood Crew Name Role Phone Verónica Benavides MD Primary Care Provide r Reason for Visit * Reason Onset Date Comments Information 07/30/2024 Encounter Details Date Type Department Care Team (Late st Contact Info) Description 07/30/2024 Telephone [facility], [place] [address] [place] [address] Liliam Hsieh, BETTY [address] [place] [address] Information (///) Allergies Active Allergy Reactions Criticality Noted Date Comments Adhesive Tape Medium 01/30/2022 Ibuprofen Hives 01/13/2012 Aspirin Hives,Rash 09/15/2000 Sulfamethoxazole-Trimeth oprim Nausea/vomiting,Othe r (Please comment) 10/27/2020 Dizziness Ciprofloxacin Hcl 06/16/2019 Hoarse, dizzy,disoriented Morphine 09/21/2021 Blacked out Penicillins Hives,Rash 09/15/2000 Prednisone 12/30/2017 Weakness/memory changes/blurred vision documented as of this encounter (statuses as of 07/30/2024) Medications OneTouch Verio w/Device Kit Use up [...] 1 05/30/20 23 Active OneTouch Delica Plus [id number] ns:Type 2 diabetes mellitus with hemoglobin A1c goal of less than 8.0% ([facility]) Test up to two times daily or as directed by [facility] pharmacist 200 Each 3 07/11/20 [...] XL)Indications:Non -ischemic cardiomyopathy (HCC),Coronary artery disease involving [place] coronary artery of [place] heart without angina pectoris,HTN, goal below 140/90 [...] as of this encounter (statuses as of 07/30/2024) Active Problems Problem Noted Date Diagnosed Date [...] Assessment & Plan (08/29/2021 1:27 PM EST): [facility] Triage Call: Reviewed last [...] Assessment & Plan (01/14/2022 1:57 PM EDT): [facility] Call: I'm not sure who [...] Assessment & Plan (08/29/2021 1:21 PM EST): [facility] Triage Call: Based on what [...] Continue synthroid Coronary artery disease invo lving [place] coronary artery of [place] heart without angina pectoris 07/03/2012 Overview (07/03/2012): [...] as of this encounter (statuses as of 07/30/2024) Resolved Problems Problem Noted Date Diagnosed Date [...] as of this encounter (statuses as of 07/30/2024) Immunizations Name Administration Dates Next Due COVID-19 mRNA, LNP-s, No Pre serve, 2-Dose Series ([employer]) 08/29/2021,10/23/2020,10/02/2020 COVID-19, MRNA-LNP, PF, 30 M CG/0.3 mL, 12 YRS AND ABOVE, IM ([facility]) 08/04/2023 Covid-19, Mrna, Lnp-s, Pf, B ivalent, 30 Mcg, IM, 12 yrs and above ([employer]) 08/02/2022 Pneumococcal Conjugate Vacc, 13 Valent (Prevnar) [...] Telephone Encounter - Liliam Hsieh OSA - 07/30/2024 3:25 PM EST F/u faxed docs to [facility] and they are received and they will be going out to see her Friday documented in this encounter Plan of Treatment Upcoming Encounters Date Type Department Care Team (Late st Contact Info) Description 07/31/2024 1:15 PM EST [facility]uled [facility] [place] [address] [place] [address] [facility], Nurse [place] [address] [address] [place] [address] 08/01/2024 10:30 AM EST Scheduled Telephone [facility], [facility] [address] [place] [address] [facility], Nurse [place] [address] [place] [address] 08/04/2024 7:05 AM EST Laboratory Lab Mobile Phlebotomy [facility] [address] [facility] [address] [facility], [facility] Mobile Home Draw [address] [place] [address] 08/23/2024 12:30 PM EST Home Visit [facility], [facility] 132 [facility] [place] [address] Destiny Schultz, RN 132 [facility] [place] [address] 09/16/2024 3:00 PM EST Home Visit [facility], [facility] 132 [facility] [place] [address] Brandt Santacruz PA-C 132 [facility] [place] [address] 10/01/2024 1:00 PM EST Telemedicine Family [address] [place] [phone] Kusum Jones CRNP [address] [place] [address] [place] [address] 10/13/2024 11:30 AM EST Telemedicine Urology, [facility] 132 [facility] [place] [address] Chandler Pena MD [address] [place] [address] 11/24/2024 1:40 PM EDT Office Visit Dermatology [address] [place] [address] Sheryl Pena PA-C [address] [place] [address] [place] [address] 04/18/2025 1:20 PM EDT Telemedicine Family [address] [place] [phone] Verónica Benavides MD [address] [place] [address] [place] [address] Health Maintenance Due Date [...] Additional history exists CKD PHOS USE SMARTSET 18242 05/05/202504/25, 04/30/2024, 04/02/2024, Additional history exists CKD HGB USE SMARTSET 27935 05/26/202505/26, 05/26/2024, 05/07/2024, Additional history exists Pneumococcal [...] Documents on File Type Date Recorded 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
--- OUTSIDE RECORDS SUMMARY | 2024-08-08 16:52 | External Medical Summary | Summary of Care ---
Author Name Unknown Organization [facility] Address [address] [place] [address] Phone [phone] Care Team Providers Care Mechanical Cad Drafter Name Role Phone Verónica Benavides MD Primary Care Provide r Reason for Visit * Reason Onset Date Comments [facility]: Maintenance 08/01/2024 Encounter Details Date Type Department Care Team (Late st Contact Info) Description 08/01/2024 10:30 AM EST Scheduled Telephone [facility], [facility] [address] [place] [address] [facility], Nurse [facility] [address] [place] [address] Allergies Active Allergy Reactions Criticality Noted Date Comments Adhesive Tape Medium 01/30/2022 Ibuprofen Hives 01/13/2012 Aspirin Hives,Rash 09/15/2000 Sulfamethoxazole-Trimeth oprim Nausea/vomiting,Othe r (Please comment) 10/27/2020 Dizziness Ciprofloxacin Hcl 06/16/2019 Hoarse, dizzy,disoriented Morphine 09/21/2021 Blacked out Penicillins Hives,Rash 09/15/2000 Prednisone 12/30/2017 Weakness/memory changes/blurred vision documented as of this encounter (statuses as of 08/01/2024) Medications Danya meléndez/Device Kit Use up to [...] 1 05/30/20 23 Active OneTouch Delica Plus [id number] ns:Type 2 diabetes mellitus with hemoglobin A1c goal of less than 8.0% ([facility]) Test up to two times daily or as directed by [facility] pharmacist 200 Each 3 07/11/20 [...] XL)Indications:Non -ischemic cardiomyopathy (HCC),Coronary artery disease involving [place] coronary artery of [place] heart without angina pectoris,HTN, goal below 140/90 [...] as of this encounter (statuses as of 08/01/2024) Active Problems Problem Noted Date Diagnosed Date [...] Assessment & Plan (08/29/2021 1:27 PM EST): [facility] Triage Call: Reviewed last C&S [...] Assessment & Plan (01/14/2022 1:57 PM EDT): [facility] Call: I'm not sure who [...] Assessment & Plan (08/29/2021 1:21 PM EST): [facility] Triage Call: Based on what is [...] Continue synthroid Coronary artery disease invo lving [place] coronary artery of [place] heart without angina pectoris 07/03/2012 Overview (07/03/2012): [...] as of this encounter (statuses as of 08/01/2024) Resolved Problems Problem Noted Date Diagnosed Date [...] as of this encounter (statuses as of 08/01/2024) Immunizations Name Administration Dates Next Due COVID-19 mRNA, LNP-s, No Pre serve, 2-Dose Series ([employer]) 08/29/2021,10/23/2020,10/02/2020 COVID-19, MRNA-LNP, PF, 30 M CG/0.3 mL, 12 YRS AND ABOVE, IM ([employer]-Comirnaty) 08/04/2023 Covid-19, Mrna, Lnp-s, Pf, B ivalent, 30 Mcg, IM, 12 yrs and above ([employer]ive) 08/02/2022 Pneumococcal Conjugate Vacc, 13 Valent (Prevnar) [...] Telephone Encounter - Nanci Leiva RN - 08/01/2024 3:58 PM EST [facility] Telephonic Nurse Follow-Up Call [facility] Subprogram: Primary Care at Home Follow Up Call Type: Weekend Call Acute issue requiring follow-up call: Other: Follow [...] Needs: NO CHANGE from baseline supplemental oxygen needs, 3 LPM DME Needs: Nebulizer machine and supplies Medications: Current DTP: Other: Daughter gave 1/2 of Metolazone instead of full tablet. "It hits her too hard and she gets weak" Subjective: Condition Status: Improvement in symptoms but not at baseline Current Concerns: Per Josselyn, she only gave 1/2 of Metolazone tablet this morning, the full pill is too much for her. She did not weigh her because she was very unsteady on her feet. Is having increased urination compared to yesterday, so hopefully getting rid of some fluid. O2 @3 lpm, sat 91-92 w O2 on, drops to low 80's when O2 off if she is using bathroom, Doing her spirometry and that is helping her cough. CXR not done yet HH nurse did come yesterday, PT has not come yet but expecting them Mon or Follow up call set to check on CXR results and benefit of 1/2 tab Metolazone Disposition: Follow up call scheduled for tomorrow with COMMERCIAL ACCOUNTANT Contribution Solicitor Future Visits Scheduled: Future Appointments-next 60 days Date/Time Provider Specialty Dept Phone 08/04/2024 7:05 AM [facility] Draw Laboratory Processing [phone] 08/23/2024 12:30 PM Destiny Schultz RN [facility] [phone] 09/16/2024 3:00 PM Brandt Santacruz PA-C [facility] [phone] 10/01/2024 1:00 PM Kusum Jones CRNP Family Medicine [phone] 10/13/2024 11:30 AM Chandler Pena MD Urology [phone] 11/24/2024 1:40 PM (Arrive by 1:25 PM) Sheryl Pena PA-C Dermatology [phone] 04/18/2025 1:20 PM Verónica Benavides MD Family Medicine [phone] Nanci Leiva, POPPY documented in this encounter Plan of Treatment Upcoming Encounters Date Type Department Care Team (Late st Contact Info) Description 08/02/2024 10:30 AM EST Scheduled Telephone [facility], [facility] 132 [facility] [place] [address] [facility], Nurse [address] [place] [address] 08/04/2024 7:05 AM EST Laboratory Lab Mobile Phlebotomy [facility] [address] [facility] [place] [address] [facility] Draw [address] [facility] [place] [address] 08/23/2024 12:30 PM EST Home Visit [facility], [facility] 132 [facility] [place] [address] Destiny Schultz, POPPY 132 [facility] [place] [address] 09/16/2024 3:00 PM EST Home Visit [facility], [facility] 132 [facility] [place] [address] Brandt Santacruz PA-C 132 [facility] [place] [address] 10/01/2024 1:00 PM EST Telemedicine Family Medicine [address] [place] [phone] Kusum Jones CRNP [address] [place] [address] [place] [address] 10/13/2024 11:30 AM EST Telemedicine Urology, [facility] 132 [facility] [place] [address] Chandler Pena MD [address] [place] [address] 11/24/2024 1:40 PM EDT Office Visit Dermatology [address] [place] [address] Sheryl Pena PA-C [address] [place] [address] [place] [address] 04/18/2025 1:20 PM EDT Telemedicine Family Medicine [address] [place] [phone] Verónica Benavides MD [address] [place] [address] [place] [address] Health Maintenance Due Date Last Done Comments [...] Additional history exists CKD PHOS USE SMARTSET 64351 05/05/202504/25, 04/30/2024, 04/02/2024, Additional history exists CKD HGB USE SMARTSET 37680 05/26/202505/26, 05/26/2024, 05/07/2024, Additional history exists Pneumococcal [...] Documents on File Type Date Recorded 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
--- OUTSIDE RECORDS SUMMARY | 2024-08-08 16:52 | External Medical Summary | Summary of Care ---
Author Name Unknown Organization [facility] Address [address] [place] [address] Phone [phone] Care Team Providers Care Law Examiner Name Role Phone Verónica Benavides MD Primary Care Provide r Reason for Visit * Reason Onset Date Comments [facility]: Maintenance 07/31/2024 Encounter Details Date Type Department Care Team (Late st Contact Info) Description 07/31/2024 1:15 PM EST Scheduled Telephone [facility], [facility] [address] [place] [address] [facility], Nurse [facility] [address] [place] [address] Allergies Active Allergy Reactions Criticality Noted Date [...] 1 05/30/20 23 Active OneTouch Delica Plus [id number] ns:Type 2 diabetes mellitus with hemoglobin A1c goal of less than 8.0% ([facility]) Test up to two times daily or as directed by [facility] pharmacist 200 Each 3 07/11/20 [...] XL)Indications:Non -ischemic cardiomyopathy (HCC),Coronary artery disease involving [place] coronary artery of [place] heart without angina pectoris,HTN, goal below 140/90 [...] Assessment & Plan (08/29/2021 1:27 PM EST): [facility] Triage Call: Reviewed last [...] Assessment & Plan (01/14/2022 1:57 PM EDT): [facility] Call: I'm not sure who Dr [...] Assessment & Plan (08/29/2021 1:21 PM EST): [facility] Triage Call: Based on what is [...] Continue synthroid Coronary artery disease invo lving [place] coronary artery of [place] heart without angina pectoris 07/03/2012 Overview (07/03/2012): [...] mRNA, LNP-s, No Pre serve, 2-Dose Series ([employer]) 08/29/2021,10/23/2020,10/02/2020 COVID-19, MRNA-LNP, PF, 30 M CG/0.3 mL, 12 YRS AND ABOVE, IM ([employer]IA-Comirnaty) 08/04/2023 Covid-19, Mrna, Lnp-s, Pf, B ivalent, 30 Mcg, IM, 12 yrs and above ([employer]) 08/02/2022 Pneumococcal Conjugate Vacc, 13 Valent [...] encounter Miscellaneous Notes * Telephone Encounter - Kip Gutierrez MD - 07/31/2024 3:53 PM EST Recomm to give 1 dose of metolazone 2.5mg prior to tonight torsemide dose. Also recomm. extra torsemide 20mg in AM - could you pl inform pt/family. Thank you Kip Gutierrez MD * Telephone Encounter - Carol Portillo RN - 07/31/2024 3:24 PM EST [facility] Telephonic Nurse Follow-Up Call [facility] Subprogram: Primary Care at Home Follow Up Call Type: Weekend Call Acute issue requiring follow-up call: Other: [place] calls to check Shortness of breath? Spo2? [...] 8 days ago and was very effective [facility] nurse present today and was able to hear lung sounds today Disposition: Routed to [facility] and/or [facility] Care Team for further advice Future Visits Scheduled: Future Appointments-next 60 days Date/Time Provider Specialty Dept Phone 08/01/2024 10:30 AM [place], Nurse Lise Sosa [facility] [phone] 08/04/2024 7:05 AM [facility], [facility] Draw Laboratory Processing [phone] 08/23/2024 12:30 PM Destiny Schultz RN [facility] [phone] 09/16/2024 3:00 PM Brandt Santacruz PA-C [facility] [phone] 10/01/2024 1:00 PM Kusum Jones CRNP Family Medicine [phone] 10/13/2024 11:30 AM Chandler Pena MD Urology [phone] 11/24/2024 1:40 PM (Arrive by 1:25 PM) Sheryl Pena PA-C Dermatology [phone] 04/18/2025 1:20 PM Verónica Benavides MD Family Medicine [phone] Carol Portillo, RN documented in this encounter Plan of Treatment Upcoming Encounters Date Type Department Care Team (Late st Contact Info) Description 08/01/2024 10:30 AM EST Scheduled Telephone [facility] [place], [facility] 132 [facility] [place] [address] [facility], Nurse [facility] [place] [address] 08/04/2024 7:05 AM EST Laboratory Lab Mobile Phlebotomy [facility] [address] [facility] [address] [facility] Draw [address] [facility] [address] 08/23/2024 12:30 PM EST Home Visit [facility], [facility] [address] [place] [address] Destiny Schultz, POPPY [address] [place] [address] 09/16/2024 3:00 PM EST [facility] Visit [facility] [address] [place] [address] Brandt Santacruz PA-C [address] [place] [address] 10/01/2024 1:00 PM EST Telemedicine Family Medicine [address] [place] [phone] [address]usum Jones [address] [place] [address] 10/13/2024 11:30 AM EST Telemedicine Urology, [facility] [address] [place] [address] Chandler Pena MD 27 [place] [address] 11/24/2024 1:40 PM EDT Office Visit Dermatology [address] [place] [address] Sheryl Pena PA-C [address] [place] [address] [place] [address] 04/18/2025 1:20 PM EDT Telemedicine Family Medicine [address] [place] [phone] Verónica Benavides MD [address] [place] [address] [place] [address] Health Maintenance Due Date Last Done Comments [...] Additional history exists CKD PHOS USE SMARTSET 43219 05/05/202504/25, 04/30/2024, 04/02/2024, Additional history exists CKD HGB USE SMARTSET 68002 05/26/202505/26, 05/26/2024, 05/07/2024, Additional history exists Pneumococcal [...] Documents on File Type Date Recorded Patient Striker Off Expl anation Advance Directives and Living Will 08/10/2021 ADVANCE DIRECTIVE / LIVING WILL LIVING WILL Healthcare Agents on File Name Relationship [facility] Communication Josselyn Judd Adult Child Health Care Power of Attor nathalie Care Teams Law Examiner Relationship Specialty Start Date End Date Verónica Benavides MD [address] [place] [address] [place] [address] PCP - General Family Medicine 09/16/14 documented as of this encounter
--- OUTSIDE RECORDS SUMMARY | 2024-08-08 16:52 | External Medical Summary | Summary of Care ---
Author Name Unknown Organization [facility] Address [address] [place] [address] Phone [phone] Care Team Providers Care Home Health Aide Name Role Phone Verónica Benavides MD Primary Care Provide r Encounter Details Date Type Department Care Team (Late st Contact Info) Description 06/14/2024 Telephone Urology, [facility] 132 [facility] [place] [address] Chandler Pena MD 27 [facility] [place] [address] Allergies Active Allergy Reactions Criticality Noted [...] Strip 1 023 Active OneTouch Delica Plus [id number] ons:Type 2 diabetes mellitus with hemoglobin A1c goal of less than 8.0% ([facility]) Test up to two times daily or as directed by [facility] pharmacist 200 Each 3 Active Estrogens Conjugated [...] XL)Indications:No n-ischemic cardiomyopathy (HCC),Coronary artery disease involving [place] coronary artery of [place] heart without angina pectoris,HTN, goal below 140/90 [...] once a week. 0.5 mL 3 Active DIURETIC TITRATION PLAN If no improvement on day 3, contact [facility] for possible home visit 1 Each 024 2023 Discontinued(M edication/Dose Changed) Potassium Chloride [facility] 20 MEQ Oral Tablet Extended Release Take 1 Tablet by mouth 2 times a day with morning and evening meals. 180 Tablet 1 024 2023 Discontinued Torsemide 20 MG Oral Tablet (Demadex)Indicati ons:Heart failure, systolic, due to idiopathic cardiomyopathy (HCC) Take 3 Tablets by mouth in the morning and 3 Tablets in the evening. 024 2023 Discontinued [...] & Plan (08/29/2021 1:27 PM EST): [facility] Triage Call: Reviewed last C&S - [...] Assessment & Plan (01/14/2022 1:57 PM EDT): [facility] Call: I'm not sure who Dr Alberto [...] & Plan (08/29/2021 1:21 PM EST): [facility] Triage Call: Based on what is [...] synthroid Coronary artery disease invo lving [place] coronary artery of [place] heart without angina pectoris 07/03/2012 Overview (07/03/2012): [...] mRNA, LNP-s, No Pre serve, 2-Dose Series ([employer]) 08/29/2021,10/23/2020,10/02/2020 COVID-19, MRNA-LNP, PF, 30 M CG/0.3 mL, 12 YRS AND ABOVE, IM ([employer]) 08/04/2023 Covid-19, Mrna, Lnp-s, Pf, B ivalent, 30 Mcg, IM, 12 yrs and above ([employer]) 08/02/2022 Pneumococcal Conjugate Vacc, 13 Valent (Prevnar) [...] encounter Miscellaneous Notes * Telephone Encounter - Chandlre Pena MD - 06/15/2024 2:34 PM EDT Noted, will defer consideration of antibiotic therapy to inpatient service and consultants. Thx, HM * Telephone Encounter - Paris Santos LPN - 06/15/2024 11:20 AM EDT Patient is currently admitted to [facility]. Went to ER on 06/09 for worsening SOB x 1 week, 9 lb weight gain in 4 days despite increase in torsemide. Urine culture was discussed during ER visit. Looks like patient is pending SNF availability. I do not see that any antibiotics were ordered during this stay. There are no urinary complaints listed in any hospitalist or cardiology visit. * Telephone Encounter - Chandler Pena MD - 06/14/2024 5:21 PM EDT Patient's urine culture is positive for multidrug resistant bacteriuria. Would inquire regarding the patient's current symptomatology including the presence or absence of fevers. Patient may need Infectious referral disease due to the presence of multi-drug resistant bacteriuria and allergies to oral medication. DYLAN Villarreal documented in this encounter Plan of Treatment Upcoming Encounters Date Type Department Care Team (Late st Contact Info) Description 07/31/2024 1:15 PM EST Scheduled Telephone [facility], [place] [address] [address] [place] [address] [facility], Nurse [address] [place] [address] 08/01/2024 10:30 AM EST Scheduled Telephone [facility] [place], [place] [address] [address] [place] [address] [facility] Nurse [address] [place] [address] 08/04/2024 7:05 AM EST Laboratory Lab Mobile Phlebotomy [facility] [address] [facility] [address] [facility] Draw [address] [facility] [address] 08/23/2024 12:30 PM EST Home Visit [facility], [facility] [address] [place] [address] Destiny Shcultz, POPPY 132 [facility] [place] [address] 09/16/2024 3:00 PM EST Home Visit [facility], [facility] [address] [place] [address] Brandt Santacruz PA-C [address] [place] [address] 10/01/2024 1:00 PM EST Telemedicine Family Medicine [address] [place] [phone] Kusum Jones CRNP [address] [place] [address] [place] [address] 10/13/2024 11:30 AM EST Telemedicine Urology, [facility] 132 [facility] [place] [address] Chandler Pena MD [address] [place] [address] 11/24/2024 1:40 PM EDT Office Visit Dermatology [address] [place] [address] Sheryl Pena PA-C [address] [place] [address] [place] [address] 04/18/2025 1:20 PM EDT Telemedicine Family Medicine [address] [place] [phone] Verónica Benavides MD [address] [place] [address] [place] [address] Health Maintenance Due Date Last Done Comments [...] Additional history exists CKD PHOS USE SMARTSET 75198 05/05/202504/25, 04/30/2024, 04/02/2024, Additional history exists CKD HGB USE SMARTSET 90346 05/26/202505/26, 05/26/2024, 05/07/2024, Additional history exists Pneumococcal [...] Documents on File Type Date Recorded Patient Planning Management It Specialist Expl anation Advance Directives and Living Will 08/10/2021 ADVANCE DIRECTIVE / LIVING WILL LIVING WILL Healthcare Agents on File Name Relationship Healthcare Agent [facility] hang Communication Josselyn Judd Adult Child Health Care Power of Attor nathalie Care Teams Home Health Aide Relationship Specialty Start Date End Date Verónica Benavides MD [address] [place] [address] [place] [address] PCP - General Family Medicine 09/16/14 documented as of this encounter
--- OUTSIDE RECORDS SUMMARY | 2024-08-08 16:52 | External Medical Summary | Summary of Care ---
Author Name Unknown Organization [facility] Address [address] [place] [address] Phone [phone] Care Team Providers Care Sewer Line Photo Inspector Name Role Phone Verónica Benavides MD Primary Care Provide r Reason for Visit * Reason Onset Date Comments [facility]: Maintenance 08/02/2024 Encounter Details Date Type Department Care Team (Late st Contact Info) Description 08/02/2024 10:30 AM EST Scheduled Telephone [facility], [facility] [address] [place] [address] [facility], Nurse [facility] [address] [place] [address] Allergies Active Allergy Reactions Criticality Noted Date Comments Adhesive Tape Medium 01/30/2022 Ibuprofen Hives 01/13/2012 Aspirin Hives,Rash 09/15/2000 Sulfamethoxazole-Trimeth oprim Nausea/vomiting,Othe r (Please comment) 10/27/2020 Dizziness Ciprofloxacin Hcl 06/16/2019 Hoarse, dizzy,disoriented Morphine 09/21/2021 Blacked out Penicillins Hives,Rash 09/15/2000 Prednisone 12/30/2017 Weakness/memory changes/blurred vision documented as of this encounter (statuses as of 08/02/2024) Medications Danya meléndez/Device Kit Use up to [...] 1 05/30/20 23 Active OneTouch Delica Plus [id number] ns:Type 2 diabetes mellitus with hemoglobin A1c [...] XL)Indications:Non -ischemic cardiomyopathy (HCC),Coronary artery disease involving [place] [...] Assessment & Plan (08/29/2021 1:27 PM EST): [facility] Triage Call: Reviewed [...] Assessment & Plan (01/14/2022 1:57 PM EDT): [facility] Call: I'm not sure who [...] Assessment & Plan (08/29/2021 1:21 PM EST): [facility] Triage Call: Based on what [...] [place] heart without angina pectoris 07/03/2012 Overview (07/03/2012): [...] mRNA, LNP-s, No Pre serve, 2-Dose Series ([employer]) 08/29/2021,10/23/2020,10/02/2020 COVID-19, MRNA-LNP, PF, 30 M CG/0.3 mL, 12 YRS AND ABOVE, IM ([employer]-Comirnaty) 08/04/2023 Covid-19, Mrna, Lnp-s, Pf, B ivalent, 30 Mcg, IM, 12 yrs and above ([employer]) 08/02/2022 Pneumococcal Conjugate Vacc, 13 Valent (Prevnar) [...] Telephone Encounter - Janiya Cárdenas RN - 08/02/2024 12:35 PM EST [facility] Telephonic Nurse Follow-Up Call [facility] Subprogram: Primary Care at Home Follow Up [...] NO CHANGE from baseline supplemental oxygen needs wears at 3L DME Needs: Nebulizer machine and supplies Medications: Current DTP: Other: : Daughter gave 1/2 of Metolazone instead of full tablet. "It hits her too hardand she gets weak" Subjective: Condition Status: Symptoms resolved and back to baseline Current Concerns: Spoke to Josselyn, states that the pt is breathing much easier today and pt is much improved from Friday. Per Josselyn 1/2 dose of Metolazone worked well for the pt. Weight Sat: 235.0 lbs. Weight today 231.9 O2 sat this am without O2 was 88% and increased to 91% on 3L O2 Reports improvement in cough Offered further FC call follow up appts. Josselyn states that she will call [facility] intake if pt starts to worsen or decompensate in any way. Disposition: Issue resolved. All appropriate follow up scheduled. Future Visits Scheduled: Future Appointments-next 60 days Date/Time Provider Specialty Dept Phone 08/04/2024 7:05 AM [facility] Processing [phone] 08/23/2024 12:30 PM Destiny Schultz, RN [facility] [phone] 09/16/2024 3:00 PM Brandt Santacruz PA-C [facility] [phone] 10/01/2024 1:00 PM Kusum Jones CRNP Family Medicine [phone] 10/13/2024 11:30 AM Chandler Pena MD Urology [phone] 11/24/2024 1:40 PM (Arrive by 1:25 PM) Sheryl Pena PA-C Dermatology [phone] 04/18/2025 1:20 PM Verónica Benavides MD Family Medicine [phone] Janiya Cárdenas RN documented in this encounter Plan of Treatment Upcoming Encounters Date Type Department Care Team (Late st Contact Info) Description 08/04/2024 7:05 AM EST Laboratory Lab Mobile Phlebotomy [facility] [address] [place] [address] [facility] Draw [address] [place] [address] 08/23/2024 12:30 PM EST Home Visit [facility], [facility] [address] [facility] [place] [address] Destiny Schultz, POPPY [address] [place] [address] 09/16/2024 3:00 PM EST Home Visit [facility], [facility] [address] [place] [address] Brandt Santacruz PA-C [address] [place] [address] 10/01/2024 1:00 PM EST Telemedicine Family Medicine [address] [place] [phone] Kusum Jones CRNP [address] [place] [address] [place] [address] 10/13/2024 11:30 AM EST Telemedicine Urology, [facility] [place] [address] Chandler Pena MD [address] [facility] [place] [address] 11/24/2024 1:40 PM EDT Office Visit Dermatology [address] [place] [address] Sheryl Pena PA-C [address] [place] [address] [place] [address] 04/18/2025 1:20 PM EDT Telemedicine Family Medicine [address] [place] [phone] Verónica Benavides MD [address] [place] [address] [place] [address] Health Maintenance Due Date Last Done Comments [...] Additional history exists CKD PHOS USE SMARTSET 00121 05/05/202504/25, 04/30/2024, 04/02/2024, Additional history exists CKD HGB USE SMARTSET 58776 05/26/202505/26, 05/26/2024, 05/07/2024, Additional history exists Pneumococcal [...] Documents on File Type Date Recorded Patient Work Order Clerk Expl 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 p Communication Josselyn Judd Adult Child Health Care Power of Attor nathalie Care Teams Sewer Line Photo Inspector Relationship Specialty Start Date End Date Verónica Benavides MD [address] [place] [address] [place] [address] PCP - General Family Medicine 09/16/14 documented as of this encounter
--- OUTSIDE RECORDS SUMMARY | 2024-08-08 16:53 | External Medical Summary | Summary of Care ---
Author Name Unknown Organization [facility] Address [address] [place] [address] Phone [phone] Care Team Providers Care Executive Pastry Chef Name Role Phone Verónica Benavides MD Primary Care Provide r Encounter Details Date Type Department Care Team (Late st Contact Info) Description 04/23/2024 Telephone [facility] Medicine [address] [phone] Verónica Benavides MD [address] [place] [phone] Allergies Active Allergy Reactions Criticality Noted Date Comments Adhesive Tape Medium 01/30/2022 Ibuprofen Hives 01/13/2012 Aspirin Hives,Rash 09/15/2000 Sulfamethoxazole-Trimeth oprim Nausea/vomiting,Othe r (Please comment) 10/27/2020 Dizziness Ciprofloxacin Hcl 06/16/2019 Hoarse, dizzy,disoriented Morphine 09/21/2021 Blacked out Penicillins Hives,Rash 09/15/2000 Prednisone 12/30/2017 Weakness/memory changes/blurred vision documented as of this encounter (statuses as of 07/23/2024) Medications OneTouch Verio w/Device Kit Use up [...] Strip 1 023 Active OneTouch Delica Plus [id number] ons:Type 2 diabetes mellitus with hemoglobin A1c goal of less than 8.0% ([facility]) Test up to two times daily or as directed by [facility] pharmacist 200 Each 3 023 Active [...] pain with urination 6 Tablet 024 Active STOOL SOFTENER 100 MG PO TABS 3-4 tabs daily as needed 2023 Discontinued GLUCOSAMINE CHONDR 500 COMPLEX PO CAPS Take by mouth 2 times a day. 2023 Discontinued(R efill) MAGNESIUM OXIDE 400 MG PO TABS one pill each day 015 2023 Discontinued(R efill) Acetaminophen (APAP) 325 MG Tablet Take 1 Tablet by mouth every 6 hours as needed. 2023 Discontinued(M edication List Clean Up) Cyanocobalamin 1000 MCG Oral Tablet (Cyanocobalamin) Take 1 Tablet by mouth in the morning. 2023 Discontinued(M edication/Dose Changed) Nystatin 860285 UNIT/GM External Powder (Nystop)Indicatio ns:Lydia rash of groin Apply topically to affected area 2 times a day . 60 g 11 022 2023 Discontinued(M edication List Clean Up) Probiotic Acidophilus Bio[employer]eads Oral Capsule Take 1 Capsule by mouth every evening. Just with antibiotics 2023 Discontinued(R efill) D-Mannose 500 MG Oral Capsule Take by mouth 2 times a day. 2 caps two times daily 2023 Discontinued(R efill) Vitamin D-3 25 MCG (1000 UT) Oral Capsule Take 1 Capsule by mouth in the morning. 2023 Discontinued(R efill) Benzonatate 100 MG Oral Capsule Take 1 Capsule by mouth 3 times a day as needed for Cough. 30 Capsule 1 023 2023 Discontinued(M edication List Clean Up) Colchicine 0.6 MG Oral Tablet Take one twice for gout attack 8 Tablet 023 2023 Discontinued(M edication List Clean Up) Promethazine-DM 6.25-15 MG/5ML Oral Syrup Take 5 mL by mouth 4 times a day as needed for Cough. 120 mL 1 023 2023 Discontinued(M edication List Clean Up) Myrbetriq 25 MG Oral Tablet Extended Release 24 Hour (Mirabegron ER) Take 1 Tablet by mouth in the morning. 90 Tablet 3 023 2023 Discontinued(R efill) Levothyroxine Sodium 88 MCG Oral Tablet (Levoxyl)Indicati ons:Hypothyroidis m, unspecified type TAKE ONE TABLET BY MOUTH EVERY MORNING 30 MINS PRIOR TO FIRST MEAL OF THE DAY OR OTHER MEDS 90 Tablet 3 023 2023 Discontinued(R efill) Clotrimazole 1 % External Cream (Lotrimin)Indicat ions:Candidal intertrigo APPLY TO THE AFFECTED AREA(S) TWICE DAILY FOR FOURTEEN DAYS 60 g 2 024 2023 Discontinued(R efill) Potassium Chloride Laura ER 20 MEQ Oral Tablet Extended Release Take 1 Tablet by mouth 2 times a day with morning and evening meals. 180 Tablet 1 024 2023 Discontinued(R efill) DIURETIC TITRATION PLAN If no improvement on day 3, contact [facility] for possible home visit 1 Each 024 2023 Discontinued(M edication/Dose Changed) Meclizine HCl 25 MG Oral Tablet (Antivert)Indicat ions:Vertigo Take 1 tablet by mouth 3 times a day as needed for dizziness 30 Tablet 5 024 2023 Discontinued(R efill) Ondansetron HCl 4 MG Oral Tablet Take 1 Tablet by mouth every 6 hours as needed for Nausea. 20 Tablet 024 2023 Discontinued(R efill) Cephalexin 500 MG Oral Capsule Take 1 Capsule by mouth in the morning and 1 Capsule at noon and 1 Capsule before bedtime. Do all this for 10 days. 30 Capsule 024 2023 Discontinued(M edication List Clean Up) Trulicity 0.75 MG/0.5ML Subcutaneous Solution Pen-injector (Dulaglutide) Inject 0.75 mg under the skin once a week. 2 mL 3 2023 Discontinued(R efill) Omeprazole 20 MG Oral Capsule Delayed Release (PriLOSEC) Take 1 Capsule by mouth in the morning. One hour before the first meal of the day.. 90 Capsule 1 2023 Discontinued(R efill) Nitrofurantoin Monohyd Macro 100 MG Oral Capsule (Macrobid) Take 1 Capsule by mouth in the morning for 5 days. With food until gone. 5 Capsule 2023 Discontinued(M edication List Clean Up) Cefdinir 300 MG Oral Capsule (Omnicef) Take 1 Capsule by mouth in the morning and 1 Capsule before bedtime. Do all this for 3 days. 6 Capsule 024 2023 Discontinued(M edication List Clean Up) Spironolactone 25 MG Oral Tablet (Aldactone)Indica tions:Non-ischemi c cardiomyopathy (HCC) TAKE 1/2 TABLET BY MOUTH EVERY MORNING 45 Tablet 3 024 2023 Discontinued(R efill) Cephalexin 500 MG Oral CapsuleIndication s:Cellulitis of face Take 1 Capsule by mouth in the morning and 1 Capsule at noon and 1 Capsule before bedtime. Do all this for 7 days. 21 Capsule 024 2023 Discontinued(M edication List Clean Up) Doxycycline Hyclate 100 MG Oral CapsuleIndication s:Cellulitis of face Take 1 Capsule by mouth in the morning and 1 Capsule before bedtime. Do all this for 7 days. Until gone.. 14 Capsule 024 2023 Discontinued(M edication List Clean Up) Cephalexin 500 MG Oral Capsule Take 1 Capsule by mouth in the morning and 1 Capsule before bedtime. Do all this for 14 days. 28 Capsule 024 2023 Discontinued( edication List Clean Up) Fluorouracil 5 % External Cream (Efudex) Apply to site on right cheek twice daily x 6 weeks 40 g 024 2023 Discontinued( edication List Clean Up) Metoprolol Succinate ER 25 MG Oral Tablet Extended Release 24 Hour (toPROL XL)Indications:No n-ischemic cardiomyopathy (HCC),Coronary artery disease involving [place] coronary artery of [place] heart without angina pectoris,HTN, goal below 140/90 TAKE ONE TABLET BY MOUTH in the evening 90 Tablet 1 2023 Discontinued(R efill) Diclofenac Sodium 1 % External Gel (Voltaren) Apply topically to affected area 3 times a day as needed for Pain, Mild. 50 g 3 024 2023 Discontinued(R efill) metOLazone 2.5 MG Oral Tablet (Zaroxolyn) Take one tablet only when directed by clinician. 5 Tablet 024 2023 Discontinued( edication List Clean Up) Torsemide 20 MG Oral Tablet (Demadex)Indicati ons:Heart failure, systolic, due to idiopathic cardiomyopathy (HCC) take THREE tablets BY MOUTH EVERY MORNING, TWO tablets IN afternoon - additional tablet IN afternoon ONLY if directed by healthcare provider FOR weight gain of THREE lbs OR more 180 Tablet 3 024 2023 Discontinued(R efill) Cefdinir 300 MG Oral Capsule (Omnicef) Take 1 Capsule by mouth in the morning and 1 Capsule before bedtime. Do all this for 7 days. For 7 days. 14 Capsule 024 2023 Discontinued(M edication List Clean Up) documented as of this encounter (statuses as of 07/23/2024) Active Problems Problem Noted Date Diagnosed Date [...] Assessment & Plan (08/29/2021 1:27 PM EST): [facility] Triage Call: Reviewed last [...] Assessment & Plan (01/14/2022 1:57 PM EDT): [facility] Call: I'm not sure who [...] Assessment & Plan (08/29/2021 1:21 PM EST): [facility] Triage Call: Based on what [...] Continue synthroid Coronary artery disease invo lving [place] coronary artery of [place] heart without angina [...] as of this encounter (statuses as of 07/23/2024) Resolved Problems Problem Noted Date Diagnosed Date [...] as of this encounter (statuses as of 07/23/2024) Immunizations Name Administration Dates Next Due COVID-19 mRNA, LNP-s, No Pre serve, 2-Dose Series ([employer]) 08/29/2021,10/23/2020,10/02/2020 COVID-19, MRNA-LNP, PF, 30 M CG/0.3 mL, 12 YRS AND ABOVE, IM ([employer]-Comirnaty) 08/04/2023 Covid-19, Mrna, Lnp-s, Pf, B ivalent, [...] encounter Miscellaneous Notes * Telephone Encounter - Rachelle Higginbotham OSA - 04/23/2024 3:09 PM EDT Patients daughter dropped off some paperwork and receipts that they need dr. Gamino help with. Placed form in mail box. Daughters contact info is on papers to call with any questions documented in this encounter Plan of Treatment Upcoming Encounters Date Type Department Care Team (Late st Contact Info) Description 07/24/2024 9:45 AM EST Scheduled Telephone [facility], [facility] [address] [place] [address] [facility] Nurse [facility] [address] [place] [address] 07/25/2024 1:15 PM EST Scheduled Telephone [facility], [facility] [address] [place] [address] [facility] Nurse [facility] [address] [place] [address] 07/26/2024 12:20 PM EST Telemedicine [address] [phone] Verónica Benavides MD [address] [place] [address] [place] [address] 07/30/2024 2:30 PM EST Home Visit [facility], [facility] [address] [place] [address] Destiny Schultz, POPPY [address] [place] [address] 09/16/2024 3:00 PM EST Home Visit [facility], [facility] [address] [place] [address] Brandt Santacruz PA-C [address] [place] [address] 10/01/2024 1:00 PM EST Telemedicine [address] [phone] Kusum Jones CRNP [address] [place] [address] [place] [address] 10/13/2024 11:30 AM EST Telemedicine Urology, [facility] [address] [place] [address] Chandler Pena MD [address] [place] [address] 11/24/2024 1:40 PM EDT Office Visit Dermatology [address] [place] [address] Sheryl Pena PA-C [address] [place] [address] [place] [address] 04/18/2025 1:20 PM EDT Telemedicine Family Medicine [address] [place] [phone] Verónica Benavides MD [address] [place] [address] [place] [address] Health Maintenance Due Date Last Done Comments [...] Additional history exists CKD PHOS USE SMARTSET 12461 05/05/202504/25, 04/30/2024, 04/02/2024, Additional history exists CKD HGB USE SMARTSET 94771 05/26/202505/26, 05/26/2024, 05/07/2024, Additional history exists Pneumococcal [...] Documents on File Type Date Recorded 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
--- OUTSIDE RECORDS SUMMARY | 2024-08-08 16:53 | External Medical Summary | Summary of Care ---
Author Name Unknown Organization [facility] Address [address] [place] [address] Phone [phone] Care Team Providers Care Furnace Brazer Name Role Phone Verónica Benavides MD Primary Care Provide r Reason for Visit * Reason Onset Date Comments [facility]: Maintenance 07/24/2024 Encounter Details Date Type Department Care Team (Late st Contact Info) Description 07/24/2024 9:45 AM EST Scheduled Telephone [facility], [facility] [address] [place] [address] [facility], Nurse [facility] [address] [place] [address] Allergies Active Allergy Reactions Criticality Noted Date Comments Adhesive Tape Medium 01/30/2022 Ibuprofen Hives 01/13/2012 Aspirin Hives,Rash 09/15/2000 Sulfamethoxazole-Trimeth oprim Nausea/vomiting,Othe r (Please comment) 10/27/2020 Dizziness Ciprofloxacin Hcl 06/16/2019 Hoarse, dizzy,disoriented Morphine 09/21/2021 Blacked out Penicillins Hives,Rash 09/15/2000 Prednisone 12/30/2017 Weakness/memory changes/blurred vision documented as of this encounter (statuses as of 07/24/2024) Medications Danya meléndez/Device Kit Use up to [...] 1 05/30/20 23 Active OneTouch Delica Plus [id number] ns:Type 2 diabetes mellitus with hemoglobin A1c goal of less than 8.0% ([facility]) Test up to two times daily or as directed by [facility] pharmacist 200 Each 3 07/11/20 [...] XL)Indications:Non -ischemic cardiomyopathy (HCC),Coronary artery disease involving sokaogon coronary artery of sokaogon heart without angina pectoris,HTN, goal below 140/90 [...] as of this encounter (statuses as of 07/24/2024) Active Problems Problem Noted Date Diagnosed Date [...] Assessment & Plan (08/29/2021 1:27 PM EST): [facility] Triage Call: Reviewed last C&S - [...] Assessment & Plan (01/14/2022 1:57 PM EDT): [facility] Call: I'm not sure who [...] Assessment & Plan (08/29/2021 1:21 PM EST): [facility] Triage Call: Based on what is [...] Continue synthroid Coronary artery disease invo lving sokaogon coronary artery of sokaogon heart without angina pectoris 07/03/2012 Overview (07/03/2012): [...] as of this encounter (statuses as of 07/24/2024) Resolved Problems Problem Noted Date Diagnosed Date [...] as of this encounter (statuses as of 07/24/2024) Immunizations Name Administration Dates Next Due COVID-19 mRNA, LNP-s, No Pre serve, 2-Dose Series (Sarsys) 08/29/2021,10/23/2020,10/02/2020 COVID-19, MRNA-LNP, PF, 30 M CG/0.3 mL, 12 YRS AND ABOVE, IM (Taskhub-Comirnat) 08/04/2023 Covid-19, Mrna, Lnp-s, Pf, B ivalent, 30 Mcg, IM, 12 yrs and above (Sarsys) 08/02/2022 Pneumococcal Conjugate Vacc, 13 Valent (Prevnar) [...] Telephone Encounter - Beth Bailon RN - 07/24/2024 10:24 AM EST [facility] Telephonic Nurse Follow-Up Call [facility] Subprogram: Primary Care at Home Follow Up Call Type: 24 hour follow up Acute issue requiring follow-up call: Other: follow up on dtp, wt gain, edema Objective: 07/23/2024 12:45 PM 07/18/2024 1:26 PM 06/21/2024 12:23 PM 2024 2:29 PM 06/08/2024 1:49 PM VITALS ACROSS ENCOUNTERS BP 120/72 130/60 110/60 108/64 108/52 Pulse 71 72 80 75 Weight 108 kg BMI 44.99 kg/m2 Remote Patient Monitoring: NONE Oxygen Needs: NO CHANGE from baseline supplemental oxygen needs DME Needs: NO DME needs identified Medications: Current DTP: Add metolazone (Zaroxolyn) 2.5-5mg for 1 days. If using a potassium supplement, doublethe dose of the supplement will be given on the day of and on the day after the metolazone Subjective: Condition Status: Improvement in symptoms but not at baseline Current Concerns: Spoke with patient's daughter, Yary who reports pt doing much better. Took metolazone 2.5mg yesterday. Wt down to 233.1 lbs, yesterday 237 lbs Decreased swelling in legs. Decreased sob. Very tired, but feeling better. Bowels somewhat slow. Had a couple of dulcolax this morning. Disposition: Weekend call scheduled Future Visits Scheduled: Future Appointments-next 60 days Date/Time Provider Specialty Dept Phone 07/25/2024 1:15 PM [facility] [phone] 07/26/2024 12:20 PM Verónica Benavides MD Family Medicine Arrive at: Patient's Home [phone] 07/30/2024 2:30 PM Destiny Schultz, POPPY [facility] [phone] 09/16/2024 3:00 PM Brandt Santacruz PA-C [facility] [phone] 10/01/2024 1:00 PM Kusum Jones CRNP Family Medicine [phone] 10/13/2024 11:30 AM Chandler Pena MD Urology [phone] 11/24/2024 1:40 PM (Arrive by 1:25 PM) Sheryl Pena PA-C Dermatology [phone] 04/18/2025 1:20 PM Verónica Benavides MD Family Medicine [phone] Beth Bailon RN documented in this encounter Plan of Treatment Upcoming Encounters Date Type Department Care Team (Late st Contact Info) Description 07/25/2024 1:15 PM EST Scheduled Telephone [facility] [place], [address] [place] [address] [facility], Nurse [address] [place] [address] 07/26/2024 12:20 PM EST Telemedicine Family Medicine [address] [phone] Verónica Benavides MD [address] [place] [address] [place] [address] 07/30/2024 2:30 PM EST Home Visit [facility], [facility] 132 [facility] [place] [address] Destiny Schultz, POPPY 132 [facility] [place] [address] 09/16/2024 3:00 PM EST Home Visit [facility], [facility] 132 [facility] [place] [address] Brandt Santacruz PA-C 132 [facility] [place] [address] 10/01/2024 1:00 PM EST Telemedicine Family Medicine [address] [place] [phone] Kusum Jones [address] [place] [address] 10/13/2024 11:30 AM EST Telemedicine Urology, [facility] [address] [facility] [place] [address] Chandler Pena MD [address] [place] [address] 11/24/2024 1:40 PM EDT Office Visit Dermatology [address] [place] [address] Sheryl Pena PA-C [address] [place] [address] [place] [address] 04/18/2025 1:20 PM EDT Telemedicine Family Medicine [address] [place] [phone] Verónica Benavides MD [address] [place] [address] [place] [address] Health Maintenance Due Date [...] Additional history exists CKD PHOS USE SMARTSET 13770 05/05/202504/25, 04/30/2024, 04/02/2024, Additional history exists CKD HGB USE SMARTSET 86755 05/26/202505/26, 05/26/2024, 05/07/2024, Additional history exists Pneumococcal [...] Documents on File Type Date Recorded 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
--- OUTSIDE RECORDS SUMMARY | 2024-08-08 16:53 | External Medical Summary | Summary of Care ---
Author Name Unknown Organization [facility] Address [address] [place] [address] Phone [phone] Care Team Providers Care Quality Director Name Role Phone Verónica Benavides MD Primary Care Provide r Reason for Visit * Reason Onset Date Comments [facility]: Maintenance 07/25/2024 Encounter Details Date Type Department Care Team (Late st Contact Info) Description 07/25/2024 1:15 PM EST Scheduled Telephone [facility], [facility] [address] [place] [address] [facility], Nurse [facility] [address] [place] [address] Allergies Active Allergy Reactions Criticality Noted Date Comments Adhesive Tape Medium 01/30/2022 Ibuprofen Hives 01/13/2012 Aspirin Hives,Rash 09/15/2000 Sulfamethoxazole-Trimeth oprim Nausea/vomiting,Othe r (Please comment) 10/27/2020 Dizziness Ciprofloxacin Hcl 06/16/2019 Hoarse, dizzy,disoriented Morphine 09/21/2021 Blacked out Penicillins Hives,Rash 09/15/2000 Prednisone 12/30/2017 Weakness/memory changes/blurred vision documented as of this encounter (statuses as of 07/25/2024) Medications Danya meléndez/Device Kit Use up to [...] 1 05/30/20 23 Active OneTouch Delica Plus [id number] ns:Type 2 diabetes mellitus with hemoglobin A1c goal of less than 8.0% ([facility]) Test up to two times daily or as directed by [facility] pharmacist 200 Each 3 07/11/20 23 Active [...] XL)Indications:Non -ischemic cardiomyopathy (HCC),Coronary artery disease involving kalispel coronary artery of kalispel heart without angina pectoris,HTN, goal below 140/90 [...] as of this encounter (statuses as of 07/25/2024) Active Problems Problem Noted Date Diagnosed Date [...] Assessment & Plan (08/29/2021 1:27 PM EST): [facility] Triage Call: Reviewed last [...] Assessment & Plan (01/14/2022 1:57 PM EDT): [facility] Call: I'm not sure who [...] Assessment & Plan (08/29/2021 1:21 PM EST): [facility] Triage Call: Based on what is [...] Continue synthroid Coronary artery disease invo lving kalispel coronary artery of kalispel heart without angina pectoris 07/03/2012 Overview (07/03/2012): [...] as of this encounter (statuses as of 07/25/2024) Resolved Problems Problem Noted Date Diagnosed Date [...] as of this encounter (statuses as of 07/25/2024) Immunizations Name Administration Dates Next Due COVID-19 mRNA, LNP-s, No Pre serve, 2-Dose Series (Yecuris) 08/29/2021,10/23/2020,10/02/2020 COVID-19, MRNA-LNP, PF, 30 M CG/0.3 mL, 12 YRS AND ABOVE, IM (InforSense-Comirnat) 08/04/2023 Covid-19, Mrna, Lnp-s, Pf, B ivalent, 30 Mcg, IM, 12 yrs and above (Yecuris) 08/02/2022 Influenza, Whole Virus 08/07/2000 Pneumococcal Conjugate [...] encounter Miscellaneous Notes * Telephone Encounter - Marija Londono RN - 07/25/2024 12:31 PM EST Received call back from dtr Josselyn She reports pt's weight today is 230 lbs and she is back to baseline States she has been moving her bowels and her urine looks good Does not have any concerns at this time * Telephone Encounter - Marija Londono RN - 07/25/2024 9:45 AM EST Telephone call to f/u on DTP Pt had dose of Metolazone 2.5mg on Friday Weight was 237 lbs on Friday, 233.1 lbs yesterday No answer on dtr's line - left message on VM Called pt's number and spoke with her. She reports she has not done much yet this morning. Reports edema in legs has improved Denies increased SOB Had dulcolax yesterday and had two good sized bowel movements. Denies any concerns at this time - has caregiver with her now. States they will get her weight soon and call in if there is a weight gain of 2- 3 lbs. Advised to call [facility] with any red flags/concerns. Has appt with PCP tomorrow and f/u with RNCM on Friday. documented in this encounter Plan of Treatment Upcoming Encounters Date Type Department Care Team (Late st Contact Info) Description 07/26/2024 12:20 PM EST Telemedicine Family [address] [phone] Verónica Benavides MD [address] [place] [address] [place] [address] 07/30/2024 2:30 PM EST Home Visit [facility] [place], [facility] [address] [place] [address] Destiny Schultz RN 132 [facility] [place] [address] 09/16/2024 3:00 PM EST Home Visit [facility] [place], [facility] [address] [place] [address] Brandt Santacruz PA-C [address] [place] [address] 10/01/2024 1:00 PM EST Telemedicine Family [address] [place] [phone] Kusum Jones CRNP [address] [place] [address] [place] [address] 10/13/2024 11:30 AM EST Telemedicine Urology, [facility] [address] [place] [address] Chandler Pena MD [address] [place] [address] 11/24/2024 1:40 PM EDT Office Visit Dermatology [address] [place] [address] Sheryl Pena PA-C [address] [place] [address] [place] [address] 04/18/2025 1:20 PM EDT Telemedicine Family Medicine [address] [place] [phone] Veróncia Benavides MD [address] [place] [address] [place] [address] Health Maintenance Due Date Last Done Comments [...] Additional history exists CKD PHOS USE SMARTSET 66639 05/05/202504/25, 04/30/2024, 04/02/2024, Additional history exists CKD HGB USE SMARTSET 84361 05/26/202505/26, 05/26/2024, 05/07/2024, Additional history exists Pneumococcal [...] Documents on File Type Date 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
--- OUTSIDE RECORDS SUMMARY | 2024-08-08 16:53 | External Medical Summary | Summary of Care ---
Author Name Unknown Organization [facility] Address [address] [place] [address] Phone [phone] Care Team Providers Care Technical Planner Name Role Phone Verónica Benavides MD Primary Care Provide r Reason for Visit * Reason Onset Date Comments Appointment 07/30/2024 Encounter Details Date Type Department Care Team (Late st Contact Info) Description 07/30/2024 Telephone [facility], [place] [address] [place] [id number] Liliam Hsieh, BETTY [address] [place] [address] Appointment (/) Allergies Active Allergy Reactions Criticality [...] 1 05/30/20 23 Active OneTouch Delica Plus [id number] ns:Type 2 diabetes mellitus with hemoglobin A1c goal of less than 8.0% ([facility]) Test up to two times daily or as directed by [facility] pharmacist 200 Each 3 07/11/20 [...] XL)Indications:Non -ischemic cardiomyopathy (HCC),Coronary artery disease involving nome coronary artery of nome heart without angina pectoris,HTN, goal below 140/90 [...] & Plan (08/29/2021 1:27 PM EST): [facility] Triage Call: [...] Assessment & Plan (01/14/2022 1:57 PM EDT): [facility] Call: I'm not sure who [...] & Plan (08/29/2021 1:21 PM EST): [facility] Triage Call: Based on [...] Continue synthroid Coronary artery disease invo lving nome coronary artery of nome heart without angina pectoris 07/03/2012 Overview (07/03/2012): [...] mRNA, LNP-s, No Pre serve, 2-Dose Series (LedgerX) 08/29/2021,10/23/2020,10/02/2020 COVID-19, MRNA-LNP, PF, 30 M CG/0.3 mL, 12 YRS AND ABOVE, IM ([employer]) 08/04/2023 Covid-19, Mrna, Lnp-s, Pf, B ivalent, 30 Mcg, IM, 12 yrs and above (LedgerX) 08/02/2022 Pneumococcal Conjugate Vacc, 13 Valent (Prevnar) [...] Encounter - Liliam Hsieh OSA - 07/30/2024 2:38 PM EST TT request from Rocael layton to order the cxr, I faxed to [facility] and will cb to confirm receipt in half hour and then another request in TT form Shaun Schultz to schedule weekend calls to fu on Shortness of breath? Spo2? How is she feeling? Scheduled calls for all weekend per this request documented in this encounter Plan of Treatment Upcoming Encounters Date Type Department Care Team (Late st Contact Info) Description 07/31/2024 1:15 PM EST Scheduled Telephone [facility] [address] [place] [address] [facility] Nurse [address] [place] [address] 08/01/2024 10:30 AM EST Scheduled Telephone [facility] [place], [facility] [address] [place] [address] [facility] Nurse [address] [place] [address] 08/04/2024 7:05 AM EST Laboratory Lab Mobile Phlebotomy [facility] [address] [facility] [place] [address] [facility], [facility] Mobile Home Draw [address] [facility] [place] [address] 08/23/2024 12:30 PM EST [facility] Visit [facility], [facility] 132 [facility] [place] [address] Destiny Schultz, POPPY 132 [facility] [place] [address] 09/16/2024 3:00 PM EST [facility] Visit [facility], [facility] 132 [facility] [place] [address] Brandt Santacruz PA-C 132 [facility] [place] [address] 10/01/2024 1:00 PM EST Telemedicine Family Medicine [address] [place] [phone] Kusum Jones CRNP [address] [place] [address] [place] [address] 10/13/2024 11:30 AM EST Telemedicine Urology, [facility] 132 [facility] [place] [address] Chandler Pena MD [address] [place] [address] 11/24/2024 1:40 PM EDT Office Visit Dermatology [address] [place] [address] Sheryl Pena PA-C [address] [place] [address] [place] [address] 04/18/2025 1:20 PM EDT Telemedicine Family Medicine [address] [place] [phone] Verónica Benavides MD [address] [place] [address] [place] [address] Health Maintenance Due Date Last Done Comments [...] Additional history exists CKD PHOS USE SMARTSET 95675 05/05/202504/25, 04/30/2024, 04/02/2024, Additional history exists CKD HGB USE SMARTSET 26266 05/26/202505/26, 05/26/2024, 05/07/2024, Additional history exists Pneumococcal [...] Documents on File Type Date Recorded Patient Fishery Division Chief Expl anation Advance Directives and Living Will 08/10/2021 ADVANCE DIRECTIVE / LIVING WILL LIVING WILL Healthcare Agents on File Name Relationship Healthcare Agent [facility] Communication Josselyn Judd Adult Child Health Care Power of Attor nathalie Care Teams Technical Planner Relationship Specialty Start Date End Date Verónica Benavides MD [address] [place] [address] [place] [address] PCP - General Family Medicine 09/16/14 documented as of this encounter
--- OUTSIDE RECORDS SUMMARY | 2024-08-08 16:53 | External Medical Summary | Summary of Care ---
Author Name Unknown Organization [facility] Address [address] [place] [address] Phone [phone] Care Team Providers Care Hydroelectric Production Manager Name Role Phone Verónica Benavides MD Primary Care Provide r Reason for Visit * Reason Onset Date Comments Hospital Follow-Up Hospital Follow-Up 07/26/2024 Encounter Details Date Type Department Care Team (Latest Contact Info) Description 07/26/2024 12:20 PM [facility] Telemedicine Family Medicine [address] [phone] Verónica Benavides MD [address] [place], [place] [address] [address] Hospital discharge follow-up*; Slow transit constipation; Heart failure, systolic, due to idiopathic cardiomyopathy (HCC); Nonrheumatic aortic valve stenosis; Anemia, unspecified type; 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 Allergies Active Allergy Reactions Criticality Noted Date Comments Adhesive Tape Medium 01/30/2022 Ibuprofen Hives 01/13/2012 Aspirin Hives,Rash 09/15/2000 Sulfamethoxazole-Trimeth oprim Nausea/vomiting,Othe r (Please comment) 10/27/2020 Dizziness Ciprofloxacin Hcl 06/16/2019 Hoarse, dizzy,disoriented Morphine 09/21/2021 Blacked out Penicillins Hives,Rash 09/15/2000 Prednisone 12/30/2017 Weakness/memory changes/blurred vision documented as of this encounter (statuses as of 07/26/2024) Medications OneTouch Verio w/Device Kit Use up [...] 1 05/30/20 23 Active OneTouch Delica Plus [id number] ns:Type 2 diabetes mellitus with hemoglobin A1c [...] XL)Indications:Non -ischemic cardiomyopathy (HCC),Coronary artery disease involving [place] coronary artery of [place] heart without angina pectoris,HTN, goal below 140/90 [...] as of this encounter (statuses as of 07/26/2024) Active Problems Problem Noted Date Diagnosed Date [...] Assessment & Plan (08/29/2021 1:27 PM EST): [facility] Triage Call: Reviewed last [...] Assessment & Plan (01/14/2022 1:57 PM EDT): [facility] Call: I'm not sure [...] Assessment & Plan (08/29/2021 1:21 PM EST): [facility] Triage Call: Based on what [...] Continue synthroid Coronary artery disease invo lving [place] coronary artery of [place] heart without angina pectoris 07/03/2012 Overview (07/03/2012): [...] as of this encounter (statuses as of 07/26/2024) Resolved Problems Problem Noted Date Diagnosed Date [...] as of this encounter (statuses as of 07/26/2024) Immunizations Name Administration Dates Next Due COVID-19 mRNA, LNP-s, No Pre serve, 2-Dose Series ([employer]) 08/29/2021,10/23/2020,10/02/2020 COVID-19, MRNA-LNP, PF, 30 M CG/0.3 mL, 12 YRS AND ABOVE, IM ([facility] 08/04/2023 Covid-19, Mrna, Lnp-s, Pf, B ivalent, 30 Mcg, IM, 12 yrs and above ([employer]) 08/02/2022 Pneumococcal Conjugate Vacc, 13 Valent (Prevnar) [...] * Patient Instructions* Verónica Benavides MD - 07/26/2024 12:23 PM EST Taking Medicine Safely Medicine is [...] street drugs, herbs, supplements, or even some mdnc-sgt-vpkenau medicines can be harmful. Talk to your [...] to get rid of medicine: Call your [facility] or [facility]'s household trash and recycling service and ask if a drug take-back program is available in your community. Call your local pharmacy and ask the right way to get rid of the medicine. Go to http://www.fda.gov/ForConsumers/ConsumerUpdates/xdq713087 to learn how to get rid of [...] brand-name medicine, unless their doctor says otherwise. 5386-[address] [facility], [address] [place] [address]. All rights reserved. This information is not [...] best to keep a sense of humor. 9859-3170 [facility], [address] [place] [address]. All rights reserved. This information is not [...] and pharmacist about all the prescription and ital-lcy-zqfdkoq medicines you take.This includes vitamins and herbal remedies. Tell your doctor and pharmacist if you have any medical conditions or allergies to any medicine or food, or if you are or . Keep a list of all your medicines. Use the sample to the right as a guide for the type of information needed. 2546-5187 [facility], [address] [place] [address], [place] [address]. All rights reserved. This information is not intended as a substitute for professional medical care. Always follow your healthcare professional's instructions. documented in this encounter Progress Notes * Verónica Benavides MD - 07/26/2024 12:23 PM EST SUBJECTIVE: Regla Castano is a 89 year old female. Chief Complaint Patient presents with Hospital Follow-Up Hospital Follow-Up Recent Admission: Patient was recently admitted to [facility] on 07/20/24. The date of discharge was 07/22/24. Discharge report received and reviewed. HPI: Brief Clinical History Ms. Castano is a 89 year old female last seen in [facility] on 07/25/2024 by Nurse [facility] She has a h/o the following chronic [...] hospital or clinic location. After connecting through Via optron[employer],patient was verified with two unique identifiers. Patient (or authorized legal insurance account representative) was then informed that this was a Telemedicine visit and being conducted confidentially over secure lines. Methods to assure confidentiality were taken. Patient acknowledged consent and understanding of pr ivacy and security of the Telemedicine visit. The patient agreed to participate. Admitted to [facility] 07/20/24-07/12/24 with severe constipation. Patient was seen on Video Visit 07/19/24 for hospital follow-up for ESBL E Coli UTI (07/04-07/08/24) and then had rehab stay at [facility] and had returned home on 07/17/24. Her weight was up to 238.9 pounds on home scales that morning of her Video visit, and she had been constipated and had taken several doses of laxatives. Her torsemide was increased to 90 mg twice daily for 2 days and to monitor daily weights. However, on 07/20/24, she was still very constipated and daughter called to see if [facility] could give an enemain the ome and advised to go to the ER due to comorbidities. KUB showed very large amount of stool.In the ED, enema had a very small return and she was given another one with better results. However, she was extremely weak and could not stand after so she was admitted for observation. KUB on 07/21/24 showed improvement but still with moderate amount of stool. She was continued on laxatives and stool softeners and continued to move bowels. Venous doppler on 07/21/24 was negative for DVT and showed bilateral calf soft tissue edema. KUB on 07/22/24 shoed significantly reduced formed stool throughout the colon. She was then discharged to home. No medications were changed. She was seen by [facility] on Telemedicine visit 07/23/24 due to wheezing, shortness of breath, weight gain, and swelling. She was given one dose of metolazone that day before her torsemide. It worked very well this time and has not always worked that well. Her oxygen level was also in the 80s and was advised to keep the oxygen on all the time, which is helping. It drops to the 80s if she takes it off for even 20 minutes. She was just using it at night before. Also using incentive spirometer. Her weight today was 230.5 pounds and was 230 pounds yesterday. Her breathing is better although she does not like wearing the oxygen. Has not heard from PT yet. Was ordered 07/16/24. Bowels are moving well still. The leg edema is improved per daughter. Patient Active Problem List Diagnosis GENERAL OSTEOARTHROSIS Hypothyroidism DYSLIPIDEMIA, GOAL LDL BELOW 100 Aspirin allergy LBBB (left bundle branch block) First degree atrioventricular block Coronary artery disease involving [place] coronary artery of [place] heart without angina pectoris ACEI/ARB contraindicated Type 2 diabetes mellitus with hemoglobin A1c goal of less than 8.0% (HCC) Non-ischemic cardiomyopathy (HCC) Heart failure, systolic, due to idiopathic cardiomyopathy (HCC) Aortic valve stenosis 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, without long-term current use of insulin ([facility]) Lymphedema of both lower extremities Benign paroxysmal vertigo of both ears Gastroesophageal reflux disease without esophagitis Type 2 diabetes mellitus with mild nonproliferative diabetic retinopathy without macular edema, right eye ([facility]) 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 Do not use for more than one week. Do not cut, crush or chew 40 Tablet 1 miacosa In Vitro Strip (Glucose Blood) TEST UP TO FOUR TIMES DAILY 400 Strip 1 [employer] Delica Plus [id number] Test up to two times daily or as directed by [facility] pharmacist 200 Each 3 Estrogens Conjugated 0.625 MG/GM Vaginal Cream (Premarin) Administer 0.5 g into the vagina every night at bedtime. Pea-sized amount around vulvar area nightly 30 g 5 Phenazopyridine HCl 200 MG Oral Tablet (Pyridium) [...] morning and evening meals. 180 Tablet 3 metOLazone 2.5 MG Oral Tablet (Zaroxolyn) Take one tab only as directed with diuretic titration plan DIURETIC TITRATION PLAN If no improvement on day 3, contact heart failure managing provider. 1 Each0 No current facility-administered medications for this visit. [...] Eyes: negative Ears/Nose/Throat: pt denies:, deafness, tinnitus, vertigo Respiratory: +as per HPI Cardiovascular: +as per HPI Gastrointestinal: +constipation as above Genitourinary: +recurrent ESBL E Coli UTIs Musculoskeletal: pt denies significant joint pain or stiffness Neurologic: pt denies:, headaches, syncope, and seizures Psychiatric: pt denies:, sleep disturbance, anxiety, nervousness, and depression Hematologic/Lymphatic/Immunologic: +anemia Endocrine: +type 2 diabetes PHYSICAL EXAM: General: alert, no distress, well nourished, and well developed Neuro Exam: alert & oriented x 3 with fluent speech ASSESSMENT: Hospital discharge follow-up (Primary) - DISCH MED RECON CUR MED LIS Slow transit constipation--improved after several enemas at the hospital. Continue bowel regimen. Bowels moving much better now. Heart failure, systolic, due to idiopathic cardiomyopathy (HCC)--weight is down and shortness of breath improved after a dose of metolazone on 07/23/24 through [facility]. Continue torsemide 80 mg twice daily. Continue daily weights. Check BMP via mobile lab. Did take extra potassium when given the metolazone. - BASIC METABOLIC PANEL; Future; Expected date: 07/26/2024 Nonrheumatic aortic valve stenosis--severe and inoperable. Limits functional status. Anemia, unspecified type--check follow-up CBC via mobile lab. Iron and vitamin levels OK. Declines hematology referral. 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 ESBL E. 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--no current UTI symptoms. Follows with urology. PLAN: Continue present medication(s): Schedule labs: CBC w/diff and BMP Patient education: Discussed bowel regimen, diuretic protocol Follow up as scheduled. I spent a total of 40-54 minutes (exact time 40 mins) minutes on the date of service in preparation, delivery, and documentation of the care provided to Regla Castano excluding any time spent in performance of separately billed services. Verónica Benavides MD documented in this encounter Plan of Treatment Upcoming Encounters Date Type Department Care Team (Late st Contact Info) Description 07/30/2024 2:30 PM EST [facility] Visit [facility] [address] [place] [phone] Destiny Schultz RN [address] [place] [address] 09/16/2024 3:00 PM EST [facility] Visit [facility] [address] [place] [address] Brandt Santacruz PA-C [address] [place] [address] 10/01/2024 1:00 PM EST Telemedicine Family Medicine [address] [phone] Kusum Jones CRNP [address] [place] [address] [place] [address] 10/13/2024 11:30 AM EST Telemedicine Urology, [facility] [address] [facility] [place] [address] Chandler Pena MD [address] [place] [address] 11/24/2024 1:40 PM EDT Office Visit Dermatology [address] [place] [address] Sheryl Pena PA-C [address] [place] [address] [place] [address] 04/18/2025 1:20 PM EDT Telemedicine Family Medicine [address] [place] [phone] Verónica Benavides MD [address] [place] [address] [place] [address] Scheduled Orders Name Type Priority Associated Diagnoses Orde r Schedule CBC WITH WBC DIFFERENTIAL Lab Routine Anemia, unspecified type Expected: 07/26/2024 (Approximate), Expires: 07/26/2025 BASIC METABOLIC PANEL Lab Routine Heart failure, systolic, due to idiopathic cardiomyopathy (HCC) Expected: 07/26/2024 (Approximate), Expires: 07/26/2025 Health Maintenance Due Date Last Done Comments [...] Additional history exists CKD PHOS USE SMARTSET 22787 05/05/202504/25, 04/30/2024, 04/02/2024, Additional history exists CKD HGB USE SMARTSET 45645 05/26/202505/26, 05/26/2024, 05/07/2024, Additional history exists Pneumococcal [...] pacemaker in situ Coronary artery disease involving [place] coronary artery of [place] heart without angina pectoris Hypertensive heart and [...] less than 8.0% ([facility]) Drug-induced constipation Other constipation Gastroesophageal reflux [...] stage 3a chronic kidney disease (HCC)- Primary Hospital discharge follow-up- Primary Other follow-up examination Slow transit constipation Heart failure, systolic, due to idiopathic cardiomyopathy (HCC) Unspecified systolic heart failure Nonrheumatic aortic valve stenosis Aortic valve disorders Anemia, unspecified type 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 Carrier or suspected carrier of other specified bacterial diseases documented in this encounter Additional Health Concerns Infection Onset Date Last Indicated Resolved Time ESBL 06/07/2024 06/07/2024 documented as of this encounter Advance Directives Documents on File Type Date Recorded Patient It Lead Expl 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 Communication Josselyn Judd Adult Child Health Care Power of Attor nathalie Care Teams Hydroelectric Production Manager Relationship Specialty Start Date End Date Verónica Benavides MD [address] [place] [address] [place] [phone] PCP - General Family Medicine 09/16/14 documented as of this encounter
--- OUTSIDE RECORDS SUMMARY | 2024-08-08 16:53 | External Medical Summary | Summary of Care ---
Author Name Unknown Organization [facility] Address [address] [place] [address] Phone [phone] Care Team Providers Care Client Portfolio Manager Name Role Phone Verónica Benavides MD Primary Care Provide r Reason for Visit * Reason Onset Date Comments [facility]: Maintenance 07/25/2024 Encounter Details Date Type Department Care Team (Late st Contact Info) Description 07/25/2024 1:15 PM EST Scheduled Telephone [facility], [facility] [address] [place] [address] [facility], Nurse [facility] [address] [place] [address] Allergies Active Allergy Reactions Criticality Noted Date [...] 1 05/30/20 23 Active OneTouch Delica Plus [id number] ns:Type 2 diabetes mellitus with hemoglobin A1c goal of less than 8.0% ([facility]) Test up to two times daily or as directed by [facility] pharmacist 200 Each 3 07/11/20 [...] XL)Indications:Non -ischemic cardiomyopathy (HCC),Coronary artery disease involving [place] coronary [...] Assessment & Plan (08/29/2021 1:27 PM EST): [facility] Triage Call: Reviewed last C&S - treated [...] Assessment & Plan (01/14/2022 1:57 PM EDT): [facility] Call: I'm not sure who Dr [...] Assessment & Plan (08/29/2021 1:21 PM EST): [facility] Triage Call: Based on what is described [...] of [place] heart without angina pectoris 07/03/2012 Overview (07/03/2012): [...] mRNA, LNP-s, No Pre serve, 2-Dose Series ([employer]) 08/29/2021,10/23/2020,10/02/2020 COVID-19, MRNA-LNP, PF, 30 M CG/0.3 mL, 12 YRS AND ABOVE, IM ([employer]) 08/04/2023 Covid-19, Mrna, Lnp-s, Pf, B ivalent, 30 Mcg, IM, 12 yrs and above ([employer]) 08/02/2022 Pneumococcal Conjugate Vacc, 13 Valent (Prevnar) [...] of 2- 3 lbs. Advised to call [facility] with any red flags/concerns. Has appt with PCP tomorrow and f/u with RNCM on Friday. documented in this encounter Plan of Treatment Upcoming Encounters Date Type Department Care Team (Late st Contact Info) Description 07/26/2024 12:20 PM EST Telemedicine Family Medicine [address] [phone] Veróniac Benavides MD [address] [place] [address] [place] [address] 07/30/2024 2:30 PM EST [facility] Visit [facility], [facility] 132 [facility] [place] [address] Destiny Schultz, POPPY 132 [facility] [place] [address] 09/16/2024 3:00 PM EST Home Visit [facility], [facility] [address] [facility] [place] [address] Brandt Santacruz PA-C 132 [facility] [place] [address] 10/01/2024 1:00 PM EST Telemedicine Family Medicine [address] [place] [phone] Kusum Jones CRNP [address] [place] [address] [place] [address] 10/13/2024 11:30 AM EST Telemedicine Urology, [facility] [address] [facility] [place] [address] Chandler Pena MD [address] [place] [address] 11/24/2024 1:40 PM EDT Office Visit Dermatology [address] [place] [address] Sheryl Pena PA-C [address] [place] [address] [place] [address] 04/18/2025 1:20 PM EDT Telemedicine Family Medicine [address] [place] [phone] Verónica Benavides MD [address] [place] [address] [place] [address] Health Maintenance Due Date [...] Additional history exists CKD PHOS USE SMARTSET 44148 05/05/202504/25, 04/30/2024, 04/02/2024, Additional history exists CKD HGB USE SMARTSET 71155 05/26/202505/26, 05/26/2024, 05/07/2024, Additional history exists Pneumococcal [...] Documents on File Type Date Recorded Patient Flight Steward Expl anation Advance Directives and Living Will 08/10/2021 ADVANCE DIRECTIVE / LIVING WILL LIVING WILL Healthcare Agents on File Name Relationship Healthcare Agent Relationsga p Communication Josselyn [facility] Adult Child Health Care Power of Attor nathalie Care Teams Client Portfolio Manager Relationship Specialty Start Date End Date Verónica Benavides MD [address] [place] [address] [place] [phone] PCP - General Family Medicine 09/16/14 documented as of this encounter
--- OUTSIDE RECORDS SUMMARY | 2024-08-08 16:53 | External Medical Summary | Summary of Care ---
Author Name Unknown Organization [facility] Address [address] [place] [address] Phone [phone] Care Team Providers Care Spinning Lathe Operator Hydraulic Name Role Phone Verónica Benavides MD Primary Care Provide r Encounter Details Date Type Department Care Team (Late st Contact Info) Description 07/26/2024 Population Health External Data Unspecified Department Allergies Active Allergy Reactions Criticality Noted Date Comments Adhesive Tape Medium 01/30/2022 Ibuprofen Hives 01/13/2012 Aspirin Hives,Rash 09/15/2000 Sulfamethoxazole-Trimeth oprim Nausea/vomiting,Othe r (Please comment) 10/27/2020 Dizziness Ciprofloxacin Hcl 06/16/2019 Hoarse, dizzy,disoriented Morphine 09/21/2021 Blacked out Penicillins Hives,Rash 09/15/2000 Prednisone 12/30/2017 Weakness/memory changes/blurred vision documented as of this encounter (statuses as of 07/26/2024) Medications CrowdmarkTouch Verio w/Device Kit Use up to 4 [...] Strip 1 05/30/20 Active OneTouch Delica Plus [id number] ns:Type 2 diabetes mellitus with hemoglobin A1c goal of less than 8.0% ([facility]) Test up to two times daily or as directed by [facility] pharmacist 200 Each 3 07/11/20 Active Estrogens Conjugated 0.625 MG/GM Vaginal Cream (Premarin) Administer 0.5 g into the vagina every night at bedtime. Pea-sized amount around vulvar area nightly 30 g 5 07/14/20 Active Phenazopyridine HCl 200 MG Oral Tablet [...] XL)Indications:Non -ischemic cardiomyopathy (HCC),Coronary artery disease involving comanche coronary [...] DAILY FOR FOURTEEN DAYS 60 g 2 10/01/20 24 Active Trulicity 0.75 MG/0.5ML Subcutaneous Solution [...] Assessment & Plan (08/29/2021 1:27 PM EST): [facility] Triage Call: Reviewed last [...] Assessment & Plan (01/14/2022 1:57 PM EDT): [facility] Call: I'm not sure who [...] Assessment & Plan (08/29/2021 1:21 PM EST): [facility] Triage Call: Based on what [...] of comanche heart without angina pectoris 07/03/2012 Overview (07/03/2012): [...] mRNA, LNP-s, No Pre serve, 2-Dose Series (ReDigi) 08/29/2021,10/23/2020,10/02/2020 COVID-19, MRNA-LNP, PF, 30 M CG/0.3 mL, 12 YRS AND ABOVE, IM ([employer]ak-ComirnatHiveLive) 08/04/2023 Covid-19, Mrna, Lnp-s, Pf, B ivalent, [...] 07/26/2024 12:20 PM EST Telemedicine Family Medicine [address] [place] [phone] Verónica Benavides MD [address] [place] [address] [place] [address] 07/30/2024 2:30 PM EST [facility] Visit [facility] [address] [place] [address] Destiny Schultz, POPPY [address] [place] [address] 09/16/2024 3:00 PM EST Home Visit [facility] [address] [place] [address] Brandt Santacruz PA-C [address] [place] [address] 10/01/2024 1:00 PM EST Telemedicine Family Medicine [address] [place] [phone] Kusum Jones CRNP [address] [place] [address] [place] [address] 10/13/2024 11:30 AM EST Telemedicine Urology, [facility] [address] [place] [address] Chandler Pena MD [address] [place] [address] 11/24/2024 1:40 PM EDT Office Visit Dermatology [address] [place] [address] Sheryl Pena PA-C [address] [place] [address] [place] [address] 04/18/2025 1:20 PM EDT Telemedicine Family Medicine [address] [place] [phone] Verónica Benavides MD [address] [place] [address] [place] [address] Health Maintenance Due Date Last Done Comments [...] Additional history exists CKD PHOS USE SMARTSET 05768 05/05/202504/25, 04/30/2024, 04/02/2024, Additional history exists CKD HGB USE SMARTSET 10017 05/26/202505/26, 05/26/2024, 05/07/2024, Additional history exists Pneumococcal [...] Documents on File Type Date Recorded Patient Bulb Filler Expl anation Advance Directives and Living Will 08/10/2021 ADVANCE DIRECTIVE / LIVING WILL LIVING WILL Healthcare Agents on File Name Relationship Healthcare Agent Relationshi p Communication Josselyn Judd Adult Child Health Care Power of Attor nathalie Care Teams Spinning Lathe Operator Hydraulic Relationship Specialty Start Date End Date Verónica Benavides MD [address] [place] [address] [place] [id number] PCP - General Family Medicine 09/16/14 documented as of this encounter
--- OUTSIDE RECORDS SUMMARY | 2024-08-08 16:53 | External Medical Summary | Summary of Care ---
Author Name Unknown Organization [facility] Address [address] [place] [phone] Phone [phone] Care Team Providers Care Lime Burner Name Role Phone Verónica Benavides MD Primary Care Provide r Reason for Referral * Ancillary Services (Within 3 days (urgent)) - Authorized Specialty Diagnoses / Procedures Referred By Contac t Referred To Contact Laser Systems Engineer Diagnoses Chronic hypoxemic respiratory failure (HCC) Luz Jacob, GASTON [address] [place] [address] Phone: tel: fax: Referral ID Status Reason Start Date Expiration Date Visits Requested Visits Authorized [id number] Authorized Ancillary Services Required 07/30/2024 999 999 Question Answer Referral Priority Within [...] on the next service day for the [facility] Home Phlebotomy does not service every geographical location on a daily basis. Contact [facility] Client Services at to find out service days for a specific location. Medical Laboratory [address] [place] [address] Dillan Davis M.D. Director and Cafe Worker Patient Name: Regla Castano : 1935 Sex: female Address [address] [place] [phone] Provider: @REF@? Verónica Benavides MD? Diagnosis: (J96.11) Chronic hypoxemic respiratory failure (HCC) (primary encounter diagnosis) Tests Requested CMP, CBC and BNP on 08/02 or 08/03 please Encounter Details Date Type Department Care Team (Late st Contact Info) Description 07/30/2024 Telephone [facility], [facility] [address] [place] [address] Luz Jacob CRNP [address] [place] [address] Allergies Active Allergy Reactions Criticality Noted Date [...] Strip 1 05/30/20 Active OneTouch Delica Plus [id number] ns:Type 2 diabetes mellitus with hemoglobin A1c goal of less than 8.0% ([facility]) Test up to two times daily or as directed by [facility] pharmacist 200 Each 3 07/11/20 Active Estrogens [...] XL)Indications:Non -ischemic cardiomyopathy (HCC),Coronary artery disease involving little shell tribe coronary artery of little shell tribe heart without angina pectoris,HTN, goal below [...] Plan (08/29/2021 1:27 PM EST): [facility] Triage Call: Reviewed last C&S - [...] Metoprolol Succinate (ER) MARIO Inhibitor/ARB Therapy: No MAROI/ARB/ARNI secondary to: hypotension Diuretic therapy: Torsemide Aldactone [...] Assessment & Plan (01/14/2022 1:57 PM EDT): [facility] Call: I'm not sure who Dr [...] Plan (08/29/2021 1:21 PM EST): [facility] Triage Call: Based on what is [...] Continue synthroid Coronary artery disease invo lving little shell tribe coronary artery of little shell tribe heart without angina pectoris 07/03/2012 Overview [...] ACTIVE CASE MANAGEMENT 07/26/200906/11 Overview (07/26/2009): Marcela Dioxn RN Arthritis, rheumatoid 06/30/20092011 Overview (06/30/2009): Seronegative [...] mRNA, LNP-s, No Pre serve, 2-Dose Series (Rayneer) 08/29/2021,10/23/2020,10/02/2020 COVID-19, MRNA-LNP, PF, 30 M CG/0.3 mL, 12 YRS AND ABOVE, IM ([employer] It - Smartphone RFID-ComirnatThink2) 08/04/2023 Covid-19, Mrna, Lnp-s, Pf, B ivalent, [...] encounter Miscellaneous Notes * Telephone Encounter - Luz Jacob CRNP - 07/30/2024 2:18 PM EST TT from RN--SpO2 dropped to 79% when she was not on oxygen. Lungs slightly diminished more in the bases with a nonproductive cough. SpO2 94% on 3 L. She does have oxygen at home and has been wearing continuous since . Weight is 232.8-per chart review daughter reported this is her dry weight. Difficult to determine volume status due to her size and chronic edema. No fever or chills. Nohistory of lung disease. Her complaint is feeling tired and weak. Suspect she could have some deconditioning. Home health was to start but they did not start yet. --mobile chest x-ray ordered. TT to scheduling pool to fax order --continuous oxygen to maintain SpO2 90% or greater --suspect fatigue and tiredness could be from deconditioning--home health to start --labs ordered for mobile lab to be drawn Friday or Friday. --intake-please contact daily over the weekend to monitor how patient is feeling JUNIOR Dixon documented in this encounter Plan of Treatment Upcoming Encounters Date Type Department Care Team (Late st Contact Info) Description 07/31/2024 1:15 PM EST Scheduled Telephone [facility] at [address] [place] [address] [facility], Nurse [address] [place] [address] 08/01/2024 10:30 AM EST Scheduled Telephone [facility], [address] [place] [address] [facility], Nurse [facility] [address] [place] [address] 08/04/2024 7:05 AM EST Laboratory Lab Mobile Phlebotomy [facility] [address] [facility] [place] [address] [facility] Mobile Home Draw [address] [facility] [place] [address] 08/23/2024 12:30 PM EST [facility] [place] [address] Destiny Schultz RN [address] [place] [address] 09/16/2024 3:00 PM EST [facility] Visit [facility] [place] [place] [address] Brandt Santacruz PA-C [address] [facility] [place] [address] 10/01/2024 1:00 PM EST Telemedicine Family Medicine [address] [place] [phone] [address] [place] [address] 10/13/2024 11:30 AM EST Telemedicine Urology, [facility] [address] [facility] [place] [address] Chandler Pena MD [address] [place] [address] 11/24/2024 1:40 PM EDT Office Visit Dermatology [address] [place] [address] Sheryl Pena PA-C [address] [place] [address] [place] [address] 04/18/2025 1:20 PM EDT Telemedicine Family Medicine [address] [place] [phone] Verónica Benavides MD [address] [place] [address] [place] [address] Scheduled Orders Name Type Priority Associated Diagnoses Orde r Schedule XR CHEST 2 VIEWS Medical Imaging Routine Chronic hypoxemic respiratory failure (HCC) Ordered: 07/30/2024 COMPREHENSIVE METABOLIC PANEL Lab Routine Chronic hypoxemic respiratory failure (HCC) Expected: 07/30/2024 (Approximate), Expires: 07/30/2025 CBC WITH WBC DIFFERENTIAL Lab Routine Chronic hypoxemic respiratory failure (HCC) Expected: 07/30/2024 (Approximate), Expires: 07/30/2025 BNP, NT-PRO Lab Routine Chronic hypoxemic respiratory failure (HCC) Expected: 07/30/2024 (Approximate), Expires: 07/30/2025 Scheduled Referrals Name Type Priority Associated Diagnoses Orde r Schedule HOME PHLEBOTOMY REFERRAL OP Referral Within 3 days (urgent) Chronic hypoxemic respiratory failure (HCC) Ordered: 07/30/2024 Health Maintenance Due Date Last Done Comments [...] Additional history exists CKD PHOS USE SMARTSET 79503 05/05/202504/25, 04/30/2024, 04/02/2024, Additional history exists CKD HGB USE SMARTSET 49686 05/26/202505/26, 05/26/2024, 05/07/2024, Additional history exists Pneumococcal [...] pacemaker in situ Coronary artery disease involving little shell tribe coronary artery of little shell tribe heart without angina pectoris Hypertensive heart [...] of less than 8.0% ([facility]) Drug-induced constipation Other constipation Gastroesophageal reflux disease without esophagitis Esophageal reflux Acute cystitis without hematuria Acute cystitis 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)- Primary Chronic hypoxemic respiratory failure ([facility])- Primary Chronic respiratory failure documented in this encounter Additional Health Concerns Infection Onset Date Last Indicated Resolved Time ESBL 06/07/2024 06/07/2024 documented as of this encounter Advance Directives Documents on File Type Date Recorded Patient Peat Shredder Tender Expl anation Advance Directives and Living Will 08/10/2021 ADVANCE DIRECTIVE / LIVING WILL LIVING WILL Healthcare Agents on File Name Relationship Healthcare Agent [facility] Communication Josselyn Judd [facility] Child Health Care Power of Attor nathalie Care Teams Lime Burner Relationship Specialty Start Date End Date Verónica Benavides MD [address] [place] [address] [place] [address] PCP - General Family Medicine 09/16/14 documented as of this encounter
--- OUTSIDE RECORDS SUMMARY | 2024-08-08 16:54 | External Medical Summary | Summary of Care ---
Author Name Unknown Organization [facility] Address [address] [place] [address] Phone [phone] Care Team Providers Care Thread Cutter Tender Name Role Phone Verónica Benavides MD Primary Care Provide r Encounter Details Date Type Department Care Team (Late st Contact Info) Description 07/23/2024 12:00 PM EST Telemedicine [facility] [place], [facility] [address] [place] [address] Luz Jacob CRNP [address] [place] [address] Gianna Clark, [facility] Industrial Safety And Health Technician [address] [place], [place] [id number] Hypertensive heart and kidney disease with chronic [...] 1 05/30/20 23 Active OneTouch Delica Plus [id number] ns:Type 2 diabetes mellitus with hemoglobin A1c [...] XL)Indications:Non -ischemic cardiomyopathy (HCC),Coronary artery disease involving qawalangin coronary artery of qawalangin heart without angina pectoris,HTN, goal below 140/90 Take 1 Tablet by mouth every evening. 90 Tablet 1 05/12/20 24 Active Mirabegron ER 25 MG Oral Tablet Extended Release 24 Hour (Myrbetriq) Take 1 Tablet by mouth in the morning. 90 Tablet 3 05/12/20 Active Colchicine 0.6 MG Oral Tablet Take [...] failure managing provider. 1 Each 07/23/20 Active DIURETIC TITRATION PLAN If no improvement on day 3, contact [facility] for possible home visit 1 Each 11/28/19 24 024 Discontin ued(Medic ation/Dos e Changed) documented as of this encounter (statuses as [...] & Plan (08/29/2021 1:27 PM EST): [facility] Triage Call: Reviewed last [...] Regimen: Beta Berta Therapy: Metoprolol Succinate (ER) GERMAIN Inhibitor/ARB Therapy: No GERMAIN/ARB/ARNI secondary to: Hypotension Diuretic therapy: Torsemide Aldactone [...] Regimen: Beta Berta Therapy: Metoprolol Succinate (ER) GERMAIN Inhibitor/ARB Therapy: No GERMAIN/ARB/ARNI secondary to: hypotension Diuretic therapy: Torsemide Aldactone [...] Beta Berta Therapy: Metoprolol Succinate (ER) o GERMAIN Inhibitor/ARB Therapy: Other: none o Diuretic therapy: [...] Beta Berta Therapy: Metoprolol Succinate (ER) o GERMAIN Inhibitor/ARB Therapy: No GERMAIN/ARB/ARNI secondary to: low BP o Diuretic therapy: Torsemide Aldactone Self - Management Plan o Double dose of Torsemide for 3 days Exacerbation Plan o BMP o Pro-BNP Doing DTP for 3 days. Last day tomorrow. BMP next week. Assessment & Plan (01/14/2022 1:57 PM EDT): [facility] Call: I'm not sure who [...] & Plan (08/29/2021 1:21 PM EST): [facility] Triage Call: Based on what is [...] of qawalangin heart without angina pectoris 07/03/2012 Overview (07/03/2012): [...] mRNA, LNP-s, No Pre serve, 2-Dose Series (Vascular Imaging) 08/29/2021,10/23/2020,10/02/2020 COVID-19, MRNA-LNP, PF, 30 M CG/0.3 mL, 12 YRS AND ABOVE, IM ([facility]) 08/04/2023 Covid-19, Mrna, Lnp-s, Pf, B [...] No 2024 Does the household have a [facility] source of income? (Household - for [...] Sign Reading Time Taken Comments Blood Pressure 120/72 07/23/2024 12:45 PM EST Pulse 71 07/23/2024 12:45 PM EST Temperature 36.1 C (97 F) 07/23/2024 12:45 PM EST Respiratory Rate 20 07/23/2024 12:45 PM EST Oxygen Saturation 100% 07/23/2024 12:45 PM EST Inhaled Oxygen Concentration - - Weight - - Height - - Body Mass Index - - documented in this encounter Progress Notes * Nanci Leiva, POPPY - 07/23/2024 3:01 PM EST Weekend follow up calls scheduled Nanci Leiva, RN, BSN broom stitcherRecreational Aide [phone] option #1 * Gianna Clark [facility] Industrial Safety And Health Technician - 07/23/2024 12:58 PM EST Telemedicine visit: Yes Patient location: HOME. I was not in a hospital or clinic location. After connecting through [employer], patient was verified with two unique identifiers. Patient (or authorized legal service representative) was then informed that this was a Telemedicine visit and being conducted confidentially over secure lines. Methods to assure confidentiality were taken. Patient acknowledged consent and understanding of privacy and security of the Telemedicine visit. The patient agreed to participate. [facility] Industrial Safety And Health Technician (OLIVERIO) documentation: CHW assisted GASTON Saleh with telehealth visit this date. Electronically signed by Gianna Clark [facility] Industrial Safety And Health Technician at 07/23/2024 2:07 PM EST * Luz Jacob CRNP - 07/23/2024 12:00 PM EST Images from the original note were not included. 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 Suspect her cough is secondary to hypovolemia. Daughter has home COVID test that she is going to take as well. DTP updated. SpO2 remained 99% on room air during today's visit. Instructed daughter to use oxygen p.r.n. to maintain SpO2 greater than 90%. Check-out note: Intake-please schedule patient for daily phone calls Friday and Friday to follow up her weight and symptoms after taking metolazone on 07/23/2024. This note was verbally transcribed via dictation system and spelling/word errors can occur. Please contact the undersigned for any clarification/correction regarding dictated information if needed. Scheduled appointments in the next 60 days: Future Appointments-next 60 days Date/Time Provider Specialty Dept Phone 07/23/2024 12:00 PM Gianna Clark, [facility] Industrial Safety And Health Technician; Luz Jacob CRNP [facility] Arrive at: Patient's Home [phone] 07/24/2024 9:45 AM [facility], Nurse Lise [facility] [phone] 07/26/2024 12:20 PM Verónica Benavides MD Family Medicine Arrive at: Patient's Home [phone] 07/30/2024 2:30 PM Destiny Schultz RN [facility] [phone] 09/16/2024 3:00 PM Brandt Santacruz PA-C [facility] [phone] 10/01/2024 1:00 PM Kusum Jones CRNP Family Medicine [phone] 10/13/2024 11:30 AM Chandler Pena MD Urology [phone] 11/24/2024 1:40 PM (Arrive by 1:25 PM) Sheryl Pena PA-C Dermatology [phone] 04/18/2025 1:20 PM Verónica Benavides MD Family Medicine [phone] A total of 29 minutes was spent face to face (via video-based telemedicine if designated as a telemedicine visit) Subjective Subjective Is this a Telemedicine Visit? Yes, Patient location: HOME. I was not in a hospital or clinic location. After connecting through televideo, patient was verified with two unique identifiers. Patient (or authorized legal service representative) was then informed that this was a Telemedicine visit and being conducted confidentially over secure lines. Methods to assure confidentiality were taken. Patient acknowledged consent and understanding of privacy and security of the Telemedicine visit. The patient agreed to participate. Reason For [facility] Visit: Follow-Up Current Concerns: Regla Castano is a 89 year old female seen today for a [facility] provider visit. 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 With repeat enema she had about 4 bowel movements that were moderate-size. [facility] 07/04-07/08/2400 ESBL UTI sent to rehab Today's concerns are: Daughter called intake today to report increased shortness of breath, cough and rattle and chest. SpO2 82% on room air and increased to 88% after coughing and clearing out some phlegm. Reported weight yesterday 232 which is her baseline. Dgt reports she was fine on d/c. Last night when she laid down she was wheezing and rattling in herchest so she slept in easy chair. Coughing during the night. This am [employer] coughing. Tried incentive spirometer and she wasn't able to do it. No fevers, some runny nose this am. Wearing oxygen now, but normally does not wear it during the day, only at night. When talking to people was running 80- 88%. Now on 3L she is running 100%. Denies sore throat. Chronic aching that is a little more than usual today. Appetite good yesterday, small BMtoday. Baseline wt 232lb. Wt today 236.2lb. Some swelling in legs but reports improved since being d/c Sat. Dgt reports she was not able to prop up legs at rehab. Wt was not checked yesterday. Some nausea, no vomiting. Chronic BLE lymphedema but reports seems worse. Pt had extra torsemide 90mg Friday and for concerns hypervolemia. Additional Current Outpatient Medications Medication Sig Dispense Refill metOLazone 2.5 MG Oral Tablet (Zaroxolyn) Take one tab only as directed with diuretic titration plan DIURETIC TITRATION PLAN If no improvement on day 3, contact heart failure managing provider. 1 Each0 [employer] Verio w/Device Kit Use up to 4 times a day E11.9 1 Kit 0 Bisacodyl 5 MG Oral Tablet Delayed Release Take 2 Tablets by mouth daily as needed for Constipation. Do not use for more than one week. Do not cut, crush or chew 40 Tablet 1 Power[employer]ure InternationalToKirusa In Vitro Strip (Glucose Blood) TEST UP TO FOUR TIMES DAILY 400 Strip 1 Haloband Delica Plus [id number] Test up to two times daily or as directed by [facility] pharmacist 200 Each 3 Estrogens Conjugated [...] No current facility-administered medications for this visit. I have reviewed the following results: 07/20/24- WBC 8.82 Hemoglobin 9.6 Platelet 356 Creatinine 0.93 Lab Results Component Value Date/Time LEFT VENTRICULAR EJECTION FRACTION 50 12/05/2022 03:41 PM Objective Objective Vitals: 07/23/24 1245 Temp: 36.1 C (97 F) Pulse: 71 Resp: 20 SpO2: 100% BP: 120/72 Last Weights: Wt Readings from Last 3 Encounters: 07/18/24 108 kg (238 lb 1.6 oz) 04/14/24 106.9 kg (235 lb 9.6 oz) 02/20/24 105.1 kg (231 lb 12.8 oz) Last BPs: BP Readings from Last 4 Encounters: 07/23/24 120/72 07/18/24 130/60 06/21/24 110/60 06/09/24 108/64 Physical Exam Constitutional: General: She is not in acute distress. Appearance: She is not toxic-appearing. Comments: elderly Neck: Vascular: JVD present. No hepatojugular reflux. Cardiovascular: Rate and Rhythm: Normal rate and regular rhythm. Comments: Chronic BLE lymphedema, not pitting Pulmonary: Effort: Pulmonary effort is normal. Breath sounds: Examination of the right-middle field reveals rales. Examination of the left-middle field reveals rales. Examination of the right-lower field reveals decreased breath sounds. Examination of the left-lower field reveals decreased breath sounds. Decreased breath sounds and rales present. Musculoskeletal: Right lower leg: Edema present. Left lower leg: Edema present. Skin: Coloration: Skin is not pale. Neurological: General: No focal deficit present. Mental Status: She is alert. Psychiatric: Mood and Affect: Mood normal. Behavior: Behavior normal. 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) "RED FLAG" HF Symptoms: Leg Swelling Orthopnea Cough Medication Regimen: Beta Berta Therapy: Metoprolol Succinate (ER) GERMAIN Inhibitor/ARB Therapy: No GERMAIN/ARB/ARNI secondary to: Hypotension Diuretic therapy: Torsemide Aldactone [...] the weekend Patient sees PCP on Friday documented in this encounter Plan of Treatment Upcoming Encounters Date Type Department Care Team (Late st Contact Info) Description 07/24/2024 9:45 AM EST Scheduled Telephone [facility], [facility] [address] [place] [address] [facility], Nurse Lise [place] [address] [place] [address] 07/25/2024 1:15 PM EST Scheduled Telephone [facility], [facility] [address] [place] [address] [facility], Nurse Gah [address] [place] [address] 07/26/2024 12:20 PM EST Telemedicine Family [address] [phone] Verónica Benavides MD [address] [place] [address] [place] [address] 07/30/2024 2:30 PM EST Home Visit [facility], [facility] 132 [facility] [place] [address] Destiny Schultz RN [address] [facility] [place] [address] 09/16/2024 3:00 PM EST Home Visit [facility], [facility] [address] [facility] [place] [address] Brandt Santacruz PA-C [address] [place] [address] 10/01/2024 1:00 PM EST Telemedicine Family Medicine [address] [phone] Kusum Jones [address] [place] [address] 10/13/2024 11:30 AM EST Telemedicine Urology, [facility] [address] [facility] [place] [address] Chandler Pena MD [address] [place] [address] 11/24/2024 1:40 PM EDT Office Visit Dermatology [address] [place] [address] Sheryl Pena PA-C [address] [place] [address] [place] [address] 04/18/2025 1:20 PM EDT Telemedicine Family Medicine [address] [place] [phone] Verónica Benavides MD [address] [place] [address] [place] [address] Health Maintenance Due Date Last Done Comments [...] Additional history exists CKD PHOS USE SMARTSET 86256 05/05/202504/25, 04/30/2024, 04/02/2024, Additional history exists CKD HGB USE SMARTSET 26482 05/26/202505/26, 05/26/2024, 05/07/2024, Additional history exists Pneumococcal [...] pacemaker in situ Coronary artery disease involving qawalangin coronary artery of qawalangin heart without angina pectoris Hypertensive heart and [...] on File Type Date Recorded Patient Head Of Marketing Analytics Expl anation Advance Directives and Living Will 08/10/2021 ADVANCE DIRECTIVE / LIVING WILL LIVING WILL Healthcare Agents on File Name Relationship Healthcare Agent [facility] p Communication Josselyn Judd [facility] Care Power of Attor nathalie Care Teams Thread Cutter Tender Relationship Specialty Start Date End Date Verónica Benavides MD [address] [place] [address] [place] [address] PCP - General Family Medicine 09/16/14 documented as of this encounter
--- OUTSIDE RECORDS SUMMARY | 2024-08-08 16:54 | External Medical Summary | Summary of Care ---
Author Name Unknown Organization [facility] Address [address] [place] [address] Phone [phone] Care Team Providers Care [employer] Name Role Phone Verónica Benavides MD Primary Care Provide r Reason for Visit * Reason Onset Date Comments [facility]: Acute 07/23/2024 Encounter Details Date Type Department Care Team (Late st Contact Info) Description 07/23/2024 9:30 AM EST Scheduled Telephone [facility], [facility] [address] [place] [address] [facility], Nurse [facility] [address] [place] [address] Allergies Active Allergy Reactions Criticality Noted Date Comments Adhesive Tape Medium 01/30/2022 Ibuprofen Hives 01/13/2012 Aspirin Hives,Rash 09/15/2000 Sulfamethoxazole-Trimeth oprim Nausea/vomiting,Othe r (Please comment) 10/27/2020 Dizziness Ciprofloxacin Hcl 06/16/2019 Hoarse, dizzy,disoriented Morphine 09/21/2021 Blacked out Penicillins Hives,Rash 09/15/2000 Prednisone 12/30/2017 Weakness/memory changes/blurred vision documented as of this encounter (statuses as of 07/23/2024) Medications Danya meléndez/Device Kit Use up to [...] 1 05/30/20 23 Active OneTouch Delica Plus [id number] ns:Type 2 diabetes mellitus with hemoglobin A1c goal of less than 8.0% ([facility]) Test up to two times daily or as directed by [facility] pharmacist 200 Each 3 07/11/20 [...] XL)Indications:Non -ischemic cardiomyopathy (HCC),Coronary artery disease involving nikolai coronary artery of nikolai heart without angina pectoris,HTN, goal below 140/90 [...] Assessment & Plan (08/29/2021 1:27 PM EST): [facility] Triage Call: Reviewed last [...] Assessment & Plan (01/14/2022 1:57 PM EDT): [facility] Call: I'm not sure [...] Assessment & Plan (08/29/2021 1:21 PM EST): [facility] Triage Call: Based on what [...] Continue synthroid Coronary artery disease invo lving nikolai coronary artery of nikolai heart without angina pectoris 07/03/2012 Overview (07/03/2012): [...] mRNA, LNP-s, No Pre serve, 2-Dose Series (Cancer Genetics) 08/29/2021,10/23/2020,10/02/2020 COVID-19, MRNA-LNP, PF, 30 M CG/0.3 mL, 12 YRS AND ABOVE, IM ([employer]) 08/04/2023 Covid-19, Mrna, Lnp-s, Pf, B ivalent, [...] Telephone Encounter - Janiya Cárdenas RN - 07/23/2024 11:13 AM EST Tele med visit arranged for today for Gianna Clark/Luz FELDMAN for 12:30 today. Call placed to Yary to make aware of appt time. Yary agreeable to telemed appt today. TT sent to Germaine with update. * Telephone Encounter - Janiya Cárdenas RN - 07/23/2024 9:49 AM EST [facility] Acute Call Date: 07/23/2024 Time: 9:49 AM Name: Regla Castano : 1935 Caller: Josselyn Relationship to pt: daughter Chief Complaint Patient presents with [employer] for [facility] HPI: Regla Castano is a 89 year old female that is calling [facility] Intake to report increased SOB,cough, rattle in chest. Communication Note Name: Regla Castano Situation: 89 yr old pt lives in [place], daughter reports deep cough with rattle in her chest Background: HF, CKD, CAD, anemia, recurrent UTI, DM 2 Assessment: pt's daughter reports that the pt was dc from [facility] yesterday for a stay for HF exacerbation and extreme constipation. Pt reports increased SOB this am and daughter reports Regla developed a deep cough and rattle in the chest. Pt having a difficult time expectorating phlegm. Coughing up clear white phlegm. Pt is afebrile. O2 sat 82% on RA and increased to 88% after coughing and clearing out some phlegm. Pt denies LE edema, abd bloating, chest pain or lightheadedness/dizziness. Pt weight yesterday 232.0 lbs which is her baseline. Has not weighed yet today. Recommendation: home visit today. - discussed pt with Mary MCWILLIAMS- production operations inspector. Recommended Telemed today. TT message sent to the [facility] scheduler maintenance to arrange tele med appt for today. Pain Denies pain Baseline Assessment Able to performing ADLs at baseline (walking, daily tasks, etc.): No Chief Complaint is related to a chronic condition: Unknown Patient prescribed oxygen? Yes, 2L/min- at night Patient has been ordered DME equipment (assistive devices, respiratory equipment, etc.): No Medication Reconciliation: (See medication list) Received flu shot this season: Unknown Taking medication as ordered: Yes Medications ordered/taking to treat reason for call: No Heart failure symptoms: No COPD exacerbation symptoms: No Reinforcement Education: Apply O2 to keep O2 sats above 90% Treatment/Plan: (need to report) Level of call: Acute Appointment scheduled for same day: Yes Telehealth/Teletriage Provider Name: TBD Call back instructions provided to patient. documented in this encounter Plan of Treatment Upcoming Encounters Date Type Department Care Team (Late st Contact Info) Description 07/23/2024 12:00 PM EST [facility] [address] [place] [address] Luz Jacob CRNP [address] [place] [address] Gianna Clark, [facility] Research Instrumentation Technician [address] [place] [address] 07/26/2024 12:20 PM EST Telemedicine Family Medicine [address] [phone] Verónica Benavides MD [address] [place] [address] [place] [address] 07/30/2024 2:30 PM EST [facility] Visit [facility] [address] [place] [address] Destiny Schultz RN [address] [place] [address] 09/16/2024 3:00 PM EST [facility] Visit [facility] [place], [facility] [address] [place] [address] Brandt Santacruz PA-C [address] [place] [address] 10/01/2024 1:00 PM EST Telemedicine Family Medicine [address] [place] [phone] Kusum Jones CRNP [address] [place] [address] [place] [address] 10/13/2024 11:30 AM EST Telemedicine Urology, [facility] 132 [facility] [place] [address] Chandler Pena MD [address] [place] [address] 11/24/2024 1:40 PM EDT Office Visit Dermatology [address] [place] [address] Sheryl Pena PA-C [address] [place] [address] [place] [address] 04/18/2025 1:20 PM EDT Telemedicine Family Medicine [address] [place] [phone] Verónica Benavides MD [address] [place] [address] [place] [address] Health Maintenance Due Date Last Done Comments [...] exists COVID-19 Vaccine (2023- season) 2024 08/04/2023, 08/02/2022, 08/02/2022, Additional history exists Influenza Vaccine (FLU shot) (#1) 2024 06/20/2022, 06/20/2022, 06/29/2021, Additional history exists HbA1c 10/03/2024 04/02/2024, 06/, 11/01/2022, Additional history exists TSH 04/02/2025 04/02/2024, 08/0 08/2022, 02/24/2023, Additional history exists Albumin/Creatinine Ratio 04/19/2025 024, 02/07/2023, 01/18/2022, Additional history exists CKD PHOS USE SMARTSET 13282 05/05/202504/25, 04/30/2024, 04/02/2024, Additional history exists CKD HGB USE SMARTSET 41043 05/26/202505/26, 05/26/2024, 05/07/2024, Additional history exists Pneumococcal [...] Documents on File Type Date Recorded Patient Technical Account Executive Expl anation Advance Directives and Living Will 08/10/2021 ADVANCE DIRECTIVE / LIVING WILL LIVING WILL Healthcare Agents on File Name Relationship Healthcare Agent [facility] hang Communication Josselyn Judd Adult Child Health Care Power of Attor nathalie Care Teams [employer] Relationship Specialty Start Date End Date Verónica Benavides MD [address] [place] [address] [place] [address] PCP - General Family Medicine 09/16/14 documented as of this encounter
--- OUTSIDE RECORDS SUMMARY | 2024-08-08 16:54 | External Medical Summary | Summary of Care ---
Author Name Unknown Organization [facility] Address [address] [place] [address] Phone [phone] Care Team Providers Care Recreational Assistant Name Role Phone Verónica Benavides MD Primary Care Provide r Reason for Visit * Reason Onset Date Comments [facility]: Maintenance 07/23/2024 Encounter Details Date Type Department Care Team (Late st Contact Info) Description 07/23/2024 Telephone [facility], [facility] [address] [facility] [place] [id number] Nanci Leiva RN [address] [place] [address] [address] [facility]: Maintenance Allergies Active Allergy [...] 1 05/30/20 23 Active OneTouch Delica Plus [id number] ns:Type 2 diabetes mellitus with hemoglobin A1c goal of less than 8.0% ([facility]) Test up to two times daily or as directed by [facility] pharmacist 200 Each 3 07/11/20 23 Active [...] XL)Indications:Non -ischemic cardiomyopathy (HCC),Coronary artery disease involving [place] [...] directed with diuretic titration plan 07/23/20 Active documented as of this encounter [...] Assessment & Plan (08/29/2021 1:27 PM EST): [facility] Triage Call: Reviewed last [...] kidney disease 11/28/2020 Assessment & Plan (07/23/2024 1:59 PM EST): "RED [place]" HF Symptoms: Leg Swelling Orthopnea Cough Medication Regimen: Beta Berta Therapy: {[facility] POC B-Berta:81489} MARIO Inhibitor/ARB Therapy: {[facility] POC MARIO/ARB:67963} Diuretic therapy: {diuretic:86520} SGLT2 Inhibitor: {[facility] POC SGLT2:65231} Remote Patient Monitoring Vendor: {[facility] RPM VENDOR:68624} Device(s): {[facility] RPM DEVICES:95406} Self - Management Plan {[facility] HF SELF-MANAGEMENT PLAN:49341} Exacerbation Plan {[facility] HF EXACERBATION PLAN:98022} Additional Comments: Assessment & Plan (06/22/2024 10:20 AM EDT): [...] Assessment & Plan (01/14/2022 1:57 PM EDT): [facility] Call: I'm not sure who [...] Assessment & Plan (08/29/2021 1:21 PM EST): [facility] Triage Call: Based on what is [...] [place] heart without angina pectoris 07/03/2012 Overview (07/03/2012): [...] mRNA, LNP-s, No Pre serve, 2-Dose Series ([employer]) 08/29/2021,10/23/2020,10/02/2020 COVID-19, MRNA-LNP, PF, 30 M CG/0.3 mL, 12 YRS AND ABOVE, IM ([employer]-Comirnat) 08/04/2023 Covid-19, Mrna, Lnp-s, Pf, B ivalent, [...] Telephone Encounter - Nanci Leiva RN - 07/23/2024 1:42 PM EST Phone call from patient's daughter CHW who was at home a short while ago left the device used to hear patient's heart sounds. Wanted her reached so she can come back and get it before she is too far away TT message sent to RYNE Doe, RN, BSN sewer and inspectorRegional Project Manager [phone] option #1 documented in this encounter Plan of Treatment Upcoming Encounters Date Type Department Care Team (Late st Contact Info) Description 07/24/2024 9:45 AM EST Scheduled Telephone [facility], [place] [address] [place] [address] [facility], Nurse [facility] [address] [place] [address] 07/26/2024 12:20 PM EST Telemedicine Family Medicine [address] [place] [phone] Verónica Benavides MD [address] [place] [address] [place] [address] 07/30/2024 2:30 PM EST Home Visit [facility] [place], [facility] [address] [place] [address] Destiny Schultz, POPPY [address] [place] [address] 09/16/2024 3:00 PM EST Home Visit [facility], [facility] [address] [place] [address] Brandt Santacruz PA-C [address] [place] [address] 10/01/2024 1:00 PM EST Telemedicine Family Medicine [address] [place] [phone] Kusum Jones CRNP [address] [place] [address] [place] [address] 10/13/2024 11:30 AM EST Telemedicine Urology, [facility] [address] [place] [address] Chandler Pena MD [address] [place] [address] [place] [address] 11/24/2024 1:40 PM EDT Office Visit Dermatology [address] [place] [address] Sheryl Pena PA-C [address] [place] [address] [place] [address] 04/18/2025 1:20 PM EDT Telemedicine Family Medicine [address] [place] [address] Verónica Benavides MD [address] [place] [address] [place] [address] Health Maintenance Due Date Last Done Comments Zoster Vaccines (1 of 2) 1985 Adult Wellness Visit 09/11/2016 09/11/2015 DXA Scan 04/02/2020 04/02/2017, 05/2 11/2012, 11/05/2007 [...] Additional history exists CKD PHOS USE SMARTSET 46306 05/05/202504/25, 04/30/2024, 04/02/2024, Additional history exists CKD HGB USE SMARTSET 42511 05/26/202505/26, 05/26/2024, 05/07/2024, Additional history exists Pneumococcal [...] Documents on File Type Date Recorded 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
--- OUTSIDE RECORDS SUMMARY | 2024-08-08 16:54 | External Medical Summary | Summary of Care ---
Author Name Unknown Organization [facility] Address [address] [place] [address] Phone [phone] Care Team Providers Care Steam Cleaner Name Role Phone Verónica Benavides MD Primary Care Provide r Reason for Visit * Reason Onset Date Comments [facility]: Engagement 07/23/2024 Encounter Details Date Type Department Care Team (Late st Contact Info) Description 07/23/2024 Telephone [facility], [facility] [address] [facility] [place] [phone] Ching Storm OSA [address] [place] [address] [facility]: Engagement Allergies Active Allergy Reactions Criticality Noted Date [...] 1 05/30/20 23 Active OneTouch Delica Plus [id number] ns:Type 2 diabetes mellitus with hemoglobin A1c goal of less than 8.0% ([facility]) Test up to two times daily or as directed by [facility] pharmacist 200 Each 3 07/11/20 [...] XL)Indications:Non -ischemic cardiomyopathy (HCC),Coronary artery disease involving [place] coronary artery of [place] heart without angina pectoris,HTN, goal below 140/90 [...] Assessment & Plan (08/29/2021 1:27 PM EST): [facility] Triage Call: Reviewed last [...] Assessment & Plan (01/14/2022 1:57 PM EDT): [facility] Call: I'm not sure [...] Assessment & Plan (08/29/2021 1:21 PM EST): [facility] Triage Call: Based on what [...] Continue synthroid Coronary artery disease invo lving [place] coronary artery of [place] heart without angina pectoris 07/03/2012 Overview (07/03/2012): [...] mRNA, LNP-s, No Pre serve, 2-Dose Series ([employer]) 08/29/2021,10/23/2020,10/02/2020 COVID-19, MRNA-LNP, PF, 30 M CG/0.3 mL, 12 YRS AND ABOVE, IM ([employer]-Comirnaty) 08/04/2023 Covid-19, Mrna, Lnp-s, Pf, B ivalent, [...] encounter Miscellaneous Notes * Telephone Encounter - Ching Storm OSA - 07/23/2024 11:19 AM EST Per Request via TT Janiya Cárdenas she advised is in need of a acute telemed.... [facility] advised 07/23 at 12:00pm is a good date and time . documented in this encounter Plan of Treatment Upcoming Encounters Date Type Department Care Team (Daily lunsford Contact Info) Description 07/23/2024 12:00 PM EST Telemedicine [facility], [facility] [address] [place] [address] Luz Jacob CRNP [address] [place] [address] Gianna Clark, Community Health Bakery Chef [address] [place] [address] 07/24/2024 9:45 AM EST Scheduled Telephone [facility], [facility] [address] [place] [address] [facility], Nurse [facility] [address] [place] [address] 07/26/2024 12:20 PM EST Telemedicine Family [address] [phone] Verónica Benavides MD [address] [place] [address] [place] [address] 07/30/2024 2:30 PM EST Home Visit [facility], [facility] [address] [place] [address] Destiny Schultz RN 132 [facility] [place] [address] 09/16/2024 3:00 PM EST Home Visit [facility], [facility] [address] [place] [address] Brandt Santacruz PA-C [address] [place] [address] 10/01/2024 1:00 PM EST Telemedicine Family [address] [phone] Kusum Jones CRNP [address] [place] [address] [place] [address] 10/13/2024 11:30 AM EST Telemedicine Urology, [facility] [address] [place] [address] Chandler Pena MD [address] [place] [address] 11/24/2024 1:40 PM EDT Office Visit Dermatology [address] [place] [address] Sheryl Pena PA-C [address] [place] [address] [place] [address] 04/18/2025 1:20 PM EDT Telemedicine Family Medicine [address] [phone] Verónica Benavides MD [address] [place] [address] [place] [address] Health Maintenance Due Date Last Done Comments [...] Additional history exists CKD PHOS USE SMARTSET 59623 05/05/202504/25, 04/30/2024, 04/02/2024, Additional history exists CKD HGB USE SMARTSET 07028 05/26/202505/26, 05/26/2024, 05/07/2024, Additional history exists Pneumococcal [...] Documents on File Type Date Recorded Patient Intern Expl anation Advance Directives and Living Will 08/10/2021 ADVANCE DIRECTIVE / LIVING WILL LIVING WILL Healthcare Agents on File Name Relationship Healthcare Agent [facility] Communication Josselyn Judd Adult Child Health Care Power of Attor nathalie Care Teams Steam Cleaner Relationship Specialty Start Date End Date Verónica Benavides MD [address] [place] [address] [place] [phone] PCP - General Family Medicine 09/16/14 documented as of this encounter
--- OUTSIDE RECORDS SUMMARY | 2024-08-08 16:54 | External Medical Summary | Summary of Care ---
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 [...] 1 05/30/20 23 Active OneTouch Delica Plus [id number] ns:Type 2 diabetes mellitus with hemoglobin A1c goal of less than 8.0% ([facility]) Test up to two times daily or as directed by [facility] pharmacist 200 Each 3 07/11/20 [...] cardiomyopathy (HCC),Coronary artery disease involving [place] coronary artery of [place] heart without angina pectoris,HTN, goal below 140/90 [...] Assessment & Plan (01/14/2022 1:57 PM EDT): [facility] Call: I'm not sure who Dr Dominguez [...] Coronary artery disease invo lving [place] coronary artery of [place] heart without angina pectoris 07/03/2012 Overview (07/03/2012): [...] mRNA, LNP-s, No Pre serve, 2-Dose Series ([employer]) 08/29/2021,10/23/2020,10/02/2020 COVID-19, MRNA-LNP, PF, 30 M CG/0.3 mL, 12 YRS AND ABOVE, IM ([employer]-Comirnat) 08/04/2023 Covid-19, Mrna, Lnp-s, Pf, B ivalent, [...] documented in this encounter Progress Notes * Gianna Clark [facility] - 07/23/2024 12:58 PM EST Telemedicine visit: Yes Patient location: HOME. I was not in a hospital or clinic location. After connecting through televideo, patient was verified with two unique identifiers. Patient (or authorized legal business representative) was then informed that this was a Telemedicine visit and being conducted confidentially over secure lines. Methods to assure confidentiality were taken. Patient acknowledged consent and understanding of privacy and security of the Telemedicine visit. The patient agreed to participate. [facility] ([place]) documentation: CHW assisted GASTON Saleh with telehealth visit this date. * Luz Jacob CRNP - 07/23/2024 12:00 PM EST Images from the original note were not included. [facility] Provider Visit Assessment and Plan [...] Dept Phone 07/23/2024 12:00 PM Gianna Clark, [facility] Machine Feeder; Luz Jacob CRNP [facility] Arrive at: Patient's Home [phone] 07/24/2024 9:45 AM Celina, Nurse Lise Sosa [facility] [phone] 07/26/2024 12:20 PM Verónica Benavides MD Family Medicine Arrive at: Patient's Home [phone] 07/30/2024 2:30 PM Destiny Schultz RN [facility] [phone] 09/16/2024 3:00 PM Brandt Santacruz PA-C [facility] [phone] 10/01/2024 1:00 PM Kusum Jones CRNP Family [facility] [phone] 10/13/2024 11:30 AM Chandler Pena MD Urology [phone] 11/24/2024 1:40 PM (Arrive by 1:25 PM) Sheryl Pena PA-C Dermatology [phone] 04/18/2025 1:20 PM Verónica Benavides MD Family Medicine [phone] A total of 29 minutes was spent face to face (via video-based telemedicine if designated as a telemedicine visit) Subjective Subjective Is this a Telemedicine Visit? Yes, Patient location: HOME. I was not in a hospital or clinic location. After connecting through televideo, patient was verified with two unique identifiers. Patient (or authorized legal business representative) was then informed that this was a Telemedicine visit and being conducted confidentially over secure lines. Methods to assure confidentiality were taken. Patient acknowledged consent and understanding of privacy and security of the Telemedicine visit. The patient agreed to participate. Reason For [facility] Visit: Follow-Up Current Concerns: Regla Castano is a 89 year old female seen today for a [facility] provider visit. 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 With repeat enema she had about 4 bowel movements that were moderate-size. [facility] 07/04-07/08/2400 ESBL UTI sent to rehab Today's [...] chair. Coughing during the night. 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 Tried incentive spirometer and she wasn't [...] contact heart failure managing provider. 1 Each0 [place] Verio w/Device Kit Use up to 4 [...] DAILY 400 Strip 1 OneTouch Delica Plus [id number] Test up to two times daily or as directed by [facility] pharmacist 200 Each 3 Estrogens Conjugated [...] Behavior normal. GASTON Avalos [facility], [place] [address] documented in this encounter Miscellaneous Notes * [...] 9:45 AM EST [facility] [address] [place] [address] [facility], Nurse [facility] [address] [place] [address] 07/26/2024 12:20 PM EST Telemedicine Family [address] [place] [phone] Verónica Benavides MD [address] [place] [address] [place] [address] 07/30/2024 2:30 PM EST [facility] [address] [place] [address] Destiny Schultz, POPPY [address] [place] [address] 09/16/2024 3:00 PM EST Home Visit [facility], [facility] [address] [place] [address] Brandt Santacruz PA-C [address] [place] [address] 10/01/2024 1:00 PM EST Telemedicine Family Medicine [address] [place] [address] Kusum Jones CRNP [address] [place] [address] [place] [address] 10/13/2024 11:30 AM EST Telemedicine Urology, [facility] [place] [address] Chandler Pena MD [address] [place] [address] [place] [address] 11/24/2024 1:40 PM EDT Office Visit Dermatology [address] [place] [address] Sheryl Pena PA-C [address] [place] [address] [place] [address] 04/18/2025 1:20 PM EDT Telemedicine Family Medicine [address] [place] [phone] Verónica Benavides MD [address] [place] [address] [place] [address] Health Maintenance Due Date Last Done Comments [...] Additional history exists CKD PHOS USE SMARTSET 41215 05/05/202504/25, 04/30/2024, 04/02/2024, Additional history exists CKD HGB USE SMARTSET 02772 05/26/202505/26, 05/26/2024, 05/07/2024, Additional history exists Pneumococcal [...] pacemaker in situ Coronary artery disease involving [place] coronary artery of [place] heart without angina pectoris Hypertensive heart and [...] Documents on File Type Date Recorded 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
--- OUTSIDE RECORDS SUMMARY | 2024-08-08 16:54 | External Medical Summary | Summary of Care ---
Author Name Unknown Organization [facility] Address [address] [place] [address] Phone [phone] Care Team Providers Care Nurse Infection Control Name Role Phone Verónica Benavides MD Primary Care Provide r Reason for Visit * Reason Onset Date Comments [facility]: Acute 07/23/2024 Encounter Details Date Type Department Care Team (Late st Contact Info) Description 07/23/2024 9:30 AM EST Scheduled Telephone [facility], [facility] [address] [place] [address] [facility], Nurse [facility] [address] [place] [address] Allergies Active Allergy Reactions Criticality Noted Date [...] 1 05/30/20 23 Active OneTouch Delica Plus [id number] ns:Type 2 diabetes mellitus with hemoglobin A1c goal of less than 8.0% ([facility]) Test up to two times daily or as directed by [facility] pharmacist 200 Each 3 07/11/20 23 [...] XL)Indications:Non -ischemic cardiomyopathy (HCC),Coronary artery disease involving [place] [...] Assessment & Plan (08/29/2021 1:27 PM EST): [facility] Triage [...] Assessment & Plan (01/14/2022 1:57 PM EDT): [facility] Call: I'm not sure who [...] Assessment & Plan (08/29/2021 1:21 PM EST): [facility] Triage Call: Based on what is [...] [place] heart without angina pectoris 07/03/2012 Overview (07/03/2012): [...] mRNA, LNP-s, No Pre serve, 2-Dose Series ([employer]) 08/29/2021,10/23/2020,10/02/2020 COVID-19, MRNA-LNP, PF, 30 M CG/0.3 mL, 12 YRS AND ABOVE, IM ([employer]-Comirnaty) 08/04/2023 Covid-19, Mrna, Lnp-s, Pf, B ivalent, [...] 07/23/2024 9:49 AM EST [facility] channel marketing program manager Acute Call Date: 07/23/2024 Time: 9:49 AM Name: Regla Castano : 1935 Caller: Josselyn Relationship to pt: daughter Chief Complaint Patient presents with [facility]: Acute HPI: Regla Castano is a 89 year old female that is calling [facility] to report increased SOB,cough, rattle in chest. Communication Note Name: Regla Castano Situation: 89 yr old pt lives in [place], daughter reports deep cough with rattle in her chest Background: HF, CKD, CAD, anemia, recurrent UTI, DM 2 Assessment: pt's daughter reports that the pt was dc from [facility] yesterday for a stay for HF [...] today. - discussed pt with Mary MCWILLIAMS- airport operations officer. Recommended Telemed today. TT message sent to the [facility] planner scheduler to arrange tele med appt for today. [...] Description 07/26/2024 12:20 PM EST Telemedicine Family [address] [phone] Verónica Benavides MD [address] [place] [address] [place] [address] 07/30/2024 2:30 PM EST [facility], [facility] 132 [facility] [place] [address] Destiny Shcultz, POPPY 132 [facility] [place] [address] 09/16/2024 3:00 PM EST [facility] Visit [facility], [facility] 132 [facility] [place] [address] Brandt Santacruz PA-C 132 [facility] [place] [address] 10/01/2024 1:00 PM EST Telemedicine Family Medicine [address] [place] [phone] Kusum Jones CRNP [address] [place] [address] [place] [address] 10/13/2024 11:30 AM EST Telemedicine Urology, [facility] [address] [facility] [place] [address] Chandler Pena MD [place] [address] 11/24/2024 1:40 PM EDT Office Visit Dermatology [address] [place] [address] Sheryl Pena PA-C [address] [place] [address] [place] [address] 04/18/2025 1:20 PM EDT Telemedicine Family Medicine [address] [place] [phone] Verónica Benavides MD [address] [place] [address] [place] [address] Health Maintenance Due Date [...] Additional history exists CKD PHOS USE SMARTSET 72801 05/05/202504/25, 04/30/2024, 04/02/2024, Additional history exists CKD HGB USE SMARTSET 22466 05/26/202505/26, 05/26/2024, 05/07/2024, Additional history exists Pneumococcal [...] Documents on File Type Date 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
--- NOTE | 2024-08-08 17:09 | Emergency Department Note ---
ED Provider Note History of Present Illness Chief Complaint: Urinary Symptoms Stated Complaint: UTI Time Seen by Provider: 08/08/24 16:59 This patient is an 89-year-old female who presents to the emergency department for evaluation of a possible UTI. Patient arrives with her daughter who is one of her caregivers. Daughter states that for the past 4 days the patient has been dizzy, weak and generally "off." She has been complaining of some shortness of breath. Her daughter states that this is her usual presentation of UTIs. 3 days ago, Occupational Therapy was at the patient's house and noted that her urine had a foul smell. Her daughter took a urine sample and to be tested that day. They were contacted by [facility] at home today and told to come to the ER due to ESBL. Patient is on Macrobid daily for UTI prevention, although does have a history of recurrent UTIs. Her most recent was 1 month ago and she did require admission for this. Daughter states that the patient has some slight confusion. Patient notes some dizziness which is slightly worse than her usual vertigo. She denies any abdominal/back pain or vomiting. No fevers. Home Medications Medication Instructions Recorded Confirmed Type cholecalciferol (vitamin D3) 25 1,000 unit PO QAM #30 caps 07/08/24 08/08/24 Rx mcg (1,000 unit) capsule colchicine 0.6 mg tablet 0.6 mg PO BID PRN gout attacks #10 07/08/24 08/08/24 Rx tabs conjugated estrogens 0.625 mg/gram 1 applic vaginal HS #30 grams 07/08/24 08/08/24 Rx vaginal cream (Premarin) cyanocobalamin (vitamin B-12) 1,000 mcg PO QAM #30 tabs 07/08/24 08/08/24 Rx 1,000 mcg tablet (Vitamin B-12) diclofenac sodium 1 % topical gel 2 g topical TID KNEE PAIN #100 07/08/24 08/08/24 Rx grams dulaglutide 0.75 mg/0.5 mL 0.75 mg (0.5 mL) subcut WK #2 mL 07/08/24 08/08/24 Rx subcutaneous pen injector (Trulicity) levothyroxine 88 mcg tablet 88 mcg PO DAILYBB #30 tabs 07/08/24 08/08/24 Rx meclizine 25 mg tablet 25 mg PO TID PRN Dizziness #10 tabs 07/08/24 08/08/24 Rx metoprolol succinate 25 mg 25 mg PO QPM #30 tabs 07/08/24 08/08/24 Rx tablet,extended release 24 hr mirabegron 25 mg tablet,extended 25 mg PO QAM 30 days #30 tabs 07/08/24 08/08/24 Rx release 24 hr (Myrbetriq) omeprazole 20 mg capsule,delayed 20 mg PO DAILYBB #30 caps 07/08/24 08/08/24 Rx release ondansetron HCl 4 mg tablet 4 mg PO Q6H PRN NAUSEA/VOMITING 07/08/24 08/08/24 Rx #10 tabs potassium chloride 20 mEq 20 meq PO BID #60 tabs 07/08/24 08/08/24 Rx tablet,extended release(part/cryst) spironolactone 25 mg tablet 12.5 mg (1/2 x 25 mg) PO QAM #30 07/08/24 08/08/24 Rx (Aldactone) tabs benzonatate 100 mg capsule 100 mg PO TID PRN Cough 08/08/24 08/08/24 History bisacodyl 5 mg tablet,delayed 10 mg PO BID PRN no BM within 24 08/08/24 08/08/24 History release (Dulcolax (bisacodyl)) hours d-mannose 500 mg capsule 1,000 mg PO BID 08/08/24 08/08/24 History glucosamine sulf dipot 1 cap PO BID 08/08/24 08/08/24 History chlr,msm,chond 550 mg-C 30 mg-vandana 1 mg capsule (Glucosamine Chondroitin) magnesium oxide 400 mg (241.3 mg 400 mg PO QDL 08/08/24 08/08/24 History magnesium) tablet nitrofurantoin 100 mg PO HS 08/08/24 08/08/24 History monohydrate/macrocrystals 100 mg capsule (Macrobid) polyethylene glycol 3350 17 17 g PO QAM 08/08/24 08/08/24 History gram/dose oral powder (Miralax) sennosides 8.6 mg-docusate sodium 3 tab-cap PO BID 08/08/24 08/08/24 History 50 mg tablet (Stool Softener-Laxative) torsemide 100 mg tablet 100 mg PO BID 08/08/24 08/08/24 History Allergies Allergy/AdvReac Type Severity Reaction Status Date / Time aspirin Allergy Intermediate Hives, Verified 07/04/24 21:25 shortness of breath ibuprofen Allergy Intermediate Rash, hives Verified 07/04/24 21:25 Penicillins Allergy Intermediate Rash, hives Verified 07/04/24 21:25 adhesive Allergy Mild Reddened Verified 07/04/24 21:25 and sore skin morphine AdvReac Severe BLACKED OUT Verified 07/04/24 21:25 ciprofloxacin AdvReac Intermediate DIZZINESS/H Verified 07/04/24 21:25 OARSE/DISOR IENTED sulfamethoxazole AdvReac Intermediate NAUSEA/VOMI Verified 07/04/24 21:25 [From Bactrim] TING/DIZZIN ESS trimethoprim [From Bactrim] AdvReac Intermediate NAUSEA/VOMI Verified 07/04/24 21:25 TING/DIZZIN ESS prednisone AdvReac Mild CONFUSION/BLURRED Verified 07/04/24 21:25 VISION/WEAKNESS Past Med/Surg History Problem List (Updated 08/08/24 @ 22:07 by Khadijah Camp PA-C) UTI (urinary tract infection) (Acute) Nausea (Acute) Anemia (Acute) Constipation (Acute) Acute metabolic encephalopathy Complicated urinary tract infection (Acute) Non-ST elevation VT (NSTEMI) (Acute) Elevated lactic acid level (Acute) Generalized weakness (Acute) Physical deconditioning Asymptomatic bacteriuria Acute systolic heart failure due to valvular disease Acute on chronic systolic congestive heart failure Anemia (Acute) CHF (congestive heart failure) (Acute) Shortness of breath (Acute) Nocturnal hypoxia Recurrent UTI Complicated UTI (urinary tract infection) Acute on chronic combined systolic and diastolic heart failure Knee contusion Urinary tract infection due to Proteus Hip pain, acute Ambulatory dysfunction (Acute) Acute knee pain (Acute) STEVE (acute kidney injury) Chronic combined systolic (congestive) and diastolic (congestive) heart failure CHF (congestive heart failure) (Acute) Generalized weakness (Acute) UTI due to extended-spectrum beta lactamase (ESBL) producing Escherichia coli (Acute) UTI due to extended-spectrum beta lactamase (ESBL) producing Escherichia coli Chronic heart failure with preserved ejection fraction Acute on chronic heart failure with preserved ejection fraction (HFpEF) Severe aortic stenosis CHF (congestive heart failure) Cough (Acute) Acute foot pain (Acute) Fall (Acute) HTN (hypertension) Right calcaneal fracture COVID-19 (Acute) DVT prophylaxis UTI due to Klebsiella species Diabetes mellitus, type II (Chronic) Aortic stenosis, moderate (Chronic) Pacemaker (Chronic) Lymphedema (Chronic) Dyspnea on exertion (Acute) History of recurrent UTIs (Chronic) Arthritis (Chronic) LBBB (left bundle branch block) (Chronic) Vertigo (Chronic) Systolic heart failure (Chronic) Hypothyroidism (Chronic) History of knee replacement, total (Chronic) NICM (nonischemic cardiomyopathy) (Chronic) Medical History Dizziness Lactic acidemia Acute UTI Hypoxia Pneumonia Surgical History History of hysterectomy Hx of cholecystectomy Family History Other Diabetes Heart disease Hypertension Social History Smoking Status: Never smoker Second Hand Exposure: No; Do You Dip or Chew Tobacco: No; Hx Alcohol Use: No Hx Substance Use: No Preferred Language: Setswana Communication Ability: Effective Shaper Operator Required: No Beliefs That Will Affect Care: None marital status: / Current Living Situation: Alone Current Living Situation Comment: caregivers current occupational status: retired How many Children do You have: 1 Feels Safe at Home: Yes Assistive Devices: Oxygen - at Night and Walker Physical Exam Vital Signs Vital Signs - 24 hr 08/08/24 16:50 08/08/24 17:35 08/08/24 18:22 Temperature 36.4 C L Temperature Source Temporal Artery Scan Pulse Rate 73 79 Pulse Rate [Finger] 64 Respiratory Rate 16 18 Respiratory Effort / Characteristics Non-Labored Spontaneous Respiratory Depth Normal Blood Pressure 132/70 Blood Pressure [Right Arm] 116/79 Blood Pressure Mean 90 Blood Pressure Mean [Right Arm] 91 Blood Pressure Position [Right Arm] Sitting Pulse Oximetry 96 97 Oxygen Delivery Method Room Air Room Air Sepsis Recent Fever Within 48 Hours No Sepsis New/Unexplained Change in Mental Status No Sepsis Action Taken by Nursing No Action Required 08/08/24 18:22 08/08/24 19:24 Temperature Temperature Source Pulse Rate 64 Pulse Rate [Finger] 69 Respiratory Rate 18 18 Respiratory Effort / Characteristics Non-Labored Spontaneous Respiratory Depth Normal Blood Pressure Blood Pressure [Right Arm] 112/54 L Blood Pressure Mean Blood Pressure Mean [Right Arm] 73 Blood Pressure Position [Right Arm] Sitting Pulse Oximetry 97 96 Oxygen Delivery Method Room Air Room Air Sepsis Recent Fever Within 48 Hours Sepsis New/Unexplained Change in Mental Status Sepsis Action Taken by Nursing VITALS: Vitals are noted on the nurse's note and reviewed by myself. GENERAL: This is an 89-year-old female, in no acute distress, well-developed well-nourished. SKIN: The skin was without rashes. EARS: External auditory canals clear, tympanic membranes pearly phillips without erythema or effusion bilaterally. EYES: Pupils equal round and reactive to light and accommodation. MOUTH: Mucous membranes moist. Tonsils are not enlarged. Pharynx without erythema or exudate. NECK: Supple without nuchal rigidity. No lymphadenopathy. HEART: Regular rate and rhythm without murmurs gallops or rubs. LUNGS: Mild crackles bilateral bases. ABDOMEN: Positive bowel sounds x 4. Soft, nontender to palpation. NEURO: Patient was alert and oriented to person place and time. Course Administered Medications Discontinued Medications Ertapenem (Invanz 1000mg) 1,000 mg in 10 mls @ 2 mls/min IV NOW STA Stop: 08/08/24 18:58 Last Admin: 08/08/24 19:20 Dose: 2 mls/min Documented By: DEANN Medical Decision Making Differential Diagnosis Infection, dehydration, metabolic abnormality, hypo/hyperglycemia, electrolyte disturbance, anemia, hypoxia, cardiac sources, intracerebral event, toxicologic, neurologic, as well as other pathologies. Laboratory Data Attestation: I reviewed the patient's lab results. 08/08/24 18:00 08/08/24 18:00 Lab Results 08/08/24 08/08/24 Range/Units 15:15 18:00 WBC 7.40 (4.8-10.8) K/ul RBC 2.55 L (4.20-5.40) M/uL Hgb 9.7 L (12.0-16.0) g/dl Hct 29.6 L (37.0-47.0) % MCV 116.1 H (80.0-100.0) fL MCH 38.0 H (25.0-34.0) pg MCHC 32.8 (32.0-36.0) g/dL RDW Std Deviation 59.1 H (36.4-46.3) fL RDW Coeff of Jon 14.0 (11.5-14.5) % Plt Count 368 (130-400) K/uL MPV 9.9 (9.4-12.4) fL Immature Gran % (Auto) 0.3 % Neut % (Auto) 48.3 % Lymph % (Auto) 36.8 % [place] % (Auto) 11.5 % Eos % (Auto) 2.3 % Baso % (Auto) 0.8 % Neut # (Auto) 3.58 (1.40-6.50) K/uL Lymph # (Auto) 2.72 (1.20-3.40) K/uL [place] # (Auto) 0.85 H (0.11-0.59) K/uL Eos # (Auto) 0.17 (0.00-0.50) K/uL Baso # (Auto) 0.06 (0.00-0.20) K/uL Immature Gran # (Auto) 0.02 (0.01-0.20) K/uL Absolute Nucleated RBC 0.02 (0.00-0.12) K/uL Nucleated RBC % (auto) 0.3 % Polychromasia 1+ Macrocytosis Present Sodium 138 (136-145) mmol/L Potassium 3.7 (3.5-5.1) mmol/L Chloride 100 (98-107) mmol/L Carbon Dioxide 31 (21-32) mmol/L Anion Gap 7 (3-11) BUN 21 (6-23) mg/dl Creatinine 0.88 (0.6-1.2) mg/dl Est Cr Clr Drug Dosing 51.1 ml/min eGFR 62.78 BUN/Creatinine Ratio 23.9 H (10-20) Glucose 153 H (70-99(Fasting)) mg/dl Lactate 1.8 (0.4-2.0) mmol/L Calcium 9.3 (8.6-10.3) mg/dl Magnesium 1.9 (1.7-2.4) mg/dl Total Bilirubin 0.4 (0.2-1.0) mg/dl AST 12 L (13-39) U/L ALT 8 (7-52) U/L Alkaline Phosphatase 77 (34-104) U/L Troponin I High Sens 18.8 H (0-14) pg/ml B-Natriuretic Peptide 615 H (0-100) pg/ml Total Protein 7.6 (6.0-8.3) gm/dl Albumin 4.1 (3.4-5.0) gm/dl Globulin 3.5 (2.5-4.0) gm/dl Albumin/Globulin Ratio 1.2 (0.9-2) Urine Color Yellow Urine Appearance Cloudy A (Clear) Urine pH 6.0 (4.5-7.5) Ur Specific [place] 1.008 (1.000-1.030) Urine Protein Negative (Negative) Urine Glucose (UA) Negative (Negative) Urine Ketones Negative (Negative) Urine Blood Trace H (Negative) Urine Nitrite Negative (Negative) Urine Bilirubin Negative (Negative) Urine Urobilinogen Negative (Negative) Ur Leukocyte Esterase 3+ H (Negative) Urine WBC (Auto) >50 H (0-5) /hpf Urine RBC (Auto) 0-2 (0-2) /hpf U Hyaline Cast (Auto) 3-5 H (0-2) /lpf U Epithel Cells (Auto) 0-2 (0-2) /hpf Urine Bacteria (Auto) 4+ H (None Seen) Imaging Data Attestation: I personally reviewed and interpreted this imaging study as follows: Radiologist's Impression: Chest X-Ray 08/08/24 17:23 EXAM: XR chest 1V portable CLINICAL HISTORY: HX OF CHF CHEST PAIN SRM/LDS TECHNIQUE: An X-ray image of the chest is obtained in AP projection. COMPARISON: CR 07/04/2024 FINDINGS: Pulmonary Parenchyma: Bilateral increased bronchovascular markings. No evident consolidation seen. No pleural effusion. Heart and Mediastinum: Increased cardiothoracic ratio due to cardiomegaly. Presence of a dual chamber pacemaker. Enlarged hilar region interpreted as congestive changes. Bony Thorax: Bony thorax appears intact without fractures or deformities. Soft tissues: Cardiac monitoring electrodes. IMPRESSION: 1. Cardiomegaly and bilateral increased bronchovascular markings could correspond with congestive changes. 2. Interval worsening. Correlate clinically. Follow-up recommended. Electronically signed by Teresa Robert 08-08-2024 6:38 PM MDM Narrative Continuous residential monitor: Order was placed for continuous residential monitor. Patient was placed on the residential monitor. Patient was noted to be in normal sinus rhythm at an initial rate of 70 bpm. The patient is an 89-year-old female who presents today for evaluation of ESBL UTI. I did review the culture from the [facility] [place] system from 08/11 which shows greater than 100,000 colonies ESBL, sensitive to ampicillin/sulbactam, gentamicin, meropenem, piperacillin/tazobactam, and trimethoprim/sulfamethoxazole. Due to patient's allergies, she will be given ertapenem. Labs showed no leukocytosis. Lactate is not elevated. Troponin is 18.8 which appears to be the patient's baseline. BNP is elevated and chest x- ray does show some evidence of pulmonary edema. Will defer diuresis to the hospitalist team. Case was discussed with the [facility] hospitalist service who agreed to evaluate the patient for further care. Impression UTI (urinary tract infection) Discharge Plan Visit Data Chief Complaint: Urinary Symptoms Stated Complaint: UTI ED Provider: Sekou Serrano ED Midlevel Provider: Khadijah Camp Discharge Problem: UTI (urinary tract infection) Patient Disposition: Admitted As Inpatient Discharge Instructions Interventions: ED Discharge Assessment Last Done: 08/08/24 21:26
[2024-08-08 18:29] LABS: Basophils # (auto) 0.06 K/uL (0.00-0.20); Basophils % (auto) 0.8 %; Eosinophils # (auto) 0.17 K/uL (0.00-0.50); Eosinophils % (auto) 2.3 %; Hematocrit (blood only) 29.6 % (37.0-47.0); Hemoglobin 9.7 g/dl (12.0-16.0); Immature Granulocytes # (auto) 0.02 K/uL (0.01-0.20); Immature Granulocytes % (auto) 0.3 %; Lymphocytes # (auto) 2.72 K/uL (1.20-3.40); Lymphocytes % (auto) 36.8 %; Mean Corpuscular Hgb Conc 32.8 g/dL (32.0-36.0); Mean Corpuscular Volume 116.1 fL (80.0-100.0); Mean Platelet Volume 9.9 fL (9.4-12.4); Monocytes # (auto) 0.85 K/uL (0.11-0.59); Monocytes % (auto) 11.5 %; Neutrophils # (auto) 3.58 K/uL (1.40-6.50); Neutrophils % (auto) 48.3 %; Nucleated RBC # (auto) 0.02 K/uL (0.00-0.12); Nucleated RBC % (auto) 0.3 %; Platelet Count 368 K/uL (130-400); RDW Standard Deviation 59.1 fL (36.4-46.3); Red Blood Count 2.55 M/uL (4.20-5.40)
--- NOTE | 2024-08-08 18:38 | XRay Report ---
EXAM: XR chest 1V portable CLINICAL HISTORY: HX OF CHF CHEST PAIN SRM/LDS TECHNIQUE: An X-ray image of the chest is obtained in AP projection. COMPARISON: CR 07/04/2024 FINDINGS: Pulmonary Parenchyma: Bilateral increased bronchovascular markings. No evident consolidation seen. No pleural effusion. Heart and Mediastinum: Increased cardiothoracic ratio due to cardiomegaly. Presence of a dual chamber pacemaker. Enlarged hilar region interpreted as congestive changes. Bony Thorax: Bony thorax appears intact without fractures or deformities. Soft tissues: Cardiac monitoring electrodes. IMPRESSION: 1. Cardiomegaly and bilateral increased bronchovascular markings could correspond with congestive changes. 2. Interval worsening. Correlate clinically. Follow-up recommended. Electronically signed by Teresa Robert 08-08-2024 6:38 PM
[2024-08-08 18:43] LABS: Albumin Globulin Ratio 1.2 (0.9-2); Albumin Level 4.1 gm/dl (3.4-5.0); BUN Creatinine Ratio 23.9 (10-20); Bilirubin,Total 0.4 mg/dl (0.2-1.0); Calcium 9.3 mg/dl (8.6-10.3); Creatinine Clr Calc Pharmacy 51.1 ml/min; Globulin 3.5 gm/dl (2.5-4.0); Magnesium 1.9 mg/dl (1.7-2.4); Potassium 3.7 mmol/L (3.5-5.1); Total Protein 7.6 gm/dl (6.0-8.3)
[2024-08-08 18:44] LABS: Macrocytosis Present; Polychromasia 1+
[2024-08-08 18:45] LABS: Appearance Urine Cloudy (Clear); Bacteria Urine Automated 4+ (None Seen); Bilirubin Urine Negative (Negative); Blood Urine Trace (Negative); Color Urine Yellow; Epithelial Cell Urine Auto 0-2 /hpf (0-2); Glucose Urine UA Negative (Negative); Ketones Urine Negative (Negative); Leukocyte Esterase Urine 3+ (Negative); Nitrite Urine Negative (Negative); Protein Urine Negative (Negative); RBC Urine Automated 0-2 /hpf (0-2); Specific Gravity Urine 1.008 (1.000-1.030); Urobilinogen Urine Negative (Negative); WBC Urine Automated >50 /hpf (0-5)
[2024-08-08 18:51] LABS: Troponin I High Sensitivity 18.8 pg/ml (0-14)
[2024-08-08] MEDS: ERTAPENEM 1000MG 1,000 MG/10 ML SYR IV STA (19:20)
--- NOTE | 2024-08-08 20:10 | History & Physical Report ---
Date of Service August 08, 2024 Assessment & Plan (1) CHF (congestive heart failure): (2) UTI (urinary tract infection): Plan Patient 89-year-old female with past medical history significant for type 2 diabetes, CKD stage III, hypothyroidism, hyperlipidemia, chronic combined systolic and diastolic CHF, severe aortic stenosis, history of CAD,biventricular cardiac pacemaker, GERD, morbid obesity, recurrent UTI, lymphedema of both lower extremities Presents to the hospital with complaint of abnormal outpatient urine culture results, shortness of breath and generalized weakness. Acute UTI Generalized weakness Urine culture obtained as outpatient on 08/06 growing ESBL E. coli. Patient reportedly had foul-smelling urine and generalized weakness. No leukocytosis present History of prior episodes of UTI Started on ertapenem, continue. Follow-up on blood culture results. PT OT eval Acute on chronic mildly reduced CHF( HFmfEF) Severe Patient reports history of shortness of breath and bilateral lower extremity edema Currently on torsemide 100 mg twice daily without minimal symptom improvement Recent echo from May shows EF of 45 to 50% with moderate concentric LVH, severe calcific . Previously evaluated for TAVR; deemed not a surgical candidate Started on Lasix 40 mg twice daily Continue on metoprolol, spironolactone Daily weights Strict input and output monitoring Will consult cardiology as patient has minimal symptom improvement with escalating dose of torsemide as outpatient. Type 2 diabetes mellitus HbA1c of 7.3% is in 04/02/2024 Hold home Trulicity Sliding scale Hypertensioncontinue metoprolol spironolactone Hypothyroidismcontinue levothyroxine GERDcontinue omeprazole Chronic anemiahemoglobin around baseline ConstipationMiraLAX daily DVT prophylaxis heparin DNR/DNI as per discussion with patient Time spent evaluating patient, direct bedside care, chart review, placing orders, interpretation of diagnostic studies, discussion with consultants, patient, and family members, as well as other required patient management activities is 75 minutes Please note the above document was generated using voice recognition software. It may contain grammatical, syntax or spelling errors. Any formal questions or concerns about the content, text or information contained within the body of this dictation should be directly addressed to the provider for clarification History of Present Illness Chief Complaint: Abnormal outpatient urine culture results Primary Care Provider: Verónica Benavides MD History obtained from interview with the patient, daughter and chart review. Past medical history of CHF with borderline EF, severe aortic stenosis, hypertension, type 2 diabetes mellitus, CKD type III, hypothyroidism, status post pacemaker, history of recurrent ESBL UTI. Multiple admission in recent months; most recent is from June 19 to June 21 for constipation. Patient was referred by her primary care doctor for several reasons. Patient had outpatient urine culture results from couple of days ago which was positive for ESBL E. coli. Patient was also noted to be short of breath for which torsemide was increased to 100 mg twice daily. However, patient continued to complaint of shortness of breath as well as weakness. Patient reports that she is feeling weak overall; patiently had PT OT come to her house and was getting started on therapy. She also reports getting short of breath on exertion; she walks with the help of rolling walker. She denies any complaints of fever, chills, chest pain, abdominal pain, urinary urgency or frequency. She has 24/ care at home. On presentation to the ED, she was normotensive, afebrile and saturating well on room air. No leukocytosis present. BNP was elevated to 615 PG/mL. Chest x-ray showed mild pulmonary edema. Urinalysis concerning for infection. Patient was given 1 dose of ertapenem; urine culture, blood culture was taken. Patient was referred for admission. Allergies Allergy/AdvReac Type Severity Reaction Status Date / Time aspirin Allergy Intermediate Hives, Verified 07/04/24 21:25 shortness of breath ibuprofen Allergy Intermediate Rash, hives Verified 07/04/24 21:25 Penicillins Allergy Intermediate Rash, hives Verified 07/04/24 21:25 adhesive Allergy Mild Reddened Verified 07/04/24 21:25 and sore skin morphine AdvReac Severe BLACKED OUT Verified 07/04/24 21:25 ciprofloxacin AdvReac Intermediate DIZZINESS/H Verified 07/04/24 21:25 OARSE/DISOR IENTED sulfamethoxazole AdvReac Intermediate NAUSEA/VOMI Verified 07/04/24 21:25 [From Bactrim] TING/DIZZIN ESS trimethoprim [From Bactrim] AdvReac Intermediate NAUSEA/VOMI Verified 07/04/24 21:25 TING/DIZZIN ESS prednisone AdvReac Mild CONFUSION/BLURRED Verified 07/04/24 21:25 VISION/WEAKNESS Home Medications Medication Instructions Recorded Confirmed Type cholecalciferol (vitamin D3) 25 1,000 unit PO QAM #30 caps 07/08/24 08/08/24 Rx mcg (1,000 unit) capsule colchicine 0.6 mg tablet 0.6 mg PO BID PRN gout attacks #10 07/08/24 08/08/24 Rx tabs conjugated estrogens 0.625 mg/gram 1 applic vaginal HS #30 grams 07/08/24 08/08/24 Rx vaginal cream (Premarin) cyanocobalamin (vitamin B-12) 1,000 mcg PO QAM #30 tabs 07/08/24 08/08/24 Rx 1,000 mcg tablet (Vitamin B-12) diclofenac sodium 1 % topical gel 2 g topical TID KNEE PAIN #100 07/08/24 08/08/24 Rx grams dulaglutide 0.75 mg/0.5 mL 0.75 mg (0.5 mL) subcut WK #2 mL 07/08/24 08/08/24 Rx subcutaneous pen injector (Trulicity) levothyroxine 88 mcg tablet 88 mcg PO DAILYBB #30 tabs 07/08/24 08/08/24 Rx meclizine 25 mg tablet 25 mg PO TID PRN Dizziness #10 tabs 07/08/24 08/08/24 Rx metoprolol succinate 25 mg 25 mg PO QPM #30 tabs 07/08/24 08/08/24 Rx tablet,extended release 24 hr mirabegron 25 mg tablet,extended 25 mg PO QAM 30 days #30 tabs 07/08/24 08/08/24 Rx release 24 hr (Myrbetriq) omeprazole 20 mg capsule,delayed 20 mg PO DAILYBB #30 caps 07/08/24 08/08/24 Rx release ondansetron HCl 4 mg tablet 4 mg PO Q6H PRN NAUSEA/VOMITING 07/08/24 08/08/24 Rx #10 tabs potassium chloride 20 mEq 20 meq PO BID #60 tabs 07/08/24 08/08/24 Rx tablet,extended release(part/cryst) spironolactone 25 mg tablet 12.5 mg (1/2 x 25 mg) PO QAM #30 07/08/24 08/08/24 Rx (Aldactone) tabs benzonatate 100 mg capsule 100 mg PO TID PRN Cough 08/08/24 08/08/24 History bisacodyl 5 mg tablet,delayed 10 mg PO BID PRN no BM within 24 08/08/24 08/08/24 History release (Dulcolax (bisacodyl)) hours d-mannose 500 mg capsule 1,000 mg PO BID 08/08/24 08/08/24 History glucosamine sulf dipot 1 cap PO BID 08/08/24 08/08/24 History chlr,msm,chond 550 mg-C 30 mg-vandana 1 mg capsule (Glucosamine Chondroitin) magnesium oxide 400 mg (241.3 mg 400 mg PO QDL 08/08/24 08/08/24 History magnesium) tablet nitrofurantoin 100 mg PO HS 08/08/24 08/08/24 History monohydrate/macrocrystals 100 mg capsule (Macrobid) polyethylene glycol 3350 17 17 g PO QAM 08/08/24 08/08/24 History gram/dose oral powder (Miralax) sennosides 8.6 mg-docusate sodium 3 tab-cap PO BID 08/08/24 08/08/24 History 50 mg tablet (Stool Softener-Laxative) torsemide 100 mg tablet 100 mg PO BID 08/08/24 08/08/24 History Past Med/Surg History Problem List (Updated 08/08/24 @ 00:07 by Background David) Nausea (Acute) Anemia (Acute) Constipation (Acute) Acute metabolic encephalopathy Complicated urinary tract infection (Acute) Non-ST elevation PR (NSTEMI) (Acute) Elevated lactic acid level (Acute) Generalized weakness (Acute) Physical deconditioning Asymptomatic bacteriuria Acute systolic heart failure due to valvular disease Acute on chronic systolic congestive heart failure Anemia (Acute) CHF (congestive heart failure) (Acute) Shortness of breath (Acute) Nocturnal hypoxia Recurrent UTI Complicated UTI (urinary tract infection) Acute on chronic combined systolic and diastolic heart failure Knee contusion Urinary tract infection due to Proteus Hip pain, acute Ambulatory dysfunction (Acute) Acute knee pain (Acute) STEVE (acute kidney injury) Chronic combined systolic (congestive) and diastolic (congestive) heart failure CHF (congestive heart failure) (Acute) Generalized weakness (Acute) UTI due to extended-spectrum beta lactamase (ESBL) producing Escherichia coli (Acute) UTI due to extended-spectrum beta lactamase (ESBL) producing Escherichia coli Chronic heart failure with preserved ejection fraction Acute on chronic heart failure with preserved ejection fraction (HFpEF) Severe aortic stenosis CHF (congestive heart failure) Cough (Acute) Acute foot pain (Acute) Fall (Acute) HTN (hypertension) Right calcaneal fracture COVID-19 (Acute) DVT prophylaxis UTI due to Klebsiella species Diabetes mellitus, type II (Chronic) Aortic stenosis, moderate (Chronic) Pacemaker (Chronic) Lymphedema (Chronic) Dyspnea on exertion (Acute) History of recurrent UTIs (Chronic) Arthritis (Chronic) LBBB (left bundle branch block) (Chronic) Vertigo (Chronic) Systolic heart failure (Chronic) Hypothyroidism (Chronic) History of knee replacement, total (Chronic) NICM (nonischemic cardiomyopathy) (Chronic) Medical History Dizziness Lactic acidemia Acute UTI Hypoxia Pneumonia Surgical History History of hysterectomy Hx of cholecystectomy Family History Other Diabetes Heart disease Hypertension Social History Smoking Status: Never smoker Second Hand Exposure: No; Do You Dip or Chew Tobacco: No; Hx Alcohol Use: No Hx Substance Use: No Preferred Language: Haitian Communication Ability: Effective Hammerer Required: No Beliefs That Will Affect Care: None marital status: / Current Living Situation: Alone Current Living Situation Comment: caregivers current occupational status: retired How many Children do You have: 1 Feels Safe at Home: Yes Assistive Devices: Oxygen - at Night and Walker Review of Systems Review of Systems: All systems reviewed & are unremarkable except as noted in Subjective Physical Exam Physical Exam: Constitutional: Awake, alert oriented x 3. Appears tired. Not in distress. Respiratory: Occasional crackles at bases. Cardiovascular: RRR, systolic murmur present. Chest: normal inspection of chest Abdomen: normal bowel sounds, soft, nontender, no hepatosplenomegaly Musculoskeletal: no cyanosis or clubbing, extremities motor strength 4/5 in b/l LE Skin: 2+ pitting edema present at bilateral lower extremities. Neurologic: PERRL, EOMI, accommodation nl, no face palsy, no dysarthria CN's II- XI intact bilaterally and moves all extremities Psychiatric: A+Ox3, euthymic affect Results & Data Results & Data Vital Signs (Past 12 Hours) Vital Signs Temp Pulse Pulse Resp BP BP Pulse Ox 08/08/24 19:24 69 18 112/54 L 96 08/08/24 18:22 64 18 97 08/08/24 18:22 64 18 116/79 97 08/08/24 17:35 79 08/08/24 16:50 36.4 C L 73 16 132/70 96 O2 Del Method 08/08/24 19:24 Room Air 08/08/24 18:22 Room Air 08/08/24 18:22 Room Air 08/08/24 17:35 08/08/24 16:50 Room Air (1) CHF (congestive heart failure) Heart failure chronicity: unspecified Heart failure type: unspecified Qualified Code(s): I50.9 - Heart failure, unspecified (2) UTI (urinary tract infection) Hematuria presence: without hematuria Urinary tract infection type: site unspecified Qualified Code(s): N39.0 - Urinary tract infection, site not spec ified
--- OUTSIDE RECORDS SUMMARY | 2024-08-08 21:51 | External Medical Summary | Summary of Care ---
Author Name Unknown Organization [facility] Address [address] [place] [address] Phone [phone] Care Team Providers Care Electronics Assembler Name Role Phone Verónica Benavides MD Primary Care Provide r Reason for Visit * Reason Onset Date Comments [facility]: Maintenance 08/08/2024 Encounter Details Date Type Department Care Team (Late st Contact Info) Description 08/08/2024 2:00 PM EST Scheduled Telephone [facility], [facility] [address] [place] [address] [facility], Nurse [facility] [address] [place] [address] Allergies Active Allergy Reactions Criticality Noted Date [...] XL)Indications:Non -ischemic cardiomyopathy (HCC),Coronary artery disease involving [place] coronary artery of [place] heart without angina pectoris,HTN, goal below 140/90 [...] Tablet 3 08/06/20 Active OneTouch Delica Plus [id number] ns:Type 2 diabetes mellitus with hemoglobin A1c goal of less than 8.0% ([facility]) Test up to two times daily or as directed by [facility] pharmacist 200 Each 3 08/06/20 Active OneTouch [...] Assessment & Plan (08/29/2021 1:27 PM EST): [facility] Triage Call: Reviewed last [...] Assessment & Plan (01/14/2022 1:57 PM EDT): [facility] Call: I'm not sure who Dr Dominguez [...] Assessment & Plan (08/29/2021 1:21 PM EST): [facility] Triage Call: Based on what is [...] synthroid Coronary artery disease invo lving [place] coronary artery of [place] heart without angina pectoris 07/03/2012 Overview (07/03/2012): [...] mRNA, LNP-s, No Pre serve, 2-Dose Series ([place]) 08/29/2021,10/23/2020,10/02/2020 COVID-19, MRNA-LNP, PF, 30 M CG/0.3 mL, 12 YRS AND ABOVE, IM ([place] [employer]) 08/04/2023 Covid-19, Mrna, Lnp-s, Pf, B ivalent, 30 Mcg, IM, 12 yrs and above ([place]) 08/02/2022 Pneumococcal Conjugate Vacc, 13 Valent (Prevnar) [...] in agreement. She is taking to non [facility] facility which is close by. Culture results [...] but no answer. Message left to back [facility]. Please provide recommendations when calls back and if in agreement will send bactrim and zofran to preferred pharmacy. * Telephone Encounter - Vero Buckner RN - 08/08/2024 1:18 PM EST Please review prelim urine results Exacerbation plan notes Pt has been tx in the home with IV ertapenem for [id number]-urine GAH keeps on hand. -there are some [...] 7:00 AM EST Laboratory Lab [facility] Phlebotomy [facility] [address] [facility] [place] [address] [facility] Draw [address] [facility] [place] [address] 08/23/2024 12:30 PM EST Home Visit [facility], [facility] [address] [facility] [place] [address] Destiny Schultz, POPPY [address] [facility] [place] [address] 09/16/2024 3:00 PM EST Home Visit [facility], [facility] [address] [facility] [place] [address] Brandt Santacruz PA-C [address] [facility] [place] [address] 10/01/2024 1:00 PM EST Telemedicine Family Medicine [address] [place] [phone] Kusum Jones CRNP [address] [place] [address] [place] [address] 10/13/2024 11:30 AM EST Telemedicine Urology, [facility] [address] [facility] [place] [address] Chandler Pena MD [address] [place] [address] 11/24/2024 1:40 PM EDT Office Visit Dermatology [address] [place] [address] Sheryl Pena PA-C [address] [place] [address] [place] [address] 04/18/2025 1:20 PM EDT Telemedicine Family Medicine [address] [place] [phone] Verónica Benavides MD [address] [place] [address] [place] [id number] Health Maintenance Due Date [...] Additional history exists CKD PHOS USE SMARTSET 73518 05/05/202504/25, 04/30/2024, 04/02/2024, Additional history exists CKD HGB USE SMARTSET 43734 08/04/202508/04, 08/04/2024, 05/26/2024, Additional history exists Pneumococcal [...] Documents on File Type Date Recorded 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
[2024-08-08] MEDS ORDERED: ACETAMINOPHEN 325 MG TAB PO PRN (21:54)
[2024-08-08] MEDS ORDERED: GLUCAGON FOR INJ 1 MG VIAL SQ PRN (21:54)
[2024-08-08] MEDS ORDERED: GLUCOSE 40% GEL 15 GM TUBE PO PRN (21:54)
[2024-08-08] MEDS ORDERED: NON-FORMULARY MEDICATION (D-Mannose 500 mg Capsule) PO SCH (21:54)
[2024-08-08] MEDS ORDERED: GLUCOSE 10 TAB/TUBE PO PRN (21:54)
[2024-08-08] MEDS ORDERED: bisacodyL 5 MG TABEC PO PRN (21:54)
[2024-08-08] MEDS ORDERED: CARBOHYDRATES FOR HYPOGLYCEMIA PO PRN (21:54)
[2024-08-08] MEDS ORDERED: DEXTROSE 50% 50 ML SYRINGE IV PRN (21:54)
[2024-08-08] MEDS: DOCUSATE SODIUM/SENNA 50/8.6MG TAB PO SCH (23:09)
[2024-08-08] MEDS: POTASSIUM CHLORIDE CRTAB 20 MEQ TABCR PO SCH (23:10)
[2024-08-08] MEDS: HEPARIN SOD 5,000 UNIT/0.5 ML VIAL SQ SCH (23:10)
[2024-08-08] MEDS: INSULIN ASPART PER UNIT CHARGE SC SCH (23:10)
[2024-08-08] MEDS: METOPROLOL SUCC 25MG EXT REL TAB PO SCH (23:16)
[2024-08-09] MEDS: PANTOprazole 40 MG TAB PO SCH (05:43)
[2024-08-09] MEDS: LEVOTHYROXINE SODIUM 88 MCG TABLET PO SCH (05:43)
[2024-08-09] MEDS: FUROSEMIDE 40 MG/4 ML VIAL IV SCH (05:45)
[2024-08-09] MEDS: VIBEGRON 75 MG TAB PO SCH (07:51)
[2024-08-09] MEDS: CYANOCOBALAMIN (B-12) 500 MCG TABLET PO SCH (07:51)
[2024-08-09] MEDS: SPIRONOLACTONE 12.5 MG TAB PO SCH (07:51)
[2024-08-09] MEDS: CHOLECALCIFEROL 25 MCG (1000 UNITS) TAB PO SCH (07:51)
[2024-08-09] MEDS: POLYETHYLENE (MIRALAX) 17 GM PACK PO SCH (08:11)
[2024-08-09] MEDS ORDERED: POLYETHYLENE (MIRALAX) 17 GM PACK PO SCH (09:00)
[2024-08-09 09:12] LABS: Basophils # (auto) 0.05 K/uL (0.00-0.20); Basophils % (auto) 0.7 %; Eosinophils # (auto) 0.13 K/uL (0.00-0.50); Eosinophils % (auto) 1.9 %; Hematocrit (blood only) 28.4 % (37.0-47.0); Hemoglobin 9.4 g/dl (12.0-16.0); Immature Granulocytes # (auto) 0.03 K/uL (0.01-0.20); Immature Granulocytes % (auto) 0.4 %; Lymphocytes # (auto) 2.01 K/uL (1.20-3.40); Lymphocytes % (auto) 29.3 %; Mean Corpuscular Hemoglobin 38.5 pg (25.0-34.0); Mean Corpuscular Hgb Conc 33.1 g/dL (32.0-36.0); Mean Corpuscular Volume 116.4 fL (80.0-100.0); Mean Platelet Volume 9.9 fL (9.4-12.4); Monocytes # (auto) 0.75 K/uL (0.11-0.59); Monocytes % (auto) 10.9 %; Neutrophils # (auto) 3.89 K/uL (1.40-6.50); Neutrophils % (auto) 56.8 %; Platelet Count 371 K/uL (130-400); RDW Coefficient of Variation 13.9 % (11.5-14.5); RDW Standard Deviation 59.7 fL (36.4-46.3); Red Blood Count 2.44 M/uL (4.20-5.40); White Blood Count 6.86 K/ul (4.8-10.8)
[2024-08-09 09:25] LABS: BUN Creatinine Ratio 21.1 (10-20); Calcium 9.3 mg/dl (8.6-10.3); Creatinine Clr Calc Pharmacy 47.3 ml/min; Potassium 3.8 mmol/L (3.5-5.1)
[2024-08-09 09:36] LABS: Macrocytosis Present; Polychromasia 1+
--- NOTE | 2024-08-09 10:50 | Hospitalist Progress Note ---
Date of Service August 09, 2024 Assessment & Plan (1) UTI (urinary tract infection): Plan: This is most likely acute cystitis, the urine culture from yesterday showed presence of E. coli, patient is on ertapenem, await sensitivity results. Otherwise patient is clinically stable. (2) CHF (congestive heart failure): Plan: This is chronic combined systolic and diastolic per records. Continue with IV Lasix for now which is understandable but eventually can be transition back to home regimen. Continue with Aldactone 12.5 mg daily, Toprol XL 25 mg. Daily. Last echocardiogram on 06/10/2024 showed EF of 45 to 50% with moderate concentric LVH. Chest x-ray on this admission showed slightly prominent markings compatible with minimal volume overload. (3) Hypothyroidism (acquired): Plan: Continue with home dose of Synthroid 88 mcg daily. (4) Diabetes mellitus type 2, controlled: Plan: Blood sugars relatively stable, while inpatient May use sliding scale coverage of insulin, upon discharge may transition back to home regimen of Trulicity. Plan continue with Invanz, await finalization of urine culture hopefully tomorrow we might be able to transition her to oral antibiotic and possibly discharge her. Also tomorrow we put her back on her home dose of torsemide. Admission and Anticipated Discharge Date Admission Date: August 08, 2024 Subjective Patient is a very pleasant very pleasant 89-year-old female with history of diabetes mellitus type 2, CKD stage III, hypothyroidism, hyperlipidemia and chronic combined systolic and diastolic CHF, severe aortic stenosis status post biventricular pacemaker who apparently has had recurrent UTI who was admitted after she was found to have an abnormal urinalysis, patient apparently had ESBL E. coli in urine culture on 08/08 which is pending sensitivity. Patient was seen and examined, clinically stable and seems to be at baseline. Physical Exam Physical Exam: VITALS: Reviewed. WEIGHT/BMI reviewed. GEN: Healthy appearing, well-developed, NAD. NECK: Supple, with no masses. CV: RRR, no m/r/g. LUNGS: CTAB, no w/r/c. ABD: Soft, NT/ND, NBS, no masses or organomegaly. : N/A EXT: Lower extremities are puffy but I do not think this is swollen Results & Data Results & Data Vital Signs (Past 12 Hours) Vital Signs Temp Pulse Resp BP Pulse Ox O2 Del Method 08/09/24 05:41 36.6 C 64 16 112/64 94 Room Air Laboratory Results Laboratory Results - last 24 hr 08/08/24 08/08/24 08/09/24 15:15 18:00 07:40 WBC 7.40 RBC 2.55 L Hgb 9.7 L Hct 29.6 L MCV 116.1 H MCH 38.0 H MCHC 32.8 RDW Std Deviation 59.1 H RDW Coeff of Jon 14.0 Plt Count 368 MPV 9.9 Immature Gran % (Auto) 0.3 Neut % (Auto) 48.3 Lymph % (Auto) 36.8 Jennings % (Auto) 11.5 Eos % (Auto) 2.3 Baso % (Auto) 0.8 Neut # (Auto) 3.58 Lymph # (Auto) 2.72 Jennings # (Auto) 0.85 H Eos # (Auto) 0.17 Baso # (Auto) 0.06 Immature Gran # (Auto) 0.02 Absolute Nucleated RBC 0.02 Nucleated RBC % (auto) 0.3 Polychromasia 1+ Macrocytosis Present Sodium 138 Potassium 3.7 Chloride 100 Carbon Dioxide 31 Anion Gap 7 BUN 21 Creatinine 0.88 Est Cr Clr Drug Dosing 51.1 eGFR 62.78 BUN/Creatinine Ratio 23.9 H Glucose 153 H POC Glucose 142 H Lactate 1.8 Calcium 9.3 Magnesium 1.9 Total Bilirubin 0.4 AST 12 L ALT 8 Alkaline Phosphatase 77 Troponin I High Sens 18.8 H B-Natriuretic Peptide 615 H Total Protein 7.6 Albumin 4.1 Globulin 3.5 Albumin/Globulin Ratio 1.2 Urine Color Yellow Urine Appearance Cloudy A Urine pH 6.0 Ur Specific Zalma 1.008 Urine Protein Negative Urine Glucose (UA) Negative Urine Ketones Negative Urine Blood Trace H Urine Nitrite Negative Urine Bilirubin Negative Urine Urobilinogen Negative Ur Leukocyte Esterase 3+ H Urine WBC (Auto) >50 H Urine RBC (Auto) 0-2 U Hyaline Cast (Auto) 3-5 H U Epithel Cells (Auto) 0-2 Urine Bacteria (Auto) 4+ H 08/09/24 08:55 WBC 6.86 RBC 2.44 L Hgb 9.4 L Hct 28.4 L MCV 116.4 H MCH 38.5 H MCHC 33.1 RDW Std Deviation 59.7 H RDW Coeff of Jon 13.9 Plt Count 371 MPV 9.9 Immature Gran % (Auto) 0.4 Neut % (Auto) 56.8 Lymph % (Auto) 29.3 Jennings % (Auto) 10.9 Eos % (Auto) 1.9 Baso % (Auto) 0.7 Neut # (Auto) 3.89 Lymph # (Auto) 2.01 Jennings # (Auto) 0.75 H Eos # (Auto) 0.13 Baso # (Auto) 0.05 Immature Gran # (Auto) 0.03 Absolute Nucleated RBC Nucleated RBC % (auto) Polychromasia 1+ Macrocytosis Present Sodium 139 Potassium 3.8 Chloride 102 Carbon Dioxide 29 Anion Gap 8 BUN 20 Creatinine 0.95 Est Cr Clr Drug Dosing 47.3 eGFR 57.27 BUN/Creatinine Ratio 21.1 H Glucose 191 H POC Glucose Lactate Calcium 9.3 Magnesium Total Bilirubin AST ALT Alkaline Phosphatase Troponin I High Sens B-Natriuretic Peptide Total Protein Albumin Globulin Albumin/Globulin Ratio Urine Color Urine Appearance Urine pH Ur Specific Zalma Urine Protein Urine Glucose (UA) Urine Ketones Urine Blood Urine Nitrite Urine Bilirubin Urine Urobilinogen Ur Leukocyte Esterase Urine WBC (Auto) Urine RBC (Auto) U Hyaline Cast (Auto) U Epithel Cells (Auto) Urine Bacteria (Auto) Diagnostic Findings Chest X-Ray 08/08/24 17:23 EXAM: XR chest 1V portable CLINICAL HISTORY: HX OF CHF CHEST PAIN SRM/LDS TECHNIQUE: An X-ray image of the chest is obtained in AP projection. COMPARISON: CR 07/04/2024 FINDINGS: Pulmonary Parenchyma: Bilateral increased bronchovascular markings. No evident consolidation seen. No pleural effusion. Heart and Mediastinum: Increased cardiothoracic ratio due to cardiomegaly. Presence of a dual chamber pacemaker. Enlarged hilar region interpreted as congestive changes. Bony Thorax: Bony thorax appears intact without fractures or deformities. Soft tissues: Cardiac monitoring electrodes. IMPRESSION: 1. Cardiomegaly and bilateral increased bronchovascular markings could correspond with congestive changes. 2. Interval worsening. Correlate clinically. Follow-up recommended. Electronically signed by Teresa Robert 08-08-2024 6:38 PM Medications Administered Current Inpatient Medications Acetaminophen (Acetaminophen 325 Mg Tab) 650 mg PO Q4H PRN PRN Reason: pain/fever Stop: 09/07/24 21:53 Bisacodyl (Bisacodyl 5 Mg Tabec) 10 mg PO BID PRN PRN Reason: no BM within 24 hours Stop: 09/07/24 21:53 Cyanocobalamin (Cyanocobalamin (B-12) 500 Mcg Tablet) 1,000 mcg PO QAM BRENT Stop: 09/08/24 08:59 Last Admin: 08/09/24 07:51 Dose: 1,000 mcg Dextrose (Dextrose 50% 50 Ml Syringe) 25 - 50 ml IV UD PRN; Protocol PRN Reason: Hypoglycemia Protocol Stop: 09/07/24 21:53 Furosemide (Furosemide 40 Mg/4 Ml Vial) 40 mg IV [id number] BRENT Stop: 09/08/24 06:59 Last Admin: 08/09/24 05:45 Dose: 40 mg Glucagon (Glucagon For Inj 1 Mg Vial) 1 mg SQ UD PRN; Protocol PRN Reason: Hypoglycemia Protocol Stop: 09/07/24 21:53 Glucose (Glucose 40% Gel 15 Gm Tube) 15 - 30 gm PO UD PRN; Protocol PRN Reason: Hypoglycemia Protocol Stop: 09/07/24 21:53 Glucose (Glucose 10 Tab/Tube) 4 - 8 tab PO UD PRN; Protocol PRN Reason: Hypoglycemia Protocol Stop: 09/07/24 21:53 Heparin Sodium (Porcine) (Heparin Sod 5,000 Unit/0.5 Ml Vial) 5,000 units SQ Q8 BRENT Stop: 09/07/24 21:59 Last Admin: 08/09/24 05:42 Dose: 5,000 units Ertapenem (Invanz 1000mg) 1,000 mg in 10 mls @ 2 mls/min IV Q24H BRENT Stop: 08/14/24 17:59 Insulin Aspart (Insulin Aspart Per Unit Charge) 0 units SC ACHS BRENT Stop: 09/07/24 21:53 Last Admin: 08/09/24 08:11 Dose: 3 units Levothyroxine Sodium (Levothyroxine Sodium 88 Mcg Tablet) 88 mcg PO DAILYBB BRENT Stop: 09/08/24 06:29 Last Admin: 08/09/24 05:43 Dose: 88 mcg Magnesium Oxide (Magnesium Oxide 400 Mg Tab) 400 mg PO QDL [facility] Stop: 09/08/24 11:29 Metoprolol Succinate (Metoprolol Succ 25mg Ext Rel Tab) 25 mg PO QPM BRENT Stop: 09/07/24 21:53 Last Admin: 08/08/24 23:16 Dose: 25 mg Miscellaneous (Carbohydrates For Hypoglycemia ) 15 - 30 gm PO UD PRN PRN Reason: Hypoglycemia Protocol Stop: 09/07/24 21:53 Pantoprazole Sodium (Pantoprazole 40 Mg Tab) 40 mg PO DAILYBB BRENT Stop: 09/08/24 06:29 Last Admin: 08/09/24 05:43 Dose: 40 mg Polyethylene Glycol (Polyethylene (Miralax) 17 Gm Pack) 17 gm PO DAILY BRENT Stop: 09/08/24 08:59 Last Admin: 08/09/24 08:11 Dose: 17 gm Potassium Chloride (Potassium Chloride Crtab 20 Meq Tabcr) 20 meq PO BID BRENT Stop: 09/07/24 21:53 Last Admin: 08/09/24 07:51 Dose: 20 meq Senna/Docusate Sodium (Docusate Sodium/Senna 50/8.6mg Tab) 3 tab PO BID BRENT Stop: 09/07/24 21:53 Last Admin: 08/09/24 07:50 Dose: 3 tab Spironolactone (Spironolactone 12.5 Mg Tab) 12.5 mg PO QAM [facility] Stop: 09/08/24 08:59 Last Admin: 08/09/24 07:51 Dose: 12.5 mg Vibegron (Vibegron 75 Mg Tab) 75 mg PO DAILY BRENT Stop: 09/08/24 08:59 Last Admin: 08/09/24 07:51 Dose: 75 mg Vitamin D (Cholecalciferol 25 Mcg (1000 Units) Tab) 25 mcg PO QAM BRENT Stop: 09/08/24 08:59 Last Admin: 08/09/24 07:51 Dose: 25 mcg (1) UTI (urinary tract infection) Hematuria presence: without hematuria Urinary tract infection type: acute cystitis Qualified Code(s): N30.00 - Acute cystitis without hematuria (2) CHF (congestive heart failure) Heart failure chronicity: unspecified Heart failure type: unspecified Qualified Code(s): I50.9 - Heart failure, unspecified
--- NOTE | 2024-08-09 13:52 | Cardiology Consultation ---
Date of Consultation August 09, 2024 Assessment & Plan (1) Acute systolic heart failure due to valvular disease: Acute on chronic HF with mildly reduced EF, NYHA Class III (2) UTI (urinary tract infection): Plan 89-year-old female who presented to [facility] ED on 08/08 for further evaluation of abnormal outpatient urine culture results, shortness of breath, lower extremity edema, and generalized weakness. Previously seen by valve clinic (10/22/23) for evaluation of severe . Deemed not a candidate for surgical intervention due to extremely limited functional capacity. Multiple admission in the past few months. Recent admission (06/09-06/15) for acute decompensated CHF secondary to severe aortic stenosis. Recent ECHO (05/2024) showed LVEF 45-50%, moderate LVH, and severe calcific . Discharged on torsemide 80 mg twice daily. Referred by PCP to [facility] for further evaluation. Outpatient urine culture results positive for ESBL E. coli a couple of days prior to admission. Worsening shortness of breath and weakness. Torsemide increased from 80 mg to 100 mg twice daily with no improvement. ED work-up showed BNP elevated (615 PG/mL). CXR showed mild pulmonary edema. Started on ertapenem for UTI. -Appear hypervolemic upon examination today -Heart rate and blood pressure stable -Kidney function stable on labs today -K 3.8 and replaced -Doing well on IV diuresis with -1.5 net output so far today -Continue to diuresis on Lasix 40 mg twice daily. May adjust depending on response to diuretics, fluid status, and kidney function. -Continue toPROL XL 25 mg daily -Continue spironolactone 12.5 mg daily -Record daily weights -Maintain strict I&Os -Continue to monitor and replace electrolytes as needed (recommend goal K > 4.0; Mg > 2.0) -Maintain 2 gm sodium restriction -Encourage patient to elevate lower extremities throughout the day -Apply compression stockings or MARIO wraps first thing in the morning and remove at night Supervising Physician Co-Signing Physician Notes I have personally performed a history and physical examination on the patient. I have reviewed the advance practitioner's documentation, and I agree with, and take responsibility for the plan of care. 89-year-old female with history of severe aortic valve stenosis and mild left ventricular systolic dysfunction presented to the emergency department due to urinary tract infection. Mildly hypervolemic on exam. Patient reporting ineffective oral diuretics in the outpatient setting. She has diuresed more than 1.5 L with IV furosemide. Feeling somewhat better. Will continue IV fu rosemide for additional 24 hours. Monitor fluid balance, daily weight, GFR, and electrolytes. Patient evaluated by the valve clinic and deemed 'not a candidate' for TAVR or SAVR. Conservative medical management recommended at this time. Cardiology will continue to follow during hospitalization. Abilio Qureshi DO, [facility] History of Present Illness Reason for Consultation: Acute on chronic CHF, Requesting Physician: Armando Cope MD Attending Physician: Tiffany Snell MD History of Present Illness 89-year-old female with PMHx significant for chronic systolic and diastolic CHF, severe , status post biventricular pacemaker, HTN, mild nonobstructive CAD (CATH 2019), chronic lymphedema, type 2 diabetes mellitus, CKD stage III, hypothyroidism, and history of recurrent ESBL UTI who presented to ED on 08/08/24 for evaluation of abnormal outpatient urine culture results, shortness of breath, and generalized weakness. Multiple admission in the past few months with most recent (06/19-06/21/24) for constipation. She was also recently admitted (06/09-06/15) for acute decompensated CHF secondary to severe aortic stenosis. Previously seen by valve clinic (10/22/23) for evaluation of severe . She was deemed not a candidate for percutaneous or surgical therapies due to extremely limited functional capacity. Diuresed on IV diuretics and discharged on torsemide 80 mg twice daily. Per chart review, outpatient urine culture results positive for ESBL E. coli a couple of days prior to admission. She also had worsening shortness of breath and weakness. Torsemide increased from 80 mg to 100 mg twice daily with no improvement. Referred by PCP to [facility] for further evaluation. Seen today and resting comfortably in chair. She reports shortness of breath and lower extremity edema that fluctuate off and on at home. However, she noticed worsening dyspnea on exertion prior to admission. She also notes recent weight gain and intermittent nausea. Denies chest discomfort, palpitations, orthopnea, PND, lightheadedness, dizziness, or syncope. Activity limited by generalized weakness. She has 17/03 home care. Compliant with medications and diet restrict ions. Denies recent illness/infections. Denies abnormal bleeding or bruising. Chart, medications, and telemetry over the past 24 hours reviewed. Allergies Allergy/AdvReac Type Severity Reaction Status Date / Time aspirin Allergy Intermediate Hives, Verified 07/04/24 21:25 shortness of breath ibuprofen Allergy Intermediate Rash, hives Verified 07/04/24 21:25 Penicillins Allergy Intermediate Rash, hives Verified 07/04/24 21:25 adhesive Allergy Mild Reddened Verified 07/04/24 21:25 and sore skin morphine AdvReac Severe BLACKED OUT Verified 07/04/24 21:25 ciprofloxacin AdvReac Intermediate DIZZINESS/H Verified 07/04/24 21:25 OARSE/DISOR IENTED sulfamethoxazole AdvReac Intermediate NAUSEA/VOMI Verified 07/04/24 21:25 [From Bactrim] TING/DIZZIN ESS trimethoprim [From Bactrim] AdvReac Intermediate NAUSEA/VOMI Verified 07/04/24 21:25 TING/DIZZIN ESS prednisone AdvReac Mild CONFUSION/BLURRED Verified 07/04/24 21:25 VISION/WEAKNESS Home Medications Medication Instructions Recorded Confirmed Type cholecalciferol (vitamin D3) 25 1,000 unit PO QAM #30 caps 07/08/24 08/08/24 Rx mcg (1,000 unit) capsule colchicine 0.6 mg tablet 0.6 mg PO BID PRN gout attacks #10 07/08/24 08/08/24 Rx tabs conjugated estrogens 0.625 mg/gram 1 applic vaginal HS #30 grams 07/08/24 08/08/24 Rx vaginal cream (Premarin) cyanocobalamin (vitamin B-12) 1,000 mcg PO QAM #30 tabs 07/08/24 08/08/24 Rx 1,000 mcg tablet (Vitamin B-12) diclofenac sodium 1 % topical gel 2 g topical TID KNEE PAIN #100 07/08/24 08/08/24 Rx grams dulaglutide 0.75 mg/0.5 mL 0.75 mg (0.5 mL) subcut WK #2 mL 07/08/24 08/08/24 Rx subcutaneous pen injector (Trulicity) levothyroxine 88 mcg tablet 88 mcg PO DAILYBB #30 tabs 07/08/24 08/08/24 Rx meclizine 25 mg tablet 25 mg PO TID PRN Dizziness #10 tabs 07/08/24 08/08/24 Rx metoprolol succinate 25 mg 25 mg PO QPM #30 tabs 07/08/24 08/08/24 Rx tablet,extended release 24 hr mirabegron 25 mg tablet,extended 25 mg PO QAM 30 days #30 tabs 07/08/24 08/08/24 Rx release 24 hr (Myrbetriq) omeprazole 20 mg capsule,delayed 20 mg PO DAILYBB #30 caps 07/08/24 08/08/24 Rx release ondansetron HCl 4 mg tablet 4 mg PO Q6H PRN NAUSEA/VOMITING 07/08/24 08/08/24 Rx #10 tabs potassium chloride 20 mEq 20 meq PO BID #60 tabs 07/08/24 08/08/24 Rx tablet,extended release(part/cryst) spironolactone 25 mg tablet 12.5 mg (1/2 x 25 mg) PO QAM #30 07/08/24 08/08/24 Rx (Aldactone) tabs benzonatate 100 mg capsule 100 mg PO TID PRN Cough 08/08/24 08/08/24 History bisacodyl 5 mg tablet,delayed 10 mg PO BID PRN no BM within 24 08/08/24 08/08/24 History release (Dulcolax (bisacodyl)) hours d-mannose 500 mg capsule 1,000 mg PO BID 08/08/24 08/08/24 History glucosamine sulf dipot 1 cap PO BID 08/08/24 08/08/24 History chlr,msm,chond 550 mg-C 30 mg-vandana 1 mg capsule (Glucosamine Chondroitin) magnesium oxide 400 mg (241.3 mg 400 mg PO QDL 08/08/24 08/08/24 History magnesium) tablet nitrofurantoin 100 mg PO HS 08/08/24 08/08/24 History monohydrate/macrocrystals 100 mg capsule (Macrobid) polyethylene glycol 3350 17 17 g PO QAM 08/08/24 08/08/24 History gram/dose oral powder (Miralax) sennosides 8.6 mg-docusate sodium 3 tab-cap PO BID 08/08/24 08/08/24 History 50 mg tablet (Stool Softener-Laxative) torsemide 100 mg tablet 100 mg PO BID 08/08/24 08/08/24 History Patient History Medical History Dizziness Lactic acidemia Acute UTI Hypoxia Pneumonia Surgical History History of hysterectomy Hx of cholecystectomy Family History Other Diabetes Heart disease Hypertension Social History Smoking Status: Never smoker Second Hand Exposure: No; Do You Dip or Chew Tobacco: No; Tobacco Cessation Education Requested by Patient: No Hx Alcohol Use: No Hx Substance Use: No Preferred Language: Welsh Communication Ability: Effective Balance Staff Staker Required: No Beliefs That Will Affect Care: None marital status: / Current Living Situation: Alone Current Living Situation Comment: caregivers current occupational status: retired How many Children do You have: 1 Other Information That Helps Us Care for You: No Feels Safe at Home: Yes Safety Concerns: Feels Safe At This Time Assistive Devices: Glasses, Oxygen - at Night and Walker Review of Systems Review of Systems: See HPI for pertinent positives. All others negative other than those noted in the HPI. CONSTITUTIONAL: +change in weight, weakness. No fatigue, No fevers, No sweats or chills. HEENT: No visual changes, No epistaxis, No bleeding gums, No dysphagia, PULMONARY: +shortness of breath, recent change in breathing. No cough, sputum, or hemoptysis, No wheezing. CARDIOVASCULAR: +dyspnea on exertion, edema. No chest pain, No palpitations, No syncope, No claudication, No calf pain. GASTROINTESTINAL: +nausea. No change in appetite, No abdominal pain, No change in bowel habits, No significant heartburn, No vomiting, No diarrhea, No constipation, No blood in stools or black tarry stools, No dysphagia. HEMATOLOGIC: No abnormal bleeding and No bruising. NEUROLOGICAL: No falls, No dizziness, No lightheadedness, Normal balance, No headaches, and No weakness. PSYCH: No sleep disturbances, No mood changes. Physical Exam Physical Exam: Vital signs within normal limits as above. General: Well developed and nourished. No acute distress. A+Ox3. HEENT: Normocephalic. Atraumatic. EOMI. Conjunctiva and sclera clear. NECK: Trachea midline. No thyromegaly. No carotid bruits. No JVD. Carotid upstrokes are brisk. Heart: RRR. S1 noted. Grade III/ systolic murmur auscultated along left sternal border. No rubs or gallops. PMI non displaced. Lungs: No acute respiratory distress. Coarse crackles auscultated along bilateral posterior lower lobes. No wheezes.No rhonchi. Abdomen: Obese. Normal bowel sounds. Soft. Nontender. No abdominal bruits. Extremities: Normal capillary refill. No edema. No clubbing or cyanosis. Skin: Warm and dry. NEURO: No focal deficits. PSYCH: Appropriate affect and insight. Results & Data Vital Signs (Past 12 Hours) Vital Signs Temp Pulse Resp BP Pulse Ox O2 Del Method 08/09/24 05:41 36.6 C 64 16 112/64 94 Room Air Laboratory Results Cardiac Enzymes 08/08/24 Range/Units 18:00 AST 12 L (13-39) U/L Troponin I High Sens 18.8 H (0-14) pg/ml B-Natriuretic Peptide 615 H (0-100) pg/ml Coagulation 08/08/24 Range/Units 18:00 B-Natriuretic Peptide 615 H (0-100) pg/ml CBC 08/08/24 08/09/24 Range/Units 18:00 08:55 WBC 7.40 6.86 (4.8-10.8) K/ul RBC 2.55 L 2.44 L (4.20-5.40) M/uL Hgb 9.7 L 9.4 L (12.0-16.0) g/dl Hct 29.6 L 28.4 L (37.0-47.0) % Plt Count 368 371 (130-400) K/uL Neut # (Auto) 3.58 3.89 (1.40-6.50) K/uL Lymph # (Auto) 2.72 2.01 (1.20-3.40) K/uL Trimble # (Auto) 0.85 H 0.75 H (0.11-0.59) K/uL Eos # (Auto) 0.17 0.13 (0.00-0.50) K/uL Baso # (Auto) 0.06 0.05 (0.00-0.20) K/uL Comprehensive Metabolic Panel 08/08/24 08/09/24 Range/Units 18:00 08:55 Sodium 138 139 (136-145) mmol/L Potassium 3.7 3.8 (3.5-5.1) mmol/L Chloride 100 102 (98-107) mmol/L Carbon Dioxide 31 29 (21-32) mmol/L BUN 21 20 (6-23) mg/dl Creatinine 0.88 0.95 (0.6-1.2) mg/dl Glucose 153 H 191 H (70-99(Fasting)) mg/dl Calcium 9.3 9.3 (8.6-10.3) mg/dl AST 12 L (13-39) U/L ALT 8 (7-52) U/L Alkaline Phosphatase 77 (34-104) U/L Total Protein 7.6 (6.0-8.3) gm/dl Albumin 4.1 (3.4-5.0) gm/dl Intake and Output 08/08/24 08/09/24 08/09/24 22:59 06:59 14:59 Intake Total 60 / 60 Output Total 1600 / 1600 Balance -1540 / -1540 Intake: Oral 60 / 60 Output: Urine 1600 / 1600 Other: Weight 104.5 kg Weight Measurement Method [facility] Diagnostic Findings Reviewed EKG from 08/08/24 V-Paced Biventricular pacemaker detected 69 bpm QTc 540 Reviewed ECHO from 06/10/24 The study was technically adequate. Compared to study dated 03/22/23, left ventricular systolic function has declined. Left ventricular systolic function is mildly reduced. LVEF = 45-50% Moderate concentric left ventricular hypertrophy Base and mid inferior wall is hypokinetic Base posterior wall is hypokinetic Severe calcific aortic valve stenosis Mild aortic regurgitation Mild mitral regurgitation Recent Device Check from 05/28/24 Normal Device Function Events or Alerts: 7 Battery: 2.9V, 1.58 yrs AT/AF [place]: <0.1% V-Paced: 98.1% A-Paced: 14.41% Chest X-Ray 08/08/24 17:23 EXAM: XR chest 1V portable CLINICAL HISTORY: HX OF CHF CHEST PAIN SRM/LDS TECHNIQUE: An X-ray image of the chest is obtained in AP projection. COMPARISON: CR 07/04/2024 FINDINGS: Pulmonary Parenchyma: Bilateral increased bronchovascular markings. No evident consolidation seen. No pleural effusion. Heart and Mediastinum: Increased cardiothoracic ratio due to cardiomegaly. Presence of a dual chamber pacemaker. Enlarged hilar region interpreted as congestive changes. Bony Thorax: Bony thorax appears intact without fractures or deformities. Soft tissues: Cardiac monitoring electrodes. IMPRESSION: 1. Cardiomegaly and bilateral increased bronchovascular markings could correspond with congestive changes. 2. Interval worsening. Correlate clinically. Follow-up recommended. Electronically signed by Teresa Robert 08-08-2024 6:38 PM
[2024-08-09] MEDS: MAGNESIUM OXIDE 400 MG TAB PO SCH (14:38)
[2024-08-09] MEDS: ERTAPENEM 1000MG 1,000 MG/10 ML SYR IV SCH (17:05)
[2024-08-09] MEDS: NITROGLYCERIN SL 0.4 MG/TAB TAB SL STA (22:07)
[2024-08-09] MEDS: ACETAMINOPHEN 325 MG TAB PO STA (22:08)
[2024-08-09] MEDS: ALBUMIN 25% 12.5 GM/50 ML VIAL IV ONE (22:09)
[2024-08-09] MEDS ORDERED: traMADol HCL 50 MG TABLET PO PRN (22:32)
[2024-08-09 23:43] LABS: Partial Thromboplastin Ratio 1.2; Partial Thromboplastin Time 33 Seconds (21-31)
[2024-08-10 02:43] LABS: Basophils # (auto) 0.05 K/uL (0.00-0.20); Basophils % (auto) 0.8 %; Eosinophils # (auto) 0.18 K/uL (0.00-0.50); Eosinophils % (auto) 2.7 %; Hematocrit (blood only) 24.7 % (37.0-47.0); Hemoglobin 8.2 g/dl (12.0-16.0); Immature Granulocytes # (auto) 0.02 K/uL (0.01-0.20); Immature Granulocytes % (auto) 0.3 %; Lymphocytes % (auto) 44.2 %; Mean Corpuscular Hemoglobin 38.3 pg (25.0-34.0); Mean Corpuscular Hgb Conc 33.2 g/dL (32.0-36.0); Mean Corpuscular Volume 115.4 fL (80.0-100.0); Mean Platelet Volume 9.8 fL (9.4-12.4); Monocytes # (auto) 0.78 K/uL (0.11-0.59); Monocytes % (auto) 11.9 %; Neutrophils # (auto) 2.63 K/uL (1.40-6.50); Neutrophils % (auto) 40.1 %; Nucleated RBC # (auto) 0.02 K/uL (0.00-0.12); Nucleated RBC % (auto) 0.3 %; Platelet Count 326 K/uL (130-400); RDW Coefficient of Variation 14.2 % (11.5-14.5); RDW Standard Deviation 59.5 fL (36.4-46.3); Red Blood Count 2.14 M/uL (4.20-5.40); White Blood Count 6.56 K/ul (4.8-10.8)
[2024-08-10 02:51] LABS: Calcium 9.3 mg/dl (8.6-10.3)
[2024-08-10 02:56] LABS: BUN Creatinine Ratio 19.8 (10-20); Creatinine Clr Calc Pharmacy 42.4 ml/min
[2024-08-10 03:09] LABS: Partial Thromboplastin Ratio 1.1; Partial Thromboplastin Time 30 Seconds (21-31)
[2024-08-10 03:12] LABS: Troponin I High Sensitivity 21.9 pg/ml (0-14)
[2024-08-10 03:22] LABS: Macrocytosis Present; Polychromasia 1+
--- NOTE | 2024-08-10 07:12 | Communication Note ---
Date of Service: August 10, 2024 Overnight developments Patient complained of transient chest tightness which he attributed to heat in the room. EKG as per my interpretation rate 80, paced rhythm Troponin 20.9 AP Chest pain with troponin elevation History of CAD Follow troponin N.p.o., notify cardiology if with progression
--- NOTE | 2024-08-10 09:15 | Cardiology Progress Note ---
Date of Service August 10, 2024 Assessment & Plan (1) Acute systolic heart failure due to valvular disease: Plan: Acute on chronic HF with mildly reduced EF, NYHA Class III (2) UTI (urinary tract infection): Plan 89-year-old female who presented to [facility] ED on 08/08 for further evaluation of abnormal outpatient urine culture results, shortness of breath, lower extremity edema, and generalized weakness. Previously seen by valve clinic (10/22/23) for evaluation of severe . Deemed not a candidate for surgical intervention due to extremely limited functional capacity. Multiple admission in the past few months with recent admission (06/09-06/15) for acute decompensated CHF secondary to severe aortic stenosis. Recent ECHO (05/2024) showed LVEF 45-50%, moderate LVH, and severe calcific . Discharged on torsemide 80 mg twice daily. Outpatient urine culture results positive for ESBL E. coli a couple of days prior to admission. Also with worsening shortness of breath and weakness. Torsemide increased from 80 mg to 100 mg twice daily with no improvement. Referred by PCP to [facility] for further evaluation. ED work-up showed BNP elevated (615 PG/mL). CXR showed mild pulmonary edema. Started on ertapenem for UTI On 08/10, episode of intermittent non-exertional, non-radiating chest tightness. Lasted a few minutes and resolved on its own. EKG with no acute ischemic changes. Troponins minimally elevated and trended until flat (20.9-21.9-21.1). -Etiology unclear for episode of atypical chest pain, likely secondary to acute on chronic CHF due to severe valvular disease -Still appears mildly hypervolemic upon examination today -Heart rate and blood pressure stable -Kidney function and electrolytes stable on AM labs -Total cumulative net output 1.69 L so far on IV diuresis -Recommend transitioning to PO torsemide 80 mg twice daily upon discharge home -Continue toPROL XL 25 mg daily -Continue spironolactone 12.5 mg daily -Recommend outpatient cardiology follow-up to discuss conservative medical management. -Previously evaluated by valve clinic and deemed 'not a candidate' for surgical intervention. May consider palliative care referral in the future. Admission and Anticipated Discharge Date Admission Date: August 08, 2024 Supervising Physician Co-Signing Physician Notes I have personally performed a history and physical examination on the patient. I have reviewed the advance practitioner's documentation, and I agree with, and take responsibility for the plan of care. 89-year-old female with history of severe aortic valve stenosis and mild left ventricular systolic dysfunction presented to the emergency department due to urinary tract infection. Volume status improved with IV diuresis. Recommend transition from IV furosemide to oral torsemide 80 mg twice daily upon discharge. Patient evaluated by the valve clinic and deemed 'not a candidate' for TAVR or SAVR. Conservative medical management recommended at this time. Outpatient cardiology follow-up in 1 to 2 weeks. Abilio Qureshi DO, [facility] Subjective 89-year-old female with PMHx significant for chronic systolic and diastolic CHF, severe , status post biventricular pacemaker, HTN, mild nonobstructive CAD (CATH 2019), chronic lymphedema, type 2 diabetes mellitus, CKD stage III, hypothyroidism, and history of recurrent ESBL UTI who presented to ED on 08/08/24 for evaluation of abnormal outpatient urine culture results, shortness of breath, and generalized weakness. Seen today and resting comfortably in bed on room air. Episode of chest tightness without radiation while laying in bed and trying to go to sleep yesterday evening. Pain rated at 5 out of 10. Lasted a few minutes then resolve on its own. She attributed chest discomfort to the room being hot. Denies associated nausea, diaphoresis, or shortness of breath. EKG showed V-Paced rhythm with rates in 80s. Troponin minimally elevated and trended until flat (20.9-21.9-21.1). She otherwise feels about the same as yesterday. Denies recurrent chest discomfort this morning. She notes ongoing shortness of breath, weakness, and lower extremity edema. Lightheadedness and dizziness with positional changes. She also notes occasional intermittent palpitations. Denies orthopnea, PND, syncope, or worsening edema. Chart and medications reviewed. Review of Systems Review of Systems: See HPI for pertinent positives. All others negative other than those noted in the HPI. CONSTITUTIONAL: +weakness. No recent weight change, No fatigue, No fevers, No sweats or chills. HEENT: No visual changes, No epistaxis, No bleeding gums, No dysphagia, PULMONARY: +shortness of breath. No cough, sputum, or hemoptysis, No wheezing, recent change in breathing. CARDIOVASCULAR: +dyspnea on exertion, edema, palpitations. No chest pain, No syncope, No claudication, No calf pain. GASTROINTESTINAL: +nausea. No change in appetite, No abdominal pain, No change in bowel habits, No significant heartburn, No vomiting, No diarrhea, No constipation, No blood in stools or black tarry stools, No dysphagia. HEMATOLOGIC: No abnormal bleeding and No bruising. NEUROLOGICAL: +dizziness, lightheadedness. No falls, Normal balance, No headaches. PSYCH: No sleep disturbances, No mood changes. Physical Exam Physical Exam: Vital signs within normal limits as above. General: Well developed and nourished. No acute distress. A+Ox3. HEENT: Normocephalic. Atraumatic. EOMI. Conjunctiva and sclera clear. NECK: Trachea midline. No thyromegaly. No carotid bruits. No JVD. Carotid upstrokes are brisk. Heart: RRR. S1 noted. Grade III/ systolic murmur auscultated along left sternal border. No rubs or gallops. PMI non displaced. Lungs: No acute respiratory distress. Coarse crackles auscultated on bilateral posterior lower lobes. No wheezes. No rhonchi. Abdomen: Obese. Normal bowel sounds. Soft. Nontender. No abdominal bruits. Extremities: Normal capillary refill. +2 BLE non-pitting edema. No clubbing or cyanosis. Skin: Warm and dry. NEURO: No focal deficits. PSYCH: Appropriate affect and insight. Results & Data Vital Signs (Past 12 Hours) Vital Signs Temp Pulse Resp BP Pulse Ox O2 Del Method 08/10/24 07:14 36.5 C 74 16 105/70 92 Room Air 08/10/24 05:25 108/67 08/09/24 23:03 36.6 C 76 16 107/67 91 Room Air 08/09/24 21:53 90/57 L Laboratory Results Cardiac Enzymes 08/09/24 08/10/24 08/10/24 Range/Units 22:53 02:25 05:29 Troponin I High Sens 20.9 H 21.9 H 21.1 H (0-14) pg/ml Coagulation 08/09/24 08/10/24 Range/Units 22:53 02:25 APTT 33 H 30 (21-31) Seconds CBC 08/10/24 Range/Units 02:25 WBC 6.56 (4.8-10.8) K/ul RBC 2.14 L (4.20-5.40) M/uL Hgb 8.2 L (12.0-16.0) g/dl Hct 24.7 L (37.0-47.0) % Plt Count 326 (130-400) K/uL Neut # (Auto) 2.63 (1.40-6.50) K/uL Lymph # (Auto) 2.90 (1.20-3.40) K/uL [place] # (Auto) 0.78 H (0.11-0.59) K/uL Eos # (Auto) 0.18 (0.00-0.50) K/uL Baso # (Auto) 0.05 (0.00-0.20) K/uL Comprehensive Metabolic Panel 08/10/24 Range/Units 02:25 Sodium 138 (136-145) mmol/L Potassium 4.0 (3.5-5.1) mmol/L Chloride 102 (98-107) mmol/L Carbon Dioxide 29 (21-32) mmol/L BUN 21 (6-23) mg/dl Creatinine 1.06 (0.6-1.2) mg/dl Glucose 136 H (70-99(Fasting)) mg/dl Calcium 9.3 (8.6-10.3) mg/dl Intake and Output 08/09/24 08/10/24 08/10/24 22:59 06:59 14:59 Intake Total 300 / 350 50 / 350 Output Total 500 / 500 Balance 300 / 350 50 / 350 -500 / -500 Intake: IV 50 / 50 Albumin 25% 12.5 gm In 50 ml @ 50 / 50 50 mls/hr IV ONE ONE Rx#: [id number] Oral 300 / 300 Output: Urine 500 / 500 Other: Weight 104.5 kg Weight Measurement Method Standing Scale Diagnostic Findings Reviewed EKG from 08/08/24 V-Paced Biventricular pacemaker detected 69 bpm QTc 540 Reviewed ECHO from 06/10/24 The study was technically adequate. Compared to study dated 03/22/23, left ventricular systolic function has declined. Left ventricular systolic function is mildly reduced. LVEF = 45-50% Moderate concentric left ventricular hypertrophy Base and mid inferior wall is hypokinetic Base posterior wall is hypokinetic Severe calcific aortic valve stenosis Mild aortic regurgitation Mild mitral regurgitation Recent Device Check from 05/28/24 Normal Device Function Events or Alerts: 7 Battery: 2.9V, 1.58 yrs AT/AF [place]: <0.1% V-Paced: 98.1% A-Paced: 14.41% Chest X-Ray 08/08/24 17:23 EXAM: XR chest 1V portable CLINICAL HISTORY: HX OF CHF CHEST PAIN SRM/LDS TECHNIQUE: An X-ray image of the chest is obtained in AP projection. COMPARISON: CR 07/04/2024 FINDINGS: Pulmonary Parenchyma: Bilateral increased bronchovascular markings. No evident consolidation seen. No pleural effusion. Heart and Mediastinum: Increased cardiothoracic ratio due to cardiomegaly. Presence of a dual chamber pacemaker. Enlarged hilar region interpreted as congestive changes. Bony Thorax: Bony thorax appears intact without fractures or deformities. Soft tissues: Cardiac monitoring electrodes. IMPRESSION: 1. Cardiomegaly and bilateral increased bronchovascular markings could correspond with congestive changes. 2. Interval worsening. Correlate clinically. Follow-up recommended. Electronically signed by Teresa Robert 08-08-2024 6:38 PM
[2024-08-10] MEDS ORDERED: SEPTRA DS HOME PACK PO ONE (12:27)
--- NOTE | 2024-08-10 12:34 | Hospitalist Progress Note ---
Date of Service August 10, 2024 Assessment & Plan (1) UTI (urinary tract infection): Plan: Discontinue imipenem, transition to Bactrim double strength twice daily for total of 3 days. (2) CHF (congestive heart failure): Plan: Clinically stable, transition to torsemide 100 mg twice daily with potentially adjusting treatment as outpatient.Continue with Aldactone 12.5 mg daily, Toprol XL 25 mg. Daily. Last echocardiogram on 06/10/2024 showed EF of 45 to 50% with moderate concentric LVH. Clinically doing better. (3) Hypothyroidism (acquired): Plan: Continue with home dose of Synthroid 88 mcg daily. (4) Diabetes mellitus type 2, controlled: Plan: Blood sugars relatively stable, while inpatient May use sliding scale coverage of insulin, upon discharge may transition back to home regimen of Trulicity. Plan For discharge home tomorrow morning. Admission and Anticipated Discharge Date Admission Date: August 08, 2024 Subjective Patient is a very pleasant very pleasant 89-year-old female with history of diabetes mellitus type 2, CKD stage III, hypothyroidism, hyperlipidemia and chronic combined systolic and diastolic CHF, severe aortic stenosis status post biventricular pacemaker who apparently has had recurrent UTI who was admitted after she was found to have an abnormal urinalysis, patient apparently had ESBL E. coli in urine culture on 08/08, the result of culture showed mixed sensitivity and resistance, discussed with ID over phone and the we decided to settle for 3 days of Bactrim. Reached test and research reactor operator in regard to the dosing for diuretic, even though they recommended patient to go on torsemide 80 mg twice daily, but I spoke with patient's daughter and I was told about the issues the patient has controlling the intake and output even with 100 mg of torsemide twice daily and the fact that recently was needed to be on metolazone in addition, I decided to keep her on 100 and a gram of torsemide twice daily. Patient's daughter will reach home care and subsequently patient's test and research reactor operator is to regulate the dose of diuretic at home. Patient's daughter requested patient to remain inpatient until tomorrow as she has doctors appointment and wanted to come personally to get her. Patient was seen and examined today, otherwise she is doing well, we will proceed with discharging her tomorrow. Physical Exam Physical Exam: VITALS: Reviewed. WEIGHT/BMI reviewed. CV: RRR, no m/r/g. LUNGS: CTAB, no w/r/c. ABD: Soft, NT/ND, NBS, no masses or organomegaly. : N/A EXT: Lower extremities are puffy not significantly swollen Results & Data Results & Data Vital Signs (Past 12 Hours) Vital Signs Temp Pulse Resp BP Pulse Ox O2 Del Method 08/10/24 09:00 Room Air 08/10/24 07:14 36.5 C 74 16 105/70 92 Room Air 08/10/24 05:25 108/67 Laboratory Results Laboratory Results - last 24 hr 08/09/24 08/09/24 08/09/24 16:34 20:27 22:53 WBC RBC Hgb Hct MCV MCH MCHC RDW Std Deviation RDW Coeff of Jon Plt Count MPV Immature Gran % (Auto) Neut % (Auto) Lymph % (Auto) [place] % (Auto) Eos % (Auto) Baso % (Auto) Neut # (Auto) Lymph # (Auto) [place] # (Auto) Eos # (Auto) Baso # (Auto) Immature Gran # (Auto) Absolute Nucleated RBC Nucleated RBC % (auto) Polychromasia Macrocytosis APTT 33 H PTT Ratio 1.2 Sodium Potassium Chloride Carbon Dioxide Anion Gap BUN Creatinine Est Cr Clr Drug Dosing eGFR BUN/Creatinine Ratio Glucose POC Glucose 177 H 166 H Lactate 1.0 Calcium Troponin I High Sens 20.9 H 08/10/24 08/10/24 08/10/24 02:25 05:29 07:46 WBC 6.56 RBC 2.14 L Hgb 8.2 L Hct 24.7 L MCV 115.4 H MCH 38.3 H MCHC 33.2 RDW Std Deviation 59.5 H RDW Coeff of Jon 14.2 Plt Count 326 MPV 9.8 Immature Gran % (Auto) 0.3 Neut % (Auto) 40.1 Lymph % (Auto) 44.2 [place] % (Auto) 11.9 Eos % (Auto) 2.7 Baso % (Auto) 0.8 Neut # (Auto) 2.63 Lymph # (Auto) 2.90 [place] # (Auto) 0.78 H Eos # (Auto) 0.18 Baso # (Auto) 0.05 Immature Gran # (Auto) 0.02 Absolute Nucleated RBC 0.02 Nucleated RBC % (auto) 0.3 Polychromasia 1+ Macrocytosis Present APTT 30 PTT Ratio 1.1 Sodium 138 Potassium 4.0 Chloride 102 Carbon Dioxide 29 Anion Gap 7 BUN 21 Creatinine 1.06 Est Cr Clr Drug Dosing 42.4 eGFR 50.21 BUN/Creatinine Ratio 19.8 Glucose 136 H POC Glucose 150 H Lactate Calcium 9.3 Troponin I High Sens 21.9 H 21.1 H 08/10/24 11:32 WBC RBC Hgb Hct MCV MCH MCHC RDW Std Deviation RDW Coeff of Jon Plt Count MPV Immature Gran % (Auto) Neut % (Auto) Lymph % (Auto) [place] % (Auto) Eos % (Auto) Baso % (Auto) Neut # (Auto) Lymph # (Auto) [place] # (Auto) Eos # (Auto) Baso # (Auto) Immature Gran # (Auto) Absolute Nucleated RBC Nucleated RBC % (auto) Polychromasia Macrocytosis APTT PTT Ratio Sodium Potassium Chloride Carbon Dioxide Anion Gap BUN Creatinine Est Cr Clr Drug Dosing eGFR BUN/Creatinine Ratio Glucose POC Glucose 138 H Lactate Calcium Troponin I High Sens Medications Administered Current Inpatient Medications Acetaminophen (Acetaminophen 325 Mg Tab) 650 mg PO Q4H PRN PRN Reason: pain/fever Stop: 09/07/24 21:53 Bisacodyl (Bisacodyl 5 Mg Tabec) 10 mg PO BID PRN PRN Reason: no BM within 24 hours Stop: 09/07/24 21:53 Cyanocobalamin (Cyanocobalamin (B-12) 500 Mcg Tablet) 1,000 mcg PO QAM BRENT Stop: 09/08/24 08:59 Last Admin: 08/10/24 08:05 Dose: 1,000 mcg Dextrose (Dextrose 50% 50 Ml Syringe) 25 - 50 ml IV UD PRN; Protocol PRN Reason: Hypoglycemia Protocol Stop: 09/07/24 21:53 Glucagon (Glucagon For Inj 1 Mg Vial) 1 mg SQ UD PRN; Protocol PRN Reason: Hypoglycemia Protocol Stop: 09/07/24 21:53 Glucose (Glucose 40% Gel 15 Gm Tube) 15 - 30 gm PO UD PRN; Protocol PRN Reason: Hypoglycemia Protocol Stop: 09/07/24 21:53 Glucose (Glucose 10 Tab/Tube) 4 - 8 tab PO UD PRN; Protocol PRN Reason: Hypoglycemia Protocol Stop: 09/07/24 21:53 Heparin Sodium (Porcine) (Heparin Sod 5,000 Unit/0.5 Ml Vial) 5,000 units SQ Q8 BRENT Stop: 09/07/24 21:59 Last Admin: 08/10/24 05:21 Dose: 5,000 units Insulin Aspart (Insulin Aspart Per Unit Charge) 0 units SC ACHS BRENT Stop: 09/07/24 21:53 Last Admin: 08/10/24 12:13 Dose: 2 units Levothyroxine Sodium (Levothyroxine Sodium 88 Mcg Tablet) 88 mcg PO DAILYBB BRENT Stop: 09/08/24 06:29 Last Admin: 08/10/24 05:21 Dose: 88 mcg Magnesium Oxide (Magnesium Oxide 400 Mg Tab) 400 mg PO QDL BRENT Stop: 09/08/24 11:29 Last Admin: 08/10/24 12:13 Dose: 400 mg Metoprolol Succinate (Metoprolol Succ 25mg Ext Rel Tab) 25 mg PO QPM BRENT Stop: 09/07/24 21:53 Last Admin: 08/09/24 20:18 Dose: 25 mg Miscellaneous (Carbohydrates For Hypoglycemia ) 15 - 30 gm PO UD PRN PRN Reason: Hypoglycemia Protocol Stop: 09/07/24 21:53 Pantoprazole Sodium (Pantoprazole 40 Mg Tab) 40 mg PO DAILYBB [facility] Stop: 09/08/24 06:29 Last Admin: 08/10/24 05:21 Dose: 40 mg Polyethylene Glycol (Polyethylene (Miralax) 17 Gm Pack) 17 gm PO DAILY BRENT Stop: 09/08/24 08:59 Last Admin: 08/10/24 08:07 Dose: Not Given Potassium Chloride (Potassium Chloride Crtab 20 Meq Tabcr) 20 meq PO BID BRENT Stop: 09/07/24 21:53 Last Admin: 08/10/24 08:15 Dose: 20 meq Senna/Docusate Sodium (Docusate Sodium/Senna 50/8.6mg Tab) 3 tab PO BID BRENT Stop: 09/07/24 21:53 Last Admin: 08/10/24 08:07 Dose: Not Given Spironolactone (Spironolactone 12.5 Mg Tab) 12.5 mg PO QAM BRENT Stop: 09/08/24 08:59 Last Admin: 08/10/24 08:06 Dose: 12.5 mg Torsemide (Torsemide 100 Mg Tab) 100 mg PO BID BRENT Stop: 09/09/24 20:59 Tramadol HCl (Tramadol Hcl 50 Mg Tablet) 25 - 50 mg PO Q4H PRN PRN Reason: Pain Stop: 09/08/24 22:31 Trimethoprim/Sulfamethoxazole (Septra Ds Home Pack) 1 each PO Q12 ONE Stop: 08/10/24 12:28 Vibegron (Vibegron 75 Mg Tab) 75 mg PO DAILY BRENT Stop: 09/08/24 08:59 Last Admin: 08/10/24 08:05 Dose: 75 mg Vitamin D (Cholecalciferol 25 Mcg (1000 Units) Tab) 25 mcg PO QAM BRENT Stop: 09/08/24 08:59 Last Admin: 08/10/24 08:05 Dose: 25 mcg (1) UTI (urinary tract infection) Hematuria presence: without hematuria Urinary tract infection type: acute cystitis Qualified Code(s): N30.00 - Acute cystitis without hematuria (2) CHF (congestive heart failure) Heart failure chronicity: unspecified Heart failure type: unspecified Qualified Code(s): I50.9 - Heart failure, unspecified
[2024-08-10] MEDS: SULFAMETHOXAZOLE/TRIMETHOPRIM DS 800/160MG TAB PO SCH (14:13)
[2024-08-10 19:55] VITALS: O2SAT 94
[2024-08-10] MEDS: TORSEMIDE 100 MG TAB PO SCH (21:11)
--- NOTE | 2024-08-11 06:22 | Electrocardiogram Report ---
Test Reason : Blood Pressure : */* mmHG Vent. Rate : 69 BPM Atrial Rate : 69 BPM P-R Int : 160 ms QRS Dur : 168 ms QT Int : 504 ms P-R-T Axes : -3 -67 112 degrees QTcB Int : 540 ms Atrial-sensed ventricular-paced rhythm Biventricular pacemaker detected Abnormal ECG When compared with ECG of 04-Jul-2024 19:12, Vent. rate has decreased by 4 bpm Confirmed by Jameson Coronado ([id number]) on 08/11/2024 6:22:13 AM Referred By: REFERRED SELF Confirmed By: Jameson Coronado
[2024-08-11 08:40] VITALS: BP 128/72; PULSE 61; RESP 14; TEMP 98.2
--- NOTE | 2024-08-11 09:00 | Discharge Summary ---
Discharge Summary Date of Service August 11, 2024 Principal Dx & Hospital Course #1 = Principal Diagnosis (1) UTI (urinary tract infection): (2) Hypothyroidism (acquired): (3) Diabetes mellitus type 2, controlled: (4) Acute on chronic combined systolic (congestive) and diastolic (congestive) heart failure: Notes For Next Care Provider Medication Changes From Visit Bactrim double strength 1 tablet twice daily for 3 days Admission HPI Per Admitting Provider Patient is a very pleasant very pleasant 89-year-old female with history of diabetes mellitus type 2, CKD stage III, hypothyroidism, hyperlipidemia and chronic combined systolic and diastolic CHF, severe aortic stenosis status post biventricular pacemaker who apparently has had recurrent UTI who was admitted after she was found to have an abnormal urinalysis, patient apparently had ESBL E. coli in urine culture on 08/08, the result of culture showed mixed sen sitivity and resistance, discussed with ID over phone and the we decided to settle for 3 days of Bactrim. Reached manager drug safety in regard to the dosing for diuretic, even though they recommended patient to go on torsemide 80 mg twice daily, but I spoke with patient's daughter and I was told about the issues the patient has controlling the intake and output even with 100 mg of torsemide twice daily and the fact that recently was needed to be on metolazone in addition, I decided to keep her on 100 and a gram of torsemide twice daily. Patient's daughter will reach home care and subsequently patient's manager drug safety is to regulate the dose of diuretic at home. Patient was kept overnight and seen today, she remained stable, will proceed with previous plan of 3 days of Bactrim and discharging her home. Updated Medication List Medication Instructions Recorded Confirmed Type cholecalciferol (vitamin D3) 25 1,000 unit PO QAM #30 caps 07/08/24 08/08/24 Rx mcg (1,000 unit) capsule colchicine 0.6 mg tablet 0.6 mg PO BID PRN gout attacks #10 07/08/24 08/08/24 Rx tabs conjugated estrogens 0.625 mg/gram 1 applic vaginal HS #30 grams 07/08/24 08/08/24 Rx vaginal cream (Premarin) cyanocobalamin (vitamin B-12) 1,000 mcg PO QAM #30 tabs 07/08/24 08/08/24 Rx 1,000 mcg tablet (Vitamin B-12) diclofenac sodium 1 % topical gel 2 g topical TID KNEE PAIN #100 07/08/24 08/08/24 Rx grams dulaglutide 0.75 mg/0.5 mL 0.75 mg (0.5 mL) subcut WK #2 mL 07/08/24 08/08/24 Rx subcutaneous pen injector (Trulicity) levothyroxine 88 mcg tablet 88 mcg PO DAILYBB #30 tabs 07/08/24 08/08/24 Rx meclizine 25 mg tablet 25 mg PO TID PRN Dizziness #10 tabs 07/08/24 08/08/24 Rx metoprolol succinate 25 mg 25 mg PO QPM #30 tabs 07/08/24 08/08/24 Rx tablet,extended release 24 hr mirabegron 25 mg tablet,extended 25 mg PO QAM 30 days #30 tabs 07/08/24 08/08/24 Rx release 24 hr (Myrbetriq) omeprazole 20 mg capsule,delayed 20 mg PO DAILYBB #30 caps 07/08/24 08/08/24 Rx release ondansetron HCl 4 mg tablet 4 mg PO Q6H PRN NAUSEA/VOMITING 07/08/24 08/08/24 Rx #10 tabs potassium chloride 20 mEq 20 meq PO BID #60 tabs 07/08/24 08/08/24 Rx tablet,extended release(part/cryst) spironolactone 25 mg tablet 12.5 mg (1/2 x 25 mg) PO QAM #30 07/08/24 08/08/24 Rx (Aldactone) tabs benzonatate 100 mg capsule 100 mg PO TID PRN Cough 08/08/24 08/08/24 History bisacodyl 5 mg tablet,delayed 10 mg PO BID PRN no BM within 24 08/08/24 08/08/24 History release (Dulcolax (bisacodyl)) hours d-mannose 500 mg capsule 1,000 mg PO BID 08/08/24 08/08/24 History glucosamine sulf dipot 1 cap PO BID 08/08/24 08/08/24 History chlr,msm,chond 550 mg-C 30 mg-vandana 1 mg capsule (Glucosamine Chondroitin) magnesium oxide 400 mg (241.3 mg 400 mg PO QDL 08/08/24 08/08/24 History magnesium) tablet nitrofurantoin 100 mg PO HS 08/08/24 08/08/24 History monohydrate/macrocrystals 100 mg capsule (Macrobid) polyethylene glycol 3350 17 17 g PO QAM 08/08/24 08/08/24 History gram/dose oral powder (Miralax) sennosides 8.6 mg-docusate sodium 3 tab-cap PO BID 08/08/24 08/08/24 History 50 mg tablet (Stool Softener-Laxative) torsemide 100 mg tablet 100 mg PO BID 08/08/24 08/08/24 History sulfamethoxazole 800 1 tab PO BID 3 days #6 tabs 08/11/24 Rx mg-trimethoprim 160 mg tablet (Bactrim DS) Hospital Stay Data Consultations 08/08/24 19:33 ED Decision to Admit Stat 08/08/24 21:54 Consult Cardiology Routine Pending Results Patient Have Any Pending Studies at Discharge: No Discharge Instructions Given to Patient (Per Discharging Provider) No further recommendation Total Time Total Time Spent Total Time Spent (In Minutes): Less than 30 minutes
--- NOTE | 2024-08-12 05:54 | Electrocardiogram Report ---
Test Reason : Blood Pressure : */* mmHG Vent. Rate : 78 BPM Atrial Rate : 78 BPM P-R Int : 144 ms QRS Dur : 168 ms QT Int : 466 ms P-R-T Axes : 31 -72 107 degrees QTcB Int : 531 ms Atrial-sensed ventricular-paced rhythm Biventricular pacemaker detected Abnormal ECG When compared with ECG of 08-Aug-2024 18:17, Vent. rate has increased by 9 bpm Confirmed by Jameson Coronado ([id number]) on 08/12/2024 5:54:32 AM Referred By: REFERRED SELF Confirmed By: Jameson Coronado
== END 2024-08-11 10:45 | disposition home health service (06) | DRG 291 ==
LOC: ED 16:40 → 3E 20:06 → SUATTDRO 20:06 → 3E 21:26

== ENCOUNTER 2024-08-15 22:42 | Inpatient (IN) ==
--- OUTSIDE RECORDS SUMMARY | 2024-08-15 22:48 | External Medical Summary | Summary of Care ---
Author Name Unknown Organization [facility] Address [address] [place] [address] Phone [phone] Care Team Providers Care Hydroelectric Plant Maintainer Name Role Phone Verónica Benavides MD Primary Care Provide r Encounter Details Date Type Department Care Team ([facility] Contact Info) Description 08/15/2024 3:15 PM EST [facility] [address] [place] [address] [facility], Nurse [facility] [address] [place] [address] Allergies Active Allergy Reactions Criticality Noted Date Comments Adhesive Tape Medium 01/30/2022 Ibuprofen Hives 01/13/2012 Aspirin Hives,Rash 09/15/2000 Sulfamethoxazole-Trimeth oprim Nausea/vomiting,Othe r (Please comment) 10/27/2020 Dizziness Ciprofloxacin Hcl 06/16/2019 Hoarse, dizzy,disoriented Morphine 09/21/2021 Blacked out Penicillins Hives,Rash 09/15/2000 Prednisone 12/30/2017 Weakness/memory changes/blurred vision documented as of this encounter (statuses as of 08/15/2024) Medications OneTouch Verio w/Device Kit Use up [...] XL)Indications:Non -ischemic cardiomyopathy (HCC),Coronary artery disease involving [place] coronary artery of [place] heart without angina pectoris,HTN, goal below 140/90 [...] Tablet 3 08/06/20 Active OneTouch Delica Plus [id number] ns:Type 2 diabetes mellitus with hemoglobin A1c goal of less than 8.0% (HCC) Test up to two times daily or as directed by [facility] pharmacist 200 Each 3 08/06/20 Active OneTouch Verio In Vitro Strip (Glucose Blood)Indications: Type 2 diabetes mellitus with hemoglobin A1c goal of less than 8.0% (HCC),Type 2 diabetes mellitus with stage 3 chronic kidney disease, without long-term current use of insulin (HCC) TEST UP TO FOUR TIMES DAILY 400 Strip 3 08/06/20 Active documented as of this encounter (statuses as of 08/15/2024) Active Problems Problem Noted Date Diagnosed Date [...] & Plan (08/29/2021 1:27 PM EST): [facility] Triage Call: Reviewed last C&S - treated [...] & Plan (01/14/2022 1:57 PM EDT): [facility] Call: I'm not sure who Dr [...] & Plan (08/29/2021 1:21 PM EST): [facility] Triage Call: Based on what is described [...] synthroid Coronary artery disease invo lving [place] coronary artery of [place] heart without angina pectoris 07/03/2012 Overview (07/03/2012): [...] as of this encounter (statuses as of 08/15/2024) Resolved Problems Problem Noted Date Diagnosed Date [...] as of this encounter (statuses as of 08/15/2024) Immunizations Name Administration Dates Next Due COVID-19 mRNA, LNP-s, No Pre serve, 2-Dose Series ([employer] 08/29/2021,10/23/2020,10/02/2020 COVID-19, MRNA-LNP, PF, 30 M CG/0.3 mL, 12 YRS AND ABOVE, IM ([employer]) 08/04/2023 Covid-19, Mrna, Lnp-s, Pf, B ivalent, 30 Mcg, IM, 12 yrs and above ([employer] 08/02/2022 Pneumococcal Conjugate Vacc, 13 Valent [...] Sign Reading Time Taken Comments Blood Pressure 102/60 08/15/2024 2:34 PM EST Pulse 72 08/15/2024 2:34 PM EST Temperature 37.1 C (98.8 F) 08/15/2024 2 :34 PM EST Respiratory Rate 20 08/15/2024 2:34 PM EST Oxygen Saturation 91% 08/15/2024 2:3 4 PM EST Oxygen on at 3 l/min via nc Inhaled Oxygen Concentration - - Weight - - Height - - Body Mass Index - - documented in this encounter Progress Notes * Marija Londono RN - 08/15/2024 3:01 PM EST Current Concerns: Pt seen for acute visit for increased weakness + cough with yellow/green sputum Appetite decreased but drinking well +N/V + one episode of diarrhea today Had Zofran x 2 today Dtr reports pulse ox was in 70's-80's last night and this morning VS now - 98.8-86-20-102/60-91% on 3 l/min via nc Dtr reports leg edema looks pretty good today but she does have increased SOB and was having wheezing last night, which did improved with using IS Faint crackle of RLE Family reports decreased appetite, weak and shakey for past 3 days Just finished bactrim for UTI TT to consulting services manager provider with assessment CXR ordered Doxycycline ordered Pt to take 1/2 tablet of 2.5mg Metolazone Continue zofran as needed F/U with RNCM tomorrow RightFax order faxed to [facility] CXR called into [facility] Mobile Physical Exam: Physical Exam Constitutional: Appearance: She is obese. Cardiovascular: Rate and Rhythm: Normal rate and regular rhythm. Pulses: Normal pulses. Heart sounds: Normal heart sounds. Pulmonary: Breath sounds: Rales (faint crackle RLL) present. Skin: General: Skin is warm and dry. Neurological: Mental Status: She is alert and oriented to person, place, and time. Review of Systems: Review of Systems Constitutional: Positive for fatigue. Respiratory: Positive for cough (yellow/green sputum) and shortness of breath. Cardiovascular: Positive for leg swelling (at baseline). Gastrointestinal: Positive for diarrhea (1 episode today), nausea and vomiting. Genitourinary: Negative. Musculoskeletal: Positive for arthralgias and gait problem. Neurological: Positive for weakness. Psychiatric/Behavioral: Negative. Care Plan Goal Progress: Orders Placed: No orders of the defined types were placed in this encounter. Medications Given: Care Gaps: Care Gaps Care gaps closed this contact: Plan of Care (POC);Medications;Lab/radiology testing coordinated;Education;Diuretic titration protocol started (08/15/241728) Type of education: Clinical/disease (08/15/241728) Type of medication care gap: Medication optimization;Medication adherence (08/15/241728) Type of plan of care (POC) care gap: Education and review of exacerbation plan (08/15/241728) documented in this encounter Plan of Treatment Upcoming Encounters Date Type Department Care Team (Late st Contact Info) Description 08/16/2024 4:00 PM EST [facility] [address] [place] [address] Destiny Schultz RN [address] [place] [address] 08/23/2024 12:30 PM EST [facility] [place] [address] [place] [address] Destiny Schultz RN 132 [facility] [place] [address] 09/16/2024 3:00 PM EST [facility], [facility] [place] [address] Brandt Santacruz PA-C 132 [facility] [place] [address] 10/01/2024 1:00 PM EST Telemedicine Family Medicine [address] [place] [phone] Kusum Jones CRNP [address] [place] [address] [place] [address] 10/13/2024 11:30 AM EST Telemedicine Urology, [facility] 132 [facility] [place] [address] Chandler Pena MD [address] [place] [address] 11/24/2024 1:40 PM EDT Office Visit Dermatology [address] [place] [address] Sheryl Pena PA-C [address] [place] [address] [place] [address] 04/18/2025 1:20 PM EDT Telemedicine Family Medicine [address] [place] [phone] Verónica Benavides MD [address] [place] [address] [place] [address] Health Maintenance Due Date Last Done Comments [...] Additional history exists CKD PHOS USE SMARTSET 32573 05/05/202504/25, 04/30/2024, 04/02/2024, Additional history exists CKD HGB USE SMARTSET 39673 08/04/202508/04, 08/04/2024, 05/26/2024, Additional history exists Pneumococcal [...] Documents on File Type Date Recorded Patient Marker Delivery Expl anation Advance Directives and Living Will 08/10/2021 ADVANCE DIRECTIVE / LIVING WILL LIVING WILL Healthcare Agents on File Name Relationship Healthcare Agent Relationshi p Communication Josselyn Judd Adult Child Health Care Power of Attor nathalie Care Teams Hydroelectric Plant Maintainer Relationship Specialty Start Date End Date Verónica Benavides MD [address] [place] [address] [place] [phone] PCP - General Family Medicine 09/16/14 documented as of this encounter
--- OUTSIDE RECORDS SUMMARY | 2024-08-15 22:49 | External Medical Summary | Summary of Care ---
Author Name Unknown Organization [facility] Address [address] [place] [address] Phone [phone] Care Team Providers Care Dental Hygiene Instructor Name Role Phone Verónica Benavides MD Primary Care Provide r Reason for Visit * Reason Onset Date Comments [facility]: Maintenance 08/08/2024 Encounter Details Date Type Department Care Team (Late st Contact Info) Description 08/08/2024 2:00 PM EST Scheduled Telephone [facility], [facility] [address] [place] [address] [facility], Nurse [facility] [address] [place] [address] Allergies Active Allergy Reactions Criticality Noted Date Comments Adhesive Tape Medium 01/30/2022 Ibuprofen Hives 01/13/2012 Aspirin Hives,Rash 09/15/2000 Sulfamethoxazole-Trimeth oprim Nausea/vomiting,Othe r (Please comment) 10/27/2020 Dizziness Ciprofloxacin Hcl 06/16/2019 Hoarse, dizzy,disoriented Morphine 09/21/2021 Blacked out Penicillins Hives,Rash 09/15/2000 Prednisone 12/30/2017 Weakness/memory changes/blurred vision documented as of this encounter (statuses as of 08/09/2024) Medications OneTouch Verio w/Device Kit Use up [...] XL)Indications:Non -ischemic cardiomyopathy (HCC),Coronary artery disease involving [place] coronary [...] Tablet 3 08/06/20 Active OneTouch Delica Plus [id number] ns:Type 2 diabetes mellitus with hemoglobin A1c [...] as of this encounter (statuses as of 08/09/2024) Active Problems Problem Noted Date Diagnosed Date [...] Assessment & Plan (01/14/2022 1:57 PM EDT): [facility] Call: I'm not sure who Dr [...] of [place] heart without angina pectoris 07/03/2012 Overview (07/03/2012): [...] as of this encounter (statuses as of 08/09/2024) Resolved Problems Problem Noted Date Diagnosed Date [...] as of this encounter (statuses as of 08/09/2024) Immunizations Name Administration Dates Next Due COVID-19 mRNA, LNP-s, No Pre serve, 2-Dose Series ([employer]) 08/29/2021,10/23/2020,10/02/2020 COVID-19, MRNA-LNP, PF, 30 M CG/0.3 mL, 12 YRS AND ABOVE, IM ([employer]) 08/04/2023 Covid-19, Mrna, Lnp-s, Pf, B ivalent, 30 Mcg, IM, 12 yrs and above ([employer]) 08/02/2022 Influenza, Whole Virus 08/07/2000 Pneumococcal Conjugate [...] Telephone Encounter - Paris Santos LPN - 08/09/2024 12:43 PM EST Ronny Daigle. Patient admitted to [facility] 08/08/24. Thank you Sabra * Telephone Encounter - Alireza Mcleod MD [...] in agreement. She [facility] which [facility]. Culture results [...] but no answer. Message left to back [facility]. Please provide recommendations when calls back and if in agreement will send bactrim and zofran to preferred pharmacy. * Telephone Encounter - Vero Buckner RN - 08/08/2024 1:18 PM EST Please review prelim urine results Exacerbation plan notes Pt has been tx in the home with IV ertapenem for FVGE-B-Vjup-urine [facility] keeps on hand. -there are some notes [...] EST Laboratory Lab Mobile Phlebotomy [facility] [address] [facility] [place] [address] [facility], [facility] Mobile Home Draw [address] [facility] [place] [address] 08/23/2024 12:30 PM EST [facility] 132 [facility] [place] [address] Destiny Schultz RN 132 [facility] [place] [address] 09/16/2024 3:00 PM EST [facility] Visit [facility] [address] [place] [address] Brandt Santacruz PA-C 132 [facility] [place] [address] 10/01/2024 1:00 PM EST Telemedicine Family Medicine [address] [phone] Kusum [address] [place] [address] 10/13/2024 11:30 AM EST Telemedicine Urology, [facility] 132 [facility] [place] [address] Chandler Pena MD [address] [place] [address] 11/24/2024 1:40 PM EDT Office Visit Dermatology [address] [place] [address] Sheyrl Pena PA-C [address] [place] [address] [place] [address] 04/18/2025 1:20 PM EDT Telemedicine Family Medicine [address] [place] [phone] Verónica Benavides MD [address] [place] [address] [place] [address] Health Maintenance Due Date Last Done Comments [...] Additional history exists CKD PHOS USE SMARTSET 51493 05/05/202504/25, 04/30/2024, 04/02/2024, Additional history exists CKD HGB USE SMARTSET 06105 08/04/202508/04, 08/04/2024, 05/26/2024, Additional history exists Pneumococcal [...] Documents on File Type Date Recorded 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
--- OUTSIDE RECORDS SUMMARY | 2024-08-15 22:49 | External Medical Summary | Summary of Care ---
Author Name Unknown Organization [facility] Address [address] [place] [address] Phone [phone] Care Team Providers Care Directional Bore Operator Name Role Phone Verónica Benavides MD Primary Care Provide r Reason for Visit * Reason Onset Date Comments [facility]: Maintenance 08/11/2024 Encounter Details Date Type Department Care Team (Late st Contact Info) Description 08/11/2024 Telephone [facility], [facility] [address] [facility] [place] [phone] Silvina Araujo RN [address] [place] [facility] [place] [address] [facility]: Maintenance Allergies Active Allergy Reactions Criticality Noted Date Comments Adhesive Tape Medium 01/30/2022 Ibuprofen Hives 01/13/2012 Aspirin Hives,Rash 09/15/2000 Sulfamethoxazole-Trimeth oprim Nausea/vomiting,Othe r (Please comment) 10/27/2020 Dizziness Ciprofloxacin Hcl 06/16/2019 Hoarse, dizzy,disoriented Morphine 09/21/2021 Blacked out Penicillins Hives,Rash 09/15/2000 Prednisone 12/30/2017 Weakness/memory changes/blurred vision documented as of this encounter (statuses as of 08/11/2024) Medications OneTouch Verio w/Device Kit Use up [...] -ischemic cardiomyopathy (HCC),Coronary artery disease involving [place] coronary artery of [place] heart without angina pectoris,HTN, goal below 140/90 [...] Tablet 3 08/06/20 Active OneTouch Delica Plus [id number] ns:Type 2 diabetes mellitus with hemoglobin A1c goal of less than 8.0% (HCC) Test up to two times daily or as directed by [facility] pharmacist 200 Each 3 08/06/20 Active OneTouch Verio In Vitro Strip (Glucose Blood)Indications: Type 2 diabetes mellitus with hemoglobin A1c goal of less than 8.0% (HCC),Type 2 diabetes mellitus with stage 3 chronic kidney disease, without long-term current use of insulin (HCC) TEST UP TO FOUR TIMES DAILY 400 Strip 3 08/06/20 Active documented as of this encounter (statuses as of 08/11/2024) Active Problems Problem Noted Date Diagnosed Date [...] Assessment & Plan (08/29/2021 1:27 PM EST): [facility] Triage Call: Reviewed [...] Assessment & Plan (08/29/2021 1:21 PM EST): [facility] Triage Call: Based on what [...] synthroid Coronary artery disease invo lving [place] coronary artery of [place] heart without angina pectoris 07/03/2012 Overview (07/03/2012): [...] as of this encounter (statuses as of 08/11/2024) Resolved Problems Problem Noted Date Diagnosed Date [...] as of this encounter (statuses as of 08/11/2024) Immunizations Name Administration Dates Next Due COVID-19 mRNA, LNP-s, No Pre serve, 2-Dose Series ([employer]) 08/29/2021,10/23/2020,10/02/2020 COVID-19, MRNA-LNP, PF, 30 M CG/0.3 mL, 12 YRS AND ABOVE, IM ([employer]) 08/04/2023 Covid-19, Mrna, Lnp-s, Pf, B ivalent, 30 Mcg, IM, 12 yrs and above ([employer]) 08/02/2022 Influenza, Whole Virus 08/07/2000 Pneumococcal Conjugate [...] encounter Miscellaneous Notes * Telephone Encounter - Lilia Shoemaker LPN - 08/11/2024 3:00 PM EST TT to [facility] scheduling for JERICHO visit * Telephone Encounter - Silvina Araujo RN - 08/11/2024 1:43 PM EST Received call from the pt's daughter Josselyn who is calling to notify [facility] that the pt came home from the [facility] hospital today. She had been admitted for ESBL e coli UTI and fluid over load. She received IV antibiotics and IV Lasix until yesterday. Today she is looking good. [facility] made referral to [facility] for PT and OT. Will send to the pt's [facility] care team and to [facility] Intake ATTORNEY LAWYER team for JERICHO appts. Silvina BURNS, RN [facility] Intake Nurse Navigator Triage documented in this encounter Plan of Treatment Upcoming Encounters Date Type Department Care Team (Late st Contact Info) Description 08/23/2024 12:30 PM EST [facility], [facility] [address] [place] [address] Destiny Schultz, RN [address] [place] [address] 09/16/2024 3:00 PM EST [facility] Visit [facility], [facility] [address] [place] [address] Brandt Santacruz PA-C [address] [place] [address] 10/01/2024 1:00 PM EST Telemedicine Family [address] [place] [phone] Kusum Jones CRNP [address] [place] [address] [place] [address] 10/13/2024 11:30 AM EST Telemedicine Urology, [facility] [address] [place] [address] Chandler Pena MD [address] [place] [address] 11/24/2024 1:40 PM EDT Office Visit Dermatology [address] [place] [address] Sheryl Pena PA-C [address] [place] [address] [place] [address] 04/18/2025 1:20 PM EDT Telemedicine Family Medicine [address] [place] [phone] Verónica Benavides MD [address] [place] [address] [place] [address] Health Maintenance Due Date Last Done Comments [...] Additional history exists CKD PHOS USE SMARTSET 54027 05/05/202504/25, 04/30/2024, 04/02/2024, Additional history exists CKD HGB USE SMARTSET 26249 08/04/202508/04, 08/04/2024, 05/26/2024, Additional history exists Pneumococcal [...] Documents on File Type Date Recorded 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
--- OUTSIDE RECORDS SUMMARY | 2024-08-15 22:49 | External Medical Summary | Summary of Care ---
Author Name Unknown Organization [facility] Address [address] [place] [address] Phone [phone] Care Team Providers Care Electrical Supervisor Name Role Phone Verónica Benavides MD Primary Care Provide r Reason for Visit * Reason Onset Date Comments [facility]: Maintenance 08/11/2024 Encounter Details Date Type Department Care Team (Late st Contact Info) Description 08/11/2024 Telephone [facility], [facility] [place] [facility] [address] [facility] [place] [phone] Silvina Araujo RN [address] [place] [facility] [place] [address] [facility]: Maintenance Allergies Active Allergy [...] Tablet 3 08/06/20 Active OneTouch Delica Plus [id number] ns:Type 2 diabetes mellitus with hemoglobin A1c goal of less than 8.0% (HCC) Test up to two times daily or as directed by [facility] pharmacist 200 Each 3 08/06/20 [...] Assessment & Plan (08/29/2021 1:27 PM EST): [facility] Triage [...] Assessment & Plan (08/29/2021 1:21 PM EST): [facility] Triage Call: Based on [...] mRNA, LNP-s, No Pre serve, 2-Dose Series ([employer]) 08/29/2021,10/23/2020,10/02/2020 COVID-19, MRNA-LNP, PF, 30 M CG/0.3 mL, 12 YRS AND ABOVE, IM ([employer]) 08/04/2023 Covid-19, Mrna, Lnp-s, Pf, B ivalent, 30 Mcg, IM, 12 yrs and above ([employer]) 08/02/2022 Pneumococcal Conjugate Vacc, 13 Valent (Prevnar) [...] daughter Josselyn who is calling to notify [facility] that the pt came home from the [facility] hospital today. She had been admitted for ESBL e coli UTI and fluid over load. She received IV antibiotics and IV Lasix until yesterday. Today she is looking good. [facility] made referral to [facility] for PT and OT. Will send to the pt's [facility] care team and to [facility] Intake ECOLOGIST team for JERICHO appts. Silvina BURNS, RN [facility] Intake Nurse Navigator Triage documented in this encounter Plan of Treatment Upcoming Encounters Date Type Department Care Team (Late st Contact Info) Description 08/23/2024 12:30 PM EST [facility] [address] [place] [address] Destiny Schultz, RN [address] [place] [address] 09/16/2024 3:00 PM EST [facility], [facility] [address] [place] [address] Brandt Santacruz PA-C [address] [place] [address] 10/01/2024 1:00 PM EST Telemedicine Family Medicine [address] [place] [phone] Kusum Jones CRNP [address] [place] [address] [place] [address] 10/13/2024 11:30 AM EST Telemedicine Urology, [facility] [address] [place] [address] Chandler Pena MD [address] [place] [address] [place] [address] 11/24/2024 1:40 PM EDT Office Visit Dermatology [address] [place] [address] Sheryl Pena PA-C [address] [place] [address] [place] [address] 04/18/2025 1:20 PM EDT Telemedicine Family Medicine [address] [place] [phone] Verónica Benavides MD [address] [place] [address] [place] [address] Health Maintenance Due Date Last Done Comments [...] Additional history exists CKD PHOS USE SMARTSET 89460 05/05/202504/25, 04/30/2024, 04/02/2024, Additional history exists CKD HGB USE SMARTSET 45824 08/04/202508/04, 08/04/2024, 05/26/2024, Additional history exists Pneumococcal [...] Documents on File Type Date Recorded Patient Clinic [facility] Expl anation Advance Directives and Living Will 08/10/2021 ADVANCE DIRECTIVE / LIVING WILL LIVING WILL Healthcare Agents on File Name Relationship Healthcare Agent Relationshi p Communication Josselyn Judd Adult Child Health Care Power of Attor nathalie Care Teams Electrical Supervisor Relationship Specialty Start Date End Date Verónica Benavides MD [address] [place] [address] [place] [phone] PCP - General Family Medicine 09/16/14 documented as of this encounter
--- OUTSIDE RECORDS SUMMARY | 2024-08-15 22:49 | External Medical Summary | Summary of Care ---
Author Name Unknown Organization [facility] Address [address] [place] [address] Phone [phone] Care Team Providers Care Curb Worker Name Role Phone Verónica Benavides MD Primary Care Provide r Reason for Visit * Reason Onset Date Comments [facility]: Engagement 08/11/2024 Encounter Details Date Type Department Care Team (Late st Contact Info) Description 08/11/2024 Telephone [facility] [place] [address] [place] [address] [phone] Caroline Iverson, BETTY [address] [place] [address] [facility]: Engagement Allergies Active Allergy Reactions Criticality Noted Date Comments Adhesive Tape Medium 01/30/2022 Ibuprofen Hives 01/13/2012 Aspirin Hives,Rash 09/15/2000 Sulfamethoxazole-Trimeth oprim Nausea/vomiting,Othe r (Please comment) 10/27/2020 Dizziness Ciprofloxacin Hcl 06/16/2019 Hoarse, dizzy,disoriented Morphine 09/21/2021 Blacked out Penicillins Hives,Rash 09/15/2000 Prednisone 12/30/2017 Weakness/memory changes/blurred vision documented as of this encounter (statuses as of 08/11/2024) Medications OneTouch Bear w/Device Kit Use up to 4 times [...] Tablet 3 08/06/20 Active OneTouch Delica Plus [id number] ns:Type 2 diabetes mellitus with hemoglobin A1c goal of less than 8.0% ([facility]) Test up to two times daily or as directed by [facility] pharmacist 200 Each 3 08/06/20 Active [...] Assessment & Plan (08/29/2021 1:27 PM EST): [facility] Triage Call: Reviewed last C&S [...] Assessment & Plan (01/14/2022 1:57 PM EDT): [facility] Call: I'm not sure who Dr [...] Assessment & Plan (08/29/2021 1:21 PM EST): [facility] Triage Call: Based on what is [...] mRNA, LNP-s, No Pre serve, 2-Dose Series (Pegastech) 08/29/2021,10/23/2020,10/02/2020 COVID-19, MRNA-LNP, PF, 30 M CG/0.3 mL, 12 YRS AND ABOVE, IM ([employer]-Comirnat) 08/04/2023 Covid-19, Mrna, Lnp-s, Pf, B ivalent, 30 Mcg, IM, 12 yrs and above (Pegastech) 08/02/2022 Pneumococcal Conjugate Vacc, 13 Valent (Prevnar) [...] encounter Miscellaneous Notes * Telephone Encounter - Caroline Iverson OSA - 08/11/2024 3:23 PM EST TT request to set up JERICHO, appt set for 08/16, spoke to daughter, pt approves documented in this encounter Plan of Treatment Upcoming Encounters Date Type Department Care Team (Late st Contact Info) Description 08/16/2024 4:00 PM EST [facility] [address] [place] [address] Destiny Schultz RN [address] [place] [address] 08/23/2024 12:30 PM EST [facility] Visit [facility], [facility] [address] [place] [address] Destiny Schultz RN [address] [place] [address] 09/16/2024 3:00 PM EST [facility] Visit [facility], [facility] [address] [place] [address] Brandt Santacruz PA-C [address] [place] [address] 10/01/2024 1:00 PM EST Telemedicine Family Medicine [address] [place] [phone] Kusum Jones CRNP [address] [place] [address] [place] [address] 10/13/2024 11:30 AM EST Telemedicine Urology, [facility] [address] [place] [address] Chandler Pena MD 27 [facility] [place] [address] 11/24/2024 1:40 PM EDT Office Visit Dermatology [address] [place] [address] Sheryl Pena PA-C [address] [place] [address] [place] [address] 04/18/2025 1:20 PM EDT Telemedicine Family Medicine [address] [place] [phone] Verónica Benavides MD [address] [place] [address] [place] [address] Health Maintenance Due Date Last Done Comments [...] Additional history exists CKD PHOS USE SMARTSET 99791 05/05/202504/25, 04/30/2024, 04/02/2024, Additional history exists CKD HGB USE SMARTSET 78890 08/04/202508/04, 08/04/2024, 05/26/2024, Additional history exists Pneumococcal [...] Documents on File Type Date Recorded Patient Central Sterile Technician Expl anation Advance Directives and Living Will 08/10/2021 ADVANCE DIRECTIVE / LIVING WILL LIVING WILL Healthcare Agents on File Name Relationship Healthcare Agent Relationshi p Communication Josselyn Judd Adult Child Health Care Power of Attor nathalie Care Teams Curb Worker Relationship Specialty Start Date End Date Verónica Benavides MD [address] [place] [address] [place] [address] PCP - General Family Medicine 09/16/14 documented as of this encounter
--- OUTSIDE RECORDS SUMMARY | 2024-08-15 22:49 | External Medical Summary | Summary of Care ---
Author Name Unknown Organization [facility] Address [address] [place] [address] Phone [phone] Care Team Providers Care Mechanical Design Drafter Name Role Phone Verónica Benavides MD Primary Care Provide r Encounter Details Date Type Department Care Team (Late st Contact Info) Description 07/27/2024 Result Scan Unspecified Department <No scans attached> Allergies Active Allergy Reactions Criticality Noted Date Comments Adhesive Tape Medium 01/30/2022 Ibuprofen Hives 01/13/2012 Aspirin Hives,Rash 09/15/2000 Sulfamethoxazole-Trimeth oprim Nausea/vomiting,Othe r (Please comment) 10/27/2020 Dizziness Ciprofloxacin Hcl 06/16/2019 Hoarse, dizzy,disoriented Morphine 09/21/2021 Blacked out Penicillins Hives,Rash 09/15/2000 Prednisone 12/30/2017 Weakness/memory changes/blurred vision documented as of this encounter (statuses as of 08/10/2024) Medications OneTouch Verio w/Device Kit Use up [...] as of this encounter (statuses as of 08/10/2024) Active Problems Problem Noted Date Diagnosed Date [...] Assessment & Plan (08/29/2021 1:27 PM EST): [facility] Triage Call: Reviewed [...] Assessment & Plan (01/14/2022 1:57 PM EDT): [facility] Call: I'm not sure [...] Assessment & Plan (08/29/2021 1:21 PM EST): [facility] Triage Call: Based on what [...] as of this encounter (statuses as of 08/10/2024) Resolved Problems Problem Noted Date Diagnosed Date [...] as of this encounter (statuses as of 08/10/2024) Immunizations Name Administration Dates Next Due COVID-19 mRNA, LNP-s, No Pre serve, 2-Dose Series ([employer]te [employer]) 08/29/2021,10/23/2020,10/02/2020 COVID-19, MRNA-LNP, PF, 30 M CG/0.3 mL, 12 YRS AND ABOVE, IM ([facility]) 08/04/2023 Covid-19, Mrna, Lnp-s, Pf, B ivalent, 30 Mcg, IM, 12 yrs and above ([employer]) 08/02/2022 Pneumococcal Conjugate Vacc, 13 Valent (Prevnar) [...] EST Laboratory [facility] [address] [place] [address] [facility] [address] [place], [place] [address] 08/23/2024 12:30 PM EST [facility], [facility] [address] [place] [address] Destiny Schultz, POPPY [address] [place] [address] 09/16/2024 3:00 PM EST [facility] Visit [facility], [facility] [address] [place] [address] Brandt Santacruz PA-C [address] [place] [address] 10/01/2024 1:00 PM EST Telemedicine Family Medicine [address] [phone] Kusum Jones CRNP [address] [place] [address] [place] [address] 10/13/2024 11:30 AM EST Telemedicine Urology, [facility] [address] [place] [address] Chandler Pena MD [address] [place] [address] 11/24/2024 1:40 PM EDT Office Visit Dermatology [address] [place] [address] Sheryl Pena PA-C [address] [place] [address] [place] [address] 04/18/2025 1:20 PM EDT Telemedicine Family Medicine [address] [place] [phone] Verónica Benavides MD [address] [place] [address] [place] [address] Health Maintenance Due Date Last Done Comments Zoster Vaccines ( 2) 1985 Adult Wellness Visit 09/11/2016 09/11/2015 [...] Additional history exists CKD PHOS USE SMARTSET 67831 05/05/202504/25, 04/30/2024, 04/02/2024, Additional history exists CKD HGB USE SMARTSET 62225 08/04/202508/04, 08/04/2024, 05/26/2024, Additional history exists Pneumococcal [...] Procedure Name Priority Date/Time Associated Diagnosis Comments EKG SCANNED RESULT 07/27/2024 documented in this encounter Results * EKG SCANNED RESULT (07/27/2024) 07/27/2024 us No Physician Data Unknown EKG Final Result documented in this encounter Additional Health Concerns Infection Onset Date Last Indicated Resolved Time ESBL 06/07/2024 06/07/2024 08/06/2024 12:1 9 AM EST ESBL 08/06/2024 08/06/2024 documented as of this encounter Advance Directives Documents on File Type Date Recorded Patient Yard Specialist Expl anation Advance Directives and Living Will 08/10/2021 ADVANCE DIRECTIVE / LIVING WILL LIVING WILL Healthcare Agents on File Name Relationship [facility] Josselyn Judd Adult Child Health Care Power of Attor nathalie Care Teams Mechanical Design Drafter Relationship Specialty Start Date End Date Verónica Benavides MD [address] [place] [address] [place] [address] PCP - General Family Medicine 09/16/14 documented as of this encounter
--- OUTSIDE RECORDS SUMMARY | 2024-08-15 22:49 | External Medical Summary | Summary of Care ---
Author Name Unknown Organization [facility] Address [address] [place] [address] Phone [phone] Care Team Providers Care Overhead Crane Operator Name Role Phone Verónica Benavides MD Primary Care Provide r Encounter Details Date Type Department Care Team (Late st Contact Info) Description 08/11/2024 Population Health External Data Unspecified Department Allergies [...] XL)Indications:Non -ischemic cardiomyopathy (HCC),Coronary artery disease involving yavapai-apache coronary [...] as directed with diuretic titration plan 07/23/20 24 Active DIURETIC TITRATION PLAN If no improvement [...] Tablet 3 08/06/20 Active OneTouch Delica Plus [id number] ns:Type 2 diabetes mellitus with hemoglobin A1c goal of less than 8.0% ([facility]) Test up to two times daily or as directed by [facility] pharmacist 200 Each 3 08/06/20 Active OneTouch Verio In Vitro Strip (Glucose Blood)Indications: Type 2 diabetes mellitus with hemoglobin A1c goal of less than 8.0% ([facility]),Type 2 diabetes mellitus with stage 3 chronic kidney disease, without long-term current use of insulin ([facility]) [...] Assessment & Plan (08/29/2021 1:27 PM EST): [facility] Triage Call: Reviewed last C&S [...] Assessment & Plan (01/14/2022 1:57 PM EDT): [facility] Call: I'm not sure who Dr [...] Assessment & Plan (08/29/2021 1:21 PM EST): [facility] Triage Call: Based on what is [...] of yavapai-apache heart without angina pectoris 07/03/2012 Overview (07/03/2012): [...] mRNA, LNP-s, No Pre serve, 2-Dose Series (Feedlooks) 08/29/2021,10/23/2020,10/02/2020 COVID-19, MRNA-LNP, PF, 30 M CG/0.3 mL, 12 YRS AND ABOVE, IM ([employer]-ComirnatFireHost) 08/04/2023 Covid-19, Mrna, Lnp-s, Pf, B ivalent, 30 Mcg, IM, 12 yrs and above ([employer]looks) 08/02/2022 Pneumococcal Conjugate Vacc, 13 Valent (Prevnar) [...] 12:30 PM EST [facility] [address] [place] [address] Destiny Schultz RN [address] [place] [address] 09/16/2024 3:00 PM EST [facility] [address] [place] [address] Brandt Santacruz PA-C [address] [place] [address] 10/01/2024 1:00 PM EST Telemedicine Family Medicine [address] [place] [phone] [address] [place] [address] 10/13/2024 11:30 AM EST Telemedicine Urology, [facility] [address] [place] [address] Chandler Pena MD [address] [place] [address] 11/24/2024 1:40 PM EDT Office Visit Dermatology [address] [place] [address] Sheryl Pena PA-C [address] [place] [address] [place] [address] 04/18/2025 1:20 PM EDT Telemedicine Family Medicine [address] [place] [phone] Verónica Benavides MD [address] [place] [address] [place] [address] Health Maintenance Due Date Last Done Comments [...] Additional history exists CKD PHOS USE SMARTSET 10904 05/05/202504/25, 04/30/2024, 04/02/2024, Additional history exists CKD HGB USE SMARTSET 32266 08/04/202508/04, 08/04/2024, 05/26/2024, Additional history exists Pneumococcal [...] Documents on File Type Date Recorded Patient Attorney Recruiter Expl anation Advance Directives and Living Will 08/10/2021 ADVANCE DIRECTIVE / LIVING WILL LIVING WILL Healthcare Agents on File Name Relationship Healthcare Agent [facility] Communication Josselyn Judd Adult Child Health Care Power of Attor nathalie Care Teams Overhead Crane Operator Relationship Specialty Start Date End Date Verónica Benavides MD [address] [place] [address] [place] [address] PCP - General Family Medicine 09/16/14 documented as of this encounter
--- OUTSIDE RECORDS SUMMARY | 2024-08-15 22:49 | External Medical Summary | Summary of Care ---
Author Name Unknown Organization [facility] Address [address] [place] [address] Phone [phone] Care Team Providers Care Support Merchandiser Name Role Phone Verónica Benavides MD Primary Care Provide r Reason for Visit * Reason Onset Date Comments After Hours Call 08/15/2024 Encounter Details Date Type Department Care Team (Late st Contact Info) Description 08/15/2024 Telephone Family Practice [address] [facility] [address] [place] [phone] Shey Sweet, [address] [place] [address] After Hours Call Allergies Active Allergy Reactions [...] morning and evening meals. 180 Tablet 3 11/05/20 24 Active metOLazone 2.5 MG Oral Tablet [...] Tablet 3 08/06/20 Active OneTouch Delica Plus [id number] ns:Type 2 diabetes mellitus with hemoglobin A1c goal of less than 8.0% ([facility]) Test up to two times daily or as directed by [facility] pharmacist 200 Each 3 08/06/20 Active OneTouch Verio In Vitro Strip (Glucose Blood)Indications: Type 2 diabetes mellitus with hemoglobin A1c goal of less than 8.0% ([facility]),Type 2 diabetes mellitus with stage 3 chronic kidney disease, without long-term current use of insulin ([facility]) TEST UP TO FOUR TIMES DAILY 400 Strip 3 08/06/20 Active Doxycycline Hyclate 100 MG Oral CapsuleIndications :Acute cough Take 1 Capsule by mouth in the morning and 1 Capsule before bedtime. Do all this for 10 days. Until gone.. 20 Capsule 08/15/20 24 025 Active documented as of this encounter (statuses [...] mRNA, LNP-s, No Pre serve, 2-Dose Series ([employer]ek) 08/29/2021,10/23/2020,10/02/2020 COVID-19, MRNA-LNP, PF, 30 M CG/0.3 mL, 12 YRS AND ABOVE, IM ([employer]) 08/04/2023 Covid-19, Mrna, Lnp-s, Pf, B ivalent, 30 Mcg, IM, 12 yrs and above ([employer]ek) 08/02/2022 Pneumococcal Conjugate Vacc, 13 Valent (Prevnar) [...] Telephone Encounter - Shey Sweet DO - 08/15/2024 3:03 PM EST Received page from nursing. Pt with RLE crackles as well as cough and hypoxia. Will get metolazone.Will start doxycycline given allergies and order CXR. Nursing at home and will discuss with pt and family. documented in this encounter Plan of Treatment Upcoming Encounters Date Type Department Care Team (Late st Contact Info) Description 08/16/2024 4:00 PM EST [facility] [place] [address] [place] [address] Destiny Schultz, POPPY [address] [place] [address] 08/23/2024 12:30 PM EST [facility] Visit [facility] [place], [facility] [address] [place] [address] Destiny Schultz RN 132 [facility] [place] [address] 09/16/2024 3:00 PM EST [facility] 132 [facility] [place] [address] Brandt Santacruz PA-C 132 [facility] [place] [address] 10/01/2024 1:00 PM EST Telemedicine Family Medicine [address] [place] [phone] Kusum Jones CRNP [address] [place] [address] [place] [address] 10/13/2024 11:30 AM EST Telemedicine Urology, [facility] 132 [facility] [place] [address] Chandler Pena MD [address] [place] [address] 11/24/2024 1:40 PM EDT Office Visit Dermatology [address] [place] [address] Sheryl Pena PA-C [address] [place] [address] [place] [address] 04/18/2025 1:20 PM EDT Telemedicine Family Medicine [address] [place] [phone] Verónica Benavides MD [address] [place] [address] [place] [address] Scheduled Orders Name Type Priority Associated Diagnoses Orde r Schedule XR CHEST 2 VIEWS Medical Imaging Routine Acute cough Ordered: 08/15/2024 Health Maintenance Due Date Last Done Comments [...] Additional history exists CKD PHOS USE SMARTSET 30907 05/05/202504/25, 04/30/2024, 04/02/2024, Additional history exists CKD HGB USE SMARTSET 82218 08/04/202508/04, 08/04/2024, 05/26/2024, Additional history exists Pneumococcal [...] stage 3a chronic kidney disease (HCC)- Primary Acute cough- Primary documented in this encounter Additional Health Concerns Infection Onset Date Last Indicated Resolved Time ESBL 08/06/2024 08/06/2024 documented as of this encounter Advance Directives Documents on File Type Date Recorded Patient Certified Emergency Vehicle Technician Expl 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 Communication Josselyn Judd Adult Child Health Care Power of Attor nathalie Care Teams Support Merchandiser Relationship Specialty Start Date End Date Verónica Benavides MD [address] [place] [address] [place] [address] PCP - General Family Medicine 09/16/14 documented as of this encounter
--- OUTSIDE RECORDS SUMMARY | 2024-08-15 22:50 | External Medical Summary ---
Author Name Unknown Address Unknown Organization K01:[facility] - [address] [facility] [address] Laboratory Report Ordering Provider Test Date Status ELIZABETH DOMINGUEZ 08/06/2024 09:20:00 Final <10,000 colonies/ml mixed no rmal rachid Observation Date Value Abnormality Reference (Units ) Status Bacteria identified in Specimen by Culture 08/06/2024 09:20:00 [id number]^ESCHE RICHIA COLI ESBL Abnormal Final >100,000 colonies/mL Escheri dianne coli ESBL producing organism, This patient may require isolation.
This gram negative bacilli displays in vitro resistance to multiple antibiotics. This patient may require isolation. Carbapenem use is preferred. Contact infectious disease service for further recommendations. Performing Location [facility] - [address] [facility] [address] Ordering Provider Test Date Status ELIZABETH DOMINGUEZ 08/06/2024 09:20:00 Final Observation Date Value Abnormality Reference (Units ) Status Ampicillin 08/06/2024 09:20:00 >=32 Resistant Final Ampicillin + Sulbactam 08/06/2024 09:20:00 4 Susceptible Final Cefazolin 08/06/2024 09:20:00 >=64 Resistant Final Cefepime susceptibility 08/06/2024 09:20:00 Susceptible Final This is an appended report. These results have been appended to a previously preliminary verified report. cefOXitin [Susceptibility] 08/06/2024 09:20:00 16 Int ermediate Final Ceftriaxone suceptibility 08/06/2024 09:20:00 >=64 Resi stant Final Ciprofloxacin 08/06/2024 09:20:00 0.5 Intermediate Final Due to serious side effects, the FDA has advised against using Ciprofloxacin to treat uncomplicated UTIs and respiratory tract infections unless there are no alternative treatment options. Gentamicin susceptibility 08/06/2024 09:20:00 <=1 Susc eptible Final Levofloxacin susceptibility 08/06/2024 09:20:00 1 In termediate Final Due to serious side effects, the FDA has advised against using Levofloxacin to treat uncomplicated UTIs and respiratory tract infections unless there are no alternative treatment options. Meropenem [Susceptibility] 08/06/2024 09:20:00 <=0.25 Katie ceptible Final Nitrofurantoin susceptibility 08/06/2024 09:20:00 256 Resistant Final Piperacillin + Tazobactamsusceptibility 08/06/2024 09:20:00 <=4 Susceptible Final TMP-SMZ susceptibility 08/06/2024 09:20:00 <=20 Suscept ible Final Performing Location [facility] - [address] [facility] [address] Ordering Provider Test Date Status ELIZABETH DOMINGUEZ 08/06/2024 09:20:00 Final Observation Date Value Abnormality Reference (Units ) Status Ertapenem [Susceptibility] 08/06/2024 09:20:00 28 Susceptible Susceptible >21 , Intermediate <=21 , Resistant <=18 Final Test: Culture, Urine, Quanti tative
Specimen Source: Urine, Unspecified
Specimen Type: Urine
Specimen Date: 08/06/2024919
Result Date: 08/09/2024 1508
Result Status: Final result
Abnormal: Yes
Resulting Lab: [facility]
[address]
[facility] [address]

CULTURE

>100,000 colonies/mL Escherichia coli ESBL producing organism, This patient may
require isolation. (Abnormal)

This gram negative bacilli displays in vitro resistance to multiple
antibiotics. This patient may require isolation. Carbapenem use is
preferred. Contact infectious disease service for further recommendations.

<10,000 colonies/ml mixed normal rachid

SUSCEPTIBILITY

Escherichia coli ESBL producing
organism, This patient may require
isolation.
METHOD MORALES CASTILLO

AMPICILLIN
AMPICILLIN/SULBACTAM
CEFAZOLIN
CEFEPIME
CEFOXITIN
CEFTRIAXONE
CIPROFLOXACIN
ERTAPENEM 28 Susceptible
GENTAMICIN
LEVOFLOXACIN
MEROPENEM
NITROFURANTOIN
PIPERACILLIN TAZOBACTAM
TRIMETH/SULFAMETHOXAZOLE

Escherichia coli ESBL producing
organism, This patient may require
isolation.
METHOD MICROBROTH DILUTIONS

AMPICILLIN >=32 Resistant
AMPICILLIN/SULBACTAM 4 Susceptible
CEFAZOLIN >=64 Resistant
CEFEPIME -- Susceptible [...] alternative treatment options.

null Performing Location [facility] - [address] [facility] [address]
[2024-08-15 23:33] LABS: Basophils # (auto) 0.05 K/uL (0.00-0.20); Basophils % (auto) 0.5 %; Eosinophils # (auto) 0.01 K/uL (0.00-0.50); Eosinophils % (auto) 0.1 %; Hematocrit (blood only) 27.6 % (37.0-47.0); Immature Granulocytes # (auto) 0.05 K/uL (0.01-0.20); Immature Granulocytes % (auto) 0.5 %; Lymphocytes # (auto) 0.52 K/uL (1.20-3.40); Mean Corpuscular Hemoglobin 37.7 pg (25.0-34.0); Mean Corpuscular Hgb Conc 32.6 g/dL (32.0-36.0); Mean Corpuscular Volume 115.5 fL (80.0-100.0); Monocytes # (auto) 1.06 K/uL (0.11-0.59); Monocytes % (auto) 10.1 %; Neutrophils # (auto) 8.81 K/uL (1.40-6.50); Neutrophils % (auto) 83.8 %; Nucleated RBC # (auto) 0.06 K/uL (0.00-0.12); Nucleated RBC % (auto) 0.6 %; Platelet Count 385 K/uL (130-400); RDW Coefficient of Variation 14.4 % (11.5-14.5); RDW Standard Deviation 60.1 fL (36.4-46.3); Red Blood Count 2.39 M/uL (4.20-5.40)
[2024-08-15 23:38] LABS: Albumin Globulin Ratio 1.3 (0.9-2); Albumin Level 3.9 gm/dl (3.4-5.0); BUN Creatinine Ratio 23.6 (10-20); Bilirubin,Total 0.6 mg/dl (0.2-1.0); Calcium 8.6 mg/dl (8.6-10.3); Creatinine Clr Calc Pharmacy 23.1 ml/min; Magnesium 2.2 mg/dl (1.7-2.4); Potassium 4.3 mmol/L (3.5-5.1); Total Protein 6.9 gm/dl (6.0-8.3)
--- NOTE | 2024-08-15 23:43 | Emergency Department Note ---
Impression & Plan CHF (congestive heart failure), Acute renal insufficiency ED Provider Note CHIEF COMPLAINT: Shortness of breath HISTORY OF PRESENT ILLNESS: This 89-year-old female patient presents to the emergency department with complaints of shortness of breath. Patient has been hospitalized and was just discharged several days ago after an ESBL UTI. Patient was discharged on p.o. Bactrim. Daughter states she has not been able to urinate and feels as though her bladder is full. She does have chronic swelling of the bilateral lower extremities however family believes it is worse than usual. She has been weak and unable to stand over the last 24 hours. She has not been eating or drinking well. She was with the home health nurse today and vomited x 1. Patient denies any significant chest pain, Fevers, blood in the emesis. patient was noted by nursing staff to be hypoxic on room air at triage. REVIEW OF SYSTEMS: A review of systems was performed with positives and pertinent negatives listed in the history of present illness. 10 systems were reviewed and are otherwise negative. ALLERGIES: see below MEDICATIONS: see below PMH: see below SOCIAL HISTORY: see below DDx: Dehydration, acute kidney injury, UTI, congestive heart failure, acute coronary syndrome, dysrhythmia, among others. PHYSICAL EXAM: Vital signs reviewed. General: Chronically ill-appearing 89-year-old female, in no significant distress. on nasal cannula oxygen HEENT: No scleral icterus, PERRLA, neck supple. Atraumatic. Cardiovascular: Regular rate and rhythm, no extra sounds. systolic ejection murmur Pulmonary: crackles to the bases to auscultation bilaterally, slightly increased work of breathing on nasal cannula oxygen. Abdomen: Soft, obese, nontender, nondistended, positive bowel sounds. Musculoskeletal: Atraumatic, chronic lymphedema 2+ peripheral edema. Neurologic: Patient awake alert and oriented x 3, speech is clear Skin: Warm, dry, no rash EMERGENCY DEPARTMENT COURSE/MDM: this patient was evaluated and appeared to be in no significant distress. IV access was obtained and laboratory work was drawn. The patient was placed on the compliance monitor noted to be in a paced rhythm. Chest x-ray was performed and reveals significant pulmonary vascular congestion. Patient was medicated with 40 mg of IV Lasix. She was maintaining her oxygenation well on supplemental O2. Laboratory work reveals a slightly worsened acute on chronic renal failure and anemia. Creatinine today is 1.9 from baseline of 1.06 and hemoglobin of 8.5. A [place] catheter was placed secondary to urinary retention. UA is negative for infection. given the patient's worsening renal function and congestive changes on chest x-ray, the case was discussed with the hospitalist service who will evaluate the patient for admission and further management. The patient is aware of the plan and agrees. MONITORING: An order for cardiac monitoring was placed and the patient is noted to be in a ventricularly paced rhythm at 80 beats per minute. RADIOLOGY: chest x-ray to my interpretation reveals cardiomegaly with pulmonary vascular congestion. EKG: To my interpretation reveals evidence of an atrially sensed and ventricularly paced rhythm at 77 bpm. QTc is 500. Normal ST segments. No PVC, no PAC. DISPOSITION: Admission Past Med/Surg History Problem List (Updated 08/17/24 @ 05:42 by Razia Chambers MD) Acute renal insufficiency (Acute) Urinary retention Acute on chronic combined systolic (congestive) and diastolic (congestive) heart failure Atypical chest pain Diabetes mellitus type 2, controlled Hypothyroidism (acquired) UTI (urinary tract infection) (Acute) Nausea (Acute) Anemia (Acute) Constipation (Acute) Acute metabolic encephalopathy Complicated urinary tract infection (Acute) Non-ST elevation OK (NSTEMI) (Acute) Elevated lactic acid level (Acute) Generalized weakness (Acute) Physical deconditioning Asymptomatic bacteriuria Acute systolic heart failure due to valvular disease Acute on chronic systolic congestive heart failure Anemia (Acute) CHF (congestive heart failure) (Acute) Shortness of breath (Acute) Nocturnal hypoxia Recurrent UTI Complicated UTI (urinary tract infection) Acute on chronic combined systolic and diastolic heart failure Knee contusion Urinary tract infection due to Proteus Hip pain, acute Ambulatory dysfunction (Acute) Acute knee pain (Acute) STEVE (acute kidney injury) Chronic combined systolic (congestive) and diastolic (congestive) heart failure CHF (congestive heart failure) (Acute) Generalized weakness (Acute) UTI due to extended-spectrum beta lactamase (ESBL) producing Escherichia coli (Acute) UTI due to extended-spectrum beta lactamase (ESBL) producing Escherichia coli Chronic heart failure with preserved ejection fraction Acute on chronic heart failure with preserved ejection fraction (HFpEF) Severe aortic stenosis CHF (congestive heart failure) Cough (Acute) Acute foot pain (Acute) Fall (Acute) HTN (hypertension) Right calcaneal fracture COVID-19 (Acute) DVT prophylaxis UTI due to Klebsiella species Diabetes mellitus, type II (Chronic) Aortic stenosis, moderate (Chronic) Pacemaker (Chronic) Lymphedema (Chronic) Dyspnea on exertion (Acute) History of recurrent UTIs (Chronic) Arthritis (Chronic) LBBB (left bundle branch block) (Chronic) Vertigo (Chronic) Systolic heart failure (Chronic) Hypothyroidism (Chronic) History of knee replacement, total (Chronic) NICM (nonischemic cardiomyopathy) (Chronic) Medical History Dizziness Lactic acidemia Acute UTI Hypoxia Pneumonia Surgical History History of hysterectomy Hx of cholecystectomy Family History Other Diabetes Heart disease Hypertension Social History Smoking Status: Never smoker Second Hand Exposure: No; Do You Dip or Chew Tobacco: No; Hx Alcohol Use: No Hx Substance Use: No Preferred Language: [place] Communication Ability: Effective Medical Assistant Secretary Required: No Beliefs That Will Affect Care: None marital status: / Current Living Situation: Alone and Other Current Living Situation Comment: w/ 24hr caregiver current occupational status: retired How many Children do You have: 1 Other Information That Helps Us Care for You: No Feels Safe at Home: Yes Safety Concerns: Feels Safe At This Time Assistive Devices: Denture - Upper, Denture - Lower, Oxygen - at Night and Walker Allergies Allergies Allergy/AdvReac Type Severity Reaction Status Date / Time aspirin Allergy Intermediate Hives, Verified 07/04/24 21:25 shortness of breath ibuprofen Allergy Intermediate Rash, hives Verified 07/04/24 21:25 Penicillins Allergy Intermediate Rash, hives Verified 07/04/24 21:25 adhesive Allergy Mild Reddened Verified 07/04/24 21:25 and sore skin morphine AdvReac Severe BLACKED OUT Verified 07/04/24 21:25 ciprofloxacin AdvReac Intermediate DIZZINESS/H Verified 07/04/24 21:25 OARSE/DISOR IENTED sulfamethoxazole AdvReac Intermediate NAUSEA/VOMI Verified 07/04/24 21:25 [From Bactrim] TING/DIZZIN ESS trimethoprim [From Bactrim] AdvReac Intermediate NAUSEA/VOMI Verified 07/04/24 21:25 TING/DIZZIN ESS prednisone AdvReac Mild CONFUSION/BLURRED Verified 07/04/24 21:25 VISION/WEAKNESS Home Meds Home Medications Medication Instructions Recorded Confirmed benzonatate 100 mg capsule 100 mg PO TID PRN Cough 08/16/24 08/16/24 bisacodyl 5 mg tablet,delayed 10 mg PO BID PRN Constipation 08/16/24 08/16/24 release (Dulcolax (bisacodyl)) cholecalciferol (vitamin D3) 25 25 mcg PO DAILY 08/16/24 08/16/24 mcg (1,000 unit) tablet (Vitamin D3) colchicine 0.6 mg tablet 0.6 mg PO BID PRN gout attack 08/16/24 08/16/24 conjugated estrogens 0.625 mg/gram 1 applic vaginal HS 08/16/24 08/16/24 vaginal cream (Premarin) cyanocobalamin (vitamin B-12) 1,000 mcg PO DAILY 08/16/24 08/16/24 1,000 mcg tablet d-mannose 500 mg capsule 1,000 mg PO BID 08/16/24 08/16/24 diclofenac sodium 1 % topical gel 2 g topical TID PRN Knee pain 08/16/24 08/16/24 dulaglutide 0.75 mg/0.5 mL 0.75 mg subcut WK 08/16/24 08/16/24 subcutaneous pen injector (Trulicity) glucosamine sulf dipot 1 cap PO BID 08/16/24 08/16/24 chlr,msm,chond 550 mg-C 30 mg-vandana 1 mg capsule (Glucosamine Chondroitin) levothyroxine 88 mcg tablet 88 mcg PO DAILY 08/16/24 08/16/24 magnesium oxide 400 mg PO QDL 08/16/24 08/16/24 meclizine 25 mg tablet 25 mg PO TID PRN Dizziness Or 08/16/24 08/16/24 Vertigo metoprolol succinate 25 mg 25 mg PO PM 08/16/24 08/16/24 tablet,extended release 24 hr mirabegron 25 mg tablet,extended 25 mg PO DAILY 08/16/24 08/16/24 release 24 hr (Myrbetriq) nitrofurantoin 100 mg PO HS 08/16/24 08/16/24 monohydrate/macrocrystals 100 mg capsule omeprazole 20 mg capsule,delayed 20 mg PO DAILY 08/16/24 08/16/24 release ondansetron HCl 4 mg tablet 4 mg PO Q6H PRN Nausea And Vomiting 08/16/24 08/16/24 polyethylene glycol 3350 17 17 g PO DAILY 08/16/24 08/16/24 gram/dose oral powder potassium chloride 20 mEq 20 meq PO BID 08/16/24 08/16/24 tablet,extended release(part/cryst) sennosides 8.6 mg-docusate sodium 3 tab-cap PO BID 08/16/24 08/16/24 50 mg tablet (Senokot-S) spironolactone 25 mg tablet 12.5 mg PO DAILY 08/16/24 08/16/24 torsemide 100 mg tablet 100 mg PO BID 08/16/24 08/16/24 Results & Data (ED) Vital Signs Vital Signs - 24 hr 08/16/24 00:30 08/16/24 00:32 08/16/24 01:30 Pulse Rate 77 76 Pulse Rate [Apical] 76 Pulse Rhythm [Apical] Regular Respiratory Rate 22 19 24 Respiratory Effort / Characteristics Non-Labored Spontaneous Respiratory Depth Normal Respiratory Pattern Regular Blood Pressure 108/51 L 99/56 L Blood Pressure [Right Arm] 108/51 L Blood Pressure Mean 69 68 Blood Pressure Mean [Right Arm] 70 Pulse Oximetry 95 96 95 Oxygen Delivery Method Nasal Cannula Nasal Cannula Nasal Cannula Oxygen Flow Rate 4 4 4 Home Medications Current Medication List: was personally reviewed by me Laboratory Data Attestation: I reviewed the patient's lab results. 08/16/24 05:50 08/16/24 05:50 Lab Results 08/15/24 08/16/24 Range/Units 22:57 00:10 WBC 10.50 (4.8-10.8) K/ul RBC 2.39 L (4.20-5.40) M/uL Hgb 9.0 L (12.0-16.0) g/dl Hct 27.6 L (37.0-47.0) % MCV 115.5 H (80.0-100.0) fL MCH 37.7 H (25.0-34.0) pg MCHC 32.6 (32.0-36.0) g/dL RDW Std Deviation 60.1 H (36.4-46.3) fL RDW Coeff of Jon 14.4 (11.5-14.5) % Plt Count 385 (130-400) K/uL MPV 10.0 (9.4-12.4) fL Immature Gran % (Auto) 0.5 % Neut % (Auto) 83.8 % Lymph % (Auto) 5.0 % [place] % (Auto) 10.1 % Eos % (Auto) 0.1 % Baso % (Auto) 0.5 % Neut # (Auto) 8.81 H (1.40-6.50) K/uL Lymph # (Auto) 0.52 L (1.20-3.40) K/uL [place] # (Auto) 1.06 H (0.11-0.59) K/uL Eos # (Auto) 0.01 (0.00-0.50) K/uL Baso # (Auto) 0.05 (0.00-0.20) K/uL Immature Gran # (Auto) 0.05 (0.01-0.20) K/uL Absolute Nucleated RBC 0.06 (0.00-0.12) K/uL Nucleated RBC % (auto) 0.6 % Polychromasia 2+ Macrocytosis Present PT 11.3 (9.0-12.0) Seconds INR 1.0 (0.9-1.1) APTT 29 (21-31) Seconds PTT Ratio 1.1 Sodium 131 L (136-145) mmol/L Potassium 4.3 (3.5-5.1) mmol/L Chloride 97 L (98-107) mmol/L Carbon Dioxide 25 (21-32) mmol/L Anion Gap 9 (3-11) BUN 45 H (6-23) mg/dl Creatinine 1.91 H (0.6-1.2) mg/dl Est Cr Clr Drug Dosing 23.1 ml/min eGFR 24.77 BUN/Creatinine Ratio 23.6 H (10-20) Glucose 193 H (70-99(Fasting)) mg/dl Calcium 8.6 (8.6-10.3) mg/dl Magnesium 2.2 (1.7-2.4) mg/dl Total Bilirubin 0.6 (0.2-1.0) mg/dl AST 13 (13-39) U/L ALT 9 (7-52) U/L Alkaline Phosphatase 77 (34-104) U/L Troponin I High Sens 18.0 H (0-14) pg/ml B-Natriuretic Peptide 874 H (0-100) pg/ml Total Protein 6.9 (6.0-8.3) gm/dl Albumin 3.9 (3.4-5.0) gm/dl Globulin 3.0 (2.5-4.0) gm/dl Albumin/Globulin Ratio 1.3 (0.9-2) Urine Color Yellow Urine Appearance Clear (Clear) Urine pH 5.5 (4.5-7.5) Ur Specific [place] 1.013 (1.000-1.030) Urine Protein Negative (Negative) Urine Glucose (UA) Negative (Negative) Urine Ketones Negative (Negative) Urine Blood Negative (Negative) Urine Nitrite Negative (Negative) Urine Bilirubin Negative (Negative) Urine Urobilinogen Negative (Negative) Ur Leukocyte Esterase Negative (Negative) Adenovirus (PCR) Not Detected (NotDetected) B. pertussis DNA (PCR) Not Detected (NotDetected) B.parapertussis DNA PCR Not Detected (NotDetected) C. pneumoniae DNA (PCR) Not Detected (NotDetected) Coronavirus OC43 (PCR) Not Detected (NotDetected) Coronavirus HKU1 (PCR) Not Detected (NotDetected) Coronavirus 229E (PCR) Not Detected (NotDetected) SARS-CoV-2 (PCR) Not Detected (NotDetected) Coronavirus NL63 (PCR) Not Detected (NotDetected) Human Metapneumovir PCR Not Detected (NotDetected) Influenza Type A (PCR) Not Detected (NotDetected) Influenza Type B (PCR) Not Detected (NotDetected) M. pneumoniae (PCR) Not Detected (NotDetected) Parainfluenza 1 (PCR) Not Detected (NotDetected) Parainfluenza 2 (PCR) Not Detected (NotDetected) Parainfluenza 3 (PCR) Not Detected (NotDetected) Parainfluenza 4 (PCR) Not Detected (NotDetected) RSV (PCR) Not Detected (NotDetected) Entero/Rhino (PCR) Not Detected (NotDetected) Administered Medications Cyanocobalamin (Cyanocobalamin (B-12) 500 Mcg Tablet) 1,000 mcg PO DAILY BRENT Stop: 09/15/24 08:59 Last Admin: 08/16/24 08:08 Dose: 1,000 mcg Documented By: CHRISTI Estrogens Conjugated (Premarin Vag Crm 14 Appln/30 Gm Tube) 1 appln PV HS BRENT Stop: 09/15/24 20:59 Last Admin: 08/16/24 20:41 Dose: Not Given Documented By: TODD Furosemide (Furosemide 40 Mg/4 Ml Vial) 40 mg IV BID BRENT Stop: 09/15/24 08:59 Last Admin: 08/16/24 09:15 Dose: 40 mg Documented By: CHRISTI Heparin Sodium (Porcine) (Heparin Sod 5,000 Unit/0.5 Ml Vial) 7,500 units SQ Q12 BRENT Stop: 09/15/24 08:59 Last Admin: 08/16/24 20:28 Dose: 7,500 units Documented By: Admin: 08/16/24 10:02 Dose: 7,500 units Documented By: CHRISTI Insulin Aspart (Insulin Aspart Per Unit Charge) 0 units SC ACHS [facility] Stop: 09/15/24 07:29 Last Admin: 08/16/24 20:25 Dose: Not Given Documented By: Admin: 08/16/24 17:00 Dose: 1 units Documented By: CHRISTI Co-signed By: RITU Admin: 08/16/24 11:48 Dose: 1 units Documented By: CHRISTI Co-signed By: JENNIFER Admin: 08/16/24 08:10 Dose: 1 units Documented By: CHRISTI Co-signed By: LISBETH Levothyroxine Sodium (Levothyroxine Sodium 88 Mcg Tablet) 88 mcg PO DAILYBB [facility] Stop: 09/15/24 06:29 Last Admin: 08/16/24 06:40 Dose: 88 mcg Documented By: YAMILEX Magnesium Oxide (Magnesium Oxide 400 Mg Tab) 400 mg PO QDL BRENT Stop: 09/15/24 11:29 Last Admin: 08/16/24 11:48 Dose: 400 mg Documented By: CHRSITI Meclizine HCl (Meclizine Hcl 25 Mg Tab) 25 mg PO TID PRN PRN Reason: Dizziness Or Vertigo Stop: 09/15/24 05:29 Last Admin: 08/16/24 08:11 Dose: 25 mg Documented By: CHRISTI Metoprolol Succinate (Metoprolol Succ 25mg Ext Rel Tab) 25 mg PO PM BRENT Stop: 09/15/24 20:59 Last Admin: 08/16/24 20:30 Dose: 25 mg Documented By: TODD Pantoprazole Sodium (Pantoprazole 40 Mg Tab) 40 mg PO DAILY BRENT Stop: 09/15/24 08:59 Last Admin: 08/16/24 08:11 Dose: 40 mg Documented By: CHRISTI Polyethylene Glycol (Polyethylene (Miralax) 17 Gm Pack) 17 gm PO DAILY BRENT Stop: 09/15/24 08:59 Last Admin: 08/16/24 08:11 Dose: Not Given Documented By: CHRISTI Potassium Chloride (Potassium Chloride Crtab 20 Meq Tabcr) 20 meq PO BID BRENT Stop: 09/15/24 08:59 Last Admin: 08/16/24 20:28 Dose: 20 meq Documented By: Admin: 08/16/24 08:11 Dose: 20 meq Documented By: CHRISTI Senna/Docusate Sodium (Docusate Sodium/Senna 50/8.6mg Tab) 3 tab PO BID BRENT Stop: 09/15/24 08:59 Last Admin: 08/16/24 20:29 Dose: 3 tab Documented By: Admin: 08/16/24 08:10 Dose: 3 tab Documented By: CHRISTI Vibegron (Vibegron 75 Mg Tab) 75 mg PO DAILY BRENT Stop: 09/15/24 08:59 Last Admin: 08/16/24 10:05 Dose: 75 mg Documented By: CHRISTI Vitamin D (Cholecalciferol 25 Mcg (1000 Units) Tab) 25 mcg PO DAILY BRENT Stop: 09/15/24 08:59 Last Admin: 08/16/24 08:07 Dose: 25 mcg Documented By: CHRISTI Discontinued Medications Furosemide (Furosemide 40 Mg/4 Ml Vial) 40 mg IV ONE ONE Stop: 08/15/24 23:32 Last Admin: 08/16/24 00:17 Dose: 40 mg Documented By: ALTON Discharge Plan Visit Data Chief Complaint: Cardiac Assessment Stated Complaint: CHEST PAIN, SHORTNESS OF BREATH, COUGH ED Provider: Razia Chambers Discharge Problem: CHF (congestive heart failure), Acute renal insufficiency Patient Disposition: Admitted As Inpatient Discharge Instructions Interventions: ED Discharge Assessment Last Done: 08/16/24 04:40 Discharge Problem: CHF (congestive heart failure) Qualifiers: Heart failure type: unspecified Heart failure chronicity: acute on chronic Q ualified Code(s): I50.9 - Heart failure, unspecified
[2024-08-15 23:55] LABS: Macrocytosis Present; Polychromasia 2+
[2024-08-15 23:59] LABS: Partial Thromboplastin Ratio 1.1; Partial Thromboplastin Time 29 Seconds (21-31); Prothrombin Time 11.3 Seconds (9.0-12.0)
[2024-08-16] MEDS: FUROSEMIDE 40 MG/4 ML VIAL IV ONE (00:17)
[2024-08-16 00:27] LABS: Appearance Urine Clear (Clear); Bilirubin Urine Negative (Negative); Blood Urine Negative (Negative); Color Urine Yellow; Glucose Urine UA Negative (Negative); Ketones Urine Negative (Negative); Leukocyte Esterase Urine Negative (Negative); Nitrite Urine Negative (Negative); Protein Urine Negative (Negative); Specific Gravity Urine 1.013 (1.000-1.030); Urobilinogen Urine Negative (Negative); pH Urine 5.5 (4.5-7.5)
[2024-08-16 00:33] LABS: Adenovirus PCR Not Detected (NotDetected); Bordetella parapertussis PCR Not Detected (NotDetected); Bordetella pertussis PCR Not Detected (NotDetected); Chlamydia pneumoniae PCR Not Detected (NotDetected); Coronavirus 229E PCR Not Detected (NotDetected); Coronavirus CoV-2 (COVID19)PCR Not Detected (NotDetected); Coronavirus HKU1 PCR Not Detected (NotDetected); Coronavirus NL63 PCR Not Detected (NotDetected); Coronavirus OC43PCR Not Detected (NotDetected); Human Metapneumovirus PCR Not Detected (NotDetected); Influenza A PCR Not Detected (NotDetected); Influenza B PCR Not Detected (NotDetected); Mycoplasma pneumoniae PCR Not Detected (NotDetected); Parainfluenza Virus 1 PCR Not Detected (NotDetected); Parainfluenza Virus 2 PCR Not Detected (NotDetected); Parainfluenza Virus 3 PCR Not Detected (NotDetected); Parainfluenza Virus 4 PCR Not Detected (NotDetected); Respiratory Syncytial VirusPCR Not Detected (NotDetected); Rhinovirus/Enterovirus PCR Not Detected (NotDetected)
--- NOTE | 2024-08-16 00:35 | XRay Report ---
Exam(s): XR CXR 1 VIEW EXAM: XR Chest, 1 View CLINICAL HISTORY: Reason for exam: Dyspnea. TECHNIQUE: Frontal view of the chest. COMPARISON: No relevant prior studies available. FINDINGS: Lungs: Unremarkable. No consolidation. Pleural space: Unremarkable. No pneumothorax. Heart: Moderate cardiomegaly, similar to previous. Mediastinum: Unremarkable. Normal mediastinal contour. Bones/joints: Unremarkable. No acute fracture. Vasculature: Prominent vascular and interstitial markings with mild central bibasilar edema, new since previous. Tubes, lines and devices: There is a pacing device on the left with leads running to the right side of the heart. Upper abdomen: There is no pneumoperitoneum under the diaphragm. IMPRESSION: 1. Moderate cardiomegaly, similar to previous. 2. There is a pacing device on the left with leads running to the right side of the heart. 3. Prominent vascular and interstitial markings with mild central bibasilar edema, new since previous. Electronically signed by: Carlos Enrique Aranda MD 08/16/24 00:34 AM
--- NOTE | 2024-08-16 02:49 | History & Physical Report ---
Date of Service August 16, 2024 Assessment & Plan (1) Acute on chronic combined systolic (congestive) and diastolic (congestive) heart failure: Plan: 89-year-old female with past medical history significant for type 2 diabetes, CKD stage III, hypothyroidism, hyperlipidemia, diabetic retinopathy, first- degree atrioventricular block, chronic combined systolic and diastolic CHF, severe aortic stenosis, history of CAD,biventricular cardiac pacemaker, GERD, morbid obesity, recurrent UTI, lymphedema of both lower extremities, benign paroxysmal vertigo, anemia, aspirin allergy, ACEI/ARB contraindicated, ESBL E. 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, ventral hernia without obstruction, ambulatory dysfunction and ambulates with a rollator walker and lives alone at home and has 24hrs caregivers and daughter lives close by was brought in because of weakness, shortness of breath and urinary retention. Patient was recently admitted for constipation , end of June. She was again admitted on 08/08/2024 and discharged on 08/11/2024 for UTI and also acute on chronic combined systolic and diastolic CHF. She had ESBL UTI, after discussing with ID was discharged on Bactrim. She is taking torsemide 100 mg twice daily. As per daughter's after going home she walked with walker in the daytime on the discharge day but since the night of the same day she is mostly sitting in the wheelchair. She also coughing a lot and bringing phlegm. And having nausea. And today whole day she could not micturate. She is on oxygen mostly while sleeping but lately is using oxygen all day. No fevers. Earlier had chest pain but denies any chest pain now. Denies any headache. On and off double vision which is chronic. Currently no runny nose or sore throat. Currently no abdominal pain. Moving bowels ok with the stool softeners. Daughter thinks the lower extremity edema is more than her usual. In the ER after [place] catheter placed she seemed drained about 1.1 L of the urine. She also received Lasix in the ER. Resting comfortably currently. Daughters are in the room who helped with H&P. Acute on chronic combined systolic and diastolic CHF Severe aortic stenosis Presents with shortness of breath and cough and hypoxia BNP 874 Received IV Lasix 40 mg in the ER Will continue IV Lasix 40 mg twice daily Hold torsemide while getting Lasix Continue spironolactone Daily weights and I's and O's Telemetry Cardiac consult in a.m. for further recommendations STEVE on CKD stage III Creatinine 1.9 Baseline around 0.9-1 Had urinary retention Status post [place] Bactrim could be contributing Could be cardiorenal Got Lasix Will follow labs in a.m. if worsening will consult nephro Urinary retention Status post [place] Possibly from Bactrim Urology consulted in a.m. for further recommendations Cough Respiratory BioFire negative Will follow procalcitonin Possible from CHF Mild elevation troponin Mostly demand ischemia Will follow serial enzymes Hyponatremia Sodium 131 Will follow labs in a.m. Recent ESBL UTI UA is okay today History of CAD On beta-barry Hypothyroidism On Synthyroid Bilateral lower EXTR lymphedema We will check Dopplers GERD On omeprazole Chronic anemia Hemoglobin 9.0 around baseline Follow labs History of constipation Continue stool softeners Ambulatory dysfunction PT OT when stable DVT prophylaxis Heparin subcu Disposition Telemetry . History of Present Illness Chief Complaint: Shortness of breath, weakness, urinary retention Primary Care Provider: Verónica Benavides MD 89-year-old female with past medical history significant for type 2 diabetes, CKD stage III, hypothyroidism, hyperlipidemia, diabetic retinopathy, first- degree atrioventricular block, chronic combined systolic and diastolic CHF, severe aortic stenosis, history of CAD,biventricular cardiac pacemaker, GERD, morbid obesity, recurrent UTI, lymphedema of both lower extremities, benign paroxysmal vertigo, anemia, aspirin allergy, ACEI/ARB contraindicated, ESBL E. 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, ventral hernia without obstruction, ambulatory dysfunction and ambulates with a rollator walker and lives alone at home and has 24hrs caregivers and daughter lives close by was brought in because of weakness, shortness of breath and urinary retention. Patient was recently admitted for constipation , end of June. She was again admitted on 08/08/2024 and discharged on 08/11/2024 for UTI and also acute on chronic combined systolic and diastolic CHF. She had ESBL UTI, after discussing with ID was discharged on Bactrim. She is taking torsemide 100 mg twice daily. As per daughter's after going home she walked with walker in the daytime on the discharge day but since the night of the same day she is mostly sitting in the wheelchair. She also coughing a lot and bringing phlegm. And having nausea. And today whole day she could not micturate. She is on oxygen mostly while sleeping but lately is using oxygen all day. No fevers. Earlier had chest pain but denies any chest pain now. Denies any headache. On and off double vision which is chronic. Currently no runny nose or sore throat. Currently no abdominal pain. Moving bowels ok with the stool softeners. Daughter thinks the lower extremity edema is more than her usual. In the ER after [place] catheter placed she seemed drained about 1.1 L of the urine. She also received Lasix in the ER. Resting comfortably currently. Daughters are in the room who helped with H&P. Past medical history. As mentioned above Past surgical history. Bilateral total knee replacement. ESWL. Laparoscopic cholecystectomy. Right suture repair of entropion. Total hysterectomy for fibroids. Social history. . No smoking. No alcohol use. No drug use. Family history. Mother had diabetes. [place]. Hypertension. Allergies Allergy/AdvReac Type Severity Reaction Status Date / Time aspirin Allergy Intermediate Hives, Verified 07/04/24 21:25 shortness of breath ibuprofen Allergy Intermediate Rash, hives Verified 07/04/24 21:25 Penicillins Allergy Intermediate Rash, hives Verified 07/04/24 21:25 adhesive Allergy Mild Reddened Verified 07/04/24 21:25 and sore skin morphine AdvReac Severe BLACKED OUT Verified 07/04/24 21:25 ciprofloxacin AdvReac Intermediate DIZZINESS/H Verified 07/04/24 21:25 OARSE/DISOR IENTED sulfamethoxazole AdvReac Intermediate NAUSEA/VOMI Verified 07/04/24 21:25 [From Bactrim] TING/DIZZIN ESS trimethoprim [From Bactrim] AdvReac Intermediate NAUSEA/VOMI Verified 07/04/24 21:25 TING/DIZZIN ESS prednisone AdvReac Mild CONFUSION/BLURRED Verified 07/04/24 21:25 VISION/WEAKNESS Home Medications Medication Instructions Recorded Confirmed Type benzonatate 100 mg capsule 100 mg PO TID PRN Cough 08/16/24 08/16/24 History bisacodyl 5 mg tablet,delayed 10 mg PO BID PRN Constipation 08/16/24 08/16/24 History release (Dulcolax (bisacodyl)) cholecalciferol (vitamin D3) 25 25 mcg PO DAILY 08/16/24 08/16/24 History mcg (1,000 unit) tablet (Vitamin D3) colchicine 0.6 mg tablet 0.6 mg PO BID PRN gout attack 08/16/24 08/16/24 History conjugated estrogens 0.625 mg/gram 1 applic vaginal HS 08/16/24 08/16/24 History vaginal cream (Premarin) cyanocobalamin (vitamin B-12) 1,000 mcg PO DAILY 08/16/24 08/16/24 History 1,000 mcg tablet d-mannose 500 mg capsule 1,000 mg PO BID 08/16/24 08/16/24 History diclofenac sodium 1 % topical gel 2 g topical TID PRN Knee pain 08/16/24 08/16/24 History dulaglutide 0.75 mg/0.5 mL 0.75 mg subcut WK 08/16/24 08/16/24 History subcutaneous pen injector (Trulicity) glucosamine sulf dipot 1 cap PO BID 08/16/24 08/16/24 History chlr,msm,chond 550 mg-C 30 mg-vandana 1 mg capsule (Glucosamine Chondroitin) levothyroxine 88 mcg tablet 88 mcg PO DAILY 08/16/24 08/16/24 History magnesium oxide 400 mg PO QDL 08/16/24 08/16/24 History meclizine 25 mg tablet 25 mg PO TID PRN Dizziness Or 08/16/24 08/16/24 History Vertigo metoprolol succinate 25 mg 25 mg PO PM 08/16/24 08/16/24 History tablet,extended release 24 hr mirabegron 25 mg tablet,extended 25 mg PO DAILY 08/16/24 08/16/24 History release 24 hr (Myrbetriq) nitrofurantoin 100 mg PO HS 08/16/24 08/16/24 History monohydrate/macrocrystals 100 mg capsule omeprazole 20 mg capsule,delayed 20 mg PO DAILY 08/16/24 08/16/24 History release ondansetron HCl 4 mg tablet 4 mg PO Q6H PRN Nausea And Vomiting 08/16/24 08/16/24 History polyethylene glycol 3350 17 17 g PO DAILY 08/16/24 08/16/24 History gram/dose oral powder potassium chloride 20 mEq 20 meq PO BID 08/16/24 08/16/24 History tablet,extended release(part/cryst) sennosides 8.6 mg-docusate sodium 3 tab-cap PO BID 08/16/24 08/16/24 History 50 mg tablet (Senokot-S) spironolactone 25 mg tablet 12.5 mg PO DAILY 08/16/24 08/16/24 History torsemide 100 mg tablet 100 mg PO BID 08/16/24 08/16/24 History Past Med/Surg History Problem List (Updated 08/16/24 @ 04:46 by Ward White PA-C) Urinary retention Acute on chronic combined systolic (congestive) and diastolic (congestive) heart failure Atypical chest pain Diabetes mellitus type 2, controlled Hypothyroidism (acquired) UTI (urinary tract infection) (Acute) Nausea (Acute) Anemia (Acute) Constipation (Acute) Acute metabolic encephalopathy Complicated urinary tract infection (Acute) Non-ST elevation [place] (NSTEMI) (Acute) Elevated lactic acid level (Acute) Generalized weakness (Acute) Physical deconditioning Asymptomatic bacteriuria Acute systolic heart failure due to valvular disease Acute on chronic systolic congestive heart failure Anemia (Acute) CHF (congestive heart failure) (Acute) Shortness of breath (Acute) Nocturnal hypoxia Recurrent UTI Complicated UTI (urinary tract infection) Acute on chronic combined systolic and diastolic heart failure Knee contusion Urinary tract infection due to Proteus Hip pain, acute Ambulatory dysfunction (Acute) Acute knee pain (Acute) STEVE (acute kidney injury) Chronic combined systolic (congestive) and diastolic (congestive) heart failure CHF (congestive heart failure) (Acute) Generalized weakness (Acute) UTI due to extended-spectrum beta lactamase (ESBL) producing Escherichia coli (Acute) UTI due to extended-spectrum beta lactamase (ESBL) producing Escherichia coli Chronic heart failure with preserved ejection fraction Acute on chronic heart failure with preserved ejection fraction (HFpEF) Severe aortic stenosis CHF (congestive heart failure) Cough (Acute) Acute foot pain (Acute) Fall (Acute) HTN (hypertension) Right calcaneal fracture COVID-19 (Acute) DVT prophylaxis UTI due to Klebsiella species Diabetes mellitus, type II (Chronic) Aortic stenosis, moderate (Chronic) Pacemaker (Chronic) Lymphedema (Chronic) Dyspnea on exertion (Acute) History of recurrent UTIs (Chronic) Arthritis (Chronic) LBBB (left bundle branch block) (Chronic) Vertigo (Chronic) Systolic heart failure (Chronic) Hypothyroidism (Chronic) History of knee replacement, total (Chronic) NICM (nonischemic cardiomyopathy) (Chronic) Medical History Dizziness Lactic acidemia Acute UTI Hypoxia Pneumonia Surgical History History of hysterectomy Hx of cholecystectomy Family History Other Diabetes Heart disease Hypertension Social History Smoking Status: Never smoker Second Hand Exposure: No; Do You Dip or Chew Tobacco: No; Hx Alcohol Use: No Hx Substance Use: No Preferred Language: Moroccan Communication Ability: Effective Rope Maker Required: No Beliefs That Will Affect Care: None marital status: / Current Living Situation: Alone and Other Current Living Situation Comment: w/ 24hr caregiver current occupational status: retired How many Children do You have: 1 Other Information That Helps Us Care for You: No Feels Safe at Home: Yes Safety Concerns: Feels Safe At This Time Assistive Devices: Denture - Upper, Denture - Lower, Oxygen - at Night and Walker Review of Systems Review of Systems: All systems reviewed & are unremarkable except as noted in HPI & below Physical Exam Physical Exam: General- Not in distress Head- atraumatic Eyes- PERRL. ENT- oropharynx clear Neck- supple, no JVD. Lungs- diminished b/l breath sounds, no wheezing or crackles Heart- regular rhythm; ESM murmur present, no gallop. Abdomen- normal bowel sounds, soft, nontender, no distension Extremities- b/l lower extremity edema present, no erythema seen Neuro- alert, oriented PERRL, no facial palsy; no dysarthria; moves extremities Results & Data Results & Data Vital Signs (Past 12 Hours) Vital Signs Temp Pulse Pulse Resp BP BP Pulse Ox 08/16/24 02:00 78 20 89/53 L 94 08/16/24 01:30 76 24 99/56 L 95 08/16/24 00:32 77 19 108/51 L 96 08/16/24 00:30 76 22 108/51 L 95 08/16/24 00:06 76 25 H 106/46 L 92 08/15/24 23:33 76 18 96 08/15/24 23:00 79 21 94 08/15/24 22:54 82 23 96 08/15/24 22:54 80 08/15/24 22:51 106/58 L 08/15/24 22:32 75 96 08/15/24 22:32 87 L 08/15/24 22:32 37 C 83 21 106/58 L 94 O2 Del Method O2 Flow Rate 08/16/24 02:00 Nasal Cannula 4 08/16/24 01:30 Nasal Cannula 4 08/16/24 00:32 Nasal Cannula 4 08/16/24 00:30 Nasal Cannula 4 08/16/24 00:06 Nasal Cannula 4 08/15/24 23:33 Nasal Cannula 4 08/15/24 23:00 Nasal Cannula 4 08/15/24 22:54 Nasal Cannula 4 08/15/24 22:54 08/15/24 22:51 08/15/24 22:32 Nasal Cannula 4 08/15/24 22:32 Nasal Cannula 0 08/15/24 22:32 Nasal Cannula 4 Diagnostic Findings Laboratory Results WBC 10.50 K/ul (4.8-10.8) 08/15/24 22:57 RBC 2.39 M/uL (4.20-5.40) L 08/15/24 22:57 Hgb 9.0 g/dl (12.0-16.0) L 08/15/24 22:57 Hct 27.6 % (37.0-47.0) L 08/15/24 22:57 MCV 115.5 fL (80.0-100.0) H 08/15/24 22:57 MCH 37.7 pg (25.0-34.0) H 08/15/24 22:57 MCHC 32.6 g/dL (32.0-36.0) 08/15/24 22:57 RDW Std Deviation 60.1 fL (36.4-46.3) H 08/15/24 22:57 RDW Coeff of Jon 14.4 % (11.5-14.5) 08/15/24 22:57 Plt Count 385 K/uL (130-400) 08/15/24 22:57 MPV 10.0 fL (9.4-12.4) 08/15/24 22:57 Immature Gran % (Auto) 0.5 % 08/15/24 22:57 Neut % (Auto) 83.8 % 08/15/24 22:57 Lymph % (Auto) 5.0 % 08/15/24 22:57 Rock % (Auto) 10.1 % 08/15/24 22:57 Eos % (Auto) 0.1 % 08/15/24 22:57 Baso % (Auto) 0.5 % 08/15/24 22:57 Neut # (Auto) 8.81 K/uL (1.40-6.50) H 08/15/24 22:57 Lymph # (Auto) 0.52 K/uL (1.20-3.40) L 08/15/24 22:57 Rock # (Auto) 1.06 K/uL (0.11-0.59) H 08/15/24 22:57 Eos # (Auto) 0.01 K/uL (0.00-0.50) 08/15/24 22:57 Baso # (Auto) 0.05 K/uL (0.00-0.20) 08/15/24 22:57 Immature Gran # (Auto) 0.05 K/uL (0.01-0.20) 08/15/24 22:57 Absolute Nucleated RBC 0.06 K/uL (0.00-0.12) 08/15/24 22:57 Nucleated RBC % (auto) 0.6 % 08/15/24 22:57 Polychromasia 2+ 08/15/24 22:57 Macrocytosis Present 08/15/24 22:57 PT 11.3 Seconds (9.0-12.0) 08/15/24 22:57 INR 1.0 (0.9-1.1) 08/15/24 22:57 APTT 29 Seconds (21-31) 08/15/24 22:57 PTT Ratio 1.1 08/15/24 22:57 Sodium 131 mmol/L (136-145) L 08/15/24 22:57 Potassium 4.3 mmol/L (3.5-5.1) 08/15/24 22:57 Chloride 97 mmol/L (98-107) L 08/15/24 22:57 Carbon Dioxide 25 mmol/L (21-32) 08/15/24 22:57 Anion Gap 9 (3-11) 08/15/24 22:57 BUN 45 mg/dl (6-23) H 08/15/24 22:57 Creatinine 1.91 mg/dl (0.6-1.2) H 08/15/24 22:57 Est Cr Clr Drug Dosing 23.1 ml/min 08/15/24 22:57 eGFR 24.77 08/15/24 22:57 BUN/Creatinine Ratio 23.6 (10-20) H 08/15/24 22:57 Glucose 193 mg/dl (70-99(Fasting)) H 08/15/24 22:57 Calcium 8.6 mg/dl (8.6-10.3) 08/15/24 22:57 Magnesium 2.2 mg/dl (1.7-2.4) 08/15/24 22:57 Total Bilirubin 0.6 mg/dl (0.2-1.0) 08/15/24 22:57 AST 13 U/L (13-39) 08/15/24 22:57 ALT 9 U/L (7-52) 08/15/24 22:57 Alkaline Phosphatase 77 U/L (34-104) 08/15/24 22:57 Troponin I High Sens 18.0 pg/ml (0-14) H 08/15/24 22:57 B-Natriuretic Peptide 874 pg/ml (0-100) H 08/15/24 22:57 Total Protein 6.9 gm/dl (6.0-8.3) 08/15/24 22:57 Albumin 3.9 gm/dl (3.4-5.0) 08/15/24 22:57 Globulin 3.0 gm/dl (2.5-4.0) 08/15/24 22:57 Albumin/Globulin Ratio 1.3 (0.9-2) 08/15/24 22:57 Urine Color Yellow 08/16/24 00:10 Urine Appearance Clear (Clear) 08/16/24 00:10 Urine pH 5.5 (4.5-7.5) 08/16/24 00:10 Ur Specific [place] 1.013 (1.000-1.030) 08/16/24 00:10 Urine Protein Negative (Negative) 08/16/24 00:10 Urine Glucose (UA) Negative (Negative) 08/16/24 00:10 Urine Ketones Negative (Negative) 08/16/24 00:10 Urine Blood Negative (Negative) 08/16/24 00:10 Urine Nitrite Negative (Negative) 08/16/24 00:10 Urine Bilirubin Negative (Negative) 08/16/24 00:10 Urine Urobilinogen Negative (Negative) 08/16/24 00:10 Ur Leukocyte Esterase Negative (Negative) 08/16/24 00:10 Adenovirus (PCR) Not Detected (NotDetected) 08/15/24 22:57 B. pertussis DNA (PCR) Not Detected (NotDetected) 08/15/24 22:57 B.parapertussis DNA PCR Not Detected (NotDetected) 08/15/24 22:57 C. pneumoniae DNA (PCR) Not Detected (NotDetected) 08/15/24 22:57 Coronavirus OC43 (PCR) Not Detected (NotDetected) 08/15/24 22:57 Coronavirus HKU1 (PCR) Not Detected (NotDetected) 08/15/24 22:57 Coronavirus 229E (PCR) Not Detected (NotDetected) 08/15/24 22:57 SARS-CoV-2 (PCR) Not Detected (NotDetected) 08/15/24 22:57 Coronavirus NL63 (PCR) Not Detected (NotDetected) 08/15/24 22:57 Human Metapneumovir PCR Not Detected (NotDetected) 08/15/24 22:57 Influenza Type A (PCR) Not Detected (NotDetected) 08/15/24 22:57 Influenza Type B (PCR) Not Detected (NotDetected) 08/15/24 22:57 M. pneumoniae (PCR) Not Detected (NotDetected) 08/15/24 22:57 Parainfluenza 1 (PCR) Not Detected (NotDetected) 08/15/24 22:57 Parainfluenza 2 (PCR) Not Detected (NotDetected) 08/15/24 22:57 Parainfluenza 3 (PCR) Not Detected (NotDetected) 08/15/24 22:57 Parainfluenza 4 (PCR) Not Detected (NotDetected) 08/15/24 22:57 RSV (PCR) Not Detected (NotDetected) 08/15/24 22:57 Entero/Rhino (PCR) Not Detected (NotDetected) 08/15/24 22:57 Impressions Chest X-Ray 08/15/24 23:09 Exam(s): XR CXR 1 VIEW EXAM: XR Chest, 1 View CLINICAL HISTORY: Reason for exam: Dyspnea. TECHNIQUE: Frontal view of the chest. COMPARISON: No relevant prior studies available. FINDINGS: Lungs: Unremarkable. No consolidation. Pleural space: Unremarkable. No pneumothorax. Heart: Moderate cardiomegaly, similar to previous. Mediastinum: Unremarkable. Normal mediastinal contour. Bones/joints: Unremarkable. No acute fracture. Vasculature: Prominent vascular and interstitial markings with mild central bibasilar edema, new since previous. Tubes, lines and devices: There is a pacing device on the left with leads running to the right side of the heart. Upper abdomen: There is no pneumoperitoneum under the diaphragm. IMPRESSION: 1. Moderate cardiomegaly, similar to previous. 2. There is a pacing device on the left with leads running to the right side of the heart. 3. Prominent vascular and interstitial markings with mild central bibasilar edema, new since previous. Electronically signed by: Carlos Enrique Aranda MD 08/16/24 00:34 AM ECG Additional Comments: ECG. Atrial sensed ventricular paced rhythm rate of 77. No significant change was found. Code Status & VTE Plan VTE Prophylaxis Plan VTE Prophylaxis will be ordered: Yes
--- NOTE | 2024-08-16 04:48 | Urology Consultation ---
Date of Consultation August 16, 2024 Assessment & Plan (1) Urinary retention: Patient is being admitted on the hospitalist: She is being treated for potential congestive heart failure we will defer management to the primary service From urologic perspective we recommend the following: Due to the patient's urinary tension Med[place] catheter has been placed. Would recommend maintaining Med[place] catheter for several days, particular the patient is going to receive intravenous diuretics for CHF The patient was recently treated for urinary tract infection we will therefore ensure that her urinary culture has been obtainedstatus these results to be followed for and can be treated accordingly A voiding trial can be attempted in several days after bladder rest has been employed. If the patient to be discharged home this can be arranged as an outpatient History of Present Illness Reason for Consultation: Urinary retention History of Present Illness This is an 89-year-old female who has been admitted to the hospital this evening by the [facility] service. Patient presented the hospital secondary to some shortness of breath and chest discomfort. Patient was recently admitted to the hospital secondary to urinary tract infection and she was discharged on oral Bactrim. Upon arrival to the emergency department the patient said that she had the feeling as though she needed to urinate like her bladder was full but she was unable to do so. Since arrival to the emergency department she has had a [place] catheter placed by nursing staff with relief of her urinary symptoms. Patient notes that she was not having any dysuria prior to her presentation to the emergency department. She denies any abdominal pain. She denies any back or flank pain. Since arrival to the emergency department she has had a chest x-ray that showed concern for developing CHF. A CBC revealed white blood cell count platelet count were normal. Hemoglobin and hematocrit are 9.0 and 27.6. Chemistry profile showed sodium is 131 with a potassium of 4.3. Her BUN and creatinine were 45 and 1.9. (Her baseline creatinine typically runs in the normal range). A urinalysis was not indicative of infection. A bio fire study test was negative for all viruses tested. At the time of my interview she was resting comfortably in bed and she was in no distress Allergies Allergy/AdvReac Type Severity Reaction Status Date / Time aspirin Allergy Intermediate Hives, Verified 07/04/24 21:25 shortness of breath ibuprofen Allergy Intermediate Rash, hives Verified 07/04/24 21:25 Penicillins Allergy Intermediate Rash, hives Verified 07/04/24 21:25 adhesive Allergy Mild Reddened Verified 07/04/24 21:25 and sore skin morphine AdvReac Severe BLACKED OUT Verified 07/04/24 21:25 ciprofloxacin AdvReac Intermediate DIZZINESS/H Verified 07/04/24 21:25 OARSE/DISOR IENTED sulfamethoxazole AdvReac Intermediate NAUSEA/VOMI Verified 07/04/24 21:25 [From Bactrim] TING/DIZZIN ESS trimethoprim [From Bactrim] AdvReac Intermediate NAUSEA/VOMI Verified 07/04/24 21:25 TING/DIZZIN ESS prednisone AdvReac Mild CONFUSION/BLURRED Verified 07/04/24 21:25 VISION/WEAKNESS Home Medications Medication Instructions Recorded Confirmed Type benzonatate 100 mg capsule 100 mg PO TID PRN Cough 08/16/24 08/16/24 History bisacodyl 5 mg tablet,delayed 10 mg PO BID PRN Constipation 08/16/24 08/16/24 History release (Dulcolax (bisacodyl)) cholecalciferol (vitamin D3) 25 25 mcg PO DAILY 08/16/24 08/16/24 History mcg (1,000 unit) tablet (Vitamin D3) colchicine 0.6 mg tablet 0.6 mg PO BID PRN gout attack 08/16/24 08/16/24 History conjugated estrogens 0.625 mg/gram 1 applic vaginal HS 08/16/24 08/16/24 History vaginal cream (Premarin) cyanocobalamin (vitamin B-12) 1,000 mcg PO DAILY 08/16/24 08/16/24 History 1,000 mcg tablet d-mannose 500 mg capsule 1,000 mg PO BID 08/16/24 08/16/24 History diclofenac sodium 1 % topical gel 2 g topical TID PRN Knee pain 08/16/24 08/16/24 History dulaglutide 0.75 mg/0.5 mL 0.75 mg subcut WK 08/16/24 08/16/24 History subcutaneous pen injector (Trulicity) glucosamine sulf dipot 1 cap PO BID 08/16/24 08/16/24 History chlr,msm,chond 550 mg-C 30 mg-vandana 1 mg capsule (Glucosamine Chondroitin) levothyroxine 88 mcg tablet 88 mcg PO DAILY 08/16/24 08/16/24 History magnesium oxide 400 mg PO QDL 08/16/24 08/16/24 History meclizine 25 mg tablet 25 mg PO TID PRN Dizziness Or 08/16/24 08/16/24 History Vertigo metoprolol succinate 25 mg 25 mg PO PM 08/16/24 08/16/24 History tablet,extended release 24 hr mirabegron 25 mg tablet,extended 25 mg PO DAILY 08/16/24 08/16/24 History release 24 hr (Myrbetriq) nitrofurantoin 100 mg PO HS 08/16/24 08/16/24 History monohydrate/macrocrystals 100 mg capsule omeprazole 20 mg capsule,delayed 20 mg PO DAILY 08/16/24 08/16/24 History release ondansetron HCl 4 mg tablet 4 mg PO Q6H PRN Nausea And Vomiting 08/16/24 08/16/24 History polyethylene glycol 3350 17 17 g PO DAILY 08/16/24 08/16/24 History gram/dose oral powder potassium chloride 20 mEq 20 meq PO BID 08/16/24 08/16/24 History tablet,extended release(part/cryst) sennosides 8.6 mg-docusate sodium 3 tab-cap PO BID 08/16/24 08/16/24 History 50 mg tablet (Senokot-S) spironolactone 25 mg tablet 12.5 mg PO DAILY 08/16/24 08/16/24 History torsemide 100 mg tablet 100 mg PO BID 08/16/24 08/16/24 History Patient History Medical History Dizziness Lactic acidemia Acute UTI Hypoxia Pneumonia Surgical History History of hysterectomy Hx of cholecystectomy Family History Other Diabetes Heart disease Hypertension Social History Smoking Status: Former smoker Second Hand Exposure: No; Do You Dip or Chew Tobacco: No; Hx Alcohol Use: No Hx Substance Use: No Preferred Language: Croatian Communication Ability: Effective 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 Beliefs That Will Affect Care: None marital status: / Current Living Situation: Alone Current Living Situation Comment: caregivers current occupational status: retired How many Children do You have: 1 Feels Safe at Home: Yes Assistive Devices: Glasses, Oxygen - at Night and Walker Review of Systems Review of Systems: All systems reviewed & are unremarkable except as noted in HPI & below Physical Exam Constitutional: WD/WN, vitals as above Eyes: Wears glasses ENMT: Ears: no hearing impairment and no external ear abnormality Mouth: no oropharynx abnormality Neck: trachea midline Respiratory: Breath sounds are decreased at bases. She was not using accessory muscles to aid in respiration Cardiovascular: Rate/Rhythm: regular rate and regular rhythm Gastrointestinal (Abdomen): Abdomen is rotund but soft. There is no rebound tenderness or guarding and no pain with palpation Musculoskeletal: Bilateral lower extremity edema noted Skin: no rashes Neurologic: moves all extremities Genitourinary: No CVA tenderness with percussion bilaterally. Med[place] catheter is in place which appears patent and is draining clear yellow urine Results & Data Vital Signs (Past 12 Hours) Vital Signs Temp Pulse Pulse Resp BP BP Pulse Ox 08/16/24 04:00 74 19 100/53 L 98 08/16/24 03:00 74 17 92/58 L 96 08/16/24 02:52 76 08/16/24 02:30 77 15 95/50 L 93 08/16/24 02:24 82 19 105/53 L 95 08/16/24 02:00 78 20 89/53 L 94 08/16/24 01:30 76 24 99/56 L 95 08/16/24 00:32 77 19 108/51 L 96 08/16/24 00:30 76 22 108/51 L 95 08/16/24 00:06 76 25 H 106/46 L 92 08/15/24 23:33 76 18 96 08/15/24 23:00 79 21 94 08/15/24 22:54 82 23 96 08/15/24 22:54 80 08/15/24 22:51 106/58 L 08/15/24 22:32 75 96 08/15/24 22:32 87 L 08/15/24 22:32 37 C 83 21 106/58 L 94 O2 Del Method O2 Flow Rate 08/16/24 04:00 Nasal Cannula 4 08/16/24 03:00 Nasal Cannula 4 08/16/24 02:52 08/16/24 02:30 Nasal Cannula 4 08/16/24 02:24 Nasal Cannula 4 08/16/24 02:00 Nasal Cannula 4 08/16/24 01:30 Nasal Cannula 4 08/16/24 00:32 Nasal Cannula 4 08/16/24 00:30 Nasal Cannula 4 08/16/24 00:06 Nasal Cannula 4 08/15/24 23:33 Nasal Cannula 4 08/15/24 23:00 Nasal Cannula 4 08/15/24 22:54 Nasal Cannula 4 08/15/24 22:54 08/15/24 22:51 08/15/24 22:32 Nasal Cannula 4 08/15/24 22:32 Nasal Cannula 0 08/15/24 22:32 Nasal Cannula 4 PG Care Time/CCT Total # of Minutes Spent Total Time Spent with Patient: Total time spent is greater than 50% in coordination of care (as documented) at patient's floor/unit and/or counseling patient: Coding Level of Care Code 23363 INT INP/OBS CARE 3/75MIN Diagnoses Urinary retention R33.9
[2024-08-16] MEDS ORDERED: GLUCOSE 40% GEL 15 GM TUBE PO PRN (05:30)
[2024-08-16] MEDS ORDERED: ACETAMINOPHEN 325 MG TAB PO PRN (05:30)
[2024-08-16] MEDS ORDERED: POLYETHYLENE (MIRALAX) 17 GM PACK PO PRN (05:30)
[2024-08-16] MEDS ORDERED: CARBOHYDRATES FOR HYPOGLYCEMIA PO PRN (05:30)
[2024-08-16] MEDS ORDERED: GLUCAGON FOR INJ 1 MG VIAL SQ PRN (05:30)
[2024-08-16] MEDS ORDERED: GLUCOSE 10 TAB/TUBE PO PRN (05:30)
[2024-08-16] MEDS ORDERED: BENZONATATE 100 MG CAPSULE PO PRN (05:30)
[2024-08-16] MEDS ORDERED: DEXTROSE 50% 50 ML SYRINGE IV PRN (05:30)
[2024-08-16] MEDS ORDERED: guaiFENesin SUGAR FREE 200 MG/10 ML UDC PO PRN (05:30)
[2024-08-16] MEDS ORDERED: NITROGLYCERIN SL 0.4 MG/TAB TAB SL PRN (05:30)
[2024-08-16 06:24] LABS: Basophils # (auto) 0.03 K/uL (0.00-0.20); Basophils % (auto) 0.4 %; Eosinophils # (auto) 0.02 K/uL (0.00-0.50); Eosinophils % (auto) 0.3 %; Hemoglobin 8.5 g/dl (12.0-16.0); Immature Granulocytes # (auto) 0.03 K/uL (0.01-0.20); Immature Granulocytes % (auto) 0.4 %; Lymphocytes # (auto) 0.78 K/uL (1.20-3.40); Lymphocytes % (auto) 10.1 %; Mean Corpuscular Hemoglobin 37.9 pg (25.0-34.0); Mean Corpuscular Hgb Conc 32.7 g/dL (32.0-36.0); Mean Corpuscular Volume 116.1 fL (80.0-100.0); Mean Platelet Volume 10.1 fL (9.4-12.4); Monocytes # (auto) 0.99 K/uL (0.11-0.59); Monocytes % (auto) 12.8 %; Neutrophils # (auto) 5.88 K/uL (1.40-6.50); Nucleated RBC # (auto) 0.04 K/uL (0.00-0.12); Nucleated RBC % (auto) 0.5 %; Platelet Count 336 K/uL (130-400); RDW Coefficient of Variation 14.5 % (11.5-14.5); RDW Standard Deviation 59.4 fL (36.4-46.3); Red Blood Count 2.24 M/uL (4.20-5.40); White Blood Count 7.73 K/ul (4.8-10.8)
[2024-08-16] MEDS: LEVOTHYROXINE SODIUM 88 MCG TABLET PO SCH (06:40)
[2024-08-16 06:41] LABS: BUN Creatinine Ratio 26.6 (10-20); Calcium 8.4 mg/dl (8.6-10.3); Creatinine Clr Calc Pharmacy 25.4 ml/min; Magnesium 2.3 mg/dl (1.7-2.4); Potassium 4.6 mmol/L (3.5-5.1)
[2024-08-16 06:47] LABS: Troponin I High Sensitivity 20.2 pg/ml (0-14)
[2024-08-16 07:26] LABS: Macrocytosis Present; Stomatocytes 1+
[2024-08-16] MEDS: CHOLECALCIFEROL 25 MCG (1000 UNITS) TAB PO SCH (08:07)
[2024-08-16] MEDS: CYANOCOBALAMIN (B-12) 500 MCG TABLET PO SCH (08:08)
[2024-08-16] MEDS: INSULIN ASPART PER UNIT CHARGE SC SCH (08:10)
[2024-08-16] MEDS: DOCUSATE SODIUM/SENNA 50/8.6MG TAB PO SCH (08:10)
[2024-08-16] MEDS: PANTOprazole 40 MG TAB PO SCH (08:11)
[2024-08-16] MEDS: MECLIZINE HCL 25 MG TAB PO PRN (08:11)
[2024-08-16] MEDS: POLYETHYLENE (MIRALAX) 17 GM PACK PO SCH (08:11)
[2024-08-16] MEDS: POTASSIUM CHLORIDE CRTAB 20 MEQ TABCR PO SCH (08:11)
[2024-08-16] MEDS ORDERED: SPIRONOLACTONE 12.5 MG TAB PO SCH (09:00)
[2024-08-16] MEDS ORDERED: NON-FORMULARY MEDICATION (Glucos Sul 2kcl-Msm-Chond-C-Mn [Glucosamine Chondroitin] 550-30- PO SCH (09:00)
--- NOTE | 2024-08-16 09:01 | Cardiology Consultation ---
Date of Consultation August 16, 2024 Assessment & Plan (1) Acute on chronic combined systolic (congestive) and diastolic (congestive) heart failure: (2) Urinary retention: (3) STEVE (acute kidney injury): (4) UTI (urinary tract infection): Plan Patient admitted for recurrent CHF symptoms, with worsening UTI and urinary retentions symptoms likely contributing to worsening volume status, and causing STEVE with creatinine of 1.9. Volume status improving after several doses of IV lasix. Mild hypotension noted this morning. Hold additional furosemide IV today. She received one dose IV lasix this morning. Spironolactone on hold. Monitor I+O's. Monitor renal function and electrolytes Creatinine improving this morning to 1.7. Urology consulted for urinary retention/recurrent UTI Urine culture pending Continue metoprolol. Underlying known severe . Conservative med management recommended. Previously deemed not a candidate for TAVR due to comorbidities and poor functional status. Case discussed with Dr. Boucher I spent a total of 45 minutes on the date of service in preparation, delivery, and documentation of the care provided to this patient, excluding any time spent in the performance of separately billed services. Marcela Evans PA-C Department of Cardiology, [facility] This chart was completed in part utilizing Speech Voice Recognition Software. Grammatical errors, random word insertions, pronoun errors, and incomplete sentences are an occasional consequence of this system due to software limitations, ambient noise, and hardware issues. Any formal questions or concerns about the content, text, or information contained within the body of this dictation should be directly addressed to the provider for clarification. Supervising Physician Co-Signing Physician Notes Patient was seen and personally examined. Chart and telemetry reviewed. Prior admission histories noted. Care and management as well outlined by advanced provider was personally discussed and endorsed. Patient with recurrent heart failure and urinary obstruction. Now complains of only bowel complaints and irritation at [place] catheter. Plan as outlined however overall prognosis poor given severe valvular heart disease and limited options for intervention. Hopefully by treating urinary obstruction may aid in future management I spent a total of 30 minutes on the date of service in preparation, delivery, and documentation of the care provided to this patient, excluding any time spent in the performance of separately billed services. History of Present Illness Reason for Consultation: CHF; Requesting Physician: Leonarda Hospitalist Attending Physician: Dr. Boucher History of Present Illness 89-year-old female with PMHx significant for chronic systolic and diastolic CHF, severe , status post biventricular pacemaker, HTN, mild nonobstructive CAD (CATH 2019), chronic lymphedema, type 2 diabetes mellitus, CKD stage III, hypothyroidism, and history of recurrent ESBL UTI. Multiple admission in the past few months for acute decompensated CHF secondary to severe aortic stenosis and UTI's. Previously seen by valve clinic (10/22/23) for evaluation of severe . She was deemed not a candidate for percutaneous or surgical therapies due to extremely limited functional capacity. Admitted 08/09-07/31 for recurrent UTI along with CHF and atypical chest pain. Symptoms improved with diuresis. Transitioned to oral torsemide 80 mg BID on discharge. Over the last few days, patients oral torsemide was increased to 100 mg BID without improvement and once again developed worsening SOB/fluid status and UTI symptoms and urinary retention. Urology consulted. [place]ellin placed. started on IV lasix 40 mg IV BID. At time of consult, patient resting in bed comfortably. However she reports feeling "miserable" but would not elaborate on her symptoms. Weight up about 5 kg since discharge on 08/11. Allergies Allergy/AdvReac Type Severity Reaction Status Date / Time aspirin Allergy Intermediate Hives, Verified 07/04/24 21:25 shortness of breath ibuprofen Allergy Intermediate Rash, hives Verified 07/04/24 21:25 Penicillins Allergy Intermediate Rash, hives Verified 07/04/24 21:25 adhesive Allergy Mild Reddened Verified 07/04/24 21:25 and sore skin morphine AdvReac Severe BLACKED OUT Verified 07/04/24 21:25 ciprofloxacin AdvReac Intermediate DIZZINESS/H Verified 07/04/24 21:25 OARSE/DISOR IENTED sulfamethoxazole AdvReac Intermediate NAUSEA/VOMI Verified 07/04/24 21:25 [From Bactrim] TING/DIZZIN ESS trimethoprim [From Bactrim] AdvReac Intermediate NAUSEA/VOMI Verified 07/04/24 21:25 TING/DIZZIN ESS prednisone AdvReac Mild CONFUSION/BLURRED Verified 07/04/24 21:25 VISION/WEAKNESS Home Medications Medication Instructions Recorded Confirmed Type benzonatate 100 mg capsule 100 mg PO TID PRN Cough 08/16/24 08/16/24 History bisacodyl 5 mg tablet,delayed 10 mg PO BID PRN Constipation 08/16/24 08/16/24 History release (Dulcolax (bisacodyl)) cholecalciferol (vitamin D3) 25 25 mcg PO DAILY 08/16/24 08/16/24 History mcg (1,000 unit) tablet (Vitamin D3) colchicine 0.6 mg tablet 0.6 mg PO BID PRN gout attack 08/16/24 08/16/24 History conjugated estrogens 0.625 mg/gram 1 applic vaginal HS 08/16/24 08/16/24 History vaginal cream (Premarin) cyanocobalamin (vitamin B-12) 1,000 mcg PO DAILY 08/16/24 08/16/24 History 1,000 mcg tablet d-mannose 500 mg capsule 1,000 mg PO BID 08/16/24 08/16/24 History diclofenac sodium 1 % topical gel 2 g topical TID PRN Knee pain 08/16/24 08/16/24 History dulaglutide 0.75 mg/0.5 mL 0.75 mg subcut WK 08/16/24 08/16/24 History subcutaneous pen injector (Trulicity) glucosamine sulf dipot 1 cap PO BID 08/16/24 08/16/24 History chlr,msm,chond 550 mg-C 30 mg-vandana 1 mg capsule (Glucosamine Chondroitin) levothyroxine 88 mcg tablet 88 mcg PO DAILY 08/16/24 08/16/24 History magnesium oxide 400 mg PO QDL 08/16/24 08/16/24 History meclizine 25 mg tablet 25 mg PO TID PRN Dizziness Or 08/16/24 08/16/24 History Vertigo metoprolol succinate 25 mg 25 mg PO PM 08/16/24 08/16/24 History tablet,extended release 24 hr mirabegron 25 mg tablet,extended 25 mg PO DAILY 08/16/24 08/16/24 History release 24 hr (Myrbetriq) nitrofurantoin 100 mg PO HS 08/16/24 08/16/24 History monohydrate/macrocrystals 100 mg capsule omeprazole 20 mg capsule,delayed 20 mg PO DAILY 08/16/24 08/16/24 History release ondansetron HCl 4 mg tablet 4 mg PO Q6H PRN Nausea And Vomiting 08/16/24 08/16/24 History polyethylene glycol 3350 17 17 g PO DAILY 08/16/24 08/16/24 History gram/dose oral powder potassium chloride 20 mEq 20 meq PO BID 08/16/24 08/16/24 History tablet,extended release(part/cryst) sennosides 8.6 mg-docusate sodium 3 tab-cap PO BID 08/16/24 08/16/24 History 50 mg tablet (Senokot-S) spironolactone 25 mg tablet 12.5 mg PO DAILY 08/16/24 08/16/24 History torsemide 100 mg tablet 100 mg PO BID 08/16/24 08/16/24 History Patient History Medical History Dizziness Lactic acidemia Acute UTI Hypoxia Pneumonia Surgical History History of hysterectomy Hx of cholecystectomy Family History Other Diabetes Heart disease Hypertension Social History Smoking Status: Never smoker Second Hand Exposure: No; Do You Dip or Chew Tobacco: No; Hx Alcohol Use: No Hx Substance Use: No Preferred Language: Lao Communication Ability: Effective Sole Assessor Required: No Beliefs That Will Affect Care: None marital status: / Current Living Situation: Alone and Other Current Living Situation Comment: w/ 24hr caregiver current occupational status: retired How many Children do You have: 1 Other Information That Helps Us Care for You: No Feels Safe at Home: Yes Safety Concerns: Feels Safe At This Time Assistive Devices: Denture - Upper, Denture - Lower, Oxygen - at Night and Walker Review of Systems Review of Systems: All systems reviewed & are unremarkable except as noted in HPI & below Physical Exam Constitutional: WD/WN, vitals as above + morbidly obese; no acute distress Respiratory: normal respiratory effort; no labored breathing Auscultation: + diminished lung sounds; no rales and no rhonchi Cardiovascular: Rate/Rhythm: regular rate and regular rhythm Heart Sounds: + murmur (III/ systolic murmur LSB) Extremities: + edema (Chronic lymphedema noted b/l; 2+ ) Neurologic: PERRL, EOMI, accommodation nl, no face palsy, no dysarthria Results & Data Vital Signs (Past 12 Hours) Vital Signs Temp Pulse Pulse Resp BP BP Pulse Ox 08/16/24 07:12 36.8 C 71 19 101/58 L 97 08/16/24 05:55 36.7 C 72 18 97/62 L 93 08/16/24 05:34 08/16/24 05:30 08/16/24 05:03 81 08/16/24 04:40 81 20 97/55 L 94 08/16/24 04:00 74 19 100/53 L 98 08/16/24 03:00 74 17 92/58 L 96 08/16/24 02:52 76 08/16/24 02:30 77 15 95/50 L 93 08/16/24 02:24 82 19 105/53 L 95 08/16/24 02:00 78 20 89/53 L 94 08/16/24 01:30 76 24 99/56 L 95 08/16/24 00:32 77 19 108/51 L 96 08/16/24 00:30 76 22 108/51 L 95 08/16/24 00:06 76 25 H 106/46 L 92 08/15/24 23:33 76 18 96 08/15/24 23:00 79 21 94 08/15/24 22:54 82 23 96 08/15/24 22:54 80 08/15/24 22:51 106/58 L 08/15/24 22:32 75 96 08/15/24 22:32 87 L 08/15/24 22:32 37 C 83 21 106/58 L 94 Pulse Ox O2 Del Method O2 Del Method O2 Flow Rate O2 Flow Rate 08/16/24 07:12 Nasal Cannula 4 08/16/24 05:55 Nasal Cannula 4 08/16/24 05:34 Nasal Cannula 4 08/16/24 05:30 94 Nasal Cannula 4 08/16/24 05:03 08/16/24 04:40 Nasal Cannula 4 08/16/24 04:00 Nasal Cannula 4 08/16/24 03:00 Nasal Cannula 4 08/16/24 02:52 08/16/24 02:30 Nasal Cannula 4 08/16/24 02:24 Nasal Cannula 4 08/16/24 02:00 Nasal Cannula 4 08/16/24 01:30 Nasal Cannula 4 08/16/24 00:32 Nasal Cannula 4 08/16/24 00:30 Nasal Cannula 4 08/16/24 00:06 Nasal Cannula 4 08/15/24 23:33 Nasal Cannula 4 08/15/24 23:00 Nasal Cannula 4 08/15/24 22:54 Nasal Cannula 4 08/15/24 22:54 08/15/24 22:51 08/15/24 22:32 Nasal Cannula 4 08/15/24 22:32 Nasal Cannula 0 08/15/24 22:32 Nasal Cannula 4 Laboratory Results Cardiac Enzymes 08/15/24 08/16/24 Range/Units 22:57 05:50 AST 13 (13-39) U/L Troponin I High Sens 18.0 H 20.2 H (0-14) pg/ml B-Natriuretic Peptide 874 H (0-100) pg/ml Coagulation 08/15/24 Range/Units 22:57 PT 11.3 (9.0-12.0) Seconds APTT 29 (21-31) Seconds B-Natriuretic Peptide 874 H (0-100) pg/ml CBC 08/15/24 08/16/24 Range/Units 22:57 05:50 WBC 10.50 7.73 (4.8-10.8) K/ul RBC 2.39 L 2.24 L (4.20-5.40) M/uL Hgb 9.0 L 8.5 L (12.0-16.0) g/dl Hct 27.6 L 26.0 L (37.0-47.0) % Plt Count 385 336 (130-400) K/uL Neut # (Auto) 8.81 H 5.88 (1.40-6.50) K/uL Lymph # (Auto) 0.52 L 0.78 L (1.20-3.40) K/uL Whitfield # (Auto) 1.06 H 0.99 H (0.11-0.59) K/uL Eos # (Auto) 0.01 0.02 (0.00-0.50) K/uL Baso # (Auto) 0.05 0.03 (0.00-0.20) K/uL Comprehensive Metabolic Panel 08/15/24 08/16/24 Range/Units 22:57 05:50 Sodium 131 L 134 L (136-145) mmol/L Potassium 4.3 4.6 (3.5-5.1) mmol/L Chloride 97 L 99 (98-107) mmol/L Carbon Dioxide 25 27 (21-32) mmol/L BUN 45 H 46 H (6-23) mg/dl Creatinine 1.91 H 1.73 H (0.6-1.2) mg/dl Glucose 193 H 165 H (70-99(Fasting)) mg/dl Calcium 8.6 8.4 L (8.6-10.3) mg/dl AST 13 (13-39) U/L ALT 9 (7-52) U/L Alkaline Phosphatase 77 (34-104) U/L Total Protein 6.9 (6.0-8.3) gm/dl Albumin 3.9 (3.4-5.0) gm/dl Intake and Output 08/15/24 08/16/24 08/16/24 22:59 06:59 14:59 Output Total 1550 / 1550 Balance -1550 / -1550 Output: Urine Amount (Catheter) 1550 / 1550 [place]/Indwelling 1550 / 1550 Other: Weight 108.2 kg 107.2 kg Weight Measurement Method Built in [facility] Built in [facility] Diagnostic Findings Telemetry reviewed: atrial sensed, ventricular paced rhythm. Occ PVC EKG reviewed from 08/15/24: Atrial sensed, ventricular paced No change from prior EKG Chest X-Ray 08/15/24 23:09 Exam(s): XR CXR 1 VIEW EXAM: XR Chest, 1 View CLINICAL HISTORY: Reason for exam: Dyspnea. TECHNIQUE: Frontal view of the chest. COMPARISON: No relevant prior studies available. FINDINGS: Lungs: Unremarkable. No consolidation. Pleural space: Unremarkable. No pneumothorax. Heart: Moderate cardiomegaly, similar to previous. Mediastinum: Unremarkable. Normal mediastinal contour. Bones/joints: Unremarkable. No acute fracture. Vasculature: Prominent vascular and interstitial markings with mild central bibasilar edema, new since previous. Tubes, lines and devices: There is a pacing device on the left with leads running to the right side of the heart. Upper abdomen: There is no pneumoperitoneum under the diaphragm. IMPRESSION: 1. Moderate cardiomegaly, similar to previous. 2. There is a pacing device on the left with leads running to the right side of the heart. 3. Prominent vascular and interstitial markings with mild central bibasilar edema, new since previous. Electronically signed by: Carlos Enrique Aranda MD 08/16/24 00:34 AM Venous Doppler Study 08/16/24 05:30 BILATERAL LOWER EXTREMITY VENOUS DOPPLER CLINICAL HISTORY: Bilateral lower extremity edema. COMPARISON STUDY: Bilateral lower extremity venous Doppler ultrasound July 21, 2024. TECHNIQUE: Sonography of the deep venous system of the bilateral lower extremities was performed. Compression and augmentation were evaluated. FINDINGS: The bilateral common femoral, superficial femoral and popliteal veins were compressible. Augmentation was normal. Flow was shown within the deep calf vessels. IMPRESSION: No evidence of deep venous thrombus within the bilateral lower extremities. ACT 112: Negative or not required by law. Electronically signed by: Bruce Barba M.D. 08/16/2024 9:20 AM Prior echo report reviewed dated 06/10/24: LVEF at 45-50% moderate concentric LVH Base and mid inferior wall is hypokinetic Base posterior wall is hypokinetic severe calcific aortic stenosis Mild AI Medications Administered Current Inpatient Medications Acetaminophen (Acetaminophen 325 Mg Tab) 650 mg PO Q4H PRN PRN Reason: Pain or Fever Stop: 09/15/24 05:29 Benzonatate (Benzonatate 100 Mg Capsule) 100 mg PO TID PRN PRN Reason: Cough Stop: 09/15/24 05:29 Bisacodyl (Bisacodyl 5 Mg Tabec) 10 mg PO BID PRN PRN Reason: Constipation Stop: 09/15/24 05:29 Cyanocobalamin (Cyanocobalamin (B-12) 500 Mcg Tablet) 1,000 mcg PO DAILY BRENT Stop: 09/15/24 08:59 Last Admin: 08/16/24 08:08 Dose: 1,000 mcg Dextrose (Dextrose 50% 50 Ml Syringe) 25 - 50 ml IV UD PRN; Protocol PRN Reason: Hypoglycemia Protocol Stop: 09/15/24 05:29 Diclofenac Sodium (Diclofenac Sod 1% Gel 100 Gm Tube) 2 gm EXT TID PRN; Protocol PRN Reason: Knee pain Stop: 09/15/24 05:29 Estrogens Conjugated (Premarin Vag Crm 14 Appln/30 Gm Tube) 1 appln PV HS BRENT Stop: 09/15/24 20:59 Furosemide (Furosemide 40 Mg/4 Ml Vial) 40 mg IV BID BRENT Stop: 09/15/24 08:59 Last Admin: 08/16/24 09:15 Dose: 40 mg Glucagon (Glucagon For Inj 1 Mg Vial) 1 mg SQ UD PRN; Protocol PRN Reason: Hypoglycemia Protocol Stop: 09/15/24 05:29 Glucose (Glucose 40% Gel 15 Gm Tube) 15 - 30 gm PO UD PRN; Protocol PRN Reason: Hypoglycemia Protocol Stop: 09/15/24 05:29 Glucose (Glucose 10 Tab/Tube) 4 - 8 tab PO UD PRN; Protocol PRN Reason: Hypoglycemia Protocol Stop: 09/15/24 05:29 Guaifenesin (Guaifenesin Sugar Free 200 Mg/10 Ml Udc) 200 mg PO Q6H PRN PRN Reason: Cough Stop: 09/15/24 05:29 Heparin Sodium (Porcine) (Heparin Sod 5,000 Unit/0.5 Ml Vial) 7,500 units SQ Q12 BRENT Stop: 09/15/24 08:59 Last Admin: 08/16/24 10:02 Dose: 7,500 units Insulin Aspart (Insulin Aspart Per Unit Charge) 0 units SC ACHS BRENT Stop: 09/15/24 07:29 Last Admin: 08/16/24 08:10 Dose: 1 units Levothyroxine Sodium (Levothyroxine Sodium 88 Mcg Tablet) 88 mcg PO DAILYBB BRENT Stop: 09/15/24 06:29 Last Admin: 08/16/24 06:40 Dose: 88 mcg Magnesium Oxide (Magnesium Oxide 400 Mg Tab) 400 mg PO QDL [facility] Stop: 09/15/24 11:29 Meclizine HCl (Meclizine Hcl 25 Mg Tab) 25 mg PO TID PRN PRN Reason: Dizziness Or Vertigo Stop: 09/15/24 05:29 Last Admin: 08/16/24 08:11 Dose: 25 mg Metoprolol Succinate (Metoprolol Succ 25mg Ext Rel Tab) 25 mg PO PM [facility] Stop: 09/15/24 20:59 Miscellaneous (Carbohydrates For Hypoglycemia ) 15 - 30 gm PO UD PRN PRN Reason: Hypoglycemia Protocol Stop: 09/15/24 05:29 Nitroglycerin (Nitroglycerin Sl 0.4 Mg/Tab Tab) 0.4 mg SL Q5M PRN PRN Reason: Chest Pain Stop: 09/15/24 05:29 Pantoprazole Sodium (Pantoprazole 40 Mg Tab) 40 mg PO DAILY BRENT Stop: 09/15/24 08:59 Last Admin: 08/16/24 08:11 Dose: 40 mg Polyethylene Glycol (Polyethylene (Miralax) 17 Gm Pack) 17 gm PO DAILY PRN PRN Reason: Constipation Stop: 09/15/24 05:29 Polyethylene Glycol (Polyethylene (Miralax) 17 Gm Pack) 17 gm PO DAILY BRENT Stop: 09/15/24 08:59 Last Admin: 08/16/24 08:11 Dose: Not Given Potassium Chloride (Potassium Chloride Crtab 20 Meq Tabcr) 20 meq PO BID BRENT Stop: 09/15/24 08:59 Last Admin: 08/16/24 08:11 Dose: 20 meq Senna/Docusate Sodium (Docusate Sodium/Senna 50/8.6mg Tab) 3 tab PO BID BRENT Stop: 09/15/24 08:59 Last Admin: 08/16/24 08:10 Dose: 3 tab Vibegron (Vibegron 75 Mg Tab) 75 mg PO DAILY BRENT Stop: 09/15/24 08:59 Last Admin: 08/16/24 10:05 Dose: 75 mg Vitamin D (Cholecalciferol 25 Mcg (1000 Units) Tab) 25 mcg PO DAILY BRENT Stop: 09/15/24 08:59 Last Admin: 08/16/24 08:07 Dose: 25 mcg
[2024-08-16] MEDS: FUROSEMIDE 40 MG/4 ML VIAL IV SCH (09:15)
--- NOTE | 2024-08-16 09:21 | Ultrasound Report ---
BILATERAL LOWER EXTREMITY VENOUS DOPPLER CLINICAL HISTORY: Bilateral lower extremity edema. COMPARISON STUDY: Bilateral lower extremity venous Doppler ultrasound July 21, 2024. TECHNIQUE: Sonography of the deep venous system of the bilateral lower extremities was performed. Co mpression and augmentation were evaluated. FINDINGS: The bilateral common femoral, superficial femoral and popliteal veins were compressible. A ugmentation was normal. Flow was shown within the deep calf vessels. IMPRESSION: No evidence of deep venous thrombus within the bilateral lower extremities. ACT 112: Negative or not required by law. Electronically signed by: Bruce Barba M.D. 08/16/2024 9:20 AM
--- NOTE | 2024-08-16 09:34 | Hospitalist Progress Note ---
Date of Service August 16, 2024 Assessment & Plan (1) Acute on chronic combined systolic (congestive) and diastolic (congestive) heart failure: Plan: 89-year-old female with past medical history significant for type 2 diabetes, CKD stage III, hypothyroidism, hyperlipidemia, diabetic retinopathy, first- degree atrioventricular block, chronic combined systolic and diastolic CHF, severe aortic stenosis, history of CAD,biventricular cardiac pacemaker, GERD, morbid obesity, recurrent UTI, lymphedema of both lower extremities, benign paroxysmal vertigo, anemia, aspirin allergy, ACEI/ARB contraindicated, ESBL E. 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, ventral hernia without obstruction, ambulatory dysfunction and ambulates with a rollator walker and lives alone at home and has 24hrs caregivers and daughter lives close by was brought in because of weakness, shortness of breath and urinary retention. Patient was recently admitted for constipation , end of June. She was again admitted on 08/08/2024 and discharged on 08/11/2024 for UTI and also acute on chronic combined systolic and diastolic CHF. She had ESBL UTI, after discussing with ID was discharged on Bactrim. She is taking torsemide 100 mg twice daily. Cardiology on consult Patient reports history of shortness of breath and bilateral lower extremity edema Currently on torsemide 100 mg twice daily without minimal symptom improvement Recent echo from May shows EF of 45 to 50% with moderate concentric LVH, severe calcific . Previously evaluated for TAVR; deemed not a surgical candidate Chest x-ray shows moderate cardiomegaly with pulmonary edema hold lasix for now as patient's blood pressure if lower side. Continue spironolactone Daily weights and I's and O's Telemetry Cardiology on consult STEVE on CKD stage III Acute Urinary Retention s/p [place] Baseline around 0.9-1; presented with creatinine of 1.9 Had urinary retention Status post [place]in Maintain Medellin for 7 to 10 days and trial of void Cough Respiratory BioFire negative procal negative Possible from CHF Mild elevation troponin Demand ischemia High sensitivity troponin 18 with no delta difference Hyponatremia Sodium 131 on admission improved Recent ESBL UTI urine analysis doesn't suggest infection History of CAD On beta-barry, continue Hypothyroidism On Synthyroid, continue Bilateral lower EXTR lymphedema Venous duplex doesn't show DVT GERD On omeprazole, continue Chronic anemia Hb around 8 to 9, monitor History of constipation Continue stool softeners Ambulatory dysfunction PT OT when stable DVT prophylaxis Heparin subcu Disposition Telemetry . Time spent evaluating patient, direct bedside care, chart review, placing orders, interpretation of diagnostic studies, discussion with consultants, patient, and family members, as well as other required patient management activities is 50 minutes Please note the above document was generated using voice recognition software. It may contain grammatical, syntax or spelling errors. Any formal questions or concerns about the content, text or information contained within the body of this dictation should be directly addressed to the provider for clarification Admission and Anticipated Discharge Date Admission Date: August 16, 2024 Subjective Patient seen and examined at bedside She is comfortable; not in distress [place] catheter in place draining clear urine Review of Systems Review of Systems: All systems reviewed & are unremarkable except as noted in Subjective Physical Exam Physical Exam: General- Not in distress Head- atraumatic Eyes- PERRL. ENT- oropharynx clear Neck- supple, no JVD. Lungs- diminished b/l breath sounds, no wheezing or crackles Heart- regular rhythm; ESM murmur present, no gallop. Abdomen- normal bowel sounds, soft, nontender, no distension Extremities- b/l lower extremity edema present, no erythema seen Neuro- alert, oriented PERRL, no facial palsy; no dysarthria; moves extremities Results & Data Results & Data Vital Signs (Past 12 Hours) Vital Signs Temp Pulse Pulse Resp BP BP Pulse Ox 08/16/24 07:12 36.8 C 71 19 101/58 L 97 08/16/24 05:55 36.7 C 72 18 97/62 L 93 08/16/24 05:34 08/16/24 05:30 08/16/24 05:03 81 08/16/24 04:40 81 20 97/55 L 94 08/16/24 04:00 74 19 100/53 L 98 08/16/24 03:00 74 17 92/58 L 96 08/16/24 02:52 76 08/16/24 02:30 77 15 95/50 L 93 08/16/24 02:24 82 19 105/53 L 95 08/16/24 02:00 78 20 89/53 L 94 08/16/24 01:30 76 24 99/56 L 95 08/16/24 00:32 77 19 108/51 L 96 08/16/24 00:30 76 22 108/51 L 95 08/16/24 00:06 76 25 H 106/46 L 92 08/15/24 23:33 76 18 96 08/15/24 23:00 79 21 94 08/15/24 22:54 82 23 96 08/15/24 22:54 80 08/15/24 22:51 106/58 L 08/15/24 22:32 75 96 08/15/24 22:32 87 L 08/15/24 22:32 37 C 83 21 106/58 L 94 Pulse Ox O2 Del Method O2 Del Method O2 Flow Rate O2 Flow Rate 08/16/24 07:12 Nasal Cannula 4 08/16/24 05:55 Nasal Cannula 4 08/16/24 05:34 Nasal Cannula 4 08/16/24 05:30 94 Nasal Cannula 4 08/16/24 05:03 08/16/24 04:40 Nasal Cannula 4 08/16/24 04:00 Nasal Cannula 4 08/16/24 03:00 Nasal Cannula 4 08/16/24 02:52 08/16/24 02:30 Nasal Cannula 4 08/16/24 02:24 Nasal Cannula 4 08/16/24 02:00 Nasal Cannula 4 08/16/24 01:30 Nasal Cannula 4 08/16/24 00:32 Nasal Cannula 4 08/16/24 00:30 Nasal Cannula 4 08/16/24 00:06 Nasal Cannula 4 08/15/24 23:33 Nasal Cannula 4 08/15/24 23:00 Nasal Cannula 4 08/15/24 22:54 Nasal Cannula 4 08/15/24 22:54 08/15/24 22:51 08/15/24 22:32 Nasal Cannula 4 08/15/24 22:32 Nasal Cannula 0 08/15/24 22:32 Nasal Cannula 4
[2024-08-16] MEDS: HEPARIN SOD 5,000 UNIT/0.5 ML VIAL SQ SCH (10:02)
[2024-08-16] MEDS: VIBEGRON 75 MG TAB PO SCH (10:05)
--- NOTE | 2024-08-16 11:30 | Electrocardiogram Report ---
Test Reason : Blood Pressure : */* mmHG Vent. Rate : 77 BPM Atrial Rate : 77 BPM P-R Int : 162 ms QRS Dur : 162 ms QT Int : 442 ms P-R-T Axes : 16 -72 107 degrees QTcB Int : 500 ms Atrial-sensed ventricular-paced rhythm Abnormal ECG When compared with ECG of 09-Aug-2024 20:57, No significant change was found Confirmed by Bryan Castaneda ([id number]) on 08/16/2024 11:29:49 AM Referred By: REFERRED SELF Confirmed By: Bryan Castaneda
[2024-08-16] MEDS: MAGNESIUM OXIDE 400 MG TAB PO SCH (11:48)
[2024-08-16] MEDS: METOPROLOL SUCC 25MG EXT REL TAB PO SCH (20:30)
[2024-08-16] MEDS: PREMARIN VAG CRM 14 APPLN/30 GM TUBE PV SCH (20:41)
[2024-08-17 07:22] LABS: Basophils # (auto) 0.03 K/uL (0.00-0.20); Basophils % (auto) 0.5 %; Eosinophils # (auto) 0.04 K/uL (0.00-0.50); Eosinophils % (auto) 0.6 %; Hematocrit (blood only) 25.2 % (37.0-47.0); Hemoglobin 8.2 g/dl (12.0-16.0); Immature Granulocytes # (auto) 0.02 K/uL (0.01-0.20); Immature Granulocytes % (auto) 0.3 %; Lymphocytes # (auto) 1.81 K/uL (1.20-3.40); Mean Corpuscular Hemoglobin 38.9 pg (25.0-34.0); Mean Corpuscular Hgb Conc 32.5 g/dL (32.0-36.0); Mean Corpuscular Volume 119.4 fL (80.0-100.0); Mean Platelet Volume 9.9 fL (9.4-12.4); Monocytes # (auto) 1.07 K/uL (0.11-0.59); Monocytes % (auto) 16.5 %; Neutrophils % (auto) 54.1 %; Nucleated RBC # (auto) 0.05 K/uL (0.00-0.12); Nucleated RBC % (auto) 0.8 %; Platelet Count 322 K/uL (130-400); RDW Coefficient of Variation 14.6 % (11.5-14.5); RDW Standard Deviation 61.6 fL (36.4-46.3); Red Blood Count 2.11 M/uL (4.20-5.40); White Blood Count 6.47 K/ul (4.8-10.8)
[2024-08-17 07:44] LABS: BUN Creatinine Ratio 33.8 (10-20); Calcium 8.4 mg/dl (8.6-10.3); Creatinine Clr Calc Pharmacy 30.7 ml/min; Potassium 4.5 mmol/L (3.5-5.1)
[2024-08-17 08:34] LABS: Microcytosis Present
--- NOTE | 2024-08-17 10:25 | Hospitalist Progress Note ---
Date of Service August 17, 2024 Assessment & Plan (1) Acute on chronic combined systolic (congestive) and diastolic (congestive) heart failure: Plan: Patient is a 89-year-old female with past medical history significant for type 2 diabetes, CKD stage III, hypothyroidism, hyperlipidemia, diabetic retinopathy, first-degree atrioventricular block, chronic combined systolic and diastolic CHF, severe aortic stenosis, history of CAD,biventricular cardiac pacemaker, GERD, morbid obesity, recurrent UTI, lymphedema of both lower extremities, benign paroxysmal vertigo, anemia, aspirin allergy, ACEI/ARB contraindicated, ESBL E. 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, ventral hernia without obstruction, ambulatory dysfunction and ambulates with a rollator walker and lives alone at home and has 24hrs caregivers and daughter lives close by was brought in because of weakness, shortness of breath and urinary retention. Patient was recently admitted for constipation , end of June. She was again admitted on 08/08/2024 and discharged on 08/11/2024 for UTI and also acute on chronic combined systolic and diastolic CHF. She had ESBL UTI, after discussing with ID was discharged on Bactrim. She is taking torsemide 100 mg twice daily. Patient reports history of shortness of breath and bilateral lower extremity edema Currently on torsemide 100 mg twice daily Recent echo from May shows EF of 45 to 50% with moderate concentric LVH, severe calcific . Previously evaluated for TAVR; deemed not a surgical candidate Chest x-ray shows moderate cardiomegaly with pulmonary edema Was given IV Lasix; blood pressure on the lower sides. Will change to torsemide 100 mg twice a day from tonight Continue spironolactone Daily weights and I's and O's Telemetry STEVE on CKD stage III Acute Urinary Retention s/p [place] Baseline around 0.9-1; presented with creatinine of 1.9 Had urinary retention Status post [place] Maintain [place] for 7 to 10 days and trial of void Cough Respiratory BioFire negative procal negative Possible from CHF Mild elevation troponin Demand ischemia High sensitivity troponin 18 with no delta difference Hyponatremia Sodium 131 on admission improved Recent ESBL UTI urine analysis doesn't suggest infection History of CAD On beta-barry, continue Hypothyroidism On Synthyroid, continue Bilateral lower EXTR lymphedema Venous duplex doesn't show DVT GERD On omeprazole, continue Chronic anemia Hb around 8 to 9, monitor History of constipation Continue stool softeners Ambulatory dysfunction PT OT when stable DVT prophylaxis Heparin subcu Disposition Telemetry . Please note the above document was generated using voice recognition software. It may contain grammatical, syntax or spelling errors. Any formal questions or concerns about the content, text or information contained within the body of this dictation should be directly addressed to the provider for clarification Admission and Anticipated Discharge Date Admission Date: August 16, 2024 Subjective Patient seen and examined at bedside. Appears tired; denies fever, chills, chest pain or shortness of breath No significant events overnight Med[place] in place draining clear urine. Review of Systems Review of Systems: All systems reviewed & are unremarkable except as noted in Subjective Physical Exam Physical Exam: General- Not in distress Head- atraumatic Eyes- PERRL. ENT- oropharynx clear Neck- supple, no JVD. Lungs- diminished b/l breath sounds, no wheezing or crackles Heart- regular rhythm; ESM murmur present, no gallop. Abdomen- normal bowel sounds, soft, nontender, no distension Extremities- b/l lower extremity edema present, no erythema seen Neuro- alert, oriented PERRL, no facial palsy; no dysarthria; moves extremities Results & Data Results & Data Vital Signs (Past 12 Hours) Vital Signs Temp Pulse Pulse Resp BP BP Pulse Ox 08/17/24 08:54 67 08/17/24 07:11 36.8 C 69 18 98/54 L 94 08/17/24 02:32 36.5 C 72 18 97/60 L 96 08/16/24 22:44 36.5 C 89 18 100/63 94 O2 Del Method O2 Flow Rate 08/17/24 08:54 08/17/24 07:11 Nasal Cannula 3 08/17/24 02:32 Nasal Cannula 08/16/24 22:44 Nasal Cannula
--- NOTE | 2024-08-17 13:19 | Cardiology Progress Note ---
Date of Service August 17, 2024 Assessment & Plan (1) Acute on chronic combined systolic (congestive) and diastolic (congestive) heart failure: (2) Urinary retention: (3) STEVE (acute kidney injury): (4) UTI (urinary tract infection): Plan Patient admitted for recurrent CHF symptoms, with worsening UTI and urinary retentions symptoms likely contributing to worsening volume status, and causing STEVE with creatinine of 1.9. Volume status improving after several doses of IV lasix. Mild hypotension noted this morning. Hold additional furosemide IV today. She received one dose IV lasix this morning. Spironolactone on hold. Monitor I+O's. Monitor renal function and electrolytes Creatinine improving this morning to 1.7. Urology consulted for urinary retention/recurrent UTI Urine culture pending Continue metoprolol. Underlying known severe . Conservative med management recommended. Previously deemed not a candidate for TAVR due to comorbidities and poor functional status. 08/17/2024 Clinically appears improved Presented predominantly with obstructive uropathy with decompensated diastolic heart failure (mild) secondary to urinary obstruction. Not clinically improving post [place] catheter insertion. Plan to resume oral diuretics as previously prescribed. Agree with current management. Contact with further questions or concerns I spent a total of 40 minutes on the date of service in preparation, delivery, and documentation of the care provided to this patient, excluding any time spent in the performance of separately billed services. This chart was completed in part utilizing Speech Voice Recognition Software. Grammatical errors, random word insertions, pronoun errors, and incomplete sentences are an occasional consequence of this system due to software limitations, ambient noise, and hardware issues. Any formal questions or concerns about the content, text, or information contained within the body of this dictation should be directly addressed to the provider for clarification. Admission and Anticipated Discharge Date Admission Date: August 16, 2024 Subjective Patient was seen and personally examined. Clinically looks better today eating and drinking. Denies any focal cardiac complaints. Notes no worsening of dyspnea. Unaware of [place] catheter in place but present no fevers or chills. Renal function is improving Review of Systems Review of Systems: All systems reviewed & are unremarkable except as noted in Subjective Physical Exam Constitutional: WD/WN, vitals as above + morbidly obese; no acute distress Respiratory: normal respiratory effort; no labored breathing Auscultation: + diminished lung sounds; no rales and no rhonchi Cardiovascular: Rate/Rhythm: regular rate and regular rhythm Heart Sounds: + murmur (III/ systolic murmur LSB) Extremities: + edema (Chronic lymphedema noted b/l; 2+ ) Neurologic: PERRL, EOMI, accommodation nl, no face palsy, no dysarthria Results & Data Vital Signs (Past 12 Hours) Vital Signs Temp Pulse Pulse Resp BP BP Pulse Ox 08/17/24 10:45 36.9 C 64 18 102/68 97 08/17/24 08:54 67 08/17/24 07:11 36.8 C 69 18 98/54 L 94 08/17/24 02:32 36.5 C 72 18 97/60 L 96 O2 Del Method O2 Flow Rate 08/17/24 10:45 Nasal Cannula 3 08/17/24 08:54 08/17/24 07:11 Nasal Cannula 3 08/17/24 02:32 Nasal Cannula Laboratory Results Laboratory Results - last 24 hr 08/16/24 08/16/24 08/16/24 16:09 17:28 20:03 WBC RBC Hgb Hct MCV MCH MCHC RDW Std Deviation RDW Coeff of Jon Plt Count MPV Immature Gran % (Auto) Neut % (Auto) Lymph % (Auto) [place] % (Auto) Eos % (Auto) Baso % (Auto) Neut # (Auto) Lymph # (Auto) [place] # (Auto) Eos # (Auto) Baso # (Auto) Immature Gran # (Auto) Absolute Nucleated RBC Nucleated RBC % (auto) Microcytosis Sodium Potassium Chloride Carbon Dioxide Anion Gap BUN Creatinine Est Cr Clr Drug Dosing eGFR BUN/Creatinine Ratio Glucose POC Glucose 144 H 115 H Calcium Troponin I High Sens 20.5 H Procalcitonin 08/17/24 08/17/24 08/17/24 06:44 07:10 11:13 WBC 6.47 RBC 2.11 L Hgb 8.2 L Hct 25.2 L MCV 119.4 H MCH 38.9 H MCHC 32.5 RDW Std Deviation 61.6 H RDW Coeff of Jon 14.6 H Plt Count 322 MPV 9.9 Immature Gran % (Auto) 0.3 Neut % (Auto) 54.1 Lymph % (Auto) 28.0 [place] % (Auto) 16.5 Eos % (Auto) 0.6 Baso % (Auto) 0.5 Neut # (Auto) 3.50 Lymph # (Auto) 1.81 [place] # (Auto) 1.07 H Eos # (Auto) 0.04 Baso # (Auto) 0.03 Immature Gran # (Auto) 0.02 Absolute Nucleated RBC 0.05 Nucleated RBC % (auto) 0.8 Microcytosis Present Sodium 135 L Potassium 4.5 Chloride 102 Carbon Dioxide 27 Anion Gap 6 BUN 48 H Creatinine 1.42 H D Est Cr Clr Drug Dosing 30.7 eGFR 35.35 BUN/Creatinine Ratio 33.8 H Glucose 112 H POC Glucose 122 H 130 H Calcium 8.4 L Troponin I High Sens Procalcitonin 0.16
[2024-08-17] MEDS: SIMETHICONE 80 MG CHEW PO ONE (14:20)
[2024-08-17] MEDS: PROMETHAZINE 6.25 MG/50.25 ML BAG IV STA (15:26)
[2024-08-17] MEDS: TORSEMIDE 100 MG TAB PO SCH (17:11)
[2024-08-18 06:48] LABS: Basophils # (auto) 0.03 K/uL (0.00-0.20); Basophils % (auto) 0.4 %; Eosinophils # (auto) 0.07 K/uL (0.00-0.50); Hematocrit (blood only) 25.2 % (37.0-47.0); Hemoglobin 8.2 g/dl (12.0-16.0); Immature Granulocytes # (auto) 0.04 K/uL (0.01-0.20); Immature Granulocytes % (auto) 0.6 %; Lymphocytes # (auto) 1.65 K/uL (1.20-3.40); Lymphocytes % (auto) 24.6 %; Mean Corpuscular Hemoglobin 38.5 pg (25.0-34.0); Mean Corpuscular Hgb Conc 32.5 g/dL (32.0-36.0); Mean Corpuscular Volume 118.3 fL (80.0-100.0); Monocytes % (auto) 13.4 %; Neutrophils # (auto) 4.03 K/uL (1.40-6.50); Nucleated RBC # (auto) 0.04 K/uL (0.00-0.12); Nucleated RBC % (auto) 0.6 %; Platelet Count 320 K/uL (130-400); RDW Coefficient of Variation 14.5 % (11.5-14.5); RDW Standard Deviation 61.4 fL (36.4-46.3); Red Blood Count 2.13 M/uL (4.20-5.40); White Blood Count 6.72 K/ul (4.8-10.8)
[2024-08-18 07:15] LABS: BUN Creatinine Ratio 34.7 (10-20); Calcium 8.4 mg/dl (8.6-10.3); Potassium 4.3 mmol/L (3.5-5.1)
[2024-08-18 07:24] LABS: Macrocytosis Present; Ovalocytes 1+; Tear Drop Cells 1+
--- NOTE | 2024-08-18 12:50 | Hospitalist Progress Note ---
Date of Service August 18, 2024 Assessment & Plan (1) Acute on chronic combined systolic (congestive) and diastolic (congestive) heart failure: (2) Urinary retention: (3) Diabetes mellitus type 2, controlled: (4) Hypothyroidism (acquired): (5) Acute renal failure superimposed on stage 3 chronic kidney disease: (6) Acute viral syndrome: (7) Physical deconditioning: Plan Patient presents with acute on chronic heart failure and kidney injury due to obstructive uropathy. Patient's renal function has returned to baseline with [place] catheter Patient has resumed her usual home diuretic dose, appears to be at compensated state Patient has been struggling with intermittent urinary retention at times worse than others for many months. Most likely this is the cause of her recurrent urinary tract infections. Recommend maintaining [place] catheter upon discharge and outpatient follow-up with urology Reviewed urine culture, no significant growth, no UTI this hospitalization Okay MedSurg Phone conversation with daughter lencho, bedside conversation with daughter Gladis. They both are very concerned that the patient could not stand up or in even transition to bedside commode at home. For them to continue care at home she needs to at least be able to walk a little bit. Daughters also report that there has been maybe a little GI viral syndrome going through the family. Concerned that maybe patient had this as well that also contributed to her weakness. No significant nausea or diarrhea here in the hospital. Consult case management for possible SNF placement Encourage patient to participate with physical therapy when they return tomorrow. Continue monitor glucose, insulin as needed Continue other home medications as prescribed Admission and Anticipated Discharge Date Admission Date: August 16, 2024 Subjective Patient overall feeling better. No chest pain, no shortness of breath Physical Exam Physical Exam: Constitutional: Alert, nontoxic, obese HEENT: Mucous membranes moist. Lungs: Decreased breath sounds, prolonged expiratory phase, few crackles at bases CV: S1-S2, regular Abdomen: Soft, nontender, nondistended Extremities: Minimal edema Neuro: No focal deficits Psych: Cooperative, normal mood Results & Data Results & Data Vital Signs (Past 12 Hours) Vital Signs Temp Pulse Pulse Resp BP Pulse Ox O2 Del Method 08/18/24 11:43 36.6 C 65 20 105/63 95 Nasal Cannula 08/18/24 10:29 Nasal Cannula 08/18/24 10:29 65 08/18/24 08:06 36.7 C 64 18 95/58 L 95 Nasal Cannula 08/18/24 05:00 08/18/24 02:40 36.7 C 68 18 121/61 94 Nasal Cannula 08/18/24 02:29 74 O2 Del Method O2 Flow Rate O2 Flow Rate 08/18/24 11:43 2 08/18/24 10:29 3 08/18/24 10:29 08/18/24 08:06 3 08/18/24 05:00 Nasal Cannula 3 08/18/24 02:40 3 08/18/24 02:29 Diagnostic Findings Reviewed imaging, laboratory and diagnostic studies. Pertinent findings as below. Hemoglobin 8.2, baseline Creatinine 1.01, improved Urine culture reviewed, No significant growth since
--- NOTE | 2024-08-19 16:59 | Hospitalist Progress Note ---
Date of Service August 19, 2024 Assessment & Plan (1) Acute on chronic combined systolic (congestive) and diastolic (congestive) heart failure: (2) Urinary retention: (3) Diabetes mellitus type 2, controlled: (4) Hypothyroidism (acquired): (5) Acute renal failure superimposed on stage 3 chronic kidney disease: (6) Acute viral syndrome: (7) Physical deconditioning: Plan Patient compensated state with her heart failure. Continue current medications Strongly encourage patient to participate with physical therapy evaluations so she will be evaluated and considered by rehab facilities. Maintain [place] catheter upon discharge. Patient with chronic issues retention and recurrent UTIs secondary to the retention. Continue other medical therapies Check labs in a.m. Admission and Anticipated Discharge Date Admission Date: August 16, 2024 Subjective No acute issues overnight. Patient eating breakfast. No complaints Physical Exam Physical Exam: Constitutional: Alert HEENT: Mucous membranes moist. Lungs: Clear to auscultation, decreased, no wheezes rales or rhonchi CV: S1-S2, regular, systolic murmur Abdomen: Soft, nontender, nondistended Extremities: Minimal edema, skin loose Neuro: No focal deficits, generalized weakness Psych: Cooperative, normal mood Results & Data Results & Data Vital Signs (Past 12 Hours) Vital Signs Temp Pulse Resp BP BP Pulse Ox O2 Del Method 08/19/24 14:38 36.3 C L 63 18 140/55 L 93 Room Air 08/19/24 13:29 36.6 C 76 20 109/61 93 Room Air 08/19/24 08:25 Nasal Cannula 08/19/24 07:49 36.6 C 62 18 104/63 95 Nasal Cannula O2 Flow Rate 08/19/24 14:38 08/19/24 13:29 08/19/24 08:25 3 08/19/24 07:49 Diagnostic Findings Reviewed imaging, laboratory and diagnostic studies. Pertinent findings as below Glucose reviewed
[2024-08-19] MEDS: DICLOFENAC SOD 1% GEL 100 GM TUBE EXT PRN (21:54)
[2024-08-20 07:07] LABS: Creatinine Clr Calc Pharmacy 51.7 ml/min; Potassium 3.9 mmol/L (3.5-5.1)
--- NOTE | 2024-08-20 08:08 | Hospitalist Progress Note ---
Date of Service August 20, 2024 Assessment & Plan (1) Acute on chronic combined systolic (congestive) and diastolic (congestive) heart failure: (2) Urinary retention: (3) Diabetes mellitus type 2, controlled: (4) Hypothyroidism (acquired): (5) Acute renal failure superimposed on stage 3 chronic kidney disease: (6) Acute viral syndrome: (7) Physical deconditioning: Plan Ms Castano is an 89-year-old female with past medical history significant for type 2 diabetes, CKD stage III, hypothyroidism, hyperlipidemia, diabetic retinopathy, first-degree atrioventricular block, chronic combined systolic and diastolic CHF, severe aortic stenosis, history of CAD,biventricular cardiac pacemaker, GERD, morbid obesity, recurrent UTI, lymphedema of both lower extremities, benign paroxysmal vertigo, anemia, aspirin allergy, ACEI/ARB contraindicated, ESBL E. 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, ventral hernia without obstruction, ambulatory dysfunction admitted due to acute on chronic heart failure as well as STEVE on CKD. Patient with multiple admissions recently, including 06/2024 for constipation and 08/08/2024 and discharged on 08/11/2024 for UTI and also acute on chronic combined systolic and diastolic CHF. She had ESBL UTI, after discussing with ID was discharged on Bactrim. Seemingly obstructive uropathy with improvement after cortes insertion #Acute on chronic combined systolic and diastolic CHF *improved #Severe aortic stenosis Presents with shortness of breath and cough and hypoxia BNP 874 Improved while on IV lasix Not candidate for TAVR resumed on home regimen Cardiology consulted, recommendations appreciated continue metoprolol xl 25 qd continue torsemide 100mg bid #nocturnal hypoxia on 2L NC qha #STEVE on CKD stage III resolved Creatinine 1.9 Baseline around 0.9-1 Had urinary retention Status post Cortes #Urinary retention cortes placed on admission, will maintain cortes plan for Urology follow up #Hyponatremia resolved Sodium 131 on admit, now 138 spironolactone held #Recent ESBL UTI UA unremarkable on admission History of CAD On beta-barry #Hypothyroidism On Synthyroid #GERD On omeprazole #Chronic anemia Hemoglobin 9.0 around baseline Follow labs #History of constipation Continue stool softeners #Ambulatory dysfunction rehab Daughter with request of following d/c to snf instructions: "1.ensure scheduled bowel regimen 2.continue compression stocking and keep feet elevated. 3.continue oxygen at night." DVT prophylaxis Heparin subcu Disposition Telemetry . Admission and Anticipated Discharge Date Admission Date: August 16, 2024 Subjective NAEO States she is feeling well overall without any new concerns Physical Exam Constitutional: WD/WN, vitals as above Respiratory: normal respiratory effort, lungs clear to auscultation Cardiovascular: RRR RAFAEL+ Gastrointestinal (Abdomen): normal bowel sounds, soft, nontender, no hepatosplenomegaly Musculoskeletal: bilateral nonpitting edema LE Results & Data Results & Data Vital Signs (Past 12 Hours) Vital Signs Temp Pulse Resp BP Pulse Ox Pulse Ox O2 Del Method 08/20/24 07:09 Nasal Cannula 08/20/24 07:02 36.5 C 72 18 110/67 91 Nasal Cannula 08/19/24 20:13 Room Air, Nasal Cannula 08/19/24 20:13 95 08/19/24 20:10 36.6 C 75 16 118/70 95 Room Air O2 Del Method O2 Flow Rate 08/20/24 07:09 2 08/20/24 07:02 2 08/19/24 20:13 3 08/19/24 20:13 Room Air 08/19/24 20:[address] [facility] 08/20/24 06:32 Sodium 138 Potassium 3.9 Chloride 101 Carbon Dioxide 30 BUN 26 H Creatinine 0.84 Glucose 126 H Calcium 9.0 Medications Administered Home Medications Medication Instructions Recorded Confirmed Last Taken benzonatate 100 mg capsule 100 mg PO TID PRN Cough 08/16/24 08/16/24 Unknown bisacodyl 5 mg tablet,delayed 10 mg PO BID PRN Constipation 08/16/24 08/16/24 Unknown release (Dulcolax (bisacodyl)) cholecalciferol (vitamin D3) 25 25 mcg PO DAILY 08/16/24 08/16/24 Unknown mcg (1,000 unit) tablet (Vitamin D3) colchicine 0.6 mg tablet 0.6 mg PO BID PRN gout attack 08/16/24 08/16/24 Unknown conjugated estrogens 0.625 mg/gram 1 applic vaginal HS 08/16/24 08/16/24 Unknown vaginal cream (Premarin) cyanocobalamin (vitamin B-12) 1,000 mcg PO DAILY 08/16/24 08/16/24 Unknown 1,000 mcg tablet d-mannose 500 mg capsule 1,000 mg PO BID 08/16/24 08/16/24 Unknown diclofenac sodium 1 % topical gel 2 g topical TID PRN Knee pain 08/16/24 08/16/24 Unknown dulaglutide 0.75 mg/0.5 mL 0.75 mg subcut WK 08/16/24 08/16/24 Unknown subcutaneous pen injector (Trulicity) glucosamine sulf dipot 1 cap PO BID 08/16/24 08/16/24 Unknown chlr,msm,chond 550 mg-C 30 mg-vandana 1 mg capsule (Glucosamine Chondroitin) levothyroxine 88 mcg tablet 88 mcg PO DAILY 08/16/24 08/16/24 Unknown magnesium oxide 400 mg PO QDL 08/16/24 08/16/24 Unknown meclizine 25 mg tablet 25 mg PO TID PRN Dizziness Or 08/16/24 08/16/24 Unknown Vertigo metoprolol succinate 25 mg 25 mg PO PM 08/16/24 08/16/24 Unknown tablet,extended release 24 hr mirabegron 25 mg tablet,extended 25 mg PO DAILY 08/16/24 08/16/24 Unknown release 24 hr (Myrbetriq) nitrofurantoin 100 mg PO HS 08/16/24 08/16/24 Unknown monohydrate/macrocrystals 100 mg capsule omeprazole 20 mg capsule,delayed 20 mg PO DAILY 08/16/24 08/16/24 Unknown release ondansetron HCl 4 mg tablet 4 mg PO Q6H PRN Nausea And Vomiting 08/16/24 08/16/24 Unknown polyethylene glycol 3350 17 17 g PO DAILY 08/16/24 08/16/24 Unknown gram/dose oral powder potassium chloride 20 mEq 20 meq PO BID 08/16/24 08/16/24 Unknown tablet,extended release(part/cryst) sennosides 8.6 mg-docusate sodium 3 tab-cap PO BID 08/16/24 08/16/24 Unknown 50 mg tablet (Senokot-S) spironolactone 25 mg tablet 12.5 mg PO DAILY 08/16/24 08/16/24 Unknown torsemide 100 mg tablet 100 mg PO BID 08/16/24 08/16/24 Unknown Active Medications Generic Name Dose Route Start Last Admin Trade Name Freq PRN Reason Stop Dose Admin Cyanocobalamin 1,000 mcg 08/16/24 09:00 08/20/24 08:21 Cyanocobalamin (B-12) 500 Mcg Tablet PO 09/15/24 08:59 1,000 mcg DAILY BRENT Administration Diclofenac Sodium 2 gm 08/16/24 05:30 08/19/24 21:54 Diclofenac Sod 1% Gel 100 Gm Tube EXT 09/15/24 05:29 2 gm TID PRN Administration Knee pain Protocol Estrogens Conjugated 1 appln 08/16/24 21:00 08/19/24 20:07 Premarin Vag Crm 14 Appln/30 Gm Tube PV 09/15/24 20:59 1 appln HS BRENT Administration Heparin Sodium (Porcine) 7,500 units 08/16/24 09:00 08/20/24 08:17 Heparin Sod 5,000 Unit/0.5 Ml Vial SQ 09/15/24 08:59 7,500 units Q12 BRENT Administration Insulin Aspart 0 units 08/16/24 07:30 08/20/24 12:55 Insulin Aspart Per Unit Charge SC 09/15/24 07:29 Not Given ACHS BRENT Levothyroxine Sodium 88 mcg 08/16/24 06:30 08/20/24 05:26 Levothyroxine Sodium 88 Mcg Tablet PO 09/15/24 06:29 88 mcg DAILYBB BRENT Administration Magnesium Oxide 400 mg 08/16/24 11:30 08/20/24 12:24 Magnesium Oxide 400 Mg Tab PO 09/15/24 11:29 400 mg QDL BRENT Administration Meclizine HCl 25 mg 08/16/24 05:30 08/16/24 08:11 Meclizine Hcl 25 Mg Tab PO 09/15/24 05:29 25 mg TID PRN Administration Dizziness Or Vertigo Metoprolol Succinate 25 mg 08/16/24 21:00 08/19/24 20:13 Metoprolol Succ 25mg Ext Rel Tab PO 09/15/24 20:59 25 mg PM BRENT Administration Pantoprazole Sodium 40 mg 08/16/24 09:00 08/20/24 08:21 Pantoprazole 40 Mg Tab PO 09/15/24 08:59 40 mg DAILY BRENT Administration Polyethylene Glycol 17 gm 08/16/24 09:00 08/20/24 08:19 Polyethylene (Miralax) 17 Gm Pack PO 09/15/24 08:59 17 gm DAILY BRENT Administration Potassium Chloride 20 meq 08/16/24 09:00 08/20/24 08:20 Potassium Chloride Crtab 20 Meq Tabcr PO 09/15/24 08:59 20 meq BID BRENT Administration Senna/Docusate Sodium 3 tab 08/16/24 09:00 08/20/24 08:20 Docusate Sodium/Senna 50/8.6mg Tab PO 09/15/24 08:59 3 tab BID BRENT Administration Torsemide 100 mg 08/17/24 17:00 08/20/24 08:20 Torsemide 100 Mg Tab PO 09/16/24 16:59 100 mg BID17 BRENT Administration Vibegron 75 mg 08/16/24 09:00 08/20/24 08:21 Vibegron 75 Mg Tab PO 09/15/24 08:59 75 mg DAILY BRENT Administration Vitamin D 25 mcg 08/16/24 09:00 08/20/24 08:20 Cholecalciferol 25 Mcg (1000 Units) Tab PO 09/15/24 08:59 25 mcg DAILY BRENT Administration
[2024-08-20] MEDS: DICLOFENAC SOD 1% GEL 100 GM TUBE EXT SCH (17:31)
[2024-08-20] MEDS: bisacodyL 5 MG TABEC PO PRN (18:18)
--- NOTE | 2024-08-21 13:22 | Hospitalist Progress Note ---
Date of Service August 21, 2024 Assessment & Plan (1) Acute on chronic combined systolic (congestive) and diastolic (congestive) heart failure: (2) Urinary retention: (3) Diabetes mellitus type 2, controlled: (4) Hypothyroidism (acquired): (5) Acute renal failure superimposed on stage 3 chronic kidney disease: (6) Acute viral syndrome: (7) Physical deconditioning: Plan Ms Castano is an 89-year-old female with past medical history significant for type 2 diabetes, CKD stage III, hypothyroidism, hyperlipidemia, diabetic retinopathy, first-degree atrioventricular block, chronic combined systolic and diastolic CHF, severe aortic stenosis, history of CAD,biventricular cardiac pacemaker, GERD, morbid obesity, recurrent UTI, lymphedema of both lower extremities, benign paroxysmal vertigo, anemia, aspirin allergy, ACEI/ARB contraindicated, ESBL E. 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, ventral hernia without obstruction, ambulatory dysfunction admitted due to acute on chronic heart failure as well as STEVE on CKD. Patient with multiple admissions recently, including 06/2024 for constipation and 08/08/2024 and discharged on 08/11/2024 for UTI and also acute on chronic combined systolic and diastolic CHF. She had ESBL UTI, after discussing with ID was discharged on Bactrim. Seemingly obstructive uropathy with improvement after cortes insertion. Seeking various eitologies for acute retention. Suspect constipation contributing, therefore will await void trail until BM Also will hold mirabegron as possible side effect as well #Constipation s/p suppository will await for more BM prior to void trial #Acute on chronic combined systolic and diastolic CHF *improved #Severe aortic stenosis Presents with shortness of breath and cough and hypoxia BNP 874 Improved while on IV lasix Not candidate for TAVR resumed on home regimen Cardiology consulted, recommendations appreciated continue metoprolol xl 25 qd continue torsemide 100mg bid #nocturnal hypoxia on 2L NC qha #STEVE on CKD stage III resolved Creatinine 1.9 Baseline around 0.9-1 Had urinary retention Status post Cortes #Urinary retention Cortes placed on admission, will maintain cortes with possible void trial tomorrow discontinue mirabegron plan for Urology follow up #Hyponatremia resolved Sodium 131 on admit, now 138 spironolactone held #Recent ESBL UTI UA unremarkable on admission History of CAD On beta-barry #Hypothyroidism On Synthyroid #GERD On omeprazole #Chronic anemia Hemoglobin 9.0 around baseline Follow labs #History of constipation Continue stool softeners #Ambulatory dysfunction rehab Daughter with request of following d/c to snf instructions: "1.ensure scheduled bowel regimen 2.continue compression stocking and keep feet elevated. 3.continue oxygen at night." DVT prophylaxis Heparin subcu Disposition Telemetry . Admission and Anticipated Discharge Date Admission Date: August 16, 2024 Subjective feeling constipated this am, last bm 08/17 trailed suppository with no success--however, during exam reported she may be able to pass bm Reports strong appetite and no other concerns Physical Exam Constitutional: WD/WN, vitals as above Respiratory: normal respiratory effort, lungs clear to auscultation Cardiovascular: RRR, no murmur, no edema Gastrointestinal (Abdomen): normal bowel sounds, soft, nontender, no hepatosplenomegaly Results & Data Results & Data Vital Signs (Past 12 Hours) Vital Signs Temp Pulse Resp BP BP Pulse Ox O2 Del Method 08/21/24 10:17 Room Air 08/21/24 08:18 76 100/58 L 08/21/24 07:48 36.6 C 61 16 92/55 L 93/59 L 96 Nasal Cannula O2 Flow Rate 08/21/24 10:17 08/21/24 08:18 08/21/24 07:48 2 Medications Administered Home Medications Medication Instructions Recorded Confirmed Last Taken benzonatate 100 mg capsule 100 mg PO TID PRN Cough 08/16/24 08/16/24 Unknown bisacodyl 5 mg tablet,delayed 10 mg PO BID PRN Constipation 08/16/24 08/16/24 Unknown release (Dulcolax (bisacodyl)) cholecalciferol (vitamin D3) 25 25 mcg PO DAILY 08/16/24 08/16/24 Unknown mcg (1,000 unit) tablet (Vitamin D3) colchicine 0.6 mg tablet 0.6 mg PO BID PRN gout attack 08/16/24 08/16/24 Unknown conjugated estrogens 0.625 mg/gram 1 applic vaginal HS 08/16/24 08/16/24 Unknown vaginal cream (Premarin) cyanocobalamin (vitamin B-12) 1,000 mcg PO DAILY 08/16/24 08/16/24 Unknown 1,000 mcg tablet d-mannose 500 mg capsule 1,000 mg PO BID 08/16/24 08/16/24 Unknown diclofenac sodium 1 % topical gel 2 g topical TID PRN Knee pain 08/16/24 08/16/24 Unknown dulaglutide 0.75 mg/0.5 mL 0.75 mg subcut WK 08/16/24 08/16/24 Unknown subcutaneous pen injector (Trulicity) glucosamine sulf dipot 1 cap PO BID 08/16/24 08/16/24 Unknown chlr,msm,chond 550 mg-C 30 mg-vandana 1 mg capsule (Glucosamine Chondroitin) levothyroxine 88 mcg tablet 88 mcg PO DAILY 08/16/24 08/16/24 Unknown magnesium oxide 400 mg PO QDL 08/16/24 08/16/24 Unknown meclizine 25 mg tablet 25 mg PO TID PRN Dizziness Or 08/16/24 08/16/24 Unknown Vertigo metoprolol succinate 25 mg 25 mg PO PM 08/16/24 08/16/24 Unknown tablet,extended release 24 hr mirabegron 25 mg tablet,extended 25 mg PO DAILY 08/16/24 08/16/24 Unknown release 24 hr (Myrbetriq) nitrofurantoin 100 mg PO HS 08/16/24 08/16/24 Unknown monohydrate/macrocrystals 100 mg capsule omeprazole 20 mg capsule,delayed 20 mg PO DAILY 08/16/24 08/16/24 Unknown release ondansetron HCl 4 mg tablet 4 mg PO Q6H PRN Nausea And Vomiting 08/16/24 08/16/24 Unknown polyethylene glycol 3350 17 17 g PO DAILY 08/16/24 08/16/24 Unknown gram/dose oral powder potassium chloride 20 mEq 20 meq PO BID 08/16/24 08/16/24 Unknown tablet,extended release(part/cryst) sennosides 8.6 mg-docusate sodium 3 tab-cap PO BID 08/16/24 08/16/24 Unknown 50 mg tablet (Senokot-S) spironolactone 25 mg tablet 12.5 mg PO DAILY 08/16/24 08/16/24 Unknown torsemide 100 mg tablet 100 mg PO BID 08/16/24 08/16/24 Unknown Active Medications Generic Name Dose Route Start Last Admin Trade Name Freq PRN Reason Stop Dose Admin Bisacodyl 10 mg 08/16/24 05:30 08/21/24 05:56 Bisacodyl 5 Mg Tabec PO 09/15/24 05:29 10 mg BID PRN Administration Constipation Cyanocobalamin 1,000 mcg 08/16/24 09:00 08/21/24 09:08 Cyanocobalamin (B-12) 500 Mcg Tablet PO 09/15/24 08:59 1,000 mcg DAILY BRENT Administration Diclofenac Sodium 2 gm 08/16/24 05:30 08/19/24 21:54 Diclofenac Sod 1% Gel 100 Gm Tube EXT 09/15/24 05:29 2 gm TID PRN Administration Knee pain Protocol Diclofenac Sodium 2 gm 08/20/24 17:30 08/21/24 09:35 Diclofenac Sod 1% Gel 100 Gm Tube EXT 09/19/24 17:29 2 gm Q8H BRENT Administration Protocol Estrogens Conjugated 1 appln 08/16/24 21:00 08/20/24 20:08 Premarin Vag Crm 14 Appln/30 Gm Tube PV 09/15/24 20:59 1 appln HS BRENT Administration Heparin Sodium (Porcine) 7,500 units 08/16/24 09:00 08/21/24 09:15 Heparin Sod 5,000 Unit/0.5 Ml Vial SQ 09/15/24 08:59 7,500 units Q12 BRENT Administration Insulin Aspart 0 units 08/16/24 07:30 08/21/24 12:25 Insulin Aspart Per Unit Charge SC 09/15/24 07:29 Not Given ACHS BRENT Levothyroxine Sodium 88 mcg 08/16/24 06:30 08/21/24 05:53 Levothyroxine Sodium 88 Mcg Tablet PO 09/15/24 06:29 88 mcg DAILYBB BRENT Administration Magnesium Oxide 400 mg 08/16/24 11:30 08/21/24 12:21 Magnesium Oxide 400 Mg Tab PO 09/15/24 11:29 400 mg QDL BRENT Administration Meclizine HCl 25 mg 08/16/24 05:30 08/16/24 08:11 Meclizine Hcl 25 Mg Tab PO 09/15/24 05:29 25 mg TID PRN Administration Dizziness Or Vertigo Metoprolol Succinate 25 mg 08/16/24 21:00 08/20/24 20:08 Metoprolol Succ 25mg Ext Rel Tab PO 09/15/24 20:59 25 mg PM BRENT Administration Pantoprazole Sodium 40 mg 08/16/24 09:00 08/21/24 09:09 Pantoprazole 40 Mg Tab PO 09/15/24 08:59 40 mg DAILY BRENT Administration Polyethylene Glycol 17 gm 08/16/24 09:00 08/21/24 09:09 Polyethylene (Miralax) 17 Gm Pack PO 09/15/24 08:59 17 gm DAILY BRENT Administration Potassium Chloride 20 meq 08/16/24 09:00 08/21/24 09:13 Potassium Chloride Crtab 20 Meq Tabcr PO 09/15/24 08:59 20 meq BID BRENT Administration Senna/Docusate Sodium 3 tab 08/16/24 09:00 08/21/24 09:13 Docusate Sodium/Senna 50/8.6mg Tab PO 09/15/24 08:59 3 tab BID BRENT Administration Torsemide 100 mg 08/17/24 17:00 08/21/24 09:39 Torsemide 100 Mg Tab PO 09/16/24 16:59 Not Given BID17 BRENT Vitamin D 25 mcg 08/16/24 09:00 08/21/24 09:08 Cholecalciferol 25 Mcg (1000 Units) Tab PO 09/15/24 08:59 25 mcg DAILY BRENT Administration
[2024-08-21] MEDS: bisacodyL 10 MG SUPP PR STA (13:43)
[2024-08-21] MEDS: bisacodyL 5 MG TABEC PO ONE (16:33)
[2024-08-22 00:26] LABS: Appearance Urine Clear (Clear); Bacteria Urine Automated 2+ (None Seen); Bilirubin Urine Negative (Negative); Blood Urine Negative (Negative); Cast Urine Automated 0-2 /lpf (0-2); Color Urine Yellow; Epithelial Cell Urine Auto 0-2 /hpf (0-2); Glucose Urine UA Negative (Negative); Ketones Urine Negative (Negative); Leukocyte Esterase Urine 3+ (Negative); Nitrite Urine Negative (Negative); Protein Urine Negative (Negative); RBC Urine Automated 0-2 /hpf (0-2); Specific Gravity Urine 1.008 (1.000-1.030); Urobilinogen Urine Negative (Negative); WBC Urine Automated >50 /hpf (0-5); pH Urine 7.5 (4.5-7.5)
[2024-08-22 07:01] LABS: Hematocrit (blood only) 27.3 % (37.0-47.0); Hemoglobin 9.2 g/dl (12.0-16.0); Mean Corpuscular Hemoglobin 38.8 pg (25.0-34.0); Mean Corpuscular Hgb Conc 33.7 g/dL (32.0-36.0); Mean Corpuscular Volume 115.2 fL (80.0-100.0); Mean Platelet Volume 9.9 fL (9.4-12.4); Nucleated RBC # (auto) 0.12 K/uL (0.00-0.12); Nucleated RBC % (auto) 1.7 %; Platelet Count 325 K/uL (130-400); RDW Coefficient of Variation 15.1 % (11.5-14.5); RDW Standard Deviation 63.7 fL (36.4-46.3); Red Blood Count 2.37 M/uL (4.20-5.40); White Blood Count 6.93 K/ul (4.8-10.8)
[2024-08-22 07:23] LABS: BUN Creatinine Ratio 23.5 (10-20); Calcium 9.5 mg/dl (8.6-10.3); Creatinine Clr Calc Pharmacy 44.3 ml/min; Magnesium 1.8 mg/dl (1.7-2.4); Phosphorus 4.6 mg/dl (2.5-4.9); Potassium 4.2 mmol/L (3.5-5.1)
--- NOTE | 2024-08-22 14:49 | Hospitalist Progress Note ---
Date of Service August 22, 2024 Assessment & Plan (1) Acute on chronic combined systolic (congestive) and diastolic (congestive) heart failure: (2) Urinary retention: (3) Diabetes mellitus type 2, controlled: (4) Hypothyroidism (acquired): (5) Acute renal failure superimposed on stage 3 chronic kidney disease: (6) Acute viral syndrome: (7) Physical deconditioning: Plan Patient is compensated state with her heart failure. Renal function Has normalized. Reviewed urinalysis, suspect asymptomatic bacteriuria, will await culture and not empirically treat at this time.Normal WBCs, no fever, mentation seems to be at baseline. Continue therapies Awaiting possible placement to [place] care Admission and Anticipated Discharge Date Admission Date: August 16, 2024 Subjective No acute issues overnight Physical Exam Physical Exam: Constitutional: Alert, nontoxic HEENT: Mucous membranes moist. Lungs: Clear to auscultation, decreased, no wheezes rales or rhonchi CV: S1-S2, regular Abdomen: Soft, nontender, nondistended Extremities: Minimal edema Neuro: No focal deficits, generalized weakness Psych: Cooperative, normal mood Results & Data Results & Data Vital Signs (Past 12 Hours) Vital Signs Temp Pulse Resp BP Pulse Ox O2 Del Method O2 Flow Rate 08/22/24 07:39 36.4 C L 72 18 103/65 95 Room Air 08/22/24 07:15 Nasal Cannula 2 Diagnostic Findings Reviewed imaging, laboratory and diagnostic studies. Pertinent findings as below. Hemoglobin 9.2 improved BMP stable Glucoses reviewed Urinalysis reviewed, suspect asymptomatic bacteriuria
[2024-08-22] MEDS: PROMETHAZINE 6.25 MG/50.25 ML BAG IV STA (21:04)
[2024-08-22] MEDS: OPTIRAY 320 100ml IV ONE (21:41)
[2024-08-22] MEDS: ACETAMINOPHEN 1,000 MG/100 ML VIAL IV STA (21:56)
--- NOTE | 2024-08-23 00:29 | CT Scan Report ---
Exam(s): CT ABDOMEN + PELVIS With Contrast IV Amt: 90 ml optiray 320 EXAM: CT Abdomen and Pelvis With Intravenous Contrast CLINICAL HISTORY: Reason for exam: abd pain. TECHNIQUE: Axial computed tomography images of the abdomen and pelvis with intravenous contrast. CTDI is 27.97 mGy and DLP is 1518.8 mGy-cm. Automated exposure control was utilized for the study. A dose lowering technique was utilized adhering to the principles of ALARA. CONTRAST: Patient received 90 ml optiray 320 of IV contrast COMPARISON: No relevant prior studies available. FINDINGS: Lung bases: Compressive atelectasis of both lower lobes. Pleural space: Tiny bilateral pleural effusions. ABDOMEN: Liver: Unremarkable. No mass. Gallbladder and bile ducts: Postoperative changes prior cholecystectomy. No ductal dilation. Pancreas: Unremarkable. No mass. No ductal dilation. Spleen: Unremarkable. No splenomegaly. Adrenals: Unremarkable. No mass. Kidneys and ureters: Simple 4.4 cm right renal cyst. No follow-up of this simple cyst is necessary. Partially calcified 1.5 cm right lower pole renal cyst. No hydronephrosis. Stomach and bowel: Large amount of stool within the rectum. No mucosal thickening. PELVIS: Appendix: No findings to suggest acute appendicitis. Bladder: [place] catheter within a nondistended urinary bladder. Reproductive: Uterus is surgically absent. ABDOMEN and PELVIS: Intraperitoneal space: Unremarkable. No free air. No significant fluid collection. Bones/joints: No acute fracture. No dislocation. Soft tissues: Unremarkable. Vasculature: Aortic valvular calcifications. No abdominal aortic aneurysm. Lymph nodes: Unremarkable. No enlarged lymph nodes. IMPRESSION: Tiny bilateral pleural effusions. Electronically signed by: Jimbo Louie MD 08/23/24 00:28 AM
--- NOTE | 2024-08-23 02:03 | Communication Note ---
Date of Service: August 23, 2024 Patient with achy abdominal pain and nausea symptoms last night as per RN CT abdomen pelvis No acute abdominal findings UA WBC esterase AP Complicated UTI History ESBL organism Urine CS, Ertapenem
[2024-08-23] MEDS: ERTAPENEM 1000MG 1,000 MG/10 ML SYR IV SCH (02:27)
[2024-08-23] MEDS: PROMETHAZINE 6.25 MG/50.25 ML BAG IV PRN (03:51)
--- NOTE | 2024-08-23 16:59 | Hospitalist Progress Note ---
Date of Service August 23, 2024 Assessment & Plan (1) Acute on chronic combined systolic (congestive) and diastolic (congestive) heart failure: (2) Urinary retention: (3) Diabetes mellitus type 2, controlled: (4) Hypothyroidism (acquired): (5) Acute renal failure superimposed on stage 3 chronic kidney disease: (6) Acute viral syndrome: (7) Physical deconditioning: Plan Overall patient is stable and improved from admission. Patient has chronic recurrent urinary retention, Med[place] catheter has been in since admission. Enterococcus is a very common colonizer of Med[place]. Patient does not appear to be suffering any significant symptoms associated with this and suspect this is colonization of the [place] catheter and not a true UTI. Enterococcus not sensitive to ertapenem. Discontinue and continue to monitor patient off antibiotics Continue other medications Continue therapies Case management working with [facility] to [place] care Updated patient's daughter Josselyn via phone. Would like to do a voiding trial prior to discharge. Patient has had intermittent issues with urinary retention. Daughter is concerned that patient is limiting her mobility because she does not want to move with the [place] catheter. Will discontinue Med[place] catheter straight cath as needed. Admission and Anticipated Discharge Date Admission Date: August 16, 2024 Subjective Patient this morning felt a little block, improved this afternoon. Events of last night noted. Physical Exam Physical Exam: Constitutional: Alert, nontoxic HEENT: Mucous membranes moist. Lungs: Clear to auscultation, decreased, no wheezes rales or rhonchi CV: S1-S2, regular Abdomen: Soft, nontender, nondistended Extremities: Minimal edema Neuro: No focal deficits Psych: Cooperative, normal mood Results & Data Results & Data Vital Signs (Past 12 Hours) Vital Signs Temp Pulse Resp BP Pulse Ox O2 Del Method O2 Flow Rate 08/23/24 15:47 36.4 C L 72 18 111/59 L 96 Nasal Cannula 2 08/23/24 07:30 Nasal Cannula 2 08/23/24 07:13 36.3 C L 69 18 93/53 L 97 Nasal Cannula 2 Diagnostic Findings Reviewed imaging, laboratory and diagnostic studies. Pertinent findings as below. Urine culture growing Enterococcus
[2024-08-24 08:03] VITALS: RESP 18; TEMP 98.1; O2SAT 98
[2024-08-24 08:54] LABS: Hematocrit (blood only) 26.7 % (37.0-47.0); Hemoglobin 8.7 g/dl (12.0-16.0); Mean Corpuscular Hemoglobin 38.2 pg (25.0-34.0); Mean Corpuscular Hgb Conc 32.6 g/dL (32.0-36.0); Mean Corpuscular Volume 117.1 fL (80.0-100.0); Mean Platelet Volume 9.7 fL (9.4-12.4); Nucleated RBC # (auto) 0.05 K/uL (0.00-0.12); Platelet Count 291 K/uL (130-400); RDW Coefficient of Variation 15.3 % (11.5-14.5); RDW Standard Deviation 66.5 fL (36.4-46.3); Red Blood Count 2.28 M/uL (4.20-5.40)
[2024-08-24 09:05] LABS: BUN Creatinine Ratio 19.2 (10-20); Calcium 9.6 mg/dl (8.6-10.3); Creatinine Clr Calc Pharmacy 41.8 ml/min; Potassium 4.1 mmol/L (3.5-5.1)
--- NOTE | 2024-08-24 10:58 | Discharge Summary ---
Discharge Summary Date of Service August 24, 2024 Principal Dx & Hospital Course #1 = Principal Diagnosis (1) Acute on chronic combined systolic (congestive) and diastolic (congestive) heart failure: (2) Urinary retention: (3) Diabetes mellitus type 2, controlled: (4) Hypothyroidism (acquired): (5) Acute renal failure superimposed on stage 3 chronic kidney disease: (6) Acute viral syndrome: (7) Physical deconditioning: (8) Bacteriuria, chronic: Plan Patient presented to the emergency room with severe weakness in her legs and inability to stand or even ambulate in her home this is a change from her baseline. In the emergency room did have acute kidney injury and evidence of urinary retention. Patient was cared for in the hospital. [place] catheter was inserted and she had immediate return of urine and her acute kidney injury resolved spontaneously with relief of the obstruction. Her acute CHF that had decompensated due to her urinary retention also improved rapidly with some additional IV diuretics and relief of the urinary obstruction. She was transition back to her baseline torsemide diuretic. [place] catheter was kept in through most of her hospitalization. She is seen by therapies. It was determi henok that she was too weak to return to home. Case management was involved in her care. They will help coordinate discharge to detention facility. The day prior to discharge patient and family want to give a voiding trial. Med[place] catheter was removed. She did need to be straight cathed once overnight due to ongoing retention. Will see if she is able to urinate on her own this morning if not we will replace Medellin catheter and patient will be discharged to a detention facility with a Medellin catheter. Patient has had recurrent urinary tract infections this most likely due to her chronic urinary retention. Most recent urine culture is growing Enterococcus. This is when she had the Med[place] in. Enterococcus is a common colonization pathogen. Highly suspect this is colonization. Patient did not have any symptoms of a urinary tract infection. Chose not to treat this with any type of antibiotics. Would only treat patient for urinary tract infection if she would get a fever, leukocytosis or hematuria. Would not treat for UTI based solely on some intermittent confusion. Patient will be discharged to [facility] for ongoing care and rehabilitation Notes For Next Care Provider Medell[place] catheter/straight catheter care as needed and per protocol See above on instructions when to consider treating urine Medication Changes From Visit Scheduled Macrobid discontinued Admission HPI Per Admitting Provider 89-year-old female with past medical history significant for type 2 diabetes, CKD stage III, hypothyroidism, hyperlipidemia, diabetic retinopathy, first- degree atrioventricular block, chronic combined systolic and diastolic CHF, severe aortic stenosis, history of CAD,biventricular cardiac pacemaker, GERD, morbid obesity, recurrent UTI, lymphedema of both lower extremities, benign paroxysmal vertigo, anemia, aspirin allergy, ACEI/ARB contraindicated, ESBL E. 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, ventral hernia without obstruction, ambulatory dysfunction and ambulates with a rollator walker and lives alone at home and has 24hrs caregivers and daughter lives close by was brought in because of weakness, shortness of breath and urinary retention. Patient was recently admitted for constipation , end of June. She was again admitted on 08/08/2024 and discharged on 08/11/2024 for UTI and also acute on chronic combined systolic and diastolic CHF. She had ESBL UTI, after discussing with ID was discharged on Bactrim. She is taking torsemide 100 mg twice daily. As per daughter's after going home she walked with walker in the daytime on the discharge day but since the night of the same day she is mostly sitting in the wheelchair. She also coughing a lot and bringing phlegm. And having nausea. And today whole day she could not micturate. She is on oxygen mostly while sleeping but lately is using oxygen all day. No fevers. Earlier had chest pain but denies any chest pain now. Denies any headache. On and off double vision which is chronic. Currently no runny nose or sore throat. Currently no abdominal pain. Moving bowels ok with the stool softeners. Daughter thinks the lower extremity edema is more than her usual. In the ER after Med[place] catheter placed she seemed drained about 1.1 L of the urine. She also received Lasix in the ER. Resting comfortably currently. Daughters are in the room who helped with H&P. Past medical history. As mentioned above Past surgical history. Bilateral total knee replacement. ESWL. Laparoscopic cholecystectomy. Right suture repair of entropion. Total hysterectomy for fibroids. Social history. . No smoking. No alcohol use. No drug use. Family history. Mother had diabetes. NC. Hypertension. Admission Exam Per Admitting Provider See H&P Discharge Exam Constitutional: Alert, nontoxic, obese HEENT: Mucous membranes moist. Lungs: Clear to auscultation, decreased, no wheezes rales or rhonchi CV: S1-S2, regular, systolic murmur Abdomen: Soft, nontender, nondistended Extremities: Trace edema, skin on lower extremities loose Neuro: No focal deficits, generalized weakness Psych: Cooperative, normal mood Updated Medication List Medication Instructions Recorded Confirmed Type d-mannose 500 mg capsule 1,000 mg PO BID 08/16/24 08/16/24 History glucosamine sulf dipot 1 cap PO BID 08/16/24 08/16/24 History chlr,msm,chond 550 mg-C 30 mg-vandana 1 mg capsule (Glucosamine Chondroitin) nitrofurantoin 100 mg PO HS 08/16/24 08/16/24 History monohydrate/macrocrystals 100 mg capsule ondansetron HCl 4 mg tablet 4 mg PO Q6H PRN Nausea And Vomiting 08/16/24 08/16/24 History acetaminophen 325 mg tablet 650 mg (2 x 325 mg) PO Q4H PRN 08/24/24 Rx fever or pain #100 tabs benzonatate 100 mg capsule 100 mg PO TID PRN Cough #30 caps 08/24/24 Rx bisacodyl 5 mg tablet,delayed 10 mg (2 x 5 mg) PO BID PRN 08/24/24 Rx release (Dulcolax (bisacodyl)) Constipation #10 tabs cholecalciferol (vitamin D3) 25 25 mcg PO DAILY #30 tabs 08/24/24 Rx mcg (1,000 unit) tablet (Vitamin D3) colchicine 0.6 mg tablet 0.6 mg PO BID PRN gout attack #10 08/24/24 Rx tabs conjugated estrogens 0.625 mg/gram 1 applic vaginal HS #30 grams 08/24/24 Rx vaginal cream (Premarin) cyanocobalamin (vitamin B-12) 1,000 mcg PO DAILY #30 tabs 08/24/24 Rx 1,000 mcg tablet diclofenac sodium 1 % topical gel 2 g topical TID PRN Knee pain #100 08/24/24 Rx grams dulaglutide 0.75 mg/0.5 mL 0.75 mg (0.5 mL) subcut WK #2 mL 08/24/24 Rx subcutaneous pen injector (Trulicity) levothyroxine 88 mcg tablet 88 mcg PO DAILY #30 tabs 08/24/24 Rx magnesium oxide 400 mg PO QDL #60 tabs 08/24/24 Rx meclizine 25 mg tablet 25 mg PO TID PRN Dizziness Or 08/24/24 Rx Vertigo #30 tabs metoprolol succinate 25 mg 25 mg PO PM #30 tabs 08/24/24 Rx tablet,extended release 24 hr mirabegron 25 mg tablet,extended 25 mg PO DAILY #30 tabs 08/24/24 Rx release 24 hr (Myrbetriq) omeprazole 20 mg capsule,delayed 20 mg PO DAILY #30 caps 08/24/24 Rx release polyethylene glycol 3350 17 17 g PO DAILY #510 grams 08/24/24 Rx gram/dose oral powder potassium chloride 20 mEq 20 meq PO BID #60 tabs 08/24/24 Rx tablet,extended release(part/cryst) sennosides 8.6 mg-docusate sodium 3 tab-cap (3 x 8.6-50 mg) PO BID 08/24/24 Rx 50 mg tablet (Senokot-S) #60 tabs spironolactone 25 mg tablet 12.5 mg (1/2 x 25 mg) PO DAILY #30 08/24/24 Rx tabs torsemide 100 mg tablet 100 mg PO BID #60 tabs 08/24/24 Rx Hospital Stay Data Consultations 08/16/24 00:52 ED Decision to Admit Stat 08/16/24 08:00 Consult Cardiology Routine Consult Urology Routine Diagnostic Imagining Performed 08/16/24 05:30 US venous doppler LE BI Routine 08/22/24 21:06 CT Abd and Pelvis [CT abd pelvis IV con only] Stat Reviewed imaging, laboratory and diagnostic studies. Pertinent findings as below. WBCs 5.0 Hemoglobin 8.7 Platelets 291 Electrolytes stable Creatinine 1.04 Glucose 206 Most recent urine culture growing Enterococcus, suspect this is a colonizer with her [place] catheter. Choosing not to treat colonization. Patient has no symptoms relatable to be symptomatic urinary tract infection. Pending Results Patient Have Any Pending Studies at Discharge: No Discharge Instructions Given to Patient (Per Discharging Provider) Physical therapy and Occupational Therapy If patient presents without a Medell[place] catheter, straight cath as needed for urinary retention If patient presents with [place] catheter, routine [place] care, follow-up with urology for regular exchanges and voiding trial Total Time Total Time Spent Total Time Spent (In Minutes): 39
[2024-08-24 13:30] VITALS: BP 96/58; PULSE 74
== END 2024-08-24 13:56 | DRG 291 ==
LOC: ED 22:42 → SUATTDRO 08-16 01:59 → 2S 08-16 01:59 → 3N 08-18 21:13